=== PATIENT | male | born 1945 | race Caucasian/White ===

== ENCOUNTER 2024-02-26 10:42 | Inpatient (IN) | payer MEDICARE, OTHER, SELFPAY ==
[2024-02-26 10:49] VITALS: BP 144/72; PULSE 68; TEMP 36.6; O2SAT 97; BMI 29.1
--- NOTE | 2024-02-26 11:17 | ED.MALEGU1 ---
HPI - Male Genitourinary General Chief complaint: Urogenital-Male Stated complaint: difficulty urinating Time Seen by Provider: 02/26/24 10:44 Source: patient Mode of arrival: walk-in History of Present Illness HPI Narrative: 78-year-old male presents for urinary tract pain which occurs mostly when he urinates. He has been having issues over the last several months and has been to [facility] emergency department several times. He is also seen his urologist and had a procedure performed including cystoscopy. A week ago he was put on an antibiotic because of a suspected UTI. No fever or vomiting or flank pain Related Data Home Medications ?Medication ?Instructions ?Recorded ?Confirmed acetaminophen 500 mg capsule 1,000 mg PO Q6H PRN fever or pain 02/26/24 02/26/24 allopurinol 300 mg tablet 300 mg PO DAILY 02/26/24 02/26/24 amlodipine 10 mg tablet 10 mg PO DAILY 02/26/24 02/26/24 apixaban 5 mg tablet (Eliquis) 5 mg PO Q12H 02/26/24 02/26/24 aspirin 81 mg tablet,delayed 81 mg PO .weekly 02/26/24 02/26/24 release (Adult Aspirin Regimen) calcium 315 mg (as 1 tab PO DAILY 02/26/24 02/26/24 citrate)-vitamin D3 5 mcg (200 unit) tablet (Calcium Citrate + D) carvedilol 6.25 mg tablet 6.25 mg PO Q12H 02/26/24 02/26/24 cyanocobalamin (vitamin B-12) 1,000 mcg PO DAILY 02/26/24 02/26/24 1,000 mcg tablet (Vitamin B-12) diclofenac sodium 25 mg 25 mg PO BID PRN pain 02/26/24 02/26/24 tablet,delayed release empagliflozin 25 mg tablet 12.5 mg PO DAILY 02/26/24 02/26/24 (Jardiance) ferrous sulfate 325 mg (65 mg 325 mg PO DAILY 02/26/24 02/26/24 iron) tablet (iron) furosemide 20 mg tablet 20 mg PO Q12H 02/26/24 02/26/24 glipizide 10 mg tablet 10 mg PO BID 02/26/24 02/26/24 hydralazine 50 mg tablet 100 mg PO Q8H 02/26/24 02/26/24 insulin glargine 100 unit/mL (3 24 unit subcut BID 02/26/24 02/26/24 mL) subcutaneous pen multivitamin (Daily Multi-Vitamin 1 tab PO DAILY 02/26/24 02/26/24 tablet) omeprazole 20 mg capsule,delayed 20 mg PO DAILY 02/26/24 02/26/24 release semaglutide 1 mg/dose (4 mg/3 mL) 1 mg subcut QWEEK 02/26/24 02/26/24 subcutaneous pen injector (Ozempic) sildenafil 100 mg tablet 100 mg PO Q24H PRN sexual activity 02/26/24 02/26/24 simvastatin 20 mg tablet 20 mg PO DAILY 02/26/24 02/26/24 spironolactone 25 mg tablet 25 mg PO DAILY 02/26/24 02/26/24 tacrolimus 0.1 % topical ointment 1 applic topical Q12H PRN skin 02/26/24 02/26/24 irritation terazosin 10 mg capsule 10 mg PO DAILY 02/26/24 02/26/24 Allergies Allergy/AdvReac Type Severity Reaction Status Date / Time fosinopril (From Monopril) Allergy Severe shortness Verified 02/26/24 10:49 of breath metoprolol Allergy Severe shortness Verified 02/26/24 10:49 of breath strawberry Allergy Severe Rash Verified 02/26/24 13:21 Review of Systems ROS Narrative A ten point review of systems is negative except as noted above. [facility] Medical History (Updated 02/26/24 @ 14:35 by Mica Sawyer) Erectile dysfunction ?N52.9 - Male erectile dysfunction, unspecified (ICD-10) UTI (urinary tract infection) ?N39.0 - Urinary tract infection, site not specified (ICD-10) GERD (gastroesophageal reflux disease) ?K21.9 - Gastro-esophageal reflux disease without esophagitis (ICD-10) Hypertension ?I10 - Essential (primary) hypertension (ICD-10) Diabetes ?E11.9 - Type 2 diabetes mellitus without complications (ICD-10) Social History Little interest or pleasure in doing things: not at all Feeling down, depressed, or hopeless: not at all Exam Narrative Exam Narrative: Nurses note and vital signs reviewed and patient is not hypoxic. General: The patient appears well and in no apparent distress. Patient is resting comfortably on cart. Skin: Warm, dry, no pallor noted. There is no rash noted. Head: Normocephalic, atraumatic Eye: Normal conjunctiva, no drainage Ears, Nose, Mouth, and Throat: oral mucosa is moist. Nares patent. Cardiovascular: Regular Rate and Rhythm Respiratory: Patient is in no distress, no accessory muscle use, lungs are clear to auscultation, no wheezing, rales or rhonchi Back: non-tender, no CVA tenderness bilaterally to percussion. GI: Soft and nontender Musculoskeletal: The patient has no evidence of calf tenderness, no pitting edema, symmetrical pulses noted bilaterally Neurological: A&O, normal speech Psychiatric: Cooperative Constitutional Vital Signs, click to edit/add: Last Vital Signs Temp 98 F 02/26/24 10:49 Pulse 69 02/26/24 14:27 Resp 16 02/26/24 14:27 BP 136/75 02/26/24 14:27 Pulse Ox 97 02/26/24 14:27 O2 Del Method Room Air 02/26/24 10:49 Course Vital Signs Vital signs: Vital Signs Temperature 98 F 02/26/24 10:49 Pulse Rate 68 02/26/24 10:49 Respiratory Rate 18 02/26/24 10:49 Blood Pressure 144/72 H 02/26/24 10:49 Pulse Oximetry 97 02/26/24 10:49 Oxygen Delivery Method Room Air 02/26/24 10:49 Temperature 98 F 02/26/24 10:49 Pulse Rate 69 02/26/24 14:27 Respiratory Rate 16 02/26/24 14:27 Blood Pressure 136/75 02/26/24 14:27 Pulse Oximetry 97 02/26/24 14:27 Oxygen Delivery Method Room Air 02/26/24 10:49 MDM - Male Genitourinary MDM Narrative Medical decision making narrative: UTI is identified with his urinalysis. CAT scan shows cystitis but no evidence of pyelonephritis. He has failed outpatient therapy and is being admitted for IV antibiotics. Treatment diagnosis and disposition were discussed with the patient. Differential Diagnosis Differential diagnosis: Likely urinary tract infection, acute retention of urine and other (Pyelonephritis) Lab Data Attestation: I reviewed the patient's lab results. Labs: Lab Results 02/26/24 02/26/24 Range/Units 11:30 11:40 WBC 10.7 (4.0-11.0) 10^3/uL RBC 3.81 L (4.70-6.10) 10^6/uL Hgb 12.1 L (14.0-18.0) g/dL Hct 36.6 L (42.0-54.0) % MCV 96.1 H (80.0-94.0) fL MCH 31.8 (25.9-34.0) pg MCHC 33.1 (29.9-35.2) g/dL RDW 13.8 (11.0-15.0) % Plt Count 287 (150-450) 10^3/uL MPV 8.8 L (9.5-13.5) fL Neut % (Auto) 70.1 (43.0-75.0) % Lymph % (Auto) 17.0 L (20.5-60.0) % [place] % (Auto) 8.8 (1.7-12.0) % Eos % (Auto) 3.2 (0.9-7.0) % Baso % (Auto) 0.5 (0.2-2.0) % Neut # (Auto) 7.5 H (1.4-6.5) 10^3/uL Lymph # (Auto) 1.8 (1.2-3.8) 10^3/uL [place] # (Auto) 0.9 H (0.3-0.8) 10^3/uL Eos # (Auto) 0.3 (0.0-0.7) 10^3/uL Baso # (Auto) 0.1 (0.0-0.1) 10^3/uL Abs Immat Gran (auto) 0.04 H (0.00-0.03) 10^3/uL Imm/Tot Granulo (auto) 0.4 (0.0-0.5) % Sodium 139 (136-145) mmol/L Potassium 3.8 (3.5-5.1) mmol/L Chloride 105 (98-107) mmol/L Carbon Dioxide 24.1 (21.0-32.0) mmol/L Anion Gap 13.7 BUN 28.0 H (7.0-18.0) mg/dL Creatinine 2.01 H (0.70-1.30) mg/dL Est GFR ( Amer) 39 L (>=60 mL/min/1.73m^2) Est GFR (Non-Af Amer) 32 L (>=60 mL/min/1.73m^2) BUN/Creatinine Ratio 13.9 Glucose 219 H (74-106) mg/dL Lactate 0.8 (0.4-2.0) mmol/L Calcium 9.2 (8.5-10.1) mg/dL Total Bilirubin 0.3 (0.2-1.0) mg/dL Direct Bilirubin 0.1 (0.0-0.2) mg/dL AST 12 L (15-37) U/L ALT 16 (16-63) U/L Alkaline Phosphatase 77 (46-116) U/L Total Protein 6.4 (6.4-8.2) g/dL Albumin 3.0 L (3.4-5.0) g/dL Globulin 3.4 g/dL Albumin/Globulin Ratio 0.9 Urine Color Lt yellow (YELLOW) Urine Clarity Cloudy A (CLEAR) Urine pH 6.0 (5.0-9.0) Ur Specific [place] 1.015 (1.005-1.025) Urine Protein 100 A (NEG/TRACE) mg/dL Urine Glucose (UA) >=1000 A (NEGATIVE) mg/dL Urine Ketones Negative (NEGATIVE) mg/dL Urine Occult Blood Trace-i (NEGATIVE) Urine Nitrite Negative (NEGATIVE) Urine Bilirubin Negative (NEGATIVE) Urine Urobilinogen 0.2 (0.2-1.0) EU/dL Ur Leukocyte Esterase Moderate A (NEGATIVE) Urine RBC 0-2 (0-2) #/HPF Urine WBC >100 A (NONE SEEN) #/HPF Ur Squamous Epith Cells Rare (NONE/RARE) #/LPF Urine Crystals None seen (None Seen) #/HPF Urine Bacteria Trace A (NONE SEEN) #/HPF Urine Casts None seen (NONE SEEN) #/LPF Urine Mucus None seen (NONE SEEN) Urine Yeast Seen A (NONE SEEN) Ur Culture Indicated? Yes Imaging Data CT scan - abdomen: Radiologist's impression: ITS Impressions Abdomen/Pelvis CT 02/26/24 12:15 IMPRESSION: 1. Circumferential wall thickening and trabeculation of the bladder likely sequelae of chronic outlet obstruction in the setting of prostatomegaly. Superimposed cystitis. 2. Colonic diverticulosis without diverticulitis. Electronically authenticated by: KAYLIE FELIZ Date: 02/26/2024 14:22 Discharge Plan Discharge Chief Complaint: Urogenital-Male Clinical Impression: Urinary tract infection, Failure of outpatient treatment Patient Disposition: Admitted as Observation Time of Disposition Decision: 13:14 Condition: Good
[2024-02-26 11:54] LABS: Basophils Absolute Auto 0.1 10^3/uL (0.0-0.1); Basophils Percent Auto 0.5 % (0.2-2.0); Eosinophils Absolute Auto 0.3 10^3/uL (0.0-0.7); Eosinophils Percent Auto 3.2 % (0.9-7.0); Hematocrit 36.6 % (42.0-54.0); Hemoglobin 12.1 g/dL (14.0-18.0); Immature Granulocytes Abs Auto 0.04 10^3/uL (0.00-0.03); Immature Granulocytes Pct Auto 0.4 % (0.0-0.5); Lymphocytes Absolute Auto 1.8 10^3/uL (1.2-3.8); Mean Corpuscular HGB Conc 33.1 g/dL (29.9-35.2); Mean Corpuscular Hemoglobin 31.8 pg (25.9-34.0); Mean Corpuscular Volume 96.1 fL (80.0-94.0); Mean Platelet Volume 8.8 fL (9.5-13.5); Monocytes Absolute Auto 0.9 10^3/uL (0.3-0.8); Monocytes Percent Auto 8.8 % (1.7-12.0); Neutrophils Absolute Auto 7.5 10^3/uL (1.4-6.5); Neutrophils Percent Auto 70.1 % (43.0-75.0); Platelet Count 287 10^3/uL (150-450); Red Blood Count 3.81 10^6/uL (4.70-6.10); Red Cell Distribution Width 13.8 % (11.0-15.0); White Blood Count 10.7 10^3/uL (4.0-11.0)
[2024-02-26 11:54] LABS: Bilirubin Urine NEGATIVE (NEGATIVE); Blood Urine TRACE-I (NEGATIVE); Glucose Urine UA >=1000 mg/dL (NEGATIVE); Ketones Urine NEGATIVE (NEGATIVE); Leukocyte Esterase Urine MODERATE (NEGATIVE); Nitrite Urine NEGATIVE (NEGATIVE); Protein Urine 100 mg/dL (NEG/TRACE); Specific Gravity Urine 1.015 (1.005-1.025); Urobilinogen Urine 0.2 EU/dL (0.2-1.0)
[2024-02-26 12:02] LABS: Clarity Urine CLOUDY (CLEAR); Color Urine LT YELLOW (YELLOW)
[2024-02-26 12:03] LABS: Anion Gap 13.7; BUN Creatinine Ratio 13.9; Calcium 9.2 mg/dL (8.5-10.1); Carbon Dioxide 24.1 mmol/L (21.0-32.0); Chloride 105 mmol/L (98-107); Estimated GFR (African America 39 (>=60 mL/min/1.73m^2); Estimated GFR (Non-African Ame 32 (>=60 mL/min/1.73m^2); Glucose 219 mg/dL (74-106); Potassium 3.8 mmol/L (3.5-5.1); Sodium 139 mmol/L (136-145)
[2024-02-26 12:03] LABS: Bacteria Urine TRACE #/HPF (NONE SEEN); WBC Urine >100 #/HPF (NONE SEEN)
[2024-02-26 12:04] LABS: Mucus Urine NONE SEEN (NONE SEEN); Squamous Epithelial Cell Urine RARE #/LPF (NONE/RARE)
[2024-02-26 12:05] LABS: Cast Seen? NONE SEEN #/LPF (NONE SEEN); Crystals Seen? None Seen #/HPF (None Seen); RBC Urine 0-2 #/HPF (0-2); Urine Culture Indicated YES
--- NOTE | 2024-02-26 12:15 | CT_ITS ---
[address] [address] Patient Name: LEIGHTON ARCINIEGA MRN: [id number] date: 1945 Sex: M Assigned Patient Location: ER Current Patient Location: [facility] Accession/Order Number: [id number] Exam Date: 02/26/2024 12:51 Report Date: 02/26/2024 14:22 At the request of: CHRISTINE SYKES Procedure: CT abdomen pelvis wo con EXAM: CT abdomen pelvis wo con INDICATION: Pain, UTI, elevated creatinine. COMPARISON: None. TECHNIQUE: Multiple contiguous axial CT images of the abdomen and pelvis were obtained without the use of intravenous contrast. Sagittal and coronal reconstructions were performed. Dose reduction techniques were achieved by using: automated exposure control and/or adjustment of mA and /or kV according to patient size and/or use of iterative reconstruction technique. FINDINGS: Evaluation of visceral organs limited by noncontrast technique. LOWER CHEST: Subdermal 2.3 cm sebaceous cyst noted in the right lower chest. ABDOMEN AND PELVIS: LIVER: Punctate calcified granulomas. BILIARY SYSTEM: Normal gallbladder. No biliary ductal dilatation. PANCREAS: Unremarkable. SPLEEN: Punctate calcified granulomas. ADRENAL GLANDS: Normal. URINARY SYSTEM: Right renal 2.0 cm cyst. Unremarkable left kidney. No hydronephrosis or urolithiasis. Circumferential wall thickening and trabeculation of the bladder. Mild pericystic inflammation. REPRODUCTIVE: Enlarged prostate gland. GASTROINTESTINAL TRACT: Normal caliber bowel. No bowel wall thickening or inflammation. Colonic diverticulosis without diverticulitis. Normal appendix. VESSELS: Nonaneurysmal abdominal aorta with moderate atherosclerotic calcifications. LYMPH NODES: No adenopathy. PERITONEUM: No ascites or pneumoperitoneum. MUSCULOSKELETAL: SOFT TISSUES: Unremarkable soft tissues. BONES: No acute osseous abnormality or suspicious osseous lesion. Grade 1 retrolisthesis of L3 on L4. Moderate degenerative changes of the lumbar spine. SEVERINO: (series:image) CT/CT abdomen pelvis wo con IMPRESSION: 1. Circumferential wall thickening and trabeculation of the bladder likely sequelae of chronic outlet obstruction in the setting of prostatomegaly. Superimposed cystitis. 2. Colonic diverticulosis without diverticulitis. Electronically authenticated by: KAYLIE FELIZ Date: 02/26/2024 14:22
[2024-02-26] MEDS: CEFTRIAXONE 1,000 MG in 0.9 % SODIUM CHLORIDE 50 ML 100 MG IV (12:16)
--- NOTE | 2024-02-26 13:45 | P.HP_ITS ---
HPI H&P: HPI History of Present Illness Chief complaint: difficulty urinating Narrative: Patient presented to the room with difficulty urinating. Patient has been in and out of the emergency room's 3 times in the last 3 weeks. Treated with multiple antibiotics. Found to have acute UTI here, some mild uncontrolled hypertension, patient will be admitted for workup and treatment of failed outpatient therapy for acute urinary tract infection When I saw patient in the emergency room, he was resting comfortably in bed, denied any other complaints other than pressure in the lower abdomen Opioid HPI Opioid Management Most Recent Pain and Opioid Data: No Data to Display Review of Systems ROS Status of ROS 10 or more systems reviewed and unremark able except as noted in history and below [facility] Medical History (Updated 02/26/24 @ 13:14 by Hector Vasquez MD) UTI (urinary tract infection) ?N39.0 - Urinary tract infection, site not specified (ICD-10) GERD (gastroesophageal reflux disease) ?K21.9 - Gastro-esophageal reflux disease without esophagitis (ICD-10) Hypertension ?I10 - Essential (primary) hypertension (ICD-10) Diabetes ?E11.9 - Type 2 diabetes mellitus without complications (ICD-10) Social History Little interest or pleasure in doing things: not at all Feeling down, depressed, or hopeless: not at all Meds Home Medications and Allergies Home Medications ?Medication ?Instructions ?Recorded ?Confirmed ?Type acetaminophen 500 mg capsule 1,000 mg PO Q6H PRN fever or pain 02/26/24 02/26/24 History allopurinol 300 mg tablet 300 mg PO DAILY 02/26/24 02/26/24 History amlodipine 10 mg tablet 10 mg PO DAILY 02/26/24 02/26/24 History apixaban 5 mg tablet (Eliquis) 5 mg PO Q12H 02/26/24 02/26/24 History aspirin 81 mg tablet,delayed 81 mg PO .weekly 02/26/24 02/26/24 History release (Adult Aspirin Regimen) calcium 315 mg (as 1 tab PO DAILY 02/26/24 02/26/24 History citrate)-vitamin D3 5 mcg (200 unit) tablet (Calcium Citrate + D) carvedilol 6.25 mg tablet 6.25 mg PO Q12H 02/26/24 02/26/24 History cyanocobalamin (vitamin B-12) 1,000 mcg PO DAILY 02/26/24 02/26/24 History 1,000 mcg tablet (Vitamin B-12) diclofenac sodium 25 mg 25 mg PO BID PRN pain 02/26/24 02/26/24 History tablet,delayed release empagliflozin 25 mg tablet 12.5 mg PO DAILY 02/26/24 02/26/24 History (Jardiance) ferrous sulfate 325 mg (65 mg 325 mg PO DAILY 02/26/24 02/26/24 History iron) tablet (iron) furosemide 20 mg tablet 20 mg PO Q12H 02/26/24 02/26/24 History glipizide 10 mg tablet 10 mg PO BID 02/26/24 02/26/24 History hydralazine 50 mg tablet 100 mg PO Q8H 02/26/24 02/26/24 History insulin glargine 100 unit/mL (3 24 unit subcut BID 02/26/24 02/26/24 History mL) subcutaneous pen multivitamin (Daily Multi-Vitamin 1 tab PO DAILY 02/26/24 02/26/24 History tablet) omeprazole 20 mg capsule,delayed 20 mg PO DAILY 02/26/24 02/26/24 History release semaglutide 1 mg/dose (4 mg/3 mL) 1 mg subcut QWEEK 02/26/24 02/26/24 History subcutaneous pen injector (Ozempic) sildenafil 100 mg tablet 100 mg PO Q24H PRN sexual activity 02/26/24 02/26/24 History simvastatin 20 mg tablet 20 mg PO DAILY 02/26/24 02/26/24 History spironolactone 25 mg tablet 25 mg PO DAILY 02/26/24 02/26/24 History tacrolimus 0.1 % topical ointment 1 applic topical Q12H PRN skin 02/26/24 02/26/24 History irritation terazosin 10 mg capsule 10 mg PO DAILY 02/26/24 02/26/24 History Allergies Allergy/AdvReac Type Severity Reaction Status Date / Time fosinopril (From Monopril) Allergy Severe shortness Verified 02/26/24 10:49 of breath metoprolol Allergy Severe shortness Verified 02/26/24 10:49 of breath strawberry Allergy Severe Rash Verified 02/26/24 13:21 Exam Constitutional Vital Signs, click to edit/add: Last Vital Signs Temp 98 F 02/26/24 10:49 Pulse 68 02/26/24 10:49 Resp 18 02/26/24 10:49 BP 144/72 H 02/26/24 10:49 Pulse Ox 97 02/26/24 10:49 O2 Del Method Room Air 02/26/24 10:49 Documenting provider has reviewed patient's vital signs: yes Common normals: no apparent distress HENMT Common normals: normocephalic Chest Common normals: inspection of chest normal Respiratory Common normals: normal respiratory effort and no retractions Cardio Common normals: regular rate and regular rhythm GI Common normals: Normal to inspection, nondistended, normoactive bowel sounds present and soft to palpation Back & Pelvis Common normals: thoracic and lumbar spine normal to inspection Extremity Common normals: normal to inspection and full ROM Neuro Common normals: oriented x3 Results Labs Labs: Short CBC 02/26/24 Range/Units 11:30 WBC 10.7 (4.0-11.0) 10^3/uL Hgb 12.1 L (14.0-18.0) g/dL Hct 36.6 L (42.0-54.0) % Plt Count 287 (150-450) 10^3/uL BMP 02/26/24 11:30 Sodium 139 Potassium 3.8 Chloride 105 Carbon Dioxide 24.1 BUN 28.0 H Creatinine 2.01 H Glucose 219 H Calcium 9.2 Urine 02/26/24 Range/Units 11:40 Urine Color Lt yellow (YELLOW) Urine Clarity Cloudy A (CLEAR) Urine pH 6.0 (5.0-9.0) Ur Specific [place] 1.015 (1.005-1.025) Urine Protein 100 A (NEG/TRACE) mg/dL Urine Glucose (UA) >=1000 A (NEGATIVE) mg/dL Assessment and Plan Assessment and Plan (1) Failure of outpatient treatment: (2) Urinary tract infection: (3) UTI (urinary tract infection): (4) GERD (gastroesophageal reflux disease): (5) Hypertension: (6) Diabetes: Plan Admission findings: Uncontrolled hypertension, acute urinary tract infection with failed outpatient treatment over the last 3 weeks at 3 different outside facilities. Acute UTI-check blood culture and urine cultures, start IV antibiotics, Rocephin and Cipro to start with. Try to tract on other urine cultures at outside facilities. 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 Continue with current medications Gout-continue with home medications Iron deficiency anemia-monitor daily Atrial fibrillation with pacemaker placement-rate controlled Chronic kidney disease stage IV-fairly stable here COPD-no acute exacerbation Admission status: Patient with failed outpatient treatment of acute UTI, checking on urine culture results, with no elevation in his white blood cell count and no fevers, will start patient off as observation status. If he fails to improve in the observational time period, he will require inpatient status is medically necessary treatment will span 2 midnights
[2024-02-26 14:02] LABS: Alanine Aminotransferase 16 U/L (16-63); Albumin Globulin Ratio 0.9; Alkaline Phosphatase 77 U/L (46-116); Aspartate Amino Transferase 12 U/L (15-37); Bilirubin Direct 0.1 mg/dL (0.0-0.2); Bilirubin Total 0.3 mg/dL (0.2-1.0); Globulin 3.4 g/dL; Total Protein 6.4 g/dL (6.4-8.2)
[2024-02-26 14:06] LABS: Lactate/Lactic Acid 0.8 mmol/L (0.4-2.0)
[2024-02-26 14:27] VITALS: BP 136/75; PULSE 69; O2SAT 97
[2024-02-26 15:16] VITALS: BP 144/70; PULSE 79; TEMP 36.2; O2SAT 94; BMI 29.2
[2024-02-26 16:08] LABS: Glucometer 120 mg/dL (74-106)
[2024-02-26] MEDS: CIPROFLOXACIN IN 5 % DEXTROSE 400 MG/200 ML PREMIX 200 MG IV (17:03)
[2024-02-26] MEDS: 0.9 % SODIUM CHLORIDE 250 ML 10 ML IV (17:03)
[2024-02-26 17:07] VITALS: O2SAT 97
[2024-02-26 20:00] VITALS: BP 168/71; PULSE 68; TEMP 36.4; O2SAT 95
[2024-02-26 21:11] LABS: Glucometer 312 mg/dL (74-106)
[2024-02-26] MEDS: CARVEDILOL 6.25 MG TABLET PO (21:15)
[2024-02-26] MEDS: GLIPIZIDE 10 MG TABLET PO (21:15)
[2024-02-26] MEDS: APIXABAN 5 MG TABLET PO (21:15)
[2024-02-26] MEDS: ATORVASTATIN CALCIUM 10 MG TABLET PO (21:15)
[2024-02-26] MEDS: INSULIN ASPART 300 UNIT/3 ML PEN SUBQ (21:17)
[2024-02-26] MEDS: HYDRALAZINE HCL 50 MG TABLET 100 MG PO (21:17)
[2024-02-26] MEDS: INSULIN GLARGINE 300 UNIT/3 ML INSULN.PEN 24 UNIT SQ (21:18)
[2024-02-26 22:38] VITALS: O2SAT 95
[2024-02-27] VITALS (7 sets, daily range): BP systolic 144–158; BP diastolic 67–74; PULSE 62–79; TEMP 36.4–36.9; O2SAT 94–97
[2024-02-27 00:08] LABS: Glucometer 61 mg/dL (74-106)
[2024-02-27] MEDS: CIPROFLOXACIN IN 5 % DEXTROSE 400 MG/200 ML PREMIX 100 MG IV (02:22)
[2024-02-27] MEDS: HYDRALAZINE HCL 50 MG TABLET 100 MG PO ×2 (06:17→21:32)
[2024-02-27] MEDS: SPIRONOLACTONE 25 MG TABLET PO (06:17)
[2024-02-27] MEDS: OMEPRAZOLE 20 MG CAPSULE.DR PO (06:18)
[2024-02-27 06:52] LABS: Basophils Percent Auto 0.3 % (0.2-2.0); Eosinophils Absolute Auto 0.3 10^3/uL (0.0-0.7); Eosinophils Percent Auto 3.7 % (0.9-7.0); Hematocrit 35.5 % (42.0-54.0); Hemoglobin 11.6 g/dL (14.0-18.0); Immature Granulocytes Abs Auto 0.03 10^3/uL (0.00-0.03); Immature Granulocytes Pct Auto 0.3 % (0.0-0.5); Lymphocytes Absolute Auto 2.2 10^3/uL (1.2-3.8); Mean Corpuscular HGB Conc 32.7 g/dL (29.9-35.2); Mean Corpuscular Hemoglobin 31.4 pg (25.9-34.0); Mean Corpuscular Volume 96.2 fL (80.0-94.0); Mean Platelet Volume 8.6 fL (9.5-13.5); Monocytes Absolute Auto 0.9 10^3/uL (0.3-0.8); Monocytes Percent Auto 10.1 % (1.7-12.0); Neutrophils Absolute Auto 5.7 10^3/uL (1.4-6.5); Neutrophils Percent Auto 61.6 % (43.0-75.0); Platelet Count 282 10^3/uL (150-450); Red Blood Count 3.69 10^6/uL (4.70-6.10); Red Cell Distribution Width 13.7 % (11.0-15.0); White Blood Count 9.3 10^3/uL (4.0-11.0)
[2024-02-27 07:04] LABS: Carbon Dioxide 24.6 mmol/L (21.0-32.0); Chloride 106 mmol/L (98-107); Potassium 3.9 mmol/L (3.5-5.1); Sodium 140 mmol/L (136-145)
[2024-02-27 07:05] LABS: Anion Gap 13.3; BUN Creatinine Ratio 15.3; Calcium 9.1 mg/dL (8.5-10.1); Estimated GFR (African America 42 (>=60 mL/min/1.73m^2); Estimated GFR (Non-African Ame 34 (>=60 mL/min/1.73m^2); Glucose 187 mg/dL (74-106)
[2024-02-27] MEDS: MULTIVITAMIN TABLET 1 TAB PO (08:56)
[2024-02-27] MEDS: APIXABAN 5 MG TABLET PO ×2 (08:56→21:26)
[2024-02-27] MEDS: FERROUS SULFATE 325 MG TABLET PO (08:56)
[2024-02-27] MEDS: CANAGLIFLOZIN 100 MG TABLET 300 MG PO (08:56)
[2024-02-27] MEDS: AMLODIPINE BESYLATE 5 MG TABLET 10 MG PO (08:56)
[2024-02-27] MEDS: CARVEDILOL 6.25 MG TABLET PO ×2 (08:56→21:26)
[2024-02-27] MEDS: GLIPIZIDE 10 MG TABLET PO ×2 (08:56→21:26)
[2024-02-27] MEDS: ALLOPURINOL 300 MG TABLET PO (08:56)
[2024-02-27] MEDS: TERAZOSIN HCL 5 MG CAPSULE 10 MG PO (08:56)
[2024-02-27] MEDS: INSULIN GLARGINE 300 UNIT/3 ML INSULN.PEN 24 UNIT SQ (08:58)
[2024-02-27] MEDS: FUROSEMIDE 20 MG TABLET PO ×2 (09:07→21:26)
--- NOTE | 2024-02-27 09:35 | P.PN_ITS ---
Progress Note: Subjective Subjective Interval history: Patient still with significant lower abdominal pain from bladder spasms. Exam Constitutional Vital Signs, click to edit/add: Last Vital Signs Temp 98.0 F 02/27/24 08:01 Pulse 77 02/27/24 08:01 Resp 18 02/27/24 08:01 BP 146/69 H 02/27/24 08:01 Pulse Ox 96 02/27/24 08:01 O2 Del Method Room Air 02/27/24 08:01 Documenting provider has reviewed patient's vital signs: yes Common normals: no apparent distress HENMT Common normals: normocephalic Chest Common normals: inspection of chest normal Respiratory Common normals: normal respiratory effort and no retractions Cardio Common normals: regular rate and regular rhythm GI Common normals: Normal to inspection, nondistended, normoactive bowel sounds present and soft to palpation; tender Palpation: tender Details: suprapubic Back & Pelvis Common normals: thoracic and lumbar spine normal to inspection Extremity Common normals: normal to inspection and full ROM Neuro Common normals: oriented x3 Progress Note: Objective Labs Labs: Short CBC 02/26/24 02/27/24 Range/Units 11:30 06:31 WBC 10.7 9.3 (4.0-11.0) 10^3/uL Hgb 12.1 L 11.6 L (14.0-18.0) g/dL Hct 36.6 L 35.5 L (42.0-54.0) % Plt Count 287 282 (150-450) 10^3/uL BMP 02/26/24 02/27/24 11:30 06:31 Sodium 139 140 Potassium 3.8 3.9 Chloride 105 106 Carbon Dioxide 24.1 24.6 BUN 28.0 H 29.0 H Creatinine 2.01 H 1.90 H Glucose 219 H 187 H Calcium 9.2 9.1 Liver Function 02/26/24 Range/Units 11:30 Total Bilirubin 0.3 (0.2-1.0) mg/dL Direct Bilirubin 0.1 (0.0-0.2) mg/dL AST 12 L (15-37) U/L ALT 16 (16-63) U/L Alkaline Phosphatase 77 (46-116) U/L Albumin 3.0 L (3.4-5.0) g/dL Urine 02/26/24 Range/Units 11:40 Urine Color Lt yellow (YELLOW) Urine Clarity Cloudy A (CLEAR) Urine pH 6.0 (5.0-9.0) Ur Specific [place] 1.015 (1.005-1.025) Urine Protein 100 A (NEG/TRACE) mg/dL Urine Glucose (UA) >=1000 A (NEGATIVE) mg/dL Progress Note: A&P Assessment and Plan (1) Failure of outpatient treatment: (2) Urinary tract infection: (3) GERD (gastroesophageal reflux disease): (4) Hypertension: (5) Diabetes: Plan Admission findings: Uncontrolled hypertension, acute urinary tract infection with failed outpatient treatment over the last 3 weeks at 3 different outside facilities. 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 Continue with current medications Gout-continue with home medications Iron deficiency anemia-monitor daily Atrial fibrillation with pacemaker placement-rate controlled Chronic kidney disease stage IV--improved today COPD-no acute exacerbation Admission status: Patient with failed outpatient treatment of acute UTI, checking on urine culture results, with no elevation in his white blood cell count and no fevers, will start patient off as observation status. Patient was still with significant symptoms, unable to discharge home, medically necessary treatment will span 2 midnights. Inpatient status. ?
[2024-02-27] MEDS: CEFTRIAXONE 1,000 MG in 0.9 % SODIUM CHLORIDE 50 ML 100 MG IV (11:49)
[2024-02-27] MEDS: HYOSCYAMINE SULFATE 0.125 MG TAB.SUBL SL ×3 (11:49→21:26)
[2024-02-27] MEDS: INSULIN ASPART 300 UNIT/3 ML PEN SUBQ ×2 (13:18→18:25)
[2024-02-27] MEDS: CIPROFLOXACIN IN 5 % DEXTROSE 400 MG/200 ML PREMIX 125 MG IV (15:36)
[2024-02-27 20:27] LABS: Glucometer 141 mg/dL (74-106)
[2024-02-27] MEDS: CALCIUM CARBONATE 600 MG/VITAMIN D3 400 IU TABLET 1 TAB PO (21:26)
[2024-02-27] MEDS: ATORVASTATIN CALCIUM 10 MG TABLET PO (21:26)
[2024-02-28] VITALS: BP 114/62; PULSE 78; TEMP 36.8; O2SAT 94
[2024-02-28] MEDS: CIPROFLOXACIN IN 5 % DEXTROSE 400 MG/200 ML PREMIX 200 MG IV (03:25)
[2024-02-28 04:31] VITALS: BP 135/71; PULSE 70; TEMP 36.7; O2SAT 94
[2024-02-28] MEDS: OMEPRAZOLE 20 MG CAPSULE.DR PO (05:48)
[2024-02-28] MEDS: HYOSCYAMINE SULFATE 0.125 MG TAB.SUBL SL ×2 (05:48→12:19)
[2024-02-28] MEDS: HYDRALAZINE HCL 50 MG TABLET 100 MG PO ×2 (05:48→15:26)
[2024-02-28] MEDS: SPIRONOLACTONE 25 MG TABLET PO (05:48)
[2024-02-28 06:27] LABS: Basophils Percent Auto 0.4 % (0.2-2.0); Eosinophils Absolute Auto 0.5 10^3/uL (0.0-0.7); Eosinophils Percent Auto 4.2 % (0.9-7.0); Hematocrit 35.7 % (42.0-54.0); Hemoglobin 11.7 g/dL (14.0-18.0); Immature Granulocytes Abs Auto 0.04 10^3/uL (0.00-0.03); Immature Granulocytes Pct Auto 0.4 % (0.0-0.5); Lymphocytes Absolute Auto 2.2 10^3/uL (1.2-3.8); Mean Corpuscular HGB Conc 32.8 g/dL (29.9-35.2); Mean Corpuscular Hemoglobin 31.7 pg (25.9-34.0); Mean Corpuscular Volume 96.7 fL (80.0-94.0); Mean Platelet Volume 8.8 fL (9.5-13.5); Monocytes Percent Auto 8.7 % (1.7-12.0); Neutrophils Absolute Auto 7.6 10^3/uL (1.4-6.5); Neutrophils Percent Auto 67.3 % (43.0-75.0); Platelet Count 282 10^3/uL (150-450); Red Blood Count 3.69 10^6/uL (4.70-6.10); Red Cell Distribution Width 13.8 % (11.0-15.0); White Blood Count 11.3 10^3/uL (4.0-11.0)
[2024-02-28 06:42] LABS: Anion Gap 13.4; BUN Creatinine Ratio 15.6; Calcium 9.2 mg/dL (8.5-10.1); Carbon Dioxide 24.5 mmol/L (21.0-32.0); Chloride 106 mmol/L (98-107); Estimated GFR (African America 40 (>=60 mL/min/1.73m^2); Estimated GFR (Non-African Ame 33 (>=60 mL/min/1.73m^2); Glucose 172 mg/dL (74-106); Potassium 3.9 mmol/L (3.5-5.1); Sodium 140 mmol/L (136-145)
--- NOTE | 2024-02-28 07:03 | P.DS_ITS ---
DS: Providers Provider Date of admission: 02/27/24 08:00 Primary care physician: Jayy Dutta MD Consults: 02/26/24 13:36 Occupational Therapy Eval and Treat Routine Reason for consultation: Only if needed for Rehab Has provider been notified: No Physical Therapy Eval and Treat Routine Reason for consultation: Eval and Treat Has provider been notified: No DS: Diagnosis Discharge Diagnosis (1) Failure of outpatient treatment: (2) Urinary tract infection: (3) GERD (gastroesophageal reflux disease): (4) Hypertension: (5) Diabetes: Plan Admission findings: Uncontrolled hypertension, acute urinary tract infection with failed outpatient treatment over the last 3 weeks at 3 different outside facilities. 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 Continue with current medications Gout-continue with home medications Iron deficiency anemia-monitor daily Atrial fibrillation with pacemaker placement-rate controlled Chronic kidney disease stage IV--improved today COPD-no acute exacerbation Admission status: Patient with failed outpatient treatment of acute UTI, checking on urine culture results, with no elevation in his white blood cell count and no fevers, will start patient off as observation status. Patient was still with significant symptoms, unable to discharge home, medically necessary treatment will span 2 midnights. Inpatient status. ? DS: Summary Hospital Course Hospital Course: Patient admitted after failed outpatient treatment of acute UTI, has been in the emergency room 3 times plus seeing a urologist. With the pain and symptoms persisting is a admitted placed on IV antibiotics. Somewhat symptom improved but not resolved, culture negative however, but will send patient home with a change in antibiotics, see urology later this week, follow-up with PCP later this week also. Time Spent with Patient Time attestation: Total time spent providing and/or coordinating discharge services: Exam Constitutional Vital Signs, click to edit/add: Last Vital Signs Temp 98.0 F 02/28/24 04:31 Pulse 70 02/28/24 04:31 Resp 18 02/28/24 04:31 BP 135/71 02/28/24 04:31 Pulse Ox 94 L 02/28/24 04:31 O2 Del Method Room Air 02/28/24 04:31 Documenting provider has reviewed patient's vital signs: yes HENMT Common normals: normocephalic Chest Common normals: inspection of chest normal Respiratory Common normals: normal respiratory effort and no retractions Cardio Common normals: regular rate, regular rhythm and no murmurs GI Common normals: Normal to inspection, nondistended, normoactive bowel sounds present and soft to palpation; tender Palpation: tender Details: suprapubic Back & Pelvis Common normals: thoracic and lumbar spine normal to inspection Extremity Common normals: normal to inspection and full ROM Neuro Common normals: oriented x3 DS: Data Data Completed and Pending Labs on day of discharge: Labs from last 24 hours 02/28/24 02/27/24 02/27/24 05:50 20:26 06:31 WBC 11.3 H RBC 3.69 L Hgb 11.7 L Hct 35.7 L MCV 96.7 H MCH 31.7 MCHC 32.8 RDW 13.8 Plt Count 282 MPV 8.8 L Neut % (Auto) 67.3 Lymph % (Auto) 19.0 L [place] % (Auto) 8.7 Eos % (Auto) 4.2 Baso % (Auto) 0.4 Neut # (Auto) 7.6 H Lymph # (Auto) 2.2 [place] # (Auto) 1.0 H Eos # (Auto) 0.5 Baso # (Auto) 0.0 Abs Immat Gran (auto) 0.04 H Imm/Tot Granulo (auto) 0.4 Sodium 140 140 Potassium 3.9 3.9 Chloride 106 106 Carbon Dioxide 24.5 24.6 Anion Gap 13.4 13.3 BUN 31.0 H 29.0 H Creatinine 1.99 H 1.90 H Est GFR ( Amer) 40 L 42 L Est GFR (Non-Af Amer) 33 L 34 L BUN/Creatinine Ratio 15.6 15.3 Glucose 172 H 187 H Calcium 9.2 9.1 POC Glucose 141 H Discharge Plan Discharge Disposition: Home, Self-Care Condition: Good Discharge Medications: New ciprofloxacin HCl [Cipro] 500 mg tablet 500 mg PO Q12H Qty: 20 0RF hyoscyamine sulfate 0.125 mg Tablet, Sublingual 0.125 mg sublingual QID Qty: 30 0RF Continued carvedilol 6.25 mg tablet 6.25 mg PO Q12H glipizide 10 mg tablet 10 mg PO BID spironolactone 25 mg tablet 25 mg PO DAILY amlodipine 10 mg tablet 10 mg PO DAILY simvastatin 20 mg tablet 20 mg PO DAILY omeprazole 20 mg capsule,delayed release(DR/EC) 20 mg PO DAILY allopurinol 300 mg tablet 300 mg PO DAILY hydralazine 50 mg tablet 100 mg PO Q8H furosemide 20 mg tablet 20 mg PO Q12H Eliquis 5 mg tablet 5 mg PO Q12H Jardiance 25 mg tablet 12.5 mg PO DAILY cyanocobalamin (vitamin B-12) [Vitamin B-12] 1,000 mcg tablet 1,000 mcg PO DAILY aspirin [Adult Aspirin Regimen] 81 mg tablet,delayed release (DR/EC) 81 mg PO .weekly calcium citrate-vitamin D3 [Calcium Citrate + D] 315 mg-5 mcg (200 unit) tablet 1 tab PO DAILY multivitamin [Daily Multi-Vitamin] Tablet 1 tab PO DAILY insulin glargine 100 unit/mL (3 mL) insulin pen 24 unit subcut BID acetaminophen 500 mg capsule 1,000 mg PO Q6H PRN (Reason: fever or pain) terazosin 10 mg capsule 10 mg PO DAILY Ozempic 1 mg/dose (4 mg/3 mL) pen injector 1 mg subcut QWEEK ferrous sulfate [iron] 325 mg (65 mg iron) tablet 325 mg PO DAILY sildenafil 100 mg tablet 100 mg PO Q24H PRN (Reason: sexual activity) diclofenac sodium 25 mg tablet,delayed release (DR/EC) 25 mg PO BID PRN (Reason: pain) tacrolimus 0.1 % ointment 1 applic TOPICAL Q12H PRN (Reason: skin irritation) Print Language: Pashto Forms: Portal Instructions
[2024-02-28 08:14] VITALS: BP 148/78; PULSE 68; TEMP 36.9; O2SAT 94
--- NOTE | 2024-02-28 08:27 | CM.NOTE ---
Rounds made with Dr. Jones, pt will discharge to home today, pt will f/u with PCP. Pt also has an appointment with urologist on .
[2024-02-28] MEDS: INSULIN ASPART 300 UNIT/3 ML PEN SUBQ ×2 (08:28→13:10)
[2024-02-28] MEDS: TERAZOSIN HCL 5 MG CAPSULE 10 MG PO (08:53)
[2024-02-28] MEDS: CANAGLIFLOZIN 100 MG TABLET 300 MG PO (08:53)
[2024-02-28] MEDS: CARVEDILOL 6.25 MG TABLET PO (08:54)
[2024-02-28] MEDS: APIXABAN 5 MG TABLET PO (08:54)
[2024-02-28] MEDS: GLIPIZIDE 10 MG TABLET PO (08:54)
[2024-02-28] MEDS: MULTIVITAMIN TABLET 1 TAB PO (08:54)
[2024-02-28] MEDS: INSULIN GLARGINE 300 UNIT/3 ML INSULN.PEN 24 UNIT SQ (08:54)
[2024-02-28] MEDS: AMLODIPINE BESYLATE 5 MG TABLET 10 MG PO (08:54)
[2024-02-28] MEDS: FERROUS SULFATE 325 MG TABLET PO (08:54)
[2024-02-28] MEDS: FUROSEMIDE 20 MG TABLET PO (08:54)
[2024-02-28] MEDS: ALLOPURINOL 300 MG TABLET PO (08:54)
--- NOTE | 2024-02-28 09:59 | CM.NOTE ---
Important Message From [employer] discussed with pt, pt verbalizes understanding and signs paper. Original given to pt and copy placed on pt's chart.
[2024-02-28 11:15] VITALS: O2SAT 96
--- NOTE | 2024-02-28 11:59 | SWNOTE1 ---
SW reviewed therapy notes and pt is independent and no anticipated discharge needs at this time. SW to follow as needed.
[2024-02-28 12:21] VITALS: BP 155/92; PULSE 66; O2SAT 96
[2024-02-28] MEDS: 0.9 % SODIUM CHLORIDE 250 ML 10 ML IV (13:12)
[2024-02-28] MEDS: CEFTRIAXONE 1,000 MG in 0.9 % SODIUM CHLORIDE 50 ML 100 MG IV (13:12)
--- NOTE | 2024-02-29 14:40 | CM.DCFOLLOWU ---
Person spoke with: Roel How are you feeling? Better How is your pain? No pain Did you understand your discharge instructions? Yes Do you have any questions about your discharge instructions? No Were you given any prescriptions at discharge? Yes Were you able to get your prescriptions filled? Yes Do you understand how to take your medications as ordered? Yes Do you have any questions about your follow up appointment and do you plan to keep your follow up appointment? No appointments are scheduled and I plan on going Is there anything else that you would like to discuss? No Questions/Comments/Concerns/Other:
== END 2024-02-28 15:33 | disposition home or self-care (01) | DRG 690 ==
LOC: ER 15:09 → MS 15:11
PROVIDERS: Admitting Provider Family Medicine; Emergency Provider Emergency Medicine; PCP Family Medicine; Visit Provider Family Medicine
DX: N39.0 Urinary tract infection, site not specified (principal); I50.42 Chronic combined systolic (congestive) and diastolic (congestive) heart failure; N18.4 Chronic kidney disease, stage 4 (severe); I13.0 Hypertensive heart and chronic kidney disease with heart failure and stage 1 through stage 4 chronic kidney disease, or unspecified chronic kidney disease; E11.9 Type 2 diabetes mellitus without complications; M10.9 Gout, unspecified; D50.9 Iron deficiency anemia, unspecified; I48.91 Unspecified atrial fibrillation; J44.9 Chronic obstructive pulmonary disease, unspecified; Z79.899 Other long term (current) drug therapy; N32.89 Other specified disorders of bladder; K57.30 Diverticulosis of large intestine without perforation or abscess without bleeding; K21.9 Gastro-esophageal reflux disease without esophagitis; Z79.82 Long term (current) use of aspirin; Z79.85 Long-term (current) use of injectable non-insulin antidiabetic drugs; Z79.84 Long term (current) use of oral hypoglycemic drugs; Z95.0 Presence of cardiac pacemaker
CPT/HCPCS: 36415; 51798; 74176; 80048; 80076; 81001; 82948; 83605; 85025; 87040; 87086; 94761; 96365; 99285; G0378; J0696; J0744

== ENCOUNTER 2024-03-11 01:00 | Observation (INO) | payer MEDICARE, OTHER, SELFPAY ==
[2024-03-11] VITALS (11 sets, daily range): BP systolic 119–149; BP diastolic 57–95; PULSE 66–87; TEMP 36.4–36.9; O2SAT 94–97; BMI 28.4; BMI 29.1
--- OUTSIDE RECORDS SUMMARY | 2024-03-11 01:06 | XMS_ITS | CCD ---
Author Organization [facility] Care Team Providers Care Volcanologist Name Role Phone Andrea Espinoza Unavailable Unavailable Unavailable SHAKA Lange, DR JAMESON Admitting Unavailable SHAKA Lange, DR JAMESON Attending Unavailable CAROL ., DR SANDOVAL Primary Care Unavailable PRASANTH .TAMARA Consulting UnavailKaveh Lange, DR JAMESON Consulting Unavailable MAILE CANO Consulting Unavailable MARIXA ROY Admitting Unavailable MARIXA ROY Attending Unavailable MARIXA ROY Primary Care Unavailable FLORIAN, DR JOE Garcia Consulting Unavailable MARIXA ROY Consulting Unavailable Unavailable Unavailable Afua MARCIAL, Dr. Varghese Lord Attending Unavailable Afua II, Dr. Varghese Lord Referring Unavailable Leana, Dr. Andrea De La Rosa Primary Care Unava ilable Leana, Dr. Andrea De La Rosa Primary Care Unava ilable DeGyann, Dr. Andrea De La Rosa Primary Care Unava ilable Afua II, Dr. Varghese Lord Attending Unavailable Afua MARCIAL, Dr. Varghese Lord Referring Unavailable Leana, Dr. Andrea De La Rosa Primary Care Unava ilable Pedrorozulay DOAndrea Primary Care Provider Leana DOAndrea Primary Care Provider Werner Scruggs Admitting Unavailable Werner Scruggs Attending Unavailable Vini Quinteros Attending Unavailable Mica Car Attending Unavailable Mica Car Attending Unavailable NAPOLEON TA Attending Unavailab Varghese Kearns Admitting Unavailable Varghese Caal Attending Unavailable Varghese Caal Referring Unavailable Barb Loza Admitting UnavailBarb Lang Attending UnavailMica Morrison Admitting Unavailable Mica Car Attending Unavailable Lori Medina MD Primary Care Provider [phone] BLANCA ALONSO Attending Unavailable PETITTGiovanna, BLANCA Zambrano Attending Unavailable DANK JONES Attending Unavailable PETTIM, BLANCA Zambrano Attending Unavailable PETTIM, BLANCA Zambrano Attending Unavailable BOBO BRENNER Attending Unavailable LORI MEDINA Primary Care Unavailable LORI MEDINA Primary Care Unavailable BEATA DEGROOT Attending Unavailable NATA TA Attending Unavailable LueMica MAnisa Referring Unavailable Lue, Mica MAnisa Admitting Unavailable Lue Mica MAnisa Attending Unavailable LueMica MAnisa Attending Unavailable Lue Mica MAnisa Referring Unavailable Lue, Mica MAnisa Admitting Unavailable McGuinnVarghese Admitting Unavailable Varghese Caal Attending Unavailable Varghese Caal Referring Unavailable LueMica MAnisa Referring Unavailable LueMica MAnisa Attending Unavailable DayaneMica MAnisa Referring Unavailable Lue Mica MAnisa Attending Unavailable Anna Sr Attending Unavailable Andrea Espinoza DO Primary Care Provider [phone] VARGHESE CAAL Attending Unavailable VARGHESE CAAL Referring Unavailable ANDREA ESPINOZA Primary Care Unavailable OSVALDO DICKINSON Attending Unavailable VARGHESE CAAL Referring Unavailable ANDREA ESPINOZA Primary Care Unavailable Allergies Allergy Classification Reported Allergen(s) Allergy Type Date of Onset Reaction(s) Facility (9 sources) Enalapril; 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: [enalapril] Drug Allergy 02-10-20 23 Cough [facility] (17 sources) Metoprolol; 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: [metoprolol] Drug Allergy 10-12-19 23 Cough, Unknown -[facility] y [facility] DO Work Phone: (3 sources) Fosinopril; 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: [Monopril] Drug Allergy 03-16-20 14 [facility] (1 source) Metoprolol Drug Allergy 05-16-19 15 [facility] (1 source) strawberry allergenic extract Drug Allergy 05-16-19 15 [facility] (1 source) tomato allergenic extract Drug Allergy 05-16-19 15 [facility] (2 sources) hydroCHLOROthiazide / Metoprolol; 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: [hydrochlorothiazide-m etoprolol] Drug Allergy [facility] (2 sources) [place]; 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: [Strawberries] Food allergy (disorder) [facility] (2 sources) Tomatoes; 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: [Tomatoes] Food allergy (disorder) [facility] (6 sources) Fosinopril; 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: [FOSINOPRIL] Drug Allergy 10-12-19 23 Unknown [facility] Work Phone: Medications Current Medications Medication Drug Class(es) Dates Sig (Normalized) Sig (Original) acetaminophen 325 mg oral capsule (13 sources) take 1 capsule by mouth every six hours as needed acetaminophen (TylenoL) 325 mg capsule Take 1 capsule (325 mg) by mouth every 6 hours if needed. Active acetaminophen (T ylenol 8 Hour) 650 MG ER tablet Tylenol Active allopurinol 300 mg oral tablet (13 sources) Xanthine Oxidase Inhibitor Start: 01-14-2021 take 1 tablet by mouth once daily allopurinol (Zyloprim) 300 mg tablet Take 1 tablet (300 mg) by mouth once daily. 01/14/2021 Active amLODIPine 10 mg oral tablet (13 sources) Dihydropyridine Calcium Channel Howie Start: 01-14-2021 take 1 tablet by mouth once daily amLODIPine (Norvasc) 10 mg tablet Take 1 tablet (10 mg) by mouth once daily. 01/14/2021 Active apixaban 5 mg oral tablet (11 sources) Factor Xa Inhibitor Start: 12-16-2021 take 1 tablet by mouth twice daily apixaban (Eliquis) 5 mg tablet Take 1 tablet (5 mg) by mouth 2 times a day. 12/16/2021 Active apixaban (Eliqui s) 5 MG tablet every 12 (twelve) hours. Active aspirin 81 mg delayed release oral tablet (13 sources) Platelet Aggregation Inhibitor, Nonsteroidal Anti-inflammatory Drug Start: 12-16-2021 take 1 tablet by mouth every week aspirin 81 mg EC tablet Take 1 tablet (81 mg) by mouth 1 (one) time per week. 12/16/2021 Active take 1 tablet by mouth once jose y Aspirin 325 MG Oral Tablet Delayed Release Take 1 tablet daily Quantity: 0 Refills: 0 Ordered: 22-Jan-2021 DO Active CALCIUM CARBONATE-VITAMIN D3 ORAL (3 sources) take 1 tablet by mouth once daily CALCIUM CARBONATE-VITAMIN D3 ORAL Take 1 tablet by mouth once daily. Active take 1 tablet by mouth once jose y CALCIUM CARBONATE-VITAMIN D3 ORAL Take 1 tablet by mouth once daily. 0 Active carvedilol 6.25 mg oral tablet (13 sources) alpha-Adrenergic Howie, beta-Adrenergic Howie Start: 12-17-2020 take 1 tablet by mouth twice daily carvedilol (Coreg) 6.25 mg tablet Take 1 tablet (6.25 mg) by mouth 2 times a day. 12/17/2020 Active carvedilol (Core g) 6.25 MG tablet every 12 (twelve) hours. 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 08/05/2023 Active empagliflozin 25 mg oral tablet (9 sources) Sodium-Glucose Cotransporter 2 Inhibitor take 0.5 tablet by mouth once daily empagliflozin (Jardiance) 25 mg Take 0.5 tablets (12.5 mg) by mouth once daily. Active empagliflozin (J ardiance) 25 MG 1 (one) time each day at the same time. Active ferrous sulfate 325 mg oral tablet (13 sources) take 1 tablet by jai th twice daily ferrous sulfate, 325 mg ferrous sulfate, tablet Take 1 tablet (325 mg) by mouth 2 times a day. Active ferrous sulfate 325 (65 Fe) MG tablet every 12 (twelve) hours. Active furosemide 20 mg oral tablet (13 sources) Loop Diuretic Start: 01-14-2021 take 1 tablet by mouth twice daily furosemide (Lasix) 20 mg tablet Take 1 tablet (20 mg) by mouth 2 times a day. 01/14/2021 Active furosemide (Lasi x) 20 MG tablet every 12 (twelve) hours. Active glipiZIDE 5 mg oral tablet (3 sources) Sulfonylurea take 1 tablet by mouth at dinner glipiZIDE (Glucotrol) 5 mg tablet Take 1 tablet (5 mg) by mouth. 5 mg at breakfast 10 mg at dinner Active hydrALAZINE hydrochloride 50 mg oral tablet (13 sources) Arteriolar Vasodilator Start: 0 take 1 tablet by mouth three times daily hydrALAZINE (Apresoline) 50 mg tablet Take 1 tablet (50 mg) by mouth 3 times a day. 03/20/2020 Active Start: 03-20-2020 take 2 tablets by mo uth three times daily hydrALAZINE HCl - 50 MG Oral Tablet TAKE 2 TABLET 3 times daily Quantity: 0 Refills: 0 Ordered: 20-Mar-2020 DO Start : 20-Mar-2020 Active hydrALAZINE (Apr esoline) 50 MG tablet every 8 (eight) hours. Active insulin glargine 100 unt/ml injectable solution (6 sources) Insulin Analog Start: 10-22-2021 insulin glargi ne (Lantus U-100 Insulin) 100 unit/mL injection Inject under the skin. 10/22/2021 Active INSULIN GLARGINE, 1 UNIT DIAL, SC (5 sources) INSULIN GLARGINE , 1 UNIT DIAL, SC Insulin Glargine Active Multiple Minerals-Vitamins (CALCIUM CITRATE PLUS PO) (5 sources) Multiple Minerals-Vitamins (CALCIUM CITRATE PLUS PO) Calcium Citrate Plus Active Multiple Vitamins-Minerals (MULTIVITAMIN ADULT, MINERALS, PO) (5 sources) Multiple Vitamins-Minerals (MULTIVITAMIN ADULT, MINERALS, PO) Multivitamin Adult Active multivitamin tablet (3 sources) take 1 tablet by mouth once daily multivitamin tablet Take 1 tablet by mouth once daily. Active take 1 tablet by mouth once jose y multivitamin tablet Take 1 tablet by mouth once daily. 0 Active nystatin 100 unt/mg topical powder (5 sources) Polyene Antifungal Start: 08-10-2023 nystatin (Mycostatin) 847506 UNIT/GM powder Indications: Erythema intertrigo Apply to the affected area, twice daily when flared or for maintenance, 30 day supply 60 g 11 08/10/2023 Active omeprazole 20 mg delayed release oral capsule (13 sources) Proton Pump Inhibitor Start: 01-14-2021 take 1 capsule by mouth once daily before mealtime omeprazole (PriLOSEC) [address] capsule Take 1 capsule (20 mg) by mouth once daily in the morning. Take before meals. 01/14/2021 Active omeprazole OTC ( PriLOSEC OTC) 20 MG EC tablet 1 capsule 1 (one) time each day at the same time. Active ruxolitinib (2 sources) Start: 01-17-2024 Ruxolitinib Ph osphate (Opzelura) 1.5 % cream Indications: Other atopic dermatitis Apply to affected areas, twice a day when flared, 30 day supply 60 g 11 01/17/2024 Active 1 mg dose 1.5 ml semaglutide 1.34 mg/ml pen injector (13 sources) inject 1 mg by subcutaneous injection every week semaglutide (Ozempic) 1 mg/dose (2 mg/1.5 mL) pen injector Inject 1 mg under the skin 1 (one) time per week. Active semaglutide (Oze mpic, 0.25 or 0.5 MG/DOSE,) 2 MG/1.5ML solution pen-injector Ozempic Active inject 2 mg by subcu taneous injection every week Ozempic (1 MG/DOSE) 2 MG/1.5ML Subcutaneous Solution Pen-injector Inject once weekly Quantity: 0 Refills: 0 Ordered: 22-Jan-2021 DO Active sildenafil 100 mg oral tablet (2 sources) Phosphodiesterase 5 Inhibitor Start: 06-16-2023 take 1 tablet by mouth every hour sildenafil (Viagra) 100 mg tablet take 1 tablet by mouth 1 hour prior to intercourse if needed 06/16/2023 Active simvastatin 20 mg oral tablet (13 sources) HMG-CoA Reductase Inhibitor Start: 01-14-2021 take 0.5 tablet by mouth once daily at bedtime simvastatin (Zocor) 20 mg tablet Take 0.5 tablets (10 mg) by mouth once daily at bedtime. 01/14/2021 Active simvastatin (Zoc or) 20 MG tablet 1 (one) time each day at the same time. Active spironolactone 25 mg oral tablet (13 sources) Aldosterone Antagonist Start: 01-14-2021 take 1 tablet by mouth once daily spironolactone (Aldactone) 25 mg tablet Take 1 tablet (25 mg) by mouth once daily. 01/14/2021 Active Start: 01-14-2021 take 2 tablets by mo [facility] once daily Spironolactone 25 MG Oral Tablet TAKE 2 TABLET Daily Quantity: 0 Refills: 0 Ordered: 14-Jan-2021 DO Start : 14-Jan-2021 Active tacrolimus 0.001 mg/mg topical ointment (6 sources) Calcineurin Inhibitor Immunosuppressant Start: 08-10-2023 End: 08-09-2024 tacrolimus (Protopic) 0.1 % ointment 2 times a day. 10/08/2023 Active tamsulosin hydrochloride 0.4 mg oral capsule (7 sources) alpha-Adrenergic Howie Start: 05-07-2023 End: 03-01-2024 tamsulosin (Flomax) 0.4 mg 24 hr capsule 1 capsule (0.4 mg) once daily. 05/07/2023 03/01/2024 Discontinued (Therapy completed) Start: 05-07-2023 tamsulosin (Fl omax) 0.4 MG 24 hr capsule 05/07/2023 Active terazosin 10 mg oral capsule (13 sources) alpha-Adrenergic Howie Start: 04-23-2020 take 1 capsule by mouth once daily terazosin (Hytrin) 10 mg capsule Take 1 capsule (10 mg) by mouth once daily. 04/23/2020 Active triamcinolone acetonide 1 mg/ml topical lotion (3 sources) Corticosteroid triamcinolone (Kenalog) 0.1 % lotion Apply topically 3 times a day. Active vitamin b12 1 mg extended release oral tablet (13 sources) Vitamin B12 take 1 tablet by mouth once daily cyanocobalamin, vitamin B-12, (Vitamin B-12) 1,000 mcg tablet extended release Take 1 tablet (1,000 mcg) by mouth once daily. Active Cyanocobalamin ( Vitamin B 12) 100 MCG lozenge Vitamin B 12 Active Completed/Discontinued Medications Medication Drug Class(es) Dates Sig (Normalized) Sig (Original) Calcium (5 sources) Phosphate Binder, Calcium Calcium 600 + D TABS TAKE 1 TABLET DAILY. Quantity: 0 Refills: 0 Ordered: 22-Jan-2021 DO Active clopidogrel 75 mg oral tablet (7 sources) P2Y12 Platelet Inhibitor Start: 03-20-2020 take 1 tablet by mouth once daily Clopidogrel Bisulfate 75 MG Oral Tablet Take 1 tablet daily Quantity: 90 Refills: 3 Ordered: 20-Mar-2020 DO Start : 20-Mar-2020 Active 3 ml insulin aspart, human 100 unt/ml pen injector (2 sources) Insulin Analog Start: 12-16-2020 NovoLOG FlexPen 100 UNIT/ML Subcutaneous Solution Pen-injector Quantity: 5 Refills: 0 Ordered: 16-Dec-2020 DO Start : 16-Dec-2020 Active Multi Vitamin Oral Tablet (5 sources) take 1 tablet by mouth once daily Multi Vitamin Oral Tablet TAKE 1 TABLET DAILY. Quantity: 0 Refills: 0 Ordered: 22-Jan-2021 DO Active Problems Active Problems Problem Classification Problem Date Documented Date Episodic/Chronic Allergic reactions (4 sources) Atopic dermatitis; 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: [Other atopic dermatitis] 01-17-2024 Chronic Cardiac dysrhythmias (20 sources) Sick sinus syndrome; 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: [Sinoatrial node dysfunction] Onset: 02-09-2023 02-10-2023 Chronic Chronic kidney disease (11 sources) Chronic kidney disease stage 4; 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: [Chronic kidney disease, Stage IV (severe)] Onset: 02-09-2023 02-09-2023 Chronic Chronic obstructive pulmonary disease and bronchiectasis (1 source) Chronic obstructive pulmonary disease, unspecified; 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: [COPD UNSPECIFIED] Onset: 06-01-2022 Chronic Conditions associated with dizziness or vertigo (4 sources) Dizziness and giddiness; 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: [DIZZINESS AND GIDDINESS] Onset: 05-28-2022 Episodic Conduction disorders (20 sources) Mobitz type II atrioventricular block; 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: [Mobitz (type) II atrioventricular block] Onset: 02-09-2023 Resolved: 03-01-2024 02-10-2023 Chronic Coronary atherosclerosis and other heart disease (2 sources) Atherosclerotic heart disease of [place] coronary artery without angina pectoris; 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: [Old myocardial infarction] Onset: 06-01-2022 Chronic Diabetes mellitus without complication (9 sources) Diabetes mellitus; 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: [Diabetes mellitus without mention of complication, type II or unspecified type, not stated as uncontrolled] Onset: 06-01-2022 02-09-2023 Chronic Disorders of lipid metabolism (13 sources) Hyperlipidemia; 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: [Other and unspecified hyperlipidemia] Onset: 06-01-2022 02-09-2023 Chronic Esophageal disorders (1 source) Gastro-esophageal reflux disease without esophagitis; 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: [GERD WITHOUT ESOPHAGITIS] Onset: 06-01-2022 Chronic Essential hypertension (14 sources) Essential hypertension; 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: [Unspecified essential hypertension] Onset: 06-01-2022 02-10-2023 Chronic Genitourinary symptoms and ill-defined conditions (2 sources) Blood in urine; 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: [Other retention of urine] Onset: 01-24-2024 Episodic Immunizations and screening for infectious disease (5 sources) Patient encounter status; 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: [Other specified vaccination] Episodic Osteoarthritis (11 sources) Unspecified osteoarthritis, unspecified site; 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: [Arthritis of left knee] Onset: 06-01-2022 10-11-2022 Chronic Other aftercare (1 source) detention (current) use of aspirin; 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: [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 OF 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] Onset: 06-01-2022 Episodic Other aftercare (1 source) Other 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 operator (current) drug therapy; 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: [OTH THERMO CEMENTING FOLDER OPERATOR CURRENT DRUG THERAPY] Onset: 06-01-2022 Episodic Other inflammatory condition of skin (1 source) Psoriasis, unspecified; 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: [PSORIASIS UNSPECIFIED] Onset: 06-01-2022 Chronic Other inflammatory condition of skin (5 sources) Psoriasis vulgaris; 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: [Psoriasis vulgaris] Onset: 10-11-2022 10-11-2022 Chronic Other lower respiratory disease (1 source) Personal history of pneumonia (recurrent); 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: [PERSONAL HX OF PNEUMONIA RECURRENT] Onset: 06-01-2022 Episodic Other lower respiratory disease (2 sources) Snoring; 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: [Snoring] 12-14-2023 Episodic Other non-epithelial cancer of skin (2 sources) History of squamous cell carcinoma of skin; 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: [Personal history of other malignant neoplasm of skin] 01-17-2024 Episodic Other non-traumatic joint disorders (4 sources) Pain in left knee; 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: [PAIN IN LEFT KNEE] Onset: 05-14-2022 Episodic Other nutritional; endocrine; and metabolic disorders (10 sources) Obesity; 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: [Obesity, unspecified] Onset: 12-13-2023 12-13-2023 Chronic Other nutritional; endocrine; and metabolic disorders (1 source) Morbid (severe) obesity due to excess calories; 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: [MORBID SEVERE OBES D/T EXCESS JANAK] Onset: 06-01-2022 Chronic Other nutritional; endocrine; and metabolic disorders (3 sources) Body mass index (BMI) 30.0-30.9, adult; 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: [BODY MASS INDEX BMI 30.0-30.9 ADULT] Onset: 06-01-2022 Chronic Other nutritional; endocrine; and metabolic disorders (4 sources) Body mass index 30+ - obesity; 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: [Body mass index (BMI) 33.0-33.9, adult] Onset: 08-25-2023 08-25-2023 Chronic Other nutritional; endocrine; and metabolic disorders (2 sources) Body mass index (BMI) 33.0-33.9, adult; 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: [Body mass index (BMI) 33.0-33.9, adult] Onset: 08-25-2023 Chronic Other nutritional; endocrine; and metabolic disorders (2 sources) Obesity caused by energy imbalance; 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: [Other obesity due to excess calories] 12-14-2023 Chronic Other skin disorders (2 sources) Seborrheic keratosis; 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: [Other seborrheic keratosis] 01-17-2024 Episodic Other skin disorders (2 sources) Lentiginosis; 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: [Other melanin hyperpigmentation] 01-17-2024 Episodic Becky-; endo-; and myocarditis; cardiomyopathy (except that caused by tuberculosis or sexually transmitted disease) (16 sources) Cardiomyopathy; 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: [Other primary cardiomyopathies] Onset: 02-09-2023 02-10-2023 Chronic Residual codes; unclassified (7 sources) Obstructive sleep apnea syndrome; 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: [Obstructive sleep apnea (adult) (pediatric)] 12-13-2023 Chronic Residual codes; unclassified (7 sources) Hypersomnia; 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: [Hypersomnia, unspecified] Onset: 12-13-2023 12-13-2023 Chronic Residual codes; unclassified (7 sources) Periodic limb movement disorder; 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: [Periodic limb movement disorder] Onset: 12-13-2023 12-13-2023 Chronic Residual codes; unclassified (4 sources) Non-smoker; 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: [Other specified health status] Onset: 02-10-2023 02-10-2023 Episodic Residual codes; unclassified (2 sources) Other specified health status; 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: [Other specified health status] Onset: 02-10-2023 Episodic Screening and history of mental health and substance abuse codes (6 sources) Ex-smoker; 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: [Personal history of tobacco use] Onset: 06-01-2022 Episodic Comment on above: quit , 1 PPD; Unclassified (2 sources) Painful Urination Onset: 01-24-2024 Urinary tract infections (1 source) Acute cystitis with hematuria; 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: [Acute cystitis with hematuria] Onset: 01-24-2024 Episodic Past or Other Problems Problem Classification Problem Date Documented Da te Episodic/Chronic Syncope (8 sources) Syncope; 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: [Syncope and collapse] Onset: 02-09-2023 02-09-2023 Episodic Unclassified (3 sources) Onset: 02-10-2023 Resolved: 03-01-2024 02-10-2023 Results Test Name Value Interpretation Reference Range Facil ity Urology Office/Clinic Noteon 03-02-2024 Urology Office/Clinic Note Urology Office/Clinic Note Chief Complaint ER f/u HPI Staff 78yr old male pt here for ER f/u on 02/19/24. Pt had Rezume done on 02/14/24 w/ Dr. Car. Gomez was removed 02/18/24. The next morning pt had dysuria and hematuria. Urine was sent for culture at ER. Pt also states that he had 3 day stay at [facility] on 02/26/24 for severe UTI & bladder infection, & needed IV ATB. Pt states he was also not emptying completely, no catheter was placed at this time. Previous Dx: urinary retention, BPH w/ urinary obstruction, screening PSA, ED *terazosin 10 mg qd, sildenafil 100mg PRN IPSS - 20, PVR-124mL Dysuria: occasionally continues to have pain with urination, he is still on ATB for this until Incomplete bladder emptying: yes Hematuria: not seen blood since after Rezume Frequency: varies from every 30min, to every 2hrs Urgency: about half the time, sometimes is able to hold urine okay Nocturia: gets up about every 2hrs, last night he had a good night and did not get up as often Stream: good stream most of the time, sometimes has a weak stream which is when he feels the burning Leaking: yes, small amounts; states he notices it when he is sitting on the couch Post void dripping: occasionally Wearing pads/ Depends: denies Urge incontinence: denies Stress incontinence: denies Incontinence without Sensory Awareness: yes occasionally, states he only has small amount of leakage Abdominal pain: denies Flank pain: denies Sexual complaints:_ History of Present Illness staff HPI reviewed and agree. Tests Reviewed: Reviewed UA. Review of Systems PHQ Score Initial Depression Screen Score: 0 SCORE no fever, chills, malaise, myalgia. no rash/lesions. no chest pain, palpitations, or SOB. no abdominal pain, nausea, vomiting. no unilateral calf swelling, redness, pain Physical Exam Vitals & Measurements T: 37 ???C(Oral) HR: 78(Peripheral) RR: 18 BP: 126/74 HT: 70 in HT: 177.8 cm WT: 95.8 kg WT: 211.203 lb BMI: 30.3 General: nontoxic, NAD Mouth: moist mucosa Lungs: normal respiratory effort Cardio: regular rate, good distal perfusion Abdomen: nondistended, no suprapubic distention or tenderness, no CVA tenderness Neurologic: Grossly normal Skin: No rashes or suspicious lesions Assessment/Plan 1. UTI (urinary tract infection) (N39.0: Urinary tract infection, site not specified) [facility] 02/19/24 (day after gomez removal) d/t gross hematuria and dysuria. Pt is on Eliquis. UA showed hgb/leuks so they started him on Keflex x 10d. Cx came back nl elin. No further bleeding since then. Pt went to [facility] 02/26/24 d/t persistent dysuria. Admitted for 3 days. Received IV abx. Dc'd on Cipro x 10d and Levsin. Urine and blood cx both came back neg. Says dysuria has markedly improved but not totally resolved. Has been getting some constipation from the Levsin. Advised he should take Miralax. UA IO today shows trace hgb small leuks. 2. BPH with urinary obstruction (N40.1: Benign prostatic hyperplasia with lower urinary tract symptoms) S/p Rezum by Dr. Vargas 09/16/16. Lasted over 5 yrs per pt. [1] S/p Cystoscopy, TRUS 01/27/2024 - moderate to severe bilobar hypertrophy and elevated bladder neck, calculated prostate volume of 57.7 mL S/p Rezum by KML 02/14/24 Gomez removed 02/18/24. IPSS 20 (13), QoL 5 PVR 124ml Told him to continue Alfuzosin. Ordered: 13989 Measure Post Void residual urine and/or bladder capacity by US- non-imaging Body Mass Index (BMI) documented 3008F Current tobacco non-user 1036F Depression Screening Negative 3352F Influenza immunization status assessed 1030F Medication list documented in medical record 1159F Most recent diastolic blood pressure <80 mm Hg 3078F Patient screen for fall risk: no falls in last year or 1 fall with no injury in last year 1101F Review of all meds by a prescribing practitioner or clinical pharmacist documented in EHR 1160F Systolic BP <130 mm Hg (Most Recent) 3074F Urnls Dip Stick Auto w/o Microscopy POC 33947 3. Anticoagulated (Z79.01: emt intermediate (current) use of anticoagulants) on Eliquis. Follow-up With When Contact Information Keep previously scheduled follow up on 04/06/24 Patient Education Acute Urinary Retention, Male I, Martir Shea, personally scribed for TAMARA Fernandez on 03/02/2024 13:37:23. . Documentation recorded by the deon Shea_ accurately reflects the services(s) I performed and decisions made by me. Authenticated by Nata Ta PA-C on 03/02/2024 17:13:21. Problem List/Past Medical History Ongoing Anticoagulated Arthritis Aspirin long-term use BPH with urinary obstruction CKD (chronic kidney disease) stage 3, GFR 30-59 ml/min Diabetes ED (erectile dysfunction) Emphysema/COPD Epidermal cyst Extreme obesity Former smoker Heart disease Hx of migraine headaches Hypercholesteremia Inco (more content not included)... Normal [facility] Comment on above: Result Comment: Elec tronically Signed By: NATA TA PA-C\Date and Time Signed: 03/02/24 17:13 EST\.br\Electronically Co-Signed By: Martir Shea\Date and Time Co-Signed: 03/02/24 13:38 EST ECG 12 Leadon 03-01-2024 AV paced rhythm [facility] Work Phone: URINE CULTUREon 02-19-2024 Bacteria identified Cx Nom (U) CULTURE RESULTS 10-50,000 ORGANISMS/mL NORMAL UROGENITAL ELIN Normal [facility] Comment on above: Performed By: #### 6 30-4 #### [facility] ([id number]) [address], [address] [place] [address] URN MACROSCOPIC NURon 2023 BILIRUBIN LETHA Negative Normal NEG [facility] Comment on above: Performed By: #### N UM #### [facility] ([id number]) [address] [place] [address] 11456 BLOOD/HGB LETHA Large Abnormal NEG [facility] Comment on above: Performed By: #### N UM #### [facility] ([id number]) [address] [place] [address] 73102 GLUCOSE LETHA >=1000 Abnormal NEG [facility] Comment on above: Performed By: #### N UM #### [facility] ([id number]) [address] [place] [address] 19984 KETONES LETHA Negative Normal NEG [facility] Comment on above: Performed By: #### N UM #### [facility] ([id number]) [address] [place] [address] 65394 LEUKOCYTE ESTERASE LETHA Small Abnormal NEG [facility] Comment on above: Performed By: #### N UM #### [facility] ([id number]) [address] [place] [address] 86020 NITRITE LETHA Negative Normal [facility] Comment on above: Performed By: #### N UM #### [facility] ([id number]) [address] [place] [address] 42204 PH LETHA 6.0 Normal 5.0-8.5 [facility] Comment on above: Performed By: #### N UM #### [facility] ([id number]) [address] [place] [address] 00194 PROTEIN LETHA 100 mg/dL Abnormal NEG [facility] Comment on above: Performed By: #### N UM #### [facility] ([id number]) [address] [place] [address] 81387 SPECIFIC GRAVITY LETHA 1.015 Normal 1.003-1.035 [facility] Comment on above: Performed By: #### N UM #### [facility] ([id number]) [address] [place] [address] 41875 UROBILINOGEN LETHA 0.2 eu/dL Normal <1.[address] [facility] Comment on above: Performed By: #### N UM #### [facility] ([id number]) [address] [place] [address] 93575 Inpatient Patient Summaryon 02-14-2024 Inpatient Patient Summary Inpatient Patient Summary [place] [address] Clinical Summary Person Information Name: LEIGHTON ARCINIEGA Age: 78 Years : 1945 Sex: Male PCP: Lori Medina MD Marital Status: Race: White Ethnicity: Non- or Language: Bahraini Visit Id: Visit Reason: BPH WITH URINARY OBSTRUCTION Speciality: Acuity: Enc Type: Outpatient Med Service: Surgery Arrival: 02/14/2024 09:35:51 Discharge: Dispo Type: Address: Danie TONEY [address] [place] [id number] Provider Notes: Diagnosis: BPH with obstruction/lower urinary tract symptoms; Other obstructive and reflux uropathy Problems Active Obstructive sleep apnea syndrome Paroxysmal atrial fibrillation (02/09/2023) Right bundle branch block AND left anterior fascicular block (02/09/2023) Urinary retention Screening PSA (prostate specific antigen) Incomplete bladder emptying ED (erectile dysfunction) BPH with urinary obstruction Aspirin long-term use Prostate hyperplasia with urinary obstruction Anticoagulated Former smoker Urinary urgency Nocturia Hypercholesteremia Myocardial infarct Hx of migraine headaches Kidney stones Heart disease Diabetes Emphysema/COPD Arthritis Seborrheic keratoses Epidermal cyst SSS (sick sinus syndrome) CKD (chronic kidney disease) stage 3, GFR 30-59 ml/min Extreme obesity Smoking Status: Functional Status: Sensory Deficits: History of Falls: Mobility Assistance Prior to Admission: ADLs: Current Level of Assistance for Self-Care/Mobility: Cognitive Status: Allergies metoprolol (Hypotension) Monopril (Dry cough) Tomatoes (rash) Strawberries (rash) Laboratory or Other Results This Visit (last charted value for your 02/14/2024 visit) No Laboratory or Other Results This Visit Measurements: Height: Weight: Blood Pressure: Not Valued / Not Valued BMI: Procedures No Procedures Documented Immunizations No Immunizations Documented This Visit Final Med List: acetaminophen (Tylenol Extra Strength 500 mg oral tablet) 2 Tablets By Mouth every day as needed for pain. acetaminophen-hydroc odone ([place] 325 mg-5 mg oral tablet) 1 Tablets By Mouth every 6 hours as needed for pain. Take 1 tablet an hour before procedure, post procedure prn. Refills: 0. allopurinol (allopurinol 300 mg Tab) 1 Tablets By Mouth every day. amlodipine (amLODIPine 10 mg Tab) 1 Tablets By Mouth every day. apixaban (Eliquis 5 mg oral tablet) aspirin (aspirin 325 mg Tab) 1 Tablets By Mouth every day. calcium-vitamin D (calcium-vitamin D 600 mg-400 intl units oral tablet) 1 Tablets By Mouth every day. carvedilol 3.125 Milligram By Mouth 2 times a day. clopidogrel (clopidogrel 75 mg Tab) 1 Tablets By Mouth every day. cyanocobalamin (cyanocobalamin 1000 mcg Tab) 2 Tablets By Mouth every day. diclofenac topical (diclofenac topical 1% gel) empagliflozin (Jardiance 25 mg oral tablet) By Mouth once a day (in the morning). ferrous sulfate 325 Milligram By Mouth 2 times a day. furosemide (furosemide 20 mg Tab) 1 Tablets By Mouth 2 times a day. glipiZIDE (glipiZIDE 10 mg Tab) hydrALAZINE (hydrALAZINE 50 mg Tab) 2 Tablets By Mouth 3 times a day. insulin glargine (Lantus) Subcutaneous every day. liraglutide (Victoza) 1.8 Units Subcutaneous every day. multivitamin (Multi Vitamins oral tablet) 1 Tablets By Mouth every day. omeprazole (omeprazole 20 mg Cap-DR) 1 Capsules By Mouth every day. semaglutide (Ozempic (1 mg dose)) 1 Milligram Subcutaneous every week. sildenafil (sildenafil 100 mg Tab) 1 Tablets By Mouth As Directed as needed for erectile dysfunction. Take one tab 1 hour prior to sexual activity.. Refills: 3. simvastatin (simvastatin 20 mg Tab) 0.5 Tablets By Mouth once a day (at bedtime). spironolactone (spironolactone 25 mg Tab) 2 Tablets By Mouth 2 times a day. terazosin (terazosin 10 mg Cap) 1 Capsules By Mouth once a day (at bedtime). Refills: 3. tramadol (traMADOL 50 mg Tab) 1 Tablets By Mouth every 6 hours. Take as needed for pain.. Refills: 0. triamcinolone (Triamcinolone Acetonide) valsartan (valsartan 160 mg Tab) 1 Tablets By Mouth every day. Care Team Members: Attending Physician: Mica Car MD Consulting Physician: Referring Physician: Mica Car MD Follow up: With: Address: When: Mica Car Comments: Office to schedule follow up: Nursing visit for gomez removal Saturday 02/17. Follow up appointment with Dr. Car in 1 month with PVR Type Location Start Finish State NCV Pacemaker (FT) FT.CARDIO 06/01/2024 11:00 AM 06/01/2024 11:15 AM Confirmed Patient Education Information: EU - Rezum Discharge Instructions (CUSTOM) Normal [facility] Main OR Intraoperative Recor don 02-14-2024 Main OR Intraoperative Record Main OR Intraoperative Record IntraOp Document Type FTURO Summary Primary Physician: Mica Car MD Finalized Date/Time: 02/14/24 12:08:58 Pt. Name: LEIGHTON ARCINIEGA D.O.B./Sex: 1945 Male Med Rec #: [id number] Physician: Mica Car MD Financial #: [id number] Pt. Type: O Room/Bed: / Admit/Disch: 02/14/24 09:35:51 - Institution: Case Times FTURO Entry 1 Patient Times In Room 02/14/24 11:45:00 Out Room 02/14/24 12:07:00 Procedure Times Start 02/14/24 11:51:00 Stop 02/14/24 11:58:00 Anesthesia Times Last Modified By: Jocy Corral 02/14/24 12:08:50 General Comments: 18 FR.COUDE CATH PLACED AT THE END OF THE CASE.GRETCHEN HYMAN. Case Attendance FTURO Entry 1 Entry 2 Entry 3 Case Attendee Josep SANDHU, Jocy Perea ROOFING MACHINE TENDERAura Role Performed Surgeon - Primary Seed Potato Cutter - Primary Scrub - Primary Time In 02/14/24 11:45:00 02/14/24 11:45:00 02/14/24 11:45:00 Time Out 02/14/24 12:07:00 02/14/24 12:07:00 02/14/24 12:07:00 Procedure CYSTOSCOPY LOCAL CYSTOSCOPY LOCAL CYSTOSCOPY LOCAL REZUM(.) REZUM(.) REZUM(.) Comments Last Modified By: Jocy Corral Kelsie E Burgderfer, Kelsie E 02/14/24 12:08:51 02/14/24 12:08:51 02/14/24 12:08:51 Surgical Procedures FTURO Entry 1 Procedure Description Procedure CYSTOSCOPY LOCAL REZUM Modifiers . Surgeon Description CYSTO REZUM LOCAL Primary Procedure Yes Primary Surgeon Mica Car MD Start 02/14/24 11:51:00 Stop 02/14/24 11:58:00 Anesthesia Type Local Surgical Service Urology Wound Class 2 - Clean-Contaminated Last Modified By: Jocy Corral 02/14/24 11:58:50 General Case Data FTURO Pre-Care Text: Classifies surgical wound, implements aseptic technique, initiates traffic control Entry 1 Case Information OR URO 1 FT Case Level None Wound Class 2 - Clean-Contaminated Specialty Urology Preop Diagnosis BPH WITH URINARY Postop Same As Preop Yes OBSTRUCTION Postop Diagnosis BPH WITH URINARY Outcomes Met? Yes OBSTRUCTION Last Modified By: Jocy Corral 02/14/24 11:47:54 Post-Care Text: The patient is free from signs and symptoms of infection EU IntraOp - FTURO Pre-Care Text: Implements protective measures prior to operative or invasive procedure, confirms identity before the operative or invasive procedure, verifies operative procedure, surgical site, and laterality Entry 1 EU Perioperative Protocols Procedure(s) CYSTOSCOPY LOCAL Patient Identity Birthday, ID Band JOHANA(.) Verified (select at Check, Patient least 2): Participation Consents / H and P H&P, Surgery/Procedure Operative Site N/A Verified Consent Marking Verified Surgical Site Yes Laterality Verified n/a Verified Procedure Verified Yes Correct Patient Yes Position Verified Availability Equipment, Medication Time Out Mica Car MD, Verified (If Participants Jocy Corral, Applicable) Aura Baumann CST Time Out Complete 02/14/24 11:50:00 Allergies Reviewed? Yes Allergies Reviewed Self/Patient With Body Position High Lithotomy Prep Area PENIS Prep Agents Betasept Skin. Condition Unable to Visualize Description N/A Additional None Specimens Comment N/A Specimens Collected Vitals - EU Blood Pressure 152/74 Pulse 61 bpm Respirations 18 br/min SPO2 97 % EBL 0 I&O - EU Total Intake 0 mL Total Output 0 mL Outcomes Met? Yes Last Modified By: Jocy Corral 02/14/24 11:51:05 Post-Care Text: The patient is free from signs and symptoms of injury caused by extraneous objects Sign Out FTURO Entry 1 Before Patient Leaves OR Nurse verbally Yes Nurse verbally n/a confirms with the confirms with the team the name of team that the procedure(s) instrument, sponge, recorded and needle counts are correct (or N/A) Nurse verbally n/a Nurse verbally Yes confirms with the confirms with the team how the team whether there specimen is labeled are any equipment (including patient problems to be name), if applicable addressed Sign Out Complete 02/14/24 11:58:00 Last Modified By: Jocy Corral 02/14/24 11:58:41 Case Comments Finalized By: Jocy Corral Document Signatures Signed By: Jocy Corral 02/14/24 12:08 Jocy Corral 02/14/24 12:08 Jocy Corral 02/14/24 12:[address] [facility] Main OR Preoperative Recordo n 02-14-2024 Main OR Preoperative Record Main OR Preoperative Record Holding Area Document Type FTURO Summary Primary Physician: Mica Car MD Finalized Date/Time: 02/14/24 11:48:27 Pt. Name: LEIGHTON ARCINIEGA Tyrese Greenfield/Sex: 1945 Male Med Rec #: [id number] Physician: Mica Car MD Financial #: [id number] Pt. Type: O Room/Bed: / Admit/Disch: 02/14/24 09:35:51 - Institution: Case Times Holding FTURO Pre-Care Text: Verifies consent for planned procedure, identifies individual values and wishes concerning care, includes family members in perioperative teaching Secures patient's records' belongings, and valuables, maintains patient's dignity and privacy, and maintains patient confidentiality Entry 1 In Holding 02/14/24 11:00:00 Outcomes Met? Yes Last Modified By: Latha David LPN 02/14/24 11:04:22 Post-Care Text: The patient participates in decisions affecting his or her perioperative plan of care The patient's right to privacy is maintained Surgery Checklist FTURO Entry 1 Patient Birthday, ID Band Procedure History and Physical, Identification: Check, Patient Verification: Surgical Consent, With Participation Patient NPO after Midnight: n/a Personal Items: Glasses Personal Items hearing aides Limitations: up ad buzz Comment: Complaints of Pain: No Skin Integrity Intact, [place], Warm, & Dry Vitals - EU Blood Pressure 152/74 Pulse 61 bpm Respirations 18 br/min SPO2 97 % Additional None RN Reviewed Yes Specimens Collected Last Modified By: Jocy Corral 02/14/24 11:48:23 Finalized By: Jocy Corral Document Signatures Signed By: Latha David LPN 02/14/24 11:05 Jocy Corral 02/14/24 11:48 Jocy Corral 02/14/24 11:48 Normal [facility] Operative Reporton Operative Report Operative Report Patient: LEIGHTON ARCINIEGA Age: 78 years Sex: Male : 1945 Associated Diagnoses: None Author: Mica Car MD Procedure Operative Information Details: Date/ Time: 02/14/2024 12:02:00. Pre-Op Dx: BPH w/ LUTS - N40.1. Post-Op Dx: Same. Anesthesia Type: Local. Procedure: REZUM ablation of the prostate. Complications: None. Risks/Benefits/Infor med Consent: Surgical risks, benefits, details of the procedure have been explained to the patient, Full informed consent has been obtained. Indications: The patient has BPH with LUTS and presents for the REZUM trans-urethral water vapor ablation of the prostate, He understands the risks, benefits, details of this procedure including but not limited to bleeding, infection, continued difficulties urinating, blood in the semen, pain during urination, increased urinary frequency. Intraoperative Information Prepped: The patient is brought back to the operative suite, The patient is placed in the supine position, 10 cc of 2% viscous Xylocaine jelly prior to the catheterization, The bladder is catheterized with a 16 Fr straight catheter, 60 cc of 1% xylocaine solution is instilled followed by 10 cc of 2% viscous Xylocaine jelly, After waiting approximately 20 minutes, he is positioned in the modified dorso-lithotomy position and prepped in the usual fashion, The 30-degree cystoscope lens is placed, The anterior urethra, membranous urethra, and prostatic urethra is visualized. Procedure: The bladder demonstrates no tumor or stones, 5 targeted treatments were delivered to the prostate, staying at least 1 cm from the bladder neck, Each location is treated for 9 seconds, per protocol, 5 treatments were given into the lateral lobes by 1 cm (Right side was treated 3 times due to incomplete cycle from machinery issue), The bladder is again inspected and is free of injury and is clear of blood clots, A Gomez catheter is placed, the balloon inflated, and leg bag attached (18Fr coude). Specimens Removed: None. Devices Implanted: 18Fr coude catheter. Postoperative Information Discharge: The patient tolerates the procedure well and is discharged home in satisfactory condition, Discharge instructions are provided, Follow up in 3-4 days for Gomez removal and voiding trial if urine is clear. Ok to restart Plavix after 24 hrs if urine is clearer. Follow-up in 1 month PVR.. Normal [facility] Comment on above: Result Comment: Elec tronically Signed By: Mica Car MD\.br\Date and Time Signed: 02/14/24 12:03 EST Outpatient Surgery Discharge Instructionon 02-14-2024 Outpatient Surgery Discharge Instruction Outpatient Surgery Discharge Instruction [place] [id number] Patient Discharge Instructions PERSON INFORMATION Name: LEIGHTON ARCINIEGA Date of : 1945 Current Date: 02/14/2024 12:01:37 PHYSICIANS Admitting Physician: Mica Car MD Comment: Discharge Diagnosis: BPH with obstruction/lower urinary tract symptoms; Other obstructive and reflux uropathy LEIGHTON ARCINIEGA has been given the following list of follow-up instructions, prescriptions, and patient education materials: IF UNABLE TO CONTACT YOUR PHYSICIAN AND YOU FEEL IT IS AN EMERGENCY, GO TO THE NEAREST EMERGENCY ROOM OR CALL 911 Follow up: With: Address: When: Mica Car Comments: Office to schedule follow up: Nursing visit for gomez removal Saturday 02/17. Follow up appointment with Dr. Car in 1 month with PVR Type Location Start Finish State NCV Pacemaker (FT) FT.CARDIO 06/01/2024 11:00 AM 06/01/2024 11:15 AM Confirmed Comment: PATIENT EDUCATION INFORMATION Instructions: Rezum Post-Procedure Instructions General Recommendations 1. Drink some extra fluids (water preferred) for the first few days following the procedure. Avoid alcohol and caffeine until your irritative symptoms have resolved. 2. Take the medication as prescribed by your doctor. Usually this will include an antibiotic, pain medication or antispasmodic if needed. 3. Avoid lifting heavy objects (>10 lbs) or excessive straining as this may cause bleeding in the first week after surgery. 4. Catheter instructions: ??? You will go home with a Gomez catheter attached to a catheter bag. ??? Follow your doctor???s instructions. 5. You may resume your normal diet. Common Treatment Related Symptoms The following are common treatment related signs and symptoms that you may experience after the procedure. They may also occur following removal of the catheter. After the procedure, your general urinary symptoms may temporarily worsen and then gradually improve. 1. Blood in the Urine. It is common to see some blood in the urine for 1 to 2 weeks. Limit any physical activities and drink some extra water to flush the bladder but you do not need to drink excessively or be alarmed. If you think the bleeding is excessive or you are having trouble urinating, call the number below. 2. Painful Urination. It is common to have some pain or burning with urination for 1 to 2 weeks. It should gradually improve. If it persists or starts to worsen, call the number below. 3. Slow Urinary Stream. After the procedure, swelling of the prostate occurs which may or may not make the urinary stream weaker. This should gradually improve. If you are having a lot of difficulty trying to urinate or cannot urinate, call your doctor. 4. Urinary Urgency, Frequency or Leakage. You may experience frequency and/or a strong urge to urinate while the prostate heals. Sometimes, you may find the urge is so strong that it is difficult to hold your urine and leakage can occur. 6. Blood in the Semen. This may occur up to several weeks following the procedure. The semen may have red or a ???reynold??? color. This condition will almost always resolve without any treatment. You should not be alarmed. Frequently Asked Questions Your Treating Doctor may override these recommendations. You should follow his/her instructions. 1. When can I resume normal physical activities? You may resume your daily activities immediately. You should limit vigorous workouts such as bike riding, running, treadmills, and heavy weight lifting for the first week. If you experience any bleeding, limit your activities and increase your water intake. 2. When can I resume sexual activity? In general, once you do not see any blood in the urine you may resume sexual activity. You may experience blood in the semen as described in the ???Common Treatment Related Symptoms??? section. 3. When can I resume my medications including blood thinners? In general, you should continue with any of your regular medications but check with your doctor. Typically, you can resume any blood thinners immediately post procedure but check with your doctor. 4. When can I go back to work? In general, you can return to work the following day. If you are taking pain medication (narcotics) or have a physical job (lifting, construction work, etc.), check with your doctor. 5. When can I have an alcoholic beverage? You should avoid any alcohol until your irritative symptoms have resolved, typically 1-2 weeks. Alcohol is a bladder irritant and can worsen your symptoms. You should also follow the instructions regarding alcohol intake on the labels of your prescription medication. Contact your Doctor Immediately If you experience: 1. Fever (oral temperature ? 101?F), chills ??? may be signs of an infection. 2. Inability to urinate. 3. Foul smelling or cloudy urine. 4. While there (more content not included)... Normal [facility] Ambulatory Visit Summaryon 1 04-01-2023 Ambulatory Visit Summary Ambulatory Visit Summary LEIGHTON ARCINIEGA :1945 Visit Date:01/31/2024 Ambulatory Visit Instructions Your Diagnosis Urinary retention BPH with urinary obstruction Screening PSA (prostate specific antigen) ED (erectile dysfunction) Your Care Team Attending Physician - MICHAEL Sr APRN, Anna Herrera Primary Care Physician - Lori Medina MD This Is Your Medications List Contact prescribing physician if questions or concerns acetaminophen (Tylenol Extra Strength 500 mg oral tablet) acetaminophen-hydroc odone ([place] 325 mg-5 mg oral tablet) allopurinol (allopurinol 300 mg Tab) amlodipine (amLODIPine 10 mg Tab) apixaban (Eliquis 5 mg oral tablet) aspirin (aspirin 325 mg Tab) calcium-vitamin D (calcium-vitamin D 600 mg-400 intl units oral tablet) carvedilol clopidogrel (clopidogrel 75 mg Tab) cyanocobalamin (cyanocobalamin 1000 mcg Tab) diclofenac topical (diclofenac topical 1% gel) empagliflozin (Jardiance 25 mg oral tablet) ferrous sulfate furosemide (furosemide 20 mg Tab) glipiZIDE (glipiZIDE 10 mg Tab) hydrALAZINE (hydrALAZINE 50 mg Tab) insulin glargine (Lantus) liraglutide (Victoza) multivitamin (Multi Vitamins oral tablet) omeprazole (omeprazole 20 mg Cap-DR) semaglutide (Ozempic (1 mg dose)) sildenafil (sildenafil 100 mg Tab) simvastatin (simvastatin 20 mg Tab) spironolactone (spironolactone 25 mg Tab) terazosin (terazosin 10 mg Cap) tramadol (traMADOL 50 mg Tab) triamcinolone (Triamcinolone Acetonide) valsartan (valsartan 160 mg Tab) Procedures Performed Pacemaker (08/15/2016), Arthroscopy of knee, Colonoscopy, Ring finger Amputation, Tonsillectomy. Discharge Vitals Heart Rate (Peripheral) 64 Respiratory Rate 16 Blood Pressure 135/60 Height 177 cm Height 70 in Weight 101 kg Weight 222.667 lb BMI 32.24 What to do next Scheduled Follow-Up Appointments Wednesday 11:30 AM EST Where: [facility] Wednesday 10:30 AM EST Where: [facility] 2024 11:00 AM EDT Where: [facility] You Need to Schedule the Following Appointments Follow Up with Josep SANDHU, MIGUELITO Richard, URO When: Comments: Johana 02/14/24 Where: Medications What How Much When Instructions Unchanged acetaminophen (Tylenol Extra Strength 500 mg oral tablet) 2 Tablets By Mouth Every day as needed for for pain Contact prescribing physician if questions or concerns Unchanged acetaminophen-hydroc odone ([place] 325 mg-5 mg oral tablet) 1 Tablets By Mouth Every 6 hours as needed for for pain Take 1 tablet an hour before procedure, post procedure prn Contact prescribing physician if questions or concerns Unchanged allopurinol (allopurinol 300 mg Tab) 1 Tablets By Mouth Every day Contact prescribing physician if questions or concerns Unchanged amlodipine (amLODIPine 10 mg Tab) 1 Tablets By Mouth Every day Contact prescribing physician if questions or concerns Unchanged apixaban (Eliquis 5 mg oral tablet) Contact prescribing physician if questions or concerns Unchanged aspirin (aspirin 325 mg Tab) 1 Tablets By Mouth Every day Contact prescribing physician if questions or concerns Unchanged calcium-vitamin D (calcium-vitamin D 600 mg-400 intl units oral tablet) 1 Tablets By Mouth Every day Contact prescribing physician if questions or concerns Unchanged carvedilol 3.125 Milligram By Mouth 2 times a day Contact prescribing physician if questions or concerns Unchanged clopidogrel (clopidogrel 75 mg Tab) 1 Tablets By Mouth Every day Contact prescribing physician if questions or concerns Unchanged cyanocobalamin (cyanocobalamin 1000 mcg Tab) 2 Tablets By Mouth Every day Contact prescribing physician if questions or concerns Unchanged diclofenac topical (diclofenac topical 1% gel) Contact prescribing physician if questions or concerns Unchanged empagliflozin (Jardiance 25 mg oral tablet) By Mouth Once a day (in the morning) Contact prescribing physician if questions or concerns Unchanged ferrous sulfate 325 Milligram By Mouth 2 times a day Contact prescribing physician if questions or concerns Unchanged furosemide (furosemide 20 mg Tab) 1 Tablets By Mouth 2 times a day Contact prescribing physician if questions or concerns Unchanged glipiZIDE (glipiZIDE 10 mg Tab) Contact prescribing physician if questions or concerns Unchanged hydrALAZINE (hydrALAZINE 50 mg Tab) 2 Tablets By Mouth 3 times a day Contact prescribing physician if questions or concerns Unchanged insulin glargine (Lantus) Subcutaneous Every day Contact prescribing physician if questions or concerns Unchanged liraglutide (Victoza) 1.8 Units Subcutaneous Every day Contact prescribing physician if questions or concerns Unchanged multivitamin (Multi Vitamins oral tablet) 1 Tablets By Mouth Every day Contact prescribing physician if questions or concerns Unchanged omeprazole (omep (more content not included)... Normal [facility] Urology Office/Clinic Noteon 01-31-2024 Urology Office/Clinic Note Urology Office/Clinic Note Chief Complaint [facility] ER follow up HPI Staff 78 year old male patient presents today for a [facility] ER follow up 01/23/24. Pt has gomez. Urine cx 01/24/24- negative. Previous Dx: BPH with urinary obstruction, incomplete bladder emptying, ED, screening PSA. S/p Rezum by Dr. Vargas 09/16/16. *Tamsulosin 0.4 mg qd. Denies hematuria, denies dysuria, denies abdominal/flank pain. When he went to ER had some retention going on , a weak stream and some dysuria. History of Present Illness I have reviewed and verified the staff HPI to be accurate for this encounter. Portions of this record may have been created with voice recognition artificial intelligence software, specifically [employer]), [employer] and or [employer]. Substitutions may have occurred due to the inherent limitations of voice recognition and artificial intelligence software. Review of Systems PHQ Score Initial Depression Screen Score: 0 SCORE Physical Exam Vitals & Measurements HR: 64(Peripheral) RR: 16 BP: 135/60 HT: 70 in HT: 177 cm WT: 101 kg WT: 222.667 lb BMI: 32.24 General: Well developed, well nourished, in no acute distress. Assessment/Plan KML pt 1. Urinary retention (R33.9: Retention of urine, unspecified) [facility] 01/24/2024 with dysuria and difficulty urinating. Patient unable to urinate for 30 to 45 minutes while in ER, bladder scan >280 mL, Gomez placed. Discharged with Gomez and Keflex for UTI. Urine culture 01/24/2024 negative Discussed ER visit and urine culture patient. He denies any symptoms of UTI at this time. Feels he is overall doing better at this time. Given his low degree of retention, we discussed Gomez removal today. Fill and pull performed in office today. 110 mL instilled, patient able to urinate 100 mL continue terazosin 10 mg daily Increase fluid intake, avoid bladder irritants ER for fever, NV, severe flank pain, inability to urinate made KML aware of situation, OK to proceed w/ Rezum as scheduled Ordered: Body Mass Index (BMI) documented 3008F Current tobacco non-user 1036F Depression Screening Negative 3352F Influenza immunization status assessed 1030F Medication list documented in medical record 1159F Most recent diastolic blood pressure <80 mm Hg 3078F Patient screen for fall risk: no falls in last year or 1 fall with no injury in last year 1101F Review of all meds by a prescribing practitioner or clinical pharmacist documented in EHR 1160F Systolic BP 130-139 mm Hg (Most Recent) 3075F 2. BPH with urinary obstruction (N40.1: Benign prostatic hyperplasia with lower urinary tract symptoms) S/p Rezum by Dr. Vargas 09/16/16. Lasted over 5 yrs per pt. [1] IPSS 13 (15), QoL 5 Patient currently taking terazosin 10 mg daily. s/p cystoscopy, TRUS 01/27/2024 - unobstructed prostate, moderate to severe bilobar hypertrophy and elevated bladder neck, calculated prostate volume of 57.7 mL -Scheduled for repeat Rezum w/ KML 02/14/24 Ordered: Body Mass Index (BMI) documented 3008F Current tobacco non-user 1036F Depression Screening Negative 3352F Influenza immunization status assessed 1030F Medication list documented in medical record 1159F Most recent diastolic blood pressure <80 mm Hg 3078F Patient screen for fall risk: no falls in last year or 1 fall with no injury in last year 1101F Review of all meds by a prescribing practitioner or clinical pharmacist documented in EHR 1160F Systolic BP 130-139 mm Hg (Most Recent) 3075F 3. Screening PSA (prostate specific antigen) (Z12.5: Encounter for screening for malignant neoplasm of prostate) PSA 02/10/21 - 1.58 01/22/22 - 1.17 04/22/23 - 1.60 Previously discussed stopping PSA checks due to advancing age and PSA stability but pt preferred continued monitoring as he said he would be willing to under a biopsy if necessary [2] -Due Apr 2024 Ordered: Body Mass Index (BMI) documented 3008F Current tobacco non-user 1036F Depression Screening Negative 3352F Influenza immunization status assessed 1030F Medication list documented in medical record 1159F Most recent diastolic blood pressure <80 mm Hg 3078F Patient screen for fall risk: no falls in last year or 1 fall with no injury in last year 1101F Review of all meds by a prescribing practitioner or clinical pharmacist documented in EHR 1160F Systolic BP 130-139 mm Hg (Most Recent) 3075F 4. ED (erectile dysfunction) (N52.9: Male erectile dysfunction, unspecified) Hx of [place] in 2002. Has pacemaker in place. Denies taking nitro products. [3] AMANDA (5) Sildenafil 100 mg as needed, without improvement of his erections. Previously expressed that he is not interested in CIC or penile implant. -Not addressed at this visit Ordered: Body Mass Index (BMI) documented 3008F Current tobacco non-user 1036F Depression Screening Negative 3352F Influenza immunization status assessed 1030F Medication list documented in medic (more content not included)... Normal [facility] Comment on above: Result Comment: Elec tronically Signed By: MICHAEL Sr APRN, [place] X\.br\Date and Time Signed: 01/31/24 16:26 EST URINE CULTUREon 01-24-2024 Bacteria identified Cx Nom (U) CULTURE RESULTS NO GROWTH AT <1000 CFU/mL Normal [facility] Comment on above: Performed By: #### 6 30-4 #### [facility] ([id number]) [address] [place] [address], [address] [place] [address] URN MACROSCOPIC NURon 2023 BILIRUBIN LETHA Negative Normal NEG [facility] Comment on above: Performed By: #### N UM #### [facility] ([id number]) [address] [place] [address]85 BLOOD/HGB LETHA Trace Abnormal NEG [facility] Comment on above: Performed By: #### N UM #### [facility] ([id number]) [address] [place] [address] 26650 GLUCOSE LETHA >=1000 Abnormal NEG [facility] Comment on above: Performed By: #### N UM #### [facility] ([id number]) [address] [place] [address] 32295 KETONES LETHA Negative Normal NEG [facility] Comment on above: Performed By: #### N UM #### [facility] ([id number]) [address] [place] [address] 42624 LEUKOCYTE ESTERASE LETHA Large Abnormal NEG [facility] Comment on above: Performed By: #### N UM #### [facility] ([id number]) [address] [place] [address]25 NITRITE LETHA Negative Normal NEG [facility] Comment on above: Performed By: #### N UM #### [facility] ([id number]) [address] [place] [address]4615 PH LETHA 6.0 Normal 5.0-8.5 [facility] Comment on above: Performed By: #### N UM #### [facility] ([id number]) [address] [place] [address] 09956 PROTEIN LETHA 100 mg/dL Abnormal NEG [facility] Comment on above: Performed By: #### N UM #### [facility] ([id number]) [address] [facility], [place] [address] SPECIFIC GRAVITY LETHA 1.015 Normal 1.003-1.035 [facility] Comment on above: Performed By: #### N UM #### [facility] ([id number]) [address] [place] [address] UROBILINOGEN LETHA 0.2 eu/dL Normal <1.[address] [facility] Comment on above: Performed By: #### N UM #### [facility] ([id number]) [address] [place] [address] Inpatient Patient Summaryon 12-27-2023 Inpatient Patient Summary Inpatient Patient Summary [address] [address] Clinical Summary Person Information Name: LEIGHTON ARCINIEGA Age: 78 Years : 1945 Sex: Male PCP: Lori Medina MD Marital Status: Race: White Ethnicity: Non- or Language: Bahraini Visit Id: Visit Reason: BPH WITH URINARY OBSTRUCTION Speciality: Acuity: Enc Type: Outpatient Med Service: Surgery Arrival: 12/27/2023 09:33:05 Discharge: Dispo Type: Address: [address] [place] [address] [address] TONEY [address] [place] [id number] Provider Notes: Diagnosis: Anticoagulated; Other obstructive and reflux uropathy; Prostate hyperplasia with urinary obstruction Problems Active Screening PSA (prostate specific antigen) Incomplete bladder emptying ED (erectile dysfunction) BPH with urinary obstruction Aspirin long-term use Prostate hyperplasia with urinary obstruction Anticoagulated Former smoker Urinary urgency Nocturia Hypercholesteremia Myocardial infarct Hx of migraine headaches Kidney stones Heart disease Diabetes Emphysema/COPD Arthritis Seborrheic keratoses Epidermal cyst SSS (sick sinus syndrome) CKD (chronic kidney disease) stage 3, GFR 30-59 ml/min Extreme obesity Smoking Status: Functional Status: Sensory Deficits: History of Falls: Mobility Assistance Prior to Admission: ADLs: Current Level of Assistance for Self-Care/Mobility: Cognitive Status: Allergies metoprolol (Hypotension) Monopril (Dry cough) Tomatoes (rash) Strawberries (rash) Laboratory or Other Results This Visit (last charted value for your 12/27/2023 visit) No Laboratory or Other Results This Visit Measurements: Height: 177 cm Weight: 104 kg Blood Pressure: Not Valued / Not Valued BMI: 33.2 kg/m2 Procedures No Procedures Documented Immunizations No Immunizations Documented This Visit Final Med List: acetaminophen (Tylenol Extra Strength 500 mg oral tablet) 2 Tablets By Mouth every day as needed for pain. acetaminophen-hydroc odone ([place] 325 mg-5 mg oral tablet) 1 Tablets By Mouth every 6 hours as needed for pain. Take 1 tablet an hour before procedure, post procedure prn. Refills: 0. allopurinol (allopurinol 300 mg Tab) 1 Tablets By Mouth every day. amlodipine (amLODIPine 10 mg Tab) 1 Tablets By Mouth every day. apixaban (Eliquis 5 mg oral tablet) aspirin (aspirin 325 mg Tab) 1 Tablets By Mouth every day. calcium-vitamin D (calcium-vitamin D 600 mg-400 intl units oral tablet) 1 Tablets By Mouth every day. carvedilol 3.125 Milligram By Mouth 2 times a day. ciprofloxacin (Cipro 500 mg Tab) 1 Tablets By Mouth every 12 hours for 3 Days. Start day prior to procedure. Refills: 0. clopidogrel (clopidogrel 75 mg Tab) 1 Tablets By Mouth every day. cyanocobalamin (cyanocobalamin 1000 mcg Tab) 2 Tablets By Mouth every day. diclofenac topical (diclofenac topical 1% gel) empagliflozin (Jardiance 25 mg oral tablet) By Mouth once a day (in the morning). ferrous sulfate 325 Milligram By Mouth 2 times a day. furosemide (furosemide 20 mg Tab) 1 Tablets By Mouth 2 times a day. glipiZIDE (glipiZIDE 10 mg Tab) hydrALAZINE (hydrALAZINE 50 mg Tab) 2 Tablets By Mouth 3 times a day. insulin glargine (Lantus) Subcutaneous every day. liraglutide (Victoza) 1.8 Units Subcutaneous every day. multivitamin (Multi Vitamins oral tablet) 1 Tablets By Mouth every day. omeprazole (omeprazole 20 mg Cap-DR) 1 Capsules By Mouth every day. semaglutide (Ozempic (1 mg dose)) 1 Milligram Subcutaneous every week. sildenafil (sildenafil 100 mg Tab) 1 Tablets By Mouth As Directed as needed for erectile dysfunction. Take one tab 1 hour prior to sexual activity.. Refills: 3. simvastatin (simvastatin 20 mg Tab) 0.5 Tablets By Mouth once a day (at bedtime). spironolactone (spironolactone 25 mg Tab) 2 Tablets By Mouth 2 times a day. terazosin (terazosin 10 mg Cap) 1 Capsules By Mouth once a day (at bedtime). Refills: 3. tramadol (traMADOL 50 mg Tab) 1 Tablets By Mouth every 6 hours. Take as needed for pain.. Refills: 0. triamcinolone (Triamcinolone Acetonide) valsartan (valsartan 160 mg Tab) 1 Tablets By Mouth every day. Care Team Members: Attending Physician: Mica Car MD Consulting Physician: Referring Physician: Mica Car MD Follow up: With: Address: When: Mica Car Comments: Office to schedule [facility] Type Location Start Finish State NCV Pacemaker (FT) FT.CARDIO 06/01/2024 11:00 AM 06/01/2024 11:15 AM Confirmed Patient Education Information: EU - Cystoscopy Discharge Instructions (CUSTOM) [facility] Main OR Intraoperative Recor don 12-27-2023 Main OR Intraoperative Record Main OR Intraoperative Record IntraOp Document Type FTURO Summary Primary Physician: Mica Car MD Finalized Date/Time: 12/27/23 11:42:38 Pt. Name: LEIGHTON ARCINIEGA/Sex: 1945 Male Med Rec #: [id number] Physician: Mica Car MD Financial #: [id number] Pt. Type: O Room/Bed: / Admit/Disch: 12/27/23 09:33:05 - Institution: Case Times FTURO Entry 1 Patient Times In Room 12/27/23 11:23:00 Out Room 12/27/23 11:42:00 Procedure Times Start 12/27/23 11:29:00 Stop 12/27/23 11:34:00 Anesthesia Times Last Modified By: Tunde GODINEZ, Ankita Willett 12/27/23 11:36:34 General Comments: CYSTOSCOPY ENDED AT 1131. TRUS STARTED AT 1132 -V. GRETCHEN GRAY Case Attendance FTURO Entry 1 Entry 2 Entry 3 Case Attendee Josep SANDHU, Mica Gray RN, Micky Vargas Role Performed Surgeon - Primary Seed Potato Cutter - Primary Scrub - Primary Time In 12/27/23 11:23:00 12/27/23 11:23:00 12/27/23 11:23:00 Time Out 12/27/23 11:42:00 12/27/23 11:42:00 12/27/23 11:42:00 Procedure PROSTATE TRANSRECTAL PROSTATE TRANSRECTAL PROSTATE TRANSRECTAL ULTRASOUND WITH BIO(.) ULTRASOUND WITH BIO(.) ULTRASOUND WITH BIO(.) Comments Last Modified By: Tunde GODINEZ, Ankita Gray RN, Ankita Gray RN, Ankita Willett 12/27/23 Shelly Willett 12/27/23 Shelly P 12/27/23 11:36:37 11:36:37 11:36:37 Surgical Procedures FTURO Entry 1 Procedure Description Procedure PROSTATE TRANSRECTAL Modifiers . ULTRASOUND WITH BIOPSY Surgeon Description CYSTOSCOPY, TRUS FOR PROSTATE SIZING Primary Procedure Yes Primary Surgeon Josep SANDHU, Mica Johns Start 12/27/23 11:29:00 Stop 12/27/23 11:34:00 Anesthesia Type Local Surgical Service Urology Wound Class 2 - Clean-Contaminated Last Modified By: Tunde GODINEZ, Ankita Willett 12/27/23 11:36:35 General Case Data FTURO Pre-Care Text: Classifies surgical wound, implements aseptic technique, initiates traffic control Entry 1 Case Information OR URO 1 FT Case Level None Wound Class 2 - Clean-Contaminated Specialty Urology Preop Diagnosis BPH WITH URINARY Postop Same As Preop Yes OBSTRUCTION Postop Diagnosis BPH WITH URINARY Outcomes Met? Yes OBSTRUCTION Last Modified By: Tunde GODINEZ, Ankita Willett 12/27/23 11:23:51 Post-Care Text: The patient is free from signs and symptoms of infection EU IntraOp - FTURO Pre-Care Text: Implements protective measures prior to operative or invasive procedure, confirms identity before the operative or invasive procedure, verifies operative procedure, surgical site, and laterality Entry 1 EU Perioperative Protocols Procedure(s) PROSTATE TRANSRECTAL Patient Identity Birthday, ID Band Check ULTRASOUND WITH BIO(.) Verified (select at least 2): Consents / H and P H&P, Surgery/Procedure Operative Site N/A Verified Consent Marking Verified Surgical Site Yes Laterality Verified n/a Verified Procedure Verified Yes Correct Patient Yes Position Verified Availability Equipment, Medication Time Out Mica Car MD, Verified (If Participants Tunde GODINEZ, Ankita Applicable) Hernan Márquez Kendall R Time Out Complete 12/27/23 11:28:00 Allergies Reviewed? Yes Allergies Reviewed Self/Patient With Body Position Supine Prep Area PENIS AND RECTAL AREA Prep Agents Betasept Skin. Condition Unable to Visualize Description PARTIALLY CLOTHED AND DRAPED Additional None Specimens Collected Vitals - EU Blood Pressure 122/75 Pulse 81 bpm Respirations 18 br/min SPO2 96 % I&O - EU Outcomes Met? Yes Last Modified By: Ankita Gray RN 12/27/23 11:29:43 Post-Care Text: The patient is free from signs and symptoms of injury caused by extraneous objects Sign Out FTURO Entry 1 Before Patient Leaves OR Nurse verbally Yes Nurse verbally Yes confirms with the confirms with the team the name of team that the procedure(s) instrument, sponge, recorded and needle counts are correct (or N/A) Nurse verbally n/a Nurse verbally n/a confirms with the confirms with the team how the team whether there specimen is labeled are any equipment (including patient problems to be name), if applicable addressed Sign Out Complete 12/27/23 11:35:00 Last Modified By: Ankita Gray RN 12/27/23 11:35:44 Case Comments Finalized By: Ankita Gray RN Document Signatures Signed By: Ankita Gray RN 12/27/23 11:42 Normal [facility] Main OR Preoperative Recordo n 12-27-2023 Main OR Preoperative Record Main OR Preoperative Record Holding Area Document Type FTURO Summary Primary Physician: Mica Car MD Finalized Date/Time: 12/27/23 11:02:34 Pt. Name: LEIGHTON ARCINIEGA D.O.B./Sex: 1945 Male Med Rec #: [id number] Physician: Mica Car MD Financial #: [id number] Pt. Type: O Room/Bed: / Admit/Disch: 12/27/23 09:33:05 - Institution: Case Times Holding FTURO Pre-Care Text: Verifies consent for planned procedure, identifies individual values and wishes concerning care, includes family members in perioperative teaching Secures patient's records' belongings, and valuables, maintains patient's dignity and privacy, and maintains patient confidentiality Entry 1 In Holding 12/27/23 10:50:00 Outcomes Met? Yes Last Modified By: Latha David LPN 12/27/23 10:59:56 Post-Care Text: The patient participates in decisions affecting his or her perioperative plan of care The patient's right to privacy is maintained Surgery Checklist FTURO Entry 1 Patient Birthday, ID Band Procedure History and Physical, Identification: Check, Patient Verification: Surgical Consent, With Participation Patient NPO after Midnight: No Personal Items: Glasses Limitations: up ad buzz Complaints of Pain: No Skin Integrity Intact, [place], Warm, & Dry Vitals - EU Blood Pressure 122/75 Pulse 81 bpm Respirations 18 br/min SPO2 96 % Additional None Specimens Collected Last Modified By: Latha David LPN 12/27/23 11:01:13 Finalized By: Latha David LPN Document Signatures Signed By: Latha David LPN 12/27/23 11:01 Latha David LPN 12/27/23 11:02 Normal [facility] Operative Reporton Operative Report Operative Report Patient: LEIGHTON ARCINIEGA Age: 78 years Sex: Male : 1945 Associated Diagnoses: None Author: Mica Car MD Procedure Operative Information Details: Date/ Time: 12/27/2023 12:10:00. Pre-Op Dx: BPH w/ LUTS - N40.1. Post-Op Dx: Feeling of incomplete bladder emptying ([id number] R39.14, Working, Medical), Anticoagulated ([id number] Z79.01, Discharge, Medical), Same. Anesthesia Type: Local. Procedure: Local Cystoscopy. Complications: None. Risks/Benefits/Infor med Consent: Surgical risks, benefits, details of the procedure have been explained to the patient, Full informed consent has been obtained. Intraoperative Information Prepped: Patient is brought back to the endoscopy suite, Patient is placed in supine position, Patient prepped in the usual fashion with Betadine solution, 2% Xylocaine Jelly is placed per Urethra, After waiting several minutes the Cystoscope is introduced. The Urethra is: Normal. The Prostatic Urethra is: Unobstructed, Moderate to severe bilobar hypertrophy elevated bladder neck, no intravesical median lobe but mild global mass effect to bladder. The Bladder is: Normal, Trabeculated Mild (1), No bladder tumors, lesions, stones or foreign bodies.. The ureteral orifices: Show efflux of clear urine. Devices Implanted: None. Removal: Cystoscope is removed, The patient tolerated it well. The patient was placed in a lateral decubitus position with the left side down. Lidocaine gel was inserted per rectum. A transrectal ultrasound probe was inserted without difficulty. The prostate was measured in three dimensions with a calculated volume of 57.7mL. This included width a 5.5cm, height of 3.8 cm, and length of 5.3 cm. There were no significant hypo or hyperechoic lesions within the prostate. The seminal vesicles were visualized bilaterally. These were normal in size, shape and echotexture. The probe was removed and the patient tolerated the procedure well.. Postoperative Information Discharge: Follow up arranged, Discussed risk and benefits of management options including medical optimization (including adding finasteride finasteride) versus procedure (candidate for UroLift, Rezum and TURP). Patient underwent Rezum [place] [address] Vargas. Tolerated well and would like to undergo this again understanding this may recur in the future. Patient was not on blood thinners at that time, but now is. Discussed elevated risk of bleeding especially a few weeks after procedure when tissue is removed sloughs off. -Will schedule Rezum under local. Will send antibiotics and Valium prior to procedure. Will need driver service technician. -Will need blood thinners held prior to procedure. Elevated risk of bleeding discussed. -Patient did better on terazosin. Will DC tamsulosin and restart terazosin 10 mg daily. Medication sent to [place] in [place].. Normal [facility] Comment on above: Result Comment: Elec tronically Signed By: Mica Car MD\.br\Date and Time Signed: 12/27/23 12:14 EDT Outpatient Surgery Discharge Instructionon 12-27-2023 Outpatient Surgery Discharge Instruction Outpatient Surgery Discharge Instruction [place] [id number] Patient Discharge Instructions PERSON INFORMATION Name: LEIGHTON ARCINIEGA Date of : 1945 Current Date: 12/27/2023 12:34:04 PHYSICIANS Admitting Physician: Mica Car MD Comment: Discharge Diagnosis: Anticoagulated; Other obstructive and reflux uropathy; Prostate hyperplasia with urinary obstruction SUZE LEIGHTON Tyrese has been given the following list of follow-up instructions, prescriptions, and patient education materials: IF UNABLE TO CONTACT YOUR PHYSICIAN AND YOU FEEL IT IS AN EMERGENCY, GO TO THE NEAREST EMERGENCY ROOM OR CALL 911 Follow up: With: Address: When: Mica Car Comments: Office to schedule [facility] Location Start [facility] Pacemaker (FT) FT.CARDIO 06/01/2024 11:00 AM 06/01/2024 11:15 AM Confirmed Comment: PATIENT EDUCATION INFORMATION Instructions: Cystoscopy ? Voiding after the procedure: there may be some pain, burning, urgency, frequency and blood tinged urine following the procedure. These symptoms usually resolve within 2-5 days. Drink the amount of fluid it takes to keep the urine pink to yellow or clear in color. Drinking enough water and fluids will help to ease any discomfort after your procedure. ? If you are having problems that seem out of the ordinary, please call. ? If unable to contact your physician and you feel it is an emergency, go to the nearest emergency room or call 911 ? Diet ? you may resume your normal diet. ? Activity ? you may resume your normal activities ? Call if you have a fever over 100 degrees. I, LEIGHTON ARCINIEGA, have received the attached patient education materials/instructio ns and have verbalized understanding: May we do a follow up call? Yes No I was present when discharge instructions were given Patient Signature Date Clinican/Nurse Signature Date You may receive a survey from [employer] asking you to rate your care experience. Your feedback is important and will help us understand what we do well and how we can improve the quality of care we provide to you, your loved ones and our community. It?s an honor to serve you. Thank you for choosing [facility] Ambulatory Visit Summaryon 0 11-12-2023 Ambulatory Visit Summary Ambulatory Visit Summary LEIGHTON ARCINIEGA :1945 Visit Date:11/12/2023 Ambulatory Visit Instructions Your Diagnosis BPH with urinary obstruction Incomplete bladder emptying ED (erectile dysfunction) Screening PSA (prostate specific antigen) Your Care Team Attending Physician - Josep SANDHU, Mica Johns Primary Care Physician - Lori Medina MD This Is Your Medications List sildenafil (sildenafil 100 mg Tab) tamsulosin (tamsulosin 0.4 mg Cap) Contact prescribing physician if questions or concerns acetaminophen (Tylenol Extra Strength 500 mg oral tablet) acetaminophen-hydroc odone ([place] 325 mg-5 mg oral tablet) allopurinol (allopurinol 300 mg Tab) amlodipine (amLODIPine 10 mg Tab) apixaban (Eliquis 5 mg oral tablet) aspirin (aspirin 325 mg Tab) calcium-vitamin D (calcium-vitamin D 600 mg-400 intl units oral tablet) carvedilol clopidogrel (clopidogrel 75 mg Tab) cyanocobalamin (cyanocobalamin 1000 mcg Tab) diclofenac topical (diclofenac topical 1% gel) empagliflozin (Jardiance 25 mg oral tablet) ferrous sulfate furosemide (furosemide 20 mg Tab) glipiZIDE (glipiZIDE 10 mg Tab) hydrALAZINE (hydrALAZINE 50 mg Tab) insulin glargine (Lantus) liraglutide (Victoza) multivitamin (Multi Vitamins oral tablet) omeprazole (omeprazole 20 mg Cap-DR) semaglutide (Ozempic (1 mg dose)) simvastatin (simvastatin 20 mg Tab) spironolactone (spironolactone 25 mg Tab) terazosin (Hytrin 10 mg Cap) terazosin (terazosin 10 mg Cap) triamcinolone (Triamcinolone Acetonide) valsartan (valsartan 160 mg Tab) Procedures Performed Pacemaker (08/15/2016), Arthroscopy of knee, Colonoscopy, Ring finger Amputation, Tonsillectomy. Discharge Vitals Height 177.8 cm Height 70 in Weight 104.8 kg Weight 230.56 lb BMI 33.15 What to do next Scheduled Follow-Up Appointments 2023 11:00 AM EDT Where: [facility] You Need to Schedule the Following Appointments Follow Up with Josep SANDHU, MIGUELITO Richard, URO When: Where: Medications What How Much When Instructions Unchanged sildenafil (sildenafil 100 mg Tab) 1 Tablets By Mouth As Directed as needed for for erectile dysfunction Take one tab 1 hour prior to sexual activity. Unchanged tamsulosin (tamsulosin 0.4 mg Cap) 1 Capsules By Mouth Once a day (in the evening) Unchanged acetaminophen (Tylenol Extra Strength 500 mg oral tablet) 2 Tablets By Mouth Every day as needed for for pain Contact prescribing physician if questions or concerns Unchanged acetaminophen-hydroc odone ([place] 325 mg-5 mg oral tablet) 1 Tablets By Mouth Every 4 hours as needed for for pain Contact prescribing physician if questions or concerns Unchanged allopurinol (allopurinol 300 mg Tab) 1 Tablets By Mouth Every day Contact prescribing physician if questions or concerns Unchanged amlodipine (amLODIPine 10 mg Tab) 1 Tablets By Mouth Every day Contact prescribing physician if questions or concerns Unchanged apixaban (Eliquis 5 mg oral tablet) Contact prescribing physician if questions or concerns Unchanged aspirin (aspirin 325 mg Tab) 1 Tablets By Mouth Every day Contact prescribing physician if questions or concerns Unchanged calcium-vitamin D (calcium-vitamin D 600 mg-400 intl units oral tablet) 1 Tablets By Mouth Every day Contact prescribing physician if questions or concerns Unchanged carvedilol 3.125 Milligram By Mouth 2 times a day Contact prescribing physician if questions or concerns Unchanged clopidogrel (clopidogrel 75 mg Tab) 1 Tablets By Mouth Every day Contact prescribing physician if questions or concerns Unchanged cyanocobalamin (cyanocobalamin 1000 mcg Tab) 2 Tablets By Mouth Every day Contact prescribing physician if questions or concerns Unchanged diclofenac topical (diclofenac topical 1% gel) Contact prescribing physician if questions or concerns Unchanged empagliflozin (Jardiance 25 mg oral tablet) By Mouth Once a day (in the morning) Contact prescribing physician if questions or concerns Unchanged ferrous sulfate 325 Milligram By Mouth 2 times a day Contact prescribing physician if questions or concerns Unchanged furosemide (furosemide 20 mg Tab) 1 Tablets By Mouth 2 times a day Contact prescribing physician if questions or concerns Unchanged glipiZIDE (glipiZIDE 10 mg Tab) Contact prescribing physician if questions or concerns Unchanged hydrALAZINE (hydrALAZINE 50 mg Tab) 2 Tablets By Mouth 3 times a day Contact prescribing physician if questions or concerns Unchanged insulin glargine (Lantus) Subcutaneous Every day Contact prescribing physician if questions or concerns Unchanged liraglutide (Victoza) 1.8 Units Subcutaneous Every day Contact prescribing physician if questions or concerns Unchanged multivitamin (Multi Vitamins oral tablet) 1 Tablets By Mouth Every day Contact prescribing physician if questions or concerns Unchanged omeprazole (omeprazole 20 mg Cap-DR) 1 Capsules By Mouth E (more content not included)... [facility] Urology Office/Clinic Noteon 11-12-2023 Urology Office/Clinic Note Urology Office/Clinic Note HPI Staff 6 mos. Prior OV: started Viagra 100 mg prn. Previous Dx: BPH with urinary obstruction, incomplete bladder emptying, ED, screening PSA. S/p Rezum by Dr. Vargas 09/16/16. *Tamsulosin 0.4 mg qd. Terazosin 10 mg qd through PCP. Pt. was told he does not need to be on both medications Dysuria: no Incomplete bladder emptying: no, 90mL Hematuria: no Frequency: 2-3 hours or longer Urgency: occasionally Nocturia: 1x Stream: occasionally weak Post void dripping: no Wearing pads/ Depends: no Urge incontinence: has happened a couple time Stress incontinence: no Incontinence without Sensory Awareness: no Abdominal pain: no Flank pain: no History of Present Illness Tests reviewed: reviewed UA I have reviewed the previous health record information and history for this patient from Dr. Car. I have reviewed and verified the staff HPI to be accurate for this encounter. Review of Systems PHQ Score Initial Depression Screen Score: 0 SCORE ROS - Provider Constitutional: denies weight loss, denies hot flashes. Eyes: denies eye problems. Gastrointestinal: denies nausea, denies vomiting. Cardiovascular: denies chest pain or angina. Integumentary: no dryness Musculoskeletal: denies musculoskeletal symptoms. ENMT: denies otolaryngeal symptoms. Respiratory: no shortness of breath. Heme/Lymph: denies easy bleeding tendency, denies easy bruising tendency. Psychiatric: no confusion, no anxiety. Genitourinary: See HPI. Physical Exam Vitals & Measurements HT: 70 in HT: 177.8 cm WT: 104.8 kg WT: 230.56 lb BMI: 33.15 General Appearance: alert, no distress, well nourished, well developed male. Assessment/Plan 77 yo male here for 6 mos follow up. Last seen by SAUNDRA. 1. BPH with urinary obstruction (N40.1: Benign prostatic hyperplasia with lower urinary tract symptoms) S/p Rezum by Dr. Vargas 09/16/16. Lasted over 5 yrs per pt. Taking Tamsulosin 0.4 mg qd and Terazosin 10 mg qd through PCP. IPSS 15 (12). Previously started Flomax a couple visits ago since pt was not emptying well while on Terazosin, wanted to see if pt would empty better with different alpha howie. Discussed operative interventions that would allow pt to d/c oral meds such as TURP, versus less invasive options such as Rezum or Urolift, depending on prostate size and shape. R/Bs of options discussed. Educational pamphlets provided. Would need cysto/TRUS for prostate sizing to assess procedure candidacy. -D/c Terazosin. -Cont tamsulosin 0.4 mg -Will schedule cysto/TRUS for prostate sizing. The risks and benefits for cystoscopy have been discussed. The risks include bleeding, infection, and irritation of the bladder and urinary channel, among others. The patient, after being informed of procedural details and after questions have been answered, wishes to proceed. Full informed consent has been obtained. Will order Local anesthesia. 2. Incomplete bladder emptying (R33.9: Retention of urine, unspecified) PVR (cc): 05/07/23 - 392 (felt empty after, declined CIC or cath) 06/16/23 - 114 11/12/23 - 90 Emptying improved. -Cont timed voids 3. ED (erectile dysfunction) (N52.9: Male erectile dysfunction, unspecified) Hx of [place] in 2002. Has pacemaker in place. Denies taking nitro products. [2] AMANDA 5 (5). Stopped Cialis and started Viagra 100 mg prn at prior OV. Not improvement with Sildenafil. Not interested in CIC or penile implant at this time. Pt would like to focus on tx for his prostate. -Pt to notify us if he decides to proceed treatment 4. Screening PSA (prostate specific antigen) (Z12.5: Encounter for screening for malignant neoplasm of prostate) PSA 02/10/21 - 1.58 01/22/22 - 1.17 04/22/23 - 1.60 Previously discussed stopping PSA checks due to advancing age and PSA stability but pt preferred continued monitoring as he said he would be willing to under a biopsy if necessary. [1] Follow-up With When Contact Information Josep SANDHU, Mica Johns, URL, URO Additional Instructions: schedule cysto/TRUS for prostate sizing Patient Education Benign Prostatic Hyperplasia IMaria Luz, personally scribed for Dr. Car on 11/12/2023 16:14:22. . Documentation recorded by the scribeMaria Luz, accurately reflects the services(s) I performed and decisions made by me. Authenticated by Dr. Car on 11/12/2023 16:43:01. Problem List/Past Medical History Ongoing Anticoagulated Arthritis Aspirin long-term use BPH with urinary obstruction CKD (chronic kidney disease) stage 3, GFR 30-59 ml/min Diabetes ED (erectile dysfunction) Emphysema/COPD Epidermal cyst Extreme obesity Former smoker Heart disease Hx of migraine headaches Hypercholesteremia Incomplete bladder emptying Kidney stones Myocardial infarct Nocturia Prostate hyperplasia with urinary obstruction Screening PSA (prostate specific antigen) Seborr (more content not included)... [facility] Comment on above: Result Comment: Elec tronically Signed By: Josep SANDHU, Mica Johns\.br\Date and Time Signed: 11/12/23 16:43 EDT\.br\Electronically Co-Signed By: Maria Luz Mejia\.br\Date and Time Co-Signed: 11/12/23 16:14 EDT PTH [place] 10-15-2023 Parathyrin.intact [Mass/Vol] 49 pg/mL Invalid Interpretation Code 15-65 [facility] Comment on above: Result Comment: Perf ormed at: [facility] [address] [id number] PhD Carlos Singh Performed By: #### 1 [id number] #### [facility] [address] [place] [address] ED Clinical Summaryon 2023 ED Clinical Summary ED Clinical Summary [address] [address] ED Clinical Summary Person Information Name: LEIGHTON ARCINIEGA [facility] Age: 77 Years : 1945 Sex: Male Language: Bahraini PCP: Lori Medina MD Marital Status: Visit Id: Visit Reason: Knee pain-swelling; LT KNEE PAIN Speciality: Acuity: 4 Enc Type: Emergency Med Service: Emergency Arrival: 10/14/2023 11:36:13 Discharge: 10/14/2023 13:18:50 LOS: 000 01:42 Checkin: 10/14/2023 11:36:13 Checkout: 10/14/2023 13:18:50 Dispo Type: Home (Routine DC) EVENTS: Event Name Event Status Request Date/Time Start Date/Time Complete Date/Time Arrive Complete 10/14/2023 11:36:13 10/14/2023 11:36:13 10/14/2023 11:36:13 Document Home Meds Request 10/14/2023 11:36:13 Triage Complete 10/14/2023 11:36:13 10/14/2023 11:44:06 10/14/2023 11:44:06 Registration Complete 10/14/2023 11:41:03 10/14/2023 11:41:03 10/14/2023 11:41:03 Reg Complete Request 10/14/2023 11:41:03 Reg Bed Request Complete 10/14/2023 11:41:03 10/14/2023 11:41:03 10/14/2023 11:41:03 Bed Assign Complete 10/14/2023 11:41:23 10/14/2023 11:41:23 10/14/2023 11:41:23 Dr Exam Complete 10/14/2023 11:41:23 10/14/2023 12:16:02 10/14/2023 12:16:02 RN Exam Complete 10/14/2023 11:41:23 10/14/2023 11:45:16 10/14/2023 11:45:16 Registration Request 10/14/2023 12:16:02 X-Ray Complete 10/14/2023 12:32:10 10/14/2023 12:34:59 10/14/2023 12:50:16 Wet Read Request 10/14/2023 12:50:16 Dr Exam Complete 10/14/2023 12:57:57 10/14/2023 12:57:57 10/14/2023 12:57:57 Dr Exam Complete 10/14/2023 13:01:46 10/14/2023 13:01:46 10/14/2023 13:01:46 Discharge Complete 10/14/2023 13:14:50 10/14/2023 13:18:55 10/14/2023 13:18:55 Transfer Complete 10/14/2023 13:18:55 10/14/2023 13:18:55 10/14/2023 13:18:55 ADDRESS: [facility] [address] [place] [id number] [facility] DOC NOTES: MEDICAL INFORMATION: Prescriptions Given: New Medications [id number], [address] [place], [place] [id number], [phone] acetaminophen-hydroc odone ([place] 325 mg-5 mg oral tablet) 1 Tablets By Mouth every 4 hours as needed for pain. Refills: 0. Medications to Continue with No Changes Other Medications acetaminophen (Tylenol Extra Strength 500 mg oral tablet) 2 Tablets By Mouth every day as needed for pain. allopurinol (allopurinol 300 mg Tab) 1 Tablets By Mouth every day. amlodipine (amLODIPine 10 mg Tab) 1 Tablets By Mouth every day. apixaban (Eliquis 5 mg oral tablet) aspirin (aspirin 325 mg Tab) 1 Tablets By Mouth every day. calcium-vitamin D (calcium-vitamin D 600 mg-400 intl units oral tablet) 1 Tablets By Mouth every day. carvedilol 3.125 Milligram By Mouth 2 times a day. clopidogrel (clopidogrel 75 mg Tab) 1 Tablets By Mouth every day. cyanocobalamin (cyanocobalamin 1000 mcg Tab) 2 Tablets By Mouth every day. diclofenac topical (diclofenac topical 1% gel) empagliflozin (Jardiance 25 mg oral tablet) By Mouth once a day (in the morning). ferrous sulfate 325 Milligram By Mouth 2 times a day. furosemide (furosemide 20 mg Tab) 1 Tablets By Mouth 2 times a day. glipiZIDE (glipiZIDE 10 mg Tab) hydrALAZINE (hydrALAZINE 50 mg Tab) 2 Tablets By Mouth 3 times a day. insulin glargine (Lantus) Subcutaneous every day. liraglutide (Victoza) 1.8 Units Subcutaneous every day. multivitamin (Multi Vitamins oral tablet) 1 Tablets By Mouth every day. omeprazole (omeprazole 20 mg Cap-DR) 1 Capsules By Mouth every day. semaglutide (Ozempic (1 mg dose)) 1 Milligram Subcutaneous every week. sildenafil (sildenafil 100 mg Tab) 1 Tablets By Mouth As Directed as needed for erectile dysfunction. Take one tab 1 hour prior to sexual activity.. Refills: 3. simvastatin (simvastatin 20 mg Tab) 0.5 Tablets By Mouth once a day (at bedtime). spironolactone (spironolactone 25 mg Tab) 2 Tablets By Mouth 2 times a day. tamsulosin (tamsulosin 0.4 mg Cap) 1 Capsules By Mouth once a day (in the evening). Refills: 11. terazosin (Hytrin 10 mg Cap) 1 Capsules By Mouth every day. terazosin (terazosin 10 mg Cap) triamcinolone (Triamcinolone Acetonide) valsartan (valsartan 160 mg Tab) 1 Tablets By Mouth every day. PATIENT EDUCATION INFORMATION: Instructions: Acute Knee Pain, Adult, Fwaw-sa-Depa Follow up: With: Address: When: Andrea Espana [address] [place] [id number] Business (1) In 3 days 10/17/2023 With: Address: When: Call to schedule a follow-up appointment with your orthopedic surgeon. Use the [place] as needed for pain along with icing. . If you are unable to get in with your orthopedic surgeon, I have provided a referral for another one. In 3 days 10/17/2023 With: Address: When: Lori Medina [address] [place] [address], [facility] [place] [phone] Business (1) In 3 days DIAGNOSIS: Posterior left knee pain [facility] ED Note-Physicianon 10-14-19 ED Note-Physician ED Note-Physician Basic Information No qualifying data available. Chief Complaint pt states he was trying to get down onto his knees and began to have L knee pain after.. Deneis any falls. VSS, NAD. History of Present Illness Patient is a 77 year old male with a history of arthritis and s/p left knee laparoscopic surgery who presents to the ED with left knee pain that began yesterday evening. He states that he had a past laparoscopic surgery of this knee to repair bone spurs on the posterior aspect of his left patella approximately 20 years ago. He states he was trying to bend down onto his knees last night when he developed sudden knee pain. Patient states the pain is on the outer aspect of his kneecap with pain behind his knee as well. He states he is still able to bear weight but has been more challenging when standing for a long period of time. He states pain is worsened with flexion of his knee. Patient states that he has tried bracing the knee as well but has gotten minimal relief. He denies radiation of his pain. He denies any numbness or tingling of the area. Pain is a 5/10 at today's visit with no other concerns. Patient notes he has previously received cortisone injections in his knees bilaterally approximately 7 months ago with an orthopedic surgeon due to arthritis. Review of Systems A 10 point review of systems is negative except as noted above. Medical and Surgical History: Reviewed and noted Social history: Lives at home Family History: Reviewed. Tobacco: Denies Physical Exam Vitals & Measurements T: 36.9 ?C(Oral) HR: 56(Peripheral) RR: 18 BP: 131/67 SpO2: 97% HT: 177 cm WT: 104.8 kg BMI: 33.45 General: The patient appears well and in no apparent distress. Patient is resting comfortably on cart. Skin: Warm, dry, no pallor noted. No unilateral leg swelling, erythema, or warmth Head: Normocephalic, atraumatic Eye: PERRLA, EOMI ENT: Moist mucus membranes Cardiovascular: Regular rate normal peripheral perfusion Respiratory: No respiratory distress no accessory muscle use no obvious audible wheezing Musculoskeletal: no deformity, no swelling, tenderness to palpation of the left popliteal region, limited flexion of the right knee secondary to pain, extension of knee intact, neurovascularly intact Neurological: A&Ox4 Psychiatric: Cooperative and appropriate Medical Decision Making Patient is a 77 year old male with a history of arthritis and s/p left knee laparoscopic surgery who presents to the ED with left knee pain that began yesterday while bending down. Patient is hemodynamically stable. Left knee x-ray shows no acute osseous findings. Patient notes he previously saw an orthopedic surgeon in [facility] for arthritis in which he will follow-up for further management of care. Patient is on Eliquis therefore I cannot prescribe him naproxen or any form of NSAID. Due to his age I did not feel a muscle relaxer was appropriate either. Based on this he is being prescribed 4 doses of [place]. He was educated on appropriate use of this. Patient will follow-up with orthopedic surgery for further management of care. He was advised to return to the ED with any worsening symptoms. Patient is agreeable with the plan and all questions were answered. Assessment/Plan Posterior left knee pain (M25.562: Pain in left knee) Orders: acetaminophen-hydroc odone, 1 tab(s), Oral, q4hr for pain, 4 tab(s), Refill(s) 0, [id number], 177, cm, 10/14/23 11:44:00 EDT, Height/Length Dosing, 104.8, kg, 10/14/23 11:44:00 EDT, Weight Dosing Disposition Plan Patient Discharge Condition stable Discharge Disposition home Discharge Prescription List Prescriptions P[place] 325 mg-5 mg oral tablet, 1 tab(s), Oral, q4hr, PRN Follow-up With When Contact Information Andrea Espana In 3 days 10/17/2023 EDT [address] [place] [address]- Business (1) Additional Instructions: Call to schedule a follow-up appointment with your orthopedic surgeon. Use the [place] as needed for pain along with icing. . If you are unable to get in with your orthopedic surgeon, I have provided a referral for another one. In 3 days 10/17/2023 EDT Additional Instructions: Lori Medina In 3 days [address] [facility] [place] [address]- Business (1) Additional Instructions: Patient Education Acute Knee Pain, Adult, [id number] Attestation Patient seen and evaluated by the physician starch treating assistant. Attending physician was present in the emergency department and supervised care. This visit was performed by both the physician and an APC. I performed all aspects of the MDM as documented. This report was transcribed using voice recognition software. Every effort was made to ensure accuracy, however, inadvertently computerized fondant cooker mistakes may be present. Appropriate healthcare PPE was used in evaluating this patient. The patient was placed in a mask. The healthcare provider was wearing mask, gloves, and utiliz (more content not included)... [facility] Comment on above: Result Comment: Elec tronically Signed By: Vini Quinteros DO\.br\Date and Time Signed: 10/14/23 16:09 EDT\.br\Electronically Co-Signed By: Nayla William PA-C\.br\Date and Time Co-Signed: 10/14/23 13:46 EDT ED Patient Summaryon 024 ED Patient Summary ED Patient Summary [facility] [address] [place], [place] [address] Patient Discharge Instructions Person Information Name: LEIGHTON ARCINIEGA Age: 77 Years Arrival Date: 10/14/2023 11:36:13 Discharge Diagnosis: Posterior left knee pain Primary Care Physician: Lori Medina MD Provider Information Primary Provider: Vini Quinteros DO Advanced Fish Bait Picker:Nayla William PA-C The exam and treatment you received in the Emergency Department were for an urgent problem and are not intended as complete care. It is important that you follow up with a doctor, nurse practitioner, or physician?s starch treating assistant for ongoing care. If your symptoms become worse or you do not improve as expected and you are unable to reach your usual health care provider, you should return to the Emergency Department. We are available 24 hours a day. LEIGHTON ARCINIEGA has been given the following list of patient education materials, prescriptions and follow-up instructions: Follow-up Instructions: With: Address: When: Andrea Espana [address] [place], [place] [phone] Business (1) In 3 days 10/17/2023 With: Address: When: Call to schedule a follow-up appointment with your orthopedic surgeon. Use the [place] as needed for pain along with icing. . If you are unable to get in with your orthopedic surgeon, I have provided a referral for another one. In 3 days 10/17/2023 With: Address: When: Lori Medina [address] [facility] [place] [phone] Business (1) In 3 days In the event that this physician does not participate in your insurance network, please consult with your insurance company to find a nearby participating provider. Patient Education Materials: Acute Knee Pain, Adult, [id number] A MESSAGE TO ALL PATIENTS REGARDING OPIOIDS PRESCRIPTION OPIOIDS: WHAT YOU NEED TO KNOW Prescription opioids can be used to help relieve [id number] pain and are often prescribed following a surgery or injury, or for certain health conditions. These medications can be an important part of the treatment but also come with serious risks. It is important to work with your healthcare provider to make sure you are getting the safest, most effective care. WHAT ARE THE RISKS AND SIDE EFFECTS OF OPIOID USE? Prescription opioids carry serious risks of addiction and overdose, especially with prolonged use. An opioid overdose, often marked by slowed breathing, can cause sudden . The use of prescription opioids can have a number of side effects as well, even when taken as directed: ? Tolerance?meaning you might need to take more of the medication for the same pain relief ? Physical dependence?meaning you have symptoms of withdrawal when a medication is stopped ? Increased sensitivity to pain ? Constipation ? Nausea, vomiting, and dry mouth ? Sleepiness and dizziness ? Confusion ? Depression ? Low levels of testosterone that can result in lower sex drive, energy, and strength ? Itching and sweating RISKS ARE GREATER WITH: ? History of drug misuse, substance use disorder, or overdose ? Mental health conditions (such as depression or anxiety) ? Sleep apnea ? Older age (65 years and older) ? Avoid alcohol while taking prescription opioids. Also, unless specifically advised by your health care provider, medications to avoid include: ? Benzodiazepines (such as Xanax or Valium) ? Muscle relaxants (such as Soma or Flexeril) ? Hypnotics (such as Ambien or Lunesta) ? Other prescription opioids KNOW YOUR OPTIONS Talk to your health care provider about ways to manage your pain that don?t involve prescription opioids. Some of these options may actually work better and have fewer risks and side effects. Options may include: ? Pain relievers such as acetaminophen, ibuprofen, and naproxen ? Some medication that are also used for depression or seizures ? Physical therapy and exercise ? Cognitive behavioral therapy, a psychological, goal-directed approach, in which patients learn how to modify physical, behavioral, and emotional triggers of pain and stress. IF YOU ARE PRESCRIBED OPIOIDS FOR PAIN: ? Never take opioids in greater amounts or more often than prescribed. ? Follow up with your primary health care provider. o Work together to create a plan on how to manage your pain. o Talk about ways to help manage your pain that don?t involve prescription opioids. o Talk about any and all concerns and side effects. ? Help prevent misuse and abuse o Never sell or share prescription opioids. o Never use another person?s prescription opioids. ? Store prescription opioids in a secure place and out of reach of others (this may include visitors, children, friends, and family). ? Safely dispose of unused prescription opioids: Find your community drug take-back program or yo (more content not included)... [facility] XR Knee Complete 4+ Views Le fton 10-14-2023 XR Knee Complete 4+ Views Left Exam Date/Time: 10/14/2023 12:50 EDT Reason for Exam: Pain, Traumatic Report IMPRESSION: No acute osseous findings. EXAMINATION/TECHNIQU E: XR Knee Complete 4+ Views Left HISTORY: Left knee pain. COMPARISON: None RESULT: No evidence for acute fracture. No dislocation. Small suprapatellar joint effusion. Tricompartmental osteophytes with at least mild patellofemoral narrowing and borderline mild medial compartment narrowing. Chondrocalcinosis. Vascular calcifications. Underlying decreased bone mineral density. Mild soft tissue edema. No other significant abnormality. Ordering Provider: Vini Quinteros FINAL REPORT Dictated: 10/14/2023 1:49 pm Andrae Archer MD. Signed (Electronic Signature): 10/14/2023 1:49 pm Signed by: Andrae Archer MD Transcribed by: SENA Technologist: ISELA Technical Comments Radiation Dose: Ka,r in mGy = na DAP = na [facility] [place] 06-17-2023 Screens [id number] #1.00TIFF [facility] Screens [id number] #1.00TIFF [facility] Ambulatory Visit Summaryon 0 06-16-2023 Ambulatory Visit Summary LEIGHTON ARCINIEGA :1945 Visit Date:06/16/2023 Ambulatory Visit Instructions Your Diagnosis BPH with urinary obstruction Incomplete bladder emptying ED (erectile dysfunction) Screening PSA (prostate specific antigen) Your Care Team Attending Physician - FELIPE BENDER, NATA Holt Primary Care Physician - Lori Medina MD This Is Your Medications List tadalafil (tadalafil 10 mg Tab) Contact prescribing physician if questions or concerns acetaminophen (Tylenol Extra Strength 500 mg oral tablet) allopurinol (allopurinol 300 mg Tab) amlodipine (amLODIPine 10 mg Tab) apixaban (Eliquis 5 mg oral tablet) aspirin (aspirin 325 mg Tab) calcium-vitamin D (calcium-vitamin D 600 mg-400 intl units oral tablet) carvedilol clopidogrel (clopidogrel 75 mg Tab) cyanocobalamin (cyanocobalamin 1000 mcg Tab) diclofenac topical (diclofenac topical 1% gel) empagliflozin (Jardiance 25 mg oral tablet) ferrous sulfate furosemide (furosemide 20 mg Tab) glipiZIDE (glipiZIDE 10 mg Tab) hydrALAZINE (hydrALAZINE 50 mg Tab) insulin glargine (Lantus) liraglutide (Victoza) multivitamin (Multi Vitamins oral tablet) omeprazole (omeprazole 20 mg Cap-DR) semaglutide (Ozempic (1 mg dose)) simvastatin (simvastatin 20 mg Tab) spironolactone (spironolactone 25 mg Tab) tamsulosin (tamsulosin 0.4 mg Cap) terazosin (Hytrin 10 mg Cap) terazosin (terazosin 10 mg Cap) triamcinolone (Triamcinolone Acetonide) valsartan (valsartan 160 mg Tab) Procedures Performed Pacemaker (08/15/2016), Arthroscopy of knee, Colonoscopy, Ring finger Amputation, Tonsillectomy. Discharge Vitals Temperature (Temporal Artery) 37 ?C Heart Rate (Peripheral) 66 Respiratory Rate 12 Blood Pressure 132/84 Height 70 in Height 177.8 cm Weight 230.56 lb Weight 104.8 kg BMI 33.15 What to do next Scheduled Follow-Up Appointments 2023 1:30 PM EDT With: Where: Cardiovascular Services Wednesday 3:00 PM EDT With: Josep SANDHU, Mica Johns Where: [facility] Patient Education 06-16-19 24 Patient Education Urology Erectile Dysfunction Erectile dysfunction (ED) is the inability to get or keep an erection in order to have sexual intercourse. ED is considered a symptom of an underlying disorder and is not considered a disease. ED may include: ? Inability to get an erection. ? Lack of enough hardness of the erection to allow penetration. ? Loss of erection before sex is finished. What are the causes? This condition may be caused by: ? Physical causes, such as: ? Artery problems. This may include heart disease, high blood pressure, atherosclerosis, and diabetes. ? Hormonal problems, such as low testosterone. ? Obesity. ? Nerve problems. This may include back or pelvic injuries, multiple sclerosis, Parkinson's disease, spinal cord injury, and stroke. ? Certain medicines, such as: ? Pain relievers. ? Antidepressants. ? Blood pressure medicines and water pills (diuretics). ? Cancer medicines. ? Antihistamines. ? Muscle relaxants. ? Lifestyle factors, such as: ? Use of drugs such as marijuana, cocaine, or opioids. ? Excessive use of alcohol. ? Smoking. ? Lack of physical activity or exercise. ? Psychological causes, such as: ? Anxiety or stress. ? Sadness or depression. ? Exhaustion. ? Fear about sexual performance. ? Guilt. What are the signs or symptoms? Symptoms of this condition include: ? Inability to get an erection. ? Lack of enough hardness of the erection to allow penetration. ? Loss of the erection before sex is finished. ? Sometimes having normal erections, but with frequent unsatisfactory episodes. ? Low sexual satisfaction in either partner due to erection problems. ? A curved penis occurring with erection. The curve may cause pain, or the penis may be too curved to allow for intercourse. ? Never having nighttime or morning erections. How is this diagnosed? This condition is often diagnosed by: ? Performing a physical exam to find other diseases or specific problems with the penis. ? Asking you detailed questions about the problem. ? Doing tests, such as: ? Blood tests to check for diabetes mellitus or high cholesterol, or to measure hormone levels. ? Other tests to check for underlying health conditions. ? An ultrasound exam to check for scarring. ? A test to check blood flow to the penis. ? Doing a sleep study at home to measure nighttime erections. How is this treated? This condition may be treated by: ? Medicines, such as: ? Medicine taken by mouth to help you achieve an erection (oral medicine). ? Hormone replacement therapy to replace low testosterone levels. ? Medicine that is injected into the penis. Your health care provider may instruct you how to give yourself these injections at home. ? Medicine that is delivered with a short applicator tube. The tube is inserted into the opening at the tip of the penis, which is the opening of the urethra. A tiny pellet of medicine is put in the urethra. The pellet dissolves and enhances erectile function. This is also called MUSE (medicated urethral system for erections) therapy. ? Vacuum pump. This is a pump with a ring on it. The pump and ring are placed on the penis and used to create pressure that helps the penis become erect. ? Penile implant surgery. In this procedure, you may receive: ? An inflatable implant. This consists of cylinders, a pump, and a reservoir. The cylinders can be inflated with a fluid that helps to create an erection, and they can be deflated after intercourse. ? A semi-rigid implant. This consists of two silicone rubber rods. The rods provide some rigidity. They are also flexible, so the penis can both curve downward in its normal position and become straight for sexual intercourse. ? Blood vessel surgery to improve blood flow to the penis. During this procedure, a blood vessel from a different part of the body is placed into the penis to allow blood to flow around (bypass) damaged or blocked blood vessels. ? Lifestyle changes, such as exercising more, losing weight, and quitting smoking. Follow these instructions at home: Medicines ? Take pehh-vqe-cbltnos and prescription medicines only as told by your health care provider. Do not increase the dosage without first discussing it with your health care provider. ? If you are using self-injections, do injections as directed by your health care provider. Make sure you avoid any veins that are on the surface of the penis. After giving an injection, apply pressure to the injection site for 5 minutes. ? Talk to your health care provider about how to prevent headaches while taking ED medicines. These medicines may cause a sudden headache due to the increase in blood flow in your body. General instructions ? Exercise regularly, as directed by your health care provider. Work with your health care provider to lose weight, if needed. ? Do not use any products that contain nicotine or tobacco. These products include cig (more content not included)... [facility] Urology Office/Clinic Noteon 06-16-2023 Urology Office/Clinic Note Chief Complaint 1 month follow up w/ PVR HPI Staff Pt is here for 1 month F/U with [facility] Previous DX; BPH w/ urinary obstruction, ED PVR at last encounter was 392 Current PSA- 04/22/23- 1.60 Started Tamsulosin qd. Pt stopped Tadalafil medication stating it does not work. Dysuria: denies pain and burning Incomplete bladder emptying: denies Hematuria: denies visible blood Frequency: every 2 hours Urgency: occasional Nocturia: occasionally Stream: sometimes hesitancy Leaking: denies Post void dripping: denies Wearing pads/ Depends: denies Urge incontinence: denies Stress incontinence: denies Incontinence without Sensory Awareness: denies Abdominal pain: denies Flank pain: denies Sexual complaints: _ History of Present Illness staff HPI reviewed and agree. Review of Systems PHQ Score Initial Depression Screen Score: 0 SCORE no fever, chills, malaise, myalgia. no rash/lesions. no chest pain, palpitations, or SOB. no abdominal pain, nausea, vomiting. no unilateral calf swelling, redness, pain Physical Exam Vitals & Measurements T: 37 ?C(Temporal Artery) HR: 66(Peripheral) RR: 12 BP: 132/84 HT: 70 in HT: 177.8 cm WT: 104.8 kg WT: 230.56 lb BMI: 33.15 General: nontoxic, NAD Mouth: moist mucosa Lungs: normal respiratory effort Cardio: regular rate, good distal perfusion Abdomen: nondistended, no suprapubic distention or tenderness, no CVA tenderness Neurologic: Grossly normal Skin: No rashes or suspicious lesions Assessment/Plan Dr. Car, prior Dr. Vargas, pt. 1. BPH with urinary obstruction (N40.1: Benign prostatic hyperplasia with lower urinary tract symptoms) S/p Rezum 09/16/16 by RWR. PVR (cc): 05/07/23 - 392 (felt empty after, declined CIC or cath) 06/16/23 - 114 UA today negative for blood and infection. Started on Tamsulosin 0.4 mg qd at prior OV due to weak stream. Feels sx have improved slightly. IPSS 12 (16). Denies SEs. States he has been voiding q2hrs as recommended. Discussed importance/benefits of timed voids. Advised pt he is emptying better. -Cont timed voids -Cont Tamsulosin (also on Terazosin per PCP for BP). -Has f/u already scheduled w [facility] 11/12/23 2. Incomplete bladder emptying (R33.9: Retention of urine, unspecified) See #1 3. ED (erectile dysfunction) (N52.9: Male erectile dysfunction, unspecified) Hx of [place] in 2002. Has pacemaker in place. Denies taking nitro products. Tried Cialis once - worked. Reports [facility]. AMANDA 5 (1). Started on Cialis 10mg prn (up to 2 pills) at prior OV. Tried taking one pill at first, did not work. Then tried taking 2 pills and still had no sx improvement. Discussed alternative treatment options. Pt prefers to try Viagra. Discussed the medication side effects, and the patient will monitor closely for these, as well as for symptom improvement. If severe side effects occur, the medication should be stopped and the office notified. Briefly discussed ICI if fails second oral option. -D/c Cialis -Start Viagra 100mg prn. Pt knows nitroglycerin is contraindicated. 4. Screening PSA (prostate specific antigen) (Z12.5: Encounter for screening for malignant neoplasm of prostate) PSA 02/10/21 - 1.58 01/22/22 - 1.17 04/22/23 - 1.60 Previously discussed stopping PSA checks due to advancing age and PSA stability but pt preferred continued monitoring as he said he would be willing to under a biopsy if necessary. Follow-up With When Contact Information Josep SANDHU, Mica Johns, URL, [facility] [address] [place] [address] [phone] Additional Instructions: Has f/u already scheduled 11/12/23 Patient Education Erectile Dysfunction Benign Prostatic Hyperplasia Documentation recorded by the deon Frankel accurately reflects the services(s) I performed and decisions made by me. Authenticated by Nata Ta PA-C on 06/16/2023 10:56:10. Kriss Heredia, personally scribed for Nata Ta PA-C on 06/16/2023 10:47:44. . Problem List/Past Medical History Ongoing Anticoagulated Arthritis Aspirin long-term use BPH with urinary obstruction CKD (chronic kidney disease) stage 3, GFR 30-59 ml/min Diabetes ED (erectile dysfunction) Emphysema/COPD Epidermal cyst Extreme obesity Former smoker Heart disease Hx of migraine headaches Hypercholesteremia Incomplete bladder emptying Kidney stones Myocardial infarct Nocturia Prostate hyperplasia with urinary obstruction Screening PSA (prostate specific antigen) Seborrheic keratoses SSS (sick sinus syndrome) Urinary urgency Historical Acute kidney failure Asthma CHF (congestive heart failure) DM (diabetes mellitus), type 2 GERD (gastroesophageal reflux disease) HTN (hypertension) OA (osteoarthritis) Obesity Psoriasis Procedure/Surgical History Pacemaker (08/15/2016), Arthroscopy of knee, Colonoscopy, Ring finger Amputation, Tonsillectomy. (more content not included)... [facility] Comment on above: Result Comment: Elec tronically Signed By: NATA TA PA-C\.br\Date and Time Signed: 06/16/23 10:56 EDT\.br\Electronically Co-Signed By: Kriss Frankel\.br\Date and Time Co-Signed: 06/16/23 10:48 EDT [place] 05-10-2023 Screens [id number] #1.00TIFF [facility] Screens [id number] #1.00TIFF [facility] Ambulatory Visit Summaryon 0 05-07-2023 Ambulatory Visit Summary LEIGHTON ARCINIEGA Tyrese :1945 Visit Date:05/07/2023 Ambulatory Visit Instructions Your Diagnosis BPH with urinary obstruction ED (erectile dysfunction) Incomplete bladder emptying Your Care Team Attending Physician - Josep SANDHU, Mica Johns Primary Care Physician - Lori Medina MD This Is Your Medications List tadalafil (tadalafil 10 mg Tab) tamsulosin (tamsulosin 0.4 mg Cap) Contact prescribing physician if questions or concerns acetaminophen (Tylenol Extra Strength 500 mg oral tablet) allopurinol (allopurinol 300 mg Tab) amlodipine (amLODIPine 10 mg Tab) apixaban (Eliquis 5 mg oral tablet) aspirin (aspirin 325 mg Tab) calcium-vitamin D (calcium-vitamin D 600 mg-400 intl units oral tablet) carvedilol clopidogrel (clopidogrel 75 mg Tab) cyanocobalamin (cyanocobalamin 1000 mcg Tab) diclofenac topical (diclofenac topical 1% gel) empagliflozin (Jardiance 25 mg oral tablet) ferrous sulfate furosemide (furosemide 20 mg Tab) glipiZIDE (glipiZIDE 10 mg Tab) hydrALAZINE (hydrALAZINE 50 mg Tab) insulin glargine (Lantus) liraglutide (Victoza) multivitamin (Multi Vitamins oral tablet) omeprazole (omeprazole 20 mg Cap-DR) semaglutide (Ozempic (1 mg dose)) simvastatin (simvastatin 20 mg Tab) spironolactone (spironolactone 25 mg Tab) terazosin (Hytrin 10 mg Cap) terazosin (terazosin 10 mg Cap) triamcinolone (Triamcinolone Acetonide) valsartan (valsartan 160 mg Tab) Procedures Performed Pacemaker (08/15/2016), Arthroscopy of knee, Colonoscopy, Ring finger Amputation, Tonsillectomy. Discharge Vitals Blood Pressure 132/84 Height 70 in Height 177.8 cm Weight 230.56 lb Weight 104.8 kg BMI 33.15 What to do next Scheduled Follow-Up Appointments Wednesday 9:40 AM EDT With: NATA TA PA-C Where: [facility] Normal [address] [place] [address]- \.br\ You Need to Schedule the Following Appointments\.br\ Follow Up with NATA TA PA-C, URL When: \.br\ Comments:\.br\ 1 mos w/ PVR \.br\ Where:\.br\ [address]br\ [place] [address]\.br\ [phone]\.br\ Medications\.br\ What How Much When Instructions\.br\ New tadalafil (tadalafil 10 mg Tab) 1 Tablets By Mouth As Directed as needed for for erectile dysfunction Refills: 3 Take one tab 1 hour prior to sexual activity. Do not exceed 20mg in 48hrs. Pickup at [facility] #[id number]\.br\ New tamsulosin (tamsulosin 0.4 mg Cap) 1 Capsules By Mouth Once a day (in the evening) Refills: 11 Pickup at [facility] #[id number]\.br\ Unchanged acetaminophen (Tylenol Extra Strength 500 mg oral tablet) 2 Tablets By Mouth Every day as needed for for pain Contact prescribing physician if questions or concerns \.br\ Unchanged allopurinol (allopurinol 300 mg Tab) 1 Tablets By Mouth Every day Contact prescribing physician if questions or concerns \.br\ Unchanged amlodipine (amLODIPine 10 mg Tab) 1 Tablets By Mouth Every day Contact prescribing physician if questions or concerns \.br\ Unchanged apixaban (Eliquis 5 mg oral tablet) Contact prescribing physician if questions or concerns \.br\ Unchanged aspirin (aspirin 325 mg Tab) 1 Tablets By Mouth Every day Contact prescribing physician if questions or concerns \.br\ Unchanged calcium-vitamin D (calcium-vitamin D 600 mg-400 intl units oral tablet) 1 Tablets By Mouth Every day Contact prescribing physician if questions or concerns \.br\ Unchanged carvedilol 3.125 Milligram By Mouth 2 times a day Contact prescribing physician if questions or concerns \.br\ Unchanged clopidogrel (clopidogrel 75 mg Tab) 1 Tablets By Mouth Every day Contact prescribing physician if questions or concerns \.br\ Unchanged cyanocobalamin (cyanocobalamin 1000 mcg Tab) 2 Tablets By Mouth Every day Contact prescribing physician if questions or concerns \.br\ Unchanged diclofenac topical (diclofenac topical 1% gel) Contact prescribing physician if questions or concerns \.br\ Unchanged empagliflozin (Jardiance 25 mg oral tablet) By Mouth Once a day (in the morning) Contact prescribing physician if questions or concerns \.br\ Unchanged ferrous sulfate 325 Milligram By Mouth 2 times a day Contact prescribing physician if questions or concerns \.br\ Unchanged furosemide (furosemide 20 mg Tab) 1 Tablets By Mouth 2 times a day Contact prescribing physician if questions or concerns \.br\ Unchanged glipiZIDE (glipiZIDE 10 mg Tab) Contact prescribing physician if questions or concerns \.br\ Unchanged hydrALAZINE (hydrALAZINE 50 mg Tab) 2 Tablets By Mouth 3 times a day Contact prescribing physician if questions or concerns \.br\ Unchanged insulin glargine (Lantus) Subcutaneous Every day Contact prescribing physician if questions or concerns \.br\ Unchanged liraglutide (Victoza) 1.8 Units Subcutaneous Every day Contact prescribing physician if questions or concerns \.br\ Unchanged multivitamin (Multi Vitamins oral tablet) 1 Tablets By Mouth Every day Contact prescribing physician if questions or concerns \.br\ Unchanged omeprazole (omeprazole 20 mg Cap-DR) 1 Capsules By Mouth Every day Contact prescribing physician if questions or concerns \.br\ Unchanged semaglutide (Ozempic (1 mg dose)) 1 Milligram Subcutaneous Every week Contact prescribing physician if questions or concerns \.br\ Unchanged simvastatin (simvastatin 20 mg Tab) 0.5 Tablets By Mouth Once a day (at bedtime) Contact prescribing physician if questions or concerns \.br\ Unchanged spironolactone (spironolactone 25 mg Tab) 2 Tablets By Mouth 2 times a day Contact prescribing physician if questions or concerns \.br\ Unchanged terazosin (Hytrin 10 mg Cap) 1 Capsules By Mouth Every day Contact prescribing physician if questions or concerns \.br\ Unchanged terazosin (terazosin 10 mg Cap) Contact prescribing physician if questions or concerns \.br\ Unchanged triamcinolone (Triamcinolone Acetonide) Contact prescribing physician if questions or concerns \.br\ Unchanged valsartan (valsartan 160 mg Tab) 1 Tablets By Mouth Every day Contact prescribing physician if questions or concerns \.br\ Pharmacy Information\.br\ [facility] #[id number]: [address] [place], [place] [id number] [phone]\.br\ Allergies\.br\ Monopril (Dry cough)\.br\ Strawberries (rash)\.br\ Tomatoes (rash)\.br\ metoprolol (Hypotension)\.br \ Problems\.br\ Ongoing - Any problem that you are currently receiving treatment for.\.br\ Anticoagulated\.b r\ Arthritis\.br\ Aspirin long-term use\.br\ BPH with urinary obstruction\.br\ CKD (chronic kidney disease) stage 3, GFR 30-59 ml/min\.br\ Diabetes\.br\ ED (erectile dysfunction)\.br\ Emphysema/COPD\.b r\ Epidermal cyst\.br\ Extreme obesity\.br\ Former smoker\.br\ Heart disease\.br\ Hx of migraine headaches\.br\ Hypercholesteremi a\.br\ Incomplete bladder emptying\.br\ Kidney stones\.br\ Myocardial infarct\.br\ Nocturia\.br\ Prostate hyperplasia with urinary obstruction\.br\ Seborrheic keratoses\.br\ SSS (sick sinus syndrome)\.br\ Urinary urgency\.br\ Historical - Any problem that you are no longer receiving treatment for.\.br\ Acute kidney failure\.br\ Asthma\.br\ CHF (congestive heart failure)\.br\ DM (diabetes mellitus), type 2\.br\ GERD (gastroesophageal reflux disease)\.br\ HTN (hypertension)\.b r\ OA (osteoarthritis)\ .br\ Obesity\.br\ Psoriasis\.br\ Patient Survey\.br\ You may receive a survey via text or e-mail asking about your office visit. Please share your experience with us by completing your survey. We appreciate your feedback and thank you for choosing us for your care.\.br\ Education Materials\.br\ Erectile Dysfunction\.br\ Erectile dysfunction (ED) is the inability to get or keep an erection in order to have sexual intercourse. ED is considered a symptom of an underlying disorder and is not considered a disease. ED may include:\.br\ ? \.br\ Inability to get an erection.\.br\ ? \.br\ Lack of enough hardness of the erection to allow penetration.\.br\ ? \.br\ Loss of erection before sex is finished.\.br\ What are the causes?\.br\ This condition may be caused by:\.br\ ? \.br\ Physical causes, such as:\.br\ ? \.br\ Artery problems. This may include heart disease, high blood pressure, atherosclerosis, and diabetes.\.br\ ? \.br\ Hormonal problems, such as low testosterone.\.br \ ? \.br\ Obesity.\.br\ ? \.br\ Nerve problems. This may include back or pelvic injuries, multiple sclerosis, Parkinson's disease, spinal cord injury, and stroke.\.br\ ? \.br\ Certain medicines, such as:\.br\ ? \.br\ Pain relievers.\.br\ ? \.br\ Antidepressants.\ .br\ ? \.br\ Blood pressure medicines and water pills (diuretics).\.br\ ? \.br\ Cancer medicines.\.br\ ? \.br\ Antihistamines.\. br\ ? \.br\ Muscle relaxants.\.br\ ? \.br\ Lifestyle factors, such as:\.br\ ? \.br\ Use of drugs such as marijuana, cocaine, or opioids.\.br\ ? \.br\ Excessive use of alcohol.\.br\ ? \.br\ Smoking.\.br\ ? \.br\ Lack of physical activity or exercise.\.br\ ? \.br\ Psychological causes, such as:\.br\ ? \.br\ Anxiety or stress.\.br\ ? \.br\ Sadness or depression.\.br\ ? \.br\ Exhaustion.\.br\ ? \.br\ Fear about sexual performance.\.br\ ? \.br\ Guilt.\.br\ What are the signs or symptoms?\.br\ Symptoms of this condition include:\.br\ ? \ [facility] Ambulatory Visit Summary LEIGHTON ARCINIEGA :1945 Visit Date:05/07/2023 Ambulatory Visit Instructions Your Diagnosis BPH with urinary obstruction ED (erectile dysfunction) Your Care Team Attending Physician - Mica Car MD Primary Care Physician - Lori Medina MD This Is Your Medications List Contact prescribing physician if questions or concerns acetaminophen (Tylenol Extra Strength 500 mg oral tablet) allopurinol (allopurinol 300 mg Tab) amlodipine (amLODIPine 10 mg Tab) apixaban (Eliquis 5 mg oral tablet) aspirin (aspirin 325 mg Tab) calcium-vitamin D (calcium-vitamin D 600 mg-400 intl units oral tablet) carvedilol clopidogrel (clopidogrel 75 mg Tab) cyanocobalamin (cyanocobalamin 1000 mcg Tab) diclofenac topical (diclofenac topical 1% gel) empagliflozin (Jardiance 25 mg oral tablet) ferrous sulfate furosemide (furosemide 20 mg Tab) glipiZIDE (glipiZIDE 10 mg Tab) hydrALAZINE (hydrALAZINE 50 mg Tab) insulin glargine (Lantus) liraglutide (Victoza) multivitamin (Multi Vitamins oral tablet) omeprazole (omeprazole 20 mg Cap-DR) semaglutide (Ozempic (1 mg dose)) simvastatin (simvastatin 20 mg Tab) spironolactone (spironolactone 25 mg Tab) terazosin (Hytrin 10 mg Cap) terazosin (terazosin 10 mg Cap) triamcinolone (Triamcinolone Acetonide) valsartan (valsartan 160 mg Tab) Procedures Performed Pacemaker (08/15/2016), Arthroscopy of knee, Colonoscopy, Ring finger Amputation, Tonsillectomy. Discharge Vitals Blood Pressure 132/84 Height 70 in Height 177.8 cm Weight 230.56 lb Weight 104.8 kg BMI 33.15 What to do next Scheduled Follow-Up Appointments 2023 1:30 PM EDT Where: [facility] You Need to Schedule the Following Appointments Follow Up with Josep SANDHU, CHASIDY RichardL, URO When: Comments: 6 mos ([facility]) Where: [address] [place] [address] [phone] Medications What How Much When Instructions Unchanged acetaminophen (Tylenol Extra Strength 500 mg oral tablet) 2 Tablets By Mouth Every day as needed for for pain Contact prescribing physician if questions or concerns Unchanged allopurinol (allopurinol 300 mg Tab) 1 Tablets By Mouth Every day Contact prescribing physician if questions or concerns Unchanged amlodipine (amLODIPine 10 mg Tab) 1 Tablets By Mouth Every day Contact prescribing physician if questions or concerns Unchanged apixaban (Eliquis 5 mg oral tablet) Contact prescribing physician if questions or concerns Unchanged aspirin (aspirin 325 mg Tab) 1 Tablets By Mouth Every day Contact prescribing physician if questions or concerns Unchanged calcium-vitamin D (calcium-vitamin D 600 mg-400 intl units oral tablet) 1 Tablets By Mouth Every day Contact prescribing physician if questions or concerns Unchanged carvedilol 3.125 Milligram By Mouth 2 times a day Contact prescribing physician if questions or concerns Unchanged clopidogrel (clopidogrel 75 mg Tab) 1 Tablets By Mouth Every day Contact prescribing physician if questions or concerns Unchanged cyanocobalamin (cyanocobalamin 1000 mcg Tab) 2 Tablets By Mouth Every day Contact prescribing physician if questions or concerns Unchanged diclofenac topical (diclofenac topical 1% gel) Contact prescribing physician if questions or concerns Unchanged empagliflozin (Jardiance 25 mg oral tablet) By Mouth Once a day (in the morning) Contact prescribing physician if questions or concerns Unchanged ferrous sulfate 325 Milligram By Mouth 2 times a day Contact prescribing physician if questions or concerns Unchanged furosemide (furosemide 20 mg Tab) 1 Tablets By Mouth 2 times a day Contact prescribing physician if questions or concerns Unchanged glipiZIDE (glipiZIDE 10 mg Tab) Contact prescribing physician if questions or concerns Unchanged hydrALAZINE (hydrALAZINE 50 mg Tab) 2 Tablets By Mouth 3 times a day Contact prescribing physician if questions or concerns Unchanged insulin glargine (Lantus) Subcutaneous Every day Contact prescribing physician if questions or concerns Unchanged liraglutide (Victoza) 1.8 Units Subcutaneous Every day Contact prescribing physician if questions or concerns Unchanged multivitamin (Multi Vitamins oral tablet) 1 Tablets By Mouth Every day Contact prescribing physician if questions or concerns Unchanged omeprazole (omeprazole 20 mg Cap-DR) 1 Capsules By Mouth Every day Contact prescribing physician if questions or concerns Unchanged semaglutide (Ozempic (1 mg dose)) 1 Milligram Subcutaneous Every week Contact prescribing physician if questions or concerns Unchanged simvastatin (simvastatin 20 mg Tab) 0.5 Tablets By Mouth Once a day (at bedtime) Contact prescribing physician if questions or concerns Unchanged spironolactone (spironolactone 25 mg Tab) 2 Tablets By Mouth 2 times a day Contact prescribing physician if questions or concerns Unchanged terazosin (Hytrin 10 mg Cap) 1 Capsules By Mouth Every da (more content not included)... Normal [facility] Patient Educationon 05-07-19 Patient Education Urology Erectile Dysfunction Erectile dysfunction (ED) is the inability to get or keep an erection in order to have sexual intercourse. ED is considered a symptom of an underlying disorder and is not considered a disease. ED may include: ? Inability to get an erection. ? Lack of enough hardness of the erection to allow penetration. ? Loss of erection before sex is finished. What are the causes? This condition may be caused by: ? Physical causes, such as: ? Artery problems. This may include heart disease, high blood pressure, atherosclerosis, and diabetes. ? Hormonal problems, such as low testosterone. ? Obesity. ? Nerve problems. This may include back or pelvic injuries, multiple sclerosis, Parkinson's disease, spinal cord injury, and stroke. ? Certain medicines, such as: ? Pain relievers. ? Antidepressants. ? Blood pressure medicines and water pills (diuretics). ? Cancer medicines. ? Antihistamines. ? Muscle relaxants. ? Lifestyle factors, such as: ? Use of drugs such as marijuana, cocaine, or opioids. ? Excessive use of alcohol. ? Smoking. ? Lack of physical activity or exercise. ? Psychological causes, such as: ? Anxiety or stress. ? Sadness or depression. ? Exhaustion. ? Fear about sexual performance. ? Guilt. What are the signs or symptoms? Symptoms of this condition include: ? Inability to get an erection. ? Lack of enough hardness of the erection to allow penetration. ? Loss of the erection before sex is finished. ? Sometimes having normal erections, but with frequent unsatisfactory episodes. ? Low sexual satisfaction in either partner due to erection problems. ? A curved penis occurring with erection. The curve may cause pain, or the penis may be too curved to allow for intercourse. ? Never having nighttime or morning erections. How is this diagnosed? This condition is often diagnosed by: ? Performing a physical exam to find other diseases or specific problems with the penis. ? Asking you detailed questions about the problem. ? Doing tests, such as: ? Blood tests to check for diabetes mellitus or high cholesterol, or to measure hormone levels. ? Other tests to check for underlying health conditions. ? An ultrasound exam to check for scarring. ? A test to check blood flow to the penis. ? Doing a sleep study at home to measure nighttime erections. How is this treated? This condition may be treated by: ? Medicines, such as: ? Medicine taken by mouth to help you achieve an erection (oral medicine). ? Hormone replacement therapy to replace low testosterone levels. ? Medicine that is injected into the penis. Your health care provider may instruct you how to give yourself these injections at home. ? Medicine that is delivered with a short applicator tube. The tube is inserted into the opening at the tip of the penis, which is the opening of the urethra. A tiny pellet of medicine is put in the urethra. The pellet dissolves and enhances erectile function. This is also called MUSE (medicated urethral system for erections) therapy. ? Vacuum pump. This is a pump with a ring on it. The pump and ring are placed on the penis and used to create pressure that helps the penis become erect. ? Penile implant surgery. In this procedure, you may receive: ? An inflatable implant. This consists of cylinders, a pump, and a reservoir. The cylinders can be inflated with a fluid that helps to create an erection, and they can be deflated after intercourse. ? A semi-rigid implant. This consists of two silicone rubber rods. The rods provide some rigidity. They are also flexible, so the penis can both curve downward in its normal position and become straight for sexual intercourse. ? Blood vessel surgery to improve blood flow to the penis. During this procedure, a blood vessel from a different part of the body is placed into the penis to allow blood to flow around (bypass) damaged or blocked blood vessels. ? Lifestyle changes, such as exercising more, losing weight, and quitting smoking. Follow these instructions at home: Medicines ? Take cncy-nkh-nbboxzb and prescription medicines only as told by your health care provider. Do not increase the dosage without first discussing it with your health care provider. ? If you are using self-injections, do injections as directed by your health care provider. Make sure you avoid any veins that are on the surface of the penis. After giving an injection, apply pressure to the injection site for 5 minutes. ? Talk to your health care provider about how to prevent headaches while taking ED medicines. These medicines may cause a sudden headache due to the increase in blood flow in your body. General instructions ? Exercise regularly, as directed by your health care provider. Work with your health care provider to lose weight, if needed. ? Do not use any products that contain nicotine or tobacco. These products include cig (more content not included)... Normal [facility] Urology Office/Clinic Noteon 05-07-2023 Urology Office/Clinic Note Chief Complaint 14 month F/U with PSA HPI Staff Leighton is a 77 y.o. male here for 15 month follow up w/ PSA. [facility] patient. Previous Dx: BPH, CKD, epidermal cyst, kidney stones, nocturia, urinary urgency. No urological procedures. Current PSA 1.6 done on 04/22/23. Previous PSA 01/22/22- 1.17 IPSS 16 AMANDA 1 Dysuria: _denies Incomplete bladder emptying: not always Hematuria: denies visible blood Frequency: every couple hours Urgency: denies Nocturia: once nightly (rarely) Stream: _denies hesitation , weaker side Leaking: denies Post void dripping: occasionally Wearing pads/ Depends: denies Urge incontinence: _denies Stress incontinence: denies Incontinence without Sensory Awareness: _denies Abdominal pain: denies Flank pain: denies Sexual complaints: denies History of Present Illness Tests reviewed: reviewed UA, PSA I have reviewed the previous health record information and history for this patient from Dr. Vargas. I have reviewed and verified the staff HPI to be accurate for this encounter. Review of Systems PHQ Score Initial Depression Screen Score: 0 SCORE ROS - Provider Constitutional: denies weight loss, denies hot flashes. Eyes: denies eye problems. Gastrointestinal: denies nausea, denies vomiting. Cardiovascular: denies chest pain or angina. Integumentary: no dryness Musculoskeletal: denies musculoskeletal symptoms. ENMT: denies otolaryngeal symptoms. Respiratory: no shortness of breath. Heme/Lymph: denies easy bleeding tendency, denies easy bruising tendency. Psychiatric: no confusion, no anxiety. Genitourinary: See HPI. Physical Exam Vitals & Measurements BP: 132/84 HT: 70 in HT: 177.8 cm WT: 104.8 kg WT: 230.56 lb BMI: 33.15 General Appearance: alert, no distress, well nourished, well developed male. Genitourinary: Flank Pain: none. Bladder: nonpalpable. Assessment/Plan Former Dr. Vargas pt here for follow up BPH 1. BPH with urinary obstruction (N40.1: Benign prostatic hyperplasia with lower urinary tract symptoms) S/p Rezum 09/16/16 by RWR. IPSS 16 (7). UA today negative for blood and infection. Not currently taking any BPH meds. States stream has weakened. Discussed prostate grows over time despite prior Rezum procedure. Discussed different treatment options for bladder outlet obstruction including oral medications and repeating operative interventions which would require cysto/TRUS to determine candidacy. Pt would like to proceed with medication first. Discussed the medication side effects, and the patient will monitor closely for these, as well as for symptom improvement. If severe side effects occur, the medication should be stopped and the office notified. PVR 392 mL - said he emptied after giving sample. Advised pt he is not emptying well. Recommended pt to void more often to help empty the bladder and prevent infection. Declined CIC or cath today. PSA 02/10/21 - 1.58 01/22/22 - 1.17 04/22/23 - 1.60 Discussed PSA level w/ pt, remains stable. I discussed stopping the PSA checks due to the PSA stability and his advancing age. He is aware that his chances of developing and having problems from prostate cancer at this point are quite low. He would like to continue PSA monitoring as he would be willing to undergo a prostate biopsy. -Start Tamsulosin 0.4mg qPM. Rx sent to [facility]. Risks/benefits discussed -Timed voids -PVR in 1 month with ANILA. If still elevated despite medical management, will need to schedule cystoscopy with another provider or consider CIC -PSA due in 1 yr 2. ED (erectile dysfunction) (N52.9: Male erectile dysfunction, unspecified) Hx of [place] in 2002. Has pacemaker in place. AMANDA 1. Tried Cialis once - worked. Reports [facility]. Denies taking nitro products. Discussed options for ED, including oral medications, erection pumps, MUSE intraurethral pellet, intracorporal injection therapy, and surgical options. Prefers to retry medication. Discussed the medication side effects, and the patient will monitor closely for these, as well as for symptom improvement. If severe side effects occur, the medication should be stopped and the office notified. -Start Cialis 10mg prn. Can take up to 2 pills at time. Advised pt nitroglycerin is contraindicated. 3. Incomplete bladder emptying (R33.9: Retention of urine, unspecified) See #1. Follow-up With When Contact Information Josep SANDHU, Mica Johsn, URL, [facility] [address] [place] [phone] Additional Instructions: 1 mos w/ PVR Patient Education Erectile Dysfunction I, Kriss Frankel, personally scribed for Dr. Car on 05/07/2023 15:06:02. . Documentation recorded by the scribe, Kriss Frankel, accurately reflects the services(s) I performed and decisions made by me. Authenticated by Dr. Car on 05/07/2023 16:05:51. Problem List/Past Medical History Ongoing Anticoagulated Arthritis Aspirin marshall (more content not included)... Normal [facility] Comment on above: Result Comment: Elec tronically Signed By: Mica Car MD\.br\Date and Time Signed: 05/07/23 16:06 EST\.br\Electronically Co-Signed By: Kriss Frankel\.br\Date and Time Co-Signed: 05/07/23 15:08 EST Consent for Treatmenton Consent for Treatment [id number] #1.00TIFF [facility] Consent for Treatment [id number] #1.00TIFF Normal [facility] Consent for Treatment [id number] #1.00TIFF Normal [facility] Hct & Hgbon 04-22-2023 Hematocrit (Bld) [Volume fraction] 39.0 % Normal 37.7-49.0 [facility] Comment on above: Performed By: #### 1 [id number], [id number], [id number], [id number] ####[facility] [address] [place] [address] Hemoglobin (Bld) [Mass/Vol] 12.5 g/dL Low 13.5-17.5 [facility] Comment on above: Performed By: #### 1 [id number], [id number], [id number], [id number] ####[facility] [address] [place] [address] Magnesiumon 04-22-2023 Magnesium [Mass/Vol] 1.7 mg/dL Normal 1.3-2.4 [facility] Comment on above: Performed By: #### 1 [id number], [id number], [id number], [id number] ####[facility] [address] [place] [address] PSA Totalon 04-22-2023 PSA Total 1.6 ng/mL Normal 0.1-3.5 [facility] Comment on above: Result Comment: The concentration of PSA determined by different manufacturers can vary due to differences in assay methods and reagent specificity. Values obtained from different assay methods cannot be used interchangeably. The methodology used for this result was chemiluminescence using [employer] Access Hybritech PSA reagent. Performed By: #### 1 [id number] ####[facility] [address] [place] [address] Physician Orderon 04-22-2023 Physician Order [id number] 85#1.00TIFF Normal [facility] Physician Order [id number] 28#1.00TIFF Normal [facility] Renal Panelon 04-22-2023 Albumin [Mass/Vol] 3.9 g/dL Normal 3.3-5.0 [facility] Comment on above: Performed By: #### 1 [id number], [id number], 11134088, 4056516 ####[facility] [address] [place] [address] Anion gap [Moles/Vol] 11 mmol/L Normal 6-16 [facility] Comment on above: Performed By: #### 1 [id number], [id number], [id number], [id number] ####[facility] [address] [place] [address] BUN/Creat Ratio 15 No Units Normal 10-20 [facility] Comment on above: Performed By: #### 1 [id number], [id number], 62277169, 0969422 ####[facility] [address] [place] [address] Calcium [Mass/Vol] 9.0 mg/dL Normal 8.9-11.1 [facility] Comment on above: Performed By: #### 1 [id number], [id number], 37601856, 0563384 ####[facility] [address] [place] [address] Chloride [Moles/Vol] 104 mmol/L Normal 101-111 [facility] Comment on above: Performed By: #### 1 [id number], 21634461, 76797671, 2049087 ####[facility] [address] [place] [address] CO2 [Moles/Vol] 29 mmol/L Normal 21-31 [facility] Comment on above: Performed By: #### 1 [id number], [id number], 50984987, 2097826 ####[facility] [address] [place] [address] Creatinine [Mass/Vol] 1.7 mg/dL High 0.5-1.3 [facility] Comment on above: Performed By: #### 1 [id number], 05821989, 74253165, [id number] ####[facility] [address] [address] Glucose [Mass/Vol] 144 mg/dL Normal 55-199 [facility] Comment on above: Performed By: #### 1 [id number], 62375449, 96988198, 2577659 ####[facility] [address] [address] Phosphate [Mass/Vol] 3.0 mg/dL Normal 1.9-4.6 [facility] Comment on above: Performed By: #### 1 [id number], [id number], 33024067, 7400951 ####[facility] [address] [place] [address] Potassium [Moles/Vol] 3.9 mmol/L Normal 3.5-5.3 [facility] Comment on above: Performed By: #### 1 0526976, 26792886, 35538658, 1560924 ####[facility] [address] [facility] [place] [address] Sodium [Moles/Vol] 140 mmol/L Normal 135-145 [facility] Comment on above: Performed By: #### 1 [id number], 57718651, 04900051, 9390759 ####[facility] [address] [facility] [place] [address] Urea nitrogen [Mass/Vol] 26 mg/dL High 5-21 [facility] Comment on above: Performed By: #### 1 [id number], 57201207, 45722100, 9134865 ####[facility] [address] [facility] [place] [address] U Protein/Creat Ratioon 02-0 1-2024 U Creatinine 60.9 mg/dL Invalid Interpretation Code [facility] Comment on above: Performed By: #### 1 [id number] ####[facility] [address] [address] U Prot/Creat Ratio 19.90 mg/gm Cr Normal .00-200.00 [facility] Comment on above: Performed By: #### 1 [id number] ####[facility] [address] [place] [address] Ur Total Protein 12.1 mg/dL Invalid Interpretation Code [facility] Comment on above: Performed By: #### 1 [id number] ####[facility] [address] [place] [address] eGFRon 04-22-2023 eGFR 41 mL/min/1.73 m2 Low >=59 [facility] Comment on above: Order Comment: Order added by Discern Expert. Performed By: #### 1 [id number], [id number], 18231774, 9369360 ####[facility] [address] [place] [address] Office Visit (Cardiology)on 07-01-2022 Follow-up visit Diagnoses/Problems Assessed Atrial fibrillation (427.31) (I48.91) Pacemaker (V45.01) (Z95.0) Mobitz type II atrioventricular block (426.12) (I44.1) Hyperlipidemia (272.4) (E78.5) Essential hypertension (401.9) (I10) Diabetes mellitus (250.00) (E11.9) Cardiomyopathy (425.4) (I42.9) Stage 4 chronic kidney disease (585.4) (N18.4) Sick sinus syndrome (427.81) (I49.5) Class 1 obesity with body mass index (BMI) of 32.0 to 32.9 in adult (278.00,V85.32) (E66.9,Z68.32) Former smoker (V15.82) (Z87.891) quit , 1 PPD Orders Atrial fibrillation Renew: Eliquis 5 MG Oral Tablet; Take 1 tablet twice daily Atrial fibrillation, Cardiomyopathy Renew: Aspirin EC 81 MG Oral Tablet Delayed Release; take 1 weekly Class 1 obesity with body mass index (BMI) of 32.0 to 32.9 in adult Healthy Weight Tips; Status:Complete - Retrospective Authorization; Done: 01Jul2022 Some eating tips that can help you lose weight.; Status:Complete - Retrospective Authorization; Done: 01Jul2022 Essential hypertension Renew: Carvedilol 6.25 MG Oral Tablet; Take 1 tablet twice daily Hyperlipidemia Renew: Simvastatin 20 MG Oral Tablet; TAKE 0.5 TABLET Bedtime SocHx: Former smoker Tobacco Use Screening; Status:Complete; Done: 01Jul2022 Patient Instructions Please bring all medicines, vitamins, and herbal supplements with you when you come to the office. Prescriptions will not be filled unless you are compliant with your follow up appointments or have a follow up appointment scheduled as per instruction of your physician. Refills should be requested at the time of your visit. Patient provided Falls Prevention education sheet. Device check as directed per [facility] protocol Chief Complaint LEIGHTON ARCINIEGA is being seen for a 6-9 month follow-up of. History of Present Illness Patient returns in follow-up of problems as noted. In the interim there have been no clinical events. No symptoms of cardiomyopathy such as orthopnea PND or dyspnea with exertion. Device pacemaker interrogation demonstrates paroxysms of atrial fibrillation adequately addressed with Eliquis. In the future we will reduce the dose because of advancing renal insufficiency Blood pressure and lipids appear to be adequately addressed. Patient has no manifestations of stage IV renal failure at the moment on current medical therapy. Bradycardia arrhythmia diagnoses as listed are all adequately addressed by the pacemaker. 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 Surgical History Problems History of Colonoscopy 22Mar2004 History of Hand surgery History of Nose surgery History of Pacemaker insertion History of Tonsillectomy with adenoidectomy Current Meds Medication NameInstruction Allopurinol 300 MG Oral TabletTAKE 1 TABLET DAILY. amLODIPine Besylate 10 MG Oral TabletTake 1 tablet daily Aspirin EC 81 MG Oral Tablet Delayed Releasetake 1 weekly Calcium 600 + D TABSTAKE 1 TABLET DAILY. Carvedilol 6.25 MG Oral TabletTake 1 tablet twice daily Eliquis 5 MG Oral TabletTake 1 tablet twice daily Furosemide 20 MG Oral TabletTake 1 tablet twice daily hydrALAZINE HCl - 50 MG Oral TabletTAKE 2 TABLET 3 times daily Iron 325 (65 Fe) MG Oral TabletTake 1 tablet twice daily Jardiance 25 MG Oral TabletTAKE 0.5 TABLET Daily Lantus 100 UNIT/ML Subcutaneous SolutionUSE DIRECTED. Multi Vitamin Oral TabletTAKE 1 TABLET DAILY. Omeprazole 20 MG Oral Capsule Delayed ReleaseTAKE 1 CAPSULE DAILY EVERY MORNING BEFORE BREAKFAST. Ozempic (1 MG/DOSE) 2 MG/1.5ML SOPNInject once weekly Simvastatin 20 MG Oral TabletTAKE 0.5 TABLET Bedtime Spironolactone 25 MG Oral TabletTake 1 tablet daily Terazosin HCl - 10 MG Oral CapsuleTAKE 1 CAPSULE Daily Tylenol 325 MG Oral CapsuleTAKE CAPSULE prn Vitamin B12 1000 MCG Oral Tablet Extended ReleaseTAKE 1 TABLET DAILY DIRECTED. Vitamin D3 50 MCG (1999) Oral CapsuleTAKE 1 CAPSULE Daily Allergies Medication enalapril Adverse Reaction; Cough; Recorded By: Dacia Galaviz; 01/20/2021 8:28:34 AM metoprolol Adverse Reaction; Cough; Recorded By: Dacia Galaviz; 01/20/2021 8:28:34 AM Social History Problems Former smoker (V15.82) (Z87.891) quit , 1 PPD No alcohol use No caffeine use No illicit drug use Review of Systems Constitutional: not feeling tired. Eyes: no eyesight problems. ENT: no hearing loss and no nosebleeds. Cardiovascular: no intermittent leg claudication and as noted in HPI. Respiratory: no chronic cough and no shortness of breath. Gastrointestinal: no change in bowel habits and no blood in stools. Genitourinary: no urinary frequency and no hematuria. Skin: no skin rashes. Neurological: no seizures and no frequent falls. Psychiatric: no depression and not suicidal. All other systems have been reviewed and are negative for complaint. Vitals Vital Signs Recorded: 01Jul2022 10: (more content not included)... Normal [employer] Tobacco Screening.on 023 Adult depression screening assessment No [facility] [place]berry[place]yerly 600 DO Work Phone: Fall risk assessment b) One or more falls in the last year [facility] 600 DO Work Phone: Tobacco use status CPHS b) No [facility] 600 DO Work Phone: CBC AUTO DIFFon 05-28-2022 BASO # 0.0 103/ul Normal 0.0-0.1 [facility] Comment on above: Performed By: #### C BC #### [facility] [address] [address] [address] Susie Hale Basophils/100 WBC (Bld) 0.5 % Normal 0.2-2.0 [facility] Comment on above: Performed By: #### C BC #### [facility] [address] [address] [address] Susie Hale EO # 0.1 103/ul Normal 0.0-0.7 [facility] Comment on above: Performed By: #### C BC #### [facility] [address] [address] [address] Susie Hale Eosinophils/100 WBC (Bld) 1.8 % Normal 0.9-7.0 [facility] Comment on above: Performed By: #### C BC #### [facility] [address] [address] [address] Susie Hale Erythrocyte distribution width (RBC) [Ratio] 13.0 % Normal 11.0-15.0 [facility] Comment on above: Performed By: #### C BC #### [facility] [address] [place] [address] Dr. Susie Hale Hematocrit (Bld) [Volume fraction] 35.0 % Critically low 42.0-54.0 [facility] Comment on above: Performed By: #### C BC #### [facility] [address] [place] [address] Dr. Susie Hale Hemoglobin (Bld) [Mass/Vol] 12.2 g/dL Critically low 14.0-18.0 [facility] Comment on above: Performed By: #### C BC #### [facility] [address] [address] [address] Susie Hale IG # 0.05 10e3/ul Critically high 0.00-0.03 [facility] Comment on above: Performed By: #### C BC #### [facility] [address] [address] [address] Susie Hale IG % 0.8 % Critically high 0.0-0.5 [facility] Comment on above: Performed By: #### C BC #### [facility] [address] [address] [address] Susie Hale LYMPH # 1.9 103/ul Normal 1.2-3.8 [facility] Comment on above: Performed By: #### C BC #### [facility] [address] [place] [address] Dr. Susie Hale Lymphocytes/100 WBC (Bld) 28.7 % Normal 20.5-60.0 [facility] Comment on above: Performed By: #### C BC #### [facility] [address] [place] [address] Dr. Susie Hale MANUAL DIFF REQ NO Normal [facility] Comment on above: Performed By: #### C BC #### [facility] [address] [place] [address] Dr. Susie Hale MCH (RBC) [Entitic mass] 32.1 pg Normal 25.9-34.0 [facility] Comment on above: Performed By: #### C BC #### [facility] [address] [place] [address] Dr. Susie Hale MCHC (RBC) [Mass/Vol] 34.9 g/dL Normal 29.9-35.2 [facility] Comment on above: Performed By: #### C BC #### [facility] [address] [place] [address] Dr. Susie Hale MCV (RBC) [Entitic vol] 92.1 fL Normal 80.0-94.0 [facility] Comment on above: Performed By: #### C BC #### [facility] [address] [place] [address] Dr. Susie Hale MONO # 0.7 103/ul Normal 0.3-0.8 [facility] Comment on above: Performed By: #### C BC #### [facility] [address] [place] [address] Dr. Susie Hale Monocytes/100 WBC (Bld) 10.9 % Normal 1.7-12.0 [facility] Comment on above: Performed By: #### C BC #### [facility] [address] [place] [address] Dr. Susie Hale NEUT # 3.7 103/ul Normal 1.4-6.5 [facility] Comment on above: Performed By: #### C BC #### [facility] [address] [place] [address] Dr. Susie Hale Neutrophils/100 WBC (Bld) 57.3 % Normal 43.0-75.0 [facility] Comment on above: Performed By: #### C BC #### [facility] [address] [place] [address] Dr. Susie Hale Platelet mean volume (Bld) [Entitic vol] 8.5 fL Critically low 9.5-13.5 [facility] Comment on above: Performed By: #### C BC #### [facility] [address] [place] [address] Dr. Susie Hale PLT 238 103/ul Normal 150-450 [facility] Comment on above: Performed By: #### C BC #### [facility] [address] [place] [address] Dr. Susie Hale RBC 3.80 106/ul Critically low 4.70-6.10 [facility] Comment on above: Performed By: #### C BC #### [facility] [address] [place] [address] Dr. Susie Hale WBC 6.5 103/ul Normal 4.0-11.0 [facility] Comment on above: Performed By: #### C BC #### [facility] [address] [place] [address] STROKE HEAD WOon 05-29-19 CT STROKE HEAD WO NONCONTRAST CT SCAN OF THE HEAD CT STROKE HEAD WO HISTORY: Dizziness TECHNIQUE: Multiple axial images are taken from the level the vertex down to the base of the skull without the use of IV contrast. Images were then reconstructed in the sagittal and coronal planes. This exam was performed according to our departmental dose-optimization program which includes use of Automated Exposure Control, adjustment of the mA and/or kV according to patient size and/or use of iterative reconstruction technique. COMPARISON: None. FINDINGS: Brain Parenchyma: No intracranial mass. No intracranial hemorrhage. [place]-white matter within expected limits of normal for patient's age. Posterior fossa: Normal. Midline shift: None Extra-axial fluid collection: None Ventricles: Normal. Mastoid air cells: Normal. Sinuses: Minimal mucosal thickening in the ethmoid and left frontal sinus.. Cranium: No depressed skull fracture. Nasal septum deviates to the left but this is not acute. Soft tissues: Normal. Orbits: Orbits demonstrate postoperative changes from prior cataract resection with prosthetic lens implant. IMPRESSION: 1. No noncontrast CT evidence for acute intracranial pathology. 2. If symptoms continue and if clinically indicated, MRI may help better delineate. Electronically authenticated by: MAILE CANO Date: 2022-05-28 18:17 Normal [facility] PROF 14(COMP METB)on 023 Albumin [Mass/Vol] 3.5 g/dL Normal 3.4-5.0 [facility] Comment on above: Performed By: #### C MP #### [facility] [address] [place] [address] Dr. Susie Hale Albumin/Globulin [Mass ratio] 1.1 {ratio} Normal [facility] Comment on above: Performed By: #### C MP #### [facility] [address] [address] [address] Susie Hale ALP [Catalytic activity/Vol] 87 U/L Normal 46-116 [facility] Comment on above: Performed By: #### C MP #### [facility] [address] [address] [address] Susie Hale ALT [Catalytic activity/Vol] 16 U/L Normal 16-63 [facility] Comment on above: Performed By: #### C MP #### [facility] [address] [address] [address] Susie Hale Anion gap [Moles/Vol] 10.0 mmol/L Normal [facility] Comment on above: Performed By: #### C MP #### [facility] [address] [address] [address] Susie Hale AST [Catalytic activity/Vol] 14 U/L Critically low 15-37 [facility] Comment on above: Performed By: #### C MP #### [facility] [address] [address] [address] Susie Hale Bilirubin [Mass/Vol] 0.2 mg/dL Normal 0.2-1.0 [facility] Comment on above: Performed By: #### C MP #### [facility] [address] [address] [address] Susie Hale Calcium [Mass/Vol] 8.9 mg/dL Normal 8.5-10.1 [facility] Comment on above: Performed By: #### C MP #### [facility] [address] [address] [address] Susie Hale Chloride [Moles/Vol] 105 mmol/L Normal 98-107 [facility] Comment on above: Performed By: #### C MP #### [facility] [address] [address] [address] Susie Hale CO2 [Moles/Vol] 25.7 mmol/L Normal 21.0-32.0 [facility] Comment on above: Performed By: #### C MP #### [facility] [address] [address] [address] Susie Hale Creatinine [Mass/Vol] 1.87 mg/dL Critically high 0.70-1.30 [facility] Comment on above: Performed By: #### C MP #### [facility] [address] [address] [address] Susie Hale EGFR-AF TAIWANESE 43 mL/min/1.73m2 Critically low >=60 [facility] Comment on above: Performed By: #### C MP #### [facility] [address] [address] [address] Susie Hale EGFR-NON AF TAIWANESE 35 mL/min/1.73m2 Critically low >=60 [facility] Comment on above: Performed By: #### C MP #### [facility] [address] [address] [address] Susie Hale Globulin (S) [Mass/Vol] 3.2 g/dL Normal [facility] Comment on above: Performed By: #### C MP #### [facility] [address] [address] [address] Susie Hale Glucose [Mass/Vol] 256 mg/dL Critically high 74-106 [facility] Comment on above: Performed By: #### C MP #### [facility] [address] [place], [place] [address] Dr. Susie Hale Potassium [Moles/Vol] 3.7 mmol/L Normal 3.5-5.1 [facility] Comment on above: Performed By: #### C MP #### [facility] [address] [place], [place] [address] Dr. Susie Hale Protein [Mass/Vol] 6.7 g/dL Normal 6.4-8.2 [facility] Comment on above: Performed By: #### C MP #### [facility] [address] [place], [place] [address] Dr. Susie Hale Sodium [Moles/Vol] 137 mmol/L Normal 136-145 [facility] Comment on above: Performed By: #### C MP #### [facility] [address] [place], [place] [address] Dr. Susie Hale Urea nitrogen [Mass/Vol] 22.0 mg/dL Critically high 7.0-18.0 [facility] Comment on above: Performed By: #### C MP #### [facility] [address] [place], [place] [address] Dr. Susie Hale Urea nitrogen/Creatinin e [Mass ratio] 11.8 mg/mg Normal [facility] Comment on above: Performed By: #### C MP #### [facility] [address] [place], [place] [address] Dr. Susie Hale Office Visit (Cardiology)on 12-16-2021 Follow-up visit Diagnoses/Problems Assessed Cardiomyopathy (425.4) (I42.9) Essential hypertension (401.9) (I10) Hyperlipidemia (272.4) (E78.5) Mobitz type II atrioventricular block (426.12) (I44.1) Pacemaker (V45.01) (Z95.0) Diabetes mellitus (250.00) (E11.9) Stage 4 chronic kidney disease (585.4) (N18.4) Sick sinus syndrome (427.81) (I49.5) Atrial fibrillation (427.31) (I48.91) Class 1 obesity with body mass index (BMI) of 33.0 to 33.9 in adult (278.00,V85.33) (E66.9,Z68.33) Former smoker (V15.82) (Z87.891) quit , 1 PPD Orders Atrial fibrillation Renew: Eliquis 5 MG Oral Tablet; Take 1 tablet twice daily Atrial fibrillation, Cardiomyopathy Start: Aspirin EC 81 MG Oral Tablet Delayed Release; take 1 weekly Class 1 obesity with body mass index (BMI) of 33.0 to 33.9 in adult Healthy Weight Tips; Status:Complete; Done: [id number] Some eating tips that can help you lose weight.; Status:Complete; Done: [id number] Essential hypertension Renew: Carvedilol 6.25 MG Oral Tablet; Take 1 tablet twice daily Hyperlipidemia Renew: Simvastatin 20 MG Oral Tablet; TAKE 0.5 TABLET Bedtime SocHx: Former smoker Tobacco Use Screening; Status:Complete; Done: [id number] Unlinked Stop: Aspirin 325 MG Oral Tablet Delayed Release Stop: Clopidogrel Bisulfate 75 MG Oral Tablet Patient Instructions Please bring all medicines, vitamins, and herbal supplements with you when you come to the office. Prescriptions will not be filled unless you are compliant with your follow up appointments or have a follow up appointment scheduled as per instruction of your physician. Refills should be requested at the time of your visit. Device check as directed per [facility] protocol Follow up in 6-9 months Chief Complaint LEIGHTON ARCINIEGA is being seen for a 6-9 month follow-up of. History of Present Illness Patient returns in follow-up of problems as noted. In the interim he is done well. He denies any angina heart failure or arrhythmia symptomatology. Recent pacemaker checks demonstrate that he is having frequent episodes of atrial fibrillation and because of this I recommended that he change his aspirin to once per week and that he stop Plavix. We will in its place initiate Eliquis therapy which I believed to be superior at mitigating stroke risk associated with his atrial fibrillation. Treatment of other risk factors including hypertension and hyperlipidemia is reviewed and felt to be adequate and appropriate. He does have renal insufficiency which is followed by nephrology. Because of this the dosage of Eliquis provided will be reduced accordingly. He denies any orthopnea PND or dyspnea exertion that he had in the past associated with his nonischemic cardiomyopathy and we believe his heart failure is also well compensated. Lastly we advocated the merits of diet and weight loss. Surgical History Problems History of Colonoscopy 22Mar2004 History of Hand surgery History of Nose surgery History of Pacemaker insertion History of Tonsillectomy with adenoidectomy Current Meds Medication NameInstruction Allopurinol 300 MG Oral TabletTAKE 1 TABLET DAILY. amLODIPine Besylate 10 MG Oral TabletTake 1 tablet daily Aspirin 325 MG Oral Tablet Delayed ReleaseTake 1 tablet daily Calcium 600 + D TABSTAKE 1 TABLET DAILY. Carvedilol 6.25 MG Oral TabletTake 1 tablet twice daily Clopidogrel Bisulfate 75 MG Oral TabletTake 1 tablet daily Furosemide 20 MG Oral TabletTake 1 tablet twice daily hydrALAZINE HCl - 50 MG Oral TabletTAKE 2 TABLET 3 times daily Iron 325 (65 Fe) MG Oral TabletTake 1 tablet twice daily Lantus 100 UNIT/ML Subcutaneous SolutionUSE DIRECTED. Multi Vitamin Oral TabletTAKE 1 TABLET DAILY. Omeprazole 20 MG Oral Capsule Delayed ReleaseTAKE 1 CAPSULE DAILY EVERY MORNING BEFORE BREAKFAST. Ozempic (1 MG/DOSE) 2 MG/1.5ML SOPNInject once weekly Simvastatin 20 MG Oral TabletTAKE 0.5 TABLET Bedtime Spironolactone 25 MG Oral TabletTAKE 2 TABLET Daily Terazosin HCl - 10 MG Oral CapsuleTAKE 1 CAPSULE Daily Tylenol 325 MG Oral CapsuleTAKE CAPSULE prn Vitamin B12 1000 MCG Oral Tablet Extended ReleaseTAKE 1 TABLET DAILY DIRECTED. Vitamin D3 50 MCG (1999 [place]) Oral CapsuleTAKE 1 CAPSULE Daily Allergies Medication enalapril Adverse Reaction; Cough; Recorded By: Dacia Galaviz; 01/20/2021 8:28:34 AM metoprolol Adverse Reaction; Cough; Recorded By: Dacia Galaviz; 01/20/2021 8:28:34 AM Social History Problems Former smoker (V15.82) (Z87.891) quit , 1 PPD No alcohol use No caffeine use No illicit drug use Review of Systems Constitutional: not feeling tired. Eyes: no eyesight problems. ENT: no hearing loss and no nosebleeds. Cardiovascular: no intermittent leg claudication and as noted in HPI. Respiratory: no chronic cough and no shortness of breath. Gastrointestinal: no change in bowel habits and no blood in stools. Genitourinary: no urinary frequency and no hematuria. Skin: no skin r (more content not included)... Normal [employer] Tobacco Screening.on 022 Adult depression screening assessment No [facility] 600 DO Work Phone: Fall risk assessment a) No falls within the last year -[facility] 600 DO Work Phone: Tobacco use status CP b) No -[facility] 600 DO Work Phone: PSA Total (Not a Screen)on 04-12-2020 PSA Total (Not a Screen) 1.580 ng/mL Normal 0.000-4.000 [facility] Comment on above: Result Comment: PERF ORMED BY: [place] [address] PATHOLOGIST THREADING MACHINE TENDER ROB BAY M.D. Performed By: #### P SATOTAL #### [address] Tobacco Screening.on 021 Fall risk assessment a) No falls within the last year -[facility] [facility] 250 DO Work Phone: Tobacco use status CPHS b) No -[facility] 250 DO Work Phone: Vital Signs Date Time Vital Sign Value Performing Clinician Rody ace 03-01-2024 11:12-0500 Body height 177.8 cm Osvaldo Dickinson MD Work Phone: [facility] 03-01-2024 11:12-0500 Body mass index (BMI) [Ratio] 30.13 kg/m2 Osvaldo Dickinson MD Work Phone: [facility] 03-01-2024 11:12-0500 Body weight 95.25 kg Osvaldo Dickinson MD Work Phone: [facility] 03-01-2024 11:12-0500 Diastolic blood pressure 54 mm[Hg] Osvaldo Dickinson MD Work Phone: [facility] 03-01-2024 11:12-0500 Heart rate 71 /min Osvaldo Dickinson MD Work Phone: [facility] 03-01-2024 11:12-0500 Systolic blood pressure 114 mm[Hg] Osvaldo Dickinson MD Work Phone: [facility] 12-14-2023 13:17-0400 Diastolic blood pressure 70 mm[Hg] Dank Robert DO Work Phone: [facility] 12-14-2023 13:17-0400 Heart rate 68 /min Dank Robert DO Work Phone: [facility] 12-14-2023 13:17-0400 SaO2% (BldA) [Mass fraction] 97 % Dank Robert DO Work Phone: [facility] 12-14-2023 13:17-0400 Systolic blood pressure 152 mm[Hg] Dank Robert DO Work Phone: [facility] 08-25-2023 12:12-0400 Body height 177.8 cm Varghese Caal MD Work Phone: [facility] 08-25-2023 12:12-0400 Body mass index (BMI) [Ratio] 33.43 kg/m2 Varghese Caal MD Work Phone: [facility] 08-25-2023 12:12-0400 Body weight 105.69 kg Varghese Caal MD Work Phone: [facility] 08-25-2023 12:12-0400 Diastolic blood pressure 54 mm[Hg] Varghese Caal MD Work Phone: [facility] 08-25-2023 12:12-0400 Heart rate 60 /min Varghese Caal MD Work Phone: [facility] 08-25-2023 12:12-0400 Systolic blood pressure 126 mm[Hg] Varghese Caal MD Work Phone: [facility] 02-10-2023 11:37-0500 Body height 177.8 cm Varghese Caal MD Work Phone: [facility] 02-10-2023 11:37-0500 Body mass index (BMI) [Ratio] 32.28 kg/m2 Varghese Caal MD Work Phone: [facility] 02-10-2023 11:37-0500 Body weight 102.06 kg Varghese Caal MD Work Phone: [facility] 02-10-2023 11:37-0500 Diastolic blood pressure 58 mm[Hg] Varghese Caal MD Work Phone: [facility] 02-10-2023 11:37-0500 Heart rate 63 /min Varghese Caal MD Work Phone: [facility] 02-10-2023 11:37-0500 Systolic blood pressure 120 mm[Hg] Varghese Caal MD Work Phone: [facility] 07-01-2022 10:54-0400 Body height 177.8 cm Andrea Espinoza Work Phone: [facility] 600 DO Work Phone: 07-01-2022 10:54-0400 Body mass index (BMI) [Ratio] 32.71 kg/m2 Andrea Espinoza Work Phone: [facility] 600 DO Work Phone: 07-01-2022 10:54-0400 Body surface area Derived from formula 2.21 m2 Andrea Espinoza Work Phone: [facility] 600 DO Work Phone: 07-01-2022 10:54-0400 Body weight 103.42 kg Andrea Espinoza Work Phone: [facility] 600 DO Work Phone: 07-01-2022 10:54-0400 Diastolic blood pressure 64 mm[Hg] Andrea Espinoza Work Phone: [facility] 600 DO Work Phone: 07-01-2022 10:54-0400 Heart rate 72 /min Andrea Vasquezroh Work Phone: [facility] 600 DO Work Phone: 07-01-2022 10:54-0400 Systolic blood pressure 118 mm[Hg] Andrea Vasquezroh Work Phone: [facility] 600 DO Work Phone: 12-16-2021 11:08-0400 Body height 177.8 cm Andrea Vasquezroh Work Phone: [facility] 600 DO Work Phone: 12-16-2021 11:08-0400 Body mass index (BMI) [Ratio] 33.86 kg/m2 Andrea Vasquezroh Work Phone: [facility] 600 DO Work Phone: 12-16-2021 11:08-0400 Body surface area Derived from formula 2.24 m2 Andrea Vasquezroh Work Phone: [facility] 600 DO Work Phone: 12-16-2021 11:08-0400 Body weight 107.05 kg Andrea Vasquezroh Work Phone: [facility] 600 DO Work Phone: 12-16-2021 11:08-0400 Diastolic blood pressure 64 mm[Hg] Andrea Vasquezroh Work Phone: [facility] 600 DO Work Phone: 12-16-2021 11:08-0400 Heart rate 72 /min Andrea Vasquezroh Work Phone: [facility] 600 DO Work Phone: 12-16-2021 11:08-0400 Systolic blood pressure 132 mm[Hg] Andrea Espinoza Work Phone: [facility] 600 DO Work Phone: 01-22-2021 14:36-0400 Body height 177.8 cm Andrea Espinoza Work Phone: [facility] 250 DO Work Phone: 01-22-2021 14:36-0400 Body mass index (BMI) [Ratio] 34.01 kg/m2 Andrea Espinoza Work Phone: [facility] 250 DO Work Phone: 01-22-2021 14:36-0400 Body surface area Derived from formula 2.24 m2 Andrea Espinoza Work Phone: [facility] 250 DO Work Phone: 01-22-2021 14:36-0400 Body weight 107.5 kg Andrea Espinoza Work Phone: [facility] 250 DO Work Phone: 01-22-2021 14:36-0400 Diastolic blood pressure 54 mm[Hg] Andrea Espinoza Work Phone: [facility] 250 DO Work Phone: 01-22-2021 14:36-0400 Heart rate 76 /min Andrea Espinoza Work Phone: [facility] 250 DO Work Phone: 01-22-2021 14:36-0400 Systolic blood pressure 104 mm[Hg] Andrea Espinoza Work Phone: [facility] 250 DO Work Phone: Encounters Encounter Date Encounter Type Care Provider Facility Start: 03-02-2024 End: 03-02-2024 ambulatory NATA TA Facility:FERNANDO Ribeiro Start: 03-01-2024 End: 03-01-2024 Office outpatient visit 25 minutes Osvaldo Dickinson MD Work Phone: [facility] Comment on above: Paroxysmal atrial fi brillation (Multi) (Primary Dx); Sick sinus syndrome (Multi); Pacemaker; Essential hypertension; Cardiomyopathy, unspecified type (Multi); Mixed hyperlipidemia; Stage 4 chronic kidney disease (Multi); Non-smoker; BMI 30.0-30.9,adult Start: 03-01-2024 End: 03-01-2024 ambulatory [facility] Ambulatory Start: 02-19-2024 End: 02-19-2024 Emergency department patient visit LORI Vallejo Fan [facility] Start: 02-18-2024 End: 02-18-2024 ambulatory Mica Car Facility:[facility] Start: 02-14-2024 End: 02-14-2024 ambulatory Mica Car Facility:[facility] Start: 01-31-2024 End: 01-31-2024 ambulatory Anna Sr Facility:[facility] Start: 01-24-2024 End: 01-24-2024 Emergency department patient visit BOBO Yip ELIDIA [facility] Start: 01-17-2024 End: 01-17-2024 Office outpatient visit 25 minutes Blanca Alonso MD Work Phone: [facility] Comment on above: Other atopic dermati tis (Primary Dx); Seborrheic keratosis; Lentigines; History of SCC (squamous cell carcinoma) of skin Start: 01-17-2024 End: 01-17-2024 ambulatory BLANCA ALONSO Not Available Start: 12-27-2023 End: 12-27-2023 ambulatory Mica Car Facility:[facility] Start: 12-14-2023 End: 12-14-2023 Bamboo flowsheet Dank Jones DO Work Phone: [facility] [address] Start: 12-14-2023 End: 12-14-2023 Bamboo flowsheet Dank Jones DO [facility] [address] Start: 12-14-2023 End: 12-14-2023 Office outpatient visit 25 minutes Dank Jones DO Work Phone: [facility] Comment on above: VIRGILIO (obstructive sle ep apnea) (Primary Dx); Hypersomnia; PLMD (periodic limb movement disorder); Obesity due to excess calories, unspecified classification, unspecified whether serious comorbidity present; Snoring Start: 12-14-2023 End: 12-14-2023 ambulatory DANK JONES Not Available Start: 12-09-2023 End: 12-09-2023 ambulatory Varghese Caal Facility:[facility] Start: 11-12-2023 End: 11-12-2023 ambulatory Mica Car Facility: [place] Start: 10-14-2023 End: 10-14-2023 Emergency department patient visit Vini Quinteros Facility:[facility] Start: 10-14-2023 ambulatory Barb Loza Fa cility:[facility] Start: 08-31-2023 End: 08-31-2023 ambulatory BLANCA A PETITTI Not Available Start: 08-25-2023 End: 08-25-2023 Office outpatient visit 25 minutes Varghese Caal MD Work Phone: [facility] Comment on above: Essential hypertensi on (Primary Dx); Sick sinus syndrome (Multi); Mixed hyperlipidemia; Paroxysmal atrial fibrillation (Multi); Dilated cardiomyopathy (Multi); Pacemaker; BMI 33.0-33.9,adult Start: 08-25-2023 End: 08-25-2023 [facility] Start: 08-10-2023 End: 08-10-2023 ambulatory BLANCA A PETITTI Not Available Start: 06-16-2023 End: 06-16-2023 ambulatory NAPOLEON TA Facility:[facility] [place] Start: 05-07-2023 End: 05-07-2023 ambulatory Mica Car Facility: [place] Start: 04-22-2023 End: 04-22-2023 ambulatory Varghese Caal Facility:[facility] Start: 03-19-2023 End: 03-19-2023 ambulatory BLANCA PETITTI Not Available Start: 03-05-2023 End: 03-05-2023 ambulatory BLANCA A PETITTI Not Available Start: 02-10-2023 End: 02-10-2023 Office outpatient visit 25 minutes Varghese Caal MD Work Phone: [facility] Comment on above: Sick sinus syndrome (CMS/HCC) (Primary Dx); Mobitz type II atrioventricular block; Pacemaker; Essential hypertension; Dilated cardiomyopathy (CMS/HCC); Paroxysmal atrial fibrillation (CMS/HCC) Start: 10-22-[address] Andrea Espinoza Facility: Start: 07-01-2022 Office outpatient vi sit 25 minutes Andrea Espinoza Work Phone: [facility] 600 DO Work Phone: Start: 07-01-[address] Varghese Caal II Facility: Start: 05-28-2022 End: 05-28-[address] TRINO Lange Facility:[facility] Start: 05-14-2022 End: 05-15-2022 ambulatory MARIXA ROY Facility:[facility] Start: 04-23-[address] Andrea Espinoza Facility: Start: 12-31-2021 Rx Renewal Andrea Espinoza Work Phone: [facility] 250 DO Work Phone: Start: 12-16-2021 Office outpatient vi sit 25 minutes Andrea [facility]za [facility] Work Phone: Start: 12-16-[address] Varghese Caal II Facility: Start: 01-22-2021 Office outpatient vi sit 25 minutes Andrea Espinoza Work Phone: [facility] 250 DO Work Phone: Procedures Date Procedure Procedure Detail Performing Clinician Start: 03-01-2024 Ecg routine ecg w/le ast 12 lds w/i&r Osvaldo Dickinson MD Work Phone: Colonoscopy Andrea Espinoza Work Phone: Comment on above: [id number]; Insertion of pacemak er pulse generator Andrea Espinoza Work Phone: Operation on nose Andrea Patel Suggsh Work Phone: Operative procedure on hand Andrea Espinoza Work Phone: Tonsillectomy and adenoidectomy Andrea Espinoza Work Phone: Plan of Treatment Date Care Activity Detail Author Start: 12-09-2032 DTaP/Tdap/Td Vaccine s (2 - Td or Tdap) DTaP/Tdap/Td Vaccines (2 - Td or Tdap) [facility] Start: 01-25-2025 End: 01-25-2025 Patient encounter procedure 01/25/2025 1:05 PM EST Office Visit [facility] [address] [place] [address] Blanca Alonso MD [address] [place] [address] [facility] Start: 12-12-2024 End: 12-12-2024 Patient encounter procedure 12/12/2024 1:00 PM EDT Office Visit [facility] [place] [address] [place] [address] Rox Cervantes NP [address] [place], [place] [facility] [address] Start: 11-28-2024 Glaucoma screening Diabetes: R etinopathy Screening [facility] Start: 11-07-2024 End: 11-07-2024 Patient encounter procedure 11/07/2024 10:30 AM EDT Office Visit [place] [address] [place] [id number] Osvaldo Dickinson MD [address] [facility] [place] [facility] [address] [place] [address] [facility] Start: 04-06-2024 ambulatory Ambulatory Facility:E Karina Blankenship Start: 03-01-2024 End: 03-01-2024 Patient encounter procedure 03/01/2024 11:00 AM EST Office Visit [address] [place] [address] Osvaldo Dickinson MD [address] [facility] [facility] [address] [place] [address] [facility] Start: 01-17-2024 End: 01-17-2024 Patient encounter procedure 01/17/2024 3:15 PM EDT Office Visit [facility] [address] [place] [id number] Blanca Alonso MD [address] [place] [address] [facility] Start: 12-14-2023 End: 12-14-2023 Patient encounter procedure 12/14/2023 1:30 PM EDT Office Visit [facility] [place] [address] [place] [phone] Dank Jones DO [address] [place] [address] Arrived [facility] [place] [address] Comment on above: Arrived Start: 12-01-2023 Glaucoma screening Diabetes: R etinopathy Screening [facility] Start: 08-25-2023 End: 08-25-2023 Patient encounter procedure 08/25/2023 11:40 AM EDT Office Visit [address] [place] [address] Varghese Caal MD [address] [facility] [place] [facility] [address] [place] [address] [facility] Start: 06-05-2023 COVID-19 Vaccine () COVID-19 Vaccine () [facility] Start: 04-01-2023 COVID-19 Vaccine (6 - Moderna series) COVID-19 Vaccine (6 - Moderna series) [facility] Start: 02-10-2023 FUV, Provider: Varghese Caal, Status: Pen, Time: 11:30 AM FUV, Provider: Varghese Caal, Status: Pen, Time: 11:30 AM -[facility] 600 DO Work Phone: Start: 07-01-2022 FUV, Provider: Varghese Caal, Status: Pen, Time: 10:40 AM FUV, Provider: Varghese Caal, Status: Pen, Time: 10:40 AM -[facility] 600 DO Work Phone: Start: 09-10-2021 FUV, Provider: Varghese Caal, Status: Pen, Time: 2:30 PM FUV, Provider: Varghese Caal, Status: Pen, Time: 2:30 PM -[facility] 250 DO Work Phone: Start: 2020 RSV High Risk: (Elde rly (60+) or Population) (1 - 1-dose 75+ series) RSV High Risk: (Elderly (60+) or Population) (1 - 1-dose 75+ series) [facility] Start: 05-09-2020 Echocardiography E[facility]ocardiogram [facility] Start: 2005 RSV patient s and/or patients aged 60+ years (1 - 1-dose 60+ series) RSV patients and/or patients aged 60+ years (1 - 1-dose 60+ series) [facility] Start: 11-26-1995 Zoster Vaccines (1 of 2) Zoste r Vaccines (1 of 2) [facility] Start: 1964 Urine screening for protein Diabetes: Urine Protein Screening [facility] Start: 11-26-1963 Hepatitis C screening Hepatitis C Sc reening [facility] Start: 11-26-1955 Diabetic foot examination Diabetes: Foot Exam [facility] Start: 11-26-1955 Glaucoma screening Diabetes: R etinopathy Screening [facility] Start: 1945 Creatinine measurement Creatinine Le sarah [facility] Start: 1945 Hemoglobin A1c measurement Jennifer nicolasa: Hemoglobin A1C [facility] Start: 1945 Lipid panel Lipid Panel [facility] Start: 1945 Medicare Annual Well ness Visit Medicare Annual Wellness Visit (AWV) [facility] Start: 1945 Potassium measurement Potassium Leve l [facility] Immunizations Immunization Date Immunization Notes Care Provider Severo snede 01-14-2022 Fluad Quadrivalent 0 .5 ML Intramuscular Prefilled Syringe Andrea Patel Pedroemmazulay Work Phone: [facility] 600 DO Work Phone: 01-14-2022 Pfizer COVID-19 Vac Bivalent 30 MCG/0.3ML Intramuscular Suspension Andrea Amanda [employer]em[employer] Work Phone: [facility] 600 DO Work Phone: 09-03-2021 pneumococcal conjuga te vaccine, 13 valent Dank Robert DO Work Phone: [facility] 02-15-2021 Moderna COVID-19 Vac cine 100 MCG/0.5ML Intramuscular Suspension Andrea Patel [employer] Work Phone: [facility] 600 DO Work Phone: 01-30-2021 influenza virus vacc ine, unspecified formulation Andrea Patel Pedroemma Work Phone: [facility] 600 DO Work Phone: 11-28-2020 influenza, high dose seasonal, preservative-free Andrea Amanda [employer] Work Phone: [facility] 250 DO Work Phone: Comment on above: Series: 06-20-2020 Moderna COVID-19 Vac cine 100 MCG/0.5ML Intramuscular Suspension Andrea Patel Celso Work Phone: [facility] 600 DO Work Phone: 05-20-2020 Moderna COVID-19 Vac cine 100 MCG/0.5ML Intramuscular Suspension Andrea Espinoza Work Phone: [facility] 250 DO Work Phone: Comment on above: Series: 04-25-2020 Moderna COVID-19 Vac cine 100 MCG/0.5ML Intramuscular Suspension Andrea Espinoza Work Phone: [facility] 250 DO Work Phone: Comment on above: Series: 12-21-2019 influenza virus vacc ine, unspecified formulation Andrea Espinoza Work Phone: [facility] 600 DO Work Phone: 12-20-2018 influenza, high dose seasonal, preservative-free Andrea Patel Pedroemmazulay Work Phone: [facility] 02-19-2018 influenza virus vacc ine, unspecified formulation Andrea Espinoza Work Phone: [facility] 600 DO Work Phone: 02-19-2018 pneumococcal polysaccharide vaccine, 23 valent Andrea Amanda Pedroemmazulay Work Phone: [facility] 250 DO Work Phone: Comment on above: Series: 02-19-2018 pneumococcal vaccine , unspecified formulation Andrea Patel Pedroemmazulay Work Phone: [facility] 02-18-2017 Influenza, injectabl e, Madin [place] Canine Kidney, preservative free, quadrivalent Andrea Patel Leana Work Phone: [facility] 600 DO Work Phone: 11-24-2016 influenza, high dose seasonal, preservative-free Andrea Patel Pedroemma Work Phone: [facility] 600 DO Work Phone: 12-21-2015 pneumococcal conjuga te vaccine, 13 valent Andrea Espinoza Work Phone: [facility] 250 DO Work Phone: Comment on above: Series: Payers Date Payer Category Payer Medicare [id number] 2022 [employer] ( and others) [id number] 2022 () [id number] 2022 For Life (TFL) F OR LIFE [id number] 2022 [employer] ( and others) [id number] 2010 Medicare [id number]. [id number] 1959 [employer] ( and others) [id number] 1959 Medicare [id number] 1945 Unknown [id number] 2.16.840.1.145068.3.579. 2.593 1945 Unknown [id number] 2.16.840.1.114242.3.579. 2.593 1945 Unknown [id number] 2.16.840.1.729059.3.579. 2.356 1945 Unknown [id number] 2.16.840.1.581944.3.579. 2.356 1945 Unknown [id number] 2.16.840.1.304168.3.579. 2.356 1945 Unknown [id number] 2.16.840.1.277629.3.579. 2.356 1945 Unknown [id number] 2.16.840.1.214162.3.579. 2.727 1945 Unknown [id number] 2.16.840.1.391121.3.579. 2.727 1945 Unknown [id number] 2.16.840.1.531657.3.579. 2.727 1945 Unknown [id number] 2.16.840.1.868242.3.579. 2.727 1945 Unknown [id number] 2.16.840.1.040059.3.579. 2.727 1945 Unknown [id number] 2.16.840.1.788416.3.579. 2.727 1945 Unknown [id number] 2.16.840.1.845956.3.579. 2.727 1945 Unknown [id number] 2.16.840.1.537241.3.579. 2.727 1945 Unknown [id number] 2.16.840.1.242857.3.579. 2.1259 1945 Unknown [id number] 2.16.840.1.182496.3.579. 2.1259 1945 Unknown [id number] 2.16.840.1.162380.3.579. 2.1259 1945 Unknown [id number] 2.16.840.1.780837.3.579. 2.1259 1945 Unknown [id number] 2.16.840.1.123900.3.579. 2.1259 1945 Unknown [id number] 2.16.840.1.913697.3.579. 2.1259 1945 Unknown [id number] 2.16.840.1.676060.3.579. 2.1286 1945 Unknown [id number] 2.16.840.1.683003.3.579. 2.1286 1945 Unknown [id number] 2.16.840.1.697667.3.579. 2.727 1945 Unknown [id number] 2.16.840.1.461109.3.579. 2.727 1945 Unknown [id number] 2.16.840.1.869747.3.579. 2.727 1945 Unknown [id number] 2.16.840.1.523868.3.579. 2.727 1945 Unknown [id number] 2.16.840.1.296141.3.579. 2.727 1945 Unknown [id number] 2.16.840.1.011739.3.579. 2.727 1945 Unknown [id number] 2.16.840.1.149906.3.579. 2.727 1945 Unknown [id number] 2.16840.1.438301.3.579. 2.1244 1945 Unknown [id number] 2.16.840.1.024516.3.579. 2.1244 Unknown Social History Date Type Detail Facility Start: 02-10-2023 End: 12-14-2023 No illicit drug use No illicit drug use -[facility] [address] DO Work Phone: Comment on above: quit , 1 PPD; Start: 02-10-2023 End: 08-25-2023 Tobacco smoking status NHIS Ex-smoker [facility] Work Phone: End: 03-22-1992 History of tobacco use Current smoker [facility] Work Phone: End: 03-22-1992 History of tobacco use Cigarette Smoker [facility] Work Phone: Start: 10-11-2022 End: 02-10-2023 Tobacco use and exposure Smokeless tobacco non-user [facility] Work Phone: Start: 02-10-2023 End: 12-14-2023 Alcohol intake Lifetime non-drinker (finding) [facility] Work Phone: Start: 02-10-2023 End: 12-14-2023 Tobacco use panel [facility] Work Phone: Start: 1945 Sex Assigned At Not on file U [facility] Work Phone: Start: 01-31-2023 End: 03-01-2024 Exposure to SARS-CoV-2 (event) Not sure [facility] Start: 10-11-2022 Tobacco smoking stat us GAIS Never smoked tobacco [facility] Clinical Notes 05-14-2022 to 03-02-2024 Osvaldo Dickinson MD - 03/01/2024 11:00 AM ESTPatient InstructionsEmguilherme Alonso MD - 01/17/2024 3:15 PM Letty Jones DO - 12/14/2023 1:30 PM EDTPatient InstructionsPatient Instructions Note Date & Type Note Facility 03-02-2024 Note Patient Education Urology Acute Urinary Retention, Male Acute urinary retention is a condition in which a person is unable to pass urine or can only pass a little urine. This condition can happen suddenly and last for a short time. If left untreated, it can become long-term (chronic) and result in kidney damage or other serious complications. What are the causes? This condition may be caused by: ??? Obstruction or narrowing of the tube that drains the bladder (urethra). This may be caused by surgery, problems with nearby organs, or injury to the bladder or urethra. ??? Problems with the nerves in the bladder. ??? Tumors in the area of the pelvis, bladder, or urethra. ??? Certain medicines. ??? Bladder or urinary tract infection. ??? Constipation. What increases the risk? This condition is more likely to develop in older men. As men age, their prostate may become larger and may start to press or squeeze on the bladder or the urethra. Other chronic health conditions can increase the risk of acute urinary retention. These include: ??? Diseases such as multiple sclerosis. ??? Spinal cord injuries. ??? Diabetes. ??? Degenerative cognitive conditions, such as delirium or dementia. ??? Psychological conditions. A man may hold his urine due to trauma or because he does not want to use the bathroom. What are the signs or symptoms? Symptoms of this condition include: ??? Trouble urinating. ??? Pain in the lower abdomen. How is this diagnosed? This condition is diagnosed based on a physical exam and your medical history. You may also have other tests, including: ??? An ultrasound of the bladder or kidneys or both. ??? Blood tests. ??? A urine analysis. ??? Additional tests may be needed, such as a CT scan, MRI, and kidney or bladder function tests. How is this treated? Treatment for this condition may include: ??? Medicines. ??? Placing a thin, sterile tube (catheter) into the bladder to drain urine out of the body. This is called an indwelling urinary catheter. After it is inserted, the catheter is held in place with a small balloon that is filled with sterile water. Urine drains from the catheter into a collection bag outside of the body. ??? Behavioral therapy. ??? Treatment for other conditions. If needed, you may be treated in the hospital for kidney function problems or to manage other complications. Follow these instructions at home: Medicines ??? Take yvqf-aip-dvuuiow and prescription medicines only as told by your health care provider. Avoid certain medicines, such as decongestants, antihistamines, and some prescription medicines. Do not take any medicine unless your health care provider approves. ??? If you were prescribed an antibiotic medicine, take it as told by your health care provider. Do not stop using the antibiotic even if you start to feel better. General instructions ??? Do not use any products that contain nicotine or tobacco. These products include cigarettes, chewing tobacco, and vaping devices, such as e-cigarettes. If you need help quitting, ask your health care provider. ??? Drink enough fluid to keep your urine pale yellow. ??? If you have an indwelling urinary catheter, follow the instructions from your health care provider. ??? Monitor any changes in your symptoms. Tell your health care provider about any changes. ??? If instructed, monitor your blood pressure at home. Report changes as told by your health care provider. ??? Keep all follow-up visits. This is important. Contact a health care provider if: ??? You have uncomfortable bladder contractions that you cannot control (spasms). ??? You leak urine with the spasms. Get help right away if: ??? You have chills or a fever. ??? You have blood in your urine. ??? You have a catheter and the following happens: ? Your catheter stops draining urine. ? Your catheter falls out. Summary ??? Acute urinary retention is a condition in which a person is unable to pass urine or can only pass a little urine. If left untreated, this condition can result in kidney damage or other serious complications. ??? An enlarged prostate may cause this condition. As men age, their prostate gland may become larger and may press or squeeze on the bladder or the urethra. ??? Treatment for this condition may include medicines and placement of an indwelling urinary catheter. ??? Monitor any changes in your symptoms. Tell your health care provider about any changes. This information is not intended to replace advice given to you by your health care provider. Make sure you discuss any questions you have with your health care provider. Document Revised: 11/27/2020 Document Reviewed: 11/27/2020 [employer] Patient Education ? 2023 [employer]. [facility] 03-01-2024 History of Present illness Narrative Subjective Leighton Arciniega is a 78 y.o. male Chief Complaint Follow-up HPI Patient is here for follow-up continue management for history of sick sinus syndrome, status post pacemaker implantation, paroxysmal atrial fibrillation hyperlipidemia and hypertension. Since last time he was seen by Dr. Caal the patient denies any cardiac complaint. He report he was in the hospital for bladder infection. His last device check showed appropriate device function. He continued to have occasional episodes of breakthrough arrhythmia. Assessment 1. Sick sinus syndrome status post permanent pacemaker implantation 7 years ago with appropriate device function 2. Essential hypertension 3. Paroxysmal atrial fibrillation 4. Mixed hyperlipidemia 5. Long-term anticoagulation with Eliquis 6. BMI 30 Plan 1. I advised the patient to continue present medical regimen 2. Risk, benefit and alternative anticoagulation reviewed with patient at length he understood and agreed 3. Patient is scheduled to have a device check in the near future 4. I will try to retrieve his recent lab work from [facility] 5. I will see him back in 9 months Review of Systems All other systems reviewed and are negative. Vitals: 03/01/24 1112 BP: 114/54 BP Location: Left arm Patient Position: Sitting Pulse: 71 Weight: 95.3 kg (210 lb) Height: 1.778 m (5' 10 ) Objective Physical Exam Constitutional: Appearance: Normal appearance. HENT: Nose: Nose normal. Neck: Vascular: No carotid bruit. Cardiovascular: Rate and Rhythm: Normal rate. Pulses: Normal pulses. Heart sounds: Normal heart sounds. Pulmonary: Effort: Pulmonary effort is normal. Abdominal: General: Bowel sounds are normal. Palpations: Abdomen is soft. Musculoskeletal: General: Normal range of motion. Cervical back: Normal range of motion. Right lower leg: No edema. Left lower leg: No edema. Skin: General: Skin is warm and dry. Neurological: General: No focal deficit present. Mental Status: He is alert. Psychiatric: Mood and Affect: Mood normal. Behavior: Behavior normal. Thought Content: Thought content normal. Judgment: Judgment normal. Allergies Enalapril and Metoprolol Current Medications Current Outpatient Medications: acetaminophen (TylenoL) 325 mg capsule, Take 1 capsule (325 mg) by mouth every 6 hours if needed., Disp: , Rfl: allopurinol (Zyloprim) 300 mg tablet, Take 1 tablet (300 mg) by mouth once daily., Disp: , Rfl: amLODIPine (Norvasc) 10 mg tablet, Take 1 tablet (10 mg) by mouth once daily., Disp: , Rfl: apixaban (Eliquis) 5 mg tablet, Take 1 tablet (5 mg) by mouth 2 times a day., Disp: , Rfl: aspirin 81 mg EC tablet, Take 1 tablet (81 mg) by mouth 1 (one) time per week., Disp: , Rfl: CALCIUM CARBONATE-VITAMIN D3 ORAL, Take 1 tablet by mouth once daily., Disp: , Rfl: carvedilol (Coreg) 6.25 mg tablet, Take 1 tablet (6.25 mg) by mouth 2 times a day., Disp: , Rfl: cyanocobalamin, vitamin B-12, (Vitamin B-12) 1,000 mcg tablet extended release, Take 1 tablet (1,000 mcg) by mouth once daily., Disp: , Rfl: diclofenac sodium (Voltaren) 1 % gel, if needed., Disp: , Rfl: empagliflozin (Jardiance) 25 mg, Take 0.5 tablets (12.5 mg) by mouth once daily., Disp: , Rfl: ferrous sulfate, 325 mg ferrous sulfate, tablet, Take 1 tablet (325 mg) by mouth 2 times a day., Disp: , Rfl: furosemide (Lasix) 20 mg tablet, Take 1 tablet (20 mg) by mouth 2 times a day., Disp: , Rfl: glipiZIDE (Glucotrol) 5 mg tablet, Take 1 tablet (5 mg) by mouth. 5 mg at breakfast 10 mg at dinner (Patient taking differently: Take 2 tablets (10 mg) by mouth. 5 mg at breakfast 10 mg at dinner), Disp: , Rfl: hydrALAZINE (Apresoline) 50 mg tablet, Take 1 tablet (50 mg) by mouth 3 times a day., Disp: , Rfl: insulin glargine (Lantus U-100 Insulin) 100 unit/mL injection, Inject under the skin., Disp: , Rfl: multivitamin tablet, Take 1 tablet by mouth once daily., Disp: , Rfl: omeprazole (PriLOSEC) [address] capsule, Take 1 capsule (20 mg) by mouth once daily in the morning. Take before meals., Disp: , Rfl: semaglutide (Ozempic) 1 mg/dose (2 mg/1.5 mL) pen injector, Inject 1 mg under the skin 1 (one) time per week., Disp: , Rfl: sildenafil (Viagra) 100 mg tablet, take 1 tablet by mouth 1 hour prior to intercourse if needed, Disp: , Rfl: simvastatin (Zocor) 20 mg tablet, Take 0.5 tablets (10 mg) by mouth once daily at bedtime., Disp: , Rfl: spironolactone (Aldactone) 25 mg tablet, Take 1 tablet (25 mg) by mouth once daily., Disp: , Rfl: tacrolimus (Protopic) 0.1 % ointment, 2 times a day., Disp: , Rfl: terazosin (Hytrin) 10 mg capsule, Take 1 capsule (10 mg) by mouth once daily., Disp: , Rfl: triamcinolone (Kenalog) 0.1 % lotion, Apply topically 3 times a day., Disp: , Rfl: Assessment/Plan 1. Paroxysmal atrial fibrillation (Multi) ECG 12 Lead 2. Sick sinus syndrome (Multi) Follow Up In Cardiology 3. Pacemaker 4. Essential hypertension 5. Cardiomyopathy, unspecified type (Multi) Follow Up In Cardiology 6. Mixed hyperlipidemia 7. Stage 4 chronic kidney disease (Multi) 8. Non-smoker 9. BMI 30.0-30.9,adult Scribe Attestation By signing my name below, Betzaida Heredia LPN, Scribe attest that this documentation has been prepared under the direction and in the presence of Osvaldo Dickinson MD. Provider Attestation - Scribe documentation All medical record entries made by the Scribe were at my direction and personally dictated by me. I have reviewed the chart and agree that the record accurately reflects my personal performance of the history, physical exam, discussion and plan. documented in this encounter [facility] Work Phone: 03-01-2024 Instructions Betzaida Denney LPN - 03/01/2024 11:00 AM EST Please bring all medicines, vitamins, and herbal supplements with you when you come to the office. Prescriptions will not be filled unless you are compliant with your follow up appointments or have a follow up appointment scheduled as per instruction of your physician. Refills should be requested at the time of your visit. 8-9 months Pacemaker/Defibrillator follow up per routine BMI was above normal measurement. Current weight: 95.3 kg (210 lb) Weight change since last visit (-) denotes wt loss -23 lbs Weight loss needed to achieve BMI 25: 36.1 Lbs Weight loss needed to achieve BMI 30: 1.4 Lbs Provided instructions on dietary changes Provided instructions on exercise. documented in this encounter [facility] Work Phone: 02-14-2024 Note Patient Education Rezum Post-Procedure Instructions General Recommendations 1. Drink some extra fluids (water preferred) for the first few days following the procedure. Avoid alcohol and caffeine until your irritative symptoms have resolved. 2. Take the medication as prescribed by your doctor. Usually this will include an antibiotic, pain medication or antispasmodic if needed. 3. Avoid lifting heavy objects (>10 lbs) or excessive straining as this may cause bleeding in the first week after surgery. 4. Catheter instructions: ??? You will go home with a Gomez catheter attached to a catheter bag. ??? Follow your doctor???s instructions. 5. You may resume your normal diet. Common Treatment Related Symptoms The following are common treatment related signs and symptoms that you may experience after the procedure. They may also occur following removal of the catheter. After the procedure, your general urinary symptoms may temporarily worsen and then gradually improve. 1. Blood in the Urine. It is common to see some blood in the urine for 1 to 2 weeks. Limit any physical activities and drink some extra water to flush the bladder but you do not need to drink excessively or be alarmed. If you think the bleeding is excessive or you are having trouble urinating, call the number below. 2. Painful Urination. It is common to have some pain or burning with urination for 1 to 2 weeks. It should gradually improve. If it persists or starts to worsen, call the number below. 3. Slow Urinary Stream. After the procedure, swelling of the prostate occurs which may or may not make the urinary stream weaker. This should gradually improve. If you are having a lot of difficulty trying to urinate or cannot urinate, call your doctor. 4. Urinary Urgency, Frequency or Leakage. You may experience frequency and/or a strong urge to urinate while the prostate heals. Sometimes, you may find the urge is so strong that it is difficult to hold your urine and leakage can occur. 6. Blood in the Semen. This may occur up to several weeks following the procedure. The semen may have red or a ???reynold??? color. This condition will almost always resolve without any treatment. You should not be alarmed. Frequently Asked Questions Your Treating Doctor may override these recommendations. You should follow his/her instructions. 1. When can I resume normal physical activities? You may resume your daily activities immediately. You should limit vigorous workouts such as bike riding, running, treadmills, and heavy weight lifting for the first week. If you experience any bleeding, limit your activities and increase your water intake. 2. When can I resume sexual activity? In general, once you do not see any blood in the urine you may resume sexual activity. You may experience blood in the semen as described in the ???Common Treatment Related Symptoms??? section. 3. When can I resume my medications including blood thinners? In general, you should continue with any of your regular medications but check with your doctor. Typically, you can resume any blood thinners immediately post procedure but check with your doctor. 4. When can I go back to work? In general, you can return to work the following day. If you are taking pain medication (narcotics) or have a physical job (lifting, construction work, etc.), check with your doctor. 5. When can I have an alcoholic beverage? You should avoid any alcohol until your irritative symptoms have resolved, typically 1-2 weeks. Alcohol is a bladder irritant and can worsen your symptoms. You should also follow the instructions regarding alcohol intake on the labels of your prescription medication. Contact your Doctor Immediately If you experience: 1. Fever (oral temperature ? 101?F), chills ??? may be signs of an infection. 2. Inability to urinate. 3. Foul smelling or cloudy urine. 4. While there may be some pain related to the procedure, it is usually not severe. If you are experiencing severe pain or any condition you think may be serious, call your doctor. 5. If unable to contact your physician and you feel it is an emergency, go to the nearest emergency room or call 911. Gomez Catheter Care, Male A Gomez catheter is a soft, flexible tube that is placed into the bladder to drain urine. The catheter has a balloon to hold it inside the bladder. A Gomez catheter may be inserted if: ??? You leak urine or are not able to control when you urinate (urinary incontinence). ??? You are not able to urinate when you need to (urinary retention). ??? You had prostate surgery or surgery on the genitals. ??? You have certain medical conditions, such as multiple sclerosis, dementia, or a spinal cord injury. To Prevent Infection: 1. Wash your hands with soap and water before and after handling your catheter. 2. Using mild soap and warm water on a clean washcloth; twice a day. ??? Clean the area on your body closest to the c (more content not included)... [facility] 01-31-2024 Note Patient Education Urology Acute Urinary Retention, Male Acute urinary retention is a condition in which a person is unable to pass urine or can only pass a little urine. This condition can happen suddenly and last for a short time. If left untreated, it can become long-term (chronic) and result in kidney damage or other serious complications. What are the causes? This condition may be caused by: ??? Obstruction or narrowing of the tube that drains the bladder (urethra). This may be caused by surgery, problems with nearby organs, or injury to the bladder or urethra. ??? Problems with the nerves in the bladder. ??? Tumors in the area of the pelvis, bladder, or urethra. ??? Certain medicines. ??? Bladder or urinary tract infection. ??? Constipation. What increases the risk? This condition is more likely to develop in older men. As men age, their prostate may become larger and may start to press or squeeze on the bladder or the urethra. Other chronic health conditions can increase the risk of acute urinary retention. These include: ??? Diseases such as multiple sclerosis. ??? Spinal cord injuries. ??? Diabetes. ??? Degenerative cognitive conditions, such as delirium or dementia. ??? Psychological conditions. A man may hold his urine due to trauma or because he does not want to use the bathroom. What are the signs or symptoms? Symptoms of this condition include: ??? Trouble urinating. ??? Pain in the lower abdomen. How is this diagnosed? This condition is diagnosed based on a physical exam and your medical history. You may also have other tests, including: ??? An ultrasound of the bladder or kidneys or both. ??? Blood tests. ??? A urine analysis. ??? Additional tests may be needed, such as a CT scan, MRI, and kidney or bladder function tests. How is this treated? Treatment for this condition may include: ??? Medicines. ??? Placing a thin, sterile tube (catheter) into the bladder to drain urine out of the body. This is called an indwelling urinary catheter. After it is inserted, the catheter is held in place with a small balloon that is filled with sterile water. Urine drains from the catheter into a collection bag outside of the body. ??? Behavioral therapy. ??? Treatment for other conditions. If needed, you may be treated in the hospital for kidney function problems or to manage other complications. Follow these instructions at home: Medicines ??? Take [id number] and prescription medicines only as told by your health care provider. Avoid certain medicines, such as decongestants, antihistamines, and some prescription medicines. Do not take any medicine unless your health care provider approves. ??? If you were prescribed an antibiotic medicine, take it as told by your health care provider. Do not stop using the antibiotic even if you start to feel better. General instructions ??? Do not use any products that contain nicotine or tobacco. These products include cigarettes, chewing tobacco, and vaping devices, such as e-cigarettes. If you need help quitting, ask your health care provider. ??? Drink enough fluid to keep your urine pale yellow. ??? If you have an indwelling urinary catheter, follow the instructions from your health care provider. ??? Monitor any changes in your symptoms. Tell your health care provider about any changes. ??? If instructed, monitor your blood pressure at home. Report changes as told by your health care provider. ??? Keep all follow-up visits. This is important. Contact a health care provider if: ??? You have uncomfortable bladder contractions that you cannot control (spasms). ??? You leak urine with the spasms. Get help right away if: ??? You have chills or a fever. ??? You have blood in your urine. ??? You have a catheter and the following happens: ? Your catheter stops draining urine. ? Your catheter falls out. Summary ??? Acute urinary retention is a condition in which a person is unable to pass urine or can only pass a little urine. If left untreated, this condition can result in kidney damage or other serious complications. ??? An enlarged prostate may cause this condition. As men age, their prostate gland may become larger and may press or squeeze on the bladder or the urethra. ??? Treatment for this condition may include medicines and placement of an indwelling urinary catheter. ??? Monitor any changes in your symptoms. Tell your health care provider about any changes. This information is not intended to replace advice given to you by your health care provider. Make sure you discuss any questions you have with your health care provider. Document Revised: 11/27/2020 Document Reviewed: 11/27/2020 [employer] Patient Education ? 2023 [employer] Benign Prostatic Hyperplasia Benign prostatic hyperplasia (BPH) is an enlarged prostate gland that is caused by the normal aging proc (more content not included)... [facility] 01-17-2024 History of Present illness Narrative Images from the original note were not included. Skin Check Location: Patient requests a skin examination from the waist up Dermatologic history: history of Actinic Keratosis, history of Squamous Cell Carcinoma Last visit: 1 year ago (last skin exam) Follow up Diagnosis: erythema intertrigo Location: left axilla Last visit: 08/2023 Symptoms: red, itchy Status: still comes and goes Treatments tried and failed: TAC cream 0.025%, OTC hydrocortisone, Terbinafine cream 1% from the [place] Current treatment: nystatin powder, tacrolimus 0.1% ointment bid Established patient All pertinent medical history, medications, and allergies were reviewed. General Exam: alert, oriented to person, place, and time, normal affect, well appearing Unaccompanied A complete skin exam was offered, pt declined. Areas not examined despite medical recommendation: From the waist down Scalp, Examined , exam limited by hair Head, Face Examined Neck Examined Chest Examined Back Examined Abdomen Examined Right arm Examined Left arm Examined Hands Examined Digits,nails: Examined Lymphatics: Not examined 1. Other atopic dermatitis Left Axilla Scaly erythematous plaques +/- dyspigmentation, lichenification, excoriations. Flaring today Discussed that atopic dermatitis is a chronic condition that can be controlled but not cured. Discontinue Protopic 0.1% ointment and Nystatin powder. Start Opzelura cream every day prn when flared, hold if smooth/asymptomatic. Encouraged daily moisturizing and gentle cleansers to prevent flares. Notify office if flaring despite treatment. Patient would benefit from nonsteroidal given intertriginous involvement, topical steroids contraindicated for longterm use in this area and he has already tried/failed protopic, triamcinolone, hydrocortisone. Ruxolitinib Phosphate (Opzelura) 1.5 % cream - Left Axilla Apply to affected areas, twice a day when flared, 30 day supply 2. Seborrheic keratosis (2) Head - Anterior (Face), Torso - Posterior (Back) Stuck on verrucous, cole-brown papules and plaques. Patient was counseled regarding these benign growths. Removal is normally not necessary, but they may be removed if they are symptomatic or for cosmetic reasons. 3. Lentigines Head - Anterior (Face) Scattered cole macules in sun-exposed areas. The patient was informed that lentigines are benign pigmented lesions that occur on sun-exposed and sun-damaged skin. No treatment is necessary. Recommended regular use of broad spectrum sunscreen SPF 30 or higher 4. History of SCC (squamous cell carcinoma) of skin Right Forearm No evidence of recurrence at SCC scar. The patient was counseled that scars from excisional sites of nonmelanoma skin cancers should be monitored closely for recurrence. The patient was instructed to contact the office for any new, changing, or symptomatic moles. The patient was also instructed to contact the office for any new lesions that develop within or around the previous surgery scar. Next Visit: 1 year documented in this encounter [facility] 12-27-2023 Note Progress Note-Asaf tapia Patient: LEIGHTON ARCINIEGA Age: 78 years Sex: Male : 1945 Associated Diagnoses: None Author: Josep SANDHU, Mica Johns Health Status Allergies: Allergic Reactions (Selected) Severity Not Documented Monopril- Dry cough. Strawberries- Rash. Tomatoes- Rash. Nonallergic Reactions (Selected) Severity Not Documented Metoprolol- Hypotension., Allergies (4) Active Severity Reaction Monopril Dry cough metoprolol Hypotension Tomatoes rash Strawberries rash Current medications: (Selected) Prescriptions Prescribed Cipro 500 mg Tab: 500 mg = 1 tab(s), Oral, q12hr, Start day prior to procedure, X 3 day(s), # 6 tab(s), Refills(s) 0, Pharmacy: [facility] #[id number], 177, cm, 12/27/23 11:02:00 EDT, Height/Length Dosing, 104, kg, 12/27/23 11:02:00 EDT, Weight Dosing [place] 325 mg-5 mg oral tablet: 1 tab(s), Oral, q6hr for pain, 4 tab(s), Refill(s) 0, Take 1 tablet an hour before procedure, post procedure prn, [facility] #[id number], 177, cm, 12/27/23 11:02:00 EDT, Height/Length Dosing, 104, kg, 12/27/23 11:02:00 EDT, Weight Dosing sildenafil 100 mg Tab: 100 mg = 1 tab(s), Oral, As Directed, PRN for erectile dysfunction, Take one tab 1 hour prior to sexual activity., # 30 tab(s), Refills(s) 3, Pharmacy: [facility] #[id number], 177.8, cm, 06/16/23 10:18:00 EDT, Height/Length Dosing, 104.8, kg, 06/16/23 10:18:... terazosin 10 mg Cap: 10 mg = 1 cap(s), Oral, Once a day (at bedtime), # 90 cap(s), Refills(s) 3, Pharmacy: [facility], 177, cm, 12/27/23 11:02:00 EDT, Height/Length Dosing, 104, kg, 12/27/23 11:02:00 EDT, Weight Dosing traMADOL 50 mg Tab: 50 mg = 1 tab(s), Oral, q6hr, Take as needed for pain., # 6 tab(s), Refills(s) 0, Pharmacy: [facility] #[id number], 177.8, cm, 11/12/23 15:35:00 EDT, Height/Length Dosing, 104.8, kg, 11/12/23 15:35:00 EDT, Weight Dosing Documented Medications Documented Eliquis 5 mg oral tablet: Refills(s) 0 Jardiance 25 mg oral tablet: mg tab(s), Oral, qAM, Refills(s) 0 Lantus: SubCutaneous, Daily, Refills(s) 0 Multi Vitamins oral tablet: 1 tab(s), Oral, Daily, Refill(s) 0 Ozempic (1 mg dose): 1 mg, SubCutaneous, qWeek, Refills(s) 0 Triamcinolone Acetonide: Refills(s) 0 Tylenol Extra Strength 500 mg oral tablet: 1,000 mg = 2 tab(s), Oral, Daily, PRN for pain, # 120 tab(s), Refills(s) 0 Victoza: 1.8 unit(s), SubCutaneous, Daily, Refills(s) 0 allopurinol 300 mg Tab: 300 mg = 1 tab(s), Oral, Daily, # 30 tab(s), Refills(s) 0 amLODIPine 10 mg Tab: 10 mg = 1 tab(s), Oral, Daily, Refills(s) 0 aspirin 325 mg Tab: 325 mg = 1 tab(s), Oral, Daily, Refills(s) 0 calcium-vitamin D 600 mg-400 intl units oral tablet: 1 tab(s), Oral, Daily carvedilol: 3.125 mg, Oral, BID, Refills(s) 0 clopidogrel 75 mg Tab: 75 mg = 1 tab(s), Oral, Daily cyanocobalamin 1000 mcg Tab: 2,000 microgram = 2 tab(s), Oral, Daily, Refills(s) 0 diclofenac topical 1% gel: Refill(s) 0 ferrous sulfate: 325 mg, Oral, BID, Refills(s) 0 furosemide 20 mg Tab: 20 mg = 1 tab(s), Oral, BID, Refills(s) 0 glipiZIDE 10 mg Tab: Refills(s) 0 hydrALAZINE 50 mg Tab: 100 mg = 2 tab(s), Oral, TID omeprazole 20 mg Cap-DR: 20 mg = 1 cap(s), Oral, Daily simvastatin 20 mg Tab: 10 mg = 0.5 tab(s), Oral, Once a day (at bedtime), # 30 tab(s), Refills(s) 0 spironolactone 25 mg Tab: 50 mg = 2 tab(s), Oral, BID, Refills(s) 0 valsartan 160 mg Tab: 160 mg = 1 tab(s), Oral, Daily Impression and Plan Assessment and Plan: Diagnosis: Prostate hyperplasia with urinary obstruction ([id number] N40.1, Discharge, Medical), Feeling of incomplete bladder emptying ([id number] R39.14, Working, Medical), Anticoagulated ([id number] Z79.01, Discharge, Medical). 78 yo male here for cysto/TRUS for sizing for BPH with LUTS 1. Feeling of Incomplete bladder emptying PVR (cc): 05/07/23 - 392 (felt empty after, declined CIC or cath) 06/16/23 - 114 11/12/23 - 90 Bothered by this along with intermittent weak stream. Worse on tamsulosin than terazosin. Would like to switch back. Had relief after Rezum 2016, would like outlet procedure done again for some relief. Discussed risk and benefits of management options including medical optimization (including adding finasteride finasteride) versus procedure (candidate for UroLift, Rezum and TURP). Tolerated Rezum well in the past and would like to undergo this again understanding this may recur in the future. Patient was not on blood thinners at that time, but now is. Discussed elevated risk of bleeding especially a few weeks after procedure when tissue is removed sloughs off. -Will schedule Rezum under local. Will send antibiotics and Valium prior to procedure. Will need driver service technician. The procedural risks, benefits, details, and treatment alternatives have been discussed with the patient. These include bleeding, infection, continued problems urinating, increased frequency with urgency during the healing process, painful urination, need for indwelling cathete (more content not included)... [facility] Comment on above: Result Comment: Elec tronically Signed By: Josep SANDHU, Mica Johns\.br\Date and Time Signed: 12/27/23 12:43 EDT 12-27-2023 Note Patient Education Cystoscopy ? Voiding after the procedure: there may be some pain, burning, urgency, frequency and blood tinged urine following the procedure. These symptoms usually resolve within 2-5 days. Drink the amount of fluid it takes to keep the urine pink to yellow or clear in color. Drinking enough water and fluids will help to ease any discomfort after your procedure. ? If you are having problems that seem out of the ordinary, please call. ? If unable to contact your physician and you feel it is an emergency, go to the nearest emergency room or call 911 ? Diet ? you may resume your normal diet. ? Activity ? you may resume your normal activities ? Call if you have a fever over 100 degrees. [facility] 12-14-2023 History of Present illness Narrative Images from the original note were not included. Chief Complaint Patient presents with Sleep Apnea Subjective Leighton Arciniega, 78 y.o., male HPI Leighton is doing well since last visit. He denies any issues with his new machine. He is sleeping well. She averages 8-9 hours of sleep per night. He does need new supplies. NO other new medical issues. NO issues with the mask. Overall feels rested during the day. He is not exercising. Past Medical History: Diagnosis Date Actinic keratosis COPD (chronic obstructive pulmonary disease) (CMS/HCC) Coronary heart disease (CMS/HCC) Diabetes mellitus, type 2 (CMS/HCC) HTN (hypertension) (CMS/HCC) Hx of psoriasis Kidney disease [place] (myocardial infarction) (CMS/HCC) VIRGILIO (obstructive sleep apnea) Pacemaker Squamous cell skin cancer Past Surgical History: Procedure Laterality Date AMPUTATION CARDIAC PACEMAKER PLACEMENT FINGER AMPUTATION KNEE SURGERY Left KNEE SURGERY Left arthroscopy TONSILLECTOMY Family History Problem Relation Name Age of Onset Hypertension Mother Heart disease Mother Diabetes Mother Melanoma Neg Hx Social History Tobacco Use Smoking status: Never Smokeless tobacco: Never Substance Use Topics Alcohol use: Never Allergies: Fosinopril and Metoprolol General: No fever or chills HEENT: No nasal congestion or runny nose Pulmonary: No shortness of breath or cough Cardiovascular: No chest pain or palpitations GI: No nausea or vomiting : No dysuria or hematuria Musculoskeletal: No new aches or pains or muscle weakness Infectious: no recurrent fevers or infections Dermatologic: No rashes or skin lesions Neurologic: No new headaches or dizziness Vitals: 12/14/23 1317 BP: 152/70 Pulse: 68 SpO2: 97% There is no height or weight on file to calculate BMI. Neurologic exam: General: Normal body habitus, cooperative, pleasant Mental status: Awake, alert to person, place and time. Recent and remote memory are intact. Attention and concentration are normal. Fund of knowledge is appropriate for level of education. HEENT: NC/AT Cranial nerves: CN II: Visual mendoza full to confrontation. No loss of vision CN III, IV, : pupils equal round and reactive to light. Extraocular movements intact. No ptosis present. CN V: Facial sensation is normal. CN VII: Full and symmetric facial movement. CN VIII: Hearing is normal CN IX and X: Palate elevates symmetrically. CN XI: Shoulder shrug is normal bilaterally. CN XII: Tongue is midline without atrophy or fasciculation. Speech: Clear and fluent no aphasia or dysarthria Pronator drift: Negative bilateral upper extremity Coordination: Intact, no signs of dysmetria Good finger to nose and rapid alternating movements Sensory: Sensation is intact to light, temperature and vibratory touch throughout four extremities. Motor: LUE 5/5 RUE 5/5 LLE 5/5 RLE 5/5 Tone: Physiologic, no tremor, bradykinesia or rigidity DTR: Bilateral Biceps 2/4 Bilateral BR 2/4 Bilateral Patellar 2/4 No spasticity Gait: Normal to casual gait Romberg's Negative Review and summary of old records: Assessment/Plan Diagnoses and all orders for this visit: VIRGILIO (obstructive sleep apnea) - CPAP ORDERS Lifetime Hypersomnia PLMD (periodic limb movement disorder) Obesity due to excess calories, unspecified classification, unspecified whether serious comorbidity present Snoring 1. VIRGILIO (obstructive sleep apnea) - G47.33 (Primary) 2. Hypersomnia - G47.10 3. Snoring - R06.83 4. PLMD (periodic limb movement disorder) - G47.61 78-year-old male with a severe obstructive sleep apnea leading to daytime hypersomnolence and snoring. He has well-controlled with the use of the CPAP machine. He is compliant using 100 percent of the time greater than 4 hours average nightly usage is 7 hours and 48 minutes with a residual AHI of 2. He is getting great benefit and does not feel sleepy during the day as he did previously. He does have some periodic limb movement disorder however he states it does not disrupt his sleep so he does not want to start medication for it. 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 He is not being as aggressive with diet exercise and weight loss as he should however he is active. . . . Plan His compliance download was reviewed and is as above he is compliant continue to wear mask whenever sleeping The patient was counselled on the risk of stroke, [place], and sudden with VIRGILIO, along with the need for compliance with CPAP/BiPAP treatment. The patient was counseled on the need for aggressive diet, exercise, and weight loss. This was discussed with the patient, all questions were answered and they agreed with the treatment plan. The patient is to call with any worsening of the condition or new symptoms. The diagnosis was all discussed with the patient. All questions were answered and they agreed with the treatment plan. Patient will call if there are any new issues or questions. Pt has been fully educated on their diagnosis, treatment options, follow up plan, and return instructions Return to clinic: documented in this encounter [facility] 11-12-2023 Note Patient Education Urology Benign Prostatic Hyperplasia Benign prostatic hyperplasia (BPH) is an enlarged prostate gland that is caused by the normal aging process. The prostate may get bigger as a man gets older. The condition is not caused by cancer. The prostate is a walnut-sized gland that is involved in the production of semen. It is located in front of the rectum and below the bladder. The bladder stores urine. The urethra carries stored urine out of the body. An enlarged prostate can press on the urethra. This can make it harder to pass urine. The buildup of urine in the bladder can cause infection. Back pressure and infection may progress to bladder damage and kidney (renal) failure. What are the causes? This condition is part of the normal aging process. However, not all men develop problems from this condition. If the prostate enlarges away from the urethra, urine flow will not be blocked. If it enlarges toward the urethra and compresses it, there will be problems passing urine. What increases the risk? This condition is more likely to develop in men older than 50 years. What are the signs or symptoms? Symptoms of this condition include: ? Getting up often during the night to urinate. ? Needing to urinate frequently during the day. ? Difficulty starting urine flow. ? Decrease in size and strength of your urine stream. ? Leaking (dribbling) after urinating. ? Inability to pass urine. This needs immediate treatment. ? Inability to completely empty your bladder. ? Pain when you pass urine. This is more common if there is also an infection. ? Urinary tract infection (UTI). How is this diagnosed? This condition is diagnosed based on your medical history, a physical exam, and your symptoms. Tests will also be done, such as: ? A post-void bladder scan. This measures any amount of urine that may remain in your bladder after you finish urinating. ? A digital rectal exam. In a rectal exam, your health care provider checks your prostate by putting a lubricated, gloved finger into your rectum to feel the back of your prostate gland. This exam detects the size of your gland and any abnormal lumps or growths. ? An exam of your urine (urinalysis). ? A prostate specific antigen (PSA) screening. This is a blood test used to screen for prostate cancer. ? An ultrasound. This test uses sound waves to electronically produce a picture of your prostate gland. Your health care provider may refer you to a specialist in kidney and prostate diseases (urologist). How is this treated? Once symptoms begin, your health care provider will monitor your condition (active surveillance or watchful waiting). Treatment for this condition will depend on the severity of your condition. Treatment may include: ? Observation and yearly exams. This may be the only treatment needed if your condition and symptoms are mild. ? Medicines to relieve your symptoms, including: ? Medicines to shrink the prostate. ? Medicines to relax the muscle of the prostate. ? Surgery in severe cases. Surgery may include: ? Prostatectomy. In this procedure, the prostate tissue is removed completely through an open incision or with a laparoscope or robotics. ? Transurethral resection of the prostate (TURP). In this procedure, a tool is inserted through the opening at the tip of the penis (urethra). It is used to cut away tissue of the inner core of the prostate. The pieces are removed through the same opening of the penis. This removes the blockage. ? Transurethral incision (TUIP). In this procedure, small cuts are made in the prostate. This lessens the prostate's pressure on the urethra. ? Transurethral microwave thermotherapy (TUMT). This procedure uses microwaves to create heat. The heat destroys and removes a small amount of prostate tissue. ? Transurethral needle ablation (TUNA). This procedure uses radio frequencies to destroy and remove a small amount of prostate tissue. ? Interstitial laser coagulation (ILC). This procedure uses a laser to destroy and remove a small amount of prostate tissue. ? Transurethral electrovaporization (TUVP). This procedure uses electrodes to destroy and remove a small amount of prostate tissue. ? Prostatic urethral lift. This procedure inserts an implant to push the lobes of the prostate away from the urethra. Follow these instructions at home: ? Take [id number] and prescription medicines only as told by your health care provider. ? Monitor your symptoms for any changes. Contact your health care provider with any changes. ? Avoid drinking large amounts of liquid before going to bed or out in public. ? Avoid or reduce how much caffeine or alcohol you drink. ? Give yourself time when you urinate. ? Keep all follow-up visits. This is important. Contact a health care provider if: ? You have unexplained back pain. ? Your symptoms do not get better with treatment. ? You develop side effec (more content not included)... [facility] 10-14-2023 Note ED Patient Education Note Orthopedics Acute Knee Pain, Adult Many things can cause knee pain. Sometimes, knee pain is sudden (acute) and may be caused by damage, swelling, or irritation of the muscles and tissues that support your knee. The pain often goes away on its own with time and rest. If the pain does not go away, tests may be done to find out what is causing the pain. Follow these instructions at home: If you have a knee sleeve or brace: ? Wear the knee sleeve or brace as told by your doctor. Take it off only as told by your doctor. ? Loosen it if your toes: ? Tingle. ? Become numb. ? Turn cold and blue. ? Keep it clean. ? If the knee sleeve or brace is not waterproof: ? Do not let it get wet. ? Cover it with a watertight covering when you take a bath or shower. Activity ? Rest your knee. ? Do not do things that cause pain or make pain worse. ? Avoid activities where both feet leave the ground at the same time (high-impact activities). Examples are running, jumping rope, and doing jumping jacks. ? Work with a physical therapist to make a safe exercise program, as told by your doctor. Managing pain, stiffness, and swelling ? If told, put ice on the knee. To do this: ? If you have a removable knee sleeve or brace, take it off as told by your doctor. ? Put ice in a plastic bag. ? Place a towel between your skin and the bag. ? Leave the ice on for 20 minutes, 2?3 times a day. ? Take off the ice if your skin turns bright red. This is very important. If you cannot feel pain, heat, or cold, you have a greater risk of damage to the area. ? If told, use an elastic bandage to put pressure (compression) on your injured knee. ? Raise your knee above the level of your heart while you are sitting or lying down. ? Sleep with a pillow under your knee. General instructions ? Take [id number] and prescription medicines only as told by your doctor. ? Do not smoke or use any products that contain nicotine or tobacco. If you need help quitting, ask your doctor. ? If you are overweight, work with your doctor and a food expert (dietitian) to set goals to lose weight. Being overweight can make your knee hurt more. ? Watch for any changes in your symptoms. ? Keep all follow-up visits. Contact a doctor if: ? The knee pain does not stop. ? The knee pain changes or gets worse. ? You have a fever along with knee pain. ? Your knee is red or feels warm when you touch it. ? Your knee gives out or locks up. Get help right away if: ? Your knee swells, and the swelling gets worse. ? You cannot move your knee. ? You have very bad knee pain that does not get better with pain medicine. Summary ? Many things can cause knee pain. The pain often goes away on its own with time and rest. ? Your doctor may do tests to find out the cause of the pain. ? Watch for any changes in your symptoms. Relieve your pain with rest, medicines, light activity, and use of ice. ? Get help right away if you cannot move your knee or your knee pain is very bad. This information is not intended to replace advice given to you by your health care provider. Make sure you discuss any questions you have with your health care provider. Document Revised: 08/21/2020 Document Reviewed: 08/21/2020 [employer] Patient Education ? 2022 [employer]. [facility] 08-25-2023 History of Present illness Narrative Subjective Leighton Arciniega is a 77 y.o. male Chief Complaint Follow-up HPI Patient returns in follow-up of problems as noted. He is done well. He denies any angina CHF or arrhythmia symptomatology. Recent pacemaker checks are reviewed and they demonstrate satisfactory device performance and no underlying arrhythmias that would necessitate changes in therapy. His blood pressure and lipid management is reviewed and felt to be adequate and appropriate. Cardiomyopathy symptomatology is absent. Previously ejection fraction 40 to 45%. Doubtful there is been a change. In all regards he appears to be doing well because of this we suggest no change. The merits of diet and weight loss were advocated Vitals: 08/25/23 1212 BP: 126/54 BP Location: Left arm Patient Position: Sitting Pulse: 60 Weight: 106 kg (233 lb) Height: 1.778 m (5' 10 ) Objective Physical Exam Constitutional: Appearance: Normal appearance. HENT: Nose: Nose normal. Neck: Vascular: No carotid bruit. Cardiovascular: Rate and Rhythm: Normal rate. Pulses: Normal pulses. Heart sounds: Normal heart sounds. Pulmonary: Effort: Pulmonary effort is normal. Abdominal: General: Bowel sounds are normal. Palpations: Abdomen is soft. Musculoskeletal: General: Normal range of motion. Cervical back: Normal range of motion. Right lower leg: No edema. Left lower leg: No edema. Skin: General: Skin is warm and dry. Neurological: General: No focal deficit present. Mental Status: He is alert. Psychiatric: Mood and Affect: Mood normal. Behavior: Behavior normal. Thought Content: Thought content normal. Judgment: Judgment normal. Allergies Enalapril and Metoprolol Current Medications Current Outpatient Medications: acetaminophen (TylenoL) 325 mg capsule, Take 1 capsule (325 mg) by mouth every 6 hours if needed., Disp: , Rfl: allopurinol (Zyloprim) 300 mg tablet, Take 1 tablet (300 mg) by mouth once daily., Disp: , Rfl: amLODIPine (Norvasc) 10 mg tablet, Take 1 tablet (10 mg) by mouth once daily., Disp: , Rfl: apixaban (Eliquis) 5 mg tablet, Take 1 tablet (5 mg) by mouth 2 times a day., Disp: , Rfl: aspirin 81 mg EC tablet, Take 1 tablet (81 mg) by mouth 1 (one) time per week., Disp: , Rfl: CALCIUM CARBONATE-VITAMIN D3 ORAL, Take 1 tablet by mouth once daily., Disp: , Rfl: carvedilol (Coreg) 6.25 mg tablet, Take 1 tablet (6.25 mg) by mouth 2 times a day., Disp: , Rfl: cyanocobalamin, vitamin B-12, (Vitamin B-12) 1,000 mcg tablet extended release, Take 1 tablet (1,000 mcg) by mouth once daily., Disp: , Rfl: diclofenac sodium (Voltaren) 1 % gel, if needed., Disp: , Rfl: empagliflozin (Jardiance) 25 mg, Take 0.5 tablets (12.5 mg) by mouth once daily., Disp: , Rfl: ferrous sulfate, 325 mg ferrous sulfate, tablet, Take 1 tablet by mouth 2 times a day., Disp: , Rfl: furosemide (Lasix) 20 mg tablet, Take 1 tablet (20 mg) by mouth 2 times a day., Disp: , Rfl: glipiZIDE (Glucotrol) 5 mg tablet, Take 1 tablet (5 mg) by mouth. 5 mg at breakfast 10 mg at dinner, Disp: , Rfl: hydrALAZINE (Apresoline) 50 mg tablet, Take 1 tablet (50 mg) by mouth 3 times a day., Disp: , Rfl: insulin glargine (Lantus U-100 Insulin) 100 unit/mL injection, Inject under the skin., Disp: , Rfl: multivitamin tablet, Take 1 tablet by mouth once daily., Disp: , Rfl: omeprazole (PriLOSEC) [address] capsule, Take 1 capsule (20 mg) by mouth once daily in the morning. Take before meals., Disp: , Rfl: semaglutide (Ozempic) 1 mg/dose (2 mg/1.5 mL) pen injector, Inject 1 mg under the skin 1 (one) time per week., Disp: , Rfl: sildenafil (Viagra) 100 mg tablet, take 1 tablet by mouth 1 hour prior to intercourse if needed, Disp: , Rfl: simvastatin (Zocor) 20 mg tablet, Take 0.5 tablets (10 mg) by mouth once daily at bedtime., Disp: , Rfl: spironolactone (Aldactone) 25 mg tablet, Take 1 tablet (25 mg) by mouth once daily., Disp: , Rfl: tamsulosin (Flomax) 0.4 mg 24 hr capsule, 1 capsule (0.4 mg) once daily., Disp: , Rfl: terazosin (Hytrin) 10 mg capsule, Take 1 capsule (10 mg) by mouth once daily., Disp: , Rfl: triamcinolone (Kenalog) 0.1 % lotion, Apply topically 3 times a day., Disp: , Rfl: Pacemaker/Defibrillator follow up per routine Assessment/Plan 1. Sick sinus syndrome (Multi) Mitigated with pacemaker implant. - Follow Up In Cardiology 2. Essential hypertension Review of treatment strategy demonstrates good control 3. Mixed hyperlipidemia Review of treatment strategy demonstrates good control 4. Paroxysmal atrial fibrillation (Multi) No recurrence noted on recent pacemaker check. Continue same. 5. Dilated cardiomyopathy (Multi) Asymptomatic and functional class I. No malignant arrhythmias noted on recent pacemaker check 6. Pacemaker Device checks reviewed. No malignant arrhythmias noted. 7. BMI 33.0-33.9,adult The merits of diet and weight loss were advocated Scribe Attestation By signing my name below, IAlberta LPN , Scribe attest that this documentation has been prepared under the direction and in the presence of Varghese Cala MD. Provider Attestation - Scribe documentation All medical record entries made by the Scribe were at my direction and personally dictated by me. I have reviewed the chart and agree that the record accurately reflects my personal performance of the history, physical exam, discussion and plan. documented in this encounter [facility] Work Phone: 08-25-2023 Instructions Jo Ann Ferrer CMA - 08/25/2023 11:40 AM EDT Please bring all medicines, vitamins, and herbal supplements with you when you come to the office. Prescriptions will not be filled unless you are compliant with your follow up appointments or have a follow up appointment scheduled as per instruction of your physician. Refills should be requested at the time of your visit. documented in this encounter [facility] Work Phone: 02-10-2023 History of Present illness Narrative Subjective Leighton Arciniega is a 77 y.o. male Chief Complaint Follow-up HPI Patient returns in follow-up of problems as noted. He is doing well. He denies angina CHF or arrhythmia symptomatology. Recent pacemaker checks are reviewed and they demonstrate satisfactory device performance and no underlying atrial arrhythmias in need of intervention. Management of his hypertension is good. Cardiomyopathy is asymptomatic and he is on guideline directed therapy including carvedilol Jardiance spironolactone. He is on hydralazine instead of NALINI inhibitor's because of renal insufficiency. Long detailed discussion ensued. I cannot elicit any cardiac symptomatology from him whatsoever and because of this we believe him to be stable. Review of Systems All other systems reviewed and are negative. Visit Vitals BP 120/58 (BP Location: Left arm, Patient Position: Sitting) Pulse 63 Ht 1.778 m (5' 10 ) Wt 102 kg (225 lb) BMI 32.28 kg/m Smoking Status Former BSA 2.24 m Objective Physical Exam Constitutional: Appearance: Normal appearance. He is normal weight. HENT: Nose: Nose normal. Neck: Vascular: No carotid bruit. Cardiovascular: Rate and Rhythm: Normal rate. Pulses: Normal pulses. Heart sounds: Normal heart sounds. Pulmonary: Effort: Pulmonary effort is normal. Abdominal: General: Bowel sounds are normal. Palpations: Abdomen is soft. Genitourinary: Rectum: Normal. Musculoskeletal: General: Normal range of motion. Cervical back: Normal range of motion. Right lower leg: No edema. Left lower leg: No edema. Skin: General: Skin is warm and dry. Neurological: General: No focal deficit present. Mental Status: He is alert. Psychiatric: Mood and Affect: Mood normal. Behavior: Behavior normal. Thought Content: Thought content normal. Judgment: Judgment normal. Current Medications Current Outpatient Medications: acetaminophen (TylenoL) 325 mg capsule, Take 1 capsule (325 mg) by mouth every 6 hours if needed., Disp: , Rfl: allopurinol (Zyloprim) 300 mg tablet, Take 1 tablet (300 mg) by mouth once daily., Disp: , Rfl: amLODIPine (Norvasc) 10 mg tablet, Take 1 tablet (10 mg) by mouth once daily., Disp: , Rfl: apixaban (Eliquis) 5 mg tablet, Take 1 tablet (5 mg) by mouth 2 times a day., Disp: , Rfl: aspirin 81 mg EC tablet, Take 1 tablet (81 mg) by mouth 1 (one) time per week., Disp: , Rfl: CALCIUM CARBONATE-VITAMIN D3 ORAL, Take 1 tablet by mouth once daily., Disp: , Rfl: carvedilol (Coreg) 6.25 mg tablet, Take 1 tablet (6.25 mg) by mouth 2 times a day., Disp: , Rfl: cholecalciferol (Vitamin D-3) 50 mcg (2,000 unit) capsule, Take 1 capsule (50 mcg) by mouth once daily., Disp: , Rfl: cyanocobalamin, vitamin B-12, (Vitamin B-12) 1,000 mcg tablet extended release, Take 1 tablet (1,000 mcg) by mouth once daily., Disp: , Rfl: empagliflozin (Jardiance) 25 mg, Take 0.5 tablets (12.5 mg) by mouth once daily., Disp: , Rfl: ferrous sulfate, 325 mg ferrous sulfate, tablet, Take 1 tablet by mouth 2 times a day., Disp: , Rfl: furosemide (Lasix) 20 mg tablet, Take 1 tablet (20 mg) by mouth 2 times a day., Disp: , Rfl: glipiZIDE (Glucotrol) 5 mg tablet, Take 1 tablet (5 mg) by mouth 2 times a day before meals. 10 mg at dinner, Disp: , Rfl: hydrALAZINE (Apresoline) 50 mg tablet, Take 1 tablet (50 mg) by mouth 3 times a day., Disp: , Rfl: insulin glargine (Lantus U-100 Insulin) 100 unit/mL injection, Inject under the skin., Disp: , Rfl: multivitamin tablet, Take 1 tablet by mouth once daily., Disp: , Rfl: omeprazole (PriLOSEC) [address] capsule, Take 1 capsule (20 mg) by mouth once daily in the morning. Take before meals., Disp: , Rfl: semaglutide (Ozempic) 1 mg/dose (2 mg/1.5 mL) pen injector, Inject 1 mg under the skin 1 (one) time per week., Disp: , Rfl: simvastatin (Zocor) 20 mg tablet, Take 0.5 tablets (10 mg) by mouth once daily at bedtime., Disp: , Rfl: spironolactone (Aldactone) 25 mg tablet, Take 1 tablet (25 mg) by mouth once daily., Disp: , Rfl: terazosin (Hytrin) 10 mg capsule, Take 1 capsule (10 mg) by mouth once daily., Disp: , Rfl: triamcinolone (Kenalog) 0.1 % lotion, Apply topically 3 times a day., Disp: , Rfl: Assessment/Plan 1. Sick sinus syndrome (CMS/HCC) Mitigated with pacemaker implant and no symptomatic bradycardia 2. Mobitz type II atrioventricular block Mitigated with pacemaker implant and no symptomatic bradycardia 3. Pacemaker Device checks demonstrate satisfactory device performance and no breakthrough atrial fibrillation that would require treatment 4. Essential hypertension Adequate control on current therapy 5. Dilated cardiomyopathy (CMS/HCC) Resolved with guideline directed therapy and asymptomatic, functional class I 6. Paroxysmal atrial fibrillation (CMS/HCC) No recurrence noted on recent pacemaker checks. documented in this encounter [facility] Work Phone: 02-10-2023 Instructions Alize James LPN - 02/10/2023 11:30 AM EST Please bring all medicines, vitamins, and herbal supplements with you when you come to the office. Prescriptions will not be filled unless you are compliant with your follow up appointments or have a follow up appointment scheduled as per instruction of your physician. Refills should be requested at the time of your visit. Pacemaker/Defibrillator follow up per routine documented in this encounter [facility] Work Phone: 05-14-2022 Note PROCEDURE: XR KNEE L T 4V or > HISTORY: Pain of left knee joint ; chronic posterior lateral knee pain COMPARISON: None. FINDINGS: BONES:Large periarticular degenerative osteophytes involving the medial and lateral compartments; small-moderate involving margins of the patella. No fracture, dislocation, articular surface irregularity. SOFT TISSUES:Mild narrowing of medial compartment. Calcium deposition within the menisci, lateral greater than medial. EFFUSION:None visible. OTHER: Negative. IMPRESSION: 1. Moderate degenerative changes. No specific findings to account for patient's symptoms. Electronically authenticated by: JOE DU Date: 2022-05-14 18:40 [facility] Evaluation note Diagnosis Sick sinus syndrome (CMS/HCC)- Primary Sinoatrial node dysfunction Mobitz type II atrioventricular block Mobitz (type) II atrioventricular block Pacemaker Cardiac pacemaker in situ Essential hypertension Unspecified essential hypertension Dilated cardiomyopathy (CMS/HCC) Other primary cardiomyopathies Paroxysmal atrial fibrillation (CMS/HCC) Atrial fibrillation documented in this encounter [facility] Work Phone: Evaluation note* Diagnosis Essential hypertension- Primary Unspecified essential hypertension Sick sinus syndrome (Multi) Sinoatrial node dysfunction Mixed hyperlipidemia Paroxysmal atrial fibrillation (Multi) Atrial fibrillation Dilated cardiomyopathy (Multi) Other primary cardiomyopathies Pacemaker Cardiac pacemaker in situ BMI 33.0-33.9,adult documented in this encounter [facility] Work Phone: Evaluation note* Diagnosis Other atopic dermatitis- Primary Seborrheic keratosis Lentigines History of SCC (squamous cell carcinoma) of skin Personal history of other malignant neoplasm of skin documented in this encounter [facility] Diagnosis Paroxysmal atrial fibrillation (Multi)- Primary Atrial fibrillation Sick sinus syndrome (Multi) Sinoatrial node dysfunction Pacemaker Cardiac pacemaker in situ Essential hypertension Unspecified essential hypertension Cardiomyopathy, unspecified type (Multi) Mixed hyperlipidemia Stage 4 chronic kidney disease (Multi) Non-smoker BMI 30.0-30.9,adult documented in this encounter [facility] Work Phone: Evaluation note* Diagnosis VIRGILIO (obstructive sleep apnea)- Primary Obstructive sleep apnea (adult) (pediatric) Hypersomnia Hypersomnia, unspecified PLMD (periodic limb movement disorder) Periodic limb movement disorder Obesity due to excess calories, unspecified classification, unspecified whether serious comorbidity present Snoring Other dyspnea and respiratory abnormality documented in this encounter [facility] Present illness NarrativePatient returns in follow-up of problems as noted. He is doing well. I cannot elicit any angina CHFarrhythmia or neurologic symptomatology. He followed my dietary advice and lost 19 pounds. As a consequence is blood glucose is improved and his diabetes control has been improved. Additionally his blood pressures gone down and because of this we suggested stopping isosorbide mononitrate. Recent pacemaker checks are reviewed with him and they demonstrate satisfactory device performance. Because of all the above we suggest continued therapy as before although we will stop isosorbide as noted. Treatment of lipids was also reviewed and felt to be adequate and appropriate. Once again the merits of diet and lifestyle modification and weight loss were advocated and he was congratulated on his effo rts. Briefly he comments, also, that his renal function curiously has improved. I believe this could be on the basis of his improve lifestyle modification.[facility] 250 DO Work Phone: History of Present illness Narrative* Patient returns in follow-up of problems as noted. In the interim he is done well. He denies any angina heart failure or arrhythmia symptomatology. Recent pacemaker checks demonstrate that he is having frequent episodes of atrial fibrillation and because of this I recommended that he change his aspirin to once per week and that he stop Plavix. We will in its place initiate Eliquis therapy which I believed to be superior at mitigating stroke risk associated with his atrial fibrillation. * Treatment of other risk factors including hypertension and hyperlipidemia is reviewed and felt to be adequate and appropriate. He does have renal insufficiency which is followed by nephrology. Because of this the dosage of Eliquis provided will be reduced accordingly. * He denies any orthopnea PND or dyspnea exertion that he had in the past associated with his nonischemic cardiomyopathy and we believe his heart failure is also well compensated. Lastly we advocated the merits of diet and weight loss. [facility] 600 DO Work Phone: History of Present illness Narrative* Patient returns in follow-up of problems as noted. In the interim there have been no clinical events. No symptoms of cardiomyopathy such as orthopnea PND or dyspnea with exertion. Device pacemaker interrogation demonstrates paroxysms of atrial fibrillation adequately addressed with Eliquis. In the future we will reduce the dose because of advancing renal insufficiency * Blood pressure and lipids appear to be adequately addressed. Patient has no manifestations of stageIV renal failure at the moment on current medical therapy. Bradycardia arrhythmia diagnoses as listed are all adequately addressed by the pacemaker. 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 [facility] 600 DO Work Phone: Reason for referral (narrative)* Consultation (Routine) - Authorized Specialty Diagnoses / Procedures Referred By Contac t Referred To Contact Cardiology Diagnoses Sick sinus syndrome (CMS/HCC) Procedures Follow Up In Cardiology Varghese Caal MD [address] [place] [address] [facility], [address] [address] Varghese Caal MD [address] [place] [address] [facility] 2, [address] [address] Referral ID Status Reason Start Date Expiration Date V isits Requested Visits Authorized [id number] Authorized 02/10/2023 02/10/2024 1 1 [facility] Work Phone: Reason for referral (narrative)* Consultation (Routine) - Authorized Specialty Diagnoses / Procedures Referred By Contac t Referred To Contact Cardiology Diagnoses Sick sinus syndrome (Multi) Procedures Follow Up In Cardiology Varghese Caal MD [address], [address] [place] [address] Osvaldo Dickinson MD [address] [facility] 2, [facility] [address] [place] [address] Referral ID Status Reason Start Date Expiration Date V isits Requested Visits Authorized [id number] Authorized 08/25/2023 08/24/2024 1 1 [facility] Work Phone: Chief Complaint LEIGHTON ARCINIEGA is being seen for a 6 month follow-up of.LEIGHTON SUZE is being seen for a 6-9 month follow-up of.LEIGHTON ARCINIEGA is being seen for a 6-9 month follow-up of. Family History Unknown Family Member Name Dates Details Family history of arterioscl erotic cardiovascular disease: Mother, Brother(V17.49, Z82.49) Status:Active Unknown Family Member Name Dates Details Family history of arterioscl erotic cardiovascular disease: Mother, Brother(V17.49, Z82.49) Status:Active Unknown Family Member Name Dates Details Family history of arterioscl erotic cardiovascular disease: Mother, Brother(V17.49, Z82.49) Status:Active Unknown Family Member Name Dates Details Family history of arterioscl erotic cardiovascular disease: Mother, Brother(V17.49, Z82.49) Status:Active Summary Purpose Advance Directives No Advanced Directives Records FoundNo Advanced Directives Records FoundNo Advanced Directives Records FoundNo Advanced Directives Records FoundNo Advanced Directives Records FoundNo Advanced Directives Records FoundNo Advanced Directives Records FoundNo Advanced Directives Records FoundNo Advanced Directives Records Found Additional Source Comments (unrecognized sect ion and content) No Status Records FoundNo Status Records FoundNo Status Records FoundNo Status Records FoundNo Status Records FoundNo Status Records FoundNo Status Records FoundNo Status Records FoundNo Status Records Found INFORMATION SOURCE (unrecogn ized section and content) DATE CREATED AUTHOR 04/16/2021 [facility] DATE CREATED AUTHOR AUTHOR'S ORGANIZ ATION 06/01/2022 [facility] DATE CREATED AUTHOR AUTHOR'S ORGANIZ ATION 07/03/2022 [facility] DATE CREATED AUTHOR AUTHOR'S ORGANIZ ATION 11/05/2022 [facility] DATE CREATED AUTHOR AUTHOR'S ORGANIZ ATION 11/14/2023 [facility] DATE CREATED AUTHOR AUTHOR'S ORGANIZ ATION 01/18/2024 [facility] DATE CREATED AUTHOR AUTHOR'S ORGANIZ ATION 02/21/2024 [facility] DATE CREATED AUTHOR AUTHOR'S ORGANIZ ATION 03/03/2024 [facility] DATE CREATED AUTHOR AUTHOR'S ORGANIZ ATION 03/04/2024 [facility] Amb[facility] Reason for Visit (unrecogniz ed section and content) Reason Comments Follow-up 6-9mo Reason Comments Follow-up 6-9 months Specialty Diagnoses / Procedures Referred By Contac t Referred To Contact Cardiology Diagnoses Sick sinus syndrome (Multi) Procedures Follow Up In Cardiology Varghese Caal MD [address] [place] [address], [address] [address] Varghese Caal MD [address] [place] [address] 2, [address] [address] Referral ID Status Reason Start Date Expiration Date V isits Requested Visits Authorized [id number] Authorized 02/10/2023 02/10/2024 1 1 Reason Comments Skin Check Follow-up Reason Comments Follow-up 6-9 months Specialty Diagnoses / Procedures Referred By Contac t Referred To Contact Cardiology Diagnoses Sick sinus syndrome (Multi) Procedures Follow Up In Cardiology Varghese Caal MD Traboulssi, Mourhaf, MD [address] [place] [address], [address] [address] Phone: tel: fax: Referral ID Status Reason Start Date Expiration Date V isits Requested Visits Authorized [id number] Authorized 08/25/2023 08/24/2024 1 1 Reason Comments Sleep Apnea Care Teams (unrecognized sec tion and content) Volcanologist Relationship Specialty Start Date End Date Andrea Espinoza DO [address] [place] [address] PCP - General 03/22/99 Volcanologist Relationship Specialty Start Date End Date Andrea EspinozaDO [address] [facility] [place] [address] PCP - General 03/22/99 Volcanologist Relationship Specialty Start Date End Date Lori Medina MD [address] [place] [facility] [address] PCP - General Family Medicine 10/09/22 Volcanologist Relationship Specialty Start Date End Date Andrea EspinozaDO [address] [place] [address] PCP - General 03/22/99 Volcanologist Relationship Specialty Start Date End Date Lori Medina MD [address] [place] [facility] [address] PCP - General Family Medicine 10/09/22 Volcanologist Relationship Specialty Start Date End Date Lori Medina MD [address] [place] [facility] [address] PCP - General Family Medicine 10/09/22 FOR RECORDS PERTAINING TO PATIENTS WHO ARE OR HAVE BEEN ENROLLED IN A CHEMICAL DEPENDENCY/SUBSTANCEABUSE PROGRAM, SOME INFORMATION MAY BE OMITTED. This clinical summary was aggregated from multiple sources. Caution should be exercised in using it in the provision of clinical care. This summary normalizes information from multiple sources, and as a consequence, information in this document may materially change the coding, format and clinical context of patient data. In addition, data may be omitted in some cases. CLINICAL DECISIONS SHOULD BE BASED ON THE PRIMARY CLINICAL RECORDS. [facility]. provides no warranty or guarantee of the accuracy or completeness of information in this document.
--- NOTE | 2024-03-11 01:16 | ED.ABDPAIN1 ---
HPI - Abdominal Pain General Chief Complaint: Urogenital-Male Stated Complaint: abd pain Time Seen by Provider: 03/11/24 01:01 Source: patient Mode of arrival: walk-in Limitations: no limitations History of Present Illness HPI narrative: 78-year-old male presents to the emergency department for lower abdominal pain. He has not had a bowel movement for 2 days. He was recently hospitalized for UTI and had prior to that failed outpatient therapy. He has now finished his antibiotic. No hematuria or back pain or fever. No vomiting or diarrhea. Related Data Home Medications ?Medication ?Instructions ?Recorded ?Confirmed acetaminophen 500 mg capsule 1,000 mg PO Q6H PRN fever or pain 02/26/24 03/11/24 allopurinol 300 mg tablet 300 mg PO DAILY 02/26/24 03/11/24 amlodipine 10 mg tablet 10 mg PO DAILY 02/26/24 03/11/24 apixaban 5 mg tablet (Eliquis) 5 mg PO Q12H 02/26/24 03/11/24 aspirin 81 mg tablet,delayed 81 mg PO .weekly 02/26/24 03/11/24 release (Adult Aspirin Regimen) calcium 315 mg (as 1 tab PO DAILY 02/26/24 03/11/24 citrate)-vitamin D3 5 mcg (200 unit) tablet (Calcium Citrate + D) carvedilol 6.25 mg tablet 6.25 mg PO Q12H 02/26/24 03/11/24 cyanocobalamin (vitamin B-12) 1,000 mcg PO DAILY 02/26/24 03/11/24 1,000 mcg tablet (Vitamin B-12) empagliflozin 25 mg tablet 12.5 mg PO DAILY 02/26/24 03/11/24 (Jardiance) ferrous sulfate 325 mg (65 mg 325 mg PO DAILY 02/26/24 03/11/24 iron) tablet (iron) furosemide 20 mg tablet 20 mg PO Q12H 02/26/24 03/11/24 glipizide 10 mg tablet 10 mg PO BID 02/26/24 03/11/24 hydralazine 50 mg tablet 100 mg PO Q8H 02/26/24 03/11/24 insulin glargine 100 unit/mL (3 24 unit subcut BID 02/26/24 03/11/24 mL) subcutaneous pen multivitamin (Daily Multi-Vitamin 1 tab PO DAILY 02/26/24 03/11/24 tablet) omeprazole 20 mg capsule,delayed 20 mg PO DAILY 02/26/24 03/11/24 release semaglutide 1 mg/dose (4 mg/3 mL) 1 mg subcut QWEEK 02/26/24 03/11/24 subcutaneous pen injector (Ozempic) sildenafil 100 mg tablet 100 mg PO Q24H PRN sexual activity 02/26/24 03/11/24 simvastatin 20 mg tablet 20 mg PO DAILY 02/26/24 03/11/24 spironolactone 25 mg tablet 25 mg PO DAILY 02/26/24 03/11/24 tacrolimus 0.1 % topical ointment 1 applic topical Q12H PRN skin 02/26/24 03/11/24 irritation terazosin 10 mg capsule 10 mg PO BEDTIME 02/26/24 03/11/24 Allergies Allergy/AdvReac Type Severity Reaction Status Date / Time fosinopril (From Monopril) Allergy Severe shortness Verified 02/26/24 10:49 of breath metoprolol Allergy Severe shortness Verified 02/26/24 10:49 of breath strawberry Allergy Severe Rash Verified 02/26/24 13:21 Review of Systems ROS Narrative A ten point review of systems is negative except as noted above. [facility] Medical History (Updated 03/11/24 @ 03:19 by Hector Vasquez MD) Failure of outpatient treatment ?Z78.9 - Other specified health status (ICD-10) Urinary tract infection ?N39.0 - Urinary tract infection, site not specified (ICD-10) Skin cancer ?C44.90 - Unspecified malignant neoplasm of skin, unspecified (ICD-10) Myocardial infarction ?I21.9 - Acute myocardial infarction, unspecified (ICD-10) Pacemaker ?Z95.0 - Presence of cardiac pacemaker (ICD-10) CKD (chronic kidney disease) ?N18.9 - Chronic kidney disease, unspecified (ICD-10) CAD (coronary artery disease) ?I25.10 - Atherosclerotic heart disease of ute coronary artery without angina pectoris (ICD-10) A-fib ?I48.91 - Unspecified atrial fibrillation (ICD-10) Erectile dysfunction ?N52.9 - Male erectile dysfunction, unspecified (ICD-10) UTI (urinary tract infection) ?N39.0 - Urinary tract infection, site not specified (ICD-10) GERD (gastroesophageal reflux disease) ?K21.9 - Gastro-esophageal reflux disease without esophagitis (ICD-10) Hypertension ?I10 - Essential (primary) hypertension (ICD-10) Diabetes ?E11.9 - Type 2 diabetes mellitus without complications (ICD-10) Surgical History (Updated 02/26/24 @ 16:07 by Sameera Santoyo RN) History of arthroscopic knee surgery ?Z98.890 - Other specified postprocedural states (ICD-10) Hx of tonsillectomy ?Z90.89 - Acquired absence of other organs (ICD-10) Family History (Updated 02/26/24 @ 15:14 by Sameera Santoyo RN) Mother Family history of CHF (congestive heart failure) Family history of myocardial infarction Family history of hypertension Family history of diabetes mellitus Family history of COPD (chronic obstructive pulmonary disease) Grandmother Family history of CHF (congestive heart failure) Brother Family history of CHF (congestive heart failure) Family history of myocardial infarction Family history of hypertension Family history of COPD (chronic obstructive pulmonary disease) Father Kidney failure Social History (Updated 02/26/24 @ 15:16 by Sameera Santoyo RN) Within the past year, how often did you have a drink containing alcohol: never Score interpretation: A score less than 4 is consistent with normal alcohol consumption. Smoking status: Former smoker Non-prescribed substance use: denies use Highest level of school completed/degree received: Associate degree: occupational, technical, vocational program Little interest or pleasure in doing things: not at all Feeling down, depressed, or hopeless: not at all Exam Narrative Exam Narrative: Nurses note and vital signs reviewed and patient is not hypoxic. General: The patient appears well and in no apparent distress. Patient is resting comfortably on cart. Skin: Warm, dry, no pallor noted. There is no rash noted. Head: Normocephalic, atraumatic Eye: Normal conjunctiva, no drainage Ears, Nose, Mouth, and Throat: oral mucosa is moist. Nares patent. Cardiovascular: Regular Rate and Rhythm Respiratory: Patient is in no distress, no accessory muscle use, lungs are clear to auscultation, no wheezing, rales or rhonchi Back: non-tender GI: Soft and nondistended. Minimal tenderness in the lower abdomen. Musculoskeletal: The patient has no evidence of calf tenderness, no pitting edema, symmetrical pulses noted bilaterally Neurological: A&O, normal speech Psychiatric: Cooperative Constitutional Vital Signs, click to edit/add: Last Vital Signs Temp 97.5 F L 03/11/24 01:05 Pulse 87 03/11/24 01:05 Resp 16 03/11/24 01:05 BP 149/93 H 03/11/24 01:05 Pulse Ox 97 03/11/24 01:05 O2 Del Method Room Air 03/11/24 01:05 Course Vital Signs Vital signs: Vital Signs Temperature 97.5 F L 03/11/24 01:05 Pulse Rate 87 03/11/24 01:05 Respiratory Rate 16 03/11/24 01:05 Blood Pressure 149/93 H 03/11/24 01:05 Pulse Oximetry 97 03/11/24 01:05 Oxygen Delivery Method Room Air 03/11/24 01:05 Temperature 97.5 F L 03/11/24 01:05 Pulse Rate 87 03/11/24 01:05 Respiratory Rate 16 03/11/24 01:05 Blood Pressure 149/93 H 03/11/24 01:05 Pulse Oximetry 97 03/11/24 01:05 Oxygen Delivery Method Room Air 03/11/24 01:05 MDM - Abdominal Pain MDM Narrative Medical decision making narrative: UTI is identified with greater than 100 white cells per high-power field. WBC 12,000. The patient was admitted 2 weeks ago for UTI and spent 2 days in the hospital with IV antibiotics. Urine culture at that time showed mixed cindy. He again is symptomatic and will be admitted for IV antibiotics. Findings are discussed with the patient. I have no clinical suspicion of pyelonephritis. Differential Diagnosis Differential diagnosis: Likely constipation and other (Urinary tract infection) Lab Data Attestation: I reviewed the patient's lab results. Labs: Lab Results 03/11/24 03/11/24 Range/Units 01:20 01:57 WBC 12.2 H (4.0-11.0) 10^3/uL RBC 3.91 L (4.70-6.10) 10^6/uL Hgb 12.6 L (14.0-18.0) g/dL Hct 38.2 L (42.0-54.0) % MCV 97.7 H (80.0-94.0) fL MCH 32.2 (25.9-34.0) pg MCHC 33.0 (29.9-35.2) g/dL RDW 13.9 (11.0-15.0) % Plt Count 248 (150-450) 10^3/uL MPV 8.8 L (9.5-13.5) fL Neut % (Auto) 70.7 (43.0-75.0) % Lymph % (Auto) 16.7 L (20.5-60.0) % [place] % (Auto) 8.5 (1.7-12.0) % Eos % (Auto) 3.5 (0.9-7.0) % Baso % (Auto) 0.4 (0.2-2.0) % Neut # (Auto) 8.6 H (1.4-6.5) 10^3/uL Lymph # (Auto) 2.0 (1.2-3.8) 10^3/uL [place] # (Auto) 1.0 H (0.3-0.8) 10^3/uL Eos # (Auto) 0.4 (0.0-0.7) 10^3/uL Baso # (Auto) 0.1 (0.0-0.1) 10^3/uL Abs Immat Gran (auto) 0.03 (0.00-0.03) 10^3/uL Imm/Tot Granulo (auto) 0.2 (0.0-0.5) % Sodium 138 (136-145) mmol/L Potassium 4.1 (3.5-5.1) mmol/L Chloride 107 (98-107) mmol/L Carbon Dioxide 27.3 (21.0-32.0) mmol/L Anion Gap 7.8 BUN 32.0 H (7.0-18.0) mg/dL Creatinine 2.32 H (0.70-1.30) mg/dL Est GFR ( Amer) 33 L (>=60 mL/min/1.73m^2) Est GFR (Non-Af Amer) 27 L (>=60 mL/min/1.73m^2) BUN/Creatinine Ratio 13.8 Glucose 232 H (74-106) mg/dL Calcium 9.6 (8.5-10.1) mg/dL Urine Color Yellow (YELLOW) Urine Clarity Turbid A (CLEAR) Urine pH 6.0 (5.0-9.0) Ur Specific [place] 1.015 (1.005-1.025) Urine Protein >=300 A (NEG/TRACE) mg/dL Urine Glucose (UA) >=1000 A (NEGATIVE) mg/dL Urine Ketones Negative (NEGATIVE) mg/dL Urine Occult Blood Small A (NEGATIVE) Urine Nitrite Negative (NEGATIVE) Urine Bilirubin Negative (NEGATIVE) Urine Urobilinogen 0.2 (0.2-1.0) EU/dL Ur Leukocyte Esterase Moderate A (NEGATIVE) Urine RBC None seen (0-2) #/HPF Urine WBC >100 A (NONE SEEN) #/HPF Ur Squamous Epith Cells None seen (NONE/RARE) #/LPF Urine Crystals None seen (None Seen) #/HPF Urine Bacteria Large A (NONE SEEN) #/HPF Urine Casts None seen (NONE SEEN) #/LPF Urine Mucus None seen (NONE SEEN) Ur Culture Indicated? Yes Imaging Data Abdominal x-ray: My impression: No acute finding Discharge Plan Discharge Chief Complaint: Urogenital-Male Clinical Impression: Urinary tract infection Patient Disposition: Admitted as Observation Time of Disposition Decision: 03:19 Condition: Good
[2024-03-11 01:28] LABS: Basophils Absolute Auto 0.1 10^3/uL (0.0-0.1); Basophils Percent Auto 0.4 % (0.2-2.0); Eosinophils Absolute Auto 0.4 10^3/uL (0.0-0.7); Eosinophils Percent Auto 3.5 % (0.9-7.0); Hematocrit 38.2 % (42.0-54.0); Hemoglobin 12.6 g/dL (14.0-18.0); Immature Granulocytes Abs Auto 0.03 10^3/uL (0.00-0.03); Immature Granulocytes Pct Auto 0.2 % (0.0-0.5); Lymphocytes Percent Auto 16.7 % (20.5-60.0); Mean Corpuscular Hemoglobin 32.2 pg (25.9-34.0); Mean Corpuscular Volume 97.7 fL (80.0-94.0); Mean Platelet Volume 8.8 fL (9.5-13.5); Monocytes Percent Auto 8.5 % (1.7-12.0); Neutrophils Absolute Auto 8.6 10^3/uL (1.4-6.5); Neutrophils Percent Auto 70.7 % (43.0-75.0); Platelet Count 248 10^3/uL (150-450); Red Blood Count 3.91 10^6/uL (4.70-6.10); Red Cell Distribution Width 13.9 % (11.0-15.0); White Blood Count 12.2 10^3/uL (4.0-11.0)
[2024-03-11 01:40] LABS: Anion Gap 7.8; BUN Creatinine Ratio 13.8; Calcium 9.6 mg/dL (8.5-10.1); Carbon Dioxide 27.3 mmol/L (21.0-32.0); Chloride 107 mmol/L (98-107); Estimated GFR (African America 33 (>=60 mL/min/1.73m^2); Estimated GFR (Non-African Ame 27 (>=60 mL/min/1.73m^2); Glucose 232 mg/dL (74-106); Potassium 4.1 mmol/L (3.5-5.1); Sodium 138 mmol/L (136-145)
[2024-03-11 02:18] LABS: Bilirubin Urine NEGATIVE (NEGATIVE); Blood Urine SMALL (NEGATIVE); Glucose Urine UA >=1000 mg/dL (NEGATIVE); Ketones Urine NEGATIVE (NEGATIVE); Leukocyte Esterase Urine MODERATE (NEGATIVE); Nitrite Urine NEGATIVE (NEGATIVE); Protein Urine >=300 mg/dL (NEG/TRACE); Specific Gravity Urine 1.015 (1.005-1.025); Urobilinogen Urine 0.2 EU/dL (0.2-1.0)
[2024-03-11 02:19] LABS: Clarity Urine TURBID (CLEAR); Color Urine YELLOW (YELLOW)
[2024-03-11 02:29] LABS: Bacteria Urine LARGE #/HPF (NONE SEEN); RBC Urine NONE SEEN #/HPF (0-2); WBC Urine >100 #/HPF (NONE SEEN)
[2024-03-11 02:30] LABS: Cast Seen? NONE SEEN #/LPF (NONE SEEN); Crystals Seen? None Seen #/HPF (None Seen); Mucus Urine NONE SEEN (NONE SEEN); Squamous Epithelial Cell Urine NONE SEEN #/LPF (NONE/RARE); Urine Culture Indicated YES
--- NOTE | 2024-03-11 02:47 | XR_ITS ---
The [address] [address] Patient Name: LEIGHTON ARCINIEGA MRN: [id number] date: 1945 Sex: M Assigned Patient Location: ER Current Patient Location: ED.MAIN Accession/Order Number: [id number] Exam Date: 03/11/2024 03:00 Report Date: 03/11/2024 04:10 At the request of: CHRISTINE SYKES Procedure: XR abdomen 1V EXAM: XR abdomen 1V HISTORY: Possible constipation COMPARISON: None. TECHNIQUE: One view of the abdomen was obtained. FINDINGS: A cardiac pacemaker lead is partially imaged. There is a nonspecific bowel gas pattern without evidence of bowel obstruction. A supine view is suboptimal for evaluation of intraperitoneal free air though none is seen. No acute osseous abnormality is seen. XR/XR abdomen 1V IMPRESSION: 1. Nonspecific bowel gas pattern without evidence of bowel obstruction. Electronically authenticated by: Nicole MATHEW Date: 03/11/2024 04:10
[2024-03-11] MEDS: CEFTRIAXONE 1,000 MG in 0.9 % SODIUM CHLORIDE 50 ML 100 MG IV (03:40)
--- OUTSIDE RECORDS SUMMARY | 2024-03-11 04:26 | XMS_ITS | CCD ---
Author Organization [facility] Care Team Providers Care Orthopedic Assistant Name Role Phone Andrea Espinoza Unavailable Unavailable [...] Afua MARCIAL, Dr. Varghese Lord Attending Unavailable fAua II, Dr. Varghese Lord Referring Unavailable Leana, [...] Unavailable Lori Medina MD Primary Care Provider [phone] BLANCA ALONSO Attending Unavailable PETITTGiovanna, BLANCA Zambrano [...] Unavailable Andrea Espinoza DO Primary Care Provider [phone] VARGHESE CAAL Attending Unavailable VARGHESE CAAL Referring Unavailable ANDREA ESPINOZA Primary Care Unavailable OSVALDO DICKINSON Attending Unavailable VARGHESE CAAL Referring Unavailable ANDREA ESPINOZA Primary Care Unavailable Allergies Allergy Classification Reported Allergen(s) Allergy Type Date of Onset Reaction(s) Facility (9 sources) Enalapril; 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: [enalapril] Drug Allergy 02-10-20 23 Cough [facility] (17 sources) Metoprolol; 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: [metoprolol] Drug Allergy 10-12-19 23 Cough, Unknown [facility] y 250 DO Work Phone: (3 sources) Fosinopril; 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: [Monopril] Drug Allergy 03-16-20 14 [facility] Repository (1 source) Metoprolol Drug Allergy 05-16-19 15 [facility] (1 source) strawberry allergenic extract Drug Allergy 05-16-19 15 [facility] (1 source) tomato allergenic extract Drug Allergy 05-16-19 15 [facility] (2 sources) hydroCHLOROthiazide / Metoprolol; 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: [hydrochlorothiazide-m etoprolol] Drug Allergy [facility] Repository (2 sources) [place]; 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: [Strawberries] Food allergy (disorder) [facility] Rep[facility] (2 sources) Tomatoes; 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: [Tomatoes] Food allergy (disorder) [facility] Repository (6 sources) Fosinopril; 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: [FOSINOPRIL] [...] sources) Polyene Antifungal Start: 08-10-2023 nystatin (Mycostatin) [id number] UNIT/GM powder Indications: Erythema intertrigo Apply to [...] Start: 01-14-2021 [facility] 2 tablets [facility] Spironolactone 25 MG [...] disease (2 sources) Atherosclerotic heart disease of [place] coronary artery without angina pectoris; 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: [Old [...] 06-01-2022 10-11-2022 Chronic Other aftercare (1 source) custodial (current) use of aspirin; 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: [RADIOLOGY AIDE CURRENT USE OF ASPIRIN] Onset: 06-01-2022 Episodic Other aftercare (1 source) 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 on 02/26/24 for severe UTI & [...] further bleeding since then. Pt went to [place] [facility] 02/26/24 d/t persistent dysuria. Admitted for [...] 124ml Told him to continue Alfuzosin. Ordered: [id number] Measure Post Void residual urine and/or bladder [...] Urnls Dip Stick Auto w/o Microscopy POC 90527 3. 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 Follow-up [...] Hypercholesteremia Inco (more content not included)... Normal [facility] Comment on above: Result Comment: Elec tronically Signed By: NATA TA PA-C\Date and Time Signed: 03/02/24 17:13 EST\.br\Electronically Co-Signed By: Martir hSea\Date and Time Co-Signed: 03/02/24 13:38 EST ECG 12 Leadon 03-01-2024 AV paced rhythm [facility] Work Phone: URINE CULTUREon 02-19-2024 Bacteria identified Cx Nom (U) CULTURE RESULTS 10-50,000 ORGANISMS/mL NORMAL UROGENITAL ELIN Normal [facility] Comment on above: Performed By: #### 6 30-4 #### [facility] ([id number]) [address], [address] [place] [address] URN MACROSCOPIC NURon 2023 BILIRUBIN LETHA Negative Normal NEG [facility] Comment on above: Performed By: #### N UM #### [facility] ([id number]) [address] [place] [address]110[address] BLOOD/HGB LETHA Large Abnormal NEG [facility] Comment on above: Performed By: #### N UM #### [facility] ([id number]) [address] [place] [address] 24403 GLUCOSE LETHA >=1000 Abnormal NEG [facility] Comment on above: Performed By: #### N UM #### [facility] ([id number]) [address] [place] [address] 48934 KETONES LETHA Negative Normal NEG [facility] Comment on above: Performed By: #### N UM #### [facility] ([id number]) [address] [place] [address] 49249 LEUKOCYTE ESTERASE LETHA Small Abnormal NEG [facility] Comment on above: Performed By: #### N UM #### [facility] ([id number]) [address] [place] [address] 11472 NITRITE LETHA Negative Normal [facility] Comment on above: Performed By: #### N UM #### [facility] ([id number]) [address] [place] [address] 25354 PH LETHA 6.0 Normal 5.0-8.5 [facility] Comment on above: Performed By: #### N UM #### [facility] ([id number]) [address] [place] [address] 85685 PROTEIN LETHA 100 mg/dL Abnormal NEG [facility] Comment on above: Performed By: #### N UM #### [facility] ([id number]) [address] [place] [address] 38731 SPECIFIC GRAVITY LETHA 1.015 Normal 1.003-1.035 [facility] Comment on above: Performed By: #### N UM #### [facility] ([id number]) [address] [place] [address] 37276 UROBILINOGEN LETHA 0.2 eu/dL Normal <1.1 [facility] Comment on above: Performed By: #### N UM #### [facility] ([id number]) [address] [place] [address] 36446 Inpatient Patient Summaryon 02-14-2024 Inpatient Patient Summary Inpatient Patient Summary [place] [address] Clinical Summary Person Information Name: LEIGHTON ARCINIEGA Age: 78 Years : 1945 Sex: Male PCP: Lori Medina MD Marital Status: Race: White Ethnicity: Non- or Language: Kyrgyz Visit Id: Visit Reason: BPH WITH URINARY OBSTRUCTION Speciality: Acuity: Enc Type: Outpatient Med Service: Surgery Arrival: 02/14/2024 09:35:51 Discharge: Dispo Type: Address: Danie TONEY [address] [place] [phone] Provider Notes: Diagnosis: BPH with obstruction/lower urinary [...] day as needed for pain. acetaminophen-hydroc odone ([place] 325 mg-5 mg oral tablet) 1 Tablets [...] EU - Rezum Discharge Instructions (CUSTOM) Normal [facility] Main OR Intraoperative Recor don 02-14-2024 Main OR Intraoperative Record Main OR Intraoperative Record IntraOp Document Type FTURO Summary Primary Physician: Mica Car MD Finalized Date/Time: 02/14/24 12:08:58 Pt. Name: LEIGHTON ARCINIEGA D.O.B./Sex: 1945 Male Med Rec #: [id number] Physician: Mica Car MD Financial #: [id number] Pt. Type: O Room/Bed: / Admit/Disch: 02/14/24 [...] 3 Case Attendee Josep SANDHU, Jocy Perea SYRUP MIXER ASSISTANTAura Role Performed Surgeon - Primary Chronometer Assembler And Adjuster - Primary Scrub - Primary Time In [...] Corral 02/14/24 12:08 Jocy Corral 02/14/24 12:08 [facility] Main OR Preoperative Recordo n 02-14-2024 Main OR Preoperative Record Main OR Preoperative Record Holding Area Document Type FTURO Summary Primary Physician: Mica Car MD Finalized Date/Time: 02/14/24 11:48:27 Pt. Name: LEIGHTON ARCINIEGA Tyrese [place]/Sex: 1945 Male Med Rec #: [id number] Physician: Mica Car MD Financial #: [id number] Pt. Type: O Room/Bed: / Admit/Disch: 02/14/24 [...] Complaints of Pain: No Skin Integrity Intact, [place], Warm, & Dry Vitals - EU Blood Pressure 152/74 Pulse 61 bpm Respirations 18 br/min SPO2 97 % Additional None RN Reviewed Yes Specimens Collected Last Modified By: Jocy Corral 02/14/24 11:48:23 Finalized By: Jocy Corral Document Signatures Signed By: Latha David LPN 02/14/24 11:05 Jocy Corral 02/14/24 11:48 Jocy Corral 02/14/24 11:48 Normal [facility] Operative Reporton Operative Report Operative Report [...] clearer. Follow-up in 1 month PVR.. Normal [facility] Comment on above: Result Comment: Elec tronically Signed By: Mica Car MD\.br\Date and Time Signed: 02/14/24 12:03 EST Outpatient Surgery Discharge Instructionon 02-14-2024 Outpatient Surgery Discharge Instruction Outpatient Surgery Discharge Instruction [place] [id number] Patient Discharge Instructions PERSON INFORMATION Name: LEIGHTON [...] there (more content not included)... Normal [facility] Ambulatory Visit Summaryon 1 04-01-2023 Ambulatory Visit [...] Strength 500 mg oral tablet) acetaminophen-hydroc odone ([place] 325 mg-5 mg oral tablet) allopurinol (allopurinol [...] Schedule the Following Appointments Follow Up with Jospe SANDHU, MIGUELITO Richard, URO When: Comments: Johana 02/14/24 Where: Medications What How Much When Instructions Unchanged acetaminophen (Tylenol Extra Strength 500 mg oral tablet) 2 Tablets By Mouth Every day as needed for for pain Contact prescribing physician if questions or concerns Unchanged acetaminophen-hydroc odone ([place] 325 mg-5 mg oral tablet) 1 Tablets [...] omeprazole (omep (more content not included)... Normal [facility] Urology Office/Clinic Noteon 01-31-2024 Urology Office/Clinic Note Urology Office/Clinic Note Chief Complaint [facility] ER follow up HPI Staff 78 year old male patient presents today for a [facility] ER follow up 01/23/24. Pt has [...] with voice recognition artificial intelligence software, specifically [employer], [employer] and or [employer]. Substitutions may have occurred due to the [...] (N52.9: Male erectile dysfunction, unspecified) Hx of CT in 2002. Has pacemaker in place. Denies [...] in medic (more content not included)... Normal [facility] Comment on above: Result Comment: Elec tronically Signed By: MICHAEL Sr APRN, [place] X\.br\Date and Time Signed: 01/31/24 16:26 EST URINE CULTUREon 01-24-2024 Bacteria identified Cx Nom (U) CULTURE RESULTS NO GROWTH AT <1000 CFU/mL Normal [facility] Comment on above: Performed By: #### 6 30-4 #### [facility] ([id number]) [address] [place] [address], [address] [place] [address] URN MACROSCOPIC NURon 2023 BILIRUBIN LETHA Negative Normal NEG [facility] Comment on above: Performed By: #### N UM #### [facility] ([id number]) [address] [place] [address] 79572 BLOOD/HGB LETHA Trace Abnormal NEG [facility] Comment on above: Performed By: #### N UM #### [facility] ([id number]) [address] [place] [address] 16044 GLUCOSE LETHA >=1000 Abnormal NEG [facility] Comment on above: Performed By: #### N UM #### [facility] ([id number]) [address] [place] [address] 56637 KETONES LETHA Negative Normal NEG [facility] Comment on above: Performed By: #### N UM #### [facility] ([id number]) [address] [place] [address] 31980 LEUKOCYTE ESTERASE LETHA Large Abnormal NEG [facility] Comment on above: Performed By: #### N UM #### [facility] ([id number]) [address] [place] [address] 13674 NITRITE LETHA Negative Normal NEG [facility] Comment on above: Performed By: #### N UM #### [facility] ([id number]) [address] [place] [address] 93726 PH LETHA 6.0 Normal 5.0-8.5 [facility] Comment on above: Performed By: #### N UM #### [facility] ([id number]) [address] [place] [address] 65060 PROTEIN LETHA 100 mg/dL Abnormal NEG [facility] Comment on above: Performed By: #### N UM #### [facility] ([id number]) [address], [place] [address] SPECIFIC GRAVITY LETHA 1.015 Normal 1.003-1.035 [facility] Comment on above: Performed By: #### N UM #### [facility] ([id number]) [address] [place] [address] UROBILINOGEN LETHA 0.2 eu/dL Normal <1.1 [facility] Comment on above: Performed By: #### N UM #### [facility] ([id number]) [address] [place] [address] 03714 Inpatient Patient Summaryon 12-27-2023 Inpatient Patient Summary Inpatient Patient Summary [address] [address] Clinical Summary Person Information Name: LEIGHTON ARCINIEGA Age: 78 Years : 1945 Sex: Male PCP: Lori Medina MD Marital Status: Race: White Ethnicity: Non- or Language: Kyrgyz Visit Id: Visit Reason: BPH WITH URINARY OBSTRUCTION Speciality: Acuity: Enc Type: Outpatient Med Service: Surgery Arrival: 12/27/2023 09:33:05 Discharge: Dispo Type: Address: [address] [place] [address] [address] [place] [phone] Provider Notes: Diagnosis: Anticoagulated; Other obstructive and [...] day as needed for pain. acetaminophen-hydroc odone (Logan[place] 325 mg-5 mg oral tablet) 1 Tablets [...] When: Mica Car Comments: Office to schedule [facility] Type Location Start Finish State NCV Pacemaker (FT) FT.CARDIO 06/01/2024 11:00 AM 06/01/2024 11:15 AM Confirmed Patient Education Information: EU - Cystoscopy Discharge Instructions (CUSTOM) [facility] Main OR Intraoperative Recor don 12-27-2023 Main OR Intraoperative Record Main OR Intraoperative Record IntraOp Document Type FTURO Summary Primary Physician: Mica Car MD Finalized Date/Time: 12/27/23 11:42:38 Pt. Name: LEIGHTON ARCINIEGA/Sex: 1945 Male Med Rec #: [id number] Physician: Mica Car MD Financial #: [id number] Pt. Type: O Room/Bed: / Admit/Disch: 12/27/23 [...] Micky Vargas Role Performed Surgeon - Primary Chronometer Assembler And Adjuster - Primary Scrub - Primary Time In [...] By: Ankita Gray RN 12/27/23 11:42 Normal [facility] Main OR Preoperative Recordo n 12-27-2023 Main OR Preoperative Record Main OR Preoperative Record Holding Area Document Type FTURO Summary Primary Physician: Mica Car MD Finalized Date/Time: 12/27/23 11:02:34 Pt. Name: LEIGHTON ARCINIEGA D.O.B./Sex: 1945 Male Med Rec #: [id number] Physician: Mica Car MD Financial #: [id number] Pt. Type: O Room/Bed: / Admit/Disch: 12/27/23 [...] Complaints of Pain: No Skin Integrity Intact, [place], Warm, & Dry Vitals - EU Blood Pressure 122/75 Pulse 81 bpm Respirations 18 br/min SPO2 96 % Additional None Specimens Collected Last Modified By: Latha David LPN 12/27/23 11:01:13 Finalized By: Latha David LPN Document Signatures Signed By: Latha David LPN 12/27/23 11:01 Latha David LPN 12/27/23 11:02 Normal [facility] Operative Reporton Operative Report Operative Report Patient: LEIGHTON ARCINIEGA Age: 78 years Sex: Male : 1945 Associated Diagnoses: None Author: Mica Car MD Procedure Operative Information Details: Date/ Time: 12/27/2023 12:10:00. Pre-Op Dx: BPH w/ LUTS - N40.1. Post-Op Dx: Feeling of incomplete bladder emptying (AGP61-DT R39.14, Working, Medical), Anticoagulated (JBJ33-ST Z79.01, Discharge, Medical), Same. Anesthesia Type: Local. [...] and Valium prior to procedure. 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 -Will need blood thinners held prior to procedure. Elevated risk of bleeding discussed. -Patient did better on terazosin. Will DC tamsulosin and restart terazosin 10 mg daily. Medication sent to [facility] in [place].. Normal [facility] Comment on above: Result Comment: Elec tronically Signed By: Mica Car MD\.br\Date and Time Signed: 12/27/23 12:14 EDT Outpatient Surgery Discharge Instructionon 12-27-2023 Outpatient Surgery Discharge Instruction Outpatient Surgery Discharge Instruction [place] [id number] Patient Discharge Instructions PERSON INFORMATION Name: LEIGHTON [...] When: Mica Car Comments: Office to schedule [facility] Location Start [facility] Pacemaker (FT) FT.CARDIO 06/01/2024 11:00 AM 06/01/2024 [...] Date You may receive a survey from [employer] asking you to rate your care experience. Your feedback is important and will help us understand what we do well and how we can improve the quality of care we provide to you, your loved ones and our community. It?s an honor to serve you. Thank you for choosing [facility] Normal [facility] Ambulatory Visit Summaryon 0 11-12-2023 Ambulatory [...] Strength 500 mg oral tablet) acetaminophen-hydroc odone ([place] 325 mg-5 mg oral tablet) allopurinol (allopurinol [...] if questions or concerns Unchanged acetaminophen-hydroc odone ([place] 325 mg-5 mg oral tablet) 1 Tablets [...] Mouth E (more content not included)... Normal [facility] Urology Office/Clinic Noteon 11-12-2023 Urology Office/Clinic [...] (N52.9: Male erectile dysfunction, unspecified) Hx of CT in 2002. Has pacemaker in place. Denies [...] antigen) Seborr (more content not included)... Normal [facility] Comment on above: Result Comment: Elec tronically Signed By: Josep SANDHU, Mica Johns\.br\Date and Time Signed: 11/12/23 16:43 EDT\.br\Electronically Co-Signed By: Maria Luz Mejia\.br\Date and Time Co-Signed: 11/12/23 16:14 EDT PTH Intacton 10-15-2023 Parathyrin.intact [Mass/Vol] 49 pg/mL Invalid Interpretation Code 15-65 [facility] Comment on above: Result Comment: Perf ormed at: [facility] [address] [id number] PhD Carlos Singh Performed By: #### 1 [id number] #### [facility] [address] [place] [address] ED Clinical Summaryon 2023 ED Clinical Summary ED Clinical Summary [address] [address] ED Clinical Summary Person Information Name: LEIGHTON ARCINIEGA [facility] Age: 77 Years : 1945 Sex: Male Language: Kyrgyz PCP: Lori Medina MD Marital Status: Visit [...] 10/14/2023 13:18:55 10/14/2023 13:18:55 10/14/2023 13:18:55 ADDRESS: [facility] [address] [place] [address] [id number] [facility] DOC NOTES: MEDICAL INFORMATION: Prescriptions Given: New Medications [id number], [address] [place], [place] [id number], [phone] acetaminophen-hydroc odone ([place] 325 mg-5 mg oral tablet) 1 Tablets [...] EDUCATION INFORMATION: Instructions: Acute Knee Pain, Adult, Wedj-cn-Seim Follow up: With: Address: When: Andrea Espana [address] [place] [phone] Business (1) In 3 days 10/17/2023 With: Address: When: Call to schedule a follow-up appointment with your orthopedic surgeon. Use the [place] as needed for pain along with icing. . If you are unable to get in with your orthopedic surgeon, I have provided a referral for another one. In 3 days 10/17/2023 With: Address: When: Lori Medina [address] [place] [address], [facility] [place] [phone] Business (1) In 3 days DIAGNOSIS: Posterior left knee pain Normal [facility] ED Note-Physicianon 10-14-19 ED Note-Physician ED [...] he previously saw an orthopedic surgeon in [facility] for arthritis in which he will follow-up for further management of care. Patient is on Eliquis therefore I cannot prescribe him naproxen or any form of NSAID. Due to his age I did not feel a muscle relaxer was appropriate either. Based on this he is being prescribed 4 doses of [place]ville. He was educated on appropriate use of [...] q4hr for pain, 4 tab(s), Refill(s) 0, [facility][id number], 177, cm, 10/14/23 11:44:00 EDT, Height/Length Dosing, 104.8, kg, 10/14/23 11:44:00 EDT, Weight Dosing Disposition Plan Patient Discharge Condition stable Discharge Disposition home Discharge Prescription List Prescriptions Loganville 325 mg-5 mg oral tablet, 1 tab(s), Oral, q4hr, PRN Follow-up With When Contact Information Andrea Espana In 3 days 10/17/2023 EDT [address] [place] [address]- Business (1) Additional Instructions: Call to schedule a follow-up appointment with your orthopedic surgeon. Use the [place] as needed for pain along with icing. . If you are unable to get in with your orthopedic surgeon, I have provided a referral for another one. In 3 days 10/17/2023 EDT Additional Instructions: Lori Medina In 3 days [address] [facility] [place] [address]- Business (1) Additional Instructions: Patient Education Acute Knee Pain, Adult, Xbai-ao-Oyaj Attestation Patient seen and evaluated by the physician orthopedic assistant. Attending physician was present in the emergency department and supervised care. This visit was performed by both the physician and an APC. I performed all aspects of the MDM as documented. This report was transcribed using voice recognition software. Every effort was made to ensure accuracy, however, inadvertently computerized news reporter mistakes may be present. Appropriate healthcare PPE was used in evaluating this patient. The patient was placed in a mask. The healthcare provider was wearing mask, gloves, and utiliz (more content not included)... Normal [facility] Comment on above: Result Comment: Elec tronically Signed By: Vini Quinteros DO\.br\Date and Time Signed: 10/14/23 16:09 EDT\.br\Electronically Co-Signed By: Nayla William PA-C\.br\Date and Time Co-Signed: 10/14/23 13:46 EDT ED Patient Summaryon 024 ED Patient Summary ED Patient Summary [facility] [address] [place], [place] [address] Patient Discharge Instructions Person Information Name: LEIGHTON ARCINIEGA Age: 77 Years Arrival Date: 10/14/2023 11:36:13 Discharge Diagnosis: Posterior left knee pain Primary Care Physician: Lori Medina MD Provider Information Primary Provider: Vini Quinteros DO Advanced Fibrous Plasterer:Nayla William PA-C The exam and treatment you received in the Emergency Department were for an urgent problem and are not intended as complete care. It is important that you follow up with a doctor, nurse practitioner, or physician?s orthopedic assistant for ongoing care. If your symptoms [...] Follow-up Instructions: With: Address: When: Andrea Espana [address] [place], [place] [phone] Business (1) In 3 days 10/17/2023 With: Address: When: Call to schedule a follow-up appointment with your orthopedic surgeon. Use the [place] as needed for pain along with icing. . If you are unable to get in with your orthopedic surgeon, I have provided a referral for another one. In 3 days 10/17/2023 With: Address: When: Lori Medina [address] [facility] [place] [phone] Business (1) In 3 days In the event that this physician does not participate in your insurance network, please consult with your insurance company to find a nearby participating provider. Patient Education Materials: Acute Knee Pain, Adult, Myqp-is-Resj A MESSAGE TO ALL PATIENTS REGARDING OPIOIDS PRESCRIPTION OPIOIDS: WHAT YOU NEED TO KNOW Prescription opioids can be used to help relieve ccnbjelz-qh-mxoyuu pain and are often prescribed following a [...] or yo (more content not included)... Normal [facility] XR Knee Complete 4+ Views Le [...] mGy = na DAP = na Normal [facility] Screenson 06-17-2023 Screens [id number] #1.00TIFF Normal [facility] Screens [id number] #1.00TIFF Normal [facility] Ambulatory Visit Summaryon 0 06-16-2023 Ambulatory [...] SANDHU, Mica Johns Where: [facility] Patient Education 06-16-19 24 Patient Education Urology [...] these instructions at home: Medicines ? Take qxzz-mdp-rbhnpxv and prescription medicines only as told by [...] include cig (more content not included)... Normal [facility] Urology Office/Clinic Noteon 06-16-2023 Urology Office/Clinic [...] (N52.9: Male erectile dysfunction, unspecified) Hx of CT in 2002. Has pacemaker in place. Denies [...] Information Josep SANDHU, Mica Johns, URL, URO [address] [place] [address] [phone] Additional Instructions: Has f/u already scheduled 11/12/23 [...] Amputation, Tonsillectomy. (more content not included)... Normal [facility] Comment on above: Result Comment: Elec tronically Signed By: NATA TA PA-C\.br\Date and Time Signed: 06/16/23 10:56 EDT\.br\Electronically Co-Signed By: Kriss Frankel\.br\Date and Time Co-Signed: 06/16/23 10:48 EDT [place] 05-10-2023 Screens [id number] #1.00TIFF [facility] Screens [id number] #1.00TIFF [facility] Ambulatory Visit Summaryon 0 05-07-2023 Ambulatory Visit [...] NATA TA PA-C Where: [facility] Normal [address] [place] [address]- \.br\ You Need to Schedule the Following Appointments\.br\ Follow Up with NATA TA PA-C, URL When: \.br\ Comments:\.br\ 1 mos w/ PVR \.br\ Where:\.br\ [address]br\ [place] [address]\.br\ [phone]\.br\ Medications\.br\ What How Much When Instructions\.br\ New tadalafil (tadalafil 10 mg Tab) 1 Tablets By Mouth As Directed as needed for for erectile dysfunction Refills: 3 Take one tab 1 hour prior to sexual activity. Do not exceed 20mg in 48hrs. Pickup at [facility] #[id number]\.br\ New tamsulosin (tamsulosin 0.4 mg Cap) 1 Capsules By Mouth Once a day (in the evening) Refills: 11 Pickup at [facility] #[id number]\.br\ Unchanged acetaminophen (Tylenol Extra Strength 500 mg [...] or concerns \.br\ Pharmacy Information\.br\ [id number]: [address] [place], [place] [id number] [phone]\.br\ Allergies\.br\ Monopril (Dry cough)\.br\ Strawberries (rash)\.br\ Tomatoes [...] Symptoms of this condition include:\.br\ ? \ [facility] Ambulatory Visit Summary LEIGHTON ARCINIEGA :1945 [...] CHASIDY RichardL, URO When: Comments: 6 mos ([facility]) Where: [address] [place] [phone] Medications What How Much When Instructions Unchanged [...] Every da (more content not included)... Normal [facility] Patient Educationon 05-07-19 Patient Education Urology [...] these instructions at home: Medicines ? Take szxa-ora-wvebgbj and prescription medicines only as told by [...] include cig (more content not included)... Normal [facility] Urology Office/Clinic Noteon 05-07-2023 Urology Office/Clinic [...] (N52.9: Male erectile dysfunction, unspecified) Hx of CT in 2002. Has pacemaker in place. AMANDA [...] Information Josep SANDHU, Mica Johns, URL, URO [address] [place] [phone] Additional Instructions: 1 mos w/ PVR Patient Education Erectile Dysfunction I, Kriss Frankel, personally scribed for Dr. Car on 05/07/2023 15:06:02. . Documentation recorded by the scribe, Kriss Frankel, accurately reflects the services(s) I performed and decisions made by me. Authenticated by Dr. Car on 05/07/2023 16:05:51. Problem List/Past Medical History Ongoing Anticoagulated Arthritis Aspirin marshall (more content not included)... Normal [facility] Comment on above: Result Comment: Elec tronically Signed By: Mica Car MD\.br\Date and Time Signed: 05/07/23 16:06 EST\.br\Electronically Co-Signed By: Kriss Frankel\.br\Date and Time Co-Signed: 05/07/23 15:08 EST Consent for Treatmenton Consent for Treatment [id number] #1.00TIFF [facility] Consent for Treatment [id number] #1.00TIFF Normal [facility] Consent for Treatment [id number] #1.00TIFF Normal [facility] Hct & Hgbon 04-22-2023 Hematocrit (Bld) [Volume fraction] 39.0 % Normal 37.7-49.0 [facility] Comment on above: Performed By: #### 1 [id number], [id number], [id number], [id number] ####[facility] [address] [place] [address] Hemoglobin (Bld) [Mass/Vol] 12.5 g/dL Low 13.5-17.5 [facility] Comment on above: Performed By: #### 1 [id number], [id number], [id number], [id number] ####[facility] [address] [place] [address] Magnesiumon 04-22-2023 Magnesium [Mass/Vol] 1.7 mg/dL Normal 1.3-2.4 [facility] Comment on above: Performed By: #### 1 [id number], [id number], [id number], [id number] ####[facility] [address] [place] [address] PSA Totalon 04-22-2023 PSA Total 1.6 ng/mL Normal 0.1-3.5 [facility] Comment on above: Result Comment: The concentration of PSA determined by different manufacturers can vary due to differences in assay methods and reagent specificity. Values obtained from different assay methods cannot be used interchangeably. The methodology used for this result was chemiluminescence using [employer]'s Access Hybritech PSA reagent. Performed By: #### 1 [id number] ####[facility] [address] [place] [address] Physician Orderon 04-22-2023 Physician Order [id number] 85#1.00TIFF Normal [facility] Physician Order [id number] 28#1.00TIFF Normal [facility] Renal Panelon 04-22-2023 Albumin [Mass/Vol] 3.9 g/dL Normal 3.3-5.0 [facility] Comment on above: Performed By: #### 1 [id number], [id number], 08466753, [id number] ####[facility] [address] [place] [address] Anion gap [Moles/Vol] 11 mmol/L Normal 6-16 [facility] Comment on above: Performed By: #### 1 [id number], [id number], [id number], 8342073 ####[facility] [address] [place] [address] BUN/Creat Ratio 15 No Units Normal 10-20 [facility] Comment on above: Performed By: #### 1 [id number], [id number], 28011565, 0602833 ####[facility] [address] [place] [address] Calcium [Mass/Vol] 9.0 mg/dL Normal 8.9-11.1 [facility] Comment on above: Performed By: #### 1 [id number], 78023242, 35462210, [id number] ####[facility] [address] [place] [address] Chloride [Moles/Vol] 104 mmol/L Normal 101-111 [facility] Comment on above: Performed By: #### 1 [id number], 03998777, 04191002, 7583761 ####[facility] [address] [place] [address] CO2 [Moles/Vol] 29 mmol/L Normal 21-31 [facility] Comment on above: Performed By: #### 1 6004513, 85794773, 74746464, 1320280 ####[facility] [address] [place] [address] Creatinine [Mass/Vol] 1.7 mg/dL High 0.5-1.3 [facility] Comment on above: Performed By: #### 1 [id number], 29981395, 99119586, 3102698 ####[facility] [address] [place] [address] Glucose [Mass/Vol] 144 mg/dL Normal 55-199 [facility] Comment on above: Performed By: #### 1 7074029, 59391276, 87772757, 4179698 ####[facility] [address] [place] [address] Phosphate [Mass/Vol] 3.0 mg/dL Normal 1.9-4.6 [facility] Comment on above: Performed By: #### 1 [id number], 03397808, 64420069, 3450507 ####[facility] [address] [place] [address] Potassium [Moles/Vol] 3.9 mmol/L Normal 3.5-5.3 [facility] Comment on above: Performed By: #### 1 [id number], 38163853, 04045907, 6910064 ####[facility] [address] [facility] [place] [address] Sodium [Moles/Vol] 140 mmol/L Normal 135-145 [facility] Comment on above: Performed By: #### 1 0354362, 21910883, 22487608, 6756203 ####[facility] [address] [place] [address] Urea nitrogen [Mass/Vol] 26 mg/dL High 5-21 [facility] Comment on above: Performed By: #### 1 5349577, 32829204, 23733457, 6515182 ####[facility] [address] [place] [address] U Protein/Creat Ratioon 02-0 1-2024 U Creatinine 60.9 mg/dL Invalid Interpretation Code [facility] Comment on above: Performed By: #### 1 [id number] ####[facility] [address] [place] [address] U Prot/Creat Ratio 19.90 mg/gm Cr Normal .00-200.00 [facility] Comment on above: Performed By: #### 1 [id number] ####[facility] [address] [place] [address] Ur Total Protein 12.1 mg/dL Invalid Interpretation Code [facility] Comment on above: Performed By: #### 1 [id number] ####[facility] [address] [place] [address] eGFRon 04-22-2023 eGFR 41 mL/min/1.73 m2 Low >=59 [facility] Comment on above: Order Comment: Order added by Discern Expert. Performed By: #### 1 [id number], [id number], 93715904, [id number] ####[facility] [address] [place] [address] Office Visit (Cardiology)on 07-01-2022 Follow-up visit Diagnoses/Problems [...] education sheet. 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 Normal [employer] Tobacco Screening.on 023 Adult depression screening assessment No [facility] MtivityFanshawe 600 DO Work Phone: Fall risk assessment b) One or more falls in the last year [facility] Bi[facility]rixFanshawe 600 DO Work Phone: Tobacco use status CPHS b) No [facility]we 600 DO Work Phone: CBC AUTO DIFFon 05-28-2022 BASO # 0.0 103/ul Normal 0.0-0.1 [facility] Comment on above: Performed By: #### C BC #### [facility] [address] [address] [address] Susie Hale Basophils/100 WBC (Bld) 0.5 % Normal 0.2-2.0 [facility] Comment on above: Performed By: #### C BC #### [facility] [address] [address] [address] Susie Hale EO # 0.1 103/ul Normal 0.0-0.7 [facility] Comment on above: Performed By: #### C BC #### [facility] [address] [address] [address] Susie Hale Eosinophils/100 WBC (Bld) 1.8 % Normal 0.9-7.0 [facility] Comment on above: Performed By: #### C BC #### [facility] [address] [address] [address] Susei Hale Erythrocyte distribution width (RBC) [Ratio] 13.0 % Normal 11.0-15.0 [facility] Comment on above: Performed By: #### C BC #### [facility] [address] [place] [address] Dr. Susie Hale Hematocrit (Bld) [Volume fraction] 35.0 % Critically low 42.0-54.0 [facility] Comment on above: Performed By: #### C BC #### [facility] [address] [place] [address] Dr. Susie Hale Hemoglobin (Bld) [Mass/Vol] 12.2 g/dL Critically low 14.0-18.0 [facility] Comment on above: Performed By: #### C BC #### [facility] [address] [address] [address] Susie Hale IG # 0.05 10e3/ul Critically high 0.00-0.03 [facility] Comment on above: Performed By: #### C BC #### [facility] [address] [address] [address] Susie Hale IG % 0.8 % Critically high 0.0-0.[address] [facility] Comment on above: Performed By: #### C BC #### [facility] [address] [address] [address] Susie Hale LYMPH # 1.9 103/ul Normal 1.2-3.8 [facility] Comment on above: Performed By: #### C BC #### [facility] [address] [place] [address] Dr. Susie Hale Lymphocytes/100 WBC (Bld) 28.7 % Normal 20.5-60.0 [facility] Comment on above: Performed By: #### C BC #### [facility] [address] [place] [address] Dr. Susie Hale MANUAL DIFF REQ NO Normal [facility] Comment on above: Performed By: #### C BC #### [facility] [address] [place] [address] Dr. Susie Hale MCH (RBC) [Entitic mass] 32.1 pg Normal 25.9-34.0 [facility] Comment on above: Performed By: #### C BC #### [facility] [address] [place] [address] Dr. Susie Hale MCHC (RBC) [Mass/Vol] 34.9 g/dL Normal 29.9-35.2 [facility] Comment on above: Performed By: #### C BC #### [facility] [address] [place] [address] Dr. Susie Hale MCV (RBC) [Entitic vol] 92.1 fL Normal 80.0-94.0 [facility] Comment on above: Performed By: #### C BC #### [facility] [address] [place] [address] Dr. Susie Hale MONO # 0.7 103/ul Normal 0.3-0.8 [facility] Comment on above: Performed By: #### C BC #### [facility] [address] [place] [address] Dr. Susie Hale Monocytes/100 WBC (Bld) 10.9 % Normal 1.7-12.0 [facility] Comment on above: Performed By: #### C BC #### [facility] [address] [place] [address] Dr. Susie Hale NEUT # 3.7 103/ul Normal 1.4-6.5 [facility] Comment on above: Performed By: #### C BC #### [facility] [address] [place] [address] Dr. Susie Hale Neutrophils/100 WBC (Bld) 57.3 % Normal 43.0-75.0 [facility] Comment on above: Performed By: #### C BC #### [facility] [address] [place] [address] Dr. Susie Hale Platelet mean volume (Bld) [Entitic vol] 8.5 fL Critically low 9.5-13.5 [facility] Comment on above: Performed By: #### C BC #### [facility] [address] [place] [address] Dr. Susie Hale PLT 238 103/ul Normal 150-450 [facility] Comment on above: Performed By: #### C BC #### [facility] [address] [place] [address] Dr. Susie Hale RBC 3.80 106/ul Critically low 4.70-6.10 [facility] Comment on above: Performed By: #### C BC #### [facility] [address] [place] [address] Dr. Susie Hale WBC 6.5 103/ul Normal 4.0-11.0 [facility] Comment on above: Performed By: #### C BC #### [facility] [address] [place] [address] STROKE HEAD WOon [...] MAILE CANO Date: 2022-05-28 18:17 Normal [facility] PROF 14(COMP METB)on 023 Albumin [Mass/Vol] 3.5 g/dL Normal 3.4-5.0 [facility] Comment on above: Performed By: #### C MP #### [facility] [address] [place] [address] Dr. Susie Hale Albumin/Globulin [Mass ratio] 1.1 {ratio} Normal [facility] Comment on above: Performed By: #### C MP #### [facility] [address] [address] [address] Susie Hale ALP [Catalytic activity/Vol] 87 U/L Normal 46-116 [facility] Comment on above: Performed By: #### C MP #### [facility] [address] [address] [address] Susie Hale ALT [Catalytic activity/Vol] 16 U/L Normal 16-63 [facility] Comment on above: Performed By: #### C MP #### [facility] [address] [address] [address] Susie Hale Anion gap [Moles/Vol] 10.0 mmol/L Normal [facility] Comment on above: Performed By: #### C MP #### [facility] [address] [address] [address] Susie Hale AST [Catalytic activity/Vol] 14 U/L Critically low 15-37 [facility] Comment on above: Performed By: #### C MP #### [facility] [address] [address] [address] Susie Hale Bilirubin [Mass/Vol] 0.2 mg/dL Normal 0.2-1.0 [facility] Comment on above: Performed By: #### C MP #### [facility] [address] [address] [address] Susie Hale Calcium [Mass/Vol] 8.9 mg/dL Normal 8.5-10.1 [facility] Comment on above: Performed By: #### C MP #### [facility] [address] [address] [address] Susie Hale Chloride [Moles/Vol] 105 mmol/L Normal 98-107 [facility] Comment on above: Performed By: #### C MP #### [facility] [address] [address] [address] Susie Hale CO2 [Moles/Vol] 25.7 mmol/L Normal 21.0-32.0 [facility] Comment on above: Performed By: #### C MP #### [facility] [address] [address] [address] Susie Hale Creatinine [Mass/Vol] 1.87 mg/dL Critically high 0.70-1.30 [facility] Comment on above: Performed By: #### C MP #### [facility] [address] [address] [address] Susie Hale EGFR-AF GUYANESE 43 mL/min/1.73m2 Critically low >=60 [facility] Comment on above: Performed By: #### C MP #### [facility] [address] [address] [address] Susie Hale EGFR-NON AF GUYANESE 35 mL/min/1.73m2 Critically low >=60 [facility] Comment on above: Performed By: #### C MP #### [facility] [address] [address] [address] Susie Hale Globulin (S) [Mass/Vol] 3.2 g/dL Normal [facility] Comment on above: Performed By: #### C MP #### [facility] [address] [address] [address] Susie Hale Glucose [Mass/Vol] 256 mg/dL Critically high 74-106 [facility] Comment on above: Performed By: #### C MP #### [facility] [address] [place], [place] [address] Dr. Susie Hale Potassium [Moles/Vol] 3.7 mmol/L Normal 3.5-5.1 [facility] Comment on above: Performed By: #### C MP #### [facility] [address] [place], [place] [address] Dr. Susie Hale Protein [Mass/Vol] 6.7 g/dL Normal 6.4-8.2 [facility] Comment on above: Performed By: #### C MP #### [facility] [address] [place], [place] [address] Dr. Susie Hale Sodium [Moles/Vol] 137 mmol/L Normal 136-145 [facility] Comment on above: Performed By: #### C MP #### [facility] [address] [place], [place] [address] Dr. Susie Hale Urea nitrogen [Mass/Vol] 22.0 mg/dL Critically high 7.0-18.0 [facility] Comment on above: Performed By: #### C MP #### [facility] [address] [place], [place] [address] Dr. Susie Hale Urea nitrogen/Creatinin e [Mass ratio] 11.8 mg/mg Normal [facility] Comment on above: Performed By: #### C MP #### [facility] [address] [place], [place] [address] Dr. Susie Hale Office Visit (Cardiology)on 12-16-2021 [...] in adult Healthy Weight Tips; Status:Complete; Done: [id number] Some eating tips that can help you lose weight.; Status:Complete; Done: [id number] Essential hypertension Renew: Carvedilol 6.25 MG Oral Tablet; Take 1 tablet twice daily Hyperlipidemia Renew: Simvastatin 20 MG Oral Tablet; TAKE 0.5 TABLET Bedtime SocHx: Former smoker Tobacco Use Screening; Status:Complete; Done: [id number] Unlinked Stop: Aspirin 325 MG Oral Tablet [...] your visit. Device check as directed per [facility] protocol Follow up in 6-9 months Chief [...] skin r (more content not included)... Normal [employer] Tobacco Screening.on 022 Adult depression screening assessment No [facility]-Fanshawe 600 DO Work Phone: Fall risk assessment a) No falls within the last year -[facility]-Fanshawe 600 DO Work Phone: Tobacco use status CP b) No -[facility]-Fanshawe 600 DO Work Phone: PSA Total (Not a Screen)on 04-12-2020 PSA Total (Not a Screen) 1.580 ng/mL Normal 0.000-4.000 [facility] Comment on above: Result Comment: PERF ORMED BY: [place] [address] PATHOLOGIST SWITCHMAN SUPERVISOR ROB BAY M.D. Performed By: #### P SATOTAL #### [address] Tobacco Screening.on 021 Fall risk assessment a) No falls within the last year -[facility]-Jocely[address] y 250 DO Work Phone: Tobacco use status CPHS b) No -[facility]-Jocelyne[address] y 250 DO Work Phone: Vital Signs Date Time Vital Sign Value Performing Clinician Rody ace 03-01-2024 11:12-0500 Body height 177.8 cm Osvaldo Dickinson MD Work Phone: [facility] 03-01-2024 11:12-0500 Body mass index (BMI) [Ratio] 30.13 kg/m2 Osvaldo Dickinson MD Work Phone: [facility] 03-01-2024 11:12-0500 Body weight 95.25 kg Osvaldo Dickinson MD Work Phone: [facility] 03-01-2024 11:12-0500 Diastolic blood pressure 54 mm[Hg] Osvaldo Dickinson MD Work Phone: [facility] 03-01-2024 11:12-0500 Heart rate 71 /min Osvaldo Dickinson MD Work Phone: [facility] 03-01-2024 11:12-0500 Systolic blood pressure 114 mm[Hg] Osvaldo Dickinson MD Work Phone: [facility] 12-14-2023 13:17-0400 Diastolic blood pressure 70 mm[Hg] Dank Robert DO Work Phone: [facility] 12-14-2023 13:17-0400 Heart rate 68 /min Dank Robert DO Work Phone: [facility] 12-14-2023 13:17-0400 SaO2% (BldA) [Mass fraction] 97 % Dank Robert DO Work Phone: [facility] 12-14-2023 13:17-0400 Systolic blood pressure 152 mm[Hg] Dank Robert DO Work Phone: [facility] 08-25-2023 12:12-0400 Body height 177.8 cm Varghese Caal MD Work Phone: [facility] 08-25-2023 12:12-0400 Body mass index (BMI) [Ratio] 33.43 kg/m2 Varghese Caal MD Work Phone: [facility] 08-25-2023 12:12-0400 Body weight 105.69 kg Varghese Caal MD Work Phone: [facility] 08-25-2023 12:12-0400 Diastolic blood pressure 54 mm[Hg] Varghese Caal MD Work Phone: [facility] 08-25-2023 12:12-0400 Heart rate 60 /min Varghese Caal MD Work Phone: [facility] 08-25-2023 12:12-0400 Systolic blood pressure 126 mm[Hg] Varghese Caal MD Work Phone: [facility] 02-10-2023 11:37-0500 Body height 177.8 cm Varghese Caal MD Work Phone: [facility] 02-10-2023 11:37-0500 Body mass index (BMI) [Ratio] 32.28 kg/m2 Varghese Caal MD Work Phone: [facility] 02-10-2023 11:37-0500 Body weight 102.06 kg Varghese Caal MD Work Phone: [facility] 02-10-2023 11:37-0500 Diastolic blood pressure 58 mm[Hg] Varghese Caal MD Work Phone: [facility] 02-10-2023 11:37-0500 Heart rate 63 /min Varghese Caal MD Work Phone: [facility] 02-10-2023 11:37-0500 Systolic blood pressure 120 mm[Hg] Varghese Caal MD Work Phone: [facility] 07-01-2022 10:54-0400 Body height 177.8 cm Andrea Espinoza Work Phone: [facility] 600 DO Work Phone: 07-01-2022 10:54-0400 Body mass index (BMI) [Ratio] 32.71 kg/m2 Andrea Espinoza Work Phone: [facility] 600 DO Work Phone: 07-01-2022 10:54-0400 Body surface area Derived from formula 2.21 m2 Andrea Espinoza Work Phone: [facility] [employer]-Fanshawe 600 DO Work Phone: 07-01-2022 10:54-0400 Body weight 103.42 kg Andrea Espinoza Work Phone: [facility]-Fans[facility]we 600 DO Work Phone: 07-01-2022 10:54-0400 Diastolic blood pressure 64 mm[Hg] Andrea Espinoza Work Phone: [facility]-Fanshawe 600 DO Work Phone: 07-01-2022 10:54-0400 Heart rate 72 /min Andrea Vasquezroh Work Phone: [facility] 600 DO Work Phone: 07-01-2022 10:54-0400 Systolic blood pressure 118 mm[Hg] Andrea Vasquezroh Work Phone: [facility] 600 DO Work Phone: 12-16-2021 11:08-0400 Body height 177.8 cm Andrea Vasquezroh Work Phone: [facility] 600 DO Work Phone: 12-16-2021 11:08-0400 Body mass index (BMI) [Ratio] 33.86 kg/m2 Andrea Vasquezroh Work Phone: [facility] DO Work Phone: 12-16-2021 11:08-0400 Body surface area Derived from formula 2.24 m2 Andrea Vasquzeroh Work Phone: [facility] 600 DO Work Phone: 12-16-2021 11:08-0400 Body weight 107.05 kg Andrea Vasquezroh Work Phone: [facility] 600 DO Work Phone: 12-16-2021 11:08-0400 Diastolic blood pressure 64 mm[Hg] Andrea Vasquezroh Work Phone: [facility] 600 DO Work Phone: 12-16-2021 11:08-0400 Heart rate 72 /min Andrea Vasquezroh Work Phone: [facility] 600 DO Work Phone: 12-16-2021 11:08-0400 Systolic blood pressure 132 mm[Hg] Andrea Espinoza Work Phone: [facility] 600 DO Work Phone: 01-22-2021 14:36-0400 Body height 177.8 cm Andrea Espinoza Work Phone: [facility] 250 DO Work Phone: 01-22-2021 14:36-0400 Body mass index (BMI) [Ratio] 34.01 kg/m2 Andrea Espinoza Work Phone: [facility] 250 DO Work Phone: 01-22-2021 14:36-0400 Body surface area Derived from formula 2.24 m2 Andrea Espinoza Work Phone: [facility] 250 DO Work Phone: 01-22-2021 14:36-0400 Body weight 107.5 kg Andrea Espinoza Work Phone: [facility] 250 DO Work Phone: 01-22-2021 14:36-0400 Diastolic blood pressure 54 mm[Hg] Andrea Espinoza Work Phone: [facility] 250 DO Work Phone: 01-22-2021 14:36-0400 Heart rate 76 /min Andrea Espinoza Work Phone: [facility] 250 DO Work Phone: 01-22-2021 14:36-0400 Systolic blood pressure 104 mm[Hg] Andrea Espinoza Work Phone: [facility] 250 DO Work Phone: Encounters Encounter Date Encounter Type Care Provider Facility Start: 03-02-2024 End: 03-02-2024 ambulatory NATA TA Facility:[facility] Ribe[facility] Start: 03-01-2024 End: 03-01-2024 Office outpatient visit 25 minutes Osvaldo Dickinson MD Work Phone: [facility] Comment on above: Paroxysmal atrial fi brillation (Multi) (Primary Dx); Sick sinus syndrome (Multi); Pacemaker; Essential hypertension; Cardiomyopathy, unspecified type (Multi); Mixed hyperlipidemia; Stage 4 chronic kidney disease (Multi); Non-smoker; BMI 30.0-30.9,adult Start: 03-01-2024 End: 03-01-2024 ambulatory [facility] Start: 02-19-2024 End: 02-19-2024 Emergency department patient visit LORI Vallejo Fan [facility] Start: 02-18-2024 End: 02-18-2024 ambulatory Mica Car Facility:[facility] Start: 02-14-2024 End: 02-14-2024 ambulatory Mica Car Facility[facility] Start: 01-31-2024 End: 01-31-2024 ambulatory Anna Sr Facility:[facility] Start: 01-24-2024 End: 01-24-2024 Emergency department patient visit BOBO Yip ELIDIA [facility] Start: 01-17-2024 End: 01-17-2024 Office outpatient visit 25 minutes Blanca Alonso MD [facility] Phone[facility] Comment on above: Other atopic dermati tis (Primary Dx); Seborrheic keratosis; Lentigines; History of SCC (squamous cell carcinoma) of skin Start: 01-17-2024 End: 01-17-2024 ambulatory BLANCA ALONSO Not Available Start: 12-27-2023 End: 12-27-2023 ambulatory Mica Car Facility:[facility] Start: 12-14-2023 End: 12-14-2023 Bamboo flowsheet Dank Jones DO Work Phone: [facility] Start: 12-14-2023 End: 12-14-2023 Bamboo flowsheet Dank Jones DO [facility] Phone: [facility] Start: 12-14-2023 End: 12-14-2023 Office outpatient visit 25 minutes Dank Jones DO Work Phone: [facility] Comment on above: VIRGILIO (obstructive sle ep apnea) (Primary Dx); Hypersomnia; PLMD (periodic limb movement disorder); Obesity due to excess calories, unspecified classification, unspecified whether serious comorbidity present; Snoring Start: 12-14-2023 End: 12-14-2023 ambulatory DANK JONES Not Available Start: 12-09-2023 End: 12-09-2023 ambulatory Varghese Caal Facility:[facility] Start: 11-12-2023 End: 11-12-2023 ambulatory Mica Car Facility: [place] Start: 10-14-2023 End: 10-14-2023 Emergency department patient visit Vini Quinteros Facility:[facility] Start: 10-14-2023 ambulatory Barb Loza Fa cility:[facility] Start: 08-31-2023 End: 08-31-2023 ambulatory BLANCA A PETITTI Not Available Start: 08-25-2023 End: 08-25-2023 Office outpatient visit 25 minutes Varghese Caal MD Work Phone: [facility] Comment on above: Essential hypertensi on (Primary Dx); Sick sinus syndrome (Multi); Mixed hyperlipidemia; Paroxysmal atrial fibrillation (Multi); Dilated cardiomyopathy (Multi); Pacemaker; BMI 33.0-33.9,adult Start: 08-25-2023 End: 08-25-2023 ambulatory [facility] Start: 08-10-2023 End: 08-10-2023 ambulatory BLANCA A PETITTI Not Available Start: 06-16-2023 End: 06-16-2023 ambulatory NAPOLEON TA Facility:[facility] [place] Start: 05-07-2023 End: 05-07-2023 ambulatory Mica Car Facility: [place] Start: 04-22-2023 End: 04-22-2023 ambulatory Varghese Caal Facility:[facility] Start: 03-19-2023 End: 03-19-2023 ambulatory BLANCA PETITTI Not Available Start: 03-05-2023 End: 03-05-2023 ambulatory BLANCA A PETITTI Not Available Start: 02-10-2023 End: 02-10-2023 Office outpatient visit 25 minutes Varghese Caal MD Work Phone: [facility] Comment on above: Sick sinus syndrome (CMS/HCC) (Primary Dx); Mobitz type II atrioventricular block; Pacemaker; Essential hypertension; Dilated cardiomyopathy (CMS/HCC); Paroxysmal atrial fibrillation (CMS/HCC) Start: 10-22-[address] Andrea Espinoza Facility: Start: 07-01-2022 Office outpatient vi sit 25 minutes Andrea Espinoza Work Phone: [facility] 600 DO Work Phone: Start: 07-01-[address] Varghese Caal II Facility: Start: 05-28-2022 End: 05-28-[address] TRINO Lange Facility:[facility] Start: 05-14-2022 End: 05-15-2022 ambulatory MARIXA ROY Facility:[facility] Start: 04-23-[address] Andrea Espinoza Facility: Start: 12-31-2021 Rx Renewal Andrea Espinoza Work Phone: [facility] 250 DO Work Phone: Start: 12-16-2021 Office outpatient vi sit 25 minutes Andrea Espinoza [facility]: [facility] Work Phone: Start: 12-16-[address] Varghese Caal II Facility: Start: 01-22-2021 Office outpatient vi sit 25 minutes Andrea Espinoza Work Phone: [facility] DO Work Phone: Procedures Date Procedure [...] DTaP/Tdap/Td Vaccines (2 - Td or Tdap) [facility] Start: 01-25-2025 End: 01-25-2025 Patient encounter procedure 01/25/2025 1:05 PM EST Office Visit [facility] [address] [place] [address] Blanca Alonso MD [address] [place] [address] [facility] Start: 12-12-2024 End: 12-12-2024 Patient encounter procedure 12/12/2024 1:00 PM EDT Office Visit [facility] [address] [place] [address] Rox Cervantes NP [address] [place], [place] [facility] Start: 11-28-2024 Glaucoma screening Diabetes: R etinopathy Screening [facility] Start: 11-07-2024 End: 11-07-2024 Patient encounter procedure 11/07/2024 10:30 AM EDT Office Visit [place] [address] [place] [address] [place] [phone] Osvaldo Dickinson MD [address] [facility] [address] [place] [address] [facility] Start: 04-06-2024 ambulatory Ambulatory Facility:E [facility]ens[facility] Start: 03-01-2024 End: 03-01-2024 Patient encounter procedure 03/01/2024 11:00 AM EST Office Visit [address] [place] [address] Osvaldo Dickinson MD [address] [facility] [address] [place] [address] [facility] Start: 01-17-2024 End: 01-17-2024 Patient encounter procedure 01/17/2024 3:15 PM EDT Office Visit [facility] [address] [place] [phone] Blanca Alonso MD [address] [place] [address] [facility] Start: 12-14-2023 End: 12-14-2023 Patient encounter procedure 12/14/2023 1:30 PM EDT Office Visit [facility] [place] [facility] [address] [place] [phone] Dank Jones DO [address] [place] [address] Arrived [facility] Comment on above: Arrived Start: 12-01-2023 Glaucoma screening Diabetes: R etinopathy Screening [facility] Start: 08-25-2023 End: 08-25-2023 Patient encounter procedure 08/25/2023 11:40 AM EDT Office Visit [address] [place] [address] Varghese Caal MD [address] [facility] [address] [place] [address] [facility] Start: 06-05-2023 COVID-19 Vaccine () COVID-19 Vaccine () [facility] Start: 04-01-2023 COVID-19 Vaccine (6 - Moderna series) COVID-19 Vaccine (6 - Moderna series) [facility] Start: 02-10-2023 FUV, Provider: Varghese Caal, Status: Pen, Time: 11:30 AM FUV, Provider: Varghese Caal, Status: Pen, Time: 11:30 AM -[facility] 600 DO Work Phone: Start: 07-01-2022 FUV, Provider: Varghese Caal, Status: Pen, Time: 10:40 AM FUV, Provider: Varghese Caal, Status: Pen, Time: 10:40 AM -[facility] 600 DO Work Phone: Start: 09-10-2021 FUV, Provider: Varghese Caal, Status: Pen, Time: 2:30 PM FUV, Provider: Varghese Caal, Status: Pen, Time: 2:30 PM -[facility] 250 DO Work Phone: Start: 2020 RSV High Risk: (Elde rly (60+) or Population) (1 - 1-dose 75+ series) RSV High Risk: (Elderly (60+) or Population) (1 - 1-dose 75+ series) [facility] Start: 05-09-2020 Echocardiography Echocardiogram [facility] Start: 2005 RSV patient s and/or patients aged 60+ years (1 - 1-dose 60+ series) RSV patients and/or patients aged 60+ years (1 - 1-dose 60+ series) [facility] Start: 11-26-1995 Zoster Vaccines (1 of 2) Zoste r Vaccines (1 of 2) [facility] Start: 1964 Urine screening for protein Diabetes: Urine Protein Screening [facility] Start: 11-26-1963 Hepatitis C screening Hepatitis C Sc reening [facility] Start: 11-26-1955 Diabetic foot examination Diabetes: Foot Exam [facility] Start: 11-26-1955 Glaucoma screening Diabetes: R etinopathy Screening [facility] Start: 1945 Creatinine measurement Creatinine Le sarah [facility] Start: 1945 Hemoglobin A1c measurement Jennifer nicolasa: Hemoglobin A1C [facility] Start: 1945 Lipid panel Lipid Panel [facility] Start: 1945 Medicare Annual Well ness Visit Medicare Annual Wellness Visit (AWV) [facility] Start: 1945 Potassium measurement Potassium Leve l [facility] Immunizations Immunization Date Immunization Notes Care Provider Severo sneed 01-14-2022 Fluad Quadrivalent 0 .5 ML Intramuscular Prefilled Syringe Andrea Patel Pedroemmazulay Work Phone: [facility] 600 DO Work Phone: 01-14-2022 Pfizer COVID-19 Vac Bivalent 30 MCG/0.3ML Intramuscular Suspension Andrea Amanda TRIA [employer] Work Phone: [facility] 600 DO Work Phone: 09-03-2021 pneumococcal conjuga te vaccine, 13 valent Dank Robert DO Work Phone: [facility] 02-15-2021 Moderna COVID-19 Vac cine 100 MCG/0.5ML Intramuscular Suspension Andrea Patel TRIA [employer] Work Phone: [facility] 600 DO Work Phone: 01-30-2021 influenza virus vacc ine, unspecified formulation Andrea Patel Pedroemma Work Phone: [facility] 600 DO Work Phone: 11-28-2020 influenza, high dose seasonal, preservative-free Andrea Amanda TRIA [employer] Work Phone: [facility] 250 DO Work Phone: Comment on above: Series: 06-20-2020 Moderna COVID-19 Vac cine 100 MCG/0.5ML Intramuscular Suspension Andrea Patel Celso Work Phone: [facility] 600 DO Work Phone: 05-20-2020 Moderna COVID-19 Vac cine 100 MCG/0.5ML Intramuscular Suspension Andrea Espinoza Work Phone: [facility] 250 DO Work Phone: Comment on above: Series: 04-25-2020 Moderna COVID-19 Vac cine 100 MCG/0.5ML Intramuscular Suspension Andrea Espinoza Work Phone: [facility] 250 DO Work Phone: Comment on above: Series: 12-21-2019 influenza virus vacc ine, unspecified formulation Andrea Espinoza Work Phone: [facility] 600 DO Work Phone: 12-20-2018 influenza, high dose seasonal, preservative-free Andrea Patel Pedroemmazulay Work Phone: [facility] 02-19-2018 influenza virus vacc ine, unspecified formulation Andrea Espinoza Work Phone: [facility] 600 DO Work Phone: 02-19-2018 pneumococcal polysaccharide vaccine, 23 valent Andrea Amanda Pedroemmazulay Work Phone: [facility] 250 DO Work Phone: Comment on above: Series: 02-19-2018 pneumococcal vaccine , unspecified formulation Andrea Patel Pedromemazulay Work Phone: [facility] 02-18-2017 Influenza, injectabl e, Madin [place] Canine Kidney, preservative free, quadrivalent Andrea Patel Leana Work Phone: [facility] 600 DO Work Phone: 11-24-2016 influenza, high dose seasonal, preservative-free Andrea Patel Pedroemma Work Phone: [facility] 600 DO Work Phone: 12-21-2015 pneumococcal conjuga te vaccine, 13 valent Andrea Espinoza Work Phone: [facility] 250 DO Work Phone: Comment on above: Series: Payers Date Payer Category Payer Medicare [id number] 2022 [employer] ( and others) [id number] 2022 () [id number]. [id number] 2022 For Life (TFL) F [employer] LIFE [id number]. [id number] 2022 [employer] ( and others) [id number] 2010 Medicare [id number] 1.13.647. [id number] 1959 [employer] ( and others) [id number] 1959 Medicare [id number] 1945 Unknown [id number] 2.16.840.1.635817.3.579. 2.593 1945 Unknown [id number] 2.16.840.1.434220.3.579. 2.593 1945 Unknown [id number] 2.16.840.1.641258.3.579. 2.356 1945 Unknown [id number] 2.16.840.1.223138.3.579. 2.356 1945 Unknown [id number] 2.16.840.1.458459.3.579. 2.356 1945 Unknown [id number] 2.16.840.1.843408.3.579. 2.356 1945 Unknown [id number] 2.16.840.1.257546.3.579. 2.727 1945 Unknown [id number] 2.16.840.1.011751.3.579. 2.727 1945 Unknown [id number] 2.16.840.1.374622.3.579. 2.727 1945 Unknown [id number] 2.16.840.1.876245.3.579. 2.727 1945 Unknown [id number] 2.16.840.1.149208.3.579. 2.727 1945 Unknown [id number] 2.16.840.1.542638.3.579. 2.727 1945 Unknown [id number] 2.16.840.1.780836.3.579. 2.727 1945 Unknown [id number] 2.16.840.1.511358.3.579. 2.727 1945 Unknown [id number] 2.16.840.1.359624.3.579. 2.1259 1945 Unknown [id number] 2.16.840.1.721561.3.579. 2.1259 1945 Unknown [id number] 2.16.840.1.815845.3.579. 2.1259 1945 Unknown [id number] 2.16.840.1.569949.3.579. 2.1259 1945 Unknown [id number] 2.16.840.1.524483.3.579. 2.1259 1945 Unknown [id number] 2.16.840.1.438929.3.579. 2.1259 1945 Unknown [id number] 2.16.840.1.579929.3.579. 2.1286 1945 Unknown [id number] 2.16.840.1.088620.3.579. 2.1286 1945 Unknown [id number] 2.16.840.1.841673.3.579. 2.727 1945 Unknown [id number] 2.16.840.1.298555.3.579. 2.727 1945 Unknown [id number] 2.16.840.1.808196.3.579. 2.727 1945 Unknown [id number] 2.16.840.1.039889.3.579. 2.727 1945 Unknown [id number] 2.16.840.1.182469.3.579. 2.727 1945 Unknown [id number] 2.16.840.1.136951.3.579. 2.727 1945 Unknown [id number] 2.16.840.1.876388.3.579. 2.727 1945 Unknown [id number] 2.16840.1.169502.3.579. 2.1244 1945 Unknown [id number] 2.16.840.1.447500.3.579. 2.1244 Unknown Social History Date Type Detail Facility Start: 02-10-2023 End: 12-14-2023 No illicit drug use No illicit drug use -[facility] 250 DO Work Phone: Comment on above: quit , 1 PPD; Start: 02-10-2023 End: 08-25-2023 Tobacco smoking status NHIS Ex-smoker [facility] Work Phone: End: 03-22-1992 History of tobacco use Current smoker [facility] Work Phone: End: 03-22-1992 History of tobacco use Cigarette Smoker [facility] Work Phone: Start: 10-11-2022 End: 02-10-2023 Tobacco use and exposure Smokeless tobacco non-user [facility] Work Phone: Start: 02-10-2023 End: 12-14-2023 Alcohol intake Lifetime non-drinker (finding) [facility] Work Phone: Start: 02-10-2023 End: 12-14-2023 Tobacco use panel [facility] Work Phone: Start: 1945 Sex Assigned At Not on file U [facility] Work Phone: Start: 01-31-2023 End: 03-01-2024 Exposure to SARS-CoV-2 (event) Not sure [facility] Start: 10-11-2022 Tobacco smoking stat us MSIS Never smoked tobacco [facility] Clinical Notes [...] these instructions at home: Medicines ??? Take dkth-mfa-rsgllff and prescription medicines only as told by [...] provider. Document Revised: 11/27/2020 Document Reviewed: 11/27/2020 Ramen Patient Education ? 2023 [employer]. [facility] 03-01-2024 History of Present illness Narrative [...] to retrieve his recent lab work from [facility] 5. I will see him back in [...] discussion and plan. documented in this encounter [facility] Work Phone: 03-01-2024 Instructions Betzaida Denney LPN [...] instructions on exercise. documented in this encounter [facility] Work Phone: 02-14-2024 Note Patient Education Rezum [...] to the c (more content not included)... [facility] 01-31-2024 Note Patient Education Urology Acute [...] these instructions at home: Medicines ??? Take jzks-fpo-eqfffri and prescription medicines only as told by [...] provider. Document Revised: 11/27/2020 Document Reviewed: 11/27/2020 Ramen Patient Education ? 2023 [employer] Benign Prostatic Hyperplasia Benign prostatic hyperplasia (BPH) is an enlarged prostate gland that is caused by the normal aging proc (more content not included)... [facility] 01-17-2024 History of Present illness Narrative [...] OTC hydrocortisone, Terbinafine cream 1% from the [place] Current treatment: nystatin powder, tacrolimus 0.1% ointment [...] given intertriginous involvement, topical steroids contraindicated for fpc use in this area and he has [...] Visit: 1 year documented in this encounter [facility] 12-27-2023 Note Progress Note-Asaf tapia Patient: LEIGHTON [...] day(s), # 6 tab(s), Refills(s) 0, Pharmacy: [facility] #[id number], 177, cm, 12/27/23 11:02:00 EDT, Height/Length Dosing, 104, kg, 12/27/23 11:02:00 EDT, Weight Dosing [place] 325 mg-5 mg oral tablet: 1 tab(s), Oral, q6hr for pain, 4 tab(s), Refill(s) 0, Take 1 tablet an hour before procedure, post procedure prn, [facility] #[id number], 177, cm, 12/27/23 11:02:00 EDT, Height/Length Dosing, 104, kg, 12/27/23 11:02:00 EDT, Weight Dosing sildenafil 100 mg Tab: 100 mg = 1 tab(s), Oral, As Directed, PRN for erectile dysfunction, Take one tab 1 hour prior to sexual activity., # 30 tab(s), Refills(s) 3, Pharmacy: [facility] #[id number], 177.8, cm, 06/16/23 10:18:00 EDT, Height/Length Dosing, 104.8, kg, 06/16/23 10:18:... terazosin 10 mg Cap: 10 mg = 1 cap(s), Oral, Once a day (at bedtime), # 90 cap(s), Refills(s) 3, Pharmacy: [facility], 177, cm, 12/27/23 11:02:00 EDT, Height/Length Dosing, 104, kg, 12/27/23 11:02:00 EDT, Weight Dosing traMADOL 50 mg Tab: 50 mg = 1 tab(s), Oral, q6hr, Take as needed for pain., # 6 tab(s), Refills(s) 0, Pharmacy: [facility] #[id number], 177.8, cm, 11/12/23 15:35:00 EDT, Height/Length Dosing, [...] Plan: Diagnosis: Prostate hyperplasia with urinary obstruction ([id number] N40.1, Discharge, Medical), Feeling of incomplete bladder emptying ([id number] R39.14, Working, Medical), Anticoagulated ([id number] Z79.01, Discharge, Medical). 78 yo male here [...] and Valium prior to procedure. 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 The procedural risks, benefits, details, and treatment alternatives have been discussed with the patient. These include bleeding, infection, continued problems urinating, increased frequency with urgency during the healing process, painful urination, need for indwelling cathete (more content not included)... [facility] Comment on above: Result Comment: Elec [...] you have a fever over 100 degrees. [facility] 12-14-2023 History of Present illness Narrative [...] (hypertension) (CMS/HCC) Hx of psoriasis Kidney disease CT (myocardial infarction) (CMS/HCC) VIRGILIO (obstructive sleep apnea) [...] was counselled on the risk of stroke, CT, and sudden with VIRGILIO, along with the [...] Return to clinic: documented in this encounter [facility] 11-12-2023 Note Patient Education Urology Benign Prostatic [...] Follow these instructions at home: ? Take cqmc-cnb-jjynzup and prescription medicines only as told by [...] develop side effec (more content not included)... [facility] 10-14-2023 Note ED Patient Education Note [...] under your knee. General instructions ? Take zigw-axt-dspmqlg and prescription medicines only as told by [...] provider. Document Revised: 08/21/2020 Document Reviewed: 08/21/2020 Ramen Patient Education ? 2022 [employer]. [facility] 08-25-2023 History of Present illness Narrative [...] direction and in the presence of Varghese Caal MD. Provider Attestation - Scribe documentation All medical record entries made by the Scribe were at my direction and personally dictated by me. I have reviewed the chart and agree that the record accurately reflects my personal performance of the history, physical exam, discussion and plan. documented in this encounter [facility] Work Phone: 08-25-2023 Instructions Jo Ann Ferrer [...] of your visit. documented in this encounter [facility] Work Phone: 02-10-2023 History of Present illness Narrative Subjective [place]gton Arciniega is a 77 y.o. male Chief [...] recent pacemaker checks. documented in this encounter [facility] Work Phone: 02-10-2023 Instructions Alize James LPN [...] up per routine documented in this encounter [facility] Work Phone: 05-14-2022 Note PROCEDURE: XR KNEE [...] by: JOE DU Date: 2022-05-14 18:40 [facility] Evaluation note Diagnosis Sick sinus syndrome (CMS/HCC)- Primary Sinoatrial node dysfunction Mobitz type II atrioventricular block Mobitz (type) II atrioventricular block Pacemaker Cardiac pacemaker in situ Essential hypertension Unspecified essential hypertension Dilated cardiomyopathy (CMS/HCC) Other primary cardiomyopathies Paroxysmal atrial fibrillation (CMS/HCC) Atrial fibrillation documented in this encounter [facility] Work Phone: Evaluation note* Diagnosis Essential hypertension- Primary Unspecified essential hypertension Sick sinus syndrome (Multi) Sinoatrial node dysfunction Mixed hyperlipidemia Paroxysmal atrial fibrillation (Multi) Atrial fibrillation Dilated cardiomyopathy (Multi) Other primary cardiomyopathies Pacemaker Cardiac pacemaker in situ BMI 33.0-33.9,adult documented in this encounter [facility] Work Phone: Evaluation note* Diagnosis Other atopic [...] Non-smoker BMI 30.0-30.9,adult documented in this encounter [facility] Work Phone: Evaluation note* Diagnosis VIRGILIO (obstructive [...] on the basis of his improve lifestyle modification.[facility] 250 DO Work Phone: History of Present [...] the merits of diet and weight loss. 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 [facility] 600 DO Work Phone: Reason for referral (narrative)* Consultation (Routine) - Authorized Specialty Diagnoses / Procedures Referred By Contac t Referred To Contact Cardiology Diagnoses Sick sinus syndrome (CMS/HCC) Procedures Follow Up In Cardiology Varghese Caal MD [address] [place] [address] [facility], [address] [address] Varghese Caal MD [address] [place] [address] [facility] 2, [address] [address] Referral ID Status Reason Start Date Expiration Date V isits Requested Visits Authorized [id number] Authorized 02/10/2023 02/10/2024 1 1 [facility] Work Phone: Reason for referral (narrative)* Consultation (Routine) - Authorized Specialty Diagnoses / Procedures Referred By Contac t Referred To Contact Cardiology Diagnoses Sick sinus syndrome (Multi) Procedures Follow Up In Cardiology Varghese Caal MD [address], [address] [place] [address] Osvaldo Dickinson MD [address] [facility] 2, [facility] [address] [place] [address] Referral ID Status Reason Start Date Expiration Date V isits Requested Visits Authorized [id number] Authorized 08/25/2023 08/24/2024 1 1 [facility] Work Phone: Chief Complaint LEIGHTON ARCINIEGA is [...] section and content) DATE CREATED AUTHOR 04/16/2021 [facility] DATE CREATED AUTHOR AUTHOR'S ORGANIZ ATION 06/01/2022 [facility] DATE CREATED AUTHOR AUTHOR'S ORGANIZ ATION 07/03/2022 [facility] DATE CREATED AUTHOR AUTHOR'S ORGANIZ ATION 11/05/2022 [facility] DATE CREATED AUTHOR AUTHOR'S ORGANIZ ATION 11/14/2023 Nolen [facility]bo [facility] DATE CREATED AUTHOR AUTHOR'S ORGANIZ ATION 01/18/2024 [facility] DATE CREATED AUTHOR AUTHOR'S ORGANIZ ATION 02/21/2024 [facility] DATE CREATED AUTHOR AUTHOR'S ORGANIZ ATION 03/03/2024 Nolen Hamlin [facility] DATE CREATED AUTHOR AUTHOR'S ORGANIZ ATION 03/04/2024 [facility] Reason for Visit (unrecogniz ed section and content) Reason Comments Follow-up 6-9mo Reason Comments Follow-up 6-9 months Specialty Diagnoses / Procedures Referred By Contac t Referred To Contact Cardiology Diagnoses Sick sinus syndrome (Multi) Procedures Follow Up In Cardiology Varghese Caal MD [address] [place] [address], [address] [address] Varghese Caal MD [address] [place] [address] 2, [address] [address] Referral ID Status Reason Start Date Expiration Date V isits Requested Visits Authorized [id number] Authorized 02/10/2023 02/10/2024 1 1 Reason Comments Skin Check Follow-up Reason Comments Follow-up 6-9 months Specialty Diagnoses / Procedures Referred By Contac t Referred To Contact Cardiology Diagnoses Sick sinus syndrome (Multi) Procedures Follow Up In Cardiology Varghese Caal MD Traboulssi, Mourhaf, MD [address] [place] [address], [address] [address] Phone: tel: fax: Referral ID Status Reason Start Date Expiration Date V isits Requested Visits Authorized [id number] Authorized 08/25/2023 08/24/2024 1 1 Reason Comments Sleep Apnea Care Teams (unrecognized sec tion and content) Orthopedic Assistant Relationship Specialty Start Date End Date Andrea Espinoza DO [address] [place] [address] PCP - General 03/22/99 Orthopedic Assistant Relationship Specialty Start Date End Date Andrea EspinozaDO [address] [facility] [place] [address] PCP - General 03/22/99 Orthopedic Assistant Relationship Specialty Start Date End Date Lori Medina MD [address] [facility] [place] [address] PCP - General Family Medicine 10/09/22 Orthopedic Assistant Relationship Specialty Start Date End Date Andrea EspinozaDO [address] [place] [address] PCP - General 03/22/99 Orthopedic Assistant Relationship Specialty Start Date End Date Lori Medina MD [address] [place] [facility] [place] [address] PCP - General Family Medicine 10/09/22 Orthopedic Assistant Relationship Specialty Start Date End Date Lori Medina MD [address] [place] [facility] [place] [facility] [place] [address] PCP - General Family Medicine 10/09/22 FOR [...] BE BASED ON THE PRIMARY CLINICAL RECORDS. [facility] [employer] [facility]. provides no warranty or guarantee of the accuracy or completeness of information in this document.
[2024-03-11 06:19] LABS: Basophils Absolute Auto 0.1 10^3/uL (0.0-0.1); Basophils Percent Auto 0.6 % (0.2-2.0); Eosinophils Absolute Auto 0.5 10^3/uL (0.0-0.7); Eosinophils Percent Auto 4.5 % (0.9-7.0); Hematocrit 36.2 % (42.0-54.0); Hemoglobin 11.8 g/dL (14.0-18.0); Immature Granulocytes Abs Auto 0.03 10^3/uL (0.00-0.03); Immature Granulocytes Pct Auto 0.3 % (0.0-0.5); Lymphocytes Absolute Auto 2.2 10^3/uL (1.2-3.8); Lymphocytes Percent Auto 19.1 % (20.5-60.0); Mean Corpuscular HGB Conc 32.6 g/dL (29.9-35.2); Mean Corpuscular Volume 98.1 fL (80.0-94.0); Mean Platelet Volume 8.9 fL (9.5-13.5); Monocytes Percent Auto 9.1 % (1.7-12.0); Neutrophils Absolute Auto 7.5 10^3/uL (1.4-6.5); Neutrophils Percent Auto 66.4 % (43.0-75.0); Platelet Count 211 10^3/uL (150-450); Red Blood Count 3.69 10^6/uL (4.70-6.10); Red Cell Distribution Width 13.7 % (11.0-15.0); White Blood Count 11.3 10^3/uL (4.0-11.0)
[2024-03-11 06:49] LABS: Alanine Aminotransferase 16 U/L (16-63); Alkaline Phosphatase 66 U/L (46-116); Anion Gap 12.8; Aspartate Amino Transferase 10 U/L (15-37); BUN Creatinine Ratio 13.6; Bilirubin Total 0.3 mg/dL (0.2-1.0); Calcium 9.3 mg/dL (8.5-10.1); Chloride 106 mmol/L (98-107); Estimated GFR (African America 38 (>=60 mL/min/1.73m^2); Estimated GFR (Non-African Ame 31 (>=60 mL/min/1.73m^2); Glucose 165 mg/dL (74-106); Potassium 3.8 mmol/L (3.5-5.1); Sodium 142 mmol/L (136-145)
--- NOTE | 2024-03-11 09:09 | P.HP_ITS ---
HPI H&P: HPI History of Present Illness Chief complaint: uti Narrative: Patient just finished antibiotics, Cipro, for complicated UTI which required inpatient hospitalization. He been off antibiotics for 3 days, started having increasing lower abdominal pain. Nausea no emesis, difficulty eating secondary to the pain. Presented to emergency room with dehydration and acute UTI with failed outpatient treatment. Last culture grew mixed cindy, but patient was already started on antibiotics prior to collection. With significant dehydration, abdominal pain patient admitted to observation I saw patient up in the medical surgical floor, resting comfortably in bed, still complaining of lower abdominal pain. Some nausea. No emesis. No diarrhea no other fevers chills. Opioid HPI Opioid Management Most Recent Pain and Opioid Data: Last Pain Scale 0 03/11/24 09:00 03/11/24 Last Pain Assessment 03/11/24 09:00 Last ORT Total Score 0 03/11/24 04:42 03/11/24 Last ORT Risk Category Low Risk 03/11/24 04:42 03/11/24 Review of Systems ROS Status of ROS 10 or more systems reviewed and unremark able except as noted in history and below PFSH PFSH Medical History Failure of outpatient treatment ?Z78.9 - Other specified health status (ICD-10) Urinary tract infection ?N39.0 - Urinary tract infection, site not specified (ICD-10) Skin cancer ?C44.90 - Unspecified malignant neoplasm of skin, unspecified (ICD-10) Myocardial infarction ?I21.9 - Acute myocardial infarction, unspecified (ICD-10) Pacemaker ?Z95.0 - Presence of cardiac pacemaker (ICD-10) CKD (chronic kidney disease) ?N18.9 - Chronic kidney disease, unspecified (ICD-10) CAD (coronary artery disease) ?I25.10 - Atherosclerotic heart disease of [place] coronary artery without angina pectoris (ICD-10) A-fib ?I48.91 - Unspecified atrial fibrillation (ICD-10) Erectile dysfunction ?N52.9 - Male erectile dysfunction, unspecified (ICD-10) UTI (urinary tract infection) ?N39.0 - Urinary tract infection, site not specified (ICD-10) GERD (gastroesophageal reflux disease) ?K21.9 - Gastro-esophageal reflux disease without esophagitis (ICD-10) Hypertension ?I10 - Essential (primary) hypertension (ICD-10) Diabetes ?E11.9 - Type 2 diabetes mellitus without complications (ICD-10) Surgical History History of arthroscopic knee surgery ?Z98.890 - Other specified postprocedural states (ICD-10) Hx of tonsillectomy ?Z90.89 - Acquired absence of other organs (ICD-10) Family History Mother Family history of CHF (congestive heart failure) Family history of myocardial infarction Family history of hypertension Family history of diabetes mellitus Family history of COPD (chronic obstructive pulmonary disease) Grandmother Family history of CHF (congestive heart failure) Brother Family history of CHF (congestive heart failure) Family history of myocardial infarction Family history of hypertension Family history of COPD (chronic obstructive pulmonary disease) Father Kidney failure Social History (Updated 03/11/24 @ 05:00 by Aura Saeed RN) Within the past year, how often did you have a drink containing alcohol: never Score interpretation: A score less than 4 is consistent with normal alcohol consumption. Smoking status: Former smoker Non-prescribed substance use: denies use Known occupational exposures/hazards: No Highest level of school completed/degree received: Associate degree: occupational, technical, vocational program Do you want help with school or training: No Little interest or pleasure in doing things: not at all Feeling down, depressed, or hopeless: not at all Meds Home Medications and Allergies Home Medications ?Medication ?Instructions ?Recorded ?Confirmed ?Type acetaminophen 500 mg capsule 1,000 mg PO Q6H PRN fever or pain 02/26/24 03/11/24 History allopurinol 300 mg tablet 300 mg PO DAILY 02/26/24 03/11/24 History amlodipine 10 mg tablet 10 mg PO DAILY 02/26/24 03/11/24 History apixaban 5 mg tablet (Eliquis) 5 mg PO Q12H 02/26/24 03/11/24 History aspirin 81 mg tablet,delayed 81 mg PO .weekly 02/26/24 03/11/24 History release (Adult Aspirin Regimen) calcium 315 mg (as 1 tab PO DAILY 02/26/24 03/11/24 History citrate)-vitamin D3 5 mcg (200 unit) tablet (Calcium Citrate + D) carvedilol 6.25 mg tablet 6.25 mg PO Q12H 02/26/24 03/11/24 History cyanocobalamin (vitamin B-12) 1,000 mcg PO DAILY 02/26/24 03/11/24 History 1,000 mcg tablet (Vitamin B-12) empagliflozin 25 mg tablet 12.5 mg PO DAILY 02/26/24 03/11/24 History (Jardiance) ferrous sulfate 325 mg (65 mg 325 mg PO DAILY 02/26/24 03/11/24 History iron) tablet (iron) furosemide 20 mg tablet 20 mg PO Q12H 02/26/24 03/11/24 History glipizide 10 mg tablet 10 mg PO BID 02/26/24 03/11/24 History hydralazine 50 mg tablet 100 mg PO Q8H 02/26/24 03/11/24 History insulin glargine 100 unit/mL (3 24 unit subcut BID 02/26/24 03/11/24 History mL) subcutaneous pen multivitamin (Daily Multi-Vitamin 1 tab PO DAILY 02/26/24 03/11/24 History tablet) omeprazole 20 mg capsule,delayed 20 mg PO DAILY 02/26/24 03/11/24 History release semaglutide 1 mg/dose (4 mg/3 mL) 1 mg subcut QWEEK 02/26/24 03/11/24 History subcutaneous pen injector (Ozempic) sildenafil 100 mg tablet 100 mg PO Q24H PRN sexual activity 02/26/24 03/11/24 History simvastatin 20 mg tablet 20 mg PO DAILY 02/26/24 03/11/24 History spironolactone 25 mg tablet 25 mg PO DAILY 02/26/24 03/11/24 History tacrolimus 0.1 % topical ointment 1 applic topical Q12H PRN skin 02/26/24 03/11/24 History irritation terazosin 10 mg capsule 10 mg PO BEDTIME 02/26/24 03/11/24 History Allergies Allergy/AdvReac Type Severity Reaction Status Date / Time fosinopril (From Monopril) Allergy Severe shortness Verified 02/26/24 10:49 of breath metoprolol Allergy Severe shortness Verified 02/26/24 10:49 of breath strawberry Allergy Severe Rash Verified 02/26/24 13:21 Exam Constitutional Vital Signs, click to edit/add: Last Vital Signs Temp 97.9 F 03/11/24 04:42 Pulse 78 03/11/24 04:42 Resp 18 03/11/24 04:42 BP 146/95 H 03/11/24 04:42 Pulse Ox 95 03/11/24 04:42 O2 Del Method Room Air 03/11/24 04:42 Documenting provider has reviewed patient's vital signs: yes Common normals: no apparent distress HENMT Common normals: normocephalic Chest Common normals: inspection of chest normal Respiratory Common normals: normal respiratory effort and no retractions Cardio Common normals: regular rate, regular rhythm and no murmurs GI Common normals: Normal to inspection, nondistended, normoactive bowel sounds present and soft to palpation; tender Palpation: tender Details: suprapubic Back & Pelvis Common normals: thoracic and lumbar spine normal to inspection Extremity Common normals: normal to inspection and full ROM Neuro Common normals: oriented x3 Results Labs Labs: Short CBC 03/11/24 03/11/24 Range/Units 01:20 06:10 WBC 12.2 H 11.3 H (4.0-11.0) 10^3/uL Hgb 12.6 L 11.8 L (14.0-18.0) g/dL Hct 38.2 L 36.2 L (42.0-54.0) % Plt Count 248 211 (150-450) 10^3/uL BMP 03/11/24 03/11/24 01:20 06:10 Sodium 138 142 Potassium 4.1 3.8 Chloride 107 106 Carbon Dioxide 27.3 27.0 BUN 32.0 H 28.0 H Creatinine 2.32 H 2.06 H Glucose 232 H 165 H Calcium 9.6 9.3 Liver Function 03/11/24 Range/Units 06:10 Total Bilirubin 0.3 (0.2-1.0) mg/dL AST 10 L (15-37) U/L ALT 16 (16-63) U/L Alkaline Phosphatase 66 (46-116) U/L Albumin 3.0 L (3.4-5.0) g/dL Urine 03/11/24 Range/Units 01:57 Urine Color Yellow (YELLOW) Urine Clarity Turbid A (CLEAR) Urine pH 6.0 (5.0-9.0) Ur Specific [place] 1.015 (1.005-1.025) Urine Protein >=300 A (NEG/TRACE) mg/dL Urine Glucose (UA) >=1000 A (NEGATIVE) mg/dL Assessment and Plan Assessment and Plan (1) Urinary tract infection: (2) Failure of outpatient treatment: (3) Myocardial infarction: (4) Pacemaker: (5) CAD (coronary artery disease): (6) A-fib: (7) Hypertension: (8) Diabetes: Plan Admission findings: Uncontrolled high blood pressure, leukocytosis, lower abdominal pain with nausea and dehydration secondary to failed outpatient treatment of acute UTI that required previous hospitalization Acute UTI-failed outpatient treatment-start patient on IV antibiotics, Rocephin and levofloxacin. Repeating culture. Mild dehydration-history of KS did not want to give aggressive fluid resuscitation and kidney function is improving almost back to baseline today. Diabetes mellitus-continue with home medications, insulin sliding scale, sugars likely to be elevated with infection Atrial fibrillation with rapid ventricular sponsor in the past-rate controlled currently, continue with anticoagulation.. Hypertension-continue with home medications Gout-continue with home medications GERD-continue with home medications BPH-continue with home medications Admission status: Patient just came in this morning, will start off as observation, about a 50% chance that medically necessary treatment will only span 1 midnight. Starting off as observation, if unable to be discharged to home tomorrow will require inpatient hospitalization is medically necessary treatment will then span 2 midnights
[2024-03-11] MEDS: CANAGLIFLOZIN 100 MG TABLET 300 MG PO (10:09)
[2024-03-11] MEDS: PHENAZOPYRIDINE 100 MG TABLET 200 MG PO ×3 (10:09→21:00)
[2024-03-11] MEDS: ACETAMINOPHEN 500 MG TABLET 1000 MG PO (10:10)
[2024-03-11] MEDS: AMLODIPINE BESYLATE 5 MG TABLET 10 MG PO (10:10)
[2024-03-11] MEDS: HYDRALAZINE HCL 50 MG TABLET 100 MG PO ×2 (10:11→17:29)
[2024-03-11] MEDS: CALCIUM CARBONATE 600 MG/VITAMIN D3 400 IU TABLET 1 TAB PO (10:11)
[2024-03-11] MEDS: APIXABAN 5 MG TABLET PO ×2 (10:11→21:01)
[2024-03-11] MEDS: OMEPRAZOLE 20 MG CAPSULE.DR PO (10:11)
[2024-03-11] MEDS: ATORVASTATIN CALCIUM 10 MG TABLET PO (10:11)
[2024-03-11] MEDS: ALLOPURINOL 300 MG TABLET PO (10:11)
[2024-03-11] MEDS: OXYBUTYNIN CHLORIDE 5 MG TAB XL PO (10:12)
[2024-03-11] MEDS: GLIPIZIDE 10 MG TABLET PO ×2 (10:12→21:01)
[2024-03-11] MEDS: FERROUS SULFATE 325 MG TABLET PO (10:12)
[2024-03-11] MEDS: FOLIC ACID/VIT B6/VIT B12 TABLET 1 TAB PO (10:12)
[2024-03-11] MEDS: CARVEDILOL 6.25 MG TABLET PO ×2 (10:12→21:12)
[2024-03-11] MEDS: INSULIN GLARGINE 300 UNIT/3 ML INSULN.PEN 24 UNIT SQ ×2 (10:12→21:01)
[2024-03-11] MEDS: PIPERACILLIN SODIUM/TAZOBACTAM 3.375 GM in 0.9 % SODIUM CHLORIDE 50 ML IV ×2 (12:13→21:00)
[2024-03-11] MEDS: INSULIN ASPART 300 UNIT/3 ML PEN SUBQ (12:18)
[2024-03-11] MEDS: ENSURE HP 237 ML LIQUID PO ×2 (12:18→21:01)
[2024-03-11] MEDS: HYOSCYAMINE SULFATE 0.125 MG TAB.SUBL SL ×3 (12:18→21:01)
[2024-03-11] MEDS: 0.9 % SODIUM CHLORIDE 250 ML 10 ML IV (12:22)
[2024-03-11] MEDS: ONDANSETRON PF 4 MG/2 ML VIAL IV (21:01)
[2024-03-11] MEDS: TEMAZEPAM 15 MG CAPSULE PO (21:01)
[2024-03-11] MEDS: TERAZOSIN HCL 5 MG CAPSULE 10 MG PO (21:12)
[2024-03-12 00:01] VITALS: BP 129/71; PULSE 73; TEMP 36.7; O2SAT 93
[2024-03-12 00:02] VITALS: BP 129/71
[2024-03-12] MEDS: HYDRALAZINE HCL 50 MG TABLET 100 MG PO ×2 (00:02→08:56)
[2024-03-12] MEDS: HYOSCYAMINE SULFATE 0.125 MG TAB.SUBL SL ×2 (04:30→11:33)
[2024-03-12] MEDS: PIPERACILLIN SODIUM/TAZOBACTAM 3.375 GM in 0.9 % SODIUM CHLORIDE 50 ML IV ×2 (04:30→12:48)
[2024-03-12] MEDS: PHENAZOPYRIDINE 100 MG TABLET 200 MG PO ×2 (04:30→13:03)
[2024-03-12 04:36] VITALS: BP 127/65; PULSE 79; TEMP 36.6; O2SAT 94
[2024-03-12 06:32] LABS: Basophils Absolute Auto 0.1 10^3/uL (0.0-0.1); Basophils Percent Auto 0.5 % (0.2-2.0); Eosinophils Absolute Auto 0.5 10^3/uL (0.0-0.7); Eosinophils Percent Auto 5.5 % (0.9-7.0); Hematocrit 34.1 % (42.0-54.0); Hemoglobin 11.1 g/dL (14.0-18.0); Immature Granulocytes Abs Auto 0.02 10^3/uL (0.00-0.03); Immature Granulocytes Pct Auto 0.2 % (0.0-0.5); Lymphocytes Absolute Auto 1.8 10^3/uL (1.2-3.8); Lymphocytes Percent Auto 18.1 % (20.5-60.0); Mean Corpuscular HGB Conc 32.6 g/dL (29.9-35.2); Mean Corpuscular Hemoglobin 32.1 pg (25.9-34.0); Mean Corpuscular Volume 98.6 fL (80.0-94.0); Mean Platelet Volume 9.1 fL (9.5-13.5); Monocytes Absolute Auto 0.9 10^3/uL (0.3-0.8); Monocytes Percent Auto 9.2 % (1.7-12.0); Neutrophils Absolute Auto 6.5 10^3/uL (1.4-6.5); Neutrophils Percent Auto 66.5 % (43.0-75.0); Platelet Count 221 10^3/uL (150-450); Red Blood Count 3.46 10^6/uL (4.70-6.10); Red Cell Distribution Width 13.8 % (11.0-15.0); White Blood Count 9.8 10^3/uL (4.0-11.0)
[2024-03-12 06:48] LABS: Anion Gap 12.9; BUN Creatinine Ratio 14.9; Carbon Dioxide 27.1 mmol/L (21.0-32.0); Chloride 105 mmol/L (98-107); Estimated GFR (African America 44 (>=60 mL/min/1.73m^2); Estimated GFR (Non-African Ame 36 (>=60 mL/min/1.73m^2); Glucose 131 mg/dL (74-106); Sodium 141 mmol/L (136-145)
[2024-03-12 07:44] VITALS: BP 122/62; PULSE 73; TEMP 36.6; O2SAT 95
[2024-03-12] MEDS: ENSURE HP 237 ML LIQUID PO (08:50)
[2024-03-12] MEDS: INSULIN ASPART 300 UNIT/3 ML PEN SUBQ ×2 (08:51→11:35)
[2024-03-12] MEDS: INSULIN GLARGINE 300 UNIT/3 ML INSULN.PEN 24 UNIT SQ (08:52)
[2024-03-12] MEDS: ACETAMINOPHEN 500 MG TABLET 1000 MG PO (08:52)
[2024-03-12] MEDS: CANAGLIFLOZIN 100 MG TABLET 300 MG PO (08:56)
[2024-03-12] MEDS: AMLODIPINE BESYLATE 5 MG TABLET 10 MG PO (08:56)
[2024-03-12] MEDS: ASPIRIN 81 MG TABLET.DR PO (08:56)
[2024-03-12] MEDS: ALLOPURINOL 300 MG TABLET PO (08:56)
[2024-03-12] MEDS: APIXABAN 5 MG TABLET PO (08:56)
[2024-03-12] MEDS: ATORVASTATIN CALCIUM 10 MG TABLET PO (08:56)
[2024-03-12] MEDS: CARVEDILOL 6.25 MG TABLET PO (08:56)
[2024-03-12] MEDS: CALCIUM CARBONATE 600 MG/VITAMIN D3 400 IU TABLET 1 TAB PO (08:56)
[2024-03-12] MEDS: GLIPIZIDE 10 MG TABLET PO (08:57)
[2024-03-12] MEDS: OXYBUTYNIN CHLORIDE 5 MG TAB XL PO (08:57)
[2024-03-12] MEDS: FOLIC ACID/VIT B6/VIT B12 TABLET 1 TAB PO (08:57)
[2024-03-12] MEDS: OMEPRAZOLE 20 MG CAPSULE.DR PO (08:57)
[2024-03-12] MEDS: FERROUS SULFATE 325 MG TABLET PO (08:57)
[2024-03-12] MEDS: MULTIVITAMIN TABLET 1 TAB PO (09:06)
--- NOTE | 2024-03-12 10:32 | P.DS_ITS ---
DS: Providers Provider Date of admission: 03/11/24 04:20 Primary care physician: Jayy Dutta MD Consults: 03/11/24 09:02 Occupational Therapy Eval and Treat Routine Reason for consultation: Only if needed for Rehab Has provider been notified: No Physical Therapy Eval and Treat Routine Reason for consultation: Eval and Treat Has provider been notified: No DS: Diagnosis Discharge Diagnosis (1) Urinary tract infection: (2) Failure of outpatient treatment: (3) Myocardial infarction: (4) Pacemaker: (5) CAD (coronary artery disease): (6) A-fib: (7) Hypertension: (8) Diabetes: Plan Admission findings: Uncontrolled high blood pressure, leukocytosis, lower abdominal pain with nausea and dehydration secondary to failed outpatient treatment of acute UTI that required previous hospitalization Acute UTI-Improving at the time of Discharge Mild dehydration-Improving at the time of Discharge Diabetes mellitus-Improving at the time of Discharge Atrial fibrillation with rapid ventricular sponsor in the past-rate controlled currently, continue with anticoagulation.. Hypertension-continue with home medications L Gout-continue with home medications GERD-continue with home medications BPH-continue with home medications L Admission status: Patient just came in this morning, will start off as observation, about a 50% chance that medically necessary treatment will only span 1 midnight. Starting off as observation, if unable to be discharged to home tomorrow will require inpatient hospitalization is medically necessary treatment will then span 2 midnights ? DS: Summary Hospital Course Hospital Course: Patient had a complicated outpatient course and inpatient course, he was hospitalized 3 days for acute UTI with failed outpatient treatment, was improving and sent home, he stopped taking his antibiotics, 10-day course, 3 days prior to admission, so having increasing pain again on admission. Culture is pending. He is responding well to Zosyn. His numbers are back to normal in terms of his creatinine is at his baseline his white blood cell count elevated on admission is down to normal today, will maintain patient as observational status, medically necessary treatment only span 1 midnight, discharge patient to home today with follow-up closely with cultures. Continue with Augmentin. Time Spent with Patient Time attestation: Total time spent providing and/or coordinating discharge services: Exam Constitutional Vital Signs, click to edit/add: Last Vital Signs Temp 97.8 F 03/12/24 07:44 Pulse 73 03/12/24 07:44 Resp 16 03/12/24 07:44 BP 122/62 03/12/24 07:44 Pulse Ox 95 03/12/24 07:44 O2 Del Method Room Air 03/12/24 07:44 O2 Flow Rate 2 03/12/24 00:01 Documenting provider has reviewed patient's vital signs: yes Common normals: no apparent distress HENMT Common normals: normocephalic Chest Common normals: inspection of chest normal Respiratory Common normals: normal respiratory effort and no retractions Cardio Common normals: regular rate, regular rhythm and no murmurs GI Common normals: Normal to inspection, nondistended, normoactive bowel sounds present and soft to palpation; tender Palpation: tender Details: suprapubic Back & Pelvis Common normals: thoracic and lumbar spine normal to inspection Extremity Common normals: normal to inspection and full ROM Neuro Common normals: oriented x3 DS: Data Data Completed and Pending Labs on day of discharge: Labs from last 24 hours 03/12/24 05:55 WBC 9.8 RBC 3.46 L Hgb 11.1 L Hct 34.1 L MCV 98.6 H MCH 32.1 MCHC 32.6 RDW 13.8 Plt Count 221 MPV 9.1 L Neut % (Auto) 66.5 Lymph % (Auto) 18.1 L [place] % (Auto) 9.2 Eos % (Auto) 5.5 Baso % (Auto) 0.5 Neut # (Auto) 6.5 Lymph # (Auto) 1.8 [place] # (Auto) 0.9 H Eos # (Auto) 0.5 Baso # (Auto) 0.1 Abs Immat Gran (auto) 0.02 Imm/Tot Granulo (auto) 0.2 Sodium 141 Potassium 4.0 Chloride 105 Carbon Dioxide 27.1 Anion Gap 12.9 BUN 27.0 H Creatinine 1.81 H Est GFR ( Amer) 44 L Est GFR (Non-Af Amer) 36 L BUN/Creatinine Ratio 14.9 Glucose 131 H Calcium 9.0 Discharge Plan Discharge Disposition: Home, Self-Care Condition: Good Discharge Medications: New amoxicillin-pot clavulanate 875-125 mg tablet 1 tab PO Q12H Qty: 20 0RF Continued carvedilol 6.25 mg tablet 6.25 mg PO Q12H glipizide 10 mg tablet 10 mg PO BID spironolactone 25 mg tablet 25 mg PO DAILY amlodipine 10 mg tablet 10 mg PO DAILY simvastatin 20 mg tablet 20 mg PO DAILY omeprazole 20 mg capsule,delayed release(DR/EC) 20 mg PO DAILY allopurinol 300 mg tablet 300 mg PO DAILY hydralazine 50 mg tablet 100 mg PO Q8H furosemide 20 mg tablet 20 mg PO Q12H Eliquis 5 mg tablet 5 mg PO Q12H Jardiance 25 mg tablet 12.5 mg PO DAILY cyanocobalamin (vitamin B-12) [Vitamin B-12] 1,000 mcg tablet 1,000 mcg PO DAILY aspirin [Adult Aspirin Regimen] 81 mg tablet,delayed release (DR/EC) 81 mg PO .weekly calcium citrate-vitamin D3 [Calcium Citrate + D] 315 mg-5 mcg (200 unit) tablet 1 tab PO DAILY multivitamin [Daily Multi-Vitamin] Tablet 1 tab PO DAILY insulin glargine 100 unit/mL (3 mL) insulin pen 24 unit subcut BID acetaminophen 500 mg capsule 1,000 mg PO Q6H PRN (Reason: fever or pain) terazosin 10 mg capsule 10 mg PO BEDTIME Ozempic 1 mg/dose (4 mg/3 mL) pen injector 1 mg subcut QWEEK ferrous sulfate [iron] 325 mg (65 mg iron) tablet 325 mg PO DAILY sildenafil 100 mg tablet 100 mg PO Q24H PRN (Reason: sexual activity) tacrolimus 0.1 % ointment 1 applic TOPICAL Q12H PRN (Reason: skin irritation) Print Language: [place] Islander Forms: Portal Instructions
[2024-03-12 11:32] VITALS: BP 130/66; PULSE 65; TEMP 36.5; O2SAT 94
[2024-03-12 12:18] VITALS: O2SAT 93
--- NOTE | 2024-03-13 14:05 | CM.DCFOLLOWU ---
03/13- 1st attempt. No answer
[2024-03-14 13:39] LABS: BOX Test Reference Lab FRMC
--- NOTE | 2024-03-16 13:11 | CM.DCFOLLOWU ---
Person spoke with:patient How are you feeling?well How is your pain?none Did you understand your discharge instructions?yes Do you have any questions about your discharge instructions?no Were you given any prescriptions at discharge?yes Were you able to get your prescriptions filled?yes Do you understand how to take your medications as ordered?yes Do you have any questions about your follow up appointment and do you plan to keep your follow up appointment? no questions, follow up today with PCP Is there anything else that you would like to discuss?no Questions/Comments/Concerns/Other: none
== END 2024-03-12 15:30 | disposition home or self-care (01) ==
LOC: ER 04:22 → MS 04:24
PROVIDERS: Registered Nurse; Admitting Provider Family Medicine; Emergency Provider Emergency Medicine; PCP Family Medicine; Visit Provider Family Medicine
DX: N39.0 Urinary tract infection, site not specified (principal); E86.0 Dehydration; T36.8X6A Underdosing of other systemic antibiotics, initial encounter; I48.91 Unspecified atrial fibrillation; N40.0 Benign prostatic hyperplasia without lower urinary tract symptoms; K21.9 Gastro-esophageal reflux disease without esophagitis; I12.9 Hypertensive chronic kidney disease with stage 1 through stage 4 chronic kidney disease, or unspecified chronic kidney disease; N18.9 Chronic kidney disease, unspecified; E11.22 Type 2 diabetes mellitus with diabetic chronic kidney disease; I25.2 Old myocardial infarction; M10.9 Gout, unspecified; I25.10 Atherosclerotic heart disease of native coronary artery without angina pectoris; Z95.0 Presence of cardiac pacemaker; Z85.828 Personal history of other malignant neoplasm of skin; Z79.82 Long term (current) use of aspirin; Z79.01 Long term (current) use of anticoagulants; Z79.899 Other long term (current) drug therapy; Z79.4 Long term (current) use of insulin; Z79.84 Long term (current) use of oral hypoglycemic drugs; Z79.85 Long-term (current) use of injectable non-insulin antidiabetic drugs; Z88.8 Allergy status to other drugs, medicaments and biological substances; Z87.440 Personal history of urinary (tract) infections; Z84.1 Family history of disorders of kidney and ureter; Z87.891 Personal history of nicotine dependence
CPT/HCPCS: 36415; 74018; 80048; 80053; 81001; 82948; 83735; 85025; 87040; 87086; 87106; 94761; 96365; 96366; 96367; 96375; 99285; G0378; J0696; J2405; J2543

== ENCOUNTER 2024-03-28 20:28 | Inpatient (IN) | payer MEDICARE, OTHER, SELFPAY ==
[2024-03-28 20:35] VITALS: BP 149/65; PULSE 67; TEMP 36.8; O2SAT 98; BMI 28.0
--- NOTE | 2024-03-28 20:51 | ED_ITS ---
HPI HPI - General Adult General Chief complaint: Urogenital-Male Stated complaint: URINARY ISSUES Time Seen by Provider: 03/28/24 20:37 Source: patient Mode of arrival: walk-in History of Present Illness HPI narrative: Patient is a 78-year-old male who returns to the emergency department for increasing bladder spasms. This is the patient's third visit to this emergency department in the last month, he was admitted on 2 previous visits for complicated urinary tract infection. He states he finished antibiotics 6 to 7 days ago, he states he was feeling better but has now had an increase in the bladder spasms again. He reports low abdominal/pelvic pain. He does not take any antispasmodics at home. He denies fevers, chills, nausea, vomiting. He is unsure if he is emptying his bladder completely when he urinates although he is able to pass urine. There has not been any hematuria. No flank or back pain. He had a CT scan 1 month ago for the symptoms, showing thickening of the bladder wall consistent with interstitial cystitis. He states the symptoms have been ongoing for several months. Related Data Home Medications ?Medication ?Instructions ?Recorded ?Confirmed acetaminophen 500 mg capsule 1,000 mg PO Q6H PRN fever or pain 02/26/24 03/11/24 allopurinol 300 mg tablet 300 mg PO DAILY 02/26/24 03/11/24 amlodipine 10 mg tablet 10 mg PO DAILY 02/26/24 03/11/24 apixaban 5 mg tablet (Eliquis) 5 mg PO Q12H 02/26/24 03/11/24 aspirin 81 mg tablet,delayed 81 mg PO .weekly 02/26/24 03/28/24 release (Adult Aspirin Regimen) calcium 315 mg (as 1 tab PO DAILY 02/26/24 03/28/24 citrate)-vitamin D3 5 mcg (200 unit) tablet (Calcium Citrate + D) carvedilol 6.25 mg tablet 6.25 mg PO Q12H 02/26/24 03/11/24 cyanocobalamin (vitamin B-12) 1,000 mcg PO DAILY 02/26/24 03/28/24 1,000 mcg tablet (Vitamin B-12) empagliflozin 25 mg tablet 12.5 mg PO DAILY 02/26/24 03/28/24 (Jardiance) ferrous sulfate 325 mg (65 mg 325 mg PO DAILY 02/26/24 03/11/24 iron) tablet (iron) furosemide 20 mg tablet 20 mg PO Q12H 02/26/24 03/28/24 glipizide 10 mg tablet 10 mg PO BID 02/26/24 03/28/24 hydralazine 50 mg tablet 100 mg PO Q8H 02/26/24 03/28/24 insulin glargine 100 unit/mL (3 24 unit subcut BID 02/26/24 03/28/24 mL) subcutaneous pen multivitamin (Daily Multi-Vitamin 1 tab PO DAILY 02/26/24 03/28/24 tablet) omeprazole 20 mg capsule,delayed 20 mg PO DAILY 02/26/24 03/28/24 release semaglutide 1 mg/dose (4 mg/3 mL) 1 mg subcut QWEEK 02/26/24 03/28/24 subcutaneous pen injector (Ozempic) sildenafil 100 mg tablet 100 mg PO Q24H PRN sexual activity 02/26/24 03/28/24 simvastatin 20 mg tablet 20 mg PO DAILY 02/26/24 03/28/24 spironolactone 25 mg tablet 25 mg PO DAILY 02/26/24 03/28/24 tacrolimus 0.1 % topical ointment 1 applic topical Q12H PRN skin 02/26/24 03/28/24 irritation terazosin 10 mg capsule 10 mg PO BEDTIME 02/26/24 03/28/24 Allergies Allergy/AdvReac Type Severity Reaction Status Date / Time fosinopril (From Monopril) Allergy Severe shortness Verified 02/26/24 10:49 of breath metoprolol Allergy Severe shortness Verified 02/26/24 10:49 of breath strawberry Allergy Severe Rash Verified 02/26/24 13:21 Opioid HPI Opioid Management Most Recent Opioid Data: Last Pain Scale 0 03/12/24 14:12 03/12/24 Last ORT Total Score 0 03/11/24 04:42 03/11/24 Last ORT Risk Category Low Risk 03/11/24 04:42 03/11/24 Review of Systems ROS Constitutional Denies: fever or chills Ears, nose, mouth, and throat Denies: throat pain or nasal congestion Respiratory Denies: shortness of breath Gastrointestinal Reports: abdominal pain; Denies: nausea, vomiting or diarrhea Genitourinary Reports: difficulty urinating Musculoskeletal Denies: back pain Integumentary/Breast Denies: rash Neurological Denies: numbness in extremities or weakness in extremities Hematologic/Lymphatic Reports: easy bruising and easy bleeding [facility] Medical History (Updated 03/28/24 @ 21:09 by TAMARA Vaughan) Urinary tract infection ?N39.0 - Urinary tract infection, site not specified (ICD-10) Failure of outpatient treatment ?Z78.9 - Other specified health status (ICD-10) Urinary tract infection ?N39.0 - Urinary tract infection, site not specified (ICD-10) Skin cancer ?C44.90 - Unspecified malignant neoplasm of skin, unspecified (ICD-10) Myocardial infarction ?I21.9 - Acute myocardial infarction, unspecified (ICD-10) Pacemaker ?Z95.0 - Presence of cardiac pacemaker (ICD-10) CKD (chronic kidney disease) ?N18.9 - Chronic kidney disease, unspecified (ICD-10) CAD (coronary artery disease) ?I25.10 - Atherosclerotic heart disease of [place] coronary artery without angina pectoris (ICD-10) A-fib ?I48.91 - Unspecified atrial fibrillation (ICD-10) Erectile dysfunction ?N52.9 - Male erectile dysfunction, unspecified (ICD-10) UTI (urinary tract infection) ?N39.0 - Urinary tract infection, site not specified (ICD-10) GERD (gastroesophageal reflux disease) ?K21.9 - Gastro-esophageal reflux disease without esophagitis (ICD-10) Hypertension ?I10 - Essential (primary) hypertension (ICD-10) Diabetes ?E11.9 - Type 2 diabetes mellitus without complications (ICD-10) Surgical History History of arthroscopic knee surgery ?Z98.890 - Other specified postprocedural states (ICD-10) Hx of tonsillectomy ?Z90.89 - Acquired absence of other organs (ICD-10) Family History Mother Family history of CHF (congestive heart failure) Family history of myocardial infarction Family history of hypertension Family history of diabetes mellitus Family history of COPD (chronic obstructive pulmonary disease) Grandmother Family history of CHF (congestive heart failure) Brother Family history of CHF (congestive heart failure) Family history of myocardial infarction Family history of hypertension Family history of COPD (chronic obstructive pulmonary disease) Father Kidney failure Social History Within the past year, how often did you have a drink containing alcohol: never Score interpretation: A score less than 4 is consistent with normal alcohol consumption. Smoking status: Former smoker Non-prescribed substance use: denies use Known occupational exposures/hazards: No Highest level of school completed/degree received: Associate degree: occupational, technical, vocational program Do you want help with school or training: No Little interest or pleasure in doing things: not at all Feeling down, depressed, or hopeless: not at all Exam Narrative Exam Narrative: Gen.: Awake, alert, in no distress Head: Normocephalic, atraumatic ENT: Moist mucous membranes Respiratory: No respiratory distress Gastrointestinal: Abdomen is soft, nondistended and tender to palpation in the suprapubic abdomen with no guarding or rebound Extremities: Moves extremities equally Psych: Normal mood and affect Neuro: No focal neuro deficit Skin: Warm, dry, intact Constitutional Vital Signs, click to edit/add: Last Vital Signs Temp 98.3 F 03/28/24 20:35 Pulse 67 03/28/24 20:35 Resp 16 03/28/24 20:35 BP 149/65 H 03/28/24 20:35 Pulse Ox 98 03/28/24 20:35 O2 Del Method Room Air 03/28/24 20:35 Course Vital Signs Vital signs: Vital Signs Temperature 98.3 F 03/28/24 20:35 Pulse Rate 67 03/28/24 20:35 Respiratory Rate 16 03/28/24 20:35 Blood Pressure 149/65 H 03/28/24 20:35 Pulse Oximetry 98 03/28/24 20:35 Oxygen Delivery Method Room Air 03/28/24 20:35 Temperature 98.3 F 03/28/24 20:35 Pulse Rate 67 03/28/24 20:35 Respiratory Rate 16 03/28/24 20:35 Blood Pressure 149/65 H 03/28/24 20:35 Pulse Oximetry 98 03/28/24 20:35 Oxygen Delivery Method Room Air 03/28/24 20:35 Medical Decision Making MDM Narrative Medical decision making narrative: Patient urinated on arrival to the emergency department, bladder scan was performed and postvoid residual is 50 mL in the bladder. 210: Saline lock ordered with labs. Lab studies, urine specimen are pending and case is turned over to attending physician for disposition at this time. Patient was given oxybutynin for symptoms. He is hemodynamically stable at this time. SHARED APC VISIT, PHYSICIAN ATTESTATION: [id number] I performed a substantive part of the MDM during the patient?s E/M visit. I personally evaluated and examined the patient. I personally made or approved the documented management plan and acknowledge its risk of complications. Medical Records Medical records reviewed: Yes I reviewed the patient's medical records Lab Data Lab results reviewed: Yes I reviewed the patient's lab results Labs: Lab Results 03/28/24 Range/Units 20:45 Urine Color Lt. yellow (YELLOW) Urine Clarity Clear (CLEAR) Urine pH 6.0 (5.0-9.0) Ur Specific [place] 1.015 (1.005-1.025) Urine Protein 100 A (NEG/TRACE) mg/dL Urine Glucose (UA) >=1000 A (NEGATIVE) mg/dL Urine Ketones Negative (NEGATIVE) mg/dL Urine Occult Blood Small A (NEGATIVE) Urine Nitrite Negative (NEGATIVE) Urine Bilirubin Negative (NEGATIVE) Urine Urobilinogen 0.2 (0.2-1.0) EU/dL Ur Leukocyte Esterase Moderate A (NEGATIVE) Discharge Plan Discharge Chief Complaint: Urogenital-Male Clinical Impression: Urinary tract infection, Bladder spasm Patient Disposition: Still a Patient Prescriptions / Home Meds: No Action carvedilol 6.25 mg tablet 6.25 mg PO Q12H glipizide 10 mg tablet 10 mg PO BID spironolactone 25 mg tablet 25 mg PO DAILY amlodipine 10 mg tablet 10 mg PO DAILY simvastatin 20 mg tablet 20 mg PO DAILY omeprazole 20 mg capsule,delayed release(DR/EC) 20 mg PO DAILY allopurinol 300 mg tablet 300 mg PO DAILY hydralazine 50 mg tablet 100 mg PO Q8H furosemide 20 mg tablet 20 mg PO Q12H Eliquis 5 mg tablet 5 mg PO Q12H Jardiance 25 mg tablet 12.5 mg PO DAILY cyanocobalamin (vitamin B-12) [Vitamin B-12] 1,000 mcg tablet 1,000 mcg PO DAILY aspirin [Adult Aspirin Regimen] 81 mg tablet,delayed release (DR/EC) 81 mg PO .weekly calcium citrate-vitamin D3 [Calcium Citrate + D] 315 mg-5 mcg (200 unit) tablet 1 tab PO DAILY multivitamin [Daily Multi-Vitamin] Tablet 1 tab PO DAILY insulin glargine 100 unit/mL (3 mL) insulin pen 24 unit subcut BID acetaminophen 500 mg capsule 1,000 mg PO Q6H PRN (Reason: fever or pain) terazosin 10 mg capsule 10 mg PO BEDTIME Ozempic 1 mg/dose (4 mg/3 mL) pen injector 1 mg subcut QWEEK ferrous sulfate [iron] 325 mg (65 mg iron) tablet 325 mg PO DAILY sildenafil 100 mg tablet 100 mg PO Q24H PRN (Reason: sexual activity) tacrolimus 0.1 % ointment 1 applic TOPICAL Q12H PRN (Reason: skin irritation) Print Language: [place]al[place] Referrals: Jayy Dutta MD [Primary Care Provider] - 1 week
[2024-03-28 20:59] LABS: Bilirubin Urine NEGATIVE (NEGATIVE); Blood Urine SMALL (NEGATIVE); Clarity Urine CLEAR (CLEAR); Color Urine LT. YELLOW (YELLOW); Glucose Urine UA >=1000 mg/dL (NEGATIVE); Ketones Urine NEGATIVE (NEGATIVE); Leukocyte Esterase Urine MODERATE (NEGATIVE); Nitrite Urine NEGATIVE (NEGATIVE); Protein Urine 100 mg/dL (NEG/TRACE); Specific Gravity Urine 1.015 (1.005-1.025); Urobilinogen Urine 0.2 EU/dL (0.2-1.0)
[2024-03-28 21:00] LABS: Urine Microscopic Indicated YES
[2024-03-28] MEDS: OXYBUTYNIN CHLORIDE 5 MG TAB XL 10 MG PO (21:08)
[2024-03-28 21:11] LABS: WBC Urine 75-100 #/HPF (NONE SEEN)
[2024-03-28 21:12] LABS: Bacteria Urine NONE SEEN #/HPF (NONE SEEN); Cast Seen? NONE SEEN #/LPF (NONE SEEN); Crystals Seen? None Seen #/HPF (None Seen); Mucus Urine NONE SEEN (NONE SEEN); Squamous Epithelial Cell Urine NONE SEEN #/LPF (NONE/RARE); Urine Culture Indicated YES
[2024-03-28 21:17] LABS: Basophils Percent Auto 0.3 % (0.2-2.0); Eosinophils Absolute Auto 0.2 10^3/uL (0.0-0.7); Hematocrit 37.1 % (42.0-54.0); Hemoglobin 12.1 g/dL (14.0-18.0); Immature Granulocytes Abs Auto 0.03 10^3/uL (0.00-0.03); Immature Granulocytes Pct Auto 0.5 % (0.0-0.5); Lymphocytes Absolute Auto 1.9 10^3/uL (1.2-3.8); Lymphocytes Percent Auto 28.4 % (20.5-60.0); Mean Corpuscular HGB Conc 32.6 g/dL (29.9-35.2); Mean Corpuscular Hemoglobin 31.8 pg (25.9-34.0); Mean Corpuscular Volume 97.6 fL (80.0-94.0); Mean Platelet Volume 8.6 fL (9.5-13.5); Monocytes Absolute Auto 0.9 10^3/uL (0.3-0.8); Monocytes Percent Auto 13.1 % (1.7-12.0); Neutrophils Absolute Auto 3.6 10^3/uL (1.4-6.5); Neutrophils Percent Auto 54.7 % (43.0-75.0); Platelet Count 255 10^3/uL (150-450); Red Cell Distribution Width 13.9 % (11.0-15.0); White Blood Count 6.6 10^3/uL (4.0-11.0)
[2024-03-28 21:30] LABS: Anion Gap 11.8; BUN Creatinine Ratio 16.2; Calcium 9.2 mg/dL (8.5-10.1); Carbon Dioxide 26.7 mmol/L (21.0-32.0); Chloride 105 mmol/L (98-107); Estimated GFR (African America 32 (>=60 mL/min/1.73m^2); Estimated GFR (Non-African Ame 26 (>=60 mL/min/1.73m^2); Glucose 297 mg/dL (74-106); Potassium 4.5 mmol/L (3.5-5.1); Sodium 139 mmol/L (136-145)
[2024-03-28 21:39] LABS: Lactate/Lactic Acid 0.9 mmol/L (0.4-2.0)
[2024-03-28] MEDS: CEFTRIAXONE 1,000 MG in 0.9 % SODIUM CHLORIDE 50 ML 100 MG IV (22:08)
[2024-03-28] MEDS: 0.9 % SODIUM CHLORIDE 1,000 ML 100 ML IV (22:09)
[2024-03-28 23:31] VITALS: BP 158/82; PULSE 75; TEMP 36.6; O2SAT 95; BMI 28.7
[2024-03-29] VITALS (8 sets, daily range): BP systolic 118–154; BP diastolic 53–71; PULSE 66–74; TEMP 36.3–36.5; O2SAT 94–95
[2024-03-29] MEDS: HYDRALAZINE HCL 50 MG TABLET 100 MG PO ×4 (00:06→21:07)
[2024-03-29] MEDS: APIXABAN 5 MG TABLET PO ×3 (00:07→21:07)
[2024-03-29] MEDS: CARVEDILOL 6.25 MG TABLET PO ×3 (00:07→21:07)
[2024-03-29] MEDS: TERAZOSIN HCL 5 MG CAPSULE 10 MG PO ×2 (00:10→21:07)
[2024-03-29] MEDS: 0.9 % SODIUM CHLORIDE 1,000 ML 100 ML IV (03:59)
--- NOTE | 2024-03-29 03:59 | PC.NURSE ---
Pt up to the bathroom to void. Urinal emptied and urine is very cloudy aria
[2024-03-29] MEDS: ACETAMINOPHEN 325 MG TABLET 650 MG PO (05:27)
[2024-03-29 05:53] LABS: Basophils Percent Auto 0.5 % (0.2-2.0); Eosinophils Absolute Auto 0.3 10^3/uL (0.0-0.7); Eosinophils Percent Auto 3.3 % (0.9-7.0); Hemoglobin 11.6 g/dL (14.0-18.0); Immature Granulocytes Abs Auto 0.02 10^3/uL (0.00-0.03); Immature Granulocytes Pct Auto 0.2 % (0.0-0.5); Lymphocytes Absolute Auto 2.1 10^3/uL (1.2-3.8); Lymphocytes Percent Auto 25.6 % (20.5-60.0); Mean Corpuscular HGB Conc 33.1 g/dL (29.9-35.2); Mean Corpuscular Hemoglobin 32.4 pg (25.9-34.0); Mean Corpuscular Volume 97.8 fL (80.0-94.0); Mean Platelet Volume 8.6 fL (9.5-13.5); Monocytes Absolute Auto 0.8 10^3/uL (0.3-0.8); Monocytes Percent Auto 9.9 % (1.7-12.0); Neutrophils Percent Auto 60.5 % (43.0-75.0); Platelet Count 235 10^3/uL (150-450); Red Blood Count 3.58 10^6/uL (4.70-6.10); Red Cell Distribution Width 13.8 % (11.0-15.0); White Blood Count 8.2 10^3/uL (4.0-11.0)
[2024-03-29 07:06] LABS: Alanine Aminotransferase 26 U/L (16-63); Albumin Globulin Ratio 0.9; Albumin Level 2.9 g/dL (3.4-5.0); Alkaline Phosphatase 60 U/L (46-116); Anion Gap 14.9; Aspartate Amino Transferase 19 U/L (15-37); BUN Creatinine Ratio 17.3; Bilirubin Total 0.2 mg/dL (0.2-1.0); Calcium 8.9 mg/dL (8.5-10.1); Carbon Dioxide 25.2 mmol/L (21.0-32.0); Chloride 107 mmol/L (98-107); Estimated GFR (African America 38 (>=60 mL/min/1.73m^2); Estimated GFR (Non-African Ame 31 (>=60 mL/min/1.73m^2); Globulin 3.1 g/dL; Glucose 165 mg/dL (74-106); Potassium 4.1 mmol/L (3.5-5.1); Sodium 143 mmol/L (136-145)
--- NOTE | 2024-03-29 07:51 | P.HP_ITS ---
HPI H&P: HPI History of Present Illness Chief complaint: ACUTE KIDNEY INJURY Narrative: Patient presented to the emergency room with increasing bladder spasm symptoms. Recently treated for acute UTI, has been off of antibiotics for about 5 to 6 days. Spasms return, laboratory report in the ER is normal except significant Leukos urea. I saw patient up in the medical surgical floor, resting uncomfortably secondary to lower abdominal pain. Denies chest pain or shortness of breath or any other symptoms just the lower abdominal pain, no fevers Opioid HPI Opioid Management Most Recent Pain and Opioid Data: Last Pain Scale 3 03/29/24 07:30 03/29/24 Last Pain Assessment 03/29/24 07:30 Last MAR Pain Assessment 03/29/24 05:27 Last ORT Total Score 3 03/28/24 23:31 03/28/24 Last ORT Risk Category Low Risk 03/28/24 23:31 03/28/24 Review of Systems ROS Status of ROS 10 or more systems reviewed and unremark able except as noted in history and below PFSH [facility] Medical History (Updated 03/28/24 @ 21:44 by Hector Vasquez MD) Urinary tract infection ?N39.0 - Urinary tract infection, site not specified (ICD-10) Failure of outpatient treatment ?Z78.9 - Other specified health status (ICD-10) Urinary tract infection ?N39.0 - Urinary tract infection, site not specified (ICD-10) Skin cancer ?C44.90 - Unspecified malignant neoplasm of skin, unspecified (ICD-10) Myocardial infarction ?I21.9 - Acute myocardial infarction, unspecified (ICD-10) Pacemaker ?Z95.0 - Presence of cardiac pacemaker (ICD-10) CKD (chronic kidney disease) ?N18.9 - Chronic kidney disease, unspecified (ICD-10) CAD (coronary artery disease) ?I25.10 - Atherosclerotic heart disease of [place] coronary artery without angina pectoris (ICD-10) A-fib ?I48.91 - Unspecified atrial fibrillation (ICD-10) Erectile dysfunction ?N52.9 - Male erectile dysfunction, unspecified (ICD-10) UTI (urinary tract infection) ?N39.0 - Urinary tract infection, site not specified (ICD-10) GERD (gastroesophageal reflux disease) ?K21.9 - Gastro-esophageal reflux disease without esophagitis (ICD-10) Hypertension ?I10 - Essential (primary) hypertension (ICD-10) Diabetes ?E11.9 - Type 2 diabetes mellitus without complications (ICD-10) Surgical History History of arthroscopic knee surgery ?Z98.890 - Other specified postprocedural states (ICD-10) Hx of tonsillectomy ?Z90.89 - Acquired absence of other organs (ICD-10) Family History Mother Family history of CHF (congestive heart failure) Family history of myocardial infarction Family history of hypertension Family history of diabetes mellitus Family history of COPD (chronic obstructive pulmonary disease) Grandmother Family history of CHF (congestive heart failure) Brother Family history of CHF (congestive heart failure) Family history of myocardial infarction Family history of hypertension Family history of COPD (chronic obstructive pulmonary disease) Father Kidney failure Social History Within the past year, how often did you have a drink containing alcohol: never Score interpretation: A score less than 4 is consistent with normal alcohol consumption. Smoking status: Former smoker Non-prescribed substance use: denies use Known occupational exposures/hazards: No Highest level of school completed/degree received: Associate degree: occupational, technical, vocational program Do you want help with school or training: No Little interest or pleasure in doing things: not at all Feeling down, depressed, or hopeless: not at all Gender Identity: male Meds Home Medications and Allergies Home Medications ?Medication ?Instructions ?Recorded ?Confirmed ?Type acetaminophen 500 mg capsule 1,000 mg PO Q6H PRN fever or pain 02/26/24 03/28/24 History allopurinol 300 mg tablet 300 mg PO DAILY 02/26/24 03/28/24 History amlodipine 10 mg tablet 10 mg PO DAILY 02/26/24 03/28/24 History apixaban 5 mg tablet (Eliquis) 5 mg PO Q12H 02/26/24 03/28/24 History aspirin 81 mg tablet,delayed 81 mg PO .weekly 02/26/24 03/28/24 History release (Adult Aspirin Regimen) calcium 315 mg (as 1 tab PO DAILY 02/26/24 03/28/24 History citrate)-vitamin D3 5 mcg (200 unit) tablet (Calcium Citrate + D) carvedilol 6.25 mg tablet 6.25 mg PO Q12H 02/26/24 03/28/24 History cyanocobalamin (vitamin B-12) 1,000 mcg PO DAILY 02/26/24 03/28/24 History 1,000 mcg tablet (Vitamin B-12) empagliflozin 25 mg tablet 12.5 mg PO DAILY 02/26/24 03/28/24 History (Jardiance) ferrous sulfate 325 mg (65 mg 325 mg PO DAILY 02/26/24 03/28/24 History iron) tablet (iron) furosemide 20 mg tablet 20 mg PO Q12H 02/26/24 03/28/24 History glipizide 10 mg tablet 10 mg PO BID 02/26/24 03/28/24 History hydralazine 50 mg tablet 100 mg PO Q8H 02/26/24 03/28/24 History insulin glargine 100 unit/mL (3 24 unit subcut BID 02/26/24 03/28/24 History mL) subcutaneous pen multivitamin (Daily Multi-Vitamin 1 tab PO DAILY 02/26/24 03/28/24 History tablet) omeprazole 20 mg capsule,delayed 20 mg PO DAILY 02/26/24 03/28/24 History release semaglutide 1 mg/dose (4 mg/3 mL) 1 mg subcut QWEEK 02/26/24 03/28/24 History subcutaneous pen injector (Ozempic) sildenafil 100 mg tablet 100 mg PO Q24H PRN sexual activity 02/26/24 03/28/24 History simvastatin 20 mg tablet 20 mg PO DAILY 02/26/24 03/28/24 History spironolactone 25 mg tablet 25 mg PO DAILY 02/26/24 03/28/24 History tacrolimus 0.1 % topical ointment 1 applic topical Q12H PRN skin 02/26/24 03/28/24 History irritation terazosin 10 mg capsule 10 mg PO BEDTIME 02/26/24 03/28/24 History Allergies Allergy/AdvReac Type Severity Reaction Status Date / Time fosinopril (From Monopril) Allergy Severe shortness Verified 02/26/24 10:49 of breath metoprolol Allergy Severe shortness Verified 02/26/24 10:49 of breath strawberry Allergy Severe Rash Verified 02/26/24 13:21 Exam Constitutional Vital Signs, click to edit/add: Last Vital Signs Temp 97.7 F 03/29/24 07:44 Pulse 70 03/29/24 07:44 Resp 18 03/29/24 07:44 BP 132/53 03/29/24 07:44 Pulse Ox 95 03/29/24 07:44 O2 Del Method Room Air 03/29/24 07:44 Documenting provider has reviewed patient's vital signs: yes Common normals: apparent distress (Mild painful distress) Respiratory Common normals: normal respiratory effort and no retractions Cardio Common normals: regular rate and regular rhythm GI Common normals: Normal to inspection, nondistended, normoactive bowel sounds present and soft to palpation; tender Palpation: tender (Suprapubic) Extremity Common normals: normal to inspection Results Labs Labs: Short CBC 03/28/24 03/29/24 Range/Units 21:05 05:28 WBC 6.6 8.2 (4.0-11.0) 10^3/uL Hgb 12.1 L 11.6 L (14.0-18.0) g/dL Hct 37.1 L 35.0 L (42.0-54.0) % Plt Count 255 235 (150-450) 10^3/uL BMP 03/28/24 03/29/24 21:05 05:28 Sodium 139 143 Potassium 4.5 4.1 Chloride 105 107 Carbon Dioxide 26.7 25.2 BUN 39.0 H 36.0 H Creatinine 2.41 H 2.08 H Glucose 297 H 165 H Calcium 9.2 8.9 Liver Function 03/29/24 Range/Units 05:28 Total Bilirubin 0.2 (0.2-1.0) mg/dL AST 19 (15-37) U/L ALT 26 (16-63) U/L Alkaline Phosphatase 60 (46-116) U/L Albumin 2.9 L (3.4-5.0) g/dL Urine 03/28/24 Range/Units 20:45 Urine Color Lt. yellow (YELLOW) Urine Clarity Clear (CLEAR) Urine pH 6.0 (5.0-9.0) Ur Specific [place] 1.015 (1.005-1.025) Urine Protein 100 A (NEG/TRACE) mg/dL Urine Glucose (UA) >=1000 A (NEGATIVE) mg/dL Assessment and Plan Assessment and Plan (1) Acute kidney injury: (2) Bladder spasm: (3) Urinary tract infection: Plan Admission findings: Uncontrolled hypertension, normal white blood cell count, hyperglycemia, abnormal UA with significant glucosuria, mild acute kidney injury, baseline creatinine of one 8.81, creatinine admission 2.41 which is 133% above baseline Acute UTI-review of cultures does show he has a history of [place] glabrata, not always pathogenic but in this case may be giving him his symptoms. On Rocephin for antibacterial coverage, will add high-dose Diflucan, discussed with urology Mild acute elevation in creatinine-see above-IV hydration, hold off on diuretics Diabetes mellitus-will hold off on Jardiance as may be a contributing factor to his recurrent UTIs-insulin sliding scale Hypertension-uncontrolled on admission but improved, continue with current medications GERD-continue with home medications Hypercholesterolemia continue with home medications BPH-continue with home medications Admission status: Patient placed initially in observation, adjusting medications today, discussed with urology, if unable to be medically discharged later today, he will need to be changed to inpatient status is medically necessary treatment will span 2 midnights
[2024-03-29] MEDS: OMEPRAZOLE 20 MG CAPSULE.DR PO (08:35)
[2024-03-29] MEDS: PHENAZOPYRIDINE 100 MG TABLET 200 MG PO ×3 (08:35→21:08)
[2024-03-29] MEDS: HYOSCYAMINE SULFATE 0.125 MG TAB.SUBL SL ×4 (08:35→21:08)
[2024-03-29] MEDS: INSULIN GLARGINE 300 UNIT/3 ML INSULN.PEN 24 UNIT SQ ×2 (08:35→21:09)
[2024-03-29] MEDS: GLIPIZIDE 10 MG TABLET PO ×2 (08:35→21:07)
[2024-03-29] MEDS: OXYBUTYNIN CHLORIDE 5 MG TAB XL PO (08:36)
[2024-03-29] MEDS: FLUCONAZOLE 100 MG TABLET 400 MG PO (08:36)
[2024-03-29] MEDS: FERROUS SULFATE 325 MG TABLET PO (08:36)
[2024-03-29] MEDS: AMLODIPINE BESYLATE 5 MG TABLET 10 MG PO (08:36)
[2024-03-29] MEDS: ALLOPURINOL 300 MG TABLET PO (08:36)
[2024-03-29] MEDS: ATORVASTATIN CALCIUM 10 MG TABLET PO (08:37)
[2024-03-29] MEDS: MULTIVITAMIN TABLET 1 TAB PO (08:37)
--- NOTE | 2024-03-29 11:50 | SWNOTE1 ---
Medicare Outpatient Observation Notice reviewed and discussed with patient. Pt. verbalized understanding and signed the form. Original given to patient and copy placed in patient?s chart. SW met with pt to discuss dc needs. Pt lives at home with and he is independent. Pt has no worries or concerns about discharge at this time. SW to follow as needed.
[2024-03-29] MEDS: INSULIN ASPART 300 UNIT/3 ML PEN SUBQ (13:24)
[2024-03-29 14:32] LABS: BOX Test Reference Lab FIRELANDS
--- NOTE | 2024-03-29 19:43 | NUTR.NU ---
Diet consult completed. Nutrition assessment to follow.
[2024-03-29] MEDS: ACETAMINOPHEN 500 MG TABLET 1000 MG PO (21:06)
[2024-03-29] MEDS: CEFTRIAXONE 1,000 MG in 0.9 % SODIUM CHLORIDE 50 ML 100 MG IV (21:13)
[2024-03-30 05:04] VITALS: BP 140/73; PULSE 65; TEMP 36.4; O2SAT 93
[2024-03-30] MEDS: HYDRALAZINE HCL 50 MG TABLET 100 MG PO (05:24)
[2024-03-30] MEDS: HYOSCYAMINE SULFATE 0.125 MG TAB.SUBL SL (05:24)
[2024-03-30] MEDS: PHENAZOPYRIDINE 100 MG TABLET 200 MG PO (05:24)
[2024-03-30 05:28] LABS: Basophils Absolute Auto 0.1 10^3/uL (0.0-0.1); Basophils Percent Auto 0.7 % (0.2-2.0); Eosinophils Absolute Auto 0.4 10^3/uL (0.0-0.7); Eosinophils Percent Auto 4.3 % (0.9-7.0); Hematocrit 35.1 % (42.0-54.0); Hemoglobin 11.6 g/dL (14.0-18.0); Immature Granulocytes Abs Auto 0.02 10^3/uL (0.00-0.03); Immature Granulocytes Pct Auto 0.2 % (0.0-0.5); Lymphocytes Absolute Auto 2.3 10^3/uL (1.2-3.8); Lymphocytes Percent Auto 25.9 % (20.5-60.0); Mean Corpuscular Hemoglobin 32.3 pg (25.9-34.0); Mean Corpuscular Volume 97.8 fL (80.0-94.0); Mean Platelet Volume 8.8 fL (9.5-13.5); Monocytes Absolute Auto 0.9 10^3/uL (0.3-0.8); Monocytes Percent Auto 10.5 % (1.7-12.0); Neutrophils Absolute Auto 5.2 10^3/uL (1.4-6.5); Neutrophils Percent Auto 58.4 % (43.0-75.0); Platelet Count 237 10^3/uL (150-450); Red Blood Count 3.59 10^6/uL (4.70-6.10); Red Cell Distribution Width 13.9 % (11.0-15.0); White Blood Count 8.9 10^3/uL (4.0-11.0)
[2024-03-30 05:37] LABS: BUN Creatinine Ratio 16.9; Calcium 9.1 mg/dL (8.5-10.1); Carbon Dioxide 25.2 mmol/L (21.0-32.0); Chloride 106 mmol/L (98-107); Estimated GFR (African America 51 (>=60 mL/min/1.73m^2); Estimated GFR (Non-African Ame 42 (>=60 mL/min/1.73m^2); Glucose 80 mg/dL (74-106); Potassium 4.2 mmol/L (3.5-5.1); Sodium 140 mmol/L (136-145)
[2024-03-30 07:36] VITALS: BP 140/70; PULSE 64; TEMP 36.8; O2SAT 94
--- NOTE | 2024-03-30 08:08 | P.DS_ITS ---
DS: Providers Provider Date of admission: 03/29/24 13:50 Primary care physician: Jayy Dutta MD Consults: 03/28/24 Consult to Dietitian Routine Reason for consultation: 20 lbs weight loss 03/29/24 06:50 Occupational Therapy Eval and Treat Routine Reason for consultation: Only if needed for Rehab Has provider been notified: No Physical Therapy Eval and Treat Routine Reason for consultation: Eval and Treat Has provider been notified: No DS: Diagnosis Discharge Diagnosis (1) Acute kidney injury: (2) Bladder spasm: (3) Urinary tract infection: Plan Admission findings: Uncontrolled hypertension, normal white blood cell count, hyperglycemia, abnormal UA with significant glucosuria, mild acute kidney injury, baseline creatinine of one 8.81, creatinine admission 2.41 which is 133% above baseline Acute UTI-review of cultures does show he has a history of Prudence glabrata, not always pathogenic but in this case may be giving him his symptoms. On Rocephin for antibacterial coverage, will add high-dose Diflucan, discussed with urology Mild acute elevation in creatinine-improving Diabetes mellitus-maintain off Jardiance Hypertension-stable GERD-continue with home medications Hypercholesterolemia continue with home medications BPH-continue with home medications Admission status: Patient placed initially in observation, adjusting medications today, discussed with urology, if unable to be medically discharged later today, he will need to be changed to inpatient status is medically necessary treatment will span 2 midnights ? DS: Summary Hospital Course Hospital Course: Patient presented emergency room with increasing lower abdominal pain. He felt this was somewhat different than his previous bladder infections. But your workup did not show acute UTI. He is just recently off of oral antibiotics, patient was admitted and given IV antibiotics over the 2-day hospital stay. Pain is improving but not resolved. Patient did have a positive late resulted urine culture for Prudence glabrata, so untreated for that, he was started on high-dose Diflucan, sensitivities will be unavailable for that, patient may need voriconazole if not improved with the Diflucan. Culture pending for this urinalysis, will send patient home with cefdinir, Diflucan, Levsin for spasm and Myrbetriq's for spasm. He has a follow-up visit in about 10 days with urology, keep that visit, all culture should be resulted by that point in time. Medications see list. Follow-up with PCP within the next week. Time Spent with Patient Time attestation: Total time spent providing and/or coordinating discharge services: Exam Constitutional Vital Signs, click to edit/add: Last Vital Signs Temp 98.2 F 03/30/24 07:36 Pulse 64 03/30/24 07:36 Resp 18 03/30/24 07:36 BP 140/70 03/30/24 07:36 Pulse Ox 94 L 03/30/24 07:36 O2 Del Method Room Air 03/30/24 07:36 Documenting provider has reviewed patient's vital signs: yes Common normals: apparent distress (Mild painful distress) Respiratory Common normals: normal respiratory effort and no retractions Cardio Common normals: regular rate and regular rhythm GI Common normals: Normal to inspection, nondistended, normoactive bowel sounds present and soft to palpation; tender Palpation: tender (Suprapubic-improved from previous day) Extremity Common normals: normal to inspection DS: Data Data Completed and Pending Labs on day of discharge: Labs from last 24 hours 03/30/24 03/28/24 04:55 20:47 WBC 8.9 RBC 3.59 L Hgb 11.6 L Hct 35.1 L MCV 97.8 H MCH 32.3 MCHC 33.0 RDW 13.9 Plt Count 237 MPV 8.8 L Neut % (Auto) 58.4 Lymph % (Auto) 25.9 [place] % (Auto) 10.5 Eos % (Auto) 4.3 Baso % (Auto) 0.7 Neut # (Auto) 5.2 Lymph # (Auto) 2.3 [place] # (Auto) 0.9 H Eos # (Auto) 0.4 Baso # (Auto) 0.1 Abs Immat Gran (auto) 0.02 Imm/Tot Granulo (auto) 0.2 Sodium 140 Potassium 4.2 Chloride 106 Carbon Dioxide 25.2 Anion Gap 13.0 BUN 27.0 H Creatinine 1.60 H Est GFR ( Amer) 51 L Est GFR (Non-Af Amer) 42 L BUN/Creatinine Ratio 16.9 Glucose 80 Calcium 9.1 Ref Lab Order Date 03/28/24 Ref Lab Test Name Urine culture Ref Test Addition Info [facility] Discharge Plan Discharge Disposition: Home, Self-Care Condition: Good Discharge Medications: New hyoscyamine sulfate 0.125 mg Tablet, Sublingual 0.125 mg sublingual QID Qty: 40 0RF mirabegron [Myrbetriq] 25 mg tablet extended release 24 hr 25 mg PO DAILY Qty: 30 11RF cefdinir 300 mg capsule 600 mg PO DAILY Qty: 30 0RF fluconazole [Diflucan] 200 mg tablet 400 mg PO DAILY 30 Days Qty: 60 0RF Continued carvedilol 6.25 mg tablet 6.25 mg PO Q12H glipizide 10 mg tablet 10 mg PO BID spironolactone 25 mg tablet 25 mg PO DAILY amlodipine 10 mg tablet 10 mg PO DAILY simvastatin 20 mg tablet 20 mg PO DAILY omeprazole 20 mg capsule,delayed release(DR/EC) 20 mg PO DAILY allopurinol 300 mg tablet 300 mg PO DAILY hydralazine 50 mg tablet 100 mg PO Q8H furosemide 20 mg tablet 20 mg PO Q12H Eliquis 5 mg tablet 5 mg PO Q12H cyanocobalamin (vitamin B-12) [Vitamin B-12] 1,000 mcg tablet 1,000 mcg PO DAILY aspirin [Adult Aspirin Regimen] 81 mg tablet,delayed release (DR/EC) 81 mg PO .weekly calcium citrate-vitamin D3 [Calcium Citrate + D] 315 mg-5 mcg (200 unit) tablet 1 tab PO DAILY multivitamin [Daily Multi-Vitamin] Tablet 1 tab PO DAILY insulin glargine 100 unit/mL (3 mL) insulin pen 24 unit subcut BID acetaminophen 500 mg capsule 1,000 mg PO Q6H PRN (Reason: fever or pain) terazosin 10 mg capsule 10 mg PO BEDTIME Ozempic 1 mg/dose (4 mg/3 mL) pen injector 1 mg subcut QWEEK ferrous sulfate [iron] 325 mg (65 mg iron) tablet 325 mg PO DAILY sildenafil 100 mg tablet 100 mg PO Q24H PRN (Reason: sexual activity) tacrolimus 0.1 % ointment 1 applic TOPICAL Q12H PRN (Reason: skin irritation) Discontinued Jardiance 25 mg tablet 12.5 mg PO DAILY Print Language: Khmer Forms: Portal Instructions
[2024-03-30] MEDS: GLIPIZIDE 10 MG TABLET PO (09:38)
[2024-03-30] MEDS: ALLOPURINOL 300 MG TABLET PO (09:38)
[2024-03-30] MEDS: FERROUS SULFATE 325 MG TABLET PO (09:38)
[2024-03-30] MEDS: AMLODIPINE BESYLATE 5 MG TABLET 10 MG PO (09:38)
[2024-03-30] MEDS: APIXABAN 5 MG TABLET PO (09:38)
[2024-03-30] MEDS: FLUCONAZOLE 100 MG TABLET 400 MG PO (09:38)
[2024-03-30] MEDS: CALCIUM CARBONATE 600 MG/VITAMIN D3 400 IU TABLET 1 TAB PO (09:39)
[2024-03-30] MEDS: MULTIVITAMIN TABLET 1 TAB PO (09:39)
[2024-03-30] MEDS: OXYBUTYNIN CHLORIDE 5 MG TAB XL PO (09:39)
[2024-03-30] MEDS: OMEPRAZOLE 20 MG CAPSULE.DR PO (09:39)
[2024-03-30] MEDS: ATORVASTATIN CALCIUM 10 MG TABLET PO (09:40)
[2024-03-30] MEDS: CARVEDILOL 6.25 MG TABLET PO (09:40)
[2024-03-30] MEDS: INSULIN GLARGINE 300 UNIT/3 ML INSULN.PEN 24 UNIT SQ (09:42)
[2024-03-30] MEDS: ASPIRIN 81 MG TABLET.DR PO (09:42)
[2024-03-30 10:56] VITALS: O2SAT 94
--- NOTE | 2024-03-31 14:34 | CM.DCFOLLOWU ---
03/31- called no answer
--- NOTE | 2024-04-03 14:23 | CM.DCFOLLOWU ---
Person spoke with: Roel How are you feeling? Much better How is your pain? No pain Did you understand your discharge instructions? Yes Do you have any questions about your discharge instructions? No Were you given any prescriptions at discharge? Yes Were you able to get your prescriptions filled? They were back ordered but have medications now Do you understand how to take your medications as ordered?yes Do you have any questions about your follow up appointment and do you plan to keep your follow up appointment? I go to see Dr. Dutta on Is there anything else that you would like to discuss? No Questions/Comments/Concerns/Other:
== END 2024-03-30 10:57 | disposition home or self-care (01) | DRG 728 ==
LOC: ER 21:44 → MS 03-29 13:15
PROVIDERS: Physician Assistant; Registered Nurse; Admitting Provider Family Medicine; Emergency Provider Emergency Medicine; PCP Family Medicine; Visit Provider Family Medicine
DX: B37.49 Other urogenital candidiasis (principal); N17.9 Acute kidney failure, unspecified; Z87.440 Personal history of urinary (tract) infections; I25.2 Old myocardial infarction; Z95.0 Presence of cardiac pacemaker; I25.10 Atherosclerotic heart disease of native coronary artery without angina pectoris; I48.91 Unspecified atrial fibrillation; K21.9 Gastro-esophageal reflux disease without esophagitis; I10 Essential (primary) hypertension; Z87.891 Personal history of nicotine dependence; N32.89 Other specified disorders of bladder; Z79.01 Long term (current) use of anticoagulants; Z79.85 Long-term (current) use of injectable non-insulin antidiabetic drugs; Z79.4 Long term (current) use of insulin; Z85.828 Personal history of other malignant neoplasm of skin; Z79.82 Long term (current) use of aspirin; E11.65 Type 2 diabetes mellitus with hyperglycemia; E78.00 Pure hypercholesterolemia, unspecified; N40.0 Benign prostatic hyperplasia without lower urinary tract symptoms; R10.30 Lower abdominal pain, unspecified
CPT/HCPCS: 36415; 80048; 80053; 81001; 83605; 85025; 87040; 87086; 94761; 96374; 99285; G0378; J0696

== ENCOUNTER 2024-04-05 19:56 | Inpatient (IN) | payer MEDICARE, OTHER, SELFPAY ==
[2024-04-05] VITALS (25 sets, daily range): BP systolic 140–164; BP diastolic 64–101; PULSE 87–117; TEMP 36.9–37.4; O2SAT 92–96; BMI 29.0; BMI 30.2
--- OUTSIDE RECORDS SUMMARY | 2024-04-05 20:02 | XMS_ITS | CCD ---
Author Organization [facility] CliniSyga Care Team Providers Care Drafter Detail Name Role Phone Andrea Espinoza Unavailable Unavailable Unavailable SHAKA Lange, DR JAMESON Admitting Unavailable SHAKA Lange, DR JAMESON Attending Unavailable CAROL ., DR SANDOVAL Primary Care Unavailable PRASANTH ., TAMARA RAI Consulting UnavailKaveh Lange, DR JAMESON Consulting Unavailable MAILE CANO Consulting Unavailable MARIXA ROY Admitting Unavailable MARIXA ROY Attending Unavailable MARIXA ROY Primary Care Unavailable FLORIAN, DR JOE Garcia Consulting Unavailable MARIXA ROY Consulting Unavailable Unavailable Unavailable Afua MARCILA, Dr. Varghese Lord Attending Unavailable Jenelleuinn II, Dr. Varghese Lord Referring Unavailable DeGroh, Dr. Andrea De La Rosa Primary Care Unava ilable DeGrozulay, Dr. Andrea De La Rosa Primary Care Unava ilable DeGrozulay, Dr. Andrea De La Rosa Primary Care Unava ilable Jenelleuinn II, Dr. Varghese Lord Attending Unavailable Afua II, Dr. Varghese Lord Referring Unavailable DeGro, Dr. Andrea De La Rosa Primary Care Unava ilable Bernarda DOAndrea Primary Care Provider Andrea Espinoza DO Primary Care Provider Akkina Werner Admitting Unavailable Akgabriellea Werner Attending Unavailable Vini Quinteros Attending Unavailable Mica Car Attending Unavailable iMca Car Attending Unavailable NAPOLEON TA Attending Unavailab Varghese Kearns Admitting Unavailable Varghese Caal Attending Unavailable Varghese Caal Referring Unavailable Barb Loza Admitting UnavailBarb Lang Attending UnavailMica Morrison Admitting Unavailable Mica Car Attending Unavailable Lori Medina MD Primary Care Provider [phone] BLANCA ALONSO Attending Unavailable CHUCK, BLANCA Zambrano Attending Unavailable DANK JONES Attending Unavailable CHUCK, BLANCA Zambrano Attending Unavailable BLANCA ALONSO Attending Unavailable BOBO BRENNER Attending Unavailable LORI MEDINA Primary Care Unavailable LORI MEDINA Primary Care Unavailable BEATA DEGROOT Attending Unavailable Andrea Espinoza DO Primary Care Provider VARGHESE CAAL Attending Unavailable AFUA VARGHESE P Referring Unavailable ANDREA ESPINOZA Primary Care Unavailable OSVALDO DICKINSON Attending Unavailable AFUA, VARGHESE P Referring Unavailable PEDROROANDREA Ross Primary Care Unavailable Lue, Mica MAnisa Admitting Unavailable Lue, Mica MAnisa Attending Unavailable Lue Mica MAnisa Attending Unavailable Lue Mica MAnisa Referring Unavailable Lue Mica MAnisa Attending Unavailable LueMica MAnisa Referring Unavailable Anna Sr Attending Unavailable NAPOLEON TA Attending Unavailab jameson LueMica Attending Unavailable Lue Mica MAnisa Referring Unavailable Lue, Mica MAnisa Admitting Unavailable Lue Mica MAnisa Attending Unavailable LueMica MAnisa Referring Unavailable Lue, Mica MAnisa Admitting Unavailable Lue, Mica MAnisa Attending Unavailable Jenelleuinmatthew, Varghese P Admitting Unavailable Afua, Varghese P Attending Unavailable Varghese Caal P Referring Unavailable Benton Vasquez DO Attending Provider Unavailab Benton Gann Admitting Unavailable Benton Vasquez Attending Unavailable Benton Vasquez Attending Unavailable Benton Vasquez Admitting Unavailable Allergies Allergy Classification Reported Allergen(s) Allergy Type Date of Onset Reaction(s) Facility (9 sources) Enalapril; 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: [enalapril] Drug Allergy 02-10-20 [facility] (17 sources) Metoprolol; 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: [metoprolol] Drug Allergy 10-12-19 23 Cough, Unknown -[facility] y 250 DO Work Phone: (3 sources) Fosinopril; 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: [Monopril] Drug Allergy 03-16-20 14 [facility] (1 source) Metoprolol Drug Allergy 05-16-19 15 [facility] (1 source) strawberry allergenic extract Drug Allergy 05-16-19 15 [facility] (1 source) tomato allergenic extract Drug Allergy 05-16-19 15 [facility] (2 sources) hydroCHLOROthiazide / Metoprolol; 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: [hydrochlorothiazide-m etoprolol] Drug Allergy [facility] (2 sources) [place]; 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: [Strawberries] Food allergy (disorder) [facility] (2 sources) Tomatoes; 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: [Tomatoes] Food allergy (disorder) [facility] (6 sources) Fosinopril; 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: [FOSINOPRIL] [...] End: 08-25-2023 cholecalciferol (Vitamin D-3) 50 MCG (1999 UT) capsule Vitamin D Active diclofenac sodium 0.01 [...] tablet (13 sources) take 1 tablet by twice daily ferrous sulfate, 325 mg ferrous [...] Start: 03-20-2020 take 2 tablets by mo [facility] three times daily hydrALAZINE HCl - 50 [...] sources) Polyene Antifungal Start: 08-10-2023 nystatin (Mycostatin) [id number] UNIT/GM powder Indications: Erythema intertrigo Apply to [...] Active Start: 01-14-2021 take 2 tablets by [facility] once daily Spironolactone 25 MG Oral [...] disease (2 sources) Atherosclerotic heart disease of [place] coronary artery without angina pectoris; 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: [Old [...] 06-01-2022 10-11-2022 Chronic Other aftercare (1 source) half-way (current) use of aspirin; 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: [LONG-TERM CURRENT USE OF ASPIRIN] Onset: 06-01-2022 Episodic Other aftercare (1 source) Other fdc (current) drug therapy; 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: [OTH LONG-TERM CURRENT DRUG THERAPY] Onset: 06-01-2022 Episodic Other [...] Name Value Interpretation Reference Range Facil ity Urine Cultureon 03-28-2024 Bacteria identified Cx Nom (U) No Growth 2 Days PERFORMED BY: [place] [address] PATHOLOGIST SEWER TAPPER OSCAR ESCOBAR M.D. Normal [facility] Comment on above: Performed By: #### C UU #### [address] C Urineon 03-26-2024 Bacteria identified Cx Nom (U) Microbiology PROCEDURE: Urine Culture [R1] SOURCE: U Random BODY SITE: COLLECTED DATE/TIME: 03/24/2024 10:36 EST RECEIVED DATE/TIME: 03/24/2024 18:30 EST START DATE/TIME: 03/24/2024 18:30 EST FREE TEXT SOURCE: Josep SANDHU, Mica Car MD, Mica Johns FINAL REPORTS Final Report [] Verified Date/Time: 03/26/2024 07:44 EST No growth at 2 days. Performing Locations R1: This test was performed at: [facility], [address] [place] [address], [id number]- , [place], Normal [facility] Comment on above: Performed By: #### 2 [id number] #### [facility] [address] [place] [address] Main OR Preoperative Recordo n 03-20-2024 Main OR Preoperative Record Main OR Preoperative Record Holding Area Document Type FTURO Summary Primary Physician: Mica Car MD Finalized Date/Time: 03/20/24 16:29:34 Pt. Name: LEIGHTON ARCINIEGA Tyrese MuirB./Sex: 1945 Male Med Rec #: [id number] Physician: Mica Car MD Financial #: [id number] Pt. Type: O Room/Bed: / Admit/Disch: 12/27/23 09:33:05 - 12/27/23 23:59:59 Institution: Case Times Holding FTURO Pre-Care Text: [...] Complaints of Pain: No Skin Integrity Intact, Ranshaw, Warm, & Dry Vitals - EU Blood Pressure 122/75 Pulse 81 bpm Respirations 18 br/min SPO2 96 % Additional None RN Reviewed Yes Specimens Collected Last Modified By: Ankita Gray RN 12/27/23 11:25:48 Finalized By: Kendrick GODINEZ, Dalia MARTINEZ Document Signatures Signed By: Latha David LPN 12/27/23 11:01 Latha David LPN 12/27/23 11:02 Kendrick GODINEZ, Dalia MARTINEZ 03/20/24 16:29 Normal [facility] Urine Cultureon 03-11-2024 Bacteria identified Cx Nom (U) ORGANISM: Prudence glabrata (O:CANGLA) Gorin Count 75,000 PERFORMED BY: [facility] [address] [place] [address] PATHOLOGIST SEWER TAPPER OSCAR ESCOBAR M.D. Normal [facility] Comment on above: Performed By: #### C UU #### [address] Urine cultureOrdered By: Derek Vasquez on 03-11-2024 Bacteria identified Cx Nom (U) Abnormal [facility] Urology Office/Clinic Noteon 03-02-2024 Urology Office/Clinic Note [...] that he had 3 day stay at [facility] on 02/26/24 for severe UTI & [...] further bleeding since then. Pt went to [place] [facility] 02/26/24 d/t persistent dysuria. Admitted for [...] 124ml Told him to continue Alfuzosin. Ordered: [id number] Measure Post Void residual urine and/or bladder [...] Urnls Dip Stick Auto w/o Microscopy POC 84143 3. 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 Follow-up [...] Hypercholesteremia Inco (more content not included)... Normal [facility] Comment on above: Result Comment: Elec tronically Signed By: NATA TA PA-C\Date and Time Signed: 03/02/24 17:13 EST\.br\Electronically Co-Signed By: Martir Shea\Date and Time Co-Signed: 03/02/24 13:38 EST ECG 12 Leadon 03-01-2024 AV paced rhythm [facility] Work Phone: URINE CULTUREon 02-19-2024 Bacteria identified Cx Nom (U) CULTURE RESULTS 10-50,000 ORGANISMS/mL NORMAL UROGENITAL ELIN Normal [facility] Comment on above: Performed By: #### 6 30-4 #### [facility] ([id number]) [address] [facility], [address] [place] [address] URN MACROSCOPIC NURon 2023 BILIRUBIN LETHA Negative Normal NEG [facility] Comment on above: Performed By: #### N UM #### [facility] ([id number]) [address] [place] [address] 15444 BLOOD/HGB LETHA Large Abnormal NEG [facility] Comment on above: Performed By: #### N UM #### [facility] ([id number]) [address] [place] [address] 63356 GLUCOSE LETHA >=1000 Abnormal NEG [facility] Comment on above: Performed By: #### N UM #### [facility] ([id number]) [address] [place] [address] 31770 KETONES LETHA Negative Normal NEG [facility] Comment on above: Performed By: #### N UM #### [facility] ([id number]) [address] [place] [address] 06966 LEUKOCYTE ESTERASE LETHA Small Abnormal NEG [facility] Comment on above: Performed By: #### N UM #### [facility] ([id number]) [address] [place] [address] 50806 NITRITE LETHA Negative Normal [facility] Comment on above: Performed By: #### N UM #### [facility] ([id number]) [address] [place] [address] 50049 PH LETHA 6.0 Normal 5.0-8.5 [facility] Comment on above: Performed By: #### N UM #### [facility] ([id number]) [address] [place] [address] 23136 PROTEIN LETHA 100 mg/dL Abnormal NEG [facility] Comment on above: Performed By: #### N UM #### [facility] ([id number]) [address] [place] [address] 21164 SPECIFIC GRAVITY LETHA 1.015 Normal 1.003-1.035 [facility] Comment on above: Performed By: #### N UM #### [facility] ([id number]) [address] [place] [address] 00019 UROBILINOGEN LETHA 0.2 eu/dL Normal <1.1 [facility] Comment on above: Performed By: #### N UM #### [facility] ([id number]) [address] [place] [address]644 Inpatient Patient Summaryon 02-14-2024 Inpatient Patient Summary Inpatient Patient Summary [place] [address] Clinical Summary Person Information Name: LEIGHTON ARCINIEGA Age: 78 Years : 1945 Sex: Male PCP: Lori Medina MD Marital Status: Race: White Ethnicity: Non- or Language: [place] Visit Id: Visit Reason: BPH WITH URINARY OBSTRUCTION Speciality: Acuity: Enc Type: Outpatient Med Service: Surgery Arrival: 02/14/2024 09:35:51 Discharge: Dispo Type: Address: Danie TONEY [address] [place] [phone] Provider Notes: Diagnosis: BPH with obstruction/lower urinary [...] day as needed for pain. acetaminophen-hydroc odone ([place] 325 mg-5 mg oral tablet) 1 Tablets [...] EU - Rezum Discharge Instructions (CUSTOM) Normal [facility] Main OR Intraoperative Recor don 02-14-2024 Main OR Intraoperative Record Main OR Intraoperative Record IntraOp Document Type FTURO Summary Primary Physician: Mica Car MD Finalized Date/Time: 02/14/24 12:08:58 Pt. Name: LEIGHTON ARCINIEGA D.O.B./Sex: 1945 Male Med Rec #: [id number] Physician: Mica Car MD Financial #: [id number] Pt. Type: O Room/Bed: / Admit/Disch: 02/14/24 [...] 3 Case Attendee Josep SANDHU, Jocy Perea [employer]ILDREN LIBRARIANAura Role Performed Surgeon - Primary Stave Saw Operator - Primary Scrub - Primary Time In [...] Corral 02/14/24 12:08 Jocy Corral 02/14/24 12:08 [facility] Main OR Preoperative Recordo n 02-14-2024 Main OR Preoperative Record Main OR Preoperative Record Holding Area Document Type FTURO Summary Primary Physician: Mica Car MD Finalized Date/Time: 02/14/24 11:48:27 Pt. Name: LEIGHTON ARCINIEGA Tyrese [place]field/Sex: 1945 Male Med Rec #: [id number] Physician: Mica Car MD Financial #: [id number] Pt. Type: O Room/Bed: / Admit/Disch: 02/14/24 [...] Complaints of Pain: No Skin Integrity Intact, Ranshaw, Warm, & Dry Vitals - EU Blood Pressure 152/74 Pulse 61 bpm Respirations 18 br/min SPO2 97 % Additional None RN Reviewed Yes Specimens Collected Last Modified By: Jocy Corral 02/14/24 11:48:23 Finalized By: Jocy Corral Document Signatures Signed By: Latha David LPN 02/14/24 11:05 Jocy Corral 02/14/24 11:48 Jocy Corral 02/14/24 11:48 Normal [facility] Operative Reporton Operative Report Operative Report [...] clearer. Follow-up in 1 month PVR.. Normal [facility] Comment on above: Result Comment: Elec tronically Signed By: Mica Car MD\.br\Date and Time Signed: 02/14/24 12:03 EST Outpatient Surgery Discharge Instructionon 02-14-2024 Outpatient Surgery Discharge Instruction Outpatient Surgery Discharge Instruction [place] [id number] Patient Discharge Instructions PERSON INFORMATION Name: LEIGHTON [...] there (more content not included)... Normal [facility] Ambulatory Visit Summaryon 1 04-01-2023 Ambulatory Visit [...] Strength 500 mg oral tablet) acetaminophen-hydroc odone ([place] 325 mg-5 mg oral tablet) allopurinol (allopurinol [...] Services Wednesday 10:30 AM EST Where: [facility] 2024 11:00 AM EDT [...] if questions or concerns Unchanged acetaminophen-hydroc odone ([place] 325 mg-5 mg oral tablet) 1 Tablets [...] omeprazole (omep (more content not included)... Normal [facility] Urology Office/Clinic Noteon 01-31-2024 Urology Office/Clinic Note Urology Office/Clinic Note Chief Complaint [facility] ER follow up HPI Staff 78 year old male patient presents today for a [facility] ER follow up 01/23/24. Pt has [...] with voice recognition artificial intelligence software, specifically [employer] and or [employer]. Substitutions may have occurred due to the [...] (N52.9: Male erectile dysfunction, unspecified) Hx of [place] in 2002. Has pacemaker in place. Denies [...] in medic (more content not included)... Normal [facility] Comment on above: Result Comment: Elec tronically Signed By: MICHAEL Sr APRN, [place] X\.br\Date and Time Signed: 01/31/24 16:26 EST URINE CULTUREon 01-24-2024 Bacteria identified Cx Nom (U) CULTURE RESULTS NO GROWTH AT <1000 CFU/mL Normal [facility] Comment on above: Performed By: #### 6 30-4 #### [facility] ([id number]) [address] [place] [address], [address] [place] [address] URN MACROSCOPIC NURon 2023 BILIRUBIN LETHA Negative Normal NEG [facility] Comment on above: Performed By: #### N UM #### [facility] ([id number]) [address] [place] [address] 19590 BLOOD/HGB LETHA Trace Abnormal NEG [facility] Comment on above: Performed By: #### N UM #### [facility] ([id number]) [address] [place] [address] 75949 GLUCOSE LETHA >=1000 Abnormal NEG [facility] Comment on above: Performed By: #### N UM #### [facility] ([id number]) [address] [place] [address] 91443 KETONES LETHA Negative Normal NEG [facility] Comment on above: Performed By: #### N UM #### [facility] ([id number]) [address] [place] [address] 93138 LEUKOCYTE ESTERASE LETHA Large Abnormal NEG [facility] Comment on above: Performed By: #### N UM #### [facility] ([id number]) [address] [place] [address] 84949 NITRITE LETHA Negative Normal NEG [facility] Comment on above: Performed By: #### N UM #### [facility] ([id number]) [address] [place] [address] 86972 PH LETHA 6.0 Normal 5.0-8.5 [facility] Comment on above: Performed By: #### N UM #### [facility] ([id number]) [address] [place] [address] 18912 PROTEIN LETHA 100 mg/dL Abnormal NEG [facility] Comment on above: Performed By: #### N UM #### [facility] ([id number]) [address] [facility] [place] [address] SPECIFIC GRAVITY LETHA 1.015 Normal 1.003-1.035 [facility] Comment on above: Performed By: #### N UM #### [facility] ([id number]) [address] [place] [address] UROBILINOGEN LETHA 0.2 eu/dL Normal <1.1 [facility] Comment on above: Performed By: #### N UM #### [facility] ([id number]) [address] [place] [address] 815[address] Inpatient Patient Summaryon 12-27-2023 Inpatient Patient Summary Inpatient Patient Summary [address] [address] Clinical Summary Person Information Name: LEIGHTON ARCINIEGA Age: 78 Years : 1945 Sex: Male PCP: Lori Medina MD Marital Status: Race: White Ethnicity: Non- or Language: [place] Visit Id: Visit Reason: BPH WITH URINARY OBSTRUCTION Speciality: Acuity: Enc Type: Outpatient Med Service: Surgery Arrival: 12/27/2023 09:33:05 Discharge: Dispo Type: Address: [address] [place] [address] DR [address] [place] [phone] Provider Notes: Diagnosis: Anticoagulated; Other obstructive and [...] day as needed for pain. acetaminophen-hydroc odone ([place] 325 mg-5 mg oral tablet) 1 Tablets [...] When: Mica Car Comments: Office to schedule [facility] Type Location Start Finish State NCV Pacemaker (FT) FT.CARDIO 06/01/2024 11:00 AM 06/01/2024 11:15 AM Confirmed Patient Education Information: EU - Cystoscopy Discharge Instructions (CUSTOM) [facility] Main OR Intraoperative Recor don 12-27-2023 Main OR Intraoperative Record Main OR Intraoperative Record IntraOp Document Type FTURO Summary Primary Physician: Mica Car MD Finalized Date/Time: 12/27/23 11:42:38 Pt. Name: LEIGHTON ARCINIEGA/Sex: 1945 Male Med Rec #: [id number] Physician: Mica Car MD Financial #: [id number] Pt. Type: O Room/Bed: / Admit/Disch: 12/27/23 [...] Micky Vargas Role Performed Surgeon - Primary Stave Saw Operator - Primary Scrub - Primary Time In [...] Class 2 - Clean-Contaminated Last Modified By: Tudne GODINEZ, Ankita Willett 12/27/23 11:36:35 General Case [...] By: Ankita Gray RN 12/27/23 11:42 Normal [facility] Operative Reporton Operative Report Operative Report Patient: LEIGHTON ARCINIEGA Age: 78 years Sex: Male : 1945 Associated Diagnoses: None Author: Mica Car MD Procedure Operative Information Details: Date/ Time: 12/27/2023 12:10:00. Pre-Op Dx: BPH w/ LUTS - N40.1. Post-Op Dx: Feeling of incomplete bladder emptying ([id number] R39.14, Working, Medical), Anticoagulated (MKZ07-CS Z79.01, Discharge, Medical), Same. Anesthesia Type: Local. [...] and Valium prior to procedure. 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 -Will need blood thinners held prior to procedure. Elevated risk of bleeding discussed. -Patient did better on terazosin. Will DC tamsulosin and restart terazosin 10 mg daily. Medication sent to [facility] in [place].. Normal [facility] Comment on above: Result Comment: Elec tronically Signed By: Mica Car MD\.br\Date and Time Signed: 12/27/23 12:14 EDT Outpatient Surgery Discharge Instructionon 12-27-2023 Outpatient Surgery Discharge Instruction Outpatient Surgery Discharge Instruction [place] [id number] Patient Discharge Instructions PERSON INFORMATION Name: ARCINIEGALEIGHTON Tyrese Date of : 1945 Current Date: 12/27/2023 12:34:04 PHYSICIANS Admitting Physician: Mica Car MD Comment: Discharge Diagnosis: Anticoagulated; Other obstructive and reflux uropathy; Prostate hyperplasia with urinary obstruction LEIGHTON ARCINIEGA has been given the following list of follow-up instructions, prescriptions, and patient education materials: IF UNABLE TO CONTACT YOUR PHYSICIAN AND YOU FEEL IT IS AN EMERGENCY, GO TO THE NEAREST EMERGENCY ROOM OR CALL 911 Follow up: With: Address: When: Mica Car Comments: Office to schedule [facility] Location Start [facility] NCV Pacemaker (FT) FT.CARDIO 06/01/2024 11:00 AM [...] you have a fever over 100 degrees. ISUZE DONALD C, have received the attached patient education materials/instructio ns and have verbalized understanding: May we do a follow up call? Yes No I was present when discharge instructions were given Patient Signature Date Clinican/Nurse Signature Date You may receive a survey from [employer] asking you to rate your care experience. Your feedback is important and will help us understand what we do well and how we can improve the quality of care we provide to you, your loved ones and our community. It?s an honor to serve you. Thank you for choosing [facility] Normal [facility] Ambulatory Visit Summaryon 0 11-12-2023 Ambulatory [...] Strength 500 mg oral tablet) acetaminophen-hydroc odone ([place] 325 mg-5 mg oral tablet) allopurinol (allopurinol [...] Following Appointments Follow Up with Josep SANDHU, Mica Johns, MIGUELITO, URO When: Where: Medications What How Much [...] if questions or concerns Unchanged acetaminophen-hydroc odone ([place] 325 mg-5 mg oral tablet) 1 Tablets [...] Mouth E (more content not included)... Normal [facility] Urology Office/Clinic Noteon 11-12-2023 Urology Office/Clinic [...] (N52.9: Male erectile dysfunction, unspecified) Hx of [place] in 2002. Has pacemaker in place. Denies [...] prostate sizing Patient Education Benign Prostatic Hyperplasia I, Maria Luz Mejia, personally scribed for Dr. Car on 11/12/2023 16:14:22. . Documentation recorded by the scribe, Maria Luz Mejia, accurately reflects the services(s) I performed and [...] antigen) Seborr (more content not included)... Normal [facility] Comment on above: Result Comment: Elec tronically Signed By: Josep SANDHU, Mica Johns\.br\Date and Time Signed: 11/12/23 16:43 EDT\.br\Electronically Co-Signed By: Maria Luz Mejia\.br\Date and Time Co-Signed: 11/12/23 16:14 EDT PTH Intacton 10-15-2023 Parathyrin.intact [Mass/Vol] 49 pg/mL Invalid Interpretation Code 15-65 [facility] Comment on above: Result Comment: Perf ormed at: [facility] [address] [id number] PhD Carlos Singh Performed By: #### 1 [id number] #### [facility] [address] [place] [address] ED Clinical Summaryon 2023 ED Clinical Summary ED Clinical Summary [address] [address] ED Clinical Summary Person Information Name: LEIGHTON ARCINIEGA [facility] Age: 77 Years : 1945 Sex: Male Language: [place] PCP: Lori Medina MD Marital Status: Visit [...] 10/14/2023 13:18:55 10/14/2023 13:18:55 10/14/2023 13:18:55 ADDRESS: [address] [facility] [id number] PHYS DOC NOTES: MEDICAL INFORMATION: Prescriptions Given: New Medications [id number], [address], [place] [phone], [phone] acetaminophen-hydroc odone ([place] 325 mg-5 mg oral tablet) 1 Tablets [...] EDUCATION INFORMATION: Instructions: Acute Knee Pain, Adult, Ntei-pl-Wxoy Follow up: With: Address: When: Andrea Espana [address] [place], [place] [phone] Business (1) In 3 days 10/17/2023 With: Address: When: Call to schedule a follow-up appointment with your orthopedic surgeon. Use the [place] as needed for pain along with icing. . If you are unable to get in with your orthopedic surgeon, I have provided a referral for another one. In 3 days 10/17/2023 With: Address: When: Lori Medina [facility] [place] [address] Business (1) In 3 days DIAGNOSIS: Posterior left knee pain Normal [facility] ED Note-Physicianon 10-14-19 ED Note-Physician ED [...] he previously saw an orthopedic surgeon in [facility] for arthritis in which he will follow-up for further management of care. Patient is on Eliquis therefore I cannot prescribe him naproxen or any form of NSAID. Due to his age I did not feel a muscle relaxer was appropriate either. Based on this he is being prescribed 4 doses of [place]. He was educated on appropriate use of [...] q4hr for pain, 4 tab(s), Refill(s) 0, [id number], 177, cm, 10/14/23 11:44:00 EDT, Height/Length Dosing, 104.8, kg, 10/14/23 11:44:00 EDT, Weight Dosing Disposition Plan Patient Discharge Condition stable Discharge Disposition home Discharge Prescription List Prescriptions [place] 325 mg-5 mg oral tablet, 1 tab(s), Oral, q4hr, PRN Follow-up With When Contact Information Andrea Espana In 3 days 10/17/2023 EDT [address] [place] [address]- Business (1) Additional Instructions: Call to schedule a follow-up appointment with your orthopedic surgeon. Use the [place] as needed for pain along with icing. . If you are unable to get in with your orthopedic surgeon, I have provided a referral for another one. In 3 days 10/17/2023 EDT Additional Instructions: Lori Medina In 3 days [address] [place] [address]- Business (1) Additional Instructions: Patient Education Acute Knee Pain, Adult, Irkf-zq-Ingb Attestation Patient seen and evaluated by the physician seismic survey assistant. Attending physician was present in the emergency department and supervised care. This visit was performed by both the physician and an APC. I performed all aspects of the MDM as documented. This report was transcribed using voice recognition software. Every effort was made to ensure accuracy, however, inadvertently computerized fig washer mistakes may be present. Appropriate healthcare PPE was used in evaluating this patient. The patient was placed in a mask. The healthcare provider was wearing mask, gloves, and utiliz (more content not included)... Normal [facility] Comment on above: Result Comment: Elec tronically Signed By: Vini Quinteros DO\.br\Date and Time Signed: 10/14/23 16:09 EDT\.br\Electronically Co-Signed By: Stewart BENDER, Nayla Quiros\.br\Date and Time Co-Signed: 10/14/23 13:46 EDT ED Patient Summaryon 024 ED Patient Summary ED Patient Summary [facility] [address] [id number] Patient Discharge Instructions Person Information Name: LEIGHTON ARCINIEGA Age: 77 Years Arrival Date: 10/14/2023 11:36:13 Discharge Diagnosis: Posterior left knee pain Primary Care Physician: Lori Medina MD Provider Information Primary Provider: Vini Quinteros DO Advanced Clinical Editor:Nayla William PA-C The exam and treatment you received in the Emergency Department were for an urgent problem and are not intended as complete care. It is important that you follow up with a doctor, nurse practitioner, or physician?s seismic survey assistant for ongoing care. If your symptoms [...] Follow-up Instructions: With: Address: When: Andrea Espana [address] [phone] Business (1) In 3 days 10/17/2023 With: Address: When: Call to schedule a follow-up appointment with your orthopedic surgeon. Use the [place] as needed for pain along with icing. . If you are unable to get in with your orthopedic surgeon, I have provided a referral for another one. In 3 days 10/17/2023 With: Address: When: Lori Medina [address] [facility] [place] [address] Business (1) In 3 days In the event that this physician does not participate in your insurance network, please consult with your insurance company to find a nearby participating provider. Patient Education Materials: Acute Knee Pain, Adult, Oqyt-vx-Wabb A MESSAGE TO ALL PATIENTS REGARDING OPIOIDS PRESCRIPTION OPIOIDS: WHAT YOU NEED TO KNOW Prescription opioids can be used to help relieve cbrptklo-mo-nqvqhl pain and are often prescribed following a [...] or yo (more content not included)... Normal [facility] XR Knee Complete 4+ Views Le [...] REPORT Dictated: 10/14/2023 1:49 pm Andrae Archer MD Signed (Electronic Signature): 10/14/2023 1:49 pm Signed by: Andrae Archer MD Transcribed by: SENA Technologist: ISELA Technical Comments Radiation Dose: Ka,r in mGy = na DAP = na Normal [facility] Screenson 06-17-2023 Screens [id number] #1.00TIFF Normal [facility] Screens [id number] #1.00TIFF Normal [facility] Ambulatory Visit Summaryon 0 06-16-2023 Ambulatory [...] SANDHU, Mica Johns Where: [facility] Patient Educationon 06-16-19 24 Patient Education Urology Erectile Dysfunction [...] these instructions at home: Medicines ? Take xkxa-gex-uswvclr and prescription medicines only as told by [...] include cig (more content not included)... Normal [facility] Urology Office/Clinic Noteon 06-16-2023 Urology Office/Clinic [...] (N52.9: Male erectile dysfunction, unspecified) Hx of [place] in 2002. Has pacemaker in place. Denies [...] Information Josep SANDHU, Mica Johns, URL, [facility] [address] [place] [phone] Additional Instructions: Has f/u already scheduled 11/12/23 [...] Amputation, Tonsillectomy. (more content not included)... Normal [facility] Comment on above: Result Comment: Elec tronically Signed By: NATA TA PA-C\.br\Date and Time Signed: 06/16/23 10:56 EDT\.br\Electronically Co-Signed By: Kriss Frankel\.br\Date and Time Co-Signed: 06/16/23 10:48 EDT Screenson 05-10-2023 Screens [id number] #1.00TIFF [facility] Screens [id number] #1.00TIFF [facility] Ambulatory Visit Summaryon 0 05-07-2023 Ambulatory Visit Summary LEIGHTON ARCINIEGA :1945 Visit Date:05/07/2023 Ambulatory Visit Instructions Your Diagnosis BPH with urinary obstruction ED (erectile dysfunction) Incomplete bladder emptying Your Care Team Attending Physician - Mica [...] NATA TA PA-C Where: [facility] Normal [address] [place] [address]- \.br\ You Need to Schedule the Following Appointments\.br\ Follow Up with NATA TA PA-C, URL When: \.br\ Comments:\.br\ 1 mos w/ PVR \.br\ Where:\.br\ [address]br\ [place] [address]\.br\ [phone]\.br\ Medications\.br\ What How Much When Instructions\.br\ New tadalafil (tadalafil 10 mg Tab) 1 Tablets By Mouth As Directed as needed for for erectile dysfunction Refills: 3 Take one tab 1 hour prior to sexual activity. Do not exceed 20mg in 48hrs. Pickup at [facility] #[id number]\.br\ New tamsulosin (tamsulosin 0.4 mg Cap) 1 Capsules By Mouth Once a day (in the evening) Refills: 11 Pickup at [facility] #[id number]\.br\ Unchanged acetaminophen (Tylenol Extra Strength 500 mg [...] or concerns \.br\ Pharmacy Information\.br\ [id number]: [address] [place], [place] [id number] [phone]\.br\ Allergies\.br\ Monopril (Dry cough)\.br\ Strawberries (rash)\.br\ Tomatoes [...] Symptoms of this condition include:\.br\ ? \ [facility] Ambulatory Visit Summary LEIGHTON ARCINIEGA :1945 [...] Following Appointments Follow Up with Josep SANDHU, Mica Johns, URL, [facility] When: Comments: 6 mos ([facility]) Where: [address] [place] [phone] Medications What How Much When Instructions Unchanged [...] Every da (more content not included)... Normal [facility] Patient Educationon 05-07-19 Patient Education Urology [...] these instructions at home: Medicines ? Take jlcr-idb-zhkkvaw and prescription medicines only as told by [...] include cig (more content not included)... Normal [facility] Urology Office/Clinic Noteon 05-07-2023 Urology Office/Clinic [...] (N52.9: Male erectile dysfunction, unspecified) Hx of [place] in 2002. Has pacemaker in place. AMANDA [...] See #1. Follow-up With When Contact Information Mica Car MD, URL, [facility] [address] [place] [phone] Additional Instructions: 1 mos w/ PVR Patient Education Erectile Dysfunction Kriss Heredia, personally scribed for Dr. Car on 05/07/2023 15:06:02. . Documentation recorded by the scribKriss holt, accurately reflects the services(s) I performed and decisions made by me. Authenticated by Dr. Car on 05/07/2023 16:05:51. Problem List/Past Medical History Ongoing Anticoagulated Arthritis Aspirin marshall (more content not included)... Normal [facility] Comment on above: Result Comment: Elec tronically Signed By: Mica Car MD\.br\Date and Time Signed: 05/07/23 16:06 EST\.br\Electronically Co-Signed By: Kriss Frankel\.br\Date and Time Co-Signed: 05/07/23 15:08 EST Consent for Treatmenton -0 Consent for Treatment [id number] #1.00TIFF Normal [facility] Consent for Treatment [id number] #1.00TIFF Normal [facility] Consent for Treatment [id number] #1.00TIFF Normal [facility] Hct & Hgbon 04-22-2023 Hematocrit (Bld) [Volume fraction] 39.0 % Normal 37.7-49.0 [facility] Comment on above: Performed By: #### 1 [id number], [id number], [id number], 2767866 ####[facility] [address] [place] [address] Hemoglobin (Bld) [Mass/Vol] 12.5 g/dL Low 13.5-17.5 [facility] Comment on above: Performed By: #### 1 [id number], 94903404, 42822475, 1805281 ####[facility] [address] [place] [address] Magnesiumon 04-22-2023 Magnesium [Mass/Vol] 1.7 mg/dL Normal 1.3-2.4 [facility] Comment on above: Performed By: #### 1 [id number], 68292318, 42821129, 8881617 ####[facility] [address] [place] [address] PSA Totalon 04-22-2023 PSA Total 1.6 ng/mL Normal 0.1-3.5 [facility] Comment on above: Result Comment: The concentration of PSA determined by different manufacturers can vary due to differences in assay methods and reagent specificity. Values obtained from different assay methods cannot be used interchangeably. The methodology used for this result was chemiluminescence using [employer]'s Access Hybritech PSA reagent. Performed By: #### 1 [id number] ####[facility] [address] [place] [address] Physician Orderon 04-22-2023 Physician Order [id number]#1.00TIFF Normal [facility] Physician Order [id number] 28#1.00TIFF Normal [facility] Renal Panelon 04-22-2023 Albumin [Mass/Vol] 3.9 g/dL Normal 3.3-5.0 [facility] Comment on above: Performed By: #### 1 1503000, 67564964, 74757596, 1640985 ####[facility] [address] [place] [address] Anion gap [Moles/Vol] 11 mmol/L Normal 6-16 [facility] Comment on above: Performed By: #### 1 8944116, 91603566, 26594171, 6576929 ####[facility] [address] [place] [address] BUN/Creat Ratio 15 No Units Normal 10-20 [facility] Comment on above: Performed By: #### 1 5410319, 46118720, 01944486, 3730223 ####[facility] [address] [place] [address] Calcium [Mass/Vol] 9.0 mg/dL Normal 8.9-11.1 [facility] Comment on above: Performed By: #### 1 6355975, 12180144, 94941007, 2854000 ####[facility] [address] [place] [address] Chloride [Moles/Vol] 104 mmol/L Normal 101-111 [facility] Comment on above: Performed By: #### 1 4524751, 15009978, 09483029, 3790425 ####[facility] [address] [place] [address] CO2 [Moles/Vol] 29 mmol/L Normal 21-31 [facility] Comment on above: Performed By: #### 1 8985215, 57814407, 54494669, 7351630 ####[facility] [address] [place] [address] Creatinine [Mass/Vol] 1.7 mg/dL High 0.5-1.3 [facility] Comment on above: Performed By: #### 1 6157018, 19436553, 84773125, 3318739 ####[facility] [address] [place] [address] Glucose [Mass/Vol] 144 mg/dL Normal 55-199 [facility] Comment on above: Performed By: #### 1 6939007, 07333665, 55481414, 7130890 ####[facility] [address] [place] [address] Phosphate [Mass/Vol] 3.0 mg/dL Normal 1.9-4.6 [facility] Comment on above: Performed By: #### 1 3435758, 46759057, 54959343, 0402793 ####[facility] [address] [place] [address] Potassium [Moles/Vol] 3.9 mmol/L Normal 3.5-5.3 [facility] Comment on above: Performed By: #### 1 4553592, 61975308, 54683869, 8228222 ####[facility] [address] [place] [address] Sodium [Moles/Vol] 140 mmol/L Normal 135-145 [facility] Comment on above: Performed By: #### 1 6757453, 20652819, 22454623, 5082049 ####[facility] [address] [place] [address] Urea nitrogen [Mass/Vol] 26 mg/dL High 5-21 [facility] Comment on above: Performed By: #### 1 6486594, 51363095, 36716870, 0003315 ####[facility] [address] [place] [address] U Protein/Creat Ratioon 02-0 1-4 U Creatinine 60.9 mg/dL Invalid Interpretation Code [facility] Comment on above: Performed By: #### 1 [id number] ####[facility] [address] [place] [address] U Prot/Creat Ratio 19.90 mg/gm Cr Normal .00-200.00 [facility] Comment on above: Performed By: #### 1 [id number] ####[facility] [address] [place] [address] Ur Total Protein 12.1 mg/dL Invalid Interpretation Code [facility] Comment on above: Performed By: #### 1 [id number] ####[facility] [address] [place] [address] eGFRon 04-22-2023 eGFR 41 mL/min/1.73 m2 Low >=59 [facility] Comment on above: Order Comment: Order added by Discern Expert. Performed By: #### 1 3811299, 37426591, 57698117, 7954165 ####[facility] [address] [place] [address] Office Visit (Cardiology)on 07-01-2022 Follow-up visit Diagnoses/Problems [...] Weight Tips; Status:Complete - Retrospective Authorization; Done: [id number] Some eating tips that can help you lose weight.; Status:Complete - Retrospective Authorization; Done: [id number] Essential hypertension Renew: Carvedilol 6.25 MG Oral Tablet; Take 1 tablet twice daily Hyperlipidemia Renew: Simvastatin 20 MG Oral Tablet; TAKE 0.5 TABLET Bedtime SocHx: Former smoker Tobacco Use Screening; Status:Complete; Done: [id number] Patient Instructions Please bring all medicines, vitamins, [...] education sheet. 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 Vitals Vital Signs Recorded: [id number] 10: (more content not included)... Normal [employer] Tobacco Screening.on 023 Adult depression screening assessment No [facility] [employer] DO Work Phone: Fall risk assessment b) One or more falls in the last year [facility] [employer] DO Work Phone: Tobacco use status CPHS b) No [facility] [employer] 600 DO Work Phone: CBC AUTO DIFFon 05-28-2022 BASO # 0.0 103/ul Normal 0.0-0.1 [facility] Comment on above: Performed By: #### C BC #### [facility] [address] [address] [address] Susie Hale Basophils/100 WBC (Bld) 0.5 % Normal 0.2-2.[address] [facility] Comment on above: Performed By: #### C BC #### [facility] [address] [address] [address] Susie Hale EO # 0.1 103/ul Normal 0.0-0.[address] [facility] Comment on above: Performed By: #### C BC #### [facility] [address] [address] [address] Susie Hale Eosinophils/100 WBC (Bld) 1.8 % Normal 0.9-7.[address] [facility] Comment on above: Performed By: #### C BC #### [facility] [address] [address] [address] Susie Hale Erythrocyte distribution width (RBC) [Ratio] 13.0 % Normal 11.0-15.[address] [facility] Comment on above: Performed By: #### C BC #### [facility] [address] [address] [address] Susie Hale Hematocrit (Bld) [Volume fraction] 35.0 % Critically low 42.0-54.[address] [facility] Comment on above: Performed By: #### C BC #### [facility] [address] [address] [address] Susie aHle Hemoglobin (Bld) [Mass/Vol] 12.2 g/dL Critically low 14.0-18.[address] [facility] Comment on above: Performed By: #### C BC #### [facility] [address] [address] [address] Susie Hale IG # 0.05 10e3/ul Critically high 0.00-0.03 [facility] Comment on above: Performed By: #### C BC #### [facility] [address] [address] [address] Susie Hale IG % 0.8 % Critically high 0.0-0.5 [facility] Comment on above: Performed By: #### C BC #### [facility] [address] [place] [address] Dr. Susie Hale LYMPH # 1.9 103/ul Normal 1.2-3.[address] [facility] Comment on above: Performed By: #### C BC #### [facility] [address] [place] [address] Dr. Susie Hale Lymphocytes/100 WBC (Bld) 28.7 % Normal 20.5-60.[address] [facility] Comment on above: Performed By: #### C BC #### [facility] [address] [place] [address] Dr. Susie Hale MANUAL DIFF REQ NO Normal [facility] Comment on above: Performed By: #### C BC #### [facility] [address] [place] [address] Dr. Susie Hale MCH (RBC) [Entitic mass] 32.1 pg Normal 25.9-34.[address] [facility] Comment on above: Performed By: #### C BC #### [facility] [address] [place] [address] Dr. Susie Hale MCHC (RBC) [Mass/Vol] 34.9 g/dL Normal 29.9-35.[address] [facility] Comment on above: Performed By: #### C BC #### [facility] [address] [place] [address] Dr. Susie Hale MCV (RBC) [Entitic vol] 92.1 fL Normal 80.0-94.[address] [facility] Comment on above: Performed By: #### C BC #### [facility] [address] [place] [address] Dr. Susie Hale MONO # 0.7 103/ul Normal 0.3-0.[address] [facility] Comment on above: Performed By: #### C BC #### [facility] [address] [place] [address] Dr. Susie Hale Monocytes/100 WBC (Bld) 10.9 % Normal 1.7-12.[address] [facility] Comment on above: Performed By: #### C BC #### [facility] [address] [place] [address] Dr. Susie Hale NEUT # 3.7 103/ul Normal 1.4-6.[address] [facility] Comment on above: Performed By: #### C BC #### [facility] [address] [place] [address] Dr. Susie Hale Neutrophils/100 WBC (Bld) 57.3 % Normal 43.0-75.[address] [facility] Comment on above: Performed By: #### C BC #### [facility] [address] [place] [address] Dr. Susie Hale Platelet mean volume (Bld) [Entitic vol] 8.5 fL Critically low 9.5-13.[address] [facility] Comment on above: Performed By: #### C BC #### [facility] [address] [place] [address] Dr. Susie Hale PLT 238 103/ul Normal 150-450 [facility] Comment on above: Performed By: #### C BC #### [facility] [address] [place] [address] Dr. Susie Hale RBC 3.80 106/ul Critically low 4.70-6.10 [facility] Comment on above: Performed By: #### C BC #### [facility] [address] [place] [address] Dr. Susie Hale WBC 6.5 103/ul Normal 4.0-11.[address] [facility] Comment on above: Performed By: #### C BC #### [facility] [address] [place] [address] STROKE HEAD WOon [...] MAILE CANO Date: 2022-05-28 18:17 Normal [facility] PROF 14(COMP METB)on 023 Albumin [Mass/Vol] 3.5 g/dL Normal 3.4-5.0 [facility] Comment on above: Performed By: #### C MP #### [facility] [address] [place] [address] Dr. Susie Hale Albumin/Globulin [Mass ratio] 1.1 {ratio} Normal [facility] Comment on above: Performed By: #### C MP #### [facility] [address] [place] [address] Dr. Susie Hale ALP [Catalytic activity/Vol] 87 U/L Normal 46-116 [facility] Comment on above: Performed By: #### C MP #### [facility] [address] [address] [address] Susie Hale ALT [Catalytic activity/Vol] 16 U/L Normal 16-[address] [facility] Comment on above: Performed By: #### C MP #### [facility] [address] [place] [address] Dr. Susie Hale Anion gap [Moles/Vol] 10.0 mmol/L Normal [facility] Comment on above: Performed By: #### C MP #### [facility] [address] [place] [address] Dr. Susie Hale AST [Catalytic activity/Vol] 14 U/L Critically low 15-37 [facility] Comment on above: Performed By: #### C MP #### [facility] [address] [address] [address] Susie Hale Bilirubin [Mass/Vol] 0.2 mg/dL Normal 0.2-1.[address] [facility] Comment on above: Performed By: #### C MP #### [facility] [address] [address] [address] Susie Hale Calcium [Mass/Vol] 8.9 mg/dL Normal 8.5-10.1 [facility] Comment on above: Performed By: #### C MP #### [facility] [address] [address] [address] Susie Hale Chloride [Moles/Vol] 105 mmol/L Normal 98-[address] [facility] Comment on above: Performed By: #### C MP #### [facility] [address] [address] [address] Susie Hale CO2 [Moles/Vol] 25.7 mmol/L Normal 21.0-32.0 [facility] Comment on above: Performed By: #### C MP #### [facility] [address] [address] [address] Susie Hale Creatinine [Mass/Vol] 1.87 mg/dL Critically high 0.70-1.[address] [facility] Comment on above: Performed By: #### C MP #### [facility] [address] [address] [address] Susie Hale EGFR-AF GUYANESE 43 mL/min/1.73m2 Critically low >=60 [facility] Comment on above: Performed By: #### C MP #### [facility] [address] [address] [address] Susie Hale EGFR-NON AF GUYANESE 35 mL/min/1.73m2 Critically low >=[address] [facility] Comment on above: Performed By: #### C MP #### [facility] [address] [address] [address] Susie Hale Globulin (S) [Mass/Vol] 3.2 g/dL Normal [facility] Comment on above: Performed By: #### C MP #### [facility] [address] [address] [address] Susie Hale Glucose [Mass/Vol] 256 mg/dL Critically high 74-106 [facility] Comment on above: Performed By: #### C MP #### [facility] [address] [place], [place] [address] Dr. Susie Hale Potassium [Moles/Vol] 3.7 mmol/L Normal 3.5-5.[address] [facility] Comment on above: Performed By: #### C MP #### [facility] [address] [address] [address] Susie Hale Protein [Mass/Vol] 6.7 g/dL Normal 6.4-8.2 [facility] Comment on above: Performed By: #### C MP #### [facility] [address] [address] [address] Susie Hale Sodium [Moles/Vol] 137 mmol/L Normal 136-145 [facility] Comment on above: Performed By: #### C MP #### [facility] [address] [address] [address] Susie Hale Urea nitrogen [Mass/Vol] 22.0 mg/dL Critically high 7.0-18.[address] [facility] Comment on above: Performed By: #### C MP #### [facility] [address] [address] [address] Susie Hale Urea nitrogen/Creatinin e [Mass ratio] 11.8 mg/mg Normal [facility] Comment on above: Performed By: #### C MP #### [facility] [id number] Susie Hale Office Visit (Cardiology)on 12-16-2021 [...] in adult Healthy Weight Tips; Status:Complete; Done: [id number] Some eating tips that can help you lose weight.; Status:Complete; Done: [id number] Essential hypertension Renew: Carvedilol 6.25 MG Oral Tablet; Take 1 tablet twice daily Hyperlipidemia Renew: Simvastatin 20 MG Oral Tablet; TAKE 0.5 TABLET Bedtime SocHx: Former smoker Tobacco Use Screening; Status:Complete; Done: [id number] Unlinked Stop: Aspirin 325 MG Oral Tablet [...] your visit. Device check as directed per [facility] protocol Follow up in 6-9 months Chief [...] skin r (more content not included)... Normal [facility] Tobacco Screening.on 022 Adult depression screening assessment No [facility] 600 DO Work Phone: Fall risk assessment a) No falls within the last year [facility] 600 DO Work Phone: Tobacco use status [facility] b) No -[facility] 600 DO Work Phone: Tobacco Screening.on 021 Fall risk assessment a) No falls within the last year [facility] 250 DO Work Phone: Tobacco use status CP b) No [facility] 250 DO Work Phone: Vital Signs Date Time Vital Sign Value Performing Clinician Faci lity 03-01-2024 11:12-0500 Body height 177.8 cm Osvaldo Dickinson MD Work Phone: [facility] 03-01-2024 11:12-0500 Body mass index (BMI) [Ratio] 30.13 kg/m2 Osvaldo Dickinson MD Work Phone: [facility] 03-01-2024 11:12-0500 Body weight 95.25 kg Osvaldo Dickinson MD Work Phone: [facility] 03-01-2024 11:12-0500 Diastolic blood pressure 54 mm[Hg] Osvaldo Dickinson MD Work Phone: [facility] 03-01-2024 11:12-0500 Heart rate 71 /min Osvaldo Dickinson MD Work Phone: [facility] 03-01-2024 11:12-0500 Systolic blood pressure 114 mm[Hg] Osvaldo Dickinson MD Work Phone: [facility] 12-14-2023 13:17-0400 Diastolic blood pressure 70 mm[Hg] Dank Robert DO Work Phone: [facility] 12-14-2023 13:17-0400 Heart rate 68 /min Dank Robert DO Work Phone: [facility] 12-14-2023 13:17-0400 SaO2% (BldA) [Mass fraction] 97 % Dank Robert DO Work Phone: [facility] 12-14-2023 13:17-0400 Systolic blood pressure 152 mm[Hg] Dank Robert DO Work Phone: [facility] 08-25-2023 12:12-0400 Body height 177.8 cm Varghese Caal MD Work Phone: [facility] 08-25-2023 12:12-0400 Body mass index (BMI) [Ratio] 33.43 kg/m2 Varghese Caal MD Work Phone: [facility] 08-25-2023 12:12-0400 Body weight 105.69 kg Varghese Caal MD Work Phone: [facility] 08-25-2023 12:12-0400 Diastolic blood pressure 54 mm[Hg] Varghese Caal MD Work Phone: [facility] 08-25-2023 12:12-0400 Heart rate 60 /min Varghese Caal MD Work Phone: [facility] 08-25-2023 12:12-0400 Systolic blood pressure 126 mm[Hg] Varghese Caal MD Work Phone: [facility] 02-10-2023 11:37-0500 Body height 177.8 cm Varghese Caal MD Work Phone: [facility] 02-10-2023 11:37-0500 Body mass index (BMI) [Ratio] 32.28 kg/m2 Varghese Caal MD Work Phone: [facility] 02-10-2023 11:37-0500 Body weight 102.06 kg Varghese Caal MD Work Phone: [facility] 02-10-2023 11:37-0500 Diastolic blood pressure 58 mm[Hg] Varghese Caal MD Work Phone: [facility] 02-10-2023 11:37-0500 Heart rate 63 /min Varghese Caal MD Work Phone: [facility] 02-10-2023 11:37-0500 Systolic blood pressure 120 mm[Hg] Varghese Caal MD Work Phone: [facility] 07-01-2022 10:54-0400 Body height 177.8 cm Andrea Vasquezemmazulay Work Phone: [facility] 600 DO Work Phone: 07-01-2022 10:54-0400 Body mass index (BMI) [Ratio] 32.71 kg/m2 Andrea Espinoza Work Phone: [facility] 600 DO Work Phone: 07-01-2022 10:54-0400 Body surface area Derived from formula 2.21 m2 Andrea Espinoza Work Phone: [facility] 600 DO Work Phone: 07-01-2022 10:54-0400 Body weight 103.42 kg Andrea Espinoza Work Phone: [facility] 600 DO Work Phone: 07-01-2022 10:54-0400 Diastolic blood pressure 64 mm[Hg] Andrea Patel Pedroemmazulay Work Phone: [facility] 600 DO Work Phone: 07-01-2022 10:54-0400 Heart rate 72 /min Andrea Espinoza Work Phone: [facility] 600 DO Work Phone: 07-01-2022 10:54-0400 Systolic blood pressure 118 mm[Hg] Andrea Espinoza Work Phone: [facility] 600 DO Work Phone: 12-16-2021 11:08-0400 Body height 177.8 cm Andrea Espinoza Work Phone: [facility] 600 DO Work Phone: 12-16-2021 11:08-0400 Body mass index (BMI) [Ratio] 33.86 kg/m2 Andrea Espinoza Work Phone: [facility] 600 DO Work Phone: 12-16-2021 11:08-0400 Body surface area Derived from formula 2.24 m2 Andrea Amanda Espinoza Work Phone: [facility] 600 DO Work Phone: 12-16-2021 11:08-0400 Body weight 107.05 kg Andrea Espinoza Work Phone: [facility] 600 DO Work Phone: 12-16-2021 11:08-0400 Diastolic blood pressure 64 mm[Hg] Andrea Amanda Espinoza Work Phone: [facility] 600 DO Work Phone: 12-16-2021 11:08-0400 Heart rate 72 /min Andrea Espinoza Work Phone: [facility] 600 DO Work Phone: 12-16-2021 11:08-0400 Systolic blood pressure 132 mm[Hg] Andrea Amanda Espinoza Work Phone: [facility] 600 DO Work Phone: 01-22-2021 14:36-0400 Body height 177.8 cm Andrea Espinoza Work Phone: [facility] 250 DO Work Phone: 01-22-2021 14:36-0400 Body mass index (BMI) [Ratio] 34.01 kg/m2 Andrea Espinoza Work Phone: [facility] 250 DO Work Phone: 01-22-2021 14:36-0400 Body surface area Derived from formula 2.24 m2 Andrea Espinoza Work Phone: [facility] 250 DO Work Phone: 01-22-2021 14:36-0400 Body weight 107.5 kg Andrea Espinoza Work Phone: [facility] 250 DO Work Phone: 01-22-2021 14:36-0400 Diastolic blood pressure 54 mm[Hg] Andrea Espinoza Work Phone: [facility] 250 DO Work Phone: 01-22-2021 14:36-0400 Heart rate 76 /min Andrea Espinoza Work Phone: [facility] 250 DO Work Phone: 01-22-2021 14:36-0400 Systolic blood pressure 104 mm[Hg] Andrea Espinoza Work Phone: [facility] 250 DO Work Phone: Encounters Encounter Date Encounter Type Care Provider Facility Start: 03-28-2024 End: 03-28-2024 ambulatory Benton Vasquez [facility] Work Phone: Start: 03-28-2024 End: 03-28-2024 Departed Referred Benton Vasquez DO [facility] Start: 03-24-2024 End: 03-24-2024 ambulatory Mica Car Facility:[facility] Start: 03-11-2024 End: 03-11-2024 ambulatory Benton Vasquez Facility:[facility] Start: 03-11-2024 End: 03-11-2024 Departed Referred Benton Vasquez DO [facility] Start: 03-02-2024 End: 03-02-2024 ambulatory NAPOLEON TA Facility:[facility] Start: 03-01-2024 End: 03-01-2024 Office outpatient visit 25 minutes Osvaldo Dickinson MD Work Phone: [facility] Comment on above: Paroxysmal atrial fi brillation (Multi) (Primary Dx); Sick sinus syndrome (Multi); Pacemaker; Essential hypertension; Cardiomyopathy, unspecified type (Multi); Mixed hyperlipidemia; Stage 4 chronic kidney disease (Multi); Non-smoker; BMI 30.0-30.9,adult Start: 03-01-2024 End: 03-01-2024 ambulatory [facility] Start: 02-19-2024 End: 02-19-2024 Emergency department patient visit LORI Vallejo ANGELINAFan [facility] Start: 02-18-2024 End: 02-18-2024 ambulatory Mica Car Facility:[facility] Start: 02-14-2024 End: 02-14-2024 ambulatory Mica Car Facility:[facility] Start: 01-31-2024 End: 01-31-2024 ambulatory Anna Sr Facility:[facility] Start: 01-24-2024 End: 01-24-2024 Emergency department patient visit BOBO BRENNER [facility] Start: 01-17-2024 End: 01-17-2024 Office outpatient visit 25 minutes Blanca Alonso MD Work Phone: [facility] Comment on above: Other atopic dermati tis (Primary Dx); Seborrheic keratosis; Lentigines; History of SCC (squamous cell carcinoma) of skin Start: 01-17-2024 End: 01-17-2024 ambulatory BLANCA ALONSO Not Available Start: 12-27-2023 End: 12-27-2023 ambulatory Mica Car Facility:[facility] Start: 12-14-2023 End: 12-14-2023 Bamboo flowsheet Dank Jones DO [facility] Start: 12-14-2023 End: 12-14-2023 Bamboo flowsheet Dank Jones DO Work Phone: [facility] [place] [facility] Start: 12-14-2023 End: 12-14-2023 Office outpatient visit 25 minutes Dank Jones DO [facility] Phone: [facility] Comment on above: VIRGILIO (obstructive sle ep apnea) (Primary Dx); Hypersomnia; PLMD (periodic limb movement disorder); Obesity due to excess calories, unspecified classification, unspecified whether serious comorbidity present; Snoring Start: 12-14-2023 End: 12-14-2023 ambulatory DANK ROBERT Not Available Start: 12-09-2023 End: 12-09-2023 ambulatory Varghese Caal Facility:[facility] Start: 11-12-2023 End: 11-12-2023 ambulatory Mica Car Facility:[facility] Start: 10-14-2023 End: 10-14-2023 Emergency department patient visit Vini Quinteros Facility:[facility] Start: 10-14-2023 ambulatory Barb Loza Fa cility:[facility] Start: 08-31-2023 End: 08-31-2023 ambulatory BLANCA ALONSO Not Available Start: 08-25-2023 End: 08-25-2023 Office outpatient visit 25 minutes Varghese Caal MD Work Phone: [facility] Comment on above: Essential hypertensi on (Primary Dx); Sick sinus syndrome (Multi); Mixed hyperlipidemia; Paroxysmal atrial fibrillation (Multi); Dilated cardiomyopathy (Multi); Pacemaker; BMI 33.0-33.9,adult Start: 08-25-2023 End: 08-25-2023 ambulatory VARGHESE CAAL [facility] Start: 08-10-2023 End: 08-10-2023 ambulatory BLANCA A PETYURIYI Not Available Start: 06-16-2023 End: 06-16-2023 ambulatory NAPOLEON TA [facility] Start: 05-07-2023 End: 05-07-2023 ambulatory Mica VallejoAnisa Car Facility: [place] Start: 04-22-2023 End: 04-22-2023 ambulatory Varghese Caal Facility:[facility] Start: 03-19-2023 End: 03-19-2023 ambulatory BLANCA ALONSO Not Available Start: 03-05-2023 End: 03-05-2023 ambulatory BLANCA COSBYI Not Available Start: 02-10-2023 End: 02-10-2023 Office outpatient visit 25 minutes Varghese Caal MD Work Phone: [facility] Comment on above: Sick sinus syndrome (CMS/HCC) (Primary Dx); Mobitz type II atrioventricular block; Pacemaker; Essential hypertension; Dilated cardiomyopathy (CMS/HCC); Paroxysmal atrial fibrillation (CMS/HCC) Start: 10-22-[address] Andrea Espinoza Facility: Start: 07-01-2022 Office outpatient vi sit 25 minutes Andrea Espinoza Work Phone: [facility] 600 DO Work Phone: Start: 07-01-[address] Varghese Caal II Facility: Start: 05-28-2022 End: 05-28-[address] TRINO Lange Facility: Start: 05-14-2022 End: 05-15-2022 ambulatory MARIXA ROY Facility: Start: 04-23-[address] Andrea Espinoza Facility: Start: 12-31-2021 Rx Renewal Andrea Espinoza Work Phone: [facility] 250 DO Work Phone: Start: 12-16-2021 Office outpatient vi sit 25 minutes Andrea Espinoza Work Phone: [facility] 600 DO Work Phone: Start: 12-16-[address] Varghese Caal II Facility: Start: 01-22-2021 Office outpatient vi sit 25 minutes Andrea Espinoza Work Phone: [facility] 250 DO Work Phone: Procedures Date Procedure Procedure Detail Performing Clinician Start: 03-11-2024 Urine culture Benton prajapati DO Start: 03-01-2024 Ecg routine ecg w/le ast 12 lds w/i&r Osvaldo Dickinson MD Work Phone: Colonoscopy Andrea Espinoza Work Phone: Comment on above: 22Mar2004; Insertion of pacemak er pulse generator Andrea Espinoza Work Phone: Operation on nose Andrea Edgar Work Phone: Operative procedure on hand Andrea Espinoza Work Phone: Tonsillectomy and adenoidectomy Andrea Espinoza Work Phone: Plan of Treatment Date Care Activity Detail Author Start: 12-09-2032 DTaP/Tdap/Td Vaccine s (2 - Td or Tdap) DTaP/Tdap/Td Vaccines (2 - Td or Tdap) [facility] Start: 01-25-2025 End: 01-25-2025 Patient encounter procedure 01/25/2025 1:05 PM EST Office Visit [facility] [address] [place] [address] Blanca Alonso MD [address] [place] [address] [facility] Start: 12-12-2024 End: 12-12-2024 Patient encounter procedure 12/12/2024 1:00 PM EDT Office Visit [facility] [place] [address] [facility] [place] [phone] Rox Cervantes NP [address] [place], [place] [facility] [place] [facility] Start: 11-28-2024 Glaucoma screening Diabetes: R etinopathy Screening [facility] Start: 11-07-2024 End: 11-07-2024 Patient encounter procedure 11/07/2024 10:30 AM EDT Office [address] [place] [address] Osvaldo Dickinson MD [address] [facility] [address] [place] [address] [facility] Start: 04-06-2024 ambulatory Ambulatory Facility:[facility] [place] Start: 03-28-2024 Urine culture [facility] Start: 03-28-2024 Bacteria identified in Urine by Culture Urine Culture [facility] Start: 03-01-2024 End: 03-01-2024 Patient encounter procedure 03/01/2024 11:00 AM EST Office Visit [address] [facility] [address] [place] [address] Osvaldo Dickinson MD [address] [facility] [address] [place] [address] [facility] Start: 01-17-2024 End: 01-17-2024 Patient encounter procedure 01/17/2024 3:15 PM EDT Office Visit [facility] [address] [place] [phone] Blanca Alonso MD [address] [place] [address] [facility] Start: 12-14-2023 End: 12-14-2023 Patient encounter procedure 12/14/2023 1:30 PM EDT Office Visit [facility] [place] [address] [facility] [place] [id number] Dank Jones DO [address] [place], [place] [id number] Arrived [facility] [place] [facility] Comment on above: Arrived Start: 12-01-2023 Glaucoma screening Diabetes: R etinopathy Screening [facility] Start: 08-25-2023 End: 08-25-2023 Patient encounter procedure 08/25/2023 11:40 AM EDT Office Visit [facility] [address] [place] [phone] Varghese Caal MD [address] [facility] [address] [place] [address] [facility] Start: 06-05-2023 COVID-19 Vaccine ( season) COVID-19 Vaccine () [facility] Start: 04-01-2023 COVID-19 Vaccine (6 - Moderna series) COVID-19 Vaccine (6 - Moderna series) [facility] Start: 02-10-2023 FUV, Provider: Varghese Caal, Status: Pen, Time: 11:30 AM FUV, Provider: Varghese Caal, Status: Pen, Time: 11:30 AM -[facility] 600 DO Work Phone: Start: 07-01-2022 FUV, Provider: Varghese Caal, Status: Pen, Time: 10:40 AM FUV, Provider: Varghese Caal, Status: Pen, Time: 10:40 AM [facility] 600 DO Work Phone: Start: 09-10-2021 FUV, Provider: Varghese Caal, Status: Pen, Time: 2:30 PM FUV, Provider: Varghese Caal, Status: Pen, Time: 2:30 PM [facility] 250 DO Work Phone: Start: 2020 RSV High Risk: (Elde rly (60+) or Population) (1 - 1-dose 75+ series) RSV High Risk: (Elderly (60+) or Population) (1 - 1-dose 75+ series) [facility] Start: 05-09-2020 Echocardiography Echocardiogram [facility] Start: 2005 RSV patient s and/or patients aged 60+ years (1 - 1-dose 60+ series) RSV patients and/or patients aged 60+ years (1 - 1-dose 60+ series) [facility] Start: 11-26-1995 Zoster Vaccines (1 of 2) Zoste r Vaccines (1 of 2) [facility] Start: 1964 Urine screening for protein Diabetes: Urine Protein Screening [facility] Start: 11-26-1963 Hepatitis C screening Hepatitis C Sc reening [facility] Start: 11-26-1955 Diabetic foot examination Diabetes: Foot Exam [facility] Start: 11-26-1955 Glaucoma screening Diabetes: R etinopathy Screening [facility] Start: 1945 Creatinine measurement Creatinine Le sarah [facility] Start: 1945 Hemoglobin A1c measurement Jennifer betes: Hemoglobin A1C [facility] Start: 1945 Lipid panel Lipid Panel [facility] Start: 1945 Medicare Annual Well ness Visit Medicare Annual Wellness Visit (AWV) [facility] Start: 1945 Potassium measurement Potassium Leve l [facility] Immunizations Immunization Date Immunization Notes Care Provider Severo sneed 01-14-2022 Fluad Quadrivalent 0 .5 ML Intramuscular Prefilled Syringe Andrea Amanda [employer] Work Phone: [facility] 600 DO Work Phone: 01-14-2022 Pfizer COVID-19 Vac Bivalent 30 MCG/0.3ML Intramuscular Suspension Andrea Coghead Work Phone: [facility] DO Work Phone: 09-03-2021 pneumococcal conjuga te vaccine, 13 valent Dank Jones DO Work Phone: [facility] 02-15-2021 Moderna COVID-19 Vac cine 100 MCG/0.5ML Intramuscular Suspension [employer] Work Phone: [facility] 600 DO Work Phone: 01-30-2021 influenza virus vacc ine, unspecified formulation Andrea Espinoza Work Phone: [facility] 600 DO Work Phone: 11-28-2020 influenza, high dose seasonal, preservative-free Andrea Vasquezrozulay Work Phone: [facility] 250 DO Work Phone: Comment on above: Series: 06-20-2020 Moderna COVID-19 Vac cine 100 MCG/0.5ML Intramuscular Suspension Andrea Espinoza Work Phone: [facility] 600 DO Work Phone: 05-20-2020 Moderna COVID-19 Vac cine 100 MCG/0.5ML Intramuscular Suspension Andrea Espinoza Work Phone: [facility] 250 DO Work Phone: Comment on above: Series: 04-25-2020 Moderna COVID-19 Vac cine 100 MCG/0.5ML Intramuscular Suspension Andrea Espinoza Work Phone: [facility] 250 DO Work Phone: Comment on above: Series: 12-21-2019 influenza virus vacc ine, unspecified formulation Andrea Espinoza Work Phone: [facility] 600 DO Work Phone: 12-20-2018 influenza, high dose seasonal, preservative-free Andrea Patel Bernarda Work Phone: [facility] 02-19-2018 influenza virus vacc ine, unspecified formulation Andrea Patel Bernarda Work Phone: [facility] 600 DO Work Phone: 02-19-2018 pneumococcal polysaccharide vaccine, 23 valent Andrea Patel Pedroemmazulay Work Phone: [facility] 250 DO Work Phone: Comment on above: Series: 02-19-2018 pneumococcal vaccine , unspecified formulation Andrea Espinoza Work Phone: [facility] 02-18-2017 Influenza, injectabl e, Madin Creighton Canine Kidney, preservative free, quadrivalent Andrea Espinoza Work Phone: [facility] 600 DO Work Phone: 11-24-2016 influenza, high dose seasonal, preservative-free Andrea Espinoza Work Phone: [facility] 600 DO Work Phone: 12-21-2015 pneumococcal conjuga te vaccine, 13 valent Andrea Espinoza Work Phone: [facility] 250 DO Work Phone: Comment on above: Series: Payers Date Payer Category Payer Self-pay 2022 Medicare [id number] 2022 Department of [facility] ( and others) [id number] 2022 () [id number] [id number] 2022 For Life (TFL) F OR LIFE [id number]. [id number] 2022 [employer] ( and others) [id number] 2010 Medicare [id number] 1.13.647. [id number] 1959 [employer] of [employer] ( and others) [id number] 1959 Medicare [id number] 1945 Unknown [id number] 2.16.840.1.726018.3.579. 2.593 1945 Unknown [id number] 2.16.840.1.266708.3.579. 2.593 1945 Unknown [id number] 2.16.840.1.882522.3.579. 2.356 1945 Unknown [id number] 2.16.840.1.997365.3.579. 2.356 1945 Unknown [id number] 2.16.840.1.630390.3.579. 2.356 1945 Unknown [id number] 2.16.840.1.662788.3.579. 2.356 1945 Unknown [id number] 2.16.840.1.068056.3.579. 2.727 1945 Unknown [id number] 2.16.840.1.911076.3.579. 2.727 1945 Unknown [id number] 2.16.840.1.824609.3.579. 2.727 1945 Unknown [id number] 2.16.840.1.989063.3.579. 2.727 1945 Unknown [id number] 2.16.840.1.262560.3.579. 2.727 1945 Unknown [id number] 2.16.840.1.759290.3.579. 2.727 1945 Unknown [id number] 2.16.840.1.066042.3.579. 2.727 1945 Unknown [id number] 2.16.840.1.324995.3.579. 2.727 1945 Unknown [id number] 2.16.840.1.631613.3.579. 2.1259 1945 Unknown [id number] 2.16.840.1.671277.3.579. 2.1259 1945 Unknown [id number] 2.16.840.1.494578.3.579. 2.1259 1945 Unknown [id number] 2.16.840.1.683877.3.579. 2.1259 1945 Unknown [id number] 2.16.840.1.057047.3.579. 2.1259 1945 Unknown [id number] 2.16.840.1.907533.3.579. 2.125 1945 Unknown [id number] 2.16.840.1.685417.3.579. 2.1286 1945 Unknown [id number] 2.16.840.1.688444.3.579. 2.1286 1945 Unknown [id number] 2.16.840.1.225054.3.579. 2.1244 1945 Unknown [id number] 2.16.840.1.787436.3.579. 2.1244 1945 Unknown [id number] 2.16.840.1.448480.3.579. 2.727 1945 Unknown [id number] 2.16.840.1.661217.3.579. 2.727 1945 Unknown [id number] 2.16.840.1.500050.3.579. 2.727 1945 Unknown [id number] 2.16.840.1.178243.3.579. 2.727 1945 Unknown [id number] 2.16.840.1.827814.3.579. 2.72 1945 Unknown [id number] 2.16.840.1.957226.3.579. 2.727 1945 Unknown [id number] 2.16.840.1.398583.3.579. 2.727 1945 Unknown [id number] 2.16.840.1.117628.3.579. 2.727 1945 Unknown [id number] 2.16.840.1.478058.3.579. 2.72 Unknown Unknown [id number] 2.16.840.1.768519.3.579. 2.531 Unknown [id number] 2.16.840.1.235091.3.579. 2.531 Social History Date Type Detail Facility Start: 02-10-2023 End: 12-14-2023 No illicit drug use No illicit drug use [facility] 250 DO Work Phone: Comment on above: quit , 1 PPD; Start: 02-10-2023 End: 08-25-2023 Tobacco smoking status NHIS Ex-smoker [facility] Work Phone: End: 03-22-1992 History of tobacco use Current smoker [facility] Work Phone: End: 03-22-1992 History of tobacco use Cigarette Smoker [facility] Work Phone: Start: 10-11-2022 End: 02-10-2023 Tobacco use and exposure Smokeless tobacco non-user [facility] Work Phone: Start: 02-10-2023 End: 12-14-2023 Alcohol intake Lifetime non-drinker (finding) [facility] Work Phone: Start: 02-10-2023 End: 12-14-2023 Tobacco use panel [facility] Work Phone: Start: 1945 Sex Assigned At Not on file [facility] Work Phone: Start: 01-31-2023 End: 03-01-2024 Exposure to SARS-CoV-2 (event) Not sure [facility] Start: 10-11-2022 [facility] ever smoked [facility] Work Phone: Start: 03-30-2024 Sex Patient sex un known (finding) [facility] Start: 1945 Sex Assigned At Male F [facility] Clinical Notes 05-14-2022 to 03-02-2024 Osvaldo Dickinson MD - 03/01/2024 11:00 AM ESTPatient InstructionsEmguilherme Alonso MD - 01/17/2024 3:15 PM EDTDank Jones DO - 12/14/2023 1:30 PM EDTPatient [...] these instructions at home: Medicines ??? Take [id number] and prescription medicines only as told by [...] provider. Document Revised: 11/27/2020 Document Reviewed: 11/27/2020 [facility] Patient Education ? 2023 [facility] 03-01-2024 History of Present illness Narrative [...] to retrieve his recent lab work from [facility]. I will see him back in [...] Scribe Attestation By signing my name below, IBetzaida LPN, Scribe attest that this documentation has [...] discussion and plan. documented in this encounter [facility] Work Phone: 03-01-2024 Instructions Betzaida Denney [...] instructions on exercise. documented in this encounter [facility] Work Phone: 02-14-2024 Note Patient Education [...] to the c (more content not included)... [facility] 01-31-2024 Note Patient Education Urology Acute [...] these instructions at home: Medicines ??? Take nknp-ayy-xuphfus and prescription medicines only as told by [...] provider. Document Revised: 11/27/2020 Document Reviewed: 11/27/2020 [employer] Patient Education ? 2023 [employer] Benign Prostatic Hyperplasia Benign prostatic hyperplasia (BPH) is an enlarged prostate gland that is caused by the normal aging proc (more content not included)... 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 and he has [...] Visit: 1 year documented in this encounter [facility] 12-27-2023 Note Progress Note-Asaf tapia Patient: LEIGHTON [...] day(s), # 6 tab(s), Refills(s) 0, Pharmacy: [facility] #[id number], 177, cm, 12/27/23 11:02:00 EDT, Height/Length Dosing, 104, kg, 12/27/23 11:02:00 EDT, Weight Dosing [place] 325 mg-5 mg oral tablet: 1 tab(s), Oral, q6hr for pain, 4 tab(s), Refill(s) 0, Take 1 tablet an hour before procedure, post procedure prn, [facility] #[id number], 177, cm, 12/27/23 11:02:00 EDT, Height/Length Dosing, 104, kg, 12/27/23 11:02:00 EDT, Weight Dosing sildenafil 100 mg Tab: 100 mg = 1 tab(s), Oral, As Directed, PRN for erectile dysfunction, Take one tab 1 hour prior to sexual activity., # 30 tab(s), Refills(s) 3, Pharmacy: [facility] #[id number], 177.8, cm, 06/16/23 10:18:00 EDT, Height/Length Dosing, 104.8, kg, 06/16/23 10:18:... terazosin 10 mg Cap: 10 mg = 1 cap(s), Oral, Once a day (at bedtime), # 90 cap(s), Refills(s) 3, Pharmacy: [facility], 177, cm, 12/27/23 11:02:00 EDT, Height/Length Dosing, 104, kg, 12/27/23 11:02:00 EDT, Weight Dosing traMADOL 50 mg Tab: 50 mg = 1 tab(s), Oral, q6hr, Take as needed for pain., # 6 tab(s), Refills(s) 0, Pharmacy: [facility] #[id number], 177.8, cm, 11/12/23 15:35:00 EDT, Height/Length Dosing, [...] Plan: Diagnosis: Prostate hyperplasia with urinary obstruction (EGL97-YI N40.1, Discharge, Medical), Feeling of incomplete bladder emptying (FYV41-NQ R39.14, Working, Medical), Anticoagulated (VFQ25-FN Z79.01, Discharge, Medical). 78 yo male here [...] and Valium prior to procedure. 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 The procedural risks, benefits, details, and treatment alternatives have been discussed with the patient. These include bleeding, infection, continued problems urinating, increased frequency with urgency during the healing process, painful urination, need for indwelling cathete (more content not included)... [facility] Comment on above: Result Comment: Elec [...] you have a fever over 100 degrees. [facility] 12-14-2023 History of Present illness Narrative [...] Actinic keratosis COPD (chronic obstructive pulmonary disease) ([facility]) Coronary heart disease ([facility]) Diabetes mellitus, type 2 ([facility]) HTN (hypertension) ([facility]) Hx of psoriasis Kidney disease [place] (myocardial infarction) ([facility]) VIRGILIO (obstructive sleep apnea) Pacemaker Squamous cell [...] was counselled on the risk of stroke, [place], and sudden with VIRGILIO, along with the [...] Return to clinic: documented in this encounter [facility] 11-12-2023 Note Patient Education Urology Benign Prostatic [...] Follow these instructions at home: ? Take dypg-ejy-wreymmr and prescription medicines only as told by [...] develop side effec (more content not included)... [facility] 10-14-2023 Note ED Patient Education Note [...] under your knee. General instructions ? Take aewk-qte-xdgwxya and prescription medicines only as told by [...] provider. Document Revised: 08/21/2020 Document Reviewed: 08/21/2020 [employer] Patient Education ? 2022 [employer] [facility] 08-25-2023 History of Present illness Narrative [...] discussion and plan. documented in this encounter [facility] Work Phone: 08-25-2023 Instructions Jo Ann [...] of your visit. documented in this encounter [facility] Work Phone: 02-10-2023 History of Present [...] recent pacemaker checks. documented in this encounter [facility] Work Phone: 02-10-2023 Instructions Alize James [...] up per routine documented in this encounter [facility] Work Phone: 05-14-2022 Note PROCEDURE: XR [...] by: JOE DU Date: 2022-05-14 18:40 [facility] Evaluation note Diagnosis Sick sinus syndrome (CMS/HCC)- Primary Sinoatrial node dysfunction Mobitz type II atrioventricular block Mobitz (type) II atrioventricular block Pacemaker Cardiac pacemaker in situ Essential hypertension Unspecified essential hypertension Dilated cardiomyopathy (CMS/HCC) Other primary cardiomyopathies Paroxysmal atrial fibrillation (CMS/HCC) Atrial fibrillation documented in this encounter [facility] Work Phone: Evaluation note* Diagnosis Essential hypertension- Primary Unspecified essential hypertension Sick sinus syndrome (Multi) Sinoatrial node dysfunction Mixed hyperlipidemia Paroxysmal atrial fibrillation (Multi) Atrial fibrillation Dilated cardiomyopathy (Multi) Other primary cardiomyopathies Pacemaker Cardiac pacemaker in situ BMI 33.0-33.9,adult documented in this encounter [facility] Work Phone: Evaluation note* Diagnosis Other [...] Non-smoker BMI 30.0-30.9,adult documented in this encounter [facility] Work Phone: Evaluation note* Diagnosis VIRGILIO (obstructive sleep apnea)- Primary Obstructive sleep apnea (adult) (pediatric) Hypersomnia Hypersomnia, unspecified PLMD (periodic limb movement disorder) Periodic limb movement disorder Obesity due to excess calories, unspecified classification, unspecified whether serious comorbidity present Snoring Other dyspnea and respiratory abnormality [facility] information [facility] Work Phone: History of Present illness NarrativePatient returns in follow-up [...] advocated and he was congratulated on his efforts. Briefly he comments, also, that his renal function curiously has improved. I believe this could be on the basis of his improve lifestyle modification.[facility] 250 DO Work Phone: History of [...] the merits of diet and weight loss. 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 -[facility] 600 DO Work Phone: Reason for referral (narrative)* Consultation (Routine) - Authorized Specialty Diagnoses / Procedures Referred By Contac t Referred To Contact Cardiology Diagnoses Sick sinus syndrome (CMS/HCC) Procedures Follow Up In Cardiology Varghese Caal MD [address] [place] [address], [place] [address] Varghese Caal MD [address] [place] [address], [place] [phone] Referral ID Status Reason Start Date Expiration Date V isits Requested Visits Authorized [id number] Authorized 02/10/2023 02/10/2024 1 1 [facility] Work Phone: Reteqj for referral (narrative)* Consultation (Routine) - Authorized Specialty Diagnoses / Procedures Referred By Contac t Referred To Contact Cardiology Diagnoses Sick sinus syndrome (Multi) Procedures Follow Up In Cardiology Varghese Caal MD [address] [place] [address] 2, [address] [address] Osvaldo Dickinson MD [address] [place] [address] 2, [address] [address] Referral ID Status Reason Start Date Expiration Date V isits Requested Visits Authorized [id number] Authorized 08/25/2023 08/24/2024 1 1 [facility] Work Phone: Chief Complaint LEIGHTON ARCINIEGA is being seen for a 6 month follow-up of.LEIGHTON ARCINIEGA is being seen for a 6-9 month follow-up of.LEIGHTON ARCINIEGA is being seen for a 6-9 month follow-up of. Family History No Family History Records FoundUnknown Family Member Name Dates Details Family history [...] Purpose Advance Directives No Advanced Directives Records Found Advance Directive Response Recorded Date/ Time Advance Directives No January 2:23pm Additional Source Comments (unrecognized sect ion and content) No Status Records FoundNo Status Records FoundNo Status Records FoundNo Status Records FoundNo Status Records FoundNo Status Records FoundNo Status Records FoundNo Status Records FoundNo Status Records FoundNo Status Records FoundNo Status Records Found INFORMATION SOURCE (unrecogn ized section and content) DATE CREATED AUTHOR 06/01/2022 [facility] DATE CREATED AUTHOR AUTHOR'S ORGANIZ ATION 07/03/2022 [employer] DATE CREATED AUTHOR AUTHOR'S ORGANIZ ATION 11/05/2022 [facility] DATE CREATED AUTHOR AUTHOR'S ORGANIZ ATION 11/14/2023 [facility] DATE CREATED AUTHOR AUTHOR'S ORGANIZ ATION 01/18/2024 [facility] DATE CREATED AUTHOR AUTHOR'S ORGANIZ ATION 02/21/2024 [facility] DATE CREATED AUTHOR AUTHOR'S ORGANIZ ATION 03/04/2024 [facility] DATE CREATED AUTHOR AUTHOR'S ORGANIZ ATION 03/31/2024 [facility] DATE CREATED AUTHOR AUTHOR'S ORGANIZ ATION 04/02/2024 [facility] DATE CREATED AUTHOR AUTHOR'S ORGANIZ ATION 04/04/2024 [facility] Reason for Visit (unrecogniz ed section and content) Reason Comments Follow-up 6-9mo Reason Comments Follow-up 6-9 months Specialty Diagnoses / Procedures Referred By Contac t Referred To Contact Cardiology Diagnoses Sick sinus syndrome (Multi) Procedures Follow Up In Cardiology Varghese Caal MD [address] [place] [address], [address] [address] Varghese Caal MD [address] [place] [address], [address] [address] Referral ID Status Reason Start Date Expiration Date V isits Requested Visits Authorized [id number] Authorized 02/10/2023 02/10/2024 1 1 Reason Comments Skin Check Follow-up Reason Comments Follow-up 6-9 months Specialty Diagnoses / Procedures Referred By Contac t Referred To Contact Cardiology Diagnoses Sick sinus syndrome (Multi) Procedures Follow Up In Cardiology [facility] Osvaldo [address] [place] [address], [address] [address] Phone: tel: fax: Referral ID Status Reason Start Date Expiration Date V isits Requested Visits Authorized [id number] Authorized 08/25/2023 08/24/2024 1 1 Reason Comments Sleep Apnea Care Teams (unrecognized sec tion and content) Drafter Detail Relationship Specialty Start Date End Date Andrea Espinoza DO [address] [place] [address] PCP - General 03/22/99 Drafter Detail Relationship Specialty Start Date End Date Andrea Espinoza DO [address] [place] [address] PCP - General 03/22/99 Drafter Detail Relationship Specialty Start Date End Date Lori Medina MD [address] [place] [address] PCP - General Family Medicine 10/09/22 Drafter Detail Relationship Specialty Start Date End Date Andrea Espinoza DO [address] [place] [address] PCP - General 03/22/99 Drafter Detail Relationship Specialty Start Date End Date Lori Medina MD [address] [place] [address] PCP - General Family Medicine 10/09/22 Drafter Detail Relationship Specialty Start Date End Date Lori Medina MD [address] [place] [address] PCP - General Family Medicine 10/09/22 Team Status: Inactive Member Role Status Dates Benton Vasquez DO Attending Provider Active S tart: March 11, 2024 End: March 11, 2024 Team Status: Inactive Member Role Status Dates Benton Vasquez DO Attending Provider Active S tart: March 28, 2024 End: March 28, 2024 Goals (unrecognized section and content) Goals may be documented in a n alternate section FOR RECORDS PERTAINING TO PATIENTS WHO ARE [...] BE BASED ON THE PRIMARY CLINICAL RECORDS. [facility]. provides no warranty or guarantee of the accuracy or completeness of information in this document.
--- NOTE | 2024-04-05 20:27 | ECG_ITS ---
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
--- NOTE | 2024-04-05 20:27 | XR_ITS ---
The [address] [address] Patient Name: LEIGHTON ARCINIEGA MRN: [id number] date: 1945 Sex: M Assigned Patient Location: ER Current Patient Location: ED.MAIN Accession/Order Number: [id number] Exam Date: 04/05/2024 19:38 Report Date: 04/05/2024 21:07 At the request of: RAYMOND CELIS Procedure: XR chest 1V EXAMINATION: XR chest 1V HISTORY: sob COMPARISON: XR chest 05/08/2019 FINDINGS: LUNGS: Patchy and confluent opacities within the mid and lower lung regions bilaterally. VASCULATURE: No increased pulmonary vasculature. PLEURA: No pneumothorax, effusion, or pleural thickening. CARDIAC: No cardiomegaly or cardiac silhouette abnormality. MEDIASTINUM: No visible mass or adenopathy. BONES: No fracture or visible bone lesion. OTHER: Stable cardiac pacer. XR/XR chest 1V IMPRESSION: 1. Moderate-marked bilateral pulmonary infiltrates suggestive of pneumonia.. Electronically authenticated by: JOE DU Date: 04/05/2024 21:07
--- NOTE | 2024-04-05 20:29 | ED.GENADUL1 ---
HPI HPI - General Adult General Chief complaint: Shortness of Breath/Dyspnea Stated complaint: SOB CHILLS Time Seen by Provider: 04/05/24 20:02 Source: patient Mode of arrival: walk-in Limitations: no limitations History of Present Illness HPI narrative: 78-year-old male to the emergency department chief complaint of shortness of breath. Progressive over the last 48 hours. He reports a cough productive of yellow sputum. He reports fever and chills. He denies any chest pain. He has a history of COPD. No baseline oxygen requirement. He reports he was feeling lightheaded and dizzy with exertion at home and had a pulse ox of 85%. Related Data Home Medications ?Medication ?Instructions ?Recorded ?Confirmed acetaminophen 500 mg capsule 1,000 mg PO Q6H PRN fever or pain 02/26/24 03/28/24 allopurinol 300 mg tablet 300 mg PO DAILY 02/26/24 03/28/24 amlodipine 10 mg tablet 10 mg PO DAILY 02/26/24 03/28/24 apixaban 5 mg tablet (Eliquis) 5 mg PO Q12H 02/26/24 03/28/24 aspirin 81 mg tablet,delayed 81 mg PO .weekly 02/26/24 03/28/24 release (Adult Aspirin Regimen) calcium 315 mg (as 1 tab PO DAILY 02/26/24 03/28/24 citrate)-vitamin D3 5 mcg (200 unit) tablet (Calcium Citrate + D) carvedilol 6.25 mg tablet 6.25 mg PO Q12H 02/26/24 03/28/24 cyanocobalamin (vitamin B-12) 1,000 mcg PO DAILY 02/26/24 03/28/24 1,000 mcg tablet (Vitamin B-12) ferrous sulfate 325 mg (65 mg 325 mg PO DAILY 02/26/24 03/28/24 iron) tablet (iron) furosemide 20 mg tablet 20 mg PO Q12H 02/26/24 03/28/24 glipizide 10 mg tablet 10 mg PO BID 02/26/24 03/28/24 hydralazine 50 mg tablet 100 mg PO Q8H 02/26/24 03/28/24 insulin glargine 100 unit/mL (3 24 unit subcut BID 02/26/24 03/28/24 mL) subcutaneous pen multivitamin (Daily Multi-Vitamin 1 tab PO DAILY 02/26/24 03/28/24 tablet) omeprazole 20 mg capsule,delayed 20 mg PO DAILY 02/26/24 03/28/24 release semaglutide 1 mg/dose (4 mg/3 mL) 1 mg subcut QWEEK 02/26/24 03/28/24 subcutaneous pen injector (Ozempic) sildenafil 100 mg tablet 100 mg PO Q24H PRN sexual activity 02/26/24 03/28/24 simvastatin 20 mg tablet 20 mg PO DAILY 02/26/24 03/28/24 spironolactone 25 mg tablet 25 mg PO DAILY 02/26/24 03/28/24 tacrolimus 0.1 % topical ointment 1 applic topical Q12H PRN skin 02/26/24 03/28/24 irritation terazosin 10 mg capsule 10 mg PO BEDTIME 02/26/24 03/28/24 tolterodine 2 mg capsule,extended mg PO 04/05/24 release 24 hr Previous Rx's ?Medication ?Instructions ?Recorded cefdinir 300 mg capsule 600 mg (2 x 300 mg) PO DAILY #30 03/30/24 caps fluconazole 200 mg tablet 400 mg (2 x 200 mg) PO DAILY 30 03/30/24 (Diflucan) days #60 tabs hyoscyamine sulfate 0.125 mg 0.125 mg sublingual QID #40 tabs 03/30/24 sublingual tablet mirabegron 25 mg tablet,extended 25 mg PO DAILY #30 tabs 03/30/24 release 24 hr (Myrbetriq) Allergies Allergy/AdvReac Type Severity Reaction Status Date / Time fosinopril (From Monopril) Allergy Severe shortness Verified 04/05/24 20:09 of breath metoprolol Allergy Severe shortness Verified 04/05/24 20:09 of breath strawberry Allergy Severe Rash Verified 04/05/24 20:09 Opioid HPI Opioid Management Most Recent Opioid Data: Last Pain Scale 0 03/30/24 10:42 03/30/24 Last Pain Assessment 03/30/24 10:42 Last ORT Total Score 3 03/28/24 23:31 03/28/24 Last ORT Risk Category Low Risk 03/28/24 23:31 03/28/24 Review of Systems ROS Status of ROS 10 or more systems reviewed and unremarkable except as noted in history and below [facility] Medical History (Updated 04/05/24 @ 21:55 by Vini Quinteros MD) Acute kidney injury ?N17.9 - Acute kidney failure, unspecified (ICD-10) Bladder spasm ?N32.89 - Other specified disorders of bladder (ICD-10) Urinary tract infection ?N39.0 - Urinary tract infection, site not specified (ICD-10) Urinary tract infection ?N39.0 - Urinary tract infection, site not specified (ICD-10) Failure of outpatient treatment ?Z78.9 - Other specified health status (ICD-10) Urinary tract infection ?N39.0 - Urinary tract infection, site not specified (ICD-10) Skin cancer ?C44.90 - Unspecified malignant neoplasm of skin, unspecified (ICD-10) Myocardial infarction ?I21.9 - Acute myocardial infarction, unspecified (ICD-10) Pacemaker ?Z95.0 - Presence of cardiac pacemaker (ICD-10) CKD (chronic kidney disease) ?N18.9 - Chronic kidney disease, unspecified (ICD-10) CAD (coronary artery disease) ?I25.10 - Atherosclerotic heart disease of redding coronary artery without angina pectoris (ICD-10) A-fib ?I48.91 - Unspecified atrial fibrillation (ICD-10) Erectile dysfunction ?N52.9 - Male erectile dysfunction, unspecified (ICD-10) UTI (urinary tract infection) ?N39.0 - Urinary tract infection, site not specified (ICD-10) GERD (gastroesophageal reflux disease) ?K21.9 - Gastro-esophageal reflux disease without esophagitis (ICD-10) Hypertension ?I10 - Essential (primary) hypertension (ICD-10) Diabetes ?E11.9 - Type 2 diabetes mellitus without complications (ICD-10) Surgical History History of arthroscopic knee surgery ?Z98.890 - Other specified postprocedural states (ICD-10) Hx of tonsillectomy ?Z90.89 - Acquired absence of other organs (ICD-10) Family History Mother Family history of CHF (congestive heart failure) Family history of myocardial infarction Family history of hypertension Family history of diabetes mellitus Family history of COPD (chronic obstructive pulmonary disease) Grandmother Family history of CHF (congestive heart failure) Brother Family history of CHF (congestive heart failure) Family history of myocardial infarction Family history of hypertension Family history of COPD (chronic obstructive pulmonary disease) Father Kidney failure Social History Within the past year, how often did you have a drink containing alcohol: never Score interpretation: A score less than 4 is consistent with normal alcohol consumption. Smoking status: Former smoker Non-prescribed substance use: denies use Known occupational exposures/hazards: No Highest level of school completed/degree received: Associate degree: occupational, technical, vocational program Do you want help with school or training: No Little interest or pleasure in doing things: not at all Feeling down, depressed, or hopeless: not at all Gender Identity: male Exam Narrative Exam Narrative: VITALS: I have reviewed the triage vital signs. GENERAL: Adult male in mild respiratory distress NEURO: Alert and oriented. Moves all extremities. Face is symmetric and expressive. EYES: PERRL. No scleral icterus or conjunctival injection. No discharge. HENT: Normocephalic, atraumatic. Hearing is grossly intact. Nares grossly patent and without discharge. Mucous membranes moist. NECK: No JVD. Patient moves neck without restriction. CARDIO: Rhythm regular. Normal rate. No murmur, rub, or gallop. Pulses equal bilaterally in the upper and lower extremity. No lower extremity edema. PULM: Diminished at the bases bilaterally. Some trace wheezes. Rhonchi that clear with coughing. Mild conversational dyspnea. Mild increased work of breathing. GI/: Abdomen is soft and non-tender. Normoactive bowel sounds. EXTREMITIES: Symmetric muscle bulk. No joint swelling. No clubbing, cyanosis, or deformity. SKIN: Warm and dry. Normal turgor. No rash or lesions appreciated. PSYCH: Mood, affect, and interaction is appropriate to the setting. Constitutional Vital Signs, click to edit/add: Last Vital Signs Temp 98.4 F 04/05/24 19:59 Pulse 101 H 04/05/24 21:40 Resp 20 04/05/24 21:40 BP 151/77 H 04/05/24 21:00 Pulse Ox 93 L 04/05/24 21:40 O2 Del Method Room Air 04/05/24 19:59 O2 Flow Rate 2 04/05/24 19:59 Course Vital Signs Vital signs: Vital Signs Temperature 98.4 F 04/05/24 19:59 Pulse Rate 94 H 04/05/24 19:59 Respiratory Rate 22 H 04/05/24 19:59 Blood Pressure 145/101 H 04/05/24 19:59 Pulse Oximetry 96 04/05/24 19:59 Oxygen Delivery Method Nasal Cannula 04/05/24 19:59 Oxygen Delivery Flow Rate 2 04/05/24 19:59 Temperature 98.4 F 04/05/24 19:59 Pulse Rate 101 H 04/05/24 21:40 Respiratory Rate 20 04/05/24 21:40 Blood Pressure 151/77 H 04/05/24 21:00 Pulse Oximetry 93 L 04/05/24 21:40 Oxygen Delivery Method Room Air 04/05/24 19:59 Oxygen Delivery Flow Rate 2 04/05/24 19:59 Medical Decision Making MDM Narrative Medical decision making narrative: 78-year-old male to the emergency department with chief complaint of cough and shortness of breath. He is hypoxic on room air and placed on 2 L nasal cannula. Otherwise stable vitals. Basic labs, lactate, blood culture, troponin, BNP. Will obtain a chest x-ray. COVID and influenza testing are ordered. Lab work reviewed and noted. Renal function remains slightly elevated from his baseline similar to discharge. He has a white count. Lactate is normal. COVID and influenza testing are negative. His BNP is significantly elevated suggesting a component of CHF exacerbation. Chest x-ray concerning for bilateral infiltrates. Recent hospital admission, IV antibiotics; will cover for healthcare acquired pneumonia with vancomycin and Zosyn. MRSA swab is ordered so de-escalation can occur quickly given his ARA. Given his elevated BNP as well we will treat with a dose of Lasix. He undoubtedly has some COPD exacerbation as well. Solu-Medrol and breathing treatments will be provided as needed. SIRS positive with source pneumonia. He meets sepsis criteria. With his acute hypoxia he meets definition of severe sepsis. He is not in septic shock. Blood cultures and lactate were ordered. No indication for sepsis fluid bolus in this patient with CHF and no shock state. Appropriate antibiotics were initiated. Initial sepsis bundle complete. Case was discussed with Liliana who agrees admit the patient to the service of Dr. Dutta. Medical Records Medical records reviewed: Yes I reviewed the patient's medical records Lab Data Lab results reviewed: Yes I reviewed the patient's lab results Labs: Lab Results 04/05/24 04/05/24 Range/Units 20:25 20:58 WBC 16.2 H (4.0-11.0) 10^3/uL RBC 3.89 L (4.70-6.10) 10^6/uL Hgb 12.5 L (14.0-18.0) g/dL Hct 37.9 L (42.0-54.0) % MCV 97.4 H (80.0-94.0) fL MCH 32.1 (25.9-34.0) pg MCHC 33.0 (29.9-35.2) g/dL RDW 14.1 (11.0-15.0) % Plt Count 282 (150-450) 10^3/uL MPV 8.5 L (9.5-13.5) fL Neut % (Auto) 82.9 H (43.0-75.0) % Lymph % (Auto) 7.0 L (20.5-60.0) % [place] % (Auto) 8.6 (1.7-12.0) % Eos % (Auto) 0.8 L (0.9-7.0) % Baso % (Auto) 0.2 (0.2-2.0) % Neut # (Auto) 13.5 H (1.4-6.5) 10^3/uL Lymph # (Auto) 1.1 L (1.2-3.8) 10^3/uL [place] # (Auto) 1.4 H (0.3-0.8) 10^3/uL Eos # (Auto) 0.1 (0.0-0.7) 10^3/uL Baso # (Auto) 0.0 (0.0-0.1) 10^3/uL Abs Immat Gran (auto) 0.08 H (0.00-0.03) 10^3/uL Imm/Tot Granulo (auto) 0.5 (0.0-0.5) % Sodium 135 L (136-145) mmol/L Potassium 4.6 (3.5-5.1) mmol/L Chloride 102 (98-107) mmol/L Carbon Dioxide 22.5 (21.0-32.0) mmol/L Anion Gap 15.1 BUN 34.0 H (7.0-18.0) mg/dL Creatinine 1.83 H (0.70-1.30) mg/dL Est GFR ( Amer) 44 L (>=60 mL/min/1.73m^2) Est GFR (Non-Af Amer) 36 L (>=60 mL/min/1.73m^2) BUN/Creatinine Ratio 18.6 Glucose 98 (74-106) mg/dL Lactate 1.5 (0.4-2.0) mmol/L Calcium 9.4 (8.5-10.1) mg/dL Troponin I High Sens 48.1 (4.0-76.1) pg/mL NT-Pro-B Natriuret Pep 67335.0 H* (<=1800.0) pg/mL Urine Color Lt. yellow (YELLOW) Urine Clarity Clear (CLEAR) Urine pH 6.0 (5.0-9.0) Ur Specific [place] 1.010 (1.005-1.025) Urine Protein 100 A (NEG/TRACE) mg/dL Urine Glucose (UA) Negative (NEGATIVE) mg/dL Urine Ketones Negative (NEGATIVE) mg/dL Urine Occult Blood Negative (NEGATIVE) Urine Nitrite Negative (NEGATIVE) Urine Bilirubin Negative (NEGATIVE) Urine Urobilinogen 0.2 (0.2-1.0) EU/dL Ur Leukocyte Esterase Moderate A (NEGATIVE) Urine RBC 2-5 A (0-2) #/HPF Urine WBC 20-50 A (NONE SEEN) #/HPF Ur Squamous Epith Cells Few A (NONE/RARE) #/LPF Urine Crystals None seen (None Seen) #/HPF Urine Bacteria Trace A (NONE SEEN) #/HPF Urine Casts None seen (NONE SEEN) #/LPF Urine Mucus None seen (NONE SEEN) Ur Culture Indicated? Yes Influenza Type A Ag Negative Influenza Type B Ag Negative SARS-CoV-2 Ag (CV2AG) Negative (NEGATIVE) Imaging Data Chest x-ray: Attestation: I have reviewed the pertinent imaging results. Radiologist's impression: ITS Impressions Chest X-Ray 04/05/24 20:27 IMPRESSION: 1. Moderate-marked bilateral pulmonary infiltrates suggestive of pneumonia.. Electronically authenticated by: JOE DU Date: 04/05/2024 21:07 ECG Data Attestation: I personally reviewed and interpreted this ECG as follows: (Sinus rhythm at a rate of 98. Intraventricular conduction block. no STEMI. No change from previous exam) Critical Care Time Critical Care Time Critical Care Time: Yes Total Critical Care Time: 35 Attestation: Critical Care Procedure Note Authorized and Performed by: Vini Quinteros DO Total critical care time: 32 min Due to a high probability of clinically significant, life threatening deterioration, the patient required my highest level of preparedness to intervene emergently and I personally spent this critical care time directly and personally managing the patient. This critical care time included obtaining a history; examining the patient; pulse oximetry; ordering and review of studies; arranging urgent treatment with development of a management plan; evaluation of patient's response to treatment; frequent reassessment; and, discussions with other providers. This critical care time was performed to assess and manage the high probability of imminent, life-threatening deterioration that could result in multi-organ failure. It was exclusive of separately billable procedures and treating other patients and teaching time. Please see MDM section and the rest of the note for further information on patient assessment and treatment. Discharge Plan Discharge Chief Complaint: Shortness of Breath/Dyspnea Clinical Impression: Pneumonia, Acute hypoxemic respiratory failure, Acute exacerbation of chronic heart failure, COPD exacerbation, Severe sepsis Patient Disposition: Admitted As Inpatient Time of Disposition Decision: 21:54 Condition: Fair Prescriptions / Home Meds: No Action hyoscyamine sulfate 0.125 mg Tablet, Sublingual 0.125 mg sublingual QID Qty: 40 0RF mirabegron [Myrbetriq] 25 mg tablet extended release 24 hr 25 mg PO DAILY Qty: 30 11RF cefdinir 300 mg capsule 600 mg PO DAILY Qty: 30 0RF fluconazole [Diflucan] 200 mg tablet 400 mg PO DAILY 30 Days Qty: 60 0RF tolterodine 2 mg capsule,extended release 24hr PO carvedilol 6.25 mg tablet 6.25 mg PO Q12H glipizide 10 mg tablet 10 mg PO BID spironolactone 25 mg tablet 25 mg PO DAILY amlodipine 10 mg tablet 10 mg PO DAILY simvastatin 20 mg tablet 20 mg PO DAILY omeprazole 20 mg capsule,delayed release(DR/EC) 20 mg PO DAILY allopurinol 300 mg tablet 300 mg PO DAILY hydralazine 50 mg tablet 100 mg PO Q8H furosemide 20 mg tablet 20 mg PO Q12H Eliquis 5 mg tablet 5 mg PO Q12H cyanocobalamin (vitamin B-12) [Vitamin B-12] 1,000 mcg tablet 1,000 mcg PO DAILY aspirin [Adult Aspirin Regimen] 81 mg tablet,delayed release (DR/EC) 81 mg PO .weekly calcium citrate-vitamin D3 [Calcium Citrate + D] 315 mg-5 mcg (200 unit) tablet 1 tab PO DAILY multivitamin [Daily Multi-Vitamin] Tablet 1 tab PO DAILY insulin glargine 100 unit/mL (3 mL) insulin pen 24 unit subcut BID acetaminophen 500 mg capsule 1,000 mg PO Q6H PRN (Reason: fever or pain) terazosin 10 mg capsule 10 mg PO BEDTIME Ozempic 1 mg/dose (4 mg/3 mL) pen injector 1 mg subcut QWEEK ferrous sulfate [iron] 325 mg (65 mg iron) tablet 325 mg PO DAILY sildenafil 100 mg tablet 100 mg PO Q24H PRN (Reason: sexual activity) tacrolimus 0.1 % ointment 1 applic TOPICAL Q12H PRN (Reason: skin irritation) Print Language: Arabic Referrals: Jayy Dutta MD [Primary Care Provider] - 1 week
[2024-04-05 20:50] LABS: Basophils Percent Auto 0.2 % (0.2-2.0); Eosinophils Absolute Auto 0.1 10^3/uL (0.0-0.7); Eosinophils Percent Auto 0.8 % (0.9-7.0); Hematocrit 37.9 % (42.0-54.0); Hemoglobin 12.5 g/dL (14.0-18.0); Immature Granulocytes Abs Auto 0.08 10^3/uL (0.00-0.03); Immature Granulocytes Pct Auto 0.5 % (0.0-0.5); Lymphocytes Absolute Auto 1.1 10^3/uL (1.2-3.8); Mean Corpuscular Hemoglobin 32.1 pg (25.9-34.0); Mean Corpuscular Volume 97.4 fL (80.0-94.0); Mean Platelet Volume 8.5 fL (9.5-13.5); Monocytes Absolute Auto 1.4 10^3/uL (0.3-0.8); Monocytes Percent Auto 8.6 % (1.7-12.0); Neutrophils Absolute Auto 13.5 10^3/uL (1.4-6.5); Neutrophils Percent Auto 82.9 % (43.0-75.0); Platelet Count 282 10^3/uL (150-450); Red Blood Count 3.89 10^6/uL (4.70-6.10); Red Cell Distribution Width 14.1 % (11.0-15.0); White Blood Count 16.2 10^3/uL (4.0-11.0)
[2024-04-05 21:04] LABS: Bilirubin Urine NEGATIVE (NEGATIVE); Blood Urine NEGATIVE (NEGATIVE); Clarity Urine CLEAR (CLEAR); Color Urine LT. YELLOW (YELLOW); Glucose Urine UA NEGATIVE (NEGATIVE); Ketones Urine NEGATIVE (NEGATIVE); Leukocyte Esterase Urine MODERATE (NEGATIVE); Nitrite Urine NEGATIVE (NEGATIVE); Protein Urine 100 mg/dL (NEG/TRACE); Urobilinogen Urine 0.2 EU/dL (0.2-1.0)
[2024-04-05 21:09] LABS: Urine Microscopic Indicated YES
[2024-04-05 21:14] LABS: Lactate/Lactic Acid 1.5 mmol/L (0.4-2.0)
[2024-04-05] MEDS: IPRATROPIUM/ALBUTEROL SULFATE 3 ML AMPUL.NEB IH (21:18)
[2024-04-05 21:19] LABS: Anion Gap 15.1; BUN Creatinine Ratio 18.6; Calcium 9.4 mg/dL (8.5-10.1); Carbon Dioxide 22.5 mmol/L (21.0-32.0); Chloride 102 mmol/L (98-107); Estimated GFR (African America 44 (>=60 mL/min/1.73m^2); Estimated GFR (Non-African Ame 36 (>=60 mL/min/1.73m^2); Glucose 98 mg/dL (74-106); Potassium 4.6 mmol/L (3.5-5.1); Sodium 135 mmol/L (136-145); Troponin I High Sensitivity 48.1 pg/mL (4.0-76.1)
[2024-04-05 21:24] LABS: Influenza Virus A Antigen Negative; Influenza Virus B Antigen Negative; Internal Control Within Normal Limits; SARS-CoV-2 Ag NEGATIVE (NEGATIVE)
[2024-04-05 21:42] LABS: Bacteria Urine TRACE #/HPF (NONE SEEN); Mucus Urine NONE SEEN (NONE SEEN); Squamous Epithelial Cell Urine FEW #/LPF (NONE/RARE); WBC Urine 20-50 #/HPF (NONE SEEN)
[2024-04-05 21:43] LABS: Cast Seen? NONE SEEN #/LPF (NONE SEEN); Crystals Seen? None Seen #/HPF (None Seen); Urine Culture Indicated YES
[2024-04-05] MEDS: FUROSEMIDE 40 MG/4 ML VIAL IVP (22:16)
[2024-04-05] MEDS: METHYLPREDNISOLONE SOD SUCC PF 125 MG/2 ML VIAL IVP (22:16)
[2024-04-05] MEDS: PIPERACILLIN SODIUM/TAZOBACTAM 4.5 GM in 0.9 % SODIUM CHLORIDE 50 ML IV (22:16)
[2024-04-05] MEDS: LIDOCAINE 2% JELLY 10 ML UR (22:23)
--- OUTSIDE RECORDS SUMMARY | 2024-04-05 22:52 | XMS_ITS | CCD ---
Author Organization [facility] CliniSyhi Care Team Providers Care Monotype Operator Name Role Phone Andrea Espinoza Unavailable Unavailable [...] Afua MARCIAL, Dr. Varghese Lord Attending Unavailable Jenelleuinn II, [...] Unavailable Lori Medina MD Primary Care Provider [phone] BLANCA ALONSO Attending Unavailable CHUCK, BLANCA Zambrano Attending Unavailable DANK JONES Attending Unavailable CHUCK, BLANCA Zambrano Attending Unavailable BLANCA ALONSO Attending Unavailable BOBO BRENNER Attending Unavailable LORI MEDINA Primary Care Unavailable LORI MEDINA Primary Care Unavailable BEATA DEGROOT Attending Unavailable Andrea Espinoza DO Primary Care Provider [phone] VARGHESE CAAL Attending Unavailable AFUA VARGHESE P [...] Enalapril; 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: [enalapril] Drug Allergy 02-10-20 Cough [facility] (17 sources) Metoprolol; 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: [metoprolol] Drug Allergy 10-12-19 23 Cough, Unknown -[facility] y 250 DO Work Phone: (3 sources) Fosinopril; 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: [Monopril] Drug Allergy 03-16-20 14 [facility] (1 source) Metoprolol Drug Allergy 05-16-19 15 [facility] (1 source) strawberry allergenic extract Drug Allergy 05-16-19 15 [facility] (1 source) tomato allergenic extract Drug Allergy 05-16-19 15 [facility] (2 sources) hydroCHLOROthiazide / Metoprolol; 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: [hydrochlorothiazide-m etoprolol] Drug Allergy [facility] (2 sources) [place]; 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: [Strawberries] Food allergy (disorder) [facility] (2 sources) Tomatoes; 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: [Tomatoes] Food allergy (disorder) [facility] (6 sources) Fosinopril; 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: [FOSINOPRIL] Drug [...] Start: 03-20-2020 take 2 tablets by mo [facility] three times daily hydrALAZINE HCl - 50 [...] sources) Polyene Antifungal Start: 08-10-2023 nystatin (Mycostatin) [id number] UNIT/GM powder Indications: Erythema intertrigo Apply to [...] Active Start: 01-14-2021 take 2 tablets by [facility] once daily Spironolactone 25 MG Oral [...] disease (2 sources) Atherosclerotic heart disease of [place] coronary artery without angina pectoris; 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: [Old [...] 06-01-2022 10-11-2022 Chronic Other aftercare (1 source) [facility] (current) use of aspirin; 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: [ALF CURRENT USE OF ASPIRIN] Onset: 06-01-2022 Episodic Other aftercare (1 source) Other nursing home (current) drug therapy; 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: [OTH ALF CURRENT DRUG THERAPY] Onset: 06-01-2022 Episodic Other [...] (U) No Growth 2 Days PERFORMED BY: [place] [address] PATHOLOGIST BANKING PIN ADJUSTER OSCAR ESCOBAR M.D. Normal [facility] Comment on above: Performed By: #### C UU #### [address] C Urineon 03-26-2024 Bacteria identified Cx [...] Locations R1: This test was performed at: [facility], [address] [place] [address], [id number]- , [place], Normal [facility] Comment on above: Performed By: #### 2 [id number] #### [facility] [address] [place] [address] Main OR Preoperative Recordo n 03-20-2024 Main OR Preoperative Record Main OR Preoperative Record Holding Area Document Type FTURO Summary Primary Physician: Mica Car MD Finalized Date/Time: 03/20/24 16:29:34 Pt. Name: LEIGHTON ARCINIEGA Tyrese MuirB./Sex: 1945 Male Med Rec #: [id number] Physician: Mica Car MD Financial #: [id number] Pt. Type: O Room/Bed: / Admit/Disch: 12/27/23 [...] Complaints of Pain: No Skin Integrity Intact, [place], Warm, & Dry Vitals - EU Blood Pressure 122/75 Pulse 81 bpm Respirations 18 br/min SPO2 96 % Additional None RN Reviewed Yes Specimens Collected Last Modified By: Ankita Gray RN 12/27/23 11:25:48 Finalized By: Kendrick GODINEZ, Dalia MARTINEZ Document Signatures Signed By: Latha David LPN 12/27/23 11:01 Latha David LPN 12/27/23 11:02 Kendrick GODINEZ, Dalia MARTINEZ 03/20/24 16:29 Normal [facility] Urine Cultureon 03-11-2024 Bacteria identified Cx Nom (U) ORGANISM: Prudence glabrata (O:CANGLA) Pledger Count 75,000 PERFORMED BY: [facility] [address] [place] [address] PATHOLOGIST BANKING PIN ADJUSTER OSCAR ESCOBAR M.D. Normal [facility] Comment on above: Performed By: #### C UU #### [address] Urine cultureOrdered By: Derek Vasquez on 03-11-2024 Bacteria identified Cx Nom (U) Abnormal [facility] Urology Office/Clinic Noteon 03-02-2024 Urology Office/Clinic Note [...] that he had 3 day stay at [facility] on 02/26/24 for severe UTI & [...] further bleeding since then. Pt went to [place] ER 02/26/24 d/t persistent dysuria. Admitted for [...] 124ml Told him to continue Alfuzosin. Ordered: [id number] Measure Post Void residual urine and/or bladder [...] Urnls Dip Stick Auto w/o Microscopy POC 82871 3. Anticoagulated (Z79.01: joint terminal attack controller (current) use of anticoagulants) on Eliquis. Follow-up [...] Hypercholesteremia Inco (more content not included)... Normal [facility] Comment on above: Result Comment: Elec tronically Signed By: NATA TA PA-C\Date and Time Signed: 03/02/24 17:13 EST\.br\Electronically Co-Signed By: Martir Shea\Date and Time Co-Signed: 03/02/24 13:38 EST ECG 12 Leadon 03-01-2024 AV paced rhythm [facility] Work Phone: URINE CULTUREon 02-19-2024 Bacteria identified Cx Nom (U) CULTURE RESULTS 10-50,000 ORGANISMS/mL NORMAL UROGENITAL ELIN Normal [facility] Comment on above: Performed By: #### 6 30-4 #### [facility] ([id number]) [address] [facility], [address] [place] [address] URN MACROSCOPIC NURon 2023 BILIRUBIN LETHA Negative Normal NEG [facility] Comment on above: Performed By: #### N UM #### [facility] ([id number]) [address] [place] [address] BLOOD/HGB LETHA Large Abnormal NEG [facility] Comment on above: Performed By: #### N UM #### [facility] ([id number]) [address] [place] [address] 70120 GLUCOSE LETHA >=1000 Abnormal NEG [facility] Comment on above: Performed By: #### N UM #### [facility] ([id number]) [address] [place] [address] 08167 KETONES LETHA Negative Normal NEG [facility] Comment on above: Performed By: #### N UM #### [facility] ([id number]) [address] [place] [address] 19026 LEUKOCYTE ESTERASE LETHA Small Abnormal NEG [facility] Comment on above: Performed By: #### N UM #### [facility] ([id number]) [address] [place] [address] 92002 NITRITE LETHA Negative Normal [facility] Comment on above: Performed By: #### N UM #### [facility] ([id number]) [address] [place] [address] 02791 PH LETHA 6.0 Normal 5.0-8.5 [facility] Comment on above: Performed By: #### N UM #### [facility] ([id number]) [address] [place] [address] 34876 PROTEIN LETHA 100 mg/dL Abnormal NEG [facility] Comment on above: Performed By: #### N UM #### [facility] ([id number]) [address] [place] [address] 08976 SPECIFIC GRAVITY LETHA 1.015 Normal 1.003-1.035 [facility] Comment on above: Performed By: #### N UM #### [facility] ([id number]) [address] [place] [address] 00324 UROBILINOGEN LETHA 0.2 eu/dL Normal <1.1 [facility] Comment on above: Performed By: #### N UM #### [facility] ([id number]) [address] [place] [address] Inpatient Patient Summaryon 02-14-2024 Inpatient Patient Summary Inpatient Patient Summary [place] [address] Clinical Summary Person Information Name: LEIGHTON ARCINIEGA Age: 78 Years : 1945 Sex: Male PCP: Lori Medina MD Marital Status: Race: White Ethnicity: Non- or Language: Swedish Visit Id: Visit Reason: BPH WITH URINARY OBSTRUCTION Speciality: Acuity: Enc Type: Outpatient Med Service: Surgery Arrival: 02/14/2024 09:35:51 Discharge: Dispo Type: Address: Danie TONEY [address] [place] [phone] Provider Notes: Diagnosis: BPH with obstruction/lower urinary [...] day as needed for pain. acetaminophen-hydroc odone (Louise 325 mg-5 mg oral tablet) 1 Tablets [...] EU - Rezum Discharge Instructions (CUSTOM) Normal [facility] Main OR Intraoperative Recor don 02-14-2024 Main OR Intraoperative Record Main OR Intraoperative Record IntraOp Document Type FTURO Summary Primary Physician: Mica Car MD Finalized Date/Time: 02/14/24 12:08:58 Pt. Name: LEIGHTON ARCINIEGA D.O.B./Sex: 1945 Male Med Rec #: [id number] Physician: Mica Car MD Financial #: [id number] Pt. Type: O Room/Bed: / Admit/Disch: 02/14/24 [...] 3 Case Attendee Josep SANDHU, Jocy Perea MASK DESIGNERAura Role Performed Surgeon - Primary Steel Crane Operator - Primary Scrub - Primary Time [...] Corral 02/14/24 12:08 Jocy Corral 02/14/24 12:08 [facility] Main OR Preoperative Recordo n 02-14-2024 Main OR Preoperative Record Main OR Preoperative Record Holding Area Document Type FTURO Summary Primary Physician: Mica Car MD Finalized Date/Time: 02/14/24 11:48:27 Pt. Name: LEIGHTON ARCINIEGA Tyrese [place]/Sex: 1945 Male Med Rec #: [id number] Physician: Mica Car MD Financial #: [id number] Pt. Type: O Room/Bed: / Admit/Disch: 02/14/24 [...] Complaints of Pain: No Skin Integrity Intact, [place], Warm, & Dry Vitals - EU Blood Pressure 152/74 Pulse 61 bpm Respirations 18 br/min SPO2 97 % Additional None RN Reviewed Yes Specimens Collected Last Modified By: Jocy Corral 02/14/24 11:48:23 Finalized By: Jocy Corral Document Signatures Signed By: Latha David LPN 02/14/24 11:05 Jocy Corral 02/14/24 11:48 Jocy Corral 02/14/24 11:48 Normal [facility] Operative Reporton Operative Report Operative Report Patient: [...] clearer. Follow-up in 1 month PVR.. Normal [facility] Comment on above: Result Comment: Elec tronically Signed By: Mica Car MD\.br\Date and Time Signed: 02/14/24 12:03 EST Outpatient Surgery Discharge Instructionon 02-14-2024 Outpatient Surgery Discharge Instruction Outpatient Surgery Discharge Instruction [place] [id number] Patient Discharge Instructions PERSON INFORMATION Name: LEIGHTON [...] Strength 500 mg oral tablet) acetaminophen-hydroc odone (Louise 325 mg-5 mg oral tablet) allopurinol (allopurinol [...] if questions or concerns Unchanged acetaminophen-hydroc odone (Louise 325 mg-5 mg oral tablet) 1 Tablets [...] omeprazole (omep (more content not included)... Normal [facility] Urology Office/Clinic Noteon 01-31-2024 Urology Office/Clinic Note Urology Office/Clinic Note Chief Complaint [facility] ER follow up HPI Staff 78 year old male patient presents today for a [facility] ER follow up 01/23/24. Pt has gomez. [...] with voice recognition artificial intelligence software, specifically [employer], [employer] and or Zannel. Substitutions may have occurred due to the [...] (N52.9: Male erectile dysfunction, unspecified) Hx of [place] in 2002. Has pacemaker in place. Denies [...] in medic (more content not included)... Normal [facility] Comment on above: Result Comment: Elec tronically Signed By: MICHAEL Sr APRN, [place] X\.br\Date and Time Signed: 01/31/24 16:26 EST URINE CULTUREon 01-24-2024 Bacteria identified Cx Nom (U) CULTURE RESULTS NO GROWTH AT <1000 CFU/mL Normal [facility] Comment on above: Performed By: #### 6 30-4 #### [facility] ([id number]) [address] [place] [address], [address] [place] [address] URN MACROSCOPIC NURon 2023 BILIRUBIN LETHA Negative Normal NEG [facility] Comment on above: Performed By: #### N UM #### [facility] ([id number]) [address] [place] [address] 80138 BLOOD/HGB LETHA Trace Abnormal NEG [facility] Comment on above: Performed By: #### N UM #### [facility] ([id number]) [address] [place] [address] 90698 GLUCOSE LETHA >=1000 Abnormal NEG [facility] Comment on above: Performed By: #### N UM #### [facility] ([id number]) [address] [place] [address] 41350 KETONES LETHA Negative Normal NEG [facility] Comment on above: Performed By: #### N UM #### [facility] ([id number]) [address] [place] [address] 75956 LEUKOCYTE ESTERASE LETHA Large Abnormal NEG [facility] Comment on above: Performed By: #### N UM #### [facility] ([id number]) [address] [place] [address] 91329 NITRITE LETHA Negative Normal NEG [facility] Comment on above: Performed By: #### N UM #### [facility] ([id number]) [address] [place] [address] 13893 PH LETHA 6.0 Normal 5.0-8.5 [facility] Comment on above: Performed By: #### N UM #### [facility] ([id number]) [address] [place] [address] 94177 PROTEIN LETHA 100 mg/dL Abnormal NEG [facility] Comment on above: Performed By: #### N UM #### [facility] ([id number]) [address] [facility] [place] [address] SPECIFIC GRAVITY LETHA 1.015 Normal 1.003-1.035 [facility] Comment on above: Performed By: #### N UM #### [facility] ([id number]) [address] [place] [address] UROBILINOGEN LETHA 0.2 eu/dL Normal <1.1 [facility] Comment on above: Performed By: #### N UM #### [facility] ([id number]) [address] [place] [address] 45067 Inpatient Patient Summaryon 12-27-2023 Inpatient Patient Summary Inpatient Patient Summary [address] [address] Clinical Summary Person Information Name: LEIGHTON ARCINIEGA Age: 78 Years : 1945 Sex: Male PCP: Lori Medina MD Marital Status: Race: White Ethnicity: Non- or Language: Swedish Visit Id: Visit Reason: BPH WITH URINARY OBSTRUCTION Speciality: Acuity: Enc Type: Outpatient Med Service: Surgery Arrival: 12/27/2023 09:33:05 Discharge: Dispo Type: Address: [address] [place] [address] DR [address]ONE[address] [place] [phone] Provider Notes: Diagnosis: Anticoagulated; Other obstructive and [...] day as needed for pain. acetaminophen-hydroc odone (Louise 325 mg-5 mg oral tablet) 1 Tablets [...] When: Mica Car Comments: Office to schedule [facility] Type Location Start Finish State NCV Pacemaker (FT) FT.CARDIO 06/01/2024 11:00 AM 06/01/2024 11:15 AM Confirmed Patient Education Information: EU - Cystoscopy Discharge Instructions (CUSTOM) [facility] Main OR Intraoperative Recor don 12-27-2023 Main OR Intraoperative Record Main OR Intraoperative Record IntraOp Document Type FTURO Summary Primary Physician: Mica Car MD Finalized Date/Time: 12/27/23 11:42:38 Pt. Name: LEIGHTON ARCINIEGA/Sex: 1945 Male Med Rec #: [id number] Physician: Mica Car MD Financial #: [id number] Pt. Type: O Room/Bed: / Admit/Disch: 12/27/23 [...] Micky Vargas Role Performed Surgeon - Primary Steel Crane Operator - Primary Scrub - Primary Time [...] By: Ankita Gray RN 12/27/23 11:42 Normal [facility] Operative Reporton Operative Report Operative Report Patient: LEIGHTON ARCINIEGA Age: 78 years Sex: Male : 1945 Associated Diagnoses: None Author: Mica Car MD Procedure Operative Information Details: Date/ Time: 12/27/2023 12:10:00. Pre-Op Dx: BPH w/ LUTS - N40.1. Post-Op Dx: Feeling of incomplete bladder emptying (ZOH21-BA R39.14, Working, Medical), Anticoagulated (MNQ17-XX Z79.01, Discharge, Medical), Same. Anesthesia Type: Local. [...] and Valium prior to procedure. 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 -Will need blood thinners held prior to procedure. Elevated risk of bleeding discussed. -Patient did better on terazosin. Will DC tamsulosin and restart terazosin 10 mg daily. Medication sent to [facility] in [place].. Normal [facility] Comment on above: Result Comment: Elec tronically Signed By: Mica Car MD\.br\Date and Time Signed: 12/27/23 12:14 EDT Outpatient Surgery Discharge Instructionon 12-27-2023 Outpatient Surgery Discharge Instruction Outpatient Surgery Discharge Instruction [place] [id number] Patient Discharge Instructions PERSON INFORMATION Name: ARCINIEGALEIGHTON [...] When: Mica Car Comments: Office to schedule [facility] Location Start [facility] NCV Pacemaker (FT) FT.CARDIO 06/01/2024 11:00 AM [...] Date You may receive a survey from [employer] asking you to rate your care experience. Your feedback is important and will help us understand what we do well and how we can improve the quality of care we provide to you, your loved ones and our community. It?s an honor to serve you. Thank you for choosing [facility] Normal [facility] Ambulatory Visit Summaryon 0 11-12-2023 Ambulatory Visit [...] Strength 500 mg oral tablet) acetaminophen-hydroc odone (Louise 325 mg-5 mg oral tablet) allopurinol (allopurinol [...] if questions or concerns Unchanged acetaminophen-hydroc odone (Louise 325 mg-5 mg oral tablet) 1 Tablets [...] Mouth E (more content not included)... Normal [facility] Urology Office/Clinic Noteon 11-12-2023 Urology Office/Clinic Note [...] (N52.9: Male erectile dysfunction, unspecified) Hx of [place] in 2002. Has pacemaker in place. Denies [...] antigen) Seborr (more content not included)... Normal [facility] Comment on above: Result Comment: Elec tronically Signed By: Josep SANDHU, Mica Johns\.br\Date and Time Signed: 11/12/23 16:43 EDT\.br\Electronically Co-Signed By: Maria Luz Mejia\.br\Date and Time Co-Signed: 11/12/23 16:14 EDT PTH Intacton 10-15-2023 Parathyrin.intact [Mass/Vol] 49 pg/mL Invalid Interpretation Code 15-65 [facility] Comment on above: Result Comment: Perf ormed at: [facility] [address] [id number] PhD Carlos Singh Performed By: #### 1 [id number] #### [facility] [address] [place] [address] ED Clinical Summaryon 2023 ED Clinical Summary ED Clinical Summary [address] [address] ED Clinical Summary Person Information Name: LEIGHTON ARCINIEGA Yaa/[facility] Age: 77 Years : 1945 Sex: Male Language: Swedish PCP: Lori Medina MD Marital Status: Visit [...] 13:18:55 10/14/2023 13:18:55 ADDRESS: Danie [address] [facility] [id number] PHYS DOC NOTES: MEDICAL INFORMATION: Prescriptions Given: [id number], [address] [place], [place] [id number], [phone] acetaminophen-hydroc odone (Louise 325 mg-5 mg oral tablet) 1 Tablets [...] EDUCATION INFORMATION: Instructions: Acute Knee Pain, Adult, Dtpn-vk-Brwl Follow up: With: Address: When: Andrea Espana [address] [place], [place] [address] Business (1) In 3 days 10/17/2023 With: Address: When: Call to schedule a follow-up appointment with your orthopedic surgeon. Use the Louise as needed for pain along with icing. . If you are unable to get in with your orthopedic surgeon, I have provided a referral for another one. In 3 days 10/17/2023 With: Address: When: Lori Medina [facility] [place] [address] Business (1) In 3 days DIAGNOSIS: Posterior left knee pain Normal [facility] ED Note-Physicianon 10-14-19 ED Note-Physician ED Note-Physician [...] he previously saw an orthopedic surgeon in [facility] for arthritis in which he will follow-up for further management of care. Patient is on Eliquis therefore I cannot prescribe him naproxen or any form of NSAID. Due to his age I did not feel a muscle relaxer was appropriate either. Based on this he is being prescribed 4 doses of Louise. He was educated on appropriate use of [...] q4hr for pain, 4 tab(s), Refill(s) 0, [id number], 177, cm, 10/14/23 11:44:00 EDT, Height/Length Dosing, 104.8, kg, 10/14/23 11:44:00 EDT, Weight Dosing Disposition Plan Patient Discharge Condition stable Discharge Disposition home Discharge Prescription List Prescriptions Louise 325 mg-5 mg oral tablet, 1 tab(s), Oral, q4hr, PRN Follow-up With When Contact Information Andrea Espana In 3 days 10/17/2023 EDT [address] [place] [address]- Business (1) Additional Instructions: Call to schedule a follow-up appointment with your orthopedic surgeon. Use the Louise as needed for pain along with icing. . If you are unable to get in with your orthopedic surgeon, I have provided a referral for another one. In 3 days 10/17/2023 EDT Additional Instructions: Lori Medina In 3 days [address] [place] [address]- Business (1) Additional Instructions: Patient Education Acute Knee Pain, Adult, Xpty-cz-Oiut Attestation Patient seen and evaluated by the physician medical assistant per diem. Attending physician was present in the emergency department and supervised care. This visit was performed by both the physician and an APC. I performed all aspects of the MDM as documented. This report was transcribed using voice recognition software. Every effort was made to ensure accuracy, however, inadvertently computerized veterinary receptionist mistakes may be present. Appropriate healthcare PPE was used in evaluating this patient. The patient was placed in a mask. The healthcare provider was wearing mask, gloves, and utiliz (more content not included)... Normal [facility] Comment on above: Result Comment: Elec tronically Signed By: Vini Quinteros DO\.br\Date and Time Signed: 10/14/23 16:09 EDT\.br\Electronically Co-Signed By: Stewart BENDER, Nayla Quiros\.br\Date and Time Co-Signed: 10/14/23 13:46 EDT ED Patient Summaryon 024 ED Patient Summary ED Patient Summary [facility] [address] [place] [id number] Patient Discharge Instructions Person Information Name: LEIGHTON ARCINIEGA Age: 77 Years Arrival Date: 10/14/2023 11:36:13 Discharge Diagnosis: Posterior left knee pain Primary Care Physician: Lori Medina MD Provider Information Primary Provider: Vini Quinteros DO [employer] Helper:Nayla William PA-C The exam and treatment you received in the Emergency Department were for an urgent problem and are not intended as complete care. It is important that you follow up with a doctor, nurse practitioner, or physician?s medical assistant per diem for ongoing care. If your symptoms become [...] Instructions: With: Address: When: Andrea Espana [address] [place] [id number] Business (1) In 3 days 10/17/2023 With: Address: When: Call to schedule a follow-up appointment with your orthopedic surgeon. Use the Louise as needed for pain along with icing. . If you are unable to get in with your orthopedic surgeon, I have provided a referral for another one. In 3 days 10/17/2023 With: Address: When: Lori Medina [address] [facility] [place] [address] Business (1) In 3 days In the event that this physician does not participate in your insurance network, please consult with your insurance company to find a nearby participating provider. Patient Education Materials: Acute Knee Pain, Adult, Jltr-zm-Tsxk A MESSAGE TO ALL PATIENTS REGARDING OPIOIDS PRESCRIPTION OPIOIDS: WHAT YOU NEED TO KNOW Prescription opioids can be used to help relieve mxazipsk-lf-bmlumb pain and are often prescribed following a [...] or yo (more content not included)... Normal [facility] XR Knee Complete 4+ Views Le fton [...] mGy = na DAP = na Normal [facility] Screenson 06-17-2023 Screens [id number] #1.00TIFF Normal [facility] Screens [id number] #1.00TIFF Normal [facility] Ambulatory Visit Summaryon 0 06-16-2023 Ambulatory Visit [...] [facility] Patient Educationon 06-16-19 24 Patient Education Urology [...] these instructions at home: Medicines ? Take [id number]-psxvhfl and prescription medicines only as told by [...] include cig (more content not included)... Normal [facility] Urology Office/Clinic Noteon 06-16-2023 Urology Office/Clinic Note [...] (N52.9: Male erectile dysfunction, unspecified) Hx of [place] in 2002. Has pacemaker in place. Denies [...] Information Josep SANDHU, Mica Johns, URL, URO [address] [place] [address]- [phone] Additional Instructions: Has f/u already scheduled 11/12/23 [...] Amputation, Tonsillectomy. (more content not included)... Normal [facility] Comment on above: Result Comment: Elec tronically Signed By: NATA TA PA-C\.br\Date and Time Signed: 06/16/23 10:56 EDT\.br\Electronically Co-Signed By: Kriss Frankel\.br\Date and Time Co-Signed: 06/16/23 10:48 EDT [place] 05-10-2023 Screens [id number] #1.00TIFF [facility] Screens [id number] #1.00TIFF [facility] Ambulatory Visit Summaryon 0 05-07-2023 Ambulatory [...] NATA TA PA-C Where: [facility] Normal [address] [place] [address]- \.br\ You Need to Schedule the Following Appointments\.br\ Follow Up with NATA TA PA-C, URL When: \.br\ Comments:\.br\ 1 mos w/ PVR \.br\ Where:\.br\ [address]\ [place] [address]\.br\ [phone]\.br\ Medications\.br\ What How Much When Instructions\.br\ New tadalafil (tadalafil 10 mg Tab) 1 Tablets By Mouth As Directed as needed for for erectile dysfunction Refills: 3 Take one tab 1 hour prior to sexual activity. Do not exceed 20mg in 48hrs. Pickup at [facility] #[id number]\.br\ New tamsulosin (tamsulosin 0.4 mg Cap) 1 Capsules By Mouth Once a day (in the evening) Refills: 11 Pickup at [facility] #[id number]\.br\ Unchanged acetaminophen (Tylenol Extra Strength 500 mg [...] or concerns \.br\ Pharmacy Information\.br\ [facility] #[id number]: [address] [place], [place] [phone]\.br\ Allergies\.br\ Monopril (Dry cough)\.br\ Strawberries (rash)\.br\ Tomatoes [...] Symptoms of this condition include:\.br\ ? \ [facility] Ambulatory Visit Summary LEIGHTON ARCINIEGA :1945 Visit [...] Johns, URL, URO When: Comments: 6 mos ([facility]) Where: [address] [place] [phone] Medications What How Much When Instructions Unchanged [...] Every da (more content not included)... Normal [facility] Patient Educationon 05-07-19 Patient Education Urology Erectile [...] these instructions at home: Medicines ? Take ijvv-qjj-tgfdgfu and prescription medicines only as told by [...] include cig (more content not included)... Normal [facility] Urology Office/Clinic Noteon 05-07-2023 Urology Office/Clinic Note [...] (N52.9: Male erectile dysfunction, unspecified) Hx of [place] in 2002. Has pacemaker in place. AMANDA [...] Contact Information Mica Car MD, URL, URO [address] [place] [address]- [phone] Additional Instructions: 1 mos w/ PVR Patient Education Erectile Dysfunction Kriss Heredia, personally scribed for Dr. Car on 05/07/2023 15:06:02. . Documentation recorded by the scribKriss holt, accurately reflects the services(s) I performed and decisions made by me. Authenticated by Dr. Car on 05/07/2023 16:05:51. Problem List/Past Medical History Ongoing Anticoagulated Arthritis Aspirin marshall (more content not included)... Normal [facility] Comment on above: Result Comment: Elec tronically Signed By: Mica Car MD\.br\Date and Time Signed: 05/07/23 16:06 EST\.br\Electronically Co-Signed By: Kriss Frankel\.br\Date and Time Co-Signed: 05/07/23 15:08 EST Consent for Treatmenton -0 Consent for Treatment [id number] #1.00TIFF Normal [facility] Consent for Treatment [id number] #1.00TIFF Normal [facility] Consent for Treatment [id number] #1.00TIFF Normal [facility] Hct & Hgbon 04-22-2023 Hematocrit (Bld) [Volume fraction] 39.0 % Normal 37.7-49.0 [facility] Comment on above: Performed By: #### 1 [id number], [id number], [id number], 1194906 ####[facility] [address] [place] [address] Hemoglobin (Bld) [Mass/Vol] 12.5 g/dL Low 13.5-17.5 [facility] Comment on above: Performed By: #### 1 [id number], [id number], 35685127, 2250747 ####[facility] [address] [place] [address] Magnesiumon 04-22-2023 Magnesium [Mass/Vol] 1.7 mg/dL Normal 1.3-2.4 [facility] Comment on above: Performed By: #### 1 [id number], 79354465, [id number], 5640492 ####[facility] [address] [place] [address] PSA Totalon 04-22-2023 PSA Total 1.6 ng/mL Normal 0.1-3.5 [facility] Comment on above: Result Comment: The concentration of PSA determined by different manufacturers can vary due to differences in assay methods and reagent specificity. Values obtained from different assay methods cannot be used interchangeably. The methodology used for this result was chemiluminescence using [employer] Access Hybritech PSA reagent. Performed By: #### 1 [id number] ####[facility] [address] [place] [address] Physician Orderon 04-22-2023 Physician Order [id number] 85#1.00TIFF Normal [facility] Physician Order [id number] 28#1.00TIFF Normal [facility] Renal Panelon 04-22-2023 Albumin [Mass/Vol] 3.9 g/dL Normal 3.3-5.0 [facility] Comment on above: Performed By: #### 1 [id number], 89246012, 22486110, 1614775 ####[facility] [address] [place] [address] Anion gap [Moles/Vol] 11 mmol/L Normal 6-16 [facility] Comment on above: Performed By: #### 1 [id number], 59556723, 40118047, 8459796 ####[facility] [address] [place] [address] BUN/Creat Ratio 15 No Units Normal 10-20 [facility] Comment on above: Performed By: #### 1 [id number], 16822713, 51189554, 8393526 ####[facility] [address] [place] [address] Calcium [Mass/Vol] 9.0 mg/dL Normal 8.9-11.1 [facility] Comment on above: Performed By: #### 1 9194911, 57907359, 94949018, 4215415 ####[facility] [address] [place] [address] Chloride [Moles/Vol] 104 mmol/L Normal 101-111 [facility] Comment on above: Performed By: #### 1 2280093, 53291794, 55670425, 4101500 ####[facility] [address] [place] [address] CO2 [Moles/Vol] 29 mmol/L Normal 21-31 [facility] Comment on above: Performed By: #### 1 2768709, 57820055, 71845979, 5951421 ####[facility] [address] [place] [address] Creatinine [Mass/Vol] 1.7 mg/dL High 0.5-1.3 [facility] Comment on above: Performed By: #### 1 5580228, 09719052, 83604399, 8626774 ####[facility] [address] [place] [address] Glucose [Mass/Vol] 144 mg/dL Normal 55-199 [facility] Comment on above: Performed By: #### 1 4661577, 85351719, 35453124, 6118048 ####[facility] [address] [place] [address] Phosphate [Mass/Vol] 3.0 mg/dL Normal 1.9-4.6 [facility] Comment on above: Performed By: #### 1 8935769, 10082508, 23720705, 8842785 ####[facility] [address] [place] [address] Potassium [Moles/Vol] 3.9 mmol/L Normal 3.5-5.3 [facility] Comment on above: Performed By: #### 1 6847960, 17306963, 94141404, 6028609 ####[facility] [address] [place] [address] Sodium [Moles/Vol] 140 mmol/L Normal 135-145 [facility] Comment on above: Performed By: #### 1 4824876, 42765757, 04547160, 9075336 ####[facility] [address] [place] [address] Urea nitrogen [Mass/Vol] 26 mg/dL High 5-21 [facility] Comment on above: Performed By: #### 1 2229030, 91400688, 50226417, 0386485 ####[facility] [address] [place] [address] U Protein/Creat Ratioon 02-0 1-4 U Creatinine 60.9 mg/dL Invalid Interpretation Code [facility] Comment on above: Performed By: #### 1 [id number] ####[facility] [address] [place] [address] U Prot/Creat Ratio 19.90 mg/gm Cr Normal .00-200.00 [facility] Comment on above: Performed By: #### 1 [id number] ####[facility] [address] [place] [address] Ur Total Protein 12.1 mg/dL Invalid Interpretation Code [facility] Comment on above: Performed By: #### 1 [id number] ####[facility] [address] [place] [address] eGFRon 04-22-2023 eGFR 41 mL/min/1.73 m2 Low >=59 [facility] Comment on above: Order Comment: Order added by Discern Expert. Performed By: #### 1 [id number], 07194241, 89513332, 9914354 ####[facility] [address] [place] [address] Office Visit (Cardiology)on 07-01-2022 Follow-up visit Diagnoses/Problems [...] Weight Tips; Status:Complete - Retrospective Authorization; Done: [id number] Some eating tips that can help you lose weight.; Status:Complete - Retrospective Authorization; Done: [id number] Essential hypertension Renew: Carvedilol 6.25 MG Oral Tablet; Take 1 tablet twice daily Hyperlipidemia Renew: Simvastatin 20 MG Oral Tablet; TAKE 0.5 TABLET Bedtime SocHx: Former smoker Tobacco Use Screening; Status:Complete; Done: [id number] Patient Instructions Please bring all medicines, vitamins, [...] education sheet. 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 Vitals Vital Signs Recorded: [id number] 10: (more content not included)... Normal [facility] Tobacco Screening.on 023 Adult depression screening assessment No [facility] DO Work Phone: Fall risk assessment b) One or more falls in the last year [facility] DO Work Phone: Tobacco use status CPHS b) No [facility] DO Work Phone: CBC AUTO DIFFon 05-28-2022 BASO # 0.0 103/ul Normal 0.0-0.1 [facility] Comment on above: Performed By: #### C BC #### [facility] [address] [address] [address] Susie Hale Basophils/100 WBC (Bld) 0.5 % Normal 0.2-2.0 [facility] Comment on above: Performed By: #### C BC #### [facility] [address] [address] [address] Susie Hale EO # 0.1 103/ul Normal 0.0-0.7 [facility] Comment on above: Performed By: #### C BC #### [facility] [address] [address] [address] Susie Hale Eosinophils/100 WBC (Bld) 1.8 % Normal 0.9-7.0 [facility] Comment on above: Performed By: #### C BC #### [facility] [address] [address] [address] Susie Hale Erythrocyte distribution width (RBC) [Ratio] 13.0 % Normal 11.0-15.0 [facility] Comment on above: Performed By: #### C BC #### [facility] [address] [address] [address] Susie Hale Hematocrit (Bld) [Volume fraction] 35.0 % Critically low 42.0-54.0 [facility] Comment on above: Performed By: #### C BC #### [facility] [address] [address] [address] Susie Hale Hemoglobin (Bld) [Mass/Vol] 12.2 g/dL Critically low 14.0-18.0 [facility] Comment on above: Performed By: #### C BC #### [facility] [address] [address] [address] Susie Hale IG # 0.05 10e3/ul Critically high 0.00-0.03 [facility] Comment on above: Performed By: #### C BC #### [facility] [address] [address] [address] Susie Hale IG % 0.8 % Critically high 0.0-0.5 [facility] Comment on above: Performed By: #### C BC #### [facility] [address] [place] [address] Dr. Susie Hale LYMPH # 1.9 103/ul Normal 1.2-3.8 [facility] Comment on above: Performed By: #### C BC #### [facility] [address] [place] [address] Dr. Susie Hale Lymphocytes/100 WBC (Bld) 28.7 % Normal 20.5-60.0 [facility] Comment on above: Performed By: #### C BC #### [facility] [address] [place] [address] Dr. Susie Hale MANUAL DIFF REQ NO Normal [facility] Comment on above: Performed By: #### C BC #### [facility] [address] [place] [address] Dr. Susie Hale MCH (RBC) [Entitic mass] 32.1 pg Normal 25.9-34.0 [facility] Comment on above: Performed By: #### C BC #### [facility] [address] [place] [address] Dr. Susie Hale MCHC (RBC) [Mass/Vol] 34.9 g/dL Normal 29.9-35.2 [facility] Comment on above: Performed By: #### C BC #### [facility] [address] [place] [address] Dr. Susie Hale MCV (RBC) [Entitic vol] 92.1 fL Normal 80.0-94.0 [facility] Comment on above: Performed By: #### C BC #### [facility] [address] [place] [address] Dr. Susie Hale MONO # 0.7 103/ul Normal 0.3-0.8 [facility] Comment on above: Performed By: #### C BC #### [facility] [address] [place] [address] Dr. Susie Hale Monocytes/100 WBC (Bld) 10.9 % Normal 1.7-12.0 [facility] Comment on above: Performed By: #### C BC #### [facility] [address] [place] [address] Dr. Susie Hale NEUT # 3.7 103/ul Normal 1.4-6.5 [facility] Comment on above: Performed By: #### C BC #### [facility] [address] [place] [address] Dr. Susie Hale Neutrophils/100 WBC (Bld) 57.3 % Normal 43.0-75.0 [facility] Comment on above: Performed By: #### C BC #### [facility] [address] [place] [address] Dr. Susie Hale Platelet mean volume (Bld) [Entitic vol] 8.5 fL Critically low 9.5-13.5 [facility] Comment on above: Performed By: #### C BC #### [facility] [address] [place] [address] Dr. Susie Hale PLT 238 103/ul Normal 150-450 [facility] Comment on above: Performed By: #### C BC #### [facility] [address] [place] [address] Dr. Susie Hale RBC 3.80 106/ul Critically low 4.70-6.10 [facility] Comment on above: Performed By: #### C BC #### [facility] [address] [place] [address] Dr. Susie Hale WBC 6.5 103/ul Normal 4.0-11.0 [facility] Comment on above: Performed By: #### C BC #### [facility] [address] [place] [address] STROKE HEAD WOon [...] MAILE CANO Date: 2022-05-28 18:17 Normal [facility] PROF 14(COMP METB)on 023 Albumin [Mass/Vol] 3.5 g/dL Normal 3.4-5.0 [facility] Comment on above: Performed By: #### C MP #### [facility] [address] [place] [address] Dr. Susie Hale Albumin/Globulin [Mass ratio] 1.1 {ratio} Normal [facility] Comment on above: Performed By: #### C MP #### [facility] [address] [place] [address] Dr. Susie Hale ALP [Catalytic activity/Vol] 87 U/L Normal 46-116 [facility] Comment on above: Performed By: #### C MP #### [facility] [address] [address] [address] Susie Hale ALT [Catalytic activity/Vol] 16 U/L Normal 16-63 [facility] Comment on above: Performed By: #### C MP #### [facility] [address] [place] [address] Dr. Susie Hale Anion gap [Moles/Vol] 10.0 mmol/L Normal [facility] Comment on above: Performed By: #### C MP #### [facility] [address] [place] [address] Dr. Susie Hale AST [Catalytic activity/Vol] 14 U/L Critically low 15-37 [facility] Comment on above: Performed By: #### C MP #### [facility] [address] [address] [address] Susie Hale Bilirubin [Mass/Vol] 0.2 mg/dL Normal 0.2-1.0 [facility] Comment on above: Performed By: #### C MP #### [facility] [address] [address] [address] Susie Hale Calcium [Mass/Vol] 8.9 mg/dL Normal 8.5-10.1 [facility] Comment on above: Performed By: #### C MP #### [facility] [address] [address] [address] Susie Hale Chloride [Moles/Vol] 105 mmol/L Normal 98-107 [facility] Comment on above: Performed By: #### C MP #### [facility] [address] [address] [address] Susie Hale CO2 [Moles/Vol] 25.7 mmol/L Normal 21.0-32.0 [facility] Comment on above: Performed By: #### C MP #### [facility] [address] [address] [address] Susie Hale Creatinine [Mass/Vol] 1.87 mg/dL Critically high 0.70-1.30 [facility] Comment on above: Performed By: #### C MP #### [facility] [address] [address] [address] Susie Hale EGFR-AF UKRAINIAN 43 mL/min/1.73m2 Critically low >=60 [facility] Comment on above: Performed By: #### C MP #### [facility] [address] [address] [address] Susie Hale EGFR-NON AF UKRAINIAN 35 mL/min/1.73m2 Critically low >=60 [facility] Comment on above: Performed By: #### C MP #### [facility] [address] [address] [address] Susie Hale Globulin (S) [Mass/Vol] 3.2 g/dL Normal [facility] Comment on above: Performed By: #### C MP #### [facility] [address] [address] [address] Susie Hale Glucose [Mass/Vol] 256 mg/dL Critically high 74-106 [facility] Comment on above: Performed By: #### C MP #### [facility] [address] [place], [place] [address] Dr. Susie Hale Potassium [Moles/Vol] 3.7 mmol/L Normal 3.5-5.1 [facility] Comment on above: Performed By: #### C MP #### [facility] [address] [address] [address] Susie Hale Protein [Mass/Vol] 6.7 g/dL Normal 6.4-8.2 [facility] Comment on above: Performed By: #### C MP #### [facility] [address] [address] [address] Susie Hale Sodium [Moles/Vol] 137 mmol/L Normal 136-145 [facility] Comment on above: Performed By: #### C MP #### [facility] [address] [address] [address] Susie Hale Urea nitrogen [Mass/Vol] 22.0 mg/dL Critically high 7.0-18.0 [facility] Comment on above: Performed By: #### C MP #### [facility] [address] [address] [address] Susie Hale Urea nitrogen/Creatinin e [Mass ratio] 11.8 mg/mg Normal [facility] Comment on above: Performed By: #### C MP #### [facility] [id number] Susie Hale Office Visit (Cardiology)on 12-16-2021 [...] in adult Healthy Weight Tips; Status:Complete; Done: [id number] Some eating tips that can help you lose weight.; Status:Complete; Done: [id number] Essential hypertension Renew: Carvedilol 6.25 MG Oral Tablet; Take 1 tablet twice daily Hyperlipidemia Renew: Simvastatin 20 MG Oral Tablet; TAKE 0.5 TABLET Bedtime SocHx: Former smoker Tobacco Use Screening; Status:Complete; Done: [id number] Unlinked Stop: Aspirin 325 MG Oral Tablet [...] your visit. Device check as directed per [facility] protocol Follow up in 6-9 months [...] Screening.on 022 Adult depression screening assessment No [facility] DO Work Phone: Fall risk assessment a) No falls within the last year [facility] DO Work Phone: Tobacco use status CPHS b) No [facility] DO Work Phone: Tobacco Screening.on 021 Fall risk assessment a) No falls within the last year [facility] DO Work Phone: Tobacco use status CP b) No [facility] DO Work Phone: Vital Signs Date Time Vital Sign Value Performing Clinician Faci lity 03-01-2024 11:12-0500 Body height 177.8 cm Osvaldo Dickinson MD Work Phone: [facility] 03-01-2024 11:12-0500 Body mass index (BMI) [Ratio] 30.13 kg/m2 Osvaldo Dickinson MD Work Phone: [facility] 03-01-2024 11:12-0500 Body weight 95.25 kg Osvaldo Dickinson MD Work Phone: [facility] 03-01-2024 11:12-0500 Diastolic blood pressure 54 mm[Hg] Osvaldo Dickinson MD Work Phone: [facility] 03-01-2024 11:12-0500 Heart rate 71 /min Osvaldo Dickinson MD Work Phone: [facility] 03-01-2024 11:12-0500 Systolic blood pressure 114 mm[Hg] Osvaldo Dickinson MD Work Phone: [facility] 12-14-2023 13:17-0400 Diastolic blood pressure 70 mm[Hg] Dank Robert DO Work Phone: [facility] 12-14-2023 13:17-0400 Heart rate 68 /min Dank Robert DO Work Phone: [facility] 12-14-2023 13:17-0400 SaO2% (BldA) [Mass fraction] 97 % Dank Robert DO Work Phone: [facility] 12-14-2023 13:17-0400 Systolic blood pressure 152 mm[Hg] Dank Robert DO Work Phone: [facility] 08-25-2023 12:12-0400 Body height 177.8 cm Varghese Caal MD Work Phone: [facility] 08-25-2023 12:12-0400 Body mass index (BMI) [Ratio] 33.43 kg/m2 Varghese Caal MD Work Phone: [facility] 08-25-2023 12:12-0400 Body weight 105.69 kg Varghese Caal MD Work Phone: [facility] 08-25-2023 12:12-0400 Diastolic blood pressure 54 mm[Hg] Varghese Caal MD Work Phone: [facility] 08-25-2023 12:12-0400 Heart rate 60 /min Varghese Caal MD Work Phone: [facility] 08-25-2023 12:12-0400 Systolic blood pressure 126 mm[Hg] Varghese Caal MD Work Phone: [facility] 02-10-2023 11:37-0500 Body height 177.8 cm Varghese Caal MD Work Phone: [facility] 02-10-2023 11:37-0500 Body mass index (BMI) [Ratio] 32.28 kg/m2 Varghese Caal MD Work Phone: [facility] 02-10-2023 11:37-0500 Body weight 102.06 kg Varghese Caal MD Work Phone: [facility] 02-10-2023 11:37-0500 Diastolic blood pressure 58 mm[Hg] Varghese Caal MD Work Phone: [facility] 02-10-2023 11:37-0500 Heart rate 63 /min Varghese Caal MD Work Phone: [facility] 02-10-2023 11:37-0500 Systolic blood pressure 120 mm[Hg] Varghese Caal MD Work Phone: [facility] 07-01-2022 10:54-0400 Body height 177.8 cm Andrea Vasquezemmazulay Work Phone: [facility] DO Work Phone: 07-01-2022 10:54-0400 Body mass index (BMI) [Ratio] 32.71 kg/m2 Andrea Esipnoza Work Phone: [facility] DO Work Phone: 07-01-2022 10:54-0400 Body surface area Derived from formula 2.21 m2 Andrea Espinoza Work Phone: [facility] DO Work Phone: 07-01-2022 10:54-0400 Body weight 103.42 kg Andrea Espinoza Work Phone: [facility] DO Work Phone: 07-01-2022 10:54-0400 Diastolic blood pressure 64 mm[Hg] Andrea Patel Pedroemmazulay Work Phone: [facility] DO Work Phone: 07-01-2022 10:54-0400 Heart rate 72 /min Andrea Espinoza Work Phone: [facility] DO Work Phone: 07-01-2022 10:54-0400 Systolic blood pressure 118 mm[Hg] Andrea Espinoza Work Phone: [facility] DO Work Phone: 12-16-2021 11:08-0400 Body height 177.8 cm Andrea Espinoza Work Phone: [facility] 600 DO Work Phone: 12-16-2021 11:08-0400 Body mass index (BMI) [Ratio] 33.86 kg/m2 Andrea Espinoza Work Phone: [facility] 600 DO Work Phone: 12-16-2021 11:08-0400 Body surface area Derived from formula 2.24 m2 Andrea Amanda Espinoza Work Phone: [facility] 600 DO Work Phone: 12-16-2021 11:08-0400 Body weight 107.05 kg Andrea Espinoza Work Phone: [facility] DO Work Phone: 12-16-2021 11:08-0400 Diastolic blood pressure 64 mm[Hg] Andrea Amanda Espinoza Work Phone: [facility] DO Work Phone: 12-16-2021 11:08-0400 Heart rate 72 /min Andrea Espinoza Work Phone: [facility] 600 DO Work Phone: 12-16-2021 11:08-0400 Systolic blood pressure 132 mm[Hg] Andrea Amanda Espinoza Work Phone: [facility] 600 DO Work Phone: 01-22-2021 14:36-0400 Body height 177.8 cm Andrea Espinoza Work Phone: [facility] 250 DO Work Phone: 01-22-2021 14:36-0400 Body mass index (BMI) [Ratio] 34.01 kg/m2 Andrea Espinoza Work Phone: [facility] DO Work Phone: 01-22-2021 14:36-0400 Body surface area Derived from formula 2.24 m2 Andrea Espinoza Work Phone: [facility] 250 DO Work Phone: 01-22-2021 14:36-0400 Body weight 107.5 kg Andrea Espinoza Work Phone: [facility] 250 DO Work Phone: 01-22-2021 14:36-0400 Diastolic blood pressure 54 mm[Hg] Andrea Espinoza Work Phone: [facility] 250 DO Work Phone: 01-22-2021 14:36-0400 Heart rate 76 /min Andrea Espinoza Work Phone: [facility] 250 DO Work Phone: 01-22-2021 14:36-0400 Systolic blood pressure 104 mm[Hg] Andrea Espinoza Work Phone: [facility] 250 DO Work Phone: Encounters Encounter Date Encounter Type Care Provider Facility Start: 03-28-2024 End: 03-28-2024 ambulatory Benton Vasquez [facility] Work Phone: Start: 03-28-2024 End: 03-28-2024 Departed Referred Benton Vasquez DO [facility] Start: 03-24-2024 End: 03-24-2024 ambulatory Mica Car Facility:[facility] Start: 03-11-2024 End: 03-11-2024 ambulatory Benton Vasquez Facility:[facility] Start: 03-11-2024 End: 03-11-2024 Departed Referred Benton Vasquez DO [facility] Start: 03-02-2024 End: 03-02-2024 ambulatory NAPOLEON TA Facility:[facility] Start: 03-01-2024 End: 03-01-2024 Office outpatient visit 25 minutes Osvaldo Dickinson MD Work Phone: [facility] Comment on above: Paroxysmal atrial fi brillation (Multi) (Primary Dx); Sick sinus syndrome (Multi); Pacemaker; Essential hypertension; Cardiomyopathy, unspecified type (Multi); Mixed hyperlipidemia; Stage 4 chronic kidney disease (Multi); Non-smoker; BMI 30.0-30.9,adult Start: 03-01-2024 End: 03-01-2024 ambulatory [facility] Start: 02-19-2024 End: 02-19-2024 Emergency department patient visit LORI Vallejo ANGELINAFan [facility] Start: 02-18-2024 End: 02-18-2024 ambulatory Mica Car Facility:[facility] Start: 02-14-2024 End: 02-14-2024 ambulatory Mica Car Facility:[facility] Start: 01-31-2024 End: 01-31-2024 ambulatory Anna Sr Facility:[facility] Start: 01-24-2024 End: 01-24-2024 Emergency department patient visit BOBO BRENNER [facility] Start: 01-17-2024 End: 01-17-2024 Office outpatient visit 25 minutes Blanca Alonso MD Work Phone: [facility] Comment on above: Other atopic dermati tis (Primary Dx); Seborrheic keratosis; Lentigines; History of SCC (squamous cell carcinoma) of skin Start: 01-17-2024 End: 01-17-2024 ambulatory BLANCA ALONSO Not Available Start: 12-27-2023 End: 12-27-2023 ambulatory Mica Cra Facility:[facility] Start: 12-14-2023 End: 12-14-2023 Bamboo flowsheet Dank Jones DO Work Phone: [facility] Start: 12-14-2023 End: 12-14-2023 Bamboo flowsheet Dank Jones DO Work Phone: [facility] [place] [facility] Start: 12-14-2023 End: 12-14-2023 Office outpatient visit 25 minutes Dank Jones DO [facility] Phone: [facility] Comment on above: VIRGILIO (obstructive sle ep apnea) (Primary Dx); Hypersomnia; PLMD (periodic limb movement disorder); Obesity due to excess calories, unspecified classification, unspecified whether serious comorbidity present; Snoring Start: 12-14-2023 End: 12-14-2023 ambulatory DANK ROBERT Not Available Start: 12-09-2023 End: 12-09-2023 ambulatory Varghese Caal Facility:[facility] Start: 11-12-2023 End: 11-12-2023 ambulatory Mica Car Facility:[facility] Start: 10-14-2023 End: 10-14-2023 Emergency department patient visit Vini Quinteros Facility:[facility] Start: 10-14-2023 ambulatory Barb Loza Fa cility:[facility] Start: 08-31-2023 End: 08-31-2023 ambulatory BLANCA ALONSO Not Available Start: 08-25-2023 End: 08-25-2023 Office outpatient visit 25 minutes Varghese Caal MD Work Phone: [facility] Comment on above: Essential hypertensi on (Primary Dx); Sick sinus syndrome (Multi); Mixed hyperlipidemia; Paroxysmal atrial fibrillation (Multi); Dilated cardiomyopathy (Multi); Pacemaker; BMI 33.0-33.9,adult Start: 08-25-2023 End: 08-25-2023 ambulatory VARGHESE CAAL [facility] Start: 08-10-2023 End: 08-10-2023 ambulatory BLANCA A PETYURIYI Not Available Start: 06-16-2023 End: 06-16-2023 ambulatory NAPOLEON TA Facility:[facility] Start: 05-07-2023 End: 05-07-2023 ambulatory Mica VallejoAnisa Car Facility: [place] Start: 04-22-2023 End: 04-22-2023 ambulatory Varghese Caal Facility:[facility] Start: 03-19-2023 End: 03-19-2023 ambulatory BLANCA ALONSO Not Available Start: 03-05-2023 End: 03-05-2023 ambulatory BLANCA COSBYI Not Available Start: 02-10-2023 End: 02-10-2023 Office outpatient visit 25 minutes Varghese Caal MD Work Phone: [facility] Comment on above: Sick sinus syndrome (CMS/HCC) (Primary Dx); Mobitz type II atrioventricular block; Pacemaker; Essential hypertension; Dilated cardiomyopathy (CMS/HCC); Paroxysmal atrial fibrillation (CMS/HCC) Start: 10-22-[address] Andrea Espinoza Facility: Start: 07-01-2022 Office outpatient vi sit 25 minutes Andrea Espinoza Work Phone: [facility] 600 DO Work Phone: Start: 07-01-[address] Varghese Caal II Facility: Start: 05-28-2022 End: 05-28-[address] TRINO Lange Facility: Start: 05-14-2022 End: 05-15-2022 ambulatory MARIXA ROY Facility: Start: 04-23-[address] Andrea Espinoza Facility: Start: 12-31-2021 Rx Renewal Andrea Espinoza Work Phone: [facility] [place] 250 DO Work Phone: Start: 12-16-2021 Office outpatient vi sit 25 minutes Andrea Espinoza Work Phone: [facility] 600 DO Work Phone: Start: 12-16-[address] Varghese Caal II Facility: Start: 01-22-2021 Office outpatient vi sit 25 minutes Andrea Espinoza Work Phone: [facility] 250 DO Work Phone: Procedures Date [...] DTaP/Tdap/Td Vaccines (2 - Td or Tdap) [facility] Start: 01-25-2025 End: 01-25-2025 Patient encounter procedure 01/25/2025 1:05 PM EST Office Visit [facility] [address] [place] [address] Blanca Alonso MD [address] [place] [address] [facility] Start: 12-12-2024 End: 12-12-2024 Patient encounter procedure 12/12/2024 1:00 PM EDT Office Visit [facility] [place] [address] [place] [phone] Rox Cervantes NP [address] [place], [place] [facility] [place] [facility] Start: 11-28-2024 Glaucoma screening Diabetes: R etinopathy Screening [facility] Start: 11-07-2024 End: 11-07-2024 Patient encounter procedure 11/07/2024 10:30 AM EDT Office Visit [address] [place] [address] Osvaldo Dickinson MD [address] [facility] [place] [address] [facility] Start: 04-06-2024 ambulatory Ambulatory Facility:[facility] [place] Start: 03-28-2024 Urine culture [facility] Start: 03-28-2024 Bacteria identified in Urine by Culture Urine Culture [facility] Start: 03-01-2024 End: 03-01-2024 Patient encounter procedure 03/01/2024 11:00 AM EST Office Visit [address] [facility] [address] [place] [address] Osvaldo Dickinson MD [address] [facility] [address] [place] [address] [facility] Start: 01-17-2024 End: 01-17-2024 Patient encounter procedure 01/17/2024 3:15 PM EDT Office Visit [facility] [address] [place] [phone] Blanca Alonso MD [address] [place] [address] [facility] Start: 12-14-2023 End: 12-14-2023 Patient encounter procedure 12/14/2023 1:30 PM EDT Office Visit [facility] [place] [address] [place] [phone] Dank Jones DO [address] [place], [place] [id number] Arrived [facility] [place] [facility] Comment on above: Arrived Start: 12-01-2023 Glaucoma screening Diabetes: R etinopathy Screening [facility] Start: 08-25-2023 End: 08-25-2023 Patient encounter procedure 08/25/2023 11:40 AM EDT Office Visit [facility] [address] [place] [phone] Varghese Caal MD [address] [facility] [address] [place] [address] [facility] Start: 06-05-2023 COVID-19 Vaccine ( season) COVID-19 Vaccine () [facility] Start: 04-01-2023 COVID-19 Vaccine (6 - Moderna series) COVID-19 Vaccine (6 - Moderna series) [facility] Start: 02-10-2023 FUV, Provider: Varghese Caal, Status: Pen, Time: 11:30 AM FUV, Provider: Varghese Caal, Status: Pen, Time: 11:30 AM [facility] 600 DO Work Phone: Start: 07-01-2022 FUV, Provider: Varghese Caal, Status: Pen, Time: 10:40 AM FUV, Provider: Varghese Caal, Status: Pen, Time: 10:40 AM [facility] 600 DO Work Phone: Start: 09-10-2021 FUV, Provider: Varghese aCal, Status: Pen, Time: 2:30 PM FUV, Provider: Varghese Caal, Status: Pen, Time: 2:30 PM [facility] 250 DO Work Phone: Start: 2020 RSV High Risk: (Elde rly (60+) or Population) (1 - 1-dose 75+ series) RSV High Risk: (Elderly (60+) or Population) (1 - 1-dose 75+ series) [facility] Start: 05-09-2020 Echocardiography Echocardiogram [facility] Start: 2005 RSV patient s and/or patients aged 60+ years (1 - 1-dose 60+ series) RSV patients and/or patients aged 60+ years (1 - 1-dose 60+ series) [facility] Start: 11-26-1995 Zoster Vaccines (1 of 2) Zoste r Vaccines (1 of 2) [facility] Start: 1964 Urine screening for protein Diabetes: Urine Protein Screening [facility] Start: 11-26-1963 Hepatitis C screening Hepatitis C Sc reening [facility] Start: 11-26-1955 Diabetic foot examination Diabetes: Foot Exam [facility] Start: 11-26-1955 Glaucoma screening Diabetes: R etinopathy Screening [facility] Start: 1945 Creatinine measurement Creatinine Le sarah [facility] Start: 1945 Hemoglobin A1c measurement Jennifer betes: Hemoglobin A1C [facility] Start: 1945 Lipid panel Lipid Panel [facility] Start: 1945 Medicare Annual Well ness Visit Medicare Annual Wellness Visit (AWV) [facility] Start: 1945 Potassium measurement Potassium Leve l [facility] Immunizations Immunization Date Immunization Notes Care Provider Severo sneed 01-14-2022 Fluad Quadrivalent 0 .5 ML Intramuscular Prefilled Syringe Andrea Amanda Locassaemma Work Phone: [facility] 600 DO Work Phone: 01-14-2022 Pfizer COVID-19 Vac Bivalent 30 MCG/0.3ML Intramuscular Suspension Andrea Nutonian [facility] Work Phone: 09-03-2021 pneumococcal conjuga te vaccine, 13 valent Dank Jones DO Work Phone: [facility] 02-15-2021 Moderna COVID-19 Vac cine 100 MCG/0.5ML Intramuscular Suspension [employer] Work Phone: [facility] 600 DO Work Phone: 01-30-2021 influenza virus vacc ine, unspecified formulation Andrea Espinoza Work Phone: [facility] 600 DO Work Phone: 11-28-2020 influenza, high dose seasonal, preservative-free Andrea Vasquezrozulay Work Phone: [facility] 250 DO Work Phone: Comment on above: Series: 06-20-2020 Moderna COVID-19 Vac cine 100 MCG/0.5ML Intramuscular Suspension Andrea Espinoza Work Phone: [facility] 600 DO Work Phone: 05-20-2020 Moderna COVID-19 Vac cine 100 MCG/0.5ML Intramuscular Suspension Andrea Espinoza Work Phone: [facility] 250 DO Work Phone: Comment on above: Series: 04-25-2020 Moderna COVID-19 Vac cine 100 MCG/0.5ML Intramuscular Suspension Andrea Espinoza Work Phone: [facility] 250 DO Work Phone: Comment on above: Series: 12-21-2019 influenza virus vacc ine, unspecified formulation Andrea Espinoza Work Phone: [facility] 600 DO Work Phone: 12-20-2018 influenza, high dose seasonal, preservative-free Andrea Patel Bernarda Work Phone: [facility] 02-19-2018 influenza virus vacc ine, unspecified formulation Andrea Patel Bernarda Work Phone: [facility] 600 DO Work Phone: 02-19-2018 pneumococcal polysaccharide vaccine, 23 valent Andrea Patel Pedroemmazulay Work Phone: [facility] 250 DO Work Phone: Comment on above: Series: 02-19-2018 pneumococcal vaccine , unspecified formulation Andrea Espinoza Work Phone: [facility] 02-18-2017 Influenza, injectabl e, Madin [place] Canine Kidney, preservative free, quadrivalent Andrea Espinoza Work Phone: [facility] 600 DO Work Phone: 11-24-2016 influenza, high dose seasonal, preservative-free Andrea Espinoza Work Phone: [facility] 600 DO Work Phone: 12-21-2015 pneumococcal conjuga te vaccine, 13 valent Andrea Espinoza Work Phone: [facility] 250 DO Work Phone: Comment on above: Series: Payers Date Payer Category Payer Self-pay 2022 Medicare [id number] 2022 Department of [facility] e ( and others) [id number] 2022 () [id number]. [id number] 2022 For Life (TFL) F OR LIFE 1.2.840.503069.1.13.647. [id number] 2022 [employer] ( and others) [id number] 2010 Medicare [id number]. 1.13.647. [id number] 1959 [employer] ( and others) [id number] 1959 Medicare [id number] 1945 Unknown [id number] 2.16.840.1.710931.3.579. 2.593 1945 Unknown [id number] 2.16.840.1.918230.3.579. 2.593 1945 Unknown [id number] 2.16.840.1.917898.3.579. 2.356 1945 Unknown [id number] 2.16.840.1.021279.3.579. 2.356 1945 Unknown [id number] 2.16.840.1.479800.3.579. 2.356 1945 Unknown [id number] 2.16.840.1.731930.3.579. 2.356 1945 Unknown [id number] 2.16.840.1.583886.3.579. 2.727 1945 Unknown [id number] 2.16.840.1.243746.3.579. 2.727 1945 Unknown [id number] 2.16.840.1.899006.3.579. 2.727 1945 Unknown [id number] 2.16.840.1.943442.3.579. 2.727 1945 Unknown [id number] 2.16.840.1.467276.3.579. 2.727 1945 Unknown [id number] 2.16.840.1.294419.3.579. 2.727 1945 Unknown [id number] 2.16.840.1.607328.3.579. 2.727 1945 Unknown [id number] 2.16.840.1.334884.3.579. 2.727 1945 Unknown [id number] 2.16.840.1.820660.3.579. 2.1259 1945 Unknown [id number] 2.16.840.1.628657.3.579. 2.1259 1945 Unknown [id number] 2.16.840.1.533593.3.579. 2.1259 1945 Unknown [id number] 2.16.840.1.069803.3.579. 2.1259 1945 Unknown [id number] 2.16.840.1.996980.3.579. 2.1259 1945 Unknown [id number] 2.16.840.1.152834.3.579. 2.125 1945 Unknown [id number] 2.16.840.1.709320.3.579. 2.1286 1945 Unknown [id number] 2.16.840.1.670312.3.579. 2.1286 1945 Unknown [id number] 2.16.840.1.755432.3.579. 2.1244 1945 Unknown [id number] 2.16.840.1.187548.3.579. 2.1244 1945 Unknown [id number] 2.16.840.1.684077.3.579. 2.727 1945 Unknown [id number] 2.16.840.1.683798.3.579. 2.727 1945 Unknown [id number] 2.16.840.1.067361.3.579. 2.727 1945 Unknown [id number] 2.16.840.1.167393.3.579. 2.727 1945 Unknown [id number] 2.16.840.1.062553.3.579. 2.72 1945 Unknown [id number] 2.16.840.1.389204.3.579. 2.727 1945 Unknown [id number] 2.16.840.1.580877.3.579. 2.727 1945 Unknown [id number] 2.16.840.1.985396.3.579. 2.727 1945 Unknown [id number] 2.16.840.1.077982.3.579. 2.72 Unknown Unknown [id number] 2.16.840.1.906186.3.579. 2.531 Unknown [id number] 2.16.840.1.971795.3.579. 2.531 Social History Date Type Detail Facility Start: 02-10-2023 End: 12-14-2023 No illicit drug use No illicit drug use [facility] 250 DO Work Phone: Comment on above: quit , 1 PPD; Start: 02-10-2023 End: 08-25-2023 Tobacco smoking status NHIS Ex-smoker [facility] Work Phone: End: 03-22-1992 History of tobacco use Current smoker [facility] Work Phone: End: 03-22-1992 History of tobacco use Cigarette Smoker [facility] Work Phone: Start: 10-11-2022 End: 02-10-2023 Tobacco use and exposure Smokeless tobacco non-user [facility] Work Phone: Start: 02-10-2023 End: 12-14-2023 Alcohol intake Lifetime non-drinker (finding) [facility] Work Phone: Start: 02-10-2023 End: 12-14-2023 Tobacco use panel [facility] Work Phone: Start: 1945 Sex Assigned At Not on file U [facility] Work Phone: Start: 01-31-2023 End: 03-01-2024 Exposure to SARS-CoV-2 (event) Not sure [facility] Start: 10-11-2022 [facility] if ever smoked [facility] Work Phone: Start: 03-30-2024 Sex Patient sex un known (finding) [facility] Start: 1945 Sex Assigned At Male [facility] Clinical Notes 05-14-2022 to 03-02-2024 Osvaldo Dickinson [...] these instructions at home: Medicines ??? Take qhcv-zad-sduyzdu and prescription medicines only as told by [...] provider. Document Revised: 11/27/2020 Document Reviewed: 11/27/2020 [employer] Patient Education ? 2023 [employer]. [facility] 03-01-2024 History of Present illness Narrative Subjective [...] to retrieve his recent lab work from [facility] 5. I will see him back in [...] discussion and plan. documented in this encounter [facility] Work Phone: 03-01-2024 Instructions Betzaida Denney LPN [...] instructions on exercise. documented in this encounter [facility] Work Phone: 02-14-2024 Note Patient Education Rezum [...] to the c (more content not included)... [facility] 01-31-2024 Note Patient Education Urology Acute Urinary [...] these instructions at home: Medicines ??? Take tjok-nex-qpuvpok and prescription medicines only as told by [...] provider. Document Revised: 11/27/2020 Document Reviewed: 11/27/2020 [employer] Patient Education ? 2023 [employer] Benign Prostatic Hyperplasia Benign prostatic hyperplasia (BPH) is an enlarged prostate gland that is caused by the normal aging proc (more content not included)... 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 and he has [...] Visit: 1 year documented in this encounter [facility] 12-27-2023 Note Progress Note-Asaf tapia Patient: [...] day(s), # 6 tab(s), Refills(s) 0, Pharmacy: [facility] #[id number], 177, cm, 12/27/23 11:02:00 EDT, Height/Length Dosing, 104, kg, 12/27/23 11:02:00 EDT, Weight Dosing Louise 325 mg-5 mg oral tablet: 1 tab(s), Oral, q6hr for pain, 4 tab(s), Refill(s) 0, Take 1 tablet an hour before procedure, post procedure prn, [facility] #[id number], 177, cm, 12/27/23 11:02:00 EDT, Height/Length Dosing, 104, kg, 12/27/23 11:02:00 EDT, Weight Dosing sildenafil 100 mg Tab: 100 mg = 1 tab(s), Oral, As Directed, PRN for erectile dysfunction, Take one tab 1 hour prior to sexual activity., # 30 tab(s), Refills(s) 3, Pharmacy: [facility] #[id number], 177.8, cm, 06/16/23 10:18:00 EDT, Height/Length Dosing, 104.8, kg, 06/16/23 10:18:... terazosin 10 mg Cap: 10 mg = 1 cap(s), Oral, Once a day (at bedtime), # 90 cap(s), Refills(s) 3, Pharmacy: [facility], 177, cm, 12/27/23 11:02:00 EDT, Height/Length Dosing, 104, kg, 12/27/23 11:02:00 EDT, Weight Dosing traMADOL 50 mg Tab: 50 mg = 1 tab(s), Oral, q6hr, Take as needed for pain., # 6 tab(s), Refills(s) 0, Pharmacy: [facility] #[id number], 177.8, cm, 11/12/23 15:35:00 EDT, Height/Length Dosing, [...] Plan: Diagnosis: Prostate hyperplasia with urinary obstruction ([id number] N40.1, Discharge, Medical), Feeling of incomplete bladder emptying ([id number] R39.14, Working, Medical), Anticoagulated ([id number] Z79.01, Discharge, Medical). 78 yo male here [...] and Valium prior to procedure. 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 The procedural risks, benefits, details, and treatment alternatives have been discussed with the patient. These include bleeding, infection, continued problems urinating, increased frequency with urgency during the healing process, painful urination, need for indwelling cathete (more content not included)... [facility] Comment on above: Result Comment: Elec tronically [...] you have a fever over 100 degrees. [facility] 12-14-2023 History of Present illness Narrative Images [...] Actinic keratosis COPD (chronic obstructive pulmonary disease) ([facility]) Coronary heart disease ([facility]) Diabetes mellitus, type 2 ([facility]) HTN (hypertension) ([facility]) Hx of psoriasis Kidney disease FL (myocardial infarction) ([facility]) VIRGILIO (obstructive sleep apnea) Pacemaker Squamous cell [...] was counselled on the risk of stroke, FL, and sudden with VIRGILIO, along with the [...] Return to clinic: documented in this encounter [facility] 11-12-2023 Note Patient Education Urology Benign [...] Follow these instructions at home: ? Take fbra-lha-ondaidn and prescription medicines only as told by [...] develop side effec (more content not included)... [facility] 10-14-2023 Note ED Patient Education Note Orthopedics [...] under your knee. General instructions ? Take vhfa-per-wbszrcy and prescription medicines only as told by [...] provider. Document Revised: 08/21/2020 Document Reviewed: 08/21/2020 [employer] Patient Education ? 2022 [employer]. [facility] 08-25-2023 History of Present illness Narrative Subjective [...] discussion and plan. documented in this encounter [facility] Work Phone: 08-25-2023 Instructions Jo Ann Ferrer [...] of your visit. documented in this encounter [facility] Work Phone: 02-10-2023 History of Present illness [...] recent pacemaker checks. documented in this encounter [facility] Work Phone: 02-10-2023 Instructions Alize James LPN [...] up per routine documented in this encounter [facility] Work Phone: 05-14-2022 Note PROCEDURE: XR KNEE [...] by: JOE DU Date: 2022-05-14 18:40 [facility] Evaluation note Diagnosis Sick sinus syndrome (CMS/HCC)- Primary Sinoatrial node dysfunction Mobitz type II atrioventricular block Mobitz (type) II atrioventricular block Pacemaker Cardiac pacemaker in situ Essential hypertension Unspecified essential hypertension Dilated cardiomyopathy (CMS/HCC) Other primary cardiomyopathies Paroxysmal atrial fibrillation (CMS/HCC) Atrial fibrillation documented in this encounter [facility] Work Phone: Evaluation note* Diagnosis Essential hypertension- Primary Unspecified essential hypertension Sick sinus syndrome (Multi) Sinoatrial node dysfunction Mixed hyperlipidemia Paroxysmal atrial fibrillation (Multi) Atrial fibrillation Dilated cardiomyopathy (Multi) Other primary cardiomyopathies Pacemaker Cardiac pacemaker in situ BMI 33.0-33.9,adult documented in this encounter [facility] Work Phone: Evaluation note* Diagnosis Other atopic [...] Non-smoker BMI 30.0-30.9,adult documented in this encounter [facility] Work Phone: Evaluation note* Diagnosis VIRGILIO (obstructive sleep apnea)- Primary Obstructive sleep apnea (adult) (pediatric) Hypersomnia Hypersomnia, unspecified PLMD (periodic limb movement disorder) Periodic limb movement disorder Obesity due to excess calories, unspecified classification, unspecified whether serious comorbidity present Snoring Other dyspnea and respiratory abnormality documented in this encounter [facility] noteNo assessment information availableGrand [facility] Work Phone: History of Present illness [...] on the basis of his improve lifestyle modification.[facility] 250 DO Work Phone: History of Present [...] the merits of diet and weight loss. 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 -[facility] 600 DO Work Phone: Reason for referral (narrative)* Consultation (Routine) - Authorized Specialty Diagnoses / Procedures Referred By Contac t Referred To Contact Cardiology Diagnoses Sick sinus syndrome (CMS/HCC) Procedures Follow Up In Cardiology Varghese Caal MD [address] [place] [address], [place] [address] Varghese Caal MD [address] [place] [address], [place] [id number] Referral ID Status Reason Start Date Expiration Date V isits Requested Visits Authorized [id number] Authorized 02/10/2023 02/10/2024 1 1 [facility] Work Phone: Relncf for referral (narrative)* Consultation (Routine) - Authorized Specialty Diagnoses / Procedures Referred By Contac t Referred To Contact Cardiology Diagnoses Sick sinus syndrome (Multi) Procedures Follow Up In Cardiology Varghese Caal MD [address] [place] [address] 2, [address] [address] Osvaldo Dickinson MD [address] [place] [address] 2, [address] [address] Referral ID Status Reason Start Date Expiration Date V isits Requested Visits Authorized [id number] Authorized 08/25/2023 08/24/2024 1 1 [facility] Work Phone: Chief Complaint LEIGHTON ARCINIEGA is [...] DATE CREATED AUTHOR AUTHOR'S ORGANIZ ATION 07/03/2022 [facility] DATE CREATED AUTHOR AUTHOR'S ORGANIZ ATION 11/05/2022 [facility] ical Center DATE CREATED AUTHOR AUTHOR'S ORGANIZ ATION 11/14/2023 [facility] ical Center DATE CREATED AUTHOR AUTHOR'S ORGANIZ ATION 01/18/2024 [facility] dical [facility] DATE CREATED AUTHOR AUTHOR'S ORGANIZ ATION 02/21/2024 [facility] DATE CREATED AUTHOR AUTHOR'S ORGANIZ ATION 03/04/2024 [facility] DATE CREATED AUTHOR AUTHOR'S ORGANIZ ATION 03/31/2024 [facility] DATE CREATED AUTHOR AUTHOR'S ORGANIZ ATION 04/02/2024 [facility] DATE CREATED AUTHOR AUTHOR'S ORGANIZ ATION 04/04/2024 [facility] Reason for Visit (unrecogniz ed section and content) Reason Comments Follow-up 6-9mo Reason Comments Follow-up 6-9 months Specialty Diagnoses / Procedures Referred By Contac t Referred To Contact Cardiology Diagnoses Sick sinus syndrome (Multi) Procedures Follow Up In Cardiology Varghese Caal MD [address] [place] [address], [address] [address] Varghese Caal MD [address] [place] [address], [address] [address] Referral ID Status Reason Start Date Expiration Date V isits Requested Visits Authorized [id number] Authorized 02/10/2023 02/10/2024 1 1 Reason Comments Skin Check Follow-up Reason Comments Follow-up 6-9 months Specialty Diagnoses / Procedures Referred By Contac t Referred To Contact Cardiology Diagnoses Sick sinus syndrome (Multi) Procedures Follow Up In Cardiology [facility] Osvaldo [address] [place] [address], [address] [address] Phone: tel: fax: Referral ID Status Reason Start Date Expiration Date V isits Requested Visits Authorized [id number] Authorized 08/25/2023 08/24/2024 1 1 Reason Comments Sleep Apnea Care Teams (unrecognized sec tion and content) Monotype Operator Relationship Specialty Start Date End Date Andrea Espinoza DO [address] [place] [address] PCP - General 03/22/99 Monotype Operator Relationship Specialty Start Date End Date Andrea Espinoza DO [address] [place] [address] PCP - General 03/22/99 Monotype Operator Relationship Specialty Start Date End Date Lori Medina MD [address] [place] [address] PCP - General Family Medicine 10/09/22 Monotype Operator Relationship Specialty Start Date End Date Andrea Espinoza DO [address] [place] [address] PCP - General 03/22/99 Monotype Operator Relationship Specialty Start Date End Date Lori Medina MD [address] [place] [address] PCP - General Family Medicine 10/09/22 Monotype Operator Relationship Specialty Start Date End Date Lori Medina MD [address] [place] [address] PCP - General Family Medicine 10/09/22 Team [...] BE BASED ON THE PRIMARY CLINICAL RECORDS. [facility]. provides no warranty or guarantee of the accuracy or completeness of information in this document.
[2024-04-06] VITALS (22 sets, daily range): BP systolic 96–153; BP diastolic 55–78; PULSE 62–95; TEMP 36.4–36.9; O2SAT 93–96
[2024-04-06] MEDS: VANCOMYCIN HCL 1,250 MG in 0.9 % SODIUM CHLORIDE 250 ML 166.667 MG IV (00:44)
[2024-04-06] MEDS: APIXABAN 5 MG TABLET PO ×2 (01:31→12:36)
[2024-04-06] MEDS: CARVEDILOL 6.25 MG TABLET PO ×2 (01:31→12:36)
[2024-04-06] MEDS: TERAZOSIN HCL 5 MG CAPSULE 10 MG PO ×2 (01:32→21:50)
[2024-04-06] MEDS: HYDRALAZINE HCL 50 MG TABLET 100 MG PO ×3 (01:32→17:15)
[2024-04-06] MEDS: PIPERACILLIN SODIUM/TAZOBACTAM 3.375 GM in 0.9 % SODIUM CHLORIDE 50 ML IV ×3 (05:11→21:51)
[2024-04-06] MEDS: HYOSCYAMINE SULFATE 0.125 MG TAB.SUBL SL ×3 (05:13→21:51)
[2024-04-06 05:44] LABS: Hematocrit 33.3 % (42.0-54.0); Hemoglobin 11.2 g/dL (14.0-18.0); Mean Corpuscular HGB Conc 33.6 g/dL (29.9-35.2); Mean Corpuscular Hemoglobin 32.6 pg (25.9-34.0); Mean Corpuscular Volume 96.8 fL (80.0-94.0); Mean Platelet Volume 8.4 fL (9.5-13.5); Platelet Count 224 10^3/uL (150-450); Red Blood Count 3.44 10^6/uL (4.70-6.10); Red Cell Distribution Width 13.9 % (11.0-15.0)
[2024-04-06 06:11] LABS: Alanine Aminotransferase 18 U/L (16-63); Albumin Globulin Ratio 0.7; Albumin Level 2.6 g/dL (3.4-5.0); Alkaline Phosphatase 71 U/L (46-116); Anion Gap 14.6; Aspartate Amino Transferase 15 U/L (15-37); BUN Creatinine Ratio 20.3; Bilirubin Total 0.5 mg/dL (0.2-1.0); Calcium 8.9 mg/dL (8.5-10.1); Carbon Dioxide 23.5 mmol/L (21.0-32.0); Chloride 103 mmol/L (98-107); Estimated GFR (African America 43 (>=60 mL/min/1.73m^2); Estimated GFR (Non-African Ame 35 (>=60 mL/min/1.73m^2); Globulin 3.5 g/dL; Glucose 233 mg/dL (74-106); Magnesium 1.5 mg/dL (1.8-2.4); Potassium 4.1 mmol/L (3.5-5.1); Sodium 137 mmol/L (136-145); Total Protein 6.1 g/dL (6.4-8.2)
[2024-04-06 06:40] LABS: Lymphocytes Absolute Manual 0.11 10^3/uL (1.20-3.80); Monocytes Absolute Manual 0.33 10^3/uL (0.30-0.80); Segmented Neut Absolute Manual 10.56 10^3/uL (1.4-6.5)
[2024-04-06 07:25] LABS: Troponin I High Sensitivity 37.2 pg/mL (4.0-76.1)
--- NOTE | 2024-04-06 07:36 | CA_ITS ---
Patient Name: LEIGHTON ARCINIEGA MR#: [id number] : 1945 Exam Date: 04/06/2024 Ordering Doctor: DR Jayy Dutta . ECHOCARDIOGRAM REPORT PROCEDURE: CA ECHO DOPPLER COMPLETE INDICATIONS: chf, pacemaker, elevated BNP, hypertension, diabetes, h/o OR COMPARISON: None. DESCRIPTION: COMPLETE ECHOCARDIOGRAM Real-time transthoracic echocardiography with 2D, M-mode, spectral and color flow Doppler performed. QUALITY: Technical quality was good. LEFT VENTRICLE: Normal chamber size. Thickened septal wall. Abnormal septal motion likely due to pacing. Systolic function is at the lower limits of normal. LV EF: Lower limits of normal left ventricular ejection fraction, (50%). DIASTOLIC: Grade II diastolic dysfunction. ATRIAL SEPTUM: LEFT ATRIUM: Mild dilatation. RIGHT ATRIUM: Mild dilatation. RIGHT VENTRICLE: Normal chamber size. Normal systolic function. Pacer wire present. TRICUSPID VALVE: Normal mobility and thickness. No stenosis with trivial regurgitation. Doppler studies reveal moderately (45-60) elevated right sided pressures. RVSP 48 mmHg MITRAL VALVE: Normal mobility and thickness. No evidence of mitral valve stenosis. There is no mitral annular calcification. Mild mitral regurgitation. AORTIC VALVE: Normal trileaflet appearance. Mildly calcified aortic valve. Normal leaflet mobility. No evidence of aortic valve stenosis. No aortic regurgitation. AORTIC ROOT: Normal diameter and appearance. Ascending aorta is normal in size. PULMONIC VALVE: Normal thickness and mobility. No stenosis. No regurgitation. PERICARDIUM: No evidence of pericardial effusion. IVC: IVC is dilated (2.6 cm), does not fully collapse. PLEURA: CONCLUSION: 1. Left ventricular systolic function is at the lower limits of normal. LVEF is estimated at 50%. 2. Normal right ventricular size and systolic function. 3. Grade II diastolic dysfunction. 4. Mild mitral regurgitation. 5. Moderately elevated right sided pressures. Adult Echocardiography Procedure Report Left Ventricle LVEDD (3.7 - 5.6 cm): 5.66 cm LVESD (2.2 - 4.0 cm): 4.73 cm LVIVS thickness (0.6 - 1.2 cm): 1.38 cm LVPW thickness (0.5 - 1.0 cm): 1.00 cm e': 0.07 m/s E - e': 10.85 LVOT Max Gradient: 3.59 mm[Hg], 1.68 mm[Hg], 3.99 mm[Hg] LVOT Area (cm2): 0.86 m/s Peak Velocity (LVOT): 0.95 m/s, 0.65 m/s, 1.00 m/s LVOT Diameter 2.31 cm Left Atrium LA Volume Index (2D A2C): 38.10 ml/m2 Left Atrium Systolic Dimension: 4.22 cm Mitral Valve MV E to A Ratio: 0.78 Mitral Valve A-Wave Peak Velocity: 0.92 m/s Mitral Valve E-Wave Peak Velocity: 0.72 m/s Right Ventricle Aorta AO Root Diam: 3.39 cm Ascending Ao Diam: 3.23 cm Aortic Valve AoV Area (Peak Ajay): 2.44 cm2, 2.43 cm2, 1.59 cm2, 3.78 cm2 Peak Velocity(Antegrade Flow): 1.63 m/s, 1.71 m/s, 1.11 m/s Peak Gradient(Antegrade Flow): 10.67 mm[Hg], 11.67 mm[Hg], 4.90 mm[Hg] Tricuspid Valve Peak Velocity (Regurgitant Flow): 2.86 m/s, 2.86 m/s Pulmonic Valve Mean Gradient: 2.77 mm[Hg] Mean Velocity: 0.77 m/s Peak Velocity: 1.16 m/s, 1.07 m/s Peak Gradient: 4.61 mm[Hg], 5.37 mm[Hg] Right Atrium Right Atrium Systolic Pressure: 70.19 ml, 70.19 ml Dictated by: John Armstrong M.D. on 04/08/2024 at 13:30 Approved by: John Armstrong M.D. on 04/08/2024 at 13:37
--- NOTE | 2024-04-06 07:37 | P.HP_ITS ---
HPI H&P: HPI History of Present Illness Chief complaint: HAP CHF EXACERBATION HYPOXIA COPD EXACERBATION Narrative: Patient with a recent hospitalization for urinary tract infection, presented to the emergency room with increasing cough and shortness of breath with sputum production on the cough, in ER found to have bilateral pneumonia and acute combined congestive heart failure and significant leukocytosis I saw patient up in the medical surgical floor, resting fairly comfortably in bed occasional cough, Opioid HPI Opioid Management Most Recent Pain and Opioid Data: Last Pain Scale 0 03/30/24 10:42 03/30/24 Last Pain Assessment 04/06/24 06:00 Last ORT Total Score 6 04/05/24 22:51 04/05/24 Last ORT Risk Category Moderate Risk 04/05/24 22:51 04/05/24 Review of Systems ROS Status of ROS 10 or more systems reviewed and unremark able except as noted in history and below [facility] Medical History (Updated 04/05/24 @ 21:55 by Vini Quinteros MD) Acute kidney injury ?N17.9 - Acute kidney failure, unspecified (ICD-10) Bladder spasm ?N32.89 - Other specified disorders of bladder (ICD-10) Urinary tract infection ?N39.0 - Urinary tract infection, site not specified (ICD-10) Urinary tract infection ?N39.0 - Urinary tract infection, site not specified (ICD-10) Failure of outpatient treatment ?Z78.9 - Other specified health status (ICD-10) Urinary tract infection ?N39.0 - Urinary tract infection, site not specified (ICD-10) Skin cancer ?C44.90 - Unspecified malignant neoplasm of skin, unspecified (ICD-10) Myocardial infarction ?I21.9 - Acute myocardial infarction, unspecified (ICD-10) Pacemaker ?Z95.0 - Presence of cardiac pacemaker (ICD-10) CKD (chronic kidney disease) ?N18.9 - Chronic kidney disease, unspecified (ICD-10) CAD (coronary artery disease) ?I25.10 - Atherosclerotic heart disease of [place] coronary artery without angina pectoris (ICD-10) A-fib ?I48.91 - Unspecified atrial fibrillation (ICD-10) Erectile dysfunction ?N52.9 - Male erectile dysfunction, unspecified (ICD-10) UTI (urinary tract infection) ?N39.0 - Urinary tract infection, site not specified (ICD-10) GERD (gastroesophageal reflux disease) ?K21.9 - Gastro-esophageal reflux disease without esophagitis (ICD-10) Hypertension ?I10 - Essential (primary) hypertension (ICD-10) Diabetes ?E11.9 - Type 2 diabetes mellitus without complications (ICD-10) Surgical History History of arthroscopic knee surgery ?Z98.890 - Other specified postprocedural states (ICD-10) Hx of tonsillectomy ?Z90.89 - Acquired absence of other organs (ICD-10) Family History Mother Family history of CHF (congestive heart failure) Family history of myocardial infarction Family history of hypertension Family history of diabetes mellitus Family history of COPD (chronic obstructive pulmonary disease) Grandmother Family history of CHF (congestive heart failure) Brother Family history of CHF (congestive heart failure) Family history of myocardial infarction Family history of hypertension Family history of COPD (chronic obstructive pulmonary disease) Father Kidney failure Social History Within the past year, how often did you have a drink containing alcohol: never Score interpretation: A score less than 4 is consistent with normal alcohol consumption. Smoking status: Former smoker Non-prescribed substance use: denies use Known occupational exposures/hazards: No Highest level of school completed/degree received: some college, no degree Do you want help with school or training: No Little interest or pleasure in doing things: not at all Feeling down, depressed, or hopeless: not at all Gender Identity: male Meds Home Medications and Allergies Home Medications ?Medication ?Instructions ?Recorded ?Confirmed ?Type acetaminophen 500 mg capsule 1,000 mg PO Q6H PRN fever or pain 02/26/24 04/05/24 History allopurinol 300 mg tablet 300 mg PO DAILY 02/26/24 04/05/24 History amlodipine 10 mg tablet 10 mg PO DAILY 02/26/24 04/05/24 History apixaban 5 mg tablet (Eliquis) 5 mg PO Q12H 02/26/24 04/05/24 History aspirin 81 mg tablet,delayed 81 mg PO .weekly 02/26/24 04/05/24 History release (Adult Aspirin Regimen) calcium 315 mg (as 1 tab PO DAILY 02/26/24 04/05/24 History citrate)-vitamin D3 5 mcg (200 unit) tablet (Calcium Citrate + D) carvedilol 6.25 mg tablet 6.25 mg PO Q12H 02/26/24 04/05/24 History cyanocobalamin (vitamin B-12) 1,000 mcg PO DAILY 02/26/24 04/05/24 History 1,000 mcg tablet (Vitamin B-12) ferrous sulfate 325 mg (65 mg 325 mg PO DAILY 02/26/24 04/05/24 History iron) tablet (iron) furosemide 20 mg tablet 20 mg PO Q12H 02/26/24 04/06/24 History glipizide 10 mg tablet 10 mg PO BID 02/26/24 04/05/24 History hydralazine 50 mg tablet 100 mg PO Q8H 02/26/24 04/05/24 History insulin glargine 100 unit/mL (3 26 unit subcut BID 02/26/24 04/06/24 History mL) subcutaneous pen multivitamin (Daily Multi-Vitamin 1 tab PO DAILY 02/26/24 04/05/24 History tablet) omeprazole 20 mg capsule,delayed 20 mg PO DAILY 02/26/24 04/05/24 History release semaglutide 1 mg/dose (4 mg/3 mL) 1 mg subcut QWEEK 02/26/24 04/05/24 History subcutaneous pen injector (Ozempic) sildenafil 100 mg tablet 100 mg PO Q24H PRN sexual activity 02/26/24 03/28/24 History simvastatin 20 mg tablet 20 mg PO DAILY 02/26/24 04/06/24 History spironolactone 25 mg tablet 25 mg PO DAILY 02/26/24 04/05/24 History tacrolimus 0.1 % topical ointment 1 applic topical Q12H PRN skin 02/26/24 03/28/24 History irritation terazosin 10 mg capsule 10 mg PO BEDTIME 02/26/24 04/06/24 History cefdinir 300 mg capsule 600 mg (2 x 300 mg) PO DAILY #30 03/30/24 04/05/24 Rx caps fluconazole 200 mg tablet 400 mg (2 x 200 mg) PO DAILY 30 03/30/24 04/06/24 Rx (Diflucan) days #60 tabs hyoscyamine sulfate 0.125 mg 0.125 mg sublingual QID #40 tabs 03/30/24 04/05/24 Rx sublingual tablet mirabegron 25 mg tablet,extended 25 mg PO DAILY #30 tabs 03/30/24 Rx release 24 hr (Myrbetriq) diclofenac sodium 1 % topical gel 2 g topical BID 04/05/24 04/05/24 History ruxolitinib 1.5 % topical cream 1 applic topical BID PRN dermatitis 04/05/24 04/06/24 History (Opzelura) tolterodine 2 mg capsule,extended mg PO 04/05/24 History release 24 hr fluconazole 100 mg tablet 200 mg PO BID 04/06/24 04/06/24 History Allergies Allergy/AdvReac Type Severity Reaction Status Date / Time fosinopril (From Monopril) Allergy Severe shortness Verified 04/05/24 20:09 of breath metoprolol Allergy Severe shortness Verified 04/05/24 20:09 of breath strawberry Allergy Severe Rash Verified 04/05/24 20:09 Exam Constitutional Vital Signs, click to edit/add: Last Vital Signs Temp 98.3 F 04/06/24 03:47 Pulse 88 04/06/24 05:59 Resp 18 04/06/24 03:47 BP 143/78 H 04/06/24 03:47 Pulse Ox 94 L 04/06/24 05:40 O2 Del Method Nasal Cannula 04/06/24 05:40 O2 Flow Rate 2 04/06/24 05:40 Documenting provider has reviewed patient's vital signs: yes Common normals: apparent distress (Cough during the evaluation) Chest Common normals: inspection of chest normal Respiratory Common normals: no retractions and no use of accessory muscles; abnormal respiratory effort (Significant cough) Auscultation: rales, rhonchi and egophony left lower Cardio Common normals: regular rate and regular rhythm GI Common normals: Normal to inspection, nondistended, normoactive bowel sounds present, soft to palpation and non-tender Extremity Common normals: abnormal to inspection (1+ edema) Results Labs Labs: Short CBC 04/05/24 04/06/24 Range/Units 20:25 05:07 WBC 16.2 H 11.0 (4.0-11.0) 10^3/uL Hgb 12.5 L 11.2 L (14.0-18.0) g/dL Hct 37.9 L 33.3 L (42.0-54.0) % Plt Count 282 224 (150-450) 10^3/uL BMP 04/05/24 04/06/24 20:25 05:07 Sodium 135 L 137 Potassium 4.6 4.1 Chloride 102 103 Carbon Dioxide 22.5 23.5 BUN 34.0 H 38.0 H Creatinine 1.83 H 1.87 H Glucose 98 233 H Calcium 9.4 8.9 Liver Function 04/06/24 Range/Units 05:07 Total Bilirubin 0.5 (0.2-1.0) mg/dL AST 15 (15-37) U/L ALT 18 (16-63) U/L Alkaline Phosphatase 71 (46-116) U/L Albumin 2.6 L (3.4-5.0) g/dL Urine 04/05/24 Range/Units 20:25 Urine Color Lt. yellow (YELLOW) Urine Clarity Clear (CLEAR) Urine pH 6.0 (5.0-9.0) Ur Specific [place] 1.010 (1.005-1.025) Urine Protein 100 A (NEG/TRACE) mg/dL Urine Glucose (UA) Negative (NEGATIVE) mg/dL Assessment and Plan Assessment and Plan (1) COPD exacerbation: (2) Acute exacerbation of chronic heart failure: (3) Acute hypoxemic respiratory failure: (4) Pneumonia: (5) Urinary tract infection: (6) CKD (chronic kidney disease): (7) CAD (coronary artery disease): (8) A-fib: (9) GERD (gastroesophageal reflux disease): (10) Hypertension: (11) Diabetes: Plan Admission findings: Sinus tachycardia, respiratory distress, uncontrolled hypertension, acute hypoxia with O2 sat of 92% on 2 L, leukocytosis with left shift consistent with bacterial infection, elevated BNP consistent with acute bilateral pneumonia causing acute combined congestive heart failure leading to sepsis (tachycardia, respiratory distress, leukocytosis, known infectious source of lungs) Sepsis due to bilateral pneumonia-likely healthcare acquired pneumonia with recent hospitalization, Zosyn, will hold off on vancomycin secondary to chronic kidney disease stage III, linezolid for MRSA, aerosols, inhaled steroids, holding off on IV steroids secondary to diabetes Acute combined congestive heart failure-check echocardiogram, Bumex drip today, Acute UTI-will check on culture, is been struggling to treat a fungal infection in his bladder, maintain current antifungal medications, antibiotics for pneumonia above should cover any bacterial urinary tract infection Iron deficiency anemia-monitor daily Hyponatremia on admission-resolved this morning Chronic kidney disease stage III-stable this morning NIDDM-insulin sliding scale Hypomagnesemia-supplement Bladder outlet obstruction secondary to BPH-Gomez catheter placed last night Coronary artery disease-no chest pain, repeated high-sensitivity troponin this morning Uncontrolled hypertension on admission-adjust medications as necessary, improved this morning Atrial fibrillation-rate controlled-maintain Eliquis Irritable bowel-maintain Levsin GERD-continue with home medications Admission status: Patient admitted with sepsis due to healthcare acquired pneumonia resulting in acute combined congestive heart failure, medically necessary treatment will span 2 midnights. Inpatient status Urinary Catheter Management Urinary Catheter Management 2-way Urethral: Cath placed during this visit: yes Urethral indwelling: Yes Reason for continuing: acute urinary retention Insertion date: 04/05/24 Insertion time: 22:10
[2024-04-06] MEDS: INSULIN ASPART 300 UNIT/3 ML PEN SUBQ ×4 (08:40→21:53)
[2024-04-06] MEDS: INSULIN GLARGINE 300 UNIT/3 ML INSULN.PEN 26 UNIT SQ ×2 (08:40→21:52)
[2024-04-06] MEDS: LINEZOLID IN DEXTROSE 5% 600 MG/300 ML PIGGYBACK 300 MG IV (08:41)
[2024-04-06] MEDS: FLUCONAZOLE 100 MG TABLET 400 MG PO (08:42)
[2024-04-06] MEDS: AMLODIPINE BESYLATE 5 MG TABLET 10 MG PO (08:42)
[2024-04-06] MEDS: ALLOPURINOL 300 MG TABLET PO (08:42)
[2024-04-06] MEDS: FERROUS SULFATE 325 MG TABLET PO (08:42)
[2024-04-06] MEDS: ATORVASTATIN CALCIUM 10 MG TABLET PO (08:42)
[2024-04-06] MEDS: SPIRONOLACTONE 25 MG TABLET PO (08:43)
[2024-04-06] MEDS: GUAIFENESIN 200 MG/DEXTROMETHORPHAN 20 MG 10 ML UNIT DOSE CUP PO (08:43)
[2024-04-06] MEDS: BENZONATATE 100 MG CAPSULE 200 MG PO (08:43)
[2024-04-06] MEDS: MAGNESIUM OXIDE 400 MG TABLET PO ×2 (08:43→21:51)
[2024-04-06] MEDS: BUMETANIDE 10 MG in 0.9 % SODIUM CHLORIDE 160 ML 20 MG IV (08:43)
[2024-04-06] MEDS: GLIPIZIDE 10 MG TABLET PO ×2 (08:43→21:51)
[2024-04-06] MEDS: ENSURE HP 237 ML LIQUID PO ×2 (10:04→21:51)
[2024-04-06] MEDS: BUDESONIDE 0.5 MG/2 ML AMPULE NEB IH ×2 (10:10→20:48)
[2024-04-06] MEDS: IPRATROPIUM/ALBUTEROL SULFATE 3 ML AMPUL.NEB IH ×3 (10:10→20:48)
--- NOTE | 2024-04-06 11:46 | SWNOTE1 ---
Important Message from Medicare reviewed and discussed with patient. Pt. verbalized understanding and signed the form. Original given to patient and copy placed in patient?s chart.
--- NOTE | 2024-04-06 11:46 | SWNOTE1 ---
DARRIUS did ask pt if he would like [place] or [place] for his hospital stay, he voiced Medicare. DARRIUS notified case management.
--- NOTE | 2024-04-06 11:49 | SWNOTE1 ---
SW met with pt to discuss dc needs. Pt lives at home with who has Dementia. Pt does not use any DME at home. Pt does not wear home oxygen. Pt is independent and voiced no discharge needs or concerns at this time. SW to follow as needed.
--- NOTE | 2024-04-06 13:24 | SWNOTE1 ---
SW reviewed therapy notes and no needs identified.
[2024-04-06] MEDS: DOCUSATE SODIUM 100 MG CAPSULE PO (17:15)
[2024-04-06] MEDS: LINEZOLID IN DEXTROSE 5% 600 MG/300 ML PIGGYBACK 200 MG IV (21:51)
[2024-04-07] VITALS (20 sets, daily range): BP systolic 116–145; BP diastolic 51–75; PULSE 70–100; TEMP 36.4–36.8; O2SAT 90–97
[2024-04-07] MEDS: PIPERACILLIN SODIUM/TAZOBACTAM 3.375 GM in 0.9 % SODIUM CHLORIDE 50 ML IV ×3 (04:43→22:03)
[2024-04-07 05:00] LABS: Basophils Percent Auto 0.1 % (0.2-2.0); Hematocrit 30.2 % (42.0-54.0); Hemoglobin 10.1 g/dL (14.0-18.0); Immature Granulocytes Abs Auto 0.08 10^3/uL (0.00-0.03); Immature Granulocytes Pct Auto 0.5 % (0.0-0.5); Lymphocytes Absolute Auto 0.8 10^3/uL (1.2-3.8); Lymphocytes Percent Auto 4.5 % (20.5-60.0); Mean Corpuscular HGB Conc 33.4 g/dL (29.9-35.2); Mean Corpuscular Hemoglobin 31.9 pg (25.9-34.0); Mean Corpuscular Volume 95.3 fL (80.0-94.0); Mean Platelet Volume 8.5 fL (9.5-13.5); Monocytes Absolute Auto 0.7 10^3/uL (0.3-0.8); Monocytes Percent Auto 4.4 % (1.7-12.0); Neutrophils Absolute Auto 15.1 10^3/uL (1.4-6.5); Neutrophils Percent Auto 90.5 % (43.0-75.0); Platelet Count 231 10^3/uL (150-450); Red Blood Count 3.17 10^6/uL (4.70-6.10); Red Cell Distribution Width 13.4 % (11.0-15.0); White Blood Count 16.6 10^3/uL (4.0-11.0)
[2024-04-07 05:24] LABS: Anion Gap 12.8; BUN Creatinine Ratio 25.4; Carbon Dioxide 24.5 mmol/L (21.0-32.0); Chloride 100 mmol/L (98-107); Estimated GFR (African America 33 (>=60 mL/min/1.73m^2); Estimated GFR (Non-African Ame 27 (>=60 mL/min/1.73m^2); Glucose 303 mg/dL (74-106); Potassium 4.3 mmol/L (3.5-5.1); Sodium 133 mmol/L (136-145)
[2024-04-07] MEDS: IPRATROPIUM/ALBUTEROL SULFATE 3 ML AMPUL.NEB IH ×4 (05:29→20:00)
[2024-04-07] MEDS: HYOSCYAMINE SULFATE 0.125 MG TAB.SUBL SL ×3 (06:12→21:37)
[2024-04-07] MEDS: HYDRALAZINE HCL 50 MG TABLET 100 MG PO ×3 (06:12→21:37)
--- NOTE | 2024-04-07 07:48 | P.PN_ITS ---
Progress Note: Subjective Subjective Interval history: Patient with less cough this morning, still some shortness of breath with activity, has been able to be weaned off of his supplemental oxygen, Exam Constitutional Vital Signs, click to edit/add: Last Vital Signs Temp 98.2 F 04/07/24 04:00 Pulse 90 04/07/24 06:13 Resp 18 04/07/24 05:30 BP 131/69 04/07/24 04:00 Pulse Ox 93 L 04/07/24 05:30 O2 Del Method Room Air 04/07/24 05:30 O2 Flow Rate 1 04/06/24 12:34 Documenting provider has reviewed patient's vital signs: yes Common normals: apparent distress (Cough during the evaluation) Chest Common normals: inspection of chest normal Respiratory Common normals: no retractions and no use of accessory muscles; abnormal respiratory effort (In moved cough) Auscultation: rhonchi and egophony left lower; no rales (Resolved) Cardio Common normals: regular rate and regular rhythm GI Common normals: Normal to inspection, nondistended, normoactive bowel sounds present, soft to palpation and non-tender Extremity Common normals: abnormal to inspection (1+ edema) Progress Note: Objective Labs Labs: Short CBC 04/07/24 Range/Units 04:49 WBC 16.6 H (4.0-11.0) 10^3/uL Hgb 10.1 L (14.0-18.0) g/dL Hct 30.2 L (42.0-54.0) % Plt Count 231 (150-450) 10^3/uL BMP 04/07/24 04:49 Sodium 133 L Potassium 4.3 Chloride 100 Carbon Dioxide 24.5 BUN 59.0 H Creatinine 2.32 H Glucose 303 H Calcium 9.0 Progress Note: A&P Assessment and Plan (1) COPD exacerbation: (2) Acute exacerbation of chronic heart failure: (3) Acute hypoxemic respiratory failure: (4) Pneumonia: (5) Urinary tract infection: (6) CKD (chronic kidney disease): (7) CAD (coronary artery disease): (8) A-fib: (9) GERD (gastroesophageal reflux disease): (10) Hypertension: (11) Diabetes: Plan Admission findings: Sinus tachycardia, respiratory distress, uncontrolled hypertension, acute hypoxia with O2 sat of 92% on 2 L, leukocytosis with left shift consistent with bacterial infection, elevated BNP consistent with acute bilateral pneumonia causing acute combined congestive heart failure leading to sepsis (tachycardia, respiratory distress, leukocytosis, known infectious source of lungs) Sepsis due to bilateral pneumonia-likely healthcare acquired pneumonia with recent hospitalization, Zosyn, will hold off on vancomycin secondary to chronic kidney disease stage III, linezolid for MRSA, aerosols, inhaled steroids, holding off on IV steroids secondary to diabetes-if, maintain current treatment plan, able to be weaned off of supplemental oxygen but white blood cell count is still significantly elevated, Acute combined congestive heart failure-echocardiogram still pending-good diuresis yesterday, combined 4.3 L diuresed, BNP improving Acute UTI-will check on culture, is been struggling to treat a fungal infection in his bladder, maintain current antifungal medications, antibiotics for pneumonia above should cover any bacterial urinary tract infection Iron deficiency anemia-monitor daily Hyponatremia on admission-down somewhat again today likely from the diuresis from previous day Chronic kidney disease stage III-stable this morning NIDDM-insulin sliding scale Hypomagnesemia-supplement Bladder outlet obstruction secondary to BPH-Gomez catheter placed Coronary artery disease-no chest pain, repeated high-sensitivity troponin this morning Uncontrolled hypertension on admission-adjust medications as necessary, improved this morning Atrial fibrillation-rate controlled-maintain Eliquis Irritable bowel-maintain Levsin GERD-continue with home medications Admission status: Patient admitted with sepsis due to healthcare acquired pneumonia resulting in acute combined congestive heart failure, medically necessary treatment will span 2 midnights. Inpatient status, although off of supplemental oxygen his white blood cell count is still significant elevated at 16,000, maintain current treatment plan at least 1 additional day likely two Urinary Catheter Management Urinary Catheter Management 2-way Urethral: Cath placed during this visit: yes Urethral indwelling: Yes Reason for continuing: acute urinary retention Insertion date: 04/05/24 Insertion time: 22:10
[2024-04-07] MEDS: LACTULOSE 10 GM/15 ML UD CUP 30 GM PO (08:21)
[2024-04-07] MEDS: POLYETHYLENE GLYCOL 3350 17 GM POWDER PACKET PO (08:21)
[2024-04-07] MEDS: MAGNESIUM OXIDE 400 MG TABLET PO ×2 (08:21→21:37)
[2024-04-07] MEDS: GLIPIZIDE 10 MG TABLET PO ×2 (08:21→21:37)
[2024-04-07] MEDS: ENSURE HP 237 ML LIQUID PO ×2 (08:21→21:37)
[2024-04-07] MEDS: AMLODIPINE BESYLATE 5 MG TABLET 10 MG PO (08:22)
[2024-04-07] MEDS: ATORVASTATIN CALCIUM 10 MG TABLET PO (08:22)
[2024-04-07] MEDS: FLUCONAZOLE 100 MG TABLET 400 MG PO (08:22)
[2024-04-07] MEDS: FERROUS SULFATE 325 MG TABLET PO (08:22)
[2024-04-07] MEDS: INSULIN GLARGINE 300 UNIT/3 ML INSULN.PEN 26 UNIT SQ ×2 (08:22→21:39)
[2024-04-07] MEDS: ALLOPURINOL 300 MG TABLET PO (08:22)
[2024-04-07] MEDS: INSULIN ASPART 300 UNIT/3 ML PEN SUBQ ×4 (08:23→21:39)
[2024-04-07] MEDS: LINEZOLID IN DEXTROSE 5% 600 MG/300 ML PIGGYBACK 300 MG IV (08:26)
[2024-04-07] MEDS: 0.9 % SODIUM CHLORIDE 250 ML 10 ML IV (08:30)
[2024-04-07] MEDS: GUAIFENESIN 200 MG/DEXTROMETHORPHAN 20 MG 10 ML UNIT DOSE CUP PO (09:14)
[2024-04-07] MEDS: CARVEDILOL 6.25 MG TABLET PO ×2 (09:14→21:37)
[2024-04-07] MEDS: BENZONATATE 100 MG CAPSULE 200 MG PO (09:14)
[2024-04-07] MEDS: APIXABAN 5 MG TABLET PO ×2 (09:14→21:37)
[2024-04-07] MEDS: BUDESONIDE 0.5 MG/2 ML AMPULE NEB IH ×2 (10:54→20:00)
[2024-04-07] MEDS: LINEZOLID IN DEXTROSE 5% 600 MG/300 ML PIGGYBACK 250 MG IV (20:41)
[2024-04-07] MEDS: TERAZOSIN HCL 5 MG CAPSULE 10 MG PO (21:37)
[2024-04-08] VITALS (9 sets, daily range): BP systolic 135–136; BP diastolic 67–71; PULSE 66–105; TEMP 36.9; O2SAT 91–96
[2024-04-08] MEDS: IPRATROPIUM/ALBUTEROL SULFATE 3 ML AMPUL.NEB IH ×2 (04:11→10:05)
[2024-04-08] MEDS: HYOSCYAMINE SULFATE 0.125 MG TAB.SUBL SL (05:28)
[2024-04-08] MEDS: HYDRALAZINE HCL 50 MG TABLET 100 MG PO (05:28)
[2024-04-08] MEDS: PIPERACILLIN SODIUM/TAZOBACTAM 3.375 GM in 0.9 % SODIUM CHLORIDE 50 ML IV (05:29)
[2024-04-08 05:58] LABS: Basophils Percent Auto 0.1 % (0.2-2.0); Eosinophils Absolute Auto 0.2 10^3/uL (0.0-0.7); Eosinophils Percent Auto 1.2 % (0.9-7.0); Hematocrit 30.8 % (42.0-54.0); Hemoglobin 10.3 g/dL (14.0-18.0); Immature Granulocytes Abs Auto 0.05 10^3/uL (0.00-0.03); Immature Granulocytes Pct Auto 0.4 % (0.0-0.5); Lymphocytes Absolute Auto 1.4 10^3/uL (1.2-3.8); Lymphocytes Percent Auto 10.7 % (20.5-60.0); Mean Corpuscular HGB Conc 33.4 g/dL (29.9-35.2); Mean Corpuscular Hemoglobin 32.2 pg (25.9-34.0); Mean Corpuscular Volume 96.3 fL (80.0-94.0); Mean Platelet Volume 8.5 fL (9.5-13.5); Monocytes Percent Auto 7.7 % (1.7-12.0); Neutrophils Absolute Auto 10.7 10^3/uL (1.4-6.5); Neutrophils Percent Auto 79.9 % (43.0-75.0); Platelet Count 244 10^3/uL (150-450); Red Cell Distribution Width 14.1 % (11.0-15.0); White Blood Count 13.4 10^3/uL (4.0-11.0)
[2024-04-08 06:24] LABS: Anion Gap 10.5; BUN Creatinine Ratio 28.9; Calcium 9.1 mg/dL (8.5-10.1); Carbon Dioxide 25.8 mmol/L (21.0-32.0); Chloride 103 mmol/L (98-107); Estimated GFR (African America 33 (>=60 mL/min/1.73m^2); Estimated GFR (Non-African Ame 27 (>=60 mL/min/1.73m^2); Glucose 204 mg/dL (74-106); Magnesium 1.7 mg/dL (1.8-2.4); Potassium 4.3 mmol/L (3.5-5.1); Sodium 135 mmol/L (136-145)
[2024-04-08] MEDS: FLUCONAZOLE 100 MG TABLET 400 MG PO (08:32)
[2024-04-08] MEDS: POLYETHYLENE GLYCOL 3350 17 GM POWDER PACKET PO (08:32)
[2024-04-08] MEDS: MAGNESIUM OXIDE 400 MG TABLET PO (08:32)
[2024-04-08] MEDS: GLIPIZIDE 10 MG TABLET PO (08:32)
[2024-04-08] MEDS: FERROUS SULFATE 325 MG TABLET PO (08:34)
[2024-04-08] MEDS: INSULIN GLARGINE 300 UNIT/3 ML INSULN.PEN 26 UNIT SQ (08:34)
[2024-04-08] MEDS: ATORVASTATIN CALCIUM 10 MG TABLET PO (08:34)
[2024-04-08] MEDS: ALLOPURINOL 300 MG TABLET PO (08:34)
[2024-04-08] MEDS: AMLODIPINE BESYLATE 5 MG TABLET 10 MG PO (08:34)
[2024-04-08] MEDS: INSULIN ASPART 300 UNIT/3 ML PEN SUBQ (08:34)
[2024-04-08] MEDS: LINEZOLID IN DEXTROSE 5% 600 MG/300 ML PIGGYBACK 150 MG IV (08:36)
[2024-04-08] MEDS: ENSURE HP 237 ML LIQUID PO (08:37)
[2024-04-08] MEDS: CARVEDILOL 6.25 MG TABLET PO (08:38)
[2024-04-08] MEDS: 0.9 % SODIUM CHLORIDE 250 ML 10 ML IV (08:41)
[2024-04-08] MEDS: APIXABAN 5 MG TABLET PO (09:16)
[2024-04-08] MEDS: BUDESONIDE 0.5 MG/2 ML AMPULE NEB IH (10:05)
--- NOTE | 2024-04-08 10:24 | P.DS_ITS ---
DS: Providers Provider Date of admission: 04/05/24 22:45 Primary care physician: Jayy Dutta MD Consults: 04/05/24 21:58 Consult to Pharmacy Routine Consulting Provider: Aura Damon Reason for consultation: renal dosing for ZOSYN Has provider been notified: Yes 04/06/24 06:40 Consult to Pharmacy Routine Consulting Provider: Reason for consultation: Please [place] me when Med Rec is Updated Has provider been notified: No Occupational Therapy Eval and Treat Routine Reason for consultation: Only if needed for Rehab Has provider been notified: No Physical Therapy Eval and Treat Routine Reason for consultation: Eval and Treat Has provider been notified: No DS: Diagnosis Discharge Diagnosis (1) COPD exacerbation: (2) Acute exacerbation of chronic heart failure: (3) Acute hypoxemic respiratory failure: (4) Pneumonia: (5) Urinary tract infection: (6) CKD (chronic kidney disease): (7) CAD (coronary artery disease): (8) A-fib: (9) GERD (gastroesophageal reflux disease): (10) Hypertension: (11) Diabetes: Plan Admission findings: Sinus tachycardia, respiratory distress, uncontrolled hypertension, acute hypoxia with O2 sat of 92% on 2 L, leukocytosis with left shift consistent with bacterial infection, elevated BNP consistent with acute bilateral pneumonia causing acute combined congestive heart failure leading to sepsis (tachycardia, respiratory distress, leukocytosis, known infectious source of lungs) Sepsis due to bilateral pneumonia-likely healthcare acquired pneumonia with recent hospitalization, improving at the time of discharge Acute combined congestive heart failure-echocardiogram still pending-improving at the time of discharge Acute UTI-no growth on culture Iron deficiency anemia-monitor daily Hyponatremia on admission-down somewhat again today likely from the diuresis from previous day Chronic kidney disease stage III-stable this morning NIDDM-insulin sliding scale Hypomagnesemia-supplement Bladder outlet obstruction secondary to BPH-Gomez catheter placed Coronary artery disease-no chest pain, repeated high-sensitivity troponin this morning Uncontrolled hypertension on admission-adjust medications as necessary, improved this morning Atrial fibrillation-rate controlled-maintain Eliquis Irritable bowel-maintain Levsin GERD-continue with home medications Admission status: Patient admitted with sepsis due to healthcare acquired pneumonia resulting in acute combined congestive heart failure, medically necessary treatment will span 2 midnights. Inpatient status, although off of supplemental oxygen his white blood cell count is still significant elevated at 16,000, maintain current treatment plan at least 1 additional day likely two DS: Summary Hospital Course Hospital Course: Patient was admitted with acute healthcare acquired pneumonia with recent hospitalization for acute UTI, patient having increasing respiratory distress and cough with sputum production, sputum is pending at the time of discharge, he is much improved today, currently been off of supplemental oxygen for the last 24 hours, heart failure also stabilized, white blood cell count is still elevated over 16,000 yesterday, improved today, at this point with his white blood cell count improving, his hypoxia resolved, he can be discharged to home in improving condition. Medications to this. Follow-up with me in the office next week. Improved much faster than expected Status at Discharge Overall status at discharge: patient is not back to baseline Time Spent with Patient Time attestation: Total time spent providing and/or coordinating discharge services: Time spent: greater than 30 minutes Exam Constitutional Vital Signs, click to edit/add: Last Vital Signs Temp 98.5 F 04/08/24 07:25 Pulse 87 04/08/24 10:06 Resp 16 04/08/24 10:06 BP 136/67 04/08/24 07:25 Pulse Ox 96 04/08/24 10:06 O2 Del Method Room Air 04/08/24 10:06 O2 Flow Rate 1 04/06/24 12:34 Documenting provider has reviewed patient's vital signs: yes Common normals: apparent distress (Cough during the evaluation) Chest Common normals: inspection of chest normal Respiratory Common normals: normal respiratory effort, no retractions and no use of accessory muscles Auscultation: rhonchi (Minimal); no rales (Resolved) and no egophony (Resolved) Cardio Common normals: regular rate and regular rhythm GI Common normals: Normal to inspection, nondistended, normoactive bowel sounds present, soft to palpation and non-tender Extremity Common normals: abnormal to inspection (1+ edema) DS: Data Data Completed and Pending Labs on day of discharge: Labs from last 24 hours 04/08/24 05:46 WBC 13.4 H RBC 3.20 L Hgb 10.3 L Hct 30.8 L MCV 96.3 H MCH 32.2 MCHC 33.4 RDW 14.1 Plt Count 244 MPV 8.5 L Neut % (Auto) 79.9 H Lymph % (Auto) 10.7 L [place] % (Auto) 7.7 Eos % (Auto) 1.2 Baso % (Auto) 0.1 L Neut # (Auto) 10.7 H Lymph # (Auto) 1.4 [place] # (Auto) 1.0 H Eos # (Auto) 0.2 Baso # (Auto) 0.0 Abs Immat Gran (auto) 0.05 H Imm/Tot Granulo (auto) 0.4 Sodium 135 L Potassium 4.3 Chloride 103 Carbon Dioxide 25.8 Anion Gap 10.5 BUN 67.0 H Creatinine 2.32 H Est GFR ( Amer) 33 L Est GFR (Non-Af Amer) 27 L BUN/Creatinine Ratio 28.9 Glucose 204 H Calcium 9.1 Magnesium 1.7 L NT-Pro-B Natriuret Pep 9962.0 H* Preliminary micro results at discharge 04/05/24 20:54 Blood Culture Result 2 - Preliminary Blood - Left Forearm NO GROWTH AT 36-48 HOURS. FINAL TO FOLLOW. 04/05/24 20:46 Blood Culture Result 1 - Preliminary Blood - Left Antecubital NO GROWTH AT 36-48 HOURS. FINAL TO FOLLOW. Discharge Plan Discharge Disposition: Home, Self-Care Condition: Fair Discharge Medications: New benzonatate 100 mg Capsule 200 mg PO Q8H PRN (Reason: Cough) Qty: 24 0RF levofloxacin 750 mg tablet 750 mg PO DAILY 7 Days Qty: 7 0RF Continued hyoscyamine sulfate 0.125 mg Tablet, Sublingual 0.125 mg sublingual QID Qty: 40 0RF mirabegron [Myrbetriq] 25 mg tablet extended release 24 hr 25 mg PO DAILY Qty: 30 11RF tolterodine 2 mg capsule,extended release 24hr 2 mg PO Q24H diclofenac sodium 1 % gel 2 g TOPICAL BID Opzelura 1.5 % cream 1 applic TOPICAL BID PRN (Reason: dermatitis) carvedilol 6.25 mg tablet 6.25 mg PO Q12H glipizide 10 mg tablet 10 mg PO BID spironolactone 25 mg tablet 25 mg PO DAILY amlodipine 10 mg tablet 10 mg PO DAILY simvastatin 20 mg tablet 20 mg PO DAILY omeprazole 20 mg capsule,delayed release(DR/EC) 20 mg PO DAILY allopurinol 300 mg tablet 300 mg PO DAILY hydralazine 50 mg tablet 100 mg PO Q8H furosemide 20 mg tablet 20 mg PO Q12H Eliquis 5 mg tablet 5 mg PO Q12H cyanocobalamin (vitamin B-12) [Vitamin B-12] 1,000 mcg tablet 1,000 mcg PO DAILY aspirin [Adult Aspirin Regimen] 81 mg tablet,delayed release (DR/EC) 81 mg PO .weekly calcium citrate-vitamin D3 [Calcium Citrate + D] 315 mg-5 mcg (200 unit) tablet 1 tab PO DAILY multivitamin [Daily Multi-Vitamin] Tablet 1 tab PO DAILY insulin glargine 100 unit/mL (3 mL) insulin pen 26 unit subcut BID acetaminophen 500 mg capsule 1,000 mg PO Q6H PRN (Reason: fever or pain) terazosin 10 mg capsule 10 mg PO BEDTIME Ozempic 1 mg/dose (4 mg/3 mL) pen injector 1 mg subcut QWEEK ferrous sulfate [iron] 325 mg (65 mg iron) tablet 325 mg PO DAILY sildenafil 100 mg tablet 100 mg PO Q24H PRN (Reason: sexual activity) tacrolimus 0.1 % ointment 1 applic TOPICAL Q12H PRN (Reason: skin irritation) Discontinued cefdinir 300 mg capsule 600 mg PO DAILY Qty: 30 0RF Print Language: Hungarian Patient Instructions: Benzonatate (By mouth), Levofloxacin (By mouth), Heart Failure (DC), Pneumonia (DC) Forms: Portal Instructions Follow Up Appointments: Call WednesdayApr 10 for follow up with Dr Dutta for one week [phone] Discharge Date/Time: 04/08/24 11:59
--- NOTE | 2024-04-10 14:58 | CM.DCFOLLOWU ---
Person spoke with: Roel How are you feeling? Much better How is your pain? No pain Did you understand your discharge instructions? Yes Do you have any questions about your discharge instructions? No Were you given any prescriptions at discharge? Yes Were you able to get your prescriptions filled? Yes Do you understand how to take your medications as ordered? Yes Do you have any questions about your follow up appointment and do you plan to keep your follow up appointment? No they are scheduled for this week Is there anything else that you would like to discuss? No Questions/Comments/Concerns/Other:
== END 2024-04-08 11:59 | disposition home or self-care (01) | DRG 871 ==
LOC: ER 22:00 → MS 22:49
PROVIDERS: Registered Nurse; Admitting Provider Family Medicine; Emergency Provider Student in an Organized Health Care Education/Training Program; PCP Family Medicine; Visit Provider Family Medicine
DX: A41.9 Sepsis, unspecified organism (principal); I13.0 Hypertensive heart and chronic kidney disease with heart failure and stage 1 through stage 4 chronic kidney disease, or unspecified chronic kidney disease; I50.41 Acute combined systolic (congestive) and diastolic (congestive) heart failure; J18.9 Pneumonia, unspecified organism; J96.01 Acute respiratory failure with hypoxia; N39.0 Urinary tract infection, site not specified; E87.1 Hypo-osmolality and hyponatremia; J44.0 Chronic obstructive pulmonary disease with (acute) lower respiratory infection; N40.1 Benign prostatic hyperplasia with lower urinary tract symptoms; N13.8 Other obstructive and reflux uropathy; R65.20 Severe sepsis without septic shock; D50.9 Iron deficiency anemia, unspecified; E11.22 Type 2 diabetes mellitus with diabetic chronic kidney disease; E83.42 Hypomagnesemia; I25.10 Atherosclerotic heart disease of native coronary artery without angina pectoris; I48.91 Unspecified atrial fibrillation; K21.9 Gastro-esophageal reflux disease without esophagitis; K58.9 Irritable bowel syndrome, unspecified; N18.30 Chronic kidney disease, stage 3 unspecified; Y95 Nosocomial condition; Y92.239 Unspecified place in hospital as the place of occurrence of the external cause; Z79.01 Long term (current) use of anticoagulants; Z79.82 Long term (current) use of aspirin; Z79.4 Long term (current) use of insulin; Z79.84 Long term (current) use of oral hypoglycemic drugs; Z79.85 Long-term (current) use of injectable non-insulin antidiabetic drugs; Z79.899 Other long term (current) drug therapy; Z88.8 Allergy status to other drugs, medicaments and biological substances; Z95.0 Presence of cardiac pacemaker; Z87.891 Personal history of nicotine dependence; Z11.52 Encounter for screening for COVID-19
CPT/HCPCS: 36415; 51702; 71045; 80048; 80053; 81001; 82948; 83605; 83735; 83880; 84484; 85007; 85025; 85027; 87040; 87070; 87081; 87086; 87804; 87811; 93005; 93306; 94640; 94667; 94668; 94761; 96365; 96375; 97163; 97165; 99285; J1940; J2020; J2543; J2919; J3370

== ENCOUNTER 2024-04-08 17:37 | Emergency (ER) | payer MEDICARE, OTHER, SELFPAY ==
[2024-04-08 17:42] VITALS: BP 137/69; PULSE 86; TEMP 36.9; O2SAT 95
--- OUTSIDE RECORDS SUMMARY | 2024-04-08 17:43 | XMS_ITS | CCD ---
Author Organization [facility] Care Team Providers Care Supervisor [employer] Name Role Phone Andrea Espinoza Unavailable Unavailable Unavailable SHAKA Lange, DR JAMESON Admitting Unavailable SHAKA ., DR JAMESON Attending Unavailable CAROL ., DR SANDOVAL Primary Care Unavailable PRASANTH ., TAMARA RAI Consulting UnavailKaveh Lange, DR JAMESON Consulting Unavailable MAILE CANO Consulting Unavailable MARIXA ROY Admitting Unavailable MARIXA ROY Attending Unavailable MARIXA ROY Primary Care Unavailable FLORIAN, DR JOE Garcia Consulting Unavailable MARIXA ROY Consulting Unavailable Unavailable Unavailable fAua MARCIAL, Dr. Varghese Lord Attending Unavailable Afua MARCIAL, [...] De La Rosa Primary Care Unava ilable Leana DO, Andrea De La Rosa Primary Care Provider Andrea Espinoza DO Primary Care Provider Werner Scruggs Admitting Unavailable Werner Scruggs Attending Unavailable Vini Quinteros Attending Unavailable Mica Car Attending Unavailable Mica Car Attending Unavailable NAPOLEON TA Attending Unavailab Varghese Kearns Admitting Unavailable Varghese Caal Attending Unavailable Varghese Caal Referring Unavailable Barb Loza Admitting UnavailBarb Lang Attending Unavailabl e Dayane, Mica MAnisa Admitting Unavailable Lue, Mica MAnisa Attending Unavailable Lori Medina MD Primary Care Provider [phone] BLANCA ALONSO Attending Unavailable PETITTGiovanna, BLANCA Zambrano Attending Unavailable DANK JONES Attending Unavailable PETTIM, BLANCA Zambrano Attending Unavailable CHUCK, BLANCA Zambrano Attending Unavailable BOBO BRENNER Attending Unavailable LORI MEDINA Primary Care Unavailable LORI MEDINA Primary Care Unavailable BEATA DEGROOT Attending Unavailable Andrea Espinoza DO Primary Care Provider VARGHESE CAAL Attending Unavailable AFUA VARGHESE P Referring Unavailable ANDREA ESPINOZA Primary Care Unavailable OSVALDO DICKINSON Attending Unavailable AFUA VARGHESE P Referring Unavailable ANDREA ESPINOZA Primary Care Unavailable Benotn Vasquez DO Attending Provider UnavailBenton Casey Admitting Unavailable Benton Vasquez Attending Unavailable Benton Vasquez Attending Unavailable Benton Vasquez Admitting Unavailable Lue, Mica MAnisa Attending Unavailable Lue, Mica M. Referring Unavailable Lue, Mica M. Attending Unavailable Lue, Mica MAnisa Referring Unavailable Anna Sr Attending Unavailable Lue, Mica MAnisa Attending Unavailable NATA TA Attending Unavailable Lue, Mica M. Referring Unavailable Lue, Mica M. Admitting Unavailable Lue, Mica M. Attending Unavailable Lue, Mica M. Referring Unavailable Lue, Mica M. Admitting Unavailable Lue, Mica M. Attending Unavailable Afua, Varghese P Admitting Unavailable Afua Varghese P Attending Unavailable Afua Varghese P Referring Unavailable Lue, Mica M. Admitting Unavailable Lue, Mica M. Attending Unavailable Allergies Allergy Classification Reported Allergen(s) Allergy Type Date of Onset Reaction(s) Facility (9 sources) Enalapril; 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: [enalapril] Drug Allergy 02-10-20 Cough [facility] (17 sources) Metoprolol; 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: [metoprolol] Drug Allergy 10-12-19 23 Cough, Unknown -[facility] DO Work Phone: (3 sources) Fosinopril; 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: [Monopril] Drug Allergy 03-16-20 14 [facility] Repository (1 source) Metoprolol Drug Allergy 05-16-19 15 [facility] Repository (1 source) strawberry allergenic extract Drug Allergy 05-16-19 15 [facility] Repository (1 source) tomato allergenic extract Drug Allergy 05-16-19 15 [facility] Repository (2 sources) hydroCHLOROthiazide / Metoprolol; 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: [hydrochlorothiazide-m etoprolol] Drug Allergy [facility] Repository (2 sources) [place]; 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: [Strawberries] Food allergy (disorder) [facility] Repository (2 sources) Tomatoes; 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: [Tomatoes] Food allergy (disorder) [facility] Repository (6 sources) Fosinopril; 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: [FOSINOPRIL] Drug [...] sources) Polyene Antifungal Start: 08-10-2023 nystatin (Mycostatin) [id number] UNIT/GM powder Indications: Erythema intertrigo Apply to [...] Start: 01-14-2021 take 2 tablets by mo ut once daily Spironolactone 25 MG Oral Tablet [...] 10 mg oral capsule (13 sources) alpha-Adrenergic Hoiwe Start: 04-23-2020 take 1 capsule by mouth [...] disease (2 sources) Atherosclerotic heart disease of tetlin coronary artery without angina pectoris; 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: [Old [...] 06-01-2022 10-11-2022 Chronic Other aftercare (1 source) nursing home (current) use of aspirin; 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: [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 Normal [facility] Comment on above: Performed By: #### C UU #### [address] C Urineon 03-26-2024 Bacteria identified Cx Nom (U) Microbiology PROCEDURE: Urine Culture [R1] SOURCE: U Random BODY SITE: COLLECTED DATE/TIME: 03/24/2024 10:36 EST RECEIVED DATE/TIME: 03/24/2024 18:30 EST START DATE/TIME: 03/24/2024 18:30 EST FREE TEXT SOURCE: Josep SANDHU, Mica M. Mica Car MD FINAL REPORTS Final Report [] Verified Date/Time: 03/26/2024 07:44 EST No growth at 2 days. Performing Locations R1: This test was performed at: [facility] [place], [address] [place] [address], [phone] , [place], Normal [facility] Comment on above: Performed By: #### 2 [id number] #### [facility] [address] [place] [address] Main OR Preoperative Recordo n 03-20-2024 Main OR Preoperative Record Main OR Preoperative Record Holding Area Document Type FTURO Summary Primary Physician: Mica Car MD Finalized Date/Time: 03/20/24 16:29:34 Pt. Name: ARCINIEGA LEIGHTONMARTÍNEZ [place]/Sex: 1945 Male Med Rec #: [id number] Physician: Mica Car MD Financial #: [id number] Pt. Type: O Room/Bed: / Admit/Disch: 12/27/23 [...] Complaints of Pain: No Skin Integrity Intact, Moodys, Warm, & Dry Vitals - EU Blood Pressure 122/75 Pulse 81 bpm Respirations 18 br/min SPO2 96 % Additional None RN Reviewed Yes Specimens Collected Last Modified By: Ankita Gray RNnicantonieta Willett 12/27/23 11:25:48 Finalized By: Kendrick GODINEZ, Dalia MARTINEZ Document Signatures Signed By: Latha David LPN 12/27/23 11:01 Latha David LPN 12/27/23 11:02 Kendrick GODINEZ, Dalia MARTINEZ 03/20/24 16:29 Normal [facility] Urine Cultureon 03-11-2024 Bacteria identified Cx Nom (U) ORGANISM: Prudence glabrata (O:CANGLA) Oliver Count 75,000 PERFORMED BY: [place] [address] PATHOLOGIST FIRST LINE PRODUCTION SUPERVISOR OSCAR ESCOBAR M.D. Normal [facility] Comment on above: Performed By: #### C UU #### [address] Urine cultureOrdered By: Derek Vasquez on 03-11-2024 Bacteria identified Cx Nom (U) Abnormal [facility] Urology Office/Clinic Noteon 03-02-2024 Urology Office/Clinic [...] that he had 3 day stay at [facility] on 02/26/24 for severe UTI & [...] further bleeding since then. Pt went to [facility] 02/26/24 d/t persistent dysuria. Admitted for [...] 124ml Told him to continue Alfuzosin. Ordered: [id number] Measure Post Void residual urine and/or bladder [...] Urnls Dip Stick Auto w/o Microscopy POC 57574 3. 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 Follow-up With When Contact Information Keep previously scheduled follow up on 04/06/24 Patient Education Acute Urinary Retention, Male I, Martir Shea, personally scribed for TAMARA Fernandez on 03/02/2024 13:37:23. . Documentation recorded by the deon Shea_ accurately reflects the services(s) I performed and decisions made by me. Authenticated by Nata aT PA-C on 03/02/2024 17:13:21. Problem List/Past Medical History Ongoing Anticoagulated Arthritis Aspirin long-term use BPH with urinary obstruction CKD (chronic kidney disease) stage 3, GFR 30-59 ml/min Diabetes ED (erectile dysfunction) Emphysema/COPD Epidermal cyst Extreme obesity Former smoker Heart disease Hx of migraine headaches Hypercholesteremia Inco (more content not included)... Normal [facility] Comment on above: Result Comment: Elec tronically Signed By: FELIPE BENDER, NATA E\.br\Date and Time Signed: 03/02/24 17:13 EST\.br\Electronically Co-Signed By: Martir Shea\Date and Time Co-Signed: 03/02/24 13:38 EST ECG 12 Leadon 03-01-2024 AV paced rhythm [facility] Work Phone: URINE CULTUREon 02-19-2024 Bacteria identified Cx Nom (U) CULTURE RESULTS 10-50,000 ORGANISMS/mL NORMAL UROGENITAL ELIN Normal [facility] Comment on above: Performed By: #### 6 30-4 #### [facility] ([id number]) [address] [place] [address], [address] [place] [address] URN MACROSCOPIC NURon 2023 BILIRUBIN LETHA Negative Normal NEG [facility] Comment on above: Performed By: #### N UM #### [facility] ([id number]) [address] [place] [address] BLOOD/HGB LETHA Large Abnormal NEG [facility] Comment on above: Performed By: #### N UM #### [facility] ([id number]) [address] [place] [address] GLUCOSE LETHA >=1000 Abnormal NEG [facility] Comment on above: Performed By: #### N UM #### [facility] ([id number]) [address] [place] [address] KETONES LETHA Negative Normal NEG [facility] Comment on above: Performed By: #### N UM #### [facility] ([id number]) [address] [place] [address] LEUKOCYTE ESTERASE LETHA Small Abnormal NEG [facility] Comment on above: Performed By: #### N UM #### [facility] ([id number]) [address] [place] [address] NITRITE LETHA Negative Normal NEG [facility] Comment on above: Performed By: #### N UM #### [facility] ([id number]) [address] [place] [address] PH LETHA 6.0 Normal 5.0-8.5 [facility] Comment on above: Performed By: #### N UM #### [facility] ([id number]) [address] [place] [address] PROTEIN LETHA 100 mg/dL Abnormal NEG [facility] Comment on above: Performed By: #### N UM #### [facility] ([id number]) [address] [place] [address] SPECIFIC GRAVITY LETHA 1.015 Normal 1.003-1.035 [facility] Comment on above: Performed By: #### N UM #### [facility] ([id number]) [address] [place] [address] UROBILINOGEN LETHA 0.2 eu/dL Normal <1.1 [facility] Comment on above: Performed By: #### N UM #### [facility] ([id number]) [address] [place] [address] Inpatient Patient Summaryon 02-14-2024 Inpatient Patient Summary Inpatient Patient Summary [place] [address] Clinical Summary Person Information Name: LEIGHTON ARCINIEGA Age: 78 Years : 1945 Sex: Male PCP: Lori Medina MD Marital Status: Race: White Ethnicity: Non- or Language: Bahamian Visit Id: Visit Reason: BPH WITH URINARY OBSTRUCTION Speciality: Acuity: Enc Type: Outpatient Med Service: Surgery Arrival: 02/14/2024 09:35:51 Discharge: Dispo Type: Address: [facility] LINDEN TONEY [address] [place] [id number] Provider Notes: Diagnosis: BPH with obstruction/lower urinary [...] day as needed for pain. acetaminophen-hydroc odone (Guild 325 mg-5 mg oral tablet) 1 Tablets [...] EU - Rezum Discharge Instructions (CUSTOM) Normal [facility] Main OR Intraoperative Recor don 02-14-2024 Main OR Intraoperative Record Main OR Intraoperative Record IntraOp Document Type FTURO Summary Primary Physician: Mica Car MD Finalized Date/Time: 02/14/24 12:08:58 Pt. Name: LEIGHTON ARCINIEGA /Sex: 1945 Male Med Rec #: [id number] Physician: Mica Car MD Financial #: [id number] Pt. Type: O Room/Bed: / Admit/Disch: 02/14/24 [...] 1 Entry 2 Entry 3 Case Attendee Mica Car MD, Kelsie E McClain [facility], Aura A Role Performed Surgeon - Primary Zipper Repairer - Primary Scrub - Primary Time In [...] CYSTOSCOPY LOCAL Patient Identity Birthday, ID Band REZUM(.) Verified (select at Check, Patient least 2): Participation Consents / H and P H&P, Surgery/Procedure Operative Site N/A Verified Consent Marking Verified Surgical Site Yes Laterality Verified n/a Verified Procedure Verified Yes Correct Patient Yes Position Verified Availability Equipment, Medication Time Out Josep SANDHU, Mica Johns, Verified (If Participants Jocy Corral, Applicable) Aura [...] Corral 02/14/24 12:08 Jocy Corral 02/14/24 12:08 [facility] Main OR Preoperative Recordo n 02-14-2024 Main OR Preoperative Record Main OR Preoperative Record Holding Area Document Type FTURO Summary Primary Physician: Mica Car MD Finalized Date/Time: 02/14/24 11:48:27 Pt. Name: KULDIP ARCINIEGAMARTÍNEZ Funes./Sex: 1945 Male Med Rec #: [id number] Physician: Mica Car MD Financial #: [id number] Pt. Type: O Room/Bed: / Admit/Disch: 02/14/24 [...] Complaints of Pain: No Skin Integrity Intact, Moodys, Warm, & Dry Vitals - EU Blood Pressure 152/74 Pulse 61 bpm Respirations 18 br/min SPO2 97 % Additional None RN Reviewed Yes Specimens Collected Last Modified By: Jocy Corral 02/14/24 11:48:23 Finalized By: Jocy Corral Document Signatures Signed By: Latha David LPN 02/14/24 11:05 Jocy Corral 02/14/24 11:48 Jocy Croral 02/14/24 11:48 Normal [facility] Operative Reporton Operative Report Operative Report Patient: [...] clearer. Follow-up in 1 month PVR.. Normal [facility] Comment on above: Result Comment: Elec tronically Signed By: Mica Car MD\.br\Date and Time Signed: 02/14/24 12:03 EST Outpatient Surgery Discharge Instructionon 02-14-2024 Outpatient Surgery Discharge Instruction Outpatient Surgery Discharge Instruction [place] [id number] Patient Discharge Instructions PERSON INFORMATION Name: LEIGHTON [...] there (more content not included)... Normal [facility] Ambulatory Visit Summaryon 1 04-01-2023 Ambulatory [...] Strength 500 mg oral tablet) acetaminophen-hydroc odone (Guild 325 mg-5 mg oral tablet) allopurinol (allopurinol [...] Josep SANDHU, MIGUELITO Richard, URO When: Comments: Tonie 02/14/24 Where: Medications What How Much When Instructions Unchanged acetaminophen (Tylenol Extra Strength 500 mg oral tablet) 2 Tablets By Mouth Every day as needed for for pain Contact prescribing physician if questions or concerns Unchanged acetaminophen-hydroc odone (Guild 325 mg-5 mg oral tablet) 1 Tablets [...] omeprazole (omep (more content not included)... Normal [facility] Urology Office/Clinic Noteon 01-31-2024 Urology Office/Clinic Note Urology Office/Clinic Note [facility] H[facility] Staff 78 year old male patient presents today for a [facility] ER follow up 01/23/24. Pt [...] with voice recognition artificial intelligence software, specifically [employer] and or [employer]ient [employer]. Substitutions may have occurred due to the [...] (N52.9: Male erectile dysfunction, unspecified) Hx of PR in 2002. Has pacemaker in place. Denies [...] in medic (more content not included)... Normal [facility] Comment on above: Result Comment: Elec tronically Signed By: MICHAEL Sr APRN, Anna Herrera\.br\Date and Time Signed: 01/31/24 16:26 EST URINE CULTUREon 01-24-2024 Bacteria identified Cx Nom (U) CULTURE RESULTS NO GROWTH AT <1000 CFU/mL Normal [facility] Comment on above: Performed By: #### 6 30-4 #### [facility] ([id number]) [address] [place] [address], [address] [place] [address] URN MACROSCOPIC NURon 2023 BILIRUBIN LETHA Negative Normal NEG [facility] Comment on above: Performed By: #### N UM #### [facility] ([id number]) [address] [place] [address], [place] [address] BLOOD/HGB LETHA Trace Abnormal NEG [facility] Comment on above: Performed By: #### N UM #### [facility] ([id number]) [address] [place] [address], [place] [address] GLUCOSE LETHA >=1000 Abnormal NEG [facility] Comment on above: Performed By: #### N UM #### [facility] ([id number]) [address] [place] [address] [place] [address] KETONES LETHA Negative Normal NEG [facility] Comment on above: Performed By: #### N UM #### [facility] ([id number]) [address] [place] [address] [place] [address] LEUKOCYTE ESTERASE LETHA Large Abnormal NEG [facility] Comment on above: Performed By: #### N UM #### [facility] ([id number]) [address] [place] [address] [place] [address] NITRITE LETHA Negative Normal NEG [facility] Comment on above: Performed By: #### N UM #### [facility] ([id number]) [address] [place] [address] [place] [address] PH LETHA 6.0 Normal 5.0-8.5 [facility] Comment on above: Performed By: #### N UM #### [facility] ([id number]) [address] [place] [address] [place] [address] PROTEIN LETHA 100 mg/dL Abnormal NEG [facility] Comment on above: Performed By: #### N UM #### [facility] ([id number]) [address] [place] [address] SPECIFIC GRAVITY LETHA 1.015 Normal 1.003-1.035 [facility] Comment on above: Performed By: #### N UM #### [facility] ([id number]) [address] [place] [address] UROBILINOGEN LETHA 0.2 eu/dL Normal <1.1 [facility] Comment on above: Performed By: #### N UM #### [facility] ([id number]) [address] [place] [address] Inpatient Patient Summaryon 12-27-2023 Inpatient Patient Summary Inpatient Patient Summary [place] [id number] Clinical Summary Person Information Name: LEIGHTON ARCINIEGA Age: 78 Years : 1945 Sex: Male PCP: Lori Medina MD Marital Status: Race: White Ethnicity: Non- or Language: Bahamian Visit Id: Visit Reason: BPH WITH URINARY OBSTRUCTION Speciality: Acuity: Enc Type: Outpatient Med Service: Surgery Arrival: 12/27/2023 09:33:05 Discharge: Dispo Type: Address: [facility] LINDEN TONEY [address] [facility] [id number] Provider Notes: Diagnosis: Anticoagulated; Other obstructive and [...] day as needed for pain. acetaminophen-hydroc odone (Guild 325 mg-5 mg oral tablet) 1 Tablets [...] When: Mica Car Comments: Office to schedule [facility] Type Location Start [place]ish [place] NCV Pacemaker (FT) FT.CARDIO 06/01/2024 11:00 AM 06/01/2024 11:15 AM Confirmed Patient Education Information: EU - Cystoscopy Discharge Instructions (CUSTOM) [place] [facility] Main OR Intraoperative Recor don 12-27-2023 Main OR Intraoperative Record Main OR Intraoperative Record IntraOp Document Type FTURO Summary Primary Physician: Mica Car MD Finalized Date/Time: 12/27/23 11:42:38 Pt. Name: LEIGHTON ARCINIEGA/Sex: 1945 Male Med Rec #: [id number] Physician: Mica Car MD Financial #: [id number] Pt. Type: O Room/Bed: / Admit/Disch: 12/27/23 09:33:05 - Institution: Case Times FTURO Entry 1 Patient Times In Room 12/27/23 11:23:00 Out Room 12/27/23 11:42:00 Procedure Times Start 12/27/23 11:29:00 Stop 12/27/23 11:34:00 Anesthesia Times Last Modified By: Tunde GODINEZ, Ankita Willett 12/27/23 11:36:34 General Comments: CYSTOSCOPY ENDED AT 1131. TRUS STARTED AT 1132 Tracy GRAY RN Case Attendance FTURO Entry 1 Entry 2 Entry 3 Case Attendee Josep SANDHU, Mica Gray RN, Micky Vargas Role Performed Surgeon - Primary Zipper Repairer - Primary Scrub - Primary Time In 12/27/23 11:23:00 12/27/23 11:23:00 12/27/23 11:23:00 Time Out 12/27/23 11:42:00 12/27/23 11:42:00 12/27/23 11:42:00 Procedure PROSTATE TRANSRECTAL PROSTATE TRANSRECTAL PROSTATE TRANSRECTAL ULTRASOUND WITH BIO(.) ULTRASOUND WITH BIO(.) ULTRASOUND WITH BIO(.) Comments Last Modified By: Tunde GODINEZ, Ankita Gray RN, Ankita Price RN 12/27/23 Shelly Willett 12/27/23 Shelly Willett 12/27/23 11:36:37 11:36:37 11:36:37 Surgical Procedures FTURO Entry 1 Procedure Description Procedure PROSTATE TRANSRECTAL Modifiers . ULTRASOUND WITH BIOPSY Surgeon Description CYSTOSCOPY, TRUS FOR PROSTATE SIZING Primary Procedure Yes Primary Surgeon Mica Car MD Start 12/27/23 11:29:00 Stop 12/27/23 11:34:00 Anesthesia Type Local Surgical Service Urology Wound Class 2 - Clean-Contaminated Last Modified By: Ankita Gray RN 12/27/23 11:36:35 General Case Data FTURO Pre-Care Text: Classifies surgical wound, implements aseptic technique, initiates traffic control Entry 1 Case Information OR URO 1 FT Case Level None Wound Class 2 - Clean-Contaminated Specialty Urology Preop Diagnosis BPH WITH URINARY Postop Same As Preop Yes OBSTRUCTION Postop Diagnosis BPH WITH URINARY Outcomes Met? Yes OBSTRUCTION Last Modified By: Ankita Gray RN 12/27/23 11:23:51 Post-Care Text: The patient is [...] Out Mica Car MD, Verified (If Participants Ankita Gray RN Applicable) Hernan Márquez Kendall R Time Out [...] By: Ankita Gray RN 12/27/23 11:42 Normal [facility] Operative Reporton 4 Operative Report Operative Report Patient: LEIGHTON ARCINIEGA Age: 78 years Sex: Male : 1945 Associated Diagnoses: None Author: Mica Car MD Procedure Operative Information Details: Date/ Time: 12/27/2023 12:10:00. Pre-Op Dx: BPH w/ LUTS - N40.1. Post-Op Dx: Feeling of incomplete bladder emptying (DHG18-DC R39.14, Working, Medical), Anticoagulated (CML48-JK Z79.01, Discharge, Medical), Same. Anesthesia Type: Local. [...] and TURP). Patient underwent Rezum [place] [address] Vargas. Tolerated well and would like to undergo this again understanding this may recur in the future. Patient was not on blood thinners at that time, but now is. Discussed elevated risk of bleeding especially a few weeks after procedure when tissue is removed sloughs off. -Will schedule Rezum under local. Will send antibiotics and Valium prior to procedure. Will need company driver. -Will need blood thinners held prior to procedure. Elevated risk of bleeding discussed. -Patient did better on terazosin. Will DC tamsulosin and restart terazosin 10 mg daily. [facility] [place] Normal [facility] Comment on above: Result Comment: Elec tronically Signed By: Josep SANDHU, Mica Johns\.br\Date and Time Signed: 12/27/23 12:14 EDT Outpatient Surgery Discharge Instructionon 12-27-2023 Outpatient Surgery Discharge Instruction Outpatient Surgery Discharge Instruction [place] [id number] Patient Discharge Instructions PERSON INFORMATION Name: LEIGHTON [...] When: Mica Car Comments: Office to schedule Rezum Type Location Start [facility] NCV Pacemaker (FT) FT.CARDIO 06/01/2024 11:00 AM [...] Date You may receive a survey from [employer] asking you to rate your care experience. Your feedback is important and will help us understand what we do well and how we can improve the quality of care we provide to you, your loved ones and our community. It?s an honor to serve you. Thank you for choosing [facility] Normal [facility] Ambulatory Visit Summaryon 0 11-12-2023 Ambulatory Visit [...] Strength 500 mg oral tablet) acetaminophen-hydroc odone (Guild 325 mg-5 mg oral tablet) allopurinol (allopurinol [...] if questions or concerns Unchanged acetaminophen-hydroc odone (Guild 325 mg-5 mg oral tablet) 1 Tablets [...] Mouth E (more content not included)... Normal [facility] Urology Office/Clinic Noteon 11-12-2023 Urology Office/Clinic Note [...] (N52.9: Male erectile dysfunction, unspecified) Hx of PR in 2002. Has pacemaker in place. Denies [...] antigen) Seborr (more content not included)... Normal [facility] Comment on above: Result Comment: Elec tronically Signed By: Mica Car MD\.br\Date and Time Signed: 11/12/23 16:43 EDT\.br\Electronically Co-Signed By: Maria Luz Mejia\.br\Date and Time Co-Signed: 11/12/23 16:14 EDT PTH [place] 10-15-2023 Parathyrin.intact [Mass/Vol] 49 pg/mL Invalid Interpretation Code 15-65 [facility] Comment on above: Result Comment: Perf ormed at: [facility] [address] [id number] PhD Carlos Singh Performed By: #### 1 [id number] #### [facility] Laboratory [address] [place] [address] ED Clinical Summaryon 2023 ED Clinical Summary ED Clinical Summary [address] [address] ED Clinical Summary Person Information Name: LEIGHTON ARCINIEGA [place] Age: 77 Years : 1945 Sex: Male Language: Bahamian PCP: Lori Medina MD Marital Status: Visit [...] 10/14/2023 13:18:55 10/14/2023 13:18:55 ADDRESS: [place]ie TONE[place] [address] [place] [phone] PHYS DOC NOTES: MEDICAL INFORMATION: Prescriptions Given: New Medications [id number], [address], [place] [id number], [phone] acetaminophen-hydroc odone (Guild 325 mg-5 mg oral tablet) 1 Tablets [...] EDUCATION INFORMATION: Instructions: Acute Knee Pain, Adult, Znlf-tg-Zvyv Follow up: With: Address: When: Andrea Espana [address] [place], [place] [phone] Business (1) In 3 days 10/17/2023 With: Address: When: Call to schedule a follow-up appointment with your orthopedic surgeon. Use the Guild as needed for pain along with icing. . If you are unable to get in with your orthopedic surgeon, I have provided a referral for another one. In 3 days 10/17/2023 With: Address: When: Lori Medina [address] [place] [address], [facility] [phone] Business (1) In 3 days DIAGNOSIS: Posterior left knee pain Normal [facility] ED Note-Physicianon 10-14-19 ED Note-Physician ED Note-Physician [...] he previously saw an orthopedic surgeon in [facility] for arthritis in which he will follow-up for further management of care. Patient is on Eliquis therefore I cannot prescribe him naproxen or any form of NSAID. Due to his age I did not feel a muscle relaxer was appropriate either. Based on this he is being prescribed 4 doses of Guild. He was educated on appropriate use of [...] q4hr for pain, 4 tab(s), Refill(s) 0, [facility][id number], 177, cm, 10/14/23 11:44:00 EDT, Height/Length Dosing, 104.8, kg, 10/14/23 11:44:00 EDT, Weight Dosing Disposition Plan Patient Discharge Condition stable Discharge Disposition home Discharge Prescription List Prescriptions Guild 325 mg-5 mg oral tablet, 1 tab(s), Oral, q4hr, PRN Follow-up With When Contact Information Andrea Espana In 3 days 10/17/2023 EDT [address] [place] [address]- Business (1) Additional Instructions: Call to schedule a follow-up appointment with your orthopedic surgeon. Use the Guild as needed for pain along with icing. . If you are unable to get in with your orthopedic surgeon, I have provided a referral for another one. In 3 days 10/17/2023 EDT Additional Instructions: Lori Medina In 3 days [address] [phone]- Business (1) Additional Instructions: Patient Education Acute Knee Pain, Adult, Wzsz-zr-Suft Attestation Patient seen and evaluated by the physician personal assistant. Attending physician was present in the emergency department and supervised care. This visit was performed by both the physician and an APC. I performed all aspects of the MDM as documented. This report was transcribed using voice recognition software. Every effort was made to ensure accuracy, however, inadvertently computerized slitting machine feeder mistakes may be present. Appropriate healthcare PPE was used in evaluating this patient. The patient was placed in a mask. The healthcare provider was wearing mask, gloves, and utiliz (more content not included)... Normal [facility] Comment on above: Result Comment: Elec tronically Signed By: Vini Quinteros DO\.br\Date and Time Signed: 10/14/23 16:09 EDT\.br\Electronically Co-Signed By: Nayla William PA-C\.br\Date and Time Co-Signed: 10/14/23 13:46 EDT ED Patient Summaryon 024 ED Patient Summary ED Patient Summary [facility] [address] [id number] Patient Discharge Instructions Person Information Name: LEIGHTON ARCINIEGA Age: 77 Years Arrival Date: 10/14/2023 11:36:13 Discharge Diagnosis: Posterior left knee pain Primary Care Physician: Lori Medina MD Provider Information Primary Provider: Vini Quinteros DO Advanced Ux Manager:Nayla William PA-C The exam and treatment you received in the Emergency Department were for an urgent problem and are not intended as complete care. It is important that you follow up with a doctor, nurse practitioner, or physician?s personal assistant for ongoing care. If your symptoms [...] Instructions: With: Address: When: Andrea Espana [address] [phone] Business (1) In 3 days 10/17/2023 With: Address: When: Call to schedule a follow-up appointment with your orthopedic surgeon. Use the Guild as needed for pain along with icing. . If you are unable to get in with your orthopedic surgeon, I have provided a referral for another one. In 3 days 10/17/2023 With: Address: When: Lori Medina [address] [facility], [place] [address] Business (1) In 3 days In the event that this physician does not participate in your insurance network, please consult with your insurance company to find a nearby participating provider. Patient Education Materials: Acute Knee Pain, Adult, Duhj-sk-Mbgl A MESSAGE TO ALL PATIENTS REGARDING OPIOIDS PRESCRIPTION OPIOIDS: WHAT YOU NEED TO KNOW Prescription opioids can be used to help relieve diirbjaa-xu-acrnco pain and are often prescribed following a [...] or yo (more content not included)... Normal [facility] XR Knee Complete 4+ Views Le fton [...] mGy = na DAP = na Normal [facility] Screenson 06-17-2023 Screens [id number] #1.00TIFF Normal [facility] Screens [id number] #1.00TIFF Normal [facility] Ambulatory Visit Summaryon 0 06-16-2023 Ambulatory Visit [...] SANDHU, Mica Johns Where: [facility] Patient Educationon 06-16-19 24 Patient Education Urology [...] these instructions at home: Medicines ? Take voet-ntg-ubyqyhy and prescription medicines only as told by [...] include cig (more content not included)... 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 Denies [...] Information Josep SANDHU, Mica Johns, URL, [facility] [address], [place] [phone] Additional Instructions: Has f/u already scheduled 11/12/23 [...] Amputation, Tonsillectomy. (more content not included)... Normal [facility] Comment on above: Result Comment: Elec tronically Signed By: NATA TA PA-C\.br\Date and Time Signed: 06/16/23 10:56 EDT\.br\Electronically Co-Signed By: Kriss Frankel\.br\Date and Time Co-Signed: 06/16/23 10:48 EDT Screenson 05-10-2023 Screens [id number] #1.00TIFF [facility] Screens [id number] #1.00TIFF [facility] Ambulatory Visit Summaryon 0 05-07-2023 Ambulatory Visit [...] NATA TA PA-C Where: [facility] Normal [address] [place] [address]- \.br\ You Need to Schedule the Following Appointments\.br\ Follow Up with NATA TA PA-C, URL When: \.br\ Comments:\.br\ 1 mos w/ PVR \.br\ Where:\.br\ [address]\.br\ [place] [address]\.br\ [phone]\.br\ Medications\.br\ What How Much When Instructions\.br\ New tadalafil (tadalafil 10 mg Tab) 1 Tablets By Mouth As Directed as needed for for erectile dysfunction Refills: 3 Take one tab 1 hour prior to sexual activity. Do not exceed 20mg in 48hrs. Pickup at [id number]\.br\ New tamsulosin (tamsulosin 0.4 mg Cap) 1 Capsules By Mouth Once a day (in the evening) Refills: 11 Pickup at [id number]\.br\ Unchanged acetaminophen (Tylenol Extra Strength 500 mg [...] or concerns \.br\ Pharmacy Information\.br\ [id number]: [address] [place], [place] [id number] [phone]\.br\ Allergies\.br\ Monopril (Dry cough)\.br\ Strawberries (rash)\.br\ Tomatoes [...] Symptoms of this condition include:\.br\ ? \ [facility] Ambulatory Visit Summary LEIGHTON ARCINIEGA :1945 Visit [...] Schedule the Following Appointments Follow Up with Joesp SANDHU, MIGUELITO Richard, [facility] When: Comments: 6 mos ([facility]) Where: [address] [place] [phone] Medications What How Much When Instructions Unchanged [...] Every da (more content not included)... Normal [facility] Patient Educationon 05-07-19 Patient Education Urology Erectile [...] these instructions at home: Medicines ? Take dglx-mqp-saaotlr and prescription medicines only as told by [...] include cig (more content not included)... 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 AMANDA [...] Information Josep SANDHU, Mica Johns, URL, [facility] [address], [place] [phone] Additional Instructions: 1 mos w/ PVR Patient Education Erectile Dysfunction IKriss, personally scribed for Dr. Car on 05/07/2023 15:06:02. . Documentation recorded by the Kriss chavarria, accurately reflects the services(s) I performed and decisions made by me. Authenticated by Dr. Car on 05/07/2023 16:05:51. Problem List/Past Medical History Ongoing Anticoagulated Arthritis Aspirin marshall (more content not included)... Normal [facility] Comment on above: Result Comment: Elec tronically Signed By: Mica Car MD\.br\Date and Time Signed: 05/07/23 16:06 EST\.br\Electronically Co-Signed By: Kriss Frankel\.br\Date and Time Co-Signed: 05/07/23 15:08 EST Consent for Treatmenton Consent for Treatment [id number] #1.00TIFF Normal [facility] Consent for Treatment [id number] #1.00TIFF Normal [facility] Consent for Treatment [id number] #1.00TIFF Normal [facility] Hct & Hgbon 04-22-2023 Hematocrit (Bld) [Volume fraction] 39.0 % Normal 37.7-49.0 [facility] Comment on above: Performed By: #### 1 [id number], [id number], [id number], [id number] ####[facility] [address] [place] [address] Hemoglobin (Bld) [Mass/Vol] 12.5 g/dL Low 13.5-17.5 [facility] Comment on above: Performed By: #### 1 [id number], 24971835, 24831258, 3702376 ####[facility] [address] [place] [address] Magnesiumon 04-22-2023 Magnesium [Mass/Vol] 1.7 mg/dL Normal 1.3-2.4 [facility] Comment on above: Performed By: #### 1 0930311, 82938592, 78017902, 5120287 ####[facility] [address] [place] [address] PSA Totalon 04-22-2023 PSA Total 1.6 ng/mL Normal 0.1-3.5 [facility] Comment on above: Result Comment: The concentration of PSA determined by different manufacturers can vary due to differences in assay methods and reagent specificity. Values obtained from different assay methods cannot be used interchangeably. The methodology used for this result was chemiluminescence using [employer] Hybritech PSA reagent. Performed By: #### 1 [id number] ####[facility] [address] [place] [address] Physician Orderon 04-22-2023 Physician Order [id number]#1.00TIFF Normal [facility] Physician Order [id number] 28#1.00TIFF Normal [facility] Renal Panelon 04-22-2023 Albumin [Mass/Vol] 3.9 g/dL Normal 3.3-5.0 [facility] Comment on above: Performed By: #### 1 0125477, 99500323, 28475912, 0583707 ####[facility] [address] [place] [address] Anion gap [Moles/Vol] 11 mmol/L Normal 6-16 [facility] Comment on above: Performed By: #### 1 2578691, 72911677, 45235402, 6665238 ####[facility] [address] [place] [address] BUN/Creat Ratio 15 No Units Normal 10-20 [facility] Comment on above: Performed By: #### 1 0079105, 08563515, 16844385, 3549750 ####[facility] [address] [place] [address] Calcium [Mass/Vol] 9.0 mg/dL Normal 8.9-11.1 [facility] Comment on above: Performed By: #### 1 1028408, 23319507, 24650368, 5918135 ####[facility] [address] [place] [address] Chloride [Moles/Vol] 104 mmol/L Normal 101-111 [facility] Comment on above: Performed By: #### 1 4126038, 00265226, 86205973, 1820670 ####[facility] [address] [place] [address] CO2 [Moles/Vol] 29 mmol/L Normal 21-31 [facility] Comment on above: Performed By: #### 1 4896379, 27510327, 87004639, 6748077 ####[facility] [address] [place] [address] Creatinine [Mass/Vol] 1.7 mg/dL High 0.5-1.3 [facility] Comment on above: Performed By: #### 1 4187916, 99077704, 95105482, 4720215 ####[facility] [address] [place] [address] Glucose [Mass/Vol] 144 mg/dL Normal 55-199 [facility] Comment on above: Performed By: #### 1 1098182, 74319005, 99719139, 8338586 ####[facility] [address] [place] [address] Phosphate [Mass/Vol] 3.0 mg/dL Normal 1.9-4.6 [facility] Comment on above: Performed By: #### 1 9741390, 49623297, 06078209, 8654911 ####[facility] [address] [facility] [place] [address] Potassium [Moles/Vol] 3.9 mmol/L Normal 3.5-5.3 [facility] Comment on above: Performed By: #### 1 3800403, 67351419, 66291020, 6496179 ####[facility] [address] [address] Sodium [Moles/Vol] 140 mmol/L Normal 135-145 [facility] Comment on above: Performed By: #### 1 8109605, 69948003, 61195116, 0699388 ####[facility] [address] [place] [address] Urea nitrogen [Mass/Vol] 26 mg/dL High 5-21 [facility] Comment on above: Performed By: #### 1 2947111, 63761415, 57014638, 2325942 ####[facility] [address] [place] [address] U Protein/Creat Ratioon 02-0 U Creatinine 60.9 mg/dL Invalid Interpretation Code [facility] Comment on above: Performed By: #### 1 [id number] ####[facility] [address] [place] [address] U Prot/Creat Ratio 19.90 mg/gm Cr Normal .00-200.00 [facility] Comment on above: Performed By: #### 1 [id number] ####[facility] [address] [place] [address] Ur Total Protein 12.1 mg/dL Invalid Interpretation Code [facility] Comment on above: Performed By: #### 1 [id number] ####[facility] [address] [place] [address] eGFRon 04-22-2023 eGFR 41 mL/min/1.73 m2 Low >=59 [facility] Comment on above: Order Comment: Order added by Discern Expert. Performed By: #### 1 [id number], 38207648, 58399743, 8006710 ####[facility] [address] [place] [address] Office Visit (Cardiology)on 07-01-2022 Follow-up visit Diagnoses/Problems [...] lose weight.; Status:Complete - Retrospective Authorization; Done: [id number] Essential hypertension Renew: Carvedilol 6.25 MG Oral Tablet; Take 1 tablet twice daily Hyperlipidemia Renew: Simvastatin 20 MG Oral Tablet; TAKE 0.5 TABLET Bedtime SocHx: Former smoker Tobacco Use Screening; Status:Complete; Done: [id number] Patient Instructions Please bring all medicines, vitamins, [...] education sheet. Device check as directed per [facility] protocol Chief Complaint LEIGHTON ARCINIEGA is being [...] battery life but I believe it was breakdown mill operator error, and not true battery depletion. [...] TABLET DAILY DIRECTED. Vitamin D3 50 MCG (2000 UT) Oral CapsuleTAKE 1 CAPSULE Daily Allergies [...] 01Jul2022 10: (more content not included)... Normal [employer] Tobacco Screening.on 023 Adult depression screening assessment No [facility] [employer] DO Work Phone: Fall risk assessment b) One or more falls in the last year [facility] [employer] DO Work Phone: Tobacco use status CPHS b) No [facility] [employer] DO Work Phone: CBC AUTO DIFFon 05-28-2022 BASO # 0.0 103/ul Normal 0.0-0.1 [facility] Comment on above: Performed By: #### C BC #### [facility] [address] [address] [address] Susie Hale Basophils/100 WBC (Bld) 0.5 % Normal 0.2-2.0 [facility] Comment on above: Performed By: #### C BC #### [facility] [address] [address] [address] Susie Hale EO # 0.1 103/ul Normal 0.0-0.7 [facility] Comment on above: Performed By: #### C BC #### [facility] [address] [place] [address] Dr. Susie Hale Eosinophils/100 WBC (Bld) 1.8 % Normal 0.9-7.0 [facility] Comment on above: Performed By: #### C BC #### [facility] [address] [place] [address] Dr. Susie Hale Erythrocyte distribution width (RBC) [Ratio] 13.0 % Normal 11.0-15.0 [facility] Comment on above: Performed By: #### C BC #### [facility] [address] [place] [address] Dr. Susie Hale Hematocrit (Bld) [Volume fraction] 35.0 % Critically low 42.0-54.0 [facility] Comment on above: Performed By: #### C BC #### [facility] [address] [place] [address] Dr. Susie Hale Hemoglobin (Bld) [Mass/Vol] 12.2 g/dL Critically low 14.0-18.0 [facility] Comment on above: Performed By: #### C BC #### [facility] [address] [place] [address] Dr. Susie Hale IG # 0.05 10e3/ul Critically high 0.00-0.03 [facility] Comment on above: Performed By: #### C BC #### [facility] [address] [place] [address] Dr. Susie Hale IG % 0.8 % Critically high 0.0-0.5 [facility] Comment on above: Performed By: #### C BC #### [facility] [address] [place] [address] Dr. Susie Hale LYMPH # 1.9 103/ul Normal 1.2-3.8 [facility] Comment on above: Performed By: #### C BC #### [facility] [address] [place] [address] Dr. Susie Hale Lymphocytes/100 WBC (Bld) 28.7 % Normal 20.5-60.0 [facility] Comment on above: Performed By: #### C BC #### [facility] [address] [place] [address] Dr. Susie Hale MANUAL DIFF REQ NO Normal [facility] Comment on above: Performed By: #### C BC #### [facility] [address] [place] [address] Dr. Susie Hale MCH (RBC) [Entitic mass] 32.1 pg Normal 25.9-34.0 [facility] Comment on above: Performed By: #### C BC #### [facility] [address] [place] [address] Dr. Susie Hale MCHC (RBC) [Mass/Vol] 34.9 g/dL Normal 29.9-35.2 [facility] Comment on above: Performed By: #### C BC #### [facility] [address] [place] [address] Dr. Susie Hale MCV (RBC) [Entitic vol] 92.1 fL Normal 80.0-94.0 [facility] Comment on above: Performed By: #### C BC #### [facility] [address] [place] [address] Dr. Susie Hale MONO # 0.7 103/ul Normal 0.3-0.8 [facility] Comment on above: Performed By: #### C BC #### [facility] [address] [place] [address] Dr. Susie Hale Monocytes/100 WBC (Bld) 10.9 % Normal 1.7-12.0 [facility] Comment on above: Performed By: #### C BC #### [facility] [address] [place] [address] Dr. Susie Hale NEUT # 3.7 103/ul Normal 1.4-6.5 [facility] Comment on above: Performed By: #### C BC #### [facility] [address] [place] [address] Dr. Susie Hale Neutrophils/100 WBC (Bld) 57.3 % Normal 43.0-75.0 [facility] Comment on above: Performed By: #### C BC #### [facility] [address] [place] [address] Dr. Susie Hale Platelet mean volume (Bld) [Entitic vol] 8.5 fL Critically low 9.5-13.5 [facility] Comment on above: Performed By: #### C BC #### [facility] [address] [place] [address] Dr. Susie Hale PLT 238 103/ul Normal 150-450 [facility] Comment on above: Performed By: #### C BC #### [facility] [address] [place] [address] Dr. Susie Hale RBC 3.80 106/ul Critically low 4.70-6.10 [facility] Comment on above: Performed By: #### C BC #### [facility] [address] [place] [address] Dr. Susie Hale WBC 6.5 103/ul Normal 4.0-11.0 [facility] Comment on above: Performed By: #### C BC #### [facility] [address] [place] [address] STROKE HEAD WOon [...] MAILE CANO Date: 2022-05-28 18:17 Normal [facility] PROF 14(COMP METB)on 023 Albumin [Mass/Vol] 3.5 g/dL Normal 3.4-5.0 [facility] Comment on above: Performed By: #### C MP #### [facility] [address] [place] [address] Dr. Susie Hale Albumin/Globulin [Mass ratio] 1.1 {ratio} Normal [facility] Comment on above: Performed By: #### C MP #### [facility] [address] [place] [address] Dr. Susie Hale ALP [Catalytic activity/Vol] 87 U/L Normal 46-116 [facility] Comment on above: Performed By: #### C MP #### [facility] [address] [address] [address] Susie Hale ALT [Catalytic activity/Vol] 16 U/L Normal 16-63 [facility] Comment on above: Performed By: #### C MP #### [facility] [address] [place] [address] Dr. Susie Hale Anion gap [Moles/Vol] 10.0 mmol/L Normal [facility] Comment on above: Performed By: #### C MP #### [facility] [address] [address] [address] Susie Hale AST [Catalytic activity/Vol] 14 U/L Critically low 15-37 [facility] Comment on above: Performed By: #### C MP #### [facility] [address] [address] [address] Susie Hale Bilirubin [Mass/Vol] 0.2 mg/dL Normal 0.2-1.0 [facility] Comment on above: Performed By: #### C MP #### [facility] [address] [address] [address] Susie Hale Calcium [Mass/Vol] 8.9 mg/dL Normal 8.5-10.1 [facility] Comment on above: Performed By: #### C MP #### [facility] [address] [address] [address] Susie Hale Chloride [Moles/Vol] 105 mmol/L Normal 98-107 [facility] Comment on above: Performed By: #### C MP #### [facility] [address] [address] [address] Susie Hale CO2 [Moles/Vol] 25.7 mmol/L Normal 21.0-32.0 [facility] Comment on above: Performed By: #### C MP #### [facility] [address] [address] [address] Susie Hale Creatinine [Mass/Vol] 1.87 mg/dL Critically high 0.70-1.30 [facility] Comment on above: Performed By: #### C MP #### [facility] [address] [address] [address] Susie Hale EGFR-AF AZERBAIJANI 43 mL/min/1.73m2 Critically low >=60 [facility] Comment on above: Performed By: #### C MP #### [facility] [address] [address] [address] Susie Hale EGFR-NON AF AZERBAIJANI 35 mL/min/1.73m2 Critically low >=60 [facility] Comment on above: Performed By: #### C MP #### [facility] [address] [address] [address] Susie Hale Globulin (S) [Mass/Vol] 3.2 g/dL Normal [facility] Comment on above: Performed By: #### C MP #### [facility] [address] [address] [address] Susie Hale Glucose [Mass/Vol] 256 mg/dL Critically high 74-106 T [facility] Comment on above: Performed By: #### C MP #### [facility] [address] [address] [address] Susie Hale Potassium [Moles/Vol] 3.7 mmol/L Normal 3.5-5.1 [facility] Comment on above: Performed By: #### C MP #### [facility] [address] [address] [address] Susie Hale Protein [Mass/Vol] 6.7 g/dL Normal 6.4-8.2 [facility] Comment on above: Performed By: #### C MP #### [facility] [address] [place] [address] Dr. Susie Hale Sodium [Moles/Vol] 137 mmol/L Normal 136-145 [facility] Comment on above: Performed By: #### C MP #### [facility] [address] [address] [address] Susie Hale Urea nitrogen [Mass/Vol] 22.0 mg/dL Critically high 7.0-18.0 [facility] Comment on above: Performed By: #### C MP #### [facility] [address] [address] [address] Susie Hale Urea nitrogen/Creatinin e [Mass ratio] 11.8 mg/mg Normal [facility] Comment on above: Performed By: #### C MP #### [facility] [address] [place] [address] Dr. Susie Hale Office Visit (Cardiology)on 12-16-2021 [...] in adult Healthy Weight Tips; Status:Complete; Done: [id number] Some eating tips that can help you lose weight.; Status:Complete; Done: [id number] Essential hypertension Renew: Carvedilol 6.25 MG Oral Tablet; Take 1 tablet twice daily Hyperlipidemia Renew: Simvastatin 20 MG Oral Tablet; TAKE 0.5 TABLET Bedtime SocHx: Former smoker Tobacco Use Screening; Status:Complete; Done: [id number] Unlinked Stop: Aspirin 325 MG Oral Tablet [...] your visit. Device check as directed per [facility] protocol Follow up in 6-9 months Chief [...] TABLET DAILY DIRECTED. Vitamin D3 50 MCG (2000 UT) Oral CapsuleTAKE 1 CAPSULE Daily Allergies [...] Screening.on 022 Adult depression screening assessment No -[facility] 600 DO Work Phone: Fall risk assessment a) No falls within the last year [facility] 600 DO Work Phone: Tobacco use status CP b) No -[facility] 600 DO Work Phone: Tobacco Screening.on 021 Fall risk assessment a) No falls within the last year [facility] [facility] 250 DO Work Phone: Tobacco use status [facility] b) No -[facility] [facility] 250 DO Work Phone: Vital Signs Date Time Vital Sign Value Performing Clinician Faci lity 03-01-2024 11:12-0500 Body height 177.8 cm Osvaldo Dickinson MD Work Phone: [facility] 03-01-2024 11:12-0500 Body mass index (BMI) [Ratio] 30.13 kg/m2 Osvaldo Dickinson MD Work Phone: [facility] 03-01-2024 11:12-0500 Body weight 95.25 kg Osvaldo Dickinson MD Work Phone: [facility] 03-01-2024 11:12-0500 Diastolic blood pressure 54 mm[Hg] Osvaldo Dickinson MD Work Phone: [facility] 03-01-2024 11:12-0500 Heart rate 71 /min Osvaldo Dickinson MD Work Phone: [facility] 03-01-2024 11:12-0500 Systolic blood pressure 114 mm[Hg] Osvaldo Dickinson MD Work Phone: [facility] 12-14-2023 13:17-0400 Diastolic blood pressure 70 mm[Hg] Dank Robert DO Work Phone: [facility] 12-14-2023 13:17-0400 Heart rate 68 /min Dank Robert DO Work Phone: [facility] 12-14-2023 13:17-0400 SaO2% (BldA) [Mass fraction] 97 % Dank Robert DO Work Phone: [facility] 12-14-2023 13:17-0400 Systolic blood pressure 152 mm[Hg] Dank Robert DO Work Phone: [facility] 08-25-2023 12:12-0400 Body height 177.8 cm Varghese Caal MD Work Phone: [facility] 08-25-2023 12:12-0400 Body mass index (BMI) [Ratio] 33.43 kg/m2 Varghese Caal MD Work Phone: [facility] 08-25-2023 12:12-0400 Body weight 105.69 kg Varghese Caal MD Work Phone: [facility] 08-25-2023 12:12-0400 Diastolic blood pressure 54 mm[Hg] Varghese Caal MD Work Phone: [facility] 08-25-2023 12:12-0400 Heart rate 60 /min Varghese Caal MD Work Phone: [facility] 08-25-2023 12:12-0400 Systolic blood pressure 126 mm[Hg] Varghese Caal MD Work Phone: [facility] 02-10-2023 11:37-0500 Body height 177.8 cm Varghese Caal MD Work Phone: [facility] 02-10-2023 11:37-0500 Body mass index (BMI) [Ratio] 32.28 kg/m2 Varghese Caal MD Work Phone: [facility] 02-10-2023 11:37-0500 Body weight 102.06 kg Varghese Caal MD Work Phone: [facility] 02-10-2023 11:37-0500 Diastolic blood pressure 58 mm[Hg] Varghese Caal MD Work Phone: [facility] 02-10-2023 11:37-0500 Heart rate 63 /min Varghese Caal MD Work Phone: [facility] 02-10-2023 11:37-0500 Systolic blood pressure 120 mm[Hg] Varghese Caal MD Work Phone: [facility] 07-01-2022 10:54-0400 Body height 177.8 cm Andrea Espinoza Work Phone: [facility] [employer] 600 DO Work Phone: 07-01-2022 10:54-0400 Body mass index (BMI) [Ratio] 32.71 kg/m2 Andrea Houstonzulay Work Phone: [facility] [place] 600 DO Work Phone: 07-01-2022 10:54-0400 Body surface area Derived from formula 2.21 m2 Andrea Espinoza Work Phone: [facility] [place] 600 DO Work Phone: 07-01-2022 10:54-0400 Body weight 103.42 kg Andrea Espinoza Work Phone: [facility] [place] 600 DO Work Phone: 07-01-2022 10:54-0400 Diastolic blood pressure 64 mm[Hg] Andrea Espinoza Work Phone: [facility] [employer] 600 DO Work Phone: 07-01-2022 10:54-0400 Heart rate 72 /min Andrea Espinoza Work Phone: [facility] 600 DO Work Phone: 07-01-2022 10:54-0400 Systolic blood pressure 118 mm[Hg] Andrea Espinoza Work Phone: [facility] 600 DO Work Phone: 12-16-2021 11:08-0400 Body height 177.8 cm Andrea Espinoza Work Phone: [facility] [place] 600 DO Work Phone: 12-16-2021 11:08-0400 Body mass index (BMI) [Ratio] 33.86 kg/m2 Andrea Espinoza Work Phone: [facility] [place] 600 DO Work Phone: 12-16-2021 11:08-0400 Body surface area Derived from formula 2.24 m2 Andrea Espinoza Work Phone: [facility] [place] 600 DO Work Phone: 12-16-2021 11:08-0400 Body weight 107.05 kg Andrea Espinoza Work Phone: [facility] 600 DO Work Phone: 12-16-2021 11:08-0400 Diastolic blood pressure 64 mm[Hg] Andrea Houstonh Work Phone: [facility] 600 DO Work Phone: 12-16-2021 11:08-0400 Heart rate 72 /min Andrea Houstonh Work Phone: [facility] 600 DO Work Phone: 12-16-2021 11:08-0400 Systolic blood pressure 132 mm[Hg] Andrea Houstonh Work Phone: [facility] 600 DO Work Phone: 01-22-2021 14:36-0400 Body height 177.8 cm Andrea Espinoza Work Phone: [facility] 250 DO Work Phone: 01-22-2021 14:36-0400 Body mass index (BMI) [Ratio] 34.01 kg/m2 Andrea Espinoza Work Phone: [facility] 250 DO Work Phone: 01-22-2021 14:36-0400 Body surface area Derived from formula 2.24 m2 Andrea Espinoza Work Phone: [facility] 250 DO Work Phone: 01-22-2021 14:36-0400 Body weight 107.5 kg Andrea Espinoza Work Phone: [facility] 250 DO Work Phone: 01-22-2021 14:36-0400 Diastolic blood pressure 54 mm[Hg] Andrea Espinoza Work Phone: [facility] 250 DO Work Phone: 01-22-2021 14:36-0400 Heart rate 76 /min Andrea Espinoza Work Phone: [facility] 250 DO Work Phone: 01-22-2021 14:36-0400 Systolic blood pressure 104 mm[Hg] Andrea Espinoza Work Phone: [facility] 250 DO Work Phone: Encounters Encounter Date Encounter Type Care Provider Facility Start: 04-06-2024 End: 04-06-2024 ambulatory Mica Car Facility:[facility] Start: 03-28-2024 End: 03-28-2024 ambulatory Benton Vasquez [facility] Work Phone: Start: 03-28-2024 End: 03-28-2024 Departed Referred Benton Vasquez [facility] Start: 03-24-2024 End: 03-24-2024 ambulatory Mica Car [facility] Start: 03-11-2024 End: 03-11-2024 ambulatory Benton Vasquez Facility:[facility] Start: 03-11-2024 End: 03-11-2024 Departed Referred Benton Vasquez [facility] Start: 03-02-2024 End: 03-02-2024 ambulatory NATA TA Facility:[facility] Start: 03-01-2024 End: 03-01-2024 Office outpatient visit 25 minutes Osvaldo Dickinson MD Work Phone: [facility] Comment on above: Paroxysmal atrial fi brillation (Multi) (Primary Dx); Sick sinus syndrome (Multi); Pacemaker; Essential hypertension; Cardiomyopathy, unspecified type (Multi); Mixed hyperlipidemia; Stage 4 chronic kidney disease (Multi); Non-smoker; BMI 30.0-30.9,adult Start: 03-01-2024 End: 03-01-2024 ambulatory [facility] Start: 02-19-2024 End: 02-19-2024 Emergency department patient visit LORI Vallejo Fan [facility] Start: 02-18-2024 End: 02-18-2024 ambulatory Mica Car Facility:[facility] Start: 02-14-2024 End: 02-14-2024 ambulatory Mica Car Facility[facility] Start: 01-31-2024 End: 01-31-2024 ambulatory Anna Sr Facility:[facility] Start: 01-24-2024 End: 01-24-2024 Emergency department patient visit BOBO BRENNER [facility] Start: 01-17-2024 End: 01-17-2024 Office outpatient visit 25 minutes Blanca Alonso MD Work Phone: [facility] Comment on above: Other atopic dermati tis (Primary Dx); Seborrheic keratosis; Lentigines; History of SCC (squamous cell carcinoma) of skin Start: 01-17-2024 End: 01-17-2024 ambulatory BLANCA COSBYI Not Available Start: 12-27-2023 End: 12-27-2023 ambulatory Mica Car Facility[facility] Start: 12-14-2023 End: 12-14-2023 Bamboo flowsheet Dankjameson Jones DO Work Phone: [facility] Start: 12-14-2023 End: 12-14-2023 Bamboo flowsheet Dank Robert DO Work Phone: [facility] Start: 12-14-2023 End: 12-14-2023 Office outpatient visit 25 minutes Dank Jones DO Work Phone: [facility] Comment on above: VIRGILIO (obstructive sle ep apnea) (Primary Dx); Hypersomnia; PLMD (periodic limb movement disorder); Obesity due to excess calories, unspecified classification, unspecified whether serious comorbidity present; Snoring Start: 12-14-2023 End: 12-14-2023 ambulatory DANK JONES Not Available Start: 12-09-2023 End: 12-09-2023 ambulatory Varghese Caal Facility[facility] Start: 11-12-2023 End: 11-12-2023 ambulatory Mica Car Facility:[facility] Start: 10-14-2023 End: 10-14-2023 Emergency department patient visit Vini Quinteros Facility[facility] Start: 10-14-2023 ambulatory Barb Elkins cility:[facility] Start: 08-31-2023 End: 08-31-2023 ambulatory BLANCA ALONSO Not Available Start: 08-25-2023 End: 08-25-2023 Office outpatient visit 25 minutes Varghese Caal MD Work Phone: [facility] Comment on above: Essential hypertensi on (Primary Dx); Sick sinus syndrome (Multi); Mixed hyperlipidemia; Paroxysmal atrial fibrillation (Multi); Dilated cardiomyopathy (Multi); Pacemaker; BMI 33.0-33.9,adult Start: 08-25-2023 End: 08-25-2023 [facility] Start: 08-10-2023 End: 08-10-2023 ambulatory BLANCA A PETITTI Not Available Start: 06-16-2023 End: 06-16-2023 ambulatory NAPOLEON TA Facility: [place] Start: 05-07-2023 End: 05-07-2023 ambulatory Mica Car Facility:[facility] Start: 04-22-2023 End: 04-22-2023 ambulatory Varghese Willett [facility] Facility[facility] Start: 03-19-2023 End: 03-19-2023 ambulatory BLANCA PETITTI Not Available Start: 03-05-2023 End: 03-05-2023 ambulatory BLANCA A PETITTI Not Available Start: 02-10-2023 End: 02-10-2023 Office outpatient visit 25 minutes Varghese Caal MD Work Phone: [facility] Comment on above: Sick sinus syndrome (CMS/HCC) (Primary Dx); Mobitz type II atrioventricular block; Pacemaker; Essential hypertension; Dilated cardiomyopathy (CMS/HCC); Paroxysmal atrial fibrillation (CMS/HCC) Start: 10-22-[address] Andrea Espinoza Facility: Start: 07-01-2022 Office outpatient vi sit 25 minutes Andrea Espinoza Work Phone: [facility] 600 DO Work Phone: Start: 07-01-[address] Varghese Caal II Facility: Start: 05-28-2022 End: 05-28-[address] TRINO Lange Facility:[facility] Start: 05-14-2022 End: 05-15-2022 ambulatory MARIXA ROY Facility: Start: 04-23-[address] Andrea Espinoza Facility: Start: 12-31-2021 Rx Renewal Andrea Espinoza Work Phone: [facility] 250 DO Work Phone: Start: 12-16-2021 Office outpatient vi sit 25 minutes Andrea Espinoza Work Phone: [facility] 600 DO Work Phone: Start: 12-16-[address] [facility] Start: 01-22-2021 Office outpatient vi sit 25 minutes Andrea Espinoza Work Phone: [facility] 250 DO Work Phone: Procedures Date Procedure Procedure Detail Performing Clinician Start: 03-11-2024 Urine culture Benton prajapati DO Start: 03-01-2024 Ecg routine ecg w/le ast 12 lds w/i&r Osvaldo Dickinson MD Work Phone: Colonoscopy Andrea Espinoza Work Phone: Comment on above: [id number]; Insertion of pacemak er pulse generator Andrea Espinoza Work Phone: Operation on nose Andrea Amanda Suggsh Work Phone: Operative procedure on hand Andrea Espinoza Work Phone: Tonsillectomy and adenoidectomy Andrea Espinoza Work Phone: Plan of Treatment Date Care Activity Detail Author Start: 12-09-2032 DTaP/Tdap/Td Vaccine s (2 - Td or Tdap) DTaP/Tdap/Td Vaccines (2 - Td or Tdap) [facility] Start: 01-25-2025 End: 01-25-2025 Patient encounter procedure 01/25/2025 1:05 PM EST Office Visit [facility] [address] [place] [address] Blanca Alonso MD [address] [place] [address] [facility] Start: 12-12-2024 End: 12-12-2024 Patient encounter procedure 12/12/2024 1:00 PM EDT Office Visit [facility] [address] [place] [address] Rox Cervantes NP [address] [place], [place] [facility] Start: 11-28-2024 Glaucoma screening Diabetes: R etinopathy Screening [facility] Start: 11-07-2024 End: 11-07-2024 Patient encounter procedure 11/07/2024 10:30 AM EDT Office Visit [address] [place] [address] Osvaldo Dickinson MD [address] [facility] [address] [place] [address] [facility] Start: 03-28-2024 Urine culture [facility] Start: 03-28-2024 Bacteria identified in Urine by Culture Urine Culture [facility] Start: 03-01-2024 End: 03-01-2024 Patient encounter procedure 03/01/2024 11:00 AM EST Office Visit [address] [place] [address] Osvaldo Dickinson MD [address] [facility] [address] [place] [address] [facility] Start: 01-17-2024 End: 01-17-2024 Patient encounter procedure 01/17/2024 3:15 PM EDT Office Visit [facility] [address] [place] [address] Blanca Alonso MD [address] [place] [address] [facility] Start: 12-14-2023 End: 12-14-2023 Patient encounter procedure 12/14/2023 1:30 PM EDT Office Visit [facility] [address] [place] [address] Dank Jones DO [address] [place] [address] Arrived [facility] Comment on above: Arrived Start: 12-01-2023 Glaucoma screening Diabetes: R etinopathy Screening [facility] Start: 08-25-2023 End: 08-25-2023 Patient encounter procedure 08/25/2023 11:40 AM EDT Office Visit [facility] [address] [place] [id number] Varghese Caal MD [address] [facility] [address] [place] [address] [facility] Start: 06-05-2023 COVID-19 Vaccine ( season) COVID-19 Vaccine ( season) [facility] Start: 04-01-2023 COVID-19 Vaccine (6 - Moderna series) COVID-19 Vaccine (6 - Moderna series) [facility] Start: 02-10-2023 FUV, Provider: Varghese Caal, Status: Pen, Time: 11:30 AM FUV, Provider: Varghese Caal, Status: Pen, Time: 11:30 AM [facility] 600 DO Work Phone: Start: 07-01-2022 FUV, Provider: Varghese Caal, Status: Pen, Time: 10:40 AM FUV, Provider: Varghese Caal, Status: Pen, Time: 10:40 AM [facility] 600 DO Work Phone: Start: 09-10-2021 FUV, Provider: Varghese Caal, Status: Pen, Time: 2:30 PM FUV, Provider: Varghese Caal, Status: Pen, Time: 2:30 PM [facility] 250 DO Work Phone: Start: 2020 RSV High Risk: (Elde rly (60+) or Population) (1 - 1-dose 75+ series) RSV High Risk: (Elderly (60+) or Population) (1 - 1-dose 75+ series) [facility] Start: 05-09-2020 Echocardiography Echocardiogram [facility] Start: 2005 RSV patient s and/or patients aged 60+ years (1 - 1-dose 60+ series) RSV patients and/or patients aged 60+ years (1 - 1-dose 60+ series) [facility] Start: 11-26-1995 Zoster Vaccines (1 of 2) Zoste r Vaccines (1 of 2) [facility] Start: 1964 Urine screening for protein Diabetes: Urine Protein Screening [facility] Start: 11-26-1963 Hepatitis C screening Hepatitis C Sc reening [facility] Start: 11-26-1955 Diabetic foot examination Diabetes: Foot Exam [facility] Start: 11-26-1955 Glaucoma screening Diabetes: R etinopathy Screening [facility] Start: 1945 Creatinine measurement Creatinine Le sarah [facility] Start: 1945 Hemoglobin A1c measurement Jennifer betes: Hemoglobin A1C [facility] Start: 1945 Lipid panel Lipid Panel [facility] Start: 1945 Medicare Annual Well ness Visit Medicare Annual Wellness Visit (AWV) [facility] Start: 1945 Potassium measurement Potassium Leve l [facility] Immunizations Immunization Date Immunization Notes Care Provider Severo sneed 01-14-2022 Fluad Quadrivalent 0 .5 ML Intramuscular Prefilled Syringe Andrea Espinoza Work Phone: [facility] 600 DO Work Phone: 01-14-2022 Pfizer COVID-19 Vac Bivalent 30 MCG/0.3ML Intramuscular Suspension Andrea Patel Hackermeteryann Work Phone: [facility] 600 DO Work Phone: 09-03-2021 pneumococcal conjuga te vaccine, 13 valent Dank Jones DO Work Phone: [facility] 02-15-2021 Moderna COVID-19 Vac cine 100 MCG/0.5ML Intramuscular Suspension Andrea Espinoza Work Phone: [facility] 600 DO Work Phone: 01-30-2021 influenza virus vacc ine, unspecified formulation Andrea Espinoza Work Phone: [facility] 600 DO Work Phone: 11-28-2020 influenza, high dose seasonal, preservative-free Andrea Espinoza Work Phone: [facility] 250 DO Work Phone: Comment on above: Series: 06-20-2020 Moderna COVID-19 Vac cine 100 MCG/0.5ML Intramuscular Suspension Andrea Espinoza Work Phone: [facility] 600 DO Work Phone: 05-20-2020 Moderna COVID-19 Vac cine 100 MCG/0.5ML Intramuscular Suspension Andrea Espinoza Work Phone: [facility] 250 DO Work Phone: Comment on above: Series: 04-25-2020 Moderna COVID-19 Vac cine 100 MCG/0.5ML Intramuscular Suspension Andrea Espinoza Work Phone: [facility] 250 DO Work Phone: Comment on above: Series: 12-21-2019 influenza virus vacc ine, unspecified formulation Andrea Patel Pedroemmazulay Work Phone: [facility] 600 DO Work Phone: 12-20-2018 influenza, high dose seasonal, preservative-free Andrea Patel Pedroemmazulay Work Phone: [facility] 02-19-2018 influenza virus vacc ine, unspecified formulation Andrea Patel Pedroyann Work Phone: [facility] 600 DO Work Phone: 02-19-2018 pneumococcal polysaccharide vaccine, 23 valent Andrea Espinoza Work Phone: [facility] 250 DO Work Phone: Comment on above: Series: 02-19-2018 pneumococcal vaccine , unspecified formulation Andrea Espinoza Work Phone: [facility] 02-18-2017 Influenza, injectabl e, Madin Lakisha Canine Kidney, preservative free, quadrivalent Andrea Espinoza Work Phone: [facility] 600 DO Work Phone: 11-24-2016 influenza, high dose seasonal, preservative-free Andrea Espinoza Work Phone: [facility] 600 DO Work Phone: 12-21-2015 pneumococcal conjuga te vaccine, 13 valent Andrea Espinoza Work Phone: [facility] 250 DO Work Phone: Comment on above: Series: Payers Date Payer Category Payer Self-pay 2022 Medicare [id number] 2022 Department of [facility] e ( and others) [id number] 2022 () [id number] 2022 [employer] Life (TFL) [employer] [id number] 2022 [employer] ( and others) [id number] 2010 Medicare [id number] 1959 [employer] ( and others) [id number] 1959 Medicare [id number] 1945 Unknown [id number] 2.16840.1.153331.3.579. 2.593 1945 Unknown [id number] 2.16840.1.581485.3.579. 2.593 1945 Unknown [id number] 2.16.840.1.061458.3.579. 2.356 1945 Unknown [id number] 2.840.1.296194.3.579. 2.356 1945 Unknown [id number] 2.16840.1.579128.3.579. 2.356 1945 Unknown [id number] 2.16.840.1.135920.3.579. 2.356 1945 Unknown [id number] 2.16.840.1.199534.3.579. 2.727 1945 Unknown [id number] 2.16.840.1.410122.3.579. 2.727 1945 Unknown [id number] 2.16.840.1.068478.3.579. 2.727 1945 Unknown [id number] 2.16.840.1.736495.3.579. 2.727 1945 Unknown [id number] 2.16.840.1.527868.3.579. 2.727 1945 Unknown [id number] 2.16.840.1.914367.3.579. 2.727 1945 Unknown [id number] 2.16.840.1.436884.3.579. 2.72 1945 Unknown [id number] 2.16.840.1.269324.3.579. 2.727 1945 Unknown [id number] 2.16.840.1.982157.3.579. 2.125 1945 Unknown [id number] 2.16.840.1.865372.3.579. 2.1259 1945 Unknown [id number] 2.16840.1.932775.3.579. 2.125 1945 Unknown [id number] 2.16.840.1.355111.3.579. 2.125 1945 Unknown [id number] 2.16.840.1.206647.3.579. 2.125 1945 Unknown [id number] 2.16.840.1.448701.3.579. 2.125 1945 Unknown [id number] 2.16.840.1.480978.3.579. 2.1286 1945 Unknown [id number] 2.16.840.1.121882.3.579. 2.1286 1945 Unknown [id number] 2.16.840.1.848471.3.579. 2.1244 1945 Unknown [id number] 2.16.840.1.589916.3.579. 2.1244 1945 Unknown [id number] 2.16.840.1.124724.3.579. 2.727 1945 Unknown [id number] 2.16.840.1.613362.3.579. 2.727 1945 Unknown [id number] 2.16.840.1.669148.3.579. 2.727 1945 Unknown [id number] 2.16.840.1.569744.3.579. 2.727 1945 Unknown [id number] 2.16.840.1.153386.3.579. 2.727 1945 Unknown [id number] 2.16.840.1.692491.3.579. 2.727 1945 Unknown [id number] 2.16.840.1.440768.3.579. 2.727 1945 Unknown [id number] 2.16.840.1.788414.3.579. 2.727 1945 Unknown [id number] 2.16.840.1.956316.3.579. 2.727 Unknown Unknown [id number] 2.16.840.1.174382.3.579. 2.531 Unknown [id number] 2.16.840.1.506943.3.579. 2.531 Social History Date Type Detail Facility Start: 02-10-2023 End: 12-14-2023 No illicit drug use No illicit drug use [facility] 250 DO Work Phone: Comment on above: quit , 1 PPD; Start: 02-10-2023 End: 08-25-2023 Tobacco smoking status NHIS Ex-smoker [facility] Work Phone: End: 03-22-1992 History of tobacco use Current smoker [facility] Work Phone: End: 03-22-1992 History of tobacco use Cigarette Smoker [facility] Work Phone: Start: 10-11-2022 End: 02-10-2023 Tobacco use and exposure Smokeless tobacco non-user [facility] Work Phone: Start: 02-10-2023 End: 12-14-2023 Alcohol intake Lifetime non-drinker (finding) [facility] Work Phone: Start: 02-10-2023 End: 12-14-2023 Tobacco use panel [facility] Work Phone: Start: 1945 [facility] Start: 01-31-2023 End: 03-01-2024 Exposure to SARS-CoV-2 (event) Not sure [facility] Start: 10-11-2022 [facility] Work Phone: Start: 03-30-2024 Sex Patient sex un known (finding) [facility] Start: 1945 Sex Assigned At Male [facility] Clinical Notes 05-14-2022 to 03-02-2024 Osvaldo [...] these instructions at home: Medicines ??? Take uzcm-lxl-jueljea and prescription medicines only as told by [...] provider. Document Revised: 11/27/2020 Document Reviewed: 11/27/2020 [employer] Patient Education ? 2023 disco volante. 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 I will see him back [...] discussion and plan. documented in this encounter [facility] Work Phone: 03-01-2024 Instructions Betzaida Denney [...] instructions on exercise. documented in this encounter [facility] Work Phone: 02-14-2024 Note Patient Education [...] to the c (more content not included)... [facility] 01-31-2024 Note Patient Education Urology Acute Urinary [...] these instructions at home: Medicines ??? Take ibyt-fyp-rdpkert and prescription medicines only as told by [...] provider. Document Revised: 11/27/2020 Document Reviewed: 11/27/2020 [employer] Patient Education ? 2023 disco volante. Benign Prostatic Hyperplasia Benign prostatic hyperplasia (BPH) is an enlarged prostate gland that is caused by the normal aging proc (more content not included)... 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 and he [...] Visit: 1 year documented in this encounter [facility] 12-27-2023 Note Progress Note-Asaf tapia Patient: [...] day(s), # 6 tab(s), Refills(s) 0, Pharmacy: [facility] #[id number], 177, cm, 12/27/23 11:02:00 EDT, Height/Length Dosing, 104, kg, 12/27/23 11:02:00 EDT, Weight Dosing Guild 325 mg-5 mg oral tablet: 1 tab(s), Oral, q6hr for pain, 4 tab(s), Refill(s) 0, Take 1 tablet an hour before procedure, post procedure prn, [facility] #[id number], 177, cm, 12/27/23 11:02:00 EDT, Height/Length Dosing, 104, kg, 12/27/23 11:02:00 EDT, Weight Dosing sildenafil 100 mg Tab: 100 mg = 1 tab(s), Oral, As Directed, PRN for erectile dysfunction, Take one tab 1 hour prior to sexual activity., # 30 tab(s), Refills(s) 3, [facility]acy: [facility] #[id number], 177.8, cm, 06/16/23 10:18:00 EDT, Height/Length Dosing, 104.8, kg, 06/16/23 10:18:... terazosin 10 mg Cap: 10 mg = 1 cap(s), Oral, Once a day (at bedtime), # 90 cap(s), Refills(s) 3, Pharmacy: [facility], 177, cm, 12/27/23 11:02:00 EDT, Height/Length Dosing, 104, kg, 12/27/23 11:02:00 EDT, Weight Dosing traMADOL 50 mg Tab: 50 mg = 1 tab(s), Oral, q6hr, Take as needed for pain., # 6 tab(s), Refills(s) 0, Pharmacy: [facility] #[id number], 177.8, cm, 11/12/23 15:35:00 EDT, Height/Length Dosing, [...] Plan: Diagnosis: Prostate hyperplasia with urinary obstruction (VTB65-ZS N40.1, Discharge, Medical), Feeling of incomplete bladder emptying (EIZ85-PS R39.14, Working, Medical), Anticoagulated (BTC84-FR Z79.01, Discharge, Medical). 78 yo male here [...] and Valium prior to procedure. Will need company driver. The procedural risks, benefits, details, and treatment alternatives have been discussed with the patient. These include bleeding, infection, continued problems urinating, increased frequency with urgency during the healing process, painful urination, need for indwelling cathete (more content not included)... [facility] Comment on above: Result Comment: Elec tronically Signed By: Josep SANDHU, Mica M.\.br\Date and Time Signed: 12/27/23 12:43 EDT 12-27-2023 [...] you have a fever over 100 degrees. [facility] 12-14-2023 History of Present illness Narrative Images [...] Actinic keratosis COPD (chronic obstructive pulmonary disease) ([facility]) Coronary heart disease ([facility]) Diabetes mellitus, type 2 ([facility]) HTN (hypertension) ([facility]) Hx of psoriasis Kidney disease PR (myocardial infarction) ([facility]) VIRGILIO (obstructive sleep apnea) Pacemaker Squamous [...] was counselled on the risk of stroke, PR, and sudden with VIRGILIO, along with the [...] Return to clinic: documented in this encounter [facility] 11-12-2023 Note Patient Education Urology Benign [...] Follow these instructions at home: ? Take fnij-wpb-sfmihqn and prescription medicines only as told by [...] develop side effec (more content not included)... [facility] 10-14-2023 Note ED Patient Education Note Orthopedics [...] under your knee. General instructions ? Take tiuc-pja-lzkxqcz and prescription medicines only as told by [...] provider. Document Revised: 08/21/2020 Document Reviewed: 08/21/2020 [employer] Patient Education ? 2022 disco volante. [facility] 08-25-2023 History of Present illness Narrative Subjective [...] Scribe Attestation By signing my name below, I, Alberta Soto LPN , Aleksanderibe attest that this documentation has been prepared [...] discussion and plan. documented in this encounter [facility] Work Phone: 08-25-2023 Instructions Jo Ann [...] of your visit. documented in this encounter [facility] Work Phone: 02-10-2023 History of Present [...] recent pacemaker checks. documented in this encounter [facility] Work Phone: 02-10-2023 Instructions Alize James [...] up per routine documented in this encounter [facility] Work Phone: 05-14-2022 Note PROCEDURE: XR [...] by: JOE DU Date: 2022-05-14 18:40 [facility] Evaluation note Diagnosis Sick sinus syndrome (CMS/HCC)- Primary Sinoatrial node dysfunction Mobitz type II atrioventricular block Mobitz (type) II atrioventricular block Pacemaker Cardiac pacemaker in situ Essential hypertension Unspecified essential hypertension Dilated cardiomyopathy (CMS/HCC) Other primary cardiomyopathies Paroxysmal atrial fibrillation (CMS/HCC) Atrial fibrillation documented in this encounter [facility] Work Phone: Evaluation note* Diagnosis Essential hypertension- Primary Unspecified essential hypertension Sick sinus syndrome (Multi) Sinoatrial node dysfunction Mixed hyperlipidemia Paroxysmal atrial fibrillation (Multi) Atrial fibrillation Dilated cardiomyopathy (Multi) Other primary cardiomyopathies Pacemaker Cardiac pacemaker in situ BMI 33.0-33.9,adult documented in this encounter [facility] Work Phone: Evaluation note* Diagnosis Other [...] Non-smoker BMI 30.0-30.9,adult documented in this encounter [facility] Work Phone: Evaluation note* Diagnosis VIRGILIO (obstructive sleep apnea)- Primary Obstructive sleep apnea (adult) (pediatric) Hypersomnia Hypersomnia, unspecified PLMD (periodic limb movement disorder) Periodic limb movement disorder Obesity due to excess calories, unspecified classification, unspecified whether serious comorbidity present Snoring Other dyspnea and respiratory abnormality documented in this [facility] Work Phone: History of Present illness NarrativePatient [...] on the basis of his improve lifestyle modification.[facility] 250 DO Work Phone: History of Present [...] the merits of diet and weight loss. 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 -[facility] 600 DO Work Phone: Reason for referral (narrative)* Consultation (Routine) - Authorized Specialty Diagnoses / Procedures Referred By Contac t Referred To Contact Cardiology Diagnoses Sick sinus syndrome (CMS/HCC) Procedures Follow Up In Cardiology Varghese Caal MD [address] [place] [address], [address] [address] Varghese Caal MD [address] [place] [address], [address] [address] Referral ID Status Reason Start Date Expiration Date V isits Requested Visits Authorized [id number] Authorized 02/10/2023 02/10/2024 1 1 [facility] Work Phone: Reason for referral (narrative)* Consultation (Routine) - Authorized Specialty Diagnoses / Procedures Referred By Contac t Referred To Contact Cardiology Diagnoses Sick sinus syndrome (Multi) Procedures Follow Up In Cardiology Varghese Caal MD [address] [place] [address], [address] [address] Osvaldo Dickinson MD [address] [place] [address], [address] [address] Referral ID Status Reason Start Date Expiration Date V isits Requested Visits Authorized [id number] Authorized 08/25/2023 08/24/2024 1 1 [facility] Work Phone: Chief Complaint LEIGHTON ARCINIEGA [...] and content) DATE CREATED AUTHOR 06/01/2022 [facility] DATE CREATED AUTHOR AUTHOR'S ORGANIZ ATION 07/03/2022 [employer] DATE CREATED AUTHOR AUTHOR'S ORGANIZ ATION 11/05/2022 [facility] DATE CREATED AUTHOR AUTHOR'S ORGANIZ ATION 11/14/2023 [facility] DATE CREATED AUTHOR AUTHOR'S ORGANIZ ATION 01/18/2024 [facility] dical [facility] DATE CREATED AUTHOR AUTHOR'S ORGANIZ ATION 02/21/2024 [facility] DATE CREATED AUTHOR AUTHOR'S ORGANIZ ATION 03/04/[address] [facility] DATE CREATED AUTHOR AUTHOR'S ORGANIZ ATION 04/02/2024 [facility] DATE CREATED AUTHOR AUTHOR'S ORGANIZ ATION 04/04/2024 [facility] DATE CREATED AUTHOR AUTHOR'S ORGANIZ ATION 04/07/2024 [facility] Reason for Visit (unrecogniz ed section and content) Reason Comments Follow-up 6-9mo Reason Comments Follow-up 6-9 months Specialty Diagnoses / Procedures Referred By Contac t Referred To Contact Cardiology Diagnoses Sick sinus syndrome (Multi) Procedures Follow Up In Cardiology Varghese Caal MD [address] [place] [address], [address] [address] Varghese Caal MD [address] [place] [address], [address] [address] Referral ID Status Reason Start Date Expiration Date V isits Requested Visits Authorized [id number] Authorized 02/10/2023 02/10/2024 1 1 Reason Comments Skin Check Follow-up Reason Comments Follow-up 6-9 months Specialty Diagnoses / Procedures Referred By Contac t Referred To Contact Cardiology Diagnoses Sick sinus syndrome (Multi) Procedures Follow Up In Cardiology Varghese Caal MD Traboulssi, MD Osvaldo [address] [place] [address] 2, [address] [address] Phone: tel: fax: Referral ID Status Reason Start Date Expiration Date V isits Requested Visits Authorized [id number] Authorized 08/25/2023 08/24/2024 1 1 Reason Comments Sleep Apnea Care Teams (unrecognized sec tion and content) [employer] Relationship Specialty Start Date End Date Andrea Espinoza DO [address] [place] [address] [place] [address] PCP - General 03/22/99 [employer] Relationship Specialty Start Date End Date Andrea Espinoza DO [address] [place] [address] PCP - General 03/22/99 [employer] Relationship Specialty Start Date End Date Lori Medina MD [address] [facility] [place] [address] PCP - General Family Medicine 10/09/22 [employer] Relationship Specialty Start Date End Date Andrea Espinoza DO [address] [place] [address] PCP - General 03/22/99 [employer] Relationship Specialty Start Date End Date Lori Medina MD [address] [place] [address] PCP - General Family Medicine 10/09/22 [employer] Relationship Specialty Start Date End Date Lori Medina MD [address] [facility] [place] [address] PCP - General Family Medicine 10/09/22 Team [...] BE BASED ON THE PRIMARY CLINICAL RECORDS. [facility] Hospital[facility]. provides no warranty or guarantee of the accuracy or completeness of information in this document.
--- NOTE | 2024-04-08 17:51 | ED.GENADUL1 ---
HPI HPI - General Adult General Chief complaint: Urogenital-Male Stated complaint: unable to empty bladder Time Seen by Provider: 04/08/24 17:40 Source: patient Mode of arrival: walk-in History of Present Illness HPI narrative: Patient presents to ED for urinary retention. Patient has a history of urinary retention and had a catheter in since Wednesday. The catheter was removed today and they told him to come back to the emergency room if he is unable to urinate. Patient left at noon and was unable to urinate so he presented back here to the ER. He is got 500 mL in his bladder showing acute bladder outlet obstruction and urinary retention. Patient has some pressure in his abdomen but no other complaints at this time. Related Data Home Medications ?Medication ?Instructions ?Recorded ?Confirmed acetaminophen 500 mg capsule 1,000 mg PO Q6H PRN fever or pain 02/26/24 04/05/24 allopurinol 300 mg tablet 300 mg PO DAILY 02/26/24 04/05/24 amlodipine 10 mg tablet 10 mg PO DAILY 02/26/24 04/05/24 apixaban 5 mg tablet (Eliquis) 5 mg PO Q12H 02/26/24 04/05/24 aspirin 81 mg tablet,delayed 81 mg PO .weekly 02/26/24 04/05/24 release (Adult Aspirin Regimen) calcium 315 mg (as 1 tab PO DAILY 02/26/24 04/05/24 citrate)-vitamin D3 5 mcg (200 unit) tablet (Calcium Citrate + D) carvedilol 6.25 mg tablet 6.25 mg PO Q12H 02/26/24 04/05/24 cyanocobalamin (vitamin B-12) 1,000 mcg PO DAILY 02/26/24 04/05/24 1,000 mcg tablet (Vitamin B-12) ferrous sulfate 325 mg (65 mg 325 mg PO DAILY 02/26/24 04/05/24 iron) tablet (iron) furosemide 20 mg tablet 20 mg PO Q12H 02/26/24 04/06/24 glipizide 10 mg tablet 10 mg PO BID 02/26/24 04/05/24 hydralazine 50 mg tablet 100 mg PO Q8H 02/26/24 04/05/24 insulin glargine 100 unit/mL (3 26 unit subcut BID 12/07/24 01/16/25 mL) subcutaneous pen multivitamin (Daily Multi-Vitamin 1 tab PO DAILY 02/26/24 04/05/24 tablet) omeprazole 20 mg capsule,delayed 20 mg PO DAILY 02/26/24 04/05/24 release semaglutide 1 mg/dose (4 mg/3 mL) 1 mg subcut QWEEK 02/26/24 04/05/24 subcutaneous pen injector (Ozempic) sildenafil 100 mg tablet 100 mg PO Q24H PRN sexual activity 02/26/24 03/28/24 simvastatin 20 mg tablet 20 mg PO DAILY 02/26/24 04/06/24 spironolactone 25 mg tablet 25 mg PO DAILY 02/26/24 04/05/24 tacrolimus 0.1 % topical ointment 1 applic topical Q12H PRN skin 02/26/24 03/28/24 irritation terazosin 10 mg capsule 10 mg PO BEDTIME 02/26/24 04/06/24 diclofenac sodium 1 % topical gel 2 g topical BID 04/05/24 04/05/24 ruxolitinib 1.5 % topical cream 1 applic topical BID PRN dermatitis 04/05/24 04/06/24 (Opzelura) tolterodine 2 mg capsule,extended 2 mg PO Q24H 04/05/24 04/06/24 release 24 hr Previous Rx's ?Medication ?Instructions ?Recorded hyoscyamine sulfate 0.125 mg 0.125 mg sublingual QID #40 tabs 03/30/24 sublingual tablet mirabegron 25 mg tablet,extended 25 mg PO DAILY #30 tabs 03/30/24 release 24 hr (Myrbetriq) benzonatate 100 mg capsule 200 mg (2 x 100 mg) PO Q8H PRN 04/08/24 Cough #24 caps levofloxacin 750 mg tablet 750 mg PO DAILY 7 days #7 tabs 04/08/24 Allergies Allergy/AdvReac Type Severity Reaction Status Date / Time fosinopril (From Monopril) Allergy Severe shortness Verified 04/05/24 20:09 of breath metoprolol Allergy Severe shortness Verified 04/05/24 20:09 of breath strawberry Allergy Severe Rash Verified 04/05/24 20:09 Opioid HPI Opioid Management Most Recent Opioid Data: Last Pain Scale 8 04/08/24 17:53 04/08/24 Last Pain Assessment 04/08/24 10:57 Last ORT Total Score 6 04/05/24 22:51 04/05/24 Last ORT Risk Category Moderate Risk 04/05/24 22:51 04/05/24 Review of Systems ROS Status of ROS 10 or more systems reviewed and unremarkable except as noted in history and below [facility] Medical History (Updated 04/08/24 @ 17:59 by Syl Vargas DO) Acute kidney injury ?N17.9 - Acute kidney failure, unspecified (ICD-10) Bladder spasm ?N32.89 - Other specified disorders of bladder (ICD-10) Urinary tract infection ?N39.0 - Urinary tract infection, site not specified (ICD-10) Urinary tract infection ?N39.0 - Urinary tract infection, site not specified (ICD-10) Failure of outpatient treatment ?Z78.9 - Other specified health status (ICD-10) Urinary tract infection ?N39.0 - Urinary tract infection, site not specified (ICD-10) Skin cancer ?C44.90 - Unspecified malignant neoplasm of skin, unspecified (ICD-10) Myocardial infarction ?I21.9 - Acute myocardial infarction, unspecified (ICD-10) Pacemaker ?Z95.0 - Presence of cardiac pacemaker (ICD-10) CKD (chronic kidney disease) ?N18.9 - Chronic kidney disease, unspecified (ICD-10) CAD (coronary artery disease) ?I25.10 - Atherosclerotic heart disease of [place] coronary artery without angina pectoris (ICD-10) A-fib ?I48.91 - Unspecified atrial fibrillation (ICD-10) Erectile dysfunction ?N52.9 - Male erectile dysfunction, unspecified (ICD-10) UTI (urinary tract infection) ?N39.0 - Urinary tract infection, site not specified (ICD-10) GERD (gastroesophageal reflux disease) ?K21.9 - Gastro-esophageal reflux disease without esophagitis (ICD-10) Hypertension ?I10 - Essential (primary) hypertension (ICD-10) Diabetes ?E11.9 - Type 2 diabetes mellitus without complications (ICD-10) Surgical History History of arthroscopic knee surgery ?Z98.890 - Other specified postprocedural states (ICD-10) Hx of tonsillectomy ?Z90.89 - Acquired absence of other organs (ICD-10) Family History Mother Family history of CHF (congestive heart failure) Family history of myocardial infarction Family history of hypertension Family history of diabetes mellitus Family history of COPD (chronic obstructive pulmonary disease) Grandmother Family history of CHF (congestive heart failure) Brother Family history of CHF (congestive heart failure) Family history of myocardial infarction Family history of hypertension Family history of COPD (chronic obstructive pulmonary disease) Father Kidney failure Social History Within the past year, how often did you have a drink containing alcohol: never Score interpretation: A score less than 4 is consistent with normal alcohol consumption. Smoking status: Former smoker Non-prescribed substance use: denies use Known occupational exposures/hazards: No Highest level of school completed/degree received: some college, no degree Do you want help with school or training: No Little interest or pleasure in doing things: not at all Feeling down, depressed, or hopeless: not at all Gender Identity: male Exam Narrative Exam Narrative: General: alert, no acute distress Cardiovascular: regular rate and rhythm, normal peripheral perfusion. Extremities: no deformity, no trauma. Neurological: oriented x 4, LOC appropriate for age. Mild suprapubic pressure and bladder fullness no acute abdominal pain Constitutional Vital Signs, click to edit/add: Last Vital Signs Temp 98.4 F 04/08/24 17:42 Pulse 86 04/08/24 17:42 Resp 20 04/08/24 17:42 BP 137/69 04/08/24 17:42 Pulse Ox 95 04/08/24 17:42 O2 Del Method Room Air 04/08/24 17:42 Course Vital Signs Vital signs: Vital Signs Temperature 98.4 F 04/08/24 17:42 Pulse Rate 86 04/08/24 17:42 Respiratory Rate 20 04/08/24 17:42 Blood Pressure 137/69 04/08/24 17:42 Pulse Oximetry 95 04/08/24 17:42 Oxygen Delivery Method Room Air 04/08/24 17:42 Temperature 98.4 F 04/08/24 17:42 Pulse Rate 86 04/08/24 17:42 Respiratory Rate 20 04/08/24 17:42 Blood Pressure 137/69 04/08/24 17:42 Pulse Oximetry 95 04/08/24 17:42 Oxygen Delivery Method Room Air 04/08/24 17:42 Medical Decision Making MDM Narrative Medical decision making narrative: Gomez catheter placed and urine was draining well. Patient will follow-up with his urologist, Dr. Baltazar. Patient comfortable with care plan for discharge and will return if anything worsens. Differential Diagnosis Differential Diagnosis: UTI bladder outlet obstruction urinary retention Discharge Plan Discharge Chief Complaint: Urogenital-Male Clinical Impression: Acute urinary retention Patient Disposition: Home, Self-Care Time of Disposition Decision: 17:59 Condition: Good Mode of Transportation: Private Vehicle Prescriptions / Home Meds: No Action hyoscyamine sulfate 0.125 mg Tablet, Sublingual 0.125 mg sublingual QID Qty: 40 0RF mirabegron [Myrbetriq] 25 mg tablet extended release 24 hr 25 mg PO DAILY Qty: 30 11RF tolterodine 2 mg capsule,extended release 24hr 2 mg PO Q24H diclofenac sodium 1 % gel 2 g TOPICAL BID Opzelura 1.5 % cream 1 applic TOPICAL BID PRN (Reason: dermatitis) benzonatate 100 mg Capsule 200 mg PO Q8H PRN (Reason: Cough) Qty: 24 0RF levofloxacin 750 mg tablet 750 mg PO DAILY 7 Days Qty: 7 0RF carvedilol 6.25 mg tablet 6.25 mg PO Q12H glipizide 10 mg tablet 10 mg PO BID spironolactone 25 mg tablet 25 mg PO DAILY amlodipine 10 mg tablet 10 mg PO DAILY simvastatin 20 mg tablet 20 mg PO DAILY omeprazole 20 mg capsule,delayed release(DR/EC) 20 mg PO DAILY allopurinol 300 mg tablet 300 mg PO DAILY hydralazine 50 mg tablet 100 mg PO Q8H furosemide 20 mg tablet 20 mg PO Q12H Eliquis 5 mg tablet 5 mg PO Q12H cyanocobalamin (vitamin B-12) [Vitamin B-12] 1,000 mcg tablet 1,000 mcg PO DAILY aspirin [Adult Aspirin Regimen] 81 mg tablet,delayed release (DR/EC) 81 mg PO .weekly calcium citrate-vitamin D3 [Calcium Citrate + D] 315 mg-5 mcg (200 unit) tablet 1 tab PO DAILY multivitamin [Daily Multi-Vitamin] Tablet 1 tab PO DAILY insulin glargine 100 unit/mL (3 mL) insulin pen 26 unit subcut BID acetaminophen 500 mg capsule 1,000 mg PO Q6H PRN (Reason: fever or pain) terazosin 10 mg capsule 10 mg PO BEDTIME Ozempic 1 mg/dose (4 mg/3 mL) pen injector 1 mg subcut QWEEK ferrous sulfate [iron] 325 mg (65 mg iron) tablet 325 mg PO DAILY sildenafil 100 mg tablet 100 mg PO Q24H PRN (Reason: sexual activity) tacrolimus 0.1 % ointment 1 applic TOPICAL Q12H PRN (Reason: skin irritation) Print Language: [place] Instructions: Gomez Catheter Placement and Care (ED) Referrals: Jayy Dutta MD [Primary Care Provider] - 1 week Mica Car MD [Physician] - 1 week
== END 2024-04-08 18:17 | disposition home or self-care (01) ==
PROVIDERS: Emergency Provider Emergency Medicine; PCP Family Medicine
DX: R33.9 Retention of urine, unspecified (principal); Z95.0 Presence of cardiac pacemaker; Z87.891 Personal history of nicotine dependence
CPT/HCPCS: 51702; 51798; 99284

== ENCOUNTER 2024-04-15 19:36 | Inpatient (IN) | payer MEDICARE, OTHER, SELFPAY ==
[2024-04-15] VITALS (16 sets, daily range): BP systolic 134–146; BP diastolic 69–84; PULSE 82–104; TEMP 36.6–37.2; O2SAT 90–95; BMI 29.1; BMI 29.9
--- OUTSIDE RECORDS SUMMARY | 2024-04-15 19:43 | XMS_ITS | CCD ---
Author Organization [facility] Care Team Providers Care Cold Header Operator Name Role Phone Andrea Espinoza Unavailable [...] Andrea De La Rosa Primary Care Provider Leana DOAndrea Primary Care Provider Werner Scruggs Admitting Unavailable Werner Scruggs Attending Unavailable Vini Quinteros Attending Unavailable Mica Car Attending Unavailable Mica Car Attending Unavailable NAPOLEON TA Attending Unavailab Varghese Kearns Admitting Unavailable Varghese Caal Attending Unavailable Varghese Caal Referring Unavailable Barb Loza Admitting UnavailBarb Lang Attending Unavailabl e Dayane Mica MAnisa Admitting Unavailable Lue, Mica MAnisa Attending Unavailable Lori Medina MD Primary Care Provider [phone] BLANCA ALONSO Attending Unavailable PETITTGiovanna, BLANCA Juan Manuel Attending Unavailable DANK JONES Attending Unavailable PETTIM, BLANCA Zambrano Attending Unavailable CHUCK, BLANCA Zambrano Attending Unavailable BOBO BRENNER Attending Unavailable LORI MEDINA Primary Care Unavailable LORI MEDINA Primary Care Unavailable BEATA DEGROOT Attending Unavailable Andrea Espinoza DO Primary Care Provider VARGHESE CAAL Attending Unavailable VARGHESE CAAL P Referring Unavailable ANDREA ESPINOZA Primary Care Unavailable OSVALDO DICKINSON Attending Unavailable VARGHESE CAAL P Referring Unavailable ANDREA ESPINOZA Primary Care Unavailable Benton Vasquez DO Attending Provider Unavailab jameson HanleyeMica Attending Unavailable Lue, Mica MAnisa Referring Unavailable Lue, Mica MAnisa Attending Unavailable Lue, Mica M. Referring Unavailable Anna Sr Attending Unavailable Lue Mica MAnisa Attending Unavailable NATA TA Attending Unavailable Lue, Mica M. Referring Unavailable Lue, Mica M. Admitting Unavailable Lue, Mica M. Attending Unavailable Lue, Mica M. Referring Unavailable Lue, Mica M. Admitting Unavailable Lue, Mica M. Attending Unavailable Afua Varghese P Admitting Unavailable Varghese Caal P Attending Unavailable Afua Varghese P Referring Unavailable Lue, Mica M. Admitting Unavailable Lue, Mica M. Attending Unavailable KatBenton ledezma D Attending Unavailable KatkoSimoneBenton D Admitting Unavailable KatkoBenton D Attending Unavailable Katko, Benton D Admitting Unavailable Lue, Mica M. Attending Unavailable Lue, Mica M. Attending Unavailable Lue, Mica M. Attending Unavailable Allergies Allergy Classification Reported Allergen(s) Allergy Type Date of Onset Reaction(s) Facility (9 sources) Enalapril; 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: [enalapril] Drug Allergy 02-10-20 [facility] (18 sources) Metoprolol; 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: [metoprolol] Drug Allergy 10-12-19 23 Cough, Unknown -[facility] y 250 DO Work Phone: (4 sources) Fosinopril; 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: [Monopril] Drug Allergy 03-16-20 14 [facility] Repository (1 source) Metoprolol Drug Allergy 05-16-19 15 [facility] Repository (1 source) strawberry allergenic extract Drug Allergy 05-16-19 15 [facility] Repository (1 source) tomato allergenic extract Drug Allergy 05-16-19 15 [facility] Repository (3 sources) hydroCHLOROthiazide / Metoprolol; 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: [hydrochlorothiazide-m etoprolol] Drug Allergy [facility] Repository (3 sources) [place]; 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: [Strawberries] Food allergy (disorder) [facility] Repository (3 sources) Tomatoes; 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: [Tomatoes] Food allergy (disorder) [facility] Repository (6 sources) Fosinopril; 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: [FOSINOPRIL] Drug [...] Start: 03-20-2020 take 2 tablets by mo [facility] three times daily hydrALAZINE HCl - 50 [...] sources) Polyene Antifungal Start: 08-10-2023 nystatin (Mycostatin) 080325 UNIT/GM powder Indications: Erythema intertrigo Apply to [...] Start: 01-14-2021 take 2 tablets by mo [facility] once daily Spironolactone 25 MG Oral Tablet [...] disease (2 sources) Atherosclerotic heart disease of [place] coronary artery without angina pectoris; 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: [Old [...] source) [facility] (current) use of aspirin; 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: [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] Onset: 06-01-2022 Episodic Other aftercare (1 source) Other jail (current) drug therapy; 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: [OTH PRISON CURRENT DRUG THERAPY] Onset: 06-01-2022 Episodic Other [...] Name Value Interpretation Reference Range Facil ity Ambulatory Visit Summaryon 0 04-12-2024 Ambulatory Visit Summary Ambulatory Visit Summary LEIGHTON ARCINIEGA Tyrese :1945 Visit Date:04/12/2024 Ambulatory Visit Instructions Your Diagnosis Urinary retention BPH with urinary obstruction Prostatitis UTI (urinary tract infection) Anticoagulated Other obstructive and reflux uropathy Your Care Team Attending Physician - Josep SANDHU, Mica Johns Primary Care Physician - Lori Medina MD This Is Your Medications List levofloxacin (Levaquin 500 mg Tab) Contact prescribing physician if questions or concerns acetaminophen (Tylenol Extra Strength 500 mg oral tablet) allopurinol (allopurinol 300 mg Tab) amlodipine (amLODIPine 10 mg Tab) apixaban (Eliquis 5 mg oral tablet) aspirin (aspirin 325 mg Tab) calcium-vitamin D (calcium-vitamin D 600 mg-400 intl units oral tablet) carvedilol ciprofloxacin (ciprofloxacin 500 mg Tab) clopidogrel (clopidogrel 75 mg Tab) cyanocobalamin (cyanocobalamin 1000 mcg Tab) diclofenac topical (diclofenac topical 1% gel) empagliflozin (Jardiance 25 mg oral tablet) ferrous sulfate fluconazole (fluconazole 100 mg Tab) furosemide (furosemide 20 mg Tab) glipiZIDE (glipiZIDE 10 mg Tab) hydrALAZINE (hydrALAZINE 50 mg Tab) insulin glargine (Lantus) levofloxacin (levofloxacin 750 mg Tab) liraglutide (Victoza) multivitamin (Multi Vitamins oral tablet) omeprazole (omeprazole 20 mg Cap-DR) semaglutide (Ozempic (1 mg dose)) sildenafil (sildenafil 100 mg Tab) simvastatin (simvastatin 20 mg Tab) spironolactone (spironolactone 25 mg Tab) terazosin (terazosin 10 mg Cap) tolterodine (tolterodine 2 mg Cap-ER) triamcinolone (Triamcinolone Acetonide) valsartan (valsartan 160 mg Tab) Procedures Performed Pacemaker (08/15/2016), Arthroscopy of knee, Colonoscopy, Ring finger Amputation, Tonsillectomy. Discharge Vitals Temperature (Oral) 36.8 ???C Heart Rate (Peripheral) 78 Blood Pressure 126/74 Height 177 cm Height 70 in Weight 95.6 kg Weight 210.762 lb BMI 30.51 What to do next Scheduled Follow-Up Appointments Wednesday 9:30 AM EST With: Where: [facility] [address] [place] [address] [place] [address]- Wednesday 1:00 PM EST With: Mica Car MD Where: [facility] [address] [address]- 2024 11:00 AM EDT With: Where: [facility] You Need to Schedule the Following Appointments Follow Up with Josep SANDHU, Mica Johns, URL, URO When: In 1 month Comments: w/PVR Where: Medications What How Much When Instructions New levofloxacin (Levaquin 500 mg Tab) 1 Tablets By Mouth Every 24 hours Duration: [id number] Unchanged acetaminophen (Tylenol Extra Strength 500 mg [...] prescribing physician if questions or concerns Unchanged ciprofloxacin (ciprofloxacin 500 mg Tab) 1 Tablets Contact prescribing physician if questions or concerns [...] prescribing physician if questions or concerns Unchanged fluconazole (fluconazole 100 mg Tab) Oral, 0 Refill(s) Contact prescribing physician if questions or concerns Unchanged furosemide (furosemide 20 mg Tab) 1 Tablets By Mouth 2 times a day Contact prescribing physician if questions or concerns Unchanged glipiZIDE (glipiZIDE 10 mg Tab) Contact prescribing physician if questions or concerns Unchanged hydrALAZINE (hydrALAZINE 50 mg Tab) 2 Tablets By Mouth 3 time (more content not included)... Normal [facility] Urology Office/Clinic Noteon 04-12-2024 Urology Office/Clinic Note Urology Office/Clinic Note Chief Complaint 1 mth f/u HPI Staff 78yr old male pt here for 1mo f/u with PVR. S/p Cystoscopy, TRUS 01/27/2024, Rezume done on 02/14/24 w/ Dr. Car. Previous Dx: uti, BPH with urinary obstruction, anticoagulated *terazosin 10 mg qd, sildenafil 100mg PRN pt has Gomez. Pt states he was in [facility] for 4 days for pneumonia, Wednesday he was released and Gomez was taken out. Pt then states he could not urinate so he went back to [facility] and they placed the Gomez. History of Present Illness Tests reviewed: reviewed UA and External Records including CT scan, labs, cultures, notes I have reviewed the previous health record information and history for this patient from and external providers I have reviewed and verified the staff HPI to be accurate for this encounter. There have been no associated fever, chills, flank pain, or blood in the urine. . Review of Systems PHQ Score Initial Depression Screen Score: 1 SCORE ROS - Provider Constitutional: denies weight [...] See HPI. Physical Exam Vitals & Measurements T: 36.8 ???C(Oral) HR: 78(Peripheral) BP: 126/74 HT: 70 in HT: 177 cm WT: 95.6 kg WT: 210.762 lb BMI: 30.51 General Appearance: alert, no distress, well nourished, well developed male. Assessment/Plan 78 year old male with hx BPH with LUTS s/p Rezum, complicated by retention and UTI 1. Urinary retention (R33.9: Retention of urine, unspecified) Pt currently has Gomez. Pt states he was in [facility] for 4 days for pneumonia, Wednesday he was released and Gomez was taken out. Pt then states he could not urinate so he went back to [facility] and they placed the Gomez, PVR at that time showed 510cc. Advised pt that we will keep the gomez in place and to let his bladder decompress and further heal. Advised pt that we will have it removed in the next few weeks and if he continues to have infections then we can have a repeat cysto done to reassess. Pt has had the cath placed on and off since January 2024, never longer than a week -Will f/u in 1.5 wks with a fill and pull voiding trial If unable to void, replace gomez in office to avoid ER visit again 2. BPH with urinary obstruction (N40.1: Benign prostatic hyperplasia with lower urinary tract symptoms) S/p Rezum by Dr. Vargas 09/16/16. Lasted over 5 yrs per pt. S/p Cystoscopy, TRUS 01/27/2024 - moderate to severe bilobar hypertrophy and elevated bladder neck, calculated prostate volume of 57.7 mL (On CT scan, ~ 80 g) S/p Rezum by [facility] 02/14/24 - 9 treatments, Rt side did not have full cycles due to machine malfunction, therefore repeated Gomez removed 02/18/24. IPSS 25 (20), QoL 5 PVR at prior OV was 124ml Pt is to d/c the Tolterodine. -See #1 and #3 -repeat scope near 3 mths post op if issues continue vs TURP 3. Prostatitis (N41.9: Inflammatory disease of prostate, unspecified) Likely due to Rezum. Inadequate abx treatments. Discussed how prostatitis needs prolonged treatment to prevent recurrence and prolonged issues. May still be present despite neg UA. No abscess obvious on CT scan See #4 -Will send Levaquin 500mg QD x3 wks to complete 4 wks total. Discussed the medication side effects, and the patient will monitor closely for these, as well as for symptom improvement. If severe side effects occur, the medication should be stopped and the office notified. 4. UTI (urinary tract infection) (N39.0: Urinary tract infection, site not specified) [facility] 02/19/24 (day after gomez removal) d/t gross hematuria and dysuria. Pt is on Eliquis. UA showed hgb/leuks so they started him on Keflex x 10d. Cx came back nl elin. No further bleeding since then. Pt went to [facility] 02/26/24 d/t persistent dysuria. Admitted for 3 days. Received IV abx. Dc'd on Cipro x 10d and Levsin. Urine and blood cx both came back neg. [facility] ER 04/08/24 U.Cx was negative. Pt had an infection at the time of him being admitted in the hospital, is currently on abx. Advised pt to continue to abx that was given at the time of the ER visit. Advised pt that we will give him a new abx to start and take for 3 wks to ensure that the infection is gone. Pt states that his urine clear and has no sxs. Follow up in 1 mos w/PVR. All questions/concerns were discussed. Pt to call the office if he encounters any issues prior. Pt acknowledges understanding. -Will send Levaquin 500mg QD x3 wks. Discussed the medication side effects, and the patient will monitor closely for these, as well as for symptom improvement. If severe side effects occur, the medication should be stoppe (more content not included)... Normal [facility] Comment on above: Result Comment: Elec tronically Signed By: Mica Car MD\.br\Date and Time Signed: 04/12/24 12:07 EST\.br\Electronically Co-Signed By: Kavita Mukherjee\.br\Date and Time Co-Signed: 04/12/24 11:48 EST Urine Cultureon 03-28-2024 Bacteria identified Cx Nom (U) No Growth 2 Days PERFORMED BY: [place] [id number] PATHOLOGIST SWEATER DESIGNER OSCAR ESCOBAR M.D. Normal [facility] Comment on above: Performed By: #### C UU #### [address] C Urineon 03-26-2024 Bacteria identified Cx [...] Locations R1: This test was performed at: [facility], [address] [place] [address], [address]- , [place], Normal [facility] Comment on above: Performed By: #### 2 [id number] #### [facility] [address] [place] [address] Main OR Preoperative Recordo n 03-20-2024 Main OR Preoperative Record Main OR Preoperative Record Holding Area Document Type FTURO Summary Primary Physician: Mica Car MD Finalized Date/Time: 03/20/24 16:29:34 Pt. Name: LEIGHTON ARCINIEGA Tyrese Greenfield/Sex: 1945 Male Med Rec #: [id number] Physician: Mica Car MD Financial #: [id number] Pt. Type: O Room/Bed: / Admit/Disch: 12/27/23 [...] Complaints of Pain: No Skin Integrity Intact, [place], Warm, & Dry Vitals - EU Blood Pressure 122/75 Pulse 81 bpm Respirations 18 br/min SPO2 96 % Additional None RN Reviewed Yes Specimens Collected Last Modified By: Tunde GODINEZ, Ankita Willett 12/27/23 11:25:48 Finalized By: Kendrick GODINEZ, Dalia MARTINEZ Document Signatures Signed By: Latha David LPN 12/27/23 11:01 Latha David LPN 12/27/23 11:02 MICHELLE Marks RN, Ruthann 03/20/24 16:29 Normal [facility] Urine Cultureon 03-11-2024 Bacteria identified Cx Nom (U) ORGANISM: Prudence glabrata (O:CANGLA) Sullivan Count 75,000 PERFORMED BY: [place] [address] PATHOLOGIST SWEATER DESIGNER OSCAR ESCOBAR M.D. Normal [facility] Comment on above: Performed By: #### C UU #### [address] Urine cultureOrdered By: Derek Vasquez on 03-11-2024 Bacteria identified Cx Nom (U) Abnormal [facility] Urology Office/Clinic Noteon 03-02-2024 Urology [...] that he had 3 day stay at [facility] on 02/26/24 for severe UTI & [...] further bleeding since then. Pt went to [facility] 02/26/24 d/t persistent dysuria. Admitted for [...] 124ml Told him to continue Alfuzosin. Ordered: 79432 Measure Post Void residual urine and/or bladder [...] Urnls Dip Stick Auto w/o Microscopy POC 07506 3. Anticoagulated (Z79.01: [facility] (current) use of anticoagulants) on Eliquis. Follow-up [...] Hypercholesteremia Inco (more content not included)... Normal [facility] Comment on above: Result Comment: Elec tronically Signed By: FELIPE BENDER, NATA Holt\.br\Date and Time Signed: 03/02/24 17:13 EST\.br\Electronically Co-Signed By: Martir Sheabr\Date and Time Co-Signed: 03/02/24 13:38 EST ECG 12 Leadon 03-01-2024 AV paced rhythm [facility] Work Phone: URINE CULTUREon 02-19-2024 Bacteria identified Cx Nom (U) CULTURE RESULTS 10-50,000 ORGANISMS/mL NORMAL UROGENITAL ELIN Normal [facility] Comment on above: Performed By: #### 6 30-4 #### [facility] ([id number]) [address] [place] [address], [address] [place] [address] URN MACROSCOPIC NURon 2023 BILIRUBIN LETHA Negative Normal [facility] Comment on above: Performed By: #### N UM #### [facility] ([id number]) [address] [place] [address] BLOOD/HGB LETHA Large Abnormal NEG [facility] Comment on above: Performed By: #### N UM #### [facility] ([id number]) [address] [place] [address] GLUCOSE LETHA >=1000 Abnormal [facility] Comment on above: Performed By: #### N UM #### [facility] ([id number]) [address] [place] [address] KETONES LETHA Negative Normal NEG [facility] Comment on above: Performed By: #### N UM #### [facility] ([id number]) [address] [place] [address] LEUKOCYTE ESTERASE LETHA Small Abnormal NEG [facility] Comment on above: Performed By: #### N UM #### [facility] ([id number]) [address] [place] [address] NITRITE LETHA Negative Normal NEG [facility] Comment on above: Performed By: #### N UM #### [facility] ([id number]) [address] [place] [address] PH LETHA 6.0 Normal 5.0-8.5 [facility] Comment on above: Performed By: #### N UM #### [facility] ([id number]) [address] [place] [address] PROTEIN LETHA 100 mg/dL Abnormal NEG [facility] Comment on above: Performed By: #### N UM #### [facility] ([id number]) [address] [place] [address] SPECIFIC GRAVITY LETHA 1.015 Normal 1.003-1.035 [facility] Comment on above: Performed By: #### N UM #### [facility] ([id number]) [address] [place] [address] UROBILINOGEN LETHA 0.2 eu/dL Normal <1.1 [facility] Comment on above: Performed By: #### N UM #### [facility] ([id number]) [address] [place] [address] Inpatient Patient Summaryon 02-14-2024 Inpatient Patient Summary Inpatient Patient Summary [place] [address] Clinical Summary Person Information Name: LEIGHTON ARCINIEGA Age: 78 Years : 1945 Sex: Male PCP: Lori Medina MD Marital Status: Race: White Ethnicity: Non- or Language: Kazakh Visit Id: Visit Reason: BPH WITH URINARY OBSTRUCTION Speciality: Acuity: Enc Type: Outpatient Med Service: Surgery Arrival: 02/14/2024 09:35:51 Discharge: Dispo Type: Address: [facility] LINDEN TONEY [address] [place] [phone] Provider Notes: Diagnosis: BPH with obstruction/lower urinary [...] day as needed for pain. acetaminophen-hydroc odone ([place] 325 mg-5 mg oral tablet) 1 Tablets [...] EU - Rezum Discharge Instructions (CUSTOM) Normal [facility] Main OR Intraoperative Recor don 02-14-2024 Main OR Intraoperative Record Main OR Intraoperative Record IntraOp Document Type FTURO Summary Primary Physician: Mica Car MD Finalized Date/Time: 02/14/24 12:08:58 Pt. Name: LEIGHTON ARCINIEGA Gin/Sex: 1945 Male Med Rec #: [id number] Physician: Mica Car MD Financial #: [id number] Pt. Type: O Room/Bed: / Admit/Disch: 02/14/24 [...] Attendee Mica Car MD, Kelsie E McClain [facility], [facility] Role Performed Surgeon - Primary Lease Out Worker - Primary Scrub - Primary Time In [...] 02/14/24 12:08 Jocy Corral 02/14/24 12:08 [facility] Main OR Preoperative Recordo n 02-14-2024 Main OR Preoperative Record Main OR Preoperative Record Holding Area Document Type FTURO Summary Primary Physician: Mica Car MD Finalized Date/Time: 02/14/24 11:48:27 Pt. Name: LEIGHTON ARCINIEGA Tyrese Rolon/Sex: 1945 Male Med Rec #: [id number] Physician: Mica Car MD Financial #: [id number] Pt. Type: O Room/Bed: / Admit/Disch: 02/14/24 [...] Complaints of Pain: No Skin Integrity Intact, [place], Warm, & Dry Vitals - EU Blood Pressure 152/74 Pulse 61 bpm Respirations 18 br/min SPO2 97 % Additional None RN Reviewed Yes Specimens Collected Last Modified By: Jocy Corral 02/14/24 11:48:23 Finalized By: Jocy Corral Document Signatures Signed By: Latha David LPN 02/14/24 11:05 oJcy Corral Yanet 02/14/24 11:48 Jocy Corral 02/14/24 11:48 Normal [facility] Operative Reporton Operative Report Operative Report Patient: [...] clearer. Follow-up in 1 month PVR.. Normal [facility] Comment on above: Result Comment: Elec tronically Signed By: Mica Car MD\.br\Date and Time Signed: 02/14/24 12:03 EST Outpatient Surgery Discharge Instructionon 02-14-2024 Outpatient Surgery Discharge Instruction Outpatient Surgery Discharge Instruction [place] [id number] Patient Discharge Instructions PERSON INFORMATION Name: LEIGHTON [...] with PVR Type Location Start Finish State [place] Pacemaker (FT) FT.CARDIO 06/01/2024 11:00 AM 06/01/2024 [...] While there (more content not included)... Normal [facility] Ambulatory Visit Summaryon 1 04-01-2023 Ambulatory Visit Summary Ambulatory Visit Summary LEIGHTON ARCINIEGA Tyrese :1945 Visit Date:01/31/2024 Ambulatory Visit Instructions Your Diagnosis Urinary retention BPH with urinary obstruction Screening PSA (prostate specific antigen) ED (erectile dysfunction) Your Care Team Attending Physician - MICHAEL Sr APRN, Anna Herrera Primary Care Physician - Lori Medina MD This Is Your Medications List Contact prescribing physician if questions or concerns acetaminophen (Tylenol Extra Strength 500 mg oral tablet) acetaminophen-hydroc odone ([place] 325 mg-5 mg oral tablet) allopurinol (allopurinol [...] the Following Appointments Follow Up with Josep SANHDU, MIGUELITO Richard, URO When: Comments: Tonie 02/14/24 Where: Medications What How Much When Instructions Unchanged acetaminophen (Tylenol Extra Strength 500 mg oral tablet) 2 Tablets By Mouth Every day as needed for for pain Contact prescribing physician if questions or concerns Unchanged acetaminophen-hydroc odone ([place] 325 mg-5 mg oral tablet) 1 Tablets [...] omeprazole (omep (more content not included)... Normal [facility] Urology Office/Clinic Noteon 01-31-2024 Urology Office/Clinic Note Urology Office/Clinic Note Chief Complaint [facility] follow [facility] HPI Staff 78 year old male patient presents today for a [facility] ER follow up 01/23/24. Pt has [...] with voice recognition artificial intelligence software, specifically [employer], [employer] and or [employer] Substitutions may have occurred due to the [...] (N52.9: Male erectile dysfunction, unspecified) Hx of PA in 2002. Has pacemaker in place. Denies [...] in medic (more content not included)... Normal [facility] Comment on above: Result Comment: Elec tronically Signed By: MICHAEL Sr APRN, Anna Herrera\.br\Date and Time Signed: 01/31/24 16:26 EST URINE CULTUREon 01-24-2024 Bacteria identified Cx Nom (U) CULTURE RESULTS NO GROWTH AT <1000 CFU/mL Normal [facility] Comment on above: Performed By: #### 6 30-4 #### [facility] ([id number]) [address] [place] [address], [address] [place] [address] URN MACROSCOPIC NURon 2023 BILIRUBIN LETHA Negative Normal NEG [facility] Comment on above: Performed By: #### N UM #### [facility] ([id number]) [address] [place] [address] BLOOD/HGB LETHA Trace Abnormal NEG [facility] Comment on above: Performed By: #### N UM #### [facility] ([id number]) [address] [place] [address] [place] [address] GLUCOSE LETHA >=1000 Abnormal NEG [facility] Comment on above: Performed By: #### N UM #### [facility] ([id number]) [address] [place] [address] [place] [address] KETONES LETHA Negative Normal NEG [facility] Comment on above: Performed By: #### N UM #### [facility] ([id number]) [address] [place] [address] [place] [address] LEUKOCYTE ESTERASE LETHA Large Abnormal NEG [facility] [facility] Comment on above: Performed By: #### N UM #### [facility] ([id number]) [address] [place] [address] [place] [address] NITRITE LETHA Negative Normal NEG [facility] Comment on above: Performed By: #### N UM #### [facility] ([id number]) [address] [place] [address] PH LETHA 6.0 Normal 5.0-8.5 [facility] Comment on above: Performed By: #### N UM #### [facility] ([id number]) [address] [place] [address] [place] [address] PROTEIN LETHA 100 mg/dL Abnormal NEG [facility] Comment on above: Performed By: #### N UM #### [facility] ([id number]) [address] [place] [address] SPECIFIC GRAVITY LETHA 1.015 Normal 1.003-1.035 [facility] Comment on above: Performed By: #### N UM #### [facility] ([id number]) [address] [place] [address] UROBILINOGEN LETHA 0.2 eu/dL Normal <1.1 [facility] Comment on above: Performed By: #### N UM #### [facility] ([id number]) [address] [place] [address] Inpatient Patient Summaryon 12-27-2023 Inpatient Patient Summary Inpatient Patient Summary [place] [address] Clinical Summary Person Information Name: LEIGHTON ARCINIEGA Age: 78 Years : 1945 Sex: Male PCP: Lori Medina MD Marital Status: Race: White Ethnicity: Non- or Language: Kazakh Visit Id: Visit Reason: BPH WITH URINARY OBSTRUCTION Speciality: Acuity: Enc Type: Outpatient Med Service: Surgery Arrival: 12/27/2023 09:33:05 Discharge: Dispo Type: Address: [facility] LINDEN TONEY [address] [facility] [id number] Provider Notes: Diagnosis: Anticoagulated; Other obstructive and [...] day as needed for pain. acetaminophen-hydroc odone (Whittier 325 mg-5 mg oral tablet) 1 Tablets [...] When: Mica Car Comments: Office to schedule [facility] Type Location Start Finish State NCV Pacemaker (FT) FT.CARDIO 06/01/2024 11:00 AM 06/01/2024 11:15 AM Confirmed Patient Education Information: EU - Cystoscopy Discharge Instructions (CUSTOM) [facility] Main OR Intraoperative Recor yovanny 12-27-2023 Main OR Intraoperative Record Main OR Intraoperative Record IntraOp Document Type FTURO Summary Primary Physician: Mica Car MD Finalized Date/Time: 12/27/23 11:42:38 Pt. Name: LEIGHTON ARCINIEGA/Sex: 1945 Male Med Rec #: [id number] Physician: Mica Car MD Financial #: [id number] Pt. Type: O Room/Bed: / Admit/Disch: 12/27/23 09:33:05 - Institution: Case Times FTURO Entry 1 Patient Times In Room 12/27/23 11:23:00 Out Room 12/27/23 11:42:00 Procedure Times Start 12/27/23 11:29:00 Stop 12/27/23 11:34:00 Anesthesia Times Last Modified By: Tunde GODINEZ, Ankita Willett 12/27/23 11:36:34 General Comments: CYSTOSCOPY ENDED AT 1131. TRUS STARTED AT 1132 -VAnisa GRAY RN Case Attendance FTURO Entry 1 Entry 2 Entry 3 Case Attendee Josep SANDHU, Mica Gray RN, Micky Vargas Role Performed Surgeon - Primary Lease Out Worker - Primary Scrub - Primary Time In 12/27/23 11:23:00 12/27/23 11:23:00 12/27/23 11:23:00 Time Out 12/27/23 11:42:00 12/27/23 11:42:00 12/27/23 11:42:00 Procedure PROSTATE TRANSRECTAL PROSTATE TRANSRECTAL PROSTATE TRANSRECTAL ULTRASOUND WITH BIO(.) ULTRASOUND WITH BIO(.) ULTRASOUND WITH BIO(.) Comments Last Modified By: Tunde GODINEZ, Ankita Gray RN, Ankita Gray RN, Ankita Willett 12/27/23 Shelly Willett 12/27/23 Shelly Willett 12/27/23 [...] By: Ankita Gray RN 12/27/23 11:42 Normal [facility] Operative Reporton Operative Report Operative Report Patient: LEIGHTON ARCINIEGA Age: 78 years Sex: Male : 1945 Associated Diagnoses: None Author: Mica Car MD Procedure Operative Information Details: Date/ Time: 12/27/2023 12:10:00. Pre-Op Dx: BPH w/ LUTS - N40.1. Post-Op Dx: Feeling of incomplete bladder emptying (NEJ78-LE R39.14, Working, Medical), Anticoagulated (OSV54-XM Z79.01, Discharge, Medical), Same. Anesthesia Type: Local. [...] and Valium prior to procedure. 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 -Will need blood thinners held prior to procedure. Elevated risk of bleeding discussed. -Patient did better on terazosin. Will DC tamsulosin and restart terazosin 10 mg daily. [facility] [place] Normal [facility] Comment on above: Result Comment: Elec tronically Signed By: Josep SANDHU, iMca Johns\.br\Date and Time Signed: 12/27/23 12:14 EDT Outpatient Surgery Discharge Instructionon 12-27-2023 Outpatient Surgery Discharge Instruction Outpatient Surgery Discharge Instruction [place] [id number] Patient Discharge Instructions PERSON INFORMATION Name: LEIGHTON [...] Office to schedule [facility]zum Type Location Start [facility] State NCV Pacemaker (FT) FT.CARDIO 06/01/2024 11:00 [...] Date You may receive a survey from [employer] asking you to rate your care experience. Your feedback is important and will help us understand what we do well and how we can improve the quality of care we provide to you, your loved ones and our community. It?s an honor to serve you. Thank you for choosing [facility] Normal [facility] Ambulatory Visit Summaryon 0 11-12-2023 Ambulatory Visit [...] Strength 500 mg oral tablet) acetaminophen-hydroc odone (Whittier 325 mg-5 mg oral tablet) allopurinol (allopurinol [...] if questions or concerns Unchanged acetaminophen-hydroc odone (Whittier 325 mg-5 mg oral tablet) 1 Tablets [...] Mouth E (more content not included)... Normal [facility] Urology Office/Clinic Noteon 11-12-2023 Urology Office/Clinic Note [...] (N52.9: Male erectile dysfunction, unspecified) Hx of PA in 2002. Has pacemaker in place. Denies [...] 11/12/2023 16:14:22. . Documentation recorded by the Maria Luz chavarriaman, accurately reflects the services(s) I performed and [...] antigen) Seborr (more content not included)... Normal [facility] Comment on above: Result Comment: Elec tronically Signed By: Mica Car MD\.br\Date and Time Signed: 11/12/23 16:43 EDT\.br\Electronically Co-Signed By: Maria Luz Mejia\.br\Date and Time Co-Signed: 11/12/23 16:14 EDT PTH Intacton 10-15-2023 Parathyrin.intact [Mass/Vol] 49 pg/mL Invalid Interpretation Code 15-65 [facility] Comment on above: Result Comment: Perf ormed at: [facility] [address] [phone] [id number] PhD Carlos Singh Performed By: #### 1 [id number] #### [facility] [address] [place] [address] ED Clinical Summaryon 2023 ED Clinical Summary ED Clinical Summary [address] [address] ED Clinical Summary Person Information Name: LEIGHTON ARCINIEGA [place] Age: 77 Years : 1945 Sex: Male Language: Kazakh PCP: Lori Medina MD Marital Status: Visit [...] 10/14/2023 13:18:55 10/14/2023 13:18:55 ADDRESS: Danie TONEY [address] [place] [phone] PHYS DOC NOTES: MEDICAL INFORMATION: Prescriptions Given: New Medications [id number], [address] [place], [place] [id number], [phone] acetaminophen-hydroc odone (Whittier 325 mg-5 mg oral tablet) 1 Tablets [...] EDUCATION INFORMATION: Instructions: Acute Knee Pain, Adult, Wabq-gn-Uxpd Follow up: With: Address: When: Andrea Espana [address] [place], [place] [id number] Business (1) In 3 days 10/17/2023 With: Address: When: Call to schedule a follow-up appointment with your orthopedic surgeon. Use the Whittier as needed for pain along with icing. . If you are unable to get in with your orthopedic surgeon, I have provided a referral for another one. In 3 days 10/17/2023 With: Address: When: Lori Medina [address] [place] [address], [facility] [place] [phone] Business (1) In 3 days DIAGNOSIS: Posterior left knee pain Normal [facility] ED Note-Physicianon 10-14-19 ED Note-Physician ED Note-Physician [...] he previously saw an orthopedic surgeon in [facility] for arthritis in which he will follow-up for further management of care. Patient is on Eliquis therefore I cannot prescribe him naproxen or any form of NSAID. Due to his age I did not feel a muscle relaxer was appropriate either. Based on this he is being prescribed 4 doses of Whittier. He was educated on appropriate use of [...] q4hr for pain, 4 tab(s), Refill(s) 0, [id number], 177, cm, 10/14/23 11:44:00 EDT, Height/Length Dosing, 104.8, kg, 10/14/23 11:44:00 EDT, Weight Dosing Disposition Plan Patient Discharge Condition stable Discharge Disposition home Discharge Prescription List Prescriptions Whittier 325 mg-5 mg oral tablet, 1 tab(s), Oral, q4hr, PRN Follow-up With When Contact Information Andrea Espana In 3 days 10/17/2023 EDT [address] [place] [address]- Business (1) Additional Instructions: Call to schedule a follow-up appointment with your orthopedic surgeon. Use the Whittier as needed for pain along with icing. . If you are unable to get in with your orthopedic surgeon, I have provided a referral for another one. In 3 days 10/17/2023 EDT Additional Instructions: Lori Medina In 3 days [address] [place] [address]- Business (1) Additional Instructions: Patient Education Acute Knee Pain, Adult, Rovm-nq-Hucu Attestation Patient seen and evaluated by the physician procurement assistant. Attending physician was present in the emergency department and supervised care. This visit was performed by both the physician and an APC. I performed all aspects of the MDM as documented. This report was transcribed using voice recognition software. Every effort was made to ensure accuracy, however, inadvertently computerized drawer waxer mistakes may be present. Appropriate healthcare PPE was used in evaluating this patient. The patient was placed in a mask. The healthcare provider was wearing mask, gloves, and utiliz (more content not included)... Normal [facility] Comment on above: Result Comment: Elec tronically Signed By: Vini Quinteros DO\.br\Date and Time Signed: 10/14/23 16:09 EDT\.br\Electronically Co-Signed By: Nayla William PA-C\.br\Date and Time Co-Signed: 10/14/23 13:46 EDT ED Patient Summaryon 024 ED Patient Summary ED Patient Summary [facility] [address] [phone] Patient Discharge Instructions Person Information Name: LEIGHTON ARCINIEGA Age: 77 Years Arrival Date: 10/14/2023 11:36:13 Discharge Diagnosis: Posterior left knee pain Primary Care Physician: Lori Medina MD Provider Information Primary Provider: Vini Quinteros DO Advanced Supervisor In [employer] Testing:Nayla William PA-C The exam and treatment you received in the Emergency Department were for an urgent problem and are not intended as complete care. It is important that you follow up with a doctor, nurse practitioner, or physician?s procurement assistant for ongoing care. If your symptoms [...] Instructions: With: Address: When: Andrea Espana [address] [place] [phone] Business (1) In 3 days 10/17/2023 With: Address: When: Call to schedule a follow-up appointment with your orthopedic surgeon. Use the Whittier as needed for pain along with icing. . If you are unable to get in with your orthopedic surgeon, I have provided a referral for another one. In 3 days 10/17/2023 With: Address: When: Lori Medina [address] [facility] [place] [address] Business (1) In 3 days In the event that this physician does not participate in your insurance network, please consult with your insurance company to find a nearby participating provider. Patient Education Materials: Acute Knee Pain, Adult, Joic-tu-Qlnc A MESSAGE TO ALL PATIENTS REGARDING OPIOIDS PRESCRIPTION OPIOIDS: WHAT YOU NEED TO KNOW Prescription opioids can be used to help relieve emstyfaz-ef-khtowt pain and are often prescribed following a [...] or yo (more content not included)... Normal [facility] XR Knee Complete 4+ Views Le fton [...] mGy = na DAP = na Normal [facility] Screenson 06-17-2023 Screens [id number] #1.00TIFF Normal [facility] Screens [id number] #1.00TIFF Normal [facility] Ambulatory Visit Summaryon 0 06-16-2023 Ambulatory Visit [...] Cardiovascular Services Wednesday 3:00 PM EDT With: Mica Car MD Where: [facility] Patient Educationon 06-16-19 24 Patient Education [...] these instructions at home: Medicines ? Take ssyg-kca-ottvoqf and prescription medicines only as told by [...] include cig (more content not included)... Normal [facility] Urology Office/Clinic Noteon 06-16-2023 Urology Office/Clinic Note [...] BP). -Has f/u already scheduled w [facility] 08/23/24 2. Incomplete bladder emptying (R33.9: Retention of urine, unspecified) See #1 3. ED (erectile dysfunction) (N52.9: Male erectile dysfunction, unspecified) Hx of PA in 2002. Has pacemaker in place. Denies [...] Information Josep SANDHU, Mica Johns, URL, [facility] [address] [place] [phone] Additional Instructions: Has f/u already scheduled 11/12/23 Patient Education Erectile Dysfunction Benign Prostatic Hyperplasia Documentation recorded by the deon Frankel accurately reflects the services(s) I performed and decisions made by me. Authenticated by Nata Ta PA-C on 06/16/2023 10:56:10. IKriss, personally scribed for Nata Ta PA-C on [...] Amputation, Tonsillectomy. (more content not included)... Normal [facility] Comment on above: Result Comment: Elec tronically Signed By: NATA TA PA-C\.br\Date and Time Signed: 06/16/23 10:56 EDT\.br\Electronically Co-Signed By: Kriss Frankel\.br\Date and Time Co-Signed: 06/16/23 10:48 EDT Screenson 05-10-2023 Screens [id number] #1.00TIFF [facility] Screens [id number] #1.00TIFF [facility] Ambulatory Visit Summaryon 0 05-07-2023 Ambulatory [...] NATA TA PA-C Where: [facility] Normal [address] [place] [address]- \.br\ You Need to Schedule the Following Appointments\.br\ Follow Up with NATA TA PA-C, URL When: \.br\ Comments:\.br\ 1 mos w/ PVR \.br\ Where:\.br\ [address]\.br\ [place] [address]\.br\ [phone]\.br\ Medications\.br\ What How Much When Instructions\.br\ New tadalafil (tadalafil 10 mg Tab) 1 Tablets By Mouth As Directed as needed for for erectile dysfunction Refills: 3 Take one tab 1 hour prior to sexual activity. Do not exceed 20mg in 48hrs. Pickup at [facility] #50300\.br\ New tamsulosin (tamsulosin 0.4 mg Cap) 1 Capsules By Mouth Once a day (in the evening) Refills: 11 Pickup at [facility] #[id number]\.br\ Unchanged acetaminophen (Tylenol Extra Strength 500 mg [...] or concerns \.br\ Pharmacy Information\.br\ [id number]: [address] [place], [place] [id number] [phone]\.br\ Allergies\.br\ Monopril (Dry cough)\.br\ Strawberries (rash)\.br\ Tomatoes [...] Symptoms of this condition include:\.br\ ? \ [facility] Ambulatory Visit Summary LEIGHTON ARCINIEGA :1945 Visit Date:05/07/2023 Ambulatory Visit Instructions Your Diagnosis BPH with urinary obstruction ED (erectile dysfunction) Your Care Team Attending Physician - Josep [...] Appointments Follow Up with Josep SANDHU, MIGUELITO Richadr, [facility] When: Comments: 6 mos ([facility]) Where: [address] [place] [phone] Medications What How Much When Instructions Unchanged [...] Every da (more content not included)... Normal [facility] Patient Educationon 05-07-19 Patient Education Urology Erectile [...] these instructions at home: Medicines ? Take vzms-onq-vqmlace and prescription medicines only as told by [...] include cig (more content not included)... Normal [facility] Urology Office/Clinic Noteon 05-07-2023 Urology Office/Clinic Note [...] (N52.9: Male erectile dysfunction, unspecified) Hx of PA in 2002. Has pacemaker in place. AMANDA [...] Information Josep SANDHU, Mica Johns, URL, [facility] [address] [place] [phone] Additional Instructions: 1 mos w/ PVR Patient Education Erectile Dysfunction IKriss, personally scribed for Dr. Car on 05/07/2023 15:06:02. . Documentation recorded by the Kriss chavarria, accurately reflects the services(s) I performed and decisions made by me. Authenticated by Dr. Car on 05/07/2023 16:05:51. Problem List/Past Medical History Ongoing Anticoagulated Arthritis Aspirin marshall (more content not included)... Normal [facility] Comment on above: Result Comment: Elec tronically Signed By: Mica Car MD\.br\Date and Time Signed: 05/07/23 16:06 EST\.br\Electronically Co-Signed By: Kriss Frankel\.br\Date and Time Co-Signed: 05/07/23 15:08 EST Consent for Treatmenton 0 Consent for Treatment [id number] #1.00TIFF Normal [facility] Consent for Treatment [id number] #1.00TIFF Normal [facility] Consent for Treatment [id number] #1.00TIFF Normal [facility] Hct & Hgbon 04-22-2023 Hematocrit (Bld) [Volume fraction] 39.0 % Normal 37.7-49.0 [facility] Comment on above: Performed By: #### 1 [id number], 79043299, [id number], [id number] ####[facility] [address] [place] [address] Hemoglobin (Bld) [Mass/Vol] 12.5 g/dL Low 13.5-17.5 [facility] Comment on above: Performed By: #### 1 [id number], 60871783, 73160027, [id number] ####[place] [address] [place] [address] Magnesiumon 04-22-2023 Magnesium [Mass/Vol] 1.7 mg/dL Normal 1.3-2.4 [facility] Comment on above: Performed By: #### 1 9049584, 23018904, 27474895, 4336512 ####[place] [address] [place] [address] PSA Totalon 04-22-2023 PSA Total 1.6 ng/mL Normal 0.1-3.5 [facility] Comment on above: Result Comment: The concentration of PSA determined by different manufacturers can vary due to differences in assay methods and reagent specificity. Values obtained from different assay methods cannot be used interchangeably. The methodology used for this result was chemiluminescence using [employer]'s [employer] Hybritech PSA reagent. Performed By: #### 1 [id number] ####[facility] [address] [place] [address] Physician Orderon 04-22-2023 Physician Order [id number]#1.00TIFF Normal [facility] Physician Order [id number] 28#1.00TIFF Normal [facility] Renal Panelon 04-22-2023 Albumin [Mass/Vol] 3.9 g/dL Normal 3.3-5.0 [facility] Comment on above: Performed By: #### 1 [id number], 64853571, 89851763, 5985328 ####[facility] [address] [place] [address] Anion gap [Moles/Vol] 11 mmol/L Normal 6-16 [facility] Comment on above: Performed By: #### 1 7569493, 50893583, 14832644, 4104371 ####[facility] [address] [place] [address] BUN/Creat Ratio 15 No Units Normal 10-[address] [facility] Comment on above: Performed By: #### 1 4872483, 37992482, 49525726, 5735898 ####[facility] [address] [place] [address] Calcium [Mass/Vol] 9.0 mg/dL Normal 8.9-11.1 [facility] Comment on above: Performed By: #### 1 7204624, 97156497, 71047721, 9565476 ####[facility] [address] [place] [address] Chloride [Moles/Vol] 104 mmol/L Normal 101-111 [facility] Comment on above: Performed By: #### 1 7109269, 37204800, 26644530, 8545074 ####[facility] [address] [place] [address] CO2 [Moles/Vol] 29 mmol/L Normal 21-31 [facility] Comment on above: Performed By: #### 1 7656404, 52302814, 65172468, 2525076 ####[facility] [address] [place] [address] Creatinine [Mass/Vol] 1.7 mg/dL High 0.5-1.3 [facility] Comment on above: Performed By: #### 1 2811290, 08389243, 26173778, 9241125 ####[facility] [address] [place] [address] Glucose [Mass/Vol] 144 mg/dL Normal 55-199 [facility] Comment on above: Performed By: #### 1 4992369, 40328305, 49621615, 9832946 ####[facility] [address] [facility] [place] [address] Phosphate [Mass/Vol] 3.0 mg/dL Normal 1.9-4.6 [facility] Comment on above: Performed By: #### 1 8704919, 25026251, 26047108, 3063832 ####[facility] [address] [facility] [place] [address] Potassium [Moles/Vol] 3.9 mmol/L Normal 3.5-5.3 [facility] Comment on above: Performed By: #### 1 5874497, 40016460, 27289614, 3848247 ####[facility] [address] [place] [place] [address] Sodium [Moles/Vol] 140 mmol/L Normal 135-145 [facility] Comment on above: Performed By: #### 1 0182964, 32313740, 34828936, 9908708 ####[facility] [address] [facility] [address] Urea nitrogen [Mass/Vol] 26 mg/dL High 5-21 [facility] Comment on above: Performed By: #### 1 7389762, 52710907, 42753644, 1200090 ####[facility] [address] [place] [address] U Protein/Creat Ratioon U Creatinine 60.9 mg/dL Invalid Interpretation Code [facility] Comment on above: Performed By: #### 1 [id number] ####[facility] [address] [place] [address] U Prot/Creat Ratio 19.90 mg/gm Cr Normal .00-200.00 [facility] Comment on above: Performed By: #### 1 [id number] ####[facility] [address] [place] [address] Ur Total Protein 12.1 mg/dL Invalid Interpretation Code [facility] Comment on above: Performed By: #### 1 [id number] ####[facility] [address] [place] [address] eGFRon 04-22-2023 eGFR 41 mL/min/1.73 m2 Low >=59 [facility] Comment on above: Order Comment: Order added by Discern Expert. Performed By: #### 1 6071238, 26603533, 79649110, 4221018 ####[facility] [address] [place] [address] Office Visit (Cardiology)on 07-01-2022 Follow-up visit Diagnoses/Problems [...] lose weight.; Status:Complete - Retrospective Authorization; Done: [id number] Essential hypertension Renew: Carvedilol 6.25 MG Oral Tablet; Take 1 tablet twice daily Hyperlipidemia Renew: Simvastatin 20 MG Oral Tablet; TAKE 0.5 TABLET Bedtime SocHx: Former smoker Tobacco Use Screening; Status:Complete; Done: [id number] Patient Instructions Please bring all medicines, vitamins, [...] education sheet. Device check as directed per [facility] protocol Chief Complaint LEIGHTON ARCINIEGA is [...] battery life but I believe it was freezing machine operator error, and not true battery [...] negative for complaint. Vitals Vital Signs Recorded: [id number] 10: (more content not included)... Normal [employer] Tobacco Screening.on 023 Adult depression screening assessment No [facility] Ketchuppp DO Work Phone: Fall risk assessment b) One or more falls in the last year [facility] Ketchuppp DO Work Phone: Tobacco use status CPHS b) No [facility] Ketchuppp DO Work Phone: CBC AUTO DIFFon 05-28-2022 BASO # 0.0 103/ul Normal 0.0-0.1 [facility] Comment on above: Performed By: #### C BC #### [facility] [address] [address] [address] Susie Hale Basophils/100 WBC (Bld) 0.5 % Normal 0.2-2.0 [facility] Comment on above: Performed By: #### C BC #### [facility] [address] [place] [address] [address] Susie Hale EO # 0.1 103/ul Normal 0.0-0.7 [facility] Comment on above: Performed By: #### C BC #### [facility] [address] [place] [address] Dr. Susie Hale Eosinophils/100 WBC (Bld) 1.8 % Normal 0.9-7.0 [facility] Comment on above: Performed By: #### C BC #### [facility] [address] [place] [address] Dr. Susie Hale Erythrocyte distribution width (RBC) [Ratio] 13.0 % Normal 11.0-15.0 [facility] Comment on above: Performed By: #### C BC #### [facility] [address] [place] [address] Dr. Susie Hale Hematocrit (Bld) [Volume fraction] 35.0 % Critically low 42.0-54.0 [facility] Comment on above: Performed By: #### C BC #### [facility] [address] [place] [address] Dr. Susie Hale Hemoglobin (Bld) [Mass/Vol] 12.2 g/dL Critically low 14.0-18.0 [facility] Comment on above: Performed By: #### C BC #### [facility] [address] [place] [address] Dr. Susie Hale IG # 0.05 10e3/ul Critically high 0.00-0.03 [facility] Comment on above: Performed By: #### C BC #### [facility] [address] [place] [address] Dr. Susie Hale IG % 0.8 % Critically high 0.0-0.[address] [facility] Comment on above: Performed By: #### C BC #### [facility] [address] [place] [address] Dr. Susie Hale LYMPH # 1.9 103/ul Normal 1.2-3.8 [facility] Comment on above: Performed By: #### C BC #### [facility] [address] [place] [address] Dr. Susie Hale Lymphocytes/100 WBC (Bld) 28.7 % Normal 20.5-60.0 [facility] Comment on above: Performed By: #### C BC #### [facility] [address] [place] [address] Dr. Susie Hale MANUAL DIFF REQ NO Normal [facility] Comment on above: Performed By: #### C BC #### [facility] [address] [place] [address] Dr. Susie Hale MCH (RBC) [Entitic mass] 32.1 pg Normal 25.9-34.0 [facility] Comment on above: Performed By: #### C BC #### [facility] [address] [place] [address] Dr. Susie Hale MCHC (RBC) [Mass/Vol] 34.9 g/dL Normal 29.9-35.2 [facility] Comment on above: Performed By: #### C BC #### [facility] [address] [place] [address] Dr. Susie Hale MCV (RBC) [Entitic vol] 92.1 fL Normal 80.0-94.0 [facility] Comment on above: Performed By: #### C BC #### [facility] [address] [place] [address] Dr. Susie Hale MONO # 0.7 103/ul Normal 0.3-0.8 [facility] Comment on above: Performed By: #### C BC #### [facility] [address] [place] [address] Dr. Susie Hale Monocytes/100 WBC (Bld) 10.9 % Normal 1.7-12.0 [facility] Comment on above: Performed By: #### C BC #### [facility] [address] [place] [address] Dr. Susie Hale NEUT # 3.7 103/ul Normal 1.4-6.5 [facility] Comment on above: Performed By: #### C BC #### [facility] [address] [place] [address] Dr. Susie Hale Neutrophils/100 WBC (Bld) 57.3 % Normal 43.0-75.0 [facility] Comment on above: Performed By: #### C BC #### [facility] [address] [place] [address] Dr. Susie Hale Platelet mean volume (Bld) [Entitic vol] 8.5 fL Critically low 9.5-13.5 [facility] Comment on above: Performed By: #### C BC #### [facility] [address] [place] [address] Dr. Susie Hale PLT 238 103/ul Normal 150-450 [facility] Comment on above: Performed By: #### C BC #### [facility] [address] [place] [address] Dr. Susie Hale RBC 3.80 106/ul Critically low 4.70-6.10 [facility] Comment on above: Performed By: #### C BC #### [facility] [address] [place] [address] Dr. Susie Hale WBC 6.5 103/ul Normal 4.0-11.0 [facility] Comment on above: Performed By: #### C BC #### [facility] [address] [place] [address] STROKE HEAD WOon [...] MAILE CANO Date: 2022-05-28 18:17 Normal [facility] PROF 14(COMP METB)on 023 Albumin [Mass/Vol] 3.5 g/dL Normal 3.4-5.0 [facility] Comment on above: Performed By: #### C MP #### [facility] [address] [place] [address] Dr. Susie Hale Albumin/Globulin [Mass ratio] 1.1 {ratio} Normal [facility] Comment on above: Performed By: #### C MP #### [facility] [address] [place] [address] Dr. Susie Hale ALP [Catalytic activity/Vol] 87 U/L Normal 46-116 [facility] Comment on above: Performed By: #### C MP #### [facility] [address] [place] [address] Dr. Susie Hale ALT [Catalytic activity/Vol] 16 U/L Normal 16-63 [facility] Comment on above: Performed By: #### C MP #### [facility] [address] [place] [address] Dr. Susie Hale Anion gap [Moles/Vol] 10.0 mmol/L Normal [facility] Comment on above: Performed By: #### C MP #### [facility] [address] [address] [address] Susie Hale AST [Catalytic activity/Vol] 14 U/L Critically low 15-37 [facility] Comment on above: Performed By: #### C MP #### [facility] [address] [address] [address] Susie Hale Bilirubin [Mass/Vol] 0.2 mg/dL Normal 0.2-1.0 [facility] Comment on above: Performed By: #### C MP #### [facility] [address] [address] [address] Susie Hale Calcium [Mass/Vol] 8.9 mg/dL Normal 8.5-10.1 [facility] Comment on above: Performed By: #### C MP #### [facility] [address] [place] [address] Dr. Susie Hale Chloride [Moles/Vol] 105 mmol/L Normal 98-107 [facility] Comment on above: Performed By: #### C MP #### [facility] [address] [place] [address] Dr. Susie Hale CO2 [Moles/Vol] 25.7 mmol/L Normal 21.0-32.0 [facility] Comment on above: Performed By: #### C MP #### [facility] [address] [place] [address] Dr. Susie Hale Creatinine [Mass/Vol] 1.87 mg/dL Critically high 0.70-1.30 [facility] Comment on above: Performed By: #### C MP #### [facility] [address] [place] [address] Dr. Susie Hale EGFR-AF ETHIOPIAN 43 mL/min/1.73m2 Critically low >=60 [facility] Comment on above: Performed By: #### C MP #### [facility] [address] [address] [address] Susie Hale EGFR-NON AF ETHIOPIAN 35 mL/min/1.73m2 Critically low >=60 [facility] Comment on above: Performed By: #### C MP #### [facility] [address] [place] [address] Dr. Susie Hale Globulin (S) [Mass/Vol] 3.2 g/dL Normal [facility] Comment on above: Performed By: #### C MP #### [facility] [address] [address] [address] Susie Hale Glucose [Mass/Vol] 256 mg/dL Critically high 74-106 [facility] Comment on above: Performed By: #### C MP #### [facility] [address] [address] [address] Susie Hale Potassium [Moles/Vol] 3.7 mmol/L Normal 3.5-5.1 [facility] Comment on above: Performed By: #### C MP #### [facility] [address] [address] [address] Susie Hale Protein [Mass/Vol] 6.7 g/dL Normal 6.4-8.2 [facility] Comment on above: Performed By: #### C MP #### [facility] [address] [address] [address] Susie Hale Sodium [Moles/Vol] 137 mmol/L Normal 136-145 [facility] Comment on above: Performed By: #### C MP #### [facility] [address] [address] [address] Susie Hale Urea nitrogen [Mass/Vol] 22.0 mg/dL Critically high 7.0-18.0 [facility] Comment on above: Performed By: #### C MP #### [facility] [address] [address] [address] Susie Hale Urea nitrogen/Creatinin e [Mass ratio] 11.8 mg/mg Normal [facility] Comment on above: Performed By: #### C MP #### [facility] [address] [address] [address] Susie Hale Office Visit (Cardiology)on 12-16-2021 [...] in adult Healthy Weight Tips; Status:Complete; Done: [id number] Some eating tips that can help you lose weight.; Status:Complete; Done: [id number] Essential hypertension Renew: Carvedilol 6.25 MG Oral Tablet; Take 1 tablet twice daily Hyperlipidemia Renew: Simvastatin 20 MG Oral Tablet; TAKE 0.5 TABLET Bedtime SocHx: Former smoker Tobacco Use Screening; Status:Complete; Done: [id number] Unlinked Stop: Aspirin 325 MG Oral Tablet [...] your visit. Device check as directed per [facility] protocol Follow up in 6-9 months [...] Screening.on 022 Adult depression screening assessment No -[facility] 600 DO Work Phone: Fall risk assessment a) No falls within the last year [facility] 600 DO Work Phone: Tobacco use status [facility] b) No -[facility] 600 DO Work Phone: Tobacco Screening.on 021 Fall risk assessment a) No falls within the last year [facility] 250 DO Work Phone: Tobacco use status [facility] b) No -[facility] [facility] 250 DO Work Phone: Vital Signs Date Time Vital Sign Value Performing Clinician Faci lity 03-01-2024 11:12-0500 Body height 177.8 cm Osvaldo Dickinson MD Work Phone: [facility] 03-01-2024 11:12-0500 Body mass index (BMI) [Ratio] 30.13 kg/m2 Osvaldo Dickinson MD Work Phone: [facility] 03-01-2024 11:12-0500 Body weight 95.25 kg Osvaldo Dickinson MD Work Phone: [facility] 03-01-2024 11:12-0500 Diastolic blood pressure 54 mm[Hg] Osvaldo Dickinson MD Work Phone: [facility] 03-01-2024 11:12-0500 Heart rate 71 /min Osvaldo Dickinson MD Work Phone: [facility] 03-01-2024 11:12-0500 Systolic blood pressure 114 mm[Hg] Osvaldo Dickinson MD Work Phone: [facility] 12-14-2023 13:17-0400 Diastolic blood pressure 70 mm[Hg] Dank Robert DO Work Phone: [facility] 12-14-2023 13:17-0400 Heart rate 68 /min Dank Robert DO Work Phone: [facility] 12-14-2023 13:17-0400 SaO2% (BldA) [Mass fraction] 97 % Dank Robert DO Work Phone: [facility] 12-14-2023 13:17-0400 Systolic blood pressure 152 mm[Hg] Dank Robert DO Work Phone: [facility] 08-25-2023 12:12-0400 Body height 177.8 cm Varghese Caal MD Work Phone: [facility] 08-25-2023 12:12-0400 Body mass index (BMI) [Ratio] 33.43 kg/m2 Varghese Caal MD Work Phone: [facility] 08-25-2023 12:12-0400 Body weight 105.69 kg Varghese Caal MD Work Phone: [facility] 08-25-2023 12:12-0400 Diastolic blood pressure 54 mm[Hg] Varghese Caal MD Work Phone: [facility] 08-25-2023 12:12-0400 Heart rate 60 /min Varghese Caal MD Work Phone: [facility] 08-25-2023 12:12-0400 Systolic blood pressure 126 mm[Hg] Varghese Caal MD Work Phone: [facility] 02-10-2023 11:37-0500 Body height 177.8 cm Varghese Caal MD Work Phone: [facility] 02-10-2023 11:37-0500 Body mass index (BMI) [Ratio] 32.28 kg/m2 Varghese Caal MD Work Phone: [facility] 02-10-2023 11:37-0500 Body weight 102.06 kg Varghese Caal MD Work Phone: [facility] 02-10-2023 11:37-0500 Diastolic blood pressure 58 mm[Hg] Varghese Caal MD Work Phone: [facility] 02-10-2023 11:37-0500 Heart rate 63 /min Varghese Caal MD Work Phone: [facility] 02-10-2023 11:37-0500 Systolic blood pressure 120 mm[Hg] Varghese Caal MD Work Phone: [facility] 07-01-2022 10:54-0400 Body height 177.8 cm Andrea Espinoza Work Phone: [facility] [employer] [place] 600 DO Work Phone: 07-01-2022 10:54-0400 Body mass index (BMI) [Ratio] 32.71 kg/m2 Andrea Espinoza Work Phone: [facility] [employer] [place] 600 DO Work Phone: 07-01-2022 10:54-0400 Body surface area Derived from formula 2.21 m2 Andrea [facility]za [facility] Work Phone: 07-01-2022 10:54-0400 Body weight 103.42 kg Andrea Espinoza Work Phone: [facility] 600 DO Work Phone: 07-01-2022 10:54-0400 Diastolic blood pressure 64 mm[Hg] Andrea [facility]za [facility] Work Phone: 07-01-2022 10:54-0400 Heart rate 72 /min Andrea Espinoza Work Phone: [facility] 600 DO Work Phone: 07-01-2022 10:54-0400 Systolic blood pressure 118 mm[Hg] Andrea Espinoza Work Phone: [facility] 600 DO Work Phone: 12-16-2021 11:08-0400 Body height 177.8 cm Andrea Espinoza Work Phone: [facility] 600 DO Work Phone: 12-16-2021 11:08-0400 Body mass index (BMI) [Ratio] 33.86 kg/m2 Andrea Espinoza Work Phone: [facility] 600 DO Work Phone: 12-16-2021 11:08-0400 Body surface area Derived from formula 2.24 m2 Andrea Espinoza Work Phone: [facility] 600 DO Work Phone: 12-16-2021 11:08-0400 Body weight 107.05 kg Andrea Espinoza Work Phone: [facility] 600 DO Work Phone: 12-16-2021 11:08-0400 Diastolic blood pressure 64 mm[Hg] Andrea Espinoza Work Phone: [facility] 600 DO Work Phone: 12-16-2021 11:08-0400 Heart rate 72 /min Andrea Espinoza Work Phone: [facility] 600 DO Work Phone: 12-16-2021 11:08-0400 Systolic blood pressure 132 mm[Hg] Andrea Houstonh Work Phone: [facility] 600 DO Work Phone: 01-22-2021 14:36-0400 Body height 177.8 cm Andrea Espinoza Work Phone: [facility] 250 DO Work Phone: 01-22-2021 14:36-0400 Body mass index (BMI) [Ratio] 34.01 kg/m2 Andrea Espinoza Work Phone: [facility] 250 DO Work Phone: 01-22-2021 14:36-0400 Body surface area Derived from formula 2.24 m2 Andrea Espinoza Work Phone: [facility] 250 DO Work Phone: 01-22-2021 14:36-0400 Body weight 107.5 kg Andrea Espinoza Work Phone: [facility] 250 DO Work Phone: 01-22-2021 14:36-0400 Diastolic blood pressure 54 mm[Hg] Andrea Espinoza Work Phone: [facility] 250 DO Work Phone: 01-22-2021 14:36-0400 Heart rate 76 /min Andrea Espinoza Work Phone: [facility] 250 DO Work Phone: 01-22-2021 14:36-0400 Systolic blood pressure 104 mm[Hg] Andrea Espinoza Work Phone: [facility] 250 DO Work Phone: Encounters Encounter Date Encounter Type Care Provider Facility Start: 05-12-2024 ambulatory Mica Car Facility:[facility] Start: 04-25-2024 ambulatory Mica Car Facility:[facility] [place] Start: 04-12-2024 End: 04-12-2024 ambulatory Mica Car Facility:[facility] [place] Start: 04-06-2024 End: 04-06-2024 ambulatory Mica Car Facility: [place] Start: 03-28-2024 End: 03-28-2024 ambulatory Benton Vasquez [facility] Work Phone: Start: 03-28-2024 End: 03-28-2024 Departed Referred Benton Vasquez [facility] Start: 03-24-2024 End: 03-24-2024 ambulatory Mica Car Facility:[facility] Start: 03-11-2024 End: 03-11-2024 ambulatory Benton Asif Vasquez Facility:[facility] Start: 03-11-2024 End: 03-11-2024 Departed Referred Benton Vasquez [facility] Start: 03-02-2024 End: 03-02-2024 ambulatory NATA TA Facility:[facility] Start: 03-01-2024 End: 03-01-2024 Office outpatient visit 25 minutes Osvaldo Dickinson MD Work Phone: [facility] Comment on above: Paroxysmal atrial fi brillation (Multi) (Primary Dx); Sick sinus syndrome (Multi); Pacemaker; Essential hypertension; Cardiomyopathy, unspecified type (Multi); Mixed hyperlipidemia; Stage 4 chronic kidney disease (Multi); Non-smoker; BMI 30.0-30.9,adult Start: 03-01-2024 End: 03-01-2024 ambulatory [facility] Start: 02-19-2024 End: 02-19-2024 Emergency department patient visit LORI MEDINA [facility] Start: 02-18-2024 End: 02-18-2024 ambulatory Mica Car Facility:[facility] Start: 02-14-2024 End: 02-14-2024 ambulatory Mica Car Facility:[facility] Start: 01-31-2024 End: 01-31-2024 ambulatory Anna Sr Facility:[facility] Start: 01-24-2024 End: 01-24-2024 Emergency department patient visit BOBO BRENNER [facility] Start: 01-17-2024 End: 01-17-2024 Office outpatient visit 25 minutes Blanca Alonso MD Work Phone: [facility] Comment on above: Other atopic dermati tis (Primary Dx); Seborrheic keratosis; Lentigines; History of SCC (squamous cell carcinoma) of skin Start: 01-17-2024 End: 01-17-2024 ambulatory BLANCA ALONSO Not Available Start: 12-27-2023 End: 12-27-2023 ambulatory Mica Car Facility:[facility] Start: 12-14-2023 End: 12-14-2023 Bamboo flowsheet Dank Robert DO Work Phone: [email or web address] [facility] Start: 12-14-2023 End: 12-14-2023 Bamboo flowsheet Dank Robert DO Work Phone: [employer] [facility] Start: 12-14-2023 End: 12-14-2023 Office outpatient visit 25 minutes Dank Robert DO Work Phone: [employer] Comment on above: VIRGILIO (obstructive sle ep apnea) (Primary Dx); Hypersomnia; PLMD (periodic limb movement disorder); Obesity due to excess calories, unspecified classification, unspecified whether serious comorbidity present; Snoring Start: 12-14-2023 End: 12-14-2023 ambulatory DANK JONES Not Available Start: 12-09-2023 End: 12-09-2023 ambulatory Varghese Caal Facility:[facility] Start: 11-12-2023 End: 11-12-2023 ambulatory Mica Car Facility:[facility] Start: 10-14-2023 End: 10-14-2023 Emergency department patient visit Vini Quinteros Facility:[facility] Start: 10-14-2023 ambulatory Barb Elkins cility:[facility] Start: 08-31-2023 End: 08-31-2023 ambulatory BLANCA ALONSO Not Available Start: 08-25-2023 End: 08-25-2023 Office outpatient visit 25 minutes Varghese Caal MD Work Phone: [facility] Comment on above: Essential hypertensi on (Primary Dx); Sick sinus syndrome (Multi); Mixed hyperlipidemia; Paroxysmal atrial fibrillation (Multi); Dilated cardiomyopathy (Multi); Pacemaker; BMI 33.0-33.9,adult Start: 08-25-2023 End: 08-25-2023 [facility] Start: 08-10-2023 End: 08-10-2023 ambulatory BLANCA Zambrano PETITTI Not Available Start: 06-16-2023 End: 06-16-2023 ambulatory NAPOLEON TA Facility:[facility] Start: 05-07-2023 End: 05-07-2023 ambulatory Mica Car Facility:[facility] Start: 04-22-2023 End: 04-22-2023 ambulatory Varghese Caal Facility:[facility] Start: 03-19-2023 End: 03-19-2023 ambulatory BLANCA PETITTI Not Available Start: 03-05-2023 End: 03-05-2023 ambulatory BLANCA Zambrano PETITTI Not Available Start: 02-10-2023 End: 02-10-2023 Office outpatient visit 25 minutes Varghese Caal MD Work Phone: [facility] Comment on above: Sick sinus syndrome (CMS/HCC) (Primary Dx); Mobitz type II atrioventricular block; Pacemaker; Essential hypertension; Dilated cardiomyopathy (CMS/HCC); Paroxysmal atrial fibrillation (CMS/HCC) Start: 10-22-[address] Andrea Espinoza Facility: Start: 07-01-2022 Office outpatient vi sit 25 minutes Andrea Espinoza Work Phone: [facility] 600 DO Work Phone: Start: 07-01-[address] Varghese Caal II Facility: Start: 05-28-2022 End: 05-28-[address] TRINO Lange Facility:[facility] Start: 05-14-2022 End: 05-15-2022 ambulatory MARIXA ROY Facility:[facility] Start: 04-23-[address] Andrea Espinoza Facility: Start: 12-31-2021 Rx Renewal Andrea Espinoza Work Phone: [facility] 250 DO Work Phone: Start: 12-16-2021 Office outpatient vi sit 25 minutes Andrea Espinoza Work Phone: [facility] 600 DO Work Phone: Start: 12-16-[address] [facility] Facility: Start: 01-22-2021 Office outpatient vi sit 25 minutes Andrea Espinoza Work Phone: [facility] 250 DO Work Phone: Procedures Date Procedure Procedure Detail Performing Clinician Start: 03-11-2024 Urine culture Benton prajapati DO Start: 03-01-2024 Ecg routine ecg w/le ast 12 lds w/i&r Osvaldo Dickinson MD Work Phone: Colonoscopy Andrea Espinoza Work Phone: Comment on above: [id number]; Insertion of pacemak er pulse generator Andrea Vasquezemmazulay Work Phone: Operation on nose Andrea Edgar Work Phone: Operative procedure on hand Andrea Vasquezyann Work Phone: Tonsillectomy and adenoidectomy Andrea Vasquezemmazulay Work Phone: Plan of Treatment Date Care Activity Detail Author Start: 12-09-2032 DTaP/Tdap/Td Vaccine s (2 - Td or Tdap) DTaP/Tdap/Td Vaccines (2 - Td or Tdap) [facility] Start: 01-25-2025 End: 01-25-2025 Patient encounter procedure 01/25/2025 1:05 PM EST Office Visit [facility] [address] [place] [address] Blanca Alonso MD [address] [place] [address] [facility] Start: 12-12-2024 End: 12-12-2024 Patient encounter procedure 12/12/2024 1:00 PM EDT Office Visit [facility] [place] [facility] [address] [place] [address] Selinanitin Rox, [employer] [address] [place], [place] [facility] [place] [facility] Start: 11-28-2024 Glaucoma screening Diabetes: R etinopathy Screening [facility] Start: 11-07-2024 End: 11-07-2024 Patient encounter procedure 11/07/2024 10:30 AM EDT Office Visit [address] [place] [address] Osvaldo Dickinson MD [address] [facility] [place] [address] [facility] Start: 03-28-2024 Urine culture [facility] Start: 03-28-2024 Bacteria identified in Urine by Culture Urine Culture [facility] Start: 03-01-2024 End: 03-01-2024 Patient encounter procedure 03/01/2024 11:00 AM EST Office Visit [address] [place] [address] Osvaldo Dickinson MD [facility] [facility] [place] [address] [facility] Start: 01-17-2024 End: 01-17-2024 Patient encounter procedure 01/17/2024 3:15 PM EDT Office Visit [facility] [address] [place] [address] Blanca Alonso MD [address] [place] [address] [facility] Start: 12-14-2023 End: 12-14-2023 Patient encounter procedure 12/14/2023 1:30 PM EDT [facility] [place] [address] Dank Jones DO [address] [place] [id number] [facility] Comment on above: Arrived Start: 12-01-2023 Glaucoma screening Diabetes: R etinopathy Screening [facility] Start: 08-25-2023 End: 08-25-2023 Patient encounter procedure 08/25/2023 11:40 AM EDT Office Visit [place] [address] [place] [address] Varghese Caal MD 7[address] [facility] 2, [address] [place] [address] [facility] Start: 06-05-2023 COVID-19 Vaccine ( season) COVID-19 Vaccine ( season) [facility] Start: 04-01-2023 COVID-19 Vaccine (6 - Moderna series) COVID-19 Vaccine (6 - Moderna series) [facility] Start: 02-10-2023 FUV, Provider: Varghese Caal, Status: Pen, Time: 11:30 AM FUV, Provider: Varghese Caal, Status: Pen, Time: 11:30 AM [facility] 600 DO Work Phone: Start: 07-01-2022 FUV, Provider: Varghese Caal, Status: Pen, Time: 10:40 AM FUV, Provider: Varghese Caal, Status: Pen, Time: 10:40 AM [facility] 600 DO Work Phone: Start: 09-10-2021 FUV, Provider: Varghese Caal, Status: Pen, Time: 2:30 PM FUV, Provider: Varghese Caal, Status: Pen, Time: 2:30 PM [facility] 250 DO Work Phone: Start: 2020 RSV High Risk: (Elde rly (60+) or Population) (1 - 1-dose 75+ series) RSV High Risk: (Elderly (60+) or Population) (1 - 1-dose 75+ series) [facility] Start: 05-09-2020 Echocardiography Echocardiogram [facility] Start: 2005 RSV patient s and/or patients aged 60+ years (1 - 1-dose 60+ series) RSV patients and/or patients aged 60+ years (1 - 1-dose 60+ series) [facility] Start: 11-26-1995 Zoster Vaccines (1 of 2) Zoste r Vaccines (1 of 2) [facility] Start: 1964 Urine screening for protein Diabetes: Urine Protein Screening [facility] Start: 11-26-1963 Hepatitis C screening Hepatitis C Sc [facility] Start: 11-26-1955 Diabetic foot examination Diabetes: Foot Exam [facility] Start: 11-26-1955 Glaucoma screening Diabetes: R etinopathy Screening [facility] Start: 1945 Creatinine measurement Creatinine Le sarah [facility] Start: 1945 Hemoglobin A1c measurement Jennifer betes: Hemoglobin A1C [facility] Start: 1945 Lipid panel Lipid Panel [facility] Start: 1945 Medicare Annual Well ness Visit Medicare Annual Wellness Visit (AWV) [facility] Start: 1945 Potassium measurement Potassium Leve l [facility] Immunizations Immunization Date Immunization Notes Care Provider Fa naren 01-14-2022 Fluad Quadrivalent 0 .5 ML Intramuscular Prefilled Syringe Andrea Espinoza Work Phone: [facility] 600 DO Work Phone: 01-14-2022 Pfizer COVID-19 Vac Bivalent 30 MCG/0.3ML Intramuscular Suspension Andrea [facility] 600 DO Work Phone: 09-03-2021 pneumococcal conjuga te vaccine, 13 valent Dank Annner DO Work Phone: [facility] 02-15-2021 Moderna COVID-19 Vac cine 100 MCG/0.5ML Intramuscular Suspension Andrea Espinoza Work Phone: [facility] 600 DO Work Phone: 01-30-2021 influenza virus vacc ine, unspecified formulation Andrea Espinoza Work Phone: [facility] 600 DO Work Phone: 11-28-2020 influenza, high dose seasonal, preservative-free Andrea Espinoza Work Phone: [facility] 250 DO Work Phone: Comment on above: Series: 06-20-2020 Moderna COVID-19 Vac cine 100 MCG/0.5ML Intramuscular Suspension Andrea Espinoza Work Phone: [facility] 600 DO Work Phone: 05-20-2020 Moderna COVID-19 Vac cine 100 MCG/0.5ML Intramuscular Suspension [facility] DO Work Phone: Comment on above: Series: 04-25-2020 Moderna COVID-19 Vac cine 100 MCG/0.5ML Intramuscular Suspension Andrea [facility] DO Work Phone: Comment on above: Series: 12-21-2019 influenza virus vacc ine, unspecified formulation Andrea Espinoza Work Phone: [facility] 600 DO Work Phone: 12-20-2018 influenza, high dose seasonal, preservative-free Andrea Patel Pedroro Work Phone: [facility] 02-19-2018 influenza virus vacc ine, unspecified formulation Andrea Espinoza Work Phone: [facility] 600 DO Work Phone: 02-19-2018 pneumococcal polysaccharide vaccine, 23 valent Andrea Espinoza Work Phone: [facility] 250 DO Work Phone: Comment on above: Series: 02-19-2018 pneumococcal vaccine , unspecified formulation Andrea Espinoza Work Phone: [facility] 02-18-2017 Influenza, injectabl e, Madin [place] Canine Kidney, preservative free, quadrivalent Andrea Espinoza Work Phone: [facility] 600 DO Work Phone: 11-24-2016 influenza, high dose seasonal, preservative-free Andrea Espinoza Work Phone: [facility] 600 DO Work Phone: 12-21-2015 pneumococcal conjuga te vaccine, 13 valent Andrea Espinoza Work Phone: [facility] 250 DO Work Phone: Comment on above: Series: Payers Date Payer Category Payer Self-pay 2022 Medicare [id number] 2022 [facility] of [facility] ( and others) [id number] 2022 () [id number]. [id number] 2022 For Life (TFL) F OR LIFE [id number]. [id number] 2022 [employer] ( and others) [id number] 2010 Medicare [id number]. 1.13.647. [id number] 1959 [employer] ( and others) [id number] 1959 Medicare [id number] 1945 Unknown [id number] 2.16840.1.604883.3.579. 2.593 1945 Unknown [id number] 2.840.1.206784.3.579. 2.593 1945 Unknown [id number] 2.840.1.543979.3.579. 2.356 1945 Unknown [id number] 2.16840.1.889090.3.579. 2.356 1945 Unknown [id number] 2.16840.1.707446.3.579. 2.356 1945 Unknown [id number] 2.16840.1.458417.3.579. 2.356 1945 Unknown [id number] 2.16840.1.794870.3.579. 2.727 1945 Unknown [id number] 2.16.840.1.854977.3.579. 2.72 1945 Unknown [id number] 2.16.840.1.742468.3.579. 2. 1945 Unknown [id number] 2.16.840.1.896108.3.579. 2. 1945 Unknown [id number] 2.16.840.1.968839.3.579. 2.72 1945 Unknown [id number] 2.16.840.1.273875.3.579. 2. 1945 Unknown [id number] 2.16.840.1.946024.3.579. 2. 1945 Unknown [id number] 2.16840.1.706613.3.579. 2. 1945 Unknown [id number] 2.840.1.469206.3.579. 2.1258 1945 Unknown [id number] 2.840.1.889113.3.579. 2.1258 1945 Unknown [id number] 2.840.1.418044.3.579. 2.1258 1945 Unknown [id number] 2.840.1.645067.3.579. 2.1258 1945 Unknown [id number] 2.840.1.747350.3.579. 2.1258 1945 Unknown [id number] 2.840.1.869776.3.579. 2.125 1945 Unknown [id number] 2.16840.1.722894.3.579. 2.128 1945 Unknown [id number] 2.16.840.1.106836.3.579. 2.128 1945 Unknown [id number] 2.16840.1.144166.3.579. 2.1244 1945 Unknown [id number] 2.16.840.1.006349.3.579. 2.1244 1945 Unknown [id number] 2.16.840.1.315365.3.579. 2.727 1945 Unknown [id number] 2.16.840.1.107061.3.579. 2.727 1945 Unknown [id number] 2.16.840.1.831070.3.579. 2.727 1945 Unknown [id number] 2.16.840.1.182742.3.579. 2.72 1945 Unknown [id number] 2.16.840.1.652103.3.579. 2.727 1945 Unknown [id number] 2.16.840.1.195122.3.579. 2.727 1945 Unknown [id number] 2.16.840.1.048849.3.579. 2.727 1945 Unknown [id number] 2.16.840.1.586344.3.579. 2.727 1945 Unknown [id number] 2.16.840.1.742586.3.579. 2.727 1945 Unknown [id number] 2.16.840.1.881042.3.579. 2.72 1945 Unknown [id number] 2.16.840.1.063399.3.579. 2.727 1945 Unknown [id number] 2.16.840.1.723855.3.579. 2.727 Unknown Unknown [id number] 2.16.840.1.419561.3.579. 2.531 Unknown [id number] 2.16.840.1.790535.3.579. 2.531 Social History Date Type Detail Facility Start: 02-10-2023 End: 12-14-2023 No illicit drug use No illicit drug use -[facility] 250 DO Work Phone: Comment on above: quit , 1 PPD; Start: 02-10-2023 End: 08-25-2023 Tobacco smoking status NHIS Ex-smoker [facility] Work Phone: End: 03-22-1992 History of tobacco use Current smoker [facility] Work Phone: End: 03-22-1992 History of tobacco use Cigarette Smoker [facility] Work Phone: Start: 10-11-2022 End: 02-10-2023 Tobacco use and exposure Smokeless tobacco non-user [facility] Work Phone: Start: 02-10-2023 End: 12-14-2023 Alcohol intake Lifetime non-drinker (finding) [facility] Work Phone: Start: 02-10-2023 End: 12-14-2023 Tobacco use panel [facility] Work Phone: Start: 1945 Sex Assigned At Not on file U [facility] Work Phone: Start: 01-31-2023 End: 03-01-2024 Exposure to SARS-CoV-2 (event) Not sure [facility] Start: 10-11-2022 [facility] Work Phone: Start: 03-30-2024 Sex Patient sex un known (finding) [facility] Start: 1945 Sex Assigned At Male F [facility] Clinical Notes 05-14-2022 to 04-12-2024 Osvaldo Dickinson MD - 03/01/2024 11:00 AM ESTPatient InstructionsBlanca Alonso MD - 01/17/2024 3:15 PM Letty Jones DO - 12/14/2023 1:30 PM EDTPatient InstructionsPatient Instructions Note Date & Type Note Facility 04-12-2024 Note Patient Education Urology Benign Prostatic Hyperplasia [...] symptoms? Symptoms of this condition include: ??? Getting up often during the night to urinate. ??? Needing to urinate frequently during the day. ??? Difficulty starting urine flow. ??? Decrease in size and strength of your urine stream. ??? Leaking (dribbling) after urinating. ??? Inability to pass urine. This needs immediate treatment. ??? Inability to completely empty your bladder. ??? Pain when you pass urine. This is more common if there is also an infection. ??? Urinary tract infection (UTI). How is this diagnosed? This condition is diagnosed based on your medical history, a physical exam, and your symptoms. Tests will also be done, such as: ??? A post-void bladder scan. This measures any amount of urine that may remain in your bladder after you finish urinating. ??? A digital rectal exam. In a rectal exam, your health care provider checks your prostate by putting a lubricated, gloved finger into your rectum to feel the back of your prostate gland. This exam detects the size of your gland and any abnormal lumps or growths. ??? An exam of your urine (urinalysis). ??? A prostate specific antigen (PSA) screening. This is a blood test used to screen for prostate cancer. ??? An ultrasound. This test uses sound waves [...] severity of your condition. Treatment may include: ??? Observation and yearly exams. This may be the only treatment needed if your condition and symptoms are mild. ??? Medicines to relieve your symptoms, including: ? Medicines to shrink the prostate. ? Medicines to relax the muscle of the prostate. ??? Surgery in severe cases. Surgery may include: [...] the urethra. Follow these instructions at home: ??? Take otmf-xbe-pjvqelf and prescription medicines only as told by your health care provider. ??? Monitor your symptoms for any changes. Contact your health care provider with any changes. ??? Avoid drinking large amounts of liquid before going to bed or out in public. ??? Avoid or reduce how much caffeine or alcohol you drink. ??? Give yourself time when you urinate. ??? Keep all follow-up visits. This is important. Contact a health care provider if: ??? You have unexplained back pain. ??? Your symptoms do not get (more content not included)... [facility] 03-02-2024 Note Patient Education Urology Acute Urinary [...] these instructions at home: Medicines ??? Take dsaj-uao-bqxekkr and prescription medicines only as told by [...] provider. Document Revised: 11/27/2020 Document Reviewed: 11/27/2020 [employer] Patient Education ? 2023 [employer] [facility] 03-01-2024 History of Present illness Narrative Subjective [...] to retrieve his recent lab work from [facility] 5. I will see him back [...] discussion and plan. documented in this encounter [facility] Work Phone: 03-01-2024 Instructions Betzaida Denney [...] instructions on exercise. documented in this encounter [facility] Work Phone: 02-14-2024 Note Patient Education [...] to the c (more content not included)... [facility] 01-31-2024 Note Patient Education Urology Acute Urinary [...] these instructions at home: Medicines ??? Take uxpw-dca-pumjvjt and prescription medicines only as told by [...] provider. Document Revised: 11/27/2020 Document Reviewed: 11/27/2020 [employer] Patient Education ? 2023 [employer] Benign Prostatic Hyperplasia Benign prostatic hyperplasia (BPH) is an enlarged prostate gland that is caused by the normal aging proc (more content not included)... [facility] 01-17-2024 History of Present illness Narrative Images [...] given intertriginous involvement, topical steroids contraindicated for jail use in this area and he has [...] 1 year documented in this encounter [facility] 12-27-2023 Note Progress Note-Asaf tapia Patient: [...] day(s), # 6 tab(s), Refills(s) 0, Pharmacy: [email or web address] #[id number], 177, cm, 12/27/23 11:02:00 EDT, Height/Length Dosing, 104, kg, 12/27/23 11:02:00 EDT, Weight Dosing [place] 325 mg-5 mg oral tablet: 1 tab(s), Oral, q6hr for pain, 4 tab(s), Refill(s) 0, Take 1 tablet an hour before procedure, post procedure prn, [facility] #[id number], 177, cm, 12/27/23 11:02:00 EDT, Height/Length Dosing, 104, kg, 12/27/23 11:02:00 EDT, Weight Dosing sildenafil 100 mg Tab: 100 mg = 1 tab(s), Oral, As Directed, PRN for erectile dysfunction, Take one tab 1 hour prior to sexual activity., # 30 tab(s), Refills(s) 3, Pharmacy: [facility] #[id number], 177.8, cm, 06/16/23 10:18:00 EDT, Height/Length Dosing, 104.8, kg, 06/16/23 10:18:... terazosin 10 mg Cap: 10 mg = 1 cap(s), Oral, Once a day (at bedtime), # 90 cap(s), Refills(s) 3, Pharmacy: [facility], 177, cm, 12/27/23 11:02:00 EDT, Height/Length Dosing, 104, kg, 12/27/23 11:02:00 EDT, Weight Dosing traMADOL 50 mg Tab: 50 mg = 1 tab(s), Oral, q6hr, Take as needed for pain., # 6 tab(s), Refills(s) 0, Pharmacy: [facility] #[id number], 177.8, cm, 11/12/23 15:35:00 EDT, Height/Length Dosing, [...] Plan: Diagnosis: Prostate hyperplasia with urinary obstruction (IOD81-LV N40.1, Discharge, Medical), Feeling of incomplete bladder emptying (CLR01-GU R39.14, Working, Medical), Anticoagulated (BNX51-QS Z79.01, Discharge, Medical). 78 yo male here [...] and Valium prior to procedure. 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 The procedural risks, benefits, details, and treatment alternatives have been discussed with the patient. These include bleeding, infection, continued problems urinating, increased frequency with urgency during the healing process, painful urination, need for indwelling cathete (more content not included)... [facility] Comment on above: Result Comment: Elec tronically [...] you have a fever over 100 degrees. [facility] 12-14-2023 History of Present illness Narrative Images [...] Actinic keratosis COPD (chronic obstructive pulmonary disease) ([facility]) Coronary heart disease ([facility]/H[facility]) Diabetes mellitus, type 2 ([facility]/HCC) HTN (hypertension) ([facility]) Hx of psoriasis Kidney disease PA (myocardial infarction) ([facility]) VIRGILIO (obstructive sleep apnea) Pacemaker Squamous [...] was counselled on the risk of stroke, PA, and sudden with VIRGILIO, along with the [...] to clinic: documented in this encounter [facility] 11-12-2023 Note Patient Education Urology Benign [...] Follow these instructions at home: ? Take vveg-nfh-qurpftt and prescription medicines only as told by [...] develop side effec (more content not included)... [facility] 10-14-2023 Note ED Patient Education Note Orthopedics [...] under your knee. General instructions ? Take enkh-tof-evvjfxt and prescription medicines only as told by [...] provider. Document Revised: 08/21/2020 Document Reviewed: 08/21/2020 [employer] Patient Education ? 2022 [employer] [facility] 08-25-2023 History of Present illness Narrative Subjective [...] name below, I, Alberta Soto LPN , Scribe attest that this documentation [...] discussion and plan. documented in this encounter [facility] Work Phone: 08-25-2023 Instructions Jo Ann [...] of your visit. documented in this encounter [facility] Work Phone: 02-10-2023 History of Present [...] recent pacemaker checks. documented in this encounter [facility] Work Phone: 02-10-2023 Instructions Alize James [...] up per routine documented in this encounter [facility] Work Phone: 05-14-2022 Note PROCEDURE: XR [...] by: JOE DU Date: 2022-05-14 18:40 [facility] Evaluation note Diagnosis Sick sinus syndrome (CMS/HCC)- Primary Sinoatrial node dysfunction Mobitz type II atrioventricular block Mobitz (type) II atrioventricular block Pacemaker Cardiac pacemaker in situ Essential hypertension Unspecified essential hypertension Dilated cardiomyopathy (CMS/HCC) Other primary cardiomyopathies Paroxysmal atrial fibrillation (CMS/HCC) Atrial fibrillation documented in this encounter [facility] Work Phone: Evaluation note* Diagnosis Essential hypertension- Primary Unspecified essential hypertension Sick sinus syndrome (Multi) Sinoatrial node dysfunction Mixed hyperlipidemia Paroxysmal atrial fibrillation (Multi) Atrial fibrillation Dilated cardiomyopathy (Multi) Other primary cardiomyopathies Pacemaker Cardiac pacemaker in situ BMI 33.0-33.9,adult documented in this encounter [facility] Work Phone: Evaluation note* Diagnosis Other atopic dermatitis- Primary Seborrheic keratosis Lentigines History of SCC (squamous cell carcinoma) of skin Personal history of other malignant neoplasm of skin documented in this encounter [facility] HealthcareEvaluation note* Diagnosis Paroxysmal atrial fibrillation (Multi)- Primary Atrial fibrillation Sick sinus syndrome (Multi) Sinoatrial node dysfunction Pacemaker Cardiac pacemaker in situ Essential hypertension Unspecified essential hypertension Cardiomyopathy, unspecified type (Multi) Mixed hyperlipidemia Stage 4 chronic kidney disease (Multi) Non-smoker BMI 30.0-30.9,adult documented in this encounter [facility] Work Phone: Evaluation note* Diagnosis VIRGILIO (obstructive sleep apnea)- Primary Obstructive sleep apnea (adult) (pediatric) Hypersomnia Hypersomnia, unspecified PLMD (periodic limb movement disorder) Periodic limb movement disorder Obesity due to excess calories, unspecified classification, unspecified whether serious comorbidity present Snoring Other dyspnea and respiratory abnormality documented in this encounter [facility] HealthcareEvaluation noteNo assessment information available[facility] Work Phone: History of Present illness NarrativePatient [...] on the basis of his improve lifestyle modification.[facility] 250 DO Work Phone: History of [...] the merits of diet and weight loss. 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 [facility] 600 DO Work Phone: Reason for referral (narrative)* Consultation (Routine) - Authorized Specialty Diagnoses / Procedures Referred By Elida t Referred To Contact Cardiology Diagnoses Sick sinus syndrome (CMS/HCC) Procedures Follow Up In Cardiology Varghese Caal MD [address], [address] [address] Varghese Caal MD [address], [address] [address] Referral ID Status Reason Start Date Expiration Date V isits Requested Visits Authorized [id number] Authorized 02/10/2023 02/10/2024 1 1 [facility] Work Phone: Reason for referral (narrative)* Consultation (Routine) - Authorized Specialty Diagnoses / Procedures Referred By Contac t Referred To Contact Cardiology Diagnoses Sick sinus syndrome (Multi) Procedures Follow Up In Cardiology Varghese Caal MD [address] [place] [address] [address], [address] [address] Osvaldo Dickinson MD [address] [place] [address] [address], [address] [address] Referral ID Status Reason Start Date Expiration Date V isits Requested Visits Authorized [id number] Authorized 08/25/2023 08/24/2024 1 1 [facility] Work Phone: Chief Complaint LEIGHTON ARCINIEGA [...] DATE CREATED AUTHOR AUTHOR'S ORGANIZ ATION 11/05/2022 [facility] DATE CREATED AUTHOR AUTHOR'S ORGANIZ ATION [facility]2023 [facility] DATE CREATED AUTHOR AUTHOR'S ORGANIZ ATION 01/18/2024 [facility] dical [facility] EPIC DATE CREATED AUTHOR AUTHOR'S ORGANIZ ATION 02/21/2024 [facility] DATE CREATED AUTHOR AUTHOR'S ORGANIZ ATION 03/04/2024 [facility] DATE CREATED AUTHOR AUTHOR'S ORGANIZ ATION 04/02/2024 [facility] ical Center DATE CREATED AUTHOR AUTHOR'S ORGANIZ ATION 04/07/2024 [facility] ical Center DATE CREATED AUTHOR AUTHOR'S ORGANIZ ATION 04/13/2024 [facility] DATE CREATED AUTHOR AUTHOR'S ORGANIZ ATION 04/13/2024 [facility] Reason for Visit (unrecogniz ed section and content) Reason Comments Follow-up 6-9mo Reason Comments Follow-up 6-9 months Specialty Diagnoses / Procedures Referred By Elida gifford Referred To Contact Cardiology Diagnoses Sick sinus syndrome (Multi) Procedures Follow Up In Cardiology Varghese Caal MD [address] [place] [address], [address] [address] Varghese Caal MD [address] [place] [address], [address] [address] Referral ID Status Reason Start Date Expiration Date V isits Requested Visits Authorized [id number] Authorized 02/10/2023 02/10/2024 1 1 Reason Comments Skin Check Follow-up Reason Comments Follow-up 6-9 months Specialty Diagnoses / Procedures Referred By Elida gifford Referred To Contact Cardiology Diagnoses Sick sinus syndrome (Multi) Procedures Follow Up In Cardiology Varghese Caal MD Traboulssi, MD Osvaldo 7[address] [facility] [address] [address] Phone: tel: fax: Referral ID Status Reason Start Date Expiration Date V isits Requested Visits Authorized [id number] Authorized 08/25/2023 08/24/2024 1 1 Reason Comments Sleep Apnea Care Teams (unrecognized sec tion and content) Cold Header Operator Relationship Specialty Start Date End Date Andrea Espinoza DO [address] [place] [id number] PCP - General 03/22/99 Cold Header Operator Relationship Specialty Start Date End Date Andrea Espinoza DO [address] [place] [address] PCP - General 03/22/99 Cold Header Operator Relationship Specialty Start Date End Date Lori Medina MD [address] [place] [id number] PCP - General Family Medicine 10/09/22 Cold Header Operator Relationship Specialty Start Date End Date Andrea Espinoza DO [address] [place] [id number] PCP - General 03/22/99 Cold Header Operator Relationship Specialty Start Date End Date Lori Medina MD [address] [place] [id number] [phone] PCP - General Family Medicine 10/09/22 Cold Header Operator Relationship Specialty Start Date End Date Lori Medina MD [address] [facility] [place] [address] PCP - General Family Medicine 10/09/22 Team Status: Inactive Member Role Status Dates Benton Vasquez , Attending Provider Active S tart: March 11, 2024 End: March 11, 2024 Team Status: Inactive Member Role Status Dates Benton Vasquez , Attending Provider Active S tart: March 28, [...] BE BASED ON THE PRIMARY CLINICAL RECORDS. [employer] [facility]. provides no warranty or guarantee of the accuracy or completeness of information in this document.
--- NOTE | 2024-04-15 19:55 | ED_ITS ---
HPI - SOB/Dyspnea General Chief Complaint: Shortness of Breath/Dyspnea Stated Complaint: sob Time Seen by Provider: 04/15/24 19:41 Source: patient Mode of arrival: Wheelchair Limitations: no limitations History of Present Illness HPI Narrative: This 78-year-old male who was recently admitted to this facility for pneumonia presents for evaluation of worsening shortness of breath. The patient states he has a history of mild COPD. He also has atrial fibrillation and is on Eliquis. He states he felt like he was recovering well at home until earlier today when he became increasingly short of breath and had chills. He has a cough with productive yellow phlegm. He has had some mild nausea. He has not had any vomiting or diarrhea. He states he has mild pain in his chest with coughing as well as pain in his abdominal muscles with coughing. He has a pacemaker. Related Data Home Medications ?Medication ?Instructions ?Recorded ?Confirmed acetaminophen 500 mg capsule 1,000 mg PO Q6H PRN fever or pain 02/26/24 04/15/24 allopurinol 300 mg tablet 300 mg PO DAILY 02/26/24 04/15/24 amlodipine 10 mg tablet 10 mg PO DAILY 02/26/24 04/15/24 apixaban 5 mg tablet (Eliquis) 5 mg PO Q12H 02/26/24 04/15/24 aspirin 81 mg tablet,delayed 81 mg PO .weekly 02/26/24 04/15/24 release (Adult Aspirin Regimen) calcium 315 mg (as 1 tab PO DAILY 02/26/24 04/15/24 citrate)-vitamin D3 5 mcg (200 unit) tablet (Calcium Citrate + D) carvedilol 6.25 mg tablet 6.25 mg PO Q12H 02/26/24 04/15/24 cyanocobalamin (vitamin B-12) 1,000 mcg PO DAILY 02/26/24 04/15/24 1,000 mcg tablet (Vitamin B-12) ferrous sulfate 325 mg (65 mg 325 mg PO DAILY 02/26/24 04/15/24 iron) tablet (iron) furosemide 20 mg tablet 20 mg PO Q12H 02/26/24 04/15/24 glipizide 10 mg tablet 10 mg PO BID 02/26/24 04/15/24 hydralazine 50 mg tablet 100 mg PO Q8H 02/26/24 04/15/24 insulin glargine 100 unit/mL (3 26 unit subcut BID 02/26/24 04/15/24 mL) subcutaneous pen multivitamin (Daily Multi-Vitamin 1 tab PO DAILY 02/26/24 04/15/24 tablet) omeprazole 20 mg capsule,delayed 20 mg PO DAILY 02/26/24 04/15/24 release semaglutide 1 mg/dose (4 mg/3 mL) 1 mg subcut QWEEK 02/26/24 04/15/24 subcutaneous pen injector (Ozempic) sildenafil 100 mg tablet 100 mg PO Q24H PRN sexual activity 02/26/24 04/15/24 simvastatin 20 mg tablet 20 mg PO DAILY 02/26/24 04/15/24 spironolactone 25 mg tablet 25 mg PO DAILY 02/26/24 04/15/24 tacrolimus 0.1 % topical ointment 1 applic topical Q12H PRN skin 02/26/24 04/15/24 irritation terazosin 10 mg capsule 10 mg PO BEDTIME 02/26/24 04/15/24 diclofenac sodium 1 % topical gel 2 g topical BID 04/05/24 04/15/24 ruxolitinib 1.5 % topical cream 1 applic topical BID PRN dermatitis 04/05/24 04/15/24 (Opzelura) tolterodine 2 mg capsule,extended 2 mg PO Q24H 04/05/24 04/15/24 release 24 hr fluconazole 100 mg tablet 200 mg PO Q24H 04/15/24 04/15/24 Previous Rx's ?Medication ?Instructions ?Recorded hyoscyamine sulfate 0.125 mg 0.125 mg sublingual QID #40 tabs 03/30/24 sublingual tablet mirabegron 25 mg tablet,extended 25 mg PO DAILY #30 tabs 03/30/24 release 24 hr (Myrbetriq) benzonatate 100 mg capsule 200 mg (2 x 100 mg) PO Q8H PRN 04/08/24 Cough #24 caps levofloxacin 750 mg tablet 750 mg PO DAILY 7 days #7 tabs 04/08/24 Allergies Allergy/AdvReac Type Severity Reaction Status Date / Time fosinopril (From Monopril) Allergy Severe shortness Verified 04/05/24 20:09 of breath metoprolol Allergy Severe shortness Verified 04/05/24 20:09 of breath strawberry Allergy Severe Rash Verified 04/05/24 20:09 Review of Systems ROS Status of ROS 10 or more systems reviewed and unremark able except as noted in history and below [facility] Medical History (Updated 04/15/24 @ 21:39 by Daica Rene MD) Severe sepsis ?A41.9 - Sepsis, unspecified organism (ICD-10) ?R65.20 - Severe sepsis without septic shock (ICD-10) COPD exacerbation ?J44.1 - Chronic obstructive pulmonary disease with (acute) exacerbation (ICD-10) Acute exacerbation of chronic heart failure ?I50.9 - Heart failure, unspecified (ICD-10) Acute hypoxemic respiratory failure ?J96.01 - Acute respiratory failure with hypoxia (ICD-10) Pneumonia ?J18.9 - Pneumonia, unspecified organism (ICD-10) Acute kidney injury ?N17.9 - Acute kidney failure, unspecified (ICD-10) Bladder spasm ?N32.89 - Other specified disorders of bladder (ICD-10) Urinary tract infection ?N39.0 - Urinary tract infection, site not specified (ICD-10) Urinary tract infection ?N39.0 - Urinary tract infection, site not specified (ICD-10) Failure of outpatient treatment ?Z78.9 - Other specified health status (ICD-10) Urinary tract infection ?N39.0 - Urinary tract infection, site not specified (ICD-10) Skin cancer ?C44.90 - Unspecified malignant neoplasm of skin, unspecified (ICD-10) Myocardial infarction ?I21.9 - Acute myocardial infarction, unspecified (ICD-10) Pacemaker ?Z95.0 - Presence of cardiac pacemaker (ICD-10) CKD (chronic kidney disease) ?N18.9 - Chronic kidney disease, unspecified (ICD-10) CAD (coronary artery disease) ?I25.10 - Atherosclerotic heart disease of [place] coronary artery without angina pectoris (ICD-10) A-fib ?I48.91 - Unspecified atrial fibrillation (ICD-10) Erectile dysfunction ?N52.9 - Male erectile dysfunction, unspecified (ICD-10) UTI (urinary tract infection) ?N39.0 - Urinary tract infection, site not specified (ICD-10) GERD (gastroesophageal reflux disease) ?K21.9 - Gastro-esophageal reflux disease without esophagitis (ICD-10) Hypertension ?I10 - Essential (primary) hypertension (ICD-10) Diabetes ?E11.9 - Type 2 diabetes mellitus without complications (ICD-10) Surgical History History of arthroscopic knee surgery ?Z98.890 - Other specified postprocedural states (ICD-10) Hx of tonsillectomy ?Z90.89 - Acquired absence of other organs (ICD-10) Family History Mother Family history of CHF (congestive heart failure) Family history of myocardial infarction Family history of hypertension Family history of diabetes mellitus Family history of COPD (chronic obstructive pulmonary disease) Grandmother Family history of CHF (congestive heart failure) Brother Family history of CHF (congestive heart failure) Family history of myocardial infarction Family history of hypertension Family history of COPD (chronic obstructive pulmonary disease) Father Kidney failure Social History Within the past year, how often did you have a drink containing alcohol: never Score interpretation: A score less than 4 is consistent with normal alcohol consumption. Smoking status: Former smoker Non-prescribed substance use: denies use Known occupational exposures/hazards: No Highest level of school completed/degree received: some college, no degree Do you want help with school or training: No Little interest or pleasure in doing things: not at all Feeling down, depressed, or hopeless: not at all Gender Identity: male Exam Narrative Exam Narrative: Vital signs and Nursing Notes reviewed: Patient is afebrile, he is mildly tachycardic with a pulse of 103 with a normal blood pressure, he is tachypneic with a respiratory rate of 28 and moderately hypoxic with pulse ox of 92% on room air General: Awake, alert, oriented, nontoxic but mildly uncomfortable appearing adult male, speaking complete sentences, no sheree respiratory distress HEENT: Normocephalic atraumatic, mucous membranes are moist and pink, eyes are clear, normal conjunctiva, vision is grossly intact, posterior pharynx is normal in appearance. Neck: Supple, no jvd Chest: Bibasilar rales are appreciated with mild conversational dyspnea, pulse ox on room air is 92% CVS: Regular rate and rhythm S1-S2, no murmurs rubs or gallops, pulses are brisk and equal bilaterally ABD: Soft, nondistended, nontender, no rebound guarding or rigidity, bowel sounds are normal, no pulsatile masses appreciated Extremities: Moving all extremities, no lower extremity tenderness or swelling noted, negative Homans' sign, pulses are brisk and equal bilaterally Skin: Normal in appearance without rash,pallor, petechiae or purpura Neuro: No focal deficits Constitutional Vital Signs, click to edit/add: Last Vital Signs Temp 97.8 F 04/15/24 19:41 Pulse 95 H 04/15/24 21:20 Resp 19 04/15/24 21:20 BP 135/78 04/15/24 21:08 Pulse Ox 93 L 04/15/24 21:20 O2 Del Method Nasal Cannula 04/15/24 20:50 O2 Flow Rate 2 04/15/24 20:50 Course Vital Signs Vital signs: Vital Signs Temperature 97.8 F 04/15/24 19:41 Pulse Rate 103 H 04/15/24 19:41 Respiratory Rate 28 H 04/15/24 19:41 Blood Pressure 134/77 04/15/24 19:41 Pulse Oximetry 92 L 04/15/24 19:41 Oxygen Delivery Method Room Air 04/15/24 19:41 Temperature 97.8 F 04/15/24 19:41 Pulse Rate 95 H 04/15/24 21:20 Respiratory Rate 19 04/15/24 21:20 Blood Pressure 135/78 04/15/24 21:08 Pulse Oximetry 93 L 04/15/24 21:20 Oxygen Delivery Method Nasal Cannula 04/15/24 20:50 Oxygen Delivery Flow Rate 2 04/15/24 20:50 MDM - SOB/Dyspnea MDM Narrative Medical decision making narrative: This 78-year-old male with a history of mild COPD who has a history of atrial fibrillation and a pacemaker and is on Eliquis and was recently admitted to this facility for pneumonia presents for evaluation of worsening shortness of breath starting earlier today. He has a productive cough of yellow brown phlegm. The patient states he felt like he was improving after being admitted to the hospital. He was discharged home on Levaquin. His shortness of breath worsened over the past 24 hours. He does not wear oxygen typically but upon arrival was noted to be hypoxic with pulse ox of 90% on room air. He was placed on supplemental oxygen with clinical improvement. His physical exam is benign with bibasilar rales, pulses are brisk and equal. EKG done upon arrival was a paced rhythm of atrial fibrillation. An IV was placed and routine labs are ordered. His white count is elevated at 11.9, his hemoglobin is stable. Electrolytes are normal. He does have a history of chronic renal insufficiency and appears to be at his baseline with a BUN of 36 and a creatinine of 2.02. He had a normal troponin. His BNP was markedly elevated at 22,662. COVID 19 and Influenza testing are negative. Chest x-ray shows right sided infiltrate versus pulmonary vascular congestion. Blood cultures are pending. He was medicated with IV Zosyn and vancomycin for the pneumonia component since he was recently hospitalized and given 40 mg of IV Lasix for the CHF. He was recently seen after his admission for urinary retention and has an indwelling Gomez catheter. Differential Diagnosis Differential diagnosis: Likely acute exacerbation of chronic obstructive airways disease and congestive heart failure Medical Records Attestation: I reviewed the patient's medical records. Medical records narrative: The [address] [address] XRay Report Signed Patient: LEIGHTON ARCINIEGA MR#: [id number] : 1945 Acct:[id number] Age/Sex: 78 / M ADM Date: 04/15/24 Loc: ER Attending Dr: Ordering Physician: Dacia Rene Date of Service: 04/15/24 Procedure(s): XR chest 2V Accession Number(s): [id number] cc: Jayy Dutta M.D.; Dacia Rene~ The [address] [address] Patient Name: LEIGHTON ARCINIEGA MRN: [id number] date: 1945 Sex: M Assigned Patient Location: ER Current Patient Location: ER Accession/Order Number: [id number] Exam Date: 04/15/2024 20:15 Report Date: 04/15/2024 21:03 At the request of: DACIA RENE Procedure: XR chest 2V EXAM: XR chest 2V TECHNIQUE: PA and lateral view of the chest HISTORY: sob, recent hx pneumonia COMPARISON: None. FINDINGS: Heart and mediastinum are unremarkable. There is interstitial infiltrate throughout the right lower lung field. Pulmonary venous congestion. Osseous structures are intact. Left-sided pacemaker. XR/XR chest 2V IMPRESSION: Interstitial infiltrate throughout the right lower lung field suggesting atypical pneumonia. Pulmonary venous congestion. Electronically authenticated by: SAMUEL SU Date: 04/15/2024 21:03 Lab Data Attestation: I reviewed the patient's lab results. Labs: Lab Results 04/15/24 04/15/24 Range/Units 19:50 21:17 WBC 11.9 H (4.0-11.0) 10^3/uL RBC 3.46 L (4.70-6.10) 10^6/uL Hgb 11.1 L (14.0-18.0) g/dL Hct 33.2 L (42.0-54.0) % MCV 96.0 H (80.0-94.0) fL MCH 32.1 (25.9-34.0) pg MCHC 33.4 (29.9-35.2) g/dL RDW 14.0 (11.0-15.0) % Plt Count 263 (150-450) 10^3/uL MPV 8.3 L (9.5-13.5) fL Neut % (Auto) 77.8 H (43.0-75.0) % Lymph % (Auto) 11.4 L (20.5-60.0) % Dixie % (Auto) 8.7 (1.7-12.0) % Eos % (Auto) 1.1 (0.9-7.0) % Baso % (Auto) 0.3 (0.2-2.0) % Neut # (Auto) 9.3 H (1.4-6.5) 10^3/uL Lymph # (Auto) 1.4 (1.2-3.8) 10^3/uL Dixie # (Auto) 1.0 H (0.3-0.8) 10^3/uL Eos # (Auto) 0.1 (0.0-0.7) 10^3/uL Baso # (Auto) 0.0 (0.0-0.1) 10^3/uL Abs Immat Gran (auto) 0.08 H (0.00-0.03) 10^3/uL Imm/Tot Granulo (auto) 0.7 H (0.0-0.5) % Sodium 135 L (136-145) mmol/L Potassium 4.1 (3.5-5.1) mmol/L Chloride 101 (98-107) mmol/L Carbon Dioxide 23.1 (21.0-32.0) mmol/L Anion Gap 15.0 BUN 36.0 H (7.0-18.0) mg/dL Creatinine 2.02 H (0.70-1.30) mg/dL Est GFR ( Amer) 39 L (>=60 mL/min/1.73m^2) Est GFR (Non-Af Amer) 32 L (>=60 mL/min/1.73m^2) BUN/Creatinine Ratio 17.8 Glucose 153 H (74-106) mg/dL Lactate 1.6 (0.4-2.0) mmol/L Calcium 8.9 (8.5-10.1) mg/dL Total Bilirubin 0.4 (0.2-1.0) mg/dL AST 14 L (15-37) U/L ALT 18 (16-63) U/L Alkaline Phosphatase 71 (46-116) U/L Troponin I High Sens 42.0 (4.0-76.1) pg/mL NT-Pro-B Natriuret Pep 95169.0 H* (<=1800.0) pg/mL Total Protein 6.6 (6.4-8.2) g/dL Albumin 2.5 L (3.4-5.0) g/dL Globulin 4.1 g/dL Albumin/Globulin Ratio 0.6 Influenza Type A Ag Negative Influenza Type B Ag Negative SARS-CoV-2 Ag (CV2AG) Negative (NEGATIVE) ABG Data ABG results: The [address] [address] Cardiology Report Signed Patient: LEIGHTON ARCINIEGA MR#: [id number] : 1945 Acct:[id number] Age/Sex: 78 / M ADM Date: 04/05/24 Loc: [place] 213-[address]: Jayy Dutta M.D. Ordering Physician: Jayy Dutta M.D. Date of Service: 04/06/24 Procedure(s): CA echo doppler complete Accession Number(s): [id number] cc: Jayy Dutta M.D.~ Patient Name: LEIGHTON ARCINIEGA MR#: [id number] : 1945 Exam Date: 04/06/2024 Ordering Doctor: DR Jayy Dutta . ECHOCARDIOGRAM REPORT PROCEDURE: CA ECHO DOPPLER COMPLETE INDICATIONS: chf, pacemaker, elevated BNP, hypertension, diabetes, h/o HI COMPARISON: None. DESCRIPTION: COMPLETE ECHOCARDIOGRAM Real-time transthoracic echocardiography with 2D, M-mode, spectral and color flow Doppler performed. QUALITY: Technical quality was good. LEFT VENTRICLE: Normal chamber size. Thickened septal wall. Abnormal septal motion likely due to pacing. Systolic function is at the lower limits of normal. LV EF: Lower limits of normal left ventricular ejection fraction, (50%). DIASTOLIC: Grade II diastolic dysfunction. ATRIAL SEPTUM: LEFT ATRIUM: Mild dilatation. RIGHT ATRIUM: Mild dilatation. RIGHT VENTRICLE: Normal chamber size. Normal systolic function. Pacer wire present. TRICUSPID VALVE: Normal mobility and thickness. No stenosis with trivial regurgitation. Doppler studies reveal moderately (45-60) elevated right sided pressures. RVSP 48 mmHg MITRAL VALVE: Normal mobility and thickness. No evidence of mitral valve stenosis. There is no mitral annular calcification. Mild mitral regurgitation. AORTIC VALVE: Normal trileaflet appearance. Mildly calcified aortic valve. Normal leaflet mobility. No evidence of aortic valve stenosis. No aortic regurgitation. AORTIC ROOT: Normal diameter and appearance. Ascending aorta is normal in size. PULMONIC VALVE: Normal thickness and mobility. No stenosis. No regurgitation. PERICARDIUM: No evidence of pericardial effusion. IVC: IVC is dilated (2.6 cm), does not fully collapse. PLEURA: CONCLUSION: 1. Left ventricular systolic function is at the lower limits of normal. LVEF is estimated at 50%. 2. Normal right ventricular size and systolic function. 3. Grade II diastolic dysfunction. 4. Mild mitral regurgitation. 5. Moderately elevated right sided pressures. Adult Echocardiography Procedure Report Left Ventricle LVEDD (3.7 - 5.6 cm): 5.66 cm LVESD (2.2 - 4.0 cm): 4.73 cm LVIVS thickness (0.6 - 1.2 cm): 1.38 cm LVPW thickness (0.5 - 1.0 cm): 1.00 cm e': 0.07 m/s E - e': 10.85 LVOT Max Gradient: 3.59 mm[Hg], 1.68 mm[Hg], 3.99 mm[Hg] LVOT Area (cm2): 0.86 m/s Peak Velocity (LVOT): 0.95 m/s, 0.65 m/s, 1.00 m/s LVOT Diameter 2.31 cm Left Atrium LA Volume Index (2D A2C): 38.10 ml/m2 Left Atrium Systolic Dimension: 4.22 cm Mitral Valve MV E to A Ratio: 0.78 Mitral Valve A-Wave Peak Velocity: 0.92 m/s Mitral Valve E-Wave Peak Velocity: 0.72 m/s Right Ventricle Aorta AO Root Diam: 3.39 cm Ascending Ao Diam: 3.23 cm Aortic Valve AoV Area (Peak Ajay): 2.44 cm2, 2.43 cm2, 1.59 cm2, 3.78 cm2 Peak Velocity(Antegrade Flow): 1.63 m/s, 1.71 m/s, 1.11 m/s Peak Gradient(Antegrade Flow): 10.67 mm[Hg], 11.67 mm[Hg], 4.90 mm[Hg] Tricuspid Valve Peak Velocity (Regurgitant Flow): 2.86 m/s, 2.86 m/s Pulmonic Valve Mean Gradient: 2.77 mm[Hg] Mean Velocity: 0.77 m/s Peak Velocity: 1.16 m/s, 1.07 m/s Peak Gradient: 4.61 mm[Hg], 5.37 mm[Hg] Right Atrium Right Atrium Systolic Pressure: 70.19 ml, 70.19 ml Dictated by: John Armstrong M.D. on 04/08/2024 at 13:30 Approved by: John Armstrong M.D. on 04/08/2024 at 13:37 ECG Data Attestation: I personally reviewed and interpreted this ECG as follows: (Paced rhythm at [address] changes) Discharge Plan Discharge Chief Complaint: Shortness of Breath/Dyspnea Clinical Impression: Congestive heart failure, Shortness of breath Patient Disposition: Admitted as Observation Time of Disposition Decision: 21:39
[2024-04-15 20:17] LABS: Basophils Percent Auto 0.3 % (0.2-2.0); Eosinophils Absolute Auto 0.1 10^3/uL (0.0-0.7); Eosinophils Percent Auto 1.1 % (0.9-7.0); Hematocrit 33.2 % (42.0-54.0); Hemoglobin 11.1 g/dL (14.0-18.0); Immature Granulocytes Abs Auto 0.08 10^3/uL (0.00-0.03); Immature Granulocytes Pct Auto 0.7 % (0.0-0.5); Lymphocytes Absolute Auto 1.4 10^3/uL (1.2-3.8); Lymphocytes Percent Auto 11.4 % (20.5-60.0); Mean Corpuscular HGB Conc 33.4 g/dL (29.9-35.2); Mean Corpuscular Hemoglobin 32.1 pg (25.9-34.0); Mean Platelet Volume 8.3 fL (9.5-13.5); Monocytes Percent Auto 8.7 % (1.7-12.0); Neutrophils Absolute Auto 9.3 10^3/uL (1.4-6.5); Neutrophils Percent Auto 77.8 % (43.0-75.0); Platelet Count 263 10^3/uL (150-450); Red Blood Count 3.46 10^6/uL (4.70-6.10); White Blood Count 11.9 10^3/uL (4.0-11.0)
--- NOTE | 2024-04-15 20:25 | XR_ITS ---
The [address] [address] Patient Name: LEIGHTON ARCINIEGA MRN: [id number] date: 1945 Sex: M Assigned Patient Location: ER Current Patient Location: ER Accession/Order Number: [id number] Exam Date: 04/15/2024 20:15 Report Date: 04/15/2024 21:03 At the request of: NIKKI MARKER Procedure: XR chest 2V EXAM: XR chest 2V TECHNIQUE: PA and lateral view of the chest HISTORY: sob, recent hx pneumonia COMPARISON: None. FINDINGS: Heart and mediastinum are unremarkable. There is interstitial infiltrate throughout the right lower lung field. Pulmonary venous congestion. Osseous structures are intact. Left-sided pacemaker. XR/XR chest 2V IMPRESSION: Interstitial infiltrate throughout the right lower lung field suggesting atypical pneumonia. Pulmonary venous congestion. Electronically authenticated by: SAMUEL SU Date: 04/15/2024 21:03
--- NOTE | 2024-04-15 20:31 | PC.NURSE ---
SP02 on arrival was 90% on room air, patient was put on 2L oxygen per nasal cannula, oxygen up to 95%.
[2024-04-15 20:35] LABS: Lactate/Lactic Acid 1.6 mmol/L (0.4-2.0)
[2024-04-15 20:38] LABS: Alanine Aminotransferase 18 U/L (16-63); Albumin Globulin Ratio 0.6; Albumin Level 2.5 g/dL (3.4-5.0); Alkaline Phosphatase 71 U/L (46-116); Aspartate Amino Transferase 14 U/L (15-37); BUN Creatinine Ratio 17.8; Bilirubin Total 0.4 mg/dL (0.2-1.0); Calcium 8.9 mg/dL (8.5-10.1); Carbon Dioxide 23.1 mmol/L (21.0-32.0); Chloride 101 mmol/L (98-107); Estimated GFR (African America 39 (>=60 mL/min/1.73m^2); Estimated GFR (Non-African Ame 32 (>=60 mL/min/1.73m^2); Globulin 4.1 g/dL; Glucose 153 mg/dL (74-106); Potassium 4.1 mmol/L (3.5-5.1); Sodium 135 mmol/L (136-145); Total Protein 6.6 g/dL (6.4-8.2)
[2024-04-15] MEDS: IPRATROPIUM/ALBUTEROL SULFATE 3 ML AMPUL.NEB IH (20:56)
[2024-04-15] MEDS: FUROSEMIDE 40 MG/4 ML VIAL IVP (21:08)
[2024-04-15] MEDS: MAGNESIUM SULFATE IN WATER 2 G/50 ML PREMIX IV (21:12)
[2024-04-15] MEDS: PIPERACILLIN SODIUM/TAZOBACTAM 3.375 GM in 0.9 % SODIUM CHLORIDE 50 ML IV (21:35)
[2024-04-15 21:39] LABS: Influenza Virus A Antigen Negative; Influenza Virus B Antigen Negative; Internal Control Within Normal Limits; SARS-CoV-2 Ag NEGATIVE (NEGATIVE)
[2024-04-15] MEDS: VANCOMYCIN HCL 1,500 MG in 0.9 % SODIUM CHLORIDE 500 ML 250 MG IV (22:03)
--- OUTSIDE RECORDS SUMMARY | 2024-04-15 22:30 | XMS_ITS | CCD ---
Author Organization [facility] Care Team Providers Care Email Operations Manager Name Role Phone Andrea Espinoza Unavailable Unavailable [...] Unavailable Lori Medina MD Primary Care Provider [phone] BLANCA ALONSO Attending Unavailable PETITTGiovanna, BLANCA Juan Manuel Attending Unavailable DANK JONES Attending Unavailable PETTIM, BLANCA Zambrano Attending Unavailable CHUCK, BLANCA Zambrano Attending Unavailable BOBO BRENNER Attending Unavailable LORI MEDINA Primary Care Unavailable LORI MEDINA Primary Care Unavailable BEATA DEGROOT Attending Unavailable Andrea Espinoza DO Primary Care Provider [phone] VARGHESE CAAL Attending Unavailable VARGHESE CAAL P [...] sources) Enalapril; 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: [enalapril] Drug Allergy 02-10-20 [facility] (18 sources) Metoprolol; 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: [metoprolol] Drug Allergy 10-12-19 23 Cough, Unknown -[facility] y 250 DO Work Phone: (4 sources) Fosinopril; 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: [Monopril] Drug Allergy 03-16-20 14 [facility] (1 source) Metoprolol Drug Allergy 05-16-19 15 [facility] (1 source) strawberry allergenic extract Drug Allergy 05-16-19 15 [facility] (1 source) tomato allergenic extract Drug Allergy 05-16-19 15 [facility] (3 sources) hydroCHLOROthiazide / Metoprolol; 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: [hydrochlorothiazide-m etoprolol] Drug Allergy [facility] Repository (3 sources) [place]; 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: [Strawberries] Food allergy (disorder) [facility] Rep[facility] (3 sources) Tomatoes; 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: [Tomatoes] Food allergy (disorder) [facility] Rep[facility] (6 sources) Fosinopril; 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: [FOSINOPRIL] Drug [...] Start: 03-20-2020 take 2 tablets by [facility] three times daily hydrALAZINE HCl [...] sources) Polyene Antifungal Start: 08-10-2023 nystatin (Mycostatin) [id number] UNIT/GM powder Indications: Erythema intertrigo Apply to [...] Start: 01-14-2021 take 2 tablets by mo [facility] once daily Spironolactone 25 MG Oral Tablet [...] disease (2 sources) Atherosclerotic heart disease of [place] coronary artery without angina pectoris; 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: [Old [...] 06-01-2022 10-11-2022 Chronic Other aftercare (1 source) alf (current) use of aspirin; 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: [PIE CUTTER CURRENT USE OF ASPIRIN] Onset: 06-01-2022 Episodic Other aftercare (1 source) Other snf (current) drug therapy; 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: [OTH PRISON CURRENT [...] AM EST With: Where: [facility] [address] [place] [address] [place] [address]- Wednesday 1:00 PM EST With: Mica Car MD Where: [facility] [address] [address]- 2024 11:00 AM EDT With: Where: [facility] You Need to Schedule the Following Appointments Follow Up with Josep SANDHU, Mica Johns, URL, URO When: In 1 month Comments: w/PVR Where: Medications What How Much When Instructions New levofloxacin (Levaquin 500 mg Tab) 1 Tablets By Mouth Every 24 hours Duration: 3 [id number] Unchanged acetaminophen (Tylenol Extra Strength 500 mg [...] 3 time (more content not included)... Normal [facility] Urology Office/Clinic Noteon 04-12-2024 Urology Office/Clinic Note [...] not urinate so he went back to [facility] and they placed the Gomez. History [...] not urinate so he went back to [facility] and they placed the Gomez, PVR [...] urinary tract symptoms) S/p Rezum by Dr. Varags 09/16/16. Lasted over 5 yrs per pt. S/p Cystoscopy, TRUS 01/27/2024 - moderate to severe bilobar hypertrophy and elevated bladder neck, calculated prostate volume of 57.7 mL (On CT scan, ~ 80 g) S/p Rezum by [facility] 02/14/24 - 9 treatments, Rt side did [...] further bleeding since then. Pt went to [place] ER 02/26/24 d/t persistent dysuria. Admitted for 3 days. Received IV abx. Dc'd on Cipro x 10d and Levsin. Urine and blood cx both came back neg. [facility] ER 04/08/24 U.Cx was negative. Pt [...] be stoppe (more content not included)... Normal [facility] Comment on above: Result Comment: Elec tronically Signed By: Mica Car MD\.br\Date and Time Signed: 04/12/24 12:07 EST\.br\Electronically Co-Signed By: Kavita Mukherjee\.br\Date and Time Co-Signed: 04/12/24 11:48 EST Urine Cultureon 03-28-2024 Bacteria identified Cx Nom (U) No Growth 2 Days PERFORMED BY: [place] [address] PATHOLOGIST CORN MILLER OSCAR ESCOBAR M.D. Normal [facility] Comment on above: Performed By: #### C UU #### [address] C Urineon 03-26-2024 Bacteria identified Cx [...] Locations R1: This test was performed at: [facility], [address] [place] [address], [address]- , [place], Normal [facility] Comment on above: Performed By: #### 2 [id number] #### [facility] [address] [place] [address] Main OR Preoperative Recordo n 03-20-2024 Main OR Preoperative Record Main OR Preoperative Record Holding Area Document Type FTURO Summary Primary Physician: Mica Car MD Finalized Date/Time: 03/20/24 16:29:34 Pt. Name: LEIGHTON ARCINIEGA Tyrese Greenfield/Sex: 1945 Male Med Rec #: [id number] Physician: Mica Car MD Financial #: [id number] Pt. Type: O Room/Bed: / Admit/Disch: 12/27/23 [...] Complaints of Pain: No Skin Integrity Intact, [place], Warm, & Dry Vitals - EU Blood Pressure 122/75 Pulse 81 bpm Respirations 18 br/min SPO2 96 % Additional None RN Reviewed Yes Specimens Collected Last Modified By: Tunde GODINEZ, Ankita Willett 12/27/23 11:25:48 Finalized By: Kendrick GODINEZ, Dalia MARTINEZ Document Signatures Signed By: Latha David LPN 12/27/23 11:01 Latha David LPN 12/27/23 11:02 MICHELLE Marks RN, Ruthann 03/20/24 16:29 Normal [facility] Urine Cultureon 03-11-2024 Bacteria identified Cx Nom (U) ORGANISM: Prudence glabrata (O:CANGLA) [place] Count 75,000 PERFORMED BY: [place] [address] PATHOLOGIST CORN MILLER OSCAR ESCOBAR M.D. Normal [facility] Comment on above: Performed By: #### C UU #### [address] Urine cultureOrdered By: Derek Vasquez on 03-11-2024 Bacteria identified Cx Nom (U) Abnormal [facility] Urology Office/Clinic Noteon 03-02-2024 Urology Office/Clinic [...] that he had 3 day stay at [facility] on 02/26/24 for severe UTI & bladder [...] further bleeding since then. Pt went to [place] ER 02/26/24 d/t persistent dysuria. Admitted for [...] 124ml Told him to continue Alfuzosin. Ordered: [id number] Measure Post Void residual urine and/or bladder [...] Urnls Dip Stick Auto w/o Microscopy POC 62991 3. Anticoagulated (Z79.01: alf (current) use of anticoagulants) on Eliquis. Follow-up [...] Hypercholesteremia Inco (more content not included)... Normal [facility] Comment on above: Result Comment: Elec tronically Signed By: FELIPE BENDER, NATA Holt\.br\Date and Time Signed: 03/02/24 17:13 EST\.br\Electronically Co-Signed By: Martir Sheabr\Date and Time Co-Signed: 03/02/24 13:38 EST ECG 12 Leadon 03-01-2024 AV paced rhythm [facility] Work Phone: URINE CULTUREon 02-19-2024 Bacteria identified Cx Nom (U) CULTURE RESULTS 10-50,000 ORGANISMS/mL NORMAL UROGENITAL ELIN Normal [facility] Comment on above: Performed By: #### 6 30-4 #### [facility] ([id number]) [address] [place] [address], [address] [place] [address] URN MACROSCOPIC NURon 2023 [address]UB[address] LEHTA Negative Normal [facility] Comment on above: Performed By: #### N UM #### [facility] ([id number]) [address] [place] [address] BLOOD/HGB LETHA Large Abnormal NEG [facility] Comment on above: Performed By: #### N UM #### [facility] ([id number]) [address] [place] [address] GLUCOSE LETHA >=[address] [facility] Comment on above: Performed By: #### N UM #### [facility] ([id number]) [address] [place] [address] KETONES LETHA Negative Normal NEG [facility] Comment on above: Performed By: #### N UM #### [facility] ([id number]) [address] [place] [address] 17353 LEUKOCYTE ESTERASE LETHA Small Abnormal NEG [facility] Comment on above: Performed By: #### N UM #### [facility] ([id number]) [address] [place] [address] NITRITE LETHA Negative Normal NEG [facility] Comment on above: Performed By: #### N UM #### [facility] ([id number]) [address] [place] [address] 9[address] PH LETHA 6.0 Normal 5.0-8.5 [facility] Comment on above: Performed By: #### N UM #### [facility] ([id number]) [address] [place] [address] PROTEIN LETHA 100 mg/dL Abnormal NEG [facility] Comment on above: Performed By: #### N UM #### [facility] ([id number]) [address] [place] [address] 11751 SPECIFIC GRAVITY LETHA 1.015 Normal 1.003-1.035 [facility] Comment on above: Performed By: #### N UM #### [facility] ([id number]) [address] [place] [address] UROBILINOGEN LETHA 0.2 eu/dL Normal <1.1 [facility] Comment on above: Performed By: #### N UM #### [facility] ([id number]) [address] [place] [address] Inpatient Patient Summaryon 02-14-2024 Inpatient Patient Summary Inpatient Patient Summary [place] [address] Clinical Summary Person Information Name: LEIGHTON ARCINIEGA Age: 78 Years : 1945 Sex: Male PCP: Lori Medina MD Marital Status: Race: White Ethnicity: Non- or Language: Upper Sorbian Visit Id: Visit Reason: BPH WITH URINARY OBSTRUCTION Speciality: Acuity: Enc Type: Outpatient Med Service: Surgery Arrival: 02/14/2024 09:35:51 Discharge: Dispo Type: Address: [facility] LINDEN TONEY [address] [place] [phone] Provider Notes: Diagnosis: BPH with obstruction/lower urinary [...] day as needed for pain. acetaminophen-hydroc odone (Nekoosa 325 mg-5 mg oral tablet) 1 Tablets [...] EU - Rezum Discharge Instructions (CUSTOM) Normal [facility] Main OR Intraoperative Recor don 02-14-2024 Main OR Intraoperative Record Main OR Intraoperative Record IntraOp Document Type FTURO Summary Primary Physician: Mica Car MD Finalized Date/Time: 02/14/24 12:08:58 Pt. Name: LEIGHTON ARCINIEGA Gin/Sex: 1945 Male Med Rec #: [id number] Physician: Mica Car MD Financial #: [id number] Pt. Type: O Room/Bed: / Admit/Disch: 02/14/24 [...] Attendee Mica Car MD, Kelsie E McClain [facility], [facility] Role Performed Surgeon - Primary Power Switchboard Operator - Primary Scrub - Primary Time [...] Corral 02/14/24 12:08 Jocy Corral 02/14/24 12:08 [facility] Main OR Preoperative Recordo n 02-14-2024 Main OR Preoperative Record Main OR Preoperative Record Holding Area Document Type FTURO Summary Primary Physician: Mica Car MD Finalized Date/Time: 02/14/24 11:48:27 Pt. Name: LEIGHTON ARCINIEGA Tyrese Rolon/Sex: 1945 Male Med Rec #: [id number] Physician: Mica Car MD Financial #: [id number] Pt. Type: O Room/Bed: / Admit/Disch: 02/14/24 [...] Complaints of Pain: No Skin Integrity Intact, [place], Warm, & Dry Vitals - EU Blood Pressure 152/74 Pulse 61 bpm Respirations 18 br/min SPO2 97 % Additional None RN Reviewed Yes Specimens Collected Last Modified By: Jocy Corral 02/14/24 11:48:23 Finalized By: Jocy Corral Document Signatures Signed By: Latha David LPN 02/14/24 11:05 Jocy Corral Yanet 02/14/24 11:48 Jocy Corral 02/14/24 11:48 Normal [facility] Operative Reporton Operative Report Operative Report Patient: [...] clearer. Follow-up in 1 month PVR.. Normal [facility] Comment on above: Result Comment: Elec tronically Signed By: Mica Car MD\.br\Date and Time Signed: 02/14/24 12:03 EST Outpatient Surgery Discharge Instructionon 02-14-2024 Outpatient Surgery Discharge Instruction Outpatient Surgery Discharge Instruction [place] [id number] Patient Discharge Instructions PERSON INFORMATION Name: LEIGHTON [...] ??? You will go home with a Goemz catheter attached to a catheter bag. ??? [...] While there (more content not included)... Normal [facility] Ambulatory Visit Summaryon 1 04-01-2023 Ambulatory Visit [...] Strength 500 mg oral tablet) acetaminophen-hydroc odone (Nekoosa 325 mg-5 mg oral tablet) allopurinol (allopurinol [...] if questions or concerns Unchanged acetaminophen-hydroc odone (Nekoosa 325 mg-5 mg oral tablet) 1 Tablets [...] omeprazole (omep (more content not included)... Normal [facility] Urology Office/Clinic Noteon 01-31-2024 Urology Office/Clinic Note Urology Office/Clinic Note Chief Complaint [facility] ER follow up HPI Staff 78 year old male patient presents today for a [facility] ER follow up 01/23/24. Pt has [...] with voice recognition artificial intelligence software, specifically [employer], [employer] and or [employer]. Substitutions may have occurred due to the [...] (N52.9: Male erectile dysfunction, unspecified) Hx of [place] in 2002. Has pacemaker in place. Denies [...] in medic (more content not included)... Normal [facility] Comment on above: Result Comment: Elec tronically Signed By: MICHAEL Sr APRN, Anna Herrera\.br\Date and Time Signed: 01/31/24 16:26 EST URINE CULTUREon 01-24-2024 Bacteria identified Cx Nom (U) CULTURE RESULTS NO GROWTH AT <1000 CFU/mL Normal [facility] Comment on above: Performed By: #### 6 30-4 #### [facility] ([id number]) [address] [place] [address], [address] [place] [address] URN MACROSCOPIC NURon 2023 BILIRUBIN LETHA Negative Normal NEG [facility] Comment on above: Performed By: #### N UM #### [facility] ([id number]) [address] [place] [address] BLOOD/HGB LETHA Trace Abnormal NEG [facility] Comment on above: Performed By: #### N UM #### [facility] ([id number]) [address] [place] [address] [place] [address] GLUCOSE LETHA >=1000 Abnormal NEG [facility] Comment on above: Performed By: #### N UM #### [facility] ([id number]) [address] [place] [address] [place] [address] KETONES LETHA Negative Normal NEG [facility] Comment on above: Performed By: #### N UM #### [facility] ([id number]) [address] [place] [address] [place] [address] LEUKOCYTE ESTERASE LETHA Large Abnormal NEG [facility] Comment on above: Performed By: #### N UM #### [facility] ([id number]) [address] [place] [address] [place] [address] NITRITE LETHA Negative Normal NEG [facility] Comment on above: Performed By: #### N UM #### [facility] ([id number]) [address] [place] [address]287 PH LETHA 6.0 Normal 5.0-8.5 [facility] Comment on above: Performed By: #### N UM #### [facility] ([id number]) [address] [place] [address] [place] [address] PROTEIN LETHA 100 mg/dL Abnormal NEG [facility] Comment on above: Performed By: #### N UM #### [facility] ([id number]) [address] [place] [address] 14020 SPECIFIC GRAVITY LETHA 1.015 Normal 1.003-1.035 [facility] Comment on above: Performed By: #### N UM #### [facility] ([id number]) [address] [place] [address]281 UROBILINOGEN LETHA 0.2 eu/dL Normal <1.1 [facility] Comment on above: Performed By: #### N UM #### [facility] ([id number]) [address] [place] [address] Inpatient Patient Summaryon 12-27-2023 Inpatient Patient Summary Inpatient Patient Summary [place] [address] Clinical Summary Person Information Name: LEIGHTON ARCINIEGA Age: 78 Years : 1945 Sex: Male PCP: Lori Medina MD Marital Status: Race: White Ethnicity: Non- or Language: Upper Sorbian Visit Id: Visit Reason: BPH WITH URINARY OBSTRUCTION Speciality: Acuity: Enc Type: Outpatient Med Service: Surgery Arrival: 12/27/2023 09:33:05 Discharge: Dispo Type: Address: [facility] LINDEN TONEY [address] [facility] [phone] Provider Notes: Diagnosis: Anticoagulated; Other obstructive and [...] day as needed for pain. acetaminophen-hydroc odone (Nekoosa 325 mg-5 mg oral tablet) 1 Tablets [...] When: Mica Car Comments: Office [facility] Type Location Start Finish State NCV Pacemaker (FT) FT.CARDIO 06/01/2024 11:00 AM 06/01/2024 11:15 AM Confirmed Patient Education Information: EU - Cystoscopy Discharge Instructions (CUSTOM) [facility] Main OR Intraoperative Recor yovanny 12-27-2023 Main OR Intraoperative Record Main OR Intraoperative Record IntraOp Document Type FTURO Summary Primary Physician: Mica Car MD Finalized Date/Time: 12/27/23 11:42:38 Pt. Name: LEIGHTON ARCINIEGA/Sex: 1945 Male Med Rec #: [id number] Physician: Mica aCr MD Financial #: [id number] Pt. Type: O Room/Bed: / Admit/Disch: 12/27/23 [...] Micky Vargas Role Performed Surgeon - Primary Power Switchboard Operator - Primary Scrub - Primary Time [...] By: Ankita Gray RN 12/27/23 11:42 Normal [facility] Operative Reporton Operative Report Operative Report Patient: LEIGHTON ARCINIEGA Age: 78 years Sex: Male : 1945 Associated Diagnoses: None Author: Mica Car MD Procedure Operative Information Details: Date/ Time: 12/27/2023 12:10:00. Pre-Op Dx: BPH w/ LUTS - N40.1. Post-Op Dx: Feeling of incomplete bladder emptying ([id number] R39.14, Working, Medical), Anticoagulated ([id number] Z79.01, Discharge, Medical), Same. Anesthesia Type: Local. [...] Valium prior to procedure. 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 -Will need blood thinners held prior to procedure. Elevated risk of bleeding discussed. -Patient did better on terazosin. Will DC tamsulosin and restart terazosin 10 mg daily. [facility] [place] Normal [facility] Comment on above: Result Comment: Elec tronically Signed By: Josep SANDHU, Mica Johns\.br\Date and Time Signed: 12/27/23 12:14 EDT Outpatient Surgery Discharge Instructionon 12-27-2023 Outpatient Surgery Discharge Instruction Outpatient Surgery Discharge Instruction [place] [id number] Patient Discharge Instructions PERSON INFORMATION Name: LEIGHTON [...] Office to schedule Rezum Type Location Start [facility] NCV Pacemaker (FT) FT.CARDIO 06/01/2024 11:00 [...] Date You may receive a survey from [employer] asking you to rate your care experience. Your feedback is important and will help us understand what we do well and how we can improve the quality of care we provide to you, your loved ones and our community. It?s an honor to serve you. Thank you for choosing [facility] Normal [facility] Ambulatory Visit Summaryon 0 11-12-2023 Ambulatory Visit [...] Strength 500 mg oral tablet) acetaminophen-hydroc odone (Nekoosa 325 mg-5 mg oral tablet) allopurinol (allopurinol [...] if questions or concerns Unchanged acetaminophen-hydroc odone (Nekoosa 325 mg-5 mg oral tablet) 1 Tablets [...] Mouth E (more content not included)... Normal [facility] Urology Office/Clinic Noteon 11-12-2023 Urology Office/Clinic Note [...] (N52.9: Male erectile dysfunction, unspecified) Hx of [place] in 2002. Has pacemaker in place. Denies [...] antigen) Seborr (more content not included)... Normal [facility] Comment on above: Result Comment: Elec tronically Signed By: Mica Car MD\.br\Date and Time Signed: 11/12/23 16:43 EDT\.br\Electronically Co-Signed By: Maria Luz Mejia\.br\Date and Time Co-Signed: 11/12/23 16:14 EDT PTH Intacton 10-15-2023 Parathyrin.intact [Mass/Vol] 49 pg/mL Invalid Interpretation Code 15-65 [facility] Comment on above: Result Comment: Perf ormed at: [facility] [address] [id number] PhD Carlos Singh Performed By: #### 1 [id number] #### [facility] [address] [place] [address] ED Clinical Summaryon 2023 ED Clinical Summary ED Clinical Summary [address] [address] ED Clinical Summary Person Information Name: LEIGHTON ARCINIEGA [place] Age: 77 Years : 1945 Sex: Male Language: Upper Sorbian PCP: Lori Medina MD Marital Status: Visit [...] 10/14/2023 13:18:55 10/14/2023 13:18:55 ADDRESS: Danie TONEY [address] [place] [phone] PHYS DOC NOTES: MEDICAL INFORMATION: Prescriptions Given: New Medications [id number], [address], [place] [id number], [phone] acetaminophen-hydroc odone (Nekoosa 325 mg-5 mg oral tablet) 1 Tablets [...] EDUCATION INFORMATION: Instructions: Acute Knee Pain, Adult, Uani-zm-Iyma Follow up: With: Address: When: Andrea Espana [address] [place], [place] [id number] Business (1) In 3 days 10/17/2023 With: Address: When: Call to schedule a follow-up appointment with your orthopedic surgeon. Use the Nekoosa as needed for pain along with icing. . If you are unable to get in with your orthopedic surgeon, I have provided a referral for another one. In 3 days 10/17/2023 With: Address: When: Lori Medina [address] [place] [address], [facility] [place] [phone] Business (1) In 3 days DIAGNOSIS: Posterior left knee pain Normal [facility] ED Note-Physicianon 10-14-19 ED Note-Physician ED Note-Physician [...] he previously saw an orthopedic surgeon in [facility] for arthritis in which he will follow-up for further management of care. Patient is on Eliquis therefore I cannot prescribe him naproxen or any form of NSAID. Due to his age I did not feel a muscle relaxer was appropriate either. Based on this he is being prescribed 4 doses of Nekoosa. He was educated on appropriate use of [...] q4hr for pain, 4 tab(s), Refill(s) 0, [id number], 177, cm, 10/14/23 11:44:00 EDT, Height/Length Dosing, 104.8, kg, 10/14/23 11:44:00 EDT, Weight Dosing Disposition Plan Patient Discharge Condition stable Discharge Disposition home Discharge Prescription List Prescriptions Nekoosa 325 mg-5 mg oral tablet, 1 tab(s), Oral, q4hr, PRN Follow-up With When Contact Information Andrea Espana In 3 days 10/17/2023 EDT [address] [place] [address]- Business (1) Additional Instructions: Call to schedule a follow-up appointment with your orthopedic surgeon. Use the Nekoosa as needed for pain along with icing. . If you are unable to get in with your orthopedic surgeon, I have provided a referral for another one. In 3 days 10/17/2023 EDT Additional Instructions: Lori Medina In 3 days [address] [place] [address]- Business (1) Additional Instructions: Patient Education Acute Knee Pain, Adult, Cyww-qm-Fpno Attestation Patient seen and evaluated by the physician speech language assistant. Attending physician was present in the emergency department and supervised care. This visit was performed by both the physician and an APC. I performed all aspects of the MDM as documented. This report was transcribed using voice recognition software. Every effort was made to ensure accuracy, however, inadvertently computerized rendering equipment tender mistakes may be present. Appropriate healthcare PPE was used in evaluating this patient. The patient was placed in a mask. The healthcare provider was wearing mask, gloves, and utiliz (more content not included)... Normal [facility] Comment on above: Result Comment: Elec tronically Signed By: Vini Quinteros DO\.br\Date and Time Signed: 10/14/23 16:09 EDT\.br\Electronically Co-Signed By: Nayla William PA-C\.br\Date and Time Co-Signed: 10/14/23 13:46 EDT ED Patient Summaryon 024 ED Patient Summary ED Patient Summary [facility] [address] [id number] Patient Discharge Instructions Person Information Name: LEIGHTON ARCINIEGA Age: 77 Years Arrival Date: 10/14/2023 11:36:13 Discharge Diagnosis: Posterior left knee pain Primary Care Physician: Lori Medina MD Provider Information Primary Provider: Vini Quinteros DO Advanced Psychological Operations Officer:Nayla William PA-C The exam and treatment you received in the Emergency Department were for an urgent problem and are not intended as complete care. It is important that you follow up with a doctor, nurse practitioner, or physician?s speech language assistant for ongoing care. If your symptoms [...] Instructions: With: Address: When: Andrea [place] [address] [id number] Business (1) In 3 days 10/17/2023 With: Address: When: Call to schedule a follow-up appointment with your orthopedic surgeon. Use the [place] as needed for pain along with icing. . If you are unable to get in with your orthopedic surgeon, I have provided a referral for another one. In 3 days 10/17/2023 With: Address: When: Lori Medina [address] [place] [address] Business (1) In 3 days In the event that this physician does not participate in your insurance network, please consult with your insurance company to find a nearby participating provider. Patient Education Materials: Acute Knee Pain, Adult, Ghtl-tv-Acwb A MESSAGE TO ALL PATIENTS REGARDING OPIOIDS PRESCRIPTION OPIOIDS: WHAT YOU NEED TO KNOW Prescription opioids can be used to help relieve dengwesb-ps-kfuqwf pain and are often prescribed following a [...] or yo (more content not included)... Normal [facility] XR Knee Complete 4+ Views Le fton [...] mGy = na DAP = na Normal [facility] Screenson 06-17-2023 Screens [id number] #1.00TIFF Normal [facility] Screens [id number] #1.00TIFF Normal [facility] Ambulatory Visit Summaryon 0 06-16-2023 Ambulatory Visit [...] Mica Car MD Where: [facility] For [...] these instructions at home: Medicines ? Take yppb-tda-rnwejir and prescription medicines only as told by [...] include cig (more content not included)... Normal [facility] Urology Office/Clinic Noteon 06-16-2023 Urology Office/Clinic Note [...] (N52.9: Male erectile dysfunction, unspecified) Hx of [place] in 2002. Has pacemaker in place. Denies [...] Information Josep SANDHU, Mica Johns, URL, URO [address] [place] [address]- [phone] Additional Instructions: Has f/u already scheduled 11/12/23 [...] Amputation, Tonsillectomy. (more content not included)... Normal [facility] Comment on above: Result Comment: Elec tronically Signed By: NATA TA PA-C\.br\Date and Time Signed: 06/16/23 10:56 EDT\.br\Electronically Co-Signed By: Kriss Frankel\.br\Date and Time Co-Signed: 06/16/23 10:48 EDT [place] 05-10-2023 Screens [id number] #1.00TIFF [facility] Screens [id number] #1.00TIFF [facility] Ambulatory Visit Summaryon 0 05-07-2023 Ambulatory [...] NATA TA PA-C Where: [facility] Normal [address] [place] [address]- \.br\ You Need to Schedule the Following Appointments\.br\ Follow Up with NATA TA PA-C, URL When: \.br\ Comments:\.br\ 1 mos w/ PVR \.br\ Where:\.br\ [address]br\ [place] [address]\.br\ [phone]\.br\ Medications\.br\ What How Much When Instructions\.br\ New tadalafil (tadalafil 10 mg Tab) 1 Tablets By Mouth As Directed as needed for for erectile dysfunction Refills: 3 Take one tab 1 hour prior to sexual activity. Do not exceed 20mg in 48hrs. Pickup at [facility] #[id number]\.br\ New tamsulosin (tamsulosin 0.4 mg Cap) 1 Capsules By Mouth Once a day (in the evening) Refills: 11 Pickup at [facility] #[id number]\.br\ Unchanged acetaminophen (Tylenol Extra Strength 500 mg [...] or concerns \.br\ Pharmacy Information\.br\ [id number]: [address], [place] [id number] [phone]\.br\ Allergies\.br\ Monopril (Dry cough)\.br\ Strawberries (rash)\.br\ Tomatoes [...] Symptoms of this condition include:\.br\ ? \ [facility] Ambulatory Visit Summary LEIGHTON ARCINIEGA :1945 Visit [...] Josep SANDHU, MIGUELITO Richard, URO When: Comments: 6 mos ([facility]) Where: [address] [place] [address]- [phone] Medications What How Much When Instructions Unchanged [...] Every da (more content not included)... Normal [facility] Patient Educationon 05-07-19 Patient Education Urology Erectile [...] these instructions at home: Medicines ? Take xmnc-ojj-ezeuhla and prescription medicines only as told by [...] include cig (more content not included)... Normal [facility] Urology Office/Clinic Noteon 05-07-2023 Urology Office/Clinic Note [...] (N52.9: Male erectile dysfunction, unspecified) Hx of [place] in 2002. Has pacemaker in place. AMANDA [...] Information Josep SANDHU, Mica Johns, URL, URO [address] [place] [phone] Additional Instructions: 1 mos w/ PVR Patient Education Erectile Dysfunction IKriss, personally scribed for Dr. Car on 05/07/2023 15:06:02. . Documentation recorded by the Kriss chavarria, accurately reflects the services(s) I performed and decisions made by me. Authenticated by Dr. Car on 05/07/2023 16:05:51. Problem List/Past Medical History Ongoing Anticoagulated Arthritis Aspirin marshall (more content not included)... Normal [facility] Comment on above: Result Comment: Elec tronically Signed By: Mica Car MD\.br\Date and Time Signed: 05/07/23 16:06 EST\.br\Electronically Co-Signed By: Kriss Frankel\.br\Date and Time Co-Signed: 05/07/23 15:08 EST Consent for Treatmenton 0 Consent for Treatment [id number] #1.00TIFF Normal [facility] Consent for Treatment [id number] #1.00TIFF Normal [facility] Consent for Treatment [id number] #1.00TIFF Normal [facility] Hct & Hgbon 04-22-2023 Hematocrit (Bld) [Volume fraction] 39.0 % Normal 37.7-49.0 [facility] Comment on above: Performed By: #### 1 [id number], [id number], 69139298, [id number] ####[facility] [address] [place] [address] Hemoglobin (Bld) [Mass/Vol] 12.5 g/dL Low 13.5-17.5 [facility] Comment on above: Performed By: #### 1 [id number], [id number], 75399521, 1151849 ####[address] [place] [address] Magnesiumon 04-22-2023 Magnesium [Mass/Vol] 1.7 mg/dL Normal 1.3-2.4 [facility] Comment on above: Performed By: #### 1 [id number], 79082534, 97081721, 0518598 ####[address] [place] [address] PSA Totalon 04-22-2023 PSA Total 1.6 ng/mL Normal 0.1-3.5 [facility] Comment on above: Result Comment: The concentration of PSA determined by different manufacturers can vary due to differences in assay methods and reagent specificity. Values obtained from different assay methods cannot be used interchangeably. The methodology used for this result was chemiluminescence using [employer]'s [employer] PSA reagent. Performed By: #### 1 [id number] ####[facility] [address] [place] [address] Physician Orderon 04-22-2023 Physician Order [id number] 85#1.00TIFF Normal [facility] Physician Order [id number] 28#1.00TIFF Normal [facility] Renal Panelon 04-22-2023 Albumin [Mass/Vol] 3.9 g/dL Normal 3.3-5.0 [facility] Comment on above: Performed By: #### 1 [id number], 45917253, 78340743, 9429170 ####[facility] [address] [place] [address] Anion gap [Moles/Vol] 11 mmol/L Normal 6-16 [facility] Comment on above: Performed By: #### 1 [id number], 10965284, 77919272, 3853576 ####[facility] [address] [place] [address] BUN/Creat Ratio 15 No Units Normal 10-20 [facility] Comment on above: Performed By: #### 1 [id number], 02337867, 73072956, 4997140 ####[facility] [address] [place] [address] Calcium [Mass/Vol] 9.0 mg/dL Normal 8.9-11.1 [facility] Comment on above: Performed By: #### 1 3881769, 68862682, 34914683, 1693770 ####[facility] [address] [place] [address] Chloride [Moles/Vol] 104 mmol/L Normal 101-111 [facility] Comment on above: Performed By: #### 1 3485403, 86328258, 41705886, 7287080 ####[facility] [address] [place] [address] CO2 [Moles/Vol] 29 mmol/L Normal 21-31 [facility] Comment on above: Performed By: #### 1 6325024, 86823377, 70518301, 0701407 ####[facility] [address] [place] [address] Creatinine [Mass/Vol] 1.7 mg/dL High 0.5-1.3 [facility] Comment on above: Performed By: #### 1 7641320, 18893181, 83883017, 2303217 ####[facility] [address] [place] [address] Glucose [Mass/Vol] 144 mg/dL Normal 55-199 [facility] Comment on above: Performed By: #### 1 5630910, 32769588, 51832568, 0282413 ####[facility] [address] [facility] [place] [address] Phosphate [Mass/Vol] 3.0 mg/dL Normal 1.9-4.6 [facility] Comment on above: Performed By: #### 1 9651584, 19220936, 06743250, 9138818 ####[facility] [address] [facility] [place] [address] Potassium [Moles/Vol] 3.9 mmol/L Normal 3.5-5.3 [facility] Comment on above: Performed By: #### 1 2518525, 09906164, 56331094, 4873813 ####[facility] [address] [place] [address] Sodium [Moles/Vol] 140 mmol/L Normal 135-145 [facility] Comment on above: Performed By: #### 1 1079152, 48844775, 13173332, 5320904 ####[facility] [address] [place] [place] [address] Urea nitrogen [Mass/Vol] 26 mg/dL High 5-21 [facility] Comment on above: Performed By: #### 1 1921285, 40432443, 40208948, 3718592 ####[facility] [address] [place] [address] U Protein/Creat Ratioon U Creatinine 60.9 mg/dL Invalid Interpretation Code [facility] Comment on above: Performed By: #### 1 [id number] ####[facility] [address] [place] [address] U Prot/Creat Ratio 19.90 mg/gm Cr Normal .00-200.00 [facility] Comment on above: Performed By: #### 1 [id number] ####[facility] [address] [place] [address] Ur Total Protein 12.1 mg/dL Invalid Interpretation Code [facility] Comment on above: Performed By: #### 1 [id number] ####[facility] [address] [place] [address] eGFRon 04-22-2023 eGFR 41 mL/min/1.73 m2 Low >=59 [facility] Comment on above: Order Comment: Order added by Discern Expert. Performed By: #### 1 [id number], 81189615, 97534869, 6847576 ####[facility] [address] [place] [address] Office Visit (Cardiology)on 07-01-2022 Follow-up visit Diagnoses/Problems [...] lose weight.; Status:Complete - Retrospective Authorization; Done: [id number] Essential hypertension Renew: Carvedilol 6.25 MG Oral Tablet; Take 1 tablet twice daily Hyperlipidemia Renew: Simvastatin 20 MG Oral Tablet; TAKE 0.5 TABLET Bedtime SocHx: Former smoker Tobacco Use Screening; Status:Complete; Done: [id number] Patient Instructions Please bring all medicines, vitamins, [...] sheet. 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 [...] negative for complaint. Vitals Vital Signs Recorded: [id number] 10: (more content not included)... Normal [facility] Tobacco Screening.on 023 Adult depression screening assessment No [facility] [employer] DO Work Phone: Fall risk assessment b) One or more falls in the last year [facility] [employer] DO Work Phone: Tobacco use status CPHS b) No [facility] [employer] DO Work Phone: CBC AUTO DIFFon 05-28-2022 BASO # 0.0 103/ul Normal 0.0-0.1 [facility] Comment on above: Performed By: #### C BC #### [facility] [address] [address] [address] Susie Hale Basophils/100 WBC (Bld) 0.5 % Normal 0.2-2.0 [facility] Comment on above: Performed By: #### C BC #### [facility] [address] [address] [address] Susie Hale EO # 0.1 103/ul Normal 0.0-0.7 [facility] Comment on above: Performed By: #### C BC #### [facility] [address] [place] [address] Dr. Susie Hale Eosinophils/100 WBC (Bld) 1.8 % Normal 0.9-7.0 [facility] Comment on above: Performed By: #### C BC #### [facility] [address] [place] [address] Dr. Susie Hale Erythrocyte distribution width (RBC) [Ratio] 13.0 % Normal 11.0-15.0 [facility] Comment on above: Performed By: #### C BC #### [facility] [address] [place] [address] Dr. Susie Hale Hematocrit (Bld) [Volume fraction] 35.0 % Critically low 42.0-54.0 [facility] Comment on above: Performed By: #### C BC #### [facility] [address] [place] [address] Dr. Susie Hale Hemoglobin (Bld) [Mass/Vol] 12.2 g/dL Critically low 14.0-18.0 [facility] Comment on above: Performed By: #### C BC #### [facility] [address] [place] [address] Dr. Susie Hale IG # 0.05 10e3/ul Critically high 0.00-0.03 [facility] Comment on above: Performed By: #### C BC #### [facility] [address] [place] [address] Dr. Susie Hale IG % 0.8 % Critically high 0.0-0.5 [facility] Comment on above: Performed By: #### C BC #### [facility] [address] [place] [address] Dr. Susie Hale LYMPH # 1.9 103/ul Normal 1.2-3.8 [facility] Comment on above: Performed By: #### C BC #### [facility] [address] [place] [address] Dr. Susie Hale Lymphocytes/100 WBC (Bld) 28.7 % Normal 20.5-60.0 [facility] Comment on above: Performed By: #### C BC #### [facility] [address] [place] [address] Dr. Susie Hale MANUAL DIFF REQ NO Normal [facility] Comment on above: Performed By: #### C BC #### [facility] [address] [place] [address] Dr. Susie Hale MCH (RBC) [Entitic mass] 32.1 pg Normal 25.9-34.0 [facility] Comment on above: Performed By: #### C BC #### [facility] [address] [place] [address] Dr. Susie Hale MCHC (RBC) [Mass/Vol] 34.9 g/dL Normal 29.9-35.2 [facility] Comment on above: Performed By: #### C BC #### [facility] [address] [place] [address] Dr. Susie Hale MCV (RBC) [Entitic vol] 92.1 fL Normal 80.0-94.0 [facility] Comment on above: Performed By: #### C BC #### [facility] [address] [place] [address] Dr. Susie Hale MONO # 0.7 103/ul Normal 0.3-0.8 [facility] Comment on above: Performed By: #### C BC #### [facility] [address] [place] [address] Dr. Susie Hale Monocytes/100 WBC (Bld) 10.9 % Normal 1.7-12.0 [facility] Comment on above: Performed By: #### C BC #### [facility] [address] [place] [address] Dr. Susie Hale NEUT # 3.7 103/ul Normal 1.4-6.5 [facility] Comment on above: Performed By: #### C BC #### [facility] [address] [place] [address] Dr. Susie Hale Neutrophils/100 WBC (Bld) 57.3 % Normal 43.0-75.0 [facility] Comment on above: Performed By: #### C BC #### [facility] [address] [place] [address] Dr. Susie Hale Platelet mean volume (Bld) [Entitic vol] 8.5 fL Critically low 9.5-13.5 [facility] Comment on above: Performed By: #### C BC #### [facility] [address] [place] [address] Dr. Susie Hale PLT 238 103/ul Normal 150-450 [facility] Comment on above: Performed By: #### C BC #### [facility] [address] [place] [address] Dr. Susie Hale RBC 3.80 106/ul Critically low 4.70-6.10 [facility] Comment on above: Performed By: #### C BC #### [facility] [address] [place] [address] Dr. Susie Hale WBC 6.5 103/ul Normal 4.0-11.0 [facility] Comment on above: Performed By: #### C BC #### [facility] [address] [place] [address] STROKE HEAD WOon [...] MAILE CANO Date: 2022-05-28 18:17 Normal [facility] PROF 14(COMP METB)on 023 Albumin [Mass/Vol] 3.5 g/dL Normal 3.4-5.0 [facility] Comment on above: Performed By: #### C MP #### [facility] [address] [place] [address] Dr. Susie Hale Albumin/Globulin [Mass ratio] 1.1 {ratio} Normal [facility] Comment on above: Performed By: #### C MP #### [facility] [address] [place] [address] Dr. Susie Hale ALP [Catalytic activity/Vol] 87 U/L Normal 46-116 [facility] Comment on above: Performed By: #### C MP #### [facility] [address] [place] [address] Dr. Susie Hale ALT [Catalytic activity/Vol] 16 U/L Normal 16-63 [facility] Comment on above: Performed By: #### C MP #### [facility] [address] [place] [address] Dr. Susie Hale Anion gap [Moles/Vol] 10.0 mmol/L Normal [facility] Comment on above: Performed By: #### C MP #### [facility] [address] [address] [address] Susie Hale AST [Catalytic activity/Vol] 14 U/L Critically low 15-37 [facility] Comment on above: Performed By: #### C MP #### [facility] [address] [address] [address] Susie Hale Bilirubin [Mass/Vol] 0.2 mg/dL Normal 0.2-1.0 [facility] Comment on above: Performed By: #### C MP #### [facility] [address] [address] [address] Susie Hale Calcium [Mass/Vol] 8.9 mg/dL Normal 8.5-10.1 [facility] Comment on above: Performed By: #### C MP #### [facility] [address] [place] [address] Dr. Susie Hale Chloride [Moles/Vol] 105 mmol/L Normal 98-107 [facility] Comment on above: Performed By: #### C MP #### [facility] [address] [place] [address] Dr. Susie Hael CO2 [Moles/Vol] 25.7 mmol/L Normal 21.0-32.0 [facility] Comment on above: Performed By: #### C MP #### [facility] [address] [place] [address] Dr. Susie Hale Creatinine [Mass/Vol] 1.87 mg/dL Critically high 0.70-1.30 [facility] Comment on above: Performed By: #### C MP #### [facility] [address] [place] [address] Dr. Susie Hale EGFR-AF GAMBIAN 43 mL/min/1.73m2 Critically low >=60 [facility] Comment on above: Performed By: #### C MP #### [facility] [address] [address] [address] Susie Hale EGFR-NON AF GAMBIAN 35 mL/min/1.73m2 Critically low >=60 [facility] Comment on above: Performed By: #### C MP #### [facility] [address] [place] [address] Dr. Susie Hale Globulin (S) [Mass/Vol] 3.2 g/dL Normal [facility] Comment on above: Performed By: #### C MP #### [facility] [address] [address] [address] Susie Hale Glucose [Mass/Vol] 256 mg/dL Critically high 74-106 [facility] Comment on above: Performed By: #### C MP #### [facility] [address] [address] [address] Susie Hale Potassium [Moles/Vol] 3.7 mmol/L Normal 3.5-5.1 [facility] Comment on above: Performed By: #### C MP #### [facility] [address] [address] [address] Susie Hale Protein [Mass/Vol] 6.7 g/dL Normal 6.4-8.2 [facility] Comment on above: Performed By: #### C MP #### [facility] [address] [address] [address] Susie Hale Sodium [Moles/Vol] 137 mmol/L Normal 136-145 [facility] Comment on above: Performed By: #### C MP #### [facility] [address] [address] [address] Susie Hale Urea nitrogen [Mass/Vol] 22.0 mg/dL Critically high 7.0-18.0 [facility] Comment on above: Performed By: #### C MP #### [facility] [address] [address] [address] Susie Hale Urea nitrogen/Creatinin e [Mass ratio] 11.8 mg/mg Normal [facility] Comment on above: Performed By: #### C MP #### [facility] [address] [address] [address] Susie Hale Office Visit (Cardiology)on 12-16-2021 [...] in adult Healthy Weight Tips; Status:Complete; Done: [id number] Some eating tips that can help you lose weight.; Status:Complete; Done: [id number] Essential hypertension Renew: Carvedilol 6.25 MG Oral Tablet; Take 1 tablet twice daily Hyperlipidemia Renew: Simvastatin 20 MG Oral Tablet; TAKE 0.5 TABLET Bedtime SocHx: Former smoker Tobacco Use Screening; Status:Complete; Done: [id number] Unlinked Stop: Aspirin 325 MG Oral Tablet [...] visit. Device check as directed per [facility] protocol Follow up in 6-9 months Chief [...] Screening.on 022 Adult depression screening assessment No -[facility] [address] DO Work Phone: Fall risk assessment a) No falls within the last year [facility] [address] DO Work Phone: Tobacco use status CPHS b) No -[facility] [address] DO Work Phone: Tobacco Screening.on 021 Fall risk assessment a) No falls within the last year [facility] [facility] 250 DO Work Phone: Tobacco use status CPHS b) No -[facility] [facility] 250 DO Work Phone: Vital Signs Date Time Vital Sign Value Performing Clinician Faci lity 03-01-2024 11:12-0500 Body height 177.8 cm Osvaldo Dickinson MD Work Phone: [facility] 03-01-2024 11:12-0500 Body mass index (BMI) [Ratio] 30.13 kg/m2 Osvaldo Dickinson MD Work Phone: [facility] 03-01-2024 11:12-0500 Body weight 95.25 kg Osvaldo Dickinson MD Work Phone: [facility] 03-01-2024 11:12-0500 Diastolic blood pressure 54 mm[Hg] Osvaldo Dickinson MD Work Phone: [facility] 03-01-2024 11:12-0500 Heart rate 71 /min Osvaldo Dickinson MD Work Phone: [facility] 03-01-2024 11:12-0500 Systolic blood pressure 114 mm[Hg] Osvaldo Dickinson MD Work Phone: [facility] 12-14-2023 13:17-0400 Diastolic blood pressure 70 mm[Hg] Dank Robert DO Work Phone: [facility] 12-14-2023 13:17-0400 Heart rate 68 /min Dank Robert DO Work Phone: [facility] 12-14-2023 13:17-0400 SaO2% (BldA) [Mass fraction] 97 % Dank Robert DO Work Phone: [facility] 12-14-2023 13:17-0400 Systolic blood pressure 152 mm[Hg] Dank Robert DO Work Phone: [facility] 08-25-2023 12:12-0400 Body height 177.8 cm Varghese Caal MD Work Phone: [facility] 08-25-2023 12:12-0400 Body mass index (BMI) [Ratio] 33.43 kg/m2 Varghese Caal MD Work Phone: [facility] 08-25-2023 12:12-0400 Body weight 105.69 kg Varghese Caal MD Work Phone: [facility] 08-25-2023 12:12-0400 Diastolic blood pressure 54 mm[Hg] Varghese Caal MD Work Phone: [facility] 08-25-2023 12:12-0400 Heart rate 60 /min Varghese Caal MD Work Phone: [facility] 08-25-2023 12:12-0400 Systolic blood pressure 126 mm[Hg] Varghese Caal MD Work Phone: [facility] 02-10-2023 11:37-0500 Body height 177.8 cm Varghese Caal MD Work Phone: [facility] 02-10-2023 11:37-0500 Body mass index (BMI) [Ratio] 32.28 kg/m2 Varghese Caal MD Work Phone: [facility] 02-10-2023 11:37-0500 Body weight 102.06 kg Varghese Caal MD Work Phone: [facility] 02-10-2023 11:37-0500 Diastolic blood pressure 58 mm[Hg] Varghese Caal MD Work Phone: [facility] 02-10-2023 11:37-0500 Heart rate 63 /min Varghese Caal MD Work Phone: [facility] 02-10-2023 11:37-0500 Systolic blood pressure 120 mm[Hg] Varghese Caal MD Work Phone: [facility] 07-01-2022 10:54-0400 Body height 177.8 cm Andrea Espinoza Work Phone: [facility] [employer] 600 DO Work Phone: 07-01-2022 10:54-0400 Body mass index (BMI) [Ratio] 32.71 kg/m2 Andrea Espinoza Work Phone: [facility] [employer] 600 DO Work Phone: 07-01-2022 10:54-0400 Body surface area Derived from formula 2.21 m2 Andrea [facility]za [facility] Work Phone: 07-01-2022 10:54-0400 Body weight 103.42 kg Andrea Espinoza Work Phone: [facility] 600 DO Work Phone: 07-01-2022 10:54-0400 Diastolic blood pressure 64 mm[Hg] Andrea [facility]za Work [facility]: [facility] 600 DO Work Phone: 07-01-2022 10:54-0400 Heart rate 72 /min Andrea Espinoza Work Phone: [facility] [employer] 600 DO Work Phone: 07-01-2022 10:54-0400 Systolic blood pressure 118 mm[Hg] Andrea Espinoza Work Phone: [facility] [employer] 600 DO Work Phone: 12-16-2021 11:08-0400 Body height 177.8 cm Andrea Espinoza Work Phone: [facility] [employer] 600 DO Work Phone: 12-16-2021 11:08-0400 Body mass index (BMI) [Ratio] 33.86 kg/m2 Andrea Espinoza Work Phone: [facility] [employer] 600 DO Work Phone: 12-16-2021 11:08-0400 Body surface area Derived from formula 2.24 m2 Andrea Espinoza Work Phone: [facility] [employer] 600 DO Work Phone: 12-16-2021 11:08-0400 Body weight 107.05 kg Andrea Espinoza Work Phone: [facility] [employer] 600 DO Work Phone: 12-16-2021 11:08-0400 Diastolic blood pressure 64 mm[Hg] Andrea Espinoza Work Phone: [facility] [employer] 600 DO Work Phone: 12-16-2021 11:08-0400 Heart rate 72 /min Andrea Espinoza Work Phone: [facility] [employer] 600 DO Work Phone: 12-16-2021 11:08-0400 Systolic blood pressure 132 mm[Hg] Andrea Houstonh Work Phone: [facility] [employer] 600 DO Work Phone: 01-22-2021 14:36-0400 Body height 177.8 cm Andrea Espinoza Work Phone: [facility] 250 DO Work Phone: 01-22-2021 14:36-0400 Body mass index (BMI) [Ratio] 34.01 kg/m2 Andrea Espinoza Work Phone: [facility] 250 DO Work Phone: 01-22-2021 14:36-0400 Body surface area Derived from formula 2.24 m2 Andrea Espinoza Work Phone: [facility] 250 DO Work Phone: 01-22-2021 14:36-0400 Body weight 107.5 kg Andrea Espinoza Work Phone: [facility] 250 DO Work Phone: 01-22-2021 14:36-0400 Diastolic blood pressure 54 mm[Hg] Andrea Espinoza Work Phone: [facility] 250 DO Work Phone: 01-22-2021 14:36-0400 Heart rate 76 /min Andrea Espinoza Work Phone: [facility] 250 DO Work Phone: 01-22-2021 14:36-0400 Systolic blood pressure 104 mm[Hg] Andrea Espinoza Work Phone: [facility] 250 DO Work Phone: Encounters Encounter Date Encounter Type Care Provider Facility Start: 05-12-2024 ambulatory Mica Car Facility:[facility] Start: 04-25-2024 ambulatory Mica Car Facility:[facility] [place] Start: 04-12-2024 End: 04-12-2024 ambulatory Mica Car Facility:[facility] [place] Start: 04-06-2024 End: 04-06-2024 ambulatory Mica Car Facility: [place] Start: 03-28-2024 End: 03-28-2024 ambulatory Benton Vasquez [facility] Work Phone: Start: 03-28-2024 End: 03-28-2024 Departed Referred Benton Vasquez [facility] Start: 03-24-2024 End: 03-24-2024 ambulatory Mica Car [place] Start: 03-11-2024 End: 03-11-2024 ambulatory Benton Asif Vasquez Facility:[facility] Start: 03-11-2024 End: 03-11-2024 Departed Referred Benton Vasquez [facility] Start: 03-02-2024 End: 03-02-2024 ambulatory NATA TA Facility:[facility] Start: 03-01-2024 End: 03-01-2024 Office outpatient visit 25 minutes Osvaldo Dickinson MD Work Phone: [facility] Comment on above: Paroxysmal atrial fi brillation (Multi) (Primary Dx); Sick sinus syndrome (Multi); Pacemaker; Essential hypertension; Cardiomyopathy, unspecified type (Multi); Mixed hyperlipidemia; Stage 4 chronic kidney disease (Multi); Non-smoker; BMI 30.0-30.9,adult Start: 03-01-2024 End: 03-01-2024 ambulatory [facility] Start: 02-19-2024 End: 02-19-2024 Emergency department patient visit LORI MEDINA [facility] Start: 02-18-2024 End: 02-18-2024 ambulatory Mica Car Facility:[facility] Start: 02-14-2024 End: 02-14-2024 ambulatory Mica Car Facility[place] Start: 01-31-2024 End: 01-31-2024 ambulatory Anna Sr Facility:[facility] Start: 01-24-2024 End: 01-24-2024 Emergency department patient visit BOBO BRENNER [facility] Start: 01-17-2024 End: 01-17-2024 Office outpatient visit 25 minutes Blanca Alonso MD Work Phone: [facility] Comment on above: Other atopic dermati tis (Primary Dx); Seborrheic keratosis; Lentigines; History of SCC (squamous cell carcinoma) of skin Start: 01-17-2024 End: 01-17-2024 ambulatory BLANCA ALONSO Not Available Start: 12-27-2023 End: 12-27-2023 ambulatory Mica Car [place] Start: 12-14-2023 End: 12-14-2023 Bamboo flowsheet Dank Robert DO Work Phone: [facility] Start: 12-14-2023 End: 12-14-2023 Bamboo flowsheet Dank Robert DO Work Phone: [facility] Start: 12-14-2023 End: 12-14-2023 Office outpatient visit 25 minutes Dank Robert DO Work Phone: [facility] Comment on above: VIRGILIO (obstructive sle ep apnea) (Primary Dx); Hypersomnia; PLMD (periodic limb movement disorder); Obesity due to excess calories, unspecified classification, unspecified whether serious comorbidity present; Snoring Start: 12-14-2023 End: 12-14-2023 ambulatory DANK JONES Not Available Start: 12-09-2023 End: 12-09-2023 ambulatory Varghese Caal [place] Start: 11-12-2023 End: 11-12-2023 ambulatory Mica Car Facility:[facility] Start: 10-14-2023 End: 10-14-2023 Emergency department patient visit Vini Quinteros Facility[place] Start: 10-14-2023 ambulatory Barb Elkins cility:[facility] Start: 08-31-2023 End: 08-31-2023 ambulatory BLANCA ALONSO Not Available Start: 08-25-2023 End: 08-25-2023 Office outpatient visit 25 minutes Varghese Caal MD Work Phone: [facility] Comment on above: Essential hypertensi on (Primary Dx); Sick sinus syndrome (Multi); Mixed hyperlipidemia; Paroxysmal atrial fibrillation (Multi); Dilated cardiomyopathy (Multi); Pacemaker; BMI 33.0-33.9,adult Start: 08-25-2023 End: 08-25-2023 [facility] Start: 08-10-2023 End: 08-10-2023 ambulatory BLANCA Zambrano PETITTI Not Available Start: 06-16-2023 End: 06-16-2023 ambulatory NAPOLEON TA Facility:[facility] Start: 05-07-2023 End: 05-07-2023 ambulatory Mica Car Facility:[facility] Start: 04-22-2023 End: 04-22-2023 ambulatory Varghese Caal [place] Start: 03-19-2023 End: 03-19-2023 ambulatory BLANCA PETITTI Not Available Start: 03-05-2023 End: 03-05-2023 ambulatory BLANCA Zambrano PETITTI Not Available Start: 02-10-2023 End: 02-10-2023 Office outpatient visit 25 minutes Varghese Caal MD Work Phone: [facility] Comment on above: Sick sinus syndrome (CMS/HCC) (Primary Dx); Mobitz type II atrioventricular block; Pacemaker; Essential hypertension; Dilated cardiomyopathy (CMS/HCC); Paroxysmal atrial fibrillation (CMS/HCC) Start: 10-22-[address] Andrea Espinoza Facility: Start: 07-01-2022 Office outpatient vi sit 25 minutes Andrea Espinoza Work Phone: [facility] 600 DO Work Phone: Start: 07-01-[address] Varghese Caal II Facility: Start: 05-28-2022 End: 05-28-[address] TRINO Lange Facility:[facility] Start: 05-14-2022 End: 05-15-2022 ambulatory MARIXA ROY Facility:[facility] Start: 04-23-[address] Andrea Espinoza Facility: Start: 12-31-2021 Rx Renewal Andrea Espinoza Work Phone: [facility] 250 DO Work Phone: Start: 12-16-2021 Office outpatient vi sit 25 minutes Andrea Espinoza Work Phone: [facility] 600 DO Work Phone: Start: 12-16-[address] [facility] Facility: Start: 01-22-2021 Office outpatient vi sit 25 minutes Andrea Espinoza Work Phone: [facility] 250 DO Work Phone: Procedures Date Procedure Procedure Detail Performing Clinician Start: 03-11-2024 Urine culture Benton prajapati DO Start: 03-01-2024 Ecg routine ecg w/le ast 12 lds w/i&r Osvaldo Dickinson MD Work Phone: Colonoscopy Andrea Espinoza Work Phone: Comment on above: [id number]; Insertion of pacemak er pulse generator Andrae Vasquezemmazulay Work Phone: Operation on nose Andera Edgar Work Phone: Operative procedure on hand Andrea Vasquezyann Work Phone: Tonsillectomy and adenoidectomy Andrea Vasquezemmazulay Work Phone: Plan of Treatment Date Care Activity Detail Author Start: 12-09-2032 DTaP/Tdap/Td Vaccine s (2 - Td or Tdap) DTaP/Tdap/Td Vaccines (2 - Td or Tdap) [facility] Start: 01-25-2025 End: 01-25-2025 Patient encounter procedure 01/25/2025 1:05 PM EST Office Visit [facility] [address] [place] [address] Blanca Alonso MD [address] [place] [address] [facility] Start: 12-12-2024 End: 12-12-2024 Patient encounter procedure 12/12/2024 1:00 PM EDT Office Visit [facility] [place] [address] [place] [address] Selinanitin Rox, [employer]ATOR [address] [place], [place] [facility] [place] [facility] Start: 11-28-2024 Glaucoma screening Diabetes: R etinopathy Screening [facility] Start: 11-07-2024 End: 11-07-2024 Patient encounter procedure 11/07/2024 10:30 AM EDT Office Visit [address] [place] [address] Osvaldo Dickinson MD [address] [facility] [address] [place] [address] [facility] Start: 03-28-2024 Urine culture [facility] Start: 03-28-2024 Bacteria identified in Urine by Culture Urine Culture [facility] Start: 03-01-2024 End: 03-01-2024 Patient encounter procedure 03/01/2024 11:00 AM EST Office Visit [address] [place] [address] Osvaldo Dickinson MD [address] [facility] [address] [place] [address] [facility] Start: 01-17-2024 End: 01-17-2024 Patient encounter procedure 01/17/2024 3:15 PM EDT Office Visit [facility] [address] [place] [address] Blanca Alonso MD [address] [place] [address] [facility] Start: 12-14-2023 End: 12-14-2023 Patient encounter procedure 12/14/2023 1:30 PM EDT Office Visit [facility] [address] [place] [address] Dank Jones DO [address] [place] [id number] [facility] Comment on above: Arrived Start: 12-01-2023 Glaucoma screening Diabetes: R etinopathy Screening [facility] Start: 08-25-2023 End: 08-25-2023 Patient encounter procedure 08/25/2023 11:40 AM EDT Office Visit [place] [address] [place] [address] Varghese Caal MD [address] [facility] [address] [place] [address] [facility] Start: 06-05-2023 COVID-19 Vaccine ( season) COVID-19 Vaccine ( season) [facility] Start: 04-01-2023 COVID-19 Vaccine (6 - Moderna series) COVID-19 Vaccine (6 - Moderna series) [facility] Start: 02-10-2023 FUV, Provider: Varghese Caal, Status: Pen, Time: 11:30 AM FUV, Provider: Varghese Caal, Status: Pen, Time: 11:30 AM [facility] 600 DO Work Phone: Start: 07-01-2022 FUV, Provider: Varghese Caal, Status: Pen, Time: 10:40 AM FUV, Provider: Varghese Caal, Status: Pen, Time: 10:40 AM [facility] 600 DO Work Phone: Start: 09-10-2021 FUV, Provider: Varghese Caal, Status: Pen, Time: 2:30 PM FUV, Provider: Varghese Caal, Status: Pen, Time: 2:30 PM [facility] 250 DO Work Phone: Start: 2020 RSV High Risk: (Elde rly (60+) or Population) (1 - 1-dose 75+ series) RSV High Risk: (Elderly (60+) or Population) (1 - 1-dose 75+ series) [facility] Start: 05-09-2020 Echocardiography Echocardiogram [facility] Start: 2005 RSV patient s and/or patients aged 60+ years (1 - 1-dose 60+ series) RSV patients and/or patients aged 60+ years (1 - 1-dose 60+ series) [facility] Start: 11-26-1995 Zoster Vaccines (1 of 2) Zoste r Vaccines (1 of 2) [facility] Start: 1964 Urine screening for protein Diabetes: Urine Protein Screening [facility] Start: 11-26-1963 Hepatitis C screening Hepatitis C Sc [facility] Start: 11-26-1955 Diabetic foot examination Diabetes: Foot Exam [facility] Start: 11-26-1955 Glaucoma screening Diabetes: R etinopathy Screening [facility] Start: 1945 Creatinine measurement Creatinine Le sarah [facility] Start: 1945 Hemoglobin A1c measurement Jennifer betes: Hemoglobin A1C [facility] Start: 1945 Lipid panel Lipid Panel [facility] Start: 1945 Medicare Annual Well ness Visit Medicare Annual Wellness Visit (AWV) [facility] Start: 1945 Potassium measurement Potassium Leve l [facility] Immunizations Immunization Date Immunization Notes Care Provider Fa naren 01-14-2022 Fluad Quadrivalent 0 .5 ML Intramuscular Prefilled Syringe [facility] Work Phone: 01-14-2022 Pfizer COVID-19 Vac Bivalent 30 MCG/0.3ML Intramuscular Suspension [facility] DO Work Phone: 09-03-2021 pneumococcal conjuga te vaccine, 13 valent Dank Annner DO Work Phone: [facility] 02-15-2021 Moderna COVID-19 Vac cine 100 MCG/0.5ML Intramuscular Suspension Andrea Espinoza Work Phone: [facility] 600 DO Work Phone: 01-30-2021 influenza virus vacc ine, unspecified formulation Andrea Espinoza Work Phone: [facility] 600 DO Work Phone: 11-28-2020 influenza, high dose seasonal, preservative-free Andrea Espinoza Work Phone: [facility] 250 DO Work Phone: Comment on above: Series: 06-20-2020 Moderna COVID-19 Vac cine 100 MCG/0.5ML Intramuscular Suspension Andrea Espinoza Work Phone: [facility] 600 DO Work Phone: 05-20-2020 Moderna COVID-19 Vac cine 100 MCG/0.5ML Intramuscular Suspension [facility] Work [facility]: [facility] DO Work Phone: Comment on above: Series: 04-25-2020 Moderna COVID-19 Vac cine 100 MCG/0.5ML Intramuscular Suspension [facility]za [facility] Work Phone: Comment on above: Series: 12-21-2019 influenza virus vacc ine, unspecified formulation Andrea Espinoza Work Phone: [facility] 600 DO Work Phone: 12-20-2018 influenza, high dose seasonal, preservative-free Andrea Patel Pedroro Work Phone: [facility] 02-19-2018 influenza virus vacc ine, unspecified formulation Andrea Espinoza Work Phone: [facility] 600 DO Work Phone: 02-19-2018 pneumococcal polysaccharide vaccine, 23 valent Andrea Espinoza Work Phone: [facility] 250 DO Work Phone: Comment on above: Series: 02-19-2018 pneumococcal vaccine , unspecified formulation Andrea Espinoza Work Phone: [facility] 02-18-2017 Influenza, injectabl e, Madin Estero Canine Kidney, preservative free, quadrivalent Andrea Espinoza Work Phone: [facility] 600 DO Work Phone: 11-24-2016 influenza, high dose seasonal, preservative-free Andrea Espinoza Work Phone: [facility] 600 DO Work Phone: 12-21-2015 pneumococcal conjuga te vaccine, 13 valent Andrea Espinoza Work Phone: [facility] 250 DO Work Phone: Comment on above: Series: Payers Date Payer Category Payer Self-pay 2022 Medicare [id number] 2022 [employer] of [employer] ( and others) [id number] 2022 () [id number] 2022 For Life (TFL) F OR LIFE [id number]. [id number] 2022 [employer] ( and others) [id number] 2010 Medicare [id number] 1.13.647. [id number] 1959 [employer] ( and others) [id number] 1959 Medicare [id number] 1945 Unknown [id number] 2.16840.1.492550.3.579. 2.593 1945 Unknown [id number] 2.840.1.895294.3.579. 2.593 1945 Unknown [id number] 2.840.1.300281.3.579. 2.356 1945 Unknown [id number] 2.16840.1.274357.3.579. 2.356 1945 Unknown [id number] 2.16840.1.854854.3.579. 2.356 1945 Unknown [id number] 2.16840.1.170187.3.579. 2.356 1945 Unknown [id number] 2.16840.1.960657.3.579. 2.727 1945 Unknown [id number] 2.16.840.1.587015.3.579. 2.72 1945 Unknown [id number] 2.16.840.1.836339.3.579. 2. 1945 Unknown [id number] 2.16.840.1.514292.3.579. 2. 1945 Unknown [id number] 2.16.840.1.772196.3.579. 2.72 1945 Unknown [id number] 2.16.840.1.593018.3.579. 2. 1945 Unknown [id number] 2.16.840.1.737384.3.579. 2. 1945 Unknown [id number] 2.16840.1.582566.3.579. 2. 1945 Unknown [id number] 2.840.1.260498.3.579. 2.1258 1945 Unknown [id number] 2.840.1.619927.3.579. 2.1258 1945 Unknown [id number] 2.840.1.910733.3.579. 2.1258 1945 Unknown [id number] 2.840.1.316645.3.579. 2.1258 1945 Unknown [id number] 2.840.1.777639.3.579. 2.1258 1945 Unknown [id number] 2.840.1.771271.3.579. 2.125 1945 Unknown [id number] 2.16840.1.097549.3.579. 2.128 1945 Unknown [id number] 2.16.840.1.859349.3.579. 2.128 1945 Unknown [id number] 2.16840.1.828725.3.579. 2.1244 1945 Unknown [id number] 2.16.840.1.981946.3.579. 2.1244 1945 Unknown [id number] 2.16.840.1.775366.3.579. 2.727 1945 Unknown [id number] 2.16.840.1.531390.3.579. 2.727 1945 Unknown [id number] 2.16.840.1.010440.3.579. 2.727 1945 Unknown [id number] 2.16.840.1.339981.3.579. 2.72 1945 Unknown [id number] 2.16.840.1.997129.3.579. 2.727 1945 Unknown [id number] 2.16.840.1.415089.3.579. 2.727 1945 Unknown [id number] 2.16.840.1.780978.3.579. 2.727 1945 Unknown [id number] 2.16.840.1.345423.3.579. 2.727 1945 Unknown [id number] 2.16.840.1.493401.3.579. 2.727 1945 Unknown [id number] 2.16.840.1.511137.3.579. 2.72 1945 Unknown [id number] 2.16.840.1.021136.3.579. 2.727 1945 Unknown [id number] 2.16.840.1.192958.3.579. 2.727 Unknown Unknown [id number] 2.16.840.1.394996.3.579. 2.531 Unknown [id number] 2.16.840.1.753697.3.579. 2.531 Social History Date Type Detail Facility Start: 02-10-2023 End: 12-14-2023 No illicit drug use No illicit drug use -[facility] 250 DO Work Phone: Comment on above: quit , 1 PPD; Start: 02-10-2023 End: 08-25-2023 Tobacco smoking status NHIS Ex-smoker [facility] Work Phone: End: 03-22-1992 History of tobacco use Current smoker [facility] Work Phone: End: 03-22-1992 History of tobacco use Cigarette Smoker [facility] Work Phone: Start: 10-11-2022 End: 02-10-2023 Tobacco use and exposure Smokeless tobacco non-user [facility] Work Phone: Start: 02-10-2023 End: 12-14-2023 Alcohol intake Lifetime non-drinker (finding) [facility] Work Phone: Start: 02-10-2023 End: 12-14-2023 Tobacco use panel [facility] Work Phone: Start: 1945 Sex Assigned At Not on file [facility] Work Phone: Start: 01-31-2023 End: 03-01-2024 Exposure to SARS-CoV-2 (event) Not sure [facility] Start: 10-11-2022 Tobacco smoking stat RUSTIS Never smoked tobacco [facility] Tobacco smoking stat RUSTIS Unknown if ever smoked [facility] Work Phone: Start: 03-30-2024 Sex Patient sex un known (finding) [facility] Start: 1945 Sex Assigned At Male F [facility] Clinical Notes 05-14-2022 to 04-12-2024 Osvaldo Dickinson [...] Follow these instructions at home: ??? Take epts-axk-huogwes and prescription medicines only as told by [...] do not get (more content not included)... [facility] 03-02-2024 Note Patient Education Urology Acute Urinary [...] these instructions at home: Medicines ??? Take hxuw-ybj-rfkwnhz and prescription medicines only as told by [...] provider. Document Revised: 11/27/2020 Document Reviewed: 11/27/2020 [employer] Patient Education ? 2023 [employer]. [facility] 03-01-2024 History of Present illness Narrative Subjective [...] to retrieve his recent lab work from [facility] 5. I will see him back in [...] discussion and plan. documented in this encounter [facility] Work Phone: 03-01-2024 Instructions Betzaida Denney LPN [...] instructions on exercise. documented in this encounter [facility] Work Phone: 02-14-2024 Note Patient Education Rezum [...] to the c (more content not included)... [facility] 01-31-2024 Note Patient Education Urology Acute Urinary [...] these instructions at home: Medicines ??? Take hxvh-uif-whreztw and prescription medicines only as told by [...] provider. Document Revised: 11/27/2020 Document Reviewed: 11/27/2020 [employer] Patient Education ? 2023 [employer] Benign Prostatic Hyperplasia Benign prostatic hyperplasia (BPH) is an enlarged prostate gland that is caused by the normal aging proc (more content not included)... [facility] 01-17-2024 History of Present illness Narrative Images [...] given intertriginous involvement, topical steroids contraindicated for snf use in this area and he has [...] Visit: 1 year documented in this encounter [facility] 12-27-2023 Note Progress Note-Asaf tapia [...] day(s), # 6 tab(s), Refills(s) 0, Pharmacy: [facility] #[id number], 177, cm, 12/27/23 11:02:00 EDT, Height/Length Dosing, 104, kg, 12/27/23 11:02:00 EDT, Weight Dosing [place] 325 mg-5 mg oral tablet: 1 tab(s), Oral, q6hr for pain, 4 tab(s), Refill(s) 0, Take 1 tablet an hour before procedure, post procedure prn, [facility] #[id number], 177, cm, 12/27/23 11:02:00 EDT, Height/Length Dosing, 104, kg, 12/27/23 11:02:00 EDT, Weight Dosing sildenafil 100 mg Tab: 100 mg = 1 tab(s), Oral, As Directed, PRN for erectile dysfunction, Take one tab 1 hour prior to sexual activity., # 30 tab(s), Refills(s) 3, Pharmacy: [facility] #[id number], 177.8, cm, 06/16/23 10:18:00 EDT, Height/Length Dosing, 104.8, kg, 06/16/23 10:18:... terazosin 10 mg Cap: 10 mg = 1 cap(s), Oral, Once a day (at bedtime), # 90 cap(s), Refills(s) 3, Pharmacy: [facility], 177, cm, 12/27/23 11:02:00 EDT, Height/Length Dosing, 104, kg, 12/27/23 11:02:00 EDT, Weight Dosing traMADOL 50 mg Tab: 50 mg = 1 tab(s), Oral, q6hr, Take as needed for pain., # 6 tab(s), Refills(s) 0, Pharmacy: [facility] #[id number], 177.8, cm, 11/12/23 15:35:00 EDT, Height/Length Dosing, [...] Plan: Diagnosis: Prostate hyperplasia with urinary obstruction (CDG32-VR N40.1, Discharge, Medical), Feeling of incomplete bladder emptying (VAR89-YI R39.14, Working, Medical), Anticoagulated (OBK64-IX Z79.01, Discharge, Medical). 78 yo male here [...] Valium prior to procedure. 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 The procedural risks, benefits, details, and treatment alternatives have been discussed with the patient. These include bleeding, infection, continued problems urinating, increased frequency with urgency during the healing process, painful urination, need for indwelling cathete (more content not included)... [facility] Comment on above: Result Comment: Elec tronically [...] you have a fever over 100 degrees. [facility] 12-14-2023 History of Present illness Narrative Images [...] Actinic keratosis COPD (chronic obstructive pulmonary disease) ([facility]) Coronary heart disease ([facility]/HCC) Diabetes mellitus, type 2 ([facility]/HCC) HTN (hypertension) ([facility]) Hx of psoriasis Kidney disease TN (myocardial infarction) ([facility]) VIRGILIO (obstructive sleep apnea) Pacemaker Squamous cell [...] was counselled on the risk of stroke, TN, and sudden with VIRGILIO, along with the [...] Return to clinic: documented in this encounter [facility] 11-12-2023 Note Patient Education Urology [...] Follow these instructions at home: ? Take mltj-vlc-jocquip and prescription medicines only as told by [...] develop side effec (more content not included)... [facility] 10-14-2023 Note ED Patient Education Note Orthopedics [...] under your knee. General instructions ? Take jrzo-fvd-tsebanw and prescription medicines only as told by [...] provider. Document Revised: 08/21/2020 Document Reviewed: 08/21/2020 [employer] Patient Education ? 2022 [employer]. [facility] 08-25-2023 History of Present illness Narrative Subjective [...] discussion and plan. documented in this encounter [facility] Work Phone: 08-25-2023 Instructions Jo Ann Ferrer [...] of your visit. documented in this encounter [facility] Work Phone: 02-10-2023 History of Present illness [...] recent pacemaker checks. documented in this encounter [facility] Work Phone: 02-10-2023 Instructions Alize James LPN [...] up per routine documented in this encounter [facility] Work Phone: 05-14-2022 Note PROCEDURE: XR KNEE [...] by: JOE DU Date: 2022-05-14 18:40 [facility] Evaluation note Diagnosis Sick sinus syndrome (CMS/HCC)- Primary Sinoatrial node dysfunction Mobitz type II atrioventricular block Mobitz (type) II atrioventricular block Pacemaker Cardiac pacemaker in situ Essential hypertension Unspecified essential hypertension Dilated cardiomyopathy (CMS/HCC) Other primary cardiomyopathies Paroxysmal atrial fibrillation (CMS/HCC) Atrial fibrillation documented in this encounter [facility] Work Phone: Evaluation note* Diagnosis Essential hypertension- Primary Unspecified essential hypertension Sick sinus syndrome (Multi) Sinoatrial node dysfunction Mixed hyperlipidemia Paroxysmal atrial fibrillation (Multi) Atrial fibrillation Dilated cardiomyopathy (Multi) Other primary cardiomyopathies Pacemaker Cardiac pacemaker in situ BMI 33.0-33.9,adult documented in this encounter [facility] Work Phone: Evaluation note* Diagnosis Other atopic dermatitis- Primary Seborrheic keratosis Lentigines History of SCC (squamous cell carcinoma) of skin Personal history of other malignant neoplasm of skin documented in this encounter [facility] HealthcareEvaluation note* Diagnosis Paroxysmal atrial fibrillation (Multi)- Primary Atrial fibrillation Sick sinus syndrome (Multi) Sinoatrial node dysfunction Pacemaker Cardiac pacemaker in situ Essential hypertension Unspecified essential hypertension Cardiomyopathy, unspecified type (Multi) Mixed hyperlipidemia Stage 4 chronic kidney disease (Multi) Non-smoker BMI 30.0-30.9,adult documented in this encounter [facility] Work Phone: Evaluation note* Diagnosis VIRGILIO (obstructive sleep apnea)- Primary Obstructive sleep apnea (adult) (pediatric) Hypersomnia Hypersomnia, unspecified PLMD (periodic limb movement disorder) Periodic limb movement disorder Obesity due to excess calories, unspecified classification, unspecified whether serious comorbidity present Snoring Other dyspnea and respiratory abnormality documented in this encounter [facility] HealthcareEvaluation noteNo assessment information available[facility] Work Phone: History of Present illness [...] on the basis of his improve lifestyle modification.[facility] 250 DO Work Phone: History of Present [...] the merits of diet and weight loss. 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 [facility] 600 DO Work Phone: Reason for referral (narrative)* Consultation (Routine) - Authorized Specialty Diagnoses / Procedures Referred By Elida t Referred To Contact Cardiology Diagnoses Sick sinus syndrome (CMS/HCC) Procedures Follow Up In Cardiology Varghese Caal MD [address], [address] [phone] Varghese Caal MD [address], [address] [address] Referral ID Status Reason Start Date Expiration Date V isits Requested Visits Authorized [id number] Authorized 02/10/2023 02/10/2024 1 1 [facility] Work Phone: Reason for referral (narrative)* Consultation (Routine) - Authorized Specialty Diagnoses / Procedures Referred By Contac t Referred To Contact Cardiology Diagnoses Sick sinus syndrome (Multi) Procedures Follow Up In Cardiology Varghese Caal MD [address] [place] [address] [address], [address] [address] Osvaldo Dickinson MD [address] [place] [address] [address], [address] [address] Referral ID Status Reason Start Date Expiration Date V isits Requested Visits Authorized [id number] Authorized 08/25/2023 08/24/2024 1 1 [facility] Work Phone: Chief Complaint LEIGHTON ARCINIEGA is [...] DATE CREATED AUTHOR AUTHOR'S ORGANIZ ATION 11/05/2022 [facility] ical Center DATE CREATED AUTHOR AUTHOR'S ORGANIZ ATION 11/14/2023 [facility] DATE CREATED AUTHOR AUTHOR'S ORGANIZ ATION 01/18/2024 [facility] dical [facility] EPIC DATE CREATED AUTHOR AUTHOR'S ORGANIZ ATION 02/21/2024 [facility] DATE CREATED AUTHOR AUTHOR'S ORGANIZ ATION 03/04/2024 [facility] DATE CREATED AUTHOR AUTHOR'S ORGANIZ ATION 04/02/2024 [facility] ical Center DATE CREATED AUTHOR AUTHOR'S ORGANIZ ATION 04/07/2024 [facility] ical Center DATE CREATED AUTHOR AUTHOR'S ORGANIZ ATION 04/13/2024 [facility] DATE CREATED AUTHOR AUTHOR'S ORGANIZ ATION 04/13/2024 [facility] Reason for Visit (unrecogniz ed section and content) Reason Comments Follow-up 6-9mo Reason Comments Follow-up 6-9 months Specialty Diagnoses / Procedures Referred By Elida gifford Referred To Contact Cardiology Diagnoses Sick sinus syndrome (Multi) Procedures Follow Up In Cardiology Varghese Caal MD [address] [place] [address], [address] [address] Varghese Caal MD [address] [place] [address], [address] [address] Referral ID Status Reason Start Date Expiration Date V isits Requested Visits Authorized [id number] Authorized 02/10/2023 02/10/2024 1 1 Reason Comments Skin Check Follow-up Reason Comments Follow-up 6-9 months Specialty Diagnoses / Procedures Referred By Elida gifford Referred To Contact Cardiology Diagnoses Sick sinus syndrome (Multi) Procedures Follow Up In Cardiology Varghese Caal MD [place]i, MD Osavldo [address] [facility] [address] [address] Phone: tel: fax: Referral ID Status Reason Start Date Expiration Date V isits Requested Visits Authorized [id number] Authorized 08/25/2023 08/24/2024 1 1 Reason Comments Sleep Apnea Care Teams (unrecognized sec tion and content) Email Operations Manager Relationship Specialty Start Date End Date Andrea Espinoza DO [address] [place] [phone] PCP - General 03/22/99 Email Operations Manager Relationship Specialty Start Date End Date Andrea Espinoza DO [address] [place] [phone] PCP - General 03/22/99 Email Operations Manager Relationship Specialty Start Date End Date Lori Medina MD [address] [place] [phone] PCP - General Family Medicine 10/09/22 Email Operations Manager Relationship Specialty Start Date End Date Andrea Espinoza DO [address] [place] [phone] PCP - General 03/22/99 Email Operations Manager Relationship Specialty Start Date End Date Lori Medina MD [address] [place] [phone] PCP - General Family Medicine 10/09/22 Email Operations Manager Relationship Specialty Start Date End Date Lori Medina MD [address] [facility] [place] [address] PCP - General Family Medicine 10/09/22 Team [...] BE BASED ON THE PRIMARY CLINICAL RECORDS. [employer] [facility]. provides no warranty or guarantee of the accuracy or completeness of information in this document.
--- NOTE | 2024-04-15 23:45 | ECG_ITS ---
[facility] Test Date: 2024-04-15 Pat Name: LEIGHTON ARCINIEGA Department: Room: 2031 Gender: Male Sales Hunter: : 1945 Requested By: LORI MEDINA Order Number: [id number] Reading MD: LORI MEDINA Measurements Intervals [place] Rate: 102 P: -[id number] MS: -[id number] QRS: -80 QRSD: 182 T: 96 QT: 438 QTc: 497 Interpretive Statements electronic ventricular pacemaker Electronically Signed On 04-17-2024 9:24:08 EST by LORI MEDINA
[2024-04-15 23:53] LABS: Lactate/Lactic Acid 0.9 mmol/L (0.4-2.0)
[2024-04-16] VITALS (20 sets, daily range): BP systolic 133–139; BP diastolic 68–70; PULSE 66–97; TEMP 36.7–36.8; O2SAT 91–95
[2024-04-16] MEDS: TERAZOSIN HCL 5 MG CAPSULE 10 MG PO ×2 (01:19→21:03)
[2024-04-16] MEDS: HYDRALAZINE HCL 50 MG TABLET 100 MG PO ×3 (05:29→21:03)
[2024-04-16] MEDS: HYOSCYAMINE SULFATE 0.125 MG TAB.SUBL SL ×4 (05:29→21:03)
[2024-04-16] MEDS: PIPERACILLIN SODIUM/TAZOBACTAM 3.375 GM in 0.9 % SODIUM CHLORIDE 50 ML IV ×3 (05:35→21:04)
[2024-04-16 06:17] LABS: Basophils Percent Auto 0.2 % (0.2-2.0); Eosinophils Absolute Auto 0.1 10^3/uL (0.0-0.7); Eosinophils Percent Auto 1.4 % (0.9-7.0); Hematocrit 28.2 % (42.0-54.0); Hemoglobin 9.4 g/dL (14.0-18.0); Immature Granulocytes Abs Auto 0.05 10^3/uL (0.00-0.03); Immature Granulocytes Pct Auto 0.5 % (0.0-0.5); Lymphocytes Absolute Auto 1.4 10^3/uL (1.2-3.8); Mean Corpuscular HGB Conc 33.3 g/dL (29.9-35.2); Mean Corpuscular Volume 95.9 fL (80.0-94.0); Mean Platelet Volume 8.2 fL (9.5-13.5); Monocytes Percent Auto 9.7 % (1.7-12.0); Neutrophils Absolute Auto 7.3 10^3/uL (1.4-6.5); Neutrophils Percent Auto 74.2 % (43.0-75.0); Platelet Count 203 10^3/uL (150-450); Red Blood Count 2.94 10^6/uL (4.70-6.10); Red Cell Distribution Width 14.1 % (11.0-15.0); White Blood Count 9.9 10^3/uL (4.0-11.0)
[2024-04-16 06:47] LABS: Alanine Aminotransferase 14 U/L (16-63); Albumin Globulin Ratio 0.6; Albumin Level 2.1 g/dL (3.4-5.0); Alkaline Phosphatase 58 U/L (46-116); Anion Gap 12.1; Aspartate Amino Transferase 10 U/L (15-37); BUN Creatinine Ratio 17.5; Bilirubin Total 0.3 mg/dL (0.2-1.0); Calcium 8.7 mg/dL (8.5-10.1); Carbon Dioxide 24.4 mmol/L (21.0-32.0); Chloride 104 mmol/L (98-107); Estimated GFR (African America 42 (>=60 mL/min/1.73m^2); Estimated GFR (Non-African Ame 35 (>=60 mL/min/1.73m^2); Globulin 3.6 g/dL; Glucose 83 mg/dL (74-106); Magnesium 1.8 mg/dL (1.8-2.4); Potassium 3.5 mmol/L (3.5-5.1); Sodium 137 mmol/L (136-145); Total Protein 5.7 g/dL (6.4-8.2); Troponin I High Sensitivity 45.3 pg/mL (4.0-76.1)
[2024-04-16] MEDS: OXYBUTYNIN CHLORIDE 5 MG TAB XL PO (08:16)
[2024-04-16] MEDS: CARVEDILOL 6.25 MG TABLET PO ×2 (08:16→20:49)
[2024-04-16] MEDS: AMLODIPINE BESYLATE 5 MG TABLET 10 MG PO (08:16)
[2024-04-16] MEDS: INSULIN GLARGINE 300 UNIT/3 ML INSULN.PEN 26 UNIT SQ ×2 (08:16→20:54)
[2024-04-16] MEDS: SOLIFENACIN SUCCINATE 5 MG TABLET PO (08:16)
[2024-04-16] MEDS: ALLOPURINOL 300 MG TABLET PO (08:16)
[2024-04-16] MEDS: OMEPRAZOLE 20 MG CAPSULE.DR PO (08:16)
[2024-04-16] MEDS: APIXABAN 5 MG TABLET PO ×2 (08:16→20:49)
[2024-04-16] MEDS: FERROUS SULFATE 325 MG TABLET PO (08:16)
[2024-04-16] MEDS: ATORVASTATIN CALCIUM 10 MG TABLET PO (08:16)
[2024-04-16] MEDS: MULTIVITAMIN TABLET 1 TAB PO (08:16)
[2024-04-16] MEDS: GLIPIZIDE 10 MG TABLET PO (08:16)
[2024-04-16] MEDS: FLUCONAZOLE 100 MG TABLET 200 MG PO (08:16)
[2024-04-16] MEDS: SPIRONOLACTONE 25 MG TABLET PO (08:16)
[2024-04-16] MEDS: IPRATROPIUM/ALBUTEROL SULFATE 3 ML AMPUL.NEB IH ×3 (10:47→22:47)
--- NOTE | 2024-04-16 10:51 | RESP.RT ---
Titrated down from 2lpm [place]
[2024-04-16] MEDS: FUROSEMIDE 20 MG/2 ML VIAL 40 MG IVP ×2 (11:38→20:29)
--- NOTE | 2024-04-16 12:00 | P.HP_ITS ---
HPI H&P: HPI History of Present Illness Chief complaint: sob CHF Narrative: 78-year-old male had at least 5 admissions in the past 2 months presented to ER with worsening shortness of breath along with feeling cold and chills for 1 to 2 days. Also reports productive cough with yellow sputum. He was just discharged from the hospital on for hospital-acquired pneumonia and was feeling better until 1 to 2 days ago. In ER, he was noted to have borderline hypoxia with pulse ox in the 90s with increased work of breathing/tachypnea and was admitted for treatment of COPD exacerbation/acute on chronic diastolic heart failure and possible atypical pneumonia. Earlier today when I evaluated him, he was still feeling short of breath and had to stop to catch his breath during conversation. He reports copious amount of purulent sputum. Overnight patient was started on IV Zosyn and vancomycin for presumed hospital-acquired pneumonia and was also given 1 dose of IV Lasix overnight. He reports that shortness of breath is worse when he is laying down and on clinical exam appears to have volume overload based on elevated JVD and lung exam. Opioid HPI Opioid Management Most Recent Pain and Opioid Data: Last Pain Scale 8 04/08/24 17:53 04/08/24 Last Pain Assessment 04/16/24 11:43 Last ORT Total Score 6 04/15/24 22:35 04/15/24 Last ORT Risk Category Moderate Risk 04/15/24 22:35 04/15/24 Review of Systems ROS Status of ROS 10 or more systems reviewed and unremark able except as noted in history and below [facility] Medical History (Updated 04/16/24 @ 12:07 by Shaikh Sugey MD) Severe sepsis ?A41.9 - Sepsis, unspecified organism (ICD-10) ?R65.20 - Severe sepsis without septic shock (ICD-10) COPD exacerbation ?J44.1 - Chronic obstructive pulmonary disease with (acute) exacerbation (ICD-10) Acute exacerbation of chronic heart failure ?I50.9 - Heart failure, unspecified (ICD-10) Acute hypoxemic respiratory failure ?J96.01 - Acute respiratory failure with hypoxia (ICD-10) Pneumonia ?J18.9 - Pneumonia, unspecified organism (ICD-10) Acute kidney injury ?N17.9 - Acute kidney failure, unspecified (ICD-10) Bladder spasm ?N32.89 - Other specified disorders of bladder (ICD-10) Urinary tract infection ?N39.0 - Urinary tract infection, site not specified (ICD-10) Urinary tract infection ?N39.0 - Urinary tract infection, site not specified (ICD-10) Failure of outpatient treatment ?Z78.9 - Other specified health status (ICD-10) Urinary tract infection ?N39.0 - Urinary tract infection, site not specified (ICD-10) Skin cancer ?C44.90 - Unspecified malignant neoplasm of skin, unspecified (ICD-10) Myocardial infarction ?I21.9 - Acute myocardial infarction, unspecified (ICD-10) Pacemaker ?Z95.0 - Presence of cardiac pacemaker (ICD-10) CKD (chronic kidney disease) ?N18.9 - Chronic kidney disease, unspecified (ICD-10) CAD (coronary artery disease) ?I25.10 - Atherosclerotic heart disease of [place] coronary artery without angina pectoris (ICD-10) A-fib ?I48.91 - Unspecified atrial fibrillation (ICD-10) Erectile dysfunction ?N52.9 - Male erectile dysfunction, unspecified (ICD-10) UTI (urinary tract infection) ?N39.0 - Urinary tract infection, site not specified (ICD-10) GERD (gastroesophageal reflux disease) ?K21.9 - Gastro-esophageal reflux disease without esophagitis (ICD-10) Hypertension ?I10 - Essential (primary) hypertension (ICD-10) Diabetes ?E11.9 - Type 2 diabetes mellitus without complications (ICD-10) Surgical History History of arthroscopic knee surgery ?Z98.890 - Other specified postprocedural states (ICD-10) Hx of tonsillectomy ?Z90.89 - Acquired absence of other organs (ICD-10) Family History Mother Family history of CHF (congestive heart failure) Family history of myocardial infarction Family history of hypertension Family history of diabetes mellitus Family history of COPD (chronic obstructive pulmonary disease) Grandmother Family history of CHF (congestive heart failure) Brother Family history of CHF (congestive heart failure) Family history of myocardial infarction Family history of hypertension Family history of COPD (chronic obstructive pulmonary disease) Father Kidney failure Social History Within the past year, how often did you have a drink containing alcohol: never Score interpretation: A score less than 4 is consistent with normal alcohol consumption. Smoking status: Former smoker Non-prescribed substance use: denies use Known occupational exposures/hazards: No Highest level of school completed/degree received: some college, no degree Do you want help with school or training: No Little interest or pleasure in doing things: not at all Feeling down, depressed, or hopeless: not at all Gender Identity: male Meds Home Medications and Allergies Home Medications ?Medication ?Instructions ?Recorded ?Confirmed ?Type acetaminophen 500 mg capsule 1,000 mg PO Q6H PRN fever or pain 02/26/24 04/15/24 History allopurinol 300 mg tablet 300 mg PO DAILY 02/26/24 04/15/24 History amlodipine 10 mg tablet 10 mg PO DAILY 02/26/24 04/15/24 History apixaban 5 mg tablet (Eliquis) 5 mg PO Q12H 02/26/24 04/15/24 History aspirin 81 mg tablet,delayed 81 mg PO .weekly 02/26/24 04/15/24 History release (Adult Aspirin Regimen) calcium 315 mg (as 1 tab PO DAILY 02/26/24 04/15/24 History citrate)-vitamin D3 5 mcg (200 unit) tablet (Calcium Citrate + D) carvedilol 6.25 mg tablet 6.25 mg PO Q12H 02/26/24 04/15/24 History cyanocobalamin (vitamin B-12) 1,000 mcg PO DAILY 02/26/24 04/15/24 History 1,000 mcg tablet (Vitamin B-12) ferrous sulfate 325 mg (65 mg 325 mg PO DAILY 02/26/24 04/15/24 History iron) tablet (iron) furosemide 20 mg tablet 20 mg PO Q12H 02/26/24 04/15/24 History glipizide 10 mg tablet 10 mg PO BID 02/26/24 04/15/24 History hydralazine 50 mg tablet 100 mg PO Q8H 02/26/24 04/15/24 History insulin glargine 100 unit/mL (3 26 unit subcut BID 02/26/24 04/15/24 History mL) subcutaneous pen multivitamin (Daily Multi-Vitamin 1 tab PO DAILY 02/26/24 04/15/24 History tablet) omeprazole 20 mg capsule,delayed 20 mg PO DAILY 02/26/24 04/15/24 History release semaglutide 1 mg/dose (4 mg/3 mL) 1 mg subcut QWEEK 02/26/24 04/15/24 History subcutaneous pen injector (Ozempic) sildenafil 100 mg tablet 100 mg PO Q24H PRN sexual activity 02/26/24 04/15/24 History simvastatin 20 mg tablet 20 mg PO DAILY 02/26/24 04/15/24 History spironolactone 25 mg tablet 25 mg PO DAILY 02/26/24 04/15/24 History tacrolimus 0.1 % topical ointment 1 applic topical Q12H PRN skin 02/26/24 04/15/24 History irritation terazosin 10 mg capsule 10 mg PO BEDTIME 02/26/24 04/15/24 History hyoscyamine sulfate 0.125 mg 0.125 mg sublingual QID #40 tabs 03/30/24 04/15/24 Rx sublingual tablet mirabegron 25 mg tablet,extended 25 mg PO DAILY #30 tabs 03/30/24 04/15/24 Rx release 24 hr (Myrbetriq) diclofenac sodium 1 % topical gel 2 g topical BID 04/05/24 04/15/24 History ruxolitinib 1.5 % topical cream 1 applic topical BID PRN dermatitis 04/05/24 04/15/24 History (Opzelura) tolterodine 2 mg capsule,extended 2 mg PO Q24H 04/05/24 04/15/24 History release 24 hr benzonatate 100 mg capsule 200 mg (2 x 100 mg) PO Q8H PRN 04/08/24 04/15/24 Rx Cough #24 caps levofloxacin 750 mg tablet 750 mg PO DAILY 7 days #7 tabs 04/08/24 04/15/24 Rx fluconazole 200 mg tablet 400 mg PO Q24H 04/16/24 04/16/24 History Allergies Allergy/AdvReac Type Severity Reaction Status Date / Time fosinopril (From Monopril) Allergy Severe shortness Verified 04/05/24 20:09 of breath metoprolol Allergy Severe shortness Verified 04/05/24 20:09 of breath strawberry Allergy Severe Rash Verified 04/05/24 20:09 Exam Constitutional Vital Signs, click to edit/add: Last Vital Signs Temp 98.3 F 04/16/24 08:24 Pulse 66 04/16/24 10:48 Resp 16 04/16/24 08:24 BP 133/68 04/16/24 08:24 Pulse Ox 95 04/16/24 10:48 O2 Del Method Nasal Cannula 04/16/24 10:48 O2 Flow Rate 1 04/16/24 10:48 Documenting provider has reviewed patient's vital signs: yes Common normals: oriented x3 General appearance: cooperative Other: appears SOB. Respiratory Common normals: normal respiratory effort Effort & inspection: tachypneic Auscultation: rales Other: Conversational dyspnea noted. Cardio Common normals: regular rate, S1 normal heart sound and S2 normal heart sound Jugular venous distention: JVD Rate: regular rate Rhythm: abnormal rhythm Heart sounds: S1 normal and S2 normal GI Common normals: Normal to inspection, nondistended, normoactive bowel sounds present, soft to palpation, non-tender and no hepatosplenomegaly Palpation: soft and no hepatosplenomegaly Extremity Common normals: no clubbing, cyanosis or edema Neuro Common normals: oriented x3, moves all extremities and no focal motor deficits Psych Common normals: mental status grossly normal, denies hallucinations, denies homicidal ideation and denies suicidal ideation Results Labs Labs: Short CBC 04/15/24 04/16/24 Range/Units 19:50 05:59 WBC 11.9 H 9.9 (4.0-11.0) 10^3/uL Hgb 11.1 L 9.4 L (14.0-18.0) g/dL Hct 33.2 L 28.2 L (42.0-54.0) % Plt Count 263 203 (150-450) 10^3/uL BMP 04/15/24 04/16/24 19:50 05:59 Sodium 135 L 137 Potassium 4.1 3.5 Chloride 101 104 Carbon Dioxide 23.1 24.4 BUN 36.0 H 33.0 H Creatinine 2.02 H 1.89 H Glucose 153 H 83 Calcium 8.9 8.7 Liver Function 04/15/24 04/16/24 Range/Units 19:50 05:59 Total Bilirubin 0.4 0.3 (0.2-1.0) mg/dL AST 14 L 10 L (15-37) U/L ALT 18 14 L (16-63) U/L Alkaline Phosphatase 71 58 (46-116) U/L Albumin 2.5 L 2.1 L (3.4-5.0) g/dL Assessment and Plan Assessment and Plan (1) Acute on chronic diastolic (congestive) heart failure: Assessment and Plan: Volume overload on exam. Started on IV Lasix 40 twice daily. Monitor intake and output. Daily weights. No need for repeat echo as recently done as showed borderline low ejection fraction and grade 2 diastolic dysfunction. (2) COPD exacerbation: Assessment and Plan: Diminished air entry and appears bronchospastic on exam. Started on IV Solu- Medrol and DuoNebs. (3) Hospital acquired PNA: Assessment and Plan: Atypical pneumonia on chest x-ray. Multiple hospital admissions recently and treatment and broad-spectrum antibiotics. At high risk of resistant organisms. Obtain a sputum culture. Started on IV vancomycin and Zosyn. (4) CKD (chronic kidney disease): Assessment and Plan: CKD stage IIIb. Monitor serum creatinine closely while on Lasix Qualifiers: Chronic kidney disease stage: stage 3 (moderate) Chronic kidney disease stage 3 subtype: stage 3b (GFR 30-44) Qualified Code(s): N18.32 - Chronic ki dney disease, stage 3b (5) CAD (coronary artery disease): Assessment and Plan: No evidence of active cardiac ischemia. Continue with home medications Qualifiers: Coronary Disease-Associated Artery/Lesion type: [place] artery [place] vs. transplanted heart: [place] heart Associated angina: without angina Qualified Code(s): I25.10 - Atherosclerotic heart disease of [place] coronary artery without angina pectoris (6) A-fib: Assessment and Plan: Rate controlled A-fib. On Eliquis for anticoagulation Qualifiers: Atrial fibrillation type: paroxysmal Qualified Code(s): I48.0 - Paroxysmal atrial fibrillation (7) Hypertension: Assessment and Plan: Blood pressure is stable. Continue with home medications Qualifiers: Hypertension type: primary hypertension Qualified Code(s): I10 - Essential (primary) hypertension (8) Diabetes: Assessment and Plan: Sliding scale insulin. If poorly controlled will need to add basal insulin Qualifiers: Diabetes mellitus type: type 2 Diabetes mellitus retirement insulin use: without retirement use Diabetes mellitus complication status: with kidney complications Diabetes mellitus complication detail: with chronic kidney disease Chronic kidney disease stage: stage 3 (moderate) Chronic kidney disease stage 3 subtype: stage 3b (GFR 30-44) Qualified Code(s): E11.22 - Type 2 diabetes mellitus with diabetic chronic kidney disease; N18.32 - Chronic kidney disease, stage 3b Urinary Catheter Management Urinary Catheter Management Urethral: Cath placed during this visit: no
[2024-04-16] MEDS: METHYLPREDNISOLONE SOD SUCC PF 40 MG/ML VIAL IVP ×2 (14:32→21:03)
--- NOTE | 2024-04-16 16:02 | ECG_ITS ---
[facility] Test Date: 2024-04-16 Pat Name: LEIGHTON ARCINIEGA Department: Room: Gender: Male Healthcare Manager: : 1945 Requested By: [id number] Order Number: [id number] Reading MD: LORI MEDINA Measurements Intervals [place] Rate: 85 P: HI: QRS: -68 QRSD: 202 T: 103 QT: 477 QTc: 570 Interpretive Statements ELECTRONIC VENTRICULAR PACEMAKER ABNORMAL RHYTHM ECG Compared to ECG 04/15/2024 19:58:01 No significant changes Electronically Signed On 04-17-2024 9:25:00 EST by LORI MEDINA
[2024-04-16] MEDS: FUROSEMIDE 40 MG/4 ML VIAL IVP (16:05)
[2024-04-16] MEDS: NITROGLYCERIN 0.4 MG BOTTLE SL (16:05)
[2024-04-16 20:05] LABS: Troponin I High Sensitivity 32.8 pg/mL (4.0-76.1)
[2024-04-16] MEDS: VANCOMYCIN HCL 1,000 MG in 0.9 % SODIUM CHLORIDE 250 ML 250 MG IV (20:50)
[2024-04-16] MEDS: ACETAMINOPHEN 325 MG TABLET 650 MG PO (21:58)
[2024-04-16 22:32] LABS: Troponin I High Sensitivity 30.5 pg/mL (4.0-76.1)
[2024-04-17] VITALS (22 sets, daily range): BP systolic 117–156; BP diastolic 64–77; PULSE 69–95; TEMP 36.3–36.7; O2SAT 91–94; BMI 30.1
[2024-04-17] MEDS: IPRATROPIUM/ALBUTEROL SULFATE 3 ML AMPUL.NEB IH ×4 (04:06→22:07)
[2024-04-17] MEDS: HYOSCYAMINE SULFATE 0.125 MG TAB.SUBL SL ×4 (05:33→21:05)
[2024-04-17] MEDS: PIPERACILLIN SODIUM/TAZOBACTAM 3.375 GM in 0.9 % SODIUM CHLORIDE 50 ML IV ×3 (05:33→22:02)
[2024-04-17] MEDS: HYDRALAZINE HCL 50 MG TABLET 100 MG PO ×3 (05:35→21:05)
[2024-04-17] MEDS: METHYLPREDNISOLONE SOD SUCC PF 40 MG/ML VIAL IVP ×3 (05:56→22:07)
[2024-04-17 05:59] LABS: Hematocrit 28.9 % (42.0-54.0); Hemoglobin 9.8 g/dL (14.0-18.0); Immature Granulocytes Abs Auto 0.03 10^3/uL (0.00-0.03); Immature Granulocytes Pct Auto 0.4 % (0.0-0.5); Lymphocytes Absolute Auto 0.4 10^3/uL (1.2-3.8); Mean Corpuscular HGB Conc 33.9 g/dL (29.9-35.2); Mean Corpuscular Hemoglobin 32.3 pg (25.9-34.0); Mean Corpuscular Volume 95.4 fL (80.0-94.0); Mean Platelet Volume 8.5 fL (9.5-13.5); Monocytes Absolute Auto 0.1 10^3/uL (0.3-0.8); Neutrophils Absolute Auto 6.5 10^3/uL (1.4-6.5); Neutrophils Percent Auto 93.6 % (43.0-75.0); Platelet Count 221 10^3/uL (150-450); Red Blood Count 3.03 10^6/uL (4.70-6.10); Red Cell Distribution Width 13.8 % (11.0-15.0)
[2024-04-17 06:36] LABS: Alanine Aminotransferase 15 U/L (16-63); Albumin Globulin Ratio 0.6; Albumin Level 2.2 g/dL (3.4-5.0); Alkaline Phosphatase 57 U/L (46-116); Anion Gap 15.3; Aspartate Amino Transferase 11 U/L (15-37); BUN Creatinine Ratio 19.7; Bilirubin Total 0.3 mg/dL (0.2-1.0); Calcium 8.9 mg/dL (8.5-10.1); Carbon Dioxide 22.6 mmol/L (21.0-32.0); Chloride 100 mmol/L (98-107); Estimated GFR (African America 33 (>=60 mL/min/1.73m^2); Estimated GFR (Non-African Ame 27 (>=60 mL/min/1.73m^2); Globulin 3.8 g/dL; Glucose 337 mg/dL (74-106); Potassium 3.9 mmol/L (3.5-5.1); Sodium 134 mmol/L (136-145)
[2024-04-17] MEDS: 0.9 % SODIUM CHLORIDE 250 ML 10 ML IV (08:42)
[2024-04-17] MEDS: LINEZOLID IN DEXTROSE 5% 600 MG/300 ML PIGGYBACK 300 MG IV (08:42)
[2024-04-17] MEDS: SOLIFENACIN SUCCINATE 5 MG TABLET PO (08:47)
[2024-04-17] MEDS: ALLOPURINOL 300 MG TABLET PO (08:47)
[2024-04-17] MEDS: OXYBUTYNIN CHLORIDE 5 MG TAB XL PO (08:47)
[2024-04-17] MEDS: MULTIVITAMIN TABLET 1 TAB PO (08:47)
[2024-04-17] MEDS: CARVEDILOL 6.25 MG TABLET PO ×2 (08:47→21:05)
[2024-04-17] MEDS: FERROUS SULFATE 325 MG TABLET PO (08:47)
[2024-04-17] MEDS: FLUCONAZOLE 100 MG TABLET 200 MG PO (08:47)
[2024-04-17] MEDS: SPIRONOLACTONE 25 MG TABLET PO (08:47)
[2024-04-17] MEDS: AMLODIPINE BESYLATE 5 MG TABLET 10 MG PO (08:47)
[2024-04-17] MEDS: ATORVASTATIN CALCIUM 10 MG TABLET PO (08:47)
[2024-04-17] MEDS: ASPIRIN 81 MG TABLET.DR PO (08:47)
[2024-04-17] MEDS: INSULIN ASPART 300 UNIT/3 ML PEN SUBQ ×3 (08:48→21:06)
[2024-04-17] MEDS: OMEPRAZOLE 20 MG CAPSULE.DR PO (08:48)
[2024-04-17] MEDS: INSULIN GLARGINE 300 UNIT/3 ML INSULN.PEN 26 UNIT SQ ×2 (08:48→21:07)
[2024-04-17] MEDS: APIXABAN 5 MG TABLET PO ×2 (08:48→21:05)
--- NOTE | 2024-04-17 09:12 | CM.NOTE ---
Rounds made with Dr. Dutta, no discharge today Rn will attempt to wean oxygen. Possible discharge to home tomorrow. Pt up ad buzz in room, no discharge needs identified.
--- NOTE | 2024-04-17 09:25 | CM.NOTE ---
Important Message From Medicare discussed with pt, pt verbalizes understanding and signs paper. Original given to pt and copy placed in pt's chart.
--- NOTE | 2024-04-17 09:52 | P.PN_ITS ---
Progress Note: Subjective Subjective Interval history: Patient states breathing is somewhat better, but still requiring supplemental oxygen, does not use supplemental oxygen at home Exam Constitutional Vital Signs, click to edit/add: Last Vital Signs Temp 97.8 F 04/17/24 07:41 Pulse 95 H 04/17/24 08:00 Resp 16 04/17/24 07:41 BP 126/69 04/17/24 07:41 Pulse Ox 92 L 04/17/24 07:41 O2 Del Method Nasal Cannula 04/17/24 07:41 O2 Flow Rate 1 04/17/24 07:41 Documenting provider has reviewed patient's vital signs: yes Common normals: no apparent distress HENMT Common normals: normocephalic Respiratory Common normals: normal respiratory effort (Some cough throughout the evaluation) Auscultation: rhonchi; no rales Cardio Common normals: regular rate and regular rhythm Extremity Common normals: normal to inspection, full ROM and no clubbing, cyanosis or edema Progress Note: Objective Labs Labs: Short CBC 04/17/24 Range/Units 05:23 WBC 7.0 (4.0-11.0) 10^3/uL Hgb 9.8 L (14.0-18.0) g/dL Hct 28.9 L (42.0-54.0) % Plt Count 221 (150-450) 10^3/uL BMP 04/17/24 05:23 Sodium 134 L Potassium 3.9 Chloride 100 Carbon Dioxide 22.6 BUN 46.0 H Creatinine 2.34 H Glucose 337 H Calcium 8.9 Liver Function 04/17/24 Range/Units 05:23 Total Bilirubin 0.3 (0.2-1.0) mg/dL AST 11 L (15-37) U/L ALT 15 L (16-63) U/L Alkaline Phosphatase 57 (46-116) U/L Albumin 2.2 L (3.4-5.0) g/dL Progress Note: A&P Assessment and Plan (1) Acute on chronic diastolic (congestive) heart failure: (2) COPD exacerbation: (3) Hospital acquired PNA: (4) CKD (chronic kidney disease): Qualifiers: Chronic kidney disease stage: stage 3 (moderate) Chronic kidney disease stage 3 subtype: stage 3b (GFR 30-44) Qualified Code(s): N18.32 - Chronic kidney disease, stage 3b (5) CAD (coronary artery disease): Qualifiers: Associated angina: without angina Coronary Disease-Associated Artery/Lesion type: [place] artery [place] vs. transplanted heart: [place] heart Qualified Code(s): I25.10 - Atherosclerotic heart disease of [place] coronary artery without angina pectoris (6) A-fib: Qualifiers: Atrial fibrillation type: paroxysmal Qualified Code(s): I48.0 - Paroxysmal atrial fibrillation (7) Hypertension: Qualifiers: Hypertension type: primary hypertension Qualified Code(s): I10 - Essential (primary) hypertension (8) Diabetes: Qualifiers: Chronic kidney disease stage: stage 3 (moderate) Chronic kidney disease stage 3 subtype: stage 3b (GFR 30-44) Diabetes mellitus complication detail: with chronic kidney disease Diabetes mellitus complication status: with kidney complications Diabetes mellitus terminal system operator insulin use: without terminal system operator use Diabetes mellitus type: type 2 Qualified Code(s): E11.22 - Type 2 diabetes mellitus with diabetic chronic kidney disease; N18.32 - Chronic kidney disease, stage 3b Plan Admission findings: Acute hypoxemia with O2 sat of 90% on 3 L, sinus tachycardia, uncontrolled hypertension due to healthcare acquired pneumonia. Causing acute exacerbation of COPD Elevation in BNP-I feel this is more related to his kidney function, he has no peripheral edema and I do not hear rales on exam, will hold off on further diuretics CKD stage IIIb. Deteriorated today, continue to monitor CAD (coronary artery disease): No chest pain A-fib: Rate controlled, paced rhythm on ECG Hypertension: Continue with current medications Diabetes: Continue with current medications Iron deficiency anemia as well as anemia of chronic kidney disease-continue to monitor daily Severe protein calorie malnutrition-diet management Admission status: Patient admitted with healthcare acquired pneumonia requiring supplemental oxygen, medically necessary treatment will span 2 midnights. Urinary Catheter Management Urinary Catheter Management Urethral: Cath placed during this visit: no
[2024-04-17 12:40] LABS: Glucometer 300 mg/dL (74-106)
[2024-04-17] MEDS: LINEZOLID IN DEXTROSE 5% 600 MG/300 ML PIGGYBACK 200 MG IV (20:12)
[2024-04-17] MEDS: TERAZOSIN HCL 5 MG CAPSULE 10 MG PO (21:05)
[2024-04-17] MEDS: ENSURE HP 237 ML LIQUID PO (21:05)
[2024-04-18] VITALS (26 sets, daily range): BP systolic 133–146; BP diastolic 59–80; PULSE 56–96; TEMP 36.3–36.7; O2SAT 90–94
[2024-04-18] MEDS: HYDRALAZINE HCL 50 MG TABLET 100 MG PO ×3 (05:09→21:06)
[2024-04-18] MEDS: PIPERACILLIN SODIUM/TAZOBACTAM 3.375 GM in 0.9 % SODIUM CHLORIDE 50 ML IV ×3 (05:09→22:41)
[2024-04-18] MEDS: HYOSCYAMINE SULFATE 0.125 MG TAB.SUBL SL ×4 (05:09→21:07)
[2024-04-18] MEDS: IPRATROPIUM/ALBUTEROL SULFATE 3 ML AMPUL.NEB IH ×4 (05:23→22:00)
[2024-04-18] MEDS: METHYLPREDNISOLONE SOD SUCC PF 40 MG/ML VIAL IVP ×2 (05:38→17:52)
[2024-04-18 05:43] LABS: Hemoglobin 9.5 g/dL (14.0-18.0); Mean Corpuscular HGB Conc 33.9 g/dL (29.9-35.2); Mean Corpuscular Volume 94.3 fL (80.0-94.0); Mean Platelet Volume 8.5 fL (9.5-13.5); Platelet Count 267 10^3/uL (150-450); Red Blood Count 2.97 10^6/uL (4.70-6.10); Red Cell Distribution Width 13.7 % (11.0-15.0); White Blood Count 16.8 10^3/uL (4.0-11.0)
[2024-04-18 06:03] LABS: Alanine Aminotransferase 17 U/L (16-63); Albumin Globulin Ratio 0.6; Albumin Level 2.2 g/dL (3.4-5.0); Alkaline Phosphatase 58 U/L (46-116); Anion Gap 12.8; Aspartate Amino Transferase 12 U/L (15-37); BUN Creatinine Ratio 23.3; Bilirubin Total 0.3 mg/dL (0.2-1.0); Calcium 8.9 mg/dL (8.5-10.1); Carbon Dioxide 23.2 mmol/L (21.0-32.0); Chloride 99 mmol/L (98-107); Estimated GFR (African America 30 (>=60 mL/min/1.73m^2); Estimated GFR (Non-African Ame 24 (>=60 mL/min/1.73m^2); Globulin 3.8 g/dL; Glucose 227 mg/dL (74-106); Sodium 131 mmol/L (136-145)
[2024-04-18 06:29] LABS: Lymphocytes Absolute Manual 0.16 10^3/uL (1.20-3.80); Monocytes Absolute Manual 0.16 10^3/uL (0.30-0.80); Segmented Neut Absolute Manual 16.46 10^3/uL (1.4-6.5)
[2024-04-18 06:30] LABS: Hypochromasia 2+
[2024-04-18] MEDS: INSULIN ASPART 300 UNIT/3 ML PEN SUBQ ×4 (08:37→21:16)
--- NOTE | 2024-04-18 08:48 | P.PN_ITS ---
Progress Note: Subjective Subjective Interval history: Patient states breathing is somewhat better, but still requiring supplemental oxygen, does not use supplemental oxygen at home, still dyspnea with activity Exam Constitutional Vital Signs, click to edit/add: Last Vital Signs Temp 97.7 F 04/18/24 08:00 Pulse 78 04/18/24 08:00 Resp 18 04/18/24 08:00 BP 136/64 04/18/24 08:00 Pulse Ox 92 L 04/18/24 08:00 O2 Del Method Nasal Cannula 04/18/24 08:00 O2 Flow Rate 1 04/18/24 08:00 Documenting provider has reviewed patient's vital signs: yes Common normals: no apparent distress HENMT Common normals: normocephalic Respiratory Common normals: normal respiratory effort (Some of the) Auscultation: rhonchi (Better air movement); no rales Cardio Common normals: regular rate and regular rhythm Extremity Common normals: normal to inspection, full ROM and no clubbing, cyanosis or magalis ma Progress Note: Objective Labs Labs: Short CBC 04/18/24 Range/Units 05:14 WBC 16.8 H (4.0-11.0) 10^3/uL Hgb 9.5 L (14.0-18.0) g/dL Hct 28.0 L (42.0-54.0) % Plt Count 267 (150-450) 10^3/uL BMP 04/18/24 05:14 Sodium 131 L Potassium 4.0 Chloride 99 Carbon Dioxide 23.2 BUN 60.0 H Creatinine 2.57 H Glucose 227 H Calcium 8.9 Liver Function 04/18/24 Range/Units 05:14 Total Bilirubin 0.3 (0.2-1.0) mg/dL AST 12 L (15-37) U/L ALT 17 (16-63) U/L Alkaline Phosphatase 58 (46-116) U/L Albumin 2.2 L (3.4-5.0) g/dL Progress Note: A&P Assessment and Plan (1) Acute on chronic diastolic (congestive) heart failure: (2) COPD exacerbation: (3) Hospital acquired PNA: (4) CKD (chronic kidney disease): Qualifiers: Chronic kidney disease stage: stage 3 (moderate) Chronic kidney disease stage 3 subtype: stage 3b (GFR 30-44) Qualified Code(s): N18.32 - Chronic kidney disease, stage 3b (5) CAD (coronary artery disease): Qualifiers: Associated angina: without angina Coronary Disease-Associated Artery/Lesion type: [place] artery [place] vs. transplanted heart: [place] heart Qualified Code(s): I25.10 - Atherosclerotic heart disease of [place] coronary artery without angina pectoris (6) A-fib: Qualifiers: Atrial fibrillation type: paroxysmal Qualified Code(s): I48.0 - Paro xysmal atrial fibrillation (7) Hypertension: Qualifiers: Hypertension type: primary hypertension Qualified Code(s): I10 - Essential (primary) hypertension (8) Diabetes: Qualifiers: Chronic kidney disease stage: stage 3 (moderate) Chronic kidney disease stage 3 subtype: stage 3b (GFR 30-44) Diabetes mellitus complication detail: with chronic kidney disease Diabetes mellitus complication status: with kidney complications Diabetes mellitus alf insulin use: without alf use Diabetes mellitus type: type 2 Qualified Code(s): E11.22 - Type 2 diabetes mellitus with diabetic chronic kidney disease; N18.32 - Chronic kidney disease, stage 3b Plan Admission findings: Acute hypoxemia with O2 sat of 90% on 3 L, sinus tachycardia, uncontrolled hypertension due to healthcare acquired pneumonia. Ca using acute exacerbation of COPD-continue current treatment plan patient is slowly improving, down to 1 L nasal cannula supplemental oxygen Elevation in BNP-I feel this is more related to his kidney function, he has no peripheral edema and I do not hear rales on exam, will hold off on further diuretics-continue to monitor CKD stage IIIb. Deteriorated today, continue to monitor CAD (coronary artery disease): No chest pain A-fib: Rate controlled, paced rhythm on ECG Hypertension: Continue with current medications Diabetes: Continue with current medications Iron deficiency anemia as well as anemia of chronic kidney disease-continue to monitor daily Severe protein calorie malnutrition-diet management Admission status: Patient admitted with healthcare acquired pneumonia requiring supplemental oxygen, medically necessary treatment will span 2 midnights. Urinary Catheter Management Urinary Catheter Management Urethral: Cath placed during this visit: no
--- NOTE | 2024-04-18 09:28 | CM.NOTE ---
Rounds made with Dr. Dutta, no discharge today. Pt continues to require oxygen and c/o increased shortness of breath today.
--- NOTE | 2024-04-18 10:06 | RESP.RT ---
placed on room air
[2024-04-18] MEDS: ENSURE HP 237 ML LIQUID PO ×2 (10:32→20:57)
[2024-04-18] MEDS: SOLIFENACIN SUCCINATE 5 MG TABLET PO (10:32)
[2024-04-18] MEDS: FERROUS SULFATE 325 MG TABLET PO (10:33)
[2024-04-18] MEDS: OXYBUTYNIN CHLORIDE 5 MG TAB XL PO (10:33)
[2024-04-18] MEDS: APIXABAN 5 MG TABLET PO ×2 (10:33→20:57)
[2024-04-18] MEDS: ALLOPURINOL 300 MG TABLET PO (10:33)
[2024-04-18] MEDS: FLUCONAZOLE 100 MG TABLET 200 MG PO (10:33)
[2024-04-18] MEDS: CARVEDILOL 6.25 MG TABLET PO ×2 (10:33→20:57)
[2024-04-18] MEDS: AMLODIPINE BESYLATE 5 MG TABLET 10 MG PO (10:34)
[2024-04-18] MEDS: ATORVASTATIN CALCIUM 10 MG TABLET PO (10:34)
[2024-04-18] MEDS: OMEPRAZOLE 20 MG CAPSULE.DR PO (10:34)
[2024-04-18] MEDS: SPIRONOLACTONE 25 MG TABLET PO (10:34)
[2024-04-18] MEDS: MULTIVITAMIN TABLET 1 TAB PO (10:34)
[2024-04-18] MEDS: INSULIN GLARGINE 300 UNIT/3 ML INSULN.PEN 26 UNIT SQ ×2 (10:35→21:15)
[2024-04-18] MEDS: LINEZOLID IN DEXTROSE 5% 600 MG/300 ML PIGGYBACK 300 MG IV ×2 (10:42→20:58)
[2024-04-18] MEDS: 0.9 % SODIUM CHLORIDE 250 ML 10 ML IV (11:40)
--- NOTE | 2024-04-18 15:49 | NUTR.NU ---
Most lab results have worsened when compared to yesterday's results. Sodium remains low (131 04/18/24 vs. 134 04/17/24) and renal function has declined (BUN 60 today vs 46 yesterday, creatinine 2.57 vs 2.34, eGFR 24 vs 27). Text to Dr. Dutta suggesting pt may benefit from 1800 mL fluid restriction.
[2024-04-18] MEDS: TERAZOSIN HCL 5 MG CAPSULE 10 MG PO (21:08)
[2024-04-18] MEDS: LORAZEPAM 0.5 MG TABLET PO (22:54)
[2024-04-19] VITALS (26 sets, daily range): BP systolic 130–143; BP diastolic 57–73; PULSE 64–107; TEMP 36.1–36.6; O2SAT 88–93
[2024-04-19] MEDS: IPRATROPIUM/ALBUTEROL SULFATE 3 ML AMPUL.NEB IH ×4 (04:17→22:56)
[2024-04-19] MEDS: METHYLPREDNISOLONE SOD SUCC PF 40 MG/ML VIAL IVP (04:58)
[2024-04-19] MEDS: PIPERACILLIN SODIUM/TAZOBACTAM 3.375 GM in 0.9 % SODIUM CHLORIDE 50 ML IV (05:00)
[2024-04-19] MEDS: HYOSCYAMINE SULFATE 0.125 MG TAB.SUBL SL ×4 (05:01→22:27)
[2024-04-19] MEDS: HYDRALAZINE HCL 50 MG TABLET 100 MG PO ×3 (05:01→22:27)
[2024-04-19 05:30] LABS: Basophils Percent Auto 0.1 % (0.2-2.0); Hemoglobin 10.1 g/dL (14.0-18.0); Immature Granulocytes Abs Auto 0.14 10^3/uL (0.00-0.03); Immature Granulocytes Pct Auto 0.8 % (0.0-0.5); Lymphocytes Absolute Auto 0.4 10^3/uL (1.2-3.8); Lymphocytes Percent Auto 2.4 % (20.5-60.0); Mean Corpuscular HGB Conc 33.7 g/dL (29.9-35.2); Mean Corpuscular Hemoglobin 31.4 pg (25.9-34.0); Mean Corpuscular Volume 93.2 fL (80.0-94.0); Mean Platelet Volume 8.3 fL (9.5-13.5); Monocytes Absolute Auto 0.4 10^3/uL (0.3-0.8); Monocytes Percent Auto 2.1 % (1.7-12.0); Neutrophils Absolute Auto 16.2 10^3/uL (1.4-6.5); Neutrophils Percent Auto 94.6 % (43.0-75.0); Platelet Count 285 10^3/uL (150-450); Red Blood Count 3.22 10^6/uL (4.70-6.10); Red Cell Distribution Width 13.5 % (11.0-15.0); White Blood Count 17.2 10^3/uL (4.0-11.0)
[2024-04-19 05:50] LABS: Alanine Aminotransferase 20 U/L (16-63); Albumin Globulin Ratio 0.7; Albumin Level 2.6 g/dL (3.4-5.0); Alkaline Phosphatase 62 U/L (46-116); Anion Gap 11.5; Aspartate Amino Transferase 17 U/L (15-37); BUN Creatinine Ratio 31.9; Bilirubin Total 0.4 mg/dL (0.2-1.0); Calcium 9.4 mg/dL (8.5-10.1); Carbon Dioxide 24.8 mmol/L (21.0-32.0); Chloride 97 mmol/L (98-107); Estimated GFR (African America 30 (>=60 mL/min/1.73m^2); Estimated GFR (Non-African Ame 25 (>=60 mL/min/1.73m^2); Globulin 3.8 g/dL; Glucose 127 mg/dL (74-106); Potassium 4.3 mmol/L (3.5-5.1); Sodium 129 mmol/L (136-145); Total Protein 6.4 g/dL (6.4-8.2)
--- NOTE | 2024-04-19 08:35 | XR_ITS ---
The [address] [address] Patient Name: LEIGHTON ARCINIEGA MRN: [id number] date: 1945 Sex: M Assigned Patient Location: [place] Current Patient Location: [place] Accession/Order Number: [id number] Exam Date: 04/19/2024 08:52 Report Date: 04/19/2024 09:30 At the request of: LORI MEDINA Procedure: XR chest 2V CLINICAL HISTORY: Follow up pneumonia. EXAMINATION: PA and lateral chest: 04/19/2024. COMPARISON: 04/15/2024. FINDINGS: The patient is rotated, lordotic. There are degenerative changes of thoracolumbar spine. The trachea is midline. The heart size remains enlarged. The aorta has normal contour. There is a bipolar pacemaker with electrode leads extending to right atrium, right ventricle. There are diffuse infiltrative changes involving a significant portion of the right lung and there are developing infiltrative changes in the left upper lobe, left lower lobe. There is no significant pulmonary edema or pneumothorax. XR/XR chest 2V IMPRESSION: 1. Worsening pneumonia involving the right lung and developing pneumonia in the left upper, left lower lobe. 2. Stable cardiomegaly. Electronically authenticated by: PATRICIA FRITZ Date: 04/19/2024 09:30
--- NOTE | 2024-04-19 08:39 | CM.NOTE ---
Rounds made with Dr. Dutta. Dr. Dutta reviews findings with Mr. Zamarripa. Potential discharge later today.
--- NOTE | 2024-04-19 08:40 | P.DS_ITS ---
DS: Providers Provider Date of admission: 04/16/24 00:15 Primary care physician: Jayy Dutta MD DS: Diagnosis Discharge Diagnosis (1) Acute on chronic diastolic (congestive) heart failure: (2) COPD exacerbation: (3) Hospital acquired PNA: (4) CKD (chronic kidney disease): Qualifiers: Chronic kidney disease stage: stage 3 (moderate) Chronic kidney disease stage 3 subtype: stage 3b (GFR 30-44) Qualified Code(s): N18.32 - Chronic kidney disease, stage 3b (5) CAD (coronary artery disease): Qualifiers: Coronary Disease-Associated Artery/Lesion type: [place] artery [place] vs. 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 Causing acute exacerbation of COPD-continue current treatment plan patient is slowly improving, down to 1 L nasal cannula supplemental oxygen Elevation in BNP-I feel this is more related to his kidney function, he has no peripheral edema and I do not hear rales on exam, will hold off on further diure tics-continue to monitor CKD stage IIIb. Deteriorated today, continue to monitor CAD (coronary artery disease): No chest pain A-fib: Rate controlled, paced rhythm on ECG Hypertension: Continue with current medications Diabetes: Continue with current medications Iron deficiency anemia as well as anemia of chronic kidney disease-continue to monitor daily Severe protein calorie malnutrition-diet management Admission status: Patient admitted with healthcare acquire DS: Summary Status at Discharge Overall status at discharge: patient is not back to baseline Time Spent with Patient Time attestation: Total time spent providing and/or coordinating discharge services: Time spent: greater than 30 minutes Exam Constitutional Vital Signs, click to edit/add: Last Vital Signs Temp 97 F L 04/19/24 07:45 Pulse 97 H 04/19/24 07:51 Resp 18 04/19/24 07:45 BP 140/69 04/19/24 07:45 Pulse Ox 91 L 04/19/24 07:45 O2 Del Method Nasal Cannula 04/19/24 07:45 O2 Flow Rate 1 04/19/24 04:44 DS: Data Data Completed and Pending Labs on day of discharge: Labs from last 24 hours 04/19/24 04:52 WBC 17.2 H RBC 3.22 L Hgb 10.1 L Hct 30.0 L MCV 93.2 MCH 31.4 MCHC 33.7 RDW 13.5 Plt Count 285 MPV 8.3 L Neut % (Auto) 94.6 H Lymph % (Auto) 2.4 L [place] % (Auto) 2.1 Eos % (Auto) 0.0 L Baso % (Auto) 0.1 L Neut # (Auto) 16.2 H Lymph # (Auto) 0.4 L [place] # (Auto) 0.4 Eos # (Auto) 0.0 Baso # (Auto) 0.0 Abs Immat Gran (auto) 0.14 H Imm/Tot Granulo (auto) 0.8 H Sodium 129 L Potassium 4.3 Chloride 97 L Carbon Dioxide 24.8 Anion Gap 11.5 BUN 81.0 H* Creatinine 2.54 H Est GFR ( Amer) 30 L Est GFR (Non-Af Amer) 25 L BUN/Creatinine Ratio 31.9 Glucose 127 H Calcium 9.4 Total Bilirubin 0.4 AST 17 ALT 20 Alkaline Phosphatase 62 Total Protein 6.4 Albumin 2.6 L Globulin 3.8 Albumin/Globulin Ratio 0.7 Preliminary micro results at discharge 04/15/24 21:20 Lower Respiratory Culture - Preliminary Sputum - Expectorated Sputum 04/15/24 20:04 Blood Culture Result 2 - Preliminary Blood - Right Hand NO GROWTH AT 36-48 HOURS. FINAL TO FOLLOW. 04/15/24 19:50 Blood Culture Result 1 - Preliminary Blood - Right Antecubital NO GROWTH AT 36-48 HOURS. FINAL TO FOLLOW. Discharge Plan Discharge Discharge Medications: No Action hyoscyamine sulfate 0.125 mg Tablet, Sublingual 0.125 mg sublingual QID Qty: 40 0RF mirabegron [Myrbetriq] 25 mg tablet extended release 24 hr 25 mg PO DAILY Qty: 30 11RF tolterodine 2 mg capsule,extended release 24hr 2 mg PO Q24H diclofenac sodium 1 % gel 2 g TOPICAL BID Opzelura 1.5 % cream 1 applic TOPICAL BID PRN (Reason: dermatitis) benzonatate 100 mg Capsule 200 mg PO Q8H PRN (Reason: Cough) Qty: 24 0RF levofloxacin 750 mg tablet 750 mg PO DAILY 7 Days Qty: 7 0RF fluconazole 200 mg tablet 400 mg PO Q24H carvedilol 6.25 mg tablet 6.25 mg PO Q12H glipizide 10 mg tablet 10 mg PO BID spironolactone 25 mg tablet 25 mg PO DAILY amlodipine 10 mg tablet 10 mg PO DAILY simvastatin 20 mg tablet 20 mg PO DAILY omeprazole 20 mg capsule,delayed release(DR/EC) 20 mg PO DAILY allopurinol 300 mg tablet 300 mg PO DAILY hydralazine 50 mg tablet 100 mg PO Q8H furosemide 20 mg tablet 20 mg PO Q12H Eliquis 5 mg tablet 5 mg PO Q12H cyanocobalamin (vitamin B-12) [Vitamin B-12] 1,000 mcg tablet 1,000 mcg PO DAILY aspirin [Adult Aspirin Regimen] 81 mg tablet,delayed release (DR/EC) 81 mg PO .weekly calcium citrate-vitamin D3 [Calcium Citrate + D] 315 mg-5 mcg (200 unit) tablet 1 tab PO DAILY multivitamin [Daily Multi-Vitamin] Tablet 1 tab PO DAILY insulin glargine 100 unit/mL (3 mL) insulin pen 26 unit subcut BID acetaminophen 500 mg capsule 1,000 mg PO Q6H PRN (Reason: fever or pain) terazosin 10 mg capsule 10 mg PO BEDTIME Ozempic 1 mg/dose (4 mg/3 mL) pen injector 1 mg subcut QWEEK ferrous sulfate [iron] 325 mg (65 mg iron) tablet 325 mg PO DAILY sildenafil 100 mg tablet 100 mg PO Q24H PRN (Reason: sexual activity) tacrolimus 0.1 % ointment 1 applic TOPICAL Q12H PRN (Reason: skin irritation) Print Language: Mohawk
[2024-04-19] MEDS: ALLOPURINOL 300 MG TABLET PO (08:41)
[2024-04-19] MEDS: CARVEDILOL 6.25 MG TABLET PO ×2 (08:41→22:28)
[2024-04-19] MEDS: SPIRONOLACTONE 25 MG TABLET PO (08:41)
[2024-04-19] MEDS: MULTIVITAMIN TABLET 1 TAB PO (08:41)
[2024-04-19] MEDS: ENSURE HP 237 ML LIQUID PO ×2 (08:41→22:27)
[2024-04-19] MEDS: APIXABAN 5 MG TABLET PO ×2 (08:41→22:28)
[2024-04-19] MEDS: SOLIFENACIN SUCCINATE 5 MG TABLET PO (08:42)
[2024-04-19] MEDS: FLUCONAZOLE 100 MG TABLET 200 MG PO (08:42)
[2024-04-19] MEDS: ATORVASTATIN CALCIUM 10 MG TABLET PO (08:42)
[2024-04-19] MEDS: OXYBUTYNIN CHLORIDE 5 MG TAB XL PO (08:42)
[2024-04-19] MEDS: OMEPRAZOLE 20 MG CAPSULE.DR PO (08:42)
[2024-04-19] MEDS: AMLODIPINE BESYLATE 5 MG TABLET 10 MG PO (08:42)
[2024-04-19] MEDS: FERROUS SULFATE 325 MG TABLET PO (08:42)
[2024-04-19] MEDS: INSULIN GLARGINE 300 UNIT/3 ML INSULN.PEN 26 UNIT SQ ×2 (08:46→22:31)
[2024-04-19] MEDS: INSULIN ASPART 300 UNIT/3 ML PEN SUBQ ×4 (08:46→22:30)
[2024-04-19] MEDS: LINEZOLID IN DEXTROSE 5% 600 MG/300 ML PIGGYBACK 300 MG IV (08:50)
--- NOTE | 2024-04-19 09:56 | SWNOTE1 ---
Pt lives at home with who has Dementia. Pt is independent in room. He does not wear home oxygen, but on oxygen here at hospital. SW to follow as needed.
--- NOTE | 2024-04-19 10:14 | P.PN_ITS ---
Progress Note: Subjective Subjective Interval history: Patient states his breathing is overall better, he was able to spend a short period of time yesterday on room air, his lab work abdalla shows otherwise no Exam Constitutional Vital Signs, click to edit/add: Last Vital Signs Temp 97.3 F L 04/19/24 08:41 Pulse 84 04/19/24 10:00 Resp 16 04/19/24 09:51 BP 133/73 04/19/24 08:41 Pulse Ox 93 L 04/19/24 08:41 O2 Del Method Nasal Cannula 04/19/24 08:41 O2 Flow Rate 1 04/19/24 08:41 Documenting provider has reviewed patient's vital signs: yes Common normals: no apparent distress HENMT Common normals: normocephalic Chest Common normals: inspection of chest normal Respiratory Common normals: normal respiratory effort (Some of the) Auscultation: rhonchi (Persisting rhonchi); no rales Cardio Common normals: regular rate and regular rhythm Extremity Common normals: normal to inspection, full ROM and no clubbing, cyanosis or edema Progress Note: Objective Labs Labs: Short CBC 04/19/24 Range/Units 04:52 WBC 17.2 H (4.0-11.0) 10^3/uL Hgb 10.1 L (14.0-18.0) g/dL Hct 30.0 L (42.0-54.0) % Plt Count 285 (150-450) 10^3/uL BMP 04/19/24 04:52 Sodium 129 L Potassium 4.3 Chloride 97 L Carbon Dioxide 24.8 BUN 81.0 H* Creatinine 2.54 H Glucose 127 H Calcium 9.4 Liver Function 04/19/24 Range/Units 04:52 Total Bilirubin 0.4 (0.2-1.0) mg/dL AST 17 (15-37) U/L ALT 20 (16-63) U/L Alkaline Phosphatase 62 (46-116) U/L Albumin 2.6 L (3.4-5.0) g/dL Progress Note: A&P Assessment and Plan (1) Acute on chronic diastolic (congestive) heart failure: (2) COPD exacerbation: (3) Hospital acquired PNA: (4) CKD (chronic kidney disease): Qualifiers: Chronic kidney disease stage: stage 3 (moderate) Chronic kidney disease stage 3 subtype: stage 3b (GFR 30-44) Qualified Code(s): N18.32 - Chronic kidney disease, stage 3b (5) CAD (coronary artery disease): Qualifiers: Coronary Disease-Associated Artery/Lesion type: [place] artery [place] vs. 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 Causing acute exacerbation of COPD-continue current treatment plan patient is slowly improving, down to 1 L nasal cannula supplemental oxygen Acute hypoxemia with O2 sat of 90% on 3 L, sinus tachycardia, uncontrolled hypertension due to healthcare acquired pneumonia. White blood cell count further elevated today, chest x-ray shows progression of pneumonia, will adjust antibiotics to double cover gram-negative's and in single cover anaerobes, sputum cultures pending, consulted pulmonology Elevation in BNP-persistently elevated, with some edema, will try patient on [place]on, consult to cardiology CKD stage IIIb. Stable CAD (coronary artery disease): No chest pain A-fib: Rate controlled, paced rhythm on ECG Hypertension: Continue with current medications Diabetes: Continue with current medications Iron deficiency anemia as well as anemia of chronic kidney disease-continue to monitor daily Severe protein calorie malnutrition-diet management Admission status: Patient admitted with healthcare acquired pneumonia requiring supplemental oxygen, medically necessary treatment will span 2 midnights. Urinary Catheter Management Urinary Catheter Management Urethral: Cath placed during this visit: no
--- NOTE | 2024-04-19 10:37 | CT_ITS ---
[address] [address] Patient Name: LEIGHTON ARCINIEGA MRN: [id number] date: 1945 Sex: M Assigned Patient Location: [place] Current Patient Location: [place] Accession/Order Number: [id number] Exam Date: 04/19/2024 11:15 Report Date: 04/19/2024 11:48 At the request of: COY GUIDRY Procedure: CT chest wo con EXAMINATION: CT chest wo con HISTORY: Hypoxia, worsening CXR COMPARISON: CT chest 05/25/2019 TECHNIQUE: Axial, Coronal, and Sagittal images were created without the administration of IV contrast material. Dose reduction techniques were achieved by using automated exposure control and/or adjustment of mA and/or kV according to patient size and/or use of iterative reconstruction technique. FINDINGS: LUNGS: Moderate amount of patchy and confluent opacities within mid and lower lung regions bilaterally. PLEURA: Bilateral pleural effusions, 2.0 cm in thickness on right, 1.1 cm on left. VASCULATURE: No abnormality. DAVID: Mild adenopathy. MEDIASTINUM: Mild adenopathy; likely reactive. CARDIAC:Cardiac pacer/AICD. No enlargement, pericardial thickening, or pericardial effusion. Coronary Artery calcifications: Coronary calcifications are mild. AORTA: No aneurysm or dissection. CHEST WALL: Persistent 2.6 cm nonspecific nodule within subcutaneous fat at lower lateral margin of right breast. BONES: No bone lesion or fracture. LIMITED ABDOMEN: No suspicious findings. Limited images of the upper abdomen. OTHER: Negative. CT/CT chest wo con IMPRESSION: 1. Moderate amount of bilateral infiltrates suggestive of pneumonia. 2. Small to moderate bilateral pleural effusions. Electronically authenticated by: JOE DU Date: 04/19/2024 11:48
[2024-04-19] MEDS: LEVOFLOXACIN IN DEXTROSE 5 % 750 MG/150 ML PREMIX 100 MG IV (11:29)
[2024-04-19] MEDS: BUMETANIDE 10 MG in 0.9 % SODIUM CHLORIDE 160 ML IV (11:29)
[2024-04-19] MEDS: PREDNISONE 20 MG TABLET 40 MG PO (11:45)
[2024-04-19] MEDS: CEFTAZIDIME 2,000 MG in 0.9 % SODIUM CHLORIDE 100 ML 200 MG IV (13:16)
--- NOTE | 2024-04-19 13:26 | P.CACN_ITS ---
<Statement entered by JOHANNA DEGROOT - 04/20/24 17:48> This documentation has been reviewed and approved. History of Present Illness History of Present Illness Consult date: 04/19/24 Requesting physician: Jayy Dutta Consult reason: congestive heart failure Chief complaint: sob CHF Narrative: Patient is a 78 y/o M with known medical hx of HFpEF, permanent pacemaker placement, COPD, a.fib on Eliquis, CKD, HTN, DM who presented to [facility] with c/o worsening SOB. He had recently be admitted to [facility] and treated for PNA. He had been feeling better until the day of this admission where he noted his SOB worsened and he had c/o chills. This admission he was diagnosed with PNA, ARA on CKD, and COPD exacerbation. Cardiology has been consulted to assist with heart failure management. His NTproBNP has persistently elevated and further elevated from 19,000 -> 9,000 -> 26,000. His WBC had intially improved and has since worsened (11.9 -> 9.9 ->7 -> 16.8 -> 17.2). CXR this AM showed evidence of worsening PNA. CT Chest today confirmed these findings along with small to moderate bilateral pleural effusions. Hospitalist adjusted his antibiotics and consulted pulmonary team to help with PNA management. Bumex gtt has been started by hospitalist for fluid management. Patient seen and examined at bedside. He states he overall doesn't feel worse. He has some SANTANA but this feels improved from when he was admitted. He notes orthopnea but this has been present for some time. He has a cough that is intermittently dry and productive. He denies CP, palpitations, dizziness, LE edema. He remains on supplemental O2 at 1lpm via NC. Review of Systems ROS Status of ROS 10 or more systems reviewed and unremark able except as noted in history and below Cardiovascular Reports: shortness of breath with exertion and shortness of breath when lying down Respiratory Reports: cough [facility] Medical History (Updated 04/16/24 @ 12:07 by Shaikh Sugey MD) Severe sepsis ?A41.9 - Sepsis, unspecified organism (ICD-10) ?R65.20 - Severe sepsis without septic shock (ICD-10) COPD exacerbation ?J44.1 - Chronic obstructive pulmonary disease with (acute) exacerbation (IC D-10) Acute exacerbation of chronic heart failure ?I50.9 - Heart failure, unspecified (ICD-10) Acute hypoxemic respiratory failure ?J96.01 - Acute respiratory failure with hypoxia (ICD-10) Pneumonia ?J18.9 - Pneumonia, unspecified organism (ICD-10) Acute kidney injury ?N17.9 - Acute kidney failure, unspecified (ICD-10) Bladder spasm ?N32.89 - Other specified disorders of bladder (ICD-10) Urinary tract infection ?N39.0 - Urinary tract infection, site not specified (ICD-10) Urinary tract infection ?N39.0 - Urinary tract infection, site not specified (ICD-10) Failure of outpatient treatment ?Z78.9 - Other specified health status (ICD-10) Urinary tract infection ?N39.0 - Urinary tract infection, site not specified (ICD-10) Skin cancer ?C44.90 - Unspecified malignant neoplasm of skin, unspecified (ICD-10) Myocardial infarction ?I21.9 - Acute myocardial infarction, unspecified (ICD-10) Pacemaker ?Z95.0 - Presence of cardiac pacemaker (ICD-10) CKD (chronic kidney disease) ?N18.9 - Chronic kidney disease, unspecified (ICD-10) CAD (coronary artery disease) ?I25.10 - Atherosclerotic heart disease of [place] coronary artery without angina pectoris (ICD-10) A-fib ?I48.91 - Unspecified atrial fibrillation (ICD-10) Erectile dysfunction ?N52.9 - Male erectile dysfunction, unspecified (ICD-10) UTI (urinary tract infection) ?N39.0 - Urinary tract infection, site not specified (ICD-10) GERD (gastroesophageal reflux disease) ?K21.9 - Gastro-esophageal reflux disease without esophagitis (ICD-10) Hypertension ?I10 - Essential (primary) hypertension (ICD-10) Diabetes ?E11.9 - Type 2 diabetes mellitus without complications (ICD-10) Surgical History History of arthroscopic knee surgery ?Z98.890 - Other specified postprocedural states (ICD-10) Hx of tonsillectomy ?Z90.89 - Acquired absence of other organs (ICD-10) Family History Mother Family history of CHF (congestive heart failure) Family history of myocardial infarction Family history of hypertension Family history of diabetes mellitus Family history of COPD (chronic obstructive pulmonary disease) Grandmother Family history of CHF (congestive heart failure) Brother Family history of CHF (congestive heart failure) Family history of myocardial infarction Family history of hypertension Family history of COPD (chronic obstructive pulmonary disease) Father Kidney failure Social History Within the past year, how often did you have a drink containing alcohol: never Score interpretation: A score less than 4 is consistent with normal alcohol consumption. Smoking status: Former smoker Non-prescribed substance use: denies use Known occupational exposures/hazards: No Highest level of school completed/degree received: some college, no degree Do you want help with school or training: No Little interest or pleasure in doing things: not at all Feeling down, depressed, or hopeless: not at all Gender Identity: male Meds Home Medications and Allergies Home Medications ?Medication ?Instructions ?Recorded ?Confirmed ?Type acetaminophen 500 mg capsule 1,000 mg PO Q6H PRN fever or pain 02/26/24 04/15/24 History allopurinol 300 mg tablet 300 mg PO DAILY 02/26/24 04/15/24 History amlodipine 10 mg tablet 10 mg PO DAILY 02/26/24 04/15/24 History apixaban 5 mg tablet (Eliquis) 5 mg PO Q12H 02/26/24 04/15/24 History aspirin 81 mg tablet,delayed 81 mg PO .weekly 02/26/24 04/15/24 History release (Adult Aspirin Regimen) calcium 315 mg (as 1 tab PO DAILY 02/26/24 04/15/24 History citrate)-vitamin D3 5 mcg (200 unit) tablet (Calcium Citrate + D) carvedilol 6.25 mg tablet 6.25 mg PO Q12H 02/26/24 04/15/24 History cyanocobalamin (vitamin B-12) 1,000 mcg PO DAILY 02/26/24 04/15/24 History 1,000 mcg tablet (Vitamin B-12) ferrous sulfate 325 mg (65 mg 325 mg PO DAILY 02/26/24 04/15/24 History iron) tablet (iron) furosemide 20 mg tablet 20 mg PO Q12H 02/26/24 04/15/24 History glipizide 10 mg tablet 10 mg PO BID 02/26/24 04/15/24 History hydralazine 50 mg tablet 100 mg PO Q8H 02/26/24 04/15/24 History insulin glargine 100 unit/mL (3 26 unit subcut BID 02/26/24 04/15/24 History mL) subcutaneous pen multivitamin (Daily Multi-Vitamin 1 tab PO DAILY 02/26/24 04/15/24 History tablet) omeprazole 20 mg capsule,delayed 20 mg PO DAILY 02/26/24 04/15/24 History release semaglutide 1 mg/dose (4 mg/3 mL) 1 mg subcut QWEEK 02/26/24 04/15/24 History subcutaneous pen injector (Ozempic) sildenafil 100 mg tablet 100 mg PO Q24H PRN sexual activity 02/26/24 04/15/24 History simvastatin 20 mg tablet 20 mg PO DAILY 02/26/24 04/15/24 History spironolactone 25 mg tablet 25 mg PO DAILY 02/26/24 04/15/24 History tacrolimus 0.1 % topical ointment 1 applic topical Q12H PRN skin 02/26/24 04/15/24 History irritation terazosin 10 mg capsule 10 mg PO BEDTIME 02/26/24 04/15/24 History hyoscyamine sulfate 0.125 mg 0.125 mg sublingual QID #40 tabs 03/30/24 04/15/24 Rx sublingual tablet mirabegron 25 mg tablet,extended 25 mg PO DAILY #30 tabs 03/30/24 04/15/24 Rx release 24 hr (Myrbetriq) diclofenac sodium 1 % topical gel 2 g topical BID 04/05/24 04/15/24 History ruxolitinib 1.5 % topical cream 1 applic topical BID PRN dermatitis 04/05/24 04/15/24 History (Opzelura) tolterodine 2 mg capsule,extended 2 mg PO Q24H 04/05/24 04/15/24 History release 24 hr benzonatate 100 mg capsule 200 mg (2 x 100 mg) PO Q8H PRN 04/08/24 04/15/24 Rx Cough #24 caps levofloxacin 750 mg tablet 750 mg PO DAILY 7 days #7 tabs 04/08/24 04/15/24 Rx fluconazole 200 mg tablet 400 mg PO Q24H 04/16/24 04/16/24 History Allergies Allergy/AdvReac Type Severity Reaction Status Date / Time fosinopril (From Monopril) Allergy Severe shortness Verified 04/05/24 20:09 of breath metoprolol Allergy Severe shortness Verified 04/05/24 20:09 of breath strawberry Allergy Severe Rash Verified 04/05/24 20:09 Exam Constitutional Vital Signs, click to edit/add: Last Vital Signs Temp 97.6 F 04/19/24 11:15 Pulse 79 04/19/24 11:54 Resp 18 04/19/24 11:48 BP 133/69 04/19/24 11:15 Pulse Ox 93 L 04/19/24 11:50 O2 Del Method Nasal Cannula 04/19/24 11:50 O2 Flow Rate 1 04/19/24 11:50 Common normals: no apparent distress and oriented x3 General appearance: cooperative and comfortable HENTX Common normals: normocephalic and head/scalp atraumatic Eye Common normals: EOMs intact bilaterally and conjunctivae normal Chest Common normals: inspection of chest normal Respiratory Common normals: normal respiratory effort Auscultation: rales bilateral Cardio Common normals: regular rate, S1 normal heart sound and S2 normal heart sound Rhythm: abnormal rhythm irregularly irregular GI Common normals: Normal to inspection, nondistended, normoactive bowel sounds present Extremity Common normals: full ROM General: edema (+2 BLE edema - compression stockings in place) Neuro Common normals: oriented x3 and moves all extremities Results Labs and Meds Lab results: Cardiac Enzymes 04/19/24 Range/Units 04:52 AST 17 (15-37) U/L CBC 04/19/24 Range/Units 04:52 WBC 17.2 H (4.0-11.0) 10^3/uL RBC 3.22 L (4.70-6.10) 10^6/uL Hgb 10.1 L (14.0-18.0) g/dL Hct 30.0 L (42.0-54.0) % Plt Count 285 (150-450) 10^3/uL Neut # (Auto) 16.2 H (1.4-6.5) 10^3/uL Lymph # (Auto) 0.4 L (1.2-3.8) 10^3/uL [place] # (Auto) 0.4 (0.3-0.8) 10^3/uL Eos # (Auto) 0.0 (0.0-0.7) 10^3/uL Baso # (Auto) 0.0 (0.0-0.1) 10^3/uL Comprehensive Metabolic Panel 04/19/24 Range/Units 04:52 Sodium 129 L (136-145) mmol/L Potassium 4.3 (3.5-5.1) mmol/L Chloride 97 L (98-107) mmol/L Carbon Dioxide 24.8 (21.0-32.0) mmol/L BUN 81.0 H* (7.0-18.0) mg/dL Creatinine 2.54 H (0.70-1.30) mg/dL Glucose 127 H (74-106) mg/dL Calcium 9.4 (8.5-10.1) mg/dL AST 17 (15-37) U/L ALT 20 (16-63) U/L Alkaline Phosphatase 62 (46-116) U/L Total Protein 6.4 (6.4-8.2) g/dL Albumin 2.6 L (3.4-5.0) g/dL Intake and Output 04/18/24 04/19/24 04/19/24 23:59 07:59 15:59 Intake Total 900 / 2855 550 / 2855 750 / 750 Output Total 600 / 1525 400 / 1525 700 / 700 Balance 300 / 1330 150 / 1330 50 / 50 Intake: Oral 550 / 1905 500 / 1905 IV 350 / 950 50 / 950 750 / 750 0.9 % Sodium Chloride 250 ml @ 250 / 250 10 mls/hr IV .Q24H PRN Rx#: [id number] Levofloxacin in Dextrose 5 % 150 / 150 750 mg In 150 ml @ 100 mls/hr IV Q48H [facility] Rx#:[id number] Linezolid in Dextrose 5% 600 mg 300 / 600 300 / 300 In 300 ml @ 300 mls/hr IV Q12H [facility] Rx#:[id number] Piperacillin Sodium/Tazobactam 50 / 100 50 / 100 50 / 50 3.375 gm In 0.9 % Sodium Chloride 50 ml @ 12.5 mls/hr IV Q8H [facility] Rx#:[id number] Output: Urine 400 / 400 Urine Amount (Catheter) 600 / 1125 700 / 700 Urethral 600 / 1125 700 / 700 Imaging and Cardiology Echo: report reviewed ECG results: image reviewed Assessment and Plan Assessment and Plan (1) Acute on chronic diastolic (congestive) heart failure: (2) COPD exacerbation: (3) Hospital acquired PNA: (4) CKD (chronic kidney disease): Qualifiers: Chronic kidney disease stage: stage 3 (moderate) Chronic kidney disease stage 3 subtype: stage 3b (GFR 30-44) Qualified Code(s): N18.32 - Chronic kidney disease, stage 3b (5) CAD (coronary artery disease): Qualifiers: Coronary Disease-Associated Artery/Lesion type: [place] artery [place] vs. 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 Decompensation likely contributed to PNA. -Last ECHO 04/06/2024 noted RVSP at 48, low normal EF of 50%, grade II DD, and IVD dilated at 2.6 cm. -Primary team started bumex gtt at 0.5mg/hr. Recommend monitoring BMP q12 hrs while on gtt. De-escalate IV bumex pending BMP results as pt was on lasix 20mg BID at home. Can always obtain follow-up limited ECHO if need to follow up on right sided pressures. -GDMT: pt was taking aldactone 25mg daily at home - resume when renal function back to baseline. #PNA -treatment per primary and pulmonary teams #ARA on CKD -Continue to closely monitor renal function. Pt notes baseline Cr is around 1.8. 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 #HTN -Controlled, continue current medications. Follow-up with primary endocrinology physician in 1 week after discharge. Discussed plan with patient and hospitalist. Please call with any further questions or concerns. Joann Neville APRN-[employer] [facility] Cardiovascular Medicine
[2024-04-19 17:19] LABS: Anion Gap 12.7; BUN Creatinine Ratio 33.5; Carbon Dioxide 24.9 mmol/L (21.0-32.0); Chloride 97 mmol/L (98-107); Estimated GFR (African America 29 (>=60 mL/min/1.73m^2); Estimated GFR (Non-African Ame 24 (>=60 mL/min/1.73m^2); Glucose 213 mg/dL (74-106); Potassium 4.6 mmol/L (3.5-5.1); Sodium 130 mmol/L (136-145)
--- NOTE | 2024-04-19 18:24 | PM.PLCN ---
History of Present Illness History of Present Illness Consult date: 04/19/24 Chief complaint: sob CHF Narrative: 78yo male presents with worsening chest imaging. Patient was discharged from [facility] on 04/08/2024 with pneumonia - no identified agent. He stated he was at home but couldn't breathe well and returned to [facility] on 04/15/2024. He was initially on Zosyn + Vanco, but then changed to Zyvox. Repeat CXR suggested worsening infiltrates and antibiotics were then changed to Levaquin, Fortaz, and Clindamycin. Chest CT ordered which showed multifocal infiltrates and small bilateral pleural effusions. Patient states he is not feeling any worse today, but is not having as productive sputum as before - he was using up a whole tissue box on Wednesday, but that has tapered off. It is yellow intermixed with mild amount of blood. He is using PEP as instructed. History of tobacco abuse. Review of Systems ROS Status of ROS 10 or more systems reviewed and unremarkable except as noted in history and below Constitutional Denies: fever, chills or night sweats [facility] Medical History (Updated 04/19/24 @ 18:34 by Rick Roy DO) Severe sepsis ?A41.9 - Sepsis, unspecified organism (ICD-10) ?R65.20 - Severe sepsis without septic shock (ICD-10) COPD exacerbation ?J44.1 - Chronic obstructive pulmonary disease with (acute) exacerbation (ICD-10) Acute exacerbation of chronic heart failure ?I50.9 - Heart failure, unspecified (ICD-10) Acute hypoxemic respiratory failure ?J96.01 - Acute respiratory failure with hypoxia (ICD-10) Acute kidney injury ?N17.9 - Acute kidney failure, unspecified (ICD-10) Bladder spasm ?N32.89 - Other specified disorders of bladder (ICD-10) Urinary tract infection ?N39.0 - Urinary tract infection, site not specified (ICD-10) Urinary tract infection ?N39.0 - Urinary tract infection, site not specified (ICD-10) Failure of outpatient treatment ?Z78.9 - Other specified health status (ICD-10) Urinary tract infection ?N39.0 - Urinary tract infection, site not specified (ICD-10) Skin cancer ?C44.90 - Unspecified malignant neoplasm of skin, unspecified (ICD-10) Myocardial infarction ?I21.9 - Acute myocardial infarction, unspecified (ICD-10) Pacemaker ?Z95.0 - Presence of cardiac pacemaker (ICD-10) CKD (chronic kidney disease) ?N18.9 - Chronic kidney disease, unspecified (ICD-10) CAD (coronary artery disease) ?I25.10 - Atherosclerotic heart disease of [place] coronary artery without angina pectoris (ICD-10) A-fib ?I48.91 - Unspecified atrial fibrillation (ICD-10) Erectile dysfunction ?N52.9 - Male erectile dysfunction, unspecified (ICD-10) UTI (urinary tract infection) ?N39.0 - Urinary tract infection, site not specified (ICD-10) GERD (gastroesophageal reflux disease) ?K21.9 - Gastro-esophageal reflux disease without esophagitis (ICD-10) Hypertension ?I10 - Essential (primary) hypertension (ICD-10) Diabetes ?E11.9 - Type 2 diabetes mellitus without complications (ICD-10) Surgical History History of arthroscopic knee surgery ?Z98.890 - Other specified postprocedural states (ICD-10) Hx of tonsillectomy ?Z90.89 - Acquired absence of other organs (ICD-10) Family History Mother Family history of CHF (congestive heart failure) Family history of myocardial infarction Family history of hypertension Family history of diabetes mellitus Family history of COPD (chronic obstructive pulmonary disease) Grandmother Family history of CHF (congestive heart failure) Brother Family history of CHF (congestive heart failure) Family history of myocardial infarction Family history of hypertension Family history of COPD (chronic obstructive pulmonary disease) Father Kidney failure Social History Within the past year, how often did you have a drink containing alcohol: never Score interpretation: A score less than 4 is consistent with normal alcohol consumption. Smoking status: Former smoker Non-prescribed substance use: denies use Known occupational exposures/hazards: No Highest level of school completed/degree received: some college, no degree Do you want help with school or training: No Little interest or pleasure in doing things: not at all Feeling down, depressed, or hopeless: not at all Gender Identity: male Meds Home Medications and Allergies Home Medications ?Medication ?Instructions ?Recorded ?Confirmed ?Type acetaminophen 500 mg capsule 1,000 mg PO Q6H PRN fever or pain 02/26/24 04/15/24 History allopurinol 300 mg tablet 300 mg PO DAILY 02/26/24 04/15/24 History amlodipine 10 mg tablet 10 mg PO DAILY 02/26/24 04/15/24 History apixaban 5 mg tablet (Eliquis) 5 mg PO Q12H 02/26/24 04/15/24 History aspirin 81 mg tablet,delayed 81 mg PO .weekly 02/26/24 04/15/24 History release (Adult Aspirin Regimen) calcium 315 mg (as 1 tab PO DAILY 02/26/24 04/15/24 History citrate)-vitamin D3 5 mcg (200 unit) tablet (Calcium Citrate + D) carvedilol 6.25 mg tablet 6.25 mg PO Q12H 02/26/24 04/15/24 History cyanocobalamin (vitamin B-12) 1,000 mcg PO DAILY 02/26/24 04/15/24 History 1,000 mcg tablet (Vitamin B-12) ferrous sulfate 325 mg (65 mg 325 mg PO DAILY 02/26/24 04/15/24 History iron) tablet (iron) furosemide 20 mg tablet 20 mg PO Q12H 02/26/24 04/15/24 History glipizide 10 mg tablet 10 mg PO BID 02/26/24 04/15/24 History hydralazine 50 mg tablet 100 mg PO Q8H 02/26/24 04/15/24 History insulin glargine 100 unit/mL (3 26 unit subcut BID 02/26/24 04/15/24 History mL) subcutaneous pen multivitamin (Daily Multi-Vitamin 1 tab PO DAILY 02/26/24 04/15/24 History tablet) omeprazole 20 mg capsule,delayed 20 mg PO DAILY 02/26/24 04/15/24 History release semaglutide 1 mg/dose (4 mg/3 mL) 1 mg subcut QWEEK 02/26/24 04/15/24 History subcutaneous pen injector (Ozempic) sildenafil 100 mg tablet 100 mg PO Q24H PRN sexual activity 02/26/24 04/15/24 History simvastatin 20 mg tablet 20 mg PO DAILY 02/26/24 04/15/24 History spironolactone 25 mg tablet 25 mg PO DAILY 02/26/24 04/15/24 History tacrolimus 0.1 % topical ointment 1 applic topical Q12H PRN skin 02/26/24 04/15/24 History irritation terazosin 10 mg capsule 10 mg PO BEDTIME 02/26/24 04/15/24 History hyoscyamine sulfate 0.125 mg 0.125 mg sublingual QID #40 tabs 03/30/24 04/15/24 Rx sublingual tablet mirabegron 25 mg tablet,extended 25 mg PO DAILY #30 tabs 03/30/24 04/15/24 Rx release 24 hr (Myrbetriq) diclofenac sodium 1 % topical gel 2 g topical BID 04/05/24 04/15/24 History ruxolitinib 1.5 % topical cream 1 applic topical BID PRN dermatitis 04/05/24 04/15/24 History (Opzelura) tolterodine 2 mg capsule,extended 2 mg PO Q24H 04/05/24 04/15/24 History release 24 hr benzonatate 100 mg capsule 200 mg (2 x 100 mg) PO Q8H PRN 04/08/24 04/15/24 Rx Cough #24 caps levofloxacin 750 mg tablet 750 mg PO DAILY 7 days #7 tabs 04/08/24 04/15/24 Rx fluconazole 200 mg tablet 400 mg PO Q24H 04/16/24 04/16/24 History Allergies Allergy/AdvReac Type Severity Reaction Status Date / Time fosinopril (From Monopril) Allergy Severe shortness Verified 04/05/24 20:09 of breath metoprolol Allergy Severe shortness Verified 04/05/24 20:09 of breath strawberry Allergy Severe Rash Verified 04/05/24 20:09 Exam Constitutional Vital Signs, click to edit/add: Last Vital Signs Temp 97.4 F L 04/19/24 15:42 Pulse 97 H 04/19/24 17:52 Resp 18 04/19/24 16:46 BP 141/69 04/19/24 15:42 Pulse Ox 93 L 04/19/24 16:46 O2 Del Method Nasal Cannula 04/19/24 16:46 O2 Flow Rate 1 04/19/24 16:46 Common normals: no apparent distress HENMT Other: Wearing nasal cannula Respiratory Other: Diffuse fine crackles, no wheezes Cardio Other: Irregularly irregular, rate controlled Other: [place] Extremity Other: Compression stockings, 1+ BLE edema just proximal to stockings Neuro Other: No fasciculations Psych Other: Calm, appropriate demeanor Results Laboratory Findings Abnormal lab findings: Abnormal Labs 04/15/24 04/16/24 04/17/24 19:50 05:59 05:23 WBC 11.9 H RBC 3.46 L 2.94 L 3.03 L Hgb 11.1 L 9.4 L 9.8 L Hct 33.2 L 28.2 L 28.9 L MCV 96.0 H 95.9 H 95.4 H MPV 8.3 L 8.2 L 8.5 L Neut % (Auto) 77.8 H 93.6 H Lymph % (Auto) 11.4 L 14.0 L 5.0 L [place] % (Auto) 1.0 L Eos % (Auto) 0.0 L Baso % (Auto) 0.0 L Neut # (Auto) 9.3 H 7.3 H Lymph # (Auto) 0.4 L [place] # (Auto) 1.0 H 1.0 H 0.1 L Abs Immat Gran (auto) 0.08 H 0.05 H Seg Neuts % (Manual) Lymphocytes % (Manual) Monocytes % (Manual) Eosinophils % (Manual) Basophils % (Manual) Imm/Tot Granulo (auto) 0.7 H Neutrophils # (Manual) Lymphocytes # (Manual) Monocytes # (Manual) Sodium 135 L 134 L Chloride BUN 36.0 H 33.0 H 46.0 H Creatinine 2.02 H 1.89 H 2.34 H Est GFR ( Amer) 39 L 42 L 33 L Est GFR (Non-Af Amer) 32 L 35 L 27 L Glucose 153 H 337 H AST 14 L 10 L 11 L ALT 14 L 15 L NT-Pro-B Natriuret Pep 20088.0 H* 12917.0 H* Total Protein 5.7 L 6.0 L Albumin 2.5 L 2.1 L 2.2 L POC Glucose 04/17/24 04/18/24 04/19/24 12:39 05:14 04:52 WBC 16.8 H 17.2 H RBC 2.97 L 3.22 L Hgb 9.5 L 10.1 L Hct 28.0 L 30.0 L MCV 94.3 H MPV 8.5 L 8.3 L Neut % (Auto) 94.6 H Lymph % (Auto) 2.4 L [place] % (Auto) Eos % (Auto) 0.0 L Baso % (Auto) 0.1 L Neut # (Auto) 16.2 H Lymph # (Auto) 0.4 L [place] # (Auto) Abs Immat Gran (auto) 0.14 H Seg Neuts % (Manual) 98.0 H Lymphocytes % (Manual) 1.0 L Monocytes % (Manual) 1.0 L Eosinophils % (Manual) 0.0 L Basophils % (Manual) 0.0 L Imm/Tot Granulo (auto) 0.8 H Neutrophils # (Manual) 16.46 H Lymphocytes # (Manual) 0.16 L Monocytes # (Manual) 0.16 L Sodium 131 L 129 L Chloride 97 L BUN 60.0 H 81.0 H* Creatinine 2.57 H 2.54 H Est GFR ( Amer) 30 L 30 L Est GFR (Non-Af Amer) 24 L 25 L Glucose 227 H 127 H AST 12 L ALT NT-Pro-B Natriuret Pep 59440.0 H* Total Protein 6.0 L Albumin 2.2 L 2.6 L POC Glucose 300 H 04/19/24 17:00 WBC RBC Hgb Hct MCV MPV Neut % (Auto) Lymph % (Auto) [place] % (Auto) Eos % (Auto) Baso % (Auto) Neut # (Auto) Lymph # (Auto) [place] # (Auto) Abs Immat Gran (auto) Seg Neuts % (Manual) Lymphocytes % (Manual) Monocytes % (Manual) Eosinophils % (Manual) Basophils % (Manual) Imm/Tot Granulo (auto) Neutrophils # (Manual) Lymphocytes # (Manual) Monocytes # (Manual) Sodium 130 L Chloride 97 L BUN 88.0 H* Creatinine 2.63 H Est GFR ( Amer) 29 L Est GFR (Non-Af Amer) 24 L Glucose 213 H AST ALT NT-Pro-B Natriuret Pep Total Protein Albumin POC Glucose Assessment and Plan Assessment and Plan (1) Pneumonia: Assessment and Plan: 1. Pneumonia - no identified agent. Etiology unclear. Chest CT today shows multifocal infiltrates. He denies any aspiration. Sputum just obtained today, so results are pending. Increasing leukocytosis, but suspect due to steroids. No documented fevers or elevated temperatures this admission. May have a degree of dependent pulmonary edema. ? interstitial lung disease - will need further w/up outpatient. Improve pulmonary toilet - continue PEP, add hypertonic saline nebs. 2. Pulmonary fibrosis. Present on chest CT 08/29/2019, mild bibasilar fibrosis. Appears mildly progressed on chest CT findings today in my opinion. Recommend outpatient w/up - labs can potentially be affected by steroids. 3. Acute on chronic diastolic congestive heart failure. On Bumex gtt. Cardiology managing. 4. Bilateral pleural effusions. Secondary to #3 most likely. Too small for thoracentesis. 5. Acute hypoxic respiratory failure. On supplemental O2. 6. History of tobacco abuse. Qualifiers: Pneumonia type: due to unspecified organism Laterality: bilateral Lung location: lower lobe of lung Qualified Code(s): J18.9 - Pneumonia, unspecified organism
[2024-04-19] MEDS: CLINDAMYCIN PHOSPHATE/D5W 600 MG/50 ML PREMIX 100 MG IV ×2 (19:46→23:53)
[2024-04-19] MEDS: TERAZOSIN HCL 5 MG CAPSULE 10 MG PO (22:28)
[2024-04-19] MEDS: SODIUM CHLORIDE 3% INHALATION 15 ML NEB 3 ML IH (22:56)
[2024-04-20] VITALS (27 sets, daily range): BP systolic 118–146; BP diastolic 57–71; PULSE 68–97; TEMP 36.4–36.7; O2SAT 87–94
--- NOTE | 2024-04-20 00:22 | PC.NURSE ---
Patient states I fell on my butt. I did not hit my head.
[2024-04-20] MEDS: IPRATROPIUM/ALBUTEROL SULFATE 3 ML AMPUL.NEB IH ×4 (04:36→23:01)
[2024-04-20] MEDS: SODIUM CHLORIDE 3% INHALATION 15 ML NEB 3 ML IH ×3 (04:36→23:01)
[2024-04-20] MEDS: HYOSCYAMINE SULFATE 0.125 MG TAB.SUBL SL ×4 (05:38→21:45)
[2024-04-20] MEDS: CLINDAMYCIN PHOSPHATE/D5W 600 MG/50 ML PREMIX 100 MG IV ×4 (05:38→23:23)
[2024-04-20] MEDS: HYDRALAZINE HCL 50 MG TABLET 100 MG PO ×3 (05:39→21:45)
--- NOTE | 2024-04-20 06:05 | PM.PLPN ---
Progress Note: A&P Assessment and Plan (1) Pneumonia: Assessment and Plan: 1. Pneumonia - no identified agent. Leukocytosis improved. Denies aspiration, frequent/recurrent respiratory infections. Sputum pending. Continue antibiotics. Pulmonary toilet - PEP, hypertonic saline. 2. Pulmonary fibrosis. Needs outpatient F/U. 3. Acute on chronic diastolic congestive heart failure. Cardiology following. 4. Bilateral pleural effusions. Secondary to #3. No thoracentesis planned. 5. Acute hypoxic respiratory failure. On supplemental O2. 6. History of tobacco abuse. Qualifiers: Laterality: bilateral Lung location: lower lobe of lung Pneumonia type: due to unspecified organism Qualified Code(s): J18.9 - Pneumonia, unspecified organism Subjective Subjective Interval history: Patient was started on hypertonic saline nebs last evening. He feels it, along with PEP, helped to mobilize his secretions a little better. He does not feel any worse. No new pulmonary complaints. Exam Constitutional Vital Signs, click to edit/add: Last Vital Signs Temp 97.6 F 04/20/24 03:57 Pulse 82 04/20/24 04:36 Resp 18 04/20/24 04:36 BP 138/61 04/20/24 03:57 Pulse Ox 94 L 04/20/24 04:36 O2 Del Method Home BIPAP / CPAP 04/20/24 04:36 O2 Flow Rate 1 04/19/24 23:57 Common normals: no apparent distress HENMT Other: Wearing his PAP mask Respiratory Other: Breath sounds similar to yesterday, diffuse crackles posteriorly, no wheezes. Cardio Other: Irregularly irregular, rate controlled Other: [place] Extremity Other: Compression stockings, 1+ BLE edema just proximal to stockings Neuro Other: No fasciculations Psych Other: Calm, appropriate demeanor
[2024-04-20 06:30] LABS: Basophils Percent Auto 0.1 % (0.2-2.0); Hematocrit 26.7 % (42.0-54.0); Hemoglobin 9.1 g/dL (14.0-18.0); Immature Granulocytes Abs Auto 0.08 10^3/uL (0.00-0.03); Immature Granulocytes Pct Auto 0.6 % (0.0-0.5); Lymphocytes Absolute Auto 0.4 10^3/uL (1.2-3.8); Lymphocytes Percent Auto 2.7 % (20.5-60.0); Mean Corpuscular HGB Conc 34.1 g/dL (29.9-35.2); Mean Corpuscular Hemoglobin 31.7 pg (25.9-34.0); Mean Platelet Volume 8.3 fL (9.5-13.5); Monocytes Absolute Auto 0.6 10^3/uL (0.3-0.8); Monocytes Percent Auto 4.6 % (1.7-12.0); Neutrophils Absolute Auto 11.9 10^3/uL (1.4-6.5); Platelet Count 274 10^3/uL (150-450); Red Blood Count 2.87 10^6/uL (4.70-6.10); Red Cell Distribution Width 13.5 % (11.0-15.0); White Blood Count 12.9 10^3/uL (4.0-11.0)
[2024-04-20 07:08] LABS: Alanine Aminotransferase 19 U/L (16-63); Albumin Globulin Ratio 0.7; Albumin Level 2.3 g/dL (3.4-5.0); Alkaline Phosphatase 48 U/L (46-116); Anion Gap 11.9; Aspartate Amino Transferase 17 U/L (15-37); BUN Creatinine Ratio 34.3; Bilirubin Total 0.4 mg/dL (0.2-1.0); Calcium 8.8 mg/dL (8.5-10.1); Carbon Dioxide 24.4 mmol/L (21.0-32.0); Chloride 98 mmol/L (98-107); Estimated GFR (African America 27 (>=60 mL/min/1.73m^2); Estimated GFR (Non-African Ame 22 (>=60 mL/min/1.73m^2); Globulin 3.3 g/dL; Glucose 164 mg/dL (74-106); Potassium 4.3 mmol/L (3.5-5.1); Sodium 130 mmol/L (136-145); Total Protein 5.6 g/dL (6.4-8.2)
[2024-04-20] MEDS: INSULIN ASPART 300 UNIT/3 ML PEN SUBQ ×3 (07:45→21:45)
--- NOTE | 2024-04-20 08:00 | P.PN_ITS ---
Progress Note: Subjective Subjective Interval history: Patient does not have any more shortness of breath with activity over the last 24 hours but he does also state that his coughing is less today Exam Constitutional Vital Signs, click to edit/add: Last Vital Signs Temp 97.7 F 04/20/24 19:39 Pulse 84 04/20/24 19:52 Resp 18 04/20/24 19:39 BP 146/57 H 04/20/24 19:39 Pulse Ox 92 L 04/20/24 19:39 O2 Del Method Nasal Cannula 04/20/24 19:39 O2 Flow Rate 2 04/20/24 19:39 Documenting provider has reviewed patient's vital signs: yes Common normals: no apparent distress HENMT Common normals: normocephalic Chest Common normals: inspection of chest normal Respiratory Common normals: normal respiratory effort (Some of the) Auscultation: rhonchi (May be somewhat better air exchange but just had breathing treatment); no rales Cardio Common normals: regular rate and regular rhythm Extremity Common normals: normal to inspection, full ROM and no clubbing, cyanosis or edema Progress Note: Objective Labs Labs: Short CBC 04/20/24 Range/Units 05:34 WBC 12.9 H (4.0-11.0) 10^3/uL Hgb 9.1 L (14.0-18.0) g/dL Hct 26.7 L (42.0-54.0) % Plt Count 274 (150-450) 10^3/uL BMP 04/20/24 05:34 Sodium 130 L Potassium 4.3 Chloride 98 Carbon Dioxide 24.4 BUN 96.0 H* Creatinine 2.80 H Glucose 164 H Calcium 8.8 Liver Function 04/20/24 Range/Units 05:34 Total Bilirubin 0.4 (0.2-1.0) mg/dL AST 17 (15-37) U/L ALT 19 (16-63) U/L Alkaline Phosphatase 48 (46-116) U/L Albumin 2.3 L (3.4-5.0) g/dL Progress Note: A&P Assessment and Plan (1) Pneumonia: Qualifiers: Laterality: bilateral Lung location: lower lobe of lung Pneumonia type: due to unspecified organism Qualified Code(s): J18.9 - Pneumonia, unspecified organism (2) Acute on chronic diastolic (congestive) heart failure: (3) COPD exacerbation: (4) Hospital acquired PNA: (5) CKD (chronic kidney disease): Qualifiers: Chronic kidney disease stage: stage 3 (moderate) Chronic kidney disease stage 3 subtype: stage 3b (GFR 30-44) Qualified Code(s): N18.32 - Chronic kidne y disease, stage 3b (6) CAD (coronary artery disease): Qualifiers: Coronary Disease-Associated Artery/Lesion type: [place] artery [place] vs. transplanted heart: [place] heart Associated angina: without angina Qualified Code(s): I25.10 - Atherosclerotic heart disease of [place] coronary artery without angina pectoris (7) A-fib: Qualifiers: Atrial fibrillation type: paroxysmal Qualified Code(s): I48.0 - Paroxysmal atrial fibrillation (8) Hypertension: Qualifiers: Hypertension type: primary hypertension Qualified Code(s): I10 - Essential (primary) hypertension (9) Diabetes: Qualifiers: Diabetes mellitus type: type 2 Diabetes mellitus care home insulin use: without care home use Diabetes mellitus complication status: with kidney complications Diabetes mellitus complication detail: with chronic kidney disease Chronic kidney disease stage: stage 3 (moderate) Chronic kidney disease stage 3 subtype: stage 3b (GFR 30-44) Qualified Code(s): E11.22 - Type 2 diabetes mellitus with diabetic chronic kidney disease; N18.32 - Chronic kidney disease, stage 3b Plan Admission findings: Acute hypoxemia with O2 sat of 90% on 3 L, sinus tachycardia, uncontrolled hypertension due to healthcare acquired pneumonia. Causing acute exacerbation of COPD-continue current treatment plan patient is slowly improving, down to 1 L nasal cannula supplemental oxygen Acute hypoxemia with O2 sat of 90% on 3 L, sinus tachycardia, uncontrolled hypertension due to healthcare acquired pneumonia. Antibiotics were adjusted yesterday, white blood cell count is improved today, appreciate input from pulmonology and agree with plan of care and diagnoses added Elevation in BNP-further elevation today but creatinine also elevated holding off on further diuretics for today CKD stage IIIb. Deteriorated today secondary to diuresis, holding on diuresis today CAD (coronary artery disease): No chest pain A-fib: Rate controlled, paced rhythm on ECG Hypertension: Continue with current medications Diabetes: Continue with current medications Iron deficiency anemia as well as anemia of chronic kidney disease-continue to monitor daily Severe protein calorie malnutrition-diet management Admission status: Patient admitted with healthcare acquired pneumonia requiring supplemental oxygen, medically necessary treatment will span 2 midnights. Urinary Catheter Management Urinary Catheter Management Urethral: Cath placed during this visit: no
[2024-04-20] MEDS: CARVEDILOL 6.25 MG TABLET PO ×2 (08:46→21:45)
[2024-04-20] MEDS: APIXABAN 5 MG TABLET PO ×2 (08:46→21:45)
[2024-04-20] MEDS: AMLODIPINE BESYLATE 5 MG TABLET 10 MG PO (08:46)
[2024-04-20] MEDS: ALLOPURINOL 300 MG TABLET PO (08:46)
[2024-04-20] MEDS: ATORVASTATIN CALCIUM 10 MG TABLET PO (08:46)
[2024-04-20] MEDS: INSULIN GLARGINE 300 UNIT/3 ML INSULN.PEN 26 UNIT SQ ×2 (08:47→21:46)
[2024-04-20] MEDS: FERROUS SULFATE 325 MG TABLET PO (08:47)
[2024-04-20] MEDS: ENSURE HP 237 ML LIQUID PO ×2 (08:48→21:45)
[2024-04-20] MEDS: MULTIVITAMIN TABLET 1 TAB PO (08:48)
[2024-04-20] MEDS: SOLIFENACIN SUCCINATE 5 MG TABLET PO (08:49)
[2024-04-20] MEDS: SPIRONOLACTONE 25 MG TABLET PO (08:49)
[2024-04-20] MEDS: OXYBUTYNIN CHLORIDE 5 MG TAB XL PO (08:49)
[2024-04-20] MEDS: OMEPRAZOLE 20 MG CAPSULE.DR PO (08:49)
[2024-04-20] MEDS: PREDNISONE 20 MG TABLET 40 MG PO (08:49)
--- NOTE | 2024-04-20 09:33 | CM.NOTE ---
Rounds made with Dr. Dutta, pt continues need for oxygen. PT will evaluate pt this AM d/t increased weakness. No discharge today.
[2024-04-20] MEDS: 0.9 % SODIUM CHLORIDE 250 ML 30 ML IV (11:17)
[2024-04-20 11:28] LABS: NT Pro B Type Natriuretic Pept >35000.0 pg/mL (<=1800.0)
--- NOTE | 2024-04-20 11:56 | CM.NOTE ---
2nd Important Message From Medicare discussed with pt, pt denies questions or concerns.
[2024-04-20] MEDS: CEFTAZIDIME 2,000 MG in 0.9 % SODIUM CHLORIDE 100 ML 200 MG IV (12:50)
--- NOTE | 2024-04-20 14:07 | SWNOTE1 ---
SW spoke to pt about the recommendations of home health. Pt is agreeable to home health and he would like to use [facility] as they already come in and see his . Referral sent to [facility]. Referral included face sheet, ED note, H&P, provider notes, case management report, and PT/OT notes.
--- NOTE | 2024-04-20 16:10 | SWNOTE1 ---
[facility] is able to accept.
[2024-04-20] MEDS: TERAZOSIN HCL 5 MG CAPSULE 10 MG PO (21:45)
[2024-04-21] VITALS (22 sets, daily range): BP systolic 109–142; BP diastolic 60–88; PULSE 74–92; TEMP 36.4–36.6; O2SAT 85–97
[2024-04-21] MEDS: IPRATROPIUM/ALBUTEROL SULFATE 3 ML AMPUL.NEB IH ×4 (04:51→22:51)
[2024-04-21] MEDS: CLINDAMYCIN PHOSPHATE/D5W 600 MG/50 ML PREMIX 100 MG IV ×3 (05:17→17:15)
[2024-04-21] MEDS: HYOSCYAMINE SULFATE 0.125 MG TAB.SUBL SL ×4 (05:17→21:43)
[2024-04-21] MEDS: HYDRALAZINE HCL 50 MG TABLET 100 MG PO ×3 (05:17→21:43)
[2024-04-21 05:30] LABS: Basophils Percent Auto 0.1 % (0.2-2.0); Hematocrit 26.7 % (42.0-54.0); Hemoglobin 9.1 g/dL (14.0-18.0); Immature Granulocytes Abs Auto 0.17 10^3/uL (0.00-0.03); Immature Granulocytes Pct Auto 1.4 % (0.0-0.5); Lymphocytes Absolute Auto 0.7 10^3/uL (1.2-3.8); Lymphocytes Percent Auto 5.5 % (20.5-60.0); Mean Corpuscular HGB Conc 34.1 g/dL (29.9-35.2); Mean Corpuscular Hemoglobin 31.6 pg (25.9-34.0); Mean Corpuscular Volume 92.7 fL (80.0-94.0); Mean Platelet Volume 8.2 fL (9.5-13.5); Monocytes Absolute Auto 0.9 10^3/uL (0.3-0.8); Monocytes Percent Auto 7.3 % (1.7-12.0); Neutrophils Absolute Auto 10.8 10^3/uL (1.4-6.5); Neutrophils Percent Auto 85.7 % (43.0-75.0); Platelet Count 278 10^3/uL (150-450); Red Blood Count 2.88 10^6/uL (4.70-6.10); Red Cell Distribution Width 13.7 % (11.0-15.0); White Blood Count 12.5 10^3/uL (4.0-11.0)
[2024-04-21 05:54] LABS: Alanine Aminotransferase 20 U/L (16-63); Albumin Globulin Ratio 0.7; Albumin Level 2.3 g/dL (3.4-5.0); Alkaline Phosphatase 47 U/L (46-116); Anion Gap 13.8; Aspartate Amino Transferase 13 U/L (15-37); BUN Creatinine Ratio 35.2; Bilirubin Total 0.3 mg/dL (0.2-1.0); Calcium 9.1 mg/dL (8.5-10.1); Carbon Dioxide 24.6 mmol/L (21.0-32.0); Chloride 99 mmol/L (98-107); Estimated GFR (African America 25 (>=60 mL/min/1.73m^2); Estimated GFR (Non-African Ame 20 (>=60 mL/min/1.73m^2); Globulin 3.2 g/dL; Glucose 81 mg/dL (74-106); Potassium 4.4 mmol/L (3.5-5.1); Sodium 133 mmol/L (136-145); Total Protein 5.5 g/dL (6.4-8.2)
--- NOTE | 2024-04-21 06:12 | P.PN_ITS ---
Progress Note: Subjective Subjective Interval history: Patient finally looks like he is feeling better, he states been feeling better for the last couple of days but numbers would say otherwise Exam Constitutional Vital Signs, click to edit/add: Last Vital Signs Temp 97.9 F 04/21/24 04:00 Pulse 77 04/21/24 05:05 Resp 16 04/21/24 05:05 BP 124/65 04/21/24 04:00 Pulse Ox 88 L 04/21/24 05:05 O2 Del Method Home BIPAP / CPAP 04/21/24 05:05 O2 Flow Rate 2 04/20/24 23:29 Documenting provider has reviewed patient's vital signs: yes Common normals: no apparent distress HENMT Common normals: normocephalic Chest Common normals: inspection of chest normal Respiratory Common normals: normal respiratory effort (Some of the) Auscultation: rhonchi (Much better air exchange today); no rales (Much better air exchange today) Cardio Common normals: regular rate and regular rhythm Extremity Common normals: normal to inspection, full ROM and no clubbing, cyanosis or edema Progress Note: Objective Labs Labs: Short CBC 04/20/24 04/21/24 Range/Units 05:34 04:44 WBC 12.9 H 12.5 H (4.0-11.0) 10^3/uL Hgb 9.1 L 9.1 L (14.0-18.0) g/dL Hct 26.7 L 26.7 L (42.0-54.0) % Plt Count 274 278 (150-450) 10^3/uL BMP 04/20/24 04/21/24 05:34 04:44 Sodium 130 L 133 L Potassium 4.3 4.4 Chloride 98 99 Carbon Dioxide 24.4 24.6 BUN 96.0 H* 105.0 H* Creatinine 2.80 H 2.98 H Glucose 164 H 81 Calcium 8.8 9.1 Liver Function 04/20/24 04/21/24 Range/Units 05:34 04:44 Total Bilirubin 0.4 0.3 (0.2-1.0) mg/dL AST 17 13 L (15-37) U/L ALT 19 20 (16-63) U/L Alkaline Phosphatase 48 47 (46-116) U/L Albumin 2.3 L 2.3 L (3.4-5.0) g/dL Progress Note: A&P Assessment and Plan (1) Pneumonia: Qualifiers: Laterality: bilateral Lung location: lower lobe of lung Pneumonia type: due to unspecified organism Qualified Code(s): J18.9 - Pneumonia, unspecified organism (2) Acute on chronic diastolic (congestive) heart failure: (3) COPD exacerbation: (4) Hospital acquired PNA: (5) CKD (chronic kidney disease): Qualifiers: Chronic kidney disease stage: stage 3 (moderate) Chronic kidney disease stage 3 subtype: stage 3b (GFR 30-44) Qualified Code(s): N18.32 - Chronic kidney disease, stage 3b (6) CAD (coronary artery disease): Qualifiers: Associated angina: without angina Coronary Disease-Associated Artery/Lesion type: [place] artery [place] vs. transplanted heart: [place] heart Qualified Code(s): I25.10 - Atherosclerotic heart disease of [place] coronary artery without angina pectoris (7) A-fib: Qualifiers: Atrial fibrillation type: paroxysmal Qualified Code(s): I48.0 - Paroxysmal atrial fibrillation (8) Hypertension: Qualifiers: Hypertension type: primary hypertension Qualified Code(s): I10 - Essential (primary) hypertension (9) Diabetes: Qualifiers: Chronic kidney disease stage: stage 3 (moderate) Chronic kidney disease stage 3 subtype: stage 3b (GFR 30-44) Diabetes mellitus complication detail: with chronic kidney disease Diabetes mellitus complication status: with kidney complications Diabetes mellitus [place] insulin use: without fci use Diabetes mellitus type: type 2 Qualified Code(s): E11.22 - Type 2 diabetes mellitus with diabetic chronic kidney disease; N18.32 - Chronic kidney disease, stage 3b Plan Admission findings: Acute hypoxemia with O2 sat of 90% on 3 L, sinus tachycardia, uncontrolled hypertension due to healthcare acquired pneumonia. Causing acute exacerbation of COPD-continue current treatment plan patient is slowly improving, down to 1 L nasal cannula supplemental oxygen Acute hypoxemia with O2 sat of 90% on 3 L, sinus tachycardia, uncontrolled hypertension due to healthcare acquired pneumonia. Antibiotics were adjusted 04/19, white blood cell count is improved today, appreciate input from pulmo nology and agree with plan of care and diagnoses added-will continue current treatment plan, likely unable to get him weaned off of supplemental oxygen, will do the walk test and likely discharge home tomorrow if white blood cell count continues to improve and hypoxia continues to improve Elevation in BNP-further elevation today but creatinine also elevated holding off on further diuretics for today CKD stage IIIb. Deteriorated today secondary to diuresis, holding on diuresis today CAD (coronary artery disease): No chest pain A-fib: Rate controlled, paced rhythm on ECG Hypertension: Continue with current medications Diabetes: Continue with current medications Iron deficiency anemia as well as anemia of chronic kidney disease-continue to monitor daily Severe protein calorie malnutrition-diet management Admission status: Patient admitted with healthcare acquired pneumonia requiring supplemental oxygen, medically necessary treatment will span 2 midnights. Urinary Catheter Management Urinary Catheter Management Urethral: Cath placed during this visit: no
--- NOTE | 2024-04-21 06:18 | XR_ITS ---
The [address] [address] Patient Name: LEIGHTON ARCINIEGA MRN: [id number] date: 1945 Sex: M Assigned Patient Location: MS Current Patient Location: MS Accession/Order Number: [id number] Exam Date: 04/21/2024 07:55 Report Date: 04/21/2024 08:14 At the request of: LORI MEDINA Procedure: XR chest 2V EXAMINATION: XR chest 2V HISTORY: folow up pna COMPARISON: No relevant comparison available. TECHNIQUE: pa/lat FINDINGS: LUNGS: Moderate bilateral infiltrates, right greater than left, slightly improved VASCULATURE: No increased pulmonary vasculature. PLEURA: No pneumothorax, effusion, or pleural thickening. CARDIAC: No cardiomegaly or cardiac silhouette abnormality. MEDIASTINUM: No visible mass or adenopathy. left pacemaker BONES: No fracture or visible bone lesion. OTHER: Negative. XR/XR chest 2V IMPRESSION: Improved parenchymal infiltrates Electronically authenticated by: ANDREA FAULKNER Date: 04/21/2024 08:14
[2024-04-21 06:30] LABS: NT Pro B Type Natriuretic Pept >35000.0 pg/mL (<=1800.0)
[2024-04-21 06:50] LABS: Troponin I High Sensitivity 42.1 pg/mL (4.0-76.1)
[2024-04-21] MEDS: OXYBUTYNIN CHLORIDE 5 MG TAB XL PO (08:43)
[2024-04-21] MEDS: ENSURE HP 237 ML LIQUID PO ×2 (08:43→21:46)
[2024-04-21] MEDS: MULTIVITAMIN TABLET 1 TAB PO (08:44)
[2024-04-21] MEDS: ATORVASTATIN CALCIUM 10 MG TABLET PO (08:44)
[2024-04-21] MEDS: ALLOPURINOL 300 MG TABLET PO (08:44)
[2024-04-21] MEDS: CARVEDILOL 6.25 MG TABLET PO ×2 (08:44→21:43)
[2024-04-21] MEDS: AMLODIPINE BESYLATE 5 MG TABLET 10 MG PO (08:44)
[2024-04-21] MEDS: SOLIFENACIN SUCCINATE 5 MG TABLET PO (08:44)
[2024-04-21] MEDS: OMEPRAZOLE 20 MG CAPSULE.DR PO (08:44)
[2024-04-21] MEDS: PREDNISONE 20 MG TABLET 40 MG PO (08:44)
[2024-04-21] MEDS: FERROUS SULFATE 325 MG TABLET PO (08:44)
[2024-04-21] MEDS: APIXABAN 5 MG TABLET PO ×2 (08:44→21:44)
--- NOTE | 2024-04-21 09:48 | CM.NOTE ---
Rounds made with Dr. Dutta, no discharge today. Discussed with pt about possible need for home oxygen. Pt will have another chest x-ray today. Pt when medically stable will discharge to home with Sara POE.
[2024-04-21] MEDS: 0.9 % SODIUM CHLORIDE 250 ML 10 ML IV (10:27)
[2024-04-21] MEDS: LEVOFLOXACIN IN DEXTROSE 5 % 750 MG/150 ML PREMIX 100 MG IV (10:28)
[2024-04-21] MEDS: SODIUM CHLORIDE 3% INHALATION 15 ML NEB 3 ML IH ×3 (11:10→22:51)
[2024-04-21] MEDS: POLYETHYLENE GLYCOL 3350 17 GM POWDER PACKET PO (11:27)
[2024-04-21] MEDS: INSULIN ASPART 300 UNIT/3 ML PEN SUBQ ×2 (11:28→21:53)
--- NOTE | 2024-04-21 12:17 | PT.DAILY ---
Physical Therapy Daily Note PT Daily Note/Assess Start: 04/21/24 12:13 Freq: Status: Active Protocol: Document 04/21/24 12:14 COLTON (Rec: 04/21/24 12:17 [id number]) Physical Therapy Daily Note/Assessment Time In/Time Out Time In 09:52 Time Out 10:04 Pain In Pain N/A Pain Out Pain N/A Subjective Subjective Pt sitting in BS chair upon arrival. Agrees to PT. 2L O2. Therapeutic Exercise Time Therapeutic Exercise 3 Minutes (minutes) Therapeutic Exercise 0 Units Therapeutic Exercise Treatment Therapeutic Exercise Seated ex complete to improve functional mobility prior Treatment to gait/transfers. Therapeutic Activity Time Therapeutic Activity 6 Minutes (minutes) Therapeutic Activity 1 Units Therapeutic Activity Treatment Chair Transfer Standby Assistance Ability Therapeutic Activity Sit>stand SBA. Amb in room 120' without AD with assist Comments for O2 lines and catheter. Pt becomes SOB upon completion. SPO2 92%. Total Physical Therapy Time Total Therapy 9 Minutes Total Physical 1 Therapy Units Summary Daily Note Summary Improved gait endurance.
--- NOTE | 2024-04-21 12:59 | SWNOTE1 ---
DARRIUS spoke to daughter and pt in room. Pt is still requiring oxygen and will likely need home oxygen at 2 liters. Pt is aware as doctor told him. Pt would like to use [facility] as that is where he gets bipap from. DARRIUS to send referral. DARRIUS sent face sheet, walk test, DME order, and progress note to [facility].
[2024-04-21] MEDS: CEFTAZIDIME 2,000 MG in 0.9 % SODIUM CHLORIDE 100 ML 200 MG IV (13:13)
--- NOTE | 2024-04-21 15:38 | SWNOTE1 ---
SW received a call from Renee at [facility] and pt's home oxygen is all set for when pt is ready for discharge. SW to let nurse and pt know.
[2024-04-21] MEDS: INSULIN GLARGINE 300 UNIT/3 ML INSULN.PEN 20 UNIT SQ (21:46)
[2024-04-21] MEDS: TERAZOSIN HCL 5 MG CAPSULE 10 MG PO (21:49)
[2024-04-22] VITALS (12 sets, daily range): BP systolic 120–128; BP diastolic 62–72; PULSE 71–104; TEMP 36.4–36.6; O2SAT 90–94
[2024-04-22] MEDS: CLINDAMYCIN PHOSPHATE/D5W 600 MG/50 ML PREMIX 100 MG IV ×2 (03:46→06:20)
[2024-04-22] MEDS: IPRATROPIUM/ALBUTEROL SULFATE 3 ML AMPUL.NEB IH ×2 (04:37→10:40)
[2024-04-22 06:08] LABS: Basophils Percent Auto 0.1 % (0.2-2.0); Immature Granulocytes Abs Auto 0.17 10^3/uL (0.00-0.03); Immature Granulocytes Pct Auto 1.5 % (0.0-0.5); Lymphocytes Absolute Auto 0.7 10^3/uL (1.2-3.8); Lymphocytes Percent Auto 6.5 % (20.5-60.0); Mean Corpuscular HGB Conc 33.3 g/dL (29.9-35.2); Mean Corpuscular Volume 93.1 fL (80.0-94.0); Mean Platelet Volume 8.6 fL (9.5-13.5); Monocytes Absolute Auto 0.8 10^3/uL (0.3-0.8); Monocytes Percent Auto 6.8 % (1.7-12.0); Neutrophils Absolute Auto 9.6 10^3/uL (1.4-6.5); Neutrophils Percent Auto 85.1 % (43.0-75.0); Platelet Count 259 10^3/uL (150-450); Red Cell Distribution Width 13.8 % (11.0-15.0); White Blood Count 11.3 10^3/uL (4.0-11.0)
[2024-04-22] MEDS: HYOSCYAMINE SULFATE 0.125 MG TAB.SUBL SL (06:20)
[2024-04-22] MEDS: HYDRALAZINE HCL 50 MG TABLET 100 MG PO (06:20)
[2024-04-22 06:29] LABS: BUN Creatinine Ratio 38.3; Calcium 8.8 mg/dL (8.5-10.1); Carbon Dioxide 21.8 mmol/L (21.0-32.0); Chloride 97 mmol/L (98-107); Estimated GFR (African America 26 (>=60 mL/min/1.73m^2); Estimated GFR (Non-African Ame 21 (>=60 mL/min/1.73m^2); Glucose 275 mg/dL (74-106); Potassium 4.8 mmol/L (3.5-5.1); Sodium 128 mmol/L (136-145)
[2024-04-22 06:32] LABS: NT Pro B Type Natriuretic Pept >35000.0 pg/mL (<=1800.0)
--- NOTE | 2024-04-22 08:39 | P.DS_ITS ---
DS: Providers Provider Date of admission: 04/16/24 00:15 Primary care physician: Jayy Dutta MD Consults: 04/19/24 09:36 Consult to Pulmonology Routine Consulting Provider: Rick Roy Reason for consultation: progressive pna Has provider been notified: No 04/19/24 09:42 Consult to Cardiology Routine Reason for consultation: chf Has provider been notified: No 04/20/24 10:12 Occupational Therapy Eval and Treat Routine Reason for consultation: eval Has provider been notified: No Physical Therapy Eval and Treat Routine Reason for consultation: eval Has provider been notified: No DS: Diagnosis Discharge Diagnosis (1) Pneumonia: Qualifiers: Laterality: bilateral Lung location: lower lobe of lung Pneumonia type: due to unspecified organism Qualified Code(s): J18.9 - Pneumonia, unspecified organism (2) Acute on chronic diastolic (congestive) heart failure: (3) COPD exacerbation: (4) Hospital acquired PNA: (5) CKD (chronic kidney disease): Qualifiers: Chronic kidney disease stage: stage 3 (moderate) Chronic kidney disease stage 3 subtype: stage 3b (GFR 30-44) Qualified Code(s): N18.32 - Chronic kidney disease, stage 3b (6) CAD (coronary artery disease): Qualifiers: Associated angina: without angina Coronary Disease-Associated Artery/Lesion type: [place] artery [place] vs. transplanted heart: [place] heart Qualified Code(s): I25.10 - Atherosclerotic heart disease of [place] coronary artery without angina pectoris (7) A-fib: Qualifiers: Atrial fibrillation type: paroxysmal Qualified Code(s): I48.0 - Paroxysmal atrial fibrillation (8) Hypertension: Qualifiers: Hypertension type: primary hypertension Qualified Code(s): I10 - Essential (primary) hypertension (9) Diabetes: Qualifiers: Chronic kidney disease stage: stage 3 (moderate) Chronic kidney disease stage 3 subtype: stage 3b (GFR 30-44) Diabetes mellitus complication detail: with chronic kidney disease Diabetes mellitus complication status: with kidney complications Diabetes mellitus director long term care insulin use: without director long term care use Diabetes mellitus type: type 2 Qualified Code(s): E11.22 - Type 2 diabetes mellitus with diabetic chronic kidney disease; N18.32 - Chronic kidney disease, stage 3b Plan Admission findings: Acute hypoxemia with O2 sat of 90% on 3 L, sinus tachycardia, uncontrolled hypertension due to healthcare acquired pneumonia. Causing acute exacerbation of COPD-continue current treatment plan patient is slowly improving, down to 1 L nasal cannula supplemental oxygen Acute hypoxemia with O2 sat of 90% on 3 L, sinus tachycardia, uncontrolled hypertension due to healthcare acquired pneumonia. Antibiotics were adjusted 04/19, white blood cell count is improved today, appreciate input from pulmonology and agree with plan of care and diagnoses added-will continue current treatment plan, likely unable to get him weaned off of supplemental oxygen, will do the walk test and likely discharge home tomorrow if white blood cell count continues to improve and hypoxia continues to improve Elevation in BNP-further elevation today but creatinine also elevated holding off on further diuretics for today CKD stage IIIb. Deteriorated today secondary to diuresis, holding on diuresis today CAD (coronary artery disease): No chest pain A-fib: Rate controlled, paced rhythm on ECG Hypertension: Continue with current medications Diabetes: Continue with current medications Iron deficiency anemia as well as anemia of chronic kidney disease-continue to monitor daily Severe protein calorie malnutrition-diet management Admission status: Patient admitted with healthcare acquired pneumonia requiring supplemental oxygen, medically necessary treatment will span 2 midnights. DS: Summary Hospital Course Hospital Course: Patient with a recent hospitalization, recurrent for UTIs and then pneumonia, was improving discharged to home but a week later started having increasing cough and shortness of breath, this was despite being on his current medications levofloxacin. He had hypoxia in the emergency room, he does not require supplemental oxygen at home prior to admission, placed on broad-spectrum antibiotics, his condition did not improve however over the first 3 days, antibiotics were adjusted on day 3 and over the last several days she has had continuous improvement in his white blood cell count is returning to normal, still on required supplemental oxygen, and at this point I think his emphysema with the recurrent pneumonias is required him to be on his home supplemental oxygen with the hope that over the course of the next month or so he can be weaned off, patient comfortable being discharged to home he is ambulating safely enough in the room and in the hallway, I will follow-up with him in the office next week. Medications see list. Time Spent with Patient Time attestation: Total time spent providing and/or coordinating discharge services: Exam Constitutional Vital Signs, click to edit/add: Last Vital Signs Temp 97.9 F 04/22/24 07:23 Pulse 85 04/22/24 07:51 Resp 18 04/22/24 07:23 BP 125/62 04/22/24 07:23 Pulse Ox 92 L 04/22/24 07:23 O2 Del Method Nasal Cannula 04/22/24 07:23 O2 Flow Rate 2 04/22/24 07:23 Documenting provider has reviewed patient's vital signs: yes Common normals: no apparent distress [facility] Common normals: normocephalic Chest Common normals: inspection of chest normal Respiratory Common normals: normal respiratory effort (Some of the) Auscultation: rhonchi (Not quite resolved but close); no rales (Not quite resolved but close) Cardio Common normals: regular rate and regular rhythm Extremity Common normals: normal to inspection, full ROM and no clubbing, cyanosis or edema DS: Data Data Completed and Pending Labs on day of discharge: Labs from last 24 hours 04/22/24 05:49 WBC 11.3 H RBC 2.90 L Hgb 9.0 L Hct 27.0 L MCV 93.1 MCH 31.0 MCHC 33.3 RDW 13.8 Plt Count 259 MPV 8.6 L Neut % (Auto) 85.1 H Lymph % (Auto) 6.5 L Banks % (Auto) 6.8 Eos % (Auto) 0.0 L Baso % (Auto) 0.1 L Neut # (Auto) 9.6 H Lymph # (Auto) 0.7 L Banks # (Auto) 0.8 Eos # (Auto) 0.0 Baso # (Auto) 0.0 Abs Immat Gran (auto) 0.17 H Imm/Tot Granulo (auto) 1.5 H Sodium 128 L Potassium 4.8 Chloride 97 L Carbon Dioxide 21.8 Anion Gap 14.0 BUN 110.0 H* Creatinine 2.87 H Est GFR ( Amer) 26 L Est GFR (Non-Af Amer) 21 L BUN/Creatinine Ratio 38.3 Glucose 275 H Calcium 8.8 NT-Pro-B Natriuret Pep >65829.0 H* Discharge Plan Discharge Disposition: Home, Self-Care Discharge Medications: New prednisone 10 mg tablet 40 mg PO DAILY Qty: 32 0RF Rx Instructions: 4/day for 3 days, 3/day for 3 days, 2/day for 3 days, 1/day for 3 days, 1/2 /day for 4 days cefdinir 300 mg capsule 600 mg PO DAILY Qty: 20 0RF clindamycin HCl 300 mg capsule 300 mg PO QID 10 Days Qty: 40 0RF Continued hyoscyamine sulfate 0.125 mg Tablet, Sublingual 0.125 mg sublingual QID Qty: 40 0RF mirabegron [Myrbetriq] 25 mg tablet extended release 24 hr 25 mg PO DAILY Qty: 30 11RF tolterodine 2 mg capsule,extended release 24hr 2 mg PO Q24H diclofenac sodium 1 % gel 2 g TOPICAL BID Opzelura 1.5 % cream 1 applic TOPICAL BID PRN (Reason: dermatitis) benzonatate 100 mg Capsule 200 mg PO Q8H PRN (Reason: Cough) Qty: 24 0RF fluconazole 200 mg tablet 400 mg PO Q24H carvedilol 6.25 mg tablet 6.25 mg PO Q12H glipizide 10 mg tablet 10 mg PO BID spironolactone 25 mg tablet 25 mg PO DAILY amlodipine 10 mg tablet 10 mg PO DAILY simvastatin 20 mg tablet 20 mg PO DAILY omeprazole 20 mg capsule,delayed release(DR/EC) 20 mg PO DAILY allopurinol 300 mg tablet 300 mg PO DAILY hydralazine 50 mg tablet 100 mg PO Q8H furosemide 20 mg tablet 20 mg PO Q12H Eliquis 5 mg tablet 5 mg PO Q12H cyanocobalamin (vitamin B-12) [Vitamin B-12] 1,000 mcg tablet 1,000 mcg PO DAILY aspirin [Adult Aspirin Regimen] 81 mg tablet,delayed release (DR/EC) 81 mg PO .weekly calcium citrate-vitamin D3 [Calcium Citrate + D] 315 mg-5 mcg (200 unit) tablet 1 tab PO DAILY multivitamin [Daily Multi-Vitamin] Tablet 1 tab PO DAILY insulin glargine 100 unit/mL (3 mL) insulin pen 26 unit subcut BID acetaminophen 500 mg capsule 1,000 mg PO Q6H PRN (Reason: fever or pain) terazosin 10 mg capsule 10 mg PO BEDTIME Ozempic 1 mg/dose (4 mg/3 mL) pen injector 1 mg subcut QWEEK ferrous sulfate [iron] 325 mg (65 mg iron) tablet 325 mg PO DAILY sildenafil 100 mg tablet 100 mg PO Q24H PRN (Reason: sexual activity) tacrolimus 0.1 % ointment 1 applic TOPICAL Q12H PRN (Reason: skin irritation) Discontinued levofloxacin 750 mg tablet 750 mg PO DAILY 7 Days Qty: 7 0RF Print Language: Lao Patient Instructions: Heart Failure (DC), Urinary Retention in Men (ED), Pneumonia (DC) Offal Roller/Ore Puncher Instructions: Discharge home with home oxygen at 2 liters from [facility]. Please call [facility] at [phone] once you are home or on your way home. Alternate phone number is [phone]. They will deliver the rest of the home oxygen supplies. Discharge with [facility], phone number is [phone]. They should call within 48 hours of discharge Forms: Portal Instructions
[2024-04-22] MEDS: ENSURE HP 237 ML LIQUID PO (08:41)
[2024-04-22] MEDS: OMEPRAZOLE 20 MG CAPSULE.DR PO (08:42)
[2024-04-22] MEDS: SOLIFENACIN SUCCINATE 5 MG TABLET PO (08:42)
[2024-04-22] MEDS: PREDNISONE 20 MG TABLET 40 MG PO (08:42)
[2024-04-22] MEDS: OXYBUTYNIN CHLORIDE 5 MG TAB XL PO (08:42)
[2024-04-22] MEDS: APIXABAN 5 MG TABLET PO (08:42)
[2024-04-22] MEDS: ATORVASTATIN CALCIUM 10 MG TABLET PO (08:42)
[2024-04-22] MEDS: POLYETHYLENE GLYCOL 3350 17 GM POWDER PACKET PO (08:42)
[2024-04-22] MEDS: FERROUS SULFATE 325 MG TABLET PO (08:42)
[2024-04-22] MEDS: MULTIVITAMIN TABLET 1 TAB PO (08:42)
[2024-04-22] MEDS: AMLODIPINE BESYLATE 5 MG TABLET 10 MG PO (08:42)
[2024-04-22] MEDS: ALLOPURINOL 300 MG TABLET PO (08:42)
[2024-04-22] MEDS: CARVEDILOL 6.25 MG TABLET PO (08:42)
[2024-04-22] MEDS: INSULIN ASPART 300 UNIT/3 ML PEN SUBQ (08:43)
[2024-04-22] MEDS: INSULIN GLARGINE 300 UNIT/3 ML INSULN.PEN 20 UNIT SQ (08:44)
[2024-04-22] MEDS: SODIUM CHLORIDE 3% INHALATION 15 ML NEB 3 ML IH (10:42)
--- NOTE | 2024-04-22 11:04 | PT.DAILY ---
Physical Therapy Daily Note PT Daily Note/Assess Start: 04/21/24 12:13 Freq: Status: Active Protocol: Document 04/22/24 10:56 [id number] (Rec: 04/22/24 11:04 [id number]) Physical Therapy Daily Note/Assessment Time In/Time Out Time In 08:20 Time Out 08:34 Pain In Pain Level 4 Pain Out Pain Level 2 Subjective Subjective Patient received in bed and agreeable to participate with PT. States his buttocks is painful. Hoping to go home today. Therapeutic Exercise Time Therapeutic Exercise 5 Minutes (minutes) Therapeutic Exercise 0 Units Therapeutic Exercise Treatment Therapeutic Exercise Patient performed seated ther ex in chair at bedside Treatment after walking. Ther ex to AZAR LE for toe/heel raises, LAQ's, marching, hip ABD/ADD resisted x10 reps to increase LE strength. Therapeutic Activity Time Therapeutic Activity 9 Minutes (minutes) Therapeutic Activity 1 Units Therapeutic Activity Treatment Bed Mobility Ability Minimum Assist Chair Transfer Contact Guard Assist Ability Therapeutic Activity O2 2L @ 94% prior to functional movement. Bed mobility Comments : supine to R sitting EOB with use of R hand rail is MIN A +1 for upper body A. Sitting balance good. Transfer: sit>stand CGA +1 with use of hands to push up . Patient ambulated in room with CGA +1 ~130 feet, 1 moment of instability when turning to the R, patient able to self correct balance without A. O2 @95% after walking. Patient seated in chair at bedside and performed ther ex. Call lindsay withing reach and tray placed before patient for breakfast. Total Physical Therapy Time Total Therapy 14 Minutes Total Physical 1 Therapy Units Summary Daily Note Summary Improved gait distance this date. Patient would benefit from PT to address functional deficits and balance.
--- NOTE | 2024-04-25 13:59 | CM.DCFOLLOWU ---
2/- 1st attempt. No answer
--- NOTE | 2024-04-27 15:26 | CM.DCFOLLOWU ---
Person spoke with:patient How are you feeling?well How is your pain?none Did you understand your discharge instructions?yes Do you have any questions about your discharge instructions?no Were you given any prescriptions at discharge?yes Were you able to get your prescriptions filled?yes Do you understand how to take your medications as ordered?yes Do you have any questions about your follow up appointment and do you plan to keep your follow up appointment? no questions, follow up reviewed Is there anything else that you would like to discuss?no Questions/Comments/Concerns/Other:none
== END 2024-04-22 12:40 | disposition home health service (06) | DRG 193 ==
LOC: ER 21:39 → MS 22:27
PROVIDERS: Nurse Practitioner Family; Registered Nurse; Admitting Provider Internal Medicine; Emergency Provider Emergency Medicine; PCP Family Medicine; Visit Provider Family Medicine
DX: J18.9 Pneumonia, unspecified organism (principal); E43 Unspecified severe protein-calorie malnutrition; I50.33 Acute on chronic diastolic (congestive) heart failure; J96.01 Acute respiratory failure with hypoxia; I13.0 Hypertensive heart and chronic kidney disease with heart failure and stage 1 through stage 4 chronic kidney disease, or unspecified chronic kidney disease; J84.10 Pulmonary fibrosis, unspecified; Z87.891 Personal history of nicotine dependence; Z79.01 Long term (current) use of anticoagulants; Z95.0 Presence of cardiac pacemaker; I25.2 Old myocardial infarction; Z87.440 Personal history of urinary (tract) infections; I25.10 Atherosclerotic heart disease of native coronary artery without angina pectoris; K21.9 Gastro-esophageal reflux disease without esophagitis; Z79.84 Long term (current) use of oral hypoglycemic drugs; Z79.4 Long term (current) use of insulin; Z79.85 Long-term (current) use of injectable non-insulin antidiabetic drugs; Z79.899 Other long term (current) drug therapy; J43.9 Emphysema, unspecified; Y95 Nosocomial condition; E11.22 Type 2 diabetes mellitus with diabetic chronic kidney disease; N18.32 Chronic kidney disease, stage 3b; I48.0 Paroxysmal atrial fibrillation; D50.9 Iron deficiency anemia, unspecified; Z87.01 Personal history of pneumonia (recurrent); Z68.31 Body mass index [BMI] 31.0-31.9, adult; Z99.81 Dependence on supplemental oxygen
CPT/HCPCS: 36415; 71046; 71250; 80048; 80053; 82948; 83605; 83735; 83880; 84484; 85007; 85025; 85027; 87040; 87070; 87205; 87804; 87811; 93005; 94640; 94667; 94668; 94761; 96365; 96368; 96375; 97162; 97165; 97530; 99285; J0713; J1940; J2020; J2543; J2919; J3370; J3475; J7512

== ENCOUNTER 2024-04-27 15:01 | Outpatient (OUT) | payer MEDICARE, OTHER, SELFPAY ==
--- NOTE | 2024-04-27 15:19 | XR_ITS ---
The [address] [address] Patient Name: LEIGHTON ARCINIEGA MRN: [id number] date: 1945 Sex: M Assigned Patient Location: LAB Current Patient Location: LAB Accession/Order Number: [id number] Exam Date: 04/27/2024 15:12 Report Date: 04/27/2024 21:54 At the request of: LORI MEDINA Procedure: XR chest 2V EXAM: XR chest 2V HISTORY: Acute Bronchitis, J20.9 COMPARISON: 04/21/2024 TECHNIQUE: Upright PA and lateral chest x-ray FINDINGS: Increasing interstitial infiltrates are seen in the right mid and lower lung. Underlying chronic interstitial changes are also present. There is slight blunting of both costophrenic angles, without evidence of a pneumothorax. The heart is not enlarged and the vasculature is not distended. A left-sided pacemaker remains in place. XR/XR chest 2V IMPRESSION: Increasing interstitial infiltrates are seen in the right mid and lower lung. This is superimposed upon chronic changes diffusely throughout the lungs. The heart is not enlarged and there is no overt cardiac decompensation. Electronically authenticated by: YARELIS PIMENTEL Date: 04/27/2024 21:54
--- OUTSIDE RECORDS SUMMARY | 2024-04-27 15:22 | XMS_ITS | CCD ---
Author Organization [facility] Care Team Providers Care Associate Professor Of Biostatistics Name Role Phone Andrea Espinoza Unavailable Unavailable [...] Loza Admitting UnavailBarb Lang Attending Unavailabl e Lue Mica MAnisa Admitting Unavailable Lue, Mica MAnisa Attending Unavailable Lori Medina MD Primary Care Provider [phone] BLANCA ALONSO Attending Unavailable PETITTI, BLANCA A Attending Unavailable DANK JONES Attending Unavailable PETTIM, BLANCA Zambrano Attending Unavailable CHUCK, BLANCA Zambrano Attending Unavailable BOBO BRENNER Attending Unavailable LORI MEDINA Primary Care Unavailable LORI MEDINA Primary Care Unavailable BEATA DEGROOT Attending Unavailable Andrea Espinoza DO Primary Care Provider VARGHESE CAAL Attending Unavailable VARGHESE CAAL P Referring Unavailable ANDREA ESPINOZA Primary Care Unavailable OSVALDO DICKINSON Attending Unavailable AFUA VARGHESE P Referring Unavailable PEDROROANDREA Ross Primary Care Unavailable Benton Vasquez DO Attending Provider Unavailab le DayaneMica MAnisa Attending Unavailable Lue, Mica M. Referring Unavailable Lue, Mica M. Attending Unavailable Lue, Mica M. Referring Unavailable Anna Sr Attending Unavailable Lue, Mica M. Attending Unavailable NATA TA Attending Unavailable Lue, Mica M. Referring Unavailable Lue, Mica M. Admitting Unavailable Lue, Mica M. Attending Unavailable Lue, Mica M. Referring Unavailable Lue, Mica M. Admitting Unavailable Lue, Mica M. Attending Unavailable Afua Varghese P Admitting Unavailable Varghese Caal P Attending Unavailable McGlatashan, Varghese P Referring Unavailable Lue, Mica M. Admitting Unavailable Lue, Mica M. Attending Unavailable KatkoSimoneBenton D Attending Unavailable Katko Benton D Admitting Unavailable KatkoBenton D Attending Unavailable Katko, Benton D Admitting Unavailable Deepti Powell Attending Unavailable Lue, Mica M. Attending Unavailable Lue, Mica M. Attending Unavailable Lue, Miac M. Attending Unavailable Lue, Mica M. Attending Unavailable Lue, Miac M. Attending Unavailable Allergies Allergy Classification Reported Allergen(s) Allergy Type Date of Onset Reaction(s) Facility (9 sources) Enalapril; 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: [enalapril] Drug Allergy 11-21-20 23 [facility] (18 sources) Metoprolol; 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: [metoprolol] Drug Allergy 10-12-19 23 Cough, Unknown [facility] y 250 DO Work Phone: (4 sources) Fosinopril; 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: [Monopril] Drug Allergy 03-16-20 14 [facility] (1 source) Metoprolol Drug Allergy 05-16-19 15 [facility] (1 source) strawberry allergenic extract Drug Allergy 05-16-19 15 [facility] (1 source) tomato allergenic extract Drug Allergy 05-16-19 15 [facility] (3 sources) hydroCHLOROthiazide / Metoprolol; 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: [hydrochlorothiazide-m etoprolol] Drug Allergy [facility] (3 sources) Simms; 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: [Strawberries] Food allergy (disorder) [facility] (3 sources) Tomatoes; 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: [Tomatoes] Food allergy (disorder) [facility] (6 sources) Fosinopril; 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: [FOSINOPRIL] Drug [...] Start: 03-20-2020 take 2 tablets by mo [facility] three times daily hydrALAZINE HCl - [...] sources) Polyene Antifungal Start: 08-10-2023 nystatin (Mycostatin) [id number] UNIT/GM powder Indications: Erythema intertrigo Apply to [...] disease (2 sources) Atherosclerotic heart disease of [place] coronary artery without angina pectoris; 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: [Old [...] source) half-way (current) use of aspirin; 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: [SCIENTIFIC PROGRAMMER CURRENT USE OF ASPIRIN] Onset: 06-01-2022 Episodic Other aftercare (1 source) Other salvage determiner (current) drug therapy; 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: [OTH LONG-TERM CURRENT [...] Range Facil ity Ambulatory Visit Summaryon 0 04-26-2024 Ambulatory Visit Summary Ambulatory Visit Summary LEIGHTON ARCINIEGA Tyrese :1945 Visit Date:04/26/2024 Ambulatory Visit Instructions Your Diagnosis Urinary retention BPH with urinary obstruction Prostatitis UTI (urinary tract infection) Anticoagulated Your Care Team Attending Physician - Josep SANDHU, Mica Johns Primary Care Physician - Lori Medina MD This Is Your Medications List finasteride (finasteride 5 mg Tab) terazosin (terazosin 10 mg Cap) Contact prescribing [...] 50 mg Tab) insulin glargine (Lantus) levofloxacin (Levaquin 500 mg Tab) levofloxacin (levofloxacin 750 mg Tab) liraglutide (Victoza) multivitamin (Multi Vitamins oral tablet) omeprazole (omeprazole 20 mg Cap-DR) semaglutide (Ozempic (1 mg dose)) sildenafil (sildenafil 100 mg Tab) simvastatin (simvastatin 20 mg Tab) spironolactone (spironolactone 25 mg Tab) triamcinolone (Triamcinolone Acetonide) valsartan (valsartan 160 mg Tab) [Image Removed: STOP]Stop taking these medications tolterodine (tolterodine 2 mg Cap-ER) Procedures Performed Pacemaker (08/15/2016), Arthroscopy of knee, Colonoscopy, Ring finger Amputation, Tonsillectomy. What to do next Scheduled Follow-Up Appointments 2024 11:15 AM EST With: Mica Car MD Where: [facility] [address] [place] [address] 2024 11:00 AM EDT With: Where: [facility] You Need to Schedule the Following Appointments Follow Up with Mica Car MD, URL, URO When: Where: Medications What How Much When Instructions New finasteride (finasteride 5 mg Tab) 1 Tablets By Mouth Every day Refills: 11 Pickup at [facility] #[id number] Unchanged terazosin (terazosin 10 mg Cap) 1 Capsules By Mouth Once a day (at bedtime) Unchanged acetaminophen (Tylenol Extra Strength 500 mg [...] prescribing physician if questions or concerns Unchanged levofloxacin (Levaquin 500 mg Tab) 1 Tablets By Mouth Every 24 hours Duration: 3 (more content not included)... Normal [facility] Urology Office/Clinic Noteon 04-26-2024 Urology Office/Clinic Note Urology Office/Clinic Note HPI Staff 78 yo male here for PVR and gomez placement. History of Present Illness Tests reviewed: none. I have reviewed the previous health record information and history for this patient from Dr. Car I have reviewed and verified the staff HPI to be accurate for this encounter. There have been no associated fever, chills, flank pain, or blood in the urine. Denies any urinary infections since last encounter. Review of Systems ROS - Provider Constitutional: denies weight loss, denies hot flashes. Eyes: denies eye problems. Gastrointestinal: denies nausea, denies vomiting. Cardiovascular: denies chest pain or angina. Integumentary: no dryness Musculoskeletal: denies musculoskeletal symptoms. ENMT: denies otolaryngeal symptoms. Respiratory: no shortness of breath. Heme/Lymph: denies easy bleeding tendency, denies easy bruising tendency. Psychiatric: no confusion, no anxiety. Genitourinary: See HPI. Physical Exam General Appearance: alert, no distress, well nourished, well developed male. Assessment/Plan 78 yo male presents for PVR and gomez placement due to UR. 1. Urinary retention (R33.9: Retention of urine, unspecified) Pt states he was admitted at [facility] x 4 days due to PNA, Gomez removed and discharged 04/08/24. Pt states he presented back to [facility] ER due to UR. Gomez placed, PVR 510 mL. PVR at prior OV was 124ml. Fill and pull 04/25/24. PVR 04/25/24 78 mL. Fill and pull 04/25/24. Pt called our office today due to UR, only dribbling. PVR today 531 mL. 16Fr coude gomez placed with 10 cc in balloon. Discussed adding medications to assist with voiding. Pt agrees -Cysto 05/18/24 -Start finasteride 5 mg daily, risks/benefit discussed -Cont terazosin 2. BPH with urinary obstruction (N40.1: Benign prostatic hyperplasia with lower urinary tract symptoms) S/p Rezum by Dr. Vargas 09/16/16. Lasted over 5 yrs per pt. S/p Cystoscopy, TRUS 01/27/2024 - moderate to severe bilobar hypertrophy and elevated bladder neck, calculated prostate volume of 57.7 mL (On CT scan, ~ 80 g) S/p Rezum by JAYLEEN 02/14/24 - 9 treatments, Rt side did not have full cycles due to machine malfunction, therefore repeated. Prior IPSS 25 (20) Taking Terazosin 10mg qhs- feels this worked better than tamsulosin. Pt directed to d/c Tolterodine at last visit. -See #1 -Cysto scheduled 05/18/24 3. Prostatitis (N41.9: Inflammatory disease of prostate, unspecified) Likely due to Rezum. Inadequate abx treatments. Discussed how prostatitis needs prolonged treatment to prevent recurrence and prolonged issues. May still be present despite neg UA. No abscess obvious on CT scan. See #4. Complete abx, tolerating well, denies perineal pain 4. UTI (urinary tract infection) (N39.0: Urinary tract infection, site not specified) [facility] ER 02/19/24 (day after gomez removal) d/t gross hematuria and dysuria. Pt is on Eliquis. UA showed hgb/leuks so they started him on Keflex x 10d. Cx came back nl elin. No further bleeding since then. Pt went to [place] ER 02/26/24 d/t persistent dysuria. Admitted for 3 days. Received IV abx. Dc'd on Cipro x 10d and Levsin. Urine and blood cx both came back neg. [facility] ER 04/08/24 U.Cx was negative. Pt had an infection at the time of him being admitted in the hospital, is currently on abx. Advised pt to continue to abx that was given at the time of the ER visit. Started on Levaquin 500mg qd x3 wks 04/12/24. -Complete ATB course -See #3 5. Anticoagulated (Z79.01: terminal clerk (current) use of anticoagulants) Eliquis. Elevated risk of periop complications. Follow-up With When Contact Information Josep SANDHU, Mica Johns, URL, URO Additional Instructions: Cysto 05/18/24 Patient Education Indwelling Urinary Catheter Insertion I, Carleen Fierro, personally scribed for Dr. Car on 04/26/2024 11:45:15. . Documentation recorded by the scribe, Carleen Fierro, accurately reflects the services(s) I performed and decisions made by me. Authenticated by Dr. Car on 04/26/2024 11:59:32. Problem List/Past Medical History Ongoing Anticoagulated Arthritis Aspirin long-term use BPH with urinary obstruction CKD (chronic kidney disease) stage 3, GFR 30-59 ml/min Diabetes ED (erectile dysfunction) Emphysema/COPD Epidermal cyst Extreme obesity Former smoker Heart disease Hx of migraine headaches Hypercholesteremia Incomplete bladder emptying Kidney stones Myocardial infarct Nocturia Obstructive sleep apnea syndrome Paroxysmal atrial fibrillation Prostate hyperplasia with urinary obstruction Prostatitis Right bundle branch block AND left anterior fascicular block Screening PSA (prostate specific antigen) Seborrheic keratoses SSS (sick sinus syndrome) Urinary retention Urinary urgency UTI (urinary tract infection) Historical Acute kidney failure Asthma CHF (congestive heart failure) DM (diabetes (more content not included)... Normal [facility] Comment on above: Result Comment: Elec tronically Signed By: Mica Car MD\.br\Date and Time Signed: 04/26/24 11:59 EST\.br\Electronically Co-Signed By: Carleen Fierro\.br\Date and Time Co-Signed: 04/26/24 11:45 EST Ambulatory Visit Summaryon 0 04-12-2024 Ambulatory Visit Summary Ambulatory Visit Summary LEIGHTON ARCINIEGA :1945 Visit Date:04/12/2024 Ambulatory Visit Instructions Your Diagnosis Urinary retention BPH with urinary obstruction Prostatitis UTI (urinary tract infection) Anticoagulated Other obstructive and reflux uropathy Your Care Team Attending Physician - Mica [...] AM EST With: Where: [facility] [address] [address]- Wednesday 1:00 PM EST With: Mica Car MD Where: [facility] [address] [place] [address] 2024 11:00 AM EDT With: Where: [facility] You Need to Schedule the Following Appointments Follow Up with Josep SANDHU, Mica Johns, URL, URO When: In 1 month Comments: w/PVR Where: Medications What How Much When Instructions New levofloxacin (Levaquin 500 mg Tab) 1 Tablets By Mouth Every 24 hours Duration: 3 Weeks Pickup at [facility] #[id number] Unchanged acetaminophen (Tylenol Extra Strength 500 mg [...] 3 time (more content not included)... Normal [facility] Urology Office/Clinic Noteon 04-12-2024 Urology Office/Clinic Note Urology Office/Clinic Note Chief Complaint 1 mth f/u HPI Staff 78yr old male pt here for 1mo f/u with PVR. S/p Cystoscopy, TRUS 01/27/2024, Rezume done on 02/14/24 w/ Dr. Car. Previous Dx: uti, BPH with urinary obstruction, anticoagulated *terazosin 10 mg qd, sildenafil 100mg PRN pt has Gomez. Pt states he was in [facility] for 4 days for pneumonia, Wednesday he was released and Gomez was taken out. Pt then states he could not urinate so he went back to [facility] and they placed the Gomez. History of [...] has Gomez. Pt states he was in [facility] for 4 days for pneumonia, Wednesday he was released and Gomez was taken out. Pt then states he could not urinate so he went back to [facility] and they placed the Gomez, PVR at [...] scan, ~ 80 g) S/p Rezum by KM 02/14/24 - 9 treatments, Rt side did [...] further bleeding since then. Pt went to [place] ER 02/26/24 d/t persistent dysuria. Admitted for 3 days. Received IV abx. Dc'd on Cipro x 10d and Levsin. Urine and blood cx both came back neg. [facility] ER 04/08/24 U.Cx was negative. Pt had [...] be stoppe (more content not included)... Normal [facility] Comment on above: Result Comment: Elec tronically Signed By: Mica Car MD\.br\Date and Time Signed: 04/12/24 12:07 EST\.br\Electronically Co-Signed By: Kavita Mukherjee\.br\Date and Time Co-Signed: 04/12/24 11:48 EST Urine Cultureon 03-28-2024 Bacteria identified Cx Nom (U) No Growth 2 Days PERFORMED BY: [place] [address] PATHOLOGIST CATTLE MANAGER OSCAR ESCOBAR M.D. Normal [facility] Comment on above: Performed By: #### C UU #### [address] C Urineon 03-26-2024 Bacteria identified Cx [...] Locations R1: This test was performed at: [facility], [address] [place] [address], [address]- , , Normal [facility] Comment on above: Performed By: #### 2 [id number] #### [facility] [address] [place] [address] Main OR Preoperative Recordo n 03-20-2024 Main OR Preoperative Record Main OR Preoperative Record Holding Area Document Type FTURO Summary Primary Physician: Mica Car MD Finalized Date/Time: 03/20/24 16:29:34 Pt. Name: LEIGHTON ARCINIEGA Tyrese [place]/Sex: 1945 Male Med Rec #: [id number] Physician: Mica Car MD Financial #: [id number] Pt. Type: O Room/Bed: / Admit/Disch: 12/27/23 [...] Complaints of Pain: No Skin Integrity Intact, [place], Warm, & Dry Vitals - EU Blood Pressure 122/75 Pulse 81 bpm Respirations 18 br/min SPO2 96 % Additional None RN Reviewed Yes Specimens Collected Last Modified By: Ankita Gray RN 12/27/23 11:25:48 Finalized By: Kendrick GODINEZ, Dalia MARTINEZ Document Signatures Signed By: Latha David LPN 12/27/23 11:01 Latha David LPN 12/27/23 11:02 Kendrick GODINEZ, Lyn MARTINEZhann 03/20/24 16:29 Normal [facility] Urine Cultureon 03-11-2024 Bacteria identified Cx Nom (U) ORGANISM: Prudence glabrata (O:CANGLA) [place] Count 75,000 PERFORMED BY: [facility] [address] [place] [address] PATHOLOGIST CATTLE MANAGER OSCAR ESCOBAR M.D. Normal [facility] Comment on above: Performed By: #### C UU #### [address] Urine cultureOrdered By: Derek Vasquez on 03-11-2024 Bacteria identified Cx Nom (U) Abnormal [facility] Urology Office/Clinic Noteon 03-02-2024 Urology [...] that he had 3 day stay at [facility] on 02/26/24 for severe UTI & [...] further bleeding since then. Pt went to [place] ER 02/26/24 d/t persistent dysuria. Admitted for [...] volume of 57.7 mL S/p Rezum by KMAmanda 02/14/24 Gomez removed 02/18/24. IPSS 20 (13), QoL 5 PVR 124ml Told him to continue Alfuzosin. Ordered: [id number] Measure Post Void residual urine and/or bladder [...] Urnls Dip Stick Auto w/o Microscopy POC 15088 3. Anticoagulated (Z79.01: half-way (current) use of anticoagulants) on Eliquis. Follow-up [...] Hypercholesteremia Inco (more content not included)... Normal [facility] Comment on above: Result Comment: Elec tronically Signed By: NATA TA PA-C\.br\Date and Time Signed: 03/02/24 17:13 EST\.br\Electronically Co-Signed By: Martir Sheabr\Date and Time Co-Signed: 03/02/24 13:38 EST ECG 12 Leadon 03-01-2024 AV paced rhythm [facility] Work Phone: URINE CULTUREon 02-19-2024 Bacteria identified Cx Nom (U) CULTURE RESULTS 10-50,000 ORGANISMS/mL NORMAL UROGENITAL ELIN Normal [facility] Comment on above: Performed By: #### 6 30-4 #### [facility] ([id number]) [address], [address] [place] [address] URN MACROSCOPIC NURon 2023 BILIRUBIN LETHA Negative Normal NEG [facility] Comment on above: Performed By: #### N UM #### [facility] ([id number]) [address] [place] [address] BLOOD/HGB LETHA Large Abnormal NEG [facility] Comment on above: Performed By: #### N UM #### [facility] ([id number]) [address] [place] [address] 07363 GLUCOSE LETHA >=1000 Abnormal NEG [facility] Comment on above: Performed By: #### N UM #### [facility] ([id number]) [address] [place] [address]4085 KETONES LETHA Negative Normal NEG [facility] Comment on above: Performed By: #### N UM #### [facility] ([id number]) [address] [place] [address] 99958 LEUKOCYTE ESTERASE LETHA Small Abnormal NEG [facility] Comment on above: Performed By: #### N UM #### [facility] ([id number]) [address] [place] [address] 27538 NITRITE LETHA Negative Normal NEG [facility] Comment on above: Performed By: #### N UM #### [facility] ([id number]) [address] [place] [address] 88290 PH LETHA 6.0 Normal 5.0-8.5 [facility] Comment on above: Performed By: #### N UM #### [facility] ([id number]) [address] [place] [address] PROTEIN LETHA 100 mg/dL Abnormal NEG [facility] Comment on above: Performed By: #### N UM #### [facility] ([id number]) [address] [place] [address] 92434 SPECIFIC GRAVITY LETHA 1.015 Normal 1.003-1.035 [facility] Comment on above: Performed By: #### N UM #### [facility] ([id number]) [address] [place] [address] 80385 UROBILINOGEN LETHA 0.2 eu/dL Normal <1.1 [facility] Comment on above: Performed By: #### N UM #### [facility] ([id number]) [address] [place] [address] Inpatient Patient Summaryon 02-14-2024 Inpatient Patient Summary Inpatient Patient Summary [place] [address] Clinical Summary Person Information Name: LEIGHTON ARCINIEGA Age: 78 Years : 1945 Sex: Male PCP: Lori Medina MD Marital Status: Race: White Ethnicity: Non- or Language: Uzbek Visit Id: Visit Reason: BPH WITH URINARY OBSTRUCTION Speciality: Acuity: Enc Type: Outpatient Med Service: Surgery Arrival: 02/14/2024 09:35:51 Discharge: Dispo Type: Address: [address] [place] [address] DR TONEY [address] [place] [id number] Provider Notes: Diagnosis: BPH with obstruction/lower urinary [...] day as needed for pain. acetaminophen-hydroc odone (Clearwater 325 mg-5 mg oral tablet) 1 Tablets [...] Information: EU - Rezum Discharge Instructions (CUSTOM) [facility] Main OR Intraoperative Recor don 02-14-2024 Main OR Intraoperative Record Main OR Intraoperative Record IntraOp Document Type FTURO Summary Primary Physician: Mica Car MD Finalized Date/Time: 02/14/24 12:08:58 Pt. Name: LEIGHTON ARCINIEGA/Sex: 1945 Male Med Rec #: [id number] Physician: Mica Car MD Financial #: [id number] Pt. Type: O Room/Bed: / Admit/Disch: 02/14/24 [...] 3 Case Attendee Josep SANDHU, Jocy Perea WET POUR MIXER, Aura Zambrano Role Performed Surgeon - Primary Ms Sql Server Developer - Primary Scrub - Primary Time In [...] Corral 02/14/24 12:08 Jocy Corral 02/14/24 12:08 Normal [facility] Main OR Preoperative Recordo n 02-14-2024 Main OR Preoperative Record Main OR Preoperative Record Holding Area Document Type FTURO Summary Primary Physician: Mica Car MD Finalized Date/Time: 02/14/24 11:48:27 Pt. Name: LEIGHTON ARCINIEGA /Sex: 1945 Male Med Rec #: [id number] Physician: Mica Car MD Financial #: [id number] Pt. Type: O Room/Bed: / Admit/Disch: 02/14/24 [...] Complaints of Pain: No Skin Integrity Intact, [place], Warm, & Dry Vitals - EU Blood Pressure 152/74 Pulse 61 bpm Respirations 18 br/min SPO2 97 % Additional None RN Reviewed Yes Specimens Collected Last Modified By: Jocy Corral 02/14/24 11:48:23 Finalized By: Jocy Corral Document Signatures Signed By: Latha David LPN 02/14/24 11:05 Jocy Corral 02/14/24 11:48 Jocy Corral 02/14/24 11:48 Normal [facility] Operative Reporton Operative Report Operative Report Patient: [...] clearer. Follow-up in 1 month PVR.. Normal [facility] Comment on above: Result Comment: Elec tronically Signed By: Mica Car MD\.br\Date and Time Signed: 02/14/24 12:03 EST Outpatient Surgery Discharge Instructionon 02-14-2024 Outpatient Surgery Discharge Instruction Outpatient Surgery Discharge Instruction [place] [id number] Patient Discharge Instructions PERSON INFORMATION Name: LEIGHTON [...] CALL 911 Follow up: With: Address: When: Mcia Car Comments: Office to schedule follow up: [...] While there (more content not included)... Normal [facility] Ambulatory Visit Summaryon 1 04-01-2023 Ambulatory Visit [...] Strength 500 mg oral tablet) acetaminophen-hydroc odone ([place] 325 mg-5 mg oral tablet) allopurinol (allopurinol [...] if questions or concerns Unchanged acetaminophen-hydroc odone ([place] 325 mg-5 mg oral tablet) 1 Tablets [...] omeprazole (omep (more content not included)... Normal [facility] Urology Office/Clinic Noteon 01-31-2024 Urology Office/Clinic Note Urology Office/Clinic Note [facility] Staff 78 year old male patient presents today for a [facility] ER follow up 01/23/24. [...] with voice recognition artificial intelligence software, specifically [employer], [employer] and or [employer]. Substitutions may have occurred due to the [...] (N52.9: Male erectile dysfunction, unspecified) Hx of CA in 2002. Has pacemaker in place. Denies [...] in medic (more content not included)... Normal [facility] Comment on above: Result Comment: Elec tronically Signed By: MICHAEL Sr APRN, Anna Herrera\.br\Date and Time Signed: 01/31/24 16:26 EST URINE CULTUREon 01-24-2024 Bacteria identified Cx Nom (U) CULTURE RESULTS NO GROWTH AT <1000 CFU/mL Normal [facility] Comment on above: Performed By: #### 6 30-4 #### [facility] ([id number]) [address] [place] [address], [address] [place] [address] URN MACROSCOPIC NURon 2023 BILIRUBIN LETHA Negative Normal NEG [facility] Comment on above: Performed By: #### N UM #### [facility] ([id number]) [address] [place] [address]66 BLOOD/HGB LETHA Trace Abnormal NEG [facility] Comment on above: Performed By: #### N UM #### [facility] ([id number]) [address] [place] [address] 30116 GLUCOSE LETHA >=1000 Abnormal NEG [facility] Comment on above: Performed By: #### N UM #### [facility] ([id number]) [address] [place] [address] 51172 KETONES LETAH Negative Normal NEG [facility] Comment on above: Performed By: #### N UM #### [facility] ([id number]) [address] [place] [address] 54266 LEUKOCYTE ESTERASE LETHA Large Abnormal NEG [facility] Comment on above: Performed By: #### N UM #### [facility] ([id number]) [address] [place] [address] 64465 NITRITE LETHA Negative Normal NEG [facility] Comment on above: Performed By: #### N UM #### [facility] ([id number]) [address] [place] [address] 49015 PH LETHA 6.0 Normal 5.0-8.5 [facility] Comment on above: Performed By: #### N UM #### [facility] ([id number]) [address] [place] [address] 24854 PROTEIN LETHA 100 mg/dL Abnormal NEG [facility] Comment on above: Performed By: #### N UM #### [facility] ([id number]) [address] [place] [address] 95792 SPECIFIC GRAVITY LETHA 1.015 Normal 1.003-1.035 [facility] Comment on above: Performed By: #### N UM #### [facility] ([id number]) [address] [place] [address] 73449 UROBILINOGEN LETHA 0.2 eu/dL Normal <1.1 [facility] Comment on above: Performed By: #### N UM #### [facility] ([id number]) [address] [place] [address] 25453 Inpatient Patient Summaryon 12-27-2023 Inpatient Patient Summary Inpatient Patient Summary [address] [address] Clinical Summary Person Information Name: LEIGHTON ARCINIEGA Age: 78 Years : 1945 Sex: Male PCP: Lori Medina MD Marital Status: Race: White Ethnicity: Non- or Language: Uzbek Visit Id: Visit Reason: BPH WITH URINARY OBSTRUCTION Speciality: Acuity: Enc Type: Outpatient Med Service: Surgery Arrival: 12/27/2023 09:33:05 Discharge: Dispo Type: Address: [facility] [address] [facility] [id number] Provider Notes: Diagnosis: Anticoagulated; Other obstructive and [...] day as needed for pain. acetaminophen-hydroc odone (Clearwater 325 mg-5 mg oral tablet) 1 Tablets [...] When: Mica Car Comments: Office to schedule [facility] Type Location Start Finish State NCV Pacemaker (FT) FT.CARDIO 06/01/2024 11:00 AM 06/01/2024 11:15 AM Confirmed Patient Education Information: EU - Cystoscopy Discharge Instructions (CUSTOM) [facility] Main OR Intraoperative Recor don 12-27-2023 Main OR Intraoperative Record Main OR Intraoperative Record IntraOp Document Type FTURO Summary Primary Physician: Mica Car MD Finalized Date/Time: 12/27/23 11:42:38 Pt. Name: LEIGHTON ARCINIEGA Tyrese Greenfield/Sex: 1945 Male Med Rec #: [id number] Physician: Mica Car MD Financial #: [id number] Pt. Type: O Room/Bed: / Admit/Disch: 12/27/23 [...] Micky Vargas Role Performed Surgeon - Primary Ms Sql Server Developer - Primary Scrub - Primary Time In [...] By: Ankita Gray RN 12/27/23 11:42 [facility] Operative Reporton Operative Report Operative Report Patient: LEIGHTON ARCINIEGA Age: 78 years Sex: Male : 1945 Associated Diagnoses: None Author: Mica Car MD Procedure Operative Information Details: Date/ Time: 12/27/2023 12:10:00. Pre-Op Dx: BPH w/ LUTS - N40.1. Post-Op Dx: Feeling of incomplete bladder emptying ([id number] R39.14, Working, Medical), Anticoagulated (GCR54-VC Z79.01, Discharge, Medical), Same. Anesthesia Type: Local. [...] and Valium prior to procedure. 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 -Will need blood thinners held prior to procedure. Elevated risk of bleeding discussed. -Patient did better on terazosin. Will DC tamsulosin and restart terazosin 10 mg daily. Medication sent to [facility] in [place].. [facility] Comment on above: Result Comment: Elec tronically Signed By: Josep SANDHU, Mica Johns\.br\Date and Time Signed: 12/27/23 12:14 EDT Outpatient Surgery Discharge Instructionon 12-27-2023 Outpatient Surgery Discharge Instruction Outpatient Surgery Discharge Instruction [place] [id number] Patient Discharge Instructions PERSON INFORMATION Name: LEIGHTON [...] When: Mica Car Comments: Office to schedule [facility] Location Start [facility] State NCV Pacemaker (FT) FT.CARDIO 06/01/2024 11:00 [...] Date You may receive a survey from [employer] asking you to rate your care experience. Your feedback is important and will help us understand what we do well and how we can improve the quality of care we provide to you, your loved ones and our community. It?s an honor to serve you. Thank you for choosing [facility] Ambulatory Visit Summaryon 0 11-12-2023 Ambulatory Visit Summary Ambulatory Visit Summary SUZELEIGHTON Tyrese :1945 Visit Date:11/12/2023 Ambulatory Visit Instructions Your [...] Strength 500 mg oral tablet) acetaminophen-hydroc odone (Clearwater 325 mg-5 mg oral tablet) allopurinol (allopurinol [...] if questions or concerns Unchanged acetaminophen-hydroc odone (Clearwater 325 mg-5 mg oral tablet) 1 Tablets [...] Mouth E (more content not included)... [facility] Urology Office/Clinic Noteon 11-12-2023 Urology Office/Clinic Note [...] (N52.9: Male erectile dysfunction, unspecified) Hx of CA in 2002. Has pacemaker in place. Denies [...] antigen) Seborr (more content not included)... [facility] Comment on above: Result Comment: Elec tronically Signed By: Mica Car MD\.br\Date and Time Signed: 11/12/23 16:43 EDT\.br\Electronically Co-Signed By: Maria Luz Mejia\.br\Date and Time Co-Signed: 11/12/23 16:14 EDT PTH [place] 10-15-2023 Parathyrin.intact [Mass/Vol] 49 pg/mL Invalid Interpretation Code 15-65 [facility] Comment on above: Result Comment: Perf ormed at: [facility] [address] [id number] PhD Carlos Singh Performed By: #### 1 [id number] #### [facility] [address] [place] [address] ED Clinical Summaryon 2023 ED Clinical Summary ED Clinical Summary [facility] [address] [place], [place] [address] ED Clinical Summary Person Information Name: LEIGHTON ARCINIEGA Yaa/[facility] Age: 77 Years : 1945 Sex: Male Language: Uzbek PCP: Lori Medina MD Marital Status: Visit [...] 10/14/2023 13:18:55 10/14/2023 13:18:55 10/14/2023 13:18:55 ADDRESS: [address] [place] [phone] PHYS DOC NOTES: MEDICAL INFORMATION: Prescriptions Given: New Medications [id number], [address] [place], [place] [id number], [phone] acetaminophen-hydroc odone (Clearwater 325 mg-5 mg oral tablet) 1 Tablets [...] EDUCATION INFORMATION: Instructions: Acute Knee Pain, Adult, Lmuf-lt-Kdyt Follow up: With: Address: When: Andrea Espana [address] [place], [place] [id number] Business (1) In 3 days 10/17/2023 With: Address: When: Call to schedule a follow-up appointment with your orthopedic surgeon. Use the Clearwater as needed for pain along with icing. . If you are unable to get in with your orthopedic surgeon, I have provided a referral for another one. In 3 days 10/17/2023 With: Address: When: Lori Medina [address] [place] [address], [facility] [place] [address] Business (1) In 3 days DIAGNOSIS: Posterior left knee pain [facility] ED Note-Physicianon 10-14-19 ED Note-Physician ED Note-Physician [...] an orthopedic surgeon in [facility] for arthritis in which he will follow-up for further management of care. Patient is on Eliquis therefore I cannot prescribe him naproxen or any form of NSAID. Due to his age I did not feel a muscle relaxer was appropriate either. Based on this he is being prescribed 4 doses of Clearwater. He was educated on appropriate use of [...] q4hr for pain, 4 tab(s), Refill(s) 0, [id number], 177, cm, 10/14/23 11:44:00 EDT, Height/Length Dosing, 104.8, kg, 10/14/23 11:44:00 EDT, Weight Dosing Disposition Plan Patient Discharge Condition stable Discharge Disposition home Discharge Prescription List Prescriptions Clearwater 325 mg-5 mg oral tablet, 1 tab(s), Oral, q4hr, PRN Follow-up With When Contact Information Andrea Espana In 3 days 10/17/2023 EDT [address] [place] [address]- Business (1) Additional Instructions: Call to schedule a follow-up appointment with your orthopedic surgeon. Use the Clearwater as needed for pain along with icing. . If you are unable to get in with your orthopedic surgeon, I have provided a referral for another one. In 3 days 10/17/2023 EDT Additional Instructions: Lori Medina In 3 days [address] [place] [address]- Business (1) Additional Instructions: Patient Education Acute Knee Pain, Adult, Utgd-fi-Uwsc Attestation Patient seen and evaluated by the physician district administrative assistant. Attending physician was present in the emergency department and supervised care. This visit was performed by both the physician and an APC. I performed all aspects of the MDM as documented. This report was transcribed using voice recognition software. Every effort was made to ensure accuracy, however, inadvertently computerized hospitality services manager mistakes may be present. Appropriate healthcare PPE was used in evaluating this patient. The patient was placed in a mask. The healthcare provider was wearing mask, gloves, and utiliz (more content not included)... [facility] Comment on above: Result Comment: Elec tronically Signed By: Vini Quinteros DO\.br\Date and Time Signed: 10/14/23 16:09 EDT\.br\Electronically Co-Signed By: Nayla William PA-C\.br\Date and Time Co-Signed: 10/14/23 13:46 EDT ED Patient Summaryon 024 ED Patient Summary ED Patient Summary [place] [id number] Patient Discharge Instructions Person Information Name: LEIGHTON ARCINIEGA Age: 77 Years Arrival Date: 10/14/2023 11:36:13 Discharge Diagnosis: Posterior left knee pain Primary Care Physician: Lori Medina MD Provider Information Primary Provider: Vini Quinteros DO Advanced Pressure Tester Operator:Nayla William PA-C The exam and treatment you received in the Emergency Department were for an urgent problem and are not intended as complete care. It is important that you follow up with a doctor, nurse practitioner, or physician?s district administrative assistant for ongoing care. If your symptoms [...] Instructions: With: Address: When: Andrea Espana [address] [place] [address] Business (1) In 3 days 10/17/2023 With: Address: When: Call to schedule a follow-up appointment with your orthopedic surgeon. Use the Clearwater as needed for pain along with icing. . If you are unable to get in with your orthopedic surgeon, I have provided a referral for another one. In 3 days 10/17/2023 With: Address: When: Lori Medina [address] [facility], [place] [address] Business (1) In 3 days In the event that this physician does not participate in your insurance network, please consult with your insurance company to find a nearby participating provider. Patient Education Materials: Acute Knee Pain, Adult, Ddkh-qx-Tycj A MESSAGE TO ALL PATIENTS REGARDING OPIOIDS PRESCRIPTION OPIOIDS: WHAT YOU NEED TO KNOW Prescription opioids can be used to help relieve ywptpisj-hm-mdxhey pain and are often prescribed following a [...] or yo (more content not included)... [facility] XR Knee Complete 4+ Views Le fton [...] mGy = na DAP = na [facility] Screenson 06-17-2023 Screens [id number] #1.00TIFF [facility] Screens [id number] #1.00TIFF [facility] Ambulatory Visit Summaryon 0 06-16-2023 Ambulatory Visit Summary LEIGHTON ARCINIEGA Tyrese :1945 Visit Date:06/16/2023 Ambulatory Visit Instructions Your [...] SANDHU, Mica Johns Where: [facility] Patient Educationon 06-16-19 24 Patient Education Urology [...] these instructions at home: Medicines ? Take iqvm-wnj-knxdktu and prescription medicines only as told by [...] include cig (more content not included)... [facility] Urology Office/Clinic Noteon 06-16-2023 Urology Office/Clinic Note [...] (N52.9: Male erectile dysfunction, unspecified) Hx of CA in 2002. Has pacemaker in place. Denies [...] Information Josep SANDHU, Mica Johns, URL, [facility] [address] [place] [phone] Additional Instructions: Has f/u already scheduled 11/12/23 [...] Amputation, Tonsillectomy. (more content not included)... [facility] Comment on above: Result Comment: Elec tronically Signed By: NATA TA PA-C\.br\Date and Time Signed: 06/16/23 10:56 EDT\.br\Electronically Co-Signed By: Kriss Frankel\.br\Date and Time Co-Signed: 06/16/23 10:48 EDT [place] 05-10-2023 Screens [id number] #1.00TIFF [facility] Screens [id number] #1.00TIFF [facility] Ambulatory Visit Summaryon 0 05-07-2023 [...] NATA TA PA-C Where: [facility] Normal [address] [place] [address]- \.br\ You Need to Schedule the Following Appointments\.br\ Follow Up with NATA TA PA-C, URL When: \.br\ Comments:\.br\ 1 mos w/ PVR \.br\ Where:\.br\ [address]br\ [place] [address]\.br\ [phone]\.br\ Medications\.br\ What How Much When Instructions\.br\ New tadalafil (tadalafil 10 mg Tab) 1 Tablets By Mouth As Directed as needed for for erectile dysfunction Refills: 3 Take one tab 1 hour prior to sexual activity. Do not exceed 20mg in 48hrs. Pickup at [facility] #[id number]\.br\ New tamsulosin (tamsulosin 0.4 mg Cap) 1 Capsules By Mouth Once a day (in the evening) Refills: 11 Pickup at [facility] #61429\.br\ Unchanged acetaminophen (Tylenol Extra Strength 500 mg [...] or concerns \.br\ Pharmacy Information\.br\ [id number]: [address] [place], [place] [id number] [phone]\.br\ Allergies\.br\ Monopril (Dry cough)\.br\ Strawberries (rash)\.br\ Tomatoes [...] Symptoms of this condition include:\.br\ ? \ [facility] Ambulatory Visit Summary LEIGHTON ARCINIEGA :1945 Visit [...] MIGUELITO Richard, URO When: Comments: 6 mos ([facility]) Where: [address] [place] [phone] Medications What How Much When Instructions Unchanged [...] Every da (more content not included)... [facility] Patient Educationon 05-07-19 Patient Education Urology Erectile [...] these instructions at home: Medicines ? Take bhzm-gwk-dxprdzm and prescription medicines only as told by [...] include cig (more content not included)... [facility] Urology Office/Clinic Noteon 05-07-2023 Urology Office/Clinic Note [...] (N52.9: Male erectile dysfunction, unspecified) Hx of CA in 2002. Has pacemaker in place. AMANDA [...] Information Josep SANDHU, Mica Johns, URL, [facility] [address] [place] [phone] Additional Instructions: 1 mos w/ PVR Patient Education Erectile Dysfunction Kriss Heredia, personally scribed for Dr. Car on 05/07/2023 15:06:02. . Documentation recorded by the scribe, Kriss Frankel, accurately reflects the services(s) I performed and decisions made by me. Authenticated by Dr. Car on 05/07/2023 16:05:51. Problem List/Past Medical History Ongoing Anticoagulated Arthritis Aspirin marshall (more content not included)... [facility] Comment on above: Result Comment: Elec tronically Signed By: Mica Car MD\.br\Date and Time Signed: 05/07/23 16:06 EST\.br\Electronically Co-Signed By: Kriss Frankel\.br\Date and Time Co-Signed: 05/07/23 15:08 EST Consent for Treatmenton Consent for Treatment [id number] #1.00TIFF [facility] Consent for Treatment [id number] #1.00TIFF [facility] Consent for Treatment [id number] #1.00TIFF [facility] Hct & Hgbon 04-22-2023 Hematocrit (Bld) [Volume fraction] 39.0 % Normal 37.7-49.0 [facility] Comment on above: Performed By: #### 1 [id number], [id number], [id number], [id number] ####[facility] [address] [place] [address] Hemoglobin (Bld) [Mass/Vol] 12.5 g/dL Low 13.5-17.5 [facility] Comment on above: Performed By: #### 1 [id number], 08779111, 58762823, 2336003 ####[facility] [address] [place] [address] Magnesiumon 04-22-2023 Magnesium [Mass/Vol] 1.7 mg/dL Normal 1.3-2.4 [facility] Comment on above: Performed By: #### 1 [id number], 58556885, 84652971, 1094270 ####[facility] [address] [place] [address] PSA Totalon 04-22-2023 PSA Total 1.6 ng/mL Normal 0.1-3.5 [facility] Comment on above: Result Comment: The concentration of PSA determined by different manufacturers can vary due to differences in assay methods and reagent specificity. Values obtained from different assay methods cannot be used interchangeably. The methodology used for this result was chemiluminescence using [employer]'s [employer] Hybritech PSA reagent. Performed By: #### 1 [id number] ####[facility] [address] [place] [address] Physician Orderon 04-22-2023 Physician Order [id number]#1.00TIFF [facility] Physician Order [id number] 28#1.00TIFF [facility] Renal Panelon 04-22-2023 Albumin [Mass/Vol] 3.9 g/dL Normal 3.3-5.0 [facility] Comment on above: Performed By: #### 1 [id number], 37911950, 93926937, 5653633 ####[facility] [address] [place] [address] Anion gap [Moles/Vol] 11 mmol/L Normal 6-16 [facility] Comment on above: Performed By: #### 1 4715657, 39877117, 70704392, 0505834 ####[facility] [address] [place] [address] BUN/Creat Ratio 15 No Units Normal 10-20 [facility] Comment on above: Performed By: #### 1 3561428, 55545524, 03920819, 6190886 ####[facility] [address] [place] [address] Calcium [Mass/Vol] 9.0 mg/dL Normal 8.9-11.1 [facility] Comment on above: Performed By: #### 1 6363641, 81983927, 89983703, 7777662 ####[facility] [address] [place] [address] Chloride [Moles/Vol] 104 mmol/L Normal 101-111 [facility] Comment on above: Performed By: #### 1 1854378, 08192151, 20159037, 7328395 ####[facility] [address] [place] [address] CO2 [Moles/Vol] 29 mmol/L Normal 21-31 [facility] Comment on above: Performed By: #### 1 5280786, 13545663, 68443579, 9635150 ####[facility] [address] [place] [address] Creatinine [Mass/Vol] 1.7 mg/dL High 0.5-1.3 [facility] Comment on above: Performed By: #### 1 5936391, 29652783, 56362732, 0222213 ####[facility] [address] [place] [address] Glucose [Mass/Vol] 144 mg/dL Normal 55-199 [facility] Comment on above: Performed By: #### 1 7084856, 52749063, 73338124, 0685888 ####[facility] [address] [facility] [place] [place] [address] Phosphate [Mass/Vol] 3.0 mg/dL Normal 1.9-4.6 [facility] Comment on above: Performed By: #### 1 1372910, 42260495, 51871927, 8000875 ####[facility] [address] [place] [address] Potassium [Moles/Vol] 3.9 mmol/L Normal 3.5-5.3 [facility] Comment on above: Performed By: #### 1 3250341, 24382281, 26667723, 9653878 ####[facility] [address] [place] [address] Sodium [Moles/Vol] 140 mmol/L Normal 135-145 [facility] Comment on above: Performed By: #### 1 9144048, 63455013, 82460388, 6122415 ####[facility] [address]Nor[facility] [place] [address] Urea nitrogen [Mass/Vol] 26 mg/dL High 5-21 [facility] Comment on above: Performed By: #### 1 1001290, 81247007, 14415778, 2476823 ####[facility] [address] [place] [address] U Protein/Creat Ratioon 02-0 -2023 U Creatinine 60.9 mg/dL Invalid Interpretation Code [facility] Comment on above: Performed By: #### 1 [id number] ####[facility] [address]Nor[facility] [place] [address] U Prot/Creat Ratio 19.90 mg/gm Cr Normal .00-200.00 [facility] Comment on above: Performed By: #### 1 [id number] ####[facility] [address] [place] [address] Ur Total Protein 12.1 mg/dL Invalid Interpretation Code [facility] Comment on above: Performed By: #### 1 [id number] ####[facility] [address] [place] [address] eGFRon 04-22-2023 eGFR 41 mL/min/1.73 m2 Low >=59 [facility] Comment on above: Order Comment: Order added by Discern Expert. Performed By: #### 1 [id number], 71090055, 29937947, 5166291 ####[facility] [address] [place] [address] Office Visit (Cardiology)on 07-01-2022 Follow-up visit Diagnoses/Problems [...] education sheet. Device check as directed per [facility] protocol Chief Complaint LEIGHTON ARCINIEGA is being [...] battery life but I believe it was production assembly operator error, and not true battery depletion. [...] negative for complaint. Vitals Vital Signs Recorded: [id number] 10: (more content not included)... Normal [employer] Tobacco Screening.on 023 Adult depression screening assessment No [facility] [place] [address] DO Work Phone: Fall risk assessment b) One or more falls in the last year [facility] [place] [address] DO Work Phone: Tobacco use status CPHS b) No [facility] Exelis DO Work Phone: CBC AUTO DIFFon 05-28-2022 BASO # 0.0 103/ul Normal 0.0-0.1 [facility] Comment on above: Performed By: #### C BC #### [facility] [address] [place] [address] [address] Susie Hale Basophils/100 WBC (Bld) 0.5 % Normal 0.2-2.0 [facility] Comment on above: Performed By: #### C BC #### [facility] [address] [place] [address] Dr. Susie Hale EO # 0.1 103/ul Normal 0.0-0.7 [facility] Comment on above: Performed By: #### C BC #### [facility] [address] [place] [address] Dr. Susie Hale Eosinophils/100 WBC (Bld) 1.8 % Normal 0.9-7.0 [facility] Comment on above: Performed By: #### C BC #### [facility] [address] [place] [address] Dr. Susie Hale Erythrocyte distribution width (RBC) [Ratio] 13.0 % Normal 11.0-15.0 [facility] Comment on above: Performed By: #### C BC #### [facility] [address] [place] [address] Dr. Susie Hale Hematocrit (Bld) [Volume fraction] 35.0 % Critically low 42.0-54.0 [facility] Comment on above: Performed By: #### C BC #### [facility] [address] [place] [address] Dr. Susie Hale Hemoglobin (Bld) [Mass/Vol] 12.2 g/dL Critically low 14.0-18.0 [facility] Comment on above: Performed By: #### C BC #### [facility] [address] [place] [address] Dr. Susie Hale IG # 0.05 10e3/ul Critically high 0.00-0.03 [facility] Comment on above: Performed By: #### C BC #### [facility] [address] [place] [address] Dr. Susie Hale IG % 0.8 % Critically high 0.0-0.5 [facility] Comment on above: Performed By: #### C BC #### [facility] [address] [place] [address] Dr. Susie Hale LYMPH # 1.9 103/ul Normal 1.2-3.8 [facility] [place] Comment on above: Performed By: #### C BC #### [facility] [address] [place] [address] Dr. Susie Hale Lymphocytes/100 WBC (Bld) 28.7 % Normal 20.5-60.0 [facility] Comment on above: Performed By: #### C BC #### [facility] [address] [place] [address] Dr. Susie Hale MANUAL DIFF REQ NO Normal [facility] Comment on above: Performed By: #### C BC #### [facility] [address] [place] [address] Dr. Susie Hale MCH (RBC) [Entitic mass] 32.1 pg Normal 25.9-34.0 [facility] Comment on above: Performed By: #### C BC #### [facility] [address] [place] [address] Dr. Susie Hale MCHC (RBC) [Mass/Vol] 34.9 g/dL Normal 29.9-35.2 [facility] Comment on above: Performed By: #### C BC #### [facility] [address] [place] [address] Dr. Susie Hale MCV (RBC) [Entitic vol] 92.1 fL Normal 80.0-94.0 [facility] Comment on above: Performed By: #### C BC #### [facility] [address] [place] [address] Dr. Susie Hale MONO # 0.7 103/ul Normal 0.3-0.8 [facility] Comment on above: Performed By: #### C BC #### [facility] [address] [place] [address] Dr. Susie Hale Monocytes/100 WBC (Bld) 10.9 % Normal 1.7-12.0 [facility] Comment on above: Performed By: #### C BC #### [facility] [address] [place] [address] Dr. Susie Hale NEUT # 3.7 103/ul Normal 1.4-6.5 [facility] Comment on above: Performed By: #### C BC #### [facility] [address] [address] [address] Susie Hale Neutrophils/100 WBC (Bld) 57.3 % Normal 43.0-75.0 [facility] Comment on above: Performed By: #### C BC #### [facility] [address] [place] [address] Dr. Susie Hale Platelet mean volume (Bld) [Entitic vol] 8.5 fL Critically low 9.5-13.5 [facility] Comment on above: Performed By: #### C BC #### [facility] [address] [place] [address] Dr. Susie Hale PLT 238 103/ul Normal 150-450 [facility] Comment on above: Performed By: #### C BC #### [facility] [address] [place] [address] Dr. Susie Hale RBC 3.80 106/ul Critically low 4.70-6.10 [facility] Comment on above: Performed By: #### C BC #### [facility] [address] [place] [address] Dr. Susie Hael WBC 6.5 103/ul Normal 4.0-11.0 [facility] Comment on above: Performed By: #### C BC #### [facility] [address] [place] [address] STROKE HEAD WOon [...] MAILE CANO Date: 2022-05-28 18:17 Normal [facility] PROF 14(COMP METB)on 023 Albumin [Mass/Vol] 3.5 g/dL Normal 3.4-5.0 [facility] Comment on above: Performed By: #### C MP #### [facility] [address] [place] [address] Dr. Susie Hale Albumin/Globulin [Mass ratio] 1.1 {ratio} Normal [facility] Comment on above: Performed By: #### C MP #### [facility] [address] [place] [address] Dr. Susie Hale ALP [Catalytic activity/Vol] 87 U/L Normal 46-116 [facility] Comment on above: Performed By: #### C MP #### [facility] [address] [place] [address] Dr. Susie Hale ALT [Catalytic activity/Vol] 16 U/L Normal 16-63 [facility] Comment on above: Performed By: #### C MP #### [facility] [address] [place] [address] Dr. Susie Hale Anion gap [Moles/Vol] 10.0 mmol/L Normal [facility] Comment on above: Performed By: #### C MP #### [facility] [address] [place] [address] Dr. Susie Hale AST [Catalytic activity/Vol] 14 U/L Critically low 15-37 [facility] Comment on above: Performed By: #### C MP #### [facility] [address] [place] [address] Dr. Susie Hale Bilirubin [Mass/Vol] 0.2 mg/dL Normal 0.2-1.0 [facility] Comment on above: Performed By: #### C MP #### [facility] [address] [address] [address] Susie Hale Calcium [Mass/Vol] 8.9 mg/dL Normal 8.5-10.1 [facility] Comment on above: Performed By: #### C MP #### [facility] [address] [address] [address] Susie Hale Chloride [Moles/Vol] 105 mmol/L Normal 98-107 [facility] Comment on above: Performed By: #### C MP #### [facility] [address] [place] [address] Dr. Susie Hale CO2 [Moles/Vol] 25.7 mmol/L Normal 21.0-32.[address] [facility] Comment on above: Performed By: #### C MP #### [facility] [address] [place] [address] Dr. Susie Hale Creatinine [Mass/Vol] 1.87 mg/dL Critically high 0.70-1.30 [facility] Comment on above: Performed By: #### C MP #### [facility] [address] [place] [address] Dr. Susie Hale EGFR-AF CHINESE 43 mL/min/1.73m2 Critically low >=60 [facility] Comment on above: Performed By: #### C MP #### [facility] [address] [place] [address] Dr. Susie Hale EGFR-NON AF CHINESE 35 mL/min/1.73m2 Critically low >=60 [facility] Comment on above: Performed By: #### C MP #### [facility] [address] [place] [address] Dr. Susie Hale Globulin (S) [Mass/Vol] 3.2 g/dL Normal [facility] Comment on above: Performed By: #### C MP #### [facility] [address] [place] [address] Dr. Susie Hale Glucose [Mass/Vol] 256 mg/dL Critically high 74-106 [facility] Comment on above: Performed By: #### C MP #### [facility] [address] [address] [address] Susie Hale Potassium [Moles/Vol] 3.7 mmol/L Normal 3.5-5.1 [facility] Comment on above: Performed By: #### C MP #### [facility] [id number] Susie Hale Protein [Mass/Vol] 6.7 g/dL Normal 6.4-8.2 [facility] Comment on above: Performed By: #### C MP #### [facility] [address] [address] [address] Susie Hale Sodium [Moles/Vol] 137 mmol/L Normal 136-145 [facility] Comment on above: Performed By: #### C MP #### [facility] [address] [address] [address] Susie Hale Urea nitrogen [Mass/Vol] 22.0 mg/dL Critically high 7.0-18.0 [facility] Comment on above: Performed By: #### C MP #### [facility] [phone] Susie Hale Urea nitrogen/Creatinin e [Mass ratio] 11.8 mg/mg Normal [facility] Comment on above: Performed By: #### C MP #### [facility] [id number] Susie Hale Office Visit (Cardiology)on 12-16-2021 [...] in adult Healthy Weight Tips; Status:Complete; Done: [id number] Some eating tips that can help you lose weight.; Status:Complete; Done: [id number] Essential hypertension Renew: Carvedilol 6.25 MG Oral Tablet; Take 1 tablet twice daily Hyperlipidemia Renew: Simvastatin 20 MG Oral Tablet; TAKE 0.5 TABLET Bedtime SocHx: Former smoker Tobacco Use Screening; Status:Complete; Done: [id number] Unlinked Stop: Aspirin 325 MG Oral Tablet [...] your visit. Device check as directed per [facility] protocol Follow up in 6-9 months Chief [...] Screening.on 022 Adult depression screening assessment No [facility] 600 DO Work Phone: Fall risk assessment a) No falls within the last year [facility] 600 DO Work Phone: Tobacco use status CP b) No -[facility] 600 DO Work Phone: Tobacco Screening.on 021 Fall risk assessment a) No falls within the last year [facility] 250 DO Work Phone: Tobacco use status CP b) No [facility] 250 DO Work Phone: Vital Signs Date Time Vital Sign Value Performing Clinician Faci lity 03-01-2024 11:12-0500 Body height 177.8 cm Osvaldo Dickinson MD Work Phone: [facility] 03-01-2024 11:12-0500 Body mass index (BMI) [Ratio] 30.13 kg/m2 Osvaldo Dickinson MD Work Phone: [facility] 03-01-2024 11:12-0500 Body weight 95.25 kg Osvaldo Dickinson MD Work Phone: [facility] 03-01-2024 11:12-0500 Diastolic blood pressure 54 mm[Hg] Osvaldo Dickinson MD Work Phone: [facility] 03-01-2024 11:12-0500 Heart rate 71 /min Osvaldo Dickinson MD Work Phone: [facility] 03-01-2024 11:12-0500 Systolic blood pressure 114 mm[Hg] Osvaldo Dickinson MD Work Phone: [facility] 12-14-2023 13:17-0400 Diastolic blood pressure 70 mm[Hg] Dank Jones DO Work Phone: [facility] 12-14-2023 13:17-0400 Heart rate 68 /min Dank Robert DO Work Phone: [facility] 12-14-2023 13:17-0400 SaO2% (BldA) [Mass fraction] 97 % Dank Robert DO Work Phone: [facility] 12-14-2023 13:17-0400 Systolic blood pressure 152 mm[Hg] Dank Robert DO Work Phone: [facility] 08-25-2023 12:12-0400 Body height 177.8 cm Varghese Caal MD Work Phone: [facility] 08-25-2023 12:12-0400 Body mass index (BMI) [Ratio] 33.43 kg/m2 Varghese Caal MD Work Phone: [facility] 08-25-2023 12:12-0400 Body weight 105.69 kg Varghese Caal MD Work Phone: [facility] 08-25-2023 12:12-0400 Diastolic blood pressure 54 mm[Hg] Varghese Caal MD Work Phone: [facility] 08-25-2023 12:12-0400 Heart rate 60 /min Varghese Caal MD Work Phone: [facility] 08-25-2023 12:12-0400 Systolic blood pressure 126 mm[Hg] Varghese Caal MD Work Phone: [facility] 02-10-2023 11:37-0500 Body height 177.8 cm Varghese Caal MD Work Phone: [facility] 02-10-2023 11:37-0500 Body mass index (BMI) [Ratio] 32.28 kg/m2 Varghese Caal MD Work Phone: [facility] 02-10-2023 11:37-0500 Body weight 102.06 kg Varghese Caal MD Work Phone: [facility] 02-10-2023 11:37-0500 Diastolic blood pressure 58 mm[Hg] Varghese Caal MD Work Phone: [facility] 02-10-2023 11:37-0500 Heart rate 63 /min Varghese Caal MD Work Phone: [facility] 02-10-2023 11:37-0500 Systolic blood pressure 120 mm[Hg] Varghese Caal MD Work Phone: [facility] 07-01-2022 10:54-0400 Body height 177.8 cm Andrea Espinoza Work Phone: [facility] 600 DO Work Phone: 07-01-2022 10:54-0400 Body mass index (BMI) [Ratio] 32.71 kg/m2 Andrea Amanda Espinoza Work Phone: [facility] 600 DO Work Phone: 07-01-2022 10:54-0400 Body surface area Derived from formula 2.21 m2 Andrea Espinoza Work Phone: [facility] 600 DO Work Phone: 07-01-2022 10:54-0400 Body weight 103.42 kg Andrea Espinoza Work Phone: [facility] 600 DO Work Phone: 07-01-2022 10:54-0400 Diastolic blood pressure 64 mm[Hg] Andrea Amanda Espinoza Work Phone: [facility] 600 DO Work Phone: 07-01-2022 10:54-0400 Heart rate 72 /min Andrea Patel Pedroemmazulay Work Phone: [facility] 600 DO Work Phone: 07-01-2022 10:54-0400 Systolic blood pressure 118 mm[Hg] Andrea Espinoza Work Phone: [facility] 600 DO Work Phone: 12-16-2021 11:08-0400 Body height 177.8 cm Andrea Espinoza Work Phone: [facility] 600 DO Work Phone: 12-16-2021 11:08-0400 Body mass index (BMI) [Ratio] 33.86 kg/m2 Andrea Espinoza Work Phone: [facility] 600 DO Work Phone: 12-16-2021 11:08-0400 Body surface area Derived from formula 2.24 m2 Andrea Espinoza Work Phone: [facility] 600 DO Work Phone: 12-16-2021 11:08-0400 Body weight 107.05 kg Andrea Espinoza Work Phone: [facility] 600 DO Work Phone: 12-16-2021 11:08-0400 Diastolic blood pressure 64 mm[Hg] Andrea Epsinoza Work Phone: [facility] 600 DO Work Phone: 12-16-2021 11:08-0400 Heart rate 72 /min Andrea Espinoza Work Phone: [facility] 600 DO Work Phone: 12-16-2021 11:08-0400 Systolic blood pressure 132 mm[Hg] Andrea Espinoza Work Phone: [facility] 600 DO Work Phone: 01-22-2021 14:36-0400 Body height 177.8 cm Andrea Espinoza Work Phone: [facility] 250 DO Work Phone: 01-22-2021 14:36-0400 Body mass index (BMI) [Ratio] 34.01 kg/m2 Andrea Espinoza Work Phone: [facility] 250 DO Work Phone: 01-22-2021 14:36-0400 Body surface area Derived from formula 2.24 m2 Andrea Espinoza Work Phone: [facility] 250 DO Work Phone: 01-22-2021 14:36-0400 Body weight 107.5 kg Andrea Espinoza Work Phone: [facility] 250 DO Work Phone: 01-22-2021 14:36-0400 Diastolic blood pressure 54 mm[Hg] Andrea Espinoza Work Phone: [facility] 250 DO Work Phone: 01-22-2021 14:36-0400 Heart rate 76 /min Andrea Espinoza Work Phone: [facility] 250 DO Work Phone: 01-22-2021 14:36-0400 Systolic blood pressure 104 mm[Hg] Andrea Espinoza Work Phone: [facility] 250 DO Work Phone: Encounters Encounter Date Encounter Type Care Provider Facility Start: 05-18-2024 ambulatory Mica M. Dayane Facility:[facility] Start: 05-12-2024 ambulatory Mica M. Lue Facility:[facility] Start: 04-26-2024 End: 04-26-2024 ambulatory Mica M. Dayane Facility:[facility] Start: 04-25-2024 End: 04-25-2024 ambulatory Deepti Powell Facility:[facility] Start: 04-25-2024 End: 04-25-2024 ambulatory Mica Hanleye Facility:[facility] Start: 04-12-2024 End: 04-12-2024 ambulatory Mica Car Facility:[facility] Start: 04-06-2024 End: 04-06-2024 ambulatory Mica Car Facility: [place] Start: 03-28-2024 End: 03-28-2024 ambulatory Benton Vasquez [facility] Work Phone: Start: 03-28-2024 End: 03-28-2024 Departed Referred Benton Vasquez [facility] Start: 03-24-2024 End: 03-24-2024 ambulatory Mica Car Facility:[facility] Start: 03-11-2024 End: 03-11-2024 ambulatory Benton Valdezdarien Facility:[facility] Start: 03-11-2024 End: 03-11-2024 Departed Referred Benton Vasquez [facility] Start: 03-02-2024 End: 03-02-2024 ambulatory NATA TA Facility:[facility] Start: 03-01-2024 End: 03-01-2024 Office outpatient visit 25 minutes Osvaldo Dickinson MD Work Phone: [facility] Comment on above: Paroxysmal atrial fi brillation (Multi) (Primary Dx); Sick sinus syndrome (Multi); Pacemaker; Essential hypertension; Cardiomyopathy, unspecified type (Multi); Mixed hyperlipidemia; Stage 4 chronic kidney disease (Multi); Non-smoker; BMI 30.0-30.9,adult Start: 03-01-2024 End: 03-01-2024 ambulatory [facility] Start: 02-19-2024 End: 02-19-2024 Emergency department patient visit [facility] Start: 02-18-2024 End: 02-18-2024 ambulatory Mica Car Facility:[facility] [place] Start: 02-14-2024 End: 02-14-2024 ambulatory Mica Car Facility:[facility] Start: 01-31-2024 End: 01-31-2024 ambulatory Anna Sr Facility:[facility] [place] Start: 01-24-2024 End: 01-24-2024 Emergency department patient visit BOBO BRENNER [facility] Start: 01-17-2024 End: 01-17-2024 Office outpatient visit 25 minutes Blanca Alonso MD Work Phone: [facility] Comment on above: Other atopic dermati tis (Primary Dx); Seborrheic keratosis; Lentigines; History of SCC (squamous cell carcinoma) of skin Start: 01-17-2024 End: 01-17-2024 ambulatory BLANCA ALONSO Not Available Start: 12-27-2023 End: 12-27-2023 ambulatory Mica Car Facility:[facility] Start: 12-14-2023 End: 12-14-2023 Bamboo flowsheet Dank Robert DO Work Phone: [facility] [place] [address] Start: 12-14-2023 End: 12-14-2023 Bamboo flowsheet Dank Robert DO Work Phone: [facility] [place] [address] Start: 12-14-2023 End: 12-14-2023 Office outpatient visit 25 minutes Dank Robert DO Work Phone: [facility] [address] Comment on above: VIRGILIO (obstructive sle ep apnea) (Primary Dx); Hypersomnia; PLMD (periodic limb movement disorder); Obesity due to excess calories, unspecified classification, unspecified whether serious comorbidity present; Snoring Start: 12-14-2023 End: 12-14-2023 ambulatory DANK ROBERT Not Available Start: 12-09-2023 End: 12-09-2023 ambulatory Varghese Caal Facility:[facility] Start: 11-12-2023 End: 11-12-2023 ambulatory Mica Car [facility] Start: 10-14-2023 End: 10-14-2023 Emergency department patient visit Vini Quinteros Facility:[facility] Start: 10-14-2023 ambulatory Barb Loza Fa cility:[facility] Start: 08-31-2023 End: 08-31-2023 ambulatory BLANCA ALONSO Not Available Start: 08-25-2023 End: 08-25-2023 Office outpatient visit 25 minutes Varghese Caal MD Work Phone: [facility] Comment on above: Essential hypertensi on (Primary Dx); Sick sinus syndrome (Multi); Mixed hyperlipidemia; Paroxysmal atrial fibrillation (Multi); Dilated cardiomyopathy (Multi); Pacemaker; BMI 33.0-33.9,adult Start: 08-25-2023 End: 08-25-2023 ambulatory VARGHESE CAAL [facility] Start: 08-10-2023 End: 08-10-2023 ambulatory BLANCA A PETITTI Not Available Start: 06-16-2023 End: 06-16-2023 ambulatory NAPOLEON TA Facility:[facility] Start: 05-07-2023 End: 05-07-2023 ambulatory Mica Car Facility:[facility] Start: 04-22-2023 End: 04-22-2023 ambulatory Varghese Caal Facility:[facility] Start: 03-19-2023 End: 03-19-2023 ambulatory BLANCA PETITTI Not Available Start: 03-05-2023 End: 03-05-2023 ambulatory BLANCA A PETITTI Not Available Start: 02-10-2023 End: 02-10-2023 Office outpatient visit 25 minutes Varghese Caal MD Work Phone: [facility] Comment on above: Sick sinus syndrome (CMS/HCC) (Primary Dx); Mobitz type II atrioventricular block; Pacemaker; Essential hypertension; Dilated cardiomyopathy (CMS/HCC); Paroxysmal atrial fibrillation (CMS/HCC) Start: 10-22-[address] Andrea Espinoza Facility: Start: 07-01-2022 Office outpatient vi sit 25 minutes Andrea Espinoza Work Phone: [facility] 600 DO Work Phone: Start: 07-01-[address] Varghese Caal II Facility: Start: 05-28-2022 End: 05-28-[address] TRINO Lange Facility: Start: 05-14-2022 End: 05-15-2022 ambulatory MARIXA ROY Facility:[facility] Start: 04-23-[address] Andrea Espinoza Facility: Start: 12-31-2021 Rx Renewal Andrea Espinoza Work Phone: [facility] 250 DO Work Phone: Start: 12-16-2021 Office outpatient vi sit 25 minutes Andrea Espinoza Work Phone: [facility] 600 DO Work Phone: Start: 12-16-[address] [facility] [facility] Facility: Start: 01-22-2021 Office outpatient vi sit 25 minutes Andrea Espinoza Work Phone: [facility] 250 DO Work Phone: Procedures Date Procedure [...] DTaP/Tdap/Td Vaccines (2 - Td or Tdap) [facility] Start: 01-25-2025 End: 01-25-2025 Patient encounter procedure 01/25/2025 1:05 PM EST Office Visit [facility] [address] [place] [address] Blanca Alonso MD [address] [place] [address] [facility] Start: 12-12-2024 End: 12-12-2024 Patient encounter procedure 12/12/2024 1:00 PM EDT Office Visit [facility] [address] [place] [phone] Rox Cervantes NP [address] [place] [address] [facility] [place] [facility] Start: 11-28-2024 Glaucoma screening Diabetes: R etinopathy Screening [facility] Start: 11-07-2024 End: 11-07-2024 Patient encounter procedure 11/07/2024 10:30 AM EDT Office Visit [place] [address] [place] [address] Osvaldo Dickinson MD [address] [place] [facility] [place] [address] [facility] Start: 03-28-2024 Urine culture [facility] Start: 03-28-2024 Bacteria identified in Urine by Culture Urine Culture [facility] Start: 03-01-2024 End: 03-01-2024 Patient encounter procedure 03/01/2024 11:00 AM EST Office [address] [place] [address] Osvaldo Dickinson MD [address] [place] [facility] [place] [address] [facility] Start: 01-17-2024 End: 01-17-2024 Patient encounter procedure 01/17/2024 3:15 PM EDT Office Visit [facility] [address] [place] [id number] Blanca Alonso MD [address] [place], [place] [id number] [facility] Start: 12-14-2023 End: 12-14-2023 Patient encounter procedure 12/14/2023 1:30 PM EDT Office Visit [facility] [address] [place] [phone] Dank Jones DO [address] [place], [place] [id number] Arrived [facility] Comment on above: Arrived Start: 12-01-2023 Glaucoma screening Diabetes: R etinopathy Screening [facility] Start: 08-25-2023 End: 08-25-2023 Patient encounter procedure 08/25/2023 11:40 AM EDT Office Visit [address] [place] [address] Varghese Caal MD [address] [place] [facility] [address] [place] [address] [facility] Start: 06-05-2023 COVID-19 Vaccine ( season) COVID-19 Vaccine ( season) [facility] Start: 04-01-2023 COVID-19 Vaccine (6 - Moderna series) COVID-19 Vaccine (6 - Moderna series) [facility] Start: 02-10-2023 FUV, Provider: Varghese Caal, Status: Pen, Time: 11:30 AM FUV, Provider: Varghese Caal, Status: Pen, Time: 11:[address] [facility] 600 DO Work Phone: Start: 07-01-2022 FUV, Provider: Varghese Caal, Status: Pen, Time: 10:40 AM FUV, Provider: Varghese Caal, Status: Pen, Time: 10:[address] [facility] DO Work Phone: Start: 09-10-2021 FUV, Provider: Varghese Caal, Status: Pen, Time: 2:30 PM FUV, Provider: Varghese Caal, Status: Gianni, Time: 2:30 PM [facility] 250 DO Work Phone: Start: 2020 RSV High Risk: (Elde rly (60+) or Population) (1 - 1-dose 75+ series) RSV High Risk: (Elderly (60+) or Population) (1 - 1-dose 75+ series) [facility] Start: 05-09-2020 Echocardiography Echocardiogram [facility] Start: 2005 RSV patient s and/or patients aged 60+ years (1 - 1-dose 60+ series) RSV patients and/or patients aged 60+ years (1 - 1-dose 60+ series) [facility] Start: 11-26-1995 Zoster Vaccines (1 of 2) Zoste r Vaccines (1 of 2) [facility] Start: 1964 Urine screening for protein Diabetes: Urine Protein Screening [facility] Start: 11-26-1963 Hepatitis C screening Hepatitis C Sc reening [facility] Start: 11-26-1955 Diabetic foot examination Diabetes: Foot Exam [facility] Start: 11-26-1955 Glaucoma screening Diabetes: R etinopathy Screening [facility] Start: 1945 Creatinine measurement Creatinine Le sarah [facility] Start: 1945 Hemoglobin A1c measurement Jennifer betes: Hemoglobin A1C [facility] Start: 1945 Lipid panel Lipid Panel [facility] Start: 1945 Medicare Annual Well ness Visit Medicare Annual Wellness Visit (AWV) [facility] Start: 1945 Potassium measurement Potassium Leve l [facility] Immunizations Immunization Date Immunization Notes Care Provider Severo sneed 01-14-2022 Fluad Quadrivalent 0 .5 ML Intramuscular Prefilled Syringe Andrea Espinoza Work Phone: [facility] 600 DO Work Phone: 01-14-2022 Pfizer COVID-19 Vac Bivalent 30 MCG/0.3ML Intramuscular Suspension Andrea Espinoza Work Phone: [facility] 600 DO Work Phone: 09-03-2021 pneumococcal conjuga te vaccine, 13 valent Dank Robert DO Work Phone: [facility] 02-15-2021 Moderna COVID-19 Vac cine 100 MCG/0.5ML Intramuscular Suspension Andrea Vasquezro Work Phone: [facility] 600 DO Work Phone: 01-30-2021 influenza virus vacc ine, unspecified formulation Andrea Vasquezro Work Phone: [facility] 600 DO Work Phone: 11-28-2020 influenza, high dose seasonal, preservative-free Andrea L DeGroh Work Phone: [facility] 250 DO Work Phone: Comment on above: Series: 06-20-2020 Moderna COVID-19 Vac cine 100 MCG/0.5ML Intramuscular Suspension Andrea Vasquezroh Work Phone: [facility] 600 DO Work Phone: 05-20-2020 Moderna COVID-19 Vac cine 100 MCG/0.5ML Intramuscular Suspension Andrea Vasquezrozulay Work Phone: [facility] 250 DO Work Phone: Comment on above: Series: 04-25-2020 Moderna COVID-19 Vac cine 100 MCG/0.5ML Intramuscular Suspension Andrea Patel DeGro Work Phone: [facility] 250 DO Work Phone: Comment on above: Series: 12-21-2019 influenza virus vacc ine, unspecified formulation Andrea L DeGroh Work Phone: [facility] 600 DO Work Phone: 12-20-2018 influenza, high dose seasonal, preservative-free Andrea L DeGroh Work Phone: [facility] 02-19-2018 influenza virus vacc ine, unspecified formulation Andrea Espinoza Work Phone: [facility] 600 DO Work Phone: 02-19-2018 pneumococcal polysaccharide vaccine, 23 valent Andrea Espinoza Work Phone: [facility] 250 DO Work Phone: Comment on above: Series: 02-19-2018 pneumococcal vaccine , unspecified formulation Andrea Espinoza Work Phone: [facility] 02-18-2017 Influenza, injectabl e, Madin Lakisha Canine Kidney, preservative free, quadrivalent Andrea Espinoza Work Phone: [facility] 600 DO Work Phone: 11-24-2016 influenza, high dose seasonal, preservative-free Andrea Espinoza Work Phone: [facility] 600 DO Work Phone: 12-21-2015 pneumococcal conjuga te vaccine, 13 valent Andrea Espinoza Work Phone: [facility] 250 DO Work Phone: Comment on above: Series: Payers Date Payer Category Payer Self-pay 2022 Medicare [id number] 2022 [employer] ( and others) [id number] 2022 (KENNETH) [id number] 2022 For Life (TFL) F OR LIFE [id number]. [id number] 2022 [employer] ( and others) [id number] 2010 Medicare [id number]. 1.13.647. [id number] 1959 [employer] ( and others) [id number] 1959 Medicare [id number] 1945 Unknown [id number] 2.840.1.416228.3.579. 2.593 1945 Unknown [id number] 2.840.1.074387.3.579. 2.593 1945 Unknown [id number] 2.16840.1.909207.3.579. 2.356 1945 Unknown [id number] 2.16840.1.051321.3.579. 2.356 1945 Unknown [id number] 2.16840.1.002661.3.579. 2.356 1945 Unknown [id number] 2.16840.1.178054.3.579. 2.356 1945 Unknown [id number] 2.16840.1.790580.3.579. 2.727 1945 Unknown [id number] 2.16.840.1.978186.3.579. 2.72 1945 Unknown [id number] 2.16.840.1.671621.3.579. 2.72 1945 Unknown [id number] 2.16.840.1.003405.3.579. 2. 1945 Unknown [id number] 2.16.840.1.250025.3.579. 2.72 1945 Unknown [id number] 2.16.840.1.534835.3.579. 2. 1945 Unknown [id number] 2.16.840.1.788203.3.579. 2. 1945 Unknown [id number] 2.16840.1.078600.3.579. 2. 1945 Unknown [id number] 2.16840.1.154517.3.579. 2.1258 1945 Unknown [id number] 2.16840.1.402421.3.579. 2.1258 1945 Unknown [id number] 2.16.840.1.873179.3.579. 2.1258 1945 Unknown [id number] 2.16840.1.948735.3.579. 2.1258 1945 Unknown [id number] 2.16.840.1.071844.3.579. 2.1258 1945 Unknown [id number] 2.16.840.1.713597.3.579. 2.1258 1945 Unknown [id number] 2.16.840.1.586372.3.579. 2.1286 1945 Unknown [id number] 2.16.840.1.576426.3.579. 2.128 1945 Unknown [id number] 2.16.840.1.700799.3.579. 2.1244 1945 Unknown [id number] 2.16.840.1.951351.3.579. 2.1244 1945 Unknown [id number] 2.16.840.1.536504.3.579. 2.727 1945 Unknown [id number] 2.16.840.1.971958.3.579. 2.72 1945 Unknown [id number] 2.16.840.1.656993.3.579. 2.72 1945 Unknown [id number] 2.16.840.1.117711.3.579. 2.72 1945 Unknown [id number] 2.16.840.1.586384.3.579. 2.72 1945 Unknown [id number] 2.16.840.1.358096.3.579. 2.72 1945 Unknown [id number] 2.16.840.1.616120.3.579. 2.72 1945 Unknown [id number] 2.16.840.1.251812.3.579. 2.72 1945 Unknown [id number] 2.16.840.1.804593.3.579. 2.72 1945 Unknown [id number] 2.16.840.1.208908.3.579. 2.72 1945 Unknown [id number] 2.16.840.1.833412.3.579. 2.72 1945 Unknown [id number] 2.16.840.1.045131.3.579. 2.72 1945 Unknown [id number] 2.16.840.1.797234.3.579. 2.72 1945 Unknown [id number] 2.16.840.1.213698.3.579. 2.727 1945 Unknown [id number] 2.16.840.1.926086.3.579. 2.727 Unknown Unknown [id number] 2.16.840.1.288010.3.579. 2.531 Unknown [id number] 2.16.840.1.545526.3.579. 2.531 Social History Date Type Detail Facility Start: 02-10-2023 End: 12-14-2023 No illicit drug use No illicit drug use -[facility] 250 DO Work Phone: Comment on above: quit , 1 PPD; Start: 02-10-2023 End: 08-25-2023 Tobacco smoking status NHIS Ex-smoker [facility] Work Phone: End: 03-22-1992 History of tobacco use Current smoker [facility] Work Phone: End: 03-22-1992 History of tobacco use Cigarette Smoker [facility] Work Phone: Start: 10-11-2022 End: 02-10-2023 Tobacco use and exposure Smokeless tobacco non-user [facility] Work Phone: Start: 02-10-2023 End: 12-14-2023 Alcohol intake Lifetime non-drinker (finding) [facility] Work Phone: Start: 02-10-2023 End: 12-14-2023 Tobacco use panel [facility] Work Phone: Start: 1945 Sex Assigned At Not on file U [facility] Work Phone: Start: 01-31-2023 End: 03-01-2024 Exposure to SARS-CoV-2 (event) Not sure [facility] Start: 10-11-2022 [facility] smoked [facility] Work Phone: Start: 03-30-2024 Sex Patient sex un known (finding) [facility] Start: 1945 Sex Assigned At Male F [facility] Clinical Notes 05-14-2022 to 04-26-2024 Osvaldo Dickinson MD - 03/01/2024 11:00 AM ESTPatient InstructionsBlanca Alonso MD - 01/17/2024 3:15 PM Letty Jones DO - 12/14/2023 1:30 PM EDTPatient InstructionsPatient Instructions Note Date & Type Note Facility 04-26-2024 Note Patient Education Urology Indwelling Urinary Catheter Insertion For people with certain conditions, urine is not able to move normally through the urethra. The urethra is the part of the body that drains urine from the bladder. An indwelling urinary catheter may be needed if you have urinary retention problems or bladder obstruction. It may also be needed during and after surgical procedures and for other medical conditions. An indwelling urinary catheter is a thin, germ-free (sterile) tube that is placed into the bladder through the urethra to help drain urine out of the body. After the catheter is inserted, it is held in place by a small balloon on the catheter. The small balloon is filled with sterile water. Urine drains from the catheter into a drainage bag outside of the body. Tell a health care provider about: ??? Any allergies you have. ??? Any surgeries you have had. ??? Any medical conditions you have. ??? Any bleeding problems you have. What are the risks? Generally, this is a safe procedure. However, problems may occur, including: ??? Infection. ??? Bleeding. ??? Damage to nearby structures or organs. What happens before the procedure? Your health care provider will inspect your urethra before inserting the catheter. ??? Ask your health care provider what steps will be taken to help prevent infection. These steps may include washing your skin with a germ-killing soap. What happens during the procedure? A lubricant will be placed on the catheter to make it easy to insert it into the urethra. ??? The catheter will be inserted into the urethra until you can see urine flowing into the drainage bag. After the urine starts to flow, the catheter may be inserted another couple of inches (about 5 cm). ??? Sterile water will be used to inflate the balloon to hold the catheter in place. ??? After the catheter balloon is inflated, it will be pulled back so it is against the narrow opening at the end of the bladder. ??? Your health care provider will check for urine flow into the drainage bag. The procedure may vary among health care providers and hospitals. What happens after the procedure? Urine in the drainage bag will be emptied and measured by your health care provider while you are in the hospital. ??? Your health care provider will remove the catheter for you. This will be done when the catheter is no longer necessary, which is likely to be before you leave the hospital. Summary ??? An indwelling catheter is a sterile tube that is placed into the bladder through the urethra to help drain urine out of the body. ??? The catheter will be removed when it is no longer needed. This information is not intended to replace advice given to you by your health care provider. Make sure you discuss any questions you have with your health care provider. Document Revised: 11/05/2021 Document Reviewed: 11/05/2021 [employer] Patient Education ? 2023 [employer]. [facility] 04-12-2024 Note Patient Education Urology Benign Prostatic [...] Follow these instructions at home: ??? Take yfgc-mel-qzssobe and prescription medicines only as told by [...] do not get (more content not included)... [facility] 03-02-2024 Note Patient Education Urology Acute Urinary [...] these instructions at home: Medicines ??? Take zgaq-swr-ztgpizm and prescription medicines only as told by [...] provider. Document Revised: 11/27/2020 Document Reviewed: 11/27/2020 [employer] Patient Education ? 2023 [employer]. [facility] 03-01-2024 History of Present illness Narrative Kaitlyn [...] to retrieve his recent lab work from [facility] 5. I will see him back [...] Scribe Attestation By signing my name below, eBtzaida Heredia LPN, Scribe attest that this documentation [...] discussion and plan. documented in this encounter [facility] Work Phone: 03-01-2024 Instructions Betzaida Denney [...] instructions on exercise. documented in this encounter [facility] Work Phone: 02-14-2024 Note Patient Education [...] to the c (more content not included)... [facility] 01-31-2024 Note Patient Education Urology Acute Urinary [...] these instructions at home: Medicines ??? Take rtyn-hte-aepwwlo and prescription medicines only as told by [...] provider. Document Revised: 11/27/2020 Document Reviewed: 11/27/2020 [employer] Patient Education ? 2023 [employer]. Benign Prostatic Hyperplasia Benign prostatic hyperplasia (BPH) is an enlarged prostate gland that is caused by the normal aging proc (more content not included)... [facility] 01-17-2024 History of Present illness Narrative Images [...] given intertriginous involvement, topical steroids contraindicated for salvage determiner use in this area and he has [...] Visit: 1 year documented in this encounter [facility] 12-27-2023 Note Progress Note-Asaf tapia Patient: LEIGHTON [...] day(s), # 6 tab(s), Refills(s) 0, Pharmacy: [facility] #[id number], 177, cm, 12/27/23 11:02:00 EDT, Height/Length Dosing, 104, kg, 12/27/23 11:02:00 EDT, Weight Dosing [place] 325 mg-5 mg oral tablet: 1 tab(s), Oral, q6hr for pain, 4 tab(s), Refill(s) 0, Take 1 tablet an hour before procedure, post procedure prn, [facility] #[id number], 177, cm, 12/27/23 11:02:00 EDT, Height/Length Dosing, 104, kg, 12/27/23 11:02:00 EDT, Weight Dosing sildenafil 100 mg Tab: 100 mg = 1 tab(s), Oral, As Directed, PRN for erectile dysfunction, Take one tab 1 hour prior to sexual activity., # 30 tab(s), Refills(s) 3, Pharmacy: [facility] #[id number], 177.8, cm, 06/16/23 10:18:00 EDT, Height/Length Dosing, 104.8, kg, 06/16/23 10:18:... terazosin 10 mg Cap: 10 mg = 1 cap(s), Oral, Once a day (at bedtime), # 90 cap(s), Refills(s) 3, Pharmacy: [facility], 177, cm, 12/27/23 11:02:00 EDT, Height/Length Dosing, 104, kg, 12/27/23 11:02:00 EDT, Weight Dosing traMADOL 50 mg Tab: 50 mg = 1 tab(s), Oral, q6hr, Take as needed for pain., # 6 tab(s), Refills(s) 0, Pharmacy: [facility] #[id number], 177.8, cm, 11/12/23 15:35:00 EDT, Height/Length Dosing, [...] Plan: Diagnosis: Prostate hyperplasia with urinary obstruction (ULW10-QQ N40.1, Discharge, Medical), Feeling of incomplete bladder emptying (PAA97-VU R39.14, Working, Medical), Anticoagulated (UBQ10-FZ Z79.01, Discharge, Medical). 78 yo male here [...] and Valium prior to procedure. 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 The procedural risks, benefits, details, and treatment alternatives have been discussed with the patient. These include bleeding, infection, continued problems urinating, increased frequency with urgency during the healing process, painful urination, need for indwelling cathete (more content not included)... [facility] Comment on above: Result Comment: Elec tronically [...] you have a fever over 100 degrees. [facility] 12-14-2023 History of Present illness Narrative Images [...] Actinic keratosis COPD (chronic obstructive pulmonary disease) ([facility]/HCC) Coronary heart disease ([facility]) Diabetes mellitus, type 2 ([facility]) HTN (hypertension) ([facility]) Hx of psoriasis Kidney disease CA (myocardial infarction) ([facility]) VIRGILIO (obstructive sleep apnea) Pacemaker Squamous [...] was counselled on the risk of stroke, CA, and sudden with VIRGILIO, along with the [...] Return to clinic: documented in this encounter [facility] 11-12-2023 Note Patient Education Urology Benign Prostatic [...] Follow these instructions at home: ? Take lpny-ncv-bfrkxvt and prescription medicines only as told by [...] develop side effec (more content not included)... [facility] 10-14-2023 Note ED Patient Education Note Orthopedics [...] under your knee. General instructions ? Take kvve-vcu-fbxggyi and prescription medicines only as told by [...] provider. Document Revised: 08/21/2020 Document Reviewed: 08/21/2020 [employer] Patient Education ? 2022 [employer]. [facility] 08-25-2023 History of Present illness Narrative Subjective [...] discussion and plan. documented in this encounter [facility] Work Phone: 08-25-2023 Instructions Jo Ann [...] of your visit. documented in this encounter [facility] Work Phone: 02-10-2023 History of Present [...] recent pacemaker checks. documented in this encounter [facility] Work Phone: 02-10-2023 Instructions Alize James [...] up per routine documented in this encounter [facility] Work Phone: 05-14-2022 Note PROCEDURE: XR [...] by: JOE DU Date: 2022-05-14 18:40 [facility] Evaluation note Diagnosis Sick sinus syndrome (CMS/HCC)- Primary Sinoatrial node dysfunction Mobitz type II atrioventricular block Mobitz (type) II atrioventricular block Pacemaker Cardiac pacemaker in situ Essential hypertension Unspecified essential hypertension Dilated cardiomyopathy (CMS/HCC) Other primary cardiomyopathies Paroxysmal atrial fibrillation (CMS/HCC) Atrial fibrillation documented in this encounter [facility] Work Phone: Evaluation note* Diagnosis Essential hypertension- Primary Unspecified essential hypertension Sick sinus syndrome (Multi) Sinoatrial node dysfunction Mixed hyperlipidemia Paroxysmal atrial fibrillation (Multi) Atrial fibrillation Dilated cardiomyopathy (Multi) Other primary cardiomyopathies Pacemaker Cardiac pacemaker in situ BMI 33.0-33.9,adult documented in this encounter [facility] Work Phone: Evaluation note* Diagnosis Other [...] Non-smoker BMI 30.0-30.9,adult documented in this encounter [facility] Work Phone: Evaluation note* Diagnosis VIRGILIO (obstructive sleep apnea)- Primary Obstructive sleep apnea (adult) (pediatric) Hypersomnia Hypersomnia, unspecified PLMD (periodic limb movement disorder) Periodic limb movement disorder Obesity due to excess calories, unspecified classification, unspecified whether serious comorbidity present Snoring Other dyspnea and respiratory abnormality [facility] Work Phone: History of Present illness NarrativePatient [...] on the basis of his improve lifestyle modification.[facility] 250 DO Work Phone: History of Present [...] the merits of diet and weight loss. 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 -[facility] 600 DO Work Phone: Reason for referral (narrative)* Consultation (Routine) - Authorized Specialty Diagnoses / Procedures Referred By Contac t Referred To Contact Cardiology Diagnoses Sick sinus syndrome (CMS/HCC) Procedures Follow Up In Cardiology Varghese Caal MD [address] [place] [address], [address] [address] Varghese Caal MD [address] [place] [address] 2, [address] [address] Referral ID Status Reason Start Date Expiration Date V isits Requested Visits Authorized [id number] Authorized 02/10/2023 02/10/2024 1 1 [facility] Work Phone: Reason for referral (narrative)* Consultation (Routine) - Authorized Specialty Diagnoses / Procedures Referred By Contac t Referred To Contact Cardiology Diagnoses Sick sinus syndrome (Multi) Procedures Follow Up In Cardiology Varghese Caal MD [address] [place] [address] 2, [address] [address] Osvaldo Dickinson MD [address] [place] [address] 2, [address] [address] Referral ID Status Reason Start Date Expiration Date V isits Requested Visits Authorized [id number] Authorized 08/25/2023 08/24/2024 1 1 [facility] Work Phone: Chief Complaint LEIGHTON ARCINIEGA [...] and content) DATE CREATED AUTHOR 06/01/2022 [facility] DATE CREATED AUTHOR AUTHOR'S ORGANIZ ATION 07/03/2022 [employer] DATE CREATED AUTHOR AUTHOR'S ORGANIZ ATION 11/05/2022 [facility] DATE CREATED AUTHOR AUTHOR'S ORGANIZ ATION 11/14/2023 [facility] ical [facility] DATE CREATED AUTHOR AUTHOR'S ORGANIZ ATION 01/18/2024 [facility] dical [facility] DATE CREATED AUTHOR AUTHOR'S ORGANIZ ATION 02/21/2024 [facility] DATE CREATED AUTHOR AUTHOR'S ORGANIZ ATION 03/04/2024 [facility] DATE CREATED AUTHOR AUTHOR'S ORGANIZ ATION 04/02/2024 [facility] DATE CREATED AUTHOR AUTHOR'S ORGANIZ ATION 04/07/2024 [facility] DATE CREATED AUTHOR AUTHOR'S ORGANIZ ATION 04/13/2024 [facility] DATE CREATED AUTHOR AUTHOR'S ORGANIZ ATION 04/27/2024 [facility] Reason for Visit (unrecogniz ed section and content) Reason Comments Follow-up 6-9mo Reason Comments Follow-up 6-9 months Specialty Diagnoses / Procedures Referred By Contac t Referred To Contact Cardiology Diagnoses Sick sinus syndrome (Multi) Procedures Follow Up In Cardiology Varghese Caal MD [address] [place] [address], [address] [address] Varghese Caal MD [address] [place] [id number] Referral ID Status Reason Start Date Expiration Date V isits Requested Visits Authorized [id number] Authorized 02/10/2023 02/10/2024 1 1 Reason Comments Skin Check Follow-up Reason Comments Follow-up 6-9 months Specialty Diagnoses / Procedures Referred By Contac t Referred To Contact Cardiology Diagnoses Sick sinus syndrome (Multi) Procedures Follow Up In Cardiology Varghese Caal MD Traboulssi, Mourhaf, MD [address] [place] [address], [address] [address] Phone: tel: fax: Referral ID Status Reason Start Date Expiration Date V isits Requested Visits Authorized [id number] Authorized 08/25/2023 08/24/2024 1 1 Reason Comments Sleep Apnea Care Teams (unrecognized sec tion and content) Associate Professor Of Biostatistics Relationship Specialty Start Date End Date Andrea Espinoza DO [address] [id number] PCP - General 03/22/99 Associate Professor Of Biostatistics Relationship Specialty Start Date End Date DemarcuszulayAndrea DO [address] [place] [address] PCP - General 03/22/99 Associate Professor Of Biostatistics Relationship Specialty Start Date End Date Lori Medina MD [address] [place] [address] PCP - General Family Medicine 10/09/22 Associate Professor Of Biostatistics Relationship Specialty Start Date End Date DemarcuszulayAndrea DO [address] [place] [address] PCP - General 03/22/99 Associate Professor Of Biostatistics Relationship Specialty Start Date End Date Lori Medina MD [address] [place] [address] PCP - General Family Medicine 10/09/22 Associate Professor Of Biostatistics Relationship Specialty Start Date End Date Lori Medina MD [address] [place] [address] PCP - General Family Medicine 10/09/22 Team [...] BE BASED ON THE PRIMARY CLINICAL RECORDS. [facility]. provides no warranty or guarantee of the accuracy or completeness of information in this document.
== END 2024-04-27 15:02 | disposition home or self-care (01) ==
LOC: LAB 15:02
PROVIDERS: PCP Family Medicine; Visit Provider Family Medicine
DX: J20.9 Acute bronchitis, unspecified (principal)
CPT/HCPCS: 71046; 87070; 87205

== ENCOUNTER 2024-05-02 21:57 | Inpatient (IN) | payer MEDICARE, OTHER, SELFPAY ==
[2024-05-02] VITALS (12 sets, daily range): BP systolic 112–135; BP diastolic 61–81; PULSE 70–104; TEMP 36.9; O2SAT 92–96; BMI 30.1
--- OUTSIDE RECORDS SUMMARY | 2024-05-02 22:05 | XMS_ITS | CCD ---
Author Organization [facility] Care Team Providers Care Beam Racker Name Role Phone Andrea Espinoza Unavailable Unavailable [...] Afua MARCIAL, Dr. Varghese Lord Referring Unavailable Bernarda, Dr. Andrea De La Rosa Primary Care Unava ilable Bernarda, Dr. Andrea De La Rosa Primary Care Unava ilable Bernarda, Dr. Andrea De La Rosa Primary Care Unava ilable Afua MARCIAL, Dr. Varghese Lord Attending Unavailable Afua MARCIAL, Dr. Varghese Lord Referring Unavailable Bernarda, Dr. Andrea De La Rosa Primary Care Unava ilable Andrea Espinoza DO Primary Care Provider Andrea Espinoza DO Primary Care Provider Lori Medina MD Primary Care Provider [phone] BLANCA ALONSO Attending Unavailable BLANCA ALONSO Attending Unavailable DANK JONES Attending Unavailable BLANCA ALONSO Attending Unavailable BLANCA ALONSO Attending Unavailable BOBO BRENNER Attending Unavailable LORI MEDINA Primary Care Unavailable LORI MEDINA Primary Care Unavailable BEATA DEGROOT Attending Unavailable Andrea Espinoza DO Primary Care Provider VARGHESE CAAL P Attending Unavailable AFUA VARGHESE P Referring Unavailable ANDREA ESPINOZA Primary Care Unavailable OSVALDO DICKINSON Attending Unavailable AFUA, VARGHESE P Referring Unavailable ANDREA ESPINOZA Primary Care Unavailable Benton Vasquez DO Attending Provider Unavailab jameson HanleyeMica Attending Unavailable Lue, Mica MAnisa Referring Unavailable Lue, Mica M. Attending Unavailable Lue, Mica M. Referring Unavailable Anna Sr Attending Unavailable Lue, Mica MAnisa Attending Unavailable NATA TA Attending Unavailable Lue, Mica MAnisa Referring Unavailable Lue, Mica M. Admitting Unavailable Lue, Mica M. Attending Unavailable Lue, Mica M. Referring Unavailable Lue, Mica M. Admitting Unavailable Lue, Mica M. Attending Unavailable Afua Varghese P Admitting Unavailable McGuinVarghese castro P Attending Unavailable Jenelleuinmatthew, Varghese P Referring Unavailable Lue, Mica M. Admitting Unavailable Lue, Mica M. Attending Unavailable KatBenton ledezma Attending Unavailable KatBenton ledezma Admitting Unavailable KatkoBenton Attending Unavailable KatkoBenton D Admitting Unavailable Deepti Powell Attending Unavailable Lue, Mica M. Attending Unavailable Lue, Mica M. Attending Unavailable Lue, Mica MAnisa Attending Unavailable Lue, Mica MAnisa Attending Unavailable Lue, Mica MAnisa Attending Unavailable Lue Mica MAnisa Attending Unavailable Barb Loza Admitting UnavailBarb Lang Attending UnavailVini Carvalho Attending Unavailable NAPOLEON TA Attending Unavailab jameson LueMica Attending Unavailable Allergies Allergy Classification Reported Allergen(s) Allergy Type Date of Onset Reaction(s) Facility (9 sources) Enalapril; 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: [enalapril] Drug Allergy 02-10-20 Cough [facility] (18 sources) Metoprolol; 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: [metoprolol] Drug Allergy 10-12-19 23 Cough, Unknown -[facility] y [address] DO Work Phone: (4 sources) Fosinopril; 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: [Monopril] Drug Allergy 03-16-20 14 [facility] Repository (1 source) Metoprolol Drug Allergy 05-16-19 15 [facility] (1 source) strawberry allergenic extract Drug Allergy 05-16-19 15 [facility] (1 source) tomato allergenic extract Drug Allergy 05-16-19 15 [facility] (6 sources) Fosinopril; 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: [FOSINOPRIL] Drug Allergy 10-12-19 23 Unknown [facility] Work Phone: (3 sources) hydroCHLOROthiazide / Metoprolol; 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: [hydrochlorothiazide-m etoprolol] Drug Allergy [facility] Repository (3 sources) [place]; 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: [Strawberries] Food allergy (disorder) [facility] Repository (3 sources) Tomatoes; 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: [Tomatoes] Food allergy (disorder) [facility] Repository Medications Current Medications Medication Drug Class(es) Dates [...] (13 sources) take 1 tablet by jai twice daily ferrous sulfate, 325 mg ferrous [...] Start: 03-20-2020 take 2 tablets by mo [facility] three times daily hydrALAZINE HCl - [...] sources) Polyene Antifungal Start: 08-10-2023 nystatin (Mycostatin) [id number] UNIT/GM powder Indications: Erythema intertrigo Apply to [...] Start: 01-14-2021 take 2 tablets by mo uth once daily Spironolactone 25 MG Oral Tablet [...] disease (2 sources) Atherosclerotic heart disease of [place] coronary artery without angina pectoris; 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: [Old [...] 06-01-2022 10-11-2022 Chronic Other aftercare (1 source) 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 [address] 2024 11:00 AM EDT With: Where: [facility] You Need to Schedule the Following Appointments Follow Up with Mica Car MD, URL, URO When: Where: Medications What How Much When Instructions New finasteride (finasteride 5 mg Tab) 1 Tablets By Mouth Every day Refills: 11 Pickup at [facility] #[id number] Unchanged terazosin (terazosin 10 mg Cap) 1 [...] Duration: 3 (more content not included)... Normal [facility] Urology Office/Clinic Noteon 04-26-2024 Urology Office/Clinic Note [...] unspecified) Pt states he was admitted at [facility] x 4 days due to PNA, Gomez removed and discharged 04/08/24. Pt states he presented back to [facility] ER due to UR. Gomez [...] scan, ~ 80 g) S/p Rezum by [facility] 02/14/24 - 9 treatments, Rt side did [...] further bleeding since then. Pt went to [place] ER 02/26/24 d/t persistent dysuria. Admitted for 3 days. Received IV abx. Dc'd on Cipro x 10d and Levsin. Urine and blood cx both came back neg. [facility] ER 04/08/24 U.Cx was negative. Pt had an infection at the time of him being admitted in the hospital, is currently on abx. Advised pt to continue to abx that was given at the time of the ER visit. Started on Levaquin 500mg qd x3 wks 04/12/24. -Complete ATB course -See #3 5. 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 Elevated risk of periop complications. Follow-up With When Contact Information Josep SANDHU, Mica Johns, URL, URO Additional Instructions: Cysto 05/18/24 Patient Education Indwelling Urinary Catheter Insertion Carleen Heredia, personally scribed for Dr. Car on 04/26/2024 11:45:15. . Documentation recorded by the scribCarleen dorman, accurately reflects the services(s) I performed and [...] DM (diabetes (more content not included)... Normal [facility] Comment on above: Result Comment: Elec [...] AM EST With: Where: [facility] [address] [facility] [place] [address] [place] [address]- Wednesday 1:00 PM EST With: Mica Car MD Where: [facility] [address] [address]- 2024 11:00 AM EDT With: Where: [facility] You Need to Schedule the Following Appointments Follow Up with Mica Car MD, URL, URO When: In 1 month Comments: w/PVR Where: Medications What How Much When Instructions New levofloxacin (Levaquin 500 mg Tab) 1 Tablets By Mouth Every 24 hours Duration: 3 Weeks Pickup at [facility] #[id number] Unchanged acetaminophen (Tylenol Extra Strength 500 mg [...] 3 time (more content not included)... Normal [facility] Urology Office/Clinic Noteon 04-12-2024 Urology Office/Clinic Note Urology Office/Clinic Note Chief Complaint 1 mth f/u HPI Staff 78yr old male pt here for 1mo f/u with [facility]. S/p Cystoscopy, TRUS 01/27/2024, Rezume done on 02/14/24 w/ Dr. Car. Previous Dx: uti, BPH with urinary obstruction, anticoagulated *terazosin 10 mg qd, sildenafil 100mg PRN pt has Gomez. Pt states he was in [facility] for 4 days for pneumonia, Wednesday he was released and Gomez was taken out. Pt then states he could not urinate so he went back to [facility] and they placed the Gomez. [...] has Gomez. Pt states he was in [facility] for 4 days for pneumonia, Wednesday he was released and Gomez was taken out. Pt then states he could not urinate so he went back to [facility] and they placed the Gomez, [...] scan, ~ 80 g) S/p Rezum by [facility] 02/14/24 - 9 treatments, Rt side did [...] further bleeding since then. Pt went to [place] ER 02/26/24 d/t persistent dysuria. Admitted for 3 days. Received IV abx. Dc'd on Cipro x 10d and Levsin. Urine and blood cx both came back neg. [facility] ER 04/08/24 U.Cx was negative. [...] be stoppe (more content not included)... Normal [facility] Comment on above: Result Comment: Elec tronically Signed By: Mica Car MD\.br\Date and Time Signed: 04/12/24 12:07 EST\.br\Electronically Co-Signed By: Kavita Mukherjee\.br\Date and Time Co-Signed: 04/12/24 11:48 EST Urine Cultureon 03-28-2024 Bacteria identified Cx Nom (U) No Growth 2 Days PERFORMED BY: [place] [address] PATHOLOGIST LAMP TESTER AND INSPECTOR OSCAR ESCOBAR M.D. Normal [facility] Comment on above: Performed By: #### C UU #### [address] C Urineon 03-26-2024 Bacteria identified Cx Nom (U) Microbiology PROCEDURE: Urine Culture [R1] SOURCE: U Random BODY SITE: COLLECTED DATE/TIME: 03/24/2024 10:36 EST RECEIVED DATE/TIME: 03/24/2024 18:30 EST START DATE/TIME: 03/24/2024 18:30 EST FREE TEXT SOURCE: Josep SANDHU, Mica Pham MD FINAL REPORTS Final Report [] Verified Date/Time: 03/26/2024 07:44 EST No growth at 2 days. Performing Locations R1: This test was performed at: [facility], [address] [place] [address], [id number]- , [place], [facility] Comment on above: Performed By: #### 2 [id number] #### [facility] [address] [place] [address] Main OR Preoperative Recordo n 03-20-2024 Main OR Preoperative Record Main OR Preoperative Record Holding Area Document Type FTURO Summary Primary Physician: Mica Car MD Finalized Date/Time: 03/20/24 16:29:34 Pt. Name: LEIGHTON ARCINIEGA /Sex: 1945 Male Med Rec #: [id number] Physician: Mica Car MD Financial #: [id number] Pt. Type: O Room/Bed: / Admit/Disch: 12/27/23 [...] Complaints of Pain: No Skin Integrity Intact, [place], Warm, & Dry Vitals - EU Blood Pressure 122/75 Pulse 81 bpm Respirations 18 br/min SPO2 96 % Additional None RN Reviewed Yes Specimens Collected Last Modified By: Ankita Gray RN 12/27/23 11:25:48 Finalized By: MICHELLE Marks RN, Ruthann Document Signatures Signed By: Latha David LPN 12/27/23 11:01 Latha David LPN 12/27/23 11:02 Kendrick GODINEZ, Dalia MARTINEZ 03/20/24 16:29 Normal [facility] Urine Cultureon 03-11-2024 Bacteria identified Cx Nom (U) ORGANISM: Prudence glabrata (O:CANGLA) Wayside Count 75,000 PERFORMED BY: [facility] [address] [id number] PATHOLOGIST LAMP TESTER AND INSPECTOR OSCAR ESCOBAR M.D. Normal [facility] Comment on above: Performed By: #### C UU #### [facility] [address] [place], [place] [id number] [facility] Urine cultureOrdered By: Derek Vasquez on 03-11-2024 Bacteria identified Cx Nom (U) Abnormal [facility] Urology Office/Clinic Noteon 03-02-2024 Urology Office/Clinic Note [...] that he had 3 day stay at [facility] on 02/26/24 for severe UTI & [...] further bleeding since then. Pt went to [place] ER 02/26/24 d/t persistent dysuria. Admitted for [...] 124ml Told him to continue Alfuzosin. Ordered: 21501 Measure Post Void residual urine and/or bladder [...] Urnls Dip Stick Auto w/o Microscopy POC [id number] 3. Anticoagulated (Z79.01: [facility] (current) use of anticoagulants) on Eliquis. Follow-up [...] Hypercholesteremia Inco (more content not included)... Normal [facility] Comment on above: Result Comment: Elec tronically Signed By: NATA TA PA-C.br\Date and Time Signed: 03/02/24 17:13 EST\.br\Electronically Co-Signed By: Martir Sheabr\Date and Time Co-Signed: 03/02/24 13:38 EST ECG 12 Leadon 03-01-2024 AV paced rhythm [facility] Work Phone: URINE CULTUREon 02-19-2024 Bacteria identified Cx Nom (U) CULTURE RESULTS 10-50,000 ORGANISMS/mL NORMAL UROGENITAL ELIN Normal [facility] Comment on above: Performed By: #### 6 30-4 #### [facility] ([id number]) [address] [place] [address], [address] [place] [address] URN MACROSCOPIC NURon 2023 BILIRUBIN LETHA Negative Normal NEG [facility] Comment on above: Performed By: #### N UM #### [facility] ([id number]) [address] [place] [address] BLOOD/HGB LETHA Large Abnormal NEG [facility] Comment on above: Performed By: #### N UM #### [facility] ([id number]) [address] [place] [address] GLUCOSE LETHA >=1000 Abnormal NEG [facility] Comment on above: Performed By: #### N UM #### [facility] ([id number]) [address] [place] [address] KETONES LETHA Negative Normal NEG [facility] Comment on above: Performed By: #### N UM #### [facility] ([id number]) [address] [place] [address] LEUKOCYTE ESTERASE LETHA Small Abnormal NEG [facility] Comment on above: Performed By: #### N UM #### [facility] ([id number]) [address] [place] [address] NITRITE LETHA Negative Normal NEG [facility] Comment on above: Performed By: #### N UM #### [facility] ([id number]) [address] [place] [address] PH LETHA 6.0 Normal 5.0-8.5 [facility] Comment on above: Performed By: #### N UM #### [facility] ([id number]) [address] [place] [address] PROTEIN LETHA 100 mg/dL Abnormal NEG [facility] Comment on above: Performed By: #### N UM #### [facility] ([id number]) [address] [place] [address] SPECIFIC GRAVITY LETHA 1.015 Normal 1.003-1.035 [facility] Comment on above: Performed By: #### N UM #### [facility] ([id number]) [address] [place] [address] UROBILINOGEN LETHA 0.2 eu/dL Normal <1.1 [facility] Comment on above: Performed By: #### N UM #### [facility] ([id number]) [address] [place] [address] Inpatient Patient Summaryon 02-14-2024 Inpatient Patient Summary Inpatient Patient Summary [address] [address] Clinical Summary Person Information Name: LEIGHTON ARCINIEGA Age: 78 Years : 1945 Sex: Male PCP: Lori Medina MD Marital Status: Race: White Ethnicity: Non- or Language: Dutch Visit Id: Visit Reason: BPH WITH URINARY OBSTRUCTION Speciality: Acuity: Enc Type: Outpatient Med Service: Surgery Arrival: 02/14/2024 09:35:51 Discharge: Dispo Type: Address: [address] [place] [address] DR TONEY [address] [place] [id number] Provider Notes: Diagnosis: BPH with obstruction/lower urinary [...] day as needed for pain. acetaminophen-hydroc odone ([place] 325 mg-5 mg oral tablet) 1 Tablets [...] Information: EU - Rezum Discharge Instructions (CUSTOM) [facility] Main OR Intraoperative Recor don 02-14-2024 Main OR Intraoperative Record Main OR Intraoperative Record IntraOp Document Type FTURO Summary Primary Physician: Mica Car MD Finalized Date/Time: 02/14/24 12:08:58 Pt. Name: LEIGHTON ARCINIEGA/Sex: 1945 Male Med Rec #: [id number] Physician: Mica Car MD Financial #: [id number] Pt. Type: O Room/Bed: / Admit/Disch: 02/14/24 [...] Attendee Mica Car MD, Kelsie E McClain CST, Kimberly A Role Performed Surgeon - Primary Steward Dishwasher - Primary Scrub - Primary Time In [...] Corral 02/14/24 12:08 Jocy Corral 02/14/24 12:08 [facility] Main OR Preoperative Recordo n 02-14-2024 Main OR Preoperative Record Main OR Preoperative Record Holding Area Document Type FTURO Summary Primary Physician: Mica Car MD Finalized Date/Time: 02/14/24 11:48:27 Pt. Name: LEIGHTON ARCINIEGA /Sex: 1945 Male Med Rec #: [id number] Physician: Mica Car MD Financial #: [id number] Pt. Type: O Room/Bed: / Admit/Disch: 02/14/24 [...] Complaints of Pain: No Skin Integrity Intact, [place], Warm, & Dry Vitals - EU Blood Pressure 152/74 Pulse 61 bpm Respirations 18 br/min SPO2 97 % Additional None RN Reviewed Yes Specimens Collected Last Modified By: Jocy Corral 02/14/24 11:48:23 Finalized By: Jocy Corral Document Signatures Signed By: Latha David LPN 02/14/24 11:05 Jocy Corral 02/14/24 11:48 Jocy Corral 02/14/24 11:48 Normal [facility] Operative Reporton Operative Report Operative Report [...] clearer. Follow-up in 1 month PVR.. Normal [facility] Comment on above: Result Comment: Elec tronically Signed By: Josep SANDHU, Mica Johns\.br\Date and Time Signed: 02/14/24 12:03 EST Outpatient Surgery Discharge Instructionon 02-14-2024 Outpatient Surgery Discharge Instruction Outpatient Surgery Discharge Instruction [place] [id number] Patient Discharge Instructions PERSON INFORMATION Name: LEIGHTON [...] there (more content not included)... Normal [facility] Ambulatory Visit Summaryon 1 04-01-2023 Ambulatory Visit [...] Strength 500 mg oral tablet) acetaminophen-hydroc odone ([place] 325 mg-5 mg oral tablet) allopurinol (allopurinol [...] if questions or concerns Unchanged acetaminophen-hydroc odone ([place] 325 mg-5 mg oral tablet) 1 Tablets [...] omeprazole (omep (more content not included)... Normal [facility] Urology Office/Clinic Noteon 01-31-2024 Urology Office/Clinic Note [facility]rology [facility]Cl[facility] Note [facility] Staff 78 year old male patient presents today for a [facility] ER follow up 01/23/24. Pt has [...] with voice recognition artificial intelligence software, specifically [employer] Smart[employer]Building, ImpulseFlyer and or Mixbook. 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 Denies [...] in medic (more content not included)... Normal [facility] Comment on above: Result Comment: Elec tronically Signed By: MICHAEL Sr APRN, Anna Herrera\.br\Date and Time Signed: 01/31/24 16:26 EST URINE CULTUREon 01-24-2024 Bacteria identified Cx Nom (U) CULTURE RESULTS NO GROWTH AT <1000 CFU/mL Normal [facility] Comment on above: Performed By: #### 6 30-4 #### [facility] ([id number]) [address] [place] [address], [address] [place] [address] URN MACROSCOPIC NURon 2023 BILIRUBIN LETHA Negative Normal NEG [facility] Comment on above: Performed By: #### N UM #### [facility] ([id number]) [address] [place] [address] BLOOD/HGB LETHA Trace Abnormal NEG [facility] Comment on above: Performed By: #### N UM #### [facility] ([id number]) [address] [place] [address] GLUCOSE LETHA >=1000 Abnormal NEG [facility] Comment on above: Performed By: #### N UM #### [facility] ([id number]) [address] [place] [address] KETONES LETHA Negative Normal NEG [facility] Comment on above: Performed By: #### N UM #### [facility] ([id number]) [address] [place] [address] LEUKOCYTE ESTERASE LETHA Large Abnormal NEG [facility] Comment on above: Performed By: #### N UM #### [facility] ([id number]) [address] [place] [address] NITRITE LETHA Negative Normal NEG [facility] Comment on above: Performed By: #### N UM #### [facility] ([id number]) [address] [place] [address] PH LETHA 6.0 Normal 5.0-8.5 [facility] Comment on above: Performed By: #### N UM #### [facility] ([id number]) [address] [place] [address] PROTEIN LETHA 100 mg/dL Abnormal NEG [facility] Comment on above: Performed By: #### N UM #### [facility] ([id number]) [address] [place] [address] SPECIFIC GRAVITY LETHA 1.015 Normal 1.003-1.035 [facility] Comment on above: Performed By: #### N UM #### [facility] ([id number]) [address] [place] [address] [place] [address] UROBILINOGEN LETHA 0.2 eu/dL Normal <1.1 [facility] Comment on above: Performed By: #### N UM #### [facility] ([id number]) [address] [place] [address] Inpatient Patient Summaryon 12-27-2023 Inpatient Patient Summary Inpatient Patient Summary [address] [address] Clinical Summary Person Information Name: LEIGHTON ARCINIEGA Age: 78 Years : 1945 Sex: Male PCP: Lori Medina MD Marital Status: Race: White Ethnicity: Non- or Language: Dutch Visit Id: Visit Reason: BPH WITH URINARY OBSTRUCTION Speciality: Acuity: Enc Type: Outpatient Med Service: Surgery Arrival: 12/27/2023 09:33:05 Discharge: Dispo Type: Address: [facility] LINDEN TONEY [address] [facility] [id number] Provider Notes: Diagnosis: Anticoagulated; Other obstructive and [...] day as needed for pain. acetaminophen-hydroc odone ([place] 325 mg-5 mg oral tablet) 1 Tablets [...] When: Mica Car Comments: Office to schedule Rezu Type Location Start Finish State NCV Pacemaker (FT) FT.CARDIO 06/01/2024 11:00 AM 06/01/2024 11:15 AM Confirmed Patient Education Information: EU - Cystoscopy Discharge Instructions (CUSTOM) [facility] Main OR Intraoperative Recor don 12-27-2023 Main OR Intraoperative Record Main OR Intraoperative Record IntraOp Document Type FTURO Summary Primary Physician: Mica Car MD Finalized Date/Time: 12/27/23 11:42:38 Pt. Name: SUZE LEIGHTONMARTÍNEZ [place]/Sex: 1945 Male Med Rec #: [id number] Physician: Mica Car MD Financial #: [id number] Pt. Type: O Room/Bed: / Admit/Disch: 12/27/23 09:33:05 - Institution: Case Times FTURO Entry 1 Patient Times In Room 12/27/23 11:23:00 Out Room 12/27/23 11:42:00 Procedure Times Start 12/27/23 11:29:00 Stop 12/27/23 11:34:00 Anesthesia Times Last Modified By: Tunde GODINEZ, Ankita Willett 12/27/23 11:36:34 General Comments: CYSTOSCOPY ENDED AT 1131. TRUS STARTED AT 1132 -Lavelle GRAY RN Case Attendance FTURO Entry 1 Entry 2 Entry 3 Case Attendee Mica Car MD, RN, Micky Vargas Role Performed Surgeon - Primary Steward Dishwasher - Primary Scrub - Primary Time In 12/27/23 11:23:00 12/27/23 11:23:00 12/27/23 11:23:00 Time Out 12/27/23 11:42:00 12/27/23 11:42:00 12/27/23 11:42:00 Procedure PROSTATE TRANSRECTAL PROSTATE TRANSRECTAL PROSTATE TRANSRECTAL ULTRASOUND WITH BIO(.) ULTRASOUND WITH BIO(.) ULTRASOUND WITH BIO(.) Comments Last Modified By: Tunde GODINEZ, Ankita Gray RN, Ankita Gray RN, Ankita Willett 12/27/23 Shelly P 12/27/23 Shelly P 12/27/23 11:36:37 11:36:37 11:36:37 [...] By: Ankita Gray RN 12/27/23 11:42 Normal [facility] Operative Reporton Operative Report Operative Report Patient: LEIGHTON ARCINIEGA Age: 78 years Sex: Male : 1945 Associated Diagnoses: None Author: Mica Car MD Procedure Operative Information Details: Date/ Time: 12/27/2023 12:10:00. Pre-Op Dx: BPH w/ LUTS - N40.1. Post-Op Dx: Feeling of incomplete bladder emptying (KOF10-WK R39.14, Working, Medical), Anticoagulated (BQV93-BW Z79.01, Discharge, Medical), Same. Anesthesia Type: Local. [...] and Valium prior to procedure. 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 -Will need blood thinners held prior to procedure. Elevated risk of bleeding discussed. -Patient did better on terazosin. Will DC tamsulosin and restart terazosin 10 mg daily. [facility] [place] Normal [facility] Comment on above: Result Comment: Elec tronically Signed By: Josep SANDHU, Mica Johns\.br\Date and Time Signed: 12/27/23 12:14 EDT Outpatient Surgery Discharge Instructionon 12-27-2023 Outpatient Surgery Discharge Instruction Outpatient Surgery Discharge Instruction [place] [id number] Patient Discharge Instructions PERSON INFORMATION Name: LEIGHTON [...] When: Mica Car Comments: Office to schedule [facility] Type Location Start Finish State NCV [...] Date You may receive a survey from Jacquie Mckeon asking you to rate your care experience. Your feedback is important and will help us understand what we do well and how we can improve the quality of care we provide to you, your loved ones and our community. It?s an honor to serve you. Thank you for choosing [facility] Normal [facility] Ambulatory Visit Summaryon 0 11-12-2023 Ambulatory [...] Strength 500 mg oral tablet) acetaminophen-hydroc odone (Pink Hill 325 mg-5 mg oral tablet) allopurinol (allopurinol [...] if questions or concerns Unchanged acetaminophen-hydroc odone (Pink Hill 325 mg-5 mg oral tablet) 1 Tablets [...] Mouth E (more content not included)... Normal [facility] Urology Office/Clinic Noteon 11-12-2023 Urology Office/Clinic [...] (N52.9: Male erectile dysfunction, unspecified) Hx of AR in 2002. Has pacemaker in place. Denies [...] When Contact Information Josep SANDHU, Mica Johns, URAmanda, URO Additional Instructions: schedule cysto/TRUS for prostate [...] antigen) Seborr (more content not included)... Normal [facility] Comment on above: Result Comment: Elec tronically Signed By: Mica Car MD\.br\Date and Time Signed: 11/12/23 16:43 EDT\.br\Electronically Co-Signed By: Maria Luz Mejia\.br\Date and Time Co-Signed: 11/12/23 16:14 EDT PTH [place] 10-15-2023 Parathyrin.intact [Mass/Vol] 49 pg/mL Invalid Interpretation Code 15-65 [facility] Comment on above: Result Comment: Perf ormed at: [facility] [address] [phone] [id number] PhD Carlos Singh Performed By: #### 1 [id number] #### [facility] [address] [place] [address] ED Clinical Summaryon 2023 ED Clinical Summary ED Clinical Summary [address] [address] ED Clinical Summary Person Information Name: LEIGHTON ARCINIEGA [facility] Age: 77 Years : 1945 Sex: Male Language: Dutch PCP: Lori Medina MD Marital Status: Visit [...] 10/14/2023 13:18:55 10/14/2023 13:18:55 ADDRESS: [place]ie [place] [address] [place] [phone] PHYS DOC NOTES: MEDICAL INFORMATION: Prescriptions Given: New Medications [id number], [address] [place], [place] [phone], [phone] acetaminophen-hydroc odone (Pink Hill 325 mg-5 mg oral tablet) 1 Tablets [...] EDUCATION INFORMATION: Instructions: Acute Knee Pain, Adult, Ghvf-oc-Nenh Follow up: With: Address: When: Andrea [address]span[address] [place] [address] Business (1) In 3 days 10/17/2023 With: Address: When: Call to schedule a follow-up appointment with your orthopedic surgeon. Use the Pink Hill as needed for pain along with icing. . If you are unable to get in with your orthopedic surgeon, I have provided a referral for another one. In 3 days 10/17/2023 With: Address: When: Lori Medina [facility] [address] Business (1) In 3 days DIAGNOSIS: Posterior left knee pain Normal [facility] ED Note-Physicianon 10-14-19 ED Note-Physician ED [...] previously saw an orthopedic surgeon in [facility] for arthritis in which he will follow-up for further management of care. Patient is on Eliquis therefore I cannot prescribe him naproxen or any form of NSAID. Due to his age I did not feel a muscle relaxer was appropriate either. Based on this he is being prescribed 4 doses of Pink Hill. He was educated on appropriate use of [...] q4hr for pain, 4 tab(s), Refill(s) 0, [id number], 177, cm, 10/14/23 11:44:00 EDT, Height/Length Dosing, 104.8, kg, 10/14/23 11:44:00 EDT, Weight Dosing Disposition Plan Patient Discharge Condition stable Discharge Disposition home Discharge Prescription List Prescriptions Pink Hill 325 mg-5 mg oral tablet, 1 tab(s), Oral, q4hr, PRN Follow-up With When Contact Information Andrea Espana In 3 days 10/17/2023 EDT [address] [place] [address]- Business (1) Additional Instructions: Call to schedule a follow-up appointment with your orthopedic surgeon. Use the Pink Hill as needed for pain along with icing. . If you are unable to get in with your orthopedic surgeon, I have provided a referral for another one. In 3 days 10/17/2023 EDT Additional Instructions: Lori Medina In 3 days [address] [facility] [address]- Business (1) Additional Instructions: Patient Education Acute Knee Pain, Adult, Zpji-wa-Lohe Attestation Patient seen and evaluated by the physician golf course assistant. Attending physician was present in the emergency department and supervised care. This visit was performed by both the physician and an APC. I performed all aspects of the MDM as documented. This report was transcribed using voice recognition software. Every effort was made to ensure accuracy, however, inadvertently computerized lye machine operator mistakes may be present. Appropriate healthcare PPE was used in evaluating this patient. The patient was placed in a mask. The healthcare provider was wearing mask, gloves, and utiliz (more content not included)... Normal [facility] Comment on above: Result Comment: Elec tronically Signed By: Vini Quinteros DO\.br\Date and Time Signed: 10/14/23 16:09 EDT\.br\Electronically Co-Signed By: Nayla William PA-C\.br\Date and Time Co-Signed: 10/14/23 13:46 EDT ED Patient Summaryon 024 ED Patient Summary ED Patient Summary [facility] [address] [place], [place] [address] Patient Discharge Instructions Person Information Name: LEIGHTON ARCINIEGA Age: 77 Years Arrival Date: 10/14/2023 11:36:13 Discharge Diagnosis: Posterior left knee pain Primary Care Physician: Lori Medina MD Provider Information Primary Provider: Vini Quinteros DO Advanced Ordinary Seaman:Nayla William PA-C The exam and treatment you received in the Emergency Department were for an urgent problem and are not intended as complete care. It is important that you follow up with a doctor, nurse practitioner, or physician?s golf course assistant for ongoing care. If your symptoms become worse or you do not improve as expected and you are unable to reach your usual health care provider, you should return to the Emergency Department. We are available 24 hours a day. SUZE LEIGHTON Tyrese has been given the following list of patient education materials, prescriptions and follow-up instructions: Follow-up Instructions: With: Address: When: Andrea Espana [address] [place] [address] Business (1) In 3 days 10/17/2023 With: Address: When: Call to schedule a follow-up appointment with your orthopedic surgeon. Use the Pink Hill as needed for pain along with icing. . If you are unable to get in with your orthopedic surgeon, I have provided a referral for another one. In 3 days 10/17/2023 With: Address: When: Lori Medina [address] [facility] [address] Business (1) In 3 days In the event that this physician does not participate in your insurance network, please consult with your insurance company to find a nearby participating provider. Patient Education Materials: Acute Knee Pain, Adult, Gdma-wp-Ksqm A MESSAGE TO ALL PATIENTS REGARDING OPIOIDS PRESCRIPTION OPIOIDS: WHAT YOU NEED TO KNOW Prescription opioids can be used to help relieve kfdxjrkr-om-uosnhr pain and are often prescribed following a [...] or yo (more content not included)... Normal [facility] XR Knee Complete 4+ Views Le [...] mGy = na DAP = na Normal [facility] Screenson 06-17-2023 Screens [id number] #1.00TIFF Normal [facility] Screens [id number] #1.00TIFF Normal [facility] Ambulatory Visit Summaryon 0 06-16-2023 Ambulatory Visit Summary LEIGHTON ARCINIEGA :1945 Visit Date:06/16/2023 Ambulatory Visit Instructions Your Diagnosis BPH with urinary obstruction Incomplete bladder emptying ED (erectile dysfunction) Screening PSA (prostate specific antigen) Your Care Team Attending Physician - NATA TA PA-C Primary Care Physician - Lori Medina MD [...] Mica Johns Where: [facility] [...] these instructions at home: Medicines ? Take afkq-fwh-wfoykgk and prescription medicines only as told by [...] include cig (more content not included)... 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 Denies [...] Information Josep SANDHU, Mica Johns, URL, URO [address] [place] [phone] Additional Instructions: Has f/u already scheduled 11/12/23 Patient Education Erectile Dysfunction Benign Prostatic Hyperplasia Documentation recorded by the deon Frankel accurately reflects the services(s) I performed and decisions made by me. Authenticated by Nata Ta PA-C on 06/16/2023 10:56:10. I, Kriss Frankel, personally scribed for Nata Ta PA-C on [...] Amputation, Tonsillectomy. (more content not included)... Normal [facility] Comment on above: Result Comment: Elec tronically Signed By: NATA TA PA-C\.br\Date and Time Signed: 06/16/23 10:56 EDT\.br\Electronically Co-Signed By: Kriss Frankel\.br\Date and Time Co-Signed: 06/16/23 10:48 EDT [place] 05-10-2023 Screens [id number] #1.00TIFF [facility] Screens [id number] #1.00TIFF [facility] Ambulatory Visit Summaryon 0 05-07-2023 Ambulatory Visit [...] NATA TA PA-C Where: [facility] Normal [address] [place] [address]- \.br\ You Need to Schedule the Following Appointments\.br\ Follow Up with NATA TA PA-C, URL When: \.br\ Comments:\.br\ 1 mos w/ PVR \.br\ Where:\.br\ [address]br\ [place] [address]\.br\ [id number]\.br\ Medications\.br\ What How Much When Instructions\.br\ New tadalafil (tadalafil 10 mg Tab) 1 Tablets By Mouth As Directed as needed for for erectile dysfunction Refills: 3 Take one tab 1 hour prior to sexual activity. Do not exceed 20mg in 48hrs. Pickup at [facility] #[id number]\.br\ New tamsulosin (tamsulosin 0.4 mg Cap) 1 Capsules By Mouth Once a day (in the evening) Refills: 11 Pickup at [facility] #[id number]\.br\ Unchanged acetaminophen (Tylenol Extra Strength 500 mg [...] or concerns \.br\ Pharmacy Information\.br\ [id number]: [address] [place], [place] [phone]\.br\ Allergies\.br\ Monopril (Dry cough)\.br\ Strawberries (rash)\.br\ Tomatoes [...] Symptoms of this condition include:\.br\ ? \ [facility] Ambulatory Visit Summary LEIGHTON ARCINIEGA :1945 [...] MIGUELITO Richard, URO When: Comments: 6 mos (new med) Where: [address] [place] [phone] Medications What How Much When Instructions Unchanged [...] Every da (more content not included)... Normal [facility] Patient Educationon 05-07-19 Patient Education Urology [...] these instructions at home: Medicines ? Take slis-qhq-rwyxhvc and prescription medicines only as told by [...] include cig (more content not included)... 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 AMANDA [...] Information Josep SANDHU, Mica Johns, URL, URO [address], [place] [phone] Additional Instructions: 1 mos w/ PVR Patient Education Erectile Dysfunction Kriss Heredia, personally scribed for Dr. Car on 05/07/2023 15:06:02. . Documentation recorded by the scribe, Kriss Frankel, accurately reflects the services(s) I performed and decisions made by me. Authenticated by Dr. Car on 05/07/2023 16:05:51. Problem List/Past Medical History Ongoing Anticoagulated Arthritis Aspirin amrshall (more content not included)... Normal [facility] Comment on above: Result Comment: Elec tronically Signed By: Mica Car MD\.br\Date and Time Signed: 05/07/23 16:06 EST\.br\Electronically Co-Signed By: Kriss Frankel\.br\Date and Time Co-Signed: 05/07/23 15:08 EST Office Visit (Cardiology)on 07-01-2022 Follow-up visit Diagnoses/Problems [...] Weight Tips; Status:Complete - Retrospective Authorization; Done: [id number] Some eating tips that can help you lose weight.; Status:Complete - Retrospective Authorization; Done: [id number] Essential hypertension Renew: Carvedilol 6.25 MG Oral Tablet; Take 1 tablet twice daily Hyperlipidemia Renew: Simvastatin 20 MG Oral Tablet; TAKE 0.5 TABLET Bedtime SocHx: Former smoker Tobacco Use Screening; Status:Complete; Done: [id number] Patient Instructions Please bring all medicines, vitamins, [...] education sheet. Device check as directed per [facility] protocol Chief Complaint LEIGHTON ARCINIEGA is being [...] battery life but I believe it was assistant boiler operator error, and not true battery depletion. [...] negative for complaint. Vitals Vital Signs Recorded: [id number] 10: (more content not included)... Normal [facility] Tobacco Screening.on 023 Adult depression screening assessment No [facility] 600 DO Work Phone: Fall risk assessment b) One or more falls in the last year [facility] 600 DO Work Phone: Tobacco use status CPHS b) No [facility] 600 DO Work Phone: CBC AUTO DIFFon 05-28-2022 BASO # 0.0 103/ul Normal 0.0-0.[address] [facility] Comment on above: Performed By: #### C BC #### [facility] [address] [place] [address] Dr. Susie Hale Basophils/100 WBC (Bld) 0.5 % Normal 0.2-2.[address] [facility] Comment on above: Performed By: #### C BC #### [facility] [address] [place] [address] Dr. Susie Hale EO # 0.1 103/ul Normal 0.0-0.[address] [facility] Comment on above: Performed By: #### C BC #### [facility] [address] [place] [address] Dr. Susie Hale Eosinophils/100 WBC (Bld) 1.8 % Normal 0.9-7.0 [facility] Comment on above: Performed By: #### C BC #### [facility] [address] [place] [address] Dr. Susie Hale Erythrocyte distribution width (RBC) [Ratio] 13.0 % Normal 11.0-15.[address] [facility] Comment on above: Performed By: #### C BC #### [facility] [address] [place] [address] Dr. Susie Hale Hematocrit (Bld) [Volume fraction] 35.0 % Critically low 42.0-54.[address] [facility] Comment on above: Performed By: #### C BC #### [facility] [address] [place] [address] [address] Susie Hale Hemoglobin (Bld) [Mass/Vol] 12.2 g/dL Critically low 14.0-18.[address] [facility] Comment on above: Performed By: #### C BC #### [facility] [address] [place] [address] [address] Susie Hale IG # 0.05 10e3/ul Critically high 0.00-0.03 [facility] Comment on above: Performed By: #### C BC #### [facility] [address] [place] [address] [address] Susie Hale IG % 0.8 % Critically high 0.0-0.5 [facility] Comment on above: Performed By: #### C BC #### [facility] [address] [place] [address] [address] Susie Hale LYMPH # 1.9 103/ul Normal 1.2-3.[address] [facility] Comment on above: Performed By: #### C BC #### [facility] [address] [place] [address] [address] Susie Hale Lymphocytes/100 WBC (Bld) 28.7 % Normal 20.5-60.[address] [facility] Comment on above: Performed By: #### C BC #### [facility] [address] [place] [address] Dr. Susie Hale MANUAL DIFF REQ NO Normal [facility] Comment on above: Performed By: #### C BC #### [facility] [address] [place] [address] [address] Susie Hale MCH (RBC) [Entitic mass] 32.1 pg Normal 25.9-34.0 [facility] Comment on above: Performed By: #### C BC #### [facility] [address] [place] [address] [address] Susie Hale MCHC (RBC) [Mass/Vol] 34.9 g/dL Normal 29.9-35.2 [facility] Comment on above: Performed By: #### C BC #### [facility] [address] [place] [address] [address] Susie Hale MCV (RBC) [Entitic vol] 92.1 fL Normal 80.0-94.[address] [facility] Comment on above: Performed By: #### C BC #### [facility] [address] [place] [address] Dr. Susie Hale MONO # 0.7 103/ul Normal 0.3-0.8 [facility] Comment on above: Performed By: #### C BC #### [facility] [address] [place] [address] Dr. Susie Hale Monocytes/100 WBC (Bld) 10.9 % Normal 1.7-12.0 [facility] Comment on above: Performed By: #### C BC #### [facility] [address] [place] [address] Dr. Susie Hale NEUT # 3.7 103/ul Normal 1.4-6.[address] [facility] Comment on above: Performed By: #### C BC #### [facility] [address] [place] [address] Dr. Susie Hale Neutrophils/100 WBC (Bld) 57.3 % Normal 43.0-75.0 [facility] Comment on above: Performed By: #### C BC #### [facility] [address] [place] [address] Dr. Susie Hale Platelet mean volume (Bld) [Entitic vol] 8.5 fL Critically low 9.5-13.5 [facility] Comment on above: Performed By: #### C BC #### [facility] [address] [place] [address] Dr. Susie Hale PLT 238 103/ul Normal 150-450 [facility] Comment on above: Performed By: #### C BC #### [facility] [address] [place], [place] [address] Dr. Susie Hale RBC 3.80 106/ul Critically low 4.70-6.10 [facility] Comment on above: Performed By: #### C BC #### [facility] [address] [place], [place] [address] Dr. Susie Hale WBC 6.5 103/ul Normal 4.0-11.[address] [facility] Comment on above: Performed By: #### C BC #### [facility] [address] [place] [address] [address] STROKE HEAD WOon 05-29-[address] STROKE HEAD WO NONCONTRAST CT SCAN [...] MAILE CANO Date: 2022-05-28 18:17 Normal [facility] PROF 14(COMP METB)on 023 Albumin [Mass/Vol] 3.5 g/dL Normal 3.4-5.0 [facility] Comment on above: Performed By: #### C MP #### [facility] [address] [place], [place] [address] Dr. Susie Hale Albumin/Globulin [Mass ratio] 1.1 {ratio} Normal [facility] Comment on above: Performed By: #### C MP #### [facility] [address] [place], [place] [address] Dr. Susie Hale ALP [Catalytic activity/Vol] 87 U/L Normal 46-[address] [facility] Comment on above: Performed By: #### C MP #### [facility] [address] [place] [address] [address] Susie Hale ALT [Catalytic activity/Vol] 16 U/L Normal 16-[address] [facility] Comment on above: Performed By: #### C MP #### [facility] [address] [place] [address] [address] Susie Hale Anion gap [Moles/Vol] 10.0 mmol/L Normal [facility] Comment on above: Performed By: #### C MP #### [facility] [address] [place] [address] [address] Susie Hale AST [Catalytic activity/Vol] 14 U/L Critically low 15-[address] [facility] Comment on above: Performed By: #### C MP #### [facility] [address] [place] [address] Dr. Susie Hale Bilirubin [Mass/Vol] 0.2 mg/dL Normal 0.2-1.[address] [facility] Comment on above: Performed By: #### C MP #### [facility] [address] [place] [address] [address] Susie Hale Calcium [Mass/Vol] 8.9 mg/dL Normal 8.5-10.1 [facility] Comment on above: Performed By: #### C MP #### [facility] [address] [place] [address] [address] Susie Hale Chloride [Moles/Vol] 105 mmol/L Normal 98-107 [facility] Comment on above: Performed By: #### C MP #### [facility] [address] [place] [address] [address] Susie Hale CO2 [Moles/Vol] 25.7 mmol/L Normal 21.0-32.0 [facility] Comment on above: Performed By: #### C MP #### [facility] [address] [place] [address] [address] Susie Hale Creatinine [Mass/Vol] 1.87 mg/dL Critically high 0.70-1.[address] [facility] Comment on above: Performed By: #### C MP #### [facility] [address] [place] [address] [address] Susie Hale EGFR-AF [place] 43 mL/min/1.73m2 Critically low >=[address] [facility] Comment on above: Performed By: #### C MP #### [facility] [address] [place] [address] [address] Susie Hale EGFR-NON AF [place] 35 mL/min/1.73m2 Critically low >=[address] [facility] Comment on above: Performed By: #### C MP #### [facility] [address] [place] [address] [address] Susie Hale Globulin (S) [Mass/Vol] 3.2 g/dL Normal [facility] Comment on above: Performed By: #### C MP #### [facility] [address] [place] [address] [address] Susie Hale Glucose [Mass/Vol] 256 mg/dL Critically high 74-106 [facility] Comment on above: Performed By: #### C MP #### [facility] [address] [place] [address] [address] Susie Hale Potassium [Moles/Vol] 3.7 mmol/L Normal 3.5-5.[address] [facility] Comment on above: Performed By: #### C MP #### [facility] [address] [place] [address] [address] Susie Hale Protein [Mass/Vol] 6.7 g/dL Normal 6.4-8.2 [facility] Comment on above: Performed By: #### C MP #### [facility] [address] [place] [address] [address] Susie Hale Sodium [Moles/Vol] 137 mmol/L Normal 136-145 [facility] Comment on above: Performed By: #### C MP #### [facility] [address] [place] [address] [address] Susie Hale Urea nitrogen [Mass/Vol] 22.0 mg/dL Critically high 7.0-18.[address] [facility] Comment on above: Performed By: #### C MP #### [facility] [address] [place], [place] [address] Dr. Susie Hale Urea nitrogen/Creatinin e [Mass ratio] 11.8 mg/mg Normal [facility] Comment on above: Performed By: #### C SARA #### [facility] [address] [place], [place] [address] Dr. Susie Hale Office Visit (Cardiology)on 12-16-2021 [...] in adult Healthy Weight Tips; Status:Complete; Done: [id number] Some eating tips that can help you lose weight.; Status:Complete; Done: [id number] Essential hypertension Renew: Carvedilol 6.25 MG Oral Tablet; Take 1 tablet twice daily Hyperlipidemia Renew: Simvastatin 20 MG Oral Tablet; TAKE 0.5 TABLET Bedtime SocHx: Former smoker Tobacco Use Screening; Status:Complete; Done: [id number] Unlinked Stop: Aspirin 325 MG Oral Tablet [...] your visit. Device check as directed per [facility] protocol Follow up in 6-9 months Chief [...] skin r (more content not included)... Normal [employer] Tobacco Screening.on 022 Adult depression screening assessment No [facility] 600 DO Work Phone: Fall risk assessment a) No falls within the last year [facility] 600 DO Work Phone: Tobacco use status CP b) No [facility] Work Phone: Tobacco Screening.on 021 Fall risk assessment a) No falls within the last year [facility] 250 DO Work Phone: Tobacco use status CPHS b) No [facility] 250 DO Work Phone: Vital Signs Date Time Vital Sign Value Performing Clinician Rody ace 03-01-2024 11:12-0500 Body height 177.8 cm Osvaldo Dickinson MD Work Phone: [facility] 03-01-2024 11:12-0500 Body mass index (BMI) [Ratio] 30.13 kg/m2 Osvaldo Dickinson MD Work Phone: [facility] 03-01-2024 11:12-0500 Body weight 95.25 kg Osvaldo Dickinson MD Work Phone: [facility] 03-01-2024 11:12-0500 Diastolic blood pressure 54 mm[Hg] Osvaldo Dickinson MD Work Phone: [facility] 03-01-2024 11:12-0500 Heart rate 71 /min Osvaldo Dickinson MD Work Phone: [facility] 03-01-2024 11:12-0500 Systolic blood pressure 114 mm[Hg] Osvaldo Dickinson MD Work Phone: [facility] 12-14-2023 13:17-0400 Diastolic blood pressure 70 mm[Hg] Dank Robert DO Work Phone: [facility] 12-14-2023 13:17-0400 Heart rate 68 /min Dank Robert DO Work Phone: [facility] 12-14-2023 13:17-0400 SaO2% (BldA) [Mass fraction] 97 % Dank Robert DO Work Phone: [facility] 12-14-2023 13:17-0400 Systolic blood pressure 152 mm[Hg] Dank Robert DO Work Phone: [facility] 08-25-2023 12:12-0400 Body height 177.8 cm Varghese Caal MD Work Phone: [facility] 08-25-2023 12:12-0400 Body mass index (BMI) [Ratio] 33.43 kg/m2 Varghese Caal MD Work Phone: [facility] 08-25-2023 12:12-0400 Body weight 105.69 kg Varghese Caal MD Work Phone: [facility] 08-25-2023 12:12-0400 Diastolic blood pressure 54 mm[Hg] Varghese Caal MD Work Phone: [facility] 08-25-2023 12:12-0400 Heart rate 60 /min Varghese Caal MD Work Phone: [facility] 08-25-2023 12:12-0400 Systolic blood pressure 126 mm[Hg] Varghese Caal MD Work Phone: [facility] 02-10-2023 11:37-0500 Body height 177.8 cm Varghese Caal MD Work Phone: [facility] 02-10-2023 11:37-0500 Body mass index (BMI) [Ratio] 32.28 kg/m2 Varghese Caal MD Work Phone: [facility] 02-10-2023 11:37-0500 Body weight 102.06 kg Varghese Caal MD Work Phone: [facility] 02-10-2023 11:37-0500 Diastolic blood pressure 58 mm[Hg] Varghese Caal MD Work Phone: [facility] 02-10-2023 11:37-0500 Heart rate 63 /min Varghese Caal MD Work Phone: [facility] 02-10-2023 11:37-0500 Systolic blood pressure 120 mm[Hg] Varghese Caal MD Work Phone: [facility] 07-01-2022 10:54-0400 Body height 177.8 cm [facility]za [facility] 600 DO Work Phone: 07-01-2022 10:54-0400 Body mass index (BMI) [Ratio] 32.71 kg/m2 Andrea Espinoza Work Phone: [facility] 600 DO Work Phone: 07-01-2022 10:54-0400 Body surface area Derived from formula 2.21 m2 Andrea Espinoza Work Phone: [facility] 600 DO Work Phone: 07-01-2022 10:54-0400 Body weight 103.42 kg Andrea Espinoza Work Phone: [facility] 600 DO Work Phone: 07-01-2022 10:54-0400 Diastolic blood pressure 64 mm[Hg] Andrea Vasquezroh Work Phone: [facility] 600 DO Work Phone: 07-01-2022 10:54-0400 Heart rate 72 /min Andrea Vasquezroh Work Phone: [facility] 600 DO Work Phone: 07-01-2022 10:54-0400 Systolic blood pressure 118 mm[Hg] [facility]h [facility]: [facility] 600 DO Work Phone: 12-16-2021 11:08-0400 Body height 177.8 cm Andrea Houstonh Work Phone: [facility] 600 DO Work Phone: 12-16-2021 11:08-0400 Body mass index (BMI) [Ratio] 33.86 kg/m2 Andrea [facility]roh [facility]: [facility] 600 DO Work Phone: 12-16-2021 11:08-0400 Body surface area Derived from formula 2.24 m2 Andrea Vasquezroh Work Phone: [facility] 600 DO Work Phone: 12-16-2021 11:08-0400 Body weight 107.05 kg Andrea Vasquezroh Work Phone: [facility] 600 DO Work Phone: 12-16-2021 11:08-0400 Diastolic blood pressure 64 mm[Hg] Andrea Espinoza Work Phone: [facility] 600 DO Work Phone: 12-16-2021 11:08-0400 Heart rate 72 /min Andrea Espinoza Work Phone: [facility] 600 DO Work Phone: 12-16-2021 11:08-0400 Systolic blood pressure 132 mm[Hg] Andrea Espinoza Work Phone: [facility] 600 DO Work Phone: 01-22-2021 14:36-0400 Body height 177.8 cm Andrea Espinoza Work Phone: [facility] 250 DO Work Phone: 01-22-2021 14:36-0400 Body mass index (BMI) [Ratio] 34.01 kg/m2 Andrea Espinoza Work Phone: [facility] 250 DO Work Phone: 01-22-2021 14:36-0400 Body surface area Derived from formula 2.24 m2 Andrea Espinoza Work Phone: [facility] 250 DO Work Phone: 01-22-2021 14:36-0400 Body weight 107.5 kg Andrea Espinoza Work Phone: [facility] 250 DO Work Phone: 01-22-2021 14:36-0400 Diastolic blood pressure 54 mm[Hg] Andrea Espinoza Work Phone: [facility] 250 DO Work Phone: 01-22-2021 14:36-0400 Heart rate 76 /min Andrea Espinoza Work Phone: [facility] 250 DO Work Phone: 01-22-2021 14:36-0400 Systolic blood pressure 104 mm[Hg] Andrea Houstonzulay Work Phone: [facility] 250 DO Work Phone: Encounters Encounter Date Encounter Type Care Provider Facility Start: 05-18-2024 ambulatory Mica M. Lue [facility] Start: 05-12-2024 ambulatory Mica M. Lue Facility:[facility] [place] Start: 04-26-2024 End: 04-26-2024 ambulatory Mica M. Lue Facility:[facility] Start: 04-25-2024 End: 04-25-2024 ambulatory Deepti Sernaa [facility] Start: 04-25-2024 End: 04-25-2024 ambulatory Mica M. Lue Facility:[facility] Start: 04-12-2024 End: 04-12-2024 ambulatory Mica M. Lue Facility:[facility] Start: 04-06-2024 End: 04-06-2024 ambulatory Mica M. Lue [facility] Start: 03-28-2024 End: 03-28-2024 ambulatory Benton Vasquez [facility] Work Phone: Start: 03-28-2024 End: 03-28-2024 Departed Referred Benton Vasquez DO [facility] Start: 03-24-2024 End: 03-24-2024 ambulatory Mica M. Lue [facility] Start: 03-11-2024 End: 03-11-2024 ambulatory Benton Vasquez Facility:[facility] Start: 03-11-2024 End: 03-11-2024 Departed Referred Benton Vasquez DO [facility] Start: 03-02-2024 End: 03-02-2024 ambulatory NATA TA Facility:[facility] Start: 03-01-2024 End: 03-01-2024 Office outpatient visit 25 minutes Osvaldo Dickinson MD Work Phone: [facility] Comment on above: Paroxysmal atrial fi brillation (Multi) (Primary Dx); Sick sinus syndrome (Multi); Pacemaker; Essential hypertension; Cardiomyopathy, unspecified type (Multi); Mixed hyperlipidemia; Stage 4 chronic kidney disease (Multi); Non-smoker; BMI 30.0-30.9,adult Start: 03-01-2024 End: 03-01-2024 ambulatory [facility] Ambulatory Start: 02-19-2024 End: 02-19-2024 Emergency department patient visit LORI Vallejo Fan [facility] Start: 02-18-2024 End: 02-18-2024 ambulatory Mica Car Facility:[facility] Start: 02-14-2024 End: 02-14-2024 ambulatory Mica Car Facility:[facility] Start: 01-31-2024 End: 01-31-2024 ambulatory Anna Milespatriciavalery Facility:[facility] Start: 01-24-2024 End: 01-24-2024 Emergency department patient visit BOBO Theodora BRENNER [facility] Start: 01-17-2024 End: 01-17-2024 Office outpatient visit 25 minutes Blanca Alonso MD Work Phone: [facility] Comment on above: Other atopic dermati tis (Primary Dx); Seborrheic keratosis; Lentigines; History of SCC (squamous cell carcinoma) of skin Start: 01-17-2024 End: 01-17-2024 ambulatory BLANCA ALONSO Not Available Start: 12-27-2023 End: 12-27-2023 ambulatory Mica Car Facility:[facility] Start: 12-14-2023 End: 12-14-2023 Bamboo flowsheet Dank Robert DO Work Phone: [facility] Start: 12-14-2023 End: 12-14-2023 Bamboo flowsheet Dank Robert DO Work Phone: [facility] Start: 12-14-2023 End: 12-14-2023 Office outpatient visit 25 minutes Dank Robert DO Work Phone: [facility] Comment on above: VIRGILIO (obstructive sle ep apnea) (Primary Dx); Hypersomnia; PLMD (periodic limb movement disorder); Obesity due to excess calories, unspecified classification, unspecified whether serious comorbidity present; Snoring Start: 12-14-2023 End: 12-14-2023 ambulatory DANK JONES Not Available Start: 12-09-2023 End: 12-09-2023 ambulatory Varghese Caal Facility:[facility] Start: 11-12-2023 End: 11-12-2023 ambulatory Mica Car Facility:[facility] Start: 10-14-2023 End: 10-14-2023 Emergency department patient visit Vinipete Quinteros Facility:[facility] Start: 10-14-2023 ambulatory Barb Elkins cility:[facility] Start: 08-31-2023 End: 08-31-2023 ambulatory BLANCA A PETITTI Not Available Start: 08-25-2023 End: 08-25-2023 Office outpatient visit 25 minutes Varghese Caal MD Work Phone: [facility] Comment on above: Essential hypertensi on (Primary Dx); Sick sinus syndrome (Multi); Mixed hyperlipidemia; Paroxysmal atrial fibrillation (Multi); Dilated cardiomyopathy (Multi); Pacemaker; BMI 33.0-33.9,adult Start: 08-25-2023 End: 08-25-2023 ambulatory [facility] Amb[facility] Start: 08-10-2023 End: 08-10-2023 ambulatory BLANCA A PETITTI Not Available Start: 06-16-2023 End: 06-16-2023 ambulatory NAPOLEON TA Facility:[facility] Start: 05-07-2023 End: 05-07-2023 ambulatory Mica Car Facility:[facility] Start: 03-19-2023 End: 03-19-2023 ambulatory BLANCA PETITTI Not Available Start: 03-05-2023 End: 03-05-2023 ambulatory BLANCA A PETITTI Not Available Start: 02-10-2023 End: 02-10-2023 Office outpatient visit 25 minutes Varghese Caal MD Work Phone: [facility] Comment on above: Sick sinus syndrome (CMS/HCC) (Primary Dx); Mobitz type II atrioventricular block; Pacemaker; Essential hypertension; Dilated cardiomyopathy (CMS/HCC); Paroxysmal atrial fibrillation (CMS/HCC) Start: 10-22-[address] Andrea Espinoza Facility: Start: 07-01-2022 Office outpatient vi sit 25 minutes Andrea Espinoza Work Phone: [facility] 600 DO Work Phone: Start: 07-01-[address] Varghese Caal II Facility: Start: 05-28-2022 End: 05-28-[address] TRINO Lange Facility:[facility] Start: 05-14-2022 End: 05-15-2022 ambulatory MARIXA ROY Facility:[facility] Start: 04-23-[address] Andrea Espinoza Facility: Start: 12-31-2021 Rx Renewal Andrea Espinoza Work Phone: [facility] 250 DO Work Phone: Start: 12-16-2021 Office outpatient vi sit 25 minutes Andrea Espinoza Work Phone: [facility] 600 DO Work Phone: Start: 12-16-[address] Varghese Caal II Facility: Start: 01-22-2021 Office outpatient vi sit 25 minutes Andrea Espinoza Work Phone: [facility] 250 DO Work Phone: Procedures Date Procedure Procedure Detail Performing Clinician Start: 03-11-2024 Urine culture Benton prajapati DO Start: 03-01-2024 Ecg routine ecg w/le ast 12 lds w/i&r Osvaldo Dickinson MD Work Phone: Colonoscopy Andrea Espinoza Work Phone: Comment on above: [id number]; Insertion of pacemak er pulse generator Andrea Espinzoa Work Phone: Operation on nose Andrea Edgar Work Phone: Operative procedure on hand Andrea Patel Bernarda Work Phone: Tonsillectomy and adenoidectomy Andrea Espinoza Work Phone: Plan of Treatment Date Care Activity Detail Author Start: 12-09-2032 DTaP/Tdap/Td Vaccine s (2 - Td or Tdap) DTaP/Tdap/Td Vaccines (2 - Td or Tdap) [facility] Start: 01-25-2025 End: 01-25-2025 Patient encounter procedure 01/25/2025 1:05 PM EST Office Visit [facility] [address] [place] [address] Blanca Alonso MD [address] [place] [address] [facility] Start: 12-12-2024 End: 12-12-2024 Patient encounter procedure 12/12/2024 1:00 PM EDT Office Visit [facility] [address] [facility] [address] [place] [address] Rox Cervantes, CARDIOPULMONARY SUPERVISOR [address] [place], [place] [facility] Start: 11-28-2024 Glaucoma screening Diabetes: R etinopathy Screening [facility] Start: 11-07-2024 End: 11-07-2024 Patient encounter procedure 11/07/2024 10:30 AM EDT Office Visit [place] [address] [place] [id number] Osvaldo Dickinson MD [address] [facility] [address] [place] [address] [facility] Start: 03-28-2024 Urine culture [facility] Start: 03-28-2024 Bacteria identified in Urine by Culture Urine Culture [facility] Start: 03-01-2024 End: 03-01-2024 Patient encounter procedure 03/01/2024 11:00 AM EST Office Visit [address] [place] [address] Osvaldo Dickinson MD [address] [facility] [address] [place] [address] [facility] Start: 01-17-2024 End: 01-17-2024 Patient encounter procedure 01/17/2024 3:15 PM EDT Office Visit [facility] [address] [place] [address] Blanca Alonso MD [address] [place] [address] [facility] Start: 12-14-2023 End: 12-14-2023 Patient encounter procedure 12/14/2023 1:30 PM EDT Office Visit [facility] [address] [facility] [place] [address] Dank Jones DO [address] [place] [address] Arrived [facility] Comment on above: Arrived Start: 12-01-2023 Glaucoma screening Diabetes: R etinopathy Screening [facility] Start: 08-25-2023 End: 08-25-2023 Patient encounter procedure 08/25/2023 11:40 AM EDT Office Visit [address] [place] [address] Varghese Caal MD [address] [facility] [address] [place] [address] [facility] Start: 06-05-2023 COVID-19 Vaccine ( season) COVID-19 Vaccine () [facility] Start: 04-01-2023 COVID-19 Vaccine (6 - Moderna series) COVID-19 Vaccine (6 - Moderna series) [facility] Start: 02-10-2023 FUV, Provider: Varghese Caal, Status: Pen, Time: 11:30 AM FUV, Provider: Varghese Caal, Status: Pen, Time: 11:30 AM -[facility] 600 DO Work Phone: Start: 07-01-2022 FUV, Provider: Varghese Caal, Status: Pen, Time: 10:40 AM FUV, Provider: Varghese Caal, Status: Pen, Time: 10:40 AM -[facility] 600 DO Work Phone: Start: 09-10-2021 FUV, Provider: Varghese Caal, Status: Pen, Time: 2:30 PM FUV, Provider: Varghese Caal, Status: Pen, Time: 2:30 PM -[facility] 250 DO Work Phone: Start: 2020 RSV High Risk: (Elde rly (60+) or Population) (1 - 1-dose 75+ series) RSV High Risk: (Elderly (60+) or Population) (1 - 1-dose 75+ series) [facility] Start: 05-09-2020 Echocardiography [facility] Start: 2005 RSV patient s and/or patients aged 60+ years (1 - 1-dose 60+ series) RSV patients and/or patients aged 60+ years (1 - 1-dose 60+ series) [facility] Start: 11-26-1995 Zoster Vaccines (1 of 2) Zoste r Vaccines (1 of 2) [facility] Start: 1964 Urine screening for protein Diabetes: Urine Protein Screening [facility] Start: 11-26-1963 [facility] Start: 11-26-1955 Diabetic foot examination Diabetes: Foot Exam [facility] Start: 11-26-1955 Glaucoma screening Diabetes: R etinopathy Screening [facility] Start: 1945 Creatinine measurement Creatinine Le sarah [facility] Start: 1945 Hemoglobin A1c measurement Jennifer nicolasa: Hemoglobin A1C [facility] Start: 1945 Lipid panel Lipid Panel [facility] Start: 1945 Medicare Annual Well ness Visit Medicare Annual Wellness Visit (AWV) [facility] Start: 1945 Potassium measurement Potassium Cb l [facility] Immunizations Immunization Date Immunization Notes Care Provider Fa naren 01-14-2022 Fluad Quadrivalent 0 .5 ML Intramuscular Prefilled Syringe Andrea Patel Pedroemma [facility] 600 DO Work Phone: 01-14-2022 Pfizer COVID-19 Vac Bivalent 30 MCG/0.3ML Intramuscular Suspension Andrea Patel Pedroemma Work Phone: [facility] 600 DO Work Phone: 09-03-2021 pneumococcal conjuga te vaccine, 13 valent Dank Robert DO Work Phone: [facility] 02-15-2021 Moderna COVID-19 Vac cine 100 MCG/0.5ML Intramuscular Suspension Andrea Amanda Vasquezemma Work Phone: [facility] 600 DO Work Phone: 01-30-2021 influenza virus vacc ine, unspecified formulation Andrea Patel Pedroemma Work Phone: [facility] 600 DO Work Phone: 11-28-2020 influenza, high dose seasonal, preservative-free Andrea Patel Pedroemma Work Phone: [facility] 250 DO Work Phone: Comment on above: Series: 06-20-2020 Moderna COVID-19 Vac cine 100 MCG/0.5ML Intramuscular Suspension Andrea Patel Pedroyann Work Phone: [facility] 600 DO Work Phone: 05-20-2020 Moderna COVID-19 Vac cine 100 MCG/0.5ML Intramuscular Suspension [facility]inoza [facility] Work Phone: Comment on above: Series: 04-25-2020 Moderna COVID-19 Vac cine 100 MCG/0.5ML Intramuscular Suspension Andrea Espinoza Work Phone: [facility] 250 DO Work Phone: Comment on above: Series: 12-21-2019 influenza virus vacc ine, unspecified formulation Andrea Espinoza Work Phone: [facility] 600 DO Work Phone: 12-20-2018 influenza, high dose seasonal, preservative-free Andrea Espinoza Work Phone: [facility] 02-19-2018 influenza virus vacc ine, unspecified formulation Andrea Houston Work Phone: [facility] 600 DO Work Phone: 02-19-2018 pneumococcal polysaccharide vaccine, 23 valent Andrea Houston Work Phone: [facility] 250 DO Work Phone: Comment on above: Series: 02-19-2018 pneumococcal vaccine , unspecified formulation Andrea Espinoza Work Phone: [facility] 02-18-2017 Influenza, injectabl e, Madin [place] Canine Kidney, preservative free, quadrivalent Andrea Houston Work Phone: [facility] 600 DO Work Phone: 11-24-2016 influenza, high dose seasonal, preservative-free Andrea Vasquezro Work Phone: [facility] DO Work Phone: 12-21-2015 pneumococcal conjuga te vaccine, 13 valent Andrea Houston Work Phone: [facility] 250 DO Work Phone: Comment on above: Series: Payers Date Payer Category Payer Self-pay 2022 Medicare [id number] 2022 [employer] ( and others) [id number] 2022 () [id number] 2022 For Life (TFL) F OR LIFE [id number]. [id number] 2022 [employer] ( and others) [id number] 2010 Medicare [id number] 1.13.647. [id number] 1959 [employer] ( and others) [id number] 1959 Medicare [id number] 1945 Unknown [id number] 2.16.840.1.332823.3.579. 2.593 1945 Unknown [id number] 2.16.840.1.018940.3.579. 2.593 1945 Unknown [id number] 2.16.840.1.801732.3.579. 2.356 1945 Unknown [id number] 2.16840.1.552548.3.579. 2.356 1945 Unknown [id number] 2.840.1.544038.3.579. 2.356 1945 Unknown [id number] 2.840.1.496948.3.579. 2.356 1945 Unknown [id number] 2.840.1.743412.3.579. 2.1259 1945 Unknown [id number] 2.840.1.845268.3.579. 2.1259 1945 Unknown [id number] 2.840.1.866350.3.579. 2.1259 1945 Unknown [id number] 2.840.1.748465.3.579. 2.1259 1945 Unknown [id number] 2.840.1.293511.3.579. 2.1259 1945 Unknown [id number] 2.840.1.677820.3.579. 2.1259 1945 Unknown [id number] 2.840.1.836902.3.579. 2.1286 1945 Unknown [id number] 2.840.1.864156.3.579. 2.1286 1945 Unknown [id number] 2.840.1.076215.3.579. 2.1244 1945 Unknown [id number] 2.840.1.059416.3.579. 2.1244 1945 Unknown [id number] 2.16.840.1.655087.3.579. 2.72 1945 Unknown [id number] 2.16.840.1.305872.3.579. 2. 1945 Unknown [id number] 2.16.840.1.265524.3.579. 2. 1945 Unknown [id number] 2.16.840.1.256755.3.579. 2. 1945 Unknown [id number] 2.16.840.1.843665.3.579. 2. 1945 Unknown [id number] 2.16.840.1.486160.3.579. 2 1945 Unknown [id number] 2.16.840.1.317967.3.579. 2 1945 Unknown [id number] 2.16.840.1.382443.3.579. 2 1945 Unknown [id number] 2.16.840.1.534779.3.579. 2 1945 Unknown [id number] 2.16.840.1.959551.3.579. 2 1945 Unknown [id number] 2.16.840.1.027085.3.579. 2. 1945 Unknown [id number] 2.16.840.1.800949.3.579. 2 1945 Unknown [id number] 2.16.840.1.698325.3.579. 2. 1945 Unknown [id number] 2.16.840.1.241870.3.579. 2 1945 Unknown [id number] 2.16.840.1.758216.3.579. 2. 1945 Unknown [id number] 2.16.840.1.703553.3.579. 2.727 1945 Unknown [id number] 2.16.840.1.680254.3.579. 2.727 1945 Unknown [id number] 2.16.840.1.739373.3.579. 2.727 1945 Unknown [id number] 2.16.840.1.834496.3.579. 2.727 1945 Unknown [id number] 2.16.840.1.521832.3.579. 2.727 Unknown Unknown [id number] 2.16.840.1.094827.3.579. 2.531 Unknown [id number] 2.16.840.1.076345.3.579. 2.531 Social History Date Type Detail Facility Start: 02-10-2023 End: 12-14-2023 No illicit drug use No illicit drug use [facility] 250 DO Work Phone: Comment on above: quit , 1 PPD; Start: 02-10-2023 End: 08-25-2023 Tobacco smoking status NHIS Ex-smoker [facility] Work Phone: End: 03-22-1992 History of tobacco use Current smoker [facility] Work Phone: End: 03-22-1992 History of tobacco use Cigarette Smoker [facility] Work Phone: Start: 10-11-2022 End: 02-10-2023 Tobacco use and exposure Smokeless tobacco non-user [facility] Work Phone: Start: 02-10-2023 End: 12-14-2023 Alcohol intake Lifetime non-drinker (finding) [facility] Work Phone: Start: 02-10-2023 End: 12-14-2023 Tobacco use panel [facility] Work Phone: Start: 1945 Sex Assigned At Not on file [facility] Work Phone: Start: 01-31-2023 End: 03-01-2024 Exposure to SARS-CoV-2 (event) Not sure [facility] Start: 10-11-2022 Tobacco smoking stat NHIS Never smoked tobacco [facility] Tobacco smoking stat us NHIS Unknown if ever smoked [facility] Work Phone: Start: 03-30-2024 Sex Patient sex un known (finding) [facility] Start: 1945 Sex Assigned At Male F [facility] Clinical Notes 05-14-2022 to 04-26-2024 Osvaldo [...] provider. Document Revised: 11/05/2021 Document Reviewed: 11/05/2021 [employer] Patient Education ? 2023 [employer]. [facility] 04-12-2024 Note Patient Education Urology Benign Prostatic [...] Follow these instructions at home: ??? Take qbqq-elq-emaoypa and prescription medicines only as told by [...] do not get (more content not included)... [facility] 03-02-2024 Note Patient Education Urology Acute Urinary [...] these instructions at home: Medicines ??? Take vfar-sej-gsxiilg and prescription medicines only as told by [...] provider. Document Revised: 11/27/2020 Document Reviewed: 11/27/2020 [employer] Patient Education ? 2023 [employer]. [facility] 03-01-2024 History of Present illness Narrative [...] to retrieve his recent lab work from [facility] 5. I will see him back [...] discussion and plan. documented in this encounter [facility] Work Phone: 03-01-2024 Instructions Betzaida Denney LPN [...] instructions on exercise. documented in this encounter [facility] Work Phone: 02-14-2024 Note Patient Education Rezum [...] to the c (more content not included)... [facility] 01-31-2024 Note Patient Education Urology Acute [...] these instructions at home: Medicines ??? Take rblv-xrn-zlfcufm and prescription medicines only as told by [...] provider. Document Revised: 11/27/2020 Document Reviewed: 11/27/2020 [employer] Patient Education ? 2023 [employer] Benign Prostatic Hyperplasia Benign prostatic hyperplasia (BPH) is an enlarged prostate gland that is caused by the normal aging proc (more content not included)... 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 and he [...] Visit: 1 year documented in this encounter [facility] 12-27-2023 Note Progress Note-Asaf tapia Patient: LEIGHTON [...] day(s), # 6 tab(s), Refills(s) 0, Pharmacy: [facility] #[id number], 177, cm, 12/27/23 11:02:00 EDT, Height/Length Dosing, 104, kg, 12/27/23 11:02:00 EDT, Weight Dosing [place] 325 mg-5 mg oral tablet: 1 tab(s), Oral, q6hr for pain, 4 tab(s), Refill(s) 0, Take 1 tablet an hour before procedure, post procedure prn, [facility] #[id number], 177, cm, 12/27/23 11:02:00 EDT, Height/Length Dosing, 104, kg, 12/27/23 11:02:00 EDT, Weight Dosing sildenafil 100 mg Tab: 100 mg = 1 tab(s), Oral, As Directed, PRN for erectile dysfunction, Take one tab 1 hour prior to sexual activity., # 30 tab(s), Refills(s) 3, Pharmacy: [facility] #[id number], 177.8, cm, 06/16/23 10:18:00 EDT, Height/Length Dosing, 104.8, kg, 06/16/23 10:18:... terazosin 10 mg Cap: 10 mg = 1 cap(s), Oral, Once a day (at bedtime), # 90 cap(s), Refills(s) 3, Pharmacy: [facility], 177, cm, 12/27/23 11:02:00 EDT, Height/Length Dosing, 104, kg, 12/27/23 11:02:00 EDT, Weight Dosing traMADOL 50 mg Tab: 50 mg = 1 tab(s), Oral, q6hr, Take as needed for pain., # 6 tab(s), Refills(s) 0, Pharmacy: [facility] #[id number], 177.8, cm, 11/12/23 15:35:00 EDT, Height/Length Dosing, [...] Plan: Diagnosis: Prostate hyperplasia with urinary obstruction (FGJ72-PL N40.1, Discharge, Medical), Feeling of incomplete bladder emptying (KVE46-BI R39.14, Working, Medical), Anticoagulated (LRQ65-BF Z79.01, Discharge, Medical). 78 yo male here [...] and Valium prior to procedure. 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 The procedural risks, benefits, details, and treatment alternatives have been discussed with the patient. These include bleeding, infection, continued problems urinating, increased frequency with urgency during the healing process, painful urination, need for indwelling cathete (more content not included)... [facility] Comment on above: Result Comment: Elec [...] you have a fever over 100 degrees. [facility] 12-14-2023 History of Present illness Narrative Images from the original note were not included. Chief Complaint Patient presents with Sleep Apnea Subjective Leighton Arciniega, 78 y.o., male HPI eLighton is doing well since last visit. He denies any issues with his new machine. He is sleeping well. She averages 8-9 hours of sleep per night. He does need new supplies. NO other new medical issues. NO issues with the mask. Overall feels rested during the day. He is not exercising. Past Medical History: Diagnosis Date Actinic keratosis COPD (chronic obstructive pulmonary disease) ([facility]/HCC) Coronary heart disease (CMS/HCC) Diabetes mellitus, type 2 (CMS/HCC) HTN (hypertension) ([facility]/HCC) Hx of psoriasis Kidney disease AR (myocardial infarction) ([facility]/HCC) VIRGILIO (obstructive sleep apnea) Pacemaker Squamous cell [...] was counselled on the risk of stroke, AR, and sudden with VIRGILIO, along with the [...] Return to clinic: documented in this encounter [facility] 11-12-2023 Note Patient Education Urology Benign Prostatic [...] Follow these instructions at home: ? Take tnvb-hsh-qhcbtai and prescription medicines only as told by [...] develop side effec (more content not included)... [facility] 10-14-2023 Note ED Patient Education Note [...] under your knee. General instructions ? Take mixy-ilt-rakiurj and prescription medicines only as told by [...] provider. Document Revised: 08/21/2020 Document Reviewed: 08/21/2020 [employer] Patient Education ? 2022 [employer]. [facility] 08-25-2023 History of Present illness Narrative [...] Attestation By signing my name below, IAlberta LPN, Scribe attest that this documentation has [...] discussion and plan. documented in this encounter [facility] Work Phone: 08-25-2023 Instructions Jo Ann Ferrer [...] of your visit. documented in this encounter [facility] Work Phone: 02-10-2023 History of Present illness [...] recent pacemaker checks. documented in this encounter [facility] Work Phone: 02-10-2023 Instructions Alize James LPN [...] up per routine documented in this encounter [facility] Work Phone: 05-14-2022 Note PROCEDURE: XR KNEE [...] by: JOE DU Date: 2022-05-14 18:40 [facility] Evaluation note Diagnosis Sick sinus syndrome (CMS/HCC)- Primary Sinoatrial node dysfunction Mobitz type II atrioventricular block Mobitz (type) II atrioventricular block Pacemaker Cardiac pacemaker in situ Essential hypertension Unspecified essential hypertension Dilated cardiomyopathy (CMS/HCC) Other primary cardiomyopathies Paroxysmal atrial fibrillation (CMS/HCC) Atrial fibrillation documented in this encounter [facility] Work Phone: Evaluation note* Diagnosis Essential hypertension- Primary Unspecified essential hypertension Sick sinus syndrome (Multi) Sinoatrial node dysfunction Mixed hyperlipidemia Paroxysmal atrial fibrillation (Multi) Atrial fibrillation Dilated cardiomyopathy (Multi) Other primary cardiomyopathies Pacemaker Cardiac pacemaker in situ BMI 33.0-33.9,adult documented in this encounter [facility] Work Phone: Evaluation note* Diagnosis Other atopic dermatitis- Primary Seborrheic keratosis Lentigines History of SCC (squamous cell carcinoma) of skin Personal history of other malignant neoplasm of skin documented in this encounter [facility] HealthcareEvaluation note* Diagnosis Paroxysmal atrial fibrillation (Multi)- Primary Atrial fibrillation Sick sinus syndrome (Multi) Sinoatrial node dysfunction Pacemaker Cardiac pacemaker in situ Essential hypertension Unspecified essential hypertension Cardiomyopathy, unspecified type (Multi) Mixed hyperlipidemia Stage 4 chronic kidney disease (Multi) Non-smoker BMI 30.0-30.9,adult documented in this encounter [facility] Work Phone: Evaluation note* Diagnosis VIRGILIO (obstructive sleep apnea)- Primary Obstructive sleep apnea (adult) (pediatric) Hypersomnia Hypersomnia, unspecified PLMD (periodic limb movement disorder) Periodic limb movement disorder Obesity due to excess calories, unspecified classification, unspecified whether serious comorbidity present Snoring Other dyspnea and respiratory abnormality documented in this encounter [facility] HealthcareEvaluation noteNo assessment information availableOhiohealth [facility] Work Phone: History of Present illness [...] on the basis of his improve lifestyle modification.-[facility] [employer] [address] DO Work Phone: History of Present [...] the merits of diet and weight loss. 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 [facility] [employer] [address] DO Work Phone: Reason for referral (narrative)* Consultation (Routine) - Authorized Specialty Diagnoses / Procedures Referred By Elida gifford Referred To Contact Cardiology Diagnoses Sick sinus syndrome (CMS/HCC) Procedures Follow Up In Cardiology Varghese Caal MD [address] [place] [address], [address] [address] Varghese Caal MD [address] [place] [address], [address] [address] Referral ID Status Reason Start Date Expiration Date V isits Requested Visits Authorized [id number] Authorized 02/10/2023 02/10/2024 1 1 [facility] Work Phone: Reason for referral (narrative)* Consultation (Routine) - Authorized Specialty Diagnoses / Procedures Referred By Elida gifford Referred To Contact Cardiology Diagnoses Sick sinus syndrome (Multi) Procedures Follow Up In Cardiology Varghese Caal MD [facility] [facility] [address], [address] [address] Osvaldo Dickinson MD [facility] [facility], [facility] [address] [place] [address] Referral ID Status Reason Start Date Expiration Date V isits Requested Visits Authorized [id number] Authorized 08/25/2023 08/24/2024 1 1 [facility] Work Phone: Chief Complaint LIEGHTON ARCINIEGA is being seen for a 6 [...] DATE CREATED AUTHOR AUTHOR'S ORGANIZ ATION 11/05/2022 [facility] DATE CREATED AUTHOR AUTHOR'S ORGANIZ ATION 01/18/2024 [facility] EPIC DATE CREATED AUTHOR AUTHOR'S ORGANIZ ATION 02/21/2024 [facility] DATE CREATED AUTHOR AUTHOR'S ORGANIZ ATION 03/04/2024 [facility] DATE CREATED AUTHOR AUTHOR'S ORGANIZ ATION 04/02/2024 [facility] DATE CREATED AUTHOR AUTHOR'S ORGANIZ ATION 04/07/2024 [facility] DATE CREATED AUTHOR AUTHOR'S ORGANIZ ATION 04/13/2024 [facility] DATE CREATED AUTHOR AUTHOR'S ORGANIZ ATION 04/27/2024 [facility] DATE CREATED AUTHOR AUTHOR'S ORGANIZ ATION 04/28/2024 [facility] Reason for Visit (unrecogniz ed section and content) Reason Comments Follow-up 6-9mo Reason Comments Follow-up 6-9 months Specialty Diagnoses / Procedures Referred By Contac t Referred To Contact Cardiology Diagnoses Sick sinus syndrome (Multi) Procedures Follow Up In Cardiology Varghese Caal MD [address] [place] [address] Varghese Caal MD [address] [place] [address], [address] [address] Referral ID Status Reason Start Date Expiration Date V isits Requested Visits Authorized [id number] Authorized 02/10/2023 02/10/2024 1 1 Reason Comments Skin Check Follow-up Reason Comments Follow-up 6-9 months Specialty Diagnoses / Procedures Referred By Contac t Referred To Contact Cardiology Diagnoses Sick sinus syndrome (Multi) Procedures Follow Up In Cardiology Varghese Caal MD Traboulssi, Mourhaf, MD [address] [place] [address] Phone: tel: fax: Referral ID Status Reason Start Date Expiration Date V isits Requested Visits Authorized [id number] Authorized 08/25/2023 08/24/2024 1 1 Reason Comments Sleep Apnea Care Teams (unrecognized sec tion and content) Beam Racker Relationship Specialty Start Date End Date Andrea Espinoza DO [address] [place] [id number] PCP - General 03/22/99 Beam Racker Relationship Specialty Start Date End Date Andrea Espinoza DO [address] [place] [address] PCP - General 03/22/99 Beam Racker Relationship Specialty Start Date End Date Lori Medina MD [address] [place] [address] PCP - General Family Medicine 10/09/22 Beam Racker Relationship Specialty Start Date End Date Andrea Espinoza DO [address] [place] [address] PCP - General 03/22/99 Beam Racker Relationship Specialty Start Date End Date Lori Medina MD [address] [place] [address] PCP - General Family Medicine 10/09/22 Beam Racker Relationship Specialty Start Date End Date Lori Medina MD [address] [place] [address] PCP - General Family Medicine 10/09/22 Team [...] THE PRIMARY CLINICAL RECORDS. [facility] [employer] [facility]. provides no warranty or guarantee of the accuracy or completeness of information in this document.
--- NOTE | 2024-05-02 22:45 | ECG_ITS ---
The [facility] Test Date: 2024-05-02 Pat Name: LEIGHTON ARCINIEGA Department: Room: - Gender: Male Provider Relations Rep: : 1945 Requested By: LORI MEDINA Order Number: [id number] Reading MD: LORI MEDINA Measurements Intervals [place] Rate: 70 P: -[id number] MI: -[id number] QRS: -66 QRSD: 178 T: 102 QT: 490 QTc: 511 Interpretive Statements Electronic Ventricular pacemaker Electronically Signed On 05-05-2024 5:24:51 EST by LORI MEDINA
--- NOTE | 2024-05-02 22:45 | XR_ITS ---
The [address] [address] Patient Name: LEIGHTON ARCINIEGA MRN: [id number] date: 1945 Sex: M Assigned Patient Location: ER Current Patient Location: ER Accession/Order Number: [id number] Exam Date: 05/02/2024 22:50 Report Date: 05/03/2024 00:00 At the request of: CHRISTINE SYKES Procedure: XR chest 1V EXAM: XR chest 1V HISTORY: SOB COMPARISON: Chest radiographs dated 04/27/2024. TECHNIQUE: One view of the chest. FINDINGS: A left chest cardiac pacemaker device is in place. The cardiac silhouette is normal in size. There are patchy opacities in both lungs. There is no significant pneumothorax. There are suspected small pleural effusions. No acute osseous abnormality is seen. XR/XR chest 1V IMPRESSION: 1. Findings concerning for multifocal pneumonia. 2. Small pleural effusions. Electronically authenticated by: Nicole MATHEW Date: 05/03/2024 00:00
--- NOTE | 2024-05-02 22:45 | ED.GENADUL1 ---
HPI HPI - General Adult General Chief complaint: Shortness of Breath/Dyspnea Stated complaint: Shortness of Breath Time Seen by Provider: 05/02/24 22:35 Source: patient Mode of arrival: Wheelchair Limitations: no limitations History of Present Illness HPI narrative: 78-year-old male presents to the emergency department for shortness of breath and swelling in his ankles. He was discharged from this hospital about 10 days ago and is still on antibiotics, he had been admitted for pneumonia. He has been coughing up a small amount of phlegm. He has been taking all of his medications and has not had a known fever. Related Data Home Medications ?Medication ?Instructions ?Recorded ?Confirmed acetaminophen 500 mg capsule 1,000 mg PO Q6H PRN fever or pain 02/26/24 04/15/24 allopurinol 300 mg tablet 300 mg PO DAILY 02/26/24 04/15/24 amlodipine 10 mg tablet 10 mg PO DAILY 02/26/24 04/15/24 apixaban 5 mg tablet (Eliquis) 5 mg PO Q12H 02/26/24 04/15/24 aspirin 81 mg tablet,delayed 81 mg PO .weekly 02/26/24 04/15/24 release (Adult Aspirin Regimen) calcium 315 mg (as 1 tab PO DAILY 02/26/24 04/15/24 citrate)-vitamin D3 5 mcg (200 unit) tablet (Calcium Citrate + D) carvedilol 6.25 mg tablet 6.25 mg PO Q12H 02/26/24 04/15/24 cyanocobalamin (vitamin B-12) 1,000 mcg PO DAILY 02/26/24 04/15/24 1,000 mcg tablet (Vitamin B-12) ferrous sulfate 325 mg (65 mg 325 mg PO DAILY 02/26/24 04/15/24 iron) tablet (iron) furosemide 20 mg tablet 20 mg PO Q12H 02/26/24 04/15/24 glipizide 10 mg tablet 10 mg PO BID 02/26/24 04/15/24 hydralazine 50 mg tablet 100 mg PO Q8H 02/26/24 04/15/24 insulin glargine 100 unit/mL (3 26 unit subcut BID 02/26/24 04/15/24 mL) subcutaneous pen multivitamin (Daily Multi-Vitamin 1 tab PO DAILY 02/26/24 04/15/24 tablet) omeprazole 20 mg capsule,delayed 20 mg PO DAILY 02/26/24 04/15/24 release semaglutide 1 mg/dose (4 mg/3 mL) 1 mg subcut QWEEK 02/26/24 04/15/24 subcutaneous pen injector (Ozempic) sildenafil 100 mg tablet 100 mg PO Q24H PRN sexual activity 02/26/24 04/15/24 simvastatin 20 mg tablet 20 mg PO DAILY 02/26/24 04/15/24 spironolactone 25 mg tablet 25 mg PO DAILY 02/26/24 04/15/24 tacrolimus 0.1 % topical ointment 1 applic topical Q12H PRN skin 02/26/24 04/15/24 irritation terazosin 10 mg capsule 10 mg PO BEDTIME 02/26/24 04/15/24 diclofenac sodium 1 % topical gel 2 g topical BID 04/05/24 04/15/24 ruxolitinib 1.5 % topical cream 1 applic topical BID PRN dermatitis 04/05/24 04/15/24 (Opzelura) tolterodine 2 mg capsule,extended 2 mg PO Q24H 04/05/24 04/15/24 release 24 hr fluconazole 200 mg tablet 400 mg PO Q24H 04/16/24 04/16/24 Previous Rx's ?Medication ?Instructions ?Recorded hyoscyamine sulfate 0.125 mg 0.125 mg sublingual QID #40 tabs 03/30/24 sublingual tablet mirabegron 25 mg tablet,extended 25 mg PO DAILY #30 tabs 03/30/24 release 24 hr (Myrbetriq) benzonatate 100 mg capsule 200 mg (2 x 100 mg) PO Q8H PRN 04/08/24 Cough #24 caps cefdinir 300 mg capsule 600 mg (2 x 300 mg) PO DAILY #20 04/22/24 caps clindamycin HCl 300 mg capsule 300 mg PO QID 10 days #40 caps 04/22/24 prednisone 10 mg tablet 40 mg (4 x 10 mg) PO DAILY #32 tabs 04/22/24 Allergies Allergy/AdvReac Type Severity Reaction Status Date / Time fosinopril (From Monopril) Allergy Severe shortness Verified 05/02/24 22:19 of breath metoprolol Allergy Severe shortness Verified 05/02/24 22:19 of breath strawberry Allergy Severe Rash Verified 05/02/24 22:19 Opioid HPI Opioid Management Most Recent Opioid Data: Last Pain Scale 2 04/22/24 10:56 04/22/24 Last Pain Intensity 4 04/22/24 10:56 04/22/24 Last ORT Total Score 6 04/15/24 22:35 04/15/24 Last ORT Risk Category Moderate Risk 04/15/24 22:35 04/15/24 Review of Systems ROS Narrative A ten point review of systems is negative except as noted above. [facility] Medical History (Updated 05/03/24 @ 00:54 by Hector Vasquez MD) Hospital acquired PNA ?J18.9 - Pneumonia, unspecified organism (ICD-10) ?Y95 - Nosocomial condition (ICD-10) Acute on chronic diastolic (congestive) heart failure ?I50.33 - Acute on chronic diastolic (congestive) heart failure (ICD-10) Shortness of breath ?R06.02 - Shortness of breath (ICD-10) Congestive heart failure ?I50.9 - Heart failure, unspecified (ICD-10) Pneumonia ?J18.9 - Pneumonia, unspecified organism (ICD-10) Severe sepsis ?A41.9 - Sepsis, unspecified organism (ICD-10) ?R65.20 - Severe sepsis without septic shock (ICD-10) COPD exacerbation ?J44.1 - Chronic obstructive pulmonary disease with (acute) exacerbation (ICD-10) Acute exacerbation of chronic heart failure ?I50.9 - Heart failure, unspecified (ICD-10) Acute hypoxemic respiratory failure ?J96.01 - Acute respiratory failure with hypoxia (ICD-10) Acute kidney injury ?N17.9 - Acute kidney failure, unspecified (ICD-10) Bladder spasm ?N32.89 - Other specified disorders of bladder (ICD-10) Urinary tract infection ?N39.0 - Urinary tract infection, site not specified (ICD-10) Urinary tract infection ?N39.0 - Urinary tract infection, site not specified (ICD-10) Failure of outpatient treatment ?Z78.9 - Other specified health status (ICD-10) Urinary tract infection ?N39.0 - Urinary tract infection, site not specified (ICD-10) Skin cancer ?C44.90 - Unspecified malignant neoplasm of skin, unspecified (ICD-10) Myocardial infarction ?I21.9 - Acute myocardial infarction, unspecified (ICD-10) Pacemaker ?Z95.0 - Presence of cardiac pacemaker (ICD-10) CKD (chronic kidney disease) ?N18.9 - Chronic kidney disease, unspecified (ICD-10) CAD (coronary artery disease) ?I25.10 - Atherosclerotic heart disease of [place] coronary artery without angina pectoris (ICD-10) A-fib ?I48.91 - Unspecified atrial fibrillation (ICD-10) Erectile dysfunction ?N52.9 - Male erectile dysfunction, unspecified (ICD-10) UTI (urinary tract infection) ?N39.0 - Urinary tract infection, site not specified (ICD-10) GERD (gastroesophageal reflux disease) ?K21.9 - Gastro-esophageal reflux disease without esophagitis (ICD-10) Hypertension ?I10 - Essential (primary) hypertension (ICD-10) Diabetes ?E11.9 - Type 2 diabetes mellitus without complications (ICD-10) Surgical History History of arthroscopic knee surgery ?Z98.890 - Other specified postprocedural states (ICD-10) Hx of tonsillectomy ?Z90.89 - Acquired absence of other organs (ICD-10) Family History Mother Family history of CHF (congestive heart failure) Family history of myocardial infarction Family history of hypertension Family history of diabetes mellitus Family history of COPD (chronic obstructive pulmonary disease) Grandmother Family history of CHF (congestive heart failure) Brother Family history of CHF (congestive heart failure) Family history of myocardial infarction Family history of hypertension Family history of COPD (chronic obstructive pulmonary disease) Father Kidney failure Social History Within the past year, how often did you have a drink containing alcohol: never Score interpretation: A score less than 4 is consistent with normal alcohol consumption. Smoking status: Former smoker Non-prescribed substance use: denies use Known occupational exposures/hazards: No Highest level of school completed/degree received: some college, no degree Do you want help with school or training: No Little interest or pleasure in doing things: not at all Feeling down, depressed, or hopeless: not at all Gender Identity: male Exam Narrative Exam Narrative: Nurses note and vital signs reviewed and patient is not hypoxic. General: The patient appears well and in no apparent distress. Patient is resting comfortably on cart. Skin: Warm, dry, no pallor noted. There is no rash noted. Head: Normocephalic, atraumatic Eye: Normal conjunctiva, no drainage Ears, Nose, Mouth, and Throat: oral mucosa is moist. Nares patent. Cardiovascular: Regular Rate and Rhythm Respiratory: Patient is in no distress, no accessory muscle use, Lungs: Some rales at the bases, breath sounds are equal bilaterally, good air movement Back: non-tender, no CVA tenderness bilaterally to percussion. GI: Normal bowel sounds, no tenderness to palpation, no masses appreciated. No rebound, guarding, or rigidity noted. Musculoskeletal: The patient has no evidence of calf tenderness, he has symmetric bilateral lower extremity edema Neurological: A&O, normal speech Psychiatric: Cooperative Constitutional Vital Signs, click to edit/add: Last Vital Signs Temp 98.4 F 05/02/24 22:19 Pulse 74 05/03/24 00:40 Resp 14 05/03/24 00:40 BP 129/82 05/03/24 00:30 Pulse Ox 93 L 05/03/24 00:40 O2 Del Method Nasal Cannula 05/02/24 22:19 O2 Flow Rate 2 05/02/24 22:19 Course Vital Signs Vital signs: Vital Signs Temperature 98.4 F 05/02/24 22:19 Pulse Rate 74 05/02/24 22:19 Respiratory Rate 19 05/02/24 22:19 Blood Pressure 112/81 05/02/24 22:19 Pulse Oximetry 96 05/02/24 22:19 Oxygen Delivery Method Nasal Cannula 05/02/24 22:19 Oxygen Delivery Flow Rate 2 05/02/24 22:19 Temperature 98.4 F 05/02/24 22:19 Pulse Rate 74 05/03/24 00:40 Respiratory Rate 14 05/03/24 00:40 Blood Pressure 129/82 05/03/24 00:30 Pulse Oximetry 93 L 05/03/24 00:40 Oxygen Delivery Method Nasal Cannula 05/02/24 22:19 Oxygen Delivery Flow Rate 2 05/02/24 22:19 Medical Decision Making MDM Narrative Medical decision making narrative: Chest x-ray per radiologist shows multifocal pneumonia. BNP is elevated but it has been elevated for an extended period of time. Blood cultures were obtained and he was given IV Rocephin and Zithromax and nebulized albuterol treatment as well. He is being admitted. Treatment diagnosis and disposition were discussed with the family. Differential Diagnosis Differential Diagnosis: Pneumonia, COVID, influenza, CHF Lab Data Lab results reviewed: Yes I reviewed the patient's lab results Labs: Lab Results 05/02/24 05/02/24 05/03/24 Range/Units 22:50 23:22 00:34 WBC 11.8 H (4.0-11.0) 10^3/uL RBC 3.12 L (4.70-6.10) 10^6/uL Hgb 10.2 L (14.0-18.0) g/dL Hct 30.1 L (42.0-54.0) % MCV 96.5 H (80.0-94.0) fL MCH 32.7 (25.9-34.0) pg MCHC 33.9 (29.9-35.2) g/dL RDW 16.2 H (11.0-15.0) % Plt Count 226 (150-450) 10^3/uL MPV 9.0 L (9.5-13.5) fL Seg Neuts % (Manual) 87.0 H (43.0-75.0) Lymphocytes % (Manual) 6.0 L (20.5-60.0) % Atypical Lymphs % (Man) 1.0 % Monocytes % (Manual) 6.0 (1.7-12.0) % Eosinophils % (Manual) 0.0 L (0.9-7.0) % Basophils % (Manual) 0.0 L (0.2-2.0) % Neutrophils # (Manual) 10.26 H (1.4-6.5) 10^3/uL Lymphocytes # (Manual) 0.70 L (1.20-3.80) 10^3/uL Abs Atypical Lymphs Man 0.11 Monocytes # (Manual) 0.70 (0.30-0.80) 10^3/uL Eosinophils # (Manual) 0.00 (0.00-0.70) 10^3/uL Basophils # (Manual) 0.00 (0.00-0.10) 10^3/uL Sodium 133 L (136-145) mmol/L Potassium 4.9 (3.5-5.1) mmol/L Chloride 100 (98-107) mmol/L Carbon Dioxide 25.2 (21.0-32.0) mmol/L Anion Gap 12.7 BUN 38.0 H (7.0-18.0) mg/dL Creatinine 1.76 H (0.70-1.30) mg/dL Est GFR ( Amer) 46 L (>=60 mL/min/1.73m^2) Est GFR (Non-Af Amer) 38 L (>=60 mL/min/1.73m^2) BUN/Creatinine Ratio 21.6 Glucose 137 H (74-106) mg/dL Lactate 1.1 (0.4-2.0) mmol/L Calcium 8.4 L (8.5-10.1) mg/dL Troponin I High Sens 39.7 (4.0-76.1) pg/mL NT-Pro-B Natriuret Pep >74406.0 H* (<=1800.0) pg/mL Influenza Type A Ag Negative Influenza Type B Ag Negative SARS-CoV-2 Ag (CV2AG) Negative (NEGATIVE) Imaging Data Chest x-ray: Radiologist's impression: ITS Impressions Chest X-Ray 05/02/24 22:45 IMPRESSION: 1. Findings concerning for multifocal pneumonia. 2. Small pleural effusions. Electronically authenticated by: Nicole MATHEW Date: 05/03/2024 00:00 ECG Data Attestation: I personally reviewed and interpreted this ECG as follows: (EKG on my interpretation shows a rate of 70 and paced rhythm) Discharge Plan Discharge Chief Complaint: Shortness of Breath/Dyspnea Clinical Impression: Pneumonia Patient Disposition: Admitted As Inpatient Time of Disposition Decision: 00:54 Condition: Fair
[2024-05-02 23:25] LABS: Hematocrit 30.1 % (42.0-54.0); Hemoglobin 10.2 g/dL (14.0-18.0); Mean Corpuscular HGB Conc 33.9 g/dL (29.9-35.2); Mean Corpuscular Hemoglobin 32.7 pg (25.9-34.0); Mean Corpuscular Volume 96.5 fL (80.0-94.0); Platelet Count 226 10^3/uL (150-450); Red Blood Count 3.12 10^6/uL (4.70-6.10); Red Cell Distribution Width 16.2 % (11.0-15.0); White Blood Count 11.8 10^3/uL (4.0-11.0)
[2024-05-02 23:43] LABS: Internal Control Within Normal Limits; SARS-CoV-2 Ag NEGATIVE (NEGATIVE)
[2024-05-02 23:43] LABS: Atypical Lymphocytes Abs Man 0.11; Segmented Neut Absolute Manual 10.26 10^3/uL (1.4-6.5)
[2024-05-02 23:46] LABS: Anion Gap 12.7; BUN Creatinine Ratio 21.6; Calcium 8.4 mg/dL (8.5-10.1); Carbon Dioxide 25.2 mmol/L (21.0-32.0); Chloride 100 mmol/L (98-107); Estimated GFR (African America 46 (>=60 mL/min/1.73m^2); Estimated GFR (Non-African Ame 38 (>=60 mL/min/1.73m^2); Glucose 137 mg/dL (74-106); Potassium 4.9 mmol/L (3.5-5.1); Sodium 133 mmol/L (136-145); Troponin I High Sensitivity 39.7 pg/mL (4.0-76.1)
[2024-05-02 23:50] LABS: NT Pro B Type Natriuretic Pept >35000.0 pg/mL (<=1800.0)
[2024-05-03] VITALS (29 sets, daily range): BP systolic 114–144; BP diastolic 57–83; PULSE 68–112; TEMP 36.4–36.8; O2SAT 90–94; BMI 31.2
[2024-05-03] MEDS: CEFTRIAXONE 1,000 MG in 0.9 % SODIUM CHLORIDE 50 ML 100 MG IV (00:47)
[2024-05-03 00:52] LABS: Influenza Virus A Antigen Negative; Influenza Virus B Antigen Negative; Internal Control Within Normal Limits
[2024-05-03 00:53] LABS: Lactate/Lactic Acid 1.1 mmol/L (0.4-2.0)
[2024-05-03] MEDS: ALBUTEROL SULFATE 2.5 MG/3 ML VIAL NEB IH (00:59)
[2024-05-03] MEDS: AZITHROMYCIN 500 MG in 0.9 % SODIUM CHLORIDE 250 ML 250 MG IV (01:11)
--- OUTSIDE RECORDS SUMMARY | 2024-05-03 01:31 | XMS_ITS | CCD ---
Author Organization [facility] Care Team Providers Care Press Writer Name Role Phone Andrea Espinoza Unavailable Unavailable [...] Provider Lori Medina MD Primary Care Provider [phone] BLANCA ALONSO Attending Unavailable BLANCA ALONSO Attending Unavailable DANK JONES Attending Unavailable BLANCA ALONSO Attending Unavailable BLANCA ALONSO Attending Unavailable BOBO BRENNER Attending Unavailable LORI MEDINA Primary Care Unavailable LORI MEDINA Primary Care Unavailable BEATA DEGROOT Attending Unavailable Andrea Espinoza DO Primary Care Provider [phone] VARGHESE CAAL P Attending Unavailable AFUA VARGHESE [...] Enalapril; 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: [enalapril] Drug Allergy 02-10-20 Cough [facility] (18 sources) Metoprolol; 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: [metoprolol] Drug Allergy 10-12-19 23 Cough, Unknown -[facility] y 250 DO Work Phone: (4 sources) Fosinopril; 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: [Monopril] Drug Allergy 03-16-20 14 [facility] Repository (1 source) Metoprolol Drug Allergy 05-16-19 15 [facility] Repository (1 source) strawberry allergenic extract Drug Allergy 05-16-19 15 [facility] Repository (1 source) tomato allergenic extract Drug Allergy 05-16-19 15 [facility] Repository (6 sources) Fosinopril; 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: [FOSINOPRIL] Drug Allergy 10-12-19 23 Unknown [facility] Work Phone: (3 sources) hydroCHLOROthiazide / Metoprolol; 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: [hydrochlorothiazide-m etoprolol] Drug Allergy [facility] Repository (3 sources) Usk; 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: [Strawberries] Food allergy (disorder) [facility] Rep[facility] (3 sources) Tomatoes; 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: [Tomatoes] Food allergy (disorder) [facility] Rep[facility] Medications Current Medications Medication Drug [...] Start: 03-20-2020 take 2 tablets by mo [facility] three times daily hydrALAZINE HCl - 50 [...] sources) Polyene Antifungal Start: 08-10-2023 nystatin (Mycostatin) 086722 UNIT/GM powder Indications: Erythema intertrigo Apply to [...] 0.4 mg oral capsule (7 sources) alpha-Adrenergic [place] Start: 05-07-2023 End: 03-01-2024 tamsulosin (Flomax) 0.4 [...] disease (2 sources) Atherosclerotic heart disease of [place] coronary artery without angina pectoris; 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: [Old [...] 06-01-2022 10-11-2022 Chronic Other aftercare (1 source) 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 [address] 2024 11:00 AM EDT With: Where: [facility] You Need to Schedule the Following Appointments Follow Up with Mica Car MD, URL, URO When: Where: Medications What How Much When Instructions New finasteride (finasteride 5 mg Tab) 1 Tablets By Mouth Every day Refills: 11 Pickup at [facility] #24078 Unchanged terazosin (terazosin 10 mg Cap) 1 [...] Duration: 3 (more content not included)... Normal [facility] Urology Office/Clinic Noteon 04-26-2024 Urology Office/Clinic [...] unspecified) Pt states he was admitted at [facility] x 4 days due to PNA, Gomez removed and discharged 04/08/24. Pt states he presented back to [facility] ER due to UR. Gomez placed, PVR [...] scan, ~ 80 g) S/p Rezum by [facility] 02/14/24 - 9 treatments, Rt side [...] further bleeding since then. Pt went to [place] ER 02/26/24 d/t persistent dysuria. Admitted for 3 days. Received IV abx. Dc'd on Cipro x 10d and Levsin. Urine and blood cx both came back neg. [facility] ER 04/08/24 U.Cx was negative. Pt had an infection at the time of him being admitted in the hospital, is currently on abx. Advised pt to continue to abx that was given at the time of the ER visit. Started on Levaquin 500mg qd x3 wks 04/12/24. -Complete ATB course -See #3 5. 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 Elevated risk [...] DM (diabetes (more content not included)... Normal [facility] Comment on above: Result Comment: Elec [...] AM EST With: Where: [facility] [address] [place] [address] [place] [address]- Wednesday 1:00 PM EST With: Mica Car MD Where: [facility] [address] [address] 2024 11:00 AM EDT With: Where: [facility] You Need to Schedule the Following Appointments Follow Up with Mica Car MD, URL, URO When: In 1 month Comments: w/PVR Where: Medications What How Much When Instructions New levofloxacin (Levaquin 500 mg Tab) 1 Tablets By Mouth Every 24 hours Duration: 3 Weeks Pickup at [facility] #31398 Unchanged acetaminophen (Tylenol Extra Strength 500 mg [...] 3 time (more content not included)... Normal [facility] Urology Office/Clinic Noteon 04-12-2024 Urology Office/Clinic Note Urology Office/Clinic Note Chief Complaint 1 mth f/u HPI Staff 78yr old male pt here for 1mo f/u with PVR. S/p Cystoscopy, TRUS 01/27/2024, Rezume done on 02/14/24 w/ Dr. Car. Previous Dx: uti, BPH with urinary obstruction, anticoagulated *terazosin 10 mg qd, sildenafil 100mg PRN pt has Gomez. Pt states he was in [facility] for 4 days for pneumonia, Wednesday he was released and Gomez was taken out. Pt then states he could not urinate so he went back to [facility] and they placed the Gomez. History [...] has Gomez. Pt states he was in [facility] for 4 days for pneumonia, Wednesday he was released and Gomez was taken out. Pt then states he could not urinate so he went back to [facility] and they placed the Gomez, PVR [...] further bleeding since then. Pt went to [place] ER 02/26/24 d/t persistent dysuria. Admitted for 3 days. Received IV abx. Dc'd on Cipro x 10d and Levsin. Urine and blood cx both came back neg. [facility] ER 04/08/24 U.Cx was negative. Pt [...] be stoppe (more content not included)... Normal [facility] Comment on above: Result Comment: Elec tronically Signed By: Mica Car MD\.br\Date and Time Signed: 04/12/24 12:07 EST\.br\Electronically Co-Signed By: Kavita Mukherjee\.br\Date and Time Co-Signed: 04/12/24 11:48 EST Urine Cultureon 03-28-2024 Bacteria identified Cx Nom (U) No Growth 2 Days PERFORMED BY: [place] [address] PATHOLOGIST SHOWROOM SALES ASSISTANT OSCAR ESCOBAR M.D. Normal [facility] Comment on above: Performed By: #### C UU #### [address] C Urineon 03-26-2024 Bacteria identified Cx [...] Locations R1: This test was performed at: [facility], [address] [place] [address], [id number]- , [place], [facility] Comment on above: Performed By: #### 2 [id number] #### [facility] [address] [place] [address] Main OR Preoperative Recordo n 03-20-2024 Main OR Preoperative Record Main OR Preoperative Record Holding Area Document Type FTURO Summary Primary Physician: Mica Car MD Finalized Date/Time: 03/20/24 16:29:34 Pt. Name: LEIGHTON ARCINIEGA /Sex: 1945 Male Med Rec #: [id number] Physician: Mica Car MD Financial #: [id number] Pt. Type: O Room/Bed: / Admit/Disch: 12/27/23 [...] Complaints of Pain: No Skin Integrity Intact, Tri-Lakes, Warm, & Dry Vitals - EU Blood Pressure 122/75 Pulse 81 bpm Respirations 18 br/min SPO2 96 % Additional None RN Reviewed Yes Specimens Collected Last Modified By: Ankita Gray RN 12/27/23 11:25:48 Finalized By: MICHELLE Marks RN, Ruthann Document Signatures Signed By: Latha David LPN 12/27/23 11:01 Latha David LPN 12/27/23 11:02 Kendrick GODINEZ, Dalia MARTINEZ 03/20/24 16:29 Normal [facility] Urine Cultureon 03-11-2024 Bacteria identified Cx Nom (U) ORGANISM: Prudence glabrata (O:CANGLA) [place] Count 75,000 PERFORMED BY: [facility] [address] [place] [id number] PATHOLOGIST SHOWROOM SALES ASSISTANT OSCAR ESCOBAR M.D. Normal [facility] Comment on above: Performed By: #### C UU #### [facility] [address] [place], [place] [id number] [facility] Urine cultureOrdered By: Derek Vasquez on 03-11-2024 Bacteria identified Cx Nom (U) Abnormal [facility] Urology Office/Clinic Noteon 03-02-2024 Urology Office/Clinic [...] that he had 3 day stay at [facility] on 02/26/24 for severe UTI & [...] further bleeding since then. Pt went to [place] ER 02/26/24 d/t persistent dysuria. Admitted for [...] 124ml Told him to continue Alfuzosin. Ordered: 15452 Measure Post Void residual urine and/or bladder [...] Urnls Dip Stick Auto w/o Microscopy POC 67940 3. Anticoagulated (Z79.01: penitentiary (current) use of anticoagulants) on Eliquis. Follow-up [...] Hypercholesteremia Inco (more content not included)... Normal [facility] Comment on above: Result Comment: Elec tronically Signed By: NATA TA PA-C.br\Date and Time Signed: 03/02/24 17:13 EST\.br\Electronically Co-Signed By: Martir Sheabr\Date and Time Co-Signed: 03/02/24 13:38 EST ECG 12 Leadon 03-01-2024 AV paced rhythm [facility] Work Phone: URINE CULTUREon 02-19-2024 Bacteria identified Cx Nom (U) CULTURE RESULTS 10-50,000 ORGANISMS/mL NORMAL UROGENITAL ELIN Normal [facility] Comment on above: Performed By: #### 6 30-4 #### [facility] ([id number]) [address] [place] [address], [address] [place] [address] URN MACROSCOPIC NURon 2023 BILIRUBIN LETHA Negative Normal NEG [facility] Comment on above: Performed By: #### N UM #### [facility] ([id number]) [address] [place] [address] BLOOD/HGB LETHA Large Abnormal NEG [facility] Comment on above: Performed By: #### N UM #### [facility] ([id number]) [address] [place] [address] GLUCOSE LETHA >=1000 Abnormal NEG [facility] Comment on above: Performed By: #### N UM #### [facility] ([id number]) [address] [place] [address] KETONES LETHA Negative Normal NEG [facility] Comment on above: Performed By: #### N UM #### [facility] ([id number]) [address] [place] [address] LEUKOCYTE ESTERASE LETHA Small Abnormal NEG [facility] Comment on above: Performed By: #### N UM #### [facility] ([id number]) [address] [place] [address] NITRITE LETHA Negative Normal NEG [facility] Comment on above: Performed By: #### N UM #### [facility] ([id number]) [address] [place] [address] PH LETHA 6.0 Normal 5.0-8.5 [facility] Comment on above: Performed By: #### N UM #### [facility] ([id number]) [address] [place] [address] PROTEIN LETHA 100 mg/dL Abnormal NEG [facility] Comment on above: Performed By: #### N UM #### [facility] ([id number]) [address] [place] [address] SPECIFIC GRAVITY LETHA 1.015 Normal 1.003-1.035 [facility] Comment on above: Performed By: #### N UM #### [facility] ([id number]) [address] [place] [address] UROBILINOGEN LETHA 0.2 eu/dL Normal <1.1 [facility] Comment on above: Performed By: #### N UM #### [facility] ([id number]) [address] [place] [address] Inpatient Patient Summaryon 02-14-2024 Inpatient Patient Summary Inpatient Patient Summary [address] [address] Clinical Summary Person Information Name: LEIGHTON ARCINIEGA Age: 78 Years : 1945 Sex: Male PCP: Lori Medina MD Marital Status: Race: White Ethnicity: Non- or Language: Montserratian Visit Id: Visit Reason: BPH WITH URINARY OBSTRUCTION Speciality: Acuity: Enc Type: Outpatient Med Service: Surgery Arrival: 02/14/2024 09:35:51 Discharge: Dispo Type: Address: [address] [place] [address] DR TONEY [address] [place] [id number] Provider Notes: Diagnosis: BPH with obstruction/lower urinary [...] day as needed for pain. acetaminophen-hydroc odone (Midland 325 mg-5 mg oral tablet) 1 Tablets [...] Information: EU - Rezum Discharge Instructions (CUSTOM) [facility] Main OR Intraoperative Recor don 02-14-2024 Main OR Intraoperative Record Main OR Intraoperative Record IntraOp Document Type FTURO Summary Primary Physician: Mica Car MD Finalized Date/Time: 02/14/24 12:08:58 Pt. Name: LEIGHTON ARCINIEGA/Sex: 1945 Male Med Rec #: [id number] Physician: Mica Car MD Financial #: [id number] Pt. Type: O Room/Bed: / Admit/Disch: 02/14/24 [...] Kimberly A Role Performed Surgeon - Primary Associate Professor Of Physics - Primary Scrub - Primary Time In 02/14/24 11:45:00 02/14/24 11:45:00 02/14/24 11:45:00 Time Out 02/14/24 12:07:00 02/14/24 12:07:00 02/14/24 12:07:00 Procedure CYSTOSCOPY LOCAL CYSTOSCOPY LOCAL CYSTOSCOPY LOCAL REZUM(.) REZUM(.) REZUM(.) Comments Last Modified By: Jcoy Corral Kelsie E Burgderfer, Kelsie E 02/14/24 [...] Corral 02/14/24 12:08 Jocy Corral 02/14/24 12:08 [facility] Main OR Preoperative Recordo n 02-14-2024 Main OR Preoperative Record Main OR Preoperative Record Holding Area Document Type FTURO Summary Primary Physician: Mica Car MD Finalized Date/Time: 02/14/24 11:48:27 Pt. Name: LEIGHTON ARCINIEGA /Sex: 1945 Male Med Rec #: [id number] Physician: Mica Car MD Financial #: [id number] Pt. Type: O Room/Bed: / Admit/Disch: 02/14/24 [...] Complaints of Pain: No Skin Integrity Intact, Tri-Lakes, Warm, & Dry Vitals - EU Blood Pressure 152/74 Pulse 61 bpm Respirations 18 br/min SPO2 97 % Additional None RN Reviewed Yes Specimens Collected Last Modified By: Jocy Corral 02/14/24 11:48:23 Finalized By: Jocy Corral Document Signatures Signed By: Latha David LPN 02/14/24 11:05 Jocy Corral 02/14/24 11:48 Jocy Corral 02/14/24 11:48 Normal [facility] Operative Reporton Operative Report Operative Report [...] clearer. Follow-up in 1 month PVR.. Normal [facility] Comment on above: Result Comment: Elec tronically Signed By: Josep SANDHU, Mica Johns\.br\Date and Time Signed: 02/14/24 12:03 EST Outpatient Surgery Discharge Instructionon 02-14-2024 Outpatient Surgery Discharge Instruction Outpatient Surgery Discharge Instruction [place] [id number] Patient Discharge Instructions PERSON INFORMATION Name: LEIGHTON [...] there (more content not included)... Normal [facility] Ambulatory Visit Summaryon 1 04-01-2023 Ambulatory [...] Strength 500 mg oral tablet) acetaminophen-hydroc odone (Midland 325 mg-5 mg oral tablet) allopurinol (allopurinol [...] if questions or concerns Unchanged acetaminophen-hydroc odone (Midland 325 mg-5 mg oral tablet) 1 Tablets [...] omeprazole (omep (more content not included)... Normal [facility] Urology Office/Clinic Noteon 01-31-2024 Urology Office/Clinic Note Urology Office/Clinic Note Chief Complaint [facility] follow [facility] HPI Staff 78 year old male patient presents today for a [facility] ER follow up 01/23/24. Pt has gomez. [...] with voice recognition artificial intelligence software, specifically [employer] and or [employer]. Substitutions may have occurred due to the [...] (N52.9: Male erectile dysfunction, unspecified) Hx of [place] in 2002. Has pacemaker in place. Denies [...] in medic (more content not included)... Normal [facility] Comment on above: Result Comment: Elec tronically Signed By: MICHAEL Sr APRN, Anna Herrera\.br\Date and Time Signed: 01/31/24 16:26 EST URINE CULTUREon 01-24-2024 Bacteria identified Cx Nom (U) CULTURE RESULTS NO GROWTH AT <1000 CFU/mL Normal [facility] Comment on above: Performed By: #### 6 30-4 #### [facility] ([id number]) [address] [place] [address], [address] [place] [address] URN MACROSCOPIC NURon 2023 BILIRUBIN LETHA Negative Normal NEG [facility] Comment on above: Performed By: #### N UM #### [facility] ([id number]) [address] [place] [address] BLOOD/HGB LETHA Trace Abnormal NEG [facility] Comment on above: Performed By: #### N UM #### [facility] ([id number]) [address] [place] [address] GLUCOSE LETHA >=1000 Abnormal NEG [facility] Comment on above: Performed By: #### N UM #### [facility] ([id number]) [address] [place] [address] KETONES LETHA Negative Normal NEG [facility] Comment on above: Performed By: #### N UM #### [facility] ([id number]) [address] [place] [address]757 LEUKOCYTE ESTERASE LETHA Large Abnormal NEG [facility] Comment on above: Performed By: #### N UM #### [facility] ([id number]) [address] [place] [address] NITRITE LETHA Negative Normal NEG [facility] Comment on above: Performed By: #### N UM #### [facility] ([id number]) [address] [place] [address] PH LETHA 6.0 Normal 5.0-8.5 [facility] Comment on above: Performed By: #### N UM #### [facility] ([id number]) [address] [place] [address] PROTEIN LETHA 100 mg/dL Abnormal NEG [facility] Comment on above: Performed By: #### N UM #### [facility] ([id number]) [address] [place] [address] SPECIFIC GRAVITY LETHA 1.015 Normal 1.003-1.035 [facility] Comment on above: Performed By: #### N UM #### [facility] ([id number]) [address] [place] [address] [place] [address] UROBILINOGEN LETHA 0.2 eu/dL Normal <1.[address] [facility] Comment on above: Performed By: #### N UM #### [facility] ([id number]) [address] [place] [address] Inpatient Patient Summaryon 12-27-2023 Inpatient Patient Summary Inpatient Patient Summary [address] [address] Clinical Summary Person Information Name: LEIGHTON ARCINIEGA Age: 78 Years : 1945 Sex: Male PCP: Lori Medina MD Marital Status: Race: White Ethnicity: Non- or Language: Montserratian Visit Id: Visit Reason: BPH WITH URINARY OBSTRUCTION Speciality: Acuity: Enc Type: Outpatient Med Service: Surgery Arrival: 12/27/2023 09:33:05 Discharge: Dispo Type: Address: [facility] [address]INDEN TONEY [address] [facility] [id number] Provider Notes: Diagnosis: Anticoagulated; Other obstructive and [...] day as needed for pain. acetaminophen-hydroc odone (Midland 325 mg-5 mg oral tablet) 1 Tablets [...] Information: EU - Cystoscopy Discharge Instructions (CUSTOM) [facility] Main OR Intraoperative Recor don 12-27-2023 Main OR Intraoperative Record Main OR Intraoperative Record IntraOp Document Type FTURO Summary Primary Physician: Mica Car MD Finalized Date/Time: 12/27/23 11:42:38 Pt. Name: SUZE LEIGHTONMARTÍNEZ [place]/Sex: 1945 Male Med Rec #: [id number] Physician: Mica Car MD Financial #: [id number] Pt. Type: O Room/Bed: / Admit/Disch: 12/27/23 [...] Micky Vargas Role Performed Surgeon - Primary Associate Professor Of Physics - Primary Scrub - Primary Time In [...] Out Mica Car MD, Verified (If Participants Tnude GODINEZ, Ankita Applicable) Hernan Márquez Kendall R [...] By: Ankita Gray RN 12/27/23 11:42 Normal [facility] Operative Reporton Operative Report Operative Report Patient: LEIGHTON ARCINIEGA Age: 78 years Sex: Male : 1945 Associated Diagnoses: None Author: Mica Car MD Procedure Operative Information Details: Date/ Time: 12/27/2023 12:10:00. Pre-Op Dx: BPH w/ LUTS - N40.1. Post-Op Dx: Feeling of incomplete bladder emptying (AIA57-GJ R39.14, Working, Medical), Anticoagulated ([id number]-BG Z79.01, Discharge, Medical), Same. Anesthesia Type: Local. [...] and Valium prior to procedure. 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 -Will need blood thinners held prior to procedure. Elevated risk of bleeding discussed. -Patient did better on terazosin. Will DC tamsulosin and restart terazosin 10 mg daily. [facility] [place] Normal [facility] Comment on above: Result Comment: Elec tronically Signed By: Josep SANDHU, Mica Johns\.br\Date and Time Signed: 12/27/23 12:14 EDT Outpatient Surgery Discharge Instructionon 12-27-2023 Outpatient Surgery Discharge Instruction Outpatient Surgery Discharge Instruction [place] [id number] Patient Discharge Instructions PERSON INFORMATION Name: LEIGHTON [...] When: Mica Car Comments: Office to schedule [facility] Type Location Start Finish State NCV [...] to serve you. Thank you for choosing [facility] Normal [facility] Ambulatory Visit Summaryon 0 11-12-2023 Ambulatory [...] Strength 500 mg oral tablet) acetaminophen-hydroc odone (Midland 325 mg-5 mg oral tablet) allopurinol (allopurinol [...] if questions or concerns Unchanged acetaminophen-hydroc odone (Midland 325 mg-5 mg oral tablet) 1 Tablets [...] Mouth E (more content not included)... Normal [facility] Urology Office/Clinic Noteon 11-12-2023 Urology Office/Clinic [...] (N52.9: Male erectile dysfunction, unspecified) Hx of [place] in 2002. Has pacemaker in place. Denies [...] antigen) Seborr (more content not included)... Normal [facility] Comment on above: Result Comment: Elec tronically Signed By: Mica Car MD\.br\Date and Time Signed: 11/12/23 16:43 EDT\.br\Electronically Co-Signed By: Maria Luz Mejia\.br\Date and Time Co-Signed: 11/12/23 16:14 EDT PTH Intacton 10-15-2023 Parathyrin.intact [Mass/Vol] 49 pg/mL Invalid Interpretation Code 15-65 [facility] Comment on above: Result Comment: Perf ormed at: [facility] [address] [id number] PhD Carlos Singh Performed By: #### 1 [id number] #### [facility] [address] [place] [address] ED Clinical Summaryon 2023 ED Clinical Summary ED Clinical Summary [address] [address] ED Clinical Summary Person Information Name: LEIGHTON ARCINIEGA [facility] Age: 77 Years : 1945 Sex: Male Language: Montserratian PCP: Lori Medina MD Marital Status: Visit [...] 10/14/2023 13:18:55 10/14/2023 13:18:55 ADDRESS: Danie TONEY [address] [place] [phone] PHYS DOC NOTES: MEDICAL INFORMATION: Prescriptions Given: New Medications [id number], [address] [place], [place] [id number], [phone] acetaminophen-hydroc odone (Midland 325 mg-5 mg oral tablet) 1 Tablets [...] EDUCATION INFORMATION: Instructions: Acute Knee Pain, Adult, [id number] Follow up: With: Address: When: Andrea [address] [place] [address] Business (1) In 3 days 10/17/2023 With: Address: When: Call to schedule a follow-up appointment with your orthopedic surgeon. Use the Midland as needed for pain along with icing. . If you are unable to get in with your orthopedic surgeon, I have provided a referral for another one. In 3 days 10/17/2023 With: Address: When: Lori Medina [facility] [place] [address] Business (1) In 3 days DIAGNOSIS: Posterior left knee pain Normal [facility] ED Note-Physicianon 10-14-19 ED Note-Physician ED [...] he previously saw an orthopedic surgeon in [facility] for arthritis in which he will follow-up for further management of care. Patient is on Eliquis therefore I cannot prescribe him naproxen or any form of NSAID. Due to his age I did not feel a muscle relaxer was appropriate either. Based on this he is being prescribed 4 doses of Midland. He was educated on appropriate use of [...] q4hr for pain, 4 tab(s), Refill(s) 0, [facility][id number], 177, cm, 10/14/23 11:44:00 EDT, Height/Length Dosing, 104.8, kg, 10/14/23 11:44:00 EDT, Weight Dosing Disposition Plan Patient Discharge Condition stable Discharge Disposition home Discharge Prescription List Prescriptions Midland 325 mg-5 mg oral tablet, 1 tab(s), Oral, q4hr, PRN Follow-up With When Contact Information Andrea Espana In 3 days 10/17/2023 EDT [address] [place] [address]- Business (1) Additional Instructions: Call to schedule a follow-up appointment with your orthopedic surgeon. Use the [facility] as needed for pain along with icing. . If you are unable to get in with your orthopedic surgeon, I have provided a referral for another one. In 3 days 10/17/2023 EDT Additional Instructions: Lori Medina In 3 days [address] [facility] [place] [address]- Business (1) Additional Instructions: Patient Education Acute Knee Pain, Adult, Hnxk-bf-Fltj Attestation Patient seen and evaluated by the physician engineering assistant. Attending physician was present in the emergency department and supervised care. This visit was performed by both the physician and an APC. I performed all aspects of the MDM as documented. This report was transcribed using voice recognition software. Every effort was made to ensure accuracy, however, inadvertently computerized relays draftsperson mistakes may be present. Appropriate healthcare PPE was used in evaluating this patient. The patient was placed in a mask. The healthcare provider was wearing mask, gloves, and utiliz (more content not included)... [facility] Comment on above: Result Comment: Elec tronically Signed By: Vini Quinteros DO\.br\Date and Time Signed: 10/14/23 16:09 EDT\.br\Electronically Co-Signed By: Nayla William PA-C\.br\Date and Time Co-Signed: 10/14/23 13:46 EDT ED Patient Summaryon 024 ED Patient Summary ED Patient Summary [facility] [address], [place] [address] Patient Discharge Instructions Person Information Name: LEIGHTON ARCINIEGA Age: 77 Years Arrival Date: 10/14/2023 11:36:13 Discharge Diagnosis: Posterior left knee pain Primary Care Physician: Lori Medina MD Provider Information Primary Provider: Vini Quinteros DO Advanced Supervisor Boarding:Nayla William PA-C The exam and treatment you received in the Emergency Department were for an urgent problem and are not intended as complete care. It is important that you follow up with a doctor, nurse practitioner, or physician?s engineering assistant for ongoing care. If your symptoms [...] Follow-up Instructions: With: Address: When: Andrea Espana [address] [place] [id number] Business (1) In 3 days 10/17/2023 With: Address: When: Call to schedule a follow-up appointment with your orthopedic surgeon. Use the [facility] as needed for pain along with icing. . If you are unable to get in with your orthopedic surgeon, I have provided a referral for another one. In 3 days 10/17/2023 With: Address: When: Lori Medina [address] [facility] [place] [address] Business (1) In 3 days In the event that this physician does not participate in your insurance network, please consult with your insurance company to find a nearby participating provider. Patient Education Materials: Acute Knee Pain, Adult, Kwuj-cu-Bnre A MESSAGE TO ALL PATIENTS REGARDING OPIOIDS PRESCRIPTION OPIOIDS: WHAT YOU NEED TO KNOW Prescription opioids can be used to help relieve havfhzak-ew-xmmyrq pain and are often prescribed following a [...] or yo (more content not included)... Normal [facility] XR Knee Complete 4+ Views Le [...] mGy = na DAP = na Normal [facility] Screenson 06-17-2023 Screens [id number] #1.00TIFF Normal [facility] Screens [id number] #1.00TIFF Normal [facility] Ambulatory Visit Summaryon 0 06-16-2023 Ambulatory [...] SANDHU, Mica Johns Where: [facility] Patient Educationon 06-16-19 24 Patient Education [...] these instructions at home: Medicines ? Take nxwd-wyn-nphoozn and prescription medicines only as told by [...] include cig (more content not included)... Normal [facility] Urology Office/Clinic Noteon 06-16-2023 Urology Office/Clinic [...] (N52.9: Male erectile dysfunction, unspecified) Hx of [place] in 2002. Has pacemaker in place. Denies [...] Information Josep SANDHU, Mica Johns, URL, [facility] [address] [place] [address]- [phone] Additional Instructions: Has f/u already scheduled 11/12/23 [...] Co-Signed: 06/16/23 10:48 EDT Screenson 05-10-2023 Screens [id number] #1.00TIFF [facility] Screens [id number] #1.00TIFF [facility] Ambulatory Visit Summaryon 0 05-07-2023 [...] NATA TA PA-C Where: [facility] Normal [address] [place] [address]- \.br\ You Need to Schedule the Following Appointments\.br\ Follow Up with NATA TA PA-C, URL When: \.br\ Comments:\.br\ 1 mos w/ PVR \.br\ Where:\.br\ [address]br\ [place] [address]\.br\ [phone]\.br\ Medications\.br\ What How Much When Instructions\.br\ New tadalafil (tadalafil 10 mg Tab) 1 Tablets By Mouth As Directed as needed for for erectile dysfunction Refills: 3 Take one tab 1 hour prior to sexual activity. Do not exceed 20mg in 48hrs. Pickup at [facility] #[id number]\.br\ New tamsulosin (tamsulosin 0.4 mg Cap) 1 Capsules By Mouth Once a day (in the evening) Refills: 11 Pickup at [facility] #[id number]\.br\ Unchanged acetaminophen (Tylenol Extra Strength 500 mg [...] or concerns \.br\ Pharmacy Information\.br\ [id number]: [address], [place] [phone]\.br\ Allergies\.br\ Monopril (Dry cough)\.br\ Strawberries (rash)\.br\ Tomatoes [...] Symptoms of this condition include:\.br\ ? \ [facility] Ambulatory Visit Summary LEIGHTON ARCINIEGA :1945 [...] med) Where: [address] [place] [phone] Medications What How Much When Instructions Unchanged [...] Every da (more content not included)... Normal [facility] Patient Educationon 05-07-19 Patient Education Urology [...] these instructions at home: Medicines ? Take rhec-wzt-famzgas and prescription medicines only as told by [...] include cig (more content not included)... Normal [facility] Urology Office/Clinic Noteon 05-07-2023 Urology Office/Clinic [...] (N52.9: Male erectile dysfunction, unspecified) Hx of [place] in 2002. Has pacemaker in place. AMANDA [...] Information Josep SANDHU, Mica Johns, URL, [facility] [address], [place] [phone] Additional Instructions: 1 mos w/ PVR Patient Education Erectile Dysfunction Kriss Heredia, personally scribed for Dr. Car on 05/07/2023 15:06:02. . Documentation recorded by the scribe, Kriss Frankel, accurately reflects the services(s) I performed and decisions made by me. Authenticated by Dr. Car on 05/07/2023 16:05:51. Problem List/Past Medical History Ongoing Anticoagulated Arthritis Aspirin marshall (more content not included)... Normal [facility] Comment on above: Result Comment: Elec [...] Weight Tips; Status:Complete - Retrospective Authorization; Done: [id number] Some eating tips that can help you lose weight.; Status:Complete - Retrospective Authorization; Done: [id number] Essential hypertension Renew: Carvedilol 6.25 MG Oral Tablet; Take 1 tablet twice daily Hyperlipidemia Renew: Simvastatin 20 MG Oral Tablet; TAKE 0.5 TABLET Bedtime SocHx: Former smoker Tobacco Use Screening; Status:Complete; Done: [id number] Patient Instructions Please bring all medicines, vitamins, [...] education sheet. Device check as directed per [facility] protocol Chief Complaint LEIGHTON ARCINIEGA is being [...] battery life but I believe it was crook operator error, and not true battery depletion. [...] negative for complaint. Vitals Vital Signs Recorded: [id number] 10: (more content not included)... Normal [facility] Tobacco Screening.on 023 Adult depression screening assessment No [facility] 600 DO Work Phone: Fall risk assessment b) One or more falls in the last year [facility] 600 DO Work Phone: Tobacco use status CPHS b) No [facility] 600 DO Work Phone: CBC AUTO DIFFon 05-28-2022 BASO # 0.0 103/ul Normal 0.0-0.1 [facility] Comment on above: Performed By: #### C BC #### [facility] [address] [place] [address] Dr. Susie Hale Basophils/100 WBC (Bld) 0.5 % Normal 0.2-2.0 [facility] Comment on above: Performed By: #### C BC #### [facility] [address] [place] [address] Dr. Susie Hale EO # 0.1 103/ul Normal 0.0-0.7 [facility] Comment on above: Performed By: #### C BC #### [facility] [address] [place] [address] Dr. Susie Hale Eosinophils/100 WBC (Bld) 1.8 % Normal 0.9-7.0 [facility] Comment on above: Performed By: #### C BC #### [facility] [address] [place] [address] Dr. Susie Hale Erythrocyte distribution width (RBC) [Ratio] 13.0 % Normal 11.0-15.0 [facility] Comment on above: Performed By: #### C BC #### [facility] [address] [place] [address] Dr. Susie Hale Hematocrit (Bld) [Volume fraction] 35.0 % Critically low 42.0-54.0 [facility] Comment on above: Performed By: #### C BC #### [facility] [address] [address] [address] Susie Hale Hemoglobin (Bld) [Mass/Vol] 12.2 g/dL Critically low 14.0-18.0 [facility] Comment on above: Performed By: #### C BC #### [facility] [address] [address] [address] Susie Hale IG # 0.05 10e3/ul Critically high 0.00-0.03 [facility] Comment on above: Performed By: #### C BC #### [facility] [address] [address] [address] Susie Hale IG % 0.8 % Critically high 0.0-0.5 [facility] Comment on above: Performed By: #### C BC #### [facility] [address] [address] [address] Susie Hale LYMPH # 1.9 103/ul Normal 1.2-3.8 [facility] Comment on above: Performed By: #### C BC #### [facility] [address] [address] [address] Susie Hale Lymphocytes/100 WBC (Bld) 28.7 % Normal 20.5-60.0 [facility] Comment on above: Performed By: #### C BC #### [facility] [address] [place] [address] Dr. Susie Hale MANUAL DIFF REQ NO Normal [facility] Comment on above: Performed By: #### C BC #### [facility] [address] [address] [address] Susie Hale MCH (RBC) [Entitic mass] 32.1 pg Normal 25.9-34.0 [facility] Comment on above: Performed By: #### C BC #### [facility] [address] [address] [address] Susie Hale MCHC (RBC) [Mass/Vol] 34.9 g/dL Normal 29.9-35.2 [facility] Comment on above: Performed By: #### C BC #### [facility] [address] [address] [address] Susie Hale MCV (RBC) [Entitic vol] 92.1 fL Normal 80.0-94.0 [facility] Comment on above: Performed By: #### C BC #### [facility] [address] [place] [address] Dr. Susie Hale MONO # 0.7 103/ul Normal 0.3-0.8 [facility] Comment on above: Performed By: #### C BC #### [facility] [address] [place] [address] Dr. Susie Hale Monocytes/100 WBC (Bld) 10.9 % Normal 1.7-12.0 [facility] Comment on above: Performed By: #### C BC #### [facility] [address] [place] [address] Dr. Susie Hale NEUT # 3.7 103/ul Normal 1.4-6.5 [facility] Comment on above: Performed By: #### C BC #### [facility] [address] [place] [address] Dr. Susie Hale Neutrophils/100 WBC (Bld) 57.3 % Normal 43.0-75.0 [facility] Comment on above: Performed By: #### C BC #### [facility] [address] [place] [address] Dr. Susie Hale Platelet mean volume (Bld) [Entitic vol] 8.5 fL Critically low 9.5-13.5 [facility] Comment on above: Performed By: #### C BC #### [facility] [address] [place] [address] Dr. Susie Hale PLT 238 103/ul Normal 150-450 [facility] Comment on above: Performed By: #### C BC #### [facility] [address] [place], [place] [address] Dr. Susie Hale RBC 3.80 106/ul Critically low 4.70-6.10 [facility] Comment on above: Performed By: #### C BC #### [facility] [address] [place], [place] [address] Dr. Susie Hale WBC 6.5 103/ul Normal 4.0-11.0 [facility] Comment on above: Performed By: #### C BC #### [facility] [address] [address] [address] STROKE HEAD WOon [...] Date: 2022-05-28 18:17 Normal [facility] PROF 14(COMP METB)on 023 Albumin [Mass/Vol] 3.5 g/dL Normal 3.4-5.0 [facility] Comment on above: Performed By: #### C MP #### [facility] [address] [place], [place] [address] Dr. Susie Hale Albumin/Globulin [Mass ratio] 1.1 {ratio} Normal [facility] Comment on above: Performed By: #### C MP #### [facility] [address] [place], [place] [address] Dr. Susie Hale ALP [Catalytic activity/Vol] 87 U/L Normal 46-116 [facility] Comment on above: Performed By: #### C MP #### [facility] [address] [address] [address] Susie Hale ALT [Catalytic activity/Vol] 16 U/L Normal 16-63 [facility] Comment on above: Performed By: #### C MP #### [facility] [address] [address] [address] Susie Hale Anion gap [Moles/Vol] 10.0 mmol/L Normal [facility] Comment on above: Performed By: #### C MP #### [facility] [address] [address] [address] Susie Hale AST [Catalytic activity/Vol] 14 U/L Critically low 15-37 [facility] Comment on above: Performed By: #### C MP #### [facility] [address] [place] [address] Dr. Susie Hale Bilirubin [Mass/Vol] 0.2 mg/dL Normal 0.2-1.0 [facility] Comment on above: Performed By: #### C MP #### [facility] [address] [address] [address] Susie Hale Calcium [Mass/Vol] 8.9 mg/dL Normal 8.5-10.1 [facility] Comment on above: Performed By: #### C MP #### [facility] [address] [address] [address] Susie Hale Chloride [Moles/Vol] 105 mmol/L Normal 98-107 [facility] Comment on above: Performed By: #### C MP #### [facility] [address] [address] [address] Susie Hale CO2 [Moles/Vol] 25.7 mmol/L Normal 21.0-32.0 [facility] Comment on above: Performed By: #### C MP #### [facility] [address] [address] [address] Susie Hale Creatinine [Mass/Vol] 1.87 mg/dL Critically high 0.70-1.30 [facility] Comment on above: Performed By: #### C MP #### [facility] [address] [address] [address] Susie Hale EGFR-AF GRENADIAN 43 mL/min/1.73m2 Critically low >=60 [facility] Comment on above: Performed By: #### C MP #### [facility] [address] [address] [address] Susie Hale EGFR-NON AF GRENADIAN 35 mL/min/1.73m2 Critically low >=60 [facility] Comment on above: Performed By: #### C MP #### [facility] [address] [address] [address] Susie Hale Globulin (S) [Mass/Vol] 3.2 g/dL Normal [facility] Comment on above: Performed By: #### C MP #### [facility] [address] [address] [address] Susie Hale Glucose [Mass/Vol] 256 mg/dL Critically high 74-106 [facility] Comment on above: Performed By: #### C MP #### [facility] [address] [address] [address] Susie Hale Potassium [Moles/Vol] 3.7 mmol/L Normal 3.5-5.1 [facility] Comment on above: Performed By: #### C MP #### [facility] [address] [address] [address] Susie Hale Protein [Mass/Vol] 6.7 g/dL Normal 6.4-8.2 [facility] Comment on above: Performed By: #### C MP #### [facility] [address] [address] [address] Susie Hale Sodium [Moles/Vol] 137 mmol/L Normal 136-145 [facility] Comment on above: Performed By: #### C MP #### [facility] [address] [address] [address] Susie Hale Urea nitrogen [Mass/Vol] 22.0 mg/dL Critically high 7.0-18.0 [facility] Comment on above: Performed By: #### C MP #### [facility] [address] [place], [place] [address] Dr. Susie Hale Urea nitrogen/Creatinin e [Mass ratio] 11.8 mg/mg Normal [facility] Comment on above: Performed By: #### C SARA #### [facility] [address] [place], [place] [address] Dr. Susie Hale Office Visit (Cardiology)on 12-16-2021 [...] in adult Healthy Weight Tips; Status:Complete; Done: [id number] Some eating tips that can help you lose weight.; Status:Complete; Done: [id number] Essential hypertension Renew: Carvedilol 6.25 MG Oral Tablet; Take 1 tablet twice daily Hyperlipidemia Renew: Simvastatin 20 MG Oral Tablet; TAKE 0.5 TABLET Bedtime SocHx: Former smoker Tobacco Use Screening; Status:Complete; Done: [id number] Unlinked Stop: Aspirin 325 MG Oral Tablet [...] your visit. Device check as directed per [facility] protocol Follow up in 6-9 months Chief [...] skin r (more content not included)... Normal [facility] Tobacco Screening.on 022 Adult depression screening assessment No [facility] DO Work Phone: Fall risk assessment a) No falls within the last year [facility] 600 DO Work Phone: Tobacco use status [facility] b) [facility] Work Phone: Tobacco Screening.on 021 Fall risk assessment a) No falls within the last year [facility] 250 DO Work Phone: Tobacco use status CPHS b) No [facility] 250 DO Work Phone: Vital Signs Date Time Vital Sign Value Performing Clinician Rody ace 03-01-2024 11:12-0500 Body height 177.8 cm Osvaldo Dickinson MD Work Phone: [facility] 03-01-2024 11:12-0500 Body mass index (BMI) [Ratio] 30.13 kg/m2 Osvaldo Dickinson MD Work Phone: [facility] 03-01-2024 11:12-0500 Body weight 95.25 kg Osvaldo Dickinson MD Work Phone: [facility] 03-01-2024 11:12-0500 Diastolic blood pressure 54 mm[Hg] Osvaldo Dickinson MD Work Phone: [facility] 03-01-2024 11:12-0500 Heart rate 71 /min Osvaldo Dickinson MD Work Phone: [facility] 03-01-2024 11:12-0500 Systolic blood pressure 114 mm[Hg] Osvaldo Dickinson MD Work Phone: [facility] 12-14-2023 13:17-0400 Diastolic blood pressure 70 mm[Hg] Dank Robert DO Work Phone: [facility] 12-14-2023 13:17-0400 Heart rate 68 /min Dank Robert DO Work Phone: [facility] 12-14-2023 13:17-0400 SaO2% (BldA) [Mass fraction] 97 % Dank Robert DO Work Phone: [facility] 12-14-2023 13:17-0400 Systolic blood pressure 152 mm[Hg] Dank Robert DO Work Phone: [facility] 08-25-2023 12:12-0400 Body height 177.8 cm Varghese Caal MD Work Phone: [facility] 08-25-2023 12:12-0400 Body mass index (BMI) [Ratio] 33.43 kg/m2 Varghese Caal MD Work Phone: [facility] 08-25-2023 12:12-0400 Body weight 105.69 kg Varghese Caal MD Work Phone: [facility] 08-25-2023 12:12-0400 Diastolic blood pressure 54 mm[Hg] Varghese Caal MD Work Phone: [facility] 08-25-2023 12:12-0400 Heart rate 60 /min Varghese Caal MD Work Phone: [facility] 08-25-2023 12:12-0400 Systolic blood pressure 126 mm[Hg] Varghese Caal MD Work Phone: [facility] 02-10-2023 11:37-0500 Body height 177.8 cm Varghese Caal MD Work Phone: [facility] 02-10-2023 11:37-0500 Body mass index (BMI) [Ratio] 32.28 kg/m2 Varghese Caal MD Work Phone: [facility] 02-10-2023 11:37-0500 Body weight 102.06 kg Varghese Caal MD Work Phone: [facility] 02-10-2023 11:37-0500 Diastolic blood pressure 58 mm[Hg] Varghese Caal MD Work Phone: [facility] 02-10-2023 11:37-0500 Heart rate 63 /min Varghese Caal MD Work Phone: [facility] 02-10-2023 11:37-0500 Systolic blood pressure 120 mm[Hg] Varghese Caal MD Work Phone: [facility] 07-01-2022 10:54-0400 Body height 177.8 cm Andrea Espinoza [facility] DO Work Phone: 07-01-2022 10:54-0400 Body mass index (BMI) [Ratio] 32.71 kg/m2 Andrea Espinoza Work [facility] DO Work Phone: 07-01-2022 10:54-0400 Body surface area Derived from formula 2.21 m2 Andrea Espinoza Work Phone: [facility] 600 DO Work Phone: 07-01-2022 10:54-0400 Body weight 103.42 kg Andrea Espinoza Work Phone: [facility] 600 DO Work Phone: 07-01-2022 10:54-0400 Diastolic blood pressure 64 mm[Hg] Andrea Vasquezroh Work Phone: [facility] 600 DO Work Phone: 07-01-2022 10:54-0400 Heart rate 72 /min Andrea Vasquezroh Work Phone: [facility] 600 DO Work Phone: 07-01-2022 10:54-0400 Systolic blood pressure 118 mm[Hg] [facility]roh [facility] DO Work Phone: 12-16-2021 11:08-0400 Body height 177.8 cm Andrea Houstonh Work Phone: [facility] 600 DO Work Phone: 12-16-2021 11:08-0400 Body mass index (BMI) [Ratio] 33.86 kg/m2 Andrea Vasquezroh Work Phone: [facility] DO Work Phone: 12-16-2021 11:08-0400 Body surface area Derived from formula 2.24 m2 Andrea Vasquezroh Work Phone: [facility] 600 DO Work Phone: 12-16-2021 11:08-0400 Body weight 107.05 kg Andrea Vasquezroh Work Phone: [facility] 600 DO Work Phone: 12-16-2021 11:08-0400 Diastolic blood pressure 64 mm[Hg] Andrea Espinoza Work Phone: [facility] 600 DO Work Phone: 12-16-2021 11:08-0400 Heart rate 72 /min Andrea Espinoza Work Phone: [facility] 600 DO Work Phone: 12-16-2021 11:08-0400 Systolic blood pressure 132 mm[Hg] Andrea Espinoza Work Phone: [facility] 600 DO Work Phone: 01-22-2021 14:36-0400 Body height 177.8 cm Andrea Espinoza Work Phone: [facility] 250 DO Work Phone: 01-22-2021 14:36-0400 Body mass index (BMI) [Ratio] 34.01 kg/m2 Andrea Espinoza Work Phone: [facility] 250 DO Work Phone: 01-22-2021 14:36-0400 Body surface area Derived from formula 2.24 m2 Andrea Espinoza Work Phone: [facility] 250 DO Work Phone: 01-22-2021 14:36-0400 Body weight 107.5 kg Andrea Espinoza Work Phone: [facility] 250 DO Work Phone: 01-22-2021 14:36-0400 Diastolic blood pressure 54 mm[Hg] Andrae Espinoza Work Phone: [facility] 250 DO Work Phone: 01-22-2021 14:36-0400 Heart rate 76 /min Andrea Espinoza Work Phone: [facility] 250 DO Work Phone: 01-22-2021 14:36-0400 Systolic blood pressure 104 mm[Hg] Andrea Houstonzulay Work Phone: [facility] 250 DO Work Phone: Encounters Encounter Date Encounter Type Care Provider Facility Start: 05-18-2024 ambulatory Mica M. Lue [facility] Start: 05-12-2024 ambulatory Mica M. Lue Facility:[facility] [place] Start: 04-26-2024 End: 04-26-2024 ambulatory Mica M. Lue Facility:[facility] Start: 04-25-2024 End: 04-25-2024 ambulatory Deepti Sernaa Facility:[facility] Start: 04-25-2024 End: 04-25-2024 ambulatory Mica M. Lue Facility:[facility] Start: 04-12-2024 End: 04-12-2024 ambulatory Mica M. Lue Facility:[facility] Start: 04-06-2024 End: 04-06-2024 ambulatory Mica M. Lue [facility] Start: 03-28-2024 End: 03-28-2024 ambulatory Benton Vasquez [facility] Work Phone: Start: 03-28-2024 End: 03-28-2024 Departed Referred Benton Vasquez DO [facility] Start: 03-24-2024 End: 03-24-2024 ambulatory Mica M. Lue Facility:[facility] Start: 03-11-2024 End: 03-11-2024 ambulatory Benton Vasquez Facility:[facility] Start: 03-11-2024 End: 03-11-2024 Departed Referred Benton Vasquez DO [facility] Start: 03-02-2024 End: 03-02-2024 ambulatory NATA AT Facility:[facility] Start: 03-01-2024 End: 03-01-2024 Office outpatient visit 25 minutes Osvaldo Dickinson MD Work Phone: [facility] Comment on above: Paroxysmal atrial fi brillation (Multi) (Primary Dx); Sick sinus syndrome (Multi); Pacemaker; Essential hypertension; Cardiomyopathy, unspecified type (Multi); Mixed hyperlipidemia; Stage 4 chronic kidney disease (Multi); Non-smoker; BMI 30.0-30.9,adult Start: 03-01-2024 End: 03-01-2024 ambulatory [facility] Start: 02-19-2024 End: 02-19-2024 Emergency department patient visit LORI Vallejo Fan [facility] Start: 02-18-2024 End: 02-18-2024 ambulatory Mica Car Facility:[facility] Start: 02-14-2024 End: 02-14-2024 ambulatory Mica Car Facility:[facility] Start: 01-31-2024 End: 01-31-2024 ambulatory Anna Milespatriciavalery Facility:[facility] Start: 01-24-2024 End: 01-24-2024 Emergency department patient visit BOBO Theodora BRENNER [facility] Start: 01-17-2024 End: 01-17-2024 Office outpatient visit 25 minutes Blanca Alonso MD Work Phone: [facility] Comment on above: Other atopic dermati tis (Primary Dx); Seborrheic keratosis; Lentigines; History of SCC (squamous cell carcinoma) of skin Start: 01-17-2024 End: 01-17-2024 ambulatory BLANCA ALONSO Not Available Start: 12-27-2023 End: 12-27-2023 ambulatory Mica Car Facility:[facility] Start: 12-14-2023 End: 12-14-2023 Bamboo flowsheet Dank Robert DO Work Phone: [facility] [address] [facility] Start: 12-14-2023 End: 12-14-2023 Bamboo [...] Start: 12-09-2023 End: 12-09-2023 ambulatory Varghese Caal Facility:[facility] Start: 11-12-2023 End: 11-12-2023 ambulatory Mica Car Facility:[facility] Start: 10-14-2023 End: 10-14-2023 Emergency department patient visit Vinipete Quinteros Facility:[facility] Start: 10-14-2023 ambulatory Barb Elkins cility:[facility] Start: 08-31-2023 End: 08-31-2023 ambulatory BLANCA A PETITTI Not Available Start: 08-25-2023 End: 08-25-2023 Office outpatient visit 25 minutes Varghese Caal MD Work Phone: [facility] Comment on above: Essential hypertensi on (Primary Dx); Sick sinus syndrome (Multi); Mixed hyperlipidemia; Paroxysmal atrial fibrillation (Multi); Dilated cardiomyopathy (Multi); Pacemaker; BMI 33.0-33.9,adult Start: 08-25-2023 End: 08-25-2023 ambulatory [facility] Start: 08-10-2023 End: 08-10-2023 ambulatory BLANCA A PETITTI Not Available Start: 06-16-2023 End: 06-16-2023 ambulatory NAPOLEON TA Facility:[facility] Start: 05-07-2023 End: 05-07-2023 ambulatory Mica Car Facility:[facility] Start: 03-19-2023 End: 03-19-2023 ambulatory BLANCA PETITTI [...] sit 25 minutes Andrea Espinoza Work Phone: [facility] 600 DO Work Phone: Start: 07-01-[address] Varghese Caal II Facility: Start: 05-28-2022 End: 05-28-[address] TRINO Lange Facility:[facility] Start: 05-14-2022 End: 05-15-2022 ambulatory MARIXA ROY Facility:[facility] Start: 04-23-[address] Andrea Espinoza Facility: Start: 12-31-2021 Rx Renewal Andrea Espinoza Work Phone: [facility] 250 DO Work Phone: Start: 12-16-2021 Office outpatient vi sit 25 minutes Andrea Espinoza Work Phone: [facility] 600 DO Work Phone: Start: 12-16-[address] Varghese Caal II Facility: Start: 01-22-2021 Office outpatient vi sit 25 minutes Andrea Espinoza Work Phone: [facility] 250 DO Work Phone: Procedures Date Procedure Procedure Detail Performing Clinician Start: 03-11-2024 Urine culture Benotn prajapati DO Start: 03-01-2024 Ecg routine ecg [...] DTaP/Tdap/Td Vaccines (2 - Td or Tdap) [facility] Start: 01-25-2025 End: 01-25-2025 Patient encounter procedure 01/25/2025 1:05 PM EST Office Visit [facility] [address] [place] [address] Blanca Alonso MD [address] [place] [address] [facility] Start: 12-12-2024 End: 12-12-2024 Patient encounter procedure 12/12/2024 1:00 PM EDT Office Visit [facility] [address] [place] [address] Rox Cervantes, PAVING [employer] [address] [place], [place] [facility] Start: 11-28-2024 Glaucoma screening Diabetes: R etinopathy Screening [facility] Start: 11-07-2024 End: 11-07-2024 Patient encounter procedure 11/07/2024 10:30 AM EDT Office Visit [place] [address] [place] [id number] Osvaldo Dickinson MD [address] [facility] [address] [place] [address] [facility] Start: 03-28-[address] [facility] Start: 03-28-2024 Bacteria identified in Urine by Culture Urine Culture [facility] Start: 03-01-2024 End: 03-01-2024 Patient encounter procedure 03/01/2024 11:00 AM EST Office Visit [address] [place] [address] Osvaldo Dickinson MD [address] [facility] [address] [place] [address] [facility] Start: 01-17-2024 End: 01-17-2024 Patient encounter procedure 01/17/2024 3:15 PM EDT Office Visit [facility] [address] [place] [address] Blanca Alonso MD [address] [place] [address] [facility] Start: 12-14-2023 End: 12-14-2023 Patient encounter procedure 12/14/2023 1:30 PM EDT Office Visit [facility] [address] [place] [address] Dank Jones DO [address] [place] [address] Arrived [facility] Comment on above: Arrived Start: 12-01-2023 Glaucoma screening Diabetes: R etinopathy Screening [facility] Start: 08-25-2023 End: 08-25-2023 Patient encounter procedure 08/25/2023 11:40 AM EDT Office Visit [address] [place] [address] Varghese Caal MD [address] [facility] [address] [place] [address] [facility] Start: 06-05-2023 COVID-19 Vaccine ( season) COVID-19 Vaccine () [facility] Start: 04-01-2023 COVID-19 Vaccine (6 - Moderna series) COVID-19 Vaccine (6 - Moderna series) [facility] Start: 02-10-2023 FUV, Provider: Varghese Caal, Status: Pen, Time: 11:30 AM FUV, Provider: Varghese Caal, Status: Pen, Time: 11:30 AM -[facility] 600 DO Work Phone: Start: 07-01-2022 FUV, Provider: Varghese Caal, Status: Pen, Time: 10:40 AM FUV, Provider: Varghese Caal, Status: Pen, Time: 10:40 AM -[facility] 600 DO Work Phone: Start: 09-10-2021 FUV, Provider: Varghese Caal, Status: Pen, Time: 2:30 PM FUV, Provider: Varghese Caal, Status: Pen, Time: 2:30 PM -[facility] 250 DO Work Phone: Start: 2020 RSV High Risk: (Elde rly (60+) or Population) (1 - 1-dose 75+ series) RSV High Risk: (Elderly (60+) or Population) (1 - 1-dose 75+ series) [facility] Start: 05-09-[address] [facility] Start: 2005 RSV patient s and/or patients aged 60+ years (1 - 1-dose 60+ series) RSV patients and/or patients aged 60+ years (1 - 1-dose 60+ series) [facility] Start: 11-26-1995 Zoster Vaccines (1 of 2) Zoste r Vaccines (1 of 2) [facility] Start: 1964 Urine screening for protein Diabetes: Urine Protein Screening [facility] Start: 11-26-1963 [facility] Start: 11-26-1955 Diabetic foot examination Diabetes: Foot Exam [facility] Start: 11-26-1955 Glaucoma screening Diabetes: R etinopathy Screening [facility] Start: 1945 Creatinine measurement Creatinine Le sarah [facility] Start: 1945 Hemoglobin A1c measurement Jennifer nicolasa: Hemoglobin A1C [facility] Start: 1945 Lipid panel Lipid Panel [facility] Start: 1945 Medicare Annual Well ness Visit Medicare Annual Wellness Visit (AWV) [facility] Start: 1945 Potassium measurement Potassium Cb l [facility] Immunizations Immunization Date Immunization Notes Care Provider Fa naren 01-14-2022 Fluad Quadrivalent 0 .5 ML Intramuscular Prefilled Syringe Andrea Patel Pedroemma [facility] 600 [facility] Work Phone: 01-14-2022 Pfizer COVID-19 Vac Bivalent 30 MCG/0.3ML Intramuscular Suspension Andrea Patel Pedroemma Work Phone: [facility] 600 DO Work Phone: 09-03-2021 pneumococcal conjuga te vaccine, 13 valent Dank Robert DO Work Phone: [facility] 02-15-2021 Moderna COVID-19 Vac cine 100 MCG/0.5ML Intramuscular Suspension Andrea Amanda Vasquezemma Work Phone: [facility] 600 DO Work Phone: 01-30-2021 influenza virus vacc ine, unspecified formulation Andrea Patel Pedroemma Work Phone: [facility] 600 DO Work Phone: 11-28-2020 influenza, high dose seasonal, preservative-free Andrea Patel Pedroemma Work Phone: [facility] 250 DO Work Phone: Comment on above: Series: 06-20-2020 Moderna COVID-19 Vac cine 100 MCG/0.5ML Intramuscular Suspension Andrea Patel Pedroyann Work Phone: [facility] 600 DO Work Phone: 05-20-2020 Moderna COVID-19 Vac cine 100 MCG/0.5ML Intramuscular Suspension [facility] Work Phone: Comment on above: Series: 04-25-2020 Moderna COVID-19 Vac cine 100 MCG/0.5ML Intramuscular Suspension Andrea Espinoza Work Phone: [facility] 250 DO Work Phone: Comment on above: Series: 12-21-2019 influenza virus vacc ine, unspecified formulation Andrea Espinoza Work Phone: [facility] DO Work Phone: 12-20-2018 influenza, high dose seasonal, preservative-free Andrea Espinoza Work Phone: [facility] 02-19-2018 influenza virus vacc ine, unspecified formulation Andrea Houston Work Phone: [facility] 600 DO Work Phone: 02-19-2018 pneumococcal polysaccharide vaccine, 23 valent Andrea Houston Work Phone: [facility] 250 DO Work Phone: Comment on above: Series: 02-19-2018 pneumococcal vaccine , unspecified formulation Andrea Espinoza Work Phone: [facility] 02-18-2017 Influenza, injectabl e, Madin Echo Canine Kidney, preservative free, quadrivalent Andrea Houston Work Phone: [facility] 600 DO Work Phone: 11-24-2016 influenza, high dose seasonal, preservative-free Andrea Vasquezro Work Phone: [facility] DO Work Phone: 12-21-2015 pneumococcal conjuga te vaccine, 13 valent Andrea Houston Work Phone: [facility] 250 DO Work Phone: Comment on above: Series: Payers Date Payer Category Payer Self-pay 2022 Medicare [id number] 2022 [employer] ( and others) [id number] 2022 () [id number]. [id number] 2022 For Life (TFL) F OR LIFE [id number]. [id number] 2022 [employer] ( and others) [id number] 2010 Medicare [id number] 1.13.647. [id number] 1959 [employer] ( and others) [id number] 1959 Medicare [id number] 1945 Unknown [id number] 2.16.840.1.297211.3.579. 2.593 1945 Unknown [id number] 2.16.840.1.889256.3.579. 2.593 1945 Unknown [id number] 2.16.840.1.456897.3.579. 2.356 1945 Unknown [id number] 2.16840.1.583573.3.579. 2.356 1945 Unknown [id number] 2.840.1.360228.3.579. 2.356 1945 Unknown [id number] 2.840.1.097600.3.579. 2.356 1945 Unknown [id number] 2.840.1.149490.3.579. 2.1259 1945 Unknown [id number] 2.840.1.985701.3.579. 2.1259 1945 Unknown [id number] 2.840.1.810276.3.579. 2.1259 1945 Unknown [id number] 2.840.1.950437.3.579. 2.1259 1945 Unknown [id number] 2.840.1.589196.3.579. 2.1259 1945 Unknown [id number] 2.840.1.508685.3.579. 2.1259 1945 Unknown [id number] 2.840.1.185313.3.579. 2.1286 1945 Unknown [id number] 2.840.1.853296.3.579. 2.1286 1945 Unknown [id number] 2.840.1.865410.3.579. 2.1244 1945 Unknown [id number] 2.840.1.571191.3.579. 2.1244 1945 Unknown [id number] 2.16.840.1.717089.3.579. 2.72 1945 Unknown [id number] 2.16.840.1.197472.3.579. 2. 1945 Unknown [id number] 2.16.840.1.931590.3.579. 2. 1945 Unknown [id number] 2.16.840.1.674133.3.579. 2. 1945 Unknown [id number] 2.16.840.1.807709.3.579. 2. 1945 Unknown [id number] 2.16.840.1.837104.3.579. 2 1945 Unknown [id number] 2.16.840.1.987029.3.579. 2 1945 Unknown [id number] 2.16.840.1.348417.3.579. 2 1945 Unknown [id number] 2.16.840.1.775864.3.579. 2 1945 Unknown [id number] 2.16.840.1.961641.3.579. 2 1945 Unknown [id number] 2.16.840.1.086553.3.579. 2. 1945 Unknown [id number] 2.16.840.1.742859.3.579. 2 1945 Unknown [id number] 2.16.840.1.947837.3.579. 2. 1945 Unknown [id number] 2.16.840.1.535587.3.579. 2 1945 Unknown [id number] 2.16.840.1.121599.3.579. 2. 1945 Unknown [id number] 2.16.840.1.673633.3.579. 2.727 1945 Unknown [id number] 2.16.840.1.472456.3.579. 2.727 1945 Unknown [id number] 2.16.840.1.728267.3.579. 2.727 1945 Unknown [id number] 2.16.840.1.633374.3.579. 2.727 1945 Unknown [id number] 2.16.840.1.324043.3.579. 2.727 Unknown Unknown [id number] 2.16.840.1.151246.3.579. 2.531 Unknown [id number] 2.16.840.1.327113.3.579. 2.531 Social History Date Type Detail Facility Start: 02-10-2023 End: 12-14-2023 No illicit drug use No illicit drug use [facility] 250 DO Work Phone: Comment on above: quit , 1 PPD; Start: 02-10-2023 End: 08-25-2023 Tobacco smoking status NHIS Ex-smoker [facility] Work Phone: End: 03-22-1992 History of tobacco use Current smoker [facility] Work Phone: End: 03-22-1992 History of tobacco use Cigarette Smoker [facility] Work Phone: Start: 10-11-2022 End: 02-10-2023 Tobacco use and exposure Smokeless tobacco non-user [facility] Work Phone: Start: 02-10-2023 End: 12-14-2023 Alcohol intake Lifetime non-drinker (finding) [facility] Work Phone: Start: 02-10-2023 End: 12-14-2023 Tobacco use panel [facility] Work Phone: Start: 1945 Sex Assigned At Not on file [facility] Work Phone: Start: 01-31-2023 End: 03-01-2024 Exposure to SARS-CoV-2 (event) Not sure [facility] Start: 10-11-2022 Tobacco smoking stat NHIS Never smoked tobacco [facility] Tobacco smoking stat us NHIS Unknown if ever smoked [facility] Work Phone: Start: 03-30-2024 Sex Patient sex un known (finding) [facility] Start: 1945 Sex Assigned At Male F [facility] Clinical Notes 05-14-2022 to 04-26-2024 Osvaldo Dickinson [...] provider. Document Revised: 11/05/2021 Document Reviewed: 11/05/2021 [employer] Patient Education ? 2023 [employer] [facility] 04-12-2024 Note Patient Education Urology Benign [...] Follow these instructions at home: ??? Take cemb-uhp-cllhwmi and prescription medicines only as told by [...] do not get (more content not included)... [facility] 03-02-2024 Note Patient Education Urology Acute [...] these instructions at home: Medicines ??? Take fahg-xya-uzkzzqz and prescription medicines only as told by [...] provider. Document Revised: 11/27/2020 Document Reviewed: 11/27/2020 [employer] Patient Education ? 2023 [employer] [facility] 03-01-2024 History of Present illness Narrative [...] his recent lab work from [facility] 5. I will see him back [...] discussion and plan. documented in this encounter [facility] Work Phone: 03-01-2024 Instructions Betzaida Denney [...] instructions on exercise. documented in this encounter [facility] Work Phone: 02-14-2024 Note Patient Education [...] to the c (more content not included)... [facility] 01-31-2024 Note Patient Education Urology Acute [...] these instructions at home: Medicines ??? Take nisp-eqk-lahelqs and prescription medicines only as told by [...] provider. Document Revised: 11/27/2020 Document Reviewed: 11/27/2020 [employer] Patient Education ? 2023 [employer] Benign Prostatic Hyperplasia Benign prostatic hyperplasia (BPH) is an enlarged prostate gland that is caused by the normal aging proc (more content not included)... 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 and he has [...] Visit: 1 year documented in this encounter [facility] 12-27-2023 Note Progress Note-Asaf tapia Patient: [...] day(s), # 6 tab(s), Refills(s) 0, Pharmacy: [facility] #[id number], 177, cm, 12/27/23 11:02:00 EDT, Height/Length Dosing, 104, kg, 12/27/23 11:02:00 EDT, Weight Dosing [place] 325 mg-5 mg oral tablet: 1 tab(s), Oral, q6hr for pain, 4 tab(s), Refill(s) 0, Take 1 tablet an hour before procedure, post procedure prn, [facility] #[id number], 177, cm, 12/27/23 11:02:00 EDT, Height/Length Dosing, 104, kg, 12/27/23 11:02:00 EDT, Weight Dosing sildenafil 100 mg Tab: 100 mg = 1 tab(s), Oral, As Directed, PRN for erectile dysfunction, Take one tab 1 hour prior to sexual activity., # 30 tab(s), Refills(s) 3, Pharmacy: [facility] #[id number], 177.8, cm, 06/16/23 10:18:00 EDT, Height/Length Dosing, 104.8, kg, 06/16/23 10:18:... terazosin 10 mg Cap: 10 mg = 1 cap(s), Oral, Once a day (at bedtime), # 90 cap(s), Refills(s) 3, Pharmacy: [facility], 177, cm, 12/27/23 11:02:00 EDT, Height/Length Dosing, 104, kg, 12/27/23 11:02:00 EDT, Weight Dosing traMADOL 50 mg Tab: 50 mg = 1 tab(s), Oral, q6hr, Take as needed for pain., # 6 tab(s), Refills(s) 0, Pharmacy: [facility] #[id number], 177.8, cm, 11/12/23 15:35:00 EDT, Height/Length Dosing, [...] Plan: Diagnosis: Prostate hyperplasia with urinary obstruction (XBH20-WD N40.1, Discharge, Medical), Feeling of incomplete bladder emptying (XRP19-PK R39.14, Working, Medical), Anticoagulated (CDJ67-DJ Z79.01, Discharge, Medical). 78 yo male here [...] and Valium prior to procedure. 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 The procedural risks, benefits, details, and treatment alternatives have been discussed with the patient. These include bleeding, infection, continued problems urinating, increased frequency with urgency during the healing process, painful urination, need for indwelling cathete (more content not included)... [facility] Comment on above: Result Comment: Elec [...] you have a fever over 100 degrees. [facility] 12-14-2023 History of Present illness Narrative [...] Actinic keratosis COPD (chronic obstructive pulmonary disease) ([facility]/HCC) Coronary heart disease (CMS/HCC) Diabetes mellitus, type 2 (CMS/HCC) HTN (hypertension) ([facility]/HCC) Hx of psoriasis Kidney disease LA (myocardial infarction) ([facility]/HCC) VIRGILIO (obstructive sleep apnea) Pacemaker Squamous [...] was counselled on the risk of stroke, LA, and sudden with VIRGILIO, along with the [...] Return to clinic: documented in this encounter [facility] 11-12-2023 Note Patient Education Urology Benign [...] Follow these instructions at home: ? Take hgtk-ujj-lqjcskb and prescription medicines only as told by [...] develop side effec (more content not included)... [facility] 10-14-2023 Note ED Patient Education Note [...] under your knee. General instructions ? Take zffq-dip-qzejegh and prescription medicines only as told by [...] provider. Document Revised: 08/21/2020 Document Reviewed: 08/21/2020 [employer] Patient Education ? 2022 [employer] [facility] 08-25-2023 History of Present illness Narrative [...] Scribe Attestation By signing my name below, IAlberat LPN, Scribe attest that this documentation has [...] discussion and plan. documented in this encounter [facility] Work Phone: 08-25-2023 Instructions Jo Ann [...] of your visit. documented in this encounter [facility] Work Phone: 02-10-2023 History of Present [...] recent pacemaker checks. documented in this encounter [facility] Work Phone: 02-10-2023 Instructions Alize James [...] up per routine documented in this encounter [facility] Work Phone: 05-14-2022 Note PROCEDURE: XR [...] DU Date: 2022-05-14 18:40 [facility] Evaluation note Diagnosis Sick sinus syndrome (CMS/HCC)- Primary Sinoatrial node dysfunction Mobitz type II atrioventricular block Mobitz (type) II atrioventricular block Pacemaker Cardiac pacemaker in situ Essential hypertension Unspecified essential hypertension Dilated cardiomyopathy (CMS/HCC) Other primary cardiomyopathies Paroxysmal atrial fibrillation (CMS/HCC) Atrial fibrillation documented in this encounter [facility] Work Phone: Evaluation note* Diagnosis Essential hypertension- Primary Unspecified essential hypertension Sick sinus syndrome (Multi) Sinoatrial node dysfunction Mixed hyperlipidemia Paroxysmal atrial fibrillation (Multi) Atrial fibrillation Dilated cardiomyopathy (Multi) Other primary cardiomyopathies Pacemaker Cardiac pacemaker in situ BMI 33.0-33.9,adult documented in this encounter [facility] Work Phone: Evaluation note* Diagnosis Other atopic dermatitis- Primary Seborrheic keratosis Lentigines History of SCC (squamous cell carcinoma) of skin Personal history of other malignant neoplasm of skin documented in this encounter [facility] HealthcareEvaluation note* Diagnosis Paroxysmal atrial fibrillation (Multi)- Primary Atrial fibrillation Sick sinus syndrome (Multi) Sinoatrial node dysfunction Pacemaker Cardiac pacemaker in situ Essential hypertension Unspecified essential hypertension Cardiomyopathy, unspecified type (Multi) Mixed hyperlipidemia Stage 4 chronic kidney disease (Multi) Non-smoker BMI 30.0-30.9,adult documented in this encounter [facility] Work Phone: Evaluation note* Diagnosis VIRGILIO (obstructive sleep apnea)- Primary Obstructive sleep apnea (adult) (pediatric) Hypersomnia Hypersomnia, unspecified PLMD (periodic limb movement disorder) Periodic limb movement disorder Obesity due to excess calories, unspecified classification, unspecified whether serious comorbidity present Snoring Other dyspnea and respiratory abnormality documented in this encounter [facility] HealthcareEvaluation noteNo assessment information [facility] Work Phone: History of Present illness [...] on the basis of his improve lifestyle modification.-[facility] 250 DO Work Phone: History of Present [...] the merits of diet and weight loss. 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 [facility] [facility] Work Phone: Reason for referral (narrative)* Consultation (Routine) - Authorized Specialty Diagnoses / Procedures Referred By Elida gifford Referred To Contact Cardiology Diagnoses Sick sinus syndrome (CMS/HCC) Procedures Follow Up In Cardiology Varghese Caal MD [address] [place] [address], [address] [address] Varghese Caal MD [address] [place] [address], [address] [address] Referral ID Status Reason Start Date Expiration Date V isits Requested Visits Authorized [id number] Authorized 02/10/2023 02/10/2024 1 1 [facility] Work Phone: Reason for referral (narrative)* Consultation (Routine) - Authorized Specialty Diagnoses / Procedures Referred By Elida gifford Referred To Contact Cardiology Diagnoses Sick sinus syndrome (Multi) Procedures Follow Up In Cardiology Varghese Caal MD [address] [facility] 2, [address] [address] Osvaldo Dickinson MD [address] [facility] 2, [facility] [address] [place] [address] Referral ID Status Reason Start Date Expiration Date V isits Requested Visits Authorized [id number] Authorized 08/25/2023 08/24/2024 1 1 [facility] Work Phone: Chief Complaint LEIGHTON ARCINIEGA [...] DATE CREATED AUTHOR AUTHOR'S ORGANIZ ATION 01/18/2024 [facility] EPIC DATE CREATED AUTHOR AUTHOR'S ORGANIZ ATION 02/21/2024 [facility] DATE CREATED AUTHOR AUTHOR'S ORGANIZ ATION 03/04/2024 [facility] DATE CREATED AUTHOR AUTHOR'S ORGANIZ ATION 04/02/2024 [facility] DATE CREATED AUTHOR AUTHOR'S ORGANIZ ATION 04/07/2024 [facility] DATE CREATED AUTHOR AUTHOR'S ORGANIZ ATION 04/13/2024 [facility] DATE CREATED AUTHOR AUTHOR'S ORGANIZ ATION 04/27/2024 [facility] DATE CREATED AUTHOR AUTHOR'S ORGANIZ ATION 04/28/2024 [facility] Reason for Visit (unrecogniz ed section and content) Reason Comments Follow-up 6-9mo Reason Comments Follow-up 6-9 months Specialty Diagnoses / Procedures Referred By Contac t Referred To Contact Cardiology Diagnoses Sick sinus syndrome (Multi) Procedures Follow Up In Cardiology Varghese Caal MD [address] [place] [id number] Varghese Caal MD [address] [place] [address], [address] [address] Referral ID Status Reason Start Date Expiration Date V isits Requested Visits Authorized [id number] Authorized 02/10/2023 02/10/2024 1 1 Reason Comments Skin Check Follow-up Reason Comments Follow-up 6-9 months Specialty Diagnoses / Procedures Referred By Contac t Referred To Contact Cardiology Diagnoses Sick sinus syndrome (Multi) Procedures Follow Up In Cardiology Varghese Caal MD Traboulssi, Mourhaf, MD [address] [place] [address] Phone: tel: fax: Referral ID Status Reason Start Date Expiration Date V isits Requested Visits Authorized [id number] Authorized 08/25/2023 08/24/2024 1 1 Reason Comments Sleep Apnea Care Teams (unrecognized sec tion and content) Press Writer Relationship Specialty Start Date End Date Andrea Espinoza DO [address] [place] [id number] PCP - General 03/22/99 Press Writer Relationship Specialty Start Date End Date Andrea Espinoza DO [address] [place] [id number] PCP - General 03/22/99 Press Writer Relationship Specialty Start Date End Date Lori Medina MD [address] [place] [address] PCP - General Family Medicine 10/09/22 Press Writer Relationship Specialty Start Date End Date Andrea Espinoza DO [address] [place] [id number] PCP - General 03/22/99 Press Writer Relationship Specialty Start Date End Date Lori Medina MD [address] [place] [address] PCP - General Family Medicine 10/09/22 Press Writer Relationship Specialty Start Date End Date Lori Medina MD [address] [place] [address] PCP - General Family Medicine 10/09/22 Team [...] BE BASED ON THE PRIMARY CLINICAL RECORDS. [facility]. provides no warranty or guarantee of the accuracy or completeness of information in this document.
[2024-05-03] MEDS: IPRATROPIUM/ALBUTEROL SULFATE 3 ML AMPUL.NEB IH ×4 (04:10→20:16)
[2024-05-03] MEDS: HYDRALAZINE HCL 50 MG TABLET 100 MG PO ×3 (05:46→22:12)
--- NOTE | 2024-05-03 06:24 | P.HP_ITS ---
HPI H&P: HPI History of Present Illness Chief complaint: Shortness of Breath Narrative: Patient presented to the emergency room with increasing cough and shortness of breath, he had recent hospitalization, in the emergency room found to have multifocal pneumonia, this could be healthcare acquired pneumonia secondary to the recent discharge.- When I saw patient up on the medical surgical floor, he was resting fairly comfortably in the bed maybe some mild conversational dyspnea but did have cough throughout the evaluation Opioid HPI Opioid Management Most Recent Pain and Opioid Data: Last Pain Scale 2 04/22/24 10:56 04/22/24 Last Pain Intensity 4 04/22/24 10:56 04/22/24 Last Pain Assessment 05/03/24 18:52 Last ORT Total Score 0 05/03/24 01:57 05/03/24 Last ORT Risk Category Low Risk 05/03/24 01:57 05/03/24 Review of Systems ROS Status of ROS 10 or more systems reviewed and unremark able except as noted in history and below [facility] Medical History (Updated 05/03/24 @ 00:54 by Hector Vasquez MD) Hospital acquired PNA ?J18.9 - Pneumonia, unspecified organism (ICD-10) ?Y95 - Nosocomial condition (ICD-10) Acute on chronic diastolic (congestive) heart failure ?I50.33 - Acute on chronic diastolic (congestive) heart failure (ICD-10) Shortness of breath ?R06.02 - Shortness of breath (ICD-10) Congestive heart failure ?I50.9 - Heart failure, unspecified (ICD-10) Pneumonia ?J18.9 - Pneumonia, unspecified organism (ICD-10) Severe sepsis ?A41.9 - Sepsis, unspecified organism (ICD-10) ?R65.20 - Severe sepsis without septic shock (ICD-10) COPD exacerbation ?J44.1 - Chronic obstructive pulmonary disease with (acute) exacerbation (ICD-10) Acute exacerbation of chronic heart failure ?I50.9 - Heart failure, unspecified (ICD-10) Acute hypoxemic respiratory failure ?J96.01 - Acute respiratory failure with hypoxia (ICD-10) Acute kidney injury ?N17.9 - Acute kidney failure, unspecified (ICD-10) Bladder spasm ?N32.89 - Other specified disorders of bladder (ICD-10) Urinary tract infection ?N39.0 - Urinary tract infection, site not specified (ICD-10) Urinary tract infection ?N39.0 - Urinary tract infection, site not specified (ICD-10) Failure of outpatient treatment ?Z78.9 - Other specified health status (ICD-10) Urinary tract infection ?N39.0 - Urinary tract infection, site not specified (ICD-10) Skin cancer ?C44.90 - Unspecified malignant neoplasm of skin, unspecified (ICD-10) Myocardial infarction ?I21.9 - Acute myocardial infarction, unspecified (ICD-10) Pacemaker ?Z95.0 - Presence of cardiac pacemaker (ICD-10) CKD (chronic kidney disease) ?N18.9 - Chronic kidney disease, unspecified (ICD-10) CAD (coronary artery disease) ?I25.10 - Atherosclerotic heart disease of [place] coronary artery without angina pectoris (ICD-10) A-fib ?I48.91 - Unspecified atrial fibrillation (ICD-10) Erectile dysfunction ?N52.9 - Male erectile dysfunction, unspecified (ICD-10) UTI (urinary tract infection) ?N39.0 - Urinary tract infection, site not specified (ICD-10) GERD (gastroesophageal reflux disease) ?K21.9 - Gastro-esophageal reflux disease without esophagitis (ICD-10) Hypertension ?I10 - Essential (primary) hypertension (ICD-10) Diabetes ?E11.9 - Type 2 diabetes mellitus without complications (ICD-10) Surgical History History of arthroscopic knee surgery ?Z98.890 - Other specified postprocedural states (ICD-10) Hx of tonsillectomy ?Z90.89 - Acquired absence of other organs (ICD-10) Family History Mother Family history of CHF (congestive heart failure) Family history of myocardial infarction Family history of hypertension Family history of diabetes mellitus Family history of COPD (chronic obstructive pulmonary disease) Grandmother Family history of CHF (congestive heart failure) Brother Family history of CHF (congestive heart failure) Family history of myocardial infarction Family history of hypertension Family history of COPD (chronic obstructive pulmonary disease) Father Kidney failure Social History Within the past year, how often did you have a drink containing alcohol: never Score interpretation: A score less than 4 is consistent with normal alcohol consumption. Smoking status: Former smoker Non-prescribed substance use: denies use Known occupational exposures/hazards: No Highest level of school completed/degree received: some college, no degree Do you want help with school or training: No Little interest or pleasure in doing things: not at all Feeling down, depressed, or hopeless: not at all Gender Identity: male Meds Home Medications and Allergies Home Medications ?Medication ?Instructions ?Recorded ?Confirmed ?Type acetaminophen 500 mg capsule 1,000 mg PO Q6H PRN fever or pain 02/26/24 05/03/24 History allopurinol 300 mg tablet 300 mg PO DAILY 02/26/24 05/03/24 History amlodipine 10 mg tablet 10 mg PO DAILY 02/26/24 05/03/24 History apixaban 5 mg tablet (Eliquis) 5 mg PO Q12H 02/26/24 05/03/24 History aspirin 81 mg tablet,delayed 81 mg PO .weekly 02/26/24 05/03/24 History release (Adult Aspirin Regimen) calcium 315 mg (as 1 tab PO DAILY 02/26/24 05/03/24 History citrate)-vitamin D3 5 mcg (200 unit) tablet (Calcium Citrate + D) carvedilol 6.25 mg tablet 6.25 mg PO Q12H 02/26/24 05/03/24 History cyanocobalamin (vitamin B-12) 1,000 mcg PO DAILY 02/26/24 05/03/24 History 1,000 mcg tablet (Vitamin B-12) ferrous sulfate 325 mg (65 mg 325 mg PO DAILY 02/26/24 05/03/24 History iron) tablet (iron) furosemide 20 mg tablet 20 mg PO Q12H 02/26/24 05/03/24 History glipizide 10 mg tablet 10 mg PO BID 02/26/24 05/03/24 History hydralazine 50 mg tablet 100 mg PO Q8H 02/26/24 05/03/24 History insulin glargine 100 unit/mL (3 26 unit subcut BID 02/26/24 05/03/24 History mL) subcutaneous pen multivitamin (Daily Multi-Vitamin 1 tab PO DAILY 02/26/24 05/03/24 History tablet) omeprazole 20 mg capsule,delayed 20 mg PO DAILY 02/26/24 05/03/24 History release semaglutide 1 mg/dose (4 mg/3 mL) 1 mg subcut QWEEK 02/26/24 05/03/24 History subcutaneous pen injector (Ozempic) sildenafil 100 mg tablet 100 mg PO Q24H PRN sexual activity 02/26/24 05/03/24 History simvastatin 20 mg tablet 20 mg PO DAILY 02/26/24 05/03/24 History spironolactone 25 mg tablet 25 mg PO DAILY 02/26/24 05/03/24 History tacrolimus 0.1 % topical ointment 1 applic topical Q12H PRN skin 02/26/24 05/03/24 History irritation terazosin 10 mg capsule 10 mg PO BEDTIME 02/26/24 05/03/24 History mirabegron 25 mg tablet,extended 25 mg PO DAILY #30 tabs 03/30/24 05/03/24 Rx release 24 hr (Myrbetriq) diclofenac sodium 1 % topical gel 2 g topical BID 04/05/24 05/03/24 History ruxolitinib 1.5 % topical cream 1 applic topical BID PRN dermatitis 04/05/24 05/03/24 History (Opzelura) tolterodine 2 mg capsule,extended 2 mg PO Q24H 04/05/24 05/03/24 History release 24 hr fluconazole 200 mg tablet 400 mg PO Q24H 04/16/24 05/03/24 History finasteride 5 mg tablet 5 mg PO DAILY 05/03/24 05/03/24 History Allergies Allergy/AdvReac Type Severity Reaction Status Date / Time fosinopril (From Monopril) Allergy Severe shortness Verified 05/02/24 22:19 of breath metoprolol Allergy Severe shortness Verified 05/02/24 22:19 of breath strawberry Allergy Severe Rash Verified 05/02/24 22:19 Exam Constitutional Vital Signs, click to edit/add: Last Vital Signs Temp 97.8 F 05/03/24 04:00 Pulse 90 05/03/24 06:14 Resp 20 05/03/24 04:10 BP 115/65 05/03/24 04:00 Pulse Ox 93 L 05/03/24 04:10 O2 Del Method Nasal Cannula 05/03/24 04:10 O2 Flow Rate 2 05/03/24 04:10 Documenting provider has reviewed patient's vital signs: yes Common normals: apparent distress (Mild conversational dyspnea and cough throughout the evaluation) Lymph Lymphatic: no lymphadenopathy noted Chest Common normals: inspection of chest normal Respiratory Common normals: abnormal respiratory effort (Mild conversational dyspnea and cough throughout the evaluation) and not clear to ascultation bilaterally Effort & inspection: tachypneic Auscultation: rhonchi Cardio Common normals: regular rate and regular rhythm GI Common normals: negative for Normal to inspection, nondistended, normoactive bowel sounds present (Obese) Extremity Common normals: normal to inspection, full ROM and no clubbing, cyanosis or edema Results Labs Labs: Short CBC 05/02/24 Range/Units 22:50 WBC 11.8 H (4.0-11.0) 10^3/uL Hgb 10.2 L (14.0-18.0) g/dL Hct 30.1 L (42.0-54.0) % Plt Count 226 (150-450) 10^3/uL BMP 05/02/24 22:50 Sodium 133 L Potassium 4.9 Chloride 100 Carbon Dioxide 25.2 BUN 38.0 H Creatinine 1.76 H Glucose 137 H Calcium 8.4 L Assessment and Plan Assessment and Plan (1) Pneumonia: (2) Hospital acquired PNA: Plan Admission findings: Acute hypoxia with O2 sat of 90 on 2 L, chest x-ray consistent with multifocal pneumonia which would be healthcare acquired pneumonia, left pleural effusion, leukocytosis, hyponatremia, chronically elevated BNP Healthcare acquired pneumonia with hypoxia-can titrate his supplemental oxygen as needed, IV antibiotics, broad-spectrum secondary to the healthcare acquired pneumonia, they were able obtain a sputum culture last night, will see if we get results on that in the next 36 to 48 hours Chronic UTIs-will repeat culture although his last 2 have been clear, history of fungal cystitis Hypertension-continue with home medications Generalized arthritis-continued home medications Long-term anticoagulant use-maintain current medications BPH-continue with home medications NIDDM-insulin sliding scale GERD continue with home medications Hypercholesterolemia continue with home medications Chronic combined congestive heart failure-IV Lasix today Admission status: Patient with recent hospitalization for pneumonia, now progressed to multifocal pneumonia, this to be healthcare acquired pneumonia, medically necessary treatment will span 2 midnights. Inpatient status. Urinary Catheter Management Urinary Catheter Management Urethral: Cath placed during this visit: no
[2024-05-03 06:40] LABS: Basophils Percent Auto 0.1 % (0.2-2.0); Eosinophils Absolute Auto 0.2 10^3/uL (0.0-0.7); Hematocrit 28.8 % (42.0-54.0); Hemoglobin 9.5 g/dL (14.0-18.0); Immature Granulocytes Abs Auto 0.07 10^3/uL (0.00-0.03); Immature Granulocytes Pct Auto 0.6 % (0.0-0.5); Lymphocytes Absolute Auto 1.1 10^3/uL (1.2-3.8); Lymphocytes Percent Auto 9.6 % (20.5-60.0); Mean Corpuscular Hemoglobin 31.7 pg (25.9-34.0); Mean Platelet Volume 8.7 fL (9.5-13.5); Monocytes Percent Auto 8.9 % (1.7-12.0); Neutrophils Percent Auto 78.8 % (43.0-75.0); Platelet Count 209 10^3/uL (150-450); Red Cell Distribution Width 16.1 % (11.0-15.0); White Blood Count 11.4 10^3/uL (4.0-11.0)
[2024-05-03 07:03] LABS: Alanine Aminotransferase 18 U/L (16-63); Albumin Globulin Ratio 0.9; Albumin Level 2.4 g/dL (3.4-5.0); Alkaline Phosphatase 52 U/L (46-116); Anion Gap 12.5; Aspartate Amino Transferase 15 U/L (15-37); BUN Creatinine Ratio 21.7; Bilirubin Total 0.4 mg/dL (0.2-1.0); Carbon Dioxide 23.9 mmol/L (21.0-32.0); Chloride 103 mmol/L (98-107); Estimated GFR (African America 49 (>=60 mL/min/1.73m^2); Estimated GFR (Non-African Ame 40 (>=60 mL/min/1.73m^2); Globulin 2.8 g/dL; Glucose 77 mg/dL (74-106); Magnesium 1.9 mg/dL (1.8-2.4); Potassium 4.4 mmol/L (3.5-5.1); Sodium 135 mmol/L (136-145); Total Protein 5.2 g/dL (6.4-8.2)
[2024-05-03 07:26] LABS: NT Pro B Type Natriuretic Pept >35000.0 pg/mL (<=1800.0)
--- NOTE | 2024-05-03 08:53 | CM.NOTE ---
Rounds made with Dr. Dutta, plasticator consulted for further recommendations. Pt is active with [facility] and has home oxygen with [facility].
[2024-05-03] MEDS: PIPERACILLIN SODIUM/TAZOBACTAM 3.375 GM in 0.9 % SODIUM CHLORIDE 50 ML IV ×2 (09:20→16:28)
[2024-05-03] MEDS: LINEZOLID IN DEXTROSE 5% 600 MG/300 ML PIGGYBACK 300 MG IV ×2 (09:21→22:11)
[2024-05-03] MEDS: OMEPRAZOLE 20 MG CAPSULE.DR PO (09:21)
[2024-05-03] MEDS: FINASTERIDE 5 MG TABLET PO (09:21)
[2024-05-03] MEDS: AMLODIPINE BESYLATE 5 MG TABLET 10 MG PO (09:22)
[2024-05-03] MEDS: FOLIC ACID/VIT B6/VIT B12 TABLET 1 TAB PO (09:22)
[2024-05-03] MEDS: APIXABAN 5 MG TABLET PO ×2 (09:22→22:12)
[2024-05-03] MEDS: ATORVASTATIN CALCIUM 10 MG TABLET PO (09:22)
[2024-05-03] MEDS: SPIRONOLACTONE 25 MG TABLET PO (09:22)
[2024-05-03] MEDS: OXYBUTYNIN CHLORIDE 5 MG TAB XL PO (09:22)
[2024-05-03] MEDS: FERROUS SULFATE 325 MG TABLET PO (09:22)
[2024-05-03] MEDS: CARVEDILOL 6.25 MG TABLET PO ×2 (09:22→22:12)
[2024-05-03] MEDS: GLIPIZIDE 10 MG TABLET PO ×2 (09:22→16:27)
[2024-05-03] MEDS: ALLOPURINOL 300 MG TABLET PO (09:22)
[2024-05-03] MEDS: INSULIN GLARGINE 300 UNIT/3 ML INSULN.PEN 26 UNIT SQ ×2 (09:23→22:14)
[2024-05-03] MEDS: 0.9 % SODIUM CHLORIDE 250 ML 10 ML IV (09:25)
--- NOTE | 2024-05-03 09:30 | CM.NOTE ---
Important Message From [employer] discussed with pt, pt verbalizes understanding and signs paper. Original given to pt and copy placed on pt's chart.
--- NOTE | 2024-05-03 12:35 | SWNOTE1 ---
SW spoke to case management pt has Sara and wears home oxygen at 2 liters from [facility].
[2024-05-03] MEDS: BENZONATATE 100 MG CAPSULE 200 MG PO ×2 (13:37→22:13)
--- NOTE | 2024-05-03 14:01 | SWNOTE1 ---
DARRIUS faxed ED note and PT/OT notes from today to [facility].
[2024-05-03] MEDS: METHYLPREDNISOLONE SOD SUCC PF 40 MG/ML VIAL IVP ×3 (14:13→22:12)
[2024-05-03] MEDS: PANTOPRAZOLE SODIUM 40 MG VIAL IV (14:13)
[2024-05-03] MEDS: FUROSEMIDE 40 MG/4 ML VIAL IVP ×2 (14:14→22:12)
--- NOTE | 2024-05-03 15:07 | P.PLHP_ITS ---
History of Present Illness History of Present Illness Chief complaint: Shortness of Breath Narrative: 78yo male, already seen by me on a prior admission 04/19/2024 & 04/20/2024 - please see those notes for past history. He was seen at that time for pneumonia, acute on chronic diastolic congestive heart failure, acute exacerbation of COPD, and acute hypoxic respiratory failure. He was discharged on supplemental O2, which was new for him. He returns back to [facility] with worsening dyspnea and increased edema. He has dyspnea, especially with exertion, productive cough, states he has had mild hemoptysis off-and-on of streaks of blood, no overt clots. Denies any fevers, chills, sweats, rigors. Not following any fluid restriction. States he is trying to follow a low sodium diet. Denies any fast food. Avoids deli meats and canned food. The patient has multiple admissions overt the past ~2 months, initially for UTI, and then CHF & pneumonia. ER/Admission dates, with antibiotics at discharge: -05/02/2024: Pneumonia, AECOPD, AECHF ? Current admission (Zosyn + Zyvox) -04/15/2024: Pneumonia, AECOPD, AECHF ? Cefdinir, clindamycin -04/08/2024: Pneumonia, AECOPD, AECHF ? Levofloxacin -04/05/2024: Pneumonia, AECOPD, AECHF ? Levofloxacin -03/28/2024: UTI ? Cefdinir -03/11/2025: UTI ? Augmentin -02/25/2025: UTI ? Ciprofloxacin Review of Systems ROS Status of ROS 10 or more systems reviewed and unremark able except as noted in history and below [facility] Medical History (Updated 05/03/24 @ 00:54 by Hector Vasquez MD) Hospital acquired PNA ?J18.9 - Pneumonia, unspecified organism (ICD-10) ?Y95 - Nosocomial condition (ICD-10) Acute on chronic diastolic (congestive) heart failure ?I50.33 - Acute on chronic diastolic (congestive) heart failure (ICD-10) Shortness of breath ?R06.02 - Shortness of breath (ICD-10) Congestive heart failure ?I50.9 - Heart failure, unspecified (ICD-10) Pneumonia ?J18.9 - Pneumonia, unspecified organism (ICD-10) Severe sepsis ?A41.9 - Sepsis, unspecified organism (ICD-10) ?R65.20 - Severe sepsis without septic shock (ICD-10) COPD exacerbation ?J44.1 - Chronic obstructive pulmonary disease with (acute) exacerbation (ICD-10) Acute exacerbation of chronic heart failure ?I50.9 - Heart failure, unspecified (ICD-10) Acute hypoxemic respiratory failure ?J96.01 - Acute respiratory failure with hypoxia (ICD-10) Acute kidney injury ?N17.9 - Acute kidney failure, unspecified (ICD-10) Bladder spasm ?N32.89 - Other specified disorders of bladder (ICD-10) Urinary tract infection ?N39.0 - Urinary tract infection, site not specified (ICD-10) Urinary tract infection ?N39.0 - Urinary tract infection, site not specified (ICD-10) Failure of outpatient treatment ?Z78.9 - Other specified health status (ICD-10) Urinary tract infection ?N39.0 - Urinary tract infection, site not specified (ICD-10) Skin cancer ?C44.90 - Unspecified malignant neoplasm of skin, unspecified (ICD-10) Myocardial infarction ?I21.9 - Acute myocardial infarction, unspecified (ICD-10) Pacemaker ?Z95.0 - Presence of cardiac pacemaker (ICD-10) CKD (chronic kidney disease) ?N18.9 - Chronic kidney disease, unspecified (ICD-10) CAD (coronary artery disease) ?I25.10 - Atherosclerotic heart disease of [place] coronary artery without angina pectoris (ICD-10) A-fib ?I48.91 - Unspecified atrial fibrillation (ICD-10) Erectile dysfunction ?N52.9 - Male erectile dysfunction, unspecified (ICD-10) UTI (urinary tract infection) ?N39.0 - Urinary tract infection, site not specified (ICD-10) GERD (gastroesophageal reflux disease) ?K21.9 - Gastro-esophageal reflux disease without esophagitis (ICD-10) Hypertension ?I10 - Essential (primary) hypertension (ICD-10) Diabetes ?E11.9 - Type 2 diabetes mellitus without complications (ICD-10) Surgical History History of arthroscopic knee surgery ?Z98.890 - Other specified postprocedural states (ICD-10) Hx of tonsillectomy ?Z90.89 - Acquired absence of other organs (ICD-10) Family History Mother Family history of CHF (congestive heart failure) Family history of myocardial infarction Family history of hypertension Family history of diabetes mellitus Family history of COPD (chronic obstructive pulmonary disease) Grandmother Family history of CHF (congestive heart failure) Brother Family history of CHF (congestive heart failure) Family history of myocardial infarction Family history of hypertension Family history of COPD (chronic obstructive pulmonary disease) Father Kidney failure Social History Within the past year, how often did you have a drink containing alcohol: never Score interpretation: A score less than 4 is consistent with normal alcohol consumption. Smoking status: Former smoker Non-prescribed substance use: denies use Known occupational exposures/hazards: No Highest level of school completed/degree received: some college, no degree Do you want help with school or training: No Little interest or pleasure in doing things: not at all Feeling down, depressed, or hopeless: not at all Gender Identity: male Meds Home Medications and Allergies Home Medications ?Medication ?Instructions ?Recorded ?Confirmed ?Type acetaminophen 500 mg capsule 1,000 mg PO Q6H PRN fever or pain 02/26/24 05/03/24 History allopurinol 300 mg tablet 300 mg PO DAILY 02/26/24 05/03/24 History amlodipine 10 mg tablet 10 mg PO DAILY 02/26/24 05/03/24 History apixaban 5 mg tablet (Eliquis) 5 mg PO Q12H 02/26/24 05/03/24 History aspirin 81 mg tablet,delayed 81 mg PO .weekly 02/26/24 05/03/24 History release (Adult Aspirin Regimen) calcium 315 mg (as 1 tab PO DAILY 02/26/24 05/03/24 History citrate)-vitamin D3 5 mcg (200 unit) tablet (Calcium Citrate + D) carvedilol 6.25 mg tablet 6.25 mg PO Q12H 02/26/24 05/03/24 History cyanocobalamin (vitamin B-12) 1,000 mcg PO DAILY 02/26/24 05/03/24 History 1,000 mcg tablet (Vitamin B-12) ferrous sulfate 325 mg (65 mg 325 mg PO DAILY 02/26/24 05/03/24 History iron) tablet (iron) furosemide 20 mg tablet 20 mg PO Q12H 02/26/24 05/03/24 History glipizide 10 mg tablet 10 mg PO BID 02/26/24 05/03/24 History hydralazine 50 mg tablet 100 mg PO Q8H 02/26/24 05/03/24 History insulin glargine 100 unit/mL (3 26 unit subcut BID 02/26/24 05/03/24 History mL) subcutaneous pen multivitamin (Daily Multi-Vitamin 1 tab PO DAILY 02/26/24 05/03/24 History tablet) omeprazole 20 mg capsule,delayed 20 mg PO DAILY 02/26/24 05/03/24 History release semaglutide 1 mg/dose (4 mg/3 mL) 1 mg subcut QWEEK 02/26/24 05/03/24 History subcutaneous pen injector (Ozempic) sildenafil 100 mg tablet 100 mg PO Q24H PRN sexual activity 02/26/24 05/03/24 History simvastatin 20 mg tablet 20 mg PO DAILY 02/26/24 05/03/24 History spironolactone 25 mg tablet 25 mg PO DAILY 02/26/24 05/03/24 History tacrolimus 0.1 % topical ointment 1 applic topical Q12H PRN skin 02/26/24 05/03/24 History irritation terazosin 10 mg capsule 10 mg PO BEDTIME 02/26/24 05/03/24 History mirabegron 25 mg tablet,extended 25 mg PO DAILY #30 tabs 03/30/24 05/03/24 Rx release 24 hr (Myrbetriq) diclofenac sodium 1 % topical gel 2 g topical BID 04/05/24 05/03/24 History ruxolitinib 1.5 % topical cream 1 applic topical BID PRN dermatitis 04/05/24 05/03/24 History (Opzelura) tolterodine 2 mg capsule,extended 2 mg PO Q24H 04/05/24 05/03/24 History release 24 hr fluconazole 200 mg tablet 400 mg PO Q24H 04/16/24 05/03/24 History finasteride 5 mg tablet 5 mg PO DAILY 05/03/24 05/03/24 History Allergies Allergy/AdvReac Type Severity Reaction Status Date / Time fosinopril (From Monopril) Allergy Severe shortness Verified 05/02/24 22:19 of breath metoprolol Allergy Severe shortness Verified 05/02/24 22:19 of breath strawberry Allergy Severe Rash Verified 05/02/24 22:19 Exam Constitutional Vital Signs, click to edit/add: Last Vital Signs Temp 97.8 F 05/03/24 13:28 Pulse 97 H 05/03/24 13:46 Resp 16 05/03/24 13:28 BP 137/73 05/03/24 13:28 Pulse Ox 92 L 05/03/24 13:28 O2 Del Method Room Air 05/03/24 13:28 O2 Flow Rate 2 05/03/24 11:45 Common normals: no apparent distress Other: Laying reclined in bed HENMT Other: Oral candidiasis not present Chest Common normals: inspection of chest normal Respiratory Other: Breath sounds similar to yesterday, diffuse crackles posteriorly, no wheezes. Cardio Other: Continues to have diffuse crackles bilaterally. No wheezes. No egophony or dullness to percussion. Other: Gomez Extremity Other: 2+ BLE Neuro Other: No fasciculations Psych Other: Calm, appropriate demeanor Results Laboratory Findings Abnormal lab findings: Abnormal Labs 05/02/24 05/03/24 22:50 06:13 WBC 11.8 H 11.4 H RBC 3.12 L 3.00 L Hgb 10.2 L 9.5 L Hct 30.1 L 28.8 L MCV 96.5 H 96.0 H RDW 16.2 H 16.1 H MPV 9.0 L 8.7 L Neut % (Auto) 78.8 H Lymph % (Auto) 9.6 L Baso % (Auto) 0.1 L Neut # (Auto) 9.0 H Lymph # (Auto) 1.1 L Lucas # (Auto) 1.0 H Abs Immat Gran (auto) 0.07 H Seg Neuts % (Manual) 87.0 H Lymphocytes % (Manual) 6.0 L Eosinophils % (Manual) 0.0 L Basophils % (Manual) 0.0 L Imm/Tot Granulo (auto) 0.6 H Neutrophils # (Manual) 10.26 H Lymphocytes # (Manual) 0.70 L Sodium 133 L 135 L BUN 38.0 H 36.0 H Creatinine 1.76 H 1.66 H Est GFR ( Amer) 46 L 49 L Est GFR (Non-Af Amer) 38 L 40 L Glucose 137 H Calcium 8.4 L 8.0 L NT-Pro-B Natriuret Pep >54813.0 H* >09327.0 H* Total Protein 5.2 L Albumin 2.4 L Diagnostic Findings Chest x-ray: report reviewed and image reviewed Assessment and Plan Assessment and Plan (1) Acute on chronic diastolic (congestive) heart failure: Assessment and Plan: 1. Acute on chronic diastolic CHF. This appears to be the main cause for his symptoms. He has increased bilateral lower leg edema continues to have diffuse crackles. Chest x-ray could be interpreted as either multifocal pneumonia or pulmonary edema. Continues to have bilateral crackles. BNP continues to be greater than 35,000 with slight a somewhat unchanged creatinine. I recommend diuresis +/- cardiology consultation (which [facility] has seen him in the past) 2. Pneumonia, unspecified. Patient has been treated for pneumonia now for his fourth visit within the last month. He has received multiple antibiotics. Difficult to tell if findings are secondary to pneumonia versus CHF. He does not appear toxic. He does have a productive cough and is stating occasional hemoptysis. If patient is able to provide a sputum sample, that is highly recommended. Continue pulmonary toilet. May need to consider chest CT if no improvement. 3. COPD. Patient does not have any wheezes. Unclear if he needs steroids at this point. He has been on steroids off and on from his hospitalizations over the last month; this could be contributing to some of his edema as well. 4. Chronic hypoxic respiratory failure.He has required supplemental O2 since his last visit. During my examination, he initially had his nasal cannula on his side of his face, so he was not really getting any supplemental O2 (unless he miraculously is able to absorb O2 through osmosis). I checked his SpO2 and it was 89% on room air. I placed him back on his nasal cannula correctly, with the prongs in his nares, and SpO2 improved to 92%. 5. History of tobacco abuse.
[2024-05-03] MEDS: TERAZOSIN HCL 5 MG CAPSULE 10 MG PO (22:12)
[2024-05-04] VITALS (24 sets, daily range): BP systolic 132–157; BP diastolic 61–82; PULSE 70–96; TEMP 36.4–36.7; O2SAT 90–96
[2024-05-04] MEDS: PIPERACILLIN SODIUM/TAZOBACTAM 3.375 GM in 0.9 % SODIUM CHLORIDE 50 ML IV ×3 (00:33→16:36)
[2024-05-04] MEDS: METHYLPREDNISOLONE SOD SUCC PF 40 MG/ML VIAL IVP ×4 (04:43→21:31)
[2024-05-04] MEDS: IPRATROPIUM/ALBUTEROL SULFATE 3 ML AMPUL.NEB IH ×4 (04:47→20:02)
[2024-05-04] MEDS: BENZONATATE 100 MG CAPSULE 200 MG PO ×3 (05:03→21:31)
[2024-05-04] MEDS: HYDRALAZINE HCL 50 MG TABLET 100 MG PO ×3 (05:03→21:31)
--- NOTE | 2024-05-04 06:10 | P.PN_ITS ---
Progress Note: Subjective Subjective Interval history: Patient states still with significant cough and some shortness of breath, reviewed notes with patient from pulmonology Exam Constitutional Vital Signs, click to edit/add: Last Vital Signs Temp 98.1 F 05/04/24 04:00 Pulse 87 05/04/24 06:06 Resp 18 05/04/24 04:47 BP 142/67 H 05/04/24 05:03 Pulse Ox 91 L 05/04/24 04:47 O2 Del Method Home BIPAP / CPAP 05/04/24 04:47 O2 Flow Rate 3 05/04/24 04:47 Documenting provider has reviewed patient's vital signs: yes Common normals: no apparent distress Other: Laying reclined in bed HENMT Other: Wearing nasal cannula Lymph Lymphatic: no lymphadenopathy noted Chest Common normals: inspection of chest normal Respiratory Common normals: abnormal respiratory effort (Mild conversational dyspnea and cough throughout the evaluation) and not clear to ascultation bilaterally Effort & inspection: tachypneic Auscultation: rhonchi (Sounds improved) Other: Diminished breath sounds. Slightly improved with less crackles in the upper lung mendoza. Cardio Common normals: regular rate, regular rhythm and no murmurs Other: Continues to have diffuse crackles bilaterally. No wheezes. No egophony or dullness to percussion. GI Common normals: negative for Normal to inspection, nondistended, normoactive bowel sounds present (Obese) Other: Gomez Extremity Common normals: normal to inspection (1+ edema, that is probably his baseline) and full ROM; clubbing, cyanosis or edema Other: Continues to have 2+ BLE Neuro Other: No fasciculations Psych Other: Calm, appropriate demeanor Progress Note: Objective Labs Labs: Short CBC 05/03/24 Range/Units 06:13 WBC 11.4 H (4.0-11.0) 10^3/uL Hgb 9.5 L (14.0-18.0) g/dL Hct 28.8 L (42.0-54.0) % Plt Count 209 (150-450) 10^3/uL BMP 05/03/24 06:13 Sodium 135 L Potassium 4.4 Chloride 103 Carbon Dioxide 23.9 BUN 36.0 H Creatinine 1.66 H Glucose 77 Calcium 8.0 L Liver Function 05/03/24 Range/Units 06:13 Total Bilirubin 0.4 (0.2-1.0) mg/dL AST 15 (15-37) U/L ALT 18 (16-63) U/L Alkaline Phosphatase 52 (46-116) U/L Albumin 2.4 L (3.4-5.0) g/dL Progress Note: A&P Assessment and Plan (1) Pneumonia: (2) Hospital acquired PNA: Plan Admission findings: Acute hypoxia with O2 sat of 90 on 2 L, chest x-ray consistent with multifocal pneumonia which would be healthcare acquired pneum onia, left pleural effusion, leukocytosis, hyponatremia, chronically elevated BNP Healthcare acquired pneumonia with hypoxia-can titrate his supplemental oxygen as needed,, he did need to be placed on 3 L last night, maintain current antibiotic regiment, sputum culture is pending, white blood cell count is improved to normal Acute combined congestive heart failure-pulmonology suggesting more related to heart failure, will reconsult cardiology will try patient on Aldactone increased dose, Bumex drip and albumin. Chronic UTIs-will repeat culture although his last 2 have been clear, history of fungal cystitis Hypertension-continue with home medications Generalized arthritis-continued home medications Long-term anticoagulant use-maintain current medications BPH-continue with home medications NIDDM-insulin sliding scale GERD continue with home medications Hypercholesterolemia continue with home medications Chronic combined congestive heart failure-IV Lasix today Admission status: Patient with recent hospitalization for pneumonia, now progressed to multifocal pneumonia, this to be healthcare acquired pneumonia, medically necessary treatment will span 2 midnights. Inpatient status. Urinary Catheter Management Urinary Catheter Management Urethral: Cath placed during this visit: no
[2024-05-04 06:22] LABS: Bilirubin Urine NEGATIVE (NEGATIVE); Blood Urine NEGATIVE (NEGATIVE); Clarity Urine CLEAR (CLEAR); Color Urine LT. YELLOW (YELLOW); Glucose Urine UA NEGATIVE (NEGATIVE); Ketones Urine NEGATIVE (NEGATIVE); Leukocyte Esterase Urine NEGATIVE (NEGATIVE); Nitrite Urine NEGATIVE (NEGATIVE); Protein Urine 100 mg/dL (NEG/TRACE); Urobilinogen Urine 0.2 EU/dL (0.2-1.0); pH Urine 5.5 (5.0-9.0)
[2024-05-04 06:28] LABS: Hematocrit 26.8 % (42.0-54.0); Hemoglobin 8.8 g/dL (14.0-18.0); Immature Granulocytes Abs Auto 0.03 10^3/uL (0.00-0.03); Immature Granulocytes Pct Auto 0.5 % (0.0-0.5); Lymphocytes Absolute Auto 0.2 10^3/uL (1.2-3.8); Lymphocytes Percent Auto 4.1 % (20.5-60.0); Mean Corpuscular HGB Conc 32.8 g/dL (29.9-35.2); Mean Corpuscular Hemoglobin 31.4 pg (25.9-34.0); Mean Corpuscular Volume 95.7 fL (80.0-94.0); Mean Platelet Volume 8.9 fL (9.5-13.5); Monocytes Absolute Auto 0.1 10^3/uL (0.3-0.8); Monocytes Percent Auto 1.2 % (1.7-12.0); Neutrophils Absolute Auto 5.3 10^3/uL (1.4-6.5); Neutrophils Percent Auto 94.2 % (43.0-75.0); Platelet Count 179 10^3/uL (150-450); Red Cell Distribution Width 15.6 % (11.0-15.0); White Blood Count 5.6 10^3/uL (4.0-11.0)
[2024-05-04 06:34] LABS: Bacteria Urine SMALL #/HPF (NONE SEEN); Cast Seen? NONE SEEN #/LPF (NONE SEEN); Crystals Seen? None Seen #/HPF (None Seen); Mucus Urine NONE SEEN (NONE SEEN); RBC Urine 0-2 #/HPF (0-2); Squamous Epithelial Cell Urine NONE SEEN #/LPF (NONE/RARE); Urine Culture Indicated LABCORP; WBC Urine 0-2 #/HPF (NONE SEEN)
[2024-05-04 06:54] LABS: Alanine Aminotransferase 19 U/L (16-63); Albumin Globulin Ratio 0.8; Albumin Level 2.3 g/dL (3.4-5.0); Alkaline Phosphatase 51 U/L (46-116); Anion Gap 12.7; Aspartate Amino Transferase 17 U/L (15-37); BUN Creatinine Ratio 19.4; Bilirubin Total 0.5 mg/dL (0.2-1.0); Calcium 8.2 mg/dL (8.5-10.1); Carbon Dioxide 24.5 mmol/L (21.0-32.0); Chloride 100 mmol/L (98-107); Estimated GFR (African America 38 (>=60 mL/min/1.73m^2); Estimated GFR (Non-African Ame 31 (>=60 mL/min/1.73m^2); Globulin 2.8 g/dL; Glucose 266 mg/dL (74-106); Magnesium 1.9 mg/dL (1.8-2.4); Potassium 4.2 mmol/L (3.5-5.1); Sodium 133 mmol/L (136-145); Total Protein 5.1 g/dL (6.4-8.2)
[2024-05-04 07:08] LABS: NT Pro B Type Natriuretic Pept >35000.0 pg/mL (<=1800.0)
--- NOTE | 2024-05-04 07:54 | P.PLPN_ITS ---
Progress Note: A&P Assessment and Plan (1) Acute on chronic diastolic (congestive) heart failure: Assessment and Plan: 1. Acute on chronic diastolic CHF. I/O's show a net -950 mL out yesterday. He continues to have 2+ lower extremity pitting edema, but breathing is less labored and there are decreased crackles in the chest. Plan will be to continue with diuresis today. 2. Pneumonia, unspecified. No identified agent. Continue with antibiotics for now. 3. COPD. No wheezes auscultated today. 4. Chronic hypoxic respiratory failure supplemental O2. Continues to require supplemental oxygen. Anticipate he will continue to need it at discharge. 5. VIRGILIO. Continue using home PAP unit. 6. History of tobacco abuse. 7. Obesity. BMI 31.2. Subjective Subjective Interval history: Patient states he is breathing a little bit better today. It is less labored. He still requires supplemental O2 which upsets him. He is coughing less, it is less productive. He denies any hemoptysis over the last 24 hours. He has no new pulmonary concerns today. Exam Constitutional Vital Signs, click to edit/add: Last Vital Signs Temp 97.6 F 05/04/24 07:41 Pulse 86 05/04/24 07:44 Resp 19 05/04/24 07:44 BP 132/64 05/04/24 07:41 Pulse Ox 92 L 05/04/24 07:41 O2 Del Method Nasal Cannula 05/04/24 07:41 O2 Flow Rate 3 05/04/24 04:47 Common normals: no apparent distress Other: Laying reclined in bed HENAZ Other: Wearing nasal cannula Chest Common normals: inspection of chest normal Respiratory Other: Diminished breath sounds. Slightly improved with less crackles in the upper owen g mendoza. Cardio Other: Continues to have diffuse crackles bilaterally. No wheezes. No egophony or dullness to percussion. Other: Gomez Extremity Other: Continues to have 2+ BLE Neuro Other: No fasciculations Psych Other: Calm, appropriate demeanor
[2024-05-04] MEDS: FERROUS SULFATE 325 MG TABLET PO (08:19)
[2024-05-04] MEDS: CARVEDILOL 6.25 MG TABLET PO ×2 (08:19→21:31)
[2024-05-04] MEDS: FOLIC ACID/VIT B6/VIT B12 TABLET 1 TAB PO (08:19)
[2024-05-04] MEDS: APIXABAN 5 MG TABLET PO ×2 (08:19→21:32)
[2024-05-04] MEDS: GLIPIZIDE 10 MG TABLET PO ×2 (08:19→16:36)
[2024-05-04] MEDS: ATORVASTATIN CALCIUM 10 MG TABLET PO (08:19)
[2024-05-04] MEDS: INSULIN GLARGINE 300 UNIT/3 ML INSULN.PEN 26 UNIT SQ ×2 (08:19→21:35)
[2024-05-04] MEDS: LINEZOLID IN DEXTROSE 5% 600 MG/300 ML PIGGYBACK 300 MG IV (08:19)
[2024-05-04] MEDS: OMEPRAZOLE 20 MG CAPSULE.DR PO (08:19)
[2024-05-04] MEDS: FINASTERIDE 5 MG TABLET PO (08:19)
[2024-05-04] MEDS: OXYBUTYNIN CHLORIDE 5 MG TAB XL PO (08:20)
[2024-05-04] MEDS: ALLOPURINOL 300 MG TABLET PO (08:20)
[2024-05-04] MEDS: AMLODIPINE BESYLATE 5 MG TABLET 10 MG PO (08:20)
[2024-05-04] MEDS: SPIRONOLACTONE 25 MG TABLET 50 MG PO (08:55)
[2024-05-04] MEDS: PANTOPRAZOLE SODIUM 40 MG VIAL IV (08:55)
[2024-05-04] MEDS: INSULIN ASPART 300 UNIT/3 ML PEN SUBQ ×4 (08:55→21:36)
[2024-05-04] MEDS: ALBUMIN HUMAN 25 GM/100 ML PREMIX IV (08:56)
--- NOTE | 2024-05-04 09:37 | CM.NOTE ---
Rounds made with Dr. Dutta, discussed plan of care and continue to diuresis pt today. [employer]bearer consulted on pt today for further recommendations and will also consult cardiology.
[2024-05-04] MEDS: BUMETANIDE 10 MG in 0.9 % SODIUM CHLORIDE 160 ML IV (09:43)
--- NOTE | 2024-05-04 10:22 | PT.DAILY ---
Physical Therapy Daily Note PT Daily Note/Assess Start: 05/04/24 10:02 Freq: Status: Active Protocol: Document 05/04/24 09:40 REX (Rec: 05/04/24 10:21 [email or web address] [id number]) Physical Therapy Daily Note/Assessment Time In/Time Out Time In 09:37 Time Out 10:01 Pain In Pain Unresponsive Pain Level 0 Pain Out Pain Level 0 Subjective Subjective Patient agreeable to therapy. Wants to get up into chair. Therapeutic Exercise Time Therapeutic Exercise 14 Minutes (minutes) Therapeutic Exercise 1 Units Therapeutic Exercise Treatment Therapeutic Exercise Seated exercises completed 20x to improve strength. Treatment Standing exercises completed 10x to improve strength. Therapeutic Activity Time Therapeutic Activity 10 Minutes (minutes) Therapeutic Activity 1 Units Therapeutic Activity Treatment Bed Mobility Ability Modified Independent Chair Transfer Modified Independent Ability Therapeutic Activity Sit to stand 3x from various surfaces modified Ind. at Comments RW. Gait 15' with RW SBA, assistance required for O2 and IV line management. Gait 10' without RW SBA, assistance required for O2 and IV line management. Patient denies being light headed with ambulation today . Mild SOB. Patient on 3 LO2 with SPO2 above 90 percent . Total Physical Therapy Time Total Therapy 24 Minutes Total Physical 2 Therapy Units Summary Daily Note Summary Improved ability with activity and therapy today. Progressed with standing exercises and was able to complete short distance gait without AD, no LOB. Patient will benefit from home health PT at [facility] to work on strength and endurance to improve ability to ambulate community distances.
--- NOTE | 2024-05-04 10:37 | RESP.RT ---
titrated down to 2 LPM NC
--- NOTE | 2024-05-04 13:03 | OT.DAILY ---
Occupational Therapy Daily Note OT Inpatient Daily Visit Note Start: 05/03/24 11:18 Freq: Status: Active Protocol: Document 05/04/24 12:55 [id number] (Rec: 05/04/24 13:03 [id number]) OT Visit Details Time In/Time Out Time In 12:38 Time Out 12:51 OT Treatment Plan Subjective Subjective Pt seated in chair at this time. Reports SOB with conversation. Pt ordered lunch and began wheezing, per report. ON 2L O2 NC. Objective Objective AAOx4. Pt agreeable to self-care tasks at this time. With set up of supplies Pt washed his face, head, axillary area, neck, and chest independently. With consistent activity Pt was SOB and required 1x break. Limited conversation due to increased SOB. Demonstrates intermittent coughing. Following tasks Pt was audibly wheezing. Pt educated that he requires increased stamina and endurance. Assessment Assessment Pt agreeable and cooperative with all tasks. Remains motived to return to [facility]. Eager to return home. Continue OT POC. OT Service Agent Timed Codes Self-Fpc 13 Management minutes ( minutes) Self-Fpc 1 Management units
[2024-05-04] MEDS: LINEZOLID IN DEXTROSE 5% 600 MG/300 ML PIGGYBACK 200 MG IV (21:31)
[2024-05-04] MEDS: TERAZOSIN HCL 5 MG CAPSULE 10 MG PO (21:31)
[2024-05-05] VITALS (22 sets, daily range): BP systolic 125–139; BP diastolic 67–77; PULSE 63–98; TEMP 36.4–36.7; O2SAT 91–95
[2024-05-05] MEDS: PIPERACILLIN SODIUM/TAZOBACTAM 3.375 GM in 0.9 % SODIUM CHLORIDE 50 ML IV ×3 (01:21→17:08)
[2024-05-05] MEDS: IPRATROPIUM/ALBUTEROL SULFATE 3 ML AMPUL.NEB IH ×4 (04:35→20:20)
[2024-05-05] MEDS: HYDRALAZINE HCL 50 MG TABLET 100 MG PO ×3 (05:04→21:00)
[2024-05-05] MEDS: BENZONATATE 100 MG CAPSULE 200 MG PO ×3 (05:04→21:00)
[2024-05-05] MEDS: METHYLPREDNISOLONE SOD SUCC PF 40 MG/ML VIAL IVP ×3 (05:05→20:57)
[2024-05-05 05:51] LABS: Hematocrit 26.4 % (42.0-54.0); Hemoglobin 8.8 g/dL (14.0-18.0); Immature Granulocytes Abs Auto 0.06 10^3/uL (0.00-0.03); Immature Granulocytes Pct Auto 0.5 % (0.0-0.5); Lymphocytes Absolute Auto 0.3 10^3/uL (1.2-3.8); Lymphocytes Percent Auto 2.5 % (20.5-60.0); Mean Corpuscular HGB Conc 33.3 g/dL (29.9-35.2); Mean Corpuscular Hemoglobin 31.8 pg (25.9-34.0); Mean Corpuscular Volume 95.3 fL (80.0-94.0); Mean Platelet Volume 9.4 fL (9.5-13.5); Monocytes Absolute Auto 0.2 10^3/uL (0.3-0.8); Monocytes Percent Auto 2.1 % (1.7-12.0); Neutrophils Absolute Auto 10.5 10^3/uL (1.4-6.5); Neutrophils Percent Auto 94.9 % (43.0-75.0); Platelet Count 169 10^3/uL (150-450); Red Blood Count 2.77 10^6/uL (4.70-6.10); Red Cell Distribution Width 15.8 % (11.0-15.0); White Blood Count 11.1 10^3/uL (4.0-11.0)
--- NOTE | 2024-05-05 05:57 | P.PN_ITS ---
Progress Note: Subjective Subjective Interval history: Patient still has significant conversational dyspnea and cough Exam Constitutional Vital Signs, click to edit/add: Last Vital Signs Temp 97.6 F 05/05/24 04:00 Pulse 70 05/05/24 04:35 Resp 20 05/05/24 04:35 BP 126/73 05/05/24 04:00 Pulse Ox 91 L 05/05/24 04:35 O2 Del Method Home BIPAP / CPAP 05/05/24 04:35 O2 Flow Rate 2 05/05/24 04:35 Documenting provider has reviewed patient's vital signs: yes Common normals: apparent distress (Some conversational dyspnea persisting) Other: Laying reclined in bed HENMT Other: Wearing nasal cannula Lymph Lymphatic: no lymphadenopathy noted Chest Common normals: inspection of chest normal Respiratory Common normals: abnormal respiratory effort (Mild conversational dyspnea and cough throughout the evaluation) and not clear to ascultation bilaterally Effort & inspection: tachypneic Auscultation: rhonchi (Not significantly improved from previous day) Other: Diminished breath sounds. Slightly improved with less crackles in the upper lung mendoza. Cardio Common normals: regular rate, regular rhythm and no murmurs Other: Continues to have diffuse crackles bilaterally. No wheezes. No egophony or dullness to percussion. GI Common normals: negative for Normal to inspection, nondistended, normoactive bowel sounds present (Obese) Other: Gomez Extremity Common normals: normal to inspection (1+ edema, that is probably his baseline) and full ROM; clubbing, cyanosis or edema Other: Continues to have 2+ BLE Neuro Other: No fasciculations Psych Other: Calm, appropriate demeanor Progress Note: Objective Labs Labs: Short CBC 05/04/24 05/05/24 Range/Units 05:49 04:57 WBC 5.6 11.1 H (4.0-11.0) 10^3/uL Hgb 8.8 L 8.8 L (14.0-18.0) g/dL Hct 26.8 L 26.4 L (42.0-54.0) % Plt Count 179 169 (150-450) 10^3/uL BMP 05/04/24 05:49 Sodium 133 L Potassium 4.2 Chloride 100 Carbon Dioxide 24.5 BUN 40.0 H Creatinine 2.06 H Glucose 266 H Calcium 8.2 L Liver Function 05/04/24 Range/Units 05:49 Total Bilirubin 0.5 (0.2-1.0) mg/dL AST 17 (15-37) U/L ALT 19 (16-63) U/L Alkaline Phosphatase 51 (46-116) U/L Albumin 2.3 L (3.4-5.0) g/dL Urine 05/04/24 Range/Units 06:13 Urine Color Lt. yellow (YELLOW) Urine Clarity Clear (CLEAR) Urine pH 5.5 (5.0-9.0) Ur Specific [place] 1.020 (1.005-1.025) Urine Protein 100 A (NEG/TRACE) mg/dL Urine Glucose (UA) Negative (NEGATIVE) mg/dL Progress Note: A&P Assessment and Plan (1) Pneumonia: (2) Hospital acquired PNA: Plan Admission findings: Acute hypoxia with O2 sat of 90 on 2 L, chest x-ray consistent with multifocal pneumonia which would be healthcare acquired pneumonia, left pleural effusion, leukocytosis, hyponatremia, chronically elevated BNP Healthcare acquired pneumonia with hypoxia-can titrate his supplemental oxygen as needed,, late yesterday able to wean back down to the 2 L of supplemental oxygen, maintain that today Acute combined congestive heart failure-Treatment: Was diuresed yesterday, that was not as is much as expected, I think he is currently euvolemic, he does have some peripheral edema but that is baseline and likely related to hypoalbuminemia Chronic UTIs-will repeat culture although his last 2 have been clear, history of fungal cystitis-dysuria is clear Hypertension-continue with home medications Generalized arthritis-continued home medications Long-term anticoagulant use-maintain current medications BPH-continue with home medications NIDDM-insulin sliding scale-increase sliding scale GERD continue with home medications Hypercholesterolemia continue with home medications Chronic combined congestive heart failure-hold off on further diuretics today Admission status: Patient with recent hospitalization for pneumonia, now progressed to multifocal pneumonia, this to be healthcare acquired pneumonia, medically necessary treatment will span 2 midnights. Inpatient status. Urinary Catheter Management Urinary Catheter Management Urethral: Cath placed during this visit: no
[2024-05-05 06:17] LABS: Alanine Aminotransferase 27 U/L (16-63); Albumin Globulin Ratio 0.9; Albumin Level 2.5 g/dL (3.4-5.0); Alkaline Phosphatase 48 U/L (46-116); Anion Gap 13.7; Aspartate Amino Transferase 15 U/L (15-37); BUN Creatinine Ratio 21.8; Bilirubin Total 0.4 mg/dL (0.2-1.0); Calcium 8.4 mg/dL (8.5-10.1); Carbon Dioxide 25.1 mmol/L (21.0-32.0); Chloride 100 mmol/L (98-107); Estimated GFR (African America 33 (>=60 mL/min/1.73m^2); Estimated GFR (Non-African Ame 27 (>=60 mL/min/1.73m^2); Globulin 2.8 g/dL; Glucose 110 mg/dL (74-106); Magnesium 1.8 mg/dL (1.8-2.4); Potassium 3.8 mmol/L (3.5-5.1); Sodium 135 mmol/L (136-145); Total Protein 5.3 g/dL (6.4-8.2)
[2024-05-05 06:26] LABS: NT Pro B Type Natriuretic Pept >35000.0 pg/mL (<=1800.0)
[2024-05-05] MEDS: LINEZOLID IN DEXTROSE 5% 600 MG/300 ML PIGGYBACK 300 MG IV ×2 (08:02→19:42)
[2024-05-05] MEDS: AMLODIPINE BESYLATE 5 MG TABLET 10 MG PO (08:03)
[2024-05-05] MEDS: OMEPRAZOLE 20 MG CAPSULE.DR PO (08:03)
[2024-05-05] MEDS: FINASTERIDE 5 MG TABLET PO (08:03)
[2024-05-05] MEDS: OXYBUTYNIN CHLORIDE 5 MG TAB XL PO (08:03)
[2024-05-05] MEDS: ATORVASTATIN CALCIUM 10 MG TABLET PO (08:03)
[2024-05-05] MEDS: SPIRONOLACTONE 25 MG TABLET PO (08:03)
[2024-05-05] MEDS: GLIPIZIDE 10 MG TABLET PO ×2 (08:03→17:08)
[2024-05-05] MEDS: 0.9 % SODIUM CHLORIDE 250 ML 10 ML IV ×2 (08:03→19:45)
[2024-05-05] MEDS: ACETAMINOPHEN 500 MG TABLET 1000 MG PO (08:03)
[2024-05-05] MEDS: FOLIC ACID/VIT B6/VIT B12 TABLET 1 TAB PO (08:03)
[2024-05-05] MEDS: ALLOPURINOL 300 MG TABLET PO (08:03)
[2024-05-05] MEDS: FERROUS SULFATE 325 MG TABLET PO (08:03)
[2024-05-05] MEDS: PANTOPRAZOLE SODIUM 40 MG VIAL IV (08:03)
[2024-05-05] MEDS: APIXABAN 5 MG TABLET PO ×2 (08:03→20:56)
[2024-05-05] MEDS: CARVEDILOL 6.25 MG TABLET PO ×2 (08:04→20:56)
[2024-05-05] MEDS: INSULIN GLARGINE 300 UNIT/3 ML INSULN.PEN 26 UNIT SQ ×2 (08:04→20:57)
[2024-05-05] MEDS: GUAIFENESIN 200 MG/DEXTROMETHORPHAN 20 MG 10 ML UNIT DOSE CUP PO (08:05)
--- NOTE | 2024-05-05 08:13 | XR_ITS ---
The [address] [address] Patient Name: LEIGHTON ARCINIEGA MRN: [id number] date: 1945 Sex: M Assigned Patient Location: [place] Current Patient Location: [place] Accession/Order Number: [id number] Exam Date: 05/05/2024 09:11 Report Date: 05/05/2024 09:33 At the request of: LORI MEDINA Procedure: XR chest 2V EXAMINATION: XR chest 2V HISTORY: follow up previous pna ; follow-up pneumonia COMPARISON: XR chest 05/02/2024, 04/27/2024 FINDINGS: LUNGS: Scattered dense infiltrates bilaterally, right greater than left, but slightly improved. VASCULATURE: No increased pulmonary vasculature. PLEURA: No convincing pleural effusions. No pneumothorax. CARDIAC: Stable cardiac pacer. No cardiomegaly. MEDIASTINUM: No visible mass or adenopathy. BONES: No fracture or visible bone lesion. OTHER: Negative. XR/XR chest 2V IMPRESSION: 1. Moderate bilateral pulmonary infiltrates which is slightly improved and are suspected represent slowly resolving pneumonia. Continued follow-up to document complete clearing is recommended. Electronically authenticated by: JOE DU Date: 05/05/2024 09:33
--- NOTE | 2024-05-05 09:00 | CM.NOTE ---
Rounds made with Dr. Dutta. Plan of care reviewed with Mr. Zamarripa. No discharge today.
--- NOTE | 2024-05-05 09:59 | SWNOTE1 ---
2nd notice of Important Message from Medicare reviewed with pt. No questions at this time.
--- NOTE | 2024-05-05 10:36 | PT.DAILY ---
Physical Therapy Daily Note PT Daily Note/Assess Start: 05/04/24 10:02 Freq: Status: Active Protocol: Document 05/05/24 10:31 COLTON (Rec: 05/05/24 10:36 COLTON [id number]) Physical Therapy Daily Note/Assessment Time In/Time Out Time In 09:21 Time Out 09:46 Pain In Pain N/A Pain Out Pain N/A Subjective Subjective Pt sitting in BS chair upon arrival. agreeable to PT at this time. Therapeutic Exercise Time Therapeutic Exercise 8 Minutes (minutes) Therapeutic Exercise 1 Units Therapeutic Exercise Treatment Therapeutic Exercise Pt instructed to complete standing ther ex at RW with Treatment bilat UE support. Pt performs HR, marches, HS curls, hip flexion and mini squats 10x ea. Therapeutic Activity Time Therapeutic Activity 15 Minutes (minutes) Therapeutic Activity 1 Units Therapeutic Activity Treatment Chair Transfer Standby Assistance Ability Therapeutic Activity Sit>stand SBA. Pt performs standing ex at RW with bilat Comments UE support - no LOB noted. Pt amb with RW 3 laps in room for 120' total, SBA with assist for IV pole and O2 lines. Pt needs to use restroom. Toilet transfer SBA using grab bars. Pt is able to doff his own brief. A new one is brought to him but needs assistance feeding catheter through new brief. Pt able to perform pericare IND. SIt>stand SBA. Amb 5' to sink to wash his hands SBA with assist for IV pole. Pt amb 30' back to BS chair with RW, SBA with assist for IV pole and O2 lines . Pt remains in BS chair upon completion with call light within reach and needs met. Total Physical Therapy Time Total Therapy 23 Minutes Total Physical 2 Therapy Units Summary Daily Note Summary Improved gait endurance. Progressed to standing ex with good tolerance - minimal fatigue.
[2024-05-05] MEDS: INSULIN ASPART 300 UNIT/3 ML PEN SUBQ ×3 (11:21→21:01)
[2024-05-05] MEDS: TERAZOSIN HCL 5 MG CAPSULE 10 MG PO (21:00)
[2024-05-06] VITALS (8 sets, daily range): BP systolic 135–137; BP diastolic 74–76; PULSE 75–84; TEMP 36.4–37.1; O2SAT 90–92
[2024-05-06] MEDS: PIPERACILLIN SODIUM/TAZOBACTAM 3.375 GM in 0.9 % SODIUM CHLORIDE 50 ML IV ×2 (00:57→09:40)
[2024-05-06] MEDS: IPRATROPIUM/ALBUTEROL SULFATE 3 ML AMPUL.NEB IH (04:55)
[2024-05-06] MEDS: METHYLPREDNISOLONE SOD SUCC PF 40 MG/ML VIAL IVP (05:09)
[2024-05-06] MEDS: HYDRALAZINE HCL 50 MG TABLET 100 MG PO (05:09)
[2024-05-06] MEDS: BENZONATATE 100 MG CAPSULE 200 MG PO (05:09)
--- NOTE | 2024-05-06 08:00 | P.DS_ITS ---
DS: Providers Provider Date of admission: 05/03/24 01:21 Primary care physician: Jayy Dutta MD Consults: 05/03/24 06:31 Occupational Therapy Eval and Treat Routine Reason for consultation: Only if needed for Rehab Has provider been notified: No Physical Therapy Eval and Treat Routine Reason for consultation: Eval and Treat Has provider been notified: No 05/03/24 06:37 Consult to Pulmonology Routine Consulting Provider: Rick Roy Reason for consultation: recurrent pna Has provider been notified: No DS: Diagnosis Discharge Diagnosis (1) Pneumonia: (2) Hospital acquired PNA: Plan Admission findings: Acute hypoxia with O2 sat of 90 on 2 L, chest x-ray consistent with multifocal pneumonia which would be healthcare acquired pneumonia, left pleural effusion, leukocytosis, hyponatremia, chronically elevated BNP Healthcare acquired pneumonia with hypoxia-can titrate his supplemental oxygen as needed,, late yesterday able to wean back down to the 2 L of supplemental oxygen, maintain that today Acute combined congestive heart failure-Treatment: Was diuresed yesterday, that was not as is much as expected, I think he is currently euvolemic, he does have some peripheral edema but that is baseline and likely related to hypoalbuminemia Chronic UTIs-will repeat culture although his last 2 have been clear, history of fungal cystitis-dysuria is clear Hypertension-continue with home medications Generalized arthritis-continued home medications Long-term anticoagulant use-maintain current medications BPH-continue with home medications NIDDM-insulin sliding scale-increase sliding scale GERD continue with home medications Hypercholesterolemia continue with home medications Chronic combined congestive heart failure-hold off on further diuretics today Admission status: Patient with recent hospitalization for pneumonia, now progressed to multifocal pneumonia, this to be healthcare acquired pneumonia, medically necessary treatment will span 2 midnights. Inpatient status. DS: Summary Hospital Course Hospital Course: Patient admitted with Acute hypoxia with O2 sat of 90 on 2 L, chest x-ray consistent with multifocal pneumonia which would be healthcare acquired pneumonia, left pleural effusion, leukocytosis, hyponatremia, chronically elevated BNP. Treated with diuresis with Bumex drip, had some increasing output, and I do believe his edema is at his baseline, but his acute hypoxia did improve his rhonchi are improved with IV antibiotics broad-spectrum, at this point he can be discharged to home in improving condition. Medications see list. Follow-up with me in the office next week. He is back to his baseline of 2 L of supplemental oxygen, still hoping over the next month or so that will continue to improve and can become off of supplemental oxygen Status at Discharge Overall status at discharge: patient is not back to baseline Time Spent with Patient Time attestation: Total time spent providing and/or coordinating discharge services: Time spent: greater than 30 minutes Exam Constitutional Vital Signs, click to edit/add: Last Vital Signs Temp 98.7 F 05/06/24 07:37 Pulse 84 05/06/24 07:37 Resp 20 05/06/24 07:37 BP 137/76 05/06/24 07:37 Pulse Ox 90 L 05/06/24 07:37 O2 Del Method Home BIPAP / CPAP 05/06/24 07:37 O2 Flow Rate 2 05/06/24 07:37 Documenting provider has reviewed patient's vital signs: yes Common normals: no apparent distress (Much improved breathing pattern today) Other: Laying reclined in bed HENMT Other: Wearing nasal cannula Lymph Lymphatic: no lymphadenopathy noted Chest Common normals: inspection of chest normal Respiratory Common normals: clear to auscultation bilaterally; abnormal respiratory effort (Conversational dyspnea much improved) Effort & inspection: tachypneic Auscultation: no rhonchi (Essentially completely resolved) Other: Diminished breath sounds. Slightly improved with less crackles in the upper lung mendoza. Cardio Common normals: regular rate, regular rhythm and no murmurs Other: Continues to have diffuse crackles bilaterally. No wheezes. No egophony or dullness to percussion. GI Common normals: negative for Normal to inspection, nondistended, normoactive bowel sounds present (Obese) Other: Gomez Extremity Common normals: normal to inspection (1+ edema, that is probably his baseline) and full ROM; clubbing, cyanosis or edema Other: Continues to have 2+ BLE Neuro Other: No fasciculations Psych Other: Calm, appropriate demeanor DS: Data Data Completed and Pending Labs on day of discharge: Preliminary micro results at discharge 05/03/24 02:19 Lower Respiratory Culture - Preliminary Sputum - Expectorated Sputum 05/03/24 00:30 Blood Culture Result 2 - Preliminary Blood - Right Hand NO GROWTH AT 36-48 HOURS. FINAL TO FOLLOW. 05/03/24 00:25 Blood Culture Result 1 - Preliminary Blood - Left Hand NO GROWTH AT 36-48 HOURS. FINAL TO FOLLOW. Discharge Plan Discharge Disposition: Home, Self-Care Condition: Fair Discharge Medications: New prednisone 10 mg tablet 30 mg PO DAILY Qty: 20 0RF Rx Instructions: 3/day for 3 days, 2/day for 3 days, 1/day for 3 days, 1/2 /day for 4 days levofloxacin 750 mg tablet 750 mg PO DAILY 10 Days Qty: 10 0RF albuterol sulfate 2.5 mg /3 mL (0.083 %) solution for nebulization 2.5 mg inhalation Q4H PRN (Reason: bronchospasm) Qty: 90 11RF Continued mirabegron [Myrbetriq] 25 mg tablet extended release 24 hr 25 mg PO DAILY Qty: 30 11RF tolterodine 2 mg capsule,extended release 24hr 2 mg PO Q24H diclofenac sodium 1 % gel 2 g TOPICAL BID Opzelura 1.5 % cream 1 applic TOPICAL BID PRN (Reason: dermatitis) fluconazole 200 mg tablet 400 mg PO Q24H finasteride 5 mg tablet 5 mg PO DAILY carvedilol 6.25 mg tablet 6.25 mg PO Q12H glipizide 10 mg tablet 10 mg PO BID spironolactone 25 mg tablet 25 mg PO DAILY amlodipine 10 mg tablet 10 mg PO DAILY simvastatin 20 mg tablet 20 mg PO DAILY omeprazole 20 mg capsule,delayed release(DR/EC) 20 mg PO DAILY allopurinol 300 mg tablet 300 mg PO DAILY hydralazine 50 mg tablet 100 mg PO Q8H furosemide 20 mg tablet 20 mg PO Q12H Eliquis 5 mg tablet 5 mg PO Q12H cyanocobalamin (vitamin B-12) [Vitamin B-12] 1,000 mcg tablet 1,000 mcg PO DAILY aspirin [Adult Aspirin Regimen] 81 mg tablet,delayed release (DR/EC) 81 mg PO .weekly calcium citrate-vitamin D3 [Calcium Citrate + D] 315 mg-5 mcg (200 unit) tablet 1 tab PO DAILY multivitamin [Daily Multi-Vitamin] Tablet 1 tab PO DAILY insulin glargine 100 unit/mL (3 mL) insulin pen 26 unit subcut BID acetaminophen 500 mg capsule 1,000 mg PO Q6H PRN (Reason: fever or pain) terazosin 10 mg capsule 10 mg PO BEDTIME Ozempic 1 mg/dose (4 mg/3 mL) pen injector 1 mg subcut QWEEK ferrous sulfate [iron] 325 mg (65 mg iron) tablet 325 mg PO DAILY sildenafil 100 mg tablet 100 mg PO Q24H PRN (Reason: sexual activity) tacrolimus 0.1 % ointment 1 applic TOPICAL Q12H PRN (Reason: skin irritation) Print Language: Luxembourger Patient Instructions: Heart Failure (DC) Forms: Portal Instructions
[2024-05-06] MEDS: LINEZOLID IN DEXTROSE 5% 600 MG/300 ML PIGGYBACK 300 MG IV (08:23)
[2024-05-06] MEDS: PANTOPRAZOLE SODIUM 40 MG VIAL IV (08:31)
[2024-05-06] MEDS: FERROUS SULFATE 325 MG TABLET PO (08:31)
[2024-05-06] MEDS: AMLODIPINE BESYLATE 5 MG TABLET 10 MG PO (08:31)
[2024-05-06] MEDS: ATORVASTATIN CALCIUM 10 MG TABLET PO (08:31)
[2024-05-06] MEDS: OMEPRAZOLE 20 MG CAPSULE.DR PO (08:31)
[2024-05-06] MEDS: CARVEDILOL 6.25 MG TABLET PO (08:31)
[2024-05-06] MEDS: ALLOPURINOL 300 MG TABLET PO (08:32)
[2024-05-06] MEDS: SPIRONOLACTONE 25 MG TABLET PO (08:32)
[2024-05-06] MEDS: APIXABAN 5 MG TABLET PO (08:32)
[2024-05-06] MEDS: OXYBUTYNIN CHLORIDE 5 MG TAB XL PO (08:32)
[2024-05-06] MEDS: FOLIC ACID/VIT B6/VIT B12 TABLET 1 TAB PO (08:32)
[2024-05-06] MEDS: FINASTERIDE 5 MG TABLET PO (08:32)
[2024-05-06] MEDS: INSULIN GLARGINE 300 UNIT/3 ML INSULN.PEN 26 UNIT SQ (08:35)
[2024-05-06] MEDS: GLIPIZIDE 10 MG TABLET PO (08:40)
--- NOTE | 2024-05-09 15:06 | CM.DCFOLLOWU ---
Pt was readmission to hospital and then transferred to higher level of care.
== END 2024-05-06 11:21 | disposition home health service (06) | DRG 193 ==
LOC: ER 05-03 00:54 → MS 05-03 01:28
PROVIDERS: Registered Nurse; Admitting Provider Family Medicine; Emergency Provider Emergency Medicine; PCP Family Medicine; Visit Provider Family Medicine
DX: J18.9 Pneumonia, unspecified organism (principal); I50.43 Acute on chronic combined systolic (congestive) and diastolic (congestive) heart failure; E87.1 Hypo-osmolality and hyponatremia; J44.0 Chronic obstructive pulmonary disease with (acute) lower respiratory infection; J96.11 Chronic respiratory failure with hypoxia; Y95 Nosocomial condition; Z87.440 Personal history of urinary (tract) infections; M19.90 Unspecified osteoarthritis, unspecified site; Z79.01 Long term (current) use of anticoagulants; N40.0 Benign prostatic hyperplasia without lower urinary tract symptoms; E11.9 Type 2 diabetes mellitus without complications; E78.00 Pure hypercholesterolemia, unspecified; I11.0 Hypertensive heart disease with heart failure; K21.9 Gastro-esophageal reflux disease without esophagitis; E66.9 Obesity, unspecified; E88.09 Other disorders of plasma-protein metabolism, not elsewhere classified; Z99.81 Dependence on supplemental oxygen; Z87.01 Personal history of pneumonia (recurrent); I25.2 Old myocardial infarction; I25.10 Atherosclerotic heart disease of native coronary artery without angina pectoris; I48.91 Unspecified atrial fibrillation; Z87.891 Personal history of nicotine dependence; Z79.84 Long term (current) use of oral hypoglycemic drugs; Z79.4 Long term (current) use of insulin; Z79.85 Long-term (current) use of injectable non-insulin antidiabetic drugs; Z95.0 Presence of cardiac pacemaker; Z85.828 Personal history of other malignant neoplasm of skin; Z79.899 Other long term (current) drug therapy; G47.33 Obstructive sleep apnea (adult) (pediatric); Z68.31 Body mass index [BMI] 31.0-31.9, adult
CPT/HCPCS: 36415; 71045; 71046; 80048; 80053; 81001; 82948; 83605; 83735; 83880; 84484; 85007; 85025; 85027; 87040; 87070; 87086; 87205; 87804; 87811; 93005; 94640; 94667; 94668; 94761; 96365; 96375; 97110; 97161; 97165; 97530; 97535; 99285; G0328; J0456; J0696; J1940; J2020; J2543; J2919; P9046

== ENCOUNTER 2024-05-07 16:51 | Inpatient (IN) | payer MEDICARE, OTHER, SELFPAY ==
[2024-05-07] VITALS (23 sets, daily range): BP systolic 130–155; BP diastolic 57–102; PULSE 71–114; RESP 16; TEMP 36.6–36.9; O2SAT 85–97; BMI 30.1
--- NOTE | 2024-05-07 16:55 | ECG_ITS ---
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
--- OUTSIDE RECORDS SUMMARY | 2024-05-07 16:55 | XMS_ITS | CCD ---
Author Organization [facility] Care Team Providers Care Mannequin Sander And Finisher Name Role Phone Andrea Espinoza Unavailable Unavailable [...] Provider Lori Medina MD Primary Care Provider [phone] BLANCA ALONSO Attending Unavailable BLANCA ALONSO [...] Enalapril; 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: [enalapril] Drug Allergy 02-10-20 Cough [facility] (18 sources) Metoprolol; 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: [metoprolol] Drug Allergy 10-12-19 23 Cough, Unknown -[facility] y [address] DO Work Phone: (4 sources) Fosinopril; 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: [Monopril] Drug Allergy 03-16-20 14 [facility] (1 source) Metoprolol Drug Allergy 05-16-19 15 [facility] (1 source) strawberry allergenic extract Drug Allergy 05-16-19 15 [facility] (1 source) tomato allergenic extract Drug Allergy 05-16-19 15 [facility] (6 sources) Fosinopril; 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: [FOSINOPRIL] Drug Allergy 10-12-19 23 Unknown [facility] Work Phone: (3 sources) hydroCHLOROthiazide / Metoprolol; 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: [hydrochlorothiazide-m etoprolol] Drug Allergy [facility] (3 sources) [place]; 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: [Strawberries] Food allergy (disorder) [facility] (3 sources) Tomatoes; 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: [Tomatoes] Food allergy (disorder) [facility] Medications Current Medications Medication Drug [...] Start: 03-20-2020 take [address] 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 [address] 2024 11:00 AM EDT With: Where: [facility] You Need to Schedule the Following Appointments Follow Up with Mica Car MD, URL, URO When: Where: Medications What How Much When Instructions New finasteride (finasteride 5 mg Tab) 1 Tablets By Mouth Every day Refills: 11 Pickup at [facility] #[id number] Unchanged terazosin (terazosin 10 mg Cap) 1 [...] Duration: 3 (more content not included)... Normal [facility] Urology Office/Clinic Noteon 04-26-2024 Urology Office/Clinic [...] unspecified) Pt states he was admitted at [facility] x 4 days due to PNA, Gomez removed and discharged 04/08/24. Pt states he presented back to [facility] ER due to UR. Gomez placed, [...] scan, ~ 80 g) S/p Rezum by [facility] 02/14/24 - 9 treatments, Rt side [...] further bleeding since then. Pt went to [facility] ER 02/26/24 d/t persistent dysuria. Admitted for [...] ATB course -See #3 5. 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 Elevated risk [...] DM (diabetes (more content not included)... Normal [facility] Comment on above: Result Comment: Elec [...] AM EST With: Where: [facility] [address] [facility] [address] [place] [address] [place] [address]- Wednesday 1:00 PM EST With: Mica Car MD Where: [facility] [address] [address]- 2024 11:00 AM EDT With: Where: [facility] You Need to Schedule the Following Appointments Follow Up with Mica Car MD, URL, URO When: In 1 month Comments: w/PVR Where: Medications What How Much When Instructions New levofloxacin (Levaquin 500 mg Tab) 1 Tablets By Mouth Every 24 hours Duration: 3 Weeks Pickup at [facility] #[id number] Unchanged acetaminophen (Tylenol Extra Strength 500 mg [...] 3 time (more content not included)... Normal [facility] Urology Office/Clinic Noteon 04-12-2024 Urology Office/Clinic Note Urology Office/Clinic Note Chief Complaint 1 mth f/u HPI Staff 78yr old male pt here for 1mo f/u with PVR. S/p Cystoscopy, TRUS 01/27/2024, Rezume done on 02/14/24 w/ Dr. Car. Previous Dx: uti, BPH with urinary obstruction, anticoagulated *terazosin 10 mg qd, sildenafil 100mg PRN pt has Gomez. Pt states he was in [facility] for 4 days for pneumonia, Wednesday [...] has Gomez. Pt states he was in [facility] for 4 days for pneumonia, Wednesday [...] further bleeding since then. Pt went to [facility] 02/26/24 d/t persistent dysuria. Admitted for [...] be stoppe (more content not included)... Normal [facility] Comment on above: Result Comment: Elec tronically Signed By: Mica Car MD\.br\Date and Time Signed: 04/12/24 12:07 EST\.br\Electronically Co-Signed By: Kavita Mukherjee\.br\Date and Time Co-Signed: 04/12/24 11:48 EST Urine Cultureon 03-28-2024 Bacteria identified Cx Nom (U) No Growth 2 Days PERFORMED BY: [place] [address] PATHOLOGIST HOUSING COORDINATOR OSCAR ESCOBAR M.D. Normal [facility] Comment on above: Performed By: #### C UU #### [address] C Urineon 03-26-2024 Bacteria identified Cx [...] Locations R1: This test was performed at: [facility], [address] [place] [address], [id number]- , [place], [facility] Comment on above: Performed By: #### 2 [id number] #### [facility] [address] [place] [address] Main OR Preoperative Recordo n 03-20-2024 Main OR Preoperative Record Main OR Preoperative Record Holding Area Document Type FTURO Summary Primary Physician: Mica Car MD Finalized Date/Time: 03/20/24 16:29:34 Pt. Name: LEIGHTON ARCINIEGA /Sex: 1945 Male Med Rec #: [id number] Physician: Mica Car MD Financial #: [id number] Pt. Type: O Room/Bed: / Admit/Disch: 12/27/23 [...] Complaints of Pain: No Skin Integrity Intact, [place], Warm, & Dry Vitals - EU Blood Pressure 122/75 Pulse 81 bpm Respirations 18 br/min SPO2 96 % Additional None RN Reviewed Yes Specimens Collected Last Modified By: Ankita Gray RN 12/27/23 11:25:48 Finalized By: MICHELLE Marks RN, Ruthann Document Signatures Signed By: Latha David LPN 12/27/23 11:01 Latha David LPN 12/27/23 11:02 Kendrick GODINEZ, Dalia AMRTINEZ 03/20/24 16:29 Normal [facility] Urine Cultureon 03-11-2024 Bacteria identified Cx Nom (U) ORGANISM: Prudence glabrata (O:CANGLA) [place] Count 75,000 PERFORMED BY: [facility] [place] [address] [id number] PATHOLOGIST HOUSING COORDINATOR OSCAR ESCOBAR M.D. Normal [facility] Comment on above: Performed By: #### C UU #### [facility] [address] [place], [place] [id number] [facility] Urine cultureOrdered By: Derek Vasquez on 03-11-2024 Bacteria identified Cx Nom (U) Abnormal [facility] Urology Office/Clinic Noteon 03-02-2024 Urology Office/Clinic [...] that he had 3 day stay at [facility] on 02/26/24 for severe UTI & [...] further bleeding since then. Pt went to [facility] ER 02/26/24 d/t persistent dysuria. Admitted for [...] 124ml Told him to continue Alfuzosin. Ordered: [id number] Measure Post Void residual urine and/or bladder [...] Urnls Dip Stick Auto w/o Microscopy POC 72567 3. Anticoagulated (Z79.01: correction (current) use of anticoagulants) on Eliquis. Follow-up [...] Hypercholesteremia Inco (more content not included)... Normal [facility] Comment on above: Result Comment: Elec tronically Signed By: NATA TA PA-C.br\Date and Time Signed: 03/02/24 17:13 EST\.br\Electronically Co-Signed By: Martir Sheabr\Date and Time Co-Signed: 03/02/24 13:38 EST ECG 12 Leadon 03-01-2024 AV paced rhythm [facility] Work Phone: URINE CULTUREon 02-19-2024 Bacteria identified Cx Nom (U) CULTURE RESULTS 10-50,000 ORGANISMS/mL NORMAL UROGENITAL ELIN Normal [facility] Comment on above: Performed By: #### 6 30-4 #### [facility] ([id number]) [address] [place] [address], [address] [place] [address] URN MACROSCOPIC NURon 2023 BILIRUBIN LETHA Negative Normal NEG [facility] Comment on above: Performed By: #### N UM #### [facility] ([id number]) [address] [place] [address] BLOOD/HGB LETHA Large Abnormal NEG [facility] Comment on above: Performed By: #### N UM #### [facility] ([id number]) [address] [place] [address] GLUCOSE LETHA >=1000 Abnormal NEG [facility] Comment on above: Performed By: #### N UM #### [facility] ([id number]) [address] [place] [address] KETONES LETHA Negative Normal NEG [facility] Comment on above: Performed By: #### N UM #### [facility] ([id number]) [address] [place] [address] 00854 LEUKOCYTE ESTERASE LETHA Small Abnormal NEG [facility] Comment on above: Performed By: #### N UM #### [facility] ([id number]) [address] [place] [address] NITRITE LETHA Negative Normal NEG [facility] Comment on above: Performed By: #### N UM #### [facility] ([id number]) [address] [place] [address] PH LETHA 6.0 Normal 5.0-8.5 [facility] Comment on above: Performed By: #### N UM #### [facility] ([id number]) [address] [place] [address] PROTEIN LETHA 100 mg/dL Abnormal NEG [facility] Comment on above: Performed By: #### N UM #### [facility] ([id number]) [address] [place] [address] SPECIFIC GRAVITY LEHTA 1.015 Normal 1.003-1.035 [facility] Comment on above: Performed By: #### N UM #### [facility] ([id number]) [address] [place] [address] UROBILINOGEN LETHA 0.2 eu/dL Normal <1.1 [facility] Comment on above: Performed By: #### N UM #### [facility] ([id number]) [address] [place] [address] Inpatient Patient Summaryon 02-14-2024 Inpatient Patient Summary Inpatient Patient Summary [address] [address] Clinical Summary Person Information Name: LEIGHTON ARCINIEGA Age: 78 Years : 1945 Sex: Male PCP: Lori Medina MD Marital Status: Race: White Ethnicity: Non- or Language: Swazi Visit Id: Visit Reason: BPH WITH URINARY OBSTRUCTION Speciality: Acuity: Enc Type: Outpatient Med Service: Surgery Arrival: 02/14/2024 09:35:51 Discharge: Dispo Type: Address: [address] [place] [address] [address] [place] [phone] Provider Notes: Diagnosis: BPH with obstruction/lower urinary [...] day as needed for pain. acetaminophen-hydroc odone ([place] 325 mg-5 mg oral tablet) 1 [...] Information: EU - Rezum Discharge Instructions (CUSTOM) [facility] Main OR Intraoperative Recor don 02-14-2024 Main OR Intraoperative Record Main OR Intraoperative Record IntraOp Document Type FTURO Summary Primary Physician: Mica Car MD Finalized Date/Time: 02/14/24 12:08:58 Pt. Name: LEIGHTON ARCINIEGA/Sex: 1945 Male Med Rec #: [id number] Physician: Mica Car MD Financial #: [id number] Pt. Type: O Room/Bed: / Admit/Disch: 02/14/24 [...] Kimberly A Role Performed Surgeon - Primary Wastewater Treatment Plant Operator - Primary Scrub - Primary Time [...] Corral 02/14/24 12:08 Jocy Corral 02/14/24 12:08 [facility] Main OR Preoperative Recordo n 02-14-2024 Main OR Preoperative Record Main OR Preoperative Record Holding Area Document Type FTURO Summary Primary Physician: Mica Car MD Finalized Date/Time: 02/14/24 11:48:27 Pt. Name: LEIGHTON ARCINIEGA /Sex: 1945 Male Med Rec #: [id number] Physician: Mica Car MD Financial #: [id number] Pt. Type: O Room/Bed: / Admit/Disch: 02/14/24 [...] Complaints of Pain: No Skin Integrity Intact, [place], Warm, & Dry Vitals - EU Blood Pressure 152/74 Pulse 61 bpm Respirations 18 br/min SPO2 97 % Additional None RN Reviewed Yes Specimens Collected Last Modified By: Jocy Corral 02/14/24 11:48:23 Finalized By: Jocy Corral Document Signatures Signed By: Latha David LPN 02/14/24 11:05 Jocy Corral 02/14/24 11:48 Jocy Corral 02/14/24 11:48 [facility] Operative Reporton Operative Report Operative Report [...] clearer. Follow-up in 1 month PVR.. Normal [facility] Comment on above: Result Comment: Elec tronically Signed By: Josep SANDHU, Mica Johns\.br\Date and Time Signed: 02/14/24 12:03 EST Outpatient Surgery Discharge Instructionon 02-14-2024 Outpatient Surgery Discharge Instruction Outpatient Surgery Discharge Instruction [place] [id number] Patient Discharge Instructions PERSON INFORMATION Name: LEIGHTON [...] there (more content not included)... Normal [facility] Ambulatory Visit Summaryon 1 04-01-2023 Ambulatory [...] Strength 500 mg oral tablet) acetaminophen-hydroc odone ([place] 325 mg-5 mg oral tablet) allopurinol [...] if questions or concerns Unchanged acetaminophen-hydroc odone ([place] 325 mg-5 mg oral tablet) 1 [...] omeprazole (omep (more content not included)... Normal [facility] Urology Office/Clinic Noteon 01-31-2024 Urology Office/Clinic Note Urology Office/Clinic Note Chief Complaint [facility] ER follow up HPI Staff 78 year old male patient presents today for a [facility] ER follow up 01/23/24. Pt has [...] with voice recognition artificial intelligence software, specifically [employer], [employer] and or [employer]. Substitutions may have occurred due to the [...] in medic (more content not included)... Normal [facility] Comment on above: Result Comment: Elec tronically Signed By: MICHAEL Sr APRN, Anna Herrera\.br\Date and Time Signed: 01/31/24 16:26 EST URINE CULTUREon 01-24-2024 Bacteria identified Cx Nom (U) CULTURE RESULTS NO GROWTH AT <1000 CFU/mL Normal [facility] Comment on above: Performed By: #### 6 30-4 #### [facility] ([id number]) [address] [place] [address], [address] [place] [address] URN MACROSCOPIC NURon 2023 BILIRUBIN LETHA Negative Normal NEG [facility] Comment on above: Performed By: #### N UM #### [facility] ([id number]) [address] [place] [address] BLOOD/HGB LETHA Trace Abnormal NEG [facility] Comment on above: Performed By: #### N UM #### [facility] ([id number]) [address] [place] [address] GLUCOSE LETHA >=1000 Abnormal NEG [facility] Comment on above: Performed By: #### N UM #### [facility] ([id number]) [address] [place] [address] KETONES LETHA Negative Normal NEG [facility] Comment on above: Performed By: #### N UM #### [facility] ([id number]) [address] [place] [address]397 LEUKOCYTE ESTERASE LETHA Large Abnormal NEG [facility] Comment on above: Performed By: #### N UM #### [facility] ([id number]) [address] [place] [address] NITRITE LETHA Negative Normal NEG [facility] Comment on above: Performed By: #### N UM #### [facility] ([id number]) [address] [place] [address] PH LETHA 6.0 Normal 5.0-8.5 [facility] Comment on above: Performed By: #### N UM #### [facility] ([id number]) [address] [place] [address] PROTEIN LETHA 100 mg/dL Abnormal NEG [facility] Comment on above: Performed By: #### N UM #### [facility] ([id number]) [address] [place] [address] SPECIFIC GRAVITY LETHA 1.015 Normal 1.003-1.035 [facility] Comment on above: Performed By: #### N UM #### [facility] ([id number]) [address] [place] [address] [place] [address] UROBILINOGEN LETHA 0.2 eu/dL Normal <1.1 [facility] Comment on above: Performed By: #### N UM #### [facility] ([id number]) [address] [place] [address] Inpatient Patient Summaryon 12-27-2023 Inpatient Patient Summary Inpatient Patient Summary [address] [address] Clinical Summary Person Information Name: LEIGHTON ARCINIEGA Age: 78 Years : 1945 Sex: Male PCP: Lori Medina MD Marital Status: Race: White Ethnicity: Non- or Language: Swazi Visit Id: Visit Reason: BPH WITH URINARY OBSTRUCTION Speciality: Acuity: Enc Type: Outpatient Med Service: Surgery Arrival: 12/27/2023 09:33:05 Discharge: Dispo Type: Address: [facility] LINDEN TONEY [address] [facility] [id number] Provider Notes: Diagnosis: Anticoagulated; Other obstructive and [...] day as needed for pain. acetaminophen-hydroc odone ([place] 325 mg-5 mg oral tablet) 1 [...] Car MD Consulting Physician: Referring Physician: Mica aCr MD Follow up: With: Address: When: Mica Car Comments: Office to schedule Rezu Type Location Start Finish State NCV Pacemaker (FT) FT.CARDIO 06/01/2024 11:00 AM 06/01/2024 11:15 AM Confirmed Patient Education Information: EU - Cystoscopy Discharge Instructions (CUSTOM) [facility] Main OR Intraoperative Recor don 12-27-2023 Main OR Intraoperative Record Main OR Intraoperative Record IntraOp Document Type FTURO Summary Primary Physician: Mica Car MD Finalized Date/Time: 12/27/23 11:42:38 Pt. Name: SUZE LEIGHTONMARTÍNEZ [place]/Sex: 1945 Male Med Rec #: [id number] Physician: Mica Car MD Financial #: [id number] Pt. Type: O Room/Bed: / Admit/Disch: 12/27/23 [...] Micky Vargas Role Performed Surgeon - Primary Wastewater Treatment Plant Operator - Primary Scrub - Primary Time [...] By: Ankita Gray RN 12/27/23 11:42 Normal [facility] Operative Reporton Operative Report Operative Report Patient: LEIGHTON ARCINIEGA Age: 78 years Sex: Male : 1945 Associated Diagnoses: None Author: Mica Car MD Procedure Operative Information Details: Date/ Time: 12/27/2023 12:10:00. Pre-Op Dx: BPH w/ LUTS - N40.1. Post-Op Dx: Feeling of incomplete bladder emptying (JGK62-HQ R39.14, Working, Medical), Anticoagulated (MXK38-MN Z79.01, Discharge, Medical), Same. Anesthesia Type: Local. [...] Valium prior to procedure. 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 -Will need blood thinners held prior to procedure. Elevated risk of bleeding discussed. -Patient did better on terazosin. Will DC tamsulosin and restart terazosin 10 mg daily. [facility] [place] Normal [facility] Comment on above: Result Comment: Elec tronically Signed By: Josep SANDHU, Mica Johns\.br\Date and Time Signed: 12/27/23 12:14 EDT Outpatient Surgery Discharge Instructionon 12-27-2023 Outpatient Surgery Discharge Instruction Outpatient Surgery Discharge Instruction [place] [id number] Patient Discharge Instructions PERSON INFORMATION Name: LEIGHTON [...] to serve you. Thank you for choosing [facility] Normal [facility] Ambulatory Visit Summaryon 0 11-12-2023 Ambulatory [...] Strength 500 mg oral tablet) acetaminophen-hydroc odone ([place] 325 mg-5 mg oral tablet) allopurinol [...] if questions or concerns Unchanged acetaminophen-hydroc odone ([place] 325 mg-5 mg oral tablet) 1 [...] Mouth E (more content not included)... Normal [facility] Urology Office/Clinic Noteon 11-12-2023 Urology Office/Clinic [...] antigen) Seborr (more content not included)... Normal [facility] Comment on above: Result Comment: Elec tronically Signed By: Mica Car MD\.br\Date and Time Signed: 11/12/23 16:43 EDT\.br\Electronically Co-Signed By: Maria Luz Mejia\.br\Date and Time Co-Signed: 11/12/23 16:14 EDT PTH Intacton 10-15-2023 Parathyrin.intact [Mass/Vol] 49 pg/mL Invalid Interpretation Code 15-65 [facility] Comment on above: Result Comment: Perf ormed at: [facility] [address] [id number] PhD Carlos Singh Performed By: #### 1 [id number] #### [facility] [address] [place] [address] ED Clinical Summaryon 2023 ED Clinical Summary ED Clinical Summary [address] [address] ED Clinical Summary Person Information Name: LEIGHTON ARCINIEGA [facility] Age: 77 Years : 1945 Sex: Male Language: Swazi PCP: Lori Medina MD Marital Status: Visit [...] 10/14/2023 13:18:55 10/14/2023 13:18:55 ADDRESS: Danie TONEY [address] [place] [phone] PHYS DOC NOTES: MEDICAL INFORMATION: Prescriptions Given: New Medications [id number], [address] [place], [place] [id number], [phone] acetaminophen-hydroc odone ([place] 325 mg-5 mg oral tablet) 1 [...] EDUCATION INFORMATION: Instructions: Acute Knee Pain, Adult, Chpb-sg-Asrt Follow up: With: Address: When: Andrea [address] [place] [address] Business (1) In 3 days 10/17/2023 With: Address: When: Call to schedule a follow-up appointment with your orthopedic surgeon. Use the [place] as needed for pain along with icing. . If you are unable to get in with your orthopedic surgeon, I have provided a referral for another one. In 3 days 10/17/2023 With: Address: When: Lori Medina [facility] [place] [address] Business (1) In 3 days DIAGNOSIS: Posterior left knee pain Normal [facility] ED Note-Physicianon 10-14-19 ED Note-Physician ED [...] surgeon in [facility] for arthritis in which he will follow-up for further management of care. Patient is on Eliquis therefore I cannot prescribe him naproxen or any form of NSAID. Due to his age I did not feel a muscle relaxer was appropriate either. Based on this he is being prescribed 4 doses of [place]. He was educated on appropriate use [...] q4hr for pain, 4 tab(s), Refill(s) 0, [facility] #[id number], 177, cm, 10/14/23 11:44:00 EDT, Height/Length Dosing, 104.8, kg, 10/14/23 11:44:00 EDT, Weight Dosing Disposition Plan Patient Discharge Condition stable Discharge Disposition home Discharge Prescription List Prescriptions [place] 325 mg-5 mg oral tablet, 1 tab(s), Oral, q4hr, PRN Follow-up With When Contact Information Andrea Espana In 3 days 10/17/2023 EDT [address] [place] [address]- Business (1) Additional Instructions: Call to schedule a follow-up appointment with your orthopedic surgeon. Use the [place] as needed for pain along with icing. . If you are unable to get in with your orthopedic surgeon, I have provided a referral for another one. In 3 days 10/17/2023 EDT Additional Instructions: Lori Medina In 3 days [address] [facility] [place] [address]- Business (1) Additional Instructions: Patient Education Acute Knee Pain, Adult, Bwet-pt-Xsxj Attestation Patient seen and evaluated by the physician clinic office assistant. Attending physician was present in the emergency department and supervised care. This visit was performed by both the physician and an APC. I performed all aspects of the MDM as documented. This report was transcribed using voice recognition software. Every effort was made to ensure accuracy, however, inadvertently computerized concrete paving supervisor mistakes may be present. Appropriate healthcare PPE was used in evaluating this patient. The patient was placed in a mask. The healthcare provider was wearing mask, gloves, and utiliz (more content not included)... Normal [facility] Comment on above: Result Comment: Elec tronically Signed By: Vini Quinteros DO\.br\Date and Time Signed: 10/14/23 16:09 EDT\.br\Electronically Co-Signed By: Nayla William PA-C\.br\Date and Time Co-Signed: 10/14/23 13:46 EDT ED Patient Summaryon 024 ED Patient Summary ED Patient Summary [facility] [address] [place], [place] [address] Patient Discharge Instructions Person Information Name: LEIGHTON ARCINIEGA Age: 77 Years Arrival Date: 10/14/2023 11:36:13 Discharge Diagnosis: Posterior left knee pain Primary Care Physician: Lori Medina MD Provider Information Primary Provider: Vini Quinteros DO Advanced Director Call:Nayla William PA-C The exam and treatment you received in the Emergency Department were for an urgent problem and are not intended as complete care. It is important that you follow up with a doctor, nurse practitioner, or physician?s clinic office assistant for ongoing care. If your symptoms [...] Follow-up Instructions: With: Address: When: Andrea Espana [address] [place] [id number] Business (1) In 3 days 10/17/2023 With: Address: When: Call to schedule a follow-up appointment with your orthopedic surgeon. Use the [place] as needed for pain along with icing. . If you are unable to get in with your orthopedic surgeon, I have provided a referral for another one. In 3 days 10/17/2023 With: Address: When: Lori Medina [address] [facility] [place] [address] Business (1) In 3 days In the event that this physician does not participate in your insurance network, please consult with your insurance company to find a nearby participating provider. Patient Education Materials: Acute Knee Pain, Adult, Fljw-mo-Scba A MESSAGE TO ALL PATIENTS REGARDING OPIOIDS PRESCRIPTION OPIOIDS: WHAT YOU NEED TO KNOW Prescription opioids can be used to help relieve pxfofocr-sr-onecyh pain and are often prescribed following a [...] or yo (more content not included)... Normal [facility] XR Knee Complete 4+ Views Le [...] mGy = na DAP = na Normal [facility] Screenson 06-17-2023 Screens [id number] #1.00TIFF Normal [facility] Screens [id number] #1.00TIFF Normal [facility] Ambulatory Visit Summaryon 0 06-16-2023 Ambulatory [...] SANDHU, Mica Johns Where: [facility] Patient Educationon 06-16-19 24 Patient Education Urology [...] these instructions at home: Medicines ? Take gdlp-ghl-qatekmm and prescription medicines only as told by [...] include cig (more content not included)... Normal [facility] Urology Office/Clinic Noteon 06-16-2023 Urology Office/Clinic [...] Information Josep SANDHU, Mica Johns, URL, U[facility] [address] [place] [phone] Additional Instructions: Has f/u already scheduled 11/12/23 [...] Co-Signed: 06/16/23 10:48 EDT Screenson 05-10-2023 Screens [id number] #1.00TIFF [facility] Screens [id number] #1.00TIFF [facility] Ambulatory Visit Summaryon 0 05-07-2023 Ambulatory Visit [...] NATA TA PA-C Where: [facility] Normal [address] [place] [address]- \.br\ You Need to Schedule the Following Appointments\.br\ Follow Up with NATA TA PA-C, URL When: \.br\ Comments:\.br\ 1 mos w/ PVR \.br\ Where:\.br\ [address]br\ [place] [address]\.br\ [phone]\.br\ Medications\.br\ What How Much When Instructions\.br\ New tadalafil (tadalafil 10 mg Tab) 1 Tablets By Mouth As Directed as needed for for erectile dysfunction Refills: 3 Take one tab 1 hour prior to sexual activity. Do not exceed 20mg in 48hrs. [id number]\.br\ New tamsulosin (tamsulosin 0.4 mg Cap) 1 Capsules By Mouth Once a day (in the evening) Refills: 11 [facility]up at [id number]\.br\ Unchanged acetaminophen (Tylenol Extra Strength 500 mg [...] or concerns \.br\ Pharmacy Information\.br\ [id number]: [address] [place], [place] [id number] [phone]\.br\ Allergies\.br\ Monopril (Dry cough)\.br\ Strawberries (rash)\.br\ Tomatoes [...] Symptoms of this condition include:\.br\ ? \ [facility] Ambulatory Visit Summary LEIGHTON ARCINIEGA :1945 [...] med) Where: [address], [place] [phone] Medications What How Much When Instructions Unchanged [...] Every da (more content not included)... Normal [facility] Patient Educationon 05-07-19 Patient Education Urology [...] these instructions at home: Medicines ? Take gzee-eui-cjyaaim and prescription medicines only as told by [...] include cig (more content not included)... Normal [facility] Urology Office/Clinic Noteon 05-07-2023 Urology Office/Clinic [...] Information Josep SANDHU, Mica Johns, URL, [facility] [address], [place] [phone] Additional Instructions: 1 mos w/ PVR Patient Education Erectile Dysfunction Kriss Heredia, personally scribed for Dr. Car on 05/07/2023 15:06:02. . Documentation recorded by the scribe, Kriss Frankel, accurately reflects the services(s) I performed and decisions made by me. Authenticated by Dr. Car on 05/07/2023 16:05:51. Problem List/Past Medical History Ongoing Anticoagulated Arthritis Aspirin marshall (more content not included)... Normal [facility] Comment on above: Result Comment: Elec [...] Weight Tips; Status:Complete - Retrospective Authorization; Done: [id number] Some eating tips that can help you lose weight.; Status:Complete - Retrospective Authorization; Done: [id number] Essential hypertension Renew: Carvedilol 6.25 MG Oral Tablet; Take 1 tablet twice daily Hyperlipidemia Renew: Simvastatin 20 MG Oral Tablet; TAKE 0.5 TABLET Bedtime SocHx: Former smoker Tobacco Use Screening; Status:Complete; Done: [id number] Patient Instructions Please bring all medicines, vitamins, [...] education sheet. 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 Vitals Vital Signs Recorded: [id number] 10: (more content not included)... Normal [facility] Tobacco Screening.on 023 Adult depression screening assessment No [facility] 600 DO Work Phone: Fall risk assessment b) One or more falls in the last year [facility] 600 DO Work Phone: Tobacco use status CPHS b) No [facility] 600 DO Work Phone: CBC AUTO DIFFon 05-28-2022 BASO # 0.0 103/ul Normal 0.0-0.1 [facility] Comment on above: Performed By: #### C BC #### [facility] [address] [place] [address] Dr. Susie Hale Basophils/100 WBC (Bld) 0.5 % Normal 0.2-2.0 [facility] Comment on above: Performed By: #### C BC #### [facility] [address] [place] [address] Dr. Susie Hale EO # 0.1 103/ul Normal 0.0-0.7 [facility] Comment on above: Performed By: #### C BC #### [facility] [address] [place] [address] Dr. Susie Hale Eosinophils/100 WBC (Bld) 1.8 % Normal 0.9-7.0 [facility] Comment on above: Performed By: #### C BC #### [facility] [address] [place] [address] Dr. Susie Hale Erythrocyte distribution width (RBC) [Ratio] 13.0 % Normal 11.0-15.0 [facility] Comment on above: Performed By: #### C BC #### [facility] [address] [place] [address] Dr. Susie Hale Hematocrit (Bld) [Volume fraction] 35.0 % Critically low 42.0-54.0 [facility] Comment on above: Performed By: #### C BC #### [facility] [address] [address] [address] Susie Hale Hemoglobin (Bld) [Mass/Vol] 12.2 g/dL Critically low 14.0-18.0 [facility] Comment on above: Performed By: #### C BC #### [facility] [address] [address] [address] Susie Hale IG # 0.05 10e3/ul Critically high 0.00-0.03 [facility] Comment on above: Performed By: #### C BC #### [facility] [address] [address] [address] Susie Hale IG % 0.8 % Critically high 0.0-0.5 [facility] Comment on above: Performed By: #### C BC #### [facility] [address] [address] [address] Susie Hale LYMPH # 1.9 103/ul Normal 1.2-3.8 [facility] Comment on above: Performed By: #### C BC #### [facility] [address] [address] [address] Susie Hale Lymphocytes/100 WBC (Bld) 28.7 % Normal 20.5-60.0 [facility] Comment on above: Performed By: #### C BC #### [facility] [address] [place] [address] Dr. Susie Hale MANUAL DIFF REQ NO Normal [facility] Comment on above: Performed By: #### C BC #### [facility] [address] [address] [address] Susie Hale MCH (RBC) [Entitic mass] 32.1 pg Normal 25.9-34.0 [facility] Comment on above: Performed By: #### C BC #### [facility] [address] [address] [address] Susie Hale MCHC (RBC) [Mass/Vol] 34.9 g/dL Normal 29.9-35.2 [facility] Comment on above: Performed By: #### C BC #### [facility] [address] [address] [address] Susie Hale MCV (RBC) [Entitic vol] 92.1 fL Normal 80.0-94.0 [facility] Comment on above: Performed By: #### C BC #### [facility] [address] [place] [address] Dr. Susie Hale MONO # 0.7 103/ul Normal 0.3-0.8 [facility] Comment on above: Performed By: #### C BC #### [facility] [address] [place] [address] Dr. Susie Hale Monocytes/100 WBC (Bld) 10.9 % Normal 1.7-12.0 [facility] Comment on above: Performed By: #### C BC #### [facility] [address] [place] [address] Dr. Susie Hale NEUT # 3.7 103/ul Normal 1.4-6.5 [facility] Comment on above: Performed By: #### C BC #### [facility] [address] [place] [address] Dr. Susie Hale Neutrophils/100 WBC (Bld) 57.3 % Normal 43.0-75.0 [facility] Comment on above: Performed By: #### C BC #### [facility] [address] [place] [address] Dr. Susie Hale Platelet mean volume (Bld) [Entitic vol] 8.5 fL Critically low 9.5-13.5 [facility] Comment on above: Performed By: #### C BC #### [facility] [address] [place] [address] Dr. Susie Hale PLT 238 103/ul Normal 150-450 [facility] Comment on above: Performed By: #### C BC #### [facility] [address] [place], [place] [id number] Dr. Susie Hale RBC 3.80 106/ul Critically low 4.70-6.[address] [facility] Comment on above: Performed By: #### C BC #### [facility] [address] [place], [place] [id number] Dr. Susie Hale WBC 6.5 103/ul Normal 4.0-11.0 [facility] Comment on above: Performed By: #### C BC #### [facility] [address] STROKE HEAD WOon [...] MAILE CANO Date: 2022-05-28 18:17 Normal [facility] PROF 14(COMP METB)on 023 Albumin [Mass/Vol] 3.5 g/dL Normal 3.4-5.0 [facility] Comment on above: Performed By: #### C MP #### [facility] [address] [place], [place] [address] Dr. Susie Hale Albumin/Globulin [Mass ratio] 1.1 {ratio} Normal [facility] Comment on above: Performed By: #### C MP #### [facility] [address] [place], [place] [address] Dr. Susie Hale ALP [Catalytic activity/Vol] 87 U/L Normal 46-116 [facility] Comment on above: Performed By: #### C MP #### [facility] [address] [address] [address] Susie Hale ALT [Catalytic activity/Vol] 16 U/L Normal 16-63 [facility] Comment on above: Performed By: #### C MP #### [facility] [address] [address] [address] Susie Hale Anion gap [Moles/Vol] 10.0 mmol/L Normal [facility] Comment on above: Performed By: #### C MP #### [facility] [address] [address] [address] Susie Hale AST [Catalytic activity/Vol] 14 U/L Critically low 15-37 [facility] Comment on above: Performed By: #### C MP #### [facility] [address] [place] [address] Dr. Susie Hale Bilirubin [Mass/Vol] 0.2 mg/dL Normal 0.2-1.0 [facility] Comment on above: Performed By: #### C MP #### [facility] [address] [address] [address] Susie Hale Calcium [Mass/Vol] 8.9 mg/dL Normal 8.5-10.1 [facility] Comment on above: Performed By: #### C MP #### [facility] [address] [address] [address] Susie Hale Chloride [Moles/Vol] 105 mmol/L Normal 98-107 [facility] Comment on above: Performed By: #### C MP #### [facility] [address] [address] [address] Susie Hale CO2 [Moles/Vol] 25.7 mmol/L Normal 21.0-32.0 [facility] Comment on above: Performed By: #### C MP #### [facility] [address] [address] [address] Susie Hale Creatinine [Mass/Vol] 1.87 mg/dL Critically high 0.70-1.30 [facility] Comment on above: Performed By: #### C MP #### [facility] [address] [address] [address] Susie Hale EGFR-AF MICRONESIAN 43 mL/min/1.73m2 Critically low >=60 [facility] Comment on above: Performed By: #### C MP #### [facility] [address] [address] [address] Susie Hale EGFR-NON AF MICRONESIAN 35 mL/min/1.73m2 Critically low >=60 [facility] Comment on above: Performed By: #### C MP #### [facility] [address] [address] [address] Susie Hale Globulin (S) [Mass/Vol] 3.2 g/dL Normal [facility] Comment on above: Performed By: #### C MP #### [facility] [address] [address] [address] Susie Hale Glucose [Mass/Vol] 256 mg/dL Critically high 74-106 [facility] Comment on above: Performed By: #### C MP #### [facility] [address] [address] [address] Susie Hale Potassium [Moles/Vol] 3.7 mmol/L Normal 3.5-5.1 [facility] Comment on above: Performed By: #### C MP #### [facility] [address] [address] [address] Susie Hale Protein [Mass/Vol] 6.7 g/dL Normal 6.4-8.2 [facility] Comment on above: Performed By: #### C MP #### [facility] [address] [address] [address] Susie Hale Sodium [Moles/Vol] 137 mmol/L Normal 136-145 [facility] Comment on above: Performed By: #### C MP #### [facility] [address] [address] [address] Susie Hale Urea nitrogen [Mass/Vol] 22.0 mg/dL Critically high 7.0-18.0 [facility] Comment on above: Performed By: #### C MP #### [facility] [address] [place], [place] [address] Dr. Susie Hale Urea nitrogen/Creatinin e [Mass ratio] 11.8 mg/mg Normal [facility] Comment on above: Performed By: #### C SARA #### [facility] [address] [place], [place] [address] Dr. Susie Hale Office Visit (Cardiology)on 12-16-2021 [...] in adult Healthy Weight Tips; Status:Complete; Done: [id number] Some eating tips that can help you lose weight.; Status:Complete; Done: [id number] Essential hypertension Renew: Carvedilol 6.25 MG Oral Tablet; Take 1 tablet twice daily Hyperlipidemia Renew: Simvastatin 20 MG Oral Tablet; TAKE 0.5 TABLET Bedtime SocHx: Former smoker Tobacco Use Screening; Status:Complete; Done: [id number] Unlinked Stop: Aspirin 325 MG Oral Tablet [...] your visit. Device check as directed per [facility] protocol Follow up in 6-9 months Chief [...] skin r (more content not included)... Normal [employer] Tobacco Screening.on 022 Adult depression screening assessment No [facility] Work Phone: Fall risk assessment a) No falls within the last year [facility] 600 DO Work Phone: Tobacco use status CP b) [facility] Work Phone: Tobacco Screening.on 021 Fall risk assessment a) No falls within the last year [facility] 250 DO Work Phone: Tobacco use status CPHS b) No [facility] 250 DO Work Phone: Vital Signs Date Time Vital Sign Value Performing Clinician Rody ace 03-01-2024 11:12-0500 Body height 177.8 cm Osvaldo Dickinson MD Work Phone: [facility] 03-01-2024 11:12-0500 Body mass index (BMI) [Ratio] 30.13 kg/m2 Osvaldo Dickinson MD Work Phone: [facility] 03-01-2024 11:12-0500 Body weight 95.25 kg Osvaldo Dickinson MD Work Phone: [facility] 03-01-2024 11:12-0500 Diastolic blood pressure 54 mm[Hg] Osvaldo Dickinson MD Work Phone: [facility] 03-01-2024 11:12-0500 Heart rate 71 /min Osvaldo Dickinson MD Work Phone: [facility] 03-01-2024 11:12-0500 Systolic blood pressure 114 mm[Hg] Osvaldo Dickinson MD Work Phone: [facility] 12-14-2023 13:17-0400 Diastolic blood pressure 70 mm[Hg] Dank Robert DO Work Phone: [facility] 12-14-2023 13:17-0400 Heart rate 68 /min Dank Robert DO Work Phone: [facility] 12-14-2023 13:17-0400 SaO2% (BldA) [Mass fraction] 97 % Dank Robert DO Work Phone: [facility] 12-14-2023 13:17-0400 Systolic blood pressure 152 mm[Hg] Dank Robert DO Work Phone: [facility] 08-25-2023 12:12-0400 Body height 177.8 cm Varghese Caal MD Work Phone: [facility] 08-25-2023 12:12-0400 Body mass index (BMI) [Ratio] 33.43 kg/m2 Varghese Caal MD Work Phone: [facility] 08-25-2023 12:12-0400 Body weight 105.69 kg Varghese Caal MD Work Phone: [facility] 08-25-2023 12:12-0400 Diastolic blood pressure 54 mm[Hg] Varghese Caal MD Work Phone: [facility] 08-25-2023 12:12-0400 Heart rate 60 /min Varghese Caal MD Work Phone: [facility] 08-25-2023 12:12-0400 Systolic blood pressure 126 mm[Hg] Varghese Caal MD Work Phone: [facility] 02-10-2023 11:37-0500 Body height 177.8 cm Varghese Caal MD Work Phone: [facility] 02-10-2023 11:37-0500 Body mass index (BMI) [Ratio] 32.28 kg/m2 Varghese Caal MD Work Phone: [facility] 02-10-2023 11:37-0500 Body weight 102.06 kg Varghese Caal MD Work Phone: [facility] 02-10-2023 11:37-0500 Diastolic blood pressure 58 mm[Hg] Varghese Caal MD Work Phone: [facility] 02-10-2023 11:37-0500 Heart rate 63 /min Varghese Caal MD Work Phone: [facility] 02-10-2023 11:37-0500 Systolic blood pressure 120 mm[Hg] Varghese Caal MD Work Phone: [facility] 07-01-2022 10:54-0400 Body height 177.8 cm Andrea Espinoza [facility] 600 DO Work Phone: 07-01-2022 10:54-0400 Body mass index (BMI) [Ratio] 32.71 kg/m2 Andrea Espinoza Work Phone[facility] 600 DO Work Phone: 07-01-2022 10:54-0400 Body surface area Derived from formula 2.21 m2 Andrea Espinoza Work Phone: [facility] 600 DO Work Phone: 07-01-2022 10:54-0400 Body weight 103.42 kg Andrea Espinoza Work Phone: [facility] 600 DO Work Phone: 07-01-2022 10:54-0400 Diastolic blood pressure 64 mm[Hg] Andrea Vasquezroh Work Phone: [facility] 600 DO Work Phone: 07-01-2022 10:54-0400 Heart rate 72 /min Andrea Vasquezroh Work Phone: [facility] 600 DO Work Phone: 07-01-2022 10:54-0400 Systolic blood pressure 118 mm[Hg] Andrea [facility]roh [facility] Phone: [facility] 600 DO Work Phone: 12-16-2021 11:08-0400 Body height 177.8 cm Andrea Houstonh Work Phone: [facility] 600 DO Work Phone: 12-16-2021 11:08-0400 Body mass index (BMI) [Ratio] 33.86 kg/m2 Andrea Vasquezroh Work Phone: [facility] 600 DO Work Phone: 12-16-2021 11:08-0400 Body surface area Derived from formula 2.24 m2 Andrea Vasquezroh Work Phone: [facility] 600 DO Work Phone: 12-16-2021 11:08-0400 Body weight 107.05 kg Andrea Vasquezroh Work Phone: [facility] 600 DO Work Phone: 12-16-2021 11:08-0400 Diastolic blood pressure 64 mm[Hg] Andrea Espinoza Work Phone: [facility] 600 DO Work Phone: 12-16-2021 11:08-0400 Heart rate 72 /min Andrea Espinoza Work Phone: [facility] 600 DO Work Phone: 12-16-2021 11:08-0400 Systolic blood pressure 132 mm[Hg] Andrea Espinoza Work Phone: [facility] 600 DO Work Phone: 01-22-2021 14:36-0400 Body height 177.8 cm Andrea Espinoza Work Phone: [facility] 250 DO Work Phone: 01-22-2021 14:36-0400 Body mass index (BMI) [Ratio] 34.01 kg/m2 Andrea Espinoza Work Phone: [facility] 250 DO Work Phone: 01-22-2021 14:36-0400 Body surface area Derived from formula 2.24 m2 Andrea Espinoza Work Phone: [facility] 250 DO Work Phone: 01-22-2021 14:36-0400 Body weight 107.5 kg Andrea Espinoza Work Phone: [facility] 250 DO Work Phone: 01-22-2021 14:36-0400 Diastolic blood pressure 54 mm[Hg] Andrea Espinoza Work Phone: [facility] 250 DO Work Phone: 01-22-2021 14:36-0400 Heart rate 76 /min Andrea Espinoza Work Phone: [facility] 250 DO Work Phone: 01-22-2021 14:36-0400 Systolic blood pressure 104 mm[Hg] Andrea Houstonzulay Work Phone: [facility] 250 DO Work Phone: Encounters Encounter Date Encounter Type Care Provider Facility Start: 05-18-2024 ambulatory Mica M. Lue [facility] Start: 05-12-2024 ambulatory Mica M. Lue Facility:[facility] [place] Start: 04-26-2024 End: 04-26-2024 ambulatory Mica M. Lue Facility:[facility] Start: 04-25-2024 End: 04-25-2024 ambulatory Deepti Sernaa Facility:[facility] Start: 04-25-2024 End: 04-25-2024 ambulatory Mica M. Lue Facility:[facility] Start: 04-12-2024 End: 04-12-2024 ambulatory Mica M. Lue Facility:[facility] Start: 04-06-2024 End: 04-06-2024 ambulatory Mica M. Lue [facility] Start: 03-28-2024 End: 03-28-2024 ambulatory Benton Vasquez [facility] Work Phone: Start: 03-28-2024 End: 03-28-2024 Departed Referred Benton Vasquez DO [facility] Start: 03-24-2024 End: 03-24-2024 ambulatory Mica M. Lue Facility:[facility] Start: 03-11-2024 End: 03-11-2024 ambulatory Benton Vasquez Facility:[facility] Start: 03-11-2024 End: 03-11-2024 Departed Referred Benton Vasquez DO [facility] Start: 03-02-2024 [...] BMI 30.0-30.9,adult Start: 03-01-2024 End: 03-01-2024 ambulatory [facility] Start: 02-19-2024 End: 02-19-2024 Emergency department patient visit LORI Vallejo [facility] Start: 02-18-2024 End: 02-18-2024 ambulatory Mica Car Facility:[facility] Start: 02-14-2024 End: 02-14-2024 ambulatory Mica Car Facility:[facility] Start: 01-31-2024 End: 01-31-2024 ambulatory Anna Milespatriciavalery Facility:[facility] Start: 01-24-2024 End: 01-24-2024 Emergency department patient visit BOBO Theodora [facility] Start: 01-17-2024 End: 01-17-2024 Office outpatient [...] flowsheet Dank Robert DO Work Phone: [facility] Start: 12-14-2023 End: 12-14-2023 Bamboo [...] Start: 11-12-2023 End: 11-12-2023 ambulatory Mica Car Facility:[facility] Start: 10-14-2023 End: 10-14-2023 Emergency department patient visit Vinipete Quinteros Facility:[facility] Start: 10-14-2023 ambulatory Barb Elkins cility:[facility] Start: 08-31-2023 End: 08-31-2023 ambulatory BLANCA A PETITTI Not Available Start: 08-25-2023 End: 08-25-2023 Office outpatient visit 25 minutes Varghese Caal MD Work Phone: [facility] Comment on above: Essential hypertensi on (Primary Dx); Sick sinus syndrome (Multi); Mixed hyperlipidemia; Paroxysmal atrial fibrillation (Multi); Dilated cardiomyopathy (Multi); Pacemaker; BMI 33.0-33.9,adult Start: 08-25-2023 End: 08-25-2023 ambulatory [facility] Ambulatory Start: 08-10-2023 End: 08-10-2023 ambulatory BLANCA A PETITTI Not Available Start: 06-16-2023 End: 06-16-2023 ambulatory NAPOLEON TA Facility:[facility] Start: 05-07-2023 End: 05-07-2023 ambulatory Mica Car Facility:[facility] Start: 03-19-2023 End: 03-19-2023 ambulatory BLANCA PETITTI Not Available Start: 03-05-2023 End: 03-05-2023 ambulatory BLANCA A PETITTI Not Available Start: 02-10-2023 End: 02-10-2023 Office outpatient visit 25 minutes Varghese Caal MD Work Phone: [facility] Comment on above: Sick sinus syndrome (CMS/HCC) (Primary Dx); Mobitz type II atrioventricular block; Pacemaker; Essential hypertension; Dilated cardiomyopathy (CMS/HCC); Paroxysmal atrial fibrillation (CMS/HCC) Start: 10-22-[address] Andrea Espinoza Facility: Start: 07-01-2022 Office outpatient vi sit 25 minutes Andrea Espinoza Work Phone: [facility] 600 DO Work Phone: Start: 07-01-[address] Varghese Caal II Facility: Start: 05-28-2022 End: 05-28-[address] TRINO Lange Facility:[facility]1 Start: 05-14-2022 End: 05-15-2022 ambulatory MARIXA ROY Facility:[facility]1 Start: 04-23-[address] Andrea Espinoza Facility: Start: 12-31-2021 Rx Renewal Andrea Espinoza Work Phone: [facility] 250 DO Work Phone: Start: 12-16-2021 Office outpatient vi sit 25 minutes Andrea Espinoza Work Phone: [facility] 600 DO Work Phone: Start: 12-16-[address] Varghese Caal II Facility: Start: 01-22-2021 Office outpatient vi sit 25 minutes Andrea Espinoza Work Phone: [facility] 250 DO Work Phone: Procedures Date Procedure [...] DTaP/Tdap/Td Vaccines (2 - Td or Tdap) [facility] Start: 01-25-2025 End: 01-25-2025 Patient encounter procedure 01/25/2025 1:05 PM EST Office Visit [facility] [address] [place] [address] Blanca Alonso MD [address] [place] [address] [facility] Start: 12-12-2024 End: 12-12-2024 Patient encounter procedure 12/12/2024 1:00 PM EDT Office Visit [facility] [address] [facility] [place] [address] Rox Cervantes, DIFFERENTIAL SPECIALIST [address] [place], [place] [facility] Start: 11-28-2024 Glaucoma screening Diabetes: R etinopathy Screening [facility] Start: 11-07-2024 End: 11-07-2024 Patient encounter procedure 11/07/2024 10:30 AM EDT Office Visit [place] [address] [place] [id number] Osvaldo Dickinson MD [address] [facility], [address] [place] [address] [facility] Start: 03-28-2024 Urine culture [facility] Start: 03-28-2024 Bacteria identified in Urine by Culture Urine Culture [facility] Start: 03-01-2024 End: 03-01-2024 Patient encounter procedure 03/01/2024 11:00 AM EST Office Visit [address] [place] [address] Osvaldo Dickinson MD [address] [facility], [address] [place] [address] [facility] Start: 01-17-2024 End: 01-17-2024 Patient encounter procedure 01/17/2024 3:15 PM EDT Office Visit [facility] [address] [place] [address] Blanca Alonso MD [address] [place] [address] [facility] Start: 12-14-2023 End: 12-14-2023 Patient encounter procedure 12/14/2023 1:30 PM EDT Office Visit [facility] [address] [place] [address] Dank Jones DO [address] [place] [address] Arrived [facility] Comment on above: Arrived Start: 12-01-2023 Glaucoma screening Diabetes: R etinopathy Screening [facility] Start: 08-25-2023 End: 08-25-2023 Patient encounter procedure 08/25/2023 11:40 AM EDT Office Visit [address] [place] [address] Varghese Caal MD [address] [facility] [address], [address] [place] [address] [facility] Start: 06-05-2023 COVID-19 Vaccine ( season) COVID-19 Vaccine () [facility] Start: 04-01-2023 COVID-19 Vaccine (6 - Moderna series) COVID-19 Vaccine (6 - Moderna series) [facility] Start: 02-10-2023 FUV, Provider: Varghese Caal, Status: Pen, Time: 11:30 AM FUV, Provider: Varghese Caal, Status: Pen, Time: 11:30 AM -[facility] 600 DO Work Phone: Start: 07-01-2022 FUV, Provider: Varghese Caal, Status: Pen, Time: 10:40 AM FUV, Provider: Varghese Caal, Status: Pen, Time: 10:40 AM -[facility] 600 DO Work Phone: Start: 09-10-2021 FUV, Provider: Varghese Caal, Status: Pen, Time: 2:30 PM FUV, Provider: Varghese Caal, Status: Pen, Time: 2:30 PM -[facility] 250 DO Work Phone: Start: 2020 RSV High Risk: (Elde rly (60+) or Population) (1 - 1-dose 75+ series) RSV High Risk: (Elderly (60+) or Population) (1 - 1-dose 75+ series) [facility] Start: 05-09-2020 Echocardiography Echocardiogram [facility] Start: 2005 RSV patient s and/or patients aged 60+ years (1 - 1-dose 60+ series) RSV patients and/or patients aged 60+ years (1 - 1-dose 60+ series) [facility] Start: 11-26-1995 Zoster Vaccines (1 of 2) Zoste r Vaccines (1 of 2) [facility] Start: 1964 Urine screening for protein Diabetes: Urine Protein Screening [facility] Start: 11-26-1963 [facility]: [facility]1955 Diabetic foot examination Diabetes: Foot Exam [facility] Start: 11-26-1955 Glaucoma screening Diabetes: R etinopathy Screening [facility] Start: 1945 Creatinine measurement Creatinine Le sarah [facility] Start: 1945 Hemoglobin A1c measurement Jennifer nicolasa: Hemoglobin A1C [facility] Start: 1945 Lipid panel Lipid Panel [facility] Start: 1945 Medicare Annual Well ness Visit Medicare Annual Wellness Visit (AWV) [facility] Start: 1945 Potassium measurement Potassium Cb l [facility] Immunizations Immunization Date Immunization Notes Care Provider Fa naren 01-14-2022 Fluad Quadrivalent 0 .5 ML Intramuscular Prefilled Syringe Andrea Patel Pedroemma [facility] 600 DO Work Phone: 01-14-2022 Pfizer COVID-19 Vac Bivalent 30 MCG/0.3ML Intramuscular Suspension Andrea Patel Pedroemma Work Phone: [facility] 600 DO Work Phone: 09-03-2021 pneumococcal conjuga te vaccine, 13 valent Dank Robert DO Work Phone: [facility] 02-15-2021 Moderna COVID-19 Vac cine 100 MCG/0.5ML Intramuscular Suspension Andrea Amanda Vasquezemma Work Phone: [facility] 600 DO Work Phone: 01-30-2021 influenza virus vacc ine, unspecified formulation Andrea Patel Pedroemma Work Phone: [facility] 600 DO Work Phone: 11-28-2020 influenza, high dose seasonal, preservative-free Andrea Patel Pedroemma Work Phone: [facility] 250 DO Work Phone: Comment on above: Series: 06-20-2020 Moderna COVID-19 Vac cine 100 MCG/0.5ML Intramuscular Suspension Andrea Patel Pedroyann Work Phone: [facility] 600 DO Work Phone: 05-20-2020 Moderna COVID-19 Vac cine 100 MCG/0.5ML Intramuscular Suspension [facility] Work Phone: Comment on above: Series: 04-25-2020 Moderna COVID-19 Vac cine 100 MCG/0.5ML Intramuscular Suspension Andrea Espinoza Work Phone: [facility] 250 DO Work Phone: Comment on above: Series: 12-21-2019 influenza virus vacc ine, unspecified formulation Andrea Espinoza Work Phone: [facility] DO Work Phone: 12-20-2018 influenza, high dose seasonal, preservative-free Andrea Espinoza Work Phone: [facility] 02-19-2018 influenza virus vacc ine, unspecified formulation Andrea Houston Work Phone: [facility] 600 DO Work Phone: 02-19-2018 pneumococcal polysaccharide vaccine, 23 valent Andrea Houston Work Phone: [facility] 250 DO Work Phone: Comment on above: Series: 02-19-2018 pneumococcal vaccine , unspecified formulation Andrea Espinoza Work Phone: [facility] 02-18-2017 Influenza, injectabl e, Madin [place] Canine Kidney, preservative free, quadrivalent Andrea Houston Work Phone: [facility] 600 DO Work Phone: 11-24-2016 influenza, high dose seasonal, preservative-free Andrea Vasquezro Work Phone: [facility] DO Work Phone: 12-21-2015 pneumococcal conjuga te vaccine, 13 valent Andrea Houston Work Phone: [facility] 250 DO Work Phone: Comment on above: Series: Payers Date Payer Category Payer Self-pay 2022 Medicare [id number] 2022 [employer] ( and others) [id number]. [id number] 2022 () [id number]. [id number] 2022 For Life (TFL) F OR LIFE 1.2.840.982885.1.13.647. [id number] 2022 [employer] ( and others) [id number] 2010 Medicare [id number]. 1.13.647. [id number] 1959 [employer] ( and others) [id number] 1959 Medicare [id number] 1945 Unknown [id number] 2.16.840.1.147935.3.579. 2.593 1945 Unknown [id number] 2.16.840.1.201705.3.579. 2.593 1945 Unknown [id number] 2.16.840.1.434775.3.579. 2.356 1945 Unknown [id number] 2.16840.1.625903.3.579. 2.356 1945 Unknown [id number] 2.840.1.663626.3.579. 2.356 1945 Unknown [id number] 2.840.1.613603.3.579. 2.356 1945 Unknown [id number] 2.840.1.091897.3.579. 2.1259 1945 Unknown [id number] 2.840.1.171671.3.579. 2.1259 1945 Unknown [id number] 2.840.1.402452.3.579. 2.1259 1945 Unknown [id number] 2.840.1.109875.3.579. 2.1259 1945 Unknown [id number] 2.840.1.750260.3.579. 2.1259 1945 Unknown [id number] 2.840.1.924128.3.579. 2.1259 1945 Unknown [id number] 2.840.1.154325.3.579. 2.1286 1945 Unknown [id number] 2.840.1.653723.3.579. 2.1286 1945 Unknown [id number] 2.840.1.027627.3.579. 2.1244 1945 Unknown [id number] 2.840.1.809634.3.579. 2.1244 1945 Unknown [id number] 2.16.840.1.209981.3.579. 2.72 1945 Unknown [id number] 2.16.840.1.190708.3.579. 2. 1945 Unknown [id number] 2.16.840.1.190594.3.579. 2. 1945 Unknown [id number] 2.16.840.1.791593.3.579. 2. 1945 Unknown [id number] 2.16.840.1.375397.3.579. 2. 1945 Unknown [id number] 2.16.840.1.789089.3.579. 2 1945 Unknown [id number] 2.16.840.1.561540.3.579. 2 1945 Unknown [id number] 2.16.840.1.178390.3.579. 2 1945 Unknown [id number] 2.16.840.1.639737.3.579. 2 1945 Unknown [id number] 2.16.840.1.908727.3.579. 2 1945 Unknown [id number] 2.16.840.1.705368.3.579. 2. 1945 Unknown [id number] 2.16.840.1.201464.3.579. 2 1945 Unknown [id number] 2.16.840.1.343507.3.579. 2. 1945 Unknown [id number] 2.16.840.1.978535.3.579. 2 1945 Unknown [id number] 2.16.840.1.619131.3.579. 2. 1945 Unknown [id number] 2.16.840.1.763372.3.579. 2.727 1945 Unknown [id number] 2.16.840.1.467439.3.579. 2.727 1945 Unknown [id number] 2.16.840.1.842903.3.579. 2.727 1945 Unknown [id number] 2.16.840.1.942696.3.579. 2.727 1945 Unknown [id number] 2.16.840.1.960159.3.579. 2.727 Unknown Unknown [id number] 2.16.840.1.155107.3.579. 2.531 Unknown [id number] 2.16.840.1.935410.3.579. 2.531 Social History Date Type Detail Facility Start: 02-10-2023 End: 12-14-2023 No illicit drug use No illicit drug use [facility] 250 DO Work Phone: Comment on above: quit , 1 PPD; Start: 02-10-2023 End: 08-25-2023 Tobacco smoking status NHIS Ex-smoker [facility] Work Phone: End: 03-22-1992 History of tobacco use Current smoker [facility] Work Phone: End: 03-22-1992 History of tobacco use Cigarette Smoker [facility] Work Phone: Start: 10-11-2022 End: 02-10-2023 Tobacco use and exposure Smokeless tobacco non-user [facility] Work Phone: Start: 02-10-2023 End: 12-14-2023 Alcohol intake Lifetime non-drinker (finding) [facility] Work Phone: Start: 02-10-2023 End: 12-14-2023 Tobacco use panel [facility] Work Phone: Start: 1945 Sex Assigned At Not on file [facility] Work Phone: Start: 01-31-2023 End: 03-01-2024 Exposure to SARS-CoV-2 (event) Not sure [facility] Start: 10-11-2022 Tobacco smoking stat NHIS Never smoked tobacco [facility] Tobacco smoking stat us NHIS Unknown if ever smoked [facility] Work Phone: Start: 03-30-2024 Sex Patient sex un known (finding) [facility] Start: 1945 Sex Assigned At Male [facility] Clinical Notes 05-14-2022 to 04-26-2024 Osvaldo Dickinson [...] provider. Document Revised: 11/05/2021 Document Reviewed: 11/05/2021 [employer] [place] Patient Education ? 2023 [employer]. [facility] 04-12-2024 Note Patient Education Urology Benign [...] Follow these instructions at home: ??? Take luns-sif-oxstngu and prescription medicines only as told by [...] do not get (more content not included)... [facility] 03-02-2024 Note Patient Education Urology Acute [...] these instructions at home: Medicines ??? Take ggvw-ljr-fjmfpnw and prescription medicines only as told by [...] provider. Document Revised: 11/27/2020 Document Reviewed: 11/27/2020 [employer] Patient Education ? 2023 [employer]. [facility] 03-01-2024 History of Present illness Narrative [...] to retrieve his recent lab work from [facility] 5. I will see him back in [...] discussion and plan. documented in this encounter [facility] Work Phone: 03-01-2024 Instructions Betzaida Denney [...] instructions on exercise. documented in this encounter [facility] Work Phone: 02-14-2024 Note Patient Education [...] to the c (more content not included)... [facility] 01-31-2024 Note Patient Education Urology Acute [...] these instructions at home: Medicines ??? Take nlru-qzk-rfvtoue and prescription medicines only as told by [...] provider. Document Revised: 11/27/2020 Document Reviewed: 11/27/2020 [employer] Patient Education ? 2023 [employer] Benign Prostatic Hyperplasia Benign prostatic hyperplasia (BPH) is an enlarged prostate gland that is caused by the normal aging proc (more content not included)... 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 and he has [...] Visit: 1 year documented in this encounter [facility] 12-27-2023 Note Progress Note-Asaf tapia [...] day(s), # 6 tab(s), Refills(s) 0, Pharmacy: [facility] #[id number], 177, cm, 12/27/23 11:02:00 EDT, Height/Length Dosing, 104, kg, 12/27/23 11:02:00 EDT, Weight Dosing [place] 325 mg-5 mg oral tablet: 1 tab(s), Oral, q6hr for pain, 4 tab(s), Refill(s) 0, Take 1 tablet an hour before procedure, post procedure prn, [facility] #[id number], 177, cm, 12/27/23 11:02:00 EDT, Height/Length Dosing, 104, kg, 12/27/23 11:02:00 EDT, Weight Dosing sildenafil 100 mg Tab: 100 mg = 1 tab(s), Oral, As Directed, PRN for erectile dysfunction, Take one tab 1 hour prior to sexual activity., # 30 tab(s), Refills(s) 3, [facility]: [id number], 177.8, cm, 06/16/23 10:18:00 EDT, Height/Length Dosing, 104.8, kg, 06/16/23 10:18:... terazosin 10 mg Cap: 10 mg = 1 cap(s), Oral, Once a day (at bedtime), # 90 cap(s), Refills(s) 3, Pharmacy: [facility], 177, cm, 12/27/23 11:02:00 EDT, Height/Length Dosing, 104, kg, 12/27/23 11:02:00 EDT, Weight Dosing traMADOL 50 mg Tab: 50 mg = 1 tab(s), Oral, q6hr, Take as needed for pain., # 6 tab(s), Refills(s) 0, Pharmacy: [facility] #[id number], 177.8, cm, 11/12/23 15:35:00 EDT, Height/Length Dosing, [...] Plan: Diagnosis: Prostate hyperplasia with urinary obstruction (GIO60-UP N40.1, Discharge, Medical), Feeling of incomplete bladder emptying (WRK09-QT R39.14, Working, Medical), Anticoagulated (FWE31-PF Z79.01, Discharge, Medical). 78 yo male here [...] Valium prior to procedure. 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 The procedural risks, benefits, details, and treatment alternatives have been discussed with the patient. These include bleeding, infection, continued problems urinating, increased frequency with urgency during the healing process, painful urination, need for indwelling cathete (more content not included)... [facility] Comment on above: Result Comment: Elec [...] you have a fever over 100 degrees. [facility] 12-14-2023 History of Present illness Narrative [...] Actinic keratosis COPD (chronic obstructive pulmonary disease) ([facility]/HCC) Coronary heart disease (CMS/HCC) Diabetes mellitus, type 2 (CMS/HCC) HTN (hypertension) ([facility]/HCC) Hx of psoriasis Kidney disease W[place] (myocardial infarction) ([facility]/HCC) VIRGILIO (obstructive sleep apnea) Pacemaker Squamous cell [...] Return to clinic: documented in this encounter [facility] 11-12-2023 Note Patient Education Urology [...] Follow these instructions at home: ? Take fyty-nmb-zshjnke and prescription medicines only as told by [...] develop side effec (more content not included)... [facility] 10-14-2023 Note ED Patient Education Note [...] under your knee. General instructions ? Take fsju-xce-oezltmg and prescription medicines only as told by [...] provider. Document Revised: 08/21/2020 Document Reviewed: 08/21/2020 [employer] Patient Education ? 2022 [employer]. [facility] 08-25-2023 History of Present illness Narrative [...] discussion and plan. documented in this encounter [facility] Work Phone: 08-25-2023 Instructions Jo Ann [...] of your visit. documented in this encounter [facility] Work Phone: 02-10-2023 History of Present [...] recent pacemaker checks. documented in this encounter [facility] Work Phone: 02-10-2023 Instructions Alize James [...] up per routine documented in this encounter [facility] Work Phone: 05-14-2022 Note PROCEDURE: XR [...] by: JOE DU Date: 2022-05-14 18:40 [facility] Evaluation note Diagnosis Sick sinus syndrome (CMS/HCC)- Primary Sinoatrial node dysfunction Mobitz type II atrioventricular block Mobitz (type) II atrioventricular block Pacemaker Cardiac pacemaker in situ Essential hypertension Unspecified essential hypertension Dilated cardiomyopathy (CMS/HCC) Other primary cardiomyopathies Paroxysmal atrial fibrillation (CMS/HCC) Atrial fibrillation documented in this encounter [facility] Work Phone: Evaluation note* Diagnosis Essential hypertension- Primary Unspecified essential hypertension Sick sinus syndrome (Multi) Sinoatrial node dysfunction Mixed hyperlipidemia Paroxysmal atrial fibrillation (Multi) Atrial fibrillation Dilated cardiomyopathy (Multi) Other primary cardiomyopathies Pacemaker Cardiac pacemaker in situ BMI 33.0-33.9,adult documented in this encounter [facility] Work Phone: Evaluation note* Diagnosis Other atopic dermatitis- Primary Seborrheic keratosis Lentigines History of SCC (squamous cell carcinoma) of skin Personal history of other malignant neoplasm of skin documented in this encounter [facility] HealthcareEvaluation note* Diagnosis Paroxysmal atrial fibrillation (Multi)- Primary Atrial fibrillation Sick sinus syndrome (Multi) Sinoatrial node dysfunction Pacemaker Cardiac pacemaker in situ Essential hypertension Unspecified essential hypertension Cardiomyopathy, unspecified type (Multi) Mixed hyperlipidemia Stage 4 chronic kidney disease (Multi) Non-smoker BMI 30.0-30.9,adult documented in this encounter [facility] Work Phone: Evaluation note* Diagnosis VIRGILIO (obstructive sleep apnea)- Primary Obstructive sleep apnea (adult) (pediatric) Hypersomnia Hypersomnia, unspecified PLMD (periodic limb movement disorder) Periodic limb movement disorder Obesity due to excess calories, unspecified classification, unspecified whether serious comorbidity present Snoring Other dyspnea and respiratory abnormality documented in this encounter [facility] HealthcareEvaluation noteNo assessment information available[facility] Work Phone: History of Present illness NarrativePatient [...] on the basis of his improve lifestyle modification.-[facility] 250 DO Work Phone: History of Present [...] the merits of diet and weight loss. 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 [facility] 600 DO Work Phone: Reason for referral (narrative)* Consultation (Routine) - Authorized Specialty Diagnoses / Procedures Referred By Elida gifford Referred To Contact Cardiology Diagnoses Sick sinus syndrome (CMS/HCC) Procedures Follow Up In Cardiology Varghese Caal MD [address] [place] [address], [address] [address] Varghese Caal MD [address] [place] [address], [address] [address] Referral ID Status Reason Start Date Expiration Date V isits Requested Visits Authorized [id number] Authorized 02/10/2023 02/10/2024 1 1 [facility] Work Phone: Reason for referral (narrative)* Consultation (Routine) - Authorized Specialty Diagnoses / Procedures Referred By Elida gifford Referred To Contact Cardiology Diagnoses Sick sinus syndrome (Multi) Procedures Follow Up In Cardiology Varghese Caal MD [address] [facility] [address], [address] [address] Osvaldo Dickinson MD [address] [facility], [facility] [address] [place] [address] Referral ID Status Reason Start Date Expiration Date V isits Requested Visits Authorized [id number] Authorized 08/25/2023 08/24/2024 1 1 [facility] Work Phone: Chief Complaint LEIGHTON ARCINIEGA [...] DATE CREATED AUTHOR AUTHOR'S ORGANIZ ATION 01/18/2024 [facility] EPIC DATE CREATED AUTHOR AUTHOR'S ORGANIZ ATION 02/21/2024 [facility] DATE CREATED AUTHOR AUTHOR'S ORGANIZ ATION 03/04/2024 [facility] DATE CREATED AUTHOR AUTHOR'S ORGANIZ ATION 04/02/2024 [facility] DATE CREATED AUTHOR AUTHOR'S ORGANIZ ATION 04/07/2024 [facility] DATE CREATED AUTHOR AUTHOR'S ORGANIZ ATION 04/13/2024 [facility] DATE CREATED AUTHOR AUTHOR'S ORGANIZ ATION 04/27/2024 [facility] DATE CREATED AUTHOR AUTHOR'S ORGANIZ ATION 04/28/2024 [facility] Reason for Visit (unrecogniz ed section and content) Reason Comments Follow-up 6-9mo Reason Comments Follow-up 6-9 months Specialty Diagnoses / Procedures Referred By Contac t Referred To Contact Cardiology Diagnoses Sick sinus syndrome (Multi) Procedures Follow Up In Cardiology Varghese Caal MD [address] [place] [address] Varghese Caal MD [address] [place] [address], [address] [address] Referral ID Status Reason Start Date Expiration Date V isits Requested Visits Authorized [id number] Authorized 02/10/2023 02/10/2024 1 1 Reason Comments Skin Check Follow-up Reason Comments Follow-up 6-9 months Specialty Diagnoses / Procedures Referred By Contac t Referred To Contact Cardiology Diagnoses Sick sinus syndrome (Multi) Procedures Follow Up In Cardiology Varghese Caal MD Traboulssi, Mourhaf, MD [address] [place] [address] Phone: tel: fax: Referral ID Status Reason Start Date Expiration Date V isits Requested Visits Authorized [id number] Authorized 08/25/2023 08/24/2024 1 1 Reason Comments Sleep Apnea Care Teams (unrecognized sec tion and content) [employer] Relationship Specialty Start Date End Date Andrea Espinoza DO [address] [place] [id number] PCP - General 03/22/99 [employer] Relationship Specialty Start Date End Date Andrea Espinoza DO [address] [place] [id number] PCP - General 03/22/99 [employer] Relationship Specialty Start Date End Date Lori Medina MD [address] [place] [id number] PCP - General Family Medicine 10/09/22 [employer] Relationship Specialty Start Date End Date Andrea Espinoza DO [address] [place] [id number] PCP - General 03/22/99 [employer] Relationship Specialty Start Date End Date Lori Medina MD [address] [place] [address] PCP - General Family Medicine 10/09/22 [employer] Relationship Specialty Start Date End Date Lori Medina MD [address] [place] [address] PCP - General Family Medicine 10/09/22 Team [...] BE BASED ON THE PRIMARY CLINICAL RECORDS. [facility]. provides no warranty or guarantee of the accuracy or completeness of information in this document.
--- NOTE | 2024-05-07 16:57 | ED.GENADUL1 ---
HPI HPI - General Adult General Chief complaint: Shortness of Breath/Dyspnea Stated complaint: Shortness of Breath Time Seen by Provider: 05/07/24 16:53 Source: patient Mode of arrival: ambulance History of Present Illness HPI narrative: Patient is a 78-year-old male with a history of COPD on oxygen by nasal cannula at home chronically who presents to the ER by ambulance for evaluation of worsening shortness of breath over the last several days. Patient was admitted to this hospital for pneumonia last week and was discharged yesterday. His breathing has worsened steadily. He denies chest pain. He arrives to the emergency department on CPAP from EMS. He typically wears oxygen at 2 L by nasal cannula but has been wearing it at 3 L without improvement, multiple breathing treatments given at home prior to arrival without improvement. Patient states he was discharged home on steroids and antibiotics. Related Data Home Medications ?Medication ?Instructions ?Recorded ?Confirmed acetaminophen 500 mg capsule 1,000 mg PO Q6H PRN fever or pain 02/26/24 05/03/24 allopurinol 300 mg tablet 300 mg PO DAILY 02/26/24 05/03/24 amlodipine 10 mg tablet 10 mg PO DAILY 02/26/24 05/03/24 apixaban 5 mg tablet (Eliquis) 5 mg PO Q12H 02/26/24 05/03/24 aspirin 81 mg tablet,delayed 81 mg PO .weekly 02/26/24 05/03/24 release (Adult Aspirin Regimen) calcium 315 mg (as 1 tab PO DAILY 02/26/24 05/03/24 citrate)-vitamin D3 5 mcg (200 unit) tablet (Calcium Citrate + D) carvedilol 6.25 mg tablet 6.25 mg PO Q12H 02/26/24 05/03/24 cyanocobalamin (vitamin B-12) 1,000 mcg PO DAILY 02/26/24 05/03/24 1,000 mcg tablet (Vitamin B-12) ferrous sulfate 325 mg (65 mg 325 mg PO DAILY 02/26/24 05/03/24 iron) tablet (iron) furosemide 20 mg tablet 20 mg PO Q12H 02/26/24 05/03/24 glipizide 10 mg tablet 10 mg PO BID 02/26/24 05/03/24 hydralazine 50 mg tablet 100 mg PO Q8H 02/26/24 05/03/24 insulin glargine 100 unit/mL (3 26 unit subcut BID 02/26/24 05/03/24 mL) subcutaneous pen multivitamin (Daily Multi-Vitamin 1 tab PO DAILY 02/26/24 05/03/24 tablet) omeprazole 20 mg capsule,delayed 20 mg PO DAILY 02/26/24 05/03/24 release semaglutide 1 mg/dose (4 mg/3 mL) 1 mg subcut QWEEK 02/26/24 05/03/24 subcutaneous pen injector (Ozempic) sildenafil 100 mg tablet 100 mg PO Q24H PRN sexual activity 02/26/24 05/03/24 simvastatin 20 mg tablet 20 mg PO DAILY 02/26/24 05/03/24 spironolactone 25 mg tablet 25 mg PO DAILY 02/26/24 05/03/24 tacrolimus 0.1 % topical ointment 1 applic topical Q12H PRN skin 02/26/24 05/03/24 irritation terazosin 10 mg capsule 10 mg PO BEDTIME 02/26/24 05/03/24 diclofenac sodium 1 % topical gel 2 g topical BID 04/05/24 05/03/24 ruxolitinib 1.5 % topical cream 1 applic topical BID PRN dermatitis 04/05/24 05/03/24 (Opzelura) tolterodine 2 mg capsule,extended 2 mg PO Q24H 04/05/24 05/03/24 release 24 hr fluconazole 200 mg tablet 400 mg PO Q24H 04/16/24 05/03/24 finasteride 5 mg tablet 5 mg PO DAILY 05/03/24 05/03/24 Previous Rx's ?Medication ?Instructions ?Recorded mirabegron 25 mg tablet,extended 25 mg PO DAILY #30 tabs 03/30/24 release 24 hr (Myrbetriq) albuterol sulfate 2.5 mg/3 mL 2.5 mg (3 mL) inhalation Q4H PRN 05/06/24 (0.083 %) solution for nebulization bronchospasm #90 mL levofloxacin 750 mg tablet 750 mg PO DAILY 10 days #10 tabs 05/06/24 prednisone 10 mg tablet 30 mg (3 x 10 mg) PO DAILY #20 tabs 05/06/24 Allergies Allergy/AdvReac Type Severity Reaction Status Date / Time fosinopril (From Monopril) Allergy Severe shortness Verified 05/07/24 17:03 of breath metoprolol Allergy Severe shortness Verified 05/07/24 17:03 of breath strawberry Allergy Severe Rash Verified 05/07/24 17:03 Opioid HPI Opioid Management Most Recent Opioid Data: Last Pain Scale 0 05/05/24 09:03 05/05/24 Last Pain Intensity 0 05/05/24 10:47 05/05/24 Last Pain Assessment 05/06/24 11:00 Last ORT Total Score 0 05/03/24 01:57 05/03/24 Last ORT Risk Category Low Risk 05/03/24 01:57 05/03/24 Review of Systems ROS Constitutional Denies: fever or chills Ears, nose, mouth, and throat Reports: nasal congestion; Denies: throat pain Cardiovascular Denies: chest pain Respiratory Reports: shortness of breath, cough and chest congestion; Denies: coughing up blood Gastrointestinal Denies: nausea or vomiting Integumentary/Breast Denies: rash Neurological Denies: numbness in extremities or weakness in extremities Hematologic/Lymphatic Denies: easy bruising or easy bleeding PFSH PFS Medical History (Updated 05/04/24 @ 07:58 by Rick Roy DO) Hospital acquired PNA ?J18.9 - Pneumonia, unspecified organism (ICD-10) ?Y95 - Nosocomial condition (ICD-10) Shortness of breath ?R06.02 - Shortness of breath (ICD-10) Congestive heart failure ?I50.9 - Heart failure, unspecified (ICD-10) Pneumonia ?J18.9 - Pneumonia, unspecified organism (ICD-10) Severe sepsis ?A41.9 - Sepsis, unspecified organism (ICD-10) ?R65.20 - Severe sepsis without septic shock (ICD-10) COPD exacerbation ?J44.1 - Chronic obstructive pulmonary disease with (acute) exacerbation (ICD-10) Acute exacerbation of chronic heart failure ?I50.9 - Heart failure, unspecified (ICD-10) Acute hypoxemic respiratory failure ?J96.01 - Acute respiratory failure with hypoxia (ICD-10) Acute kidney injury ?N17.9 - Acute kidney failure, unspecified (ICD-10) Bladder spasm ?N32.89 - Other specified disorders of bladder (ICD-10) Urinary tract infection ?N39.0 - Urinary tract infection, site not specified (ICD-10) Urinary tract infection ?N39.0 - Urinary tract infection, site not specified (ICD-10) Failure of outpatient treatment ?Z78.9 - Other specified health status (ICD-10) Urinary tract infection ?N39.0 - Urinary tract infection, site not specified (ICD-10) Skin cancer ?C44.90 - Unspecified malignant neoplasm of skin, unspecified (ICD-10) Myocardial infarction ?I21.9 - Acute myocardial infarction, unspecified (ICD-10) Pacemaker ?Z95.0 - Presence of cardiac pacemaker (ICD-10) CKD (chronic kidney disease) ?N18.9 - Chronic kidney disease, unspecified (ICD-10) CAD (coronary artery disease) ?I25.10 - Atherosclerotic heart disease of [place] coronary artery without angina pectoris (ICD-10) A-fib ?I48.91 - Unspecified atrial fibrillation (ICD-10) Erectile dysfunction ?N52.9 - Male erectile dysfunction, unspecified (ICD-10) UTI (urinary tract infection) ?N39.0 - Urinary tract infection, site not specified (ICD-10) GERD (gastroesophageal reflux disease) ?K21.9 - Gastro-esophageal reflux disease without esophagitis (ICD-10) Hypertension ?I10 - Essential (primary) hypertension (ICD-10) Diabetes ?E11.9 - Type 2 diabetes mellitus without complications (ICD-10) Surgical History History of arthroscopic knee surgery ?Z98.890 - Other specified postprocedural states (ICD-10) Hx of tonsillectomy ?Z90.89 - Acquired absence of other organs (ICD-10) Family History Mother Family history of CHF (congestive heart failure) Family history of myocardial infarction Family history of hypertension Family history of diabetes mellitus Family history of COPD (chronic obstructive pulmonary disease) Grandmother Family history of CHF (congestive heart failure) Brother Family history of CHF (congestive heart failure) Family history of myocardial infarction Family history of hypertension Family history of COPD (chronic obstructive pulmonary disease) Father Kidney failure Social History Within the past year, how often did you have a drink containing alcohol: never Score interpretation: A score less than 4 is consistent with normal alcohol consumption. Smoking status: Former smoker Non-prescribed substance use: denies use Known occupational exposures/hazards: No Highest level of school completed/degree received: some college, no degree Do you want help with school or training: No Little interest or pleasure in doing things: not at all Feeling down, depressed, or hopeless: not at all Gender Identity: male Exam Narrative Exam Narrative: Gen.: Awake, alert, mild respiratory distress Head: Normocephalic, atraumatic ENT: Moist mucous membranes Respiratory: Mild respiratory distress, diminished lung sounds globally, dry cough noted. Unable to speak in full sentences Cardio: Regular rate and rhythm Extremities: Moves extremities equally Psych: Normal mood and affect Neuro: No focal neuro deficit Skin: Warm, dry, intact Constitutional Vital Signs, click to edit/add: Last Vital Signs Pulse 81 05/07/24 17:11 Resp 22 H 05/07/24 17:03 BP 132/57 05/07/24 17:03 Pulse Ox 95 05/07/24 17:11 O2 Del Method Nasal Cannula 05/07/24 17:03 O2 Flow Rate 3 05/07/24 17:03 FiO2 40 05/07/24 17:11 Course Vital Signs Vital signs: Vital Signs Pulse Rate 83 05/07/24 17:03 Respiratory Rate 22 H 05/07/24 17:03 Blood Pressure 132/57 05/07/24 17:03 Pulse Oximetry 88 L 05/07/24 17:03 Oxygen Delivery Method Nasal Cannula 05/07/24 17:03 Oxygen Delivery Flow Rate 3 05/07/24 17:03 Pulse Rate 81 05/07/24 17:11 Respiratory Rate 22 H 05/07/24 17:03 Blood Pressure 132/57 05/07/24 17:03 Pulse Oximetry 95 05/07/24 17:11 Oxygen Delivery Method Nasal Cannula 05/07/24 17:03 Oxygen Delivery Flow Rate 3 05/07/24 17:03 Fraction of Inspired Oxygen 40 05/07/24 17:11 Medical Decision Making MDM Narrative Medical decision making narrative: On arrival to the ER, patient is in mild respiratory distress. CPAP was transferred to BiPAP by respiratory therapy with improvement. He has no complaints of chest pain. His sepsis workup was ordered including blood cultures and respiratory swabs. A stat portable chest x-ray was done showing worsening of infiltrate versus fluid in the lower lungs bilaterally. Laboratory studies reviewed and noted showing stable anemia, elevated BUN, significantly elevated BNP, normal troponin. Patient is resting more comfortably on BiPAP. Zosyn and vancomycin given for broad-spectrum antibiotic coverage given recent hospital admission. Discussed with the hospitalist who will order a Bumex drip for diuresis. Patient is anticoagulated on Eliquis. Significantly more stable at time of admission. SHARED APC VISIT, PHYSICIAN ATTESTATION: [id number] I performed a substantive part of the MDM during the patient?s E/M visit. I personally evaluated and examined the patient. I personally made or approved the documented management plan and acknowledge its risk of complications. Medical Records Medical records reviewed: Yes I reviewed the patient's medical records Lab Data Lab results reviewed: Yes I reviewed the patient's lab results Labs: Lab Results 05/07/24 05/07/24 Range/Units 17:01 17:05 WBC 12.9 H (4.0-11.0) 10^3/uL RBC 2.95 L (4.70-6.10) 10^6/uL Hgb 9.6 L (14.0-18.0) g/dL Hct 28.0 L (42.0-54.0) % MCV 94.9 H (80.0-94.0) fL MCH 32.5 (25.9-34.0) pg MCHC 34.3 (29.9-35.2) g/dL RDW 15.9 H (11.0-15.0) % Plt Count 139 L (150-450) 10^3/uL MPV 8.4 L (9.5-13.5) fL Seg Neuts % (Manual) 93.0 H (43.0-75.0) Lymphocytes % (Manual) 0.0 L (20.5-60.0) % Monocytes % (Manual) 7.0 (1.7-12.0) % Eosinophils % (Manual) 0.0 L (0.9-7.0) % Basophils % (Manual) 0.0 L (0.2-2.0) % Neutrophils # (Manual) 11.99 H (1.4-6.5) 10^3/uL Lymphocytes # (Manual) 0.00 L (1.20-3.80) 10^3/uL Monocytes # (Manual) 0.90 H (0.30-0.80) 10^3/uL Eosinophils # (Manual) 0.00 (0.00-0.70) 10^3/uL Basophils # (Manual) 0.00 (0.00-0.10) 10^3/uL Anisocytosis 1+ Ovalocytes 1+ PT 11.8 H (9.0-11.6) sec INR 1.13 VBG pH 7.448 H (7.330-7.430) VBG pCO2 30.1 L (40.0-52.0) mmHg Sodium 134 L (136-145) mmol/L Potassium 4.5 (3.5-5.1) mmol/L Chloride 101 (98-107) mmol/L Carbon Dioxide 24.1 (21.0-32.0) mmol/L Anion Gap 13.4 BUN 83.0 H* (7.0-18.0) mg/dL Creatinine 2.53 H (0.70-1.30) mg/dL Est GFR ( Amer) 30 L (>=60 mL/min/1.73m^2) Est GFR (Non-Af Amer) 25 L (>=60 mL/min/1.73m^2) BUN/Creatinine Ratio 32.8 Glucose 110 H (74-106) mg/dL Lactate 1.7 (0.4-2.0) mmol/L Calcium 8.7 (8.5-10.1) mg/dL Total Bilirubin 0.4 (0.2-1.0) mg/dL AST 15 (15-37) U/L ALT 29 (16-63) U/L Alkaline Phosphatase 54 (46-116) U/L Troponin I High Sens 54.4 (4.0-76.1) pg/mL C-Reactive Protein <0.50 (<=0.50) mg/dL NT-Pro-B Natriuret Pep >15807.0 H* (<=1800.0) pg/mL Total Protein 5.6 L (6.4-8.2) g/dL Albumin 2.6 L (3.4-5.0) g/dL Globulin 3.0 g/dL Albumin/Globulin Ratio 0.9 Influenza Type A Ag Negative Influenza Type B Ag Negative SARS-CoV-2 Ag (CV2AG) Negative (NEGATIVE) Imaging Data Chest x-ray: Attestation: I have reviewed the pertinent imaging results. Radiologist's impression: ITS Impressions Chest X-Ray 05/07/24 17:04 IMPRESSION: Progressive bilateral airspace density most consistent with bilateral pneumonia most extensive on the right. Cannot exclude component of superimposed edema from heart failure. Electronically authenticated by: AWILDA HELLER Date: 05/07/2024 17:58 ECG Data Attestation: I personally reviewed and interpreted this ECG as follows: (Normal sinus rhythm at a rate of 78, occasional PVC with no acute ST elevation or ectopy compared to previous. EKG reviewed by attending physician) Discharge Plan Discharge Chief Complaint: Shortness of Breath/Dyspnea Time of Disposition Decision: 18:07 Prescriptions / Home Meds: No Action mirabegron [Myrbetriq] 25 mg tablet extended release 24 hr 25 mg PO DAILY Qty: 30 11RF tolterodine 2 mg capsule,extended release 24hr 2 mg PO Q24H diclofenac sodium 1 % gel 2 g TOPICAL BID Opzelura 1.5 % cream 1 applic TOPICAL BID PRN (Reason: dermatitis) fluconazole 200 mg tablet 400 mg PO Q24H finasteride 5 mg tablet 5 mg PO DAILY prednisone 10 mg tablet 30 mg PO DAILY Qty: 20 0RF Rx Instructions: 3/day for 3 days, 2/day for 3 days, 1/day for 3 days, 1/2 /day for 4 days levofloxacin 750 mg tablet 750 mg PO DAILY 10 Days Qty: 10 0RF albuterol sulfate 2.5 mg /3 mL (0.083 %) solution for nebulization 2.5 mg inhalation Q4H PRN (Reason: bronchospasm) Qty: 90 11RF carvedilol 6.25 mg tablet 6.25 mg PO Q12H glipizide 10 mg tablet 10 mg PO BID spironolactone 25 mg tablet 25 mg PO DAILY amlodipine 10 mg tablet 10 mg PO DAILY simvastatin 20 mg tablet 20 mg PO DAILY omeprazole 20 mg capsule,delayed release(DR/EC) 20 mg PO DAILY allopurinol 300 mg tablet 300 mg PO DAILY hydralazine 50 mg tablet 100 mg PO Q8H furosemide 20 mg tablet 20 mg PO Q12H Eliquis 5 mg tablet 5 mg PO Q12H cyanocobalamin (vitamin B-12) [Vitamin B-12] 1,000 mcg tablet 1,000 mcg PO DAILY aspirin [Adult Aspirin Regimen] 81 mg tablet,delayed release (DR/EC) 81 mg PO .weekly calcium citrate-vitamin D3 [Calcium Citrate + D] 315 mg-5 mcg (200 unit) tablet 1 tab PO DAILY multivitamin [Daily Multi-Vitamin] Tablet 1 tab PO DAILY insulin glargine 100 unit/mL (3 mL) insulin pen 26 unit subcut BID acetaminophen 500 mg capsule 1,000 mg PO Q6H PRN (Reason: fever or pain) terazosin 10 mg capsule 10 mg PO BEDTIME Ozempic 1 mg/dose (4 mg/3 mL) pen injector 1 mg subcut QWEEK ferrous sulfate [iron] 325 mg (65 mg iron) tablet 325 mg PO DAILY sildenafil 100 mg tablet 100 mg PO Q24H PRN (Reason: sexual activity) tacrolimus 0.1 % ointment 1 applic TOPICAL Q12H PRN (Reason: skin irritation) Print Language: Citizen Of [place]
--- NOTE | 2024-05-07 17:04 | XR_ITS ---
The [address] [address] Patient Name: LEIGHTON ARCINIEGA MRN: [id number] date: 1945 Sex: M Assigned Patient Location: ER Current Patient Location: ED.MAIN Accession/Order Number: [id number] Exam Date: 05/07/2024 16:58 Report Date: 05/07/2024 17:58 At the request of: FREDI RADER Procedure: XR chest 1V EXAM: XR chest 1V HISTORY: Shortness of breath COMPARISON: Chest imaging 05/02/2024 and earlier including chest x-ray and CT TECHNIQUE: AP upright chest x-ray. FINDINGS: Diffuse bilateral airspace density progressive since 05/02/2024 with increasing areas of dense consolidation. Asymmetric with findings most prominent on the right most consistent with bilateral pneumonia. Cannot exclude a component of superimposed edema from failure. Cardiac enlargement unchanged. Pacemaker leads again noted. Questionable small pleural effusions. No pneumothorax. XR/XR chest 1V IMPRESSION: Progressive bilateral airspace density most consistent with bilateral pneumonia most extensive on the right. Cannot exclude component of superimposed edema from heart failure. Electronically authenticated by: AWILDA HELLER Date: 05/07/2024 17:58
[2024-05-07] MEDS: ALBUTEROL SULFATE 2.5 MG/3 ML VIAL NEB IH (17:10)
[2024-05-07 17:16] LABS: Hemoglobin 9.6 g/dL (14.0-18.0); Mean Corpuscular HGB Conc 34.3 g/dL (29.9-35.2); Mean Corpuscular Hemoglobin 32.5 pg (25.9-34.0); Mean Corpuscular Volume 94.9 fL (80.0-94.0); Mean Platelet Volume 8.4 fL (9.5-13.5); Platelet Count 139 10^3/uL (150-450); Red Blood Count 2.95 10^6/uL (4.70-6.10); Red Cell Distribution Width 15.9 % (11.0-15.0); White Blood Count 12.9 10^3/uL (4.0-11.0)
--- NOTE | 2024-05-07 17:17 | RESP.RT ---
87% on 3 lpm NC
[2024-05-07 17:19] LABS: PCO2 VBG 30.1 mmHg (40.0-52.0); pH VBG 7.448 (7.330-7.430)
[2024-05-07] MEDS: METHYLPREDNISOLONE SOD SUCC PF 125 MG/2 ML VIAL IVP (17:24)
[2024-05-07 17:30] LABS: Influenza Virus A Antigen Negative; Influenza Virus B Antigen Negative; Internal Control Within Normal Limits; SARS-CoV-2 Ag NEGATIVE (NEGATIVE)
[2024-05-07 17:33] LABS: INR 1.13; Prothrombin Time 11.8 sec (9.0-11.6); Segmented Neut Absolute Manual 11.99 10^3/uL (1.4-6.5)
[2024-05-07 17:34] LABS: Anisocytosis 1+; Ovalocytes 1+
[2024-05-07 17:35] LABS: Alanine Aminotransferase 29 U/L (16-63); Albumin Globulin Ratio 0.9; Albumin Level 2.6 g/dL (3.4-5.0); Alkaline Phosphatase 54 U/L (46-116); Anion Gap 13.4; Aspartate Amino Transferase 15 U/L (15-37); BUN Creatinine Ratio 32.8; Bilirubin Total 0.4 mg/dL (0.2-1.0); Calcium 8.7 mg/dL (8.5-10.1); Carbon Dioxide 24.1 mmol/L (21.0-32.0); Chloride 101 mmol/L (98-107); Estimated GFR (African America 30 (>=60 mL/min/1.73m^2); Estimated GFR (Non-African Ame 25 (>=60 mL/min/1.73m^2); Glucose 110 mg/dL (74-106); Potassium 4.5 mmol/L (3.5-5.1); Sodium 134 mmol/L (136-145); Total Protein 5.6 g/dL (6.4-8.2)
[2024-05-07 17:42] LABS: Troponin I High Sensitivity 54.4 pg/mL (4.0-76.1)
[2024-05-07 17:44] LABS: C Reactive Protein <0.50 mg/dL (<=0.50)
[2024-05-07 17:48] LABS: NT Pro B Type Natriuretic Pept >35000.0 pg/mL (<=1800.0)
[2024-05-07 17:49] LABS: Lactate/Lactic Acid 1.7 mmol/L (0.4-2.0)
[2024-05-07] MEDS: PIPERACILLIN SODIUM/TAZOBACTAM 4.5 GM in 0.9 % SODIUM CHLORIDE 50 ML IV (18:06)
[2024-05-07] MEDS: VANCOMYCIN HCL 1,500 MG in 0.9 % SODIUM CHLORIDE 500 ML 250 MG IV (18:46)
--- OUTSIDE RECORDS SUMMARY | 2024-05-07 19:03 | XMS_ITS | CCD ---
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 Name Role Phone Andrea Espinoza Unavailable [...] Provider Lori Medina MD Primary Care Provider [phone] BLANCA ALONSO Attending Unavailable BLANCA ALONSO Attending Unavailable DANK JONES Attending Unavailable BLANCA ALONSO Attending Unavailable BLANCA ALONSO Attending Unavailable BOBO BRENNER Attending Unavailable LORI MEDINA Primary Care Unavailable LORI MEDINA Primary Care Unavailable BEATA DEGROOT Attending Unavailable Andrea Espinoza DO Primary Care Provider [phone] VARGHESE CALA P Attending Unavailable AFUA VARGHESE P Referring [...] Enalapril; 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: [enalapril] Drug Allergy 02-10-20 Cough [facility] (18 sources) Metoprolol; 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: [metoprolol] Drug Allergy 10-12-19 23 Cough, Unknown -[facility]-[place] y 250 DO Work Phone: (4 sources) Fosinopril; 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: [Monopril] Drug Allergy 03-16-20 14 [facility] Repository (1 source) Metoprolol Drug Allergy 05-16-19 15 [facility] Repository (1 source) strawberry allergenic extract Drug Allergy 05-16-19 15 [facility] Repository (1 source) tomato allergenic extract Drug Allergy 05-16-19 15 [facility] Repository (6 sources) Fosinopril; 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: [FOSINOPRIL] Drug Allergy 10-12-19 23 Unknown [facility] Work Phone: (3 sources) hydroCHLOROthiazide / Metoprolol; 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: [hydrochlorothiazide-m etoprolol] Drug Allergy [facility] Repository (3 sources) [place]; 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: [Strawberries] Food allergy (disorder) [facility] Rep[facility] (3 sources) Tomatoes; 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: [Tomatoes] Food allergy (disorder) [facility] Repository Medications Current Medications Medication Drug [...] Start: 03-20-2020 take 2 tablets [facility] daily hydrALAZINE HCl - [...] sources) Polyene Antifungal Start: 08-10-2023 nystatin (Mycostatin) 228681 UNIT/GM powder Indications: Erythema intertrigo Apply to [...] disease (2 sources) 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 [address]- 2024 11:00 AM EDT With: Where: [facility] You Need to Schedule the Following Appointments Follow Up with Mica Car MD, URL, URO When: Where: Medications What How Much When Instructions New finasteride (finasteride 5 mg Tab) 1 Tablets By Mouth Every day Refills: 11 Pickup at [facility] #[id number] Unchanged terazosin (terazosin 10 mg Cap) 1 [...] 3 (more content not included)... Normal [facility] Urology Office/Clinic Noteon 04-26-2024 Urology Office/Clinic [...] unspecified) Pt states he was admitted at [facility] x 4 days due to PNA, Gomez removed and discharged 04/08/24. Pt states he presented back to [facility] ER due to UR. Gomez placed, PVR [...] 80 g) S/p Rezum by [facility] 02/14/24 - 9 treatments, Rt side did [...] further bleeding since then. Pt went to [place] ER 02/26/24 d/t persistent dysuria. Admitted for 3 days. Received IV abx. Dc'd on Cipro x 10d and Levsin. Urine and blood cx both came back neg. [facility] ER 04/08/24 U.Cx was negative. Pt had an infection at the time of him being admitted in the hospital, is currently on abx. Advised pt to continue to abx that was given at the time of the ER visit. Started on Levaquin 500mg qd x3 wks 04/12/24. -Complete ATB course -See #3 5. 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 Elevated risk [...] (diabetes (more content not included)... Normal [facility] Comment on above: Result Comment: Elec [...] AM EST With: Where: [facility] [address] [place] [address] [place] [address]- Wednesday 1:00 PM EST With: Mica Car MD Where: [facility] [address] [address]- 2024 11:00 AM EDT With: Where: [facility] You Need to Schedule the Following Appointments Follow Up with Mica Car MD, URL, URO When: In 1 month Comments: w/PVR Where: Medications What How Much When Instructions New levofloxacin (Levaquin 500 mg Tab) 1 Tablets By Mouth Every 24 hours Duration: 3 Weeks Pickup at [facility] #[id number] Unchanged acetaminophen (Tylenol Extra Strength 500 mg [...] time (more content not included)... Normal [facility] Urology Office/Clinic Noteon 04-12-2024 Urology Office/Clinic Note Urology Office/Clinic Note Chief Complaint 1 mth f/u HPI Staff 78yr old male pt here for 1mo f/u with PVR. S/p Cystoscopy, TRUS 01/27/2024, Rezume done on 02/14/24 w/ Dr. Car. Previous Dx: uti, BPH with urinary obstruction, anticoagulated *terazosin 10 mg qd, sildenafil 100mg PRN pt has Gomez. Pt states he was in [facility] for 4 days for pneumonia, Wednesday he was released and Gomez was taken out. Pt then states he could not urinate so he went back to [facility] and they placed the Gomez. History of [...] has Gomez. Pt states he was in [facility] for 4 days for pneumonia, Wednesday he was released and Gomez was taken out. Pt then states he could not urinate so he went back to [facility] and they placed the Gomez, PVR at [...] further bleeding since then. Pt went to [place] ER 02/26/24 d/t persistent dysuria. Admitted for 3 days. Received IV abx. Dc'd on Cipro x 10d and Levsin. Urine and blood cx both came back neg. [facility] ER 04/08/24 U.Cx was negative. Pt had [...] stoppe (more content not included)... Normal [facility] Comment on above: Result Comment: Elec tronically Signed By: Mica Car MD\.br\Date and Time Signed: 04/12/24 12:07 EST\.br\Electronically Co-Signed By: Kavita Mukherjee\.br\Date and Time Co-Signed: 04/12/24 11:48 EST Urine Cultureon 03-28-2024 Bacteria identified Cx Nom (U) No Growth 2 Days PERFORMED BY: [place] [address] PATHOLOGIST SUPERVISOR FITTING OSCAR ESCOBAR M.D. Normal [facility] Comment on above: Performed By: #### C UU #### [address] C Urineon 03-26-2024 Bacteria identified Cx [...] Locations R1: This test was performed at: [facility], [address] [place] [address], [address]- , [place], [facility] Comment on above: Performed By: #### 2 [id number] #### [facility] [address] [place] [address] Main OR Preoperative Recordo n 03-20-2024 Main OR Preoperative Record Main OR Preoperative Record Holding Area Document Type FTURO Summary Primary Physician: Mica Car MD Finalized Date/Time: 03/20/24 16:29:34 Pt. Name: LEIGHTON ARCINIEGA /Sex: 1945 Male Med Rec #: [id number] Physician: Mica Car MD Financial #: [id number] Pt. Type: O Room/Bed: / Admit/Disch: 12/27/23 [...] Complaints of Pain: No Skin Integrity Intact, [place], Warm, & Dry Vitals - EU Blood Pressure 122/75 Pulse 81 bpm Respirations 18 br/min SPO2 96 % Additional None RN Reviewed Yes Specimens Collected Last Modified By: Ankita Gray RN 12/27/23 11:25:48 Finalized By: MICHELLE Mraks RN, Ruthann Document Signatures Signed By: Latha David LPN 12/27/23 11:01 Latha David LPN 12/27/23 11:02 Kendrick GODINEZ, Dalia MARTINEZ 03/20/24 16:29 Normal [facility] Urine Cultureon 03-11-2024 Bacteria identified Cx Nom (U) ORGANISM: Prudence glabrata (O:CANGLA) [place] Count 75,000 PERFORMED BY: [facility] [address] [id number] PATHOLOGIST SUPERVISOR FITTING OSCAR ESCOBAR M.D. Normal [facility] Comment on above: Performed By: #### C UU #### [facility] [address] [place], [place] [id number] [facility] Urine cultureOrdered By: Derek Vasquez on 03-11-2024 Bacteria identified Cx Nom (U) Abnormal [facility] Urology Office/Clinic Noteon 03-02-2024 Urology Office/Clinic [...] that he had 3 day stay at [facility] on 02/26/24 for severe UTI & bladder [...] further bleeding since then. Pt went to [place] ER 02/26/24 d/t persistent dysuria. Admitted for [...] 124ml Told him to continue Alfuzosin. Ordered: [id number] Measure Post Void residual urine and/or bladder [...] Urnls Dip Stick Auto w/o Microscopy POC 78502 3. Anticoagulated (Z79.01: [facility] (current) use of anticoagulants) on Eliquis. Follow-up [...] Inco (more content not included)... Normal [facility] Comment on above: Result Comment: Elec tronically Signed By: NATA AT PA-C.br\Date and Time Signed: 03/02/24 17:13 EST\.br\Electronically Co-Signed By: Martir Sheabr\Date and Time Co-Signed: 03/02/24 13:38 EST ECG 12 Leadon 03-01-2024 AV paced rhythm [facility] Work Phone: URINE CULTUREon 02-19-2024 Bacteria identified Cx Nom (U) CULTURE RESULTS 10-50,000 ORGANISMS/mL NORMAL UROGENITAL ELIN Normal [facility] Comment on above: Performed By: #### 6 30-4 #### [facility] ([id number]) [address] [place] [address], [address] [place] [address] URN MACROSCOPIC NURon 2023 BILIRUBIN LETHA Negative Normal NEG [facility] Comment on above: Performed By: #### N UM #### [facility] ([id number]) [address] [place] [address] BLOOD/HGB LETHA Large Abnormal NEG [facility] Comment on above: Performed By: #### N UM #### [facility] ([id number]) [address] [place] [address] GLUCOSE LETHA >=1000 Abnormal NEG [facility] Comment on above: Performed By: #### N UM #### [facility] ([id number]) [address] [place] [address] KETONES LETHA Negative Normal NEG [facility] Comment on above: Performed By: #### N UM #### [facility] ([id number]) [address] [place] [address] 86725 LEUKOCYTE ESTERASE LETHA Small Abnormal NEG [facility] Comment on above: Performed By: #### N UM #### [facility] ([id number]) [address] [place] [address] NITRITE LETHA Negative Normal NEG [facility] Comment on above: Performed By: #### N UM #### [facility] ([id number]) [address] [place] [address] PH LETHA 6.0 Normal 5.0-8.5 [facility] Comment on above: Performed By: #### N UM #### [facility] ([id number]) [address] [place] [address] PROTEIN LETHA 100 mg/dL Abnormal NEG [facility] Comment on above: Performed By: #### N UM #### [facility] ([id number]) [address] [place] [address] SPECIFIC GRAVITY LETHA 1.015 Normal 1.003-1.035 [facility] Comment on above: Performed By: #### N UM #### [facility] ([id number]) [address] [place] [address] UROBILINOGEN LETHA 0.2 eu/dL Normal <1.1 [facility] Comment on above: Performed By: #### N UM #### [facility] ([id number]) [address] [place] [address] Inpatient Patient Summaryon 02-14-2024 Inpatient Patient Summary Inpatient Patient Summary [address] [address] Clinical Summary Person Information Name: LEIGHTON ARCINIEGA Age: 78 Years : 1945 Sex: Male PCP: Lori Medina MD Marital Status: Race: White Ethnicity: Non- or Language: Brazilian Visit Id: Visit Reason: BPH WITH URINARY OBSTRUCTION Speciality: Acuity: Enc Type: Outpatient Med Service: Surgery Arrival: 02/14/2024 09:35:51 Discharge: Dispo Type: Address: [address] [place] [address] [address]ONE[address] [place] [phone] Provider Notes: Diagnosis: BPH with obstruction/lower urinary [...] day as needed for pain. acetaminophen-hydroc odone (Shiloh 325 mg-5 mg oral tablet) 1 Tablets [...] Information: EU - Rezum Discharge Instructions (CUSTOM) [facility] Main OR Intraoperative Recor don 02-14-2024 Main OR Intraoperative Record Main OR Intraoperative Record IntraOp Document Type FTURO Summary Primary Physician: Mica Car MD Finalized Date/Time: 02/14/24 12:08:58 Pt. Name: LEIGHTON ARCINIEGA/Sex: 1945 Male Med Rec #: [id number] Physician: Mica Car MD Financial #: [id number] Pt. Type: O Room/Bed: / Admit/Disch: 02/14/24 [...] Kimberly A Role Performed Surgeon - Primary Music Director - Primary Scrub - Primary Time In [...] Corral 02/14/24 12:08 Jocy Corral 02/14/24 12:08 [facility] Main OR Preoperative Recordo n 02-14-2024 Main OR Preoperative Record Main OR Preoperative Record Holding Area Document Type FTURO Summary Primary Physician: Mica Car MD Finalized Date/Time: 02/14/24 11:48:27 Pt. Name: LEIGHTON ARCINIEGA /Sex: 1945 Male Med Rec #: [id number] Physician: Mica Car MD Financial #: [id number] Pt. Type: O Room/Bed: / Admit/Disch: 02/14/24 [...] Complaints of Pain: No Skin Integrity Intact, [place], Warm, & Dry Vitals - EU Blood Pressure 152/74 Pulse 61 bpm Respirations 18 br/min SPO2 97 % Additional None RN Reviewed Yes Specimens Collected Last Modified By: Jocy Corral 02/14/24 11:48:23 Finalized By: Jocy Corral Document Signatures Signed By: Latha David LPN 02/14/24 11:05 Jocy Corral 02/14/24 11:48 Jocy Corral 02/14/24 11:48 Normal [facility] Operative Reporton Operative Report Operative Report [...] Follow-up in 1 month PVR.. Normal [facility] Comment on above: Result Comment: Elec tronically Signed By: Josep SANDHU, Mica Johns\.br\Date and Time Signed: 02/14/24 12:03 EST Outpatient Surgery Discharge Instructionon 02-14-2024 Outpatient Surgery Discharge Instruction Outpatient Surgery Discharge Instruction [place] [id number] Patient Discharge Instructions PERSON INFORMATION Name: LEIGHTON [...] there (more content not included)... Normal [facility] Ambulatory Visit Summaryon 1 04-01-2023 [...] Strength 500 mg oral tablet) acetaminophen-hydroc odone (Shiloh 325 mg-5 mg oral tablet) allopurinol (allopurinol [...] if questions or concerns Unchanged acetaminophen-hydroc odone (Shiloh 325 mg-5 mg oral tablet) 1 Tablets [...] (omep (more content not included)... Normal [facility] Urology Office/Clinic Noteon 01-31-2024 Urology Office/Clinic Note Urology Office/Clinic Note Chief [facility] Staff 78 year old male patient presents today for a [facility] ER follow up 01/23/24. Pt has gomez. [...] with voice recognition artificial intelligence software, specifically [employer], [employer] and or Re[employer]yes 3D. 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 Denies [...] medic (more content not included)... Normal [facility] Comment on above: Result Comment: Elec tronically Signed By: MICHAEL Sr APRN, Anna Herrera\.br\Date and Time Signed: 01/31/24 16:26 EST URINE CULTUREon 01-24-2024 Bacteria identified Cx Nom (U) CULTURE RESULTS NO GROWTH AT <1000 CFU/mL Normal [facility] Comment on above: Performed By: #### 6 30-4 #### [facility] ([id number]) [address] [place] [address], [address] [place] [address] URN MACROSCOPIC NURon 2023 BILIRUBIN LETHA Negative Normal NEG [facility] Comment on above: Performed By: #### N UM #### [facility] ([id number]) [address] [place] [address] BLOOD/HGB LETHA Trace Abnormal NEG [facility] Comment on above: Performed By: #### N UM #### [facility] ([id number]) [address] [place] [address] GLUCOSE LETHA >=1000 Abnormal NEG [facility] Comment on above: Performed By: #### N UM #### [facility] ([id number]) [address] [place] [address] KETONES LETHA Negative Normal NEG [facility] Comment on above: Performed By: #### N UM #### [facility] ([id number]) [address] [place] [address] LEUKOCYTE ESTERASE LETHA Large Abnormal NEG [facility] Comment on above: Performed By: #### N UM #### [facility] ([id number]) [address] [place] [address] NITRITE LETHA Negative Normal NEG [facility] Comment on above: Performed By: #### N UM #### [facility] ([id number]) [address] [place] [address] 17024 PH LETHA 6.0 Normal 5.0-8.5 [facility] Comment on above: Performed By: #### N UM #### [facility] ([id number]) [address] [place] [address]607 PROTEIN LETHA 100 mg/dL Abnormal NEG [facility] Comment on above: Performed By: #### N UM #### [facility] ([id number]) [address] [place] [address] SPECIFIC GRAVITY LETHA 1.015 Normal 1.003-1.035 [facility] Comment on above: Performed By: #### N UM #### [facility] ([id number]) [address] [place] [address] [place] [address] UROBILINOGEN LETHA 0.2 eu/dL Normal <1.1 [facility] Comment on above: Performed By: #### N UM #### [facility] ([id number]) [address] [place] [address] Inpatient Patient Summaryon 12-27-2023 Inpatient Patient Summary Inpatient Patient Summary [address] [address] Clinical Summary Person Information Name: LEIGHTON ARCINIEGA Age: 78 Years : 1945 Sex: Male PCP: Lori Medina MD Marital Status: Race: White Ethnicity: Non- or Language: Brazilian Visit Id: Visit Reason: BPH WITH URINARY OBSTRUCTION Speciality: Acuity: Enc Type: Outpatient Med Service: Surgery Arrival: 12/27/2023 09:33:05 Discharge: Dispo Type: Address: [facility] [address]ONEY [address] [facility] [id number] Provider Notes: Diagnosis: Anticoagulated; Other obstructive and [...] day as needed for pain. acetaminophen-hydroc odone (Shiloh 325 mg-5 mg oral tablet) 1 Tablets [...] Information: EU - Cystoscopy Discharge Instructions (CUSTOM) [facility] Main OR Intraoperative Recor don 12-27-2023 Main OR Intraoperative Record Main OR Intraoperative Record IntraOp Document Type FTURO Summary Primary Physician: Mica Car MD Finalized Date/Time: 12/27/23 11:42:38 Pt. Name: SUZE LEIGHTONMARTÍNEZ [place]/Sex: 1945 Male Med Rec #: [id number] Physician: Mica Car MD Financial #: [id number] Pt. Type: O Room/Bed: / Admit/Disch: 12/27/23 [...] Micky Vargas Role Performed Surgeon - Primary Music Director - Primary Scrub - Primary Time In [...] Ankita Gray RN 12/27/23 11:42 Normal [facility] Operative Reporton Operative Report Operative Report Patient: LEIGHTON ARCINIEGA Age: 78 years Sex: Male : 1945 Associated Diagnoses: None Author: Mica Car MD Procedure Operative Information Details: Date/ Time: 12/27/2023 12:10:00. Pre-Op Dx: BPH w/ LUTS - N40.1. Post-Op Dx: Feeling of incomplete bladder emptying ([id number] R39.14, Working, Medical), Anticoagulated (NTE97-AA Z79.01, Discharge, Medical), Same. Anesthesia Type: Local. [...] and Valium prior to procedure. Will need compactor driver. -Will need blood thinners held prior to procedure. Elevated risk of bleeding discussed. -Patient did better on terazosin. Will DC tamsulosin and restart terazosin 10 mg daily. [facility] [place] Normal [facility] Comment on above: Result Comment: Elec tronically Signed By: Josep SANDHU, Mica Johns\.br\Date and Time Signed: 12/27/23 12:14 EDT Outpatient Surgery Discharge Instructionon 12-27-2023 Outpatient Surgery Discharge Instruction Outpatient Surgery Discharge Instruction [place] [id number] Patient Discharge Instructions PERSON INFORMATION Name: LEIGHTON [...] Mica Car Comments: Office to schedule [facility] Type Location Start Finish State NCV [...] to serve you. Thank you for choosing [facility] Normal [facility] Ambulatory Visit Summaryon 0 11-12-2023 Ambulatory [...] Strength 500 mg oral tablet) acetaminophen-hydroc odone (Shiloh 325 mg-5 mg oral tablet) allopurinol (allopurinol [...] if questions or concerns Unchanged acetaminophen-hydroc odone (Shiloh 325 mg-5 mg oral tablet) 1 Tablets [...] E (more content not included)... Normal [facility] Urology Office/Clinic Noteon 11-12-2023 Urology Office/Clinic [...] (N52.9: Male erectile dysfunction, unspecified) Hx of [place] in 2002. Has pacemaker in place. Denies [...] [1] Follow-up With When Contact Information Josep SADNHU, Mica Johns, URAmanda, URO Additional Instructions: schedule [...] Seborr (more content not included)... Normal [facility] Comment on above: Result Comment: Elec tronically Signed By: Mica Car MD\.br\Date and Time Signed: 11/12/23 16:43 EDT\.br\Electronically Co-Signed By: Maria Luz Mejia\.br\Date and Time Co-Signed: 11/12/23 16:14 EDT PTH Intacton 10-15-2023 Parathyrin.intact [Mass/Vol] 49 pg/mL Invalid Interpretation Code 15-65 [facility] Comment on above: Result Comment: Perf ormed at: [facility] [address] [id number] PhD Carlos Singh Performed By: #### 1 [id number] #### [facility] [address] [place] [address] ED Clinical Summaryon 2023 ED Clinical Summary ED Clinical Summary [address] [address] ED Clinical Summary Person Information Name: LEIGHTON ARCINIEGA Yaa/[facility] Age: 77 Years : 1945 Sex: Male Language: Brazilian PCP: Lori Medina MD Marital Status: Visit [...] 10/14/2023 13:18:55 10/14/2023 13:18:55 ADDRESS: Danie TONEY [address] [place] [phone] PHYS DOC NOTES: MEDICAL INFORMATION: Prescriptions Given: New Medications [id number], [address] [place], [place] [id number], [phone] acetaminophen-hydroc odone (Shiloh 325 mg-5 mg oral tablet) 1 Tablets [...] EDUCATION INFORMATION: Instructions: Acute Knee Pain, Adult, [id number] Follow up: With: Address: When: Andrea [address] [address] [place] [address] Business (1) In 3 days 10/17/2023 With: Address: When: Call to schedule a follow-up appointment with your orthopedic surgeon. Use the Shiloh as needed for pain along with icing. . If you are unable to get in with your orthopedic surgeon, I have provided a referral for another one. In 3 days 10/17/2023 With: Address: When: Lori Medina [facility] [address] Business (1) In 3 days DIAGNOSIS: Posterior left knee pain Normal [facility] ED Note-Physicianon 10-14-19 ED Note-Physician ED [...] previously saw an orthopedic surgeon in [facility] for arthritis in which he will follow-up for further management of care. Patient is on Eliquis therefore I cannot prescribe him naproxen or any form of NSAID. Due to his age I did not feel a muscle relaxer was appropriate either. Based on this he is being prescribed 4 doses of Shiloh. He was educated on appropriate use of [...] q4hr for pain, 4 tab(s), Refill(s) 0, [id number], 177, cm, 10/14/23 11:44:00 EDT, Height/Length Dosing, 104.8, kg, 10/14/23 11:44:00 EDT, Weight Dosing Disposition Plan Patient Discharge Condition stable Discharge Disposition home Discharge Prescription List Prescriptions Shiloh 325 mg-5 mg oral tablet, 1 tab(s), Oral, q4hr, PRN Follow-up With When Contact Information Andrea Espana In 3 days 10/17/2023 EDT [address] [place] [address]- Business (1) Additional Instructions: Call to schedule a follow-up appointment with your orthopedic surgeon. Use the Shiloh as needed for pain along with icing. . If you are unable to get in with your orthopedic surgeon, I have provided a referral for another one. In 3 days 10/17/2023 EDT Additional Instructions: Lori Medina In [address] [facility] [place] [address]- Business (1) Additional Instructions: Patient Education Acute Knee Pain, Adult, [id number] Attestation Patient seen and evaluated by the physician assistant professor of forestry. Attending physician was present in the emergency department and supervised care. This visit was performed by both the physician and an APC. I performed all aspects of the MDM as documented. This report was transcribed using voice recognition software. Every effort was made to ensure accuracy, however, inadvertently computerized doggy daycare activities director mistakes may be present. Appropriate healthcare PPE was used in evaluating this patient. The patient was placed in a mask. The healthcare provider was wearing mask, gloves, and utiliz (more content not included)... Normal [facility] Comment on above: Result Comment: Elec tronically Signed By: Vini Quinteros DO\.br\Date and Time Signed: 10/14/23 16:09 EDT\.br\Electronically Co-Signed By: Nayla William PA-C\.br\Date and Time Co-Signed: 10/14/23 13:46 EDT ED Patient Summaryon 024 ED Patient Summary ED Patient Summary [facility] [address], [place] [address] Patient Discharge Instructions Person Information Name: LEIGHTON ARCINIEGA Age: 77 Years Arrival Date: 10/14/2023 11:36:13 Discharge Diagnosis: Posterior left knee pain Primary Care Physician: Lori Medina MD Provider Information Primary Provider: Vini Quinteros DO Advanced Packing Line Worker:Nayla William PA-C The exam and treatment you received in the Emergency Department were for an urgent problem and are not intended as complete care. It is important that you follow up with a doctor, nurse practitioner, or physician?s assistant professor of forestry for ongoing care. If your symptoms become [...] Follow-up Instructions: With: Address: When: Andrea Espana [address] [place] [address] Business (1) In 3 days 10/17/2023 With: Address: When: Call to schedule a follow-up appointment with your orthopedic surgeon. Use the [place] as needed for pain along with icing. . If you are unable to get in with your orthopedic surgeon, I have provided a referral for another one. In 3 days 10/17/2023 With: Address: When: Lori Medina [address] [facility] [address] Business (1) In 3 days In the event that this physician does not participate in your insurance network, please consult with your insurance company to find a nearby participating provider. Patient Education Materials: Acute Knee Pain, Adult, Flcb-cv-Qryr A MESSAGE TO ALL PATIENTS REGARDING OPIOIDS PRESCRIPTION OPIOIDS: WHAT YOU NEED TO KNOW Prescription opioids can be used to help relieve mpjklejh-pr-yqqphe pain and are often prescribed following a [...] yo (more content not included)... Normal [facility] XR Knee Complete 4+ Views Le [...] = na DAP = na Normal [facility] 06-17-2023 Screens [id number] #1.00TIFF Normal [facility] Screens [id number] #1.00TIFF Normal [facility] Ambulatory Visit Summaryon 0 06-16-2023 Ambulatory [...] Mica Johns Where: [facility] Patient Educationon 06-16-19 24 Patient Education [...] these instructions at home: Medicines ? Take gcpo-jov-lsmvbfg and prescription medicines only as told by [...] cig (more content not included)... 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 Denies [...] Information Josep SANDHU, Mica Johns, URL, [facility] [address] [place] [phone] Additional Instructions: Has f/u already scheduled 11/12/23 [...] Co-Signed: 06/16/23 10:48 EDT [place] 05-10-2023 Screens [id number] #1.00TIFF [facility] Screens [id number] #1.00TIFF [facility] Ambulatory Visit Summaryon 0 05-07-2023 [...] NATA TA PA-C Where: [facility] Normal [address] [address]- \.br\ You Need to Schedule the Following Appointments\.br\ Follow Up with NATA TA PA-C, URL When: \.br\ Comments:\.br\ 1 mos w/ PVR \.br\ Where:\.br\ [address]br\ [place] [address]\.br\ [id number]\.br\ Medications\.br\ What How Much When Instructions\.br\ New tadalafil (tadalafil 10 mg Tab) 1 Tablets By Mouth As Directed as needed for for erectile dysfunction Refills: 3 Take one tab 1 hour prior to sexual activity. Do not exceed 20mg in 48hrs. Pickup at [id number]\.br\ New tamsulosin (tamsulosin 0.4 mg Cap) 1 Capsules By Mouth Once a day (in the evening) Refills: 11 Pickup at [id number]\.br\ Unchanged acetaminophen (Tylenol Extra Strength 500 mg [...] or concerns \.br\ Pharmacy Information\.br\ [id number]: [address] [place], [place] [id number] [phone]\.br\ Allergies\.br\ Monopril (Dry cough)\.br\ Strawberries (rash)\.br\ Tomatoes [...] of this condition include:\.br\ ? \ [facility] Ambulatory Visit Summary LEIGHTON ARCINIEGA :1945 [...] med) Where: [address], [place] [phone] Medications What How Much When Instructions Unchanged [...] da (more content not included)... Normal [facility] Patient Educationon 05-07-19 Patient Education Urology [...] these instructions at home: Medicines ? Take mbpx-eur-tefqwfr and prescription medicines only as told by [...] cig (more content not included)... 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 AMANDA [...] Information Josep SANDHU, Mica Johns, URL, [facility] [address], [place] [phone] Additional Instructions: 1 mos w/ PVR Patient Education Erectile Dysfunction Kriss Heredia, personally scribed for Dr. Car on 05/07/2023 15:06:02. . Documentation recorded by the scribe, Kriss Frankel, accurately reflects the services(s) I performed and decisions made by me. Authenticated by Dr. Car on 05/07/2023 16:05:51. Problem List/Past Medical History Ongoing Anticoagulated Arthritis Aspirin marshall (more content not included)... Normal [facility] Comment on above: Result Comment: Elec [...] Weight Tips; Status:Complete - Retrospective Authorization; Done: [id number] Some eating tips that can help you lose weight.; Status:Complete - Retrospective Authorization; Done: [id number] Essential hypertension Renew: Carvedilol 6.25 MG Oral Tablet; Take 1 tablet twice daily Hyperlipidemia Renew: Simvastatin 20 MG Oral Tablet; TAKE 0.5 TABLET Bedtime SocHx: Former smoker Tobacco Use Screening; Status:Complete; Done: [id number] Patient Instructions Please bring all medicines, vitamins, [...] education sheet. 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 Surgical [...] negative for complaint. Vitals Vital Signs Recorded: [id number] 10: (more content not included)... Normal [facility] Tobacco Screening.on 023 Adult depression screening assessment No [facility] 600 DO Work Phone: Fall risk assessment b) One or more falls in the last year [facility] 600 DO Work Phone: Tobacco use status CPHS b) No [facility] 600 DO Work Phone: CBC AUTO DIFFon 05-28-2022 BASO # 0.0 103/ul Normal 0.0-0.1 [facility] Comment on above: Performed By: #### C BC #### [facility] [address] [place] [address] Dr. Susie Hale Basophils/100 WBC (Bld) 0.5 % Normal 0.2-2.0 [facility] Comment on above: Performed By: #### C BC #### [facility] [address] [place] [address] Dr. Susie Hale EO # 0.1 103/ul Normal 0.0-0.7 [facility] Comment on above: Performed By: #### C BC #### [facility] [address] [place] [address] Dr. Susie Hale Eosinophils/100 WBC (Bld) 1.8 % Normal 0.9-7.0 [facility] Comment on above: Performed By: #### C BC #### [facility] [address] [place] [address] Dr. Susie Hale Erythrocyte distribution width (RBC) [Ratio] 13.0 % Normal 11.0-15.0 [facility] Comment on above: Performed By: #### C BC #### [facility] [address] [place] [address] Dr. Susie Hale Hematocrit (Bld) [Volume fraction] 35.0 % Critically low 42.0-54.0 [facility] Comment on above: Performed By: #### C BC #### [facility] [address] [address] [address] Susie Hale Hemoglobin (Bld) [Mass/Vol] 12.2 g/dL Critically low 14.0-18.0 [facility] Comment on above: Performed By: #### C BC #### [facility] [address] [address] [address] Susie Hale IG # 0.05 10e3/ul Critically high 0.00-0.03 [facility] Comment on above: Performed By: #### C BC #### [facility] [address] [address] [address] Susie Hale IG % 0.8 % Critically high 0.0-0.5 [facility] Comment on above: Performed By: #### C BC #### [facility] [address] [address] [address] Susie Hale LYMPH # 1.9 103/ul Normal 1.2-3.8 [facility] Comment on above: Performed By: #### C BC #### [facility] [address] [address] [address] Susie Hale Lymphocytes/100 WBC (Bld) 28.7 % Normal 20.5-60.0 [facility] Comment on above: Performed By: #### C BC #### [facility] [address] [place] [address] Dr. Susie Hale MANUAL DIFF REQ NO Normal [facility] Comment on above: Performed By: #### C BC #### [facility] [address] [address] [address] Susie Hale MCH (RBC) [Entitic mass] 32.1 pg Normal 25.9-34.0 [facility] Comment on above: Performed By: #### C BC #### [facility] [address] [address] [address] Susie Hale MCHC (RBC) [Mass/Vol] 34.9 g/dL Normal 29.9-35.2 [facility] Comment on above: Performed By: #### C BC #### [facility] [address] [address] [address] Susie Hale MCV (RBC) [Entitic vol] 92.1 fL Normal 80.0-94.0 [facility] Comment on above: Performed By: #### C BC #### [facility] [address] [place] [address] Dr. Susie Hale MONO # 0.7 103/ul Normal 0.3-0.8 [facility] Comment on above: Performed By: #### C BC #### [facility] [address] [place] [address] Dr. Susie Hale Monocytes/100 WBC (Bld) 10.9 % Normal 1.7-12.0 [facility] Comment on above: Performed By: #### C BC #### [facility] [address] [place] [address] Dr. Susie Hale NEUT # 3.7 103/ul Normal 1.4-6.5 [facility] Comment on above: Performed By: #### C BC #### [facility] [address] [place] [address] Dr. Susie Hale Neutrophils/100 WBC (Bld) 57.3 % Normal 43.0-75.0 [facility] Comment on above: Performed By: #### C BC #### [facility] [address] [place] [address] Dr. Susie Hale Platelet mean volume (Bld) [Entitic vol] 8.5 fL Critically low 9.5-13.5 [facility] Comment on above: Performed By: #### C BC #### [facility] [address] [place] [address] Dr. Susie Hale PLT 238 103/ul Normal 150-450 [facility] Comment on above: Performed By: #### C BC #### [facility] [address] [place], [place] [address] Dr. Susie Hale RBC 3.80 106/ul Critically low 4.70-6.10 [facility] Comment on above: Performed By: #### C BC #### [facility] [address] [place], [place] [address] Dr. Susie Hale WBC 6.5 103/ul Normal 4.0-11.0 [facility] Comment on above: Performed By: #### C BC #### [facility] [address] STROKE HEAD WOon [...] MAILE CANO Date: 2022-05-28 18:17 Normal [facility] PROF 14(COMP METB)on 023 Albumin [Mass/Vol] 3.5 g/dL Normal 3.4-5.0 [facility] Comment on above: Performed By: #### C MP #### [facility] [address], [place] [address] Dr. Susie Hale Albumin/Globulin [Mass ratio] 1.1 {ratio} Normal [facility] Comment on above: Performed By: #### C MP #### [facility] [address], [place] [address] Dr. Susie Hale ALP [Catalytic activity/Vol] 87 U/L Normal 46-116 [facility] Comment on above: Performed By: #### C MP #### [facility] [address] [address] [address] Susie Hale ALT [Catalytic activity/Vol] 16 U/L Normal 16-63 [facility] Comment on above: Performed By: #### C MP #### [facility] [address] [address] [address] Susie Hale Anion gap [Moles/Vol] 10.0 mmol/L Normal [facility] Comment on above: Performed By: #### C MP #### [facility] [address] [address] [address] Susie Hale AST [Catalytic activity/Vol] 14 U/L Critically low 15-37 [facility] Comment on above: Performed By: #### C MP #### [facility] [address] [place] [address] Dr. Susie Hale Bilirubin [Mass/Vol] 0.2 mg/dL Normal 0.2-1.0 [facility] Comment on above: Performed By: #### C MP #### [facility] [address] [address] [address] Susie Hale Calcium [Mass/Vol] 8.9 mg/dL Normal 8.5-10.1 [facility] Comment on above: Performed By: #### C MP #### [facility] [address] [address] [address] Susie Hale Chloride [Moles/Vol] 105 mmol/L Normal 98-107 [facility] Comment on above: Performed By: #### C MP #### [facility] [address] [address] [address] Susie Hale CO2 [Moles/Vol] 25.7 mmol/L Normal 21.0-32.0 [facility] Comment on above: Performed By: #### C MP #### [facility] [address] [address] [address] Susie Hale Creatinine [Mass/Vol] 1.87 mg/dL Critically high 0.70-1.30 [facility] Comment on above: Performed By: #### C MP #### [facility] [address] [address] [address] Susie Hale EGFR-AF PAPUA NEW GUINEAN 43 mL/min/1.73m2 Critically low >=60 [facility] Comment on above: Performed By: #### C MP #### [facility] [address] [address] [address] Susie Hale EGFR-NON AF PAPUA NEW GUINEAN 35 mL/min/1.73m2 Critically low >=60 [facility] Comment on above: Performed By: #### C MP #### [facility] [address] [address] [address] Susie Hale Globulin (S) [Mass/Vol] 3.2 g/dL Normal [facility] Comment on above: Performed By: #### C MP #### [facility] [address] [address] [address] Susie Hale Glucose [Mass/Vol] 256 mg/dL Critically high 74-106 [facility] Comment on above: Performed By: #### C MP #### [facility] [address] [address] [address] Susie Hale Potassium [Moles/Vol] 3.7 mmol/L Normal 3.5-5.1 [facility] Comment on above: Performed By: #### C MP #### [facility] [address] [address] [address] Susie Hale Protein [Mass/Vol] 6.7 g/dL Normal 6.4-8.2 [facility] Comment on above: Performed By: #### C MP #### [facility] [address] [address] [address] Susie Hale Sodium [Moles/Vol] 137 mmol/L Normal 136-145 [facility] Comment on above: Performed By: #### C MP #### [facility] [address] [address] [address] Susie Hale Urea nitrogen [Mass/Vol] 22.0 mg/dL Critically high 7.0-18.0 [facility] Comment on above: Performed By: #### C MP #### [facility] [address], [place] [address] Dr. Susie Hale Urea nitrogen/Creatinin e [Mass ratio] 11.8 mg/mg Normal [facility] Comment on above: Performed By: #### C SARA #### [facility] [address], [place] [address] Dr. Susie Hale Office Visit (Cardiology)on 12-16-2021 [...] in adult Healthy Weight Tips; Status:Complete; Done: [id number] Some eating tips that can help you lose weight.; Status:Complete; Done: [id number] Essential hypertension Renew: Carvedilol 6.25 MG Oral Tablet; Take 1 tablet twice daily Hyperlipidemia Renew: Simvastatin 20 MG Oral Tablet; TAKE 0.5 TABLET Bedtime SocHx: Former smoker Tobacco Use Screening; Status:Complete; Done: [id number] Unlinked Stop: Aspirin 325 MG Oral Tablet [...] your visit. Device check as directed per [facility] protocol Follow up in 6-9 months [...] skin r (more content not included)... Normal [facility] Tobacco Screening.on 022 Adult depression screening assessment No [facility] 600 DO Work Phone: Fall risk assessment a) No falls within the last year [facility] 600 DO Work Phone: Tobacco use status CP b) [facility] Work Phone: Tobacco Screening.on 021 Fall risk assessment a) No falls within the last year [facility] 250 DO Work Phone: Tobacco use status CPHS b) No [facility] 250 DO Work Phone: Vital Signs Date Time Vital Sign Value Performing Clinician Rody ace 03-01-2024 11:12-0500 Body height 177.8 cm Osvaldo Dickinson MD Work Phone: [facility] 03-01-2024 11:12-0500 Body mass index (BMI) [Ratio] 30.13 kg/m2 Osvaldo Dickinson MD Work Phone: [facility] 03-01-2024 11:12-0500 Body weight 95.25 kg Osvaldo Dickinson MD Work Phone: [facility] 03-01-2024 11:12-0500 Diastolic blood pressure 54 mm[Hg] Osvaldo Dickinson MD Work Phone: [facility] 03-01-2024 11:12-0500 Heart rate 71 /min Osvaldo Dickinson MD Work Phone: [facility] 03-01-2024 11:12-0500 Systolic blood pressure 114 mm[Hg] Osvaldo Dickinson MD Work Phone: [facility] 12-14-2023 13:17-0400 Diastolic blood pressure 70 mm[Hg] Dank Robert DO Work Phone: [facility] 12-14-2023 13:17-0400 Heart rate 68 /min Dank Robert DO Work Phone: [facility] 12-14-2023 13:17-0400 SaO2% (BldA) [Mass fraction] 97 % Dank Robert DO Work Phone: [facility] 12-14-2023 13:17-0400 Systolic blood pressure 152 mm[Hg] Dank Robert DO Work Phone: [facility] 08-25-2023 12:12-0400 Body height 177.8 cm Varghese Caal MD Work Phone: [facility] 08-25-2023 12:12-0400 Body mass index (BMI) [Ratio] 33.43 kg/m2 Varghese Caal MD Work Phone: [facility] 08-25-2023 12:12-0400 Body weight 105.69 kg Varghese Caal MD Work Phone: [facility] 08-25-2023 12:12-0400 Diastolic blood pressure 54 mm[Hg] Varghese Caal MD Work Phone: [facility] 08-25-2023 12:12-0400 Heart rate 60 /min Varghese Caal MD Work Phone: [facility] 08-25-2023 12:12-0400 Systolic blood pressure 126 mm[Hg] Varghese Caal MD Work Phone: [facility] 02-10-2023 11:37-0500 Body height 177.8 cm Varghese Caal MD Work Phone: [facility] 02-10-2023 11:37-0500 Body mass index (BMI) [Ratio] 32.28 kg/m2 Varghese Caal MD Work Phone: [facility] 02-10-2023 11:37-0500 Body weight 102.06 kg Varghese Caal MD Work Phone: [facility] 02-10-2023 11:37-0500 Diastolic blood pressure 58 mm[Hg] Varghese Caal MD Work Phone: [facility] 02-10-2023 11:37-0500 Heart rate 63 /min Varghese Caal MD Work Phone: [facility] 02-10-2023 11:37-0500 Systolic blood pressure 120 mm[Hg] Varghese Caal MD Work Phone: [facility] 07-01-2022 10:54-0400 Body height 177.8 cm [facility] Work Phone: 07-01-2022 10:54-0400 Body mass index (BMI) [Ratio] 32.71 kg/m2 Andrea [facility]inoza [facility] DO Work Phone: 07-01-2022 10:54-0400 Body surface area Derived from formula 2.21 m2 Andrea Espinoza Work Phone: [facility] [place] 600 DO Work Phone: 07-01-2022 10:54-0400 Body weight 103.42 kg Andrea Espinoza Work Phone: [facility] 600 DO Work Phone: 07-01-2022 10:54-0400 Diastolic blood pressure 64 mm[Hg] Andrea Vasquezroh Work Phone: [facility] 600 DO Work Phone: 07-01-2022 10:54-0400 Heart rate 72 /min Andrea Vasquezroh Work Phone: [facility] 600 DO Work Phone: 07-01-2022 10:54-0400 Systolic blood pressure 118 mm[Hg] [facility]h [facility] 600 DO Work Phone: 12-16-2021 11:08-0400 Body height 177.8 cm Andrea Houstonh Work Phone: [facility] 600 DO Work Phone: 12-16-2021 11:08-0400 Body mass index (BMI) [Ratio] 33.86 kg/m2 Andrea [facility]quezroh [facility] 600 DO Work Phone: 12-16-2021 11:08-0400 Body surface area Derived from formula 2.24 m2 Andrea Vasquezroh Work Phone: [facility] 600 DO Work Phone: 12-16-2021 11:08-0400 Body weight 107.05 kg Andrea Vasquezroh Work Phone: [facility] 600 DO Work Phone: 12-16-2021 11:08-0400 Diastolic blood pressure 64 mm[Hg] Andrea Espinoza Work Phone: [facility] 600 DO Work Phone: 12-16-2021 11:08-0400 Heart rate 72 /min Andrea Espinoza Work Phone: [facility] 600 DO Work Phone: 12-16-2021 11:08-0400 Systolic blood pressure 132 mm[Hg] Andrea Espinoza Work Phone: [facility] 600 DO Work Phone: 01-22-2021 14:36-0400 Body height 177.8 cm Andrea Espinoza Work Phone: [facility] 250 DO Work Phone: 01-22-2021 14:36-0400 Body mass index (BMI) [Ratio] 34.01 kg/m2 Andrea Espinoza Work Phone: [facility] 250 DO Work Phone: 01-22-2021 14:36-0400 Body surface area Derived from formula 2.24 m2 Andrea Espinoza Work Phone: [facility] 250 DO Work Phone: 01-22-2021 14:36-0400 Body weight 107.5 kg Andrea Espinoza Work Phone: [facility] 250 DO Work Phone: 01-22-2021 14:36-0400 Diastolic blood pressure 54 mm[Hg] Andrea Espinoza Work Phone: [facility] 250 DO Work Phone: 01-22-2021 14:36-0400 Heart rate 76 /min Andrea Espinoza Work Phone: [facility] 250 DO Work Phone: 01-22-2021 14:36-0400 Systolic blood pressure 104 mm[Hg] Andrea Houstonzulay Work Phone: [facility] 250 DO Work Phone: Encounters Encounter Date Encounter Type Care Provider Facility Start: 05-18-2024 ambulatory Mica M. Lue Facility:[facility] Start: 05-12-2024 ambulatory Mica M. Lue Facility:[facility] Start: 04-26-2024 End: 04-26-2024 ambulatory Mica M. Lue Facility:[facility] [place] Start: 04-25-2024 End: 04-25-2024 ambulatory Deepti Sernaa Facility:[facility] [place] Start: 04-25-2024 End: 04-25-2024 ambulatory Mica M. Lue Facility:[facility] [place] Start: 04-12-2024 End: 04-12-2024 ambulatory Mica M. Lue Facility:[facility] [place] Start: 04-06-2024 End: 04-06-2024 ambulatory Mica M. Lue Facility:[facility] Start: 03-28-2024 End: 03-28-2024 ambulatory Benton Vasquez [facility] Work Phone: Start: 03-28-2024 End: 03-28-2024 Departed Referred Benton Vasquez DO [facility] Start: 03-24-2024 End: 03-24-2024 ambulatory Mica M. Lue Facility:[facility] Start: 03-11-2024 End: 03-11-2024 ambulatory Benton Vasquez Facility:[facility] Start: 03-11-2024 End: 03-11-2024 Departed Referred Benton Vasquez DO [facility] Start: 03-02-2024 [...] BMI 30.0-30.9,adult Start: 03-01-2024 End: 03-01-2024 ambulatory [facility] [facility] Start: 02-19-2024 End: 02-19-2024 Emergency department patient visit LORI Vallejo Fan [facility] Start: 02-18-2024 End: 02-18-2024 ambulatory Mica Car Facility:[facility] Start: 02-14-2024 End: 02-14-2024 ambulatory Mica Car Facility:[facility] Start: 01-31-2024 End: 01-31-2024 ambulatory Anna Milespatriciavalery Facility:[facility] Start: 01-24-2024 End: 01-24-2024 Emergency department patient visit BOBO Theodora BRENNER [facility] Start: 01-17-2024 End: 01-17-2024 Office outpatient visit 25 minutes Blanca Alonso MD Work Phone: [facility] Comment on above: Other atopic dermati tis (Primary Dx); Seborrheic keratosis; Lentigines; History of SCC (squamous cell carcinoma) of skin Start: 01-17-2024 End: 01-17-2024 ambulatory BLANCA ALONSO Not Available Start: 12-27-2023 End: 12-27-2023 ambulatory Mica Car Facility:[facility] Start: 12-14-2023 End: 12-14-2023 Bamboo flowsheet Dank Robert DO Work Phone: [facility] [address] [facility] Start: 12-14-2023 End: 12-14-2023 Bamboo [...] Start: 12-09-2023 End: 12-09-2023 ambulatory Varghese Caal Facility:[facility] Start: 11-12-2023 End: 11-12-2023 ambulatory Mica Car Facility:[facility] Start: 10-14-2023 End: 10-14-2023 Emergency department patient visit Vinipete Quinteros Facility:[facility] Start: 10-14-2023 ambulatory Barb Elkins cility:[facility] Start: 08-31-2023 End: 08-31-2023 ambulatory BLANCA A PETITTI Not Available Start: 08-25-2023 End: 08-25-2023 Office outpatient visit 25 minutes Varghese Caal MD Work Phone: [facility] Comment on above: Essential hypertensi on (Primary Dx); Sick sinus syndrome (Multi); Mixed hyperlipidemia; Paroxysmal atrial fibrillation (Multi); Dilated cardiomyopathy (Multi); Pacemaker; BMI 33.0-33.9,adult Start: 08-25-2023 End: 08-25-2023 ambulatory [facility] Start: 08-10-2023 End: 08-10-2023 ambulatory [...] 25 minutes Varghese Caal MD Work Phone: [facility] Comment on above: Sick sinus syndrome (CMS/HCC) (Primary Dx); Mobitz type II atrioventricular block; Pacemaker; Essential hypertension; Dilated cardiomyopathy (CMS/HCC); Paroxysmal atrial fibrillation (CMS/HCC) Start: 10-22-[address] Andrea Espinoza Facility: Start: 07-01-2022 Office outpatient vi sit 25 minutes Andrea Espinoza Work Phone: [facility] 600 DO Work Phone: Start: 07-01-[address] Varghese Caal II Facility: Start: 05-28-2022 End: 05-28-[address] TRINO Lange Facility:[facility] Start: 05-14-2022 End: 05-15-2022 ambulatory MARIXA ROY Facility:[facility] Start: 04-23-[address] Andrea Espinoza Facility: Start: 12-31-2021 Rx Renewal Andrea Espinoza Work Phone: [facility] 250 DO Work Phone: Start: 12-16-2021 Office outpatient vi sit 25 minutes Andrea Espinoza Work Phone: [facility] 600 DO Work Phone: Start: 12-16-[address] Varghese Caal II Facility: Start: 01-22-2021 Office outpatient vi sit 25 minutes Andrea Espinoza Work Phone: [facility] 250 DO Work Phone: Procedures Date Procedure Procedure Detail Performing Clinician Start: 03-11-2024 Urine culture Benton prajapati DO Start: 03-01-2024 Ecg routine ecg w/le ast 12 lds w/i&r Osvaldo Dickinson MD Work Phone: Colonoscopy Andrea Espinoza Work Phone: Comment on above: [id number]; Insertion of pacemak er pulse generator Andera Espinoza Work Phone: Operation on nose Andrea Edgar Work Phone: Operative procedure on hand Andrea Patel Bernarda Work Phone: Tonsillectomy and adenoidectomy Andrea Espinoza Work Phone: Plan of Treatment Date Care Activity Detail Author Start: 12-09-2032 DTaP/Tdap/Td Vaccine s (2 - Td or Tdap) DTaP/Tdap/Td Vaccines (2 - Td or Tdap) [facility] Start: 01-25-2025 End: 01-25-2025 Patient encounter procedure 01/25/2025 1:05 PM EST Office Visit [facility] [address] [place] [address] Blanca Alonso MD [address] [place] [address] [facility] Start: 12-12-2024 End: 12-12-2024 Patient encounter procedure 12/12/2024 1:00 PM EDT Office Visit [facility] [address] [place] [address] Rox Cervantes, OUTSIDE FOOD SERVER [address] [place], [place] [facility] [address] [facility] Start: 11-28-2024 Glaucoma screening Diabetes: R etinopathy Screening [facility] Start: 11-07-2024 End: 11-07-2024 Patient encounter procedure 11/07/2024 10:30 AM EDT Office Visit [place] [address] [place] [id number] Osvaldo Dickinson MD [address] [place] [address] [facility] Start: 03-28-2024 Urine culture [facility] Start: 03-28-2024 Bacteria identified in Urine by Culture Urine Culture [facility] Start: 03-01-2024 End: 03-01-2024 Patient encounter procedure 03/01/2024 11:00 AM EST Office Visit [address] [place] [address] Osvaldo Dickinson MD [address] [place] [address] [facility] Start: 01-17-2024 End: 01-17-2024 Patient encounter procedure 01/17/2024 3:15 PM EDT Office Visit [facility] [address] [place] [address] Blanca Alonso MD [address] [place] [address] [facility] Start: 12-14-2023 End: 12-14-2023 Patient encounter procedure 12/14/2023 1:30 PM EDT Office Visit [facility] [address] [place] [address] Dank Jones DO [address] [place] [address] Arrived [facility] [address] Comment on above: Arrived Start: 12-01-2023 Glaucoma screening Diabetes: R etinopathy Screening [facility] Start: 08-25-2023 End: 08-25-2023 Patient encounter procedure 08/25/2023 11:40 AM EDT Office Visit [address] [place] [address] Varghese Caal MD [address] [place] [address] [facility] Start: 06-05-2023 COVID-19 Vaccine ( season) COVID-19 Vaccine () [facility] Start: 04-01-2023 COVID-19 Vaccine (6 - Moderna series) COVID-19 Vaccine (6 - Moderna series) [facility] Start: 02-10-2023 FUV, Provider: Varghese Caal, Status: Pen, Time: 11:30 AM FUV, Provider: Varghese Caal, Status: Pen, Time: 11:30 AM -[facility] 600 DO Work Phone: Start: 07-01-2022 FUV, Provider: Varghese Caal, Status: Pen, Time: 10:40 AM FUV, Provider: Varghese Caal, Status: Pen, Time: 10:40 AM -[facility] 600 DO Work Phone: Start: 09-10-2021 FUV, Provider: Varghese Caal, Status: Pen, Time: 2:30 PM FUV, Provider: Varghese Caal, Status: Pen, Time: 2:30 PM -[facility] 250 DO Work Phone: Start: 2020 RSV High Risk: (Elde rly (60+) or Population) (1 - 1-dose 75+ series) RSV High Risk: (Elderly (60+) or Population) (1 - 1-dose 75+ series) [facility] Start: 05-09-2020 Echocardiography Echocardiogram [facility] Start: 2005 RSV patient s and/or patients aged 60+ years (1 - 1-dose 60+ series) RSV patients and/or patients aged 60+ years (1 - 1-dose 60+ series) [facility] Start: 11-26-1995 Zoster Vaccines (1 of 2) Zoste r Vaccines (1 of 2) [facility] Start: 1964 Urine screening for protein Diabetes: Urine Protein Screening [facility] Start: 11-26-1963 [facility]atitis [facility] Start: 11-26-1955 Diabetic foot examination Diabetes: Foot Exam [facility] Start: 11-26-1955 Glaucoma screening Diabetes: R etinopathy Screening [facility] Start: 1945 Creatinine measurement Creatinine Le sarah [facility] Start: 1945 Hemoglobin A1c measurement Jennifer nicolasa: Hemoglobin A1C [facility] Start: 1945 Lipid panel Lipid Panel [facility] Start: 1945 Medicare Annual Well ness Visit Medicare Annual Wellness Visit (AWV) [facility] Start: 1945 Potassium measurement Potassium Cb l [facility] Immunizations Immunization Date Immunization Notes Care Provider Fa naren 01-14-2022 Fluad Quadrivalent 0 .5 ML Intramuscular Prefilled Syringe Andrea Patel Pedroemma Work [facility]: [facility] 600 DO Work Phone: 01-14-2022 Pfizer COVID-19 Vac Bivalent 30 MCG/0.3ML Intramuscular Suspension Andrea Patel Pedroemma Work Phone: [facility] 600 DO Work Phone: 09-03-2021 pneumococcal conjuga te vaccine, 13 valent Dank Robert DO Work Phone: [facility] 02-15-2021 Moderna COVID-19 Vac cine 100 MCG/0.5ML Intramuscular Suspension Andrea Amanda Vasquezemma Work Phone: [facility] 600 DO Work Phone: 01-30-2021 influenza virus vacc ine, unspecified formulation Andrea Patel Pedroemma Work Phone: [facility] 600 DO Work Phone: 11-28-2020 influenza, high dose seasonal, preservative-free Andrea Patel Pedroemma Work Phone: [facility] 250 DO Work Phone: Comment on above: Series: 06-20-2020 Moderna COVID-19 Vac cine 100 MCG/0.5ML Intramuscular Suspension Andrea Patel Pedroyann Work Phone: [facility] 600 DO Work Phone: 05-20-2020 Moderna COVID-19 Vac cine 100 MCG/0.5ML Intramuscular Suspension [facility] Work Phone: Comment on above: Series: 04-25-2020 Moderna COVID-19 Vac cine 100 MCG/0.5ML Intramuscular Suspension Andrea Espinoza Work Phone: [facility] 250 DO Work Phone: Comment on above: Series: 12-21-2019 influenza virus vacc ine, unspecified formulation Andrea Espinoza Work Phone: [facility] 600 DO Work Phone: 12-20-2018 influenza, high dose seasonal, preservative-free Andrea Espinoza Work Phone: [facility] 02-19-2018 influenza virus vacc ine, unspecified formulation Andrea Houston Work Phone: [facility] 600 DO Work Phone: 02-19-2018 pneumococcal polysaccharide vaccine, 23 valent Andrea Houston Work Phone: [facility] 250 DO Work Phone: Comment on above: Series: 02-19-2018 pneumococcal vaccine , unspecified formulation Andrea Espinoza Work Phone: [facility] 02-18-2017 Influenza, injectabl e, Madin [place] Canine Kidney, preservative free, quadrivalent Andrea Houston Work Phone: [facility] 600 DO Work Phone: 11-24-2016 influenza, high dose seasonal, preservative-free Andrea Vasquezro Work Phone: [facility] 600 DO Work Phone: 12-21-2015 pneumococcal conjuga te vaccine, 13 valent Andrea Houston Work Phone: [facility] 250 DO Work Phone: Comment on above: Series: Payers Date Payer Category Payer Self-pay 2022 Medicare [id number] 2022 [employer] ( and others) [id number] 2022 () [id number]. [id number] 2022 For Life (TFL) F OR LIFE [id number]. [id number] 2022 [employer] ( and others) [id number] 2010 Medicare [id number]. 1.13.647. [id number] 1959 [employer] ( and others) [id number] 1959 Medicare [id number] 1945 Unknown [id number] 2.16.840.1.145892.3.579. 2.593 1945 Unknown [id number] 2.16.840.1.210340.3.579. 2.593 1945 Unknown [id number] 2.16.840.1.009559.3.579. 2.356 1945 Unknown [id number] 2.16840.1.780029.3.579. 2.356 1945 Unknown [id number] 2.840.1.742680.3.579. 2.356 1945 Unknown [id number] 2.840.1.853279.3.579. 2.356 1945 Unknown [id number] 2.840.1.863089.3.579. 2.1259 1945 Unknown [id number] 2.840.1.791639.3.579. 2.1259 1945 Unknown [id number] 2.840.1.276016.3.579. 2.1259 1945 Unknown [id number] 2.840.1.237046.3.579. 2.1259 1945 Unknown [id number] 2.840.1.874966.3.579. 2.1259 1945 Unknown [id number] 2.840.1.404758.3.579. 2.1259 1945 Unknown [id number] 2.840.1.836389.3.579. 2.1286 1945 Unknown [id number] 2.840.1.249608.3.579. 2.1286 1945 Unknown [id number] 2.840.1.679089.3.579. 2.1244 1945 Unknown [id number] 2.840.1.763451.3.579. 2.1244 1945 Unknown [id number] 2.16.840.1.381031.3.579. 2.72 1945 Unknown [id number] 2.16.840.1.452364.3.579. 2. 1945 Unknown [id number] 2.16.840.1.839657.3.579. 2. 1945 Unknown [id number] 2.16.840.1.291758.3.579. 2. 1945 Unknown [id number] 2.16.840.1.320379.3.579. 2. 1945 Unknown [id number] 2.16.840.1.944873.3.579. 2 1945 Unknown [id number] 2.16.840.1.058467.3.579. 2 1945 Unknown [id number] 2.16.840.1.524435.3.579. 2 1945 Unknown [id number] 2.16.840.1.675971.3.579. 2 1945 Unknown [id number] 2.16.840.1.389481.3.579. 2 1945 Unknown [id number] 2.16.840.1.737692.3.579. 2. 1945 Unknown [id number] 2.16.840.1.008829.3.579. 2 1945 Unknown [id number] 2.16.840.1.190831.3.579. 2. 1945 Unknown [id number] 2.16.840.1.073985.3.579. 2 1945 Unknown [id number] 2.16.840.1.271183.3.579. 2. 1945 Unknown [id number] 2.16.840.1.837430.3.579. 2.727 1945 Unknown [id number] 2.16.840.1.878383.3.579. 2.727 1945 Unknown [id number] 2.16.840.1.180477.3.579. 2.727 1945 Unknown [id number] 2.16.840.1.725808.3.579. 2.727 1945 Unknown [id number] 2.16.840.1.441324.3.579. 2.727 Unknown Unknown [id number] 2.16.840.1.219887.3.579. 2.531 Unknown [id number] 2.16.840.1.218933.3.579. 2.531 Social History Date Type Detail Facility Start: 02-10-2023 End: 12-14-2023 No illicit drug use No illicit drug use [facility] 250 DO Work Phone: Comment on above: quit , 1 PPD; Start: 02-10-2023 End: 08-25-2023 Tobacco smoking status NHIS Ex-smoker [facility] Work Phone: End: 03-22-1992 History of tobacco use Current smoker [facility] Work Phone: End: 03-22-1992 History of tobacco use Cigarette Smoker [facility] Work Phone: Start: 10-11-2022 End: 02-10-2023 Tobacco use and exposure Smokeless tobacco non-user [facility] Work Phone: Start: 02-10-2023 End: 12-14-2023 Alcohol intake Lifetime non-drinker (finding) [facility] Work Phone: Start: 02-10-2023 End: 12-14-2023 Tobacco use panel [facility] Work Phone: Start: 1945 Sex Assigned At Not on file U [facility] Work Phone: Start: 01-31-2023 End: 03-01-2024 Exposure to SARS-CoV-2 (event) Not sure [facility] Start: 10-11-2022 Tobacco smoking stat NHIS Never smoked tobacco [facility] Tobacco smoking stat us NHIS Unknown if ever smoked [facility] Work Phone: Start: 03-30-2024 Sex Patient sex un known (finding) [facility] Start: 1945 Sex Assigned At Male [facility] Clinical Notes 05-14-2022 to 04-26-2024 [...] provider. Document Revised: 11/05/2021 Document Reviewed: 11/05/2021 [employer] Patient Education ? 2023 [employer]. [facility] 04-12-2024 Note Patient Education Urology Benign [...] Follow these instructions at home: ??? Take pbuw-zta-siwxyty and prescription medicines only as told by [...] not get (more content not included)... [facility] 03-02-2024 Note Patient Education Urology Acute [...] these instructions at home: Medicines ??? Take vmgu-iaj-pxxcikw and prescription medicines only as told by [...] provider. Document Revised: 11/27/2020 Document Reviewed: 11/27/2020 [employer] Patient Education ? 2023 [employer]. [facility] 03-01-2024 History of Present illness Narrative [...] to retrieve his recent lab work from [facility] 5. I will see him back in [...] discussion and plan. documented in this encounter [facility] Work Phone: 03-01-2024 Instructions Betzaida Denney [...] instructions on exercise. documented in this encounter [facility] Work Phone: 02-14-2024 Note Patient Education [...] the c (more content not included)... [facility] 01-31-2024 Note Patient Education Urology Acute [...] these instructions at home: Medicines ??? Take gctm-yzp-zhkdvou and prescription medicines only as told by [...] provider. Document Revised: 11/27/2020 Document Reviewed: 11/27/2020 [employer] Patient Education ? 2023 [employer] Benign Prostatic Hyperplasia Benign prostatic hyperplasia (BPH) is an enlarged prostate gland that is caused by the normal aging proc (more content not included)... 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 and he has [...] Visit: 1 year documented in this encounter [facility] 12-27-2023 Note Progress Note-Asaf tapia Patient: LEIGHTON [...] day(s), # 6 tab(s), Refills(s) 0, Pharmacy: [facility] #[id number], 177, cm, 12/27/23 11:02:00 EDT, Height/Length Dosing, 104, kg, 12/27/23 11:02:00 EDT, Weight Dosing Shiloh 325 mg-5 mg oral tablet: 1 tab(s), Oral, q6hr for pain, 4 tab(s), Refill(s) 0, Take 1 tablet an hour before procedure, post procedure prn, [facility] #[id number], 177, cm, 12/27/23 11:02:00 EDT, Height/Length Dosing, 104, kg, 12/27/23 11:02:00 EDT, Weight Dosing sildenafil 100 mg Tab: 100 mg = 1 tab(s), Oral, As Directed, PRN for erectile dysfunction, Take one tab 1 hour prior to sexual activity., # 30 tab(s), Refills(s) 3, Pharmacy: [facility] #[id number], 177.8, cm, 06/16/23 10:18:00 EDT, Height/Length Dosing, 104.8, kg, 06/16/23 10:18:... terazosin 10 mg Cap: 10 mg = 1 cap(s), Oral, Once a day (at bedtime), # 90 cap(s), Refills(s) 3, Pharmacy: [facility], 177, cm, 12/27/23 11:02:00 EDT, Height/Length Dosing, 104, kg, 12/27/23 11:02:00 EDT, Weight Dosing traMADOL 50 mg Tab: 50 mg = 1 tab(s), Oral, q6hr, Take as needed for pain., # 6 tab(s), Refills(s) 0, Pharmacy: [facility] #[id number], 177.8, cm, 11/12/23 15:35:00 EDT, Height/Length Dosing, [...] Plan: Diagnosis: Prostate hyperplasia with urinary obstruction (OVY81-KG N40.1, Discharge, Medical), Feeling of incomplete bladder emptying (CDY32-GW R39.14, Working, Medical), Anticoagulated (ZAF75-OF Z79.01, Discharge, Medical). 78 yo male here [...] and Valium prior to procedure. Will need compactor driver. The procedural risks, benefits, details, and treatment alternatives have been discussed with the patient. These include bleeding, infection, continued problems urinating, increased frequency with urgency during the healing process, painful urination, need for indwelling cathete (more content not included)... [facility] Comment on above: Result Comment: Elec [...] have a fever over 100 degrees. [facility] 12-14-2023 History of Present illness Narrative [...] Actinic keratosis COPD (chronic obstructive pulmonary disease) ([facility]/HCC) Coronary heart disease (CMS/HCC) Diabetes mellitus, type 2 (CMS/HCC) HTN (hypertension) ([facility]/HCC) Hx of psoriasis Kidney disease ME (myocardial infarction) ([facility]/HCC) VIRGILIO (obstructive sleep apnea) Pacemaker Squamous cell [...] was counselled on the risk of stroke, ME, and sudden with VIRGILIO, along with the [...] Return to clinic: documented in this encounter [facility] 11-12-2023 Note Patient Education Urology Benign Prostatic [...] Follow these instructions at home: ? Take agzx-dgd-yxwvpzy and prescription medicines only as told by [...] side effec (more content not included)... [facility] 10-14-2023 Note ED Patient Education Note [...] under your knee. General instructions ? Take ybtp-pxu-sdcbsyi and prescription medicines only as told by [...] provider. Document Revised: 08/21/2020 Document Reviewed: 08/21/2020 [employer] Patient Education ? 2022 [employer]. [facility] 08-25-2023 History of Present illness Narrative [...] discussion and plan. documented in this encounter [facility] Work Phone: 08-25-2023 Instructions Jo Ann [...] of your visit. documented in this encounter [facility] Work Phone: 02-10-2023 History of Present [...] recent pacemaker checks. documented in this encounter [facility] Work Phone: 02-10-2023 Instructions Alize James [...] up per routine documented in this encounter [facility] Work Phone: 05-14-2022 Note PROCEDURE: XR [...] by: JOE DU Date: 2022-05-14 18:40 [facility] Evaluation note Diagnosis Sick sinus syndrome (CMS/HCC)- Primary Sinoatrial node dysfunction Mobitz type II atrioventricular block Mobitz (type) II atrioventricular block Pacemaker Cardiac pacemaker in situ Essential hypertension Unspecified essential hypertension Dilated cardiomyopathy (CMS/HCC) Other primary cardiomyopathies Paroxysmal atrial fibrillation (CMS/HCC) Atrial fibrillation documented in this encounter [facility] Work Phone: Evaluation note* Diagnosis Essential hypertension- Primary Unspecified essential hypertension Sick sinus syndrome (Multi) Sinoatrial node dysfunction Mixed hyperlipidemia Paroxysmal atrial fibrillation (Multi) Atrial fibrillation Dilated cardiomyopathy (Multi) Other primary cardiomyopathies Pacemaker Cardiac pacemaker in situ BMI 33.0-33.9,adult documented in this encounter [facility] Work Phone: Evaluation note* Diagnosis Other atopic dermatitis- Primary Seborrheic keratosis Lentigines History of SCC (squamous cell carcinoma) of skin Personal history of other malignant neoplasm of skin documented in this encounter [facility] Healthcare[facility] note* Diagnosis Paroxysmal atrial fibrillation (Multi)- Primary Atrial fibrillation Sick sinus syndrome (Multi) Sinoatrial node dysfunction Pacemaker Cardiac pacemaker in situ Essential hypertension Unspecified essential hypertension Cardiomyopathy, unspecified type (Multi) Mixed hyperlipidemia Stage 4 chronic kidney disease (Multi) Non-smoker BMI 30.0-30.9,adult documented in this encounter [facility] Work Phone: Evaluation note* Diagnosis VIRGILIO (obstructive sleep apnea)- Primary Obstructive sleep apnea (adult) (pediatric) Hypersomnia Hypersomnia, unspecified PLMD (periodic limb movement disorder) Periodic limb movement disorder Obesity due to excess calories, unspecified classification, unspecified whether serious comorbidity present Snoring Other dyspnea and respiratory abnormality documented in this encounter [facility] HealthcareEvaluation noteNo assessment information [facility] Work Phone: History of Present illness [...] on the basis of his improve lifestyle modification.-[facility] 250 DO Work Phone: History of Present [...] the merits of diet and weight loss. 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 [facility] [place] 600 DO Work Phone: Reason for referral (narrative)* Consultation (Routine) - Authorized Specialty Diagnoses / Procedures Referred By Elida gifford Referred To Contact Cardiology Diagnoses Sick sinus syndrome (CMS/HCC) Procedures Follow Up In Cardiology Varghese Caal MD [address] [place] [address], [address] [address] Varghese Caal MD [address] [place] [address], [address] [address] Referral ID Status Reason Start Date Expiration Date V isits Requested Visits Authorized [id number] Authorized 02/10/2023 02/10/2024 1 1 [facility] Work Phone: Reason for referral (narrative)* Consultation (Routine) - Authorized Specialty Diagnoses / Procedures Referred By Elida gifford Referred To Contact Cardiology Diagnoses Sick sinus syndrome (Multi) Procedures Follow Up In Cardiology Varghese Caal MD [address], [address] [address] Osvaldo Dickinson MD [address], [facility] [address] [place] [address] Referral ID Status Reason Start Date Expiration Date V isits Requested Visits Authorized [id number] Authorized 08/25/2023 08/24/2024 1 1 [facility] Work Phone: Chief Complaint LEIGHTON ARCINIEGA [...] DATE CREATED AUTHOR AUTHOR'S ORGANIZ ATION 01/18/2024 [facility] EPIC DATE CREATED AUTHOR AUTHOR'S ORGANIZ ATION 02/21/2024 [facility] DATE CREATED AUTHOR AUTHOR'S ORGANIZ ATION 03/04/2024 [facility] [employer] [facility] DATE CREATED AUTHOR AUTHOR'S ORGANIZ ATION 04/02/2024 [facility] DATE CREATED AUTHOR AUTHOR'S ORGANIZ ATION 04/07/2024 [facility] DATE CREATED AUTHOR AUTHOR'S ORGANIZ ATION 04/13/2024 [facility] DATE CREATED AUTHOR AUTHOR'S ORGANIZ ATION 04/27/2024 [facility] DATE CREATED AUTHOR AUTHOR'S ORGANIZ ATION 04/28/2024 [facility] Reason for Visit (unrecogniz ed section and content) Reason Comments Follow-up 6-9mo Reason Comments Follow-up 6-9 months Specialty Diagnoses / Procedures Referred By Contac t Referred To Contact Cardiology Diagnoses Sick sinus syndrome (Multi) Procedures Follow Up In Cardiology Varghese Caal MD [address] [place] [id number] Varghese Caal MD [address] [place] [address], [address] [id number] Referral ID Status Reason Start Date Expiration Date V isits Requested Visits Authorized [id number] Authorized 02/10/2023 02/10/2024 1 1 Reason Comments Skin Check Follow-up Reason Comments Follow-up 6-9 months Specialty Diagnoses / Procedures Referred By Contac t Referred To Contact Cardiology Diagnoses Sick sinus syndrome (Multi) Procedures Follow Up In Cardiology Varghese Caal MD Traboulssi, Mourhaf, MD [address] [place] [id number] Phone: tel: fax: Referral ID Status Reason Start Date Expiration Date V isits Requested Visits Authorized [id number] Authorized 08/25/2023 08/24/2024 1 1 Reason Comments Sleep Apnea Care Teams (unrecognized sec tion and content) 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 Relationship Specialty Start Date End Date Andrea Espinoza DO [address] [place] [id number] PCP - General 03/22/99 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 Relationship Specialty Start Date End Date Andrea Espinoza DO [address] [place] [id number] PCP - General 03/22/99 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 Relationship Specialty Start Date End Date Lori Medina MD [address] [place] [address] PCP - General Family Medicine 10/09/22 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 [facility] EXTENDED STAYS [facility]. provides no warranty or guarantee of the accuracy or completeness of information in this document.
[2024-05-07 19:41] LABS: Glucometer 61 mg/dL (74-106)
[2024-05-07 21:03] LABS: C Reactive Protein <0.50 mg/dL (<=0.50); Thyroid Stimulating Hormone 1.265 uIU/mL (0.358-3.740)
[2024-05-07] MEDS: APIXABAN 5 MG TABLET PO (21:37)
[2024-05-07] MEDS: CARVEDILOL 6.25 MG TABLET PO (21:37)
[2024-05-07] MEDS: BUMETANIDE 10 MG in 0.9 % SODIUM CHLORIDE 160 ML 20 MG IV (21:42)
[2024-05-07] MEDS: HYDRALAZINE HCL 50 MG TABLET 100 MG PO (21:42)
[2024-05-07] MEDS: TERAZOSIN HCL 5 MG CAPSULE 10 MG PO (22:06)
[2024-05-07 22:15] LABS: Internal Control Within Normal Limits; Respiratory Syncytial Virus Not Detected (NOT DETECTE)
[2024-05-07 22:36] LABS: Lactate/Lactic Acid 1.2 mmol/L (0.4-2.0)
[2024-05-08] VITALS (55 sets, daily range): BP systolic 120–143; BP diastolic 63–73; PULSE 72–88; RESP 16; TEMP 36.4–36.7; O2SAT 87–96
[2024-05-08] MEDS: PIPERACILLIN SODIUM/TAZOBACTAM 3.375 GM in 0.9 % SODIUM CHLORIDE 50 ML IV ×3 (03:33→17:28)
[2024-05-08] MEDS: IPRATROPIUM/ALBUTEROL SULFATE 3 ML AMPUL.NEB IH ×4 (04:33→23:33)
[2024-05-08 05:08] LABS: Hematocrit 27.2 % (42.0-54.0); Immature Granulocytes Abs Auto 0.03 10^3/uL (0.00-0.03); Immature Granulocytes Pct Auto 0.5 % (0.0-0.5); Lymphocytes Absolute Auto 0.2 10^3/uL (1.2-3.8); Lymphocytes Percent Auto 2.5 % (20.5-60.0); Mean Corpuscular HGB Conc 33.1 g/dL (29.9-35.2); Mean Corpuscular Hemoglobin 31.5 pg (25.9-34.0); Mean Corpuscular Volume 95.1 fL (80.0-94.0); Mean Platelet Volume 9.3 fL (9.5-13.5); Monocytes Absolute Auto 0.1 10^3/uL (0.3-0.8); Monocytes Percent Auto 1.7 % (1.7-12.0); Neutrophils Percent Auto 95.3 % (43.0-75.0); Platelet Count 123 10^3/uL (150-450); Red Blood Count 2.86 10^6/uL (4.70-6.10); Red Cell Distribution Width 15.9 % (11.0-15.0); White Blood Count 6.3 10^3/uL (4.0-11.0)
[2024-05-08 05:33] LABS: Alanine Aminotransferase 26 U/L (16-63); Albumin Globulin Ratio 0.9; Albumin Level 2.5 g/dL (3.4-5.0); Alkaline Phosphatase 50 U/L (46-116); Anion Gap 13.6; Aspartate Amino Transferase 12 U/L (15-37); BUN Creatinine Ratio 31.8; Bilirubin Total 0.5 mg/dL (0.2-1.0); Calcium 8.7 mg/dL (8.5-10.1); Carbon Dioxide 23.5 mmol/L (21.0-32.0); Chloride 103 mmol/L (98-107); Estimated GFR (African America 32 (>=60 mL/min/1.73m^2); Estimated GFR (Non-African Ame 26 (>=60 mL/min/1.73m^2); Globulin 2.9 g/dL; Glucose 77 mg/dL (74-106); Magnesium 2.1 mg/dL (1.8-2.4); Potassium 4.1 mmol/L (3.5-5.1); Sodium 136 mmol/L (136-145); Total Protein 5.4 g/dL (6.4-8.2)
[2024-05-08 05:36] LABS: NT Pro B Type Natriuretic Pept >35000.0 pg/mL (<=1800.0)
[2024-05-08] MEDS: HYDRALAZINE HCL 50 MG TABLET 100 MG PO ×3 (06:23→22:07)
--- NOTE | 2024-05-08 06:43 | CA_ITS ---
Patient Name: LEIGHTON ARCINIEGA MR#: [id number] : 1945 Exam Date: 05/08/2024 Ordering Doctor: DR Jayy Dutta . ECHOCARDIOGRAM REPORT PROCEDURE: CA ECHO LIMITED INDICATIONS: chf COMPARISON: None. DESCRIPTION: Limited ECHOCARDIOGRAM Real-time transthoracic echocardiography with 2D and M-mode performed. QUALITY: Technical quality was good. LEFT VENTRICLE: The left ventricle is mildly dilated. Moderate left ventricular hypertrophy. LV EF: Global left ventricular systolic function is severely reduced; visually estimated ejection fraction is 15-20%. Diffuse global hypokinesis. Abnormal septal motion; may be related to underlying paced rhythm. LEFT ATRIUM: Severe dilatation. RIGHT ATRIUM: Moderate dilatation. Pacer wire present. RIGHT VENTRICLE: Mild dilatation. Systolic function appears reduced. Pacer wire present. TRICUSPID VALVE: Normal mobility and thickness. MITRAL VALVE: Normal mobility and thickness. There is no mitral annular calcification. AORTIC VALVE: Normal trileaflet appearance. No visible sclerosis. Normal leaflet mobility. AORTIC ROOT: Normal diameter and appearance. PULMONIC VALVE: Normal thickness and mobility. PERICARDIUM: No evidence of pericardial effusion. IVC: Severe dilatation. Measuring 3.3cm with no collapse. CONCLUSION: 1. Global left ventricular systolic function is severely reduced; visually estimated ejection fraction is 15 to 20% 2. The left ventricle is mildly dilated 3. Moderate left ventricular hypertrophy 4. Biatrial dilatation 5. The right ventricle is mildly dilated with reduced systolic function A limited echocardiogram was performed Adult Echocardiography Procedure Report Left Ventricle LVEDD (3.7 - 5.6 cm): 5.77 cm LVESD (2.2 - 4.0 cm): 4.74 cm LVIVS thickness (0.6 - 1.2 cm): 1.29 cm LVPW thickness (0.5 - 1.0 cm): 1.40 cm LVOT Diameter 2.05 cm Left Atrium LA Volume Index (2D A2C): 56.96 ml/m2 Left Atrium Systolic Dimension: 4.53 cm Mitral Valve Right Ventricle RV Internal Diastolic Dimension: 4.73 cm Aorta AO Root Diam: 3.37 cm Aortic Valve Tricuspid Valve Pulmonic Valve Right Atrium Right Atrium Systolic Pressure: 100.67 ml, 100.67 ml Dictated by: Veronica Kim M.D. on 05/08/2024 at 12:01 Approved by: Veronica Kim M.D. on 05/08/2024 at 12:04
--- NOTE | 2024-05-08 07:47 | P.HP_ITS ---
HPI H&P: HPI History of Present Illness Chief complaint: BL PNEUMONIA RESPIRATORY DISTRESS CHF Narrative: Patient with recent hospitalization, Re-presented to the emergency room with increasing cough and shortness of breath and found to have bilateral lower lobe pneumonia, significant peripheral edema at that time as well, his BNP is chronically elevated, with the need for BiPAP he was placed in the intensive care unit Opioid HPI Opioid Management Most Recent Pain and Opioid Data: Last Pain Scale 0 05/05/24 09:03 05/05/24 Last Pain Intensity 0 05/05/24 10:47 05/05/24 Last Pain Assessment 05/08/24 06:20 Last ORT Total Score 0 05/07/24 19:23 05/07/24 Last ORT Risk Category Low Risk 05/07/24 19:23 05/07/24 Review of Systems ROS Status of ROS 10 or more systems reviewed and unremark able except as noted in history and below [facility] Medical History (Updated 05/07/24 @ 18:09 by ) Hospital acquired PNA ?J18.9 - Pneumonia, unspecified organism (ICD-10) ?Y95 - Nosocomial condition (ICD-10) Shortness of breath ?R06.02 - Shortness of breath (ICD-10) Congestive heart failure ?I50.9 - Heart failure, unspecified (ICD-10) Pneumonia ?J18.9 - Pneumonia, unspecified organism (ICD-10) Severe sepsis ?A41.9 - Sepsis, unspecified organism (ICD-10) ?R65.20 - Severe sepsis without septic shock (ICD-10) COPD exacerbation ?J44.1 - Chronic obstructive pulmonary disease with (acute) exacerbation (ICD-10) Acute exacerbation of chronic heart failure ?I50.9 - Heart failure, unspecified (ICD-10) Acute hypoxemic respiratory failure ?J96.01 - Acute respiratory failure with hypoxia (ICD-10) Acute kidney injury ?N17.9 - Acute kidney failure, unspecified (ICD-10) Bladder spasm ?N32.89 - Other specified disorders of bladder (ICD-10) Urinary tract infection ?N39.0 - Urinary tract infection, site not specified (ICD-10) Urinary tract infection ?N39.0 - Urinary tract infection, site not specified (ICD-10) Failure of outpatient treatment ?Z78.9 - Other specified health status (ICD-10) Urinary tract infection ?N39.0 - Urinary tract infection, site not specified (ICD-10) Skin cancer ?C44.90 - Unspecified malignant neoplasm of skin, unspecified (ICD-10) Myocardial infarction ?I21.9 - Acute myocardial infarction, unspecified (ICD-10) Pacemaker ?Z95.0 - Presence of cardiac pacemaker (ICD-10) CKD (chronic kidney disease) ?N18.9 - Chronic kidney disease, unspecified (ICD-10) CAD (coronary artery disease) ?I25.10 - Atherosclerotic heart disease of [place] coronary artery without angina pectoris (ICD-10) A-fib ?I48.91 - Unspecified atrial fibrillation (ICD-10) Erectile dysfunction ?N52.9 - Male erectile dysfunction, unspecified (ICD-10) UTI (urinary tract infection) ?N39.0 - Urinary tract infection, site not specified (ICD-10) GERD (gastroesophageal reflux disease) ?K21.9 - Gastro-esophageal reflux disease without esophagitis (ICD-10) Hypertension ?I10 - Essential (primary) hypertension (ICD-10) Diabetes ?E11.9 - Type 2 diabetes mellitus without complications (ICD-10) Surgical History History of arthroscopic knee surgery ?Z98.890 - Other specified postprocedural states (ICD-10) Hx of tonsillectomy ?Z90.89 - Acquired absence of other organs (ICD-10) Family History Mother Family history of CHF (congestive heart failure) Family history of myocardial infarction Family history of hypertension Family history of diabetes mellitus Family history of COPD (chronic obstructive pulmonary disease) Grandmother Family history of CHF (congestive heart failure) Brother Family history of CHF (congestive heart failure) Family history of myocardial infarction Family history of hypertension Family history of COPD (chronic obstructive pulmonary disease) Father Kidney failure Social History Within the past year, how often did you have a drink containing alcohol: never Score interpretation: A score less than 4 is consistent with normal alcohol consumption. Smoking status: Former smoker Non-prescribed substance use: denies use Known occupational exposures/hazards: No Highest level of school completed/degree received: some college, no degree Do you want help with school or training: No Little interest or pleasure in doing things: not at all Feeling down, depressed, or hopeless: not at all Gender Identity: male Meds Home Medications and Allergies Home Medications ?Medication ?Instructions ?Recorded ?Confirmed ?Type acetaminophen 500 mg capsule 1,000 mg PO Q6H PRN fever or pain 02/26/24 05/07/24 History allopurinol 300 mg tablet 300 mg PO DAILY 02/26/24 05/07/24 History amlodipine 10 mg tablet 10 mg PO DAILY 02/26/24 05/07/24 History apixaban 5 mg tablet (Eliquis) 5 mg PO Q12H 02/26/24 05/07/24 History aspirin 81 mg tablet,delayed 81 mg PO .weekly 02/26/24 05/07/24 History release (Adult Aspirin Regimen) calcium 315 mg (as 1 tab PO DAILY 02/26/24 05/07/24 History citrate)-vitamin D3 5 mcg (200 unit) tablet (Calcium Citrate + D) carvedilol 6.25 mg tablet 6.25 mg PO Q12H 02/26/24 05/07/24 History cyanocobalamin (vitamin B-12) 1,000 mcg PO DAILY 02/26/24 05/07/24 History 1,000 mcg tablet (Vitamin B-12) furosemide 20 mg tablet 20 mg PO Q12H 02/26/24 05/07/24 History glipizide 10 mg tablet 10 mg PO BID 02/26/24 05/07/24 History hydralazine 50 mg tablet 100 mg PO Q8H 02/26/24 05/07/24 History insulin glargine 100 unit/mL (3 24 unit subcut BID 02/26/24 05/07/24 History mL) subcutaneous pen multivitamin (Daily Multi-Vitamin 1 tab PO DAILY 02/26/24 05/07/24 History tablet) omeprazole 20 mg capsule,delayed 20 mg PO DAILY 02/26/24 05/07/24 History release semaglutide 1 mg/dose (4 mg/3 mL) 1 mg subcut QWEEK 02/26/24 05/07/24 History subcutaneous pen injector (Ozempic) simvastatin 20 mg tablet 20 mg PO DAILY 02/26/24 05/07/24 History spironolactone 25 mg tablet 25 mg PO DAILY 02/26/24 05/07/24 History terazosin 10 mg capsule 10 mg PO BEDTIME 02/26/24 05/07/24 History fluconazole 200 mg tablet 400 mg PO Q24H 04/16/24 05/07/24 History finasteride 5 mg tablet 5 mg PO DAILY 05/03/24 05/07/24 History albuterol sulfate 2.5 mg/3 mL 2.5 mg (3 mL) inhalation Q4H PRN 05/06/24 05/07/24 Rx (0.083 %) solution for nebulization bronchospasm #90 mL levofloxacin 750 mg tablet 750 mg PO DAILY 10 days #10 tabs 05/06/24 05/07/24 Rx prednisone 10 mg tablet 30 mg (3 x 10 mg) PO DAILY #20 tabs 05/06/24 05/07/24 Rx Allergies Allergy/AdvReac Type Severity Reaction Status Date / Time fosinopril (From Monopril) Allergy Severe shortness Verified 05/07/24 17:03 of breath metoprolol Allergy Severe shortness Verified 05/07/24 17:03 of breath strawberry Allergy Severe Rash Verified 05/07/24 17:03 Exam Constitutional Vital Signs, click to edit/add: Last Vital Signs Temp 97.8 F 05/08/24 01:17 Pulse 76 05/08/24 06:47 Resp 20 05/08/24 06:47 BP 127/72 05/08/24 06:47 Pulse Ox 92 L 05/08/24 06:47 O2 Del Method Nasal Cannula 05/08/24 06:47 O2 Flow Rate 4 05/08/24 06:47 FiO2 40 05/08/24 04:34 Documenting provider has reviewed patient's vital signs: yes Common normals: apparent distress (Mild respiratory distress with mild conversational dyspnea) Exam limitations: no altered mental status Chest Common normals: inspection of chest normal Respiratory Common normals: abnormal respiratory effort (Mild respiratory distress with mild conversational dyspnea) Auscultation: rales and rhonchi; no wheezes Cardio Common normals: regular rate and regular rhythm GI Common normals: Normal to inspection, nondistended, normoactive bowel sounds present and soft to palpation Extremity Common normals: abnormal to inspection (1-2+ edema elevated from his baseline) Results Labs Labs: Short CBC 05/07/24 05/08/24 Range/Units 17:05 04:52 WBC 12.9 H 6.3 (4.0-11.0) 10^3/uL Hgb 9.6 L 9.0 L (14.0-18.0) g/dL Hct 28.0 L 27.2 L (42.0-54.0) % Plt Count 139 L 123 L (150-450) 10^3/uL BMP 05/07/24 05/08/24 17:05 04:52 Sodium 134 L 136 Potassium 4.5 4.1 Chloride 101 103 Carbon Dioxide 24.1 23.5 BUN 83.0 H* 77.0 H* Creatinine 2.53 H 2.42 H Glucose 110 H 77 Calcium 8.7 8.7 Liver Function 05/07/24 05/08/24 Range/Units 17:05 04:52 Total Bilirubin 0.4 0.5 (0.2-1.0) mg/dL AST 15 12 L (15-37) U/L ALT 29 26 (16-63) U/L Alkaline Phosphatase 54 50 (46-116) U/L Albumin 2.6 L 2.5 L (3.4-5.0) g/dL ABG ABG results: 05/07/24 17:05 VBG pH 7.448 H VBG pCO2 30.1 L Assessment and Plan Assessment and Plan (1) Hypoxia: (2) Congestive heart failure: (3) Pneumonia: (4) Acute respiratory distress: Plan Admission findings: Respiratory distress, uncontrolled hypertension, acute hypoxia with O2 sat of 85% on 2 L, leukocytosis with left shift consistent with bacterial process, thrombocytopenia with acute kidney injury stage I due to bilateral lower lobe pneumonia Bilateral lower lobe pneumonia possibly hospital-acquired, continue with Zosyn but change patient to linezolid to protect kidneys. Consult to pulmonology. Acute combined congestive heart failure, patient started on Bumex drip, so far good diuresis but not excellent, consult to cardiology, repeat echocardiogram, try patient on Invokana, unable to use Entresto secondary to history of allergy to ANLINI inhibitors, cut back on Norvasc as a potential cause for the peripheral edema, increased beta-howie Thrombocytopenia likely secondary to the infection as outlined above, continue to monitor Acute kidney injury as outlined above-baseline creatinine of 1.66, admission creatinine of 2.53 which equals 152.4% above baseline, decreased urinary output in the previous 6 hours replacement stage I-monitor daily Moderate protein calorie malnutrition-diet supplement Hypertension-continue medications as outlined above Atrial fibrillation-maintain anticoagulation BPH-maintain current medications NIDDM-insulin sliding scale GERD-maintain current medications Hypercholesterolemia maintain current medications Admission status: Patient with failed outpatient treatment and now potentially d ue to healthcare acquired pneumonia, with acute combined congestive heart failure complicating the overall picture, medically necessary treatment will span 2 midnights. Inpatient status. Urinary Catheter Management Urinary Catheter Management Urethral: Cath placed during this visit: no
[2024-05-08] MEDS: FOLIC ACID/VIT B6/VIT B12 TABLET 1 TAB PO (08:24)
[2024-05-08] MEDS: PREDNISONE 20 MG TABLET PO ×2 (08:24→22:05)
[2024-05-08] MEDS: APIXABAN 5 MG TABLET PO ×2 (08:24→22:05)
[2024-05-08] MEDS: CANAGLIFLOZIN 100 MG TABLET PO (08:24)
[2024-05-08] MEDS: OMEPRAZOLE 20 MG CAPSULE.DR PO (08:24)
[2024-05-08] MEDS: GLIPIZIDE 10 MG TABLET PO (08:25)
[2024-05-08] MEDS: CARVEDILOL 6.25 MG TABLET 12.5 MG PO ×2 (08:25→22:06)
[2024-05-08] MEDS: ATORVASTATIN CALCIUM 10 MG TABLET PO (08:25)
[2024-05-08] MEDS: FINASTERIDE 5 MG TABLET PO (08:25)
[2024-05-08] MEDS: ALLOPURINOL 300 MG TABLET PO (08:25)
[2024-05-08] MEDS: ASPIRIN 81 MG TABLET.DR PO (08:26)
[2024-05-08] MEDS: ENSURE HP 237 ML LIQUID PO ×2 (08:26→22:04)
[2024-05-08] MEDS: LINEZOLID IN DEXTROSE 5% 600 MG/300 ML PIGGYBACK 300 MG IV ×2 (08:26→22:08)
--- NOTE | 2024-05-08 09:52 | SWNOTE1 ---
Pt has [facility] and wears 2 liters of home oxygen. SW had consult to speak to pt about long-term facility for rehab.
--- NOTE | 2024-05-08 10:07 | P.CACN_ITS ---
History of Present Illness History of Present Illness Consult date: 05/08/24 Requesting physician: Jayy Dutta Consult reason: congestive heart failure Chief complaint: BL PNEUMONIA RESPIRATORY DISTRESS CHF Narrative: PER CHART: 04/19/2024 Patient is a 78 y/o M with known medical hx of HFpEF, permanent pacemaker placement, COPD, a.fib on Eliquis, CKD, HTN, DM who presented to [facility] with c/o worsening SOB. He had recently be admitted to [facility] and treated for PNA. He had been feeling better until the day of this admission where he noted his SOB worsened and he had c/o chills. This admission he was diagnosed with PNA, ARA on CKD, and COPD exacerbation. Cardiology has been consulted to assist with heart failure management. His NTproBNP has persistently elevated and further elevated from 19,000 -> 9,000 -> 26,000. His WBC had intially improved and has since worsened (11.9 -> 9.9 ->7 -> 16.8 -> 17.2). CXR this AM showed evidence of worsening PNA. CT Chest today confirmed these findings along with small to moderate bilateral pleural effusions. Hospitalist adjusted his antibiotics and consulted pulmonary team to help with PNA management. Bumex gtt has been started by hospitalist for fluid management. Patient seen and examined at bedside. He states he overall doesn't feel worse. He has some SANTANA but this feels improved from when he was admitted. He notes orthopnea but this has been present for some time. He has a cough that is inter mittently dry and productive. He denies CP, palpitations, dizziness, LE edema. He remains on supplemental O2 at 1lpm via [place]. 05/08/2024 Patient with recent hospitalization, Re-presented to the emergency room with increasing cough and shortness of breath and found to have bilateral lower lobe pneumonia, significant peripheral edema at that time as well, his BNP is chronically elevated, with the need for BiPAP he was placed in the intensive care unit Per my evaluation: He denies fevers or chills. His main complaint is severe SOB whenever he walks and indeed at rest. Denies chest pain. He has orthopnea and significant lower extremity swelling. He has a cough productive of clear phlegm with occasional blood tinged sputum. Review of Systems ROS Status of ROS 10 or more systems reviewed and unremark able except as noted in history and below Constitutional Reports: change in weight Cardiovascular Reports: edema, swelling of feet/ankles, lightheadedness, shortness of breath with exertion and shortness of breath when lying down Respiratory Reports: shortness of breath, cough, change in phlegm color and chest congestion [facility] Medical History (Updated 05/08/24 @ 12:17 by Veronica Kim MD) Hospital acquired PNA ?J18.9 - Pneumonia, unspecified organism (ICD-10) ?Y95 - Nosocomial condition (ICD-10) Shortness of breath ?R06.02 - Shortness of breath (ICD-10) Congestive heart failure ?I50.9 - Heart failure, unspecified (ICD-10) Pneumonia ?J18.9 - Pneumonia, unspecified organism (ICD-10) Severe sepsis ?A41.9 - Sepsis, unspecified organism (ICD-10) ?R65.20 - Severe sepsis without septic shock (ICD-10) COPD exacerbation ?J44.1 - Chronic obstructive pulmonary disease with (acute) exacerbation (ICD-10) Acute exacerbation of chronic heart failure ?I50.9 - Heart failure, unspecified (ICD-10) Acute hypoxemic respiratory failure ?J96.01 - Acute respiratory failure with hypoxia (ICD-10) Acute kidney injury ?N17.9 - Acute kidney failure, unspecified (ICD-10) Bladder spasm ?N32.89 - Other specified disorders of bladder (ICD-10) Urinary tract infection ?N39.0 - Urinary tract infection, site not specified (ICD-10) Urinary tract infection ?N39.0 - Urinary tract infection, site not specified (ICD-10) Failure of outpatient treatment ?Z78.9 - Other specified health status (ICD-10) Urinary tract infection ?N39.0 - Urinary tract infection, site not specified (ICD-10) Skin cancer ?C44.90 - Unspecified malignant neoplasm of skin, unspecified (ICD-10) Myocardial infarction ?I21.9 - Acute myocardial infarction, unspecified (ICD-10) Pacemaker ?Z95.0 - Presence of cardiac pacemaker (ICD-10) CKD (chronic kidney disease) ?N18.9 - Chronic kidney disease, unspecified (ICD-10) CAD (coronary artery disease) ?I25.10 - Atherosclerotic heart disease of [place] coronary artery without angina pectoris (ICD-10) A-fib ?I48.91 - Unspecified atrial fibrillation (ICD-10) Erectile dysfunction ?N52.9 - Male erectile dysfunction, unspecified (ICD-10) UTI (urinary tract infection) ?N39.0 - Urinary tract infection, site not specified (ICD-10) GERD (gastroesophageal reflux disease) ?K21.9 - Gastro-esophageal reflux disease without esophagitis (ICD-10) Hypertension ?I10 - Essential (primary) hypertension (ICD-10) Diabetes ?E11.9 - Type 2 diabetes mellitus without complications (ICD-10) Surgical History History of arthroscopic knee surgery ?Z98.890 - Other specified postprocedural states (ICD-10) Hx of tonsillectomy ?Z90.89 - Acquired absence of other organs (ICD-10) Family History Mother Family history of CHF (congestive heart failure) Family history of myocardial infarction Family history of hypertension Family history of diabetes mellitus Family history of COPD (chronic obstructive pulmonary disease) Grandmother Family history of CHF (congestive heart failure) Brother Family history of CHF (congestive heart failure) Family history of myocardial infarction Family history of hypertension Family history of COPD (chronic obstructive pulmonary disease) Father Kidney failure Social History Within the past year, how often did you have a drink containing alcohol: never Score interpretation: A score less than 4 is consistent with normal alcohol consumption. Smoking status: Former smoker Non-prescribed substance use: denies use Known occupational exposures/hazards: No Highest level of school completed/degree received: some college, no degree Do you want help with school or training: No Little interest or pleasure in doing things: not at all Feeling down, depressed, or hopeless: not at all Gender Identity: male Meds Home Medications and Allergies Home Medications ?Medication ?Instructions ?Recorded ?Confirmed ?Type acetaminophen 500 mg capsule 1,000 mg PO Q6H PRN fever or pain 02/26/24 05/07/24 History allopurinol 300 mg tablet 300 mg PO DAILY 02/26/24 05/07/24 History amlodipine 10 mg tablet 10 mg PO DAILY 02/26/24 05/07/24 History apixaban 5 mg tablet (Eliquis) 5 mg PO Q12H 02/26/24 05/07/24 History aspirin 81 mg tablet,delayed 81 mg PO .weekly 02/26/24 05/07/24 History release (Adult Aspirin Regimen) calcium 315 mg (as 1 tab PO DAILY 02/26/24 05/07/24 History citrate)-vitamin D3 5 mcg (200 unit) tablet (Calcium Citrate + D) carvedilol 6.25 mg tablet 6.25 mg PO Q12H 02/26/24 05/07/24 History cyanocobalamin (vitamin B-12) 1,000 mcg PO DAILY 02/26/24 05/07/24 History 1,000 mcg tablet (Vitamin B-12) furosemide 20 mg tablet 20 mg PO Q12H 02/26/24 05/07/24 History glipizide 10 mg tablet 10 mg PO BID 02/26/24 05/07/24 History hydralazine 50 mg tablet 100 mg PO Q8H 02/26/24 05/07/24 History insulin glargine 100 unit/mL (3 24 unit subcut BID 02/26/24 05/07/24 History mL) subcutaneous pen multivitamin (Daily Multi-Vitamin 1 tab PO DAILY 02/26/24 05/07/24 History tablet) omeprazole 20 mg capsule,delayed 20 mg PO DAILY 02/26/24 05/07/24 History release semaglutide 1 mg/dose (4 mg/3 mL) 1 mg subcut QWEEK 02/26/24 05/07/24 History subcutaneous pen injector (Ozempic) simvastatin 20 mg tablet 20 mg PO DAILY 02/26/24 05/07/24 History spironolactone 25 mg tablet 25 mg PO DAILY 02/26/24 05/07/24 History terazosin 10 mg capsule 10 mg PO BEDTIME 02/26/24 05/07/24 History fluconazole 200 mg tablet 400 mg PO Q24H 04/16/24 05/07/24 History finasteride 5 mg tablet 5 mg PO DAILY 05/03/24 05/07/24 History albuterol sulfate 2.5 mg/3 mL 2.5 mg (3 mL) inhalation Q4H PRN 05/06/24 05/07/24 Rx (0.083 %) solution for nebulization bronchospasm #90 mL levofloxacin 750 mg tablet 750 mg PO DAILY 10 days #10 tabs 05/06/24 05/07/24 Rx prednisone 10 mg tablet 30 mg (3 x 10 mg) PO DAILY #20 tabs 05/06/24 05/07/24 Rx Allergies Allergy/AdvReac Type Severity Reaction Status Date / Time fosinopril (From Monopril) Allergy Severe shortness Verified 05/07/24 17:03 of breath metoprolol Allergy Severe shortness Verified 05/07/24 17:03 of breath strawberry Allergy Severe Rash Verified 05/07/24 17:03 Exam Narrative Exam Narrative: Appears uncomfortable at rest Constitutional Vital Signs, click to edit/add: Last Vital Signs Temp 97.7 F 05/08/24 08:00 Pulse 76 05/08/24 08:00 Resp 20 05/08/24 06:47 BP 127/72 05/08/24 06:47 Pulse Ox 92 L 05/08/24 06:47 O2 Del Method Nasal Cannula 05/08/24 06:47 O2 Flow Rate 4 05/08/24 06:47 FiO2 40 05/08/24 04:34 Documenting provider has reviewed patient's vital signs: yes Common normals: no apparent distress (tachypneic) and well nourished (appears thin ) General appearance: cooperative and frail appearing Nutritional appearance: thin Orientation/consciousness: Yes awake, Yes oriented to person, Yes oriented to place and Yes oriented to time HENMT Head and scalp: normal to inspection Chest Common normals: inspection of chest normal Respiratory Effort & inspection: prolonged expiratory phase Auscultation: diminished lung sounds and bronchial breath sounds Other: decreased air entry bilaterally at the bases Cardio Common normals: regular rate Jugular venous distention: other (no JVD sitting upright) Rhythm: regular rhythm Heart sounds: S1 normal and S2 normal Extremity Other: 2 + pitting edema bilaterally to the knees Results Labs and Meds Lab results: Cardiac Enzymes 05/07/24 05/08/24 Range/Units 17:05 04:52 AST 15 12 L (15-37) U/L Coagulation 05/07/24 Range/Units 17:05 PT 11.8 H (9.0-11.6) sec CBC 05/07/24 05/08/24 Range/Units 17:05 04:52 WBC 12.9 H 6.3 (4.0-11.0) 10^3/uL RBC 2.95 L 2.86 L (4.70-6.10) 10^6/uL Hgb 9.6 L 9.0 L (14.0-18.0) g/dL Hct 28.0 L 27.2 L (42.0-54.0) % Plt Count 139 L 123 L (150-450) 10^3/uL Neut # (Auto) 6.0 (1.4-6.5) 10^3/uL Lymph # (Auto) 0.2 L (1.2-3.8) 10^3/uL [place] # (Auto) 0.1 L (0.3-0.8) 10^3/uL Eos # (Auto) 0.0 (0.0-0.7) 10^3/uL Baso # (Auto) 0.0 (0.0-0.1) 10^3/uL Comprehensive Metabolic Panel 05/07/24 05/08/24 Range/Units 17:05 04:52 Sodium 134 L 136 (136-145) mmol/L Potassium 4.5 4.1 (3.5-5.1) mmol/L Chloride 101 103 (98-107) mmol/L Carbon Dioxide 24.1 23.5 (21.0-32.0) mmol/L BUN 83.0 H* 77.0 H* (7.0-18.0) mg/dL Creatinine 2.53 H 2.42 H (0.70-1.30) mg/dL Glucose 110 H 77 (74-106) mg/dL Calcium 8.7 8.7 (8.5-10.1) mg/dL AST 15 12 L (15-37) U/L ALT 29 26 (16-63) U/L Alkaline Phosphatase 54 50 (46-116) U/L Total Protein 5.6 L 5.4 L (6.4-8.2) g/dL Albumin 2.6 L 2.5 L (3.4-5.0) g/dL Intake and Output 05/07/24 05/08/24 05/08/24 23:59 07:59 15:59 Intake Total 550 / 1200 650 / 1200 300 / 300 Output Total 1800 / 1800 Balance 550 / -600 -1150 / -600 300 / 300 Intake: Oral 400 / 400 IV 550 / 800 250 / 800 300 / 300 Bumetanide 10 mg In 0.9 % 200 / 200 Sodium Chloride 160 ml @ 20 mls /hr IV ONCE ONE Rx#:[id number] Linezolid in Dextrose 5% 600 mg 300 / 300 In 300 ml @ 300 mls/hr IV Q12H BRYAN Rx#:[id number] Piperacillin Sodium/Tazobactam 50 / 50 3.375 gm In 0.9 % Sodium Chloride 50 ml @ 12.5 mls/hr IV Q8H BRYAN Rx#:[id number] Piperacillin Sodium/Tazobactam 50 / 50 4.5 gm In 0.9 % Sodium Chloride 50 ml @ 100 mls/hr IV ONCE ONE Rx#:[id number] Vancomycin HCl 1,500 mg In 0.9 500 / 500 % Sodium Chloride 500 ml @ 250 mls/hr IV ONCE ONE Rx#:[id number] Output: Urine Amount (Catheter) 1800 / 1800 Urethral 1800 / 1800 Other: Weight 95.[address] [place] [address] XRay Report Signed Patient: LEIGHTON ARCINIEGA MR#: [id number] : 1945 Acct:[id number] Age/Sex: 78 / M ADM Date: 05/07/24 Loc: ER Attending Dr: Ordering Physician: Fredi Rader Date of Service: 05/07/24 Procedure(s): XR chest 1V Accession Number(s): [id number] cc: Jayy Dutta M.D.; Fredi Rader~ [facility] [place] [id number] Patient Name: LEIGHTON ARCINIEGA MRN: [id number] date: 1945 Sex: M Assigned Patient Location: ER Current Patient Location: ED.MAIN Accession/Order Number: [id number] Exam Date: 05/07/2024 16:58 Report Date: 05/07/2024 17:58 At the request of: FREDI RADER Procedure: XR chest 1V EXAM: XR chest 1V HISTORY: Shortness of breath COMPARISON: Chest imaging 05/02/2024 and earlier including chest x-ray and CT TECHNIQUE: AP upright chest x-ray. FINDINGS: Diffuse bilateral airspace density progressive since 05/02/2024 with increasing areas of dense consolidation. Asymmetric with findings most prominent on the right most consistent with bilateral pneumonia. Cannot exclude a component of superimposed edema from failure. Cardiac enlargement unchanged. Pacemaker leads again noted. Questionable small pleural effusions. No pneumothorax. XR/XR chest 1V IMPRESSION: Progressive bilateral airspace density most consistent with bilateral pneumonia most extensive on the right. Cannot exclude component of superimposed edema from heart failure. Electronically authenticated by: AWILDA HELLER Date: 05/07/2024 17:58 Imaging and Cardiology Echo: other (Echo today shows and EF of 15-20%, diffuse hypokinesis) ECG results: report reviewed Assessment and Plan Assessment and Plan (1) Hypoxia: (2) Congestive heart failure: Assessment and Plan: Newly diagnosed HFrEF with an EF of 15-20% Qualifiers: Heart failure chronicity: acute on chronic Heart failure type: combined systolic and diastolic Qualified Code(s): I50.43 - Acute on chronic combined systolic (congestive) and diastolic (congestive) heart failure (3) Pneumonia: Assessment and Plan: Questionable: no fever, no chills, normal WBCs (4) Acute respiratory distress: Assessment and Plan: acute hypoxic respiratory failure (5) A-fib: Qualifiers: Atrial fibrillation type: paroxysmal Qualified Code(s): I48.0 - Paroxysmal atrial fibrillation (6) Diabetes: Qualifiers: Chronic kidney disease stage: stage 3 (moderate) Chronic kidney disease stage 3 subtype: stage 3b (GFR 30-44) Diabetes mellitus complication detail: with chronic kidney disease Diabetes mellitus complication status: with kidney complications Diabetes mellitus senior living insulin use: without intermediate accountant use Diabetes mellitus type: type 2 Qualified Code(s): E11.22 - Type 2 diabetes mellitus with diabetic chronic kidney disease; N18.32 - Chronic kidney disease, stage 3b (7) Hypertension: Qualifiers: Hypertension type: primary hypertension Qualified Code(s): I10 - Essential (primary) hypertension (8) Pacemaker: (9) CKD (chronic kidney disease): Qualifiers: Chronic kidney disease stage: stage 3 (moderate) Chronic kidney disease stage 3 subtype: stage 3b (GFR 30-44) Qualified Code(s): N18.32 - Chronic kidney disease, stage 3b (10) Acute exacerbation of chronic heart failure: (11) CAD (coronary artery disease): Qualifiers: Coronary Disease-Associated Artery/Lesion type: [place] artery [place] vs. transplanted heart: [place] heart Associated angina: without angina Qualified Code(s): I25.10 - Atherosclerotic heart disease of [place] coronary artery without angina pectoris Plan The patient has symptoms and signs of severely decompensated heart failure with reduced ejection fraction, with a known h/o CAD, AF, and CKD 1. Routine labs: trend Troponins, BNP, check Procalcitonin, CRP and ESR, blood cultures x2 2. Continue IV diuresis, strict Is/Os and daily weights 3. Treat comorbid conditions as clinically appropriate; empiric antibiotics as appropriate 4. Will need GDMT for CAD and HFrEF when and if feasible given acute on chronic kidney disease 5. Would transfer to a tertiary care facility with pharmacy laboratory technician capabilities; he will likely need RHC and ultimately coronary angiography given the newly reduced EF% Thank you for the consultation Veronica Kim MD [facility] Cardiovascular Medicine
--- NOTE | 2024-05-08 10:39 | SWNOTE1 ---
Important Message from Medicare reviewed and discussed with patient. Pt. verbalized understanding and signed the form. Original given to patient and copy placed in patient?s chart.
--- NOTE | 2024-05-08 10:40 | SWNOTE1 ---
DARRIUS met with pt to discuss dc needs. Pt lives at home with his . Pt wears 2 liters of home oxygen from [facility]. Pt has [facility] coming in. SW consulted to discuss SNF with patient. Pt has voiced agreement and does not feel he can do it at home right now as he is weaker and not feeling as well. Pt lives in [place]. DARRIUS provided list from Medicare.gov with star ratings. Pt wants either [facility] or [facility]. SW to check both and come back to let pt know. Pt would like for his daughter to be here as well, his is not able to make it today. DARRIUS updated pt's nurse. Nurse voiced possibility of transfer. SW to still reach out to SNF. DARRIUS sent message to Yamini at [facility] and Christine at [facility], waiting to hear back.
--- NOTE | 2024-05-08 10:43 | SWNOTE1 ---
[facility] will have bed Wednesday.
--- NOTE | 2024-05-08 11:31 | SWNOTE1 ---
SW stopped back in to speak with pt's daughter in room. SW did explain that pt would benefit from rehab and pt is agreeable. Daughter agrees as well. They are in agreement with [facility] or [place]. DARRIUS explained that DARRIUS has sent message to both, and waiting to hear back. DARRIUS did explain to pt and daughter the guidelines for Medicare and SNF. They voiced understanding.
--- NOTE | 2024-05-08 11:33 | SWNOTE1 ---
Both [facility] and [facility] do have openings.
[2024-05-08] MEDS: INSULIN ASPART 300 UNIT/3 ML PEN SUBQ ×2 (11:45→16:58)
[2024-05-08 11:52] LABS: Glucometer 251 mg/dL (74-106)
--- NOTE | 2024-05-08 15:53 | SWNOTE1 ---
Pt is being transferred to higher level of care. SW spoke to pt and daughter to let them know if he does still need rehab after getting treated that [facility] and [facility] did have beds.
[2024-05-08] MEDS: TERAZOSIN HCL 5 MG CAPSULE 10 MG PO (22:08)
[2024-05-09] VITALS (23 sets, daily range): BP systolic 124–137; BP diastolic 55–72; PULSE 70–87; RESP 16; TEMP 36.4–36.7; O2SAT 75–97
[2024-05-09] MEDS: PIPERACILLIN SODIUM/TAZOBACTAM 3.375 GM in 0.9 % SODIUM CHLORIDE 50 ML IV ×2 (02:17→09:14)
[2024-05-09] MEDS: IPRATROPIUM/ALBUTEROL SULFATE 3 ML AMPUL.NEB IH ×3 (04:00→16:28)
[2024-05-09] MEDS: HYDRALAZINE HCL 50 MG TABLET 100 MG PO ×2 (05:03→13:51)
[2024-05-09 05:28] LABS: Basophils Percent Auto 0.1 % (0.2-2.0); Eosinophils Percent Auto 0.1 % (0.9-7.0); Hematocrit 26.6 % (42.0-54.0); Hemoglobin 8.7 g/dL (14.0-18.0); Immature Granulocytes Abs Auto 0.04 10^3/uL (0.00-0.03); Immature Granulocytes Pct Auto 0.4 % (0.0-0.5); Lymphocytes Absolute Auto 0.4 10^3/uL (1.2-3.8); Lymphocytes Percent Auto 4.4 % (20.5-60.0); Mean Corpuscular HGB Conc 32.7 g/dL (29.9-35.2); Mean Corpuscular Hemoglobin 31.2 pg (25.9-34.0); Mean Corpuscular Volume 95.3 fL (80.0-94.0); Mean Platelet Volume 9.2 fL (9.5-13.5); Monocytes Absolute Auto 0.5 10^3/uL (0.3-0.8); Neutrophils Absolute Auto 8.1 10^3/uL (1.4-6.5); Platelet Count 118 10^3/uL (150-450); Red Blood Count 2.79 10^6/uL (4.70-6.10); Red Cell Distribution Width 15.8 % (11.0-15.0); White Blood Count 9.1 10^3/uL (4.0-11.0)
[2024-05-09 05:39] LABS: Anion Gap 12.5; BUN Creatinine Ratio 34.7; Calcium 8.8 mg/dL (8.5-10.1); Carbon Dioxide 24.8 mmol/L (21.0-32.0); Chloride 103 mmol/L (98-107); Estimated GFR (African America 31 (>=60 mL/min/1.73m^2); Estimated GFR (Non-African Ame 26 (>=60 mL/min/1.73m^2); Glucose 275 mg/dL (74-106); Potassium 4.3 mmol/L (3.5-5.1); Sodium 136 mmol/L (136-145)
--- NOTE | 2024-05-09 06:37 | P.DS_ITS ---
DS: Providers Provider Date of admission: 05/07/24 18:56 Primary care physician: Jayy Dutta MD Consults: 05/07/24 20:23 Consult to Pharmacy Routine Consulting Provider: Aura Damon Reason for consultation: renal dosing for medications Has provider been notified: No 05/08/24 06:43 Consult to Cardiology Routine Reason for consultation: chf Has provider been notified: No Consult to Pulmonology Routine Consulting Provider: Rick Roy Reason for consultation: pna 05/08/24 06:47 Occupational Therapy Eval and Treat Routine Reason for consultation: Only if needed for Rehab Has provider been notified: No Physical Therapy Eval and Treat Routine Reason for consultation: Eval and Treat Has provider been notified: No 05/08/24 07:45 Consult to Senior Windows Engineer Routine Reason for consult:: Prison Other reason:: Placement DS: Diagnosis Discharge Diagnosis (1) Hypoxia: (2) Congestive heart failure: Qualifiers: Heart failure chronicity: acute on chronic Heart failure type: combined systolic and diastolic Qualified Code(s): I50.43 - Acute on chronic combined systolic (congestive) and diastolic (congestive) heart failure (3) Pneumonia: (4) Acute respiratory distress: (5) A-fib: Qualifiers: Atrial fibrillation type: paroxysmal Qualified Code(s): I48.0 - Paroxysmal atrial fibrillation (6) Diabetes: Qualifiers: Chronic kidney disease stage: stage 3 (moderate) Chronic kidney disease stage 3 subtype: stage 3b (GFR 30-44) Diabetes mellitus complication detail: with chronic kidney disease Diabetes mellitus complication status: with kidney complications Diabetes mellitus fci insulin use: without extermination supervisor use Diabetes mellitus type: type 2 Qualified Code(s): E11.22 - Type 2 diabetes mellitus with diabetic chronic kidney disease; N18.32 - Chronic kidney disease, stage 3b (7) Hypertension: Qualifiers: Hypertension type: primary hypertension Qualified Code(s): I10 - Ess ential (primary) hypertension (8) Pacemaker: (9) CKD (chronic kidney disease): Qualifiers: Chronic kidney disease stage: stage 3 (moderate) Chronic kidney disease stage 3 subtype: stage 3b (GFR 30-44) Qualified Code(s): N18.32 - Chronic kidney disease, stage 3b (10) Acute exacerbation of chronic heart failure: (11) CAD (coronary artery disease): Qualifiers: Associated angina: without angina Coronary Disease-Associated Artery/Lesion type: [place] artery [place] vs. transplanted heart: [place] heart Qualified Code(s): I25.10 - Atherosclerotic heart disease of [place] coronary artery without angina pectoris Plan Admission findings: Respiratory distress, uncontrolled hypertension, acute hypoxia with O2 sat of 85% on 2 L, leukocytosis with left shift consistent with bacterial process, thrombocytopenia with acute kidney injury stage I due to bilateral lower lobe pneumonia Bilateral lower lobe pneumonia possibly hospital-acquired, continue with Zosyn but change patient to linezolid to protect kidneys. Consult to pulmonology. Acute combined congestive heart failure with severely reduced EF (New since 04/15), bumex drip X2 - added invokana(availability at [facility], Jardiance as OP) and imdur Thrombocytopenia likely secondary to the infection as outlined above, continue to monitor Acute kidney injury as outlined above-baseline creatinine of 1.66, admission creatinine of 2.53 which equals 152.4% above baseline, likely to deteriorate with Moderate protein calorie malnutrition-diet supplement Hypertension-continue medications as outlined above Atrial fibrillation-maintain anticoagulation BPH-maintain current medications NIDDM-insulin sliding scale GERD-maintain current medications Hypercholesterolemia maintain current medications Admission status: Patient with failed outpatient treatment and now potentially due to healthcare acquired pneumonia, with acute combined congestive heart failure complicating the overall picture, medically necessary treatment will span 2 midnights. Inpatient status. DS: Summary Hospital Course Hospital Course: Patient with recurrent admission for shortness of breath, possible nosocomial pneumonia noted on initial chest x-ray, BNP has been chronically elevated since March, high-sensitivity troponins were negative since March with several admissions in that timeframe, echocardiogram was repeated from the 1 in March due to the deterioration in his overall status, repeat echocardiogram shows a reduced ejection fraction of 15 to 20%, his echocardiogram back in March showed an ejection fraction of 50%, case was discussed with cardiology at [facility], who agreed to accept patient in transfer for further cardiac workup, patient pending transfer at this time. Good diuresis overnight, Bumex drip completed yesterday with output of 5 L with a net of 3.1 L, will restart Bumex drip today, creatinine is elevated from his baseline, but only minimally so from admission with the Bumex drip tolerated well. Medications see list. See me in the office after discharge from [facility]'s Status at Discharge Overall status at discharge: patient is not back to baseline Time Spent with Patient Time attestation: Total time spent providing and/or coordinating discharge services: Time spent: greater than 30 minutes Exam Constitutional Vital Signs, click to edit/add: Last Vital Signs Temp 97.6 F 05/09/24 05:03 Pulse 73 05/09/24 06:00 Resp 20 05/09/24 05:03 BP 137/66 05/09/24 05:03 Pulse Ox 96 05/09/24 06:00 O2 Del Method BIPAP 05/09/24 04:00 O2 Flow Rate 4 05/08/24 16:23 FiO2 40 05/09/24 04:00 Documenting provider has reviewed patient's vital signs: yes Common normals: no apparent distress (Respiratory distress is resolved) Exam limitations: no altered mental status Chest Common normals: inspection of chest normal Respiratory Common normals: normal respiratory effort (Respiratory distress is resolved) Auscultation: rales and rhonchi; no wheezes Cardio Common normals: regular rate and regular rhythm GI Common normals: Normal to inspection, nondistended, normoactive bowel sounds present and soft to palpation Extremity Common normals: abnormal to inspection (1-2+ edema elevated from his baseline) DS: Data Data Completed and Pending Labs on day of discharge: Labs from last 24 hours 05/09/24 05/08/24 05:04 11:40 WBC 9.1 RBC 2.79 L Hgb 8.7 L Hct 26.6 L MCV 95.3 H MCH 31.2 MCHC 32.7 RDW 15.8 H Plt Count 118 L MPV 9.2 L Neut % (Auto) 90.0 H Lymph % (Auto) 4.4 L [place] % (Auto) 5.0 Eos % (Auto) 0.1 L Baso % (Auto) 0.1 L Neut # (Auto) 8.1 H Lymph # (Auto) 0.4 L [place] # (Auto) 0.5 Eos # (Auto) 0.0 Baso # (Auto) 0.0 Abs Immat Gran (auto) 0.04 H Imm/Tot Granulo (auto) 0.4 Sodium 136 Potassium 4.3 Chloride 103 Carbon Dioxide 24.8 Anion Gap 12.5 BUN 85.0 H* Creatinine 2.45 H Est GFR ( Amer) 31 L Est GFR (Non-Af Amer) 26 L BUN/Creatinine Ratio 34.7 Glucose 275 H Calcium 8.8 POC Glucose 251 H Discharge Plan Discharge Disposition: Xfer Acute Care Hospital Discharge Date/Time: 05/09/24 18:42
[2024-05-09] MEDS: ENSURE HP 237 ML LIQUID PO (08:20)
[2024-05-09] MEDS: ALLOPURINOL 300 MG TABLET PO (08:21)
[2024-05-09] MEDS: PREDNISONE 20 MG TABLET PO (08:21)
[2024-05-09] MEDS: FINASTERIDE 5 MG TABLET PO (08:21)
[2024-05-09] MEDS: OMEPRAZOLE 20 MG CAPSULE.DR PO (08:21)
[2024-05-09] MEDS: GLIPIZIDE 10 MG TABLET PO (08:21)
[2024-05-09] MEDS: ATORVASTATIN CALCIUM 10 MG TABLET PO (08:21)
[2024-05-09] MEDS: CANAGLIFLOZIN 100 MG TABLET PO (08:21)
[2024-05-09] MEDS: CARVEDILOL 6.25 MG TABLET 12.5 MG PO (08:21)
[2024-05-09] MEDS: APIXABAN 5 MG TABLET PO (08:21)
[2024-05-09] MEDS: ISOSORBIDE MONONITRATE 30 MG TAB.ER.24H PO ×2 (08:21→09:13)
[2024-05-09] MEDS: FOLIC ACID/VIT B6/VIT B12 TABLET 1 TAB PO (08:21)
[2024-05-09] MEDS: LINEZOLID IN DEXTROSE 5% 600 MG/300 ML PIGGYBACK 300 MG IV (08:24)
[2024-05-09] MEDS: INSULIN ASPART 300 UNIT/3 ML PEN SUBQ ×3 (08:24→16:41)
[2024-05-09] MEDS: INSULIN GLARGINE 300 UNIT/3 ML INSULN.PEN 24 UNIT SQ (08:26)
[2024-05-09] MEDS: BUMETANIDE 10 MG in 0.9 % SODIUM CHLORIDE 160 ML IV (09:12)
--- NOTE | 2024-05-09 10:31 | PT.DAILY ---
Physical Therapy Daily Note PT Daily Note/Assess Start: 05/09/24 10:29 Freq: Status: Active Protocol: Document 05/09/24 10:10 REX (Rec: 05/09/24 10:31 REX [id number]) Visit Not Completed Visit Not Completed Visit Not Completed Other Due to: Other Reason Visit Patient reports just so exhausted from working with OT, Not Completed SPO2 did decreased to 78 percent with getting up into chair. Wishes to have longer rest break between OT and PT. Will attempt to come back later this AM. Nursing notified. Physical Therapy Daily Note/Assessment Time In/Time Out Time In 10:10 Time Out 10:10 GG. Functional Abilities and Goals-Complete for Swing Bed Patients Only [id number]. Self-Care [id number]. Mobility
--- NOTE | 2024-05-09 10:55 | PT.DAILY ---
Physical Therapy Daily Note PT Daily Note/Assess Start: 05/09/24 10:29 Freq: Status: Active Protocol: Document 05/09/24 10:35 REX (Rec: 05/09/24 10:54 REX [id number]) Physical Therapy Daily Note/Assessment Time In/Time Out Time In 10:35 Time Out 10:48 Subjective Subjective Patient reports will try to do some exercises. Just exhausted. Denies pain. Already up in chair. Therapeutic Exercise Time Therapeutic Exercise 10 Minutes (minutes) Therapeutic Exercise 1 Units Therapeutic Exercise Treatment Therapeutic Exercise Basic seated exercises 2x10 in all planes with rest Treatment breaks to allow for recovery. SPO2 87-89 percent throughout RX. Total Physical Therapy Time Total Therapy 10 Minutes Total Physical 1 Therapy Units Summary Daily Note Summary Patient fatigues very quickly with basic exercises in chair with SPO2 87-89 percent. Did not attempt any distance for ambulation this date due to lower SPO2 levels, SOB and fatigue with just basic level exercises. Plan is for patient to transfer to another acute care facility, at this time would recommend SNF prior to home to restore strength and endurance for basic ADL's and functional movement.
--- NOTE | 2024-05-09 13:35 | PM.PLCN ---
History of Present Illness History of Present Illness Consult date: 05/09/24 Requesting physician: Jayy Dutta Reason for consult: pneumonia Chief complaint: BL PNEUMONIA RESPIRATORY DISTRESS CHF Narrative: I just saw patient last week 05/03 & 05/04/2024 for pneumonia. He was discharged on 05/06/2024 and returned back to [facility] on 05/07/2024 with dyspnea and BLE edema. CXR suggested worsening pneumonia, yet his WBC were in the normal range and he was afebrile. He denies feeling ill such as having a respiratory infection. He was seen by cardiology yesterday. Repeat echo shows EF down to 15-20%. He is awaiting transfer [place] [facility] [place] cardiac w/up (i.e. catheterization). For the abnormal chest CXR, he is now on Zyvox and Zosyn. Review of Systems ROS Status of ROS 10 or more systems reviewed and unremarkable except as noted in history and below [facility] Medical History (Updated 05/09/24 @ 13:39 by Rick Roy DO) Hospital acquired PNA ?J18.9 - Pneumonia, unspecified organism (ICD-10) ?Y95 - Nosocomial condition (ICD-10) Shortness of breath ?R06.02 - Shortness of breath (ICD-10) Congestive heart failure ?I50.9 - Heart failure, unspecified (ICD-10) Pneumonia ?J18.9 - Pneumonia, unspecified organism (ICD-10) Severe sepsis ?A41.9 - Sepsis, unspecified organism (ICD-10) ?R65.20 - Severe sepsis without septic shock (ICD-10) COPD exacerbation ?J44.1 - Chronic obstructive pulmonary disease with (acute) exacerbation (ICD-10) Acute exacerbation of chronic heart failure ?I50.9 - Heart failure, unspecified (ICD-10) Acute hypoxemic respiratory failure ?J96.01 - Acute respiratory failure with hypoxia (ICD-10) Acute kidney injury ?N17.9 - Acute kidney failure, unspecified (ICD-10) Bladder spasm ?N32.89 - Other specified disorders of bladder (ICD-10) Urinary tract infection ?N39.0 - Urinary tract infection, site not specified (ICD-10) Urinary tract infection ?N39.0 - Urinary tract infection, site not specified (ICD-10) Failure of outpatient treatment ?Z78.9 - Other specified health status (ICD-10) Urinary tract infection ?N39.0 - Urinary tract infection, site not specified (ICD-10) Skin cancer ?C44.90 - Unspecified malignant neoplasm of skin, unspecified (ICD-10) Myocardial infarction ?I21.9 - Acute myocardial infarction, unspecified (ICD-10) Pacemaker ?Z95.0 - Presence of cardiac pacemaker (ICD-10) CKD (chronic kidney disease) ?N18.9 - Chronic kidney disease, unspecified (ICD-10) CAD (coronary artery disease) ?I25.10 - Atherosclerotic heart disease of [place] coronary artery without angina pectoris (ICD-10) A-fib ?I48.91 - Unspecified atrial fibrillation (ICD-10) Erectile dysfunction ?N52.9 - Male erectile dysfunction, unspecified (ICD-10) UTI (urinary tract infection) ?N39.0 - Urinary tract infection, site not specified (ICD-10) GERD (gastroesophageal reflux disease) ?K21.9 - Gastro-esophageal reflux disease without esophagitis (ICD-10) Hypertension ?I10 - Essential (primary) hypertension (ICD-10) Diabetes ?E11.9 - Type 2 diabetes mellitus without complications (ICD-10) Surgical History History of arthroscopic knee surgery ?Z98.890 - Other specified postprocedural states (ICD-10) Hx of tonsillectomy ?Z90.89 - Acquired absence of other organs (ICD-10) Family History Mother Family history of CHF (congestive heart failure) Family history of myocardial infarction Family history of hypertension Family history of diabetes mellitus Family history of COPD (chronic obstructive pulmonary disease) Grandmother Family history of CHF (congestive heart failure) Brother Family history of CHF (congestive heart failure) Family history of myocardial infarction Family history of hypertension Family history of COPD (chronic obstructive pulmonary disease) Father Kidney failure Social History Within the past year, how often did you have a drink containing alcohol: never Score interpretation: A score less than 4 is consistent with normal alcohol consumption. Smoking status: Former smoker Non-prescribed substance use: denies use Known occupational exposures/hazards: No Highest level of school completed/degree received: some college, no degree Do you want help with school or training: No Little interest or pleasure in doing things: not at all Feeling down, depressed, or hopeless: not at all Gender Identity: male Meds Home Medications and Allergies Home Medications ?Medication ?Instructions ?Recorded ?Confirmed ?Type acetaminophen 500 mg capsule 1,000 mg PO Q6H PRN fever or pain 02/26/24 05/07/24 History allopurinol 300 mg tablet 300 mg PO DAILY 02/26/24 05/07/24 History amlodipine 10 mg tablet 10 mg PO DAILY 02/26/24 05/07/24 History apixaban 5 mg tablet (Eliquis) 5 mg PO Q12H 02/26/24 05/07/24 History aspirin 81 mg tablet,delayed 81 mg PO .weekly 02/26/24 05/07/24 History release (Adult Aspirin Regimen) calcium 315 mg (as 1 tab PO DAILY 02/26/24 05/07/24 History citrate)-vitamin D3 5 mcg (200 unit) tablet (Calcium Citrate + D) carvedilol 6.25 mg tablet 6.25 mg PO Q12H 02/26/24 05/07/24 History cyanocobalamin (vitamin B-12) 1,000 mcg PO DAILY 02/26/24 05/07/24 History 1,000 mcg tablet (Vitamin B-12) furosemide 20 mg tablet 20 mg PO Q12H 02/26/24 05/07/24 History glipizide 10 mg tablet 10 mg PO BID 02/26/24 05/07/24 History hydralazine 50 mg tablet 100 mg PO Q8H 02/26/24 05/07/24 History insulin glargine 100 unit/mL (3 24 unit subcut BID 02/26/24 05/07/24 History mL) subcutaneous pen multivitamin (Daily Multi-Vitamin 1 tab PO DAILY 02/26/24 05/07/24 History tablet) omeprazole 20 mg capsule,delayed 20 mg PO DAILY 02/26/24 05/07/24 History release semaglutide 1 mg/dose (4 mg/3 mL) 1 mg subcut QWEEK 02/26/24 05/07/24 History subcutaneous pen injector (Ozempic) simvastatin 20 mg tablet 20 mg PO DAILY 02/26/24 05/07/24 History spironolactone 25 mg tablet 25 mg PO DAILY 02/26/24 05/07/24 History terazosin 10 mg capsule 10 mg PO BEDTIME 02/26/24 05/07/24 History fluconazole 200 mg tablet 400 mg PO Q24H 04/16/24 05/07/24 History finasteride 5 mg tablet 5 mg PO DAILY 05/03/24 05/07/24 History albuterol sulfate 2.5 mg/3 mL 2.5 mg (3 mL) inhalation Q4H PRN 05/06/24 05/07/24 Rx (0.083 %) solution for nebulization bronchospasm #90 mL levofloxacin 750 mg tablet 750 mg PO DAILY 10 days #10 tabs 05/06/24 05/07/24 Rx prednisone 10 mg tablet 30 mg (3 x 10 mg) PO DAILY #20 tabs 05/06/24 05/07/24 Rx Allergies Allergy/AdvReac Type Severity Reaction Status Date / Time fosinopril (From Monopril) Allergy Severe shortness Verified 05/07/24 17:03 of breath metoprolol Allergy Severe shortness Verified 05/07/24 17:03 of breath strawberry Allergy Severe Rash Verified 05/07/24 17:03 Exam Constitutional Vital Signs, click to edit/add: Last Vital Signs Temp 97.7 F 05/09/24 12:00 Pulse 82 05/09/24 13:00 Resp 20 05/09/24 12:00 BP 127/72 05/09/24 12:00 Pulse Ox 92 L 05/09/24 13:00 O2 Del Method Nasal Cannula 05/09/24 13:00 O2 Flow Rate 4 05/09/24 13:00 FiO2 40 05/09/24 12:00 Common normals: no apparent distress Other: Sitting up in chair, does not appear to be in any distress HENMT Other: Wearing nasal cannula Chest Common normals: inspection of chest normal Respiratory Other: Diminished breath sounds. Exam fairly unchanged from 05/04/2024 - diffuse mild crackles, less in MAIN field posteriorly. No wheezes. Cardio Other: RRR Other: Gomez Extremity Other: Wearing compression stockings. BLE edema better than last exam. Neuro Other: No fasciculations Psych Other: Calm, appropriate demeanor Results Laboratory Findings ABG, PT/INR, D-dimer: PT/INR, D-dimer PT 11.8 sec (9.0-11.6) H 05/07/24 17:05 INR 1.13 05/07/24 17:05 Abnormal lab findings: Abnormal Labs 05/07/24 05/07/24 05/08/24 17:05 19:39 04:52 WBC 12.9 H RBC 2.95 L 2.86 L Hgb 9.6 L 9.0 L Hct 28.0 L 27.2 L MCV 94.9 H 95.1 H RDW 15.9 H 15.9 H Plt Count 139 L 123 L MPV 8.4 L 9.3 L Neut % (Auto) 95.3 H Lymph % (Auto) 2.5 L Eos % (Auto) 0.0 L Baso % (Auto) 0.0 L Neut # (Auto) Lymph # (Auto) 0.2 L [place] # (Auto) 0.1 L Abs Immat Gran (auto) Seg Neuts % (Manual) 93.0 H Lymphocytes % (Manual) 0.0 L Eosinophils % (Manual) 0.0 L Basophils % (Manual) 0.0 L Neutrophils # (Manual) 11.99 H Lymphocytes # (Manual) 0.00 L Monocytes # (Manual) 0.90 H PT 11.8 H VBG pH 7.448 H VBG pCO2 30.1 L Sodium 134 L BUN 83.0 H* 77.0 H* Creatinine 2.53 H 2.42 H Est GFR ( Amer) 30 L 32 L Est GFR (Non-Af Amer) 25 L 26 L Glucose 110 H AST 12 L NT-Pro-B Natriuret Pep >84199.0 H* >38626.0 H* Total Protein 5.6 L 5.4 L Albumin 2.6 L 2.5 L POC Glucose 61 L 05/08/24 05/09/24 11:40 05:04 WBC RBC 2.79 L Hgb 8.7 L Hct 26.6 L MCV 95.3 H RDW 15.8 H Plt Count 118 L MPV 9.2 L Neut % (Auto) 90.0 H Lymph % (Auto) 4.4 L Eos % (Auto) 0.1 L Baso % (Auto) 0.1 L Neut # (Auto) 8.1 H Lymph # (Auto) 0.4 L [place] # (Auto) Abs Immat Gran (auto) 0.04 H Seg Neuts % (Manual) Lymphocytes % (Manual) Eosinophils % (Manual) Basophils % (Manual) Neutrophils # (Manual) Lymphocytes # (Manual) Monocytes # (Manual) PT VBG pH VBG pCO2 Sodium BUN 85.0 H* Creatinine 2.45 H Est GFR ( Amer) 31 L Est GFR (Non-Af Amer) 26 L Glucose 275 H AST NT-Pro-B Natriuret Pep Total Protein Albumin POC Glucose 251 H Assessment and Plan Assessment and Plan (1) Congestive heart failure: Assessment and Plan: 1. Acute on chronic combined systolic and diastolic CHF. Now has reduced EF 15-20%. 2. Pneumonia, unspecified. I have a difficult time accepting that this patient continues to have repeated HCAP. With his worsening cardiac function, the abnormalities on the CXR may represent pulmonary edema. Additionally, he is afebrile without leukocytosis. He has been on a plethora of antibiotics over the past 10 weeks, initially for UTI, then pneumonia -05/07/2024: Pneumonia, AECOPD, AECHF ? Zosyn + Zyvox -05/02/2024: Pneumonia, AECOPD, AECHF ? Zosyn + Zyvox -04/15/2024: Pneumonia, AECOPD, AECHF ? Cefdinir, clindamycin -04/08/2024: Pneumonia, AECOPD, AECHF ? Levofloxacin -04/05/2024: Pneumonia, AECOPD, AECHF ? Levofloxacin -03/28/2024: UTI ? Cefdinir -03/11/2025: UTI ? Augmentin -02/25/2025: UTI ? Ciprofloxacin The CXR was worse on 05/07/2024, but he is on the same antibiotics as prior to discharge. If this were pneumonia, I would expect him to be getting worse, not better. May consider stopping antibiotics for now and following him. He is at risk of developing C. diff. 3. COPD. Does not appear to be in any respiratory distress at this time. 4. Chronic hypoxic respiratory failure supplemental O2. 5. VIRGILIO. Continue using home PAP unit. 6. History of tobacco abuse. 7. Obesity. Qualifiers: Heart failure type: combined systolic and diastolic Heart failure chronicity: acute on chronic Qualified Code(s): I50.43 - Acute on chronic combined systolic (congestive) and diastolic (congestive) heart failure Plan Patient is [place] [facility] Nothing further to add at this point from a pulmonary perspective.
== END 2024-05-09 18:42 | disposition short-term general hospital (02) | DRG 291 ==
LOC: ER 18:09 → ICU 19:00
PROVIDERS: Physician Assistant; Registered Nurse; Admitting Provider Family Medicine; Emergency Provider Emergency Medicine; PCP Family Medicine; Visit Provider Family Medicine
DX: I13.0 Hypertensive heart and chronic kidney disease with heart failure and stage 1 through stage 4 chronic kidney disease, or unspecified chronic kidney disease (principal); I50.43 Acute on chronic combined systolic (congestive) and diastolic (congestive) heart failure; J18.9 Pneumonia, unspecified organism; N17.9 Acute kidney failure, unspecified; E44.0 Moderate protein-calorie malnutrition; R09.02 Hypoxemia; Z87.440 Personal history of urinary (tract) infections; M19.90 Unspecified osteoarthritis, unspecified site; Z79.01 Long term (current) use of anticoagulants; R06.03 Acute respiratory distress; I48.0 Paroxysmal atrial fibrillation; E11.22 Type 2 diabetes mellitus with diabetic chronic kidney disease; N18.32 Chronic kidney disease, stage 3b; Z95.0 Presence of cardiac pacemaker; I25.10 Atherosclerotic heart disease of native coronary artery without angina pectoris; D69.6 Thrombocytopenia, unspecified; Y95 Nosocomial condition; N40.0 Benign prostatic hyperplasia without lower urinary tract symptoms; K21.9 Gastro-esophageal reflux disease without esophagitis; E78.00 Pure hypercholesterolemia, unspecified; I25.2 Old myocardial infarction; Z85.828 Personal history of other malignant neoplasm of skin; Z87.891 Personal history of nicotine dependence; Z79.82 Long term (current) use of aspirin; Z79.84 Long term (current) use of oral hypoglycemic drugs; Z79.4 Long term (current) use of insulin; Z79.85 Long-term (current) use of injectable non-insulin antidiabetic drugs; Z99.81 Dependence on supplemental oxygen; Z68.30 Body mass index [BMI] 30.0-30.9, adult; Z87.01 Personal history of pneumonia (recurrent); G47.33 Obstructive sleep apnea (adult) (pediatric); E66.9 Obesity, unspecified
CPT/HCPCS: 36415; 71045; 80048; 80053; 82800; 82948; 83605; 83735; 83880; 84443; 84484; 85007; 85025; 85027; 85610; 86140; 87040; 87420; 87804; 87811; 93005; 93308; 94640; 94660; 94667; 94668; 94761; 96365; 96367; 96375; 97110; 97161; 97165; 97530; 97535; 99285; J2020; J2543; J2919; J3370; J7512

== ENCOUNTER 2024-05-18 22:08 | Inpatient (IN) | payer MEDICARE, OTHER, SELFPAY ==
[2024-05-18] VITALS (17 sets, daily range): BP systolic 131; BP diastolic 65; PULSE 90–105; TEMP 38.4; O2SAT 92–94
--- NOTE | 2024-05-18 22:07 | ECG_ITS ---
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
--- OUTSIDE RECORDS SUMMARY | 2024-05-18 22:12 | XMS_ITS | CCD ---
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 Varghese Lord Attending Unavailable Afua II, Dr. Varghese Lord Referring Unavailable DeGrozulay, Dr. Andrea De La Rosa Primary Care Unava ilable Bernarda, Dr. Andrea De La Rosa Primary Care Unava ilable Bernarda, Dr. Andrea De La Rosa Primary Care Unava ilable Afua II, Dr. Varghese Lord Attending Unavailable Afua MARCIAL, Dr. Varghese Lord Referring Unavailable DeGrozulay, Dr. Andrea De La Rosa Primary Care Unava ilable Andrea Espinoza DO Primary Care Provider Andrea Espinoza DO Primary Care Provider Lori Medina MD Primary Care Provider [phone] BLANCA ALONSO Attending Unavailable BLANCA ALONSO Attending Unavailable DANK JONES Attending Unavailable BLANCA ALONSO Attending Unavailable BLANCA ALONSO Attending Unavailable BOBO BRENNER Attending Unavailable LORI MEDINA Primary Care Unavailable LORI MEDINA Primary Care Unavailable BEATA DEGROOT Attending Unavailable Andrea Espinoza DO Primary Care Provider [phone] MCGUINN, VARGHESE P Attending Unavailable MCGUINN, VARGHESE P Referring Unavailable ANDREA ESPINOZA Primary Care Unavailable OSVALDO DICKINSON Attending Unavailable MCGUINN, VARGHESE P Referring Unavailable ANDREA ESPINOZA Primary Care Unavailable Benton Vasquez DO Attending Provider Unavailab le LueMica Attending Unavailable Lue, Mica M. Referring Unavailable Lue, Mica M. Attending Unavailable Lue, Mica M. Referring Unavailable Anna Sr Attending Unavailable Lue, Mica M. Attending Unavailable NATA TA Attending Unavailable Lue, Mica MAnisa Referring Unavailable Lue, Mica M. Admitting Unavailable Lue, Mica M. Attending Unavailable Lue, Mica M. Referring Unavailable Lue, Mica M. Admitting Unavailable Lue, Mica M. Attending Unavailable McGuinn, Varghese P Admitting Unavailable McGuinn, Varghese P Attending Unavailable McGuinn, Varghese P Referring Unavailable Lue, Mica M. Admitting Unavailable Lue, Mica M. Attending Unavailable Lue, Mica M. Attending Unavailable Barb Loza Admitting UnavailBarb Lang Attending Unavailabl Vini Morrison Attending Unavailable NAPOLEON TA Attending Unavailab le Lue, Mica Johns Attending Unavailable Lori Medina MD Primary Care Provider Alexa Corona MD Admit Provider [phone] Alexa Corona MD Attending Provider [phone] Deep GODINEZ, Gabriela Other Provider Unavailable Shirley Harvey DO Other Provider Rupert Rey MD Other Provider [phone] Varghese Caal MD Other Provider Osvaldo Dickinson MD Other Provider Ben Calderon MD Other Provider Allie Ramírez APRN Other Provider Evelyn Zhang MD Other Provider Mauri SANDHU, Lorenzo Foreman Other Provider Rajat Foster MD Other Provider [facility] Other Provider [phone] Benton Vasquez Admitting Unavailable Benton Vasquez Attending Unavailable Benton Vasquez Admitting Unavailable Benton Vasquez Attending Unavailable Gabriela Adame Consulting Unavailable Lori Medina Primary Care Unavailable Chloe Alexa Admitting Unavailable Alexa Corona Attending Unavailable Shirley Harvey Consulting Unavailable Rupert Rey Consulting Unavailable Varghese Caal Consulting Unavail able Osvaldo Dickinson Consulting Unavailable Ben Calderon Consulting Unavailab Allie Rico Consulting Unavailable Evelyn Zhang Consulting Unavailable Lorenzo Dotson Consulting Unavailab Rajat Hook Consulting Unavailable Sanaz Stewart Consulting Unavailable Deepti Powell Attending Unavailable Mica Car Attending Unavailable Mica Car Attending Unavailable Mica Car Attending Unavailable Mica Car Attending Unavailable Mica Car Attending Unavailable Allergies Allergy Classification Reported Allergen(s) Allergy Type Date of Onset Reaction(s) Facility (9 sources) Enalapril; 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: [enalapril] Drug Allergy 02-10-20 23 [facility] (19 sources) Metoprolol; 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: [metoprolol] Drug Allergy 10-12-19 23 Cough, Unknown -[facility] [facility] DO Work Phone: (4 sources) Fosinopril; 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: [Monopril] Drug Allergy 03-16-20 14 [facility] (1 source) Metoprolol Drug Allergy 05-16-19 15 [facility] (2 sources) strawberry allergenic extract Drug Allergy 05-16-19 15 Rash [facility] (1 source) tomato allergenic extract Drug Allergy 05-16-19 15 [facility] (7 sources) Fosinopril; 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: [FOSINOPRIL] Drug Allergy 10-12-19 23 Unknown [facility] Work Phone: (3 sources) hydroCHLOROthiazide / Metoprolol; 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: [hydrochlorothiazide-m etoprolol] Drug Allergy [facility] Repository (3 sources) [place]; 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: [Strawberries] Food allergy (disorder) [facility] Repository (3 sources) Tomatoes; 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: [Tomatoes] Food allergy (disorder) [facility] Repository (1 source) Fosinopril Drug Allergy 05-09-19 [facility] Repository (1 source) Metoprolol Drug Allergy 05-09-19 [facility] Repository (1 source) strawberry allergenic extract Drug Allergy 05-09-19 [facility] Repository Medications Current Medications Medication Drug Class(es) Dates Sig (Normalized) Sig (Original) acetaminophen 500 mg oral capsule (14 sources) Start: 05-09-2024 take 2 capsules by mouth every six hours as needed for pain Acetaminophen 500 mg capsule Active 1000 MG PO Every 6 hours as needed for fever or pain May 09, 2024 12:00am take [address] [facility] every six hours as needed acetaminophen (TylenoL) 325 mg capsule T evelyn 1 capsule (325 mg) by mouth every 6 hours if needed. Active acetaminophen (T ylenol 8 Hour) 650 MG ER tablet Tylenol Active albuterol 0.83 mg/ml inhalation solution (1 source) beta2-Adrenergic Agonist Start: 05-09-2024 take 2.5 mg by inhalation every four hours as needed for wheezing Albuterol Sulfate 2.5 mg /3 mL (0.083 %) solution for nebulization Active 2.5 MG INHALATION Every 4 hours as needed for shortness of breath or wheezing May 09, 2024 12:00am allopurinol 300 mg oral tablet (14 sources) Xanthine Oxidase Inhibitor Start: 05-09-2024 take 1 tablet by mouth once daily Allopurinol 300 mg tablet Active 300 MG PO Daily May 09, 2024 12:00am Start: 01-14-2021 take 1 tablet by jai once daily allopurinol (Zyloprim) 300 mg tablet Take 1 tablet (300 mg) by mouth once daily. 01/14/2021 Active apixaban 5 mg oral tablet (12 sources) Factor Xa Inhibitor Start: 05-09-2024 take 1 tablet by mouth every twelve hours Apixaban (Eliquis) 5 mg tablet Active 5 MG PO Every 12 hours May 09, 2024 12:00am Start: 12-16-2021 take 1 tablet by jai th twice daily apixaban (Eliquis) 5 mg tablet Take 1 tablet (5 mg) by mouth 2 times a day. 12/16/2021 Active apixaban (Eliqui s) 5 MG tablet every 12 (twelve) hours. Active aspirin 81 mg oral tablet (14 sources) Platelet Aggregation Inhibitor, Nonsteroidal Anti-inflammatory Drug Start: 05-09-2024 take 1 capsule by mouth every week Aspirin 81 mg capsule Active 81 MG PO .weekly May 09, 2024 12:00am Wednesday Start: 12-16-2021 take 1 tablet by jai th every week aspirin 81 mg EC tablet Take 1 tablet (81 mg) by mouth 1 (one) time per week. 12/16/2021 Active take 1 tablet by jai th once daily Aspirin 325 MG Oral Tablet Delayed Release Take 1 tablet daily Quantity: 0 Refills: 0 Ordered: 22-Jan-2021 DO Active bumetanide 0.5 mg oral tablet (1 source) Loop Diuretic Start: 05-13-2024 take 1 tablet by mouth once daily Bumetanide 0.5 mg Tablet Active 1.5 MG PO DAILY@0800 0 May 13, 2024 12:00am CALCIUM CARBONATE-VITAMIN D3 ORAL (3 sources) take 1 tablet by mouth once daily CALCIUM CARBONATE-VITAMIN D3 ORAL Take 1 tablet by mouth once daily. Active take 1 tablet by mouth once jose y CALCIUM CARBONATE-VITAMIN D3 ORAL Take 1 tablet by mouth once daily. 0 Active calcium citrate 1500 mg / cholecalciferol 200 unt oral tablet (1 source) Vitamin D Start: 05-09-2024 take 1 tablet by mouth once daily Calcium Citrate-Vitamin D3 315 mg-5 mcg (200 unit) tablet Active 1 TAB PO Daily May 09, 2024 12:00am carvedilol 6.25 mg oral tablet (14 sources) alpha-Adrener gic Howie, beta-Adrenerg ic Howie Start: 05-09-2024 take 1 tablet by mouth twice daily at mealtime Carvedilol (Coreg) 6.25 mg tablet Active 6.25 MG PO Twice daily May 09, 2024 12:00am must administer with a meal/food Start: 12-17-2020 take 1 tablet by jai th twice daily carvedilol (Coreg) 6.25 mg tablet [...] MG tablet every 12 (twelve) hours. Active finasteride 5 mg oral tablet (1 source) 5-alpha Reductase Inhibitor Start: 05-09-2024 take 1 tablet by mouth once daily Finasteride 5 mg tablet Active 5 MG PO Daily May 09, 2024 12:00am hydrALAZINE hydrochloride 50 mg oral tablet (15 sources) Arteriolar Vasodilator Start: 05-12-2024 take 1 tablet by mouth twice daily Hydralazine 50 mg Tablet Active 50 MG PO Twice daily 60 30 May 12, 2024 12:00am Start: 05-09-2024 End: 05-13-2024 take 1 tablet by mouth three times daily Hydralazine 50 mg tablet Discontinued 50 MG PO Three times daily May 09, 2024 12:00am May 13, 2024 2:06pm Start: 03-20-2020 take 1 tablet by jai th three times daily hydrALAZINE (Apresoline) 50 mg [...] MG tablet every 8 (eight) hours. Active Insulin Aspart U-100 100 unit/mL (3 mL) Insulin Pen (1 source) Start: 05-13-2024 Insulin Aspart U-100 100 unit/mL (3 mL) Insulin Pen Active 0 UNIT SUBCUT 3X/Day with meals and bedtime 0 May 13, 2024 12:00am Please contact the information source for Protocol details. 3 ml insulin glargine 100 unt/ml pen injector (9 sources) Insulin Analog Start: 05-13-2024 Insulin Glargi ne (Lantus Solostar U-100 Insulin) 100 unit/mL (3 mL) Insulin Pen Active 18 UNIT SUBCUT Daily 0 May 13, 2024 12:00am Start: 05-13-2024 inject 8 [IU] by sub cutaneous injection once daily at bedtime Insulin Glargine (Lantus Solostar U-100 Insulin) 100 unit/mL (3 mL) Insulin Pen Active 8 UNIT SUBCUT Daily at bedtime 0 May 13, 2024 12:00am Start: 05-09-2024 End: 05-13-2024 inject 24 [IU] by subcutaneous injection twice daily Insulin Glargine 100 unit/mL (3 mL) insulin pen Discontinued 24 UNIT SUBCUT Twice daily May 09, 2024 12:00am May 13, 2024 2:06pm Start: 10-22-2021 insulin glargi ne (Lantus U-100 Insulin) 100 unit/mL injection Inject under the skin. 10/22/2021 Active INSULIN GLARGINE, 1 UNIT DIAL, SC (5 sources) INSULIN GLARGINE , 1 UNIT DIAL, SC Insulin Glargine Active 24 hr isosorbide mononitrate 30 mg extended release oral tablet (1 source) Nitrate Vasodilator Start: 5 take 1 tablet by mouth once daily in the morning, then take 1 tablet by mouth every twenty-four hours Isosorbide Mononitrate 30 mg Tablet Extended Release 24 Hr Active 30 MG PO Every morning 30 May 12, 2024 12:00am mecobalamin 1 mg chewable tablet (1 source) Start: 5 take 1 tablet by mouth once daily Mecobalamin (Vitamin B12) 1,000 mcg tablet,chewable Active 1000 MCG PO Daily May 09, 2024 12:00am Multiple Minerals-Vitamins (CALCIUM CITRATE PLUS PO) (5 sources) Multiple Minerals-Vitamins (CALCIUM CITRATE PLUS PO) Calcium Citrate Plus Active Multiple Vitamins-Minerals (MULTIVITAMIN ADULT, MINERALS, PO) (5 sources) Multiple Vitamins-Minerals (MULTIVITAMIN ADULT, MINERALS, PO) Multivitamin Adult Active Multivitamin (Daily Multi-Vitamin) tablet (1 source) Start: 5 take 1 tablet by mouth once daily Multivitamin (Daily Multi-Vitamin) tablet Active 1 TAB PO Daily May 09, 2024 12:00am multivitamin tablet (3 sources) take 1 tablet by mouth once daily multivitamin tablet Take 1 tablet by mouth once daily. Active take 1 tablet by mouth once jose y multivitamin tablet Take 1 tablet by mouth once daily. 0 Active nystatin 100 unt/mg topical powder (5 sources) Polyene Antifungal Start: 08-10-2023 nystatin (Mycostatin) 554423 UNIT/GM powder Indications: Erythema intertrigo Apply to the affected area, twice daily when flared or for maintenance, 30 day supply 60 g 11 08/10/2023 Active omeprazole 20 mg delayed release oral capsule (14 sources) Proton Pump Inhibitor Start: 05-09-2024 take 1 capsule by mouth once daily Omeprazole 20 mg capsule,delayed release(DR/EC) Active 20 MG PO Daily May 09, 2024 12:00am Start: 01-14-2021 take [address] [facility] once daily before mealtime omeprazole (PriLOSEC) [address] capsule Take 1 capsule (20 mg) by mouth once daily in the morning. Take before meals. 01/14/2021 Active omeprazole OTC ( PriLOSEC OTC) 20 MG EC tablet 1 capsule 1 (one) time each day at the same time. Active potassium chloride 10 meq extended release oral tablet (1 source) Start: 05-13-2024 take 1 tablet by jai th once daily Potassium Chloride 10 mEq tablet extended release Active 10 MEQ PO Daily May 13, 2024 12:00am ruxolitinib (2 sources) Start: 01-17-2024 Ruxolitinib Ph [...] 0 Refills: 0 Ordered: 22-Jan-2021 DO Active Semaglutide (1 source) Start: 05-09-2024 inject 1 mg by subcutaneous injection every week Semaglutide (Ozempic) 1 mg/dose (4 mg/3 mL) pen injector Active 1 MG SUBCUT every week May 09, 2024 12:00am sildenafil 100 mg oral tablet (2 sources) Phosphodiesterase 5 Inhibitor Start: 06-16-2023 take 1 tablet by mouth every hour sildenafil (Viagra) 100 mg tablet take 1 tablet by mouth 1 hour prior to intercourse if needed 06/16/2023 Active simvastatin 20 mg oral tablet (14 sources) HMG-CoA Reductase Inhibitor Start: 05-09-2024 take 1 tablet by mouth once daily Simvastatin 20 mg tablet Active 20 MG PO Daily May 09, 2024 12:00am Start: 01-14-2021 take 0.5 tablet by m outh once daily at bedtime simvastatin (Zocor) 20 mg tablet Take 0.5 tablets (10 mg) by mouth once daily at bedtime. 01/14/2021 Active simvastatin (Zoc or) 20 MG tablet 1 (one) time each day at the same time. Active spironolactone 25 mg oral tablet (15 sources) Aldosterone Antagonist Start: 05-13-2024 Spironolactone 25 mg tablet Active 12.5 MG PO Daily May 13, 2024 2:05pm Start: 05-09-2024 End: 05-13-2024 take 1 tablet by mouth once daily Spironolactone 25 mg tablet Discontinued 25 MG PO Daily May 09, 2024 12:00am May 13, 2024 2:06pm Start: 01-14-2021 take 1 tablet by jai once daily spironolactone (Aldactone) 25 mg tablet Take 1 tablet (25 mg) by mouth once daily. 01/14/2021 Active Start: 01-14-2021 take [address] [facility] once daily Spironolactone 25 MG [...] 05/07/2023 Active terazosin 10 mg oral capsule (14 sources) alpha-Adrenergic Howie Start: 05-09-2024 take 1 capsule by mouth at bedtime Terazosin 10 mg capsule Active 10 MG PO Bedtime May 09, 2024 12:00am Start: 04-23-2020 take 1 capsule by mo uth once daily terazosin (Hytrin) 10 mg capsule Take 1 capsule (10 mg) by mouth once daily. 04/23/2020 Active triamcinolone acetonide 1 mg/ml topical lotion (3 sources) Corticosteroid triamcinolone (K enalog) 0.1 % lotion Apply topically 3 times [...] Drug Class(es) Dates Sig (Normalized) Sig (Original) amLODIPine 10 mg oral tablet (14 sources) Dihydropyridine Calcium Channel Howie Start: 05-09-2024 End: 05-13-2024 take 1 tablet by mouth once daily Amlodipine 10 mg tablet Discontinued 10 MG PO Daily May 09, 2024 12:00am May 13, 2024 2:06pm Start: 01-14-2021 take 1 tablet by jai th once daily amLODIPine (Norvasc) 10 mg tablet Take 1 tablet (10 mg) by mouth once daily. 01/14/2021 Active Calcium (5 sources) Phosphate Binder, Calcium Calcium 600 + D TABS TAKE 1 TABLET DAILY. Quantity: 0 Refills: 0 Ordered: 22-Jan-2021 DO Active clopidogrel 75 mg oral tablet (7 sources) P2Y12 Platelet Inhibitor Start: 0 take 1 tablet by mouth once daily Clopidogrel Bisulfate 75 MG Oral Tablet Take 1 tablet daily Quantity: 90 Refills: 3 Ordered: 20-Mar-2020 DO Start : 20-Mar-2020 Active fluconazole 200 mg oral tablet (1 source) Azole Antifungal Start: 5 End: 5 take 2 tablets by mouth once daily Fluconazole 200 mg tablet Discontinued 400 MG PO Daily May 09, 2024 12:00am May 13, 2024 2:06pm furosemide 20 mg oral tablet (14 sources) Loop Diuretic Start: 5 End: 5 take 1 tablet by mouth twice daily Furosemide 20 mg tablet Discontinued 20 MG PO Twice daily May 09, 2024 12:00am May 13, 2024 2:06pm Start: 01-14-2021 take 1 tablet by jai th twice daily furosemide (Lasix) 20 mg tablet Take 1 tablet (20 mg) by mouth 2 times a day. 01/14/2021 Active furosemide (Lasi x) 20 MG tablet every 12 (twelve) hours. Active glipiZIDE 10 mg oral tablet (4 sources) Sulfonylurea Start: 05-09-2024 End: 05-13-2024 take 1 tablet by mouth twice daily Glipizide 10 mg tablet Discontinued 10 MG PO Twice daily May 09, 2024 12:00am May 13, 2024 2:06pm take 1 tablet by mouth at dinner glipiZIDE (Glucotrol) 5 mg tablet Take 1 tablet (5 mg) by mouth. 5 mg at breakfast 10 mg at dinner Active 3 ml insulin aspart, human 100 unt/ml pen injector (2 sources) Insulin Analog Start: 12-16-2020 NovoLOG FlexPen 100 UNIT/ML Subcutaneous Solution Pen-injector Quantity: 5 Refills: 0 Ordered: 16-Dec-2020 DO Start : 16-Dec-2020 Active levoFLOXacin 750 mg oral tablet (1 source) Quinolone Antimicrobial Start: 05-09-2024 End: 05-13-2024 take 1 tablet by mouth once daily Levofloxacin 750 mg tablet Discontinued 750 MG PO Daily May 09, 2024 12:00am May 13, 2024 2:06pm Multi Vitamin Oral Tablet (5 sources) take 1 tablet by mouth once daily Multi Vitamin Oral Tablet TAKE 1 TABLET DAILY. Quantity: 0 Refills: 0 Ordered: 22-Jan-2021 DO Active predniSONE 10 mg oral tablet (1 source) Start: 05-09-2024 End: 05-13-2024 take 3 tablets by mouth once daily Prednisone 10 mg tablet Discontinued 30 MG PO Daily May 09, 2024 12:00am May 13, 2024 2:06pm 20 tab fill Problems Active Problems Problem Classification Problem Date Documented Date Episodic/Chronic Acute and unspecified renal failure (1 source) Acute kidney failure, unspecified; 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: [Acute kidney failure, unspecified] Onset: 05-09-2024 Episodic Allergic reactions (4 sources) Atopic dermatitis; 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: [Other atopic dermatitis] 01-17-2024 Chronic Cardiac dysrhythmias (20 sources) Sick sinus syndrome; 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: [Sinoatrial node dysfunction] Onset: 02-09-2023 02-10-2023 Chronic Chronic kidney disease (14 sources) Chronic kidney disease stage 4; 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: [...] block] Onset: 02-09-2023 Resolved: 03-01-2024 02-10-2023 Chronic Congestive heart failure; nonhypertensive (3 sources) Congestive heart failure; 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: [Heart failure, unspecified] Onset: 05-09-2024 05-09-2024 Chronic Coronary atherosclerosis and other heart disease (2 sources) Atherosclerotic heart disease of [place] coronary artery without angina pectoris; 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: [Old [...] 06-01-2022 10-11-2022 Chronic Other aftercare (1 source) 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 This puts you at a higher risk for infection, illness, falls, and other injuries. Here are four ways to help you reduce your risk of frailty: 1. IDENTIFY EARLY SIGNS OF FRAILTY Discuss contributing factors and concerns with your doctor 2. BE ACTIVE Walking and light strengthening exercises will help reduce weakness 3. EAT WELL Aim for three healthy meals a day that are high in protein 4. THINK POSITIVE Keep your mind active by being sociable and continuing to learn References: Stay Strong: Four Ways to Beat the Frailty Risk [email or web address] muc-skg-alisdalhjz/sta t-xtzaor-skfk-ways-to- wlbl-yvp-vzr ilty-risk 05-13-2024 Urinary tract infections (1 source) Acute cystitis with hematuria; 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: [Acute cystitis with hematuria] Onset: 01-24-2024 Episodic Past or Other Problems Problem Classification Problem Date Documented Da te Episodic/Chronic Syncope (8 sources) Syncope; 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: [Syncope and collapse] Onset: 02-09-2023 02-09-2023 Episodic Unclassified (3 sources) Onset: 02-10-2023 Resolved: 03-01-2024 02-10-2023 Results Test Name Value Interpretation Reference Range Facil ity Basic Metabolic Panelon 04-23 Anion gap [Moles/Vol] 9.6 mmol/L Normal 6.0-15.0 [facility] Comment on above: Performed By: #### B MP, CBC #### [place] [address] [place] Calcium [Mass/Vol] 8.5 mg/dL Low 8.6-10.3 [facility] Comment on above: Performed By: #### B MP, CBC #### [place] [address] [place] Chloride [Moles/Vol] 103 mmol/L Normal 98-107 [facility] Comment on above: Performed By: #### B MP, CBC #### [facility] [address] [id number] [place] CO2 [Moles/Vol] 33.9 mmol/L High 21.0-31.0 [facility] Comment on above: Performed By: #### B MP, CBC #### [facility] [address] [place] [address] [place] Creatinine [Mass/Vol] 1.51 mg/dL High 0.70-1.30 [facility] Comment on above: Performed By: #### B MP, CBC #### [address] Creatinine Clr Calc Pharmacy 41.63 Normal [facility] Comment on above: Result Comment: PERF ORMED BY: [place] [address] PATHOLOGIST BANKING SERVICES OFFICER OSCAR ESCOBAR M.D. Performed By: #### B MP, CBC #### [address] Estimated GFR 46.982 mL/Min Normal [facility] Comment on above: Performed By: #### B MP, CBC #### [address] Glucose [Mass/Vol] 139 mg/dL High 70-100 [facility] Comment on above: Result Comment: [place] Glucose Reference Range is dependent on time and content of last meal. Glucose of more than 200 mg/dL in a nonstressed, ambulatory subject supports the diagnosis of Diabetes Mellitus. ADA recommended reference range Performed By: #### B MP, CBC #### [address] Potassium [Moles/Vol] 3.5 mmol/L Normal 3.5-5.1 [facility] Comment on above: Performed By: #### B MP, CBC #### [address] Sodium [Moles/Vol] 143 mmol/L Normal 136-145 [facility] Comment on above: Performed By: #### B MP, CBC #### [address] Urea nitrogen [Mass/Vol] 62 mg/dL High 7-25 [facility] Comment on above: Performed By: #### B MP, CBC #### [place] [address] [place] Basophils Auto (Bld) [#/Vol] Ordered By: Alexa Corona on 05-13-2024 Basophils (Bld) [#/Vol] Automated basophil count 0.0-0.2 [facility] Basophils/100 WBC Auto (Bld) Ordered By: Alexa Corona on 05-13-2024 Basophils/100 WBC (Bld) Automated basophil % . [facility] Calcium [Mass/volume] in Ser um or PlasmaOrdered By: Alexa Corona on 05-13-2024 Calcium [Mass/Vol] Calcium [Mass/volume] in Serum or Plasma Low 8.6-10.3 [facility] Carbon dioxide, total [Moles /volume] in Serum or PlasmaOrdered By: Alexa Corona on 05-13-2024 CO2 [Moles/Vol] Carbon dioxide, total [Moles/volume] in Serum or Plasma High 21.0-31.0 [facility] Chloride [Moles/volume] in S chelo or PlasmaOrdered By: Alexa Corona on 05-13-2024 Chloride [Moles/Vol] Chloride [Moles/volume] in Serum or Plasma 98-107 [facility] Complete Blood Count Auto Di ffon 05-13-2024 Basophils (Bld) [#/Vol] 0.0 10*3/uL Normal 0.0-0.2 [facility] Comment on above: Result Comment: PERF ORMED BY: [place] [address] PATHOLOGIST BANKING SERVICES OFFICER OSCAR ESCOBAR M.D. Performed By: #### B MP, CBC #### [facility] [address] [place] [address] [place] Basophils/100 WBC (Bld) 0.3 % Normal . [facility] [facility] Comment on above: Performed By: #### B MP, CBC #### [facility] [address] [place] [address] [place] Eosinophils (Bld) [#/Vol] 0.3 10*3/uL Normal 0.0-0.45 [facility] Comment on above: Performed By: #### B MP, CBC #### [place] [address] [place] Eosinophils/100 WBC (Bld) 5.3 % Normal . [facility] Comment on above: Performed By: #### B MP, CBC #### [address] Erythrocyte distribution width (RBC) [Ratio] 16.3 % High 12.0-14.8 [facility] Comment on above: Performed By: #### B MP, CBC #### [address] Hematocrit (Bld) [Volume fraction] 26.2 % Low 38.8-50.0 [facility] Comment on above: Performed By: #### B MP, CBC #### [address] Hemoglobin (Bld) [Mass/Vol] 9.1 g/dL Low 13.0-17.0 [facility] Comment on above: Performed By: #### B MP, CBC #### [address] Lymphocytes (Bld) [#/Vol] 1.1 10*3/uL Normal 1.00-4.8 [facility] Comment on above: Performed By: #### B MP, CBC #### [address] Lymphocytes/100 WBC (Bld) 17.8 % Normal . [facility] Comment on above: Performed By: #### B MP, CBC #### [address] MCH (RBC) [Entitic mass] 32.8 pg Normal 27.5-35.2 [facility] Comment on above: Performed By: #### B MP, CBC #### [address] MCV (RBC) [Entitic vol] 95.0 fL Normal 83.5-101 [facility] Comment on above: Performed By: #### B MP, CBC #### [address] Mean Corpuscular HGB Conc 34.6 g/dL Normal 32.5-35.6 [facility] Comment on above: Performed By: #### B MP, CBC #### [address] [address] [place] Monocytes (Bld) [#/Vol] 0.5 10*3/uL Normal 0.0-0.8 [facility] Comment on above: Performed By: #### B MP, CBC #### [address] Monocytes/100 WBC (Bld) 7.9 % Normal . [facility] Comment on above: Performed By: #### B MP, CBC #### [address] Neutrophils (Bld) [#/Vol] 4.3 10*3/uL Normal 1.8-7.7 [facility] Comment on above: Performed By: #### B MP, CBC #### [address] Neutrophils/100 WBC (Bld) 68.7 % Normal . [facility] Comment on above: Performed By: #### B MP, CBC #### [address] NRBC% 0.0 /100{WBC} Normal 0-0.5 [facility] Comment on above: Performed By: #### B MP, CBC #### [address] Platelet mean volume (Bld) [Entitic vol] 6.9 fL Normal 6.6-10.1 [facility] Comment on above: Performed By: #### B MP, CBC #### [address] Platelets (Bld) [#/Vol] 115 10*3/uL Low 150-450 [facility] Comment on above: Performed By: #### B MP, CBC #### [address] RBC (Bld) [#/Vol] 2.76 10*6/uL Low 3.90-5.60 [facility] Comment on above: Performed By: #### B MP, CBC #### [address] WBC (Bld) [#/Vol] 6.3 10*3/uL Normal 4.1-10.5 [facility] Comment on above: Performed By: #### B MP, CBC #### [facility] [address] Creatinine [Mass/volume] in Serum or PlasmaOrdered By: Alexa Corona on 05-13-2024 Creatinine [Mass/Vol] Creatinine [Mass/volume] in Serum or Plasma High 0.70-1.30 [facility] Eosinophils Auto (Bld) [#/Vo l]Ordered By: Alexa Corona on 05-13-2024 Eosinophils (Bld) [#/Vol] Automated eosinophil count 0.0-0.45 [facility] Eosinophils/100 WBC Auto (Bl d)Ordered By: Alexa Corona on 05-13-2024 Eosinophils/100 WBC (Bld) Automated eosinophil % . [facility] Erythrocyte distribution wid th Auto (RBC) [Ratio]Ordered By: Alexa Corona on 05-13-2024 Erythrocyte distribution width (RBC) [Ratio] Erythrocyte distribution width [Ratio] by Automated count High 12.0-14.8 [facility] Glucose Glucometer (BldC) [M ass/Vol]Ordered By: Alexa Corona on 05-13-2024 Glucose [Mass/Vol] Capillary blood glucose measurement by glucometer (mass/volume) [facility] Comment on above: Random Glucose Refer ence Range is dependent on time and content of last meal. Glucose of more than 200 mg/dL in a nonstressed, ambulatory subject supports the diagnosis of Diabetes Mellitus. Glucose Poct Glucometerson 0 05-13-2024 Glucose [Mass/Vol] 379 mg/dL Normal [facility] Comment on above: Result Comment: [place] Glucose Reference Range is dependent on time and content of last meal. Glucose of more than 200 mg/dL in a nonstressed, ambulatory subject supports the diagnosis of Diabetes Mellitus. PERFORMED BY: [facility] [address] [place] [address] PATHOLOGIST [employer]ING SERVICES OFFICER OSCAR ESCOBAR M.D. Performed By: #### C UU #### [facility] [address] Glucose [Mass/volume] in Ser um or PlasmaOrdered By: Alexa Corona on 05-13-2024 Glucose [Mass/Vol] Glucose [Mass/volume] in Serum or Plasma High 70-100 [facility] Comment on above: ADA recommended refe rence rangeRandom Glucose Reference Range is dependent on time and content of last meal. Glucose of more than 200 mg/dL in a nonstressed, ambulatory subject supports the diagnosis of Diabetes Mellitus. Hematocrit Auto (Bld) [Volum e fraction]Ordered By: Alexa Corona on 05-13-2024 Hematocrit (Bld) [Volume fraction] Hematocrit [Volume Fraction] of Blood by Automated count Low 38.8-50.0 [facility] Hemoglobin [Mass/volume] in BloodOrdered By: Alexa Corona on 05-13-2024 Hemoglobin (Bld) [Mass/Vol] Hemoglobin [Mass/volume] in Blood Low 13.0-17.0 [facility] Leukocytes [#/volume] correc gabrielle for nucleated erythrocytes in Blood by Automated counOrdered By: Alexa Corona on 05-13-2024 WBC corrected for nucl RBC Auto (Bld) [#/Vol] Leukocytes [#/volume] corrected for nucleated erythrocytes in Blood by Automated coun 4.1-10.5 [facility] Lymphocytes Auto (Bld) [#/Vo l]Ordered By: lAexa Corona on 05-13-2024 Lymphocytes (Bld) [#/Vol] Lymphocytes [#/volume] in Blood by Automated count 1.00-4.8 [facility] Lymphocytes/100 WBC Auto (Bl d)Ordered By: Alexa Corona on 05-13-2024 Lymphocytes/100 WBC (Bld) Lymphocytes/100 leukocytes in Blood by Automated count . [facility] MCH Auto (RBC) [Entitic mass ]Ordered By: Alexa Corona on 05-13-2024 MCH (RBC) [Entitic mass] MCH [Entitic mass] by Automated count 27.5-35.2 [facility] MCHC Auto (RBC) [Mass/Vol]Or dered By: Alexa Corona on 05-13-2024 MCHC (RBC) [Mass/Vol] MCHC [Mass/volume] by Automated count 32.5-35.6 [facility] MCV Auto (RBC) [Entitic vol] Ordered By: Alexa Corona on 05-13-2024 MCV (RBC) [Entitic vol] MCV [Entitic volume] by Automated count 83.5-101 [facility] Monocytes Auto (Bld) [#/Vol] Ordered By: Alexa Corona on 05-13-2024 Monocytes (Bld) [#/Vol] Automated blood monocyte count 0.0-0.8 [facility] Monocytes/100 WBC Auto (Bld) Ordered By: Alexa Corona on 05-13-2024 Monocytes/100 WBC (Bld) Automated monocyte % . [facility] Neutrophils Auto (Bld) [#/Vo l]Ordered By: Alexa Corona on 05-13-2024 Neutrophils (Bld) [#/Vol] Neutrophils [#/volume] in Blood by Automated count 1.8-7.7 [facility] Neutrophils/100 WBC Auto (Bl d)Ordered By: Alexa Corona on 05-13-2024 Neutrophils/100 WBC (Bld) Automated neutrophil % . [facility] No Panel InformationOrdered By: Alexa Corona on 05-13-2024 Estimated GFR (CKD-EPI) 46.982 mL/Min [facility] Creatinine Clearance (Chem 41.63 [facility] Nucleated erythrocytes [Pres ence] in Blood by Automated countOrdered By: Alexa Corona on 05-13-2024 Nucleated RBC Auto Ql (Bld) Nucleated erythrocytes [Presence] in Blood by Automated count 0-0.5 [facility] Platelet mean volume Auto (B ld) [Entitic vol]Ordered By: Alexa Corona on 05-13-2024 Platelet mean volume (Bld) [Entitic vol] Platelet mean volume [Entitic volume] in Blood by Automated count 6.6-10.1 [facility] Platelets Auto (Bld) [#/Vol] Ordered By: Alexa Corona on 05-13-2024 Platelets (Bld) [#/Vol] Platelets [#/volume] in Blood by Automated count Low 150-450 [facility] Potassium [Moles/volume] in Serum or PlasmaOrdered By: Alexa Corona on 05-13-2024 Potassium [Moles/Vol] Potassium [Moles/volume] in Serum or Plasma 3.5-5.1 [facility] RBC Auto (Bld) [#/Vol]Ordere d By: Alexa Corona on 05-13-2024 RBC (Bld) [#/Vol] Erythrocytes [#/volume] in Blood by Automated count Low 3.90-5.60 [facility] Serum or plasma anion gap de terminationOrdered By: Alexa Corona on 05-13-2024 Anion gap [Moles/Vol] Serum or plasma anion gap determination 6.0-15.0 [facility] Sodium [Moles/volume] in Ser um or PlasmaOrdered By: Alexa Corona on 05-13-2024 Sodium [Moles/Vol] Sodium [Moles/volume] in Serum or Plasma 136-145 [facility] Urea nitrogen [Mass/volume] in Serum or PlasmaOrdered By: Alexa Corona on 05-13-2024 Urea nitrogen [Mass/Vol] Urea nitrogen [Mass/volume] in Serum or Plasma High 7-25 [facility] WBC Auto (Bld) [#/Vol]Ordere d By: Alexa Corona on 05-13-2024 WBC (Bld) [#/Vol] Leukocytes [#/volume] in Blood by Automated count 4.1-10.5 [facility] Basic Metabolic Panelon 04-23 Anion gap [Moles/Vol] 9.2 mmol/L Normal 6.0-15.0 [facility] Comment on above: Performed By: #### B MP, CBC #### [facility] [address] Calcium [Mass/Vol] 8.6 mg/dL Normal 8.6-10.3 [facility] Comment on above: Performed By: #### B MP, CBC #### [facility] [address] [place] [address] Chloride [Moles/Vol] 103 mmol/L Normal 98-107 [facility] Comment on above: Performed By: #### B MP, CBC #### [address] CO2 [Moles/Vol] 34.1 mmol/L High 21.0-31.0 [facility] Comment on above: Performed By: #### B MP, CBC #### [address] Creatinine [Mass/Vol] 1.85 mg/dL High 0.70-1.30 [facility] Comment on above: Performed By: #### B MP, CBC #### [address] Creatinine Clr Calc Pharmacy 33.98 Normal [facility] Comment on above: Result Comment: PERF ORMED BY: [place] [address] PATHOLOGIST [employer] OFFICER OSCAR ESCOBAR M.D. Performed By: #### B MP, CBC #### [address] Estimated GFR 36.821 mL/Min Normal [facility] Comment on above: Performed By: #### B MP, CBC #### [address] Glucose [Mass/Vol] 48 mg/dL Off scale low 70-100 [facility] Comment on above: Result Comment: Crit ical Result Called to and read back by: SAM TIPTON at: 05/12/2024 06:23:44 by: Random Glucose Reference Range is dependent on time and content of last meal. Glucose of more than 200 mg/dL in a nonstressed, ambulatory subject supports the diagnosis of Diabetes Mellitus. ADA recommended reference range Performed By: #### B MP, CBC #### [address] Potassium [Moles/Vol] 3.3 mmol/L Low 3.5-5.1 [facility] Comment on above: Performed By: #### B MP, CBC #### [address] Sodium [Moles/Vol] 143 mmol/L Normal 136-145 [facility] Comment on above: Performed By: #### B MP, CBC #### [address] Urea nitrogen [Mass/Vol] 75 mg/dL High 7-25 [facility] Comment on above: Performed By: #### B MP, CBC #### [address] Complete Blood Count Auto Di ffon 05-12-2024 Basophils (Bld) [#/Vol] 0.0 10*3/uL Normal 0.0-0.2 [facility] Comment on above: Result Comment: PERF ORMED BY: [place] [address] PATHOLOGIST [employer] OFFICER OSCAR ESCOBAR M.D. Performed By: #### B MP, CBC #### [address] Basophils/100 WBC (Bld) 0.6 % Normal . [facility] Comment on above: Performed By: #### B MP, CBC #### [address] Eosinophils (Bld) [#/Vol] 0.3 10*3/uL Normal 0.0-0.45 [facility] Comment on above: Performed By: #### B MP, CBC #### [address] Eosinophils/100 WBC (Bld) 4.5 % Normal . [facility] Comment on above: Performed By: #### B MP, CBC #### [address] Erythrocyte distribution width (RBC) [Ratio] 16.7 % High 12.0-14.8 [facility] Comment on above: Performed By: #### B MP, CBC #### [address] [place] [address] [place] Hematocrit (Bld) [Volume fraction] 26.9 % Low 38.8-50.0 [facility] Comment on above: Performed By: #### B MP, CBC #### [address] Hemoglobin (Bld) [Mass/Vol] 9.1 g/dL Low 13.0-17.0 [facility] Comment on above: Performed By: #### B MP, CBC #### [address] Lymphocytes (Bld) [#/Vol] 1.0 10*3/uL Normal 1.00-4.8 [facility] Comment on above: Performed By: #### B MP, CBC #### [address] Lymphocytes/100 WBC (Bld) 16.4 % Normal . [facility] Comment on above: Performed By: #### B MP, CBC #### [address] MCH (RBC) [Entitic mass] 31.8 pg Normal 27.5-35.2 [facility] Comment on above: Performed By: #### B MP, CBC #### [address] MCV (RBC) [Entitic vol] 93.9 fL Normal 83.5-101 [facility] Comment on above: Performed By: #### B MP, CBC #### [address] Mean Corpuscular HGB Conc 33.8 g/dL Normal 32.5-35.6 [facility] Comment on above: Performed By: #### B MP, CBC #### [address] Monocytes (Bld) [#/Vol] 0.4 10*3/uL Normal 0.0-0.8 [facility] Comment on above: Performed By: #### B MP, CBC #### [place] [address] Monocytes/100 WBC (Bld) 6.8 % Normal . [facility] Comment on above: Performed By: #### B MP, CBC #### [address] Neutrophils (Bld) [#/Vol] 4.3 10*3/uL Normal 1.8-7.7 [facility] Comment on above: Performed By: #### B MP, CBC #### [address] Neutrophils/100 WBC (Bld) 71.7 % Normal . [facility] Comment on above: Performed By: #### B MP, CBC #### [address] NRBC% 0.1 /100{WBC} Normal 0-0.5 [facility] Comment on above: Performed By: #### B MP, CBC #### [address] Platelet mean volume (Bld) [Entitic vol] 6.8 fL Normal 6.6-10.1 [facility] Comment on above: Performed By: #### B MP, CBC #### [address] Platelets (Bld) [#/Vol] 115 10*3/uL Low 150-450 [facility] Comment on above: Performed By: #### B MP, CBC #### [address] RBC (Bld) [#/Vol] 2.87 10*6/uL Low 3.90-5.60 [facility] Comment on above: Performed By: #### B MP, CBC #### [address] WBC (Bld) [#/Vol] 6.1 10*3/uL Normal 4.1-10.5 [facility] Comment on above: Performed By: #### B MP, CBC #### [address] Glucose Poct Glucometerson 0 05-12-2024 Glucose [Mass/Vol] 383 mg/dL Normal [facility] Comment on above: Result Comment: [place] om Glucose Reference Range is dependent on time and content of last meal. Glucose of more than 200 mg/dL in a nonstressed, ambulatory subject supports the diagnosis of Diabetes Mellitus. PERFORMED BY: [address] [place] [address] PATHOLOGIST B[employer]ING SERVICES OFFICER OSCAR ESCOBAR M.D. Performed By: #### B MP, CBC #### [facility] [address] [place] [address] [place] Glucose [Mass/Vol] 287 mg/dL Normal [facility] Comment on above: Result Comment: [place] om Glucose Reference Range is dependent on time and content of last meal. Glucose of more than 200 mg/dL in a nonstressed, ambulatory subject supports the diagnosis of Diabetes Mellitus. PERFORMED BY: [address] [place] [address] PATHOLOGIST B[employer]ING SERVICES OFFICER OSCAR ESCOBAR M.D. Performed By: #### B MP, CBC #### [address] Glucose [Mass/Vol] 214 mg/dL Normal [facility] Comment on above: Result Comment: [place] om Glucose Reference Range is dependent on time and content of last meal. Glucose of more than 200 mg/dL in a nonstressed, ambulatory subject supports the diagnosis of Diabetes Mellitus. PERFORMED BY: [address] [place] [address] PATHOLOGIST B[employer]ING SERVICES OFFICER OSCAR ESCOBAR M.D. Performed By: #### B MP, CBC #### [facility] [address] [place] [address] [place] Glucose [Mass/Vol] 91 mg/dL Normal [facility] Comment on above: Result Comment: [place] om Glucose Reference Range is dependent on time and content of last meal. Glucose of more than 200 mg/dL in a nonstressed, ambulatory subject supports the diagnosis of Diabetes Mellitus. PERFORMED BY: [place] [address] PATHOLOGIST B[employer] SERVICES OFFICER OSCAR ESCOBAR M.D. Performed By: #### B MP, CBC #### [address] Glucose [Mass/Vol] 63 mg/dL Normal [facility] Comment on above: Result Comment: [place] om Glucose Reference Range is dependent on time and content of last meal. Glucose of more than 200 mg/dL in a nonstressed, ambulatory subject supports the diagnosis of Diabetes Mellitus. PERFORMED BY: [place] [address] PATHOLOGIST B[employer] SERVICES OFFICER OSCAR ESCOBAR M.D. Performed By: #### B SARA, CBC #### [address] Commemt1 Glu2: Cleaned Meter Normal [facility] Comment on above: Result Comment: PERF ORMED BY: [place] [address] PATHOLOGIST B[employer] SERVICES OFFICER OSCAR ESCOBAR M.D. Performed By: #### B SARA, CBC #### [address] Glucose [Mass/Vol] 93 mg/dL Normal [facility] Comment on above: Result Comment: [place] Glucose Reference Range is dependent on time and content of last meal. Glucose of more than 200 mg/dL in a nonstressed, ambulatory subject supports the diagnosis of Diabetes Mellitus. Performed By: #### B MP, CBC #### [address] No Panel InformationOrdered By: Alexa Corona on 05-12-2024 Bedside Glucose Comment Glu2: cleaned meter [facility] X-ray reportOrdered By: Simone Chakraborty on 05-12-2024 Study report [facility] [place] [address] [place] [address] XRay Report Signed Patient: Leighton Arciniega MR#: [id number] : 1945 Acct:[id number] Age/Sex: 78 / M ADM Date: 5 Loc: Room: [address] [place] [address] Type: ADM IN Attending Dr: Alexa Corona MD Copies to: Alexa Corona MD~ Ordering Provider: Alexa Corona MD Date of Service: 05/12/24 XR/XR chest 1V portable: fu chf Plain film chest Single view HISTORY: Follow-up assessment of the lung densities history CHF. Shortness of breath COMPARISON: 05/09/2024 FINDINGS: SUPPORT DEVICES: None POSTSURGICAL CHANGES: Cardiac device remains intact. HEART: Within normal limits PULMONARY DAVID: Within normal limits MEDIASTINUM: Unremarkable LUNGS AND PLEURA: Improving groundglass parenchymal densities. Moderate right and mild left residual densities. No large pleural effusion. No pneumothorax. BONY STRUCTURES: Intact ADDITIONAL FINDINGS None XR/XR chest 1V portable IMPRESSION: Improving parenchymal densities. Impression dictated by: Benton Chakraborty M.D.05/12/2024 9:06 AM Dictation Location: [place] [address] Transcribed By: [facility] 05/12/24905 Dictated By: Benton Chakraborty DO 05/12/24903 Signed By: 05/12/24 09 [facility] XR chest 1V portableon 05-12 XR chest 1V portable [facility] [place] [address] XRay Report Signed Patient: Leighton Arciniega MR#: [id number] : 1945 Acct:[id number] Age/Sex: 78 / M ADM Date: 05/09/24 Loc: Room: [address] [place] [address] Type: ADM IN Attending Dr: Alexa Corona MD Copies to: Alexa Corona MD Ordering Provider: Alexa Corona MD Date of Service: 05/12/24 XR/XR chest 1V portable: fu chf Plain film chest Single view HISTORY: Follow-up assessment of the lung densities history CHF. Shortness of breath COMPARISON: 05/09/2024 FINDINGS: SUPPORT DEVICES: None POSTSURGICAL CHANGES: Cardiac device remains intact. HEART: Within normal limits PULMONARY DAVID: Within normal limits MEDIASTINUM: Unremarkable LUNGS AND PLEURA: Improving groundglass parenchymal densities. Moderate right and mild left residual densities. No large pleural effusion. No pneumothorax. BONY STRUCTURES: Intact ADDITIONAL FINDINGS None XR/XR chest 1V portable IMPRESSION: Improving parenchymal densities. Impression dictated by: Benton Chakraborty M.D.05/12/2024 9:06 AM Dictation Location: [facility]--16 Transcribed By: [facility] 05/12/24905 Dictated By: Benton Chakraborty DO 05/12/24903 Signed By: 05/12/249[address] Normal [facility] Basic Metabolic Panelon 04-23 Anion gap [Moles/Vol] 11.5 mmol/L Normal 6.0-15.0 [facility] Comment on above: Performed By: #### B MP, CBC #### [address] Calcium [Mass/Vol] 9.2 mg/dL Normal 8.6-10.3 [facility] Comment on above: Performed By: #### B MP, CBC #### [address] Chloride [Moles/Vol] 101 mmol/L Normal 98-107 [facility] Comment on above: Performed By: #### B MP, CBC #### [address] CO2 [Moles/Vol] 32.9 mmol/L High 21.0-31.0 [facility] Comment on above: Performed By: #### B MP, CBC #### [place] [address] [place] Creatinine [Mass/Vol] 2.31 mg/dL High 0.70-1.30 [facility] Comment on above: Performed By: #### B MP, CBC #### [place] [address] [place] Creatinine Clr Calc Pharmacy 29.40 Normal [facility] Comment on above: Result Comment: PERF ORMED BY: [place] [address] PATHOLOGIST B[employer] OFFICER OSCAR ESCOBAR M.D. Performed By: #### B MP, CBC #### [address] Estimated GFR 28.208 mL/Min Normal [facility] Comment on above: Performed By: #### B MP, CBC #### [address] Glucose [Mass/Vol] 57 mg/dL Low 70-100 [facility] Comment on above: Result Comment: [facility] Glucose Reference Range is dependent on time and content of last meal. Glucose of more than 200 mg/dL in a nonstressed, ambulatory subject supports the diagnosis of Diabetes Mellitus. ADA recommended reference range Performed By: #### B MP, CBC #### [address] Potassium [Moles/Vol] 3.4 mmol/L Low 3.5-5.1 [facility] Comment on above: Performed By: #### B MP, CBC #### [address] Sodium [Moles/Vol] 142 mmol/L Significant change down 136-145 [facility] Comment on above: Performed By: #### B MP, CBC #### [address] Urea nitrogen [Mass/Vol] 87 mg/dL High 7-25 [facility] Comment on above: Performed By: #### B MP, CBC #### [address] Complete Blood Count Auto Di ffon 05-11-2024 Basophils (Bld) [#/Vol] 0.0 10*3/uL Normal 0.0-0.2 [facility] Comment on above: Result Comment: PERF ORMED BY: [place] [address] PATHOLOGIST B[employer] OFFICER OSCAR ESCOBAR M.D. Performed By: #### B MP, CBC #### [address] [address] [place] Basophils/100 WBC (Bld) 0.1 % Normal . [facility] Comment on above: Performed By: #### B MP, CBC #### [address] Eosinophils (Bld) [#/Vol] 0.2 10*3/uL Normal 0.0-0.45 [facility] Comment on above: Performed By: #### B MP, CBC #### [address] Eosinophils/100 WBC (Bld) 3.3 % Normal . [facility] Comment on above: Performed By: #### B MP, CBC #### [address] Erythrocyte distribution width (RBC) [Ratio] 16.7 % High 12.0-14.8 [facility] Comment on above: Performed By: #### B MP, CBC #### [address] Hematocrit (Bld) [Volume fraction] 29.6 % Low 38.8-50.0 [facility] Comment on above: Performed By: #### B MP, CBC #### [address] Hemoglobin (Bld) [Mass/Vol] 10.1 g/dL Low 13.0-17.0 [facility] Comment on above: Performed By: #### B MP, CBC #### [address] Lymphocytes (Bld) [#/Vol] 0.8 10*3/uL Low 1.00-4.8 [facility] Comment on above: Performed By: #### B MP, CBC #### [address] Lymphocytes/100 WBC (Bld) 11.7 % Normal . [facility] Comment on above: Performed By: #### B MP, CBC #### [address] MCH (RBC) [Entitic mass] 32.2 pg Normal 27.5-35.2 [facility] Comment on above: Performed By: #### B MP, CBC #### [address] MCV (RBC) [Entitic vol] 94.5 fL Normal 83.5-101 [facility] Comment on above: Performed By: #### B MP, CBC #### [address] Mean Corpuscular HGB Conc 34.1 g/dL Normal 32.5-35.6 [facility] Comment on above: Performed By: #### B MP, CBC #### [address] Monocytes (Bld) [#/Vol] 0.5 10*3/uL Normal 0.0-0.8 [facility] Comment on above: Performed By: #### B MP, CBC #### [address] Monocytes/100 WBC (Bld) 6.8 % Normal . [facility] Comment on above: Performed By: #### B MP, CBC #### [address] Neutrophils (Bld) [#/Vol] 5.2 10*3/uL Normal 1.8-7.7 [facility] Comment on above: Performed By: #### B MP, CBC #### [address] Neutrophils/100 WBC (Bld) 78.1 % Normal . [facility] Comment on above: Performed By: #### B MP, CBC #### [address] NRBC% 0.1 /100{WBC} Normal 0-0.5 [facility] Comment on above: Performed By: #### B MP, CBC #### [address] Platelet mean volume (Bld) [Entitic vol] 6.5 fL Low 6.6-10.1 [facility] Comment on above: Performed By: #### B MP, CBC #### [facility] [address] Platelets (Bld) [#/Vol] 129 10*3/uL Low 150-450 [facility] Comment on above: Performed By: #### B MP, CBC #### [address] RBC (Bld) [#/Vol] 3.13 10*6/uL Low 3.90-5.60 [facility] Comment on above: Performed By: #### B MP, CBC #### [facility] [address] WBC (Bld) [#/Vol] 6.6 10*3/uL Normal 4.1-10.5 [facility] Comment on above: Performed By: #### B MP, CBC #### [address] ECH echo transthoracicon ECH echo transthoracic [facility] Main [place] [address] [place] [address] Echocardiogram Signed Patient: Leighton Arciniega MR#: [id number] : 1945 Acct:[id number] Age/Sex: 78 / M ADM Date: 05/09/24 Loc: Room: [address] [place] [address] Type: ADM IN Attending Dr: Alexa Corona MD Ordering Provider: Osvaldo Dickinson MD Date of Service: 05/11/24 ECH/ECH echo transthoracic: reassess EF - [facility] wants full echo morning Copies to: MD Osvaldo Celeste MD Ordering Physician: Osvaldo Dickinson Height: 70 in Weight: 193 lb Performed By: GRACE Peña BSA: 2.1 m2 BP: 136/65 mmHg HR: 85 Reason For Study: reassess EF - [facility] wants full echo morning History: CHF, 2024 EF was 50%, 2024 EF [id number]% (both echos done at [place]), HTN, DM, DVT, SSS, Pacemaker, A-Fib., CKD, COPD, VIRGILIO, [place] Interpretation Summary Ejection Fraction = 20-25%. The left ventricle is severly dilated. Moderate to severe concentric left ventricular hypertrophy. There is severe global hypokinesis of the left ventricle. The right ventricle is mildly dilated. The left atrium appears mildly dilated. There is trace mitral regurgitation. There is trace tricuspid regurgitation. Right ventricular systolic pressure is elevated at 30-40mmHg. There is a pacemaker lead in the right ventricle. There is no comparison study available. Procedure/Quality: A two-dimensional transthoracic echocardiogram with color flow, Doppler and injection of contrast agent Definity was performed. The study was technically good in quality. Left Ventricle: Moderate to severe concentric left ventricular hypertrophy. The left ventricle is severly dilated. Ejection Fraction = 20-25%. Indeterminate diastolic function. There is severe global hypokinesis of the left ventricle. Left Atrium: The left atrium appears mildly dilated. Right Atrium: The right atrium is not well visualized. Right Ventricle: The right ventricle is not well visualized. The right ventricle is mildly dilated. There is a pacemaker lead in the right ventricle. Aortic Valve: The aortic valve is normal in structure. The aortic valve is trileaflet. No hemodynamically significant valvular aortic stenosis. No aortic regurgitation is present. Mitral Valve: The mitral valve is mildly sclerotic. No significant mitral valve stenosis. Both leaflets are pliable and mobile. There is trace mitral regurgitation. Tricuspid Valve: The tricuspid valve is normal in structure. There is trace tricuspid regurgitation. Right ventricular systolic pressure is elevated at 30-40mmHg. Pulmonic Valve: The pulmonic valve is not well visualized. No significant pulmonic regurgitation. Arteries: The aortic root is normal size. Pericardium/Pleura: No pericardial effusion seen. IVC/Hepatic Veins: The inferior vena cava is normal in size, with a normal collapsibility index. Measurements with Normals IVSd: 1.7 cm (0.7-1.1 cm)LVIDd: 6.2 cm (3.7-5.4 cm) LVPWd: 1.7 cm (0.7-1.1 cm)LVIDs: 5.2 cm (2.3-3.6 cm) LA dimension: 4.2 cm (2.3-4.0 cm)Ao root diam: 3.1 cm(2.0-3.6 cm) asc Aorta Diam: 3.8 cm(2.1-3.4cm) Doppler with Normals RVSP(TR): 32.7 mmHg (18-35mmHg) LV V1 max: 113.5 cm/sec (0.7-1.7m/s)MV E max sarah: 75.0 cm/sec(0.8-1.3m/s) MV A max sarah: 90.0 cm/sec(0.0-0.0m/s) MV E/A: 0.83 (<1.5) MMode/2D Measurements Calculations RVDd: 3.3 cm FS: 17.2 % Ao root area: LVOT diam: 2.2 cm TAPSE: 2.1 cm EDV(Teich): 197.4 ml 7.7 cm2 LVOT area: 3.8 cm2 RV S Sarah: ESV(Teich): 127.9 ml 15.2 cm/sec EF(Teich): 35.2 % __ LVLd ap4: 9.7 cm SV(MOD-sp4): 109.0 ml LAV(MOD-sp4): LA A2 area: 18.5 cm2 EDV(MOD-sp4): 79.4 ml 308.5 ml LAV(MOD-sp2): LA A4 area: 23.7 cm2 LVLs ap4: 8.7 cm 52.0 ml LA length (vol): ESV(MOD-sp4): 5.5 cm 199.5 ml LA vol: 67.9 ml EF(MOD-sp4): LA vol index: 35.3 % 33.0 ml/m2 __ RA Volume: 39.0 ml RA Volume Index: 18.9 ml/m2 Doppler Measurements Calculations MV dec time: MV V2 max: E/E' lat: 8.7 MV P1/2t max sarah: 0.30 sec 92.7 cm/sec E/E' med: 14.4 90.9 cm/sec MV max PG: MV P1/2t: 65.1 msec 69.0 mmHg MV V2 mean: MVA(P1/2t): 3.4 cm2 68.4 cm/sec MV dec slope: MV mean P.4 cm/sec2 2.1 mmHg MV V2 VTI: 22.0 cm MVA(VTI): 4.4 cm2 __ Ao V2 max: LV V1 max PG: MR max sarah: TV max P.0 mmHg 178.1 cm/sec 5.2 mmHg 416.4 cm/sec Ao max PG: LV V1 mean PG: MR max P.7 mmHg 2.9 mmHg 73.0 mmHg Ao mean PG: LV V1 mean: 7.1 mmHg 79.9 cm/sec Ao V2 mean: LV V1 VTI: 126.8 cm/sec 25.7 cm Ao V2 VTI: 37.2 cm NATY(I,D): 2.6 cm2 NATY(V,D): 2.4 cm2 __ TR max sarah: 263.3 cm/sec TR max P.7 mmHg RAP systole: 5.0 mmHg Transcribed By: DONTAE Performed (more content not included)... Normal [facility] Glucose Poct Glucometerson 0 05-11-2024 Commemt1 Glu2: Cleaned Meter Normal [facility] Comment on above: Result Comment: PERF ORMED BY: [facility] [address] [place] [address] PATHOLOGIST BANKING SERVICES OFFICER OSCAR ESCOBAR M.D. Performed By: #### G LULS #### Point of Care testing , Glucose [Mass/Vol] 218 mg/dL Normal [facility] Comment on above: Result Comment: [place] Glucose Reference Range is dependent on time and content of last meal. Glucose of more than 200 mg/dL in a nonstressed, ambulatory subject supports the diagnosis of Diabetes Mellitus. Performed By: #### G LULS #### Point of Care testing , Glucose [Mass/Vol] 187 mg/dL Normal [facility] Comment on above: Result Comment: [place] om Glucose Reference Range is dependent on time and content of last meal. Glucose of more than 200 mg/dL in a nonstressed, ambulatory subject supports the diagnosis of Diabetes Mellitus. PERFORMED BY: [place] [address] PATHOLOGIST BANKING SERVICES OFFICER OSCAR ESCOBAR M.D. Performed By: #### B MP, CBC #### [address] Glucose [Mass/Vol] 333 mg/dL Normal [facility] Comment on above: Result Comment: [place] om Glucose Reference Range is dependent on time and content of last meal. Glucose of more than 200 mg/dL in a nonstressed, ambulatory subject supports the diagnosis of Diabetes Mellitus. PERFORMED BY: [place] [address] PATHOLOGIST BANKING SERVICES OFFICER OSCAR ESCOBAR M.D. Performed By: #### B MP, CBC #### [place] [address] [place] Commemt1 Glu2: Cleaned Meter Normal [facility] Comment on above: Result Comment: PERF ORMED BY: [place] [address] PATHOLOGIST BANKING SERVICES OFFICER OSCAR ESCOBAR M.D. Performed By: #### B MP, CBC #### [place] [address] [place] Glucose [Mass/Vol] 168 mg/dL Normal [facility] Comment on above: Result Comment: [place] om Glucose Reference Range is dependent on time and content of last meal. Glucose of more than 200 mg/dL in a nonstressed, ambulatory subject supports the diagnosis of Diabetes Mellitus. Performed By: #### B MP, CBC #### [place] [address] [place] Glucose [Mass/Vol] 69 mg/dL Normal [facility] Comment on above: Result Comment: [place] om Glucose Reference Range is dependent on time and content of last meal. Glucose of more than 200 mg/dL in a nonstressed, ambulatory subject supports the diagnosis of Diabetes Mellitus. PERFORMED BY: [place] [address] PATHOLOGIST BANKING SERVICES OFFICER OSCAR ESCOBAR M.D. Performed By: #### B MP, CBC #### [address] Commemt1 Glu2: Cleaned Meter Normal [facility] Comment on above: Result Comment: PERF ORMED BY: [place] [address] PATHOLOGIST BANKING SERVICES OFFICER OSCAR ESCOBAR M.D. Performed By: #### B MP, CBC #### [address] Glucose [Mass/Vol] 80 mg/dL Normal [facility] Comment on above: Result Comment: [facility] Glucose Reference Range is dependent on time and content of last meal. Glucose of more than 200 mg/dL in a nonstressed, ambulatory subject supports the diagnosis of Diabetes Mellitus. Performed By: #### B MP, CBC #### [address] Basic Metabolic Panelon 04-22 Anion gap [Moles/Vol] 12.6 mmol/L Normal 6.0-15.0 [facility] Comment on above: Performed By: #### B MP, LIPID, CBC #### [place] [address] [place] Calcium [Mass/Vol] 8.9 mg/dL Normal 8.6-10.3 [facility] Comment on above: Performed By: #### B MP, LIPID, CBC #### [place] [address] [place] Chloride [Moles/Vol] 101 mmol/L Normal 98-107 [facility] Comment on above: Performed By: #### B MP, LIPID, CBC #### [place] [address] [place] CO2 [Moles/Vol] 26.6 mmol/L Normal 21.0-31.0 [facility] Comment on above: Performed By: #### B MP, LIPID, CBC #### [address] Creatinine [Mass/Vol] 2.26 mg/dL High 0.70-1.30 [facility] Comment on above: Performed By: #### B MP, LIPID, CBC #### [place] [address] [place] Creatinine Clr Calc Pharmacy 31.85 Normal [facility] Comment on above: Performed By: #### B MP, LIPID, CBC #### [address] Estimated GFR 28.958 mL/Min Normal [facility] Comment on above: Performed By: #### B MP, LIPID, CBC #### [address] Glucose [Mass/Vol] 131 mg/dL High 70-100 [facility] Comment on above: Result Comment: [place] Glucose Reference Range is dependent on time and content of last meal. Glucose of more than 200 mg/dL in a nonstressed, ambulatory subject supports the diagnosis of Diabetes Mellitus. ADA recommended reference range Performed By: #### B MP, LIPID, CBC #### [address] Potassium [Moles/Vol] 4.2 mmol/L Normal 3.5-5.1 [facility] Comment on above: Performed By: #### B MP, LIPID, CBC #### [place] [address] [place] Sodium [Moles/Vol] 136 mmol/L Normal 136-145 [facility] Comment on above: Performed By: #### B MP, LIPID, CBC #### [address] Urea nitrogen [Mass/Vol] 85 mg/dL High 7-25 [facility] Comment on above: Performed By: #### B MP, LIPID, CBC #### [place] [address] [place] Cholesterol [Mass/volume] in Serum or PlasmaOrdered By: Alexa Corona on 05-10-2024 Cholesterol [Mass/Vol] Cholesterol [Mass/volume] in Serum or Plasma Low 140-200 [facility] Comment on above: Chol less than 200 m g/dl low riskChol 201-239 mg/dl borderline riskChol 240 mg/dl and greater high risk Cholesterol in HDL [Mass/vol ume] in Serum or PlasmaOrdered By: Alexa Corona on 05-10-2024 Cholesterol in HDL [Mass/Vol] Serum or plasma high density lipoprotein (HDL) cholesterol measurement [facility] Comment on above: HDL CHOL ATP-III CLA SSIFICATION Cardiovascular RiskHDL > or equal to 60 mg/dL LOWHDL < 40 mg/dL HIGH Cholesterol in LDL Calc [Mas s/Vol]Ordered By: Alexa Corona on 05-10-2024 Cholesterol in LDL [Mass/Vol] Cholesterol in LDL [Mass/volume] in Serum or Plasma by calculation 0-100 [facility] Comment on above: LDL ATP III CLASSIFI CATIONLDL less than 100 mg/dL OptimalLDL 100-129 mg/dL Near or above optimalLDL 130-159 mg/dL Borderline highLDL 160-189 mg/dL HighLDL greater than 189 mg/dL Very high Cholesterol in VLDL Calc [Ma ss/Vol]Ordered By: Alexa Corona on 05-10-2024 Cholesterol in VLDL [Mass/Vol] Cholesterol in VLDL [Mass/volume] in Serum or Plasma by calculation [facility] Clostridioides difficile tox in B tcdB gene [Presence] in Stool by TORI with probe deteOrdered By: Alexa Corona on 05-10-2024 C. difficile toxin B tcdB gene TORI+probe Ql (Stl) Clostridioides difficile toxin B tcdB gene [Presence] in Stool by TORI with probe dete Negative [facility] Comment on above: Testing performed by RT-PCR Clostridium Difficileon 04-22 Clostridium Difficile Negative Normal Negative [facility] Comment on above: Order Comment: > or = to 3 loose/watery stools in the last 24 HRS? Y Is patient on promotility agents or tube feeding? N Result Comment: Test ing performed by RT-PCR PERFORMED BY: [place] [address] PATHOLOGIST BANKING SERVICES OFFICER OSCAR ESCOBAR M.D. Performed By: #### C UU #### [address] Complete Blood Count Auto Di ffon 05-10-2024 Basophils (Bld) [#/Vol] 0.1 10*3/uL Normal 0.0-0.2 [facility] Comment on above: Result Comment: PERF ORMED BY: [place] [address] PATHOLOGIST BANKING SERVICES OFFICER OSCAR ESCOBAR M.D. Performed By: #### B MP, LIPID, CBC #### [address] Basophils/100 WBC (Bld) 0.7 % Normal . [facility] Comment on above: Performed By: #### B MP, LIPID, CBC #### [address] Eosinophils (Bld) [#/Vol] 0.0 10*3/uL Normal 0.0-0.45 [facility] Comment on above: Performed By: #### B MP, LIPID, CBC #### [address] Eosinophils/100 WBC (Bld) 0.5 % Normal . [facility] Comment on above: Performed By: #### B MP, LIPID, CBC #### [address] Erythrocyte distribution width (RBC) [Ratio] 16.3 % High 12.0-14.8 [facility] Comment on above: Performed By: #### B MP, LIPID, CBC #### [address] Hematocrit (Bld) [Volume fraction] 27.5 % Low 38.8-50.0 [facility] Comment on above: Performed By: #### B MP, LIPID, CBC #### [address] Hemoglobin (Bld) [Mass/Vol] 9.4 g/dL Low 13.0-17.0 [facility] Comment on above: Performed By: #### B MP, LIPID, CBC #### [address] Lymphocytes (Bld) [#/Vol] 0.6 10*3/uL Low 1.00-4.8 [facility] Comment on above: Performed By: #### B MP, LIPID, CBC #### [address] Lymphocytes/100 WBC (Bld) 6.2 % Normal . [facility] Comment on above: Performed By: #### B MP, LIPID, CBC #### [address] MCH (RBC) [Entitic mass] 32.5 pg Normal 27.5-35.2 [facility] Comment on above: Performed By: #### B MP, LIPID, CBC #### [address] MCV (RBC) [Entitic vol] 94.9 fL Normal 83.5-101 [facility] Comment on above: Performed By: #### B MP, LIPID, CBC #### [address] Mean Corpuscular HGB Conc 34.2 g/dL Normal 32.5-35.6 [facility] Comment on above: Performed By: #### B MP, LIPID, CBC #### [address] Monocytes (Bld) [#/Vol] 0.3 10*3/uL Normal 0.0-0.8 [facility] Comment on above: Performed By: #### B MP, LIPID, CBC #### [address] Monocytes/100 WBC (Bld) 3.3 % Normal . [facility] Comment on above: Performed By: #### B MP, LIPID, CBC #### [place] [address] [place] Neutrophils (Bld) [#/Vol] 8.5 10*3/uL High 1.8-7.7 [facility] Comment on above: Performed By: #### B MP, LIPID, CBC #### [address] Neutrophils/100 WBC (Bld) 89.3 % Normal . [facility] Comment on above: Performed By: #### B MP, LIPID, CBC #### [address] NRBC% 0.0 /100{WBC} Normal 0-0.5 [facility] Comment on above: Performed By: #### B MP, LIPID, CBC #### [address] Platelet mean volume (Bld) [Entitic vol] 6.8 fL Normal 6.6-10.1 [facility] Comment on above: Performed By: #### B MP, LIPID, CBC #### [place] [address] [place] Platelets (Bld) [#/Vol] 124 10*3/uL Low 150-450 [facility] Comment on above: Performed By: #### B MP, LIPID, CBC #### [address] RBC (Bld) [#/Vol] 2.90 10*6/uL Low 3.90-5.60 [facility] Comment on above: Performed By: #### B MP, LIPID, CBC #### [place] [address] [place] WBC (Bld) [#/Vol] 9.5 10*3/uL Normal 4.1-10.5 [facility] Comment on above: Performed By: #### B MP, LIPID, CBC #### [address] ECG 12 lead ECGon 05-10-2024 ECG 12 lead ECG [facility] Main [place] [address] [place] [id number] Electrocardiograph Report Signed Patient: Leighton Arciniega MR#: [id number] : 1945 Acct:[id number] Age/Sex: 78 / M ADM Date: 05/09/24 Loc: Room: [address] [place] [address] Type: ADM IN Attending Dr: Alexa Corona MD Ordering Provider: Alexa Corona MD Date of Service: 05/10/24 ECG/ECG 12 lead ECG: abn Copies to: Test Reason : Blood Pressure : */* mmHG Vent. Rate : 73 BPM Atrial Rate : 101 BPM P-R Int : * ms QRS Dur : 210 ms QT Int : 496 ms P-R-T Axes : * -74 105 degrees QTcB Int : 546 ms Ventricular-paced rhythm Confirmed by John Nettles ([id number]) on 05/10/2024 3:54:15 PM Referred By: Electronically Signed By: John Nettles Transcribed By: MUS Signed By John Nettles MD 05/10/24 1554 Normal [facility] Glucose Poct Glucometerson 0 05-10-2024 Glucose [Mass/Vol] 150 mg/dL Normal [facility] Comment on above: Result Comment: [facility] Glucose Reference Range is dependent on time and content of last meal. Glucose of more than 200 mg/dL in a nonstressed, ambulatory subject supports the diagnosis of Diabetes Mellitus. PERFORMED BY: [address] [address] PATHOLOGIST BANKING SERVICES OFFICER OSCAR ESCOBAR M.D. Performed By: #### G LULS #### Point of Care testing , Glucose [Mass/Vol] 106 mg/dL Normal [facility] Comment on above: Result Comment: [facility] Glucose Reference Range is dependent on time and content of last meal. Glucose of more than 200 mg/dL in a nonstressed, ambulatory subject supports the diagnosis of Diabetes Mellitus. PERFORMED BY: [address] [address] PATHOLOGIST BANKING SERVICES OFFICER OSCAR ESCOBAR M.D. Performed By: #### C UU #### [address] Glucose [Mass/Vol] 187 mg/dL Normal [facility] Comment on above: Result Comment: [place] om Glucose Reference Range is dependent on time and content of last meal. Glucose of more than 200 mg/dL in a nonstressed, ambulatory subject supports the diagnosis of Diabetes Mellitus. PERFORMED BY: [place] [address] PATHOLOGIST BANKING SERVICES OFFICER OSCAR ESCOBAR M.D. Performed By: #### B MP, CBC #### [address] Glucose [Mass/Vol] 153 mg/dL Normal [facility] Comment on above: Result Comment: [place] om Glucose Reference Range is dependent on time and content of last meal. Glucose of more than 200 mg/dL in a nonstressed, ambulatory subject supports the diagnosis of Diabetes Mellitus. PERFORMED BY: [place] [address] PATHOLOGIST BANKING SERVICES OFFICER OSCAR ESCOBAR M.D. Performed By: #### B MP, CBC #### [address] Lipid Panelon 05-10-2024 Cholesterol [Mass/Vol] 139 mg/dL Low 140-[address] [facility] Comment on above: Result Comment: Chol less than 200 mg/dl low risk Chol 201-239 mg/dl borderline risk Chol 240 mg/dl and greater high risk Performed By: #### B MP, LIPID, CBC #### [address] Cholesterol in HDL [Mass/Vol] 65 mg/dL Normal 23-92 [facility] Comment on above: Result Comment: HDL CHOL ATP-III CLASSIFICATION Cardiovascular Risk HDL > or equal to 60 mg/dL LOW HDL < 40 mg/dL HIGH Performed By: #### B MP, LIPID, CBC #### [address] Cholesterol.total/Chol esterol in HDL [Mass ratio] 2.1 {ratio} Normal <5.0 [facility] Comment on above: Result Comment: PERF ORMED BY: [place] [address] PATHOLOGIST BANKING SERVICES OFFICER OSCAR ESCOBAR M.D. Performed By: #### B MP, LIPID, CBC #### [address] LDL Cholesterol,Calculated 63 mg/dL Normal 0-100 [facility] Comment on above: Result Comment: LDL ATP III CLASSIFICATION LDL less than 100 mg/dL Optimal LDL 100-129 mg/dL Near or above optimal LDL 130-159 mg/dL Borderline high LDL 160-189 mg/dL High LDL greater than 189 mg/dL Very high Performed By: #### B MP, LIPID, CBC #### [address] Triglyceride w/Reflex 57 mg/dL Normal 0-149 [facility] Comment on above: Result Comment: TRIG ATP III CLASSIFICATION TRIG less than 150 mg/dL Normal TRIG 150-199 mg/dL Borderline high TRIG 200-500 mg/dL High TRIG greater than 500 mg/dL Very high Standard traceable to the Center for Disease Conrtrol and Prevention (CDC) test method. Performed By: #### B MP, LIPID, CBC #### [address] VLDL CHOLESTEROL 11 mg/dL Normal [facility] Comment on above: Performed By: #### B MP, LIPID, CBC #### [address] Serum or plasma total choles terol/high density lipoprotein (HDL) cholesterol mass ratOrdered By: Alexa Corona on 05-10-2024 Cholesterol.total/Chol esterol in HDL [Mass ratio] Serum or plasma total cholesterol/high density lipoprotein (HDL) cholesterol mass rat <5.0 [facility] Triglyceride [Mass/volume] i n Serum or PlasmaOrdered By: Alexa Corona on 05-10-2024 Triglyceride [Mass/Vol] Triglyceride [Mass/volume] in Serum or Plasma 0-149 [facility] Comment on above: TRIG ATP III CLASSIF ICATIONTRIG less than 150 mg/dL NormalTRIG 150-199 mg/dL Borderline highTRIG 200-500 mg/dL High TRIG greater than 500 mg/dL Very highStandard traceable to the Center for Disease Conrtrol and Prevention (CDC) test method. Troponin I High Sensitivityo n 05-10-2024 Troponin I High Sensitivity 47 High 0-20 [facility] Comment on above: Result Comment: The Troponin units of report have been changed to meet the Chest Pain Accreditation requirement, element EC5.M1l2. Troponin units are changed from pg/ml to ng/L. Also, the decimal is removed and results are in whole numbers. PERFORMED BY: [place] [address] PATHOLOGIST BANKING SERVICES OFFICER OSCAR ESCOBAR M.D. Performed By: #### B SARA, CBC #### [facility] [address] [place] [address] Troponin I High Sensitivity 46 High 0-20 [facility] Comment on above: Result Comment: The Troponin units of report have been changed to meet the Chest Pain Accreditation requirement, element EC5.M1l2. Troponin units are changed from pg/ml to ng/L. Also, the decimal is removed and results are in whole numbers. PERFORMED BY: [place] [phone] PATHOLOGIST BANKING SERVICES OFFICER OSCAR ESCOBAR M.D. Performed By: #### B SARA, CBC #### [address] Troponin I.cardiac [Mass/vol ume] in Serum or Plasma by Detection limit <= 0.01 ng/Ordered By: Alexa Corona on 05-10-2024 Troponin I.cardiac DL <= 0.01 ng/mL [Mass/Vol] Troponin I.cardiac [Mass/volume] in Serum or Plasma by Detection limit <= 0.01 ng/ High 0-20 [facility] Comment on above: The Troponin units o f report have been changed to meet the Chest Pain Accreditation requirement, element EC5.M1l2. Troponin units are changed from pg/ml to ng/L. Also, the decimal is removed and results are in whole numbers. B-Type Natriuretic Peptideon 05-09-2024 Natriuretic peptide B (Bld) [Mass/Vol] 1940.0 pg/mL High 5-100 [facility] Comment on above: Order Comment: Comme nt add Result Comment: PERF ORMED BY: [place] [address] PATHOLOGIST BANKING SERVICES OFFICER OSCAR ESCOBAR M.D. Performed By: #### B MP, CBC #### [address] ECG 12 lead ECGon 05-09-2024 ECG 12 lead ECG [facility] Main [place] [address] [place] [address] Electrocardiograph Report Signed Patient: Leighton Arciniega MR#: [id number] : 1945 Acct:[id number] Age/Sex: 78 / M ADM Date: 05/09/24 Loc: Room: [address] [place] [address] Type: ADM IN Attending Dr: Alexa Corona MD Ordering Provider: Alexa Corona MD Date of Service: 05/09/24 ECG/ECG 12 lead ECG: abn trop Copies to: Test Reason : Blood Pressure : */* mmHG Vent. Rate : 82 BPM Atrial Rate : 82 BPM P-R Int : * ms QRS Dur : 224 ms QT Int : 502 ms P-R-T Axes : 92 -73 109 degrees QTcB Int : 586 ms Ventricular-paced rhythm Confirmed by John Nettles ([id number]) on 05/10/2024 3:51:11 PM Referred By: Electronically Signed By: John Nettles Transcribed By: MUS Signed By John Nettles MD 05/10/24 1551 Normal [facility] Glucose Poct Glucometerson 0 05-09-2024 Glucose [Mass/Vol] 108 mg/dL Normal [facility] Comment on above: Result Comment: [place] om Glucose Reference Range is dependent on time and content of last meal. Glucose of more than 200 mg/dL in a nonstressed, ambulatory subject supports the diagnosis of Diabetes Mellitus. PERFORMED BY: [place] [address] PATHOLOGIST BANKING SERVICES OFFICER OSCAR ESCOBAR M.D. Performed By: #### G LULS #### Point of Care testing , Magnesiumon 05-09-2024 Magnesium [Mass/Vol] 2.1 mg/dL Normal 1.9-2.7 [facility] Comment on above: Order Comment: Comme nt add Result Comment: PERF ORMED BY: [place] [address] PATHOLOGIST BANKING SERVICES OFFICER OSCAR ESCOBAR M.D. Performed By: #### C UU #### [address] Magnesium [Mass/volume] in S chelo or PlasmaOrdered By: Alexa Corona on 05-09-2024 Magnesium [Mass/Vol] Magnesium [Mass/volume] in Serum or Plasma 1.9-2.7 [facility] Natriuretic peptide B [Mass/ Vol]Ordered By: Alexa Corona on 05-09-2024 Natriuretic peptide B (Bld) [Mass/Vol] BNP ser/plas High 5-100 [facility] Troponin I High Sensitivityo n 05-09-2024 Troponin I High Sensitivity 42 High 0-20 [facility] Comment on above: Result Comment: The Troponin units of report have been changed to meet the Chest Pain Accreditation requirement, element EC5.M1l2. Troponin units are changed from pg/ml to ng/L. Also, the decimal is removed and results are in whole numbers. PERFORMED BY: [place] [address] PATHOLOGIST BANKING SERVICES OFFICER OSCAR ESCOBAR M.D. Performed By: #### C UU #### [address] X-ray reportOrdered By: Noe Pitts on 05-09-2024 Study report [facility] Main [place] [address] [place] [address] XRay Report Signed Patient: Leighton Arciniega MR#: [id number] : 1945 Acct:[id number] Age/Sex: 78 / M ADM Date: 5 Loc: 4P Room: [address] [place] [address] Type: ADM IN Attending Dr: Devan Drake MD Copies to: MD Alexa Ferreira MD~ Ordering Provider: Alexa Corona MD Date of Service: 05/09/24 XR/XR chest 2V*: chf XR chest 2V* 05/09/2024 9:07 PM SIGNS AND SYMPTOMS: Congestive heart failure, shortness of breath PROTOCOL: Frontal and lateral graphs of the chest COMPARISON: 10/15/2005 FINDINGS: The trachea is midline. There is a dual lead pacer device on the left. The heart and mediastinal structures are within normal limits. Patchy airspace opacities are present bilaterally with perihilar vascular prominence possibly relating to pulmonary edema/congestive heart failure. The bony thorax is intact. XR/XR chest 2V* IMPRESSION: Patchy airspace opacities are present bilaterally with perihilar vascular prominence possibly relating to pulmonary edema/congestive heart failure. Superimposed infectious infiltrates are not excluded. Impression dictated by: Noe Pitts M.D.05/09/2024 10:26 PM Dictation Location: [place] [address] Transcribed By: [facility] 05/09/242225 Dictated By: Noe Pitts II, MD 05/09/242223 Signed By: 05/09/242225 [facility] Work Phone: XR chest 2V*on 05-09-2024 XR chest 2V* [facility] Main [place] [address] [place] [address] XRay Report Signed Patient: Leighton Arciniega MR#: [id number] : 1945 Acct:[id number] Age/Sex: 78 / M ADM Date: 05/09/24 Loc: 4 Room: [address] [place] [address] Type: ADM IN Attending Dr: Devan Drake MD Copies to: MD Alexa Ferreira MD Ordering Provider: Alexa Corona MD Date of Service: 05/09/24 XR/XR chest 2V*: chf XR chest 2V* 05/09/2024 9:07 PM SIGNS AND SYMPTOMS: Congestive heart failure, shortness of breath PROTOCOL: Frontal and lateral graphs of the chest COMPARISON: 10/15/2005 FINDINGS: The trachea is midline. There is a dual lead pacer device on the left. The heart and mediastinal structures are within normal limits. Patchy airspace opacities are present bilaterally with perihilar vascular prominence possibly relating to pulmonary edema/congestive heart failure. The bony thorax is intact. XR/XR chest 2V* IMPRESSION: Patchy airspace opacities are present bilaterally with perihilar vascular prominence possibly relating to pulmonary edema/congestive heart failure. Superimposed infectious infiltrates are not excluded. Impression dictated by: Noe Pitts M.D.05/09/2024 10:26 PM Dictation Location: [facility]- Transcribed By: [facility] 05/09/242225 Dictated By: Noe Pitts II, MD 05/09/242223 Signed By: 05/09/242225 Normal [facility] Ambulatory Visit Summaryon 0 04-26-2024 Ambulatory Visit [...] Mica Car MD Where: [facility] [address] [place] [address] 2024 11:00 AM EDT With: Where: [facility] You Need to Schedule the Following Appointments Follow Up with Josep SANDHU, Mica Johns, URL, URO When: Where: Medications What How Much When Instructions New finasteride (finasteride 5 mg Tab) 1 Tablets By Mouth Every day Refills: 11 Pickup at [facility] #[id number] Unchanged terazosin (terazosin 10 mg Cap) 1 [...] Duration: 3 (more content not included)... Normal [facility] Urology Office/Clinic Noteon 04-26-2024 Urology Office/Clinic [...] unspecified) Pt states he was admitted at [facility] x 4 days due to PNA, Gomez removed and discharged 04/08/24. Pt states he presented back to [facility] ER due to UR. Gomez placed, [...] scan, ~ 80 g) S/p Rezum by [facility] 02/14/24 - 9 treatments, Rt side [...] further bleeding since then. Pt went to [place] ER 02/26/24 d/t persistent dysuria. Admitted for 3 days. Received IV abx. Dc'd on Cipro x 10d and Levsin. Urine and blood cx both came back neg. [facility] ER 04/08/24 U.Cx was negative. Pt had an infection at the time of him being admitted in the hospital, is currently on abx. Advised pt to continue to abx that was given at the time of the ER visit. Started on Levaquin 500mg qd x3 wks 04/12/24. -Complete ATB course -See #3 5. 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 Elevated risk of periop complications. Follow-up With When Contact Information Josep SANDHU, Mica Johns, URL, URO Additional Instructions: Cysto 05/18/24 Patient Education Indwelling Urinary Catheter Insertion ICarleen, personally scribed for Dr. Car on 04/26/2024 [...] DM (diabetes (more content not included)... Normal [facility] Comment on above: Result Comment: Elec [...] AM EST With: Where: [facility] [address] [place] [address] [place] [address]- Wednesday 1:00 PM EST With: Mica Car MD Where: [facility] [address] [address]- 2024 11:00 AM EDT With: Where: [facility] You Need to Schedule the Following Appointments Follow Up with Josep SANDHU, Mica Johns, URL, URO When: In 1 month Comments: w/PVR Where: Medications What How Much When Instructions New levofloxacin (Levaquin 500 mg Tab) 1 Tablets By Mouth Every 24 hours Duration: 3 Weeks Pickup at [facility] #[id number] Unchanged acetaminophen (Tylenol Extra Strength 500 mg [...] 3 time (more content not included)... Normal [facility] Urology Office/Clinic Noteon 04-12-2024 Urology Office/Clinic Note Urology Office/Clinic Note Chief Complaint 1 mth f/u HPI Staff 78yr old male pt here for 1mo f/u with PVR. S/p Cystoscopy, TRUS 01/27/2024, Rezume done on 02/14/24 w/ Dr. Car. Previous Dx: uti, BPH with urinary obstruction, anticoagulated *terazosin 10 mg qd, sildenafil 100mg PRN pt has Gomez. Pt states he was in [facility] for 4 days for pneumonia, Wednesday he was released and Gomez was taken out. Pt then states he could not urinate so he went back to [facility] and they placed the Gomez. History [...] not urinate so he went back to [facility] and they placed the Gomez, PVR [...] further bleeding since then. Pt went to [place] ER 02/26/24 d/t persistent dysuria. Admitted for 3 days. Received IV abx. Dc'd on Cipro x 10d and Levsin. Urine and blood cx both came back neg. [facility] ER 04/08/24 U.Cx was negative. Pt [...] be stoppe (more content not included)... Normal [facility] Comment on above: Result Comment: Elec tronically Signed By: Mica Car MD\.br\Date and Time Signed: 04/12/24 12:07 EST\.br\Electronically Co-Signed By: Kavita Mukherjee\.br\Date and Time Co-Signed: 04/12/24 11:48 EST Urine Cultureon 03-28-2024 Bacteria identified Cx Nom (U) No Growth 2 Days PERFORMED BY: [place] [address] PATHOLOGIST BANKING SERVICES OFFICER OSCAR ESCOBAR M.D. Normal [facility] Comment on above: Performed By: #### C UU #### [address] Urine cultureOrdered By: Derek Vasquez on 03-28-2024 Bacteria identified Cx Nom (U) Urine culture [facility] C Urineon 03-26-2024 Bacteria identified Cx Nom [...] Locations R1: This test was performed at: [employer] [facility], [address] [place] [address], [id number]- , , [facility] Comment on above: Performed By: #### 2 [id number] #### [facility] [address] [place] [address] Main OR Preoperative Recordo n 03-20-2024 Main OR Preoperative Record Main OR Preoperative Record Holding Area Document Type FTURO Summary Primary Physician: Mica Car MD Finalized Date/Time: 03/20/24 16:29:34 Pt. Name: LEIGHTON ARCINIEGA /Sex: 1945 Male Med Rec #: [id number] Physician: Mica Car MD Financial #: [id number] Pt. Type: O Room/Bed: / Admit/Disch: 12/27/23 [...] Complaints of Pain: No Skin Integrity Intact, [place], Warm, & Dry Vitals - EU Blood Pressure 122/75 Pulse 81 bpm Respirations 18 br/min SPO2 96 % Additional None RN Reviewed Yes Specimens Collected Last Modified By: Ankita Gray RN 12/27/23 11:25:48 Finalized By: MICHELLE Marks RN, Ruthann Document Signatures Signed By: Latha David LPN 12/27/23 11:01 Latha David LPN 12/27/23 11:02 MICHELLE Marks RN, Ruthann 03/20/24 16:29 Normal [facility] Urine Cultureon 03-11-2024 Bacteria identified Cx Nom (U) ORGANISM: Prudence glabrata (O:CANGLA) [place] Count 75,000 PERFORMED BY: [place] [address] PATHOLOGIST BANKING SERVICES OFFICER OSCAR ESCOBAR M.D. Normal [facility] Comment on above: Performed By: #### C UU #### [address] Urine cultureOrdered By: Derek Vasquez on 03-11-2024 Bacteria identified Cx Nom (U) Abnormal [facility] Urology Office/Clinic Noteon 03-02-2024 Urology [...] that he had 3 day stay at [facility] on 02/26/24 for severe UTI & bladder [...] further bleeding since then. Pt went to [place] ER 02/26/24 d/t persistent dysuria. Admitted for [...] 124ml Told him to continue Alfuzosin. Ordered: [id number] Measure Post Void residual urine and/or bladder [...] Urnls Dip Stick Auto w/o Microscopy POC 90119 3. 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 Follow-up [...] Hypercholesteremia Inco (more content not included)... Normal [facility] Comment on above: Result Comment: Elec tronically Signed By: NATA AT PA-C.br\Date and Time Signed: 03/02/24 17:13 EST\.br\Electronically Co-Signed By: Martir Shea\Date and Time Co-Signed: 03/02/24 13:38 EST ECG 12 Leadon 03-01-2024 AV paced rhythm [facility] Work Phone: URINE CULTUREon 02-19-2024 Bacteria identified Cx Nom (U) CULTURE RESULTS 10-50,000 ORGANISMS/mL NORMAL UROGENITAL ELIN Normal [facility] Comment on above: Performed By: #### 6 30-4 #### [facility] ([id number]) [address] [place] [address], [address] [place] [address] URN MACROSCOPIC NURon 2023 BILIRUBIN LETHA Negative Normal NEG [facility] Comment on above: Performed By: #### N UM #### [facility] ([id number]) [address] [place] [address] BLOOD/HGB LETHA Large Abnormal NEG [facility] Comment on above: Performed By: #### N UM #### [facility] ([id number]) [address] [place] [address] GLUCOSE LETHA >=1000 Abnormal NEG [facility] Comment on above: Performed By: #### N UM #### [facility] ([id number]) [address] [place] [address] KETONES LETHA Negative Normal NEG [facility] Comment on above: Performed By: #### N UM #### [facility] ([id number]) [address] [place] [address] LEUKOCYTE ESTERASE LETHA Small Abnormal NEG Pr [facility] Comment on above: Performed By: #### N UM #### [facility] ([id number]) [address] [place] [address] NITRITE LETHA Negative Normal NEG [facility] Comment on above: Performed By: #### N UM #### [facility] ([id number]) [address] [place] [address] PH LETHA 6.0 Normal 5.0-8.5 [facility] Comment on above: Performed By: #### N UM #### [facility] ([id number]) [address] [place] [address] PROTEIN LETHA 100 mg/dL Abnormal NEG [facility] Comment on above: Performed By: #### N UM #### [facility] ([id number]) [address] [place] [address] SPECIFIC GRAVITY LETHA 1.015 Normal 1.003-1.035 [facility] Comment on above: Performed By: #### N UM #### [facility] ([id number]) [address] [place] [address] UROBILINOGEN LETHA 0.2 eu/dL Normal <1.1 [facility] Comment on above: Performed By: #### N UM #### [facility] ([id number]) [address] [place] [address] Inpatient Patient Summaryon 02-14-2024 Inpatient Patient Summary Inpatient Patient Summary [place] [id number] Clinical Summary Person Information Name: LEIGHTON ARCINIEGA Age: 78 Years : 1945 Sex: Male PCP: Lori Medina MD Marital Status: Race: White Ethnicity: Non- or Language: British Visit Id: Visit Reason: BPH WITH URINARY OBSTRUCTION Speciality: Acuity: Enc Type: Outpatient Med Service: Surgery Arrival: 02/14/2024 09:35:51 Discharge: Dispo Type: Address: [facility] LINDEN TONEY [address] [place] [address] [id number] Provider Notes: Diagnosis: BPH with obstruction/lower urinary [...] day as needed for pain. acetaminophen-hydroc odone (Bayard 325 mg-5 mg oral tablet) 1 Tablets [...] EU - Rezum Discharge Instructions (CUSTOM) Normal [facility] Main [place] Intraoperative Recor don 02-14-2024 Main OR Intraoperative Record Main OR Intraoperative Record IntraOp Document Type FTURO Summary Primary Physician: Mica Car MD Finalized Date/Time: 02/14/24 12:08:58 Pt. Name: LEIGHTON ARCINIEGA/Sex: 1945 Male Med Rec #: [id number] Physician: Mica Car MD Financial #: [id number] Pt. Type: O Room/Bed: / Admit/Disch: 02/14/24 [...] 3 Case Attendee Josep SANDHU, Jocy Perea DUCT LAYER, Aura Zambrano Role Performed Surgeon - Primary Heavy Duty Diesel Mechanic - Primary Scrub - Primary Time In [...] REZUM LOCAL Primary Procedure Yes Primary Surgeon Josep SANDHU, Mica Johns Start 02/14/24 11:51:00 Stop 02/14/24 11:58:00 Anesthesia [...] Corral 02/14/24 12:08 Jocy Corral 02/14/24 12:08 [facility] Main OR Preoperative Recordo n 02-14-2024 Main OR Preoperative Record Main OR Preoperative Record Holding Area Document Type FTURO Summary Primary Physician: Mica Car MD Finalized Date/Time: 02/14/24 11:48:27 Pt. Name: LEIGHTON ARCINIEGA /Sex: 1945 Male Med Rec #: [id number] Physician: Mica Car MD Financial #: [id number] Pt. Type: O Room/Bed: / Admit/Disch: 02/14/24 [...] Complaints of Pain: No Skin Integrity Intact, [place], Warm, & Dry Vitals - EU Blood Pressure 152/74 Pulse 61 bpm Respirations 18 br/min SPO2 97 % Additional None RN Reviewed Yes Specimens Collected Last Modified By: Jocy Corral 02/14/24 11:48:23 Finalized By: Jocy Corral Document Signatures Signed By: Latha David LPN 02/14/24 11:05 Jocy Corral 02/14/24 11:48 Jocy Corral 02/14/24 11:48 Normal [facility] Operative Reporton 4 Operative Report Operative Report [...] clearer. Follow-up in 1 month PVR.. Normal [facility] Comment on above: Result Comment: Elec tronically Signed By: Josep SANDHU, Mica Johns\.br\Date and Time Signed: 02/14/24 12:03 EST Outpatient Surgery Discharge Instructionon 02-14-2024 Outpatient Surgery Discharge Instruction Outpatient Surgery Discharge Instruction [address] [address] Patient Discharge Instructions PERSON INFORMATION Name: LEIGHTON [...] While there (more content not included)... Normal [facility] Ambulatory Visit Summaryon 1 04-01-2023 Ambulatory [...] Strength 500 mg oral tablet) acetaminophen-hydroc odone (Bayard 325 mg-5 mg oral tablet) allopurinol (allopurinol [...] if questions or concerns Unchanged acetaminophen-hydroc odone (Bayard 325 mg-5 mg oral tablet) 1 Tablets [...] omeprazole (omep (more content not included)... Normal [facility] Urology Office/Clinic Noteon 01-31-2024 Urology Office/Clinic Note Urology Office/Clinic Note Chief Complaint [facility] follow up HPI Staff 78 year old male patient presents today for a [facility] ER follow up 01/23/24. Pt [...] with voice recognition artificial intelligence software, specifically Nginx, [employer] and or Retrace. Substitutions may have occurred due to the [...] (N52.9: Male erectile dysfunction, unspecified) Hx of [place] in 2002. Has pacemaker in place. Denies [...] in medic (more content not included)... Normal [facility] Comment on above: Result Comment: Elec tronically Signed By: MICHAEL Sr APRN, Anna Herrera\.br\Date and Time Signed: 01/31/24 16:26 EST URINE CULTUREon 01-24-2024 Bacteria identified Cx Nom (U) CULTURE RESULTS NO GROWTH AT <1000 CFU/mL Normal [facility] Comment on above: Performed By: #### 6 30-4 #### [facility] ([id number]) [address] [facility], [address] [place] [address] URN MACROSCOPIC NURon 2023 BILIRUBIN LETHA Negative Normal NEG [facility] Comment on above: Performed By: #### N UM #### [facility] ([id number]) [address] [place] [address], [place] [address] BLOOD/HGB LETHA Trace Abnormal NEG [facility] Comment on above: Performed By: #### N UM #### [facility] ([id number]) [address] [place] [address], [place] [address] GLUCOSE LETHA >=1000 Abnormal NEG [facility] Comment on above: Performed By: #### N UM #### [facility] ([id number]) [address] [place] [address] [place] [address] KETONES LETHA Negative Normal NEG [facility] Comment on above: Performed By: #### N UM #### [facility] ([id number]) [address] [place] [address] [place] [address] LEUKOCYTE ESTERASE LETHA Large Abnormal NEG Pr [facility] Comment on above: Performed By: #### N UM #### [facility] ([id number]) [address] [place] [address] [place] [address] NITRITE LETHA Negative Normal NEG [facility] Comment on above: Performed By: #### N UM #### [facility] ([id number]) [address] [place] [address] [place] [address] PH LETHA 6.0 Normal 5.0-8.5 [facility] Comment on above: Performed By: #### N UM #### [facility] ([id number]) [address] [place] [address] [place] [address] PROTEIN LETHA 100 mg/dL Abnormal NEG [facility] Comment on above: Performed By: #### N UM #### [facility] ([id number]) [address] [place] [address] [place] [address] SPECIFIC GRAVITY LETHA 1.015 Normal 1.003-1.035 [facility] Comment on above: Performed By: #### N UM #### [facility] ([id number]) [address] [place] [address], [place] [address] UROBILINOGEN LETHA 0.2 eu/dL Normal <1.1 [facility] Comment on above: Performed By: #### N UM #### [facility] ([id number]) [address] [place] [address], [place] [address] Inpatient Patient Summaryon 12-27-2023 Inpatient Patient Summary Inpatient Patient Summary [address] [address] Clinical Summary Person Information Name: LEIGHTON ARCINIEGA Age: 78 Years : 1945 Sex: Male PCP: Lori Medina MD Marital Status: Race: White Ethnicity: Non- or Language: British Visit Id: Visit Reason: BPH WITH URINARY OBSTRUCTION Speciality: Acuity: Enc Type: Outpatient Med Service: Surgery Arrival: 12/27/2023 09:33:05 Discharge: Dispo Type: Address: [address] [place] [address] [address] [place] [id number] Provider Notes: Diagnosis: Anticoagulated; Other obstructive and [...] day as needed for pain. acetaminophen-hydroc odone (Bayard 325 mg-5 mg oral tablet) 1 Tablets [...] Office to schedule Rezum Type Location Start Finish State NCV Pacemaker (FT) FT.CARDIO 06/01/2024 11:00 AM 06/01/2024 11:15 AM Confirmed Patient Education Information: EU - Cystoscopy Discharge Instructions (CUSTOM) [facility] Main OR Intraoperative Recor don 12-27-2023 Main OR Intraoperative Record Main OR Intraoperative Record IntraOp Document Type FTURO Summary Primary Physician: Mica Car MD Finalized Date/Time: 12/27/23 11:42:38 Pt. Name: LEIGHTON ARCINIEGA/Sex: 1945 Male Med Rec #: [id number] Physician: Mica Car MD Financial #: [id number] Pt. Type: O Room/Bed: / Admit/Disch: 12/27/23 [...] Micky Vargas Role Performed Surgeon - Primary Heavy Duty Diesel Mechanic - Primary Scrub - Primary Time In [...] Out Mica Car MD, Verified (If Participants Gray Ankita GODINEZ Applicable) Hernan Márquez Kendall R Time Out [...] By: Ankita Gray RN 12/27/23 11:42 Normal [facility] Operative Reporton Operative Report Operative Report Patient: LEIGHTON ARCINIEGA Age: 78 years Sex: Male : 1945 Associated Diagnoses: None Author: Mica Car MD Procedure Operative Information Details: Date/ Time: 12/27/2023 12:10:00. Pre-Op Dx: BPH w/ LUTS - N40.1. Post-Op Dx: Feeling of incomplete bladder emptying (SDQ41-EM R39.14, Working, Medical), Anticoagulated ([id number] Z79.01, Discharge, Medical), Same. Anesthesia Type: Local. [...] and Valium prior to procedure. Will need double bottom driver. -Will need blood thinners held prior to procedure. Elevated risk of bleeding discussed. -Patient did better on terazosin. Will DC tamsulosin and restart terazosin 10 mg daily. [facility] [place] Comment on above: Result Comment: Elec tronically Signed By: Josep SANDHU, Mica Benson.br\Date and Time Signed: 12/27/23 12:14 EDT Outpatient Surgery Discharge Instructionon 12-27-2023 Outpatient Surgery Discharge Instruction Outpatient Surgery Discharge Instruction [place] [id number] Patient Discharge Instructions PERSON INFORMATION Name: LEIGHTON [...] When: Mica Car Comments: Office to schedule [facility] Type Location Start Finish State NCV [...] to serve you. Thank you for choosing [facility] Ambulatory Visit Summaryon 0 11-12-2023 Ambulatory [...] Strength 500 mg oral tablet) acetaminophen-hydroc odone (Bayard 325 mg-5 mg oral tablet) allopurinol (allopurinol [...] if questions or concerns Unchanged acetaminophen-hydroc odone (Bayard 325 mg-5 mg oral tablet) 1 Tablets [...] Mouth E (more content not included)... [facility] Urology Office/Clinic Noteon 11-12-2023 Urology Office/Clinic Note Urology Office/Clinic Note HPI Staff 6 mos. Prior OV: started Viagra 100 mg prn. Previous Dx: BPH with urinary obstruction, incomplete bladder emptying, ED, screening PSA. S/p Reestefanim by Dr. Vargas 09/16/16. *Tamsulosin 0.4 mg [...] (N52.9: Male erectile dysfunction, unspecified) Hx of MT in 2002. Has pacemaker in place. Denies [...] antigen) Seborr (more content not included)... [facility] Comment on above: Result Comment: Elec tronically Signed By: Mica Car MD\.br\Date and Time Signed: 11/12/23 16:43 EDT\.br\Electronically Co-Signed By: Maria Luz Mejia\.br\Date and Time Co-Signed: 11/12/23 16:14 EDT PTH [place] 10-15-2023 Parathyrin.intact [Mass/Vol] 49 pg/mL Invalid Interpretation Code 15-65 [facility] Comment on above: Result Comment: Perf ormed at: [facility] [address] [id number] PhD Carlos Singh Performed By: #### 1 [id number] #### [facility] [address] [place] [address] ED Clinical Summaryon 2023 ED Clinical Summary ED Clinical Summary [address] [address] ED Clinical Summary Person Information Name: LEIGHTON ARCINIEGA [place] Age: 77 Years : 1945 Sex: Male Language: British PCP: Lori Medina MD Marital Status: Visit [...] 10/14/2023 13:18:55 10/14/2023 13:18:55 ADDRESS: [place]ie TONE[place] [address] [place] [phone] PHYS DOC NOTES: MEDICAL INFORMATION: Prescriptions Given: New Medications [id number], [address] [place], [place] [id number], [phone] acetaminophen-hydroc odone (Bayard 325 mg-5 mg oral tablet) 1 Tablets [...] EDUCATION INFORMATION: Instructions: Acute Knee Pain, Adult, Spsk-wd-Idzs Follow up: With: Address: When: Andera Espan[place] [address] [place] [address] Business (1) In 3 days 10/17/2023 With: Address: When: Call to schedule a follow-up appointment with your orthopedic surgeon. Use the Bayard as needed for pain along with icing. . If you are unable to get in with your orthopedic surgeon, I have provided a referral for another one. In 3 days 10/17/2023 With: Address: When: Lori Medina [facility] [place] [address] Business (1) In 3 days DIAGNOSIS: Posterior left knee pain [facility] ED Note-Physicianon 10-14-19 ED Note-Physician ED [...] he previously saw an orthopedic surgeon in [facility] for arthritis in which he will follow-up for further management of care. Patient is on Eliquis therefore I cannot prescribe him naproxen or any form of NSAID. Due to his age I did not feel a muscle relaxer was appropriate either. Based on this he is being prescribed 4 doses of Bayard. He was educated on appropriate use of [...] q4hr for pain, 4 tab(s), Refill(s) 0, [facility], 177, cm, 10/14/23 11:44:00 EDT, Height/Length Dosing, 104.8, kg, 10/14/23 11:44:00 EDT, Weight Dosing Disposition Plan Patient Discharge Condition stable Discharge Disposition home Discharge Prescription List Prescriptions Bayard 325 mg-5 mg oral tablet, 1 tab(s), Oral, q4hr, PRN Follow-up With When Contact Information Andrea Maddoxfermín In 3 days 10/17/2023 EDT [address] [place] [address]- Business (1) Additional Instructions: Call to schedule a follow-up appointment with your orthopedic surgeon. Use the Bayard as needed for pain along with icing. . If you are unable to get in with your orthopedic surgeon, I have provided a referral for another one. In 3 days 10/17/2023 EDT Additional Instructions: Lori Carol In 3 days [address] [facility] [place] [address]- Business (1) Additional Instructions: Patient Education Acute Knee Pain, Adult, Nvhj-zn-Vusr Attestation Patient seen and evaluated by the physician cafe assistant. Attending physician was present in the emergency department and supervised care. This visit was performed by both the physician and an APC. I performed all aspects of the MDM as documented. This report was transcribed using voice recognition software. Every effort was made to ensure accuracy, however, inadvertently computerized mold car pusher mistakes may be present. Appropriate healthcare PPE was used in evaluating this patient. The patient was placed in a mask. The healthcare provider was wearing mask, gloves, and utiliz (more content not included)... [facility] Comment on above: Result Comment: Elec tronically Signed By: Vini Quinteros DO\.br\Date and Time Signed: 10/14/23 16:09 EDT\.br\Electronically Co-Signed By: Nayla William PA-C\.br\Date and Time Co-Signed: 10/14/23 13:46 EDT ED Patient Summaryon 024 ED Patient Summary ED Patient Summary [facility] [address] [place], [place] [address] Patient Discharge Instructions Person Information Name: LEIGHTON ARCINIEGA Age: 77 Years Arrival Date: 10/14/2023 11:36:13 Discharge Diagnosis: Posterior left knee pain Primary Care Physician: Lori Medina MD Provider Information Primary Provider: Vini Quinteros DO Advanced Laminating Machine Offbearer:Nayla William PA-C The exam and treatment you received in the Emergency Department were for an urgent problem and are not intended as complete care. It is important that you follow up with a doctor, nurse practitioner, or physician?s cafe assistant for ongoing care. If your symptoms [...] Follow-up Instructions: With: Address: When: Andrea Espana [address] [place], [place] [id number] Business (1) In 3 days 10/17/2023 With: Address: When: Call to schedule a follow-up appointment with your orthopedic surgeon. Use the Bayard as needed for pain along with icing. . If you are unable to get in with your orthopedic surgeon, I have provided a referral for another one. In 3 days 10/17/2023 With: Address: When: Lori Medina [address] [facility] [place] [address] Business (1) In 3 days In the event that this physician does not participate in your insurance network, please consult with your insurance company to find a nearby participating provider. Patient Education Materials: Acute Knee Pain, Adult, Csng-by-Otxy A MESSAGE TO ALL PATIENTS REGARDING OPIOIDS PRESCRIPTION OPIOIDS: WHAT YOU NEED TO KNOW Prescription opioids can be used to help relieve qiqplyuy-jo-dncqod pain and are often prescribed following a [...] or yo (more content not included)... [facility] XR Knee Complete 4+ Views Le [...] mGy = na DAP = na [facility] Screenson 06-17-2023 Screens [id number] #1.00TIFF [facility] Screens [id number] #1.00TIFF [facility] Ambulatory Visit Summaryon 0 06-16-2023 Ambulatory [...] Mica Car MD Where: [facility] Patient Educationon 06-16-19 24 Patient Education [...] these instructions at home: Medicines ? Take iyqs-dzk-kajdvur and prescription medicines only as told by [...] include cig (more content not included)... [facility] Urology Office/Clinic Noteon 06-16-2023 Urology Office/Clinic [...] (N52.9: Male erectile dysfunction, unspecified) Hx of MT in 2002. Has pacemaker in place. Denies [...] With When Contact Information Josep SANDHU, Mica oJhns, URL, [facility] [address], [place] [phone] Additional Instructions: Has f/u already scheduled 11/12/23 [...] Amputation, Tonsillectomy. (more content not included)... [facility] Comment on above: Result Comment: Elec tronically Signed By: NATA TA PA-C\.br\Date and Time Signed: 06/16/23 10:56 EDT\.br\Electronically Co-Signed By: Kriss Frankel\.br\Date and Time Co-Signed: 06/16/23 10:48 EDT [place] 05-10-2023 Screens [id number] #1.00TIFF [facility] Screens [id number] #1.00TIFF [facility] Ambulatory Visit Summaryon 0 05-07-2023 [...] NATA TA PA-C Where: [facility] Normal [address] [place] [address]- \.br\ You Need to Schedule the Following Appointments\.br \ Follow Up with NATA TA PA-C, URL When: \.br\ Comments:\.br\ 1 mos w/ PVR \.br\ Where:\.br\ [address]\.br\ [place] [address]\.br\ [phone]\.br\ Medications\.br\ What How Much When Instructions\.br \ New tadalafil (tadalafil 10 mg Tab) 1 Tablets By Mouth As Directed as needed for for erectile dysfunction Refills: 3 Take one tab 1 hour prior to sexual activity. Do not exceed 20mg in 48hrs. Pickup at [facility] #[facility]\.br\ New tamsulosin (tamsulosin 0.4 mg Cap) 1 Capsules By Mouth Once a day (in the evening) Refills: 11 Pickup at [facility] #[id number]\.br\ Unchanged acetaminophen (Tylenol Extra Strength 500 mg [...] or concerns \.br\ Pharmacy Information\.br\ [id number]: [address] [place], [place] [phone]\.br\ Allergies\.br\ Monopril (Dry cough)\.br\ Strawberries (rash)\.br\ Tomatoes (rash)\.br\ metoprolol (Hypotension)\.b r\ Problems\.br\ Ongoing - Any problem that you are currently receiving treatment for.\.br\ Anticoagulated\. br\ Arthritis\.br\ Aspirin long-term use\.br\ BPH with urinary obstruction\.br\ CKD (chronic kidney disease) stage 3, GFR 30-59 ml/min\.br\ Diabetes\.br\ ED (erectile dysfunction)\.br \ Emphysema/COPD\. br\ Epidermal cyst\.br\ Extreme obesity\.br\ Former smoker\.br\ Heart disease\.br\ Hx of migraine headaches\.br\ Hypercholesterem ia\.br\ Incomplete bladder emptying\.br\ Kidney stones\.br\ Myocardial infarct\.br\ Nocturia\.br\ Prostate hyperplasia with urinary obstruction\.br\ Seborrheic keratoses\.br\ SSS (sick sinus syndrome)\.br\ Urinary urgency\.br\ Historical - Any problem that you are no longer receiving treatment for.\.br\ Acute kidney failure\.br\ Asthma\.br\ CHF (congestive heart failure)\.br\ DM (diabetes mellitus), type 2\.br\ GERD (gastroesophagea l reflux disease)\.br\ HTN (hypertension)\. br\ OA (osteoarthritis) \.br\ Obesity\.br\ Psoriasis\.br\ Patient Survey\.br\ You may receive [...] enough hardness of the erection to allow penetration.\.br \ ? \.br\ Loss of erection before sex is finished.\.br\ What are the causes?\.br\ This condition may be caused by:\.br\ ? \.br\ Physical causes, such as:\.br\ ? \.br\ Artery problems. This may include heart disease, high blood pressure, atherosclerosis, and diabetes.\.br\ ? \.br\ Hormonal problems, such as low testosterone.\.b r\ ? \.br\ Obesity.\.br\ ? \.br\ Nerve problems. This may include back or pelvic injuries, multiple sclerosis, Parkinson's disease, spinal cord injury, and stroke.\.br\ ? \.br\ Certain medicines, such as:\.br\ ? \.br\ Pain relievers.\.br\ ? \.br\ Antidepressants. \.br\ ? \.br\ Blood pressure medicines and water pills (diuretics).\.br \ ? \.br\ Cancer medicines.\.br\ ? \.br\ Antihistamines.\ .br\ ? \.br\ Muscle relaxants.\.br\ ? \.br\ Lifestyle factors, such as:\.br\ ? \.br\ Use of drugs such as marijuana, cocaine, or opioids.\.br\ ? \.br\ Excessive use of alcohol.\.br\ ? \.br\ Smoking.\.br\ ? \.br\ Lack of physical activity or exercise.\.br\ ? \.br\ Psychological causes, such as:\.br\ ? \.br\ Anxiety or stress.\.br\ ? \.br\ Sadness or depression.\.br\ ? \.br\ Exhaustion.\.br\ ? \.br\ Fear about sexual performance.\.br \ ? \.br\ Guilt.\.br\ What are the signs or symptoms?\.br\ Symptoms of this condition include:\.br\ ? \ [facility] Ambulatory Visit Summary LEIGHTON ARCINIEGA :1945 [...] Comments: 6 mos (new med) Where: [address], [place] [phone] Medications What How Much When Instructions Unchanged [...] Every da (more content not included)... [facility] Patient Educationon 05-07-19 Patient Education Urology [...] these instructions at home: Medicines ? Take yner-ohi-rjwctko and prescription medicines only as told by [...] include cig (more content not included)... 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 AMANDA [...] Information Josep SANDHU, Mica Johns, URL, [facility] [address], [place] [phone] Additional Instructions: 1 mos w/ PVR Patient Education Erectile Dysfunction I, Kriss Frankel, personally scribed for Dr. Car on 05/07/2023 15:06:02. . Documentation recorded by the scribe, Kriss Frankel, accurately reflects the services(s) I performed and decisions made by me. Authenticated by Dr. Car on 05/07/2023 16:05:51. Problem List/Past Medical History Ongoing Anticoagulated Arthritis Aspirin marshall (more content not included)... [facility] Comment on above: Result Comment: Elec [...] Weight Tips; Status:Complete - Retrospective Authorization; Done: [id number] Some eating tips that can help you lose weight.; Status:Complete - Retrospective Authorization; Done: [id number] Essential hypertension Renew: Carvedilol 6.25 MG Oral Tablet; Take 1 tablet twice daily Hyperlipidemia Renew: Simvastatin 20 MG Oral Tablet; TAKE 0.5 TABLET Bedtime SocHx: Former smoker Tobacco Use Screening; Status:Complete; Done: [id number] Patient Instructions Please bring all medicines, vitamins, [...] sheet. 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 [facility] Tobacco Screening.on 023 Adult depression screening assessment No [facility] [employer] YardCorinne lk 600 DO Work Phone: Fall risk assessment b) One or more fall s in the last year [facility] 600 DO Work Phone: Tobacco use status [facility] b) No [facility] lk 600 DO Work Phone: CBC AUTO DIFFon 05-28-2022 BASO # 0.0 103/ul Normal 0.0-0.1 [facility] Comment on above: Performed By: #### C BC #### [facility] [address] [place] [address] Dr. Susie Hale Basophils/100 WBC (Bld) 0.5 % Normal 0.2-2.0 [facility] Comment on above: Performed By: #### C BC #### [facility] [address] [place] [address] Dr. Susie Hale EO # 0.1 103/ul Normal 0.0-0.7 [facility] Comment on above: Performed By: #### C BC #### [facility] [address] [place] [address] Dr. Susie Hale Eosinophils/100 WBC (Bld) 1.8 % Normal 0.9-7.0 [facility] Comment on above: Performed By: #### C BC #### [facility] [address] [place] [address] Dr. Susie Hale Erythrocyte distribution width (RBC) [Ratio] 13.0 % Normal 11.0-15.0 [facility] Comment on above: Performed By: #### C BC #### [facility] [address] [place] [address] Dr. Susie Hale Hematocrit (Bld) [Volume fraction] 35.0 % Critically low 42.0-54.0 [facility] Comment on above: Performed By: #### C BC #### [facility] [address] [place] [address] [address] Susie Hale Hemoglobin (Bld) [Mass/Vol] 12.2 g/dL Critically low 14.0-18.0 [facility] Comment on above: Performed By: #### C BC #### [facility] [address] [place] [address] [address] Susie Hale IG # 0.05 10e3/ul Critically high 0.00-0.03 [facility] Comment on above: Performed By: #### C BC #### [facility] [address] [place] [address] Dr. Susie Hale IG % 0.8 % Critically high 0.0-0.5 [facility] Comment on above: Performed By: #### C BC #### [facility] [address] [place] [address] Dr. Susie Hale LYMPH # 1.9 103/ul Normal 1.2-3.8 [facility] Comment on above: Performed By: #### C BC #### [facility] [address] [place] [address] Dr. Susie Hale Lymphocytes/100 WBC (Bld) 28.7 % Normal 20.5-60.0 [facility] Comment on above: Performed By: #### C BC #### [facility] [address] [place] [address] Dr. Susie Hale MANUAL DIFF REQ NO Normal [facility] Comment on above: Performed By: #### C BC #### [facility] [address] [place] [address] Dr. Susie Hale MCH (RBC) [Entitic mass] 32.1 pg Normal 25.9-34.0 [facility] Comment on above: Performed By: #### C BC #### [facility] [address] [place] [address] Dr. Susie Hale MCHC (RBC) [Mass/Vol] 34.9 g/dL Normal 29.9-35.2 [facility] Comment on above: Performed By: #### C BC #### [facility] [address] [address] [address] Susie Hale MCV (RBC) [Entitic vol] 92.1 fL Normal 80.0-94.0 [facility] Comment on above: Performed By: #### C BC #### [facility] [address] [address] [address] Susie Hale MONO # 0.7 103/ul Normal 0.3-0.8 [facility] Comment on above: Performed By: #### C BC #### [facility] [address] [place] [address] [address] Susie Hale Monocytes/100 WBC (Bld) 10.9 % Normal 1.7-12.0 [facility] Comment on above: Performed By: #### C BC #### [facility] [address] [place] [address] Dr. Susie Hale NEUT # 3.7 103/ul Normal 1.4-6.5 [facility] Comment on above: Performed By: #### C BC #### [facility] [address] [place] [address] Dr. Susie Hale Neutrophils/100 WBC (Bld) 57.3 % Normal 43.0-75.0 [facility] Comment on above: Performed By: #### C BC #### [facility] [address] [place] [address] Dr. Susie Hale Platelet mean volume (Bld) [Entitic vol] 8.5 fL Critically low 9.5-13.5 [facility] Comment on above: Performed By: #### C BC #### [facility] [address] [place] [address] Dr. Susie Hale PLT 238 103/ul Normal 150-450 [facility] Comment on above: Performed By: #### C BC #### [facility] [address] [place] [address] Dr. Susie Hale RBC 3.80 106/ul Critically low 4.70-6.10 [facility] Comment on above: Performed By: #### C BC #### [facility] [address] [address] [address] Susie Hale WBC 6.5 103/ul Normal 4.0-11.0 [facility] Comment on above: Performed By: #### C BC #### [facility] [address] [place] [address] STROKE HEAD WOon [...] may help better delineate. Electronically authenticated by: SANAZ CANO Date: 2022-05-28 18:17 Normal [facility] PROF 14(COMP METB)on 023 Albumin [Mass/Vol] 3.5 g/dL Normal 3.4-5.0 [facility] Comment on above: Performed By: #### C MP #### [facility] [address] [place] [address] Dr. Susie Hale Albumin/Globulin [Mass ratio] 1.1 {ratio} Normal [facility] Comment on above: Performed By: #### C MP #### [facility] [address] [place] [address] Dr. Susie Hale ALP [Catalytic activity/Vol] 87 U/L Normal 46-116 [facility] Comment on above: Performed By: #### C MP #### [facility] [address] [address] [address] Susie Hale ALT [Catalytic activity/Vol] 16 U/L Normal 16-63 [facility] Comment on above: Performed By: #### C MP #### [facility] [address] [address] [address] Susie Hale Anion gap [Moles/Vol] 10.0 mmol/L Normal [facility] Comment on above: Performed By: #### C MP #### [facility] [address] [address] [address] Susie Hale AST [Catalytic activity/Vol] 14 U/L Critically low 15-37 [facility] Comment on above: Performed By: #### C MP #### [facility] [address] [address] [address] Susie Hale Bilirubin [Mass/Vol] 0.2 mg/dL Normal 0.2-1.0 [facility] Comment on above: Performed By: #### C MP #### [facility] [address] [address] [address] Susie Hale Calcium [Mass/Vol] 8.9 mg/dL Normal 8.5-10.1 [facility] Comment on above: Performed By: #### C MP #### [facility] [address] [address] [address] Susie Hale Chloride [Moles/Vol] 105 mmol/L Normal 98-107 [facility] Comment on above: Performed By: #### C MP #### [facility] [address] [address] [address] Susie Hale CO2 [Moles/Vol] 25.7 mmol/L Normal 21.0-32.0 [facility] Comment on above: Performed By: #### C MP #### [facility] [address] [address] [address] Susie Hale Creatinine [Mass/Vol] 1.87 mg/dL Critically high 0.70-1.30 [facility] Comment on above: Performed By: #### C MP #### [facility] [address] [address] [address] Susie Hale EGFR-AF [place] 43 mL/min/1.73m2 Critically low >=60 [facility] Comment on above: Performed By: #### C MP #### [facility] [address] [address] [address] Susie Hale EGFR-NON AF [place] 35 mL/min/1.73m2 Critically low >=60 [facility] Comment on above: Performed By: #### C MP #### [facility] [address] [address] [address] Susie Hale Globulin (S) [Mass/Vol] 3.2 g/dL Normal [facility] Comment on above: Performed By: #### C MP #### [facility] [address] [address] [address] Susie Hale Glucose [Mass/Vol] 256 mg/dL Critically high 74-106 [facility] Comment on above: Performed By: #### C MP #### [facility] [address] [address] [address] Susie Hale Potassium [Moles/Vol] 3.7 mmol/L Normal 3.5-5.1 [facility] Comment on above: Performed By: #### C MP #### [facility] [address] [address] [address] Susie Hale Protein [Mass/Vol] 6.7 g/dL Normal 6.4-8.2 [facility] Comment on above: Performed By: #### C MP #### [facility] [address] [address] [address] Susie Hale Sodium [Moles/Vol] 137 mmol/L Normal 136-145 [facility] Comment on above: Performed By: #### C MP #### [facility] [address] [address] [address] Susie Hale Urea nitrogen [Mass/Vol] 22.0 mg/dL Critically high 7.0-18.0 [facility] Comment on above: Performed By: #### C MP #### [facility] [address] [place], [place] [address] Dr. Susie Hale Urea nitrogen/Creatinine [Mass ratio] 11.8 mg/mg Normal [facility] Comment on above: Performed By: #### C MP #### [facility] [address] [place], [place] [address] Dr. Susie Hale Office Visit (Cardiology)on 12-16-2021 [...] in adult Healthy Weight Tips; Status:Complete; Done: [id number] Some eating tips that can help you lose weight.; Status:Complete; Done: [id number] Essential hypertension Renew: Carvedilol 6.25 MG Oral Tablet; Take 1 tablet twice daily Hyperlipidemia Renew: Simvastatin 20 MG Oral Tablet; TAKE 0.5 TABLET Bedtime SocHx: Former smoker Tobacco Use Screening; Status:Complete; Done: [id number] Unlinked Stop: Aspirin 325 MG Oral Tablet [...] visit. Device check as directed per [facility] protocol Follow up in 6-9 months [...] skin r (more content not included)... Normal [employer] Tobacco Screening.on 022 Adult depression screening assessment No [facility] [employer] 600 DO Work Phone: Fall risk assessment a) No falls within the last year [facility] 600 DO Work Phone: Tobacco use status CP b) No [facility] 600 DO Work Phone: Tobacco Screening.on 021 Fall risk assessment a) No falls within the last year [facility] [employer] haresh 250 DO Work Phone: Tobacco use status CPHS b) No [facility] [employer] 250 DO Work Phone: Vital Signs Date Time Vital Sign Value Performing Clinician Facility 05-13-2024 14:53-0500 SaO2% (BldA) [Mass fraction] 95 % Lori Medina MD Work Phone: [facility] 05-13-2024 11:55-0500 Diastolic blood pressure 62 mm[Hg] Lori Medina MD Work Phone: [facility] 05-13-2024 11:55-0500 Heart rate 89 /min Lori Medina MD Work Phone: [facility] 05-13-2024 11:55-0500 Inhaled oxygen flow rate 2 L/min Lori Medina MD Work Phone: [facility] 05-13-2024 11:55-0500 Respiratory rate 17 /min Lori Medina MD Work Phone: [facility] 05-13-2024 11:55-0500 Systolic blood pressure 123 mm[Hg] Lori Medina MD Work Phone: [facility] 05-13-2024 08:00-0500 Body temperature 97.6 [degF] Lori Medina MD Work Phone: [facility] 05-13-2024 06:00-0500 Body weight 88 kg Lori Medina MD Work Phone: [facility] 05-11-2024 04:00-0500 Inhaled oxygen concentration 40 % Lori Medina MD Work Phone: [facility] 05-10-2024 15:22-0500 Body height 177.8 cm Lori Medina MD Work Phone: [facility] 03-01-2024 11:12-0500 Body height 177.8 cm Osvaldo Dickinson MD Work Phone: [facility] 03-01-2024 11:12-0500 Body mass index (BMI) [Ratio] 30.13 kg/m2 Osvaldo Dickinson MD Work Phone: [facility] 03-01-2024 11:12-0500 Body weight 95.25 kg Osvaldo Dickinson MD Work Phone: [facility] 03-01-2024 11:12-0500 Diastolic blood pressure 54 mm[Hg] Osvaldo Dickinson MD Work Phone: [facility] 03-01-2024 11:12-0500 Heart rate 71 /min Osvaldo Dickinson MD Work Phone: [facility] 03-01-2024 11:12-0500 Systolic blood pressure 114 mm[Hg] Osvaldo Dickinson MD Work Phone: [facility] 12-14-2023 13:17-0400 Diastolic blood pressure 70 mm[Hg] Dank Robert DO Work Phone: [facility] 12-14-2023 13:17-0400 Heart rate 68 /min Dank Robert DO Work Phone: [facility] 12-14-2023 13:17-0400 SaO2% (BldA) [Mass fraction] 97 % Dank Robert DO Work Phone: [facility] 12-14-2023 13:17-0400 Systolic blood pressure 152 mm[Hg] Dank Robert DO Work Phone: [facility] 08-25-2023 12:12-0400 Body height 177.8 cm Varghese Caal MD Work Phone: [facility] 08-25-2023 12:12-0400 Body mass index (BMI) [Ratio] 33.43 kg/m2 Varghese Caal MD Work Phone: [facility] 08-25-2023 12:12-0400 Body weight 105.69 kg Varghese Caal MD Work Phone: [facility] 08-25-2023 12:12-0400 Diastolic blood pressure 54 mm[Hg] Varghese Caal MD Work Phone: [facility] 08-25-2023 12:12-0400 Heart rate 60 /min Varghese Caal MD Work Phone: [facility] 08-25-2023 12:12-0400 Systolic blood pressure 126 mm[Hg] Varghese Caal MD Work Phone: [facility] 02-10-2023 11:37-0500 Body height 177.8 cm Varghese Caal MD Work Phone: [facility] 02-10-2023 11:37-0500 Body mass index (BMI) [Ratio] 32.28 kg/m2 Varghese Caal MD Work Phone: [facility] 02-10-2023 11:37-0500 Body weight 102.06 kg Varghese Caal MD Work Phone: [facility] 02-10-2023 11:37-0500 Diastolic blood pressure 58 mm[Hg] Varghese Caal MD Work Phone: [facility] 02-10-2023 11:37-0500 Heart rate 63 /min Varghese Caal MD Work Phone: [facility] 02-10-2023 11:37-0500 Systolic blood pressure 120 mm[Hg] Varghese Caal MD Work Phone: [facility] 07-01-2022 10:54-0400 Body height 177.8 cm Andrea Espinoza Work Phone: [facility] 600 DO Work Phone: 07-01-2022 10:54-0400 Body mass index (BMI) [Ratio] 32.71 kg/m2 Andrea Espinoza Work Phone: [facility] [employer] 600 DO Work Phone: 07-01-2022 10:54-0400 Body surface area Derived from formula 2.21 m2 Andrea Espinoza Work Phone: [facility] 600 DO Work Phone: 07-01-2022 10:54-0400 Body weight 103.42 kg Andrea Espinoza Work Phone: [facility] 600 DO Work Phone: 07-01-2022 10:54-0400 Diastolic blood pressure 64 mm[Hg] Andrea Espinoza Work Phone: [facility] 600 DO Work Phone: 07-01-2022 10:54-0400 Heart rate 72 /min Andrea Espinoza Work Phone: [facility] 600 DO Work Phone: 07-01-2022 10:54-0400 Systolic blood pressure 118 mm[Hg] Andrea Vasquezroh Work Phone: [facility] 600 DO Work Phone: 12-16-2021 11:08-0400 Body height 177.8 cm Andrea Espinoza Work Phone: [facility] 600 DO Work Phone: 12-16-2021 11:08-0400 Body mass index (BMI) [Ratio] 33.86 kg/m2 Andrea Houstonh Work Phone: [facility] 600 DO Work Phone: 12-16-2021 11:08-0400 Body surface area Derived from formula 2.24 m2 Andrea Espinoza Work Phone: [facility] 600 DO Work Phone: 12-16-2021 11:08-0400 Body weight 107.05 kg Andrea Espinoza Work Phone: [facility] 600 DO Work Phone: 12-16-2021 11:08-0400 Diastolic blood pressure 64 mm[Hg] Andrea Vasquezroh Work Phone: [facility] 600 DO Work Phone: 12-16-2021 11:08-0400 Heart rate 72 /min Andrea Vasquezroh Work Phone: [facility] 600 DO Work Phone: 12-16-2021 11:08-0400 Systolic blood pressure 132 mm[Hg] Andrea Espinoza Work Phone: [facility] 600 DO Work Phone: 01-22-2021 14:36-0400 Body height 177.8 cm Andrea Espinoza Work Phone: [facility] 250 DO Work Phone: 01-22-2021 14:36-0400 Body mass index (BMI) [Ratio] 34.01 kg/m2 Andrea Espinoza Work Phone: [facility] 250 DO Work Phone: 01-22-2021 14:36-0400 Body surface area Derived from formula 2.24 m2 Andrea Espinoza Work Phone: [facility] 250 DO Work Phone: 01-22-2021 14:36-0400 Body weight 107.5 kg Andrea Espinoza Work Phone: [facility] 250 DO Work Phone: 01-22-2021 14:36-0400 Diastolic blood pressure 54 mm[Hg] Andrea Espinoza Work Phone: [facility] 250 DO Work Phone: 01-22-2021 14:36-0400 Heart rate 76 /min Andrea Espinoza Work Phone: [facility] 250 DO Work Phone: 01-22-2021 14:36-0400 Systolic blood pressure 104 mm[Hg] Andrea Espinoza Work Phone: [facility] 250 DO Work Phone: Encounters Encounter Date Encounter Type Care Provider Facility Start: 05-18-2024 ambulatory Mica Car Facility:[facility] [place] Start: 05-13-2024 Non-patient / Non-visit Nova Medina MD Work Phone: [facility] Work Phone: Start: 05-12-2024 ambulatory Mica Car Facility:[facility] Start: 05-09-2024 End: 05-13-2024 Evaluation and management of inpatient Lori Medina MD Work Phone: [facility] Work Phone: Start: 04-26-2024 End: 04-26-2024 ambulatory [place] [place] Start: 04-25-2024 End: 04-25-2024 ambulatory Deepti Powell Facility:[facility] [place] Start: 04-25-2024 End: 04-25-2024 ambulatory Mica Car [place] [place] Start: 04-12-2024 End: 04-12-2024 ambulatory Mica Car [place] [place] Start: 04-08-2024 Non-patient / Non-visit Nova Medina MD Work Phone: [facility] Work Phone: Start: 04-06-2024 End: 04-06-2024 ambulatory Mica Cra Facility:[facility] Start: 03-28-2024 End: 03-28-2024 ambulatory Benton Vasquez [facility] Work Phone: Start: 03-28-2024 End: 03-28-2024 Departed Referred Benton Vasquez DO [facility] [place] [facility] Start: 03-24-2024 End: 03-24-2024 ambulatory Mica Car Facility:[facility] Start: 03-11-2024 End: 03-11-2024 ambulatory Benton Vasquez Facility:[facility] Start: 03-11-2024 End: 03-11-2024 Departed Referred Benton Vasquez DO [facility] [place] [facility] Start: 03-02-2024 End: 03-02-2024 [facility]ulatory [facility] Start: 03-01-2024 End: 03-01-2024 Office outpatient visit 25 minutes Osvaldo Dickinson MD Work Phone: [facility] Comment on above: Paroxysmal atrial fi brillation (Multi) (Primary Dx); Sick sinus syndrome (Multi); Pacemaker; Essential hypertension; Cardiomyopathy, unspecified type (Multi); Mixed hyperlipidemia; Stage 4 chronic kidney disease (Multi); Non-smoker; BMI 30.0-30.9,adult Start: 03-01-2024 End: 03-01-2024 ambulatory [facility] Start: 02-19-2024 End: 02-19-2024 Emergency department patient visit LORI Vallejo Fan [facility] Start: 02-18-2024 End: 02-18-2024 ambulatory Mica Car Facility:[facility] Start: 02-14-2024 End: 02-14-2024 ambulatory Mica Car Facility:[facility] Start: 01-31-2024 End: 01-31-2024 ambulatory Anna Milespatricia Facility:[facility] Start: 01-24-2024 End: 01-24-2024 Emergency department patient visit BOBO Gifford ELIDIA [facility] Start: 01-17-2024 End: 01-17-2024 Office outpatient visit 25 minutes Blanca Alonso MD Work Phone: [facility] Comment on above: Other atopic dermati tis (Primary Dx); Seborrheic keratosis; Lentigines; History of SCC (squamous cell carcinoma) of skin Start: 01-17-2024 End: 01-17-2024 ambulatory BLANCA ALONSO Not Available Start: 12-27-2023 End: 12-27-2023 ambulatory Mica Car Facility:[facility] Start: 12-14-2023 End: 12-14-2023 Bamboo flowsheet Dank Jones DO Work Phone: [facility] [address] [facility] Start: 12-14-2023 End: 12-14-2023 Bamboo flowsheet Dank Jones DO Work Phone: [facility] Start: 12-14-2023 End: 12-14-2023 Office outpatient visit 25 minutes Dank Robret DO Work Phone: [facility] Comment on above: VIRGILIO (obstructive sle ep apnea) (Primary Dx); Hypersomnia; PLMD (periodic limb movement disorder); Obesity due to excess calories, unspecified classification, unspecified whether serious comorbidity present; Snoring Start: 12-14-2023 End: 12-14-2023 ambulatory DANK JONES Not Available Start: 12-09-2023 End: 12-09-2023 ambulatory Varghese Caal Facility:[facility] Start: 11-12-2023 End: 11-12-2023 ambulatory Mica Car Facility: [place] Start: 10-14-2023 End: 10-14-2023 Emergency department patient visit Vini Quinteros Facility:[facility] Start: 10-14-2023 ambulatory Barb Elkins cility:[facility] Start: 08-31-2023 End: 08-31-2023 ambulatory BLANCA A PETITTI Not Available Start: 08-25-2023 End: 08-25-2023 Office outpatient visit 25 minutes Varghese Caal MD Work Phone: [facility] Comment on above: Essential hypertensi on (Primary Dx); Sick sinus syndrome (Multi); Mixed hyperlipidemia; Paroxysmal atrial fibrillation (Multi); Dilated cardiomyopathy (Multi); Pacemaker; BMI 33.0-33.9,adult Start: 08-25-2023 End: 08-25-2023 ambulatory [facility] Start: 08-10-2023 End: 08-10-2023 ambulatory BLANCA A PETITTI Not Available Start: 06-16-2023 End: 06-16-2023 ambulatory NAPOLEON TA Facility: [place] Start: 05-07-2023 End: 05-07-2023 ambulatory Mica Car Facility:[facility] [place] Start: 03-19-2023 End: 03-19-2023 ambulatory BLANCA PETITTI Not Available Start: 03-05-2023 End: 03-05-2023 ambulatory BLANCA A PETITTI Not Available Start: 02-10-2023 End: 02-10-2023 Office outpatient visit 25 minutes Varghese Caal MD Work Phone: [facility] Comment on above: Sick sinus syndrome (CMS/HCC) (Primary Dx); Mobitz type II atrioventricular block; Pacemaker; Essential hypertension; Dilated cardiomyopathy (CMS/HCC); Paroxysmal atrial fibrillation (CMS/HCC) Start: 10-22-[address] Andrea Espinoza Facility: Start: 07-01-2022 Office outpatient vi sit 25 minutes Andrea Espinoza Work Phone: [facility] 600 DO Work Phone: Start: 07-01-[address] Varghese Caal II Facility: Start: 05-28-2022 End: 05-28-[address] TRINO Lange Facility:[facility] Start: 05-14-2022 End: 05-15-2022 ambulatory MARIXA ROY Facility:[facility] Start: 04-23-[address] Andrea Espinoza Facility: Start: 12-31-2021 Rx Renewal Andrea Espinoza Work Phone: [facility] 250 DO Work Phone: Start: 12-16-2021 Office outpatient vi sit 25 minutes Andrea Espinoza Work Phone: [facility] 600 DO Work Phone: Start: 12-16-[address] Varghese Caal II Facility: Start: 01-22-2021 Office outpatient vi sit 25 minutes Andrea Espinoza Work Phone: [facility] 250 DO Work Phone: Procedures Date Procedure Procedure Detail Performing Clinician Start: 05-12-2024 Plain chest X-ray Edi Medina MD Work Phone: Start: 05-09-2024 Plain chest X-ray Edi Medina MD Work Phone: Start: 03-28-2024 Urine culture Lori H oy MD Work Phone: Start: 03-11-2024 Urine culture Benton prajapati DO Start: 03-01-2024 Ecg routine ecg w/le ast 12 lds w/i&r Osvaldo Dickinson MD Work Phone: Colonoscopy Andrea Espinoza Work Phone: Comment on above: [id number]; Insertion of pacemak er pulse generator Andrea Espinoza Work Phone: Operation on nose Andrea Gordon Radha Work Phone: Operative procedure on hand Andrea Espinoza Work Phone: Tonsillectomy and adenoidectomy Andrea Espinoza Work Phone: Plan of Treatment Date Care Activity Detail Author Start: 12-09-2032 DTaP/Tdap/Td Vaccine s (2 - Td or Tdap) DTaP/Tdap/Td Vaccines (2 - Td or Tdap) [facility] Start: 01-25-2025 End: 01-25-2025 Patient encounter procedure 01/25/2025 1:05 PM EST Office Visit [facility] [address] [place] [address] Blanca Alonso MD [address] [place], [place] [id number] [facility] Start: 12-12-2024 End: 12-12-2024 Patient encounter procedure 12/12/2024 1:00 PM EDT Office Visit [facility] [place] [address] [place] [address] Rox Cervantes NP [address] [place], [place] [facility] [address] [facility] Start: 11-28-2024 Glaucoma screening Diabetes: R etinopathy Screening [facility] Start: 11-07-2024 End: 11-07-2024 Patient encounter procedure 11/07/2024 10:30 AM EDT Office Visit [place] [address] [place] [address] Osvaldo Dickinson MD [address] [facility] [address] [place] [address] [facility] Start: 05-13-2024 [facility] Start: 05-12-2024 Administration of prophylactic treatment [facility] Start: 05-09-2024 Hospital admission [facility] Start: 05-09-2024 Referral to television station manager [facility] Start: 03-28-2024 Urine culture [facility] Start: 03-28-2024 Bacteria identified in Urine by Culture Urine Culture [facility] Start: 03-01-2024 End: 03-01-2024 Patient encounter procedure 03/01/2024 11:00 AM EST [facility] [address] [facility] [address] [place] [address] Osvaldo Dickinson MD [address] [facility] [address] [place] [address] [facility] Start: 01-17-2024 End: 01-17-2024 Patient encounter procedure 01/17/2024 3:15 PM EDT Office Visit [facility] [address] [place] [phone] Blanca Alonso MD [address] [place] [address] [facility] Start: 12-14-2023 End: 12-14-2023 Patient encounter procedure 12/14/2023 1:30 PM EDT Office Visit [facility] [place] [address] [place] [id number] Dank Jones, [address] [place], [place] [id number] Arrived [facility] [place] [facility] Comment on above: Arrived Start: 12-01-2023 Glaucoma screening Diabetes: R etinopathy Screening [facility] Start: 08-25-2023 End: 08-25-2023 Patient encounter procedure 08/25/2023 11:40 AM EDT Office Visit [facility] [address] [place] [phone] Varghese Caal MD [address] [facility] [address] [place] [address] [facility] Start: 06-05-2023 COVID-19 Vaccine () COVID-19 Vaccine () [facility] Start: 04-01-2023 COVID-19 Vaccine (6 - Moderna series) COVID-19 Vaccine (6 - Moderna series) [facility] Start: 02-10-2023 FUV, Provider: Varghese Caal, Status: Pen, Time: 11:30 AM FUV, Provider: Varghese Caal, Status: Pen, Time: 11:30 AM [facility] 600 DO Work Phone: Start: 07-01-2022 FUV, Provider: Varghese Caal, Status: Pen, Time: 10:40 AM FUV, Provider: Varghese Caal, Status: Pen, Time: 10:40 AM [facility] DO Work Phone: Start: 09-10-2021 FUV, Provider: Varghese Caal, Status: Pen, Time: 2:30 PM FUV, Provider: Varghese Caal, Status: Pen, Time: 2:30 PM [facility] Work Phone: Start: 2020 RSV High Risk: (Elde rly (60+) or Population) (1 - 1-dose 75+ series) RSV High Risk: (Elderly (60+) or Population) (1 - 1-dose 75+ series) [facility] Start: 05-09-2020 Echocardiography Echocardiogram [facility] Start: 2005 RSV patient s and/or patients aged 60+ years (1 - 1-dose 60+ series) RSV patients and/or patients aged 60+ years (1 - 1-dose 60+ series) [facility] Start: 11-26-1995 Zoster Vaccines (1 of 2) Zoste r Vaccines (1 of 2) [facility] Start: 1964 Urine screening for protein Diabetes: Urine Protein Screening [facility] Start: 11-26-1963 Hepatitis C screening Hepatitis C Sc reening [facility] Start: 11-26-1955 Diabetic foot examination Diabetes: Foot Exam [facility] Start: 11-26-1955 Glaucoma screening Diabetes: R etinopathy Screening [facility] Start: 1945 Creatinine measurement Creatinine Le sarah [facility] Start: 1945 Hemoglobin A1c measurement Jennifer betes: Hemoglobin A1C [facility] Start: 1945 Lipid panel Lipid Panel [facility] Start: 1945 Medicare Annual Well ness Visit Medicare Annual Wellness Visit (AWV) [facility] Start: 1945 Potassium measurement Potassium Leve l [facility] Patient referral [facility] Work Phone: Immunizations Immunization Date Immunization Notes Care Provider Severo sneed 01-14-2022 Fluad Quadrivalent 0 .5 ML Intramuscular Prefilled Syringe Andrea Espinoza Work Phone: [facility] 600 DO Work Phone: 01-14-2022 Pfizer COVID-19 Vac Bivalent 30 MCG/0.3ML Intramuscular Suspension Andrea Patel Savedaily Work Phone: [facility] 600 DO Work Phone: 09-03-2021 pneumococcal conjuga te vaccine, 13 valent Dank Jones DO Work Phone: [facility] 02-15-2021 Moderna COVID-19 Vac cine 100 MCG/0.5ML Intramuscular Suspension Andrea Patel [employer] Work Phone: [facility] 600 DO Work Phone: 01-30-2021 influenza virus vacc ine, unspecified formulation Andrea Amanda Espinoza Work Phone: [facility] 600 DO Work Phone: 11-28-2020 influenza, high dose seasonal, preservative-free Andrea Amanda Vasquezemmazulay Work Phone: [facility] 250 DO Work Phone: Comment on above: Series: 06-20-2020 Moderna COVID-19 Vac cine 100 MCG/0.5ML Intramuscular Suspension Andrea Espinoza Work Phone: [facility] 600 DO Work Phone: 05-20-2020 Moderna COVID-19 Vac cine 100 MCG/0.5ML Intramuscular Suspension Andrea Amanda Espinoza Work Phone: [facility] 250 DO Work Phone: Comment on above: Series: 04-25-2020 Moderna COVID-19 Vac cine 100 MCG/0.5ML Intramuscular Suspension Andrea Amanda Espinoza Work Phone: [facility] 250 DO Work Phone: Comment on above: Series: 12-21-2019 influenza virus vacc ine, unspecified formulation Andrea Patel Pedroemmazulay Work Phone: [facility] 600 DO Work Phone: 12-20-2018 influenza, high dose seasonal, preservative-free Andrea Espinoza Work Phone: [facility] 02-19-2018 influenza virus vacc ine, unspecified formulation Andrea Patel Pedroyann Work Phone: [facility] 600 DO Work Phone: 02-19-2018 pneumococcal polysaccharide vaccine, 23 valent Andrea Espinoza Work Phone: [facility] 250 DO Work Phone: Comment on above: Series: 02-19-2018 pneumococcal vaccine , unspecified formulation Andrea Vasquezemmazulay Work Phone: [facility] 02-18-2017 Influenza, injectabl e, Madin Lakisha Canine Kidney, preservative free, quadrivalent Andrea Espinoza Work Phone: [facility] 600 DO Work Phone: 11-24-2016 influenza, high dose seasonal, preservative-free Andrea Espinoza Work Phone: [facility] 600 DO Work Phone: 12-21-2015 pneumococcal conjuga te vaccine, 13 valent Andrea Espinoza Work Phone: [facility] 250 DO Work Phone: Comment on above: Series: Payers Date Payer Category Payer Self-pay 2022 Medicare [id number] 2022 Department [facility] e ( and others) [id number] 2022 () [id number] 2022 For Life (TFL) F [employer] LIFE [id number] 2022 [employer] ( and others) [id number] 2010 Medicare [id number] 1959 [employer] ( and others) [id number] 1959 Medicare [id number] 1945 Unknown [id number] 2.16840.1.093934.3.579. 2.593 1945 Unknown [id number] 2.16840.1.676735.3.579. 2.593 1945 Unknown [id number] 2.16.840.1.328480.3.579. 2.356 1945 Unknown [id number] 2.16840.1.282332.3.579. 2.356 1945 Unknown [id number] 2.16840.1.220834.3.579. 2.356 1945 Unknown [id number] 2.16.840.1.386514.3.579. 2.356 1945 Unknown [id number] 2.16.840.1.087210.3.579. 2.1259 1945 Unknown [id number] 2.16.840.1.663565.3.579. 2.1259 1945 Unknown [id number] 2.16.840.1.503396.3.579. 2.1259 1945 Unknown [id number] 2.16.840.1.093058.3.579. 2.1259 1945 Unknown [id number] 2.16.840.1.265548.3.579. 2.1259 1945 Unknown [id number] 2.16.840.1.135593.3.579. 2.1259 1945 Unknown [id number] 2.16.840.1.755311.3.579. 2.1286 1945 Unknown [id number] 2.16.840.1.318392.3.579. 2.1286 1945 Unknown [id number] 2.16.840.1.365720.3.579. 2.124 1945 Unknown [id number] 2.16.840.1.438445.3.579. 2.1244 1945 Unknown [id number] 2.16840.1.341912.3.579. 2.72 1945 Unknown [id number] 2.16840.1.031998.3.579. 2.72 1945 Unknown [id number] 2.16840.1.978131.3.579. 2.72 1945 Unknown [id number] 2.16.840.1.966240.3.579. 2.72 1945 Unknown [id number] 2.16840.1.088578.3.579. 2.72 1945 Unknown [id number] 2.16.840.1.506978.3.579. 2.72 1945 Unknown [id number] 2.16.840.1.872465.3.579. 2.72 1945 Unknown [id number] 2.16.840.1.975628.3.579. 2.727 1945 Unknown [id number] 2.16.840.1.214629.3.579. 2.727 1945 Unknown [id number] 2.16.840.1.087636.3.579. 2.727 1945 Unknown [id number] 2.16.840.1.874666.3.579. 2.727 1945 Unknown [id number] 2.16.840.1.985922.3.579. 2.72 1945 Unknown [id number] 2.16.840.1.775225.3.579. 2.72 1945 Unknown [id number] 2.16.840.1.641293.3.579. 2.72 1945 Unknown [id number] 2.16.840.1.401933.3.579. 2.727 1945 Unknown [id number] 2.16.840.1.958517.3.579. 2. 1945 Unknown [id number] 2.16.840.1.834784.3.579. 2.727 1945 Unknown [id number] 2.16.840.1.064305.3.579. 2.72 1945 Unknown [id number] 2.16.840.1.189255.3.579. 2.727 1945 Unknown [id number] 2.16.840.1.299155.3.579. 2.727 Unknown Unknown [id number] 2.16.840.1.342544.3.579. 2.531 Unknown [id number] 2.16.840.1.128917.3.579. 2.531 Unknown [id number] 2.16.840.1.957848.3.579. 2.531 Social History Date Type Detail Facility Start: 02-10-2023 End: 12-14-2023 No illicit drug use No illicit drug use [place] [id number] DO Work Phone: Comment on above: quit 04-1995, 1 PPD; Start: 02-10-2023 End: 05-10-2024 Tobacco smoking status NHIS Ex-smoker [facility] Work Phone: End: 03-22-1992 History of tobacco use Current smoker [facility] Work Phone: End: 03-22-1992 History of tobacco use Cigarette Smoker [facility] Work Phone: Start: 10-11-2022 End: 02-10-2023 Tobacco use and exposure Smokeless tobacco non-user [facility] Work Phone: Start: 02-10-2023 End: 12-14-2023 Alcohol intake Lifetime non-drinker (finding) [facility] Work Phone: Start: 02-10-2023 End: 12-14-2023 Tobacco use panel [facility] Work Phone: Start: 1945 Sex Assigned At Not on file [facility] Work Phone: Start: 01-31-2023 End: 03-01-2024 Exposure to SARS-CoV-2 (event) Not sure [facility] Start: 10-11-2022 [facility] Tobacco smoking stat us NHIS Unknown if ever smoked [facility] Work Phone: Start: 03-30-2024 Sex Patient sex un known (finding) [facility] Start: 1945 Sex Assigned At Male [facility] Start: 05-13-2024 Sex Male (finding) [facility] Start: 05-11-2024 SDOH Follow up SDOH Follow up [facility] Work Phone: Goals Date Patient Goal Desired Activity /State Functional Status Date Assessment Result Facility 05-13-2024 Functional status Patient is Pro gressing Toward Baseline [facility] Work Phone: Mental Status Date Assessment Result Facility 05-13-2024 Cognitive function Cognitive Sta tus Patient at Baseline [facility] Work Phone: Clinical Notes 05-14-2022 to 05-13-2024 Note Date & Type Note Facility 05-13-2024 Progress note Note Date/Time May 13, 2024 12:49pm [facility] [address] [place], [place] [id number] Cardiology Progress Note Signed Patient: Leighton Arciniega MR#: [id number] : 1945 Acct:[id number] Age/Sex: 78 / M Adm Date: 5 Loc: 4 Room: [address] [place] [address] Type: ADM IN Attending Dr: lAexa Corona MD Copies to: ~ Date of Service: 05/13/2024 Subjective Principal diagnosis: History of heart failure Interval history: Mr. Arciniega is a 78 year old male known to me. He is a former patient of Dr. Caal with a prior history of sick sinus syndrome status post permanent pacemaker implantation, paroxysmal atrial fibrillation presented to the hospitalwith worsening shortness of breath. Patient report over the last few weeks has been admitted twice to [place] and was treated for pneumonia. The patient denies cough or fever but describes significant shortness of breath. During hishospitalization apparently 2 echocardiogram was done the initial 1 showed normalejection fraction while the second 1 showed ejection fraction around 25%. The patient had no previous history of coronary artery disease. His previous ejection fraction based on echocardiogram remotely in our office was around 45%. He is known to have history of stage III chronic kidney disease with creatininearound 1.9. The patient transferred over here for further care and consideration for cardiac catheterization. The patient report his symptoms of heart failure is improving with diuresis. He denies chest pain. Cardiology follow-up 05/11/2024: Patient is more comfortable, no dyspnea at rest,no edema, rhythm is mostly AV paced. Limited echo is scheduled for today for updated ejection fraction for proper management. Tolerating heart failure therapy fairly well. Renal function is abnormal but stable Cardiology follow-up 05/12/2024: Patient is improving and ambulating in the room without difficulties. Blood pressure is on the upper normal range, arrangementshave been made to discharge patient over the weekend to the [facility] for recovery. His kidney function is unchanged and the creatinine around 1.85 mg/dL. His exam is unchanged from yesterday. We discussed long-term plans, will increase hydralazine up to 50 mg 3 times daily and add spironolactone 12.5 mg daily, his potassium is on the low side at 3.3 mmol/L. He will be evaluated as an outpatient for myocardial ischemia noninvasively. He already has an appointment scheduled in our office. Cardiology follow-up 05/13/2024: Overall stable. No new complaints. Planning for discharge to SNF today. Exam Physical Exam Vital Signs: Temp Pulse Resp BP Pulse Ox O2 Del Method O2 Flow Rate 97.6 F 89 17 123/62 98 Nasal Cannula 2 05/13/24 08:00 05/13/24 11:55 05/13/24 11:55 05/13/24 11:55 05/13/24 11:55 05/13/24 11:55 05/13/24 11:55 FiO2 40 05/11/24 04:00 Const General: cooperative, comfortable, no acute distress and well developed Nutritional Appearance: overweight Orientation: alert, awake and oriented x3 HEENT Head: normal to inspection, normocephalic and atraumatic Ears: hearing grossly normal bilaterally Nose: external nose normal Face and sinus: normal facial exam Mouth: oral mucosae normal Eyes General: appearance normal, both eyes and all related structures Conjunctivae: conjunctivae normal Pupils: PERRL Neck Neck: normal visual inspection, trachea midline, supple and no lymphadenopathy noted Neck mass: No Thyroid: thyroid normal Carotids: normal carotid upstroke Chest Chest palpation & inspection: normal inspection of the chest Resp Effort & Inspection: normal respiratory effort Auscultation: crackles, rales and rhonchi Cardio Jugular venous pressure: no JVD Palpation: normal PMI Rate: regular rate Rhythm: regular rhythm Heart Sounds: S1 normal, S2 normal and murmur systolic II/ GI Inspection: normal to inspection Palpation: soft and no hepatosplenomegaly Percussion: normal to percussion Auscultation: normal bowel sounds Skin General: no rashes or lesions noted and dry skin Neuro General: patient alert, patient awake, patient oriented x3, tone normal and moves all extremities Extrem General: full ROM, capillary refill normal and no clubbing, cyanosis or edema Psych Mental Status: mental status grossly normal Objective Labs 05/13/24 05:05 05/13/24 05:05 Labs: Laboratory Results - last 24 hr 05/12/24 05/12/24 05/13/24 16:26 20:44 05:05 Corrected WBC 6.3 Uncorrected WBC Count 6.3 RBC 2.76 L Hgb 9.1 L Hct 26.2 L MCV 95.0 MCH 32.8 MCHC 34.6 RDW 16.3 H Plt Count 115 L MPV 6.9 Neut % (Auto) 68.7 Lymph % (Auto) 17.8 [place] % (Auto) 7.9 Eos % (Auto) 5.3 Baso % (Auto) 0.3 Nucleat RBC Rel Count 0.0 Neut # (Auto) 4.3 Lymph # (Auto) 1.1 [place] # (Auto) 0.5 Eos # (Auto) 0.3 Baso # (Auto) 0.0 PHA Creatinine Clear 41.63 Sodium 143 Potassium 3.5 Chloride 103 Carbon Dioxide 33.9 H Anion Gap 9.6 BUN 62 H Creatinine 1.51 H Est GFR (CKD-EPI) 46.982 Glucose 139 H POC Glucose 287 383 Calcium 8.5 L 05/13/24 11:35 Corrected WBC Uncorrected WBC Count RBC Hgb Hct MCV MCH MCHC RDW Plt Count MPV Neut % (Auto) Lymph % (Auto) [place] % (Auto) Eos % (Auto) Baso % (Auto) Nucleat RBC Rel Count Neut # (Auto) Lymph # (Auto) [place] # (Auto) Eos # (Auto) Baso # (Auto) PHA Creatinine Clear Sodium Potassium Chloride Carbon Dioxide Anion Gap BUN Creatinine Est GFR (CKD-EPI) Glucose POC Glucose 379 Calcium A&P - Cardiology (1) CHF (congestive heart failure): Assessment/Problem Details: He is known to have normal coronary angiogram in 2013, 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 Presently compensated on medical therapy. Ejection fraction yesterday quite low at 25% Code(s): I50.9 - Heart failure, unspecified (2) Sick sinus syndrome: Assessment/Problem Details: Status post pacemaker followed in the pacemaker clinic Code(s): I49.5 - Sick sinus syndrome (3) Pacemaker: Code(s): Z95.0 - Presence of cardiac pacemaker (4) Chronic kidney disease: Assessment/Problem Details: Kidney function has been stable for last 48 hours Code(s): N18.9 - Chronic kidney disease, unspecified Plan 1. Continue to advance heart failure therapy with second tier regimen due to renal disease. He is responding well to diuretic therapy. Switch bumex from IV to PO 1.5mg daily. Please continue this at discharge. 2. Ischemic evaluation will be necessary but I believe invasive evaluation at the moment will carry significant risk of contrast-induced nephropathy, once stable Lexiscan MPI. Last [facility] was normal but was at [facility] in 2012. 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 3. Continue anticoagulation for now 4. Will see as needed. Please call with any questions. He will f/u with [facility] cardiology. Documented By: John Nettles MD 04/23 05/16 1233 Signed By: <Electronically signed by John Nettles MD> 05/13/24 1245 [facility] Work Phone: 1(902) 561-135902-22-2025 [place] [address] Cardiology Progress Note Signed Patient: Leighton Arciniega MR#: [id number] : 1945 Acct:[id number] Age/Sex: 78 / M Adm Date: 5 Loc: Room: [address] [place] [address] Type: ADM IN Attending Dr: Alexa Corona MD Copies to: ~ Date of Service: 05/13/2024 Subjective Principal diagnosis: History of heart failure Interval history: Mr. Arciniega is a 78 year old male known to me. He is a former patient of Dr. Caal with a prior history of sick sinus syndrome status post permanent pacemaker implantation, paroxysmal atrial fibrillation presented to the hospitalwith worsening shortness of breath. Patient report over the last few weeks has been admitted twice to [place] and was treated for pneumonia. The patient denies cough or fever but describes significant shortness of breath. During hishospitalization apparently 2 echocardiogram was done the initial 1 showed normalejection fraction while the second 1 showed ejection fraction around 25%. The patient had no previous history of coronary artery disease. His previous ejection fraction based on echocardiogram remotely in our office was around 45%. He is known to have history of stage III chronic kidney disease with creatininearound 1.9. The patient transferred over here for further care and consideration for cardiac catheterization. The patient report his symptoms of heart failure is improving with diuresis. He denies chest pain. Cardiology follow-up 05/11/2024: Patient is more comfortable, no dyspnea at rest,no edema, rhythm ismostly AV paced. Limited echo is scheduled for today for updated ejection fraction for proper management. Tolerating heart failure therapy fairly well. Renal function is abnormal but stable Cardiology follow-up 05/12/2024: Patient is improving and ambulating in the room without difficulties. Blood pressure is on the upper normal range, arrangementshave been made to discharge patient overthe weekend to the [facility] for recovery. His kidney function is unchanged and the creatinine around1.85 mg/dL. His exam is unchanged from yesterday. We discussed long-term plans, will increase hydralazine up to 50 mg 3 times daily and add spironolactone 12.5 mg daily, his potassium is on the low side at 3.3 mmol/L. He will be evaluated as an outpatient for myocardial ischemia noninvasively. He already has an appointment scheduled in our office. Cardiology follow-up 05/13/2024: Overall stable. No new complaints. Planning for discharge to SNF today. Exam Physical Exam Vital Signs: Temp Pulse Resp BP Pulse Ox O2 Del Method O2 Flow Rate 97.6 F 89 17 123/62 98 Nasal Cannula 2 05/13/24 08:00 05/13/24 11:55 05/13/24 11:55 05/13/24 11:55 05/13/24 11:55 05/13/24 11:55 05/13/24 11:55 FiO2 40 05/11/24 04:00 Const General: cooperative, comfortable, no acute distress and well developed Nutritional Appearance: overweight Orientation: alert, awake and oriented x3 HEENT Head: normal to inspection, normocephalic and atraumatic Ears: hearing grossly normal bilaterally Nose: external nose normal Face and sinus: normal facial exam Mouth: oral mucosae normal Eyes General: appearance normal, both eyes and all related structures Conjunctivae: conjunctivae normal Pupils: PERRL Neck Neck: normal visual inspection, trachea midline, supple and no lymphadenopathy noted Neck mass: No Thyroid: thyroid normal Carotids: normal carotid upstroke Chest Chest palpation & inspection: normal inspection of the chest Resp Effort & Inspection: normal respiratory effort Auscultation: crackles, rales and rhonchi Cardio Jugular venous pressure: no JVD Palpation: normal PMI Rate: regular rate Rhythm: regular rhythm Heart Sounds: S1 normal, S2 normal and murmur systolic II/ GI Inspection: normal to inspection Palpation: soft and no hepatosplenomegaly Percussion: normal to percussion Auscultation: normal bowel sounds Skin General: no rashes or lesions noted and dry skin Neuro General: patient alert, patient awake, patient oriented x3, tone normal and moves all extremities Extrem General: full ROM, capillary refill normal and no clubbing, cyanosis or edema Psych Mental Status: mental status grossly normal Objective Labs 05/13/24 05:05 05/13/24 05:05 Labs: Laboratory Results - last 24 hr 05/12/24 05/12/24 05/13/24 16:26 20:44 05:05 Corrected WBC 6.3 Uncorrected WBC Count 6.3 RBC 2.76 L Hgb 9.1 L Hct 26.2 L MCV 95.0 MCH 32.8 MCHC 34.6 RDW 16.3 H Plt Count 115 L MPV 6.9 Neut % (Auto) 68.7 Lymph % (Auto) 17.8 [place] % (Auto) 7.9 Eos % (Auto) 5.3 Baso % (Auto) 0.3 Nucleat RBC Rel Count 0.0 Neut # (Auto) 4.3 Lymph # (Auto) 1.1 [place] # (Auto) 0.5 Eos # (Auto) 0.3 Baso # (Auto) 0.0 PHA Creatinine Clear 41.63 Sodium 143 Potassium 3.5 Chloride 103 Carbon Dioxide 33.9 H Anion Gap 9.6 BUN 62 H Creatinine 1.51 H Est GFR (CKD-EPI) 46.982 Glucose 139 H POC Glucose 287 383 Calcium 8.5 L 05/13/24 11:35 Corrected WBC Uncorrected WBC Count RBC Hgb Hct MCV MCH MCHC RDW Plt Count MPV Neut % (Auto) Lymph % (Auto) [place] % (Auto) Eos % (Auto) Baso % (Auto) Nucleat RBC Rel Count Neut # (Auto) Lymph # (Auto) [place] # (Auto) Eos # (Auto) Baso # (Auto) PHA Creatinine Clear Sodium Potassium Chloride Carbon Dioxide Anion Gap BUN Creatinine Est GFR (CKD-EPI) Glucose POC Glucose 379 Calcium A&P - Cardiology (1) CHF (congestive heart failure): Assessment/Problem Details: He is known to have normal coronary angiogram in 2013, 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 Presently compensated on medical therapy. Ejection fraction yesterday quite low at 25% Code(s): I50.9 - Heart failure, unspecified (2) Sick sinus syndrome: Assessment/Problem Details: Status post pacemaker followed in the pacemaker clinic Code(s): I49.5 - Sick sinus syndrome (3) Pacemaker: Code(s): Z95.0 - Presence of cardiac pacemaker (4) Chronic kidney disease: Assessment/Problem Details: Kidney function has been stable for last 48 hours Code(s): N18.9 - Chronic kidney disease, unspecified Plan 1. Continue to advance heart failure therapy with second tier regimen due to renal disease. He is responding well to diuretic therapy. Switch bumex from IV to PO 1.5mg daily. Please continue this at discharge. 2. Ischemic evaluation will be necessary but I believe invasive evaluation at the moment will carrysignificant risk of contrast-induced nephropathy, once stable Lexiscan MPI. Last [facility] was normal butwas at [facility] in 2012. 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 3. Continue anticoagulation for now 4. Will see as needed. Please call with any questions. He will f/u with [facility] cardiology. Documented By: John Nettles MD 04/23 05/16 1234 Signed By: 05/13/24 1249 [facility]02-21-2025 Progress note Author Rupert Rey [facility] Note Date/Time May 12, 2024 5:40pm [facility] [address] [place] [address] Cardiology Progress Note Signed Patient: Leighton Arciniega MR#: [id number] : 1945 Acct:[id number] Age/Sex: 78 / M Adm Date: 5 Loc: Room: [address] [place] [address] Type: ADM IN Attending Dr: Alexa Corona MD Copies to: ~ Date of Service: 05/12/2024 Subjective Principal diagnosis: History of heart failure Interval history: Mr. Arciniega is a 78 year old male known to me. He is a former patient of Dr. Caal with a prior history of sick sinus syndrome status post permanent pacemaker implantation, paroxysmal atrial fibrillation presented to the hospitalwith worsening shortness of breath. Patient report over the last few weeks has been admitted twice to [place] and was treated for pneumonia. The patient denies cough or fever but describes significant shortness of breath. During hishospitalization apparently 2 echocardiogram was done the initial 1 showed normalejection fraction while the second 1 showed ejection fraction around 25%. The patient had no previous history of coronary artery disease. His previous ejection fraction based on echocardiogram remotely in our office was around 45%. He is known to have history of stage III chronic kidney disease with creatininearound 1.9. The patient transferred over here for further care and consideration for cardiac catheterization. The patient report his symptoms of heart failure is improving with diuresis. He denies chest pain. Cardiology follow-up 05/11/2024: Patient is more comfortable, no dyspnea at rest,no edema, rhythm is mostly AV paced. Limited echo is scheduled for today for updated ejection fraction for proper management. Tolerating heart failure therapy fairly well. Renal function is abnormal but stable Cardiology follow-up 05/12/2024: Patient is improving and ambulating in the room without difficulties. Blood pressure is on the upper normal range, arrangementshave been made to discharge patient over the weekend to the [facility] for recovery. His kidney function is unchanged and the creatinine around 1.85 mg/dL. His exam is unchanged from yesterday. We discussed long-term plans, will increase hydralazine up to 50 mg 3 times daily and add spironolactone 12.5 mg daily, his potassium is on the low side at 3.3 mmol/L. He will be evaluated as an outpatient for myocardial ischemia noninvasively. He already has an appointment scheduled in our office. Exam Physical Exam Vital Signs: Temp Pulse Resp BP Pulse Ox O2 Del Method O2 Flow Rate 97.9 F 89 18 143/66 H 94 L Nasal Cannula 2 05/12/24 08:00 05/12/24 16:00 05/12/24 16:00 05/12/24 16:00 05/12/24 16:00 05/12/24 16:00 05/12/24 16:00 FiO2 40 05/11/24 04:00 Const General: cooperative, comfortable and no acute distress Nutritional Appearance: overweight Orientation: alert, awake and oriented x3 HEENT Head: normal to inspection, normocephalic and atraumatic Ears: hearing grossly normal bilaterally Nose: external nose normal Face and sinus: normal facial exam Eyes Conjunctivae: conjunctivae normal Pupils: PERRL Neck Neck: normal visual inspection, trachea midline and supple Neck mass: No Thyroid: thyroid normal Carotids: normal carotid upstroke Resp Effort & Inspection: normal respiratory effort Auscultation: crackles and rales Cardio Jugular venous pressure: no JVD Palpation: normal PMI Rate: regular rate Rhythm: regular rhythm Heart Sounds: S1 normal and S2 normal GI Inspection: normal to inspection Palpation: soft and no hepatosplenomegaly Auscultation: normal bowel sounds Extrem General: no clubbing, cyanosis or edema Objective Labs 05/12/24 04:42 05/12/24 04:42 Labs: Laboratory Results - last 24 hr 05/11/24 05/12/24 05/12/24 20:18 02:43 04:42 Corrected WBC 6.1 Uncorrected WBC Count 6.1 RBC 2.87 L Hgb 9.1 L Hct 26.9 L MCV 93.9 MCH 31.8 MCHC 33.8 RDW 16.7 H Plt Count 115 L MPV 6.8 Neut % (Auto) 71.7 Lymph % (Auto) 16.4 [place] % (Auto) 6.8 Eos % (Auto) 4.5 Baso % (Auto) 0.6 Nucleat RBC Rel Count 0.1 Neut # (Auto) 4.3 Lymph # (Auto) 1.0 [place] # (Auto) 0.4 Eos # (Auto) 0.3 Baso # (Auto) 0.0 PHA Creatinine Clear 33.98 Sodium 143 Potassium 3.3 L Chloride 103 Carbon Dioxide 34.1 H Anion Gap 9.2 BUN 75 H Creatinine 1.85 H Est GFR (CKD-EPI) 36.821 Glucose 48 L* POC Glucose 218 93 POC Glucose Comment Glu2: cleaned meter Glu2: cleaned meter Calcium 8.6 05/12/24 05/12/24 05/12/24 05:18 07:23 11:27 Corrected WBC Uncorrected WBC Count RBC Hgb Hct MCV MCH MCHC RDW Plt Count MPV Neut % (Auto) Lymph % (Auto) [place] % (Auto) Eos % (Auto) Baso % (Auto) Nucleat RBC Rel Count Neut # (Auto) Lymph # (Auto) [place] # (Auto) Eos # (Auto) Baso # (Auto) PHA Creatinine Clear Sodium Potassium Chloride Carbon Dioxide Anion Gap BUN Creatinine Est GFR (CKD-EPI) Glucose POC Glucose 63 91 214 POC Glucose Comment Calcium 05/12/24 16:26 Corrected WBC Uncorrected WBC Count RBC Hgb Hct MCV MCH MCHC RDW Plt Count MPV Neut % (Auto) Lymph % (Auto) [place] % (Auto) Eos % (Auto) Baso % (Auto) Nucleat RBC Rel Count Neut # (Auto) Lymph # (Auto) [place] # (Auto) Eos # (Auto) Baso # (Auto) PHA Creatinine Clear Sodium Potassium Chloride Carbon Dioxide Anion Gap BUN Creatinine Est GFR (CKD-EPI) Glucose POC Glucose 287 POC Glucose Comment Calcium A&P - Cardiology (1) CHF (congestive heart failure): Assessment/Problem Details: He is known to have normal coronary angiogram in 2012, 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 Presently compensated on medical therapy. Ejection fraction yesterday quite low at 25% Plan: Continue to advance heart failure therapy with second tier regimen due to renal disease. He is responding well to diuretic therapy. Will evaluate as an outpatient with Lexiscan MPI for a potential ischemic component that has developed since 2012 which I doubt Code(s): I50.9 - Heart failure, unspecified (2) Sick sinus syndrome: Assessment/Problem Details: Status post pacemaker followed in the pacemaker clinic Plan: No device malfunction Code(s): I49.5 - Sick sinus syndrome (3) Pacemaker: Plan: Continue to follow in the pacemaker clinic Code(s): Z95.0 - Presence of cardiac pacemaker (4) Chronic kidney disease: Assessment/Problem Details: Kidney function has been stable for last 48 hours Plan: Avoid nephrotoxic medications Code(s): N18.9 - Chronic kidney disease, unspecified Plan 1. Continue with loop diuretics with close observation of renal function 2. Ischemic evaluation will be necessary but I believe invasive evaluation at the moment will carry significant risk of contrast-induced nephropathy, once stable Lexiscan MPI, the patient informed me that he had cardiac catheterizationat [facility] 13 years ago and was normal 3. Continue anticoagulation for now 4?titrate heart failure therapy as tolerated Documented By: Rupert Rey MD, [facility] 1733 Signed By: <Electronically signed by MD HARSHIL Rey> 05/12/24 1740 [facility] Work Phone: [phone]) 200-944302-21-2025 [place] [id number] Cardiology Progress Note Signed Patient: Leighton Arciniega MR#: [id number] : 1945 Acct:[id number] Age/Sex: 78 / M Adm Date: 5 Loc: Room: [address] [place] [address] Type: ADM IN Attending Dr: Alexa Corona MD Copies to: ~ Date of Service: 05/12/2024 Subjective Principal diagnosis: History of heart failure Interval history: Mr. Arciniega is a 78 year old male known to me. He is a former patient of Dr. Caal with a prior history of sick sinus syndrome status post permanent pacemaker implantation, paroxysmal atrial fibrillation presented to the hospitalwith worsening shortness of breath. Patient report over the last few weeks has been admitted twice to [facility] and was treated for pneumonia. The patient denies cough or fever but describes significant shortness of breath. During hishospitalization apparently 2 echocardiogram was done the initial 1 showed normalejection fraction while the second 1 showed ejection fraction around 25%. The patient had no previous history of coronary artery disease. His previous ejection fraction based on echocardiogram remotely in our office was around 45%. He is known to have history of stage III chronic kidney disease with creatininearound 1.9. The patient transferred over here for further care and consideration for cardiac catheterization. The patient report his symptoms of heart failure is improving with diuresis. He denies chest pain. Cardiology follow-up 05/11/2024: Patient is more comfortable, no dyspnea at rest,no edema, rhythm ismostly AV paced. Limited echo is scheduled for today for updated ejection fraction for proper management. Tolerating heart failure therapy fairly well. Renal function is abnormal but stable Cardiology follow-up 05/12/2024: Patient is improving and ambulating in the room without difficulties. Blood pressure is on the upper normal range, arrangementshave been made to discharge patient overthe weekend to the [facility] for recovery. His kidney function is unchanged and the creatinine around1.85 mg/dL. His exam is unchanged from yesterday. We discussed long-term plans, will increase hydralazine up to 50 mg 3 times daily and add spironolactone 12.5 mg daily, his potassium is on the low side at 3.3 mmol/L. He will be evaluated as an outpatient for myocardial ischemia noninvasively. He already has an appointment scheduled in our office. Exam Physical Exam Vital Signs: Temp Pulse Resp BP Pulse Ox O2 Del Method O2 Flow Rate 97.9 F 89 18 143/66 H 94 L Nasal Cannula 2 05/12/24 08:00 05/12/24 16:00 05/12/24 16:00 05/12/24 16:00 05/12/24 16:00 05/12/24 16:00 05/12/24 16:00 FiO2 40 05/11/24 04:00 Const General: cooperative, comfortable and no acute distress Nutritional Appearance: overweight Orientation: alert, awake and oriented x3 HEENT Head: normal to inspection, normocephalic and atraumatic Ears: hearing grossly normal bilaterally Nose: external nose normal Face and sinus: normal facial exam Eyes Conjunctivae: conjunctivae normal Pupils: PERRL Neck Neck: normal visual inspection, trachea midline and supple Neck mass: No Thyroid: thyroid normal Carotids: normal carotid upstroke Resp Effort & Inspection: normal respiratory effort Auscultation: crackles and rales Cardio Jugular venous pressure: no JVD Palpation: normal PMI Rate: regular rate Rhythm: regular rhythm Heart Sounds: S1 normal and S2 normal GI Inspection: normal to inspection Palpation: soft and no hepatosplenomegaly Auscultation: normal bowel sounds Extrem General: no clubbing, cyanosis or edema Objective Labs 05/12/24 04:42 05/12/24 04:42 Labs: Laboratory Results - last 24 hr 05/11/24 05/12/24 05/12/24 20:18 02:43 04:42 Corrected WBC 6.1 Uncorrected WBC Count 6.1 RBC 2.87 L Hgb 9.1 L Hct 26.9 L MCV 93.9 MCH 31.8 MCHC 33.8 RDW 16.7 H Plt Count 115 L MPV 6.8 Neut % (Auto) 71.7 Lymph % (Auto) 16.4 [place] % (Auto) 6.8 Eos % (Auto) 4.5 Baso % (Auto) 0.6 Nucleat RBC Rel Count 0.1 Neut # (Auto) 4.3 Lymph # (Auto) 1.0 [place] # (Auto) 0.4 Eos # (Auto) 0.3 Baso # (Auto) 0.0 PHA Creatinine Clear 33.98 Sodium 143 Potassium 3.3 L Chloride 103 Carbon Dioxide 34.1 H Anion Gap 9.2 BUN 75 H Creatinine 1.85 H Est GFR (CKD-EPI) 36.821 Glucose 48 L* POC Glucose 218 93 POC Glucose Comment Glu2: cleaned meter Glu2: cleaned meter Calcium 8.6 05/12/24 05/12/24 05/12/24 05:18 07:23 11:27 Corrected WBC Uncorrected WBC Count RBC Hgb Hct MCV MCH MCHC RDW Plt Count MPV Neut % (Auto) Lymph % (Auto) [place] % (Auto) Eos % (Auto) Baso % (Auto) Nucleat RBC Rel Count Neut # (Auto) Lymph # (Auto) [place] # (Auto) Eos # (Auto) Baso # (Auto) PHA Creatinine Clear Sodium Potassium Chloride Carbon Dioxide Anion Gap BUN Creatinine Est GFR (CKD-EPI) Glucose POC Glucose 63 91 214 POC Glucose Comment Calcium 05/12/24 16:26 Corrected WBC Uncorrected WBC Count RBC Hgb Hct MCV MCH MCHC RDW Plt Count MPV Neut % (Auto) Lymph % (Auto) [place] % (Auto) Eos % (Auto) Baso % (Auto) Nucleat RBC Rel Count Neut # (Auto) Lymph # (Auto) [place] # (Auto) Eos # (Auto) Baso # (Auto) PHA Creatinine Clear Sodium Potassium Chloride Carbon Dioxide Anion Gap BUN Creatinine Est GFR (CKD-EPI) Glucose POC Glucose 287 POC Glucose Comment Calcium A&P - Cardiology (1) CHF (congestive heart failure): Assessment/Problem Details: He is known to have normal coronary angiogram in 2013, 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 Presently compensated on medical therapy. Ejection fraction yesterday quite low at 25% Plan: Continue to advance heart failure therapy with second tier regimen due to renal disease. He is responding well to diuretic therapy. Will evaluate as an outpatient with Lexiscan MPI for a potential ischemic component that has developed since 2013 which I doubt Code(s): I50.9 - Heart failure, unspecified (2) Sick sinus syndrome: Assessment/Problem Details: Status post pacemaker followed in the pacemaker clinic Plan: No device malfunction Code(s): I49.5 - Sick sinus syndrome (3) Pacemaker: Plan: Continue to follow in the pacemaker clinic Code(s): Z95.0 - Presence of cardiac pacemaker (4) Chronic kidney disease: Assessment/Problem Details: Kidney function has been stable for last 48 hours Plan: Avoid nephrotoxic medications Code(s): N18.9 - Chronic kidney disease, unspecified Plan 1. Continue with loop diuretics with close observation of renal function 2. Ischemic evaluation will be necessary but I believe invasive evaluation at the moment will carrysignificant risk of contrast-induced nephropathy, once stable Lexiscan MPI, the patient informed methat he had cardiac catheterizationat [facility] 13 years ago and was normal 3. Continue anticoagulation for now 4?titrate heart failure therapy as tolerated Documented By: Rupert Rey MD, [facility] 5 1733 Signed By: 05/12/24 1740 [facility]02-21-2025 Progress note Author Alexa Corona [facility] Note Date/Time May 12, 2024 2:50pm [facility] EN[facility] [address] [place] [address] Hospitalist Progress Note Signed Patient: Leighton Arciniega MR#: [id number] : 1945 Acct:[id number] Age/Sex: 78 / M Adm Date: 5 Loc: Room: [address] [place] [address] Type: ADM IN Attending Dr: Alexa Corona MD Copies to: ~ Date of Service: 05/12/2024 Subjective Subjective Narrative: Patient has been seen and examined today. F patient is sitting in the chair, oxygen titrated down to 2 L, clinically improving, shortness of breath improvingcough improving, denies any chest pain Mg drip off, currently on Bumex IV with good urine output Physical exam: General -awake, alert, oriented ?3, not in acute distress, sitting in the chair,mildly tachypneic but improved since admission Cardiovascular -S1 with S2, no murmurs, no rubs, no gallops Pulmonary -diminished breath sounds with crackles at the bases Gastrointestinal - abdomen is soft, nondistended, nontender, bowel sounds positive, there is no rigidity, no rebound Extremities edema resolved Neurological -no focal neurological dysfunction noted Laboratory work up and Imaging studies reviewed ekg monitor - reviewed Exam Physical Exam Vital Signs: Temp Pulse Resp BP Pulse Ox O2 Del Method O2 Flow Rate 36.6 C 80 18 136/65 99 Nasal Cannula 2 05/12/24 08:00 05/12/24 11:48 05/12/24 11:48 05/12/24 11:48 05/12/24 11:48 05/12/24 11:48 05/12/24 11:48 FiO2 40 05/11/24 04:00 Objective Lab Results 05/12/24 04:42 05/12/24 04:42 Meds Allergies and Active Meds Allergies fosinopril Allergy (Verified 05/09/24 19:59) SOB metoprolol Allergy (Verified 05/09/24 19:59) Hypotension strawberry Allergy (Verified 05/09/24 19:59) Rash Active Meds: Active Medications Generic Name Dose Route Start Last Admin Trade Name Freq PRN Reason Stop Dose Admin Acetaminophen 650 mg 05/09/24 20:01 05/10/24 16:07 Acetaminophen 325 Mg Tablet PO 05/09/25 20:00 650 mg Q4H PRN Administration Pain Scale 1 - 5 Acetaminophen 650 mg 05/10/24 17:08 Acetaminophen 325 Mg Tablet PO 05/10/25 17:07 Q6H PRN Pain Albuterol 2.5 mg 05/09/24 20:01 Albuterol Neb 2.5 Mg/3 Ml Vial.Neb INHALATION 05/09/25 20:00 Q2H PRN Shortness Of Breath Allopurinol 300 mg 05/10/24 09:00 05/12/24 08:48 Allopurinol 300 Mg Tablet PO 05/10/25 08:59 300 mg DAILY BRYAN Administration Apixaban 5 mg 05/10/24 09:00 05/12/24 08:48 Apixaban 5 Mg Tablet PO 05/10/25 08:59 5 mg BID BRYAN Administration Aspirin 81 mg 05/14/24 09:00 Aspirin 81 Mg Tablet. PO 05/14/25 08:59 Q7D BRYAN Atorvastatin Calcium 10 mg 05/10/24 09:00 05/12/24 08:48 Atorvastatin 10 Mg Tablet PO 05/10/25 08:59 10 mg DAILY BRYAN Administration Bumetanide 1 mg 05/11/24 16:00 05/12/24 08:48 Bumetanide 1 Mg/4 Ml Vial IV-PUSH 05/11/25 15:59 1 mg BID@0800,1600 BRYAN Administration Carvedilol 6.25 mg 05/10/24 09:00 05/12/24 08:48 Carvedilol 6.25 Mg Tablet PO 05/10/25 08:59 6.25 mg BID BRYAN Administration Dextrose 0 gm 05/09/24 21:07 Dextrose 50% In Water 25 Gm/50 Ml Syringe IV-PUSH 05/09/25 21:06 PRN PRN Hypoglycemia Docusate Sodium 200 mg 05/09/24 20:01 Docusate 100 Mg Capsule PO 05/09/25 20:00 BID PRN Constipation Finasteride 5 mg 05/10/24 09:00 05/12/24 08:52 Finasteride 5 Mg Tablet PO 05/10/25 08:59 5 mg DAILY BRYAN Administration Glucose 0 gm 05/09/24 21:07 Dextrose 40% Gel 15 Gm Tube PO 05/09/25 21:06 PRN PRN Hypoglycemia Hydralazine HCl 10 mg 05/09/24 20:01 Hydralazine 20 Mg/Ml Vial IV-PUSH 05/09/25 20:00 Q4H PRN if SBP > 185 Hydralazine HCl 50 mg 05/10/24 09:00 05/12/24 08:48 Hydralazine 50 Mg Tablet PO 05/10/25 08:59 50 mg BID BRYAN Administration Insulin Aspart 0 units 05/09/24 22:00 05/12/24 11:49 Insulin Aspart 300 Units/3 Ml SUBCUT 05/09/25 21:59 2 units TID.WM.HS BRYAN Administration Protocol Isosorbide Mononitrate 30 mg 05/11/24 09:00 05/12/24 08:48 Isosorbide Mononitrate 24hr Er 30 Mg Tab.Er.24h PO 05/11/25 08:59 30 mg QAM BRYAN Administration Pantoprazole Sodium 40 mg 05/10/24 09:00 05/12/24 08:48 Pantoprazole 40 Mg Tablet.Dr PO 05/10/25 08:59 40 mg DAILY BRYAN Administration Potassium Chloride 40 meq 05/12/24 14:16 Potassium Chloride Er 20 Meq Tab.Er.Prt PO 05/12/24 14:17 ONCE ONE Terazosin HCl 10 mg 05/09/24 22:00 05/11/24 20:59 Terazosin 5 Mg Capsule PO 05/09/25 21:59 10 mg HS BRYAN Administration A&P - Hospitalist Assessment/Plan (1) CHF (congestive heart failure): Plan 1. Acute hypoxic respiratory failure requiring BiPAP administration at [facility], improving with diuretic therapy, currently downgraded to 6 L nasal cannula, now to 4, I do suspect due to acute systolic congestive heart failure with ejection fraction 20% as per reports from [facility], echocardiogram pending For now I will continue with Bumex switch drip to intermittent, strict input andoutput, recheck kidney function in a.m., good negative urine output Consulted cardiology due to systolic heart failure No signs of acute coronary syndrome, troponins minimally elevated but flat 2. Kidney dysfunction, unclear baseline -per patient he does have underlying chronic kidney disease stage III, with baseline creatinine 1.8. Currently creatinine improving with diuresis Switch to Bumex 2 intermittent, strict input and output, avoid any nephrotoxic medication at this point Patient does have Gomez catheter, with very clear diluted urine noted in it 3. Hypertension continue with blood pressure medications, hold Norvasc Continue with hydralazine and Imdur 4. Atrial fibrillation, continue with Eliquis therapy, rate controlled, continue with beta-blockers H&H stable, blood-tinged sputum resolved, could be from the CHF, for now we willcontinue to observe if any hemoptysis noted will hold Eliquis Chest x-ray improved 5. Diabetes mellitus type 2, continue with home medications, hold p.o. meds, add sliding scale Hypoglycemia noted, insulin adjusted 6. DVT prophylaxis already on Eliquis Gomez catheter was placed for urinary retention during last admission at the [facility], he does have appointment with urologist, will keep it in Documented By: Alexa Corona MD 05/12/24 1608 Signed By: <Electronically signed by Alexa Corona MD> 05/12/24 7041 [facility] Work Phone: [phone]) [phone] [place] [address] Hospitalist Progress Note Signed Patient: Leighton Arciniega MR#: [id number] : 1945 Acct:[id number] Age/Sex: 78 / M Adm Date: 5 Loc: Room: [address] [place] [address] Type: ADM IN Attending Dr: Alexa Corona MD Copies to: ~ Date of Service: 05/12/2024 Subjective Subjective Narrative: Patient has been seen and examined today. F patient is sitting in the chair, oxygen titrated down to 2 L, clinically improving, shortness of breath improvingcough improving, denies any chest pain Mg drip off, currently on Bumex IV with good urine output Physical exam: General -awake, alert, oriented ?3, not in acute distress, sitting in the chair,mildly tachypneic but improved since admission Cardiovascular -S1 with S2, no murmurs, no rubs, no gallops Pulmonary -diminished breath sounds with crackles at the bases Gastrointestinal - abdomen is soft, nondistended, nontender, bowel sounds positive, there is no rigidity, no rebound Extremities edema resolved Neurological -no focal neurological dysfunction noted Laboratory work up and Imaging studies reviewed ekg monitor - reviewed Exam Physical Exam Vital Signs: Temp Pulse Resp BP Pulse Ox O2 Del Method O2 Flow Rate 36.6 C 80 18 136/65 99 Nasal Cannula 2 05/12/24 08:00 05/12/24 11:48 05/12/24 11:48 05/12/24 11:48 05/12/24 11:48 05/12/24 11:48 05/12/24 11:48 FiO2 40 05/11/24 04:00 Objective Lab Results 05/12/24 04:42 05/12/24 04:42 Meds Allergies and Active Meds Allergies fosinopril Allergy (Verified 05/09/24 19:59) SOB metoprolol Allergy (Verified 05/09/24 19:59) Hypotension strawberry Allergy (Verified 05/09/24 19:59) Rash Active Meds: Active Medications Generic Name Dose Route Start Last Admin Trade Name Freq PRN Reason Stop Dose Admin Acetaminophen 650 mg 05/09/24 20:01 05/10/24 16:07 Acetaminophen 325 Mg Tablet PO 05/09/25 20:00 650 mg Q4H PRN Administration Pain Scale 1 - 5 Acetaminophen 650 mg 05/10/24 17:08 Acetaminophen 325 Mg Tablet PO 05/10/25 17:07 Q6H PRN Pain Albuterol 2.5 mg 05/09/24 20:01 Albuterol Neb 2.5 Mg/3 Ml Vial.Neb INHALATION 05/09/25 20:00 Q2H PRN Shortness Of Breath Allopurinol 300 mg 05/10/24 09:00 05/12/24 08:48 Allopurinol 300 Mg Tablet PO 05/10/25 08:59 300 mg DAILY BRYAN Administration Apixaban 5 mg 05/10/24 09:00 05/12/24 08:48 Apixaban 5 Mg Tablet PO 05/10/25 08:59 5 mg BID BRYAN Administration Aspirin 81 mg 05/14/24 09:00 Aspirin 81 Mg Tablet. PO 05/14/25 08:59 Q7D BRYAN Atorvastatin Calcium 10 mg 05/10/24 09:00 05/12/24 08:48 Atorvastatin 10 Mg Tablet PO 05/10/25 08:59 10 mg DAILY BRYAN Administration Bumetanide 1 mg 05/11/24 16:00 05/12/24 08:48 Bumetanide 1 Mg/4 Ml Vial IV-PUSH 05/11/25 15:59 1 mg BID@0800,1600 BRYAN Administration Carvedilol 6.25 mg 05/10/24 09:00 05/12/24 08:48 Carvedilol 6.25 Mg Tablet PO 05/10/25 08:59 6.25 mg BID BRYAN Administration Dextrose 0 gm 05/09/24 21:07 Dextrose 50% In Water 25 Gm/50 Ml Syringe IV-PUSH 05/09/25 21:06 PRN PRN Hypoglycemia Docusate Sodium 200 mg 05/09/24 20:01 Docusate 100 Mg Capsule PO 05/09/25 20:00 BID PRN Constipation Finasteride 5 mg 05/10/24 09:00 05/12/24 08:52 Finasteride 5 Mg Tablet PO 05/10/25 08:59 5 mg DAILY BRYAN Administration Glucose 0 gm 05/09/24 21:07 Dextrose 40% Gel 15 Gm Tube PO 05/09/25 21:06 PRN PRN Hypoglycemia Hydralazine HCl 10 mg 05/09/24 20:01 Hydralazine 20 Mg/Ml Vial IV-PUSH 05/09/25 20:00 Q4H PRN if SBP > 185 Hydralazine HCl 50 mg 05/10/24 09:00 05/12/24 08:48 Hydralazine 50 Mg Tablet PO 05/10/25 08:59 50 mg BID BRYAN Administration Insulin Aspart 0 units 05/09/24 22:00 05/12/24 11:49 Insulin Aspart 300 Units/3 Ml SUBCUT 05/09/25 21:59 2 units TID.WM.HS BRYAN Administration Protocol Isosorbide Mononitrate 30 mg 05/11/24 09:00 05/12/24 08:48 Isosorbide Mononitrate 24hr Er 30 Mg Tab.Er.24h PO 05/11/25 08:59 30 mg QAM BRYAN Administration Pantoprazole Sodium 40 mg 05/10/24 09:00 05/12/24 08:48 Pantoprazole 40 Mg Tablet.Dr PO 05/10/25 08:59 40 mg DAILY BRYAN Administration Potassium Chloride 40 meq 05/12/24 14:16 Potassium Chloride Er 20 Meq Tab.Er.Prt PO 05/12/24 14:17 ONCE ONE Terazosin HCl 10 mg 05/09/24 22:00 05/11/24 20:59 Terazosin 5 Mg Capsule PO 05/09/25 21:59 10 mg HS BRYAN Administration A&P - Hospitalist Assessment/Plan (1) CHF (congestive heart failure): Plan 1. Acute hypoxic respiratory failure requiring BiPAP administration at [facility], improving with diuretic therapy, currently downgraded to 6 L nasal cannula, now to 4, I do suspect due to acute systolic congestive heart failure with ejection fraction 20% as per reports from [facility], e chocardiogram pending For now I will continue with Bumex switch drip to intermittent, strict input andoutput, recheck kidney function in a.m., good negative urine output Consulted cardiology due to systolic heart failure No signs of acute coronary syndrome, troponins minimally elevated but flat 2. Kidney dysfunction, unclear baseline -per patient he does have underlying chronic kidney diseasestage III, with baseline creatinine 1.8. Currently creatinine improving with diuresis Switch to Bumex 2 intermittent, strict input and output, avoid any nephrotoxic medication at this point Patient does have Gomez catheter, with very clear diluted urine noted in it 3. Hypertension continue with blood pressure medications, hold Norvasc Continue with hydralazine and Imdur 4. Atrial fibrillation, continue with Eliquis therapy, rate controlled, continue with beta-blockers H&H stable, blood-tinged sputum resolved, could be from the CHF, for now we willcontinue to observe if any hemoptysis noted will hold Eliquis Chest x-ray improved 5. Diabetes mellitus type 2, continue with home medications, hold p.o. meds, add sliding scale Hypoglycemia noted, insulin adjusted 6. DVT prophylaxis already on Eliquis Gomez catheter was placed for urinary retention during last admission at the [facility], he does haveappointment with urologist, will keep it in Documented By: Alexa Corona MD 05/12/24 1449 Signed By: 05/12/24 1450 [facility]02-20-2025 Progress note Author Alexa Corona [facility] Note Date/Time May 11, 2024 12:27pm [facility] EN[facility] [address] [place] [address] Hospitalist Progress Note Signed Patient: Leighton Arciniega MR#: [id number] : 1945 Acct:[id number] Age/Sex: 78 / M Adm Date: 5 Loc: Room: [address] [place] [address] Type: ADM IN Attending Dr: Alexa Corona MD Copies to: ~ Date of Service: 05/11/2024 Subjective Subjective Narrative: Patient has been seen and examined today. Feeling better, he still has some shortness of breath, cough improved, remains on 4 L, saturating high 90s, deniesany chest pain and palpitations any dizziness, feels that swelling in upper and lower extremity significantly improved Remains on Bumex drip 1 mg/h, with good urine output total -6.8 L negative balance over the last 24 hours Physical exam: General -awake, alert, oriented ?3, not in acute distress, sitting in the chair,mildly tachypneic but improved since admission Cardiovascular -S1 with S2, no murmurs, no rubs, no gallops Pulmonary -diminished breath sounds with crackles at the bases Gastrointestinal - abdomen is soft, nondistended, nontender, bowel sounds positive, there is no rigidity, no rebound Extremities edema resolved Neurological -no focal neurological dysfunction noted Laboratory work up and Imaging studies reviewed ekg monitor - reviewed Exam Physical Exam Vital Signs: Temp Pulse Resp BP Pulse Ox O2 Del Method O2 Flow Rate 36.6 C 89 18 147/70 H 97 Nasal Cannula 4 05/11/24 11:50 05/11/24 11:50 05/11/24 11:50 05/11/24 11:50 05/11/24 11:50 05/11/24 11:50 05/11/24 11:50 FiO2 40 05/11/24 04:00 Objective Lab Results 05/11/24 05:14 05/11/24 05:14 Meds Allergies and Active Meds Allergies fosinopril Allergy (Verified 05/09/24 19:59) SOB metoprolol Allergy (Verified 05/09/24 19:59) Hypotension strawberry Allergy (Verified 05/09/24 19:59) Rash Active Meds: Active Medications Generic Name Dose Route Start Last Admin Trade Name Freq PRN Reason Stop Dose Admin Acetaminophen 650 mg 05/09/24 20:01 05/10/24 16:07 Acetaminophen 325 Mg Tablet PO 05/09/25 20:00 650 mg Q4H PRN Administration Pain Scale 1 - 5 Acetaminophen 650 mg 05/10/24 17:08 Acetaminophen 325 Mg Tablet PO 05/10/25 17:07 Q6H PRN Pain Albuterol 2.5 mg 05/09/24 20:01 Albuterol Neb 2.5 Mg/3 Ml Vial.Neb INHALATION 05/09/25 20:00 Q2H PRN Shortness Of Breath Allopurinol 300 mg 05/10/24 09:00 05/11/24 08:32 Allopurinol 300 Mg Tablet PO 05/10/25 08:59 300 mg DAILY BRYAN Administration Apixaban 5 mg 05/10/24 09:00 05/11/24 08:32 Apixaban 5 Mg Tablet PO 05/10/25 08:59 5 mg BID BRYAN Administration Aspirin 81 mg 05/14/24 09:00 Aspirin 81 Mg Tablet. PO 05/14/25 08:59 Q7D BRYAN Atorvastatin Calcium 10 mg 05/10/24 09:00 05/11/24 08:32 Atorvastatin 10 Mg Tablet PO 05/10/25 08:59 10 mg DAILY BRYAN Administration Bumetanide 1 mg 05/11/24 16:00 Bumetanide 1 Mg/4 Ml Vial IV-PUSH 05/11/25 15:59 BID@0800,1600 BRYAN Carvedilol 6.25 mg 05/10/24 09:00 05/11/24 08:32 Carvedilol 6.25 Mg Tablet PO 05/10/25 08:59 6.25 mg BID BRYAN Administration Dextrose 0 gm 05/09/24 21:07 Dextrose 50% In Water 25 Gm/50 Ml Syringe IV-PUSH 05/09/25 21:06 PRN PRN Hypoglycemia Docusate Sodium 200 mg 05/09/24 20:01 Docusate 100 Mg Capsule PO 05/09/25 20:00 BID PRN Constipation Finasteride 5 mg 05/10/24 09:00 05/11/24 08:32 Finasteride 5 Mg Tablet PO 05/10/25 08:59 5 mg DAILY BRYAN Administration Glucose 0 gm 05/09/24 21:07 Dextrose 40% Gel 15 Gm Tube PO 05/09/25 21:06 PRN PRN Hypoglycemia Hydralazine HCl 10 mg 05/09/24 20:01 Hydralazine 20 Mg/Ml Vial IV-PUSH 05/09/25 20:00 Q4H PRN if SBP > 185 Hydralazine HCl 50 mg 05/10/24 09:00 05/11/24 08:32 Hydralazine 50 Mg Tablet PO 05/10/25 08:59 50 mg BID BRYAN Administration Insulin Aspart 0 units 05/09/24 22:00 05/11/24 11:40 Insulin Aspart 300 Units/3 Ml SUBCUT 05/09/25 21:59 4 units TID.WM.HS BRYAN Administration Protocol Isosorbide Mononitrate 30 mg 05/11/24 09:00 05/11/24 08:32 Isosorbide Mononitrate 24hr Er 30 Mg Tab.Er.24h PO 05/11/25 08:59 30 mg QAM BRYAN Administration Pantoprazole Sodium 40 mg 05/10/24 09:00 05/11/24 08:32 Pantoprazole 40 Mg Tablet.Dr PO 05/10/25 08:59 40 mg DAILY BRYAN Administration Terazosin HCl 10 mg 05/09/24 22:00 05/10/24 21:00 Terazosin 5 Mg Capsule PO 05/09/25 21:59 10 mg HS BRYAN Administration A&P - Hospitalist Assessment/Plan (1) CHF (congestive heart failure): Plan 1. Acute hypoxic respiratory failure requiring BiPAP administration at [facility], improving with diuretic therapy, currently downgraded to 6 L nasal cannula, now to 4, I do suspect due to acute systolic congestive heart failure with ejection fraction 20% as per reports from [facility], echocardiogram pending For now I will continue with Bumex switch drip to intermittent, strict input andoutput, recheck kidney function in a.m., good negative urine output Consulted cardiology due to systolic heart failure No signs of acute coronary syndrome, troponins minimally elevated but flat 2. Kidney dysfunction, unclear baseline -per patient he does have underlying chronic kidney disease stage III, with baseline creatinine 1.8. Currently creatinine improving with diuresis Switch to Bumex 2 intermittent, strict input and output, avoid any nephrotoxic medication at this point Patient does have Gomez catheter, with very clear diluted urine noted in it 3. Hypertension continue with blood pressure medications, hold Norvasc Continue with hydralazine and Imdur 4. Atrial fibrillation, continue with Eliquis therapy, rate controlled, continue with beta-blockers H&H stable, blood-tinged sputum resolved, could be from the CHF, for now we willcontinue to observe if any hemoptysis noted will hold Eliquis Repeat chest x-ray in a.m. 5. Diabetes mellitus type 2, continue with home medications, hold p.o. meds, add sliding scale Hypoglycemia noted, insulin adjusted 6. DVT prophylaxis already on Eliquis Documented By: Alexa Corona MD 05/11/24 1224 Signed By: <Electronically signed by Alexa Corona MD> 05/11/24 1227 [facility] Work Phone: 1(653) 653-457702-20-2025 Progress note Author Rupert Rey [facility] Note Date/Time May 11, 2024 12:22pm [facility] [address] [place] [address] Cardiology Progress Note Signed Patient: Leighton Arciniega MR#: [id number] : 1945 Acct:[id number] Age/Sex: 78 / M Adm Date: 5 Loc: 4 Room: 2T6448-5 Type: ADM IN Attending Dr: Alexa Corona MD Copies to: ~ Date of Service: 05/11/2024 Subjective Principal diagnosis: History of heart failure Interval history: Mr. Arciniega is a 78 year old male known to me. He is a former patient of Dr. Caal with a prior history of sick sinus syndrome status post permanent pacemaker implantation, paroxysmal atrial fibrillation presented to the hospitalwith worsening shortness of breath. Patient report over the last few weeks has been admitted twice to [place] and was treated for pneumonia. The patient denies cough or fever but describes significant shortness of breath. During hishospitalization apparently 2 echocardiogram was done the initial 1 showed normalejection fraction while the second 1 showed ejection fraction around 25%. The patient had no previous history of coronary artery disease. His previous ejection fraction based on echocardiogram remotely in our office was around 45%. He is known to have history of stage III chronic kidney disease with creatininearound 1.9. The patient transferred over here for further care and consideration for cardiac catheterization. The patient report his symptoms of heart failure is improving with diuresis. He denies chest pain. Cardiology follow-up 05/11/2024: Patient is more comfortable, no dyspnea at rest,no edema, rhythm is mostly AV paced. Limited echo is scheduled for today for updated ejection fraction for proper management. Tolerating heart failure therapy fairly well. Renal function is abnormal but stable Exam Physical Exam Vital Signs: Temp Pulse Resp BP Pulse Ox O2 Del Method O2 Flow Rate 97.9 F 89 18 147/70 H 97 Nasal Cannula 4 05/11/24 11:50 05/11/24 11:50 05/11/24 11:50 05/11/24 11:50 05/11/24 11:50 05/11/24 11:50 05/11/24 11:50 FiO2 40 05/11/24 04:00 Const General: cooperative, comfortable and no acute distress Nutritional Appearance: overweight Orientation: alert, awake and oriented x3 HEENT Head: normal to inspection, normocephalic and atraumatic Ears: hearing grossly normal bilaterally Nose: external nose normal Face and sinus: normal facial exam Eyes Conjunctivae: conjunctivae normal Pupils: PERRL Neck Neck: normal visual inspection, trachea midline and supple Neck mass: No Thyroid: thyroid normal Carotids: normal carotid upstroke Resp Effort & Inspection: normal respiratory effort Auscultation: crackles and rales Cardio Jugular venous pressure: no JVD Palpation: normal PMI Rate: regular rate Rhythm: regular rhythm Heart Sounds: S1 normal and S2 normal GI Inspection: normal to inspection Palpation: soft and no hepatosplenomegaly Auscultation: normal bowel sounds Extrem General: no clubbing, cyanosis or edema Objective Labs 05/11/24 05:14 05/11/24 05:14 Labs: Laboratory Results - last 24 hr 05/10/24 05/10/24 05/10/24 16:09 17:30 20:43 Corrected WBC Uncorrected WBC Count RBC Hgb Hct MCV MCH MCHC RDW Plt Count MPV Neut % (Auto) Lymph % (Auto) [place] % (Auto) Eos % (Auto) Baso % (Auto) Nucleat RBC Rel Count Neut # (Auto) Lymph # (Auto) [place] # (Auto) Eos # (Auto) Baso # (Auto) PHA Creatinine Clear Sodium Potassium Chloride Carbon Dioxide Anion Gap BUN Creatinine Est GFR (CKD-EPI) Glucose POC Glucose 106 150 POC Glucose Comment Calcium C. difficile Tox B Gene Negative 05/11/24 05/11/24 05/11/24 04:21 05:14 07:07 Corrected WBC 6.6 Uncorrected WBC Count 6.6 RBC 3.13 L Hgb 10.1 L Hct 29.6 L MCV 94.5 MCH 32.2 MCHC 34.1 RDW 16.7 H Plt Count 129 L MPV 6.5 L Neut % (Auto) 78.1 Lymph % (Auto) 11.7 [place] % (Auto) 6.8 Eos % (Auto) 3.3 Baso % (Auto) 0.1 Nucleat RBC Rel Count 0.1 Neut # (Auto) 5.2 Lymph # (Auto) 0.8 L [place] # (Auto) 0.5 Eos # (Auto) 0.2 Baso # (Auto) 0.0 PHA Creatinine Clear 29.40 Sodium 142 D Potassium 3.4 L Chloride 101 Carbon Dioxide 32.9 H Anion Gap 11.5 BUN 87 H Creatinine 2.31 H Est GFR (CKD-EPI) 28.208 Glucose 57 L POC Glucose 80 69 POC Glucose Comment Glu2: cleaned meter Calcium 9.2 C. difficile Tox B Gene 05/11/24 05/11/24 08:31 11:12 Corrected WBC Uncorrected WBC Count RBC Hgb Hct MCV MCH MCHC RDW Plt Count MPV Neut % (Auto) Lymph % (Auto) [place] % (Auto) Eos % (Auto) Baso % (Auto) Nucleat RBC Rel Count Neut # (Auto) Lymph # (Auto) [place] # (Auto) Eos # (Auto) Baso # (Auto) PHA Creatinine Clear Sodium Potassium Chloride Carbon Dioxide Anion Gap BUN Creatinine Est GFR (CKD-EPI) Glucose POC Glucose 168 333 POC Glucose Comment Glu2: cleaned meter Calcium C. difficile Tox B Gene A&P - Cardiology (1) CHF (congestive heart failure): Code(s): I50.9 - Heart failure, unspecified (2) Sick sinus syndrome: Code(s): I49.5 - Sick sinus syndrome (3) Pacemaker: Code(s): Z95.0 - Presence of cardiac pacemaker (4) Chronic kidney disease: Code(s): N18.9 - Chronic kidney disease, unspecified Plan 1. Continue with loop diuretics with close observation of renal function 2. Limited echo to reassess ejection fraction scheduled today 3. Ischemic evaluation will be necessary but I believe invasive evaluation at the moment will carry significant risk of contrast-induced nephropathy, once stable Lexiscan MPI, the patient informed me that he had cardiac catheterizationat [facility] 13 years ago and was normal 4. Continue anticoagulation for now 5. Continue current heart failure therapy Documented By: Rupert Rey MD, [facility] 5 1217 Signed By: <Electronically signed by [facility] Rupert Rey> 05/11/24 1222 [facility] Work Phone: 1(626) 176-491702-20-2025 [place] [address] Hospitalist Progress Note Signed Patient: Leighton Arciniega MR#: [id number] : 1945 Acct:[id number] Age/Sex: 78 / M Adm Date: 5 Loc: Room: [address] [place] [address] Type: ADM IN Attending Dr: Alexa Corona MD Copies to: ~ Date of Service: 05/11/2024 Subjective Subjective Narrative: Patient has been seen and examined today. Feeling better, he still has some shortness of breath, cough improved, remains on 4 L, saturating high 90s, deniesany chest pain and palpitations any dizziness, feels that swelling in upper and lower extremity significantly improved Remains on Bumex drip 1 mg/h, with good urine output total -6.8 L negative balance over the last 24hours Physical exam: General -awake, alert, oriented ?3, not in acute distress, sitting in the chair,mildly tachypneic but improved since admission Cardiovascular -S1 with S2, no murmurs, no rubs, no gallops Pulmonary -diminished breath sounds with crackles at the bases Gastrointestinal - abdomen is soft, nondistended, nontender, bowel sounds positive, there is no rigidity, no rebound Extremities edema resolved Neurological -no focal neurological dysfunction noted Laboratory work up and Imaging studies reviewed ekg monitor - reviewed Exam Physical Exam Vital Signs: Temp Pulse Resp BP Pulse Ox O2 Del Method O2 Flow Rate 36.6 C 89 18 147/70 H 97 Nasal Cannula 4 05/11/24 11:50 05/11/24 11:50 05/11/24 11:50 05/11/24 11:50 05/11/24 11:50 05/11/24 11:50 05/11/24 11:50 FiO2 40 05/11/24 04:00 Objective Lab Results 05/11/24 05:14 05/11/24 05:14 Meds Allergies and Active Meds Allergies fosinopril Allergy (Verified 05/09/24 19:59) SOB metoprolol Allergy (Verified 05/09/24 19:59) Hypotension strawberry Allergy (Verified 05/09/24 19:59) Rash Active Meds: Active Medications Generic Name Dose Route Start Last Admin Trade Name Freq PRN Reason Stop Dose Admin Acetaminophen 650 mg 05/09/24 20:01 05/10/24 16:07 Acetaminophen 325 Mg Tablet PO 05/09/25 20:00 650 mg Q4H PRN Administration Pain Scale 1 - 5 Acetaminophen 650 mg 05/10/24 17:08 Acetaminophen 325 Mg Tablet PO 05/10/25 17:07 Q6H PRN Pain Albuterol 2.5 mg 05/09/24 20:01 Albuterol Neb 2.5 Mg/3 Ml Vial.Neb INHALATION 05/09/25 20:00 Q2H PRN Shortness Of Breath Allopurinol 300 mg 05/10/24 09:00 05/11/24 08:32 Allopurinol 300 Mg Tablet PO 05/10/25 08:59 300 mg DAILY BRYAN Administration Apixaban 5 mg 05/10/24 09:00 05/11/24 08:32 Apixaban 5 Mg Tablet PO 05/10/25 08:59 5 mg BID BRYAN Administration Aspirin 81 mg 05/14/24 09:00 Aspirin 81 Mg Tablet.Dr PO 05/14/25 08:59 Q7D BRYAN Atorvastatin Calcium 10 mg 05/10/24 09:00 05/11/24 08:32 Atorvastatin 10 Mg Tablet PO 05/10/25 08:59 10 mg DAILY BRYAN Administration Bumetanide 1 mg 05/11/24 16:00 Bumetanide 1 Mg/4 Ml Vial IV-PUSH 05/11/25 15:59 BID@0800,1600 BRYAN Carvedilol 6.25 mg 05/10/24 09:00 05/11/24 08:32 Carvedilol 6.25 Mg Tablet PO 05/10/25 08:59 6.25 mg BID BRYAN Administration Dextrose 0 gm 05/09/24 21:07 Dextrose 50% In Water 25 Gm/50 Ml Syringe IV-PUSH 05/09/25 21:06 PRN PRN Hypoglycemia Docusate Sodium 200 mg 05/09/24 20:01 Docusate 100 Mg Capsule PO 05/09/25 20:00 BID PRN Constipation Finasteride 5 mg 05/10/24 09:00 05/11/24 08:32 Finasteride 5 Mg Tablet PO 05/10/25 08:59 5 mg DAILY BRYAN Administration Glucose 0 gm 05/09/24 21:07 Dextrose 40% Gel 15 Gm Tube PO 05/09/25 21:06 PRN PRN Hypoglycemia Hydralazine HCl 10 mg 05/09/24 20:01 Hydralazine 20 Mg/Ml Vial IV-PUSH 05/09/25 20:00 Q4H PRN if SBP > 185 Hydralazine HCl 50 mg 05/10/24 09:00 05/11/24 08:32 Hydralazine 50 Mg Tablet PO 05/10/25 08:59 50 mg BID BRYAN Administration Insulin Aspart 0 units 05/09/24 22:00 05/11/24 11:40 Insulin Aspart 300 Units/3 Ml SUBCUT 05/09/25 21:59 4 units TID.WM.HS BRYAN Administration Protocol Isosorbide Mononitrate 30 mg 05/11/24 09:00 05/11/24 08:32 Isosorbide Mononitrate 24hr Er 30 Mg Tab.Er.24h PO 05/11/25 08:59 30 mg QAM BRYAN Administration Pantoprazole Sodium 40 mg 05/10/24 09:00 05/11/24 08:32 Pantoprazole 40 Mg Tablet.Dr PO 05/10/25 08:59 40 mg DAILY BRYAN Administration Terazosin HCl 10 mg 05/09/24 22:00 05/10/24 21:00 Terazosin 5 Mg Capsule PO 05/09/25 21:59 10 mg HS BRYAN Administration A&P - Hospitalist Assessment/Plan (1) CHF (congestive heart failure): Plan 1. Acute hypoxic respiratory failure requiring BiPAP administration at [facility], improving with diuretic therapy, currently downgraded to 6 L nasal cannula, now to 4, I do suspect due to acute systolic congestive heart failure with ejection fraction 20% as per reports from [facility], e chocardiogram pending For now I will continue with Bumex switch drip to intermittent, strict input andoutput, recheck kidney function in a.m., good negative urine output Consulted cardiology due to systolic heart failure No signs of acute coronary syndrome, troponins minimally elevated but flat 2. Kidney dysfunction, unclear baseline -per patient he does have underlying chronic kidney diseasestage III, with baseline creatinine 1.8. Currently creatinine improving with diuresis Switch to Bumex 2 intermittent, strict input and output, avoid any nephrotoxic medication at this point Patient does have Gomez catheter, with very clear diluted urine noted in it 3. Hypertension continue with blood pressure medications, hold Norvasc Continue with hydralazine and Imdur 4. Atrial fibrillation, continue with Eliquis therapy, rate controlled, continue with beta-blockers H&H stable, blood-tinged sputum resolved, could be from the CHF, for now we willcontinue to observe if any hemoptysis noted will hold Eliquis Repeat chest x-ray in a.m. 5. Diabetes mellitus type 2, continue with home medications, hold p.o. meds, add sliding scale Hypoglycemia noted, insulin adjusted 6. DVT prophylaxis already on Eliquis Documented By: Alexa Corona MD 05/11/24 1224 Signed By: 05/11/24 1227 [facility]02-20-[address] [address] Cardiology Progress Note Signed Patient: Leighton Arciniega MR#: [id number] : 1945 Acct:[id number] Age/Sex: 78 / M Adm Date: 5 Loc: Room: [address] [place] [address] Type: ADM IN Attending Dr: Alexa Corona MD Copies to: ~ Date of Service: 05/11/2024 Subjective Principal diagnosis: History of heart failure Interval history: Mr. Arciniega is a 78 year old male known to me. He is a former patient of Dr. Caal with a prior history of sick sinus syndrome status post permanent pacemaker implantation, paroxysmal atrial fibrillation presented to the hospitalwith worsening shortness of breath. Patient report over the last few weeks has been admitted twice to [place] and was treated for pneumonia. The patient denies cough or fever but describes significant shortness of breath. During hishospitalization apparently 2 echocardiogram was done the initial 1 showed normalejection fraction while the second 1 showed ejection fraction around 25%. The patient had no previous history of coronary artery disease. His previous ejection fraction based on echocardiogram remotely in our office was around 45%. He is known to have history of stage III chronic kidney disease with creatininearound 1.9. The patient transferred over here for further care and consideration for cardiac catheterization. The patient report his symptoms of heart failure is improving with diuresis. He denies chest pain. Cardiology follow-up 05/11/2024: Patient is more comfortable, no dyspnea at rest,no edema, rhythm ismostly AV paced. Limited echo is scheduled for today for updated ejection fraction for proper management. Tolerating heart failure therapy fairly well. Renal function is abnormal but stable Exam Physical Exam Vital Signs: Temp Pulse Resp BP Pulse Ox O2 Del Method O2 Flow Rate 97.9 F 89 18 147/70 H 97 Nasal Cannula 4 05/11/24 11:50 05/11/24 11:50 05/11/24 11:50 05/11/24 11:50 05/11/24 11:50 05/11/24 11:50 05/11/24 11:50 FiO2 40 05/11/24 04:00 Const General: cooperative, comfortable and no acute distress Nutritional Appearance: overweight Orientation: alert, awake and oriented x3 HEENT Head: normal to inspection, normocephalic and atraumatic Ears: hearing grossly normal bilaterally Nose: external nose normal Face and sinus: normal facial exam Eyes Conjunctivae: conjunctivae normal Pupils: PERRL Neck Neck: normal visual inspection, trachea midline and supple Neck mass: No Thyroid: thyroid normal Carotids: normal carotid upstroke Resp Effort & Inspection: normal respiratory effort Auscultation: crackles and rales Cardio Jugular venous pressure: no JVD Palpation: normal PMI Rate: regular rate Rhythm: regular rhythm Heart Sounds: S1 normal and S2 normal GI Inspection: normal to inspection Palpation: soft and no hepatosplenomegaly Auscultation: normal bowel sounds Extrem General: no clubbing, cyanosis or edema Objective Labs 05/11/24 05:14 05/11/24 05:14 Labs: Laboratory Results - last 24 hr 05/10/24 05/10/24 05/10/24 16:09 17:30 20:43 Corrected WBC Uncorrected WBC Count RBC Hgb Hct MCV MCH MCHC RDW Plt Count MPV Neut % (Auto) Lymph % (Auto) [place] % (Auto) Eos % (Auto) Baso % (Auto) Nucleat RBC Rel Count Neut # (Auto) Lymph # (Auto) [place] # (Auto) Eos # (Auto) Baso # (Auto) PHA Creatinine Clear Sodium Potassium Chloride Carbon Dioxide Anion Gap BUN Creatinine Est GFR (CKD-EPI) Glucose POC Glucose 106 150 POC Glucose Comment Calcium C. difficile Tox B Gene Negative 05/11/24 05/11/24 05/11/24 04:21 05:14 07:07 Corrected WBC 6.6 Uncorrected WBC Count 6.6 RBC 3.13 L Hgb 10.1 L Hct 29.6 L MCV 94.5 MCH 32.2 MCHC 34.1 RDW 16.7 H Plt Count 129 L MPV 6.5 L Neut % (Auto) 78.1 Lymph % (Auto) 11.7 [place] % (Auto) 6.8 Eos % (Auto) 3.3 Baso % (Auto) 0.1 Nucleat RBC Rel Count 0.1 Neut # (Auto) 5.2 Lymph # (Auto) 0.8 L [place] # (Auto) 0.5 Eos # (Auto) 0.2 Baso # (Auto) 0.0 PHA Creatinine Clear 29.40 Sodium 142 D Potassium 3.4 L Chloride 101 Carbon Dioxide 32.9 H Anion Gap 11.5 BUN 87 H Creatinine 2.31 H Est GFR (CKD-EPI) 28.208 Glucose 57 L POC Glucose 80 69 POC Glucose Comment Glu2: cleaned meter Calcium 9.2 C. difficile Tox B Gene 05/11/24 05/11/24 08:31 11:12 Corrected WBC Uncorrected WBC Count RBC Hgb Hct MCV MCH MCHC RDW Plt Count MPV Neut % (Auto) Lymph % (Auto) [place] % (Auto) Eos % (Auto) Baso % (Auto) Nucleat RBC Rel Count Neut # (Auto) Lymph # (Auto) [place] # (Auto) Eos # (Auto) Baso # (Auto) PHA Creatinine Clear Sodium Potassium Chloride Carbon Dioxide Anion Gap BUN Creatinine Est GFR (CKD-EPI) Glucose POC Glucose 168 333 POC Glucose Comment Glu2: cleaned meter Calcium C. difficile Tox B Gene A&P - Cardiology (1) CHF (congestive heart failure): Code(s): I50.9 - Heart failure, unspecified (2) Sick sinus syndrome: Code(s): I49.5 - Sick sinus syndrome (3) Pacemaker: Code(s): Z95.0 - Presence of cardiac pacemaker (4) Chronic kidney disease: Code(s): N18.9 - Chronic kidney disease, unspecified Plan 1. Continue with loop diuretics with close observation of renal function 2. Limited echo to reassess ejection fraction scheduled today 3. Ischemic evaluation will be necessary but I believe invasive evaluation at the moment will carrysignificant risk of contrast-induced nephropathy, once stable Lexiscan MPI, the patient informed methat he had cardiac catheterizationat [facility] 13 years ago and was normal 4. Continue anticoagulation for now 5. Continue current heart failure therapy Documented By: Rupert Rey MD, [facility] 5 1217 Signed By: 05/11/24 1222 [facility]02-19-2025 Consult note Author Osvaldo Dickinson [facility] Note Date/Time May 10, 2024 6:30pm [facility] [address] [place] [address] Cardiology Consult Note Signed Patient: Leighton Arciniega MR#: [id number] : 1945 Acct:[id number] Age/Sex: 78 / M Adm Date: 5 Loc: 4 Room: [address] [place] [address] Type: ADM IN Attending Dr: Alexa Corona MD Copies to: MD Osvaldo Love MD Ruta Semaskiene, MD~ Cardiology HPI History of Present Illness Consult Date: 05/10/24 Reason for Consult: Cardiac consultation requested for evaluation for increasing shortness of breathand heart failure HPI: Mr. Arciniega is a 78 year old male known to me. He is a former patient of Dr. Caal with a prior history of sick sinus syndrome status post permanent pacemaker implantation, paroxysmal atrial fibrillation presented to the hospitalwith worsening shortness of breath. Patient report over the last few weeks has been admitted twice to [place] and was treated for pneumonia. The patient denies cough or fever but describes significant shortness of breath. During hishospitalization apparently 2 echocardiogram was done the initial 1 showed normalejection fraction while the second 1 showed ejection fraction around 25%. The patient had no previous history of coronary artery disease. His previous ejection fraction based on echocardiogram remotely in our office was around 45%. He is known to have history of stage III chronic kidney disease with creatininearound 1.9. The patient transferred over here for further care and consideration for cardiac catheterization. The patient report his symptoms of heart failure is improving with diuresis. He denies chest pain. Review of Systems Review of Systems All other systems reviewed & are negative unless noted below or in HPI Review of systems: Patient reports shortness of breath, orthopnea. He denies chest pain. 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 HTN (hypertension) Chronic indwelling Gomez catheter BPH (benign prostatic hyperplasia) CKD (chronic kidney disease), stage III Diabetes Afib Pacemaker CHF (congestive heart failure) Surgical History Hx of tonsillectomy History of nasal surgery H/O left knee surgery Family History Mother CHF (congestive heart failure) Diabetes Myocardial infarction Heart disease Father CKD (chronic kidney disease) Sister Liver failure Brother CHF (congestive heart failure) Brother Heart disease Social History Smoking Status: Former smoker Tobacco Type: cigarettes Substance Use Type: None Meds Medications and Allergies Allergies fosinopril Allergy (Verified 05/09/24 19:59) SOB metoprolol Allergy (Verified 05/09/24 19:59) Hypotension strawberry Allergy (Verified 05/09/24 19:59) Rash Home Medications acetaminophen 500 mg capsule 1,000 mg PO Q6HR PRN fever or pain 05/09/24 [History Confirmed 05/09/24] albuterol sulfate 2.5 mg/3 mL (0.083 %) solution for nebulization 2.5 mg inhalation Q4HR PRN shortness of breath or wheezing 05/09/24 [History Confirmed 05/09/24] allopurinol 300 mg tablet 300 mg PO DAILY 05/09/24 [History Confirmed 05/09/24] amlodipine 10 mg tablet 10 mg PO DAILY 05/09/24 [History Confirmed 05/09/24] apixaban 5 mg tablet (Eliquis) 5 mg PO Q12HR 05/09/24 [History Confirmed 05/09/24] aspirin 81 mg capsule 81 mg PO .weekly 05/09/24 [History Confirmed 05/09/24] calcium 315 mg (as citrate)-vitamin D3 5 mcg (200 unit) tablet 1 tab PO DAILY 05/09/24 [History Confirmed 05/09/24] carvedilol 6.25 mg tablet (Coreg) 6.25 mg PO BID 05/09/24 [History Confirmed 05/09/24] finasteride 5 mg tablet 5 mg PO DAILY 05/09/24 [History Confirmed 05/09/24] fluconazole 200 mg tablet 400 mg PO DAILY 05/09/24 [History Confirmed 05/09/24] furosemide 20 mg tablet 20 mg PO BID 05/09/24 [History Confirmed 05/09/24] glipizide 10 mg tablet 10 mg PO BID 05/09/24 [History Confirmed 05/09/24] hydralazine 50 mg tablet 50 mg PO TID 05/09/24 [History Confirmed 05/09/24] insulin glargine 100 unit/mL (3 mL) subcutaneous pen 24 unit subcut BID 05/09/24[History Confirmed 05/09/24] levofloxacin 750 mg tablet 750 mg PO DAILY 05/09/24 [History Confirmed 05/09/24] mecobalamin (vitamin B12) 1,000 mcg chewable tablet 1,000 mcg PO DAILY 05/09/24 [History Confirmed 05/09/24] multivitamin (Daily Multi-Vitamin tablet) 1 tab PO DAILY 05/09/24 [History Confirmed 05/09/24] omeprazole 20 mg capsule,delayed release 20 mg PO DAILY 05/09/24 [History Confirmed 05/09/24] prednisone 10 mg tablet 30 mg PO DAILY 05/09/24 [History Confirmed 05/09/24] semaglutide 1 mg/dose (4 mg/3 mL) subcutaneous pen injector (Ozempic) 1 mg subcut QWEEK 05/09/24 [History Confirmed 05/09/24] simvastatin 20 mg tablet 20 mg PO DAILY 05/09/24 [History Confirmed 05/09/24] spironolactone 25 mg tablet 25 mg PO DAILY 05/09/24 [History Confirmed 05/09/24] terazosin 10 mg capsule 10 mg PO HS 05/09/24 [History Confirmed 05/09/24] Exam Physical Exam Vital Signs: Temp Pulse Resp BP Pulse Ox O2 Del Method O2 Flow Rate 97.4 F L 68 20 130/62 94 L Nasal Cannula 4 05/10/24 16:00 05/10/24 16:00 05/10/24 16:00 05/10/24 16:00 05/10/24 16:00 05/10/24 16:00 05/10/24 16:00 FiO2 40 05/10/24 04:34 Const General: cooperative, comfortable, no acute distress and well developed HEENT Head: atraumatic Mouth: oral mucosae normal Eyes General: appearance normal, both eyes and all related structures Pupils: PERRL Neck Neck: normal visual inspection, supple and no lymphadenopathy noted Neck mass: No Thyroid: thyroid normal Carotids: normal carotid upstroke Chest Chest palpation & inspection: normal inspection of the chest Resp Auscultation: rales and rhonchi Cardio Palpation: normal PMI Rate: regular rate Rhythm: regular rhythm Heart Sounds: S1 normal, S2 normal and murmur systolic II/ GI Palpation: soft and no hepatosplenomegaly Percussion: normal to percussion Auscultation: normal bowel sounds Skin General: no rashes or lesions noted and dry skin Neuro General: patient alert, patient awake, patient oriented x3, tone normal and moves all extremities Extrem General: full ROM, capillary refill normal and no clubbing, cyanosis or edema Psych Mental Status: mental status grossly normal Results - Cardiology Labs Narrative: Chest x-ray suggestive of congestive heart failure 05/10/24 04:46 05/10/24 04:46 Lab results: Cardiac Enzymes 05/09/24 Range/Units 20:14 B-Natriuretic Peptide 1940.0 H (5-100) pg/mL Lipids 05/10/24 Range/Units 04:46 Triglycerides 57 (0-149) mg/dL Cholesterol 139 L (140-200) mg/dL HDL Cholesterol 65 (23-92) mg/dL Cholesterol/HDL Ratio 2.1 (<5.0) CBC 05/10/24 Range/Units 04:46 RBC 2.90 L (3.90-5.60) x10E6/uL Hgb 9.4 L (13.0-17.0) g/dL Hct 27.5 L (38.8-50.0) % Plt Count 124 L (150-450) x10E3/uL Neut # (Auto) 8.5 H (1.8-7.7) x10E3/uL Lymph # (Auto) 0.6 L (1.00-4.8) x10E3/uL [place] # (Auto) 0.3 (0.0-0.8) x10E3/uL Eos # (Auto) 0.0 (0.0-0.45) x10E3/uL Baso # (Auto) 0.1 (0.0-0.2) x10E3/uL Comprehensive Metabolic Panel 05/10/24 Range/Units 04:46 Sodium 136 (136-145) mmol/L Potassium 4.2 (3.5-5.1) mmol/L Chloride 101 (98-107) mmol/L Carbon Dioxide 26.6 (21.0-31.0) mmol/L BUN 85 H (7-25) mg/dL Creatinine 2.26 H (0.70-1.30) mg/dL Glucose 131 H (70-100) mg/dL Calcium 8.9 (8.6-10.3) mg/dL Intake and Output 05/10/24 05/10/24 05/10/24 07:59 15:59 23:59 Intake Total 50 / 1420 650 / 1420 720 / 1420 Output Total 2350 / 5400 1550 / 5400 1500 / 5400 Balance -2300 / -3980 -900 / -3980 -780 / -3980 Intake: Oral 50 / 1420 650 / 1420 720 / 1420 Output: Urine Amount (Catheter) 2350 / 5400 1550 / 5400 1500 / 5400 Urethral (Gomez) 2350 / 5400 1550 / 5400 1500 / 5400 Other: # Bowel Movements 0 0 2 Weight 95.9 kg Date of Last Bowel Movement 05/09/24 05/09/24 Patient Weight 05/10/24 23:59 Weight 95.9 kg EKG Interpretations EKG Attestation EKG: I reviewed this ECG and interpreted as documented below: (LV sequential paced rhythm) A&P - Cardiology (1) CHF (congestive heart failure): Code(s): I50.9 - Heart failure, unspecified Plan Assessment 1. Progressive shortness of breath appears due to heart failure. Chart suggestto recent echocardiogram at [facility] initially showed ejection fraction around 55% while repeat few days later showed ejection fraction 25% I do not have the images to review historically the patient ejection fraction was in the past around 45% 2. Sick sinus syndrome with permanent pacemaker implantation 3. Paroxysmal atrial fibrillation 4. Essential hypertension 5. Chronic kidney disease of stage IV 6. Moderate risk for ischemic heart disease Plan 1. Continue with loop diuretics with close observation of renal function 2. I will repeat his echocardiogram to assess the accuracy of previous interpretation 3. Ischemic evaluation will be necessary but I believe invasive evaluation at the moment will carry significant risk of contrast-induced nephropathy 4. Continue anticoagulation for now 5. Will continue Coreg and hydralazine/nitrate combination for management of heart failure Documented By: Osvaldo Dickinson MD 05/10/24 9056 Signed By: <Electronically signed by MD Osvaldo Dickinson> 05/10/24 1830 [facility] Work Phone: [phone] [place] [address] Cardiology Consult Note Signed Patient: Leighton Arciniega MR#: [id number] : 1945 Acct:[id number] Age/Sex: 78 / M Adm Date: 5 Loc: Room: [address] [place] [address] Type: ADM IN Attending Dr: Alexa Corona MD Copies to: MD Osvaldo Love MD Ruta Semaskiene, MD~ Cardiology HPI History of Present Illness Consult Date: 05/10/24 Reason for Consult: Cardiac consultation requested for evaluation for increasing shortness of breathand heart failure HPI: Mr. Arciniega is a 78 year old male known to me. He is a former patient of Dr. Caal with a prior history of sick sinus syndrome status post permanent pacemaker implantation, paroxysmal atrial fibrillation presented to the hospitalwith worsening shortness of breath. Patient report over the last few weeks has been admitted twice to [facility] and was treated for pneumonia. The patient denies cough or fever but describes significant shortness of breath. During hishospitalization apparently 2 echocardiogram was done the initial 1 showed normalejection fraction while the second 1 showed ejection fraction around 25%. The patient had no previous history of coronary artery disease. His previous ejection fraction based on echocardiogram remotely in our office was around 45%. He is known to have history of stage III chronic kidney disease with creatininearound 1.9. The patient transferred over here for further care and consideration for cardiac catheterization. The patient report his symptoms of heart failure is improving with diuresis. He denies chest pain. Review of Systems Review of Systems All other systems reviewed & are negative unless noted below or in HPI Review of systems: Patient reports shortness of breath, orthopnea. He denies chest pain. 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 HTN (hypertension) Chronic indwelling Gomez catheter BPH (benign prostatic hyperplasia) CKD (chronic kidney disease), stage III Diabetes Afib Pacemaker CHF (congestive heart failure) Surgical History Hx of tonsillectomy History of nasal surgery H/O left knee surgery Family History Mother CHF (congestive heart failure) Diabetes Myocardial infarction Heart disease Father CKD (chronic kidney disease) Sister Liver failure Brother CHF (congestive heart failure) Brother Heart disease Social History Smoking Status: Former smoker Tobacco Type: cigarettes Substance Use Type: None Meds Medications and Allergies Allergies fosinopril Allergy (Verified 05/09/24 19:59) SOB metoprolol Allergy (Verified 05/09/24 19:59) Hypotension strawberry Allergy (Verified 05/09/24 19:59) Rash Home Medications acetaminophen 500 mg capsule 1,000 mg PO Q6HR PRN fever or pain 05/09/24 [History Confirmed 05/09/24] albuterol sulfate 2.5 mg/3 mL (0.083 %) solution for nebulization 2.5 mg inhalation Q4HR PRN shortness of breath or wheezing 05/09/24 [History Confirmed 05/09/24] allopurinol 300 mg tablet 300 mg PO DAILY 05/09/24 [History Confirmed 05/09/24] amlodipine 10 mg tablet 10 mg PO DAILY 05/09/24 [History Confirmed 05/09/24] apixaban 5 mg tablet (Eliquis) 5 mg PO Q12HR 05/09/24 [History Confirmed 05/09/24] aspirin 81 mg capsule 81 mg PO .weekly 05/09/24 [History Confirmed 05/09/24] calcium 315 mg (as citrate)-vitamin D3 5 mcg (200 unit) tablet 1 tab PO DAILY 05/09/24 [History Confirmed 05/09/24] carvedilol 6.25 mg tablet (Coreg) 6.25 mg PO BID 05/09/24 [History Confirmed 05/09/24] finasteride 5 mg tablet 5 mg PO DAILY 05/09/24 [History Confirmed 05/09/24] fluconazole 200 mg tablet 400 mg PO DAILY 05/09/24 [History Confirmed 05/09/24] furosemide 20 mg tablet 20 mg PO BID 05/09/24 [History Confirmed 05/09/24] glipizide 10 mg tablet 10 mg PO BID 05/09/24 [History Confirmed 05/09/24] hydralazine 50 mg tablet 50 mg PO TID 05/09/24 [History Confirmed 05/09/24] insulin glargine 100 unit/mL (3 mL) subcutaneous pen 24 unit subcut BID 05/09/24[History Confirmed 05/09/24] levofloxacin 750 mg tablet 750 mg PO DAILY 05/09/24 [History Confirmed 05/09/24] mecobalamin (vitamin B12) 1,000 mcg chewable tablet 1,000 mcg PO DAILY 05/09/24 [History Confirmed 05/09/24] multivitamin (Daily Multi-Vitamin tablet) 1 tab PO DAILY 05/09/24 [History Confirmed 05/09/24] omeprazole 20 mg capsule,delayed release 20 mg PO DAILY 05/09/24 [History Confirmed 05/09/24] prednisone 10 mg tablet 30 mg PO DAILY 05/09/24 [History Confirmed 05/09/24] semaglutide 1 mg/dose (4 mg/3 mL) subcutaneous pen injector (Ozempic) 1 mg subcut QWEEK 05/09/24 [History Confirmed 05/09/24] simvastatin 20 mg tablet 20 mg PO DAILY 05/09/24 [History Confirmed 05/09/24] spironolactone 25 mg tablet 25 mg PO DAILY 05/09/24 [History Confirmed 05/09/24] terazosin 10 mg capsule 10 mg PO HS 05/09/24 [History Confirmed 05/09/24] Exam Physical Exam Vital Signs: Temp Pulse Resp BP Pulse Ox O2 Del Method O2 Flow Rate 97.4 F L 68 20 130/62 94 L Nasal Cannula 4 05/10/24 16:00 05/10/24 16:00 05/10/24 16:00 05/10/24 16:00 05/10/24 16:00 05/10/24 16:00 05/10/24 16:00 FiO2 40 05/10/24 04:34 Const General: cooperative, comfortable, no acute distress and well developed HEENT Head: atraumatic Mouth: oral mucosae normal Eyes General: appearance normal, both eyes and all related structures Pupils: PERRL Neck Neck: normal visual inspection, supple and no lymphadenopathy noted Neck mass: No Thyroid: thyroid normal Carotids: normal carotid upstroke Chest Chest palpation & inspection: normal inspection of the chest Resp Auscultation: rales and rhonchi Cardio Palpation: normal PMI Rate: regular rate Rhythm: regular rhythm Heart Sounds: S1 normal, S2 normal and murmur systolic II/ GI Palpation: soft and no hepatosplenomegaly Percussion: normal to percussion Auscultation: normal bowel sounds Skin General: no rashes or lesions noted and dry skin Neuro General: patient alert, patient awake, patient oriented x3, tone normal and moves all extremities Extrem General: full ROM, capillary refill normal and no clubbing, cyanosis or edema Psych Mental Status: mental status grossly normal Results - Cardiology Labs Narrative: Chest x-ray suggestive of congestive heart failure 05/10/24 04:46 05/10/24 04:46 Lab results: Cardiac Enzymes 05/09/24 Range/Units 20:14 B-Natriuretic Peptide 1940.0 H (5-100) pg/mL Lipids 05/10/24 Range/Units 04:46 Triglycerides 57 (0-149) mg/dL Cholesterol 139 L (140-200) mg/dL HDL Cholesterol 65 (23-92) mg/dL Cholesterol/HDL Ratio 2.1 (<5.0) CBC 05/10/24 Range/Units 04:46 RBC 2.90 L (3.90-5.60) x10E6/uL Hgb 9.4 L (13.0-17.0) g/dL Hct 27.5 L (38.8-50.0) % Plt Count 124 L (150-450) x10E3/uL Neut # (Auto) 8.5 H (1.8-7.7) x10E3/uL Lymph # (Auto) 0.6 L (1.00-4.8) x10E3/uL [place] # (Auto) 0.3 (0.0-0.8) x10E3/uL Eos # (Auto) 0.0 (0.0-0.45) x10E3/uL Baso # (Auto) 0.1 (0.0-0.2) x10E3/uL Comprehensive Metabolic Panel 05/10/24 Range/Units 04:46 Sodium 136 (136-145) mmol/L Potassium 4.2 (3.5-5.1) mmol/L Chloride 101 (98-107) mmol/L Carbon Dioxide 26.6 (21.0-31.0) mmol/L BUN 85 H (7-25) mg/dL Creatinine 2.26 H (0.70-1.30) mg/dL Glucose 131 H (70-100) mg/dL Calcium 8.9 (8.6-10.3) mg/dL Intake and Output 05/10/24 05/10/24 05/10/24 07:59 15:59 23:59 Intake Total 50 / 1420 650 / 1420 720 / 1420 Output Total 2350 / 5400 1550 / 5400 1500 / 5400 Balance -2300 / -3980 -900 / -3980 -780 / -3980 Intake: Oral 50 / 1420 650 / 1420 720 / 1420 Output: Urine Amount (Catheter) 2350 / 5400 1550 / 5400 1500 / 5400 Urethral (Gomez) 2350 / 5400 1550 / 5400 1500 / 5400 Other: # Bowel Movements 0 0 2 Weight 95.9 kg Date of Last Bowel Movement 05/09/24 05/09/24 Patient Weight 05/10/24 23:59 Weight 95.9 kg EKG Interpretations EKG Attestation EKG: I reviewed this ECG and interpreted as documented below: (LV sequential paced rhythm) A&P - Cardiology (1) CHF (congestive heart failure): Code(s): I50.9 - Heart failure, unspecified Plan Assessment 1. Progressive shortness of breath appears due to heart failure. Chart suggestto recent echocardiogram at [facility] initially showed ejection fraction around 55% while repeat few days later showed ejection fraction 25% I do not have the images to review historically the patient ejection fraction wasin the past around 45% 2. Sick sinus syndrome with permanent pacemaker implantation 3. Paroxysmal atrial fibrillation 4. Essential hypertension 5. Chronic kidney disease of stage IV 6. Moderate risk for ischemic heart disease Plan 1. Continue with loop diuretics with close observation of renal function 2. I will repeat his echocardiogram to assess the accuracy of previous interpretation 3. Ischemic evaluation will be necessary but I believe invasive evaluation at the moment will carrysignificant risk of contrast-induced nephropathy 4. Continue anticoagulation for now 5. Will continue Coreg and hydralazine/nitrate combination for management of heart failure Documented By: Osvaldo Dickinson MD 05/10/241816 Signed By: 05/10/24 1830 [facility]02-19-2025 Progress note Author Alexa Corona [facility] Note Date/Time May 10, 2024 12:51pm [facility] [address] [place] [address] Hospitalist Progress Note Signed Patient: Leighton Arciniega MR#: [id number] : 1945 Acct:[id number] Age/Sex: 78 / M Adm Date: 5 Loc: Room: [address] [place] [address] Type: ADM IN Attending Dr: Alexa Corona MD Copies to: ~ Date of Service: 05/10/2024 Subjective Subjective Narrative: Patient has been seen and examined today. Feeling better, the family at the bedside, oxygen requirements went down from 6 L to 4 L, shortness of breath improving, minimal cough Reported some sputum with blood tinged Denies any chest pain, lower extremity edema improving, denies any dizziness anylightheadedness any palpitations Physical exam: General -awake, alert, oriented ?3, not in acute distress, sitting in the chair,mildly tachypneic Cardiovascular -S1 with S2, no murmurs, no rubs, no gallops Pulmonary -diminished breath sounds with crackles at the bases Gastrointestinal - abdomen is soft, nondistended, nontender, bowel sounds positive, there is no rigidity, no rebound Extremities -1+/2+ bilateral lower extremity edema Neurological -no focal neurological dysfunction noted Laboratory work up and Imaging studies reviewed ekg monitor - reviewed Exam Physical Exam Vital Signs: Temp Pulse Resp BP Pulse Ox O2 Del Method O2 Flow Rate 36.6 C 70 20 156/68 H 92 L Nasal Cannula 4 05/10/24 12:00 05/10/24 12:00 05/10/24 12:00 05/10/24 12:00 05/10/24 12:00 05/10/24 12:00 05/10/24 12:00 FiO2 40 05/10/24 04:34 Objective Lab Results 05/10/24 04:46 05/10/24 04:46 Meds Allergies and Active Meds Allergies fosinopril Allergy (Verified 05/09/24 19:59) SOB metoprolol Allergy (Verified 05/09/24 19:59) Hypotension strawberry Allergy (Verified 05/09/24 19:59) Rash Active Meds: Active Medications Generic Name Dose Route Start Last Admin Trade Name Jason PRN Reason Stop Dose Admin Acetaminophen 650 mg 05/09/24 20:01 05/10/24 09:47 Acetaminophen 325 Mg Tablet PO 05/09/25 20:00 650 mg Q4H PRN Administration Pain Scale 1 - 5 Albuterol 2.5 mg 05/09/24 20:01 Albuterol Neb 2.5 Mg/3 Ml Vial.Neb INHALATION 05/09/25 20:00 Q2H PRN Shortness Of Breath Allopurinol 300 mg 05/10/24 09:00 05/10/24 09:47 Allopurinol 300 Mg Tablet PO 05/10/25 08:59 300 mg DAILY BRYAN Administration Apixaban 5 mg 05/10/24 09:00 05/10/24 09:47 Apixaban 5 Mg Tablet PO 05/10/25 08:59 5 mg BID BRYAN Administration Aspirin 81 mg 05/14/24 09:00 Aspirin 81 Mg Tablet.Dr PO 05/14/25 08:59 Q7D BRYAN Atorvastatin Calcium 10 mg 05/10/24 09:00 05/10/24 09:48 Atorvastatin 10 Mg Tablet PO 05/10/25 08:59 10 mg DAILY BRYAN Administration Carvedilol 6.25 mg 05/10/24 09:00 05/10/24 09:47 Carvedilol 6.25 Mg Tablet PO 05/10/25 08:59 6.25 mg BID BRYAN Administration Dextrose 0 gm 05/09/24 21:07 Dextrose 50% In Water 25 Gm/50 Ml Syringe IV-PUSH 05/09/25 21:06 PRN PRN Hypoglycemia Docusate Sodium 200 mg 05/09/24 20:01 Docusate 100 Mg Capsule PO 05/09/25 20:00 BID PRN Constipation Finasteride 5 mg 05/10/24 09:00 05/10/24 09:48 Finasteride 5 Mg Tablet PO 05/10/25 08:59 5 mg DAILY BRYAN Administration Glucose 0 gm 05/09/24 21:07 Dextrose 40% Gel 15 Gm Tube PO 05/09/25 21:06 PRN PRN Hypoglycemia Hydralazine HCl 10 mg 05/09/24 20:01 Hydralazine 20 Mg/Ml Vial IV-PUSH 05/09/25 20:00 Q4H PRN if SBP > 185 Hydralazine HCl 50 mg 05/10/24 09:00 05/10/24 09:47 Hydralazine 50 Mg Tablet PO 05/10/25 08:59 50 mg BID BRYAN Administration Bumetanide 24 mg/ IV 96 mls @ 4 mls/hr 05/09/24 21:15 05/09/24 22:29 Miscellaneous Supplies IV 05/09/25 21:14 1 mg/hr .Q24H BRYAN 4 mls/hr Administration 1 MG/HR Insulin Aspart 0 units 05/09/24 22:00 05/10/24 11:44 Insulin Aspart 300 Units/3 Ml SUBCUT 05/09/25 21:59 1 units TID.WM.HS BRYAN Administration Protocol Insulin Glargine 24 units 05/10/24 09:00 05/10/24 09:48 Insulin Glargine 300 Units/3 Ml Insuln.Pen SUBCUT 05/10/25 08:59 24 units BID BRYAN Administration Isosorbide Mononitrate 30 mg 05/11/24 09:00 Isosorbide Mononitrate 24hr Er 30 Mg Tab.Er.24h PO 05/11/25 08:59 QAM BRYAN Pantoprazole Sodium 40 mg 05/10/24 09:00 05/10/24 09:47 Pantoprazole 40 Mg Tablet.Dr PO 05/10/25 08:59 40 mg DAILY BRYAN Administration Terazosin HCl 10 mg 05/09/24 22:00 05/09/24 22:30 Terazosin 5 Mg Capsule PO 05/09/25 21:59 10 mg HS BRYAN Administration A&P - Hospitalist Assessment/Plan (1) CHF (congestive heart failure): Plan 1. Acute hypoxic respiratory failure requiring BiPAP administration at [facility], improving with diuretic therapy, currently downgraded to 6 L nasal cannula, now to 4, I do suspect due to acute systolic congestive heart failure with ejection fraction 20% as per reports from [facility] For now I will continue with Bumex drip, strict input and output, recheck kidneyfunction in a.m., negative output 4.4 L Consulted cardiology due to systolic heart failure No signs of acute coronary syndrome, troponins negative 2. Kidney dysfunction, unclear baseline -per patient he does have underlying chronic kidney disease stage III, with baseline creatinine 1.8. Currently creatinine improving with diuresis Continue with Bumex drip, strict input and output, avoid any nephrotoxic medication at this point Patient does have Gomez catheter, with very clear diluted urine noted in it 3. Hypertension continue with blood pressure medications, hold Norvasc Continue with hydralazine and Imdur 4. Atrial fibrillation, continue with Eliquis therapy, rate controlled, continue with beta-blockers H&H stable, blood-tinged sputum, could be from the CHF, for now we will continueto observe if any hemoptysis noted will hold Eliquis 5. Diabetes mellitus type 2, continue with home medications, hold p.o. meds, add sliding scale 6. DVT prophylaxis already on Eliquis Documented By: Alexa Corona MD 05/10/24 1245 Signed By: <Electronically signed by Alexa Corona MD> 05/10/24 1253 [facility] Work Phone: 1(309) 195-387302-19-2025 [place] [address] Hospitalist Progress Note Signed Patient: Leighton Arciniega MR#: [id number] : 1945 Acct:[id number] Age/Sex: 78 / M Adm Date: 5 Loc: Room: [address] [place] [address] Type: ADM IN Attending Dr: Alexa Corona MD Copies to: ~ Date of Service: 05/10/2024 Subjective Subjective Narrative: Patient has been seen and examined today. Feeling better, the family at the bedside, oxygen requirements went down from 6 L to 4 L, shortness of breath improving, minimal cough Reported some sputum with blood tinged Denies any chest pain, lower extremity edema improving, denies any dizziness anylightheadedness anypalpitations Physical exam: General -awake, alert, oriented ?3, not in acute distress, sitting in the chair,mildly tachypneic Cardiovascular -S1 with S2, no murmurs, no rubs, no gallops Pulmonary -diminished breath sounds with crackles at the bases Gastrointestinal - abdomen is soft, nondistended, nontender, bowel sounds positive, there is no rigidity, no rebound Extremities -1+/2+ bilateral lower extremity edema Neurological -no focal neurological dysfunction noted Laboratory work up and Imaging studies reviewed ekg monitor - reviewed Exam Physical Exam Vital Signs: Temp Pulse Resp BP Pulse Ox O2 Del Method O2 Flow Rate 36.6 C 70 20 156/68 H 92 L Nasal Cannula 4 05/10/24 12:00 05/10/24 12:00 05/10/24 12:00 05/10/24 12:00 05/10/24 12:00 05/10/24 12:00 05/10/24 12:00 FiO2 40 05/10/24 04:34 Objective Lab Results 05/10/24 04:46 05/10/24 04:46 Meds Allergies and Active Meds Allergies fosinopril Allergy (Verified 05/09/24 19:59) SOB metoprolol Allergy (Verified 05/09/24 19:59) Hypotension strawberry Allergy (Verified 05/09/24 19:59) Rash Active Meds: Active Medications Generic Name Dose Route Start Last Admin Trade Name Freq PRN Reason Stop Dose Admin Acetaminophen 650 mg 05/09/24 20:01 05/10/24 09:47 Acetaminophen 325 Mg Tablet PO 05/09/25 20:00 650 mg Q4H PRN Administration Pain Scale 1 - 5 Albuterol 2.5 mg 05/09/24 20:01 Albuterol Neb 2.5 Mg/3 Ml Vial.Neb INHALATION 05/09/25 20:00 Q2H PRN Shortness Of Breath Allopurinol 300 mg 05/10/24 09:00 05/10/24 09:47 Allopurinol 300 Mg Tablet PO 05/10/25 08:59 300 mg DAILY BRYAN Administration Apixaban 5 mg 05/10/24 09:00 05/10/24 09:47 Apixaban 5 Mg Tablet PO 05/10/25 08:59 5 mg BID BRYAN Administration Aspirin 81 mg 05/14/24 09:00 Aspirin 81 Mg Tablet. PO 05/14/25 08:59 Q7D BRYAN Atorvastatin Calcium 10 mg 05/10/24 09:00 05/10/24 09:48 Atorvastatin 10 Mg Tablet PO 05/10/25 08:59 10 mg DAILY BRYAN Administration Carvedilol 6.25 mg 05/10/24 09:00 05/10/24 09:47 Carvedilol 6.25 Mg Tablet PO 05/10/25 08:59 6.25 mg BID BRYAN Administration Dextrose 0 gm 05/09/24 21:07 Dextrose 50% In Water 25 Gm/50 Ml Syringe IV-PUSH 05/09/25 21:06 PRN PRN Hypoglycemia Docusate Sodium 200 mg 05/09/24 20:01 Docusate 100 Mg Capsule PO 05/09/25 20:00 BID PRN Constipation Finasteride 5 mg 05/10/24 09:00 05/10/24 09:48 Finasteride 5 Mg Tablet PO 05/10/25 08:59 5 mg DAILY BRYAN Administration Glucose 0 gm 05/09/24 21:07 Dextrose 40% Gel 15 Gm Tube PO 05/09/25 21:06 PRN PRN Hypoglycemia Hydralazine HCl 10 mg 05/09/24 20:01 Hydralazine 20 Mg/Ml Vial IV-PUSH 05/09/25 20:00 Q4H PRN if SBP > 185 Hydralazine HCl 50 mg 05/10/24 09:00 05/10/24 09:47 Hydralazine 50 Mg Tablet PO 05/10/25 08:59 50 mg BID BRYAN Administration Bumetanide 24 mg/ IV 96 mls @ 4 mls/hr 05/09/24 21:15 05/09/24 22:29 Miscellaneous Supplies IV 05/09/25 21:14 1 mg/hr .Q24H BRYAN 4 mls/hr Administration 1 MG/HR Insulin Aspart 0 units 05/09/24 22:00 05/10/24 11:44 Insulin Aspart 300 Units/3 Ml SUBCUT 05/09/25 21:59 1 units TID.WM.HS BRYAN Administration Protocol Insulin Glargine 24 units 05/10/24 09:00 05/10/24 09:48 Insulin Glargine 300 Units/3 Ml Insuln.Pen SUBCUT 05/10/25 08:59 24 units BID BRYAN Administration Isosorbide Mononitrate 30 mg 05/11/24 09:00 Isosorbide Mononitrate 24hr Er 30 Mg Tab.Er.24h PO 05/11/25 08:59 QAM BRYAN Pantoprazole Sodium 40 mg 05/10/24 09:00 05/10/24 09:47 Pantoprazole 40 Mg Tablet. PO 05/10/25 08:59 40 mg DAILY BRYAN Administration Terazosin HCl 10 mg 05/09/24 22:00 05/09/24 22:30 Terazosin 5 Mg Capsule PO 05/09/25 21:59 10 mg HS BRYAN Administration A&P - Hospitalist Assessment/Plan (1) CHF (congestive heart failure): Plan 1. Acute hypoxic respiratory failure requiring BiPAP administration at [facility], improving with diuretic therapy, currently downgraded to 6 L nasal cannula, now to 4, I do suspect due to acute systolic congestive heart failure with ejection fraction 20% as per reports from [facility] For now I will continue with Bumex drip, strict input and output, recheck kidneyfunction in a.m., negative output 4.4 L Consulted cardiology due to systolic heart failure No signs of acute coronary syndrome, troponins negative 2. Kidney dysfunction, unclear baseline -per patient he does have underlying chronic kidney diseasestage III, with baseline creatinine 1.8. Currently creatinine improving with diuresis Continue with Bumex drip, strict input and output, avoid any nephrotoxic medication at this point Patient does have Gomez catheter, with very clear diluted urine noted in it 3. Hypertension continue with blood pressure medications, hold Norvasc Continue with hydralazine and Imdur 4. Atrial fibrillation, continue with Eliquis therapy, rate controlled, continue with beta-blockers H&H stable, blood-tinged sputum, could be from the CHF, for now we will continueto observe if any hemoptysis noted will hold Eliquis 5. Diabetes mellitus type 2, continue with home medications, hold p.o. meds, add sliding scale 6. DVT prophylaxis already on Eliquis Documented By: Alexa Corona MD 05/10/24 1248 Signed By: 05/10/24 1251 [facility]02-18-2025 History and physical note Author Alexa Corona [facility] Note Date/Time May 09, 2024 9:08pm [facility] [address] [place] [address] Hospitalist H&P Signed Patient: Leighton Arciniega MR#: [id number] : 1945 Acct:[id number] Age/Sex: 78 / M Adm Date: 5 Loc: 4 Room: 3Z5255-0 Type: ADM IN Attending Dr: Devan Drake MD Copies to: MD Devan Love MD Ruta Semaskiene, MD~ HPI DATE OF EXAMINATION: 05/09/24 HISTORY OF PRESENT ILLNESS: 78 Years old male transferred from [place] with shortness of breath. Patient was hospitalized in April 2024 for pneumonia and was discharged on 4 L nasal cannula on May 06, before he has not been using oxygen, however May 07he was readmitted due to worsening of shortness of breath. In March echocardiogram showed preserved ejection fraction, but repeated echocardiogram in April showed ejection fraction 25%. According to the patient he has been having some worsening of shortness of breath associated with cough but no feversno sore throat, he denies any chest pain any palpitations and dizziness, he alsowas complaining of swelling in his lower extremities. He was placed on Bumex drip with significant urine output, initially he did require BiPAP, but it was downgraded to 6 L nasal cannula, he admits that his shortness of breath significantly improved since admission. He was also getting linezolid and Zosyn Evaluation showed 05/08 White blood cell count 6.3, hemoglobin 9.0, platelets 123, sodium 136, potassium4.1, bicarbonate 23, BUN 77, creatinine 2.4, glucose 77, calcium 8.7, liver enzymes normal 05/09/2024 Laboratory 9.1, hemoglobin 8.7, platelets 118, sodium 136 potassium 4.3, chloride 103, bicarbonate 24, creatinine 2.45, BUN 85 TSH 126 which is normal Influenza A/B-, RSV negative, COVID-negative, CRP less than 0.5 troponins 54 which is normal Chest x-ray 05/07/2024 showed progressive bilateral airspace density most consistent with bilateral pneumonia more extensive on the right, cannot exclude edema from heart failure Echocardiogram showed ejection fraction 15 to 20% with diffuse hypokinesia 10 systems are reviewed and are negative from what is mentioned to HEALTH PROMOTION COORDINATOR General -patient is awake alert oriented ?3, in respiratory distress, on 6 L nasal cannula, but able to speak in full sentences HEENT -normal oropharyngeal mucosa without any ulcers or exudates Cardiovascular -S1 plus S2, with regular rate, without any murmurs, gallops, rubs Pulmonary crackles at the bases Gastrointestinal -abdomen is soft, nondistended, nontender, bowel sounds positive, no rigidity, no rebound Musculoskeletal -no significant joint swelling n Neurological -no focal Skin -no significant ulcers, no rash noted Extremities -1 edema Psychiatry - appropriate affect Laboratory work up, imaging studies reviewed EKG personally reviewed by jacqueline jordan Previous records in the computer system reviewed [facility] Medical History (Updated 05/09/24 @ 21:08 by Alexa Corona MD) CHF (congestive heart failure) Meds Medications and Allergies Allergies fosinopril Allergy (Verified 05/09/24 19:59) SOB metoprolol Allergy (Verified 05/09/24 19:59) Hypotension strawberry Allergy (Verified 05/09/24 19:59) Rash Home Medications acetaminophen 500 mg capsule 1,000 mg PO Q6HR PRN fever or pain 05/09/24 [History Confirmed 05/09/24] albuterol sulfate 2.5 mg/3 mL (0.083 %) solution for nebulization 2.5 mg inhalation Q4HR PRN shortness of breath or wheezing 05/09/24 [History Confirmed 05/09/24] allopurinol 300 mg tablet 300 mg PO DAILY 05/09/24 [History Confirmed 05/09/24] amlodipine 10 mg tablet 10 mg PO DAILY 05/09/24 [History Confirmed 05/09/24] apixaban 5 mg tablet (Eliquis) 5 mg PO Q12HR 05/09/24 [History Confirmed 05/09/24] aspirin 81 mg capsule 81 mg PO .weekly 05/09/24 [History Confirmed 05/09/24] calcium 315 mg (as citrate)-vitamin D3 5 mcg (200 unit) tablet 1 tab PO DAILY 05/09/24 [History Confirmed 05/09/24] carvedilol 6.25 mg tablet (Coreg) 6.25 mg PO BID 05/09/24 [History Confirmed 05/09/24] finasteride 5 mg tablet 5 mg PO DAILY 05/09/24 [History Confirmed 05/09/24] fluconazole 200 mg tablet 400 mg PO DAILY 05/09/24 [History Confirmed 05/09/24] furosemide 20 mg tablet 20 mg PO BID 05/09/24 [History Confirmed 05/09/24] glipizide 10 mg tablet 10 mg PO BID 05/09/24 [History Confirmed 05/09/24] hydralazine 50 mg tablet 50 mg PO TID 05/09/24 [History Confirmed 05/09/24] insulin glargine 100 unit/mL (3 mL) subcutaneous pen 24 unit subcut BID 05/09/24[History Confirmed 05/09/24] levofloxacin 750 mg tablet 750 mg PO DAILY 05/09/24 [History Confirmed 05/09/24] mecobalamin (vitamin B12) 1,000 mcg chewable tablet 1,000 mcg PO DAILY 05/09/24 [History Confirmed 05/09/24] multivitamin (Daily Multi-Vitamin tablet) 1 tab PO DAILY 05/09/24 [History Confirmed 05/09/24] omeprazole 20 mg capsule,delayed release 20 mg PO DAILY 05/09/24 [History Confirmed 05/09/24] prednisone 10 mg tablet 30 mg PO DAILY 05/09/24 [History Confirmed 05/09/24] semaglutide 1 mg/dose (4 mg/3 mL) subcutaneous pen injector (Ozempic) 1 mg subcut QWEEK 05/09/24 [History Confirmed 05/09/24] simvastatin 20 mg tablet 20 mg PO DAILY 05/09/24 [History Confirmed 05/09/24] spironolactone 25 mg tablet 25 mg PO DAILY 05/09/24 [History Confirmed 05/09/24] terazosin 10 mg capsule 10 mg PO HS 05/09/24 [History Confirmed 05/09/24] Exam Physical Exam Vital Signs: Temp Pulse Resp BP Pulse Ox O2 Del Method O2 Flow Rate 36.6 C 81 18 144/68 H 92 L Nasal Cannula 6 05/09/24 19:55 05/09/24 19:55 05/09/24 19:55 05/09/24 19:55 05/09/24 19:55 05/09/24 19:55 05/09/24 19:55 Assessment & Plan Assessment/Plan (1) CHF (congestive heart failure): Plan 1. Acute hypoxic respiratory failure requiring BiPAP administration, improving with diuretic therapy, currently downgraded to 6 L nasal cannula, I do suspect due to acute systolic congestive heart failure with ejection fraction 20% as per[facility] For now I will continue with Bumex drip, strict input and output, recheck kidneyfunction in a.m., today labs reviewed from [facility] Consult cardiology due to systolic heart failure No signs of acute coronary syndrome, troponins negative I doubt it is pneumonia Check chest x-ray 2. Kidney dysfunction, unclear baseline Continue with Bumex drip, strict input and output, avoid any nephrotoxic medication at this point Patient does have Gomez catheter, with very clear diluted urine noted in it 3. Hypertension continue with blood pressure medications, hold Norvasc 4. Atrial fibrillation, continue with Eliquis therapy, rate controlled, continue with beta-blockers 5. Diabetes mellitus type 2, continue with home medications, hold p.o. meds, add sliding scale 6. DVT prophylaxis already on Eliquis IP vs OBS Justification Based on differential dx, clinical care plan, and risk of adverse events, if untreated, in my clinical judgement this patient requires an acute care setting as: INPATIENT because of an expectation of an over 2 midnight stay. Estimated length of stay (# of days): 3 Documented By: Alexa Corona MD 05/09/242051 Signed By: <Electronically signed by Alexa Corona MD> 05/09/242107 [facility] Work Phone: 1(739) 250-630002-18-2025 Evaluation note* Diagnosis Onset Date Resolution Status Admit Date CHF (congestive heart failure) acute May 09, 7:47pm Chronic kidney disease acute Fe bruary 2024 7:47pm Pacemaker acute May 09, 2024 7:47pm Sick sinus syndrome acute Febru rhea 2024 7:47pm [facility] Work Phone: 1(760) 377-804802-18-2025 [place] [address] Hospitalist H&P Signed Patient: Leighton Arciniega MR#: [id number] : 1945 Acct:[id number] Age/Sex: 78 / M Adm Date: 5 Loc: Room: [address] [place] [address] Type: ADM IN Attending Dr: Devan Drake MD Copies to: MD Devan Love MD Ruta Semaskiene, MD~ HPI DATE OF EXAMINATION: 05/09/24 HISTORY OF PRESENT ILLNESS: 78 Years old male transferred from [place] with shortness of breath. Patient was hospitalized in April 2024 for pneumonia and was discharged on 4 L nasal cannula on May 06, before he has notbeen using oxygen, however May 07he was readmitted due to worsening of shortness of breath. InJanuary echocardiogram showed preserved ejection fraction, but repeated echocardiogram in April showed ejection fraction 25%. According to the patient he has been having some worsening of shortness of breath associated with cough but no feversno sore throat, he denies any chest pain any palpitations and dizziness, he alsowas complaining of swelling in his lower extremities. He was placed on Bumex drip with significant urine output, initially he did require BiPAP, but it was downgraded to 6 Lnasal cannula, he admits that his shortness of breath significantly improved since admission. He was also getting linezolid and Zosyn Evaluation showed 05/08 White blood cell count 6.3, hemoglobin 9.0, platelets 123, sodium 136, potassium4.1, bicarbonate 23, BUN 77, creatinine 2.4, glucose 77, calcium 8.7, liver enzymes normal 05/09/2024 Laboratory 9.1, hemoglobin 8.7, platelets 118, sodium 136 potassium 4.3, chloride 103, bicarbonate 24, creatinine 2.45, BUN 85 TSH 126 which is normal Influenza A/B-, RSV negative, COVID-negative, CRP less than 0.5 troponins 54 which is normal Chest x-ray 05/07/2024 showed progressive bilateral airspace density most consistent with bilateral pneumonia more extensive on the right, cannot exclude edema from heart failure Echocardiogram showed ejection fraction 15 to 20% with diffuse hypokinesia 10 systems are reviewed and are negative from what is mentioned to HEALTH PROMOTION COORDINATOR General -patient is awake alert oriented ?3, in respiratory distress, on 6 L nasal cannula, but able to speak in full sentences HEENT -normal oropharyngeal mucosa without any ulcers or exudates Cardiovascular -S1 plus S2, with regular rate, without any murmurs, gallops, rubs Pulmonary crackles at the bases Gastrointestinal -abdomen is soft, nondistended, nontender, bowel sounds positive, no rigidity, no rebound Musculoskeletal -no significant joint swelling n Neurological -no focal Skin -no significant ulcers, no rash noted Extremities -1 edema Psychiatry - appropriate affect Laboratory work up, imaging studies reviewed EKG personally reviewed by paced ventricle Previous records in the computer system reviewed [facility] Medical History (Updated 05/09/24 @ 21:08 by Alexa Corona MD) CHF (congestive heart failure) Meds Medications and Allergies Allergies fosinopril Allergy (Verified 05/09/24 19:59) SOB metoprolol Allergy (Verified 05/09/24 19:59) Hypotension strawberry Allergy (Verified 05/09/24 19:59) Rash Home Medications acetaminophen 500 mg capsule 1,000 mg PO Q6HR PRN fever or pain 05/09/24 [History Confirmed 05/09/24] albuterol sulfate 2.5 mg/3 mL (0.083 %) solution for nebulization 2.5 mg inhalation Q4HR PRN shortness of breath or wheezing 05/09/24 [History Confirmed 05/09/24] allopurinol 300 mg tablet 300 mg PO DAILY 05/09/24 [History Confirmed 05/09/24] amlodipine 10 mg tablet 10 mg PO DAILY 05/09/24 [History Confirmed 05/09/24] apixaban 5 mg tablet (Eliquis) 5 mg PO Q12HR 05/09/24 [History Confirmed 05/09/24] aspirin 81 mg capsule 81 mg PO .weekly 05/09/24 [History Confirmed 05/09/24] calcium 315 mg (as citrate)-vitamin D3 5 mcg (200 unit) tablet 1 tab PO DAILY 05/09/24 [History Confirmed 05/09/24] carvedilol 6.25 mg tablet (Coreg) 6.25 mg PO BID 05/09/24 [History Confirmed 05/09/24] finasteride 5 mg tablet 5 mg PO DAILY 05/09/24 [History Confirmed 05/09/24] fluconazole 200 mg tablet 400 mg PO DAILY 05/09/24 [History Confirmed 05/09/24] furosemide 20 mg tablet 20 mg PO BID 05/09/24 [History Confirmed 05/09/24] glipizide 10 mg tablet 10 mg PO BID 05/09/24 [History Confirmed 05/09/24] hydralazine 50 mg tablet 50 mg PO TID 05/09/24 [History Confirmed 05/09/24] insulin glargine 100 unit/mL (3 mL) subcutaneous pen 24 unit subcut BID 05/09/24[History Confirmed 05/09/24] levofloxacin 750 mg tablet 750 mg PO DAILY 05/09/24 [History Confirmed 05/09/24] mecobalamin (vitamin B12) 1,000 mcg chewable tablet 1,000 mcg PO DAILY 05/09/24 [History Confirmed 05/09/24] multivitamin (Daily Multi-Vitamin tablet) 1 tab PO DAILY 05/09/24 [History Confirmed 05/09/24] omeprazole 20 mg capsule,delayed release 20 mg PO DAILY 05/09/24 [History Confirmed 05/09/24] prednisone 10 mg tablet 30 mg PO DAILY 05/09/24 [History Confirmed 05/09/24] semaglutide 1 mg/dose (4 mg/3 mL) subcutaneous pen injector (Ozempic) 1 mg subcut QWEEK 05/09/24 [History Confirmed 05/09/24] simvastatin 20 mg tablet 20 mg PO DAILY 05/09/24 [History Confirmed 05/09/24] spironolactone 25 mg tablet 25 mg PO DAILY 05/09/24 [History Confirmed 05/09/24] terazosin 10 mg capsule 10 mg PO HS 05/09/24 [History Confirmed 05/09/24] Exam Physical Exam Vital Signs: Temp Pulse Resp BP Pulse Ox O2 Del Method O2 Flow Rate 36.6 C 81 18 144/68 H 92 L Nasal Cannula 6 05/09/24 19:55 05/09/24 19:55 05/09/24 19:55 05/09/24 19:55 05/09/24 19:55 05/09/24 19:55 05/09/24 19:55 Assessment & Plan Assessment/Plan (1) CHF (congestive heart failure): Plan 1. Acute hypoxic respiratory failure requiring BiPAP administration, improving with diuretic therapy, currently downgraded to 6 L nasal cannula, I do suspect due to acute systolic congestive heart failure with ejection fraction 20% as perreports from [facility] For now I will continue with Bumex drip, strict input and output, recheck kidneyfunction in a.m., today labs reviewed from [facility] Consult cardiology due to systolic heart failure No signs of acute coronary syndrome, troponins negative I doubt it is pneumonia Check chest x-ray 2. Kidney dysfunction, unclear baseline Continue with Bumex drip, strict input and output, avoid any nephrotoxic medication at this point Patient does have Gomez catheter, with very clear diluted urine noted in it 3. Hypertension continue with blood pressure medications, hold Norvasc 4. Atrial fibrillation, continue with Eliquis therapy, rate controlled, continue with beta-blockers 5. Diabetes mellitus type 2, continue with home medications, hold p.o. meds, add sliding scale 6. DVT prophylaxis already on Eliquis IP vs OBS Justification Based on differential dx, clinical care plan, and risk of adverse events, if untreated, in my clinical judgement this patient requires an acute care setting as: INPATIENT because of an expectation ofan over 2 midnight stay. Estimated length of stay (# of days): 3 Documented By: Alexa Corona MD 05/09/242051 Signed By: 05/09/242107 [facility]02-05-2025 NotePatient Education Urology Indwelling Urinary Catheter Insertion For [...] you. This will be done when the catheteris no longer necessary, which is likely to be before you leave the hospital. Summary ??? An indwelling catheter is a sterile tube that is placed into the bladder through the urethra tohelp drain urine out of the body. ??? The catheter will be removed when it is no longer needed. This information is not intended to replace advice given to you by your health care provider. Make sure you discuss any questions you have with your health care provider. Document Revised: 11/05/2021 Document Reviewed: 11/05/2021 [employer] Patient Education ? 2023 [employer] 04-12-2024 NotePatient Education Urology Benign Prostatic Hyperplasia Benign prostatic hyperplasia (BPH) is an enlarged prostate gland that is caused by the normal agingprocess. The prostate may get bigger as a man gets older. The condition is not caused by cancer. The prostate is a walnut-sized gland that is involved in the production of semen. It is located in front of the rectum and below the bladder. The bladder stores urine. The urethra carries stored urine ou t of the body. An enlarged prostate can press on the urethra. This can make it harder to pass urine. The buildup of urine in the bladder can cause infection. Back pressure and infection may progress to bladder damage and kidney (renal) failure. What are the causes? This condition is part of the normal aging process. However, not all men develop problems from thiscondition. If the prostate enlarges away from the [...] this procedure, a tool is inserted through theopening at the tip of the penis (urethra). [...] procedure uses radio frequencies to destroy and removea small amount of prostate tissue. ? Interstitial laser coagulation (ILC). This procedure uses a laser to destroy and remove a small amount of prostate tissue. ? Transurethral electrovaporization (TUVP). This procedure uses electrodes to destroy and remove a small amount of prostate tissue. ? Prostatic urethral lift. This procedure inserts an implant to push the lobes of the prostate awayfrom the urethra. Follow these instructions at home: ??? Take rrhg-ecx-icjjmuz and prescription medicines only as told by [...] symptoms do not get (more content not included)...[facility]12-12-2024 NotePatient Education Urology Acute Urinary Retention, Male Acute urinary retention is a condition in which a person is unable to pass urine or can only pass alittle urine. This condition can happen suddenly and [...] As men age, their prostate may become largerand may start to press or squeeze on [...] trauma or because he does not want touse the bathroom. What are the signs or [...] these instructions at home: Medicines ??? Take sgwh-vbe-fhbnyxe and prescription medicines only as told by your health care provider. Avoid certain medicines, such as decongestants, antihistamines, and some prescription medicines. Do nottake any medicine unless your health care provider approves. ??? If you were prescribed an antibiotic medicine, take it as told by your health care provider. Donot stop using the antibiotic even if you [...] provider. Document Revised: 11/27/2020 Document Reviewed: 11/27/2020 [employer] Patient Education ? 2023 [employer] 03-01-2024 History of Present illness Narrative* Osvaldo Dickinson MD - 03/01/2024 11:00 AM EST Kaitlyn Arciniega is a 78 y.o. male [...] to retrieve his recent lab work from [facility] 5. I will see him back [...] 5 mg at breakfast 10 mg at dinner(Patient taking differently: Take 2 tablets (10 mg) [...] 1 mg under the skin 1 (one) timeper week., Disp: , Rfl: sildenafil (Viagra) 100 mg tablet, take 1 tablet by mouth 1 hour prior to intercourse if needed, Disp: , Rfl: simvastatin (Zocor) 20 mg tablet, Take 0.5 tablets (10 mg) by mouth once daily at bedtime., Disp: ,Rfl: spironolactone (Aldactone) 25 mg tablet, Take 1 [...] the direction and in the presence of MD Marvin. Provider Attestation - Scribe documentation All medical record entries made by the Scribe were at my direction and personally dictated by me. Ihave reviewed the chart and agree that the record accurately reflects my personal performance of the history, physical exam, discussion and plan. documented in this [facility] Work Phone: 1(777) 531-876812-11-2024 Instructions* Patient Instructions* Betzaida Denney LPN - 03/01/2024 11:00 AM [...] Provided instructions on exercise. documented in this [facility] Work Phone: 1(810) 394-682711-25-2024 NotePatient Education Rezum Post-Procedure Instructions General Recommendations 1. [...] excessive or you are having trouble urinating, callthe number below. 2. Painful Urination. It is common to have some pain or burning with urination for 1 to 2 weeks. Itshould gradually improve. If it persists or starts [...] day. If you are taking pain medication (narcotics)or have a physical job (lifting, construction work, [...] is an emergency, go to the nearest emergencyroom or call 911. Gomez Catheter Care, Male [...] to the c (more content not included)... [facility]11-11-2024 NotePatient Education Urology Acute Urinary Retention, Male Acute urinary retention is a condition in which a person is unable to pass urine or can only pass alittle urine. This condition can happen suddenly and [...] As men age, their prostate may become largerand may start to press or squeeze on [...] trauma or because he does not want touse the bathroom. What are the signs or [...] these instructions at home: Medicines ??? Take uull-dlm-jwkqfkn and prescription medicines only as told by your health care provider. Avoid certain medicines, such as decongestants, antihistamines, and some prescription medicines. Do nottake any medicine unless your health care provider approves. ??? If you were prescribed an antibiotic medicine, take it as told by your health care provider. Donot stop using the antibiotic even if you [...] provider. Document Revised: 11/27/2020 Document Reviewed: 11/27/2020 [employer] Patient Education ? 2023 [employer] Benign Prostatic Hyperplasia Benign prostatic hyperplasia (BPH) is an enlarged prostate gland that is caused by the normal agingproc (more content not included)...[facility]10-28-2024 History of Present illness Narrative* Blanca Alonso MD - 01/17/2024 3:15 PM EDT Images from the original note were not [...] benign pigmented lesions that occur on sun-exposed andsun-damaged skin. No treatment is necessary. Recommended regular [...] Next Visit: 1 year documented in this encounterAl[facility] J. Siteman [facility] [id number] NoteProgress Note-Physician Patient: LEIGHTON ARCINIEGA Age: 78 years Sex: [...] day(s), # 6 tab(s), Refills(s) 0, Pharmacy: [facility] #[id number], 177, cm, 12/27/23 11:02:00 EDT, Height/Length Dosing, 104, kg, 12/27/23 11:02:00 EDT, Weight Dosing Bayard 325 mg-5 mg oral tablet: 1 tab(s), Oral, q6hr for pain, 4 tab(s), Refill(s) 0, Take 1 tablet an hour before procedure, post procedure prn, [facility] #[id number], 177, cm, 12/27/23 11:02:00 EDT, Height/Length Dosing, 104, kg, 12/27/23 11:02:00 EDT, Weight Dosing sildenafil 100 mg Tab: 100 mg = 1 tab(s), Oral, As Directed, PRN for erectile dysfunction, Take onetab 1 hour prior to sexual activity., # 30 tab(s), Refills(s) 3, [facility][id number], 177.8, cm, 06/16/23 10:18:00 EDT, Height/Length Dosing, 104.8, kg, 06/16/23 10:18:... terazosin 10 mg Cap: 10 mg = 1 cap(s), Oral, Once a day (at bedtime), # 90 cap(s), Refills(s) 3, Pharmacy: [facility], 177, cm, 12/27/23 11:02:00 EDT, Height/Length Dosing, 104, kg, 12/27/23 11:02:00 EDT, Weight Dosing traMADOL 50 mg Tab: 50 mg = 1 tab(s), Oral, q6hr, Take as needed for pain., # 6 tab(s), Refills(s) 0, Pharmacy: [facility] #[id number], 177.8, cm, 11/12/23 15:35:00 EDT, Height/Length Dosing, [...] Plan: Diagnosis: Prostate hyperplasia with urinary obstruction (BOG61-VH N40.1, Discharge, Medical), Feeling of incomplete bladder emptying (ZTG57-FE R39.14, Working, Medical), Anticoagulated (FJE34-WS Z79.01, Discharge, Medical). 78 yo male here [...] and Valium prior to procedure. Will need double bottom driver. The procedural risks, benefits, details, and treatment alternatives have been discussed with the patient. These include bleeding, infection, continued problems urinating, increased frequency with urgency during the healing process, painful urination, need for indwelling cathete (more content not included)... [facility] HospitalComment on above:Result Comment: Electronically Signed By: Josep SANDHU, Mica Johns\.br\Date and Time Signed: 12/27/23 12:43EDT 12-27-2023 NotePatient Education Cystoscopy ? Voiding after the procedure: there may be some pain, burning, urgency, frequency and blood tingedurine following the procedure. These symptoms usually resolve [...] if you have a fever over 100 degrees.[facility] 12-14-2023 History of Present illness Narrative* Dank Jones, DO - 12/14/2023 1:30 PM EDT Images from the original note were not [...] (hypertension) (CMS/HCC) Hx of psoriasis Kidney disease MT (myocardial infarction) (CMS/HCC) VIRGILIO (obstructive sleep apnea) [...] excess calories, unspecified classification, unspecified whether serious comorbiditypresent Snoring 1. VIRGILIO (obstructive sleep apnea) - [...] was counselled on the risk of stroke, MT, and sudden with VIRGILIO, along with the need for compliance with CPAP/BiPAP treatment. The patient was counseled on the need for aggressive diet, exercise, and weight loss. This was discussed with the patient, all questions were answered and they agreed with the treatmentplan. The patient is to call with any [...] instructions Return to clinic: documented in this encounterAlvin J. Siteman Cancer [id number] NotePatient Education Urology Benign Prostatic Hyperplasia Benign prostatic hyperplasia (BPH) is an enlarged prostate gland that is caused by the normal agingprocess. The prostate may get bigger as a man gets older. The condition is not caused by cancer. The prostate is a walnut-sized gland that is involved in the production of semen. It is located in front of the rectum and below the bladder. The bladder stores urine. The urethra carries stored urine ou t of the body. An enlarged prostate can press on the urethra. This can make it harder to pass urine. The buildup of urine in the bladder can cause infection. Back pressure and infection may progress to bladder damage and kidney (renal) failure. What are the causes? This condition is part of the normal aging process. However, not all men develop problems from thiscondition. If the prostate enlarges away from the [...] urine that may remain in your bladder afteryou finish urinating. ? A digital rectal exam. [...] this procedure, a tool is inserted through theopening at the tip of the penis (urethra). [...] procedure uses radio frequencies to destroy and removea small amount of prostate tissue. ? Interstitial laser coagulation (ILC). This procedure uses a laser to destroy and remove a small amount of prostate tissue. ? Transurethral electrovaporization (TUVP). This procedure uses electrodes to destroy and remove a small amount of prostate tissue. ? Prostatic urethral lift. This procedure inserts an implant to push the lobes of the prostate awayfrom the urethra. Follow these instructions at home: ? Take gtgu-fxd-eliratk and prescription medicines only as told by [...] You develop side effec (more content not included)...[facility] NoteED Patient Education Note Orthopedics Acute Knee Pain, [...] leave the ground at the same time (high- impact activities). Examples are running, jumping rope, and [...] under your knee. General instructions ? Take apqn-lkh-dwdqzoj and prescription medicines only as told by your doctor. ? Do not smoke or use any products that contain nicotine or tobacco. If you need help quitting, askyour doctor. ? If you are overweight, work [...] provider. Document Revised: 08/21/2020 Document Reviewed: 08/21/2020 [employer] Patient Education ? 2022 [employer].[facility] 08-25-2023 History of Present illness Narrative* Varghese Caal MD - 08/25/2023 11:40 AM EDT Subjective Leighton Arciniega is a 77 y.o. [...] Doubtful there is been a change. In allregards he appears to be doing well because [...] 1 mg under the skin 1 (one) timeper week., Disp: , Rfl: sildenafil (Viagra) 100 mg tablet, take 1 tablet by mouth 1 hour prior to intercourse if needed, Disp: , Rfl: simvastatin (Zocor) 20 mg tablet, Take 0.5 tablets (10 mg) by mouth once daily at bedtime., Disp: ,Rfl: spironolactone (Aldactone) 25 mg tablet, Take 1 [...] the direction and in the presence of Jarad Caal MD. Provider Attestation - Scribe documentation All medical record entries made by the Scribe were at my direction and personally dictated by me. Ihave reviewed the chart and agree that the record accurately reflects my personal performance of the history, physical exam, discussion and plan. documented in [facility]Select [facility] Work Phone: [phone]) 423-795806-05-2024 Instructions* Patient Instructions* Jo Ann Ferrer CMA - 08/25/2023 11:40 [...] time of your visit. documented in this encounterSelect [facility] Work Phone: 1(369) 696-659511-22-2023 History of Present illness Narrative* Varghese Caal MD - 02/10/2023 11:30 AM EST Subjective Leighton Arciniega is a 77 y.o. [...] elicit any cardiac symptomatology from him whatsoever andbecause of this we believe him to be [...] 1 mg under the skin 1 (one) timeper week., Disp: , Rfl: simvastatin (Zocor) 20 mg tablet, Take 0.5 tablets (10 mg) by mouth once daily at bedtime., Disp: ,Rfl: spironolactone (Aldactone) 25 mg tablet, Take 1 [...] on recent pacemaker checks. documented in this encounterSelect [facility] Work Phone: [phone]) 189-743011-22-2023 Instructions* Patient Instructions* Alize James LPN - 02/10/2023 11:30 AM [...] follow up per routine documented in this encounterSelect [facility] Work Phone: [phone] 325-933402-23-2023 NotePROCEDURE: XR KNEE LT 4V or > HISTORY: Pain of left [...] Electronically authenticated by: JOE DU Date: 2022-05-14 18:40[facility]* Diagnosis Sick sinus syndrome (CMS/HCC)- Primary Sinoatrial node dysfunction Mobitz type II atrioventricular block Mobitz (type) II atrioventricular block Pacemaker Cardiac pacemaker in situ Essential hypertension Unspecified essential hypertension Dilated cardiomyopathy (CMS/HCC) Other primary cardiomyopathies Paroxysmal atrial fibrillation (CMS/HCC) Atrial fibrillation documented in this encounter [facility] Work Phone: Evaluation note* Diagnosis Essential hypertension- Primary Unspecified essential hypertension Sick sinus syndrome (Multi) Sinoatrial node dysfunction Mixed hyperlipidemia Paroxysmal atrial fibrillation (Multi) Atrial fibrillation Dilated cardiomyopathy (Multi) Other primary cardiomyopathies Pacemaker Cardiac pacemaker in situ BMI 33.0-33.9,adult documented in this encounter [facility] Work Phone: Evaluation note* Diagnosis Other atopic dermatitis- Primary Seborrheic keratosis Lentigines History of SCC (squamous cell carcinoma) of skin Personal history of other malignant neoplasm of skin documented in this encounter [facility] luciernaEvaluation note* Diagnosis Paroxysmal atrial fibrillation (Multi)- Primary Atrial fibrillation Sick sinus syndrome (Multi) Sinoatrial node dysfunction Pacemaker Cardiac pacemaker in situ Essential hypertension Unspecified essential hypertension Cardiomyopathy, unspecified type (Multi) Mixed hyperlipidemia Stage 4 chronic kidney disease (Multi) Non-smoker BMI 30.0-30.9,adult documented in this encounter [facility] Work Phone: Evaluation note* Diagnosis VIRGILIO (obstructive sleep apnea)- Primary Obstructive sleep apnea (adult) (pediatric) Hypersomnia Hypersomnia, unspecified PLMD (periodic limb movement disorder) Periodic limb movement disorder Obesity due to excess calories, unspecified classification, unspecified whether serious comorbidity present Snoring Other dyspnea and respiratory abnormality documented in this encounter [facility] HealthcareEvaluation noteNo assessment information availableLutheran Hospital Work Phone: History of Present illness NarrativePatient returns in follow-up of problems as noted. He is doing well. I cannot elicit any angina CHF arrhythmia or neurologic symptomatology. He followed my dietary [...] on the basis of his improve lifestyle modification.-[facility]-Sergio [address] DO Work Phone: History of Present [...] the merits of diet and weight loss. [facility]chemiaPe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 IIIMOBIPeace[facility] Flatora DO Work Phone: Reason for referral (narrative)* Consultation (Routine) - Authorized Specialty Diagnoses / Procedures Referred By Elida t Referred To Contact Cardiology Diagnoses Sick sinus syndrome ([facility]) Procedures Follow Up In Cardiology Varghese Caal MD [address] [facility] [address], [address] [address] Varghese Caal MD [address] [facility] [address], [address] [place] [address] Referral ID Status Reason Start Date Expiration Date V isits Requested Visits Authorized [id number] Authorized 02/10/2023 02/10/2024 1 1 [facility] Work Phone: Reason for referral (narrative)* Consultation (Routine) - Authorized Specialty Diagnoses / Procedures Referred By Contac t Referred To Contact Cardiology Diagnoses Sick sinus syndrome (Multi) Procedures Follow Up In Cardiology Varghese Caal MD [address] [facility] [address], [address] [place] [id number] Osvaldo Dickinson MD [address] [place] [address] 2, [address] [place] [address] Referral ID Status Reason Start Date Expiration Date V isits Requested Visits Authorized [id number] Authorized 08/25/2023 08/24/2024 1 1 [facility] Work Phone: Chief Complaint LEIGHTON ARCINIEGA is [...] erotic cardiovascular disease: Mother, Brother(V17.49, Z82.49) Status:Active Relationship Condition Age at Onset Recorded Date/T maicol mother Congestive heart failure Unknown Diabetes mellitus Unknown Myocardial infarction Unknown Heart disease Unknown father Chronic kidney disease Unknown sister Liver failure Unknown brother Congestive heart failure Unknown brother Heart disease Unknown Summary Purpose Advance Directives No Advanced Directives Records Found Advance Directive Response Recorded Date/ Time Advance Directives No January 2:23pm Chief Complaint and Reason for Visit Chief Complaint Admit Date Unknown March 11, 2024 1:57am Unknown March 28, 2024 8: 47pm Congestive Heart Failure May 09, 2024 7:47pm Congestive Heart Failure May 13, 2024 12:34pm Reason for Visit Admit Date CHF (congestive heart failure) May 09, 2024 7:47pm Chronic kidney disease May 09 7:47pm Pacemaker May 09, 2024 7:47pm Sick sinus syndrome May 09, 2024 7:47pm Additional Source Comments (unrecognized sect ion and content) No Status Records FoundNo Status Records FoundNo Status Records FoundNo Status Records FoundNo Status Records FoundNo Status Records FoundNo Status Records FoundNo Status Records FoundNo Status Records FoundNo Status Records FoundNo Status Records Found INFORMATION SOURCE (unrecogn ized section and content) DATE CREATED AUTHOR 06/01/2022 [facility] p[facility] DATE CREATED AUTHOR AUTHOR'S ORGANIZ ATION 07/03/2022 [employer] DATE CREATED AUTHOR AUTHOR'S ORGANIZ ATION 11/05/2022 [facility] DATE CREATED AUTHOR AUTHOR'S ORGANIZ ATION 01/18/2024 [facility] EPIC DATE CREATED AUTHOR AUTHOR'S ORGANIZ ATION 02/21/2024 [facility] DATE CREATED AUTHOR AUTHOR'S ORGANIZ ATION 03/04/2024 [facility] DATE CREATED AUTHOR AUTHOR'S ORGANIZ ATION 04/02/2024 [place] [facility] DATE CREATED AUTHOR AUTHOR'S ORGANIZ ATION 04/07/2024 [facility] DATE CREATED AUTHOR AUTHOR'S ORGANIZ ATION 04/28/2024 [place] [facility] DATE CREATED AUTHOR AUTHOR'S ORGANIZ ATION 05/13/2024 [facility] DATE CREATED AUTHOR AUTHOR'S ORGANIZ ATION 05/17/2024 [facility] ical [facility] Reason for Visit (unrecogniz ed section and content) Reason Comments Follow-up 6-9mo Reason Comments Follow-up 6-9 months Specialty Diagnoses / Procedures Referred By Elida gifford Referred To Contact Cardiology Diagnoses Sick sinus syndrome (Multi) Procedures Follow Up In Cardiology Varghese Caal MD [address] [place] [address] [address], [address] [address] Varghese Caal MD [address] [place] [address] [address], [address] [address] Referral ID Status Reason Start Date Expiration Date V isits Requested Visits Authorized [id number] Authorized 02/10/2023 02/10/2024 1 1 Reason Comments Skin Check Follow-up Reason Comments Follow-up 6-9 months Specialty Diagnoses / Procedures Referred By Contac t Referred To Contact Cardiology Diagnoses Sick sinus syndrome (Multi) Procedures Follow Up In Cardiology Varghese Caal MD Traboulssi, Mourhaf, MD [address] [place] [address] [address], [address] [address] Phone: tel: fax: Referral ID Status Reason Start Date Expiration Date V isits Requested Visits Authorized [id number] Authorized 08/25/2023 08/24/2024 1 1 Reason Comments Sleep Apnea Care Teams (unrecognized sec tion and content) Team Status: Active Member Role Status Dates Lori Medina MD Primary Care Provider Active Team Status: Inactive Member Role Status Dates Benton Vasquez DO Attending Provider Active S tart: March 11, 2024 End: March 11, 2024 Team Status: Inactive Member Role Status Dates Benton Vasquez DO Attending Provider Active S tart: March 28, 2024 End: March 28, 2024 Team Status: Active Member Role Status Dates Sumanth Johnson DO Attending Provider Active Sta rt: April 08, 2024 Team Status: Inactive Member Role Status Dates Lori Medina MD Primary Care Provider Active Start: May 09, 2024 End: May 13, 2024 Alexa Corona MD Admit Provider, Att ending Provider Active Start: May 09, 2024 End: May 13, 2024 Gabriela Adame RN Other Provider Active Star t: May 09, 2024 End: May 13, 2024 Shirley Harvey DO Other Provider Active Start : May 09, 2024 End: May 13, 2024 Rupert Rey MD Other Provider Active Start: May 09, 2024 End: May 13, 2024 Varghese Caal MD Other Provider Active Start: April End: May 13, 2024 Osvaldo Dickinson MD Other Provider Active St art: May 09, 2024 End: May 13, 2024 Ben Calderon MD Other Provider Active Start: May 09, 2024 End: May 13, 2024 Allie Ramírez APRN Other Provider Active Start : May 09, 2024 End: May 13, 2024 Evelyn Zhang MD Other Provider Active Start: ebruary 2024 End: May 13, 2024 Lorenzo Dotson MD Other Provider Active Start: May 09, 2024 End: May 13, 2024 Rajat Foster MD Other Provider Active Start: ebruary 2024 End: May 13, 2024 Sanaz Stewart [facility]- Other Provider Active Sta rt: May 09, 2024 End: May 13, 2024 Team Status: Active Member Role Status Dates Lori Medina MD Primary Care Provider Active Start: May 13, 2024 Alexa Corona MD Admit Provider, [facility] er Provider Active Start: May 13, 2024 Gabriela Adaem RN Other Provider Active Star t: May 13, 2024 W Manpreet Harvey DO Other Provider Active Start : May 13, 2024 Rupert Rey MD Other Provider Active Start: May 13, 2024 Varghese Caal MD Other Provider Active Start: April Osvaldo Dickinson MD Other Provider Active St art: May 13, 2024 Ben Calderon MD Other Provider Active Start: May 13, 2024 Allie Ramírez APRN Other Provider Active Start : May 13, 2024 Evelyn Zhang MD Other Provider Active Start: ebruary 2024 Lorenzo Dotson MD Other Provider Active Start: May 13, 2024 Rajat Foster MD Other Provider Active Start: ebruary 2024 Sanaz Stewart , CLASSER- Other Provider Active Sta rt: May 13, 2024 John Nettles MD Attending Provider Active Start: April Well [employer]ging [employer] Relationship Specialty Start Date End Date DemarcusAndrea biswas DO [address] [place] [address] PCP - General 03/22/99 Well Logging [employer] Relationship Specialty Start Date End Date DemarcuszulayAndrea DO [facility] [place] [address] PCP - General 03/22/99 Well [employer] Relationship Specialty Start Date End Date Lori Medina MD [address] [place] [address] PCP - General Family Medicine 10/09/22 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 [employer] provides no warranty or guarantee of the accuracy or completeness of information in this document.
--- NOTE | 2024-05-18 22:18 | ED.SOB1 ---
HPI - SOB/Dyspnea General Chief Complaint: Shortness of Breath/Dyspnea Stated Complaint: SOB Time Seen by Provider: 05/18/24 22:09 Source: patient and other Source comment: ems Mode of arrival: ambulance History of Present Illness HPI Narrative: This 78-year-old male who was recently discharged from [facility] on Wednesday to [facility] presents for evaluation of increasing shortness of breath. The patient wears supplemental oxygen but despite that has been increasingly short of breath. He has a cough with sometimes bloody and sometimes yellow-green phlegm. He was admitted to this facility earlier this month for bilateral pneumonia that was thought to be nosocomial in origin. He was also found to have a low ejection fraction that had gone from 50% to 15 to 20% recently and was transferred to [facility] for further management. He denies any chest pain. He denies any abdominal pain or back pain. He does have chronic lower extremity swelling. He is on Eliquis. I reviewed his MAR and do not see any current antibiotics. He also has an indwelling Gomez catheter. Related Data Home Medications ?Medication ?Instructions ?Recorded ?Confirmed acetaminophen 500 mg capsule 1,000 mg PO Q6H PRN fever or pain 02/26/24 05/18/24 allopurinol 300 mg tablet 300 mg PO DAILY 02/26/24 05/18/24 apixaban 5 mg tablet (Eliquis) 5 mg PO Q12H 02/26/24 05/18/24 aspirin 81 mg tablet,delayed 81 mg PO .weekly 02/26/24 05/18/24 release (Adult Aspirin Regimen) calcium 315 mg (as 1 tab PO DAILY 02/26/24 05/18/24 citrate)-vitamin D3 5 mcg (200 unit) tablet (Calcium Citrate + D) carvedilol 6.25 mg tablet 6.25 mg PO Q12H 02/26/24 05/18/24 cyanocobalamin (vitamin B-12) 1,000 mcg PO DAILY 02/26/24 05/18/24 1,000 mcg tablet (Vitamin B-12) multivitamin (Daily Multi-Vitamin 1 tab PO DAILY 02/26/24 05/19/24 tablet) omeprazole 20 mg capsule,delayed 20 mg PO DAILY 02/26/24 05/19/24 release semaglutide 1 mg/dose (4 mg/3 mL) 1 mg subcut QWEEK 02/26/24 05/19/24 subcutaneous pen injector (Ozempic) simvastatin 20 mg tablet 20 mg PO DAILY 02/26/24 05/19/24 spironolactone 25 mg tablet 25 mg PO DAILY 02/26/24 05/19/24 terazosin 10 mg capsule 10 mg PO BEDTIME 02/26/24 05/19/24 finasteride 5 mg tablet 5 mg PO DAILY 05/03/24 05/18/24 bumetanide 0.5 mg tablet 1.5 mg PO DAILY 05/19/24 05/19/24 hydralazine 50 mg tablet 50 mg PO BID 05/19/24 05/19/24 insulin aspart U-100 100 unit/mL 1 sliding scale dose subcut ACHS 05/19/24 05/19/24 (3 mL) subcutaneous pen (Novolog FlexPen U-100 Insulin aspart) insulin glargine 100 unit/mL (3 8 unit subcut .q hs 05/19/24 05/19/24 mL) subcutaneous pen (Lantus Solostar U-100 Insulin) insulin glargine 100 unit/mL (3 18 unit subcut QAM 05/19/24 05/19/24 mL) subcutaneous pen (Lantus Solostar U-100 Insulin) isosorbide mononitrate 30 mg 30 mg PO QAM 05/19/24 05/19/24 tablet,extended release 24 hr potassium chloride 10 mEq 10 meq PO QAM 05/19/24 05/19/24 tablet,extended release Previous Rx's ?Medication ?Instructions ?Recorded albuterol sulfate 2.5 mg/3 mL 2.5 mg (3 mL) inhalation Q4H PRN 05/06/24 (0.083 %) solution for nebulization bronchospasm #90 mL Allergies Allergy/AdvReac Type Severity Reaction Status Date / Time fosinopril (From Monopril) Allergy Severe shortness Verified 05/18/24 22:15 of breath metoprolol Allergy Severe shortness Verified 05/18/24 22:15 of breath strawberry Allergy Severe Rash Verified 05/18/24 22:15 Review of Systems ROS Status of ROS 10 or more systems reviewed and unremarkable except as noted in history and below [facility] Medical History (Updated 05/19/24 @ 00:41 by Dacia Rene MD) Hypoxia ?R09.02 - Hypoxemia (ICD-10) Congestive heart failure ?I50.9 - Heart failure, unspecified (ICD-10) Pneumonia ?J18.9 - Pneumonia, unspecified organism (ICD-10) Acute respiratory distress ?R06.03 - Acute respiratory distress (ICD-10) Pneumonia ?J18.9 - Pneumonia, unspecified organism (ICD-10) Acute on chronic diastolic (congestive) heart failure ?I50.33 - Acute on chronic diastolic (congestive) heart failure (ICD-10) Hospital acquired PNA ?J18.9 - Pneumonia, unspecified organism (ICD-10) ?Y95 - Nosocomial condition (ICD-10) Shortness of breath ?R06.02 - Shortness of breath (ICD-10) Congestive heart failure ?I50.9 - Heart failure, unspecified (ICD-10) Pneumonia ?J18.9 - Pneumonia, unspecified organism (ICD-10) Severe sepsis ?A41.9 - Sepsis, unspecified organism (ICD-10) ?R65.20 - Severe sepsis without septic shock (ICD-10) COPD exacerbation ?J44.1 - Chronic obstructive pulmonary disease with (acute) exacerbation (ICD-10) Acute exacerbation of chronic heart failure ?I50.9 - Heart failure, unspecified (ICD-10) Acute hypoxemic respiratory failure ?J96.01 - Acute respiratory failure with hypoxia (ICD-10) Acute kidney injury ?N17.9 - Acute kidney failure, unspecified (ICD-10) Bladder spasm ?N32.89 - Other specified disorders of bladder (ICD-10) Urinary tract infection ?N39.0 - Urinary tract infection, site not specified (ICD-10) Urinary tract infection ?N39.0 - Urinary tract infection, site not specified (ICD-10) Failure of outpatient treatment ?Z78.9 - Other specified health status (ICD-10) Urinary tract infection ?N39.0 - Urinary tract infection, site not specified (ICD-10) Skin cancer ?C44.90 - Unspecified malignant neoplasm of skin, unspecified (ICD-10) Myocardial infarction ?I21.9 - Acute myocardial infarction, unspecified (ICD-10) Pacemaker ?Z95.0 - Presence of cardiac pacemaker (ICD-10) CKD (chronic kidney disease) ?N18.9 - Chronic kidney disease, unspecified (ICD-10) CAD (coronary artery disease) ?I25.10 - Atherosclerotic heart disease of [place] coronary artery without angina pectoris (ICD-10) A-fib ?I48.91 - Unspecified atrial fibrillation (ICD-10) Erectile dysfunction ?N52.9 - Male erectile dysfunction, unspecified (ICD-10) UTI (urinary tract infection) ?N39.0 - Urinary tract infection, site not specified (ICD-10) GERD (gastroesophageal reflux disease) ?K21.9 - Gastro-esophageal reflux disease without esophagitis (ICD-10) Hypertension ?I10 - Essential (primary) hypertension (ICD-10) Diabetes ?E11.9 - Type 2 diabetes mellitus without complications (ICD-10) Surgical History History of arthroscopic knee surgery ?Z98.890 - Other specified postprocedural states (ICD-10) Hx of tonsillectomy ?Z90.89 - Acquired absence of other organs (ICD-10) Family History Mother Family history of CHF (congestive heart failure) Family history of myocardial infarction Family history of hypertension Family history of diabetes mellitus Family history of COPD (chronic obstructive pulmonary disease) Grandmother Family history of CHF (congestive heart failure) Brother Family history of CHF (congestive heart failure) Family history of myocardial infarction Family history of hypertension Family history of COPD (chronic obstructive pulmonary disease) Father Kidney failure Social History Within the past year, how often did you have a drink containing alcohol: never Score interpretation: A score less than 4 is consistent with normal alcohol consumption. Smoking status: Former smoker Non-prescribed substance use: denies use Known occupational exposures/hazards: No Highest level of school completed/degree received: some college, no degree Do you want help with school or training: No Little interest or pleasure in doing things: not at all Feeling down, depressed, or hopeless: not at all Gender Identity: male Exam Narrative Exam Narrative: Vital signs and Nursing Notes reviewed: Patient is febrile with a normal pulse, he is tachypneic with a respiratory to 24, blood pressure stable at 131/65, he is hypoxic with pulse ox of 92% on 4 L nasal cannula General: Awake, alert, oriented, nontoxic but mildly ill-appearing adult male, he is speaking in 3-4 word sentences with conversational dyspnea HEENT: Normocephalic atraumatic, mucous membranes are moist and pink, eyes are clear, normal conjunctiva, vision is grossly intact, posterior pharynx is normal in appearance. Neck: Supple, no appreciable JVD Chest: Coarse breath sounds with mild accessory muscle use, there is bibasilar rales, right greater than left, patient noted to be hypoxic with pulse ox of 92% on 4 L nasal cannula with conversational dyspnea CVS: Regular rate and rhythm S1-S2, no murmurs rubs or gallops, pulses are brisk and equal bilaterally ABD: Soft, nondistended, nontender, no rebound guarding or rigidity, bowel sounds are normal, no pulsatile masses appreciated Extremities: Moving all extremities, no lower extremity tenderness or swelling noted, 1+ lower extremity swelling Skin: Normal in appearance with scattered areas of ecchymosis on upper extremities bilaterally Neuro: No focal deficits Constitutional Vital Signs, click to edit/add: Last Vital Signs Temp 98.1 F 05/19/24 22:23 Pulse 90 05/19/24 23:22 Resp 31 H 05/19/24 22:00 BP 126/68 05/19/24 22:00 Pulse Ox 96 05/19/24 23:22 O2 Del Method BIPAP 05/19/24 20:00 O2 Flow Rate 40 05/19/24 13:15 FiO2 65 05/19/24 23:22 Course Course Hospital Course: Patient with history of recurrent UTIs, had a procedure yesterday with a cystoscopy and Gomez catheter changed at the urologist office, they did obtain a urine sample and it is currently residing at [facility], seen in ER due to fever and increasing shortness of breath found to have acute combined congestive heart failure secondary to the acute UTI and likely healthcare acquired pneumonia. Patient placed on Zosyn and levofloxacin this morning for broader spectrum coverage, diuresed with Bumex drip at a slower rate to preserve kidney function, however this afternoon had acute onset of chest pain and shortness of breath, chest x-ray shows flash pulmonary edema, patient initially placed on Vapotherm and that was ineffective so placed on BiPAP and transferred back to the intensive care unit, currently is on BiPAP at 65%, not great urine output about 800 cc for the day, chest x-ray showing possible progression of the pneumonia as well so antibiotics were changed to Fortaz, clindamycin for anaerobic coverage and linezolid for MRSA coverage while trying to preserve kidney function, this case patient's deterioration and pharmacy technician infusion up at [facility], discussed with hospitalist there and agreed to accept patient in transfer to their intensive care unit. Medications see list. He can follow-up with me in the office once he is discharged from the hospital and/or rehab Vital Signs Vital signs: Vital Signs Temperature 101.1 F H 05/18/24 22:05 Pulse Rate 98 H 05/18/24 22:05 Respiratory Rate 24 H 05/18/24 22:05 Blood Pressure 131/65 05/18/24 22:05 Pulse Oximetry 92 L 05/18/24 22:05 Oxygen Delivery Method Nasal Cannula 05/18/24 22:05 Oxygen Delivery Flow Rate 4 05/18/24 22:05 Temperature 98.1 F 05/19/24 22:23 Pulse Rate 90 05/19/24 23:22 Respiratory Rate 31 H 05/19/24 22:00 Blood Pressure 126/68 05/19/24 22:00 Pulse Oximetry 96 05/19/24 23:22 Oxygen Delivery Method BIPAP 05/19/24 20:00 Oxygen Delivery Flow Rate 40 05/19/24 13:15 Fraction of Inspired Oxygen 65 05/19/24 23:22 MDM - SOB/Dyspnea MDM Narrative Medical decision making narrative: This 78 male with a history of CHF and recent hospitalizations for CHF and pneumonia who was admitted here and transferred to [facility] for diuresis and treatment of his acute and chronic medical conditions and was discharged home on Wednesday to [facility] facility is brought to the emergency department from that facility for evaluation of shortness of breath and fever. According to the prison records he had a fever of 102.8 at the prison. He complained of increasing shortness of breath. He does wear supplemental oxygen. The patient states that he cannot get his oxygen over 85% at the prison. He also has an indwelling Gomez catheter. Upon arrival he was febrile, tachycardic with pulse ox of 93% on 4 L nasal cannula. The patient states that since he has been at [facility] has not been receiving his diuretics. A septic workup was ordered due to his fever and tachycardia. EKG was a paced rhythm. Chest x-ray shows bilateral pulmonary infiltrates but does appear to be improved since the last chest x-ray he had here on May 07. An IV was placed and he was medicated with Tylenol and a 250 cc bolus due to his fever and concerns for dehydration. He does have a Gomez catheter in place. CBC with differential, comprehensive metabolic profile, BNP, lactic acid, influenza, COVID-19, troponin and urinalysis were ordered. His white count is normal. He is mildly anemic with a hemoglobin of 8.4. pH on his blood gas was 7.508. pCO2 was low at 31.8. He has normal lactic acid of 1. Troponin is 51.8. BNP is consistently elevated and today is again greater than 35,000. His BUN and creatinine today are improved from his prior visit, his BUN is 39 and creatinine is 1.74. Influenza and COVID testing are negative. 2 sets of blood cultures are pending at this time. His urine is positive for greater than 100 white blood cells per high-power field. He was given 40 mg of IV Lasix for the fluid overload condition and treated with IV Zosyn for the UTI. On reevaluation he states he is feeling much better. He feels that he is breathing better at this time. His pulse ox is in the mid 90s which he states is markedly improved for him. The case was discussed with the hospitalist and he is excepted for admission to [facility] with telemetry monitoring. Medical Records Attestation: I reviewed the patient's medical records. Lab Data Labs: Lab Results 05/18/24 05/18/24 05/18/24 Range/Units 22:19 22:23 22:35 WBC 9.5 (4.0-11.0) 10^3/uL RBC 2.61 L (4.70-6.10) 10^6/uL Hgb 8.4 L (14.0-18.0) g/dL Hct 25.1 L (42.0-54.0) % MCV 96.2 H (80.0-94.0) fL MCH 32.2 (25.9-34.0) pg MCHC 33.5 (29.9-35.2) g/dL RDW 15.5 H (11.0-15.0) % Plt Count 138 L (150-450) 10^3/uL MPV 9.7 (9.5-13.5) fL Neut % (Auto) 83.3 H (43.0-75.0) % Lymph % (Auto) 8.5 L (20.5-60.0) % [place] % (Auto) 7.1 (1.7-12.0) % Eos % (Auto) 0.5 L (0.9-7.0) % Baso % (Auto) 0.1 L (0.2-2.0) % Neut # (Auto) 7.9 H (1.4-6.5) 10^3/uL Lymph # (Auto) 0.8 L (1.2-3.8) 10^3/uL [place] # (Auto) 0.7 (0.3-0.8) 10^3/uL Eos # (Auto) 0.1 (0.0-0.7) 10^3/uL Baso # (Auto) 0.0 (0.0-0.1) 10^3/uL Abs Immat Gran (auto) 0.05 H (0.00-0.03) 10^3/uL Imm/Tot Granulo (auto) 0.5 (0.0-0.5) % Puncture Site R.radial ABG pH 7.508 H* (7.350-7.450) ABG pCO2 31.8 L (35.0-45.0) mmHg ABG pO2 55.8 L* (80.0-100.0) mmHg ABG HCO3 25.2 (22.0-26.0) mmol/L ABG O2 Saturation 92.3 % ABG Base Excess 2.2 H (-2.0-2.0) mmol/L Rustam Test Positive (POSITIVE) O2 Liters/Min 4 Sodium 133 L (136-145) mmol/L Potassium 3.9 (3.5-5.1) mmol/L Chloride 98 (98-107) mmol/L Carbon Dioxide 25.4 (21.0-32.0) mmol/L Anion Gap 13.5 BUN 39.0 H (7.0-18.0) mg/dL Creatinine 1.74 H (0.70-1.30) mg/dL Est GFR ( Amer) 46 L (>=60 mL/min/1.73m^2) Est GFR (Non-Af Amer) 38 L (>=60 mL/min/1.73m^2) BUN/Creatinine Ratio 22.4 Glucose 237 H (74-106) mg/dL Lactate 1.0 (0.4-2.0) mmol/L Calcium 8.1 L (8.5-10.1) mg/dL Magnesium (1.8-2.4) mg/dL Total Bilirubin 0.5 (0.2-1.0) mg/dL AST 14 L (15-37) U/L ALT 21 (16-63) U/L Alkaline Phosphatase 71 (46-116) U/L Troponin I High Sens 51.9 (4.0-76.1) pg/mL NT-Pro-B Natriuret Pep >39360.0 H* (<=1800.0) pg/mL Total Protein 5.2 L (6.4-8.2) g/dL Albumin 2.0 L (3.4-5.0) g/dL Globulin 3.2 g/dL Albumin/Globulin Ratio 0.6 Urine Color (YELLOW) Urine Clarity (CLEAR) Urine pH (5.0-9.0) Ur Specific [place] (1.005-1.025) Urine Protein (NEG/TRACE) mg/dL Urine Glucose (UA) (NEGATIVE) mg/dL Urine Ketones (NEGATIVE) mg/dL Urine Occult Blood (NEGATIVE) Urine Nitrite (NEGATIVE) Urine Bilirubin (NEGATIVE) Urine Urobilinogen (0.2-1.0) EU/dL Ur Leukocyte Esterase (NEGATIVE) Urine RBC (0-2) #/HPF Urine WBC (NONE SEEN) #/HPF Ur Squamous Epith Cells (NONE/RARE) #/LPF Urine Crystals (None Seen) #/HPF Urine Bacteria (NONE SEEN) #/HPF Urine Casts (NONE SEEN) #/LPF Hyaline Casts Urine Mucus (NONE SEEN) Ur Culture Indicated? Influenza Type A Ag Negative Influenza Type B Ag Negative SARS-CoV-2 Ag (CV2AG) Negative (NEGATIVE) 05/18/24 05/19/24 Range/Units 22:55 05:32 WBC 8.2 (4.0-11.0) 10^3/uL RBC 2.46 L (4.70-6.10) 10^6/uL Hgb 7.8 L (14.0-18.0) g/dL Hct 23.6 L* (42.0-54.0) % MCV 95.9 H (80.0-94.0) fL MCH 31.7 (25.9-34.0) pg MCHC 33.1 (29.9-35.2) g/dL RDW 15.4 H (11.0-15.0) % Plt Count 117 L (150-450) 10^3/uL MPV 8.8 L (9.5-13.5) fL Neut % (Auto) 77.8 H (43.0-75.0) % Lymph % (Auto) 13.2 L (20.5-60.0) % [place] % (Auto) 7.5 (1.7-12.0) % Eos % (Auto) 0.9 (0.9-7.0) % Baso % (Auto) 0.1 L (0.2-2.0) % Neut # (Auto) 6.4 (1.4-6.5) 10^3/uL Lymph # (Auto) 1.1 L (1.2-3.8) 10^3/uL [place] # (Auto) 0.6 (0.3-0.8) 10^3/uL Eos # (Auto) 0.1 (0.0-0.7) 10^3/uL Baso # (Auto) 0.0 (0.0-0.1) 10^3/uL Abs Immat Gran (auto) 0.04 H (0.00-0.03) 10^3/uL Imm/Tot Granulo (auto) 0.5 (0.0-0.5) % Puncture Site ABG pH (7.350-7.450) ABG pCO2 (35.0-45.0) mmHg ABG pO2 (80.0-100.0) mmHg ABG HCO3 (22.0-26.0) mmol/L ABG O2 Saturation % ABG Base Excess (-2.0-2.0) mmol/L Rustam Test (POSITIVE) O2 Liters/Min Sodium 135 L (136-145) mmol/L Potassium 3.6 (3.5-5.1) mmol/L Chloride 102 (98-107) mmol/L Carbon Dioxide 24.5 (21.0-32.0) mmol/L Anion Gap 12.1 BUN 41.0 H (7.0-18.0) mg/dL Creatinine 1.71 H (0.70-1.30) mg/dL Est GFR ( Amer) 47 L (>=60 mL/min/1.73m^2) Est GFR (Non-Af Amer) 39 L (>=60 mL/min/1.73m^2) BUN/Creatinine Ratio 24.0 Glucose 270 H (74-106) mg/dL Lactate (0.4-2.0) mmol/L Calcium 8.0 L (8.5-10.1) mg/dL Magnesium 1.3 L (1.8-2.4) mg/dL Total Bilirubin (0.2-1.0) mg/dL AST (15-37) U/L ALT (16-63) U/L Alkaline Phosphatase (46-116) U/L Troponin I High Sens (4.0-76.1) pg/mL NT-Pro-B Natriuret Pep (<=1800.0) pg/mL Total Protein (6.4-8.2) g/dL Albumin (3.4-5.0) g/dL Globulin g/dL Albumin/Globulin Ratio Urine Color Lt. yellow (YELLOW) Urine Clarity Cloudy A (CLEAR) Urine pH 5.5 (5.0-9.0) Ur Specific [place] 1.010 (1.005-1.025) Urine Protein 100 A (NEG/TRACE) mg/dL Urine Glucose (UA) 100 A (NEGATIVE) mg/dL Urine Ketones Negative (NEGATIVE) mg/dL Urine Occult Blood Small A (NEGATIVE) Urine Nitrite Negative (NEGATIVE) Urine Bilirubin Negative (NEGATIVE) Urine Urobilinogen 0.2 (0.2-1.0) EU/dL Ur Leukocyte Esterase Small A (NEGATIVE) Urine RBC 2-5 A (0-2) #/HPF Urine WBC >100 A (NONE SEEN) #/HPF Ur Squamous Epith Cells Rare (NONE/RARE) #/LPF Urine Crystals None seen (None Seen) #/HPF Urine Bacteria Moderate A (NONE SEEN) #/HPF Urine Casts Seen A (NONE SEEN) #/LPF Hyaline Casts Few Urine Mucus Trace A (NONE SEEN) Ur Culture Indicated? Yes-[facility] [place] Influenza Type A Ag Influenza Type B Ag SARS-CoV-2 Ag (CV2AG) (NEGATIVE) ECG Data Attestation: I personally reviewed and interpreted this ECG as follows: (Paced rhythm at 105 bpm) Discharge Plan Discharge Chief Complaint: Shortness of Breath/Dyspnea Clinical Impression: CHF (congestive heart failure), Acute UTI, Fever Patient Disposition: Admitted As Inpatient Time of Disposition Decision: 00:41 Condition: Fair Discharge Date/Time: 05/19/24 00:45
[2024-05-18] MEDS: IPRATROPIUM/ALBUTEROL SULFATE 3 ML AMPUL.NEB IH (22:26)
[2024-05-18 22:32] LABS: Basophils Percent Auto 0.1 % (0.2-2.0); Eosinophils Absolute Auto 0.1 10^3/uL (0.0-0.7); Eosinophils Percent Auto 0.5 % (0.9-7.0); Hematocrit 25.1 % (42.0-54.0); Hemoglobin 8.4 g/dL (14.0-18.0); Immature Granulocytes Abs Auto 0.05 10^3/uL (0.00-0.03); Immature Granulocytes Pct Auto 0.5 % (0.0-0.5); Lymphocytes Absolute Auto 0.8 10^3/uL (1.2-3.8); Lymphocytes Percent Auto 8.5 % (20.5-60.0); Mean Corpuscular HGB Conc 33.5 g/dL (29.9-35.2); Mean Corpuscular Hemoglobin 32.2 pg (25.9-34.0); Mean Corpuscular Volume 96.2 fL (80.0-94.0); Mean Platelet Volume 9.7 fL (9.5-13.5); Monocytes Absolute Auto 0.7 10^3/uL (0.3-0.8); Monocytes Percent Auto 7.1 % (1.7-12.0); Neutrophils Absolute Auto 7.9 10^3/uL (1.4-6.5); Neutrophils Percent Auto 83.3 % (43.0-75.0); Platelet Count 138 10^3/uL (150-450); Red Blood Count 2.61 10^6/uL (4.70-6.10); Red Cell Distribution Width 15.5 % (11.0-15.0); White Blood Count 9.5 10^3/uL (4.0-11.0)
[2024-05-18 22:48] LABS: ABG PCO2 31.8 mmHg (35.0-45.0); Allen Test POSITIVE (POSITIVE); Base Excess ABG 2.2 mmol/L (-2.0-2.0); HCO3 ABG 25.2 mmol/L (22.0-26.0); Liters per Minute 4; O2 Mode NASAL CANNULA; Oxygen Saturation ABG 92.3 %; Puncture Site R.RADIAL
[2024-05-18] MEDS: 0.9 % SODIUM CHLORIDE 1,000 ML 250 ML IV (22:49)
[2024-05-18] MEDS: ACETAMINOPHEN 325 MG TABLET 650 MG PO (22:49)
[2024-05-18 22:50] LABS: pH ABG 7.508 (7.350-7.450)
[2024-05-18 22:51] LABS: PO2 ABG 55.8 mmHg (80.0-100.0)
[2024-05-18 22:51] LABS: Influenza Virus A Antigen Negative; Influenza Virus B Antigen Negative; Internal Control Within Normal Limits; SARS-CoV-2 Ag NEGATIVE (NEGATIVE)
[2024-05-18 22:56] LABS: Alanine Aminotransferase 21 U/L (16-63); Albumin Globulin Ratio 0.6; Alkaline Phosphatase 71 U/L (46-116); Anion Gap 13.5; Aspartate Amino Transferase 14 U/L (15-37); BUN Creatinine Ratio 22.4; Bilirubin Total 0.5 mg/dL (0.2-1.0); Calcium 8.1 mg/dL (8.5-10.1); Carbon Dioxide 25.4 mmol/L (21.0-32.0); Chloride 98 mmol/L (98-107); Estimated GFR (African America 46 (>=60 mL/min/1.73m^2); Estimated GFR (Non-African Ame 38 (>=60 mL/min/1.73m^2); Globulin 3.2 g/dL; Glucose 237 mg/dL (74-106); Potassium 3.9 mmol/L (3.5-5.1); Sodium 133 mmol/L (136-145); Total Protein 5.2 g/dL (6.4-8.2); Troponin I High Sensitivity 51.9 pg/mL (4.0-76.1)
[2024-05-18 22:59] LABS: NT Pro B Type Natriuretic Pept >35000.0 pg/mL (<=1800.0)
[2024-05-18 23:05] LABS: Bilirubin Urine NEGATIVE (NEGATIVE); Blood Urine SMALL (NEGATIVE); Clarity Urine CLOUDY (CLEAR); Color Urine LT. YELLOW (YELLOW); Glucose Urine UA 100 mg/dL (NEGATIVE); Ketones Urine NEGATIVE (NEGATIVE); Leukocyte Esterase Urine SMALL (NEGATIVE); Nitrite Urine NEGATIVE (NEGATIVE); Protein Urine 100 mg/dL (NEG/TRACE); Urobilinogen Urine 0.2 EU/dL (0.2-1.0); pH Urine 5.5 (5.0-9.0)
[2024-05-18 23:13] LABS: Bacteria Urine MODERATE #/HPF (NONE SEEN); Cast Seen? SEEN #/LPF (NONE SEEN); Crystals Seen? None Seen #/HPF (None Seen); Hyaline Casts Urine FEW; Mucus Urine TRACE (NONE SEEN); Squamous Epithelial Cell Urine RARE #/LPF (NONE/RARE); Urine Culture Indicated YES-FRMC; WBC Urine >100 #/HPF (NONE SEEN)
[2024-05-18] MEDS: FUROSEMIDE 40 MG/4 ML VIAL IVP (23:23)
[2024-05-19] VITALS (67 sets, daily range): BP systolic 106–144; BP diastolic 62–94; PULSE 75–111; RESP 14; TEMP 36.6–37.4; O2SAT 84–97; BMI 29.4
[2024-05-19] MEDS: PIPERACILLIN SODIUM/TAZOBACTAM 3.375 GM in 0.9 % SODIUM CHLORIDE 50 ML IV ×3 (00:04→14:36)
--- OUTSIDE RECORDS SUMMARY | 2024-05-19 00:58 | XMS_ITS | CCD ---
Author Organization [facility] CliniSysd Care Team Providers Care Pathology Specialist Name Role Phone Andrea Espinoza Unavailable Unavailable [...] Provider Lori Medina MD Primary Care Provider [phone] BLANCA ALONSO Attending Unavailable BLANCA ALONSO Attending Unavailable DANK JONES Attending Unavailable BLANCA ALONSO Attending Unavailable BLANCA ALONSO Attending Unavailable BOBO BRENNER Attending Unavailable LORI MEDINA Primary Care Unavailable LORI MEDINA Primary Care Unavailable BEATA DEGROOT Attending Unavailable Andrea Espinoza DO Primary Care Provider MCGUINN, VARGHESE P Attending Unavailable MCGUINN, VARGHESE [...] Care Provider Alexa Corona MD Admit Provider Alexa Corona MD Attending Provider Deep GODINEZ, Gabriela Other Provider Unavailable Shirley Harvey DO Other Provider Rupert Rey MD Other Provider [phone] Varghese Caal MD Other Provider Osvaldo Dickinson MD Other Provider Ben Calderon MD Other Provider Allie Ramírez APRN Other Provider Evelyn Zhang MD Other Provider Mauri SANDHU, Lorenzo Foreman Other Provider Rajat Foster MD Other Provider [facility] Other Provider [phone] Benton Vasquez Admitting Unavailable Benton Vasquez Attending [...] Enalapril; 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: [enalapril] Drug Allergy 02-10-20 23 [facility] (19 sources) Metoprolol; 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: [metoprolol] Drug Allergy 10-12-19 23 Cough, Unknown -[facility] DO Work Phone: (4 sources) Fosinopril; 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: [Monopril] Drug Allergy 03-16-20 14 [facility] (1 source) Metoprolol Drug Allergy 05-16-19 15 [facility] (2 sources) strawberry allergenic extract Drug Allergy 05-16-19 15 Rash [facility] (1 source) tomato allergenic extract Drug Allergy 05-16-19 15 [facility] (7 sources) Fosinopril; 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: [FOSINOPRIL] Drug Allergy 10-12-19 23 Unknown [facility] Work Phone: (3 sources) hydroCHLOROthiazide / Metoprolol; 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: [hydrochlorothiazide-m etoprolol] Drug Allergy [facility]ository (3 sources) Sweet; 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: [Strawberries] Food allergy (disorder) [facility] (3 sources) Tomatoes; 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: [Tomatoes] Food allergy (disorder) [facility] (1 source) Fosinopril Drug Allergy 05-09-19 [facility] Repository (1 source) Metoprolol Drug Allergy 05-09-19 [facility] Repository (1 source) strawberry allergenic extract Drug Allergy 05-09-19 [facility] Repository Medications Current Medications Medication Drug Class(es) Dates Sig (Normalized) Sig (Original) acetaminophen 500 mg oral capsule (14 sources) Start: 05-09-2024 take 2 capsules by mouth every six hours as needed for pain Acetaminophen 500 mg capsule Active 1000 MG PO Every 6 hours as needed for fever or pain May 09, 2024 12:00am take 1 capsule by mo [facility] every six hours as needed acetaminophen (TylenoL) [...] sources) Polyene Antifungal Start: 08-10-2023 nystatin (Mycostatin) [id number] UNIT/GM powder Indications: Erythema intertrigo Apply to [...] Start: 01-14-2021 take 1 capsule by mo [facility] once daily before mealtime omeprazole (PriLOSEC) 20 [...] 01-14-2021 take 2 tablets by mo [facility] once daily Spironolactone 25 MG Oral Tablet [...] disease (2 sources) Atherosclerotic heart disease of [place] coronary artery without angina pectoris; 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: [Old [...] 06-01-2022 10-11-2022 Chronic Other aftercare (1 source) [employer] (current) use of aspirin; 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: [JAIL CURRENT USE OF ASPIRIN] Onset: 06-01-2022 Episodic Other aftercare (1 source) Other care home (current) drug therapy; 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: [OTH CAN WASHER CURRENT DRUG THERAPY] Onset: 06-01-2022 Episodic Other [...] Urination Onset: 01-24-2024 Unclassified (1 source) A [facility] screening has identified you as FRAIL or [...] Four Ways to Beat the Frailty Risk [email or web address] the [facility] spj-efe-apvgrnqmya/sta q-vehbsa-iqxh-ways-to- zidv-kkz-nfu ilty-risk 05-13-2024 Urinary tract infections (1 source) [...] gap [Moles/Vol] 9.6 mmol/L Normal 6.0-15.0 The Counts Include [address] [facility] Comment on above: Performed By: #### B MP, CBC #### [place] [address] [place] Calcium [Mass/Vol] 8.5 mg/dL Low 8.6-10.3 The Counts Include [facility] Comment on above: Performed By: #### B MP, CBC #### [place] [address] [place] Chloride [Moles/Vol] 103 mmol/L Normal 98-107 The Counts Include [facility] Comment on above: Performed By: #### B MP, CBC #### [facility] [address] [place] [id number] [place] CO2 [Moles/Vol] 33.9 mmol/L High 21.0-31.0 The Counts Include [facility] Comment on above: Performed By: #### B MP, CBC #### [facility] [address] [place] [address] [place] Creatinine [Mass/Vol] 1.51 mg/dL High 0.70-1.30 The Counts Include [facility] Comment on above: Performed By: #### B MP, CBC #### [address] Creatinine Clr Calc Pharmacy 41.63 Normal The Counts Include [facility] Comment on above: Result Comment: PERF ORMED BY: [place] [address] PATHOLOGIST INTERACTIVE MEDIA MARKETING STRATEGIST OSCAR ESCOBAR M.D. Performed By: #### B MP, CBC #### [address] Estimated GFR 46.982 mL/Min Normal The Counts Include [facility] Comment on above: Performed By: #### B MP, CBC #### [address] Glucose [Mass/Vol] 139 mg/dL High 70-100 The Counts Include [facility] Comment on above: Result Comment: [place] Glucose Reference Range is dependent on time and content of last meal. Glucose of more than 200 mg/dL in a nonstressed, ambulatory subject supports the diagnosis of Diabetes Mellitus. ADA recommended reference range Performed By: #### B MP, CBC #### [address] Potassium [Moles/Vol] 3.5 mmol/L Normal 3.5-5.1 The Counts Include [address] [facility] Comment on above: Performed By: #### B MP, CBC #### [address] Sodium [Moles/Vol] 143 mmol/L Normal 136-145 The Counts Include [facility] Comment on above: Performed By: #### B MP, CBC #### [address] Urea nitrogen [Mass/Vol] 62 mg/dL High 7-25 The Counts Include [facility] Comment on above: Performed By: #### B MP, CBC #### [place] [address] [place] Basophils Auto (Bld) [#/Vol] Ordered By: Alexa Corona on 05-13-2024 Basophils (Bld) [#/Vol] Automated basophil count 0.0-0.2 [facility] Basophils/100 WBC Auto (Bld) Ordered By: Alexa Corona on 05-13-2024 Basophils/100 WBC (Bld) Automated basophil % . [facility] Calcium [Mass/volume] in Ser um or PlasmaOrdered By: Alexa Corona on 05-13-2024 Calcium [Mass/Vol] Calcium [Mass/volume] in Serum or Plasma Low 8.6-10.3 [facility] Carbon dioxide, total [Moles /volume] in Serum or PlasmaOrdered By: Alexa Corona on 05-13-2024 CO2 [Moles/Vol] Carbon dioxide, total [Moles/volume] in Serum or Plasma High 21.0-31.0 [facility] Chloride [Moles/volume] in S chelo or PlasmaOrdered By: Alexa Corona on 05-13-2024 Chloride [Moles/Vol] Chloride [Moles/volume] in Serum or Plasma 98-107 [facility] Complete Blood Count Auto Di ffon 05-13-2024 Basophils (Bld) [#/Vol] 0.0 10*3/uL Normal 0.0-0.2 The Counts Include [facility] Comment on above: Result Comment: PERF ORMED BY: [place] [address] PATHOLOGIST INTERACTIVE MEDIA MARKETING STRATEGIST OSCAR ESCOBAR M.D. Performed By: #### B MP, CBC #### [facility] [address] [place] [address] [place] Basophils/100 WBC (Bld) 0.3 % Normal . The Counts Include [facility] Comment on above: Performed By: #### B MP, CBC #### [facility] [address] [place] [address] [place] Eosinophils (Bld) [#/Vol] 0.3 10*3/uL Normal 0.0-0.45 The Counts Include [facility] Comment on above: Performed By: #### B MP, CBC #### [place] [address] [place] Eosinophils/100 WBC (Bld) 5.3 % Normal . The Counts Include [facility] Comment on above: Performed By: #### B MP, CBC #### [address] Erythrocyte distribution width (RBC) [Ratio] 16.3 % High 12.0-14.8 The Counts Include [address] [facility] Comment on above: Performed By: #### B MP, CBC #### [address] Hematocrit (Bld) [Volume fraction] 26.2 % Low 38.8-50.0 The Counts Include [address] [facility] Comment on above: Performed By: #### B MP, CBC #### [address] Hemoglobin (Bld) [Mass/Vol] 9.1 g/dL Low 13.0-17.0 The Counts Include [address] [facility] Comment on above: Performed By: #### B MP, CBC #### [address] Lymphocytes (Bld) [#/Vol] 1.1 10*3/uL Normal 1.00-4.8 The Counts Include [address] [facility] Comment on above: Performed By: #### B MP, CBC #### [address] Lymphocytes/100 WBC (Bld) 17.8 % Normal . The Counts Include [address] [facility] Comment on above: Performed By: #### B MP, CBC #### [address] MCH (RBC) [Entitic mass] 32.8 pg Normal 27.5-35.2 The Counts Include [address] [facility] Comment on above: Performed By: #### B MP, CBC #### [address] MCV (RBC) [Entitic vol] 95.0 fL Normal 83.5-101 The Counts Include [address] [facility] Comment on above: Performed By: #### B MP, CBC #### [address] Mean Corpuscular HGB Conc 34.6 g/dL Normal 32.5-35.6 The Counts Include [address] [facility] Comment on above: Performed By: #### B MP, CBC #### [address] [address] [place] Monocytes (Bld) [#/Vol] 0.5 10*3/uL Normal 0.0-0.8 The Counts Include [facility] Comment on above: Performed By: #### B MP, CBC #### [address] Monocytes/100 WBC (Bld) 7.9 % Normal . The Counts Include [address] [facility] Comment on above: Performed By: #### B MP, CBC #### [address] Neutrophils (Bld) [#/Vol] 4.3 10*3/uL Normal 1.8-7.7 The Counts Include [address] [facility] Comment on above: Performed By: #### B MP, CBC #### [address] Neutrophils/100 WBC (Bld) 68.7 % Normal . The Counts Include [facility] Comment on above: Performed By: #### B MP, CBC #### [address] NRBC% 0.0 /100{WBC} Normal 0-0.5 The Counts Include [address] [facility] Comment on above: Performed By: #### B MP, CBC #### [address] Platelet mean volume (Bld) [Entitic vol] 6.9 fL Normal 6.6-10.1 The Counts Include [address] [facility] Comment on above: Performed By: #### B MP, CBC #### [address] Platelets (Bld) [#/Vol] 115 10*3/uL Low 150-450 The Counts Include [facility] Comment on above: Performed By: #### B MP, CBC #### [address] RBC (Bld) [#/Vol] 2.76 10*6/uL Low 3.90-5.60 The Counts Include [address] [facility] Comment on above: Performed By: #### B MP, CBC #### [address] WBC (Bld) [#/Vol] 6.3 10*3/uL Normal 4.1-10.5 The Counts Include [address] [facility] Comment on above: Performed By: #### B MP, CBC #### [facility] [address] Creatinine [Mass/volume] in Serum or PlasmaOrdered By: Alexa Corona on 05-13-2024 Creatinine [Mass/Vol] Creatinine [Mass/volume] in Serum or Plasma High 0.70-1.30 [facility] Eosinophils Auto (Bld) [#/Vo l]Ordered By: Alexa Corona on 05-13-2024 Eosinophils (Bld) [#/Vol] Automated eosinophil count 0.0-0.45 [facility] Eosinophils/100 WBC Auto (Bl d)Ordered By: Alexa Corona on 05-13-2024 Eosinophils/100 WBC (Bld) Automated eosinophil % . [facility] Erythrocyte distribution wid th Auto (RBC) [Ratio]Ordered By: Alexa Corona on 05-13-2024 Erythrocyte distribution width (RBC) [Ratio] Erythrocyte distribution width [Ratio] by Automated count High 12.0-14.8 [facility] Glucose Glucometer (BldC) [M ass/Vol]Ordered By: Alexa Corona on 05-13-2024 Glucose [Mass/Vol] Capillary blood glucose measurement by glucometer (mass/volume) [facility] Comment on above: Random Glucose Refer ence Range is dependent on time and content of last meal. Glucose of more than 200 mg/dL in a nonstressed, ambulatory subject supports the diagnosis of Diabetes Mellitus. Glucose Poct Glucometerson 0 05-13-2024 Glucose [Mass/Vol] 379 mg/dL Normal The Counts Include [address] [facility] Comment on above: Result Comment: [place] Glucose Reference Range is dependent on time and content of last meal. Glucose of more than 200 mg/dL in a nonstressed, ambulatory subject supports the diagnosis of Diabetes Mellitus. PERFORMED BY: [facility] [address] [place] [address] PATHOLOGIST INTERACTIVE MEDIA MARKETING STRATEGIST OSCAR ESCOBAR M.D. Performed By: #### C UU #### [facility] [address] Glucose [Mass/volume] in Ser um or PlasmaOrdered By: Alexa Corona on 05-13-2024 Glucose [Mass/Vol] Glucose [Mass/volume] in Serum or Plasma High 70-100 [facility] Comment on above: ADA recommended refe rence rangeRandom Glucose Reference Range is dependent on time and content of last meal. Glucose of more than 200 mg/dL in a nonstressed, ambulatory subject supports the diagnosis of Diabetes Mellitus. Hematocrit Auto (Bld) [Volum e fraction]Ordered By: Alexa Corona on 05-13-2024 Hematocrit (Bld) [Volume fraction] Hematocrit [Volume Fraction] of Blood by Automated count Low 38.8-50.0 [facility] Hemoglobin [Mass/volume] in BloodOrdered By: Alexa Corona on 05-13-2024 Hemoglobin (Bld) [Mass/Vol] Hemoglobin [Mass/volume] in Blood Low 13.0-17.0 [facility] Leukocytes [#/volume] correc gabrielle for nucleated erythrocytes in Blood by Automated counOrdered By: Alexa Corona on 05-13-2024 WBC corrected for nucl RBC Auto (Bld) [#/Vol] Leukocytes [#/volume] corrected for nucleated erythrocytes in Blood by Automated coun 4.1-10.5 [facility] Lymphocytes Auto (Bld) [#/Vo l]Ordered By: Alexa Corona on 05-13-2024 Lymphocytes (Bld) [#/Vol] Lymphocytes [#/volume] in Blood by Automated count 1.00-4.8 [facility] Lymphocytes/100 WBC Auto (Bl d)Ordered By: Alexa Corona on 05-13-2024 Lymphocytes/100 WBC (Bld) Lymphocytes/100 leukocytes in Blood by Automated count . [facility] MCH Auto (RBC) [Entitic mass ]Ordered By: Alexa Corona on 05-13-2024 MCH (RBC) [Entitic mass] MCH [Entitic mass] by Automated count 27.5-35.2 [facility] MCHC Auto (RBC) [Mass/Vol]Or dered By: Alexa Corona on 05-13-2024 MCHC (RBC) [Mass/Vol] MCHC [Mass/volume] by Automated count 32.5-35.6 [facility] MCV Auto (RBC) [Entitic vol] Ordered By: Alexa Corona on 05-13-2024 MCV (RBC) [Entitic vol] MCV [Entitic volume] by Automated count 83.5-101 [facility] Monocytes Auto (Bld) [#/Vol] Ordered By: Alexa Corona on 05-13-2024 Monocytes (Bld) [#/Vol] Automated blood monocyte count 0.0-0.8 [facility] Monocytes/100 WBC Auto (Bld) Ordered By: Alexa Corona on 05-13-2024 Monocytes/100 WBC (Bld) Automated monocyte % . [facility] Neutrophils Auto (Bld) [#/Vo l]Ordered By: Alexa Corona on 05-13-2024 Neutrophils (Bld) [#/Vol] Neutrophils [#/volume] in Blood by Automated count 1.8-7.7 [facility] Neutrophils/100 WBC Auto (Bl d)Ordered By: Alexa Corona on 05-13-2024 Neutrophils/100 WBC (Bld) Automated neutrophil % . [facility] No Panel InformationOrdered By: Alexa Corona on 05-13-2024 Estimated GFR (CKD-EPI) 46.982 mL/Min [facility] Pharm[facility] Creatinine Clearance (Chem 41.63 [facility] Nucleated erythrocytes [Pres ence] in Blood by Automated countOrdered By: Alexa Corona on 05-13-2024 Nucleated RBC Auto Ql (Bld) Nucleated erythrocytes [Presence] in Blood by Automated count 0-0.5 [facility] Platelet mean volume Auto (B ld) [Entitic vol]Ordered By: Alexa Corona on 05-13-2024 Platelet mean volume (Bld) [Entitic vol] Platelet mean volume [Entitic volume] in Blood by Automated count 6.6-10.1 [facility] Platelets Auto (Bld) [#/Vol] Ordered By: Alexa Corona on 05-13-2024 Platelets (Bld) [#/Vol] Platelets [#/volume] in Blood by Automated count Low 150-450 [facility] Potassium [Moles/volume] in Serum or PlasmaOrdered By: Alexa Corona on 05-13-2024 Potassium [Moles/Vol] Potassium [Moles/volume] in Serum or Plasma 3.5-5.1 [facility] RBC Auto (Bld) [#/Vol]Ordere d By: Alexa Corona on 05-13-2024 RBC (Bld) [#/Vol] Erythrocytes [#/volume] in Blood by Automated count Low 3.90-5.60 [facility] Serum or plasma anion gap de terminationOrdered By: Alexa Corona on 05-13-2024 Anion gap [Moles/Vol] Serum or plasma anion gap determination 6.0-15.0 [facility] Sodium [Moles/volume] in Ser um or PlasmaOrdered By: Alexa Corona on 05-13-2024 Sodium [Moles/Vol] Sodium [Moles/volume] in Serum or Plasma 136-145 [facility] Urea nitrogen [Mass/volume] in Serum or PlasmaOrdered By: Alexa Corona on 05-13-2024 Urea nitrogen [Mass/Vol] Urea nitrogen [Mass/volume] in Serum or Plasma High 7-25 [facility] WBC Auto (Bld) [#/Vol]Ordere d By: Alexa Corona on 05-13-2024 WBC (Bld) [#/Vol] Leukocytes [#/volume] in Blood by Automated count 4.1-10.5 [facility] Basic Metabolic Panelon 04-23 Anion gap [Moles/Vol] 9.2 mmol/L Normal 6.0-15.0 The Counts Include [address] [facility] Comment on above: Performed By: #### B MP, CBC #### [facility] [address] Calcium [Mass/Vol] 8.6 mg/dL Normal 8.6-10.3 The Counts Include [address] [facility] Comment on above: Performed By: #### B MP, CBC #### [facility] [address] [place] [address] Chloride [Moles/Vol] 103 mmol/L Normal 98-107 The Counts Include [address] [facility] Comment on above: Performed By: #### B MP, CBC #### [address] CO2 [Moles/Vol] 34.1 mmol/L High 21.0-31.0 The Counts Include [address] [facility] Comment on above: Performed By: #### B MP, CBC #### [address] Creatinine [Mass/Vol] 1.85 mg/dL High 0.70-1.30 The Counts Include [address] [facility] Comment on above: Performed By: #### B MP, CBC #### [address] Creatinine Clr Calc Pharmacy 33.98 Normal The Counts Include [address] [facility] Comment on above: Result Comment: PERF ORMED BY: [place] [address] PATHOLOGIST INTERACTIVE MEDIA MARKETING STRATEGIST OSCAR ESCOBAR M.D. Performed By: #### B MP, CBC #### [address] Estimated GFR 36.821 mL/Min Normal The Counts Include [address] [facility] Comment on above: Performed By: #### B MP, CBC #### [address] Glucose [Mass/Vol] 48 mg/dL Off scale low 70-100 The Counts Include [address] [facility] Comment on above: Result Comment: Crit ical Result Called to and read back by: SAM TIPTON at: 05/12/2024 06:23:44 by: Random Glucose Reference Range is dependent on time and content of last meal. Glucose of more than 200 mg/dL in a nonstressed, ambulatory subject supports the diagnosis of Diabetes Mellitus. ADA recommended reference range Performed By: #### B MP, CBC #### [address] Potassium [Moles/Vol] 3.3 mmol/L Low 3.5-5.1 The Counts Include [address] [facility] Comment on above: Performed By: #### B MP, CBC #### [address] Sodium [Moles/Vol] 143 mmol/L Normal 136-145 The Counts Include [address] [facility] Comment on above: Performed By: #### B MP, CBC #### [address] Urea nitrogen [Mass/Vol] 75 mg/dL High 7-25 The Counts Include [address] [facility] Comment on above: Performed By: #### B MP, CBC #### [address] Complete Blood Count Auto Di ffon 05-12-2024 Basophils (Bld) [#/Vol] 0.0 10*3/uL Normal 0.0-0.2 The Counts Include [address] [facility] Comment on above: Result Comment: PERF ORMED BY: [place] [address] PATHOLOGIST INTERACTIVE MEDIA MARKETING STRATEGIST OSCAR ESCOBAR M.D. Performed By: #### B MP, CBC #### [address] Basophils/100 WBC (Bld) 0.6 % Normal . The Counts Include [address] [facility] Comment on above: Performed By: #### B MP, CBC #### [address] Eosinophils (Bld) [#/Vol] 0.3 10*3/uL Normal 0.0-0.45 The Counts Include [address] [facility] Comment on above: Performed By: #### B MP, CBC #### [address] Eosinophils/100 WBC (Bld) 4.5 % Normal . The Counts Include [address] [facility] Comment on above: Performed By: #### B MP, CBC #### [address] Erythrocyte distribution width (RBC) [Ratio] 16.7 % High 12.0-14.8 The Counts Include [address] [facility] Comment on above: Performed By: #### B MP, CBC #### [address] [place] [address] [place] Hematocrit (Bld) [Volume fraction] 26.9 % Low 38.8-50.0 The Counts Include [address] [facility] Comment on above: Performed By: #### B MP, CBC #### [address] Hemoglobin (Bld) [Mass/Vol] 9.1 g/dL Low 13.0-17.0 The Counts Include [address] [facility] Comment on above: Performed By: #### B MP, CBC #### [address] Lymphocytes (Bld) [#/Vol] 1.0 10*3/uL Normal 1.00-4.8 The Counts Include [address] [facility] Comment on above: Performed By: #### B MP, CBC #### [address] Lymphocytes/100 WBC (Bld) 16.4 % Normal . The Counts Include [address] [facility] Comment on above: Performed By: #### B MP, CBC #### [address] [address] MCH (RBC) [Entitic mass] 31.8 pg Normal 27.5-35.2 The Counts Include [facility] Comment on above: Performed By: #### B MP, CBC #### [address] MCV (RBC) [Entitic vol] 93.9 fL Normal 83.5-101 The Counts Include [facility] Comment on above: Performed By: #### B MP, CBC #### [address] Mean Corpuscular HGB Conc 33.8 g/dL Normal 32.5-35.6 The Counts Include [facility] Comment on above: Performed By: #### B MP, CBC #### [address] Monocytes (Bld) [#/Vol] 0.4 10*3/uL Normal 0.0-0.8 The Counts Include [facility] Comment on above: Performed By: #### B MP, CBC #### [place] [address] Monocytes/100 WBC (Bld) 6.8 % Normal . The Counts Include [facility] Comment on above: Performed By: #### B MP, CBC #### [address] Neutrophils (Bld) [#/Vol] 4.3 10*3/uL Normal 1.8-7.7 The Counts Include [facility] Comment on above: Performed By: #### B MP, CBC #### [address] Neutrophils/100 WBC (Bld) 71.7 % Normal . The Counts Include [facility] Comment on above: Performed By: #### B MP, CBC #### [address] NRBC% 0.1 /100{WBC} Normal 0-0.5 The Counts Include [facility] Comment on above: Performed By: #### B MP, CBC #### [address] Platelet mean volume (Bld) [Entitic vol] 6.8 fL Normal 6.6-10.1 The Counts Include [facility] Comment on above: Performed By: #### B MP, CBC #### [address] Platelets (Bld) [#/Vol] 115 10*3/uL Low 150-450 The Counts Include [facility] Comment on above: Performed By: #### B MP, CBC #### [address] RBC (Bld) [#/Vol] 2.87 10*6/uL Low 3.90-5.60 The Counts Include [facility] Comment on above: Performed By: #### B MP, CBC #### [address] WBC (Bld) [#/Vol] 6.1 10*3/uL Normal 4.1-10.5 The Counts Include [facility] Comment on above: Performed By: #### B MP, CBC #### [address] Glucose Poct Glucometerson 0 05-12-2024 Glucose [Mass/Vol] 383 mg/dL Normal The Counts Include [facility] Comment on above: Result Comment: [place] om Glucose Reference Range is dependent on time and content of last meal. Glucose of more than 200 mg/dL in a nonstressed, ambulatory subject supports the diagnosis of Diabetes Mellitus. PERFORMED BY: [address] [place] [address] PATHOLOGIST INTERACTIVE MEDIA MARKETING STRATEGIST OSCAR ESCOBAR M.D. Performed By: #### B MP, CBC #### [facility] [address] [place] [address] [place] Glucose [Mass/Vol] 287 mg/dL Normal The Counts Include [facility] Comment on above: Result Comment: [place] om Glucose Reference Range is dependent on time and content of last meal. Glucose of more than 200 mg/dL in a nonstressed, ambulatory subject supports the diagnosis of Diabetes Mellitus. PERFORMED BY: [address] [place] [address] PATHOLOGIST INTERACTIVE MEDIA MARKETING STRATEGIST OSCAR ESCOBAR M.D. Performed By: #### B MP, CBC #### [address] Glucose [Mass/Vol] 214 mg/dL Normal The Counts Include [facility] Comment on above: Result Comment: [place] om Glucose Reference Range is dependent on time and content of last meal. Glucose of more than 200 mg/dL in a nonstressed, ambulatory subject supports the diagnosis of Diabetes Mellitus. PERFORMED BY: [address] [place] [address] PATHOLOGIST INTERACTIVE MEDIA MARKETING STRATEGIST OSCAR ESCOBAR M.D. Performed By: #### B MP, CBC #### [facility] [address] [place] [address] [place] Glucose [Mass/Vol] 91 mg/dL Normal The Counts Include [facility] Comment on above: Result Comment: [place] om Glucose Reference Range is dependent on time and content of last meal. Glucose of more than 200 mg/dL in a nonstressed, ambulatory subject supports the diagnosis of Diabetes Mellitus. PERFORMED BY: [place] [id number] PATHOLOGIST INTERACTIVE MEDIA MARKETING STRATEGIST OSCAR ESCOBAR M.D. Performed By: #### B MP, CBC #### [address] Glucose [Mass/Vol] 63 mg/dL Normal The Counts Include [facility] Comment on above: Result Comment: [place] om Glucose Reference Range is dependent on time and content of last meal. Glucose of more than 200 mg/dL in a nonstressed, ambulatory subject supports the diagnosis of Diabetes Mellitus. PERFORMED BY: [place] [address] PATHOLOGIST INTERACTIVE MEDIA MARKETING STRATEGIST OSCAR ESCOBAR M.D. Performed By: #### B SARA, CBC #### [address] Commemt1 Glu2: Cleaned Meter Normal The Counts Include [facility] Comment on above: Result Comment: PERF ORMED BY: [place] [address] PATHOLOGIST INTERACTIVE MEDIA MARKETING STRATEGIST OSCAR ESCOBAR M.D. Performed By: #### B SARA, CBC #### [address] Glucose [Mass/Vol] 93 mg/dL Normal The Counts Include [facility] Comment on above: Result Comment: [place] Glucose Reference Range is dependent on time and content of last meal. Glucose of more than 200 mg/dL in a nonstressed, ambulatory subject supports the diagnosis of Diabetes Mellitus. Performed By: #### B MP, CBC #### [address] No Panel InformationOrdered By: Alexa Corona on 05-12-2024 Bedside Glucose Comment Glu2: cleaned meter [facility] X-ray reportOrdered By: Simone Chakraborty on 05-12-2024 Study report [facility] Main [place] [address] [place] [address] XRay Report Signed Patient: Leighton Arciniega MR#: [id number] : 1945 Acct:[id number] Age/Sex: 78 / M ADM Date: 5 Loc: Room: [address] [place] [address] Type: ADM IN Attending Dr: Alexa Corona [...] Benton Chakraborty M.D.05/12/2024 9:06 AM Dictation Location: [place] [address] Transcribed By: [facility] 05/12/24905 Dictated By: Benton Chakraborty DO 05/12/24903 Signed By: 05/12/24 09 [facility] XR chest 1V portableon 05-12 XR chest 1V portable [facility] [place] [address] XRay Report Signed Patient: Leighton Arciniega MR#: [id number] : 1945 Acct:[id number] Age/Sex: 78 / M ADM Date: 05/09/24 Loc: Room: [address] [place] [address] Type: ADM IN Attending Dr: Alexa Corona [...] Benton Chakraborty M.D.05/12/2024 9:06 AM Dictation Location: [facility]--16 Transcribed By: [facility] 05/12/24905 Dictated By: Benton Chakraborty DO 05/12/24903 Signed By: 05/12/24905 Normal The Counts Include [facility] Basic Metabolic Panelon 04-23 Anion gap [Moles/Vol] 11.5 mmol/L Normal 6.0-15.0 Th e Counts Include [facility] Comment on above: Performed By: #### B MP, CBC #### [address] Calcium [Mass/Vol] 9.2 mg/dL Normal 8.6-10.3 The Counts Include [facility] Comment on above: Performed By: #### B MP, CBC #### [address] Chloride [Moles/Vol] 101 mmol/L Normal 98-107 The Counts Include [facility] Comment on above: Performed By: #### B MP, CBC #### [address] CO2 [Moles/Vol] 32.9 mmol/L High 21.0-31.0 The Counts Include [facility] Comment on above: Performed By: #### B MP, CBC #### [place] [address] [place] Creatinine [Mass/Vol] 2.31 mg/dL High 0.70-1.30 The Counts Include [facility] Comment on above: Performed By: #### B MP, CBC #### [place] [address] [place] Creatinine Clr Calc Pharmacy 29.40 Normal The Counts Include [facility] Comment on above: Result Comment: PERF ORMED BY: [place] [address] PATHOLOGIST INTERACTIVE MEDIA MARKETING STRATEGIST OSCAR ESCOBAR M.D. Performed By: #### B MP, CBC #### [address] Estimated GFR 28.208 mL/Min Normal The Counts Include [facility] Comment on above: Performed By: #### B MP, CBC #### [address] Glucose [Mass/Vol] 57 mg/dL Low 70-100 The Counts Include [facility] Comment on above: Result Comment: [facility] Glucose Reference Range is dependent on time and content of last meal. Glucose of more than 200 mg/dL in a nonstressed, ambulatory subject supports the diagnosis of Diabetes Mellitus. ADA recommended reference range Performed By: #### B MP, CBC #### [address] Potassium [Moles/Vol] 3.4 mmol/L Low 3.5-5.1 The Counts Include [facility] Comment on above: Performed By: #### B MP, CBC #### [address] Sodium [Moles/Vol] 142 mmol/L Significant change down 136-145 The Counts Include [facility] Comment on above: Performed By: #### B MP, CBC #### [address] Urea nitrogen [Mass/Vol] 87 mg/dL High 7-25 The Counts Include [facility] Comment on above: Performed By: #### B MP, CBC #### [address] Complete Blood Count Auto Di ffon 05-11-2024 Basophils (Bld) [#/Vol] 0.0 10*3/uL Normal 0.0-0.2 The Counts Include [facility] Comment on above: Result Comment: PERF ORMED BY: [place] [address] PATHOLOGIST INTERACTIVE MEDIA MARKETING STRATEGIST OSCAR ESCOBAR M.D. Performed By: #### B MP, CBC #### [address] [address] [place] Basophils/100 WBC (Bld) 0.1 % Normal . The Counts Include [facility] Comment on above: Performed By: #### B MP, CBC #### [address] Eosinophils (Bld) [#/Vol] 0.2 10*3/uL Normal 0.0-0.45 The Counts Include [facility] Comment on above: Performed By: #### B MP, CBC #### [address] Eosinophils/100 WBC (Bld) 3.3 % Normal . The Counts Include [facility] Comment on above: Performed By: #### B MP, CBC #### [address] Erythrocyte distribution width (RBC) [Ratio] 16.7 % High 12.0-14.8 The Counts Include [facility] Comment on above: Performed By: #### B MP, CBC #### [address] Hematocrit (Bld) [Volume fraction] 29.6 % Low 38.8-50.0 The Counts Include [facility] Comment on above: Performed By: #### B MP, CBC #### [address] Hemoglobin (Bld) [Mass/Vol] 10.1 g/dL Low 13.0-17.0 The Counts Include [facility] Comment on above: Performed By: #### B MP, CBC #### [address] Lymphocytes (Bld) [#/Vol] 0.8 10*3/uL Low 1.00-4.8 The Counts Include [facility] Comment on above: Performed By: #### B MP, CBC #### [address] Lymphocytes/100 WBC (Bld) 11.7 % Normal . The Counts Include [facility] Comment on above: Performed By: #### B MP, CBC #### [address] MCH (RBC) [Entitic mass] 32.2 pg Normal 27.5-35.2 The Counts Include [facility] Comment on above: Performed By: #### B MP, CBC #### [address] MCV (RBC) [Entitic vol] 94.5 fL Normal 83.5-101 The Counts Include [facility] Comment on above: Performed By: #### B MP, CBC #### [address] Mean Corpuscular HGB Conc 34.1 g/dL Normal 32.5-35.6 The Counts Include [facility] Comment on above: Performed By: #### B MP, CBC #### [address] Monocytes (Bld) [#/Vol] 0.5 10*3/uL Normal 0.0-0.8 The Counts Include [facility] Comment on above: Performed By: #### B MP, CBC #### [address] Monocytes/100 WBC (Bld) 6.8 % Normal . The Counts Include [facility] Comment on above: Performed By: #### B MP, CBC #### [address] Neutrophils (Bld) [#/Vol] 5.2 10*3/uL Normal 1.8-7.7 The Counts Include [facility] Comment on above: Performed By: #### B MP, CBC #### [address] Neutrophils/100 WBC (Bld) 78.1 % Normal . The Counts Include [facility] Comment on above: Performed By: #### B MP, CBC #### [address] NRBC% 0.1 /100{WBC} Normal 0-0.5 The Counts Include [facility] Comment on above: Performed By: #### B MP, CBC #### [address] Platelet mean volume (Bld) [Entitic vol] 6.5 fL Low 6.6-10.1 The Counts Include [facility] Comment on above: Performed By: #### B MP, CBC #### [facility] [address] Platelets (Bld) [#/Vol] 129 10*3/uL Low 150-450 The Counts Include [facility] Comment on above: Performed By: #### B MP, CBC #### [address] RBC (Bld) [#/Vol] 3.13 10*6/uL Low 3.90-5.60 The Counts Include [facility] Comment on above: Performed By: #### B MP, CBC #### [facility] [address] WBC (Bld) [#/Vol] 6.6 10*3/uL Normal 4.1-10.5 The Counts Include [facility] Comment on above: Performed By: #### B MP, CBC #### [address] ECH echo transthoracicon ECH echo transthoracic [facility] Main [place] [address] [place] [address] Echocardiogram Signed Patient: Leighton Arciniega MR#: [id number] : 1945 Acct:[id number] Age/Sex: 78 / M ADM Date: 05/09/24 Loc: Room: [address] [place] [address] Type: ADM IN Attending Dr: Alexa Corona [...] CHF, 2024 EF was 50%, 2024 EF hij96-97% (both echos done at [place]), HTN, DM, DVT, SSS, Pacemaker, A-Fib., CKD, COPD, VIRGILIO, [place] Interpretation Summary Ejection Fraction = 20-25%. The [...] Performed (more content not included)... Normal The [facility] Include [facility] Glucose Poct Glucometerson 0 05-11-2024 Commemt1 Glu2: Cleaned Meter Normal The Counts Include [facility] Comment on above: Result Comment: PERF ORMED BY: [facility] [address] [place] [address] PATHOLOGIST INTERACTIVE MEDIA MARKETING STRATEGIST OSCAR ESCOBAR M.D. Performed By: #### G LULS #### Point of Care testing , Glucose [Mass/Vol] 218 mg/dL Normal The Counts Include [facility] Comment on above: Result Comment: [place] Glucose Reference Range is dependent on time and content of last meal. Glucose of more than 200 mg/dL in a nonstressed, ambulatory subject supports the diagnosis of Diabetes Mellitus. Performed By: #### G LULS #### Point of Care testing , Glucose [Mass/Vol] 187 mg/dL Normal The Counts Include [facility] Comment on above: Result Comment: [place] [facility] Glucose Reference Range is dependent on time and content of last meal. Glucose of more than 200 mg/dL in a nonstressed, ambulatory subject supports the diagnosis of Diabetes Mellitus. PERFORMED BY: [place] [address] PATHOLOGIST INTERACTIVE MEDIA MARKETING STRATEGIST OSCAR ESCOBAR M.D. Performed By: #### B MP, CBC #### [address] Glucose [Mass/Vol] 333 mg/dL Normal The Counts Include [facility] Comment on above: Result Comment: [place] [facility] Glucose Reference Range is dependent on time and content of last meal. Glucose of more than 200 mg/dL in a nonstressed, ambulatory subject supports the diagnosis of Diabetes Mellitus. PERFORMED BY: [place] [address] PATHOLOGIST INTERACTIVE MEDIA MARKETING STRATEGIST OSCAR ESCOBAR M.D. Performed By: #### B MP, CBC #### [place] [address] [place] Commemt1 Glu2: Cleaned Meter Normal The Counts Include [facility] Comment on above: Result Comment: PERF ORMED BY: [place] [address] PATHOLOGIST INTERACTIVE MEDIA MARKETING STRATEGIST OSCAR ESCOBAR M.D. Performed By: #### B MP, CBC #### [place] [address] [place] Glucose [Mass/Vol] 168 mg/dL Normal The Counts Include [facility] Comment on above: Result Comment: [place] [facility] Glucose Reference Range is dependent on time and content of last meal. Glucose of more than 200 mg/dL in a nonstressed, ambulatory subject supports the diagnosis of Diabetes Mellitus. Performed By: #### B MP, CBC #### [place] [address] [place] Glucose [Mass/Vol] 69 mg/dL Normal The Counts Include [facility] Comment on above: Result Comment: [place] [facility] Glucose Reference Range is dependent on time and content of last meal. Glucose of more than 200 mg/dL in a nonstressed, ambulatory subject supports the diagnosis of Diabetes Mellitus. PERFORMED BY: [place] [address] PATHOLOGIST INTERACTIVE MEDIA MARKETING STRATEGIST OSCAR ESCOBAR M.D. Performed By: #### B MP, CBC #### [address] Commemt1 Glu2: Cleaned Meter Normal The Counts Include [facility] Comment on above: Result Comment: PERF ORMED BY: [place] [address] PATHOLOGIST INTERACTIVE MEDIA MARKETING STRATEGIST OSCAR ESCOBAR M.D. Performed By: #### B MP, CBC #### [address] Glucose [Mass/Vol] 80 mg/dL Normal The Counts Include [facility] Comment on above: Result Comment: [facility] Glucose Reference Range is dependent on time and content of last meal. Glucose of more than 200 mg/dL in a nonstressed, ambulatory subject supports the diagnosis of Diabetes Mellitus. Performed By: #### B MP, CBC #### [address] Basic Metabolic Panelon 04-22 Anion gap [Moles/Vol] 12.6 mmol/L Normal 6.0-15.0 Th e Counts Include [facility] Comment on above: Performed By: #### B MP, LIPID, CBC #### [place] [address] [place] Calcium [Mass/Vol] 8.9 mg/dL Normal 8.6-10.3 The Counts Include [facility] Comment on above: Performed By: #### B MP, LIPID, CBC #### [place] [address] [place] Chloride [Moles/Vol] 101 mmol/L Normal 98-107 The Counts Include [facility] Comment on above: Performed By: #### B MP, LIPID, CBC #### [place] [address] [place] CO2 [Moles/Vol] 26.6 mmol/L Normal 21.0-31.0 The Counts Include [facility] Comment on above: Performed By: #### B MP, LIPID, CBC #### [address] Creatinine [Mass/Vol] 2.26 mg/dL High 0.70-1.30 The Counts Include [facility] Comment on above: Performed By: #### B MP, LIPID, CBC #### [place] [address] [place] Creatinine Clr Calc Pharmacy 31.85 Normal The Counts Include [facility] Comment on above: Performed By: #### B MP, LIPID, CBC #### [address] Estimated GFR 28.958 mL/Min Normal The Counts Include [facility] Comment on above: Performed By: #### B MP, LIPID, CBC #### [address] Glucose [Mass/Vol] 131 mg/dL High 70-100 The Counts Include [facility] Comment on above: Result Comment: [place] Glucose Reference Range is dependent on time and content of last meal. Glucose of more than 200 mg/dL in a nonstressed, ambulatory subject supports the diagnosis of Diabetes Mellitus. ADA recommended reference range Performed By: #### B MP, LIPID, CBC #### [address] Potassium [Moles/Vol] 4.2 mmol/L Normal 3.5-5.1 The Counts Include [facility] Comment on above: Performed By: #### B MP, LIPID, CBC #### [place] [address] [place] Sodium [Moles/Vol] 136 mmol/L Normal 136-145 The Counts Include [facility] Comment on above: Performed By: #### B MP, LIPID, CBC #### [address] Urea nitrogen [Mass/Vol] 85 mg/dL High 7-25 The Counts Include [facility] Comment on above: Performed By: #### B MP, LIPID, CBC #### [place] [address] [place] Cholesterol [Mass/volume] in Serum or PlasmaOrdered By: Alexa Corona on 05-10-2024 Cholesterol [Mass/Vol] Cholesterol [Mass/volume] in Serum or Plasma Low 140-200 [facility] Comment on above: Chol less than 200 m g/dl low riskChol 201-239 mg/dl borderline riskChol 240 mg/dl and greater high risk Cholesterol in HDL [Mass/vol ume] in Serum or PlasmaOrdered By: Alexa Corona on 05-10-2024 Cholesterol in HDL [Mass/Vol] Serum or plasma high density lipoprotein (HDL) cholesterol measurement [facility] Comment on above: HDL CHOL ATP-III CLA SSIFICATION Cardiovascular RiskHDL > or equal to 60 mg/dL LOWHDL < 40 mg/dL HIGH Cholesterol in LDL Calc [Mas s/Vol]Ordered By: Alexa Corona on 05-10-2024 Cholesterol in LDL [Mass/Vol] Cholesterol in LDL [Mass/volume] in Serum or Plasma by calculation 0-100 [facility] Comment on above: LDL ATP III CLASSIFI CATIONLDL less than 100 mg/dL OptimalLDL 100-129 mg/dL Near or above optimalLDL 130-159 mg/dL Borderline highLDL 160-189 mg/dL HighLDL greater than 189 mg/dL Very high Cholesterol in VLDL Calc [Ma ss/Vol]Ordered By: Alexa Corona on 05-10-2024 Cholesterol in VLDL [Mass/Vol] Cholesterol in VLDL [Mass/volume] in Serum or Plasma by calculation [facility] Clostridioides difficile tox in B tcdB gene [Presence] in Stool by TORI with probe deteOrdered By: Alexa Corona on 05-10-2024 C. difficile toxin B tcdB gene TORI+probe Ql (Stl) Clostridioides difficile toxin B tcdB gene [Presence] in Stool by TORI with probe dete Negative [facility] Comment on above: Testing performed by RT-PCR Clostridium Difficileon 04-22 Clostridium Difficile Negative Normal Negative The Counts Include [facility] Comment on above: Order Comment: > or = to 3 loose/watery stools in the last 24 HRS? Y Is patient on promotility agents or tube feeding? N Result Comment: Test ing performed by RT-PCR PERFORMED BY: [place] [address] PATHOLOGIST INTERACTIVE MEDIA MARKETING STRATEGIST OSCAR ESCOBAR M.D. Performed By: #### C UU #### [address] Complete Blood Count Auto Di ffon 05-10-2024 Basophils (Bld) [#/Vol] 0.1 10*3/uL Normal 0.0-0.2 The Counts Include [facility] Comment on above: Result Comment: PERF ORMED BY: [place] [address] PATHOLOGIST INTERACTIVE MEDIA MARKETING STRATEGIST OSCAR ESCOBAR M.D. Performed By: #### B MP, LIPID, CBC #### [address] Basophils/100 WBC (Bld) 0.7 % Normal . The Counts Include [facility] Comment on above: Performed By: #### B MP, LIPID, CBC #### [address] Eosinophils (Bld) [#/Vol] 0.0 10*3/uL Normal 0.0-0.45 The Counts Include [facility] Comment on above: Performed By: #### B MP, LIPID, CBC #### [address] Eosinophils/100 WBC (Bld) 0.5 % Normal . The Counts Include [facility] Comment on above: Performed By: #### B MP, LIPID, CBC #### [address] Erythrocyte distribution width (RBC) [Ratio] 16.3 % High 12.0-14.8 The Counts Include [facility] Comment on above: Performed By: #### B MP, LIPID, CBC #### [address] Hematocrit (Bld) [Volume fraction] 27.5 % Low 38.8-50.0 The Counts Include [facility] Comment on above: Performed By: #### B MP, LIPID, CBC #### [address] Hemoglobin (Bld) [Mass/Vol] 9.4 g/dL Low 13.0-17.0 The Counts Include [facility] Comment on above: Performed By: #### B MP, LIPID, CBC #### [address] Lymphocytes (Bld) [#/Vol] 0.6 10*3/uL Low 1.00-4.8 The Counts Include [facility] Comment on above: Performed By: #### B MP, LIPID, CBC #### [address] Lymphocytes/100 WBC (Bld) 6.2 % Normal . The Counts Include [facility] Comment on above: Performed By: #### B MP, LIPID, CBC #### [address] MCH (RBC) [Entitic mass] 32.5 pg Normal 27.5-35.2 The Counts Include [facility] Comment on above: Performed By: #### B MP, LIPID, CBC #### [address] MCV (RBC) [Entitic vol] 94.9 fL Normal 83.5-101 The Counts Include [facility] Comment on above: Performed By: #### B MP, LIPID, CBC #### [address] Mean Corpuscular HGB Conc 34.2 g/dL Normal 32.5-35.6 The Counts Include [facility] Comment on above: Performed By: #### B MP, LIPID, CBC #### [address] Monocytes (Bld) [#/Vol] 0.3 10*3/uL Normal 0.0-0.8 The Counts Include [facility] Comment on above: Performed By: #### B MP, LIPID, CBC #### [address] Monocytes/100 WBC (Bld) 3.3 % Normal . The Counts Include [facility] Comment on above: Performed By: #### B MP, LIPID, CBC #### [place] [address] [place] Neutrophils (Bld) [#/Vol] 8.5 10*3/uL High 1.8-7.7 The Counts Include [facility] Comment on above: Performed By: #### B MP, LIPID, CBC #### [address] Neutrophils/100 WBC (Bld) 89.3 % Normal . The Counts Include [facility] Comment on above: Performed By: #### B MP, LIPID, CBC #### [address] NRBC% 0.0 /100{WBC} Normal 0-0.5 The Counts Include [facility] Comment on above: Performed By: #### B MP, LIPID, CBC #### [address] Platelet mean volume (Bld) [Entitic vol] 6.8 fL Normal 6.6-10.1 The Counts Include [facility] Comment on above: Performed By: #### B MP, LIPID, CBC #### [place] [address] [place] Platelets (Bld) [#/Vol] 124 10*3/uL Low 150-450 The Counts Include [facility] Comment on above: Performed By: #### B MP, LIPID, CBC #### [address] RBC (Bld) [#/Vol] 2.90 10*6/uL Low 3.90-5.60 The Counts Include [facility] Comment on above: Performed By: #### B MP, LIPID, CBC #### [place] [address] [place] WBC (Bld) [#/Vol] 9.5 10*3/uL Normal 4.1-10.5 The Counts Include [facility] Comment on above: Performed By: #### B MP, LIPID, CBC #### [address] ECG 12 lead ECGon 05-10-2024 ECG 12 lead ECG [facility] Main [facility] [address] [place] [address] Electrocardiograph Report Signed Patient: Leighton Arciniega MR#: [id number] : 1945 Acct:[id number] Age/Sex: 78 / M ADM Date: 05/09/24 Loc: Room: [address] [place] [address] Type: ADM IN Attending Dr: Alexa Corona [...] ms Ventricular-paced rhythm Confirmed by John Nettles ([id number]) on 05/10/2024 3:54:15 PM Referred By: Electronically Signed By: John Nettles Transcribed By: MUS Signed By John Nettles MD 05/10/24 1554 Normal The Counts Include [facility] Glucose Poct Glucometerson 0 05-10-2024 Glucose [Mass/Vol] 150 mg/dL Normal The Counts Include [facility] Comment on above: Result Comment: [facility] Glucose Reference Range is dependent on time and content of last meal. Glucose of more than 200 mg/dL in a nonstressed, ambulatory subject supports the diagnosis of Diabetes Mellitus. PERFORMED BY: [address] [address] PATHOLOGIST INTERACTIVE MEDIA MARKETING STRATEGIST OSCAR ESCOBAR M.D. Performed By: #### G LULS #### Point of Care testing , Glucose [Mass/Vol] 106 mg/dL Normal The Counts Include [facility] Comment on above: Result Comment: [facility] Glucose Reference Range is dependent on time and content of last meal. Glucose of more than 200 mg/dL in a nonstressed, ambulatory subject supports the diagnosis of Diabetes Mellitus. PERFORMED BY: [address] [address] PATHOLOGIST INTERACTIVE MEDIA MARKETING STRATEGIST OSCAR ESCOBAR M.D. Performed By: #### C UU #### [address] Glucose [Mass/Vol] 187 mg/dL Normal The Counts Include [facility] Comment on above: Result Comment: [facility] Glucose Reference Range is dependent on time and content of last meal. Glucose of more than 200 mg/dL in a nonstressed, ambulatory subject supports the diagnosis of Diabetes Mellitus. PERFORMED BY: [place] [address] PATHOLOGIST INTERACTIVE MEDIA MARKETING STRATEGIST OSCAR ESCOBAR M.D. Performed By: #### B MP, CBC #### [address] Glucose [Mass/Vol] 153 mg/dL Normal The Counts Include [facility] Comment on above: Result Comment: [facility] Glucose Reference Range is dependent on time and content of last meal. Glucose of more than 200 mg/dL in a nonstressed, ambulatory subject supports the diagnosis of Diabetes Mellitus. PERFORMED BY: [place] [address] PATHOLOGIST INTERACTIVE MEDIA MARKETING STRATEGIST OSCAR ESCOBAR M.D. Performed By: #### B MP, CBC #### [address] Lipid Panelon 05-10-2024 Cholesterol [Mass/Vol] 139 mg/dL Low 140-200 [facility] Comment on above: Result Comment: Chol less than 200 mg/dl low risk Chol 201-239 mg/dl borderline risk Chol 240 mg/dl and greater high risk Performed By: #### B MP, LIPID, CBC #### [address] Cholesterol in HDL [Mass/Vol] 65 mg/dL Normal 23-92 The Counts Include [facility] Comment on above: Result Comment: HDL CHOL ATP-III CLASSIFICATION Cardiovascular Risk HDL > or equal to 60 mg/dL LOW HDL < 40 mg/dL HIGH Performed By: #### B MP, LIPID, CBC #### [address] Cholesterol.total/Chol esterol in HDL [Mass ratio] 2.1 {ratio} Normal <5.0 The Counts Include [facility] Comment on above: Result Comment: PERF ORMED BY: [place] [address] PATHOLOGIST INTERACTIVE MEDIA MARKETING STRATEGIST OSCAR ESCOBAR M.D. Performed By: #### B MP, LIPID, CBC #### [address] LDL Cholesterol,Calculated 63 mg/dL Normal 0-100 The Counts Include [facility] Comment on above: Result Comment: LDL ATP III CLASSIFICATION LDL less than 100 mg/dL Optimal LDL 100-129 mg/dL Near or above optimal LDL 130-159 mg/dL Borderline high LDL 160-189 mg/dL High LDL greater than 189 mg/dL Very high Performed By: #### B MP, LIPID, CBC #### [address] Triglyceride w/Reflex 57 mg/dL Normal 0-149 The Counts Include [facility] Comment on above: Result Comment: TRIG ATP III CLASSIFICATION TRIG less than 150 mg/dL Normal TRIG 150-199 mg/dL Borderline high TRIG 200-500 mg/dL High TRIG greater than 500 mg/dL Very high Standard traceable to the Center for Disease Conrtrol and Prevention (CDC) test method. Performed By: #### B MP, LIPID, CBC #### [address] VLDL CHOLESTEROL 11 mg/dL Normal The Counts Include [facility] Comment on above: Performed By: #### B MP, LIPID, CBC #### [address] Serum or plasma total choles terol/high density lipoprotein (HDL) cholesterol mass ratOrdered By: Alexa Corona on 05-10-2024 Cholesterol.total/Chol esterol in HDL [Mass ratio] Serum or plasma total cholesterol/high density lipoprotein (HDL) cholesterol mass rat <5.0 [facility] Triglyceride [Mass/volume] i n Serum or PlasmaOrdered By: Alexa Corona on 05-10-2024 Triglyceride [Mass/Vol] Triglyceride [Mass/volume] in Serum or Plasma 0-149 [facility] Comment on above: TRIG ATP III CLASSIF ICATIONTRIG less than 150 mg/dL NormalTRIG 150-199 mg/dL Borderline highTRIG 200-500 mg/dL High TRIG greater than 500 mg/dL Very highStandard traceable to the Center for Disease Conrtrol and Prevention (CDC) test method. Troponin I High Sensitivityo n 05-10-2024 Troponin I High Sensitivity 47 High 0-20 The Counts Include [facility] Comment on above: Result Comment: The Troponin units of report have been changed to meet the Chest Pain Accreditation requirement, element EC5.M1l2. Troponin units are changed from pg/ml to ng/L. Also, the decimal is removed and results are in whole numbers. PERFORMED BY: [place] [address] PATHOLOGIST INTERACTIVE MEDIA MARKETING STRATEGIST OSCAR ESCOBAR M.D. Performed By: #### B SARA, CBC #### [facility] [address] [place] [address] Troponin I High Sensitivity 46 High 0-20 The Counts Include [facility] Comment on above: Result Comment: The Troponin units of report have been changed to meet the Chest Pain Accreditation requirement, element EC5.M1l2. Troponin units are changed from pg/ml to ng/L. Also, the decimal is removed and results are in whole numbers. PERFORMED BY: [place] [phone] PATHOLOGIST INTERACTIVE MEDIA MARKETING STRATEGIST OSCAR ESCOBAR M.D. Performed By: #### B SARA, CBC #### [address] Troponin I.cardiac [Mass/vol ume] in Serum or Plasma by Detection limit <= 0.01 ng/Ordered By: Alexa Corona on 05-10-2024 Troponin I.cardiac DL <= 0.01 ng/mL [Mass/Vol] Troponin I.cardiac [Mass/volume] in Serum or Plasma by Detection limit <= 0.01 ng/ High 0-20 [facility] Comment on above: The Troponin units o f report have been changed to meet the Chest Pain Accreditation requirement, element EC5.M1l2. Troponin units are changed from pg/ml to ng/L. Also, the decimal is removed and results are in whole numbers. B-Type Natriuretic Peptideon 05-09-2024 Natriuretic peptide B (Bld) [Mass/Vol] 1940.0 pg/mL High 5-100 The Counts Include [facility] Comment on above: Order Comment: Comme nt add Result Comment: PERF ORMED BY: [place] [address] PATHOLOGIST INTERACTIVE MEDIA MARKETING STRATEGIST OSCAR ESCOBAR M.D. Performed By: #### B MP, CBC #### [address] ECG 12 lead ECGon 05-09-2024 ECG 12 lead ECG [facility] Main [facility] [address] [place] [address] Electrocardiograph Report Signed Patient: Leighton Arciniega MR#: [id number] : 1945 Acct:[id number] Age/Sex: 78 / M ADM Date: 05/09/24 Loc: Room: [address] [place] [address] Type: ADM IN Attending Dr: Alexa Corona [...] ms Ventricular-paced rhythm Confirmed by John Nettles ([id number]) on 05/10/2024 3:51:11 PM Referred By: Electronically Signed By: John Nettles Transcribed By: MUS Signed By John Nettles MD 05/10/24 1551 Normal The Counts Include [facility] Glucose Poct Glucometerson 0 05-09-2024 Glucose [Mass/Vol] 108 mg/dL Normal The Counts Include [facility] Comment on above: Result Comment: [facility] Glucose Reference Range is dependent on time and content of last meal. Glucose of more than 200 mg/dL in a nonstressed, ambulatory subject supports the diagnosis of Diabetes Mellitus. PERFORMED BY: [place] [address] PATHOLOGIST INTERACTIVE MEDIA MARKETING STRATEGIST OSCAR ESCOBAR M.D. Performed By: #### G LULS #### Point of Care testing , Magnesiumon 05-09-2024 Magnesium [Mass/Vol] 2.1 mg/dL Normal 1.9-2.7 The Counts Include [address] [facility] Comment on above: Order Comment: Comme nt add Result Comment: PERF ORMED BY: [place] [address] PATHOLOGIST INTERACTIVE MEDIA MARKETING STRATEGIST OSCAR ESCOBAR M.D. Performed By: #### C UU #### [address] Magnesium [Mass/volume] in S chelo or PlasmaOrdered By: Alexa Corona on 05-09-2024 Magnesium [Mass/Vol] Magnesium [Mass/volume] in Serum or Plasma 1.9-2.7 [facility] Natriuretic peptide B [Mass/ Vol]Ordered By: Alexa Corona on 05-09-2024 Natriuretic peptide B (Bld) [Mass/Vol] BNP ser/plas High 5-100 [facility] Troponin I High Sensitivityo n 05-09-2024 Troponin I High Sensitivity 42 High 0-20 The Counts Include [facility] Comment on above: Result Comment: The Troponin units of report have been changed to meet the Chest Pain Accreditation requirement, element EC5.M1l2. Troponin units are changed from pg/ml to ng/L. Also, the decimal is removed and results are in whole numbers. PERFORMED BY: [place] [address] PATHOLOGIST INTERACTIVE MEDIA MARKETING STRATEGIST OSCAR ESCOBAR M.D. Performed By: #### C UU #### [address] X-ray reportOrdered By: Noe Pitts on 05-09-2024 Study report [facility] Main [facility] [address] [place] [address] XRay Report Signed Patient: Leighton Arciniega MR#: [id number] : 1945 Acct:[id number] Age/Sex: 78 / M ADM Date: 5 Loc: 4P Room: [address] [place] [address] Type: ADM IN Attending Dr: Devan Drake [...] Noe Pitts M.D.05/09/2024 10:26 PM Dictation Location: [place] [address] Transcribed By: [facility] 05/09/242225 Dictated By: Noe Pitts II, MD 05/09/242223 Signed By: 05/09/242225 [facility] Work Phone: XR chest 2V*on 05-09-2024 XR chest 2V* [facility] Main [facility] [address] [place] [address] XRay Report Signed Patient: Leighton Arciniega MR#: [id number] : 1945 Acct:[id number] Age/Sex: 78 / M ADM Date: 05/09/24 Loc: 4 Room: [address] [place] [address] Type: ADM IN Attending Dr: Devan Drake [...] Noe Pitts M.D.05/09/2024 10:26 PM Dictation Location: [facility]- Transcribed By: [facility] 05/09/242225 Dictated By: Noe Pitts II, MD 05/09/242223 Signed By: 05/09/242225 Normal [facility] Ambulatory Visit Summaryon 0 04-26-2024 [...] Mica Car MD Where: [facility] [address] [place] [address] 2024 11:00 AM EDT With: Where: [facility] You Need to Schedule the Following Appointments Follow Up with Josep SANDHU, Mica Johns, URL, URO When: Where: Medications What How Much When Instructions New finasteride (finasteride 5 mg Tab) 1 Tablets By Mouth Every day Refills: 11 Pickup at [facility] #[id number] Unchanged terazosin (terazosin 10 mg Cap) 1 [...] Duration: 3 (more content not included)... Normal [facility] Urology Office/Clinic Noteon 04-26-2024 Urology Office/Clinic Note [...] unspecified) Pt states he was admitted at [facility] x 4 days due to PNA, Gomez removed and discharged 04/08/24. Pt states he presented back to [facility] ER due to UR. Gomez placed, [...] scan, ~ 80 g) S/p Rezum by [facility] 02/14/24 - 9 treatments, Rt [...] further bleeding since then. Pt went to [place] ER 02/26/24 d/t persistent dysuria. Admitted for 3 days. Received IV abx. Dc'd on Cipro x 10d and Levsin. Urine and blood cx both came back neg. [facility] ER 04/08/24 U.Cx was negative. Pt had an infection at the time of him being admitted in the hospital, is currently on abx. Advised pt to continue to abx that was given at the time of the ER visit. Started on Levaquin 500mg qd x3 wks 04/12/24. -Complete ATB course -See #3 5. 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 Elevated risk [...] DM (diabetes (more content not included)... Normal [facility] Comment on above: Result Comment: [...] AM EST With: Where: [facility] [address] [place] [address] [place] [address]- Wednesday 1:00 PM EST With: Mica Car MD Where: [facility] [address] [address] 2024 11:00 AM EDT With: Where: [facility] You Need to Schedule the Following Appointments Follow Up with Josep SANDHU, Mica Johns, URL, URO When: In 1 month Comments: w/PVR Where: Medications What How Much When Instructions New levofloxacin (Levaquin 500 mg Tab) 1 Tablets By Mouth Every 24 hours Duration: 3 Weeks Pickup at [facility] #[id number] Unchanged acetaminophen (Tylenol Extra Strength 500 mg [...] 3 time (more content not included)... Normal [facility] Urology Office/Clinic Noteon 04-12-2024 Urology Office/Clinic Note Urology Office/Clinic Note Chief Complaint 1 mth f/u HPI Staff 78yr old male pt here for 1mo f/u with P[facility]. S/p Cystoscopy, TRUS 01/27/2024, Rezume done on 02/14/24 w/ Dr. Car. Previous Dx: uti, BPH with urinary obstruction, anticoagulated *terazosin 10 mg qd, sildenafil 100mg PRN pt has Gomez. Pt states he was in [facility] for 4 days for pneumonia, Wednesday he was released and Gomez was taken out. Pt then states he could not urinate so he went back to [facility] and they placed the Gomez. History [...] not urinate so he went back to [facility] and they placed the Gomez, PVR [...] further bleeding since then. Pt went to [place] ER 02/26/24 d/t persistent dysuria. Admitted for 3 days. Received IV abx. Dc'd on Cipro x 10d and Levsin. Urine and blood cx both came back neg. [facility] ER 04/08/24 U.Cx was negative. Pt [...] be stoppe (more content not included)... Normal [facility] Comment on above: Result Comment: Elec tronically Signed By: Mica Car MD\.br\Date and Time Signed: 04/12/24 12:07 EST\.br\Electronically Co-Signed By: Kavita Mukherjee\.br\Date and Time Co-Signed: 04/12/24 11:48 EST Urine Cultureon 03-28-2024 Bacteria identified Cx Nom (U) No Growth 2 Days PERFORMED BY: [place] [address] PATHOLOGIST INTERACTIVE MEDIA MARKETING STRATEGIST OSCAR ESCOBAR M.D. Normal [facility] Comment on above: Performed By: #### C UU #### [address] Urine cultureOrdered By: Derek Vasquez on 03-28-2024 Bacteria identified Cx Nom (U) Urine culture [facility] C Urineon 03-26-2024 Bacteria identified Cx Nom [...] Locations R1: This test was performed at: [facility], [address] [place] [address], [id number]- , , [facility] Comment on above: Performed By: #### 2 [id number] #### [facility] [address] [place] [address] Main OR Preoperative Recordo n 03-20-2024 Main OR Preoperative Record Main OR Preoperative Record Holding Area Document Type FTURO Summary Primary Physician: Mica Car MD Finalized Date/Time: 03/20/24 16:29:34 Pt. Name: LEIGHTON ARCINIEGA /Sex: 1945 Male Med Rec #: [id number] Physician: Mica Car MD Financial #: [id number] Pt. Type: O Room/Bed: / Admit/Disch: 12/27/23 [...] Complaints of Pain: No Skin Integrity Intact, New Site, Warm, & Dry Vitals - EU Blood Pressure 122/75 Pulse 81 bpm Respirations 18 br/min SPO2 96 % Additional None RN Reviewed Yes Specimens Collected Last Modified By: Ankita Gray RN 12/27/23 11:25:48 Finalized By: MICHELLE Marks RN, Ruthann Document Signatures Signed By: Latha David LPN 12/27/23 11:01 Latha David LPN 12/27/23 11:02 MICHELLE Marks RN, Ruthann 03/20/24 16:29 Normal [facility] Urine Cultureon 03-11-2024 Bacteria identified Cx Nom (U) ORGANISM: Prudence glabrata (O:CANGLA) [place] Count 75,000 PERFORMED BY: [place] [address] PATHOLOGIST INTERACTIVE MEDIA MARKETING STRATEGIST OSCAR ESCOBAR M.D. Normal The Counts Include [address] [facility] Comment on above: Performed By: #### C UU #### [address] Urine cultureOrdered By: Derek Vasquez on 03-11-2024 Bacteria identified Cx Nom (U) Abnormal [facility] Urology Office/Clinic Noteon 03-02-2024 Urology Office/Clinic [...] further bleeding since then. Pt went to [place] ER 02/26/24 d/t persistent dysuria. Admitted for [...] 124ml Told him to continue Alfuzosin. Ordered: [id number] Measure Post Void residual urine and/or bladder [...] Urnls Dip Stick Auto w/o Microscopy POC 04959 3. 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 Follow-up [...] Hypercholesteremia Inco (more content not included)... Normal [facility] Comment on above: Result Comment: Elec tronically Signed By: NATA TA PA-C.br\Date and Time Signed: 03/02/24 17:13 EST\.br\Electronically Co-Signed By: Martir Shea\Date and Time Co-Signed: 03/02/24 13:38 EST ECG 12 Leadon 03-01-2024 AV paced rhythm [facility] Work Phone: URINE CULTUREon 02-19-2024 Bacteria identified Cx Nom (U) CULTURE RESULTS 10-50,000 ORGANISMS/mL NORMAL UROGENITAL ELIN Normal [facility] Comment on above: Performed By: #### 6 30-4 #### [facility] ([id number]) [address] [place] [address], [address] [place] [address] URN MACROSCOPIC NURon 2023 BILIRUBIN LETHA Negative Normal NEG [facility] Comment on above: Performed By: #### N UM #### [facility] ([id number]) [address] [place] [address] BLOOD/HGB LETHA Large Abnormal NEG [facility] Comment on above: Performed By: #### N UM #### [facility] ([id number]) [address] [place] [address] GLUCOSE LETHA >=1000 Abnormal NEG [facility] Comment on above: Performed By: #### N UM #### [facility] ([id number]) [address] [place] [address] KETONES LETHA Negative Normal NEG [facility] Comment on above: Performed By: #### N UM #### [facility] ([id number]) [address] [place] [address] LEUKOCYTE ESTERASE LETHA Small Abnormal NEG Pr [facility] Comment on above: Performed By: #### N UM #### [facility] ([id number]) [address] [place] [address] NITRITE LETHA Negative Normal NEG [facility] Comment on above: Performed By: #### N UM #### [facility] ([id number]) [address] [place] [address] PH LETHA 6.0 Normal 5.0-8.5 [facility] Comment on above: Performed By: #### N UM #### [facility] ([id number]) [address] [place] [address] PROTEIN LETHA 100 mg/dL Abnormal NEG [facility] Comment on above: Performed By: #### N UM #### [facility] ([id number]) [address] [place] [address] SPECIFIC GRAVITY LETHA 1.015 Normal 1.003-1.035 [facility] [facility] Comment on above: Performed By: #### N UM #### [facility] ([id number]) [address] [place] [address] UROBILINOGEN LETHA 0.2 eu/dL Normal <1.1 [facility] Comment on above: Performed By: #### N UM #### [facility] ([id number]) [address] [place] [address] Inpatient Patient Summaryon 02-14-2024 Inpatient Patient Summary Inpatient Patient Summary [place] [id number] Clinical Summary Person Information Name: LEIGHTON ARCINIEGA Age: 78 Years : 1945 Sex: Male PCP: Lori Medina MD Marital Status: Race: White Ethnicity: Non- or Language: American Visit Id: Visit Reason: BPH WITH URINARY OBSTRUCTION Speciality: Acuity: Enc Type: Outpatient Med Service: Surgery Arrival: 02/14/2024 09:35:51 Discharge: Dispo Type: Address: [facility] LINDEN TONEY [address] [place] [phone] Provider Notes: Diagnosis: BPH with obstruction/lower urinary [...] day as needed for pain. acetaminophen-hydroc odone (Cylinder 325 mg-5 mg oral tablet) 1 Tablets [...] EU - Rezum Discharge Instructions (CUSTOM) Normal [facility] Main OR Intraoperative Recor don 02-14-2024 Main OR Intraoperative Record Main OR Intraoperative Record IntraOp Document Type FTURO Summary Primary Physician: Mica Car MD Finalized Date/Time: 02/14/24 12:08:58 Pt. Name: LEIGHTON ARCINIEGA/Sex: 1945 Male Med Rec #: [id number] Physician: Mica Car MD Financial #: [id number] Pt. Type: O Room/Bed: / Admit/Disch: 02/14/24 [...] 3 Case Attendee Josep SANDHU, Jocy Perea DOUGHNUT BATTER MIXER, Aura Zambrano Role Performed Surgeon - Primary Teacher Resource - Primary Scrub - Primary Time In [...] Corral 02/14/24 12:08 Jocy Corral 02/14/24 12:08 [facility] Main OR Preoperative Recordo n 02-14-2024 Main OR Preoperative Record Main OR Preoperative Record Holding Area Document Type FTURO Summary Primary Physician: Mica Car MD Finalized Date/Time: 02/14/24 11:48:27 Pt. Name: LEIGHTON ARCINIEGA /Sex: 1945 Male Med Rec #: [id number] Physician: Mica Car MD Financial #: [id number] Pt. Type: O Room/Bed: / Admit/Disch: 02/14/24 [...] Complaints of Pain: No Skin Integrity Intact, New Site, Warm, & Dry Vitals - EU Blood Pressure 152/74 Pulse 61 bpm Respirations 18 br/min SPO2 97 % Additional None RN Reviewed Yes Specimens Collected Last Modified By: Jocy Corral 02/14/24 11:48:23 Finalized By: Jocy Corral Document Signatures Signed By: Latha David LPN 02/14/24 11:05 Jocy Corral 02/14/24 11:48 Jocy Corral 02/14/24 11:48 [facility] Operative Reporton 4 Operative Report [...] clearer. Follow-up in 1 month PVR.. Normal [facility] Comment on above: Result Comment: Elec tronically Signed By: Josep SANDHU, Mica Johns\.br\Date and Time Signed: 02/14/24 12:03 EST Outpatient Surgery Discharge Instructionon 02-14-2024 Outpatient Surgery Discharge Instruction Outpatient Surgery Discharge Instruction [address] [address] Patient Discharge Instructions PERSON INFORMATION [...] While there (more content not included)... Normal [facility] Ambulatory Visit Summaryon 1 04-01-2023 [...] Strength 500 mg oral tablet) acetaminophen-hydroc odone (Cylinder 325 mg-5 mg oral tablet) allopurinol (allopurinol [...] if questions or concerns Unchanged acetaminophen-hydroc odone (Cylinder 325 mg-5 mg oral tablet) 1 Tablets [...] omeprazole (omep (more content not included)... Normal [facility] Urology Office/Clinic Noteon 01-31-2024 Urology Office/Clinic Note Urology Office/Clinic Note [facility] H[facility] Staff 78 year old male patient presents today for a [facility] ER follow up 01/23/24. Pt [...] with voice recognition artificial intelligence software, specifically [employer], [employer] and or [email or web address]. Substitutions may have occurred due to the [...] (N52.9: Male erectile dysfunction, unspecified) Hx of RI in 2002. Has pacemaker in place. Denies [...] in medic (more content not included)... Normal [facility] Comment on above: Result Comment: Elec tronically Signed By: MICHAEL Sr APRN, Anna Herrera\.br\Date and Time Signed: 01/31/24 16:26 EST URINE CULTUREon 01-24-2024 Bacteria identified Cx Nom (U) CULTURE RESULTS NO GROWTH AT <1000 CFU/mL Normal [facility] Comment on above: Performed By: #### 6 30-4 #### [facility] ([id number]) [address], [address] [place] [address] URN MACROSCOPIC NURon 2023 BILIRUBIN LETHA Negative Normal NEG [facility] Comment on above: Performed By: #### N UM #### [facility] ([id number]) [address] [place] [address], [place] [address] BLOOD/HGB LETHA Trace Abnormal NEG [facility] Comment on above: Performed By: #### N UM #### [facility] ([id number]) [address] [place] [address], [place] [address] GLUCOSE LETHA >=1000 Abnormal NEG [facility] Comment on above: Performed By: #### N UM #### [facility] ([id number]) [address] [place] [address] [place] [address] KETONES LETHA Negative Normal NEG [facility] Comment on above: Performed By: #### N UM #### [facility] ([id number]) [address] [place] [address] [place] [address] LEUKOCYTE ESTERASE LETHA Large Abnormal NEG Pr [facility] Comment on above: Performed By: #### N UM #### [facility] ([id number]) [address] [place] [address] [place] [address] NITRITE LETHA Negative Normal NEG [facility] Comment on above: Performed By: #### N UM #### [facility] ([id number]) [address] [place] [address] [place] [address] PH LETHA 6.0 Normal 5.0-8.5 [facility] Comment on above: Performed By: #### N UM #### [facility] ([id number]) [address] [place] [address] [place] [address] PROTEIN LETHA 100 mg/dL Abnormal NEG [facility] Comment on above: Performed By: #### N UM #### [facility] ([id number]) [address] [place] [address] [place] [address] SPECIFIC GRAVITY LETHA 1.015 Normal 1.003-1.035 [facility] Comment on above: Performed By: #### N UM #### [facility] ([id number]) [address] [place] [address], [place] [address] UROBILINOGEN LETHA 0.2 eu/dL Normal <1.1 [facility] Comment on above: Performed By: #### N UM #### [facility] ([id number]) [address] [place] [address], [place] [address] Inpatient Patient Summaryon 12-27-2023 Inpatient Patient Summary Inpatient Patient Summary [address] [address] Clinical Summary Person Information Name: LEIGHTON ARCINIEGA Age: 78 Years : 1945 Sex: Male PCP: Loir Medina MD Marital Status: Race: White Ethnicity: Non- or Language: American Visit Id: Visit Reason: BPH WITH URINARY OBSTRUCTION Speciality: Acuity: Enc Type: Outpatient Med Service: Surgery Arrival: 12/27/2023 09:33:05 Discharge: Dispo Type: Address: [address] [place] [address] [address] [facility] [phone] Provider Notes: Diagnosis: Anticoagulated; Other obstructive and [...] day as needed for pain. acetaminophen-hydroc odone (Cylinder 325 mg-5 mg oral tablet) 1 Tablets [...] Information: EU - Cystoscopy Discharge Instructions (CUSTOM) [facility] Main OR Intraoperative Recor don 12-27-2023 Main OR Intraoperative Record Main OR Intraoperative Record IntraOp Document Type FTURO Summary Primary Physician: Mica Car MD Finalized Date/Time: 12/27/23 11:42:38 Pt. Name: LEIGHTON ARCINIEGA/Sex: 1945 Male Med Rec #: [id number] Physician: Mica Car MD Financial #: [id number] Pt. Type: O Room/Bed: / Admit/Disch: 12/27/23 [...] Micky Vargas Role Performed Surgeon - Primary Teacher Resource - Primary Scrub - Primary Time In [...] By: Ankita Gray RN 12/27/23 11:42 Normal [facility] Operative Reporton Operative Report Operative Report Patient: LEIGHTON ARCINIEGA Age: 78 years Sex: Male : 1945 Associated Diagnoses: None Author: Mica Car MD Procedure Operative Information Details: Date/ Time: 12/27/2023 12:10:00. Pre-Op Dx: BPH w/ LUTS - N40.1. Post-Op Dx: Feeling of incomplete bladder emptying ([id number]-VO R39.14, Working, Medical), Anticoagulated (WET16-SK Z79.01, Discharge, Medical), Same. Anesthesia Type: Local. [...] and Valium prior to procedure. Will need train driver. -Will need blood thinners held prior to procedure. Elevated risk of bleeding discussed. -Patient did better on terazosin. Will DC tamsulosin and restart terazosin 10 mg daily. [facility] [place] Normal [facility] Comment on above: Result Comment: Elec tronically Signed By: Josep SANDHU, Mica Benson.br\Date and Time Signed: 12/27/23 12:14 EDT Outpatient Surgery Discharge Instructionon 12-27-2023 Outpatient Surgery Discharge Instruction Outpatient Surgery Discharge Instruction [place] [id number] Patient Discharge Instructions PERSON INFORMATION Name: LEIGHTON [...] When: Mica Car Comments: Office to schedule [facility] Type Location Start Finish State NCV Pacemaker [...] serve you. Thank you for choosing [facility] Normal [facility] Ambulatory Visit Summaryon 0 11-12-2023 [...] Strength 500 mg oral tablet) acetaminophen-hydroc odone (Cylinder 325 mg-5 mg oral tablet) allopurinol (allopurinol [...] the Following Appointments Follow Up with Josep SANDUH, MIGUELITO Richard, URO When: Where: Medications What [...] if questions or concerns Unchanged acetaminophen-hydroc odone (Cylinder 325 mg-5 mg oral tablet) 1 Tablets [...] Mouth E (more content not included)... Normal [facility] Urology Office/Clinic Noteon 11-12-2023 Urology [...] (N52.9: Male erectile dysfunction, unspecified) Hx of RI in 2002. Has pacemaker in place. Denies [...] antigen) Seborr (more content not included)... Normal [facility] Comment on above: Result Comment: Elec tronically Signed By: Mica Car MD\.br\Date and Time Signed: 11/12/23 16:43 EDT\.br\Electronically Co-Signed By: Maria Luz Mejia\.br\Date and Time Co-Signed: 11/12/23 16:14 EDT PTH Intacton 10-15-2023 Parathyrin.intact [Mass/Vol] 49 pg/mL Invalid Interpretation Code 15-65 [facility] Comment on above: Result Comment: Perf ormed at: [facility] [address] [id number] PhD Carlos Singh Performed By: #### 1 [id number] #### [facility] [address] [place] [address] ED Clinical Summaryon 2023 ED Clinical Summary ED Clinical Summary [address] [address] ED Clinical Summary Person Information Name: LEIGHTON ARCINIEGA [place] Age: 77 Years : 1945 Sex: Male Language: American PCP: Lori Medina MD Marital Status: Visit [...] 13:18:55 10/14/2023 13:18:55 ADDRESS: Danie TONEY [address] [place] [phone] PHYS DOC NOTES: MEDICAL INFORMATION: Prescriptions Given: [id number], [address] [place], [place] [id number], [phone] acetaminophen-hydroc odone (Cylinder 325 mg-5 mg oral tablet) 1 Tablets [...] EDUCATION INFORMATION: Instructions: Acute Knee Pain, Adult, Alrd-ic-Uiav Follow up: With: Address: When: Andrea [address]span[address] [place] [address] Business (1) In 3 days 10/17/2023 With: Address: When: Call to schedule a follow-up appointment with your orthopedic surgeon. Use the Cylinder as needed for pain along with icing. . If you are unable to get in with your orthopedic surgeon, I have provided a referral for another one. In 3 days 10/17/2023 With: Address: When: Lori Medina [facility] [place] [address] Business (1) In 3 days DIAGNOSIS: Posterior left knee pain Normal [facility] ED Note-Physicianon 10-14-19 ED Note-Physician [...] he previously saw an orthopedic surgeon in [facility] for arthritis in which he will follow-up for further management of care. Patient is on Eliquis therefore I cannot prescribe him naproxen or any form of NSAID. Due to his age I did not feel a muscle relaxer was appropriate either. Based on this he is being prescribed 4 doses of Cylinder. He was educated on appropriate use of [...] q4hr for pain, 4 tab(s), Refill(s) 0, [id number], 177, cm, 10/14/23 11:44:00 EDT, Height/Length Dosing, 104.8, kg, 10/14/23 11:44:00 EDT, Weight Dosing Disposition Plan Patient Discharge Condition stable Discharge Disposition home Discharge Prescription List Prescriptions Cylinder 325 mg-5 mg oral tablet, 1 tab(s), Oral, q4hr, PRN Follow-up With When Contact Information Andrea Maddoxfermín In 3 days 10/17/2023 EDT [address] [place] [address]- Business (1) Additional Instructions: Call to schedule a follow-up appointment with your orthopedic surgeon. Use the Cylinder as needed for pain along with icing. . If you are unable to get in with your orthopedic surgeon, I have provided a referral for another one. In 3 days 10/17/2023 EDT Additional Instructions: Lori Carol In 3 days [address] [place] [address]- Business (1) Additional Instructions: Patient Education Acute Knee Pain, Adult, Mxto-kr-Ogpv Attestation Patient seen and evaluated by the physician assistant pastry chef. Attending physician was present in the emergency department and supervised care. This visit was performed by both the physician and an APC. I performed all aspects of the MDM as documented. This report was transcribed using voice recognition software. Every effort was made to ensure accuracy, however, inadvertently computerized pipe fitter welding mistakes may be present. Appropriate healthcare PPE was used in evaluating this patient. The patient was placed in a mask. The healthcare provider was wearing mask, gloves, and utiliz (more content not included)... Normal [facility] Comment on above: Result Comment: Elec tronically Signed By: Vini Quinteros DO\.br\Date and Time Signed: 10/14/23 16:09 EDT\.br\Electronically Co-Signed By: Nayla William PA-C\.br\Date and Time Co-Signed: 10/14/23 13:46 EDT ED Patient Summaryon 024 ED Patient Summary ED Patient Summary [facility] [address] [place], [place] [address] Patient Discharge Instructions Person Information Name: LEIGHTON ARCINIEGA Age: 77 Years Arrival Date: 10/14/2023 11:36:13 Discharge Diagnosis: Posterior left knee pain Primary Care Physician: Lori Medina MD Provider Information Primary Provider: Vini Quinteros DO [employer] Team Member:Nayla William PA-C The exam and treatment you received in the Emergency Department were for an urgent problem and are not intended as complete care. It is important that you follow up with a doctor, nurse practitioner, or physician?s assistant pastry chef for ongoing care. If your symptoms become worse or you do not improve as expected and you are unable to reach your usual health care provider, you should return to the Emergency Department. We are available 24 hours a day. LEIGHTON ARCINIEGA has been given the following list of patient education materials, prescriptions and follow-up instructions: Follow-up Instructions: With: Address: When: Andrea Espana [address] [place], [place] [id number] Business (1) In 3 days 10/17/2023 With: Address: When: Call to schedule a follow-up appointment with your orthopedic surgeon. Use the Cylinder as needed for pain along with icing. . If you are unable to get in with your orthopedic surgeon, I have provided a referral for another one. In 3 days 10/17/2023 With: Address: When: Lori Medina [address] [facility] [place] [address] Business (1) In 3 days In the event that this physician does not participate in your insurance network, please consult with your insurance company to find a nearby participating provider. Patient Education Materials: Acute Knee Pain, Adult, Mlpk-qb-Mayg A MESSAGE TO ALL PATIENTS REGARDING OPIOIDS PRESCRIPTION OPIOIDS: WHAT YOU NEED TO KNOW Prescription opioids can be used to help relieve umeewexd-ka-itjzwn pain and are often prescribed following a [...] or yo (more content not included)... Normal [facility] XR Knee Complete 4+ Views [...] mGy = na DAP = na Normal [facility] Screenson 06-17-2023 Screens [id number] #1.00TIFF Normal [facility] Screens [id number] #1.00TIFF Normal [facility] Ambulatory Visit Summaryon 0 06-16-2023 [...] Mica Car MD Where: [facility] Patient Educationon 06-16-19 24 Patient [...] these instructions at home: Medicines ? Take mglj-tvy-deherdo and prescription medicines only as told by [...] include cig (more content not included)... Normal [facility] Urology Office/Clinic Noteon 06-16-2023 Urology [...] (N52.9: Male erectile dysfunction, unspecified) Hx of RI in 2002. Has pacemaker in place. Denies [...] Information Josep SANDHU, Mica Johns, URL, [facility] [address], [place] [phone] Additional Instructions: Has f/u already scheduled 11/12/23 [...] Amputation, Tonsillectomy. (more content not included)... Normal [facility] Comment on above: Result Comment: Elec tronically Signed By: NATA TA PA-C\.br\Date and Time Signed: 06/16/23 10:56 EDT\.br\Electronically Co-Signed By: Kriss Frankel\.br\Date and Time Co-Signed: 06/16/23 10:48 EDT Screenson 05-10-2023 Screens [id number] #1.00TIFF [facility] Screens [id number] #1.00TIFF [facility] Ambulatory Visit Summaryon 0 05-07-2023 Ambulatory [...] NATA TA PA-C Where: [facility] Normal [address] [place] [address]- \.br\ You Need to Schedule the Following Appointments\.br \ Follow Up with NATA TA PA-C, URL When: \.br\ Comments:\.br\ 1 mos w/ PVR \.br\ Where:\.br\ [address]br\ [place] [address]\.br\ [id number]\.br\ Medications\.br\ What How Much When Instructions\.br \ New tadalafil (tadalafil 10 mg Tab) 1 Tablets By Mouth As Directed as needed for for erectile dysfunction Refills: 3 Take one tab 1 hour prior to sexual activity. Do not exceed 20mg in 48hrs. Pickup at [facility] #[id number]\.br\ New tamsulosin (tamsulosin 0.4 mg Cap) 1 Capsules By Mouth Once a day (in the evening) Refills: 11 Pickup at [facility] #[id number]\.br\ Unchanged acetaminophen (Tylenol Extra Strength 500 mg [...] or concerns \.br\ Pharmacy Information\.br\ [facility][id number]: [address] [place], [place] [id number] [phone]\.br\ Allergies\.br\ Monopril (Dry cough)\.br\ Strawberries (rash)\.br\ Tomatoes [...] Symptoms of this condition include:\.br\ ? \ [facility] Ambulatory Visit Summary LEIGHTON ARCINIEGA [...] med) Where: [address], [place] [phone] Medications What How Much When Instructions Unchanged [...] Every da (more content not included)... Normal [facility] Patient Educationon 05-07-19 Patient Education [...] these instructions at home: Medicines ? Take fhtf-xok-crfqmyf and prescription medicines only as told by [...] include cig (more content not included)... Normal [facility] Urology Office/Clinic Noteon 05-07-2023 Urology [...] (N52.9: Male erectile dysfunction, unspecified) Hx of RI in 2002. Has pacemaker in place. AMANDA [...] Information Josep SANDHU, Mica Johns, URL, [facility] [address], [place] [phone] Additional Instructions: 1 mos w/ PVR Patient Education Erectile Dysfunction I, Kriss Frankel, personally scribed for Dr. Car on 05/07/2023 15:06:02. . Documentation recorded by the scribe, Kriss Frankel, accurately reflects the services(s) I performed and decisions made by me. Authenticated by Dr. Car on 05/07/2023 16:05:51. Problem List/Past Medical History Ongoing Anticoagulated Arthritis Aspirin marshall (more content not included)... Normal [facility] Comment on above: Result Comment: Elec tronically Signed By: Mica Cra MD\.br\Date and Time Signed: 05/07/23 16:06 EST\.br\Electronically [...] Weight Tips; Status:Complete - Retrospective Authorization; Done: [id number] Some eating tips that can help you lose weight.; Status:Complete - Retrospective Authorization; Done: [id number] Essential hypertension Renew: Carvedilol 6.25 MG Oral Tablet; Take 1 tablet twice daily Hyperlipidemia Renew: Simvastatin 20 MG Oral Tablet; TAKE 0.5 TABLET Bedtime SocHx: Former smoker Tobacco Use Screening; Status:Complete; Done: [id number] Patient Instructions Please bring all medicines, vitamins, [...] education sheet. Device check as directed per [facility] protocol Chief Complaint LEIGHTON ARCINIEGA is [...] battery life but I believe it was trim operator error, and not true battery depletion. [...] Screening.on 023 Adult depression screening assessment No [facility] [employer] lk 600 DO Work Phone: Fall risk assessment b) One or more fall s in the last year [facility] DO Work Phone: Tobacco use status [facility] b) [facility] l[facility] DO Work Phone: CBC AUTO DIFFon 05-28-2022 BASO # 0.0 103/ul Normal 0.0-0.1 [facility] [place] [facility] Comment on above: Performed By: #### C BC #### [facility] [address] [place] [address] Dr. Susie Hale Basophils/100 WBC (Bld) 0.5 % Normal 0.2-2.0 [facility] [place] [facility] Comment on above: Performed By: #### C BC #### [facility] [address] [place] [address] Dr. Susie Hale EO # 0.1 103/ul Normal 0.0-0.7 [facility] [place] [facility] Comment on above: Performed By: #### C BC #### [facility] [address] [place] [address] Dr. Susie Hale Eosinophils/100 WBC (Bld) 1.8 % Normal 0.9-7.0 [facility] Comment on above: Performed By: #### C BC #### [facility] [address] [place] [address] Dr. Susie Hale Erythrocyte distribution width (RBC) [Ratio] 13.0 % Normal 11.0-15.0 [facility] Comment on above: Performed By: #### C BC #### [facility] [address] [place] [address] Dr. Susie Hale Hematocrit (Bld) [Volume fraction] 35.0 % Critically low 42.0-54.0 [facility] [place] [facility] Comment on above: Performed By: #### C BC #### [facility] [address] [place] [address] [address] Susie Hale Hemoglobin (Bld) [Mass/Vol] 12.2 g/dL Critically low 14.0-18.0 [facility] [place] [facility] Comment on above: Performed By: #### C BC #### [facility] [address] [place] [address] [address] Susie Hale IG # 0.05 10e3/ul Critically high 0.00-0.03 [facility] [place] [facility] Comment on above: Performed By: #### C BC #### [facility] [address] [place] [address] Dr. Susie Hale IG % 0.8 % Critically high 0.0-0.5 [facility] [place] [facility] Comment on above: Performed By: #### C BC #### [facility] [address] [place] [address] Dr. Susie Hale LYMPH # 1.9 103/ul Normal 1.2-3.8 [facility] [place] [facility] Comment on above: Performed By: #### C BC #### [facility] [address] [place] [address] Dr. Susie Hale Lymphocytes/100 WBC (Bld) 28.7 % Normal 20.5-60.0 [facility] [place] [facility] Comment on above: Performed By: #### C BC #### [facility] [address] [place] [address] Dr. Susie Hale MANUAL DIFF REQ NO Normal [facility] Comment on above: Performed By: #### C BC #### [facility] [address] [place] [address] Dr. Susie Hale MCH (RBC) [Entitic mass] 32.1 pg Normal 25.9-34.0 [facility] Comment on above: Performed By: #### C BC #### [facility] [address] [place] [address] Dr. Susie Hale MCHC (RBC) [Mass/Vol] 34.9 g/dL Normal 29.9-35.2 [facility] Comment on above: Performed By: #### C BC #### [facility] [address] [address] [address] Susie Hale MCV (RBC) [Entitic vol] 92.1 fL Normal 80.0-94.0 [facility] [place] [facility] Comment on above: Performed By: #### C BC #### [facility] [address] [address] [address] Susie Hale MONO # 0.7 103/ul Normal 0.3-0.8 [facility] Comment on above: Performed By: #### C BC #### [facility] [address] [address] [address] Susie Hale Monocytes/100 WBC (Bld) 10.9 % Normal 1.7-12.0 [facility] [place] [facility] Comment on above: Performed By: #### C BC #### [facility] [address] [place] [address] Dr. Susie Hale NEUT # 3.7 103/ul Normal 1.4-6.5 [facility] Comment on above: Performed By: #### C BC #### [facility] [address] [place] [address] Dr. Susie Hale Neutrophils/100 WBC (Bld) 57.3 % Normal 43.0-75.0 [facility] [place] [facility] Comment on above: Performed By: #### C BC #### [facility] [address] [place] [address] Dr. Susie Hale Platelet mean volume (Bld) [Entitic vol] 8.5 fL Critically low 9.5-13.5 [facility] Comment on above: Performed By: #### C BC #### [facility] [address] [place] [address] Dr. Susie Hale PLT 238 103/ul Normal 150-450 [facility] Comment on above: Performed By: #### C BC #### [facility] [address] [place] [address] Dr. Susie Hale RBC 3.80 106/ul Critically low 4.70-6.10 [facility] Comment on above: Performed By: #### C BC #### [facility] [address] [address] [address] Susie Hale WBC 6.5 103/ul Normal 4.0-11.0 [facility] [place] [facility] Comment on above: Performed By: #### C BC #### [facility] [address] [place] [address] STROKE HEAD WOon [...] SANAZ CANO Date: 2022-05-28 18:17 Normal [facility] PROF 14(COMP METB)on 023 Albumin [Mass/Vol] 3.5 g/dL Normal 3.4-5.0 [facility] Comment on above: Performed By: #### C MP #### [facility] [address] [place] [address] Dr. Susie Hale Albumin/Globulin [Mass ratio] 1.1 {ratio} Normal [facility] Comment on above: Performed By: #### C MP #### [facility] [address] [place] [address] Dr. Susie Hale ALP [Catalytic activity/Vol] 87 U/L Normal 46-116 [facility] [place] [facility] Comment on above: Performed By: #### C MP #### [facility] [address] [address] [address] Susie Hale ALT [Catalytic activity/Vol] 16 U/L Normal 16-63 [facility] [place] [facility] Comment on above: Performed By: #### C MP #### [facility] [address] [address] [address] Susie Hale Anion gap [Moles/Vol] 10.0 mmol/L Normal [facility] Comment on above: Performed By: #### C MP #### [facility] [address] [address] [address] Susie Hale AST [Catalytic activity/Vol] 14 U/L Critically low 15-37 [facility] [place] [facility] Comment on above: Performed By: #### C MP #### [facility] [address] [address] [address] Susie Hale Bilirubin [Mass/Vol] 0.2 mg/dL Normal 0.2-1.0 [facility] [place] [facility] Comment on above: Performed By: #### C MP #### [facility] [address] [address] [address] Susie Hale Calcium [Mass/Vol] 8.9 mg/dL Normal 8.5-10.1 [facility] [place] [facility] Comment on above: Performed By: #### C MP #### [facility] [address] [address] [address] Susie Hale Chloride [Moles/Vol] 105 mmol/L Normal 98-107 [facility] Comment on above: Performed By: #### C MP #### [facility] [address] [address] [address] Susie Hale CO2 [Moles/Vol] 25.7 mmol/L Normal 21.0-32.0 [facility] Comment on above: Performed By: #### C MP #### [facility] [address] [address] [address] Susie Hale Creatinine [Mass/Vol] 1.87 mg/dL Critically high 0.70-1.30 [facility] [place] [facility] Comment on above: Performed By: #### C MP #### [facility] [address] [address] [address] Susie Hale EGFR-AF [place] 43 mL/min/1.73m2 Critically low >=60 [facility] [place] [facility] Comment on above: Performed By: #### C MP #### [facility] [address] [address] [address] Susie Hale EGFR-NON AF [place] 35 mL/min/1.73m2 Critically low >=60 [facility] [place] [facility] Comment on above: Performed By: #### C MP #### [facility] [address] [address] [address] Susie Hale Globulin (S) [Mass/Vol] 3.2 g/dL Normal [facility] [place] [facility] Comment on above: Performed By: #### C MP #### [facility] [address] [address] [address] Susie Hale Glucose [Mass/Vol] 256 mg/dL Critically high 74-106 [facility] Comment on above: Performed By: #### C MP #### [facility] [address] [address] [address] Susie Hale Potassium [Moles/Vol] 3.7 mmol/L Normal 3.5-5.1 [facility] [place] [facility] Comment on above: Performed By: #### C MP #### [facility] [address] [address] [address] Susie Hale Protein [Mass/Vol] 6.7 g/dL Normal 6.4-8.2 [facility] Comment on above: Performed By: #### C MP #### [facility] [address] [address] [address] Susie Hale Sodium [Moles/Vol] 137 mmol/L Normal 136-145 [facility] [place] [facility] Comment on above: Performed By: #### C MP #### [facility] [address] [address] [address] Susie Hale Urea nitrogen [Mass/Vol] 22.0 mg/dL Critically high 7.0-18.0 [facility] [place] [facility] Comment on above: Performed By: #### C MP #### [facility] [address] [place], [place] [address] Dr. Susie Hale Urea nitrogen/Creatinine [Mass ratio] 11.8 mg/mg Normal [facility] Comment on above: Performed By: #### C MP #### [facility] [address] [place], [place] [address] Dr. Susie Hale Office Visit (Cardiology)on 12-16-2021 [...] in adult Healthy Weight Tips; Status:Complete; Done: [id number] Some eating tips that can help you lose weight.; Status:Complete; Done: [id number] Essential hypertension Renew: Carvedilol 6.25 MG Oral Tablet; Take 1 tablet twice daily Hyperlipidemia Renew: Simvastatin 20 MG Oral Tablet; TAKE 0.5 TABLET Bedtime SocHx: Former smoker Tobacco Use Screening; Status:Complete; Done: [id number] Unlinked Stop: Aspirin 325 MG Oral Tablet [...] your visit. Device check as directed per [facility] protocol Follow up in 6-9 months [...] skin r (more content not included)... Normal [place] Tobacco Screening.on 022 Adult depression screening assessment No [facility] Yidio 600 DO Work Phone: Fall risk assessment a) No falls within the last year [facility] Magazin 600 DO Work Phone: Tobacco use status CP b) No [facility] 600 DO Work Phone: Tobacco Screening.on 021 Fall risk assessment a) No falls within the last year [facility] [employer] haresh 250 DO Work Phone: Tobacco use status CPHS b) No [facility] Meltyy 250 DO Work Phone: Vital Signs Date Time Vital Sign Value Performing Clinician Facility 05-13-2024 14:53-0500 SaO2% (BldA) [Mass fraction] 95 % Lori Medina MD Work Phone: [facility] 05-13-2024 11:55-0500 Diastolic blood pressure 62 mm[Hg] Lori Medina MD Work Phone: [facility] 05-13-2024 11:55-0500 Heart rate 89 /min Lori Medina MD Work Phone: [facility] 05-13-2024 11:55-0500 Inhaled oxygen flow rate 2 L/min Lori Medina MD Work Phone: [facility] 05-13-2024 11:55-0500 Respiratory rate 17 /min Lori Medina MD Work Phone: [facility] 05-13-2024 11:55-0500 Systolic blood pressure 123 mm[Hg] Lori Medina MD Work Phone: [facility] 05-13-2024 08:00-0500 Body temperature 97.6 [degF] Lori Medina MD Work Phone: [facility] 05-13-2024 06:00-0500 Body weight 88 kg Lori Medina MD Work Phone: [facility] 05-11-2024 04:00-0500 Inhaled oxygen concentration 40 % Lori Medina MD Work Phone: [facility] 05-10-2024 15:22-0500 Body height 177.8 cm Lori Medina MD Work Phone: [facility] 03-01-2024 11:12-0500 Body height 177.8 cm Osvaldo Dickinson MD Work Phone: [facility] 03-01-2024 11:12-0500 Body mass index (BMI) [Ratio] 30.13 kg/m2 Osvaldo Dickinson MD Work Phone: [facility] 03-01-2024 11:12-0500 Body weight 95.25 kg Osvaldo Dickinson MD Work Phone: [facility] 03-01-2024 11:12-0500 Diastolic blood pressure 54 mm[Hg] Osvaldo Dickinson MD Work Phone: [facility] 03-01-2024 11:12-0500 Heart rate 71 /min Osvaldo Dickinson MD Work Phone: [facility] 03-01-2024 11:12-0500 Systolic blood pressure 114 mm[Hg] Osvaldo Dickinson MD Work Phone: [facility] 12-14-2023 13:17-0400 Diastolic blood pressure 70 mm[Hg] Dank Robert DO Work Phone: [facility] 12-14-2023 13:17-0400 Heart rate 68 /min Dank Robert DO Work Phone: [facility] 12-14-2023 13:17-0400 SaO2% (BldA) [Mass fraction] 97 % Dank Robert DO Work Phone: [facility] 12-14-2023 13:17-0400 Systolic blood pressure 152 mm[Hg] Dank Robert DO Work Phone: [facility] 08-25-2023 12:12-0400 Body height 177.8 cm Varghese Caal MD Work Phone: [facility] 08-25-2023 12:12-0400 Body mass index (BMI) [Ratio] 33.43 kg/m2 Varghese Caal MD Work Phone: [facility] 08-25-2023 12:12-0400 Body weight 105.69 kg Varghese Caal MD Work Phone: [facility] 08-25-2023 12:12-0400 Diastolic blood pressure 54 mm[Hg] Varghese Caal MD Work Phone: [facility] 08-25-2023 12:12-0400 Heart rate 60 /min Varghese Caal MD Work Phone: [facility] 08-25-2023 12:12-0400 Systolic blood pressure 126 mm[Hg] Varghese Caal MD Work Phone: [facility] 02-10-2023 11:37-0500 Body height 177.8 cm Varghese Caal MD Work Phone: [facility] 02-10-2023 11:37-0500 Body mass index (BMI) [Ratio] 32.28 kg/m2 Varghese Caal MD Work Phone: [facility] 02-10-2023 11:37-0500 Body weight 102.06 kg Varghese Caal MD Work Phone: [facility] 02-10-2023 11:37-0500 Diastolic blood pressure 58 mm[Hg] Varghese Caal MD Work Phone: [facility] 02-10-2023 11:37-0500 Heart rate 63 /min Varghese Caal MD Work Phone: [facility] 02-10-2023 11:37-0500 Systolic blood pressure 120 mm[Hg] Varghese Caal MD Work Phone: [facility] 07-01-2022 10:54-0400 Body height 177.8 cm Andrea Espinoza Work Phone: [facility] 600 DO Work Phone: 07-01-2022 10:54-0400 Body mass index (BMI) [Ratio] 32.71 kg/m2 Andrea Espinoza Work Phone: [facility] 600 DO Work Phone: 07-01-2022 10:54-0400 Body surface area Derived from formula 2.21 m2 Andrea Espinoza Work Phone: [facility] [place] 600 DO Work Phone: 07-01-2022 10:54-0400 Body weight 103.42 kg Andrea Espinoza Work Phone: [facility] [place] 600 DO Work Phone: 07-01-2022 10:54-0400 Diastolic blood pressure 64 mm[Hg] Andrea Espinoza Work Phone: [facility] [place] 600 DO Work Phone: 07-01-2022 10:54-0400 Heart rate 72 /min Andrea Espinoza Work Phone: [facility] 600 DO Work Phone: 07-01-2022 10:54-0400 Systolic blood pressure 118 mm[Hg] Andrea Vasquezroh Work Phone: [facility] 600 DO Work Phone: 12-16-2021 11:08-0400 Body height 177.8 cm Andrea Espinoza Work Phone: [facility] 600 DO Work Phone: 12-16-2021 11:08-0400 Body mass index (BMI) [Ratio] 33.86 kg/m2 Andrea Houstonh Work Phone: [facility] 600 DO Work Phone: 12-16-2021 11:08-0400 Body surface area Derived from formula 2.24 m2 Andrea Espinoza Work Phone: [facility] 600 DO Work Phone: 12-16-2021 11:08-0400 Body weight 107.05 kg Andrea Espinoza Work Phone: [facility] [place] 600 DO Work Phone: 12-16-2021 11:08-0400 Diastolic blood pressure 64 mm[Hg] Andrea Vasquezroh Work Phone: [facility] 600 DO Work Phone: 12-16-2021 11:08-0400 Heart rate 72 /min Andrea Vasquezroh Work Phone: [facility] [place] 600 DO Work Phone: 12-16-2021 11:08-0400 Systolic blood pressure 132 mm[Hg] Andrea Espinoza Work Phone: [facility] 600 DO Work Phone: 01-22-2021 14:36-0400 Body height 177.8 cm Andrea Espinoza Work Phone: [facility] 250 DO Work Phone: 01-22-2021 14:36-0400 Body mass index (BMI) [Ratio] 34.01 kg/m2 Andrea Espinoza Work Phone: [facility] 250 DO Work Phone: 01-22-2021 14:36-0400 Body surface area Derived from formula 2.24 m2 Andrea Espinoza Work Phone: [facility] 250 DO Work Phone: 01-22-2021 14:36-0400 Body weight 107.5 kg Andrea Espinoza Work Phone: [facility] 250 DO Work Phone: 01-22-2021 14:36-0400 Diastolic blood pressure 54 mm[Hg] Andrea Espinoza Work Phone: [facility] 250 DO Work Phone: 01-22-2021 14:36-0400 Heart rate 76 /min Andrea Espinoza Work Phone: [facility] 250 DO Work Phone: 01-22-2021 14:36-0400 Systolic blood pressure 104 mm[Hg] Andrea Espinoza Work Phone: [facility] 250 DO Work Phone: Encounters Encounter Date Encounter Type Care Provider Facility Start: 05-18-2024 ambulatory Mica Car Facility:[facility] [place] Start: 05-13-2024 Non-patient / Non-visit Nova Medina MD Work Phone: [facility] Physician [facility] Work Phone: Start: 05-12-2024 ambulatory Mica Car Facility:[facility] Start: 05-09-2024 End: 05-13-2024 Evaluation and management of inpatient Lori Medina MD Work Phone: [facility] Work Phone: Start: 04-26-2024 End: 04-26-2024 ambulatory Mica Car [facility] Start: 04-25-2024 End: 04-25-2024 ambulatory Deepti Powell Facility:[facility] [place] Start: 04-25-2024 End: 04-25-2024 ambulatory Mica Car [facility] [place] Start: 04-12-2024 End: 04-12-2024 ambulatory Mica Car [facility] [place] Start: 04-08-2024 Non-patient / Non-visit Nova Medina MD Work Phone: [facility] Physician [facility] Work Phone: Start: 04-06-2024 End: 04-06-2024 ambulatory Mica Car Facility:[facility] Start: 03-28-2024 End: 03-28-2024 ambulatory Benton Vasquez [facility] Work Phone: Start: 03-28-2024 End: 03-28-2024 Departed Referred Benton Vasquez DO [facility] [place] [facility] Start: 03-24-2024 End: 03-24-2024 ambulatory Mica Car Facility:[facility] Start: 03-11-2024 End: 03-11-2024 ambulatory Benton Vasquez Facility:[facility] Start: 03-11-2024 End: 03-11-2024 Departed Referred Benton Vasquez DO [facility] [place] [facility] Start: 03-02-2024 End: 03-02-2024 ambulatory NATA TA [facility] Start: 03-01-2024 End: 03-01-2024 Office outpatient visit 25 minutes Osvaldo Dickinson MD Work Phone: [facility] Comment on above: Paroxysmal atrial fi brillation (Multi) (Primary Dx); Sick sinus syndrome (Multi); Pacemaker; Essential hypertension; Cardiomyopathy, unspecified type (Multi); Mixed hyperlipidemia; Stage 4 chronic kidney disease (Multi); Non-smoker; BMI 30.0-30.9,adult Start: 03-01-2024 End: 03-01-2024 ambulatory [facility] Ambulatory Start: 02-19-2024 End: 02-19-2024 Emergency department patient visit LORI Vallejo Fan [facility] Start: 02-18-2024 End: 02-18-2024 ambulatory Mica Car Facility:[facility] Start: 02-14-2024 End: 02-14-2024 ambulatory Mica Car Facility:[facility] Start: 01-31-2024 End: 01-31-2024 ambulatory Anna Milespatricia Facility:[facility] Start: 01-24-2024 End: 01-24-2024 Emergency department patient visit BOBO Gifford ELIDIA [facility] Start: 01-17-2024 End: 01-17-2024 Office outpatient visit 25 minutes Blanca Alonso MD Work Phone: [facility] Comment on above: Other atopic dermati tis (Primary Dx); Seborrheic keratosis; Lentigines; History of SCC (squamous cell carcinoma) of skin Start: 01-17-2024 End: 01-17-2024 ambulatory BLANCA ALONSO Not Available Start: 12-27-2023 End: 12-27-2023 ambulatory Mica Car Facility:[facility] Start: 12-14-2023 End: 12-14-2023 Bamboo flowsheet Dank Jones DO Work Phone: [facility] Start: 12-14-2023 End: 12-14-2023 Bamboo flowsheet Dank Jones DO Work Phone: [facility] Start: 12-14-2023 End: 12-14-2023 Office outpatient visit 25 minutes Dank Robert DO Work Phone: [facility] Comment on above: VIRGILIO (obstructive sle ep apnea) (Primary Dx); Hypersomnia; PLMD (periodic limb movement disorder); Obesity due to excess calories, unspecified classification, unspecified whether serious comorbidity present; Snoring Start: 12-14-2023 End: 12-14-2023 ambulatory DANK JONES Not Available Start: 12-09-2023 End: 12-09-2023 ambulatory Varghese Caal Facility:[facility] Start: 11-12-2023 End: 11-12-2023 ambulatory Mica Car Facility: [place] Start: 10-14-2023 End: 10-14-2023 Emergency department patient visit Vini Quinteros Facility:[facility] Start: 10-14-2023 ambulatory Barb Elkins cility:[facility] Start: 08-31-2023 End: 08-31-2023 ambulatory BLANCA A PETITTI Not Available Start: 08-25-2023 End: 08-25-2023 Office outpatient visit 25 minutes Varghese Caal MD Work Phone: [facility] Comment on above: Essential hypertensi on (Primary Dx); Sick sinus syndrome (Multi); Mixed hyperlipidemia; Paroxysmal atrial fibrillation (Multi); Dilated cardiomyopathy (Multi); Pacemaker; BMI 33.0-33.9,adult Start: 08-25-2023 End: 08-25-2023 [facility] Start: 08-10-2023 End: 08-10-2023 ambulatory BLANCA A PETITTI Not Available Start: 06-16-2023 End: 06-16-2023 ambulatory NAPOLEON TA Facility: [place] Start: 05-07-2023 End: 05-07-2023 ambulatory Mica Car Facility:[facility] [place] Start: 03-19-2023 End: 03-19-2023 ambulatory BLANCA PETITTI Not Available Start: 03-05-2023 End: 03-05-2023 ambulatory BLANCA A PETITTI Not Available Start: 02-10-2023 End: 02-10-2023 Office outpatient visit 25 minutes Varghese Caal MD Work Phone: [facility] Comment on above: Sick sinus syndrome (CMS/HCC) (Primary Dx); Mobitz type II atrioventricular block; Pacemaker; Essential hypertension; Dilated cardiomyopathy (CMS/HCC); Paroxysmal atrial fibrillation (CMS/HCC) Start: 10-22-[address] Andrea Espinoza Facility: Start: 07-01-2022 Office outpatient vi sit 25 minutes Andrea Espinoza Work Phone: [facility] 600 DO Work Phone: Start: 07-01-[address] Varghese Caal II Facility: Start: 05-28-2022 End: 05-28-[address] TRINO Lange Facility:[facility] Start: 05-14-2022 End: 05-15-2022 ambulatory MARIXA ROY Facility:[facility] Start: 04-23-[address] Andrea Espinoza Facility: Start: 12-31-2021 Rx Renewal Andrea Espinoza Work Phone: [facility] 250 DO Work Phone: Start: 12-16-2021 Office outpatient vi sit 25 minutes Andrea Espinoza Work Phone: [facility] 600 DO Work Phone: Start: 12-16-[address] Varghese Caal II Facility: Start: 01-22-2021 Office outpatient vi sit 25 minutes Andrea Espinoza Work Phone: [facility] 250 DO Work Phone: Procedures Date Procedure [...] DTaP/Tdap/Td Vaccines (2 - Td or Tdap) [facility] Start: 01-25-2025 End: 01-25-2025 Patient encounter procedure 01/25/2025 1:05 PM EST Office Visit [facility] [address] [place] [address] Blanca Alonso MD [address] [place], [place] [id number] [facility] Start: 12-12-2024 End: 12-12-2024 Patient encounter procedure 12/12/2024 1:00 PM EDT Office Visit [facility] [place] [address] [place] [address] Rox Cervantes NP [address] [place], [place] [facility] Start: 11-28-2024 Glaucoma screening Diabetes: R etinopathy Screening [facility] Start: 11-07-2024 End: 11-07-2024 Patient encounter procedure 11/07/2024 10:30 AM EDT Office Visit [place] [address] [address] [place] [address] Osvaldo Dickinson MD [address] [facility] [address] [place] [address] [facility] Start: 05-13-2024 [facility] Start: 05-12-2024 Administration of prophylactic treatment [facility] Start: 05-09-[address] [facility] Start: 05-09-2024 Referral to customer experience associate [facility] Start: 03-28-2024 Urine culture [facility] Start: 03-28-2024 Bacteria identified in Urine by Culture Urine Culture [facility] Start: 03-01-2024 End: 03-01-2024 Patient encounter procedure 03/01/2024 11:00 AM EST [facility] [address] [facility] [address] [place] [address] Osvaldo Dickinson MD [address] [facility] [address] [place] [address] [facility] Start: 01-17-2024 End: 01-17-2024 Patient encounter procedure 01/17/2024 3:15 PM EDT Office Visit [facility] [address] [place] [id number] Blanca Alonso MD [address] [place] [address] [facility] Start: 12-14-2023 End: 12-14-2023 Patient encounter procedure 12/14/2023 1:30 PM EDT Office Visit [facility] [place] [address] [place] [id number] Dank Jones, [address] [place], [place] [id number] Arrived [facility] [place] [facility] Comment on above: Arrived Start: 12-01-2023 Glaucoma screening Diabetes: R etinopathy Screening [facility] Start: 08-25-2023 End: 08-25-2023 Patient encounter procedure 08/25/2023 11:40 AM EDT Office Visit [facility] [address] [place] [id number] Varghese Caal MD [address] [facility] [address] [place] [address] [facility] Start: 06-05-2023 COVID-19 Vaccine () COVID-19 Vaccine () [facility] Start: 04-01-2023 COVID-19 Vaccine (6 - Moderna series) COVID-19 Vaccine (6 - Moderna series) [facility] Start: 02-10-2023 FUV, Provider: Varghese Caal, Status: Pen, Time: 11:30 AM FUV, Provider: Varghese Caal, Status: Pen, Time: 11:30 AM -[facility] 600 DO Work Phone: Start: 07-01-2022 FUV, Provider: Varghese Caal, Status: Pen, Time: 10:40 AM FUV, Provider: Varghese Caal, Status: Pen, Time: 10:40 AM [facility] 600 DO Work Phone: Start: 09-10-2021 FUV, Provider: Varghese Caal, Status: Pen, Time: 2:30 PM FUV, Provider: Varghese Caal, Status: Pen, Time: 2:30 PM [facility] Work Phone: Start: 2020 RSV High Risk: (Elde rly (60+) or Population) (1 - 1-dose 75+ series) RSV High Risk: (Elderly (60+) or Population) (1 - 1-dose 75+ series) [facility] Start: 05-09-2020 Echocardiography Echocardiogram [facility] Start: 2005 RSV patient s and/or patients aged 60+ years (1 - 1-dose 60+ series) RSV patients and/or patients aged 60+ years (1 - 1-dose 60+ series) [facility] Start: 11-26-1995 Zoster Vaccines (1 of 2) Zoste r Vaccines (1 of 2) [facility] Start: 1964 Urine screening for protein Diabetes: Urine Protein Screening [facility] Start: 11-26-1963 Hepatitis C screening Hepatitis C Sc reening [facility] Start: 11-26-1955 Diabetic foot examination Diabetes: Foot Exam [facility] Start: 11-26-1955 Glaucoma screening Diabetes: R etinopathy Screening [facility] Start: 1945 Creatinine measurement Creatinine Le sarah [facility] Start: 1945 Hemoglobin A1c measurement Jennifer betes: Hemoglobin A1C [facility] Start: 1945 Lipid panel Lipid Panel [facility] Start: 1945 Medicare Annual Well ness Visit Medicare Annual Wellness Visit (AWV) [facility] Start: 1945 Potassium measurement Potassium Leve l [facility] Patient referral [facility] Work Phone: Immunizations Immunization Date Immunization Notes Care Provider Severo sneed 01-14-2022 Fluad Quadrivalent 0 .5 ML Intramuscular Prefilled Syringe Andrea Espinoza Work Phone: [facility] 600 DO Work Phone: 01-14-2022 Pfizer COVID-19 Vac Bivalent 30 MCG/0.3ML Intramuscular Suspension Andrea Patel Adictiz Work Phone: [facility] 600 DO Work Phone: 09-03-2021 pneumococcal conjuga te vaccine, 13 valent Dank Jones DO Work Phone: [facility] 02-15-2021 Moderna COVID-19 Vac cine 100 MCG/0.5ML Intramuscular Suspension Andrea Patel Kydaemosyann Work Phone: [facility] 600 DO Work Phone: 01-30-2021 influenza virus vacc ine, unspecified formulation Andrea Amanda Espinoza Work Phone: [facility] 600 DO Work Phone: 11-28-2020 influenza, high dose seasonal, preservative-free Andrea Amanda Vasquezemmazulay Work Phone: [facility] 250 DO Work Phone: Comment on above: Series: 06-20-2020 Moderna COVID-19 Vac cine 100 MCG/0.5ML Intramuscular Suspension Andrea Espinoza Work Phone: [facility] 600 DO Work Phone: 05-20-2020 Moderna COVID-19 Vac cine 100 MCG/0.5ML Intramuscular Suspension Andrea Amanda Espinoza Work Phone: [facility] 250 DO Work Phone: Comment on above: Series: 04-25-2020 Moderna COVID-19 Vac cine 100 MCG/0.5ML Intramuscular Suspension Andrea Amanda Espinoza Work Phone: [facility] 250 DO Work Phone: Comment on above: Series: 12-21-2019 influenza virus vacc ine, unspecified formulation Andrea Patel Pedroemmazulay Work Phone: [facility] 600 DO Work Phone: 12-20-2018 influenza, high dose seasonal, preservative-free Andrea Espinoza Work Phone: [facility] 02-19-2018 influenza virus vacc ine, unspecified formulation Andrea Patel Pedroyann Work Phone: [facility] 600 DO Work Phone: 02-19-2018 pneumococcal polysaccharide vaccine, 23 valent Andrea Espinoza Work Phone: [facility] 250 DO Work Phone: Comment on above: Series: 02-19-2018 pneumococcal vaccine , unspecified formulation Andrea Vasquezemmazulay Work Phone: [facility] 02-18-2017 Influenza, injectabl e, Madin Lakisha Canine Kidney, preservative free, quadrivalent Andrea Espinoza Work Phone: [facility] 600 DO Work Phone: 11-24-2016 influenza, high dose seasonal, preservative-free Andrea Espinoza Work Phone: [facility] 600 DO Work Phone: 12-21-2015 pneumococcal conjuga te vaccine, 13 valent Andrea Espinoza Work Phone: [facility] 250 DO Work Phone: Comment on above: Series: Payers Date Payer Category Payer Self-pay 2022 Medicare [id number] 2022 Department [facility] e ( and others) [id number] 2022 () [id number] 2022 For Life (TFL) F OR LIFE [id number]. [id number] 2022 [employer] ( and others) [id number] 2010 Medicare [id number]. 1.13.647. [id number] 1959 [employer] ( and others) [id number] 1959 Medicare [id number] 1945 Unknown [id number] 2.16840.1.231845.3.579. 2.593 1945 Unknown [id number] 2.16840.1.828135.3.579. 2.593 1945 Unknown [id number] 2.16.840.1.080636.3.579. 2.356 1945 Unknown [id number] 2.16840.1.782181.3.579. 2.356 1945 Unknown [id number] 2.16840.1.965492.3.579. 2.356 1945 Unknown [id number] 2.16.840.1.800231.3.579. 2.356 1945 Unknown [id number] 2.16.840.1.132527.3.579. 2.1259 1945 Unknown [id number] 2.16.840.1.759256.3.579. 2.1259 1945 Unknown [id number] 2.16.840.1.750872.3.579. 2.1259 1945 Unknown [id number] 2.16.840.1.609555.3.579. 2.1259 1945 Unknown [id number] 2.16.840.1.820781.3.579. 2.1259 1945 Unknown [id number] 2.16.840.1.556736.3.579. 2.1259 1945 Unknown [id number] 2.16.840.1.075722.3.579. 2.1286 1945 Unknown [id number] 2.16.840.1.342566.3.579. 2.1286 1945 Unknown [id number] 2.16.840.1.674133.3.579. 2.124 1945 Unknown [id number] 2.16.840.1.597717.3.579. 2.1244 1945 Unknown [id number] 2.16840.1.957233.3.579. 2.72 1945 Unknown [id number] 2.16840.1.410019.3.579. 2.72 1945 Unknown [id number] 2.16840.1.773817.3.579. 2.72 1945 Unknown [id number] 2.16.840.1.904684.3.579. 2.72 1945 Unknown [id number] 2.16840.1.125860.3.579. 2.72 1945 Unknown [id number] 2.16.840.1.151689.3.579. 2.72 1945 Unknown [id number] 2.16.840.1.013371.3.579. 2.72 1945 Unknown [id number] 2.16.840.1.510582.3.579. 2.727 1945 Unknown [id number] 2.16.840.1.293990.3.579. 2.727 1945 Unknown [id number] 2.16.840.1.161683.3.579. 2.727 1945 Unknown [id number] 2.16.840.1.075279.3.579. 2.727 1945 Unknown [id number] 2.16.840.1.489370.3.579. 2.72 1945 Unknown [id number] 2.16.840.1.140220.3.579. 2.72 1945 Unknown [id number] 2.16.840.1.498703.3.579. 2.72 1945 Unknown [id number] 2.16.840.1.646075.3.579. 2.727 1945 Unknown [id number] 2.16.840.1.471111.3.579. 2. 1945 Unknown [id number] 2.16.840.1.695954.3.579. 2.727 1945 Unknown [id number] 2.16.840.1.406765.3.579. 2.72 1945 Unknown [id number] 2.16.840.1.949602.3.579. 2.727 1945 Unknown [id number] 2.16.840.1.649523.3.579. 2.727 Unknown Unknown [id number] 2.16.840.1.287226.3.579. 2.531 Unknown [id number] 2.16.840.1.205256.3.579. 2.531 Unknown [id number] 2.16.840.1.484833.3.579. 2.531 Social History Date Type Detail Facility Start: 02-10-2023 End: 12-14-2023 No illicit drug use No illicit drug use [place] [address] DO Work Phone: Comment on above: quit 04-1995, 1 PPD; Start: 02-10-2023 End: 05-10-2024 Tobacco smoking status NHIS Ex-smoker [facility] Work Phone: End: 03-22-1992 History of tobacco use Current smoker [facility] Work Phone: End: 03-22-1992 History of tobacco use Cigarette Smoker [facility] Work Phone: Start: 10-11-2022 End: 02-10-2023 Tobacco use and exposure Smokeless tobacco non-user [facility] Work Phone: Start: 02-10-2023 End: 12-14-2023 Alcohol intake Lifetime non-drinker (finding) [facility] Work Phone: Start: 02-10-2023 End: 12-14-2023 Tobacco use panel [facility] Work Phone: Start: 1945 Sex Assigned At Not on file [facility] Work Phone: Start: 01-31-2023 End: 03-01-2024 Exposure to SARS-CoV-2 (event) Not sure [facility] Start: 10-11-2022 [facility] Tobacco smoking stat us NHIS Unknown if ever smoked [facility] Work Phone: Start: 03-30-2024 Sex Patient sex un known (finding) [place] [facility] Start: 1945 Sex Assigned At Male F [facility] Start: 05-13-2024 Sex Male (finding) [facility] Start: 05-11-2024 SDOH Follow up SDOH Follow up [facility] Work Phone: Goals Date Patient Goal Desired Activity /State Functional Status Date Assessment Result Facility 05-13-2024 Functional status Patient is Pro gressing Toward Baseline [facility] Work Phone: Mental Status Date Assessment Result Facility 05-13-2024 Cognitive function Cognitive Sta tus Patient at Baseline [facility] Work Phone: Clinical Notes 05-14-2022 to 05-13-2024 Note Date & Type Note Facility 05-13-2024 Progress note Note Date/Time May 13, 2024 12:49pm [facility] [address] [place], [place] [id number] Cardiology Progress Note Signed Patient: Leighton Arciniega MR#: [id number] : 1945 Acct:[id number] Age/Sex: 78 / M Adm Date: 5 Loc: 4 Room: [address] [place] [address] Type: ADM IN Attending Dr: Alexa Corona [...] few weeks has been admitted twice to [place] and was treated for pneumonia. The patient [...] discharge patient over the weekend to the [place] for recovery. His kidney function is unchanged [...] % (Auto) 68.7 Lymph % (Auto) 17.8 [place] % (Auto) 7.9 Eos % (Auto) 5.3 Baso % (Auto) 0.3 Nucleat RBC Rel Count 0.0 Neut # (Auto) 4.3 Lymph # (Auto) 1.1 [place] # (Auto) 0.5 Eos # (Auto) 0.3 [...] MPV Neut % (Auto) Lymph % (Auto) [place] % (Auto) Eos % (Auto) Baso % (Auto) Nucleat RBC Rel Count Neut # (Auto) Lymph # (Auto) [place] # (Auto) Eos # (Auto) Baso # [...] contrast-induced nephropathy, once stable Lexiscan MPI. Last [facility] was normal but was at [facility] in 2012. Plan for outpatient Lexiscan MPI by primary customer experience associate. 3. Continue anticoagulation for now 4. Will see as needed. Please call with any questions. He will f/u with [facility] cardiology. Documented By: John Nettles MD 04/23 05/16 1235 Signed By: <Electronically signed by John Nettles MD> 05/13/24 124 [facility] Work Phone: 1(462) 626-893102-22-2025 [place] [address] Cardiology Progress Note Signed Patient: Leighton Arciniega MR#: [id number] : 1945 Acct:[id number] Age/Sex: 78 / M Adm Date: 5 Loc: Room: [address] [place] [address] Type: ADM IN Attending Dr: Alexa Corona [...] few weeks has been admitted twice to [place] and was treated for pneumonia. The patient [...] to discharge patient overthe weekend to the [place] for recovery. His kidney function is unchanged [...] % (Auto) 68.7 Lymph % (Auto) 17.8 [place] % (Auto) 7.9 Eos % (Auto) 5.3 Baso % (Auto) 0.3 Nucleat RBC Rel Count 0.0 Neut # (Auto) 4.3 Lymph # (Auto) 1.1 [place] # (Auto) 0.5 Eos # (Auto) 0.3 [...] MPV Neut % (Auto) Lymph % (Auto) [place] % (Auto) Eos % (Auto) Baso % (Auto) Nucleat RBC Rel Count Neut # (Auto) Lymph # (Auto) [place] # (Auto) Eos # (Auto) Baso # [...] contrast-induced nephropathy, once stable Lexiscan MPI. Last [facility] was normal butwas at [facility] in 2012. Plan for outpatient Lexiscan MPI by primary customer experience associate. 3. Continue anticoagulation for now 4. Will see as needed. Please call with any questions. He will f/u with [facility] cardiology. Documented By: John Nettles MD 04/23 05/16 1234 Signed By: 05/13/24 1249 [place] [facility]02-21-2025 Progress note Author Rupert Rey [facility] Note Date/Time May 12, 2024 5:40pm [facility] [address] [place] [address] Cardiology Progress Note Signed Patient: Leighton Arciniega MR#: [id number] : 1945 Acct:[id number] Age/Sex: 78 / M Adm Date: 5 Loc: Room: [address] [place] [address] Type: ADM IN Attending Dr: Alexa Corona [...] few weeks has been admitted twice to [place] and was treated for pneumonia. The patient [...] discharge patient over the weekend to the [place] for recovery. His kidney function is unchanged [...] % (Auto) 71.7 Lymph % (Auto) 16.4 [place] % (Auto) 6.8 Eos % (Auto) 4.5 Baso % (Auto) 0.6 Nucleat RBC Rel Count 0.1 Neut # (Auto) 4.3 Lymph # (Auto) 1.0 [place] # (Auto) 0.4 Eos # (Auto) 0.3 [...] MPV Neut % (Auto) Lymph % (Auto) [place] % (Auto) Eos % (Auto) Baso % (Auto) Nucleat RBC Rel Count Neut # (Auto) Lymph # (Auto) [place] # (Auto) Eos # (Auto) Baso # (Auto) PHA Creatinine Clear Sodium Potassium Chloride Carbon Dioxide Anion Gap BUN Creatinine Est GFR (CKD-EPI) Glucose POC Glucose 63 91 214 POC Glucose Comment Calcium 05/12/24 16:26 Corrected WBC Uncorrected WBC Count RBC Hgb Hct MCV MCH MCHC RDW Plt Count MPV Neut % (Auto) Lymph % (Auto) [place] % (Auto) Eos % (Auto) Baso % (Auto) Nucleat RBC Rel Count Neut # (Auto) Lymph # (Auto) [place] # (Auto) Eos # (Auto) Baso # [...] as tolerated Documented By: Rupert Rey MD, [facility] 5 1733 Signed By: <Electronically signed by MD HARSHIL Rey> 05/12/24 1740 [facility] Work Phone: 1(375) 452-568102-21-2025 [place] [id number] Cardiology Progress Note Signed Patient: Leighton Arciniega MR#: [id number] : 1945 Acct:[id number] Age/Sex: 78 / M Adm Date: 5 Loc: Room: [address] [place] [address] Type: ADM IN Attending Dr: Alexa Corona [...] few weeks has been admitted twice to [place] and was treated for pneumonia. The patient [...] to discharge patient overthe weekend to the [place] for recovery. His kidney function is unchanged [...] % (Auto) 71.7 Lymph % (Auto) 16.4 [place] % (Auto) 6.8 Eos % (Auto) 4.5 Baso % (Auto) 0.6 Nucleat RBC Rel Count 0.1 Neut # (Auto) 4.3 Lymph # (Auto) 1.0 [place] # (Auto) 0.4 Eos # (Auto) 0.3 [...] MPV Neut % (Auto) Lymph % (Auto) [place] % (Auto) Eos % (Auto) Baso % (Auto) Nucleat RBC Rel Count Neut # (Auto) Lymph # (Auto) [place] # (Auto) Eos # (Auto) Baso # (Auto) PHA Creatinine Clear Sodium Potassium Chloride Carbon Dioxide Anion Gap BUN Creatinine Est GFR (CKD-EPI) Glucose POC Glucose 63 91 214 POC Glucose Comment Calcium 05/12/24 16:26 Corrected WBC Uncorrected WBC Count RBC Hgb Hct MCV MCH MCHC RDW Plt Count MPV Neut % (Auto) Lymph % (Auto) [place] % (Auto) Eos % (Auto) Baso % (Auto) Nucleat RBC Rel Count Neut # (Auto) Lymph # (Auto) [place] # (Auto) Eos # (Auto) Baso # [...] as tolerated Documented By: Rupert Rey MD, [facility] 5 1733 Signed By: 05/12/24 1740 [facility]02-21-2025 Progress note Author Alexa Corona [facility] Note Date/Time May 12, 2024 2:50pm [facility] [address] [place] [address] Hospitalist Progress Note Signed Patient: Leighton Arciniega MR#: [id number] : 1945 Acct:[id number] Age/Sex: 78 / M Adm Date: 5 Loc: Room: [address] [place] [address] Type: ADM IN Attending Dr: Alexa Corona [...] Laboratory work up and Imaging studies reviewed honey grader and blender - reviewed Exam Physical Exam Vital Signs: [...] hypoxic respiratory failure requiring BiPAP administration at [facility], improving with diuretic therapy, currently downgraded to 6 L nasal cannula, now to 4, I do suspect due to acute systolic congestive heart failure with ejection fraction 20% as per reports from [facility], echocardiogram pending For now I will continue [...] urinary retention during last admission at the [place], he does have appointment with urologist, will keep it in Documented By: Alexa Corona MD 05/12/24 4253 Signed By: <Electronically signed by Alexa Corona MD> 05/12/24 6576 [facility] Work Phone: 1(413) 828-106302-21-2025 [place] [address] Hospitalist Progress Note Signed Patient: Leighton Arciniega MR#: [id number] : 1945 Acct:[id number] Age/Sex: 78 / M Adm Date: 5 Loc: Room: [address] [place] [address] Type: ADM IN Attending Dr: Alexa Corona [...] Laboratory work up and Imaging studies reviewed honey grader and blender - reviewed Exam Physical Exam Vital Signs: [...] hypoxic respiratory failure requiring BiPAP administration at [facility], improving with diuretic therapy, currently downgraded to 6 L nasal cannula, now to 4, I do suspect due to acute systolic congestive heart failure with ejection fraction 20% as per reports from [facility], e chocardiogram pending For now I will [...] urinary retention during last admission at the [place], he does haveappointment with urologist, will keep it in Documented By: Alexa Corona MD 05/12/24 1449 Signed By: 05/12/24 1450 [facility]02-20-2025 Progress note Author Alexa Corona [facility] Note Date/Time May 11, 2024 12:27pm [facility] [address] [place] [address] Hospitalist Progress Note Signed Patient: Leighton Arciniega MR#: [id number] : 1945 Acct:[id number] Age/Sex: 78 / M Adm Date: 5 Loc: Room: [address] [place] [address] Type: ADM IN Attending Dr: Alexa Corona [...] Laboratory work up and Imaging studies reviewed honey grader and blender - reviewed Exam Physical Exam Vital Signs: [...] hypoxic respiratory failure requiring BiPAP administration at [facility], improving with diuretic therapy, currently downgraded to 6 L nasal cannula, now to 4, I do suspect due to acute systolic congestive heart failure with ejection fraction 20% as per reports from [facility], echocardiogram pending For now I will continue [...] signed by Alexa Corona MD> 05/11/24 1227 [facility] Work Phone: 1(912) 299-912202-20-2025 Progress note Author Rupert Rey [facility] Note Date/Time May 11, 2024 12:22pm [facility] [address] [place] [address] Cardiology Progress Note Signed Patient: Leighton Arciniega MR#: [id number] : 1945 Acct:[id number] Age/Sex: 78 / M Adm Date: 5 Loc: 4 Room: [id number] Type: ADM IN Attending Dr: Alexa Corona [...] few weeks has been admitted twice to [place] and was treated for pneumonia. The patient [...] MPV Neut % (Auto) Lymph % (Auto) [place] % (Auto) Eos % (Auto) Baso % (Auto) Nucleat RBC Rel Count Neut # (Auto) Lymph # (Auto) [place] # (Auto) Eos # (Auto) Baso # [...] % (Auto) 78.1 Lymph % (Auto) 11.7 [place] % (Auto) 6.8 Eos % (Auto) 3.3 Baso % (Auto) 0.1 Nucleat RBC Rel Count 0.1 Neut # (Auto) 5.2 Lymph # (Auto) 0.8 L [place] # (Auto) 0.5 Eos # (Auto) 0.2 [...] MPV Neut % (Auto) Lymph % (Auto) [place] % (Auto) Eos % (Auto) Baso % (Auto) Nucleat RBC Rel Count Neut # (Auto) Lymph # (Auto) [place] # (Auto) Eos # (Auto) Baso # [...] failure therapy Documented By: Rupert Rey MD, [facility] 5 1217 Signed By: <Electronically signed by [facility] Rupert Rey> 05/11/24 1222 [facility] Work Phone: 1(719) 647-400002-20-2025 [place] [address] Hospitalist Progress Note Signed Patient: Leighton Arciniega MR#: [id number] : 1945 Acct:[id number] Age/Sex: 78 / M Adm Date: 5 Loc: Room: [address] [place] [address] Type: ADM IN Attending Dr: Alexa Corona [...] Laboratory work up and Imaging studies reviewed honey grader and blender - reviewed Exam Physical Exam Vital Signs: [...] hypoxic respiratory failure requiring BiPAP administration at [facility], improving with diuretic therapy, currently downgraded to 6 L nasal cannula, now to 4, I do suspect due to acute systolic congestive heart failure with ejection fraction 20% as per reports from [facility], e chocardiogram pending For now I will [...] MD 05/11/24 1224 Signed By: 05/11/24 1227 [facility]02-20-[address] [address] Cardiology Progress Note Signed Patient: Leighton Arciniega MR#: [id number] : 1945 Acct:[id number] Age/Sex: 78 / M Adm Date: 5 Loc: Room: [address] [place] [address] Type: ADM IN Attending Dr: Alexa Corona [...] few weeks has been admitted twice to [place] and was treated for pneumonia. The patient [...] MPV Neut % (Auto) Lymph % (Auto) [place] % (Auto) Eos % (Auto) Baso % (Auto) Nucleat RBC Rel Count Neut # (Auto) Lymph # (Auto) [place] # (Auto) Eos # (Auto) Baso # [...] % (Auto) 78.1 Lymph % (Auto) 11.7 [place] % (Auto) 6.8 Eos % (Auto) 3.3 Baso % (Auto) 0.1 Nucleat RBC Rel Count 0.1 Neut # (Auto) 5.2 Lymph # (Auto) 0.8 L [place] # (Auto) 0.5 Eos # (Auto) 0.2 [...] MPV Neut % (Auto) Lymph % (Auto) [place] % (Auto) Eos % (Auto) Baso % (Auto) Nucleat RBC Rel Count Neut # (Auto) Lymph # (Auto) [place] # (Auto) Eos # (Auto) Baso # [...] failure therapy Documented By: Rupert Rey MD, [facility] 5 1217 Signed By: 05/11/24 1222 [facility]02-19-2025 Consult note Author Osvaldo Dickinson [facility] Note Date/Time May 10, 2024 6:30pm [facility] [address] [place] [address] Cardiology Consult Note Signed Patient: Leighton Arciniega MR#: [id number] : 1945 Acct:[id number] Age/Sex: 78 / M Adm Date: 5 Loc: 4 Room: [address] [place] [address] Type: ADM IN Attending Dr: Alexa Corona [...] few weeks has been admitted twice to [place] and was treated for pneumonia. The patient [...] denies chest pain. He described mild arthritis [facility] Medical History COPD (chronic obstructive pulmonary disease) [...] Lymph # (Auto) 0.6 L (1.00-4.8) x10E3/uL [place] # (Auto) 0.3 (0.0-0.8) x10E3/uL Eos # [...] heart failure. Chart suggestto recent echocardiogram at [place] initially showed ejection fraction around 55% while [...] failure Documented By: Osvaldo Dickinson MD 05/10/24 4763 Signed By: <Electronically signed by MD Osvaldo Dickinson> 05/10/24 1830 [facility] Work Phone: 1(813) 367-612602-19-2025 [place] [address] Cardiology Consult Note Signed Patient: Leighton Arciniega MR#: [id number] : 1945 Acct:[id number] Age/Sex: 78 / M Adm Date: 5 Loc: Room: [address] [place] [address] Type: ADM IN Attending Dr: Alexa Corona [...] few weeks has been admitted twice to [place] and was treated for pneumonia. The patient [...] denies chest pain. He described mild arthritis [facility] Medical History COPD (chronic obstructive pulmonary disease) [...] Lymph # (Auto) 0.6 L (1.00-4.8) x10E3/uL [place] # (Auto) 0.3 (0.0-0.8) x10E3/uL Eos # [...] heart failure. Chart suggestto recent echocardiogram at [place] initially showed ejection fraction around 55% while [...] Dickinson MD 05/10/241816 Signed By: 05/10/24 1830 [facility]02-19-2025 Progress note Author Alexa Corona [facility] Note Date/Time May 10, 2024 12:51pm [facility] [address] [place] [address] Hospitalist Progress Note Signed Patient: Leighton Arciniega MR#: [id number] : 1945 Acct:[id number] Age/Sex: 78 / M Adm Date: 5 Loc: Room: [address] [place] [address] Type: ADM IN Attending Dr: Alexa Corona [...] Laboratory work up and Imaging studies reviewed honey grader and blender - reviewed Exam Physical Exam Vital Signs: [...] hypoxic respiratory failure requiring BiPAP administration at [facility], improving with diuretic therapy, currently downgraded to 6 L nasal cannula, now to 4, I do suspect due to acute systolic congestive heart failure with ejection fraction 20% as per reports from [facility] For now I will continue with [employer]um[employer] [...] Eliquis Documented By: Alexa Corona MD 05/10/24 124 Signed By: <Electronically signed by Alexa Corona MD> 05/10/24 1253 [facility] Work Phone: 1(213) 957-388502-19-2025 [place] [address] Hospitalist Progress Note Signed Patient: Leighton Arciniega MR#: [id number] : 1945 Acct:[id number] Age/Sex: 78 / M Adm Date: 5 Loc: Room: [address] [place] [address] Type: ADM IN Attending Dr: Alexa Corona [...] Laboratory work up and Imaging studies reviewed honey grader and blender - reviewed Exam Physical Exam Vital Signs: [...] hypoxic respiratory failure requiring BiPAP administration at [facility], improving with diuretic therapy, currently downgraded to 6 L nasal cannula, now to 4, I do suspect due to acute systolic congestive heart failure with ejection fraction 20% as per reports from [facility] For now I will continue with Bumex [...] MD 05/10/24 1248 Signed By: 05/10/24 1251 [facility]02-18-2025 History and physical note Author Alexa Corona [facility] Note Date/Time May 09, 2024 9:08pm [facility] [address] [place] [address] Hospitalist H&P Signed Patient: Leighton Arciniega MR#: [id number] : 1945 Acct:[id number] Age/Sex: 78 / M Adm Date: 5 Loc: 4 Room: 4M1566-8 Type: ADM IN Attending Dr: Devan Drake MD Copies to: MD Devan Love MD Ruta Semaskiene, MD~ HPI DATE OF EXAMINATION: 05/09/24 HISTORY OF PRESENT ILLNESS: 78 Years old male transferred from [place] with shortness of breath. Patient was hospitalized [...] are negative from what is mentioned to DAILY RELEASE AND DUPE PRINTER General -patient is awake alert oriented ?3, [...] Previous records in the computer system reviewed [facility] Medical History (Updated 05/09/24 @ 21:08 by [...] with ejection fraction 20% as perreports from [facility] For now I will continue with Bumex drip, strict input and output, recheck kidneyfunction in a.m., today labs reviewed from [facility] Consult cardiology due to systolic heart [...] <Electronically signed by Alexa Corona MD> 05/09/242107 [facility] Work Phone: 1(831) 938-294602-18-2025 Evaluation note* Diagnosis Onset Date Resolution Status Admit Date CHF (congestive heart failure) acute May 09, 7:47pm Chronic kidney disease acute Fe bruary 2024 7:47pm Pacemaker acute May 09, 2024 7:47pm Sick sinus syndrome acute Febru rhea 2024 7:47pm [facility] Work Phone: 1(122) 602-491002-18-2025 [place] [address] Hospitalist H&P Signed Patient: Leighton Arciniega MR#: [id number] : 1945 Acct:[id number] Age/Sex: 78 / M Adm Date: 5 Loc: Room: [address] [place] [address] Type: ADM IN Attending Dr: Devan Drake MD Copies to: MD Devan Love MD Ruta Semaskiene, MD~ HPI DATE OF EXAMINATION: 05/09/24 HISTORY OF PRESENT ILLNESS: 78 Years old male transferred from [place] with shortness of breath. Patient was hospitalized [...] are negative from what is mentioned to DAILY RELEASE AND DUPE PRINTER General -patient is awake alert oriented ?3, [...] Previous records in the computer system reviewed [facility] Medical History (Updated 05/09/24 @ 21:08 by [...] with ejection fraction 20% as perreports from [facility] For now I will continue with Bumex drip, strict input and output, recheck kidneyfunction in a.m., today labs reviewed from [facility] Consult cardiology due to systolic heart [...] Alexa Corona MD 05/09/242051 Signed By: 05/09/242107 [facility]02-05-2025 NotePatient Education Urology Indwelling Urinary Catheter Insertion [...] provider. Document Revised: 11/05/2021 Document Reviewed: 11/05/2021 [employer] Patient Education ? 2023 [employer] 04-12-2024 NotePatient Education Urology Benign Prostatic Hyperplasia [...] Follow these instructions at home: ??? Take uyyj-dgr-zksvdsr and prescription medicines only as told by [...] symptoms do not get (more content not included)...[facility]12-12-2024 NotePatient Education Urology Acute Urinary Retention, Male [...] these instructions at home: Medicines ??? Take oynt-jbi-tmnvjkr and prescription medicines only as told by [...] provider. Document Revised: 11/27/2020 Document Reviewed: 11/27/2020 [employer] Patient Education ? 2023 [employer] 03-01-2024 History of Present illness Narrative* Osvaldo [...] to retrieve his recent lab work from [facility] 5. I will see him back [...] and plan. documented in this [facility] Work Phone: 1(832) 113-891812-11-2024 Instructions* Patient Instructions* Betzaida Denney LPN - [...] on exercise. documented in this [facility] Work Phone: [phone]) 619-715411-25-2024 NotePatient Education Rezum Post-Procedure Instructions General Recommendations [...] to the c (more content not included)... [facility]11-11-2024 NotePatient Education Urology Acute Urinary Retention, Male [...] these instructions at home: Medicines ??? Take qvhe-bxo-fagtjgf and prescription medicines only as told by [...] provider. Document Revised: 11/27/2020 Document Reviewed: 11/27/2020 [employer] Patient Education ? 2023 [employer] Benign Prostatic Hyperplasia Benign prostatic hyperplasia (BPH) is an enlarged prostate gland that is caused by the normal agingproc (more content not included)...[facility]10-28-2024 History of Present illness Narrative* Blanca Alonso [...] given intertriginous involvement, topical steroids contraindicated for care home use in this area and he has [...] Next Visit: 1 year documented in this encounterPemiscot [facility] SystemsWwnxhrwuzp26-21-2685 NoteProgress Note-Physician Patient: LEIGHTON ARCINIEGA Age: 78 [...] day(s), # 6 tab(s), Refills(s) 0, Pharmacy: [facility] #[id number], 177, cm, 12/27/23 11:02:00 EDT, Height/Length Dosing, 104, kg, 12/27/23 11:02:00 EDT, Weight Dosing Cylinder 325 mg-5 mg oral tablet: 1 tab(s), Oral, q6hr for pain, 4 tab(s), Refill(s) 0, Take 1 tablet an hour before procedure, post procedure prn, [facility] #[id number], 177, cm, 12/27/23 11:02:00 EDT, Height/Length Dosing, 104, kg, 12/27/23 11:02:00 EDT, Weight Dosing sildenafil 100 mg Tab: 100 mg = 1 tab(s), Oral, As Directed, PRN for erectile dysfunction, Take onetab 1 hour prior to sexual activity., # 30 tab(s), Refills(s) 3, [id number], 177.8, cm, 06/16/23 10:18:00 EDT, Height/Length Dosing, 104.8, kg, 06/16/23 10:18:... terazosin 10 mg Cap: 10 mg = 1 cap(s), Oral, Once a day (at bedtime), # 90 cap(s), Refills(s) 3, Pharmacy: [facility], 177, cm, 12/27/23 11:02:00 EDT, Height/Length Dosing, 104, kg, 12/27/23 11:02:00 EDT, Weight Dosing traMADOL 50 mg Tab: 50 mg = 1 tab(s), Oral, q6hr, Take as needed for pain., # 6 tab(s), Refills(s) 0, Pharmacy: [facility] #[id number], 177.8, cm, 11/12/23 15:35:00 EDT, Height/Length Dosing, [...] Plan: Diagnosis: Prostate hyperplasia with urinary obstruction (FWI72-VT N40.1, Discharge, Medical), Feeling of incomplete bladder emptying (YDS01-CG R39.14, Working, Medical), Anticoagulated (POQ51-VN Z79.01, Discharge, Medical). 78 yo male here [...] and Valium prior to procedure. Will need train driver. The procedural risks, benefits, details, and treatment alternatives have been discussed with the patient. These include bleeding, infection, continued problems urinating, increased frequency with urgency during the healing process, painful urination, need for indwelling cathete (more content not included)... [facility] CenterComment on above:Result Comment: Electronically Signed By: Josep [...] if you have a fever over 100 degrees.[facility] 12-14-2023 History of Present illness Narrative* Dank [...] (hypertension) (CMS/HCC) Hx of psoriasis Kidney disease RI (myocardial infarction) (CMS/HCC) VIRGILIO (obstructive sleep apnea) [...] was counselled on the risk of stroke, RI, and sudden with VIRGILIO, along with the [...] instructions Return to clinic: documented in this encounterPemiscot Memorial Health [id number] NotePatient Education Urology Benign Prostatic Hyperplasia Benign [...] Follow these instructions at home: ? Take sxtq-wqr-tccvwqe and prescription medicines only as told by [...] You develop side effec (more content not included)...[facility]07-25-2024 NoteED Patient Education Note Orthopedics Acute Knee [...] under your knee. General instructions ? Take atrh-rgw-lknivnk and prescription medicines only as told by [...] provider. Document Revised: 08/21/2020 Document Reviewed: 08/21/2020 [employer] Patient Education ? 2022 [employer] 08-25-2023 History of Present illness Narrative* Varghese [...] exam, discussion and plan. [facility] Work Phone: 1(458) 750-364706-05-2024 Instructions* Patient Instructions* Jo Ann Ferrer CMA [...] time of your visit. documented [facility] Work Phone: [phone]) 136-939111-22-2023 History of Present illness Narrative* Varghese Caal [...] on recent pacemaker checks. [facility] Work Phone: [phone]) 145-257911-22-2023 Instructions* Patient Instructions* Alize James LPN - [...] follow up per routine documented in [facility]Joint [facility] Work Phone: [phone]) [phone] NotePROCEDURE: XR KNEE LT 4V or > [...] Electronically authenticated by: JOE DU Date: 2022-05-14 18:40[facility]* Diagnosis Sick sinus syndrome (CMS/HCC)- Primary Sinoatrial node dysfunction Mobitz type II atrioventricular block Mobitz (type) II atrioventricular block Pacemaker Cardiac pacemaker in situ Essential hypertension Unspecified essential hypertension Dilated cardiomyopathy (CMS/HCC) Other primary cardiomyopathies Paroxysmal atrial fibrillation (CMS/HCC) Atrial fibrillation documented in this encounter [facility] Work Phone: Evaluation note* Diagnosis Essential hypertension- Primary Unspecified essential hypertension Sick sinus syndrome (Multi) Sinoatrial node dysfunction Mixed hyperlipidemia Paroxysmal atrial fibrillation (Multi) Atrial fibrillation Dilated cardiomyopathy (Multi) Other primary cardiomyopathies Pacemaker Cardiac pacemaker in situ BMI 33.0-33.9,adult documented in this encounter [facility] Work Phone: Evaluation note* Diagnosis Other atopic dermatitis- Primary Seborrheic keratosis Lentigines History of SCC (squamous cell carcinoma) of skin Personal history of other malignant neoplasm of skin documented in this encounter [facility] VisConProEvaluation note* Diagnosis Paroxysmal atrial fibrillation (Multi)- Primary Atrial fibrillation Sick sinus syndrome (Multi) Sinoatrial node dysfunction Pacemaker Cardiac pacemaker in situ Essential hypertension Unspecified essential hypertension Cardiomyopathy, unspecified type (Multi) Mixed hyperlipidemia Stage 4 chronic kidney disease (Multi) Non-smoker BMI 30.0-30.9,adult documented in this encounter [facility] Work Phone: Evaluation note* Diagnosis VIRGILIO (obstructive sleep apnea)- Primary Obstructive sleep apnea (adult) (pediatric) Hypersomnia Hypersomnia, unspecified PLMD (periodic limb movement disorder) Periodic limb movement disorder Obesity due to excess calories, unspecified classification, unspecified whether serious comorbidity present Snoring Other dyspnea and respiratory abnormality documented in this encounter [facility] HealthcareEvaluation noteNo assessment information availablePromedica [facility] Hospital Work Phone: History of Present illness [...] on the basis of his improve lifestyle modification.-[facility]-Sergio 250 DO Work Phone: History of [...] the merits of diet and weight loss. [employer] [facility] OPTIM[employer]ERx DO Work Phone: History of Present illness [...] battery life but I believe it was trim operator error, and not true battery depletion. [facility] [employer] DO Work Phone: Reason for referral (narrative)* Consultation (Routine) - Authorized Specialty Diagnoses / Procedures Referred By Elida t Referred To Contact Cardiology Diagnoses Sick sinus syndrome ([facility]) Procedures Follow Up In Cardiology Varghese Caal MD 3 [facility] 2, [address] [address] Varghese Caal MD [address] [facility] 2, [address] [place] [address] Referral ID Status Reason Start Date Expiration Date V isits Requested Visits Authorized [id number] Authorized 02/10/2023 02/10/2024 1 1 [facility] Work Phone: Reason for referral (narrative)* Consultation (Routine) - Authorized Specialty Diagnoses / Procedures Referred By Contac t Referred To Contact Cardiology Diagnoses Sick sinus syndrome (Multi) Procedures Follow Up In Cardiology Varghese Caal MD [address] [facility] 2, [address] [place] [address] Osvaldo Dickinson MD [address] [place] [address] 2, [address] [place] [address] Referral ID Status Reason Start Date Expiration Date V isits Requested Visits Authorized [id number] Authorized 08/25/2023 08/24/2024 1 1 [facility] Work Phone: Chief Complaint LEIGHTON [...] content) DATE CREATED AUTHOR 06/01/2022 [facility] pital DATE CREATED AUTHOR AUTHOR'S ORGANIZ ATION 07/03/2022 [employer] DATE CREATED AUTHOR AUTHOR'S ORGANIZ ATION 11/05/2022 [facility] DATE CREATED AUTHOR AUTHOR'S ORGANIZ ATION 01/18/2024 [facility] EPIC DATE CREATED AUTHOR AUTHOR'S ORGANIZ ATION 02/21/2024 [facility] DATE CREATED AUTHOR AUTHOR'S ORGANIZ ATION 03/04/2024 [facility] DATE CREATED AUTHOR AUTHOR'S ORGANIZ ATION 04/02/2024 Ewen Scioto [facility] ical Center DATE CREATED AUTHOR AUTHOR'S ORGANIZ ATION 04/07/2024 Nolen Jimbo [facility] ical Center DATE CREATED AUTHOR AUTHOR'S ORGANIZ ATION 04/28/2024 Ewen Scioto [facility] ical Center DATE CREATED AUTHOR AUTHOR'S ORGANIZ ATION 05/13/2024 [facility] DATE CREATED AUTHOR AUTHOR'S ORGANIZ ATION 05/17/2024 [facility] ical Center Reason for Visit (unrecogniz ed section and content) Reason Comments Follow-up 6-9mo Reason Comments Follow-up 6-9 months Specialty Diagnoses / Procedures Referred By Elida gifford Referred To Contact Cardiology Diagnoses Sick sinus syndrome (Multi) Procedures Follow Up In Cardiology Varghese Caal MD [address] [place] [address] [address], [address] [address] Varghese Caal MD [address] [place] [address] [address], [address] [address] Referral ID Status Reason Start Date Expiration Date V isits Requested Visits Authorized [id number] Authorized 02/10/2023 02/10/2024 1 1 Reason Comments Skin Check Follow-up Reason Comments Follow-up 6-9 months Specialty Diagnoses / Procedures Referred By Contac t Referred To Contact Cardiology Diagnoses Sick sinus syndrome (Multi) Procedures Follow Up In Cardiology Varghese Caal MD Traboulssi, Mourhaf, MD [address] [place] [address] [address], [address] [address] Phone: tel: fax: Referral ID Status Reason Start Date Expiration Date V isits Requested Visits Authorized [id number] Authorized 08/25/2023 08/24/2024 1 1 Reason Comments [...] 09, 2024 End: May 13, 2024 Gabriela Aadme RN Other Provider Active Star t: May [...] 2024 End: May 13, 2024 Sanaz Stewart [facility]- Other Provider Active Sta rt: May 09, 2024 End: May 13, 2024 Team Status: Active Member Role Status Dates Lori Medina MD Primary Care Provider Active Start: May 13, 2024 Alexa Corona MD Admit Provider, [facility] er Provider Active Start: May 13, 2024 Gabriela Adame RN Other Provider Active Star t: May 13, 2024 W Manpreet Harvey DO Other Provider Active Start : May 13, 2024 Rupert Rey MD Other Provider Active Start: May 13, 2024 Varghese Caal MD Other Provider Active Start: April Osvaldo Dikcinson MD Other Provider Active St art: May 13, 2024 Ben Calderon MD Other Provider Active Start: May 13, 2024 Allie Ramírez APRN Other Provider Active Start : May 13, 2024 Evelyn Zhang MD Other Provider Active Start: ebruary 2024 Lorenzo Dotson MD Other Provider Active Start: May 13, 2024 Rajat Foster MD Other Provider Active Start: ebruary 2024 Sanaz Stewart , [employer]- Other Provider Active Sta rt: May 13, 2024 John Nettles MD Attending Provider Active Start: April Pathology Specialist Relationship Specialty Start Date End Date DemarcusAndrea biswas DO [address] [place] [address] PCP - General 03/22/99 Pathology Specialist Relationship Specialty Start Date End Date DemarcuszulayAndrea DO [facility] [place] [address] PCP - General 03/22/99 Pathology Specialist Relationship Specialty Start Date End Date Lori Medina MD [address] [place] [address] PCP - General Family Medicine 10/09/22 Pathology Specialist Relationship Specialty Start Date End Date DemarcuszulayAndrea DO [facility] [place] [address] PCP - General 03/22/99 Pathology Specialist Relationship Specialty Start Date End Date Lori Medina MD [address] [place] [address] PCP - General Family Medicine 10/09/22 Pathology Specialist Relationship Specialty Start Date End Date Lori Medina MD [address] [place] [address] PCP - General Family Medicine 10/09/22 Goals [...] BE BASED ON THE PRIMARY CLINICAL RECORDS. [employer] provides no warranty or guarantee of the accuracy or completeness of information in this document.
[2024-05-19] MEDS: IPRATROPIUM/ALBUTEROL SULFATE 3 ML AMPUL.NEB IH ×5 (01:22→23:21)
[2024-05-19] MEDS: ALBUTEROL SULFATE 2.5 MG/3 ML VIAL NEB IH (04:47)
--- NOTE | 2024-05-19 04:47 | RESP.RT ---
Pt complaining of SOB. HHN given at this time. SP02 95% on 6L nasal cannula, HR 85, RR 20.
[2024-05-19 05:42] LABS: Basophils Percent Auto 0.1 % (0.2-2.0); Eosinophils Absolute Auto 0.1 10^3/uL (0.0-0.7); Eosinophils Percent Auto 0.9 % (0.9-7.0); Hemoglobin 7.8 g/dL (14.0-18.0); Immature Granulocytes Abs Auto 0.04 10^3/uL (0.00-0.03); Immature Granulocytes Pct Auto 0.5 % (0.0-0.5); Lymphocytes Absolute Auto 1.1 10^3/uL (1.2-3.8); Lymphocytes Percent Auto 13.2 % (20.5-60.0); Mean Corpuscular HGB Conc 33.1 g/dL (29.9-35.2); Mean Corpuscular Hemoglobin 31.7 pg (25.9-34.0); Mean Corpuscular Volume 95.9 fL (80.0-94.0); Mean Platelet Volume 8.8 fL (9.5-13.5); Monocytes Absolute Auto 0.6 10^3/uL (0.3-0.8); Monocytes Percent Auto 7.5 % (1.7-12.0); Neutrophils Absolute Auto 6.4 10^3/uL (1.4-6.5); Neutrophils Percent Auto 77.8 % (43.0-75.0); Platelet Count 117 10^3/uL (150-450); Red Blood Count 2.46 10^6/uL (4.70-6.10); Red Cell Distribution Width 15.4 % (11.0-15.0); White Blood Count 8.2 10^3/uL (4.0-11.0)
[2024-05-19 05:55] LABS: Hematocrit 23.6 % (42.0-54.0)
[2024-05-19 05:57] LABS: Anion Gap 12.1; Carbon Dioxide 24.5 mmol/L (21.0-32.0); Chloride 102 mmol/L (98-107); Estimated GFR (African America 47 (>=60 mL/min/1.73m^2); Estimated GFR (Non-African Ame 39 (>=60 mL/min/1.73m^2); Glucose 270 mg/dL (74-106); Magnesium 1.3 mg/dL (1.8-2.4); Potassium 3.6 mmol/L (3.5-5.1); Sodium 135 mmol/L (136-145)
--- OUTSIDE RECORDS SUMMARY | 2024-05-19 06:15 | XMS_ITS | CCD ---
Author Organization [facility]iniSyne Care Team Providers Care Welfare Director Name Role Phone Andrea Espinoza Unavailable Unavailable [...] Provider Lori Medina MD Primary Care Provider [phone] BLANCA ALONSO Attending Unavailable BLANCA ALONSO [...] Care Provider Alexa Corona MD Admit Provider [phone] Alexa Corona MD Attending Provider Deep GODINEZ, Gabriela Other Provider Unavailable Shirley Harvey DO Other Provider Rupert Rey MD Other Provider [phone] Varghese Caal MD Other Provider Osvaldo Dickinson MD Other Provider Ben Calderon MD Other Provider Allie Ramírez APRN Other Provider Evelyn Zhang MD Other Provider Mauri SANDHU, Lorenzo Foreman Other Provider Rajat Foster MD Other Provider [facility] Other Provider Benton Vasquez Admitting Unavailable Benton Vasquez Attending [...] Enalapril; 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: [enalapril] Drug Allergy 02-10-20 23 [facility] (19 sources) Metoprolol; 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: [metoprolol] Drug Allergy 10-12-19 23 Cough, Unknown -[facility] DO Work Phone: (4 sources) Fosinopril; 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: [Monopril] Drug Allergy 03-16-20 14 [facility] (1 source) Metoprolol Drug Allergy 05-16-19 15 [facility] (2 sources) strawberry allergenic extract Drug Allergy 05-16-19 15 Rash [facility] (1 source) tomato allergenic extract Drug Allergy 05-16-19 15 [facility] (7 sources) Fosinopril; 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: [FOSINOPRIL] Drug Allergy 10-12-19 23 Unknown [facility] Work Phone: (3 sources) hydroCHLOROthiazide / Metoprolol; 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: [hydrochlorothiazide-m etoprolol] Drug Allergy [facility] Repository (3 sources) Morganza; 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: [Strawberries] Food allergy (disorder) [facility] Rep[facility] (3 sources) Tomatoes; 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: [Tomatoes] Food allergy (disorder) [facility] Repository (1 source) Fosinopril Drug Allergy 05-09-19 [facility] Repository (1 source) Metoprolol Drug Allergy 05-09-19 [facility] Repository (1 source) strawberry allergenic extract Drug Allergy 05-09-19 [facility] Repository Medications Current Medications Medication Drug Class(es) Dates Sig (Normalized) Sig (Original) acetaminophen 500 mg oral capsule (14 sources) Start: 05-09-2024 take 2 capsules by mouth every six hours as needed for pain Acetaminophen 500 mg capsule Active 1000 MG PO Every 6 hours as needed for fever or pain May 09, 2024 12:00am take 1 capsule by mo [facility] every six hours as needed [...] sources) Polyene Antifungal Start: 08-10-2023 nystatin (Mycostatin) [id number] UNIT/GM powder Indications: Erythema intertrigo Apply to [...] Start: 01-14-2021 take 1 capsule by mo [facility] once daily before mealtime omeprazole [...] Start: 01-14-2021 take 2 tablets by mo [facility] once daily Spironolactone 25 MG [...] disease (2 sources) Atherosclerotic heart disease of [place] coronary artery without angina pectoris; 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: [Old [...] 06-01-2022 10-11-2022 Chronic Other aftercare (1 source) global regulatory lead (current) use of aspirin; 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: [RESIDENTIAL CURRENT USE OF ASPIRIN] Onset: 06-01-2022 Episodic Other aftercare (1 source) Other senior care (current) drug therapy; 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: [OTH SHIP CARPENTER CURRENT DRUG THERAPY] Onset: 06-01-2022 Episodic Other [...] Urination Onset: 01-24-2024 Unclassified (1 source) A [facility] screening has identified you as FRAIL or [...] Four Ways to Beat the Frailty Risk [email or web address]-jcl-jgzwddlxuu/sta d-cwziab-ddkz-ways-to- zkmr-klc-mey ilty-risk 05-13-2024 Urinary tract infections (1 source) [...] gap [Moles/Vol] 9.6 mmol/L Normal 6.0-15.0 [facility] Comment on above: Performed By: #### B MP, CBC #### [place] [address] [place] Calcium [Mass/Vol] 8.5 mg/dL Low 8.6-10.3 [facility] Comment on above: Performed By: #### B MP, CBC #### [place] [address] [place] Chloride [Moles/Vol] 103 mmol/L Normal 98-107 [facility] Comment on above: Performed By: #### B MP, CBC #### [facility] [address] [id number] [place] CO2 [Moles/Vol] 33.9 mmol/L High 21.0-31.0 [facility] Comment on above: Performed By: #### B MP, CBC #### [facility] [address] [place] [id number] [place] Creatinine [Mass/Vol] 1.51 mg/dL High 0.70-1.30 [facility] Comment on above: Performed By: #### B MP, CBC #### [address] Creatinine Clr Calc Pharmacy 41.63 Normal [facility] Comment on above: Result Comment: PERF ORMED BY: [place] [address] PATHOLOGIST CONSOLIDATION ACCOUNTANT OSCAR ESCOBAR M.D. Performed By: #### B MP, CBC #### [address] Estimated GFR 46.982 mL/Min Normal [facility] Comment on above: Performed By: #### B MP, CBC #### [address] Glucose [Mass/Vol] 139 mg/dL High 70-100 [facility] Comment on above: Result Comment: [place] Glucose Reference Range is dependent on time and content of last meal. Glucose of more than 200 mg/dL in a nonstressed, ambulatory subject supports the diagnosis of Diabetes Mellitus. ADA recommended reference range Performed By: #### B MP, CBC #### [address] Potassium [Moles/Vol] 3.5 mmol/L Normal 3.5-5.1 [facility] Comment on above: Performed By: #### B MP, CBC #### [address] Sodium [Moles/Vol] 143 mmol/L Normal 136-145 [facility] Comment on above: Performed By: #### B MP, CBC #### [address] Urea nitrogen [Mass/Vol] 62 mg/dL High 7-25 [facility] Comment on above: Performed By: #### B MP, CBC #### [place] [address] [place] Basophils Auto (Bld) [#/Vol] Ordered By: Alexa Corona on 05-13-2024 Basophils (Bld) [#/Vol] Automated basophil count 0.0-0.2 [facility] Basophils/100 WBC Auto (Bld) Ordered By: Alexa Corona on 05-13-2024 Basophils/100 WBC (Bld) Automated basophil % . [facility] Calcium [Mass/volume] in Ser um or PlasmaOrdered By: Alexa Corona on 05-13-2024 Calcium [Mass/Vol] Calcium [Mass/volume] in Serum or Plasma Low 8.6-10.3 [facility] Carbon dioxide, total [Moles /volume] in Serum or PlasmaOrdered By: Alexa Corona on 05-13-2024 CO2 [Moles/Vol] Carbon dioxide, total [Moles/volume] in Serum or Plasma High 21.0-31.0 [facility] Chloride [Moles/volume] in S chelo or PlasmaOrdered By: Alexa Corona on 05-13-2024 Chloride [Moles/Vol] Chloride [Moles/volume] in Serum or Plasma 98-107 [facility] Complete Blood Count Auto Di ffon 05-13-2024 Basophils (Bld) [#/Vol] 0.0 10*3/uL Normal 0.0-0.2 [facility] Comment on above: Result Comment: PERF ORMED BY: [place] [address] PATHOLOGIST CONSOLIDATION ACCOUNTANT OSCAR ESCOBAR M.D. Performed By: #### B MP, CBC #### [facility] [address] [place] [address] [place] Basophils/100 WBC (Bld) 0.3 % Normal . [facility] Comment on above: Performed By: #### B MP, CBC #### [facility] [address] [place] [id number] [place] Eosinophils (Bld) [#/Vol] 0.3 10*3/uL Normal 0.0-0.45 [facility] Comment on above: Performed By: #### B MP, CBC #### [place] [address] [place] Eosinophils/100 WBC (Bld) 5.3 % Normal . [facility] Comment on above: Performed By: #### B MP, CBC #### [address] Erythrocyte distribution width (RBC) [Ratio] 16.3 % High 12.0-14.8 [facility] Comment on above: Performed By: #### B MP, CBC #### [address] Hematocrit (Bld) [Volume fraction] 26.2 % Low 38.8-50.0 [facility] Comment on above: Performed By: #### B MP, CBC #### [address] Hemoglobin (Bld) [Mass/Vol] 9.1 g/dL Low 13.0-17.0 [facility] Comment on above: Performed By: #### B MP, CBC #### [address] Lymphocytes (Bld) [#/Vol] 1.1 10*3/uL Normal 1.00-4.8 [facility] Comment on above: Performed By: #### B MP, CBC #### [address] Lymphocytes/100 WBC (Bld) 17.8 % Normal . [facility] Comment on above: Performed By: #### B MP, CBC #### [address] MCH (RBC) [Entitic mass] 32.8 pg Normal 27.5-35.2 [facility] Comment on above: Performed By: #### B MP, CBC #### [address] MCV (RBC) [Entitic vol] 95.0 fL Normal 83.5-101 [facility] Comment on above: Performed By: #### B MP, CBC #### [address] Mean Corpuscular HGB Conc 34.6 g/dL Normal 32.5-35.6 [facility] Comment on above: Performed By: #### B MP, CBC #### [address] [address] [place] Monocytes (Bld) [#/Vol] 0.5 10*3/uL Normal 0.0-0.8 [facility] Comment on above: Performed By: #### B MP, CBC #### [address] Monocytes/100 WBC (Bld) 7.9 % Normal . [facility] Comment on above: Performed By: #### B MP, CBC #### [address] Neutrophils (Bld) [#/Vol] 4.3 10*3/uL Normal 1.8-7.7 [facility] Comment on above: Performed By: #### B MP, CBC #### [address] Neutrophils/100 WBC (Bld) 68.7 % Normal . [facility] Comment on above: Performed By: #### B MP, CBC #### [address] NRBC% 0.0 /100{WBC} Normal 0-0.5 [facility] Comment on above: Performed By: #### B MP, CBC #### [address] Platelet mean volume (Bld) [Entitic vol] 6.9 fL Normal 6.6-10.1 [facility] Comment on above: Performed By: #### B MP, CBC #### [address] Platelets (Bld) [#/Vol] 115 10*3/uL Low 150-450 [facility] Comment on above: Performed By: #### B MP, CBC #### [address] RBC (Bld) [#/Vol] 2.76 10*6/uL Low 3.90-5.60 [facility] Comment on above: Performed By: #### B MP, CBC #### [address] WBC (Bld) [#/Vol] 6.3 10*3/uL Normal 4.1-10.5 [facility] Comment on above: Performed By: #### B MP, CBC #### [facility] [address] Creatinine [Mass/volume] in Serum or PlasmaOrdered By: Alexa Corona on 05-13-2024 Creatinine [Mass/Vol] Creatinine [Mass/volume] in Serum or Plasma High 0.70-1.30 [facility] Eosinophils Auto (Bld) [#/Vo l]Ordered By: Alexa Corona on 05-13-2024 Eosinophils (Bld) [#/Vol] Automated eosinophil count 0.0-0.45 [facility] Eosinophils/100 WBC Auto (Bl d)Ordered By: Alexa Corona on 05-13-2024 Eosinophils/100 WBC (Bld) Automated eosinophil % . [facility] Erythrocyte distribution wid th Auto (RBC) [Ratio]Ordered By: Alexa Corona on 05-13-2024 Erythrocyte distribution width (RBC) [Ratio] Erythrocyte distribution width [Ratio] by Automated count High 12.0-14.8 [facility] Glucose Glucometer (BldC) [M ass/Vol]Ordered By: Alexa Corona on 05-13-2024 Glucose [Mass/Vol] Capillary blood glucose measurement by glucometer (mass/volume) [facility] Comment on above: Random Glucose Refer ence Range is dependent on time and content of last meal. Glucose of more than 200 mg/dL in a nonstressed, ambulatory subject supports the diagnosis of Diabetes Mellitus. Glucose Poct Glucometerson 0 05-13-2024 Glucose [Mass/Vol] 379 mg/dL Normal [facility] Comment on above: Result Comment: [place] Glucose Reference Range is dependent on time and content of last meal. Glucose of more than 200 mg/dL in a nonstressed, ambulatory subject supports the diagnosis of Diabetes Mellitus. PERFORMED BY: [facility] [address] [place] [address] PATHOLOGIST CONSOLIDATION ACCOUNTANT OSCAR ESCOBAR M.D. Performed By: #### C UU #### [facility] [address] Glucose [Mass/volume] in Ser um or PlasmaOrdered By: Alexa Corona on 05-13-2024 Glucose [Mass/Vol] Glucose [Mass/volume] in Serum or Plasma High 70-100 [facility] Comment on above: ADA recommended refe rence rangeRandom Glucose Reference Range is dependent on time and content of last meal. Glucose of more than 200 mg/dL in a nonstressed, ambulatory subject supports the diagnosis of Diabetes Mellitus. Hematocrit Auto (Bld) [Volum e fraction]Ordered By: Alexa Corona on 05-13-2024 Hematocrit (Bld) [Volume fraction] Hematocrit [Volume Fraction] of Blood by Automated count Low 38.8-50.0 [facility] Hemoglobin [Mass/volume] in BloodOrdered By: Alexa Corona on 05-13-2024 Hemoglobin (Bld) [Mass/Vol] Hemoglobin [Mass/volume] in Blood Low 13.0-17.0 [facility] Leukocytes [#/volume] correc gabrielle for nucleated erythrocytes in Blood by Automated counOrdered By: Alexa Corona on 05-13-2024 WBC corrected for nucl RBC Auto (Bld) [#/Vol] Leukocytes [#/volume] corrected for nucleated erythrocytes in Blood by Automated coun 4.1-10.5 [facility] Lymphocytes Auto (Bld) [#/Vo l]Ordered By: Alexa Corona on 05-13-2024 Lymphocytes (Bld) [#/Vol] Lymphocytes [#/volume] in Blood by Automated count 1.00-4.8 [facility] Lymphocytes/100 WBC Auto (Bl d)Ordered By: Alexa Corona on 05-13-2024 Lymphocytes/100 WBC (Bld) Lymphocytes/100 leukocytes in Blood by Automated count . [facility] MCH Auto (RBC) [Entitic mass ]Ordered By: Alexa Corona on 05-13-2024 MCH (RBC) [Entitic mass] MCH [Entitic mass] by Automated count 27.5-35.2 [facility] MCHC Auto (RBC) [Mass/Vol]Or dered By: Alexa Corona on 05-13-2024 MCHC (RBC) [Mass/Vol] MCHC [Mass/volume] by Automated count 32.5-35.6 [facility] MCV Auto (RBC) [Entitic vol] Ordered By: Alexa Corona on 05-13-2024 MCV (RBC) [Entitic vol] MCV [Entitic volume] by Automated count 83.5-101 [facility] Monocytes Auto (Bld) [#/Vol] Ordered By: Alexa Corona on 05-13-2024 Monocytes (Bld) [#/Vol] Automated blood monocyte count 0.0-0.8 [facility] Monocytes/100 WBC Auto (Bld) Ordered By: Alexa Corona on 05-13-2024 Monocytes/100 WBC (Bld) Automated monocyte % . [facility] Neutrophils Auto (Bld) [#/Vo l]Ordered By: Alexa Corona on 05-13-2024 Neutrophils (Bld) [#/Vol] Neutrophils [#/volume] in Blood by Automated count 1.8-7.7 [facility] Neutrophils/100 WBC Auto (Bl d)Ordered By: Alexa Corona on 05-13-2024 Neutrophils/100 WBC (Bld) Automated neutrophil % . [facility] No Panel InformationOrdered By: Alexa Corona on 05-13-2024 Estimated GFR (CKD-EPI) 46.982 mL/Min [facility] Creatinine Clearance (Chem 41.63 [facility] Nucleated erythrocytes [Pres ence] in Blood by Automated countOrdered By: Alexa Corona on 05-13-2024 Nucleated RBC Auto Ql (Bld) Nucleated erythrocytes [Presence] in Blood by Automated count 0-0.5 [facility] Platelet mean volume Auto (B ld) [Entitic vol]Ordered By: Alexa Corona on 05-13-2024 Platelet mean volume (Bld) [Entitic vol] Platelet mean volume [Entitic volume] in Blood by Automated count 6.6-10.1 [facility] Platelets Auto (Bld) [#/Vol] Ordered By: Alexa Corona on 05-13-2024 Platelets (Bld) [#/Vol] Platelets [#/volume] in Blood by Automated count Low 150-450 [facility] Potassium [Moles/volume] in Serum or PlasmaOrdered By: Alexa Corona on 05-13-2024 Potassium [Moles/Vol] Potassium [Moles/volume] in Serum or Plasma 3.5-5.1 [facility] RBC Auto (Bld) [#/Vol]Ordere d By: Alexa Corona on 05-13-2024 RBC (Bld) [#/Vol] Erythrocytes [#/volume] in Blood by Automated count Low 3.90-5.60 [facility] Serum or plasma anion gap de terminationOrdered By: Alexa Corona on 05-13-2024 Anion gap [Moles/Vol] Serum or plasma anion gap determination 6.0-15.0 [facility] Sodium [Moles/volume] in Ser um or PlasmaOrdered By: Alexa Corona on 05-13-2024 Sodium [Moles/Vol] Sodium [Moles/volume] in Serum or Plasma 136-145 [facility] Urea nitrogen [Mass/volume] in Serum or PlasmaOrdered By: Alexa Corona on 05-13-2024 Urea nitrogen [Mass/Vol] Urea nitrogen [Mass/volume] in Serum or Plasma High 7-25 [facility] WBC Auto (Bld) [#/Vol]Ordere d By: Alexa Corona on 05-13-2024 WBC (Bld) [#/Vol] Leukocytes [#/volume] in Blood by Automated count 4.1-10.5 [facility] Basic Metabolic Panelon 04-23 Anion gap [Moles/Vol] 9.2 mmol/L Normal 6.0-15.0 [facility] Comment on above: Performed By: #### B MP, CBC #### [facility] [address] Calcium [Mass/Vol] 8.6 mg/dL Normal 8.6-10.3 [facility] Comment on above: Performed By: #### B MP, CBC #### [facility] [address] [place] [address] Chloride [Moles/Vol] 103 mmol/L Normal 98-107 [facility] Comment on above: Performed By: #### B MP, CBC #### [address] CO2 [Moles/Vol] 34.1 mmol/L High 21.0-31.0 [facility] Comment on above: Performed By: #### B MP, CBC #### [address] Creatinine [Mass/Vol] 1.85 mg/dL High 0.70-1.30 [facility] Comment on above: Performed By: #### B MP, CBC #### [address] Creatinine Clr Calc Pharmacy 33.98 Normal [facility] Comment on above: Result Comment: PERF ORMED BY: [place] [address] PATHOLOGIST CONSOLIDATION ACCOUNTANT OSCAR ESCOBAR M.D. Performed By: #### B MP, CBC #### [address] Estimated GFR 36.821 mL/Min Normal [facility] Comment on above: Performed By: #### B MP, CBC #### [address] Glucose [Mass/Vol] 48 mg/dL Off scale low 70-100 [facility] Comment on above: Result [...] Performed By: #### B MP, CBC #### [address] Potassium [Moles/Vol] 3.3 mmol/L Low 3.5-5.1 [facility] Comment on above: Performed By: #### B MP, CBC #### [address] Sodium [Moles/Vol] 143 mmol/L Normal 136-145 [facility] Comment on above: Performed By: #### B MP, CBC #### [address] Urea nitrogen [Mass/Vol] 75 mg/dL High 7-25 [facility] Comment on above: Performed By: #### B MP, CBC #### [address] Complete Blood Count Auto Di ffon 05-12-2024 Basophils (Bld) [#/Vol] 0.0 10*3/uL Normal 0.0-0.2 [facility] Comment on above: Result Comment: PERF ORMED BY: [place] [address] PATHOLOGIST CONSOLIDATION ACCOUNTANT OSCAR ESCOBAR M.D. Performed By: #### B MP, CBC #### [address] Basophils/100 WBC (Bld) 0.6 % Normal . [facility] Comment on above: Performed By: #### B MP, CBC #### [address] Eosinophils (Bld) [#/Vol] 0.3 10*3/uL Normal 0.0-0.45 [facility] Comment on above: Performed By: #### B MP, CBC #### [address] Eosinophils/100 WBC (Bld) 4.5 % Normal . [facility] Comment on above: Performed By: #### B MP, CBC #### [address] Erythrocyte distribution width (RBC) [Ratio] 16.7 % High 12.0-14.8 [facility] Comment on above: Performed By: #### B MP, CBC #### [address] [place] [address] [place] Hematocrit (Bld) [Volume fraction] 26.9 % Low 38.8-50.0 [facility] Comment on above: Performed By: #### B MP, CBC #### [address] Hemoglobin (Bld) [Mass/Vol] 9.1 g/dL Low 13.0-17.0 [facility] Comment on above: Performed By: #### B MP, CBC #### [address] Lymphocytes (Bld) [#/Vol] 1.0 10*3/uL Normal 1.00-4.8 [facility] Comment on above: Performed By: #### B MP, CBC #### [address] Lymphocytes/100 WBC (Bld) 16.4 % Normal . [facility] Comment on above: Performed By: #### B MP, CBC #### [address] MCH (RBC) [Entitic mass] 31.8 pg Normal 27.5-35.2 [facility] Comment on above: Performed By: #### B MP, CBC #### [address] MCV (RBC) [Entitic vol] 93.9 fL Normal 83.5-101 [facility] Comment on above: Performed By: #### B MP, CBC #### [address] Mean Corpuscular HGB Conc 33.8 g/dL Normal 32.5-35.6 [facility] Comment on above: Performed By: #### B MP, CBC #### [address] Monocytes (Bld) [#/Vol] 0.4 10*3/uL Normal 0.0-0.8 [facility] Comment on above: Performed By: #### B MP, CBC #### [place] [address] Monocytes/100 WBC (Bld) 6.8 % Normal . [facility] Comment on above: Performed By: #### B MP, CBC #### [address] Neutrophils (Bld) [#/Vol] 4.3 10*3/uL Normal 1.8-7.7 [facility] Comment on above: Performed By: #### B MP, CBC #### [address] Neutrophils/100 WBC (Bld) 71.7 % Normal . [facility] Comment on above: Performed By: #### B MP, CBC #### [address] NRBC% 0.1 /100{WBC} Normal 0-0.5 [facility] Comment on above: Performed By: #### B MP, CBC #### [address] Platelet mean volume (Bld) [Entitic vol] 6.8 fL Normal 6.6-10.1 [facility] Comment on above: Performed By: #### B MP, CBC #### [address] Platelets (Bld) [#/Vol] 115 10*3/uL Low 150-450 [facility] Comment on above: Performed By: #### B MP, CBC #### [address] RBC (Bld) [#/Vol] 2.87 10*6/uL Low 3.90-5.60 [facility] Comment on above: Performed By: #### B MP, CBC #### [address] WBC (Bld) [#/Vol] 6.1 10*3/uL Normal 4.1-10.5 [facility] Comment on above: Performed By: #### B MP, CBC #### [address] Glucose Poct Glucometerson 0 05-12-2024 Glucose [Mass/Vol] 383 mg/dL Normal [facility] Comment on above: Result Comment: [place] om Glucose Reference Range is dependent on time and content of last meal. Glucose of more than 200 mg/dL in a nonstressed, ambulatory subject supports the diagnosis of Diabetes Mellitus. PERFORMED BY: [address] [place] [address] PATHOLOGIST CONSOLIDATION ACCOUNTANT OSCAR ESCOBAR M.D. Performed By: #### B MP, CBC #### [facility] [address] [place] [address] [place] Glucose [Mass/Vol] 287 mg/dL Normal [facility] Comment on above: Result Comment: [place] om Glucose Reference Range is dependent on time and content of last meal. Glucose of more than 200 mg/dL in a nonstressed, ambulatory subject supports the diagnosis of Diabetes Mellitus. PERFORMED BY: [address] [place] [address] PATHOLOGIST CONSOLIDATION ACCOUNTANT OSCAR ESCOBAR M.D. Performed By: #### B MP, CBC #### [address] Glucose [Mass/Vol] 214 mg/dL Normal [facility] Comment on above: Result Comment: [place] om Glucose Reference Range is dependent on time and content of last meal. Glucose of more than 200 mg/dL in a nonstressed, ambulatory subject supports the diagnosis of Diabetes Mellitus. PERFORMED BY: [address] [place] [address] PATHOLOGIST CONSOLIDATION ACCOUNTANT OSCAR ESCOBAR M.D. Performed By: #### B MP, CBC #### [facility] [address] [place] [address] [place] Glucose [Mass/Vol] 91 mg/dL Normal [facility] Comment on above: Result Comment: [place] om Glucose Reference Range is dependent on time and content of last meal. Glucose of more than 200 mg/dL in a nonstressed, ambulatory subject supports the diagnosis of Diabetes Mellitus. PERFORMED BY: [place] [address] PATHOLOGIST CONSOLIDATION ACCOUNTANT OSCAR ESCOBAR M.D. Performed By: #### B MP, CBC #### [address] Glucose [Mass/Vol] 63 mg/dL Normal [facility] Comment on above: Result Comment: [place] Glucose Reference Range is dependent on time and content of last meal. Glucose of more than 200 mg/dL in a nonstressed, ambulatory subject supports the diagnosis of Diabetes Mellitus. PERFORMED BY: [place] [address] PATHOLOGIST CONSOLIDATION ACCOUNTANT OSCAR ESCOBAR M.D. Performed By: #### B SARA, CBC #### [address] Commemt1 Glu2: Cleaned Meter Normal [facility] Comment on above: Result Comment: PERF ORMED BY: [place] [address] PATHOLOGIST CONSOLIDATION ACCOUNTANT OSCAR ESCOBAR M.D. Performed By: #### B SARA, CBC #### [address] Glucose [Mass/Vol] 93 mg/dL Normal [facility] Comment on above: Result Comment: [place] Glucose Reference Range is dependent on time and content of last meal. Glucose of more than 200 mg/dL in a nonstressed, ambulatory subject supports the diagnosis of Diabetes Mellitus. Performed By: #### B MP, CBC #### [address] No Panel InformationOrdered By: Alexa Corona on 05-12-2024 Bedside Glucose Comment Glu2: cleaned meter [facility] X-ray reportOrdered By: Simone Chakraborty on 05-12-2024 Study report [facility] [place] [address] [place] [address] XRay Report Signed Patient: Leighton Arciniega MR#: [id number] : 1945 Acct:[id number] Age/Sex: 78 / M ADM Date: 5 Loc: Room: [address] [place] [address] Type: ADM IN Attending Dr: Alexa Corona [...] Benton Chakraborty M.D.05/12/2024 9:06 AM Dictation Location: [place] [address] Transcribed By: [facility] 05/12/24905 Dictated By: Benton Chakraborty DO 05/12/24903 Signed By: 05/12/24 09 [facility] XR chest 1V portableon 05-12 XR chest 1V portable [facility] [place] [address] XRay Report Signed Patient: Leighton Arciniega MR#: [id number] : 1945 Acct:[id number] Age/Sex: 78 / M ADM Date: 05/09/24 Loc: Room: [address] [place] [address] Type: ADM IN Attending Dr: Alexa oCrona MD Copies to: Alexa Corona MD Ordering [...] Benton Chakraborty M.D.05/12/2024 9:06 AM Dictation Location: [facility]--16 Transcribed By: [facility] 05/12/24905 Dictated By: Benton Chakraborty DO 05/12/24903 Signed By: 05/12/24905 Normal [facility] Basic Metabolic Panelon 04-23 Anion gap [Moles/Vol] 11.5 mmol/L Normal 6.0-15.0 Th e [facility] Comment on above: Performed By: #### B MP, CBC #### [address] Calcium [Mass/Vol] 9.2 mg/dL Normal 8.6-10.3 [facility] Comment on above: Performed By: #### B MP, CBC #### [address] Chloride [Moles/Vol] 101 mmol/L Normal 98-107 [facility] Comment on above: Performed By: #### B MP, CBC #### [address] CO2 [Moles/Vol] 32.9 mmol/L High 21.0-31.0 [facility] Comment on above: Performed By: #### B MP, CBC #### [place] [address] [place] Creatinine [Mass/Vol] 2.31 mg/dL High 0.70-1.30 [facility] Comment on above: Performed By: #### B MP, CBC #### [place] [address] [place] Creatinine Clr Calc Pharmacy 29.40 Normal [facility] Comment on above: Result Comment: PERF ORMED BY: [place] [address] PATHOLOGIST CONSOLIDATION ACCOUNTANT OSCAR ESCOBAR M.D. Performed By: #### B MP, CBC #### [address] Estimated GFR 28.208 mL/Min Normal [facility] Comment on above: Performed By: #### B MP, CBC #### [address] Glucose [Mass/Vol] 57 mg/dL Low 70-100 [facility] Comment on above: Result Comment: [facility] Glucose Reference Range is dependent on time and content of last meal. Glucose of more than 200 mg/dL in a nonstressed, ambulatory subject supports the diagnosis of Diabetes Mellitus. ADA recommended reference range Performed By: #### B MP, CBC #### [address] Potassium [Moles/Vol] 3.4 mmol/L Low 3.5-5.1 [facility] Comment on above: Performed By: #### B MP, CBC #### [address] Sodium [Moles/Vol] 142 mmol/L Significant change down 136-145 [facility] Comment on above: Performed By: #### B MP, CBC #### [address] Urea nitrogen [Mass/Vol] 87 mg/dL High 7-25 [facility] Comment on above: Performed By: #### B MP, CBC #### [address] Complete Blood Count Auto Di ffon 05-11-2024 Basophils (Bld) [#/Vol] 0.0 10*3/uL Normal 0.0-0.2 [facility] Comment on above: Result Comment: PERF ORMED BY: [place] [address] PATHOLOGIST CONSOLIDATION ACCOUNTANT OSCAR ESCOBAR M.D. Performed By: #### B MP, CBC #### [address] [address] [place] Basophils/100 WBC (Bld) 0.1 % Normal . [facility] Comment on above: Performed By: #### B MP, CBC #### [address] Eosinophils (Bld) [#/Vol] 0.2 10*3/uL Normal 0.0-0.45 [facility] Comment on above: Performed By: #### B MP, CBC #### [address] Eosinophils/100 WBC (Bld) 3.3 % Normal . [facility] Comment on above: Performed By: #### B MP, CBC #### [address] Erythrocyte distribution width (RBC) [Ratio] 16.7 % High 12.0-14.8 [facility] Comment on above: Performed By: #### B MP, CBC #### [address] Hematocrit (Bld) [Volume fraction] 29.6 % Low 38.8-50.0 [facility] Comment on above: Performed By: #### B MP, CBC #### [address] Hemoglobin (Bld) [Mass/Vol] 10.1 g/dL Low 13.0-17.0 [facility] Comment on above: Performed By: #### B MP, CBC #### [address] Lymphocytes (Bld) [#/Vol] 0.8 10*3/uL Low 1.00-4.8 [facility] Comment on above: Performed By: #### B MP, CBC #### [address] Lymphocytes/100 WBC (Bld) 11.7 % Normal . [facility] Comment on above: Performed By: #### B MP, CBC #### [address] MCH (RBC) [Entitic mass] 32.2 pg Normal 27.5-35.2 [facility] Comment on above: Performed By: #### B MP, CBC #### [address] MCV (RBC) [Entitic vol] 94.5 fL Normal 83.5-101 [facility] Comment on above: Performed By: #### B MP, CBC #### [address] Mean Corpuscular HGB Conc 34.1 g/dL Normal 32.5-35.6 [facility] Comment on above: Performed By: #### B MP, CBC #### [address] Monocytes (Bld) [#/Vol] 0.5 10*3/uL Normal 0.0-0.8 [facility] Comment on above: Performed By: #### B MP, CBC #### [address] Monocytes/100 WBC (Bld) 6.8 % Normal . [facility] Comment on above: Performed By: #### B MP, CBC #### [address] Neutrophils (Bld) [#/Vol] 5.2 10*3/uL Normal 1.8-7.7 [facility] Comment on above: Performed By: #### B MP, CBC #### [address] Neutrophils/100 WBC (Bld) 78.1 % Normal . [facility] Comment on above: Performed By: #### B MP, CBC #### [address] NRBC% 0.1 /100{WBC} Normal 0-0.5 [facility] Comment on above: Performed By: #### B MP, CBC #### [address] Platelet mean volume (Bld) [Entitic vol] 6.5 fL Low 6.6-10.1 [facility] Comment on above: Performed By: #### B MP, CBC #### [facility] [address] Platelets (Bld) [#/Vol] 129 10*3/uL Low 150-450 [facility] Comment on above: Performed By: #### B MP, CBC #### [address] RBC (Bld) [#/Vol] 3.13 10*6/uL Low 3.90-5.60 [facility] Comment on above: Performed By: #### B MP, CBC #### [facility] [address] WBC (Bld) [#/Vol] 6.6 10*3/uL Normal 4.1-10.5 [facility] Comment on above: Performed By: #### B MP, CBC #### [address] [facility] echo transthoracicon E[facility] echo transthoracic [facility] [place] [address] [place] [address] Echocardiogram Signed Patient: Leighton Arciniega MR#: [id number] : 1945 Acct:[id number] Age/Sex: 78 / M ADM Date: 05/09/24 Loc: Room: [address] [place] [address] Type: ADM IN Attending Dr: Alexa Corona [...] CHF, 2024 EF was 50%, 2024 EF [id number]% (both echos done at [place]), HTN, DM, DVT, SSS, Pacemaker, A-Fib., CKD, COPD, VIRGILIO, [place] Interpretation Summary Ejection Fraction = 20-25%. The [...] Performed (more content not included)... Normal [facility] Glucose Poct Glucometerson 0 05-11-2024 Commemt1 Glu2: Cleaned Meter Normal [facility] Comment on above: Result Comment: PERF ORMED BY: [facility] [address] [place] [address] PATHOLOGIST CONSOLIDATION ACCOUNTANT OSCAR ESCOBAR M.D. Performed By: #### G LULS #### Point of Care testing , Glucose [Mass/Vol] 218 mg/dL Normal [facility] Comment on above: Result Comment: [place] Glucose Reference Range is dependent on time and content of last meal. Glucose of more than 200 mg/dL in a nonstressed, ambulatory subject supports the diagnosis of Diabetes Mellitus. Performed By: #### G LULS #### Point of Care testing , Glucose [Mass/Vol] 187 mg/dL Normal [facility] Comment on above: Result Comment: [place] om Glucose Reference Range is dependent on time and content of last meal. Glucose of more than 200 mg/dL in a nonstressed, ambulatory subject supports the diagnosis of Diabetes Mellitus. PERFORMED BY: [place] [address] PATHOLOGIST CONSOLIDATION ACCOUNTANT OSCAR ESCOBAR M.D. Performed By: #### B MP, CBC #### [address] Glucose [Mass/Vol] 333 mg/dL Normal [facility] Comment on above: Result Comment: [place] om Glucose Reference Range is dependent on time and content of last meal. Glucose of more than 200 mg/dL in a nonstressed, ambulatory subject supports the diagnosis of Diabetes Mellitus. PERFORMED BY: [place] [address] PATHOLOGIST CONSOLIDATION ACCOUNTANT OSCAR ESCOBAR M.D. Performed By: #### B MP, CBC #### [place] [address] [place] Commemt1 Glu2: Cleaned Meter Normal [facility] Comment on above: Result Comment: PERF ORMED BY: [place] [address] PATHOLOGIST CONSOLIDATION ACCOUNTANT OSCAR ESCOBAR M.D. Performed By: #### B MP, CBC #### [place] [address] [place] Glucose [Mass/Vol] 168 mg/dL Normal [facility] Comment on above: Result Comment: [place] Glucose Reference Range is dependent on time and content of last meal. Glucose of more than 200 mg/dL in a nonstressed, ambulatory subject supports the diagnosis of Diabetes Mellitus. Performed By: #### B MP, CBC #### [place] [address] [place] Glucose [Mass/Vol] 69 mg/dL Normal [facility] Comment on above: Result Comment: [place] Glucose Reference Range is dependent on time and content of last meal. Glucose of more than 200 mg/dL in a nonstressed, ambulatory subject supports the diagnosis of Diabetes Mellitus. PERFORMED BY: [place] [address] PATHOLOGIST CONSOLIDATION ACCOUNTANT OSCAR ESCOBAR M.D. Performed By: #### B MP, CBC #### [address] Commemt1 Glu2: Cleaned Meter Normal [facility] Comment on above: Result Comment: PERF ORMED BY: [place] [address] PATHOLOGIST CONSOLIDATION ACCOUNTANT OSCAR ESCOBAR M.D. Performed By: #### B MP, CBC #### [address] Glucose [Mass/Vol] 80 mg/dL Normal [facility] Comment on above: Result Comment: [facility] Glucose Reference Range is dependent on time and content of last meal. Glucose of more than 200 mg/dL in a nonstressed, ambulatory subject supports the diagnosis of Diabetes Mellitus. Performed By: #### B MP, CBC #### [address] Basic Metabolic Panelon 04-22 Anion gap [Moles/Vol] 12.6 mmol/L Normal 6.0-15.0 Th e [facility] Comment on above: Performed By: #### B MP, LIPID, CBC #### [place] [address] [place] Calcium [Mass/Vol] 8.9 mg/dL Normal 8.6-10.3 [facility] Comment on above: Performed By: #### B MP, LIPID, CBC #### [place] [address] [place] Chloride [Moles/Vol] 101 mmol/L Normal 98-107 [facility] Comment on above: Performed By: #### B MP, LIPID, CBC #### [place] [address] [place] CO2 [Moles/Vol] 26.6 mmol/L Normal 21.0-31.0 [facility] Comment on above: Performed By: #### B MP, LIPID, CBC #### [address] Creatinine [Mass/Vol] 2.26 mg/dL High 0.70-1.30 [facility] Comment on above: Performed By: #### B MP, LIPID, CBC #### [place] [address] [place] Creatinine Clr Calc Pharmacy 31.85 Normal [facility] Comment on above: Performed By: #### B MP, LIPID, CBC #### [address] Estimated GFR 28.958 mL/Min Normal [facility] Comment on above: Performed By: #### B MP, LIPID, CBC #### [address] Glucose [Mass/Vol] 131 mg/dL High 70-100 [facility] Comment on above: Result Comment: [place] Glucose Reference Range is dependent on time and content of last meal. Glucose of more than 200 mg/dL in a nonstressed, ambulatory subject supports the diagnosis of Diabetes Mellitus. ADA recommended reference range Performed By: #### B MP, LIPID, CBC #### [address] Potassium [Moles/Vol] 4.2 mmol/L Normal 3.5-5.1 [facility] Comment on above: Performed By: #### B MP, LIPID, CBC #### [place] [address] [place] Sodium [Moles/Vol] 136 mmol/L Normal 136-145 [facility] Comment on above: Performed By: #### B MP, LIPID, CBC #### [address] Urea nitrogen [Mass/Vol] 85 mg/dL High 7-25 [facility] Comment on above: Performed By: #### B MP, LIPID, CBC #### [place] [address] [place] Cholesterol [Mass/volume] in Serum or PlasmaOrdered By: Alexa Corona on 05-10-2024 Cholesterol [Mass/Vol] Cholesterol [Mass/volume] in Serum or Plasma Low 140-200 [facility] Comment on above: Chol less than 200 m g/dl low riskChol 201-239 mg/dl borderline riskChol 240 mg/dl and greater high risk Cholesterol in HDL [Mass/vol ume] in Serum or PlasmaOrdered By: Alexa Corona on 05-10-2024 Cholesterol in HDL [Mass/Vol] Serum or plasma high density lipoprotein (HDL) cholesterol measurement [facility] Comment on above: HDL CHOL ATP-III CLA SSIFICATION Cardiovascular RiskHDL > or equal to 60 mg/dL LOWHDL < 40 mg/dL HIGH Cholesterol in LDL Calc [Mas s/Vol]Ordered By: Alexa Corona on 05-10-2024 Cholesterol in LDL [Mass/Vol] Cholesterol in LDL [Mass/volume] in Serum or Plasma by calculation 0-100 [facility] Comment on above: LDL ATP III CLASSIFI CATIONLDL less than 100 mg/dL OptimalLDL 100-129 mg/dL Near or above optimalLDL 130-159 mg/dL Borderline highLDL 160-189 mg/dL HighLDL greater than 189 mg/dL Very high Cholesterol in VLDL Calc [Ma ss/Vol]Ordered By: Alexa Corona on 05-10-2024 Cholesterol in VLDL [Mass/Vol] Cholesterol in VLDL [Mass/volume] in Serum or Plasma by calculation [facility] Clostridioides difficile tox in B tcdB gene [Presence] in Stool by TORI with probe deteOrdered By: Alexa Corona on 05-10-2024 C. difficile toxin B tcdB gene TORI+probe Ql (Stl) Clostridioides difficile toxin B tcdB gene [Presence] in Stool by TORI with probe dete Negative [facility] Comment on above: Testing performed by RT-PCR Clostridium Difficileon 04-22 Clostridium Difficile Negative Normal Negative [facility] Comment on above: Order Comment: > or = to 3 loose/watery stools in the last 24 HRS? Y Is patient on promotility agents or tube feeding? N Result Comment: Test ing performed by RT-PCR PERFORMED BY: [place] [address] PATHOLOGIST CONSOLIDATION ACCOUNTANT OSCAR ESCOBAR M.D. Performed By: #### C UU #### [address] Complete Blood Count Auto Di ffon 05-10-2024 Basophils (Bld) [#/Vol] 0.1 10*3/uL Normal 0.0-0.2 [facility] Comment on above: Result Comment: PERF ORMED BY: [place] [address] PATHOLOGIST CONSOLIDATION ACCOUNTANT OSCAR ESCOBAR M.D. Performed By: #### B MP, LIPID, CBC #### [address] Basophils/100 WBC (Bld) 0.7 % Normal . [facility] Comment on above: Performed By: #### B MP, LIPID, CBC #### [address] Eosinophils (Bld) [#/Vol] 0.0 10*3/uL Normal 0.0-0.45 [facility] Comment on above: Performed By: #### B MP, LIPID, CBC #### [address] Eosinophils/100 WBC (Bld) 0.5 % Normal . [facility] Comment on above: Performed By: #### B MP, LIPID, CBC #### [address] Erythrocyte distribution width (RBC) [Ratio] 16.3 % High 12.0-14.8 [facility] Comment on above: Performed By: #### B MP, LIPID, CBC #### [address] Hematocrit (Bld) [Volume fraction] 27.5 % Low 38.8-50.0 [facility] Comment on above: Performed By: #### B MP, LIPID, CBC #### [address] Hemoglobin (Bld) [Mass/Vol] 9.4 g/dL Low 13.0-17.0 [facility] Comment on above: Performed By: #### B MP, LIPID, CBC #### [address] Lymphocytes (Bld) [#/Vol] 0.6 10*3/uL Low 1.00-4.8 [facility] Comment on above: Performed By: #### B MP, LIPID, CBC #### [address] Lymphocytes/100 WBC (Bld) 6.2 % Normal . [facility] Comment on above: Performed By: #### B MP, LIPID, CBC #### [address] MCH (RBC) [Entitic mass] 32.5 pg Normal 27.5-35.2 [facility] Comment on above: Performed By: #### B MP, LIPID, CBC #### [address] MCV (RBC) [Entitic vol] 94.9 fL Normal 83.5-101 [facility] Comment on above: Performed By: #### B MP, LIPID, CBC #### [address] Mean Corpuscular HGB Conc 34.2 g/dL Normal 32.5-35.6 [facility] Comment on above: Performed By: #### B MP, LIPID, CBC #### [address] Monocytes (Bld) [#/Vol] 0.3 10*3/uL Normal 0.0-0.8 [facility] Comment on above: Performed By: #### B MP, LIPID, CBC #### [address] Monocytes/100 WBC (Bld) 3.3 % Normal . [facility] Comment on above: Performed By: #### B MP, LIPID, CBC #### [place] [address] [place] Neutrophils (Bld) [#/Vol] 8.5 10*3/uL High 1.8-7.7 [facility] Comment on above: Performed By: #### B MP, LIPID, CBC #### [address] Neutrophils/100 WBC (Bld) 89.3 % Normal . [facility] Comment on above: Performed By: #### B MP, LIPID, CBC #### [address] NRBC% 0.0 /100{WBC} Normal 0-0.5 [facility] Comment on above: Performed By: #### B MP, LIPID, CBC #### [address] Platelet mean volume (Bld) [Entitic vol] 6.8 fL Normal 6.6-10.1 [facility] Comment on above: Performed By: #### B MP, LIPID, CBC #### [place] [address] [place] Platelets (Bld) [#/Vol] 124 10*3/uL Low 150-450 [facility] Comment on above: Performed By: #### B MP, LIPID, CBC #### [address] RBC (Bld) [#/Vol] 2.90 10*6/uL Low 3.90-5.60 [facility] Comment on above: Performed By: #### B MP, LIPID, CBC #### [place] [address] [place] WBC (Bld) [#/Vol] 9.5 10*3/uL Normal 4.1-10.5 [facility] Comment on above: Performed By: #### B MP, LIPID, CBC #### [address] ECG 12 lead ECGon 05-10-2024 ECG 12 lead ECG [facility] [place] [address] [place] [address] Electrocardiograph Report Signed Patient: Leighton Arciniega MR#: [id number] : 1945 Acct:[id number] Age/Sex: 78 / M ADM Date: 05/09/24 Loc: Room: [address] [place] [address] Type: ADM IN Attending Dr: Alexa Corona [...] ms Ventricular-paced rhythm Confirmed by John Nettles ([id number]) on 05/10/2024 3:54:15 PM Referred By: Electronically Signed By: John Nettles Transcribed By: MUS Signed By John Nettles MD 05/10/24 1554 Normal [facility] Glucose Poct Glucometerson 0 05-10-2024 Glucose [Mass/Vol] 150 mg/dL Normal [facility] Comment on above: Result Comment: [facility] Glucose Reference Range is dependent on time and content of last meal. Glucose of more than 200 mg/dL in a nonstressed, ambulatory subject supports the diagnosis of Diabetes Mellitus. PERFORMED BY: [address] [address] PATHOLOGIST CONSOLIDATION ACCOUNTANT OSCAR ESCOBAR M.D. Performed By: #### G LULS #### Point of Care testing , Glucose [Mass/Vol] 106 mg/dL Normal [facility] Comment on above: Result Comment: [facility] Glucose Reference Range is dependent on time and content of last meal. Glucose of more than 200 mg/dL in a nonstressed, ambulatory subject supports the diagnosis of Diabetes Mellitus. PERFORMED BY: [address] [address] PATHOLOGIST CONSOLIDATION ACCOUNTANT OSCAR ESCOBAR M.D. Performed By: #### C UU #### [address] Glucose [Mass/Vol] 187 mg/dL Normal [facility] Comment on above: Result Comment: [place] [facility] Glucose Reference Range is dependent on time and content of last meal. Glucose of more than 200 mg/dL in a nonstressed, ambulatory subject supports the diagnosis of Diabetes Mellitus. PERFORMED BY: [place] [address] PATHOLOGIST CONSOLIDATION ACCOUNTANT OSCAR ESCOBAR M.D. Performed By: #### B MP, CBC #### [address] Glucose [Mass/Vol] 153 mg/dL Normal [facility] Comment on above: Result Comment: [place] om Glucose Reference Range is dependent on time and content of last meal. Glucose of more than 200 mg/dL in a nonstressed, ambulatory subject supports the diagnosis of Diabetes Mellitus. PERFORMED BY: [place] [address] PATHOLOGIST CONSOLIDATION ACCOUNTANT OSCAR ESCOBAR M.D. Performed By: #### B MP, CBC #### [address] Lipid Panelon 05-10-2024 Cholesterol [Mass/Vol] 139 mg/dL Low 140-200 [facility] Comment on above: Result Comment: Chol less than 200 mg/dl low risk Chol 201-239 mg/dl borderline risk Chol 240 mg/dl and greater high risk Performed By: #### B MP, LIPID, CBC #### [address] Cholesterol in HDL [Mass/Vol] 65 mg/dL Normal 23-92 [facility] Comment on above: Result Comment: HDL CHOL ATP-III CLASSIFICATION Cardiovascular Risk HDL > or equal to 60 mg/dL LOW HDL < 40 mg/dL HIGH Performed By: #### B MP, LIPID, CBC #### [address] Cholesterol.total/Chol esterol in HDL [Mass ratio] 2.1 {ratio} Normal <5.0 [facility] Comment on above: Result Comment: PERF ORMED BY: [place] [address] PATHOLOGIST CONSOLIDATION ACCOUNTANT OSCAR ESCOBAR M.D. Performed By: #### B MP, LIPID, CBC #### [address] LDL Cholesterol,Calculated 63 mg/dL Normal 0-100 [facility] Comment on above: Result Comment: LDL ATP III CLASSIFICATION LDL less than 100 mg/dL Optimal LDL 100-129 mg/dL Near or above optimal LDL 130-159 mg/dL Borderline high LDL 160-189 mg/dL High LDL greater than 189 mg/dL Very high Performed By: #### B MP, LIPID, CBC #### [address] Triglyceride w/Reflex 57 mg/dL Normal 0-149 [facility] Comment on above: Result Comment: TRIG ATP III CLASSIFICATION TRIG less than 150 mg/dL Normal TRIG 150-199 mg/dL Borderline high TRIG 200-500 mg/dL High TRIG greater than 500 mg/dL Very high Standard traceable to the Center for Disease Conrtrol and Prevention (CDC) test method. Performed By: #### B MP, LIPID, CBC #### [address] VLDL CHOLESTEROL 11 mg/dL Normal [facility] Comment on above: Performed By: #### B MP, LIPID, CBC #### [address] Serum or plasma total choles terol/high density lipoprotein (HDL) cholesterol mass ratOrdered By: Alexa Corona on 05-10-2024 Cholesterol.total/Chol esterol in HDL [Mass ratio] Serum or plasma total cholesterol/high density lipoprotein (HDL) cholesterol mass rat <5.0 [facility] Triglyceride [Mass/volume] i n Serum or PlasmaOrdered By: Alexa Corona on 05-10-2024 Triglyceride [Mass/Vol] Triglyceride [Mass/volume] in Serum or Plasma 0-149 [facility] Comment on above: TRIG ATP III CLASSIF ICATIONTRIG less than 150 mg/dL NormalTRIG 150-199 mg/dL Borderline highTRIG 200-500 mg/dL High TRIG greater than 500 mg/dL Very highStandard traceable to the Center for Disease Conrtrol and Prevention (CDC) test method. Troponin I High Sensitivityo n 05-10-2024 Troponin I High Sensitivity 47 High 0-20 [facility] Comment on above: Result Comment: The Troponin units of report have been changed to meet the Chest Pain Accreditation requirement, element EC5.M1l2. Troponin units are changed from pg/ml to ng/L. Also, the decimal is removed and results are in whole numbers. PERFORMED BY: [place] [address] PATHOLOGIST CONSOLIDATION ACCOUNTANT OSCAR ESCOBAR M.D. Performed By: #### B SARA, CBC #### [facility] [address] [place] [address] Troponin I High Sensitivity 46 High 0-20 [facility] Comment on above: Result Comment: The Troponin units of report have been changed to meet the Chest Pain Accreditation requirement, element EC5.M1l2. Troponin units are changed from pg/ml to ng/L. Also, the decimal is removed and results are in whole numbers. PERFORMED BY: [place] [phone] PATHOLOGIST CONSOLIDATION ACCOUNTANT OSCAR ESCOBAR M.D. Performed By: #### B SARA, CBC #### [address] Troponin I.cardiac [Mass/vol ume] in Serum or Plasma by Detection limit <= 0.01 ng/Ordered By: Alexa Corona on 05-10-2024 Troponin I.cardiac DL <= 0.01 ng/mL [Mass/Vol] Troponin I.cardiac [Mass/volume] in Serum or Plasma by Detection limit <= 0.01 ng/ High 0-20 [facility] Comment on above: The Troponin units o f report have been changed to meet the Chest Pain Accreditation requirement, element EC5.M1l2. Troponin units are changed from pg/ml to ng/L. Also, the decimal is removed and results are in whole numbers. B-Type Natriuretic Peptideon 05-09-2024 Natriuretic peptide B (Bld) [Mass/Vol] 1940.0 pg/mL High 5-100 [facility] Comment on above: Order Comment: Comme nt add Result Comment: PERF ORMED BY: [place] [address] PATHOLOGIST CONSOLIDATION ACCOUNTANT OSCAR ESCOBAR M.D. Performed By: #### B MP, CBC #### [address] ECG 12 lead ECGon 05-09-2024 ECG 12 lead ECG [facility] Main [place] [address] [place] [address] Electrocardiograph Report Signed Patient: Leighton Arciniega MR#: [id number] : 1945 Acct:[id number] Age/Sex: 78 / M ADM Date: 05/09/24 Loc: Room: [address] [place] [address] Type: ADM IN Attending Dr: Alexa Corona [...] ms Ventricular-paced rhythm Confirmed by John Nettles ([id number]) on 05/10/2024 3:51:11 PM Referred By: Electronically Signed By: John Nettles Transcribed By: MUS Signed By John Nettles MD 05/10/24 1551 Normal [facility] Glucose Poct Glucometerson 0 05-09-2024 Glucose [Mass/Vol] 108 mg/dL Normal [facility] Comment on above: Result Comment: [place] om Glucose Reference Range is dependent on time and content of last meal. Glucose of more than 200 mg/dL in a nonstressed, ambulatory subject supports the diagnosis of Diabetes Mellitus. PERFORMED BY: [place] [address] PATHOLOGIST CONSOLIDATION ACCOUNTANT OSCAR ESCOBAR M.D. Performed By: #### G LULS #### Point of Care testing , Magnesiumon 05-09-2024 Magnesium [Mass/Vol] 2.1 mg/dL Normal 1.9-2.7 [facility] Comment on above: Order Comment: Comme nt add Result Comment: PERF ORMED BY: [place] [address] PATHOLOGIST CONSOLIDATION ACCOUNTANT OSCAR ESCOBAR M.D. Performed By: #### C UU #### [address] Magnesium [Mass/volume] in S chelo or PlasmaOrdered By: Alexa Corona on 05-09-2024 Magnesium [Mass/Vol] Magnesium [Mass/volume] in Serum or Plasma 1.9-2.7 [facility] Natriuretic peptide B [Mass/ Vol]Ordered By: Alexa Corona on 05-09-2024 Natriuretic peptide B (Bld) [Mass/Vol] BNP ser/plas High 5-100 [facility] Troponin I High Sensitivityo n 05-09-2024 Troponin I High Sensitivity 42 High 0-20 [facility] Comment on above: Result Comment: The Troponin units of report have been changed to meet the Chest Pain Accreditation requirement, element EC5.M1l2. Troponin units are changed from pg/ml to ng/L. Also, the decimal is removed and results are in whole numbers. PERFORMED BY: [place] [address] PATHOLOGIST CONSOLIDATION ACCOUNTANT OSCRA ESCOBAR M.D. Performed By: #### C UU #### [address] X-ray reportOrdered By: Noe Pitts on 05-09-2024 Study report [facility] Main [place] [address] [place] [address] XRay Report Signed Patient: Leighton Arciniega MR#: [id number] : 1945 Acct:[id number] Age/Sex: 78 / M ADM Date: 5 Loc: 4P Room: [address] [place] [address] Type: ADM IN Attending Dr: Devan Drake [...] Noe Pitts M.D.05/09/2024 10:26 PM Dictation Location: [place] [address] Transcribed By: [facility] 05/09/242225 Dictated By: Noe Pitts II, MD 05/09/242223 Signed By: 05/09/242225 [facility] Work Phone: XR chest 2V*on 05-09-2024 XR chest 2V* [facility] Main [place] [address] [place] [address] XRay Report Signed Patient: Leighton Arciniega MR#: [id number] : 1945 Acct:[id number] Age/Sex: 78 / M ADM Date: 05/09/24 Loc: 4 Room: [address] [place] [address] Type: ADM IN Attending Dr: Devan Drake [...] Noe Pitts M.D.05/09/2024 10:26 PM Dictation Location: [facility]- Transcribed By: [facility] 05/09/242225 Dictated By: Noe Pitts II, MD 05/09/242223 Signed By: 05/09/242225 Normal [facility] Ambulatory Visit Summaryon 0 04-26-2024 [...] Mica Car MD Where: [facility] [address] [place] [address] 2024 11:00 AM EDT With: Where: [facility] You Need to Schedule the Following Appointments Follow Up with Josep SANDHU, Mica Johns, URL, URO When: Where: Medications What How Much When Instructions New finasteride (finasteride 5 mg Tab) 1 Tablets By Mouth Every day Refills: 11 Pickup at [facility] #[id number] Unchanged terazosin (terazosin 10 mg Cap) 1 [...] Duration: 3 (more content not included)... Normal [facility] Urology Office/Clinic Noteon 04-26-2024 Urology Office/Clinic [...] unspecified) Pt states he was admitted at [facility] x 4 days due to PNA, Gomez removed and discharged 04/08/24. Pt states he presented back to [facility] ER due to UR. Gomez placed, [...] scan, ~ 80 g) S/p Rezum by [facility] 02/14/24 - 9 treatments, Rt side [...] further bleeding since then. Pt went to [place] ER 02/26/24 d/t persistent dysuria. Admitted for 3 days. Received IV abx. Dc'd on Cipro x 10d and Levsin. Urine and blood cx both came back neg. [facility] ER 04/08/24 U.Cx was negative. Pt had an infection at the time of him being admitted in the hospital, is currently on abx. Advised pt to continue to abx that was given at the time of the ER visit. Started on Levaquin 500mg qd x3 wks 04/12/24. -Complete ATB course -See #3 5. Anticoagulated (Z79.01: global regulatory lead (current) use of anticoagulants) Eliquis. Elevated risk [...] DM (diabetes (more content not included)... Normal [facility] Comment on above: Result Comment: Elec [...] AM EST With: Where: [facility] [place] [address] [place] [address] [place] [address]- Wednesday 1:00 PM EST With: Mica Car MD Where: [facility] [address] [address] 2024 11:00 AM EDT With: Where: [facility] You Need to Schedule the Following Appointments Follow Up with Josep SANDHU, Mica Johns, URL, URO When: In 1 month Comments: w/PVR Where: Medications What How Much When Instructions New levofloxacin (Levaquin 500 mg Tab) 1 Tablets By Mouth Every 24 hours Duration: 3 Weeks Pickup at [facility] #[id number] Unchanged acetaminophen (Tylenol Extra Strength 500 mg [...] 3 time (more content not included)... Normal [facility] Urology Office/Clinic Noteon 04-12-2024 Urology Office/Clinic Note Urology Office/Clinic Note Chief Complaint 1 mth f/u HPI Staff 78yr old male pt here for 1mo f/u with PVR. S/p Cystoscopy, TRUS 01/27/2024, Rezume done on 02/14/24 w/ Dr. Car. Previous Dx: uti, BPH with urinary obstruction, anticoagulated *terazosin 10 mg qd, sildenafil 100mg PRN pt has Gomez. Pt states he was in [facility] for 4 days for pneumonia, Wednesday he was released and Gomez was taken out. Pt then states he could not urinate so he went back to [facility] and they placed the Gomez. History [...] not urinate so he went back to [facility] and they placed the Gomez, PVR [...] further bleeding since then. Pt went to [place] [facility] 02/26/24 d/t persistent dysuria. Admitted for 3 days. Received IV abx. Dc'd on Cipro x 10d and Levsin. Urine and blood cx both came back neg. [facility] ER 04/08/24 U.Cx was negative. Pt [...] be stoppe (more content not included)... Normal [facility] Comment on above: Result Comment: Elec tronically Signed By: Mica aCr MD\.br\Date and Time Signed: 04/12/24 12:07 EST\.br\Electronically Co-Signed By: Kavita Mukherjee\.br\Date and Time Co-Signed: 04/12/24 11:48 EST Urine Cultureon 03-28-2024 Bacteria identified Cx Nom (U) No Growth 2 Days PERFORMED BY: [place] [address] PATHOLOGIST CONSOLIDATION ACCOUNTANT OSCAR ESCOBAR M.D. Normal [facility] Comment on above: Performed By: #### C UU #### [address] Urine cultureOrdered By: Derek Vasquez on 03-28-2024 Bacteria identified Cx Nom (U) Urine culture [facility] C Urineon 03-26-2024 Bacteria identified Cx Nom [...] Locations R1: This test was performed at: [email or web address], [address] [place] [address], [address]- , , [facility] Comment on above: Performed By: #### 2 [id number] #### [facility] [address] [place] [address] Main OR Preoperative Recordo n 03-20-2024 Main OR Preoperative Record Main OR Preoperative Record Holding Area Document Type FTURO Summary Primary Physician: Mica Car MD Finalized Date/Time: 03/20/24 16:29:34 Pt. Name: LEIGHTON ARCINIEGA /Sex: 1945 Male Med Rec #: [id number] Physician: Mica Car MD Financial #: [id number] Pt. Type: O Room/Bed: / Admit/Disch: 12/27/23 [...] Complaints of Pain: No Skin Integrity Intact, [place], Warm, & Dry Vitals - EU Blood Pressure 122/75 Pulse 81 bpm Respirations 18 br/min SPO2 96 % Additional None RN Reviewed Yes Specimens Collected Last Modified By: Ankita Gray RN 12/27/23 11:25:48 Finalized By: MICHELLE Marks RN, Ruthann Document Signatures Signed By: Latha David LPN 12/27/23 11:01 Latha David LPN 12/27/23 11:02 MICHELLE Marks RN, Ruthann 03/20/24 16:29 Normal [facility] Urine Cultureon 03-11-2024 Bacteria identified Cx Nom (U) ORGANISM: Prudence glabrata (O:CANGLA) [place] Count 75,000 PERFORMED BY: [place] [address] PATHOLOGIST CONSOLIDATION ACCOUNTANT OSCAR ESCOBAR M.D. Normal [facility] Comment on above: Performed By: #### C UU #### [address] Urine cultureOrdered By: Derek Vasquez on 03-11-2024 Bacteria identified Cx Nom (U) Abnormal [facility] Urology Office/Clinic Noteon 03-02-2024 Urology Office/Clinic Note [...] that he had 3 day stay at [facility] on 02/26/24 for severe UTI & [...] further bleeding since then. Pt went to [place] [facility] 02/26/24 d/t persistent dysuria. Admitted for [...] 124ml Told him to continue Alfuzosin. Ordered: [id number] Measure Post Void residual urine and/or bladder [...] Urnls Dip Stick Auto w/o Microscopy POC 75639 3. Anticoagulated (Z79.01: global regulatory lead (current) use of anticoagulants) on Eliquis. Follow-up [...] Hypercholesteremia Inco (more content not included)... Normal [facility] Comment on above: Result Comment: Elec tronically Signed By: NATA TA PA-C.br\Date and Time Signed: 03/02/24 17:13 EST\.br\Electronically Co-Signed By: Martir Shea\Date and Time Co-Signed: 03/02/24 13:38 EST ECG 12 Leadon 03-01-2024 AV paced rhythm [facility] Work Phone: URINE CULTUREon 02-19-2024 Bacteria identified Cx Nom (U) CULTURE RESULTS 10-50,000 ORGANISMS/mL NORMAL UROGENITAL ELIN Normal [facility] Comment on above: Performed By: #### 6 30-4 #### [facility] ([id number]) [address] [place] [address], [address] [place] [address] URN MACROSCOPIC NURon 2023 BILIRUBIN LETHA Negative Normal NEG [facility] Comment on above: Performed By: #### N UM #### [facility] ([id number]) [address] [place] [address] BLOOD/HGB LETHA Large Abnormal NEG [facility] Comment on above: Performed By: #### N UM #### [facility] ([id number]) [address] [place] [address] GLUCOSE LETHA >=1000 Abnormal NEG [facility] Comment on above: Performed By: #### N UM #### [facility] ([id number]) [address] [place] [address] KETONES LETHA Negative Normal NEG [facility] Comment on above: Performed By: #### N UM #### [facility] ([id number]) [address] [place] [address] LEUKOCYTE ESTERASE LETHA Small Abnormal NEG Pr [facility] Comment on above: Performed By: #### N UM #### [facility] ([id number]) [address] [place] [address] NITRITE LETHA Negative Normal NEG [facility] Comment on above: Performed By: #### N UM #### [facility] ([id number]) [address] [place] [address] PH LETHA 6.0 Normal 5.0-8.5 [facility] Comment on above: Performed By: #### N UM #### [facility] ([id number]) [address] [place] [address] PROTEIN LETHA 100 mg/dL Abnormal NEG [facility] Comment on above: Performed By: #### N UM #### [facility] ([id number]) [address] [place] [address] SPECIFIC GRAVITY LETHA 1.015 Normal 1.003-1.035 [facility] Comment on above: Performed By: #### N UM #### [facility] ([id number]) [address] [place] [address] UROBILINOGEN LETHA 0.2 eu/dL Normal <1.1 [facility] Comment on above: Performed By: #### N UM #### [facility] ([id number]) [address] [place] [address] Inpatient Patient Summaryon 02-14-2024 Inpatient Patient Summary Inpatient Patient Summary [place] [id number] Clinical Summary Person Information Name: LEIGHTON ARCINIEGA Age: 78 Years : 1945 Sex: Male PCP: Lori Medina MD Marital Status: Race: White Ethnicity: Non- or Language: Austrian Visit Id: Visit Reason: BPH WITH URINARY OBSTRUCTION Speciality: Acuity: Enc Type: Outpatient Med Service: Surgery Arrival: 02/14/2024 09:35:51 Discharge: Dispo Type: Address: [facility] LINDEN TONEY [address] [place] [address] [id number] Provider Notes: Diagnosis: BPH with obstruction/lower urinary [...] day as needed for pain. acetaminophen-hydroc odone (Kunia 325 mg-5 mg oral tablet) 1 Tablets [...] EU - Rezum Discharge Instructions (CUSTOM) Normal [facility] Main [place] Intraoperative Recor don 02-14-2024 Main OR Intraoperative Record Main OR Intraoperative Record IntraOp Document Type FTURO Summary Primary Physician: Mica Car MD Finalized Date/Time: 02/14/24 12:08:58 Pt. Name: LEIGHTON ARCINIEGA/Sex: 1945 Male Med Rec #: [id number] Physician: Mica Car MD Financial #: [id number] Pt. Type: O Room/Bed: / Admit/Disch: 02/14/24 [...] 3 Case Attendee Josep SANDHU, Jocy Perea REPAIR COIL WINDER, Aura Zambrano Role Performed Surgeon - Primary Sew On Operator - Primary Scrub - Primary Time [...] Cor[place] 02/14/24 12:08 Jocy Corral 02/14/24 12:08 [facility] Main OR Preoperative Recordo n 02-14-2024 Main OR Preoperative Record Main OR Preoperative Record Holding Area Document Type FTURO Summary Primary Physician: Mica Car MD Finalized Date/Time: 02/14/24 11:48:27 Pt. Name: LEIGHTON ARCINIEGA /Sex: 1945 Male Med Rec #: [id number] Physician: Mica Car MD Financial #: [id number] Pt. Type: O Room/Bed: / Admit/Disch: 02/14/24 [...] Complaints of Pain: No Skin Integrity Intact, [place], Warm, & Dry Vitals - EU Blood Pressure 152/74 Pulse 61 bpm Respirations 18 br/min SPO2 97 % Additional None RN Reviewed Yes Specimens Collected Last Modified By: Jocy Corral 02/14/24 11:48:23 Finalized By: Jocy Corral Document Signatures Signed By: [place] David LPN 02/14/24 11:05 Jocy Corral 02/14/24 11:48 Jocy Corral 02/14/24 11:48 Normal [facility] Operative Reporton 4 Operative Report Operative [...] clearer. Follow-up in 1 month PVR.. Normal [facility] Comment on above: Result Comment: Elec tronically Signed By: Josep SANDHU, Mica Johns\.br\Date and Time Signed: 02/14/24 12:03 EST Outpatient Surgery Discharge Instructionon 02-14-2024 Outpatient Surgery Discharge Instruction Outpatient Surgery Discharge Instruction [address] [address] Patient Discharge Instructions PERSON INFORMATION [...] While there (more content not included)... Normal [facility] Ambulatory Visit Summaryon 1 04-01-2023 Ambulatory [...] Strength 500 mg oral tablet) acetaminophen-hydroc odone (Kunia 325 mg-5 mg oral tablet) allopurinol (allopurinol [...] if questions or concerns Unchanged acetaminophen-hydroc odone (Kunia 325 mg-5 mg oral tablet) 1 Tablets [...] omeprazole (omep (more content not included)... Normal [facility] Urology Office/Clinic Noteon 01-31-2024 Urology Office/Clinic Note Urology Office/Clinic Note [facility] Staff 78 year old male patient presents today for a [facility] ER follow up 01/23/24. Pt has [...] with voice recognition artificial intelligence software, specifically [employer], [employer] and or [employer]. Substitutions may have occurred due to the [...] (N52.9: Male erectile dysfunction, unspecified) Hx of [place] in 2002. Has pacemaker in place. Denies [...] in medic (more content not included)... Normal [facility] Comment on above: Result Comment: Elec tronically Signed By: [place]EL Sr APRN, Anna Herrera\.br\Date and Time Signed: 01/31/24 16:26 EST URINE CULTUREon 01-24-2024 Bacteria identified Cx Nom (U) CULTURE RESULTS NO GROWTH AT <1000 CFU/mL Normal [facility] Comment on above: Performed By: #### 6 30-4 #### [facility] ([id number]) [address] [facility], [address] [place] [address] URN MACROSCOPIC NURon 2023 BILIRUBIN LETHA Negative Normal NEG [facility] Comment on above: Performed By: #### N UM #### [facility] ([id number]) [address] [place] [address], [place] [address] BLOOD/HGB LETHA Trace Abnormal NEG [facility] Comment on above: Performed By: #### N UM #### [facility] ([id number]) [address] [place] [address], [place] [address] GLUCOSE LETHA >=1000 Abnormal NEG [facility] Comment on above: Performed By: #### N UM #### [facility] ([id number]) [address] [place] [address] [place] [address] KETONES LETHA Negative Normal NEG [facility] Comment on above: Performed By: #### N UM #### [facility] ([id number]) [address] [place] [address] [place] [address] LEUKOCYTE ESTERASE LETHA Large Abnormal NEG Pr [facility] Comment on above: Performed By: #### N UM #### [facility] ([id number]) [address] [place] [address] [place] [address] NITRITE LETHA Negative Normal NEG [facility] Comment on above: Performed By: #### N UM #### [facility] ([id number]) [address] [place] [address] [place] [address] PH LETHA 6.0 Normal 5.0-8.5 [facility] Comment on above: Performed By: #### N UM #### [facility] ([id number]) [address] [place] [address] [place] [address] PROTEIN LETHA 100 mg/dL Abnormal NEG [facility] Comment on above: Performed By: #### N UM #### [facility] ([id number]) [address] [place] [address] [place] [address] SPECIFIC GRAVITY LETHA 1.015 Normal 1.003-1.035 [facility] Comment on above: Performed By: #### N UM #### [facility] ([id number]) [address] [place] [address], [place] [address] UROBILINOGEN LETHA 0.2 eu/dL Normal <1.1 [facility] Comment on above: Performed By: #### N UM #### [facility] ([id number]) [address] [place] [address], [place] [address] Inpatient Patient Summaryon 12-27-2023 Inpatient Patient Summary Inpatient Patient Summary [address] [address] Clinical Summary Person Information Name: LEIGHTON ARCINIEGA Age: 78 Years : 1945 Sex: Male PCP: Lori Medina MD Marital Status: Race: White Ethnicity: Non- or Language: Austrian Visit Id: Visit Reason: BPH WITH URINARY OBSTRUCTION Speciality: Acuity: Enc Type: Outpatient Med Service: Surgery Arrival: 12/27/2023 09:33:05 Discharge: Dispo Type: Address: [address] [place] [address] [address] [facility] [phone] Provider Notes: Diagnosis: Anticoagulated; Other obstructive and [...] day as needed for pain. acetaminophen-hydroc odone (Kunia 325 mg-5 mg oral tablet) 1 Tablets [...] Information: EU - Cystoscopy Discharge Instructions (CUSTOM) [facility] Main OR Intraoperative Recor don 12-27-2023 Main OR Intraoperative Record Main OR Intraoperative Record IntraOp Document Type FTURO Summary Primary Physician: Mica Car MD Finalized Date/Time: 12/27/23 11:42:38 Pt. Name: LEIGHTON ARCINIEGA/Sex: 1945 Male Med Rec #: [id number] Physician: Mica Car MD Financial #: [id number] Pt. Type: O Room/Bed: / Admit/Disch: 12/27/23 [...] Micky Vargas Role Performed Surgeon - Primary Sew On Operator - Primary Scrub - Primary Time In 12/27/23 11:23:00 12/27/23 11:23:00 12/27/23 11:23:00 Time Out 12/27/23 11:42:00 12/27/23 11:42:00 12/27/23 11:42:00 Procedure PROSTATE TRANSRECTAL PROSTATE TRANSRECTAL PROSTATE TRANSRECTAL ULTRASOUND WITH BIO(.) ULTRASOUND WITH BIO(.) ULTRASOUND WITH BIO(.) Comments Last Modified By: Tunde GODINEZ, Ankita Gray RN, Ankita Gray RN, Ankita iWllett 12/27/23 Shelly Willett 12/27/23 Shelly P 12/27/23 [...] By: Ankita Gray RN 12/27/23 11:42 Normal [facility] Operative Reporton Operative Report Operative Report Patient: LEIGHTON ARCINIEGA Age: 78 years Sex: Male : 1945 Associated Diagnoses: None Author: Mica Car MD Procedure Operative Information Details: Date/ Time: 12/27/2023 12:10:00. Pre-Op Dx: BPH w/ LUTS - N40.1. Post-Op Dx: Feeling of incomplete bladder emptying (NYX33-MT R39.14, Working, Medical), Anticoagulated (NOE99-YG Z79.01, Discharge, Medical), Same. Anesthesia Type: Local. [...] and Valium prior to procedure. 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 -Will need blood thinners held prior to procedure. Elevated risk of bleeding discussed. -Patient did better on terazosin. Will DC tamsulosin and restart terazosin 10 mg daily. [facility] [place] Normal [facility] Comment on above: Result Comment: Elec tronically Signed By: Josep SANDHU, Mica Benson.br\Date and Time Signed: 12/27/23 12:14 EDT Outpatient Surgery Discharge Instructionon 12-27-2023 Outpatient Surgery Discharge Instruction Outpatient Surgery Discharge Instruction [place] [id number] Patient Discharge Instructions PERSON INFORMATION Name: LEIGHTON [...] When: Mica Car Comments: Office to schedule [facility] Type Location Start Finish State NCV Pacemaker [...] for choosing [facility] Normal [facility] Ambulatory Visit Summaryon 0 11-12-2023 Ambulatory [...] Strength 500 mg oral tablet) acetaminophen-hydroc odone (Kunia 325 mg-5 mg oral tablet) allopurinol (allopurinol [...] if questions or concerns Unchanged acetaminophen-hydroc odone (Kunia 325 mg-5 mg oral tablet) 1 Tablets [...] Mouth E (more content not included)... Normal [facility] Urology Office/Clinic Noteon 11-12-2023 Urology Office/Clinic [...] (N52.9: Male erectile dysfunction, unspecified) Hx of [place] in 2002. Has pacemaker in place. Denies [...] antigen) Seborr (more content not included)... Normal [facility] Comment on above: Result Comment: Elec tronically Signed By: Mica Car MD\.br\Date and Time Signed: 11/12/23 16:43 EDT\.br\Electronically Co-Signed By: Maria Luz Mejia\.br\Date and Time Co-Signed: 11/12/23 16:14 EDT PTH [place] 10-15-2023 Parathyrin.intact [Mass/Vol] 49 pg/mL Invalid Interpretation Code 15-65 [facility] Comment on above: Result Comment: Perf ormed at: [facility] [address] [id number] PhD Carlos Singh Performed By: #### 1 [id number] #### [facility] [address] [place] [address] ED Clinical Summaryon 2023 ED Clinical Summary ED Clinical Summary [address] [address] ED Clinical Summary Person Information Name: LEIGHTON ARCINIEGA [place] Age: 77 Years : 1945 Sex: Male Language: Austrian PCP: Lori Medina MD Marital Status: Visit [...] 13:18:55 10/14/2023 13:18:55 ADDRESS: Danie TONEY [address] [place] [phone] PHYS DOC NOTES: MEDICAL INFORMATION: Prescriptions Given: New Medications [id number], [address] [place], [place] [phone], [phone] acetaminophen-hydroc odone (Kunia 325 mg-5 mg oral tablet) 1 Tablets [...] EDUCATION INFORMATION: Instructions: Acute Knee Pain, Adult, Vcsh-bb-Awpp Follow up: With: Address: When: Andrea Espan[address] [place] [address] Business (1) In 3 days 10/17/2023 With: Address: When: Call to schedule a follow-up appointment with your orthopedic surgeon. Use the Kunia as needed for pain along with icing. . If you are unable to get in with your orthopedic surgeon, I have provided a referral for another one. In 3 days 10/17/2023 With: Address: When: Lori Medina [facility], [facility] [place] [address] Business (1) In 3 days DIAGNOSIS: Posterior left knee pain Normal [facility] ED Note-Physicianon 10-14-19 ED Note-Physician ED [...] he is being prescribed 4 doses of Kunia. He was educated on appropriate use of [...] q4hr for pain, 4 tab(s), Refill(s) 0, [facility] [employer] #[id number], 177, cm, 10/14/23 11:44:00 EDT, Height/Length Dosing, 104.8, kg, 10/14/23 11:44:00 EDT, Weight Dosing Disposition Plan Patient Discharge Condition stable Discharge Disposition home Discharge Prescription List Prescriptions Kunia 325 mg-5 mg oral tablet, 1 tab(s), Oral, q4hr, PRN Follow-up With When Contact Information Andrea Maddoxfermín In 3 days 10/17/2023 EDT [address] [place] [address]- Business (1) Additional Instructions: Call to schedule a follow-up appointment with your orthopedic surgeon. Use the Kunia as needed for pain along with icing. . If you are unable to get in with your orthopedic surgeon, I have provided a referral for another one. In 3 days 10/17/2023 EDT Additional Instructions: Lori Carol In 3 days [address] [facility] [place] [address]- Business (1) Additional Instructions: Patient Education Acute Knee Pain, Adult, Bqaa-tw-Decx Attestation Patient seen and evaluated by the physician podiatric assistant. Attending physician was present in the emergency department and supervised care. This visit was performed by both the physician and an APC. I performed all aspects of the MDM as documented. This report was transcribed using voice recognition software. Every effort was made to ensure accuracy, however, inadvertently computerized yard pilot mistakes may be present. Appropriate healthcare PPE was used in evaluating this patient. The patient was placed in a mask. The healthcare provider was wearing mask, gloves, and utiliz (more content not included)... Normal [facility] Comment on above: Result Comment: Elec tronically Signed By: Vini Quinteros DO\.br\Date and Time Signed: 10/14/23 16:09 EDT\.br\Electronically Co-Signed By: Nayla William PA-C\.br\Date and Time Co-Signed: 10/14/23 13:46 EDT ED Patient Summaryon 024 ED Patient Summary ED Patient Summary [facility] [address] [place], [place] [address] Patient Discharge Instructions Person Information Name: LEIGHTON ARCINIEGA Age: 77 Years Arrival Date: 10/14/2023 11:36:13 Discharge Diagnosis: Posterior left knee pain Primary Care Physician: Lori Medina MD Provider Information Primary Provider: Vnii Quinteros DO Advanced Typewriter Tester:Nayla William PA-C The exam and treatment you received in the Emergency Department were for an urgent problem and are not intended as complete care. It is important that you follow up with a doctor, nurse practitioner, or physician?s podiatric assistant for ongoing care. If your symptoms [...] Instructions: With: Address: When: Andrea Espana [address] [place], [place] [id number] Business (1) In 3 days 10/17/2023 With: Address: When: Call to schedule a follow-up appointment with your orthopedic surgeon. Use the Kunia as needed for pain along with icing. . If you are unable to get in with your orthopedic surgeon, I have provided a referral for another one. In 3 days 10/17/2023 With: Address: When: Lori Medina [address] [facility] [place] [address] Business (1) In 3 days In the event that this physician does not participate in your insurance network, please consult with your insurance company to find a nearby participating provider. Patient Education Materials: Acute Knee Pain, Adult, Lkek-rl-Wrfl A MESSAGE TO ALL PATIENTS REGARDING OPIOIDS PRESCRIPTION OPIOIDS: WHAT YOU NEED TO KNOW Prescription opioids can be used to help relieve yxgywnnj-ov-fiwrtg pain and are often prescribed following a [...] or yo (more content not included)... Normal [facility] XR Knee Complete 4+ Views Le [...] mGy = na DAP = na Normal [facility] Screenson 06-17-2023 Screens [id number] #1.00TIFF Normal [facility] Screens [id number] #1.00TIFF Normal [facility] Ambulatory Visit Summaryon 0 06-16-2023 Ambulatory [...] these instructions at home: Medicines ? Take dxvh-zyy-noafcog and prescription medicines only as told by [...] include cig (more content not included)... Normal [facility] Urology Office/Clinic Noteon 06-16-2023 Urology Office/Clinic [...] (N52.9: Male erectile dysfunction, unspecified) Hx of [place] in 2002. Has pacemaker in place. Denies [...] Information Josep SANDHU, Mica Johns, URL, [facility] [address], [place] [phone] Additional Instructions: Has f/u already scheduled 11/12/23 [...] Amputation, Tonsillectomy. (more content not included)... Normal [facility] Comment on above: Result Comment: Elec tronically Signed By: NATA TA PA-C\.br\Date and Time Signed: 06/16/23 10:56 EDT\.br\Electronically Co-Signed By: Kriss Frankel\.br\Date and Time Co-Signed: 06/16/23 10:48 EDT Screenson 05-10-2023 Screens [id number] #1.00TIFF [facility] Screens [id number] #1.00TIFF [facility] Ambulatory Visit Summaryon 0 05-07-2023 Ambulatory [...] NATA TA PA-C Where: [facility] Normal [address] [address]- \.br\ You Need to Schedule the Following Appointments\.br \ Follow Up with NATA TA PA-C, URL When: \.br\ Comments:\.br\ 1 mos w/ PVR \.br\ Where:\.br\ [address]\.br\ [place] [address]\.br\ [id number]\.br\ Medications\.br\ What How Much When Instructions\.br \ New tadalafil (tadalafil 10 mg Tab) 1 Tablets By Mouth As Directed as needed for for erectile dysfunction Refills: 3 Take one tab 1 hour prior to sexual activity. Do not exceed 20mg in 48hrs. Pickup at [facility] #[id number]\.br\ New tamsulosin (tamsulosin 0.4 mg Cap) 1 Capsules By Mouth Once a day (in the evening) Refills: 11 Pickup at [facility] #[id number]\.br\ Unchanged acetaminophen (Tylenol Extra Strength 500 mg [...] or concerns \.br\ Pharmacy Information\.br\ [id number]: [address] [place], [place] [id number] [phone]\.br\ Allergies\.br\ Monopril (Dry cough)\.br\ Strawberries (rash)\.br\ Tomatoes [...] Symptoms of this condition include:\.br\ ? \ [facility] Ambulatory Visit Summary LEIGHTON ARCINIEGA :1945 [...] med) Where: [address], [place] [phone] Medications What How Much When Instructions Unchanged [...] Every da (more content not included)... Normal [facility] Patient Educationon 05-07-19 Patient Education Urology [...] these instructions at home: Medicines ? Take dzsd-xnr-iiqpwcy and prescription medicines only as told by [...] include cig (more content not included)... Normal [facility] Urology Office/Clinic Noteon 05-07-2023 Urology Office/Clinic [...] (N52.9: Male erectile dysfunction, unspecified) Hx of [place] in 2002. Has pacemaker in place. AMANDA [...] Information Josep SANDHU, Mica Johns, URL, [facility] [address], [place] [address]- [phone] Additional Instructions: 1 mos w/ PVR Patient Education Erectile Dysfunction I, Kriss Frankel, personally scribed for Dr. Car on 05/07/2023 15:06:02. . Documentation recorded by the scribe, Kriss Frankel, accurately reflects the services(s) I performed and decisions made by me. Authenticated by Dr. Car on 05/07/2023 16:05:51. Problem List/Past Medical History Ongoing Anticoagulated Arthritis Aspirin marshall (more content not included)... Normal [facility] Comment on above: Result Comment: Elec [...] Weight Tips; Status:Complete - Retrospective Authorization; Done: [id number] Some eating tips that can help you lose weight.; Status:Complete - Retrospective Authorization; Done: [id number] Essential hypertension Renew: Carvedilol 6.25 MG Oral Tablet; Take 1 tablet twice daily Hyperlipidemia Renew: Simvastatin 20 MG Oral Tablet; TAKE 0.5 TABLET Bedtime SocHx: Former smoker Tobacco Use Screening; Status:Complete; Done: [id number] Patient Instructions Please bring all medicines, vitamins, [...] education sheet. 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 [...] Screening.on 023 Adult depression screening assessment No [facility] [employer] lk 600 DO Work Phone: Fall risk assessment b) One or more fall s in the last year [facility] 600 DO Work Phone: Tobacco use status [facility] b) No [facility] l[facility] 600 DO Work Phone: CBC AUTO DIFFon 05-28-2022 BASO # 0.0 103/ul Normal 0.0-0.1 [facility] Comment on above: Performed By: #### C BC #### [facility] [address] [place] [address] Dr. Susie Hale Basophils/100 WBC (Bld) 0.5 % Normal 0.2-2.0 [facility] Comment on above: Performed By: #### C BC #### [facility] [address] [place] [address] Dr. Susie Hale EO # 0.1 103/ul Normal 0.0-0.7 [facility] Comment on above: Performed By: #### C BC #### [facility] [address] [place] [address] Dr. Susie Hale Eosinophils/100 WBC (Bld) 1.8 % Normal 0.9-7.0 [facility] Comment on above: Performed By: #### C BC #### [facility] [address] [place] [address] Dr. Susie Hale Erythrocyte distribution width (RBC) [Ratio] 13.0 % Normal 11.0-15.0 [facility] Comment on above: Performed By: #### C BC #### [facility] [address] [place] [address] Dr. Susie Hale Hematocrit (Bld) [Volume fraction] 35.0 % Critically low 42.0-54.0 [facility] Comment on above: Performed By: #### C BC #### [facility] [address] [place] [address] [address] Susie Hale Hemoglobin (Bld) [Mass/Vol] 12.2 g/dL Critically low 14.0-18.0 [facility] Comment on above: Performed By: #### C BC #### [facility] [address] [place] [address] [address] Susie Hale IG # 0.05 10e3/ul Critically high 0.00-0.03 [facility] Comment on above: Performed By: #### C BC #### [facility] [address] [place] [address] Dr. Susie Hale IG % 0.8 % Critically high 0.0-0.5 [facility] Comment on above: Performed By: #### C BC #### [facility] [address] [place] [address] Dr. Susie Hale LYMPH # 1.9 103/ul Normal 1.2-3.8 [facility] Comment on above: Performed By: #### C BC #### [facility] [address] [place] [address] Dr. Susie Hale Lymphocytes/100 WBC (Bld) 28.7 % Normal 20.5-60.0 [facility] Comment on above: Performed By: #### C BC #### [facility] [address] [place] [address] Dr. Susie Hale MANUAL DIFF REQ NO Normal [facility] Comment on above: Performed By: #### C BC #### [facility] [address] [place] [address] Dr. Susie Hale MCH (RBC) [Entitic mass] 32.1 pg Normal 25.9-34.0 [facility] Comment on above: Performed By: #### C BC #### [facility] [address] [place] [address] Dr. Susie Hale MCHC (RBC) [Mass/Vol] 34.9 g/dL Normal 29.9-35.2 [facility] Comment on above: Performed By: #### C BC #### [facility] [address] [place] [address] [address] Susie Hale MCV (RBC) [Entitic vol] 92.1 fL Normal 80.0-94.0 [facility] Comment on above: Performed By: #### C BC #### [facility] [address] [place] [address] [address] Susie Hale MONO # 0.7 103/ul Normal 0.3-0.8 [facility] Comment on above: Performed By: #### C BC #### [facility] [address] [place] [address] [address] Susie Hale Monocytes/100 WBC (Bld) 10.9 % Normal 1.7-12.0 [facility] Comment on above: Performed By: #### C BC #### [facility] [address] [place] [address] Dr. Susie Hale NEUT # 3.7 103/ul Normal 1.4-6.5 [facility] Comment on above: Performed By: #### C BC #### [facility] [address] [place] [address] Dr. Susie Hale Neutrophils/100 WBC (Bld) 57.3 % Normal 43.0-75.0 [facility] Comment on above: Performed By: #### C BC #### [facility] [address] [place] [address] Dr. Susie Hale Platelet mean volume (Bld) [Entitic vol] 8.5 fL Critically low 9.5-13.5 [facility] Comment on above: Performed By: #### C BC #### [facility] [address] [place] [address] Dr. Susie Hale PLT 238 103/ul Normal 150-450 [facility] Comment on above: Performed By: #### C BC #### [facility] [address] [place] [address] Dr. Susie Hale RBC 3.80 106/ul Critically low 4.70-6.10 [facility] Comment on above: Performed By: #### C BC #### [facility] [address] [place] [address] [address] Susie Hale WBC 6.5 103/ul Normal 4.0-11.0 [facility] Comment on above: Performed By: #### C BC #### [facility] [address] [place] [address] STROKE HEAD WOon [...] Parenchyma: No intracranial mass. No intracranial hemorrhage. Psain-white matter within expected limits of normal for [...] SANAZ CANO Date: 2022-05-28 18:17 Normal [facility] PROF 14(COMP METB)on 023 Albumin [Mass/Vol] 3.5 g/dL Normal 3.4-5.0 [facility] Comment on above: Performed By: #### C MP #### [facility] [address] [place] [address] Dr. Susie Hale Albumin/Globulin [Mass ratio] 1.1 {ratio} Normal [facility] Comment on above: Performed By: #### C MP #### [facility] [address] [place] [address] Dr. Susie Hale ALP [Catalytic activity/Vol] 87 U/L Normal 46-116 [facility] Comment on above: Performed By: #### C MP #### [facility] [address] [place] [address] [address] Susie Hale ALT [Catalytic activity/Vol] 16 U/L Normal 16-63 [facility] Comment on above: Performed By: #### C MP #### [facility] [address] [place] [address] [address] Ssuie Hale Anion gap [Moles/Vol] 10.0 mmol/L Normal [facility] Comment on above: Performed By: #### C MP #### [facility] [address] [place] [address] [address] Susie Hale AST [Catalytic activity/Vol] 14 U/L Critically low 15-37 [facility] Comment on above: Performed By: #### C MP #### [facility] [address] [place] [address] [address] Susie Hale Bilirubin [Mass/Vol] 0.2 mg/dL Normal 0.2-1.0 [facility] Comment on above: Performed By: #### C MP #### [facility] [address] [place] [address] [address] Susie Hale Calcium [Mass/Vol] 8.9 mg/dL Normal 8.5-10.1 [facility] Comment on above: Performed By: #### C MP #### [facility] [address] [place] [address] [address] Susie Hale Chloride [Moles/Vol] 105 mmol/L Normal 98-107 [facility] Comment on above: Performed By: #### C MP #### [facility] [address] [place] [address] [address] Susie Hale CO2 [Moles/Vol] 25.7 mmol/L Normal 21.0-32.0 [facility] Comment on above: Performed By: #### C MP #### [facility] [address] [place] [address] [address] Susie Hale Creatinine [Mass/Vol] 1.87 mg/dL Critically high 0.70-1.30 [facility] Comment on above: Performed By: #### C MP #### [facility] [address] [place] [address] [address] Susie Hale EGFR-AF [place] 43 mL/min/1.73m2 Critically low >=60 [facility] Comment on above: Performed By: #### C MP #### [facility] [address] [place] [address] [address] Susie Hale EGFR-NON AF [place] 35 mL/min/1.73m2 Critically low >=60 [facility] Comment on above: Performed By: #### C MP #### [facility] [address] [place] [address] [address] Susie Hale Globulin (S) [Mass/Vol] 3.2 g/dL Normal [facility] Comment on above: Performed By: #### C MP #### [facility] [address] [place] [address] [address] Susie Hale Glucose [Mass/Vol] 256 mg/dL Critically high 74-106 [facility] Comment on above: Performed By: #### C MP #### [facility] [address] [place] [address] [address] Susie Hale Potassium [Moles/Vol] 3.7 mmol/L Normal 3.5-5.1 [facility] Comment on above: Performed By: #### C MP #### [facility] [address] [address] [address] Susie Hale Protein [Mass/Vol] 6.7 g/dL Normal 6.4-8.2 [facility] Comment on above: Performed By: #### C MP #### [facility] [address] [address] [address] Susie Hale Sodium [Moles/Vol] 137 mmol/L Normal 136-145 [facility] Comment on above: Performed By: #### C MP #### [facility] [address] [address] [address] Susie Hale Urea nitrogen [Mass/Vol] 22.0 mg/dL Critically high 7.0-18.0 [facility] Comment on above: Performed By: #### C MP #### [facility] [address] [place], [place] [address] Dr. Susie Hale Urea nitrogen/Creatinine [Mass ratio] 11.8 mg/mg Normal [facility] Comment on above: Performed By: #### C MP #### [facility] [address] [place], [place] [address] Dr. Susie Hale Office Visit (Cardiology)on 12-16-2021 [...] in adult Healthy Weight Tips; Status:Complete; Done: [id number] Some eating tips that can help you lose weight.; Status:Complete; Done: [id number] Essential hypertension Renew: Carvedilol 6.25 MG Oral Tablet; Take 1 tablet twice daily Hyperlipidemia Renew: Simvastatin 20 MG Oral Tablet; TAKE 0.5 TABLET Bedtime SocHx: Former smoker Tobacco Use Screening; Status:Complete; Done: [id number] Unlinked Stop: Aspirin 325 MG Oral Tablet [...] your visit. Device check as directed per [facility] protocol Follow up in 6-9 months Chief [...] skin r (more content not included)... Normal iPawn Tobacco Screening.on 022 Adult depression screening assessment No [facility] [employer] 600 DO Work Phone: Fall risk assessment a) No falls within the last year [facility] 600 DO Work Phone: Tobacco use status CP b) No [facility] 600 DO Work Phone: Tobacco Screening.on 021 Fall risk assessment a) No falls within the last year [facility] [employer] haresh 250 DO Work Phone: Tobacco use status CPHS b) No [facility] Q[employer] 250 DO Work Phone: Vital Signs Date Time Vital Sign Value Performing Clinician Facility 05-13-2024 14:53-0500 SaO2% (BldA) [Mass fraction] 95 % Lori Medina MD Work Phone: [facility] 05-13-2024 11:55-0500 Diastolic blood pressure 62 mm[Hg] Lori Medina MD Work Phone: [facility] 05-13-2024 11:55-0500 Heart rate 89 /min Lori Medina MD Work Phone: [facility] 05-13-2024 11:55-0500 Inhaled oxygen flow rate 2 L/min Lori Medina MD Work Phone: [facility] 05-13-2024 11:55-0500 Respiratory rate 17 /min Lori Medina MD Work Phone: [facility] 05-13-2024 11:55-0500 Systolic blood pressure 123 mm[Hg] Lori Medina MD Work Phone: [facility] 05-13-2024 08:00-0500 Body temperature 97.6 [degF] Lori Medina MD Work Phone: [facility] 05-13-2024 06:00-0500 Body weight 88 kg Lori Medina MD Work Phone: [facility] 05-11-2024 04:00-0500 Inhaled oxygen concentration 40 % Lori Medina MD Work Phone: [facility] 05-10-2024 15:22-0500 Body height 177.8 cm Lori Medina MD Work Phone: [facility] 03-01-2024 11:12-0500 Body height 177.8 cm Osvaldo [...] 70 mm[Hg] Dank Robert DO Work Phone: [facility] 12-14-2023 13:17-0400 Heart rate 68 /min Dank Robert DO Work Phone: [facility] 12-14-2023 13:17-0400 SaO2% (BldA) [Mass fraction] 97 % Dank Robert DO Work Phone: [facility] 12-14-2023 13:17-0400 Systolic blood pressure 152 mm[Hg] Dank Robert DO Work Phone: [facility] 08-25-2023 12:12-0400 Body height [...] height 177.8 cm Andrea Espinoza Work Phone: [facility] 600 DO Work Phone: 07-01-2022 10:54-0400 Body mass index (BMI) [Ratio] 32.71 kg/m2 Andrea Espinoza Work Phone: [facility] [employer] 600 DO Work Phone: 07-01-2022 10:54-0400 Body surface area Derived from formula 2.21 m2 Andrea Espinoza Work Phone: [facility] 600 DO Work Phone: 07-01-2022 10:54-0400 Body weight 103.42 kg Andrea Espinoza Work Phone: [facility] 600 DO Work Phone: 07-01-2022 10:54-0400 Diastolic blood pressure 64 mm[Hg] Andrea Espinoza Work Phone: [facility] 600 DO Work Phone: 07-01-2022 10:54-0400 Heart rate 72 /min Andrea Espinoza Work Phone: [facility] [employer] 600 DO Work Phone: 07-01-2022 10:54-0400 Systolic blood pressure 118 mm[Hg] Andrea Vasquezroh Work Phone: [facility] [employer] 600 DO Work Phone: 12-16-2021 11:08-0400 Body height 177.8 cm Andrea Espinoza Work Phone: [facility] [employer] 600 DO Work Phone: 12-16-2021 11:08-0400 Body mass index (BMI) [Ratio] 33.86 kg/m2 Andrea Houstonh Work Phone: [facility] [employer] 600 DO Work Phone: 12-16-2021 11:08-0400 Body surface area Derived from formula 2.24 m2 Andrea Espinoza Work Phone: [facility] [employer] 600 DO Work Phone: 12-16-2021 11:08-0400 Body weight 107.05 kg Andrea Espinoza Work Phone: [facility] 600 DO Work Phone: 12-16-2021 11:08-0400 Diastolic blood pressure 64 mm[Hg] Andrea Vasquezroh Work Phone: [facility] 600 DO Work Phone: 12-16-2021 11:08-0400 Heart rate 72 /min Andrea Vasquezroh Work Phone: [facility] 600 DO Work Phone: 12-16-2021 11:08-0400 Systolic blood pressure 132 mm[Hg] Andrea Espinoza Work Phone: [facility] 600 DO Work Phone: 01-22-2021 14:36-0400 Body height 177.8 cm Andrea Espinoza Work Phone: [facility] 250 DO Work Phone: 01-22-2021 14:36-0400 Body mass index (BMI) [Ratio] 34.01 kg/m2 Andrea Espinoza Work Phone: [facility] 250 DO Work Phone: 01-22-2021 14:36-0400 Body surface area Derived from formula 2.24 m2 Andrea Espinoza Work Phone: [facility] 250 DO Work Phone: 01-22-2021 14:36-0400 Body weight 107.5 kg Andrea Espinoza Work Phone: [facility] 250 DO Work Phone: 01-22-2021 14:36-0400 Diastolic blood pressure 54 mm[Hg] Andrea Espinoza Work Phone: [facility] 250 DO Work Phone: 01-22-2021 14:36-0400 Heart rate 76 /min Andrea Espinoza Work Phone: [facility] 250 DO Work Phone: 01-22-2021 14:36-0400 Systolic blood pressure 104 mm[Hg] Andrea Espinoza Work Phone: [facility] 250 DO Work Phone: Encounters Encounter Date Encounter Type Care Provider Facility Start: 05-18-2024 ambulatory Mica Car Facility:[facility] [place] Start: 05-13-2024 Non-patient / Non-visit Nova Medina MD Work Phone: [facility] Physician [facility] Work Phone: Start: 05-12-2024 ambulatory Mica Car Facility:[facility] Start: 05-09-2024 End: 05-13-2024 Evaluation and management of inpatient Lori Medina MD Work Phone: [facility] Work Phone: Start: 04-26-2024 End: 04-26-2024 ambulatory Mica Car [facility] [place] Start: 04-25-2024 End: 04-25-2024 ambulatory Deepti Powell Facility:[facility] [place] Start: 04-25-2024 End: 04-25-2024 ambulatory Mica Car Facility:[facility] [place] Start: 04-12-2024 End: 04-12-2024 ambulatory Mica Car [facility] Start: 04-08-2024 Non-patient / Non-visit Nova Medina MD Work Phone: [facility] Work Phone: Start: 04-06-2024 End: 04-06-2024 ambulatory Mica Car Facility:[facility] Start: 03-28-2024 End: 03-28-2024 ambulatory Benton Vasquez [facility] Work Phone: Start: 03-28-2024 End: 03-28-2024 Departed Referred Benton Vasquez DO [facility] [place] [facility] Start: 03-24-2024 End: 03-24-2024 ambulatory Mica Car Facility:[facility] Start: 03-11-2024 End: 03-11-2024 ambulatory Benton Vasquez Facility:[facility] Start: 03-11-2024 End: 03-11-2024 Departed Referred Benton Vasquez DO [facility] [place] [facility] Start: 03-02-2024 End: 03-02-2024 ambulatory NATA TA [facility] Start: 03-01-2024 End: 03-01-2024 Office outpatient visit 25 minutes Osvaldo Dickinson MD Work Phone: [facility] Comment on above: Paroxysmal atrial fi brillation (Multi) (Primary Dx); Sick sinus syndrome (Multi); Pacemaker; Essential hypertension; Cardiomyopathy, unspecified type (Multi); Mixed hyperlipidemia; Stage 4 chronic kidney disease (Multi); Non-smoker; BMI 30.0-30.9,adult Start: 03-01-2024 End: 03-01-2024 ambulatory [facility] Start: 02-19-2024 End: 02-19-2024 Emergency department patient visit LORI Val[facility] Start: 02-18-2024 End: 02-18-2024 ambulatory Mica Car Facility:[facility] Start: 02-14-2024 End: 02-14-2024 ambulatory Mica Car Facility:[facility] Start: 01-31-2024 End: 01-31-2024 ambulatory Anna Milespatricia Facility:[facility] Start: 01-24-2024 End: 01-24-2024 Emergency department patient visit BOBO Gifford [facility] Start: 01-17-2024 End: 01-17-2024 Office outpatient visit 25 minutes Blanca Alonso MD Work Phone: [facility] Comment on above: Other atopic dermati tis (Primary Dx); Seborrheic keratosis; Lentigines; History of SCC (squamous cell carcinoma) of skin Start: 01-17-2024 End: 01-17-2024 ambulatory BLANCA ALONSO Not Available Start: 12-27-2023 End: 12-27-2023 ambulatory Mica Car Facility:[facility] Start: 12-14-2023 End: 12-14-2023 Bamboo flowsheet Dank Jones DO Work Phone: [facility] [address] [facility] Start: 12-14-2023 End: 12-14-2023 Bamboo flowsheet Dank Jones DO Work Phone: [facility] Start: 12-14-2023 End: 12-14-2023 Office outpatient visit 25 minutes Dank Robert DO Work Phone: [facility] Comment on above: VIRGILIO (obstructive sle ep apnea) (Primary Dx); Hypersomnia; PLMD (periodic limb movement disorder); Obesity due to excess calories, unspecified classification, unspecified whether serious comorbidity present; Snoring Start: 12-14-2023 End: 12-14-2023 ambulatory DANK JONES Not Available Start: 12-09-2023 End: 12-09-2023 ambulatory Varghese Caal Facility:[facility] Start: 11-12-2023 End: 11-12-2023 ambulatory Mica Car Facility: [place] Start: 10-14-2023 End: 10-14-2023 Emergency department patient visit Vini Quinteros Facility:[facility] Start: 10-14-2023 ambulatory Barb Elkins cility:[facility] Start: 08-31-2023 End: 08-31-2023 ambulatory BLANCA A PETITTI Not Available Start: 08-25-2023 End: 08-25-2023 Office outpatient visit 25 minutes Varghese Caal MD Work Phone: [facility] Comment on above: Essential hypertensi on (Primary Dx); Sick sinus syndrome (Multi); Mixed hyperlipidemia; Paroxysmal atrial fibrillation (Multi); Dilated cardiomyopathy (Multi); Pacemaker; BMI 33.0-33.9,adult Start: 08-25-2023 End: 08-25-2023 [facility] Start: 08-10-2023 End: 08-10-2023 ambulatory BLANCA A PETITTI Not Available Start: 06-16-2023 End: 06-16-2023 ambulatory NAPOLEON TA Facility: [place] Start: 05-07-2023 End: 05-07-2023 ambulatory Mica Car Facility:[facility] [place] Start: 03-19-2023 End: 03-19-2023 ambulatory BLANCA PETITTI Not Available Start: 03-05-2023 End: 03-05-2023 ambulatory BLANCA A PETITTI Not Available Start: 02-10-2023 End: 02-10-2023 Office outpatient visit 25 minutes Varghese Caal MD Work Phone: [facility] Comment on above: Sick sinus syndrome (CMS/HCC) (Primary Dx); Mobitz type II atrioventricular block; Pacemaker; Essential hypertension; Dilated cardiomyopathy (CMS/HCC); Paroxysmal atrial fibrillation (CMS/HCC) Start: 10-22-[address] Andrea Espinoza Facility: Start: 07-01-2022 Office outpatient vi sit 25 minutes Andrea Espinoza Work Phone: [facility] 600 DO Work Phone: Start: 07-01-[address] Varghese Caal II Facility: Start: 05-28-2022 End: 05-28-[address] TRINO Lange Facility:[facility] Start: 05-14-2022 End: 05-15-2022 ambulatory MARIXA ROY Facility:[facility] Start: 04-23-[address] Andrea Espinoza Facility: Start: 12-31-2021 Rx Renewal Andrea Espinoza Work Phone: [facility] 250 DO Work Phone: Start: 12-16-2021 Office outpatient vi sit 25 minutes Andrea Espinoza Work Phone: [facility] 600 DO Work Phone: Start: 12-16-[address] Varghese Caal II Facility: Start: 01-22-2021 Office outpatient vi sit 25 minutes Andrea Espinoza Work Phone: [facility] 250 DO Work Phone: Procedures Date Procedure [...] [address] [place] [address] Blanca Alonso MD [address] [place], [place] [id number] [facility] Start: 12-12-2024 End: 12-12-2024 Patient encounter procedure 12/12/2024 1:00 PM EDT Office Visit [facility] [place] [address] [place] [address] Rox Cervantes NP [address] [place], [place] [facility] [place] [facility] Start: 11-28-2024 Glaucoma screening Diabetes: R etinopathy Screening [facility] Start: 11-07-2024 End: 11-07-2024 Patient encounter procedure 11/07/2024 10:30 AM EDT Office Visit [place] [address] [place] [address] Osvaldo Dickinson MD [address] [facility] [address] [place] [address] [facility] Start: 05-13-2024 [facility] Start: 05-12-2024 Administration of prophylactic treatment [facility] Start: 05-09-2024 Hospital admission [facility] Start: 05-09-2024 Referral to music department chair [facility] Start: 03-28-2024 Urine culture [facility] Start: 03-28-2024 Bacteria identified in Urine by Culture Urine Culture [facility] Start: 03-01-2024 End: 03-01-2024 Patient encounter procedure 03/01/2024 11:00 AM EST [facility] [address] [facility] [address] [place] [address] Osvaldo Dickinson MD [address] [facility] [address] [place] [address] [facility] Start: 01-17-2024 End: 01-17-2024 Patient encounter procedure 01/17/2024 3:15 PM EDT Office Visit [facility] [address] [place] [phone] Blanca Alonso MD [address] [place] [address] [facility] Start: 12-14-2023 End: 12-14-2023 Patient encounter procedure 12/14/2023 1:30 PM EDT Office Visit [facility] [place] [address] [place] [phone] Dank Jones, [address] [place], [place] [id number] Arrived [facility] [place] [facility] Comment on above: Arrived Start: 12-01-2023 Glaucoma screening Diabetes: R etinopathy Screening [facility] Start: 08-25-2023 End: 08-25-2023 Patient encounter procedure 08/25/2023 11:40 AM EDT Office Visit [facility] [address] [place] [phone] Varghese Caal MD [address] [facility] [address] [place] [address] [facility] Start: 06-05-2023 COVID-19 Vaccine () COVID-19 Vaccine () [facility] Start: 04-01-2023 COVID-19 Vaccine (6 - Moderna series) COVID-19 Vaccine (6 - Moderna series) [facility] Start: 02-10-2023 FUV, Provider: Varghese Caal, Status: Pen, Time: 11:30 AM FUV, Provider: Varghese Caal, Status: Pen, Time: 11:30 AM -[facility] 600 DO Work Phone: Start: 07-01-2022 FUV, Provider: Varghese Caal, Status: Pen, Time: 10:40 AM FUV, Provider: Varghese Caal, Status: Pen, Time: 10:40 AM [facility] Work Phone: Start: 09-10-2021 FUV, Provider: Varghese Caal, Status: Pen, Time: 2:30 PM FUV, Provider: Varghese Caal, Status: Pen, Time: 2:30 PM [facility] Work Phone: Start: 2020 RSV High Risk: (Elde rly (60+) or Population) (1 - 1-dose 75+ series) RSV High Risk: (Elderly (60+) or Population) (1 - 1-dose 75+ series) [facility] Start: 05-09-2020 Echocardiography Echocardiogram [facility] Start: 2005 RSV patient s and/or [...] Hemoglobin A1c measurement Jennifer betes: Hemoglobin A1C [facility] Start: 1945 Lipid panel Lipid Panel [facility] Start: 1945 Medicare Annual Well ness Visit Medicare Annual Wellness Visit (AWV) [facility] Start: 1945 Potassium measurement Potassium Leve l [facility] Patient referral [facility] Work Phone: Immunizations Immunization Date Immunization Notes Care Provider Severo sneed 01-14-2022 Fluad Quadrivalent 0 .5 ML Intramuscular Prefilled Syringe Andrea Espinoza Work Phone: [facility] 600 DO Work Phone: 01-14-2022 Pfizer COVID-19 Vac Bivalent 30 MCG/0.3ML Intramuscular Suspension Andrea Patel Cura TV Work Phone: [facility] 600 DO Work Phone: 09-03-2021 pneumococcal conjuga te vaccine, 13 valent Dank Jones DO Work Phone: [facility] 02-15-2021 Moderna COVID-19 Vac cine 100 MCG/0.5ML Intramuscular Suspension Andrea Paetl TRANSCOR[employer]ann Work Phone: [facility] 600 DO Work Phone: 01-30-2021 influenza virus vacc ine, unspecified formulation Andrea Amanda Espinoza Work Phone: [facility] 600 DO Work Phone: 11-28-2020 influenza, high dose seasonal, preservative-free Andrea Amanda Vasquezemmazulay Work Phone: [employer] 250 DO Work Phone: Comment on above: Series: 06-20-2020 Moderna COVID-19 Vac cine 100 MCG/0.5ML Intramuscular Suspension Andrea Espinoza Work Phone: [facility] 600 DO Work Phone: 05-20-2020 Moderna COVID-19 Vac cine 100 MCG/0.5ML Intramuscular Suspension Andrea Amanda Espinoza Work Phone: [employer] 250 DO Work Phone: Comment on above: Series: 04-25-2020 Moderna COVID-19 Vac cine 100 MCG/0.5ML Intramuscular Suspension Andrea Amanda Espinoza Work Phone: [employer] 250 DO Work Phone: Comment on above: Series: 12-21-2019 influenza virus vacc ine, unspecified formulation Andrea Patel Pedroemmazulay Work Phone: [facility] 600 DO Work Phone: 12-20-2018 influenza, high dose seasonal, preservative-free Andrea Espinoza Work Phone: [facility] 02-19-2018 influenza virus vacc ine, unspecified formulation Andrea Patel Pedroyann Work Phone: [facility] 600 DO Work Phone: 02-19-2018 pneumococcal polysaccharide vaccine, 23 valent Andrea Espinoza Work Phone: [employer] 250 DO Work Phone: Comment on above: Series: 02-19-2018 pneumococcal vaccine , unspecified formulation Andrea Vasquezemmazulay Work Phone: [facility] 02-18-2017 Influenza, injectabl e, Madin Lakisha Canine Kidney, preservative free, quadrivalent Andrea Espinoza Work Phone: [facility] 600 DO Work Phone: 11-24-2016 influenza, high dose seasonal, preservative-free Andrea Espinoza Work Phone: [facility] 600 DO Work Phone: 12-21-2015 pneumococcal conjuga te vaccine, 13 valent Andrea Espinoza Work Phone: [employer] 250 DO Work Phone: Comment on above: Series: Payers Date Payer Category Payer Self-pay 2022 Medicare [id number] 2022 Department [facility] ( and others) [id number] 2022 () [id number]. [id number] 2022 For Life (TFL) F OR LIFE [id number]. 2.7.9.312747.366138.315 2022 [employer] ( and others) [id number] 2010 Medicare [id number]. 1.13.647. [id number] 1959 [employer] ( and others) [id number] 1959 Medicare [id number] 1945 Unknown [id number] 2.16840.1.631777.3.579. 2.593 1945 Unknown [id number] 2.16840.1.520826.3.579. 2.593 1945 Unknown [id number] 2.16.840.1.195396.3.579. 2.356 1945 Unknown [id number] 2.16840.1.740607.3.579. 2.356 1945 Unknown [id number] 2.16840.1.674503.3.579. 2.356 1945 Unknown [id number] 2.16.840.1.011288.3.579. 2.356 1945 Unknown [id number] 2.16.840.1.973796.3.579. 2.1259 1945 Unknown [id number] 2.16.840.1.492129.3.579. 2.1259 1945 Unknown [id number] 2.16.840.1.075244.3.579. 2.1259 1945 Unknown [id number] 2.16.840.1.854461.3.579. 2.1259 1945 Unknown [id number] 2.16.840.1.250635.3.579. 2.1259 1945 Unknown [id number] 2.16.840.1.881264.3.579. 2.1259 1945 Unknown [id number] 2.16.840.1.458326.3.579. 2.1286 1945 Unknown [id number] 2.16.840.1.669553.3.579. 2.1286 1945 Unknown [id number] 2.16.840.1.843900.3.579. 2.124 1945 Unknown [id number] 2.16.840.1.052161.3.579. 2.1244 1945 Unknown [id number] 2.16840.1.911781.3.579. 2.72 1945 Unknown [id number] 2.16840.1.481096.3.579. 2.72 1945 Unknown [id number] 2.16840.1.152050.3.579. 2.72 1945 Unknown [id number] 2.16.840.1.438128.3.579. 2.72 1945 Unknown [id number] 2.16840.1.138004.3.579. 2.72 1945 Unknown [id number] 2.16.840.1.655292.3.579. 2.72 1945 Unknown [id number] 2.16.840.1.881303.3.579. 2.72 1945 Unknown [id number] 2.16.840.1.150607.3.579. 2.727 1945 Unknown [id number] 2.16.840.1.513674.3.579. 2.727 1945 Unknown [id number] 2.16.840.1.497421.3.579. 2.727 1945 Unknown [id number] 2.16.840.1.697040.3.579. 2.727 1945 Unknown [id number] 2.16.840.1.547951.3.579. 2.72 1945 Unknown [id number] 2.16.840.1.116879.3.579. 2.72 1945 Unknown [id number] 2.16.840.1.464136.3.579. 2.72 1945 Unknown [id number] 2.16.840.1.171357.3.579. 2.727 1945 Unknown [id number] 2.16.840.1.095197.3.579. 2. 1945 Unknown [id number] 2.16.840.1.225823.3.579. 2.727 1945 Unknown [id number] 2.16.840.1.827273.3.579. 2.72 1945 Unknown [id number] 2.16.840.1.321718.3.579. 2.727 1945 Unknown [id number] 2.16.840.1.555920.3.579. 2.727 Unknown Unknown [id number] 2.16.840.1.171012.3.579. 2.531 Unknown [id number] 2.16.840.1.264274.3.579. 2.531 Unknown [id number] 2.16.840.1.679213.3.579. 2.531 Social History Date Type Detail Facility Start: 02-10-2023 End: 12-14-2023 No illicit drug use No illicit drug use [place] [address] DO Work Phone: Comment on above: quit 04-1995, 1 PPD; Start: 02-10-2023 End: 05-10-2024 Tobacco smoking status NHIS Ex-smoker [facility] Work Phone: End: 03-22-1992 History of tobacco use Current smoker [facility] Work Phone: End: 03-22-1992 History of tobacco use Cigarette Smoker [facility] Work Phone: Start: 10-11-2022 End: 02-10-2023 Tobacco use and exposure Smokeless tobacco non-user [facility] Work Phone: Start: 02-10-2023 End: 12-14-2023 Alcohol intake Lifetime non-drinker (finding) [facility] Work Phone: Start: 02-10-2023 End: 12-14-2023 Tobacco use panel [facility] Work Phone: Start: 1945 Sex Assigned At Not on file [facility] Work Phone: Start: 01-31-2023 End: 03-01-2024 Exposure to SARS-CoV-2 (event) Not sure [facility] Start: 10-11-2022 [facility] Tobacco smoking stat us NHIS Unknown if ever smoked [facility] Work Phone: Start: 03-30-2024 Sex Patient sex un known (finding) [facility] Start: 1945 Sex Assigned At Male [facility] Start: 05-13-2024 Sex Male (finding) [facility] Start: 05-11-2024 SDOH Follow up SDOH Follow up [facility] Work Phone: Goals Date Patient Goal Desired Activity /State Functional Status Date Assessment Result Facility 05-13-2024 Functional status Patient is Pro gressing Toward Baseline [facility] Work Phone: Mental Status Date Assessment Result Facility 05-13-2024 Cognitive function Cognitive Sta tus Patient at Baseline [facility] Work Phone: Clinical Notes 05-14-2022 to 05-13-2024 Note Date & Type Note Facility 05-13-2024 Progress note Note Date/Time May 13, 2024 12:49pm [facility] [address] [place], [place] [id number] Cardiology Progress Note Signed Patient: Leighton Arciniega MR#: [id number] : 1945 Acct:[id number] Age/Sex: 78 / M Adm Date: 5 Loc: 4 Room: [address] [place] [address] Type: ADM IN Attending Dr: Alexa Corona [...] few weeks has been admitted twice to [place] and was treated for pneumonia. The patient [...] discharge patient over the weekend to the [place] for recovery. His kidney function is unchanged [...] % (Auto) 68.7 Lymph % (Auto) 17.8 Coffee % (Auto) 7.9 Eos % (Auto) 5.3 Baso % (Auto) 0.3 Nucleat RBC Rel Count 0.0 Neut # (Auto) 4.3 Lymph # (Auto) 1.1 Coffee # (Auto) 0.5 Eos # (Auto) 0.3 [...] MPV Neut % (Auto) Lymph % (Auto) Coffee % (Auto) Eos % (Auto) Baso % (Auto) Nucleat RBC Rel Count Neut # (Auto) Lymph # (Auto) Coffee # (Auto) Eos # (Auto) Baso # [...] contrast-induced nephropathy, once stable Lexiscan MPI. Last [facility] was normal but was at [facility] in 2012. 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 3. Continue anticoagulation for now 4. Will see as needed. Please call with any questions. He will f/u with [facility] cardiology. Documented By: John Nettles MD 04/23 05/16 1236 Signed By: <Electronically signed by John Nettles MD> 05/13/24 1246 [facility] Work Phone: 1(355) 460-945302-22-2025 [place] [address] Cardiology Progress Note Signed Patient: Leighton Arciniega MR#: [id number] : 1945 Acct:[id number] Age/Sex: 78 / M Adm Date: 5 Loc: Room: [address] [place] [address] Type: ADM IN Attending Dr: Alexa Corona [...] few weeks has been admitted twice to [place] and was treated for pneumonia. The patient [...] to discharge patient overthe weekend to the [place] for recovery. His kidney function is unchanged [...] % (Auto) 68.7 Lymph % (Auto) 17.8 Coffee % (Auto) 7.9 Eos % (Auto) 5.3 Baso % (Auto) 0.3 Nucleat RBC Rel Count 0.0 Neut # (Auto) 4.3 Lymph # (Auto) 1.1 Coffee # (Auto) 0.5 Eos # (Auto) 0.3 [...] MPV Neut % (Auto) Lymph % (Auto) Coffee % (Auto) Eos % (Auto) Baso % (Auto) Nucleat RBC Rel Count Neut # (Auto) Lymph # (Auto) Coffee # (Auto) Eos # (Auto) Baso # [...] contrast-induced nephropathy, once stable Lexiscan MPI. Last [facility] was normal butwas at [facility] in 2012. 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 3. Continue anticoagulation for now 4. Will see as needed. Please call with any questions. He will f/u with [facility] cardiology. Documented By: John Nettles MD 04/23 05/16 1234 Signed By: 05/13/24 1249 [facility]02-21-2025 Progress note Author Rupert Rey [facility] Note Date/Time May 12, 2024 5:40pm [facility] [address] [place] [address] Cardiology Progress Note Signed Patient: Leighton Arciniega MR#: [id number] : 1945 Acct:[id number] Age/Sex: 78 / M Adm Date: 5 Loc: Room: [address] [place] [address] Type: ADM IN Attending Dr: Alexa Corona [...] few weeks has been admitted twice to [place] and was treated for pneumonia. The patient [...] discharge patient over the weekend to the [place] for recovery. His kidney function is unchanged [...] % (Auto) 71.7 Lymph % (Auto) 16.4 Coffee % (Auto) 6.8 Eos % (Auto) 4.5 Baso % (Auto) 0.6 Nucleat RBC Rel Count 0.1 Neut # (Auto) 4.3 Lymph # (Auto) 1.0 Coffee # (Auto) 0.4 Eos # (Auto) 0.3 [...] MPV Neut % (Auto) Lymph % (Auto) Coffee % (Auto) Eos % (Auto) Baso % (Auto) Nucleat RBC Rel Count Neut # (Auto) Lymph # (Auto) Coffee # (Auto) Eos # (Auto) Baso # (Auto) PHA Creatinine Clear Sodium Potassium Chloride Carbon Dioxide Anion Gap BUN Creatinine Est GFR (CKD-EPI) Glucose POC Glucose 63 91 214 POC Glucose Comment Calcium 05/12/24 16:26 Corrected WBC Uncorrected WBC Count RBC Hgb Hct MCV MCH MCHC RDW Plt Count MPV Neut % (Auto) Lymph % (Auto) Coffee % (Auto) Eos % (Auto) Baso % (Auto) Nucleat RBC Rel Count Neut # (Auto) Lymph # (Auto) Coffee # (Auto) Eos # (Auto) Baso # [...] as tolerated Documented By: Rupert Rey MD, [facility] 5 1733 Signed By: <Electronically signed by MD HARSHIL Rey> 05/12/24 1740 [facility] Work Phone: 1(272) 851-927802-21-2025 [place] [id number] Cardiology Progress Note Signed Patient: Leighton Arciniega MR#: [id number] : 1945 Acct:[id number] Age/Sex: 78 / M Adm Date: 5 Loc: Room: [address] [place] [address] Type: ADM IN Attending Dr: Alexa Corona [...] few weeks has been admitted twice to [place] and was treated for pneumonia. The patient [...] to discharge patient overthe weekend to the [place] for recovery. His kidney function is unchanged [...] % (Auto) 71.7 Lymph % (Auto) 16.4 Coffee % (Auto) 6.8 Eos % (Auto) 4.5 Baso % (Auto) 0.6 Nucleat RBC Rel Count 0.1 Neut # (Auto) 4.3 Lymph # (Auto) 1.0 Coffee # (Auto) 0.4 Eos # (Auto) 0.3 [...] MPV Neut % (Auto) Lymph % (Auto) Coffee % (Auto) Eos % (Auto) Baso % (Auto) Nucleat RBC Rel Count Neut # (Auto) Lymph # (Auto) Coffee # (Auto) Eos # (Auto) Baso # (Auto) PHA Creatinine Clear Sodium Potassium Chloride Carbon Dioxide Anion Gap BUN Creatinine Est GFR (CKD-EPI) Glucose POC Glucose 63 91 214 POC Glucose Comment Calcium 05/12/24 16:26 Corrected WBC Uncorrected WBC Count RBC Hgb Hct MCV MCH MCHC RDW Plt Count MPV Neut % (Auto) Lymph % (Auto) Coffee % (Auto) Eos % (Auto) Baso % (Auto) Nucleat RBC Rel Count Neut # (Auto) Lymph # (Auto) Coffee # (Auto) Eos # (Auto) Baso # [...] as tolerated Documented By: Rupert Rey MD, [facility] 5 1733 Signed By: 05/12/24 1740 [facility]02-21-2025 Progress note Author Alexa Corona [facility] Note Date/Time May 12, 2024 2:50pm [facility] [address] [place] [address] Hospitalist Progress Note Signed Patient: Leighton Arciniega MR#: [id number] : 1945 Acct:[id number] Age/Sex: 78 / M Adm Date: 5 Loc: Room: [address] [place] [address] Type: ADM IN Attending Dr: Alexa Corona [...] Laboratory work up and Imaging studies reviewed surveillance system monitor - reviewed Exam Physical Exam Vital [...] hypoxic respiratory failure requiring BiPAP administration at [facility], improving with diuretic therapy, currently downgraded to 6 L nasal cannula, now to 4, I do suspect due to acute systolic congestive heart failure with ejection fraction 20% as per reports from [facility], echocardiogram pending For now I [...] urinary retention during last admission at the [place], he does have appointment with urologist, will keep it in Documented By: Alexa Corona MD 05/12/24 5441 Signed By: <Electronically signed by Alexa Corona MD> 05/12/24 9276 [facility] Work Phone: 1(994) 249-467102-21-2025 [place] [address] Hospitalist Progress Note Signed Patient: Leighton Arciniega MR#: [id number] : 1945 Acct:[id number] Age/Sex: 78 / M Adm Date: 5 Loc: Room: [address] [place] [address] Type: ADM IN Attending Dr: Alexa Corona [...] Laboratory work up and Imaging studies reviewed surveillance system monitor - reviewed Exam Physical Exam Vital [...] hypoxic respiratory failure requiring BiPAP administration at [facility], improving with diuretic therapy, currently downgraded to 6 L nasal cannula, now to 4, I do suspect due to acute systolic congestive heart failure with ejection fraction 20% as per reports from [facility], e chocardiogram pending For now [...] urinary retention during last admission at the [place], he does haveappointment with urologist, will keep it in Documented By: Alexa Corona MD 05/12/24 1449 Signed By: 05/12/24 1450 [facility]02-20-2025 Progress note Author Alexa Corona [facility] Note Date/Time May 11, 2024 12:27pm [facility] [address] [place] [address] Hospitalist Progress Note Signed Patient: Leighton Arciniega MR#: [id number] : 1945 Acct:[id number] Age/Sex: 78 / M Adm Date: 5 Loc: Room: [address] [place] [address] Type: ADM IN Attending Dr: Alexa Corona [...] Laboratory work up and Imaging studies reviewed surveillance system monitor - reviewed Exam Physical Exam Vital [...] hypoxic respiratory failure requiring BiPAP administration at [facility], improving with diuretic therapy, currently downgraded to 6 L nasal cannula, now to 4, I do suspect due to acute systolic congestive heart failure with ejection fraction 20% as per reports from [facility], echocardiogram pending For now I [...] signed by Alexa Corona MD> 05/11/24 1227 [facility] Work Phone: 1(394) 768-789002-20-2025 Progress note Author Rupert Rey [facility] Note Date/Time May 11, 2024 12:22pm [facility] [address] [place] [address] Cardiology Progress Note Signed Patient: Leighton Arciniega MR#: [id number] : 1945 Acct:[id number] Age/Sex: 78 / M Adm Date: 5 Loc: 4 Room: 4W4290-6 Type: ADM IN Attending Dr: Alexa Corona [...] few weeks has been admitted twice to [place] and was treated for pneumonia. The patient [...] MPV Neut % (Auto) Lymph % (Auto) Coffee % (Auto) Eos % (Auto) Baso % (Auto) Nucleat RBC Rel Count Neut # (Auto) Lymph # (Auto) Coffee # (Auto) Eos # (Auto) Baso # [...] % (Auto) 78.1 Lymph % (Auto) 11.7 Coffee % (Auto) 6.8 Eos % (Auto) 3.3 Baso % (Auto) 0.1 Nucleat RBC Rel Count 0.1 Neut # (Auto) 5.2 Lymph # (Auto) 0.8 L Coffee # (Auto) 0.5 Eos # (Auto) 0.2 [...] MPV Neut % (Auto) Lymph % (Auto) Coffee % (Auto) Eos % (Auto) Baso % (Auto) Nucleat RBC Rel Count Neut # (Auto) Lymph # (Auto) Coffee # (Auto) Eos # (Auto) Baso # [...] failure therapy Documented By: Rupert Rey MD, [facility] 5 1217 Signed By: <Electronically signed by [facility] Rupert Rey> 05/11/24 1222 [facility] Work Phone: 1(776) 180-737102-20-2025 [place] [address] Hospitalist Progress Note Signed Patient: Leighton Arciniega MR#: [id number] : 1945 Acct:[id number] Age/Sex: 78 / M Adm Date: 5 Loc: Room: [address] [place] [address] Type: ADM IN Attending Dr: Alexa Corona [...] Laboratory work up and Imaging studies reviewed surveillance system monitor - reviewed Exam Physical Exam Vital [...] hypoxic respiratory failure requiring BiPAP administration at [facility], improving with diuretic therapy, currently downgraded to 6 L nasal cannula, now to 4, I do suspect due to acute systolic congestive heart failure with ejection fraction 20% as per reports from [facility], e chocardiogram pending For now [...] MD 05/11/24 1224 Signed By: 05/11/24 1227 [facility]02-20-[address] [address] Cardiology Progress Note Signed Patient: Leighton Arciniega MR#: [id number] : 1945 Acct:[id number] Age/Sex: 78 / M Adm Date: 5 Loc: Room: [address] [place] [address] Type: ADM IN Attending Dr: Alexa Corona [...] few weeks has been admitted twice to [place] and was treated for pneumonia. The patient [...] MPV Neut % (Auto) Lymph % (Auto) Coffee % (Auto) Eos % (Auto) Baso % (Auto) Nucleat RBC Rel Count Neut # (Auto) Lymph # (Auto) Coffee # (Auto) Eos # (Auto) Baso # [...] % (Auto) 78.1 Lymph % (Auto) 11.7 Coffee % (Auto) 6.8 Eos % (Auto) 3.3 Baso % (Auto) 0.1 Nucleat RBC Rel Count 0.1 Neut # (Auto) 5.2 Lymph # (Auto) 0.8 L Coffee # (Auto) 0.5 Eos # (Auto) 0.2 [...] MPV Neut % (Auto) Lymph % (Auto) Coffee % (Auto) Eos % (Auto) Baso % (Auto) Nucleat RBC Rel Count Neut # (Auto) Lymph # (Auto) Coffee # (Auto) Eos # (Auto) Baso # [...] failure therapy Documented By: Rupert Rey MD, [facility] 5 1217 Signed By: 05/11/24 1222 [facility]02-19-2025 Consult note Author Osvaldo Dickinson [facility] Note Date/Time May 10, 2024 6:30pm [facility] [address] [place] [address] Cardiology Consult Note Signed Patient: Leighton Arciniega MR#: [id number] : 1945 Acct:[id number] Age/Sex: 78 / M Adm Date: 5 Loc: 4 Room: [address] [place] [address] Type: ADM IN Attending Dr: Alexa Corona [...] few weeks has been admitted twice to [place] and was treated for pneumonia. The patient [...] denies chest pain. He described mild arthritis [facility] Medical History COPD (chronic obstructive pulmonary disease) [...] Lymph # (Auto) 0.6 L (1.00-4.8) x10E3/uL Coffee # (Auto) 0.3 (0.0-0.8) x10E3/uL Eos # [...] heart failure. Chart suggestto recent echocardiogram at [place] initially showed ejection fraction around 55% while [...] failure Documented By: Osvaldo Dickinson MD 05/10/24 5740 Signed By: <Electronically signed by MD Osvaldo Dickinson> 05/10/24 1830 [facility] Work Phone: 1(456) 364-484602-19-2025 [place] [address] Cardiology Consult Note Signed Patient: Leighton Arciniega MR#: [id number] : 1945 Acct:[id number] Age/Sex: 78 / M Adm Date: 5 Loc: Room: [address] [place] [address] Type: ADM IN Attending Dr: Alexa Corona [...] few weeks has been admitted twice to [place] and was treated for pneumonia. The patient [...] denies chest pain. He described mild arthritis [facility] Medical History COPD (chronic obstructive pulmonary disease) [...] Lymph # (Auto) 0.6 L (1.00-4.8) x10E3/uL Coffee # (Auto) 0.3 (0.0-0.8) x10E3/uL Eos # [...] heart failure. Chart suggestto recent echocardiogram at [place] initially showed ejection fraction around 55% while [...] Dickinson MD 05/10/241816 Signed By: 05/10/24 1830 [facility]02-19-2025 Progress note Author Alexa Corona [facility] Note Date/Time May 10, 2024 12:51pm [facility] [address] [place] [address] Hospitalist Progress Note Signed Patient: Leighton Arciniega MR#: [id number] : 1945 Acct:[id number] Age/Sex: 78 / M Adm Date: 5 Loc: Room: [address] [place] [address] Type: ADM IN Attending Dr: Alexa Corona [...] Laboratory work up and Imaging studies reviewed surveillance system monitor - reviewed Exam Physical Exam Vital [...] hypoxic respiratory failure requiring BiPAP administration at [facility], improving with diuretic therapy, currently downgraded to 6 L nasal cannula, now to 4, I do suspect due to acute systolic congestive heart failure with ejection fraction 20% as per reports from [facility] For now I will continue [...] Eliquis Documented By: Alexa Corona MD 05/10/24 1249 Signed By: <Electronically signed by Alexa Corona MD> 05/10/24 1259 [facility] Work Phone: 1(860) 343-368402-19-2025 [place] [address] Hospitalist Progress Note Signed Patient: Leighton Arciniega MR#: [id number] : 1945 Acct:[id number] Age/Sex: 78 / M Adm Date: 5 Loc: Room: [address] [place] [address] Type: ADM IN Attending Dr: Alexa Corona [...] Laboratory work up and Imaging studies reviewed surveillance system monitor - reviewed Exam Physical Exam Vital [...] hypoxic respiratory failure requiring BiPAP administration at [facility], improving with diuretic therapy, currently downgraded to 6 L nasal cannula, now to 4, I do suspect due to acute systolic congestive heart failure with ejection fraction 20% as per reports from [facility] For now I will continue [...] DVT prophylaxis already on Eliquis Documented By: Aelxa Corona MD 05/10/24 1248 Signed By: 05/10/24 1251 [facility]02-18-2025 History and physical note Author Alexa Corona [facility] Note Date/Time May 09, 2024 9:08pm [facility] [address] [place] [address] Hospitalist H&P Signed Patient: Leighton Arciniega MR#: [id number] : 1945 Acct:[id number] Age/Sex: 78 / M Adm Date: 5 Loc: 4 Room: [id number] Type: ADM IN Attending Dr: Devan Drake MD Copies to: MD Devan Love MD Ruta Semaskiene, MD~ HPI DATE OF EXAMINATION: 05/09/24 HISTORY OF PRESENT ILLNESS: 78 Years old male transferred from [place] with shortness of breath. 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 General -patient is awake alert oriented ?3, [...] Previous records in the computer system reviewed [facility] Medical History (Updated 05/09/24 @ 21:08 by [...] ejection fraction 20% as perreports from [facility] For now I will continue with Bumex drip, strict input and output, recheck kidneyfunction in a.m., today labs reviewed from [facility] Consult cardiology due to systolic heart [...] <Electronically signed by Alexa Corona MD> 05/09/242107 [facility] Work Phone: 1(275) 684-350502-18-2025 Evaluation note* Diagnosis Onset Date Resolution Status Admit Date CHF (congestive heart failure) acute May 09, 7:47pm Chronic kidney disease acute Fe bruary 2024 7:47pm Pacemaker acute May 09, 2024 7:47pm Sick sinus syndrome acute Febru rhea 2024 7:47pm [facility] Work Phone: 1(604) 608-724602-18-2025 [place] [address] Hospitalist H&P Signed Patient: Leighton Arciniega MR#: [id number] : 1945 Acct:[id number] Age/Sex: 78 / M Adm Date: 5 Loc: Room: [address] [place] [address] Type: ADM IN Attending Dr: Devan Drake MD Copies to: MD Devan Love MD Ruta Semaskiene, MD~ HPI DATE OF EXAMINATION: 05/09/24 HISTORY OF PRESENT ILLNESS: 78 Years old male transferred from [place] with shortness of breath. 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 General -patient is awake alert oriented ?3, [...] Previous records in the computer system reviewed [facility] Medical History (Updated 05/09/24 @ 21:08 by [...] ejection fraction 20% as perreports from [facility] For now I will continue with Bumex drip, strict input and output, recheck kidneyfunction in a.m., today labs reviewed from [facility] Consult cardiology due to systolic heart [...] Alexa Corona MD 05/09/242051 Signed By: 05/09/242107 [facility]02-05-2025 NotePatient Education Urology Indwelling Urinary Catheter Insertion [...] provider. Document Revised: 11/05/2021 Document Reviewed: 11/05/2021 [employer] Patient Education ? 2023 [employer] 04-12-2024 NotePatient Education Urology Benign Prostatic [...] Follow these instructions at home: ??? Take phgp-pwh-bvskion and prescription medicines only as told by [...] symptoms do not get (more content not included)...[facility]12-12-2024 NotePatient Education Urology Acute Urinary Retention, [...] these instructions at home: Medicines ??? Take fmsc-yag-gkhqwdy and prescription medicines only as told by [...] provider. Document Revised: 11/27/2020 Document Reviewed: 11/27/2020 [employer] Patient Education ? 2023 [employer] 03-01-2024 History of Present illness Narrative* [...] to retrieve his recent lab work from [facility] 5. I will see him back [...] exam, discussion and plan. documented in this [facility] Work Phone: 1(820) 449-829212-11-2024 Instructions* Patient Instructions* Betzaida Denney LPN - [...] Provided instructions on exercise. documented in this [facility] Work Phone: 1([phone]) 820-373311-25-2024 NotePatient Education Rezum Post-Procedure Instructions General Recommendations [...] to the c (more content not included)... [facility]11-11-2024 NotePatient Education Urology Acute Urinary Retention, [...] these instructions at home: Medicines ??? Take wmjc-ckd-qdgsydf and prescription medicines only as told by [...] provider. Document Revised: 11/27/2020 Document Reviewed: 11/27/2020 [employer] Patient Education ? 2023 [employer] Benign Prostatic Hyperplasia Benign prostatic hyperplasia (BPH) is an enlarged prostate gland that is caused by the normal agingproc (more content not included)...[facility]10-28-2024 History of Present illness Narrative* Blanca [...] given intertriginous involvement, topical steroids contraindicated for senior care use in this area and he has [...] Next Visit: 1 year documented in this encounterTexas [facility] [id number] NoteProgress Note-Physician Patient: LEIGHTON ARCINIEGA Age: 78 [...] day(s), # 6 tab(s), Refills(s) 0, Pharmacy: [facility] #[id number], 177, cm, 12/27/23 11:02:00 EDT, Height/Length Dosing, 104, kg, 12/27/23 11:02:00 EDT, Weight Dosing Kunia 325 mg-5 mg oral tablet: 1 tab(s), Oral, q6hr for pain, 4 tab(s), Refill(s) 0, Take 1 tablet an hour before procedure, post procedure prn, [facility] #[id number], 177, cm, 12/27/23 11:02:00 EDT, Height/Length Dosing, 104, kg, 12/27/23 11:02:00 EDT, Weight Dosing sildenafil 100 mg Tab: 100 mg = 1 tab(s), Oral, As Directed, PRN for erectile dysfunction, Take onetab 1 hour prior to sexual activity., # 30 tab(s), Refills(s) 3, Pharmacy: [facility] #[id number], 177.8, cm, 06/16/23 10:18:00 EDT, Height/Length Dosing, 104.8, kg, 06/16/23 10:18:... terazosin 10 mg Cap: 10 mg = 1 cap(s), Oral, Once a day (at bedtime), # 90 cap(s), Refills(s) 3, Pharmacy: [facility], 177, cm, 12/27/23 11:02:00 EDT, Height/Length Dosing, 104, kg, 12/27/23 11:02:00 EDT, Weight Dosing traMADOL 50 mg Tab: 50 mg = 1 tab(s), Oral, q6hr, Take as needed for pain., # 6 tab(s), Refills(s) 0, Pharmacy: [facility] #[id number], 177.8, cm, 11/12/23 15:35:00 EDT, Height/Length Dosing, [...] Plan: Diagnosis: Prostate hyperplasia with urinary obstruction (HPU57-WK N40.1, Discharge, Medical), Feeling of incomplete bladder emptying (LLX40-BX R39.14, Working, Medical), Anticoagulated (EMH63-CP Z79.01, Discharge, Medical). 78 yo male here [...] and Valium prior to procedure. 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 The procedural risks, benefits, details, and treatment alternatives have been discussed with the patient. These include bleeding, infection, continued problems urinating, increased frequency with urgency during the healing process, painful urination, need for indwelling cathete (more content not included)... [facility] HospitalComment on above:Result Comment: Electronically Signed By: [...] if you have a fever over 100 degrees.[facility] 12-14-2023 History of Present illness Narrative* [...] (hypertension) (CMS/HCC) Hx of psoriasis Kidney disease OK (myocardial infarction) (CMS/HCC) VIRGILIO (obstructive sleep apnea) [...] was counselled on the risk of stroke, OK, and sudden with VIRGILIO, along with the [...] instructions Return to clinic: documented in this encounterTexas County Memorial [id number] NotePatient Education Urology Benign Prostatic Hyperplasia Benign [...] Follow these instructions at home: ? Take xfbl-jiw-rmyshnb and prescription medicines only as told by [...] You develop side effec (more content not included)...[facility]07-25-2024 NoteED Patient Education Note Orthopedics Acute [...] under your knee. General instructions ? Take hqul-hge-mayykwt and prescription medicines only as told by [...] provider. Document Revised: 08/21/2020 Document Reviewed: 08/21/2020 [employer] Patient Education ? 2022 [employer] 08-25-2023 History of Present illness Narrative* [...] exam, discussion and plan. [facility] Work Phone: 1([phone]) [phone] Instructions* Patient Instructions* Jo Ann Ferrer CMA [...] time of your visit. [facility] Work Phone: 1(113) 171-722311-22-2023 History of Present illness Narrative* Varghese Caal [...] on recent pacemaker checks. [facility] Work Phone: 1([phone]) 478-855911-22-2023 Instructions* Patient Instructions* Alize James LPN - [...] follow up per routine [facility]Ohio [facility] Work Phone: [phone] NotePROCEDURE: XR KNEE LT 4V or > [...] Electronically authenticated by: JOE DU Date: 2022-05-14 18:40[facility]* Diagnosis Sick sinus syndrome (CMS/HCC)- Primary [...] neoplasm of skin documented in this encounter [facility] HomeEvaluation note* Diagnosis Paroxysmal atrial fibrillation (Multi)- Primary [...] and respiratory abnormality documented in this encounter [facility] HealthcareEvaluation noteNo assessment information availableProtestant Hospital Work Phone: History of Present illness [...] on the basis of his improve lifestyle modification.-[facility]Sergio 250 DO Work Phone: History [...] the merits of diet and weight loss. 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 [facility] Work Phone: Reason for referral (narrative)* Consultation (Routine) - Authorized Specialty Diagnoses / Procedures Referred By Elida t Referred To Contact Cardiology Diagnoses Sick sinus syndrome ([facility]) Procedures Follow Up In Cardiology Varghese Cala MD 3 [facility] 2, [address] [address] Varghese Caal MD [address] [facility] 2, [address] [place] [address] Referral ID Status Reason Start Date Expiration Date V isits Requested Visits Authorized [id number] Authorized 02/10/2023 02/10/2024 1 1 [facility] Work Phone: Reason for referral (narrative)* Consultation (Routine) - Authorized Specialty Diagnoses / Procedures Referred By Contac t Referred To Contact Cardiology Diagnoses Sick sinus syndrome (Multi) Procedures Follow Up In Cardiology Varghese Caal MD [address] [facility] 2, [address] [place] [id number] Osvaldo Dickinson MD [address] [place] [address] 2, [address] [place] [address] Referral ID Status Reason Start Date Expiration Date V isits Requested Visits Authorized [id number] Authorized 08/25/2023 08/24/2024 1 1 [facility] [...] content) DATE CREATED AUTHOR 06/01/2022 [facility] DATE CREATED AUTHOR AUTHOR'S ORGANIZ ATION 07/03/2022 [employer] DATE CREATED AUTHOR AUTHOR'S ORGANIZ ATION 11/05/2022 [facility] DATE CREATED AUTHOR AUTHOR'S ORGANIZ ATION 01/18/2024 [facility] EPIC DATE CREATED AUTHOR AUTHOR'S ORGANIZ ATION 02/21/2024 [facility] DATE CREATED AUTHOR AUTHOR'S ORGANIZ ATION 03/04/2024 [facility] DATE CREATED AUTHOR AUTHOR'S ORGANIZ ATION 04/02/2024 [facility] DATE CREATED AUTHOR AUTHOR'S ORGANIZ ATION 04/07/2024 [facility] DATE CREATED AUTHOR AUTHOR'S ORGANIZ ATION 04/28/2024 [facility] DATE CREATED AUTHOR AUTHOR'S ORGANIZ ATION 05/13/2024 [facility] DATE CREATED AUTHOR AUTHOR'S ORGANIZ ATION 05/17/[address] [facility] ical Center Reason for Visit (unrecogniz ed section and content) Reason Comments Follow-up 6-9mo Reason Comments Follow-up 6-9 months Specialty Diagnoses / Procedures Referred By Elida gifford Referred To Contact Cardiology Diagnoses Sick sinus syndrome (Multi) Procedures Follow Up In Cardiology Varghese Caal MD [address] [place] [address] [address], [address] [address] Varghese Caal MD [address] [place] [address] [address], [address] [address] Referral ID Status Reason Start Date Expiration Date V isits Requested Visits Authorized [id number] Authorized 02/10/2023 02/10/2024 1 1 Reason Comments Skin Check Follow-up Reason Comments Follow-up 6-9 months Specialty Diagnoses / Procedures Referred By Contac t Referred To Contact Cardiology Diagnoses Sick sinus syndrome (Multi) Procedures Follow Up In Cardiology Varghese Caal MD Traboulssi, Mourhaf, MD [address] [place] [address] [address], [address] [address] Phone: tel: fax: Referral ID Status Reason Start Date Expiration Date V isits Requested Visits Authorized [id number] Authorized 08/25/2023 08/24/2024 1 1 Reason Comments [...] 2024 End: May 13, 2024 Sanaz Stewart [facility]- Other Provider Active Sta rt: May 09, 2024 End: May 13, 2024 Team Status: Active Member Role Status Dates Lori Medina MD Primary Care Provider Active Start: May 13, 2024 Alexa Corona MD Admit Provider, [facility] er Provider Active Start: May 13, [...] Active Start: ebruary 2024 Sanaz Stewart , [facility]- Other Provider Active Sta rt: May 13, 2024 John Nettles MD Attending Provider Active Start: April Welfare Director Relationship Specialty Start Date End Date DemarcusAndrea biswas DO [address] [place] [address] PCP - General 03/22/99 Welfare Director Relationship Specialty Start Date End Date DemarcuszulayAndrea DO [facility] [place] [address] PCP - General 03/22/99 Welfare Director Relationship Specialty Start Date End Date Lori Medina MD [address] [place] [address] PCP - General Family Medicine 10/09/22 Welfare Director Relationship Specialty Start Date End Date DemarcuszulayAndrea DO [facility] [place] [address] PCP - General 03/22/99 Welfare Director Relationship Specialty Start Date End Date Lori Medina MD [address] [place] [address] PCP - General Family Medicine 10/09/22 Welfare Director Relationship Specialty Start Date End Date Lori Medina MD [address] [place] [address] PCP - General Family Medicine 10/09/22 Goals [...] BE BASED ON THE PRIMARY CLINICAL RECORDS. [place] provides no warranty or guarantee of the accuracy or completeness of information in this document.
[2024-05-19] MEDS: OMEPRAZOLE 20 MG CAPSULE.DR PO (06:22)
--- NOTE | 2024-05-19 08:12 | P.HP_ITS ---
HPI H&P: HPI History of Present Illness Chief complaint: CHF AND UTI Narrative: Patient seen and evaluated in the emergency room with increasing fever, cough, shortness of breath, found to have acute combined congestive heart failure, possible pneumonia although difficult to assess secondary to the volume of fluid on lungs, and acute UTI. When I saw patient up in the medical surgical floor, resting fairly comfortably bed does have conversational dyspnea pressure for him, is up to 6 L of supplemental oxygen currently Opioid HPI Opioid Management Most Recent Pain and Opioid Data: Last Pain Scale 0 05/05/24 09:03 05/05/24 Last Pain Intensity 0 05/05/24 10:47 05/05/24 Last Pain Assessment 05/19/24 08:05 Last ORT Total Score 0 05/19/24 00:55 05/19/24 Last ORT Risk Category Low Risk 05/19/24 00:55 05/19/24 Review of Systems ROS Status of ROS 10 or more systems reviewed and unremark able except as noted in history and below [facility] Medical History (Updated 05/19/24 @ 00:41 by Dacia Rene MD) Hypoxia ?R09.02 - Hypoxemia (ICD-10) Congestive heart failure ?I50.9 - Heart failure, unspecified (ICD-10) Pneumonia ?J18.9 - Pneumonia, unspecified organism (ICD-10) Acute respiratory distress ?R06.03 - Acute respiratory distress (ICD-10) Pneumonia ?J18.9 - Pneumonia, unspecified organism (ICD-10) Acute on chronic diastolic (congestive) heart failure ?I50.33 - Acute on chronic diastolic (congestive) heart failure (ICD-10) Hospital acquired PNA ?J18.9 - Pneumonia, unspecified organism (ICD-10) ?Y95 - Nosocomial condition (ICD-10) Shortness of breath ?R06.02 - Shortness of breath (ICD-10) Congestive heart failure ?I50.9 - Heart failure, unspecified (ICD-10) Pneumonia ?J18.9 - Pneumonia, unspecified organism (ICD-10) Severe sepsis ?A41.9 - Sepsis, unspecified organism (ICD-10) ?R65.20 - Severe sepsis without septic shock (ICD-10) COPD exacerbation ?J44.1 - Chronic obstructive pulmonary disease with (acute) exacerbation (ICD-10) Acute exacerbation of chronic heart failure ?I50.9 - Heart failure, unspecified (ICD-10) Acute hypoxemic respiratory failure ?J96.01 - Acute respiratory failure with hypoxia (ICD-10) Acute kidney injury ?N17.9 - Acute kidney failure, unspecified (ICD-10) Bladder spasm ?N32.89 - Other specified disorders of bladder (ICD-10) Urinary tract infection ?N39.0 - Urinary tract infection, site not specified (ICD-10) Urinary tract infection ?N39.0 - Urinary tract infection, site not specified (ICD-10) Failure of outpatient treatment ?Z78.9 - Other specified health status (ICD-10) Urinary tract infection ?N39.0 - Urinary tract infection, site not specified (ICD-10) Skin cancer ?C44.90 - Unspecified malignant neoplasm of skin, unspecified (ICD-10) Myocardial infarction ?I21.9 - Acute myocardial infarction, unspecified (ICD-10) Pacemaker ?Z95.0 - Presence of cardiac pacemaker (ICD-10) CKD (chronic kidney disease) ?N18.9 - Chronic kidney disease, unspecified (ICD-10) CAD (coronary artery disease) ?I25.10 - Atherosclerotic heart disease of [place] coronary artery without angina pectoris (ICD-10) A-fib ?I48.91 - Unspecified atrial fibrillation (ICD-10) Erectile dysfunction ?N52.9 - Male erectile dysfunction, unspecified (ICD-10) UTI (urinary tract infection) ?N39.0 - Urinary tract infection, site not specified (ICD-10) GERD (gastroesophageal reflux disease) ?K21.9 - Gastro-esophageal reflux disease without esophagitis (ICD-10) Hypertension ?I10 - Essential (primary) hypertension (ICD-10) Diabetes ?E11.9 - Type 2 diabetes mellitus without complications (ICD-10) Surgical History History of arthroscopic knee surgery ?Z98.890 - Other specified postprocedural states (ICD-10) Hx of tonsillectomy ?Z90.89 - Acquired absence of other organs (ICD-10) Family History Mother Family history of CHF (congestive heart failure) Family history of myocardial infarction Family history of hypertension Family history of diabetes mellitus Family history of COPD (chronic obstructive pulmonary disease) Grandmother Family history of CHF (congestive heart failure) Brother Family history of CHF (congestive heart failure) Family history of myocardial infarction Family history of hypertension Family history of COPD (chronic obstructive pulmonary disease) Father Kidney failure Social History Within the past year, how often did you have a drink containing alcohol: never Score interpretation: A score less than 4 is consistent with normal alcohol consumption. Smoking status: Former smoker Non-prescribed substance use: denies use Known occupational exposures/hazards: No Highest level of school completed/degree received: some college, no degree Do you want help with school or training: No Little interest or pleasure in doing things: not at all Feeling down, depressed, or hopeless: not at all Gender Identity: male Meds Home Medications and Allergies Home Medications ?Medication ?Instructions ?Recorded ?Confirmed ?Type acetaminophen 500 mg capsule 1,000 mg PO Q6H PRN fever or pain 02/26/24 05/18/24 History allopurinol 300 mg tablet 300 mg PO DAILY 02/26/24 05/18/24 History apixaban 5 mg tablet (Eliquis) 5 mg PO Q12H 02/26/24 05/18/24 History aspirin 81 mg tablet,delayed 81 mg PO .weekly 02/26/24 05/18/24 History release (Adult Aspirin Regimen) calcium 315 mg (as 1 tab PO DAILY 02/26/24 05/18/24 History citrate)-vitamin D3 5 mcg (200 unit) tablet (Calcium Citrate + D) carvedilol 6.25 mg tablet 6.25 mg PO Q12H 02/26/24 05/18/24 History cyanocobalamin (vitamin B-12) 1,000 mcg PO DAILY 02/26/24 05/18/24 History 1,000 mcg tablet (Vitamin B-12) hydralazine 50 mg tablet 100 mg PO Q8H 02/26/24 05/19/24 History multivitamin (Daily Multi-Vitamin 1 tab PO DAILY 02/26/24 05/19/24 History tablet) omeprazole 20 mg capsule,delayed 20 mg PO DAILY 02/26/24 05/19/24 History release semaglutide 1 mg/dose (4 mg/3 mL) 1 mg subcut QWEEK 02/26/24 05/19/24 History subcutaneous pen injector (Ozempic) simvastatin 20 mg tablet 20 mg PO DAILY 02/26/24 05/19/24 History spironolactone 25 mg tablet 25 mg PO DAILY 02/26/24 05/19/24 History terazosin 10 mg capsule 10 mg PO BEDTIME 02/26/24 05/19/24 History finasteride 5 mg tablet 5 mg PO DAILY 05/03/24 05/18/24 History albuterol sulfate 2.5 mg/3 mL 2.5 mg (3 mL) inhalation Q4H PRN 05/06/24 05/18/24 Rx (0.083 %) solution for nebulization bronchospasm #90 mL bumetanide 0.5 mg tablet 1.5 mg PO DAILY 05/19/24 05/19/24 History insulin aspart U-100 100 unit/mL 1 sliding scale dose subcut ACHS 05/19/24 05/19/24 History (3 mL) subcutaneous pen (Novolog FlexPen U-100 Insulin aspart) insulin glargine 100 unit/mL (3 8 unit subcut .q hs 05/19/24 05/19/24 History mL) subcutaneous pen (Lantus Solostar U-100 Insulin) insulin glargine 100 unit/mL (3 18 unit subcut QAM 05/19/24 05/19/24 History mL) subcutaneous pen (Lantus Solostar U-100 Insulin) isosorbide mononitrate 30 mg 30 mg PO QAM 05/19/24 05/19/24 History tablet,extended release 24 hr potassium chloride 10 mEq 10 meq PO QAM 05/19/24 05/19/24 History tablet,extended release Allergies Allergy/AdvReac Type Severity Reaction Status Date / Time fosinopril (From Monopril) Allergy Severe shortness Verified 05/18/24 22:15 of breath metoprolol Allergy Severe shortness Verified 05/18/24 22:15 of breath strawberry Allergy Severe Rash Verified 05/18/24 22:15 Exam Constitutional Vital Signs, click to edit/add: Last Vital Signs Temp 97.9 F 05/19/24 08:02 Pulse 80 05/19/24 08:02 Resp 20 05/19/24 07:28 BP 124/78 05/19/24 08:02 Pulse Ox 90 L 05/19/24 08:02 O2 Del Method Nasal Cannula 05/19/24 08:02 O2 Flow Rate 6 05/19/24 07:25 Documenting provider has reviewed patient's vital signs: yes Common normals: apparent distress (Moderate conversational dyspnea) Chest Common normals: inspection of chest normal Respiratory Common normals: abnormal respiratory effort (Moderate conversational dyspnea) Auscultation: rales, rhonchi and egophony left lower and right lower Cardio Common normals: regular rate and regular rhythm Extremity Common normals: abnormal to inspection (3+ edema) Results Labs Labs: Short CBC 05/18/24 05/19/24 Range/Units 22:19 05:32 WBC 9.5 8.2 (4.0-11.0) 10^3/uL Hgb 8.4 L 7.8 L (14.0-18.0) g/dL Hct 25.1 L 23.6 L* (42.0-54.0) % Plt Count 138 L 117 L (150-450) 10^3/uL BMP 05/18/24 05/19/24 22:19 05:32 Sodium 133 L 135 L Potassium 3.9 3.6 Chloride 98 102 Carbon Dioxide 25.4 24.5 BUN 39.0 H 41.0 H Creatinine 1.74 H 1.71 H Glucose 237 H 270 H Calcium 8.1 L 8.0 L Liver Function 05/18/24 Range/Units 22:19 Total Bilirubin 0.5 (0.2-1.0) mg/dL AST 14 L (15-37) U/L ALT 21 (16-63) U/L Alkaline Phosphatase 71 (46-116) U/L Albumin 2.0 L (3.4-5.0) g/dL Urine 05/18/24 Range/Units 22:55 Urine Color Lt. yellow (YELLOW) Urine Clarity Cloudy A (CLEAR) Urine pH 5.5 (5.0-9.0) Ur Specific [place] 1.010 (1.005-1.025) Urine Protein 100 A (NEG/TRACE) mg/dL Urine Glucose (UA) 100 A (NEGATIVE) mg/dL ABG ABG results: 05/18/24 22:35 ABG pH 7.508 H* ABG pCO2 31.8 L ABG pO2 55.8 L* ABG HCO3 25.2 ABG O2 Saturation 92.3 ABG Base Excess 2.2 H Assessment and Plan Assessment and Plan (1) Fever: (2) Acute UTI: (3) CHF (congestive heart failure): (4) Acute respiratory distress: (5) Hospital acquired PNA: (6) COPD exacerbation: (7) Bladder spasm: (8) Urinary tract infection: Plan Admission findings: Fever, sinus tachycardia, respiratory distress, acute hypoxia with O2 sat of 85% on 4 L, respiratory alkalosis, metabolic alkalosis, acute combined congestive heart failure on top of chronic combined congestive heart failure complicated gated by acute UTI and acute pneumonia complicated by acute exacerbation of COPD, leading this is sepsis, not severe, unable to give aggressive fluid resuscitation secondary to the acute combined congestive heart failure Acute hypoxic respiratory failure with severe hypoxia with O2 sat of 85% on 4 L, acute pneumonia, white blood cell count normal but significant left shift consistent with bacterial process and hospital-acquired, complicated by acute exacerbation of COPD leading to sepsis leading to respiratory and metabolic alkalosis-IV antibiotics, aerosol treatments, hold off on steroids secondary to diabetes Acute combined congestive heart failure complicated by a history of 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, last echo was about 20%.-Bumex drip this morning, added albumin as patient has severe protein calorie malnutrition from, troponin negative holding off on checking BNP secondary to it always being over 35,000 Acute UTI-history of this in the past, history of fungal infection in the past, culture pending, this is a complication of procedure as he had a cystoscopy done the day prior to admission-culture pending, continue with current antibiotics for above should cover both Severe hypomagnesemia-bolus this morning and oral supplementation Severe protein calorie malnutrition-diet management as well as IV albumin this morning which should help assist with diuresis for the acute combined congestive heart failure Hypertension-continue with medications Diabetes mellitus-continue with long-acting insulin and insulin sliding scale GERD with possible acute anemia-change patient to IV Protonix and check stool for occult blood BPH with chronic indwelling Gomez complicating the acute UTI as outlined above Hypercholesterolemia continue with home medications Atrial fibrillation by history-maintain anticoagulation Gout-maintain current dosing for allopurinol Admission status: Patient admitted with healthcare acquired pneumonia complicated by acute combined congestive heart failure leading to exacerbation of 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 Inpatient status. Urinary Catheter Management Urinary Catheter Management 2-way Urethral: Cath placed during this visit: no
--- NOTE | 2024-05-19 09:23 | SWNOTE1 ---
DARRIUS reached out to [facility] at [facility] and pt is there skilled. SW stopped in and spoke with pt and daughter in room. Daughter had a form from [facility] in regards to bed hold. Pt and daughter voiced they are not paying to hold the bed. Daughter would like SW to find out if they have a bed for him and if not then [facility]. SW reached back out to [facility] and she stated he is traditional Medicare and they do not have a referral for his bed at this time so they will take him back. DARRIUS let pt and daughter know. DARRIUS sent updates to [facility]. Updates included ED note, H&P, face sheet, vitals, labs, and nursing notes.
[2024-05-19] MEDS: BUMETANIDE 10 MG in 0.9 % SODIUM CHLORIDE 160 ML IV (10:50)
[2024-05-19] MEDS: MAGNESIUM SULFATE IN WATER 4 GM/100 ML PIGGYBACK IV (10:54)
[2024-05-19] MEDS: ALBUMIN HUMAN 25 GM/100 ML PREMIX IV (11:20)
[2024-05-19 11:42] LABS: Glucometer 409 mg/dL (74-106)
[2024-05-19] MEDS: CARVEDILOL 6.25 MG TABLET PO ×2 (11:46→22:08)
[2024-05-19] MEDS: FINASTERIDE 5 MG TABLET PO (11:47)
[2024-05-19] MEDS: ISOSORBIDE MONONITRATE 30 MG TAB.ER.24H PO (11:47)
[2024-05-19] MEDS: ALLOPURINOL 300 MG TABLET PO (11:47)
[2024-05-19] MEDS: SPIRONOLACTONE 25 MG TABLET PO (11:47)
[2024-05-19] MEDS: HYDRALAZINE HCL 50 MG TABLET 100 MG PO (11:48)
[2024-05-19] MEDS: POTASSIUM CHLORIDE 10 MEQ ER TABLET PO (11:48)
[2024-05-19] MEDS: ATORVASTATIN CALCIUM 10 MG TABLET PO (11:48)
[2024-05-19] MEDS: MAGNESIUM OXIDE 400 MG TABLET PO ×2 (11:48→22:08)
[2024-05-19] MEDS: ENSURE HP 237 ML LIQUID PO (11:49)
[2024-05-19] MEDS: PROSTAT 15 GM PROTEIN/100 CAL 30 ML LIQUID PACKET PO (11:49)
[2024-05-19] MEDS: APIXABAN 5 MG TABLET PO ×2 (11:49→22:08)
[2024-05-19] MEDS: INSULIN ASPART 300 UNIT/3 ML PEN SUBQ ×2 (11:50→17:03)
[2024-05-19] MEDS: INSULIN GLARGINE 300 UNIT/3 ML INSULN.PEN 18 UNIT SQ (11:59)
--- NOTE | 2024-05-19 12:15 | PC.NURSE ---
Called respiratory to get vapotherm for patient at 1209 for the PRN order. Patient spo2 has been less than 89% on 6L nasal cannula. Respiratory states she will be up.
[2024-05-19] MEDS: LEVOFLOXACIN IN DEXTROSE 5 % 750 MG/150 ML PREMIX 100 MG IV (12:33)
--- NOTE | 2024-05-19 13:26 | ECG_ITS ---
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
[2024-05-19] MEDS: NITROGLYCERIN 0.4 MG BOTTLE SL ×2 (13:33→13:45)
[2024-05-19 13:37] LABS: Glucometer 388 mg/dL (74-106)
[2024-05-19 13:44] LABS: ABG PCO2 27.8 mmHg (35.0-45.0); Base Excess ABG -0.7 mmol/L (-2.0-2.0); HCO3 ABG 22.3 mmol/L (22.0-26.0)
[2024-05-19 13:45] LABS: Allen Test POSITIVE (POSITIVE); Fractionated Inspired Oxygen 50 %; Liters per Minute 40; O2 Mode VAPOTHERM; Oxygen Saturation ABG 86.7 %; Puncture Site RR
[2024-05-19 13:47] LABS: pH ABG 7.512 (7.350-7.450)
[2024-05-19] MEDS: ALPRAZOLAM 0.25 MG TABLET PO (13:47)
[2024-05-19] MEDS: SPIRONOLACTONE 25 MG TABLET 50 MG PO (15:02)
[2024-05-19] MEDS: CEFTAZIDIME 2,000 MG in 0.9 % SODIUM CHLORIDE 100 ML 200 MG IV (15:09)
[2024-05-19] MEDS: CLINDAMYCIN PHOSPHATE/D5W 600 MG/50 ML PREMIX 100 MG IV (15:16)
--- NOTE | 2024-05-19 15:16 | DIETREC ---
Recommend 2000 kcal CCD, Heart Healthy diet.
[2024-05-19] MEDS: LINEZOLID IN DEXTROSE 5% 600 MG/300 ML PIGGYBACK 300 MG IV (17:06)
--- NOTE | 2024-05-19 17:20 | P.DS_ITS ---
DS: Providers Provider Date of admission: 05/19/24 07:43 Primary care physician: Jayy Dutta MD Consults: 05/19/24 07:43 Occupational Therapy Eval and Treat Routine Reason for consultation: Only if needed for Rehab Has provider been notified: No Physical Therapy Eval and Treat Routine Reason for consultation: Eval and Treat Has provider been notified: No DS: Diagnosis Discharge Diagnosis (1) Fever: (2) Acute UTI: (3) CHF (congestive heart failure): (4) Acute respiratory distress: (5) Hospital acquired PNA: (6) COPD exacerbation: (7) Bladder spasm: (8) Urinary tract infection: Plan Admission findings: Fever, sinus tachycardia, respiratory distress, acute hypoxia with O2 sat of 85% on 4 L, respiratory alkalosis, metabolic alkalosis, acute combined congestive heart failure on top of chronic combined congestive heart failure complicated gated by acute UTI and acute pneumonia complicated by acute exacerbation of COPD, leading this is sepsis, not severe, unable to give aggressive fluid resuscitation secondary to the acute combined congestive heart failure Acute hypoxic respiratory failure with severe hypoxia with O2 sat of 85% on 4 L, acute pneumonia, white blood cell count normal but significant left shift consistent with bacterial process and hospital-acquired, complicated by acute exacerbation of COPD leading to sepsis leading to respiratory and metabolic alkalosis-IV antibiotics, aerosol treatments, hold off on steroids secondary to diabetes Acute combined congestive heart failure complicated by a history of 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, last echo was about 20%.-Bumex drip this morning, added albumin as patient has severe protein calorie malnutrition from, troponin negative holding off on checking BNP secondary to it always being over 35,000 Acute UTI-history of this in the past, history of fungal infection in the past, culture pending, this is a complication of procedure as he had a cystoscopy done the day prior to admission-culture pending, continue with current antibiotics for above should cover both Severe hypomagnesemia-bolus this morning and oral supplementation Severe protein calorie malnutrition-diet management as well as IV albumin this morning which should help assist with diuresis for the acute combined congestive heart failure Hypertension-continue with medications Diabetes mellitus-continue with long-acting insulin and insulin sliding scale GERD with possible acute anemia-change patient to IV Protonix and check stool for occult blood BPH with chronic indwelling Gomez complicating the acute UTI as outlined above Hypercholesterolemia continue with home medications Atrial fibrillation by history-maintain anticoagulation Gout-maintain current dosing for allopurinol Admission status: Patient admitted with healthcare acquired pneumonia complicated by acute combined congestive heart failure leading to exacerbation of 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 Inpatient status. Urinary Catheter Management Urinary Catheter Management 2-way Urethral: Cath placed during this visit: no ? DS: Summary Hospital Course Hospital Course: Patient with history of recurrent UTIs, had a procedure yesterday with a cystoscopy and Gomez catheter changed at the urologist office, they did obtain a urine sample and it is currently residing at [facility], seen in ER due to fever and increasing shortness of breath found to have acute combined congestive heart failure secondary to the acute UTI and likely healthcare acquired pneumonia. Patient placed on Zosyn and levofloxacin this morning for broader spectrum coverage, diuresed with Bumex drip at a slower rate to preserve kidney function, however this afternoon had acute onset of chest pain and shortness of breath, chest x-ray shows flash pulmonary edema, patient initially placed on Vapotherm and that was ineffective so placed on BiPAP and transferred back to the intensive care unit, currently is on BiPAP at 65%, not great urine output about 800 cc for the day, chest x-ray showing possible progression of the pneumonia as well so antibiotics were changed to Fortaz, clindamycin for anaerobic coverage and linezolid for MRSA coverage while trying to preserve kidney function, this case patient's deterioration and sander hand up at [facility], discussed with hospitalist there and agreed to accept patient in transfer to their intensive care unit. Medications see list. He can follow-up with me in the office once he is discharged from the hospital and/or rehab Time Spent with Patient Time attestation: Total time spent providing and/or coordinating discharge services: Exam Constitutional Vital Signs, click to edit/add: Last Vital Signs Temp 98.0 F 05/19/24 14:00 Pulse 85 05/19/24 16:10 Resp 34 H 05/19/24 16:10 BP 129/74 05/19/24 16:00 Pulse Ox 91 L 05/19/24 16:10 O2 Del Method BIPAP 05/19/24 14:30 O2 Flow Rate 40 05/19/24 13:15 FiO2 65 05/19/24 14:50 Documenting provider has reviewed patient's vital signs: yes Common normals: apparent distress (Moderate conversational dyspnea) Chest Common normals: inspection of chest normal Respiratory Common normals: abnormal respiratory effort (Moderate conversational dyspnea) Auscultation: rales (At least long term up the lung mendoza), rhonchi and egophony left lower and right lower Cardio Common normals: regular rate and regular rhythm Extremity Common normals: abnormal to inspection (3+ edema) DS: Data Data Completed and Pending Labs on day of discharge: Labs from last 24 hours 05/19/24 05/19/24 05/19/24 13:48 13:38 13:36 WBC RBC Hgb Hct MCV MCH MCHC RDW Plt Count MPV Neut % (Auto) Lymph % (Auto) [place] % (Auto) Eos % (Auto) Baso % (Auto) Neut # (Auto) Lymph # (Auto) [place] # (Auto) Eos # (Auto) Baso # (Auto) Abs Immat Gran (auto) Imm/Tot Granulo (auto) Puncture Site Rr ABG pH 7.512 H* ABG pCO2 27.8 L ABG pO2 45.0 L* ABG HCO3 22.3 ABG O2 Saturation 86.7 ABG Base Excess -0.7 Rustam Test Positive O2 Liters/Min 40 FiO2 50 Sodium Potassium Chloride Carbon Dioxide Anion Gap BUN Creatinine Est GFR ( Amer) Est GFR (Non-Af Amer) BUN/Creatinine Ratio Glucose Lactate Calcium Magnesium Total Bilirubin AST ALT Alkaline Phosphatase Troponin I High Sens 44.0 NT-Pro-B Natriuret Pep Total Protein Albumin Globulin Albumin/Globulin Ratio Urine Color Urine Clarity Urine pH Ur Specific [place] Urine Protein Urine Glucose (UA) Urine Ketones Urine Occult Blood Urine Nitrite Urine Bilirubin Urine Urobilinogen Ur Leukocyte Esterase Urine RBC Urine WBC Ur Squamous Epith Cells Urine Crystals Urine Bacteria Urine Casts Hyaline Casts Urine Mucus Ur Culture Indicated? Influenza Type A Ag Influenza Type B Ag SARS-CoV-2 Ag (CV2AG) POC Glucose 388 H 05/19/24 05/19/24 05/18/24 11:41 05:32 22:55 WBC 8.2 RBC 2.46 L Hgb 7.8 L Hct 23.6 L* MCV 95.9 H MCH 31.7 MCHC 33.1 RDW 15.4 H Plt Count 117 L MPV 8.8 L Neut % (Auto) 77.8 H Lymph % (Auto) 13.2 L [place] % (Auto) 7.5 Eos % (Auto) 0.9 Baso % (Auto) 0.1 L Neut # (Auto) 6.4 Lymph # (Auto) 1.1 L [place] # (Auto) 0.6 Eos # (Auto) 0.1 Baso # (Auto) 0.0 Abs Immat Gran (auto) 0.04 H Imm/Tot Granulo (auto) 0.5 Puncture Site ABG pH ABG pCO2 ABG pO2 ABG HCO3 ABG O2 Saturation ABG Base Excess Rustam Test O2 Liters/Min FiO2 Sodium 135 L Potassium 3.6 Chloride 102 Carbon Dioxide 24.5 Anion Gap 12.1 BUN 41.0 H Creatinine 1.71 H Est GFR ( Amer) 47 L Est GFR (Non-Af Amer) 39 L BUN/Creatinine Ratio 24.0 Glucose 270 H Lactate Calcium 8.0 L Magnesium 1.3 L Total Bilirubin AST ALT Alkaline Phosphatase Troponin I High Sens NT-Pro-B Natriuret Pep Total Protein Albumin Globulin Albumin/Globulin Ratio Urine Color Lt. yellow Urine Clarity Cloudy A Urine pH 5.5 Ur Specific [place] 1.010 Urine Protein 100 A Urine Glucose (UA) 100 A Urine Ketones Negative Urine Occult Blood Small A Urine Nitrite Negative Urine Bilirubin Negative Urine Urobilinogen 0.2 Ur Leukocyte Esterase Small A Urine RBC 2-5 A Urine WBC >100 A Ur Squamous Epith Cells Rare Urine Crystals None seen Urine Bacteria Moderate A Urine Casts Seen A Hyaline Casts Few Urine Mucus Trace A Ur [place] Indicated? [place] [place] Type A Ag Influenza Type B Ag SARS-CoV-2 Ag (CV2AG) POC Glucose 409 H 05/18/24 05/18/24 05/18/24 22:35 22:23 22:19 WBC 9.5 RBC 2.61 L Hgb 8.4 L Hct 25.1 L MCV 96.2 H MCH 32.2 MCHC 33.5 RDW 15.5 H Plt Count 138 L MPV 9.7 Neut % (Auto) 83.3 H Lymph % (Auto) 8.5 L [place] % (Auto) 7.1 Eos % (Auto) 0.5 L Baso % (Auto) 0.1 L Neut # (Auto) 7.9 H Lymph # (Auto) 0.8 L [place] # (Auto) 0.7 Eos # (Auto) 0.1 Baso # (Auto) 0.0 Abs Immat Gran (auto) 0.05 H Imm/Tot Granulo (auto) 0.5 Puncture Site R.radial ABG pH 7.508 H* ABG pCO2 31.8 L ABG pO2 55.8 L* ABG HCO3 25.2 ABG O2 Saturation 92.3 ABG Base Excess 2.2 H Rustam Test Positive O2 Liters/Min 4 FiO2 Sodium 133 L Potassium 3.9 Chloride 98 Carbon Dioxide 25.4 Anion Gap 13.5 BUN 39.0 H Creatinine 1.74 H Est GFR ( Amer) 46 L Est GFR (Non-Af Amer) 38 L BUN/Creatinine Ratio 22.4 Glucose 237 H Lactate 1.0 Calcium 8.1 L Magnesium Total Bilirubin 0.5 AST 14 L ALT 21 Alkaline Phosphatase 71 Troponin I High Sens 51.9 NT-Pro-B Natriuret Pep >84369.0 H* Total Protein 5.2 L Albumin 2.0 L Globulin 3.2 Albumin/Globulin Ratio 0.6 Urine Color Urine Clarity Urine pH Ur Specific [place] Urine Protein Urine Glucose (UA) Urine Ketones Urine Occult Blood Urine Nitrite Urine Bilirubin Urine Urobilinogen Ur Leukocyte Esterase Urine RBC Urine WBC Ur Squamous Epith Cells Urine Crystals Urine Bacteria Urine Casts Hyaline Casts Urine Mucus Ur Culture Indicated? Influenza Type A Ag Negative Influenza Type B Ag Negative SARS-CoV-2 Ag (CV2AG) Negative POC Glucose Discharge Plan Discharge Disposition: Xfer [facility] Condition: Fair
[2024-05-19 20:11] LABS: Troponin I High Sensitivity 71.4 pg/mL (4.0-76.1)
[2024-05-19] MEDS: HYDRALAZINE HCL 50 MG TABLET PO (22:08)
[2024-05-19] MEDS: TERAZOSIN HCL 5 MG CAPSULE 10 MG PO (22:08)
--- NOTE | 2024-05-22 09:03 | SWNOTE1 ---
DARRIUS had email from Sonia at checking on pt. Pt was not on census, DARRIUS looked him up and he was transferred to [facility]. DARRIUS updated Sonia of this information.
== END 2024-05-20 00:37 | disposition short-term general hospital (02) | DRG 871 ==
LOC: ER 05-19 00:41 → MS 05-19 06:10 → ICU 05-19 14:24
PROVIDERS: Registered Nurse; Admitting Provider Family Medicine; Emergency Provider Emergency Medicine; PCP Family Medicine; Visit Provider Family Medicine
DX: A41.9 Sepsis, unspecified organism (principal); E43 Unspecified severe protein-calorie malnutrition; I50.43 Acute on chronic combined systolic (congestive) and diastolic (congestive) heart failure; J96.01 Acute respiratory failure with hypoxia; J15.9 Unspecified bacterial pneumonia; J44.1 Chronic obstructive pulmonary disease with (acute) exacerbation; J44.0 Chronic obstructive pulmonary disease with (acute) lower respiratory infection; E87.3 Alkalosis; T83.592A Infection and inflammatory reaction due to indwelling ureteral stent, initial encounter; I11.0 Hypertensive heart disease with heart failure; E11.9 Type 2 diabetes mellitus without complications; Z68.29 Body mass index [BMI] 29.0-29.9, adult; N99.89 Other postprocedural complications and disorders of genitourinary system; E83.42 Hypomagnesemia; Z79.4 Long term (current) use of insulin; K21.9 Gastro-esophageal reflux disease without esophagitis; D64.9 Anemia, unspecified; Y84.6 Urinary catheterization as the cause of abnormal reaction of the patient, or of later complication, without mention of misadventure at the time of the procedure; E78.00 Pure hypercholesterolemia, unspecified; I48.91 Unspecified atrial fibrillation; M10.9 Gout, unspecified; Y95 Nosocomial condition; Z87.891 Personal history of nicotine dependence; Z79.01 Long term (current) use of anticoagulants; Z79.899 Other long term (current) drug therapy; Z79.82 Long term (current) use of aspirin; Z79.85 Long-term (current) use of injectable non-insulin antidiabetic drugs; Z88.8 Allergy status to other drugs, medicaments and biological substances
CPT/HCPCS: 36415; 36600; 71045; 80048; 80053; 81001; 82805; 82948; 83605; 83735; 83880; 84484; 85025; 87040; 87070; 87086; 87205; 87804; 87811; 93005; 94640; 94660; 94667; 94761; 94799; 96365; 96375; 97165; 99285; G0328; J0713; J1940; J2020; J2543; J3475; P9046

== ENCOUNTER 2024-07-07 14:05 | Outpatient (OUT) | payer MEDICARE, OTHER, SELFPAY ==
--- NOTE | 2024-07-07 14:21 | CT_ITS ---
The [address] [address] Patient Name: LEIGHTON ARCINIEGA MRN: [id number] date: 1945 Sex: M Assigned Patient Location: CT Current Patient Location: CT Accession/Order Number: [id number] Exam Date: 07/07/2024 15:35 Report Date: 07/07/2024 15:39 At the request of: LORI MEDINA MD Procedure: CT chest wo con CT Chest without contrast TECHNIQUE: Axial imaging with 2-D reconstruction. The CT exam was performed using one or more the following dose reduction techniques: Automated exposure control, adjustment of the MA and/or Kv according to patient size, or use of the iterative reconstruction technique. History: Recent pneumonia. Shortness of breath COMPARISON: 05/20/2024 THYROID: Unremarkable TRACHEA AND BRONCHI: Patent ESOPHAGUS: Unremarkable. HEART: Stable cardiac device intact PERICARDIAL EFFUSION: None CORONARY ARTERY CALCIFICATION: Present MEDIASTINUM: No adenopathy. No pneumoperitoneum. No mediastinal hematoma. PULMONARY DAVID: No hilar mass or adenopathy is seen. THORACIC AORTA Unremarkable LUNG NODULE None LUNGS: Near-complete resolution of groundglass parenchymal densities. Chronic basilar fibrotic changes. PLEURAL EFFUSION: Near-complete resolution of pleural effusion PNEUMOTHORAX: No pneumothorax seen. CHEST WALL: No abnormality AXILLA:Unremarkable BONY STRUCTURES at thoracic hyperostosis UPPER ABDOMEN: Images of the upper abdomen are noncontributory. CT/CT chest wo con IMPRESSION: Near-complete resolution of groundglass parenchymal densities and pleural effusions. Basilar fibrotic changes. Impression dictated by: Benton Chakraborty M.D.07/07/2024 3:39 PM Dictation Location: [place] Electronically authenticated by: [id number] Y Date: 07/07/2024 15:39
== END 2024-07-07 14:06 | disposition home or self-care (01) ==
LOC: CT 14:06
PROVIDERS: PCP Family Medicine; Visit Provider Family Medicine
DX: J18.9 Pneumonia, unspecified organism (principal)
CPT/HCPCS: 71250

== ENCOUNTER 2024-07-24 16:40 | Emergency (ER) | payer MEDICARE, OTHER, SELFPAY ==
[2024-07-24 16:46] VITALS: BP 147/80; PULSE 70; TEMP 36.9; O2SAT 91; BMI 27.0
[2024-07-24 16:58] VITALS: O2SAT 91
--- NOTE | 2024-07-24 17:41 | ED.GENADUL1 ---
HPI HPI - General Adult General Chief complaint: Urogenital-Male Stated complaint: Medical Devise Time Seen by Provider: 07/24/24 16:42 Source: patient Mode of arrival: walk-in Limitations: no limitations History of Present Illness HPI narrative: 78-year-old male to the emergency department with chief complaint of bladder spasms. Patient reports he had a UroLift procedure today at [facility]. He reports that since he was discharged home with a Gomez catheter in place he is having intense spasms in the suprapubic area that are associated with urine flowing around the catheter when they occur. He has not been able to contact anyone from urology after several calls so he came to the emergency department for evaluation. Related Data Home Medications ?Medication ?Instructions ?Recorded ?Confirmed acetaminophen 500 mg capsule 1,000 mg PO Q6H PRN fever or pain 02/26/24 05/18/24 allopurinol 300 mg tablet 300 mg PO DAILY 02/26/24 05/18/24 apixaban 5 mg tablet (Eliquis) 5 mg PO Q12H 02/26/24 05/18/24 aspirin 81 mg tablet,delayed 81 mg PO .weekly 02/26/24 05/18/24 release (Adult Aspirin Regimen) calcium 315 mg (as 1 tab PO DAILY 02/26/24 05/18/24 citrate)-vitamin D3 5 mcg (200 unit) tablet (Calcium Citrate + D) carvedilol 6.25 mg tablet 6.25 mg PO Q12H 02/26/24 05/18/24 cyanocobalamin (vitamin B-12) 1,000 mcg PO DAILY 02/26/24 05/18/24 1,000 mcg tablet (Vitamin B-12) multivitamin (Daily Multi-Vitamin 1 tab PO DAILY 02/26/24 05/19/24 tablet) omeprazole 20 mg capsule,delayed 20 mg PO DAILY 02/26/24 05/19/24 release semaglutide 1 mg/dose (4 mg/3 mL) 1 mg subcut QWEEK 02/26/24 05/19/24 subcutaneous pen injector (Ozempic) simvastatin 20 mg tablet 20 mg PO DAILY 02/26/24 05/19/24 spironolactone 25 mg tablet 25 mg PO DAILY 02/26/24 05/19/24 terazosin 10 mg capsule 10 mg PO BEDTIME 02/26/24 05/19/24 finasteride 5 mg tablet 5 mg PO DAILY 05/03/24 05/18/24 bumetanide 0.5 mg tablet 1.5 mg PO DAILY 05/19/24 05/19/24 hydralazine 50 mg tablet 50 mg PO BID 05/19/24 05/19/24 insulin aspart U-100 100 unit/mL 1 sliding scale dose subcut ACHS 05/19/24 05/19/24 (3 mL) subcutaneous pen (Novolog FlexPen U-100 Insulin aspart) insulin glargine 100 unit/mL (3 8 unit subcut .q hs 05/19/24 05/19/24 mL) subcutaneous pen (Lantus Solostar U-100 Insulin) insulin glargine 100 unit/mL (3 18 unit subcut QAM 05/19/24 05/19/24 mL) subcutaneous pen (Lantus Solostar U-100 Insulin) isosorbide mononitrate 30 mg 30 mg PO QAM 05/19/24 05/19/24 tablet,extended release 24 hr potassium chloride 10 mEq 10 meq PO QAM 05/19/24 05/19/24 tablet,extended release Previous Rx's ?Medication ?Instructions ?Recorded albuterol sulfate 2.5 mg/3 mL 2.5 mg (3 mL) inhalation Q4H PRN 05/06/24 (0.083 %) solution for nebulization bronchospasm #90 mL hyoscyamine sulfate 0.125 mg 0.125 mg PO Q4H PRN bladder spasms 07/24/24 tablet (Levsin) #18 tabs Allergies Allergy/AdvReac Type Severity Reaction Status Date / Time fosinopril (From Monopril) Allergy Severe shortness Verified 05/18/24 22:15 of breath metoprolol Allergy Severe shortness Verified 05/18/24 22:15 of breath strawberry Allergy Severe Rash Verified 05/18/24 22:15 Opioid HPI Opioid Management Most Recent Opioid Data: Last Pain Scale 8 Today, 16:57 Last Pain Intensity 0 05/05/24, 10:47 Last ORT Total Score 0 05/19/24, 00:55 Last ORT Risk Category Low Risk 05/19/24, 00:55 Review of Systems ROS Status of ROS 10 or more systems reviewed and unremarkable except as noted in history and below [facility] Medical History (Updated 07/24/24 @ 17:38 by Vini Quinteros MD) Fever ?R50.9 - Fever, unspecified (ICD-10) Acute UTI ?N39.0 - Urinary tract infection, site not specified (ICD-10) CHF (congestive heart failure) ?I50.9 - Heart failure, unspecified (ICD-10) Hypoxia ?R09.02 - Hypoxemia (ICD-10) Congestive heart failure ?I50.9 - Heart failure, unspecified (ICD-10) Pneumonia ?J18.9 - Pneumonia, unspecified organism (ICD-10) Acute respiratory distress ?R06.03 - Acute respiratory distress (ICD-10) Pneumonia ?J18.9 - Pneumonia, unspecified organism (ICD-10) Acute on chronic diastolic (congestive) heart failure ?I50.33 - Acute on chronic diastolic (congestive) heart failure (ICD-10) Hospital acquired PNA ?J18.9 - Pneumonia, unspecified organism (ICD-10) ?Y95 - Nosocomial condition (ICD-10) Shortness of breath ?R06.02 - Shortness of breath (ICD-10) Congestive heart failure ?I50.9 - Heart failure, unspecified (ICD-10) Pneumonia ?J18.9 - Pneumonia, unspecified organism (ICD-10) Severe sepsis ?A41.9 - Sepsis, unspecified organism (ICD-10) ?R65.20 - Severe sepsis without septic shock (ICD-10) COPD exacerbation ?J44.1 - Chronic obstructive pulmonary disease with (acute) exacerbation (ICD-10) Acute exacerbation of chronic heart failure ?I50.9 - Heart failure, unspecified (ICD-10) Acute hypoxemic respiratory failure ?J96.01 - Acute respiratory failure with hypoxia (ICD-10) Acute kidney injury ?N17.9 - Acute kidney failure, unspecified (ICD-10) Bladder spasm ?N32.89 - Other specified disorders of bladder (ICD-10) Urinary tract infection ?N39.0 - Urinary tract infection, site not specified (ICD-10) Urinary tract infection ?N39.0 - Urinary tract infection, site not specified (ICD-10) Failure of outpatient treatment ?Z78.9 - Other specified health status (ICD-10) Urinary tract infection ?N39.0 - Urinary tract infection, site not specified (ICD-10) Skin cancer ?C44.90 - Unspecified malignant neoplasm of skin, unspecified (ICD-10) Myocardial infarction ?I21.9 - Acute myocardial infarction, unspecified (ICD-10) Pacemaker ?Z95.0 - Presence of cardiac pacemaker (ICD-10) CKD (chronic kidney disease) ?N18.9 - Chronic kidney disease, unspecified (ICD-10) CAD (coronary artery disease) ?I25.10 - Atherosclerotic heart disease of [place] coronary artery without angina pectoris (ICD-10) A-fib ?I48.91 - Unspecified atrial fibrillation (ICD-10) Erectile dysfunction ?N52.9 - Male erectile dysfunction, unspecified (ICD-10) UTI (urinary tract infection) ?N39.0 - Urinary tract infection, site not specified (ICD-10) GERD (gastroesophageal reflux disease) ?K21.9 - Gastro-esophageal reflux disease without esophagitis (ICD-10) Hypertension ?I10 - Essential (primary) hypertension (ICD-10) Diabetes ?E11.9 - Type 2 diabetes mellitus without complications (ICD-10) Surgical History History of arthroscopic knee surgery ?Z98.890 - Other specified postprocedural states (ICD-10) Hx of tonsillectomy ?Z90.89 - Acquired absence of other organs (ICD-10) Family History Mother Family history of CHF (congestive heart failure) Family history of myocardial infarction Family history of hypertension Family history of diabetes mellitus Family history of COPD (chronic obstructive pulmonary disease) Grandmother Family history of CHF (congestive heart failure) Brother Family history of CHF (congestive heart failure) Family history of myocardial infarction Family history of hypertension Family history of COPD (chronic obstructive pulmonary disease) Father Kidney failure Social History Within the past year, how often did you have a drink containing alcohol: never Score interpretation: A score less than 4 is consistent with normal alcohol consumption. Smoking status: Former smoker Non-prescribed substance use: denies use Known occupational exposures/hazards: No Highest level of school completed/degree received: some college, no degree Do you want help with school or training: No Little interest or pleasure in doing things: not at all Feeling down, depressed, or hopeless: not at all Gender Identity: male Exam Narrative Exam Narrative: VITALS: I have reviewed the triage vital signs. GENERAL: Well developed, well appearing adult in no acute distress. NEURO: Alert and oriented. Moves all extremities. Face is symmetric and expressive. EYES: PERRL. No scleral icterus or conjunctival injection. No discharge. HENT: Normocephalic, atraumatic. Hearing is grossly intact. Nares grossly patent and without discharge. Mucous membranes moist. GI/: Abdomen is soft and non-tender. Normoactive bowel sounds. Gomez catheter in place. Yellow urine in bag. EXTREMITIES: Symmetric muscle bulk. No joint swelling. No clubbing, cyanosis, or deformity. SKIN: Warm and dry. Normal turgor. No rash or lesions appreciated. PSYCH: Mood, affect, and interaction is appropriate to the setting. Constitutional Vital Signs, click to edit/add: Last Vital Signs Temp 98.4 F 07/24/24 16:46 Pulse 70 07/24/24 16:46 Resp 18 07/24/24 16:46 BP 147/80 H 07/24/24 16:46 Pulse Ox 91 L 07/24/24 16:58 O2 Del Method Room Air 07/24/24 16:58 Course Vital Signs Vital signs: Vital Signs Temperature 98.4 F 07/24/24 16:46 Pulse Rate 70 07/24/24 16:46 Respiratory Rate 18 07/24/24 16:46 Blood Pressure 147/80 H 07/24/24 16:46 Pulse Oximetry 91 L 07/24/24 16:46 Oxygen Delivery Method Room Air 07/24/24 16:46 Temperature 98.4 F 07/24/24 16:46 Pulse Rate 70 07/24/24 16:46 Respiratory Rate 18 07/24/24 16:46 Blood Pressure 147/80 H 07/24/24 16:46 Pulse Oximetry 91 L 07/24/24 16:58 Oxygen Delivery Method Room Air 07/24/24 16:58 Medical Decision Making [facility] Narrative Medical decision making narrative: Well-appearing 78-year-old male with intermittent bladder spasms associated with leakage around his catheter. Vital stable, the patient is afebrile. Gomez catheter is in place. Balloon is confirmed to be within the lumen of the bladder via [id number] ultrasound. Case was discussed with Dr. Bettencourt who is on-call for the urology group. He recommends initiating Levsin therapy and having the patient continue his Azo. First dose of Levsin was given the emergency department. We discussed risks and benefits of this medication. He was given a prescription for home. Return precautions were discussed. All questions were answered. The patient was discharged home. Medical Records Medical records reviewed: Yes I reviewed the patient's medical records Discharge Plan Discharge Chief Complaint: Urogenital-Male Clinical Impression: Painful bladder spasm Patient Disposition: Home, Self-Care Time of Disposition Decision: 17:38 Condition: Good Mode of Transportation: Private Vehicle Prescriptions / Home Meds: New hyoscyamine sulfate [Levsin] 0.125 mg tablet 0.125 mg PO Q4H PRN (Reason: bladder spasms) Qty: 18 0RF No Action finasteride 5 mg tablet 5 mg PO DAILY albuterol sulfate 2.5 mg /3 mL (0.083 %) solution for nebulization 2.5 mg inhalation Q4H PRN (Reason: bronchospasm) Qty: 90 11RF bumetanide 0.5 mg tablet 1.5 mg PO DAILY insulin aspart U-100 [Novolog FlexPen U-100 Insulin] 100 unit/mL (3 mL) insulin pen 1 sliding scale dose subcut ACHS Rx Instructions: per sliding scale: blood sugar- 150-199 give 1 unit; 200-249 give 2 units; 250-299 give 3 units;300-349 give 4 units; 350-399 give 5 units; if greater than 400 call insulin glargine [Lantus Solostar U-100 Insulin] 100 unit/mL (3 mL) insulin pen 18 unit subcut QAM insulin glargine [Lantus Solostar U-100 Insulin] 100 unit/mL (3 mL) insulin pen 8 unit subcut .q hs isosorbide mononitrate 30 mg tablet extended release 24 hr 30 mg PO QAM potassium chloride 10 mEq tablet extended release 10 meq PO QAM hydralazine 50 mg tablet 50 mg PO BID carvedilol 6.25 mg tablet 6.25 mg PO Q12H spironolactone 25 mg tablet 25 mg PO DAILY simvastatin 20 mg tablet 20 mg PO DAILY omeprazole 20 mg capsule,delayed release(DR/EC) 20 mg PO DAILY allopurinol 300 mg tablet 300 mg PO DAILY Eliquis 5 mg tablet 5 mg PO Q12H cyanocobalamin (vitamin B-12) [Vitamin B-12] 1,000 mcg tablet 1,000 mcg PO DAILY aspirin [Adult Aspirin Regimen] 81 mg tablet,delayed release (DR/EC) 81 mg PO .weekly calcium citrate-vitamin D3 [Calcium Citrate + D] 315 mg-5 mcg (200 unit) tablet 1 tab PO DAILY multivitamin [Daily Multi-Vitamin] Tablet 1 tab PO DAILY acetaminophen 500 mg capsule 1,000 mg PO Q6H PRN (Reason: fever or pain) terazosin 10 mg capsule 10 mg PO BEDTIME Ozempic 1 mg/dose (4 mg/3 mL) pen injector 1 mg subcut QWEEK Print Language: Dominican Instructions: Gomez Catheter Placement and Care (ED) Additional Instructions: Take medication as prescribed. Continue to take Pyridium. Follow-up with urology. Call their office with any issues. Referrals: Jayy Dutta MD [Primary Care Provider, Family Practice] - 1 week Mica Car MD [Physician, Urology] - 1 week
[2024-07-24] MEDS: HYOSCYAMINE SULFATE 0.125 MG TAB.SUBL SL (17:44)
== END 2024-07-24 18:22 | disposition home or self-care (01) ==
PROVIDERS: Emergency Provider Student in an Organized Health Care Education/Training Program; PCP Family Medicine
DX: N32.89 Other specified disorders of bladder (principal); Z98.890 Other specified postprocedural states; Z87.891 Personal history of nicotine dependence
CPT/HCPCS: 99283

== ENCOUNTER 2024-08-17 10:20 | Emergency (ER) | payer MEDICARE, OTHER, SELFPAY ==
--- OUTSIDE RECORDS SUMMARY | 2024-07-08 07:41 | XMS_ITS ---
Author Organization [facility] [place] Address [address] [place] [address] Care Team Providers Care Cabinet Worker Name Role Phone Vinicio Dutta Primary Care Provider REASON FOR VISIT CT Results Encounters Encounter Location Date Provider Diagnosis [facility] [address] [place] [address] 07/08/2024 Vinicio Alfredolesvia Plan Of Treatment Next Appt Details Provider Name:Vinicio Dutta, 01:00:00 PM, [address] [place], [address], Progress Notes * Roel ZAMARRIPA CDOB: [birth year] (78 yo M)Acc No.[id number]:07/08/2024 Patient: Yanet Roel LLANES :1945 A ge:78 Y S ex:Male Address:[address] , [place], [address] * true * Date: Generated for Printi ng/Faxing/eTransmitting on: 0 08/17/2024 10:31 AM EDT
--- OUTSIDE RECORDS SUMMARY | 2024-07-20 11:51 | XMS_ITS ---
Author Organization The [facility] [place] Address [address] [place] [address] Care Team Providers Care Hospital Intern Name Role Phone Vinicio Dutta Primary Care Provider REASON FOR VISIT Urine + Encounters Encounter Location Date Provider Diagnosis [facility] [address] [place] [id number] 07/20/2024 Vinicio Luzmaria Plan Of Treatment Next Appt Details Provider Name:Vinicio Dutta, 01:00:00 PM, [address] [place], [address], Progress Notes * Roel ZAMARRIPA CDOB: [birth year] (78 yo M)Acc No.[id number]:07/20/2024 Patient: Yanet Roel LLANES :1945 A ge:78 Y S ex:Male Address:[address] , [place], [address] * true * Date: Generated for Printi ng/Faxing/eTransmitting on: 0 08/17/2024 10:30 AM EDT
--- OUTSIDE RECORDS SUMMARY | 2024-07-26 09:00 | XMS_ITS ---
Author Organization [facility] in [place] Address [address] [place] [address] Care Team Providers Care Conveyor System Dispatcher Name Role Phone Luzmaria Vinicio Primary Care Provider REASON FOR VISIT 3 mo f/u Encounters Encounter Location Date Provider Diagnosis [facility] [address] [place] [address] 07/26/2024 Vinicio Dutta Plan Of Treatment Next Appt Details Provider Name:Vinicio Yoni Dutta, 01:00:00 PM, [address] [place], [address], Progress Notes * Roel ZAMARRIPA CDOB: [birth year] (78 yo M)Acc No.[id number]:07/26/2024 UNLOCKED PROGRESS NOTE Progress Note Patient: Yanet LLANESRoel [facility] Kar[facility] :1945 A ge:78 Y S ex:Male Date:07/26/2024 Address:[address] , [place], [id number] Subjective: * Chief Complaints: * 1 . 3 mo f/u. * Medical History: Objective: * Vitals: Assessment: Plan: * Treatment: * * Electronic signature of Vinicio Dutta MD, [id number] on 08/17/2024 at 10:31 AM EDT Sign off status: Pending Visit Status: C ANC (Cancelled) * Provider: Asif Dutta (TTC)MD Date: 0 07/26/2024 Generated for Dimitri martin/Saul/Lola on: 0 08/17/2024 10:31 AM EDT
[2024-08-17 10:26] VITALS: BP 120/62; PULSE 70; TEMP 36.4; O2SAT 94; BMI 27.3
--- OUTSIDE RECORDS SUMMARY | 2024-08-17 10:30 | XMS_ITS | Encounter Summary ---
Author Organization [facility] Address [address] [place] [address] Phone Care Team Providers Care Pipe Threader Name Role Phone Manfred Dueñas DO Primary Care Provider [phone] Encounter Details Date Type Department Care Team (Late st Contact Info) Description 05/13/2024 Scanned Document [facility] [address] [place] [id number] Scanning, Generic Provider Social History Tobacco Use Types Packs/Day Years Used Date Smoking Tobacco: Former Cigarettes Q uit: 1993 Smokeless Tobacco: Never Alcohol Use Standard Drinks/Week Comments Never 0 (1 standard drink = 0.6 oz pur e alcohol) Sex and Gender Information Value Date Recorded Sex Assigned at Not on file Legal Sex Male 2:13 PM EST Gender Identity Not on file Sexual Orientation Not on file documented as of this encounter Plan of Treatment Upcoming Encounters Date Type Department Care Team (Late st Contact Info) Description 11/07/2024 10:30 AM EDT Office Visit [place] [address] [place] [address] Johanna Martines MD [address] [facility] [address] [place] [address] documented as of this encounter Visit Diagnoses Not on filedocumented in this encounter Additional Health Concerns Assessment Noted Time A fall risk assessment has been complete d for the patient 03/01/2024 11:13 AM EST documented as of this encounter Care Teams Pipe Threader Relationship Specialty Start Date End Date Manfred Dueñas DO [address] [place] [id number] PCP - General 03/22/99 documented as of this encounter
--- OUTSIDE RECORDS SUMMARY | 2024-08-17 10:30 | XMS_ITS | Encounter Summary ---
Author Organization [facility] Address [address] [place] [address] Phone Care Team Providers Care Food Scientist Name Role Phone Manfred Dueñas DO Primary Care Provider [phone] Encounter Details Date Type Department Care Team (Late st Contact Info) Description 05/10/2024 Scanned Document [facility] [address] [place] [id number] Scanning, Generic Provider Social History Tobacco Use [...] Description 11/07/2024 10:30 AM EDT Office Visit [place] [address] [place] [address] Johanna Martines MD [address] [facility] [address] [place] [address] documented as of this encounter Visit Diagnoses Not on filedocumented in this encounter Additional Health Concerns Assessment Noted Time A fall risk assessment has been complete d for the patient 03/01/2024 11:13 AM EST documented as of this encounter Care Teams Food Scientist Relationship Specialty Start Date End Date Manfred Dueñas DO [address] [place] [id number] PCP - General 03/22/99 documented as of this encounter
--- OUTSIDE RECORDS SUMMARY | 2024-08-17 10:30 | XMS_ITS | Encounter Summary ---
Author Organization [facility] Address [address] [place] [address] Phone Care Team Providers Care Director Patient Accounting Name Role Phone Manfred Dueñas Primary Care Provider [phone] Encounter Details Date Type Department Care Team (Late st Contact Info) Description 02/28/2024 Scanned Document [address] [place] [address] Scanning, Generic Provider Social History Tobacco Use Types Packs/Day Years Used Date Smoking Tobacco: Former Cigarettes Q uit: 1992 Smokeless Tobacco: Never Alcohol Use Standard Drinks/Week Comments Never 0 (1 standard drink = 0.6 oz pur e alcohol) Sex and Gender Information Value Date Recorded Sex Assigned at Not on file Legal Sex Male 2:13 PM EST Gender Identity Not on file Sexual Orientation Not on file COVID-19 Exposure Response Date Recorded In the last 10 days, have yo u been in contact with someone who was confirmed or suspected to have Coronavirus/COVID-19? No / Unsure 03/01/2024 10:44 AM EST documented as of this encounter Plan of Treatment Upcoming Encounters Date Type Department Care Team (Late st Contact Info) Description 11/07/2024 10:30 AM EDT Office Visit [place] [address] [place] [address] Johanna Martines MD [address] [place] [address] documented as of this encounter Procedures Procedure Name Priority Date/Time Associated Diagnosis Comments OUTSIDE LAB SCAN 02/28/2024 documented in this encounter Results * OUTSIDE LAB SCAN (02/28/2024) Narrative 02/28/2024 Ordered by an unspecified provider. us Generic Provider Scanning OUTSIDE SCAN Final Result documented in this encounter Visit Diagnoses Not on filedocumented in this encounter Additional Health Concerns Assessment Noted Time A fall risk assessment has been complete d for the patient 08/25/2023 12:12 PM EDT documented as of this encounter Care Teams Director Patient Accounting Relationship Specialty Start Date End Date Manfred Dueñas DO [address] [place] [id number] PCP - General 03/22/99 documented as of this encounter
--- OUTSIDE RECORDS SUMMARY | 2024-08-17 10:30 | XMS_ITS | Clinical Summary ---
Author Organization [facility] Address [address] [place] [address] Care Team Providers Care Line Patroller Name Role Phone Jayy Dutta MD Primary Care Provider [phone] Allergies Active Allergy Reactions Criticality Noted Date Comments Fosinopril Unknown 10/11/2022 Metoprolol Unknown 10/11/2022 Medications Multiple Minerals-Vitam ins (CALCIUM CITRATE PLUS PO) Calcium Citrate Plus Active carvedilol (Coreg) 6.25 MG tablet every 12 (twelve) hours. Active empagliflozin (Jardiance) 25 MG 1 (one) time each day at the same time. Active ferrous sulfate 325 (65 Fe) MG tablet every 12 (twelve) hours. Active hydrALAZINE (Apresoline) 50 MG tablet every 8 (eight) hours. Active furosemide (Lasix) 20 MG tablet every 12 (twelve) hours. Active clopidogrel (Plavix) 75 MG tablet Clopidogrel Bisulfate Active INSULIN GLARGINE, 1 UNIT DIAL, SC Insulin Glargine Active Multiple Vitamins-Motorcycle Subassembler als (MULTIVITAMIN ADULT, MINERALS, PO) Multivitamin Adult Active semaglutide (Ozempic, 0.25 or 0.5 MG/DOSE,) 2 MG/1.5ML solution pen-injector Ozempic Active acetaminophen (Tylenol 8 Hour) 650 MG ER tablet Tylenol Active Cyanocobalamin (Vitamin B 12) 100 MCG lozenge Vitamin B 12 Active cholecalcifero l (Vitamin D-3) 50 MCG (1999) capsule Vitamin D Active allopurinol (Zyloprim) 300 MG tablet 1 (one) time each day at the same time. Active amLODIPine (Norvasc) 10 MG tablet 1 (one) time each day at the same time. Active apixaban (Eliquis) 5 MG tablet every 12 (twelve) hours. Active aspirin 81 MG EC tablet 1 tablet Orally week Active omeprazole OTC (PriLOSEC OTC) 20 MG EC tablet 1 capsule 1 (one) time each day at the same time. Active simvastatin (Zocor) 20 MG tablet 1 (one) time each day at the same time. Active spironolactone (Aldactone) 25 MG tablet 1 (one) time each day at the same time. Active terazosin (Hytrin) 10 MG capsule 1 (one) time each day at the same time. 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, right Take 1 capsule, by mouth, bid x 7 days 14 capsule 3 Active tamsulosin (Flomax) 0.4 MG 24 hr capsule 4 Active nystatin (Mycostatin) 558541 UNIT/GM powderIndicati ons:Erythema intertrigo Apply to the affected area, twice daily when flared or for maintenance, 30 day supply 60 g 11 4 Active Ruxolitinib Phosphate (Opzelura) 1.5 % creamIndicatio ns:Other atopic dermatitis Apply to affected areas, twice a day when flared, 30 day supply 60 g 11 4 Active tacrolimus (Protopic) 0.1 % ointmentIndica tions:Erythema intertrigo Apply topically 2 (two) times a day Apply to affected areas bid prn when flared 60 g 11 4 08/10/19 25 Active Problems Problem Noted Date Diagnosed Date Hypersomnia 12/13/2023 PLMD (periodic limb movement disorder) 4 Obesity 12/13/2023 Arthritis of left knee 10/11/2022 Psoriasis vulgaris 10/11/2022 Osteoarthritis of knee 10/11/2022 VIRGILIO (obstructive sleep apnea) Immunizations Immunization Administration Dates Next Due Pneumococcal Conjugate PCV 13 09/03/2021 Family History Medical History Relation Name Comments Diabetes Mother Heart disease Mother Hypertension Mother Melanoma Neg Hx Relation Name Status Comments Father Mother Social History Tobacco Use Types Packs/Day Years Used Date Smoking Tobacco: Never Smokeless Tobacco: Never Tobacco Cessation:Counseling Given: Not Answered Alcohol Use Standard Drinks/Week Comments Never 0 (1 standard drink = 0.6 oz pur e alcohol) Sex and Gender Information Value Date Recorded Sex Assigned at Not on file Legal Sex Male 6:36 PM EDT Gender Identity Not on file Sexual Orientation Not on file Last Filed Vital Signs Vital Sign Reading Time Taken Comments Blood Pressure 152/70 12/14/2023 1:17 PM EDT Pulse 68 12/14/2023 1:17 PM EDT Temperature - - Respiratory Rate - - Oxygen Saturation 97% 12/14/2023 1:17 PM EDT Inhaled Oxygen Concentration - - Weight 99.8 kg (220 lb) 05/25/2022 12:00 PM EST Height 179.1 cm (5' 10.5 ) 05/25/2022 12:[address] Body Mass Index 31.12 05/25/2022 12:00 PM EST Plan of Treatment Upcoming Encounters Date Type Department Care Team (Late st Contact Info) Description 12/12/2024 1:00 PM EDT Office Visit [facility] [address] [place] [phone] Rox Cervantes NP [address] [place] [address] 01/25/2025 1:05 PM EST Office Visit [facility] [address] [place] [address] Zulema Alonso MD [address] [place] [address] Health Maintenance Due Date Last Done Comments Pneumococcal Vaccine: 65+ Years Completed 09/03/2021, 02/19/2018, 02/19/2018, Additional history exists Influenza Vaccine Completed 11/13/2023, , 01/14/2022, Additional history exists Insurance MEDICARE [facility] Care Teams Line Patroller Relationship Specialty Start Date End Date Jayy Dutta MD PCP - General Family Medicine 10/09/22
--- OUTSIDE RECORDS SUMMARY | 2024-08-17 10:30 | XMS_ITS | Encounter Summary ---
Author Organization [facility] Address [address] [place] [address] Phone Care Team Providers Care Bag Filler Name Role Phone Manfred Dueñas DO Primary Care Provider [phone] Encounter Details Date Type Department Care Team (Late st Contact Info) Description 10/24/2020 Orders Only [facility] [address] [place] [address] Conversion, Onbase Social History Tobacco Use Types Packs/Day Years Used Date Smoking Tobacco: Never Assessed Sex and Gender Information Value Date Recorded Sex Assigned at Not on file Legal Sex Male 2:13 PM EST Gender Identity Not on file Sexual Orientation Not on file documented as of this encounter Plan of Treatment Upcoming Encounters Date Type Department Care Team (Late st Contact Info) Description 11/07/2024 10:30 AM EDT Office Visit [address] [place] [address] Johanna Martines MD [address] [facility] [address] [place] [address] Scheduled Orders Name Type Priority Associated Diagnoses Orde r Schedule OUTSIDE LAB SCAN Lab Ordered: 10/24/2020 documented as of this encounter Visit Diagnoses Not on filedocumented in this encounter Care Teams Bag Filler Relationship Specialty Start Date End Date Manfred Dueñas DO [address] [place] [address] PCP - General 03/22/99 documented as of this encounter
--- OUTSIDE RECORDS SUMMARY | 2024-08-17 10:30 | XMS_ITS | Encounter Summary ---
Author Organization [facility] Address [address] [place] [address] Phone Care Team Providers Care Lime Plant Operator Name Role Phone Manfred Dueñas DO Primary Care Provider [phone] Encounter Details Date Type Department Care Team (Late st Contact Info) Description 05/09/2024 Scanned Document [facility] [address] [place] [id number] Scanning, Generic Provider Social History Tobacco Use [...] Description 11/07/2024 10:30 AM EDT Office Visit [place] [address] [place] [address] Johanna Martines MD [address] [facility] [address] [place] [address] documented as of this encounter Visit Diagnoses Not on filedocumented in this encounter Additional Health Concerns Assessment Noted Time A fall risk assessment has been complete d for the patient 03/01/2024 11:13 AM EST documented as of this encounter Care Teams Lime Plant Operator Relationship Specialty Start Date End Date Manfred Dueñas DO [address] [place] [id number] PCP - General 03/22/99 documented as of this encounter
--- OUTSIDE RECORDS SUMMARY | 2024-08-17 10:30 | XMS_ITS | Encounter Summary ---
Author Organization [facility] Address [address] [place] [address] Phone Care Team Providers Care Systems Planner Name Role Phone Manfred Dueñas Primary Care Provider [phone] Encounter Details Date Type Department Care Team (Late st Contact Info) Description 05/12/2024 Scanned Document [facility] [address] [place] [phone] Scanning, Generic Provider Social History Tobacco Use [...] Description 11/07/2024 10:30 AM EDT Office Visit [place] [address] [place] [address] Johanna Martines MD [address] [facility] [address] [place] [address] documented as of this encounter Procedures Procedure Name Priority Date/Time Associated Diagnosis Comments OUTSIDE IMAGING SCAN 05/12/2024 documented in this encounter Results * OUTSIDE IMAGING SCAN (05/12/2024) Anatomical Region Laterality Modality Other Narrative 05/12/2024 Ordered by an unspecified provider. us Generic Provider Scanning OUTSIDE SCAN Final Result documented in this encounter Visit Diagnoses Not on filedocumented in this encounter Additional Health Concerns Assessment Noted Time A fall risk assessment has been complete d for the patient 03/01/2024 11:13 AM EST documented as of this encounter Care Teams Systems Planner Relationship Specialty Start Date End Date Manfred Dueñas DO [address] [place] [address] PCP - General 03/22/99 documented as of this encounter
--- OUTSIDE RECORDS SUMMARY | 2024-08-17 10:30 | XMS_ITS | Encounter Summary ---
Author Organization [facility] Address [address] [place] [address] Phone Care Team Providers Care Textile Science Technician Name Role Phone TanikaManfred lerner Primary Care Provider Encounter Details Date Type Department Care Team (Late st Contact Info) Description 05/11/2024 Scanned Document [facility] [address] [place] [address] Scanning, Generic Provider Social History [...] Description 11/07/2024 10:30 AM EDT Office Visit [place] [address] [place] [address] Johanna Martines MD [address] [facility] [address] [place] [address] documented as of this encounter Procedures Procedure Name Priority Date/Time Associated Diagnosis Comments ECHOCARDIOGRAM 05/11/2024 documented in this encounter Results * Echocardiogram (05/11/2024) Narrative 05/11/2024 Ordered by an unspecified provider. us Generic Provider Scanning CV ECHO PROCEDURES Fin al Result documented in this encounter Visit Diagnoses Not on filedocumented in this encounter Additional Health Concerns Assessment Noted Time A fall risk assessment has been complete d for the patient 03/01/2024 11:13 AM EST documented as of this encounter Care Teams Textile Science Technician Relationship Specialty Start Date End Date Manfred Dueñas DO [address] [place] [address] PCP - General 03/22/99 documented as of this encounter
--- OUTSIDE RECORDS SUMMARY | 2024-08-17 10:30 | XMS_ITS | Encounter Summary ---
Author Organization [facility] Address [address] [place] [address] Phone Care Team Providers Care Memorial Designer Name Role Phone Manfred Dueñas Primary Care Provider [phone] Encounter Details Date Type Department Care Team (Late st Contact Info) Description 05/20/2024 Scanned Document [facility] [address] [place] [phone] Scanning, Generic Provider Social History Tobacco Use [...] 10:30 AM EDT Office Visit [place] [address] [place] [address] Johanna Martines MD [address] [facility] [address] [place] [address] documented as of this encounter Procedures Procedure Name Priority Date/Time Associated Diagnosis Comments OUTSIDE IMAGING SCAN 05/20/2024 documented in this encounter Results * OUTSIDE IMAGING SCAN (05/20/2024) Anatomical Region Laterality Modality Other Narrative 05/20/2024 Ordered by an unspecified provider. us Generic Provider Scanning OUTSIDE SCAN Final Result documented in this encounter Visit Diagnoses Not on filedocumented in this encounter Additional Health Concerns Assessment Noted Time A fall risk assessment has been complete d for the patient 03/01/2024 11:13 AM EST documented as of this encounter Care Teams Memorial Designer Relationship Specialty Start Date End Date Manfred Dueñas DO [address] [place] [address] PCP - General 03/22/99 documented as of this encounter
--- OUTSIDE RECORDS SUMMARY | 2024-08-17 10:31 | XMS_ITS | Continuity of Care Document ---
Author Organization [facility] 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 Name Role Phone Jayy Dutta MD Care Team Information Fitness And Wellness Coordinator [phone] Problems Active Problems Provider Date Essential hypertension Onset: Hypertensive heart and chron ic kidney disease without heart failure, with stage 1 through stage 4 chronic kidney disease, or unspecified chronic kidney disease Werner Scruggs MD Onset: 07/23/2016 Type 2 diabetes mellitus Werner Scruggs MD Onset: 07/23/2016 Chronic kidney disease stage 3 Werner Scruggs MD Onset: 07/23/2016 Long-term current use of non -steroidal anti-inflammatory drug Werner Scruggs MD Onset: 07/23/2016 Acute kidney injury Werner Scruggs MD Onset: 06/2016 Chronic diastolic heart failure Werner Scruggs MD Onset: 07/23/2016 Pyelonephritis Werner Scruggs MD Onset: 01/28/20 17 Chronic kidney disease stage 4 Werner Scruggs MD Onset: 04/25/2018 Anemia of chronic renal failure Werner Scruggs MD Onset: 04/25/2018 Family History Date Family Member(s) Observation Comments Father Unknown KIDNEY FAILURE Mother Chronic Obstructive Pulmonar y Disease (COPD) Mother Unknown HEART First Brother Chronic Obstructive Pulmona ry Disease (COPD) First Sister Unknown LIVER FAILURE Social History Type Date Description Comments 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 ETOH Use Denies alcohol use Tobacco Use Start: Unknown End: Unknown Patient is a former smoker Recreational Drug Use Never Used Drugs Smoking Status Reviewed: 07/11/24 Patient is a former smoker Results Test Acquired Date Facility Test Result H/L Range Note .Hemoglobin And Hematocrit 06/26/2024 [facility] (000)-000-0 000 .Hemoglobin Blood 10.6 .Hematocrit 31.4 .BMP W/Egfr-LC 06/26/2024 [facility] (000)-000-0 000 .Sodium 141 .Potassium 4.9 .Chloride 101 .Carbon Dioxide 29 .Calcium 8.8 .GFR 42 .Creatinine-LC 1.6 .BUN 35 .Magnesium 06/23/[address] [address] [phone] .Magnesium 1.9 .Renal Panel-lab teressa/quest 06/23/[address] [address] [phone] .Albumin 3.1 .Calcium 9.1 .Carbon Dioxide 31 .Chloride 100 .Phosphorus 3.7 .Potassium 4.5 .Sodium 139 .BUN 36 .GFR 49 High 20 .Creatinine-LC 1.4 .Hemoglobin And Hematocrit 06/23/[address] [address] .Hemoglobin Blood 10.6 .Hematocrit 31.6 .Renal Panel 10/14/[address] [address] .Albumin 3.9 .Calcium 9.2 .Carbon Dioxide 25 .Chloride 104 .Phosphorus 3.4 .Potassium 3.9 .Sodium 138 .BUN 29 .GFR 36 High 20 .Creatinine-LC 1.9 .Hemoglobin And Hematocrit 10/14/[address] [address] .Hemoglobin Blood 12.3 .Hematocrit 35.8 PTH Intact W/Calcium 10/14/[address] [address] Z#Misc Test 49 .Urine Protein/Creat . Random 10/14/[address] [address] .Urine Protein Random 13.0 .Urine Creatinine Random 98.3 .Urine Prot/Creat Ratio 13.20 .Vitamin D, 25 Hydroxy 07/29/2023 [facility] (000)-000-0 000 .Vitamin D, 25 Hydroxy 32.00 .Renal Panel 04/22/[address] [address] [phone] .Albumin 3.9 .Calcium 9.0 .Carbon Dioxide 29 .Chloride 104 .Phosphorus 3.0 .Potassium 3.9 .Sodium 140 .BUN 26 .GFR 41 High 20 .Creatinine-LC 1.7 .Urine Protein/Creat . Random 04/22/[address] [address] .Urine Protein Random 12.1 .Urine Creatinine Random 60.9 .Urine Prot/Creat Ratio 19.90 .Magnesium 04/22/[address] [address] .Magnesium 1.7 .Hemoglobin And Hematocrit 04/22/[address] [address] .Hemoglobin Blood 12.5 .Hematocrit 39.0 .Renal Panel 11/04/[address] [address] [phone] .Albumin 3.9 .Calcium 9.5 .Carbon Dioxide 24 .Chloride 106 .Phosphorus 3.7 .Potassium 3.8 .Sodium 137 .BUN 35 .GFR 36 High 20 .Creatinine-LC 1.9 .Ua 11/04/[address] [address] Ua Appearance clear Ua Bilirubin - Ua Blood - Ua Color yellow Ua Epithelial Cells QL 0-2 Ua Glucose 3+ Ua Ketones - Ua Leuko - Ua Nitrite - Ua PH Test Strip 6.0 Ua Protein - Ua RBC 0-3 Ua Source random Ua Specific Leslie <=1.005 Ua Urobilinogen 0.2 Ua WBC 0-5 .Urine Protein/Creat . Random 11/04/[address] [address] [phone] .Urine Protein Random <6.0 .Urine Creatinine Random 42.0 .Renal Panel 08/05/[address] [address] [phone] .Albumin 3.7 .Calcium 9.1 .Carbon Dioxide 25 .Chloride 103 .Phosphorus 3.9 .Potassium 4.0 .Sodium 137 .BUN 28 .GFR 32 High 20 .Creatinine-LC 2.1 .Ua 08/05/[address] [address] Ua Appearance clear Ua Bacteria trace Ua Bilirubin negative Ua Blood negative Ua Color yellow Ua Epithelial Cells QL 0-2 Ua Glucose 3+ Ua Ketones negative Ua Leuko negative Ua Nitrite negative Ua PH Test Strip 6.0 Ua Protein negative Ua RBC 0-3 Ua Source clean catch Ua Specific Leslie 1.010 Ua Urobilinogen 0.2 Ua WBC 0-5 .Urine Protein/Creat . Random 08/05/[address] [address] .Urine Protein Random 6.9 .Urine Creatinine Random 106.5 .Urine Prot/Creat Ratio 64.80 .Renal Panel 03/02/[address] [address] .Albumin 3.8 .Calcium 9.5 .Carbon Dioxide 23 .Chloride 98 .Phosphorus 3.7 .Potassium 4.1 .Sodium 137 .BUN 28 .GFR 39 High 20 .Creatinine-LC 1.7 .Ua 03/02/[address] [address] [phone] Ua Appearance clear Ua Bilirubin - Ua Blood - Ua Color yellow Ua Epithelial Cells QL 0-2 Ua Glucose 3+ Ua Ketones - Ua Leuko - Ua Nitrite - Ua PH Test Strip 5.5 Ua Protein - Ua RBC l Ua Specific Leslie 1.010 .Urine Protein/Creat . Random 03/02/[address] [address] .Urine Protein Random 7.8 .Urine Creatinine Random 61.8 .Urine Prot/Creat Ratio 126.20 .Renal Panel 10/30/[address] [address] [phone] .Albumin 3.9 .Calcium 9.7 .Carbon Dioxide 26 .Chloride 102 .Potassium 4.4 .Sodium 136 .BUN 27 .GFR 39 High 20 .Creatinine-LC 1.7 .Ua 10/30/[address] [address] Ua Appearance Clear Ua Bilirubin Negative Ua Blood Negative Ua Color Yellow Ua Glucose Negative Ua Ketones Negative Ua Leuko Negative Ua Nitrite Negative Ua PH Test Strip 5.0 Ua Protein Trace Ua RBC 0-3 Ua Source CC Ua Specific Leslie 1.010 Ua Urobilinogen 0.2 Ua WBC 0-5 .Urine Protein/Creat . Random 10/30/[address] [address] .Urine Protein Random 19.5 .Urine Creatinine Random 117.1 .Urine Prot/Creat Ratio 166.50 .Ua 07/03/[address] [address] Ua Appearance CLEAR Ua Bilirubin - Ua Blood - Ua Color YELLOW Ua Epithelial Cells QL 0-2 Ua Glucose 1+ Ua Ketones - Ua Leuko - Ua Nitrite - Ua PH Test Strip 5.5 Ua Protein - Ua RBC 0-3 Ua Source CLEAN CATCH .Urine Protein/Creat . Random 07/03/[address] [address] .Urine Protein Random 10.2 .Urine Creatinine Random 105.2 .Urine Prot/Creat Ratio 97.00 .Renal Panel 07/03/[address] [address] .Albumin 3.6 .Calcium 9.1 .Carbon Dioxide 26 .Chloride 102 .Phosphorus 3.0 .Potassium 4.4 .Sodium 135 .BUN 32 .GFR 39 High 20 .Creatinine-LC 1.7 .Renal Panel 02/26/[address] [address] .Albumin 3.8 .Calcium 9.5 .Carbon Dioxide 26 .Chloride 98 .Phosphorus 3.3 .Potassium 4.7 .Sodium 133 .BUN 26 .GFR - Low 20 .GFR 42 High 20 .Creatinine-LC 1.6 .Ua 02/26/[address] [address] [phone] Ua Appearance clear Ua Bilirubin neg Ua Blood neg Ua Color yellow Ua Epithelial Cells QL 0-2 Ua Glucose neg Ua Ketones neg Ua Leuko neg Ua Nitrite neg Ua PH Test Strip 5.5 Ua Protein neg Ua RBC 0-3 Ua Source clean catch Ua Specific Leslie 1.020 Ua Urobilinogen 0.2 Ua WBC 0-5 .Urine Protein/Creat . Random 02/26/[address] [address] .Urine Protein Random 16.7 .Urine Creatinine Random 89.2 .Urine Prot/Creat Ratio 187.20 .Renal Panel 10/24/[address] [address] [phone] .Albumin 4.0 .Calcium 9.2 .Carbon Dioxide 24 .Chloride 102 .Phosphorus 3.9 .Potassium 4.5 .Sodium 135 .BUN 37 .Creatinine-LC 1.7 Creatinine Ser - .GFR - Low 20 .GFR 40 High 20 .Ua 10/24/[address] [address] Ua Appearance clear Ua Bacteria - Ua Bilirubin negative Ua Blood negative Ua Casts - Ua Casts Other - Ua Color yellow Ua Crystals Unidentified - Ua Epithelial Cells QL 0-2 Ua Glucose negative Ua Ketones negative Ua Leuko negative Ua Nitrite negative Ua PH Test Strip 6.0 Ua Protein negative Ua RBC 0-3 Ua Source clean catch Ua Specific Leslie 1.010 Ua Urobilinogen 0.2 Ua WBC 0-5 Ua Yeast - .Urine Protein/Creat . Random 10/24/[address] [address] [phone] .Urine Protein Random <6.0 .Urine Creatinine Random 41.4 .Urine Prot/Creat Ratio UTC .Ipth 10/24/2020 [facility] [address] [place] [address] .Ipth 33 Urinalysis 07/08/2020 [facility] [address] [place] [address] Ua Spec Desc Clean Catch Color YELLOW Yellow Clarity CLEAR Clear Specific Leslie 1.015 1.005-1.03 0 PH 6.0 5.0-9.0 Protein NEGATIVE Negative Glucose NEGATIVE Negative Ketones NEGATIVE Negative Urobilinogen 0.2 EU/dL 0.0-1.0 Hemoglobin NEGATIVE Negative Nitrite NEGATIVE Negative Leukocytes 0-5 /HPF 0-5 Bilirubin NEGATIVE Negative Lupus.Plasma/ Lupus.RBC 0-3 /HPF 0-3 Epithelial Cells.Squamous 0-2 /HPF 0-2 Bacteria TRACE /HPF Trace BMP 07/08/2020 [facility] [address] [place] [address] Glucose 190 mg/dL 55-199 1 Urea Nitrogen 31 mg/dL High 5-21 Creatinine 1.8 mg/dL High 0.5-1.3 Urea Nitrogen/Creati nine 17 NoUnits 10-20 Calcium 9.2 mg/dL 8.9-11.1 Sodium 136 mmol/L 135-145 Potassium 4.6 mmol/L 3.5-5.3 Chloride 102 mmol/L 101-111 Carbon Dioxide 26 mmol/L 21-31 Anion Gap 13 mEq/L 6-16 Egfr 07/08/2020 [facility] [address] [place] [address] Glomerular Filtration Rate/1.73 SQ M.Predicted.Non Black 37 mL/min/1.73m2 Low >=59 2 Glomerular Filtration Rate/1.73 SQ M.Predicted.Davy ck 45 mL/min/1.73m2 Low >=59 3 Albumin 07/08/2020 [facility] [address] [place] [address] Albumin 3.8 gm/dL 3.3-5.0 4 Phosphorus 07/08/[address] [address] [phone] Phosphorus 3.1 mg/dL 1.9-4.6 5 .Urine Protein/Creat . Random 02/29/[address] [address]641 [phone] .Urine Protein Random 17.1 .Urine Creatinine Random 129.4 .Urine Prot/Creat Ratio 132 .Ua 02/29/[address] [address] [phone] Ua Appearance clear Ua Bilirubin negative Ua Blood negative Ua Color yellow Ua Epithelial Cells QL 0-2 Ua Glucose negative Ua Ketones negative Ua Leuko negative Ua Nitrite negative Ua PH Test Strip 5.5 Ua Protein negative Ua Specific Leslie 1.015 Ua Urobilinogen 0.2 Ua WBC 0-5 .Renal Panel 02/29/[address] [address] [phone] .Albumin 3.8 .Calcium 9.2 .Carbon Dioxide 26 .Chloride 100 .Creatinine-LC 1.9 .Phosphorus 3.1 .Sodium 132 .BUN 24 .GFR-LC 35 High 20 .Potassium 4.0 .Renal Panel 11/08/[address] [address] .Albumin 3.4 .Calcium 9.6 .Carbon Dioxide 25 .Chloride 107 .Creatinine-LC 1.8 .Phosphorus 3.3 .Sodium 140 .BUN 25 .GFR-LC 37 High 20 .Potassium 4.4 .Renal Panel 06/06/2019 [facility] (000)-000-0 000 .Albumin 3.4 .Calcium 8.9 .Carbon Dioxide 25 .Chloride 108 .Creatinine-LC 1.4 .Phosphorus 3.9 .Sodium 139 .BUN 21 .GFR-LC 50 High 20 .Potassium 4.0 .Renal Panel 03/23/[address] [address] [phone] .Albumin 3.9 .Calcium 9.2 .Carbon Dioxide 23 .Chloride 106 .Creatinine-LC 2.6 .Phosphorus 3.4 .Sodium 137 .BUN 47 .Potassium 5.4 .Ua 03/23/[address] [address] [phone] Ua Appearance CLEAR Ua Color YELLOW Ua Glucose NEGATIVE Ua Ketones NEGATIVE Ua Leuko NEGATIVE Ua Nitrite NEGATIVE Ua PH Test Strip 5.0 Ua Protein NEGATIVE Ua RBC 0-3 Ua Specific Leslie 1.015 Ua Urobilinogen 0.2 Ua WBC 0-5 .Renal Panel [address] [address] .Albumin 3.7 .Calcium 9.3 .Carbon Dioxide 19 .Chloride 108 .Creatinine-LC 2.0 .Phosphorus 2.6 .Sodium 139 .BUN 40 .GFR-LC 33 High 20 .Potassium 4.7 .Renal Panel 08/05/[address] [address] [phone] .Albumin 3.8 .Calcium 9.3 .Carbon Dioxide 23 .Chloride 105 .Creatinine-LC 2.0 .Phosphorus 2.8 .Sodium 136 .BUN 42 .GFR-LC 33 High 20 .Potassium 4.7 .Renal Panel - 04/18/[address] [address] [phone] .Albumin 3.6 .Calcium 9.3 .Carbon Dioxide 26 .Phosphorus 3.0 .Potassium 4.8 .Sodium 140 .BUN 40 .Chloride 110 .Creatinine-M C 04/18/[address] [address] .Creatinine-LC 1.8 .GFR 45 High 20 .GFR 37 High 20 .Renal Panel - 12/03/[address] [address] [phone] .Albumin 3.9 .Calcium 9.5 .Carbon Dioxide 25 .Phosphorus 3.2 .Potassium 4.3 .Sodium 139 .BUN 39 .Chloride 100 .Creatinine-M C 12/03/[address] [address] .Creatinine-LC 2.0 .GFR 40 High 20 .GFR 33 High 20 .Creatinine-M C 09/09/[address] [address] [phone] .Creatinine-LC 2.4 .GFR 33 High 20 .GFR 27 High 20 .Renal Panel - MC 09/09/[address] [address] .Albumin 3.9 .Calcium 9.4 .Carbon Dioxide 26 .Phosphorus 3.0 .Potassium 5.0 .Sodium 137 .BUN 46 .Chloride 104 .Ua 09/09/[address] [address] Ua Appearance CLEAR Ua Bilirubin NEG Ua Blood NEG Ua Color YELLOW Ua Epithelial Cells QL 0-2 Ua Glucose 2+ Ua Ketones NEG Ua Leuko NEG Ua Nitrite NEG Ua PH Test Strip 5.5 Ua Protein NEG Ua RBC 0-3 Ua Source CLEAN CATCH Ua Specific Leslie 1.015 Ua Urobilinogen 0.2 Ua WBC 0-5 .Hematocrit 09/09/[address] [address] [phone] .Hematocrit 32.0 .Hemoglobin Blood 09/09/[address] [address] .Hemoglobin Blood 10.8 .Ipth 09/09/[address] [address] [phone] .Ipth 38 .Urine Protein/Creat . Random 09/09/[address] [address] [phone] .Urine Protein Random <6.0 .Urine Creatinine Random 132.9 .BMP W/Egfr-LC 05/27/[address] [address] .Sodium 136 .Potassium 4.7 .Chloride 106 .Carbon Dioxide 24 .Calcium 9.2 .Glucose Serum 249 .GFR-LC 30 High 20 .Creatinine-LC 2.2 .BUN 47 .BMP W/Egfr-LC 01/22/2017 [facility] [address] [place] [address] [phone] .Sodium 136 .Potassium 4.5 .Chloride 106 .Carbon Dioxide 23 .Calcium 9.0 .Glucose Serum 201 .GFR-LC 33 High 20 .Creatinine-LC 2.0 .BUN 37 .Ipth 11/17/2016 [facility] (000)-000-0 000 .Ipth 33 .Vitamin D, 25 Hydroxy 11/17/2016 [facility] (000)-000-0 000 .Vitamin D, 25 Hydroxy 42 .CMP 11/17/2016 [facility] (000)-000-0 000 .Albumin 3.5 .Alt 21 .Calcium 9.8 .Carbon Dioxide 23 .Chloride 109 .Creatinine-LC 2.5 .Glucose Serum 136 .Alkaline Phos 69 .Potassium 4.9 .Protein-Total 7.1 .Sodium 4.9 .Ast 13 .BUN 47 .GFR 26 High 20 .Renin-Serum 09/08/2016 [facility] [address] [place] [address] [phone] .Renin-Serum 1.265 .Renal Panel -LC 09/08/[address] [address] [phone] .Albumin 3.7 .Calcium 9.7 .Carbon Dioxide 23 .Chloride 108 .Creatinine-LC 1.8 .Phosphorus 3.4 .Sodium 138 .BUN 41 .GFR-LC 37 High 20 .Potassium 4.6 .Urinalysis-R outine 09/08/[address] [address] [phone] Ua Specific Leslie 1.015 Ua PH Test Strip 5.5 Ua Color YELLOW Ua Appearance CLEAR Ua WBC 0-5 Ua Protein 2+ Ua Glucose NEG Ua Ketones NEG Ua Bilirubin NEG Ua Urobilinogen 0.2 Ua Nitrite NEG Ua Occult Blood NEG .Hematocrit 09/08/[address] [address] .Hematocrit 30.0 .Hemoglobin Blood 09/08/[address] [address] [phone] .Hemoglobin Blood 10.2 .Ipth 09/08/2016 [facility] [address] [place] [address] [phone] .Ipth 33 .Urine Protein/Creat . Random 09/08/2016 [facility] [address] [place] [address] .Urine Protein Random 115.2 .Urine Creatinine Random 97.2 .Potassium 08/21/2016 [facility] (000)-000-0 000 .Potassium 4.5 .Magnesium 08/21/2016 [facility] (000)-000-0 000 .Magnesium 1.5 .Glucose Serum 08/21/2016 [facility] (000)-000-0 000 .Glucose Serum 87 .Carbon Dioxide 08/21/2016 [facility] (000)-000-0 000 .Carbon Dioxide 23 .Chloride 08/21/2016 [facility] (000)-000-0 000 .Chloride 109 .Sodium 08/21/2016 [facility] (000)-000-0 000 .Sodium 138 .GFR-LC 08/21/2016 [facility] (000)-000-0 000 .GFR-LC 37 High 20 .Creatinine-L C 08/21/2016 [facility] (000)-000-0 000 .Creatinine-LC 1.8 .BUN 08/21/2016 [facility] (000)-000-0 000 .BUN 29 .Hemoglobin And Hematocrit 08/21/2016 [facility] (000)-000-0 000 .Hemoglobin Blood 9.0 .Hematocrit 26.6 .Glucose Serum 08/20/2016 [facility] (000)-000-0 000 .Glucose Serum 212 .Calcium 08/20/2016 [facility] (000)-000-0 000 .Calcium 9.6 .Carbon Dioxide 08/20/2016 [facility] (000)-000-0 000 .Carbon Dioxide 21 .Chloride 08/20/2016 [facility] (000)-000-0 000 .Chloride 108 .Potassium 08/20/2016 [facility] (000)-000-0 000 .Potassium 4.3 .GFR-LC 08/20/2016 [facility] (000)-000-0 000 .GFR-LC 35 High 20 .Creatinine-L C 08/20/2016 [facility] (000)-000-0 000 .Creatinine-LC 1.9 .BUN 08/20/2016 [facility] (000)-000-0 000 .BUN 35 .Hemoglobin And Hematocrit 08/20/2016 [facility] (000)-000-0 000 .Hemoglobin Blood 8.8 .Hematocrit 26.0 .Ua 08/20/2016 [facility] (000)-000-0 000 Ua Appearance CLEAR Ua Bilirubin NEG Ua Blood 3+ Ua Color YELLOW Ua Epithelial Cells QL 0-2 Ua Glucose NEG Ua Ketones NEG Ua Leuko NEG Ua PH Test Strip 5.5 Ua Protein 1+ Ua RBC 0-3 Ua Specific Leslie 1.010 Ua Urobilinogen 0.2 Ua WBC 0-5 .Sodium 08/20/2016 [facility] (000)-000-0 000 .Sodium 136 .Urinalysis-R outine 07/10/[address] [address] Ua Specific Leslie 1.010 Ua PH Test Strip 5.0 Ua Color STRAW Ua Appearance CLEAR Ua WBC 0-5 Ua Protein 1+ Ua Glucose NEG Ua Ketones NEG Ua Bilirubin NEG Ua Urobilinogen 0.2 Ua Nitrite NEG Ua Occult Blood NEG .Aldosterone- Serum 07/10/[address] [address] [phone] .Aldosterone-Se rum 1.2 Renal Panel 07/10/[address] [address] [phone] .Albumin 3.9 .Calcium 9.9 .Carbon Dioxide 23 .Chloride 109 .Creatinine-LC 2.2 .Phosphorus 4.0 .Potassium 4.5 .Sodium 139 .BUN 49 .GFR-LC 30 High 20 .Free Light Chains 07/10/[address] [address] [place] Light Chains QN Ser 53.28 Lambda Light Chain QN Ser 29.16 .Urine Protein/Creat . Random 07/10/[address] [address] .Urine Protein Random 59.2 .Urine Creatinine Random 47.4 .Complement Total (CH50) 07/10/[address] [place] [address] .Complement Total (CH50) 59 .Complement C4 07/10/[address] [address] .Complement C4 33 .Anti-Protein ase-3 AB 07/10/[address] [address] .Anti-Proteinas e-3 AB <3.5 .Anti-Myelope roxidase Abs 07/10/[address] [address] .Anti-Myelopero xidase Abs <9.0 .Jane AB Screen-Screen Only-lc 07/10/[address] [address] [phone] .Jane AB Screen-Screen Only-lc NEG .Immunofixati on-Urine 07/10/[address] [address] [phone] .Immunofixation -Urine NO MONOCLONALITC .Immunofixati on-Serum 07/10/[address] [address] .Immunofixation -Serum NO MONOCLONALITC .Ipth 07/10/[address] [address] [phone] .Ipth 28 .Magnesium 07/10/[address] [address]96 .Magnesium 1.8 .Complement C3 07/10/[address] [address] .Complement C3 127 .Hemoglobin And Hematocrit 04/08/2016 [facility] (000)-000-0 000 .Hemoglobin Blood 10.9 .Hematocrit 33.4 .CMP 04/08/2016 [facility] (000)-000-0 000 .Albumin 3.3 .Alt 19 .Calcium 9.5 .Carbon Dioxide 22 .Chloride 112 .Creatinine-LC 1.8 .Glucose Serum 70 .Alkaline Phos 49 .Potassium 3.5 .Protein-Total 6.5 .Sodium 146 .Ast 13 .BUN 31 .Lipid Panel 04/08/2016 [facility] (000)-000-0 000 .Cholesterol 112 High Density Lipoprotein 57 .LDL Cholesterol 49 .Triglycerides 53 .Urinalysis-R outine 07/11/2015 [facility] (000)-000-0 000 Ua Specific Leslie 1.013 Ua PH Test Strip 5.00 Ua Color YELLOW Ua Appearance CLEAR Ua WBC <1 Ua Protein TRACE Ua Glucose NEG Ua Ketones NEG Ua Bilirubin NEG Ua Nitrite NEG Ua Occult Blood NEG .Lipid Panel 07/11/2015 [facility] (000)-000-0 000 .Cholesterol 86 High Density Lipoprotein 40 .LDL Cholesterol 40 .Triglycerides 79 .CMP 07/11/2015 [facility] (000)-000-0 000 .Albumin 3.6 .Alt 20 .Calcium 9.4 .Carbon Dioxide 26 .Chloride 112 .Creatinine-LC 1.4 .Glucose Serum 100 .Alkaline Phos 50 .Potassium 4.4 .Protein-Total 6.6 .Sodium 145 .Ast 11 .BUN 31 .Hemoglobin And Hematocrit 07/11/2015 [facility] (000)-000-0 000 .Hemoglobin Blood 10.7 .Hematocrit 32.7 .Urinalysis-R outine 04/16/2015 [facility] (000)-000-0 000 Ua Specific Leslie 1.010 Ua PH Test Strip 6.50 Ua Color YELLOW Ua Appearance CLEAR Ua WBC <1 Ua Protein 30 Ua Glucose NEG Ua Ketones NEG Ua Bilirubin NEG Ua Nitrite NEG Ua Occult Blood NEG .Hemoglobin And Hematocrit 04/16/2015 [facility] (000)-000-0 000 .Hemoglobin Blood 11.5 .Hematocrit 35.4 .CMP 04/16/2015 [facility] (000)-000-0 000 .Albumin 3.7 .Alt 18 .Calcium 10.1 .Carbon Dioxide 27 .Chloride 109 .Creatinine-LC 1.2 .Glucose Serum 133 .Alkaline Phos 52 .Potassium 4.4 .Protein-Total 6.7 .Sodium 142 .Ast 11 .BUN 25 .Lipid Panel 04/16/2015 [facility] (000)-000-0 000 .Cholesterol 105 High Density Lipoprotein 42 .LDL Cholesterol 48 .Triglycerides 62 .BMP W/Egfr-LC 03/27/2015 [facility] (000)-000-0 000 .Sodium 139 .Potassium 4.7 .Chloride 108 .Carbon Dioxide 27.0 .Calcium 10.2 .Glucose Serum 170 .GFR-LC 51 High 20 .Creatinine-LC 1.38 .BUN 26.0 .BMP W/Egfr-LC 03/20/2015 [facility] (000)-000-0 000 .Sodium 141 .Potassium 5.1 .Chloride 105 .Carbon Dioxide 28.0 .Calcium 10.2 .BUN 24.0 .BMP W/Egfr-LC 03/13/2015 [facility] (000)-000-0 000 .Sodium 139 .Potassium 4.8 .Chloride 104 .Carbon Dioxide 28.0 .Calcium 9.7 .GFR-LC 41 High 20 .BMP W/Egfr-LC 05/03/2014 [facility] (000)-000-0 000 .Sodium 142 .Potassium 4.5 .Chloride 107 .Carbon Dioxide 28.0 .Calcium 9.7 .Creatinine-LC 1.01 .BUN 29.0 1 If this glucose resu lt represents a fasting glucose, interpretation should refer to the following reference range: 55-99 mg/dL 2 Chronic kidney disea se could be indicated at eGFR's of less than 60 mL/min/1.73m2. Kidney failure is indicated at less than 15 mL/min/1.73m2. 3 eGFR is race adjuste d. AA=. 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, unspecified Office Visit 11/23/2023 11:00a [facility] EUSEBIO Godfrey I12.9 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 N18.32 Chronic kidney disea se, stage 3b I50.22 Chronic systolic (co ngestive) heart failure D63.1 Anemia in chronic ki dney disease 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, unspecified Office Visit 04/30/2023 3:30p [facility] ARTURO MilanC I12.9 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 N18.31 Chronic kidney disea se, stage 3a I50.22 Chronic systolic (co ngestive) heart failure D63.1 Anemia in chronic ki dney disease Office Visit 11/17/2022 1:30p [facility] EUSEBIO Cullen 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, unspecified I12.9 Hypertensive chronic kidney disease w stg 1-4/unsp chr kdny N18.32 Chronic kidney disea se, stage 3b 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 I50.22 Chronic systolic (co ngestive) heart failure D63.1 Anemia in chronic ki dney disease Office Visit 08/10/2022 3:30p [facility] Rox Sigala 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, 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 I50.22 Chronic systolic (co ngestive) heart failure N18.32 Chronic kidney disea se, stage 3b N17.9 Acute kidney failure , unspecified Office Visit 03/12/2022 3:00p [facility] Rox Sigala 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, 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 I50.22 Chronic systolic (co ngestive) heart failure N18.32 Chronic kidney disea se, stage 3b Office Visit 11/05/2021 3:00p [facility] Rox Sigala 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, 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 I50.22 Chronic systolic (co ngestive) heart failure N18.32 Chronic kidney disea se, stage 3b Office Visit 07/09/2021 3:40p [facility] Werner Scruggs MD 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, 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 I50.22 Chronic systolic (co ngestive) heart failure N18.32 Chronic kidney disea se, stage 3b Office Visit 03/05/2021 3:30p [facility] Rox Sigala 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, 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 I50.22 Chronic systolic (co ngestive) heart failure N18.32 Chronic kidney disea se, stage 3b Office Visit 11/13/2020 10:40a [facility] Werner Scruggs MD 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, 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 I50.22 Chronic systolic (co ngestive) heart failure N18.32 Chronic kidney disea se, stage 3b Office Visit 07/19/2020 2:00p [facility] Rox Sigala 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, 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 I50.22 Chronic systolic (co ngestive) heart failure N18.32 Chronic kidney disea se, stage 3b Office Visit 03/14/2020 1:40p [facility] Werner Scruggs MD 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, 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 I50.22 Chronic systolic (co ngestive) heart failure N18.32 Chronic kidney disea se, stage 3b Office Visit 11/15/2019 3:00p [facility] Werner Scruggs MD 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, unspecified N18.3 Chronic kidney disea se, stage 3 (moderate) I12.9 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 I50.22 Chronic systolic (co ngestive) heart failure Office Visit 03/30/2019 11:40a [facility] Werner Scruggs MD 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, unspecified N18.3 Chronic kidney disea se, stage 3 (moderate) I12.9 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 N17.9 Acute kidney failure , unspecified I50.22 Chronic systolic (co ngestive) heart failure Office Visit 11/30/2018 10:40a [facility] Werner Scruggs MD 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, unspecified N18.3 Chronic kidney disea se, stage 3 (moderate) I12.9 Hypertensive chronic kidney disease w [facility] 1-4/unsp [facility] 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 I50.22 Chronic systolic (co ngestive) heart failure Office Visit 08/12/2018 1:20p [facility] Werner Scruggs MD 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, unspecified N18.3 Chronic kidney disea se, stage 3 (moderate) I12.9 Hypertensive chronic kidney disease w [facility] 1-4/unsp [facility] kdny I50.22 Chronic systolic (co ngestive) heart failure Office Visit 04/25/2018 2:20p [facility] Werner Scruggs MD 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, unspecified N18.3 Chronic kidney disea se, stage 3 (moderate) 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 I12.9 Hypertensive chronic kidney disease w [facility] 1-4/unsp [facility] kdny I50.22 Chronic systolic (co ngestive) heart failure Office Visit 12/10/2017 3:00p [facility] Werner Scruggs MD 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, unspecified N18.3 Chronic kidney disea se, stage 3 (moderate) 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 I12.9 Hypertensive chronic kidney disease w stg 1-4/unsp chr kdny I50.22 Chronic systolic (co ngestive) heart failure Office Visit 09/16/2017 1:20p [facility] Werner Scruggs MD 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, unspecified N18.3 Chronic kidney disea se, stage 3 (moderate) I13.10 Hyp hrt & chr kdny d is w/o hrt fail, 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 N18.4 Chronic kidney disea se, stage 4 (severe) D63.1 Anemia in chronic ki dney disease Office Visit 06/02/2017 1:00p [facility] Werner Scruggs MD 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, unspecified N18.3 Chronic kidney disea se, stage 3 (moderate) I13.10 Hyp hrt & chr kdny d is w/o hrt fail, 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 D63.1 Anemia in chronic ki dney disease Office Visit 01/27/2017 1:20p [facility] Werner Scruggs MD 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, unspecified I10 Essential (primary) hypertension N18.3 Chronic kidney disea se, stage 3 (moderate) E11.22 Type 2 diabetes wesly itus w diabetic chronic kidney disease Office Visit 09/23/2016 3:00p [facility] Werner Scruggs MD 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, unspecified N18.3 Chronic kidney disea se, stage 3 (moderate) I10 Essential (primary) hypertension E11.22 Type 2 diabetes wesly itus w diabetic chronic kidney disease Office Visit 07/23/2016 9:40a [facility] Yoni Jarrell I13.10 Hyp hrt & chr kdny dis w/o hrt fail, w stg 1-4/unsp chr kdny E11.22 Type 2 diabetes wesly itus w diabetic chronic kidney disease N18.3 Chronic kidney disea se, stage 3 (moderate) Z79.1 assisted (current) use of non-steroidal non-inflam (Nsaid) N17.9 Acute kidney failure , unspecified Office Visit 05/01/2016 1:00p [facility] Yoni Jarrell I13.10 Hyp hrt & chr kdny dis w/o hrt fail, w stg 1-4/unsp chr kdny E11.22 Type 2 diabetes wesly itus w diabetic chronic kidney disease N18.3 Chronic kidney disea se, stage 3 (moderate) I50.32 Chronic diastolic (c ongestive) heart failure Z79.1 assisted (current) use of non-steroidal non-inflam (Nsaid) Assessments Date Code Description Provider 07/11/2024 I12.9 Hypertensive chr onic kidney disease with stage 1 through stage 4 chronic kidney disease, or unspecified chronic kidney disease EUSEBIO Cullen 07/11/2024 E11.21 Type 2 diabetes mellitus with diabetic nephropathy ARTURO CullenC 07/11/2024 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, stag e 3b ARTURO CullenC 07/11/2024 I50.22 Chronic systolic (congestive ) heart failure Barb Loza NP-C 07/11/2024 D63.1 Anemia in chronic kidney dis ease ARTURO CullenC 07/11/2024 N11.9 Chronic tubulo-i nterstitial nephritis, unspecified Barb Loza NP-C 11/23/2023 I12.9 Hypertensive chr onic kidney disease with stage 1 through stage 4 chronic kidney disease, or unspecified chronic kidney disease ARTURO CullenC 11/23/2023 E11.21 Type 2 diabetes mellitus with diabetic nephropathy ARTURO CullenC 11/23/2023 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, stag e 3b Barb Loza NP-C 11/23/2023 I50.22 Chronic systolic (congestive ) heart failure Barb Loza NP-C 11/23/2023 D63.1 Anemia in chronic kidney dis ease Barb Loza NP-C 11/23/2023 N11.9 Chronic tubulo-i nterstitial nephritis, unspecified Barb Loza NP-C 04/30/2023 I12.9 Hypertensive chr onic kidney disease with stage 1 through stage 4 chronic kidney disease, or unspecified chronic kidney disease Barb Loza NP-C 04/30/2023 E11.21 Type 2 diabetes mellitus with diabetic nephropathy Barb Loza NP-C 04/30/2023 N18.31 Chronic kidney disease, stag e 3a Barb Loza NP-C 04/30/2023 I50.22 Chronic systolic (congestive ) heart failure Barb 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 OPERATOR-C 04/30/2023 D63.1 Anemia in chronic kidney dis ease Barb Loza NP-C 11/17/2022 N11.9 Chronic tubulo-i nterstitial nephritis, unspecified Barb Loza 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 MACHINE OPERATOR-C 11/17/2022 I12.9 Hypertensive chr onic kidney disease with stage 1 through stage 4 chronic kidney disease, or unspecified chronic kidney disease Barb Loza NP-C 11/17/2022 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, stag e 3b Barb Loza NP-C 11/17/2022 E11.21 Type 2 diabetes mellitus with diabetic nephropathy Barb Loza NP-C 11/17/2022 I50.22 Chronic systolic (congestive ) heart failure Barb Loza NP-C 11/17/2022 D63.1 Anemia in chronic kidney dis ease Barb Loza NP-C 08/10/2022 N11.9 Chronic tubulo-i nterstitial nephritis, unspecified [place], Rox 08/10/2022 I12.9 Hypertensive chr onic kidney disease with stage 1 through stage 4 chronic kidney disease, or unspecified chronic kidney disease Jovon Rox 08/10/2022 E11.21 Type 2 diabetes mellitus with diabetic nephropathy [place], Rox 08/10/2022 I50.22 Chronic systolic (congestive ) heart failure [place] Rox 08/10/2022 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, stag e 3b [place], Rox 08/10/2022 N17.9 Acute kidney failure, unspec ified Jov[place], Rox 03/12/2022 N11.9 Chronic tubulo-i nterstitial nephritis, unspecified [place], Rox 03/12/2022 I12.9 Hypertensive chr onic kidney disease with stage 1 through stage 4 chronic kidney disease, or unspecified chronic kidney disease JovonRox 03/12/2022 E11.21 Type 2 diabetes mellitus with diabetic nephropathy [place]ox 03/12/2022 I50.22 Chronic systolic (congestive ) heart failure JovonRox 03/12/2022 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, stag e 3b [place] 11/05/2021 N11.9 Chronic tubulo-i nterstitial nephritis, unspecified JovonRox 11/05/2021 I12.9 Hypertensive chr onic kidney disease with stage 1 through stage 4 chronic kidney disease, or unspecified chronic kidney disease [place]Rox 11/05/2021 E11.21 Type 2 diabetes mellitus with diabetic nephropathy Rox Sigala 11/05/2021 I50.22 Chronic systolic (congestive ) heart failure Rox Sigala 11/05/2021 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, stag e 3b Rox Sigala 07/09/2021 N11.9 Chronic tubulo-i nterstitial nephritis, unspecified Werner Scruggs MD 07/09/2021 I12.9 Hypertensive chr onic kidney disease with stage 1 through stage 4 chronic kidney disease, or unspecified chronic kidney disease Werner Scruggs MD 07/09/2021 E11.21 Type 2 diabetes mellitus with diabetic nephropathy Werner Scruggs MD 07/09/2021 I50.22 Chronic systolic (congestive ) heart failure Werner Scruggs MD 07/09/2021 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, stag e 3b Werner Scruggs MD 03/05/2021 N11.9 Chronic tubulo-i nterstitial nephritis, unspecified Rox Sigala 03/05/2021 I12.9 Hypertensive chr onic kidney disease with stage 1 through stage 4 chronic kidney disease, or unspecified chronic kidney disease Rox Sigala 03/05/2021 E11.21 Type 2 diabetes mellitus with diabetic nephropathy Rox Sigala 03/05/2021 I50.22 Chronic systolic (congestive ) heart failure Rox Sigala 03/05/2021 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, stag e 3b Rox Sigala 11/13/2020 N11.9 Chronic tubulo-i nterstitial nephritis, unspecified Werner Scruggs MD 11/13/2020 I12.9 Hypertensive chr onic kidney disease with stage 1 through stage 4 chronic kidney disease, or unspecified chronic kidney disease Werner Scruggs MD 11/13/2020 E11.21 Type 2 diabetes mellitus with diabetic nephropathy Werner Scruggs MD 11/13/2020 I50.22 Chronic systolic (congestive ) heart failure Werner Scruggs MD 11/13/2020 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, stag e 3b Werner Scruggs MD 07/19/2020 N11.9 Chronic tubulo-i nterstitial nephritis, unspecified Rox Sigala 07/19/2020 I12.9 Hypertensive chr onic kidney disease with stage 1 through stage 4 chronic kidney disease, or unspecified chronic kidney disease Rox Sigala 07/19/2020 E11.21 Type 2 diabetes mellitus with diabetic nephropathy Rox Sigala 07/19/2020 I50.22 Chronic systolic (congestive ) heart failure Rox Sigala 07/19/2020 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, stag e 3b Rox Sigala 03/14/2020 N11.9 Chronic tubulo-i nterstitial nephritis, unspecified Werner Scruggs MD 03/14/2020 I12.9 Hypertensive chr onic kidney disease with stage 1 through stage 4 chronic kidney disease, or unspecified chronic kidney disease Werner Scruggs MD 03/14/2020 E11.21 Type 2 diabetes mellitus with diabetic nephropathy Werner Scruggs MD 03/14/2020 I50.22 Chronic systolic (congestive ) heart failure Werner Scruggs MD 03/14/2020 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, stag e 3b Werner Scruggs MD 11/15/2019 N11.9 Chronic tubulo-i nterstitial nephritis, unspecified Werner Scruggs MD 11/15/2019 N18.3 Chronic kidney disease, stag e 3 (moderate) Werner Scruggs MD 11/15/2019 I12.9 Hypertensive chr onic kidney disease with stage 1 through stage 4 chronic kidney disease, or unspecified chronic kidney disease Werner Scruggs MD 11/15/2019 E11.21 Type 2 diabetes mellitus with diabetic nephropathy Werner Scruggs MD 11/15/2019 I50.22 Chronic systolic (congestive ) heart failure Werner Scruggs MD 03/30/2019 N11.9 Chronic tubulo-i nterstitial nephritis, unspecified Werner Scruggs MD 03/30/2019 N18.3 Chronic kidney disease, stag e 3 (moderate) Werner Scruggs MD 03/30/2019 I12.9 Hypertensive chr onic kidney disease with stage 1 through sta Werner Scruggs MD 03/30/2019 E11.21 Type 2 diabetes mellitus with diabetic nephropathy Werner Scruggs MD 03/30/2019 N17.9 Acute kidney failure, unspec ified Werner Scruggs MD 03/30/2019 I50.22 Chronic systolic (congestive ) heart failure Werner Scruggs MD 11/30/2018 N11.9 Chronic tubulo-i nterstitial nephritis, unspecified Werner Scruggs MD 11/30/2018 N18.3 Chronic kidney disease, stag e 3 (moderate) Werner Scruggs MD 11/30/2018 I12.9 Hypertensive chr onic kidney disease with stage 1 through sta Werner Scruggs MD 11/30/2018 E11.21 Type 2 diabetes mellitus with diabetic nephropathy Werner Scruggs MD 11/30/2018 I50.22 Chronic systolic (congestive ) heart failure Werner Scruggs MD 08/12/2018 N11.9 Chronic tubulo-i nterstitial nephritis, unspecified Werner Scruggs MD 08/12/2018 N18.3 Chronic kidney disease, stag e 3 (moderate) Werner Scruggs MD 08/12/2018 I12.9 Hypertensive chr onic kidney disease with stage 1 through sta Werner Scruggs MD 08/12/2018 I50.22 Chronic systolic (congestive ) heart failure Werner Scruggs MD 04/25/2018 N11.9 Chronic tubulo-i nterstitial nephritis, unspecified Werner Scruggs MD 04/25/2018 N18.3 Chronic kidney disease, stag e 3 (moderate) Werner Scruggs MD 04/25/2018 E11.21 Type 2 diabetes mellitus with diabetic nephropathy Werner Scruggs MD 04/25/2018 I12.9 Hypertensive chr onic kidney disease with stage 1 through sta Werner Scruggs MD 04/25/2018 I50.22 Chronic systolic (congestive ) heart failure Werner Scruggs MD 12/10/2017 N11.9 Chronic tubulo-i nterstitial nephritis, unspecified Werner Scruggs MD 12/10/2017 N18.3 Chronic kidney disease, stag e 3 (moderate) Werner Scruggs MD 12/10/2017 E11.21 Type 2 diabetes mellitus with diabetic nephropathy Werner Scruggs MD 12/10/2017 I12.9 Hypertensive chr onic kidney disease with stage 1 through stage 4 chronic kidney disease, or unspecified chronic kidney disease Werner Scruggs MD 12/10/2017 I50.22 Chronic systolic (congestive ) heart failure Werner Scruggs MD 09/16/2017 N11.9 Chronic tubulo-i nterstitial nephritis, unspecified Werner Scruggs MD 09/16/2017 N18.3 Chronic kidney disease, stag e 3 (moderate) Werner Scruggs MD 09/16/2017 I13.10 Hypertensive hea rt and chronic kidney disease without heart failure, with stage 1 through stage 4 chronic kidney disease, or unspecified chronic kidney disease Werner Scruggs MD 09/16/2017 E11.21 Type 2 diabetes mellitus with diabetic nephropathy Werner Scruggs MD 09/16/2017 N18.4 Chronic kidney disease, stag e 4 (severe) Werner Scruggs MD 09/16/2017 D63.1 Anemia in chronic kidney dis ease Werner Scruggs MD 06/02/2017 N11.9 Chronic tubulo-i nterstitial nephritis, unspecified Werner Scruggs MD 06/02/2017 N18.3 Chronic kidney disease, stag e 3 (moderate) Werner Scruggs MD 06/02/2017 I13.10 Hypertensive hea rt and chronic kidney disease without heart failure, with stage 1 through stage 4 chronic kidney disease, or unspecified chronic kidney disease Werner Scruggs MD 06/02/2017 E11.21 Type 2 diabetes mellitus with diabetic nephropathy Werner Scruggs MD 06/02/2017 D63.1 Anemia in chronic kidney dis ease Werner Scruggs MD 01/27/2017 N11.9 Chronic tubulo-i nterstitial nephritis, unspecified Werner Scruggs MD 01/27/2017 I10 Essential (primary) david Scruggs MD 01/27/2017 N18.3 Chronic kidney disease, stag e 3 (moderate) Werner Scruggs MD 01/27/2017 E11.22 Type 2 diabetes mellitus with diabetic chronic kidney disease Werner Scruggs MD 09/23/2016 N11.9 Chronic tubulo-i nterstitial nephritis, unspecified Werner Scruggs MD 09/23/2016 N18.3 Chronic kidney disease, stag e 3 (moderate) Werner Scruggs MD 09/23/2016 I10 Essential (primary) david Scruggs MD 09/23/2016 E11.22 Type 2 diabetes mellitus with diabetic chronic kidney disease Werner Scruggs MD 08/15/2016 N11.9 Chronic tubulo-i nterstitial nephritis, unspecified Carlton Mcguire M.D. 08/15/2016 N17.9 Acute kidney failure, unspec ified Carlton Mcguire M.D. 08/15/2016 N18.3 Chronic kidney disease, stag e 3 (moderate) Carlton Mcguire M.D. 08/15/2016 I10 Essential (primary) david Mcguire M.D. 08/14/2016 N11.9 Chronic tubulo-i nterstitial nephritis, unspecified Werner Scruggs MD 08/14/2016 N17.9 Acute kidney failure, unspec ified Werner Scruggs MD 08/14/2016 N18.3 Chronic kidney disease, stag e 3 (moderate) Werner Scruggs MD 08/14/2016 I10 Essential (primary) david Scruggs MD 08/13/2016 N11.9 Chronic tubulo-i nterstitial nephritis, unspecified Werner Scruggs MD 08/13/2016 N17.9 Acute kidney failure, unspec ified Werner Scruggs MD 08/13/2016 N18.3 Chronic kidney disease, stag e 3 (moderate) Werner Scruggs MD 08/13/2016 I10 Essential (primary) hyperten citlalli Werner Scruggs MD 08/12/2016 N11.9 Chronic tubulo-i nterstitial nephritis, unspecified Young Ren M.D. 08/12/2016 N17.9 Acute kidney failure, unspec ified Young Ren M.D. 08/12/2016 N18.3 Chronic kidney disease, stag e 3 (moderate) Young Ren M.D. 08/12/2016 I10 Essential (primary) hyperten citlalli Young Ren M.D. 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 nt) use of non-steroidal anti-inflammatories (Nsaid) Werner Scruggs MD 07/23/2016 N17.9 Acute kidney failure, unspec ified Werner Scruggs MD 05/01/2016 I13.10 Hypertensive hea rt and chronic kidney disease without heart failure, with stage 1 through stage 4 chronic kidney disease, or unspecified chronic kidney disease Werner Scruggs MD 05/01/2016 E11.22 Type 2 diabetes mellitus with diabetic chronic kidney disease Werner Scruggs MD 05/01/2016 N18.3 Chronic kidney disease, stag e 3 (moderate) Werner Scruggs MD 05/01/2016 I50.32 Chronic diastoli c (congestive) heart failure Werner Scruggs MD 05/01/2016 Z79.1 assisted (curre nt) use of non-steroidal anti-inflammatories (Nsaid) Werner Scruggs MD
--- OUTSIDE RECORDS SUMMARY | 2024-08-17 10:31 | XMS_ITS | Encounter Summary ---
Author Organization [facility] Address [address] [place] [address] Care Team Providers Care Rehabilitation Program Coordinator Name Role Phone Jayy Dutta MD Primary Care Provider [phone] Encounter Details Date Type Department Care Team (Late st Contact Info) Description 05/18/2024 Abstract [facility] [address] [place] [id number] Unallocated, [facility], [address] [place], [place] [id number] Social History Tobacco Use Types Packs/Day Years Used Date Smoking Tobacco: Never Smokeless Tobacco: Never Alcohol Use Standard Drinks/Week [...] 1:00 PM EDT Office Visit [facility]EIR[facility] [address] [place] [phone] Rox Cervantes NP [address] [place] [address] 01/25/2025 1:05 PM EST Office Visit [facility] [address] [place] [phone] Zulema Alonso MD [address] [place] [address] documented as of this encounter Visit Diagnoses Not on filedocumented in this encounter Care Teams Rehabilitation Program Coordinator Relationship Specialty Start Date End Date Jayy Dutta MD PCP - General Family Medicine 10/09/22 documented as of this encounter
--- OUTSIDE RECORDS SUMMARY | 2024-08-17 10:31 | XMS_ITS | Clinical Summary ---
Author Organization [facility] Address [address] [place] [address] Care Team Providers Care Auto Self Service Station Attendant Name Role Phone Unavailable Primary Care Provider Unavailabl e Social History Tobacco Use Types Packs/Day Years Used Date Smoking Tobacco: Never Assessed Sex and Gender Information Value Date Recorded Sex Assigned at Not on file Gender Identity Not on file Sexual Orientation Not on file Plan of Treatment Health Maintenance Due Date Last Done Comments Diabetes: Hemoglobin A1C 1945 Medicare Annual Wellness (AWV) 1945 Diabetes: Retinopathy Screening 11/26/1955 Depression Screening 1957 Diabetes: Urine Protein Screening 1964 Zoster Vaccines (1 of 2) 11/26/1995 Fall Risk Screening 2010 COVID-19 Vaccine ( season) 2023 Influenza Vaccine (Season Ended) 2024 12/20/2018, 11/24/2016 Adult Tetanus 12/09/2032 12/09/2022 Pneumococcal Vaccine: 65+ Years Completed 09/03/2021, 02/19/2018, 02/19/2018, Additional history exists HIB Vaccines Aged Out No longer eligi ble based on patient's age to complete this topic HPV Vaccines Aged Out No longer eligi ble based on patient's age to complete this topic IPV Vaccines Aged Out No longer eligi ble based on patient's age to complete this topic Meningococcal B Vaccine Aged Out No l onger eligible based on patient's age to complete this topic Meningococcal Vaccine Aged Out No marshall brissa eligible based on patient's age to complete this topic Rotavirus Vaccines Aged Out No longer eligible based on patient's age to complete this topic
--- OUTSIDE RECORDS SUMMARY | 2024-08-17 10:31 | XMS_ITS | Encounter Summary ---
Author Organization [facility] Address [address] [place] [address] Phone Care Team Providers Care Integration Assistant Name Role Phone TanikaManfred lerner Amanda REYES Primary Care Provider Encounter Details Date Type Department Care Team (Late st Contact Info) Description 10/29/2022 Scanned Document [facility] [address] [place] [address] Conversion, Onbase Social History Tobacco Use Types [...] Description 11/07/2024 10:30 AM EDT Office Visit [address] [place] [address] Johanna Martines MD [address] [facility] [address] [place] [address] documented as of this encounter Procedures Procedure Name Priority Date/Time Associated Diagnosis Comments OUTSIDE GENERIC TESTING 10/29/2022 documented in this encounter Results * OUTSIDE GENERIC TESTING (10/29/2022) Anatomical Region Laterality Modality Other Narrative 10/29/2022 Ordered by an unspecified provider. us Onbase Conversion OUTSIDE SCAN Final Result documented in this encounter Visit Diagnoses Not on filedocumented in this encounter Care Teams Integration Assistant Relationship Specialty Start Date End Date Manfred Dueñas DO [address] [phone] PCP - General 03/22/99 documented as of this encounter
--- OUTSIDE RECORDS SUMMARY | 2024-08-17 10:31 | XMS_ITS | Encounter Summary ---
Author Organization [facility] Address [address] [place] [address] Phone Care Team Providers Care Infusion Therapy Nurse Name Role Phone Manfred Dueñas DO Primary Care Provider [phone] Encounter Details Date Type Department Care Team (Late st Contact Info) Description 05/11/2019 Orders Only [facility] [address] [place] [address] Conversion, Onbase Social History Tobacco Use Types [...] Description 11/07/2024 10:30 AM EDT Office Visit [address] [place] [address] Johanna Martines MD [address] [facility] [address] [place] [address] Scheduled Orders Name Type Priority Associated Diagnoses Orde r Schedule OUTSIDE LAB SCAN Lab Ordered: 05/11/2019 documented as of this encounter Visit Diagnoses Not on filedocumented in this encounter Care Teams Infusion Therapy Nurse Relationship Specialty Start Date End Date Manfred Dueñas DO [address] [place] [address] PCP - General 03/22/99 documented as of this encounter
--- OUTSIDE RECORDS SUMMARY | 2024-08-17 10:31 | XMS_ITS | Encounter Summary ---
Author Organization [facility] Address [address] [place] [address] Phone Care Team Providers Care C Architect Name Role Phone Manfred Dueñas DO Primary Care Provider [phone] Encounter Details Date Type Department Care Team (Late st Contact Info) Description 05/28/2022 Orders Only [facility] [address] [place] [address] Conversion, Onbase Social History Tobacco Use Types [...] Description 11/07/2024 10:30 AM EDT Office Visit [address] [place] [address] Johanna Martines MD 703 [facility] [address] [place] [address] Scheduled Orders Name Type Priority Associated Diagnoses Orde r Schedule OUTSIDE LAB SCAN Lab Ordered: 05/28/2022 documented as of this encounter Visit Diagnoses Not on filedocumented in this encounter Care Teams C Architect Relationship Specialty Start Date End Date Manfred Dueñas DO [address] [place] [address] PCP - General 03/22/99 documented as of this encounter
--- OUTSIDE RECORDS SUMMARY | 2024-08-17 10:31 | XMS_ITS | Clinical Summary ---
Author Organization [facility] Address [facility] [place] [address] Care Team Providers Care Cosmetic Chemist Name Role Phone NavdeepKoko almazan Primary Care Provider Linus Jones Unavailable [phone] Allergies Active Allergy Reactions Criticality Noted Date Comments Metoprolol Other: See Comments 04/09/2014 Bradycardia Fosinopril Sodium Cough 01/07/2005 Strawberries Rash 04/22/2005 Tomato Intolerance 01/07/2005 Medications ASPIRIN 325 MG TAB Take one(1) tablet daily. 0 01/08/20 05 Active LANTUS 100 UNIT/ML SUB-Q 40 units am and pm 0 08/26/19 06 Active HYDRALAZINE HCL (HYDRALAZINE ORAL) Take 100 mg by mouth three times daily. Active Terazosin HCl (HYTRIN) 10 mg capsule Take 10 mg by mouth daily at bedtime. Active simvastatin (ZOCOR) 10 mg tablet Take 10 mg by mouth daily at bedtime. Active omeprazole (PRILOSEC) 20 mg capsule Take 20 mg by mouth once daily. Active INSULN ASP PRT/INSULIN ASPART (NOVOLOG MIX 70-30 SUBCUTANEOUS) Inject 4 Units subcutaneously three times daily. Plus sliding scale Active cholecalciferol (VITAMIN D3) 1,000 unit tab Take 1,000 Units by mouth three times daily. Active CA CITRATE/MGOX/ T D3/B6/MIN (CALCIUM CITRATE + D WITH MAG ORAL) Take 1 Packet by mouth once daily. Active Multivitamin capsule Take 1 capsule by mouth once daily. Active diphenhydrAMINE (BENADRYL) 25 mg capsule Take 25 mg by mouth as needed. Active CYANOCOBALAMIN, VITAMIN B-12, (VITAMIN B-12 ORAL) Take by mouth once daily. Active spironolactone (ALDACTONE) 50 mg tablet Take 0.5 tablets by mouth once daily. 90 tablet 3 10/01/19 16 Active amLODIPine (NORVASC) 10 mg tablet Take by mouth once daily. Active metFORMIN (GLUCOPHAGE) 500 mg tabletIndicatio ns:Essential hypertension,CK D (chronic kidney disease), unspecified stage,SOB (shortness of breath) Take by mouth twice daily with meals. Active Valsartan-Munden chlorothiazide (DIOVAN HCT) 160-25 mg per tabletIndicatio ns:Essential hypertension,CK D (chronic kidney disease), unspecified stage,SOB (shortness of breath) Take 1 tablet by mouth once daily. 90 tablet 3 04/22/19 17 Active isosorbide mononitrate ER (IMDUR) 60 mg 24 hr tabletIndicatio ns:Essential hypertension,CK D (chronic kidney disease), unspecified stage,SOB (shortness of breath) Take 1 tablet by mouth once daily. 30 tablet 04/22/19 17 Active cloNIDine HCl (CATAPRES) 0.1 mg tabletIndicatio ns:Essential hypertension,CK D (chronic kidney disease), unspecified stage,SOB (shortness of breath) Take 1 tablet by mouth twice daily. 180 tablet 3 04/22/19 17 Active furosemide (LASIX) 20 mg tablet Take 1 tablet by mouth twice daily. 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 Hypertrophy of prostate with urinary obstruction and other lower urinary tract symptoms (LUTS) 01/07/2005 Psoriasis Hypertension Hypercholesterolemia CAD (coronary artery disease) GERD (gastroesophageal reflux disease) IDDM (insulin dependent diabetes mellitus) Family History Medical History Relation Comments COPD Brother Heart Brother mi/ rheumatic fe annika as child kidney failure [Other] Father COPD Mother Diabetes Mother Heart Mother mi liver failure [Other] Sister Relation Status Comments Brother Father Mother Sister Social History Tobacco Use Types Packs/Day Years Used Date Smoking Tobacco: Former Cigarettes 1 34 0 07/06/1960 - 07/06/1994 Alcohol Use Standard Drinks/Week Comments No 0 (1 standard drink = 0.6 oz pur e alcohol) Area Deprivation Index Answer Date Jeet rded National Score (1-100), lower number is lower ri sk Not on file 02/25/2020 State Score (1-10), lower number is lower risk N ot on file 02/25/2020 Data from: https://www.neighborhoodatlas.medicine.[facility]/. Last address used for calculation Not on file 02/25/2020 Sex and Gender Information Value Date Recorded Sex Assigned at Not on file Legal Sex Male 7:33 AM EST Gender Identity Not on file Sexual Orientation Not on file Occupation Industry Job Start Date Job End Date Retired Not on file Not on file Not on file Last Filed Vital Signs Vital Sign Reading Time Taken Comments Blood Pressure 120/80 05/25/2016 9:53 AM EST Pulse 45 05/25/2016 9:53 AM EST Temperature 36.1 C (97 F) 04/02/2015 9:03 AM EST Respiratory Rate 18 05/25/2016 9:53 AM EST Oxygen Saturation 98% 05/25/2016 9:53 AM EST Inhaled Oxygen Concentration - - Weight 108.9 kg (240 lb) 05/25/2016 9:53 AM EST Height 180.3 cm (5' 11 ) 05/25/2016 9:53 AM EST Body Mass Index 33.47 05/25/2016 9:53 AM EST Plan of Treatment Health Maintenance Due Date Last Done Comments Anxiety Screening 11/26/1963 Depression Screening 11/26/1963 Hepatitis C Screening 11/26/1963 DTaP,Tdap,Td Vaccine (1 - Tdap) 1964 Pneumococcal Vaccine: 50+ (1 of 1 - PCV) 11/26/1995 Shingrix Vaccine (1 of 2) 11/26/1995 Diabetes Screening 06/18/2008 06/18/2005 RSV Vaccine (1 - 1-dose 75+ series) 2020 Covid-19 Vaccine ( - season) 2023 Advance Directive Discussion 03/22/2024 Influenza Vaccine (Season Ended) 2024 Procedures Procedure Name Priority Date/Time Associated Diagnosis Comments BASIC METABOLIC PANEL 06/18/2005 10:15 AM EST from Last 3 Months or Most Recently Relevant to Health Maintenance Results * (ABNORMAL) BASIC METABOLIC PNL (06/18/2005 10:15 AM EST) Glucose 261(A) 65 - 100 mg/dL [facility] BUN 21 10 - 25 mg/dL [facility] Creatinine 1.1 0.7 - 1.4 mg/dL [facility] Sodium 139 135 - 146 mmol/L [facility] Potassium 4.5 3.5 - 5.0 mmol/L [facility] Chloride 98 98 - 110 mmol/L [facility] CO2 27 23 - 32 mmol/L [facility] Anion Gap 14 0 - 15 mmol/L [facility] Calcium 10.8(A) 8.5 - 10.5 mg/dL [facility] 06/18/2005 10:1 5 AM EST Kaleigh Jang LABORATORY Final Result [facility] [address] [place] [address] from Last 3 Months or Most Recently Relevant to Health Maintenance Insurance [employer] MEDICARE Care Teams Cosmetic Chemist Relationship Specialty Start Date End Date Koko Sethi DO PCP - General Family Medicine 05/10/14 Linus Jones [address] [place] [id number] Primary Staff Physician Cardiology 06/07/18
--- OUTSIDE RECORDS SUMMARY | 2024-08-17 10:31 | XMS_ITS | Patient Health Record ---
Author Organization [facility] Address [address] [facility] [address] [place] [address] Care Team Providers Care Supervisor Hot Dip Tinning Name Role Phone TYSON LEOS Unavailable [phone] MANUEL WU Unavailable [phone] Reason For Referral No Information Problems Problem Type SNOMED Code ICD Code Onset Dates Problem Status W/U Status Risk Notes Problem Obstructive sleep apnea syndrome (disorder) (97451272) Obstructive sleep apnea (adult) (pediatric) (G47.33) Active confirmed Problem Heart failure (94263028) Heart failure, unspecified (I50.9) Active confirmed Problem Chronic obstructive pulmonary disease (36161773) Chronic obstructive pulmonary disease, unspecified (J44.9) Active confirmed Problem Chronic respiratory failure (16251698) Chronic respiratory failure with hypoxia (J96.11) Active confirmed Problem Chronic respiratory failure (79760825) Chronic respiratory failure with hypercapnia (J96.12) Active confirmed Encounters Encounter Location Date Provider Diagnosis [address] [place] [address] 05/27/2024 TYSON LEOS Respiratory failure, unspecified, unspecified whether with hypoxia or hypercapnia J96.90 ; Chronic obstructive pulmonary disease, unspecified J44.9 ; Obstructive sleep apnea (adult) (pediatric) G47.33 and Heart failure, unspecified I50.9 [place] [address] [place] [address] 05/30/2024 MANUEL WU Chronic respiratory failure with hypoxia J96.11 ; Chronic respiratory failure with hypercapnia J96.12 ; Chronic obstructive pulmonary disease, unspecified J44.9 ; Obstructive sleep apnea (adult) (pediatric) G47.33 and Heart failure, unspecified I50.[address] [place] [address] 06/03/2024 TYSON LEOS Chronic respiratory failure with hypoxia J96.11 ; Chronic respiratory failure with hypercapnia J96.12 ; Chronic obstructive pulmonary disease, unspecified J44.9 ; Obstructive sleep apnea (adult) (pediatric) G47.33 and Heart failure, unspecified I50.[address] [place] [address] 06/06/2024 TYSON LEOS Chronic respiratory failure with hypoxia J96.11 ; Chronic respiratory failure with hypercapnia J96.12 ; Chronic obstructive pulmonary disease, unspecified J44.9 ; Obstructive sleep apnea (adult) (pediatric) G47.33 and Heart failure, unspecified I50.[address] [place] [address] 06/10/2024 TYSON LEOS Chronic respiratory failure with hypoxia J96.11 ; Chronic respiratory failure with hypercapnia J96.12 ; Chronic obstructive pulmonary disease, unspecified J44.9 ; Obstructive sleep apnea (adult) (pediatric) G47.33 and Heart failure, unspecified I50.[address] [place] [address] 06/13/2024 MANUEL WU Chronic respiratory failure with hypoxia J96.11 ; Chronic respiratory failure with hypercapnia J96.12 ; Chronic obstructive pulmonary disease, unspecified J44.9 ; Obstructive sleep apnea (adult) (pediatric) G47.33 and Heart failure, unspecified I50.[address] [place] [address] 06/17/2024 TYSON LEOS Chronic respiratory failure with hypoxia J96.11 ; Chronic respiratory failure with hypercapnia J96.12 ; Chronic obstructive pulmonary disease, unspecified J44.9 ; Obstructive sleep apnea (adult) (pediatric) G47.33 and Heart failure, unspecified I50.[address] [place] [address] 06/20/2024 TYSON LEOS Chronic respiratory failure with hypoxia J96.11 ; Chronic respiratory failure with hypercapnia J96.12 ; Chronic obstructive pulmonary disease, unspecified J44.9 ; Obstructive sleep apnea (adult) (pediatric) G47.33 and Heart failure, unspecified I50.[address] [place] [address] 06/24/2024 TYSON LEOS Chronic respiratory failure with hypoxia J96.11 ; Chronic respiratory failure with hypercapnia J96.12 ; Chronic obstructive pulmonary disease, unspecified J44.9 ; Obstructive sleep apnea (adult) (pediatric) G47.33 and Heart failure, unspecified I50.9 [facility] [address] [address] [place] [address] 06/27/2024 MANUEL WU Chronic respiratory failure with hypoxia J96.11 ; Chronic respiratory failure with hypercapnia J96.12 ; Chronic obstructive pulmonary disease, unspecified J44.9 ; Obstructive sleep apnea (adult) (pediatric) G47.33 and Heart failure, unspecified I50.9 Assessments Encounter Date Diagnosis (ICD Code) Assessment Notes Treatment Notes Treatment Clinical Notes Section Notes 05/27/2024 Chronic obstructive pulmonary disease, unspecified (ICD-10 - J44.9) 05/27/2024 Respiratory failure, unspecified, unspecified whether with hypoxia or hypercapnia (ICD-10 - J96.90) 05/30/2024 Chronic respiratory failure with hypoxia (ICD-10 - J96.11) 05/30/2024 Chronic respiratory failure with hypercapnia (ICD-10 - J96.12) 06/03/2024 Chronic respiratory failure with hypoxia (ICD-10 - J96.11) 06/06/2024 Chronic respiratory failure with hypoxia (ICD-10 - J96.11) 06/10/2024 Chronic respiratory failure with hypoxia (ICD-10 - J96.11) 06/13/2024 Chronic respiratory failure with hypoxia (ICD-10 - J96.11) 06/17/2024 Chronic respiratory failure with hypoxia (ICD-10 - J96.11) 06/20/2024 Chronic respiratory failure with hypoxia (ICD-10 - J96.11) 06/24/2024 Chronic respiratory failure with hypoxia (ICD-10 - J96.11) 06/27/2024 Chronic respiratory failure with hypoxia (ICD-10 - J96.11) 06/27/2024 Chronic respiratory failure with hypercapnia (ICD-10 - J96.12) 06/24/2024 Chronic respiratory failure with hypercapnia (ICD-10 - J96.12) 06/20/2024 Chronic respiratory failure with hypercapnia (ICD-10 - J96.12) 06/17/2024 Chronic respiratory failure with hypercapnia (ICD-10 - J96.12) 06/13/2024 Chronic respiratory failure with hypercapnia (ICD-10 - J96.12) 06/10/2024 Chronic respiratory failure with hypercapnia (ICD-10 - J96.12) 06/06/2024 Chronic respiratory failure with hypercapnia (ICD-10 - J96.12) 06/03/2024 Chronic respiratory failure with hypercapnia (ICD-10 - J96.12) 05/27/2024 Obstructive sleep apnea (adult) (pediatric) (ICD-10 - G47.33) 05/30/2024 Chronic obstructive pulmonary disease, unspecified (ICD-10 - J44.9) 06/03/2024 Chronic obstructive pulmonary disease, unspecified (ICD-10 - J44.9) 05/27/2024 Heart failure, unspecified (ICD-10 - I50.9) 05/30/2024 Obstructive sleep apnea (adult) (pediatric) (ICD-10 - G47.33) 06/06/2024 Chronic obstructive pulmonary disease, unspecified (ICD-10 - J44.9) 06/10/2024 Chronic obstructive pulmonary disease, unspecified (ICD-10 - J44.9) 06/13/2024 Chronic obstructive pulmonary disease, unspecified (ICD-10 - J44.9) 06/17/2024 Chronic obstructive pulmonary disease, unspecified (ICD-10 - J44.9) 06/20/2024 Chronic obstructive pulmonary disease, unspecified (ICD-10 - J44.9) 06/24/2024 Chronic obstructive pulmonary disease, unspecified (ICD-10 - J44.9) 06/27/2024 Chronic obstructive pulmonary disease, unspecified (ICD-10 - J44.9) 06/27/2024 Obstructive sleep apnea (adult) (pediatric) (ICD-10 - G47.33) 06/20/2024 Obstructive sleep apnea (adult) (pediatric) (ICD-10 - G47.33) 06/24/2024 Obstructive sleep apnea (adult) (pediatric) (ICD-10 - G47.33) 06/17/2024 Obstructive sleep apnea (adult) (pediatric) (ICD-10 - G47.33) 06/10/2024 Obstructive sleep apnea (adult) (pediatric) (ICD-10 - G47.33) 06/13/2024 Obstructive sleep apnea (adult) (pediatric) (ICD-10 - G47.33) 05/30/2024 Heart failure, unspecified (ICD-10 - I50.9) 06/03/2024 Obstructive sleep apnea (adult) (pediatric) (ICD-10 - G47.33) 06/06/2024 Obstructive sleep apnea (adult) (pediatric) (ICD-10 - G47.33) 06/06/2024 Heart failure, unspecified (ICD-10 - I50.9) 06/03/2024 Heart failure, unspecified (ICD-10 - I50.9) 06/13/2024 Heart failure, unspecified (ICD-10 - I50.9) 06/10/2024 Heart failure, unspecified (ICD-10 - I50.9) 06/17/2024 Heart failure, unspecified (ICD-10 - I50.9) 06/24/2024 Heart failure, unspecified (ICD-10 - I50.9) 06/20/2024 Heart failure, unspecified (ICD-10 - I50.9) 06/27/2024 Heart failure, unspecified (ICD-10 - I50.9) 05/30/2024 Other Seen in collaboration and discussed plan of care with Dr. Tyson Leos 06/06/2024 Other I have seen and examined the patient with Manuel HART who also participated in data collection and structuring the note. At the end, I reviewed the note and I agree with the findings and plan of care. MANUEL HART 06/13/2024 Other Seen in collaboration and discussed plan of care with Dr. Tyson Leos 06/27/2024 Other Seen in collaboration and discussed plan of care with Dr. Tyson Leos Plan Of Treatment No Information Insurance Providers Payer Name Payer Address Payer Phone Subscriber Number Group Number Insured Name Patient Relationship to Insured Coverage Start Date Coverage End Date [employer] [place] [address] [place] [place] [address] [place] [address] [id number] Roel Zamarripa Self - patient is the insured [employer] [address] [place] [address] [id number] Roel Zamarripa Self - patient is the insured
--- OUTSIDE RECORDS SUMMARY | 2024-08-17 10:31 | XMS_ITS | Encounter Summary ---
Author Organization [facility] Address [address] [place] [address] Phone Care Team Providers Care Detailer Furniture Name Role Phone Manfred Deuñas DO Primary Care Provider [phone] Encounter Details Date Type Department Care Team (Late st Contact Info) Description 05/26/2024 Scanned Document [facility] [address] [place] [id number] Scanning, Generic Provider Social History Tobacco Use [...] Description 11/07/2024 10:30 AM EDT Office Visit [place] [address] [place] [address] Johanna Martines MD [address] [facility] [address] [place] [address] documented as of this encounter Visit Diagnoses Not on filedocumented in this encounter Additional Health Concerns Assessment Noted Time A fall risk assessment has been complete d for the patient 03/01/2024 11:13 AM EST documented as of this encounter Care Teams Detailer Furniture Relationship Specialty Start Date End Date Manfred Dueñas DO [address] [place] [id number] PCP - General 03/22/99 documented as of this encounter
--- OUTSIDE RECORDS SUMMARY | 2024-08-17 10:31 | XMS_ITS | Clinical Summary ---
Author Organization [facility] [facility] Address [id number] [address] [place] [address] Care Team Providers Care Public Works Laborer Name Role Phone Jayy Dutta MD Primary Care Provider [phone] Allergies Active Allergy Reactions Criticality Noted Date Comments Metoprolol Other (See Comments) 12/09/2022 Drops BP too much Fosinopril Cough Low 12/09/2022 Medications terazosin (HYTRIN) 10 mg capsule Take 1 capsule (10 mg total) by mouth nightly. Active hydrALAZINE (APRESOLINE) 50 mg tablet Take 2 tablets (100 mg total) by mouth 3 (three) times a day. Active simvastatin (ZOCOR) 20 mg tablet Take 1 tablet (20 mg total) by mouth nightly. Active amLODIPine (NORVASC) 10 mg tablet Take 1 tablet (10 mg total) by mouth in the morning. Active spironolactone (ALDACTONE) 25 mg tablet Take 1 tablet (25 mg total) by mouth in the morning. Active furosemide (LASIX) 20 mg tablet Take 1 tablet (20 mg total) by mouth 2 (two) times a day before meals. Active allopurinoL (ZYLOPRIM) 300 mg tablet Take 1 tablet (300 mg total) by mouth in the morning. Active aspirin 81 mg Take 1 tablet (81 mg total) by mouth once a week. Active carvediloL (COREG) 6.25 mg tablet Take 1 tablet (6.25 mg total) by mouth in the morning and 1 tablet (6.25 mg total) in the evening. Take with meals. Active semaglutide (OZEMPIC) 1 mg/dose (2 mg/1.5 mL) pen injector Inject 1 mg under the skin once a week. Active glipiZIDE (GLUCOTROL) 5 mg tablet Take 1 tablet (5 mg total) by mouth every morning. 10 mg with dinner Active sildenafiL (VIAGRA) 100 mg tablet Take 1 tablet (100 mg total) by mouth as needed for erectile dysfunction. 06/16/2023 Active omeprazole (PriLOSEC) 20 mg capsule Take 1 capsule (20 mg total) by mouth in the morning. Active insulin glargine (LANTUS) 100 unit/mL injectionIndica tions:type 2 diabetes mellitus Inject 0.26 mL (26 Units total) under the skin in the morning and 0.26 mL (26 Units total) before bedtime. Indications: type 2 diabetes mellitus. Active apixaban (ELIQUIS) 5 mg tablet Take 1 tablet (5 mg total) by mouth in the morning and 1 tablet (5 mg total) before bedtime. Active empagliflozin (JARDIANCE) 25 mg tablet tablet Take 0.5 tablets (12.5 mg total) by mouth in the morning. Active Immunizations Immunization Administration Dates Next Due Tdap 12/09/2022 Social History Tobacco Use Types Packs/Day Years Used Date Smoking Tobacco: Former Cigarettes Smokeless Tobacco: Former Tobacco Cessation:Counseling Given: Not Answered Alcohol Use Standard Drinks/Week Comments Not Currently 0 (1 standard drink = 0.6 oz pur e alcohol) Childcare Answer Date Recorded Childcare Unknown 08/31/2018 Employment Answer Date Recorded Employment Unknown 08/31/2018 Hunger Screening Answer Date Recorded Within the past 12 months we worried whether our food would run out before we got money to buy more. Never True 02/19/2024 Within the past 12 months th e food we bought just didn't last and we didn't have money to get more. Never True 02/19/2024 Purpose - Life Answer Date Recorded Purpose and direction in life Unknown Sex and Gender Information Value Date Recorded Sex Assigned at Not on file Legal Sex Male 12:07 PM EDT Gender Identity Not on file Sexual Orientation Not on file Last Filed Vital Signs Vital Sign Reading Time Taken Comments Blood Pressure 149/65 02/19/2024 1:54 PM EST Pulse 66 02/19/2024 1:54 PM EST Temperature 36.4 C (97.6 F) 02/19/2024 1:54 PM EST Respiratory Rate 18 02/19/2024 1:54 PM EST Oxygen Saturation 97% 02/19/2024 1:54 PM EST Inhaled Oxygen Concentration - - Weight 92.1 kg (203 lb) 02/19/2024 1:54 PM EST Height 177.8 cm (5' 10 ) 02/19/2024 1:54 PM EST Body Mass Index 29.13 02/19/2024 1:54 PM EST Plan of Treatment Health Maintenance Due Date Last Done Comments Depression Screening 1957 Zoster (Shingles) Vaccine (1 of 2) 11/26/1995 Fall Risk Screening 2010 COVID-19 Vaccine (2023-2 5 season) 2024 02/03/2024, 02/04/2023, 01/14/2022, Additional history exists Influenza Vaccine 11/20/2024 11/13/2023, , 01/14/2022, Additional history exists Tobacco Screening 01/23/2025 01/24/2024 DTaP,Tdap and Td Vaccines (2 - Td or Tdap) 12/09/2032 12/09/2022 Medical Devices Not on file Insurance MEDICARE [employer] Care Teams Public Works Laborer Relationship Specialty Start Date End Date Jayy Dutta MD PCP - General Family Medicine 12/09/22
--- OUTSIDE RECORDS SUMMARY | 2024-08-17 10:31 | XMS_ITS | Encounter Summary ---
Author Organization [facility] Address [address] [place] [address] Care Team Providers Care Advertising Agency Manager Name Role Phone Jayy Dutta MD Primary Care Provider [phone] Encounter Details Date Type Department Care Team (Late st Contact Info) Description 11/12/2022 Abstract [facility] [address] [place] [phone] Ankita Sheets NP Social History Tobacco Use Types Packs/Day Years [...] 1:00 PM EDT Office Visit [facility] [address] [place] [address] Rox Cervantes NP [address] [place], [place] 01/25/2025 1:05 PM EST Office Visit [facility] [address] [place] [address] Zulema Alonso MD [address] [place] [address] documented as of this encounter Visit Diagnoses Not on filedocumented in this encounter Care Teams Advertising Agency Manager Relationship Specialty Start Date End Date Jayy Dutta MD PCP - General Family Medicine 10/09/22 documented as of this encounter
--- OUTSIDE RECORDS SUMMARY | 2024-08-17 10:31 | XMS_ITS | Clinical Summary ---
Author Organization [facility] Address [address] [place] [address] Phone Care Team Providers Care Doula Name Role Phone DemarcuszulayManfred DO Primary Care Provider [phone] Allergies Active Allergy Reactions Criticality Noted Date Comments Enalapril Cough 02/09/2023 Metoprolol Cough 02/09/2023 [place] Other 05/16/2014 Medications acetaminophen (TylenoL) 325 mg capsule Take 1 capsule (325 mg) by mouth every 6 hours if needed. Active allopurinol (Zyloprim) 300 mg tablet Take 1 tablet (300 mg) by mouth once daily. 1 Active apixaban (Eliquis) 5 mg tablet Take 1 tablet (5 mg) by mouth 2 times a day. 2 Active aspirin 81 mg EC tablet Take 1 tablet (81 mg) by mouth 1 (one) time per week. 2 Active CALCIUM CARBONATE-VITAMI N D3 ORAL Take 1 tablet by mouth once daily. Active carvedilol (Coreg) 6.25 mg tablet Take 1 tablet (6.25 mg) by mouth 2 times a day. 1 Active cyanocobalamin, vitamin B-12, (Vitamin B-12) 1,000 mcg tablet extended release Take 1 tablet (1,000 mcg) by mouth once daily. Active insulin glargine (Lantus U-100 Insulin) 100 unit/mL injection Inject under the skin. 2 Active semaglutide (Ozempic) 1 mg/dose (2 mg/1.5 mL) pen injector Inject 1 mg under the skin 1 (one) time per week. Active simvastatin (Zocor) 20 mg tablet Take 0.5 tablets (10 mg) by mouth once daily at bedtime. 1 Active spironolactone (Aldactone) 25 mg tablet Take 1 tablet (25 mg) by mouth once daily. 1 Active terazosin (Hytrin) 10 mg capsule Take 1 capsule (10 mg) by mouth once daily. 1 Active multivitamin tablet Take 1 tablet by mouth once daily. Active dapagliflozin propanediol (Farxiga) 10 mg Take 0.5 tablets (5 mg) by mouth once every 24 hours. Active furosemide (Lasix) 20 mg tablet Take 1 tablet (20 mg) by mouth 3 times daily (morning, midday, late afternoon). Active finasteride (Proscar) 5 mg tablet Take 1 tablet (5 mg) by mouth once daily. Do not crush, chew, or split. Active magnesium oxide (Mag-Ox) 400 mg tablet Take 1 tablet (400 mg) by mouth once daily. Active psyllium (Metamucil) 3.4 gram packet Take 1 packet by mouth once daily. Active pantoprazole (ProtoNix) 40 mg EC tablet Take 1 tablet (40 mg) by mouth once daily in the morning. Take before meals. Do not crush, chew, or split. Active potassium chloride CR 10 mEq ER tablet Take 1 tablet (10 mEq) by mouth once daily. Do not crush, chew, or split. Active predniSONE (Deltasone) 10 mg tablet Take 1 tablet (10 mg) by mouth once daily. 7DAYS Active predniSONE (Deltasone) 10 mg tablet Take 1 tablet (10 mg) by mouth 3 times a day. 4DAYS Active linaGLIPtin (Tradjenta) 5 mg tablet Take 1 tablet (5 mg) by mouth once daily. Active valsartan (Diovan) 40 mg tablet Take 1 tablet (40 mg) by mouth 2 times a day. Active insulin asp prt-insulin aspart (NovoLOG Mix 70-30 U-100 Insuln) 100 unit/mL (70-30) injection Inject under the skin 2 times daily (morning and late afternoon). Take as directed per insulin instructions. Active melatonin 5 mg tablet,chewable Chew. 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) 02/09/2023 03/01/2024 Encounters Date Type Department Care Team Description 06/19/[address] [phone] Mercedes Dixon LPN 06/15/2024 2:30 PM EDT Office Visit [facility] [address] [facility] [address] [place] [phone] Johanna Martines MD Nonischemic cardiomyopathy (Multi) (Primary Dx); Sick sinus syndrome (Multi); Paroxysmal atrial fibrillation (Multi); Pacemaker; Mixed hyperlipidemia; Essential hypertension; Stage 4 chronic kidney disease (Multi); Non-smoker; BMI 27.0-27.9,adult; shelter resident 06/15/2024 Travel 06/08/2024 Travel 05/27/2024 Scanned Document [facility] [address] [place] [address] Scanning, Generic Provider 05/26/2024 Scanned Document [facility] [address] [place] [address] Scanning, Generic Provider 05/20/2024 Scanned Document [facility] [address] [place] [address] Scanning, Generic Provider from Last 3 Months Immunizations Immunization Administration Dates Next Due Flu vaccine, trivalent, pres ervative free, HIGH-DOSE, age 65y+ (Fluzone) 12/20/2018,11/24/2016 Influenza, seasonal, injectable 02/14/2024 Pneumococcal conjugate vaccine, 13-valent (PREVN AR 13) 12/21/2015 Pneumococcal polysaccharide vaccine, 23-valent, age 2 years and older (PNEUMOVAX 23) 02/19/2018 Pneumococcal, Unspecified 02/19/2018 Family History Medical History Relation Name Comments Heart failure Brother Rheumatic fever Brother Kidney failure Father Asthma Mother Diabetes type II Mother Heart failure Mother liver failure Sister Relation Name Status Comments Brother Father Mother Sister Social History Tobacco Use Types Packs/Day Years Used Date Smoking Tobacco: Former Cigarettes Q uit: 1992 Smokeless Tobacco: Never Tobacco Cessation:Counseling Given: Not [...] Sign Reading Time Taken Comments Blood Pressure 100/60 06/15/2024 2:44 PM EDT Pulse 72 06/15/2024 2:44 PM EDT Temperature - - Respiratory Rate - - Oxygen Saturation - - Inhaled Oxygen Concentration - - Weight 85.8 kg (189 lb 3.2 oz) 06/15/2024 2:44 P M EDT Height 177.8 cm (5' 10 ) 06/15/2024 2:44 PM EDT Body Mass Index 27.15 06/15/2024 2:44 PM EDT Plan of Treatment Upcoming Encounters Date Type Department Care Team (Late st Contact Info) Description 11/07/2024 10:30 AM EDT Office Visit [address] [place] [address] Johanna Martines MD [address] [facility] [address] [place] [address] Health Maintenance Due Date Last Done Comments Creatinine Level 1945 Diabetes: Hemoglobin A1C 1945 Diabetes: Urine Protein Screening 1945 Lipid Panel 1945 Medicare Annual Wellness Visit (AWV) 1945 Potassium Level 1945 Diabetes: Retinopathy Screening 11/26/1955 Hepatitis C Screening 11/26/1963 Zoster Vaccines (1 of 2) 11/26/1995 RSV High Risk: (Elderly (60+) or Population) (1 - 1-dose 75+ series) 2020 COVID-19 Vaccine ( season) 2024 02/03/2024, 02/04/2023, 01/14/2022, Additional history exists Echocardiogram 05/11/2025 05/11/2024, 05/09/2019 DTaP/Tdap/Td Vaccines (2 - Td or Tdap) 12/09/2032 12/09/2022 Pneumococcal Vaccine Completed 09/03/2021, 02/19/2018, 02/19/2018, Additional history exists Influenza Vaccine Completed 02/14/2024, , 02/04/2023, Additional history exists HIB Vaccines Aged Out No longer eligi ble based on patient's age to complete this topic HPV Vaccines Aged Out No longer eligi ble based on patient's age to complete this topic Hepatitis A Vaccines Aged Out No long er eligible based on patient's age to complete this topic Hepatitis B Vaccines Aged Out No long er eligible based on patient's age to complete this topic IPV Vaccines Aged Out No longer eligi ble based on patient's age to complete this topic Meningococcal Vaccine Aged Out No marshall brissa eligible based on patient's age to complete this topic Rotavirus Vaccines Aged Out No longer eligible based on patient's age to complete this topic Procedures Procedure Name Priority Date/Time Associated Diagnosis Comments OUTSIDE IMAGING SCAN 05/20/2024 ECHOCARDIOGRAM 05/11/2024 from Last 3 Months or Most Recently Relevant to Health Maintenance Results * OUTSIDE IMAGING SCAN (05/20/2024) Anatomical Region Laterality Modality Other Narrative 05/20/2024 Ordered by an unspecified provider. Generic Provider Scanning OUTSIDE SCAN Final Result * Echocardiogram (05/11/2024) Narrative 05/11/2024 Ordered by an unspecified provider. us Generic Provider Scanning CV ECHO PROCEDURES Fin al Result from Last 3 Months or Most Recently Relevant to Health Maintenance Insurance MEDICARE PART A AND B Radiant [employer] MEDICARE PART A AND B FOR [employer] Care Teams Doula Relationship Specialty Start Date End Date Manfred Dueñas DO [address] [place] [address] PCP - General 03/22/99
--- OUTSIDE RECORDS SUMMARY | 2024-08-17 10:31 | XMS_ITS | Encounter Summary ---
Author Organization [facility] Address [address] [place] [address] Phone Care Team Providers Care Sales Correspondence Clerk Name Role Phone Manfred Dueñas DO Primary Care Provider [phone] Encounter Details Date Type Department Care Team (Late st Contact Info) Description 05/27/2024 Scanned Document [facility] [address] [place] [phone] Scanning, Generic Provider Social History Tobacco Use [...] Description 11/07/2024 10:30 AM EDT Office Visit [place] [address] [place] [address] Johanna Martines MD [address] [facility] [address] [place] [address] documented as of this encounter Visit Diagnoses Not on filedocumented in this encounter Additional Health Concerns Assessment Noted Time A fall risk assessment has been complete d for the patient 03/01/2024 11:13 AM EST documented as of this encounter Care Teams Sales Correspondence Clerk Relationship Specialty Start Date End Date Manfred Dueñas DO [address] [phone] PCP - General 03/22/99 documented as of this encounter
--- OUTSIDE RECORDS SUMMARY | 2024-08-17 10:32 | XMS_ITS | Patient Health Record ---
Author Organization The [facility] in [place] Address [address] [place] [address] Care Team Providers Care Clinical Tech Name Role Phone Vinicio Dutta Primary Care Provider [phone] Rosina Mcelroy [phone] Allergies Allergen (clinical drug ingredient) Drug/Non Drug Allergy documented on EMR Reaction Allergy Type Onset Date Status metoprolol Lopressor Unknown Drug Allergy Active Monopril Unknown Drug Allergy Active Results Component Value Reference Range Notes Blood Culture 1 Reviewed date:03/05/2024 05:32:03 PM Interpretation: Performing Lab: Notes/Report: [facility] , Blood Culture 1 See Below For Report Blood Culture 1 NG5D NO GROWTH AT 5 DAYS. Performing Lab: see note ML - [facility] LB Blood Culture 2 Reviewed date:03/05/2024 05:32:03 PM Interpretation: Performing Lab: Notes/Report: [facility] , Blood Culture 2 See Below For Report Blood Culture 2 NG5D NO GROWTH AT 5 DAYS. Performing Lab: see note ML - [facility] LB CBC AUTO DIFF Reviewed date:02/28/2024 10:14:11 AM Interpretation: Performing Lab: Notes/Report: [facility] , White Blood Count 11.3 4.0-11.0 10 3/uL Red Blood Count 3.69 4.70-6.10 10 6/uL Hemoglobin 11.7 14.0-18.0 g/dL Hematocrit 35.7 42.0-54.0 % Mean Corpuscular Volume 96.7 80.0-94.0 fL Mean Corpuscular Hemoglobin 31.7 25.9-34.0 pg Mean Corpuscular HGB Conc 32.8 29.9-35.2 g/dL Red Cell Distribution Width 13.8 11.0-15.0 % Platelet Count 282 150-450 10 3/uL Mean Platelet Volume 8.8 9.5-13.5 fL Neutrophils Percent Auto 67.3 43.0-75.0 % Lymphocytes Percent Auto 19.0 20.5-60.0 % Monocytes Percent Auto 8.7 1.7-12.0 % Eosinophils Percent Auto 4.2 0.9-7.0 % Basophils Percent Auto 0.4 0.2-2.0 % Immature Granulocytes Pct Auto 0.4 0.0-0.5 % Neutrophils Absolute Auto 7.6 1.4-6.5 10 3/uL Lymphocytes Absolute Auto 2.2 1.2-3.8 10 3/uL Monocytes Absolute Auto 1.0 0.3-0.8 10 3/uL Eosinophils Absolute Auto 0.5 0.0-0.7 10 3/uL Basophils Absolute Auto 0.0 0.0-0.1 10 3/uL Immature Granulocytes Abs Auto 0.04 0.00-0.03 10 3/uL Performing Lab: see note ML - [facility] LB PROF CHEM 8 (BAS METB) Reviewed date:02/28/2024 10:14:11 AM Interpretation: Performing Lab: Notes/Report: [facility] , Sodium 140 136-145 mmol/L Potassium 3.9 3.5-5.1 mmol/L Chloride 106 98-107 mmol/L Carbon Dioxide 24.5 21.0-32.0 mmol/L Anion Gap 13.4 Glucose 172 74-106 mg/dL Blood Urea Nitrogen 31.0 7.0-18.0 mg/dL Creatinine 1.99 0.70-1.30 mg/dL Estimated GFR ( Yaa 40 >=60 mL/min/1.73m 2 Estimated GFR (Non- Maryuri 33 >=60 mL/min/1.73m 2 BUN Creatinine Ratio 15.6 Calcium 9.2 8.5-10.1 mg/dL Performing Lab: see note ML - [facility] LB MAGNESIUM Reviewed date:03/12/2024 02:11:31 PM Interpretation: Performing Lab: Notes/Report: [facility] , Magnesium 2.0 1.8-2.4 mg/dL Performing Lab: see note ML - [facility] LB PROF 14(COMP METB) Reviewed date:03/12/2024 02:11:31 PM Interpretation: Performing Lab: Notes/Report: [facility] , Sodium 142 136-145 mmol/L Potassium 3.8 3.5-5.1 mmol/L Chloride 106 98-107 mmol/L Carbon Dioxide 27.0 21.0-32.0 mmol/L Anion Gap 12.8 Glucose 165 74-106 mg/dL Blood Urea Nitrogen 28.0 7.0-18.0 mg/dL Creatinine 2.06 0.70-1.30 mg/dL Estimated GFR ( Yaa 38 >=60 mL/min/1.73m 2 Estimated GFR (Non- Maryuri 31 >=60 mL/min/1.73m 2 BUN Creatinine Ratio 13.6 Calcium 9.3 8.5-10.1 mg/dL Bilirubin Total 0.3 0.2-1.0 mg/dL Aspartate Amino Transferase 10 15-37 U/L Alanine Aminotransferase 16 16-63 U/L Alkaline Phosphatase 66 46-116 U/L Total Protein 6.0 6.4-8.2 g/dL Albumin Level 3.0 3.4-5.0 g/dL Globulin 3.0 Albumin Globulin Ratio 1.0 Performing Lab: see note ML - [facility] LB Blood Culture 1 Reviewed date:03/16/2024 05:50:27 PM Interpretation: Performing Lab: Notes/Report: [facility] , Blood Culture 1 See Below For Report Blood Culture 1 NG5D NO GROWTH AT 5 DAYS. Performing Lab: see note ML - [facility] LB Blood Culture 2 Reviewed date:03/16/2024 05:50:27 PM Interpretation: Performing Lab: Notes/Report: [facility] , Blood Culture 2 See Below For Report Blood Culture 2 NG5D NO GROWTH AT 5 DAYS. Performing Lab: see note ML - [facility] LB Box Test Reviewed date:03/16/2024 05:50:27 PM Interpretation: Performing Lab: Notes/Report: [facility] , BOX Test Sent Out 03/11/24 BOX Test Reference Lab [facility] BOX Test Date Sent 03/11/24 BOX Test Result SEE SCANNED REPORT Performing Lab: see note ML - [facility] LB XR abdomen 1V Reviewed date:03/12/2024 02:11:31 PM Interpretation: Performing Lab: Notes/Report: Source Facility: [place] [address] XRay Report Signed Patient: LEIGHTON ARCINIEGA MR#: [id number] : 1945 Acct:[id number] Age/Sex: 78 / M ADM Date: 03/11/24 Loc: ER Attending Dr: Ordering Physician: Christine Sykes M.D. Date of Service: 03/11/24 Procedure(s): XR abdomen 1V Accession Number(s): [id number] cc: Jayy Dutta M.D.; Christine Sykes M.D. [place] [address] Patient Name: LEIGHTON ARCINIEGA MRN: [id number] date: 1945 Sex: M Assigned Patient Location: ER Current Patient Location: ED.MAIN Accession/Order Number: [id number] Exam Date: 03/11/2024 03:00 Report Date: 03/11/2024 04:10 At the request of: CHRISTINE SYKES Procedure: XR abdomen 1V EXAM: XR abdomen 1V HISTORY: Possible constipation COMPARISON: None. TECHNIQUE: One view of the abdomen was obtained. FINDINGS: A cardiac pacemaker lead is partially imaged. There is a nonspecific bowel gas pattern without evidence of bowel obstruction. A supine view is suboptimal for evaluation of intraperitoneal free air though none is seen. No acute osseous abnormality is seen. XR/XR abdomen 1V IMPRESSION: 1. Nonspecific bowel gas pattern without evidence of bowel obstruction. Electronically authenticated by: Nicole MCKINLEY Date: 03/11/2024 04:10 Dictated By: Harris Mckinley M.D. Signed By: 03/11/24412 DD/ 9 TD/TT: Contact Centre Supervisor: [place] [address] XRay Report Signed Patient: KULDIP ARCINIEGA MR#: [id number] : 1945 Acct:[id number] Age/Sex: 78 / M ADM Date: 03/11/24 Loc: ER Attending Dr: Ordering Physician: Christine Sykes M.D. Date of Service: 03/11/24 Procedure(s): XR abd omen 1V Accession Number(s): [id number] cc: Jayy Dutta M.D. ; Christine Sykes M.D. The [place] [id number] Patient Name: LEIGHTON ARCINIEGA MRN: [facility]:[id number] date: 1945 Sex: M Assigned Patient Location: ER Current Patient Loca tion: ED.MAIN Accession/Order Numb er: [id number] Exam Date: 03:00 Report Date: 03/11/2024 04:10 At the request of: CHRISTINE SYKES Procedure: XR abdomen 1V EXAM: XR abdomen 1V HISTORY: Possible constipation COMPARISON: None. TECHNIQUE: One view of the abdomen was obtained. FINDINGS: A cardiac pacemaker lead is partially imaged. There is a nonspecific bowel gas pattern wi thout evidence of bowel obstruction. A supine view is suboptimal for evalu ation of intraperitoneal free air though none is seen. No acute osseous abnorm ality is seen. X R/XR abdomen 1V IMPRESSION: 1. Nonspecific bowel gas pattern without evidence of bowel obstruction. Electronically authenticated by: Nicole MCKINLEY Date: 03/11/2024 04:10 Dictated By: Harris Mckinley M.D. Signed By: 03/11/24 0413 DD/ 0410 TD/TT: Contact Centre Supervisor: CBC AUTO DIFF Reviewed date:03/12/2024 02:11:31 PM Interpretation: Performing Lab: Notes/Report: [facility] , White Blood Count 11.3 4.0-11.0 10 3/uL Red Blood Count 3.69 4.70-6.10 10 6/uL Hemoglobin 11.8 14.0-18.0 g/dL Hematocrit 36.2 42.0-54.0 % Mean Corpuscular Volume 98.1 80.0-94.0 fL Mean Corpuscular Hemoglobin 32.0 25.9-34.0 pg Mean Corpuscular HGB Conc 32.6 29.9-35.2 g/dL Red Cell Distribution Width 13.7 11.0-15.0 % Platelet Count 211 150-450 10 3/uL Mean Platelet Volume 8.9 9.5-13.5 fL Neutrophils Percent Auto 66.4 43.0-75.0 % Lymphocytes Percent Auto 19.1 20.5-60.0 % Monocytes Percent Auto 9.1 1.7-12.0 % Eosinophils Percent Auto 4.5 0.9-7.0 % Basophils Percent Auto 0.6 0.2-2.0 % Immature Granulocytes Pct Auto 0.3 0.0-0.5 % Neutrophils Absolute Auto 7.5 1.4-6.5 10 3/uL Lymphocytes Absolute Auto 2.2 1.2-3.8 10 3/uL Monocytes Absolute Auto 1.0 0.3-0.8 10 3/uL Eosinophils Absolute Auto 0.5 0.0-0.7 10 3/uL Basophils Absolute Auto 0.1 0.0-0.1 10 3/uL Immature Granulocytes Abs Auto 0.03 0.00-0.03 10 3/uL Performing Lab: see note ML - [facility] LB CBC AUTO DIFF Reviewed date:03/12/2024 02:11:31 PM Interpretation: Performing Lab: Notes/Report: [facility] , White Blood Count 9.8 4.0-11.0 10 3/uL Red Blood Count 3.46 4.70-6.10 10 6/uL Hemoglobin 11.1 14.0-18.0 g/dL Hematocrit 34.1 42.0-54.0 % Mean Corpuscular Volume 98.6 80.0-94.0 fL Mean Corpuscular Hemoglobin 32.1 25.9-34.0 pg Mean Corpuscular HGB Conc 32.6 29.9-35.2 g/dL Red Cell Distribution Width 13.8 11.0-15.0 % Platelet Count 221 150-450 10 3/uL Mean Platelet Volume 9.1 9.5-13.5 fL Neutrophils Percent Auto 66.5 43.0-75.0 % Lymphocytes Percent Auto 18.1 20.5-60.0 % Monocytes Percent Auto 9.2 1.7-12.0 % Eosinophils Percent Auto 5.5 0.9-7.0 % Basophils Percent Auto 0.5 0.2-2.0 % Immature Granulocytes Pct Auto 0.2 0.0-0.5 % Neutrophils Absolute Auto 6.5 1.4-6.5 10 3/uL Lymphocytes Absolute Auto 1.8 1.2-3.8 10 3/uL Monocytes Absolute Auto 0.9 0.3-0.8 10 3/uL Eosinophils Absolute Auto 0.5 0.0-0.7 10 3/uL Basophils Absolute Auto 0.1 0.0-0.1 10 3/uL Immature Granulocytes Abs Auto 0.02 0.00-0.03 10 3/uL Performing Lab: see note - [facility] PROF CHEM 8 ([email or web address] METB) Reviewed date:03/12/2024 02:11:31 PM Interpretation: Performing Lab: Notes/Report: [facility] , Sodium 141 136-145 mmol/L Potassium 4.0 3.5-5.1 mmol/L Chloride 105 98-107 mmol/L Carbon Dioxide 27.1 21.0-32.0 mmol/L Anion Gap 12.9 Glucose 131 74-106 mg/dL Blood Urea Nitrogen 27.0 7.0-18.0 mg/dL Creatinine 1.81 0.70-1.30 mg/dL Estimated GFR ( Yaa 44 >=60 mL/min/1.73m 2 Estimated GFR (Non- Maryuri 36 >=60 mL/min/1.73m 2 BUN Creatinine Ratio 14.9 Calcium 9.0 8.5-10.1 mg/dL Performing Lab: see note - [facility] PROF CHEM 8 ([email or web address] METB) Reviewed date:03/29/2024 07:01:58 PM Interpretation: Performing Lab: Notes/Report: [facility] , Sodium 139 136-145 mmol/L Potassium 4.5 3.5-5.1 mmol/L Chloride 105 98-107 mmol/L Carbon Dioxide 26.7 21.0-32.0 mmol/L Anion Gap 11.8 Glucose 297 74-106 mg/dL Blood Urea Nitrogen 39.0 7.0-18.0 mg/dL Creatinine 2.41 0.70-1.30 mg/dL Estimated GFR ( Yaa 32 >=60 mL/min/1.73m 2 Estimated GFR (Non- Maryuri 26 >=60 mL/min/1.73m 2 BUN Creatinine Ratio 16.2 Calcium 9.2 8.5-10.1 mg/dL Performing Lab: see note ML - [facility] LB URINE MICROSCOPIC ONLY Reviewed date:04/06/2024 12:42:54 PM Interpretation: Performing Lab: Notes/Report: [facility] , WBC Urine 20-50 NONE SEEN #/HPF RBC Urine 2-5 0-2 #/HPF Bacteria Urine TRACE NONE SEEN #/HPF Mucus Urine NONE SEEN NONE SEEN Squamous Epithelial Cell Urine FEW NONE/RARE #/LPF Crystals Seen? None Seen None Seen #/HPF Cast Seen? NONE SEEN NONE SEEN #/LPF Urine Culture Indicated YES Performing Lab: see note ML - [facility] LB Blood Culture 1 Reviewed date:04/11/2024 03:29:52 PM Interpretation: Performing Lab: Notes/Report: [facility] , Blood Culture 1 See Below For Report Blood Culture 1 NG5D NO GROWTH AT 5 DAYS. Performing Lab: see note ML - [facility] LB Blood Culture 2 Reviewed date:04/11/2024 03:29:52 PM Interpretation: Performing Lab: Notes/Report: [facility] , Blood Culture 2 See Below For Report Blood Culture 2 NG5D NO GROWTH AT 5 DAYS. Performing Lab: see note ML - [facility] LB SARS-CoV-2 Ag* Reviewed date:04/06/2024 12:42:54 PM Interpretation: Performing Lab: Notes/Report: [facility] , SARS-CoV-2 Ag NEGATIVE NEGATIVE This test has not been FDA cleared or approved, but has been authorized by the FDA under an Emergency Use Authorization (EUA) for use by authorized laboratories certified under CLIA that meet the requirements to perform moderate or high complexity testing. This test has been authorized only for the detection of proteins from SARS-CoV-2, not for any other viruses or pathogens. The emergency use of this test is authorized for the duration of the declaration that circumstances exist justifying the authorization of emergency use of in vitro diagnostic tests for detection and/or diagnosis of Covid-19 under section 564(b)(1) of the Act, 21 U.S.C. 360bbb-3(b)(1), unless the declaration is terminated or authorization is revoked sooner. Performing Lab: see note ML - [facility] LB Urine Culture, Routine Reviewed date:04/09/2024 01:45:53 PM Interpretation: Performing Lab: Notes/Report: [facility] , Urine Culture, Routine See Below For Report Urine Culture, Routine Urine Culture, Routine No growth Urine Culture, Routine Urine Culture, Routine [facility]formed at[facility], Routine Urine Culture, Routine [address], [place] [id number] Urine Culture, Routine Urine Culture, Routine Senior Director Of [employer]: Ld Gonzalez PhD, Phone: [phone] Urine Culture, Routine Performing Lab: see note LC - [facility] LB SEE REPORT - Title Insurance Examiner Id information not found for OBX-specific writer producer legend Troponin I High Sensitivity Reviewed date:04/06/2024 12:42:54 PM Interpretation: Performing Lab: Notes/Report: [facility] , Troponin I High Sensitivity 37.2 4.0-76.1 pg/mL CUT-OFF POINTS HAVE BEEN ESTABLISHED BASED ON THE FOURTH UNIVERSAL DEFINITION OF MYOCARDIAL INFARCTION. THE UPPER REFERENCE LIMIT (URL) OF TROPONIN, DEFINED THE 99TH PERCENTILE OF cTnI DISTRIBUTION IN A REFERENCE POPULATION, HAS BEEN CONFIRMED THE DECISION THRESHOLD FOR AR DIAGNOSIS. 99TH PERCENTILE = 76.2 PG/ML NOTE: HIGH-SENSITIVITY TROPONIN ASSAY IS NOT INTENDED TO BE USED IN ISOLATION BUT SHOULD BE INTERPRETED IN CONJUNCTION WITH OTHER DIAGNOSTIC AND CLINICAL INFORMATION. Performing Lab: see note - [facility] LB BNP Reviewed date:04/07/2024 10:41:31 AM Interpretation: Performing Lab: Notes/Report: [facility] , NT Pro B Type Natriuretic Pept 60113.0 <=1800.0 pg/mL RESULTS CALLED TO Morteza Bazan RN @BY Azael Levin [place] at 0525 Performing Lab: see note ML - [facility] CBC AUTO DIFF Reviewed date:04/07/2024 10:41:31 AM Interpretation: Performing Lab: Notes/Report: [facility] , White Blood Count 16.6 4.0-11.0 10 3/uL Red Blood Count 3.17 4.70-6.10 10 6/uL Hemoglobin 10.1 14.0-18.0 g/dL Hematocrit 30.2 42.0-54.0 % Mean Corpuscular Volume 95.3 80.0-94.0 fL Mean Corpuscular Hemoglobin 31.9 25.9-34.0 pg Mean Corpuscular HGB Conc 33.4 29.9-35.2 g/dL Red Cell Distribution Width 13.4 11.0-15.0 % Platelet Count 231 150-450 10 3/uL Mean Platelet Volume 8.5 9.5-13.5 fL Neutrophils Percent Auto 90.5 43.0-75.0 % Lymphocytes Percent Auto 4.5 20.5-60.0 % Monocytes Percent Auto 4.4 1.7-12.0 % Eosinophils Percent Auto 0.0 0.9-7.0 % Basophils Percent Auto 0.1 0.2-2.0 % Immature Granulocytes Pct Auto 0.5 0.0-0.5 % Neutrophils Absolute Auto 15.1 1.4-6.5 10 3/uL Lymphocytes Absolute Auto 0.8 1.2-3.8 10 3/uL Monocytes Absolute Auto 0.7 0.3-0.8 10 3/uL Eosinophils Absolute Auto 0.0 0.0-0.7 10 3/uL Basophils Absolute Auto 0.0 0.0-0.1 10 3/uL Immature Granulocytes Abs Auto 0.08 0.00-0.03 10 3/uL Performing Lab: see note ML - [facility] LB PROF CHEM 8 (BAS METB) Reviewed date:04/07/2024 10:41:31 AM Interpretation: Performing Lab: Notes/Report: [facility] , Sodium 133 136-145 mmol/L Potassium 4.3 3.5-5.1 mmol/L Chloride 100 98-107 mmol/L Carbon Dioxide 24.5 21.0-32.0 mmol/L Anion Gap 12.8 Glucose 303 74-106 mg/dL Blood Urea Nitrogen 59.0 7.0-18.0 mg/dL Creatinine 2.32 0.70-1.30 mg/dL Estimated GFR ( Yaa 33 >=60 mL/min/1.73m 2 Estimated GFR (Non- Maryuri 27 >=60 mL/min/1.73m 2 BUN Creatinine Ratio 25.4 Calcium 9.0 8.5-10.1 mg/dL Performing Lab: see note ML - [facility] LB BNP Reviewed date:04/09/2024 01:45:53 PM Interpretation: Performing Lab: Notes/Report: [facility] , NT Pro B Type Natriuretic Pept 9962.0 <=1800.0 pg/mL RESULTS CALLED TO Morteza Guthrie RN @BY Azael Levin MT at 0629 Performing Lab: see note ML - [facility] LB CBC AUTO DIFF Reviewed date:04/09/2024 01:45:53 PM Interpretation: Performing Lab: Notes/Report: [facility] , White Blood Count 13.4 4.0-11.0 10 3/uL Red Blood Count 3.20 4.70-6.10 10 6/uL Hemoglobin 10.3 14.0-18.0 g/dL Hematocrit 30.8 42.0-54.0 % Mean Corpuscular Volume 96.3 80.0-94.0 fL Mean Corpuscular Hemoglobin 32.2 25.9-34.0 pg Mean Corpuscular HGB Conc 33.4 29.9-35.2 g/dL Red Cell Distribution Width 14.1 11.0-15.0 % Platelet Count 244 150-450 10 3/uL Mean Platelet Volume 8.5 9.5-13.5 fL Neutrophils Percent Auto 79.9 43.0-75.0 % Lymphocytes Percent Auto 10.7 20.5-60.0 % Monocytes Percent Auto 7.7 1.7-12.0 % Eosinophils Percent Auto 1.2 0.9-7.0 % Basophils Percent Auto 0.1 0.2-2.0 % Immature Granulocytes Pct Auto 0.4 0.0-0.5 % Neutrophils Absolute Auto 10.7 1.4-6.5 10 3/uL Lymphocytes Absolute Auto 1.4 1.2-3.8 10 3/uL Monocytes Absolute Auto 1.0 0.3-0.8 10 3/uL Eosinophils Absolute Auto 0.2 0.0-0.7 10 3/uL Basophils Absolute Auto 0.0 0.0-0.1 10 3/uL Immature Granulocytes Abs Auto 0.05 0.00-0.03 10 3/uL Performing Lab: see note ML - [facility] LB MAGNESIUM Reviewed date:04/09/2024 01:45:53 PM Interpretation: Performing Lab: Notes/Report: [facility] , Magnesium 1.7 1.8-2.4 mg/dL Performing Lab: see note ML - [facility] PROF CHEM 8 (BAS METB) Reviewed date:04/09/2024 01:45:53 PM Interpretation: Performing Lab: Notes/Report: [facility] , Sodium 135 136-145 mmol/L Potassium 4.3 3.5-5.1 mmol/L Chloride 103 98-107 mmol/L Carbon Dioxide 25.8 21.0-32.0 mmol/L Anion Gap 10.5 Glucose 204 74-106 mg/dL Blood Urea Nitrogen 67.0 7.0-18.0 mg/dL Creatinine 2.32 0.70-1.30 mg/dL Estimated GFR ( Yaa 33 >=60 mL/min/1.73m 2 Estimated GFR (Non- Maryuri 27 >=60 mL/min/1.73m 2 BUN Creatinine Ratio 28.9 Calcium 9.1 8.5-10.1 mg/dL Performing Lab: see note - [facility] CA echo doppler complete Reviewed date:04/09/2024 01:45:53 PM Interpretation: Performing Lab: Notes/Report: Source Facility: [place] [address] Cardiology Report Signed Patient: LEIGHTON ARCINIEGA MR#: [id number] : 1945 Acct:[id number] Age/Sex: 78 / M ADM Date: 04/05/24 Loc: MS 213-[address]: Jayy Dutta M.D. Ordering Physician: Jayy Dutta M.D. Date of Service: 04/06/24 Procedure(s): CA echo doppler complete Accession Number(s): [id number] cc: Jayy Dutta M.D. Patient Name: LEIGHTON ARCINIEGA MR#: [id number] : 1945 Exam Date: 04/06/2024 Ordering Doctor: DR Jayy Dutta . ECHOCARDIOGRAM REPORT PROCEDURE: CA ECHO DOPPLER COMPLETE INDICATIONS: chf, pacemaker, elevated BNP, hypertension, diabetes, h/o AR COMPARISON: None. DESCRIPTION: COMPLETE ECHOCARDIOGRAM Real-time transthoracic echocardiography with 2D, M-mode, spectral and color flow Doppler performed. QUALITY: Technical quality was good. LEFT VENTRICLE: Normal chamber size. Thickened septal wall. Abnormal septal motion likely due to pacing. Systolic function is at the lower limits of normal. LV EF: Lower limits of normal left ventricular ejection fraction, (50%). DIASTOLIC: Grade II diastolic dysfunction. ATRIAL SEPTUM: LEFT ATRIUM: Mild dilatation. RIGHT ATRIUM: Mild dilatation. RIGHT VENTRICLE: Normal chamber size. Normal systolic function. Pacer wire present. TRICUSPID VALVE: Normal mobility and thickness. No stenosis with trivial regurgitation. Doppler studies reveal moderately (45-60) elevated right sided pressures. RVSP 48 mmHg MITRAL VALVE: Normal mobility and thickness. No evidence of mitral valve stenosis. There is no mitral annular calcification. Mild mitral regurgitation. AORTIC VALVE: Normal trileaflet appearance. Mildly calcified aortic valve. Normal leaflet mobility. No evidence of aortic valve stenosis. No aortic regurgitation. AORTIC ROOT: Normal diameter and appearance. Ascending aorta is normal in size. PULMONIC VALVE: Normal thickness and mobility. No stenosis. No regurgitation. PERICARDIUM: No evidence of pericardial effusion. IVC: IVC is dilated (2.6 cm), does not fully collapse. PLEURA: CONCLUSION: 1. Left ventricular systolic function is at the lower limits of normal. LVEF is estimated at 50%. 2. Normal right ventricular size and systolic function. 3. Grade II diastolic dysfunction. 4. Mild mitral regurgitation. 5. Moderately elevated right sided pressures. Adult Echocardiography Procedure Report Left Ventricle LVEDD (3.7 - 5.6 cm): 5.66 cm LVESD (2.2 - 4.0 cm): 4.73 cm LVIVS thickness (0.6 - 1.2 cm): 1.38 cm LVPW thickness (0.5 - 1.0 cm): 1.00 cm e': 0.07 m/s E - e': 10.85 LVOT Max Gradient: 3.59 mm[Hg], 1.68 mm[Hg], 3.99 mm[Hg] LVOT Area (cm2): 0.86 m/s Peak Velocity (LVOT): 0.95 m/s, 0.65 m/s, 1.00 m/s LVOT Diameter 2.31 cm Left Atrium LA Volume Index (2D A2C): 38.10 ml/m2 Left Atrium Systolic Dimension: 4.22 cm Mitral Valve MV E to A Ratio: 0.78 Mitral Valve A-Wave Peak Velocity: 0.92 m/s Mitral Valve E-Wave Peak Velocity: 0.72 m/s Right Ventricle Aorta AO Root Diam: 3.39 cm Ascending Ao Diam: 3.23 cm Aortic Valve AoV Area (Peak Ajay): 2.44 cm2, 2.43 cm2, 1.59 cm2, 3.78 cm2 Peak Velocity(Antegrade Flow): 1.63 m/s, 1.71 m/s, 1.11 m/s Peak Gradient(Antegrade Flow): 10.67 mm[Hg], 11.67 mm[Hg], 4.90 mm[Hg] Tricuspid Valve Peak Velocity (Regurgitant Flow): 2.86 m/s, 2.86 m/s Pulmonic Valve Mean Gradient: 2.77 mm[Hg] Mean Velocity: 0.77 m/s Peak Velocity: 1.16 m/s, 1.07 m/s Peak Gradient: 4.61 mm[Hg], 5.37 mm[Hg] Right Atrium Right Atrium Systolic Pressure: 70.19 ml, 70.19 ml Dictated by: Johanna Degroot M.D. on 04/08/2024 at 13:30 Approved by: Johanna Degroot M.D. on 04/08/2024 at 13:37 Dictated By: JOHANNA DEGROOT Signed By: 04/08/248 DD/ 36 TD/TT: Contact Centre Supervisor: [place] [address] Cardiology Report Signed Patient: KULDIP ARCINIEGA MR#: [id number] : 1945 Acct:[id number] Age/Sex: 78 / M ADM Date: 04/05/24 Loc: MS 213-[address]: Nova Dutta M.D. Ordering Physician: Jayy Dutta M.D. Date of Service: 04/06/24 Procedure(s): CA ech o doppler complete Accession Number(s): [id number] cc: Jayy Dutta M.D. Patient Name: LEIGHTON ARCINIEGA MR#: [id number] : 1945 Exam Date: 04/06/2024 Ordering Doctor: DR Jayy Dutta . ECHOCARDIOGRAM REPORT PROCEDURE: CA ECHO DOPPLER COMPLETE INDICATIONS: chf, pacemaker, elevated BNP, hypertension, diabetes, h/o AR COMPARISON: None. DESCRIPTION: COMPLET E ECHOCARDIOGRAM Real-time transthoracic echocardiography wit h 2D, M-mode, spectral and color flow Doppler performed. QUALITY: Technical quality was good. LEFT VENTRICLE: Norm al chamber size. Thickened septal wall. Abnormal septal motion likely due to pacing. Systolic function is at the lower limits of normal. LV EF: Lower limits of normal left ventricular ejection fraction, (50%). DIASTOLIC: Grade II diastolic dysfunction. ATRIAL SEPTUM: LEFT ATRIUM: Mild dilatation. RIGHT ATRIUM: Mild dilatation. RIGHT VENTRICLE: Nor mal chamber size. Normal systolic function. Pacer wire present. TRICUSPID VALVE: Nor mal mobility and thickness. No stenosis with trivial regurgitation. Doppl er studies reveal moderately (45-60) elevated right sided pressures. RVSP 48 mmHg MITRAL VALVE: Normal mobility and thickness. No evidence of mitral valve stenosis. There is n o mitral annular calcification. Mild mitral regurgitation. AORTIC VALVE: Normal trileaflet appearance. Mildly calcified aortic valve. Normal leaflet mobil ity. No evidence of aortic valve stenosis. No aortic regurgitation. AORTIC ROOT: Normal diameter and appearance. Ascending aorta is normal in size. PULMONIC VALVE: Norm al thickness and mobility. No stenosis. No regurgitation. PERICARDIUM: No evid ence of pericardial effusion. IVC: IVC is dilated (2.6 cm), does not fully collapse. PLEURA: CONCLUSION: 1. Left ventricular systolic function is at the lower limits of normal. LVEF is estimated at 50%. 2. Normal right ventricular size and systolic function. 3. Grade II diastoli c dysfunction. 4. Mild mitral regurgitation. 5. Moderately elevat ed right sided pressures. Adult Echocardiograp hy Procedure Report Left Ventricle LVEDD (3.7 - 5.6 cm) : 5.66 cm LVESD (2.2 - 4.0 cm) : 4.73 cm LVIVS thickness (0.6 - 1.2 cm): 1.38 cm LVPW thickness (0.5 - 1.0 cm): 1.00 cm e': 0.07 m/s E - e': 10.85 LVOT Max Gradient: 3 .59 mm[Hg], 1.68 mm[Hg], 3.99 mm[Hg] LVOT Area (cm2): 0.86 m/s Peak Velocity (LVOT) : 0.95 m/s, 0.65 m/s, 1.00 m/s LVOT Diameter 2.31 cm Left Atrium LA Volume Index (2D A2C): 38.10 ml/m2 Left Atrium Systolic Dimension: 4.22 cm Mitral Valve MV E to A Ratio: 0.78 Mitral Valve A-Wave Peak Velocity: 0.92 m/s Mitral Valve E-Wave Peak Velocity: 0.72 m/s Right Ventricle Aorta AO Root Diam: 3.39 cm Ascending Ao Diam: 3 .23 cm Aortic Valve AoV Area (Peak Ajay): 2.44 cm2, 2.43 cm2, 1.59 cm2, 3.78 cm2 Peak Velocity(Antegr mery Flow): 1.63 m/s, 1.71 m/s, 1.11 m/s Peak Gradient(Antegr mery Flow): 10.67 mm[Hg], 11.67 mm[Hg], 4.90 mm[Hg] Tricuspid Valve Peak Velocity (Regurgitant Flow): 2.86 m/s, 2.86 m/s Pulmonic Valve Mean Gradient: 2.77 mm[Hg] Mean Velocity: 0.77 m/s Peak Velocity: 1.16 m/s, 1.07 m/s Peak Gradient: 4.61 mm[Hg], 5.37 mm[Hg] Right Atrium Right Atrium Systoli c Pressure: 70.19 ml, 70.19 ml Dictated by: Johanna Degroot M.D. on 04/08/2024 at 13:30 Approved by: Johanna Degroot M.D. on 04/08/2024 at 13:37 Dictated By: JOHANNA DEGROOT Signed By: 04/08/24 1338 DD/ 1337 TD/TT: Contact Centre Supervisor: BNP Reviewed date:04/16/2024 12:05:16 PM Interpretation: Performing Lab: Notes/Report: [facility] , NT Pro B Type Natriuretic Pept 07443.0 <=1800.0 pg/mL RESULTS CALLED TO JUANITA Rene D.O. @BY Azael Levin MT at 2042 Performing Lab: see note ML - [facility] LB CBC AUTO DIFF Reviewed date:04/16/2024 12:05:16 PM Interpretation: Performing Lab: Notes/Report: [facility] , White Blood Count 11.9 4.0-11.0 10 3/uL Red Blood Count 3.46 4.70-6.10 10 6/uL Hemoglobin 11.1 14.0-18.0 g/dL Hematocrit 33.2 42.0-54.0 % Mean Corpuscular Volume 96.0 80.0-94.0 fL Mean Corpuscular Hemoglobin 32.1 25.9-34.0 pg Mean Corpuscular HGB Conc 33.4 29.9-35.2 g/dL Red Cell Distribution Width 14.0 11.0-15.0 % Platelet Count 263 150-450 10 3/uL Mean Platelet Volume 8.3 9.5-13.5 fL Neutrophils Percent Auto 77.8 43.0-75.0 % Lymphocytes Percent Auto 11.4 20.5-60.0 % Monocytes Percent Auto 8.7 1.7-12.0 % Eosinophils Percent Auto 1.1 0.9-7.0 % Basophils Percent Auto 0.3 0.2-2.0 % Immature Granulocytes Pct Auto 0.7 0.0-0.5 % Neutrophils Absolute Auto 9.3 1.4-6.5 10 3/uL Lymphocytes Absolute Auto 1.4 1.2-3.8 10 3/uL Monocytes Absolute Auto 1.0 0.3-0.8 10 3/uL Eosinophils Absolute Auto 0.1 0.0-0.7 10 3/uL Basophils Absolute Auto 0.0 0.0-0.1 10 3/uL Immature Granulocytes Abs Auto 0.08 0.00-0.03 10 3/uL Performing Lab: see note ML - [facility] LB INFLUENZA A AND B AG Reviewed date:04/16/2024 12:05:16 PM Interpretation: Performing Lab: Notes/Report: [facility] , Influenza Virus A Antigen Negative Negative for Flu A protein antigen. Infection due to Flu A cannot be ruled out. Flu A antigen in the sample may be below the detection limit of the test. Influenza Virus B Antigen Negative Negative for Flu B protein antigen. Infection due to Flu B cannot be ruled out. Flu B antigen in the sample may be below the detection limit of the test. Performing Lab: see note ML - [facility] LB LACTATE or LACTIC ACID Reviewed date:04/16/2024 12:05:16 PM Interpretation: Performing Lab: Notes/Report: [facility] , Lactate/Lactic Acid 1.6 0.4-2.0 mmol/L Performing Lab: see note - [facility] LB PROF 14(COMP METB) Reviewed date:04/16/2024 12:05:16 PM Interpretation: Performing Lab: Notes/Report: [facility] , Sodium 135 136-145 mmol/L Potassium 4.1 3.5-5.1 mmol/L Chloride 101 98-107 mmol/L Carbon Dioxide 23.1 21.0-32.0 mmol/L Anion Gap 15.0 Glucose 153 74-106 mg/dL Blood Urea Nitrogen 36.0 7.0-18.0 mg/dL Creatinine 2.02 0.70-1.30 mg/dL Estimated GFR ( Yaa 39 >=60 mL/min/1.73m 2 Estimated GFR (Non- Maryuri 32 >=60 mL/min/1.73m 2 BUN Creatinine Ratio 17.8 Calcium 8.9 8.5-10.1 mg/dL Bilirubin Total 0.4 0.2-1.0 mg/dL Aspartate Amino Transferase 14 15-37 U/L Alanine Aminotransferase 18 16-63 U/L Alkaline Phosphatase 71 46-116 U/L Total Protein 6.6 6.4-8.2 g/dL Albumin Level 2.5 3.4-5.0 g/dL Globulin 4.1 Albumin Globulin Ratio 0.6 Performing Lab: see note ML - [facility] LB Blood Culture 1 Reviewed date:04/22/2024 04:13:05 PM Interpretation: Performing Lab: Notes/Report: [facility] , Blood Culture 1 See Below For Report Blood Culture 1 NG5D NO GROWTH AT 5 DAYS. Performing Lab: see note ML - [facility] LB Blood Culture 2 Reviewed date:04/22/2024 04:13:05 PM Interpretation: Performing Lab: Notes/Report: [facility] , Blood Culture 2 See Below For Report Blood Culture 2 NG5D NO GROWTH AT 5 DAYS. Performing Lab: see note ML - [facility] LB Troponin I High Sensitivity Reviewed date:04/16/2024 12:05:16 PM Interpretation: Performing Lab: Notes/Report: [facility] , Troponin I High Sensitivity 42.0 4.0-76.1 pg/mL CUT-OFF POINTS HAVE BEEN ESTABLISHED BASED ON THE FOURTH UNIVERSAL DEFINITION OF MYOCARDIAL INFARCTION. THE UPPER REFERENCE LIMIT (URL) OF TROPONIN, DEFINED THE 99TH PERCENTILE OF cTnI DISTRIBUTION IN A REFERENCE POPULATION, HAS BEEN CONFIRMED THE DECISION THRESHOLD FOR AR DIAGNOSIS. 99TH PERCENTILE = 76.2 PG/ML NOTE: HIGH-SENSITIVITY TROPONIN ASSAY IS NOT INTENDED TO BE USED IN ISOLATION BUT SHOULD BE INTERPRETED IN CONJUNCTION WITH OTHER DIAGNOSTIC AND CLINICAL INFORMATION. Performing Lab: see note - [facility] LB SARS-CoV-2 Ag* Reviewed date:04/16/2024 12:05:16 PM Interpretation: Performing Lab: Notes/Report: [facility] , SARS-CoV-2 Ag NEGATIVE NEGATIVE This test has not been FDA cleared or approved, but has been authorized by the FDA under an Emergency Use Authorization (EUA) for use by authorized laboratories certified under CLIA that meet the requirements to perform moderate or high complexity testing. This test has been authorized only for the detection of proteins from SARS-CoV-2, not for any other viruses or pathogens. The emergency use of this test is authorized for the duration of the declaration that circumstances exist justifying the authorization of emergency use of in vitro diagnostic tests for detection and/or diagnosis of Covid-19 under section 564(b)(1) of the Act, 21 U.S.C. 360bbb-3(b)(1), unless the declaration is terminated or authorization is revoked sooner. Performing Lab: see note ML - [facility] LB Result 1 Reviewed date:04/19/2024 08:45:34 PM Interpretation: Performing Lab: Notes/Report: [facility] , Result 1 See Below For Report Result 1 Many gram positive cocci. Performing Lab: see note LC - [facility] LB Result 2 Reviewed date:04/19/2024 08:45:34 PM Interpretation: Performing Lab: Notes/Report: [facility] , Result 2 See Below For Report Result 2 Few gram negative rods. Performing Lab: see note LC - [facility] LB Result 3 Reviewed date:04/19/2024 08:45:34 PM Interpretation: Performing Lab: Notes/Report: [facility] , Result 3 See Below For Report Result 3 INFORMATION SECURITY DIRECTOR Performing Lab: see note LC - [facility] LB Result 4 Reviewed date:04/19/2024 08:45:34 PM Interpretation: Performing Lab: Notes/Report: [facility] , Result 4 See Below For Report Result 4 INFORMATION SECURITY DIRECTOR Performing Lab: see note LC - [facility] LB Gram Stain Evaluation Reviewed date:04/19/2024 08:45:34 PM Interpretation: Performing Lab: Notes/Report: [facility] , Gram Stain Evaluation See Below For Report Gram Stain Evaluation This specimen is of good quality and is acceptable for routine Gram Stain Evaluation bacterial culture. Gram Stain Evaluation This specimen is of good quality and is acceptable for routine Performing Lab: see note LC - [facility] LB Lower Respiratory Culture Reviewed date:04/19/2024 08:45:34 PM Interpretation: Performing Lab: Notes/Report: [facility] , Lower Respiratory Culture See Below For Report Lower Respiratory Culture WILL FOLLOW Lower Respiratory Culture Routine respiratory cindy Lower Respiratory Culture WILL FOLLOW Lower Respiratory Culture Performed at: [facility] Lower Respiratory Culture WILL FOLLOW Lower Respiratory Culture [address] [place] [id number] Lower Respiratory Culture WILL FOLLOW Lower Respiratory Culture Senior Director Of [employer]: Francisco Gonzalez PhD, Phone: [phone] Lower Respiratory Culture WILL FOLLOW Performing Lab: see note LC - [facility] LB SEE REPORT - Title Insurance Examiner Id information not found for OBX-specific writer producer legend XR chest 2V Reviewed date:04/16/2024 12:05:16 PM Interpretation: Performing Lab: Notes/Report: Source Facility: [place] [address] XRay Report Signed Patient: LEIGHTON ARCINIEGA MR#: [id number] : 1945 Acct:[id number] Age/Sex: 78 / M ADM Date: 04/15/24 Loc: ER Attending Dr: Ordering Physician: Dacia Rene Date of Service: 04/15/24 Procedure(s): XR chest 2V Accession Number(s): [id number] cc: Jayy Dutta M.D.; Dacia Rene [place] [address] Patient Name: LEIGHTON ARCINIEGA MRN: [id number] date: 1945 Sex: M Assigned Patient Location: ER Current Patient Location: ER Accession/Order Number: [id number] Exam Date: 04/15/2024 20:15 Report Date: 04/15/2024 21:03 At the request of: DACIA MARKER Procedure: XR chest 2V EXAM: XR chest 2V TECHNIQUE: PA and lateral view of the chest HISTORY: sob, recent hx pneumonia COMPARISON: None. FINDINGS: Heart and mediastinum are unremarkable. There is interstitial infiltrate throughout the right lower lung field. Pulmonary venous congestion. Osseous structures are intact. Left-sided pacemaker. XR/XR chest 2V IMPRESSION: Interstitial infiltrate throughout the right lower lung field suggesting atypical pneumonia. Pulmonary venous congestion. Electronically authenticated by: BUDDY RAMOS Date: 04/15/2024 21:03 Dictated By: Buddy Ramos M.D. Signed By: 04/15/242105 DD/ 02 TD/TT: Contact Centre Supervisor: [address] [address] XRay Report Signed Patient: KULDIP ARCINIEGA MR#: [id number] : 1945 Acct:[id number] Age/Sex: 78 / M ADM Date: 04/15/24 Loc: ER Attending Dr: Ordering Physician: Dacia Rene Date of Service: 04/15/24 Procedure(s): XR chest 2V Accession Number(s): [id number] cc: Jayy Dutta M.D. ; Dacia Marker [address] [address] Patient Name: LEIGHTON ARCINIEGA MRN: [id number] date: 1945 Sex: M Assigned Patient Location: ER Current Patient Loca tion: ER Accession/Order Numb er: [id number] Exam Date: 04/15/2024 20:15 Report Date: 04/15/2024 21:03 At the request of: DACIA MARKER Procedure: XR chest 2V EXAM: XR chest 2V TECHNIQUE: PA and la teral view of the chest HISTORY: sob, recent hx pneumonia COMPARISON: None. FINDINGS: Heart and mediastinu m are unremarkable. There is interstitial infiltrate throughout the right lower lung field. Pulmonary venous congestion. Osseous structures are intac t. Left-sided pacemaker. _ X R/XR chest 2V IMPRESSION: Interstitial infiltr ate throughout the right lower lung field suggesting atypical pneumonia. Pulmonary venous congestion. Electronically authenticated by: BUDDY RAMOS Date: 04/15/2024 21:03 Dictated By: Asif Ramos M.D. Signed By: 04/15/242105 DD/ 02 TD/TT: Contact Centre Supervisor: Troponin I High Sensitivity Reviewed date:04/17/2024 08:10:35 PM Interpretation: Performing Lab: Notes/Report: [facility] , Troponin I High Sensitivity 36.0 4.0-76.1 pg/mL CUT-OFF POINTS HAVE BEEN ESTABLISHED BASED ON THE FOURTH UNIVERSAL DEFINITION OF MYOCARDIAL INFARCTION. THE UPPER REFERENCE LIMIT (URL) OF TROPONIN, DEFINED THE 99TH PERCENTILE OF cTnI DISTRIBUTION IN A REFERENCE POPULATION, HAS BEEN CONFIRMED THE DECISION THRESHOLD FOR AR DIAGNOSIS. 99TH PERCENTILE = 76.2 PG/ML NOTE: HIGH-SENSITIVITY TROPONIN ASSAY IS NOT INTENDED TO BE USED IN ISOLATION BUT SHOULD BE INTERPRETED IN CONJUNCTION WITH OTHER DIAGNOSTIC AND CLINICAL INFORMATION. Performing Lab: see note ML - [facility] Troponin I High Sensitivity Reviewed date:04/17/2024 08:10:35 PM Interpretation: Performing Lab: Notes/Report: [facility] , Troponin I High Sensitivity 30.5 4.0-76.1 pg/mL CUT-OFF POINTS HAVE BEEN ESTABLISHED BASED ON THE FOURTH UNIVERSAL DEFINITION OF MYOCARDIAL INFARCTION. THE UPPER REFERENCE LIMIT (URL) OF TROPONIN, DEFINED THE 99TH PERCENTILE OF cTnI DISTRIBUTION IN A REFERENCE POPULATION, HAS BEEN CONFIRMED THE DECISION THRESHOLD FOR AR DIAGNOSIS. 99TH PERCENTILE = 76.2 PG/ML NOTE: HIGH-SENSITIVITY TROPONIN ASSAY IS NOT INTENDED TO BE USED IN ISOLATION BUT SHOULD BE INTERPRETED IN CONJUNCTION WITH OTHER DIAGNOSTIC AND CLINICAL INFORMATION. Performing Lab: see note ML - [facility] LB BNP Reviewed date:04/17/2024 08:10:35 PM Interpretation: Performing Lab: Notes/Report: [facility] , NT Pro B Type Natriuretic Pept 56794.0 <=1800.0 pg/mL RESULTS CALLED TO JESSE CUNNINGHAM RN @BY Oriana Vergara at 0643 Performing Lab: see note - [facility] LB CBC AUTO DIFF Reviewed date:04/19/2024 08:45:34 PM Interpretation: Performing Lab: Notes/Report: [facility] , White Blood Count 17.2 4.0-11.0 10 3/uL Red Blood Count 3.22 4.70-6.10 10 6/uL Hemoglobin 10.1 14.0-18.0 g/dL Hematocrit 30.0 42.0-54.0 % Mean Corpuscular Volume 93.2 80.0-94.0 fL Mean Corpuscular Hemoglobin 31.4 25.9-34.0 pg Mean Corpuscular HGB Conc 33.7 29.9-35.2 g/dL Red Cell Distribution Width 13.5 11.0-15.0 % Platelet Count 285 150-450 10 3/uL Mean Platelet Volume 8.3 9.5-13.5 fL Neutrophils Percent Auto 94.6 43.0-75.0 % Lymphocytes Percent Auto 2.4 20.5-60.0 % Monocytes Percent Auto 2.1 1.7-12.0 % Eosinophils Percent Auto 0.0 0.9-7.0 % Basophils Percent Auto 0.1 0.2-2.0 % Immature Granulocytes Pct Auto 0.8 0.0-0.5 % Neutrophils Absolute Auto 16.2 1.4-6.5 10 3/uL Lymphocytes Absolute Auto 0.4 1.2-3.8 10 3/uL Monocytes Absolute Auto 0.4 0.3-0.8 10 3/uL Eosinophils Absolute Auto 0.0 0.0-0.7 10 3/uL Basophils Absolute Auto 0.0 0.0-0.1 10 3/uL Immature Granulocytes Abs Auto 0.14 0.00-0.03 10 3/uL Performing Lab: see note - [facility] LB PROF 14(COMP METB) Reviewed date:04/20/2024 08:00:07 PM Interpretation: Performing Lab: Notes/Report: [facility] , Sodium 130 136-145 mmol/L Potassium 4.3 3.5-5.1 mmol/L Chloride 98 98-107 mmol/L Carbon Dioxide 24.4 21.0-32.0 mmol/L Anion Gap 11.9 Glucose 164 74-106 mg/dL Blood Urea Nitrogen 96.0 7.0-18.0 mg/dL RESULT S CALLED TO RIGO GUAJARDO RN Creatinine 2.80 0.70-1.30 mg/dL Estimated GFR ( Yaa 27 >=60 mL/min/1.73m 2 Estimated GFR (Non- Maryuri 22 >=60 mL/min/1.73m 2 BUN Creatinine Ratio 34.3 Calcium 8.8 8.5-10.1 mg/dL Bilirubin Total 0.4 0.2-1.0 mg/dL Aspartate Amino Transferase 17 15-37 U/L Alanine Aminotransferase 19 16-63 U/L Alkaline Phosphatase 48 46-116 U/L Total Protein 5.6 6.4-8.2 g/dL Albumin Level 2.3 3.4-5.0 g/dL Globulin 3.3 Albumin Globulin Ratio 0.7 Performing Lab: see note ML - [facility] LB CBC AUTO DIFF Reviewed date:04/22/2024 04:13:05 PM Interpretation: Performing Lab: Notes/Report: [facility] , White Blood Count 12.5 4.0-11.0 10 3/uL Red Blood Count 2.88 4.70-6.10 10 6/uL Hemoglobin 9.1 14.0-18.0 g/dL Hematocrit 26.7 42.0-54.0 % Mean Corpuscular Volume 92.7 80.0-94.0 fL Mean Corpuscular Hemoglobin 31.6 25.9-34.0 pg Mean Corpuscular HGB Conc 34.1 29.9-35.2 g/dL Red Cell Distribution Width 13.7 11.0-15.0 % Platelet Count 278 150-450 10 3/uL Mean Platelet Volume 8.2 9.5-13.5 fL Neutrophils Percent Auto 85.7 43.0-75.0 % Lymphocytes Percent Auto 5.5 20.5-60.0 % Monocytes Percent Auto 7.3 1.7-12.0 % Eosinophils Percent Auto 0.0 0.9-7.0 % Basophils Percent Auto 0.1 0.2-2.0 % Immature Granulocytes Pct Auto 1.4 0.0-0.5 % Neutrophils Absolute Auto 10.8 1.4-6.5 10 3/uL Lymphocytes Absolute Auto 0.7 1.2-3.8 10 3/uL Monocytes Absolute Auto 0.9 0.3-0.8 10 3/uL Eosinophils Absolute Auto 0.0 0.0-0.7 10 3/uL Basophils Absolute Auto 0.0 0.0-0.1 10 3/uL Immature Granulocytes Abs Auto 0.17 0.00-0.03 10 3/uL Performing Lab: see note - [facility] LB PROF 14(COMP METB) Reviewed date:04/22/2024 04:13:05 PM Interpretation: Performing Lab: Notes/Report: [facility] , Sodium 133 136-145 mmol/L Potassium 4.4 3.5-5.1 mmol/L Chloride 99 98-107 mmol/L Carbon Dioxide 24.6 21.0-32.0 mmol/L Anion Gap 13.8 Glucose 81 74-106 mg/dL Blood Urea Nitrogen 105.0 7.0-18.0 mg/dL RESULTS CALLED TO Morteza Guthrie RN @BY Azael Levin MT at 0555 Creatinine 2.98 0.70-1.30 mg/dL Estimated GFR ( Yaa 25 >=60 mL/min/1.73m 2 Estimated GFR (Non- Maryuri 20 >=60 mL/min/1.73m 2 BUN Creatinine Ratio 35.2 Calcium 9.1 8.5-10.1 mg/dL Bilirubin Total 0.3 0.2-1.0 mg/dL Aspartate Amino Transferase 13 15-37 U/L Alanine Aminotransferase 20 16-63 U/L Alkaline Phosphatase 47 46-116 U/L Total Protein 5.5 6.4-8.2 g/dL Albumin Level 2.3 3.4-5.0 g/dL Globulin 3.2 Albumin Globulin Ratio 0.7 Performing Lab: see note - [facility] LB XR chest 2V Reviewed date:04/22/2024 04:13:05 PM Interpretation: Performing Lab: Notes/Report: Source Facility: [place] [address] [place] [address] XRay Report Signed Patient: LEIGHTON ARCINIEGA MR#: [id number] : 1945 Acct:[id number] Age/Sex: 78 / M ADM Date: 04/15/24 Loc: [place] 203-[address]: Jayy Dutta M.D. Ordering Physician: Jayy Dutta M.D. Date of Service: 04/21/24 Procedure(s): XR chest 2V Accession Number(s): [id number] cc: Jayy Dutta M.D. [place] [address] Patient Name: LEIGHTON ARCINIEGA MRN: [id number] date: 1945 Sex: M Assigned Patient Location: [place] Current Patient Location: [place] Accession/Order Number: [id number] Exam Date: 04/21/2024 07:55 Report Date: 04/21/2024 08:14 At the request of: JAYY DUTTA Procedure: XR chest 2V EXAMINATION: XR chest 2V HISTORY: folow up pna COMPARISON: No relevant comparison available. TECHNIQUE: pa/lat FINDINGS: LUNGS: Moderate bilateral infiltrates, right greater than left, slightly improved VASCULATURE: No increased pulmonary vasculature. PLEURA: No pneumothorax, effusion, or pleural thickening. CARDIAC: No cardiomegaly or cardiac silhouette abnormality. MEDIASTINUM: No visible mass or adenopathy. left pacemaker BONES: No fracture or visible bone lesion. OTHER: Negative. XR/XR chest 2V IMPRESSION: Improved parenchymal infiltrates Electronically authenticated by: ANDREA FAULKNER Date: 04/21/2024 08:14 Dictated By: Andrea Faulkner M.D. Signed By: 04/21/24815 DD/ 3 TD/TT: Contact Centre Supervisor: [place] [address] XRay Report Signed Patient: KULDIP ARCINIEGA MR#: [id number] : 1945 Acct:[id number] Age/Sex: 78 / M ADM Date: 04/15/24 Loc: [place] 203-[address]: Nova Dutta M.D. Ordering Physician: Jayy Dutta M.D. Date of Service: 04/21/24 Procedure(s): XR chest 2V Accession Number(s): [id number] cc: Jayy Dutta M.D. [place] [id number] Patient Name: LEIGHTON ARCINIEGA MRN: [id number] date: 1945 Sex: M Assigned Patient Location: [place] Current Patient Loca tion: [place] Accession/Order Numb er: [id number] Exam Date: 04/21/2024 07:55 Report Date: 04/21/2024 08:14 At the request of: JAYY DUTTA Procedure: XR chest 2V EXAMINATION: XR chest 2V HISTORY: folow up pna COMPARISON: No relev ant comparison available. TECHNIQUE: pa/lat FINDINGS: LUNGS: Moderate bila teral infiltrates, right greater than left, slightly improved VASCULATURE: No incr eased pulmonary vasculature. PLEURA: No pneumotho rax, effusion, or pleural thickening. CARDIAC: No cardiome robi or cardiac silhouette abnormality. MEDIASTINUM: No visi ble mass or adenopathy. left pacemaker BONES: No fracture o r visible bone lesion. OTHER: Negative. X R/XR chest 2V IMPRESSION: Improved parenchymal infiltrates Electronically authenticated by: ANDREA FAULKNER Date: 04/21/2024 08:14 Dictated By: James Faulkner M.D. Signed By: 04/21/24815 DD/ 3 TD/TT: Contact Centre Supervisor: BNP Reviewed date:05/03/2024 09:38:51 PM Interpretation: Performing Lab: Notes/Report: [facility] , NT Pro B Type Natriuretic Pept >11672.0 <=1800.0 pg/mL RESULTS CALLED TO CHRISTINE SYKES DR @BY Oriana Vergara at 7291 Performing Lab: see note ML - [facility] LB CBC AUTO DIFF Reviewed date:05/03/2024 09:38:51 PM Interpretation: Performing Lab: Notes/Report: [facility] , White Blood Count 11.8 4.0-11.0 10 3/uL Red Blood Count 3.12 4.70-6.10 10 6/uL Hemoglobin 10.2 14.0-18.0 g/dL Hematocrit 30.1 42.0-54.0 % Mean Corpuscular Volume 96.5 80.0-94.0 fL Mean Corpuscular Hemoglobin 32.7 25.9-34.0 pg Mean Corpuscular HGB Conc 33.9 29.9-35.2 g/dL Red Cell Distribution Width 16.2 11.0-15.0 % Platelet Count 226 150-450 10 3/uL Mean Platelet Volume 9.0 9.5-13.5 fL Performing Lab: see note ML - [facility] LB LACTATE or LACTIC ACID Reviewed date:05/03/2024 09:38:51 PM Interpretation: Performing Lab: Notes/Report: [facility] , Lactate/Lactic Acid 1.1 0.4-2.0 mmol/L Performing Lab: see note ML - [facility] LB PROF CHEM 8 (BAS METB) Reviewed date:05/03/2024 09:38:51 PM Interpretation: Performing Lab: Notes/Report: [facility] , Sodium 133 136-145 mmol/L Potassium 4.9 3.5-5.1 mmol/L Chloride 100 98-107 mmol/L Carbon Dioxide 25.2 21.0-32.0 mmol/L Anion Gap 12.7 Glucose 137 74-106 mg/dL Blood Urea Nitrogen 38.0 7.0-18.0 mg/dL Creatinine 1.76 0.70-1.30 mg/dL Estimated GFR ( Yaa 46 >=60 mL/min/1.73m 2 Estimated GFR (Non- Maryuri 38 >=60 mL/min/1.73m 2 BUN Creatinine Ratio 21.6 Calcium 8.4 8.5-10.1 mg/dL Performing Lab: see note ML - [facility] LB Manual Differential Reviewed date:05/03/2024 09:38:51 PM Interpretation: Performing Lab: Notes/Report: [facility] , Segmented Neutrophils % Manual 87.0 43.0-75.0 Lymphocytes Percent Manual 6.0 20.5-60.0 % Monocytes Percent Manual 6.0 1.7-12.0 % Eosinophils Percent Manual 0.0 0.9-7.0 % Basophils Percent Manual 0.0 0.2-2.0 % Atypical Lymphocytes % Manual 1.0 Segmented Neut Absolute Manual 10.26 1.4-6.5 10 3/uL Lymphocytes Absolute Manual 0.70 1.20-3.80 10 3/uL Monocytes Absolute Manual 0.70 0.30-0.80 10 3/uL Eosinophils Absolute Manual 0.00 0.00-0.70 10 3/uL Basophils Abs Manual 0.00 0.00-0.10 1 0 3/uL Atypical Lymphocytes Abs Man 0.11 Performing Lab: see note ML - [facility] LB Troponin I High Sensitivity Reviewed date:05/03/2024 09:38:51 PM Interpretation: Performing Lab: Notes/Report: [facility] , Troponin I High Sensitivity 39.7 4.0-76.1 pg/mL CUT-OFF POINTS HAVE BEEN ESTABLISHED BASED ON THE FOURTH UNIVERSAL DEFINITION OF MYOCARDIAL INFARCTION. THE UPPER REFERENCE LIMIT (URL) OF TROPONIN, DEFINED THE 99TH PERCENTILE OF cTnI DISTRIBUTION IN A REFERENCE POPULATION, HAS BEEN CONFIRMED THE DECISION THRESHOLD FOR AR DIAGNOSIS. 99TH PERCENTILE = 76.2 PG/ML NOTE: HIGH-SENSITIVITY TROPONIN ASSAY IS NOT INTENDED TO BE USED IN ISOLATION BUT SHOULD BE INTERPRETED IN CONJUNCTION WITH OTHER DIAGNOSTIC AND CLINICAL INFORMATION. Performing Lab: see note ML - [facility] LB SARS-CoV-2 Ag* Reviewed date:05/03/2024 09:38:51 PM Interpretation: Performing Lab: Notes/Report: [facility] , SARS-CoV-2 Ag NEGATIVE NEGATIVE This test has not been FDA cleared or approved, but has been authorized by the FDA under an Emergency Use Authorization (EUA) for use by authorized laboratories certified under CLIA that meet the requirements to perform moderate or high complexity testing. This test has been authorized only for the detection of proteins from SARS-CoV-2, not for any other viruses or pathogens. The emergency use of this test is authorized for the duration of the declaration that circumstances exist justifying the authorization of emergency use of in vitro diagnostic tests for detection and/or diagnosis of Covid-19 under section 564(b)(1) of the Act, 21 U.S.C. 360bbb-3(b)(1), unless the declaration is terminated or authorization is revoked sooner. Performing Lab: see note ML - [facility] LB ECG 12 lead Reviewed date:05/05/2024 06:51:06 AM Interpretation: Performing Lab: Notes/Report: Source Facility: [facility] [place] [address] [place] [address] Electrocardiograph Report Signed Patient: LEIGHTON ARCINIEGA MR#: [id number] : 1945 Acct:[id number] Age/Sex: 78 / M ADM Date: 05/02/24 Loc: [place] 219-[address]: Jayy Dutta M.D. Ordering Physician: Christine Sykes M.D. 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 Signed By: 05/05/24 0524 DD/ 2248 TD/TT: Contact Centre Supervisor: [place] [address] Electrocardiograph Report Signed Patient: KULDIP ARCINIEGA MR#: [id number] : 1945 Acct:[id number] Age/Sex: 78 / M ADM Date: 05/02/24 Loc: MS 219-[address]: Nova Dutta M.D. Ordering Physician: Christine Sykes M.D. Date of Service: 05/02/24 Procedure(s): ECG 12 lead Accession Number(s): [id number] cc: [facility] Test Date: 2024-05-02 Pat Name: LEIGHTON EDW ARDS Department: 59 Room: - Gender: Male Plastic Design Applier: : 1945 Requ ested By: JAYY DUTTA Order Number: [id number] Reading MD: JAYY DUTTA Measurements Intervals [place] Rate: 70 P: -13696 SC: -32909 QRS: -66 QRSD: 178 T: 102 QT: 490 QTc: 511 Interpretive Statements Electronic Ventricul ar pacemaker Electronically Katalina d On 05-05-2024 5:24:51 EST by JAYY DUTTA Dictated By: Grover Dutta M.D. Signed By: 05/05/24 0524 DD/ 2248 TD/TT: Contact Centre Supervisor: CBC AUTO DIFF Reviewed date:05/03/2024 09:38:51 PM Interpretation: Performing Lab: Notes/Report: [facility] , White Blood Count 11.4 4.0-11.0 10 3/uL Red Blood Count 3.00 4.70-6.10 10 6/uL Hemoglobin 9.5 14.0-18.0 g/dL Hematocrit 28.8 42.0-54.0 % Mean Corpuscular Volume 96.0 80.0-94.0 fL Mean Corpuscular Hemoglobin 31.7 25.9-34.0 pg Mean Corpuscular HGB Conc 33.0 29.9-35.2 g/dL Red Cell Distribution Width 16.1 11.0-15.0 % Platelet Count 209 150-450 10 3/uL Mean Platelet Volume 8.7 9.5-13.5 fL Neutrophils Percent Auto 78.8 43.0-75.0 % Lymphocytes Percent Auto 9.6 20.5-60.0 % Monocytes Percent Auto 8.9 1.7-12.0 % Eosinophils Percent Auto 2.0 0.9-7.0 % Basophils Percent Auto 0.1 0.2-2.0 % Immature Granulocytes Pct Auto 0.6 0.0-0.5 % Neutrophils Absolute Auto 9.0 1.4-6.5 10 3/uL Lymphocytes Absolute Auto 1.1 1.2-3.8 10 3/uL Monocytes Absolute Auto 1.0 0.3-0.8 10 3/uL Eosinophils Absolute Auto 0.2 0.0-0.7 10 3/uL Basophils Absolute Auto 0.0 0.0-0.1 10 3/uL Immature Granulocytes Abs Auto 0.07 0.00-0.03 10 3/uL Performing Lab: see note ML - [facility] LB INFLUENZA A AND B AG Reviewed date:05/03/2024 09:38:51 PM Interpretation: Performing Lab: Notes/Report: [facility] , Influenza Virus A Antigen Negative Negative for Flu A protein antigen. Infection due to Flu A cannot be ruled out. Flu A antigen in the sample may be below the detection limit of the test. Influenza Virus B Antigen Negative Negative for Flu B protein antigen. Infection due to Flu B cannot be ruled out. Flu B antigen in the sample may be below the detection limit of the test. Performing Lab: see note ML - [facility] LB White Blood Cells Reviewed date:05/07/2024 11:04:39 AM Interpretation: Performing Lab: Notes/Report: [facility] , White Blood Cells See Below For Report White Blood Cells White Blood Cells None seen White Blood Cells Performing Lab: see note LC - [facility] LB XR chest 1V Reviewed date:05/03/2024 09:38:51 PM Interpretation: Performing Lab: Notes/Report: Source Facility: [address] [place] [address] [place] [address] XRay Report Signed Patient: LEIGHTON ARCINIEGA MR#: [id number] : 1945 Acct:[id number] Age/Sex: 78 / M ADM Date: 05/02/24 Loc: ER Attending Dr: Ordering Physician: Christine Sykes M.D. Date of Service: 05/02/24 Procedure(s): XR chest 1V Accession Number(s): [id number] cc: Jayy Dutta M.D.; Christine Sykes M.D. [place] [address] Patient Name: LEIGHTON ARCINIEGA MRN: [id number] date: 1945 Sex: M Assigned Patient Location: ER Current Patient Location: ER Accession/Order Number: [id number] Exam Date: 05/02/2024 22:50 Report Date: 05/03/2024 00:00 At the request of: CHRISTINE SYKES Procedure: XR chest 1V EXAM: XR chest 1V HISTORY: SOB COMPARISON: Chest radiographs dated 04/27/2024. TECHNIQUE: One view of the chest. FINDINGS: A left chest cardiac pacemaker device is in place. The cardiac silhouette is normal in size. There are patchy opacities in both lungs. There is no significant pneumothorax. There are suspected small pleural effusions. No acute osseous abnormality is seen. XR/XR chest 1V IMPRESSION: 1. Findings concerning for multifocal pneumonia. 2. Small pleural effusions. Electronically authenticated by: Nicole MCKINLEY Date: 05/03/2024 00:00 Dictated By: Harris Mckinley M.D. Signed By: 05/03/24 0003 DD/ 0000 TD/TT: Contact Centre Supervisor: [place] [address] XRay Report Signed Patient: KULDIP ARCINIEGA MR#: [id number] : 1945 Acct:[id number] Age/Sex: 78 / M ADM Date: 05/02/24 Loc: ER Attending Dr: Ordering Physician: Christine Sykes M.D. Date of Service: 05/02/24 Procedure(s): XR chest 1V Accession Number(s): [id number] cc: Jayy Dutta M.D. ; Christine Sykes M.D. [place] [id number] Patient Name: LEIGHTON ARCINIEGA MRN: [id number] date: 1945 Sex: M Assigned Patient Location: ER Current Patient Loca tion: ER Accession/Order Numb er: [id number] Exam Date: 05/02/2024 22:50 Report Date: 05/03/2024 00:00 At the request of: CHRISTINE SYKES Procedure: XR chest 1V EXAM: XR chest 1V HISTORY: SOB COMPARISON: Chest radiographs dated 04/27/2024. TECHNIQUE: One view of the chest. FINDINGS: A left evelin st cardiac pacemaker device is in place. The cardiac silhouette is normal in size. There are patchy opacities in both lungs. There is no significant pneumothorax. There are suspected small pleural effusions. No acute osseous abnorm ality is seen. X R/XR chest 1V IMPRESSION: 1. Findings concerni ng for multifocal pneumonia. 2. Small pleural effusions. Electronically authenticated by: Nicole MCKINLEY Date: 05/03/2024 00:00 Dictated By: Harris Mckinley M.D. Signed By: 05/03/24 0003 DD/ 0000 TD/TT: Contact Centre Supervisor: BNP Reviewed date:05/04/2024 07:53:32 PM Interpretation: Performing Lab: Notes/Report: [facility] , NT Pro B Type Natriuretic Pept >84174.0 <=1800.0 pg/mL RESULTS CALLED TO DANIEL LESLIE RN ON [employer] BY Alberta Lester at 0706 Performing Lab: see note ML - [facility] LB CBC AUTO DIFF Reviewed date:05/04/2024 07:53:32 PM Interpretation: Performing Lab: Notes/Report: [facility] , White Blood Count 5.6 4.0-11.0 10 3/uL Red Blood Count 2.80 4.70-6.10 10 6/uL Hemoglobin 8.8 14.0-18.0 g/dL Hematocrit 26.8 42.0-54.0 % Mean Corpuscular Volume 95.7 80.0-94.0 fL Mean Corpuscular Hemoglobin 31.4 25.9-34.0 pg Mean Corpuscular HGB Conc 32.8 29.9-35.2 g/dL Red Cell Distribution Width 15.6 11.0-15.0 % Platelet Count 179 150-450 10 3/uL Mean Platelet Volume 8.9 9.5-13.5 fL Neutrophils Percent Auto 94.2 43.0-75.0 % Lymphocytes Percent Auto 4.1 20.5-60.0 % Monocytes Percent Auto 1.2 1.7-12.0 % Eosinophils Percent Auto 0.0 0.9-7.0 % Basophils Percent Auto 0.0 0.2-2.0 % Immature Granulocytes Pct Auto 0.5 0.0-0.5 % Neutrophils Absolute Auto 5.3 1.4-6.5 10 3/uL Lymphocytes Absolute Auto 0.2 1.2-3.8 10 3/uL Monocytes Absolute Auto 0.1 0.3-0.8 10 3/uL Eosinophils Absolute Auto 0.0 0.0-0.7 10 3/uL Basophils Absolute Auto 0.0 0.0-0.1 10 3/uL Immature Granulocytes Abs Auto 0.03 0.00-0.03 10 3/uL Performing Lab: see note ML - [facility] MAGNESIUM Reviewed date:05/04/2024 07:53:32 PM Interpretation: Performing Lab: Notes/Report: [facility] , Magnesium 1.9 1.8-2.4 mg/dL Performing Lab: see note - [facility] PROF 14(COMP METB) Reviewed date:05/04/2024 07:53:32 PM Interpretation: Performing Lab: Notes/Report: [facility] , Sodium 133 136-145 mmol/L Potassium 4.2 3.5-5.1 mmol/L Chloride 100 98-107 mmol/L Carbon Dioxide 24.5 21.0-32.0 mmol/L Anion Gap 12.7 Glucose 266 74-106 mg/dL Blood Urea Nitrogen 40.0 7.0-18.0 mg/dL Creatinine 2.06 0.70-1.30 mg/dL Estimated GFR ( Yaa 38 >=60 mL/min/1.73m 2 Estimated GFR (Non- Maryuri 31 >=60 mL/min/1.73m 2 BUN Creatinine Ratio 19.4 Calcium 8.2 8.5-10.1 mg/dL Bilirubin Total 0.5 0.2-1.0 mg/dL Aspartate Amino Transferase 17 15-37 U/L Alanine Aminotransferase 19 16-63 U/L Alkaline Phosphatase 51 46-116 U/L Total Protein 5.1 6.4-8.2 g/dL Albumin Level 2.3 3.4-5.0 g/dL Globulin 2.8 Albumin Globulin Ratio 0.8 Performing Lab: see note ML - [facility] LB UA RANDOM W or MICROSCOPIC Reviewed date:05/04/2024 07:53:32 PM Interpretation: Performing Lab: Notes/Report: [facility] , Color Urine LT. YELLOW YELLOW Clarity Urine CLEAR CLEAR Specific [place] Urine 1.020 1.005-1.025 pH Urine 5.5 5.0-9.0 Protein Urine 100 NEG/TRACE mg/dL Glucose Urine UA NEGATIVE NEGATIVE mg/dL Bilirubin Urine NEGATIVE NEGATIVE Ketones Urine NEGATIVE NEGATIVE mg/dL Blood Urine NEGATIVE NEGATIVE Nitrite Urine NEGATIVE NEGATIVE Urobilinogen Urine 0.2 0.2-1.0 EU/dL Leukocyte Esterase Urine NEGATIVE NEGATIVE WBC Urine 0-2 NONE SEEN #/HPF RBC Urine 0-2 0-2 #/HPF Bacteria Urine SMALL NONE SEEN #/HPF Mucus Urine NONE SEEN NONE SEEN Squamous Epithelial Cell Urine NONE SEEN NONE/RARE #/LPF Crystals Seen? None Seen None Seen #/HPF Cast Seen? NONE SEEN NONE SEEN #/LPF Urine Culture Indicated [facility] Performing Lab: see note ML - [facility] CBC AUTO DIFF Reviewed date:05/08/2024 09:24:24 AM Interpretation: Performing Lab: Notes/Report: [facility] , White Blood Count 12.9 4.0-11.0 10 3/uL Red Blood Count 2.95 4.70-6.10 10 6/uL Hemoglobin 9.6 14.0-18.0 g/dL Hematocrit 28.0 42.0-54.0 % Mean Corpuscular Volume 94.9 80.0-94.0 fL Mean Corpuscular Hemoglobin 32.5 25.9-34.0 pg Mean Corpuscular HGB Conc 34.3 29.9-35.2 g/dL Red Cell Distribution Width 15.9 11.0-15.0 % Platelet Count 139 150-450 10 3/uL Mean Platelet Volume 8.4 9.5-13.5 fL Performing Lab: see note ML - [facility] LB CRP Reviewed date:05/08/2024 09:24:24 AM Interpretation: Performing Lab: Notes/Report: [facility] , C Reactive Protein <0.50 <=0.50 mg/dL Performing Lab: see note - [facility] LB INFLUENZA A AND B AG Reviewed date:05/08/2024 09:24:24 AM Interpretation: Performing Lab: Notes/Report: [facility] , Influenza Virus A Antigen Negative Negative for Flu A protein antigen. Infection due to Flu A cannot be ruled out. Flu A antigen in the sample may be below the detection limit of the test. Influenza Virus B Antigen Negative Negative for Flu B protein antigen. Infection due to Flu B cannot be ruled out. Flu B antigen in the sample may be below the detection limit of the test. Performing Lab: see note ML - [facility] LB PROF 14(COMP METB) Reviewed date:05/08/2024 09:24:24 AM Interpretation: Performing Lab: Notes/Report: [facility] , Sodium 134 136-145 mmol/L Potassium 4.5 3.5-5.1 mmol/L Chloride 101 98-107 mmol/L Carbon Dioxide 24.1 21.0-32.0 mmol/L Anion Gap 13.4 Glucose 110 74-106 mg/dL Blood Urea Nitrogen 83.0 7.0-18.0 mg/dL RESULT S CALLED TO FREDI MCDONALD AT 1737 Creatinine 2.53 0.70-1.30 mg/dL Estimated GFR ( Yaa 30 >=60 mL/min/1.73m 2 Estimated GFR (Non- Maryuri 25 >=60 mL/min/1.73m 2 BUN Creatinine Ratio 32.8 Calcium 8.7 8.5-10.1 mg/dL Bilirubin Total 0.4 0.2-1.0 mg/dL Aspartate Amino Transferase 15 15-37 U/L Alanine Aminotransferase 29 16-63 U/L Alkaline Phosphatase 54 46-116 U/L Total Protein 5.6 6.4-8.2 g/dL Albumin Level 2.6 3.4-5.0 g/dL Globulin 3.0 Albumin Globulin Ratio 0.9 Performing Lab: see note ML - [facility] Prothrombin Time INR Reviewed date:05/08/2024 09:24:24 AM Interpretation: Performing Lab: Notes/Report: [facility] , Prothrombin Time 11.8 9.0-11.6 sec INR 1.13 DESIRED INR: 2.0-3.0 CONDITIONS NOT LISTED BELOW 2.5-3.5 FOR PROSTHETIC HEART VALVE REPLACEMENT 2.5-3.5 RECURRENT THROMBOSIS Performing Lab: see note ML - [facility] LB Manual Differential Reviewed date:05/08/2024 09:24:24 AM Interpretation: Performing Lab: Notes/Report: [facility] , Segmented Neutrophils % Manual 93.0 43.0-75.0 Lymphocytes Percent Manual 0.0 20.5-60.0 % Monocytes Percent Manual 7.0 1.7-12.0 % Eosinophils Percent Manual 0.0 0.9-7.0 % Basophils Percent Manual 0.0 0.2-2.0 % Segmented Neut Absolute Manual 11.99 1.4-6.5 10 3/uL Lymphocytes Absolute Manual 0.00 1.20-3.80 10 3/uL Monocytes Absolute Manual 0.90 0.30-0.80 10 3/uL Eosinophils Absolute Manual 0.00 0.00-0.70 10 3/uL Basophils Abs Manual 0.00 0.00-0.10 1 0 3/uL Anisocytosis 1+ Ovalocytes 1+ Performing Lab: see note ML - [facility] LB Troponin I High Sensitivity Reviewed date:05/08/2024 09:24:24 AM Interpretation: Performing Lab: Notes/Report: [facility] , Troponin I High Sensitivity 54.4 4.0-76.1 pg/mL CUT-OFF POINTS HAVE BEEN ESTABLISHED BASED ON THE FOURTH UNIVERSAL DEFINITION OF MYOCARDIAL INFARCTION. THE UPPER REFERENCE LIMIT (URL) OF TROPONIN, DEFINED THE 99TH PERCENTILE OF cTnI DISTRIBUTION IN A REFERENCE POPULATION, HAS BEEN CONFIRMED THE DECISION THRESHOLD FOR AR DIAGNOSIS. 99TH PERCENTILE = 76.2 PG/ML NOTE: HIGH-SENSITIVITY TROPONIN ASSAY IS NOT INTENDED TO BE USED IN ISOLATION BUT SHOULD BE INTERPRETED IN CONJUNCTION WITH OTHER DIAGNOSTIC AND CLINICAL INFORMATION. Performing Lab: see note - [facility] LB SARS-CoV-2 Ag* Reviewed date:05/08/2024 09:24:24 AM Interpretation: Performing Lab: Notes/Report: [facility] , SARS-CoV-2 Ag NEGATIVE NEGATIVE This test has not been FDA cleared or approved, but has been authorized by the FDA under an Emergency Use Authorization (EUA) for use by authorized laboratories certified under CLIA that meet the requirements to perform moderate or high complexity testing. This test has been authorized only for the detection of proteins from SARS-CoV-2, not for any other viruses or pathogens. The emergency use of this test is authorized for the duration of the declaration that circumstances exist justifying the authorization of emergency use of in vitro diagnostic tests for detection and/or diagnosis of Covid-19 under section 564(b)(1) of the Act, 21 U.S.C. 360bbb-3(b)(1), unless the declaration is terminated or authorization is revoked sooner. Performing Lab: see note ML - [facility] LB ECG 12 lead Reviewed date:05/10/2024 06:56:30 PM Interpretation: Performing Lab: Notes/Report: Source Facility: [address] [address] [place] [address] Electrocardiograph Report Signed Patient: LEIGHTON ARCINIEGA MR#: [id number] : 1945 Acct:[id number] Age/Sex: 78 / M ADM Date: 05/07/24 Loc: ICU 274-[address]: Jayy Dutta M.D. 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 Signed By: 05/10/24 0718 DD/ 1706 TD/TT: Contact Centre Supervisor: [place] [address] Electrocardiograph Report Signed Patient: KULDIP ARCINIEGA MR#: [id number] : 1945 Acct:[id number] Age/Sex: 78 / M ADM Date: 05/07/24 Loc: ICU 274-[address]: Nova Dutta M.D. 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 Signed By: 05/10/24717 DD/ 05 TD/TT: Contact Centre Supervisor: XR chest 1V Reviewed date:05/08/2024 09:24:25 AM Interpretation: Performing Lab: Notes/Report: Source Facility: [place] [address] XRay Report Signed Patient: LEIGHTON ARCINIEGA MR#: [id number] : 1945 Acct:[id number] Age/Sex: 78 / M ADM Date: 05/07/24 Loc: ER Attending Dr: Ordering Physician: Fredi Rader Date of Service: 05/07/24 Procedure(s): XR chest 1V Accession Number(s): [id number] cc: Jayy Dutta M.D.; Fredi Rader [place] [id number] Patient Name: LEIGHTON ARCINIEGA MRN: [id number] date: 1945 Sex: M Assigned Patient Location: ER Current Patient Location: ED.MAIN Accession/Order Number: [id number] Exam Date: 05/07/2024 16:58 Report Date: 05/07/2024 17:58 At the request of: FREDI RADER Procedure: XR chest 1V EXAM: XR chest 1V HISTORY: Shortness of breath COMPARISON: Chest imaging 05/02/2024 and earlier including chest x-ray and CT TECHNIQUE: AP upright chest x-ray. FINDINGS: Diffuse bilateral airspace density progressive since 05/02/2024 with increasing areas of dense consolidation. Asymmetric with findings most prominent on the right most consistent with bilateral pneumonia. Cannot exclude a component of superimposed edema from failure. Cardiac enlargement unchanged. Pacemaker leads again noted. Questionable small pleural effusions. No pneumothorax. XR/XR chest 1V IMPRESSION: Progressive bilateral airspace density most consistent with bilateral pneumonia most extensive on the right. Cannot exclude component of superimposed edema from heart failure. Electronically authenticated by: VARGHESE HELLER Date: 05/07/2024 17:58 Dictated By: Varghese Heller M.D. Signed By: 05/07/241799 DD/ 57 TD/TT: Contact Centre Supervisor: [place] [address] XRay Report Signed Patient: KULDIP ARCINIEGA MR#: [id number] : 1945 Acct:[id number] Age/Sex: 78 / M ADM Date: 05/07/24 Loc: ER Attending Dr: Ordering Physician: Fredi Rader Date of Service: 05/07/24 Procedure(s): XR chest 1V Accession Number(s): [id number] cc: Jayy Dutta M.D. ; Fredi Rader [place] [id number] Patient Name: LEIGHTON ARCINIEGA MRN: [id number] date: 1945 Sex: M Assigned Patient Location: ER Current Patient Loca tion: ED.MAIN Accession/Order Numb er: [id number] Exam Date: 05/07/2024 16:58 Report Date: 05/07/2024 17:58 At the request of: FREDI RADER Procedure: XR chest 1V EXAM: XR chest 1V HISTORY: Shortness o f breath COMPARISON: Chest im aging 05/02/2024 and earlier including chest x-ray and CT TECHNIQUE: AP uprigh t chest x-ray. FINDINGS: Diffuse bilateral airspace density progressive since 05/02/2024 with increasing areas of dense consolidation. Asymmetric with findings most prominent on the rig ht most consistent with bilateral pneumonia. Cannot exclude a component of superimposed edema from failure. Cardiac enlargement unchanged. Pacemaker leads again noted. Questionable small pleural effusions. N o pneumothorax. X R/XR chest 1V IMPRESSION: Progressive bilatera l airspace density most consistent with bilateral pneumonia most extensive on th e right. Cannot exclude component of superimposed edema from heart failure. Electronically authenticated by: VARGHESE HELLER Date: 05/07/2024 17:58 Dictated By: Varghese Heller M.D. Signed By: 05/07/241799 DD/ 57 TD/TT: Contact Centre Supervisor: LACTATE or LACTIC ACID Reviewed date:05/08/2024 09:24:24 AM Interpretation: Performing Lab: Notes/Report: [facility] , Lactate/Lactic Acid 1.2 0.4-2.0 mmol/L Performing Lab: see note ML - [facility] LB BNP Reviewed date:05/08/2024 09:24:24 AM Interpretation: Performing Lab: Notes/Report: [facility] , NT Pro B Type Natriuretic Pept >42568.0 <=1800.0 pg/mL RESULTS CALLED TO GAURAV SALAZAR RN @BY Oriana Vergara at 0535 Performing Lab: see note ML - [facility] LB CBC AUTO DIFF Reviewed date:05/08/2024 09:24:24 AM Interpretation: Performing Lab: Notes/Report: [facility] , White Blood Count 6.3 4.0-11.0 10 3/uL Red Blood Count 2.86 4.70-6.10 10 6/uL Hemoglobin 9.0 14.0-18.0 g/dL Hematocrit 27.2 42.0-54.0 % Mean Corpuscular Volume 95.1 80.0-94.0 fL Mean Corpuscular Hemoglobin 31.5 25.9-34.0 pg Mean Corpuscular HGB Conc 33.1 29.9-35.2 g/dL Red Cell Distribution Width 15.9 11.0-15.0 % Platelet Count 123 150-450 10 3/uL Mean Platelet Volume 9.3 9.5-13.5 fL Neutrophils Percent Auto 95.3 43.0-75.0 % Lymphocytes Percent Auto 2.5 20.5-60.0 % Monocytes Percent Auto 1.7 1.7-12.0 % Eosinophils Percent Auto 0.0 0.9-7.0 % Basophils Percent Auto 0.0 0.2-2.0 % Immature Granulocytes Pct Auto 0.5 0.0-0.5 % Neutrophils Absolute Auto 6.0 1.4-6.5 10 3/uL Lymphocytes Absolute Auto 0.2 1.2-3.8 10 3/uL Monocytes Absolute Auto 0.1 0.3-0.8 10 3/uL Eosinophils Absolute Auto 0.0 0.0-0.7 10 3/uL Basophils Absolute Auto 0.0 0.0-0.1 10 3/uL Immature Granulocytes Abs Auto 0.03 0.00-0.03 10 3/uL Performing Lab: see note ML - [facility] LB MAGNESIUM Reviewed date:05/08/2024 09:24:24 AM Interpretation: Performing Lab: Notes/Report: [facility] , Magnesium 2.1 1.8-2.4 mg/dL Performing Lab: see note ML - [facility] LB PROF 14(COMP METB) Reviewed date:05/08/2024 09:24:24 AM Interpretation: Performing Lab: Notes/Report: [facility] , Sodium 136 136-145 mmol/L Potassium 4.1 3.5-5.1 mmol/L Chloride 103 98-107 mmol/L Carbon Dioxide 23.5 21.0-32.0 mmol/L Anion Gap 13.6 Glucose 77 74-106 mg/dL Blood Urea Nitrogen 77.0 7.0-18.0 mg/dL RESULTS CALLED TO GAURAV SALAZAR RN @BY Oriana Vergara at 0535 Creatinine 2.42 0.70-1.30 mg/dL Estimated GFR ( Yaa 32 >=60 mL/min/1.73m 2 Estimated GFR (Non- Maryuri 26 >=60 mL/min/1.73m 2 BUN Creatinine Ratio 31.8 Calcium 8.7 8.5-10.1 mg/dL Bilirubin Total 0.5 0.2-1.0 mg/dL Aspartate Amino Transferase 12 15-37 U/L Alanine Aminotransferase 26 16-63 U/L Alkaline Phosphatase 50 46-116 U/L Total Protein 5.4 6.4-8.2 g/dL Albumin Level 2.5 3.4-5.0 g/dL Globulin 2.9 Albumin Globulin Ratio 0.9 Performing Lab: see note ML - [facility] LB CRP Reviewed date:05/08/2024 09:24:25 AM Interpretation: Performing Lab: Notes/Report: [facility] , C Reactive Protein <0.50 <=0.50 mg/dL Performing Lab: see note - [facility] LB CBC AUTO DIFF Reviewed date:05/09/2024 08:36:49 PM Interpretation: Performing Lab: Notes/Report: [facility] , White Blood Count 9.1 4.0-11.0 10 3/uL Red Blood Count 2.79 4.70-6.10 10 6/uL Hemoglobin 8.7 14.0-18.0 g/dL Hematocrit 26.6 42.0-54.0 % Mean Corpuscular Volume 95.3 80.0-94.0 fL Mean Corpuscular Hemoglobin 31.2 25.9-34.0 pg Mean Corpuscular HGB Conc 32.7 29.9-35.2 g/dL Red Cell Distribution Width 15.8 11.0-15.0 % Platelet Count 118 150-450 10 3/uL Mean Platelet Volume 9.2 9.5-13.5 fL Neutrophils Percent Auto 90.0 43.0-75.0 % Lymphocytes Percent Auto 4.4 20.5-60.0 % Monocytes Percent Auto 5.0 1.7-12.0 % Eosinophils Percent Auto 0.1 0.9-7.0 % Basophils Percent Auto 0.1 0.2-2.0 % Immature Granulocytes Pct Auto 0.4 0.0-0.5 % Neutrophils Absolute Auto 8.1 1.4-6.5 10 3/uL Lymphocytes Absolute Auto 0.4 1.2-3.8 10 3/uL Monocytes Absolute Auto 0.5 0.3-0.8 10 3/uL Eosinophils Absolute Auto 0.0 0.0-0.7 10 3/uL Basophils Absolute Auto 0.0 0.0-0.1 10 3/uL Immature Granulocytes Abs Auto 0.04 0.00-0.03 10 3/uL Performing Lab: see note ML - [facility] LB PROF CHEM 8 (BAS METB) Reviewed date:05/09/2024 08:36:49 PM Interpretation: Performing Lab: Notes/Report: [facility] , Sodium 136 136-145 mmol/L Potassium 4.3 3.5-5.1 mmol/L Chloride 103 98-107 mmol/L Carbon Dioxide 24.8 21.0-32.0 mmol/L Anion Gap 12.5 Glucose 275 74-106 mg/dL Blood Urea Nitrogen 85.0 7.0-18.0 mg/dL RESULTS CALLED TO DANK GUAJARDO RN @BY Oriana Vergara at 0549 Creatinine 2.45 0.70-1.30 mg/dL Estimated GFR ( Yaa 31 >=60 mL/min/1.73m 2 Estimated GFR (Non- Maryuri 26 >=60 mL/min/1.73m 2 BUN Creatinine Ratio 34.7 Calcium 8.8 8.5-10.1 mg/dL Performing Lab: see note - [facility] LB BLOOD GASES BTY Reviewed date:05/19/2024 01:06:39 PM Interpretation: Performing Lab: Notes/Report: [facility] , pH ABG 7.508 7.350-7.450 RESULTS CALLED TO ED Dacia Rene D.O. @BY Azael Levin [place] at 2248 ABG PCO2 31.8 35.0-45.0 mmHg PO2 ABG 55.8 80.0-100.0 mmHg RESULTS CALLED TO ER Dacia Rene D.O. @BY Azael Levin MT at 2248 HCO3 ABG 25.2 22.0-26.0 mmol/L Base Excess ABG 2.2 -2.0-2.0 mmol/L Oxygen Saturation ABG 92.3 Rustam Test POSITIVE POSITIVE O2 Mode NASAL CANNULA Liters per Minute 4 Puncture Site R.RADIAL Performing Lab: see note - [facility] LB Blood Culture 2 Reviewed date:05/14/2024 08:49:23 AM Interpretation: Performing Lab: Notes/Report: RIGHT AC [facility] , Blood Culture 2 See Below For Report Blood Culture 2 NG5D NO GROWTH AT 5 DAYS.^NO GROWTH AT 5 DAYS. Performing Lab: see note - [facility] LB CBC AUTO DIFF Reviewed date:05/19/2024 01:06:39 PM Interpretation: Performing Lab: Notes/Report: [facility] , White Blood Count 9.5 4.0-11.0 10 3/uL Red Blood Count 2.61 4.70-6.10 10 6/uL Hemoglobin 8.4 14.0-18.0 g/dL Hematocrit 25.1 42.0-54.0 % Mean Corpuscular Volume 96.2 80.0-94.0 fL Mean Corpuscular Hemoglobin 32.2 25.9-34.0 pg Mean Corpuscular HGB Conc 33.5 29.9-35.2 g/dL Red Cell Distribution Width 15.5 11.0-15.0 % Platelet Count 138 150-450 10 3/uL Mean Platelet Volume 9.7 9.5-13.5 fL Neutrophils Percent Auto 83.3 43.0-75.0 % Lymphocytes Percent Auto 8.5 20.5-60.0 % Monocytes Percent Auto 7.1 1.7-12.0 % Eosinophils Percent Auto 0.5 0.9-7.0 % Basophils Percent Auto 0.1 0.2-2.0 % Immature Granulocytes Pct Auto 0.5 0.0-0.5 % Neutrophils Absolute Auto 7.9 1.4-6.5 10 3/uL Lymphocytes Absolute Auto 0.8 1.2-3.8 10 3/uL Monocytes Absolute Auto 0.7 0.3-0.8 10 3/uL Eosinophils Absolute Auto 0.1 0.0-0.7 10 3/uL Basophils Absolute Auto 0.0 0.0-0.1 10 3/uL Immature Granulocytes Abs Auto 0.05 0.00-0.03 10 3/uL Performing Lab: see note ML - [facility] LB INFLUENZA A AND B AG Reviewed date:05/19/2024 01:06:39 PM Interpretation: Performing Lab: Notes/Report: [facility] , Influenza Virus A Antigen Negative Negative for Flu A protein antigen. Infection due to Flu A cannot be ruled out. Flu A antigen in the sample may be below the detection limit of the test. Influenza Virus B Antigen Negative Negative for Flu B protein antigen. Infection due to Flu B cannot be ruled out. Flu B antigen in the sample may be below the detection limit of the test. Performing Lab: see note ML - [facility] LB LACTATE or LACTIC ACID Reviewed date:05/19/2024 01:06:39 PM Interpretation: Performing Lab: Notes/Report: [facility] , Lactate/Lactic Acid 1.0 0.4-2.0 mmol/L Performing Lab: see note ML - [facility] LB PROF 14(COMP METB) Reviewed date:05/19/2024 01:06:39 PM Interpretation: Performing Lab: Notes/Report: [facility] , Sodium 133 136-145 mmol/L Potassium 3.9 3.5-5.1 mmol/L Chloride 98 98-107 mmol/L Carbon Dioxide 25.4 21.0-32.0 mmol/L Anion Gap 13.5 Glucose 237 74-106 mg/dL Blood Urea Nitrogen 39.0 7.0-18.0 mg/dL Creatinine 1.74 0.70-1.30 mg/dL Estimated GFR ( Yaa 46 >=60 mL/min/1.73m 2 Estimated GFR (Non- Maryuri 38 >=60 mL/min/1.73m 2 BUN Creatinine Ratio 22.4 Calcium 8.1 8.5-10.1 mg/dL Bilirubin Total 0.5 0.2-1.0 mg/dL Aspartate Amino Transferase 14 15-37 U/L Alanine Aminotransferase 21 16-63 U/L Alkaline Phosphatase 71 46-116 U/L Total Protein 5.2 6.4-8.2 g/dL Albumin Level 2.0 3.4-5.0 g/dL Globulin 3.2 Albumin Globulin Ratio 0.6 Performing Lab: see note ML - [facility] LB UA RANDOM W or MICROSCOPIC Reviewed date:05/19/2024 01:06:39 PM Interpretation: Performing Lab: Notes/Report: [facility] , Color Urine LT. YELLOW YELLOW Clarity Urine CLOUDY CLEAR Specific [place] Urine 1.010 1.005-1.025 pH Urine 5.5 5.0-9.0 Protein Urine 100 NEG/TRACE mg/dL Glucose Urine UA 100 NEGATIVE mg/dL Bilirubin Urine NEGATIVE NEGATIVE Ketones Urine NEGATIVE NEGATIVE mg/dL Blood Urine SMALL NEGATIVE Nitrite Urine NEGATIVE NEGATIVE Urobilinogen Urine 0.2 0.2-1.0 EU/dL Leukocyte Esterase Urine SMALL NEGATIVE WBC Urine >100 NONE SEEN #/HPF RBC Urine 2-5 0-2 #/HPF Bacteria Urine MODERATE NONE SEEN #/HPF Mucus Urine TRACE NONE SEEN Squamous Epithelial Cell Urine RARE NONE/RARE #/LPF Crystals Seen? None Seen None Seen #/HPF Cast Seen? SEEN NONE SEEN #/LPF Hyaline Casts Urine FEW Urine Culture Indicated [facility] [place] Performing Lab: see note ML - [facility] LB Blood Culture 1 Reviewed date:05/24/2024 09:11:59 PM Interpretation: Performing Lab: Notes/Report: [facility] , Blood Culture 1 See Below For Report Blood Culture 1 NG5D NO GROWTH AT 5 DAYS.^NO GROWTH AT 5 DAYS. Performing Lab: see note ML - [facility] LB Blood Culture 2 Reviewed date:05/24/2024 09:11:59 PM Interpretation: Performing Lab: Notes/Report: [facility] , Blood Culture 2 See Below For Report Blood Culture 2 NG5D NO GROWTH AT 5 DAYS.^NO GROWTH AT 5 DAYS. Performing Lab: see note ML - [facility] LB Troponin I High Sensitivity Reviewed date:05/19/2024 01:06:39 PM Interpretation: Performing Lab: Notes/Report: [facility] , Troponin I High Sensitivity 51.9 4.0-76.1 pg/mL CUT-OFF POINTS HAVE BEEN ESTABLISHED BASED ON THE FOURTH UNIVERSAL DEFINITION OF MYOCARDIAL INFARCTION. THE UPPER REFERENCE LIMIT (URL) OF TROPONIN, DEFINED THE 99TH PERCENTILE OF cTnI DISTRIBUTION IN A REFERENCE POPULATION, HAS BEEN CONFIRMED THE DECISION THRESHOLD FOR AR DIAGNOSIS. 99TH PERCENTILE = 76.2 PG/ML NOTE: HIGH-SENSITIVITY TROPONIN ASSAY IS NOT INTENDED TO BE USED IN ISOLATION BUT SHOULD BE INTERPRETED IN CONJUNCTION WITH OTHER DIAGNOSTIC AND CLINICAL INFORMATION. Performing Lab: see note ML - [facility] LB SARS-CoV-2 Ag* Reviewed date:05/19/2024 01:06:39 PM Interpretation: Performing Lab: Notes/Report: [facility] , SARS-CoV-2 Ag NEGATIVE NEGATIVE This test has not been FDA cleared or approved, but has been authorized by the FDA under an Emergency Use Authorization (EUA) for use by authorized laboratories certified under CLIA that meet the requirements to perform moderate or high complexity testing. This test has been authorized only for the detection of proteins from SARS-CoV-2, not for any other viruses or pathogens. The emergency use of this test is authorized for the duration of the declaration that circumstances exist justifying the authorization of emergency use of in vitro diagnostic tests for detection and/or diagnosis of Covid-19 under section 564(b)(1) of the Act, 21 U.S.C. 360bbb-3(b)(1), unless the declaration is terminated or authorization is revoked sooner. Performing Lab: see note ML - [facility] LB Blood Culture 1 Reviewed date:05/14/2024 08:49:23 AM Interpretation: Performing Lab: Notes/Report: LEFT AC [facility] , Blood Culture 1 See Below For Report Blood Culture 1 NG5D NO GROWTH AT 5 DAYS.^NO GROWTH AT 5 DAYS. Performing Lab: see note ML - [facility] LB TSH Reviewed date:05/08/2024 09:24:24 AM Interpretation: Performing Lab: Notes/Report: [facility] , Thyroid Stimulating Hormone 1.265 0.358-3.740 uIU/mL Performing Lab: see note ML - [facility] LB RSV Reviewed date:05/08/2024 09:24:24 AM Interpretation: Performing Lab: Notes/Report: [facility] , Respiratory Syncytial Virus Not Detected NOT DETECTE Performing Lab: see note ML - [facility] LB CBC AUTO DIFF Reviewed date:05/19/2024 01:06:39 PM Interpretation: Performing Lab: Notes/Report: [facility] , White Blood Count 8.2 4.0-11.0 10 3/uL Red Blood Count 2.46 4.70-6.10 10 6/uL Hemoglobin 7.8 14.0-18.0 g/dL Hematocrit 23.6 42.0-54.0 % RESULTS CALLED TO Morteza Muhammad RN @BY Azael Levin [place] at 0501 Mean Corpuscular Volume 95.9 80.0-94.0 fL Mean Corpuscular Hemoglobin 31.7 25.9-34.0 pg Mean Corpuscular HGB Conc 33.1 29.9-35.2 g/dL Red Cell Distribution Width 15.4 11.0-15.0 % Platelet Count 117 150-450 10 3/uL Mean Platelet Volume 8.8 9.5-13.5 fL Neutrophils Percent Auto 77.8 43.0-75.0 % Lymphocytes Percent Auto 13.2 20.5-60.0 % Monocytes Percent Auto 7.5 1.7-12.0 % Eosinophils Percent Auto 0.9 0.9-7.0 % Basophils Percent Auto 0.1 0.2-2.0 % Immature Granulocytes Pct Auto 0.5 0.0-0.5 % Neutrophils Absolute Auto 6.4 1.4-6.5 10 3/uL Lymphocytes Absolute Auto 1.1 1.2-3.8 10 3/uL Monocytes Absolute Auto 0.6 0.3-0.8 10 3/uL Eosinophils Absolute Auto 0.1 0.0-0.7 10 3/uL Basophils Absolute Auto 0.0 0.0-0.1 10 3/uL Immature Granulocytes Abs Auto 0.04 0.00-0.03 10 3/uL Performing Lab: see note - [facility] LB LACTATE or LACTIC ACID Reviewed date:05/08/2024 09:24:24 AM Interpretation: Performing Lab: Notes/Report: [facility] , Lactate/Lactic Acid 1.7 0.4-2.0 mmol/L Performing Lab: see note - [facility] LB BNP Reviewed date:05/08/2024 09:24:24 AM Interpretation: Performing Lab: Notes/Report: [facility] , NT Pro B Type Natriuretic Pept >94584.0 <=1800.0 pg/mL RESULTS CALLED TO FREDI MCDONALD AT 1748 Performing Lab: see note - [facility] LB XR chest 2V Reviewed date:05/06/2024 01:53:54 PM Interpretation: Performing Lab: Notes/Report: Source Facility: [place] [address] [place] [address] XRay Report Signed Patient: LEIGHTON ARCINIEGA MR#: [id number] : 1945 Acct:[id number] Age/Sex: 78 / M ADM Date: 05/02/24 Loc: [place] 219-[address]: Jayy Dutta M.D. Ordering Physician: Jayy Dutta M.D. Date of Service: 05/05/24 Procedure(s): XR chest 2V Accession Number(s): [id number] cc: Jayy Dutta M.D. [place] [id number] Patient Name: LEIGHTON ARCINIEGA MRN: [id number] date: 1945 Sex: M Assigned Patient Location: [place] Current Patient Location: [place] Accession/Order Number: [id number] Exam Date: 05/05/2024 09:11 Report Date: 05/05/2024 09:33 At the request of: JAYY DUTTA Procedure: XR chest 2V EXAMINATION: XR chest 2V HISTORY: follow up previous pna ; follow-up pneumonia COMPARISON: XR chest 05/02/2024, 04/27/2024 FINDINGS: LUNGS: Scattered dense infiltrates bilaterally, right greater than left, but slightly improved. VASCULATURE: No increased pulmonary vasculature. PLEURA: No convincing pleural effusions. No pneumothorax. CARDIAC: Stable cardiac pacer. No cardiomegaly. MEDIASTINUM: No visible mass or adenopathy. BONES: No fracture or visible bone lesion. OTHER: Negative. XR/XR chest 2V IMPRESSION: 1. Moderate bilateral pulmonary infiltrates which is slightly improved and are suspected represent slowly resolving pneumonia. Continued follow-up to document complete clearing is recommended. Electronically authenticated by: JOE CID Date: 05/05/2024 09:33 Dictated By: Joe Cid M.D. Signed By: 05/05/24935 DD/ 2 TD/TT: Contact Centre Supervisor: [place] [address] XRay Report Signed Patient: KULDIP ARCINIEGA MR#: [id number] : 1945 Acct:[id number] Age/Sex: 78 / M ADM Date: 05/02/24 Loc: [place] 219-[address]: Nova Dutta M.D. Ordering Physician: Jayy Dutta M.D. Date of Service: 05/05/24 Procedure(s): XR chest 2V Accession Number(s): [id number] cc: Jayy Dutta M.D. [place] [id number] Patient Name: LEIGHTON ARCINIEGA MRN: [id number] date: 1945 Sex: M Assigned Patient Location: [place] Current Patient Loca tion: MS Accession/Order Numb er: [id number] Exam Date: 05/05/2024 09:11 Report Date: 05/05/2024 09:33 At the request of: JAYY DUTTA Procedure: XR chest 2V EXAMINATION: XR chest 2V HISTORY: follow up previous pna ; follow-up pneumonia COMPARISON: XR chest 05/02/2024, 04/27/2024 FINDINGS: LUNGS: Scattered den se infiltrates bilaterally, right greater than left, but slightly improved. VASCULATURE: No incr eased pulmonary vasculature. PLEURA: No convincin g pleural effusions. No pneumothorax. CARDIAC: Stable card iac pacer. No cardiomegaly. MEDIASTINUM: No visi ble mass or adenopathy. BONES: No fracture o r visible bone lesion. OTHER: Negative. X R/XR chest 2V IMPRESSION: 1. Moderate bilatera l pulmonary infiltrates which is slightly improved and are suspected represent slowly resolving pneumonia. Continued follow-up to document complete clearing is recommended. Electronically authenticated by: JOE CID Date: 05/05/2024 09:33 Dictated By: Joe Cid M.D. Signed By: 05/05/2436 DD/ TD/TT: Contact Centre Supervisor: PROF Rodrigues(COMP METB) Reviewed date:05/05/2024 06:51:06 AM Interpretation: Performing Lab: Notes/Report: [facility] , Sodium 135 136-145 mmol/L Potassium 3.8 3.5-5.1 mmol/L Chloride 100 98-107 mmol/L Carbon Dioxide 25.1 21.0-32.0 mmol/L Anion Gap 13.7 Glucose 110 74-106 mg/dL Blood Urea Nitrogen 51.0 7.0-18.0 mg/dL Creatinine 2.34 0.70-1.30 mg/dL Estimated GFR ( Yaa 33 >=60 mL/min/1.73m 2 Estimated GFR (Non- Maryuri 27 >=60 mL/min/1.73m 2 BUN Creatinine Ratio 21.8 Calcium 8.4 8.5-10.1 mg/dL Bilirubin Total 0.4 0.2-1.0 mg/dL Aspartate Amino Transferase 15 15-37 U/L Alanine Aminotransferase 27 16-63 U/L Alkaline Phosphatase 48 46-116 U/L Total Protein 5.3 6.4-8.2 g/dL Albumin Level 2.5 3.4-5.0 g/dL Globulin 2.8 Albumin Globulin Ratio 0.9 Performing Lab: see note [facility] LB Epithelial Cells Reviewed date:05/22/2024 09:01:00 PM Interpretation: Performing Lab: Notes/Report: [facility] , Epithelial Cells See Below For Report Epithelial Cells Few Performing Lab: see note LC - [facility] LB Result 1 Reviewed date:05/22/2024 09:01:00 PM Interpretation: Performing Lab: Notes/Report: [facility] , Result 1 See Below For Report Result 1 Moderate number of gram positive cocci. Performing Lab: see note LC - [facility] LB Result 2 Reviewed date:05/22/2024 09:01:00 PM Interpretation: Performing Lab: Notes/Report: [facility] , Result 2 See Below For Report Result 2 Few gram negative rods. Performing Lab: see note LC - [facility] LB Result 3 Reviewed date:05/22/2024 09:01:00 PM Interpretation: Performing Lab: Notes/Report: [facility] , Result 3 See Below For Report Result 3 Few gram negative diplococci. Performing Lab: see note LC - [facility] LB Result 4 Reviewed date:05/22/2024 09:01:00 PM Interpretation: Performing Lab: Notes/Report: [facility] , Result 4 See Below For Report Result 4 INFORMATION SECURITY DIRECTOR Performing Lab: see note LC - [facility] LB Gram Stain Evaluation Reviewed date:05/22/2024 09:01:00 PM Interpretation: Performing Lab: Notes/Report: [facility] , Gram Stain Evaluation See Below For Report Gram Stain Evaluation This specimen is of good quality and is acceptable for routine Gram Stain Evaluation bacterial culture. Gram Stain Evaluation This specimen is of good quality and is acceptable for routine Performing Lab: see note LC - [facility] LB Lower Respiratory Culture Reviewed date:05/22/2024 09:01:00 PM Interpretation: Performing Lab: Notes/Report: [facility] , Lower Respiratory Culture See Below For Report Lower Respiratory Culture WILL FOLLOW Lower Respiratory Culture Routine respiratory cindy Lower Respiratory Culture WILL FOLLOW Lower Respiratory Culture Performed at: [facility] Lower Respiratory Culture WILL FOLLOW Lower Respiratory Culture [address], [place] [id number] Lower Respiratory Culture WILL FOLLOW Lower Respiratory Culture Senior Director Of [employer]: Francisco Gonzalez PhD, Phone: [phone] Lower Respiratory Culture WILL FOLLOW Performing Lab: see note LC - [facility] LB SEE REPORT - Title Insurance Examiner Id information not found for OBX-specific writer producer legend MAGNESIUM Reviewed date:05/05/2024 06:51:06 AM Interpretation: Performing Lab: Notes/Report: [facility] , Magnesium 1.8 1.8-2.4 mg/dL Performing Lab: see note ML - [facility] LB Troponin I High Sensitivity Reviewed date:05/21/2024 12:36:43 PM Interpretation: Performing Lab: Notes/Report: [facility] , Troponin I High Sensitivity 50.0 4.0-76.1 pg/mL CUT-OFF POINTS HAVE BEEN ESTABLISHED BASED ON THE FOURTH UNIVERSAL DEFINITION OF MYOCARDIAL INFARCTION. THE UPPER REFERENCE LIMIT (URL) OF TROPONIN, DEFINED THE 99TH PERCENTILE OF cTnI DISTRIBUTION IN A REFERENCE POPULATION, HAS BEEN CONFIRMED THE DECISION THRESHOLD FOR AR DIAGNOSIS. 99TH PERCENTILE = 76.2 PG/ML NOTE: HIGH-SENSITIVITY TROPONIN ASSAY IS NOT INTENDED TO BE USED IN ISOLATION BUT SHOULD BE INTERPRETED IN CONJUNCTION WITH OTHER DIAGNOSTIC AND CLINICAL INFORMATION. Performing Lab: see note ML - [facility] LB CBC AUTO DIFF Reviewed date:05/05/2024 06:51:06 AM Interpretation: Performing Lab: Notes/Report: [facility] , White Blood Count 11.1 4.0-11.0 10 3/uL Red Blood Count 2.77 4.70-6.10 10 6/uL Hemoglobin 8.8 14.0-18.0 g/dL Hematocrit 26.4 42.0-54.0 % Mean Corpuscular Volume 95.3 80.0-94.0 fL Mean Corpuscular Hemoglobin 31.8 25.9-34.0 pg Mean Corpuscular HGB Conc 33.3 29.9-35.2 g/dL Red Cell Distribution Width 15.8 11.0-15.0 % Platelet Count 169 150-450 10 3/uL Mean Platelet Volume 9.4 9.5-13.5 fL Neutrophils Percent Auto 94.9 43.0-75.0 % Lymphocytes Percent Auto 2.5 20.5-60.0 % Monocytes Percent Auto 2.1 1.7-12.0 % Eosinophils Percent Auto 0.0 0.9-7.0 % Basophils Percent Auto 0.0 0.2-2.0 % Immature Granulocytes Pct Auto 0.5 0.0-0.5 % Neutrophils Absolute Auto 10.5 1.4-6.5 10 3/uL Lymphocytes Absolute Auto 0.3 1.2-3.8 10 3/uL Monocytes Absolute Auto 0.2 0.3-0.8 10 3/uL Eosinophils Absolute Auto 0.0 0.0-0.7 10 3/uL Basophils Absolute Auto 0.0 0.0-0.1 10 3/uL Immature Granulocytes Abs Auto 0.06 0.00-0.03 10 3/uL Performing Lab: see note [facility] LB BNP Reviewed date:05/05/2024 06:51:06 AM Interpretation: Performing Lab: Notes/Report: [facility] , NT Pro B Type Natriuretic Pept >25308.0 <=1800.0 pg/mL RESULTS CALLED TO Morteza Salazar RN @BY Azael Levin [place] at 0625 Performing Lab: see note [facility] LB Urine Culture, Routine Reviewed date:05/06/2024 01:53:54 PM Interpretation: Performing Lab: Notes/Report: [facility] , Urine Culture, Routine See Below For Report Urine Culture, Routine Urine Culture, Routine No growth Urine Culture, Routine Urine Culture, Routine [facility]formed at[facility], Routine Urine Culture, Routine [address], [place] [id number] Urine Culture, Routine Urine Culture, Routine Senior Director Of [employer]: Ld Gonzalez PhD, Phone: [phone] Urine Culture, Routine Performing Lab: see note LC - [facility] LB SEE REPORT - Title Insurance Examiner Id information not found for OBX-specific writer producer legend Blood Culture 2 Reviewed date:05/08/2024 04:47:39 PM Interpretation: Performing Lab: Notes/Report: [facility] , Blood Culture 2 See Below For Report Blood Culture 2 NG5D NO GROWTH AT 5 DAYS.^NO GROWTH AT 5 DAYS. Performing Lab: see note [facility] LB Blood Culture 1 Reviewed date:05/08/2024 04:47:39 PM Interpretation: Performing Lab: Notes/Report: [facility] , Blood Culture 1 See Below For Report Blood Culture 1 NG5D NO GROWTH AT 5 DAYS.^NO GROWTH AT 5 DAYS. Performing Lab: see note ML - [facility] LB PROF 14(COMP METB) Reviewed date:05/03/2024 09:38:51 PM Interpretation: Performing Lab: Notes/Report: [facility] , Sodium 135 136-145 mmol/L Potassium 4.4 3.5-5.1 mmol/L Chloride 103 98-107 mmol/L Carbon Dioxide 23.9 21.0-32.0 mmol/L Anion Gap 12.5 Glucose 77 74-106 mg/dL Blood Urea Nitrogen 36.0 7.0-18.0 mg/dL Creatinine 1.66 0.70-1.30 mg/dL Estimated GFR ( Yaa 49 >=60 mL/min/1.73m 2 Estimated GFR (Non- Maryuri 40 >=60 mL/min/1.73m 2 BUN Creatinine Ratio 21.7 Calcium 8.0 8.5-10.1 mg/dL Bilirubin Total 0.4 0.2-1.0 mg/dL Aspartate Amino Transferase 15 15-37 U/L Alanine Aminotransferase 18 16-63 U/L Alkaline Phosphatase 52 46-116 U/L Total Protein 5.2 6.4-8.2 g/dL Albumin Level 2.4 3.4-5.0 g/dL Globulin 2.8 Albumin Globulin Ratio 0.9 Performing Lab: see note ML - [facility] LB MAGNESIUM Reviewed date:05/03/2024 09:38:51 PM Interpretation: Performing Lab: Notes/Report: [facility] , Magnesium 1.9 1.8-2.4 mg/dL Performing Lab: see note ML - [facility] LB BNP Reviewed date:05/03/2024 09:38:51 PM Interpretation: Performing Lab: Notes/Report: [facility] , NT Pro B Type Natriuretic Pept >48511.0 <=1800.0 pg/mL RESULTS CALLED TO sam wright rn Performing Lab: see note - [facility] LB Gram Stain Evaluation Reviewed date:05/07/2024 11:04:39 AM Interpretation: Performing Lab: Notes/Report: [facility] , Gram Stain Evaluation See Below For Report Gram Stain Evaluation This specimen is of good quality and is acceptable for routine Gram Stain Evaluation bacterial culture. Gram Stain Evaluation This specimen is of good quality and is acceptable for routine Performing Lab: see note LC - [facility] LB XR chest 2V Reviewed date:04/30/2024 11:12:25 AM Interpretation: Performing Lab: Notes/Report: Source Facility: [place] [address] [place] [address] XRay Report Signed Patient: LEIGHTON ARCINIEGA MR#: [id number] : 1945 Acct:[id number] Age/Sex: 78 / M ADM Date: 04/27/24 Loc: LAB Attending Dr: Jayy Dutta M.D. Ordering Physician: Jayy Dutta M.D. Date of Service: 04/27/24 Procedure(s): XR chest 2V Accession Number(s): [id number] cc: Jayy Dutta M.D. [place] [id number] Patient Name: LEIGHTON ARCINIEGA MRN: [id number] date: 1945 Sex: M Assigned Patient Location: LAB Current Patient Location: LAB Accession/Order Number: [id number] Exam Date: 04/27/2024 15:12 Report Date: 04/27/2024 21:54 At the request of: JAYY DUTTA Procedure: XR chest 2V EXAM: XR chest 2V HISTORY: Acute Bronchitis, J20.9 COMPARISON: 04/21/2024 TECHNIQUE: Upright PA and lateral chest x-ray FINDINGS: Increasing interstitial infiltrates are seen in the right mid and lower lung. Underlying chronic interstitial changes are also present. There is slight blunting of both costophrenic angles, without evidence of a pneumothorax. The heart is not enlarged and the vasculature is not distended. A left-sided pacemaker remains in place. XR/XR chest 2V IMPRESSION: Increasing interstitial infiltrates are seen in the right mid and lower lung. This is superimposed upon chronic changes diffusely throughout the lungs. The heart is not enlarged and there is no overt cardiac decompensation. Electronically authenticated by: YARELIS PIMENTEL Date: 04/27/2024 21:54 Dictated By: Yarelis Pimentel M.D. Signed By: 04/27/242156 DD/ 53 TD/TT: Contact Centre Supervisor: [place] [address] XRay Report Signed Patient: KULDIP ARCINIEGA MR#: [id number] : 1945 Acct:[id number] Age/Sex: 78 / M ADM Date: 04/27/24 Loc: LAB Attending Dr: Nova Dutta M.D. Ordering Physician: Jayy Dutta M.D. Date of Service: 04/27/24 Procedure(s): XR chest 2V Accession Number(s): [id number] cc: Jayy Dutta M.D. [place] [id number] Patient Name: LEIGHTON ARCINIEGA MRN: [id number] date: 1945 Sex: M Assigned Patient Location: LAB Current Patient Loca tion: LAB Accession/Order Numb er: [id number] Exam Date: 04/27/2024 15:12 Report Date: 04/27/2024 21:54 At the request of: JAYY DUTTA Procedure: XR chest 2V EXAM: XR chest 2V HISTORY: Acute Bronchitis, J20.9 COMPARISON: 04/21/2024 TECHNIQUE: Upright P A and lateral chest x-ray FINDINGS: Increasing interstitial infiltrates are seen in the right mid and lower lung. Underlyi ng chronic interstitial changes are also present. There is slight blunting of b oth costophrenic angles, without evidence of a pneumothorax. The he art is not enlarged and the vasculature is not distended. A left-sided pacemaker remains in place. X R/XR chest 2V IMPRESSION: Increasing interstit ial infiltrates are seen in the right mid and lower lung. This is superimposed upon chronic changes diffusely throughout the lungs. The heart is not enlarge d and there is no overt cardiac decompensation. Electronically authenticated by: YARELIS PIMENTEL Date: 04/27/2024 21:54 Dictated By: Tamie Pimentel M.D. Signed By: 04/27/242156 DD/ 53 TD/TT: Contact Centre Supervisor: Lower Respiratory Culture Reviewed date:05/07/2024 11:04:39 AM Interpretation: Performing Lab: Notes/Report: [facility] , Lower Respiratory Culture See Below For Report Lower Respiratory Culture WILL FOLLOW Lower Respiratory Culture Routine respiratory cindy Lower Respiratory Culture WILL FOLLOW Lower Respiratory Culture Performed at: [facility] Lower Respiratory Culture WILL FOLLOW Lower Respiratory Culture [address], [place] [id number] Lower Respiratory Culture WILL FOLLOW Lower Respiratory Culture Senior Director Of [employer]: Francisco Gonzalez PhD, Phone: [phone] Lower Respiratory Culture WILL FOLLOW Performing Lab: see note LC - [facility] LB SEE REPORT - Title Insurance Examiner Id information not found for OBX-specific writer producer legend Gram Stain Evaluation Reviewed date:04/30/2024 11:12:25 AM Interpretation: Performing Lab: Notes/Report: [facility] , Gram Stain Evaluation See Below For Report Gram Stain Evaluation This specimen is of good quality and is acceptable for routine Gram Stain Evaluation bacterial culture. Gram Stain Evaluation This specimen is of good quality and is acceptable for routine Performing Lab: see note LC - [facility] LB Result 4 Reviewed date:05/07/2024 11:04:39 AM Interpretation: Performing Lab: Notes/Report: [facility] , Result 4 See Below For Report Result 4 INFORMATION SECURITY DIRECTOR Performing Lab: see note LC - [facility] LB Result 3 Reviewed date:05/07/2024 11:04:39 AM Interpretation: Performing Lab: Notes/Report: [facility] , Result 3 See Below For Report Result 3 INFORMATION SECURITY DIRECTOR Performing Lab: see note LC - [facility] LB Result 2 Reviewed date:05/07/2024 11:04:39 AM Interpretation: Performing Lab: Notes/Report: [facility] , Result 2 See Below For Report Result 2 INFORMATION SECURITY DIRECTOR Performing Lab: see note LC - [facility] LB Result 1 Reviewed date:05/07/2024 11:04:39 AM Interpretation: Performing Lab: Notes/Report: [facility] , Result 1 See Below For Report Result 1 Few gram positive rods. Performing Lab: see note LC - [facility] LB Epithelial Cells Reviewed date:05/07/2024 11:04:39 AM Interpretation: Performing Lab: Notes/Report: [facility] , Epithelial Cells See Below For Report Epithelial Cells Few Performing Lab: see note LC - [facility] LB White Blood Cells Reviewed date:05/01/2024 01:09:09 PM Interpretation: Performing Lab: Notes/Report: [facility] , White Blood Cells See Below For Report White Blood Cells White Blood Cells None seen White Blood Cells Performing Lab: see note LC - [facility] LB PROF CHEM 8 (BAS METB) Reviewed date:04/22/2024 04:13:05 PM Interpretation: Performing Lab: Notes/Report: [facility] , Sodium 128 136-145 mmol/L Potassium 4.8 3.5-5.1 mmol/L Chloride 97 98-107 mmol/L Carbon Dioxide 21.8 21.0-32.0 mmol/L Anion Gap 14.0 Glucose 275 74-106 mg/dL Blood Urea Nitrogen 110.0 7.0-18.0 mg/dL RESULTS CALLED TO Morteza Connors RN @BY Azael Levin [place] at 0630 Creatinine 2.87 0.70-1.30 mg/dL Estimated GFR ( Yaa 26 >=60 mL/min/1.73m 2 Estimated GFR (Non- Maryuri 21 >=60 mL/min/1.73m 2 BUN Creatinine Ratio 38.3 Calcium 8.8 8.5-10.1 mg/dL Performing Lab: see note ML - [facility] LB CBC AUTO DIFF Reviewed date:04/22/2024 04:13:05 PM Interpretation: Performing Lab: Notes/Report: [facility] , White Blood Count 11.3 4.0-11.0 10 3/uL Red Blood Count 2.90 4.70-6.10 10 6/uL Hemoglobin 9.0 14.0-18.0 g/dL Hematocrit 27.0 42.0-54.0 % Mean Corpuscular Volume 93.1 80.0-94.0 fL Mean Corpuscular Hemoglobin 31.0 25.9-34.0 pg Mean Corpuscular HGB Conc 33.3 29.9-35.2 g/dL Red Cell Distribution Width 13.8 11.0-15.0 % Platelet Count 259 150-450 10 3/uL Mean Platelet Volume 8.6 9.5-13.5 fL Neutrophils Percent Auto 85.1 43.0-75.0 % Lymphocytes Percent Auto 6.5 20.5-60.0 % Monocytes Percent Auto 6.8 1.7-12.0 % Eosinophils Percent Auto 0.0 0.9-7.0 % Basophils Percent Auto 0.1 0.2-2.0 % Immature Granulocytes Pct Auto 1.5 0.0-0.5 % Neutrophils Absolute Auto 9.6 1.4-6.5 10 3/uL Lymphocytes Absolute Auto 0.7 1.2-3.8 10 3/uL Monocytes Absolute Auto 0.8 0.3-0.8 10 3/uL Eosinophils Absolute Auto 0.0 0.0-0.7 10 3/uL Basophils Absolute Auto 0.0 0.0-0.1 10 3/uL Immature Granulocytes Abs Auto 0.17 0.00-0.03 10 3/uL Performing Lab: see note ML - [facility] LB BNP Reviewed date:04/22/2024 04:13:05 PM Interpretation: Performing Lab: Notes/Report: [facility] , NT Pro B Type Natriuretic Pept >03783.0 <=1800.0 pg/mL RESULTS CALLED TO Morteza Connors RN @BY Azael Levin [place] at 0630 Performing Lab: see note ML - [facility] LB Troponin I High Sensitivity Reviewed date:04/22/2024 04:13:05 PM Interpretation: Performing Lab: Notes/Report: [facility] , Troponin I High Sensitivity 42.1 4.0-76.1 pg/mL CUT-OFF POINTS HAVE BEEN ESTABLISHED BASED ON THE FOURTH UNIVERSAL DEFINITION OF MYOCARDIAL INFARCTION. THE UPPER REFERENCE LIMIT (URL) OF TROPONIN, DEFINED THE 99TH PERCENTILE OF cTnI DISTRIBUTION IN A REFERENCE POPULATION, HAS BEEN CONFIRMED THE DECISION THRESHOLD FOR AR DIAGNOSIS. 99TH PERCENTILE = 76.2 PG/ML NOTE: HIGH-SENSITIVITY TROPONIN ASSAY IS NOT INTENDED TO BE USED IN ISOLATION BUT SHOULD BE INTERPRETED IN CONJUNCTION WITH OTHER DIAGNOSTIC AND CLINICAL INFORMATION. Performing Lab: see note ML - [facility] LB BNP Reviewed date:04/22/2024 04:13:05 PM Interpretation: Performing Lab: Notes/Report: [facility] , NT Pro B Type Natriuretic Pept >18144.0 <=1800.0 pg/mL RESULTS CALLED TO Gayle Borges RN @BY Azael Levin [place] at 0630 Performing Lab: see note ML - [facility] LB CBC AUTO DIFF Reviewed date:04/20/2024 08:00:07 PM Interpretation: Performing Lab: Notes/Report: [facility] , White Blood Count 12.9 4.0-11.0 10 3/uL Red Blood Count 2.87 4.70-6.10 10 6/uL Hemoglobin 9.1 14.0-18.0 g/dL Hematocrit 26.7 42.0-54.0 % Mean Corpuscular Volume 93.0 80.0-94.0 fL Mean Corpuscular Hemoglobin 31.7 25.9-34.0 pg Mean Corpuscular HGB Conc 34.1 29.9-35.2 g/dL Red Cell Distribution Width 13.5 11.0-15.0 % Platelet Count 274 150-450 10 3/uL Mean Platelet Volume 8.3 9.5-13.5 fL Neutrophils Percent Auto 92.0 43.0-75.0 % Lymphocytes Percent Auto 2.7 20.5-60.0 % Monocytes Percent Auto 4.6 1.7-12.0 % Eosinophils Percent Auto 0.0 0.9-7.0 % Basophils Percent Auto 0.1 0.2-2.0 % Immature Granulocytes Pct Auto 0.6 0.0-0.5 % Neutrophils Absolute Auto 11.9 1.4-6.5 10 3/uL Lymphocytes Absolute Auto 0.4 1.2-3.8 10 3/uL Monocytes Absolute Auto 0.6 0.3-0.8 10 3/uL Eosinophils Absolute Auto 0.0 0.0-0.7 10 3/uL Basophils Absolute Auto 0.0 0.0-0.1 10 3/uL Immature Granulocytes Abs Auto 0.08 0.00-0.03 10 3/uL Performing Lab: see note ML - [facility] LB BNP Reviewed date:04/20/2024 08:00:07 PM Interpretation: Performing Lab: Notes/Report: [facility] , NT Pro B Type Natriuretic Pept >61642.0 <=1800.0 pg/mL RESULTS CALLED TO RIGO GUAJARDO RN AT 1128 Performing Lab: see note ML - [facility] LB CT chest wo con Reviewed date:04/19/2024 12:09:38 PM Interpretation: Performing Lab: Notes/Report: Source Facility: [place] [address] [address] Scan Report Signed Patient: LEIGHTON ARCINIEGA MR#: [id number] : 1945 Acct:[id number] Age/Sex: 78 / M ADM Date: 04/15/24 Loc: [place] 203-[address]: Jayy Dutta M.D. Ordering Physician: Coy Guidry D.O. Date of Service: 04/19/24 Procedure(s): CT chest wo con Accession Number(s): [id number] cc: Jayy Dutta M.D. [place] [address] Patient Name: LEIGHTON ARCINIEGA MRN: [id number] date: 1945 Sex: M Assigned Patient Location: [place] Current Patient Location: [place] Accession/Order Number: [id number] Exam Date: 04/19/2024 11:15 Report Date: 04/19/2024 11:48 At the request of: COY GUIDRY Procedure: CT chest wo con EXAMINATION: CT chest wo con HISTORY: Hypoxia, worsening CXR COMPARISON: CT chest 05/25/2019 TECHNIQUE: Axial, Coronal, and Sagittal images were created without the administration of IV contrast material. Dose reduction techniques were achieved by using automated exposure control and/or adjustment of mA and/or kV according to patient size and/or use of iterative reconstruction technique. FINDINGS: LUNGS: Moderate amount of patchy and confluent opacities within mid and lower lung regions bilaterally. PLEURA: Bilateral pleural effusions, 2.0 cm in thickness on right, 1.1 cm on left. VASCULATURE: No abnormality. DAVID: Mild adenopathy. MEDIASTINUM: Mild adenopathy; likely reactive. CARDIAC:Cardiac pacer/AICD. No enlargement, pericardial thickening, or pericardial effusion. Coronary Artery calcifications: Coronary calcifications are mild. AORTA: No aneurysm or dissection. CHEST WALL: Persistent 2.6 cm nonspecific nodule within subcutaneous fat at lower lateral margin of right breast. BONES: No bone lesion or fracture. LIMITED ABDOMEN: No suspicious findings. Limited images of the upper abdomen. OTHER: Negative. CT/CT chest wo con IMPRESSION: 1. Moderate amount of bilateral infiltrates suggestive of pneumonia. 2. Small to moderate bilateral pleural effusions. Electronically authenticated by: JOE CID Date: 04/19/2024 11:48 Dictated By: Joe Cid M.D. Signed By: 04/19/24 1151 DD/ 1148 TD/TT: Contact Centre Supervisor: [place] [address] CT Scan Report Signed Patient: KULDIP ARCINIEGA MR#: [id number] : 1945 Acct:[id number] Age/Sex: 78 / M ADM Date: 04/15/24 Loc: [place] 203-[address]: Nova Dutta M.D. Ordering Physician: Coy Guidry D.O. Date of Service: 04/19/24 Procedure(s): CT evelin st wo con Accession Number(s): [id number] cc: Jayy Dutta M.D. [place] [address] Patient Name: LEIGHTON ARCINIEGA MRN: [id number] date: 1945 Sex: M Assigned Patient Location: [place] Current Patient Loca tion: [place] Accession/Order Numb er: [id number] Exam Date: 04/19/2024 11:15 Report Date: 04/19/2024 11:48 At the request of: COY GUIDRY Procedure: CT chest wo con EXAMINATION: CT ches t wo con HISTORY: Hypoxia, worsening CXR COMPARISON: CT chest 05/25/2019 TECHNIQUE: Axial, Coronal, and Sagittal images were created without the administration of IV contrast material. Dose reduction techniques were achieved by using automated exposure control and/or adjustment of mA and/or kV according to patient size and/ or use of iterative reconstruction technique. FINDINGS: LUNGS: Moderate amou nt of patchy and confluent opacities within mid and lower lung regions bilaterally. PLEURA: Bilateral pl eural effusions, 2.0 cm in thickness on right, 1.1 cm on left. VASCULATURE: No abnormality. DAVID: Mild adenopathy. MEDIASTINUM: Mild adenopathy; likely reactive. CARDIAC:Cardiac pacer/AICD. No enlargement, pericardial thickening, or pericardial effusion . Coronary Artery calcifications: Coronary calcifications are mild. AORTA: No aneurysm o r dissection. CHEST WALL: Persiste nt 2.6 cm nonspecific nodule within subcutaneous fat at lower lateral margin of right breast. BONES: No bone lesio n or fracture. LIMITED ABDOMEN: No suspicious findings. Limited images of the upper abdomen. OTHER: Negative. C T/CT chest wo con IMPRESSION: 1. Moderate amount o f bilateral infiltrates suggestive of pneumonia. 2. Small to moderate bilateral pleural effusions. Electronically authenticated by: JOE CID Date: 04/19/2024 11:48 Dictated By: Joe Cid M.D. Signed By: 04/19/24 1151 DD/ 1148 TD/TT: Contact Centre Supervisor: XR chest 2V Reviewed date:04/19/2024 08:45:34 PM Interpretation: Performing Lab: Notes/Report: Source Facility: [place] [address] XRay Report Signed Patient: LEIGHTON ARCINIEGA MR#: [id number] : 1945 Acct:[id number] Age/Sex: 78 / M ADM Date: 04/15/24 Loc: [place] 203-[address]: Jayy Dutta M.D. Ordering Physician: Jayy Dutta M.D. Date of Service: 04/19/24 Procedure(s): XR chest 2V Accession Number(s): [id number] cc: Jayy Dutta M.D. [place] [address] Patient Name: LEIGHTON ARCINIEGA MRN: [id number] date: 1945 Sex: M Assigned Patient Location: [place] Current Patient Location: [place] Accession/Order Number: [id number] Exam Date: 04/19/2024 08:52 Report Date: 04/19/2024 09:30 At the request of: JAYY DUTTA Procedure: XR chest 2V CLINICAL HISTORY: Follow up pneumonia. EXAMINATION: PA and lateral chest: 04/19/2024. COMPARISON: 04/15/2024. FINDINGS: The patient is rotated, lordotic. There are degenerative changes of thoracolumbar spine. The trachea is midline. The heart size remains enlarged. The aorta has normal contour. There is a bipolar pacemaker with electrode leads extending to right atrium, right ventricle. There are diffuse infiltrative changes involving a significant portion of the right lung and there are developing infiltrative changes in the left upper lobe, left lower lobe. There is no significant pulmonary edema or pneumothorax. XR/XR chest 2V IMPRESSION: 1. Worsening pneumonia involving the right lung and developing pneumonia in the left upper, left lower lobe. 2. Stable cardiomegaly. Electronically authenticated by: PATRICIA JOSE Date: 04/19/2024 09:30 Dictated By: Patricia Jose M.D. Signed By: 04/19/24932 DD/ 9 TD/TT: Contact Centre Supervisor: [place] [address] XRay Report Signed Patient: KULDIP ARCINIEGA MR#: [id number] : 1945 Acct:[id number] Age/Sex: 78 / M ADM Date: 04/15/24 Loc: [place] 203-[address]: Nova Dutta M.D. Ordering Physician: Jayy Dutta M.D. Date of Service: 04/19/24 Procedure(s): XR chest 2V Accession Number(s): [id number] cc: Jayy Dutta M.D. [place] [address] Patient Name: LEIGHTON ARCINIEGA MRN: [id number] date: 1945 Sex: M Assigned Patient Location: [place] Current Patient Loca tion: [place] Accession/Order Numb er: [id number] Exam Date: 04/19/2024 08:52 Report Date: 04/19/2024 09:30 At the request of: JAYY DUTTA Procedure: XR chest 2V CLINICAL HISTORY: Fo llow up pneumonia. EXAMINATION: PA and lateral chest: 04/19/2024. COMPARISON: 04/15/2024. FINDINGS: The patien t is rotated, lordotic. There are degenerative changes of thoracolumbar spine. The trachea is midline. The heart size remai ns enlarged. The aorta has normal contour. There is a bipolar pacemaker with electrode leads extending to right atrium, right ventricle. There are diffuse infiltrative changes involving a significant portion of the right lung and there are developing infiltrat leonela changes in the left upper lobe, left lower lobe. There is no significant pulmonary edema or pneumothorax. X R/XR chest 2V IMPRESSION: 1. Worsening pneumon ia involving the right lung and developing pneumonia in the left upper, left low er lobe. 2. Stable cardiomegaly. Electronically authenticated by: PATRICIA JOSE Date: 04/19/2024 09:30 Dictated By: Patricia Jose M.D. Signed By: 04/19/24932 DD/ 9 TD/TT: Contact Centre Supervisor: PROF Rodrigues(COMP METB) Reviewed date:04/19/2024 08:45:34 PM Interpretation: Performing Lab: Notes/Report: [facility] , Sodium 129 136-145 mmol/L Potassium 4.3 3.5-5.1 mmol/L Chloride 97 98-107 mmol/L Carbon Dioxide 24.8 21.0-32.0 mmol/L Anion Gap 11.5 Glucose 127 74-106 mg/dL Blood Urea Nitrogen 81.0 7.0-18.0 mg/dL RESULTS CALLED TO LATA LOPEZ RN @BY Oriana Vergara at 0631 Creatinine 2.54 0.70-1.30 mg/dL Estimated GFR ( Yaa 30 >=60 mL/min/1.73m 2 Estimated GFR (Non- Maryuri 25 >=60 mL/min/1.73m 2 BUN Creatinine Ratio 31.9 Calcium 9.4 8.5-10.1 mg/dL Bilirubin Total 0.4 0.2-1.0 mg/dL Aspartate Amino Transferase 17 15-37 U/L Alanine Aminotransferase 20 16-63 U/L Alkaline Phosphatase 62 46-116 U/L Total Protein 6.4 6.4-8.2 g/dL Albumin Level 2.6 3.4-5.0 g/dL Globulin 3.8 Albumin Globulin Ratio 0.7 Performing Lab: see note ML - [facility] LB BNP Reviewed date:04/19/2024 08:45:34 PM Interpretation: Performing Lab: Notes/Report: [facility] , NT Pro B Type Natriuretic Pept 18040.0 <=1800.0 pg/mL RESULTS CALLED TO KACEY MENDOZA, RN @BY Lata Marie at 0918 Performing Lab: see note ML - [facility] LB Manual Differential Reviewed date:04/18/2024 04:36:52 PM Interpretation: Performing Lab: Notes/Report: [facility] , Segmented Neutrophils % Manual 98.0 43.0-75.0 Lymphocytes Percent Manual 1.0 20.5-60.0 % Monocytes Percent Manual 1.0 1.7-12.0 % Eosinophils Percent Manual 0.0 0.9-7.0 % Basophils Percent Manual 0.0 0.2-2.0 % Segmented Neut Absolute Manual 16.46 1.4-6.5 10 3/uL Lymphocytes Absolute Manual 0.16 1.20-3.80 10 3/uL Monocytes Absolute Manual 0.16 0.30-0.80 10 3/uL Eosinophils Absolute Manual 0.00 0.00-0.70 10 3/uL Basophils Abs Manual 0.00 0.00-0.10 1 0 3/uL Hypochromasia 2+ Performing Lab: see note ML - [facility] LB PROF 14(COMP METB) Reviewed date:04/17/2024 08:10:35 PM Interpretation: Performing Lab: Notes/Report: [facility] , Sodium 134 136-145 mmol/L Potassium 3.9 3.5-5.1 mmol/L Chloride 100 98-107 mmol/L Carbon Dioxide 22.6 21.0-32.0 mmol/L Anion Gap 15.3 Glucose 337 74-106 mg/dL Blood Urea Nitrogen 46.0 7.0-18.0 mg/dL Creatinine 2.34 0.70-1.30 mg/dL Estimated GFR ( Yaa 33 >=60 mL/min/1.73m 2 Estimated GFR (Non- Maryuri 27 >=60 mL/min/1.73m 2 BUN Creatinine Ratio 19.7 Calcium 8.9 8.5-10.1 mg/dL Bilirubin Total 0.3 0.2-1.0 mg/dL Aspartate Amino Transferase 11 15-37 U/L Alanine Aminotransferase 15 16-63 U/L Alkaline Phosphatase 57 46-116 U/L Total Protein 6.0 6.4-8.2 g/dL Albumin Level 2.2 3.4-5.0 g/dL Globulin 3.8 Albumin Globulin Ratio 0.6 Performing Lab: see note ML - [facility] LB CBC AUTO DIFF Reviewed date:04/17/2024 08:10:35 PM Interpretation: Performing Lab: Notes/Report: [facility] , White Blood Count 7.0 4.0-11.0 10 3/uL Red Blood Count 3.03 4.70-6.10 10 6/uL Hemoglobin 9.8 14.0-18.0 g/dL Hematocrit 28.9 42.0-54.0 % Mean Corpuscular Volume 95.4 80.0-94.0 fL Mean Corpuscular Hemoglobin 32.3 25.9-34.0 pg Mean Corpuscular HGB Conc 33.9 29.9-35.2 g/dL Red Cell Distribution Width 13.8 11.0-15.0 % Platelet Count 221 150-450 10 3/uL Mean Platelet Volume 8.5 9.5-13.5 fL Neutrophils Percent Auto 93.6 43.0-75.0 % Lymphocytes Percent Auto 5.0 20.5-60.0 % Monocytes Percent Auto 1.0 1.7-12.0 % Eosinophils Percent Auto 0.0 0.9-7.0 % Basophils Percent Auto 0.0 0.2-2.0 % Immature Granulocytes Pct Auto 0.4 0.0-0.5 % Neutrophils Absolute Auto 6.5 1.4-6.5 10 3/uL Lymphocytes Absolute Auto 0.4 1.2-3.8 10 3/uL Monocytes Absolute Auto 0.1 0.3-0.8 10 3/uL Eosinophils Absolute Auto 0.0 0.0-0.7 10 3/uL Basophils Absolute Auto 0.0 0.0-0.1 10 3/uL Immature Granulocytes Abs Auto 0.03 0.00-0.03 10 3/uL Performing Lab: see note ML - [facility] LB Troponin I High Sensitivity Reviewed date:04/17/2024 08:10:35 PM Interpretation: Performing Lab: Notes/Report: [facility] , Troponin I High Sensitivity 32.8 4.0-76.1 pg/mL CUT-OFF POINTS HAVE BEEN ESTABLISHED BASED ON THE FOURTH UNIVERSAL DEFINITION OF MYOCARDIAL INFARCTION. THE UPPER REFERENCE LIMIT (URL) OF TROPONIN, DEFINED THE 99TH PERCENTILE OF cTnI DISTRIBUTION IN A REFERENCE POPULATION, HAS BEEN CONFIRMED THE DECISION THRESHOLD FOR AR DIAGNOSIS. 99TH PERCENTILE = 76.2 PG/ML NOTE: HIGH-SENSITIVITY TROPONIN ASSAY IS NOT INTENDED TO BE USED IN ISOLATION BUT SHOULD BE INTERPRETED IN CONJUNCTION WITH OTHER DIAGNOSTIC AND CLINICAL INFORMATION. Performing Lab: see note ML - [facility] LB ECG 12 lead Reviewed date:04/17/2024 08:10:35 PM Interpretation: Performing Lab: Notes/Report: Source Facility: [place] [address] [place] [address] Electrocardiograph Report Signed Patient: LEIGHTON ARCINIEGA MR#: [id number] : 1945 Acct:[id number] Age/Sex: 78 / M ADM Date: 04/15/24 Loc: [place] 203- Attending Dr: Jayy Dutta M.D. Ordering Physician: Shaikh Radha Mayes Date of Service: 04/16/24 Procedure(s): ECG 12 lead Accession Number(s): [id number] cc: [facility] Test Date: 2024-04-16 Pat Name: LEIGHTON ARCINIEGA Department: Room: [facility] [place] Gender: Male [employer] Design Applier: : 1945 Requested By: [id number] Order Number: [id number] Reading MD: JAYY DUTTA Measurements Intervals [place] Rate: 85 P: SC: QRS: -68 QRSD: 202 T: 103 QT: 477 QTc: 570 Interpretive Statements ELECTRONIC VENTRICULAR PACEMAKER ABNORMAL RHYTHM ECG Compared to ECG 04/15/2024 19:58:01 No significant changes Electronically Signed On 04-17-2024 9:25:00 EST by JAYY DUTTA Dictated By: Jayy Dutta M.D. Signed By: 04/17/24924 DD/ 1612 TD/TT: Contact Centre Supervisor: [place] [address] Electrocardiograph Report Signed Patient: KULDIP ARCINIEGA MR#: [id number] : 1945 Acct:[id number] Age/Sex: 78 / M ADM Date: 04/15/24 Loc: [place] -[address]: Nova Dutta M.D. Ordering Physician: Shaikh Radha Mayes Date of Service: 04/16/24 Procedure(s): ECG 12 lead Accession Number(s): [id number] cc: [facility] Test Date: 2024-04-16 Pat Name: LEIGHTON CHAVIRA ARDS Department: 59 Room: [facility] [place] Gender: Male Plastic Design Applier: : 1945 Requ ested By: [id number] Order Number: [id number] Reading MD: JAYY DUTTA Measurements Intervals [place] Rate: 85 P: SC: QRS: -68 QRSD: 202 T: 103 QT: 477 QTc: 570 Interpretive Statements ELECTRONIC VENTRICUL AR PACEMAKER ABNORMAL RHYTHM ECG Compared to ECG 04/15/2024 19:58:01 No significant changes Electronically Katalina d On 04-17-2024 9:25:00 EST by JAYY DUTTA Dictated By: Grover Dutta M.D. Signed By: 04/17/24924 DD/ 1612 TD/TT: Contact Centre Supervisor: Troponin I High Sensitivity Reviewed date:04/16/2024 12:05:16 PM Interpretation: Performing Lab: Notes/Report: [facility] , Troponin I High Sensitivity 45.3 4.0-76.1 pg/mL CUT-OFF POINTS HAVE BEEN ESTABLISHED BASED ON THE FOURTH UNIVERSAL DEFINITION OF MYOCARDIAL INFARCTION. THE UPPER REFERENCE LIMIT (URL) OF TROPONIN, DEFINED THE 99TH PERCENTILE OF cTnI DISTRIBUTION IN A REFERENCE POPULATION, HAS BEEN CONFIRMED THE DECISION THRESHOLD FOR AR DIAGNOSIS. 99TH PERCENTILE = 76.2 PG/ML NOTE: HIGH-SENSITIVITY TROPONIN ASSAY IS NOT INTENDED TO BE USED IN ISOLATION BUT SHOULD BE INTERPRETED IN CONJUNCTION WITH OTHER DIAGNOSTIC AND CLINICAL INFORMATION. Performing Lab: see note ML - [facility] LB PROF 14(COMP METB) Reviewed date:04/16/2024 12:05:16 PM Interpretation: Performing Lab: Notes/Report: [facility] , Sodium 137 136-145 mmol/L Potassium 3.5 3.5-5.1 mmol/L Chloride 104 98-107 mmol/L Carbon Dioxide 24.4 21.0-32.0 mmol/L Anion Gap 12.1 Glucose 83 74-106 mg/dL Blood Urea Nitrogen 33.0 7.0-18.0 mg/dL Creatinine 1.89 0.70-1.30 mg/dL Estimated GFR ( Yaa 42 >=60 mL/min/1.73m 2 Estimated GFR (Non- Maryuri 35 >=60 mL/min/1.73m 2 BUN Creatinine Ratio 17.5 Calcium 8.7 8.5-10.1 mg/dL Bilirubin Total 0.3 0.2-1.0 mg/dL Aspartate Amino Transferase 10 15-37 U/L Alanine Aminotransferase 14 16-63 U/L Alkaline Phosphatase 58 46-116 U/L Total Protein 5.7 6.4-8.2 g/dL Albumin Level 2.1 3.4-5.0 g/dL Globulin 3.6 Albumin Globulin Ratio 0.6 Performing Lab: see note ML - [facility] LB MAGNESIUM Reviewed date:04/16/2024 12:05:16 PM Interpretation: Performing Lab: Notes/Report: [facility] , Magnesium 1.8 1.8-2.4 mg/dL Performing Lab: see note ML - [facility] LB CBC AUTO DIFF Reviewed date:04/16/2024 12:05:16 PM Interpretation: Performing Lab: Notes/Report: [facility] , White Blood Count 9.9 4.0-11.0 10 3/uL Red Blood Count 2.94 4.70-6.10 10 6/uL Hemoglobin 9.4 14.0-18.0 g/dL Hematocrit 28.2 42.0-54.0 % Mean Corpuscular Volume 95.9 80.0-94.0 fL Mean Corpuscular Hemoglobin 32.0 25.9-34.0 pg Mean Corpuscular HGB Conc 33.3 29.9-35.2 g/dL Red Cell Distribution Width 14.1 11.0-15.0 % Platelet Count 203 150-450 10 3/uL Mean Platelet Volume 8.2 9.5-13.5 fL Neutrophils Percent Auto 74.2 43.0-75.0 % Lymphocytes Percent Auto 14.0 20.5-60.0 % Monocytes Percent Auto 9.7 1.7-12.0 % Eosinophils Percent Auto 1.4 0.9-7.0 % Basophils Percent Auto 0.2 0.2-2.0 % Immature Granulocytes Pct Auto 0.5 0.0-0.5 % Neutrophils Absolute Auto 7.3 1.4-6.5 10 3/uL Lymphocytes Absolute Auto 1.4 1.2-3.8 10 3/uL Monocytes Absolute Auto 1.0 0.3-0.8 10 3/uL Eosinophils Absolute Auto 0.1 0.0-0.7 10 3/uL Basophils Absolute Auto 0.0 0.0-0.1 10 3/uL Immature Granulocytes Abs Auto 0.05 0.00-0.03 10 3/uL Performing Lab: see note - [facility] LB LACTATE or LACTIC ACID Reviewed date:04/16/2024 12:05:16 PM Interpretation: Performing Lab: Notes/Report: [facility] , Lactate/Lactic Acid 0.9 0.4-2.0 mmol/L Performing Lab: see note - [facility] LB ECG 12 lead Reviewed date:04/17/2024 08:10:35 PM Interpretation: Performing Lab: Notes/Report: Source Facility: [place] [address] Electrocardiograph Report Signed Patient: LEIGHTON ARCINIEGA MR#: [id number] : 1945 Acct:[id number] Age/Sex: 78 / M ADM Date: 04/15/24 Loc: MS - Attending Dr: Jayy Dutta M.D. Ordering Physician: Dacia Rene Date of Service: 04/15/24 Procedure(s): ECG 12 lead Accession Number(s): [id number] cc: [facility] Test Date: 2024-04-15 Pat Name: LEIGHTON ARCINIEGA Department: Room: 203 Gender: Male Plastic Design Applier: : 1945 Requested By: JAYY DUTTA Order Number: [id number] Reading MD: JAYY DUTTA Measurements Intervals [place] Rate: 102 P: -29763 SC: -14120 QRS: -80 QRSD: 182 T: 96 QT: 438 QTc: 497 Interpretive Statements electronic ventricular pacemaker Electronically Signed On 04-17-2024 9:24:08 EST by JAYY DUTTA Dictated By: Jayy Dutta M.D. Signed By: 04/17/24923 DD/ 57 TD/TT: Contact Centre Supervisor: [place] [address] Electrocardiograph Report Signed Patient: KULDIP ARCINIEGA MR#: [id number] : 1945 Acct:[id number] Age/Sex: 78 / M ADM Date: 04/15/24 Loc: MS 203- Attending Dr: Nova Dutta M.D. Ordering Physician: Dacia Rene Date of Service: 04/15/24 Procedure(s): ECG 12 lead Accession Number(s): [id number] cc: [facility] Test Date: 2024-04-15 Pat Name: LEIGHTON CHAVIRA ARDS Department: 59 Room: [facility] [place] Gender: Male Plastic Design Applier: : 1945 Requ ested By: JAYY DUTTA Order Number: [id number] Reading MD: JAYY DUTTA Measurements Intervals [place] Rate: 102 P: -86741 SC: -61689 QRS: -80 QRSD: 182 T: 96 QT: 438 QTc: 497 Interpretive Statements electronic ventricul ar pacemaker Electronically Katalina d On 04-17-2024 9:24:08 EST by JAYY DUTTA Dictated By: Grover Dutta M.D. Signed By: 04/17/24923 DD/ 57 TD/TT: Contact Centre Supervisor: Epithelial Cells Reviewed date:04/19/2024 08:45:34 PM Interpretation: Performing Lab: Notes/Report: [facility] , Epithelial Cells See Below For Report Epithelial Cells Few Performing Lab: see note LC - [facility] LB White Blood Cells Reviewed date:04/19/2024 08:45:34 PM Interpretation: Performing Lab: Notes/Report: [facility] , White Blood Cells See Below For Report White Blood Cells White Blood Cells Moderate White Blood Cells Performing Lab: see note LC - [facility] LB Manual Differential Reviewed date:04/06/2024 12:42:54 PM Interpretation: Performing Lab: Notes/Report: [facility] , Segmented Neutrophils % Manual 96.0 43.0-75.0 Lymphocytes Percent Manual 1.0 20.5-60.0 % Monocytes Percent Manual 3.0 1.7-12.0 % Eosinophils Percent Manual 0.0 0.9-7.0 % Basophils Percent Manual 0.0 0.2-2.0 % Segmented Neut Absolute Manual 10.56 1.4-6.5 10 3/uL Lymphocytes Absolute Manual 0.11 1.20-3.80 10 3/uL Monocytes Absolute Manual 0.33 0.30-0.80 10 3/uL Eosinophils Absolute Manual 0.00 0.00-0.70 10 3/uL Basophils Abs Manual 0.00 0.00-0.10 1 0 3/uL Performing Lab: see note ML - [facility] LB PROF 14(COMP METB) Reviewed date:04/06/2024 12:42:54 PM Interpretation: Performing Lab: Notes/Report: [facility] , Sodium 137 136-145 mmol/L Potassium 4.1 3.5-5.1 mmol/L Chloride 103 98-107 mmol/L Carbon Dioxide 23.5 21.0-32.0 mmol/L Anion Gap 14.6 Glucose 233 74-106 mg/dL Blood Urea Nitrogen 38.0 7.0-18.0 mg/dL Creatinine 1.87 0.70-1.30 mg/dL Estimated GFR ( Yaa 43 >=60 mL/min/1.73m 2 Estimated GFR (Non- Maryuri 35 >=60 mL/min/1.73m 2 BUN Creatinine Ratio 20.3 Calcium 8.9 8.5-10.1 mg/dL Bilirubin Total 0.5 0.2-1.0 mg/dL Aspartate Amino Transferase 15 15-37 U/L Alanine Aminotransferase 18 16-63 U/L Alkaline Phosphatase 71 46-116 U/L Total Protein 6.1 6.4-8.2 g/dL Albumin Level 2.6 3.4-5.0 g/dL Globulin 3.5 Albumin Globulin Ratio 0.7 Performing Lab: see note ML - [facility] LB MAGNESIUM Reviewed date:04/06/2024 12:42:54 PM Interpretation: Performing Lab: Notes/Report: [facility] , Magnesium 1.5 1.8-2.4 mg/dL Performing Lab: see note - [facility] CBC AUTO DIFF Reviewed date:04/06/2024 12:42:54 PM Interpretation: Performing Lab: Notes/Report: [facility] , White Blood Count 11.0 4.0-11.0 10 3/uL Red Blood Count 3.44 4.70-6.10 10 6/uL Hemoglobin 11.2 14.0-18.0 g/dL Hematocrit 33.3 42.0-54.0 % Mean Corpuscular Volume 96.8 80.0-94.0 fL Mean Corpuscular Hemoglobin 32.6 25.9-34.0 pg Mean Corpuscular HGB Conc 33.6 29.9-35.2 g/dL Red Cell Distribution Width 13.9 11.0-15.0 % Platelet Count 224 150-450 10 3/uL Mean Platelet Volume 8.4 9.5-13.5 fL Performing Lab: see note - [facility] LB BNP Reviewed date:04/06/2024 12:42:54 PM Interpretation: Performing Lab: Notes/Report: [facility] , NT Pro B Type Natriuretic Pept 57463.0 <=1800.0 pg/mL RESULTS CALLED TO ALBERTA STEINBERG RN at 0622 Performing Lab: see note - [facility] LB XR chest 1V Reviewed date:04/06/2024 12:42:54 PM Interpretation: Performing Lab: Notes/Report: Source Facility: [place] [address] [place] [address] XRay Report Signed Patient: LEIGHTON ARCINIEGA MR#: [id number] : 1945 Acct:[id number] Age/Sex: 78 / M ADM Date: 04/05/24 Loc: ER Attending Dr: Ordering Physician: Vini Celis Date of Service: 04/05/24 Procedure(s): XR chest 1V Accession Number(s): [id number] cc: Jayy Dutta M.D.; Vini Celis [place] [address] Patient Name: LEIGHTON ARCINIEGA MRN: [id number] date: 1945 Sex: M Assigned Patient Location: ER Current Patient Location: ED.MAIN Accession/Order Number: [id number] Exam Date: 04/05/2024 19:38 Report Date: 04/05/2024 21:07 At the request of: VINI CELIS Procedure: XR chest 1V EXAMINATION: XR chest 1V HISTORY: sob COMPARISON: XR chest 05/08/2019 FINDINGS: LUNGS: Patchy and confluent opacities within the mid and lower lung regions bilaterally. VASCULATURE: No increased pulmonary vasculature. PLEURA: No pneumothorax, effusion, or pleural thickening. CARDIAC: No cardiomegaly or cardiac silhouette abnormality. MEDIASTINUM: No visible mass or adenopathy. BONES: No fracture or visible bone lesion. OTHER: Stable cardiac pacer. XR/XR chest 1V IMPRESSION: 1. Moderate-marked bilateral pulmonary infiltrates suggestive of pneumonia.. Electronically authenticated by: JOE CID Date: 04/05/2024 21:07 Dictated By: Joe Cid M.D. Signed By: 04/05/242109 DD/ 06 TD/TT: Contact Centre Supervisor: [place] [address] XRay Report Signed Patient: KULDIP ARCINIEGA MR#: [id number] : 1945 Acct:[id number] Age/Sex: 78 / M ADM Date: 04/05/24 Loc: ER Attending Dr: Ordering Physician: Vini Celis Date of Service: 04/05/24 Procedure(s): XR chest 1V Accession Number(s): [id number] cc: Jayy Dutta M.D. ; Vini Celis [address] [address] Patient Name: LEIGHTON ARCINIEGA MRN: [id number] date: 1945 Sex: M Assigned Patient Location: ER Current Patient Loca tion: ED.MAIN Accession/Order Numb er: [id number] Exam Date: 04/05/2024 19:38 Report Date: 04/05/2024 21:07 At the request of: VINI CELIS Procedure: XR chest 1V EXAMINATION: XR chest 1V HISTORY: sob COMPARISON: XR chest 05/08/2019 FINDINGS: LUNGS: Patchy and confluent opacities within the mid and lower lung regions bilaterally. VASCULATURE: No incr eased pulmonary vasculature. PLEURA: No pneumotho rax, effusion, or pleural thickening. CARDIAC: No cardiome robi or cardiac silhouette abnormality. MEDIASTINUM: No visi ble mass or adenopathy. BONES: No fracture o r visible bone lesion. OTHER: Stable cardia c pacer. X R/XR chest 1V IMPRESSION: 1. Moderate-marked bilateral pulmonary infiltrates suggestive of pneumonia.. Electronically authenticated by: JOE CID Date: 04/05/2024 21:07 Dictated By: Joe Cid M.D. Signed By: 04/05/242109 DD/ 06 TD/TT: Contact Centre Supervisor: ECG 12 lead Reviewed date:04/09/2024 01:45:53 PM Interpretation: Performing Lab: Notes/Report: Source Facility: [place] [address] Electrocardiograph Report Signed Patient: LEIGHTON ARCINIEGA MR#: [id number] : 1945 Acct:[id number] Age/Sex: 78 / M ADM Date: 04/05/24 Loc: MS 213-[address]: Jayy Dutta M.D. 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 Signed By: 04/08/24802 DD/ 20 TD/TT: Contact Centre Supervisor: The [address] [address] Electrocardiograph Report Signed Patient: KULDIP ARCINIEGA MR#: [id number] : 1945 Acct:[id number] Age/Sex: 78 / M ADM Date: 04/05/24 Loc: [place] 213-[address]: Nova Dutta M.D. 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 Signed By: 04/08/24802 DD/ 20 TD/TT: Contact Centre Supervisor: MRSA Screening Culture Reviewed date:04/09/2024 01:45:53 PM Interpretation: Performing Lab: Notes/Report: [facility] , MRSA Screening Culture See Below For Report MRSA Screening Culture MRSA Screening Culture Negative MRSA Screening Culture MRSA Screening [facility] Scre[facility] MRSA Screening Culture [address], [place] [id number] MRSA Screening Culture MRSA Screening Culture Senior Director Of [employer]: Ld Gonzalez PhD, Phone: [phone] MRSA Screening Culture Performing Lab: see note LC - [facility] LB SEE REPORT - Title Insurance Examiner Id information not found for OBX-specific writer producer legend Troponin I High Sensitivity Reviewed date:04/06/2024 12:42:54 PM Interpretation: Performing Lab: Notes/Report: [facility] , Troponin I High Sensitivity 48.1 4.0-76.1 pg/mL CUT-OFF POINTS HAVE BEEN ESTABLISHED BASED ON THE FOURTH UNIVERSAL DEFINITION OF MYOCARDIAL INFARCTION. THE UPPER REFERENCE LIMIT (URL) OF TROPONIN, DEFINED THE 99TH PERCENTILE OF cTnI DISTRIBUTION IN A REFERENCE POPULATION, HAS BEEN CONFIRMED THE DECISION THRESHOLD FOR AR DIAGNOSIS. 99TH PERCENTILE = 76.2 PG/ML NOTE: HIGH-SENSITIVITY TROPONIN ASSAY IS NOT INTENDED TO BE USED IN ISOLATION BUT SHOULD BE INTERPRETED IN CONJUNCTION WITH OTHER DIAGNOSTIC AND CLINICAL INFORMATION. Performing Lab: see note ML - [facility] LB UA (CLEAN or CATCH) PROGRAM SUPPORT SPECIALIST or M ICRO IF IND. Reviewed date:04/06/2024 12:42:54 PM Interpretation: Performing Lab: Notes/Report: [facility] , Color Urine LT. YELLOW YELLOW Clarity Urine CLEAR CLEAR Specific [place] Urine 1.010 1.005-1.025 pH Urine 6.0 5.0-9.0 Protein Urine 100 NEG/TRACE mg/dL Glucose Urine UA NEGATIVE NEGATIVE mg/dL Bilirubin Urine NEGATIVE NEGATIVE Ketones Urine NEGATIVE NEGATIVE mg/dL Blood Urine NEGATIVE NEGATIVE Nitrite Urine NEGATIVE NEGATIVE Urobilinogen Urine 0.2 0.2-1.0 EU/dL Leukocyte Esterase Urine MODERATE NEGATIVE Urine Microscopic Indicated YES Performing Lab: see note ML - [facility] LB PROF CHEM 8 (BAS METB) Reviewed date:04/06/2024 12:42:54 PM Interpretation: Performing Lab: Notes/Report: [facility] , Sodium 135 136-145 mmol/L Potassium 4.6 3.5-5.1 mmol/L Chloride 102 98-107 mmol/L Carbon Dioxide 22.5 21.0-32.0 mmol/L Anion Gap 15.1 Glucose 98 74-106 mg/dL Blood Urea Nitrogen 34.0 7.0-18.0 mg/dL Creatinine 1.83 0.70-1.30 mg/dL Estimated GFR ( Yaa 44 >=60 mL/min/1.73m 2 Estimated GFR (Non- Maryuri 36 >=60 mL/min/1.73m 2 BUN Creatinine Ratio 18.6 Calcium 9.4 8.5-10.1 mg/dL Performing Lab: see note ML - [facility] LB LACTATE or LACTIC ACID Reviewed date:04/06/2024 12:42:54 PM Interpretation: Performing Lab: Notes/Report: [facility] , Lactate/Lactic Acid 1.5 0.4-2.0 mmol/L Performing Lab: see note ML - [facility] LB INFLUENZA A AND B AG Reviewed date:04/06/2024 12:42:54 PM Interpretation: Performing Lab: Notes/Report: [facility] , Influenza Virus A Antigen Negative Negative for Flu A protein antigen. Infection due to Flu A cannot be ruled out. Flu A antigen in the sample may be below the detection limit of the test. Influenza Virus B Antigen Negative Negative for Flu B protein antigen. Infection due to Flu B cannot be ruled out. Flu B antigen in the sample may be below the detection limit of the test. Performing Lab: see note ML - [facility] LB CBC AUTO DIFF Reviewed date:04/06/2024 12:42:54 PM Interpretation: Performing Lab: Notes/Report: [facility] , White Blood Count 16.2 4.0-11.0 10 3/uL Red Blood Count 3.89 4.70-6.10 10 6/uL Hemoglobin 12.5 14.0-18.0 g/dL Hematocrit 37.9 42.0-54.0 % Mean Corpuscular Volume 97.4 80.0-94.0 fL Mean Corpuscular Hemoglobin 32.1 25.9-34.0 pg Mean Corpuscular HGB Conc 33.0 29.9-35.2 g/dL Red Cell Distribution Width 14.1 11.0-15.0 % Platelet Count 282 150-450 10 3/uL Mean Platelet Volume 8.5 9.5-13.5 fL Neutrophils Percent Auto 82.9 43.0-75.0 % Lymphocytes Percent Auto 7.0 20.5-60.0 % Monocytes Percent Auto 8.6 1.7-12.0 % Eosinophils Percent Auto 0.8 0.9-7.0 % Basophils Percent Auto 0.2 0.2-2.0 % Immature Granulocytes Pct Auto 0.5 0.0-0.5 % Neutrophils Absolute Auto 13.5 1.4-6.5 10 3/uL Lymphocytes Absolute Auto 1.1 1.2-3.8 10 3/uL Monocytes Absolute Auto 1.4 0.3-0.8 10 3/uL Eosinophils Absolute Auto 0.1 0.0-0.7 10 3/uL Basophils Absolute Auto 0.0 0.0-0.1 10 3/uL Immature Granulocytes Abs Auto 0.08 0.00-0.03 10 3/uL Performing Lab: see note - [facility] BNP Reviewed date:04/06/2024 12:42:54 PM Interpretation: Performing Lab: Notes/Report: [facility] , NT Pro B Type Natriuretic Pept 88480.0 <=1800.0 pg/mL RESULTS CALLED TO DR. VINI CELIS at 212 Performing Lab: see note - [facility] LB PROF CHEM 8 (BAS METB) Reviewed date:03/30/2024 12:50:25 PM Interpretation: Performing Lab: Notes/Report: [facility] , Sodium 140 136-145 mmol/L Potassium 4.2 3.5-5.1 mmol/L Chloride 106 98-107 mmol/L Carbon Dioxide 25.2 21.0-32.0 mmol/L Anion Gap 13.0 Glucose 80 74-106 mg/dL Blood Urea Nitrogen 27.0 7.0-18.0 mg/dL Creatinine 1.60 0.70-1.30 mg/dL Estimated GFR ( Yaa 51 >=60 mL/min/1.73m 2 Estimated GFR (Non- Maryuri 42 >=60 mL/min/1.73m 2 BUN Creatinine Ratio 16.9 Calcium 9.1 8.5-10.1 mg/dL Performing Lab: see note - [facility] CBC AUTO DIFF Reviewed date:03/30/2024 12:50:25 PM Interpretation: Performing Lab: Notes/Report: [facility] , White Blood Count 8.9 4.0-11.0 10 3/uL Red Blood Count 3.59 4.70-6.10 10 6/uL Hemoglobin 11.6 14.0-18.0 g/dL Hematocrit 35.1 42.0-54.0 % Mean Corpuscular Volume 97.8 80.0-94.0 fL Mean Corpuscular Hemoglobin 32.3 25.9-34.0 pg Mean Corpuscular HGB Conc 33.0 29.9-35.2 g/dL Red Cell Distribution Width 13.9 11.0-15.0 % Platelet Count 237 150-450 10 3/uL Mean Platelet Volume 8.8 9.5-13.5 fL Neutrophils Percent Auto 58.4 43.0-75.0 % Lymphocytes Percent Auto 25.9 20.5-60.0 % Monocytes Percent Auto 10.5 1.7-12.0 % Eosinophils Percent Auto 4.3 0.9-7.0 % Basophils Percent Auto 0.7 0.2-2.0 % Immature Granulocytes Pct Auto 0.2 0.0-0.5 % Neutrophils Absolute Auto 5.2 1.4-6.5 10 3/uL Lymphocytes Absolute Auto 2.3 1.2-3.8 10 3/uL Monocytes Absolute Auto 0.9 0.3-0.8 10 3/uL Eosinophils Absolute Auto 0.4 0.0-0.7 10 3/uL Basophils Absolute Auto 0.1 0.0-0.1 10 3/uL Immature Granulocytes Abs Auto 0.02 0.00-0.03 10 3/uL Performing Lab: see note - [facility] LB PROF 14(COMP METB) Reviewed date:03/29/2024 07:01:58 PM Interpretation: Performing Lab: Notes/Report: [facility] , Sodium 143 136-145 mmol/L Potassium 4.1 3.5-5.1 mmol/L Chloride 107 98-107 mmol/L Carbon Dioxide 25.2 21.0-32.0 mmol/L Anion Gap 14.9 Glucose 165 74-106 mg/dL Blood Urea Nitrogen 36.0 7.0-18.0 mg/dL Creatinine 2.08 0.70-1.30 mg/dL Estimated GFR ( Yaa 38 >=60 mL/min/1.73m 2 Estimated GFR (Non- Maryuri 31 >=60 mL/min/1.73m 2 BUN Creatinine Ratio 17.3 Calcium 8.9 8.5-10.1 mg/dL Bilirubin Total 0.2 0.2-1.0 mg/dL Aspartate Amino Transferase 19 15-37 U/L Alanine Aminotransferase 26 16-63 U/L Alkaline Phosphatase 60 46-116 U/L Total Protein 6.0 6.4-8.2 g/dL Albumin Level 2.9 3.4-5.0 g/dL Globulin 3.1 Albumin Globulin Ratio 0.9 Performing Lab: see note ML - [facility] LB CBC AUTO DIFF Reviewed date:03/29/2024 07:01:58 PM Interpretation: Performing Lab: Notes/Report: [facility] , White Blood Count 8.2 4.0-11.0 10 3/uL Red Blood Count 3.58 4.70-6.10 10 6/uL Hemoglobin 11.6 14.0-18.0 g/dL Hematocrit 35.0 42.0-54.0 % Mean Corpuscular Volume 97.8 80.0-94.0 fL Mean Corpuscular Hemoglobin 32.4 25.9-34.0 pg Mean Corpuscular HGB Conc 33.1 29.9-35.2 g/dL Red Cell Distribution Width 13.8 11.0-15.0 % Platelet Count 235 150-450 10 3/uL Mean Platelet Volume 8.6 9.5-13.5 fL Neutrophils Percent Auto 60.5 43.0-75.0 % Lymphocytes Percent Auto 25.6 20.5-60.0 % Monocytes Percent Auto 9.9 1.7-12.0 % Eosinophils Percent Auto 3.3 0.9-7.0 % Basophils Percent Auto 0.5 0.2-2.0 % Immature Granulocytes Pct Auto 0.2 0.0-0.5 % Neutrophils Absolute Auto 5.0 1.4-6.5 10 3/uL Lymphocytes Absolute Auto 2.1 1.2-3.8 10 3/uL Monocytes Absolute Auto 0.8 0.3-0.8 10 3/uL Eosinophils Absolute Auto 0.3 0.0-0.7 10 3/uL Basophils Absolute Auto 0.0 0.0-0.1 10 3/uL Immature Granulocytes Abs Auto 0.02 0.00-0.03 10 3/uL Performing Lab: see note ML - [facility] LB Box Test Reviewed date:04/02/2024 10:01:32 AM Interpretation: Performing Lab: Notes/Report: URINE CULTURE [facility] , BOX Test Sent Out URINE CULTURE BOX Test Reference Lab [facility] BOX Test Date Sent 03/28/24 BOX Test Result SEE SCANNED REPORT Performing Lab: see note - [facility] LB Blood Culture 2 Reviewed date:04/03/2024 07:59:21 PM Interpretation: Performing Lab: Notes/Report: [facility] , Blood Culture 2 See Below For Report Blood Culture 2 NG5D NO GROWTH AT 5 DAYS. Performing Lab: see note ML - [facility] LB Blood Culture 1 Reviewed date:04/03/2024 07:59:21 PM Interpretation: Performing Lab: Notes/Report: [facility] , Blood Culture 1 See Below For Report Blood Culture 1 NG5D NO GROWTH AT 5 DAYS. Performing Lab: see note ML - [facility] LB URINE MICROSCOPIC ONLY Reviewed date:03/29/2024 07:01:58 PM Interpretation: Performing Lab: Notes/Report: [facility] , WBC Urine 75-100 NONE SEEN #/HPF RBC Urine 2-5 0-2 #/HPF Bacteria Urine NONE SEEN NONE SEEN #/HPF Mucus Urine NONE SEEN NONE SEEN Squamous Epithelial Cell Urine NONE SEEN NONE/RARE #/LPF Crystals Seen? None Seen None Seen #/HPF Cast Seen? NONE SEEN NONE SEEN #/LPF Yeast Urine SEEN NONE SEEN Urine Culture Indicated YES Performing Lab: see note ML - [facility] LB UA (CLEAN or CATCH) PROGRAM SUPPORT SPECIALIST or M ICRO IF IND. Reviewed date:03/29/2024 07:01:58 PM Interpretation: Performing Lab: Notes/Report: [facility] , Color Urine LT. YELLOW YELLOW Clarity Urine CLEAR CLEAR Specific [place] Urine 1.015 1.005-1.025 pH Urine 6.0 5.0-9.0 Protein Urine 100 NEG/TRACE mg/dL Glucose Urine UA >=1000 NEGATIVE mg/dL Bilirubin Urine NEGATIVE NEGATIVE Ketones Urine NEGATIVE NEGATIVE mg/dL Blood Urine SMALL NEGATIVE Nitrite Urine NEGATIVE NEGATIVE Urobilinogen Urine 0.2 0.2-1.0 EU/dL Leukocyte Esterase Urine MODERATE NEGATIVE Urine Microscopic Indicated YES Performing Lab: see note ML - [facility] LB LACTATE or LACTIC ACID Reviewed date:03/29/2024 07:01:58 PM Interpretation: Performing Lab: Notes/Report: [facility] , Lactate/Lactic Acid 0.9 0.4-2.0 mmol/L Performing Lab: see note - [facility] LB CBC AUTO DIFF Reviewed date:03/29/2024 07:01:58 PM Interpretation: Performing Lab: Notes/Report: [facility] , White Blood Count 6.6 4.0-11.0 10 3/uL Red Blood Count 3.80 4.70-6.10 10 6/uL Hemoglobin 12.1 14.0-18.0 g/dL Hematocrit 37.1 42.0-54.0 % Mean Corpuscular Volume 97.6 80.0-94.0 fL Mean Corpuscular Hemoglobin 31.8 25.9-34.0 pg Mean Corpuscular HGB Conc 32.6 29.9-35.2 g/dL Red Cell Distribution Width 13.9 11.0-15.0 % Platelet Count 255 150-450 10 3/uL Mean Platelet Volume 8.6 9.5-13.5 fL Neutrophils Percent Auto 54.7 43.0-75.0 % Lymphocytes Percent Auto 28.4 20.5-60.0 % Monocytes Percent Auto 13.1 1.7-12.0 % Eosinophils Percent Auto 3.0 0.9-7.0 % Basophils Percent Auto 0.3 0.2-2.0 % Immature Granulocytes Pct Auto 0.5 0.0-0.5 % Neutrophils Absolute Auto 3.6 1.4-6.5 10 3/uL Lymphocytes Absolute Auto 1.9 1.2-3.8 10 3/uL Monocytes Absolute Auto 0.9 0.3-0.8 10 3/uL Eosinophils Absolute Auto 0.2 0.0-0.7 10 3/uL Basophils Absolute Auto 0.0 0.0-0.1 10 3/uL Immature Granulocytes Abs Auto 0.03 0.00-0.03 10 3/uL Performing Lab: see note ML - [facility] LB Urine Culture, Routine Reviewed date:03/13/2024 07:46:15 PM Interpretation: Performing Lab: Notes/Report: [facility] , Urine Culture, Routine See Below For Report Urine Culture, Routine Urine Culture, Routine Mixed urogenital icndy Urine Culture, Routine Urine Culture, Routine 25,000-50,000 col bryon forming units per mL Urine Culture, Routine Urine Culture, Routine Performed at: - [facility] [place] Urine Culture, Routine Urine Culture, Routine [address], [place] [id number] Urine Culture, Routine Urine Culture, Routine Senior Director Of [employer]: Ld Gonzalez PhD, Phone: [phone] Urine Culture, Routine Performing Lab: see note LC - [facility] LB SEE REPORT - Title Insurance Examiner Id information not found for OBX-specific writer producer legend UA RANDOM W or MICROSCOPIC Reviewed date:03/12/2024 02:11:31 PM Interpretation: Performing Lab: Notes/Report: [facility] , Color Urine YELLOW YELLOW Clarity Urine TURBID CLEAR Specific [place] Urine 1.015 1.005-1.025 pH Urine 6.0 5.0-9.0 Protein Urine >=300 NEG/TRACE mg/dL Glucose Urine UA >=1000 NEGATIVE mg/dL Bilirubin Urine NEGATIVE NEGATIVE Ketones Urine NEGATIVE NEGATIVE mg/dL Blood Urine SMALL NEGATIVE Nitrite Urine NEGATIVE NEGATIVE Urobilinogen Urine 0.2 0.2-1.0 EU/dL Leukocyte Esterase Urine MODERATE NEGATIVE WBC Urine >100 NONE SEEN #/HPF RBC Urine NONE SEEN 0-2 #/HPF Bacteria Urine LARGE NONE SEEN #/HPF Mucus Urine NONE SEEN NONE SEEN Squamous Epithelial Cell Urine NONE SEEN NONE/RARE #/LPF Crystals Seen? None Seen None Seen #/HPF Cast Seen? NONE SEEN NONE SEEN #/LPF Urine Culture Indicated YES Performing Lab: see note ML - [facility] LB PROF CHEM 8 (BAS METB) Reviewed date:03/12/2024 02:11:31 PM Interpretation: Performing Lab: Notes/Report: [facility] , Sodium 138 136-145 mmol/L Potassium 4.1 3.5-5.1 mmol/L Chloride 107 98-107 mmol/L Carbon Dioxide 27.3 21.0-32.0 mmol/L Anion Gap 7.8 Glucose 232 74-106 mg/dL Blood Urea Nitrogen 32.0 7.0-18.0 mg/dL Creatinine 2.32 0.70-1.30 mg/dL Estimated GFR ( Yaa 33 >=60 mL/min/1.73m 2 Estimated GFR (Non- Maryuri 27 >=60 mL/min/1.73m 2 BUN Creatinine Ratio 13.8 Calcium 9.6 8.5-10.1 mg/dL Performing Lab: see note ML - [facility] LB CBC AUTO DIFF Reviewed date:03/12/2024 02:11:31 PM Interpretation: Performing Lab: Notes/Report: [facility] , White Blood Count 12.2 4.0-11.0 10 3/uL Red Blood Count 3.91 4.70-6.10 10 6/uL Hemoglobin 12.6 14.0-18.0 g/dL Hematocrit 38.2 42.0-54.0 % Mean Corpuscular Volume 97.7 80.0-94.0 fL Mean Corpuscular Hemoglobin 32.2 25.9-34.0 pg Mean Corpuscular HGB Conc 33.0 29.9-35.2 g/dL Red Cell Distribution Width 13.9 11.0-15.0 % Platelet Count 248 150-450 10 3/uL Mean Platelet Volume 8.8 9.5-13.5 fL Neutrophils Percent Auto 70.7 43.0-75.0 % Lymphocytes Percent Auto 16.7 20.5-60.0 % Monocytes Percent Auto 8.5 1.7-12.0 % Eosinophils Percent Auto 3.5 0.9-7.0 % Basophils Percent Auto 0.4 0.2-2.0 % Immature Granulocytes Pct Auto 0.2 0.0-0.5 % Neutrophils Absolute Auto 8.6 1.4-6.5 10 3/uL Lymphocytes Absolute Auto 2.0 1.2-3.8 10 3/uL Monocytes Absolute Auto 1.0 0.3-0.8 10 3/uL Eosinophils Absolute Auto 0.4 0.0-0.7 10 3/uL Basophils Absolute Auto 0.1 0.0-0.1 10 3/uL Immature Granulocytes Abs Auto 0.03 0.00-0.03 10 3/uL Performing Lab: see note ML - [facility] LB Urine Culture, Routine Reviewed date:02/28/2024 10:14:11 AM Interpretation: Performing Lab: Notes/Report: [facility] , Urine Culture, Routine See Below For Report Urine Culture, Routine Urine Culture, Routine Mixed urogenital cindy Urine Culture, Routine Urine Culture, Routine Less than 10,000 colonies/mL Urine Culture, Routine Urine Culture, Routine Performed at: - [facility] [place] Urine Culture, Routine Urine Culture, Routine [address], [place] [id number] Urine Culture, Routine Urine Culture, Routine Senior Director Of [employer]: Ld Gonzalez PhD, Phone: [phone] Urine Culture, Routine Performing Lab: see note LC - [facility] LB SEE REPORT - Title Insurance Examiner Id information not found for OBX-specific writer producer legend CA echo limited Reviewed date:05/08/2024 01:01:52 PM Interpretation: Performing Lab: Notes/Report: Source Facility: [facility], [place] [address] [address] Cardiology Report Signed Patient: LEIGHTON ARCINIEGA MR#: [id number] : 1945 Acct:[id number] Age/Sex: 78 / M ADM Date: 05/07/24 Loc: ICU 274-[address]: Jayy Dutta M.D. Ordering Physician: Jayy Dutta M.D. Date of Service: 05/08/24 Procedure(s): CA echo limited Accession Number(s): [id number] cc: Jayy Dutta M.D. Patient Name: LEIGHTON ARCINIEGA MR#: [id number] : 1945 Exam Date: 05/08/2024 Ordering Doctor: DR Jayy Dutta . ECHOCARDIOGRAM REPORT PROCEDURE: CA ECHO LIMITED INDICATIONS: chf COMPARISON: None. DESCRIPTION: Limited ECHOCARDIOGRAM Real-time transthoracic echocardiography with 2D and M-mode performed. QUALITY: Technical quality was good. LEFT VENTRICLE: The left ventricle is mildly dilated. Moderate left ventricular hypertrophy. LV EF: Global left ventricular systolic function is severely reduced; visually estimated ejection fraction is 15-20%. Diffuse global hypokinesis. Abnormal septal motion; may be related to underlying paced rhythm. LEFT ATRIUM: Severe dilatation. RIGHT ATRIUM: Moderate dilatation. Pacer wire present. RIGHT VENTRICLE: Mild dilatation. Systolic function appears reduced. Pacer wire present. TRICUSPID VALVE: Normal mobility and thickness. MITRAL VALVE: Normal mobility and thickness. There is no mitral annular calcification. AORTIC VALVE: Normal trileaflet appearance. No visible sclerosis. Normal leaflet mobility. AORTIC ROOT: Normal diameter and appearance. PULMONIC VALVE: Normal thickness and mobility. PERICARDIUM: No evidence of pericardial effusion. IVC: Severe dilatation. Measuring 3.3cm with no collapse. CONCLUSION: 1. Global left ventricular systolic function is severely reduced; visually estimated ejection fraction is 15 to 20% 2. The left ventricle is mildly dilated 3. Moderate left ventricular hypertrophy 4. Biatrial dilatation 5. The right ventricle is mildly dilated with reduced systolic function A limited echocardiogram was performed Adult Echocardiography Procedure Report Left Ventricle LVEDD (3.7 - 5.6 cm): 5.77 cm LVESD (2.2 - 4.0 cm): 4.74 cm LVIVS thickness (0.6 - 1.2 cm): 1.29 cm LVPW thickness (0.5 - 1.0 cm): 1.40 cm LVOT Diameter 2.05 cm Left Atrium LA Volume Index (2D A2C): 56.96 ml/m2 Left Atrium Systolic Dimension: 4.53 cm Mitral Valve Right Ventricle RV Internal Diastolic Dimension: 4.73 cm Aorta AO Root Diam: 3.37 cm Aortic Valve Tricuspid Valve Pulmonic Valve Right Atrium Right Atrium Systolic Pressure: 100.67 ml, 100.67 ml Dictated by: Veronica Kim M.D. on 05/08/2024 at 12:01 Approved by: Veronica Kim M.D. on 05/08/2024 at 12:04 Dictated By: Veronica Kim M.D. Signed By: 05/08/24 120 DD/ 04 TD/TT: Contact Centre Supervisor: [place] [address] Cardiology Report Signed Patient: KULDIP ARCINIEGA MR#: [id number] : 1945 Acct:[id number] Age/Sex: 78 / M ADM Date: 05/07/24 Loc: ICU 274-[address]: Nova Dutta M.D. Ordering Physician: Jayy Dutta M.D. Date of Service: 05/08/24 Procedure(s): CA ech o limited Accession Number(s): [id number] cc: Jayy Dutta M.D. Patient Name: LEIGHTON ARCINIEGA MR#: [id number] : 1945 Exam Date: 05/08/2024 Ordering Doctor: DR Jayy Dutta . ECHOCARDIOGRAM REPORT PROCEDURE: CA ECHO LIMITED INDICATIONS: chf COMPARISON: None. DESCRIPTION: Limited ECHOCARDIOGRAM Real-time transthoracic echocardiography wit h 2D and M-mode performed. QUALITY: Technical quality was good. LEFT VENTRICLE: The left ventricle is mildly dilated. Moderate left ventricular hypertrophy. LV EF: Global left ventricular systolic function is severely reduced; visually estimated ejection fraction is 15-20%. Diffuse global hypokinesis. Abnormal septal keesha on; may be related to underlying paced rhythm. LEFT ATRIUM: Severe dilatation. RIGHT ATRIUM: Modera te dilatation. Pacer wire present. RIGHT VENTRICLE: Mil d dilatation. Systolic function appears reduced. Pacer wire present. TRICUSPID VALVE: Nor mal mobility and thickness. MITRAL VALVE: Normal mobility and thickness. There is no mitral annular calcification. AORTIC VALVE: Jeanine l trileaflet appearance. No visible sclerosis. Normal leaflet mobility. AORTIC ROOT: Normal diameter and appearance. PULMONIC VALVE: Norm al thickness and mobility. PERICARDIUM: No evid ence of pericardial effusion. IVC: Severe dilatati on. Measuring 3.3cm with no collapse. CONCLUSION: 1. Global left ventricular systolic function is severely reduced; visually estimated ejection fraction is 15 to 20% 2. The left ventricl e is mildly dilated 3. Moderate left ventricular hypertrophy 4. Biatrial dilatation 5. The right ventric le is mildly dilated with reduced systolic function A limited echocardio gram was performed Adult Echocardiograp hy Procedure Report Left Ventricle LVEDD (3.7 - 5.6 cm) : 5.77 cm LVESD (2.2 - 4.0 cm) : 4.74 cm LVIVS thickness (0.6 - 1.2 cm): 1.29 cm LVPW thickness (0.5 - 1.0 cm): 1.40 cm LVOT Diameter 2.05 cm Left Atrium LA Volume Index (2D A2C): 56.96 ml/m2 Left Atrium Systolic Dimension: 4.53 cm Mitral Valve Right Ventricle RV Internal Diastoli c Dimension: 4.73 cm Aorta AO Root Diam: 3.37 cm Aortic Valve Tricuspid Valve Pulmonic Valve Right Atrium Right Atrium Systoli c Pressure: 100.67 ml, 100.67 ml Dictated by: Veronica Kim M.D. on 05/08/2024 at 12:01 Approved by: Veronica Kim M.D. on 05/08/2024 at 12:04 Dictated By: Veronica Kim M.D. Signed By: 05/08/24 120 DD/ 120 TD/TT: Contact Centre Supervisor: BNP Reviewed date:05/19/2024 01:06:39 PM Interpretation: Performing Lab: Notes/Report: [facility] , NT Pro B Type Natriuretic Pept >51000.0 <=1800.0 pg/mL RESULTS CALLED TO JUANITA Stephen RN @BY Azael L Milavec, [facility] at 2256 Performing Lab: see note ML - [facility] LB Venous Blood Gas Reviewed date:05/08/2024 09:24:24 AM Interpretation: Performing Lab: Notes/Report: [facility] , pH VBG 7.448 7.330-7.430 PCO2 VBG 30.1 40.0-52.0 mmHg Performing Lab: see note ML - [facility] LB Urine Culture - [facility] Reviewed date:05/21/2024 12:36:43 PM Interpretation: Performing Lab: Notes/Report: [facility] , Urine Culture - [facility] See Below For Report Urine Culture - [facility] No Growth 2 Days Urine Culture - [facility] Urine Culture - [facility] No Growth 2 Days Urine [facility] Testing performed [facility] [place] Urine Culture - [facility] No Growth 2 Days Urine Culture - [facility] [address] [place] [address] Urine Culture - [facility] No Growth 2 Days Performing Lab: see note ML - [facility] LB ECG 12 lead Reviewed date:05/19/2024 01:06:39 PM Interpretation: Performing Lab: Notes/Report: Source Facility: [facility]-[address] [place] [address] Electrocardiograph Report Signed Patient: LEIGHTON ARCINIEGA MR#: [id number] : 1945 Acct:[id number] Age/Sex: 78 / M ADM Date: 05/18/24 Loc: MS 231-[address]: Jayy Dutta M.D. Ordering Physician: Dacia Rene Date of Service: 05/18/24 Procedure(s): ECG 12 lead Accession Number(s): [id number] cc: [facility] Test Date: 2024-05-18 Pat Name: LEIGHTON ARCINIEGA Department: Room: - Gender: Male Plastic Design Applier: : 1945 Requested By: JAYY DUTTA Order Number: [id number] Reading MD: JAYY DUTTA Measurements Intervals [place] Rate: 105 P: -26126 SC: -54398 QRS: -75 QRSD: 186 T: 103 QT: 440 QTc: 501 Interpretive Statements Electronic ventricular pacemaker 9120 atypical ECG Compared to ECG 05/07/2024 17:06:32 No significant changes Electronically Signed On 05-19-2024 7:18:52 EST by JAYY DUTTA Dictated By: Jayy Dutta M.D. Signed By: 05/19/24718 DD/ 15 TD/TT: Contact Centre Supervisor: [place] [address] Electrocardiograph Report Signed Patient: KULDIP ARCINIEGA MR#: [id number] : 1945 Acct:[id number] Age/Sex: 78 / M ADM Date: 05/18/24 Loc: MS 231-[address]: Nova Dutta M.D. Ordering Physician: Dacia Rene Date of Service: 05/18/24 Procedure(s): ECG 12 lead Accession Number(s): [id number] cc: [facility] Test Date: 2024-05-18 Pat Name: LEIGHTON CHAVIRA ARDS Department: 59 Room: - Gender: Male Plastic Design Applier: : 1945 Requ ested By: JAYY DUTTA Order Number: [id number] Reading MD: JAYY DUTTA Measurements Intervals [place] Rate: 105 P: -72073 SC: -22644 QRS: -75 QRSD: 186 T: 103 QT: 440 QTc: 501 Interpretive Statements [id number] Electronic ventricular pacemaker 9120 atypical ECG Compared to ECG 05/07/2024 17:06:32 No significant changes Electronically Katalina d On 05-19-2024 7:18:52 EST by JAYY DUTTA Dictated By: Grover Dutta M.D. Signed By: 05/19/24718 DD/ 15 TD/TT: Contact Centre Supervisor: BLOOD GASES BTY Reviewed date:05/21/2024 12:36:43 PM Interpretation: Performing Lab: Notes/Report: [facility] , pH ABG 7.512 7.350-7.450 RESULTS CALLED TO MARTINA WRIGHT RN at 1344 ABG PCO2 27.8 35.0-45.0 mmHg PO2 ABG 45.0 80.0-100.0 mmHg RESULTS CALL ED TO MARTINA WRIGHT RN at 1344 HCO3 ABG 22.3 22.0-26.0 mmol/L Base Excess ABG -0.7 -2.0-2.0 mmol/L Oxygen Saturation ABG 86.7 Rustam Test POSITIVE POSITIVE O2 Mode VAPOTHERM Liters per Minute 40 Fractionated Inspired Oxygen 50 Puncture Site RR Performing Lab: see note ML - [facility] MAGNESIUM Reviewed date:05/19/2024 01:06:39 PM Interpretation: Performing Lab: Notes/Report: [facility] , Magnesium 1.3 1.8-2.4 mg/dL Performing Lab: see note - [facility] PROF CHEM 8 (BAS METB) Reviewed date:05/19/2024 01:06:39 PM Interpretation: Performing Lab: Notes/Report: [facility] , Sodium 135 136-145 mmol/L Potassium 3.6 3.5-5.1 mmol/L Chloride 102 98-107 mmol/L Carbon Dioxide 24.5 21.0-32.0 mmol/L Anion Gap 12.1 Glucose 270 74-106 mg/dL Blood Urea Nitrogen 41.0 7.0-18.0 mg/dL Creatinine 1.71 0.70-1.30 mg/dL Estimated GFR ( Yaa 47 >=60 mL/min/1.73m 2 Estimated GFR (Non- Maryuri 39 >=60 mL/min/1.73m 2 BUN Creatinine Ratio 24.0 Calcium 8.0 8.5-10.1 mg/dL Performing Lab: see note - [facility] Troponin I High Sensitivity Reviewed date:05/21/2024 12:36:43 PM Interpretation: Performing Lab: Notes/Report: [facility] , Troponin I High Sensitivity 44.0 4.0-76.1 pg/mL CUT-OFF POINTS HAVE BEEN ESTABLISHED BASED ON THE FOURTH UNIVERSAL DEFINITION OF MYOCARDIAL INFARCTION. THE UPPER REFERENCE LIMIT (URL) OF TROPONIN, DEFINED THE 99TH PERCENTILE OF cTnI DISTRIBUTION IN A REFERENCE POPULATION, HAS BEEN CONFIRMED THE DECISION THRESHOLD FOR AR DIAGNOSIS. 99TH PERCENTILE = 76.2 PG/ML NOTE: HIGH-SENSITIVITY TROPONIN ASSAY IS NOT INTENDED TO BE USED IN ISOLATION BUT SHOULD BE INTERPRETED IN CONJUNCTION WITH OTHER DIAGNOSTIC AND CLINICAL INFORMATION. Performing Lab: see note ML - [facility] LB White Blood Cells Reviewed date:05/22/2024 09:01:00 PM Interpretation: Performing Lab: Notes/Report: [facility] , White Blood Cells See Below For Report White Blood Cells White Blood Cells Few White Blood Cells Performing Lab: see note LC - [facility] LB ECG 12 lead Reviewed date:05/21/2024 12:36:43 PM Interpretation: Performing Lab: Notes/Report: Source Facility: [place] [address] [place] [address] Electrocardiograph Report Signed Patient: LEIGHTON ARCINIEGA MR#: [id number] : 1945 Acct:[id number] Age/Sex: 78 / M ADM Date: 05/18/24 Loc: ICU 273-[address]: Jayy Dutta M.D. Ordering Physician: Jayy Dutta M.D. Date of Service: 05/19/24 Procedure(s): ECG 12 lead Accession Number(s): [id number] cc: [facility] Test Date: 2024-05-19 Pat Name: LEIGHTON ARCINIEGA Department: Room: [facility] Gender: Male Plastic Design Applier: : 1945 Requested By: JAYY DUTTA Order Number: [id number] Reading MD: JAYY DUTTA Measurements Intervals [place] Rate: 96 P: SC: QRS: -72 QRSD: 186 T: 105 QT: 434 QTc: 549 Interpretive Statements ELECTRONIC VENTRICULAR PACEMAKER ABNORMAL RHYTHM ECG Compared to ECG 05/18/2024 22:16:52 No significant changes Electronically Signed On 05-21-2024 6:09:53 EST by JAYY DUTTA Dictated By: Jayy Dutta M.D. Signed By: 05/21/24 0609 DD/ 1331 TD/TT: Contact Centre Supervisor: [place] [address] Electrocardiograph Report Signed Patient: KULDIP ARCINIEGA MR#: [id number] : 1945 Acct:[id number] Age/Sex: 78 / M ADM Date: 05/18/24 Loc: ICU 273-[address]: Nova Dutta M.D. Ordering Physician: Jayy Dutta M.D. Date of Service: 05/19/24 Procedure(s): ECG 12 lead Accession Number(s): [id number] cc: [facility] Test Date: 2024-05-19 Pat Name: LEIGHTON CHAVIRA ARDS Department: 59 Room: [facility] Gender: Male Plastic Design Applier: : 1945 Requ ested By: JAYY DUTTA Order Number: [id number] Reading MD: JAYY DUTTA Measurements Intervals [place] Rate: 96 P: SC: QRS: -72 QRSD: 186 T: 105 QT: 434 QTc: 549 Interpretive Statements ELECTRONIC VENTRICUL AR PACEMAKER ABNORMAL RHYTHM ECG Compared to ECG 05/18/2024 22:16:52 No significant changes Electronically Katalina d On 05-21-2024 6:09:53 EST by JAYY DUTTA Dictated By: Grover Dutta M.D. Signed By: 05/21/24 0609 DD/ 1331 TD/TT: Contact Centre Supervisor: Troponin I High Sensitivity Reviewed date:05/21/2024 12:36:43 PM Interpretation: Performing Lab: Notes/Report: [facility] , Troponin I High Sensitivity 71.4 4.0-76.1 pg/mL CUT-OFF POINTS HAVE BEEN ESTABLISHED BASED ON THE FOURTH UNIVERSAL DEFINITION OF MYOCARDIAL INFARCTION. THE UPPER REFERENCE LIMIT (URL) OF TROPONIN, DEFINED THE 99TH PERCENTILE OF cTnI DISTRIBUTION IN A REFERENCE POPULATION, HAS BEEN CONFIRMED THE DECISION THRESHOLD FOR AR DIAGNOSIS. 99TH PERCENTILE = 76.2 PG/ML NOTE: HIGH-SENSITIVITY TROPONIN ASSAY IS NOT INTENDED TO BE USED IN ISOLATION BUT SHOULD BE INTERPRETED IN CONJUNCTION WITH OTHER DIAGNOSTIC AND CLINICAL INFORMATION. Performing Lab: see note ML - [facility] LB CT chest wo con Reviewed date:07/08/2024 11:41:59 AM Interpretation: Performing Lab: Notes/Report: Source Facility: [facility] [place] [address] [place] [address] CT Scan Report Signed Patient: LEIGHTON ARCINIEGA MR#: [id number] : 1945 Acct:[id number] Age/Sex: 78 / M ADM Date: 07/07/24 Loc: CT Attending Dr: Jayy Dutta M.D. Ordering Physician: Jayy Dutta M.D. Date of Service: 07/07/24 Procedure(s): CT chest wo con Accession Number(s): [id number] cc: Jayy Dutta M.D. [address] [address] Patient Name: LEIGHTON ARCINIEGA MRN: [id number] date: 1945 Sex: M Assigned Patient Location: CT Current Patient Location: CT Accession/Order Number: [id number] Exam Date: 07/07/2024 15:35 Report Date: 07/07/2024 15:39 At the request of: JAYY DUTTA MD Procedure: CT chest wo con CT Chest without contrast TECHNIQUE: Axial imaging with 2-D reconstruction. The CT exam was performed using one or more the following dose reduction techniques: Automated exposure control, adjustment of the MA and/or Kv according to patient size, or use of the iterative reconstruction technique. History: Recent pneumonia. Shortness of breath COMPARISON: 05/20/2024 THYROID: Unremarkable TRACHEA AND BRONCHI: Patent ESOPHAGUS: Unremarkable. HEART: Stable cardiac device intact PERICARDIAL EFFUSION: None CORONARY ARTERY CALCIFICATION: Present MEDIASTINUM: No adenopathy. No pneumoperitoneum. No mediastinal hematoma. PULMONARY DAVID: No hilar mass or adenopathy is seen. THORACIC AORTA Unremarkable LUNG NODULE None LUNGS: Near-complete resolution of groundglass parenchymal densities. Chronic basilar fibrotic changes. PLEURAL EFFUSION: Near-complete resolution of pleural effusion PNEUMOTHORAX: No pneumothorax seen. CHEST WALL: No abnormality AXILLA:Unremarkable BONY STRUCTURES at thoracic hyperostosis UPPER ABDOMEN: Images of the upper abdomen are noncontributory. CT/CT chest wo con IMPRESSION: Near-complete resolution of groundglass parenchymal densities and pleural effusions. Basilar fibrotic changes. Impression dictated by: Benton Chakraborty M.D.07/07/2024 3:39 PM Dictation Location: [place] [address] Electronically authenticated by: [id number] Y Date: 07/07/2024 15:39 Dictated By: Benton Chakraborty D.O. Signed By: 07/07/24 1541 DD/ 1539 TD/TT: Contact Centre Supervisor: The [address] [address] [address] Scan Report Signed Patient: KULDIP ARCINIEGA MR#: [id number] : 1945 Acct:[id number] Age/Sex: 78 / M ADM Date: 07/07/24 Loc: CT Attending Dr: Nova Dutta M.D. Ordering Physician: Jayy Dutta M.D. Date of Service: 07/07/24 Procedure(s): CT evelin st wo con Accession Number(s): [id number] cc: Jayy Dutta M.D. The [place] [id number] Patient Name: LEIGHTON ARCINIEGA MRN: [id number] date: 1945 Sex: M Assigned Patient Location: CT Current Patient Loca tion: CT Accession/Order Numb er: [id number] Exam Date: 07/07/2024 15:35 Report Date: 07/07/2024 15:39 At the request of: JAYY DUTTA MD Procedure: CT chest wo con CT Chest without contrast TECHNIQUE: Axial yung ging with 2-D reconstruction. The CT exam was performed using one or more th e following dose reduction techniques: Automated exposure control, adjustment of the MA and/or Kv according to patient size, or use of the iterative reconstruction technique. History: Recent pneumonia. Shortness of breath COMPARISON: 05/20/2024 THYROID: Unremarkable TRACHEA AND BRONCHI: Patent ESOPHAGUS: Unremarkable. HEART: Stable cardia c device intact PERICARDIAL EFFUSION : None CORONARY ARTERY CALCIFICATION: Present MEDIASTINUM: No adenopathy. No pneumoperitoneum. No mediastinal hematoma. PULMONARY DAVID: No h ilar mass or adenopathy is seen. THORACIC AORTA Unremarkable LUNG NODULE None LUNGS: Near-complete resolution of groundglass parenchymal densities. Chronic basilar fibrotic changes. PLEURAL EFFUSION: Near-complete resolution of pleural effusion PNEUMOTHORAX: No pneumothorax seen. CHEST WALL: No abnormality AXILLA:Unremarkable BONY STRUCTURES at thoracic hyperostosis UPPER ABDOMEN: Image s of the upper abdomen are noncontributory. C T/CT chest wo con IMPRESSION: Near-com plete resolution of groundglass parenchymal densities and pleural effusions. Basilar fibrotic changes. Impression dictated by: Benton Chakraborty M.D.07/07/2024 3:39 PM Dictation Location: [place] [address] Electronically authenticated by: [id number] Y Date: 07/07/2024 15:39 Dictated By: Edwin Chakraborty D.O. Signed By: 07/07/24 1541 DD/ 1539 TD/TT: Contact Centre Supervisor: PROF KNIGHT 8 (BAS METB) Reviewed date:04/19/2024 08:45:34 PM Interpretation: Performing Lab: Notes/Report: [facility] , Sodium 130 136-145 mmol/L Potassium 4.6 3.5-5.1 mmol/L Chloride 97 98-107 mmol/L Carbon Dioxide 24.9 21.0-32.0 mmol/L Anion Gap 12.7 Glucose 213 74-106 mg/dL Blood Urea Nitrogen 88.0 7.0-18.0 mg/dL RESULT S CALLED TO TRINI FERNÁNDEZ RN Creatinine 2.63 0.70-1.30 mg/dL Estimated GFR ( Yaa 29 >=60 mL/min/1.73m 2 Estimated GFR (Non- Maryuri 24 >=60 mL/min/1.73m 2 BUN Creatinine Ratio 33.5 Calcium 9.0 8.5-10.1 mg/dL Performing Lab: see note ML - [facility] LB PROF 14(COMP METB) Reviewed date:04/18/2024 04:36:52 PM Interpretation: Performing Lab: Notes/Report: [facility] , Sodium 131 136-145 mmol/L Potassium 4.0 3.5-5.1 mmol/L Chloride 99 98-107 mmol/L Carbon Dioxide 23.2 21.0-32.0 mmol/L Anion Gap 12.8 Glucose 227 74-106 mg/dL Blood Urea Nitrogen 60.0 7.0-18.0 mg/dL Creatinine 2.57 0.70-1.30 mg/dL Estimated GFR ( Yaa 30 >=60 mL/min/1.73m 2 Estimated GFR (Non- Maryuri 24 >=60 mL/min/1.73m 2 BUN Creatinine Ratio 23.3 Calcium 8.9 8.5-10.1 mg/dL Bilirubin Total 0.3 0.2-1.0 mg/dL Aspartate Amino Transferase 12 15-37 U/L Alanine Aminotransferase 17 16-63 U/L Alkaline Phosphatase 58 46-116 U/L Total Protein 6.0 6.4-8.2 g/dL Albumin Level 2.2 3.4-5.0 g/dL Globulin 3.8 Albumin Globulin Ratio 0.6 Performing Lab: see note - [facility] CBC AUTO DIFF Reviewed date:04/18/2024 04:36:52 PM Interpretation: Performing Lab: Notes/Report: [facility] , White Blood Count 16.8 4.0-11.0 10 3/uL Red Blood Count 2.97 4.70-6.10 10 6/uL Hemoglobin 9.5 14.0-18.0 g/dL Hematocrit 28.0 42.0-54.0 % Mean Corpuscular Volume 94.3 80.0-94.0 fL Mean Corpuscular Hemoglobin 32.0 25.9-34.0 pg Mean Corpuscular HGB Conc 33.9 29.9-35.2 g/dL Red Cell Distribution Width 13.7 11.0-15.0 % Platelet Count 267 150-450 10 3/uL Mean Platelet Volume 8.5 9.5-13.5 fL Performing Lab: see note [facility] PROF CHEM 8 (BAS METB) Reviewed date:02/27/2024 06:07:44 PM Interpretation: Performing Lab: Notes/Report: [facility] , Sodium 140 136-145 mmol/L Potassium 3.9 3.5-5.1 mmol/L Chloride 106 98-107 mmol/L Carbon Dioxide 24.6 21.0-32.0 mmol/L Anion Gap 13.3 Glucose 187 74-106 mg/dL Blood Urea Nitrogen 29.0 7.0-18.0 mg/dL Creatinine 1.90 0.70-1.30 mg/dL Estimated GFR ( Yaa 42 >=60 mL/min/1.73m 2 Estimated GFR (Non- Maryuri 34 >=60 mL/min/1.73m 2 BUN Creatinine Ratio 15.3 Calcium 9.1 8.5-10.1 mg/dL Performing Lab: see note - [facility] LB CBC AUTO DIFF Reviewed date:02/27/2024 06:07:44 PM Interpretation: Performing Lab: Notes/Report: [facility] , White Blood Count 9.3 4.0-11.0 10 3/uL Red Blood Count 3.69 4.70-6.10 10 6/uL Hemoglobin 11.6 14.0-18.0 g/dL Hematocrit 35.5 42.0-54.0 % Mean Corpuscular Volume 96.2 80.0-94.0 fL Mean Corpuscular Hemoglobin 31.4 25.9-34.0 pg Mean Corpuscular HGB Conc 32.7 29.9-35.2 g/dL Red Cell Distribution Width 13.7 11.0-15.0 % Platelet Count 282 150-450 10 3/uL Mean Platelet Volume 8.6 9.5-13.5 fL Neutrophils Percent Auto 61.6 43.0-75.0 % Lymphocytes Percent Auto 24.0 20.5-60.0 % Monocytes Percent Auto 10.1 1.7-12.0 % Eosinophils Percent Auto 3.7 0.9-7.0 % Basophils Percent Auto 0.3 0.2-2.0 % Immature Granulocytes Pct Auto 0.3 0.0-0.5 % Neutrophils Absolute Auto 5.7 1.4-6.5 10 3/uL Lymphocytes Absolute Auto 2.2 1.2-3.8 10 3/uL Monocytes Absolute Auto 0.9 0.3-0.8 10 3/uL Eosinophils Absolute Auto 0.3 0.0-0.7 10 3/uL Basophils Absolute Auto 0.0 0.0-0.1 10 3/uL Immature Granulocytes Abs Auto 0.03 0.00-0.03 10 3/uL Performing Lab: see note ML - [facility] LB CT abdomen pelvis wo con Reviewed date:02/27/2024 06:07:44 PM Interpretation: Performing Lab: Notes/Report: Source Facility: [facility] [place] [address] [place] [address] CT Scan Report Signed Patient: Leighton Arciniega MR#: [id number] : 1945 Acct:[id number] Age/Sex: 78 / M ADM Date: 02/26/24 Loc: ER Attending Dr: Ordering Physician: Christine Sykes M.D. Date of Service: 02/26/24 Procedure(s): CT abdomen pelvis wo con Accession Number(s): [id number] cc: Jayy Dutta M.D. [address] [address] Patient Name: LEIGHTON ARCINIEGA MRN: [id number] date: 1945 Sex: M Assigned Patient Location: ER Current Patient Location: ED.MAIN Accession/Order Number: [id number] Exam Date: 02/26/2024 12:51 Report Date: 02/26/2024 14:22 At the request of: CHRISTINE SYKES Procedure: CT abdomen pelvis wo con EXAM: CT abdomen pelvis wo con INDICATION: Pain, UTI, elevated creatinine. COMPARISON: None. TECHNIQUE: Multiple contiguous axial CT images of the abdomen and pelvis were obtained without the use of intravenous contrast. Sagittal and coronal reconstructions were performed. Dose reduction techniques were achieved by using: automated exposure control and/or adjustment of mA and /or kV according to patient size and/or use of iterative reconstruction technique. FINDINGS: Evaluation of visceral organs limited by noncontrast technique. LOWER CHEST: Subdermal 2.3 cm sebaceous cyst noted in the right lower chest. ABDOMEN AND PELVIS: LIVER: Punctate calcified granulomas. BILIARY SYSTEM: Normal gallbladder. No biliary ductal dilatation. PANCREAS: Unremarkable. SPLEEN: Punctate calcified granulomas. ADRENAL GLANDS: Normal. URINARY SYSTEM: Right renal 2.0 cm cyst. Unremarkable left kidney. No hydronephrosis or urolithiasis. Circumferential wall thickening and trabeculation of the bladder. Mild pericystic inflammation. REPRODUCTIVE: Enlarged prostate gland. GASTROINTESTINAL TRACT: Normal caliber bowel. No bowel wall thickening or inflammation. Colonic diverticulosis without diverticulitis. Normal appendix. VESSELS: Nonaneurysmal abdominal aorta with moderate atherosclerotic calcifications. LYMPH NODES: No adenopathy. PERITONEUM: No ascites or pneumoperitoneum. MUSCULOSKELETAL: SOFT TISSUES: Unremarkable soft tissues. BONES: No acute osseous abnormality or suspicious osseous lesion. Grade 1 retrolisthesis of L3 on L4. Moderate degenerative changes of the lumbar spine. SEVERINO: (series:image) CT/CT abdomen pelvis wo con IMPRESSION: 1. Circumferential wall thickening and trabeculation of the bladder likely sequelae of chronic outlet obstruction in the setting of prostatomegaly. Superimposed cystitis. 2. Colonic diverticulosis without diverticulitis. Electronically authenticated by: ORLY GIANG Date: 02/26/2024 14:22 Dictated By: Orly Giang M.D. Signed By: 02/26/241423 DD/ 21 TD/TT: Contact Centre Supervisor: [place] [address] CT Scan Report Signed Patient: Kuldip Arciniega MR#: [id number] : 1945 Acct:[id number] Age/Sex: 78 / M ADM Date: 02/26/24 Loc: ER Attending Dr: Ordering Physician: Christine Sykes M.D. Date of Service: 02/26/24 Procedure(s): CT abd omen pelvis wo con Accession Number(s): [id number] cc: Jayy Dutta M.D. [place] [id number] Patient Name: LEIGHTON ARCINIEGA MRN: [id number] date: 1945 Sex: M Assigned Patient Location: ER Current Patient Loca tion: ED.MAIN Accession/Order Numb er: [id number] Exam Date: 12:51 Report Date: 02/26/2024 14:22 At the request of: CHRISTINE SYKES Procedure: CT abdome n pelvis wo con EXAM: CT abdomen pel vis wo con INDICATION: Pain, UT I, elevated creatinine. COMPARISON: None. TECHNIQUE: Multiple contiguous axial CT images of the abdomen and pelvis were obtained without the use of intravenous contrast. Sagittal and coronal reconstructions were performed. Dose reduction techn iques were achieved by using: automated exposure control and/or adjustment of mA and /or kV according to patient size and/or use of iterative reconstruc tion technique. FINDINGS: Evaluation of viscer al organs limited by noncontrast technique. LOWER CHEST: Subdermal 2.3 cm sebaceous cyst noted in the right lower chest. ABDOMEN AND PELVIS: LIVER: Punctate calc ified granulomas. BILIARY SYSTEM: Norm al gallbladder. No biliary ductal dilatation. PANCREAS: Unremarkable. SPLEEN: Punctate calcified granulomas. ADRENAL GLANDS: Normal. URINARY SYSTEM: Righ t renal 2.0 cm cyst. Unremarkable left kidney. No hydronephrosis or urolithiasis. Circumferential wall thickening and trabeculation of the bladder. Mild pericystic inflammation. REPRODUCTIVE: Enlarg ed prostate gland. GASTROINTESTINAL TRA CT: Normal caliber bowel. No bowel wall thickening or inflammation. Coloni c diverticulosis without diverticulitis. Normal appendix. VESSELS: Nonaneurysm al abdominal aorta with moderate atherosclerotic calcifications. LYMPH NODES: No adenopathy. PERITONEUM: No ascit es or pneumoperitoneum. MUSCULOSKELETAL: SOFT TISSUES: Unremarkable soft tissues. BONES: No acute osse ous abnormality or suspicious osseous lesion. Grade 1 retrolisthesis of L3 on L4. Moderate degenerative changes of the lumbar spine. SEVERINO: (series:image) C T/CT abdomen pelvis wo con IMPRESSION: 1. Circumferential w all thickening and trabeculation of the bladder likely sequelae of chronic outlet obstruction in the setting of prostatomegaly. Superimposed cystitis. 2. Colonic diverticu losis without diverticulitis. Electronically authenticated by: ORLY GIANG Date: 02/26/2024 14:22 Dictated By: Nicole Giang M.D. Signed By: 02/26/241423 DD/ 21 TD/TT: Contact Centre Supervisor: SERGEY RANDOM W or MICROSCOPIC Reviewed date:02/27/2024 06:07:44 PM Interpretation: Performing Lab: Notes/Report: [facility] , Color Urine LT YELLOW YELLOW Clarity Urine CLOUDY CLEAR Specific [place] Urine 1.015 1.005-1.025 pH Urine 6.0 5.0-9.0 Protein Urine 100 NEG/TRACE mg/dL Glucose Urine UA >=1000 NEGATIVE mg/dL Bilirubin Urine NEGATIVE NEGATIVE Ketones Urine NEGATIVE NEGATIVE mg/dL Blood Urine TRACE-I NEGATIVE Nitrite Urine NEGATIVE NEGATIVE Urobilinogen Urine 0.2 0.2-1.0 EU/dL Leukocyte Esterase Urine MODERATE NEGATIVE WBC Urine >100 NONE SEEN #/HPF RBC Urine 0-2 0-2 #/HPF Bacteria Urine TRACE NONE SEEN #/HPF Mucus Urine NONE SEEN NONE SEEN Squamous Epithelial Cell Urine RARE NONE/RARE #/LPF Crystals Seen? None Seen None Seen #/HPF Cast Seen? NONE SEEN NONE SEEN #/LPF Yeast Urine SEEN NONE SEEN Urine Culture Indicated YES Performing Lab: see note ML - [facility] LB PROF CHEM 8 (BAS METB) Reviewed date:02/27/2024 06:07:44 PM Interpretation: Performing Lab: Notes/Report: [facility] , Sodium 139 136-145 mmol/L Potassium 3.8 3.5-5.1 mmol/L Chloride 105 98-107 mmol/L Carbon Dioxide 24.1 21.0-32.0 mmol/L Anion Gap 13.7 Glucose 219 74-106 mg/dL Blood Urea Nitrogen 28.0 7.0-18.0 mg/dL Creatinine 2.01 0.70-1.30 mg/dL Estimated GFR ( Yaa 39 >=60 mL/min/1.73m 2 Estimated GFR (Non- Maryuri 32 >=60 mL/min/1.73m 2 BUN Creatinine Ratio 13.9 Calcium 9.2 8.5-10.1 mg/dL Performing Lab: see note ML - [facility] LB LIVER PROFILE Reviewed date:02/27/2024 06:07:44 PM Interpretation: Performing Lab: Notes/Report: [facility] , Bilirubin Total 0.3 0.2-1.0 mg/dL Bilirubin Direct 0.1 0.0-0.2 mg/dL Aspartate Amino Transferase 12 15-37 U/L Alanine Aminotransferase 16 16-63 U/L Alkaline Phosphatase 77 46-116 U/L Total Protein 6.4 6.4-8.2 g/dL Albumin Level 3.0 3.4-5.0 g/dL Globulin 3.4 Albumin Globulin Ratio 0.9 Performing Lab: see note ML - [facility] LB LACTATE or LACTIC ACID Reviewed date:02/27/2024 06:07:44 PM Interpretation: Performing Lab: Notes/Report: [facility] , Lactate/Lactic Acid 0.8 0.4-2.0 mmol/L Performing Lab: see note ML - [facility] LB CBC AUTO DIFF Reviewed date:02/27/2024 06:07:44 PM Interpretation: Performing Lab: Notes/Report: [facility] , White Blood Count 10.7 4.0-11.0 10 3/uL Red Blood Count 3.81 4.70-6.10 10 6/uL Hemoglobin 12.1 14.0-18.0 g/dL Hematocrit 36.6 42.0-54.0 % Mean Corpuscular Volume 96.1 80.0-94.0 fL Mean Corpuscular Hemoglobin 31.8 25.9-34.0 pg Mean Corpuscular HGB Conc 33.1 29.9-35.2 g/dL Red Cell Distribution Width 13.8 11.0-15.0 % Platelet Count 287 150-450 10 3/uL Mean Platelet Volume 8.8 9.5-13.5 fL Neutrophils Percent Auto 70.1 43.0-75.0 % Lymphocytes Percent Auto 17.0 20.5-60.0 % Monocytes Percent Auto 8.8 1.7-12.0 % Eosinophils Percent Auto 3.2 0.9-7.0 % Basophils Percent Auto 0.5 0.2-2.0 % Immature Granulocytes Pct Auto 0.4 0.0-0.5 % Neutrophils Absolute Auto 7.5 1.4-6.5 10 3/uL Lymphocytes Absolute Auto 1.8 1.2-3.8 10 3/uL Monocytes Absolute Auto 0.9 0.3-0.8 10 3/uL Eosinophils Absolute Auto 0.3 0.0-0.7 10 3/uL Basophils Absolute Auto 0.1 0.0-0.1 10 3/uL Immature Granulocytes Abs Auto 0.04 0.00-0.03 10 3/uL Performing Lab: see note ML - [facility] LB Reason For Referral No Information Medications Medication SIG (Take, Route, Frequency, Duration) Notes Start Date End Date Status glipiZIDE 5 MG 1 tablet Oral at breakfast then 2 tabs at bedtime for 90 days Active Magnesium Oxide 400 MG 1 tablet with silvino d Orally Once a day Active Multivitamin - 1 tablet Orally Once a day for 30 days 12/21/2022 Active Insulin Glargine 100 UNIT/ML 24 units Subcutaneous BID 12/21/2022 Ac tive Iron 325 (65 Fe) MG 1 tablet Orally Twic e Daily Active Ozempic (1 MG/DOSE) 4 MG/3ML 1mg Subcutaneous weekly 12/21/2022 Acti ve Potassium Chloride ER 10 MEQ 1 tablet with food Orally Twice a day Active Omeprazole 20 MG 1 tablet Orally Once a day for 90 days Active Opzelura 1.5 % 1 application Gardener ally Twice a day PRN Active Acetaminophen 500 MG 1 capsule as needed Orally every 6 hrs PRN Active Simvastatin 20 MG 1 tablet Orally Once a day for 90 days Active Valsartan 40 MG 1 tablet Orally Twic e a day Active Spironolactone 25 MG 1 tablet Orally Onc e a day for 30 days Active Terazosin HCl 10 MG 1 tablet Orally Once a day for 90 days Active Aspirin 81 81 MG 1 tablet Orally week ly for 30 days 12/21/2022 Active Calcium Citrate + D 12/21/2022 Active Advair Diskus 250-50 MCG/ACT 1 puff Inhalation Twice a day Active Vitamin B12 100 MCG as directed Orally O nce a day 12/21/2022 Active Allopurinol 300 MG 1 tablet Orally Once a day for 90 days Active Diclofenac Sodium 2.5 % as directed Externally PRN Active Eliquis 5 MG 1 tablet Orally Twic e a day for 30 days Active Carvedilol 6.25 MG 1 tablet Orally Twic e a day for 90 days Active Clobetasol Propionate 0.05 % 1 application Externally Twice a day PRN Active Tradjenta 5 MG 1 tablet Orally Once a day for 30 days 07/05/2024 Active Finasteride 5 MG Oral for 30 Days Active Furosemide 20 MG 1 tablet Orally BID for 90 days Active Social History Tobacco Use: Social History Observation Description Date Details (start date - stop date) Former Smoker 03/22/1960 - 03/22/1995 Tobacco Use/Smoking Question Answer Notes Patient is a former smoker When did you start smoking? 03/22/1960 When did you stop smoking? 03/22/1995 How long has it been since you last smoked? > 10 years Alcohol Screen (Audit-C) Question Answer Notes Did you have a drink containing alcohol in the p ast year? No Points 0 Interpretation Negative AUDIT-C (Standard) Question Answer Notes Did you have a drink containing alcohol in the p ast year? 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) Active confirmed Problem 80039802 Atrioventricular block, second degree (I44.1) Active confirmed Problem 96247473 Unspecified atri al fibrillation (I48.91) Active confirmed Problem 03155286 Sick sinus syndr ome (I49.5) Active confirmed Problem 189913560 Acute on chronic diastolic (congestive) heart failure (I50.33) Active confirmed Problem 24456882 Pulmonary fibros is, unspecified (J84.10) Active confirmed Problem 493063103 Chronic kidney disease, stage 4 (severe) (N18.4) Active confirmed Problem 176967310 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.4) Active confirmed Problem 185592053 Presence of card iac pacemaker (Z95.0) Active confirmed Problem COPD - Chronic obstructive pulmonary disease (38704753) COPD (chronic obstructive pulmonary disease) (J44.9) Active confirmed Problem Gastroesophageal reflux disease (186777111) GERD (gastroesophageal reflux disease) (K21.9) Active confirmed Problem Atrial fibrillation (disorder) (79766493) Afib (I48.91) Active confirmed Problem Chronic kidney disea se (569746384) Chronic kidney disease (N18.9) Active confirmed Problem Coronary artery disease (51122693) CAD (coronary artery disease) (I25.10) Active confirmed Problem Arthritis (0150634) Arthritis (M19.90) Active c onfirmed Problem Chronic kidney disea se (476707085) CKD (chronic kidney disease) (N18.9) Active confirmed Problem Gout (10538554) Gout (M10.9) Active confirmed Problem Essential hypertensi on (56597675) Benign essential HTN (I10) Active confirmed Problem Cardiac pacemaker in situ (705479095) Pacemaker (Z95.0) Active confirmed Problem Respiratory failure (469196069) Respiratory failure (J96.90) Active confirmed Problem Migraine (50182021) Migraine (G43.909) Active c onfirmed Problem Benign prostatic hyperplasia (870075617) BPH (benign prostatic hyperplasia) (N40.0) Active confirmed Problem Congestive heart failure (44400300) CHF (congestive heart failure) (I50.9) Active confirmed Problem Diabetic renal disea se (732100987) 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) Active confirmed Problem Kidney stone (51543127) Kidney stones (N20.0) Active confirmed Problem Acute exacerbation o f chronic obstructive airways disease (176222957) COPD exacerbation (J44.1) Active confirmed Problem Atrial fibrillation (25119643) Atrial fibrillation with RVR (I48.91) Active confirmed Problem Interstitial lung disease (736650798) Interstitial lung disease (J84.9) Active confirmed Problem Heart disease (88119124) Heart disease (I51.9) Active confirmed Problem Thrombocytopenia (033199209) Thrombocytopenia (D69.6) Active confirmed Problem Leukocytosis (304098535) Leukocytosis (D72.829) Active confirmed Problem Hypertension (23030259) Uncontrolled hypertension (I10) Active confirmed Problem Spasm of bladder (501681097) Bladder spasms (N32.89) Active confirmed Problem Diverticular disease of colon (326901846) DD (diverticular disease) (K57.90) Active confirmed Problem Essential hypertensi on (79066475) BP (high blood pressure) (I10) Active confirmed Problem hypercholesterolemia (disorder) (28943282) Hypercholesteremia (E78.00) Active confirmed Problem Type II diabetes mellitus without complication (091566226) Diabetes (E11.9) Active confirmed Problem Diabetes mellitus (71046435) Diabetes mellitus (E11.9) Active confirmed Problem Systolic heart failu re (763311881) HFrEF (heart failure with reduced ejection fraction) (I50.20) Active confirmed Problem Chronic kidney disea se stage 3B (disorder) (109867215) Chronic kidney disease, stage 3b (N18.32) Active confirmed Vital Signs Oximetry 89 % 04/27/2024 Blood pressure diastolic 62 mm Hg 07/05/2024 Height 70 in 07/05/2024 Blood pressure systolic 116 mm Hg 07/05/2024 Weight 182 lbs 07/05/2024 BMI 26.11 kg/m2 07/05/2024 Encounters Encounter Location Date Provider Diagnosis [facility] ([place], [place]) [address] [place] [address] 02/28/[address] [facility] ([place], [place] [address] [place] [address] [facility] [address] [facility] [place] [address] 03/13/2024 Vinicio Dutta [facility] [address] [facility] [place] [address] 03/31/[address] [facility] ([place], [place] [address] [facility] [place] [address] 06/20/[address] [facility] ([place], [place] [address] [facility] [place] [address] 07/08/[address] [facility] ([place], [place] [address] [facility] [place] [address] 07/20/[address] [facility] [address] [facility] [place] [address] 03/03/2024 Rosina Lilibeth UTI (urinary tract infection) N39.0 [facility] ([place], [place]) [address] [facility] [place] [address] 03/16/2024 Vinicio Alfredolesvia Essential (primary) hypertension I10 ; Unspecified atrial fibrillation I48.91 ; Kidney stones N20.0 and GERD (gastroesophageal reflux disease) K21.9 [facility] ([place], [place]) [address] [facility] [place] [address] 04/27/2024 Vinicio Dutta Acute bronchitis, unspecified organism J20.9 [facility] ([place], [place] [address] [facility] [place] [address] 07/05/2024 Vinicio Dutta Unspecified atrial fibrillation I48.91 ; Hyperlipidemia, unspecified E78.5 ; Diabetes mellitus E11.9 ; Benign essential HTN I10 and Pneumonia J18.9 Assessments Encounter Date Diagnosis (ICD Code) Assessment Notes Treatment Notes Treatment Clinical Notes Section Notes 03/03/2024 UTI (urinary tract infection) (ICD-10 - N39.0) some better, some sx has fu urology , keep that finish Cipro fu as needed 03/16/2024 Essential (primary) hypertension (ICD-10 - I10) 03/16/2024 Unspecified atrial fibrillation (ICD-10 - I48.91) 04/27/2024 Acute bronchitis, unspecified organism (ICD-10 - J20.9) Rest and drink more liquids, especially water. You may use a humidifier or vaporizer to help keep the drainage moist. Yasr-dxe-hnffiyp Nasal Saline may help the stuffy and runny nose. Use Ibuprofen and or Tylenol as needed for fever, chills, body aches or pain. Children 5 years old should not be given cnpx-nvl-ajclknm cough and cold medications such as guaifenesin and dextromethorphan. If you're over age 5, you may try asvz-mwn-hmzybml cold medications such as guaifenesin and dextromethorphan, or multi-symptom cold reliever such as Dayquil to help reduce the symptoms. Antibiotics have been prescribed. You should take these until completed and follow the directions. Antibiotics can sometimes cause upset stomach, and in rare cases, serious allergic reactions or serious gastrointestinal problems. If you start having severe abdominal pain, severe vomiting, or bloody diarrhea, you should be reevaluated by your physician or urgent care immediately. Follow up with your Primary Care Provider or return to clinic if symptoms do not improve within 3-5 days. If you develop severe symptoms such as shortness of breath, repeated vomiting, coughing up blood, or chest pain you should go to the emergency room or call 911 07/05/2024 Unspecified atrial fibrillation (ICD-10 - I48.91) 07/05/2024 Hyperlipidemia, unspecified (ICD-10 - E78.5) 07/05/2024 Diabetes mellitus (ICD-10 - E11.9) Ernesto tradjenta foe high sugars and has hystory oif hypoglycemia - this med will not cause that 03/16/2024 Kidney stones (ICD-10 - N20.0) 03/16/2024 GERD (gastroesophagea l reflux disease) (ICD-10 - K21.9) 07/05/2024 Benign essential HTN (ICD-10 - I10) 07/05/2024 Pneumonia (ICD-10 - J18.9) Plan Of Treatment Pending Test Test Name Order Date CULTURE SPUTUM 04/27/2024 SPUTUM GRAM STAIN 04/27/2024 CT CHEST WO CON 07/05/2024 XR CHEST 2 V 04/27/2024 Next Appt Details Provider Name:Vinicio Dutta, 01:00:00 PM, [address] [facility] [place], [address], Insurance Providers Payer Name Payer Address Payer Phone Subscriber Number Group Number Insured Name Patient Relationship to Insured Coverage Start Date Coverage End Date [place]IC[place] [address] [place] [address] [phone] [id number] Leighton Arciniega Self - patient is the insured 1 [employer] [address] [place] [address] [id number] Leighton Arciniega Self - patient is the insured 7 Medical (General) History Medical History History ICD Code Hypertensive renal disease I12.9 Acute CHF I50.9 COPD (chronic obstructive pulmonary dise ase) J44.9 Bilateral lumbar radiculopathy M54.16 Neck pain M54.2 AV block, 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
[2024-08-17 10:44] LABS: Bilirubin Urine NEGATIVE (NEGATIVE); Blood Urine TRACE-I (NEGATIVE); Clarity Urine SL CLOUDY (CLEAR); Color Urine LT. YELLOW (YELLOW); Glucose Urine UA 250 mg/dL (NEGATIVE); Ketones Urine NEGATIVE (NEGATIVE); Leukocyte Esterase Urine LARGE (NEGATIVE); Nitrite Urine POSITIVE (NEGATIVE); Protein Urine NEGATIVE (NEG/TRACE); Specific Gravity Urine <=1.005 (1.005-1.025); Urobilinogen Urine 0.2 EU/dL (0.2-1.0)
--- OUTSIDE RECORDS SUMMARY | 2024-08-17 10:45 | XMS_ITS | CCD ---
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 Attending Unavailable Lue, Mica M. Referring Unavailable Lue, Mica M. Attending Unavailable Lue, Mica M. Referring Unavailable JdzeAnna rasmussen Attending Unavailable Lue, Mica M. Attending Unavailable NATA TA Attending Unavailable Lue, Mica M. Referring Unavailable Lue, Mica M. Admitting Unavailable Lue, Mica M. Attending Unavailable Lue, Mica M. Referring Unavailable Lue, Mica M. Admitting Unavailable Lue, Mica M. Attending Unavailable Varghese Caal P Admitting Unavailable McGuinnVarghese P Attending Unavailable McGuinVarghese castro P Referring Unavailable Lue, Mica M. Admitting Unavailable Lue, Mica M. Attending Unavailable Lue, Mica M. Attending Unavailable Barb Loza Admitting UnavailBarb Lang Attending Unavailabl Vini Morrison Attending Unavailable NAPOLEON TA Attending Unavailab le Lue, Mica MAnisa Attending Unavailable Lori Medina MD Primary Care Provider Alexa Corona MD Admit Provider Alexa Corona MD Attending Provider Gabriela Adame RN Other Provider Unavailable Shirley Harvey DO Other Provider [phone] Rupert Rey MD Other Provider [phone] Varghese Caal MD Other Provider Osvaldo Dickinson MD Other Provider Ben Calderon MD Other Provider Allie Ramírez APRN Other Provider Evelyn Zhang MD Other Provider Mauri SANDHU, Lorenzo Foreman Other Provider Rajat Foster MD Other Provider [facility], Sanaz L Other Provider Dacia Rene DO Attending Provider [phone] Benton Vasquez DO Attending Provider Unavailab jameson Medina MD, Lori Vallejo Primary Care Provider Chloe SANDHU, Alexa Admit Provider Chloe SANDHU, Alexa Attending Provider Deep GODINEZ, Gabriela Other Provider Unavailable Shirley Harvey DO Other Provider Krissy SANDHU, Rupert Other Provider Afua SANDHU, Varghese Lord Other Provider Bobbi SANDHU, Osvaldo Other Provider Kvng SANDHU, Ben Other Provider Allie Ramírez APRN Other Provider Vicente SANDHU, Evelyn Other Provider Mauri SANDHU, Lorenzo Foreman Other Provider Cristian SANDHU, Rajat Other Provider [facility], Sanaz Patel Other Provider Edgard REYES, Dacia Carrasquillo Attending Provider Jorge REYES, Don Rolon Admit Provider Richard Zamora DO Attending Provider [phone] Autumn Woody APRN Other Provider Darshan Willams MD Other Provider Kajal SANDHU, Demond Mccray Other Provider Kamar SANDHU, Chun Rockwell Other Provider Cody James DO Other Provider Rick Roy DO Other Provider Juanito SANDHU, Titi Other Provider Fatemeh SANDHU, Denny Holt Other Provider Yue Lindsey MD Other Provider Sarah Reyes MD Other Provider Andrea Espinoza DO Primary Care Provider [phone] Mica Car Attending Unavailable Mica Car Attending Unavailable Mica Car Attending Unavailable Deepti Powell Attending Unavailable Mica Car Attending Unavailable Mica Car Attending Unavailable Mica Car Admitting Unavailable Mica Cra Attending Unavailable Deepti Powell Attending Unavailable VARGHESE CAAL Attending Unavailable VARGHESE CAAL Referring Unavailable ANDREA ESPINOZA Primary Care Unavailable OSVALDO DICKINSON Attending Unavailable VARGHESE CAAL Referring Unavailable ANDREA ESPINOZA Primary Care Unavailable OSVALDO DICKINSON Attending Unavailable ANDREA ESPINOZA Primary Care Unavailable Gabriela Adame Consulting Unavailable Lyn Coronaa Admitting Unavailable Lori Medina Primary Care Unavailable Alexa Corona Attending Unavailable Shirley Harvey Consulting Unavailable Rupert Rey Consulting Unavailable Varghese Caal Consulting Unavail able Osvaldo Dickinson Consulting Unavailable Ben Calderon Consulting Unavailab Allie Rico Consulting Unavailable Evelyn Zhang Consulting Unavailable Lorenzo Dotson Consulting Unavailab Rajat Hook Consulting Unavailable Sanaz Stewart Consulting Unavailable Benton Vasquez Attending Unavailable Benton Vasquez Admitting Unavailable Benton Vasquez Admitting Unavailable Benton Vasquez Attending Unavailable Dacia Rene Admitting Unavailable MarkerDacia Attending Unavailable Lori Medina Primary Care Unavailable Richard Zamora Admitting UnavailRichard Noriega Attending Unavailabl Lori Jean Primary Care Unavailable Richard Zamora Attending UnavailRichard Noriega Admitting Unavailabl Don Navarro Admitting Unavailable Autumn Woody Consulting Unavailable Lori Medina Primary Care Unavailable Richard Zamora Attending UnavailShirley Pringle Referring Unavailable Darshan Willams Consulting Unavaila ble Demond Rdz Consulting Unavailable Chun Galvin Consulting Unavailable Cody James Consulting Unavailable SamRick adamson Consulting Unavailable Solomon, Basem Consulting Unavailable Zeeshan-Denny Hughes Consulting Un available [place], Bashar Consulting Unavailable Sarah Reyes Consulting Unavaila ble Orzech, Anna X Attending Unavailable Traboulssi, Mourhaf Admitting Unavailable Traboulssi, Mourhaf Attending Unavailable Traboulssi, Mourhaf Referring Unavailable Orzech, Anna X Admitting Unavailable Orzech, Anna X Attending Unavailable Orzech, Anna X Attending Unavailable Mica Car. Attending Unavailable Lue Mica M. Referring Unavailable Lue, Mica M. Admitting Unavailable LueMica M. Attending Unavailable Mica Car M. Referring Unavailable Lue Mica M. Attending Unavailable LueMica MAnisa Referring Unavailable Allergies Allergy Classification Reported Allergen(s) Allergy Type Date of Onset Reaction(s) Facility (10 sources) Enalapril; 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: [enalapril] Drug Allergy 02-10-20 23 [facility] (20 sources) Metoprolol; 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: [metoprolol] Drug Allergy 10-12-19 23 Cough, Unknown -[facility] [facility] DO Work Phone: (6 sources) Fosinopril; 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: [Monopril] Drug Allergy 03-16-20 14 [facility] (1 source) Metoprolol Drug Allergy 05-16-19 15 [facility] (7 sources) strawberry allergenic extract; 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: [STRAWBERRY] Drug Allergy 05-16-19 15 Rash [facility] (1 source) tomato allergenic extract Drug Allergy 05-16-19 15 [facility] (14 sources) Fosinopril; 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: [FOSINOPRIL] Drug Allergy 10-12-19 23 Unknown [facility] Work Phone: (5 sources) hydroCHLOROthiazide / Metoprolol; 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: [hydrochlorothiazide-m etoprolol] Drug Allergy [facility] Repository (5 sources) [place]; Translations: [Strawberries] Food allergy (disorder) [facility] (5 sources) Tomatoes; Translations: [Tomatoes] Food allergy (disorder) [facility] (1 source) strawberry allergenic extract Drug Allergy 05-16-19 15 [facility] (1 source) Fosinopril Drug Allergy 05-09-19 [facility] Rep[facility] (1 source) Metoprolol Drug Allergy 05-09-19 [facility] (1 source) strawberry allergenic extract Drug Allergy 05-09-19 [facility] Repository Medications Current Medications Medication Drug Class(es) Dates Sig (Normalized) Sig (Original) acetaminophen 500 mg oral capsule (19 sources) Start: 05-09-2024 take 2 capsules by mouth every six hours as needed for pain Acetaminophen 500 mg capsule Active 1000 MG PO Every 6 hours as needed for fever or pain May 09, 2024 1:00am take 1 capsule by mo [facility] every six hours as needed acetaminophen (TylenoL) 325 mg capsule T evelyn 1 capsule (325 mg) by mouth every 6 hours if needed. Active acetaminophen (T ylenol 8 Hour) 650 MG ER tablet Tylenol Active albuterol 0.83 mg/ml inhalation solution (5 sources) beta2-Adrenergic Agonist Start: 05-09-2024 take 2.5 mg by inhalation every four hours as needed for wheezing Albuterol Sulfate 2.5 mg /3 mL (0.083 %) solution for nebulization Active 2.5 MG INHALATION Every 4 hours as needed for shortness of breath or wheezing May 09, 2024 1:00am allopurinol 300 mg oral tablet (19 sources) Xanthine Oxidase Inhibitor Start: 01-14-2021 take 1 tablet by mouth once daily Allopurinol 300 mg tablet Active 300 MG PO Daily May 09, 2024 1:00am apixaban 5 mg oral tablet (17 sources) Factor Xa Inhibitor Start: 05-09-2024 take 1 tablet by mouth every twelve hours Apixaban (Eliquis) 5 mg tablet Active 5 MG PO Every 12 hours May 09, 2024 1:00am Start: 12-16-2021 [facility] apixaban (Eliquis) 5 mg tablet Take 1 tablet (5 mg) by mouth 2 times a day. 12/16/2021 Active apixaban (Eliqui s) 5 MG tablet every 12 (twelve) hours. Active aspirin 81 mg oral tablet (19 sources) Platelet Aggregation Inhibitor, Nonsteroidal Anti-inflammatory Drug Start: 05-09-2024 take 1 capsule by mouth every week Aspirin 81 mg capsule Active 81 MG PO .weekly May 09, 2024 1:00am Wednesday Start: 12-16-2021 take 1 tablet by jai th every week aspirin 81 mg EC tablet Take 1 tablet (81 mg) by mouth 1 (one) time per week. 12/16/2021 Active take 1 tablet by jai th once daily Aspirin 325 MG Oral Tablet Delayed Release Take 1 tablet daily Quantity: 0 Refills: 0 Ordered: 22-Jan-2021 DO Active CALCIUM CARBONATE-VITAMIN D3 ORAL (4 sources) take 1 tablet by mouth once daily CALCIUM CARBONATE-VITAMIN D3 ORAL Take 1 tablet by mouth once daily. Active take 1 tablet by mouth once jose y CALCIUM CARBONATE-VITAMIN D3 ORAL Take 1 tablet by mouth once daily. 0 Active calcium citrate 1500 mg / cholecalciferol 200 unt oral tablet (5 sources) Vitamin D Start: 05-09-2024 take 1 tablet by mouth once daily Calcium Citrate-Vitamin D3 315 mg-5 mcg (200 unit) tablet Active 1 TAB PO Daily May 09, 2024 1:00am carvedilol 6.25 mg oral tablet (19 sources) alpha-Adrener gic Howie, beta-Adrenerg ic Howie Start: 12-17-2020 take 1 tablet by mouth twice daily at mealtime Carvedilol (Coreg) 6.25 mg tablet Active 6.25 MG PO Twice daily May 09, 2024 1:00am must administer with a meal/food carvedilol (Core g) 6.25 MG tablet every [...] oral capsule (12 sources) Vitamin D End: 06-05-2024 cholecalciferol (Vitamin D-3) 50 MCG (1999 UT) capsule Vitamin D Active dapagliflozin 10 mg oral tablet (4 sources) Sodium-Glucose Cotransporter 2 Inhibitor Start: 05-26-2024 take 1 tablet by mouth once daily Dapagliflozin Propanediol 10 mg Tablet Active 10 MG PO Daily 0 May 26, 2024 1:00am take 0.5 tablet by m outh every twenty-four hours dapagliflozin propanediol (Farxiga) 10 m g Take 0.5 tablets (5 mg) by mouth once every 24 hours. Active finasteride 5 mg oral tablet (6 sources) 5-alpha Reductase Inhibitor Start: 05-09-2024 take 1 tablet by mouth once daily Finasteride 5 mg tablet Active 5 MG PO Daily May 09, 2024 1:00am furosemide 20 mg oral tablet (20 sources) Loop Diuretic Start: 05-25-2024 take 3 tablets by mouth once daily Furosemide 20 mg Tablet Active 60 MG PO Daily at 0800 90 30 May 25, 2024 1:00am Start: 01-14-2021 End: 06-15-2024 take 1 tablet by mouth twice daily Furosemide 20 mg tablet Discontinued 20 MG PO Twice daily May 09, 2024 1:00am May 13, 2024 3:06pm take 1 tablet by jai th three times daily furosemide (Lasix) 20 mg tablet Take 1 tablet (20 mg) by mouth 3 times daily (morning, midday, late afternoon). Active furosemide (Lasi x) 20 MG tablet every 12 (twelve) hours. Active insulin aspart protamine, human 70 unt/ml / insulin aspart, human 30 unt/ml injectable suspension (1 source) Insulin Analog insulin asp prt- insulin aspart (NovoLOG Mix 70-30 U-100 Insuln) 100 unit/mL (70-30) injection Inject under the skin 2 times daily (morning and late afternoon). Take as directed per insulin instructions. Active Insulin Aspart U-100 100 unit/mL (3 mL) Insulin Pen (8 sources) Start: 05-26-2024 Insulin Aspart U-100 100 unit/mL (3 mL) Insulin Pen Active 0 UNIT SUBCUT 3X/Day with meals and bedtime May 26, 2024 1:00am Please contact the information source for Protocol details. Start: 05-13-2024 End: 05-27-2024 Insulin Aspart U-100 100 uni t/mL (3 mL) Insulin Pen Discontinued 0 UNIT SUBCUT 3X/Day with meals and bedtime 0 May 13, 2024 1:00am May 27, 2024 1:39pm Please contact the information source for Protocol details. Start: 05-13-2024 Insulin Aspart U-100 100 unit/mL (3 mL) Insulin Pen Active 0 UNIT SUBCUT 3X/Day with meals and bedtime 0 May 13, 2024 12:00am Please contact the information source for Protocol details. 3 ml insulin glargine 100 unt/ml pen injector (20 sources) Insulin Analog Start: 05-27-2024 Insulin Glargi ne (Lantus Solostar U-100 Insulin) 100 unit/mL (3 mL) Insulin Pen Active 25 UNIT SUBCUT Twice daily 0 May 27, 2024 1:00am Start: 05-13-2024 End: 05-27-2024 Insulin Glargine (Lantus Nasrin ostar U-100 Insulin) 100 unit/mL (3 mL) Insulin Pen Discontinued 18 UNIT SUBCUT Daily 0 May 13, 2024 1:00am May 27, 2024 1:39pm Start: 05-13-2024 End: 05-27-2024 inject 8 [IU] by subcutaneous injection once daily at bedtime Insulin Glargine (Lantus Solostar U-100 Insulin) 100 unit/mL (3 mL) Insulin Pen Discontinued 8 UNIT SUBCUT Daily at bedtime 0 May 13, 2024 1:00am May 27, 2024 1:39pm Start: 05-09-2024 End: 05-13-2024 inject 24 [IU] by subcutaneous injection twice daily Insulin Glargine 100 unit/mL (3 mL) insulin pen Discontinued 24 UNIT SUBCUT Twice daily May 09, 2024 1:00am May 13, 2024 3:06pm Start: 10-22-2021 insulin glargi ne (Lantus U-100 Insulin) 100 unit/mL injection Inject under the skin. 10/22/2021 Active INSULIN GLARGINE, 1 UNIT DIAL, SC (5 sources) INSULIN GLARGINE , 1 UNIT DIAL, SC Insulin Glargine Active linagliptin 5 mg oral tablet (4 sources) Dipeptidyl Peptidase 4 Inhibitor Start: 03-07-202 5 take 1 tablet by mouth once daily at breakfast Linagliptin (Tradjenta) 5 mg Tablet Active 5 MG PO Daily with breakfast 0 May 26, 2024 1:00am magnesium oxide 400 mg oral tablet (4 sources) Start: 5 take 1 tablet by mouth once daily Magnesium Oxide 400 mg (241.3 mg magnesium) Tablet Active 400 MG PO Daily May 25, 2024 1:00am mecobalamin 1 mg chewable tablet (5 sources) Start: 5 take 1 tablet by mouth once daily Mecobalamin (Vitamin B12) 1,000 mcg tablet,chewable Active 1000 MCG PO Daily May 09, 2024 1:00am melatonin 5 mg oral tablet (4 sources) Start: 5 take 1 tablet by mouth once daily at bedtime as needed Melatonin 5 mg Tablet Active 5 MG PO Daily at bedtime as needed for Insomnia May 26, 2024 1:00am melatonin 5 mg t ablet,chewable Chew. Active Multiple Minerals-Vitamins (CALCIUM CITRATE PLUS PO) (5 sources) Multiple Mineral s-Vitamins (CALCIUM CITRATE PLUS PO) Calcium Citrate Plus Active Multiple Vitamins-Minerals (MULTIVITAMIN ADULT, MINERALS, PO) (5 sources) Multiple Vitamin s-Minerals (MULTIVITAMIN ADULT, MINERALS, PO) Multivitamin Adult Active Multivitamin (Daily Multi-Vitamin) tablet (5 sources) Start: 05-09-2024 take 1 tablet by mouth once daily Multivitamin (Daily Multi-Vitamin) tablet Active 1 TAB PO Daily May 09, 2024 1:00am Start: 05-09-2024 take 1 tablet by jai th once daily Multivitamin (Daily Multi-Vitamin) tablet Active 1 TAB PO Daily May 09, 2024 12:00am multivitamin tablet (4 sources) take 1 tablet by jai th once daily multivitamin tablet Take 1 tablet by mouth once daily. Active take 1 tablet by mouth once jose y multivitamin tablet Take 1 tablet by mouth once daily. 0 Active nystatin 100 unt/mg topical powder (5 sources) Polyene Antifungal Start: 08-10-2023 nystatin (Mycostatin) 453165 UNIT/GM powder Indications: Erythema intertrigo Apply to the affected area, twice daily when flared or for maintenance, 30 day supply 60 g 11 08/10/2023 Active pantoprazole 40 mg delayed release oral tablet (4 sources) Proton Pump Inhibitor Start: 05-26-2024 take 1 tablet by mouth once daily Pantoprazole 40 mg Tablet,Delayed Release (Dr/Ec) Active 40 MG PO Daily May 26, 2024 1:00am potassium chloride 10 meq extended release oral tablet (6 sources) Start: 05-13-2024 take 1 tablet by mouth once daily Potassium Chloride 10 mEq tablet extended release Active 10 MEQ PO Daily May 13, 2024 1:00am predniSONE 10 mg oral tablet (10 sources) Start: 05-26-2024 Prednisone 10 mg tablet Active 0 MG PO Daily May 26, 2024 1:00am Take in the morning with food. Please contact the information source for Taper Schedule details. Start: 05-09-2024 End: 05-13-2024 take 3 tablets by mouth once daily Prednisone 10 mg tablet Discontinued 30 MG PO Daily May 09, 2024 1:00am May 13, 2024 3:06pm 20 tab fill take 1 tablet by jai th three times daily predniSONE (Deltasone) 10 mg tablet Take 1 tablet (10 mg) by mouth 3 times a day. 4DAYS Active psyllium 3400 mg powder for oral suspension (4 sources) Start: 05-27-2024 Psyllium Husk (Aspartame) (Metamucil Fiber Singles) 3.4 gram Powder In Packet Active 1 PACKET PO Daily May 27, 2024 1:00am ruxolitinib (2 sources) Start: 01-17-2024 Ruxolitinib Ph osphate (Opzelura) 1.5 % cream Indications: Other atopic dermatitis Apply to affected areas, twice a day when flared, 30 day supply 60 g 11 01/17/2024 Active 1 mg dose 1.5 ml semaglutide 1.34 mg/ml pen injector (14 sources) inject 1 mg by subcutaneous injection [...] Refills: 0 Ordered: 22-Jan-2021 DO Active Semaglutide (5 sources) Start: 05-09-2024 inject 1 mg by subcutaneous injection every week Semaglutide (Ozempic) 1 mg/dose (4 mg/3 mL) pen injector Active 1 MG SUBCUT every week May 09, 2024 1:00am Start: 05-09-2024 inject 1 mg by subcu taneous injection every week Semaglutide (Ozempic) 1 mg/dose (4 mg/3 mL) pen injector Active 1 MG SUBCUT every week May 09, 2024 12:00am simvastatin 20 mg oral tablet (19 sources) HMG-CoA Reductase Inhibitor Start: 05-09-2024 take 1 tablet by mouth once daily Simvastatin 20 mg tablet Active 20 MG PO Daily May 09, 2024 1:00am Start: 01-14-2021 take 0.5 tablet by m outh once daily at bedtime simvastatin (Zocor) 20 mg tablet Take 0.5 tablets (10 mg) by mouth once daily at bedtime. 01/14/2021 Active simvastatin (Zoc or) 20 MG tablet 1 (one) time each day at the same time. Active spironolactone 50 mg oral tablet (20 sources) Aldosterone Antagonist Start: 05-25-2024 take 1 tablet by mouth once daily Spironolactone 50 mg Tablet Active 50 MG PO Daily May 25, 2024 1:00am Start: 05-13-2024 End: 05-27-2024 Spironolactone 25 mg tablet Discontinued 12.5 MG PO Daily May 13, 2024 3:05pm May 27, 2024 1:39pm Start: 01-14-2021 End: 05-13-2024 take 1 tablet by mouth once daily Spironolactone 25 mg tablet Discontinued 25 MG PO Daily May 09, 2024 1:00am May 13, 2024 3:06pm Start: 01-14-2021 take 2 tablets by mo uth once daily Spironolactone 25 MG Oral Tablet TAKE 2 TABLET Daily Quantity: 0 Refills: 0 Ordered: 14-Jan-2021 DO Start : 14-Jan-2021 Active tamsulosin hydrochloride 0.4 mg oral capsule (7 sources) alpha-Adrenergic Howie Start: 05-07-2023 End: 03-01-2024 tamsulosin (Flomax) 0.4 mg 24 hr capsule 1 capsule (0.4 mg) once daily. 05/07/2023 03/01/2024 Discontinued (Therapy completed) Start: 05-07-2023 tamsulosin (Fl omax) 0.4 MG 24 hr capsule 05/07/2023 Active terazosin 10 mg oral capsule (19 sources) alpha-Adrenergic Howie Start: 04-23-2020 take 1 capsule by mouth at bedtime Terazosin 10 mg capsule Active 10 MG PO Bedtime May 09, 2024 1:00am valsartan 40 mg oral tablet (4 sources) Angiotensin 2 Receptor Howie Start: 05-25-2024 take 1 tablet by mouth twice daily Valsartan 40 mg Tablet Active 40 MG PO Twice daily 60 May 25, 2024 1:00am vitamin b12 1 mg extended release oral tablet (14 sources) Vitamin B12 take 1 tablet by mouth once daily cyanocobalamin, vitamin B-12, (Vitamin B-12) 1,000 mcg tablet extended release Take 1 tablet (1,000 mcg) by mouth once daily. Active Cyanocobalamin ( Vitamin B 12) 100 MCG lozenge Vitamin B 12 Active Completed/Discontinued Medications Medication Drug Class(es) Dates Sig (Normalized) Sig (Original) amLODIPine 10 mg oral tablet (19 sources) Dihydropyridine Calcium Channel Howie Start: 01-14-2021 End: 06-15-2024 take 1 tablet by mouth once daily Amlodipine 10 mg tablet Discontinued 10 MG PO Daily May 09, 2024 1:00am May 13, 2024 3:06pm bumetanide 0.5 mg oral tablet (5 sources) Loop Diuretic Start: 05-13-2024 End: 05-27-2024 take 1 tablet by mouth once daily Bumetanide 0.5 mg Tablet Discontinued 1.5 MG PO DAILY@0800 0 May 13, 2024 1:00am May 27, 2024 1:39pm Calcium (5 sources) Phosphate Binder, Calcium Calcium 600 + D TABS TAKE 1 TABLET DAILY. Quantity: 0 Refills: 0 Ordered: 22-Jan-2021 DO Active clopidogrel 75 mg oral tablet (7 sources) P2Y12 Platelet Inhibitor Start: 03-20-2020 take 1 tablet by mouth once daily Clopidogrel Bisulfate 75 MG Oral Tablet Take 1 tablet daily Quantity: 90 Refills: 3 Ordered: 20-Mar-2020 DO Start : 20-Mar-2020 Active diclofenac sodium 0.01 mg/mg topical gel (3 sources) Nonsteroidal Anti-inflammatory Drug Start: 08-05-2023 End: 06-15-2024 diclofenac sodium (Voltaren) 1 % gel if needed. 08/05/2023 06/15/2024 Discontinued (Discontinued by another clinician) empagliflozin 25 mg oral tablet (10 sources) Sodium-Glucose Cotransporter 2 Inhibitor End: 06-15-2024 take 0.5 tablet by mouth once daily empagliflozin (Jardiance) 25 mg Take 0.5 tablets (12.5 mg) by mouth once daily. 06/15/2024 Discontinued (Discontinued by another clinician) empagliflozin (J ardiance) 25 MG 1 (one) time each day at the same time. Active ferrous sulfate 325 mg oral tablet (14 sources) End: 06-15-2024 take 1 tablet by mouth twice daily ferrous sulfate, 325 mg ferrous sulfate, tablet Take 1 tablet (325 mg) by mouth 2 times a day. 06/15/2024 Discontinued (Discontinued by another clinician) ferrous sulfate 325 (65 Fe) MG tablet every 12 (twelve) hours. Active fluconazole 200 mg oral tablet (5 sources) Azole Antifungal Start: 05-09-2024 End: 05-13-2024 take 2 tablets by mouth once daily Fluconazole 200 mg tablet Discontinued 400 MG PO Daily May 09, 2024 1:00am May 13, 2024 3:06pm glipiZIDE 10 mg oral tablet (9 sources) Sulfonylurea Start: 05-09-2024 End: 05-13-2024 take 1 tablet by mouth twice daily Glipizide 10 mg tablet Discontinued 10 MG PO Twice daily May 09, 2024 1:00am May 13, 2024 3:06pm End: 06-15-2024 take 1 tablet by mouth at dinner glipiZIDE (Glucotrol) 5 mg tablet Take 1 tablet (5 mg) by mouth. 5 mg at breakfast 10 mg at dinner 06/15/2024 Discontinued (Discontinued by another clinician) hydrALAZINE hydrochloride 50 mg oral tablet (20 sources) Arteriolar Vasodilator Start: 05-12-2024 End: 05-27-2024 take 1 tablet by mouth twice daily Hydralazine 50 mg Tablet Discontinued 50 MG PO Twice daily May 12, 2024 1:00am May 27, 2024 1:39pm Start: 03-20-2020 End: 06-15-2024 take 1 tablet by mouth three times daily Hydralazine 50 mg tablet Discontinued 50 MG PO Three times daily May 09, 2024 1:00am May 13, 2024 3:06pm Start: 03-20-2020 take 2 tablets by mo [facility] three times daily hydrALAZINE HCl - 50 MG Oral Tablet TAKE 2 TABLET 3 times daily Quantity: 0 Refills: 0 Ordered: 20-Mar-2020 DO Start : 20-Mar-2020 Active hydrALAZINE (Apr esoline) 50 MG tablet every 8 (eight) hours. Active 3 ml insulin aspart, human 100 unt/ml pen injector (2 sources) Insulin Analog Start: 12-16-2020 NovoLOG FlexPen 100 UNIT/ML Subcutaneous Solution Pen-injector Quantity: 5 Refills: 0 Ordered: 16-Dec-2020 DO Start : 16-Dec-2020 Active 24 hr isosorbide mononitrate 30 mg extended release oral tablet (5 sources) Nitrate Vasodilator Start: 05-12-2024 End: 05-27-2024 take 1 tablet by mouth once daily in the morning, then take 1 tablet by mouth every twenty-four hours Isosorbide Mononitrate 30 mg Tablet Extended Release 24 Hr Discontinued 30 MG PO Every morning May 12, 2024 1:00am May 27, 2024 1:39pm levoFLOXacin 750 mg oral tablet (5 sources) Quinolone Antimicrobial Start: 05-09-2024 End: 05-13-2024 take 1 tablet by mouth once daily Levofloxacin 750 mg tablet Discontinued 750 MG PO Daily May 09, 2024 1:00am May 13, 2024 3:06pm Multi Vitamin Oral Tablet (5 sources) take 1 tablet by mouth once daily Multi Vitamin Oral Tablet TAKE 1 TABLET DAILY. Quantity: 0 Refills: 0 Ordered: 22-Jan-2021 DO Active omeprazole 20 mg delayed release oral capsule (19 sources) Proton Pump Inhibitor Start: 01-14-2021 End: 06-15-2024 take 1 capsule by mouth once daily Omeprazole 20 mg capsule,delayed release(DR/EC) Discontinued 20 MG PO Daily May 09, 2024 1:00am May 27, 2024 1:39pm omeprazole OTC ( PriLOSEC OTC) 20 MG EC tablet 1 capsule 1 (one) time each day at the same time. Active sildenafil 100 mg oral tablet (3 sources) Phosphodiesterase 5 Inhibitor Start: 06-16-2023 End: 06-15-2024 take 1 tablet by mouth every hour sildenafil (Viagra) 100 mg tablet take 1 tablet by mouth 1 hour prior to intercourse if needed 06/16/2023 06/15/2024 Discontinued (Discontinued by another clinician) tacrolimus 0.001 mg/mg topical ointment (7 sources) Calcineurin Inhibitor Immunosuppressant Start: 08-10-2023 End: 08-09-2024 tacrolimus (Protopic) 0.1 % ointment 2 times a day. 10/08/2023 06/15/2024 Discontinued (Discontinued by another clinician) triamcinolone acetonide 1 mg/ml topical lotion (4 sources) Corticosteroid End: 06-15-2024 triamcinolone (Kenalog) 0.1 % lotion Apply topically 3 times a day. 06/15/2024 Discontinued (Discontinued by another clinician) Problems Active Problems Problem Classification Problem Date Documented Date Episodic/Chronic Allergic reactions (4 sources) Atopic dermatitis; Translations: [Other atopic dermatitis] 01-17-2024 Chronic Cardiac dysrhythmias (20 sources) Sick sinus syndrome; Translations: [Sinoatrial node dysfunction] Onset: 02-09-2023 02-10-2023 Chronic Chronic kidney disease (20 sources) Chronic kidney disease stage 4; Translations: [Chronic kidney disease, Stage IV (severe)] Onset: 02-09-2023 02-09-2023 Chronic Chronic obstructive pulmonary disease and bronchiectasis (8 sources) Chronic obstructive pulmonary disease, unspecified; Translations: [Chronic obstructive lung disease] Onset: 06-01-2022 05-20-2024 Chronic Conditions associated with dizziness or vertigo (4 sources) Dizziness and giddiness; Translations: [DIZZINESS AND GIDDINESS] Onset: 05-28-2022 Episodic Conduction disorders (20 sources) Mobitz type II atrioventricular block; Translations: [Mobitz (type) II atrioventricular block] Onset: 02-09-2023 Resolved: 03-01-2024 02-10-2023 Chronic Congestive heart failure; nonhypertensive (17 sources) Congestive heart failure; Translations: [Heart failure, unspecified] Onset: 05-09-2024 05-09-2024 Chronic Coronary atherosclerosis and other heart disease (2 sources) Atherosclerotic heart disease of [place] coronary artery without angina pectoris; Translations: [Old myocardial infarction] Onset: 06-01-2022 Chronic Deficiency and other anemia (1 source) Anemia; Translations: [Anemia, unspecified] 05-20-2024 Episodic Deficiency and other anemia (3 sources) Iron deficiency anemia; Translations: [Iron deficiency anemia, unspecified] 05-25-2024 Episodic Deficiency and other anemia (4 sources) Anemia, unspecified; Translations: [Anemia, unspecified] Onset: 05-20-2024 05-27-2024 Episodic Deficiency and other anemia (4 sources) Iron deficiency anemia, unspecified; Translations: [Iron deficiency anemia, unspecified] Onset: 06-29-2024 05-27-2024 Episodic Diabetes mellitus without complication (17 sources) Diabetes mellitus; Translations: [Diabetes mellitus without mention of complication, type II or unspecified type, not stated as uncontrolled] Onset: 06-01-2022 02-09-2023 Chronic Disorders of lipid metabolism (15 sources) Hyperlipidemia; Translations: [Other and unspecified hyperlipidemia] Onset: 06-01-2022 02-09-2023 Chronic Esophageal disorders (1 source) Gastro-esophageal reflux disease without esophagitis; Translations: [GERD WITHOUT ESOPHAGITIS] Onset: 06-01-2022 Chronic Essential hypertension (16 sources) Essential hypertension; Translations: [Unspecified essential hypertension] [...] 06-01-2022 10-11-2022 Chronic Other aftercare (1 source) 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 service (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) use of aspirin; Translations: [PENITENTIARY CURRENT USE OF ASPIRIN] Onset: 06-01-2022 Episodic Other aftercare (1 source) 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; Translations: [OTH MACHINE WORKER CURRENT DRUG THERAPY] Onset: 06-01-2022 Episodic Other inflammatory condition of skin (1 source) Psoriasis, unspecified; Translations: [PSORIASIS UNSPECIFIED] Onset: 06-01-2022 Chronic Other inflammatory condition of skin (5 sources) Psoriasis vulgaris; Translations: [Psoriasis vulgaris] Onset: 10-11-2022 10-11-2022 Chronic Other lower respiratory disease (3 sources) Interstitial lung disease; Translations: [Interstitial pulmonary disease, unspecified] 05-21-2024 Chronic Other lower respiratory disease (4 sources) Interstitial pulmonary disease, unspecified; Translations: [Postinflammatory pulmonary fibrosis] Onset: 06-29-2024 05-27-2024 Chronic Other lower respiratory disease (1 source) Personal history of pneumonia (recurrent); Translations: [PERSONAL HX OF PNEUMONIA RECURRENT] Onset: 06-01-2022 Episodic Other lower respiratory disease (2 sources) Snoring; Translations: [Snoring] 12-14-2023 Episodic Other lower respiratory disease (1 source) Radiologic infiltrate of lung ; Translations: [Other nonspecific abnormal finding of lung field] 05-20-2024 Episodic Other lower respiratory disease (1 source) Hemoptysis; Translations: [Hemoptysis] 05-20-2024 Episodic Other lower respiratory disease (4 sources) Hemoptysis; Translations: [Hemoptysis, unspecified] Onset: 05-20-2024 05-27-2024 Episodic Other lower respiratory disease (4 sources) Other nonspecific abnormal finding of lung field; Translations: [Other nonspecific abnormal finding of lung field] Onset: 06-29-2024 05-27-2024 Episodic Other non-epithelial cancer of skin (2 [...] Chronic Other nutritional; endocrine; and metabolic disorders (5 sources) Body mass index 30+ - obesity; Translations: [Body mass index (BMI) 33.0-33.9, adult] Onset: 08-25-2023 08-25-2023 Chronic Other nutritional; endocrine; and metabolic disorders (2 sources) Obesity caused by energy imbalance; Translations: [Other obesity due to excess calories] 12-14-2023 Chronic Other nutritional; endocrine; and metabolic disorders (3 sources) Hypomagnesemia; Translations: [Hypomagnesemia] 05-20-2024 Chronic Other nutritional; endocrine; and metabolic disorders (4 sources) Hypomagnesemia; Translations: [Disorders of magnesium metabolism] Onset: 05-20-2024 05-27-2024 Chronic Other nutritional; endocrine; and metabolic disorders (2 sources) Body mass index (BMI) 33.0-33.9, adult; Translations: [Body mass index (BMI) 33.0-33.9, adult] Onset: 08-25-2023 Chronic Other nutritional; endocrine; and metabolic disorders (2 sources) Overweight in adulthood with body mass index of 25 or more but less than 30; Translations: [Body mass index (BMI) 27.0-27.9, adult] Onset: 06-15-2024 06-15-2024 Episodic Other nutritional; endocrine; and metabolic disorders (2 sources) Body mass index (BMI) 27.0-27.9, adult; Translations: [Body mass index (BMI) 27.0-27.9, adult] Onset: 06-15-2024 Episodic Other skin disorders (2 sources) Seborrheic keratosis; Translations: [Other seborrheic keratosis] 01-17-2024 Episodic Other skin disorders (2 sources) Lentiginosis; Translations: [Other melanin hyperpigmentation] 01-17-2024 Episodic Becky-; endo-; and myocarditis; cardiomyopathy (except that caused by tuberculosis or sexually transmitted disease) (20 sources) Cardiomyopathy; Translations: [Other primary cardiomyopathies] Onset: 02-09-2023 02-10-2023 Chronic Residual codes; unclassified (10 sources) Obstructive sleep apnea syndrome; Translations: [Obstructive sleep apnea (adult) (pediatric)] 12-13-2023 Chronic Residual codes; unclassified (7 sources) Hypersomnia; Translations: [Hypersomnia, unspecified] Onset: 12-13-2023 12-13-2023 Chronic Residual codes; unclassified (7 sources) Periodic limb movement disorder; Translations: [Periodic limb movement disorder] Onset: 12-13-2023 12-13-2023 Chronic Residual codes; unclassified (4 sources) Obstructive sleep apnea (adult) (pediatric); Translations: [Obstructive sleep apnea (adult)(pediatric)] Onset: 05-20-2024 05-27-2024 Chronic Residual codes; unclassified (6 sources) Non-smoker; Translations: [Other specified health status] Onset: 02-10-2023 02-10-2023 Episodic Residual codes; unclassified (3 sources) Urinary catheter in situ; Translations: [Presence of other specified devices] 05-25-2024 Episodic Residual codes; unclassified (4 sources) Presence of other specified devices; Translations: [Other postprocedural status] Onset: 05-20-2024 05-27-2024 Episodic Residual codes; unclassified (2 sources) Lives in a penitentiary; Translations: [Other specified health status] Onset: 06-15-2024 06-15-2024 Episodic Residual codes; unclassified (2 sources) Other specified health status; Translations: [Other specified health status] Onset: 06-15-2024 Episodic Respiratory failure; insufficiency; arrest (adult) (5 sources) [id number] respiratory failure; Translations: [Acute and chronic respiratory failure with hypoxia] Onset: 05-20-2024 05-20-2024 Chronic Screening and history of mental health and substance abuse codes (6 sources) Ex-smoker; Translations: [Personal history of tobacco use] Onset: 06-01-2022 Episodic Comment on above: quit , 1 PPD; Unclassified (2 sources) Painful Urination Onset: 01-24-2024 Unclassified (8 sources) A [facility] screening has identified you as FRAIL [...] Four Ways to Beat the Frailty Risk [email or web address]- [email or web address]-pax ilty-[email or web address] 05-13-2024 Urinary tract infections (1 source) Acute cystitis with hematuria; Translations: [Acute cystitis with hematuria] Onset: 01-24-2024 Episodic Past or Other Problems Problem Classification Problem Date Documented Da te Episodic/Chronic Syncope (9 sources) Syncope; Translations: [Syncope and collapse] Onset: 02-09-2023 02-09-2023 Episodic Unclassified (4 sources) Onset: 02-10-2023 Resolved: 03-01-2024 02-10-2023 Results Test Name Value Interpretation Reference Range Facil ity Inpatient Patient Summaryon 07-24-2024 Inpatient Patient Summary Inpatient Patient Summary [place] [id number] Clinical Summary Person Information Name: LEIGHTON ARCINIEGA Age: 78 Years : 1945 Sex: Male PCP: Lori Medina MD Marital Status: Race: White Ethnicity: Non- or Language: Uzbek Visit Id: Visit Reason: BPH WITH URINARY OBSTRUCTION Speciality: Acuity: Enc Type: Outpatient Med Service: Surgery Arrival: 07/24/2024 09:40:55 Discharge: Dispo Type: Address: [address] [place] [address] [address] [place] [address] [phone] Provider Notes: Diagnosis: Anticoagulated; BPH with urinary obstruction; Other obstructive and reflux uropathy Problems Active Cloudy urine Obstructive sleep apnea syndrome Paroxysmal atrial fibrillation (02/09/2023) Right bundle branch block AND left anterior fascicular block (02/09/2023) Urinary retention Screening PSA (prostate specific antigen) Incomplete bladder emptying ED (erectile dysfunction) BPH with urinary obstruction Aspirin long-term use Anticoagulated Former smoker Urinary urgency Nocturia Hypercholesteremia [...] Status: Allergies metoprolol (Hypotension) Monopril (Dry cough) (Dyspnea) Tomatoes (rash) Strawberries (rash) fosinopril (Dry cough) (Shortness of breath) (Dyspnea) Laboratory or Other Results This Visit (last charted value for your 07/24/2024 visit) No Laboratory or Other Results This Visit Measurements: Height: Weight: Blood Pressure: Not Valued / Not Valued BMI: Procedures No Procedures Documented Immunizations No Immunizations Documented This Visit Final Med List: acetaminophen (Tylenol Extra Strength 500 mg oral tablet) 2 Tablets By Mouth every day as needed for pain. acetaminophen-hydrocod one ([place] 325 mg-5 mg oral tablet) 1 Tablets By Mouth every 6 hours. Take one tab by mouth 1 hour prior to procedure, then take 1 tab every 6 hours as needed for pain after procedure. Refills: 0. albuterol (albuterol 0.083% Inh Nasrin 3 mL) allopurinol (allopurinol 300 mg Tab) 1 Tablets By Mouth every day. apixaban (Eliquis 5 mg oral tablet) 1 Tablets By Mouth 2 times a day. aspirin (aspirin 325 mg Tab) 1 Tablets By Mouth every day. bumetanide (bumetanide 0.5 mg Tab) 1 Tablets By Mouth every day. calcium-vitamin D (calcium-vitamin D 600 mg-400 intl units oral tablet) 1 Tablets By Mouth every day. carvedilol 3.125 Milligram By Mouth 2 times a day. cephalexin (cephalexin 500 mg Cap) 1 Capsules By Mouth 2 times a day for 7 Days. Refills: 0. cyanocobalamin (cyanocobalamin 1000 mcg Tab) 2 Tablets By Mouth every day. cyanocobalamin (Vitamin B12 1000 mcg Tab) By Mouth every day. diazepam (Valium 10 mg Tab) 1 Tablets By Mouth Once. Take 30 minutes prior to procedure. You must have a driver medic.. Refills: 0. finasteride (finasteride 5 mg Tab) 1 Tablets By Mouth every day. Refills: 11. hydrALAZINE (hydrALAZINE 50 mg Tab) 2 Tablets By Mouth 3 times a day. insulin glargine (Lantus) Subcutaneous every day. isosorbide mononitrate By Mouth. multivitamin (Multi Vitamins oral tablet) 1 Tablets By Mouth every day. omeprazole (omeprazole 20 mg Cap-DR) 1 Capsules By Mouth every day. potassium chloride 10 Milliequivalent By Mouth. semaglutide (Ozempic (1 mg dose)) 1 Milligram [...] Tablets By Mouth 2 times a day. sulfamethoxazole-trime thoprim (Bactrim 400 mg-80 mg Tab) 1 tab By Mouth every 12 hours for 7 Days. Refills: 0. terazosin (terazosin 10 mg Cap) 1 Capsules By Mouth once a day (at bedtime). Refills: 3. tuberculin purified protein derivative (Aplisol 5 TU/0.1 mL Injection) Intradermal Once. Care Team Members: Attending Physician: Mica Car MD Consulting Physician: Referring Physician: Mica Car MD Follow up: With: Address: When: Mica Car Comments: Office to schedule follow up: 1) Nursing visit in 1 week for gomez removal, fill/pull voiding trial. 2) Dr. Car in 1 month for PVR Type Location Start Finish State NCV Pacemaker (FT) FT.CARDIO 12/28/2024 1:00 PM 12/28/2024 1:15 PM Confirmed Patient Education Information: Josep - (more content not included)... Normal [facility] Main OR Intraoperative Recor yovanny 07-24-2024 Main OR Intraoperative Record Main OR Intraoperative Record IntraOp Document Type FTURO Summary Primary Physician: Mica Car MD Finalized Date/Time: 07/24/24 11:00:25 Pt. Name: LEIGHTON ARCINIEGA /Sex: 1945 Male Med Rec #: [id number] Physician: Miac Car MD Financial #: [id number] Pt. Type: O Room/Bed: / Admit/Disch: 07/24/24 09:40:55 - Institution: Case Times FTURO Entry 1 Patient Times In Room 07/24/24 10:38:00 Out Room 07/24/24 10:58:00 Procedure Times Start 07/24/24 10:43:00 Stop 07/24/24 10:53:00 Anesthesia Times Last Modified By: Jocy Corral 07/24/24 11:00:19 Case Attendance FTURO Entry 1 Entry 2 Entry 3 Case Attendee Mica Car MD, Kelsie E Troike, Kendall R Role Performed Surgeon - Primary Tool Crib Clerk - Primary Scrub - Primary Time In 07/24/24 10:38:00 07/24/24 10:38:00 07/24/24 10:38:00 Time Out 07/24/24 10:58:00 07/24/24 10:58:00 07/24/24 10:58:00 Procedure CYSTOSCOPY LOCAL CYSTOSCOPY LOCAL CYSTOSCOPY LOCAL UROLIFT(.) UROLIFT(.) UROLIFT(.) Comments Last Modified By: Jocy Corral Kelsie E Burgderfer, Kelsie E 07/24/24 11:00:20 07/24/24 11:00:20 07/24/24 11:00:20 Surgical Procedures FTURO Entry 1 Procedure Description Procedure CYSTOSCOPY LOCAL UROLIFT Modifiers . Surgeon Description CYSTO UROLIFT Primary Procedure Yes Primary Surgeon Mica Car MD Start 07/24/24 10:43:00 Stop 07/24/24 10:53:00 Anesthesia Type Local Surgical Service Urology Wound Class 2 - Clean-Contaminated Last Modified By: Jocy Corral 07/24/24 11:00:21 General Case Data FTURO Pre-Care Text: Classifies surgical wound, implements aseptic technique, initiates traffic control Entry 1 Case Information OR URO 1 FT Case Level None Wound Class 2 - Clean-Contaminated Specialty Urology Preop Diagnosis BPH WITH URINARY Postop Same As Preop Yes OBSTRUCTION Postop Diagnosis BPH WITH URINARY Outcomes Met? Yes OBSTRUCTION Last Modified By: Jocy Corral 07/24/24 10:41:52 Post-Care Text: The patient is free from signs and symptoms of infection EU IntraOp - FTURO Pre-Care Text: Implements protective measures prior to operative or invasive procedure, confirms identity before the operative or invasive procedure, verifies operative procedure, surgical site, and laterality Entry 1 EU Perioperative Protocols Procedure(s) CYSTOSCOPY LOCAL Patient Identity Birthday, ID Band UROLIFT(.) Verified (select at Check, Patient least 2): Participation Consents / H and P H&P, Surgery/Procedure Surgical Site Yes Verified Consent Verified Laterality Verified n/a Procedure Verified Yes Correct Patient Yes Availability Equipment, Implant, Position Verified Verified (If Medication Applicable) Time Out Josep SANDHU, Mica Johns, Time Out Complete 07/24/24 10:41:00 Participants Jocy Corral, Micky Becerra Allergies Reviewed? Yes Allergies Reviewed Self/Patient With Body Position High Lithotomy Prep Area PENIS Prep Agents Betasept Skin. Condition Unable to Visualize Description N/A Additional None Specimens Comment N/A Specimens Collected Vitals - EU Blood Pressure 137/73 Pulse 58 bpm Respirations 18 br/min SPO2 98 % EBL 0 I&O - EU Total Intake 0 mL Total Output 0 mL Outcomes Met? Yes Last Modified By: Jocy Corral 07/24/24 10:46:36 Post-Care Text: The patient is free from signs and symptoms of injury caused by extraneous objects Implant Log FTURO Pre-Care Text: Records devices implanted during the operative or invasive procedure Entry 1 Implant/Explant Implant Implant Identification Description UROLIFT Lot Number [id number] Pilot Plant Technician UROLIFT Catalog ???# UL2-C Expiration Date 08/10/25 Usage Data Implant Site PROSTATE Quantity 6 Outcomes Met? Yes Last Modified By: Jocy Corral 07/24/24 10:51:57 Post-Care Text: The patient is free from [...] name), if applicable addressed Sign Out Complete 07/24/24 10:53:00 Last Modified By: Jocy Corral 07/24/24 10:53:33 Case Comments Finalized By: Jocy Corral Document Signatures Signed By: Jocy Corral 07/24/24 11:00 [facility] Main OR Preoperative Recordo n 07-24-2024 Main OR Preoperative Record Main OR Preoperative Record Holding Area Document Type FTURO Summary Primary Physician: Mica Car MD Finalized Date/Time: 07/24/24 10:42:53 Pt. Name: LEIGHTON ARCINIEGA Tyrese Funes./Sex: 1945 Male Med Rec #: [id number] Physician: Mica Car MD Financial #: [id number] Pt. Type: O Room/Bed: / Admit/Disch: 07/24/24 09:40:55 - Institution: Case Times Holding FTURO Pre-Care Text: Verifies consent for planned procedure, identifies individual values and wishes concerning care, includes family members in perioperative teaching Secures patient's records' belongings, and valuables, maintains patient's dignity and privacy, and maintains patient confidentiality Entry 1 In Holding 07/24/24 10:14:00 Outcomes Met? Yes Last Modified By: Latha David LPN 07/24/24 10:14:02 Post-Care Text: The patient participates in decisions affecting his or her perioperative plan of care The patient's right to privacy is maintained Surgery Checklist FTURO Entry 1 Patient Birthday, ID Band Procedure Surgical Consent, With Identification: Check, Patient Verification: Patient Participation NPO after Midnight: n/a Personal Items: Glasses Personal Items hearing aides b/l , Limitations: up ad buzz Comment: oxygen Complaints of Pain: No Skin Integrity Intact, [place], Warm, & Dry Vitals - EU Blood Pressure 137/73 Pulse 58 bpm Respirations 18 br/min SPO2 98 % Additional None RN Reviewed Yes Specimens Collected Last Modified By: Jocy Corral 07/24/24 10:42:52 Finalized By: Jocy Corral Document Signatures Signed By: Latha David LPN 07/24/24 10:15 Jocy Corral 07/24/24 10:42 Unfinalized History Date/Time Username Reason for Unfinalizing Freetext Reason for Unfinalizing 07/24/24 10:42 [id number] Adding Additional Data Normal [facility] Operative Reporton Operative Report Operative Report Patient: LEIGHTON ARCINIEGA Age: 78 years Sex: Male : 1945 Associated Diagnoses: None Author: Mica Car MD Procedure Operative Information Details: Date/ Time: 07/24/2024 10:57:00. Pre-Op Dx: BPH w/ LUTS - N40.1. Post-Op Dx: Same. Anesthesia Type: Local. Procedure: Cystoscopy with UroLift Prostatic Urethral Lift. Complications: None. Risks/Benefits/Informe d Consent: Surgical risks, benefits, details of the procedure have been explained to the patient, Full informed consent has been obtained. Intraoperative Information INDICATIONS: 78-year-old male with benign prostatic hyperplasia and bothersome voiding symptoms including obstruction. Specifically, the patient has an IPSS of 35 due to being catheter dependent, post-void residual volume (PVR) of 530 ml, and serum PSA level of 1.6 ng/ml. TRUS showed a 58 gram prostate, CT scan close to 80 g. Office cystoscopy demonstrates severe bilateral lateral lobe obstruction without median lobe component. His symptoms have failed to improve on medical therapy (alpha blockers and finasteride). After discussion of surgical treatment options, the patient elected a prostatic urethral lift procedure in which permanent transprostatic implants are installed to create a wider channel by which to void. Other surgical alternatives were rejected due to known adverse side effects. PROCEDURE: Patient received local anesthesia: 10 mg diazepam 45 min prior, 33 cc 2% lidocaine gel to urethra; penile clamp installed for 30 min dwell prior to procedure. Additional 11ml lidocaine gel inserted per urethra after clamp removed and patient prepped/draped in the usual sterile fashion. A 20F cystoscope was inserted into the bladder. The cystoscopy bridge was replaced with a UroLift UL-2 delivery device. The first treatment site was the patient's left side approximately 1.5 cm distal to the bladder neck. The distal tip of the delivery device was then angled anterior laterally approximately 10 degrees at this position to compress the lateral lobe. The trigger was pulled, thereby deploying a needle containing the implant through the prostate. The implant was additionally compressed for total 20 degrees, trigger pulled and needle was then retracted, allowing one end of the implant to be delivered to the capsular surface of the prostate. The implant was then tensioned to assure capsular seating and removal of slack monofilament. The device was then angled back toward midline and slowly advanced proximally (typically 3 to 4 mm) until cystoscopic verification of the monofilament being centered in the delivery bay. The urethral end piece was then affixed to the monofilament thereby tailoring the size of the implant. Excess filament was then severed. The delivery device was then re-advanced into the bladder. The same procedure was then repeated on the right side, and two additional implants were delivered just proximal to the verumontanum, again one on right and one on left side of the prostate, following a similar technique. Cystoscopy then revealed a persistent area of obstruction, and two more implants were delivered in the mid prostate. A final cystoscopy was conducted first to inspect the location and state of each implant and second, to confirm the presence of a continuous anterior channel was present through the prostatic urethra with irrigation flow turned off. All instruments were removed. An 18Fr coude gomez catheter was inserted due to history of retention, 10 cc in balloon. The bladder was irrigated until clear. The patient tolerated the procedure well without complication. 6 implants attempted, 6 seated. . Postoperative Information Discharge: The patient tolerated the procedure well and was subsequently discharged home, Follow up in 1 week for fill/pull voiding trial, catheter removal. Follow up with Dr. Car in 1 month for PVR. . Normal [facility] Comment on above: Result Comment: Elec tronically Signed By: Mica Car MD\.br\Date and Time Signed: 07/24/24 11:02 EDT Outpatient Surgery Discharge Instructionon 07-24-2024 Outpatient Surgery Discharge Instruction Outpatient Surgery Discharge Instruction [address] [address] Patient Discharge Instructions PERSON INFORMATION Name: LEIGHTON ARCINIEGA Date of : 1945 Current Date: 07/24/2024 10:56:50 PHYSICIANS Admitting Physician: Mica Car MD Comment: Discharge Diagnosis: Anticoagulated; BPH with urinary obstruction; Other obstructive and reflux uropathy LEIGHTON ARCINIEGA has been given the following list of follow-up instructions, prescriptions, and patient education materials: IF UNABLE TO CONTACT YOUR PHYSICIAN AND YOU FEEL IT IS AN EMERGENCY, GO TO THE NEAREST EMERGENCY ROOM OR CALL 911 Follow up: With: Address: When: Mica Car Comments: Office to schedule follow up: 1) Nursing visit in 1 week for gomez removal, fill/pull voiding trial. 2) Dr. Car in 1 month for PVR Type Location Start Finish State NCV Pacemaker (FT) FT.CARDIO 12/28/2024 1:00 PM 12/28/2024 1:15 PM Confirmed Comment: PATIENT EDUCATION INFORMATION Instructions: [facility] [place], [place] Post-Operative Instructions for UroLift After your procedure it is normal to have: Gross Hematuria (blood in the urine) You may even notice blood clots in your urine. A small amount of blood may apppear to be a lot of blood in your urine as it is diluted. Restarting your blood thinner, increased activity and heavy lifting could increase the amount of bleeding. The bleeding may be sporadic (off and on) over the next 2-3 weeks. Ensure you are hydrating to assist in flushing the blood to prevent voiding complications. In the event you are unable to void, please reach out to our office. If the office is closed, you will need to report to the local emergency room. Blood in your semen and stool may be present. The blood in your semen is not harmful to you or your partner. This will resolve with time. Frequency/urgency/burn ing with urination is very common. This is due to irritation from your procedure. These symptoms do not indicate that your procedure was unsuccessful or that there is an infection. Ensure you are hydrating! You may try AZO over the counter as needed for urinary discomfort. Pain/discomfort are normal as well. There has been a non-narcotic prescription sent to your pharmacy. You may alternate this prescription with over the counter Ibuprofen. Your pain and discomfort should improve within a few days. When do I need to call the office? We ask that you reach out to the office if you experience a temperature of 100.4 ??? F or higher, excessive urinary bleeding, symptoms of infection, inability to urinate or uncontrolled pain. If the office is closed, you may need to present to the local emergency department. Gomez catheter If you have a catheter and will remove it at home, you may do so the next day if urine is clear and no longer red/pink in color. If urine is red, wait until clear to remove the catheter. See attached instructions for removal. Postop UroLift Instructions ??? Complete your antibiotic as instructed. ??? Remain on all your urinary medication until follow up. ??? Take your pain madications and AZO as needed. ??? Resume any blood thinners 48 hour post procedure. ??? Continue to hydrate! ??? Minimize your activity for 72-96 hours post procedure. ??? If you are prescribed Oxybutynin for bladder spasms, you may take this medication every 8 hours as needed. This medication may cause dry mouth/eyes and constipation. Taking an over the counter stool softener and drinking plenty of water will help with side effects. Gomez Catheter Removal Your healthcare provider has instructed you to remove your Gomez catheter. This is a thin, flexible tube that allows urine to drain out of your bladder and into a bag. It is important to properly remove your catheter to prevent infection and other complications. If you have any questions about removing the Gomez catheter, ask your healthcare provider before trying to remove it. Otherwise, follow the instructions on this sheet. Gomez Catheter The Gomez catheter is held in place by a small balloon that is filled with water. To remove the catheter, you must first drain the water from the balloon. This is done using a syringe and the balloon port. This is the opening in the catheter that is not attached to the bag. It allows you to get to the balloon. Instructions for Removing the Catheter Follow the directions closely. Note: If the catheter does not come out with gentle pulling, stop and call your healthcare provider right away. ??? Empty the bag of urine if needed. ??? Wash your hands with soap and warm water. Dry them well. ??? Gather your supplies. This includes a syringe that was given to you by your healthcare provider, a wastebasket, and a towel. ??? Put the syringe into the balloon por (more content not included)... Normal [facility] C Urineon 07-20-2024 Bacteria identified Cx Nom (U) Microbiology PROCEDURE: Urine Culture [R1] SOURCE: U Cath BODY SITE: COLLECTED DATE/TIME: 07/17/2024 14:24 EDT RECEIVED DATE/TIME: 07/18/2024 17:37 EDT START DATE/TIME: 07/18/2024 17:37 EDT FREE TEXT SOURCE: cath GREGORY Sr APRN-C, Orzech KARLA, ADJUNCT PROFESSOR OF ENGLISH-C, Anna X Anna X FINAL REPORTS Final Report [] Verified Date/Time: 07/20/2024 10:40 EDT >100,000 cfu/ml Klebsiella pneumoniae ESBL SUSCEPTIBILITY RESULTS __ LEGEND: S=Susceptible, N/R=Not Reported, Blank=Data not available, or drug not advisable or tested, I=Intermediate, ESBL=Extended spectrum beta-lactamase, R=Resistant, TFG=Thymidine-dependen t strain, STALIN=Beta-lactamase positive, HIRAM=mcg/m;(mg/L), S*=Predicted susceptible interp, R*=Predicted resistant interp KlepneESBL Antibiotic HIRAM Dilutn HIRAM Interp Ampicillin >16 R* Ampicillin/ >16/8 R Sulbactam Aztreonam >16 ESBL Cefazolin >16 R* Cefepime >16 R* Ceftazidime >16 ESBL Ceftazidime/ <=8 S Avibactam Ceftriaxone >2 ESBL Cefuroxime >16 R* Ciprofloxacin >2 R Ertapenem <=0.5 S Gentamicin >8 R Levofloxacin >4 R Meropenem <=1 S Nitrofurantoin 64 I Piperacillin/ 16 S Tazobactam Tetracycline 8 I Tobramycin >8 R Trimethoprim/ <=2/38 S Sulfa Performing Locations R1: This test was performed at: [facility], [address] [place] [address], [address] , , [facility] Comment on above: Performed By: #### 2 [id number] #### [facility] [address] [place] [address] Ambulatory Visit Summaryon 0 07-11-2024 Ambulatory Visit Summary Ambulatory Visit Summary LEIGHTON ARCINIEGA :1945 Visit Date:07/11/2024 Ambulatory Visit Instructions Your Diagnosis Urinary retention Your Care Team Attending Physician - MICHAEL Sr APRN, Anna Herrera Primary Care Physician - Lori Medina MD This Is Your Medications List acetaminophen (Tylenol Extra Strength 500 mg oral tablet) acetaminophen-hydrocod one ([place] 325 mg-5 mg oral tablet) albuterol (albuterol 0.083% Inh Nasrin 3 mL) allopurinol (allopurinol 300 mg Tab) apixaban (Eliquis 5 mg oral tablet) aspirin (aspirin 325 mg Tab) bumetanide (bumetanide 0.5 mg Tab) calcium-vitamin D (calcium-vitamin D 600 mg-400 intl units oral tablet) carvedilol cyanocobalamin (Vitamin B12 1000 mcg Tab) cyanocobalamin (cyanocobalamin 1000 mcg Tab) diazepam (Valium 10 mg Tab) finasteride (finasteride 5 mg Tab) hydrALAZINE (hydrALAZINE 50 mg Tab) insulin glargine (Lantus) isosorbide mononitrate multivitamin (Multi Vitamins oral tablet) omeprazole (omeprazole 20 mg Cap-DR) potassium chloride semaglutide (Ozempic (1 mg dose)) sildenafil (sildenafil 100 mg Tab) simvastatin (simvastatin 20 mg Tab) spironolactone (spironolactone 25 mg Tab) terazosin (terazosin 10 mg Cap) tuberculin purified protein derivative (Aplisol 5 TU/0.1 mL Injection) Procedures Performed Cystoscopy (05/18/2024), Pacemaker (08/15/2016), Arthroscopy of knee, Colonoscopy, Ring finger Amputation, Tonsillectomy. What to do next Scheduled Follow-Up Appointments Wednesday 10:30 AM EDT Where: [facility] Wednesday 10:30 AM EDT Where: [facility] 2024 1:00 PM EDT Where: [facility] Medications What How Much When Instructions Unchanged acetaminophen (Tylenol Extra Strength 500 mg oral tablet) 2 Tablets By Mouth Every day as needed for for pain Unchanged acetaminophen-hydrocod one ([place] 325 mg-5 mg oral tablet) 1 Tablets By Mouth Every 6 hours Take one tab by mouth 1 hour prior to procedure, then take 1 tab every 6 hours as needed for pain after procedure Unchanged albuterol (albuterol 0.083% Inh Nasrin 3 mL) Unchanged allopurinol (allopurinol 300 mg Tab) 1 Tablets By Mouth Every day Unchanged apixaban (Eliquis 5 mg oral tablet) 1 Tablets By Mouth 2 times a day Unchanged aspirin (aspirin 325 mg Tab) 1 Tablets By Mouth Every day Unchanged bumetanide (bumetanide 0.5 mg Tab) 1 Tablets By Mouth Every day Unchanged calcium-vitamin D (calcium-vitamin D 600 mg-400 intl units oral tablet) 1 Tablets By Mouth Every day Unchanged carvedilol 3.125 Milligram By Mouth 2 times a day Unchanged cyanocobalamin (cyanocobalamin 1000 mcg Tab) 2 Tablets By Mouth Every day Unchanged cyanocobalamin (Vitamin B12 1000 mcg Tab) By Mouth Every day Unchanged diazepam (Valium 10 mg Tab) 1 Tablets By Mouth Once Take 30 minutes prior to procedure. You must have a driver medic. Unchanged finasteride (finasteride 5 mg Tab) 1 Tablets By Mouth Every day Unchanged hydrALAZINE (hydrALAZINE 50 mg Tab) 2 Tablets By Mouth 3 times a day Unchanged insulin glargine (Lantus) Subcutaneous Every day Unchanged isosorbide mononitrate By Mouth Unchanged multivitamin (Multi Vitamins oral tablet) 1 Tablets By Mouth Every day Unchanged omeprazole (omeprazole 20 mg Cap-DR) 1 Capsules By Mouth Every day Unchanged potassium chloride 10 Milliequivalent By Mouth Unchanged semaglutide (Ozempic (1 mg dose)) 1 Milligram Subcutaneous Every week Unchanged sildenafil (sildenafil 100 mg Tab) 1 Tablets By Mouth As Directed as needed for for erectile dysfunction Take one tab 1 hour prior to sexual activity. Unchanged simvastatin (simvastatin 20 mg Tab) 0.5 Tablets By Mouth Once a day (at bedtime) Unchanged spironolactone (spironolactone 25 mg Tab) 2 Tablets By Mouth 2 times a day Unchanged terazosin (terazosin 10 mg Cap) 1 Capsules By Mouth Once a day (at bedtime) Unchanged tuberculin purified protein derivative (Aplisol 5 TU/ 0.1 mL Injection) Intradermal Once Allergies Monopril (Dyspnea, Dry cough) Strawberries (rash) Tomatoes (rash) fosinopril (Dyspnea, Dry cough, Shortness of breath) metoprolol (Hypotension) Problems Ongoing - Any problem that you are currently receiving treatment for. Anticoagulated Arthritis Aspirin long-term use BPH with urinary obstruction CKD (chronic kidney disease) stage 3, GFR 30-59 ml/min Cloudy urine Diabetes ED (erectile dysfunction) Emphysema/COPD Epidermal cyst Extreme obesity Former smoker Heart disease Hx of migraine headaches Hypercholesteremia Incomplete bladder emptying Kidney stones Myocardial infarct Nocturia Obstructive sleep apnea syndrome Paroxysmal atrial fibrillation Right bundle branch block AND left anterior fascicular block Screening PSA (prostate specific antigen) Seborrheic keratoses SSS (sick sinus syndrome) Urinary retention Urinary urgency Historical (more content not included)... Normal [facility] Anisocytosis LM Ql (Bld)Orde red By: Richard Zamora on 06-29-2024 Anisocytosis Ql (Bld) Anisocytosis [Presence] in Blood by Light microscopy [facility] Basic Metabolic Panelon 06-20 Anion gap [Moles/Vol] 12.9 mmol/L Normal 6.0-15.0 [facility] Comment on above: Performed By: #### B MP ####[address] [address] [facility] Calcium [Mass/Vol] 9.6 mg/dL Normal 8.6-10.3 [facility] Comment on above: Result Comment: PERF ORMED BY: [facility] [address] [facility]ERYanetAnisa [place] [id number] PATHOLOGIST MANAGER POOL DEMOND ESCOBAR M.D. Performed By: #### B MP ####[address] [address] [facility] Chloride [Moles/Vol] 98 mmol/L Normal 98-107 [facility] Comment on above: Performed By: #### B MP ####[address] [address] [facility] CO2 [Moles/Vol] 29.7 mmol/L Normal 21.0-31.0 [facility] Comment on above: Performed By: #### B MP ####[place] [id number] [facility] Creatinine [Mass/Vol] 2.06 mg/dL High 0.70-1.30 [facility] Comment on above: Performed By: #### B MP ####[address] [address] [facility] Estimated GFR 32.364 mL/Min Normal [facility] Comment on above: Performed By: #### B MP ####[place] [id number] [facility] Glucose [Mass/Vol] 130 mg/dL High 70-100 [facility] Comment on above: Result Comment: Victor om Glucose Reference Range is dependent on time and content of last meal. Glucose of more than 200 mg/dL in a nonstressed, ambulatory subject supports the diagnosis of Diabetes Mellitus. ADA recommended reference range Performed By: #### B MP ####[facility] [place] [id number] [facility] Potassium [Moles/Vol] 4.6 mmol/L Normal 3.5-5.1 [facility] Comment on above: Performed By: #### B MP ####[place] [id number] [address] Sodium [Moles/Vol] 136 mmol/L Normal 136-145 [facility] Comment on above: Performed By: #### B MP ####[facility] [place] [id number] [facility] Urea nitrogen [Mass/Vol] 36 mg/dL High 7-25 [facility] Comment on above: Performed By: #### B MP ####[place] [id number] [address] Basophils Auto (Bld) [#/Vol] Ordered By: Richard Zamora on 06-29-2024 Basophils (Bld) [#/Vol] Automated basophil count 0.0-0.2 [facility] Basophils/100 WBC Auto (Bld) Ordered By: Richard Zamora on 06-29-2024 Basophils/100 WBC (Bld) Automated basophil % . [facility] Calcium [Mass/volume] in Ser um or PlasmaOrdered By: Richard Zamora on 06-29-2024 Calcium [Mass/Vol] Calcium [Mass/volume ] in Serum or Plasma 8.6-10.3 [facility] Carbon dioxide, total [Moles /volume] in Serum or PlasmaOrdered By: Richard Zamora on 06-29-2024 CO2 [Moles/Vol] Carbon dioxide, tota l [Moles/volume] in Serum or Plasma 21.0-31.0 [facility] Chloride [Moles/volume] in S chelo or PlasmaOrdered By: Richard Zamora on 06-29-2024 Chloride [Moles/Vol] Chloride [Moles/volume] in Serum or Plasma 98-107 [facility] Creatinine [Mass/volume] in Serum or PlasmaOrdered By: Richard Zamora on 06-29-2024 Creatinine [Mass/Vol] Creatinine [Mass/volume] in Serum or Plasma High 0.70-1.30 [facility] Eosinophils Auto (Bld) [#/Vo l]Ordered By: Richard Zamora on 06-29-2024 Eosinophils (Bld) [#/Vol] Automated eosinophil count 0.0-0.45 [facility] Eosinophils/100 WBC Auto (Bl d)Ordered By: Ricahrd Zamora on 06-29-2024 Eosinophils/100 WBC (Bld) Automated eosinophil % . [facility] Erythrocyte distribution wid th Auto (RBC) [Ratio]Ordered By: Richard Zamora on 06-29-2024 Erythrocyte distribution width (RBC) [Ratio] Erythrocyte distribution width [Ratio] by Automated count High 12.0-14.8 [facility] Erythrocyte morphology findi ng [Identifier] in BloodOrdered By: Richard Zamora on 06-29-2024 RBC morphology finding Nom (Bld) RBC morphology [facility] Glucose [Mass/volume] in Ser um or PlasmaOrdered By: Richard Zamora on 06-29-2024 Glucose [Mass/Vol] Glucose [Mass/volume ] in Serum or Plasma High 70-100 [facility] Comment on above: ADA recommended refe rence rangeRandom Glucose Reference Range is dependent on time and content of last meal. Glucose of more than 200 mg/dL in a nonstressed, ambulatory subject supports the diagnosis of Diabetes Mellitus. Hematocrit Auto (Bld) [Volum e fraction]Ordered By: Richard Zamora on 06-29-2024 Hematocrit (Bld) [Volume fraction] Hematocrit [Volume Fraction] of Blood by Automated count Low 38.8-50.0 [facility] Hemoglobin [Mass/volume] in BloodOrdered By: Richard Zamora on 06-29-2024 Hemoglobin (Bld) [Mass/Vol] Hemoglobin [Mass/volume] in Blood Low 13.0-17.0 [facility] Hypochromia LM Ql (Bld)Order ed By: Richard Zamora on 06-29-2024 Hypochromia Ql (Bld) Hypochromia [Presen ce] in Blood by Light microscopy [facility] Leukocytes [#/volume] correc gabrielle for nucleated erythrocytes in Blood by Automated counOrdered By: Richard Zamora on 06-29-2024 WBC corrected for nucl RBC Auto (Bld) [#/Vol] Leukocytes [#/volume] corrected for nucleated erythrocytes in Blood by Automated coun 4.1-10.5 [facility] Lymphocytes Auto (Bld) [#/Vo l]Ordered By: Richard Zamora on 06-29-2024 Lymphocytes (Bld) [#/Vol] Lymphocytes [#/volume] in Blood by Automated count 1.00-4.8 [facility] Lymphocytes/100 WBC Auto (Bl d)Ordered By: Richard Zamora on 06-29-2024 Lymphocytes/100 WBC (Bld) Lymphocytes/100 leukocytes in Blood by Automated count . [facility] MCH Auto (RBC) [Entitic mass ]Ordered By: Richard Zamora on 06-29-2024 MCH (RBC) [Entitic mass] MCH [Entitic mass] by Automated count 27.5-35.2 [facility] MCHC Auto (RBC) [Mass/Vol]Or dered By: Richard Zamora on 06-29-2024 MCHC (RBC) [Mass/Vol] MCHC [Mass/volume] by Automated count 32.5-35.6 [facility] MCV Auto (RBC) [Entitic vol] Ordered By: Richard Zamora on 06-29-2024 MCV (RBC) [Entitic vol] MCV [Entitic volume] by Automated count 83.5-101 [facility] Microcytes LM Ql (Bld)Ordere d By: Richard Zamora on 06-29-2024 Microcytes Ql (Bld) Microcytes [Presence ] in Blood by Light microscopy [facility] Monocytes Auto (Bld) [#/Vol] Ordered By: Richard Zamora on 06-29-2024 Monocytes (Bld) [#/Vol] Automated blood monocyte count High 0.0-0.8 [facility] Monocytes/100 WBC Auto (Bld) Ordered By: Richard Zamora on 06-29-2024 Monocytes/100 WBC (Bld) Automated monocyte % . [facility] Neutrophils Auto (Bld) [#/Vo l]Ordered By: Richard Zamora on 06-29-2024 Neutrophils (Bld) [#/Vol] Neutrophils [#/volume] in Blood by Automated count 1.8-7.7 [facility] Neutrophils/100 WBC Auto (Bl d)Ordered By: Richard Zamora on 06-29-2024 Neutrophils/100 WBC (Bld) Automated neutrophil % . [facility] No Panel InformationOrdered By: Richard aZmora on 06-29-2024 Estimated GFR (CKD-EPI) 32.364 mL/Min [facility] Creatinine Clearance (Chem N/A [facility] Nucleated erythrocytes [Pres ence] in Blood by Automated countOrdered By: Richard Zamora on 06-29-2024 Nucleated RBC Auto Ql (Bld) Nucleated erythrocytes [Presence] in Blood by Automated count 0-0.5 [facility] Platelet adequacy [Presence] in Blood by Light microscopyOrdered By: Richard Zamora on 06-29-2024 Platelets LM Ql (Bld) Platelet adequacy [Presence] in Blood by Light microscopy Normal [facility] Platelet mean volume Auto (B ld) [Entitic vol]Ordered By: Richard Zamora on 06-29-2024 Platelet mean volume (Bld) [Entitic vol] Platelet mean volume [Entitic volume] in Blood by Automated count Low 6.6-10.1 [facility] Platelet morphology finding [Identifier] in BloodOrdered By: Richard Zamora on 06-29-2024 Platelet morphology finding Nom (Bld) Platelet morphology finding [Identifier] in Blood Normal [facility] Platelets Auto (Bld) [#/Vol] Ordered By: Richard Zamora on 06-29-2024 Platelets (Bld) [#/Vol] Platelets [#/volume] in Blood by Automated count 150-450 [facility] Polychromasia [Presence] in Blood by Light microscopyOrdered By: Richard Zamora on 06-29-2024 Polychromasia LM Ql (Bld) Polychromasia [Presence] in Blood by Light microscopy [facility] Potassium [Moles/volume] in Serum or PlasmaOrdered By: Richard Zamora on 06-29-2024 Potassium [Moles/Vol] Potassium [Moles/volume] in Serum or Plasma 3.5-5.1 [facility] RBC Auto (Bld) [#/Vol]Ordere d By: Richard Zamora on 06-29-2024 RBC (Bld) [#/Vol] Erythrocytes [#/volume] in Blood by Automated count Low 3.90-5.60 [facility] Scan and CBCon 06-29-2024 Anisocytosis Ql (Bld) Moderate Normal [facility] Comment on above: Performed By: #### G LULS #### Point of Care testing , Basophils (Bld) [#/Vol] 0.1 10*3/uL Normal 0.0-0.2 [facility] Comment on above: Performed By: #### G LULS #### Point of Care testing , Basophils/100 WBC (Bld) 0.6 % Normal . [facility] Comment on above: Performed By: #### G LULS #### Point of Care testing , Eosinophils (Bld) [#/Vol] 0.1 10*3/uL Normal 0.0-0.45 [facility] Comment on above: Performed By: #### G LULS #### Point of Care testing , Eosinophils/100 WBC (Bld) 0.6 % Normal . [facility] Comment on above: Performed By: #### G LULS #### Point of Care testing , Erythrocyte distribution width (RBC) [Ratio] 17.4 % High 12.0-14.8 [facility] Comment on above: Performed By: #### G LULS #### Point of Care testing , Hematocrit (Bld) [Volume fraction] 31.0 % Low 38.8-50.0 [facility] Comment on above: Performed By: #### G LULS #### Point of Care testing , Hemoglobin (Bld) [Mass/Vol] 10.6 g/dL Low 13.0-17.0 [facility] Comment on above: Performed By: #### G LULS #### Point of Care testing , Hypochromasia Slight Normal [facility] Comment on above: Performed By: #### G LULS #### Point of Care testing , Lymphocytes (Bld) [#/Vol] 1.4 10*3/uL Normal 1.00-4.8 [facility] Comment on above: Performed By: #### G LULS #### Point of Care testing , Lymphocytes/100 WBC (Bld) 15.0 % Normal . [facility] Comment on above: Performed By: #### G LULS #### Point of Care testing , MCH (RBC) [Entitic mass] 32.1 pg Normal 27.5-35.2 [facility] Comment on above: Performed By: #### G LULS #### Point of Care testing , MCV (RBC) [Entitic vol] 93.8 fL Normal 83.5-101 [facility] Comment on above: Performed By: #### G LULS #### Point of Care testing , Mean Corpuscular HGB Conc 34.2 g/dL Normal 32.5-35.6 [facility] Comment on above: Performed By: #### G LULS #### Point of Care testing , Microcytosis Slight Normal [facility] Comment on above: Performed By: #### G LULS #### Point of Care testing , Monocytes (Bld) [#/Vol] 1.1 10*3/uL High 0.0-0.8 [facility] Comment on above: Performed By: #### G LULS #### Point of Care testing , Monocytes/100 WBC (Bld) 11.8 % Normal . [facility] Comment on above: Performed By: #### G LULS #### Point of Care testing , Neutrophils (Bld) [#/Vol] 7.0 10*3/uL Normal 1.8-7.7 [facility] Comment on above: Performed By: #### G LULS #### Point of Care testing , Neutrophils/100 WBC (Bld) 72.0 % Normal . [facility] Comment on above: Performed By: #### G LULS #### Point of Care testing , NRBC% 0.1 /100{WBC} Normal 0-0.5 [facility] Comment on above: Performed By: #### G LULS #### Point of Care testing , Platelet Estimate Normal Normal Normal [facility] Comment on above: Performed By: #### G LULS #### Point of Care testing , Platelet mean volume (Bld) [Entitic vol] 6.5 fL Low 6.6-10.1 [facility] Comment on above: Performed By: #### G LULS #### Point of Care testing , Platelet Morphology Normal Normal Normal [facility] Comment on above: Result Comment: PERF ORMED BY: 11 [place] [address] PATHOLOGIST MANAGER POOL DEMOND ESCOBAR M.D. Performed By: #### G LULS #### Point of Care testing , Platelets (Bld) [#/Vol] 225 10*3/uL Normal 150-450 [facility] Comment on above: Performed By: #### G LULS #### Point of Care testing , Polychromasia Slight Normal [facility] Comment on above: Performed By: #### G LULS #### Point of Care testing , RBC (Bld) [#/Vol] 3.30 10*6/uL Low 3.90-5.60 [facility] Comment on above: Performed By: #### G LULS #### Point of Care testing , WBC (Bld) [#/Vol] 9.7 10*3/uL Normal 4.1-10.5 [facility] Comment on above: Performed By: #### G LULS #### Point of Care testing , Serum or plasma anion gap de terminationOrdered By: Richard Zamora on 06-29-2024 Anion gap [Moles/Vol] Serum or plasma an ion gap determination 6.0-15.0 [facility] Sodium [Moles/volume] in Ser um or PlasmaOrdered By: Richard Zamora on 06-29-2024 Sodium [Moles/Vol] Sodium [Moles/volume ] in Serum or Plasma 136-145 [facility] Urea nitrogen [Mass/volume] in Serum or PlasmaOrdered By: Richard Zamora on 06-29-2024 Urea nitrogen [Mass/Vol] Urea nitrogen [Mass/volume] in Serum or Plasma High 7-25 [facility] WBC Auto (Bld) [#/Vol]Ordere d By: Richard Zamora on 06-29-2024 WBC (Bld) [#/Vol] Leukocytes [#/volume ] in Blood by Automated count 4.1-10.5 [facility] X-ray reportOrdered By: Simone Chakraborty on 06-29-2024 Study report [facility] [place] [address] XRay Report Signed Patient: Leighton Arciniega MR#: [id number] : 1945 Acct:[id number] Age/Sex: 78 / M ADM Date: Loc: XD Room: Type: [facility] Attending Dr: Richard Zamora DO Copies to: Richard Zamora DO~ Ordering Provider: Richard Zamora DO Date of Service: 06/29/24 XR/XR chest 2V*: COPD, f/u pulmonary infiltrates Plain film chest 2 view HISTORY: Shortness of breath. Follow-up infiltrates COMPARISON: 05/25/2024 FINDINGS: SUPPORT DEVICES: None POSTSURGICAL CHANGES: Cardiac device remains intact HEART: Within normal limits PULMONARY DAVID: Within normal limits MEDIASTINUM: Unremarkable LUNGS AND PLEURA: Near-complete resolution of infiltrates. Residual parenchymal densities which may be chronic. BONY STRUCTURES: Intact ADDITIONAL FINDINGS None XR/XR chest 2V* IMPRESSION: Marked improvement of infiltrates. Small residual parenchymal densities which may represent chronic finding. Impression dictated by: Benton Chakraborty M.D.06/29/2024 4:32 PM Dictation Location: RADIO-PC-23 Transcribed By: [place] 06/29/24 1632 Dictated By: Benton Chakraborty DO 06/29/24 163 Signed By: 06/29/24 1632 [facility] XR chest 2V*on 06-29-2024 XR chest 2V* [facility] Main [place] [address] [place] [address] XRay Report Signed Patient: Leighton Arciniega MR#: [id number] : 1945 Acct:[id number] Age/Sex: 78 / M ADM Date: 06/29/24 Loc: XD Room: Type: [facility] Attending Dr: Richard Zamora DO Copies to: Richard Zamora DO Ordering Provider: Richard Zamora DO Date of Service: 06/29/24 XR/XR chest 2V*: COPD, f/u pulmonary infiltrates Plain film chest 2 view HISTORY: Shortness of breath. Follow-up infiltrates COMPARISON: 05/25/2024 FINDINGS: SUPPORT DEVICES: None POSTSURGICAL CHANGES: Cardiac device remains intact HEART: Within normal limits PULMONARY DAVID: Within normal limits MEDIASTINUM: Unremarkable LUNGS AND PLEURA: Near-complete resolution of infiltrates. Residual parenchymal densities which may be chronic. BONY STRUCTURES: Intact ADDITIONAL FINDINGS None XR/XR chest 2V* IMPRESSION: Marked improvement of infiltrates. Small residual parenchymal densities which may represent chronic finding. Impression dictated by: Benton Chakraborty M.D.06/29/2024 4:32 PM Dictation Location: RADIO-PC-23 Transcribed By: [place] 06/29/24 1632 Dictated By: Benton Chakraborty DO 06/29/24 1630 Signed By: 06/29/24 1632 Normal [facility] Ascorbic acid measurementOrd ered By: Richard Zamora on 05-27-2024 Vitamin C level 0.6 mg/dL 0.4-2.0 [facility] Comment on above: This test was develo ped and its performance characteristicsdetermined by [facility]. It has not been cleared orapproved by the Food and Drug Administration.Vitamin C deficiency is generally defined as plasmaconcentrations less than 0.2 mg/dL and levels between0.2 and 0.4 mg/dL are considered low.Performed at: - [facility] [id number] Director: Lyndsay Lawson MD, Phone: [phone] Glucose Glucometer (dC) [M ass/Vol]Ordered By: Richard Zamora on 05-27-2024 Glucose [Mass/Vol] Capillary blood glucose measurement by glucometer (mass/volume) [facility] Comment on above: Random Glucose Refer ence Range is dependent on time and content of last meal. Glucose of more than 200 mg/dL in a nonstressed, ambulatory subject supports the diagnosis of Diabetes Mellitus. Glucose [Mass/Vol] Capillary blood glucose measurement by glucometer (mass/volume) [facility] Comment on above: Random Glucose Refer ence Range is dependent on time and content of last meal. Glucose of more than 200 mg/dL in a nonstressed, ambulatory subject supports the diagnosis of Diabetes Mellitus. Glucose Poct Glucometerson 0 05-27-2024 Commemt1 Glu2: Cleaned Meter Normal [facility] Comment on above: Result Comment: PERF ORMED BY: [facility] [address] [place] [address] PATHOLOGIST MANAGER POOL DEMOND ESCOBAR M.D. Performed By: #### G LULS ####Point of Care testing, Glucose [Mass/Vol] 202 mg/dL Normal [facility] Comment on above: Result Comment: Victor [facility] Glucose Reference Range is dependent on time and content of last meal. Glucose of more than 200 mg/dL in a nonstressed, ambulatory subject supports the diagnosis of Diabetes Mellitus. Performed By: #### G LULS ####Point of Care testing, Glucose [Mass/Vol] 82 mg/dL Normal [facility] Comment on above: Result Comment: [facility] Glucose Reference Range is dependent on time and content of last meal. Glucose of more than 200 mg/dL in a nonstressed, ambulatory subject supports the diagnosis of Diabetes Mellitus. PERFORMED BY: [facility] [address] [place] [address] PATHOLOGIST MANAGER POOL DEMOND ESCOBAR M.D. Performed By: #### G LULS #### Point of Care testing , Magnesiumon 05-27-2024 Magnesium [Mass/Vol] 1.6 mg/dL Low 1.9-2.7 [facility] Comment on above: Result Comment: PERF ORMED BY: [address] [place] [address] PATHOLOGIST MANAGER POOL DEMOND ESCOBAR M.D. Performed By: #### G LULS #### Point of Care testing , Magnesium [Mass/volume] in S chelo or PlasmaOrdered By: Richard Zamora on 05-27-2024 Magnesium [Mass/Vol] Magnesium [Mass/volume] in Serum or Plasma Low 1.9-2.7 [facility] No Panel InformationOrdered By: Richard Zamora on 05-27-2024 Bedside Glucose Comment Glu2: cleaned meter [facility] Vitamin Con 05-27-2024 Vitamin C 0.6 mg/dL Normal 0.4-2.0 [facility] Comment on above: Result Comment: This test was developed and its performance characteristics determined by [facility]. It has not been cleared or approved by the Food and Drug Administration. Vitamin C deficiency is generally defined as plasma concentrations less than 0.2 mg/dL and levels between 0.2 and 0.4 mg/dL are considered low. Performed at: [address] [id number] [employer]: Lyndsay Lawson MD, Phone: [phone] PERFORMED BY: [address] [place] [address] PATHOLOGIST MANAGER POOL DEMOND ESCOBAR M.D. Performed By: #### G LULS #### Point of Care testing , Anisocytosis LM Ql (Bld)Orde red By: Richard Zamora on 05-26-2024 Anisocytosis Ql (Bld) Anisocytosis [Presence] in Blood by Light microscopy [facility] Band form neutrophils/100 WB C Manual cnt (Bld)Ordered By: Richard Zamora on 05-26-2024 Band form neutrophils/100 WBC (Bld) Peripheral white blood cell differential % bands, microscopic exam 0-5 [facility] Basic Metabolic Panelon Anion gap [Moles/Vol] 9.9 mmol/L Normal 6.0-15.0 [facility] Comment on above: Performed By: #### G LULS #### Point of Care testing , Calcium [Mass/Vol] 8.3 mg/dL Low 8.6-10.3 [facility] Comment on above: Performed By: #### G LULS #### Point of Care testing , Chloride [Moles/Vol] 103 mmol/L Normal 98-107 [facility] Comment on above: Performed By: #### G LULS #### Point of Care testing , CO2 [Moles/Vol] 30.0 mmol/L Normal 21.0-31.0 [facility] Comment on above: Performed By: #### G LULS #### Point of Care testing , Creatinine [Mass/Vol] 1.44 mg/dL High 0.70-1.30 [facility] Comment on above: Performed By: #### G LULS #### Point of Care testing , Creatinine Clr Calc Pharmacy 43.65 Normal [facility] Comment on above: Result Comment: PERF ORMED BY: [facility] [address] [place] [address] PATHOLOGIST MANAGER POOL DEMOND ESCOBAR M.D. Performed By: #### G LULS #### Point of Care testing , Estimated GFR 49.736 mL/Min Normal [facility] Comment on above: Performed By: #### G LULS #### Point of Care testing , Glucose [Mass/Vol] 108 mg/dL High 70-100 [facility] Comment on above: Result Comment: Victor om Glucose Reference Range is dependent on time and content of last meal. Glucose of more than 200 mg/dL in a nonstressed, ambulatory subject supports the diagnosis of Diabetes Mellitus. ADA recommended reference range Performed By: #### G LULS #### Point of Care testing , Potassium [Moles/Vol] 3.9 mmol/L Normal 3.5-5.1 [facility] Comment on above: Performed By: #### G LULS #### Point of Care testing , Sodium [Moles/Vol] 139 mmol/L Normal 136-145 [facility] Comment on above: Performed By: #### G LULS #### Point of Care testing , Urea nitrogen [Mass/Vol] 68 mg/dL High 7-25 [facility] Comment on above: Performed By: #### G LULS #### Point of Care testing , Basophils Auto (Bld) [#/Vol] Ordered By: Richard Zamora on 05-26-2024 Basophils (Bld) [#/Vol] Automated basophil count [facility] Basophils/100 WBC Auto (Bld) Ordered By: Richard Zamora on 05-26-2024 Basophils/100 WBC (Bld) Automated basophil % [facility] Calcium [Mass/volume] in Ser um or PlasmaOrdered By: Richard Zamora on 05-26-2024 Calcium [Mass/Vol] Calcium [Mass/volume ] in Serum or Plasma Low 8.6-10.3 [facility] Carbon dioxide, total [Moles /volume] in Serum or PlasmaOrdered By: Richard Zamora on 05-26-2024 CO2 [Moles/Vol] Carbon dioxide, tota l [Moles/volume] in Serum or Plasma 21.0-31.0 [facility] Chloride [Moles/volume] in S chelo or PlasmaOrdered By: Richard Zamora on 05-26-2024 Chloride [Moles/Vol] Chloride [Moles/volume] in Serum or Plasma 98-107 [facility] Creatinine [Mass/volume] in Serum or PlasmaOrdered By: Richard Zamora on 05-26-2024 Creatinine [Mass/Vol] Creatinine [Mass/volume] in Serum or Plasma High 0.70-1.30 [facility] Diff and CBCon 05-26-2024 Anisocytosis Ql (Bld) Slight Normal [facility] Comment on above: Performed By: #### G LULS #### Point of Care testing , Band form neutrophils/100 WBC (Bld) 1 % Normal 0-5 [facility] Comment on above: Performed By: #### G LULS #### Point of Care testing , Erythrocyte distribution width (RBC) [Ratio] 16.4 % High 12.0-14.8 [facility] Comment on above: Performed By: #### G LULS #### Point of Care testing , Hematocrit (Bld) [Volume fraction] 25.8 % Low 38.8-50.0 [facility] Comment on above: Performed By: #### G LULS #### Point of Care testing , Hemoglobin (Bld) [Mass/Vol] 8.8 g/dL Low 13.0-17.0 [facility] Comment on above: Performed By: #### G LULS #### Point of Care testing , Lymphocytes/100 WBC (Bld) 7 % Low 18-42 [facility] Comment on above: Performed By: #### G LULS #### Point of Care testing , MCH (RBC) [Entitic mass] 31.8 pg Normal 27.5-35.2 [facility] Comment on above: Performed By: #### G LULS #### Point of Care testing , MCV (RBC) [Entitic vol] 93.2 fL Normal 83.5-101 [facility] Comment on above: Performed By: #### G LULS #### Point of Care testing , Mean Corpuscular HGB Conc 34.1 g/dL Normal 32.5-35.6 [facility] Comment on above: Performed By: #### G LULS #### Point of Care testing , Metamyelocytes 6 % High 0-0 [facility] Comment on above: Performed By: #### G LULS #### Point of Care testing , Monocytes/100 WBC (Bld) 6 % Normal 2-11 [facility] Comment on above: Performed By: #### G LULS #### Point of Care testing , Myelocytes 5 % High 0-0 [facility] Comment on above: Performed By: #### G LULS #### Point of Care testing , Platelet Estimate Normal Normal Normal [facility] Comment on above: Performed By: #### G LULS #### Point of Care testing , Platelet mean volume (Bld) [Entitic vol] 6.5 fL Low 6.6-10.1 [facility] Comment on above: Performed By: #### G LULS #### Point of Care testing , Platelet Morphology Normal Normal Normal [facility] Comment on above: Result Comment: PERF ORMED BY: [facility] [place] [address] PATHOLOGIST MANAGER POOL DEMOND ESCOBAR M.D. Performed By: #### G LULS #### Point of Care testing , Platelets (Bld) [#/Vol] 374 10*3/uL Normal 150-450 [facility] Comment on above: Performed By: #### G LULS #### Point of Care testing , RBC (Bld) [#/Vol] 2.76 10*6/uL Low 3.90-5.60 [facility] Comment on above: Performed By: #### G LULS #### Point of Care testing , Segmented neutrophils/100 WBC (Bld) 77 % High 50-70 [facility] Comment on above: Performed By: #### G LULS #### Point of Care testing , WBC (Bld) [#/Vol] 9.4 10*3/uL Normal 4.1-10.5 [facility] Comment on above: Performed By: #### G LULS #### Point of Care testing , Eosinophils Auto (Bld) [#/Vo l]Ordered By: Richard Zamora on 05-26-2024 Eosinophils (Bld) [#/Vol] Automated eosinophil count [facility] Eosinophils/100 WBC Auto (Bl d)Ordered By: Richard Zamora on 05-26-2024 Eosinophils/100 WBC (Bld) Automated eosinophil % [facility] Erythrocyte distribution wid th Auto (RBC) [Ratio]Ordered By: Richard Zamora on 05-26-2024 Erythrocyte distribution width (RBC) [Ratio] Erythrocyte distribution width [Ratio] by Automated count High 12.0-14.8 [facility] Erythrocyte morphology findi ng [Identifier] in BloodOrdered By: Richard Zamora on 05-26-2024 RBC morphology finding Nom (Bld) RBC morphology [facility] Glucose Poct Glucometerson 0 05-26-2024 Glucose [Mass/Vol] 164 mg/dL Normal [facility] Comment on above: Result Comment: [facility] Glucose Reference Range is dependent on time and content of last meal. Glucose of more than 200 mg/dL in a nonstressed, ambulatory subject supports the diagnosis of Diabetes Mellitus. PERFORMED BY: [address] [address] PATHOLOGIST MANAGER POOL DEMOND ESCOBAR M.D. Performed By: #### G LULS ####Point of Care testing, Glucose [Mass/Vol] 289 mg/dL Normal [facility] Comment on above: Result Comment: [facility] Glucose Reference Range is dependent on time and content of last meal. Glucose of more than 200 mg/dL in a nonstressed, ambulatory subject supports the diagnosis of Diabetes Mellitus. PERFORMED BY: [address] [address] PATHOLOGIST MANAGER POOL DEMOND ESCOBAR M.D. Performed By: #### G LULS #### Point of Care testing , Glucose [Mass/Vol] 210 mg/dL Normal [facility] Comment on above: Result Comment: [facility] Glucose Reference Range is dependent on time and content of last meal. Glucose of more than 200 mg/dL in a nonstressed, ambulatory subject supports the diagnosis of Diabetes Mellitus. PERFORMED BY: [address] [address] PATHOLOGIST MANAGER POOL DEMOND ESCOBAR M.D. Performed By: #### G LULS #### Point of Care testing , Commemt1 Glu2: Cleaned Meter Normal [facility] Comment on above: Result Comment: PERF ORMED BY: [facility] [address] [place] [address] PATHOLOGIST MANAGER POOL DEMOND ESCOBAR M.D. Performed By: #### G LULS ####Point of Care testing, Glucose [Mass/Vol] 120 mg/dL Normal [facility] Comment on above: Result Comment: [facility] Glucose Reference Range is dependent on time and content of last meal. Glucose of more than 200 mg/dL in a nonstressed, ambulatory subject supports the diagnosis of Diabetes Mellitus. Performed By: #### G LULS ####Point of Care testing, Glucose [Mass/volume] in Ser um or PlasmaOrdered By: Richard Zamora on 05-26-2024 Glucose [Mass/Vol] Glucose [Mass/volume ] in Serum or Plasma High 70-100 [facility] Comment on above: ADA recommended refe rence rangeRandom Glucose Reference Range is dependent on time and content of last meal. Glucose of more than 200 mg/dL in a nonstressed, ambulatory subject supports the diagnosis of Diabetes Mellitus. Hematocrit Auto (Bld) [Volum e fraction]Ordered By: Richard Zamora on 05-26-2024 Hematocrit (Bld) [Volume fraction] Hematocrit [Volume Fraction] of Blood by Automated count Low 38.8-50.0 [facility] Hemoglobin [Mass/volume] in BloodOrdered By: Richard Zamora on 05-26-2024 Hemoglobin (Bld) [Mass/Vol] Hemoglobin [Mass/volume] in Blood Low 13.0-17.0 [facility] Leukocytes [#/volume] correc gabrielle for nucleated erythrocytes in Blood by Automated counOrdered By: Richard Zamora on 05-26-2024 WBC corrected for nucl RBC Auto (Bld) [#/Vol] Leukocytes [#/volume] corrected for nucleated erythrocytes in Blood by Automated coun 4.1-10.5 [facility] Lymphocytes Auto (Bld) [#/Vo l]Ordered By: Richard Zamora on 05-26-2024 Lymphocytes (Bld) [#/Vol] Lymphocytes [#/volume] in Blood by Automated count [facility] Lymphocytes/100 WBC Auto (Bl d)Ordered By: Richard Zamora on 05-26-2024 Lymphocytes/100 WBC (Bld) Lymphocytes/100 leukocytes in Blood by Automated count [facility] Lymphocytes/100 WBC Manual c nt (Bld)Ordered By: Richard Zamora on 05-26-2024 Lymphocytes/100 WBC (Bld) Lymphocytes/100 leukocytes in Blood by Manual count Low 18-42 [facility] MCH Auto (RBC) [Entitic mass ]Ordered By: Richard Zamora on 05-26-2024 MCH (RBC) [Entitic mass] MCH [Entitic mass] by Automated count 27.5-35.2 [facility] MCHC Auto (RBC) [Mass/Vol]Or dered By: Richard Zamora on 05-26-2024 MCHC (RBC) [Mass/Vol] MCHC [Mass/volume] by Automated count 32.5-35.6 [facility] MCV Auto (RBC) [Entitic vol] Ordered By: Richard Zamora on 05-26-2024 MCV (RBC) [Entitic vol] MCV [Entitic volume] by Automated count 83.5-101 [facility] Metamyelocytes/100 WBC Manua l cnt (Bld)Ordered By: Richard Zamora on 05-26-2024 Metamyelocytes/100 WBC (Bld) Metamyelocytes/100 leukocytes in Blood by Manual count High 0-0 [facility] Monocytes Auto (Bld) [#/Vol] Ordered By: Richard Zamora on 05-26-2024 Monocytes (Bld) [#/Vol] Automated blood monocyte count [facility] Monocytes/100 WBC Auto (Bld) Ordered By: Richard Zamora on 05-26-2024 Monocytes/100 WBC (Bld) Automated monocyte % [facility] Monocytes/100 WBC Manual cnt (Bld)Ordered By: Richard Zamora on 05-26-2024 Monocytes/100 WBC (Bld) Monocytes/100 leukocytes in Blood by Manual count 2-11 [facility] Myelocytes/100 WBC Manual cn t (Bld)Ordered By: Richard Zamora on 05-26-2024 Myelocytes/100 WBC (Bld) Myelocytes/100 leukocytes in Blood by Manual count High 0-0 [facility] Neutrophils Auto (Bld) [#/Vo l]Ordered By: Richard Zamora on 05-26-2024 Neutrophils (Bld) [#/Vol] Neutrophils [#/volume] in Blood by Automated count [facility] Neutrophils/100 WBC Auto (Bl d)Ordered By: Richard Zamora on 05-26-2024 Neutrophils/100 WBC (Bld) Automated neutrophil % [facility] No Panel InformationOrdered By: Richard Zamora on 05-26-2024 Bedside Glucose Comment Glu2: cleaned meter [facility] Estimated GFR (CKD-EPI) 49.736 mL/Min [facility] Creatinine Clearance (Chem 43.65 [facility] Nucleated erythrocytes [Pres ence] in Blood by Automated countOrdered By: Richard Zamora on 05-26-2024 Nucleated RBC Auto Ql (Bld) Nucleated erythrocytes [Presence] in Blood by Automated count [facility] Platelet adequacy [Presence] in Blood by Light microscopyOrdered By: Richard Zamora on 05-26-2024 Platelets LM Ql (Bld) Platelet adequacy [Presence] in Blood by Light microscopy Normal [facility] Platelet mean volume Auto (B ld) [Entitic vol]Ordered By: Richard Zamora on 05-26-2024 Platelet mean volume (Bld) [Entitic vol] Platelet mean volume [Entitic volume] in Blood by Automated count Low 6.6-10.1 [facility] Platelet morphology finding [Identifier] in BloodOrdered By: Richard Zamora on 05-26-2024 Platelet morphology finding Nom (Bld) Platelet morphology finding [Identifier] in Blood Normal [facility] Platelets Auto (Bld) [#/Vol] Ordered By: Richard Zamora on 05-26-2024 Platelets (Bld) [#/Vol] Platelets [#/volume] in Blood by Automated count 150-450 [facility] Potassium [Moles/volume] in Serum or PlasmaOrdered By: Richard Zamora on 05-26-2024 Potassium [Moles/Vol] Potassium [Moles/volume] in Serum or Plasma 3.5-5.1 [facility] RBC Auto (Bld) [#/Vol]Ordere d By: Richard Zamora on 05-26-2024 RBC (Bld) [#/Vol] Erythrocytes [#/volume] in Blood by Automated count Low 3.90-5.60 [facility] Segmented neutrophils/100 WB C Manual cnt (Bld)Ordered By: Richard Zamora on 05-26-2024 Segmented neutrophils/100 WBC (Bld) Manual blood segmented neutrophils/100 leukocytes High 50-70 [facility] Serum or plasma anion gap de terminationOrdered By: Richard Zamora on 05-26-2024 Anion gap [Moles/Vol] Serum or plasma an ion gap determination 6.0-15.0 [facility] Sodium [Moles/volume] in Ser um or PlasmaOrdered By: Richard Zamora on 05-26-2024 Sodium [Moles/Vol] Sodium [Moles/volume ] in Serum or Plasma 136-145 [facility] Urea nitrogen [Mass/volume] in Serum or PlasmaOrdered By: Richard Zamora on 05-26-2024 Urea nitrogen [Mass/Vol] Urea nitrogen [Mass/volume] in Serum or Plasma High 7-25 [facility] WBC Auto (Bld) [#/Vol]Ordere d By: Richard Zamora on 05-26-2024 WBC (Bld) [#/Vol] Leukocytes [#/volume ] in Blood by Automated count 4.1-10.5 [facility] Basic Metabolic Panelon Anion gap [Moles/Vol] 9.9 mmol/L Normal 6.0-15.0 [facility] Comment on above: Performed By: #### G LULS #### Point of Care testing , Calcium [Mass/Vol] 8.4 mg/dL Low 8.6-10.3 [facility] Comment on above: Performed By: #### G LULS #### Point of Care testing , Chloride [Moles/Vol] 104 mmol/L Normal 98-107 [facility] [facility] Comment on above: Performed By: #### G LULS #### Point of Care testing , CO2 [Moles/Vol] 29.8 mmol/L Normal 21.0-31.0 [facility] Comment on above: Performed By: #### G LULS #### Point of Care testing , Creatinine [Mass/Vol] 1.51 mg/dL High 0.70-1.30 [facility] Comment on above: Performed By: #### G LULS #### Point of Care testing , Creatinine Clr Calc Pharmacy 41.63 Normal [facility] Comment on above: Result Comment: PERF ORMED BY: [facility] [address] [place] [address] PATHOLOGIST MANAGER POOL DEMOND ESCOBAR M.D. Performed By: #### G LULS #### Point of Care testing , Estimated GFR 46.982 mL/Min Normal [facility] Comment on above: Performed By: #### G LULS #### Point of Care testing , Glucose [Mass/Vol] 109 mg/dL High 70-100 [facility] Comment on above: Result Comment: [facility] Glucose Reference Range is dependent on time and content of last meal. Glucose of more than 200 mg/dL in a nonstressed, ambulatory subject supports the diagnosis of Diabetes Mellitus. ADA recommended reference range Performed By: #### G LULS #### Point of Care testing , Potassium [Moles/Vol] 3.7 mmol/L Normal 3.5-5.1 [facility] Comment on above: Performed By: #### G LULS #### Point of Care testing , Sodium [Moles/Vol] 140 mmol/L Normal 136-145 [facility] Comment on above: Performed By: #### G LULS #### Point of Care testing , Urea nitrogen [Mass/Vol] 78 mg/dL High 7-25 [facility] Comment on above: Performed By: #### G LULS #### Point of Care testing , Glucose Poct Glucometerson 0 3-06-2025 Glucose [Mass/Vol] 206 mg/dL Normal [facility] Comment on above: Result Comment: [facility] [place] Glucose Reference Range is dependent on time and content of last meal. Glucose of more than 200 mg/dL in a nonstressed, ambulatory subject supports the diagnosis of Diabetes Mellitus. PERFORMED BY: [address] [address] PATHOLOGIST MANAGER POOL DEMOND ESCOBAR M.D. Performed By: #### G LULS #### Point of Care testing , Glucose [Mass/Vol] 191 mg/dL Normal [facility] Comment on above: Result Comment: [facility] [place] Glucose Reference Range is dependent on time and content of last meal. Glucose of more than 200 mg/dL in a nonstressed, ambulatory subject supports the diagnosis of Diabetes Mellitus. PERFORMED BY: [address] [address] PATHOLOGIST MANAGER POOL DEMOND ESCOBAR M.D. Performed By: #### G LULS #### Point of Care testing , Glucose [Mass/Vol] 200 mg/dL Normal [facility] Comment on above: Result Comment: [facility] [place] Glucose Reference Range is dependent on time and content of last meal. Glucose of more than 200 mg/dL in a nonstressed, ambulatory subject supports the diagnosis of Diabetes Mellitus. PERFORMED BY: [address] [place] [address] PATHOLOGIST MANAGER POOL DEMOND ESCOBAR M.D. Performed By: #### G LULS #### Point of Care testing , Glucose [Mass/Vol] 113 mg/dL Normal [facility] Comment on above: Result Comment: [facility] [place] Glucose Reference Range is dependent on time and content of last meal. Glucose of more than 200 mg/dL in a nonstressed, ambulatory subject supports the diagnosis of Diabetes Mellitus. PERFORMED BY: [address] [address] PATHOLOGIST MANAGER POOL DEMOND ESCOBAR M.D. Performed By: #### G LULS #### Point of Care testing , Hypochromia LM Ql (Bld)Order ed By: Richard Zamora on 05-25-2024 Hypochromia Ql (Bld) Hypochromia [Presen ce] in Blood by Light microscopy [facility] Polychromasia [Presence] in Blood by Light microscopyOrdered By: Richard Zamora on 05-25-2024 Polychromasia LM Ql (Bld) Polychromasia [Presence] in Blood by Light microscopy [facility] Scan and CBCon 05-25-2024 Anisocytosis Ql (Bld) Slight Normal [facility] Comment on above: Performed By: #### G LULS #### Point of Care testing , Basophils (Bld) [#/Vol] 0.0 10*3/uL Normal 0.0-0.2 [facility] Comment on above: Performed By: #### G LULS #### Point of Care testing , Basophils/100 WBC (Bld) 0.3 % Normal . [facility] Comment on above: Performed By: #### G LULS #### Point of Care testing , Eosinophils (Bld) [#/Vol] 0.0 10*3/uL Normal 0.0-0.45 [facility] Comment on above: Performed By: #### G LULS #### Point of Care testing , Eosinophils/100 WBC (Bld) 0.0 % Normal . [facility] Comment on above: Performed By: #### G LULS #### Point of Care testing , Erythrocyte distribution width (RBC) [Ratio] 16.2 % High 12.0-14.8 [facility] Comment on above: Performed By: #### G LULS #### Point of Care testing , Hematocrit (Bld) [Volume fraction] 23.9 % Low 38.8-50.0 [facility] Comment on above: Performed By: #### G LULS #### Point of Care testing , Hemoglobin (Bld) [Mass/Vol] 8.2 g/dL Low 13.0-17.0 [facility] Comment on above: Performed By: #### G LULS #### Point of Care testing , Hypochromasia Slight Normal [facility] Comment on above: Performed By: #### G LULS #### Point of Care testing , Lymphocytes (Bld) [#/Vol] 0.5 10*3/uL Low 1.00-4.8 [facility] Comment on above: Performed By: #### G LULS #### Point of Care testing , Lymphocytes/100 WBC (Bld) 5.6 % Normal . [facility] Comment on above: Performed By: #### G LULS #### Point of Care testing , MCH (RBC) [Entitic mass] 31.5 pg Normal 27.5-35.2 [facility] Comment on above: Performed By: #### G LULS #### Point of Care testing , MCV (RBC) [Entitic vol] 92.3 fL Normal 83.5-101 [facility] Comment on above: Performed By: #### G LULS #### Point of Care testing , Mean Corpuscular HGB Conc 34.1 g/dL Normal 32.5-35.6 [facility] Comment on above: Performed By: #### G LULS #### Point of Care testing , Monocytes (Bld) [#/Vol] 0.3 10*3/uL Normal 0.0-0.8 [facility] Comment on above: Performed By: #### G LULS #### Point of Care testing , Monocytes/100 WBC (Bld) 4.1 % Normal . [facility] Comment on above: Performed By: #### G LULS #### Point of Care testing , Neutrophils (Bld) [#/Vol] 7.6 10*3/uL Normal 1.8-7.7 [facility] Comment on above: Performed By: #### G LULS #### Point of Care testing , Neutrophils/100 WBC (Bld) 90.0 % Normal . [facility] Comment on above: Performed By: #### G LULS #### Point of Care testing , NRBC% 0.2 /100{WBC} Normal 0-0.5 [facility] Comment on above: Performed By: #### G LULS #### Point of Care testing , Platelet Estimate Normal Normal Normal [facility] Comment on above: Performed By: #### G LULS #### Point of Care testing , Platelet mean volume (Bld) [Entitic vol] 6.6 fL Normal 6.6-10.1 [facility] Comment on above: Performed By: #### G LULS #### Point of Care testing , Platelet Morphology Normal Normal Normal [facility] Comment on above: Result Comment: PERF ORMED BY: [place] [address] PATHOLOGIST MANAGER POOL DEMOND ESCOBAR M.D. Performed By: #### G LULS #### Point of Care testing , Platelets (Bld) [#/Vol] 341 10*3/uL Normal 150-450 [facility] Comment on above: Performed By: #### G LULS #### Point of Care testing , Polychromasia Slight Normal [facility] Comment on above: Performed By: #### G LULS #### Point of Care testing , RBC (Bld) [#/Vol] 2.59 10*6/uL Low 3.90-5.60 [facility] Comment on above: Performed By: #### G LULS #### Point of Care testing , WBC (Bld) [#/Vol] 8.4 10*3/uL Normal 4.1-10.5 [facility] Comment on above: Performed By: #### G LULS #### Point of Care testing , X-ray reportOrdered By: Aaron Edwards on 05-25-2024 Study report [facility] [place] [address] XRay Report Signed Patient: Leighton Arciniega MR#: [id number] : 1945 Acct:[id number] Age/Sex: 78 / M ADM Date: 5 Loc: Room: [address] [place] [address] Type: ADM IN Attending Dr: Richard Zamora DO Copies to: MD Richard Olvera DO~ Ordering Provider: Darshan Willams MD Date of Service: 05/25/24 XR/XR chest 2V*: reevaluate bilateral infiltrates Chest 2 views CLINICAL HISTORY: Follow-up infiltrates COMPARISON: Chest 05/20/2024 FINDINGS: Cardiomegaly with vascular congestion and interstitial changes have improved since the prior study. 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 No pneumothorax or free air. XR/XR chest 2V* IMPRESSION: IMPROVEMENT IN AERATION OF THE LUNGS WHEN COMPARED TO THE PRIOR STUDY. CONTINUED FOLLOW-UP IS RECOMMENDED. Impression dictated by: Swapnil Edwards Jr., D.O.05/25/2024 9:58 AM Dictation Location: [place] [address] Transcribed By: [facility] 05/25/24957 Dictated By: Swapnil Edwards Jr, DO 05/25/24 0958 Signed By: 05/25/24 0958 [facility] XR chest 2V*on 05-25-2024 XR chest 2V* [facility] [place] [address] XRay Report Signed Patient: Leighton Arciniega MR#: [id number] : 1945 Acct:[id number] Age/Sex: 78 / M ADM Date: 05/20/24 Loc: Room: [address] [place] [address] Type: ADM IN Attending Dr: Richard Zamora DO Copies to: MD Richard Olvera DO Ordering Provider: Darshan Willams MD Date of Service: 05/25/24 XR/XR chest 2V*: reevaluate bilateral infiltrates Chest 2 views CLINICAL HISTORY: Follow-up infiltrates COMPARISON: Chest 05/20/2024 FINDINGS: Cardiomegaly with vascular congestion and interstitial changes have improved since the prior study. 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 No pneumothorax or free air. XR/XR chest 2V* IMPRESSION: IMPROVEMENT IN AERATION OF THE LUNGS WHEN COMPARED TO THE PRIOR STUDY. CONTINUED FOLLOW-UP IS RECOMMENDED. Impression dictated by: Swapnil Edwards Jr., D.O.05/25/2024 9:58 AM Dictation Location: [place] [address] Transcribed By: [facility] 05/25/24957 Dictated By: Swapnil Edwards Jr, DO 05/25/24957 Signed By: 05/25/24957 Normal [facility] Basic Metabolic Panelon Anion gap [Moles/Vol] 11.5 mmol/L Normal 6.0-15.0 [facility] Comment on above: Performed By: #### B SARA, CBC ####[address] [address] [facility] Calcium [Mass/Vol] 8.6 mg/dL Normal 8.6-10.3 [facility] Comment on above: Performed By: #### B MP, CBC ####[address] [address] [facility] Chloride [Moles/Vol] 103 mmol/L Normal 98-107 [facility] Comment on above: Performed By: #### B MP, CBC ####[address] [address] [facility] CO2 [Moles/Vol] 29.1 mmol/L Normal 21.0-31.0 [facility] Comment on above: Performed By: #### B MP, CBC ####[address] [address] [facility] Creatinine [Mass/Vol] 1.91 mg/dL High 0.70-1.30 [facility] Comment on above: Performed By: #### B MP, CBC ####[place] [id number] [facility] Creatinine Clr Calc Pharmacy 32.91 Normal [facility] Comment on above: Result Comment: PERF ORMED BY: [facility] [address] [place] [id number] PATHOLOGIST MANAGER POOL DEMOND ESCOBAR M.D. Performed By: #### B MP, CBC ####[address] [address] [facility] Estimated GFR 35.437 mL/Min Normal [facility] Comment on above: Performed By: #### B MP, CBC ####[place] [id number] [facility] Glucose [Mass/Vol] 170 mg/dL High 70-100 [facility] Comment on above: Result Comment: [facility] Glucose Reference Range is dependent on time and content of last meal. Glucose of more than 200 mg/dL in a nonstressed, ambulatory subject supports the diagnosis of Diabetes Mellitus. ADA recommended reference range Performed By: #### B MP, CBC ####[address] Potassium [Moles/Vol] 3.6 mmol/L Normal 3.5-5.1 [facility] Comment on above: Performed By: #### B MP, CBC ####[address] Sodium [Moles/Vol] 140 mmol/L Normal 136-145 [facility] Comment on above: Performed By: #### B MP, CBC ####[place] [id number] [facility] Urea nitrogen [Mass/Vol] 83 mg/dL High 7-25 [facility] Comment on above: Performed By: #### B MP, CBC ####[place] [id number] [facility] Complete Blood Count Auto Di ffon 05-24-2024 Basophils (Bld) [#/Vol] 0.0 10*3/uL Normal 0.0-0.2 [facility] Comment on above: Result Comment: PERF ORMED BY: [facility] [address] [place] [id number] PATHOLOGIST MANAGER POOL DEMOND ESCOBAR M.D. Performed By: #### B MP, CBC ####[place] [id number] [facility] Basophils/100 WBC (Bld) 0.6 % Normal . [facility] Comment on above: Performed By: #### B MP, CBC ####[place] [id number] [facility] Eosinophils (Bld) [#/Vol] 0.0 10*3/uL Normal 0.0-0.45 [facility] Comment on above: Performed By: #### B MP, CBC ####[address] Eosinophils/100 WBC (Bld) 0.1 % Normal . [facility] Comment on above: Performed By: #### B MP, CBC ####[address] Erythrocyte distribution width (RBC) [Ratio] 16.1 % High 12.0-14.8 [facility] Comment on above: Performed By: #### B MP, CBC ####[address] Hematocrit (Bld) [Volume fraction] 23.8 % Low 38.8-50.0 [facility] Comment on above: Performed By: #### B MP, CBC ####[address] Hemoglobin (Bld) [Mass/Vol] 8.2 g/dL Low 13.0-17.0 [facility] Comment on above: Performed By: #### B MP, CBC ####[address] Lymphocytes (Bld) [#/Vol] 0.4 10*3/uL Low 1.00-4.8 [facility] Comment on above: Performed By: #### B MP, CBC ####[address] Lymphocytes/100 WBC (Bld) 5.0 % Normal . [facility] Comment on above: Performed By: #### B MP, CBC ####[address] MCH (RBC) [Entitic mass] 32.1 pg Normal 27.5-35.2 [facility] Comment on above: Performed By: #### B MP, CBC ####[place] [id number] [place] MCV (RBC) [Entitic vol] 93.6 fL Normal 83.5-101 [facility] Comment on above: Performed By: #### B MP, CBC ####[address] Mean Corpuscular HGB Conc 34.3 g/dL Normal 32.5-35.6 [facility] Comment on above: Performed By: #### B MP, CBC ####[address] Monocytes (Bld) [#/Vol] 0.3 10*3/uL Normal 0.0-0.8 [facility] Comment on above: Performed By: #### B MP, CBC ####[address] Monocytes/100 WBC (Bld) 3.3 % Normal . [facility] Comment on above: Performed By: #### B MP, CBC ####[address] Neutrophils (Bld) [#/Vol] 8.0 10*3/uL High 1.8-7.7 [facility] Comment on above: Performed By: #### B MP, CBC ####[address] Neutrophils/100 WBC (Bld) 91.0 % Normal . [facility] Comment on above: Performed By: #### B MP, CBC ####[address] NRBC% 0.1 /100{WBC} Normal 0-0.5 [facility] Comment on above: Performed By: #### B MP, CBC ####[address] Platelet mean volume (Bld) [Entitic vol] 6.5 fL Low 6.6-10.1 [facility] Comment on above: Performed By: #### B MP, CBC ####[address] Platelets (Bld) [#/Vol] 292 10*3/uL Normal 150-450 [facility] Comment on above: Performed By: #### B MP, CBC ####[address] RBC (Bld) [#/Vol] 2.55 10*6/uL Low 3.90-5.60 [facility] Comment on above: Performed By: #### B MP, CBC ####[address] WBC (Bld) [#/Vol] 8.7 10*3/uL Normal 4.1-10.5 [facility] Comment on above: Performed By: #### B MP, CBC ####[address] Glucose Poct Glucometerson 0 05-24-2024 Glucose [Mass/Vol] 138 mg/dL Normal [facility] Comment on above: Result Comment: [facility] [place] Glucose Reference Range is dependent on time and content of last meal. Glucose of more than 200 mg/dL in a nonstressed, ambulatory subject supports the diagnosis of Diabetes Mellitus. PERFORMED BY: [place] [address] PATHOLOGIST MANAGER POOL DEMOND ESCOBAR M.D. Performed By: #### G LULS #### Point of Care testing , Glucose [Mass/Vol] 183 mg/dL Normal [facility] Comment on above: Result Comment: [facility] [place] Glucose Reference Range is dependent on time and content of last meal. Glucose of more than 200 mg/dL in a nonstressed, ambulatory subject supports the diagnosis of Diabetes Mellitus. PERFORMED BY: [place] [id number] PATHOLOGIST MANAGER POOL DEMOND ESCOBAR M.D. Performed By: #### G LULS #### Point of Care testing , Glucose [Mass/Vol] 269 mg/dL Normal [facility] Comment on above: Result Comment: [facility] [place] Glucose Reference Range is dependent on time and content of last meal. Glucose of more than 200 mg/dL in a nonstressed, ambulatory subject supports the diagnosis of Diabetes Mellitus. PERFORMED BY: [facility] [address] [facility] [place] [address] PATHOLOGIST MANAGER POOL DEMOND ESCOBAR M.D. Performed By: #### G LULS #### Point of Care testing , Glucose [Mass/Vol] 185 mg/dL Normal [facility] Comment on above: Result Comment: [facility] [place] Glucose Reference Range is dependent on time and content of last meal. Glucose of more than 200 mg/dL in a nonstressed, ambulatory subject supports the diagnosis of Diabetes Mellitus. PERFORMED BY: [facility] [address] [facility] [place] [address] PATHOLOGIST MANAGER POOL DEMOND ESCOBAR M.D. Performed By: #### G LULS ####Point of Care testing, Basic Metabolic Panelon 030 Anion gap [Moles/Vol] 13.5 mmol/L Normal 6.0-15.0 [facility] Comment on above: Performed By: #### G LULS #### Point of Care testing , Calcium [Mass/Vol] 8.5 mg/dL Low 8.6-10.3 [facility] Comment on above: Performed By: #### G LULS #### Point of Care testing , Chloride [Moles/Vol] 103 mmol/L Normal 98-107 [facility] Comment on above: Performed By: #### G LULS #### Point of Care testing , CO2 [Moles/Vol] 29.2 mmol/L Normal 21.0-31.0 [facility] Comment on above: Performed By: #### G LULS #### Point of Care testing , Creatinine [Mass/Vol] 1.78 mg/dL High 0.70-1.30 [facility] Comment on above: Performed By: #### G LULS #### Point of Care testing , Creatinine Clr Calc Pharmacy 35.32 Normal [facility] Comment on above: Result Comment: PERF ORMED BY: [facility] [address] [facility] [place] [address] PATHOLOGIST MANAGER POOL DEMOND ESCOBAR M.D. Performed By: #### G LULS #### Point of Care testing , Estimated GFR 38.565 mL/Min Normal [facility] Comment on above: Performed By: #### G LULS #### Point of Care testing , Glucose [Mass/Vol] 245 mg/dL High 70-100 [facility] Comment on above: Result Comment: [facility] [place] Glucose Reference Range is dependent on time and content of last meal. Glucose of more than 200 mg/dL in a nonstressed, ambulatory subject supports the diagnosis of Diabetes Mellitus. ADA recommended reference range Performed By: #### G LULS #### Point of Care testing , Potassium [Moles/Vol] 3.7 mmol/L Normal 3.5-5.1 [facility] Comment on above: Performed By: #### G LULS #### Point of Care testing , Sodium [Moles/Vol] 142 mmol/L Normal 136-145 [facility] Comment on above: Performed By: #### G LULS #### Point of Care testing , Urea nitrogen [Mass/Vol] 77 mg/dL High 7-25 [facility] Comment on above: Performed By: #### G LULS #### Point of Care testing , Complete Blood Count Auto Di ffon 05-23-2024 Basophils (Bld) [#/Vol] 0.0 10*3/uL Normal 0.0-0.2 [facility] Comment on above: Result Comment: PERF ORMED BY: [facility] [address] [place] [address] PATHOLOGIST MANAGER POOL DEMOND ESCOBAR M.D. Performed By: #### G LULS #### Point of Care testing , Basophils/100 WBC (Bld) 0.2 % Normal . [facility] Comment on above: Performed By: #### G LULS #### Point of Care testing , Eosinophils (Bld) [#/Vol] 0.0 10*3/uL Normal 0.0-0.45 [facility] Comment on above: Performed By: #### G LULS #### Point of Care testing , Eosinophils/100 WBC (Bld) 0.0 % Normal . [facility] Comment on above: Performed By: #### G LULS #### Point of Care testing , Erythrocyte distribution width (RBC) [Ratio] 15.6 % High 12.0-14.8 [facility] Comment on above: Performed By: #### G LULS #### Point of Care testing , Hematocrit (Bld) [Volume fraction] 23.3 % Low 38.8-50.0 [facility] Comment on above: Performed By: #### G LULS #### Point of Care testing , Hemoglobin (Bld) [Mass/Vol] 8.0 g/dL Low 13.0-17.0 [facility] Comment on above: Performed By: #### G LULS #### Point of Care testing , Lymphocytes (Bld) [#/Vol] 0.3 10*3/uL Low 1.00-4.8 [facility] Comment on above: Performed By: #### G LULS #### Point of Care testing , Lymphocytes/100 WBC (Bld) 4.2 % Normal . [facility] Comment on above: Performed By: #### G LULS #### Point of Care testing , MCH (RBC) [Entitic mass] 31.9 pg Normal 27.5-35.2 [facility] Comment on above: Performed By: #### G LULS #### Point of Care testing , MCV (RBC) [Entitic vol] 92.6 fL Normal 83.5-101 [facility] Comment on above: Performed By: #### G LULS #### Point of Care testing , Mean Corpuscular HGB Conc 34.5 g/dL Normal 32.5-35.6 [facility] Comment on above: Performed By: #### G LULS #### Point of Care testing , Monocytes (Bld) [#/Vol] 0.3 10*3/uL Normal 0.0-0.8 [facility] Comment on above: Performed By: #### G LULS #### Point of Care testing , Monocytes/100 WBC (Bld) 3.9 % Normal . [facility] Comment on above: Performed By: #### G LULS #### Point of Care testing , Neutrophils (Bld) [#/Vol] 7.1 10*3/uL Normal 1.8-7.7 [facility] Comment on above: Performed By: #### G LULS #### Point of Care testing , Neutrophils/100 WBC (Bld) 91.7 % Normal . [facility] Comment on above: Performed By: #### G LULS #### Point of Care testing , NRBC% 0.1 /100{WBC} Normal 0-0.5 [facility] Comment on above: Performed By: #### G LULS #### Point of Care testing , Platelet mean volume (Bld) [Entitic vol] 7.2 fL Normal 6.6-10.1 [facility] Comment on above: Performed By: #### G LULS #### Point of Care testing , Platelets (Bld) [#/Vol] 239 10*3/uL Normal 150-450 [facility] Comment on above: Performed By: #### G LULS #### Point of Care testing , RBC (Bld) [#/Vol] 2.51 10*6/uL Low 3.90-5.60 [facility] Comment on above: Performed By: #### G LULS #### Point of Care testing , WBC (Bld) [#/Vol] 7.7 10*3/uL Normal 4.1-10.5 [facility] Comment on above: Performed By: #### G LULS #### Point of Care testing , Glucose Poct Glucometerson 0 05-23-2024 Glucose [Mass/Vol] 204 mg/dL Normal [facility] Comment on above: Result Comment: [facility] [place] Glucose Reference Range is dependent on time and content of last meal. Glucose of more than 200 mg/dL in a nonstressed, ambulatory subject supports the diagnosis of Diabetes Mellitus. PERFORMED BY: [facility] [place] [address] PATHOLOGIST MANAGER POOL DEMOND ESCOBAR M.D. Performed By: #### G LULS #### Point of Care testing , Glucose [Mass/Vol] 132 mg/dL Normal [facility] Comment on above: Result Comment: [place] om Glucose Reference Range is dependent on time and content of last meal. Glucose of more than 200 mg/dL in a nonstressed, ambulatory subject supports the diagnosis of Diabetes Mellitus. PERFORMED BY: [address] [place] [id number] PATHOLOGIST MANAGER POOL DEMOND ESCOBAR M.D. Performed By: #### G LULS ####Point of Care testing, Glucose [Mass/Vol] 95 mg/dL Normal [facility] Comment on above: Result Comment: Victor Glucose Reference Range is dependent on time and content of last meal. Glucose of more than 200 mg/dL in a nonstressed, ambulatory subject supports the diagnosis of Diabetes Mellitus. PERFORMED BY: [address] [place] [id number] PATHOLOGIST MANAGER POOL DEMOND ESCOBAR M.D. Performed By: #### G LULS ####Point of Care testing, Commemt1 Normal [facility] Comment on above: Result Comment: Glu2 : WILL NOTIFY DR/RN PERFORMED BY: [address] [place] [id number] PATHOLOGIST MANAGER POOL DEMOND ESCOBAR M.D. Performed By: #### G LULS #### Point of Care testing , Glucose [Mass/Vol] 406 mg/dL Off scale high [facility] Comment on above: Result Comment: [place] om Glucose Reference Range is dependent on time and content of last meal. Glucose of more than 200 mg/dL in a nonstressed, ambulatory subject supports the diagnosis of Diabetes Mellitus. Performed By: #### G LULS #### Point of Care testing , Commemt1 Normal [facility] Comment on above: Result Comment: Glu2 : Will Repeat Test PERFORMED BY: [address] [place] [id number] PATHOLOGIST MANAGER POOL DEMOND ESCOBAR M.D. Performed By: #### G LULS #### Point of Care testing , Glucose [Mass/Vol] 475 mg/dL Off scale high [facility] Comment on above: Result Comment: [place] om Glucose Reference Range is dependent on time and content of last meal. Glucose of more than 200 mg/dL in a nonstressed, ambulatory subject supports the diagnosis of Diabetes Mellitus. Performed By: #### G LULS #### Point of Care testing , Glucose [Mass/Vol] 298 mg/dL Normal [facility] Comment on above: Result Comment: [place] om Glucose Reference Range is dependent on time and content of last meal. Glucose of more than 200 mg/dL in a nonstressed, ambulatory subject supports the diagnosis of Diabetes Mellitus. PERFORMED BY: [place] [address] PATHOLOGIST MANAGER POOL DEMOND ESCOBAR M.D. Performed By: #### G LULS #### Point of Care testing , NM nelson perf SPECT rest stron 05-23-2024 NM nelson perf SPECT rest str [facility] [place] [address] Nuclear Medicine Report Signed Patient: Leighton Arciniega MR#: [id number] : 1945 Acct:[id number] Age/Sex: 78 / M ADM Date: 05/20/24 Loc: Room: [address] [place] [address] Type: ADM IN Attending Dr: Richard Zamora DO Copies to: MD Richard Celeste DO Ordering Provider: John Nettles MD Date of Service: 05/23/24 NM/NM nelson perf SPECT rest str: *Dose ordered chf NUCLEAR MYOCARDIAL PERFUSION DATE OF PROCEDURE: 05/23/2024 ATTENDING ZUMBA INSTRUCTOR: Dr. John Nettles REQUESTING PHYSICIAN: Dr. Harvey PROCEDURE: The patient received a stress dose of Lexiscan and was then injected with 1 millicuries of Technetium 99M Sestamibi. The patient achieved a workload of 1 METs during the last one minute of exercise. The patient was then injected with 1 millicuries of Technetium 99M Sestamibi one minute before the end of the exercise. For rest images the patient was injected with 1 millicuries of Technetium 99M Sestamibi. FINDINGS: The raw cine images were reviewed. The post stress and rest perfusion images were reviewed as well as the computer quantification.? There was uniform uptake of the radiotracer. No perfusion defects to indicate ischemia or infarction. Poor quality study due to gut uptake. On the gated portion of the study, the overall ejection fraction calculated at 35%.?Severely dilated LV with apical hypokinesis. TID score 1.06 is within normal limits. NM/NM nelson perf SPECT rest str IMPRESSION: 1. SPECT Sestamibi myocardial perfusion study is within normal limits. No ischemia or infarction. 2. Severely dilated LV with apical hypokinesis. 3. Reduced left ventricular systolic function. LVEF is 35%.? Impression dictated by: John Nettles M.D.05/23/2024 2:23 PM Dictation Location: [place] [address] Transcribed By: [place] 05/23/24 1423 Dictated By: John Nettles MD 05/23/24 1417 Signed By: 05/23/24 1423 Normal [facility] No Panel InformationOrdered By: John Nettles on 05-23-2024 [facility] [place] [address] Cardiac Stress Test Signed Patient: Leighton Arciniega MR#: [id number] : 1945 Date of Service:0 05/23/24 Age/Sex: 78 / M ADM Date: 5 Loc: Room: [address] [place] [address] Type: ADM IN Attending Dr: Richard Zamora DO Copies to: MD John Love MD Kristopher L Lindbloom, DO~ ORDERING PHYSICIAN: Dr. Zamora INDICATION FOR STUDY/DIAGNOSIS: CHF PROCEDURE: After informed consent was obtained, the patient received a stress dose of Lexiscan while undergoing continuous 12 lead ECG monitoring. The patient's physical exam prior to administration of Lexiscan was normal. No changes occurred following the administration of Lexiscan. The baseline heart rate was 71 bpm and kathy to a maximum of 71 bpm. The baseline blood pressure was 149/68 and kathy to a maximum of 149/68. The patient had no chest pain following the administration of Lexiscan.? The baseline ECG revealed baseline atrial flutter, paced rhythm. Following administration of Lexiscan, there were no ST-T changes suggestive of ischemia. CONCLUSION: 1. Non-diagnostic Lexiscan ECG study. 2. Nuclear myocardial perfusion report to follow under a separate cover. Transcribed By: abby 05/23/242028 Dictated By: John Nettles MD 05/23/24 112 Signed By: 05/23/242034 [facility] Work Phone: Basic Metabolic Panelon Anion gap [Moles/Vol] 12.7 mmol/L Normal 6.0-15.0 [facility] Comment on above: Performed By: #### G LULS #### Point of Care testing , Calcium [Mass/Vol] 9.0 mg/dL Normal 8.6-10.3 [facility] Comment on above: Performed By: #### G LULS #### Point of Care testing , Chloride [Moles/Vol] 103 mmol/L Normal 98-107 [facility] Comment on above: Performed By: #### G LULS #### Point of Care testing , CO2 [Moles/Vol] 27.0 mmol/L Normal 21.0-31.0 [facility] Comment on above: Performed By: #### G LULS #### Point of Care testing , Creatinine [Mass/Vol] 1.90 mg/dL High 0.70-1.30 [facility] Comment on above: Performed By: #### G LULS #### Point of Care testing , Creatinine Clr Calc Pharmacy 36.62 Normal [facility] Comment on above: Performed By: #### G LULS #### Point of Care testing , Estimated GFR 35.661 mL/Min Normal [facility] Comment on above: Performed By: #### G LULS #### Point of Care testing , Glucose [Mass/Vol] 152 mg/dL High 70-100 [facility] Comment on above: Result Comment: Victor Glucose Reference Range is dependent on time and content of last meal. Glucose of more than 200 mg/dL in a nonstressed, ambulatory subject supports the diagnosis of Diabetes Mellitus. ADA recommended reference range Performed By: #### G LULS #### Point of Care testing , Potassium [Moles/Vol] 3.7 mmol/L Normal 3.5-5.1 [facility] Comment on above: Performed By: #### G LULS #### Point of Care testing , Sodium [Moles/Vol] 139 mmol/L Normal 136-145 [facility] Comment on above: Performed By: #### G LULS #### Point of Care testing , Urea nitrogen [Mass/Vol] 59 mg/dL High 7-25 [facility] Comment on above: Performed By: #### G LULS #### Point of Care testing , Complete Blood Count Auto Di ffon 05-22-2024 Basophils (Bld) [#/Vol] 0.0 10*3/uL Normal 0.0-0.2 [facility] Comment on above: Result Comment: PERF ORMED BY: [address] [place] [address] PATHOLOGIST MANAGER POOL DEMOND ESCOBAR M.D. Performed By: #### G LULS #### Point of Care testing , Basophils/100 WBC (Bld) 0.5 % Normal . [facility] Comment on above: Performed By: #### G LULS #### Point of Care testing , Eosinophils (Bld) [#/Vol] 0.0 10*3/uL Normal 0.0-0.45 [facility] Comment on above: Performed By: #### G LULS #### Point of Care testing , Eosinophils/100 WBC (Bld) 0.0 % Normal . [facility] Comment on above: Performed By: #### G LULS #### Point of Care testing , Erythrocyte distribution width (RBC) [Ratio] 16.4 % High 12.0-14.8 [facility] Comment on above: Performed By: #### G LULS #### Point of Care testing , Hematocrit (Bld) [Volume fraction] 23.5 % Low 38.8-50.0 [facility] Comment on above: Performed By: #### G LULS #### Point of Care testing , Hemoglobin (Bld) [Mass/Vol] 7.9 g/dL Low 13.0-17.0 [facility] Comment on above: Performed By: #### G LULS #### Point of Care testing , Lymphocytes (Bld) [#/Vol] 0.3 10*3/uL Low 1.00-4.8 [facility] Comment on above: Performed By: #### G LULS #### Point of Care testing , Lymphocytes/100 WBC (Bld) 4.8 % Normal . [facility] Comment on above: Performed By: #### G LULS #### Point of Care testing , MCH (RBC) [Entitic mass] 31.8 pg Normal 27.5-35.2 [facility] Comment on above: Performed By: #### G LULS #### Point of Care testing , MCV (RBC) [Entitic vol] 94.7 fL Normal 83.5-101 [facility] Comment on above: Performed By: #### G LULS #### Point of Care testing , Mean Corpuscular HGB Conc 33.5 g/dL Normal 32.5-35.6 [facility] Comment on above: Performed By: #### G LULS #### Point of Care testing , Monocytes (Bld) [#/Vol] 0.1 10*3/uL Normal 0.0-0.8 [facility] Comment on above: Performed By: #### G LULS #### Point of Care testing , Monocytes/100 WBC (Bld) 1.6 % Normal . [facility] Comment on above: Performed By: #### G LULS #### Point of Care testing , Neutrophils (Bld) [#/Vol] 5.0 10*3/uL Normal 1.8-7.7 [facility] Comment on above: Performed By: #### G LULS #### Point of Care testing , Neutrophils/100 WBC (Bld) 93.1 % Normal . [facility] Comment on above: Performed By: #### G LULS #### Point of Care testing , NRBC% 0.0 /100{WBC} Normal 0-0.5 [facility] Comment on above: Performed By: #### G SLOANLS #### Point of Care testing , Platelet mean volume (Bld) [Entitic vol] 7.0 fL Normal 6.6-10.1 [facility] Comment on above: Performed By: #### G SLOANLS #### Point of Care testing , Platelets (Bld) [#/Vol] 195 10*3/uL Normal 150-450 [facility] Comment on above: Performed By: #### G LULS #### Point of Care testing , RBC (Bld) [#/Vol] 2.48 10*6/uL Low 3.90-5.60 [facility] Comment on above: Performed By: #### G SLOANLS #### Point of Care testing , WBC (Bld) [#/Vol] 5.4 10*3/uL Normal 4.1-10.5 [facility] Comment on above: Performed By: #### G SLOANLS #### Point of Care testing , Ferritinon 05-22-2024 Ferritin [Mass/Vol] 717.0 ng/mL High 23.9-336.2 [facility] Comment on above: Performed By: #### G SLOANLS #### Point of Care testing , Ferritin [Mass/volume] in Se rum or PlasmaOrdered By: Richard Zamora on 05-22-2024 Ferritin [Mass/Vol] Ferritin [Mass/volum e] in Serum or Plasma High 23.9-336.2 [facility] Folate [Mass/volume] in Seru m or PlasmaOrdered By: Richard Zamora on 05-22-2024 Folate [Mass/Vol] Folate [Mass/volume] in Serum or Plasma >5.9 [facility] Comment on above: Folate reference ran ge: >5.9 ng/mlThe WHO technical consultation on folate and vitamin [id number] has determined that folate concentrations lessthan 4 ng/ml are considered deficient. Glucose Poct Glucometerson 0 05-22-2024 Glucose [Mass/Vol] 367 mg/dL Normal [facility] Comment on above: Result Comment: [place] om Glucose Reference Range is dependent on time and content of last meal. Glucose of more than 200 mg/dL in a nonstressed, ambulatory subject supports the diagnosis of Diabetes Mellitus. PERFORMED BY: [address] [place] [address] PATHOLOGIST MANAGER POOL DEMOND ESCOBAR M.D. Performed By: #### G LULS #### Point of Care testing , Glucose [Mass/Vol] 358 mg/dL Normal [facility] Comment on above: Result Comment: [place] om Glucose Reference Range is dependent on time and content of last meal. Glucose of more than 200 mg/dL in a nonstressed, ambulatory subject supports the diagnosis of Diabetes Mellitus. PERFORMED BY: [address] [place] [address] PATHOLOGIST MANAGER POOL DEMOND ESCOBAR M.D. Performed By: #### G LULS #### Point of Care testing , Commemt1 Glu2: Cleaned Meter Normal [facility] Comment on above: Result Comment: PERF ORMED BY: [address] [place] [address] PATHOLOGIST MANAGER POOL DEMOND ESCOBAR M.D. Performed By: #### G LULS ####Point of Care testing, Glucose [Mass/Vol] 253 mg/dL Normal [facility] Comment on above: Result Comment: [place] om Glucose Reference Range is dependent on time and content of last meal. Glucose of more than 200 mg/dL in a nonstressed, ambulatory subject supports the diagnosis of Diabetes Mellitus. Performed By: #### G LULS ####Point of Care testing, Glucose [Mass/Vol] 305 mg/dL Normal [facility] Comment on above: Result Comment: Victor om Glucose Reference Range is dependent on time and content of last meal. Glucose of more than 200 mg/dL in a nonstressed, ambulatory subject supports the diagnosis of Diabetes Mellitus. PERFORMED BY: [address] [address] PATHOLOGIST MANAGER POOL DEMOND ESCOBAR M.D. Performed By: #### G LULS #### Point of Care testing , Glucose [Mass/Vol] 226 mg/dL Normal [facility] Comment on above: Result Comment: [facility] [place] Glucose Reference Range is dependent on time and content of last meal. Glucose of more than 200 mg/dL in a nonstressed, ambulatory subject supports the diagnosis of Diabetes Mellitus. PERFORMED BY: [address] [place] [address] PATHOLOGIST MANAGER POOL DEMOND ESCOBAR M.D. Performed By: #### G LULS #### Point of Care testing , MRSA Cultureon 05-22-2024 MRSA Culture No MRSA Isolated 2 Days No growth Day 2. PERFORMED BY: [address] [place] [address] PATHOLOGIST MANAGER POOL DEMOND ESCOBAR M.D. Normal [facility] Comment on above: Performed By: #### G LULS #### Point of Care testing , Magnesiumon 05-22-2024 Magnesium [Mass/Vol] 1.6 mg/dL Low 1.9-2.7 [facility] Comment on above: Performed By: #### G LULS #### Point of Care testing , Vit. B12/Folate Profileon Cobalamin (Vitamin B12) [Mass/Vol] 690 pg/mL Normal 180-914 [facility] Comment on above: Performed By: #### G LULS #### Point of Care testing , Folate 18.5 ng/mL Normal >5.9 [facility] Comment on above: Result Comment: Dana te reference range: >5.9 ng/ml The WHO technical consultation on folate and vitamin b12 deficiencies has determined that folate concentrations less than 4 ng/ml are considered deficient. PERFORMED BY: [address] [address] PATHOLOGIST MANAGER POOL DEMOND ESCOBAR M.D. Performed By: #### G LULS #### Point of Care testing , Vitamin B12 ser/plasOrdered By: Richard Zamora on 05-22-2024 Cobalamin (Vitamin B12) [Mass/Vol] Vitamin B12 ser/plas 180-914 [facility] Wound methicillin resistant Staphylococcus aureus (MRSA) cultureOrdered By: Darshan Willams on 05-22-2024 MRSA isol Org specific cx Ql (Unsp spec) Wound methicillin resistant Staphylococcus aureus (MRSA) culture [facility] A1C with Estimated Average Luli warren 05-21-2024 Glucose [Mass/Vol] 169 mg/dL Normal [facility] Comment on above: Result Comment: PERF ORMED BY: [facility] [address] [place] [address] PATHOLOGIST MANAGER POOL DEMOND ESCOBAR M.D. Performed By: #### G LULS #### Point of Care testing , HbA1c (Bld) [Mass fraction] 7.5 % High 4.3-5.6 [facility] Comment on above: Result Comment: Incr eased risk for diabetes: 5.7 - 6.4 diabetes: >6.4 glycemic control for adults with diabetes: <7.0 Performed By: #### G LULS #### Point of Care testing , Basic Metabolic Panelon Anion gap [Moles/Vol] 10.7 mmol/L Normal 6.0-15.0 [facility] Comment on above: Performed By: #### G LULS #### Point of Care testing , Calcium [Mass/Vol] 8.6 mg/dL Normal 8.6-10.3 [facility] Comment on above: Performed By: #### G LULS #### Point of Care testing , Chloride [Moles/Vol] 102 mmol/L Normal 98-107 [facility] Comment on above: Performed By: #### G LULS #### Point of Care testing , CO2 [Moles/Vol] 26.6 mmol/L Normal 21.0-31.0 [facility] Comment on above: Performed By: #### G LULS #### Point of Care testing , Creatinine [Mass/Vol] 1.82 mg/dL High 0.70-1.30 [facility] Comment on above: Performed By: #### G LULS #### Point of Care testing , Creatinine Clr Calc Pharmacy 38.32 Normal [facility] Comment on above: Performed By: #### G LULS #### Point of Care testing , Estimated GFR 37.550 mL/Min Normal [facility] Comment on above: Performed By: #### G LULS #### Point of Care testing , Glucose [Mass/Vol] 186 mg/dL High 70-100 [facility] Comment on above: Result Comment: Victor Glucose Reference Range is dependent on time and content of last meal. Glucose of more than 200 mg/dL in a nonstressed, ambulatory subject supports the diagnosis of Diabetes Mellitus. ADA recommended reference range Performed By: #### G LULS #### Point of Care testing , Potassium [Moles/Vol] 3.3 mmol/L Low 3.5-5.1 [facility] Comment on above: Performed By: #### G LULS #### Point of Care testing , Sodium [Moles/Vol] 136 mmol/L Normal 136-145 [facility] Comment on above: Performed By: #### G LULS #### Point of Care testing , Urea nitrogen [Mass/Vol] 50 mg/dL High 7-25 [facility] Comment on above: Performed By: #### G LULS #### Point of Care testing , Blood estimated average gluc ose determination by estimation from glycated hemoglobinOrdered By: Don Patel on 05-21-2024 Average glucose Estimated from glycated hemoglobin (Bld) [Mass/Vol] Glucose mean value [Mass/volume] in Blood Estimated from glycated hemoglobin [facility] Complete Blood Count Auto Di ffon 05-21-2024 Basophils (Bld) [#/Vol] 0.1 10*3/uL Normal 0.0-0.2 [facility] Comment on above: Result Comment: PERF ORMED BY: [facility] [address] [place] [address] PATHOLOGIST MANAGER POOL DEMOND ESCOBAR M.D. Performed By: #### G LULS #### Point of Care testing , Basophils/100 WBC (Bld) 0.7 % Normal . [facility] Comment on above: Performed By: #### G LULS #### Point of Care testing , Eosinophils (Bld) [#/Vol] 0.1 10*3/uL Normal 0.0-0.45 [facility] Comment on above: Performed By: #### G LULS #### Point of Care testing , Eosinophils/100 WBC (Bld) 1.7 % Normal . [facility] Comment on above: Performed By: #### G LULS #### Point of Care testing , Erythrocyte distribution width (RBC) [Ratio] 16.2 % High 12.0-14.8 [facility] Comment on above: Performed By: #### G LULS #### Point of Care testing , Hematocrit (Bld) [Volume fraction] 22.5 % Low 38.8-50.0 [facility] Comment on above: Performed By: #### G LULS #### Point of Care testing , Hemoglobin (Bld) [Mass/Vol] 7.6 g/dL Low 13.0-17.0 [facility] Comment on above: Performed By: #### G LULS #### Point of Care testing , Lymphocytes (Bld) [#/Vol] 0.9 10*3/uL Low 1.00-4.8 [facility] Comment on above: Performed By: #### G LULS #### Point of Care testing , Lymphocytes/100 WBC (Bld) 11.5 % Normal . [facility] Comment on above: Performed By: #### G LULS #### Point of Care testing , MCH (RBC) [Entitic mass] 32.1 pg Normal 27.5-35.2 [facility] Comment on above: Performed By: #### G LULS #### Point of Care testing , MCV (RBC) [Entitic vol] 94.3 fL Normal 83.5-101 [facility] Comment on above: Performed By: #### G LULS #### Point of Care testing , Mean Corpuscular HGB Conc 34.0 g/dL Normal 32.5-35.6 [facility] Comment on above: Performed By: #### G LULS #### Point of Care testing , Monocytes (Bld) [#/Vol] 0.5 10*3/uL Normal 0.0-0.8 [facility] Comment on above: Performed By: #### G LULS #### Point of Care testing , Monocytes/100 WBC (Bld) 6.9 % Normal . [facility] Comment on above: Performed By: #### G LULS #### Point of Care testing , Neutrophils (Bld) [#/Vol] 6.1 10*3/uL Normal 1.8-7.7 [facility] Comment on above: Performed By: #### G LULS #### Point of Care testing , Neutrophils/100 WBC (Bld) 79.2 % Normal . [facility] Comment on above: Performed By: #### G LULS #### Point of Care testing , NRBC% 0.0 /100{WBC} Normal 0-0.5 [facility] Comment on above: Performed By: #### G LULS #### Point of Care testing , Platelet mean volume (Bld) [Entitic vol] 7.0 fL Normal 6.6-10.1 [facility] Comment on above: Performed By: #### G LULS #### Point of Care testing , Platelets (Bld) [#/Vol] 170 10*3/uL Normal 150-450 [facility] Comment on above: Performed By: #### G LULS #### Point of Care testing , RBC (Bld) [#/Vol] 2.38 10*6/uL Low 3.90-5.60 [facility] Comment on above: Performed By: #### G LULS #### Point of Care testing , WBC (Bld) [#/Vol] 7.7 10*3/uL Normal 4.1-10.5 [facility] Comment on above: Performed By: #### G LULS #### Point of Care testing , Glucose Poct Glucometerson 0 05-21-2024 Commemt1 Glu2: Cleaned Meter Normal [facility] Comment on above: Result Comment: PERF ORMED BY: [address] [place] [address] PATHOLOGIST MANAGER POOL DEMOND ESCOBAR M.D. Performed By: #### G LULS #### Point of Care testing , Glucose [Mass/Vol] 172 mg/dL Normal [facility] Comment on above: Result Comment: Victor om Glucose Reference Range is dependent on time and content of last meal. Glucose of more than 200 mg/dL in a nonstressed, ambulatory subject supports the diagnosis of Diabetes Mellitus. Performed By: #### G LULS #### Point of Care testing , Glucose [Mass/Vol] 315 mg/dL Normal [facility] Comment on above: Result Comment: Victor om Glucose Reference Range is dependent on time and content of last meal. Glucose of more than 200 mg/dL in a nonstressed, ambulatory subject supports the diagnosis of Diabetes Mellitus. PERFORMED BY: [place] [address] PATHOLOGIST MANAGER POOL DEMOND ESCOBAR M.D. Performed By: #### G LULS #### Point of Care testing , Glucose [Mass/Vol] 315 mg/dL Normal [facility] Comment on above: Result Comment: Victor om Glucose Reference Range is dependent on time and content of last meal. Glucose of more than 200 mg/dL in a nonstressed, ambulatory subject supports the diagnosis of Diabetes Mellitus. PERFORMED BY: [address] [address] PATHOLOGIST MANAGER POOL DEMOND ESCBOAR M.D. Performed By: #### G LULS #### Point of Care testing , Glucose [Mass/Vol] 209 mg/dL Normal [facility] Comment on above: Result Comment: Victor om Glucose Reference Range is dependent on time and content of last meal. Glucose of more than 200 mg/dL in a nonstressed, ambulatory subject supports the diagnosis of Diabetes Mellitus. PERFORMED BY: [facility] [address] [place] [place] [address] PATHOLOGIST MANAGER POOL DEMOND ESCOBAR M.D. Performed By: #### G LULS ####Point of Care testing, Hemoglobin A1c/Hemoglobin.to thierry in BloodOrdered By: Don Patel on 05-21-2024 HbA1c (Bld) [Mass fraction] Hemoglobin A1c percentage High 4.3-5.6 [facility] Comment on above: Increased risk for d iabetes: 5.7 - 6.4diabetes: >6.4glycemic control for adults with diabetes: <7.0 Magnesiumon 05-21-2024 Magnesium [Mass/Vol] 1.8 mg/dL Low 1.9-2.7 [facility] Comment on above: Result Comment: PERF ORMED BY: [facility] [address] [place] [address] PATHOLOGIST MANAGER POOL DEMOND ESCOBAR M.D. Performed By: #### G LULS #### Point of Care testing , Procalcitoninon 05-21-2024 Procalcitonin 0.44 ng/mL High 0.00-0.08 [facility] Comment on above: Order Comment: saurabh valadez is going CT per GRETCHEN GOODEN PLACED IN CHEM--GAVE TO TECH () Result Comment: A pr ocalcitonin (PCT) level above 2.0 ng/mL on the first day of ICU admission is associated with a high risk for progression to severe sepsis and/or septic shock. A PCT level below 0.5 ng/mL on the first day of ICU admission is associated with a low risk for progression to severe sepsis and/or septic shock. Note: Concentrations <0.5 ng/mL do not exclude an infection, on account of localized infections (without systemic signs) which can be associated with such low concentrations, or a systemic infection in its initial stages (<6 hours). Furthermore, increased procalcitonin can occur without infection. PCT concentrations between 0.5 and 2.0 ng/mL should be interpreted taking into account the patient's history. It is recommended to retest PCT within 6-24 hours if any concentrations <2 ng/mL are obtained. Performed at: [facility] [place] [id number] [place], [place] [id number] Filler Shredder Machine: Lyndsay Lawson MD, Phone: [phone] PERFORMED BY: [facility] [address] [place] [address] PATHOLOGIST MANAGER POOL DEMOND ESCOBAR M.D. Performed By: #### E SR, CRP ####[facility] [id number]#### PROCALCITONIN ####[facility] , Procalcitonin [Mass/volume] in Serum or PlasmaOrdered By: Yue Lindsey on 05-21-2024 Procalcitonin [Mass/Vol] Serum procalcitonin measurement High 0.00-0.08 [facility] Comment on above: A procalcitonin (PCT ) level above 2.0 ng/mL on the firstday of ICU admission is associated with a high risk forprogression to severe sepsis and/or septic shock.A PCT level below 0.5 ng/mL on the first day of ICUadmission is associated with a low risk for progressionto severe sepsis and/or septic shock.Note: Concentrations <0.5 ng/mL do not exclude aninfection, on account of localized infections (withoutsystemic signs) which can be associated with such lowconcentrations, or a systemic infection in its initialstages (<6 hours).Furthermore, increased procalcitonin can occur withoutinfection. PCT concentrations between 0.5 and 2.0 ng/mLshould be interpreted taking into account the patient'shistory. It is recommended to retest PCT within 6-24 hoursif any concentrations <2 ng/mL are obtained.Performed at: [id number] [place], [place] [id number] Director: Lyndsay Lawson MD, Phone: [phone] MARKELL with Reflexon 05-20-2024 MARKELL with Reflex Negative Normal Negative [facility] Comment on above: Order Comment: saurabh nt is going CT per RN GIACOMO PLACED IN CHEM--GAVE TO TECH () Result Comment: Perf ormed at: - [address] [id number] Filler Shredder Machine: Francisco Gonzalez PhD, Phone: [phone] Performed By: #### G LULS #### Point of Care testing , ANCA Profile (ANCA+MPO+PR3)o n 05-20-2024 Antimyeloperoxidase (MPO) Abs <0.2 Normal 0.0-0.9 [facility] Comment on above: Order Comment: saurabh nt is going CT per RN GIACOMO PLACED IN CHEM--GAVE TO TECH () Performed By: #### G LULS #### Point of Care testing , Atypical pANCA <1:20 Normal Neg:<1:20 [facility] Comment on above: Order Comment: jme nt is going CT per RN GIACOMO PLACED IN CHEM--GAVE TO TECH () Result Comment: The atypical pANCA pattern has been observed in a significant percentage of patients with ulcerative colitis, primary sclerosing cholangitis and autoimmune hepatitis. Performed at: [facility] [address] [id number] Filler Shredder Machine: Lyndsay Lawson MD, Phone: [phone] Performed at: [facility] [address] [id number] Filler Shredder Machine: Francisco Gonzalez PhD, Phone: [phone] Performed By: #### G LULS #### Point of Care testing , Cytoplasmic (C-ANCA) <1:20 Normal Neg:<1:20 [facility] Comment on above: Order Comment: jme nt is going CT per RN GIACOMO PLACED IN CHEM--GAVE TO TECH () Performed By: #### G LULS #### Point of Care testing , Perinuclear (P-ANCA) <1:20 Normal Neg:<1:20 [facility] Comment on above: Order Comment: jme nt is going CT per RN GIACOMO PLACED IN CHEM--GAVE TO TECH () Result Comment: The presence of positive fluorescence exhibiting P-ANCA or C-ANCA patterns alone is not specific for the diagnosis of Minda's Granulomatosis (WG) or microscopic polyangiitis. Decisions about treatment should not be based solely on ANCA IFA results. The International ANCA Group Consensus recommends follow up testing of positive sera with both MD- 3 and MPO-ANCA enzyme immunoassays. As many as 5% serum samples are positive only by EIA. Ref. AM J Clin Pathol 1999;111:507-513. Performed By: #### G LULS #### Point of Care testing , Proteinase 3 (PR3) Antibodies <0.2 Normal 0.0-0.9 [facility] Comment on above: Order Comment: saurabh nt is going CT per GRETCHEN GOODEN PLACED IN CHEM--GAVE TO TECH () Result Comment: PERF ORMED BY: [address] [address] PATHOLOGIST MANAGER POOL DEMOND ESCOBAR M.D. Performed By: #### G LULS #### Point of Care testing , Aerobic Cultureon 05-20-2024 Aerobic Culture Light Normal Respiratory Elin 2 Days Gram Stain Result 2+ White Blood Cells 1+ Epithelial Cells Rare Gram Positive Cocci PERFORMED BY: [address] [place] [address] PATHOLOGIST MANAGER POOL DEMOND ESCOBAR M.D. Normal [facility] Comment on above: Performed By: #### G LULS #### Point of Care testing , Aerobic cultureOrdered By: Jose Eduardo Lindsey on 05-20-2024 Bacteria identified Aer cx Nom (Unsp spec) Aerobic culture [facility] Alanine aminotransferase [En zymatic activity/volume] in Serum or PlasmaOrdered By: Don Patel on 05-20-2024 ALT [Catalytic activity/Vol] Alanine aminotransferase [Enzymatic activity/volume] in Serum or Plasma [facility] Albumin [Mass/volume] in Ser um or Plasma by Bromocresol green (BCG) dye binding methoOrdered By: Don Patel on 05-20-2024 Albumin BCG dye [Mass/Vol] Albumin [Mass/volume] in Serum or Plasma by Bromocresol green (BCG) dye binding metho Low 3.5-5.7 [facility] Alkaline phosphatase [Enzyma tic activity/volume] in Serum or PlasmaOrdered By: Don Patel on 05-20-2024 ALP [Catalytic activity/Vol] Alkaline phosphatase [Enzymatic activity/volume] in Serum or Plasma 34-104 [facility] Arterial Blood Gason 025 ABG Base Excess 0.0 mmol/L Normal -3.0-3.0 [facility] Comment on above: Performed By: #### G LULS #### Point of Care testing , ABG Frac Inspired O2 65 % Normal [facility] Comment on above: Performed By: #### G LULS #### Point of Care testing , ABG Oxygen Content 5.2 mmol/L Low 6.6-9.7 [facility] Comment on above: Performed By: #### G LULS #### Point of Care testing , ABG Oxygen Saturation 97.8 % Normal 95.0-100.0 [facility] Comment on above: Performed By: #### G LULS #### Point of Care testing , ABG PCO2 31.0 mm[Hg] Low 35.0-45.0 [facility] Comment on above: Performed By: #### G LULS #### Point of Care testing , ABG PH 7.49 High 7.35-7.45 [facility] Comment on above: Performed By: #### G LULS #### Point of Care testing , ABG PO2 100.8 mm[Hg] High 80.0-100.0 [facility] Comment on above: Performed By: #### G LULS #### Point of Care testing , ABG Pressure Support 6.0 cmH20 Normal [facility] Comment on above: Performed By: #### G LULS #### Point of Care testing , CPAP 16.0 cmH20 Normal [facility] Comment on above: Performed By: #### G LULS #### Point of Care testing , Respiratory Critical Normal [facility] Comment on above: Result Comment: Crit ical Value called on: 05/20/2024 at 04:00 PERFORMED BY: [facility] [place] [address] PATHOLOGIST MANAGER POOL DEMOND ESCOBAR M.D. Performed By: #### G LULS #### Point of Care testing , Set Respiratory Rate 12 Normal [facility] Comment on above: Performed By: #### G LULS #### Point of Care testing , VBG Draw Site Right Radial Normal [facility] Comment on above: Performed By: #### G LULS #### Point of Care testing , Arterial Blood GasOrdered By : Don Patel on 05-20-2024 CO2 [Moles/Vol] 24.0 mmol/L Normal 23.0-27.0 [facility] Comment on above: Performed By: #### G LULS #### Point of Care testing , HCO3 (Bld) [Moles/Vol] 23.1 mmol/L Normal 23.0-29.0 [facility] Comment on above: Performed By: #### G LULS #### Point of Care testing , Aspartate aminotransferase [ Enzymatic activity/volume] in Serum or PlasmaOrdered By: Don Patel on 05-20-2024 AST [Catalytic activity/Vol] Aspartate aminotransferase [Enzymatic activity/volume] in Serum or Plasma Low 13-39 [facility] Atypical perinuclear antineu trophil cytoplasmic antibodies measurementOrdered By: Yue Lindsey on 05-20-2024 Atypical p-ANCA <1:20 titer Neg:<1:20 [facility] Comment on above: The atypical pANCA p attern has been observed in asignificant percentage of patients with ulcerative colitis,primary sclerosing cholangitis and autoimmune hepatitis.Performed at: - [facility] [id number] Director: Lyndsay Lawson MD, Phone: [phone] at: - [facility] [address] [id number] Director: Francisco Gonzalez PhD, Phone: [phone] B-Type Natriuretic Peptideon 05-20-2024 Natriuretic peptide B (Bld) [Mass/Vol] 2348.0 pg/mL High 5-100 [facility] Comment on above: Order Comment: patie nt is going CT per GRETCHEN GOODEN Result Comment: PERF ORMED BY: [facility] [address] [place] [address] PATHOLOGIST MANAGER POOL DEMOND ESCOBAR M.D. Performed By: #### G LULS #### Point of Care testing , Bilirubin.total [Mass/volume ] in Serum or PlasmaOrdered By: Don Patel on 05-20-2024 Bilirubin [Mass/Vol] Bilirubin.total [Mass/volume] in Serum or Plasma 0.3-1.0 [facility] C Urineon 05-20-2024 Bacteria identified Cx Nom (U) Microbiology PROCEDURE: Urine Culture [R1] SOURCE: U Random BODY SITE: COLLECTED DATE/TIME: 05/18/2024 11:46 EST RECEIVED DATE/TIME: 05/18/2024 17:29 EST START DATE/TIME: 05/18/2024 17:29 EST FREE TEXT SOURCE: Josep SANDHU, Mica Car MD, Mica Johns FINAL REPORTS Final Report [] Verified Date/Time: 05/20/2024 07:47 EST 500 cfu/ml Mixed skin contaminants Performing Locations R1: This test was performed at: [facility], [address] [place] [address], [id number] , , [facility] Comment on above: Performed By: #### [id number] #### [facility] [address] [place] [id number] C reactive protein [Mass/vol ume] in Serum or PlasmaOrdered By: Yue Lindsey on 05-20-2024 CRP [Mass/Vol] C reactive protein [Mass/volume] in Serum or Plasma High 0.0-0.5 [facility] C-Reactive Proteinon 025 C-Reactive Protein 25.3 mg/dL High 0.0-0.5 [facility] Comment on above: Order Comment: saurabh nt is going CT per GRETCHEN GOODEN Result Comment: PERF ORMED BY: [facility] [address] [place] [address] PATHOLOGIST MANAGER POOL DEMOND ESCOBAR M.D. Performed By: #### G LULS #### Point of Care testing , CT chest wo conon 05-20-2024 CT chest wo con [facility] [place] [address] [place] [address] CT Scan Report Signed Patient: Leighton Arciniega MR#: [id number] : 1945 Acct:[id number] Age/Sex: 78 / M ADM Date: 05/20/24 Loc: Room: [address] [place] [address] Type: ADM IN Attending Dr: Clau Edwards MD Copies to: MD Clau Nevarez MD Ordering Provider: Yue Lindsey MD Date of Service: 05/20/24 CT/CT chest wo con: Pulmonary infiltrates CT CHEST WITHOUT IV CONTRAST: CLINICAL HISTORY: Respiratory distress. COMPARISON: CT chest 05/20/2024 TECHNIQUE: Spiral images were obtained through the chest without IV contrast. This CT exam was performed using one or more following dose reduction techniques: Automated exposure control, adjustment of the mA and/or kV according to patient size, or use of iterative reconstruction technique. FINDINGS: Mediastinum:Thoracic aorta demonstrates moderate calcification without aneurysm. Pacemaker device. Cardiomegaly. No pleural effusion. Pulmonary trunk appears nondilated. Multiple prominent mediastinal lymph nodes largest involving the pretracheal region measuring 1 cm in short axis. The esophagus is grossly unremarkable. Lungs:Small bilateral pleural effusions. Scattered areas of groundglass/septal thickening. No pneumothorax. Trachea and distal airways appear patent. Abd:No acute process. Soft tissues/Bones: No acute process. Osseous structures demonstrate degenerative change. CT/CT chest wo con IMPRESSION: Scattered areas of groundglass and septal thickening with small bilateral pleural effusions. Findings may relate to CHF/pulmonary edema given the cardiomegaly. An atypical infectious process cannot BE excluded. CT follow-up is recommended to ensure resolution. Impression dictated by: Swapnil Edwards Jr., D.O.05/20/2024 1:14 PM Dictation Location: [place] [address] Transcribed By: [facility] 05/20/24 1314 Dictated By: Swapnil Edwards Jr, DO 05/20/24 1312 Signed By: 05/20/24 1314 Normal [facility] Complete Blood Count Auto Di ffon 05-20-2024 Basophils (Bld) [#/Vol] 0.1 10*3/uL Normal 0.0-0.2 [facility] Comment on above: Result Comment: PERF ORMED BY: [place] [address] PATHOLOGIST MANAGER POOL DEMOND ESCOBAR M.D. Performed By: #### G LULS #### Point of Care testing , Basophils/100 WBC (Bld) 0.6 % Normal . [facility] Comment on above: Performed By: #### G LULS #### Point of Care testing , Eosinophils (Bld) [#/Vol] 0.0 10*3/uL Normal 0.0-0.45 [facility] Comment on above: Performed By: #### G LULS #### Point of Care testing , Eosinophils/100 WBC (Bld) 0.2 % Normal . [facility] Comment on above: Performed By: #### G LULS #### Point of Care testing , Erythrocyte distribution width (RBC) [Ratio] 16.4 % High 12.0-14.8 [facility] Comment on above: Performed By: #### G LULS #### Point of Care testing , Hematocrit (Bld) [Volume fraction] 22.1 % Low 38.8-50.0 [facility] Comment on above: Performed By: #### G LULS #### Point of Care testing , Hemoglobin (Bld) [Mass/Vol] 7.6 g/dL Low 13.0-17.0 [facility] Comment on above: Performed By: #### G LULS #### Point of Care testing , Lymphocytes (Bld) [#/Vol] 0.8 10*3/uL Low 1.00-4.8 [facility] Comment on above: Performed By: #### G LULS #### Point of Care testing , Lymphocytes/100 WBC (Bld) 8.3 % Normal . [facility] Comment on above: Performed By: #### G LULS #### Point of Care testing , MCH (RBC) [Entitic mass] 32.4 pg Normal 27.5-35.2 [facility] Comment on above: Performed By: #### G LULS #### Point of Care testing , MCV (RBC) [Entitic vol] 94.3 fL Normal 83.5-101 [facility] Comment on above: Performed By: #### G LULS #### Point of Care testing , Mean Corpuscular HGB Conc 34.4 g/dL Normal 32.5-35.6 [facility] Comment on above: Performed By: #### G LULS #### Point of Care testing , Monocytes (Bld) [#/Vol] 0.6 10*3/uL Normal 0.0-0.8 [facility] Comment on above: Performed By: #### G LULS #### Point of Care testing , Monocytes/100 WBC (Bld) 6.5 % Normal . [facility] Comment on above: Performed By: #### G LULS #### Point of Care testing , Neutrophils (Bld) [#/Vol] 7.9 10*3/uL High 1.8-7.7 [facility] Comment on above: Performed By: #### G LULS #### Point of Care testing , Neutrophils/100 WBC (Bld) 84.4 % Normal . [facility] Comment on above: Performed By: #### G LULS #### Point of Care testing , NRBC% 0.0 /100{WBC} Normal 0-0.5 [facility] Comment on above: Performed By: #### G LULS #### Point of Care testing , Platelet mean volume (Bld) [Entitic vol] 7.0 fL Normal 6.6-10.1 [facility] Comment on above: Performed By: #### G LULS #### Point of Care testing , Platelets (Bld) [#/Vol] 148 10*3/uL Low 150-450 [facility] Comment on above: Performed By: #### G LULS #### Point of Care testing , RBC (Bld) [#/Vol] 2.34 10*6/uL Low 3.90-5.60 [facility] Comment on above: Performed By: #### G LULS #### Point of Care testing , WBC (Bld) [#/Vol] 9.4 10*3/uL Normal 4.1-10.5 [facility] Comment on above: Performed By: #### G LULS #### Point of Care testing , Comprehensive Metabolic Pane marshall 05-20-2024 Albumin [Mass/Vol] 2.7 g/dL Low 3.5-5.7 [facility] Comment on above: Performed By: #### G LULS #### Point of Care testing , Albumin/Globulin [Mass ratio] 1.2 {ratio} Normal [facility] Comment on above: Performed By: #### G LULS #### Point of Care testing , ALP [Catalytic activity/Vol] 52 U/L Normal 34-104 [facility] Comment on above: Performed By: #### G SLOANLS #### Point of Care testing , ALT [Catalytic activity/Vol] 9 U/L Normal 7-52 [facility] Comment on above: Performed By: #### G SLOANLS #### Point of Care testing , Anion gap [Moles/Vol] 13.6 mmol/L Normal 6.0-15.0 [facility] Comment on above: Performed By: #### G LULS #### Point of Care testing , AST [Catalytic activity/Vol] 10 U/L Low 13-39 [facility] Comment on above: Performed By: #### G SLOANLS #### Point of Care testing , Bilirubin [Mass/Vol] 0.6 mg/dL Normal 0.3-1.0 [facility] Comment on above: Performed By: #### G SLOANLS #### Point of Care testing , Calcium [Mass/Vol] 8.1 mg/dL Low 8.6-10.3 [facility] Comment on above: Performed By: #### G LULS #### Point of Care testing , Chloride [Moles/Vol] 102 mmol/L Normal 98-107 [facility] Comment on above: Performed By: #### G SLOANLS #### Point of Care testing , CO2 [Moles/Vol] 23.0 mmol/L Normal 21.0-31.0 [facility] Comment on above: Performed By: #### G LULS #### Point of Care testing , Creatinine [Mass/Vol] 1.63 mg/dL High 0.70-1.30 [facility] Comment on above: Performed By: #### G LULS #### Point of Care testing , Creatinine Clr Calc Pharmacy 42.96 Normal [facility] Comment on above: Performed By: #### G LULS #### Point of Care testing , Estimated GFR 42.862 mL/Min Normal [facility] Comment on above: Performed By: #### G LULS #### Point of Care testing , Globulin (S) [Mass/Vol] 2.3 g/dL Normal [facility] Comment on above: Performed By: #### G LULS #### Point of Care testing , Glucose [Mass/Vol] 165 mg/dL High 70-100 [facility] Comment on above: Result Comment: [facility] Glucose Reference Range is dependent on time and content of last meal. Glucose of more than 200 mg/dL in a nonstressed, ambulatory subject supports the diagnosis of Diabetes Mellitus. ADA recommended reference range Performed By: #### G LULS #### Point of Care testing , Potassium [Moles/Vol] 3.6 mmol/L Normal 3.5-5.1 [facility] Comment on above: Performed By: #### G LULS #### Point of Care testing , Protein [Mass/Vol] 5.0 g/dL Low 6.4-8.9 [facility] Comment on above: Performed By: #### G LULS #### Point of Care testing , Sodium [Moles/Vol] 135 mmol/L Low 136-145 [facility] Comment on above: Performed By: #### G LULS #### Point of Care testing , Urea nitrogen [Mass/Vol] 45 mg/dL High 7-25 [facility] Comment on above: Performed By: #### G LULS #### Point of Care testing , Continuous positive airway p ressure Respiratory systemOrdered By: Don Patel on 05-20-2024 Continuous positive airway pressure Respiratory system Positive [facility] Erythrocyte Sedimentation Ra eufemia 05-20-2024 ESR (Bld) [Velocity] 49 mm/h High 0-19 [facility] Comment on above: Order Comment: saurabh valadez is going CT per GRETCHEN GOODEN Result Comment: PERF ORMED BY: [place] [address] PATHOLOGIST MANAGER POOL DEMOND ESCOBAR M.D. Performed By: #### E SR, CRP ####[facility] [id number]#### PROCALCITONIN ####[facility] , Erythrocyte sedimentation ra te by Photometric methodOrdered By: Yue Lindsey on 05-20-2024 ESR Photometric method (Bld) [Velocity] Erythrocyte sedimentation rate by Photometric method High 0-19 [facility] Globulin Calc (S) [Mass/Vol] Ordered By: Don Patel on 05-20-2024 Globulin (S) [Mass/Vol] Serum globulin measurement by calculation (mass/volume) [facility] Glucose Poct Glucometerson 0 05-20-2024 Commemt1 Glu2: Cleaned Meter Normal [facility] Comment on above: Result Comment: PERF ORMED BY: [place] [address] PATHOLOGIST MANAGER POOL DEMOND ESCOBAR M.D. Performed By: #### G LULS #### Point of Care testing , Glucose [Mass/Vol] 300 mg/dL Normal [facility] Comment on above: Result Comment: [facility] Glucose Reference Range is dependent on time and content of last meal. Glucose of more than 200 mg/dL in a nonstressed, ambulatory subject supports the diagnosis of Diabetes Mellitus. Performed By: #### G LULS #### Point of Care testing , Commemt1 Glu2: Cleaned Meter Normal [facility] Comment on above: Result Comment: PERF ORMED BY: [facility] [address] [place] [phone] PATHOLOGIST MANAGER POOL DEMOND ESCOBAR M.D. Performed By: #### G LULS #### Point of Care testing , Glucose [Mass/Vol] 258 mg/dL Normal [facility] Comment on above: Result Comment: [facility] Glucose Reference Range is dependent on time and content of last meal. Glucose of more than 200 mg/dL in a nonstressed, ambulatory subject supports the diagnosis of Diabetes Mellitus. Performed By: #### G LULS #### Point of Care testing , Gram Stainon 05-20-2024 Microscopic observation Gram stain Nom (Unsp spec) Gram Stain Result 2+ White Blood Cells 1+ Epithelial Cells Rare Gram Positive Cocci PERFORMED BY: [facility] [address] [place] [address] PATHOLOGIST MANAGER POOL DEMOND ESCOBAR M.D. Normal [facility] Comment on above: Performed By: #### G LULS #### Point of Care testing , Gram stain microscopyOrdered By: Yue Lindsey on 05-20-2024 Microscopic observation Gram stain Nom (Unsp spec) Gram stain microscopy [facility] Hemogram CBC Without Diffon 05-20-2024 Erythrocyte distribution width (RBC) [Ratio] 16.6 % High 12.0-14.8 [facility] Comment on above: Order Comment: patie nt is going CT per RN GIACOMO Performed By: #### C BCNO ####[place] [id number] [facility] Hematocrit (Bld) [Volume fraction] 23.7 % Low 38.8-50.0 [facility] Comment on above: Order Comment: patie nt is going CT per RN GIACOMO Performed By: #### C BCNO ####[place] [id number] [facility] Hemoglobin (Bld) [Mass/Vol] 8.0 g/dL Low 13.0-17.0 [facility] Comment on above: Order Comment: patie nt is going CT per RN GIACOMO Performed By: #### C BCNO ####[address] [place] [address] [place] MCH (RBC) [Entitic mass] 32.3 pg Normal 27.5-35.2 [facility] Comment on above: Order Comment: patie nt is going CT per RN GIACOMO Performed By: #### C BCNO ####[address] MCV (RBC) [Entitic vol] 95.4 fL Normal 83.5-101 [facility] Comment on above: Order Comment: patie nt is going CT per RN GIACOMO Performed By: #### C BCNO ####[address] Mean Corpuscular HGB Conc 33.9 g/dL Normal 32.5-35.6 [facility] Comment on above: Order Comment: patie nt is going CT per RN GIACOMO Performed By: #### C BCNO ####[address] Platelet mean volume (Bld) [Entitic vol] 7.1 fL Normal 6.6-10.1 [facility] Comment on above: Order Comment: patie nt is going CT per RN GIACOMO Result Comment: PERF ORMED BY: [facility] [address] [place] [address] PATHOLOGIST MANAGER POOL DEMOND ESCOBAR M.D. Performed By: #### C BCNO ####[address] Platelets (Bld) [#/Vol] 155 10*3/uL Normal 150-450 [facility] Comment on above: Order Comment: patie nt is going CT per RN GIACOMO Performed By: #### C BCNO ####[address] RBC (Bld) [#/Vol] 2.48 10*6/uL Low 3.90-5.60 [facility] Comment on above: Order Comment: patie nt is going CT per RN GIACOMO Performed By: #### C BCNO ####[address] [place] [address] [facility] WBC (Bld) [#/Vol] 8.4 10*3/uL Normal 4.1-10.5 [facility] Comment on above: Order Comment: saurabh nt is going CT per GRETCHEN GOODEN Performed By: #### C BCNO ####[facility] [place] [id number] [facility] Iron [Mass/volume] in Serum or PlasmaOrdered By: Clau Edwards on 05-20-2024 Iron [Mass/Vol] Iron [Mass/volume] i n Serum or Plasma Low 50-212 [facility] Iron and TIBC Profileon % Iron Saturation 8.3 % Low 20-50 [facility] Comment on above: Performed By: #### G LULS #### Point of Care testing , Iron [Mass/Vol] 10 ug/dL Low 50-212 [facility] Comment on above: Performed By: #### G LULS #### Point of Care testing , Total Iron Binding Capacity 120 ug/dL Low 255-450 [facility] Comment on above: Performed By: #### G LULS #### Point of Care testing , Transferrin [Mass/Vol] 86 mg/dL Low 203-362 [facility] Comment on above: Result Comment: PERF ORMED BY: [address] [place] [id number] PATHOLOGIST MANAGER POOL DEMOND ESCOBAR M.D. Performed By: #### G LULS #### Point of Care testing , Magnesiumon 05-20-2024 Magnesium [Mass/Vol] 1.7 mg/dL Low 1.9-2.7 [facility] Comment on above: Result Comment: PERF ORMED BY: [facility] [address] [facility] [id number] PATHOLOGIST MANAGER POOL DEMOND ESCOBAR M.D. Performed By: #### G LULS #### Point of Care testing , Myeloperoxidase Ab [Units/vo lume] in Serum by ImmunoassayOrdered By: Yue Lindsey on 05-20-2024 Myeloperoxidase Ab IA Qn (S) Myeloperoxidase Ab [Units/volume] in Serum by Immunoassay 0.0-0.9 [facility] Natriuretic peptide B [Mass/ Vol]Ordered By: Yue Lindsey on 05-20-2024 Natriuretic peptide B (Bld) [Mass/Vol] BNP ser/plas High 5-100 [facility] No Panel InformationOrdered By: Don Patel on 05-20-2024 Arterial Blood Base Excess 0.0 mmol/L -3.0-3.0 [facility] Arterial Blood Oxygen Content 5.2 mmol/L Low 6.6-9.7 [facility] Arterial Blood Oxygen Saturation 97.8 % 95.0-100.0 [facility] Arterial Blood Partial Pressure CO2 31.0 mm[Hg] Low 35.0-45.0 [facility] Arterial Blood Partial Pressure O2 100.8 mm[Hg] High 80.0-100.0 [facility] Arterial Blood pH 7.49 High 7.35-7.45 [facility] Blood Gas Critical Value See comment [facility] Comment on above: Critical Value barber d on: 05/20/2024 at 04:00 Blood Gas Pressure Support 6.0 cmH2O [facility] Blood Gas Sample Site Right radial F [facility] Blood Gas Set Respiration Rate 12 [facility] FiO2 65 % [facility] Perinuclear antineutrophil c ytoplasmic antibody (p-ANCA) assayOrdered By: Yue Lindsey on 05-20-2024 Perinuclear ANCA (p-ANCA) Antibody <1:20 titer Neg:<1:20 [facility] Comment on above: The presence of posi tive fluorescence exhibiting P-ANCA orC-ANCA patterns alone is not specific for the diagnosis ofWegener's Granulomatosis (WG) or microscopic polyangiitis.Decisions about treatment should not be based solely onANCA IFA results. The International ANCA Group Consensusrecommends follow up testing of positive sera with both MD-3 and MPO-ANCA enzyme immunoassays. As many as 5% serumsamples are positive only by EIA. Ref. AM J Clin [id number];111:507-513. Protein [Mass/volume] in Ser um or PlasmaOrdered By: Don Patel on 05-20-2024 Protein [Mass/Vol] Protein [Mass/volume ] in Serum or Plasma Low 6.4-8.9 [facility] Proteinase 3 Ab [Units/volum e] in Serum by ImmunoassayOrdered By: Yue Lindsey on 05-20-2024 Proteinase 3 Ab IA Qn (S) Proteinase 3 Ab [Units/volume] in Serum by Immunoassay 0.0-0.9 [facility] Serum classic neutrophil cyt oplasmic antibody titer by immunofluorescenceOrdered By: Yue Lindsey on 05-20-2024 Neutrophil cytoplasmic Ab.classic IF (S) [Titer] Serum classic neutrophil cytoplasmic antibody titer by immunofluorescence Neg:<1:20 [facility] Serum or plasma albumin/glob ulin mass ratioOrdered By: Don Patel on 05-20-2024 Albumin/Globulin [Mass ratio] Serum or plasma albumin/globulin mass ratio [facility] Serum or plasma free cefurox maicol measurement (mass/volume)Ordered By: Yue Lindsey on 05-20-2024 Cefuroxime free [Mass/Vol] Serum or plasma free cefuroxime measurement (mass/volume) Negative [facility] Comment on above: Performed at: [place] [id number] Director: Francisco Gonzalez PhD, Phone: [phone] Serum or plasma iron binding capacity measurement (mass/volume)Ordered By: Clau Edwards on 05-20-2024 Iron binding capacity [Mass/Vol] Iron binding capacity [Mass/volume] in Serum or Plasma Low 255-450 [facility] Serum or plasma iron saturat ion measurement (mass fraction)Ordered By: Clau Edwards on 05-20-2024 Iron saturation [Mass fraction] Iron saturation [Mass Fraction] in Serum or Plasma Low 20-50 [facility] Stool Occult Blood (Guaiac)o n 05-20-2024 Stool Occult Blood (Guaiac) Occult Blood Negative for Occult Blood by Guaiac Methodology Reference range = Negative PERFORMED BY: [place] [address] PATHOLOGIST MANAGER POOL DEMOND ESCOBAR M.D. Normal [facility] Comment on above: Performed By: #### G LULS #### Point of Care testing , Stool gastrointestinal hemog lobin detectionOrdered By: Clau Edwards on 05-20-2024 Hemoglobin.gastrointes tinal Ql (Stl) Stool gastrointestinal hemoglobin detection [facility] Transferrin [Mass/volume] in Serum or PlasmaOrdered By: Clau Edwards on 05-20-2024 Transferrin [Mass/Vol] Transferrin [Mass/volume] in Serum or Plasma Low 203-362 [facility] X-ray reportOrdered By: Aaron Edwards on 05-20-2024 Study report [facility] Main [address] [address] XRay Report Signed Patient: Leighton Arciniega MR#: [id number] : 1945 Acct:[id number] Age/Sex: 78 / M ADM Date: 5 Loc: Room: [address] [place] [address] Type: ADM IN Attending Dr: Clau Edwards MD Copies to: MD Don Rojas DO~ Ordering Provider: Don Patel DO Date of Service: 05/20/24 XR/XR chest 1V portable: bipap dependent, sob SINGLE VIEW CHEST CLINICAL HISTORY: Shortness of breath. COMPARISON: Chest 05/12/2024 FINDINGS: Pacemaker device is in place. Heart appears unchanged in size. Worsening bilateral airspace disease. No pneumothorax or free air. XR/XR chest 1V portable IMPRESSION: WORSENING BILATERAL AIRSPACE DISEASE. Impression dictated by: Swapnil Edwards Jr., D.OAnisa05/20/2024 8:49 AM Dictation Location: [facility]-18 Transcribed By: [facility] 05/20/24 0849 Dictated By: Swapnil Edwards Jr, DO 05/20/24 0848 Signed By: 05/20/24 0849 [facility] XR chest 1V portableon 05-20 XR chest 1V portable [facility] Main [place] [address] [place] [address] XRay Report Signed Patient: Leighton Arciniega MR#: [id number] : 1945 Acct:[id number] Age/Sex: 78 / M ADM Date: 05/20/24 Loc: Room: [address] [place] [address] Type: ADM IN Attending Dr: Clau Edwards MD Copies to: MD Don Rojas DO Ordering Provider: Don Patel DO Date of Service: 05/20/24 XR/XR chest 1V portable: bipap dependent, sob SINGLE VIEW CHEST CLINICAL HISTORY: Shortness of breath. COMPARISON: Chest 05/12/2024 FINDINGS: Pacemaker device is in place. Heart appears unchanged in size. Worsening bilateral airspace disease. No pneumothorax or free air. XR/XR chest 1V portable IMPRESSION: WORSENING BILATERAL AIRSPACE DISEASE. Impression dictated by: Swapnil Edwards Jr., D.OAnisa05/20/2024 8:49 AM Dictation Location: [facility]18 Transcribed By: [facility] 05/20/24 0849 Dictated By: Swapnil Edwards Jr, DO 05/20/24 0848 Signed By: 05/20/24 0849 Normal [facility] Ambulatory Visit Summaryon 0 05-18-2024 Ambulatory Visit Summary Ambulatory Visit Summary LEIGHTON ARCINIEGA :1945 Visit Date:05/18/2024 Ambulatory Visit Instructions Your Diagnosis Urinary retention BPH with urinary obstruction Cloudy urine Anticoagulated Your Care Team Attending Physician - Jospe SANDHU, Mica Johns Primary Care Physician - Lori Medina MD This Is Your Medications List allopurinol (allopurinol 300 mg Tab) finasteride (finasteride 5 mg Tab) sildenafil (sildenafil 100 mg Tab) terazosin (terazosin 10 mg Cap) Contact prescribing physician if questions or concerns acetaminophen (Tylenol Extra Strength 500 mg oral tablet) albuterol (albuterol 0.083% Inh Nasrin 3 mL) apixaban (Eliquis 5 mg oral tablet) aspirin (aspirin 325 mg Tab) bumetanide (bumetanide 0.5 mg Tab) calcium-vitamin D (calcium-vitamin D 600 mg-400 intl units oral tablet) carvedilol cyanocobalamin (Vitamin B12 1000 mcg Tab) cyanocobalamin (cyanocobalamin 1000 mcg Tab) hydrALAZINE (hydrALAZINE 50 mg Tab) insulin glargine (Lantus) isosorbide mononitrate levofloxacin (levofloxacin 750 mg Tab) multivitamin (Multi Vitamins oral tablet) omeprazole (omeprazole 20 mg Cap-DR) potassium chloride semaglutide (Ozempic (1 mg dose)) simvastatin (simvastatin 20 mg Tab) spironolactone (spironolactone 25 mg Tab) tuberculin purified protein derivative (Aplisol 5 TU/0.1 mL Injection) Procedures Performed Cystoscopy (05/18/2024), Pacemaker (08/15/2016), Arthroscopy of knee, Colonoscopy, Ring finger Amputation, Tonsillectomy. Discharge Vitals Heart Rate (Peripheral) 98 Respiratory Rate 18 Blood Pressure 148/78 Height 177 cm Height 70 in Weight 95.6 kg Weight 210.762 lb BMI 30.51 What to do next Scheduled Follow-Up Appointments 2024 11:00 AM EDT With: Where: Cardiovascular Services Wednesday 10:00 AM EDT With: Deepti Powell PA-C Where: [facility] [address] [place] [address]- You Need to Schedule the Following Appointments Follow Up with Josep SANDHU, MIGUELITO Richard, URO When: Where: Medications What How Much When Instructions Unchanged allopurinol (allopurinol 300 mg Tab) 1 Tablets By Mouth Every day Unchanged finasteride (finasteride 5 mg Tab) 1 Tablets By Mouth Every day Unchanged sildenafil (sildenafil 100 mg Tab) 1 Tablets By Mouth As Directed as needed for for erectile dysfunction Take one tab 1 hour prior to sexual activity. Unchanged terazosin (terazosin 10 mg Cap) 1 Capsules By Mouth Once a day (at bedtime) Unchanged acetaminophen (Tylenol Extra Strength 500 mg oral tablet) 2 Tablets By Mouth Every day as needed for for pain Contact prescribing physician if questions or concerns Unchanged albuterol (albuterol 0.083% Inh Nasrin 3 mL) Contact prescribing physician if questions or concerns Unchanged apixaban (Eliquis 5 mg oral tablet) 1 Tablets By Mouth 2 times a day Contact prescribing physician if questions or concerns Unchanged aspirin (aspirin 325 mg Tab) 1 Tablets By Mouth Every day Contact prescribing physician if questions or concerns Unchanged bumetanide (bumetanide 0.5 mg Tab) 1 Tablets By Mouth Every [...] physician if questions or concerns Unchanged cyanocobalamin (Vitamin B12 1000 mcg Tab) By Mouth Every day Contact prescribing physician if questions or concerns Unchanged hydrALAZINE (hydrALAZINE 50 mg Tab) 2 Tablets By Mouth 3 times a day Contact prescribing physician if questions or concerns Unchanged insulin glargine (Lantus) Subcutaneous Every day Contact prescribing physician if questions or concerns Unchanged isosorbide mononitrate By Mouth Contact prescribing physician if questions or concerns Unchanged levofloxacin (levofloxacin 750 mg Tab) 7 EA, 0 Refill(s), TAKE 1 TABLET BY MOUTH DAILY FOR 7 DAYS Contact prescribing physician if questions or concerns Unchanged multivitamin (Multi Vitamins oral tablet) 1 Tablets By Mouth Every day Contact prescribing physician if questions or concerns Unchanged omeprazole (omeprazole 20 mg Cap-DR) 1 Capsules By Mouth Every day Contact prescribing physician if questions or concerns Unchanged potassium chloride 10 Milliequivalent By Mouth Contact prescribing physician if questions or concerns Unchanged semaglutide (Ozempic (1 mg dose)) 1 Milligram Subcutaneous Every week Contact prescribing physician if questions or concerns Unchanged simvastatin (simvastatin 20 mg Tab) 0.5 Tablets By Mouth Once a day (at bedtime) Contact (more content not included)... Normal [facility] Urine Cultureon 05-18-2024 Bacteria identified Cx Nom (U) No Growth 2 Days PERFORMED BY: [facility] [address] [place] [address] PATHOLOGIST MANAGER POOL DEMOND ESCOBAR M.D. Normal [facility] Comment on above: Performed By: #### C UU ####[facility] [id number] [place] [address] [facility] Urine cultureOrdered By: Carissa bettye Marker on 05-18-2024 Bacteria identified Cx Nom (U) Urine culture [facility] Urology Office/Clinic Noteon 05-18-2024 Urology Office/Clinic Note Urology Office/Clinic Note Chief Complaint Cysto HPI Staff Cysto, pt has cath History of Present Illness I have reviewed the previous health record [...] See HPI. Physical Exam Vitals & Measurements HR: 98(Peripheral) RR: 18 BP: 148/78 HT: 70 in HT: 177 cm WT: 95.6 kg WT: 210.762 lb BMI: 30.51 General Appearance: alert, no distress, well nourished, well developed male. Procedure Operative Information Anesthesia Type: Local Procedure: Local Cystoscopy Complications: None Surgical risks, benefits, details of the procedure have been explained to the patient. Full informed consent has been obtained. Intraoperative Information Prepped: Patient is brought back to the endoscopy suite. Patient is placed in supine position. Patient prepped in the usual fashion with Betadine solution. 2% Xylocaine Jelly is placed per Urethra. After waiting several minutes, the Cystoscope is introduced. The Urethra is: Normal The Prostatic Urethra is: _Moderate to severe obstruction. No significant Rezum defects noted The Bladder: _Cloudy urine, thicker, difficult to visualize bladder. Unable to visualize. Prior 1 + Trabeculations The Ureteral orifices: Show efflux of cloudy urine Specimens Removed: Bladder wash sent for urine culture Removal: Cystoscope is removed. The patient tolerated it well. Postoperative Information Patient is discharged home. Follow up arranged. Assessment/Plan 78 yo male presents for cysto d/t UR and BPH. Pt resides at [place], send meds to them. 1. Urinary retention (R33.9: Retention of urine, unspecified) - Admitted at [facility] x 4 days due to PNA, Gomez removed and discharged 04/08/24. Pt states he presented back to [facility] ER due to UR. Gomez placed, PVR 510 mL. PVR at prior OV was 124ml. - Fill and pull 04/25/24. PVR 04/25/24 78 mL. Fill and pull 04/25/24. Pt called our office today due to UR, only dribbling. PVR today 531 mL. 16Fr coude gomez placed with 10 cc in balloon. Pt had IO cysto today wo complications. Pt still recovering from double PNA and residing at [place]. Will maintain gomez until pt is discharged and ready to proceed with urolift. -Cont cath changes q4wk until pt ready to proceed with urolift 2. BPH with urinary obstruction (N40.1: Benign prostatic hyperplasia with lower urinary tract symptoms) S/p Rezum by Dr. Vargas 09/16/16. Lasted over 5 yrs per pt. Cystoscopy, TRUS 01/27/2024 - Moderate to severe bilobar hypertrophy and elevated bladder neck, calculated prostate volume of 57.7 mL (on CT scan, ~ 80 g). S/p Rezum by [facility] 02/14/24 - 9 treatments, R side did not have full cycles due to machine malfunction, therefore repeated. Cysto today-Rezum did not appear to work, still obstructed Started Finasteride 5 mg qd at prior OV. Taking Terazosin 10 mg qhs (felt this worked better than tamsulosin [1]). Discussed urolift, R/Bs. Declined voiding trial today given persistent obstruction on scope -Pt to call to schedule Urolift once ready. The procedural risks, benefits, details, and treatment alternatives have been discussed with the patient. These include bleeding, infection, continued problems urinating, increased frequency with urgency during the healing process, painful urination, need for indwelling catheter after the procedure, and the need for additional procedures in the future, among others. The risk of penile erection problems and urinary leakage is less after this procedure than some others, but could still occur. Full informed consent has been obtained. Will order Local anesthesia. 3. Cloudy urine (R82.90: Unspecified abnormal findings in urine) See procedure section. Started yesterday -Urine sent for ucx, call if positive to treat x 1 week 4. Anticoagulated (Z79.01: [facility] (current) use of anticoagulants) Eliquis. Elevated risk of periop complications. Will need held periop, has done in the past for Rezum Follow-up With When Contact Information Josep SANDHU, Mica Johns, URL, URO Additional Instructions: Pt to call to schedule Urolift once ready Cont cath changes q4wk with nurse or ANILA Patient Education Prostatic Urethral Lift I, Maria Luz Mejia, personally scribed for Dr. Car on 05/18/2024 11:41:16. . Documentation recorded by the scribyanet S (more content not included)... Normal [facility] Comment on above: Result Comment: Elec tronically Signed By: Mica Car MD\.br\Date and Time Signed: 05/18/24 11:49 EST\.br\Electronically Co-Signed By: Maria Luz Mejia\.br\Date and Time Co-Signed: 05/18/24 11:41 EST Basic Metabolic Panelon 04-23 Anion gap [Moles/Vol] 9.6 mmol/L Normal 6.0-15.0 [facility] Comment on above: Performed By: #### C BC, BMP ####[facility] [id number] [place] [id number] [facility] Calcium [Mass/Vol] 8.5 mg/dL Low 8.6-10.3 [facility] Comment on above: Performed By: #### C BC, BMP ####[facility] [id number] [place] [address] [facility] Chloride [Moles/Vol] 103 mmol/L Normal 98-107 [facility] Comment on above: Performed By: #### C BC, BMP ####[place] [id number] [place] [id number] [facility] CO2 [Moles/Vol] 33.9 mmol/L High 21.0-31.0 [facility] Comment on above: Performed By: #### C BC, BMP ####[place] [id number] [place] [id number] [facility] Creatinine [Mass/Vol] 1.51 mg/dL High 0.70-1.30 [facility] Comment on above: Performed By: #### C BC, BMP ####[place] [address] [place] [id number] [place] Creatinine Clr Calc Pharmacy 41.63 Normal [facility] Comment on above: Result Comment: PERF ORMED BY: [facility] [address] [place] [address] PATHOLOGIST MANAGER POOL DEMOND ESCOBAR M.D. Performed By: #### C BC, BMP ####[place] [id number] [facility] Estimated GFR 46.982 mL/Min Normal [facility] Comment on above: Performed By: #### C BC, BMP ####[place] [id number] [place] [id number] [facility] Glucose [Mass/Vol] 139 mg/dL High 70-100 [facility] Comment on above: Result Comment: [place] Glucose Reference Range is dependent on time and content of last meal. Glucose of more than 200 mg/dL in a nonstressed, ambulatory subject supports the diagnosis of Diabetes Mellitus. ADA recommended reference range Performed By: #### C BC, BMP ####[place] [id number] [facility] Potassium [Moles/Vol] 3.5 mmol/L Normal 3.5-5.1 [facility] Comment on above: Performed By: #### C BC, BMP ####[place] [address] [place] [id number] [facility] Sodium [Moles/Vol] 143 mmol/L Normal 136-145 [facility] Comment on above: Performed By: #### C ELIJAH, BMP ####[place] [id number] [address] Urea nitrogen [Mass/Vol] 62 mg/dL High 7-25 [facility] Comment on above: Performed By: #### C ELIJAH, BMP ####[place] [id number] [address] Basophils Auto (Bld) [#/Vol] Ordered By: Alexa Corona on 05-13-2024 Basophils (Bld) [#/Vol] Automated basophil count 0.0-0.2 [facility] Basophils/100 WBC Auto (Bld) Ordered By: Alexa Corona on 05-13-2024 Basophils/100 WBC (Bld) Automated basophil % . [facility] Calcium [Mass/volume] in Ser um or PlasmaOrdered By: Alexa Corona on 05-13-2024 Calcium [Mass/Vol] Calcium [Mass/volume ] in Serum or Plasma Low 8.6-10.3 [facility] Carbon dioxide, total [Moles /volume] in Serum or PlasmaOrdered By: Alexa Corona on 05-13-2024 CO2 [Moles/Vol] Carbon dioxide, tota l [Moles/volume] in Serum or Plasma High 21.0-31.0 [facility] Chloride [Moles/volume] in S chelo or PlasmaOrdered By: Alexa Corona on 05-13-2024 Chloride [Moles/Vol] Chloride [Moles/volume] in Serum or Plasma 98-107 [facility] Complete Blood Count Auto Di ffon 05-13-2024 Basophils (Bld) [#/Vol] 0.0 10*3/uL Normal 0.0-0.2 [facility] Comment on above: Result Comment: PERF ORMED BY: [facility] [address] [place] [id number] PATHOLOGIST MANAGER POOL DEMOND ESCOBAR M.D. Performed By: #### C ELIJAH, BMP ####[place] [id number] [address] Basophils/100 WBC (Bld) 0.3 % Normal . [facility] Comment on above: Performed By: #### C BC, BMP ####[address] Eosinophils (Bld) [#/Vol] 0.3 10*3/uL Normal 0.0-0.45 [facility] Comment on above: Performed By: #### C BC, BMP ####[address] Eosinophils/100 WBC (Bld) 5.3 % Normal . [facility] Comment on above: Performed By: #### C BC, BMP ####[address] Erythrocyte distribution width (RBC) [Ratio] 16.3 % High 12.0-14.8 [facility] Comment on above: Performed By: #### C BC, BMP ####[address] Hematocrit (Bld) [Volume fraction] 26.2 % Low 38.8-50.0 [facility] Comment on above: Performed By: #### C BC, BMP ####[address] Hemoglobin (Bld) [Mass/Vol] 9.1 g/dL Low 13.0-17.0 [facility] Comment on above: Performed By: #### C BC, BMP ####[address] Lymphocytes (Bld) [#/Vol] 1.1 10*3/uL Normal 1.00-4.8 [facility] Comment on above: Performed By: #### C BC, BMP ####[address] Lymphocytes/100 WBC (Bld) 17.8 % Normal . [facility] Comment on above: Performed By: #### C BC, BMP ####[address] MCH (RBC) [Entitic mass] 32.8 pg Normal 27.5-35.2 [facility] Comment on above: Performed By: #### C BC, BMP ####[address] MCV (RBC) [Entitic vol] 95.0 fL Normal 83.5-101 [facility] Comment on above: Performed By: #### C BC, BMP ####[address] Mean Corpuscular HGB Conc 34.6 g/dL Normal 32.5-35.6 [facility] Comment on above: Performed By: #### C BC, BMP ####[address] Monocytes (Bld) [#/Vol] 0.5 10*3/uL Normal 0.0-0.8 [facility] Comment on above: Performed By: #### C BC, BMP ####[address] Monocytes/100 WBC (Bld) 7.9 % Normal . [facility] Comment on above: Performed By: #### C ELIJAH, BMP ####[address] Neutrophils (Bld) [#/Vol] 4.3 10*3/uL Normal 1.8-7.7 [facility] Comment on above: Performed By: #### C BC, BMP ####[address] Neutrophils/100 WBC (Bld) 68.7 % Normal . [facility] Comment on above: Performed By: #### C BC, BMP ####[address] NRBC% 0.0 /100{WBC} Normal 0-0.5 [facility] Comment on above: Performed By: #### C BC, BMP ####[address] Platelet mean volume (Bld) [Entitic vol] 6.9 fL Normal 6.6-10.1 [facility] Comment on above: Performed By: #### C BC, BMP ####[address] Platelets (Bld) [#/Vol] 115 10*3/uL Low 150-450 [facility] Comment on above: Performed By: #### C BC, BMP ####[address] RBC (Bld) [#/Vol] 2.76 10*6/uL Low 3.90-5.60 [facility] Comment on above: Performed By: #### C BC, BMP ####[address] WBC (Bld) [#/Vol] 6.3 10*3/uL Normal 4.1-10.5 [facility] Comment on above: Performed By: #### C ELIJAH, BMP ####[address] Creatinine [Mass/volume] in Serum or PlasmaOrdered By: Alexa Corona on 05-13-2024 Creatinine [Mass/Vol] Creatinine [Mass/volume] in Serum or Plasma High 0.70-1.30 [facility] Eosinophils Auto (Bld) [#/Vo l]Ordered By: Alexa Corona on 05-13-2024 Eosinophils (Bld) [#/Vol] Automated eosinophil count 0.0-0.45 [facility] Eosinophils/100 WBC Auto (Bl d)Ordered By: Alexa Corona on 05-13-2024 Eosinophils/100 WBC (Bld) Automated eosinophil % . [facility] Erythrocyte distribution wid th Auto (RBC) [Ratio]Ordered By: Alexa Corona on 05-13-2024 Erythrocyte distribution width (RBC) [Ratio] Erythrocyte distribution width [Ratio] by Automated count High 12.0-14.8 [facility] Glucose Glucometer (BldC) [M ass/Vol]Ordered By: Alexa Corona on 05-13-2024 Glucose [Mass/Vol] Capillary blood glucose measurement by glucometer (mass/volume) [facility] Comment on above: Random Glucose Refer ence Range is dependent on time and content of last meal. Glucose of more than 200 mg/dL in a nonstressed, ambulatory subject supports the diagnosis of Diabetes Mellitus. Glucose Poct Glucometerson 0 05-13-2024 Glucose [Mass/Vol] 379 mg/dL Normal [facility] Comment on above: Result Comment: Victor om Glucose Reference Range is dependent on time and content of last meal. Glucose of more than 200 mg/dL in a nonstressed, ambulatory subject supports the diagnosis of Diabetes Mellitus. PERFORMED BY: [facility] [address] [place] [address] PATHOLOGIST MANAGER POOL DEMOND ESCOBAR M.D. Performed By: #### G LULS ####Point of Care testing, Glucose [Mass/volume] in Ser um or PlasmaOrdered By: Alexa Corona on 05-13-2024 Glucose [Mass/Vol] Glucose [Mass/volume ] in Serum or Plasma High 70-100 [facility] Comment on above: ADA recommended refe rence rangeRandom Glucose Reference Range is dependent on time and content of last meal. Glucose of more than 200 mg/dL in a nonstressed, ambulatory subject supports the diagnosis of Diabetes Mellitus. Hematocrit Auto (Bld) [Volum e fraction]Ordered By: Alexa Corona on 05-13-2024 Hematocrit (Bld) [Volume fraction] Hematocrit [Volume Fraction] of Blood by Automated count Low 38.8-50.0 [facility] Hemoglobin [Mass/volume] in BloodOrdered By: Alexa Corona on 05-13-2024 Hemoglobin (Bld) [Mass/Vol] Hemoglobin [Mass/volume] in Blood Low 13.0-17.0 [facility] Leukocytes [#/volume] correc gabrielle for nucleated erythrocytes in Blood by Automated counOrdered By: Alexa Corona on 05-13-2024 WBC corrected for nucl RBC Auto (Bld) [#/Vol] Leukocytes [#/volume] corrected for nucleated erythrocytes in Blood by Automated coun 4.1-10.5 [facility] Lymphocytes Auto (Bld) [#/Vo l]Ordered By: Alexa Corona on 05-13-2024 Lymphocytes (Bld) [#/Vol] Lymphocytes [#/volume] in Blood by Automated count 1.00-4.8 [facility] Lymphocytes/100 WBC Auto (Bl d)Ordered By: Alexa Corona on 05-13-2024 Lymphocytes/100 WBC (Bld) Lymphocytes/100 leukocytes in Blood by Automated count . [facility] MCH Auto (RBC) [Entitic mass ]Ordered By: Alexa Corona on 05-13-2024 MCH (RBC) [Entitic mass] MCH [Entitic mass] by Automated count 27.5-35.2 [facility] MCHC Auto (RBC) [Mass/Vol]Or dered By: Alexa Corona on 05-13-2024 MCHC (RBC) [Mass/Vol] MCHC [Mass/volume] by Automated count 32.5-35.6 [facility] MCV Auto (RBC) [Entitic vol] Ordered By: Alexa Corona on 05-13-2024 MCV (RBC) [Entitic vol] MCV [Entitic volume] by Automated count 83.5-101 [facility] Monocytes Auto (Bld) [#/Vol] Ordered By: Alexa Corona on 05-13-2024 Monocytes (Bld) [#/Vol] Automated blood monocyte count 0.0-0.8 [facility] Monocytes/100 WBC Auto (Bld) Ordered By: Alexa Corona on 05-13-2024 Monocytes/100 WBC (Bld) Automated monocyte % . [facility] Neutrophils Auto (Bld) [#/Vo l]Ordered By: Alexa Corona on 05-13-2024 Neutrophils (Bld) [#/Vol] Neutrophils [#/volume] in Blood by Automated count 1.8-7.7 [facility] Neutrophils/100 WBC Auto (Bl d)Ordered By: Alexa Corona on 05-13-2024 Neutrophils/100 WBC (Bld) Automated neutrophil % . [facility] No Panel InformationOrdered By: Alexa Corona on 05-13-2024 Estimated GFR (CKD-EPI) 46.982 mL/Min [facility] Creatinine Clearance (Chem 41.63 [facility] Nucleated erythrocytes [Pres ence] in Blood by Automated countOrdered By: Alexa Corona on 05-13-2024 Nucleated RBC Auto Ql (Bld) Nucleated erythrocytes [Presence] in Blood by Automated count 0-0.5 [facility] Platelet mean volume Auto (B ld) [Entitic vol]Ordered By: Alexa Corona on 05-13-2024 Platelet mean volume (Bld) [Entitic vol] Platelet mean volume [Entitic volume] in Blood by Automated count 6.6-10.1 [facility] Platelets Auto (Bld) [#/Vol] Ordered By: Alexa Corona on 05-13-2024 Platelets (Bld) [#/Vol] Platelets [#/volume] in Blood by Automated count Low 150-450 [facility] Potassium [Moles/volume] in Serum or PlasmaOrdered By: Alexa Corona on 05-13-2024 Potassium [Moles/Vol] Potassium [Moles/volume] in Serum or Plasma 3.5-5.1 [facility] RBC Auto (Bld) [#/Vol]Ordere d By: Alexa Corona on 05-13-2024 RBC (Bld) [#/Vol] Erythrocytes [#/volume] in Blood by Automated count Low 3.90-5.60 [facility] Serum or plasma anion gap de terminationOrdered By: Alexa Corona on 05-13-2024 Anion gap [Moles/Vol] Serum or plasma an ion gap determination 6.0-15.0 [facility] Sodium [Moles/volume] in Ser um or PlasmaOrdered By: Alexa Corona on 05-13-2024 Sodium [Moles/Vol] Sodium [Moles/volume ] in Serum or Plasma 136-145 [facility] Urea nitrogen [Mass/volume] in Serum or PlasmaOrdered By: Alexa Corona on 05-13-2024 Urea nitrogen [Mass/Vol] Urea nitrogen [Mass/volume] in Serum or Plasma High 7-25 [facility] WBC Auto (Bld) [#/Vol]Ordere d By: Alexa Corona on 05-13-2024 WBC (Bld) [#/Vol] Leukocytes [#/volume ] in Blood by Automated count 4.1-10.5 [facility] Basic Metabolic Panelon 04-23 Anion gap [Moles/Vol] 9.2 mmol/L Normal 6.0-15.0 [facility] Comment on above: Performed By: #### B MP, CBC ####[place] [id number] [facility] Calcium [Mass/Vol] 8.6 mg/dL Normal 8.6-10.3 [facility] Comment on above: Performed By: #### B MP, CBC ####[place] [id number] [facility] Chloride [Moles/Vol] 103 mmol/L Normal 98-107 [facility] Comment on above: Performed By: #### B MP, CBC ####[place] [id number] [facility] CO2 [Moles/Vol] 34.1 mmol/L High 21.0-31.0 [facility] Comment on above: Performed By: #### B MP, CBC ####[place] [id number] [facility] Creatinine [Mass/Vol] 1.85 mg/dL High 0.70-1.30 [facility] Comment on above: Performed By: #### B MP, CBC ####[place] [id number] [facility] Creatinine Clr Calc Pharmacy 33.98 Normal [facility] Comment on above: Result Comment: PERF ORMED BY: [facility] [address] [facility] [place] [id number] PATHOLOGIST MANAGER POOL DEMOND ESCOBAR M.D. Performed By: #### B MP, CBC ####[address] [address] [facility] Estimated GFR 36.821 mL/Min Normal [facility] Comment on above: Performed By: #### B MP, CBC ####[address] Glucose [Mass/Vol] 48 mg/dL Off scale low 70-100 [facility] Comment on above: Result Comment: Crit ical Result Called to and read back by: SAM TIPTON at: 05/12/2024 06:23:44 by: Random Glucose Reference Range is dependent on time and content of last meal. Glucose of more than 200 mg/dL in a nonstressed, ambulatory subject supports the diagnosis of Diabetes Mellitus. ADA recommended reference range Performed By: #### B MP, CBC ####[address] Potassium [Moles/Vol] 3.3 mmol/L Low 3.5-5.1 [facility] Comment on above: Performed By: #### B MP, CBC ####[address] Sodium [Moles/Vol] 143 mmol/L Normal 136-145 [facility] Comment on above: Performed By: #### B MP, CBC ####[place] [id number] [facility] Urea nitrogen [Mass/Vol] 75 mg/dL High 7-25 [facility] Comment on above: Performed By: #### B MP, CBC ####[place] [id number] [facility] Complete Blood Count Auto Di ffon 05-12-2024 Basophils (Bld) [#/Vol] 0.0 10*3/uL Normal 0.0-0.2 [facility] Comment on above: Result Comment: PERF ORMED BY: [facility] [address] [place] [address] PATHOLOGIST MANAGER POOL DEMOND ESCOBAR M.D. Performed By: #### B MP, CBC ####[place] [id number] [facility] Basophils/100 WBC (Bld) 0.6 % Normal . [facility] Comment on above: Performed By: #### B MP, CBC ####[address] [place] [address] [place] Eosinophils (Bld) [#/Vol] 0.3 10*3/uL Normal 0.0-0.45 [facility] Comment on above: Performed By: #### B MP, CBC ####[address] Eosinophils/100 WBC (Bld) 4.5 % Normal . [facility] Comment on above: Performed By: #### B MP, CBC ####[address] Erythrocyte distribution width (RBC) [Ratio] 16.7 % High 12.0-14.8 [facility] Comment on above: Performed By: #### B MP, CBC ####[address] Hematocrit (Bld) [Volume fraction] 26.9 % Low 38.8-50.0 [facility] Comment on above: Performed By: #### B MP, CBC ####[address] Hemoglobin (Bld) [Mass/Vol] 9.1 g/dL Low 13.0-17.0 [facility] Comment on above: Performed By: #### B MP, CBC ####[address] Lymphocytes (Bld) [#/Vol] 1.0 10*3/uL Normal 1.00-4.8 [facility] Comment on above: Performed By: #### B MP, CBC ####[address] Lymphocytes/100 WBC (Bld) 16.4 % Normal . [facility] Comment on above: Performed By: #### B MP, CBC ####[address] MCH (RBC) [Entitic mass] 31.8 pg Normal 27.5-35.2 [facility] Comment on above: Performed By: #### B MP, CBC ####[address] MCV (RBC) [Entitic vol] 93.9 fL Normal 83.5-101 [facility] Comment on above: Performed By: #### B MP, CBC ####[address] Mean Corpuscular HGB Conc 33.8 g/dL Normal 32.5-35.6 [facility] Comment on above: Performed By: #### B MP, CBC ####[address] Monocytes (Bld) [#/Vol] 0.4 10*3/uL Normal 0.0-0.8 [facility] Comment on above: Performed By: #### B MP, CBC ####[address] Monocytes/100 WBC (Bld) 6.8 % Normal . [facility] Comment on above: Performed By: #### B MP, CBC ####[address] Neutrophils (Bld) [#/Vol] 4.3 10*3/uL Normal 1.8-7.7 [facility] Comment on above: Performed By: #### B MP, CBC ####[address] Neutrophils/100 WBC (Bld) 71.7 % Normal . [facility] Comment on above: Performed By: #### B MP, CBC ####[address] NRBC% 0.1 /100{WBC} Normal 0-0.5 [facility] Comment on above: Performed By: #### B MP, CBC ####[address] Platelet mean volume (Bld) [Entitic vol] 6.8 fL Normal 6.6-10.1 [facility] Comment on above: Performed By: #### B MP, CBC ####[address] [place] [address] [facility] Platelets (Bld) [#/Vol] 115 10*3/uL Low 150-450 [facility] Comment on above: Performed By: #### B MP, CBC ####[address] RBC (Bld) [#/Vol] 2.87 10*6/uL Low 3.90-5.60 [facility] Comment on above: Performed By: #### B MP, CBC ####[place] [id number] [facility] WBC (Bld) [#/Vol] 6.1 10*3/uL Normal 4.1-10.5 [facility] Comment on above: Performed By: #### B MP, CBC ####[address] Glucose Poct Glucometerson 0 05-12-2024 Glucose [Mass/Vol] 383 mg/dL Normal [facility] Comment on above: Result Comment: [facility] Glucose Reference Range is dependent on time and content of last meal. Glucose of more than 200 mg/dL in a nonstressed, ambulatory subject supports the diagnosis of Diabetes Mellitus. PERFORMED BY: [place] [address] PATHOLOGIST MANAGER POOL DEMOND ESCOBAR M.D. Performed By: #### G LULS ####Point of Care testing, Glucose [Mass/Vol] 287 mg/dL Normal [facility] Comment on above: Result Comment: [facility] Glucose Reference Range is dependent on time and content of last meal. Glucose of more than 200 mg/dL in a nonstressed, ambulatory subject supports the diagnosis of Diabetes Mellitus. PERFORMED BY: [place] [id number] PATHOLOGIST MANAGER POOL DEMOND ESCOBAR M.D. Performed By: #### G LULS ####Point of Care testing, Glucose [Mass/Vol] 214 mg/dL Normal [facility] Comment on above: Result Comment: [facility] Glucose Reference Range is dependent on time and content of last meal. Glucose of more than 200 mg/dL in a nonstressed, ambulatory subject supports the diagnosis of Diabetes Mellitus. PERFORMED BY: [address] [address] PATHOLOGIST MANAGER POOL DEMOND ESCOBAR M.D. Performed By: #### G LULS ####Point of Care testing, Glucose [Mass/Vol] 91 mg/dL Normal [facility] Comment on above: Result Comment: [place] Glucose Reference Range is dependent on time and content of last meal. Glucose of more than 200 mg/dL in a nonstressed, ambulatory subject supports the diagnosis of Diabetes Mellitus. PERFORMED BY: [place] [id number] PATHOLOGIST MANAGER POOL DEMOND ESCOBAR M.D. Performed By: #### G LULS ####Point of Care testing, Glucose [Mass/Vol] 63 mg/dL Normal [facility] Comment on above: Result Comment: [place] Glucose Reference Range is dependent on time and content of last meal. Glucose of more than 200 mg/dL in a nonstressed, ambulatory subject supports the diagnosis of Diabetes Mellitus. PERFORMED BY: [address] [address] PATHOLOGIST MANAGER POOL DEMOND ESCOBAR M.D. Performed By: #### G LULS ####Point of Care testing, Commemt1 Glu2: Cleaned Meter Normal [facility] Comment on above: Result Comment: PERF ORMED BY: [address] [address] PATHOLOGIST MANAGER POOL DEMOND ESCOBAR M.D. Performed By: #### G LULS ####Point of Care testing, Glucose [Mass/Vol] 93 mg/dL Normal [facility] Comment on above: Result Comment: [place] Glucose Reference Range is dependent on time and content of last meal. Glucose of more than 200 mg/dL in a nonstressed, ambulatory subject supports the diagnosis of Diabetes Mellitus. Performed By: #### G LULS ####Point of Care testing, No Panel InformationOrdered By: Alexa Corona on 05-12-2024 Bedside Glucose Comment Glu2: cleaned meter [facility] X-ray reportOrdered By: Simone Chakraborty on 05-12-2024 Study report [facility] Main [place] [id number] XRay Report Signed Patient: Leighton Arciniega MR#: [id number] : 1945 Acct:[id number] Age/Sex: 78 / M ADM Date: 5 Loc: 4P Room: [address] [place] [address] Type: ADM IN Attending Dr: Alexa Corona [...] Benton Chakraborty M.D.05/12/2024 9:06 AM Dictation Location: [place] [address] Transcribed By: [facility] 05/12/[address] Dictated By: Benton Chakraborty DO 05/12/24 09 Signed By: 05/12/24 0906 [facility] XR chest 1V portableon 05-12 XR chest 1V portable [facility] Main [place] [id number] XRay Report Signed Patient: Leighton Arciniega MR#: [id number] : 1945 Acct:[id number] Age/Sex: 78 / M ADM Date: 05/09/24 Loc: 4P Room: [address] [place] [address] Type: ADM IN Attending Dr: Alexa Corona [...] Benton Chakraborty M.D.05/12/2024 9:06 AM Dictation Location: [place] [address] Transcribed By: [facility] 05/12/24 09 Dictated By: Benton Chakraborty DO 05/12/24 0904 Signed By: 05/12/24 09 Normal [facility] Basic Metabolic Panelon 04-23 Anion gap [Moles/Vol] 11.5 mmol/L Normal 6.0-15.0 [facility] Comment on above: Performed By: #### B MP, CBC ####[facility] [place] [id number] [facility] Calcium [Mass/Vol] 9.2 mg/dL Normal 8.6-10.3 [facility] Comment on above: Performed By: #### B MP, CBC ####[facility] [place] [address] [place] Chloride [Moles/Vol] 101 mmol/L Normal 98-107 [facility] Comment on above: Performed By: #### B MP, CBC ####[facility] [place] [address] [facility] CO2 [Moles/Vol] 32.9 mmol/L High 21.0-31.0 [facility] Comment on above: Performed By: #### B MP, CBC ####[place] [address] Creatinine [Mass/Vol] 2.31 mg/dL High 0.70-1.30 [facility] Comment on above: Performed By: #### B MP, CBC ####[address] Creatinine Clr Calc Pharmacy 29.40 Normal [facility] Comment on above: Result Comment: PERF ORMED BY: [facility] [address] [place] [address] PATHOLOGIST MANAGER POOL DEMOND ESCOBAR M.D. Performed By: #### B MP, CBC ####[address] Estimated GFR 28.208 mL/Min Normal [facility] Comment on above: Performed By: #### B MP, CBC ####[address] Glucose [Mass/Vol] 57 mg/dL Low 70-100 [facility] Comment on above: Result Comment: [facility] Glucose Reference Range is dependent on time and content of last meal. Glucose of more than 200 mg/dL in a nonstressed, ambulatory subject supports the diagnosis of Diabetes Mellitus. ADA recommended reference range Performed By: #### B MP, CBC ####[address] Potassium [Moles/Vol] 3.4 mmol/L Low 3.5-5.1 [facility] Comment on above: Performed By: #### B MP, CBC ####[address] Sodium [Moles/Vol] 142 mmol/L Significant change down 136-145 [facility] Comment on above: Performed By: #### B MP, CBC ####[address] Urea nitrogen [Mass/Vol] 87 mg/dL High 7-25 [facility] Comment on above: Performed By: #### B MP, CBC ####[address] Complete Blood Count Auto Di ffon 05-11-2024 Basophils (Bld) [#/Vol] 0.0 10*3/uL Normal 0.0-0.2 [facility] Comment on above: Result Comment: PERF ORMED BY: [facility] [address] [place] [address] PATHOLOGIST MANAGER POOL DEMOND ESCOBAR M.D. Performed By: #### B MP, CBC ####[address] Basophils/100 WBC (Bld) 0.1 % Normal . [facility] Comment on above: Performed By: #### B MP, CBC ####[address] Eosinophils (Bld) [#/Vol] 0.2 10*3/uL Normal 0.0-0.45 [facility] Comment on above: Performed By: #### B MP, CBC ####[address] Eosinophils/100 WBC (Bld) 3.3 % Normal . [facility] Comment on above: Performed By: #### B MP, CBC ####[address] Erythrocyte distribution width (RBC) [Ratio] 16.7 % High 12.0-14.8 [facility] Comment on above: Performed By: #### B MP, CBC ####[address] Hematocrit (Bld) [Volume fraction] 29.6 % Low 38.8-50.0 [facility] Comment on above: Performed By: #### B MP, CBC ####[address] Hemoglobin (Bld) [Mass/Vol] 10.1 g/dL Low 13.0-17.0 [facility] Comment on above: Performed By: #### B MP, CBC ####[address] Lymphocytes (Bld) [#/Vol] 0.8 10*3/uL Low 1.00-4.8 [facility] Comment on above: Performed By: #### B MP, CBC ####[address] Lymphocytes/100 WBC (Bld) 11.7 % Normal . [facility] Comment on above: Performed By: #### B MP, CBC ####[address] MCH (RBC) [Entitic mass] 32.2 pg Normal 27.5-35.2 [facility] Comment on above: Performed By: #### B MP, CBC ####[address] MCV (RBC) [Entitic vol] 94.5 fL Normal 83.5-101 [facility] Comment on above: Performed By: #### B MP, CBC ####[address] Mean Corpuscular HGB Conc 34.1 g/dL Normal 32.5-35.6 [facility] Comment on above: Performed By: #### B MP, CBC ####[address] Monocytes (Bld) [#/Vol] 0.5 10*3/uL Normal 0.0-0.8 [facility] Comment on above: Performed By: #### B MP, CBC ####[address] Monocytes/100 WBC (Bld) 6.8 % Normal . [facility] Comment on above: Performed By: #### B MP, CBC ####[address] Neutrophils (Bld) [#/Vol] 5.2 10*3/uL Normal 1.8-7.7 [facility] Comment on above: Performed By: #### B MP, CBC ####[address] [address] [place] Neutrophils/100 WBC (Bld) 78.1 % Normal . [facility] Comment on above: Performed By: #### B MP, CBC ####[address] NRBC% 0.1 /100{WBC} Normal 0-0.5 [facility] Comment on above: Performed By: #### B MP, CBC ####[address] Platelet mean volume (Bld) [Entitic vol] 6.5 fL Low 6.6-10.1 [facility] Comment on above: Performed By: #### B MP, CBC ####[address] Platelets (Bld) [#/Vol] 129 10*3/uL Low 150-450 [facility] Comment on above: Performed By: #### B MP, CBC ####[address] RBC (Bld) [#/Vol] 3.13 10*6/uL Low 3.90-5.60 [facility] Comment on above: Performed By: #### B MP, CBC ####[address] WBC (Bld) [#/Vol] 6.6 10*3/uL Normal 4.1-10.5 [facility] Comment on above: Performed By: #### B MP, CBC ####[address] ECH echo transthoracicon ECH echo transthoracic [facility] Main [place] [address] [place] [address] Echocardiogram Signed Patient: Leighton Arciniega MR#: [id number] : 1945 Acct:[id number] Age/Sex: 78 / M ADM Date: 05/09/24 Loc: Room: [address] [place] [address] Type: ADM IN Attending Dr: Alexa Corona MD Ordering Provider: Osvaldo Dickinson MD Date of Service: 05/11/24 [facility] echo transthoracic: reassess EF - [facility] wants full echo Copies to: MD Osvaldo Celeste MD Ordering Physician: Osvaldo Dickinson Height: 70 in Weight: 193 lb Performed By: GRACE Peña BSA: 2.1 m2 BP: 136/65 mmHg HR: 85 Reason For Study: reassess EF - [facility] wants full echo morning History: CHF, 2024 EF was 50%, 2024 EF ydt32-43% (both echos done at [facility]), HTN, DM, DVT, SSS, Pacemaker, A-Fib., CKD, COPD, VIRGILIO, DC Interpretation Summary Ejection Fraction = 20-25%. The [...] Performed (more content not included)... Normal [facility] Glucose Poct Glucometerson 0 05-11-2024 Commemt1 Glu2: Cleaned Meter Normal [facility] Comment on above: Result Comment: PERF ORMED BY: [address] [place] [id number] PATHOLOGIST MANAGER POOL DEMOND ESCOBAR M.D. Performed By: #### G LULS ####Point of Care testing, Glucose [Mass/Vol] 218 mg/dL Normal [facility] Comment on above: Result Comment: Victor om Glucose Reference Range is dependent on time and content of last meal. Glucose of more than 200 mg/dL in a nonstressed, ambulatory subject supports the diagnosis of Diabetes Mellitus. Performed By: #### G LULS ####Point of Care testing, Glucose [Mass/Vol] 187 mg/dL Normal [facility] Comment on above: Result Comment: Victor om Glucose Reference Range is dependent on time and content of last meal. Glucose of more than 200 mg/dL in a nonstressed, ambulatory subject supports the diagnosis of Diabetes Mellitus. PERFORMED BY: [place] [address] PATHOLOGIST MANAGER POOL DEMOND ESCOBAR M.D. Performed By: #### G LULS ####Point of Care testing, Glucose [Mass/Vol] 333 mg/dL Normal [facility] Comment on above: Result Comment: Victor om Glucose Reference Range is dependent on time and content of last meal. Glucose of more than 200 mg/dL in a nonstressed, ambulatory subject supports the diagnosis of Diabetes Mellitus. PERFORMED BY: [address] [place] [address] PATHOLOGIST MANAGER POOL DEMOND ESCOBAR M.D. Performed By: #### G LULS ####Point of Care testing, Commemt1 Glu2: Cleaned Meter Normal [facility] Comment on above: Result Comment: PERF ORMED BY: [address] [place] [address] PATHOLOGIST MANAGER POOL DEMOND ESCOBAR M.D. Performed By: #### G LULS ####Point of Care testing, Glucose [Mass/Vol] 168 mg/dL Normal [facility] Comment on above: Result Comment: Victor om Glucose Reference Range is dependent on time and content of last meal. Glucose of more than 200 mg/dL in a nonstressed, ambulatory subject supports the diagnosis of Diabetes Mellitus. Performed By: #### G LULS ####Point of Care testing, Glucose [Mass/Vol] 69 mg/dL Normal [facility] Comment on above: Result Comment: Victor om Glucose Reference Range is dependent on time and content of last meal. Glucose of more than 200 mg/dL in a nonstressed, ambulatory subject supports the diagnosis of Diabetes Mellitus. PERFORMED BY: [address] [place] [address] PATHOLOGIST MANAGER POOL DEMOND ESCOBAR M.D. Performed By: #### G LULS ####Point of Care testing, Commemt1 Glu2: Cleaned Meter Normal [facility] Comment on above: Result Comment: PERF ORMED BY: [facility] [address] [facility] [place] [address] PATHOLOGIST MANAGER POOL DEMOND ESCOBAR M.D. Performed By: #### G LULS #### Point of Care testing , Glucose [Mass/Vol] 80 mg/dL Normal [facility] Comment on above: Result Comment: Victor om Glucose Reference Range is dependent on time and content of last meal. Glucose of more than 200 mg/dL in a nonstressed, ambulatory subject supports the diagnosis of Diabetes Mellitus. Performed By: #### G LULS #### Point of Care testing , Basic Metabolic Panelon 04-22 Anion gap [Moles/Vol] 12.6 mmol/L Normal 6.0-15.0 [facility] Comment on above: Performed By: #### G LULS #### Point of Care testing , Calcium [Mass/Vol] 8.9 mg/dL Normal 8.6-10.3 [facility] Comment on above: Performed By: #### G LULS #### Point of Care testing , Chloride [Moles/Vol] 101 mmol/L Normal 98-107 [facility] Comment on above: Performed By: #### G LULS #### Point of Care testing , CO2 [Moles/Vol] 26.6 mmol/L Normal 21.0-31.0 [facility] Comment on above: Performed By: #### G LULS #### Point of Care testing , Creatinine [Mass/Vol] 2.26 mg/dL High 0.70-1.30 [facility] Comment on above: Performed By: #### G LULS #### Point of Care testing , Creatinine Clr Calc Pharmacy 31.85 Normal [facility] Comment on above: Performed By: #### G LULS #### Point of Care testing , Estimated GFR 28.958 mL/Min Normal [facility] Comment on above: Performed By: #### G LULS #### Point of Care testing , Glucose [Mass/Vol] 131 mg/dL High 70-100 [facility] Comment on above: Result Comment: Victor Glucose Reference Range is dependent on time and content of last meal. Glucose of more than 200 mg/dL in a nonstressed, ambulatory subject supports the diagnosis of Diabetes Mellitus. ADA recommended reference range Performed By: #### G LULS #### Point of Care testing , Potassium [Moles/Vol] 4.2 mmol/L Normal 3.5-5.1 [facility] Comment on above: Performed By: #### G LULS #### Point of Care testing , Sodium [Moles/Vol] 136 mmol/L Normal 136-145 [facility] Comment on above: Performed By: #### G LULS #### Point of Care testing , Urea nitrogen [Mass/Vol] 85 mg/dL High 7-25 [facility] Comment on above: Performed By: #### G LULS #### Point of Care testing , Cholesterol [Mass/volume] in Serum or PlasmaOrdered By: Alexa Corona on 05-10-2024 Cholesterol [Mass/Vol] Cholesterol [Mass/volume] in Serum or Plasma Low 140-200 [facility] Comment on above: Chol less than 200 m g/dl low riskChol 201-239 mg/dl borderline riskChol 240 mg/dl and greater high risk Cholesterol in HDL [Mass/vol ume] in Serum or PlasmaOrdered By: Alexa Corona on 05-10-2024 Cholesterol in HDL [Mass/Vol] Serum or plasma high density lipoprotein (HDL) cholesterol measurement 23-92 [facility] Comment on above: HDL CHOL ATP-III CLA SSIFICATION Cardiovascular RiskHDL > or equal to 60 mg/dL LOWHDL < 40 mg/dL HIGH Cholesterol in LDL Calc [Mas s/Vol]Ordered By: Alexa Corona on 05-10-2024 Cholesterol in LDL [Mass/Vol] Cholesterol in LDL [Mass/volume] in Serum or Plasma by calculation 0-100 [facility] Comment on above: LDL ATP III CLASSIFI CATIONLDL less than 100 mg/dL OptimalLDL 100-129 mg/dL Near or above optimalLDL 130-159 mg/dL Borderline highLDL 160-189 mg/dL HighLDL greater than 189 mg/dL Very high Cholesterol in VLDL Calc [Ma ss/Vol]Ordered By: Alexa Corona on 05-10-2024 Cholesterol in VLDL [Mass/Vol] Cholesterol in VLDL [Mass/volume] in Serum or Plasma by calculation [facility] Clostridioides difficile tox in B tcdB gene [Presence] in Stool by TORI with probe deteOrdered By: Alexa Corona on 05-10-2024 C. difficile toxin B tcdB gene TORI+probe Ql (Stl) Clostridioides difficile toxin B tcdB gene [Presence] in Stool by TORI with probe dete Negative [facility] Comment on above: Testing performed by RT-PCR Clostridium Difficileon 04-22 Clostridium Difficile Negative Normal Negative [facility] Comment on above: Order Comment: > or = to 3 loose/watery stools in the last 24 HRS? Y Is patient on promotility agents or tube feeding? N Result Comment: Test ing performed by RT-PCR PERFORMED BY: [address] [address] PATHOLOGIST MANAGER POOL DEMOND ESCOBAR M.D. Performed By: #### G LULS #### Point of Care testing , Complete Blood Count Auto Di ffon 05-10-2024 Basophils (Bld) [#/Vol] 0.1 10*3/uL Normal 0.0-0.2 [facility] Comment on above: Result Comment: PERF ORMED BY: [facility] [address] PATHOLOGIST MANAGER POOL DEMOND ESCOBAR M.D. Performed By: #### G LULS #### Point of Care testing , Basophils/100 WBC (Bld) 0.7 % Normal . [facility] Comment on above: Performed By: #### G LULS #### Point of Care testing , Eosinophils (Bld) [#/Vol] 0.0 10*3/uL Normal 0.0-0.45 [facility] Comment on above: Performed By: #### G LULS #### Point of Care testing , Eosinophils/100 WBC (Bld) 0.5 % Normal . [facility] Comment on above: Performed By: #### G LULS #### Point of Care testing , Erythrocyte distribution width (RBC) [Ratio] 16.3 % High 12.0-14.8 [facility] Comment on above: Performed By: #### G LULS #### Point of Care testing , Hematocrit (Bld) [Volume fraction] 27.5 % Low 38.8-50.0 [facility] Comment on above: Performed By: #### G LULS #### Point of Care testing , Hemoglobin (Bld) [Mass/Vol] 9.4 g/dL Low 13.0-17.0 [facility] Comment on above: Performed By: #### G LULS #### Point of Care testing , Lymphocytes (Bld) [#/Vol] 0.6 10*3/uL Low 1.00-4.8 [facility] Comment on above: Performed By: #### G LULS #### Point of Care testing , Lymphocytes/100 WBC (Bld) 6.2 % Normal . [facility] Comment on above: Performed By: #### G LULS #### Point of Care testing , MCH (RBC) [Entitic mass] 32.5 pg Normal 27.5-35.2 [facility] Comment on above: Performed By: #### G LULS #### Point of Care testing , MCV (RBC) [Entitic vol] 94.9 fL Normal 83.5-101 [facility] Comment on above: Performed By: #### G LULS #### Point of Care testing , Mean Corpuscular HGB Conc 34.2 g/dL Normal 32.5-35.6 [facility] Comment on above: Performed By: #### G LULS #### Point of Care testing , Monocytes (Bld) [#/Vol] 0.3 10*3/uL Normal 0.0-0.8 [facility] Comment on above: Performed By: #### G LULS #### Point of Care testing , Monocytes/100 WBC (Bld) 3.3 % Normal . [facility] Comment on above: Performed By: #### G LULS #### Point of Care testing , Neutrophils (Bld) [#/Vol] 8.5 10*3/uL High 1.8-7.7 [facility] Comment on above: Performed By: #### G LULS #### Point of Care testing , Neutrophils/100 WBC (Bld) 89.3 % Normal . [facility] Comment on above: Performed By: #### G LULS #### Point of Care testing , NRBC% 0.0 /100{WBC} Normal 0-0.5 [facility] Comment on above: Performed By: #### G LULS #### Point of Care testing , Platelet mean volume (Bld) [Entitic vol] 6.8 fL Normal 6.6-10.1 [facility] Comment on above: Performed By: #### G LULS #### Point of Care testing , Platelets (Bld) [#/Vol] 124 10*3/uL Low 150-450 [facility] Comment on above: Performed By: #### G LULS #### Point of Care testing , RBC (Bld) [#/Vol] 2.90 10*6/uL Low 3.90-5.60 [facility] Comment on above: Performed By: #### G LULS #### Point of Care testing , WBC (Bld) [#/Vol] 9.5 10*3/uL Normal 4.1-10.5 [facility] Comment on above: Performed By: #### G LULS #### Point of Care testing , ECG 12 lead ECGon 05-10-2024 ECG 12 lead ECG [facility] Main [address] [address] Electrocardiograph Report Signed Patient: Leighton Arciniega MR#: [id number] : 1945 Acct:[id number] Age/Sex: 78 / M ADM Date: 05/09/24 Loc: Room: [address] [place] [address] Type: ADM IN Attending Dr: Alexa Corona [...] ms Ventricular-paced rhythm Confirmed by John Nettles ([id number]) on 05/10/2024 3:54:15 PM Referred By: Electronically Signed By: John Nettles Transcribed By: MUS Signed By John Nettles MD 05/10/24 1554 Normal [facility] Glucose Poct Glucometerson 0 05-10-2024 Glucose [Mass/Vol] 150 mg/dL Normal [facility] Comment on above: Result Comment: [facility] Glucose Reference Range is dependent on time and content of last meal. Glucose of more than 200 mg/dL in a nonstressed, ambulatory subject supports the diagnosis of Diabetes Mellitus. PERFORMED BY: [place] [address] PATHOLOGIST MANAGER POOL DEMOND ESCOBAR M.D. Performed By: #### G LULS ####Point of Care testing, Glucose [Mass/Vol] 106 mg/dL Normal [facility] Comment on above: Result Comment: [facility] Glucose Reference Range is dependent on time and content of last meal. Glucose of more than 200 mg/dL in a nonstressed, ambulatory subject supports the diagnosis of Diabetes Mellitus. PERFORMED BY: [facility] [address] [facility] [place] [address] PATHOLOGIST MANAGER POOL DEMOND ESCOBAR M.D. Performed By: #### G LULS #### Point of Care testing , Glucose [Mass/Vol] 187 mg/dL Normal [facility] Comment on above: Result Comment: [facility] Glucose Reference Range is dependent on time and content of last meal. Glucose of more than 200 mg/dL in a nonstressed, ambulatory subject supports the diagnosis of Diabetes Mellitus. PERFORMED BY: [address] [place] [address] PATHOLOGIST MANAGER POOL DEMOND ESCOBAR M.D. Performed By: #### G LULS ####Point of Care testing, Glucose [Mass/Vol] 153 mg/dL Normal [facility] Comment on above: Result Comment: [facility] Glucose Reference Range is dependent on time and content of last meal. Glucose of more than 200 mg/dL in a nonstressed, ambulatory subject supports the diagnosis of Diabetes Mellitus. PERFORMED BY: [facility] [address] [facility] [place] [address] PATHOLOGIST MANAGER POOL DEMOND ESCOBAR M.D. Performed By: #### G LULS ####Point of Care testing, Lipid Panelon 05-10-2024 Cholesterol [Mass/Vol] 139 mg/dL Low 140-[address] [facility] Comment on above: Result Comment: Chol less than 200 mg/dl low risk Chol 201-239 mg/dl borderline risk Chol 240 mg/dl and greater high risk Performed By: #### G LULS #### Point of Care testing , Cholesterol in HDL [Mass/Vol] 65 mg/dL Normal 23-92 [facility] Comment on above: Result Comment: HDL CHOL ATP-III CLASSIFICATION Cardiovascular Risk HDL > or equal to 60 mg/dL LOW HDL < 40 mg/dL HIGH Performed By: #### G LULS #### Point of Care testing , Cholesterol.total/Chol esterol in HDL [Mass ratio] 2.1 {ratio} Normal <5.0 [facility] Comment on above: Result Comment: PERF ORMED BY: [facility] [place] [address] PATHOLOGIST MANAGER POOL DEMOND ESCOBAR M.D. Performed By: #### G LULS #### Point of Care testing , LDL Cholesterol,Calculated 63 mg/dL Normal 0-100 [facility] Comment on above: Result Comment: LDL ATP III CLASSIFICATION LDL less than 100 mg/dL Optimal LDL 100-129 mg/dL Near or above optimal LDL 130-159 mg/dL Borderline high LDL 160-189 mg/dL High LDL greater than 189 mg/dL Very high Performed By: #### G LULS #### Point of Care testing , Triglyceride w/Reflex 57 mg/dL Normal 0-149 [facility] Comment on above: Result Comment: TRIG ATP III CLASSIFICATION TRIG less than 150 mg/dL Normal TRIG 150-199 mg/dL Borderline high TRIG 200-500 mg/dL High TRIG greater than 500 mg/dL Very high Standard traceable to the Center for Disease Conrtrol and Prevention (CDC) test method. Performed By: #### G LULS #### Point of Care testing , VLDL CHOLESTEROL 11 mg/dL Normal [facility] Comment on above: Performed By: #### G LULS #### Point of Care testing , Serum or plasma total choles terol/high density lipoprotein (HDL) cholesterol mass ratOrdered By: Alexa Corona on 05-10-2024 Cholesterol.total/Chol esterol in HDL [Mass ratio] Serum or plasma total cholesterol/high density lipoprotein (HDL) cholesterol mass rat <5.0 [facility] Triglyceride [Mass/volume] i n Serum or PlasmaOrdered By: Alexa Corona on 05-10-2024 Triglyceride [Mass/Vol] Triglyceride [Mass/volume] in Serum or Plasma 0-149 [facility] Comment on above: TRIG ATP III CLASSIF ICATIONTRIG less than 150 mg/dL NormalTRIG 150-199 mg/dL Borderline highTRIG 200-500 mg/dL High TRIG greater than 500 mg/dL Very highStandard traceable to the Center for Disease Conrtrol and Prevention (CDC) test method. Troponin I High Sensitivityo n 05-10-2024 Troponin I High Sensitivity 47 High 0-20 [facility] Comment on above: Result Comment: The Troponin units of report have been changed to meet the Chest Pain Accreditation requirement, element EC5.M1l2. Troponin units are changed from pg/ml to ng/L. Also, the decimal is removed and results are in whole numbers. PERFORMED BY: [place] [id number] PATHOLOGIST MANAGER POOL DEMOND ESCOBAR M.D. Performed By: #### G LULS #### Point of Care testing , Troponin I High Sensitivity 46 High 0-20 [facility] Comment on above: Result Comment: The Troponin units of report have been changed to meet the Chest Pain Accreditation requirement, element EC5.M1l2. Troponin units are changed from pg/ml to ng/L. Also, the decimal is removed and results are in whole numbers. PERFORMED BY: [address] [address] PATHOLOGIST MANAGER POOL DEMOND ESCOBAR M.D. Performed By: #### H S TROP ####[facility] [id number] [place] [address] [facility] Troponin I.cardiac [Mass/vol ume] in Serum or Plasma by Detection limit <= 0.01 ng/Ordered By: Alexa Corona on 05-10-2024 Troponin I.cardiac DL <= 0.01 ng/mL [Mass/Vol] Troponin I.cardiac [Mass/volume] in Serum or Plasma by Detection limit <= 0.01 ng/ High 0-20 [facility] Comment on above: The Troponin units o f report have been changed to meet the Chest Pain Accreditation requirement, element EC5.M1l2. Troponin units are changed from pg/ml to ng/L. Also, the decimal is removed and results are in whole numbers. B-Type Natriuretic Peptideon 05-09-2024 Natriuretic peptide B (Bld) [Mass/Vol] 1940.0 pg/mL High 5-100 [facility] Comment on above: Order Comment: Comme nt add Result Comment: PERF ORMED BY: [address] [place] [address] PATHOLOGIST MANAGER POOL DEMOND ESCOBAR M.D. Performed By: #### B METER TESTER PRIMARY ####[facility] [address] [place] [address] [facility] ECG 12 lead ECGon 05-09-2024 ECG 12 lead ECG [facility] Main [address] [address] Electrocardiograph Report Signed Patient: Leighton Arciniega MR#: [id number] : 1945 Acct:[id number] Age/Sex: 78 / M ADM Date: 05/09/24 Loc: Room: [address] [place] [address] Type: ADM IN Attending Dr: Alexa Corona [...] ms Ventricular-paced rhythm Confirmed by John Nettles ([id number]) on 05/10/2024 3:51:11 PM Referred By: Electronically Signed By: John Nettles Transcribed By: MUS Signed By John Nettles MD 05/10/24 1551 Normal [facility] Glucose Poct Glucometerson 0 05-09-2024 Glucose [Mass/Vol] 108 mg/dL Normal [facility] Comment on above: Result Comment: [facility] Glucose Reference Range is dependent on time and content of last meal. Glucose of more than 200 mg/dL in a nonstressed, ambulatory subject supports the diagnosis of Diabetes Mellitus. PERFORMED BY: [place] [id number] PATHOLOGIST MANAGER POOL DEMOND ESCOBAR M.D. Performed By: #### G LULS ####Point of Care testing, Magnesiumon 05-09-2024 Magnesium [Mass/Vol] 2.1 mg/dL Normal 1.9-2.7 [facility] Comment on above: Order Comment: Comme nt add Result Comment: PERF ORMED BY: [place] [address] PATHOLOGIST MANAGER POOL DEMOND ESCOBAR M.D. Performed By: #### G LUARACELIS #### Point of Care testing , Magnesium [Mass/volume] in S chelo or PlasmaOrdered By: Alexa Corona on 05-09-2024 Magnesium [Mass/Vol] Magnesium [Mass/volume] in Serum or Plasma 1.9-2.7 [facility] Natriuretic peptide B [Mass/ Vol]Ordered By: Alexa Corona on 05-09-2024 Natriuretic peptide B (Bld) [Mass/Vol] BNP ser/plas High 5-100 [facility] Troponin I High Sensitivityo n 05-09-2024 Troponin I High Sensitivity 42 High 0-20 [facility] Comment on above: Result Comment: The Troponin units of report have been changed to meet the Chest Pain Accreditation requirement, element EC5.M1l2. Troponin units are changed from pg/ml to ng/L. Also, the decimal is removed and results are in whole numbers. PERFORMED BY: [address] [address] PATHOLOGIST MANAGER POOL DEMOND ESCOBAR M.D. Performed By: #### G LULS #### Point of Care testing , X-ray reportOrdered By: Noe Pitts on 05-09-2024 Study report [facility] Main [place] [id number] XRay Report Signed Patient: Leighton Arciniega MR#: [id number] : 1945 Acct:[id number] Age/Sex: 78 / M ADM Date: 5 Loc: Room: [address] [place] [address] Type: ADM IN Attending Dr: Devan Drake [...] Noe Pitts M.D.05/09/2024 10:26 PM Dictation Location: [place] [address] Transcribed By: [facility] 05/09/242225 Dictated By: Noe Pitts II, MD 05/09/242223 Signed By: 05/09/242225 [facility] Work Phone: XR chest 2V*on 05-09-2024 XR chest 2V* [facility] Main [place] [address] [place] [address] XRay Report Signed Patient: Leighton Arciniega MR#: [id number] : 1945 Acct:[id number] Age/Sex: 78 / M ADM Date: 05/09/24 Loc: Room: [address] [place] [address] Type: ADM IN Attending Dr: Devan Drake [...] Noe Pitts M.D.05/09/2024 10:26 PM Dictation Location: [id number] Transcribed By: [place] 05/09/242225 Dictated By: Noe Pitts II, MD 05/09/242223 Signed By: 05/09/242225 Normal [facility] Ambulatory Visit Summaryon 0 04-26-2024 [...] Mica Car MD Where: [facility] [address] [place] [address] [place] [address] 2024 11:00 AM EDT With: Where: [facility] You Need to Schedule the Following Appointments Follow Up with Josep SANDHU, Mica Johns, URL, URO When: Where: Medications What How Much When Instructions New finasteride (finasteride 5 mg Tab) 1 Tablets By Mouth Every day Refills: 11 Pickup at [id number] Unchanged terazosin (terazosin 10 mg Cap) 1 [...] Duration: 3 (more content not included)... Normal [facility] Urology Office/Clinic Noteon 04-26-2024 Urology Office/Clinic [...] unspecified) Pt states he was admitted at [facility] x 4 days due to PNA, Gomez removed and discharged 04/08/24. Pt states he presented back to [facility] ER due to UR. Gomez placed, [...] scan, ~ 80 g) S/p Rezum by [facility] 02/14/24 - 9 treatments, Rt [...] further bleeding since then. Pt went to [facility] 02/26/24 d/t persistent dysuria. Admitted for 3 days. Received IV abx. Dc'd on Cipro x 10d and Levsin. Urine and blood cx both came back neg. [facility] ER 04/08/24 U.Cx was negative. Pt had an infection at the time of him being admitted in the hospital, is currently on abx. Advised pt to continue to abx that was given at the time of the ER visit. Started on Levaquin 500mg qd x3 wks 04/12/24. -Complete ATB course -See #3 5. 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 Elevated risk [...] DM (diabetes (more content not included)... Normal [facility] Comment on above: Result Comment: Elec tronically Signed By: Josep SANDHU, Mica Johns\.br\Date and Time Signed: 04/26/24 11:59 EST\.br\Electronically Co-Signed [...] AM EST With: Where: [facility] [address] [place] [address] [place] [address]- Wednesday 1:00 PM EST With: Mica Car MD Where: [facility] [address] [place] [address] [place] [address] 2024 11:00 AM EDT With: Where: [facility] You Need to Schedule the Following Appointments Follow Up with Josep SANDHU, Mica Johns, URL, URO When: In 1 month Comments: w/PVR Where: Medications What How Much When Instructions New levofloxacin (Levaquin 500 mg Tab) 1 Tablets By Mouth Every 24 hours Duration: 3 Weeks Pickup at [id number] Unchanged acetaminophen (Tylenol Extra Strength 500 mg [...] 3 time (more content not included)... Normal [facility] Urology Office/Clinic Noteon 04-12-2024 Urology Office/Clinic Note Urology Office/Clinic Note Chief Complaint 1 mth f/u HPI Staff 78yr old male pt here for 1mo f/u with PVR. S/p Cystoscopy, TRUS 01/27/2024, Rezume done on 02/14/24 w/ Dr. Car. Previous Dx: uti, BPH with urinary obstruction, anticoagulated *terazosin 10 mg qd, sildenafil 100mg PRN pt has Gomez. Pt states he was in [facility] for 4 days for pneumonia, Wednesday he was released and Gomez was taken out. Pt then states he could not urinate so he went back to [facility] and they placed the Gomez. History [...] has Gomez. Pt states he was in [facility] for 4 days for pneumonia, Wednesday he was released and Gomez was taken out. Pt then states he could not urinate so he went back to [facility] and they placed the Gomez, PVR [...] further bleeding since then. Pt went to [facility] ER 02/26/24 d/t persistent dysuria. Admitted for 3 days. Received IV abx. Dc'd on Cipro x 10d and Levsin. Urine and blood cx both came back neg. [facility] ER 04/08/24 U.Cx was negative. Pt [...] be stoppe (more content not included)... Normal [facility] Comment on above: Result Comment: Elec tronically Signed By: Josep SANDHU, Mica Jhons\.br\Date and Time Signed: 04/12/24 12:07 EST\.br\Electronically Co-Signed By: Kavita Mukherjee\.br\Date and Time Co-Signed: 04/12/24 11:48 EST Urine Cultureon 03-28-2024 Bacteria identified Cx Nom (U) No Growth 2 Days PERFORMED BY: [facility] [address] [place] [address] PATHOLOGIST MANAGER POOL DEMOND ESCOBAR M.D. Normal [facility] Comment on above: Performed By: #### C UU ####[facility] [place] [place] [address] [facility] Urine cultureOrdered By: Derek Vasquez on 03-28-2024 Bacteria identified Cx Nom (U) Urine culture [facility] Bacteria identified Cx Nom (U) Urine culture [facility] C Urineon 03-26-2024 Bacteria identified Cx [...] Locations R1: This test was performed at: [facility], [address] [place] [address], [address] , , [facility] Comment on above: Performed By: #### 2 [id number] #### [facility] [address] [place] [address] Main OR Preoperative Recordo n 03-20-2024 Main OR Preoperative Record Main OR Preoperative Record Holding Area Document Type FTURO Summary Primary Physician: Mica Car MD Finalized Date/Time: 03/20/24 16:29:34 Pt. Name: LEIGHTON ARCINIEGA D.O.B./Sex: 1945 Male Med Rec #: [id number] Physician: Mica Car MD Financial #: [id number] Pt. Type: O Room/Bed: / Admit/Disch: 12/27/23 [...] Complaints of Pain: No Skin Integrity Intact, Anson, Warm, & Dry Vitals - EU Blood Pressure 122/75 Pulse 81 bpm Respirations 18 br/min SPO2 96 % Additional None RN Reviewed Yes Specimens Collected Last Modified By: Ankita Gray RN 12/27/23 11:25:48 Finalized By: MICHELLE Marks RN, Ruthann Document Signatures Signed By: Latha David LPN 12/27/23 11:01 Latha David LPN 12/27/23 11:02 MICHELLE Marks RN, Ruthann 03/20/24 16:29 Normal [facility] Urine Cultureon 03-11-2024 Bacteria identified Cx Nom (U) ORGANISM: Prudnece glabrata (O:CANGLA) Brady Count 75,000 PERFORMED BY: [facility] [address] [place] [address] PATHOLOGIST MANAGER POOL DEMOND ESCOBAR M.D. Normal [facility] Comment on above: Performed By: #### C UU ####[facility] [address] [place] [address] [facility] Urine cultureOrdered By: Derek Vasquez on 03-11-2024 Bacteria identified Cx Nom (U) Abnormal [facility] Bacteria identified Cx Nom (U) Abnormal [facility] Urology Office/Clinic Noteon 03-02-2024 Urology Office/Clinic [...] that he had 3 day stay at [facility] on 02/26/24 for severe UTI [...] further bleeding since then. Pt went to [facility] 02/26/24 d/t persistent dysuria. Admitted for [...] 124ml Told him to continue Alfuzosin. Ordered: [id number] Measure Post Void residual urine and/or bladder [...] Urnls Dip Stick Auto w/o Microscopy POC [id number] 3. Anticoagulated (Z79.01: intermodal customer service (current) use of anticoagulants) on Eliquis. Follow-up [...] Hypercholesteremia Inco (more content not included)... Normal [facility] Comment on above: Result Comment: Elec tronically Signed By: NATA TA PA-C\.br\Date and Time Signed: 03/02/24 17:13 EST\.br\Electronically Co-Signed By: Martir Shea\Anisabr\Date and Time Co-Signed: 03/02/24 13:38 EST ECG 12 Leadon 03-01-2024 AV paced rhythm [facility] Work Phone: URINE CULTUREon 02-19-2024 Bacteria identified Cx Nom (U) CULTURE RESULTS 10-50,000 ORGANISMS/mL NORMAL UROGENITAL ELIN Normal [facility] Comment on above: Performed By: #### 6 30-4 #### [facility] ([id number]) [address], [address] [place] [address] URN MACROSCOPIC NURon 2023 BILIRUBIN LETHA Negative Normal NEG [facility] Comment on above: Performed By: #### N UM #### [facility] ([id number]) [address] [place] [address] BLOOD/HGB LETHA Large Abnormal NEG [facility] Comment on above: Performed By: #### N UM #### [facility] ([id number]) [address] [place] [address] GLUCOSE LETHA >=1000 Abnormal NEG [facility] Comment on above: Performed By: #### N UM #### [facility] ([id number]) [address] [place] [address] KETONES LETHA Negative Normal NEG [facility] Comment on above: Performed By: #### N UM #### [facility] ([id number]) [address] [place] [address] LEUKOCYTE ESTERASE LETHA Small Abnormal NEG Pr [facility] Comment on above: Performed By: #### N UM #### [facility] ([id number]) [address] [place] [address] NITRITE LETHA Negative Normal NEG [facility] Comment on above: Performed By: #### N UM #### [facility] ([id number]) [address] [place] [address] PH LETHA 6.0 Normal 5.0-8.[address] [facility] Comment on above: Performed By: #### N UM #### [facility] ([id number]) [address] [place] [address] PROTEIN LETHA 100 mg/dL Abnormal NEG [facility] Comment on above: Performed By: #### N UM #### [facility] ([id number]) [address] [place] [address] SPECIFIC GRAVITY LETHA 1.015 Normal 1.003-1.035 [facility] Comment on above: Performed By: #### N UM #### [facility] ([id number]) [address] [facility], [place] [address] UROBILINOGEN LETHA 0.2 eu/dL Normal <1.1 [facility] Comment on above: Performed By: #### N UM #### [facility] ([id number]) [address] [facility] [address] [facility] [address], [place] [address] Inpatient Patient Summaryon 02-14-2024 Inpatient Patient Summary Inpatient Patient Summary [address] [address] Clinical Summary Person Information Name: LEIGHTON ARCINIEGA Age: 78 Years : 1945 Sex: Male PCP: Lori Medina MD Marital Status: Race: White Ethnicity: Non- or Language: Uzbek Visit Id: Visit Reason: BPH WITH URINARY OBSTRUCTION Speciality: Acuity: Enc Type: Outpatient Med Service: Surgery Arrival: 02/14/2024 09:35:51 Discharge: Dispo Type: Address: [facility] LINDEN [address]ONE[address] [facility] [id number] Provider Notes: Diagnosis: BPH with obstruction/lower urinary [...] Mouth every day as needed for pain. acetaminophen-hydrocod one ([place]idge[place] 325 mg-5 mg oral tablet) 1 Tablets [...] Information: EU - Rezum Discharge Instructions (CUSTOM) [facility] Main [place] Intraoperative Recor don 02-14-2024 Main OR Intraoperative Record Main OR Intraoperative Record IntraOp Document Type FTURO Summary Primary Physician: Mica Car MD Finalized Date/Time: 02/14/24 12:08:58 Pt. Name: ARCINIEGA LEIGHTONMARTÍNEZ [place]/Sex: 1945 Male Med Rec #: [id number] Physician: Mica Car MD Financial #: [id number] Pt. Type: O Room/Bed: / Admit/Disch: 02/14/24 [...] 3 Case Attendee Josep SANDHU, Jocy Perea CST, Aura Zambrano Role Performed Surgeon - Primary Tool Crib Clerk - Primary Scrub - Primary Time In [...] 12:08 Jocy Corral 02/14/24 12:08 [facility] Main OR Preoperative Recordo n 02-14-2024 Main OR Preoperative Record Main OR Preoperative Record Holding Area Document Type FTURO Summary Primary Physician: Mica Car MD Finalized Date/Time: 02/14/24 11:48:27 Pt. Name: LEIGHTON ARCINIEGA Tyrese MuirB./Sex: 1945 Male Med Rec #: [id number] Physician: Mica Car MD Financial #: [id number] Pt. Type: O Room/Bed: / Admit/Disch: 02/14/24 [...] Complaints of Pain: No Skin Integrity Intact, Anson, Warm, & Dry Vitals - EU Blood Pressure 152/74 Pulse 61 bpm Respirations 18 br/min SPO2 97 % Additional None RN Reviewed Yes Specimens Collected Last Modified By: Jocy Corral 02/14/24 11:48:23 Finalized By: Jocy Corral Document Signatures Signed By: Latha David LPN 02/14/24 11:05 Jocy Corral 02/14/24 11:48 Jocy Corral 02/14/24 11:48 Normal [facility] Operative Reporton Operative Report Operative Report Patient: LEIGHTON ARCINIEGA Age: 78 years Sex: Male : 1945 Associated Diagnoses: None Author: Mica Car MD Procedure Operative Information Details: Date/ Time: 02/14/2024 12:02:00. Pre-Op Dx: BPH w/ LUTS - N40.1. Post-Op Dx: Same. Anesthesia Type: Local. Procedure: REZUM ablation of the prostate. Complications: None. Risks/Benefits/Informe d Consent: Surgical risks, benefits, details of the procedure have been explained to the patient, Full informed consent has been obtained. Indications: The patient has BPH with LUTS and presents for the [facility] trans-urethral water vapor ablation of the prostate, [...] clearer. Follow-up in 1 month PVR.. Normal [facility] Comment on above: Result Comment: Elec tronically Signed By: Josep SANDHU, Mica Johns\.deann\Date and Time Signed: 02/14/24 12:03 EST Outpatient Surgery Discharge Instructionon 02-14-2024 Outpatient Surgery Discharge Instruction Outpatient Surgery Discharge Instruction [place] [id number] Patient Discharge Instructions PERSON INFORMATION Name: LEIGHTON [...] Saturday 02/17. Follow up appointment with Dr. aCr in 1 month with PVR Type Location [...] While there (more content not included)... Normal [facility] Ambulatory Visit Summaryon 1 04-01-2023 Ambulatory [...] (Tylenol Extra Strength 500 mg oral tablet) acetaminophen-hydrocod one ([place] 325 mg-5 mg oral tablet) allopurinol (allopurinol [...] Josep SANDHU, CHASIDY RichardL, URO When: Comments: Tonie 02/14/24 Where: Medications What How Much When Instructions Unchanged acetaminophen (Tylenol Extra Strength 500 mg oral tablet) 2 Tablets By Mouth Every day as needed for for pain Contact prescribing physician if questions or concerns Unchanged acetaminophen-hydrocod one ([place] 325 mg-5 mg oral tablet) 1 Tablets [...] omeprazole (omep (more content not included)... Normal [facility] Urology Office/Clinic Noteon 01-31-2024 Urology Office/Clinic Note Urology Office/Clinic Note Chief [facility] HPI Staff 78 year old male patient presents today for a [facility] ER follow up 01/23/24. Pt [...] with voice recognition artificial intelligence software, specifically [employer], Periscope and or [employer]. Substitutions may have occurred due to the [...] Urinary retention (R33.9: Retention of urine, unspecified) [facility] with dysuria and difficulty urinating. [...] (N52.9: Male erectile dysfunction, unspecified) Hx of DC in 2002. Has pacemaker in place. Denies [...] in medic (more content not included)... Normal [facility] Comment on above: Result Comment: Elec tronically Signed By: MICHAEL Sr APRN, Anna Herrera\.br\Date and Time Signed: 01/31/24 16:26 EST URINE CULTUREon 01-24-2024 Bacteria identified Cx Nom (U) CULTURE RESULTS NO GROWTH AT <1000 CFU/mL Normal [facility] Comment on above: Performed By: #### 6 30-4 #### [facility] ([id number]) [address] [facility], [address] [place] [address] URN MACROSCOPIC NURon 2023 BILIRUBIN LETHA Negative Normal NEG [facility] Comment on above: Performed By: #### N UM #### [facility] ([id number]) [address] [place] [address], [place] [address] BLOOD/HGB LETHA Trace Abnormal NEG [facility] Comment on above: Performed By: #### N UM #### [facility] ([id number]) [address] [place] [address] GLUCOSE LETHA >=1000 Abnormal NEG [facility] Comment on above: Performed By: #### N UM #### [facility] ([id number]) [address] [place] [address] KETONES LETHA Negative Normal NEG [facility] Comment on above: Performed By: #### N UM #### [facility] ([id number]) [address] [place] [address] LEUKOCYTE ESTERASE LETHA Large Abnormal NEG Pr [facility] Comment on above: Performed By: #### N UM #### [facility] ([id number]) [address] [place] [address] NITRITE LETHA Negative Normal NEG [facility] Comment on above: Performed By: #### N UM #### [facility] ([id number]) [address] [place] [address] PH LETHA 6.0 Normal 5.0-8.[address] [facility] Comment on above: Performed By: #### N UM #### [facility] ([id number]) [address] [place] [address] PROTEIN LETHA 100 mg/dL Abnormal NEG [facility] Comment on above: Performed By: #### N UM #### [facility] ([id number]) [address] [place] [address] SPECIFIC GRAVITY LETHA 1.015 Normal 1.003-1.035 [facility] Comment on above: Performed By: #### N UM #### [facility] ([id number]) [address] [place] [address] UROBILINOGEN LETHA 0.2 eu/dL Normal <1.1 [facility] Comment on above: Performed By: #### N UM #### [facility] ([id number]) [address] [place] [address] [place] [address] Inpatient Patient Summaryon 12-27-2023 Inpatient Patient Summary Inpatient Patient Summary [address] [address] Clinical Summary Person Information Name: LEIGHTON ARCINIEGA Age: 78 Years : 1945 Sex: Male PCP: Lori Medina MD Marital Status: Race: White Ethnicity: Non- or Language: Uzbek Visit Id: Visit Reason: BPH WITH URINARY OBSTRUCTION Speciality: Acuity: Enc Type: Outpatient Med Service: Surgery Arrival: 12/27/2023 09:33:05 Discharge: Dispo Type: Address: [address] [place] [address] [address] [facility] [id number] Provider Notes: Diagnosis: Anticoagulated; Other obstructive and [...] Mouth every day as needed for pain. acetaminophen-hydrocod one (Ridgeville 325 mg-5 mg oral tablet) 1 Tablets [...] - Cystoscopy Discharge Instructions (CUSTOM) [facility] Main [place] Intraoperative Recor don 12-27-2023 Main OR Intraoperative Record Main OR Intraoperative Record IntraOp Document Type FTURO Summary Primary Physician: Mica Car MD Finalized Date/Time: 12/27/23 11:42:38 Pt. Name: LEIGHTON ARCINIEGA Tyrese MuirB./Sex: 1945 Male Med Rec #: [id number] Physician: Mica Car MD Financial #: [id number] Pt. Type: O Room/Bed: / Admit/Disch: 12/27/23 [...] Micky Vargas Role Performed Surgeon - Primary Tool Crib Clerk - Primary Scrub - Primary Time In [...] By: Ankita Gray RN 12/27/23 11:42 Normal [facility] Operative Reporton Operative Report Operative Report Patient: LEIGHTON ARCINIEGA Age: 78 years Sex: Male : 1945 Associated Diagnoses: None Author: Mica Car MD Procedure Operative Information Details: Date/ Time: 12/27/2023 12:10:00. Pre-Op Dx: BPH w/ LUTS - N40.1. Post-Op Dx: Feeling of incomplete bladder emptying (CBG89-ZO R39.14, Working, Medical), Anticoagulated (ZDY91-EL Z79.01, Discharge, Medical), Same. Anesthesia Type: Local. Procedure: Local Cystoscopy. Complications: None. Risks/Benefits/Informe d Consent: Surgical risks, benefits, details of the [...] Valium prior to procedure. Will need driver medic. -Will need blood thinners held prior to procedure. Elevated risk of bleeding discussed. -Patient did better on terazosin. Will DC tamsulosin and restart terazosin 10 mg daily. [facility] [place] Normal [facility] Comment on above: Result Comment: Elec tronically Signed By: Josep SANDHU, Mica Johns\.deann\Date and Time Signed: 12/27/23 12:14 EDT Outpatient Surgery Discharge Instructionon 12-27-2023 Outpatient Surgery Discharge Instruction Outpatient Surgery Discharge Instruction [place] [id number] Patient Discharge Instructions PERSON INFORMATION Name: LEIGHTON [...] When: Mica Car Comments: Office to schedule [facility] Location Start [facility] Pacemaker (FT) FT.CARDIO 06/01/2024 11:00 AM 06/01/2024 [...] ARCINIEGA, have received the attached patient education materials/instructions and have verbalized understanding: May we do a follow up call? Yes No I was present when discharge instructions were given Patient Signature Date Clinican/Nurse Signature ___ Date You may receive a survey from Jacquie Mckeon asking you to rate your care experience. Your feedback is important and will help us understand what we do well and how we can improve the quality of care we provide to you, your loved ones and our community. It?s an honor to serve you. Thank you for choosing [facility] Normal [facility] Ambulatory Visit Summaryon 0 11-12-2023 Ambulatory Visit Summary Ambulatory Visit Summary LEIGHTON ARCINIEGA :1945 Visit Date:11/12/2023 Ambulatory Visit Instructions Your Diagnosis BPH with urinary obstruction Incomplete bladder emptying ED (erectile dysfunction) Screening PSA (prostate specific antigen) Your Care Team Attending Physician - Mica Car MD Primary Care Physician - Lori Medina MD This Is Your Medications List sildenafil (sildenafil 100 mg Tab) tamsulosin (tamsulosin 0.4 mg Cap) Contact prescribing physician if questions or concerns acetaminophen (Tylenol Extra Strength 500 mg oral tablet) acetaminophen-hydrocod one ([place] 325 mg-5 mg oral tablet) allopurinol (allopurinol [...] prescribing physician if questions or concerns Unchanged acetaminophen-hydrocod one ([place] 325 mg-5 mg oral tablet) 1 Tablets [...] Mouth E (more content not included)... Normal [facility] Urology Office/Clinic Noteon 11-12-2023 Urology Office/Clinic [...] (N52.9: Male erectile dysfunction, unspecified) Hx of DC in 2002. Has pacemaker in place. Denies [...] With When Contact Information Josep SANDHU, Mica Jonhs, URL, URO Additional Instructions: schedule cysto/TRUS for [...] antigen) Seborr (more content not included)... Normal [facility] Comment on above: Result Comment: Elec tronically Signed By: Mica Car MD\.br\Date and Time Signed: 11/12/23 16:43 EDT\.br\Electronically Co-Signed By: Maria Luz Mejia.br\Date and Time Co-Signed: 11/12/23 16:14 EDT PTH [place] 10-15-2023 Parathyrin.intact [Mass/Vol] 49 pg/mL Invalid Interpretation Code 15-65 [facility] Comment on above: Result Comment: Perf ormed at: [facility] [address] [id number] PhD Carlos Singh Performed By: #### 1 [id number] #### [facility] [address] [place] [address] ED Clinical Summaryon 2023 ED Clinical Summary ED Clinical Summary [address] [address] ED Clinical Summary Person Information Name: LEIGHTON ARCINIEGA Yaa/[facility] Age: 77 Years : 1945 Sex: Male [...] 13:18:55 10/14/2023 13:18:55 ADDRESS: Danie TONEY [address] [place] [phone] PHYS DOC NOTES: MEDICAL INFORMATION: Prescriptions Given: New Medications [id number], [address], [place] [id number], [phone] acetaminophen-hydrocod one (Ridgeville 325 mg-5 mg oral tablet) 1 Tablets [...] EDUCATION INFORMATION: Instructions: Acute Knee Pain, Adult, Izil-xu-Pxal Follow up: With: Address: When: Andrea Espana [address] [place] [address] Business (1) In 3 days 10/17/2023 With: Address: When: Call to schedule a follow-up appointment with your orthopedic surgeon. Use the Ridgeville as needed for pain along with icing. . If you are unable to get in with your orthopedic surgeon, I have provided a referral for another one. In 3 days 10/17/2023 With: Address: When: Lori Medina [address] [facility] [place] [address] Business (1) In 3 days DIAGNOSIS: Posterior left knee pain Normal [facility] ED Note-Physicianon 10-14-19 ED Note-Physician ED [...] he is being prescribed 4 doses of Ridgeville. He was educated on appropriate use of this. Patient will follow-up with orthopedic surgery for further management of care. He was advised to return to the ED with any worsening symptoms. Patient is agreeable with the plan and all questions were answered. Assessment/Plan Posterior left knee pain (M25.562: Pain in left knee) Orders: acetaminophen-hydrocod one, 1 tab(s), Oral, q4hr for pain, 4 tab(s), Refill(s) 0, [id number], 177, cm, 10/14/23 11:44:00 EDT, Height/Length Dosing, 104.8, kg, 10/14/23 11:44:00 EDT, Weight Dosing Disposition Plan Patient Discharge Condition stable Discharge Disposition home Discharge Prescription List Prescriptions Ridgeville 325 mg-5 mg oral tablet, 1 tab(s), Oral, q4hr, PRN Follow-up With When Contact Information Andrea Espana In 3 days 10/17/2023 EDT [address] [place] [address]- Business (1) Additional Instructions: Call to schedule a follow-up appointment with your orthopedic surgeon. Use the Ridgeville as needed for pain along with icing. . If you are unable to get in with your orthopedic surgeon, I have provided a referral for another one. In 3 days 10/17/2023 EDT Additional Instructions: Lori Medina In [address] [facility] [address]- Business (1) Additional Instructions: Patient Education Acute Knee Pain, Adult, Msjr-jz-Vzvj Attestation Patient seen and evaluated by the physician medical assistant. Attending physician was present in the emergency department and supervised care. This visit was performed by both the physician and an APC. I performed all aspects of the MDM as documented. This report was transcribed using voice recognition software. Every effort was made to ensure accuracy, however, inadvertently computerized parish visitor mistakes may be present. Appropriate healthcare PPE was used in evaluating this patient. The patient was placed in a mask. The healthcare provider was wearing mask, gloves, and utiliz (more content not included)... Normal [facility] Comment on above: Result Comment: Elec tronically Signed By: Vini Quinteros DO\.br\Date and Time Signed: 10/14/23 16:09 EDT\.br\Electronically Co-Signed By: Nayla William PA-C\.br\Date and Time Co-Signed: 10/14/23 13:46 EDT ED Patient Summaryon 024 ED Patient Summary ED Patient Summary [facility] [address] [place], [place] [address] Patient Discharge Instructions Person Information Name: LEIGHTON ARCINIEGA Age: 77 Years Arrival Date: 10/14/2023 11:36:13 Discharge Diagnosis: Posterior left knee pain Primary Care Physician: Lori Medina MD Provider Information Primary Provider: Vini Quinteros DO [employer] Technician:Nayla William PA-C The exam and treatment you received in the Emergency Department were for an urgent problem and are not intended as complete care. It is important that you follow up with a doctor, nurse practitioner, or physician?s medical assistant for ongoing care. If your symptoms become worse or you do not improve as expected and you are unable to reach your usual health care provider, you should return to the Emergency Department. We are available 24 hours a day. LEIHGTON ARCINIEGA has been given the following list of patient education materials, prescriptions and follow-up instructions: Follow-up Instructions: With: Address: When: Andrea Espana [address] [place] [address] Business (1) In 3 days 10/17/2023 With: Address: When: Call to schedule a follow-up appointment with your orthopedic surgeon. Use the Ridgeville as needed for pain along with icing. . If you are unable to get in with your orthopedic surgeon, I have provided a referral for another one. In 3 days 10/17/2023 With: Address: When: Lori Medina [address] [place] [address], [facility] [place] [address] Business (1) In 3 days In the event that this physician does not participate in your insurance network, please consult with your insurance company to find a nearby participating provider. Patient Education Materials: Acute Knee Pain, Adult, Mxdx-hr-Iscu A MESSAGE TO ALL PATIENTS REGARDING OPIOIDS PRESCRIPTION OPIOIDS: WHAT YOU NEED TO KNOW Prescription opioids can be used to help relieve ozwaosxr-nc-flblto pain and are often prescribed following a [...] or yo (more content not included)... Normal [facility] XR Knee Complete 4+ Views Le fton 10-14-2023 XR Knee Complete 4+ Views Left Exam Date/Time: 10/14/2023 12:50 EDT Reason for Exam: Pain, Traumatic Report IMPRESSION: No acute osseous findings. EXAMINATION/TECHNIQUE: XR Knee Complete 4+ Views Left HISTORY: [...] mGy = na DAP = na Normal [facility] Screenson 06-17-2023 Screens [id number] 0TIFF Normal [facility] Screens [id number]#1.0 0TIFF Normal [facility] Ambulatory Visit Summaryon 0 06-16-2023 Ambulatory [...] these instructions at home: Medicines ? Take vymw-heq-asmkrqr and prescription medicines only as told by [...] include cig (more content not included)... 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 Denies [...] Information Josep SANDHU, Mica Johns, URL, URO [address], [place] [phone] Additional Instructions: Has f/u already scheduled 11/12/23 [...] Amputation, Tonsillectomy. (more content not included)... Normal [facility] Comment on above: Result Comment: Elec tronically Signed By: NATA AT PA-C\.br\Date and Time Signed: 06/16/23 10:56 EDT\.br\Electronically Co-Signed By: Kriss Frankel\.deann\Date and Time Co-Signed: 06/16/23 10:48 EDT [place] 05-10-2023 Screens [id number]#1.0 0TIFF Normal [facility] Screens [id number] 0TIFF Normal [facility] Ambulatory Visit Summaryon 0 05-07-2023 Ambulatory [...] NATA TA PA-C Where: [facility] Normal [address] [place] [address]- \.br\ You Need to Schedule the Following Appointments\.b r\ Follow Up with NATA TA PA-C, URL When: \.br\ Comments:\.br\ 1 mos w/ PVR \.br\ Where:\.br\ [address]br\ [place] [address]\.br\ [phone]\.br\ Medications\.br \ What How Much When Instructions\.b r\ New tadalafil (tadalafil 10 mg Tab) 1 Tablets By Mouth As Directed as needed for for erectile dysfunction Refills: 3 Take one tab 1 hour prior to sexual activity. Do not exceed 20mg in 48hrs. Pickup at [facility] #62033\.br\ New tamsulosin (tamsulosin 0.4 mg Cap) 1 Capsules By Mouth Once a day (in the evening) Refills: 11 Pickup at [facility] #[id number]\.br\ Unchanged acetaminophen (Tylenol Extra Strength 500 mg [...] questions or concerns \.br\ Unchanged calcium-vitamin D (calcium-vitami n D 600 mg-400 intl units oral tablet) [...] physician if questions or concerns \.br\ Pharmacy Information\.br \ [id number]: [address], [place] [phone]\.br\ Allergies\.br\ Monopril (Dry cough)\.br\ Strawberries (rash)\.br\ Tomatoes (rash)\.br\ metoprolol (Hypotension)\. br\ Problems\.br\ Ongoing - Any problem that you are currently receiving treatment for.\.br\ Anticoagulated\ .br\ Arthritis\.br\ Aspirin long-term use\.br\ BPH with urinary obstruction\.br \ CKD (chronic kidney disease) stage 3, GFR 30-59 ml/min\.br\ Diabetes\.br\ ED (erectile dysfunction)\.b r\ Emphysema/COPD\ .br\ Epidermal cyst\.br\ Extreme obesity\.br\ Former smoker\.br\ Heart disease\.br\ Hx of migraine headaches\.br\ Hypercholestere charles\.br\ Incomplete bladder emptying\.br\ Kidney stones\.br\ Myocardial infarct\.br\ Nocturia\.br\ Prostate hyperplasia with urinary obstruction\.br \ Seborrheic keratoses\.br\ SSS (sick sinus syndrome)\.br\ Urinary urgency\.br\ Historical - Any problem that you are no longer receiving treatment for.\.br\ Acute kidney failure\.br\ Asthma\.br\ CHF (congestive heart failure)\.br\ DM (diabetes mellitus), type 2\.br\ GERD (gastroesophage al reflux disease)\.br\ HTN (hypertension)\ .br\ OA (osteoarthritis )\.br\ Obesity\.br\ Psoriasis\.br\ Patient Survey\.br\ You may receive a survey via text or e-mail asking about your office visit. Please share your experience with us by completing your survey. We appreciate your feedback and thank you for choosing us for your care.\.br\ Education Materials\.br\ Erectile Dysfunction\.br \ Erectile dysfunction (ED) is the inability to get or keep an erection in order to have sexual intercourse. ED is considered a symptom of an underlying disorder and is not considered a disease. ED may include:\.br\ ? \.br\ Inability to get an erection.\.br\ ? \.br\ Lack of enough hardness of the erection to allow penetration.\.b r\ ? \.br\ Loss of erection before sex is finished.\.br\ What are the causes?\.br\ This condition may be caused by:\.br\ ? \.br\ Physical causes, such as:\.br\ ? \.br\ Artery problems. This may include heart disease, high blood pressure, atherosclerosis , and diabetes.\.br\ ? \.br\ Hormonal problems, such as low testosterone.\. br\ ? \.br\ Obesity.\.br\ ? \.br\ Nerve problems. This may include back or pelvic injuries, multiple sclerosis, Parkinson's disease, spinal cord injury, and stroke.\.br\ ? \.br\ Certain medicines, such as:\.br\ ? \.br\ Pain relievers.\.br\ ? \.br\ Antidepressants .\.br\ ? \.br\ Blood pressure medicines and water pills (diuretics).\.b r\ ? \.br\ Cancer medicines.\.br\ ? \.br\ Antihistamines. \.br\ ? \.br\ Muscle relaxants.\.br\ ? \.br\ Lifestyle factors, such as:\.br\ ? \.br\ Use of drugs such as marijuana, cocaine, or opioids.\.br\ ? \.br\ Excessive use of alcohol.\.br\ ? \.br\ Smoking.\.br\ ? \.br\ Lack of physical activity or exercise.\.br\ ? \.br\ Psychological causes, such as:\.br\ ? \.br\ Anxiety or stress.\.br\ ? \.br\ Sadness or depression.\.br \ ? \.br\ Exhaustion.\.br \ ? \.br\ Fear about sexual performance.\.b r\ ? \.br\ Guilt.\.br\ What are the signs or symptoms?\.br\ Symptoms of this condition include:\.br\ ? \ [facility] Ambulatory Visit Summary LEIGHTON ARCINIEGA :1945 [...] Johns, URL, URO When: Comments: 6 mos ([facility]) Where: [address] [place] [phone] Medications What How Much When Instructions Unchanged [...] Every da (more content not included)... Normal [facility] Patient Educationon 05-07-19 Patient Education Urology [...] these instructions at home: Medicines ? Take sodl-jch-vhtkefn and prescription medicines only as told by [...] include cig (more content not included)... Normal [facility] Urology Office/Clinic Noteon 05-07-2023 Urology Office/Clinic [...] (N52.9: Male erectile dysfunction, unspecified) Hx of DC in 2002. Has pacemaker in place. AMANDA [...] Contact Information Mica Car MD, URL, URO [address], [place] [phone] Additional Instructions: 1 mos w/ PVR Patient Education Erectile Dysfunction IKriss, personally scribed for Dr. Car on 05/07/2023 15:06:02. . Documentation recorded by the scribe, Kriss Frankel, accurately reflects the services(s) I performed and decisions made by me. Authenticated by Dr. Car on 05/07/2023 16:05:51. Problem List/Past Medical History Ongoing Anticoagulated Arthritis Aspirin marshall (more content not included)... Normal [facility] Comment on above: Result Comment: Elec [...] Weight Tips; Status:Complete - Retrospective Authorization; Done: [id number] Some eating tips that can help you lose weight.; Status:Complete - Retrospective Authorization; Done: [id number] Essential hypertension Renew: Carvedilol 6.25 MG Oral Tablet; Take 1 tablet twice daily Hyperlipidemia Renew: Simvastatin 20 MG Oral Tablet; TAKE 0.5 TABLET Bedtime SocHx: Former smoker Tobacco Use Screening; Status:Complete; Done: [id number] Patient Instructions Please bring all medicines, vitamins, [...] education sheet. 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 [...] negative for complaint. Vitals Vital Signs Recorded: [id number] 10: (more content not included)... Normal [facility]formerly known [facility] [employer]) Tobacco Screening.on 023 Adult depression screening assessment No [facility] lk 600 DO Work Phone: Fall risk assessment b) One or more fall s in the last year [facility] Alice truong 600 DO Work Phone: Tobacco use status CPHS b) No [facility] 600 DO Work Phone: CBC AUTO DIFFon 05-28-2022 BASO # 0.0 103/ul Normal 0.0-0.1 [facility] Comment on above: Performed By: #### C BC #### [facility] [address] [place] [address] Dr. Susie Hale Basophils/100 WBC (Bld) 0.5 % Normal 0.2-2.0 [facility] Comment on above: Performed By: #### C BC #### [facility] [address] [place] [address] Dr. Susie Hale EO # 0.1 103/ul Normal 0.0-0.7 [facility] Comment on above: Performed By: #### C BC #### [facility] [address] [address] [address] Susie Hale Eosinophils/100 WBC (Bld) 1.8 % Normal 0.9-7.0 [facility] Comment on above: Performed By: #### C BC #### [facility] [address] [place] [address] Dr. Susie Hale Erythrocyte distribution width (RBC) [Ratio] 13.0 % Normal 11.0-15.0 [facility] Comment on above: Performed By: #### C BC #### [facility] [address] [place] [address] Dr. Susie Hale Hematocrit (Bld) [Volume fraction] 35.0 % Critically low 42.0-54.0 [facility] Comment on above: Performed By: #### C BC #### [facility] [address] [place] [address] Dr. Susie Hale Hemoglobin (Bld) [Mass/Vol] 12.2 g/dL Critically low 14.0-18.0 [facility] Comment on above: Performed By: #### C BC #### [facility] [address] [place] [address] Dr. Susie Hale IG # 0.05 10e3/ul Critically high 0.00-0.03 [facility] Comment on above: Performed By: #### C BC #### [facility] [address] [place] [address] Dr. Susie Hale IG % 0.8 % Critically high 0.0-0.5 [facility] Comment on above: Performed By: #### C BC #### [facility] [address] [place] [address] Dr. Susie Hale LYMPH # 1.9 103/ul Normal 1.2-3.8 [facility] Comment on above: Performed By: #### C BC #### [facility] [address] [place] [address] Dr. Susie Hale Lymphocytes/100 WBC (Bld) 28.7 % Normal 20.5-60.0 [facility] Comment on above: Performed By: #### C BC #### [facility] [address] [place] [address] Dr. Susie Hale MANUAL DIFF REQ NO Normal [facility] Comment on above: Performed By: #### C BC #### [facility] [address] [place] [address] Dr. Susie Hale MCH (RBC) [Entitic mass] 32.1 pg Normal 25.9-34.0 [facility] Comment on above: Performed By: #### C BC #### [facility] [address] [place] [address] Dr. Susie Hale MCHC (RBC) [Mass/Vol] 34.9 g/dL Normal 29.9-35.2 [facility] Comment on above: Performed By: #### C BC #### [facility] [address] [place] [address] Dr. Susie Hale MCV (RBC) [Entitic vol] 92.1 fL Normal 80.0-94.0 [facility] Comment on above: Performed By: #### C BC #### [facility] [address] [place] [address] Dr. Susie Hale MONO # 0.7 103/ul Normal 0.3-0.8 [facility] Comment on above: Performed By: #### C BC #### [facility] [address] [place] [address] Dr. Susie Hale Monocytes/100 WBC (Bld) 10.9 % Normal 1.7-12.0 [facility] Comment on above: Performed By: #### C BC #### [facility] [address] [place] [address] Dr. Susie Hale NEUT # 3.7 103/ul Normal 1.4-6.5 [facility] Comment on above: Performed By: #### C BC #### [facility] [address] [place] [address] Dr. Susie Hale Neutrophils/100 WBC (Bld) 57.3 % Normal 43.0-75.0 [facility] Comment on above: Performed By: #### C BC #### [facility] [address] [place] [address] Dr. Susie Hale Platelet mean volume (Bld) [Entitic vol] 8.5 fL Critically low 9.5-13.5 [facility] Comment on above: Performed By: #### C BC #### [facility] [address] [place] [address] Dr. Susie Hale PLT 238 103/ul Normal 150-450 [facility] Comment on above: Performed By: #### C BC #### [facility] [address] [place] [address] Dr. Susie Hale RBC 3.80 106/ul Critically low 4.70-6.10 [facility] Comment on above: Performed By: #### C BC #### [facility] [address] [place] [address] Dr. Susie Hale WBC 6.5 103/ul Normal 4.0-11.0 [facility] Comment on above: Performed By: #### C BC #### [facility] [address] [place] [address] STROKE HEAD WOon [...] SANAZ CANO Date: 2022-05-28 18:17 Normal [facility] PROF 14(COMP METB)on 023 Albumin [Mass/Vol] 3.5 g/dL Normal 3.4-5.0 [facility] Comment on above: Performed By: #### C MP #### [facility] [address] [address] [address] Susie Hale Albumin/Globulin [Mass ratio] 1.1 {ratio} Normal [facility] Comment on above: Performed By: #### C MP #### [facility] [address] [address] [address] Susie Hale ALP [Catalytic activity/Vol] 87 U/L Normal 46-116 [facility] Comment on above: Performed By: #### C MP #### [facility] [address] [address] [address] Susie Hale ALT [Catalytic activity/Vol] 16 U/L Normal 16-63 [facility] Comment on above: Performed By: #### C MP #### [facility] [address] [address] [address] Susie Hale Anion gap [Moles/Vol] 10.0 mmol/L Normal [facility] Comment on above: Performed By: #### C MP #### [facility] [address] [address] [address] Susie Hale AST [Catalytic activity/Vol] 14 U/L Critically low 15-37 [facility] Comment on above: Performed By: #### C MP #### [facility] [address] [address] [address] Susie Hale Bilirubin [Mass/Vol] 0.2 mg/dL Normal 0.2-1.0 [facility] Comment on above: Performed By: #### C MP #### [facility] [address] [address] [address] Susie Hale Calcium [Mass/Vol] 8.9 mg/dL Normal 8.5-10.1 [facility] Comment on above: Performed By: #### C MP #### [facility] [address] [address] [address] Susie Hale Chloride [Moles/Vol] 105 mmol/L Normal 98-107 [facility] Comment on above: Performed By: #### C MP #### [facility] [address] [address] [address] Susie Hale CO2 [Moles/Vol] 25.7 mmol/L Normal 21.0-32.0 [facility] Comment on above: Performed By: #### C MP #### [facility] [address] [address] [address] Susie Hale Creatinine [Mass/Vol] 1.87 mg/dL Critically high 0.70-1.30 [facility] Comment on above: Performed By: #### C MP #### [facility] [address] [address] [address] Susie Hale EGFR-AF EQUATORIAL GUINEAN 43 mL/min/1.73m2 Critically low >=60 [facility] Comment on above: Performed By: #### C MP #### [facility] [address] [address] [address] Susie Hale EGFR-NON AF EQUATORIAL GUINEAN 35 mL/min/1.73m2 Critically low >=60 [facility] Comment on above: Performed By: #### C MP #### [facility] [address] [address] [address] Susie Hale Globulin (S) [Mass/Vol] 3.2 g/dL Normal [facility] Comment on above: Performed By: #### C MP #### [facility] [address] [address] [address] Susie Hale Glucose [Mass/Vol] 256 mg/dL Critically high 74-106 [facility] Comment on above: Performed By: #### C MP #### [facility] [address] [address] [address] Susie Hale Potassium [Moles/Vol] 3.7 mmol/L Normal 3.5-5.1 [facility] Comment on above: Performed By: #### C MP #### [facility] [address] [address] [address] Susie Hale Protein [Mass/Vol] 6.7 g/dL Normal 6.4-8.2 [facility] Comment on above: Performed By: #### C MP #### [facility] [address] [address] [address] Susie Hale Sodium [Moles/Vol] 137 mmol/L Normal 136-145 [facility] Comment on above: Performed By: #### C MP #### [facility] [address] [address] [address] Susie Hale Urea nitrogen [Mass/Vol] 22.0 mg/dL Critically high 7.0-18.0 [facility] Comment on above: Performed By: #### C MP #### [facility] [address] [address] [address] Susie Hale Urea nitrogen/Creatinine [Mass ratio] 11.8 mg/mg Normal [facility] Comment on above: Performed By: #### C MP #### [facility] Laboratory [address] [address] [address] Susie Hale Office Visit (Cardiology)on 12-16-2021 [...] in adult Healthy Weight Tips; Status:Complete; Done: [id number] Some eating tips that can help you lose weight.; Status:Complete; Done: [id number] Essential hypertension Renew: Carvedilol 6.25 MG Oral Tablet; Take 1 tablet twice daily Hyperlipidemia Renew: Simvastatin 20 MG Oral Tablet; TAKE 0.5 TABLET Bedtime SocHx: Former smoker Tobacco Use Screening; Status:Complete; Done: [id number] Unlinked Stop: Aspirin 325 MG Oral Tablet [...] your visit. Device check as directed per [facility] protocol Follow up in 6-9 months Chief [...] skin r (more content not included)... Normal Touchworks Tobacco Screening.on 022 Adult depression screening assessment No [facility] [email or web address] 600 DO Work Phone: Fall risk assessment a) No falls within the last year [facility] [email or web address] 600 DO Work Phone: Tobacco use status CPHS b) No [facility] [email or web address] 600 DO Work Phone: Tobacco Screening.on 021 Fall risk assessment a) No falls within the last year [facility] [employer] haresh 250 DO Work Phone: Tobacco use status CP b) No [facility] [employer] 250 DO Work Phone: Vital Signs Date Time Vital Sign Value Performing Clinician Facility 06-15-2024 14:44-0400 Body height 177.8 cm Osvaldo Dickinson MD Work Phone: [facility] 06-15-2024 14:44-0400 Body mass index (BMI) [Ratio] 27.15 kg/m2 Osvaldo Dickinson MD Work Phone: [facility] 06-15-2024 14:44-0400 Body weight 85.82 kg Osvaldo Dickinson MD Work Phone: [facility] 06-15-2024 14:44-0400 Diastolic blood pressure 60 mm[Hg] Osvaldo Dickinson MD Work Phone: [facility] 06-15-2024 14:44-0400 Heart rate 72 /min Osvaldo Dickinson MD Work Phone: [facility] 06-15-2024 14:44-0400 Systolic blood pressure 100 mm[Hg] Osvaldo Dickinson MD Work Phone: [facility] 05-27-2024 12:00-0500 Diastolic blood pressure 64 mm[Hg] Lori Medina MD Work Phone: [facility] 05-27-2024 12:00-0500 Heart rate 70 /min Lori Medina MD Work Phone: [facility] 05-27-2024 12:00-0500 Inhaled oxygen flow rate 2 L/min Lori Medina MD Work Phone: [facility] 05-27-2024 12:00-0500 Respiratory rate 18 /min Lori Medina MD Work Phone: [facility] 05-27-2024 12:00-0500 SaO2% (BldA) [Mass fraction] 94 % Lori Medina MD Work Phone: [facility] 05-27-2024 12:00-0500 Systolic blood pressure 123 mm[Hg] Lori Medina MD Work Phone: [facility] 05-27-2024 08:00-0500 Body temperature 97.7 [degF] Lori Medina MD Work Phone: [facility] 05-27-2024 05:17-0500 Body weight 85.6 kg Lori Medina MD Work Phone: [facility] 05-25-2024 14:42-0500 Body height 177.8 cm Lori Medina MD Work Phone: [facility] 05-22-2024 23:41-0500 Inhaled oxygen concentration 30 % Lori Medina MD Work Phone: [facility] 05-13-2024 14:53-0500 SaO2% (BldA) [Mass fraction] 95 % Lori Mdeina MD Work Phone: [facility] 05-13-2024 11:55-0500 Diastolic blood pressure 62 mm[Hg] Lori Medina MD Work Phone: [facility] 05-13-2024 11:55-0500 Heart rate 89 /min Lori Medina MD Work Phone: [facility] 05-13-2024 11:55-0500 Inhaled oxygen flow rate 2 L/min Lori Medina MD Work Phone: [facility] 05-13-2024 11:55-0500 Respiratory rate 17 /min Lori Medina MD Work Phone: [facility] 05-13-2024 11:55-0500 Systolic blood pressure 123 mm[Hg] Lori Medina MD Work Phone: [facility] 05-13-2024 08:00-0500 Body temperature 97.6 [degF] Lori Medina MD Work Phone: [facility] 05-13-2024 06:00-0500 Body weight 88 kg Lori Medina MD Work Phone: [facility] 05-11-2024 04:00-0500 Inhaled oxygen concentration 40 % Lori Medina MD Work Phone: [facility] 05-10-2024 15:22-0500 Body height 177.8 cm Lori Medina MD Work Phone: [facility] 03-01-2024 11:12-0500 Body height 177.8 cm Osvaldo Dickinson MD Work Phone: [facility] 03-01-2024 11:12-0500 Body mass index (BMI) [Ratio] 30.13 kg/m2 Osvaldo Dickinson MD Work Phone: [facility] 03-01-2024 11:12-0500 Body weight 95.25 kg Osvaldo Dickinson MD Work Phone: [facility] 03-01-2024 11:12-0500 Diastolic blood pressure 54 mm[Hg] Osvaldo Dickinson MD Work Phone: [facility] 03-01-2024 11:12-0500 Heart rate 71 /min Osvaldo Dickinson MD Work Phone: [facility] 03-01-2024 11:12-0500 Systolic blood pressure 114 mm[Hg] Osvaldo Dickinson MD Work Phone: [facility] 12-14-2023 13:17-0400 Diastolic blood pressure 70 mm[Hg] Dank Robert DO Work Phone: [facility] 12-14-2023 13:17-0400 Heart rate 68 /min Dank Robert DO Work Phone: [facility] 12-14-2023 13:17-0400 SaO2% (BldA) [Mass fraction] 97 % Dank Robert DO Work Phone: [facility] 12-14-2023 13:17-0400 Systolic blood pressure 152 mm[Hg] Dank Robert DO Work Phone: [facility] 08-25-2023 12:12-0400 Body height 177.8 cm Varghese Caal MD Work Phone: [facility] 08-25-2023 12:12-0400 Body mass index (BMI) [Ratio] 33.43 kg/m2 Varghese Caal MD Work Phone: [facility] 08-25-2023 12:12-0400 Body weight 105.69 kg Varghese Caal MD Work Phone: [facility] 08-25-2023 12:12-0400 Diastolic blood pressure 54 mm[Hg] Varghese Caal MD Work Phone: [facility] 08-25-2023 12:12-0400 Heart rate 60 /min Varghese Caal MD Work Phone: [facility] 08-25-2023 12:12-0400 Systolic blood pressure 126 mm[Hg] Varghese Caal MD Work Phone: [facility] 02-10-2023 11:37-0500 Body height 177.8 cm Varghese Caal MD Work Phone: [facility] 02-10-2023 11:37-0500 Body mass index (BMI) [Ratio] 32.28 kg/m2 Varghese Caal MD Work Phone: [facility] 02-10-2023 11:37-0500 Body weight 102.06 kg Varghese Caal MD Work Phone: [facility] 02-10-2023 11:37-0500 Diastolic blood pressure 58 mm[Hg] Varghese Caal MD Work Phone: [facility] 02-10-2023 11:37-0500 Heart rate 63 /min Varghese Caal MD Work Phone: [facility] 02-10-2023 11:37-0500 Systolic blood pressure 120 mm[Hg] Varghese Caal MD Work Phone: [facility] 07-01-2022 10:54-0400 Body height 177.8 cm Andrea Espinoza Work Phone: [facility] [employer] 600 DO Work Phone: 07-01-2022 10:54-0400 Body mass index (BMI) [Ratio] 32.71 kg/m2 Andrea [facility] 600 DO Work Phone: 07-01-2022 10:54-0400 Body surface area Derived from formula 2.21 m2 Andrea Espinoza Work Phone: [facility] [employer] 600 DO Work Phone: 07-01-2022 10:54-0400 Body weight 103.42 kg Andrea Espinoza Work Phone: [facility] [employer] 600 DO Work Phone: 07-01-2022 10:54-0400 Diastolic blood pressure 64 mm[Hg] Andrea Vasquezroh Work Phone: [facility] 600 DO Work Phone: 07-01-2022 10:54-0400 Heart rate 72 /min Andrea Espinoza Work Phone: [facility] 600 DO Work Phone: 07-01-2022 10:54-0400 Systolic blood pressure 118 mm[Hg] Andrea Espinoza Work Phone: [facility] 600 DO Work Phone: 12-16-2021 11:08-0400 Body height 177.8 cm Andrea Espinoza Work Phone: [facility] [place] 600 DO Work Phone: 12-16-2021 11:08-0400 Body mass index (BMI) [Ratio] 33.86 kg/m2 Andrea Espinoza Work Phone: [facility] 600 DO Work Phone: 12-16-2021 11:08-0400 Body surface area Derived from formula 2.24 m2 Andrea Espinoza Work Phone: [facility] 600 DO Work Phone: 12-16-2021 11:08-0400 Body weight 107.05 kg Andrea Espinoza Work Phone: [facility] 600 DO Work Phone: 12-16-2021 11:08-0400 Diastolic blood pressure 64 mm[Hg] Andrea Vasquezroh Work Phone: [facility] 600 DO Work Phone: 12-16-2021 11:08-0400 Heart rate 72 /min Andrea Espinoza Work Phone: [facility] 600 DO Work Phone: 12-16-2021 11:08-0400 Systolic blood pressure 132 mm[Hg] Andrea Espinoza Work Phone: [facility] 600 DO Work Phone: 01-22-2021 14:36-0400 Body height 177.8 cm Andrea Espinoza Work Phone: [facility] 250 DO Work Phone: 01-22-2021 14:36-0400 Body mass index (BMI) [Ratio] 34.01 kg/m2 Andrea Espinoza Work Phone: [facility] 250 DO Work Phone: 01-22-2021 14:36-0400 Body surface area Derived from formula 2.24 m2 Andrea Espinoza Work Phone: [facility] 250 DO Work Phone: 01-22-2021 14:36-0400 Body weight 107.5 kg Andrea Espinoza Work Phone: [facility] 250 DO Work Phone: 01-22-2021 14:36-0400 Diastolic blood pressure 54 mm[Hg] Andrea Espinoza Work Phone: [facility] 250 DO Work Phone: 01-22-2021 14:36-0400 Heart rate 76 /min Andrea Espinoza Work Phone: [facility] 250 DO Work Phone: 01-22-2021 14:36-0400 Systolic blood pressure 104 mm[Hg] Andrea Espinoza Work Phone: [facility]-[place] 250 DO Work Phone: Encounters Encounter Date Encounter Type Care Provider Facility Start: 08-24-2024 ambulatory Mica M. Lue Facility:[facility] Start: 07-31-2024 End: 07-31-2024 ambulatory Mica M. Lue Facility:[facility] [place] Start: 07-24-2024 End: 07-24-2024 ambulatory Mica M. Lue Facility:[facility] Start: 07-17-2024 End: 07-17-2024 ambulatory Anna X Orzech Facility:[facility] Start: 07-11-2024 End: 07-11-2024 ambulatory Anna X Orzech Facility:[facility] Start: 06-29-2024 End: 06-29-2024 Patient encounter procedure Lori Medina MD Work Phone: [facility] Work Phone: Start: 06-29-2024 End: 06-29-2024 ambulatory Lori Medina MD Work Phone: [facility] Work Phone: Start: 06-29-2024 End: 06-29-2024 ambulatory Osvaldo Romani Facility:[facility] Start: 06-26-2024 Non-patient / Non-visit Nova Medina MD Work Phone: [facility] Work Phone: Start: 06-26-2024 End: 06-26-2024 Patient encounter procedure Lori Medina MD Work Phone: [facility]Res[facility] Work Phone: Start: 06-26-2024 End: 06-26-2024 ambulatory Lori Medina MD Work Phone: [facility] Work Phone: Start: 06-16-2024 End: 06-16-2024 ambulatory Deepti Sherry Facility:[facility] Start: 06-15-2024 End: 06-15-2024 Office outpatient visit 25 minutes Osvaldo Dickinson MD Work Phone: [facility] Comment on above: Nonischemic cardiomy opathy (Multi) (Primary Dx); Sick sinus syndrome (Multi); Paroxysmal atrial fibrillation (Multi); Pacemaker; Mixed hyperlipidemia; Essential hypertension; Stage 4 chronic kidney disease (Multi); Non-smoker; BMI 27.0-27.9,adult; group home resident Start: 06-15-2024 End: 06-15-2024 ambulatory [facility] Start: 05-20-2024 Non-patient / Non-visit Nova Medina MD Work Phone: [facility] Work Phone: Start: 05-20-2024 End: 05-27-2024 Evaluation and management of inpatient Lori Medina MD Work Phone: [facility] [place] [facility] Work Phone: Start: 05-18-2024 End: 05-18-2024 ambulatory Lori Medina MD Work Phone: [facility] Work Phone: Start: 05-18-2024 End: 05-18-2024 Departed Referred Lori Medina MD Work Phone: [facility] Path [facility] Start: 05-18-2024 End: 05-18-2024 ambulatory Mica Car Facility:[facility] Start: 05-18-2024 End: 05-18-2024 ambulatory Mica Car Facility:[facility] Start: 05-13-2024 Non-patient / Non-visit Nova Medina MD Work Phone: [facility] Work Phone: Start: 05-12-2024 ambulatory Mica Car Facility:[facility] Start: 05-09-2024 End: 05-13-2024 Evaluation and management of inpatient Lori Medina MD Work Phone: [facility] [place] [facility] Work Phone: Start: 04-26-2024 End: 04-26-2024 ambulatory [facility] Start: 04-25-2024 End: 04-25-2024 ambulatory Deepti Powell Facility:[facility] Start: 04-25-2024 End: 04-25-2024 ambulatory Mica Car Facility:[facility] Start: 04-12-2024 End: 04-12-2024 ambulatory Mica Car Facility:[facility] Start: 04-08-2024 Non-patient / Non-visit Nova Medina MD Work Phone: [facility] Work Phone: Start: 04-06-2024 End: 04-06-2024 ambulatory Mica Car Facility: [facility] Start: 03-28-2024 End: 03-28-2024 ambulatory Benton Vasquez [facility] Work Phone: Start: 03-28-2024 End: 03-28-2024 Departed Referred Benton Vasquez DO [facility] Start: 03-24-2024 End: 03-24-2024 ambulatory Mica Car Facility:[facility] Start: 03-11-2024 End: 03-11-2024 ambulatory Benton Vasquez Facility:[facility] Start: 03-11-2024 End: 03-11-2024 Departed Referred Benton Christina [facility] Start: 03-02-2024 End: 03-02-2024 ambulatory NATA TA Facility:[facility] Start: 03-01-2024 End: 03-01-2024 Office outpatient visit 25 minutes Osvaldo Dickinson MD Work Phone: [facility] Comment on above: Paroxysmal atrial fi brillation (Multi) (Primary Dx); Sick sinus syndrome (Multi); Pacemaker; Essential hypertension; Cardiomyopathy, unspecified type (Multi); Mixed hyperlipidemia; Stage 4 chronic kidney disease (Multi); Non-smoker; BMI 30.0-30.9,adult Start: 03-01-2024 End: 03-01-2024 ambulatory [facility] Start: 02-19-2024 End: 02-19-2024 Emergency department patient visit LORI Vallejo Fan [facility] Start: 02-18-2024 End: 02-18-2024 ambulatory Mica Car Facility:[facility] Start: 02-14-2024 End: 02-14-2024 ambulatory Mica Car Facility:[facility] Start: 01-31-2024 End: 01-31-2024 ambulatory Anna Sr Facility:[facility] Start: 01-24-2024 End: 01-24-2024 Emergency department patient visit BOBO Yip [facility] Start: 01-17-2024 End: 01-17-2024 Office outpatient visit 25 minutes Blanca Alonso MD Work Phone: [facility] Comment on above: Other atopic dermati tis (Primary Dx); Seborrheic keratosis; Lentigines; History of SCC (squamous cell carcinoma) of skin Start: 01-17-2024 End: 01-17-2024 ambulatory BLANCA ALONSO Not Available Start: 12-27-2023 End: 12-27-2023 ambulatory Mica Car Facility:[facility] Start: 12-14-2023 End: 12-14-2023 Bamboo flowsheet Dank Robert DO Work Phone: [facility] [employer] [address] Start: 12-14-2023 End: 12-14-2023 Bamboo flowsheet Dank Robert DO Work Phone: [facility] [employer] [address] Start: 12-14-2023 End: 12-14-2023 Office outpatient visit 25 minutes Dank Robert DO Work Phone: [facility] [employer] [address] Comment on above: VIRGILIO (obstructive sle ep apnea) (Primary Dx); Hypersomnia; PLMD (periodic limb movement disorder); Obesity due to excess calories, unspecified classification, unspecified whether serious comorbidity present; Snoring Start: 12-14-2023 End: 12-14-2023 ambulatory DANK JONES Not Available Start: 12-09-2023 End: 12-09-2023 ambulatory Varghese Caal Facility:[facility] Start: 11-12-2023 End: 11-12-2023 ambulatory Mica Car Facility:[facility] Start: 10-14-2023 End: 10-14-2023 Emergency department patient visit Vini VallejoAnisa Quinteros Facility:[facility] Start: 10-14-2023 ambulatory Barb Loza Fa cility:[facility] Start: 08-31-2023 End: 08-31-2023 ambulatory BLANCA A PETITTI Not Available Start: 08-25-2023 End: 08-25-2023 Office outpatient visit 25 minutes Varghese Caal MD Work Phone: [facility] Comment on above: Essential hypertensi on (Primary Dx); Sick sinus syndrome (Multi); Mixed hyperlipidemia; Paroxysmal atrial fibrillation (Multi); Dilated cardiomyopathy (Multi); Pacemaker; BMI 33.0-33.9,adult Start: 08-25-2023 End: 08-25-2023 ambulatory [facility]ulatory Start: 08-10-2023 End: 08-10-2023 ambulatory BLANCA A PETITTI Not Available Start: 06-16-2023 End: 06-16-2023 ambulatory NAPOLEON TA Facility:[facility] Start: 05-07-2023 End: 05-07-2023 ambulatory Mica Car Facility: [facility] Start: 03-19-2023 End: 03-19-2023 ambulatory BLANCA PETITTI Not Available Start: 03-05-2023 End: 03-05-2023 ambulatory BLANCA A PETITTI Not Available Start: 02-10-2023 End: 02-10-2023 Office outpatient visit 25 minutes Varghese Caal MD Work Phone: [facility] Comment on above: Sick sinus syndrome (CMS/HCC) (Primary Dx); Mobitz type II atrioventricular block; Pacemaker; Essential hypertension; Dilated cardiomyopathy (CMS/HCC); Paroxysmal atrial fibrillation (CMS/HCC) Start: 10-22-[address] Andrea Espinoza Facility: Start: 07-01-2022 Office outpatient vi sit 25 minutes [facility] 600 [facility] Work Phone: Start: 07-01-[address] Varghese Caal II Facility: Start: 05-28-2022 End: 05-28-[address] TRINO Lange Facility:[facility] Start: 05-14-2022 End: 05-15-2022 ambulatory MARIXA ROY Facility:[facility] Start: 04-23-[address] Andrea sEpinoza Facility: Start: 12-31-2021 Rx Renewal Andrea Espinoza Work Phone: [facility] 250 DO Work Phone: Start: 12-16-2021 Office outpatient vi sit 25 minutes Andrea Espinoza Work Phone: [facility] 600 DO Work Phone: Start: 12-16-[address] Varghese Caal II Facility: Start: 01-22-2021 Office outpatient vi sit 25 minutes Andrea Espinoza Work Phone: [facility] 250 DO Work Phone: Procedures Date Procedure Procedure Detail Performing Clinician Start: 06-29-2024 Plain chest X-ray Edi Medina MD Work Phone: Start: 05-25-2024 Plain chest X-ray Edi Medina MD Work Phone: Start: 05-23-2024 Radionuclide myocard ial perfusion stress study Lori Medina MD Work Phone: Start: 05-22-2024 Methicillin resistan t Staphylococcus aureus culture Lori Medina MD Work Phone: Start: 05-20-2024 Aerobic microbial culture Lori Medina MD Work Phone: Start: 05-20-2024 Gram stain microscopy D romulo Medina MD Work Phone: Start: 05-20-2024 Screening for occult blood in feces Lori Medina MD Work Phone: Start: 05-20-2024 CT of chest without contrast Lori Medina MD Work Phone: Start: 05-20-2024 Plain chest X-ray Dougl as Carol SANDHU Work Phone: Start: 05-18-2024 Urine culture Lori urbano MD Work Phone: Start: 05-12-2024 Plain chest X-ray Dougl as Carol SANDHU Work Phone: Start: 05-09-2024 Plain chest X-ray Dougl as Carol SANDHU Work Phone: Start: 03-28-2024 Urine culture Lori urbano MD Work Phone: Start: 03-11-2024 Urine culture [...] DTaP/Tdap/Td Vaccines (2 - Td or Tdap) [facility] Start: 05-11-2025 Echocardiography [facility]ogram [facility] Start: 01-25-2025 End: 01-25-2025 Patient encounter procedure 01/25/2025 1:05 PM EST Office Visit [facility] [address] [place] [address] Blanca Alonso MD [address] [place] [address] [facility] Start: 12-12-2024 End: 12-12-2024 Patient encounter procedure 12/12/2024 1:00 PM EDT Office Visit [facility] [address] [place] [id number] Rox Cervantes NP [address] [place], [place] [facility] [address] Start: 11-28-2024 Glaucoma screening Diabetes: R etinopathy Screening [facility] Start: 11-07-2024 End: 11-07-2024 Patient encounter procedure 11/07/2024 10:30 AM EDT Office Visit [place] [address] [place] [address] Osvaldo Dickinson MD [address] [facility] [address] [place] [address] [facility] Start: 06-15-2024 End: 06-15-2025 Basic metabolic 2000 panel - Serum or Plasma Basic Metabolic Panel Lab Routine Paroxysmal atrial fibrillation (Multi) Essential hypertension Stage 4 chronic kidney disease (Multi) Nonischemic cardiomyopathy (Multi) Expected: 06/15/2024 (Approximate), Expires: 06/15/2025 [facility] Service Area Work Phone: Comment on above: Expected: 06/15/2024 (Approximate), Expires: 06/15/2025 Start: 05-27-2024 [facility] Start: 05-27-2024 Ascorbic acid measurement [facility] Start: 05-20-2024 Administration of prophylactic treatment [facility] Start: 05-20-2024 Consultation [facility] Start: 05-20-2024 Hospital admission [facility] Start: 05-18-2024 Urine culture [facility] Start: 05-18-2024 Bacteria identified in Urine by Culture Urine Culture [facility] Start: 05-13-2024 [facility] Start: 05-12-2024 Administration of prophylactic treatment [facility] Start: 05-09-2024 Hospital admission [facility] Start: 05-09-2024 Referral to tandem mill sticker [facility] Start: 03-28-2024 Urine culture [facility] Start: 03-28-2024 Bacteria identified in Urine by Culture Urine Culture [facility] Start: 03-01-2024 End: 03-01-2024 Patient encounter procedure 03/01/2024 11:00 AM EST Office Visit [address] [place] [address] Osvaldo Dickinson MD [address] [facility] [address] [place] [address] [facility] Start: 01-17-2024 End: 01-17-2024 Patient encounter procedure 01/17/2024 3:15 PM EDT Office Visit [facility] [address] [place] [address] Blanca Alonso MD [address] [place] [address] [facility] Start: 12-14-2023 End: 12-14-2023 Patient encounter procedure 12/14/2023 1:30 PM EDT Office Visit [facility] [place] [address] [place] [address] Dank Jones DO [facility] [address] [place] [address] Arrived [facility] [address] Comment on above: Arrived Start: 12-01-2023 Glaucoma screening Diabetes: R etinopathy Screening [facility] Start: 08-25-2023 End: 08-25-2023 Patient encounter procedure 08/25/2023 11:40 AM EDT Office Visit [facility] [address] [place] [address] Varghese Caal MD [address] [facility] [address] [place] [address] [facility] Start: 06-05-2023 COVID-19 Vaccine () COVID-19 Vaccine ( season) [facility] Start: 04-01-2023 COVID-19 Vaccine (6 - Moderna series) COVID-19 Vaccine (6 - Moderna series) [facility] Start: 02-10-2023 FUV, Provider: Varghese Caal, Status: Pen, Time: 11:30 AM FUV, Provider: Varghese Caal, Status: Pen, Time: 11:30 AM [facility] 600 DO Work Phone: Start: 07-01-2022 FUV, Provider: Varghese Caal, Status: Pen, Time: 10:40 AM FUV, Provider: Varghese Caal, Status: Pen, Time: 10:40 AM [facility] 600 DO Work Phone: Start: 09-10-2021 FUV, Provider: Varghese Caal, Status: Pen, Time: 2:30 PM FUV, Provider: Varghese Caal, Status: Pen, Time: 2:30 PM [facility] 250 DO Work Phone: Start: 2020 RSV High Risk: (Elde rly (60+) or Population) (1 - 1-dose 75+ series) RSV High Risk: (Elderly (60+) or Population) (1 - 1-dose 75+ series) [facility] Start: 05-09-2020 Echocardiography Echocardiogram [facility] Start: 2005 RSV patient s and/or patients aged 60+ years (1 - 1-dose 60+ series) RSV patients and/or patients aged 60+ years (1 - 1-dose 60+ series) [facility] Start: 11-26-1995 Zoster Vaccines (1 of 2) Zoste r Vaccines (1 of 2) [facility] Start: 1964 Urine screening for protein Diabetes: Urine Protein Screening [facility] Start: 11-26-1963 Hepatitis C screening Hepatitis C Sc reening [facility] Start: 11-26-1955 Diabetic foot examination Diabetes: Foot Exam [facility] Start: 11-26-1955 Glaucoma screening Diabetes: R etinopathy Screening [facility] Start: 1945 Creatinine measurement Creatinine Le sarah [facility] Start: 1945 Hemoglobin A1c measurement Jennifer betes: Hemoglobin A1C [facility] Start: 1945 Lipid panel Lipid Panel [facility] Start: 1945 Medicare Annual Well ness Visit Medicare Annual Wellness Visit (AWV) [facility] Start: 1945 Potassium measurement Potassium Leve l [facility] Start: 1945 Urine screening for protein Diabetes: Urine Protein Screening [facility] Patient referral [facility] Work Phone: XR Chest 2 Views [facility] Immunizations Immunization Date Immunization Notes Care Provider Severo sneed 02-14-2024 influenza, seasonal, injectable Osvaldo Dickinson MD Work Phone: [facility] Work Phone: 01-14-2022 Fluad Quadrivalent 0 .5 ML Intramuscular Prefilled Syringe Andrea Espinoza Work Phone: [facility] 358 DO Work Phone: 01-14-2022 Pfizer COVID-19 Vac Bivalent 30 MCG/0.3ML Intramuscular Suspension Andrea Espinoza Work Phone: [facility] 600 DO Work Phone: 09-03-2021 pneumococcal conjuga te vaccine, 13 valent Dank Jones DO Work Phone: [facility] 02-15-2021 Moderna COVID-19 Vaccine 100 MCG/0.5ML Intramuscular Suspension Andrea Vasquezrozulay Work Phone: [facility] 600 DO Work Phone: 01-30-2021 influenza virus vaccine, unspecified formulation Andrea Patel DeGroh Work Phone: [facility] 600 DO Work Phone: 11-28-2020 influenza, high dose seasonal, preservative-free Andrea Patel DeGroh Work Phone: [facility] 250 DO Work Phone: Comment on above: Series: 06-20-2020 Moderna COVID-19 Vaccine 100 MCG/0.5ML Intramuscular Suspension Andrea Vasquezroh Work Phone: [facility] 600 DO Work Phone: 05-20-2020 Moderna COVID-19 Vaccine 100 MCG/0.5ML Intramuscular Suspension Andrea Vasquezrozulay Work Phone: [facility] 250 DO Work Phone: Comment on above: Series: 04-25-2020 Moderna COVID-19 Vaccine 100 MCG/0.5ML Intramuscular Suspension Andrea Vasquezrozulay Work Phone: [facility] 250 DO Work Phone: Comment on above: Series: 12-21-2019 influenza virus vaccine, unspecified formulation Andrea Vasquezrozulay Work Phone: [facility] 600 DO Work Phone: 12-20-2018 influenza, high dose seasonal, preservative-free Andrea L DeGroh Work Phone: [facility] 02-19-2018 influenza virus vaccine, unspecified formulation Andrea L DeGroh Work Phone: [facility] 600 DO Work Phone: 02-19-2018 pneumococcal polysaccharide vaccine, 23 valent [facility] Work Phone: Comment on above: Series: 02-19-2018 pneumococcal vaccine , unspecified formulation Andrea Espinoza Work Phone: [facility] 02-18-2017 Influenza, injectabl e, Madin [place] [facility], preservative free, quadrivalent Andrea Espinoza Work Phone: [facility] 600 DO Work Phone: 11-24-2016 influenza, high dose seasonal, preservative-free Andrea Espinoza Work Phone: [facility] 600 DO Work Phone: 12-21-2015 pneumococcal conjuga te vaccine, 13 valent Andrea Espinoza Work Phone: [facility] 250 DO Work Phone: Comment on above: Series: Payers Date Payer Category Payer Self-pay 2022 Medicare [id number] 2022 Department of [facility] e ( and others) [id number] 2022 () [id number] 2022 For Life (TFL) F OR LIFE [id number]. [id number] 2022 [employer] [place] [employer] ( and others) [id number] 2010 Medicare [id number]. 1.13.647. [id number] 1959 [employer] of [employer] [employer] ( and others) [id number] 1959 Medicare [id number] 1945 Unknown [id number] 2.16.840.1.961633.3.579. 2.593 1945 Unknown [id number] 2.16840.1.523521.3.579. 2.593 1945 Unknown [id number] 2.16840.1.956315.3.579. 2.356 1945 Unknown [id number] 2.16840.1.115430.3.579. 2.356 1945 Unknown [id number] 2.16.840.1.854228.3.579. 2.356 1945 Unknown [id number] 2.16.840.1.352855.3.579. 2.356 1945 Unknown [id number] 2.16.840.1.695193.3.579. 2.1259 1945 Unknown [id number] 2.16.840.1.879317.3.579. 2.1259 1945 Unknown [id number] 2.16.840.1.750311.3.579. 2.1259 1945 Unknown [id number] 2.16.840.1.170778.3.579. 2.125 1945 Unknown [id number] 2.16.840.1.233705.3.579. 2.1259 1945 Unknown [id number] 2.16.840.1.754915.3.579. 2.125 1945 Unknown [id number] 2.16.840.1.110882.3.579. 2.1286 1945 Unknown [id number] 2.16.840.1.321791.3.579. 2.128 1945 Unknown [id number] 2.16.840.1.944346.3.579. 2.72 1945 Unknown [id number] 2.16.840.1.109251.3.579. 2.72 1945 Unknown [id number] 2.16.840.1.902211.3.579. 2.72 1945 Unknown [id number] 2.16.840.1.684356.3.579. 2. 1945 Unknown [id number] 2.16.840.1.426480.3.579. 2.72 1945 Unknown [id number] 2.16.840.1.444405.3.579. 2.72 1945 Unknown [id number] 2.16.840.1.445707.3.579. 2.72 1945 Unknown [id number] 2.16.840.1.098576.3.579. 2.72 1945 Unknown [id number] 2.16.840.1.188970.3.579. 2.72 1945 Unknown [id number] 2.16.840.1.955096.3.579. 2.727 1946 Unknown [id number] 2.16.840.1.587653.3.579. 2. 1945 Unknown [id number] 2.16.840.1.495940.3.579. 2 1945 Unknown [id number] 2.16.840.1.044016.3.579. 2. 1945 Unknown [id number] 2.16.840.1.071847.3.579. 2. 1945 Unknown [id number] 2.16.840.1.485537.3.579. 2 1945 Unknown [id number] 2.16.840.1.301023.3.579. 2 1945 Unknown [id number] 2.840.1.715013.3.579. 2 1945 Unknown [id number] 2.16.840.1.375549.3.579. 2 1945 Unknown [id number] 2.16.840.1.411154.3.579. 2 1945 Unknown [id number] 2.840.1.209606.3.579. 2 1945 Unknown [id number] 2.840.1.497636.3.579. 2. 1945 Unknown [id number] 2.16.840.1.176096.3.579. 2 1945 Unknown [id number] 2.16.840.1.913784.3.579. 2.1243 1945 Unknown [id number] 2.16.840.1.824948.3.579. 2.1243 1945 Unknown [id number] 2.16840.1.708616.3.579. 2.1243 1945 Unknown [id number] 2.16.840.1.298058.3.579. 2.727 1945 Unknown [id number] 2.16.840.1.468171.3.579. 2.727 1945 Unknown [id number] 2.16.840.1.615610.3.579. 2.727 1945 Unknown [id number] 2.16.840.1.634556.3.579. 2.727 1945 Unknown [id number] 2.16.840.1.880247.3.579. 2.727 1945 Unknown [id number] 2.16.840.1.738930.3.579. 2.727 1945 Unknown [id number] 2.16.840.1.085646.3.579. 2.727 1945 Unknown [id number] 2.16.840.1.133796.3.579. 2.727 Unknown Unknown [id number] 2.16.840.1.188443.3.579. 2.531 Unknown [id number] 2.16.840.1.693958.3.579. 2.531 Unknown [id number] 2.16.840.1.169113.3.579. 2.531 Unknown [id number] 2.16.840.1.603046.3.579. 2.531 Unknown [id number] 2.16.840.1.761125.3.579. 2.531 Unknown [id number] 2.16.840.1.375816.3.579. 2.531 Unknown [id number] 2.16.840.1.371448.3.579. 2.531 Social History Date Type Detail Facility Start: 02-10-2023 End: 06-15-2024 No illicit drug use No illicit drug use [place] [address] DO Work Phone: Comment on above: quit , 1 PPD; Start: 02-10-2023 End: 05-20-2024 Tobacco smoking status NHIS Ex-smoker [facility] Work Phone: End: 03-22-1992 History of tobacco use Current smoker [facility] Work Phone: End: 03-22-1992 History of tobacco use Cigarette Smoker [facility] Work Phone: Start: 02-10-2023 End: 08-25-2023 Tobacco use and exposure Smokeless tobacco non-user [facility] Work Phone: Start: 02-10-2023 End: 06-15-2024 Alcohol intake Lifetime non-drinker (finding) [facility] Work Phone: Start: 02-10-2023 End: 06-15-2024 Tobacco use panel [facility] Work Phone: Start: 1945 Sex Assigned At Not on file U [facility] Work Phone: Start: 01-31-2023 End: 06-15-2024 Exposure to SARS-CoV-2 (event) Not sure [facility] Start: 10-11-2022 [facility] Tobacco smoking stat us [facility] Unknown if ever smoked [facility] Work Phone: Start: 03-30-2024 Sex Patient sex un known (finding) [facility] Start: 1945 Sex Assigned At Male F [facility] Start: 05-13-2024 End: 06-30-2024 Sex Male (finding) [facility] Start: 05-11-2024 End: 05-24-2024 SDOH Follow up SDOH Follow up [facility] Work Phone: Goals Date Patient Goal Desired Activity /State Functional Status Date Assessment Result Facility 05-27-2024 Functional status Patient is Pro gressing Toward Baseline [facility] Work Phone: 05-13-2024 Functional status Patient is Pro gressing Toward Baseline [facility] Work Phone: Mental Status Date Assessment Result Facility 05-27-2024 Cognitive function Cognitive Sta tus Patient at Baseline [facility] Work Phone: 05-13-2024 Cognitive function Cognitive Sta tus Patient at Baseline [facility] Work Phone: Clinical Notes 05-14-2022 to 07-24-2024 Osvaldo Dickinson MD - 06/15/2024 2:30 PM EDTPatient Instructions Note Date & Type Note Facility 07-24-2024 Note Patient Education [facility] [place], [place] Post-Operative Instructions for UroLift After your procedure it is normal to have: Gross Hematuria (blood in the urine) You may even notice blood clots in your urine. A small amount of blood may apppear to be a lot of blood in your urine as it is diluted. Restarting your blood thinner, increased activity and heavy lifting could increase the amount of bleeding. The bleeding may be sporadic (off and on) over the next 2-3 weeks. Ensure you are hydrating to assist in flushing the blood to prevent voiding complications. In the event you are unable to void, please reach out to our office. If the office is closed, you will need to report to the local emergency room. Blood in your semen and stool may be present. The blood in your semen is not harmful to you or your partner. This will resolve with time. Frequency/urgency/burning with urination is very common. This is due to irritation from your procedure. These symptoms do not indicate that your procedure was unsuccessful or that there is an infection. Ensure you are hydrating! You may try AZO over the counter as needed for urinary discomfort. Pain/discomfort are normal as well. There has been a non-narcotic prescription sent to your pharmacy. You may alternate this prescription with over the counter Ibuprofen. Your pain and discomfort should improve within a few days. When do I need to call the office? We ask that you reach out to the office if you experience a temperature of 100.4 ??? F or higher, excessive urinary bleeding, symptoms of infection, inability to urinate or uncontrolled pain. If the office is closed, you may need to present to the local emergency department. Gomez catheter If you have a catheter and will remove it at home, you may do so the next day if urine is clear and no longer red/pink in color. If urine is red, wait until clear to remove the catheter. See attached instructions for removal. Postop UroLift Instructions ??? Complete your antibiotic as instructed. ??? Remain on all your urinary medication until follow up. ??? Take your pain madications and AZO as needed. ??? Resume any blood thinners 48 hour post procedure. ??? Continue to hydrate! ??? Minimize your activity for 72-96 hours post procedure. ??? If you are prescribed Oxybutynin for bladder spasms, you may take this medication every 8 hours as needed. This medication may cause dry mouth/eyes and constipation. Taking an over the counter stool softener and drinking plenty of water will help with side effects. Gomez Catheter Removal Your healthcare provider has instructed you to remove your Gomez catheter. This is a thin, flexible tube that allows urine to drain out of your bladder and into a bag. It is important to properly remove your catheter to prevent infection and other complications. If you have any questions about removing the Gomez catheter, ask your healthcare provider before trying to remove it. Otherwise, follow the instructions on this sheet. Gomez Catheter The Gomez catheter is held in place by a small balloon that is filled with water. To remove the catheter, you must first drain the water from the balloon. This is done using a syringe and the balloon port. This is the opening in the catheter that is not attached to the bag. It allows you to get to the balloon. Instructions for Removing the Catheter Follow the directions closely. Note: If the catheter does not come out with gentle pulling, stop and call your healthcare provider right away. ??? Empty the bag of urine if needed. ??? Wash your hands with soap and warm water. Dry them well. ??? Gather your supplies. This includes a syringe that was given to you by your healthcare provider, a wastebasket, and a towel. ??? Put the syringe into the balloon port on the catheter. The syringe fits tightly into the port with a firm push and twist motion. ??? Wait as the water from the balloon empties into the syringe. Depending on how large the balloon is, you may need to repeat this process several times until all of the water is out of the balloon. ??? Once the balloon is emptied, gently pull out the catheter. ??? Put the used catheter in the wastebasket. Throw away the syringe. ??? Use the towel to wipe up any spilled water or urine if needed. ??? Wash your hands again. When to Call Your Healthcare Provider Call the healthcare provider right away if: ??? You have a fever of 100.4 ???F (38???C) or higher, or as directed by your healthcare provider. ??? You have questions about removing the catheter. ??? The catheter does not come out with gentle pulling. ??? You cannot urinate within 8 hours of removing the catheter. ??? Your belly (abdomen) is painful or bloated ??? You have burning pain with urination that lasts for 24 hours. ??? You see a lot of blood in your urine. Light bleeding for 24 hours (more content not included)... [facility] 06-26-2024 Procedure note [facility] enter 06-15-2024 History of Present illness Narrative Chief Complaint Patient presents with Follow-up [facility] discharge for heart failure Subjective Leighton Arciniega is a 78 y.o. male HPI Patient is here for follow-up where he presented with congestive heart failure. And drop in his LVEF. He underwent cardiac workup. Unfortunately due to advanced kidney disease cath was not done and the patient up undergoing stress test which showed no evidence of myocardial ischemia and LV systolic dysfunction. Patient report improvement. The patient had a history of permanent pacemaker for many years. Timeframe does not fit the classic RV paced induced cardiomyopathy. Patient currently penitentiary. He report improvement of his symptoms. He denies any edema. He still on oxygen therapy. Assessment 1. Recent presentation with acute systolic heart failure attributed to nonischemic cardiomyopathy. Less likely to be RV pacing cardiomyopathy considering he had pacemaker for many years. Currently compensated. His stress test showed no evidence of myocardial ischemia 2. Sick sinus syndrome status post permanent pacemaker implantation 7 years ago with appropriate device function 3. Essential hypertension 4. Paroxysmal atrial fibrillation on anticoagulation to mitigate thromboembolic risk 5. Mixed hyperlipidemia 6. Long-term anticoagulation with Eliquis 7 down to 27. Plan 1. Patient on good medical therapy for heart failure 2. Risk, benefit and alternative anticoagulation reviewed with patient at length he understood and agreed 3. Patient is scheduled to have a device check in the near future. I think he is approaching replacement time. If his EF does not improve the patient will be candidate for BiV AICD 4. I reviewed his recent hospitalization record 5. I will see him back in 4 months with an EKG Review of Systems Respiratory: Positive for shortness of breath. All other systems reviewed and are negative. Vitals: 06/15/24 1444 BP: 100/60 BP Location: Right arm Patient Position: Sitting Pulse: 72 Weight: 85.8 kg (189 lb 3.2 oz) Height: 1.778 m (5' 10 ) Objective [...] Thought content normal. Judgment: Judgment normal. Allergies Enalapril, Metoprolol, and [place] Current Medications Current Outpatient Medications: acetaminophen (TylenoL) [...] by mouth once daily., Disp: , Rfl: dapagliflozin propanediol (Farxiga) 10 mg, Take 0.5 tablets (5 mg) by mouth once every 24 hours., Disp: , Rfl: finasteride (Proscar) 5 mg tablet, Take 1 tablet (5 mg) by mouth once daily. Do not crush, chew, or split., Disp: , Rfl: furosemide (Lasix) 20 mg tablet, Take 1 tablet (20 mg) by mouth 3 times daily (morning, midday, late afternoon)., Disp: , Rfl: insulin asp prt-insulin aspart (NovoLOG Mix 70-30 U-100 Insuln) 100 unit/mL (70-30) injection, Inject under the skin 2 times daily (morning and late afternoon). Take as directed per insulin instructions., Disp: , Rfl: insulin glargine (Lantus U-100 Insulin) 100 unit/mL injection, Inject under the skin., Disp: , Rfl: linaGLIPtin (Tradjenta) 5 mg tablet, Take 1 tablet (5 mg) by mouth once daily., Disp: , Rfl: magnesium oxide (Mag-Ox) 400 mg tablet, Take 1 tablet (400 mg) by mouth once daily., Disp: , Rfl: melatonin 5 mg tablet,chewable, Chew., Disp: , Rfl: multivitamin tablet, Take 1 tablet by mouth once daily., Disp: , Rfl: pantoprazole (ProtoNix) 40 mg EC tablet, Take 1 tablet (40 mg) by mouth once daily in the morning. Take before meals. Do not crush, chew, or split., Disp: , Rfl: potassium chloride CR 10 mEq ER tablet, Take 1 tablet (10 mEq) by mouth once daily. Do not crush, chew, or split., Disp: , Rfl: predniSONE (Deltasone) 10 mg tablet, Take 1 tablet (10 mg) by mouth once daily. 7DAYS, Disp: , Rfl: predniSONE (Deltasone) 10 mg tablet, Take 1 tablet (10 mg) by mouth 3 times a day. 4DAYS, Disp: , Rfl: psyllium (Metamucil) 3.4 gram packet, Take 1 packet by mouth once daily., Disp: , Rfl: semaglutide (Ozempic) 1 mg/dose (2 mg/1.5 mL) pen injector, Inject 1 mg under the skin 1 (one) time per week., Disp: , Rfl: simvastatin (Zocor) 20 mg tablet, Take 0.5 tablets (10 mg) by mouth once daily at bedtime., Disp: , Rfl: spironolactone (Aldactone) 25 mg tablet, Take 1 tablet (25 mg) by mouth once daily. (Patient taking differently: Take 2 tablets (50 mg) by mouth once daily.), Disp: , Rfl: terazosin (Hytrin) 10 mg capsule, Take 1 capsule (10 mg) by mouth once daily., Disp: , Rfl: valsartan (Diovan) 40 mg tablet, Take 1 tablet (40 mg) by mouth 2 times a day., Disp: , Rfl: Assessment/Plan 1. Nonischemic cardiomyopathy (Multi) Basic Metabolic Panel Basic Metabolic Panel 2. Sick sinus syndrome (Multi) Follow Up In Cardiology 3. Paroxysmal atrial fibrillation (Multi) Basic Metabolic Panel Basic Metabolic Panel 4. Pacemaker 5. Mixed hyperlipidemia 6. Essential hypertension Basic Metabolic Panel Basic Metabolic Panel 7. Stage 4 chronic kidney disease (Multi) Basic Metabolic Panel Basic Metabolic Panel 8. Non-smoker 9. BMI 27.0-27.9,adult 10. group home resident Scribe Attestation By signing my name below, [...] discussion and plan. documented in this encounter [facility] Work Phone: 06-15-2024 Instructions Betzaida Denney LPN - 06/15/2024 2:30 PM EDT Please bring all medicines, vitamins, and herbal supplements with you when you come to the office. Prescriptions will not be filled unless you are compliant with your follow up appointments or have a follow up appointment scheduled as per instruction of your physician. Refills should be requested at the time of your visit. BMI was above normal measurement. Current weight: 85.8 kg (189 lb 3.2 oz) Weight change since last visit (-) denotes wt loss -20.8 lbs Weight loss needed to achieve BMI 25: 15.3 Lbs Weight loss needed to achieve BMI 30: -19.4 Lbs Provided instructions on dietary changes. Lab work Follow up 4-5 months with ekg documented in this encounter [facility] Work Phone: 05-26-2024 Progress note Note Date/Time May 26, 2024 1:15pm [facility] [address] [place] [address] Hospitalist Progress Note Signed Patient: Leighton Arciniega MR#: [id number] : 1945 Acct:[id number] Age/Sex: 78 / M Adm Date: 5 Loc: Room: [address] [place] [address] Type: ADM IN Attending Dr: Richard Zamora DO Copies to: ~ Date of Service: 05/26/2024 Subjective Subjective Narrative: Pt observed sitting up in chair eating breakfast. He is feeling well today. He admits he is still coughing and that the sputum has a pinkish color. Otherwise, he has no complaints, says he is breathing well. We discussed with patient the importance of standing on a scale to get weighed, and if he gains 1 kg he needs to increase his lasix dose. Pt will be going to a SNF and these instructions will be given to them as well. Exam: GENERAL: alert, oriented, appears stated age, comfortable HEENT: NC/AT CARDIOVASCULAR: Regular rate and irregular rhythm, , symmetric palpable radial pulses RESPIRATORY: comfortable on 2L via NC, basilar rhonchi b/l ABDOMEN: Soft, non-tender, non-distended, normal bowel sounds EXTREMITIES: moving all extremities well. Well-perfused. +1 non-pitting edema SKIN: Intact, no rash, no trauma PSYCHIATRIC: appropriate mood and affect, cooperative Exam Physical Exam Vital Signs: Temp Pulse Resp BP Pulse Ox O2 Del Method O2 Flow Rate 97.7 F 70 16 120/66 94 L Nasal Cannula 2 05/26/24 07:25 05/26/24 07:25 05/26/24 07:25 05/26/24 07:25 05/26/24 07:25 05/26/24 08:00 05/26/24 08:00 FiO2 30 05/22/24 23:41 Objective Lab Results 05/26/24 05:49 05/26/24 05:49 Meds Allergies and Active Meds Allergies fosinopril Allergy (Verified 05/09/24 19:59) SOB metoprolol Allergy (Verified 05/09/24 19:59) Hypotension strawberry Allergy (Verified 05/09/24 19:59) Rash Active Meds: Active Medications Generic Name Dose Route Start Last Admin Trade Name Freq PRN Reason Stop Dose Admin Acetaminophen 650 mg 05/20/24 03:03 05/25/24 23:02 Acetaminophen 325 Mg Tablet PO 05/20/25 03:02 650 mg Q6HR PRN Administration Pain Scale 1 - 3 or fever Albuterol 2.5 mg 05/20/24 05:49 Albuterol Neb 2.5 Mg/3 Ml Vial.Neb INHALATION 05/20/25 05:48 Q4H PRN shortness of breath or wheezing Allopurinol 300 mg 05/20/24 09:00 05/26/24 09:04 Allopurinol 300 Mg Tablet PO 05/20/25 08:59 300 mg DAILY BRAYN Administration Apixaban 5 mg 05/20/24 09:00 05/26/24 09:05 Apixaban 5 Mg Tablet PO 05/20/25 08:59 5 mg BID BRYAN Administration Aspirin 81 mg 05/21/24 09:00 05/21/24 08:01 Aspirin 81 Mg Tablet. PO 05/21/25 08:59 81 mg Delacruz@0900 BRYAN Administration Atorvastatin Calcium 10 mg 05/21/24 21:00 05/25/24 21:21 Atorvastatin 10 Mg Tablet PO 05/21/25 20:59 10 mg QPM BRYAN Administration Calcium Carbonate 1 tab 05/22/24 14:00 05/26/24 09:04 Calcium Carbonate/Vitamin D3 500 Mg/200 Unit Tablet PO 05/22/25 13:59 1 tab DAILY BRYAN Administration Carvedilol 6.25 mg 05/20/24 08:00 05/26/24 09:05 Carvedilol 6.25 Mg Tablet PO 05/20/25 07:59 6.25 mg BID.WITH.MEALS BRYAN Administration Cyanocobalamin 1,000 mcg 05/23/24 09:00 05/26/24 09:05 Cyanocobalamin 1,000 Mcg Tablet PO 05/23/25 08:59 1,000 mcg DAILY BRYAN Administration Dapagliflozin 10 mg 05/25/24 09:00 05/26/24 09:04 Dapagliflozin 10 Mg Tablet PO 05/25/25 08:59 10 mg DAILY BRYAN Administration Dextrose 0 gm 05/20/24 03:54 Dextrose 50% In Water 25 Gm/50 Ml Syringe IV-PUSH 05/20/25 03:53 PRN PRN Hypoglycemia Doxycycline Hyclate 100 mg 05/20/24 21:00 05/26/24 09:04 Doxycycline Hyclate 100 Mg Tablet PO 100 mg BID BRYAN Administration Finasteride 5 mg 05/20/24 09:00 05/26/24 09:09 Finasteride 5 Mg Tablet PO 05/20/25 08:59 5 mg DAILY BRYAN Administration Furosemide 60 mg 05/25/24 08:00 05/26/24 09:05 Furosemide 20 Mg Tablet PO 05/25/25 07:59 60 mg DAILY.8A BRYAN Administration Glucose 0 gm 05/20/24 03:54 Dextrose 40% Gel 15 Gm Tube PO 05/20/25 03:53 PRN PRN Hypoglycemia Ceftriaxone Sodium 1 gm in 50 mls @ 100 mls/hr 05/20/24 13:00 05/25/24 12:49 Rocephin IV 100 mls/hr Q24H BRYAN Administration Insulin Aspart 0 units 05/20/24 08:00 05/26/24 09:07 Insulin Aspart 300 Units/3 Ml SUBCUT 05/20/25 07:59 Not Given TID.WM.HS BRYAN Protocol Insulin Aspart 0 units 05/22/24 17:00 05/26/24 09:05 Insulin Aspart 300 Units/3 Ml SUBCUT 05/22/25 16:59 11 units TID.WITH.MEALS BRYAN Administration Protocol Insulin Glargine 35 units 05/23/24 21:00 05/26/24 09:09 Insulin Glargine 300 Units/3 Ml Insuln.Pen SUBCUT 05/23/25 20:59 35 units BID BRYAN Administration Linagliptin 5 mg 05/24/24 08:00 05/26/24 09:05 Linagliptin 5 Mg Tablet PO 05/24/25 07:59 5 mg DAILY.WITH.BKFAST BRYAN Administration Magnesium Oxide 400 mg 05/23/24 09:00 05/26/24 09:04 Magnesium Oxide 400 Mg Tablet PO 05/23/25 08:59 400 mg DAILY BRYAN Administration Melatonin 5 mg 05/20/24 03:03 05/25/24 23:02 Melatonin 5 Mg Tablet PO 05/20/25 03:02 5 mg QHS PRN Administration Insomnia Multivitamins 1 tab 05/23/24 09:00 05/26/24 09:04 Multivitamin 1 Tab Tablet PO 05/23/25 08:59 1 tab DAILY BRYAN Administration Ondansetron HCl 4 mg 05/20/24 03:03 Ondansetron 4 Mg/2 Ml Vial IV-PUSH 05/20/25 03:02 Q8H PRN Nausea And Vomiting Pantoprazole Sodium 40 mg 05/20/24 09:00 05/26/24 09:05 Pantoprazole 40 Mg Tablet. PO 05/20/25 08:59 40 mg DAILY BRYAN Administration Potassium Chloride 10 meq 05/21/24 13:00 05/26/24 09:04 Potassium Chloride Er 10 Meq Tablet.Er PO 05/21/25 12:59 10 meq DAILY BRYAN Administration Prednisone 60 mg 05/26/24 09:00 05/26/24 09:04 Prednisone 10 Mg Tablet PO 06/11/24 08:59 60 mg DAILY BRYAN Administration Taper Sodium Chloride 10 ml 05/20/24 04:57 05/23/24 10:34 Sodium Chloride 0.9 % 10 Ml Syringe IV-PUSH 05/20/25 04:56 10 ml PRN PRN Administration Flush Sodium Chloride 0 ml 05/22/24 09:23 Sodium Chloride 0.9 % 10 Ml Syringe IV-PUSH 05/22/25 09:22 PRN PRN Flush Spironolactone 50 mg 05/25/24 09:00 05/26/24 09:05 Spironolactone 50 Mg Tablet PO 05/25/25 08:59 50 mg DAILY BRYAN Administration Terazosin HCl 10 mg 05/20/24 22:00 05/25/24 21:20 Terazosin 5 Mg Capsule PO 05/20/25 21:59 10 mg HS BRYAN Administration Valsartan 40 mg 05/20/24 09:45 05/26/24 09:04 Valsartan 40 Mg Tablet PO 05/20/25 09:44 40 mg BID BRYAN Administration A&P - Hospitalist Assessment/Plan (1) Acute HFrEF (heart failure with reduced ejection fraction): (2) Chronic indwelling Gomez catheter: (3) Acute on chronic hypoxic respiratory failure: (4) Diabetes: (5) Hypomagnesemia: (6) Chronic kidney disease: (7) Interstitial lung disease: (8) Obstructive sleep apnea: (9) Iron deficiency anemia: Plan 1. Acute on chronic HFrEF EF from echo in March 20-25%, repeat echo EF 35%. Pt not previously optimized on GDMTA due to CKD, SGLTi added will continue switched to oral lasix, seems to be tolerating well Continue valsartan cardiology consult appreciated 2. Acute respiratory failure with hypoxia-currently on 2L via NC continue high flow, wean as tolerated Pulmonology following, ANCA panel negative, cxray shows marked improvement can begin to taper steroids and discontinue. discontinue ceftriaxone and doxycycline, 5 days completed 3. Chronic afib Continue Coreg and Eliquis 4. Anemia Anemia of chronic disease, elevated ESR and ferritin with low iron, and Anemia of Iron deficiency. Iron infusion done 05/22, 05/23, 05/24, and completed on 05/25. b12 and folate nl stool sample negative for occult blood 5. CKD stage III Cr baseline is 1.6 with good response to diuresis, cr optimal (05/26) at 1.44 BMP daily 6. DM2 with hyperglycemia due to corticosteroids hemoglobin A1c 7.5 long acting and short acting adjusted, will adjust daily. Carb coverage 1:5 7. Hypomagnesemia (05/22) 1.6 goal Mg>2.0 8. Obstructive sleep apnea. Patient has demonstrated optimal compliance is extremely oriental orthodox about using his sleep apnea machine. Code: DNRCCA with intubation DVT px: as above Diet: heart healthy 2 grams sodium. +++ +++ I saw and personally examined this patient on the date of the encounter. I agree with the documentation as written. I personally discussed the case and formulated the plan of care in conjunction with medical student who began this note, and made adjustments to this document at the time of my signature. - - - Richard Zamora DO. Internal Medicine + Hospitalist attending physician. Documented By: Richard Zamora DO [id number] Signed By: <Electronically signed by Richard Zamora DO> 05/26/24 [id number] [facility] Work Phone: [phone]) [phone] [place] [address] Hospitalist Progress Note Signed Patient: Leighton Arciniega MR#: [id number] : 1945 Acct:[id number] Age/Sex: 78 / M Adm Date: 5 Loc: Room: [address] [place] [address] Type: ADM IN Attending Dr: Richard Zamora DO Copies to: ~ Date of Service: 05/26/2024 Subjective Subjective Narrative: Pt observed sitting up in chair eating breakfast. He is feeling well today. He admits he is still coughing and that the sputum has a pinkish color. Otherwise, he has no complaints, says he is breathing well. We discussed with patient the importance of standing on a scale to get weighed, and if he gains 1 kg he needs to increase his lasix dose. Pt will be going to a SNF and these instructions willbe given to them as well. Exam: GENERAL: alert, oriented, appears stated age, comfortable HEENT: NC/AT CARDIOVASCULAR: Regular rate and irregular rhythm, , symmetric palpable radial pulses RESPIRATORY: comfortable on 2L via NC, basilar rhonchi b/l ABDOMEN: Soft, non-tender, non-distended, normal bowel sounds EXTREMITIES: moving all extremities well. Well-perfused. +1 non-pitting edema SKIN: Intact, no rash, no trauma PSYCHIATRIC: appropriate mood and affect, cooperative Exam Physical Exam Vital Signs: Temp Pulse Resp BP Pulse Ox O2 Del Method O2 Flow Rate 97.7 F 70 16 120/66 94 L Nasal Cannula 2 05/26/24 07:25 05/26/24 07:25 05/26/24 07:25 05/26/24 07:25 05/26/24 07:25 05/26/24 08:00 05/26/24 08:00 FiO2 30 05/22/24 23:41 Objective Lab Results 05/26/24 05:49 05/26/24 05:49 Meds Allergies and Active Meds Allergies fosinopril Allergy (Verified 05/09/24 19:59) SOB metoprolol Allergy (Verified 05/09/24 19:59) Hypotension strawberry Allergy (Verified 05/09/24 19:59) Rash Active Meds: Active Medications Generic Name Dose Route Start Last Admin Trade Name Freq PRN Reason Stop Dose Admin Acetaminophen 650 mg 05/20/24 03:03 05/25/24 23:02 Acetaminophen 325 Mg Tablet PO 05/20/25 03:02 650 mg Q6HR PRN Administration Pain Scale 1 - 3 or fever Albuterol 2.5 mg 05/20/24 05:49 Albuterol Neb 2.5 Mg/3 Ml Vial.Neb INHALATION 05/20/25 05:48 Q4H PRN shortness of breath or wheezing Allopurinol 300 mg 05/20/24 09:00 05/26/24 09:04 Allopurinol 300 Mg Tablet PO 05/20/25 08:59 300 mg DAILY BRYAN Administration Apixaban 5 mg 05/20/24 09:00 05/26/24 09:05 Apixaban 5 Mg Tablet PO 05/20/25 08:59 5 mg BID BRYAN Administration Aspirin 81 mg 05/21/24 09:00 05/21/24 08:01 Aspirin 81 Mg Tablet. PO 05/21/25 08:59 81 mg Delacruz@0900 BRYAN Administration Atorvastatin Calcium 10 mg 05/21/24 21:00 05/25/24 21:21 Atorvastatin 10 Mg Tablet PO 05/21/25 20:59 10 mg QPM BRYAN Administration Calcium Carbonate 1 tab 05/22/24 14:00 05/26/24 09:04 Calcium Carbonate/Vitamin D3 500 Mg/200 Unit Tablet PO 05/22/25 13:59 1 tab DAILY BRYAN Administration Carvedilol 6.25 mg 05/20/24 08:00 05/26/24 09:05 Carvedilol 6.25 Mg Tablet PO 05/20/25 07:59 6.25 mg BID.WITH.MEALS BRYAN Administration Cyanocobalamin 1,000 mcg 05/23/24 09:00 05/26/24 09:05 Cyanocobalamin 1,000 Mcg Tablet PO 05/23/25 08:59 1,000 mcg DAILY BRYAN Administration Dapagliflozin 10 mg 05/25/24 09:00 05/26/24 09:04 Dapagliflozin 10 Mg Tablet PO 05/25/25 08:59 10 mg DAILY BRYAN Administration Dextrose 0 gm 05/20/24 03:54 Dextrose 50% In Water 25 Gm/50 Ml Syringe IV-PUSH 05/20/25 03:53 PRN PRN Hypoglycemia Doxycycline Hyclate 100 mg 05/20/24 21:00 05/26/24 09:04 Doxycycline Hyclate 100 Mg Tablet PO 100 mg BID BRYAN Administration Finasteride 5 mg 05/20/24 09:00 05/26/24 09:09 Finasteride 5 Mg Tablet PO 05/20/25 08:59 5 mg DAILY BRYAN Administration Furosemide 60 mg 05/25/24 08:00 05/26/24 09:05 Furosemide 20 Mg Tablet PO 05/25/25 07:59 60 mg DAILY.8A BRYAN Administration Glucose 0 gm 05/20/24 03:54 Dextrose 40% Gel 15 Gm Tube PO 05/20/25 03:53 PRN PRN Hypoglycemia Ceftriaxone Sodium 1 gm in 50 mls @ 100 mls/hr 05/20/24 13:00 05/25/24 12:49 Rocephin IV 100 mls/hr Q24H BRYAN Administration Insulin Aspart 0 units 05/20/24 08:00 05/26/24 09:07 Insulin Aspart 300 Units/3 Ml SUBCUT 05/20/25 07:59 Not Given TID.WM.HS BRYAN Protocol Insulin Aspart 0 units 05/22/24 17:00 05/26/24 09:05 Insulin Aspart 300 Units/3 Ml SUBCUT 05/22/25 16:59 11 units TID.WITH.MEALS BRYAN Administration Protocol Insulin Glargine 35 units 05/23/24 21:00 05/26/24 09:09 Insulin Glargine 300 Units/3 Ml Insuln.Pen SUBCUT 05/23/25 20:59 35 units BID BRYAN Administration Linagliptin 5 mg 05/24/24 08:00 05/26/24 09:05 Linagliptin 5 Mg Tablet PO 05/24/25 07:59 5 mg DAILY.WITH.BKFAST BRYAN Administration Magnesium Oxide 400 mg 05/23/24 09:00 05/26/24 09:04 Magnesium Oxide 400 Mg Tablet PO 05/23/25 08:59 400 mg DAILY BRYAN Administration Melatonin 5 mg 05/20/24 03:03 05/25/24 23:02 Melatonin 5 Mg Tablet PO 05/20/25 03:02 5 mg QHS PRN Administration Insomnia Multivitamins 1 tab 05/23/24 09:00 05/26/24 09:04 Multivitamin 1 Tab Tablet PO 05/23/25 08:59 1 tab DAILY BRYAN Administration Ondansetron HCl 4 mg 05/20/24 03:03 Ondansetron 4 Mg/2 Ml Vial IV-PUSH 05/20/25 03:02 Q8H PRN Nausea And Vomiting Pantoprazole Sodium 40 mg 05/20/24 09:00 05/26/24 09:05 Pantoprazole 40 Mg Tablet. PO 05/20/25 08:59 40 mg DAILY BRYAN Administration Potassium Chloride 10 meq 05/21/24 13:00 05/26/24 09:04 Potassium Chloride Er 10 Meq Tablet.Er PO 05/21/25 12:59 10 meq DAILY BRYAN Administration Prednisone 60 mg 05/26/24 09:00 05/26/24 09:04 Prednisone 10 Mg Tablet PO 06/11/24 08:59 60 mg DAILY BRYAN Administration Taper Sodium Chloride 10 ml 05/20/24 04:57 05/23/24 10:34 Sodium Chloride 0.9 % 10 Ml Syringe IV-PUSH 05/20/25 04:56 10 ml PRN PRN Administration Flush Sodium Chloride 0 ml 05/22/24 09:23 Sodium Chloride 0.9 % 10 Ml Syringe IV-PUSH 05/22/25 09:22 PRN PRN Flush Spironolactone 50 mg 05/25/24 09:00 05/26/24 09:05 Spironolactone 50 Mg Tablet PO 05/25/25 08:59 50 mg DAILY BRYAN Administration Terazosin HCl 10 mg 05/20/24 22:00 05/25/24 21:20 Terazosin 5 Mg Capsule PO 05/20/25 21:59 10 mg HS BRYAN Administration Valsartan 40 mg 05/20/24 09:45 05/26/24 09:04 Valsartan 40 Mg Tablet PO 05/20/25 09:44 40 mg BID BRYAN Administration A&P - Hospitalist Assessment/Plan (1) Acute HFrEF (heart failure with reduced ejection fraction): (2) Chronic indwelling Gomez catheter: (3) Acute on chronic hypoxic respiratory failure: (4) Diabetes: (5) Hypomagnesemia: (6) Chronic kidney disease: (7) Interstitial lung disease: (8) Obstructive sleep apnea: (9) Iron deficiency anemia: Plan 1. Acute on chronic HFrEF EF from echo in April 10-%, repeat echo EF 35%. Pt not previously optimized on GDMTA due to CKD, SGLTi added will continue switched to oral lasix, seems to be tolerating well Continue valsartan cardiology consult appreciated 2. Acute respiratory failure with hypoxia-currently on 2L via NC continue high flow, wean as tolerated Pulmonology following, ANCA panel negative, cxray shows marked improvement can begin to taper steroids and discontinue. discontinue ceftriaxone and doxycycline, 5 days completed 3. Chronic afib Continue Coreg and Eliquis 4. Anemia Anemia of chronic disease, elevated ESR and ferritin with low iron, and Anemia of Iron deficiency. Iron infusion done 05/22, 05/23, 05/24, and completed on 05/25. b12 and folate nl stool sample negative for occult blood 5. CKD stage III Cr baseline is 1.6 with good response to diuresis, cr optimal (05/26) at 1.44 BMP daily 6. DM2 with hyperglycemia due to corticosteroids hemoglobin A1c 7.5 long acting and short acting adjusted, will adjust daily. Carb coverage 1:5 7. Hypomagnesemia (05/22) 1.6 goal Mg>2.0 8. Obstructive sleep apnea. Patient has demonstrated optimal compliance is extremely oriental orthodox about using his sleep apnea machine. Code: DNRCCA with intubation DVT px: as above Diet: heart healthy 2 grams sodium. +++ +++ I saw and personally examined this patient on the date of the encounter. I agree with the documentation as written. I personally discussed the case and formulated the plan of care in conjunction withmedical student who began this note, and made adjustments to this document at the time of my signature. - - - Richard Zamora DO. Internal Medicine + Hospitalist attending physician. Documented By: Richard Zamora DO 1049 Signed By: 05/26/24 1415 [facility]03-06-2025 Progress note Author Darshan Willams [facility] Note Date/Time May 25, 2024 7:18 pm [facility] [address] [place] [address] Pulmonology Progress Note Signed Patient: Leighton Arciniega MR#: [id number] : 1945 Acct:[id number] Age/Sex: 78 / M Adm Date: 5 Loc: Room: [address] [place] [address] Type: ADM IN Attending Dr: Richard Zamora DO Copies to: ~ Date of Service: 05/25/2024 Subjective Subjective Narrative: Patient does feel that his breathing is improved though continues to complain ofbeing weak. He is not expectorating significant mucus. Exam Physical Exam Vital Signs: Temp Pulse Resp BP Pulse Ox O2 Del Method O2 Flow Rate 97.7 F 69 16 125/63 90 L Nasal Cannula 2 05/25/24 08:45 05/25/24 19:58 05/25/24 19:58 05/25/24 19:58 05/25/24 19:58 05/25/24 19:58 05/25/24 19:58 FiO2 30 05/22/24 23:41 Const General: cooperative and not in acute distress Nutritional Appearance: average body habitus Orientation: alert and awake HEENT Head: normocephalic Ears: hearing grossly normal bilaterally and external ears normal Nose: external nose normal Face and sinus: normal facial exam Eyes Eyelids: eyelids normal Neck Neck: normal visual inspection Chest Chest palpation & inspection: normal inspection of the chest Resp Effort & Inspection: normal respiratory effort, able to speak in complete sentences and no use of accessory muscles Auscultation: crackles bilaterally at the base, no rhonchi and no wheezes Cardio Rate: regular rate Rhythm: abnormal rhythm irregularly irregular Heart Sounds: S1 normal and S2 normal GI Inspection: normal to inspection Palpation: soft Auscultation: hypoactive bowel sounds Rectal Exam: deferred General: deferred Skin Lesions: no lesions Rashes: no rashes Extrem General: no pedal edema Objective Intake and Output I&O - Last 24 Hours: Intake & Output 05/25/24 05/25/24 05/25/24 07:59 15:59 23:59 Intake Total 0 / 550 400 / 550 150 / 550 Output Total 1250 / 2900 650 / 2900 1000 / 2900 Balance -1250 / -2350 -250 / -2350 -850 / -2350 Weight 85 kg Labs 05/25/24 05:44 05/25/24 05:44 Imaging and Cardiology Chest x-ray: Status: image reviewed by me Additional comments: Date of Service: 05/25/24 XR/XR chest 2V*: reevaluate bilateral infiltrates Chest 2 views CLINICAL HISTORY: Follow-up infiltrates COMPARISON: Chest 05/20/2024 FINDINGS: Cardiomegaly with vascular congestion and interstitial changes have improved since the prior study. 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 No pneumothorax or free air. XR/XR chest 2V* IMPRESSION: IMPROVEMENT IN AERATION OF THE LUNGS WHEN COMPARED TO THE PRIOR STUDY. CONTINUED FOLLOW-UP IS RECOMMENDED. Assessment/Plan Assessment/Plan (1) Acute on chronic hypoxic respiratory failure: (2) Acute HFrEF (heart failure with reduced ejection fraction): (3) Hemoptysis: (4) Pulmonary infiltrates: (5) COPD (chronic obstructive pulmonary disease): (6) Obstructive sleep apnea: (7) Afib: (8) Chronic kidney disease: (9) Pacemaker: (10) Sick sinus syndrome: (11) Anemia: (12) Diabetes: Plan Hospital day #5 for patient with recurrent acute on chronic hypoxemic respiratory failure in the context of known ischemic cardiomyopathy and concernsfor volume overload but also with scattered groundglass opacity with areas of septal thickening with concerns for acute interstitial pneumonia versus ongoing interstitial lung disease * Note improvement in chest x-ray likely on the basis of diuresis though with continued infiltrates. * Methylprednisolone was decreased to 40 mg IV every 12 hours and at discharge can be discharged on steroid taper for 4 weeks (consider 40 mg daily x 7 days, 30 mg daily x 7 days, 20 mg daily x 7 days, 10 mg daily x 7 days) and will plan for follow-up office visit in 6 weeks with repeat two-view chest x-ray and pulmonary function tests * This was discussed at length with the patient who is agreeable. Continue weaning oxygen as tolerated. Documented By: Darshan Willams MD 2013 Signed By: <Electronically signed by MD Darshan Willams> 05/25/242017 [facility] Work Phone: 1(640) 346-288903-06-2025 [place] [address] Pulmonology Progress Note Signed Patient: Leighton Arciniega MR#: [id number] : 1945 Acct:[id number] Age/Sex: 78 / M Adm Date: Loc: Room: [address] [place] [address] Type: ADM IN Attending Dr: Richard Zamora DO Copies to: ~ Date of Service: 05/25/2024 Subjective Subjective Narrative: Patient does feel that his breathing is improved though continues to complain ofbeing weak. He is not expectorating significant mucus. Exam Physical Exam Vital Signs: Temp Pulse Resp BP Pulse Ox O2 Del Method O2 Flow Rate 97.7 F 69 16 125/63 90 L Nasal Cannula 2 05/25/24 08:45 05/25/24 19:58 05/25/24 19:58 05/25/24 19:58 05/25/24 19:58 05/25/24 19:58 05/25/24 19:58 FiO2 30 05/22/24 23:41 Const General: cooperative and not in acute distress Nutritional Appearance: average body habitus Orientation: alert and awake HEENT Head: normocephalic Ears: hearing grossly normal bilaterally and external ears normal Nose: external nose normal Face and sinus: normal facial exam Eyes Eyelids: eyelids normal Neck Neck: normal visual inspection Chest Chest palpation & inspection: normal inspection of the chest Resp Effort & Inspection: normal respiratory effort, able to speak in complete sentences and no use of accessory muscles Auscultation: crackles bilaterally at the base, no rhonchi and no wheezes Cardio Rate: regular rate Rhythm: abnormal rhythm irregularly irregular Heart Sounds: S1 normal and S2 normal GI Inspection: normal to inspection Palpation: soft Auscultation: hypoactive bowel sounds Rectal Exam: deferred General: deferred Skin Lesions: no lesions Rashes: no rashes Extrem General: no pedal edema Objective Intake and Output I&O - Last 24 Hours: Intake & Output 05/25/24 05/25/24 05/25/24 07:59 15:59 23:59 Intake Total 0 / 550 400 / 550 150 / 550 Output Total 1250 / 2900 650 / 2900 1000 / 2900 Balance -1250 / -2350 -250 / -2350 -850 / -2350 Weight 85 kg Labs 05/25/24 05:44 05/25/24 05:44 Imaging and Cardiology Chest x-ray: Status: image reviewed by me Additional comments: Date of Service: 05/25/24 XR/XR chest 2V*: reevaluate bilateral infiltrates Chest 2 views CLINICAL HISTORY: Follow-up infiltrates COMPARISON: Chest 05/20/2024 FINDINGS: Cardiomegaly with vascular congestion and interstitial changes have improved since the prior study.Pacemaker device in place. No pneumothorax or free air. XR/XR chest 2V* IMPRESSION: IMPROVEMENT IN AERATION OF THE LUNGS WHEN COMPARED TO THE PRIOR STUDY. CONTINUED FOLLOW-UP IS RECOMMENDED. Assessment/Plan Assessment/Plan (1) Acute on chronic hypoxic respiratory failure: (2) Acute HFrEF (heart failure with reduced ejection fraction): (3) Hemoptysis: (4) Pulmonary infiltrates: (5) COPD (chronic obstructive pulmonary disease): (6) Obstructive sleep apnea: (7) Afib: (8) Chronic kidney disease: (9) Pacemaker: (10) Sick sinus syndrome: (11) Anemia: (12) Diabetes: Plan Hospital day #5 for patient with recurrent acute on chronic hypoxemic respiratory failure in the context of known ischemic cardiomyopathy and concernsfor volume overload but also with scattered groundglass opacity with areas of septal thickening with concerns for acute interstitial pneumonia versus ongoing interstitial lung disease * Note improvement in chest x-ray likely on the basis of diuresis though with continued infiltrates. * Methylprednisolone was decreased to 40 mg IV every 12 hours and at discharge can be discharged onsteroid taper for 4 weeks (consider 40 mg daily x 7 days, 30 mg daily x 7 days, 20 mg daily x 7 days, 10 mg daily x 7 days) and will plan for follow-up office visit in 6 weeks with repeat two-view chest x-ray and pulmonary function tests * This was discussed at length with the patient who is agreeable. Continue weaning oxygen as tolerated. Documented By: Darshan Willams MD 2013 Signed By: 05/25/242017 [facility]03-06-2025 Progress note Author Richard Zamora [facility] Note Date/Time May 25, 2024 2:21 pm [facility] [address] [place] [address] Hospitalist Progress Note Signed Patient: Leighton Arciniega MR#: [id number] : 1945 Acct:[id number] Age/Sex: 78 / M Adm Date: Loc: Room: [address] [place] [address] Type: ADM IN Attending Dr: Richard Zamora DO Copies to: ~ Date of Service: 05/25/2024 Subjective Subjective Narrative: Pt observed sitting up in chair. He says he did not sleep well last night due tonot being able to get comfortable because of pain in his back. He was given Tylenol and that seemed to help and he slept after that. He says he normally takes Tylenol when it is hurting, but tries not to take it that often. He is feeling well today, think he is getting better, feels better than the day before. He is down today to 2L via NC. He is still having some shortness of breath when he goes from his bed to his chair, he says it takes him a few minutes to recover. Exam: GENERAL: alert, oriented, appears stated age, comfortable HEENT: NC/AT CARDIOVASCULAR: Regular rate and irregular rhythm, , symmetric palpable radial pulses RESPIRATORY: comfortable on 2L via NC, basilar rhonchi b/l ABDOMEN: Soft, non-tender, non-distended, normal bowel sounds EXTREMITIES: moving all extremities well. Well-perfused. +1 non-pitting edema SKIN: Intact, no rash, no trauma PSYCHIATRIC: appropriate mood and affect, cooperative Exam Physical Exam Vital Signs: Temp Pulse Resp BP Pulse Ox O2 Del Method O2 Flow Rate 97.7 F 70 14 130/70 97 Nasal Cannula 2 05/25/24 08:45 05/25/24 08:45 05/25/24 04:00 05/25/24 08:45 05/25/24 08:45 05/25/24 08:48 05/25/24 08:48 FiO2 30 05/22/24 23:41 Objective Lab Results 05/25/24 05:44 05/25/24 05:44 Microbiology Results Microbiology 05/22/24 11:32 Nares, Left MRSA Culture - Final No MRSA Isolated 2 Days Meds Allergies and Active Meds Allergies fosinopril Allergy (Verified 05/09/24 19:59) SOB metoprolol Allergy (Verified 05/09/24 19:59) Hypotension strawberry Allergy (Verified 05/09/24 19:59) Rash Active Meds: Active Medications Generic Name Dose Route Start Last Admin Trade Name Freq PRN Reason Stop Dose Admin Acetaminophen 650 mg 05/20/24 03:03 05/25/24 01:51 Acetaminophen 325 Mg Tablet PO 05/20/25 03:02 650 mg Q6HR PRN Administration Pain Scale 1 - 3 or fever Albuterol 2.5 mg 05/20/24 05:49 Albuterol Neb 2.5 Mg/3 Ml Vial.Neb INHALATION 05/20/25 05:48 Q4H PRN shortness of breath or wheezing Allopurinol 300 mg 05/20/24 09:00 05/25/24 08:55 Allopurinol 300 Mg Tablet PO 05/20/25 08:59 300 mg DAILY BRYAN Administration Apixaban 5 mg 05/20/24 09:00 05/25/24 08:55 Apixaban 5 Mg Tablet PO 05/20/25 08:59 5 mg BID BRYAN Administration Aspirin 81 mg 05/21/24 09:00 05/21/24 08:01 Aspirin 81 Mg Tablet.Dr PO 05/21/25 08:59 81 mg Delacruz@0900 BRYAN Administration Atorvastatin Calcium 10 mg 05/21/24 21:00 05/24/24 21:35 Atorvastatin 10 Mg Tablet PO 05/21/25 20:59 10 mg QPM BRYAN Administration Calcium Carbonate 1 tab 05/22/24 14:00 05/25/24 08:55 Calcium Carbonate/Vitamin D3 500 Mg/200 Unit Tablet PO 05/22/25 13:59 1 tab DAILY BRYAN Administration Carvedilol 6.25 mg 05/20/24 08:00 05/25/24 08:55 Carvedilol 6.25 Mg Tablet PO 05/20/25 07:59 6.25 mg BID.WITH.MEALS BRYAN Administration Cyanocobalamin 1,000 mcg 05/23/24 09:00 05/25/24 08:55 Cyanocobalamin 1,000 Mcg Tablet PO 05/23/25 08:59 1,000 mcg DAILY BRYAN Administration Dapagliflozin 10 mg 05/25/24 09:00 05/25/24 08:54 Dapagliflozin 10 Mg Tablet PO 05/25/25 08:59 10 mg DAILY BRYAN Administration Dextrose 0 gm 05/20/24 03:54 Dextrose 50% In Water 25 Gm/50 Ml Syringe IV-PUSH 05/20/25 03:53 PRN PRN Hypoglycemia Doxycycline Hyclate 100 mg 05/20/24 21:00 05/25/24 08:55 Doxycycline Hyclate 100 Mg Tablet PO 100 mg BID BRYAN Administration Finasteride 5 mg 05/20/24 09:00 05/25/24 08:56 Finasteride 5 Mg Tablet PO 05/20/25 08:59 5 mg DAILY BRYAN Administration Furosemide 60 mg 05/25/24 08:00 05/25/24 08:54 Furosemide 20 Mg Tablet PO 05/25/25 07:59 60 mg DAILY.8A BRYAN Administration Glucose 0 gm 05/20/24 03:54 Dextrose 40% Gel 15 Gm Tube PO 05/20/25 03:53 PRN PRN Hypoglycemia Ceftriaxone Sodium 1 gm in 50 mls @ 100 mls/hr 05/20/24 13:00 05/24/24 12:14 Rocephin IV 100 mls/hr Q24H BRYAN Administration Ferric Sodium Gluconate 270 mls @ 135 mls/hr 05/22/24 14:00 05/25/24 08:54 Complex 250 mg/ Sodium IV 05/25/24 10:59 135 mls/hr Chloride QAM BRYAN Administration Insulin Aspart 0 units 05/20/24 08:00 05/25/24 08:56 Insulin Aspart 300 Units/3 Ml SUBCUT 05/20/25 07:59 Not Given TID.WM.HS BRYAN Protocol Insulin Aspart 0 units 05/22/24 17:00 05/25/24 08:57 Insulin Aspart 300 Units/3 Ml SUBCUT 05/22/25 16:59 11 units TID.WITH.MEALS BRYAN Administration Protocol Insulin Glargine 35 units 05/23/24 21:00 05/25/24 09:04 Insulin Glargine 300 Units/3 Ml Insuln.Pen SUBCUT 05/23/25 20:59 35 units BID BRYAN Administration Linagliptin 5 mg 05/24/24 08:00 05/25/24 08:54 Linagliptin 5 Mg Tablet PO 05/24/25 07:59 5 mg DAILY.WITH.BKFAST BRYAN Administration Magnesium Oxide 400 mg 05/23/24 09:00 05/25/24 08:54 Magnesium Oxide 400 Mg Tablet PO 05/23/25 08:59 400 mg DAILY BRYAN Administration Melatonin 5 mg 05/20/24 03:03 05/24/24 21:35 Melatonin 5 Mg Tablet PO 05/20/25 03:02 5 mg QHS PRN Administration Insomnia Methylprednisolone Sodium Succinate 40 mg 05/21/24 21:00 05/25/24 08:55 Methylprednisolone Sod Succ/Pf 40 Mg/Ml (1ml) Vial IV-PUSH 05/21/25 20:59 40 mg Q12HR BRYAN Administration Multivitamins 1 tab 05/23/24 09:00 05/25/24 08:55 Multivitamin 1 Tab Tablet PO 05/23/25 08:59 1 tab DAILY BRYAN Administration Ondansetron HCl 4 mg 05/20/24 03:03 Ondansetron 4 Mg/2 Ml Vial IV-PUSH 05/20/25 03:02 Q8H PRN Nausea And Vomiting Pantoprazole Sodium 40 mg 05/20/24 09:00 05/25/24 08:55 Pantoprazole 40 Mg Tablet. PO 05/20/25 08:59 40 mg DAILY BRYAN Administration Potassium Chloride 10 meq 05/21/24 13:00 05/25/24 08:55 Potassium Chloride Er 10 Meq Tablet.Er PO 05/21/25 12:59 10 meq DAILY BRYAN Administration Sodium Chloride 10 ml 05/20/24 04:57 05/23/24 10:34 Sodium Chloride 0.9 % 10 Ml Syringe IV-PUSH 05/20/25 04:56 10 ml PRN PRN Administration Flush Sodium Chloride 0 ml 05/22/24 09:23 Sodium Chloride 0.9 % 10 Ml Syringe IV-PUSH 05/22/25 09:22 PRN PRN Flush Spironolactone 50 mg 05/25/24 09:00 05/25/24 09:38 Spironolactone 50 Mg Tablet PO 05/25/25 08:59 50 mg DAILY BRYAN Administration Terazosin HCl 10 mg 05/20/24 22:00 05/24/24 21:35 Terazosin 5 Mg Capsule PO 05/20/25 21:59 10 mg HS BRYAN Administration Valsartan 40 mg 05/20/24 09:45 05/25/24 08:55 Valsartan 40 Mg Tablet PO 05/20/25 09:44 40 mg BID BRYAN Administration A&P - Hospitalist Assessment/Plan (1) Acute HFrEF (heart failure with reduced ejection fraction): (2) Chronic indwelling Gomez catheter: Plan: placed by urologist, will manage. (3) Acute on chronic hypoxic respiratory failure: (4) Diabetes: (5) Hypomagnesemia: (6) Afib: (7) Chronic kidney disease: (8) Interstitial lung disease: (9) Obstructive sleep apnea: (10) Iron deficiency anemia: Plan Assessment and Plan: 1. Acute on chronic HFrEF EF from echo in April 10-25%, repeat echo EF 35%. Pt not previously optimized on GDMTA due to CKD, SGLTi added will continue Will switch IV Lasix to oral continue to monitor BMP adjust as needed based on Cr. Continue valsartan cardiology consult appreciated 2. Acute respiratory failure with hypoxia-currently on 2L via NC continue high flow, wean as tolerated Pulmonology following, ANCA panel negative, cxray shows marked improvement can begin to taper steroids and discontinue. continue ceftriaxone and doxycycline, 7 day course recommended. 05/25 is day 5 3. Chronic afib Continue Coreg and Eliquis 4. Anemia Anemia of chronic disease, elevated ESR and ferritin with low iron Iron infusion done 05/22, 05/23, 05/24 b12 and folate nl stool sample negative for occult blood 5. CKD stage III Cr baseline is 1.6 with good response to diuresis, cr optimal (05/25) at 1.51 BMP daily 6. DM2 with hyperglycemia due to corticosteroids hemoglobin A1c 7.5 long acting and short acting adjusted, will adjust daily. Carb coverage 1:5 7. Hypomagnesemia (05/22) 1.6 goal Mg>2.0 Code: DNRCCA with intubation DVT px: as above Diet: heart healthy 2 grams sodium. +++ +++ I saw and personally examined this patient on the date of the encounter. I agree with the documentation as written. I personally discussed the case and formulated the plan of care in conjunction with medical student who began this note, and made adjustments to this document at the time of my signature. - - - Richard Zamora DO. Internal Medicine + Hospitalist attending physician. My recommendation is to start Entresto. The patient is already on an ARB. The patient's creatinine is been very stable in the face of intensive diuresis. Thepatient's weight has improved from a high of 99.5 kg on 05/09/2024 down to 93.8 kg - when he presented for this particular hospital stay on 05/20/2024 and now down to 83.2 kg on 05/24/2024. Cardiology prefers not to start the ARNI at this time but to have the patient see Dr. Dickinson in the office in follow-up whichwill be done in 1 month. Documented By: Richard Zamora DO [id number] Signed By: <Electronically signed by Richard Zamora DO> 05/25/24 1521 [facility] Work Phone: 1(756) 265-667603-06-2025 [place] [address] Hospitalist Progress Note Signed Patient: Leighton Arciniega MR#: [id number] : 1945 Acct:[id number] Age/Sex: 78 / M Adm Date: 5 Loc: Room: [address] [place] [address] Type: ADM IN Attending Dr: Richard Zamora DO Copies to: ~ Date of Service: 05/25/2024 Subjective Subjective Narrative: Pt observed sitting up in chair. He says he did not sleep well last night due tonot being able to get comfortable because of pain in his back. He was given Tylenol and that seemed to help and he slept after that. He says he normally takes Tylenol when it is hurting, but tries not to take it that often. He is feeling well today, think he is getting better, feels better than the day before. He is down today to 2L via NC. He is still having some shortness of breath when he goes from his bed to hischair, he says it takes him a few minutes to recover. Exam: GENERAL: alert, oriented, appears stated age, comfortable HEENT: NC/AT CARDIOVASCULAR: Regular rate and irregular rhythm, , symmetric palpable radial pulses RESPIRATORY: comfortable on 2L via NC, basilar rhonchi b/l ABDOMEN: Soft, non-tender, non-distended, normal bowel sounds EXTREMITIES: moving all extremities well. Well-perfused. +1 non-pitting edema SKIN: Intact, no rash, no trauma PSYCHIATRIC: appropriate mood and affect, cooperative Exam Physical Exam Vital Signs: Temp Pulse Resp BP Pulse Ox O2 Del Method O2 Flow Rate 97.7 F 70 14 130/70 97 Nasal Cannula 2 05/25/24 08:45 05/25/24 08:45 05/25/24 04:00 05/25/24 08:45 05/25/24 08:45 05/25/24 08:48 05/25/24 08:48 FiO2 30 05/22/24 23:41 Objective Lab Results 05/25/24 05:44 05/25/24 05:44 Microbiology Results Microbiology 05/22/24 11:32 Nares, Left MRSA Culture - Final No MRSA Isolated 2 Days Meds Allergies and Active Meds Allergies fosinopril Allergy (Verified 05/09/24 19:59) SOB metoprolol Allergy (Verified 05/09/24 19:59) Hypotension strawberry Allergy (Verified 05/09/24 19:59) Rash Active Meds: Active Medications Generic Name Dose Route Start Last Admin Trade Name Freq PRN Reason Stop Dose Admin Acetaminophen 650 mg 05/20/24 03:03 05/25/24 01:51 Acetaminophen 325 Mg Tablet PO 05/20/25 03:02 650 mg Q6HR PRN Administration Pain Scale 1 - 3 or fever Albuterol 2.5 mg 05/20/24 05:49 Albuterol Neb 2.5 Mg/3 Ml Vial.Neb INHALATION 05/20/25 05:48 Q4H PRN shortness of breath or wheezing Allopurinol 300 mg 05/20/24 09:00 05/25/24 08:55 Allopurinol 300 Mg Tablet PO 05/20/25 08:59 300 mg DAILY BRYAN Administration Apixaban 5 mg 05/20/24 09:00 05/25/24 08:55 Apixaban 5 Mg Tablet PO 05/20/25 08:59 5 mg BID BRYAN Administration Aspirin 81 mg 05/21/24 09:00 05/21/24 08:01 Aspirin 81 Mg Tablet. PO 05/21/25 08:59 81 mg Delacruz@[email or web address] BRYAN Administration Atorvastatin Calcium 10 mg 05/21/24 21:00 05/24/24 21:35 Atorvastatin 10 Mg Tablet PO 05/21/25 20:59 10 mg QPM BRYAN Administration Calcium Carbonate 1 tab 05/22/24 14:00 05/25/24 08:55 Calcium Carbonate/Vitamin D3 500 Mg/200 Unit Tablet PO 05/22/25 13:59 1 tab DAILY BRYAN Administration Carvedilol 6.25 mg 05/20/24 08:00 05/25/24 08:55 Carvedilol 6.25 Mg Tablet PO 05/20/25 07:59 6.25 mg BID.WITH.MEALS BRYAN Administration Cyanocobalamin 1,000 mcg 05/23/24 09:00 05/25/24 08:55 Cyanocobalamin 1,000 Mcg Tablet PO 05/23/25 08:59 1,000 mcg DAILY BRYAN Administration Dapagliflozin 10 mg 05/25/24 09:00 05/25/24 08:54 Dapagliflozin 10 Mg Tablet PO 05/25/25 08:59 10 mg DAILY BRYAN Administration Dextrose 0 gm 05/20/24 03:54 Dextrose 50% In Water 25 Gm/50 Ml Syringe IV-PUSH 05/20/25 03:53 PRN PRN Hypoglycemia Doxycycline Hyclate 100 mg 05/20/24 21:00 05/25/24 08:55 Doxycycline Hyclate 100 Mg Tablet PO 100 mg BID BRYAN Administration Finasteride 5 mg 05/20/24 09:00 05/25/24 08:56 Finasteride 5 Mg Tablet PO 05/20/25 08:59 5 mg DAILY BRYAN Administration Furosemide 60 mg 05/25/24 08:00 05/25/24 08:54 Furosemide 20 Mg Tablet PO 05/25/25 07:59 60 mg DAILY.8A BRYAN Administration Glucose 0 gm 05/20/24 03:54 Dextrose 40% Gel 15 Gm Tube PO 05/20/25 03:53 PRN PRN Hypoglycemia Ceftriaxone Sodium 1 gm in 50 mls @ 100 mls/hr 05/20/24 13:00 05/24/24 12:14 Rocephin IV 100 mls/hr Q24H BRYAN Administration Ferric Sodium Gluconate 270 mls @ 135 mls/hr 05/22/24 14:00 05/25/24 08:54 Complex 250 mg/ Sodium IV 05/25/24 10:59 135 mls/hr Chloride QAM BRYAN Administration Insulin Aspart 0 units 05/20/24 08:00 05/25/24 08:56 Insulin Aspart 300 Units/3 Ml SUBCUT 05/20/25 07:59 Not Given TID.WM.HS BRYAN Protocol Insulin Aspart 0 units 05/22/24 17:00 05/25/24 08:57 Insulin Aspart 300 Units/3 Ml SUBCUT 05/22/25 16:59 11 units TID.WITH.MEALS BRYAN Administration Protocol Insulin Glargine 35 units 05/23/24 21:00 05/25/24 09:04 Insulin Glargine 300 Units/3 Ml Insuln.Pen SUBCUT 05/23/25 20:59 35 units BID BRYAN Administration Linagliptin 5 mg 05/24/24 08:00 05/25/24 08:54 Linagliptin 5 Mg Tablet PO 05/24/25 07:59 5 mg DAILY.WITH.BKFAST BRYAN Administration Magnesium Oxide 400 mg 05/23/24 09:00 05/25/24 08:54 Magnesium Oxide 400 Mg Tablet PO 05/23/25 08:59 400 mg DAILY BRYAN Administration Melatonin 5 mg 05/20/24 03:03 05/24/24 21:35 Melatonin 5 Mg Tablet PO 05/20/25 03:02 5 mg QHS PRN Administration Insomnia Methylprednisolone Sodium Succinate 40 mg 05/21/24 21:00 05/25/24 08:55 Methylprednisolone Sod Succ/Pf 40 Mg/Ml (1ml) Vial IV-PUSH 05/21/25 20:59 40 mg Q12HR BRYAN Administration Multivitamins 1 tab 05/23/24 09:00 05/25/24 08:55 Multivitamin 1 Tab Tablet PO 05/23/25 08:59 1 tab DAILY BRYAN Administration Ondansetron HCl 4 mg 05/20/24 03:03 Ondansetron 4 Mg/2 Ml Vial IV-PUSH 05/20/25 03:02 Q8H PRN Nausea And Vomiting Pantoprazole Sodium 40 mg 05/20/24 09:00 05/25/24 08:55 Pantoprazole 40 Mg Tablet. PO 05/20/25 08:59 40 mg DAILY BRYAN Administration Potassium Chloride 10 meq 05/21/24 13:00 05/25/24 08:55 Potassium Chloride Er 10 Meq Tablet.Er PO 05/21/25 12:59 10 meq DAILY BRYAN Administration Sodium Chloride 10 ml 05/20/24 04:57 05/23/24 10:34 Sodium Chloride 0.9 % 10 Ml Syringe IV-PUSH 05/20/25 04:56 10 ml PRN PRN Administration Flush Sodium Chloride 0 ml 05/22/24 09:23 Sodium Chloride 0.9 % 10 Ml Syringe IV-PUSH 05/22/25 09:22 PRN PRN Flush Spironolactone 50 mg 05/25/24 09:00 05/25/24 09:38 Spironolactone 50 Mg Tablet PO 05/25/25 08:59 50 mg DAILY BRYAN Administration Terazosin HCl 10 mg 05/20/24 22:00 05/24/24 21:35 Terazosin 5 Mg Capsule PO 05/20/25 21:59 10 mg HS BRYAN Administration Valsartan 40 mg 05/20/24 09:45 05/25/24 08:55 Valsartan 40 Mg Tablet PO 05/20/25 09:44 40 mg BID BRYAN Administration A&P - Hospitalist Assessment/Plan (1) Acute HFrEF (heart failure with reduced ejection fraction): (2) Chronic indwelling Gomez catheter: Plan: placed by urologist, will manage. (3) Acute on chronic hypoxic respiratory failure: (4) Diabetes: (5) Hypomagnesemia: (6) Afib: (7) Chronic kidney disease: (8) Interstitial lung disease: (9) Obstructive sleep apnea: (10) Iron deficiency anemia: Plan Assessment and Plan: 1. Acute on chronic HFrEF EF from echo in March 20-25%, repeat echo EF 35%. Pt not previously optimized on GDMTA due to CKD, SGLTi added will continue Will switch IV Lasix to oral continue to monitor BMP adjust as needed based on Cr. Continue valsartan cardiology consult appreciated 2. Acute respiratory failure with hypoxia-currently on 2L via NC continue high flow, wean as tolerated Pulmonology following, ANCA panel negative, cxray shows marked improvement can begin to taper steroids and discontinue. continue ceftriaxone and doxycycline, 7 day course recommended. 05/25 is day 5 3. Chronic afib Continue Coreg and Eliquis 4. Anemia Anemia of chronic disease, elevated ESR and ferritin with low iron Iron infusion done 05/22, 05/23, 05/24 b12 and folate nl stool sample negative for occult blood 5. CKD stage III Cr baseline is 1.6 with good response to diuresis, cr optimal (05/25) at 1.51 BMP daily 6. DM2 with hyperglycemia due to corticosteroids hemoglobin A1c 7.5 long acting and short acting adjusted, will adjust daily. Carb coverage 1:5 7. Hypomagnesemia (05/22) 1.6 goal Mg>2.0 Code: DNRCCA with intubation DVT px: as above Diet: heart healthy 2 grams sodium. +++ +++ I saw and personally examined this patient on the date of the encounter. I agree with the documentation as written. I personally discussed the case and formulated the plan of care in conjunction withmedical student who began this note, and made adjustments to this document at the time of my signature. - - - Richard Zamora DO. Internal Medicine + Hospitalist attending physician. My recommendation is to start Entresto. The patient is already on an ARB. The patient's creatinine is been very stable in the face of intensive diuresis. Thepatient's weight has improved from a high of 99.5 kg on 05/09/2024 down to 93.8 kg - when he presented for this particular hospital stay on 05/20/2024 and now down to 83.2 kg on 05/24/2024. Cardiology prefers not to start the ARNI at this time butto have the patient see Dr. Dickinson in the office in follow-up whichwill be done in 1 month. Documented By: Richard Zamora DO [id number] Signed By: 05/25/24 1521 [facility]03-06-2025 Progress note Author Shirley Harvey [facility] Note Date/Time May 25, 2024 9:47 am [facility] [address] [place] [address] Cardiology Progress Note Signed Patient: Leighton Arciniega MR#: [id number] : 1945 Acct:[id number] Age/Sex: 78 / M Adm Date: 5 Loc: Room: [address] [place] [address] Type: ADM IN Attending Dr: Richard Zamora DO Copies to: ~ Date of Service: 05/25/2024 Subjective Principal diagnosis: CHF management Interval history: Mr. Arciniega is a 78-year-old male who was admitted to [facility] on 05/19/2023 with hypoxic respiratory failure due to pneumonia and CHF. Chest x-rayyesterday shows bilateral opacities due to pneumonia versus CHF. [facility] and underwent diuresis and eventual discharge to [facility]. He was discharged on Bumex p.o. which he would have been getting at the SNF. He has known CHF with an EF of 20-25%. Plans were made for outpatient stress MPI and his follow-up appointment at [facility] Cardiology was scheduled for 06/15/2024. However due to worsening respiratory function he is nowreadmitted to the hospital. He was stabilized on BiPAP. Continues to have some coughing but is feeling better. Last C was normal but was at [facility] in 2012. Interim evaluation 05/21/2024: No acute events. Resp status has greatly improved. He is on 4L O2 today and says he is on 2-3L O2 at home. Is on bumex gtt. Net neg -1844ml yesterday. Interim evaluation 05/22/2024: Patient is sitting in chair when I enter the room. He reports he is feeling better today. He denies chest pain, shortness of breath. He denies other complaints. Labs, imaging, monitor record reviewed today. Hemoglobin 7.9 today, stable fromyesterday, however baseline is 9. Kidney function stable from yesterday, BUN 59, creatinine 1.90, potassium 3.7. Magnesium 1.6. Ferritin elevated to 717. Chest CT from May 20 shows scattered areas of groundglass and septal thickeningwith small bilateral pleural effusion. Findings may relate to CHF/pulmonary edema or atypical infectious process. Monitor record shows A-fib with normal ventricular rate, IVCD. Stress test is scheduled for tomorrow. Depending on results, patient may requireevaluation/intervention with cath. No further recommendations per cardiology at this time. Attending note: Patient up to chair, doing well, seen and evaluated in conjunction with Dr. Capone and with critical care/Dr. Willams. There is concern of pneumonitis and therefore IV steroids initiated, acute on chronic anemia noted, severe LV dysfunction by recent echo from last admission also noted. Stress perfusion imaging to perform this hospitalization. All the abovediscussed with patient and family members Interim evaluation 05/23/2024: Patient is sitting up in chair manage the room. Hereports feeling well today. He denies chest pain, shortness of breath. He denies other complaints. Labs, monitor record reviewed today. Hemoglobin 8, stable. Kidney function stable from yesterday, BUN 77, creatinine 1.78, potassium 3.7. Glucose 245. Monitor record shows A-fib with normal ventricularrate, pacemaker present. Stress test revealed ejection fraction 35%. Final report to follow. Will reassess after results. Interim evaluation 05/24/2024: Patient is lying comfortably in bed when I enter the room. He is feeling well today and denies chest pain, shortness of breath, or other complaints. Labs, imaging, monitor record reviewed today. Kidney function declining, BUN 83, Cr 1.91, potassium 3.6. Monitor record shows A-fib with normal ventricular rate, pacemaker present. Lexiscan reviewed: myocardial perfusion WNL no ischemia or infarction. Severely dilatd LV with apical hypokinesis. Reduced LV systolic function. LVEF=35%. Attending note patient seen and evaluated with Dr. Capone, serum creatinine climbing with IV loop diuresis I believe we could switch over to oral diuresis at this juncture, chronic atrial fibrillation noted and stress perfusion exam with no ischemia, severely dilated LV with reduced ejection fraction of 35%. Clinically he still has dyspnea at rest with fine bibasilar crackles and no wheezes. Will schedule follow-up with Dr. Dickinson, continue current therapies but again recommend switching over to oral diuresis Interim evaluation 05/25/2024: Patient up to chair this morning, comfortable, mildconversational dyspnea noted with persistent dry crackles on exam. Creatinine is down to 1.51, greatly improved; chest x-ray dramatically better over the past5 days with steroids and furosemide. Still has interstitial bibasilar infiltrates. As mentioned above, will arrange cardiology follow-up following discharge from rehab, continue with oral furosemide; pulmonary follow-up Exam Physical Exam Vital Signs: Temp Pulse Resp BP Pulse Ox O2 Del Method O2 Flow Rate 97.7 F 70 14 130/70 97 Nasal Cannula 2 05/25/24 08:45 05/25/24 08:45 05/25/24 04:00 05/25/24 08:45 05/25/24 08:45 05/25/24 08:48 05/25/24 08:48 FiO2 30 05/22/24 23:41 Objective Labs 05/25/24 05:44 05/25/24 05:44 Labs: Laboratory Results - last 24 hr 05/24/24 05/25/24 05/25/24 20:42 05:44 06:33 Corrected WBC 8.4 Uncorrected WBC Count 8.4 RBC 2.59 L Hgb 8.2 L Hct 23.9 L MCV 92.3 MCH 31.5 MCHC 34.1 RDW 16.2 H Plt Count 341 MPV 6.6 Neut % (Auto) 90.0 Lymph % (Auto) 5.6 [place] % (Auto) 4.1 Eos % (Auto) 0.0 Baso % (Auto) 0.3 Nucleat RBC Rel Count 0.2 Neut # (Auto) 7.6 Lymph # (Auto) 0.5 L [place] # (Auto) 0.3 Eos # (Auto) 0.0 Baso # (Auto) 0.0 Platelet Estimate Normal Plt Morphology Comment Normal RBC Morphology N/A Polychromasia Slight Hypochromasia Slight Anisocytosis Slight PHA Creatinine Clear 41.63 Sodium 140 Potassium 3.7 Chloride 104 Carbon Dioxide 29.8 Anion Gap 9.9 BUN 78 H Creatinine 1.51 H Est GFR (CKD-EPI) 46.982 Glucose 109 H POC Glucose 138 113 Calcium 8.4 L A&P - Cardiology (1) Acute HFrEF (heart failure with reduced ejection fraction): Code(s): I50.21 - Acute systolic (congestive) heart failure (2) Interstitial lung disease: Code(s): J84.9 - Interstitial pulmonary disease, unspecified (3) COPD (chronic obstructive pulmonary disease): Code(s): J44.9 - Chronic obstructive pulmonary disease, unspecified (4) Pulmonary infiltrates: Code(s): R91.8 - Other nonspecific abnormal finding of lung field (5) Afib: Code(s): I48.91 - Unspecified atrial fibrillation (6) Sick sinus syndrome: Code(s): I49.5 - Sick sinus syndrome Plan # Acute respiratory failure 2/2 AE-CHF # Interstitial lung dx vs Organizing PNA on CT Chest # COPD on 2-3L O2 at home # Acute on chronic normocytic anemia - Is 7 on admission, baseline 9. May be renal dx related. # SSS s/p PPM # CKD 3 ? unclear what his baseline sCr is. # HTN ? well-controlled # Other: AFib, DM, VIRGILIO on CPAP, chronic indwelling Gomez catheter due to BPH. 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 Echo 05/11/24 - EF 20-25%, severely dilated LV with moderate LVH, midly dilated RV, mildly dilated LA, trace MR and TR, pacemaker. CXR 05/20/24 - Bilateral pulmonary edema with effusions. Chest CT 05/20/24 - scattered groundglass and septal thickening with small bilateral pleural effusions. Lexiscan 05/23/24- myocardial perfusion WNL no ischemia or infarction. Severely dilatd LV with apical hypokinesis. Reduced LV systolic function. LVEF=35%. -Continue supplemental O2 support. Wean as tolerated. -Reduce IV diuresis and switch to PO. -Treatment of underlying pulmonary process, antibiotics per primary team -GDMT: Coreg, valsartan, spironolactone. Consider SGLT2i later. -On Eliquis for AFib. -Follow up outpatient with Bobbi. -No further recommendations per cardiology today Documented By: Shirley Harvey DO 05/25/24 1044 Signed By: <Electronically signed by Shirley Harvey DO> 05/25/24 1047 [facility] Work Phone: 1(519) 146-145603-06-2025 [place] [address] Cardiology Progress Note Signed Patient: Leighton Arciniega MR#: [id number] : 1945 Acct:[id number] Age/Sex: 78 / M Adm Date: 5 Loc: 3T Room: [address] [place] [address] Type: ADM IN Attending Dr: Richard Zamora DO Copies to: ~ Date of Service: 05/25/2024 Subjective Principal diagnosis: CHF management Interval history: Mr. Arciniega is a 78-year-old male who was admitted to [facility] on 05/19/2023 with hypoxic respiratory failure due to pneumonia and CHF. Chest x- rayyesterday shows bilateral opacities due to pneumonia versus CHF. [facility] was [facility] and underwent diuresis and eventual discharge to SNF. He was discharged on Bumex p.o. which he would have been getting atthe SNF. He has known CHF with an EF of 20-25%. Plans were made for outpatient stress MPI and his follow-up appointment at [facility] Cardiology was scheduled for 06/15/2024. However due to worsening respiratory function he is nowreadmitted to the hospital. He was stabilized on BiPAP. Continues to have some coughing but is feeling better. Last LHC was normal but was at [facility] in 2012. Interim evaluation 05/21/2024: No acute events. Resp status has greatly improved. He is on 4L O2 today and says he is on 2-3L O2 at home. Is on bumex gtt. Net neg -1844ml yesterday. Interim evaluation 05/22/2024: Patient is sitting in chair when I enter the room. He reports he is feeling better today. He denies chest pain, shortness of breath. He denies other complaints. Labs, imaging, monitor record reviewed today. Hemoglobin 7.9 today, stable fromyesterday, however baseline is 9. Kidney function stable from yesterday, BUN 59, creatinine 1.90, potassium 3.7. Magnesium 1.6. Ferritin elevated to 717. Chest CT from May 20 shows scattered areas of groundglass and septal thickeningwith small bilateral pleural effusion. Findings may relate to CHF/pulmonary edema or atypical infectious process. Monitor record shows A-fib with normal ventricular rate, IVCD. Stress test is scheduled for tomorrow. Depending on results, patient may requireevaluation/intervention with cath. No further recommendations per cardiology at this time. Attending note: Patient up to chair, doing well, seen and evaluated in conjunction with Dr. Helms with critical care/Dr. Willams. There is concern of pneumonitis and therefore IV steroids initiated, acute on chronic anemia noted, severe LV dysfunction by recent echo from last admission also n oted. Stress perfusion imaging to perform this hospitalization. All the abovediscussed with patientand family members Interim evaluation 05/23/2024: Patient is sitting up in chair manage the room. Hereports feeling welltoday. He denies chest pain, shortness of breath. He denies other complaints. Labs, monitor record reviewed today. Hemoglobin 8, stable. Kidney function stable from yesterday, BUN 77, creatinine 1.78, potassium 3.7. Glucose 245. Monitor record shows A-fib with normal ventricularrate, pacemaker present. Stress test revealed ejection fraction 35%. Final report to follow. Will reassess after results. Interim evaluation 05/24/2024: Patient is lying comfortably in bed when I enter the room. He is feeling well today and denies chest pain, shortness of breath, or other complaints. Labs, imaging, monitor record reviewed today. Kidney function declining, BUN 83, Cr 1.91, potassium 3.6. Monitor record shows A-fib with normal ventricular rate, pacemaker present. Lexiscan reviewed: myocardial perfusion WNL no ischemia or infarction. Severely dilatd LV with apical hypokinesis. Reduced LV systolic function. LVEF=35%. Attending note patient seen and evaluated with Dr. Capone, serum creatinine climbing with IV loop diuresis I believe we could switch over to oral diuresis at this juncture, chronic atrial fibrillation noted and stress perfusion exam with no ischemia, severely dilated LV with reduced ejection fraction of 35%. Clinically he still has dyspnea at rest with fine bibasilar crackles and no wheezes. Will schedule follow-up with Dr. Dickinson, continue current therapies but again recommend switching over to oral diuresis Interim evaluation 05/25/2024: Patient up to chair this morning, comfortable, mildconversational dyspnea noted with persistent dry crackles on exam. Creatinine is down to 1.51, greatly improved; chest x-ray dramatically better over the past5 days with steroids and furosemide. Still has interstitial bi basilar infiltrates. As mentioned above, will arrange cardiology follow-up following discharge from rehab, continue withoral furosemide; pulmonary follow-up Exam Physical Exam Vital Signs: Temp Pulse Resp BP Pulse Ox O2 Del Method O2 Flow Rate 97.7 F 70 14 130/70 97 Nasal Cannula 2 05/25/24 08:45 05/25/24 08:45 05/25/24 04:00 05/25/24 08:45 05/25/24 08:45 05/25/24 08:48 05/25/24 08:48 FiO2 30 05/22/24 23:41 Objective Labs 05/25/24 05:44 05/25/24 05:44 Labs: Laboratory Results - last 24 hr 05/24/24 05/25/24 05/25/24 20:42 05:44 06:33 Corrected WBC 8.4 Uncorrected WBC Count 8.4 RBC 2.59 L Hgb 8.2 L Hct 23.9 L MCV 92.3 MCH 31.5 MCHC 34.1 RDW 16.2 H Plt Count 341 MPV 6.6 Neut % (Auto) 90.0 Lymph % (Auto) 5.6 [place] % (Auto) 4.1 Eos % (Auto) 0.0 Baso % (Auto) 0.3 Nucleat RBC Rel Count 0.2 Neut # (Auto) 7.6 Lymph # (Auto) 0.5 L [place] # (Auto) 0.3 Eos # (Auto) 0.0 Baso # (Auto) 0.0 Platelet Estimate Normal Plt Morphology Comment Normal RBC Morphology N/A Polychromasia Slight Hypochromasia Slight Anisocytosis Slight PHA Creatinine Clear 41.63 Sodium 140 Potassium 3.7 Chloride 104 Carbon Dioxide 29.8 Anion Gap 9.9 BUN 78 H Creatinine 1.51 H Est GFR (CKD-EPI) 46.982 Glucose 109 H POC Glucose 138 113 Calcium 8.4 L A&P - Cardiology (1) Acute HFrEF (heart failure with reduced ejection fraction): Code(s): I50.21 - Acute systolic (congestive) heart failure (2) Interstitial lung disease: Code(s): J84.9 - Interstitial pulmonary disease, unspecified (3) COPD (chronic obstructive pulmonary disease): Code(s): J44.9 - Chronic obstructive pulmonary disease, unspecified (4) Pulmonary infiltrates: Code(s): R91.8 - Other nonspecific abnormal finding of lung field (5) Afib: Code(s): I48.91 - Unspecified atrial fibrillation (6) Sick sinus syndrome: Code(s): I49.5 - Sick sinus syndrome Plan # Acute respiratory failure 2/2 AE-CHF # Interstitial lung dx vs Organizing PNA on CT Chest # COPD on 2-3L O2 at home # Acute on chronic normocytic anemia - Is 7 on admission, baseline 9. May be renal dx related. # SSS s/p PPM # CKD 3 ? unclear what his baseline sCr is. # HTN ? well-controlled # Other: AFib, DM, VIRGILIO on CPAP, chronic indwelling Gomez catheter due to BPH. 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 Echo 05/11/24 - EF 20-25%, severely dilated LV with moderate LVH, midly dilated RV, mildly dilated LA, trace MR and TR, pacemaker. CXR 05/20/24 - Bilateral pulmonary edema with effusions. Chest CT 05/20/24 - scattered groundglass and septal thickening with small bilateral pleural effusions. Lexiscan 05/23/24- myocardial perfusion WNL no ischemia or infarction. Severely dilatd LV with apicalhypokinesis. Reduced LV systolic function. LVEF=35%. -Continue supplemental O2 support. Wean as tolerated. -Reduce IV diuresis and switch to PO. -Treatment of underlying pulmonary process, antibiotics per primary team -GDMT: Coreg, valsartan, spironolactone. Consider SGLT2i later. -On Eliquis for AFib. -Follow up outpatient with Bobbi. -No further recommendations per cardiology today Documented By: Shirley Harvey DO 05/25/24 1044 Signed By: 05/25/24 1047 [facility]03-05-2025 Progress note Author Darshan Willams [facility] Note Date/Time May 24, 2024 5:49 pm [facility] [address] [place] [address] Pulmonology Progress Note Signed Patient: Leighton Arciniega MR#: [id number] : 1945 Acct:[id number] Age/Sex: 78 / M Adm Date: 5 Loc: 3T Room: 7B3825-0 Type: ADM IN Attending Dr: Richard Zamora DO Copies to: ~ Date of Service: 05/24/2024 Subjective Subjective Narrative: Patient reports feeling better. He denies cough nor sputum production. Exam Physical Exam Vital Signs: Temp Pulse Resp BP Pulse Ox O2 Del Method O2 Flow Rate 98.1 F 70 16 131/72 96 CPAP 4 05/22/24 16:53 05/24/24 06:32 05/24/24 06:32 05/24/24 06:32 05/24/24 06:32 05/24/24 06:32 05/24/24 00:00 FiO2 30 05/22/24 23:41 Const General: cooperative and not in acute distress Nutritional Appearance: average body habitus Orientation: alert and awake HEENT Head: normocephalic Ears: hearing grossly normal bilaterally and external ears normal Nose: external nose normal Face and sinus: normal facial exam Eyes Eyelids: eyelids normal Neck Neck: normal visual inspection Chest Chest palpation & inspection: normal inspection of the chest Resp Effort & Inspection: normal respiratory effort, able to speak in complete sentences and no use of accessory muscles Auscultation: crackles bilaterally at the base, no rhonchi and no wheezes Cardio Rate: regular rate Rhythm: abnormal rhythm irregularly irregular Heart Sounds: S1 normal and S2 normal GI Inspection: normal to inspection Palpation: soft Auscultation: hypoactive bowel sounds Rectal Exam: deferred General: deferred Skin Lesions: no lesions Rashes: no rashes Extrem General: no pedal edema Objective Intake and Output I&O - Last 24 Hours: Intake & Output 05/23/24 05/23/24 05/24/24 15:59 23:59 07:59 Intake Total 100 / 950 850 / 950 200 / 200 Output Total 1800 / 4100 1300 / 4100 850 / 850 Balance -1700 / -3150 -450 / -3150 -650 / -650 Weight 83.3 kg Labs 05/24/24 05:38 05/24/24 05:38 Microbiology Micro: Microbiology 3 05/22/24 11:32 MRSA Culture - Preliminary Nares, Left No MRSA Isolated 1 Day Assessment/Plan Assessment/Plan (1) Acute on chronic hypoxic respiratory failure: (2) Acute HFrEF (heart failure with reduced ejection fraction): (3) Hemoptysis: (4) Pulmonary infiltrates: (5) COPD (chronic obstructive pulmonary disease): (6) Obstructive sleep apnea: (7) Afib: (8) Chronic kidney disease: (9) Pacemaker: (10) Sick sinus syndrome: (11) Anemia: (12) Diabetes: Plan Hospital day #4 for patient with recurrent acute on chronic hypoxemic respiratory failure in the context of known ischemic cardiomyopathy and concernsfor volume overload but also with scattered groundglass opacity with areas of septal thickening with concerns for acute interstitial pneumonia versus ongoing interstitial lung disease * Patient's oxygen requirements are decreasing after aggressive diuresis with patient on solumedrol 40 mg IV every 12 hours * Repeat 2 view CXR tomorrow, if significant decrease in bilateral infiltrates, will taper steroids quickly as more likely this is response to diuresis. * Continue supportive care Documented By: Darshan Willams MD 5 [id number] Signed By: <Electronically signed by MD Darshan Willams> 05/24/24 3033 [facility] Work Phone: 1(555) 755-729003-05-2025 [place] [address] Pulmonology Progress Note Signed Patient: Leighton Arciniega MR#: [id number] : 1945 Acct:[id number] Age/Sex: 78 / M Adm Date: 5 Loc: Room: [address] [place] [address] Type: ADM IN Attending Dr: Richard Zamora DO Copies to: ~ Date of Service: 05/24/2024 Subjective Subjective Narrative: Patient reports feeling better. He denies cough nor sputum production. Exam Physical Exam Vital Signs: Temp Pulse Resp BP Pulse Ox O2 Del Method O2 Flow Rate 98.1 F 70 16 131/72 96 CPAP 4 05/22/24 16:53 05/24/24 06:32 05/24/24 06:32 05/24/24 06:32 05/24/24 06:32 05/24/24 06:32 05/24/24 00:00 FiO2 30 05/22/24 23:41 Const General: cooperative and not in acute distress Nutritional Appearance: average body habitus Orientation: alert and awake HEENT Head: normocephalic Ears: hearing grossly normal bilaterally and external ears normal Nose: external nose normal Face and sinus: normal facial exam Eyes Eyelids: eyelids normal Neck Neck: normal visual inspection Chest Chest palpation & inspection: normal inspection of the chest Resp Effort & Inspection: normal respiratory effort, able to speak in complete sentences and no use of accessory muscles Auscultation: crackles bilaterally at the base, no rhonchi and no wheezes Cardio Rate: regular rate Rhythm: abnormal rhythm irregularly irregular Heart Sounds: S1 normal and S2 normal GI Inspection: normal to inspection Palpation: soft Auscultation: hypoactive bowel sounds Rectal Exam: deferred General: deferred Skin Lesions: no lesions Rashes: no rashes Extrem General: no pedal edema Objective Intake and Output I&O - Last 24 Hours: Intake & Output 05/23/24 05/23/24 05/24/24 15:59 23:59 07:59 Intake Total 100 / 950 850 / 950 200 / 200 Output Total 1800 / 4100 1300 / 4100 850 / 850 Balance -1700 / -3150 -450 / -3150 -650 / -650 Weight 83.3 kg Labs 05/24/24 05:38 05/24/24 05:38 Microbiology Micro: Microbiology 3 05/22/24 11:32 MRSA Culture - Preliminary Nares, Left No MRSA Isolated 1 Day Assessment/Plan Assessment/Plan (1) Acute on chronic hypoxic respiratory failure: (2) Acute HFrEF (heart failure with reduced ejection fraction): (3) Hemoptysis: (4) Pulmonary infiltrates: (5) COPD (chronic obstructive pulmonary disease): (6) Obstructive sleep apnea: (7) Afib: (8) Chronic kidney disease: (9) Pacemaker: (10) Sick sinus syndrome: (11) Anemia: (12) Diabetes: Plan Hospital day #4 for patient with recurrent acute on chronic hypoxemic respiratory failure in the context of known ischemic cardiomyopathy and concernsfor volume overload but also with scattered groundglass opacity with areas of septal thickening with concerns for acute interstitial pneumonia versus ongoing interstitial lung disease * Patient's oxygen requirements are decreasing after aggressive diuresis with patient on [id number] mg IV every 12 hours * Repeat 2 view CXR tomorrow, if significant decrease in bilateral infiltrates, will taper steroidsquickly as more likely this is response to diuresis. * Continue supportive care Documented By: Darshan Willams MD 5 [id number] Signed By: 05/24/24 1849 [facility]03-05-2025 Progress note Author W Wes [facility] Note Date/Time May 24, 2024 3:34 pm [facility] [address] [place] [address] Cardiology Progress Note Signed Patient: Leighton Arciniega MR#: [id number] : 1945 Acct:[id number] Age/Sex: 78 / M Adm Date: 5 Loc: Room: [address] [place] [address] Type: ADM IN Attending Dr: Richard Zamora DO Copies to: ~ Date of Service: 05/24/2024 Subjective Principal diagnosis: CHF management Interval history: Mr. Arciniega is a 78-year-old male who was admitted to [facility] on 05/19/2023 with hypoxic respiratory failure due to pneumonia and CHF. Chest x-rayyesterday shows bilateral opacities due to pneumonia versus CHF. [facility] and underwent diuresis and eventual discharge to SNF. He was discharged on Bumex p.o. which he would have been getting at the SNF. He has known CHF with an EF of 20-25%. Plans were made for outpatient stress MPI and his follow-up appointment at [facility] Cardiology was scheduled for 06/15/2024. However due to worsening respiratory function he is nowreadmitted to the hospital. He was stabilized on BiPAP. Continues to have some coughing but is feeling better. Last [facility] was normal but was at [facility] in 2012. Interim evaluation 05/21/2024: No acute events. Resp status has greatly improved. He is on 4L O2 today and says he is on 2-3L O2 at home. Is on bumex gtt. Net neg -1844ml yesterday. Interim evaluation 05/22/2024: Patient is sitting in chair when I enter the room. He reports he is feeling better today. He denies chest pain, shortness of breath. He denies other complaints. Labs, imaging, monitor record reviewed today. Hemoglobin 7.9 today, stable fromyesterday, however baseline is 9. Kidney function stable from yesterday, BUN 59, creatinine 1.90, potassium 3.7. Magnesium 1.6. Ferritin elevated to 717. Chest CT from May 20 shows scattered areas of groundglass and septal thickeningwith small bilateral pleural effusion. Findings may relate to CHF/pulmonary edema or atypical infectious process. Monitor record shows A-fib with normal ventricular rate, IVCD. Stress test is scheduled for tomorrow. Depending on results, patient may requireevaluation/intervention with cath. No further recommendations per cardiology at this time. Attending note: Patient up to chair, doing well, seen and evaluated in conjunction with Dr. Capone and with critical care/Dr. Willams. There is concern of pneumonitis and therefore IV steroids initiated, acute on chronic anemia noted, severe LV dysfunction by recent echo from last admission also noted. Stress perfusion imaging to perform this hospitalization. All the abovediscussed with patient and family members Interim evaluation 05/23/2024: Patient is sitting up in chair manage the room. Hereports feeling well today. He denies chest pain, shortness of breath. He denies other complaints. Labs, monitor record reviewed today. Hemoglobin 8, stable. Kidney function stable from yesterday, BUN 77, creatinine 1.78, potassium 3.7. Glucose 245. Monitor record shows A-fib with normal ventricularrate, pacemaker present. Stress test revealed ejection fraction 35%. Final report to follow. Will reassess after results. Interim evaluation 05/24/2024: Patient is lying comfortably in bed when I enter the room. He is feeling well today and denies chest pain, shortness of breath, or other complaints. Labs, imaging, monitor record reviewed today. Kidney function declining, BUN 83, Cr 1.91, potassium 3.6. Monitor record shows A-fib with normal ventricular rate, pacemaker present. Lexiscan reviewed: myocardial perfusion WNL no ischemia or infarction. Severely dilatd LV with apical hypokinesis. Reduced LV systolic function. LVEF=35%. Attending note patient seen and evaluated with Dr. Murillo, serum creatinine climbing with IV loop diuresis I believe we could switch over to oral diuresis at this juncture, chronic atrial fibrillation noted and stress perfusion exam with no ischemia, severely dilated LV with reduced ejection fraction of 35%. Clinically he still has dyspnea at rest with fine bibasilar crackles and no wheezes. Will schedule follow-up with Dr. Dickinson, continue current therapies but again recommend switching over to oral diuresis Exam Physical Exam Vital Signs: Temp Pulse Resp BP Pulse Ox O2 Del Method O2 Flow Rate 97.5 F L 70 16 134/62 97 Nasal Cannula 4 05/24/24 08:32 05/24/24 11:18 05/24/24 11:18 05/24/24 11:18 05/24/24 11:18 05/24/24 11:18 05/24/24 11:18 FiO2 30 05/22/24 23:41 Narrative: General: Not in any acute distress Extremities: Normal to inspection. HEENT: Head normocephalic, atraumatic, face symmetrical. Pulm: Breathing normally without excessive effort on 4L NC. Bilateral crackles in lung bases Cardio: Rate controlled. Irregular rhythm. Musculoskeletal: Moves all extremities. Neuro: Patient alert, oriented x3. Speech movement normal Objective Labs 05/24/24 05:38 05/24/24 05:38 Labs: Laboratory Results - last 24 hr 05/20/24 05/21/24 05/23/24 13:45 05:33 18:26 Corrected WBC Uncorrected WBC Count RBC Hgb Hct MCV MCH MCHC RDW Plt Count MPV Neut % (Auto) Lymph % (Auto) [place] % (Auto) Eos % (Auto) Baso % (Auto) Nucleat RBC Rel Count Neut # (Auto) Lymph # (Auto) [place] # (Auto) Eos # (Auto) Baso # (Auto) PHA Creatinine Clear Sodium Potassium Chloride Carbon Dioxide Anion Gap BUN Creatinine Est GFR (CKD-EPI) Glucose POC Glucose 132 Calcium Procalcitonin 0.44 H MARKELL Profile Negative c-ANCA Antibody <1:20 Proteinase 3 (PR3) Ab <0.2 Atypical p-ANCA <1:20 p-ANCA Antibody <1:20 Anti-Myeloperoxidase <0.2 05/23/24 05/24/24 05/24/24 20:25 05:38 06:26 Corrected WBC 8.7 Uncorrected WBC Count 8.7 RBC 2.55 L Hgb 8.2 L Hct 23.8 L MCV 93.6 MCH 32.1 MCHC 34.3 RDW 16.1 H Plt Count 292 MPV 6.5 L Neut % (Auto) 91.0 Lymph % (Auto) 5.0 [place] % (Auto) 3.3 Eos % (Auto) 0.1 Baso % (Auto) 0.6 Nucleat RBC Rel Count 0.1 Neut # (Auto) 8.0 H Lymph # (Auto) 0.4 L [place] # (Auto) 0.3 Eos # (Auto) 0.0 Baso # (Auto) 0.0 PHA Creatinine Clear 32.91 Sodium 140 Potassium 3.6 Chloride 103 Carbon Dioxide 29.1 Anion Gap 11.5 BUN 83 H Creatinine 1.91 H Est GFR (CKD-EPI) 35.437 Glucose 170 H POC Glucose 204 185 Calcium 8.6 Procalcitonin MARKELL Profile c-ANCA Antibody Proteinase 3 (PR3) Ab Atypical p-ANCA p-ANCA Antibody Anti-Myeloperoxidase A&P - Cardiology (1) Acute HFrEF (heart failure with reduced ejection fraction): Code(s): I50.21 - Acute systolic (congestive) heart failure (2) Interstitial lung disease: Code(s): J84.9 - Interstitial pulmonary disease, unspecified (3) COPD (chronic obstructive pulmonary disease): Code(s): J44.9 - Chronic obstructive pulmonary disease, unspecified (4) Pulmonary infiltrates: Code(s): R91.8 - Other nonspecific abnormal finding of lung field (5) Afib: Code(s): I48.91 - Unspecified atrial fibrillation (6) Sick sinus syndrome: Code(s): I49.5 - Sick sinus syndrome Plan # Acute respiratory failure 2/2 AE-CHF # Interstitial lung dx vs Organizing PNA on CT Chest # COPD on 2-3L O2 at home # Acute on chronic normocytic anemia - Is 7 on admission, baseline 9. May be renal dx related. # SSS s/p PPM # CKD 3 ? unclear what his baseline sCr is. # HTN ? well-controlled # Other: AFib, DM, VIRGILIO on CPAP, chronic indwelling Gomez catheter due to BPH. 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 Echo 05/11/24 - EF 20-25%, severely dilated LV with moderate LVH, midly dilated RV, mildly dilated LA, trace MR and TR, pacemaker. CXR 05/20/24 - Bilateral pulmonary edema with effusions. Chest CT 05/20/24 - scattered groundglass and septal thickening with small bilateral pleural effusions. Lexiscan 05/23/24- myocardial perfusion WNL no ischemia or infarction. Severely dilatd LV with apical hypokinesis. Reduced LV systolic function. LVEF=35%. -Continue supplemental O2 support. Wean as tolerated. -Reduce IV diuresis and switch to PO. -Treatment of underlying pulmonary process, antibiotics per primary team -GDMT: Coreg, valsartan, spironolactone. Consider SGLT2i later. -On Eliquis for AFib. -Follow up outpatient with Bobbi. -No further recommendations per cardiology today Documented By: Shirley Harvey DO 05/24/24 1330 Signed By: <Electronically signed by Shirley Harvey DO> 05/24/24 1634 [facility] Work Phone: [phone]) 214-303503-05-2025 Progress note Author Shirley Harvey [facility] Note Date/Time May 24, 2024 3:33 pm [facility] [address] [place] [address] Cardiology Progress Note Signed Patient: Leighton Arciniega MR#: [id number] : 1945 Acct:[id number] Age/Sex: 78 / M Adm Date: 5 Loc: Room: [address] [place] [address] Type: ADM IN Attending Dr: Richard Zamora DO Copies to: ~ Date of Service: 05/23/2024 Subjective Principal diagnosis: CHF management Interval history: Mr. Arciniega is a 78-year-old male who was admitted to [facility] on 05/19/2023 with hypoxic respiratory failure due to pneumonia and CHF. Chest x-rayyesterday shows bilateral opacities due to pneumonia versus CHF. [facility] was [facility] and underwent diuresis and eventual discharge to SNF. He was discharged on Bumex p.o. which he would have been getting at the SNF. He has known CHF with an EF of 20-25%. Plans were made for outpatient stress MPI and his follow-up appointment at [facility] Cardiology was scheduled for 06/15/2024. However due to worsening respiratory function he is nowreadmitted to the hospital. He was stabilized on BiPAP. Continues to have some coughing but is feeling better. Last [facility] was normal but was at [facility] in 2012. Interim evaluation 05/21/2024: No acute events. Resp status has greatly improved. He is on 4L O2 today and says he is on 2-3L O2 at home. Is on bumex gtt. Net neg -1844ml yesterday. Interim evaluation 05/22/2024: Patient is sitting in chair when I enter the room. He reports he is feeling better today. He denies chest pain, shortness of breath. He denies other complaints. Labs, imaging, monitor record reviewed today. Hemoglobin 7.9 today, stable fromyesterday, however baseline is 9. Kidney function stable from yesterday, BUN 59, creatinine 1.90, potassium 3.7. Magnesium 1.6. Ferritin elevated to 717. Chest CT from May 20 shows scattered areas of groundglass and septal thickeningwith small bilateral pleural effusion. Findings may relate to CHF/pulmonary edema or atypical infectious process. Monitor record shows A-fib with normal ventricular rate, IVCD. Stress test is scheduled for tomorrow. Depending on results, patient may requireevaluation/intervention with cath. No further recommendations per cardiology at this time. Attending note: Patient up to chair, doing well, seen and evaluated in conjunction with Dr. Capone and with critical care/Dr. Willams. There is concern of pneumonitis and therefore IV steroids initiated, acute on chronic anemia noted, severe LV dysfunction by recent echo from last admission also noted. Stress perfusion imaging to perform this hospitalization. All the abovediscussed with patient and family members Interim evaluation 05/23/2024: Patient is sitting up in chair manage the room. Hereports feeling well today. He denies chest pain, shortness of breath. He denies other complaints. Labs, monitor record reviewed today. Hemoglobin 8, stable. Kidney function stable from yesterday, BUN 77, creatinine 1.78, potassium 3.7. Glucose 245. Monitor record shows A-fib with normal ventricular rate, pacemaker present. Stress test revealed ejection fraction 35%. Final report to follow. Will reassess after results. Attending note patient seen and evaluated with Dr. Capone, he is doing better from a breathing standpoint, stress imaging and ejection fraction noted. Continue with ongoing supportive care Exam Physical Exam Vital Signs: Temp Pulse Resp BP Pulse Ox O2 Del Method O2 Flow Rate 98.1 F 70 18 149/68 H 98 CPAP 4 05/22/24 16:53 05/23/24 09:08 05/23/24 04:19 05/23/24 09:08 05/23/24 04:19 05/23/24 04:19 05/22/24 22:00 FiO2 30 05/22/24 23:41 Narrative: General: Not in any acute distress Extremities: Normal to inspection. HEENT: Head normocephalic, atraumatic, face symmetrical. Pulm: Breathing normally without excessive effort Cardio: Rate controlled. Irregular rhythm. Musculoskeletal: Moves all extremities. Neuro: Patient alert, oriented x3. Speech movement normal Objective Labs 05/24/24 05:38 05/24/24 05:38 Labs: Laboratory Results - last 24 hr 05/22/24 05/22/24 05/22/24 16:53 18:21 20:49 Corrected WBC Uncorrected WBC Count RBC Hgb Hct MCV MCH MCHC RDW Plt Count MPV Neut % (Auto) Lymph % (Auto) [place] % (Auto) Eos % (Auto) Baso % (Auto) Nucleat RBC Rel Count Neut # (Auto) Lymph # (Auto) [place] # (Auto) Eos # (Auto) Baso # (Auto) PHA Creatinine Clear Sodium Potassium Chloride Carbon Dioxide Anion Gap BUN Creatinine Est GFR (CKD-EPI) Glucose POC Glucose 253 358 367 POC Glucose Comment Glu2: cleaned meter Calcium 05/23/24 05/23/24 05:13 06:23 Corrected WBC 7.7 Uncorrected WBC Count 7.7 RBC 2.51 L Hgb 8.0 L Hct 23.3 L MCV 92.6 MCH 31.9 MCHC 34.5 RDW 15.6 H Plt Count 239 MPV 7.2 Neut % (Auto) 91.7 Lymph % (Auto) 4.2 [place] % (Auto) 3.9 Eos % (Auto) 0.0 Baso % (Auto) 0.2 Nucleat RBC Rel Count 0.1 Neut # (Auto) 7.1 Lymph # (Auto) 0.3 L [place] # (Auto) 0.3 Eos # (Auto) 0.0 Baso # (Auto) 0.0 PHA Creatinine Clear 35.32 Sodium 142 Potassium 3.7 Chloride 103 Carbon Dioxide 29.2 Anion Gap 13.5 BUN 77 H Creatinine 1.78 H Est GFR (CKD-EPI) 38.565 Glucose 245 H POC Glucose 298 POC Glucose Comment Calcium 8.5 L A&P - Cardiology (1) Acute HFrEF (heart failure with reduced ejection fraction): Code(s): I50.21 - Acute systolic (congestive) heart failure (2) Interstitial lung disease: Code(s): J84.9 - Interstitial pulmonary disease, unspecified (3) COPD (chronic obstructive pulmonary disease): Code(s): J44.9 - Chronic obstructive pulmonary disease, unspecified (4) Pulmonary infiltrates: Code(s): R91.8 - Other nonspecific abnormal finding of lung field (5) Afib: Code(s): I48.91 - Unspecified atrial fibrillation (6) Sick sinus syndrome: Code(s): I49.5 - Sick sinus syndrome Plan # Acute respiratory failure 2/2 AE-CHF # Interstitial lung dx vs Organizing PNA on CT Chest # COPD on 2-3L O2 at home # Acute on chronic normocytic anemia - Is 7 on admission, baseline 9. May be renal dx related. # SSS s/p PPM # CKD 3 ? unclear what his baseline sCr is. # HTN ? well-controlled # Other: AFib, DM, VIRGILIO on CPAP, chronic indwelling Gomez catheter due to BPH. Primary tandem mill sticker: [facility] in 2012 at [facility] - was normal per notes. Echo 05/11/24 - EF 20-25%, severely dilated LV with moderate LVH, midly dilated RV, mildly dilated LA, trace MR and TR, pacemaker. CXR 05/20/24 - Bilateral pulmonary edema with effusions. Chest CT 05/20/24 - scattered groundglass and septal thickening with small bilateral pleural effusions. -Continue supplemental O2 support. Wean as tolerated. -Continue diuresis with Bumex -GDMT: Coreg, valsartan, spironolactone. Consider SGLT2i later. -On Eliquis for AFib. -Continue antibiotics per primary team. -Lexiscan showed ejection fraction 35%. Final report to follow. Will reevaluate after results. -No further recommendations per cardiology today Documented By: Shirley Harvey DO 05/23/24 1216 Signed By: <Electronically signed by Shirley Harvey DO> 05/24/24 6071 [facility] Work Phone: [phone]) 693-353203-05-2025 Progress note Author Richard Zamora [facility] Note Date/Time May 24, 2024 1:58 pm [facility] [address] [place] [address] Hospitalist Progress Note Signed Patient: Leighton Arciniega MR#: [id number] : 1945 Acct:[id number] Age/Sex: 78 / M Adm Date: 5 Loc: 3T Room: [address] [place] [address] Type: ADM IN Attending Dr: Richard Zamora DO Copies to: ~ Date of Service: 05/24/2024 Subjective Subjective Narrative: Pt observed sitting up in a chair today. He is feeling well and has no complaints. He had trouble sleeping last night due to be anxious about the things he is not doing while in the hospital, he requested some melatonin to help him sleep. Continues to be on 4L via nasal cannula. Exam: GENERAL: alert, oriented, comfortable HEENT: NC/AT CARDIOVASCULAR: Regular rate and irregular rhythm, symmetric palpable radial pulses RESPIRATORY: comfortable on 4L via NC, clear to auscultation bilaterally, crackles b/l ABDOMEN: Soft, non-tender, non-distended, normal bowel sounds EXTREMITIES: moving all extremities well. Well-perfused. +1 non pitting edema LEb/l SKIN: Intact, no rash, no trauma PSYCHIATRIC: Good eye contact, appropriate mood and affect, cooperative Exam Physical Exam Vital Signs: Temp Pulse Resp BP Pulse Ox O2 Del Method O2 Flow Rate 97.5 F L 70 16 142/62 H 94 L Nasal Cannula 4 05/24/24 08:32 05/24/24 08:32 05/24/24 08:32 05/24/24 08:32 05/24/24 08:32 05/24/24 08:32 05/24/24 08:32 FiO2 30 05/22/24 23:41 Objective Lab Results 05/24/24 05:38 05/24/24 05:38 Microbiology Results Microbiology 05/22/24 11:32 Nares, Left MRSA Culture - Final No MRSA Isolated 2 Days Meds Allergies and Active Meds Allergies fosinopril Allergy (Verified 05/09/24 19:59) SOB metoprolol Allergy (Verified 05/09/24 19:59) Hypotension strawberry Allergy (Verified 05/09/24 19:59) Rash Active Meds: Active Medications Generic Name Dose Route Start Last Admin Trade Name Freq PRN Reason Stop Dose Admin Acetaminophen 650 mg 05/20/24 03:03 05/21/24 21:25 Acetaminophen 325 Mg Tablet PO 05/20/25 03:02 650 mg Q6HR PRN Administration Pain Scale 1 - 3 or fever Albuterol 2.5 mg 05/20/24 05:49 Albuterol Neb 2.5 Mg/3 Ml Vial.Neb INHALATION 05/20/25 05:48 Q4H PRN shortness of breath or wheezing Allopurinol 300 mg 05/20/24 09:00 05/24/24 08:36 Allopurinol 300 Mg Tablet PO 05/20/25 08:59 300 mg DAILY BRYAN Administration Apixaban 5 mg 05/20/24 09:00 05/24/24 08:36 Apixaban 5 Mg Tablet PO 05/20/25 08:59 5 mg BID BRYAN Administration Aspirin 81 mg 05/21/24 09:00 05/21/24 08:01 Aspirin 81 Mg Tablet.Dr PO 05/21/25 08:59 81 mg Delacruz@0900 BRYAN Administration Atorvastatin Calcium 10 mg 05/21/24 21:00 05/23/24 20:20 Atorvastatin 10 Mg Tablet PO 05/21/25 20:59 10 mg QPM BRYAN Administration Calcium Carbonate 1 tab 05/22/24 14:00 05/24/24 08:36 Calcium Carbonate/Vitamin D3 500 Mg/200 Unit Tablet PO 05/22/25 13:59 1 tab DAILY BRYAN Administration Carvedilol 6.25 mg 05/20/24 08:00 05/24/24 08:36 Carvedilol 6.25 Mg Tablet PO 05/20/25 07:59 6.25 mg BID.WITH.MEALS BRYAN Administration Cyanocobalamin 1,000 mcg 05/23/24 09:00 05/24/24 08:36 Cyanocobalamin 1,000 Mcg Tablet PO 05/23/25 08:59 1,000 mcg DAILY BRYAN Administration Dapagliflozin 5 mg 05/24/24 09:00 05/24/24 08:36 Dapagliflozin 5 Mg Tablet PO 05/24/25 08:59 5 mg DAILY BRYAN Administration Dextrose 0 gm 05/20/24 03:54 Dextrose 50% In Water 25 Gm/50 Ml Syringe IV-PUSH 05/20/25 03:53 PRN PRN Hypoglycemia Doxycycline Hyclate 100 mg 05/20/24 21:00 05/24/24 08:35 Doxycycline Hyclate 100 Mg Tablet PO 100 mg BID BRYAN Administration Finasteride 5 mg 05/20/24 09:00 05/24/24 08:38 Finasteride 5 Mg Tablet PO 05/20/25 08:59 5 mg DAILY BRYAN Administration Furosemide 60 mg 05/24/24 09:00 05/24/24 08:37 Furosemide 100 Mg/10 Ml Vial IV-PUSH 05/24/25 08:59 60 mg TID BRYAN Administration Glucose 0 gm 05/20/24 03:54 Dextrose 40% Gel 15 Gm Tube PO 05/20/25 03:53 PRN PRN Hypoglycemia Ceftriaxone Sodium 1 gm in 50 mls @ 100 mls/hr 05/20/24 13:00 05/23/24 15:13 Rocephin IV 100 mls/hr Q24H BRYAN Administration Ferric Sodium Gluconate 270 mls @ 135 mls/hr 05/22/24 14:00 05/23/24 11:14 Complex 250 mg/ Sodium IV 05/25/24 10:59 135 mls/hr Chloride QAM BRYAN Administration Insulin Aspart 0 units 05/20/24 08:00 05/24/24 08:42 Insulin Aspart 300 Units/3 Ml SUBCUT 05/20/25 07:59 5 units TID.WM.HS BRYAN Administration Protocol Insulin Aspart 0 units 05/22/24 17:00 05/24/24 08:42 Insulin Aspart 300 Units/3 Ml SUBCUT 05/22/25 16:59 11 units TID.WITH.MEALS BRYAN Administration Protocol Insulin Glargine 35 units 05/23/24 21:00 05/24/24 08:38 Insulin Glargine 300 Units/3 Ml Insuln.Pen SUBCUT 05/23/25 20:59 35 units BID BRYAN Administration Linagliptin 5 mg 05/24/24 08:00 05/24/24 08:36 Linagliptin 5 Mg Tablet PO 05/24/25 07:59 5 mg DAILY.WITH.BKFAST BRYAN Administration Magnesium Oxide 400 mg 05/23/24 09:00 05/24/24 08:36 Magnesium Oxide 400 Mg Tablet PO 05/23/25 08:59 400 mg DAILY BRYAN Administration Melatonin 5 mg 05/20/24 03:03 05/23/24 20:20 Melatonin 5 Mg Tablet PO 05/20/25 03:02 5 mg QHS PRN Administration Insomnia Methylprednisolone Sodium Succinate 40 mg 05/21/24 21:00 05/24/24 08:37 Methylprednisolone Sod Succ/Pf 40 Mg/Ml (1ml) Vial IV-PUSH 05/21/25 20:59 40 mg Q12HR BRYAN Administration Multivitamins 1 tab 05/23/24 09:00 05/24/24 08:36 Multivitamin 1 Tab Tablet PO 05/23/25 08:59 1 tab DAILY BRYAN Administration Ondansetron HCl 4 mg 05/20/24 03:03 Ondansetron 4 Mg/2 Ml Vial IV-PUSH 05/20/25 03:02 Q8H PRN Nausea And Vomiting Pantoprazole Sodium 40 mg 05/20/24 09:00 05/24/24 08:37 Pantoprazole 40 Mg Tablet.Dr PO 05/20/25 08:59 40 mg DAILY BRYAN Administration Potassium Chloride 10 meq 05/21/24 13:00 05/24/24 08:37 Potassium Chloride Er 10 Meq Tablet.Er PO 05/21/25 12:59 10 meq DAILY BRYAN Administration Sodium Chloride 10 ml 05/20/24 04:57 05/23/24 10:34 Sodium Chloride 0.9 % 10 Ml Syringe IV-PUSH 05/20/25 04:56 10 ml PRN PRN Administration Flush Sodium Chloride 0 ml 05/22/24 09:23 Sodium Chloride 0.9 % 10 Ml Syringe IV-PUSH 05/22/25 09:22 PRN PRN Flush Spironolactone 12.5 mg 05/20/24 09:00 05/24/24 08:37 Spironolactone 12.5 Mg Tablet PO 05/20/25 08:59 12.5 mg DAILY BRYAN Administration Terazosin HCl 10 mg 05/20/24 22:00 05/23/24 20:20 Terazosin 5 Mg Capsule PO 05/20/25 21:59 10 mg HS BRYAN Administration Valsartan 40 mg 05/20/24 09:45 05/24/24 08:35 Valsartan 40 Mg Tablet PO 05/20/25 09:44 40 mg BID BRYAN Administration A&P - Hospitalist Assessment/Plan (1) Acute HFrEF (heart failure with reduced ejection fraction): (2) Chronic indwelling Gomez catheter: Plan: placed by urologist for urinary retention. Will maintain. (3) Chronic kidney disease: (4) Diabetes: (5) Hypomagnesemia: (6) Acute on chronic hypoxic respiratory failure: (7) Afib: Plan Assessment and Plan: 1. Acute on chronic HFrEF EF from echo in April 10-25%, repeat echo EF 35%. Pt not previously optimized on GDMTA due to CKD, SGLTi added will continue Continue Lasix, continue to monitor BMP adjust as needed based on Cr. Continue valsartan cardiology consult appreciated 2. Acute respiratory failure with hypoxia-currently on 4L via NC continue high flow, wean as tolerated Pulmonology following, ANCA panel pending, concerns for interstitial pneumonia vs ongoing interstitial lung disease continue IV corticosteroids with Solu-Medrol IV q12h continue ceftriaxone and doxycycline, 7 day course recommended. 05/24 is day 4 3. Chronic afib Continue Coreg and Eliquis 4. Anemia Anemia of chronic disease, elevated ESR and ferritin with low iron Iron infusion done 05/22, 05/23, 05/24 b12 and folate nl stool sample negative for occult blood 5. CKD stage III Cr baseline is 1.6 with good response to diuresis, cr elevated (05/24) at 1.91 BMP daily 6. DM2 with hyperglycemia due to corticosteroids hemoglobin A1c 7.5 long acting and short acting adjusted, will adjust daily. Carb coverage 1:5 7. Hypomagnesemia (05/22) 1.6 goal Mg>2.0 Code: DNRCCA with intubation DVT px: as above Diet: heart healthy 2 grams sodium. +++ +++ Today I have lowered his diuresis down to Lasix 60 mg IV 3 times a day. Will consider switching him to oral diuretic tomorrow. Today labs came back that the MARKELL is negative and his ANCA panel is negative. I saw and personally examined this patient on the date of the encounter. I agree with the documentation as written. I personally discussed the case and formulated the plan of care in conjunction with medical student who began this note, and made adjustments to this document at the time of my signature. - - - Richard Zamora DO. Internal Medicine + Hospitalist attending physician. Documented By: Richard Zamora DO [id number] Signed By: <Electronically signed by Richard Zamora DO> 05/24/24 1455 [facility] Work Phone: [phone]) 463-719903-05-2025 [place] [address] Cardiology Progress Note Signed Patient: Leighton Arciniega MR#: [id number] : 1945 Acct:[id number] Age/Sex: 78 / M Adm Date: 5 Loc: 3T Room: [address] [place] [address] Type: ADM IN Attending Dr: Richard Zamora DO Copies to: ~ Date of Service: 05/24/2024 Subjective Principal diagnosis: CHF management Interval history: Mr. Arciniega is a 78-year-old male who was admitted to [facility] on 05/19/2023 with hypoxic respiratory failure due to pneumonia and CHF. Chest x- rayyesterday shows bilateral opacities due to pneumonia versus CHF. [facility] and underwent diuresis and eventual discharge to SNF. He was discharged on Bumex p.o. which he would have been getting atthe SNF. He has known CHF with an EF of 20-25%. Plans were made for outpatient stress MPI and his follow-up appointment at [facility] Cardiology was scheduled for 06/15/2024. However due to worsening respiratory function he is nowreadmitted to the hospital. He was stabilized on BiPAP. Continues to have some coughing but is feeling better. Last [facility] was normal but was at [facility] in 2012. Interim evaluation 05/21/2024: No acute events. Resp status has greatly improved. He is on 4L O2 today and says he is on 2-3L O2 at home. Is on bumex gtt. Net neg -1844ml yesterday. Interim evaluation 05/22/2024: Patient is sitting in chair when I enter the room. He reports he is feeling better today. He denies chest pain, shortness of breath. He denies other complaints. Labs, imaging, monitor record reviewed today. Hemoglobin 7.9 today, stable fromyesterday, however baseline is 9. Kidney function stable from yesterday, BUN 59, creatinine 1.90, potassium 3.7. Magnesium 1.6. Ferritin elevated to 717. Chest CT from May 20 shows scattered areas of groundglass and septal thickeningwith small bilateral pleural effusion. Findings may relate to CHF/pulmonary edema or atypical infectious process. Monitor record shows A-fib with normal ventricular rate, IVCD. Stress test is scheduled for tomorrow. Depending on results, patient may requireevaluation/intervention with cath. No further recommendations per cardiology at this time. Attending note: Patient up to chair, doing well, seen and evaluated in conjunction with Dr. Helms with critical care/Dr. Willams. There is concern of pneumonitis and therefore IV steroids initiated, acute on chronic anemia noted, severe LV dysfunction by recent echo from last admission also n oted. Stress perfusion imaging to perform this hospitalization. All the abovediscussed with patientand family members Interim evaluation 05/23/2024: Patient is sitting up in chair manage the room. Hereports feeling welltoday. He denies chest pain, shortness of breath. He denies other complaints. Labs, monitor record reviewed today. Hemoglobin 8, stable. Kidney function stable from yesterday, BUN 77, creatinine 1.78, potassium 3.7. Glucose 245. Monitor record shows A-fib with normal ventricularrate, pacemaker present. Stress test revealed ejection fraction 35%. Final report to follow. Will reassess after results. Interim evaluation 05/24/2024: Patient is lying comfortably in bed when I enter the room. He is feeling well today and denies chest pain, shortness of breath, or other complaints. Labs, imaging, monitor record reviewed today. Kidney function declining, BUN 83, Cr 1.91, potassium 3.6. Monitor record shows A-fib with normal ventricular rate, pacemaker present. Lexiscan reviewed: myocardial perfusion WNL no ischemia or infarction. Severely dilatd LV with apical hypokinesis. Reduced LV systolic function. LVEF=35%. Attending note patient seen and evaluated with Dr. Murillo, serum creatinine climbing with IV loop diuresis I believe we could switch over to oral diuresis at this juncture, chronic atrial fibrillation noted and stress perfusion exam with no ischemia, severely dilated LV with reduced ejection fraction of 35%. Clinically he still has dyspnea at rest with fine bibasilar crackles and no wheezes. Will schedule follow-up with Dr. Dickinson, continue current therapies but again recommend switching over to oral diuresis Exam Physical Exam Vital Signs: Temp Pulse Resp BP Pulse Ox O2 Del Method O2 Flow Rate 97.5 F L 70 16 134/62 97 Nasal Cannula 4 05/24/24 08:32 05/24/24 11:18 05/24/24 11:18 05/24/24 11:18 05/24/24 11:18 05/24/24 11:18 05/24/24 11:18 FiO2 30 05/22/24 23:41 Narrative: General: Not in any acute distress Extremities: Normal to inspection. HEENT: Head normocephalic, atraumatic, face symmetrical. Pulm: Breathing normally without excessive effort on 4L NC. Bilateral crackles in lung bases Cardio: Rate controlled. Irregular rhythm. Musculoskeletal: Moves all extremities. Neuro: Patient alert, oriented x3. Speech movement normal Objective Labs 05/24/24 05:38 05/24/24 05:38 Labs: Laboratory Results - last 24 hr 05/20/24 05/21/24 05/23/24 13:45 05:33 18:26 Corrected WBC Uncorrected WBC Count RBC Hgb Hct MCV MCH MCHC RDW Plt Count MPV Neut % (Auto) Lymph % (Auto) [place] % (Auto) Eos % (Auto) Baso % (Auto) Nucleat RBC Rel Count Neut # (Auto) Lymph # (Auto) [place] # (Auto) Eos # (Auto) Baso # (Auto) PHA Creatinine Clear Sodium Potassium Chloride Carbon Dioxide Anion Gap BUN Creatinine Est GFR (CKD-EPI) Glucose POC Glucose 132 Calcium Procalcitonin 0.44 H MARKELL Profile Negative c-ANCA Antibody <1:20 Proteinase 3 (PR3) Ab <0.2 Atypical p-ANCA <1:20 p-ANCA Antibody <1:20 Anti-Myeloperoxidase <0.2 05/23/24 05/24/24 05/24/24 20:25 05:38 06:26 Corrected WBC 8.7 Uncorrected WBC Count 8.7 RBC 2.55 L Hgb 8.2 L Hct 23.8 L MCV 93.6 MCH 32.1 MCHC 34.3 RDW 16.1 H Plt Count 292 MPV 6.5 L Neut % (Auto) 91.0 Lymph % (Auto) 5.0 [place] % (Auto) 3.3 Eos % (Auto) 0.1 Baso % (Auto) 0.6 Nucleat RBC Rel Count 0.1 Neut # (Auto) 8.0 H Lymph # (Auto) 0.4 L [place] # (Auto) 0.3 Eos # (Auto) 0.0 Baso # (Auto) 0.0 PHA Creatinine Clear 32.91 Sodium 140 Potassium 3.6 Chloride 103 Carbon Dioxide 29.1 Anion Gap 11.5 BUN 83 H Creatinine 1.91 H Est GFR (CKD-EPI) 35.437 Glucose 170 H POC Glucose 204 185 Calcium 8.6 Procalcitonin MARKELL Profile c-ANCA Antibody Proteinase 3 (PR3) Ab Atypical p-ANCA p-ANCA Antibody Anti-Myeloperoxidase A&P - Cardiology (1) Acute HFrEF (heart failure with reduced ejection fraction): Code(s): I50.21 - Acute systolic (congestive) heart failure (2) Interstitial lung disease: Code(s): J84.9 - Interstitial pulmonary disease, unspecified (3) COPD (chronic obstructive pulmonary disease): Code(s): J44.9 - Chronic obstructive pulmonary disease, unspecified (4) Pulmonary infiltrates: Code(s): R91.8 - Other nonspecific abnormal finding of lung field (5) Afib: Code(s): I48.91 - Unspecified atrial fibrillation (6) Sick sinus syndrome: Code(s): I49.5 - Sick sinus syndrome Plan # Acute respiratory failure 2/2 AE-CHF # Interstitial lung dx vs Organizing PNA on CT Chest # COPD on 2-3L O2 at home # Acute on chronic normocytic anemia - Is 7 on admission, baseline 9. May be renal dx related. # SSS s/p PPM # CKD 3 ? unclear what his baseline sCr is. # HTN ? well-controlled # Other: AFib, DM, VIRGILIO on CPAP, chronic indwelling Gomez catheter due to BPH. 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 Echo 05/11/24 - EF 20-25%, severely dilated LV with moderate LVH, midly dilated RV, mildly dilated LA, trace MR and TR, pacemaker. CXR 05/20/24 - Bilateral pulmonary edema with effusions. Chest CT 05/20/24 - scattered groundglass and septal thickening with small bilateral pleural effusions. Lexiscan 05/23/24- myocardial perfusion WNL no ischemia or infarction. Severely dilatd LV with apicalhypokinesis. Reduced LV systolic function. LVEF=35%. -Continue supplemental O2 support. Wean as tolerated. -Reduce IV diuresis and switch to PO. -Treatment of underlying pulmonary process, antibiotics per primary team -GDMT: Coreg, valsartan, spironolactone. Consider SGLT2i later. -On Eliquis for AFib. -Follow up outpatient with Bobbi. -No further recommendations per cardiology today Documented By: Shirley Harvey DO 05/24/24 1330 Signed By: 05/24/24 1634 [facility]03-05-[address] [address] Cardiology Progress Note Signed Patient: Leighton Arciniega MR#: [id number] : 1945 Acct:[id number] Age/Sex: 78 / M Adm Date: 5 Loc: 3T Room: [address] [place] [address] Type: ADM IN Attending Dr: Richard Zamora DO Copies to: ~ Date of Service: 05/23/2024 Subjective Principal diagnosis: CHF management Interval history: Mr. Arciniega is a 78-year-old male who was admitted to [facility] on 05/19/2023 with hypoxic respiratory failure due to pneumonia and CHF. Chest x- rayyesterday shows bilateral opacities due to pneumonia versus CHF. [facility] was [facility] and underwent diuresis and eventual discharge to SNF. He was discharged on Bumex p.o. which he would have been getting atthe SNF. He has known CHF with an EF of 20-25%. Plans were made for outpatient stress MPI and his follow-up appointment at [facility] Cardiology was scheduled for 06/15/2024. However due to worsening respiratory function he is nowreadmitted to the hospital. He was stabilized on BiPAP. Continues to have some coughing but is feeling better. Last [facility] was normal but was at [facility] in 2012. Interim evaluation 05/21/2024: No acute events. Resp status has greatly improved. He is on 4L O2 today and says he is on 2-3L O2 at home. Is on bumex gtt. Net neg -1844ml yesterday. Interim evaluation 05/22/2024: Patient is sitting in chair when I enter the room. He reports he is feeling better today. He denies chest pain, shortness of breath. He denies other complaints. Labs, imaging, monitor record reviewed today. Hemoglobin 7.9 today, stable fromyesterday, however baseline is 9. Kidney function stable from yesterday, BUN 59, creatinine 1.90, potassium 3.7. Magnesium 1.6. Ferritin elevated to 717. Chest CT from May 20 shows scattered areas of groundglass and septal thickeningwith small bilateral pleural effusion. Findings may relate to CHF/pulmonary edema or atypical infectious process. Monitor record shows A-fib with normal ventricular rate, IVCD. Stress test is scheduled for tomorrow. Depending on results, patient may requireevaluation/intervention with cath. No further recommendations per cardiology at this time. Attending note: Patient up to chair, doing well, seen and evaluated in conjunction with Dr. Helms with critical care/Dr. Willams. There is concern of pneumonitis and therefore IV steroids initiated, acute on chronic anemia noted, severe LV dysfunction by recent echo from last admission also n oted. Stress perfusion imaging to perform this hospitalization. All the abovediscussed with patientand family members Interim evaluation 05/23/2024: Patient is sitting up in chair manage the room. Hereports feeling welltoday. He denies chest pain, shortness of breath. He denies other complaints. Labs, monitor record reviewed today. Hemoglobin 8, stable. Kidney function stable from yesterday, BUN 77, creatinine 1.78, potassium 3.7. Glucose 245. Monitor record shows A-fib with normal ventricular rate, pacemaker present. Stress test revealed ejection fraction 35%. Final report to follow. Will reassess after results. Attending note patient seen and evaluated with Dr. Capone, he is doing better from a breathing standpoint, stress imaging and ejection fraction noted. Continue with ongoing supportive care Exam Physical Exam Vital Signs: Temp Pulse Resp BP Pulse Ox O2 Del Method O2 Flow Rate 98.1 F 70 18 149/68 H 98 CPAP 4 05/22/24 16:53 05/23/24 09:08 05/23/24 04:19 05/23/24 09:08 05/23/24 04:19 05/23/24 04:19 05/22/24 22:00 FiO2 30 05/22/24 23:41 Narrative: General: Not in any acute distress Extremities: Normal to inspection. HEENT: Head normocephalic, atraumatic, face symmetrical. Pulm: Breathing normally without excessive effort Cardio: Rate controlled. Irregular rhythm. Musculoskeletal: Moves all extremities. Neuro: Patient alert, oriented x3. Speech movement normal Objective Labs 05/24/24 05:38 05/24/24 05:38 Labs: Laboratory Results - last 24 hr 05/22/24 05/22/24 05/22/24 16:53 18:21 20:49 Corrected WBC Uncorrected WBC Count RBC Hgb Hct MCV MCH MCHC RDW Plt Count MPV Neut % (Auto) Lymph % (Auto) [place] % (Auto) Eos % (Auto) Baso % (Auto) Nucleat RBC Rel Count Neut # (Auto) Lymph # (Auto) [place] # (Auto) Eos # (Auto) Baso # (Auto) PHA Creatinine Clear Sodium Potassium Chloride Carbon Dioxide Anion Gap BUN Creatinine Est GFR (CKD-EPI) Glucose POC Glucose 253 358 367 POC Glucose Comment Glu2: cleaned meter Calcium 05/23/24 05/23/24 05:13 06:23 Corrected WBC 7.7 Uncorrected WBC Count 7.7 RBC 2.51 L Hgb 8.0 L Hct 23.3 L MCV 92.6 MCH 31.9 MCHC 34.5 RDW 15.6 H Plt Count 239 MPV 7.2 Neut % (Auto) 91.7 Lymph % (Auto) 4.2 [place] % (Auto) 3.9 Eos % (Auto) 0.0 Baso % (Auto) 0.2 Nucleat RBC Rel Count 0.1 Neut # (Auto) 7.1 Lymph # (Auto) 0.3 L [place] # (Auto) 0.3 Eos # (Auto) 0.0 Baso # (Auto) 0.0 PHA Creatinine Clear 35.32 Sodium 142 Potassium 3.7 Chloride 103 Carbon Dioxide 29.2 Anion Gap 13.5 BUN 77 H Creatinine 1.78 H Est GFR (CKD-EPI) 38.565 Glucose 245 H POC Glucose 298 POC Glucose Comment Calcium 8.5 L A&P - Cardiology (1) Acute HFrEF (heart failure with reduced ejection fraction): Code(s): I50.21 - Acute systolic (congestive) heart failure (2) Interstitial lung disease: Code(s): J84.9 - Interstitial pulmonary disease, unspecified (3) COPD (chronic obstructive pulmonary disease): Code(s): J44.9 - Chronic obstructive pulmonary disease, unspecified (4) Pulmonary infiltrates: Code(s): R91.8 - Other nonspecific abnormal finding of lung field (5) Afib: Code(s): I48.91 - Unspecified atrial fibrillation (6) Sick sinus syndrome: Code(s): I49.5 - Sick sinus syndrome Plan # Acute respiratory failure 2/2 AE-CHF # Interstitial lung dx vs Organizing PNA on CT Chest # COPD on 2-3L O2 at home # Acute on chronic normocytic anemia - Is 7 on admission, baseline 9. May be renal dx related. # SSS s/p PPM # CKD 3 ? unclear what his baseline sCr is. # HTN ? well-controlled # Other: AFib, DM, VIRGILIO on CPAP, chronic indwelling Gomez catheter due to BPH. 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 Echo 05/11/24 - EF 20-25%, severely dilated LV with moderate LVH, midly dilated RV, mildly dilated LA, trace MR and TR, pacemaker. CXR 05/20/24 - Bilateral pulmonary edema with effusions. Chest CT 05/20/24 - scattered groundglass and septal thickening with small bilateral pleural effusions. -Continue supplemental O2 support. Wean as tolerated. -Continue diuresis with Bumex -GDMT: Coreg, valsartan, spironolactone. Consider SGLT2i later. -On Eliquis for AFib. -Continue antibiotics per primary team. -Lexiscan showed ejection fraction 35%. Final report to follow. Will reevaluate after results. -No further recommendations per cardiology today Documented By: Shirley Harvey DO 05/23/24 1216 Signed By: 05/24/24 [facility]3 [facility]03-05-2025 [place] [address] Hospitalist Progress Note Signed Patient: Leighton Arciniega MR#: [id number] : 1945 Acct:[id number] Age/Sex: 78 / M Adm Date: 5 Loc: 3T Room: [address] [place] [address] Type: ADM IN Attending Dr: Richard Zamora DO Copies to: ~ Date of Service: 05/24/2024 Subjective Subjective Narrative: Pt observed sitting up in a chair today. He is feeling well and has no complaints. He had trouble sleeping last night due to be anxious about the things he is not doing while in the hospital, he requested some melatonin to help him sleep. Continues to be on 4L via nasal cannula. Exam: GENERAL: alert, oriented, comfortable HEENT: NC/AT CARDIOVASCULAR: Regular rate and irregular rhythm, symmetric palpable radial pulses RESPIRATORY: comfortable on 4L via NC, clear to auscultation bilaterally, crackles b/l ABDOMEN: Soft, non-tender, non-distended, normal bowel sounds EXTREMITIES: moving all extremities well. Well-perfused. +1 non pitting edema LEb/l SKIN: Intact, no rash, no trauma PSYCHIATRIC: Good eye contact, appropriate mood and affect, cooperative Exam Physical Exam Vital Signs: Temp Pulse Resp BP Pulse Ox O2 Del Method O2 Flow Rate 97.5 F L 70 16 142/62 H 94 L Nasal Cannula 4 05/24/24 08:32 05/24/24 08:32 05/24/24 08:32 05/24/24 08:32 05/24/24 08:32 05/24/24 08:32 05/24/24 08:32 FiO2 30 05/22/24 23:41 Objective Lab Results 05/24/24 05:38 05/24/24 05:38 Microbiology Results Microbiology 05/22/24 11:32 Nares, Left MRSA Culture - Final No MRSA Isolated 2 Days Meds Allergies and Active Meds Allergies fosinopril Allergy (Verified 05/09/24 19:59) SOB metoprolol Allergy (Verified 05/09/24 19:59) Hypotension strawberry Allergy (Verified 05/09/24 19:59) Rash Active Meds: Active Medications Generic Name Dose Route Start Last Admin Trade Name Freq PRN Reason Stop Dose Admin Acetaminophen 650 mg 05/20/24 03:03 05/21/24 21:25 Acetaminophen 325 Mg Tablet PO 05/20/25 03:02 650 mg Q6HR PRN Administration Pain Scale 1 - 3 or fever Albuterol 2.5 mg 05/20/24 05:49 Albuterol Neb 2.5 Mg/3 Ml Vial.Neb INHALATION 05/20/25 05:48 Q4H PRN shortness of breath or wheezing Allopurinol 300 mg 05/20/24 09:00 05/24/24 08:36 Allopurinol 300 Mg Tablet PO 05/20/25 08:59 300 mg DAILY BRYAN Administration Apixaban 5 mg 05/20/24 09:00 05/24/24 08:36 Apixaban 5 Mg Tablet PO 05/20/25 08:59 5 mg BID BRYAN Administration Aspirin 81 mg 05/21/24 09:00 05/21/24 08:01 Aspirin 81 Mg Tablet. PO 05/21/25 08:59 81 mg [email or web address]@0900 BRYAN Administration Atorvastatin Calcium 10 mg 05/21/24 21:00 05/23/24 20:20 Atorvastatin 10 Mg Tablet PO 05/21/25 20:59 10 mg QPM BRYAN Administration Calcium Carbonate 1 tab 05/22/24 14:00 05/24/24 08:36 Calcium Carbonate/Vitamin D3 500 Mg/200 Unit Tablet PO 05/22/25 13:59 1 tab DAILY BRYAN Administration Carvedilol 6.25 mg 05/20/24 08:00 05/24/24 08:36 Carvedilol 6.25 Mg Tablet PO 05/20/25 07:59 6.25 mg BID.WITH.MEALS BRYAN Administration Cyanocobalamin 1,000 mcg 05/23/24 09:00 05/24/24 08:36 Cyanocobalamin 1,000 Mcg Tablet PO 05/23/25 08:59 1,000 mcg DAILY BRYAN Administration Dapagliflozin 5 mg 05/24/24 09:00 05/24/24 08:36 Dapagliflozin 5 Mg Tablet PO 05/24/25 08:59 5 mg DAILY BRYAN Administration Dextrose 0 gm 05/20/24 03:54 Dextrose 50% In Water 25 Gm/50 Ml Syringe IV-PUSH 05/20/25 03:53 PRN PRN Hypoglycemia Doxycycline Hyclate 100 mg 05/20/24 21:00 05/24/24 08:35 Doxycycline Hyclate 100 Mg Tablet PO 100 mg BID BRYAN Administration Finasteride 5 mg 05/20/24 09:00 05/24/24 08:38 Finasteride 5 Mg Tablet PO 05/20/25 08:59 5 mg DAILY BRYAN Administration Furosemide 60 mg 05/24/24 09:00 05/24/24 08:37 Furosemide 100 Mg/10 Ml Vial IV-PUSH 05/24/25 08:59 60 mg TID BRYAN Administration Glucose 0 gm 05/20/24 03:54 Dextrose 40% Gel 15 Gm Tube PO 05/20/25 03:53 PRN PRN Hypoglycemia Ceftriaxone Sodium 1 gm in 50 mls @ 100 mls/hr 05/20/24 13:00 05/23/24 15:13 Rocephin IV 100 mls/hr Q24H BRYAN Administration Ferric Sodium Gluconate 270 mls @ 135 mls/hr 05/22/24 14:00 05/23/24 11:14 Complex 250 mg/ Sodium IV 05/25/24 10:59 135 mls/hr Chloride QAM BRYAN Administration Insulin Aspart 0 units 05/20/24 08:00 05/24/24 08:42 Insulin Aspart 300 Units/3 Ml SUBCUT 05/20/25 07:59 5 units TID.WM.HS BRYAN Administration Protocol Insulin Aspart 0 units 05/22/24 17:00 05/24/24 08:42 Insulin Aspart 300 Units/3 Ml SUBCUT 05/22/25 16:59 11 units TID.WITH.MEALS BRYAN Administration Protocol Insulin Glargine 35 units 05/23/24 21:00 05/24/24 08:38 Insulin Glargine 300 Units/3 Ml Insuln.Pen SUBCUT 05/23/25 20:59 35 units BID BRYAN Administration Linagliptin 5 mg 05/24/24 08:00 05/24/24 08:36 Linagliptin 5 Mg Tablet PO 05/24/25 07:59 5 mg DAILY.WITH.BKFAST BRYAN Administration Magnesium Oxide 400 mg 05/23/24 09:00 05/24/24 08:36 Magnesium Oxide 400 Mg Tablet PO 05/23/25 08:59 400 mg DAILY BRYAN Administration Melatonin 5 mg 05/20/24 03:03 05/23/24 20:20 Melatonin 5 Mg Tablet PO 05/20/25 03:02 5 mg QHS PRN Administration Insomnia Methylprednisolone Sodium Succinate 40 mg 05/21/24 21:00 05/24/24 08:37 Methylprednisolone Sod Succ/Pf 40 Mg/Ml (1ml) Vial IV-PUSH 05/21/25 20:59 40 mg Q12HR BRYAN Administration Multivitamins 1 tab 05/23/24 09:00 05/24/24 08:36 Multivitamin 1 Tab Tablet PO 05/23/25 08:59 1 tab DAILY BRYAN Administration Ondansetron HCl 4 mg 05/20/24 03:03 Ondansetron 4 Mg/2 Ml Vial IV-PUSH 05/20/25 03:02 Q8H PRN Nausea And Vomiting Pantoprazole Sodium 40 mg 05/20/24 09:00 05/24/24 08:37 Pantoprazole 40 Mg Tablet.Dr PO 05/20/25 08:59 40 mg DAILY BRYAN Administration Potassium Chloride 10 meq 05/21/24 13:00 05/24/24 08:37 Potassium Chloride Er 10 Meq Tablet.Er PO 05/21/25 12:59 10 meq DAILY BRAYN Administration Sodium Chloride 10 ml 05/20/24 04:57 05/23/24 10:34 Sodium Chloride 0.9 % 10 Ml Syringe IV-PUSH 05/20/25 04:56 10 ml PRN PRN Administration Flush Sodium Chloride 0 ml 05/22/24 09:23 Sodium Chloride 0.9 % 10 Ml Syringe IV-PUSH 05/22/25 09:22 PRN PRN Flush Spironolactone 12.5 mg 05/20/24 09:00 05/24/24 08:37 Spironolactone 12.5 Mg Tablet PO 05/20/25 08:59 12.5 mg DAILY BRYAN Administration Terazosin HCl 10 mg 05/20/24 22:00 05/23/24 20:20 Terazosin 5 Mg Capsule PO 05/20/25 21:59 10 mg HS BRYAN Administration Valsartan 40 mg 05/20/24 09:45 05/24/24 08:35 Valsartan 40 Mg Tablet PO 05/20/25 09:44 40 mg BID BRYAN Administration A&P - Hospitalist Assessment/Plan (1) Acute HFrEF (heart failure with reduced ejection fraction): (2) Chronic indwelling Gomez catheter: Plan: placed by urologist for urinary retention. Will maintain. (3) Chronic kidney disease: (4) Diabetes: (5) Hypomagnesemia: (6) Acute on chronic hypoxic respiratory failure: (7) Afib: Plan Assessment and Plan: 1. Acute on chronic HFrEF EF from echo in March 20-25%, repeat echo EF 35%. Pt not previously optimized on GDMTA due to CKD, SGLTi added will continue Continue Lasix, continue to monitor BMP adjust as needed based on Cr. Continue valsartan cardiology consult appreciated 2. Acute respiratory failure with hypoxia-currently on 4L via NC continue high flow, wean as tolerated Pulmonology following, ANCA panel pending, concerns for interstitial pneumonia vs ongoing interstitial lung disease continue IV corticosteroids with Solu-Medrol IV q12h continue ceftriaxone and doxycycline, 7 day course recommended. 05/24 is day 4 3. Chronic afib Continue Coreg and Eliquis 4. Anemia Anemia of chronic disease, elevated ESR and ferritin with low iron Iron infusion done 05/22, 05/23, 05/24 b12 and folate nl stool sample negative for occult blood 5. CKD stage III Cr baseline is 1.6 with good response to diuresis, cr elevated (05/24) at 1.91 BMP daily 6. DM2 with hyperglycemia due to corticosteroids hemoglobin A1c 7.5 long acting and short acting adjusted, will adjust daily. Carb coverage 1:5 7. Hypomagnesemia (05/22) 1.6 goal Mg>2.0 Code: DNRCCA with intubation DVT px: as above Diet: heart healthy 2 grams sodium. +++ +++ Today I have lowered his diuresis down to Lasix 60 mg IV 3 times a day. Will consider switching himto oral diuretic tomorrow. Today labs came back that the MARKELL is negative and his ANCA panel is negative. I saw and personally examined this patient on the date of the encounter. I agree with the documentation as written. I personally discussed the case and formulated the plan of care in conjunction withmedical student who began this note, and made adjustments to this document at the time of my signature. - - - Richard Zamora DO. Internal Medicine + Hospitalist attending physician. Documented By: Richard Zamora DO [id number] Signed By: 05/24/24 1458 [facility]03-04-2025 Progress note Author Richard Zamora [facility] Note Date/Time May 23, 2024 4:42 pm [facility] [address] [place] [address] Hospitalist Progress Note Signed Patient: Leighton Arciniega MR#: [id number] : 1945 Acct:[id number] Age/Sex: 78 / M Adm Date: 5 Loc: Room: [address] [place] [address] Type: ADM IN Attending Dr: Richard Zamora DO Copies to: ~ Date of Service: 05/23/2024 Subjective Subjective Narrative: Pt observed sitting up in chair today. He says he is feeling well and his breathing feels better today. He is tired from the stress test earlier today as well as PT/OT. Exam: GENERAL: alert, oriented, comfortable HEENT: NC/AT CARDIOVASCULAR: Regular rate and irregular rhythm, symmetric palpable radial pulses RESPIRATORY: comfortable on 4L via NC, basilar crackles b/l ABDOMEN: Soft, non-tender, non-distended, normal bowel sounds EXTREMITIES: moving all extremities well. Well-perfused. +1 nonpitting pedal edema SKIN: Intact, no rash, no trauma PSYCHIATRIC:appropriate mood and affect, cooperative Exam Physical Exam Vital Signs: Temp Pulse Resp BP Pulse Ox O2 Del Method O2 Flow Rate 98.1 F 70 18 149/68 H 98 Nasal Cannula 4 05/22/24 16:53 05/23/24 09:08 05/23/24 04:19 05/23/24 09:08 05/23/24 04:19 05/23/24 08:00 05/23/24 08:00 FiO2 30 05/22/24 23:41 Objective Lab Results 05/23/24 05:13 05/23/24 05:13 Microbiology Results Microbiology 05/22/24 11:32 Nares, Left MRSA Culture - Preliminary No MRSA Isolated 1 Day Meds Allergies and Active Meds Allergies fosinopril Allergy (Verified 05/09/24 19:59) SOB metoprolol Allergy (Verified 05/09/24 19:59) Hypotension strawberry Allergy (Verified 05/09/24 19:59) Rash Active Meds: Active Medications Generic Name Dose Route Start Last Admin Trade Name Freq PRN Reason Stop Dose Admin Acetaminophen 650 mg 05/20/24 03:03 05/21/24 21:25 Acetaminophen 325 Mg Tablet PO 05/20/25 03:02 650 mg Q6HR PRN Administration Pain Scale 1 - 3 or fever Albuterol 2.5 mg 05/20/24 05:49 Albuterol Neb 2.5 Mg/3 Ml Vial.Neb INHALATION 05/20/25 05:48 Q4H PRN shortness of breath or wheezing Allopurinol 300 mg 05/20/24 09:00 05/23/24 10:14 Allopurinol 300 Mg Tablet PO 05/20/25 08:59 300 mg DAILY BRYAN Administration Apixaban 5 mg 05/20/24 09:00 05/23/24 10:15 Apixaban 5 Mg Tablet PO 05/20/25 08:59 5 mg BID BRYAN Administration Aspirin 81 mg 05/21/24 09:00 05/21/24 08:01 Aspirin 81 Mg Tablet. PO 05/21/25 08:59 81 mg Delacruz@0900 BRYAN Administration Atorvastatin Calcium 10 mg 05/21/24 21:00 05/22/24 20:35 Atorvastatin 10 Mg Tablet PO 05/21/25 20:59 10 mg QPM BRYAN Administration Calcium Carbonate 1 tab 05/22/24 14:00 05/23/24 10:15 Calcium Carbonate/Vitamin D3 500 Mg/200 Unit Tablet PO 05/22/25 13:59 1 tab DAILY BRYAN Administration Carvedilol 6.25 mg 05/20/24 08:00 05/23/24 10:15 Carvedilol 6.25 Mg Tablet PO 05/20/25 07:59 6.25 mg BID.WITH.MEALS BRYAN Administration Cyanocobalamin 1,000 mcg 05/23/24 09:00 05/23/24 10:14 Cyanocobalamin 1,000 Mcg Tablet PO 05/23/25 08:59 1,000 mcg DAILY BRYAN Administration Dapagliflozin 5 mg 05/24/24 09:00 Dapagliflozin 5 Mg Tablet PO 05/24/25 08:59 DAILY BRYAN Dextrose 0 gm 05/20/24 03:54 Dextrose 50% In Water 25 Gm/50 Ml Syringe IV-PUSH 05/20/25 03:53 PRN PRN Hypoglycemia Doxycycline Hyclate 100 mg 05/20/24 21:00 05/23/24 10:14 Doxycycline Hyclate 100 Mg Tablet PO 100 mg BID BRYAN Administration Finasteride 5 mg 05/20/24 09:00 05/23/24 10:10 Finasteride 5 Mg Tablet PO 05/20/25 08:59 5 mg DAILY BRYAN Administration Furosemide 80 mg 05/24/24 08:00 Furosemide 100 Mg/10 Ml Vial IV-PUSH 05/24/25 07:59 TID BRYAN Glucose 0 gm 05/20/24 03:54 Dextrose 40% Gel 15 Gm Tube PO 05/20/25 03:53 PRN PRN Hypoglycemia Ceftriaxone Sodium 1 gm in 50 mls @ 100 mls/hr 05/20/24 13:00 05/23/24 15:13 Rocephin IV 100 mls/hr Q24H BRYAN Administration Ferric Sodium Gluconate 270 mls @ 135 mls/hr 05/22/24 14:00 05/23/24 11:14 Complex 250 mg/ Sodium IV 05/25/24 10:59 135 mls/hr Chloride QAM BRYAN Administration Insulin Aspart 0 units 05/20/24 08:00 05/23/24 11:37 Insulin Aspart 300 Units/3 Ml SUBCUT 05/20/25 07:59 24 units TID.WM.HS BRYAN Administration Protocol Insulin Aspart 0 units 05/22/24 17:00 05/23/24 14:17 Insulin Aspart 300 Units/3 Ml SUBCUT 05/22/25 16:59 6 units TID.WITH.MEALS BRYAN Administration Protocol Insulin Glargine 35 units 05/23/24 21:00 Insulin Glargine 300 Units/3 Ml Insuln.Pen SUBCUT 05/23/25 20:59 BID BRYAN Magnesium Oxide 400 mg 05/23/24 09:00 05/23/24 10:15 Magnesium Oxide 400 Mg Tablet PO 05/23/25 08:59 400 mg DAILY BRYAN Administration Melatonin 5 mg 05/20/24 03:03 05/21/24 21:26 Melatonin 5 Mg Tablet PO 05/20/25 03:02 5 mg QHS PRN Administration Insomnia Methylprednisolone Sodium Succinate 40 mg 05/21/24 21:00 05/23/24 10:34 Methylprednisolone Sod Succ/Pf 40 Mg/Ml (1ml) Vial IV-PUSH 05/21/25 20:59 40 mg Q12HR BRYAN Administration Multivitamins 1 tab 05/23/24 09:00 05/23/24 10:14 Multivitamin 1 Tab Tablet PO 05/23/25 08:59 1 tab DAILY BRYAN Administration Ondansetron HCl 4 mg 05/20/24 03:03 Ondansetron 4 Mg/2 Ml Vial IV-PUSH 05/20/25 03:02 Q8H PRN Nausea And Vomiting Pantoprazole Sodium 40 mg 05/20/24 09:00 05/23/24 10:15 Pantoprazole 40 Mg Tablet.Dr PO 05/20/25 08:59 40 mg DAILY BRYAN Administration Potassium Chloride 10 meq 05/21/24 13:00 05/23/24 10:15 Potassium Chloride Er 10 Meq Tablet.Er PO 05/21/25 12:59 10 meq DAILY BRYAN Administration Sodium Chloride 10 ml 05/20/24 04:57 05/23/24 10:34 Sodium Chloride 0.9 % 10 Ml Syringe IV-PUSH 05/20/25 04:56 10 ml PRN PRN Administration Flush Sodium Chloride 0 ml 05/22/24 09:23 Sodium Chloride 0.9 % 10 Ml Syringe IV-PUSH 05/22/25 09:22 PRN PRN Flush Spironolactone 12.5 mg 05/20/24 09:00 05/23/24 10:15 Spironolactone 12.5 Mg Tablet PO 05/20/25 08:59 12.5 mg DAILY BRYAN Administration Terazosin HCl 10 mg 05/20/24 22:00 05/22/24 20:41 Terazosin 5 Mg Capsule PO 05/20/25 21:59 10 mg HS BRYAN Administration Valsartan 40 mg 05/20/24 09:45 05/23/24 10:15 Valsartan 40 Mg Tablet PO 05/20/25 09:44 40 mg BID BRYAN Administration A&P - Hospitalist Assessment/Plan (1) Acute HFrEF (heart failure with reduced ejection fraction): (2) Chronic indwelling Gomez catheter: Plan: placed by urologist for urinary retention. Will maintain. (3) Chronic kidney disease: (4) Diabetes: (5) Hypomagnesemia: (6) Acute on chronic hypoxic respiratory failure: (7) Afib: Plan Assessment and Plan: 1. Acute on chronic HFrEF EF from echo in March is 20-25%, repeat echo EF 35%. Pt not previously optimized on GDMTA due to CKD, will consider adding SGLTi Discontinue Bumex continuous infusion, will begin Lasix Continue valsartan for afterload reduction cardiology consult appreciated 2. Acute respiratory failure with hypoxia- currently on 4L via NC Continue high flow o2, wean as tolerated Pulmonology following, ANCA panel pending, concerns for interstitial pneumonia vs ongoing interstitial lung disease Pt on IV corticosteroids with Solo-Medrol mg IV q12h Continue ceftriaxone and doxycycline, 7 day course recommended. 05/23 is day 3 3. Chronic Afib Atrial Flutter on monitor continue Coreg and Eliquis 4. Anemia Anemia of chronic disease, elevated ESR and ferritin with low iron Iron infusion done 05/22, 05/23, 05/24 b12 and folate nl Stool sample negative for occult blood 5. CKD stage III Cr is 1.6 baseline with good response to diuresis, cr elevated (05/23) 1.78 BMP daily 6. DM2 with hyperglycemia due to corticosteroids hemoglobin A1c 7.5 long acting and short acting adjusted, will adjust daily 7. Hypomagnesemia (05/22) 1.6 goal Mg>2.0 Code: DNRCCA with intubation DVT px: as above Diet: heart healthy +++ +++ I saw and personally examined this patient on the date of the encounter. I agree with the documentation as written. I personally discussed the case and formulated the plan of care in conjunction with medical student who began this note, and made adjustments to this document at the time of my signature. - - - Richard Zamora DO. Internal Medicine + Hospitalist attending physician. Documented By: Richard Zamora DO [id number] Signed By: <Electronically signed by Richard Zamora DO> 05/23/24 0740 [facility] Work Phone: [phone]) 937-710403-04-2025 [place] [address] Hospitalist Progress Note Signed Patient: Leighton Arciniega MR#: [id number] : 1945 Acct:[id number] Age/Sex: 78 / M Adm Date: 5 Loc: Room: [address] [place] [address] Type: ADM IN Attending Dr: Richard Zamora DO Copies to: ~ Date of Service: 05/23/2024 Subjective Subjective Narrative: Pt observed sitting up in chair today. He says he is feeling well and his breathing feels better today. He is tired from the stress test earlier today as well as PT/OT. Exam: GENERAL: alert, oriented, comfortable HEENT: NC/AT CARDIOVASCULAR: Regular rate and irregular rhythm, symmetric palpable radial pulses RESPIRATORY: comfortable on 4L via NC, basilar crackles b/l ABDOMEN: Soft, non-tender, non-distended, normal bowel sounds EXTREMITIES: moving all extremities well. Well-perfused. +1 nonpitting pedal edema SKIN: Intact, no rash, no trauma PSYCHIATRIC:appropriate mood and affect, cooperative Exam Physical Exam Vital Signs: Temp Pulse Resp BP Pulse Ox O2 Del Method O2 Flow Rate 98.1 F 70 18 149/68 H 98 Nasal Cannula 4 05/22/24 16:53 05/23/24 09:08 05/23/24 04:19 05/23/24 09:08 05/23/24 04:19 05/23/24 08:00 05/23/24 08:00 FiO2 30 05/22/24 23:41 Objective Lab Results 05/23/24 05:13 05/23/24 05:13 Microbiology Results Microbiology 05/22/24 11:32 Nares, Left MRSA Culture - Preliminary No MRSA Isolated 1 Day Meds Allergies and Active Meds Allergies fosinopril Allergy (Verified 05/09/24 19:59) SOB metoprolol Allergy (Verified 05/09/24 19:59) Hypotension strawberry Allergy (Verified 05/09/24 19:59) Rash Active Meds: Active Medications Generic Name Dose Route Start Last Admin Trade Name Freq PRN Reason Stop Dose Admin Acetaminophen 650 mg 05/20/24 03:03 05/21/24 21:25 Acetaminophen 325 Mg Tablet PO 05/20/25 03:02 650 mg Q6HR PRN Administration Pain Scale 1 - 3 or fever Albuterol 2.5 mg 05/20/24 05:49 Albuterol Neb 2.5 Mg/3 Ml Vial.Neb INHALATION 05/20/25 05:48 Q4H PRN shortness of breath or wheezing Allopurinol 300 mg 05/20/24 09:00 05/23/24 10:14 Allopurinol 300 Mg Tablet PO 05/20/25 08:59 300 mg DAILY BRYAN Administration Apixaban 5 mg 05/20/24 09:00 05/23/24 10:15 Apixaban 5 Mg Tablet PO 05/20/25 08:59 5 mg BID BRYAN Administration Aspirin 81 mg 05/21/24 09:00 05/21/24 08:01 Aspirin 81 Mg Tablet. PO 05/21/25 08:59 81 mg Delacruz@0900 BRYAN Administration Atorvastatin Calcium 10 mg 05/21/24 21:00 05/22/24 20:35 Atorvastatin 10 Mg Tablet PO 05/21/25 20:59 10 mg QPM BRYAN Administration Calcium Carbonate 1 tab 05/22/24 14:00 05/23/24 10:15 Calcium Carbonate/Vitamin D3 500 Mg/200 Unit Tablet PO 05/22/25 13:59 1 tab DAILY BRYAN Administration Carvedilol 6.25 mg 05/20/24 08:00 05/23/24 10:15 Carvedilol 6.25 Mg Tablet PO 05/20/25 07:59 6.25 mg BID.WITH.MEALS BRYAN Administration Cyanocobalamin 1,000 mcg 05/23/24 09:00 05/23/24 10:14 Cyanocobalamin 1,000 Mcg Tablet PO 05/23/25 08:59 1,000 mcg DAILY BRYAN Administration Dapagliflozin 5 mg 05/24/24 09:00 Dapagliflozin 5 Mg Tablet PO 05/24/25 08:59 DAILY BRYAN Dextrose 0 gm 05/20/24 03:54 Dextrose 50% In Water 25 Gm/50 Ml Syringe IV-PUSH 05/20/25 03:53 PRN PRN Hypoglycemia Doxycycline Hyclate 100 mg 05/20/24 21:00 05/23/24 10:14 Doxycycline Hyclate 100 Mg Tablet PO 100 mg BID BRYAN Administration Finasteride 5 mg 05/20/24 09:00 05/23/24 10:10 Finasteride 5 Mg Tablet PO 05/20/25 08:59 5 mg DAILY BRYAN Administration Furosemide 80 mg 05/24/24 08:00 Furosemide 100 Mg/10 Ml Vial IV-PUSH 05/24/25 07:59 TID BRYAN Glucose 0 gm 05/20/24 03:54 Dextrose 40% Gel 15 Gm Tube PO 05/20/25 03:53 PRN PRN Hypoglycemia Ceftriaxone Sodium 1 gm in 50 mls @ 100 mls/hr 05/20/24 13:00 05/23/24 15:13 Rocephin IV 100 mls/hr Q24H BRYAN Administration Ferric Sodium Gluconate 270 mls @ 135 mls/hr 05/22/24 14:00 05/23/24 11:14 Complex 250 mg/ Sodium IV 05/25/24 10:59 135 mls/hr Chloride QAM BRYAN Administration Insulin Aspart 0 units 05/20/24 08:00 05/23/24 11:37 Insulin Aspart 300 Units/3 Ml SUBCUT 05/20/25 07:59 24 units TID.WM.HS BRYAN Administration Protocol Insulin Aspart 0 units 05/22/24 17:00 05/23/24 14:17 Insulin Aspart 300 Units/3 Ml SUBCUT 05/22/25 16:59 6 units TID.WITH.MEALS BRYAN Administration Protocol Insulin Glargine 35 units 05/23/24 21:00 Insulin Glargine 300 Units/3 Ml Insuln.Pen SUBCUT 05/23/25 20:59 BID BRYAN Magnesium Oxide 400 mg 05/23/24 09:00 05/23/24 10:15 Magnesium Oxide 400 Mg Tablet PO 05/23/25 08:59 400 mg DAILY BRYAN Administration Melatonin 5 mg 05/20/24 03:03 05/21/24 21:26 Melatonin 5 Mg Tablet PO 05/20/25 03:02 5 mg QHS PRN Administration Insomnia Methylprednisolone Sodium Succinate 40 mg 05/21/24 21:00 05/23/24 10:34 Methylprednisolone Sod Succ/Pf 40 Mg/Ml (1ml) Vial IV-PUSH 05/21/25 20:59 40 mg Q12HR BRYAN Administration Multivitamins 1 tab 05/23/24 09:00 05/23/24 10:14 Multivitamin 1 Tab Tablet PO 05/23/25 08:59 1 tab DAILY BRYAN Administration Ondansetron HCl 4 mg 05/20/24 03:03 Ondansetron 4 Mg/2 Ml Vial IV-PUSH 05/20/25 03:02 Q8H PRN Nausea And Vomiting Pantoprazole Sodium 40 mg 05/20/24 09:00 05/23/24 10:15 Pantoprazole 40 Mg Tablet. PO 05/20/25 08:59 40 mg DAILY BRYAN Administration Potassium Chloride 10 meq 05/21/24 13:00 05/23/24 10:15 Potassium Chloride Er 10 Meq Tablet.Er PO 05/21/25 12:59 10 meq DAILY BRYAN Administration Sodium Chloride 10 ml 05/20/24 04:57 05/23/24 10:34 Sodium Chloride 0.9 % 10 Ml Syringe IV-PUSH 05/20/25 04:56 10 ml PRN PRN Administration Flush Sodium Chloride 0 ml 05/22/24 09:23 Sodium Chloride 0.9 % 10 Ml Syringe IV-PUSH 05/22/25 09:22 PRN PRN Flush Spironolactone 12.5 mg 05/20/24 09:00 05/23/24 10:15 Spironolactone 12.5 Mg Tablet PO 05/20/25 08:59 12.5 mg DAILY BRYAN Administration Terazosin HCl 10 mg 05/20/24 22:00 05/22/24 20:41 Terazosin 5 Mg Capsule PO 05/20/25 21:59 10 mg HS BRYAN Administration Valsartan 40 mg 05/20/24 09:45 05/23/24 10:15 Valsartan 40 Mg Tablet PO 05/20/25 09:44 40 mg BID BRYAN Administration A&P - Hospitalist Assessment/Plan (1) Acute HFrEF (heart failure with reduced ejection fraction): (2) Chronic indwelling Gomez catheter: Plan: placed by urologist for urinary retention. Will maintain. (3) Chronic kidney disease: (4) Diabetes: (5) Hypomagnesemia: (6) Acute on chronic hypoxic respiratory failure: (7) Afib: Plan Assessment and Plan: 1. Acute on chronic HFrEF EF from echo in March is 20-25%, repeat echo EF 35%. Pt not previously optimized on GDMTA due to CKD, will consider adding SGLTi Discontinue Bumex continuous infusion, will begin Lasix Continue valsartan for afterload reduction cardiology consult appreciated 2. Acute respiratory failure with hypoxia- currently on 4L via NC Continue high flow o2, wean as tolerated Pulmonology following, ANCA panel pending, concerns for interstitial pneumonia vs ongoing interstitial lung disease Pt on IV corticosteroids with Solo-Medrol mg IV q12h Continue ceftriaxone and doxycycline, 7 day course recommended. 05/23 is day 3 3. Chronic Afib Atrial Flutter on monitor continue Coreg and Eliquis 4. Anemia Anemia of chronic disease, elevated ESR and ferritin with low iron Iron infusion done 05/22, 05/23, 05/24 b12 and folate nl Stool sample negative for occult blood 5. CKD stage III Cr is 1.6 baseline with good response to diuresis, cr elevated (05/23) 1.78 BMP daily 6. DM2 with hyperglycemia due to corticosteroids hemoglobin A1c 7.5 long acting and short acting adjusted, will adjust daily 7. Hypomagnesemia (05/22) 1.6 goal Mg>2.0 Code: DNRCCA with intubation DVT px: as above Diet: heart healthy +++ +++ I saw and personally examined this patient on the date of the encounter. I agree with the documentation as written. I personally discussed the case and formulated the plan of care in conjunction withmedical student who began this note, and made adjustments to this document at the time of my signature. - - - Richard Zamora DO. Internal Medicine + Hospitalist attending physician. Documented By: Richard Zamora DO [id number] Signed By: 05/23/24 1742 [facility]03-04-2025 Progress note Author Darshan Willams [facility] Note Date/Time May 23, 2024 1:15 pm [facility] [address] [place] [address] Pulmonology Progress Note Signed Patient: Leighton Arciniega MR#: [id number] : 1945 Acct:[id number] Age/Sex: 78 / M Adm Date: 5 Loc: Room: [address] [place] [address] Type: ADM IN Attending Dr: Richard Zamora DO Copies to: ~ Date of Service: 05/23/2024 Subjective Subjective Narrative: Patient continues to feel that he is improving and note patient is presently on Bumex drip with output greater than input. He remains on ceftriaxone and azithromycin as well as Solu-Medrol 40 mg IV every 12 hours. Exam Physical Exam Vital Signs: Temp Pulse Resp BP Pulse Ox O2 Del Method O2 Flow Rate 98.1 F 70 18 146/77 H 98 CPAP 4 05/22/24 16:53 05/23/24 04:19 05/23/24 04:19 05/23/24 04:19 05/23/24 04:19 05/23/24 04:19 05/22/24 22:00 FiO2 30 05/22/24 23:41 Const General: cooperative and not in acute distress Nutritional Appearance: average body habitus Orientation: alert and awake HEENT Head: normocephalic Ears: hearing grossly normal bilaterally and external ears normal Nose: external nose normal Face and sinus: normal facial exam Eyes Eyelids: eyelids normal Neck Neck: normal visual inspection Chest Chest palpation & inspection: normal inspection of the chest Resp Effort & Inspection: normal respiratory effort, able to speak in complete sentences and no use of accessory muscles Auscultation: crackles bilaterally at the base, no rhonchi and no wheezes Cardio Rate: regular rate Rhythm: abnormal rhythm irregularly irregular Heart Sounds: S1 normal and S2 normal GI Inspection: normal to inspection Palpation: soft Auscultation: hypoactive bowel sounds Rectal Exam: deferred General: deferred Skin Lesions: no lesions Rashes: no rashes Extrem General: no pedal edema Objective Intake and Output I&O - Last 24 Hours: Intake & Output 05/22/24 05/23/24 05/23/24 23:59 07:59 15:59 Intake Total 616 / 1316 0 / 0 Output Total 850 / 3225 1000 / 1000 Balance -234 / -1909 -1000 / -1000 Weight 84.2 kg Labs 05/23/24 05:13 05/23/24 05:13 Microbiology Micro: Microbiology 3 05/20/24 18:20 Aerobic Culture - Final Sputum - Expectorated Light Normal Respiratory Elin 2 Days Gram Stain - Final Assessment/Plan Assessment/Plan (1) Acute on chronic hypoxic respiratory failure: (2) Acute HFrEF (heart failure with reduced ejection fraction): (3) Hemoptysis: (4) Pulmonary infiltrates: (5) COPD (chronic obstructive pulmonary disease): (6) Obstructive sleep apnea: (7) Afib: (8) Chronic kidney disease: (9) Pacemaker: (10) Sick sinus syndrome: (11) Anemia: (12) Diabetes: Plan Hospital day #3 for patient with recurrent acute on chronic hypoxemic respiratory failure in the context of known ischemic cardiomyopathy and concernsfor volume overload but also with scattered groundglass opacity with areas of septal thickening with concerns for acute interstitial pneumonia versus ongoing interstitial lung disease * Continue current regimen and may consider decreasing steroids in the next 24 to 48 hours as patient continues to improve. * Recommend a 7-day course of antibiotics * Continue diuresis as renal function and hemodynamics allows with note of slight increase in ejection fraction * Case was discussed with cardiology (Dr. Harvey). Documented By: Darshan Willams MD 5 0901 Signed By: <Electronically signed by MD Darsahn Willams> 05/23/24 6544 [facility] Work Phone: 1(911) 164-560303-04-2025 Nuclear medicine Diagnostic study note [facility] Main [place] [address] [place] [address] Nuclear Medicine Report Signed Patient: Leighton Arciniega MR#: [id number] : 1945 Acct:[id number] Age/Sex: 78 / M ADM Date: 5 Loc: Room: [address] [place] [address] Type: ADM IN Attending Dr: Richard Zamora DO Copies to: MD Richard Celeste, ~ Ordering Provider: John Nettles MD Date of Service: 05/23/24 NM/NM nelson perf SPECT rest & str: *Dose ordered chf NUCLEAR MYOCARDIAL PERFUSION DATE OF PROCEDURE: 05/23/2024 ATTENDING ZUMBA INSTRUCTOR: Dr. John Nettles REQUESTING PHYSICIAN: Dr. Harvey PROCEDURE: The patient received a stress dose of Lexiscan and was then injected with 1 millicuries of Technetium 99M Sestamibi. The patient achieved a workload of 1 METs during the last one minute of exercise. The patient was then injected with 1 millicuries of Technetium 99M Sestamibi oneminute before the end of the exercise. For rest images the patient was injected with 1 millicuries of Technetium 99M Sestamibi. FINDINGS: The raw cine images were reviewed. The post stress and rest perfusion images were reviewed as well as the computer quantification.? There was uniform uptake of the radiotracer. No perfusion defects to indicate ischemia or infarction. Poor quality study due to gut uptake. On the gated portion of the study, the overall ejection fraction calculated at 35%.?Severely dilated LV with apical hypokinesis. TID score 1.06 is within normal limits. NM/NM nelson perf SPECT rest & str IMPRESSION: 1. SPECT Sestamibi myocardial perfusion study is within normal limits. No ischemia or infarction. 2. Severely dilated LV with apical hypokinesis. 3. Reduced left ventricular systolic function. LVEF is 35%.? Impression dictated by: John Nettles M.D.05/23/2024 2:23 PM Dictation Location: [place] [address] Transcribed By: [place] 05/23/24 142 Dictated By: John Nettles MD 05/23/24 141 Signed By: 05/23/24 142 [facility] Work Phone: [phone]) 648-881103-04-2025 [place] [address] Pulmonology Progress Note Signed Patient: Leighton Arciniega MR#: [id number] : 1945 Acct:[id number] Age/Sex: 78 / M Adm Date: 5 Loc: 3T Room: [address] [place] [address] Type: ADM IN Attending Dr: Richard Zamora DO Copies to: ~ Date of Service: 05/23/2024 Subjective Subjective Narrative: Patient continues to feel that he is improving and note patient is presently on Bumex drip with output greater than input. He remains on ceftriaxone and azithromycin as well as Solu-Medrol 40 mg IV every 12 hours. Exam Physical Exam Vital Signs: Temp Pulse Resp BP Pulse Ox O2 Del Method O2 Flow Rate 98.1 F 70 18 146/77 H 98 CPAP 4 05/22/24 16:53 05/23/24 04:19 05/23/24 04:19 05/23/24 04:19 05/23/24 04:19 05/23/24 04:19 05/22/24 22:00 FiO2 30 05/22/24 23:41 Const General: cooperative and not in acute distress Nutritional Appearance: average body habitus Orientation: alert and awake HEENT Head: normocephalic Ears: hearing grossly normal bilaterally and external ears normal Nose: external nose normal Face and sinus: normal facial exam Eyes Eyelids: eyelids normal Neck Neck: normal visual inspection Chest Chest palpation & inspection: normal inspection of the chest Resp Effort & Inspection: normal respiratory effort, able to speak in complete sentences and no use of accessory muscles Auscultation: crackles bilaterally at the base, no rhonchi and no wheezes Cardio Rate: regular rate Rhythm: abnormal rhythm irregularly irregular Heart Sounds: S1 normal and S2 normal GI Inspection: normal to inspection Palpation: soft Auscultation: hypoactive bowel sounds Rectal Exam: deferred General: deferred Skin Lesions: no lesions Rashes: no rashes Extrem General: no pedal edema Objective Intake and Output I&O - Last 24 Hours: Intake & Output 05/22/24 05/23/24 05/23/24 23:59 07:59 15:59 Intake Total 616 / 1316 0 / 0 Output Total 850 / 3225 1000 / 1000 Balance -234 / -1909 -1000 / -1000 Weight 84.2 kg Labs 05/23/24 05:13 05/23/24 05:13 Microbiology Micro: Microbiology 3 05/20/24 18:20 Aerobic Culture - Final Sputum - Expectorated Light Normal Respiratory Elin 2 Days Gram Stain - Final Assessment/Plan Assessment/Plan (1) Acute on chronic hypoxic respiratory failure: (2) Acute HFrEF (heart failure with reduced ejection fraction): (3) Hemoptysis: (4) Pulmonary infiltrates: (5) COPD (chronic obstructive pulmonary disease): (6) Obstructive sleep apnea: (7) Afib: (8) Chronic kidney disease: (9) Pacemaker: (10) Sick sinus syndrome: (11) Anemia: (12) Diabetes: Plan Hospital day #3 for patient with recurrent acute on chronic hypoxemic respiratory failure in the context of known ischemic cardiomyopathy and concernsfor volume overload but also with scattered groundglass opacity with areas of septal thickening with concerns for acute interstitial pneumonia versus ongoing interstitial lung disease * Continue current regimen and may consider decreasing steroids in the next 24 to 48 hours as patient continues to improve. * Recommend a 7-day course of antibiotics * Continue diuresis as renal function and hemodynamics allows with note of slight increase in ejection fraction * Case was discussed with cardiology (Dr. Harvey). Documented By: Darshan iWllams MD 5 0901 Signed By: 05/23/[address] [place], [place] 4846103-04-2025 Progress note Author Shirley Harvey [facility] Note Date/Time May 23, 2024 9:32 am [facility] [address] [place] [address] Cardiology Progress Note Signed Patient: Leighton Arciniega MR#: [id number] : 1945 Acct:[id number] Age/Sex: 78 / M Adm Date: 5 Loc: Room: [address] [place] [address] Type: ADM IN Attending Dr: Richard Zamora DO Copies to: ~ Date of Service: 05/22/2024 Subjective Principal diagnosis: CHF management Interval history: Mr. Arciniega is a 78-year-old male who was admitted to [facility] on 05/19/2023 with hypoxic respiratory failure due to pneumonia and CHF. Chest x-rayyesterday shows bilateral opacities due to pneumonia versus CHF. [facility] and underwent diuresis and eventual discharge to SNF. He was discharged on Bumex p.o. which he would have been getting at the SNF. He has known CHF with an EF of 20-25%. Plans were made for outpatient stress MPI and his follow-up appointment at [facility] Cardiology was scheduled for 06/15/2024. However due to worsening respiratory function he is nowreadmitted to the hospital. He was stabilized on BiPAP. Continues to have some coughing but is feeling better. Last C was normal but was at [facility] in 2012. Interim evaluation 05/21/2024: No acute events. Resp status has greatly improved. He is on 4L O2 today and says he is on 2-3L O2 at home. Is on bumex gtt. Net neg -1844ml yesterday. Interim evaluation 05/22/2024: Patient is sitting in chair when I enter the room. He reports he is feeling better today. He denies chest pain, shortness of breath. He denies other complaints. Labs, imaging, monitor record reviewed today. Hemoglobin 7.9 today, stable fromyesterday, however baseline is 9. Kidney function stable from yesterday, BUN 59, creatinine 1.90, potassium 3.7. Magnesium 1.6. Ferritin elevated to 717. Chest CT from May 20 shows scattered areas of groundglass and septal thickeningwith small bilateral pleural effusion. Findings may relate to CHF/pulmonary edema or atypical infectious process. Monitor record shows A-fib with normal ventricular rate, IVCD. Stress test is scheduled for tomorrow. Depending on results, patient may requireevaluation/intervention with cath. No further recommendations per cardiology at this time. Attending note: Patient up to chair, doing well, seen and evaluated in conjunction with Dr. Capone and with critical care/Dr. Willams. There is concern of pneumonitis and therefore IV steroids initiated, acute on chronic anemia noted, severe LV dysfunction by recent echo from last admission also noted. Stress perfusion imaging to perform this hospitalization. All the abovediscussed with patient and family members Exam Physical Exam Vital Signs: Temp Pulse Resp BP Pulse Ox O2 Del Method O2 Flow Rate 98.0 F 75 19 125/56 L 95 Nasal Cannula 4 05/22/24 11:41 05/22/24 11:41 05/22/24 11:41 05/22/24 11:41 05/22/24 11:41 05/22/24 11:41 05/22/24 11:41 FiO2 30 05/22/24 04:30 Narrative: General: Not in any acute distress Extremities: Normal to inspection. HEENT: Head normocephalic, atraumatic, face symmetrical. Pulm: Breathing normally without excessive effort on 4L NC. Cardio: Rate controlled. Irregular rhythm. Musculoskeletal: Moves all extremities. Neuro: Patient alert, oriented x3. Speech movement normal Objective Labs 05/23/24 05:13 05/23/24 05:13 Labs: Laboratory Results - last 24 hr 05/21/24 05/21/24 05/21/24 05:33 16:46 21:24 Corrected WBC Uncorrected WBC Count RBC Hgb Hct MCV MCH MCHC RDW Plt Count MPV Neut % (Auto) Lymph % (Auto) [place] % (Auto) Eos % (Auto) Baso % (Auto) Nucleat RBC Rel Count Neut # (Auto) Lymph # (Auto) [place] # (Auto) Eos # (Auto) Baso # (Auto) PHA Creatinine Clear Sodium Potassium Chloride Carbon Dioxide Anion Gap BUN Creatinine Est GFR (CKD-EPI) Glucose POC Glucose 315 172 POC Glucose Comment Glu2: cleaned meter Estimat Average Glucose 169 Hemoglobin A1c 7.5 H Calcium Magnesium Ferritin Vitamin B12 Folate 05/22/24 05/22/24 05/22/24 05:00 08:04 11:35 Corrected WBC 5.4 Uncorrected WBC Count 5.4 RBC 2.48 L Hgb 7.9 L Hct 23.5 L MCV 94.7 MCH 31.8 MCHC 33.5 RDW 16.4 H Plt Count 195 MPV 7.0 Neut % (Auto) 93.1 Lymph % (Auto) 4.8 [place] % (Auto) 1.6 Eos % (Auto) 0.0 Baso % (Auto) 0.5 Nucleat RBC Rel Count 0.0 Neut # (Auto) 5.0 Lymph # (Auto) 0.3 L [place] # (Auto) 0.1 Eos # (Auto) 0.0 Baso # (Auto) 0.0 PHA Creatinine Clear 36.62 Sodium 139 Potassium 3.7 Chloride 103 Carbon Dioxide 27.0 Anion Gap 12.7 BUN 59 H Creatinine 1.90 H Est GFR (CKD-EPI) 35.661 Glucose 152 H POC Glucose 226 305 POC Glucose Comment Estimat Average Glucose Hemoglobin A1c Calcium 9.0 Magnesium 1.6 L Ferritin 717.0 H Vitamin B12 690 Folate 18.5 A&P - Cardiology (1) Acute HFrEF (heart failure with reduced ejection fraction): Code(s): I50.21 - Acute systolic (congestive) heart failure (2) Interstitial lung disease: Code(s): J84.9 - Interstitial pulmonary disease, unspecified (3) COPD (chronic obstructive pulmonary disease): Code(s): J44.9 - Chronic obstructive pulmonary disease, unspecified (4) Pulmonary infiltrates: Code(s): R91.8 - Other nonspecific abnormal finding of lung field (5) Afib: Code(s): I48.91 - Unspecified atrial fibrillation (6) Sick sinus syndrome: Code(s): I49.5 - Sick sinus syndrome Plan # Acute respiratory failure 2/2 AE-CHF # Interstitial lung dx vs Organizing PNA on CT Chest # COPD on 2-3L O2 at home # Acute on chronic normocytic anemia - Is 7 on admission, baseline 9. May be renal dx related. # SSS s/p PPM # CKD 3 ? unclear what his baseline sCr is. # HTN ? well-controlled # Other: AFib, DM, VIRGILIO on CPAP, chronic indwelling Gomez catheter due to BPH. 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 Echo 05/11/24 - EF 20-25%, severely dilated LV with moderate LVH, midly dilated RV, mildly dilated LA, trace MR and TR, pacemaker. CXR 05/20/24 - Bilateral pulmonary edema with effusions. Chest CT 05/20/24 - scattered groundglass and septal thickening with small bilateral pleural effusions. -Continue supplemental O2 support. Wean as tolerated. -Continue diuresis with Bumex -GDMT: Coreg, valsartan, spironolactone. Consider SGLT2i later. -On Eliquis for AFib. -Continue antibiotics per primary team. -Lexiscan MPI scheduled for tomorrow to workup new cardiomyopathy. -No further recommendations per cardiology today Documented By: Sihrley Harvey DO 05/22/24 1241 Signed By: <Electronically signed by Shirley Harvey DO> 05/23/24 1032 [facility] Work Phone: [phone] [address] Cardiology Progress Note Signed Patient: Leighton Arciniega MR#: [id number] : 1945 Acct:[id number] Age/Sex: 78 / M Adm Date: 5 Loc: 3T Room: [address] [place] [address] Type: ADM IN Attending Dr: Richard Zamora DO Copies to: ~ Date of Service: 05/22/2024 Subjective Principal diagnosis: CHF management Interval history: Mr. Arciniega is a 78-year-old male who was admitted to [facility] on 05/19/2023 with hypoxic respiratory failure due to pneumonia and CHF. Chest x- rayyesterday shows bilateral opacities due to pneumonia versus CHF. He was [facility] at [facility] and underwent diuresis and eventual discharge to SNF. He was discharged on Bumex p.o. which he would have been getting atthe SNF. He has known CHF with an EF of 20-25%. Plans were made for outpatient stress MPI and his follow-up appointment at [facility] Cardiology was scheduled for 06/15/2024. However due to worsening respiratory function he is nowreadmitted to the hospital. He was stabilized on BiPAP. Continues to have some coughing but is feeling better. Last [facility] was normal but was at [facility] in 2012. Interim evaluation 05/21/2024: No acute events. Resp status has greatly improved. He is on 4L O2 today and says he is on 2-3L O2 at home. Is on bumex gtt. Net neg -1844ml yesterday. Interim evaluation 05/22/2024: Patient is sitting in chair when I enter the room. He reports he is feeling better today. He denies chest pain, shortness of breath. He denies other complaints. Labs, imaging, monitor record reviewed today. Hemoglobin 7.9 today, stable fromyesterday, however baseline is 9. Kidney function stable from yesterday, BUN 59, creatinine 1.90, potassium 3.7. Magnesium 1.6. Ferritin elevated to 717. Chest CT from May 20 shows scattered areas of groundglass and septal thickeningwith small bilateral pleural effusion. Findings may relate to CHF/pulmonary edema or atypical infectious process. Monitor record shows A-fib with normal ventricular rate, IVCD. Stress test is scheduled for tomorrow. Depending on results, patient may requireevaluation/intervention with cath. No further recommendations per cardiology at this time. Attending note: Patient up to chair, doing well, seen and evaluated in conjunction with Dr. Helms with critical care/Dr. Willams. There is concern of pneumonitis and therefore IV steroids initiated, acute on chronic anemia noted, severe LV dysfunction by recent echo from last admission also n oted. Stress perfusion imaging to perform this hospitalization. All the abovediscussed with patientand family members Exam Physical Exam Vital Signs: Temp Pulse Resp BP Pulse Ox O2 Del Method O2 Flow Rate 98.0 F 75 19 125/56 L 95 Nasal Cannula 4 05/22/24 11:41 05/22/24 11:41 05/22/24 11:41 05/22/24 11:41 05/22/24 11:41 05/22/24 11:41 05/22/24 11:41 FiO2 30 05/22/24 04:30 Narrative: General: Not in any acute distress Extremities: Normal to inspection. HEENT: Head normocephalic, atraumatic, face symmetrical. Pulm: Breathing normally without excessive effort on 4L NC. Cardio: Rate controlled. Irregular rhythm. Musculoskeletal: Moves all extremities. Neuro: Patient alert, oriented x3. Speech movement normal Objective Labs 05/23/24 05:13 05/23/24 05:13 Labs: Laboratory Results - last 24 hr 05/21/24 05/21/24 05/21/24 05:33 16:46 21:24 Corrected WBC Uncorrected WBC Count RBC Hgb Hct MCV MCH MCHC RDW Plt Count MPV Neut % (Auto) Lymph % (Auto) [place] % (Auto) Eos % (Auto) Baso % (Auto) Nucleat RBC Rel Count Neut # (Auto) Lymph # (Auto) [place] # (Auto) Eos # (Auto) Baso # (Auto) PHA Creatinine Clear Sodium Potassium Chloride Carbon Dioxide Anion Gap BUN Creatinine Est GFR (CKD-EPI) Glucose POC Glucose 315 172 POC Glucose Comment Glu2: cleaned meter Estimat Average Glucose 169 Hemoglobin A1c 7.5 H Calcium Magnesium Ferritin Vitamin B12 Folate 05/22/24 05/22/24 05/22/24 05:00 08:04 11:35 Corrected WBC 5.4 Uncorrected WBC Count 5.4 RBC 2.48 L Hgb 7.9 L Hct 23.5 L MCV 94.7 MCH 31.8 MCHC 33.5 RDW 16.4 H Plt Count 195 MPV 7.0 Neut % (Auto) 93.1 Lymph % (Auto) 4.8 [place] % (Auto) 1.6 Eos % (Auto) 0.0 Baso % (Auto) 0.5 Nucleat RBC Rel Count 0.0 Neut # (Auto) 5.0 Lymph # (Auto) 0.3 L [place] # (Auto) 0.1 Eos # (Auto) 0.0 Baso # (Auto) 0.0 PHA Creatinine Clear 36.62 Sodium 139 Potassium 3.7 Chloride 103 Carbon Dioxide 27.0 Anion Gap 12.7 BUN 59 H Creatinine 1.90 H Est GFR (CKD-EPI) 35.661 Glucose 152 H POC Glucose 226 305 POC Glucose Comment Estimat Average Glucose Hemoglobin A1c Calcium 9.0 Magnesium 1.6 L Ferritin 717.0 H Vitamin B12 690 Folate 18.5 A&P - Cardiology (1) Acute HFrEF (heart failure with reduced ejection fraction): Code(s): I50.21 - Acute systolic (congestive) heart failure (2) Interstitial lung disease: Code(s): J84.9 - Interstitial pulmonary disease, unspecified (3) COPD (chronic obstructive pulmonary disease): Code(s): J44.9 - Chronic obstructive pulmonary disease, unspecified (4) Pulmonary infiltrates: Code(s): R91.8 - Other nonspecific abnormal finding of lung field (5) Afib: Code(s): I48.91 - Unspecified atrial fibrillation (6) Sick sinus syndrome: Code(s): I49.5 - Sick sinus syndrome Plan # Acute respiratory failure 2/2 AE-CHF # Interstitial lung dx vs Organizing PNA on CT Chest # COPD on 2-3L O2 at home # Acute on chronic normocytic anemia - Is 7 on admission, baseline 9. May be renal dx related. # SSS s/p PPM # CKD 3 ? unclear what his baseline sCr is. # HTN ? well-controlled # Other: AFib, DM, VIRGILIO on CPAP, chronic indwelling Gomez catheter due to BPH. 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 Echo 05/11/24 - EF 20-25%, severely dilated LV with moderate LVH, midly dilated RV, mildly dilated LA, trace MR and TR, pacemaker. CXR 05/20/24 - Bilateral pulmonary edema with effusions. Chest CT 05/20/24 - scattered groundglass and septal thickening with small bilateral pleural effusions. -Continue supplemental O2 support. Wean as tolerated. -Continue diuresis with Bumex -GDMT: Coreg, valsartan, spironolactone. Consider SGLT2i later. -On Eliquis for AFib. -Continue antibiotics per primary team. -Lexiscan MPI scheduled for tomorrow to workup new cardiomyopathy. -No further recommendations per cardiology today Documented By: Shirley Harvey DO 05/22/24 1241 Signed By: 05/23/24 1032 [facility]03-03-2025 Progress note Author Darshan Willams [facility] Note Date/Time May 22, 2024 6:06 pm [facility] [address] [place] [address] Pulmonology Progress Note Signed Patient: Leighton Arciniega MR#: [id number] : 1945 Acct:[id number] Age/Sex: 78 / M Adm Date: 5 Loc: Room: [address] [place] [address] Type: ADM IN Attending Dr: Richard Zamora DO Copies to: ~ Date of Service: 05/22/2024 Subjective Subjective Narrative: Patient reports that he is feeling somewhat better today. He continues with increased oxygen requirements though stable. Exam Physical Exam Vital Signs: Temp Pulse Resp BP Pulse Ox O2 Del Method O2 Flow Rate 98.1 F 70 14 144/67 H 97 Nasal Cannula 4 05/22/24 16:53 05/22/24 18:42 05/22/24 18:42 05/22/24 18:42 05/22/24 18:42 05/22/24 18:42 05/22/24 18:42 FiO2 30 05/22/24 04:30 Const General: cooperative and not in acute distress Nutritional Appearance: average body habitus Orientation: alert and awake HEENT Head: normocephalic Ears: hearing grossly normal bilaterally and external ears normal Nose: external nose normal Face and sinus: normal facial exam Eyes Eyelids: eyelids normal Neck Neck: normal visual inspection Chest Chest palpation & inspection: normal inspection of the chest Resp Effort & Inspection: normal respiratory effort, able to speak in complete sentences and no use of accessory muscles Auscultation: crackles bilaterally at the base, no rhonchi and no wheezes Cardio Rate: regular rate Rhythm: abnormal rhythm irregularly irregular Heart Sounds: S1 normal and S2 normal GI Inspection: normal to inspection Palpation: soft Auscultation: hypoactive bowel sounds Rectal Exam: deferred General: deferred Skin Lesions: no lesions Rashes: no rashes Extrem General: no pedal edema Objective Intake and Output I&O - Last 24 Hours: Intake & Output 05/22/24 05/22/24 05/22/24 07:59 15:59 23:59 Intake Total 150 / 820 550 / 820 120 / 820 Output Total 1275 / 2375 1100 / 2375 Balance -1125 / -1555 -550 / -1555 120 / -1555 Weight 92.5 kg Labs 05/22/24 05:00 05/22/24 05:00 Microbiology Micro: Microbiology 3 05/20/24 18:20 Aerobic Culture - Final Sputum - Expectorated Light Normal Respiratory Elin 2 Days Gram Stain - Final Imaging and Cardiology CT scan - chest: Status: image reviewed by me Additional comments: Date of Service: 05/20/24 CT/CT chest wo con: Pulmonary infiltrates CT CHEST WITHOUT IV CONTRAST: CLINICAL HISTORY: Respiratory distress. COMPARISON: CT chest 05/20/2024 TECHNIQUE: Spiral images were obtained through the chest without IV contrast. This CT exam was performed using one or more following dose reduction techniques: Automated exposure control, adjustment of the mA and/or kV accordingto patient size, or use of iterative reconstruction technique. FINDINGS: Mediastinum:Thoracic aorta demonstrates moderate calcification without aneurysm. Pacemaker device. Cardiomegaly. No pleural effusion. Pulmonary trunk appearsnondilated. Multiple prominent mediastinal lymph nodes largest involving the pretracheal region measuring 1 cm in short axis. The esophagus is grossly unremarkable. Lungs:Small bilateral pleural effusions. Scattered areas of groundglass/septal thickening. No pneumothorax. Trachea and distal airways appear patent. Abd:No acute process. Soft tissues/Bones: No acute process. Osseous structures demonstrate degenerative change. CT/CT chest wo con IMPRESSION: Scattered areas of groundglass and septal thickening with small bilateral pleural effusions. Findings may relate to CHF/pulmonary edema given the cardiomegaly. An atypical infectious process cannot BE excluded. CT follow-up is recommended to ensure resolution. Assessment/Plan Assessment/Plan (1) Acute on chronic hypoxic respiratory failure: (2) Acute HFrEF (heart failure with reduced ejection fraction): (3) Hemoptysis: (4) Pulmonary infiltrates: (5) COPD (chronic obstructive pulmonary disease): (6) Obstructive sleep apnea: (7) Afib: (8) Chronic kidney disease: (9) Pacemaker: (10) Sick sinus syndrome: (11) Anemia: (12) Diabetes: Plan Hospital day #2 for patient with recurrent acute on chronic hypoxemic respiratory failure in the context of known ischemic cardiomyopathy and concernsfor volume overload but also with scattered groundglass opacity with areas of septal thickening with concerns for acute interstitial pneumonia versus ongoing interstitial lung disease * Continue diuresis as renal function and hemodynamics allows * Given patient's recent recurrent hospitalizations would normally treat for healthcare associated pathogens but given patient's clinical stability and may be even improvement on ceftriaxone and doxycycline will continue along with Solu- Medrol 40 mg IV every 12 hours * Await stress test and possible invasive diagnostic workup and note that rheumatologic workup which has been sent is pending. * Will follow with you and provide assistance as able * Case was discussed with Dr. Harvey at patient bedside as well as family at bedside Documented By: Darshan Willams MD 190 Signed By: <Electronically signed by MD Darshan Willams> 05/22/241905 [facility] Work Phone: 1(114) 399-973003-03-2025 [place] [address] Pulmonology Progress Note Signed Patient: Leighton Arciniega MR#: [id number] : 1945 Acct:[id number] Age/Sex: 78 / M Adm Date: 5 Loc: 3T Room: [address] [place] [address] Type: ADM IN Attending Dr: Richard Zamora DO Copies to: ~ Date of Service: 05/22/2024 Subjective Subjective Narrative: Patient reports that he is feeling somewhat better today. He continues with increased oxygen requirements though stable. Exam Physical Exam Vital Signs: Temp Pulse Resp BP Pulse Ox O2 Del Method O2 Flow Rate 98.1 F 70 14 144/67 H 97 Nasal Cannula 4 05/22/24 16:53 05/22/24 18:42 05/22/24 18:42 05/22/24 18:42 05/22/24 18:42 05/22/24 18:42 05/22/24 18:42 FiO2 30 05/22/24 04:30 Const General: cooperative and not in acute distress Nutritional Appearance: average body habitus Orientation: alert and awake HEENT Head: normocephalic Ears: hearing grossly normal bilaterally and external ears normal Nose: external nose normal Face and sinus: normal facial exam Eyes Eyelids: eyelids normal Neck Neck: normal visual inspection Chest Chest palpation & inspection: normal inspection of the chest Resp Effort & Inspection: normal respiratory effort, able to speak in complete sentences and no use of accessory muscles Auscultation: crackles bilaterally at the base, no rhonchi and no wheezes Cardio Rate: regular rate Rhythm: abnormal rhythm irregularly irregular Heart Sounds: S1 normal and S2 normal GI Inspection: normal to inspection Palpation: soft Auscultation: hypoactive bowel sounds Rectal Exam: deferred General: deferred Skin Lesions: no lesions Rashes: no rashes Extrem General: no pedal edema Objective Intake and Output I&O - Last 24 Hours: Intake & Output 05/22/24 05/22/24 05/22/24 07:59 15:59 23:59 Intake Total 150 / 820 550 / 820 120 / 820 Output Total 1275 / 2375 1100 / 2375 Balance -1125 / -1555 -550 / -1555 120 / -1555 Weight 92.5 kg Labs 05/22/24 05:00 05/22/24 05:00 Microbiology Micro: Microbiology 3 05/20/24 18:20 Aerobic Culture - Final Sputum - Expectorated Light Normal Respiratory Elin 2 Days Gram Stain - Final Imaging and Cardiology CT scan - chest: Status: image reviewed by me Additional comments: Date of Service: 05/20/24 CT/CT chest wo con: Pulmonary infiltrates CT CHEST WITHOUT IV CONTRAST: CLINICAL HISTORY: Respiratory distress. COMPARISON: CT chest 05/20/2024 TECHNIQUE: Spiral images were obtained through the chest without IV contrast. This CT exam was performed using one or more following dose reduction techniques: Automated exposure control, adjustment of the mA and/or kV accordingto patient size, or use of iterative reconstruction technique. FINDINGS: Mediastinum:Thoracic aorta demonstrates moderate calcification without aneurysm. Pacemaker device. Cardiomegaly. No pleural effusion. Pulmonary trunk appearsnondilated. Multiple prominent mediastinallymph nodes largest involving the pretracheal region measuring 1 cm in short axis. The esophagus isgrossly unremarkable. Lungs:Small bilateral pleural effusions. Scattered areas of groundglass/septal thickening. No pneumothorax. Trachea and distal airways appear patent. Abd:No acute process. Soft tissues/Bones: No acute process. Osseous structures demonstrate degenerative change. CT/CT chest wo con IMPRESSION: Scattered areas of groundglass and septal thickening with small bilateral pleural effusions. Findings may relate to CHF/pulmonary edema given the cardiomegaly. An atypical infectious process cannot BE excluded. CT follow-up is recommended to ensure resolution. Assessment/Plan Assessment/Plan (1) Acute on chronic hypoxic respiratory failure: (2) Acute HFrEF (heart failure with reduced ejection fraction): (3) Hemoptysis: (4) Pulmonary infiltrates: (5) COPD (chronic obstructive pulmonary disease): (6) Obstructive sleep apnea: (7) Afib: (8) Chronic kidney disease: (9) Pacemaker: (10) Sick sinus syndrome: (11) Anemia: (12) Diabetes: Plan Hospital day #2 for patient with recurrent acute on chronic hypoxemic respiratory failure in the context of known ischemic cardiomyopathy and concernsfor volume overload but also with scattered groundglass opacity with areas of septal thickening with concerns for acute interstitial pneumonia versus ongoing interstitial lung disease * Continue diuresis as renal function and hemodynamics allows * Given patient's recent recurrent hospitalizations would normally treat for healthcare associated pathogens but given patient's clinical stability and may be even improvement on ceftriaxone and doxycycline will continue along with Solu-Medrol 40 mg IV every 12 hours * Await stress test and possible invasive diagnostic workup and note that rheumatologic workup which has been sent is pending. * Will follow with you and provide assistance as able * Case was discussed with Dr. Harvey at patient bedside as well as family at bedside Documented By: Darshan Willams MD 5 1899 Signed By: 05/22/241905 [facility]03-03-2025 Progress note Author Richard Zamora [facility] Note Date/Time May 22, 2024 1:52 pm [facility] [address] [place] [address] Hospitalist Progress Note Signed Patient: Leighton Arciniega MR#: [id number] : 1945 Acct:[id number] Age/Sex: 78 / M Adm Date: 5 Loc: Room: [address] [place] [address] Type: ADM IN Attending Dr: Richard Zamora DO Copies to: ~ Date of Service: 05/22/2024 Subjective Subjective Narrative: Pt observed sitting up in chair today. His two daughters are present. Pt says heis feeling better today, he says getting out of bed is difficult and makes him short of breath and that his pulse ox drops. He feels like he is breathing better today and producing less sputum. Pt says did not sleep well last night due to difficulty getting comfortable. Pt wears cpap at home, his daughters and himself agree he is very compliant. Exam: GENERAL: Sitting up in a chair. alert, oriented, comfortable HEENT: NC/AT CARDIOVASCULAR: Regular rate and irregular rhythm, symmetric palpable radial pulses RESPIRATORY: 4L via nasal cannula, basilar crackles b/l, no wheezing. ABDOMEN: Soft, non-tender, non-distended, normal bowel sounds EXTREMITIES: moving all extremities, good perfusion. +1 non-pitting edema LE b/l Exam Physical Exam Vital Signs: Temp Pulse Resp BP Pulse Ox O2 Del Method O2 Flow Rate 97.9 F 69 19 130/63 99 BiPAP 30 05/22/24 05:23 05/22/24 08:10 05/22/24 08:10 05/22/24 08:10 05/22/24 08:10 05/22/24 08:10 05/22/24 08:10 FiO2 30 05/22/24 04:30 Objective Lab Results 05/22/24 05:00 05/22/24 05:00 Microbiology Results Microbiology 05/20/24 18:20 Sputum - Expectorated Aerobic Culture - Final Light Normal Respiratory Elin 2 Days 05/20/24 18:20 Sputum - Expectorated Gram Stain - Final Meds Allergies and Active Meds Allergies fosinopril Allergy (Verified 05/09/24 19:59) SOB metoprolol Allergy (Verified 05/09/24 19:59) Hypotension strawberry Allergy (Verified 05/09/24 19:59) Rash Active Meds: Active Medications Generic Name Dose Route Start Last Admin Trade Name Freq PRN Reason Stop Dose Admin Acetaminophen 650 mg 05/20/24 03:03 05/21/24 21:25 Acetaminophen 325 Mg Tablet PO 05/20/25 03:02 650 mg Q6HR PRN Administration Pain Scale 1 - 3 or fever Albuterol 2.5 mg 05/20/24 05:49 Albuterol Neb 2.5 Mg/3 Ml Vial.Neb INHALATION 05/20/25 05:48 Q4H PRN shortness of breath or wheezing Allopurinol 300 mg 05/20/24 09:00 05/22/24 08:12 Allopurinol 300 Mg Tablet PO 05/20/25 08:59 300 mg DAILY BRYAN Administration Apixaban 5 mg 05/20/24 09:00 05/22/24 08:12 Apixaban 5 Mg Tablet PO 05/20/25 08:59 5 mg BID BRYAN Administration Aspirin 81 mg 05/21/24 09:00 05/21/24 08:01 Aspirin 81 Mg Tablet.Dr PO 05/21/25 08:59 81 mg [email or web address]@0900 BRYAN Administration Atorvastatin Calcium 10 mg 05/21/24 21:00 05/21/24 21:26 Atorvastatin 10 Mg Tablet PO 05/21/25 20:59 10 mg QPM BRYAN Administration Carvedilol 6.25 mg 05/20/24 08:00 05/22/24 08:12 Carvedilol 6.25 Mg Tablet PO 05/20/25 07:59 6.25 mg BID.WITH.MEALS BRYAN Administration Dextrose 0 gm 05/20/24 03:54 Dextrose 50% In Water 25 Gm/50 Ml Syringe IV-PUSH 05/20/25 03:53 PRN PRN Hypoglycemia Doxycycline Hyclate 100 mg 05/20/24 21:00 05/22/24 08:13 Doxycycline Hyclate 100 Mg Tablet PO 100 mg BID BRYAN Administration Finasteride 5 mg 05/20/24 09:00 05/22/24 08:12 Finasteride 5 Mg Tablet PO 05/20/25 08:59 5 mg DAILY BRYAN Administration Glucose 0 gm 05/20/24 03:54 Dextrose 40% Gel 15 Gm Tube PO 05/20/25 03:53 PRN PRN Hypoglycemia Bumetanide 24 mg/ IV 96 mls @ 2 mls/hr 05/20/24 04:30 05/21/24 21:58 Miscellaneous Supplies IV 05/20/25 04:29 1 mg/hr .Q24H BRYAN 4 mls/hr Administration 0.5 MG/HR Ceftriaxone Sodium 1 gm in 50 mls @ 100 mls/hr 05/20/24 13:00 05/21/24 13:23 Rocephin IV 100 mls/hr Q24H BRYAN Administration Magnesium Sulfate 4 gm in 100 mls @ 25 mls/hr 05/22/24 10:30 Magnesium Sulf 4 Gm-*Swfi* IV 05/22/24 14:29 ONCE ONE Insulin Aspart 0 units 05/20/24 08:00 05/22/24 08:21 Insulin Aspart 300 Units/3 Ml SUBCUT 05/20/25 07:59 9 units TID.WM.HS BRYAN Administration Protocol Insulin Glargine 20 units 05/21/24 21:00 05/22/24 08:22 Insulin Glargine 300 Units/3 Ml Insuln.Pen SUBCUT 05/21/25 20:59 20 units BID BRYAN Administration Melatonin 5 mg 05/20/24 03:03 05/21/24 21:26 Melatonin 5 Mg Tablet PO 05/20/25 03:02 5 mg QHS PRN Administration Insomnia Methylprednisolone Sodium Succinate 40 mg 05/21/24 21:00 05/22/24 08:11 Methylprednisolone Sod Succ/Pf 40 Mg/Ml (1ml) Vial IV-PUSH 05/21/25 20:59 40 mg Q12HR BRYAN Administration Ondansetron HCl 4 mg 05/20/24 03:03 Ondansetron 4 Mg/2 Ml Vial IV-PUSH 05/20/25 03:02 Q8H PRN Nausea And Vomiting Pantoprazole Sodium 40 mg 05/20/24 09:00 05/22/24 08:13 Pantoprazole 40 Mg Tablet.Dr CREWS 05/20/25 08:59 40 mg DAILY BRYAN Administration Potassium Chloride 10 meq 05/21/24 13:00 05/22/24 08:12 Potassium Chloride Er 10 Meq Tablet.Er PO 05/21/25 12:59 10 meq DAILY BRYAN Administration Sodium Chloride 10 ml 05/20/24 04:57 Sodium Chloride 0.9 % 10 Ml Syringe IV-PUSH 05/20/25 04:56 PRN PRN Flush Sodium Chloride 0 ml 05/22/24 09:23 Sodium Chloride 0.9 % 10 Ml Syringe IV-PUSH 05/22/25 09:22 PRN PRN Flush Spironolactone 12.5 mg 05/20/24 09:00 05/22/24 08:12 Spironolactone 12.5 Mg Tablet PO 05/20/25 08:59 12.5 mg DAILY BRYAN Administration Terazosin HCl 10 mg 05/20/24 22:00 05/21/24 21:26 Terazosin 5 Mg Capsule PO 05/20/25 21:59 10 mg HS BRYAN Administration Valsartan 40 mg 05/20/24 09:45 05/22/24 08:12 Valsartan 40 Mg Tablet PO 05/20/25 09:44 40 mg BID BRYAN Administration A&P - Hospitalist Assessment/Plan (1) Acute HFrEF (heart failure with reduced ejection fraction): (2) Chronic indwelling Gomez catheter: Plan: This was placed by urologist for urinary retention. Will maintain. (3) Chronic kidney disease: (4) Diabetes: (5) Hypomagnesemia: (6) Acute on chronic hypoxic respiratory failure: (7) Afib: Plan Assessment and Plan: 1. Acute on Chronic HFrEF EF is 20-25% on recent echo, has not been previously optimized on GDMTA due to CKD. Currently on Bumex continuous infusion, responding well. Continue IV diuresis, started valsartan mg BID for afterload reduction monitor input/output cardiology consult appreciated 2. Acute respiratory failure with hypoxia-pt currently down from 5 L to 4L via NC Continue high flow o2, wean as tolerated after diuresis Pulmonology following, checking for vasculitis, ANCA panel pending Patient on IV corticosteroids with Solo-Medrol 40 mg IV every 12 hours Continue ceftriaxone and doxycycline sputum cx negative for growth day 2 3. Chronic Afib V paced rhythm on monitor continue coreg and eliquis 4.Anemia Anemia of chronic disease, elevated ESR and and ferritin with low iron Iron infusion can be considered b12 and folate nl Stool sample negative for occult blood 5. CKD stage III Cr is 1.6 baseline with good response to diuresis, (05/22) cr elevated 1.9 BMP daliy 6. DM2 with hyperglycemia due to corticosteroids hemoglobin A1c 7.5 will increase long acting and short acting insulin and adjust daily 7. Hypomagnesemia, (05/22) 1.6 goal Mg>2.0 Code: DNRCCA with intubation DVT px: as above Diet: heart healthy +++ +++ I saw and personally examined this patient on the date of the encounter. I agree with the documentation as written. I personally discussed the case and formulated the plan of care in conjunction with medical student who began this note, and made adjustments to this document at the time of my signature. - - - Richard Zamora DO. Internal Medicine + Hospitalist attending physician. Documented By: Richard Zamora DO 1058 Signed By: <Electronically signed by Richard Zamora DO> 05/22/24 9192 [facility] Work Phone: 1(915) 630-910803-03-2025 [place] [address] Hospitalist Progress Note Signed Patient: Leighton Arciniega MR#: [id number] : 1945 Acct:[id number] Age/Sex: 78 / M Adm Date: 5 Loc: Room: [address] [place] [address] Type: ADM IN Attending Dr: Richard Zamora DO Copies to: ~ Date of Service: 05/22/2024 Subjective Subjective Narrative: Pt observed sitting up in chair today. His two daughters are present. Pt says heis feeling better today, he says getting out of bed is difficult and makes him short of breath and that his pulse ox drops. He feels like he is breathing better today and producing less sputum. Pt says did not sleep well last night due to difficulty getting comfortable. Pt wears cpap at home, his daughters and himselfagree he is very compliant. Exam: GENERAL: Sitting up in a chair. alert, oriented, comfortable HEENT: NC/AT CARDIOVASCULAR: Regular rate and irregular rhythm, symmetric palpable radial pulses RESPIRATORY: 4L via nasal cannula, basilar crackles b/l, no wheezing. ABDOMEN: Soft, non-tender, non-distended, normal bowel sounds EXTREMITIES: moving all extremities, good perfusion. +1 non-pitting edema LE b/l Exam Physical Exam Vital Signs: Temp Pulse Resp BP Pulse Ox O2 Del Method O2 Flow Rate 97.9 F 69 19 130/63 99 BiPAP 30 05/22/24 05:23 05/22/24 08:10 05/22/24 08:10 05/22/24 08:10 05/22/24 08:10 05/22/24 08:10 05/22/24 08:10 FiO2 30 05/22/24 04:30 Objective Lab Results 05/22/24 05:00 05/22/24 05:00 Microbiology Results Microbiology 05/20/24 18:20 Sputum - Expectorated Aerobic Culture - Final Light Normal Respiratory Elin 2 Days 05/20/24 18:20 Sputum - Expectorated Gram Stain - Final Meds Allergies and Active Meds Allergies fosinopril Allergy (Verified 05/09/24 19:59) SOB metoprolol Allergy (Verified 05/09/24 19:59) Hypotension strawberry Allergy (Verified 05/09/24 19:59) Rash Active Meds: Active Medications Generic Name Dose Route Start Last Admin Trade Name Freq PRN Reason Stop Dose Admin Acetaminophen 650 mg 05/20/24 03:03 05/21/24 21:25 Acetaminophen 325 Mg Tablet PO 05/20/25 03:02 650 mg Q6HR PRN Administration Pain Scale 1 - 3 or fever Albuterol 2.5 mg 05/20/24 05:49 Albuterol Neb 2.5 Mg/3 Ml Vial.Neb INHALATION 05/20/25 05:48 Q4H PRN shortness of breath or wheezing Allopurinol 300 mg 05/20/24 09:00 05/22/24 08:12 Allopurinol 300 Mg Tablet PO 05/20/25 08:59 300 mg DAILY BRYAN Administration Apixaban 5 mg 05/20/24 09:00 05/22/24 08:12 Apixaban 5 Mg Tablet PO 03/01/26 08:59 5 mg BID BRYAN Administration Aspirin 81 mg 05/21/24 09:00 05/21/24 08:01 Aspirin 81 Mg Tablet.Dr PO 05/21/25 08:59 81 mg Delacruz@0900 BRYAN Administration Atorvastatin Calcium 10 mg 05/21/24 21:00 05/21/24 21:26 Atorvastatin 10 Mg Tablet PO 05/21/25 20:59 10 mg QPM BRYAN Administration Carvedilol 6.25 mg 05/20/24 08:00 05/22/24 08:12 Carvedilol 6.25 Mg Tablet PO 05/20/25 07:59 6.25 mg BID.WITH.MEALS BRYAN Administration Dextrose 0 gm 05/20/24 03:54 Dextrose 50% In Water 25 Gm/50 Ml Syringe IV-PUSH 05/20/25 03:53 PRN PRN Hypoglycemia Doxycycline Hyclate 100 mg 05/20/24 21:00 05/22/24 08:13 Doxycycline Hyclate 100 Mg Tablet PO 100 mg BID BRYAN Administration Finasteride 5 mg 05/20/24 09:00 05/22/24 08:12 Finasteride 5 Mg Tablet PO 05/20/25 08:59 5 mg DAILY BRYAN Administration Glucose 0 gm 05/20/24 03:54 Dextrose 40% Gel 15 Gm Tube PO 05/20/25 03:53 PRN PRN Hypoglycemia Bumetanide 24 mg/ IV 96 mls @ 2 mls/hr 05/20/24 04:30 05/21/24 21:58 Miscellaneous Supplies IV 05/20/25 04:29 1 mg/hr .Q24H BRYAN 4 mls/hr Administration 0.5 MG/HR Ceftriaxone Sodium 1 gm in 50 mls @ 100 mls/hr 05/20/24 13:00 05/21/24 13:23 Rocephin IV 100 mls/hr Q24H BRYAN Administration Magnesium Sulfate 4 gm in 100 mls @ 25 mls/hr 05/22/24 10:30 Magnesium Sulf 4 Gm-*Swfi* IV 05/22/24 14:29 ONCE ONE Insulin Aspart 0 units 05/20/24 08:00 05/22/24 08:21 Insulin Aspart 300 Units/3 Ml SUBCUT 05/20/25 07:59 9 units TID.WM.HS BRYAN Administration Protocol Insulin Glargine 20 units 05/21/24 21:00 05/22/24 08:22 Insulin Glargine 300 Units/3 Ml Insuln.Pen SUBCUT 05/21/25 20:59 20 units BID BRYAN Administration Melatonin 5 mg 05/20/24 03:03 05/21/24 21:26 Melatonin 5 Mg Tablet PO 05/20/25 03:02 5 mg QHS PRN Administration Insomnia Methylprednisolone Sodium Succinate 40 mg 05/21/24 21:00 05/22/24 08:11 Methylprednisolone Sod Succ/Pf 40 Mg/Ml (1ml) Vial IV-PUSH 05/21/25 20:59 40 mg Q12HR BRYAN Administration Ondansetron HCl 4 mg 05/20/24 03:03 Ondansetron 4 Mg/2 Ml Vial IV-PUSH 05/20/25 03:02 Q8H PRN Nausea And Vomiting Pantoprazole Sodium 40 mg 05/20/24 09:00 05/22/24 08:13 Pantoprazole 40 Mg Tablet.Dr PO 05/20/25 08:59 40 mg DAILY BRYAN Administration Potassium Chloride 10 meq 05/21/24 13:00 05/22/24 08:12 Potassium Chloride Er 10 Meq Tablet.Er PO 05/21/25 12:59 10 meq DAILY BRYAN Administration Sodium Chloride 10 ml 05/20/24 04:57 Sodium Chloride 0.9 % 10 Ml Syringe IV-PUSH 05/20/25 04:56 PRN PRN Flush Sodium Chloride 0 ml 05/22/24 09:23 Sodium Chloride 0.9 % 10 Ml Syringe IV-PUSH 05/22/25 09:22 PRN PRN Flush Spironolactone 12.5 mg 05/20/24 09:00 05/22/24 08:12 Spironolactone 12.5 Mg Tablet PO 05/20/25 08:59 12.5 mg DAILY BRYAN Administration Terazosin HCl 10 mg 05/20/24 22:00 05/21/24 21:26 Terazosin 5 Mg Capsule PO 05/20/25 21:59 10 mg HS BRYAN Administration Valsartan 40 mg 05/20/24 09:45 05/22/24 08:12 Valsartan 40 Mg Tablet PO 05/20/25 09:44 40 mg BID BRYAN Administration A&P - Hospitalist Assessment/Plan (1) Acute HFrEF (heart failure with reduced ejection fraction): (2) Chronic indwelling Gomez catheter: Plan: This was placed by urologist for urinary retention. Will maintain. (3) Chronic kidney disease: (4) Diabetes: (5) Hypomagnesemia: (6) Acute on chronic hypoxic respiratory failure: (7) Afib: Plan Assessment and Plan: 1. Acute on Chronic HFrEF EF is 20-25% on recent echo, has not been previously optimized on GDMTA due to CKD. Currently on Bumex continuous infusion, responding well. Continue IV diuresis, started valsartan mg BID for afterload reduction monitor input/output cardiology consult appreciated 2. Acute respiratory failure with hypoxia-pt currently down from 5 L to 4L via NC Continue high flow o2, wean as tolerated after diuresis Pulmonology following, checking for vasculitis, ANCA panel pending Patient on IV corticosteroids with Solo-Medrol 40 mg IV every 12 hours Continue ceftriaxone and doxycycline sputum cx negative for growth day 2 3. Chronic Afib V paced rhythm on monitor continue coreg and eliquis 4.Anemia Anemia of chronic disease, elevated ESR and and ferritin with low iron Iron infusion can be considered b12 and folate nl Stool sample negative for occult blood 5. CKD stage III Cr is 1.6 baseline with good response to diuresis, (05/22) cr elevated 1.9 BMP daliy 6. DM2 with hyperglycemia due to corticosteroids hemoglobin A1c 7.5 will increase long acting and short acting insulin and adjust daily 7. Hypomagnesemia, (05/22) 1.6 goal Mg>2.0 Code: DNRCCA with intubation DVT px: as above Diet: heart healthy +++ +++ I saw and personally examined this patient on the date of the encounter. I agree with the documentation as written. I personally discussed the case and formulated the plan of care in conjunction withmedical student who began this note, and made adjustments to this document at the time of my signature. - - - Richard Zamora DO. Internal Medicine + Hospitalist attending physician. Documented By: Richard Zamora DO 1058 Signed By: 05/22/24 1452 [facility]03-02-2025 Progress note Author John Nettles [facility] Note Date/Time May 21, 2024 3:04 pm [facility] [address] [place] [address] Cardiology Progress Note Signed Patient: Leighton Arciniega MR#: [id number] : 1945 Acct:[id number] Age/Sex: 78 / M Adm Date: 5 Loc: Room: [address] [place] [address] Type: ADM IN Attending Dr: Richard Zamora DO Copies to: ~ Date of Service: 05/21/2024 Subjective Interval history: No acute events. Resp status has greatly improved. He is on 4L O2 today and lowell is on 2-3L O2 at home. Is on bumex gtt. Net neg -1844ml yesterday. Exam Physical Exam Vital Signs: Temp Pulse Resp BP Pulse Ox O2 Del Method O2 Flow Rate 98.2 F 69 23 142/66 H 98 BiPAP 6 05/21/24 12:00 05/21/24 15:00 05/21/24 15:00 05/21/24 15:00 05/21/24 15:00 05/21/24 15:00 05/21/24 12:00 FiO2 40 05/21/24 15:00 Narrative: Physical Exam: General: NAD, A&Ox3, Cooperative Head, Eyes: NC/AT, EOMI Lungs: Good air entry; Basilar crackles Heart: S1S2 normal, Irregular rhythm, No murmurs Extremities: No peripheral edema. Abdomen: Soft, non-tender, non-distended. Neuro: CN grossly intact, No focal deficits. Psych: Normal mood & affect. Objective Labs 05/21/24 05:33 05/21/24 05:33 Labs: Laboratory Results - last 24 hr 05/20/24 05/20/24 05/21/24 17:02 21:35 05:33 Corrected WBC 7.7 Uncorrected WBC Count 7.7 RBC 2.38 L Hgb 7.6 L Hct 22.5 L MCV 94.3 MCH 32.1 MCHC 34.0 RDW 16.2 H Plt Count 170 MPV 7.0 Neut % (Auto) 79.2 Lymph % (Auto) 11.5 [place] % (Auto) 6.9 Eos % (Auto) 1.7 Baso % (Auto) 0.7 Nucleat RBC Rel Count 0.0 Neut # (Auto) 6.1 Lymph # (Auto) 0.9 L [place] # (Auto) 0.5 Eos # (Auto) 0.1 Baso # (Auto) 0.1 PHA Creatinine Clear 38.32 Sodium 136 Potassium 3.3 L Chloride 102 Carbon Dioxide 26.6 Anion Gap 10.7 BUN 50 H Creatinine 1.82 H Est GFR (CKD-EPI) 37.550 Glucose 186 H POC Glucose 258 300 POC Glucose Comment Glu2: cleaned meter Glu2: cleaned meter Calcium 8.6 Magnesium 1.8 L 05/21/24 05/21/24 07:52 11:14 Corrected WBC Uncorrected WBC Count RBC Hgb Hct MCV MCH MCHC RDW Plt Count MPV Neut % (Auto) Lymph % (Auto) [place] % (Auto) Eos % (Auto) Baso % (Auto) Nucleat RBC Rel Count Neut # (Auto) Lymph # (Auto) [place] # (Auto) Eos # (Auto) Baso # (Auto) PHA Creatinine Clear Sodium Potassium Chloride Carbon Dioxide Anion Gap BUN Creatinine Est GFR (CKD-EPI) Glucose POC Glucose 209 315 POC Glucose Comment Calcium Magnesium A&P - Cardiology (1) Acute HFrEF (heart failure with reduced ejection fraction): Code(s): I50.21 - Acute systolic (congestive) heart failure (2) Interstitial lung disease: Code(s): J84.9 - Interstitial pulmonary disease, unspecified (3) COPD (chronic obstructive pulmonary disease): Code(s): J44.9 - Chronic obstructive pulmonary disease, unspecified (4) Pulmonary infiltrates: Code(s): R91.8 - Other nonspecific abnormal finding of lung field (5) Afib: Code(s): I48.91 - Unspecified atrial fibrillation (6) Sick sinus syndrome: Code(s): I49.5 - Sick sinus syndrome Plan # Acute respiratory failure 2/2 AE-CHF # Interstitial lung dx vs Organizing PNA on CT Chest # COPD on 2-3L O2 at home # Acute on chronic normocytic anemia - Is 7 on admission, baseline 9. May be renal dx related. # SSS s/p PPM # CKD 3 ? unclear what his baseline sCr is. # HTN ? well-controlled # Other: AFib, DM, VIRGILIO on CPAP, chronic indwelling Gomez catheter due to BPH. 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 Echo 05/11/24 - EF 20-25%, severely dilated LV with moderate LVH, midly dilated RV, mildly dilated LA, trace MR and TR, pacemaker. CXR 05/20/24 - Bilateral pulmonary edema with effusions. -Continue supplemental O2 support. Wean as tolerated. -Continue diuresis with Bumex gtt. Goal net -1-1.5 L/day. -GDMT: Coreg, valsartan, spironolactone. Consider SGLT2i later. -On Eliquis for AFib. -Agree with ABX. -Lexiscan MPI to workup new cardiomypathy on Wednesday if resp status has improved.Will defer that to primary tandem mill sticker. Documented By: John Nettles MD 05/16 1157 Signed By: <Electronically signed by John Nettles MD> 05/21/24 160 [facility] Work Phone: 1(208) 594-854603-02-2025 Progress note Author Richard Zamora [facility] Note Date/Time May 21, 2024 2:48 pm [facility] [address] [place] [address] Hospitalist Progress Note Signed Patient: Leighton Arciniega MR#: [id number] : 1945 Acct:[id number] Age/Sex: 78 / M Adm Date: 5 Loc: Room: [address] [place] [address] Type: ADM IN Attending Dr: Richard Zamora DO Copies to: ~ Date of Service: 05/21/2024 Subjective Subjective Narrative: Says that he feels like his shortness of breath is improving. Last night the patient had to be on Vapotherm high flow nasal cannula system but today he is on5 L oxamide nasal cannula. He does have a cough. He says that he is expectorating a lot of mucus. He denies any chest pain. He denies any nausea or upset stomach. The patient explains that 4 days ago he had his bladder tested at [facility] and a new Gomez catheter placed. He needs to keep the current Gomez catheter in for a month and then hopefully after that it will be able to come out. He knows that he needs some type of prostate procedure down the road. He says that he went through that procedure just 4 days ago without difficulty withno worsening of his breathing. Exam Physical Exam Vital Signs: Temp Pulse Resp BP Pulse Ox O2 Del Method O2 Flow Rate 98.2 F 69 23 142/66 H 98 BiPAP 6 05/21/24 12:00 05/21/24 15:00 05/21/24 15:00 05/21/24 15:00 05/21/24 15:00 05/21/24 15:00 05/21/24 12:00 FiO2 40 05/21/24 15:00 Narrative: General: In the intensive care unit. Awake. Alert. Has been gotten out of bedand placed in a bedside chair. Feeding himself lunch. Pulmonary: Crackles in the bottom half of his lungs and diminished breath soundsin the bottom of the lungs bilaterally. No wheezing. Cardiac: Regular rate and rhythm. No rubs gallops to auscultation. Lower extremities: Trace pitting edema in both lower extremities bilaterally. GI: Abdomen soft, nontender to palpation and normal bowel sounds to auscultation. Objective Lab Results 05/21/24 05:33 05/21/24 05:33 Microbiology Results Microbiology 05/20/24 18:20 Sputum - Expectorated Aerobic Culture - Preliminary No Growth 1 Day 05/20/24 18:20 Sputum - Expectorated Gram Stain - Final 05/20/24 19:45 Stool Stool Occult Blood (HIRAM) - Final Meds Allergies and Active Meds Allergies fosinopril Allergy (Verified 05/09/24 19:59) SOB metoprolol Allergy (Verified 05/09/24 19:59) Hypotension strawberry Allergy (Verified 05/09/24 19:59) Rash Active Meds: Active Medications Generic Name Dose Route Start Last Admin Trade Name Freq PRN Reason Stop Dose Admin Acetaminophen 650 mg 05/20/24 03:03 Acetaminophen 325 Mg Tablet PO 05/20/25 03:02 Q6HR PRN Pain Scale 1 - 3 or fever Albuterol 2.5 mg 05/20/24 05:49 Albuterol Neb 2.5 Mg/3 Ml Vial.Neb INHALATION 05/20/25 05:48 Q4H PRN shortness of breath or wheezing Allopurinol 300 mg 05/20/24 09:00 05/21/24 08:02 Allopurinol 300 Mg Tablet PO 05/20/25 08:59 300 mg DAILY BRYAN Administration Apixaban 5 mg 05/20/24 09:00 05/21/24 08:01 Apixaban 5 Mg Tablet PO 05/20/25 08:59 5 mg BID BRYAN Administration Aspirin 81 mg 05/21/24 09:00 05/21/24 08:01 Aspirin 81 Mg Tablet.Dr PO 05/21/25 08:59 81 mg Delacruz@0900 BRYAN Administration Atorvastatin Calcium 10 mg 05/21/24 21:00 Atorvastatin 10 Mg Tablet PO 05/21/25 20:59 QPM BRYAN Carvedilol 6.25 mg 05/20/24 08:00 05/21/24 07:50 Carvedilol 6.25 Mg Tablet PO 05/20/25 07:59 6.25 mg BID.WITH.MEALS BRYAN Administration Dextrose 0 gm 05/20/24 03:54 Dextrose 50% In Water 25 Gm/50 Ml Syringe IV-PUSH 05/20/25 03:53 PRN PRN Hypoglycemia Doxycycline Hyclate 100 mg 05/20/24 21:00 05/21/24 09:13 Doxycycline Hyclate 100 Mg Tablet PO 100 mg BID BRYAN Administration Finasteride 5 mg 05/20/24 09:00 05/21/24 08:02 Finasteride 5 Mg Tablet PO 05/20/25 08:59 5 mg DAILY BRYAN Administration Glucose 0 gm 05/20/24 03:54 Dextrose 40% Gel 15 Gm Tube PO 05/20/25 03:53 PRN PRN Hypoglycemia Bumetanide 24 mg/ IV 96 mls @ 2 mls/hr 05/20/24 04:30 05/21/24 06:06 Miscellaneous Supplies IV 05/20/25 04:29 Not Given .Q24H BRYAN 0.5 MG/HR Ceftriaxone Sodium 1 gm in 50 mls @ 100 mls/hr 05/20/24 13:00 05/21/24 13:23 Rocephin IV 100 mls/hr Q24H BRYAN Administration Insulin Aspart 0 units 05/20/24 08:00 05/21/24 11:15 Insulin Aspart 300 Units/3 Ml SUBCUT 05/20/25 07:59 10 units TID.WM.HS BRYAN Administration Protocol Insulin Glargine 20 units 05/21/24 21:00 Insulin Glargine 300 Units/3 Ml Insuln.Pen SUBCUT 05/21/25 20:59 BID BRYAN Melatonin 5 mg 05/20/24 03:03 05/20/24 21:39 Melatonin 5 Mg Tablet PO 05/20/25 03:02 5 mg QHS PRN Administration Insomnia Methylprednisolone Sodium Succinate 40 mg 05/21/24 21:00 Methylprednisolone Sod Succ/Pf 40 Mg/Ml (1ml) Vial IV-PUSH 05/21/25 20:59 Q12HR BRYAN Ondansetron HCl 4 mg 05/20/24 03:03 Ondansetron 4 Mg/2 Ml Vial IV-PUSH 05/20/25 03:02 Q8H PRN Nausea And Vomiting Pantoprazole Sodium 40 mg 05/20/24 09:00 05/21/24 08:01 Pantoprazole 40 Mg Tablet.Dr PO 05/20/25 08:59 40 mg DAILY BRYAN Administration Potassium Chloride 10 meq 05/21/24 13:00 05/21/24 13:59 Potassium Chloride Er 10 Meq Tablet.Er PO 05/21/25 12:59 10 meq DAILY BRYAN Administration Sodium Chloride 10 ml 05/20/24 04:57 Sodium Chloride 0.9 % 10 Ml Syringe IV-PUSH 05/20/25 04:56 PRN PRN Flush Spironolactone 12.5 mg 05/20/24 09:00 05/21/24 08:02 Spironolactone 12.5 Mg Tablet PO 05/20/25 08:59 12.5 mg DAILY BRYAN Administration Terazosin HCl 10 mg 05/20/24 22:00 05/20/24 21:39 Terazosin 5 Mg Capsule PO 05/20/25 21:59 10 mg HS BRYAN Administration Valsartan 40 mg 05/20/24 09:45 05/21/24 08:02 Valsartan 40 Mg Tablet PO 05/20/25 09:44 40 mg BID BRYAN Administration A&P - Hospitalist Assessment/Plan (1) Acute HFrEF (heart failure with reduced ejection fraction): (2) Chronic kidney disease: (3) Chronic indwelling Gomez catheter: Plan: ? Maintain ? Was placed for urinary retention and prior admission, he has an appointment with urologist for cystoscopy. (4) Diabetes: (5) Hypomagnesemia: (6) Acute on chronic hypoxic respiratory failure: (7) Afib: Plan Acute on chronic HFrEF -EF is 20-25% on recent echo, hasn't been optimized on GDMT due to CKD. He is currently on IV bumex continuous infusion, and is responding well. -He is on Imdur, spironolactone and coreg at home. -Continue IV diuresis, started valsartan 40 mg BID for afterload reduction -monitor Is and Os -Cardiology consult is appreciated. Acute respiratory failure with hypoxia -Continue high flow O2 and wean as tolated after diuresis -Pulmonology is checking for vasculitis with MARKELL and ANCA testing drawn. -Patient is on IV corticosteroids with Solu-Medrol 40 mg IV every 12 hours and -Broad-spectrum antibiotics with ceftriaxone and doxycycline. Chronic A.fib -V paced rhythm on monitor -Continue coreg and ELiquis Anemia Iron deficiency. -Check ferritin, vitamin B12, and folic acid. -Will consider IV iron depending on how clinical course progresses. CKD stage III -[facility] is 1.6 around baseline with good response to diuresis. -Continue to monitor Diabetes mellitus type 2, with hyperglycemia, due to corticosteroids. -Hemoglobin A1c is pending. -Will intensify dosing of both long-acting and short acting insulin and adjust this daily. Documented By: Richard Zamora DO 1543 Signed By: <Electronically signed by Richard Zamora DO> 05/21/24 154 [facility] Work Phone: 1(148) 705-605203-02-2025 [place] [address] Cardiology Progress Note Signed Patient: Leighton Arciniega MR#: [id number] : 1945 Acct:[id number] Age/Sex: 78 / M Adm Date: 5 Loc: Room: [address] [place] [address] Type: ADM IN Attending Dr: Richard Zamora DO Copies to: ~ Date of Service: 05/21/2024 Subjective Interval history: No acute events. Resp status has greatly improved. He is on 4L O2 today and lowell is on 2-3L O2 athome. Is on bumex gtt. Net neg -1844ml yesterday. Exam Physical Exam Vital Signs: Temp Pulse Resp BP Pulse Ox O2 Del Method O2 Flow Rate 98.2 F 69 23 142/66 H 98 BiPAP 6 05/21/24 12:00 05/21/24 15:00 05/21/24 15:00 05/21/24 15:00 05/21/24 15:00 05/21/24 15:00 05/21/24 12:00 FiO2 40 05/21/24 15:00 Narrative: Physical Exam: General: NAD, A&Ox3, Cooperative Head, Eyes: NC/AT, EOMI Lungs: Good air entry; Basilar crackles Heart: S1S2 normal, Irregular rhythm, No murmurs Extremities: No peripheral edema. Abdomen: Soft, non-tender, non-distended. Neuro: CN grossly intact, No focal deficits. Psych: Normal mood & affect. Objective Labs 05/21/24 05:33 05/21/24 05:33 Labs: Laboratory Results - last 24 hr 05/20/24 05/20/24 05/21/24 17:02 21:35 05:33 Corrected WBC 7.7 Uncorrected WBC Count 7.7 RBC 2.38 L Hgb 7.6 L Hct 22.5 L MCV 94.3 MCH 32.1 MCHC 34.0 RDW 16.2 H Plt Count 170 MPV 7.0 Neut % (Auto) 79.2 Lymph % (Auto) 11.5 [place] % (Auto) 6.9 Eos % (Auto) 1.7 Baso % (Auto) 0.7 Nucleat RBC Rel Count 0.0 Neut # (Auto) 6.1 Lymph # (Auto) 0.9 L [place] # (Auto) 0.5 Eos # (Auto) 0.1 Baso # (Auto) 0.1 PHA Creatinine Clear 38.32 Sodium 136 Potassium 3.3 L Chloride 102 Carbon Dioxide 26.6 Anion Gap 10.7 BUN 50 H Creatinine 1.82 H Est GFR (CKD-EPI) 37.550 Glucose 186 H POC Glucose 258 300 POC Glucose Comment Glu2: cleaned meter Glu2: cleaned meter Calcium 8.6 Magnesium 1.8 L 05/21/24 05/21/24 07:52 11:14 Corrected WBC Uncorrected WBC Count RBC Hgb Hct MCV MCH MCHC RDW Plt Count MPV Neut % (Auto) Lymph % (Auto) [place] % (Auto) Eos % (Auto) Baso % (Auto) Nucleat RBC Rel Count Neut # (Auto) Lymph # (Auto) [place] # (Auto) Eos # (Auto) Baso # (Auto) PHA Creatinine Clear Sodium Potassium Chloride Carbon Dioxide Anion Gap BUN Creatinine Est GFR (CKD-EPI) Glucose POC Glucose 209 315 POC Glucose Comment Calcium Magnesium A&P - Cardiology (1) Acute HFrEF (heart failure with reduced ejection fraction): Code(s): I50.21 - Acute systolic (congestive) heart failure (2) Interstitial lung disease: Code(s): J84.9 - Interstitial pulmonary disease, unspecified (3) COPD (chronic obstructive pulmonary disease): Code(s): J44.9 - Chronic obstructive pulmonary disease, unspecified (4) Pulmonary infiltrates: Code(s): R91.8 - Other nonspecific abnormal finding of lung field (5) Afib: Code(s): I48.91 - Unspecified atrial fibrillation (6) Sick sinus syndrome: Code(s): I49.5 - Sick sinus syndrome Plan # Acute respiratory failure 2/2 AE-CHF # Interstitial lung dx vs Organizing PNA on CT Chest # COPD on 2-3L O2 at home # Acute on chronic normocytic anemia - Is 7 on admission, baseline 9. May be renal dx related. # SSS s/p PPM # CKD 3 ? unclear what his baseline sCr is. # HTN ? well-controlled # Other: AFib, DM, VIRGILIO on CPAP, chronic indwelling Gomez catheter due to BPH. 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 Echo 05/11/24 - EF 20-25%, severely dilated LV with moderate LVH, midly dilated RV, mildly dilated LA, trace MR and TR, pacemaker. CXR 05/20/24 - Bilateral pulmonary edema with effusions. -Continue supplemental O2 support. Wean as tolerated. -Continue diuresis with Bumex gtt. Goal net -1-1.5 L/day. -GDMT: Coreg, valsartan, spironolactone. Consider SGLT2i later. -On Eliquis for AFib. -Agree with ABX. -Lexiscan MPI to workup new cardiomypathy on Wednesday if resp status has improved.Will defer that to primary tandem mill sticker. Documented By: John Nettles MD 05/16 1157 Signed By: 05/21/24 1604 [facility]03-02-2025 Progress note Author Yue Lindsey [facility] Note Date/Time May 21, 2024 12:4 9pm [facility] [address] [place], [place] [id number] Pulmonology Progress Note Signed Patient: Leighton Arciniega MR#: [id number] : 1945 Acct:[id number] Age/Sex: 78 / M Adm Date: 5 Loc: Room: [address] [place] [address] Type: ADM IN Attending Dr: Richard Zamora DO Copies to: ~ Date of Service: 05/21/2024 Subjective Subjective Narrative: He is on 6 L this morning and he feels better he reported that he coughed up a lot of mucus this morning. No hemoptysis. He is using BiPAP on and off. CT chest was done yesterday with small bilateral pleural effusion and bilateral diffuse patchy groundglass infiltrates. He has fine crackles on exam throughoutthe lung Exam Physical Exam Vital Signs: Temp Pulse Resp BP Pulse Ox O2 Del Method O2 Flow Rate 98.2 F 69 22 137/63 91 L BiPAP 6 05/21/24 12:00 05/21/24 12:00 05/21/24 13:00 05/21/24 13:00 05/21/24 13:00 05/21/24 13:00 05/21/24 12:00 FiO2 40 05/21/24 13:00 Narrative: General awake and alert no distress HEENT clear oropharynx Cardiovascular normal S1-S2 Lungs crackles Abdomen soft nontender Extremity no edema Objective Intake and Output I&O - Last 24 Hours: Intake & Output 05/20/24 05/21/24 05/21/24 23:59 07:59 15:59 Intake Total 456 / 781 300 / 675 375 / 675 Output Total 700 / 2850 800 / 1150 350 / 1150 Balance -244 / -2069 -500 / -475 25 / -475 Weight 92.6 kg Labs 05/21/24 05:33 05/21/24 05:33 Microbiology Micro: Microbiology 3 05/20/24 18:20 Aerobic Culture - Preliminary Sputum - Expectorated No Growth 1 Day Gram Stain - Final 05/20/24 19:45 Stool Occult Blood (HIRAM) - Final Stool Assessment/Plan Assessment/Plan (1) Acute on chronic hypoxic respiratory failure: (2) Acute HFrEF (heart failure with reduced ejection fraction): (3) Hemoptysis: (4) Pulmonary infiltrates: (5) COPD (chronic obstructive pulmonary disease): (6) Obstructive sleep apnea: (7) Afib: (8) Chronic kidney disease: (9) Pacemaker: (10) Sick sinus syndrome: (11) Anemia: (12) Diabetes: Plan Acute on chronic respiratory failure Acute on chronic systolic congestive heart failure Persistent pulmonary infiltrates with multiple admissions over the last couple months for pneumonia and CHF Possible pneumonia Hemoptysis Atrial fibrillation on Eliquis Sick sinus syndrome status post pacemaker Anemia History of COPD he was told its mild Obstructive sleep apnea 05/20 Patient had 4 hospitalization over last 2 months and seems to have persistent pulmonary infiltrates which is unclear if it is pulmonary edema only versus presence of another etiology. I will obtain CT chest to evaluate further. He does have a reduced ejection fraction and there is component of pulmonary edema we will continue with diuresis. Other etiologies to be considered include pneumonia, interstitial lung disease, pulmonary hemorrhage I will check BNP, CRP/ESR and MARKELL/ANCA. I will send sputum for cultures I will start empiric antibiotics H&H is down from prior admission, recheck H&H later today. He does report some hemoptysis which can also be seen in pulmonary edema. Titrate oxygen down as tolerated BiPAP at nighttime and as needed After reviewing CT chest will consider adding steroid. He is high risk for bronchoscopy at this point due to high oxygen requirement will reevaluate depending on his course 05/[address] chest I believe he does have interstitial lung disease processsuperimposed on his congestive heart failure and pulmonary edema and its why he is not improving. It is possibly organizing pneumonia. Continue IV Bumex drip, monitor electrolytes and creatinine Sputum cultures are negative, will complete course of antibiotics I will add IV steroid. CRP and ESR are both significantly elevated. Procalcitonin is pending. Autoimmune serologies pending Continue to alternate between BiPAP and cannula. He is off high flow oxygen since this morning Cardiology are following for congestive heart failure reduced ejection fraction and cardiomyopathy Continue Eliquis, H&H has been stable since admission. Time Spent With Patient (min): 32 Documented By: Yue Lindsey MD 05/21/24 8154 Signed By: <Electronically signed by Yue Lindsey MD> 05/21/24 6879 [facility] Work Phone: [phone] [address] Hospitalist Progress Note Signed Patient: Leighton Arciniega MR#: [id number] : 1945 Acct:[id number] Age/Sex: 78 / M Adm Date: 5 Loc: Room: [address] [place] [address] Type: ADM IN Attending Dr: Richard Zamora DO Copies to: ~ Date of Service: 05/21/2024 Subjective Subjective Narrative: Says that he feels like his shortness of breath is improving. Last night the patient had to be on Vapotherm high flow nasal cannula system but today he is on5 L oxamide nasal cannula. He does have a cough. He says that he is expectorating a lot of mucus. He denies any chest pain. He denies any nausea or upset stomach. The patient explains that 4 days ago he had his bladder tested at [facility] and a new Foleycatheter placed. He needs to keep the current Gomez catheter in for a month and then hopefully after that it will be able to come out. He knows that he needs some type of prostate procedure down the road. He says that he went through that procedure just 4 days ago without difficulty withno worsening of his breathing. Exam Physical Exam Vital Signs: Temp Pulse Resp BP Pulse Ox O2 Del Method O2 Flow Rate 98.2 F 69 23 142/66 H 98 BiPAP 6 05/21/24 12:00 05/21/24 15:00 05/21/24 15:00 05/21/24 15:00 05/21/24 15:00 05/21/24 15:05/21/24 12:00 FiO2 40 05/21/24 15:00 Narrative: General: In the intensive care unit. Awake. Alert. Has been gotten out of bedand placed in a bedside chair. Feeding himself lunch. Pulmonary: Crackles in the bottom half of his lungs and diminished breath soundsin the bottom of the lungs bilaterally. No wheezing. Cardiac: Regular rate and rhythm. No rubs gallops to auscultation. Lower extremities: Trace pitting edema in both lower extremities bilaterally. GI: Abdomen soft, nontender to palpation and normal bowel sounds to auscultation. Objective Lab Results 05/21/24 05:33 05/21/24 05:33 Microbiology Results Microbiology 05/20/24 18:20 Sputum - Expectorated Aerobic Culture - Preliminary No Growth 1 Day 05/20/24 18:20 Sputum - Expectorated Gram Stain - Final 05/20/24 19:45 Stool Stool Occult Blood (HIRAM) - Final Meds Allergies and Active Meds Allergies fosinopril Allergy (Verified 05/09/24 19:59) SOB metoprolol Allergy (Verified 05/09/24 19:59) Hypotension strawberry Allergy (Verified 05/09/24 19:59) Rash Active Meds: Active Medications Generic Name Dose Route Start Last Admin Trade Name Freq PRN Reason Stop Dose Admin Acetaminophen 650 mg 05/20/24 03:03 Acetaminophen 325 Mg Tablet PO 05/20/25 03:02 Q6HR PRN Pain Scale 1 - 3 or fever Albuterol 2.5 mg 05/20/24 05:49 Albuterol Neb 2.5 Mg/3 Ml Vial.Neb INHALATION 05/20/25 05:48 Q4H PRN shortness of breath or wheezing Allopurinol 300 mg 05/20/24 09:00 05/21/24 08:02 Allopurinol 300 Mg Tablet PO 05/20/25 08:59 300 mg DAILY BRYAN Administration Apixaban 5 mg 05/20/24 09:00 05/21/24 08:01 Apixaban 5 Mg Tablet PO 05/20/25 08:59 5 mg BID BRYAN Administration Aspirin 81 mg 05/21/24 09:00 05/21/24 08:01 Aspirin 81 Mg Tablet.Dr PO 05/21/25 08:59 81 mg Delacruz@0900 BRYAN Administration Atorvastatin Calcium 10 mg 05/21/24 21:00 Atorvastatin 10 Mg Tablet PO 05/21/25 20:59 QPM BRYAN Carvedilol 6.25 mg 05/20/24 08:00 05/21/24 07:50 Carvedilol 6.25 Mg Tablet PO 05/20/25 07:59 6.25 mg BID.WITH.MEALS BRYAN Administration Dextrose 0 gm 05/20/24 03:54 Dextrose 50% In Water 25 Gm/50 Ml Syringe IV-PUSH 05/20/25 03:53 PRN PRN Hypoglycemia Doxycycline Hyclate 100 mg 05/20/24 21:00 05/21/24 09:13 Doxycycline Hyclate 100 Mg Tablet PO 100 mg BID BRYAN Administration Finasteride 5 mg 05/20/24 09:00 05/21/24 08:02 Finasteride 5 Mg Tablet PO 05/20/25 08:59 5 mg DAILY BRYAN Administration Glucose 0 gm 05/20/24 03:54 Dextrose 40% Gel 15 Gm Tube PO 05/20/25 03:53 PRN PRN Hypoglycemia Bumetanide 24 mg/ IV 96 mls @ 2 mls/hr 05/20/24 04:30 05/21/24 06:06 Miscellaneous Supplies IV 05/20/25 04:29 Not Given .Q24H BRYAN 0.5 MG/HR Ceftriaxone Sodium 1 gm in 50 mls @ 100 mls/hr 05/20/24 13:00 05/21/24 13:23 Rocephin IV 100 mls/hr Q24H BRYAN Administration Insulin Aspart 0 units 05/20/24 08:00 05/21/24 11:15 Insulin Aspart 300 Units/3 Ml SUBCUT 05/20/25 07:59 10 units TID.WM.HS BRYAN Administration Protocol Insulin Glargine 20 units 05/21/24 21:00 Insulin Glargine 300 Units/3 Ml Insuln.Pen SUBCUT 05/21/25 20:59 BID BRYAN Melatonin 5 mg 05/20/24 03:03 05/20/24 21:39 Melatonin 5 Mg Tablet PO 05/20/25 03:02 5 mg QHS PRN Administration Insomnia Methylprednisolone Sodium Succinate 40 mg 05/21/24 21:00 Methylprednisolone Sod Succ/Pf 40 Mg/Ml (1ml) Vial IV-PUSH 05/21/25 20:59 Q12HR BRYAN Ondansetron HCl 4 mg 05/20/24 03:03 Ondansetron 4 Mg/2 Ml Vial IV-PUSH 05/20/25 03:02 Q8H PRN Nausea And Vomiting Pantoprazole Sodium 40 mg 05/20/24 09:00 05/21/24 08:01 Pantoprazole 40 Mg Tablet.Dr PO 05/20/25 08:59 40 mg DAILY BRYAN Administration Potassium Chloride 10 meq 05/21/24 13:00 05/21/24 13:59 Potassium Chloride Er 10 Meq Tablet.Er PO 05/21/25 12:59 10 meq DAILY BRYAN Administration Sodium Chloride 10 ml 05/20/24 04:57 Sodium Chloride 0.9 % 10 Ml Syringe IV-PUSH 05/20/25 04:56 PRN PRN Flush Spironolactone 12.5 mg 05/20/24 09:00 05/21/24 08:02 Spironolactone 12.5 Mg Tablet PO 05/20/25 08:59 12.5 mg DAILY BRYAN Administration Terazosin HCl 10 mg 05/20/24 22:00 05/20/24 21:39 Terazosin 5 Mg Capsule PO 05/20/25 21:59 10 mg HS BRYAN Administration Valsartan 40 mg 05/20/24 09:45 05/21/24 08:02 Valsartan 40 Mg Tablet PO 05/20/25 09:44 40 mg BID BRYAN Administration A&P - Hospitalist Assessment/Plan (1) Acute HFrEF (heart failure with reduced ejection fraction): (2) Chronic kidney disease: (3) Chronic indwelling Gomez catheter: Plan: ? Maintain ? Was placed for urinary retention and prior admission, he has an appointment with urologist for cystoscopy. (4) Diabetes: (5) Hypomagnesemia: (6) Acute on chronic hypoxic respiratory failure: (7) Afib: Plan Acute on chronic HFrEF -EF is 20-25% on recent echo, hasn't been optimized on GDMT due to CKD. He is currently on IV bumexcontinuous infusion, and is responding well. -He is on Imdur, spironolactone and coreg at home. -Continue IV diuresis, started valsartan 40 mg BID for afterload reduction -monitor Is and Os -Cardiology consult is appreciated. Acute respiratory failure with hypoxia -Continue high flow O2 and wean as tolated after diuresis -Pulmonology is checking for vasculitis with MARKELL and ANCA testing drawn. -Patient is on IV corticosteroids with Solu-Medrol 40 mg IV every 12 hours and -Broad-spectrum antibiotics with ceftriaxone and doxycycline. Chronic A.fib -V paced rhythm on monitor -Continue coreg and ELiquis Anemia Iron deficiency. -Check ferritin, vitamin B12, and folic acid. -Will consider IV iron depending on how clinical course progresses. CKD stage III -[facility] is 1.6 around baseline with good response to diuresis. -Continue to monitor Diabetes mellitus type 2, with hyperglycemia, due to corticosteroids. -Hemoglobin A1c is pending. -Will intensify dosing of both long-acting and short acting insulin and adjust this daily. Documented By: Richard Zamora DO [id number] Signed By: 05/21/24 1548 [facility]03-02-2025 [place] [address] Pulmonology Progress Note Signed Patient: Leighton Arciniega MR#: [id number] : 1945 Acct:[id number] Age/Sex: 78 / M Adm Date: 5 Loc: Room: [address] [place] [address] Type: ADM IN Attending Dr: Richard Zamora DO Copies to: ~ Date of Service: 05/21/2024 Subjective Subjective Narrative: He is on 6 L this morning and he feels better he reported that he coughed up a lot of mucus this morning. No hemoptysis. He is using BiPAP on and off. CT chest was done yesterday with small bilateralpleural effusion and bilateral diffuse patchy groundglass infiltrates. He has fine crackles on examthroughoutthe lung Exam Physical Exam Vital Signs: Temp Pulse Resp BP Pulse Ox O2 Del Method O2 Flow Rate 98.2 F 69 22 137/63 91 L BiPAP 6 05/21/24 12:00 05/21/24 12:00 05/21/24 13:00 05/21/24 13:00 05/21/24 13:00 05/21/24 13:00 05/21/24 12:00 FiO2 40 05/21/24 13:00 Narrative: General awake and alert no distress HEENT clear oropharynx Cardiovascular normal S1-S2 Lungs crackles Abdomen soft nontender Extremity no edema Objective Intake and Output I&O - Last 24 Hours: Intake & Output 05/20/24 05/21/24 05/21/24 23:59 07:59 15:59 Intake Total 456 / 781 300 / 675 375 / 675 Output Total 700 / 2850 800 / 1150 350 / 1150 Balance -244 / -206 -500 / -475 25 / -475 Weight 92.6 kg Labs 05/21/24 05:33 05/21/24 05:33 Microbiology Micro: Microbiology 3 05/20/24 18:20 Aerobic Culture - Preliminary Sputum - Expectorated No Growth 1 Day Gram Stain - Final 05/20/24 19:45 Stool Occult Blood (HIRAM) - Final Stool Assessment/Plan Assessment/Plan (1) Acute on chronic hypoxic respiratory failure: (2) Acute HFrEF (heart failure with reduced ejection fraction): (3) Hemoptysis: (4) Pulmonary infiltrates: (5) COPD (chronic obstructive pulmonary disease): (6) Obstructive sleep apnea: (7) Afib: (8) Chronic kidney disease: (9) Pacemaker: (10) Sick sinus syndrome: (11) Anemia: (12) Diabetes: Plan Acute on chronic respiratory failure Acute on chronic systolic congestive heart failure Persistent pulmonary infiltrates with multiple admissions over the last couple months for pneumoniaand CHF Possible pneumonia Hemoptysis Atrial fibrillation on Eliquis Sick sinus syndrome status post pacemaker Anemia History of COPD he was told its mild Obstructive sleep apnea 05/20 Patient had 4 hospitalization over last 2 months and seems to have persistent pulmonary infiltrateswhich is unclear if it is pulmonary edema only versus presence of another etiology. I will obtain CT chest to evaluate further. He does have a reduced ejection fraction and there is component of pulmonary edema we will continue with diuresis. Other etiologies to be considered include pneumonia, interstitial lung disease, pulmonary hemorrhage I will check BNP, CRP/ESR and MARKELL/ANCA. I will send sputum for cultures I will start empiric antibiotics H&H is down from prior admission, recheck H&H later today. He does report some hemoptysis which can also be seen in pulmonary edema. Titrate oxygen down as tolerated BiPAP at nighttime and as needed After reviewing CT chest will consider adding steroid. He is high risk for bronchoscopy at this point due to high oxygen requirement will reevaluate depending on his course 05/[address] chest I believe he does have interstitial lung disease processsuperimposed on hiscongestive heart failure and pulmonary edema and its why he is not improving. It is possibly organizing pneumonia. Continue IV Bumex drip, monitor electrolytes and creatinine Sputum cultures are negative, will complete course of antibiotics I will add IV steroid. CRP and ESR are both significantly elevated. Procalcitonin is pending. Autoimmune serologies pending Continue to alternate between BiPAP and cannula. He is off high flow oxygen since this morning Cardiology are following for congestive heart failure reduced ejection fraction and cardiomyopathy Continue Eliquis, H&H has been stable since admission. Time Spent With Patient (min): 32 Documented By: Yue Lindsey MD 05/21/24 1339 Signed By: 05/21/24 1349 [facility]03-01-2025 Consult note Author John Nettles [facility] Note Date/Time May 20, 2024 2:05 pm [facility] [address] [place] [address] Cardiology Consult Note Signed Patient: Leighton Arciniega MR#: [id number] : 1945 Acct:[id number] Age/Sex: 78 / M Adm Date: 5 Loc: Room: [address] [place] [address] Type: ADM IN Attending Dr: Clau Edwards MD Copies to: MD John Love MD Safwan Khader, MD~ Cardiology HPI History of Present Illness Consult Date: 05/20/24 HPI: Mr. Arciniega is a 78-year-old male who was admitted to [facility] on 05/19/2023 with hypoxic respiratory failure due to pneumonia and CHF. Chest x-rayyesterday shows bilateral opacities due to pneumonia versus CHF. [facility] and underwent diuresis and eventual discharge to SNF. He was discharged on Bumex p.o. which he would have been getting at the SNF. He has known CHF with an EF of 20-25%. Plans were made for outpatient stress MPI and his follow-up appointment at [facility] Cardiology was scheduled for 06/15/2024. However due to worsening respiratory function he is nowreadmitted to the hospital. He was stabilized on BiPAP. Continues to have some coughing but is feeling better. Last [facility] was normal but was at [facility] in 2012. Review of Systems Review of Systems All other systems reviewed & are negative unless noted below or in HPI [facility] Medical History COPD (chronic obstructive pulmonary [...] PRN fever or pain 05/09/24 [History Confirmed 05/20/24] albuterol sulfate 2.5 mg/3 mL (0.083 %) solution for nebulization 2.5 mg inhalation Q4HR PRN shortness of breath or wheezing 05/09/24 [History Confirmed 05/20/24] allopurinol 300 mg tablet 300 mg PO DAILY 05/09/24 [History Confirmed 05/20/24] apixaban 5 mg tablet (Eliquis) 5 mg PO Q12HR 05/09/24 [History Confirmed 05/20/24] aspirin 81 mg capsule 81 mg PO .weekly 05/09/24 [History Confirmed 05/20/24] calcium 315 mg (as citrate)-vitamin D3 5 mcg (200 unit) tablet 1 tab PO DAILY 05/09/24 [History Confirmed 05/20/24] carvedilol 6.25 mg tablet (Coreg) 6.25 mg PO BID 05/09/24 [History Confirmed 05/20/24] finasteride 5 mg tablet 5 mg PO DAILY 05/09/24 [History Confirmed 05/20/24] mecobalamin (vitamin B12) 1,000 mcg chewable tablet 1,000 mcg PO DAILY 05/09/24 [History Confirmed 05/20/24] multivitamin (Daily Multi-Vitamin tablet) 1 tab PO DAILY 05/09/24 [History Confirmed 05/20/24] omeprazole 20 mg capsule,delayed release 20 mg PO DAILY 05/09/24 [History Confirmed 05/20/24] semaglutide 1 mg/dose (4 mg/3 mL) subcutaneous pen injector (Ozempic) 1 mg subcut QWEEK 05/09/24 [History Confirmed 05/20/24] simvastatin 20 mg tablet 20 mg PO DAILY 05/09/24 [History Confirmed 05/20/24] terazosin 10 mg capsule 10 mg PO HS 05/09/24 [History Confirmed 05/20/24] hydralazine 50 mg tablet 50 mg PO BID 30 days #60 tabs 05/12/24 [Rx Confirmed 05/20/24] isosorbide mononitrate 30 mg tablet,extended release 24 hr 30 mg PO QAM 30 days #30 tabs 05/12/24 [Rx Confirmed 05/20/24] bumetanide 0.5 mg tablet 1.5 mg (3 x 0.5 mg) PO DAILY@0800 #0 tabs 05/13/24 [Rx Confirmed 05/20/24] insulin aspart U-100 100 unit/mL (3 mL) subcutaneous pen See Protocol subcut TID.WM.HS #0 mL 05/13/24 [Rx Confirmed 05/20/24] insulin glargine 100 unit/mL (3 mL) subcutaneous pen (Lantus Solostar U-100 Insulin) 8 unit (0.08 mL) subcut QHS #0 mL 05/13/24 [Rx Confirmed 05/20/24] insulin glargine 100 unit/mL (3 mL) subcutaneous pen (Lantus Solostar U-100 Insulin) 18 unit (0.18 mL) subcut DAILY #0 mL 05/13/24 [Rx Confirmed 05/20/24] potassium chloride 10 mEq tablet,extended release 10 meq PO DAILY #30 tabs 05/13/24 [Rx Confirmed 05/20/24] spironolactone 25 mg tablet 12.5 mg (1/2 x 25 mg) PO DAILY #30 tabs 05/13/24 [Rx Confirmed 05/20/24] Exam Physical Exam Vital Signs: Temp Pulse Resp BP Pulse Ox O2 Del Method O2 Flow Rate 98.1 F 80 22 118/58 L 100 BiPAP 40 05/20/24 12:00 05/20/24 14:00 05/20/24 14:00 05/20/24 14:00 05/20/24 14:00 05/20/24 14:00 05/20/24 13:36 FiO2 55 05/20/24 14:00 Narrative: Physical Exam: General: NAD, A&Ox3, Cooperative Head, Eyes: NC/AT, EOMI Lungs: Good air entry; Basilar crackles Heart: S1S2 normal, Irregular rhythm, No murmurs Extremities: + edema. Abdomen: Soft, non-tender, non-distended. Neuro: CN grossly intact, No focal deficits. Psych: Normal mood & affect. Results - Cardiology Labs 05/20/24 13:45 05/20/24 03:06 Lab results: Cardiac Enzymes 05/20/24 05/20/24 Range/Units 03:06 13:44 AST 10 L (13-39) U/L B-Natriuretic Peptide 2348.0 H (5-100) pg/mL CBC 05/20/24 05/20/24 Range/Units 03:06 13:45 RBC 2.34 L 2.48 L (3.90-5.60) x10E6/uL Hgb 7.6 L 8.0 L (13.0-17.0) g/dL Hct 22.1 L 23.7 L (38.8-50.0) % Plt Count 148 L 155 (150-450) x10E3/uL Neut # (Auto) 7.9 H (1.8-7.7) x10E3/uL Lymph # (Auto) 0.8 L (1.00-4.8) x10E3/uL [place] # (Auto) 0.6 (0.0-0.8) x10E3/uL Eos # (Auto) 0.0 (0.0-0.45) x10E3/uL Baso # (Auto) 0.1 (0.0-0.2) x10E3/uL Comprehensive Metabolic Panel 05/20/24 Range/Units 03:06 Sodium 135 L (136-145) mmol/L Potassium 3.6 (3.5-5.1) mmol/L Chloride 102 (98-107) mmol/L Carbon Dioxide 23.0 (21.0-31.0) mmol/L BUN 45 H (7-25) mg/dL Creatinine 1.63 H (0.70-1.30) mg/dL Glucose 165 H (70-100) mg/dL Calcium 8.1 L (8.6-10.3) mg/dL AST 10 L (13-39) U/L ALT 9 (7-52) U/L Alkaline Phosphatase 52 (34-104) U/L Total Protein 5.0 L (6.4-8.9) gm/dL Albumin 2.7 L (3.5-5.7) gm/dL Intake and Output 05/19/24 05/20/24 05/20/24 22:59 06:59 14:59 Intake Total 300 / 300 Output Total 750 / 750 1400 / 1400 Balance -725 / -725 -1100 / -1100 Intake: IV 50 / 50 Magnesium Sulf 2Gm-*Swfi* 2 gm 50 / 50 In 50 ml @ 25 mls/hr IV ONCE ONE Rx#:[id number] Oral 250 / 250 Output: Urine Amount (Catheter) 750 / 750 1400 / 1400 Urethral (Gomez) 750 / 750 1400 / 1400 Other: # Bowel Movements 1 Weight 93 kg Date of Last Bowel Movement 05/20/24 05/20/24 A&P - Cardiology (1) COPD (chronic obstructive pulmonary disease): Code(s): J44.9 - Chronic obstructive pulmonary disease, unspecified (2) Pulmonary infiltrates: Code(s): R91.8 - Other nonspecific abnormal finding of lung field (3) Afib: Code(s): I48.91 - Unspecified atrial fibrillation (4) Sick sinus syndrome: Code(s): I49.5 - Sick sinus syndrome (5) Acute HFrEF (heart failure with reduced ejection fraction): Code(s): I50.21 - Acute systolic (congestive) heart failure Plan # Acute respiratory failure 2/2 CHF versus pneumonia # Acute on chronic normocytic anemia - Is 7 on admission, baseline 9. May be renal dx related. # SSS s/p PPM # CKD 3 ? unclear what his baseline sCr is. # HTN ? well-controlled # Other: AFib, DM, VIRGILIO on CPAP, COPD, chronic indwelling Gomez catheter due to BPH. LHC in 2013 at [facility] - was normal per notes. Echo 05/11/24 - EF 20-25%, severely dilated LV with moderate LVH, midly dilated RV, mildly dilated LA, trace MR and TR, pacemaker. CXR 05/20/24 - Bilateral pulmonary edema with effusions. -Continue supplemental O2 support. Wean as tolerated. -Agree with ABX. -Continue diuresis. Goal net -1-1.5 L/day. -GDMT: Coreg, valsartan, spironolactone. Consider SGLT2i later. -On Eliquis for AFib. -Lexiscan MPI on Wednesday if resp status has improved. Documented By: John Nettles MD 04/15 1251 Signed By: <Electronically signed by John Nettles MD> 05/20/24 1506 [facility] Work Phone: [phone] 534-529903-01-2025 [place] [address] Cardiology Consult Note Signed Patient: Leighton Arciniega MR#: [id number] : 1945 Acct:[id number] Age/Sex: 78 / M Adm Date: 5 Loc: Room: [address] [place] [address] Type: ADM IN Attending Dr: Clau Edwards MD Copies to: MD John Love MD Safwan Khader, MD~ Cardiology HPI History of Present Illness Consult Date: 05/20/24 HPI: Mr. Arciniega is a 78-year-old male who was admitted to [facility] on 05/19/2023 with hypoxic respiratory failure due to pneumonia and CHF. Chest x- rayyesterday shows bilateral opacities due to pneumonia versus CHF. He was [facility] and underwent diuresis and eventual discharge to SNF. He was discharged on Bumex p.o. which he would have been getting atthe SNF. He has known CHF with an EF of 20-25%. Plans were made for outpatient stress MPI and his follow-up appointment at [facility] Cardiology was scheduled for 06/15/2024. However due to worsening respiratory function he is nowreadmitted to the hospital. He was stabilized on BiPAP. Continues to have some coughing but is feeling better. Last [facility] was normal but was at [facility] in 2013. Review of Systems Review of Systems All other systems reviewed & are negative unless noted below or in HPI [facility] Medical History COPD (chronic obstructive pulmonary [...] PRN fever or pain 05/09/24 [History Confirmed 05/20/24] albuterol sulfate 2.5 mg/3 mL (0.083 %) solution for nebulization 2.5 mg inhalation Q4HR PRN shortness of breath or wheezing 05/09/24 [History Confirmed 05/20/24] allopurinol 300 mg tablet 300 mg PO DAILY 05/09/24 [History Confirmed 05/20/24] apixaban 5 mg tablet (Eliquis) 5 mg PO Q12HR 05/09/24 [History Confirmed 05/20/24] aspirin 81 mg capsule 81 mg PO .weekly 05/09/24 [History Confirmed 05/20/24] calcium 315 mg (as citrate)-vitamin D3 5 mcg (200 unit) tablet 1 tab PO DAILY 05/09/24 [History Confirmed 05/20/24] carvedilol 6.25 mg tablet (Coreg) 6.25 mg PO BID 05/09/24 [History Confirmed 05/20/24] finasteride 5 mg tablet 5 mg PO DAILY 05/09/24 [History Confirmed 05/20/24] mecobalamin (vitamin B12) 1,000 mcg chewable tablet 1,000 mcg PO DAILY 05/09/24 [History Confirmed 05/20/24] multivitamin (Daily Multi-Vitamin tablet) 1 tab PO DAILY 05/09/24 [History Confirmed 05/20/24] omeprazole 20 mg capsule,delayed release 20 mg PO DAILY 05/09/24 [History Confirmed 05/20/24] semaglutide 1 mg/dose (4 mg/3 mL) subcutaneous pen injector (Ozempic) 1 mg subcut QWEEK 05/09/24 [History Confirmed 05/20/24] simvastatin 20 mg tablet 20 mg PO DAILY 05/09/24 [History Confirmed 05/20/24] terazosin 10 mg capsule 10 mg PO HS 05/09/24 [History Confirmed 05/20/24] hydralazine 50 mg tablet 50 mg PO BID 30 days #60 tabs 05/12/24 [Rx Confirmed 05/20/24] isosorbide mononitrate 30 mg tablet,extended release 24 hr 30 mg PO QAM 30 days #30 tabs 05/12/24 [Rx Confirmed 05/20/24] bumetanide 0.5 mg tablet 1.5 mg (3 x 0.5 mg) PO DAILY@0800 #0 tabs 05/13/24 [Rx Confirmed 05/20/24] insulin aspart U-100 100 unit/mL (3 mL) subcutaneous pen See Protocol subcut TID.WM.HS #0 mL 05/13/24 [Rx Confirmed 05/20/24] insulin glargine 100 unit/mL (3 mL) subcutaneous pen (Lantus Solostar U-100 Insulin) 8 unit (0.08 mL) subcut QHS #0 mL 05/13/24 [Rx Confirmed 05/20/24] insulin glargine 100 unit/mL (3 mL) subcutaneous pen (Lantus Solostar U-100 Insulin) 18 unit (0.18 mL) subcut DAILY #0 mL 05/13/24 [Rx Confirmed 05/20/24] potassium chloride 10 mEq tablet,extended release 10 meq PO DAILY #30 tabs 05/13/24 [Rx Confirmed 05/20/24] spironolactone 25 mg tablet 12.5 mg (1/2 x 25 mg) PO DAILY #30 tabs 05/13/24 [Rx Confirmed 05/20/24] Exam Physical Exam Vital Signs: Temp Pulse Resp BP Pulse Ox O2 Del Method O2 Flow Rate 98.1 F 80 22 118/58 L 100 BiPAP 40 05/20/24 12:00 05/20/24 14:00 05/20/24 14:00 05/20/24 14:00 05/20/24 14:00 05/20/24 14:00 05/20/24 13:36 FiO2 55 05/20/24 14:00 Narrative: Physical Exam: General: NAD, A&Ox3, Cooperative Head, Eyes: NC/AT, EOMI Lungs: Good air entry; Basilar crackles Heart: S1S2 normal, Irregular rhythm, No murmurs Extremities: + edema. Abdomen: Soft, non-tender, non-distended. Neuro: CN grossly intact, No focal deficits. Psych: Normal mood & affect. Results - Cardiology Labs 05/20/24 13:45 05/20/24 03:06 Lab results: Cardiac Enzymes 05/20/24 05/20/24 Range/Units 03:06 13:44 AST 10 L (13-39) U/L B-Natriuretic Peptide 2348.0 H (5-100) pg/mL CBC 05/20/24 05/20/24 Range/Units 03:06 13:45 RBC 2.34 L 2.48 L (3.90-5.60) x10E6/uL Hgb 7.6 L 8.0 L (13.0-17.0) g/dL Hct 22.1 L 23.7 L (38.8-50.0) % Plt Count 148 L 155 (150-450) x10E3/uL Neut # (Auto) 7.9 H (1.8-7.7) x10E3/uL Lymph # (Auto) 0.8 L (1.00-4.8) x10E3/uL [place] # (Auto) 0.6 (0.0-0.8) x10E3/uL Eos # (Auto) 0.0 (0.0-0.45) x10E3/uL Baso # (Auto) 0.1 (0.0-0.2) x10E3/uL Comprehensive Metabolic Panel 05/20/24 Range/Units 03:06 Sodium 135 L (136-145) mmol/L Potassium 3.6 (3.5-5.1) mmol/L Chloride 102 (98-107) mmol/L Carbon Dioxide 23.0 (21.0-31.0) mmol/L BUN 45 H (7-25) mg/dL Creatinine 1.63 H (0.70-1.30) mg/dL Glucose 165 H (70-100) mg/dL Calcium 8.1 L (8.6-10.3) mg/dL AST 10 L (13-39) U/L ALT 9 (7-52) U/L Alkaline Phosphatase 52 (34-104) U/L Total Protein 5.0 L (6.4-8.9) gm/dL Albumin 2.7 L (3.5-5.7) gm/dL Intake and Output 05/19/24 05/20/24 05/20/24 22:59 06:59 14:59 Intake Total 300 / 300 Output Total 750 / 750 1400 / 1400 Balance -725 / -725 -1100 / -1100 Intake: IV 50 / 50 Magnesium Sulf 2Gm-*Swfi* 2 gm 50 / 50 In 50 ml @ 25 mls/hr IV ONCE ONE Rx#:[id number] Oral 250 / 250 Output: Urine Amount (Catheter) 750 / 750 1400 / 1400 Urethral (Gomez) 750 / 750 1400 / 1400 Other: # Bowel Movements 1 Weight 93 kg Date of Last Bowel Movement 05/20/24 05/20/24 A&P - Cardiology (1) COPD (chronic obstructive pulmonary disease): Code(s): J44.9 - Chronic obstructive pulmonary disease, unspecified (2) Pulmonary infiltrates: Code(s): R91.8 - Other nonspecific abnormal finding of lung field (3) Afib: Code(s): I48.91 - Unspecified atrial fibrillation (4) Sick sinus syndrome: Code(s): I49.5 - Sick sinus syndrome (5) Acute HFrEF (heart failure with reduced ejection fraction): Code(s): I50.21 - Acute systolic (congestive) heart failure Plan # Acute respiratory failure 2/2 CHF versus pneumonia # Acute on chronic normocytic anemia - Is 7 on admission, baseline 9. May be renal dx related. # SSS s/p PPM # CKD 3 ? unclear what his baseline sCr is. # HTN ? well-controlled # Other: AFib, DM, VIRGILIO on CPAP, COPD, chronic indwelling Gomez catheter due to BPH. [facility] in 2012 at [facility] - was normal per notes. Echo 05/11/24 - EF 20-25%, severely dilated LV with moderate LVH, midly dilated RV, mildly dilated LA, trace MR and TR, pacemaker. CXR 05/20/24 - Bilateral pulmonary edema with effusions. -Continue supplemental O2 support. Wean as tolerated. -Agree with ABX. -Continue diuresis. Goal net -1-1.5 L/day. -GDMT: Coreg, valsartan, spironolactone. Consider SGLT2i later. -On Eliquis for AFib. -Lexiscan MPI on Wednesday if resp status has improved. Documented By: John Nettles MD 04/15 1259 Signed By: 05/20/24 1505 [facility]03-01-2025 Consult note Author Yue Lindsey [facility] Note Date/Time May 20, 2024 11:4 8am [facility] [address] [place] [address] Pulmonology Consult Note Signed Patient: Leighton Arciniega MR#: [id number] : 1945 Acct:[id number] Age/Sex: 78 / M Adm Date: 5 Loc: Room: [address] [place] [address] Type: ADM IN Attending Dr: Clau Edwards MD Copies to: MD Lori Nevarez MD Safwan Khader, MD~ HPI Date/Time of Consultation: Date of Service: 05/20/2024 Time of Service: 12:29 Consulting Provider: Yue Lindsey Requesting Provider: Clau Edwards Reason for Consult: Acute respiratory failure History of Present Illness History of present illness: This is a 78-year-old man with past medical history significant for sick sinus syndrome status post pacemaker, paroxysmal atrial fibrillation on Eliquis, COPD,obstructive sleep apnea on CPAP chronic kidney disease, diabetes, congestive heart failure and recently worsening ejection fraction 20%. The patient had multiple hospital admissions to [facility] and [facility] over last 2 months. He was hospitalized twice in [facility] and he was told he has pneumonia and has been requiring supplemental oxygen since then he was hospitalized in [facility] couple weeks ago and was found to have reduced ejection fraction 20% he [facility] He was having worsening shortness of breath, cough and bloody sputum and reported fever. He was in [facility] ED and transferred to [facility]. Chest x-ray with bilateral patchy infiltrates worse on the right side. He is currently on Bumex drip he is on high flow oxygen 60% FiO2 and alternating with BiPAP Review of Systems Constitutional Constitutional: Reports as per [facility] Medical History (Updated 05/20/24 @ 12:39 by Yue Lindsey MD) COPD (chronic obstructive pulmonary disease) VIRGILIO on [...] PRN fever or pain 05/09/24 [History Confirmed 05/20/24] albuterol sulfate 2.5 mg/3 mL (0.083 %) solution for nebulization 2.5 mg inhalation Q4HR PRN shortness of breath or wheezing 05/09/24 [History Confirmed 05/20/24] allopurinol 300 mg tablet 300 mg PO DAILY 05/09/24 [History Confirmed 05/20/24] apixaban 5 mg tablet (Eliquis) 5 mg PO Q12HR 05/09/24 [History Confirmed 05/20/24] aspirin 81 mg capsule 81 mg PO .weekly 05/09/24 [History Confirmed 05/20/24] calcium 315 mg (as citrate)-vitamin D3 5 mcg (200 unit) tablet 1 tab PO DAILY 05/09/24 [History Confirmed 05/20/24] carvedilol 6.25 mg tablet (Coreg) 6.25 mg PO BID 05/09/24 [History Confirmed 05/20/24] finasteride 5 mg tablet 5 mg PO DAILY 05/09/24 [History Confirmed 05/20/24] mecobalamin (vitamin B12) 1,000 mcg chewable tablet 1,000 mcg PO DAILY 05/09/24 [History Confirmed 05/20/24] multivitamin (Daily Multi-Vitamin tablet) 1 tab PO DAILY 05/09/24 [History Confirmed 05/20/24] omeprazole 20 mg capsule,delayed release 20 mg PO DAILY 05/09/24 [History Confirmed 05/20/24] semaglutide 1 mg/dose (4 mg/3 mL) subcutaneous pen injector (Ozempic) 1 mg subcut QWEEK 05/09/24 [History Confirmed 05/20/24] simvastatin 20 mg tablet 20 mg PO DAILY 05/09/24 [History Confirmed 05/20/24] terazosin 10 mg capsule 10 mg PO HS 05/09/24 [History Confirmed 05/20/24] hydralazine 50 mg tablet 50 mg PO BID 30 days #60 tabs 05/12/24 [Rx Confirmed 05/20/24] isosorbide mononitrate 30 mg tablet,extended release 24 hr 30 mg PO QAM 30 days #30 tabs 05/12/24 [Rx Confirmed 05/20/24] bumetanide 0.5 mg tablet 1.5 mg (3 x 0.5 mg) PO DAILY@0800 #0 tabs 05/13/24 [Rx Confirmed 05/20/24] insulin aspart U-100 100 unit/mL (3 mL) subcutaneous pen See Protocol subcut TID.WM.HS #0 mL 05/13/24 [Rx Confirmed 05/20/24] insulin glargine 100 unit/mL (3 mL) subcutaneous pen (Lantus Solostar U-100 Insulin) 8 unit (0.08 mL) subcut QHS #0 mL 05/13/24 [Rx Confirmed 05/20/24] insulin glargine 100 unit/mL (3 mL) subcutaneous pen (Lantus Solostar U-100 Insulin) 18 unit (0.18 mL) subcut DAILY #0 mL 05/13/24 [Rx Confirmed 05/20/24] potassium chloride 10 mEq tablet,extended release 10 meq PO DAILY #30 tabs 05/13/24 [Rx Confirmed 05/20/24] spironolactone 25 mg tablet 12.5 mg (1/2 x 25 mg) PO DAILY #30 tabs 05/13/24 [Rx Confirmed 05/20/24] Exam Physical Exam Vital Signs: Temp Pulse Resp BP Pulse Ox O2 Del Method O2 Flow Rate 98.1 F 84 24 139/68 98 BiPAP 40 05/20/24 12:00 05/20/24 12:00 05/20/24 12:00 05/20/24 12:00 05/20/24 12:00 05/20/24 12:00 05/20/24 10:00 FiO2 65 05/20/24 12:00 Narrative: General awake and alert no distress HEENT clear oropharynx Cardiovascular normal S1-S2 Lungs crackles Abdomen soft nontender Extremity no edema Results - Pulmonology Intake and Output I&O - Last 24 Hours: Intake & Output 05/19/24 05/20/24 05/20/24 23:59 07:59 15:59 Intake Total 25 / 275 250 / 275 Output Total 750 / 1400 650 / 1400 Balance -725 / -1125 -400 / -1125 Weight 93 kg Labs 05/20/24 03:06 05/20/24 03:06 Assessment/Plan (1) Acute on chronic hypoxic respiratory failure: (2) Acute HFrEF (heart failure with reduced ejection fraction): (3) Hemoptysis: (4) Pulmonary infiltrates: (5) COPD (chronic obstructive pulmonary disease): (6) Obstructive sleep apnea: (7) Afib: (8) Chronic kidney disease: (9) Pacemaker: (10) Sick sinus syndrome: (11) Anemia: (12) Diabetes: Plan Acute on chronic respiratory failure Acute on chronic systolic congestive heart failure Persistent pulmonary infiltrates Possible pneumonia Hemoptysis Atrial fibrillation on Eliquis Sick sinus syndrome status post pacemaker Anemia History of COPD he was told its mild Obstructive sleep apnea Patient had 4 hospitalization over last 2 months and seems to have persistent pulmonary infiltrates which is unclear if it is pulmonary edema only versus presence of another etiology. I will obtain CT chest to evaluate further. He does have a reduced ejection fraction and there is component of pulmonary edema we will continue with diuresis. Other etiologies to be considered include pneumonia, interstitial lung disease, pulmonary hemorrhage I will check BNP, CRP/ESR and MARKELL/ANCA. I will send sputum for cultures I will start empiric antibiotics H&H is down from prior admission, recheck H&H later today. He does report some hemoptysis which can also be seen in pulmonary edema. Titrate oxygen down as tolerated BiPAP at nighttime and as needed After reviewing CT chest will consider adding steroid. He is high risk for bronchoscopy at this point due to high oxygen requirement will reevaluate depending on his course Critical Care Time: 33 Documented By: Yue Lindsey MD 05/20/24 1229 Signed By: <Electronically signed by Yue Lindsey MD> 05/20/24 1240 [facility] Work Phone: [phone]) 563-326403-01-2025 Radiology Diagnostic study [facility] [place] [address] [place] [address] CT Scan Report Signed Patient: Leighton Arciniega MR#: [id number] : 1945 Acct:[id number] Age/Sex: 78 / M ADM Date: 5 Loc: Room: [address] [place] [address] Type: ADM IN Attending Dr: Clau Edwards MD Copies to: MD Clau Nevarez MD~ Ordering Provider: Yue Lindsey MD Date of Service: 05/20/24 CT/CT chest wo con: Pulmonary infiltrates CT CHEST WITHOUT IV CONTRAST: CLINICAL HISTORY: Respiratory distress. COMPARISON: CT chest 05/20/2024 TECHNIQUE: Spiral images were obtained through the chest without IV contrast. This CT exam was performed using one or more following dose reduction techniques: Automated exposure control, adjustment of the mA and/or kV accordingto patient size, or use of iterative reconstruction technique. FINDINGS: Mediastinum:Thoracic aorta demonstrates moderate calcification without aneurysm. Pacemaker device. Cardiomegaly. No pleural effusion. Pulmonary trunk appearsnondilated. Multiple prominent mediastinallymph nodes largest involving the pretracheal region measuring 1 cm in short axis. The esophagus isgrossly unremarkable. Lungs:Small bilateral pleural effusions. Scattered areas of groundglass/septal thickening. No pneumothorax. Trachea and distal airways appear patent. Abd:No acute process. Soft tissues/Bones: No acute process. Osseous structures demonstrate degenerative change. CT/CT chest wo con IMPRESSION: Scattered areas of groundglass and septal thickening with small bilateral pleural effusions. Findings may relate to CHF/pulmonary edema given the cardiomegaly. An atypical infectious process cannot BE excluded. CT follow-up is recommended to ensure resolution. Impression dictated by: Swapnil Edwards Jr., D.OAnisa05/20/2024 1:14 PM Dictation Location: [facility]-18 Transcribed By: [facility] 05/20/24 1314 Dictated By: Swapnil Edwards Jr, DO 05/20/24 1312 Signed By: 05/20/24 1314 [facility]03-01-2025 [place] [address] Pulmonology Consult Note Signed Patient: Leighton Arciniega MR#: [id number] : 1945 Acct:[id number] Age/Sex: 78 / M Adm Date: 5 Loc: Room: [address] [place] [address] Type: ADM IN Attending Dr: Clau Edwards MD Copies to: MD Lori Nevarez MD Safwan Khader, MD~ HPI Date/Time of Consultation: Date of Service: 05/20/2024 Time of Service: 12:29 Consulting Provider: Yue Lindsey Requesting Provider: Clau Edwards Reason for Consult: Acute respiratory failure History of Present Illness History of present illness: This is a 78-year-old man with past medical history significant for sick sinus syndrome status postpacemaker, paroxysmal atrial fibrillation on Eliquis, COPD,obstructive sleep apnea on CPAP chronic kidney disease, diabetes, congestive heart failure and recently worsening ejection fraction 20%. The patient had multiple hospital admissions to [facility] and [facility] over last 2 months. He was hospitalized twice in [place] and he was told he has pneumonia and has been requiring supplemental oxygen since then he was hospitalized in [facility] couple weeks ago and was found to have reduced ejection fraction 20% he was [facility]. He was having worsening shortness of breath, cough and bloody sputum and reported fever. He was in [facility] ED and transferred to [facility] ICU. Chest x-ray with bilateral patchy infiltrates worse on the right side. He is currently on Bumex drip he is on high flow oxygen 60% FiO2 and alternating with BiPAP Review of Systems Constitutional Constitutional: Reports as per [facility] Medical History (Updated 05/20/24 @ 12:39 by Yue Lindsey MD) COPD (chronic obstructive pulmonary disease) VIRGILIO on [...] PRN fever or pain 05/09/24 [History Confirmed 05/20/24] albuterol sulfate 2.5 mg/3 mL (0.083 %) solution for nebulization 2.5 mg inhalation Q4HR PRN shortness of breath or wheezing 05/09/24 [History Confirmed 05/20/24] allopurinol 300 mg tablet 300 mg PO DAILY 05/09/24 [History Confirmed 05/20/24] apixaban 5 mg tablet (Eliquis) 5 mg PO Q12HR 05/09/24 [History Confirmed 05/20/24] aspirin 81 mg capsule 81 mg PO .weekly 05/09/24 [History Confirmed 05/20/24] calcium 315 mg (as citrate)-vitamin D3 5 mcg (200 unit) tablet 1 tab PO DAILY 05/09/24 [History Confirmed 05/20/24] carvedilol 6.25 mg tablet (Coreg) 6.25 mg PO BID 05/09/24 [History Confirmed 05/20/24] finasteride 5 mg tablet 5 mg PO DAILY 05/09/24 [History Confirmed 05/20/24] mecobalamin (vitamin B12) 1,000 mcg chewable tablet 1,000 mcg PO DAILY 05/09/24 [History Confirmed 05/20/24] multivitamin (Daily Multi-Vitamin tablet) 1 tab PO DAILY 05/09/24 [History Confirmed 05/20/24] omeprazole 20 mg capsule,delayed release 20 mg PO DAILY 05/09/24 [History Confirmed 05/20/24] semaglutide 1 mg/dose (4 mg/3 mL) subcutaneous pen injector (Ozempic) 1 mg subcut QWEEK 05/09/24 [History Confirmed 05/20/24] simvastatin 20 mg tablet 20 mg PO DAILY 05/09/24 [History Confirmed 05/20/24] terazosin 10 mg capsule 10 mg PO HS 05/09/24 [History Confirmed 05/20/24] hydralazine 50 mg tablet 50 mg PO BID 30 days #60 tabs 05/12/24 [Rx Confirmed 05/20/24] isosorbide mononitrate 30 mg tablet,extended release 24 hr 30 mg PO QAM 30 days #30 tabs 05/12/24 [Rx Confirmed 05/20/24] bumetanide 0.5 mg tablet 1.5 mg (3 x 0.5 mg) PO DAILY@0800 #0 tabs 05/13/24 [Rx Confirmed 05/20/24] insulin aspart U-100 100 unit/mL (3 mL) subcutaneous pen See Protocol subcut TID.WM.HS #0 mL 05/13/24 [Rx Confirmed 05/20/24] insulin glargine 100 unit/mL (3 mL) subcutaneous pen (Lantus Solostar U-100 Insulin) 8 unit (0.08 mL) subcut QHS #0 mL 05/13/24 [Rx Confirmed 05/20/24] insulin glargine 100 unit/mL (3 mL) subcutaneous pen (Lantus Solostar U-100 Insulin) 18 unit (0.18 mL) subcut DAILY #0 mL 05/13/24 [Rx Confirmed 05/20/24] potassium chloride 10 mEq tablet,extended release 10 meq PO DAILY #30 tabs 05/13/24 [Rx Confirmed 05/20/24] spironolactone 25 mg tablet 12.5 mg (1/2 x 25 mg) PO DAILY #30 tabs 05/13/24 [Rx Confirmed 05/20/24] Exam Physical Exam Vital Signs: Temp Pulse Resp BP Pulse Ox O2 Del Method O2 Flow Rate 98.1 F 84 24 139/68 98 BiPAP 40 05/20/24 12:00 05/20/24 12:00 05/20/24 12:00 05/20/24 12:00 05/20/24 12:00 05/20/24 12:00 05/20/24 10:00 FiO2 65 05/20/24 12:00 Narrative: General awake and alert no distress HEENT clear oropharynx Cardiovascular normal S1-S2 Lungs crackles Abdomen soft nontender Extremity no edema Results - Pulmonology Intake and Output I&O - Last 24 Hours: Intake & Output 05/19/24 05/20/24 05/20/24 23:59 07:59 15:59 Intake Total 25 / 275 250 / 275 Output Total 750 / 1400 650 / 1400 Balance -725 / -1125 -400 / -1125 Weight 93 kg Labs 05/20/24 03:06 05/20/24 03:06 Assessment/Plan (1) Acute on chronic hypoxic respiratory failure: (2) Acute HFrEF (heart failure with reduced ejection fraction): (3) Hemoptysis: (4) Pulmonary infiltrates: (5) COPD (chronic obstructive pulmonary disease): (6) Obstructive sleep apnea: (7) Afib: (8) Chronic kidney disease: (9) Pacemaker: (10) Sick sinus syndrome: (11) Anemia: (12) Diabetes: Plan Acute on chronic respiratory failure Acute on chronic systolic congestive heart failure Persistent pulmonary infiltrates Possible pneumonia Hemoptysis Atrial fibrillation on Eliquis Sick sinus syndrome status post pacemaker Anemia History of COPD he was told its mild Obstructive sleep apnea Patient had 4 hospitalization over last 2 months and seems to have persistent pulmonary infiltrateswhich is unclear if it is pulmonary edema only versus presence of another etiology. I will obtain CT chest to evaluate further. He does have a reduced ejection fraction and there is component of pulmonary edema we will continue with diuresis. Other etiologies to be considered include pneumonia, interstitial lung disease, pulmonary hemorrhage I will check BNP, CRP/ESR and MARKELL/ANCA. I will send sputum for cultures I will start empiric antibiotics H&H is down from prior admission, recheck H&H later today. He does report some hemoptysis which can also be seen in pulmonary edema. Titrate oxygen down as tolerated BiPAP at nighttime and as needed After reviewing CT chest will consider adding steroid. He is high risk for bronchoscopy at this point due to high oxygen requirement will reevaluate depending on his course Critical Care Time: 33 Documented By: Yue Lindsey MD 05/20/24 1229 Signed By: 05/20/24 1248 [facility]03-01-2025 Progress note Author Clau Edwards [facility] Note Date/Time May 20, 2024 8:51 am [facility] [address] [place] [address] Hospitalist Progress Note Signed Patient: Leighton Arciniega MR#: [id number] : 1945 Acct:[id number] Age/Sex: 78 / M Adm Date: 5 Loc: Room: [address] [place] [address] Type: ADM IN Attending Dr: Clau Edwards MD Copies to: ~ Date of Service: 05/20/2024 Subjective Subjective Narrative: HPI: Mr Arciniega is a 78-year-old male who was admitted to [facility] the earlymorning of May 19 with a chief complaint of fever, cough, shortness of breath and was found to be an acute congestive heart failure, there is also concerns for pneumonia and found to have a UTI as well. He was subsequently admitted to the hospital, saturating well on 6 L nasal cannula started on IV diuresis with Bumex infusion, broad-spectrum antibiotics for concerns for pneumonia and a UTI and a COPD exacerbation. He was subsequently transitioned from nasal cannula to BiPAP. The patient was previously at our hospital for CHF exacerbation, he did see cardiology on consult and it appears after couple days of diuretic therapy he improved drastically as far as his oxygenation goes. He was unable to be started on NALINI or ARB or SLG T therapy secondary to his kidney function. A echocardiogram Performed on May 11 showed ejection fraction of 20 to 25%, moderate to severe concentric left ventricular hypertrophy, severe global hypokinesis of the left ventricle with RVSP estimated to be 30-40. It was recommended to have an outpatient ischemic evaluation as it was unclear if he would tolerate a left heart cath secondary to his kidney function. He was discharged with Imdur 30, hydralazine 50 BID, Bumex 1.5 mg daily, insulin therapy and continued on the remainder of his home medications which did includecarvedilol 6.25 mg twice daily. His Aldactone was decreased to 12.5 mg daily. His outpatient follow-up with cardiology was scheduled for June 15, he has not had the outpatient ischemic evaluation yet. Upon arrival to our hospital tonight, the patient appears comfortable on BiPAP though he is breathing in the high 20s and low 30s. His settings were [id number] with FiO2 of 65%. His tidal volumes were roughly 750 mL. This does correlate with an ABG performed at [facility] which shows pH of 7.52, pCO2 of 27, and pO2 of 45. Given his low O2, I do question if this was actuallya VBG. When asked how he was feeling before he came to the hospital, he did sayhe was coughing a lot and did have some productive sputum, he describes the sputum as red and frothy. Chest x-ray was performed 05/19 and showed extensive bilateral opacities with differential being multifocal pneumonia versus pulmonary edema which was worse than the initial x-ray performed the day prior. Interval History: The patient was seen this morning. He was on High flow O2. He still reports congestion and SOB. He has been responding to Bumex well. He denied any chest pain. Exam Physical Exam Vital Signs: Temp Pulse Resp BP Pulse Ox O2 Del Method O2 Flow Rate 98.6 F 100 18 124/72 96 High Flow 40 05/20/24 07:12 05/20/24 09:00 05/20/24 09:00 05/20/24 09:00 05/20/24 09:00 05/20/24 09:00 05/20/24 09:00 FiO2 60 05/20/24 09:00 Narrative: Alert and awake Warm to touch Lung diminished with crackles at the bases Heart sounds irregular without murmurs Abdomen, soft with no tenderness extremities, pedal edema Objective Lab Results 05/20/24 03:06 05/20/24 03:06 ABG Interpretation ABG results: 05/20/24 03:57 ABG pH 7.49 H ABG pCO2 31.0 L ABG pO2 100.8 H ABG HCO3 23.1 ABG Total CO2 24.0 ABG O2 Saturation 97.8 ABG O2 Content 5.2 L ABG Base Excess 0.0 Meds Allergies and Active Meds Allergies fosinopril Allergy (Verified 05/09/24 19:59) SOB metoprolol Allergy (Verified 05/09/24 19:59) Hypotension strawberry Allergy (Verified 05/09/24 19:59) Rash Active Meds: Active Medications Generic Name Dose Route Start Last Admin Trade Name Freq PRN Reason Stop Dose Admin Acetaminophen 650 mg 05/20/24 03:03 Acetaminophen 325 Mg Tablet PO 05/20/25 03:02 Q6HR PRN Pain Scale 1 - 3 or fever Albuterol 2.5 mg 05/20/24 05:49 Albuterol Neb 2.5 Mg/3 Ml Vial.Neb INHALATION 05/20/25 05:48 Q4H PRN shortness of breath or wheezing Allopurinol 300 mg 05/20/24 09:00 05/20/24 08:29 Allopurinol 300 Mg Tablet PO 05/20/25 08:59 300 mg DAILY BRYAN Administration Apixaban 5 mg 05/20/24 09:00 05/20/24 08:29 Apixaban 5 Mg Tablet PO 05/20/25 08:59 5 mg BID BRYAN Administration Aspirin 81 mg 05/21/24 09:00 Aspirin 81 Mg Tablet. PO 05/21/25 08:59 Delacruz@0900 BRYAN Carvedilol 6.25 mg 05/20/24 08:00 05/20/24 08:29 Carvedilol 6.25 Mg Tablet PO 05/20/25 07:59 6.25 mg BID.WITH.MEALS BRYAN Administration Dextrose 0 gm 05/20/24 03:54 Dextrose 50% In Water 25 Gm/50 Ml Syringe IV-PUSH 05/20/25 03:53 PRN PRN Hypoglycemia Finasteride 5 mg 05/20/24 09:00 05/20/24 08:47 Finasteride 5 Mg Tablet PO 05/20/25 08:59 5 mg DAILY BRYAN Administration Glucose 0 gm 05/20/24 03:54 Dextrose 40% Gel 15 Gm Tube PO 05/20/25 03:53 PRN PRN Hypoglycemia Bumetanide 24 mg/ IV 96 mls @ 4 mls/hr 05/20/24 04:30 05/20/24 04:44 Miscellaneous Supplies IV 05/20/25 04:29 1 mg/hr .Q24H BRYAN 4 mls/hr Administration 1 MG/HR Magnesium Sulfate 2 gm in 50 mls @ 25 mls/hr 05/20/24 09:29 Magnesium Sulf 2gm-*Swfi* IV 05/20/24 11:28 ONCE ONE Insulin Aspart 0 units 05/20/24 08:00 05/20/24 08:23 Insulin Aspart 300 Units/3 Ml SUBCUT 05/20/25 07:59 3 units TID.WM.HS BRYAN Administration Protocol Insulin Glargine 25 units 05/20/24 08:00 05/20/24 08:24 Insulin Glargine 300 Units/3 Ml Insuln.Pen SUBCUT 05/20/25 07:59 25 units DAILY.WITH.BKFAST BRYAN Administration Isosorbide Mononitrate 30 mg 05/20/24 09:00 05/20/24 08:29 Isosorbide Mononitrate 24hr Er 30 Mg Tab.Er.24h PO 05/20/25 08:59 30 mg QAM BRYAN Administration Melatonin 5 mg 05/20/24 03:03 Melatonin 5 Mg Tablet PO 05/20/25 03:02 QHS PRN Insomnia Ondansetron HCl 4 mg 05/20/24 03:03 Ondansetron 4 Mg/2 Ml Vial IV-PUSH 05/20/25 03:02 Q8H PRN Nausea And Vomiting Pantoprazole Sodium 40 mg 05/20/24 09:00 05/20/24 08:30 Pantoprazole 40 Mg Tablet. PO 05/20/25 08:59 40 mg DAILY BRYAN Administration Sodium Chloride 10 ml 05/20/24 04:57 Sodium Chloride 0.9 % 10 Ml Syringe IV-PUSH 05/20/25 04:56 PRN PRN Flush Spironolactone 12.5 mg 05/20/24 09:00 05/20/24 08:29 Spironolactone 12.5 Mg Tablet PO 05/20/25 08:59 12.5 mg DAILY BRYAN Administration Terazosin HCl 10 mg 05/20/24 22:00 Terazosin 5 Mg Capsule PO 05/20/25 21:59 HS BRYAN Valsartan 40 mg 05/20/24 09:45 Valsartan 40 Mg Tablet PO 05/20/25 09:44 BID BRYAN A&P - Hospitalist Assessment/Plan (1) Acute HFrEF (heart failure with reduced ejection fraction): (2) Chronic kidney disease: (3) Chronic indwelling Gomez catheter: Plan: ? Maintain ? Was placed for urinary retention and prior admission, he has an appointment with urologist for cystoscopy. (4) Diabetes: (5) Hypomagnesemia: (6) Acute on chronic hypoxic respiratory failure: (7) Afib: Plan Acute on chronic HFrEF EF is 20-25% on recent echo, hasn't been optimized on GDMT due to CKD. He is currently on IV bumex on and is responding well. He is on Imdur, spironolactone and coreg Continue IV diuresis, started valsartan 40 mg BID for afterload reduction monitor Is and Os Consult cardiolgy Acute respiratory failure with hypoxia Continue high flow O2 and wean as tolated after diuresisi Chronic A.fib V paced rhythm on monitor Continue coreg and ELiquis Anemia Hgb levels has worsened since last week. He denied any bleeding but he is on Eliquis Check FOBT and iron profile Monitor daily CBC CKD stage III [facility] is 1.6 around baseline with good response to diuresis. Continue to monitor Documented By: Clau Edwards MD 05/20/2442 Signed By: <Electronically signed by Clau Edwadrs MD> 05/20/24 0933 [facility] Work Phone: 1(191) 964-257603-01-[address] [place] [address] Hospitalist Progress Note Signed Patient: Leighton Arciniega MR#: [id number] : 1945 Acct:[id number] Age/Sex: 78 / M Adm Date: Loc: Room: 3P9235-6 Type: ADM IN Attending Dr: Clau Edwards MD Copies to: ~ Date of Service: 05/20/2024 Subjective Subjective Narrative: HPI: Mr Arciniega is a 78-year-old male who was admitted to [facility] the earlyning with a chief complaint of fever, cough, shortness of breath and was found to be an acute congestive heart failure, there is also concerns for pneumonia and found to have a UTI as well. He was subsequently admitted to the hospital, saturating well on 6 L nasal cannula started on IV diuresis with Bumex infusion, broad-spectrum antibiotics for concerns for pneumonia and a UTI and a COPD exacerbation. He was subsequently transitioned from nasal cannula to BiPAP. The patient was previously at our hospital for CHF exacerbation, he did see cardiology on consult and it appears after couple days of diuretic therapy he improved drastically as far as his oxygenation goes. He was unable to be started on NALINI or ARB or SLG T therapy secondary to his kidney function.A echocardiogram Performed on May 11 showed ejection fraction of 20 to 25%, moderate to severeconcentric left ventricular hypertrophy, severe global hypokinesis of the left ventricle with RVSP estimated to be 30-40. It was recommended to have an outpatient ischemic evaluation as it was unclear if he would tolerate a left heart cath secondary to his kidney function. He was discharged with Imdur 30, hydralazine 50 BID, Bumex 1.5 mg daily, insulin therapy and continued on the remainder of his home medications which did includecarvedilol 6.25 mg twice daily. His Aldactone was decreased to 12.5 mg daily. His outpatient follow-up with cardiology was scheduled for June 15, he has not had the outpatient ischemic evaluation yet. Upon arrival to our hospital tonight, the patient appears comfortable on BiPAP though he is breathing in the high 20s and low 30s. His settings were [id number]/8 with FiO2 of 65%. His tidal volumes were roughly 750 mL. This does correlate with an ABG performed at [facility] which shows pH of 7.52, pCO2 of 27, and pO2 of 45. Given his low O2, I do question if this was actuallya VBG. When asked how he was feeling before he came to the hospital, he did sayhe was coughing a lot and did havesome productive sputum, he describes the sputum as red and frothy. Chest x-ray was performed 05/19 and showed extensive bilateral opacities with differential being multifocal pneumonia versus pulmonary edema which was worse than the initial x-ray performed the day prior. Interval History: The patient was seen this morning. He was on High flow O2. He still reports congestion and SOB. He has been responding to Bumex well. He denied any chest pain. Exam Physical Exam Vital Signs: Temp Pulse Resp BP Pulse Ox O2 Del Method O2 Flow Rate 98.6 F 100 18 124/72 96 High Flow 40 05/20/24 07:12 05/20/24 09:00 05/20/24 09:00 05/20/24 09:00 05/20/24 09:00 05/20/24 09:00 05/20/24 09:00 FiO2 60 05/20/24 09:00 Narrative: Alert and awake Warm to touch Lung diminished with crackles at the bases Heart sounds irregular without murmurs Abdomen, soft with no tenderness extremities, pedal edema Objective Lab Results 05/20/24 03:06 05/20/24 03:06 ABG Interpretation ABG results: 05/20/24 03:57 ABG pH 7.49 H ABG pCO2 31.0 L ABG pO2 100.8 H ABG HCO3 23.1 ABG Total CO2 24.0 ABG O2 Saturation 97.8 ABG O2 Content 5.2 L ABG Base Excess 0.0 Meds Allergies and Active Meds Allergies fosinopril Allergy (Verified 05/09/24 19:59) SOB metoprolol Allergy (Verified 05/09/24 19:59) Hypotension strawberry Allergy (Verified 05/09/24 19:59) Rash Active Meds: Active Medications Generic Name Dose Route Start Last Admin Trade Name Freq PRN Reason Stop Dose Admin Acetaminophen 650 mg 05/20/24 03:03 Acetaminophen 325 Mg Tablet PO 05/20/25 03:02 Q6HR PRN Pain Scale 1 - 3 or fever Albuterol 2.5 mg 05/20/24 05:49 Albuterol Neb 2.5 Mg/3 Ml Vial.Neb INHALATION 05/20/25 05:48 Q4H PRN shortness of breath or wheezing Allopurinol 300 mg 05/20/24 09:00 05/20/24 08:29 Allopurinol 300 Mg Tablet PO 05/20/25 08:59 300 mg DAILY BRYAN Administration Apixaban 5 mg 05/20/24 09:00 05/20/24 08:29 Apixaban 5 Mg Tablet PO 05/20/25 08:59 5 mg BID BRYAN Administration Aspirin 81 mg 05/21/24 09:00 Aspirin 81 Mg Tablet. PO 05/21/25 08:59 Delacruz@0900 BRYAN Carvedilol 6.25 mg 05/20/24 08:00 05/20/24 08:29 Carvedilol 6.25 Mg Tablet PO 05/20/25 07:59 6.25 mg BID.WITH.MEALS BRYAN Administration Dextrose 0 gm 05/20/24 03:54 Dextrose 50% In Water 25 Gm/50 Ml Syringe IV-PUSH 05/20/25 03:53 PRN PRN Hypoglycemia Finasteride 5 mg 05/20/24 09:00 05/20/24 08:47 Finasteride 5 Mg Tablet PO 05/20/25 08:59 5 mg DAILY BRYAN Administration Glucose 0 gm 05/20/24 03:54 Dextrose 40% Gel 15 Gm Tube PO 05/20/25 03:53 PRN PRN Hypoglycemia Bumetanide 24 mg/ IV 96 mls @ 4 mls/hr 05/20/24 04:30 05/20/24 04:44 Miscellaneous Supplies IV 05/20/25 04:29 1 mg/hr .Q24H BRYAN 4 mls/hr Administration 1 MG/HR Magnesium Sulfate 2 gm in 50 mls @ 25 mls/hr 05/20/24 09:29 Magnesium Sulf 2gm-*Swfi* IV 05/20/24 11:28 ONCE ONE Insulin Aspart 0 units 05/20/24 08:00 05/20/24 08:23 Insulin Aspart 300 Units/3 Ml SUBCUT 05/20/25 07:59 3 units TID.WM.HS BRYAN Administration Protocol Insulin Glargine 25 units 05/20/24 08:00 05/20/24 08:24 Insulin Glargine 300 Units/3 Ml Insuln.Pen SUBCUT 05/20/25 07:59 25 units DAILY.WITH.BKFAST BRYAN Administration Isosorbide Mononitrate 30 mg 05/20/24 09:00 05/20/24 08:29 Isosorbide Mononitrate 24hr Er 30 Mg Tab.Er.24h PO 05/20/25 08:59 30 mg QAM BRYAN Administration Melatonin 5 mg 05/20/24 03:03 Melatonin 5 Mg Tablet PO 05/20/25 03:02 QHS PRN Insomnia Ondansetron HCl 4 mg 05/20/24 03:03 Ondansetron 4 Mg/2 Ml Vial IV-PUSH 05/20/25 03:02 Q8H PRN Nausea And Vomiting Pantoprazole Sodium 40 mg 05/20/24 09:00 05/20/24 08:30 Pantoprazole 40 Mg Tablet.Dr PO 05/20/25 08:59 40 mg DAILY BRYAN Administration Sodium Chloride 10 ml 05/20/24 04:57 Sodium Chloride 0.9 % 10 Ml Syringe IV-PUSH 05/20/25 04:56 PRN PRN Flush Spironolactone 12.5 mg 05/20/24 09:00 05/20/24 08:29 Spironolactone 12.5 Mg Tablet PO 05/20/25 08:59 12.5 mg DAILY BRYAN Administration Terazosin HCl 10 mg 05/20/24 22:00 Terazosin 5 Mg Capsule PO 05/20/25 21:59 HS BRYAN Valsartan 40 mg 05/20/24 09:45 Valsartan 40 Mg Tablet PO 05/20/25 09:44 BID BRYAN A&P - Hospitalist Assessment/Plan (1) Acute HFrEF (heart failure with reduced ejection fraction): (2) Chronic kidney disease: (3) Chronic indwelling Gomez catheter: Plan: ? Maintain ? Was placed for urinary retention and prior admission, he has an appointment with urologist for cystoscopy. (4) Diabetes: (5) Hypomagnesemia: (6) Acute on chronic hypoxic respiratory failure: (7) Afib: Plan Acute on chronic HFrEF EF is 20-25% on recent echo, hasn't been optimized on GDMT due to CKD. He is currently on IV bumex on and is responding well. He is on Imdur, spironolactone and coreg Continue IV diuresis, started valsartan 40 mg BID for afterload reduction monitor Is and Os Consult cardiolgy Acute respiratory failure with hypoxia Continue high flow O2 and wean as tolated after diuresisi Chronic A.fib V paced rhythm on monitor Continue coreg and ELiquis Anemia Hgb levels has worsened since last week. He denied any bleeding but he is on Eliquis Check FOBT and iron profile Monitor daily CBC CKD stage III [facility] is 1.6 around baseline with good response to diuresis. Continue to monitor Documented By: Clau Edwards MD 05/20/2442 Signed By: 05/20/24 0951 [facility]03-01-2025 History and physical note Author Don Patel [facility] Note Date/Time May 20, 2024 3:07 am [facility] [address] [place] [address] Hospitalist H&P Signed Patient: Leighton Arciniega MR#: [id number] : 1945 Acct:[id number] Age/Sex: 78 / M Adm Date: 5 Loc: Room: [address] [place] [address] Type: ADM IN Attending Dr: Don Patel DO Copies to: MD Don Love, DO~ HPI DATE OF EXAMINATION: 05/20/24 CHIEF COMPLAINT: shortness of breath HISTORY OF PRESENT ILLNESS: Mr Arciniega is a 78-year-old male who was admitted to [facility] the early of May 19 with a chief complaint of fever, cough, shortness of breath and was found to be an acute congestive heart failure, there is also concerns for pneumonia and found to have a UTI as well. He was subsequently admitted to the hospital, saturating well on 6 L nasal cannula started on IV diuresis with Bumex infusion, broad-spectrum antibiotics for concerns for pneumonia and a UTI and a COPD exacerbation. He was subsequently transitioned from nasal cannula to BiPAP. The patient was previously at our hospital for CHF exacerbation, he did see cardiology on consult and it appears after couple days of diuretic therapy he improved drastically as far as his oxygenation goes. He was unable to be started on NALINI or ARB or SLG T therapy secondary to his kidney function. A echocardiogram Performed on May 11 showed ejection fraction of 20 to 25%, moderate to severe concentric left ventricular hypertrophy, severe global hypokinesis of the left ventricle with RVSP estimated to be 30-40. It was recommended to have an outpatient ischemic evaluation as it was unclear if he would tolerate a left heart cath secondary to his kidney function. He was discharged with Imdur 30, hydralazine 50 BID, Bumex 1.5 mg daily, insulin therapy and continued on the remainder of his home medications which did includecarvedilol 6.25 mg twice daily. His Aldactone was decreased to 12.5 mg daily. His outpatient follow-up with cardiology was scheduled for June 15, he has not had the outpatient ischemic evaluation yet. Upon arrival to our hospital tonight, the patient appears comfortable on BiPAP though he is breathing in the high 20s and low 30s. His settings were [id number]/8 with FiO2 of 65%. His tidal volumes were roughly 750 mL. This does correlate with an ABG performed at [facility] which shows pH of 7.52, pCO2 of 27, and pO2 of 45. Given his low O2, I do question if this was actuallya VBG. When asked how he was feeling before he came to the hospital, he did sayhe was coughing a lot and did have some productive sputum, he describes the sputum as red and frothy. Chest x-ray was performed 05/19 and showed extensive bilateral opacities with differential being multifocal pneumonia versus pulmonary edema which was worse than the initial x-ray performed the day prior. Review of Systems Review of Systems All other systems reviewed & are negative unless noted below or in [facility] Medical History (Updated 05/20/24 @ 04:06 by Don Patel DO) COPD (chronic obstructive pulmonary disease) VIRGILIO on [...] mg PO HS 05/09/24 [History Confirmed 05/09/24] hydralazine 50 mg tablet 50 mg PO BID 30 days #60 tabs 05/12/24 [Rx] isosorbide mononitrate 30 mg tablet,extended release 24 hr 30 mg PO QAM 30 days #30 tabs 05/12/24 [Rx] bumetanide 0.5 mg tablet 1.5 mg (3 x 0.5 mg) PO DAILY@0800 #0 tabs 05/13/24 [Rx] insulin aspart U-100 100 unit/mL (3 mL) subcutaneous pen See Protocol subcut TID.WM.HS #0 mL 05/13/24 [Rx] insulin glargine 100 unit/mL (3 mL) subcutaneous pen (Lantus Solostar U-100 Insulin) 8 unit (0.08 mL) subcut QHS #0 mL 05/13/24 [Rx] insulin glargine 100 unit/mL (3 mL) subcutaneous pen (Lantus Solostar U-100 Insulin) 18 unit (0.18 mL) subcut DAILY #0 mL 05/13/24 [Rx] potassium chloride 10 mEq tablet,extended release 10 meq PO DAILY #30 tabs 05/13/24 [Rx] spironolactone 25 mg tablet 12.5 mg (1/2 x 25 mg) PO DAILY #30 tabs 05/13/24 [Rx Confirmed 05/09/24] Exam Physical Exam Vital Signs: Temp Pulse Resp BP Pulse Ox O2 Del Method FiO2 100.5 F H 92 32 H 123/64 97 BiPAP 65 05/20/24 01:15 05/20/24 03:00 05/20/24 03:00 05/20/24 03:00 05/20/24 03:00 05/20/24 03:00 05/20/24 03:00 Narrative: General: Awake alert, no acute distress, on BiPAP HEENT: head atraumatic, normocephalic, moist mucous membranes Neck: supple no masses, no lymphadenopathy CVS: regular rate and rhythm, no murmurs or gallops Respiratory: Surprisingly his lungs do not sound very bad here at all, I did nothear any evidence of expiratory wheezes or inspiratory crackles. GI: soft, nondistended, nontender, positive bowel sounds with no organomegaly Extremity: moves all extremities, no restrictions of movements, no calf tenderness, no edema Neuro: AOx3, CN II-VII intact. Moves all extremities in all planes of motion. Skin: dry, intact no rashes or lesions Assessment & Plan Assessment/Plan (1) Acute HFrEF (heart failure with reduced ejection fraction): Plan: ? His initial BiPAP settings were 14/6 at 65% FiO2 and he was having tidal volumes over 700 mL, adjusted settings to 16/10 to decrease tidal volumes, he appeared to tolerate this well ? Stat ABG to assess his pH and carbon dioxide levels ? Increase Bumex infusion. He was on 0.5 mg/h at [facility], will have him on 1 mg/h here. ? His weight on admission here is 94 kg, his discharge weight was 88 kg. Daily weights. ? Strict I's and O's ? Will resume his home medications once they are confirmed in the computer ? Cardiology consulted ? Pulmonology consulted for BiPAP management (2) Chronic kidney disease: Plan: ? Creatinine here is 1.63, this is on the lower end of his baseline (3) Chronic indwelling Gomez catheter: Plan: ? Maintain ? Was placed for urinary retention and prior admission, he has an appointment with urologist for cystoscopy. (4) Diabetes: Plan: ? Glucose checks ACHS ? Glargine 25 units daily ? Aspart #3 sliding scale (5) Hypomagnesemia: Plan: ? Will supplement with 2 g MagSO4 (6) Acute on chronic hypoxic respiratory failure: Plan: See above (7) Afib: Plan: Continue home dose of Eliquis, he has a history of A-fib/sick sinus syndrome Plan ? DVT prophylaxis addressed ? Diabetic diet with a fluid restriction ? Full code IP vs OBS Justification Based on differential dx, clinical care plan, and risk of adverse events, if untreated, in my clinical judgement this patient requires an acute care setting as: INPATIENT because of an expectation of an over 2 midnight stay. Estimated length of stay (# of days): 3 Documented By: Don Patel DO 05/20/24 8711 Signed By: <Electronically signed by Don Patel DO> 05/20/24 2691 [facility] Work Phone: 1(324) 482-537803-01-2025 [place] [address] Hospitalist H&P Signed Patient: Leighton Arciniega MR#: [id number] : 1945 Acct:[id number] Age/Sex: 78 / M Adm Date: 5 Loc: Room: [address] [place] [address] Type: ADM IN Attending Dr: Don Patel DO Copies to: MD Don Love, DO~ HPI DATE OF EXAMINATION: 05/20/24 CHIEF COMPLAINT: shortness of breath HISTORY OF PRESENT ILLNESS: Mr Arciniega is a 78-year-old male who was admitted to [facility] the early with a chief complaint of fever, cough, shortness of breath and was found to be an acute congestive heart failure, there is also concerns for pneumonia and found to have a UTI as well. He was subsequently admitted to the hospital, saturating well on 6 L nasal cannula started on IV diuresis with Bumex infusion, broad-spectrum antibiotics for concerns for pneumonia and a UTI and a COPD exacerbation. He was subsequently transitioned from nasal cannula to BiPAP. The patient was previously at our hospital for CHF exacerbation, he did see cardiology on consult and it appears after couple days of diuretic therapy he improved drastically as far as his oxygenation goes. He was unable to be started on NALINI or ARB or SLG T therapy secondary to his kidney function.A echocardiogram Performed on May 11 showed ejection fraction of 20 to 25%, moderate to severeconcentric left ventricular hypertrophy, severe global hypokinesis of the left ventricle with RVSP estimated to be 30-40. It was recommended to have an outpatient ischemic evaluation as it was unclear if he would tolerate a left heart cath secondary to his kidney function. He was discharged with Imdur 30, hydralazine 50 BID, Bumex 1.5 mg daily, insulin therapy and continued on the remainder of his home medications which did includecarvedilol 6.25 mg twice daily. His Aldactone was decreased to 12.5 mg daily. His outpatient follow-up with cardiology was scheduled for June 15, he has not had the outpatient ischemic evaluation yet. Upon arrival to our hospital tonight, the patient appears comfortable on BiPAP though he is breathing in the high 20s and low 30s. His settings were [id number]/8 with FiO2 of 65%. His tidal volumes were roughly 750 mL. This does correlate with an ABG performed at [facility] which shows pH of 7.52, pCO2 of 27, and pO2 of 45. Given his low O2, I do question if this was actuallya VBG. When asked how he was feeling before he came to the hospital, he did sayhe was coughing a lot and did havesome productive sputum, he describes the sputum as red and frothy. Chest x-ray was performed 05/19 and showed extensive bilateral opacities with differential being multifocal pneumonia versus pulmonary edema which was worse than the initial x-ray performed the day prior. Review of Systems Review of Systems All other systems reviewed & are negative unless noted below or in [facility]PI [facility] Medical History (Updated 05/20/24 @ 04:06 by Don Patel DO) COPD (chronic obstructive pulmonary disease) VIRGILIO on [...] mg PO HS 05/09/24 [History Confirmed 05/09/24] hydralazine 50 mg tablet 50 mg PO BID 30 days #60 tabs 05/12/24 [Rx] isosorbide mononitrate 30 mg tablet,extended release 24 hr 30 mg PO QAM 30 days #30 tabs 05/12/24 [Rx] bumetanide 0.5 mg tablet 1.5 mg (3 x 0.5 mg) PO DAILY@0800 #0 tabs 05/13/24 [Rx] insulin aspart U-100 100 unit/mL (3 mL) subcutaneous pen See Protocol subcut TID.WM.HS #0 mL 05/13/24 [Rx] insulin glargine 100 unit/mL (3 mL) subcutaneous pen (Lantus Solostar U-100 Insulin) 8 unit (0.08 mL) subcut QHS #0 mL 05/13/24 [Rx] insulin glargine 100 unit/mL (3 mL) subcutaneous pen (Lantus Solostar U-100 Insulin) 18 unit (0.18 mL) subcut DAILY #0 mL 05/13/24 [Rx] potassium chloride 10 mEq tablet,extended release 10 meq PO DAILY #30 tabs 05/13/24 [Rx] spironolactone 25 mg tablet 12.5 mg (1/2 x 25 mg) PO DAILY #30 tabs 05/13/24 [Rx Confirmed 05/09/24] Exam Physical Exam Vital Signs: Temp Pulse Resp BP Pulse Ox O2 Del Method FiO2 100.5 F H 92 32 H 123/64 97 BiPAP 65 05/20/24 01:15 05/20/24 03:00 05/20/24 03:00 05/20/24 03:00 05/20/24 03:00 05/20/24 03:00 05/20/24 03:00 Narrative: General: Awake alert, no acute distress, on BiPAP HEENT: head atraumatic, normocephalic, moist mucous membranes Neck: supple no masses, no lymphadenopathy CVS: regular rate and rhythm, no murmurs or gallops Respiratory: Surprisingly his lungs do not sound very bad here at all, I did nothear any evidence of expiratory wheezes or inspiratory crackles. GI: soft, nondistended, nontender, positive bowel sounds with no organomegaly Extremity: moves all extremities, no restrictions of movements, no calf tenderness, no edema Neuro: AOx3, CN II-VII intact. Moves all extremities in all planes of motion. Skin: dry, intact no rashes or lesions Assessment & Plan Assessment/Plan (1) Acute HFrEF (heart failure with reduced ejection fraction): Plan: ? His initial BiPAP settings were 14/6 at 65% FiO2 and he was having tidal volumes over 700 mL, adjusted settings to 16/10 to decrease tidal volumes, he appeared to tolerate this well ? Stat ABG to assess his pH and carbon dioxide levels ? Increase Bumex infusion. He was on 0.5 mg/h at [facility], will have him on 1 mg/h here. ? His weight on admission here is 94 kg, his discharge weight was 88 kg. Daily weights. ? Strict I's and O's ? Will resume his home medications once they are confirmed in the computer ? Cardiology consulted ? Pulmonology consulted for BiPAP management (2) Chronic kidney disease: Plan: ? Creatinine here is 1.63, this is on the lower end of his baseline (3) Chronic indwelling Gomez catheter: Plan: ? Maintain ? Was placed for urinary retention and prior admission, he has an appointment with urologist for cystoscopy. (4) Diabetes: Plan: ? Glucose checks ACHS ? Glargine 25 units daily ? Aspart #3 sliding scale (5) Hypomagnesemia: Plan: ? Will supplement with 2 g MagSO4 (6) Acute on chronic hypoxic respiratory failure: Plan: See above (7) Afib: Plan: Continue home dose of Eliquis, he has a history of A-fib/sick sinus syndrome Plan ? DVT prophylaxis addressed ? Diabetic diet with a fluid restriction ? Full code IP vs OBS Justification Based on differential dx, clinical care plan, and risk of adverse events, if untreated, in my clinical judgement this patient requires an acute care setting as: INPATIENT because of an expectation ofan over 2 midnight stay. Estimated length of stay (# of days): 3 Documented By: Don Patel DO 05/20/245 Signed By: 05/20/247 [facility]02-27-2025 NotePatient Education Urology Prostatic Urethral Lift Prostatic urethral lift is a surgical procedure to treat symptoms of prostate gland enlargement that occurs with age (benign prostatic hypertrophy, BPH). The urethra passes between the two lobes of the prostate. The urethra is the part of the body that drains urine from the bladder. As the prostate enlarges, it can push on the urethra and cause problems with urinating. This procedure involves placing an implant that holds the prostate away from the urethra. The procedure is done using a thin device called a cystoscope. The device is inserted through the tip of the penis and moved up the urethra to the prostate. This is less invasive than other procedures that require an incision. You may have this procedure if: ??? You have symptoms of BPH. ??? Your prostate is not severely enlarged. ??? Medicines to treat BPH are not working or not tolerated. ??? You want to avoid possible sexual side effects from medicines or other procedures that are usedto treat BPH. Tell a health care provider about: ??? Any allergies you have. ??? All medicines you are taking, including vitamins, herbs, eye drops, creams, and bcgx-bpe-siukvoc medicines. ??? Any problems you or family members have had with anesthetic medicines. ??? Any bleeding problems you have. ??? Any surgeries you have had. ??? Any medical conditions you have. What are the risks? Generally, this is a safe procedure. However, problems may occur, including: ??? Bleeding. ??? Infection. ??? Leaking of urine (incontinence). ??? Allergic reactions to medicines. ??? Return of BPH symptoms after 2 years, requiring more treatment. What happens before the procedure? When to stop eating and drinking Follow instructions from your health care provider about what you may eat and drink before your procedure. These may include: ??? 8 hours before your procedure ? Stop eating most foods. Do not eat meat, fried foods, or fatty foods. ? Eat only light foods, such as toast or crackers. ? All liquids are okay except energy drinks and alcohol. ??? 6 hours before your procedure ? Stop eating. ? Drink only clear liquids, such as water, clear fruit juice, black coffee, plain tea, and sports drinks. ? Do not drink energy drinks or alcohol. ??? 2 hours before your procedure ? Stop drinking all liquids. ? You may be allowed to take medicines with small sips of water. If you do not follow your health care provider's instructions, your procedure may be delayed or canceled. Medicines Ask your health care provider about: ??? Changing or stopping your regular medicines. This is especially important if you are taking diabetes medicines or blood thinners. ??? Taking medicines such as aspirin and ibuprofen. These medicines can thin your blood. Do not take these medicines unless your health care provider tells you to take them. ??? Taking kkdy-vzy-tbqgtjj medicines, vitamins, herbs, and supplements. Surgery safety Ask your health care provider what steps will be taken to help prevent infection. These steps may include: ??? Removing hair at the surgery site. ??? Washing skin with a germ-killing soap. ??? Taking antibiotic medicine. General instructions ??? Do not use any products that contain nicotine or tobacco for at least 4 weeks before the procedure. These products include cigarettes, chewing tobacco, and vaping devices, such as e-cigarettes. If you need help quitting, ask your health care provider. ??? If you will be going home right after the procedure, plan to have a responsible adult: ? Take you home from the hospital or clinic. You will not be allowed to drive. ? Care for you for the time you are told. What happens during the procedure? An IV may be inserted into one of your veins. ??? You will be given one or more of the following: ? A medicine to help you relax (sedative). ? A medicine that is injected into your urethra to numb the area (local anesthetic). ? A medicine to make you fall asleep (general anesthetic). ??? A cystoscope will be inserted into your penis and moved through your urethra to your prostate. ??? A device will be inserted through the cystoscope and used to press the lobes of your prostate away from your urethra. ??? Implants will be inserted through the device to hold the lobes of your prostate in the widened position. ??? The device and cystoscope will be removed. The procedure may vary among health care providers and hospitals. What happens after the procedure? Your blood pressure, heart rate, breathing rate, and blood oxygen level be monitored until you leave the hospital or clinic. ??? If you were given a sedative during the procedure, it can affect you for several hours. Do not drive or operate machinery until your health care provider says that it is safe. Summary ??? Prostatic urethral lift is a surgical procedure to relieve symptoms (more content not included)...[facility]02-22-2025 Progress note Author John Nettles [facility] Note Date/Time May 13, 2024 12:49pm [facility] [address] [place] [address] Cardiology Progress Note Signed Patient: Leighton Arciniega MR#: [id number] : 1945 Acct:[id number] Age/Sex: 78 / M Adm Date: 5 Loc: Room: [address] [place] [address] Type: ADM IN Attending Dr: Alexa Corona [...] few weeks has been admitted twice to [facility] and was treated for pneumonia. The patient [...] discharge patient over the weekend to [facility] for [facility]. His kidney function is unchanged [...] % (Auto) 68.7 Lymph % (Auto) 17.8 [place] % (Auto) 7.9 Eos % (Auto) 5.3 Baso % (Auto) 0.3 Nucleat RBC Rel Count 0.0 Neut # (Auto) 4.3 Lymph # (Auto) 1.1 [place] # (Auto) 0.5 Eos # (Auto) 0.3 [...] MPV Neut % (Auto) Lymph % (Auto) [place] % (Auto) Eos % (Auto) Baso % (Auto) Nucleat RBC Rel Count Neut # (Auto) Lymph # (Auto) [place] # (Auto) Eos # (Auto) Baso # [...] once stable Lexiscan MPI. Last [facility] was normal but was at [facility] in 2012. Plan for outpatient Lexiscan MPI by primary tandem mill sticker. 3. Continue anticoagulation for now 4. Will see as needed. Please call with any questions. He will f/u with [facility] cardiology. Documented By: John Nettles MD 04/23 05/16 1234 Signed By: <Electronically signed by John Nettles MD> 05/13/24 1249 [facility] Work Phone: 1(959) 166-898102-22-[address] [address] Cardiology Progress Note Signed Patient: Leighton Arciniega MR#: [id number] : 1945 Acct:[id number] Age/Sex: 78 / M Adm Date: 5 Loc: Room: [address] [place] [address] Type: ADM IN Attending Dr: Alexa Corona [...] few weeks has been admitted twice to [facility] and was treated for pneumonia. The patient [...] to discharge patient overthe weekend to [facility]. His kidney function is unchanged [...] % (Auto) 68.7 Lymph % (Auto) 17.8 [place] % (Auto) 7.9 Eos % (Auto) 5.3 Baso % (Auto) 0.3 Nucleat RBC Rel Count 0.0 Neut # (Auto) 4.3 Lymph # (Auto) 1.1 [place] # (Auto) 0.5 Eos # (Auto) 0.3 [...] MPV Neut % (Auto) Lymph % (Auto) [place] % (Auto) Eos % (Auto) Baso % (Auto) Nucleat RBC Rel Count Neut # (Auto) Lymph # (Auto) [place] # (Auto) Eos # (Auto) Baso # [...] once stable Lexiscan MPI. Last [facility] was normal butwas at [facility] in 2012. Plan for outpatient Lexiscan MPI by primary tandem mill sticker. 3. Continue anticoagulation for now 4. Will see as needed. Please call with any questions. He will f/u with [facility] cardiology. Documented By: John Nettles MD 04/23 05/16 1234 Signed By: 05/13/24 1249 [facility]02-21-2025 Progress note Author Rupert Rey [facility] Note Date/Time May 12, 2024 5:40pm [facility] [address] [place] [address] Cardiology Progress Note Signed Patient: Leighton Arciniega MR#: [id number] : 1945 Acct:[id number] Age/Sex: 78 / M Adm Date: 5 Loc: Room: [address] [place] [address] Type: ADM IN Attending Dr: Alexa Corona [...] few weeks has been admitted twice to [facility] and was treated for pneumonia. The patient [...] discharge patient over the weekend to [facility] for [facility]. His kidney function is unchanged [...] % (Auto) 71.7 Lymph % (Auto) 16.4 [place] % (Auto) 6.8 Eos % (Auto) 4.5 Baso % (Auto) 0.6 Nucleat RBC Rel Count 0.1 Neut # (Auto) 4.3 Lymph # (Auto) 1.0 [place] # (Auto) 0.4 Eos # (Auto) 0.3 [...] MPV Neut % (Auto) Lymph % (Auto) [place] % (Auto) Eos % (Auto) Baso % (Auto) Nucleat RBC Rel Count Neut # (Auto) Lymph # (Auto) [place] # (Auto) Eos # (Auto) Baso # (Auto) PHA Creatinine Clear Sodium Potassium Chloride Carbon Dioxide Anion Gap BUN Creatinine Est GFR (CKD-EPI) Glucose POC Glucose 63 91 214 POC Glucose Comment Calcium 05/12/24 16:26 Corrected WBC Uncorrected WBC Count RBC Hgb Hct MCV MCH MCHC RDW Plt Count MPV Neut % (Auto) Lymph % (Auto) [place] % (Auto) Eos % (Auto) Baso % (Auto) Nucleat RBC Rel Count Neut # (Auto) Lymph # (Auto) [place] # (Auto) Eos # (Auto) Baso # [...] as tolerated Documented By: Rupert Rey MD, [facility] 5 [id number] Signed By: <Electronically signed by MD HARSHIL Rey> 05/12/24 4580 [facility] Work Phone: 1(263) 189-154602-21-2025 [place] [address] Cardiology Progress Note Signed Patient: Leighton Arciniega MR#: [id number] : 1945 Acct:[id number] Age/Sex: 78 / M Adm Date: 5 Loc: Room: [address] [place] [address] Type: ADM IN Attending Dr: Alexa Corona [...] few weeks has been admitted twice to [facility] and was treated for pneumonia. The patient [...] to discharge patient overthe weekend to [facility] for [facility]. His kidney function is unchanged [...] % (Auto) 71.7 Lymph % (Auto) 16.4 [place] % (Auto) 6.8 Eos % (Auto) 4.5 Baso % (Auto) 0.6 Nucleat RBC Rel Count 0.1 Neut # (Auto) 4.3 Lymph # (Auto) 1.0 [place] # (Auto) 0.4 Eos # (Auto) 0.3 [...] MPV Neut % (Auto) Lymph % (Auto) [place] % (Auto) Eos % (Auto) Baso % (Auto) Nucleat RBC Rel Count Neut # (Auto) Lymph # (Auto) [place] # (Auto) Eos # (Auto) Baso # (Auto) PHA Creatinine Clear Sodium Potassium Chloride Carbon Dioxide Anion Gap BUN Creatinine Est GFR (CKD-EPI) Glucose POC Glucose 63 91 214 POC Glucose Comment Calcium 05/12/24 16:26 Corrected WBC Uncorrected WBC Count RBC Hgb Hct MCV MCH MCHC RDW Plt Count MPV Neut % (Auto) Lymph % (Auto) [place] % (Auto) Eos % (Auto) Baso % (Auto) Nucleat RBC Rel Count Neut # (Auto) Lymph # (Auto) [place] # (Auto) Eos # (Auto) Baso # [...] as tolerated Documented By: Rupert Rey MD, [facility] 5 1733 Signed By: 05/12/24 1740 [facility]02-21-2025 Progress note Author Alexa Corona [facility] Note Date/Time May 12, 2024 2:50pm [facility] [address] [place] [address] Hospitalist Progress Note Signed Patient: Leighton Arciniega MR#: [id number] : 1945 Acct:[id number] Age/Sex: 78 / M Adm Date: 5 Loc: Room: [address] [place] [address] Type: ADM IN Attending Dr: Alexa Corona [...] Laboratory work up and Imaging studies reviewed panel monitor - reviewed Exam Physical Exam Vital [...] hypoxic respiratory failure requiring BiPAP administration at [facility], improving with diuretic therapy, currently downgraded to 6 L nasal cannula, now to 4, I do suspect due to acute systolic congestive heart failure with ejection fraction 20% as per reports from [facility], echocardiogram pending For now I [...] urinary retention during last admission at the [facility], he does have appointment with urologist, will keep it in Documented By: Alexa Corona MD 05/12/24 0403 Signed By: <Electronically signed by Alexa Corona MD> 05/12/24 1451 [facility] Work Phone: 1(538) 678-785002-21-2025 [place] [address] Hospitalist Progress Note Signed Patient: Leighton Arciniega MR#: [id number] : 1945 Acct:[id number] Age/Sex: 78 / M Adm Date: 5 Loc: Room: [address] [place] [address] Type: ADM IN Attending Dr: Alexa Corona [...] Laboratory work up and Imaging studies reviewed panel monitor - reviewed Exam Physical Exam Vital [...] hypoxic respiratory failure requiring BiPAP administration at [facility], improving with diuretic therapy, currently downgraded to 6 L nasal cannula, now to 4, I do suspect due to acute systolic congestive heart failure with ejection fraction 20% as per reports from [facility], e chocardiogram pending For now [...] urinary retention during last admission at the [facility], he does haveappointment with urologist, will keep it in Documented By: Alexa Corona MD 05/12/24 1449 Signed By: 05/12/24 1450 [facility]02-20-2025 Progress note Author Alexa Corona [facility] Note Date/Time May 11, 2024 12:27pm [facility] [address] [place] [address] Hospitalist Progress Note Signed Patient: Leighton Arciniega MR#: [id number] : 1945 Acct:[id number] Age/Sex: 78 / M Adm Date: 5 Loc: Room: [address] [place] [address] Type: ADM IN Attending Dr: Alexa Corona [...] Laboratory work up and Imaging studies reviewed panel monitor - reviewed Exam Physical Exam Vital [...] hypoxic respiratory failure requiring BiPAP administration at [facility], improving with diuretic therapy, currently downgraded to 6 L nasal cannula, now to 4, I do suspect due to acute systolic congestive heart failure with ejection fraction 20% as per reports from [facility], echocardiogram pending For now I [...] Eliquis Documented By: Alexa Corona MD 05/11/24 9294 Signed By: <Electronically signed by Alexa Corona MD> 05/11/24 8500 [facility] Work Phone: 1(142) 590-678502-20-2025 Progress note Author Rueprt Rey [facility] Note Date/Time May 11, 2024 12:22pm [facility] [address] [place] [address] Cardiology Progress Note Signed Patient: Leighton Arciniega MR#: [id number] : 1945 Acct:[id number] Age/Sex: 78 / M Adm Date: 5 Loc: Room: [address] [place] [address] Type: ADM IN Attending Dr: Alexa Corona [...] few weeks has been admitted twice to [facility] and was treated for pneumonia. The patient [...] MPV Neut % (Auto) Lymph % (Auto) [place] % (Auto) Eos % (Auto) Baso % (Auto) Nucleat RBC Rel Count Neut # (Auto) Lymph # (Auto) [place] # (Auto) Eos # (Auto) Baso # [...] % (Auto) 78.1 Lymph % (Auto) 11.7 [place] % (Auto) 6.8 Eos % (Auto) 3.3 Baso % (Auto) 0.1 Nucleat RBC Rel Count 0.1 Neut # (Auto) 5.2 Lymph # (Auto) 0.8 L [place] # (Auto) 0.5 Eos # (Auto) 0.2 [...] MPV Neut % (Auto) Lymph % (Auto) [place] % (Auto) Eos % (Auto) Baso % (Auto) Nucleat RBC Rel Count Neut # (Auto) Lymph # (Auto) [place] # (Auto) Eos # (Auto) Baso # [...] failure therapy Documented By: Rupert Rey MD, [facility] 5 1217 Signed By: <Electronically signed by MD HARSHIL Rey> 05/11/24 1222 [facility] Work Phone: 1(141) 150-423202-20-2025 [place] [address] Hospitalist Progress Note Signed Patient: Leighton Arciniega MR#: [id number] : 1945 Acct:[id number] Age/Sex: 78 / M Adm Date: 5 Loc: Room: [address] [place] [address] Type: ADM IN Attending Dr: Alexa Corona [...] Laboratory work up and Imaging studies reviewed panel monitor - reviewed Exam Physical Exam Vital [...] hypoxic respiratory failure requiring BiPAP administration at [facility], improving with diuretic therapy, currently downgraded to 6 L nasal cannula, now to 4, I do suspect due to acute systolic congestive heart failure with ejection fraction 20% as per reports from [facility], e chocardiogram pending For now [...] MD 05/11/24 1224 Signed By: 05/11/24 1227 [facility]02-20-2025 [place] [address] Cardiology Progress Note Signed Patient: Leighton Arciniega MR#: [id number] : 1945 Acct:[id number] Age/Sex: 78 / M Adm Date: 5 Loc: 4 Room: [address] [place] [address] Type: ADM IN Attending Dr: Alexa Corona [...] few weeks has been admitted twice to [facility] and was treated for pneumonia. The patient [...] MPV Neut % (Auto) Lymph % (Auto) [place] % (Auto) Eos % (Auto) Baso % (Auto) Nucleat RBC Rel Count Neut # (Auto) Lymph # (Auto) [place] # (Auto) Eos # (Auto) Baso # [...] % (Auto) 78.1 Lymph % (Auto) 11.7 [place] % (Auto) 6.8 Eos % (Auto) 3.3 Baso % (Auto) 0.1 Nucleat RBC Rel Count 0.1 Neut # (Auto) 5.2 Lymph # (Auto) 0.8 L [place] # (Auto) 0.5 Eos # (Auto) 0.2 [...] MPV Neut % (Auto) Lymph % (Auto) [place] % (Auto) Eos % (Auto) Baso % (Auto) Nucleat RBC Rel Count Neut # (Auto) Lymph # (Auto) [place] # (Auto) Eos # (Auto) Baso # [...] failure therapy Documented By: Rupert Rey MD, [facility] 5 1217 Signed By: 05/11/24 [facility]2 [facility]02-19-2025 Consult note Author Osvaldo Dickinson [facility] Note Date/Time May 10, 2024 6:30pm [facility] [address] [place] [address] Cardiology Consult Note Signed Patient: Leighton Arciniega MR#: [id number] : 1945 Acct:[id number] Age/Sex: 78 / M Adm Date: 5 Loc: Room: [address] [place] [address] Type: ADM IN Attending Dr: Alexa Corona [...] few weeks has been admitted twice to [facility] and was treated for pneumonia. The patient [...] denies chest pain. He described mild arthritis [facility] Medical History COPD (chronic obstructive pulmonary [...] Lymph # (Auto) 0.6 L (1.00-4.8) x10E3/uL [place] # (Auto) 0.3 (0.0-0.8) x10E3/uL Eos # [...] heart failure. Chart suggestto recent echocardiogram at [facility] initially showed ejection fraction around 55% while [...] By: Osvaldo Dickinson MD 05/10/241816 Signed By: <Electronically signed by MD Osvaldo Dickinson> 05/10/24 1830 [facility] Work Phone: 1(677) 894-703902-19-2025 [place] [address] Cardiology Consult Note Signed Patient: Leighton Arciniega MR#: [id number] : 1945 Acct:[id number] Age/Sex: 78 / M Adm Date: 5 Loc: Room: [address] [place] [address] Type: ADM IN Attending Dr: Alexa Corona [...] few weeks has been admitted twice to [facility] and was treated for pneumonia. The patient [...] denies chest pain. He described mild arthritis [facility] Medical History COPD (chronic obstructive pulmonary [...] Lymph # (Auto) 0.6 L (1.00-4.8) x10E3/uL [place] # (Auto) 0.3 (0.0-0.8) x10E3/uL Eos # [...] heart failure. Chart suggestto recent echocardiogram at [facility] initially showed ejection fraction around 55% while [...] Dickinson MD 05/10/241816 Signed By: 05/10/24 1830 [facility]02-19-2025 Progress note Author Alexa Corona [facility] Note Date/Time May 10, 2024 12:51pm [facility] [address] [place] [address] Hospitalist Progress Note Signed Patient: Leighton Arciniega MR#: [id number] : 1945 Acct:[id number] Age/Sex: 78 / M Adm Date: 5 Loc: 4 Room: [address] [place] [address] Type: ADM IN Attending Dr: Alexa Corona [...] Laboratory work up and Imaging studies reviewed panel monitor - reviewed Exam Physical Exam Vital [...] hypoxic respiratory failure requiring BiPAP administration at [facility], improving with diuretic therapy, currently downgraded to 6 L nasal cannula, now to 4, I do suspect due to acute systolic congestive heart failure with ejection fraction 20% as per reports from [facility] For now I will continue [...] Alexa Corona MD 05/10/24 1248 Signed By: <Electronically signed by Alexa Corona MD> 05/10/24 1251 [facility] Work Phone: 1(485) 785-396502-19-2025 [place] [id number] Hospitalist Progress Note Signed Patient: Leighton Arciniega MR#: [id number] : 1945 Acct:[id number] Age/Sex: 78 / M Adm Date: 5 Loc: Room: [address] [place] [address] Type: ADM IN Attending Dr: Alexa Corona [...] Laboratory work up and Imaging studies reviewed panel monitor - reviewed Exam Physical Exam Vital [...] hypoxic respiratory failure requiring BiPAP administration at [facility], improving with diuretic therapy, currently downgraded to 6 L nasal cannula, now to 4, I do suspect due to acute systolic congestive heart failure with ejection fraction 20% as per reports from [facility] For now I will continue [...] MD 05/10/24 1248 Signed By: 05/10/24 1251 [facility]02-18-2025 History and physical note Author Alexa Corona [facility] Note Date/Time May 09, 2024 9:08pm [facility] [address] [place] [address] Hospitalist H&P Signed Patient: Leighton Arciniega MR#: [id number] : 1945 Acct:[id number] Age/Sex: 78 / M Adm Date: 5 Loc: Room: [address] [place] [address] Type: ADM IN Attending Dr: Devan Drake MD Copies to: MD Devan Love MD Ruta Semaskiene, MD~ HPI DATE OF EXAMINATION: 05/09/24 HISTORY OF PRESENT ILLNESS: 78 Years old male transferred from [facility] with shortness of breath. Patient was hospitalized [...] are negative from what is mentioned to [facility] General -patient is awake alert oriented ?3, [...] Previous records in the computer system reviewed [facility] Medical History (Updated 05/09/24 @ 21:08 [...] with ejection fraction 20% as perreports from [facility] For now I will continue with Bumex drip, strict input and output, recheck kidneyfunction in a.m., today labs reviewed from [facility] Consult cardiology due to systolic heart [...] <Electronically signed by Alexa Corona MD> 05/09/242107 [facility] Work Phone: 1(168) 633-625102-18-2025 Evaluation note* Diagnosis Onset Date Resolution Status Admit Date CHF (congestive heart failure) acute May 09, 7:47pm Chronic kidney disease acute Fe bruary 2024 7:47pm Pacemaker acute May 09, 2024 7:47pm Sick sinus syndrome acute Febru 2024 7:47pm [facility] Work Phone: 1(296) 867-393802-18-2025 Evaluation note* Diagnosis Onset Date Resolution Status Admit Date CHF (congestive heart failure) resol ellen May 09, 2024 7:47pm Chronic kidney disease resolved Fe bruary 2024 7:47pm Pacemaker resolved May 09, 2024 7:47pm Sick sinus syndrome resolved Febru 2024 7:47pm Acute HFrEF (heart failure with reduced ejection fraction) acute May 20, 2024 2:38am Acute on chronic hypoxic respiratory failure acute May 20 2:38am Afib acute May 20 2:38am Anemia acute May 20 2:38am Chronic indwelling Gomez catheter acute May 20, 2024 2:38am COPD (chronic obstructive pulmonary disease) acute May 20 2:38am Diabetes acute May 20 2:38am Hemoptysis acute May 20 2:38am Hypomagnesemia acute May 20, 2024 2:38am Interstitial lung disease acute May 20, 2024 2:38am Iron deficiency anemia acute [facility] 2024 2:38am Obstructive sleep apnea acute [facility] 2024 2:38am Pulmonary infiltrates acute [facility] 2024 2:38am Chronic kidney disease resolved [facility] 2024 2:38am Pacemaker resolved May 20 2:38am Sick sinus syndrome resolved May 20, 2024 2:38am [facility] Work Phone: 1(847) 676-752802-18-2025 Evaluation note* Diagnosis Onset Date Resolution Status Admit Date CHF (congestive heart failure) resol ellen May 09, 2024 7:47pm Chronic kidney disease resolved Fe bruary 2024 7:47pm Pacemaker resolved May 09, 2024 7:47pm Sick sinus syndrome resolved Febru rhea 2024 7:47pm Afib acute May 20 2:38am Chronic indwelling Gomez catheter acute May 20, 2024 2:38am COPD (chronic obstructive pulmonary disease) acute May 20 2:38am Diabetes acute May 20 2:38am Hypomagnesemia acute May 20, 2024 2:38am Interstitial lung disease acute May 20, 2024 2:38am Iron deficiency anemia acute [facility] 2024 2:38am Obstructive sleep apnea acute [facility] 2024 2:38am Acute HFrEF (heart failure with reduced ejection fraction) resolved May 20, 2024 2:38am Chronic kidney disease resolved [facility] 2024 2:38am Pacemaker resolved May 20 2:38am Sick sinus syndrome resolved May 20, 2024 2:38am Acute on chronic hypoxic respiratory failure deleted May 20, 2:38am Anemia deleted May 20 2:38am Hemoptysis deleted May 20 2:38am Pulmonary infiltrates deleted May 2:38am [facility] Work Phone: 1(182) 189-878002-18-2025 [place] [address] Hospitalist H&P Signed Patient: Leighton Arciniega MR#: [id number] : 1945 Acct:[id number] Age/Sex: 78 / M Adm Date: 5 Loc: 4 Room: [address] [place] [address] Type: ADM IN Attending Dr: Devan Drake MD Copies to: MD Devan Love MD Ruta Semaskiene, MD~ HPI DATE OF EXAMINATION: 05/09/24 HISTORY OF PRESENT ILLNESS: 78 Years old male transferred from [facility] with shortness of breath. Patient was hospitalized [...] are negative from what is mentioned to [facility] General -patient is awake alert oriented ?3, [...] Previous records in the computer system reviewed [facility] Medical History (Updated 05/09/24 @ 21:08 [...] with ejection fraction 20% as perreports from [facility] For now I will continue with Bumex drip, strict input and output, recheck kidneyfunction in a.m., today labs reviewed from [facility] Consult cardiology due to systolic heart [...] Alexa Corona MD 05/09/242051 Signed By: 05/09/242107 [facility]02-05-2025 NotePatient Education Urology Indwelling Urinary Catheter [...] provider. Document Revised: 11/05/2021 Document Reviewed: 11/05/2021 [employer] Patient Education ? 2023 [employer].[facility] 04-12-2024 NotePatient Education Urology Benign Prostatic [...] Follow these instructions at home: ??? Take ouxa-eli-ldzsmge and prescription medicines only as told by [...] symptoms do not get (more content not included)...[facility]12-12-2024 NotePatient Education Urology Acute Urinary Retention, [...] these instructions at home: Medicines ??? Take vara-ipq-itgysro and prescription medicines only as told by [...] provider. Document Revised: 11/27/2020 Document Reviewed: 11/27/2020 [employer] Patient Education ? 2023 Happy Inspector.[facility] 03-01-2024 History of Present illness Narrative* [...] to retrieve his recent lab work from [facility] 5. I will see him back [...] exam, discussion and plan. documented in this [facility] Work Phone: 1(891) 972-267612-11-2024 Instructions* Patient Instructions* Betzaida Denney LPN - [...] Provided instructions on exercise. documented in this [facility] Work Phone: 1(590) 663-389311-25-2024 NotePatient Education Rezum Post-Procedure Instructions General Recommendations [...] to the c (more content not included)... [facility]11-11-2024 NotePatient Education Urology Acute Urinary Retention, [...] these instructions at home: Medicines ??? Take wucd-czx-prtmwet and prescription medicines only as told by [...] provider. Document Revised: 11/27/2020 Document Reviewed: 11/27/2020 [employer] Patient Education ? 2023 Happy Inspector. Benign Prostatic Hyperplasia Benign prostatic hyperplasia (BPH) is an enlarged prostate gland that is caused by the normal agingproc (more content not included)...[facility]10-28-2024 History of Present illness Narrative* Blanca [...] given intertriginous involvement, topical steroids contraindicated for half-way use in this area and he has [...] Next Visit: 1 year documented in this encounterRaymond [place] [id number] NoteProgress Note-Physician Patient: LEIGHTON ARCINIEGA Age: 78 years Sex: Male : 1945 Associated Diagnoses: None Author: Mica Car MD Health Status Allergies: Allergic Reactions (Selected) Severity [...] day(s), # 6 tab(s), Refills(s) 0, Pharmacy: [facility] #[id number], 177, cm, 12/27/23 11:02:00 EDT, Height/Length Dosing, 104, kg, 12/27/23 11:02:00 EDT, Weight Dosing [place] 325 mg-5 mg oral tablet: 1 tab(s), Oral, q6hr for pain, 4 tab(s), Refill(s) 0, Take 1 tablet an hour before procedure, post procedure prn, [facility] #[id number], 177, cm, 12/27/23 11:02:00 EDT, Height/Length Dosing, 104, kg, 12/27/23 11:02:00 EDT, Weight Dosing sildenafil 100 mg Tab: 100 mg = 1 tab(s), Oral, As Directed, PRN for erectile dysfunction, Take onetab 1 hour prior to sexual activity., # 30 tab(s), Refills(s) 3, [facility]acy: [facility] #[id number], 177.8, cm, 06/16/23 10:18:00 EDT, Height/Length Dosing, 104.8, kg, 06/16/23 10:18:... terazosin 10 mg Cap: 10 mg = 1 cap(s), Oral, Once a day (at bedtime), # 90 cap(s), Refills(s) 3, Pharmacy: [facility], 177, cm, 12/27/23 11:02:00 EDT, Height/Length Dosing, 104, kg, 12/27/23 11:02:00 EDT, Weight Dosing traMADOL 50 mg Tab: 50 mg = 1 tab(s), Oral, q6hr, Take as needed for pain., # 6 tab(s), Refills(s) 0, Pharmacy: [facility] #[id number], 177.8, cm, 11/12/23 15:35:00 EDT, Height/Length Dosing, [...] Plan: Diagnosis: Prostate hyperplasia with urinary obstruction (BAG91-QB N40.1, Discharge, Medical), Feeling of incomplete bladder emptying (JWJ43-BH R39.14, Working, Medical), Anticoagulated (YUX28-ZE Z79.01, Discharge, Medical). 78 yo male here [...] Valium prior to procedure. Will need driver medic. The procedural risks, benefits, details, and treatment alternatives have been discussed with the patient. These include bleeding, infection, continued problems urinating, increased frequency with urgency during the healing process, painful urination, need for indwelling cathete (more content not included)... [facility]:Result Comment: Electronically Signed By: Josep SANDHU, Mica Benson.deann\Date and Time Signed: 12/27/23 12:43EDT 12-27-2023 NotePatient [...] if you have a fever over 100 degrees.[facility] 12-14-2023 History of Present illness Narrative* [...] (hypertension) (CMS/HCC) Hx of psoriasis Kidney disease DC (myocardial infarction) (CMS/HCC) VIRGILIO (obstructive sleep apnea) [...] was counselled on the risk of stroke, DC, and sudden with VIRGILIO, along with the [...] instructions Return to clinic: documented in this encounterCapital [facility] [id number] NotePatient Education Urology Benign Prostatic Hyperplasia Benign [...] Follow these instructions at home: ? Take bwdz-qvm-ctvhlws and prescription medicines only as told by [...] You develop side effec (more content not included)...[facility]07-25-2024 NoteED Patient Education Note Orthopedics Acute [...] under your knee. General instructions ? Take lzkn-agn-usqxzjw and prescription medicines only as told by [...] provider. Document Revised: 08/21/2020 Document Reviewed: 08/21/2020 [employer] Patient Education ? 2022 Happy Inspector.[facility] 08-25-2023 History of Present illness Narrative* [...] Scribe Attestation By signing my name below, Alberta Heredia LPN , Scribe attest that this documentation [...] exam, discussion and plan. [facility] Work Phone: 1(732) 661-272006-05-2024 Instructions* Patient Instructions* Jo Ann Ferrer CMA [...] time of your visit. documented in [facility]Pro[facility] Work Phone: 1(739) 650-456511-22-2023 History of Present illness Narrative* Varghese Caal [...] on recent pacemaker checks. documented in [facility]Pro[facility] Work Phone: 1(348) 784-456711-22-2023 Instructions* Patient Instructions* Alize James LPN - [...] follow up per routine documented in this [facility]Pro[facility] Work Phone: 1(891) 368-644002-23-2023 NotePROCEDURE: XR KNEE LT 4V or > [...] Electronically authenticated by: JOE DU Date: 2022-05-14 18:40[facility] [place] [address] Discharge Summary Signed Patient: Leighton Arciniega MR#: [id number] : 1945 Acct:[id number] Age/Sex: 78 / M Adm Date: 5 Loc: Room: [address] [place] [address]: Richard Zamora DO Copies to: MD Richard Love DO Mourhaf A Traboulssi, MD~ Providers Date of Discharge: 05/27/24 Discharging Provider: Richard Zamora Primary Care Provider: Lori Medina Consults: 05/20/24 03:03 Consult to Cardiology Routine Comment: Consulting Provider: [facility] Reason For Exam: CHF on Bipap Has Provider Been Notified: Yes Date of Notification: 05/20/24 Time of Notification: 06:00 05/20/24 03:08 Consult to Pulmonology Routine Comment: Consulting Provider: [facility] Reason For Exam: CHF on bipap Has Provider Been Notified: Yes Date of Notification: 05/20/24 Time of Notification: 10:17 05/21/24 08:25 Consult to Occupational Therapy Routine Comment: Physician Instructions: Consult to OT for:: Evaluation and Treat Consult to Physical Therapy Routine Comment: Physician Instructions: Consult to PT for:: Evaluation and Treat Discharge Diagnosis (1) Acute HFrEF (heart failure with reduced ejection fraction): (2) Interstitial lung disease: (3) Acute on chronic hypoxic respiratory failure: (4) Chronic indwelling Gomez catheter: (5) Diabetes: (6) Hypomagnesemia: (7) Chronic kidney disease: (8) Obstructive sleep apnea: (9) Iron deficiency anemia: Final Diagnosis Final Discharge Diagnosis: Recurrent acute on chronic heart failure with reduced ejection fraction. New diagnosis of acute interstitial pneumonia versus longer-term interstitial lung disease. Echocardiogram showing left ventricular ejection fraction of 20 to 25% on 05/11/2024. Nuclear myocardial perfusion scanning showing left ventricular ejection fractionof 35% on 05/23/24. Obstructive sleep apnea, very compliant on his home sleep apnea machine. Iron deficiency anemia. Iron extremely low at 10. TIBC low at 120. Iron saturation extremely low at8.3. Ferritin slightly high at 707. Summary Hospital Course Hospital course: Is a 78-year-old man who has recently had a few visits to different hospitals, primarily outside [facility], with shortness of breath. For this particular hospital stay he presented to [facility] on May 19 with cough, shortness of breath, and a clinical picture of acutesystolic congestive heart failure. There were also concerns for pneumonia and UTI as well. We arrived at this hospital he was on 6 L of oxygen by nasal cannula. He had been on broad-spectrumantibiotics for concern of pneumonia and UTI and corticosteroids for COPD exacerbation. However hisoxygenation had worsened andhe had to be transition from 6 L oxygen nasal cannula to BiPAP. So on arrival here to [facility] he was put in the ICU. He had pulmonology and cardiology consultation. In the past he has not been started on an NALINI or an ARB or SGLT2 inhibitor due to concerns about his kidney function. An echocardiogram performed on May 11 showed leftventricular ejection fraction of 2025% with concentric left ventricular hypertrophy that wassevere and severe global hypokinesis of the left ventricle. When he was admitted to the ICU on BiPAP he was started on a Bumex drip at 1 mg/h. He was continuedon his level of diuresis for about 3 days. Thereafter he was continued on Bumex drip at 0.5 mg an hour for about 2 or 3 more days. The pulmonology building energy consultant became concerned about secondary problem in his lungs. Vasculitis panel including MARKELL and ANCA were ordered. CT scan of the chest was done. The CT scan of the chest was read as Scattered areas of groundglass and septal thickening with small bilateral pleural effusions. Fi ndings may relate to CHF/pulmonary edema given the cardiomegaly. An atypical infectious process cannot BE excluded. Ultimately the ANCA and MARKELL were negative. Pulmonology felt that the patient likely has interstitial pulmonary fibrosis. The patient did complete a course of corticosteroids during the hospital stay and will finish by taking a 4-week taper of 40 mg down to 10 mg of prednisone over the next 4 weeks and then follow-up in the pulmonology office in about 6 weeks for repeat x-ray and pulmonary function testing. The patient presented to this hospital with a weight of 93.8 kg, it is possible it was even higher at the outside hospital before he got here. On the intensified diuresis his weight did improve to 83.2 kg. At that point cardiology stopped his IV diuretics and put him on 60 mg of Lasix per day at which point his weight went to 85 kg, 85.5 kg, and 85.6 kg. While he was here he was started on SGLT2 therapy with Farxiga 10 mg daily. This was done in the setting of the Bumex drip and his creatinine was actually improving. He was also started on ARB. And his creatinine did not show any worsening. Cardiology declined to start him on Entresto, saying that they prefer to have that done by the patient's regular tandem mill sticker, Dr. Dickinson, in the office. At the end of the hospital stay the patient was excepted to a shelter facility, but after getting ready to take the patient suddenly they do not have bed availability so I did stay in the hospital for a few more days until the second skilled nurse facility could be found. Condition Condition at Discharge: Stable Status at Discharge Functional status at discharge: uses cane/walker Overall status at discharge: patient is progressing back to baseline Time Spent with Patient Time spent providing/coordinating discharge services (# min): 49 Discharge Plan Discharge Plan Patient Disposition: [facility] Facility Activity: No Activity Restriction Diet: Diabetic and Low-Sodium Comment: 1600 ml fluid restriction daily Additional Instructions: SNF to manage: -PT/OT to eval and treat -Monitor VS per protocol -Fall precautions -Perform cardiovascular and respiratory assessments -Monitor intake and output -Daily weight -1600 ml fluid restriction daily -Dietitian recommendations: *Magic cup, 1 container, BID with meals -Continue oxygen at 2L NC -- pt wears this chronically -Continue use of home CPAP at HS -Monitor FSBS ACHS -Change dressing every 3 days: *Mepilex border foam to Coccyx for added protection. -Maintain and perform routine care to chronic gomez catheter -Turn and reposition every 2 hours -Obtain BMP and CBC as ordered -Care to be managed by SNF providers. Weigh patient every day to monitor for return of edema from CHF. Use a standing scale. His best weight in the hospital was 85.0 kg. Over a couple weeks this weight could get as good as 83.0 kg. If his weight goes up by more than 1 kg then increase the Lasix to 60 mg po BID,and continue this until the weight comes back to its baseline. If the weight continues to go up, then increase Lasix to 80 mg po BID, and continue this until the weight comes back to its baseline. Check BMP Q Wednesday and while at SNF. Check CBC Q Wednesday while at SNF. Prescriptions: New magnesium oxide 400 mg (241.3 mg magnesium) Tablet 400 mg PO DAILY 30 Days Qty: 30 12RF furosemide 20 mg Tablet 60 mg PO DAILY.8A 30 Days Qty: 90 12RF spironolactone 50 mg Tablet 50 mg PO DAILY 30 Days Qty: 30 12RF valsartan 40 mg Tablet 40 mg PO BID 30 Days Qty: 60 12RF dapagliflozin propanediol 10 mg Tablet 10 mg PO DAILY Qty: 0 0RF pantoprazole 40 mg Tablet,Delayed Release (Dr/Ec) 40 mg PO DAILY Qty: 0 0RF insulin aspart U-100 100 unit/mL (3 mL) Insulin Pen See Protocol subcut TID.WM.HS Qty: 0 0RF Protocol: Corrective Scale #5 (TDI 101-125 UNITS) Condition: Corrective Scale #5 (TDI 101-125 UNITS) Condition: Dose/Route: Instruction: Condition: Fingerstick Blood Glucose Dose/Route: Insulin Units Condition: 150-199 mg/dl Dose/Route: 5 unit Condition: 200-249 mg/dl Dose/Route: 9 unit Condition: 250-299 mg/dl Dose/Route: 14 unit Condition: 300-349 mg/dl Dose/Route: 18 unit Condition: 350-399 mg/dl Dose/Route: 22 unit Condition: greater than or = 400 mg/dl Dose/Route: 24 unit Instruction: Call Provider Protocol Text: *If the corrective scale dose has been administered within the past 4 hours, do not use corrective scale again unless approved by prescriber* melatonin 5 mg Tablet 5 mg PO QHS PRN (Reason: Insomnia) Qty: 0 0RF Tradjenta 5 mg Tablet 5 mg PO DAILY.WITH.BKFAST Qty: 0 0RF prednisone 10 mg tablet See Taper PO DAILY Qty: 70 0RF Taper: Prednisone Taper 40 mg Daily for 7 Days and 0 Hour 30 mg Daily for 7 Days and 0 Hour 20 mg Daily for 7 Days and 0 Hour 10 mg Daily for 7 Days and 0 Hour Rx Instructions: Take in the morning with food. insulin glargine [Lantus Solostar U-100 Insulin] 100 unit/mL (3 mL) Insulin Pen 25 unit subcut BID Qty: 0 0RF Metamucil Fiber Singles 3.4 gram Powder In Packet 1 packet PO DAILY Qty: 0 0RF Continued acetaminophen 500 mg capsule 1,000 mg PO Q6HR PRN (Reason: fever or pain) allopurinol 300 mg tablet 300 mg PO DAILY Eliquis 5 mg tablet 5 mg PO Q12HR aspirin 81 mg capsule 81 mg PO .weekly Rx Instructions: Wednesday calcium citrate-vitamin D3 315 mg-5 mcg (200 unit) tablet 1 tab PO DAILY carvedilol [Coreg] 6.25 mg tablet 6.25 mg PO BID Rx Instructions: must administer with a meal/food mecobalamin (vitamin B12) 1,000 mcg tablet,chewable 1,000 mcg PO DAILY multivitamin [Daily Multi-Vitamin] Tablet 1 tab PO DAILY Ozempic 1 mg/dose (4 mg/3 mL) pen injector 1 mg subcut QWEEK simvastatin 20 mg tablet 20 mg PO DAILY terazosin 10 mg capsule 10 mg PO HS finasteride 5 mg tablet 5 mg PO DAILY albuterol sulfate 2.5 mg /3 mL (0.083 %) solution for nebulization 2.5 mg inhalation Q4HR PRN (Reason: shortness of breath or wheezing) potassium chloride 10 mEq tablet extended release 10 meq PO DAILY Qty: 30 0RF Discontinued omeprazole 20 mg capsule,delayed release(DR/EC) 20 mg PO DAILY isosorbide mononitrate 30 mg Tablet Extended Release 24 Hr 30 mg PO QAM 30 Days Qty: 30 12RF hydralazine 50 mg Tablet 50 mg PO BID 30 Days Qty: 60 12RF bumetanide 0.5 mg Tablet 1.5 mg PO DAILY@0800 Qty: 0 0RF insulin aspart U-100 100 unit/mL (3 mL) Insulin Pen See Protocol subcut TID.WM.HS Qty: 0 0RF Protocol: Corrective Scale #1 (TDI Condition: Corrective Scale #1 (TDI <=25) Condition: Dose/Route: Instruction: Condition: Fingerstick Blood Glucose Dose/Route: Insulin Units Condition: 150-199 mg/dl Dose/Route: 1 unit Condition: 200-249 mg/dl Dose/Route: 2 unit Condition: 250-299 mg/dl Dose/Route: 3 unit Condition: 300-349 mg/dl Dose/Route: 4 unit Condition: 350-399 mg/dl Dose/Route: 5 unit Condition: greater than or = 400 mg/dl Dose/Route: 6 unit Instruction: CallProvider Protocol Text: *If the corrective scale dose has been administered within the past 4 hours, do not use corrective scale again unless approved by prescriber* Patient Comments: If blood sugar 150-199, give 1 Units If blood sugar 200-249, give 2 Units If blood sugar 250-299, give 3 Units If blood sugar 300-349, give 4 Units If blood sugar 350-399, give 5 Units If blood sugar > 400 call MD insulin glargine [Lantus Solostar U-100 Insulin] 100 unit/mL (3 mL) Insulin Pen 18 unit subcut DAILY Qty: 0 0RF insulin glargine [Lantus Solostar U-100 Insulin] 100 unit/mL (3 mL) Insulin Pen 8 unit subcut QHS Qty: 0 0RF spironolactone 25 mg tablet 12.5 mg PO DAILY Qty: 30 0RF Other Ambulatory Orders: Basic Metabolic Panel (2XW) Timeframe: 20240529 Location: Determined by Patient Ordered By: Richard Zamora Basic Metabolic Panel (2XW) Timeframe: 20240530 Location: Determined by Patient Ordered By: Richard Zamora Basic Metabolic Panel (2XW) Timeframe: 20240531 Location: Determined by Patient Ordered By: Richard Zamora Basic Metabolic Panel (2XW) Timeframe: 20240601 Location: Determined by Patient Ordered By: Richard Zamora Complete Blood Count Auto Diff (Q7D) Timeframe: 20240529 Location: Determined by Patient Ordered By: Richard Zamora Complete Blood Count Auto Diff (Q7D) Timeframe: 20240605 Location: Determined by Patient Ordered By: Richard Zamora Complete Blood Count Auto Diff (Q7D) Timeframe: 20240612 Location: Determined by Patient Ordered By: Richard Zamora Complete Blood Count Auto Diff (Q7D) Timeframe: 20240619 Location: Determined by Patient Ordered By: Richard Zamora Complete Pulmonary Function (Routine) Timeframe: 20240526 Location: Determined by Patient Ordered By: Richard Zamora XR chest 2V* (Routine) Timeframe: 20240706 Location: Determined by Patient Ordered By: Richard Zamora Follow Up: [facility] Scheduling [Outside] (Please call to pre-register for your outpatient PFT and CXR. ) Osvaldo Dickinson MD [Active Staff] - 06/15/24 2:30 pm Darshan Willams MD [Active Staff] - 07/06/24 1:30 pm (Post hospital follow-up appointment. The patient should have repeat two-view chest x-ray as well as pulmonary function tests prior to hisoffice follow-up visit.) Lori Medina MD [Primary Care Provider] - (Please arrange a follow-up appointment once dischargedfrom SNF. ) Continuity of Care Document Health Concerns: A [facility] screening has identified you as FRAIL or AT RISK FOR FRAILTY. This puts you at a higher risk for infection, illness, falls,and other injuries. Here are four ways to help you reduce your risk of frailty: 1. IDENTIFY EARLY SIGNS OF FRAILTY ? Discuss contributing factors and concerns with your doctor 2. BE ACTIVE ? Walking and light strengthening exercises will help reduce weakness 3. EAT WELL ? Aim for three healthy meals a day that are high in protein 4. THINKPOSITIVE ? Keep your mind active by being sociable and continuing to learn References: Stay Strong:Four Ways to Beat the Frailty Riskhttps://[email or web address].org/health/kqksafyo-vdk-ourcdjmxci/sta p-wjonqd-atju-hfco-ss-jtgg-mqe-fskgxdl-xtta Exam Physical Exam Vital Signs: Temp Pulse Resp BP Pulse Ox O2 Del Method O2 Flow Rate 97.7 F 70 18 123/64 94 L Nasal Cannula 2 05/27/24 08:00 05/27/24 12:00 05/27/24 12:00 05/27/24 12:00 05/27/24 12:05/27/24 12:00 05/27/24 12:00 FiO2 30 05/22/24 23:41 Narrative: General: Sitting up in a chair and getting ready to get in the wheelchair. Pulm: Scattered crackles in the bases bilaterally that are consistent with interstitial lung disease/pulmonary fibrosis. Lower extremities: Minimal edema in the ankles bilaterally. Home equipment: He has some sleep apnea machine with him. Cardiac: Regular rate and rhythm. to auscultation. Diagnostic Studies Completed and Pending Studies Labs on day of discharge: 05/27/24 06:35: Magnesium 1.6 L 05/27/24 06:32: POC Glucose 82 05/26/24 21:06: POC Glucose 164 05/26/24 15:39: POC Glucose 289 05/25/24 22:23: POC Glucose 206 05/24/24 16:24: POC Glucose 183 05/24/24 11:20: POC Glucose 269 05/23/24 16:13: POC Glucose 95 05/23/24 11:36: POC Glucose 406 H*, POC Glucose Comment 05/23/24 11:34: POC Glucose 475 H*, POC Glucose Comment Documented By: Richard Zamora DO 1302 Signed By: 05/27/24 1621 [facility] Richard Zamora [facility] Note Date/Time May 27, 2024 3:21 pm [facility] [address] [place] [address] Discharge Summary Signed Patient: Leighton Arciniega MR#: [id number] : 1945 Acct:[id number] Age/Sex: 78 / M Adm Date: 5 Loc: Room: [address] [place] [address]: Richard Zamora DO Copies to: MD Richard Love DO Mourhaf A Traboulssi, MD~ Providers Date of Discharge: 05/27/24 Discharging Provider: Richard Zamora Primary Care Provider: Lori Medina Consults: 05/20/24 03:03 Consult to Cardiology Routine Comment: Consulting Provider: [facility] Reason For Exam: CHF on Bipap Has Provider Been Notified: Yes Date of Notification: 05/20/24 Time of Notification: 06:00 05/20/24 03:08 Consult to Pulmonology Routine Comment: Consulting Provider: [facility] - [facility] Reason For Exam: CHF on bipap Has Provider Been Notified: Yes Date of Notification: 05/20/24 Time of Notification: 10:17 05/21/24 08:25 Consult to Occupational Therapy Routine Comment: Physician Instructions: Consult to OT for:: Evaluation and Treat Consult to Physical Therapy Routine Comment: Physician Instructions: Consult to PT for:: Evaluation and Treat Discharge Diagnosis (1) Acute HFrEF (heart failure with reduced ejection fraction): (2) Interstitial lung disease: (3) Acute on chronic hypoxic respiratory failure: (4) Chronic indwelling Gomez catheter: (5) Diabetes: (6) Hypomagnesemia: (7) Chronic kidney disease: (8) Obstructive sleep apnea: (9) Iron deficiency anemia: Final Diagnosis Final Discharge Diagnosis: Recurrent acute on chronic heart failure with reduced ejection fraction. New diagnosis of acute interstitial pneumonia versus longer-term interstitial lung disease. Echocardiogram showing left ventricular ejection fraction of 20 to 25% on 05/11/2024. Nuclear myocardial perfusion scanning showing left ventricular ejection fractionof 35% on 05/23/24. Obstructive sleep apnea, very compliant on his home sleep apnea machine. Iron deficiency anemia. Iron extremely low at 10. TIBC low at 120. Iron saturation extremely low at 8.3. Ferritin slightly high at 707. Summary Hospital Course Hospital course: Is a 78-year-old man who has recently had a few visits to different hospitals, primarily outside of [facility], with shortness of breath. For this particular hospital stay he presented to [facility] on May 19 with cough, shortness of breath, and a clinical picture of acute systolic congestive heart failure. There were also concerns for pneumonia and UTI as well. We arrived at this hospital he was on 6 L of oxygen by nasal cannula. He had been on broad-spectrum antibiotics for concern of pneumonia and UTI and corticosteroids for COPD exacerbation. However his oxygenation had worsened andhe had to be transition from 6 L oxygen nasal cannula to BiPAP. So on arrival here to [facility] he was put in the ICU. He had pulmonology and cardiology consultation. In the past he has not been started on an NALINI or an ARB or SGLT2 inhibitor due to concerns about his kidney function. An echocardiogram performed on May 11 showed left ventricular ejection fraction of 2024% with concentric left ventricular hypertrophy that wassevere and severe global hypokinesis of the left ventricle. When he was admitted to the ICU on BiPAP he was started on a Bumex drip at 1 mg/h. He was continued on his level of diuresis for about 3 days. Thereafter he was continued on Bumex drip at 0.5 mg an hour for about 2 or 3 more days. The pulmonology building energy consultant became concerned about secondary problem in his lungs. Vasculitis panel including MARKELL and ANCA were ordered. CT scan of the chest was done. The CT scan of the chest was read as Scattered areas of groundglass and septal thickening with small bilateral pleural effusions. Findings may relate to CHF/pulmonary edema given the cardiomegaly. An atypical infectious process cannot BE excluded. Ultimately the ANCA and MARKELL were negative. Pulmonology felt that the patient likely has interstitial pulmonary fibrosis. The patient did complete a course of corticosteroids during the hospital stay and will finish by taking a 4-week taper of 40 mg down to 10 mg of prednisone over the next 4 weeks and then follow-up in the pulmonology office in about 6 weeks for repeat x-ray and pulmonary function testing. The patient presented to this hospital with a weight of 93.8 kg, it is possible it was even higher at the outside hospital before he got here. On the intensified diuresis his weight did improve to 83.2 kg. At that point cardiology stopped his IV diuretics and put him on 60 mg of Lasix per day at which point his weight went to 85 kg, 85.5 kg, and 85.6 kg. While he was here he was started on SGLT2 therapy with Farxiga 10 mg daily. This was done in the setting of the Bumex drip and his creatinine was actually improving. He was also started on ARB. And his creatinine did not show any worsening. Cardiology declined to start him on Entresto, saying that they prefer to have that done by the patient's regular tandem mill sticker, Dr. Dickinson, in the office. At the end of the hospital stay the patient was excepted to a shelter facility, but after getting ready to take the patient suddenly they do not have bed availability so I did stay in the hospital for a few more days until the second skilled nurse facility could be found. Condition Condition at Discharge: Stable Status at Discharge Functional status at discharge: uses cane/walker Overall status at discharge: patient is progressing back to baseline Time Spent with Patient Time spent providing/coordinating discharge services (# min): 49 Discharge Plan Discharge Plan Patient Disposition: [facility] Facility Activity: No Activity Restriction Diet: Diabetic and Low-Sodium Comment: 1600 ml fluid restriction daily Additional Instructions: SNF to manage: -PT/OT to eval and treat -Monitor VS per protocol -Fall precautions -Perform cardiovascular and respiratory assessments -Monitor intake and output -Daily weight -1600 ml fluid restriction daily -Dietitian recommendations: *Magic cup, 1 container, BID with meals -Continue oxygen at 2L NC -- pt wears this chronically -Continue use of home CPAP at HS -Monitor FSBS ACHS -Change dressing every 3 days: *Mepilex border foam to Coccyx for added protection. -Maintain and perform routine care to chronic gomez catheter -Turn and reposition every 2 hours -Obtain BMP and CBC as ordered -Care to be managed by SNF providers. Weigh patient every day to monitor for return of edema from CHF. Use a standing scale. His best weight in the hospital was 85.0 kg. Over a couple weeks this weight could get as good as 83.0 kg. If his weight goes up by more than 1 kg then increase the Lasix to 60 mg po BID,and continue this until the weight comes back to its baseline. If the weight continues to go up, then increase Lasix to 80 mg po BID, and continue this until the weight comes back to its baseline. Check BMP Q Wednesday and while at SNF. Check CBC Q Wednesday while at SNF. Prescriptions: New magnesium oxide 400 mg (241.3 mg magnesium) Tablet 400 mg PO DAILY 30 Days Qty: 30 12RF furosemide 20 mg Tablet 60 mg PO DAILY.8A 30 Days Qty: 90 12RF spironolactone 50 mg Tablet 50 mg PO DAILY 30 Days Qty: 30 12RF valsartan 40 mg Tablet 40 mg PO BID 30 Days Qty: 60 12RF dapagliflozin propanediol 10 mg Tablet 10 mg PO DAILY Qty: 0 0RF pantoprazole 40 mg Tablet,Delayed Release (Dr/Ec) 40 mg PO DAILY Qty: 0 0RF insulin aspart U-100 100 unit/mL (3 mL) Insulin Pen See Protocol subcut TID.WM.HS Qty: 0 0RF Protocol: Corrective Scale #5 (TDI 101-125 UNITS) Condition: Corrective Scale #5 (TDI 101-125 UNITS) Condition: Dose/Route: Instruction: Condition: Fingerstick Blood Glucose Dose/Route: Insulin Units Condition: 150-199 mg/dl Dose/Route: 5 unit Condition: 200-249 mg/dl Dose/Route: 9 unit Condition: 250-299 mg/dl Dose/Route: 14 unit Condition: 300-349 mg/dl Dose/Route: 18 unit Condition: 350-399 mg/dl Dose/Route: 22 unit Condition: greater than or = 400 mg/dl Dose/Route: 24 unit Instruction: Call Provider Protocol Text: *If the corrective scale dose has been administered within the past 4 hours, do not use corrective scale again unless approved by prescriber* melatonin 5 mg Tablet 5 mg PO QHS PRN (Reason: Insomnia) Qty: 0 0RF Tradjenta 5 mg Tablet 5 mg PO DAILY.WITH.BKFAST Qty: 0 0RF prednisone 10 mg tablet See Taper PO DAILY Qty: 70 0RF Taper: Prednisone Taper 40 mg Daily for 7 Days and 0 Hour 30 mg Daily for 7 Days and 0 Hour 20 mg Daily for 7 Days and 0 Hour 10 mg Daily for 7 Days and 0 Hour Rx Instructions: Take in the morning with food. insulin glargine [Lantus Solostar U-100 Insulin] 100 unit/mL (3 mL) Insulin Pen 25 unit subcut BID Qty: 0 0RF Metamucil Fiber Singles 3.4 gram Powder In Packet 1 packet PO DAILY Qty: 0 0RF Continued acetaminophen 500 mg capsule 1,000 mg PO Q6HR PRN (Reason: fever or pain) allopurinol 300 mg tablet 300 mg PO DAILY Eliquis 5 mg tablet 5 mg PO Q12HR aspirin 81 mg capsule 81 mg PO .weekly Rx Instructions: Wednesday calcium citrate-vitamin D3 315 mg-5 mcg (200 unit) tablet 1 tab PO DAILY carvedilol [Coreg] 6.25 mg tablet 6.25 mg PO BID Rx Instructions: must administer with a meal/food mecobalamin (vitamin B12) 1,000 mcg tablet,chewable 1,000 mcg PO DAILY multivitamin [Daily Multi-Vitamin] Tablet 1 tab PO DAILY Ozempic 1 mg/dose (4 mg/3 mL) pen injector 1 mg subcut QWEEK simvastatin 20 mg tablet 20 mg PO DAILY terazosin 10 mg capsule 10 mg PO HS finasteride 5 mg tablet 5 mg PO DAILY albuterol sulfate 2.5 mg /3 mL (0.083 %) solution for nebulization 2.5 mg inhalation Q4HR PRN (Reason: shortness of breath or wheezing) potassium chloride 10 mEq tablet extended release 10 meq PO DAILY Qty: 30 0RF Discontinued omeprazole 20 mg capsule,delayed release(DR/EC) 20 mg PO DAILY isosorbide mononitrate 30 mg Tablet Extended Release 24 Hr 30 mg PO QAM 30 Days Qty: 30 12RF hydralazine 50 mg Tablet 50 mg PO BID 30 Days Qty: 60 12RF bumetanide 0.5 mg Tablet 1.5 mg PO DAILY@0800 Qty: 0 0RF insulin aspart U-100 100 unit/mL (3 mL) Insulin Pen See Protocol subcut TID.WM.HS Qty: 0 0RF Protocol: Corrective Scale #1 (TDI </= 25) Condition: Corrective Scale #1 (TDI <=25) Condition: Dose/Route: Instruction: Condition: Fingerstick Blood Glucose Dose/Route: Insulin Units Condition: 150-199 mg/dl Dose/Route: 1 unit Condition: 200-249 mg/dl Dose/Route: 2 unit Condition: 250-299 mg/dl Dose/Route: 3 unit Condition: 300-349 mg/dl Dose/Route: 4 unit Condition: 350-399 mg/dl Dose/Route: 5 unit Condition: greater than or = 400 mg/dl Dose/Route: 6 unit Instruction: CallProvider Protocol Text: *If the corrective scale dose has been administered within the past 4 hours, do not use corrective scale again unless approved by prescriber* Patient Comments: If blood sugar 150-199, give 1 Units If blood sugar 200-249, give 2 Units If blood sugar 250-299, give 3 Units If blood sugar 300-349, give 4 Units If blood sugar 350-399, give 5 Units If blood sugar > 400 call insulin glargine [Lantus Solostar U-100 Insulin] 100 unit/mL (3 mL) Insulin Pen 18 unit subcut DAILY Qty: 0 0RF insulin glargine [Lantus Solostar U-100 Insulin] 100 unit/mL (3 mL) Insulin Pen 8 unit subcut QHS Qty: 0 0RF spironolactone 25 mg tablet 12.5 mg PO DAILY Qty: 30 0RF Other Ambulatory Orders: Basic Metabolic Panel (2XW) Timeframe: 20240529 Location: Determined by Patient Ordered By: Ricahrd Zamora Basic Metabolic Panel (2XW) Timeframe: 20240530 Location: Determined by Patient Ordered By: Richard Zamora Basic Metabolic Panel (2XW) Timeframe: 20240531 Location: Determined by Patient Ordered By: Richard Zamora Basic Metabolic Panel (2XW) Timeframe: 20240601 Location: Determined by Patient Ordered By: Richard Zamora Complete Blood Count Auto Diff (Q7D) Timeframe: 20240529 Location: Determined by Patient Ordered By: Richard Zamora Complete Blood Count Auto Diff (Q7D) Timeframe: 20240605 Location: Determined by Patient Ordered By: Richard Zamora Complete Blood Count Auto Diff (Q7D) Timeframe: 20240612 Location: Determined by Patient Ordered By: Richard Zamora Complete Blood Count Auto Diff (Q7D) Timeframe: 20240619 Location: Determined by Patient Ordered By: Richard Zamora Complete Pulmonary Function (Routine) Timeframe: 20240526 Location: Determined by Patient Ordered By: Richard Zamora XR chest 2V* (Routine) Timeframe: 20240706 Location: Determined by Patient Ordered By: Richard Zamora Follow Up: [facility] Scheduling [Outside] (Please call to pre-register for your outpatient PFT and CXR. ) Osvaldo Dickinson MD [Active Staff] - 06/15/24 2:30 pm Darshan Willams MD [Active Staff] - 07/06/24 1:30 pm (Post hospital follow-up appointment. The patient should have repeat two-view chest x-ray as well as pulmonary function tests prior to his office follow-up visit.) Lori Medina MD [Primary Care Provider] - (Please arrange a follow-up appointment once discharged from SNF. ) Continuity of Care Document Health Concerns: A [facility] screening has identified you as FRAIL or AT RISK FOR FRAILTY. This puts you at a higher risk for infection, illness, falls,and other injuries. Here are four ways to help you reduce your risk of frailty: 1. IDENTIFY EARLY SIGNS OF FRAILTY ? Discuss contributing factors and concerns with your doctor 2. BE ACTIVE ? Walking and light strengthening exercises will help reduce weakness 3. EAT WELL ? Aim for three healthy meals a day that are high in protein 4. THINK POSITIVE ? Keep your mind active by being sociable and continuing to learn References: Stay Strong: Four Ways to Beat the Frailty [email or web address]-[email or web address]-g our-[email or web address] sjr-po-qyqq-vmk-thrxklr-ymom Exam Physical Exam Vital Signs: Temp Pulse Resp BP Pulse Ox O2 Del Method O2 Flow Rate 97.7 F 70 18 123/64 94 L Nasal Cannula 2 05/27/24 08:00 05/27/24 12:00 05/27/24 12:00 05/27/24 12:00 05/27/24 12:00 05/27/24 12:00 05/27/24 12:00 FiO2 30 05/22/24 23:41 Narrative: General: Sitting up in a chair and getting ready to get in the wheelchair. Pulm: Scattered crackles in the bases bilaterally that are consistent with interstitial lung disease/pulmonary fibrosis. Lower extremities: Minimal edema in the ankles bilaterally. Home equipment: He has some sleep apnea machine with him. Cardiac: Regular rate and rhythm. to auscultation. Diagnostic Studies Completed and Pending Studies Labs on day of discharge: 05/27/24 06:35: Magnesium 1.6 L 05/27/24 06:32: POC Glucose 82 05/26/24 21:06: POC Glucose 164 05/26/24 15:39: POC Glucose 289 05/25/24 22:23: POC Glucose 206 05/24/24 16:24: POC Glucose 183 05/24/24 11:20: POC Glucose 269 05/23/24 16:13: POC Glucose 95 05/23/24 11:36: POC Glucose 406 H*, POC Glucose Comment 05/23/24 11:34: POC Glucose 475 H*, POC Glucose Comment Documented By: Richard Zamora, [id number] Signed By: <Electronically signed by Richard Zamora, DO> 05/27/24 1621 [facility] Work Phone: Evaluation note* Diagnosis Sick sinus syndrome (CMS/HCC)- Primary Sinoatrial node dysfunction Mobitz type II atrioventricular block Mobitz (type) II atrioventricular block Pacemaker Cardiac pacemaker in situ Essential hypertension Unspecified essential hypertension Dilated cardiomyopathy (CMS/HCC) Other primary cardiomyopathies Paroxysmal atrial fibrillation (CMS/HCC) Atrial fibrillation documented in this encounter [facility] Work Phone: Evaluation note* Diagnosis Essential hypertension- Primary Unspecified essential hypertension Sick sinus syndrome (Multi) Sinoatrial node dysfunction Mixed hyperlipidemia Paroxysmal atrial fibrillation (Multi) Atrial fibrillation Dilated cardiomyopathy (Multi) Other primary cardiomyopathies Pacemaker Cardiac pacemaker in situ BMI 33.0-33.9,adult documented in this encounter [facility] Work Phone: Evaluation note* Diagnosis Other atopic dermatitis- Primary Seborrheic keratosis Lentigines History of SCC (squamous cell carcinoma) of skin Personal history of other malignant neoplasm of skin documented in this encounter [facility] HealthcareEvaluation note* Diagnosis Paroxysmal atrial fibrillation (Multi)- Primary Atrial fibrillation Sick sinus syndrome (Multi) Sinoatrial node dysfunction Pacemaker Cardiac pacemaker in situ Essential hypertension Unspecified essential hypertension Cardiomyopathy, unspecified type (Multi) Mixed hyperlipidemia Stage 4 chronic kidney disease (Multi) Non-smoker BMI 30.0-30.9,adult documented in this encounter [facility] Work Phone: Evaluation note* Diagnosis VIRGILIO (obstructive sleep apnea)- Primary Obstructive sleep apnea (adult) (pediatric) Hypersomnia Hypersomnia, unspecified PLMD (periodic limb movement disorder) Periodic limb movement disorder Obesity due to excess calories, unspecified classification, unspecified whether serious comorbidity present Snoring Other dyspnea and respiratory abnormality documented in this encounter [facility] HealthcareEvaluation noteNo assessment information available[facility] Work Phone: Evaluation note* Diagnosis Nonischemic cardiomyopathy (Multi)- Primary Other primary cardiomyopathies Sick sinus syndrome (Multi) Sinoatrial node dysfunction Paroxysmal atrial fibrillation (Multi) Atrial fibrillation Pacemaker Cardiac pacemaker in situ Mixed hyperlipidemia Essential hypertension Unspecified essential hypertension Stage 4 chronic kidney disease (Multi) Non-smoker BMI 27.0-27.9,adult group home resident documented in this encounter [facility] Work Phone: History of Present illness [...] on the basis of his improve lifestyle modification.[facility] [address] DO Work Phone: History of Present [...] the merits of diet and weight loss. 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 [facility] [place] DO Work Phone: Hospital Discharge instructions Additional Instructions SNF to manage: -PT/OT to eval and treat -Monitor VS per protocol -Fall precautions -Perform cardiovascular and respiratory assessments -Monitor intake and output -Daily weight -1600 ml fluid restriction daily -Dietitian recommendations: *Magic cup, 1 container, BID with meals -Continue oxygen at 2L NC -- pt wears this chronically -Continue use of home CPAP at HS -Monitor FSBS ACHS -Change dressing every 3 days: *Mepilex border foam to Coccyx for added protection. -Maintain and perform routine care to chronic gomez catheter -Turn and reposition every 2 hours -Obtain BMP and CBC as ordered -Care to be managed by SNF providers. Weigh patient every day to monitor for return of edema from CHF. Use a standing scale. His best weight in the hospital was 85.0 kg. Over a couple weeks this weight could get as good as 83.0 kg. If his weight goes up by more than 1 kg then increase the Lasix to 60 mg po BID, and continue this until the weight comes back to its baseline. If the weight continues to go up, then increase Lasix to 80 mg po BID, and continue this until the weight comes back to its baseline. Check BMP Q Wednesday and while at SNF. Check CBC Q Wednesday while at [facility] Work Phone: Reason for referral (narrative)* Consultation (Routine) - Authorized Specialty Diagnoses / Procedures Referred By Contac t Referred To Contact Cardiology Diagnoses Sick sinus syndrome (CMS/HCC) Procedures Follow Up In Cardiology Varghese Caal MD [address] [place] [address] 2, [address] [place] [address] Varghese Caal MD [address] [place] [address] 2, [place] [address] [place] [id number] Referral ID Status Reason Start Date Expiration Date V isits Requested Visits Authorized [id number] Authorized 02/10/2023 02/10/2024 1 1 [facility] Work Phone: Reason for referral (narrative)* Consultation (Routine) - Authorized Specialty Diagnoses / Procedures Referred By Contfederico t Referred To Contact Cardiology Diagnoses Sick sinus syndrome (Multi) Procedures Follow Up In Cardiology Varghese Caal MD [address] [facility] 2, [address] [address] Osvaldo Dickinson MD [address] [place] [address] 2, [address] [place] [id number] Referral ID Status Reason Start Date Expiration Date V isits Requested Visits Authorized [id number] Authorized 08/25/2023 08/24/2024 1 1 [facility] Work Phone: Chief Complaint LEIGHTON ARCINIEGA [...] Date/ Time Advance Directives No January 2:23pm Advance Directive Response Recorded Date/ Time Advance Directives No January 3:23pm Chief Complaint and Reason for Visit Chief Complaint Admit Date Congestive Heart Failure May 09, 2024 7:47pm Congestive Heart Failure May 13, 2024 12:34pm Unknown May 18, 2024 10:55pm CHF, UTI, Pulmonary Edema May 20 2:38am CHF, UTI, Pulmonary Edema May 20 12:29pm CHF, UTI, Pulmonary Edema May 20 12:59pm J44.9 J84.9 R91.8 June 26, 2024 1:29 pm J44.9 J84.9 R91.8 June 26, 2024 5:40 pm Reason for Visit Admit Date CHF (congestive heart failure) May 09, 2024 7:47pm Chronic kidney disease May 09 7:47pm Pacemaker May 09, 2024 7:47pm Sick sinus syndrome May 09, 2024 7:47pm Afib May 20, 2024 2:38 am Chronic indwelling Gomez catheter May 20, 2024 2:38am COPD (chronic obstructive pulmonary dise ase) May 20, 2024 2:38am Diabetes May 20, 2024 2:38 am Hypomagnesemia May 20, 2024 2:38 am Interstitial lung disease May 20 2:38am Iron deficiency anemia May 20, 2024 2 :38am Obstructive sleep apnea May 20, 2024 2:38am Acute HFrEF (heart failure with reduced ejection fraction) May 20, 2024 2:38am Chronic kidney disease May 20, 2024 2 :38am Pacemaker May 20, 2024 2:38 am Sick sinus syndrome May 20, 2024 2:38 am Acute on chronic hypoxic respiratory chhaya lure May 20, 2024 2:38am Anemia May 20, 2024 2:38 am Hemoptysis May 20, 2024 2:38 am Pulmonary infiltrates May 20, 2024 2: 38am Chief Complaint Admit Date Unknown March 11, [...] content) DATE CREATED AUTHOR 06/01/2022 [facility] DATE CREATED AUTHOR AUTHOR'S ORGANIZ ATION 07/03/2022 [employer] DATE CREATED AUTHOR AUTHOR'S ORGANIZ ATION 11/05/2022 [facility] DATE CREATED AUTHOR AUTHOR'S ORGANIZ ATION 01/18/2024 [facility] DATE CREATED AUTHOR AUTHOR'S ORGANIZ ATION 02/21/2024 [facility] DATE CREATED AUTHOR AUTHOR'S ORGANIZ ATION 04/02/[address] [facility] DATE CREATED AUTHOR AUTHOR'S ORGANIZ ATION [facility]/07/2024 [facility] DATE CREATED AUTHOR AUTHOR'S ORGANIZ ATION 04/28/2024 [facility] DATE CREATED AUTHOR AUTHOR'S ORGANIZ ATION 05/21/2024 [facility] DATE CREATED AUTHOR AUTHOR'S ORGANIZ ATION 05/24/2024 [facility] DATE CREATED AUTHOR AUTHOR'S ORGANIZ ATION 06/17/2024 [facility] DATE CREATED AUTHOR AUTHOR'S ORGANIZ ATION 06/20/2024 [facility] DATE CREATED AUTHOR AUTHOR'S ORGANIZ ATION 07/05/2024 [facility] DATE CREATED AUTHOR AUTHOR'S ORGANIZ ATION 07/18/2024 [facility] DATE CREATED AUTHOR AUTHOR'S ORGANIZ ATION 07/25/2024 [facility] DATE CREATED AUTHOR AUTHOR'S ORGANIZ ATION 08/06/2024 [facility] Reason for Visit (unrecogniz ed section and content) Reason Comments Follow-up 6-9mo Reason Comments Follow-up 6-9 months Specialty Diagnoses / Procedures Referred By Contac t Referred To Contact Cardiology Diagnoses Sick sinus syndrome (Multi) Procedures Follow Up In Cardiology Varghese Caal MD [address] [place] [address], [address] [address] Varghese Caal MD [address] [place] [address], [address] [id number] Referral ID Status Reason Start Date Expiration Date V isits Requested Visits Authorized [id number] Authorized 02/10/2023 02/10/2024 1 1 Reason Comments Skin Check Follow-up Reason Comments Follow-up 6-9 months Specialty Diagnoses / Procedures Referred By Contac t Referred To Contact Cardiology Diagnoses Sick sinus syndrome (Multi) Procedures Follow Up In Cardiology Varghese Caal MD Traboulssi, Mourhaf, MD [address] [place] [address], [address] [address] Phone: tel: fax: Referral ID Status Reason Start Date Expiration Date V isits Requested Visits Authorized [id number] Authorized 08/25/2023 08/24/2024 1 1 Reason Comments Sleep Apnea Reason Comments Follow-up [facility] discharge for h eart failure Care Teams (unrecognized sec tion and content) Team Status: Active Member Role Status Dates Lori Medina MD Primary Care Provider Active Team Status: Active Member Role Status Dates [...] 2024 End: May 13, 2024 Sanaz Stewart [facility]- Other Provider Active Sta rt: May 09, 2024 End: May 13, 2024 Team Status: Active Member Role Status Dates Lori Medina MD Primary Care Provider Active Start: May 13, 2024 Alexa Corona MD Admit Provider, Oth er Provider Active Start: May 13, 2024 Gabriela Adame RN Other Provider Active Star t: May 13, 2024 Shirley Harvey DO Other [...] Active Start: ebruary 2024 Sanaz Stewart , [employer] Other Provider Active Sta rt: May 13, 2024 John Nettles MD Attending Provider Active Start: April Team Status: Inactive Member Role Status Dates Dacia Rene DO Attending Provider Active Start: May 18, 2024 End: May 18, 2024 Team Status: Inactive Member Role Status Dates Lori Medina MD Primary Care Provider Active Start: May 20, 2024 End: May 27, 2024 Don Patel DO Admit Provider Active Start: May 20, 2024 End: May 27, 2024 Shirley Harvey DO Referring Provider Active S tart: May 20, 2024 End: May 27, 2024 Richard Zamora DO Attending Provider Active Start: May 20, 2024 End: May 27, 2024 Autumn Woody [facility]N [facility] Other Provider Active Start: May 20, 2024 End: May 27, 2024 Darshan Willams MD Other Provider Active Start: May 20, 2024 End: May 27, 2024 Demond Rdz MD Other Provider Active St art: May 20, 2024 End: May 27, 2024 Chun Galvin MD Other Provider Active Start: 2024 End: May 27, 2024 Cody James DO Other Provider Active Start: May 20, 2024 End: May 27, 2024 Rick Roy DO Other Provider Active Start: May 20, 2024 End: May 27, 2024 Titi Solomon MD Other Provider Active Start: 2024 End: May 27, 2024 Denny Weldon MD Other Provider Activ e Start: May 20, 2024 End: May 27, 2024 Yue Lindsey MD Other Provider Active Start: 2024 End: May 27, 2024 Sarah Reyes MD Other Provider Active Start: May 20, 2024 End: May 27, 2024 Team Status: Active Member Role Status Dates Lori Medina MD Primary Care Provider Active Start: May 20, 2024 Don Patel DO Admit Provider Active Start: May 20, 2024 Clau Edwards MD Other Provider Active Start: May 20, 2024 Gabriela Adame RN Other Provider Active Star t: May 20, 2024 Shirley Harvey DO Other Provider Active Start : May 20, 2024 Rupert Rey MD Other Provider Active Start: May 20, 2024 Varghese Caal MD Other Provider Active Start: May 20, 2024 Osvaldo Dickinson MD Other Provider Active St art: May 20, 2024 Ben Calderon MD Other Provider Active Start: May 20, 2024 Allie Ramírez APRN Other Provider Active Start : May 20, 2024 Evelyn Zhang MD Other Provider Active Start: 2024 Lorenzo Dotson MD Other Provider Active Start: May 20, 2024 Rajat Foster MD Other Provider Active Start: 2024 Sanaz Stewart , ADJUNCT PROFESSOR OF ENGLISH-BC Other Provider Active Sta rt: May 20, 2024 Autumn Woody APRN ACNP-BC Other Provider Active Start: May 20, 2024 Darshan Willams MD Other Provider Active Start: May 20, 2024 Demond Rdz MD Other Provider Active St art: May 20, 2024 Chun Galvin MD Other Provider Active Start: 2024 Cody James DO Other Provider Active Start: May 20, 2024 Rick Roy DO Other Provider Active Start: May 20, 2024 Titi Solomon MD Other Provider Active Start: 2024 Denny Weldon MD Other Provider Active Start: May 20 Yue Lindsey MD Attending Provider, Other Provider Active Start: May 20, 2024 Sarah Reyes MD Other Provider Active Start: May 20, 2024 Team Status: Active Member Role Status Dates Lori Medina MD Primary Care Provider Active Start: May 20, 2024 Don Patel DO Admit Provider Active Start: May 20, 2024 Clau Edwards MD Other Provider Active Start: May 20, 2024 Gabriela Adame RN Other Provider Active Star t: May 20, 2024 Shirley Harvey DO Other Provider Active Start : May 20, 2024 Rupert Rey MD Other Provider Active Start: May 20, 2024 Varghese Caal MD Other Provider Active Start: May 20, 2024 Osvaldo Dickinson MD Other Provider Active St art: May 20, 2024 Ben Calderon MD Other Provider Active Start: May 20, 2024 Allie Ramírez APRN Other Provider Active Start : May 20, 2024 Evelyn Zhang MD Other Provider Active Start: 2024 Lorenzo Dotson MD Other Provider Active Start: May 20, 2024 Rajat Foster MD Other Provider Active Start: 2024 Sanaz Stewart ADJUNCT PROFESSOR OF ENGLISH-BC Other Provider Active Sta rt: May 20, 2024 Autumn Woody APRN ACNP-BC Other Provider Active Start: May 20, 2024 Darshan Willams MD Other Provider Active Start: May 20, 2024 Demond Rdz MD Other Provider Active St art: May 20, 2024 Chun Galvin MD Other Provider Active Start: 2024 Cody James DO Other Provider Active Start: May 20, 2024 Rick Roy DO Other Provider Active Start: May 20, 2024 Titi Solomon MD Other Provider Active Start: 2024 Denny Weldon MD Other Provider Activ e Start: May 20, 2024 Yue Lindsey MD Other Provider Active Start: 2024 Sarah Reyes MD Other Provider Active Start: May 20, 2024 John Nettles MD Attending Provider Activ e Start: May 20, 2024 Team Status: Inactive Member Role Status Dates Lori Medina MD Primary Care Provider Active Start: June 26, 2024 End: June 26, 2024 Richard Zamora , Attending Provider Active Start: June 26, 2024 End: June 26, 2024 Team Status: Active Member Role Status Dates Lori Medina MD Primary Care Provider Active Start: June 26, 2024 Richard Zamora , Other Provider Active Start: June 26, 2024 Darshan Willams MD Attending Provider Active Start: June 26, 2024 Team Status: Inactive Member Role Status Dates Benton Vasquez DO Attending Provider Active S tart: March 11, 2024 End: March 11, 2024 Team Status: Inactive Member Role Status Dates Benton Vasquez DO Attending Provider Active S tart: March 28, 2024 End: March 28, 2024 Letterpress Setter Relationship Specialty Start Date End Date Andrea Espinoza DO [address] [place] [id number] PCP - General 03/22/99 Letterpress Setter Relationship Specialty Start Date End Date Andrea Espinoza DO [address] [place] [id number] PCP - General 03/22/99 Letterpress Setter Relationship Specialty Start Date End Date Lori Medina MD [address] [place] [address] PCP - General Family Medicine 10/09/22 Letterpress Setter Relationship Specialty Start Date End Date Andrea Espinoza DO [address] [place] [id number] PCP - General 03/22/99 Letterpress Setter Relationship Specialty Start Date End Date Lori Medina MD [address] [place] [address] PCP - General Family Medicine 10/09/22 Letterpress Setter Relationship Specialty Start Date End Date Lori Medina MD [address] [place] [address] PCP - General Family Medicine 10/09/22 Letterpress Setter Relationship Specialty Start Date End Date Andrea Espinoza DO [address] [place] [address] PCP - General 03/22/99 Team Status: Inactive Member Role Status Dates Lori Medina MD Primary Care Provider Active Start: June 29, 2024 End: June 29, 2024 Richard Zamora DO Attending Provider Active Start: June 29, 2024 End: June 29, 2024 Goals (unrecognized section and content) Goals [...] BE BASED ON THE PRIMARY CLINICAL RECORDS. [facility]. provides no warranty or guarantee of the accuracy or completeness of information in this document.
--- NOTE | 2024-08-17 10:48 | ED.GENADUL1 ---
HPI HPI - General Adult General Chief complaint: Urogenital-Male Stated complaint: UTI COMPLAINTS Time Seen by Provider: 08/17/24 10:44 Source: patient Mode of arrival: walk-in History of Present Illness HPI narrative: 78-year-old male presents for frequency and dysuria. He believes he has a UTI. He had a urologic procedure on July 24. No fever back pain or vomiting. He has had this for a week or 2. Related Data Home Medications ?Medication ?Instructions ?Recorded ?Confirmed acetaminophen 500 mg capsule 1,000 mg PO Q6H PRN fever or pain 02/26/24 05/18/24 allopurinol 300 mg tablet 300 mg PO DAILY 02/26/24 05/18/24 apixaban 5 mg tablet (Eliquis) 5 mg PO Q12H 02/26/24 05/18/24 aspirin 81 mg tablet,delayed 81 mg PO .weekly 02/26/24 05/18/24 release (Adult Aspirin Regimen) calcium 315 mg (as 1 tab PO DAILY 02/26/24 05/18/24 citrate)-vitamin D3 5 mcg (200 unit) tablet (Calcium Citrate + D) carvedilol 6.25 mg tablet 6.25 mg PO Q12H 02/26/24 05/18/24 cyanocobalamin (vitamin B-12) 1,000 mcg PO DAILY 02/26/24 05/18/24 1,000 mcg tablet (Vitamin B-12) multivitamin (Daily Multi-Vitamin 1 tab PO DAILY 02/26/24 05/19/24 tablet) omeprazole 20 mg capsule,delayed 20 mg PO DAILY 02/26/24 05/19/24 release semaglutide 1 mg/dose (4 mg/3 mL) 1 mg subcut QWEEK 02/26/24 05/19/24 subcutaneous pen injector (Ozempic) simvastatin 20 mg tablet 20 mg PO DAILY 02/26/24 05/19/24 spironolactone 25 mg tablet 25 mg PO DAILY 02/26/24 05/19/24 terazosin 10 mg capsule 10 mg PO BEDTIME 02/26/24 05/19/24 finasteride 5 mg tablet 5 mg PO DAILY 05/03/24 05/18/24 bumetanide 0.5 mg tablet 1.5 mg PO DAILY 05/19/24 05/19/24 hydralazine 50 mg tablet 50 mg PO BID 05/19/24 05/19/24 insulin aspart U-100 100 unit/mL 1 sliding scale dose subcut ACHS 05/19/24 05/19/24 (3 mL) subcutaneous pen (Novolog FlexPen U-100 Insulin aspart) insulin glargine 100 unit/mL (3 8 unit subcut .q hs 05/19/24 05/19/24 mL) subcutaneous pen (Lantus Solostar U-100 Insulin) insulin glargine 100 unit/mL (3 18 unit subcut QAM 05/19/24 05/19/24 mL) subcutaneous pen (Lantus Solostar U-100 Insulin) isosorbide mononitrate 30 mg 30 mg PO QAM 05/19/24 05/19/24 tablet,extended release 24 hr potassium chloride 10 mEq 10 meq PO QAM 05/19/24 05/19/24 tablet,extended release Previous Rx's ?Medication ?Instructions ?Recorded albuterol sulfate 2.5 mg/3 mL 2.5 mg (3 mL) inhalation Q4H PRN 05/06/24 (0.083 %) solution for nebulization bronchospasm #90 mL hyoscyamine sulfate 0.125 mg 0.125 mg PO Q4H PRN bladder spasms 07/24/24 tablet (Levsin) #18 tabs ciprofloxacin HCl 250 mg tablet 250 mg PO BID #14 tabs 08/17/24 (Cipro) Allergies Allergy/AdvReac Type Severity Reaction Status Date / Time fosinopril (From Monopril) Allergy Severe shortness Verified 05/18/24 22:15 of breath metoprolol Allergy Severe shortness Verified 05/18/24 22:15 of breath strawberry Allergy Severe Rash Verified 05/18/24 22:15 Opioid HPI Opioid Management Most Recent Opioid Data: Last Pain Scale 8 07/24/24, 16:57 Last Pain Intensity 0 05/05/24, 10:47 Last ORT Total Score 0 05/19/24, 00:55 Last ORT Risk Category Low Risk 05/19/24, 00:55 Review of Systems ROS Narrative A ten point review of systems is negative except as noted above. [facility] Medical History (Updated 08/17/24 @ 10:59 by Hector Vasquez MD) Fever ?R50.9 - Fever, unspecified (ICD-10) Acute UTI ?N39.0 - Urinary tract infection, site not specified (ICD-10) CHF (congestive heart failure) ?I50.9 - Heart failure, unspecified (ICD-10) Hypoxia ?R09.02 - Hypoxemia (ICD-10) Congestive heart failure ?I50.9 - Heart failure, unspecified (ICD-10) Pneumonia ?J18.9 - Pneumonia, unspecified organism (ICD-10) Acute respiratory distress ?R06.03 - Acute respiratory distress (ICD-10) Pneumonia ?J18.9 - Pneumonia, unspecified organism (ICD-10) Acute on chronic diastolic (congestive) heart failure ?I50.33 - Acute on chronic diastolic (congestive) heart failure (ICD-10) Hospital acquired PNA ?J18.9 - Pneumonia, unspecified organism (ICD-10) ?Y95 - Nosocomial condition (ICD-10) Shortness of breath ?R06.02 - Shortness of breath (ICD-10) Congestive heart failure ?I50.9 - Heart failure, unspecified (ICD-10) Pneumonia ?J18.9 - Pneumonia, unspecified organism (ICD-10) Severe sepsis ?A41.9 - Sepsis, unspecified organism (ICD-10) ?R65.20 - Severe sepsis without septic shock (ICD-10) COPD exacerbation ?J44.1 - Chronic obstructive pulmonary disease with (acute) exacerbation (ICD-10) Acute exacerbation of chronic heart failure ?I50.9 - Heart failure, unspecified (ICD-10) Acute hypoxemic respiratory failure ?J96.01 - Acute respiratory failure with hypoxia (ICD-10) Acute kidney injury ?N17.9 - Acute kidney failure, unspecified (ICD-10) Bladder spasm ?N32.89 - Other specified disorders of bladder (ICD-10) Urinary tract infection ?N39.0 - Urinary tract infection, site not specified (ICD-10) Urinary tract infection ?N39.0 - Urinary tract infection, site not specified (ICD-10) Failure of outpatient treatment ?Z78.9 - Other specified health status (ICD-10) Urinary tract infection ?N39.0 - Urinary tract infection, site not specified (ICD-10) Skin cancer ?C44.90 - Unspecified malignant neoplasm of skin, unspecified (ICD-10) Myocardial infarction ?I21.9 - Acute myocardial infarction, unspecified (ICD-10) Pacemaker ?Z95.0 - Presence of cardiac pacemaker (ICD-10) CKD (chronic kidney disease) ?N18.9 - Chronic kidney disease, unspecified (ICD-10) CAD (coronary artery disease) ?I25.10 - Atherosclerotic heart disease of [place] coronary artery without angina pectoris (ICD-10) A-fib ?I48.91 - Unspecified atrial fibrillation (ICD-10) Erectile dysfunction ?N52.9 - Male erectile dysfunction, unspecified (ICD-10) UTI (urinary tract infection) ?N39.0 - Urinary tract infection, site not specified (ICD-10) GERD (gastroesophageal reflux disease) ?K21.9 - Gastro-esophageal reflux disease without esophagitis (ICD-10) Hypertension ?I10 - Essential (primary) hypertension (ICD-10) Diabetes ?E11.9 - Type 2 diabetes mellitus without complications (ICD-10) Surgical History History of arthroscopic knee surgery ?Z98.890 - Other specified postprocedural states (ICD-10) Hx of tonsillectomy ?Z90.89 - Acquired absence of other organs (ICD-10) Family History Mother Family history of CHF (congestive heart failure) Family history of myocardial infarction Family history of hypertension Family history of diabetes mellitus Family history of COPD (chronic obstructive pulmonary disease) Grandmother Family history of CHF (congestive heart failure) Brother Family history of CHF (congestive heart failure) Family history of myocardial infarction Family history of hypertension Family history of COPD (chronic obstructive pulmonary disease) Father Kidney failure Social History Within the past year, how often did you have a drink containing alcohol: never Score interpretation: A score less than 4 is consistent with normal alcohol consumption. Smoking status: Former smoker Non-prescribed substance use: denies use Known occupational exposures/hazards: No Highest level of school completed/degree received: some college, no degree Do you want help with school or training: No Little interest or pleasure in doing things: not at all Feeling down, depressed, or hopeless: not at all Gender Identity: male Exam Narrative Exam Narrative: Nurses note and vital signs reviewed and patient is not hypoxic. General: The patient appears well and in no apparent distress. Patient is resting comfortably on cart. Skin: Warm, dry, no pallor noted. There is no rash noted. Head: Normocephalic, atraumatic Eye: Normal conjunctiva, no drainage Ears, Nose, Mouth, and Throat: oral mucosa is moist. Nares patent. Cardiovascular: Tachycardic Respiratory: Patient is in no distress, no accessory muscle use, lungs are clear to auscultation, no wheezing, rales or rhonchi Back: non-tender, no CVA tenderness bilaterally to percussion. GI: Soft and nontender Musculoskeletal: The patient has no evidence of calf tenderness, no pitting edema, symmetrical pulses noted bilaterally Neurological: A&O, normal speech Psychiatric: Cooperative Constitutional Vital Signs, click to edit/add: Last Vital Signs Temp 97.5 F L 08/17/24 10:26 Pulse 70 08/17/24 10:26 Resp 18 08/17/24 10:26 BP 120/62 08/17/24 10:26 Pulse Ox 94 L 08/17/24 10:26 Course Vital Signs Vital signs: Vital Signs Temperature 97.5 F L 08/17/24 10:26 Pulse Rate 70 08/17/24 10:26 Respiratory Rate 18 08/17/24 10:26 Blood Pressure 120/62 08/17/24 10:26 Pulse Oximetry 94 L 08/17/24 10:26 Temperature 97.5 F L 08/17/24 10:26 Pulse Rate 70 08/17/24 10:26 Respiratory Rate 18 08/17/24 10:26 Blood Pressure 120/62 08/17/24 10:26 Pulse Oximetry 94 L 08/17/24 10:26 Medical Decision Making MDM Narrative Medical decision making narrative: UTI is identified with culture pending. The patient has a history of some resistance. He states that usually Cipro works so I will prescribe him Cipro. Treatment diagnosis and follow-up were discussed with the patient. Differential Diagnosis Differential Diagnosis: UTI I come dysuria, cystitis Lab Data Lab results reviewed: Yes I reviewed the patient's lab results Labs: Lab Results 08/17/24 Range/Units 10:36 Urine Color Lt. yellow (YELLOW) Urine Clarity Sl cloudy (CLEAR) Urine pH 6.0 (5.0-9.0) Ur Specific [place] <=1.005 A (1.005-1.025) Urine Protein Negative (NEG/TRACE) mg/dL Urine Glucose (UA) 250 A (NEGATIVE) mg/dL Urine Ketones Negative (NEGATIVE) mg/dL Urine Occult Blood Trace-i (NEGATIVE) Urine Nitrite Positive A (NEGATIVE) Urine Bilirubin Negative (NEGATIVE) Urine Urobilinogen 0.2 (0.2-1.0) EU/dL Ur Leukocyte Esterase Large A (NEGATIVE) Urine RBC 0-2 (0-2) #/HPF Urine WBC 50-75 A (NONE SEEN) #/HPF Ur Squamous Epith Cells Rare (NONE/RARE) #/LPF Urine Crystals None seen (None Seen) #/HPF Urine Bacteria Moderate A (NONE SEEN) #/HPF Urine Casts None seen (NONE SEEN) #/LPF Urine Mucus None seen (NONE SEEN) [place] [place] Discharge Chief Complaint: Urogenital-Male Clinical Impression: Urinary tract infection Patient Disposition: Home, Self-Care Time of Disposition Decision: 10:59 Condition: Good Mode of Transportation: Private Vehicle Prescriptions / Home Meds: New ciprofloxacin HCl [Cipro] 250 mg tablet 250 mg PO BID Qty: 14 0RF No Action finasteride 5 mg tablet 5 mg PO DAILY albuterol sulfate 2.5 mg /3 mL (0.083 %) solution for nebulization 2.5 mg inhalation Q4H PRN (Reason: bronchospasm) Qty: 90 11RF bumetanide 0.5 mg tablet 1.5 mg PO DAILY insulin aspart U-100 [Novolog FlexPen U-100 Insulin] 100 unit/mL (3 mL) insulin pen 1 sliding scale dose subcut ACHS Rx Instructions: per sliding scale: blood sugar- 150-199 give 1 unit; 200-249 give 2 units; 250-299 give 3 units;300-349 give 4 units; 350-399 give 5 units; if greater than 400 call MD insulin glargine [Lantus Solostar U-100 Insulin] 100 unit/mL (3 mL) insulin pen 18 unit subcut QAM insulin glargine [Lantus Solostar U-100 Insulin] 100 unit/mL (3 mL) insulin pen 8 unit subcut .q hs isosorbide mononitrate 30 mg tablet extended release 24 hr 30 mg PO QAM potassium chloride 10 mEq tablet extended release 10 meq PO QAM hydralazine 50 mg tablet 50 mg PO BID hyoscyamine sulfate [Levsin] 0.125 mg tablet 0.125 mg PO Q4H PRN (Reason: bladder spasms) Qty: 18 0RF carvedilol 6.25 mg tablet 6.25 mg PO Q12H spironolactone 25 mg tablet 25 mg PO DAILY simvastatin 20 mg tablet 20 mg PO DAILY omeprazole 20 mg capsule,delayed release(DR/EC) 20 mg PO DAILY allopurinol 300 mg tablet 300 mg PO DAILY Eliquis 5 mg tablet 5 mg PO Q12H cyanocobalamin (vitamin B-12) [Vitamin B-12] 1,000 mcg tablet 1,000 mcg PO DAILY aspirin [Adult Aspirin Regimen] 81 mg tablet,delayed release (DR/EC) 81 mg PO .weekly calcium citrate-vitamin D3 [Calcium Citrate + D] 315 mg-5 mcg (200 unit) tablet 1 tab PO DAILY multivitamin [Daily Multi-Vitamin] Tablet 1 tab PO DAILY acetaminophen 500 mg capsule 1,000 mg PO Q6H PRN (Reason: fever or pain) terazosin 10 mg capsule 10 mg PO BEDTIME Ozempic 1 mg/dose (4 mg/3 mL) pen injector 1 mg subcut QWEEK Print Language: Khmer Instructions: Urinary Tract Infection in Men (ED) Referrals: Jayy Dutta MD [Primary Care Provider, Family Practice] - 1 week
[2024-08-17 10:54] LABS: Bacteria Urine MODERATE #/HPF (NONE SEEN); Cast Seen? NONE SEEN #/LPF (NONE SEEN); Crystals Seen? None Seen #/HPF (None Seen); Mucus Urine NONE SEEN (NONE SEEN); RBC Urine 0-2 #/HPF (0-2); Squamous Epithelial Cell Urine RARE #/LPF (NONE/RARE); WBC Urine 50-75 #/HPF (NONE SEEN)
[2024-08-17 10:55] LABS: Urine Culture Indicated YES-FRMC
== END 2024-08-17 11:10 | disposition home or self-care (01) ==
PROVIDERS: Emergency Provider Emergency Medicine; PCP Family Medicine
DX: N39.0 Urinary tract infection, site not specified (principal); R30.0 Dysuria; R35.0 Frequency of micturition; Z79.85 Long-term (current) use of injectable non-insulin antidiabetic drugs
CPT/HCPCS: 81001; 87086; 87088; 87186; 99284

== ENCOUNTER 2024-10-06 21:48 | Emergency (ER) | payer MEDICARE, OTHER, SELFPAY ==
--- OUTSIDE RECORDS SUMMARY | 2024-10-06 21:55 | XMS_ITS | CCD ---
Author Organization [facility] Care Team Providers Care Deputy Attorney General Name Role Phone Andrea Espinoza Unavailable Unavailable [...] Andrea Espinoza DO Primary Care Provider Lori Nugent MD Primary Care Provider [phone] BLANCA ALONSO Attending Unavailable BLANCA ALONSO Attending Unavailable DANK JONES Attending Unavailable BLANCA ALONSO Attending Unavailable BLANCA ALONSO Attending Unavailable BOBO BRENNER Attending Unavailable LORI NUGENT Primary Care Unavailable LORI NUGENT Primary Care Unavailable BEATA DEGROOT Attending Unavailable [...] Admitting Unavailable Lue, Mica M. Attending Unavailable McGuinnVarghese P Admitting Unavailable McGuinn, Varghese P Attending Unavailable McGuinnVarghese P Referring Unavailable Lue, Mica M. Admitting Unavailable Lue, Mica M. Attending Unavailable Lue, Mica M. Attending Unavailable Barb Loza Admitting UnavailBarb Lang Attending Unavailabl e Vini Quinteros Attending Unavailable NAPOLEON TA Attending Unavailab le Lue, Mica MAnisa Attending Unavailable Lori Nugent MD Primary Care Provider Alexa Corona MD Admit Provider Alexa Corona MD Attending Provider Gabriela Adame RN Other Provider Unavailable Shirley Harvey DO Other Provider Rupert Rey MD Other Provider [phone] Varghese Caal MD Other Provider [phone] Osvaldo Dickinson MD Other Provider Ben Calderon MD Other Provider Allie Ramírez APRN Other Provider Evelyn Zhang MD Other Provider Mauri SANDHU, Lorenzo Foreman Other Provider Rajat Foster MD Other Provider Terry [facility], Sanaz L Other Provider [phone] Dacia Rene DO Attending Provider Benton Vasquez DO Attending Provider Unavailab jameson Nugent MD, Lori Vallejo Primary Care Provider Chloe SANDHU, Alexa Admit Provider [phone] Chloe SANDHU, Alexa Attending Provider Deep GODINEZ, Gabriela Other Provider Unavailable Shirley Harvey DO Other Provider Krissy SANDHU, Rupert Other Provider Afua SANDHU, Varghese Lord Other Provider Bobbi SANDHU, Osvaldo Other Provider Kvng SANDHU, Ben Other Provider Allie Ramírez APRN Other Provider Vicente SANDHU, Evelyn Other Provider Mauri SANDHU, Lorenzo Foreman Other Provider Cristian SANDHU, Rajat Other Provider [facility], [facility] Patel Other Provider Edgard , Dacia Carrasquillo Attending Provider [phone] Don Patel DO Admit Provider Richard Zamora DO Attending Provider [phone] Autumn Woody APRN Other Provider Darshan Willams MD Other Provider Kajal SANDHU, Demond Mccray Other Provider Kamar SANDHU, Chun Rockwell Other Provider Cody James DO Other Provider Rick Roy DO Other Provider Juanito SANDHU, Titi Other Provider Fatemeh SANDHU, Denny Holt Other Provider Yue Lindsey MD Other Provider Sarah Reyes MD Other Provider Andrea Espinoza DO Primary Care Provider [phone] Mica Car Attending Unavailable SloaneMica MAnisa Attending Unavailable SloaneMica MAnisa Attending Unavailable Deepti Powell Attending Unavailable SloaneMica MAnisa Attending Unavailable LueMica MAnisa Attending Unavailable LueMica MAnisa Admitting Unavailable Mica Car Attending Unavailable Deepti Powell Attending Unavailable VARGHESE CAAL Attending Unavailable VARGHESE CAAL Referring Unavailable ANDREA ESPINOZA Primary Care Unavailable OSVALDO DICKINSON Attending Unavailable VARGHESE CAAL Referring Unavailable ANDREA ESPINOZA Primary Care Unavailable OSVALDO DICKINSON Attending Unavailable ANDREA ESPINOZA Primary Care Unavailable Orbella Anna X Attending Unavailable Trabrichard Molocf Admitting Unavailable TrabOsvaldo ramos Attending Unavailable Trabouljordan, Mourhaf Referring Unavailable Orzech, Anna X Admitting Unavailable Orzech Anna X Attending Unavailable OrAnna blanco X Attending Unavailable Lori Nugent MD Primary Care Provider [phone] Shirley Harvey DO Referring Provider [phone] Benton Vasquez DO Attending Provider Benton Vasquez Attending Unavailable Benton Vasquez Admitting Unavailable Benton Vasquez Admitting Unavailable Benton Vasquez Attending Unavailable Hernandez Zamoraistopher Attending UnavailLori Varner Primary Care Unavailable Vym, Richard Admitting UnavailLori Varner Primary Care Unavailable Philip Zamoraer Attending Unavailabl e Vym, Richard Admitting UnavailShirley Pringle Referring Unavailable Richard Zamora Attending UnavailLori Varner Primary Care Unavailable Annalise, Autumn Consulting Unavailable Don Patel Admitting Unavailable Darshan Willams Consulting UnavailDemond Quinn Consulting Unavailable Chun Galvin Consulting Unavailable Cody James Consulting Unavailable SamRick adamson Consulting Unavailable Juanito, Basesusana Consulting Unavailable Denny Weldon Consulting Un available Yue Lindsey Consulting Unavailable Sarah Reyes Consulting Unavaila ble Semaskiene, Alexa Admitting Unavailable Semaskiene, Alexa Attending Unavailable Gabriela Adame Consulting Unavailable Lori Nugent Primary Care Unavailable Shirley Harvey Consulting Unavailable Rupert Rey Consulting Unavailable Varghese aCal Consulting Unavail able Osvaldo Dickinson Consulting Unavailable Ben Calderon Consulting Unavailab Allie Rico Consulting Unavailable Evelyn Zhang Consulting Unavailable Lorenzo Dotson Consulting Unavailab Rajat Hook Consulting Unavailable Sanaz Stewart Consulting Unavailable MarkerDacia Attending Unavailable Marker, Dacia Carrasquillo Admitting Unavailable Benton Vasquez Attending Unavailable Benton Vasquez Admitting Unavailable GaleaKimberlyn Admitting Unavailable GaleaKimberlyn J Attending Unavailable Sloane Mica M. Attending Unavailable Lue Mica M. Attending Unavailable Lue, Mica M. Referring Unavailable Lue, Mica M. Attending Unavailable Lue, Mica M. Referring Unavailable GaleaKimberlyn Attending Unavailable Deepti Powell Attending Unavailable Lue, Mica M. Attending Unavailable Lue, Mica M. Referring Unavailable Lue, Mica M. Admitting Unavailable Allergies Allergy Classification Reported Allergen(s) Allergy Type Date of Onset Reaction(s) Facility (10 sources) Enalapril; Translations: [enalapril] Drug Allergy 02-10-20 23 [facility] (20 sources) Metoprolol; Translations: [metoprolol] Drug Allergy 10-12-19 23 Cough, Unknown -[facility] y [facility] DO Work Phone: (7 sources) Fosinopril; Translations: [Monopril] Drug Allergy 03-16-20 14 [facility] Repository (1 source) Metoprolol Drug Allergy 05-16-19 15 [facility] Repository (8 sources) strawberry allergenic extract; Translations: [STRAWBERRY] Drug Allergy 05-16-19 15 Rash [facility] Repository (1 source) tomato allergenic extract Drug Allergy 05-16-19 15 [facility] Repository (16 sources) Fosinopril; Translations: [FOSINOPRIL] Drug Allergy 10-12-19 23 Unknown [facility] Work Phone: (6 sources) hydroCHLOROthiazide / Metoprolol; Translations: [hydrochlorothiazide-m etoprolol] Drug Allergy [facility] Repository (6 sources) [place]; Translations: [Strawberries] Food allergy (disorder) [facility] Repository (6 sources) Tomatoes; Translations: [Tomatoes] Food allergy (disorder) [facility] Repository (1 source) strawberry allergenic extract Drug Allergy 05-16-19 15 [facility] (1 source) Fosinopril Drug Allergy 07-07-19 [facility] Repository (1 source) Metoprolol Drug Allergy 07-07-19 [facility] Repository (1 source) strawberry allergenic extract Drug Allergy 07-07-19 [facility] Repository Medications Current Medications Medication Drug Class(es) Dates Sig (Normalized) Sig (Original) acetaminophen 500 mg oral capsule (20 sources) Start: 05-09-2024 take 2 capsules by mouth every six hours as needed for pain Acetaminophen 500 mg capsule Active 1000 MG PO Every 6 hours as needed for fever or pain May 09, 2024 1:00am take 1 capsule by [facility] every six hours as needed acetaminophen (TylenoL) 325 mg capsule T evelyn 1 capsule (325 mg) by mouth every 6 hours if needed. Active acetaminophen (T ylenol 8 Hour) 650 MG ER tablet Tylenol Active albuterol 0.83 mg/ml inhalation solution (6 sources) beta2-Adrenergic Agonist Start: 05-09-2024 take 2.5 mg by inhalation every four hours as needed for wheezing Albuterol Sulfate 2.5 mg /3 mL (0.083 %) solution for nebulization Active 2.5 MG INHALATION Every 4 hours as needed for shortness of breath or wheezing May 09, 2024 1:00am allopurinol 300 mg oral tablet (20 sources) Xanthine Oxidase Inhibitor Start: 01-14-2021 take 1 tablet by mouth once daily Allopurinol 300 mg tablet Active 300 MG PO Daily May 09, 2024 1:00am apixaban 5 mg oral tablet (18 sources) Factor Xa Inhibitor Start: 05-09-2024 take 1 tablet by mouth every twelve hours Apixaban (Eliquis) 5 mg tablet Active 5 MG PO Every 12 hours May 09, 2024 1:00am Start: 12-16-2021 take 1 tablet by jai th twice daily apixaban (Eliquis) 5 mg tablet Take 1 tablet (5 mg) by mouth 2 times a day. 12/16/2021 Active apixaban (Eliqui s) 5 MG tablet every 12 (twelve) hours. Active aspirin 81 mg oral tablet (20 sources) Platelet Aggregation Inhibitor, Nonsteroidal Anti-inflammatory Drug [...] mg / cholecalciferol 200 unt oral tablet (6 sources) Vitamin D Start: 05-09-2024 take 1 tablet by mouth once daily Calcium Citrate-Vitamin D3 315 mg-5 mcg (200 unit) tablet Active 1 TAB PO Daily May 09, 2024 1:00am carvedilol 6.25 mg oral tablet (20 sources) alpha-Adrener gic Howie, beta-Adrenerg ic Howie [...] D Active dapagliflozin 10 mg oral tablet (5 sources) Sodium-Glucose Cotransporter 2 Inhibitor Start: 05-26-2024 take 1 tablet by mouth once daily Dapagliflozin Propanediol 10 mg Tablet Active 10 MG PO Daily May 26, 2024 1:00am take 0.5 tablet by m outh every twenty-four hours dapagliflozin propanediol (Farxiga) 10 m g Take 0.5 tablets (5 mg) by mouth once every 24 hours. Active finasteride 5 mg oral tablet (7 sources) 5-alpha Reductase Inhibitor Start: 05-09-2024 take 1 tablet by mouth once daily Finasteride 5 mg tablet Active 5 MG PO Daily May 09, 2024 1:00am Fluticasone Propion-Salmeterol (1 source) Corticosteroid, beta2-Adrenergic Agonist Start: 07-06-2024 Fluticasone Propion-Salmeterol (Wixela Inhub) 250-50 mcg/dose blister with device Active 1 INH INHALATION Twice daily July 06, 2024 12:00am furosemide 20 mg oral tablet (20 sources) [...] U-100 100 unit/mL (3 mL) Insulin Pen (10 sources) Start: 05-26-2024 Insulin Aspart U-100 100 unit/mL (3 mL) Insulin Pen Active 0 UNIT SUBCUT 3X/Day with meals and bedtime 0 May 26, 2024 1:00am Please contact the [...] Glargine Active linagliptin 5 mg oral tablet (5 sources) Dipeptidyl Peptidase 4 Inhibitor Start: 5 take 1 tablet by mouth once daily at breakfast Linagliptin (Tradjenta) 5 mg Tablet Active 5 MG PO Daily with breakfast May 26, 2024 1:00am magnesium oxide 400 mg oral tablet (5 sources) Start: 5 take 1 tablet by mouth once daily Magnesium Oxide 400 mg (241.3 mg magnesium) Tablet Active 400 MG PO Daily May 25, 2024 1:00am mecobalamin 1 mg chewable tablet (6 sources) Start: 5 take 1 tablet by mouth once daily Mecobalamin (Vitamin B12) 1,000 mcg tablet,chewable Active 1000 MCG PO Daily May 09, 2024 1:00am melatonin 5 mg oral tablet (5 sources) Start: 5 take 1 [...] Multivitamin Adult Active Multivitamin (Daily Multi-Vitamin) tablet (6 sources) Start: 05-09-2024 take 1 tablet by [...] sources) Polyene Antifungal Start: 08-10-2023 nystatin (Mycostatin) 090026 UNIT/GM powder Indications: Erythema intertrigo Apply to the affected area, twice daily when flared or for maintenance, 30 day supply 60 g 11 08/10/2023 Active pantoprazole 40 mg delayed release oral tablet (5 sources) Proton Pump Inhibitor Start: 05-26-2024 take 1 tablet by mouth once daily Pantoprazole 40 mg Tablet,Delayed Release (Dr/Ec) Active 40 MG PO Daily May 26, 2024 1:00am potassium chloride 10 meq extended release oral tablet (7 sources) Start: 05-13-2024 take 1 tablet by mouth once daily Potassium Chloride 10 mEq tablet extended release Active 10 MEQ PO Daily May 13, 2024 1:00am psyllium 3400 mg powder for oral suspension (5 sources) Start: 05-27-2024 Psyllium Husk (Metamucil Fiber Singles) 3.4 gram Powder In Packet Active 1 PACKET PO Daily May 27, 2024 1:00am ruxolitinib (2 sources) Start: 01-17-2024 Ruxolitinib Phosphate (Opzelura) 1.5 % cream Indications: Other atopic [...] Refills: 0 Ordered: 22-Jan-2021 DO Active Semaglutide (6 sources) Start: 05-09-2024 inject 1 mg by [...] 2024 12:00am simvastatin 20 mg oral tablet (20 sources) HMG-CoA Reductase Inhibitor Start: 05-09-2024 take [...] 05/07/2023 Active terazosin 10 mg oral capsule (20 sources) alpha-Adrenergic Howie Start: 04-23-2020 take 1 capsule by mouth at bedtime Terazosin 10 mg capsule Active 10 MG PO Bedtime May 09, 2024 1:00am valsartan 40 mg oral tablet (5 sources) Angiotensin 2 Receptor Howie Start: 05-25-2024 take 1 tablet by mouth twice daily Valsartan 40 mg Tablet Active 40 MG PO Twice daily 60 30 May 25, 2024 1:00am vitamin b12 1 [...] Sig (Original) amLODIPine 10 mg oral tablet (20 sources) Dihydropyridine Calcium Channel Howie Start: 01-14-2021 End: 06-15-2024 take 1 tablet by mouth once daily Amlodipine 10 mg tablet Discontinued 10 MG PO Daily May 09, 2024 1:00am May 13, 2024 3:06pm bumetanide 0.5 mg oral tablet (6 sources) Loop Diuretic Start: 05-13-2024 End: 05-27-2024 [...] hours. Active fluconazole 200 mg oral tablet (6 sources) Azole Antifungal Start: 05-09-2024 End: 05-13-2024 take 2 tablets by mouth once daily Fluconazole 200 mg tablet Discontinued 400 MG PO Daily May 09, 2024 1:00am May 13, 2024 3:06pm glipiZIDE 10 mg oral tablet (10 sources) Sulfonylurea Start: 05-09-2024 End: 05-13-2024 take [...] Tablet Discontinued 50 MG PO Twice daily 60 May 12, 2024 1:00am May 27, 2024 1:39pm Start: 03-20-2020 End: 06-15-2024 take 1 tablet by mouth three times daily Hydralazine 50 mg tablet Discontinued 50 MG PO Three times daily May 09, 2024 1:00am May 13, 2024 3:06pm Start: 03-20-2020 take 2 tablets by mo ut three times daily hydrALAZINE HCl - 50 [...] mononitrate 30 mg extended release oral tablet (6 sources) Nitrate Vasodilator Start: 05-12-2024 End: 05-27-2024 take 1 tablet by mouth once daily in the morning, then take 1 tablet by mouth every twenty-four hours Isosorbide Mononitrate 30 mg Tablet Extended Release 24 Hr Discontinued 30 MG PO Every morning 30 May 12, 2024 1:00am May 27, 2024 1:39pm levoFLOXacin 750 mg oral tablet (6 sources) Quinolone Antimicrobial Start: 05-09-2024 End: 05-13-2024 [...] omeprazole 20 mg delayed release oral capsule (20 sources) Proton Pump Inhibitor Start: 01-14-2021 End: 06-15-2024 take 1 capsule by mouth once daily Omeprazole 20 mg capsule,delayed release(DR/EC) Discontinued 20 MG PO Daily May 09, 2024 1:00am May 27, 2024 1:39pm omeprazole OTC ( PriLOSEC OTC) 20 MG EC tablet 1 capsule 1 (one) time each day at the same time. Active predniSONE 10 mg oral tablet (12 sources) Start: 05-26-2024 End: 07-06-2024 Prednisone 10 mg tablet Discontinued 0 MG PO Daily 70 May 26, 2024 1:00am July 06, 2024 12:24pm Take in the morning with food. Please [...] mouth 3 times a day. 4DAYS Active sildenafil 100 mg oral tablet (3 [...] Chronic Chronic obstructive pulmonary disease and bronchiectasis (11 sources) Chronic obstructive pulmonary disease, unspecified; Translations: [Chronic obstructive lung disease] Onset: 06-01-2022 05-20-2024 Chronic Conditions associated with dizziness or vertigo (4 sources) Dizziness and giddiness; Translations: [DIZZINESS AND GIDDINESS] Onset: 05-28-2022 Episodic Conduction disorders (20 sources) Mobitz type II atrioventricular block; Translations: [Mobitz (type) II atrioventricular block] Onset: 02-09-2023 Resolved: 03-01-2024 02-10-2023 Chronic Congestive heart failure; nonhypertensive (20 sources) Congestive heart failure; Translations: [Heart failure, unspecified] Onset: 06-29-2024 05-09-2024 Chronic Coronary atherosclerosis and other heart disease (2 sources) Atherosclerotic heart disease of [place] coronary artery without angina pectoris; Translations: [Old myocardial infarction] Onset: 06-01-2022 Chronic Deficiency and other anemia (1 source) Anemia; Translations: [Anemia, unspecified] 05-20-2024 Episodic Deficiency and other anemia (4 sources) Iron deficiency anemia; Translations: [Iron deficiency anemia, unspecified] 05-25-2024 Episodic Deficiency and other anemia (5 sources) Iron deficiency anemia, unspecified; Translations: [Iron deficiency anemia, unspecified] Onset: 06-29-2024 05-27-2024 Episodic Diabetes mellitus without complication (19 sources) Diabetes mellitus; Translations: [Diabetes mellitus without [...] 06-01-2022 10-11-2022 Chronic Other aftercare (1 source) terminal superintendent (current) use of aspirin; Translations: [SHELTER CURRENT USE OF ASPIRIN] Onset: 06-01-2022 Episodic Other aftercare (1 source) Other chcf (current) drug therapy; Translations: [OTH FURNITURE UPHOLSTERER CURRENT DRUG THERAPY] Onset: 06-01-2022 Episodic Other inflammatory condition of skin (1 source) Psoriasis, unspecified; Translations: [PSORIASIS UNSPECIFIED] Onset: 06-01-2022 Chronic Other inflammatory condition of skin (5 sources) Psoriasis vulgaris; Translations: [Psoriasis vulgaris] Onset: 10-11-2022 10-11-2022 Chronic Other lower respiratory disease (4 sources) Interstitial lung disease; Translations: [Interstitial pulmonary disease, unspecified] 05-21-2024 Chronic Other lower respiratory disease (6 sources) Interstitial pulmonary disease, unspecified; Translations: [Postinflammatory [...] [Hemoptysis] 05-20-2024 Episodic Other lower respiratory disease (5 sources) Other nonspecific abnormal finding of lung [...] and metabolic disorders (4 sources) Hypomagnesemia; Translations: [Hypomagnesemia] 05-20-2024 Chronic Other nutritional; endocrine; and metabolic disorders (5 sources) Hypomagnesemia; Translations: [Disorders of magnesium metabolism] [...] Onset: 02-09-2023 02-10-2023 Chronic Residual codes; unclassified (11 sources) Obstructive sleep apnea syndrome; Translations: [Obstructive sleep apnea (adult) (pediatric)] 12-13-2023 Chronic Residual codes; unclassified (7 sources) Hypersomnia; Translations: [Hypersomnia, unspecified] Onset: 12-13-2023 12-13-2023 Chronic Residual codes; unclassified (7 sources) Periodic limb movement disorder; Translations: [Periodic limb movement disorder] Onset: 12-13-2023 12-13-2023 Chronic Residual codes; unclassified (6 sources) Obstructive sleep apnea (adult) (pediatric); Translations: [Obstructive sleep apnea (adult)(pediatric)] Onset: 05-20-2024 05-27-2024 Chronic Residual codes; unclassified (6 sources) Non-smoker; Translations: [Other specified health status] Onset: 02-10-2023 02-10-2023 Episodic Residual codes; unclassified (4 sources) Urinary catheter in situ; Translations: [Presence of other specified devices] 05-25-2024 Episodic Residual codes; unclassified (2 sources) Lives in a detention; Translations: [Other specified health status] Onset: 06-15-2024 06-15-2024 Episodic Residual codes; unclassified (2 sources) Other specified health status; Translations: [Other specified health status] Onset: 06-15-2024 Episodic Respiratory failure; insufficiency; arrest (adult) (6 sources) Utwvv-th-bolnlvm respiratory failure; Translations: [Acute and chronic respiratory failure with hypoxia] Onset: 05-20-2024 05-20-2024 Chronic Screening and history of mental health and substance abuse codes (6 sources) Ex-smoker; Translations: [Personal history of tobacco use] Onset: 06-01-2022 Episodic Comment on above: quit , 1 PPD; Unclassified (2 sources) Painful Urination Onset: 01-24-2024 Unclassified (9 sources) A [facility] screening has identified you as FRAIL or [...] Four Ways to Beat the Frailty Risk [email or web address] kxl-juo-wspemfrxsd/sta s-qoopim-zozu-ways-to- puac-qme-dmh ilty-risk 05-13-2024 Urinary tract infections (1 source) Acute cystitis with hematuria; Translations: [Acute cystitis with hematuria] Onset: 01-24-2024 Episodic Past or Other Problems Problem Classification Problem Date Documented Date Episodic/Chronic Deficiency and other anemia (5 sources) Anemia, unspecified; Translations: [Anemia, unspecified] Onset: 05-20-2024 05-27-2024 Episodic Other lower respiratory disease (5 sources) Hemoptysis; Translations: [Hemoptysis, unspecified] Onset: 05-20-2024 05-27-2024 Episodic Residual codes; unclassified (5 sources) Presence of other specified devices; Translations: [Other postprocedural status] Onset: 05-20-2024 05-27-2024 Episodic Syncope (9 sources) Syncope; Translations: [Syncope and collapse] Onset: 02-09-2023 02-09-2023 Episodic Unclassified (4 sources) Onset: 02-10-2023 Resolved: 03-01-2024 02-10-2023 Results Test Name Value Interpretation Reference Range Facil ity C Urineon 09-23-2024 Bacteria identified Cx Nom (U) Microbiology PROCEDURE: Urine Culture [R1] SOURCE: U Random BODY SITE: COLLECTED DATE/TIME: 09/20/2024 15:23 EDT RECEIVED DATE/TIME: 09/21/2024 16:53 EDT START DATE/TIME: 09/21/2024 16:54 EDT FREE TEXT SOURCE: Kimberlyn Mims, Kimberlyn Rolon FINAL REPORTS Final Report [] Verified Date/Time: 09/23/2024 07:58 EDT 75,000 cfu/ml Klebsiella pneumoniae ESBL SUSCEPTIBILITY RESULTS __ LEGEND: S=Susceptible, N/R=Not Reported, Blank=Data not available, or drug not advisable or tested, I=Intermediate, ESBL=Extended spectrum beta-lactamase, R=Resistant, TFG=Thymidine-dependen t strain, STALIN=Beta-lactamase positive, HIRAM=mcg/m;(mg/L), S*=Predicted susceptible interp, R*=Predicted resistant interp KlepneESBL Antibiotic HIRAM Dilutn HIRAM Interp Ampicillin >16 R* Ampicillin/ >16/8 R Sulbactam Cefazolin >16 R* Cefepime >16 R* Ceftazidime/ <=8 S Avibactam Ceftriaxone >2 ESBL Cefuroxime >16 R* Ciprofloxacin >2 R Ertapenem <=0.5 S Gentamicin >8 R Levofloxacin >4 R Meropenem <=1 S Nitrofurantoin 64 I Piperacillin/ 16 S Tazobactam Tetracycline 8 I Tobramycin >8 R Trimethoprim/ <=2/38 S Sulfa Performing Locations R1: This test was performed at: [facility], [address] [place] [address], [id number]- , [place], Normal [facility] Comment on above: Performed By: #### [id number] #### [facility] [address] [place] [id number] Urology Office/Clinic Noteon 09-21-2024 Urology Office/Clinic Note Urology Office/Clinic Note Chief Complaint Office visit HPI Staff Office visit. Pt is here today due to possible UTI Previous DX: urinary retention, BPH, cloudy urine, anticoagulated s/p: cysto 05/18/24, urolift 07-24-24 *Finasteride 5mg qd, Sildenafil 100mg PRN yes has pain and burning started Wednesday, denies visible blood History of Present Illness Staff HPI reviewed and agree. Review of Systems PHQ Score Initial Depression Screen Score: 0 SCORE no fever, chills, malaise, myalgia. no rash/lesions. no chest pain, palpitations, or SOB. no abdominal pain, nausea, vomiting. no unilateral calf swelling, redness, pain Physical Exam Vitals & Measurements HR: 72(Peripheral) RR: 18 BP: 120/76 HT: 70 in HT: 177 cm WT: 87 kg WT: 191.802 lb BMI: 27.77 General: nontoxic, well-nourished, appears stated age Mouth: moist mucosa Lungs: normal respiratory effort Cardio: regular rate, good distal perfusion Abdomen: nondistended, no suprapubic distention or tenderness, no CVA tenderness Neurologic: Grossly normal Skin: No rashes or suspicious lesions Assessment/Plan KML pt. 1. Urinary tract infection (N39.0: Urinary tract infection, site not specified) Pt presented to [facility] ER 08/17/24. UCx 08/17/24 - Klebsiella pneumoniae (ESBL) UA today trace-intact blood and large leuks Pt called in today for UTI symptoms including dysuria. Pt states these are the same symptoms he has been having since right after UroLift. [facility] switched to Doxy by Dr. Nugent which patient was taking at prior office visit on 08/24/24. It was discussed if patient continued with symptoms after completion of course we would extend course. Will send 14-day course of Doxy today. Also advised pt to take Azo OTC to help with symptoms. -Extend Doxycycline course to 14-days -Azo OTC for dysuria -Increase fluids, avoid bladder irritants -F/U 1 month to assess symptoms Ordered: doxycycline, 100 mg = 1 cap(s), Oral, BID, X 14 day(s), # 28 cap(s), Refills(s) 0, Pharmacy: [facility] #[id number], 177, cm, 09/20/24 15:16:00 EDT, Height/Length Dosing, 87, kg, 09/20/24 15:16:00 EDT, Weight Dosing E&M of Est. Patient Low 20-29 Min 86674 Urine Culture 2. BPH with urinary obstruction (N40.1: Benign prostatic hyperplasia with lower urinary tract symptoms) S/p Rezum by Dr. Vargas 09/16/16. Lasted over 5 yrs per pt. S/p Cystoscopy, TRUS 01/27/2024 - Moderate to severe bilobar hypertrophy and elevated bladder neck, calculated prostate volume of 57.7 mL (on CT scan, ~ 80 g). S/p Rezum by [facility] 02/14/24 - 9 treatments, R side did not have full cycles due to machine malfunction, therefore repeated. S/p cysto 05/18/24 - The Prostatic Urethra is: Moderate to severe obstruction. No significant Rezum defects noted. The Bladder: Cloudy urine, thicker, difficult to visualize bladder. Unable to visualize. Prior 1 + Trabeculations S/p 6 implant UroLift 07/24/24. Fill and pull 07/31/24. UA today trace-intact blood and large leuks IPSS 26(19) Stream has improved. No longer catheter dependent. Taking Finasteride 5mg qd and Terazosin 10mg qd. Directed pt to stay on Finasteride and to d/c Terazosin at last office visit. Pt reports that he is still taking Terazosin due to bothersome symptoms. -Cont Terazosin for now, reassess at f/u -Cont Finasteride -F/U 1 month Ordered: E&M of Est. Patient Low 20-29 Min 51388 3. Urinary retention (R33.9: Retention of urine, unspecified) Admitted at [facility] x 4 days due to PNA, Gomez removed and discharged 04/08/24. Pt states he presented back to [facility] ER due to UR. Gomez placed, PVR 510 mL. PVR at prior OV was 124ml. Fill and pull 04/25/24. PVR 04/25/24 78 mL. S/p 6 implant UroLift 07/24/24. Fill and pull 07/31/24. UR secondary to MAZA. -See #2 Ordered: E&M of Est. Patient Low 20-29 Min 24738 4. 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 Elevated risk of periop complications in the future. Ordered: E&M of Est. Patient Low 20-29 Min 43664 Follow-up With When Contact Information Deepti Powell PA-C, URL Within 1 month Additional Instructions: w/ PVR Patient Education Urinary Tract Infection, Adult Problem List/Past Medical History Ongoing Anticoagulated Arthritis Aspirin long-term use BPH with urinary obstruction CKD (chronic kidney disease) stage 3, GFR 30-59 ml/min Cloudy urine Diabetes ED (erectile dysfunction) Emphysema/COPD Epidermal cyst ESBL (extended spectrum beta-lactamase) producing bacteria infection Extreme obesity Former smoker Heart disease Hx of migraine headaches Hypercholesteremia Incomplete bladder emptying Kidney stones Myocardial infarct Nocturia Obstructive sleep apnea syndrome Paroxysmal atrial fibrillation Right bundle branch block AND left anterior fascicular block Screening PSA (prostate specific antigen) Seborrheic keratoses SSS (sick sinus syndrome) Urinary retention Urinary (more content not included)... Normal [facility] Comment on above: Result Comment: Elec tronically Signed By: Kimberlyn Mims\.deann\Date and Time Signed: 09/21/24 09:16 EDT Ambulatory Visit Summaryon 0 09-20-2024 Ambulatory Visit Summary Ambulatory Visit Summary RACINIEGALEIGHTON Tyrese :1945 Visit Date:09/20/2024 Ambulatory Visit Instructions Your Diagnosis BPH with urinary obstruction Urinary tract infection Your Care Team Attending Physician - Blanca RODRIGUEZ, Kimberlyn Rolon Primary Care Physician - Lori Nugent MD This Is Your Medications List acetaminophen [...] mcg Tab) cyanocobalamin (cyanocobalamin 1000 mcg Tab) doxycycline (doxycycline hyclate 100 mg Cap) empagliflozin (Jardiance 25 mg oral tablet) finasteride (finasteride 5 mg Tab) furosemide (furosemide 40 mg Tab) glipiZIDE (glipiZIDE 10 mg Tab) hydrALAZINE (hydrALAZINE 50 mg Tab) insulin glargine (Lantus) isosorbide mononitrate multivitamin (Multi Vitamins oral tablet) omeprazole (omeprazole 20 mg Cap-DR) potassium chloride semaglutide (Ozempic (1 mg dose)) sildenafil (sildenafil 100 mg Tab) simvastatin (simvastatin 20 mg Tab) spironolactone (spironolactone 25 mg Tab) tuberculin purified protein derivative (Aplisol 5 TU/0.1 mL Injection) valsartan (valsartan 40 mg Tab) Procedures Performed Cystoscopy (05/18/2024), Pacemaker (08/15/2016), Arthroscopy of knee, Bladder, Colonoscopy, Ring finger Amputation, Tonsillectomy. Discharge Vitals Heart Rate (Peripheral) 72 Respiratory Rate 18 Blood Pressure 120/76 Height 177 cm Height 70 in Weight 87 kg Weight 191.802 lb BMI 27.77 What to do next Scheduled Follow-Up Appointments Wednesday 2:30 PM EDT With: Deepti Powell PA-C Where: [facility] [address] [address] 2024 2:00 PM EDT With: Josep SANDHU, Mica Johns Where: [facility] [place] [address], [address] [place] [address] 2024 1:00 PM EDT With: Where: [facility] Medications What How Much When Why Instructions New doxycycline (doxycycline hyclate 100 mg Cap) 1 Capsules By Mouth 2 times a day Urinary tract infection Duration: 14 Days Pickup at [facility] #[id number] Unchanged acetaminophen (Tylenol Extra Strength 500 mg oral tablet) 2 Tablets By Mouth Every day as needed for for pain Unchanged albuterol (albuterol 0.083% Inh Nasrin 3 [...] mcg Tab) By Mouth Every day Unchanged empagliflozin (Jardiance 25 mg oral tablet) Unchanged finasteride (finasteride 5 mg Tab) 1 Tablets By Mouth Every day Unchanged furosemide (furosemide 40 mg Tab) Unchanged glipiZIDE (glipiZIDE 10 mg Tab) Unchanged hydrALAZINE (hydrALAZINE 50 mg Tab) 2 [...] By Mouth 2 times a day Unchanged tuberculin purified protein derivative (Aplisol 5 TU/ 0.1 mL Injection) Intradermal Once Unchanged valsartan (valsartan 40 mg Tab) Pharmacy Information [facility] #[id number]: [address], [place] [id number] [phone] Allergies Monopril (Dyspnea, Dry cough) Strawberries (rash) Tomatoes (rash) fosinopril (Dyspnea, Dry cough, Shortness of breath) metoprolol (Hypotension) Problems Ongoing - Any problem that you are currently receiving treatment for. Anticoagulated Arthritis Aspirin long-term use BPH with urinary obstruction CKD (chronic (more content not included)... Normal [facility] Ambulatory Visit Summaryon 0 08-24-2024 Ambulatory Visit Summary Ambulatory Visit Summary LEIGHTON ARCINIEGA :1945 Visit Date:08/24/2024 Ambulatory Visit Instructions Your Diagnosis BPH with urinary obstruction Urinary retention Urinary tract infection Anticoagulated Your Care Team Attending Physician - Mica Car MD Primary Care Physician - Lori Nugent MD Referring Physician - Mica Car MD. This Is Your Medications List finasteride (finasteride 5 mg Tab) sildenafil (sildenafil 100 mg Tab) Contact prescribing physician if questions [...] mcg Tab) cyanocobalamin (cyanocobalamin 1000 mcg Tab) empagliflozin (Jardiance 25 mg oral tablet) furosemide (furosemide 40 mg Tab) glipiZIDE (glipiZIDE 10 mg Tab) hydrALAZINE (hydrALAZINE 50 mg Tab) insulin glargine (Lantus) isosorbide mononitrate multivitamin (Multi Vitamins oral tablet) omeprazole (omeprazole 20 mg Cap-DR) potassium chloride semaglutide (Ozempic (1 mg dose)) simvastatin (simvastatin 20 mg Tab) spironolactone (spironolactone 25 mg Tab) tuberculin purified protein derivative (Aplisol 5 TU/0.1 mL Injection) valsartan (valsartan 40 mg Tab) [Image Removed: STOP]Stop taking these medications acetaminophen-hydrocod one (Davis 325 mg-5 mg oral tablet) terazosin (terazosin 10 mg Cap) Procedures Performed Cystoscopy (05/18/2024), Pacemaker (08/15/2016), Arthroscopy of knee, Bladder, Colonoscopy, Ring finger Amputation, Tonsillectomy. Discharge Vitals Heart Rate (Peripheral) 70 Blood Pressure 132/72 Height 177 cm Height 70 in Weight 87 kg Weight 191.802 lb BMI 27.77 What to do next Scheduled Follow-Up Appointments 2024 2:00 PM EDT With: Josep SANDHU, Mica Johns Where: [facility] [address], [address] [place] [address] 2024 1:00 PM EDT With: Where: [facility] You Need to Schedule the Following Appointments Follow Up with Josep SANDHU, Mica Johns, URL, URO When: Where: Medications What How Much When Instructions Unchanged finasteride (finasteride 5 mg Tab) 1 Tablets By Mouth Every day Unchanged sildenafil (sildenafil 100 mg Tab) 1 Tablets By Mouth As Directed as needed for for erectile dysfunction Take one tab 1 hour prior to sexual activity. Unchanged acetaminophen (Tylenol Extra Strength 500 mg [...] Unchanged empagliflozin (Jardiance 25 mg oral tablet) Contact prescribing physician if questions or concerns Unchanged furosemide (furosemide 40 mg Tab) Contact prescribing physician if questions [...] Mouth Every day Contact prescribing physician if q (more content not included)... Normal [facility] Urology Office/Clinic Noteon 08-24-2024 Urology Office/Clinic Note Urology Office/Clinic Note Chief Complaint f.u urolift [facility] Staff 78 year old male presents for 1 month f.u w/ PVR post urolift 07-24-24. Prev dx: urinary retention, BPH, cloudy urine, anticoagulated s/p: cysto 05/18/24, urolift 07-24-24 IPSS: 19 AMANDA: 1 PVR: 42 cc Pt states right after procedure he had extreme burning and weak stream was treated [facility], switched to Doxy by dr nugent. Seen in [facility] last 08-17-24. Pt states he does still have some dysuria but not as bad now. Denies visible blood in urine. Denies abdominal/flank pain. History of Present Illness Tests reviewed: reviewed UA and UCx. I have reviewed the previous health record information and history for this patient from Dr. Car I have reviewed and verified the staff HPI to be accurate for this encounter. There have been no associated fever, chills, flank pain, or blood in the urine. Denies any urinary infections since last encounter. Review of Systems PHQ Score Initial [...] HPI. Physical Exam Vitals & Measurements HR: 70(Peripheral) BP: 132/72 HT: 70 in HT: 177 cm WT: 87 kg WT: 191.802 lb BMI: 27.77 General Appearance: alert, no distress, well nourished, well developed male. Assessment/Plan 78 yo male on O2 therapy here for f/up to UroLift. AMANDA 1 1. BPH with urinary obstruction (N40.1: Benign prostatic hyperplasia with lower urinary tract symptoms) S/p Rezum by Dr. Vargas 09/16/16. Lasted over 5 yrs per pt. S/p Cystoscopy, TRUS 01/27/2024 - Moderate to severe bilobar hypertrophy and elevated bladder neck, calculated prostate volume of 57.7 mL (on CT scan, ~ 80 g). S/p Rezum by [facility] 02/14/24 - 9 treatments, R side did not have full cycles due to machine malfunction, therefore repeated. S/p cysto 05/18/24 - The Prostatic Urethra is: Moderate to severe obstruction. No significant Rezum defects noted. The Bladder: Cloudy urine, thicker, difficult to visualize bladder. Unable to visualize. Prior 1 + Trabeculations S/p 6 implant UroLift 07/24/24. Fill and pull 07/31/24. UA today negative for blood or infection. IPSS 19 (25) Stream has improved. No longer catheter dependent. Currently on ATB for UTI. Taking Finasteride 5mg qd and Terazosin 10mg qd. Directed pt to stay on Finasteride and to d/c Terazosin. -D/c Terazosin, cont Finasteride -F/up in 3 months 2. Urinary retention (R33.9: Retention of urine, unspecified) Admitted at [facility] x 4 days due to PNA, Gomez removed and discharged 04/08/24. Pt states he presented back to [facility] ER due to UR. Gomez placed, PVR 510 mL. PVR at prior OV was 124ml. Fill and pull 04/25/24. PVR 04/25/24 78 mL. Fill and pull 04/25/24. Pt called our office today due to UR, only dribbling. PVR today 531 mL. 16Fr coude gomze placed with 10 cc in balloon. UR secondary to MAZA. -See #1 3. Urinary tract infection (N39.0: Urinary tract infection, site not specified) Pt states right after UroLift he developed severe burning and weak stream. He was treated [facility], switched to Doxy by Dr. Nugent. Pt presented to [facility] ER 08/17/24. UCx 08/17/24 - Klebsiella pneumoniae (ESBL) Pt states he does still have some dysuria but not as bad now. Currently taking Doxycycline. Encouraged pt to complete course. -Complete doxy course, will extend course if symptoms do not full resolve with ATB 4. 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 Elevated risk of periop complications in the future. Follow-up With When Contact Information Josep SANDHU, Mica Johns, URL, URO Additional Instructions: 3 mos Patient Education Urinary Tract Infection, Adult I, Carleen Fierro, personally scribed for Dr. Car on 08/24/2024 11:04:04. . Documentation recorded by the scribeCarleen, accurately reflects the services(s) I performed and decisions made by me. Authenticated by Dr. Car on 08/24/2024 12:27:12. Problem List/Past Medical History Ongoing Anticoagulated Arthritis Aspirin long-term use BPH with urinary obstruction CKD (chronic kidney disease) stage 3, GFR 30-59 ml/min Cloudy urine Diabetes ED (erectile dysfunction) Emphysema/COPD Epidermal cyst ESBL (extended spectrum beta-lactamase) producing bacteria infection Extreme obesity Former smoker Heart disease Hx of migraine headaches Hypercholesteremia Incomplete bladder emptying Kidney stones (more content not included)... Normal [facility] Comment on above: Result Comment: Elec tronically Signed By: Mica Car MD\.br\Date and Time Signed: 08/24/24 12:27 EDT\.br\Electronically Co-Signed By: Carleen Fierro\.br\Date and Time Co-Signed: 08/24/24 11:04 EDT Urine Cultureon 08-17-2024 Bacteria identified Cx Nom (U) ORGANISM: Klebsiella pneumoniae (ESBL) (O:KLEPNEESBL) [place] Count >100,000 Aerobic HIRAM Charge ([id number]) --- SUSCEPTIBILITY -- ORGANISM: O:KLEPNEESBL ANTIBIOTIC INTERPRETATION HIRAM Amikacin S <16 Amoxacillin/K Clavulanate S <8 Ampicillin/Sulbactam I 1616/8 Aztreonam ESBL 16 Cefazolin R* >16 Cefepime R* >16 Ceftazidime ESBL 8 Ceftazidime/Avibactam S <4 Ceftolozane/Tazobactam S <2 Ceftriaxone ESBL >32 Cefuroxime R* >16 Ciprofloxacin R >2 Ertapenem S <0.5 Gentamicin R >8 Levofloxacin R >4 Meropenem S <1 Meropenem/Vaborbactam S <2 Nitrofurantoin I 64 Piperacillin/Tazobacta m S <8 Tetracycline S <4 Tigecycline S <2 Tobramycin I 8 Trimethoprim/Sulfameth oxazole R >2 S = SUSCEPTIBLE I = INTERMEDIATE R = RESISTANT BLANK = DATA NOT AVAILABLE, OR DRUG NOT ADVISABLE OR TESTED R* = RESISTANCE DUE TO EXTENDED SPECTRUM BETA-LACTAMASES ESBL = EXTENDED SPECTRUM BETA-LACTAMASE TFG = THYMIDINE-DEPENDENT STRAIN STALIN = BETA-LACTAMASE POSITIVE IB = INDUCIBLE BETA-LACTAMASE. APPEARS IN PLACE OF 'S' WITH SPECIES KNOWN TO POSSESS INDUCIBLE BETA-LACTAMASES. POTENTIALLY THEY MAY BECOME RESISTANT TO ALL B-LACTAM DRUGS. PERFORMED BY: [facility] [address] [place] [address] PATHOLOGIST MICROBIOLOGICAL LAB TECHNICIAN DK ADAMS M.D. Normal [facility] Comment on above: Performed By: #### G LULS #### Point of Care testing , Inpatient Patient Summaryon 07-24-2024 Inpatient Patient Summary Inpatient Patient Summary [address] [address] Clinical Summary Person Information Name: LEIGHTON ARCINIEGA Age: 78 Years : 1945 Sex: Male PCP: Lori Nugent MD Marital Status: Race: White Ethnicity: Non- or Language: Greenlandic Visit Id: Visit Reason: BPH WITH URINARY OBSTRUCTION Speciality: Acuity: Enc Type: Outpatient Med Service: Surgery Arrival: 07/24/2024 09:40:55 Discharge: Dispo Type: Address: [address] [place] [address] [address] [facility] [id number] Provider Notes: Diagnosis: Anticoagulated; BPH with urinary [...] day as needed for pain. acetaminophen-hydrocod one (Davis 325 mg-5 mg oral tablet) 1 Tablets [...] prior to procedure. 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 Refills: 0. finasteride (finasteride 5 mg Tab) [...] 12/28/2024 1:15 PM Confirmed Patient Education Information: Lue - (more content not included)... Normal [facility] Main OR Intraoperative Recor don 07-24-2024 Main OR Intraoperative Record Main OR Intraoperative Record IntraOp Document Type FTURO Summary Primary Physician: Mica Car MD Finalized Date/Time: 07/24/24 11:00:25 Pt. Name: LEIGHTON ARCINIEGA/Sex: 1945 Male Med Rec #: [id number] Physician: Mica Car MD Financial #: [id number] Pt. Type: O Room/Bed: / Admit/Disch: 07/24/24 09:40:55 - Institution: Case Times FTURO Entry 1 Patient Times In Room 07/24/24 10:38:00 Out Room 07/24/24 10:58:00 Procedure Times Start 07/24/24 10:43:00 Stop 07/24/24 10:53:00 Anesthesia Times Last Modified By: Jocy Corral 07/24/24 11:00:19 Case Attendance FTURO Entry 1 Entry 2 Entry 3 Case Attendee Josep SANDHU, Jocy Perea Kendall R Role Performed Surgeon - Primary Claim Rep - Primary Scrub - Primary Time In [...] CYSTO UROLIFT Primary Procedure Yes Primary Surgeon Josep SANDHU, Mica Johns Start 07/24/24 10:43:00 Stop 07/24/24 10:53:00 Anesthesia [...] Time Out Complete 07/24/24 10:41:00 Participants Jocy Corral Troike, Kendall R Allergies Reviewed? Yes Allergies Reviewed Self/Patient With [...] Implant Implant Identification Description UROLIFT Lot Number [id number] Computational Physicist UROLIFT Catalog ???# [id number] Expiration Date 08/10/25 [...] Signatures Signed By: Jocy Corral 07/24/24 11:00 Normal [facility] Main OR Preoperative Recordo n 07-24-2024 Main OR Preoperative Record Main OR Preoperative Record Holding Area Document Type FTURO Summary Primary Physician: Mica Car MD Finalized Date/Time: 07/24/24 10:42:53 Pt. Name: LEIGHTON ARCINIEGA /Sex: 1945 Male Med Rec #: [id number] Physician: Mica Car MD Financial #: [id number] Pt. Type: O Room/Bed: / Admit/Disch: 07/24/24 [...] Complaints of Pain: No Skin Integrity Intact, Cocoa, Warm, & Dry Vitals - EU Blood Pressure 137/73 Pulse 58 bpm Respirations 18 br/min SPO2 98 % Additional None RN Reviewed Yes Specimens Collected Last Modified By: Jocy Corral 07/24/24 10:42:52 Finalized By: Jocy Corral Document Signatures Signed By: Latha David LPN 07/24/24 10:15 Jocy Corral 07/24/24 10:42 Unfinalized History Date/Time Username Reason for Unfinalizing Freetext Reason for Unfinalizing 07/24/24 10:42 [id number] Adding Additional Data Normal [facility] Operative Reporton Operative Report Operative Report Patient: [...] in 1 month for PVR. . Normal [facility] Comment on above: Result Comment: Elec tronically Signed By: Mica Car MD\.br\Date and Time Signed: 07/24/24 11:02 EDT Outpatient Surgery Discharge Instructionon 07-24-2024 Outpatient Surgery Discharge Instruction Outpatient Surgery Discharge Instruction [address] [address] Patient Discharge Instructions PERSON INFORMATION [...] Comment: PATIENT EDUCATION INFORMATION Instructions: [facility] [place], [place] Post-Operative Instructions for UroLift After your [...] balloon por (more content not included)... Normal [facility] C Urineon 07-20-2024 Bacteria identified Cx Nom (U) Microbiology PROCEDURE: Urine Culture [R1] SOURCE: U Cath BODY SITE: COLLECTED DATE/TIME: 07/17/2024 14:24 EDT RECEIVED DATE/TIME: 07/18/2024 17:37 EDT START DATE/TIME: 07/18/2024 17:37 EDT FREE TEXT SOURCE: MICHAEL Sykes APRN, MICHAEL Sr APRN, Anna Castillo X FINAL REPORTS Final Report [] Verified Date/Time: 07/20/2024 10:40 EDT >100,000 cfu/ml Klebsiella pneumoniae ESBL SUSCEPTIBILITY RESULTS __ LEGEND: S=Susceptible, N/R=Not Reported, Blank=Data not available, or drug not advisable or tested, I=Intermediate, ESBL=Extended spectrum beta-lactamase, R=Resistant, TFG=Thymidine-dependen t strain, STALIN=Beta-lactamase positive, HIRAM=mcg/m;(mg/L), S*=Predicted susceptible interp, R*=Predicted resistant interp KlepneES Antibiotic HIRAM Dilutn HIRAM Interp Ampicillin >16 [...] Locations R1: This test was performed at: [facility], [address] [place] [address], [address] , [place], Normal [facility] Comment on above: Performed By: #### 2 [id number] #### [facility] [address] [place] [address] Performed By: #### 2 [id number] ####[facility] [address] [place] [address] Ambulatory Visit Summaryon 0 07-11-2024 Ambulatory Visit Summary Ambulatory Visit Summary LEIGHTON ARCINIEGA :1945 Visit Date:07/11/2024 Ambulatory Visit Instructions Your Diagnosis Urinary retention Your Care Team Attending Physician - MICHAEL Sr APRN, Anna Herrera Primary Care Physician - Lori Nugent MD This Is Your Medications List acetaminophen (Tylenol Extra Strength 500 mg oral tablet) acetaminophen-hydrocod one (Davis 325 mg-5 mg oral tablet) albuterol (albuterol [...] Surgical Services 2024 1:00 PM EDT Where: [facility] Medications What How Much When Instructions Unchanged acetaminophen (Tylenol Extra Strength 500 mg oral tablet) 2 Tablets By Mouth Every day as needed for for pain Unchanged acetaminophen-hydrocod one (Davis 325 mg-5 mg oral tablet) 1 Tablets [...] prior to procedure. 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 Unchanged finasteride (finasteride 5 mg Tab) 1 [...] urgency Historical (more content not included)... Normal [facility] Anisocytosis LM Ql (Bld)Orde red By: Richard Zamora on 06-29-2024 Anisocytosis Ql (Bld) Anisocytosis [Presence] in Blood by Light microscopy [facility] Basic Metabolic Panelon 06-20 Anion gap [Moles/Vol] 12.9 mmol/L Normal 6.0-15.0 [facility] Comment on above: Performed By: #### B MP ####[facility] [id number] [place] [address] [facility] Calcium [Mass/Vol] 9.6 mg/dL Normal 8.6-10.3 [facility] Comment on above: Result Comment: PERF ORMED BY: [facility] [address] [place] [address] PATHOLOGIST MICROBIOLOGICAL LAB TECHNICIAN DEMOND ESCOBAR M.D. Performed By: #### B MP ####[address] Chloride [Moles/Vol] 98 mmol/L Normal 98-107 [facility] Comment on above: Performed By: #### B MP ####[address] CO2 [Moles/Vol] 29.7 mmol/L Normal 21.0-31.0 [facility] Comment on above: Performed By: #### B MP ####[address] Creatinine [Mass/Vol] 2.06 mg/dL High 0.70-1.30 [facility] Comment on above: Performed By: #### B MP ####[address] Estimated GFR 32.364 mL/Min Normal [facility] Comment on above: Performed By: #### B MP ####[address] Glucose [Mass/Vol] 130 mg/dL High 70-100 [facility] Comment on above: Result Comment: [facility] Glucose Reference Range is dependent on time and content of last meal. Glucose of more than 200 mg/dL in a nonstressed, ambulatory subject supports the diagnosis of Diabetes Mellitus. ADA recommended reference range Performed By: #### B MP ####[address] Potassium [Moles/Vol] 4.6 mmol/L Normal 3.5-5.1 [facility] Comment on above: Performed By: #### B MP ####[address] Sodium [Moles/Vol] 136 mmol/L Normal 136-145 [facility] Comment on above: Performed By: #### B MP ####[address] Urea nitrogen [Mass/Vol] 36 mg/dL High 7-25 [facility] Comment on above: Performed By: #### B ####[facility] [id number] Basophils Auto (Bld) [#/Vol] Ordered By: Richard Zamora on 06-29-2024 Basophils (Bld) [#/Vol] Automated basophil count 0.0-0.2 [facility] Basophils/100 WBC Auto (Bld) Ordered By: Richard Zamora on 06-29-2024 Basophils/100 WBC (Bld) Automated basophil % . [facility] Calcium [Mass/volume] in Ser um or PlasmaOrdered By: Richard Zamora on 06-29-2024 Calcium [Mass/Vol] Calcium [Mass/volume ] in Serum or Plasma 8.6-10.3 [facility] Carbon dioxide, total [Moles /volume] in Serum or PlasmaOrdered By: Richard Zamora on 06-29-2024 CO2 [Moles/Vol] Carbon dioxide, tota l [Moles/volume] in Serum or Plasma 21.0-31.0 [facility] Chloride [Moles/volume] in S chelo or PlasmaOrdered By: Richard Zamora on 06-29-2024 Chloride [Moles/Vol] Chloride [Moles/volume] in Serum or Plasma 98-107 [facility] Creatinine [Mass/volume] in Serum or PlasmaOrdered By: Richard Zamora on 06-29-2024 Creatinine [Mass/Vol] Creatinine [Mass/volume] in Serum or Plasma High 0.70-1.30 [facility] Eosinophils Auto (Bld) [#/Vo l]Ordered By: Richard Zamora on 06-29-2024 Eosinophils (Bld) [#/Vol] Automated eosinophil count 0.0-0.45 [facility] Eosinophils/100 WBC Auto (Bl d)Ordered By: Richard Zamora on 06-29-2024 Eosinophils/100 WBC (Bld) Automated eosinophil % . [facility] Erythrocyte distribution wid th Auto (RBC) [Ratio]Ordered By: Richard Zamora on 06-29-2024 Erythrocyte distribution width (RBC) [Ratio] Erythrocyte distribution width [Ratio] by Automated count High 12.0-14.8 [facility] Erythrocyte morphology findi ng [Identifier] in BloodOrdered By: Richard Zamora on 06-29-2024 RBC morphology finding Nom (Bld) RBC morphology [facility] Glucose [Mass/volume] in Ser um or PlasmaOrdered By: Richard Zamora on 06-29-2024 Glucose [Mass/Vol] Glucose [Mass/volume ] in Serum or Plasma High 70-100 [facility] Comment on above: ADA recommended refe rence rangeRandom Glucose Reference Range is dependent on time and content of last meal. Glucose of more than 200 mg/dL in a nonstressed, ambulatory subject supports the diagnosis of Diabetes Mellitus. Hematocrit Auto (Bld) [Volum e fraction]Ordered By: Richard Zamora on 06-29-2024 Hematocrit (Bld) [Volume fraction] Hematocrit [Volume Fraction] of Blood by Automated count Low 38.8-50.0 [facility] Hemoglobin [Mass/volume] in BloodOrdered By: Richard Zamora on 06-29-2024 Hemoglobin (Bld) [Mass/Vol] Hemoglobin [Mass/volume] in Blood Low 13.0-17.0 [facility] Hypochromia LM Ql (Bld)Order ed By: Richard Zamora on 06-29-2024 Hypochromia Ql (Bld) Hypochromia [Presen ce] in Blood by Light microscopy [facility] Leukocytes [#/volume] correc gabrielle for nucleated erythrocytes in Blood by Automated counOrdered By: Richard Zamora on 06-29-2024 WBC corrected for nucl RBC Auto (Bld) [#/Vol] Leukocytes [#/volume] corrected for nucleated erythrocytes in Blood by Automated coun 4.1-10.5 [facility] Lymphocytes Auto (Bld) [#/Vo l]Ordered By: Richard Zamora on 06-29-2024 Lymphocytes (Bld) [#/Vol] Lymphocytes [#/volume] in Blood by Automated count 1.00-4.8 [facility] Lymphocytes/100 WBC Auto (Bl d)Ordered By: Richard Zamora on 06-29-2024 Lymphocytes/100 WBC (Bld) Lymphocytes/100 leukocytes in Blood by Automated count . [facility] MCH Auto (RBC) [Entitic mass ]Ordered By: Richard Zamora on 06-29-2024 MCH (RBC) [Entitic mass] MCH [Entitic mass] by Automated count 27.5-35.2 [facility] MCHC Auto (RBC) [Mass/Vol]Or dered By: Richard Zamora on 06-29-2024 MCHC (RBC) [Mass/Vol] MCHC [Mass/volume] by Automated count 32.5-35.6 [facility] MCV Auto (RBC) [Entitic vol] Ordered By: Richard Zamora on 06-29-2024 MCV (RBC) [Entitic vol] MCV [Entitic volume] by Automated count 83.5-101 [facility] Microcytes LM Ql (Bld)Ordere d By: Richard Zamora on 06-29-2024 Microcytes Ql (Bld) Microcytes [Presence ] in Blood by Light microscopy [facility] Monocytes Auto (Bld) [#/Vol] Ordered By: Richard Zamora on 06-29-2024 Monocytes (Bld) [#/Vol] Automated blood monocyte count High 0.0-0.8 [facility] Monocytes/100 WBC Auto (Bld) Ordered By: Richard Zamora on 06-29-2024 Monocytes/100 WBC (Bld) Automated monocyte % . [facility] Neutrophils Auto (Bld) [#/Vo l]Ordered By: Richard Zamora on 06-29-2024 Neutrophils (Bld) [#/Vol] Neutrophils [#/volume] in Blood by Automated count 1.8-7.7 [facility] Neutrophils/100 WBC Auto (Bl d)Ordered By: Richard Zamora on 06-29-2024 Neutrophils/100 WBC (Bld) Automated neutrophil % . [facility] No Panel InformationOrdered By: Richard Zamora on 06-29-2024 Estimated GFR (CKD-EPI) 32.364 mL/Min [facility] Pharmacy Creatinine Clearance (Chem N/A [facility] Nucleated erythrocytes [Pres ence] in Blood by Automated countOrdered By: Richard Zamora on 06-29-2024 Nucleated RBC Auto Ql (Bld) Nucleated erythrocytes [Presence] in Blood by Automated count 0-0.5 [facility] Platelet adequacy [Presence] in Blood by Light microscopyOrdered By: Richard Zamora on 06-29-2024 Platelets LM Ql (Bld) Platelet adequacy [Presence] in Blood by Light microscopy Normal [facility] Platelet mean volume Auto (B ld) [Entitic vol]Ordered By: Richard Zamora on 06-29-2024 Platelet mean volume (Bld) [Entitic vol] Platelet mean volume [Entitic volume] in Blood by Automated count Low 6.6-10.1 [facility] Platelet morphology finding [Identifier] in BloodOrdered By: Richard Zamora on 06-29-2024 Platelet morphology finding Nom (Bld) Platelet morphology finding [Identifier] in Blood Normal [facility] Platelets Auto (Bld) [#/Vol] Ordered By: Richard Zamora on 06-29-2024 Platelets (Bld) [#/Vol] Platelets [#/volume] in Blood by Automated count 150-450 [facility] Polychromasia [Presence] in Blood by Light microscopyOrdered By: Richard Zamora on 06-29-2024 Polychromasia LM Ql (Bld) Polychromasia [Presence] in Blood by Light microscopy [facility] Potassium [Moles/volume] in Serum or PlasmaOrdered By: Richard Zamora on 06-29-2024 Potassium [Moles/Vol] Potassium [Moles/volume] in Serum or Plasma 3.5-5.1 [facility] RBC Auto (Bld) [#/Vol]Ordere d By: Richard Zamora on 04-10-2025 RBC (Bld) [#/Vol] Erythrocytes [#/volume] in Blood by Automated count Low 3.90-5.60 [facility] Scan and CBCon 06-29-2024 Anisocytosis Ql (Bld) Moderate Normal [facility] Comment on above: Performed By: #### G LULS #### Point of Care testing , Basophils (Bld) [#/Vol] 0.1 10*3/uL Normal 0.0-0.2 [facility] Comment on above: Performed By: #### G LULS #### Point of Care testing , Basophils/100 WBC (Bld) 0.6 % Normal . [facility] Comment on above: Performed By: #### G LULS #### Point of Care testing , Eosinophils (Bld) [#/Vol] 0.1 10*3/uL Normal 0.0-0.45 [facility] Comment on above: Performed By: #### G LULS #### Point of Care testing , Eosinophils/100 WBC (Bld) 0.6 % Normal . [facility] Comment on above: Performed By: #### G LULS #### Point of Care testing , Erythrocyte distribution width (RBC) [Ratio] 17.4 % High 12.0-14.8 [facility] Comment on above: Performed By: #### G LULS #### Point of Care testing , Hematocrit (Bld) [Volume fraction] 31.0 % Low 38.8-50.0 [facility] Comment on above: Performed By: #### G LULS #### Point of Care testing , Hemoglobin (Bld) [Mass/Vol] 10.6 g/dL Low 13.0-17.0 [facility] Comment on above: Performed By: #### G LULS #### Point of Care testing , Hypochromasia Slight Normal [facility] Comment on above: Performed By: #### G LULS #### Point of Care testing , Lymphocytes (Bld) [#/Vol] 1.4 10*3/uL Normal 1.00-4.8 [facility] Comment on above: Performed By: #### G LULS #### Point of Care testing , Lymphocytes/100 WBC (Bld) 15.0 % Normal . [facility] Comment on above: Performed By: #### G LULS #### Point of Care testing , MCH (RBC) [Entitic mass] 32.1 pg Normal 27.5-35.2 [facility] Comment on above: Performed By: #### G LULS #### Point of Care testing , MCV (RBC) [Entitic vol] 93.8 fL Normal 83.5-101 [facility] Comment on above: Performed By: #### G LULS #### Point of Care testing , Mean Corpuscular HGB Conc 34.2 g/dL Normal 32.5-35.6 [facility] Comment on above: Performed By: #### G LULS #### Point of Care testing , Microcytosis Slight Normal [facility] Comment on above: Performed By: #### G LULS #### Point of Care testing , Monocytes (Bld) [#/Vol] 1.1 10*3/uL High 0.0-0.8 [facility] Comment on above: Performed By: #### G LULS #### Point of Care testing , Monocytes/100 WBC (Bld) 11.8 % Normal . [facility] Comment on above: Performed By: #### G LULS #### Point of Care testing , Neutrophils (Bld) [#/Vol] 7.0 10*3/uL Normal 1.8-7.7 [facility] Comment on above: Performed By: #### G LULS #### Point of Care testing , Neutrophils/100 WBC (Bld) 72.0 % Normal . [facility] Comment on above: Performed By: #### G LULS #### Point of Care testing , NRBC% 0.1 /100{WBC} Normal 0-0.5 [facility] Comment on above: Performed By: #### G LULS #### Point of Care testing , Platelet Estimate Normal Normal Normal [facility] Comment on above: Performed By: #### G LULS #### Point of Care testing , Platelet mean volume (Bld) [Entitic vol] 6.5 fL Low 6.6-10.1 [facility] Comment on above: Performed By: #### G LULS #### Point of Care testing , Platelet Morphology Normal Normal Normal [facility] Comment on above: Result Comment: PERF ORMED BY: [facility] [place] [address] PATHOLOGIST MICROBIOLOGICAL LAB TECHNICIAN DEMOND ESCOBAR M.D. Performed By: #### G LULS #### Point of Care testing , Platelets (Bld) [#/Vol] 225 10*3/uL Normal 150-450 [facility] Comment on above: Performed By: #### G LULS #### Point of Care testing , Polychromasia Slight Normal [facility] Comment on above: Performed By: #### G LULS #### Point of Care testing , RBC (Bld) [#/Vol] 3.30 10*6/uL Low 3.90-5.60 [facility] Comment on above: Performed By: #### G LULS #### Point of Care testing , WBC (Bld) [#/Vol] 9.7 10*3/uL Normal 4.1-10.5 [facility] Comment on above: Performed By: #### G LULS #### Point of Care testing , Serum or plasma anion gap de terminationOrdered By: Richard Zamora on 06-29-2024 Anion gap [Moles/Vol] Serum or plasma an ion gap determination 6.0-15.0 [facility] Sodium [Moles/volume] in Ser um or PlasmaOrdered By: Richard Zamora on 06-29-2024 Sodium [Moles/Vol] Sodium [Moles/volume ] in Serum or Plasma 136-145 [facility] Urea nitrogen [Mass/volume] in Serum or PlasmaOrdered By: Richard Zamora on 06-29-2024 Urea nitrogen [Mass/Vol] Urea nitrogen [Mass/volume] in Serum or Plasma High 7-25 [facility] WBC Auto (Bld) [#/Vol]Ordere d By: Richard Zamora on 06-29-2024 WBC (Bld) [#/Vol] Leukocytes [#/volume ] in Blood by Automated count 4.1-10.5 [facility] X-ray reportOrdered By: Simone Chakraborty on 06-29-2024 Study report [place] [address] XRay Report Signed Patient: Leighton Arciniega MR#: [id number] : 1945 Acct:[id number] Age/Sex: 78 / M ADM Date: 5 Loc: XD Room: Type: [facility] Attending Dr: Richard Zamora DO [...] may represent chronic finding. Impression dictated by: Bentno Chakraborty M.D.06/29/2024 4:32 PM Dictation Location: [place] [address] Transcribed By: [facility] 06/29/24 1632 Dictated By: Benton Chakraborty DO 06/29/24 1630 Signed By: 06/29/24 1632 [facility] XR chest 2V*on 06-29-2024 XR chest 2V* [facility] [address] [address] XRay Report Signed Patient: Leighton Arciniega MR#: [id number] : 1945 Acct:[id number] Age/Sex: 78 / M ADM Date: 06/29/24 Loc: XD Room: Type: [facility] Attending Dr: Richard Zamora DO [...] Benton Chakraborty M.D.06/29/2024 4:32 PM Dictation Location: [facility]-- Transcribed By: [facility] 06/29/24 1632 Dictated By: Benton Chakraborty DO 06/29/24 1630 Signed By: 06/29/24 1632 Normal [facility] Ascorbic acid measurementOrd ered By: Richard Zamora on 05-27-2024 Vitamin C level 0.6 mg/dL 0.4-2.0 [facility] Comment on above: This test was develo ped and its performance characteristicsdetermined by [facility]. It has not been cleared orapproved by the Food and Drug Administration.Vitamin C deficiency is generally defined as plasmaconcentrations less than 0.2 mg/dL and levels between0.2 and 0.4 mg/dL are considered low.Performed at: [facility] [id number] Director: Lyndsay Lawson MD, Phone: [phone] Glucose Glucometer (dC) [M ass/Vol]Ordered By: Richard Zamora on 05-27-2024 Glucose [Mass/Vol] Capillary blood glucose measurement by glucometer (mass/volume) [facility] Comment on above: Random Glucose Refer ence Range is dependent on time and content of last meal. Glucose of more than 200 mg/dL in a nonstressed, ambulatory subject supports the diagnosis of Diabetes Mellitus. Glucose [Mass/Vol] Capillary blood glucose measurement by glucometer (mass/volume) [facility] Comment on above: Random Glucose Refer ence Range is dependent on time and content of last meal. Glucose of more than 200 mg/dL in a nonstressed, ambulatory subject supports the diagnosis of Diabetes Mellitus. Glucose Poct Glucometerson 0 05-27-2024 Commemt1 Glu2: Cleaned Meter Normal [facility] Comment on above: Result Comment: PERF ORMED BY: [address] [place] [address] PATHOLOGIST MICROBIOLOGICAL LAB TECHNICIAN DEMOND ESCOBAR M.D. Performed By: #### G LULS ####Point of Care testing, Glucose [Mass/Vol] 202 mg/dL Normal [facility] Comment on above: Result Comment: [place] Glucose Reference Range is dependent on time and content of last meal. Glucose of more than 200 mg/dL in a nonstressed, ambulatory subject supports the diagnosis of Diabetes Mellitus. Performed By: #### G LULS ####Point of Care testing, Glucose [Mass/Vol] 82 mg/dL Normal [facility] Comment on above: Result Comment: [place] Glucose Reference Range is dependent on time and content of last meal. Glucose of more than 200 mg/dL in a nonstressed, ambulatory subject supports the diagnosis of Diabetes Mellitus. PERFORMED BY: [address] [place] [place] [address] PATHOLOGIST MICROBIOLOGICAL LAB TECHNICIAN DEMOND ESCOBAR M.D. Performed By: #### G LULS #### Point of Care testing , Magnesiumon 05-27-2024 Magnesium [Mass/Vol] 1.6 mg/dL Low 1.9-2.7 [facility] Comment on above: Result Comment: PERF ORMED BY: [facility] [address] [place] [address] PATHOLOGIST MICROBIOLOGICAL LAB TECHNICIAN DEMOND ESCOBAR M.D. Performed By: #### G LULS #### Point of Care testing , Magnesium [Mass/volume] in S chelo or PlasmaOrdered By: Richard Zamora on 05-27-2024 Magnesium [Mass/Vol] Magnesium [Mass/volume] in Serum or Plasma Low 1.9-2.7 [facility] No Panel InformationOrdered By: Richard Zamora on 05-27-2024 Bedside Glucose Comment Glu2: cleaned meter [facility] Vitamin Con 05-27-2024 Vitamin C 0.6 mg/dL Normal 0.4-2.0 [facility] Comment on above: Result Comment: This test was developed and its performance characteristics determined by [facility]. It has not been cleared or approved by the Food and Drug Administration. Vitamin C deficiency is generally defined as plasma concentrations less than 0.2 mg/dL and levels between 0.2 and 0.4 mg/dL are considered low. Performed at: [address] [id number] Apprentice Plumber: Lyndsay Lawson MD, Phone: [phone] PERFORMED BY: [facility] [address] [address] PATHOLOGIST MICROBIOLOGICAL LAB TECHNICIAN DEMOND ESCOBAR M.D. Performed By: #### G LULS #### Point of Care testing , Anisocytosis LM Ql (Bld)Orde red By: Richard Zamora on 05-26-2024 Anisocytosis Ql (Bld) Anisocytosis [Presence] in Blood by Light microscopy [facility] Band form neutrophils/100 WB C Manual cnt (Bld)Ordered By: Richard Zamora on 05-26-2024 Band form neutrophils/100 WBC (Bld) Peripheral white blood cell differential % bands, microscopic exam 0-5 [facility] Basic Metabolic Panelon Anion gap [Moles/Vol] 9.9 mmol/L Normal 6.0-15.0 [facility] Comment on above: Performed By: #### G LULS #### Point of Care testing , Calcium [Mass/Vol] 8.3 mg/dL Low 8.6-10.3 [facility] Comment on above: Performed By: #### G LULS #### Point of Care testing , Chloride [Moles/Vol] 103 mmol/L Normal 98-107 [facility] Comment on above: Performed By: #### G LULS #### Point of Care testing , CO2 [Moles/Vol] 30.0 mmol/L Normal 21.0-31.0 [facility] Comment on above: Performed By: #### G LULS #### Point of Care testing , Creatinine [Mass/Vol] 1.44 mg/dL High 0.70-1.30 [facility] Comment on above: Performed By: #### G LULS #### Point of Care testing , Creatinine Clr Calc Pharmacy 43.65 Normal [facility] Comment on above: Result Comment: PERF ORMED BY: [facility] [address] [place] [address] PATHOLOGIST MICROBIOLOGICAL LAB TECHNICIAN DEMOND ESCOBAR M.D. Performed By: #### G LULS #### Point of Care testing , Estimated GFR 49.736 mL/Min Normal [facility] Comment on above: Performed By: #### G LULS #### Point of Care testing , Glucose [Mass/Vol] 108 mg/dL High 70-100 [facility] Comment on above: Result Comment: [place] Glucose Reference Range is dependent on time and content of last meal. Glucose of more than 200 mg/dL in a nonstressed, ambulatory subject supports the diagnosis of Diabetes Mellitus. ADA recommended reference range Performed By: #### G LULS #### Point of Care testing , Potassium [Moles/Vol] 3.9 mmol/L Normal 3.5-5.1 [facility] Comment on above: Performed By: #### G LULS #### Point of Care testing , Sodium [Moles/Vol] 139 mmol/L Normal 136-145 [facility] Comment on above: Performed By: #### G LULS #### Point of Care testing , Urea nitrogen [Mass/Vol] 68 mg/dL High 7-25 [facility] Comment on above: Performed By: #### G LULS #### Point of Care testing , Basophils Auto (Bld) [#/Vol] Ordered By: Richard Zamora on 05-26-2024 Basophils (Bld) [#/Vol] Automated basophil count [facility] Basophils/100 WBC Auto (Bld) Ordered By: Richard Zamora on 05-26-2024 Basophils/100 WBC (Bld) Automated basophil % [facility] Calcium [Mass/volume] in Ser um or PlasmaOrdered By: Richard Zamora on 05-26-2024 Calcium [Mass/Vol] Calcium [Mass/volume ] in Serum or Plasma Low 8.6-10.3 [facility] Carbon dioxide, total [Moles /volume] in Serum or PlasmaOrdered By: Richard Zamora on 05-26-2024 CO2 [Moles/Vol] Carbon dioxide, tota l [Moles/volume] in Serum or Plasma 21.0-31.0 [facility] Chloride [Moles/volume] in S chelo or PlasmaOrdered By: Richard Zamora on 05-26-2024 Chloride [Moles/Vol] Chloride [Moles/volume] in Serum or Plasma 98-107 [facility] Creatinine [Mass/volume] in Serum or PlasmaOrdered By: Richard Zamora on 05-26-2024 Creatinine [Mass/Vol] Creatinine [Mass/volume] in Serum or Plasma High 0.70-1.30 [facility] Diff and CBCon 05-26-2024 Anisocytosis Ql (Bld) Slight Normal [facility] Comment on above: Performed By: #### G LULS #### Point of Care testing , Band form neutrophils/100 WBC (Bld) 1 % Normal 0-5 [facility] Comment on above: Performed By: #### G LULS #### Point of Care testing , Erythrocyte distribution width (RBC) [Ratio] 16.4 % High 12.0-14.8 [facility] Comment on above: Performed By: #### G LULS #### Point of Care testing , Hematocrit (Bld) [Volume fraction] 25.8 % Low 38.8-50.0 [facility] Comment on above: Performed By: #### G LULS #### Point of Care testing , Hemoglobin (Bld) [Mass/Vol] 8.8 g/dL Low 13.0-17.0 [facility] Comment on above: Performed By: #### G LULS #### Point of Care testing , Lymphocytes/100 WBC (Bld) 7 % Low 18-42 [facility] Comment on above: Performed By: #### G LULS #### Point of Care testing , MCH (RBC) [Entitic mass] 31.8 pg Normal 27.5-35.2 [facility] Comment on above: Performed By: #### G LULS #### Point of Care testing , MCV (RBC) [Entitic vol] 93.2 fL Normal 83.5-101 [facility] Comment on above: Performed By: #### G LULS #### Point of Care testing , Mean Corpuscular HGB Conc 34.1 g/dL Normal 32.5-35.6 [facility] Comment on above: Performed By: #### G LULS #### Point of Care testing , Metamyelocytes 6 % High 0-0 [facility] Comment on above: Performed By: #### G LULS #### Point of Care testing , Monocytes/100 WBC (Bld) 6 % Normal 2-11 [facility] Comment on above: Performed By: #### G LULS #### Point of Care testing , Myelocytes 5 % High 0-0 [facility] Comment on above: Performed By: #### G LULS #### Point of Care testing , Platelet Estimate Normal Normal Normal [facility] Comment on above: Performed By: #### G LULS #### Point of Care testing , Platelet mean volume (Bld) [Entitic vol] 6.5 fL Low 6.6-10.1 [facility] Comment on above: Performed By: #### G LULS #### Point of Care testing , Platelet Morphology Normal Normal Normal [facility] Comment on above: Result Comment: PERF ORMED BY: [facility] [address] [address] PATHOLOGIST MICROBIOLOGICAL LAB TECHNICIAN DEMOND ESCOBAR M.D. Performed By: #### G LULS #### Point of Care testing , Platelets (Bld) [#/Vol] 374 10*3/uL Normal 150-450 [facility] Comment on above: Performed By: #### G LULS #### Point of Care testing , RBC (Bld) [#/Vol] 2.76 10*6/uL Low 3.90-5.60 [facility] Comment on above: Performed By: #### G LULS #### Point of Care testing , Segmented neutrophils/100 WBC (Bld) 77 % High 50-70 [facility] Comment on above: Performed By: #### G LULS #### Point of Care testing , WBC (Bld) [#/Vol] 9.4 10*3/uL Normal 4.1-10.5 [facility] [facility] Comment on above: Performed By: #### G LULS #### Point of Care testing , Eosinophils Auto (Bld) [#/Vo l]Ordered By: Richard Zamora on 05-26-2024 Eosinophils (Bld) [#/Vol] Automated eosinophil count [facility] Eosinophils/100 WBC Auto (Bl d)Ordered By: Richard Zamora on 05-26-2024 Eosinophils/100 WBC (Bld) Automated eosinophil % [facility] Erythrocyte distribution wid th Auto (RBC) [Ratio]Ordered By: Richard Zamora on 05-26-2024 Erythrocyte distribution width (RBC) [Ratio] Erythrocyte distribution width [Ratio] by Automated count High 12.0-14.8 [facility] Erythrocyte morphology findi ng [Identifier] in BloodOrdered By: Richard Zamora on 05-26-2024 RBC morphology finding Nom (Bld) RBC morphology [facility] Glucose Poct Glucometerson 0 05-26-2024 Glucose [Mass/Vol] 164 mg/dL Normal [facility] Comment on above: Result Comment: [place] Glucose Reference Range is dependent on time and content of last meal. Glucose of more than 200 mg/dL in a nonstressed, ambulatory subject supports the diagnosis of Diabetes Mellitus. PERFORMED BY: [address] [address] PATHOLOGIST MICROBIOLOGICAL LAB TECHNICIAN DEMOND ESCOBAR M.D. Performed By: #### G LULS ####Point of Care testing, Glucose [Mass/Vol] 289 mg/dL Normal [facility] Comment on above: Result Comment: [place] om Glucose Reference Range is dependent on time and content of last meal. Glucose of more than 200 mg/dL in a nonstressed, ambulatory subject supports the diagnosis of Diabetes Mellitus. PERFORMED BY: [address] [address] PATHOLOGIST MICROBIOLOGICAL LAB TECHNICIAN DEMOND ESCOBAR M.D. Performed By: #### G LULS #### Point of Care testing , Glucose [Mass/Vol] 210 mg/dL Normal [facility] Comment on above: Result Comment: [place] Glucose Reference Range is dependent on time and content of last meal. Glucose of more than 200 mg/dL in a nonstressed, ambulatory subject supports the diagnosis of Diabetes Mellitus. PERFORMED BY: [address] [address] PATHOLOGIST MICROBIOLOGICAL LAB TECHNICIAN DEMOND ESCOBAR M.D. Performed By: #### G LULS #### Point of Care testing , Commemt1 Glu2: Cleaned Meter Normal [facility] Comment on above: Result Comment: PERF ORMED BY: [address] [place] [address] PATHOLOGIST MICROBIOLOGICAL LAB TECHNICIAN DEMOND ESCOBAR M.D. Performed By: #### G LULS ####Point of Care testing, Glucose [Mass/Vol] 120 mg/dL Normal [facility] Comment on above: Result Comment: [place] om Glucose Reference Range is dependent on time and content of last meal. Glucose of more than 200 mg/dL in a nonstressed, ambulatory subject supports the diagnosis of Diabetes Mellitus. Performed By: #### G LULS ####Point of Care testing, Glucose [Mass/volume] in Ser um or PlasmaOrdered By: Richard Zamora on 05-26-2024 Glucose [Mass/Vol] Glucose [Mass/volume ] in Serum or Plasma High 70-100 [facility] Comment on above: ADA recommended refe rence rangeRandom Glucose Reference Range is dependent on time and content of last meal. Glucose of more than 200 mg/dL in a nonstressed, ambulatory subject supports the diagnosis of Diabetes Mellitus. Hematocrit Auto (Bld) [Volum e fraction]Ordered By: Richard Zamora on 05-26-2024 Hematocrit (Bld) [Volume fraction] Hematocrit [Volume Fraction] of Blood by Automated count Low 38.8-50.0 [facility] Hemoglobin [Mass/volume] in BloodOrdered By: Richard Zamora on 05-26-2024 Hemoglobin (Bld) [Mass/Vol] Hemoglobin [Mass/volume] in Blood Low 13.0-17.0 [facility] Leukocytes [#/volume] correc gabrielle for nucleated erythrocytes in Blood by Automated counOrdered By: Richard Zamora on 05-26-2024 WBC corrected for nucl RBC Auto (Bld) [#/Vol] Leukocytes [#/volume] corrected for nucleated erythrocytes in Blood by Automated coun 4.1-10.5 [facility] Lymphocytes Auto (Bld) [#/Vo l]Ordered By: Richard Zamora on 05-26-2024 Lymphocytes (Bld) [#/Vol] Lymphocytes [#/volume] in Blood by Automated count [facility] Lymphocytes/100 WBC Auto (Bl d)Ordered By: Richard Zamora on 05-26-2024 Lymphocytes/100 WBC (Bld) Lymphocytes/100 leukocytes in Blood by Automated count [facility] Lymphocytes/100 WBC Manual c nt (Bld)Ordered By: Richard Zamora on 05-26-2024 Lymphocytes/100 WBC (Bld) Lymphocytes/100 leukocytes in Blood by Manual count Low 18-42 [facility] MCH Auto (RBC) [Entitic mass ]Ordered By: Richard Zamora on 05-26-2024 MCH (RBC) [Entitic mass] MCH [Entitic mass] by Automated count 27.5-35.2 [facility] MCHC Auto (RBC) [Mass/Vol]Or dered By: Richard Zamora on 05-26-2024 MCHC (RBC) [Mass/Vol] MCHC [Mass/volume] by Automated count 32.5-35.6 [facility] MCV Auto (RBC) [Entitic vol] Ordered By: Richard Zamora on 05-26-2024 MCV (RBC) [Entitic vol] MCV [Entitic volume] by Automated count 83.5-101 [facility] Metamyelocytes/100 WBC Manua l cnt (Bld)Ordered By: Richard Zaomra on 05-26-2024 Metamyelocytes/100 WBC (Bld) Metamyelocytes/100 leukocytes in Blood by Manual count High 0-0 [facility] Monocytes Auto (Bld) [#/Vol] Ordered By: Richard Zamora on 05-26-2024 Monocytes (Bld) [#/Vol] Automated blood monocyte count [facility] Monocytes/100 WBC Auto (Bld) Ordered By: Richard Zamora on 05-26-2024 Monocytes/100 WBC (Bld) Automated monocyte % [facility] Monocytes/100 WBC Manual cnt (Bld)Ordered By: Richard Zamora on 05-26-2024 Monocytes/100 WBC (Bld) Monocytes/100 leukocytes in Blood by Manual count 2-11 [facility] Myelocytes/100 WBC Manual cn t (Bld)Ordered By: Richard Zamora on 05-26-2024 Myelocytes/100 WBC (Bld) Myelocytes/100 leukocytes in Blood by Manual count High 0-0 [facility] Neutrophils Auto (Bld) [#/Vo l]Ordered By: Richard Zamora on 05-26-2024 Neutrophils (Bld) [#/Vol] Neutrophils [#/volume] in Blood by Automated count [facility] Neutrophils/100 WBC Auto (Bl d)Ordered By: Richard Zamora on 05-26-2024 Neutrophils/100 WBC (Bld) Automated neutrophil % [facility] No Panel InformationOrdered By: Richard Zamora on 05-26-2024 Bedside Glucose Comment Glu2: cleaned meter [facility] Estimated GFR (CKD-EPI) 49.736 mL/Min [facility] Pharmacy Creatinine Clearance (Chem 43.65 [facility] Nucleated erythrocytes [Pres ence] in Blood by Automated countOrdered By: Richard Zamora on 05-26-2024 Nucleated RBC Auto Ql (Bld) Nucleated erythrocytes [Presence] in Blood by Automated count [facility] Platelet adequacy [Presence] in Blood by Light microscopyOrdered By: Richard Zamora on 05-26-2024 Platelets LM Ql (Bld) Platelet adequacy [Presence] in Blood by Light microscopy Normal [facility] Platelet mean volume Auto (B ld) [Entitic vol]Ordered By: Richard Zamora on 05-26-2024 Platelet mean volume (Bld) [Entitic vol] Platelet mean volume [Entitic volume] in Blood by Automated count Low 6.6-10.1 [facility] Platelet morphology finding [Identifier] in BloodOrdered By: Richard Zamora on 05-26-2024 Platelet morphology finding Nom (Bld) Platelet morphology finding [Identifier] in Blood Normal [facility] Platelets Auto (Bld) [#/Vol] Ordered By: Richard Zamora on 05-26-2024 Platelets (Bld) [#/Vol] Platelets [#/volume] in Blood by Automated count 150-450 [facility] Potassium [Moles/volume] in Serum or PlasmaOrdered By: Richard Zamora on 05-26-2024 Potassium [Moles/Vol] Potassium [Moles/volume] in Serum or Plasma 3.5-5.1 [facility] RBC Auto (Bld) [#/Vol]Ordere d By: Richard Zamora on 05-26-2024 RBC (Bld) [#/Vol] Erythrocytes [#/volume] in Blood by Automated count Low 3.90-5.60 [facility] Segmented neutrophils/100 WB C Manual cnt (Bld)Ordered By: Richard Zamora on 05-26-2024 Segmented neutrophils/100 WBC (Bld) Manual blood segmented neutrophils/100 leukocytes High 50-70 [facility] Serum or plasma anion gap de terminationOrdered By: Richard Zamora on 05-26-2024 Anion gap [Moles/Vol] Serum or plasma an ion gap determination 6.0-15.0 [facility] Sodium [Moles/volume] in Ser um or PlasmaOrdered By: Richard Zamora on 05-26-2024 Sodium [Moles/Vol] Sodium [Moles/volume ] in Serum or Plasma 136-145 [facility] Urea nitrogen [Mass/volume] in Serum or PlasmaOrdered By: Richard Zamora on 05-26-2024 Urea nitrogen [Mass/Vol] Urea nitrogen [Mass/volume] in Serum or Plasma High 7-25 [facility] WBC Auto (Bld) [#/Vol]Ordere d By: Richard Zamora on 05-26-2024 WBC (Bld) [#/Vol] Leukocytes [#/volume ] in Blood by Automated count 4.1-10.5 [facility] Basic Metabolic Panelon Anion gap [Moles/Vol] 9.9 mmol/L Normal 6.0-15.0 [facility] Comment on above: Performed By: #### G LULS #### Point of Care testing , Calcium [Mass/Vol] 8.4 mg/dL Low 8.6-10.3 [facility] Comment on above: Performed By: #### G LULS #### Point of Care testing , Chloride [Moles/Vol] 104 mmol/L Normal 98-107 [facility] Comment on above: Performed By: #### G LULS #### Point of Care testing , CO2 [Moles/Vol] 29.8 mmol/L Normal 21.0-31.0 [facility] Comment on above: Performed By: #### G LULS #### Point of Care testing , Creatinine [Mass/Vol] 1.51 mg/dL High 0.70-1.30 [facility] Comment on above: Performed By: #### G LULS #### Point of Care testing , Creatinine Clr Calc Pharmacy 41.63 Normal [facility] Comment on above: Result Comment: PERF ORMED BY: [facility] [address] [place] [address] PATHOLOGIST MICROBIOLOGICAL LAB TECHNICIAN DEMOND ESCOBAR M.D. Performed By: #### G LULS #### Point of Care testing , Estimated GFR 46.982 mL/Min Normal [facility] Comment on above: Performed By: #### G LULS #### Point of Care testing , Glucose [Mass/Vol] 109 mg/dL High 70-100 [facility] Comment on above: Result Comment: [facility] Glucose Reference Range is dependent on time and content of last meal. Glucose of more than 200 mg/dL in a nonstressed, ambulatory subject supports the diagnosis of Diabetes Mellitus. ADA recommended reference range Performed By: #### G LULS #### Point of Care testing , Potassium [Moles/Vol] 3.7 mmol/L Normal 3.5-5.1 [facility] Comment on above: Performed By: #### G LULS #### Point of Care testing , Sodium [Moles/Vol] 140 mmol/L Normal 136-145 [facility] Comment on above: Performed By: #### G LULS #### Point of Care testing , Urea nitrogen [Mass/Vol] 78 mg/dL High 7-25 [facility] Comment on above: Performed By: #### G LULS #### Point of Care testing , Glucose Poct Glucometerson 0 05-25-2024 Glucose [Mass/Vol] 206 mg/dL Normal [facility] Comment on above: Result Comment: [facility] Glucose Reference Range is dependent on time and content of last meal. Glucose of more than 200 mg/dL in a nonstressed, ambulatory subject supports the diagnosis of Diabetes Mellitus. PERFORMED BY: [facility] [address] [place] [address] PATHOLOGIST MICROBIOLOGICAL LAB TECHNICIAN DEMOND ESCOBAR M.D. Performed By: #### G LULS #### Point of Care testing , Glucose [Mass/Vol] 191 mg/dL Normal [facility] Comment on above: Result Comment: [place] om Glucose Reference Range is dependent on time and content of last meal. Glucose of more than 200 mg/dL in a nonstressed, ambulatory subject supports the diagnosis of Diabetes Mellitus. PERFORMED BY: [address] [address] PATHOLOGIST MICROBIOLOGICAL LAB TECHNICIAN DEMOND ESCOBAR M.D. Performed By: #### G LULS #### Point of Care testing , Glucose [Mass/Vol] 200 mg/dL Normal [facility] Comment on above: Result Comment: [place] Glucose Reference Range is dependent on time and content of last meal. Glucose of more than 200 mg/dL in a nonstressed, ambulatory subject supports the diagnosis of Diabetes Mellitus. PERFORMED BY: [address] [address] PATHOLOGIST MICROBIOLOGICAL LAB TECHNICIAN DEMOND ESCOBAR M.D. Performed By: #### G LULS #### Point of Care testing , Glucose [Mass/Vol] 113 mg/dL Normal [facility] Comment on above: Result Comment: [facility] Glucose Reference Range is dependent on time and content of last meal. Glucose of more than 200 mg/dL in a nonstressed, ambulatory subject supports the diagnosis of Diabetes Mellitus. PERFORMED BY: [address] [address] PATHOLOGIST MICROBIOLOGICAL LAB TECHNICIAN DEMOND ESCOBAR M.D. Performed By: #### G LULS #### Point of Care testing , Hypochromia LM Ql (Bld)Order ed By: Richard Zamora on 05-25-2024 Hypochromia Ql (Bld) Hypochromia [Presen ce] in Blood by Light microscopy [facility] Polychromasia [Presence] in Blood by Light microscopyOrdered By: Richard Zamora on 05-25-2024 Polychromasia LM Ql (Bld) Polychromasia [Presence] in Blood by Light microscopy [facility] Scan and CBCon 05-25-2024 Anisocytosis Ql (Bld) Slight Normal [facility] Comment on above: Performed By: #### B MP, CBC #### [place] [address] [place] Basophils (Bld) [#/Vol] 0.0 10*3/uL Normal 0.0-0.2 [facility] Comment on above: Performed By: #### B MP, CBC #### [place] [address] [place] Basophils/100 WBC (Bld) 0.3 % Normal . [facility] Comment on above: Performed By: #### B MP, CBC #### [place] [address] [place] Eosinophils (Bld) [#/Vol] 0.0 10*3/uL Normal 0.0-0.45 [facility] Comment on above: Performed By: #### B MP, CBC #### [place] [address] [place] Eosinophils/100 WBC (Bld) 0.0 % Normal . [facility] Comment on above: Performed By: #### B MP, CBC #### [address] Erythrocyte distribution width (RBC) [Ratio] 16.2 % High 12.0-14.8 [facility] Comment on above: Performed By: #### B MP, CBC #### [address] Hematocrit (Bld) [Volume fraction] 23.9 % Low 38.8-50.0 [facility] Comment on above: Performed By: #### B MP, CBC #### [address] Hemoglobin (Bld) [Mass/Vol] 8.2 g/dL Low 13.0-17.0 [facility] Comment on above: Performed By: #### B MP, CBC #### [address] Hypochromasia Slight Normal [facility] Comment on above: Performed By: #### B MP, CBC #### [address] Lymphocytes (Bld) [#/Vol] 0.5 10*3/uL Low 1.00-4.8 [facility] Comment on above: Performed By: #### B MP, CBC #### [address] Lymphocytes/100 WBC (Bld) 5.6 % Normal . [facility] Comment on above: Performed By: #### B MP, CBC #### [address] MCH (RBC) [Entitic mass] 31.5 pg Normal 27.5-35.2 [facility] Comment on above: Performed By: #### B MP, CBC #### [address] MCV (RBC) [Entitic vol] 92.3 fL Normal 83.5-101 [facility] Comment on above: Performed By: #### B MP, CBC #### [address] Mean Corpuscular HGB Conc 34.1 g/dL Normal 32.5-35.6 [facility] Comment on above: Performed By: #### B MP, CBC #### [address] Monocytes (Bld) [#/Vol] 0.3 10*3/uL Normal 0.0-0.8 [facility] Comment on above: Performed By: #### B MP, CBC #### [place] [address] [place] Monocytes/100 WBC (Bld) 4.1 % Normal . [facility] Comment on above: Performed By: #### B MP, CBC #### [address] Neutrophils (Bld) [#/Vol] 7.6 10*3/uL Normal 1.8-7.7 [facility] Comment on above: Performed By: #### B MP, CBC #### [address] [place] [address] [place] Neutrophils/100 WBC (Bld) 90.0 % Normal . [facility] Comment on above: Performed By: #### B MP, CBC #### [address] NRBC% 0.2 /100{WBC} Normal 0-0.5 [facility] Comment on above: Performed By: #### B MP, CBC #### [address] Platelet Estimate Normal Normal Normal [facility] Comment on above: Performed By: #### B MP, CBC #### [address] Platelet mean volume (Bld) [Entitic vol] 6.6 fL Normal 6.6-10.1 [facility] Comment on above: Performed By: #### B MP, CBC #### [address] Platelet Morphology Normal Normal Normal [facility] Comment on above: Result Comment: PERF ORMED BY: [place] [address] PATHOLOGIST MICROBIOLOGICAL LAB TECHNICIAN DEMOND ESCOBAR M.D. Performed By: #### B MP, CBC #### [address] Platelets (Bld) [#/Vol] 341 10*3/uL Normal 150-450 [facility] Comment on above: Performed By: #### B MP, CBC #### [address] Polychromasia Slight Normal [facility] Comment on above: Performed By: #### B MP, CBC #### [address] RBC (Bld) [#/Vol] 2.59 10*6/uL Low 3.90-5.60 [facility] Comment on above: Performed By: #### B MP, CBC #### [address] WBC (Bld) [#/Vol] 8.4 10*3/uL Normal 4.1-10.5 [facility] Comment on above: Performed By: #### B MP, CBC #### [address] X-ray reportOrdered By: Aaron Edwards on 05-25-2024 Study report [place] [address] XRay Report Signed Patient: Leighton Arciniega MR#: [id number] : 1945 Acct:[id number] Age/Sex: 78 / M ADM Date: 5 Loc: Room: [address] [place] [address] Type: ADM IN Attending Dr: Richard Zamora [...] RECOMMENDED. Impression dictated by: Swapnil Edwards Jr., D.OAnisa05/25/2024 9:58 AM Dictation Location: [place] [address] Transcribed By: [facility] 05/25/24 0958 Dictated By: Swapnil Edwards Jr, DO 05/25/24 0958 Signed By: 05/25/24 0958 [facility] XR chest 2V*on 05-25-2024 XR chest 2V* [facility] [address] [address] XRay Report Signed Patient: Leighton Arciniega MR#: [id number] : 1945 Acct:[id number] Age/Sex: 78 / M ADM Date: 05/20/24 Loc: Room: [address] [place] [address] Type: ADM IN Attending Dr: Richard Zamora [...] Edwards Jr., D.O.05/25/2024 9:58 AM Dictation Location: [place] [address] Transcribed By: [facility] 05/25/24 0958 Dictated By: Swapnil Edwards Jr, DO 05/25/24 0958 Signed By: 05/25/24 0958 Normal [facility] Basic Metabolic Panelon Anion gap [Moles/Vol] 11.5 mmol/L Normal 6.0-15.0 [facility] Comment on above: Performed By: #### B MP, CBC #### [facility] [address] [place] [address] [place] Calcium [Mass/Vol] 8.6 mg/dL Normal 8.6-10.3 [facility] Comment on above: Performed By: #### B MP, CBC #### [facility] [address] [place] [id number] [place] Chloride [Moles/Vol] 103 mmol/L Normal 98-107 [facility] Comment on above: Performed By: #### B MP, CBC #### [facility] [address] [place] [id number] [place] CO2 [Moles/Vol] 29.1 mmol/L Normal 21.0-31.0 [facility] Comment on above: Performed By: #### B MP, CBC #### [address] Creatinine [Mass/Vol] 1.91 mg/dL High 0.70-1.30 [facility] Comment on above: Performed By: #### B MP, CBC #### [place] [address] [place] Creatinine Clr Calc Pharmacy 32.91 Normal [facility] Comment on above: Result Comment: PERF ORMED BY: [place] [address] PATHOLOGIST MICROBIOLOGICAL LAB TECHNICIAN DEMOND ESCOBAR M.D. Performed By: #### B MP, CBC #### [address] Estimated GFR 35.437 mL/Min Normal [facility] Comment on above: Performed By: #### B MP, CBC #### [address] Glucose [Mass/Vol] 170 mg/dL High 70-100 [facility] Comment on above: Result Comment: [facility] Glucose Reference Range is dependent on time and content of last meal. Glucose of more than 200 mg/dL in a nonstressed, ambulatory subject supports the diagnosis of Diabetes Mellitus. ADA recommended reference range Performed By: #### B MP, CBC #### [address] Potassium [Moles/Vol] 3.6 mmol/L Normal 3.5-5.1 [facility] Comment on above: Performed By: #### B MP, CBC #### [place] [address] [place] Sodium [Moles/Vol] 140 mmol/L Normal 136-145 [facility] Comment on above: Performed By: #### B MP, CBC #### [place] [address] [place] Urea nitrogen [Mass/Vol] 83 mg/dL High 7-25 [facility] Comment on above: Performed By: #### B MP, CBC #### [place] [address] [place] Complete Blood Count Auto Di ffon 05-24-2024 Basophils (Bld) [#/Vol] 0.0 10*3/uL Normal 0.0-0.2 [facility] Comment on above: Result Comment: PERF ORMED BY: [place] [address] PATHOLOGIST MICROBIOLOGICAL LAB TECHNICIAN DEMOND ESCOBAR M.D. Performed By: #### B MP, CBC #### [address] Basophils/100 WBC (Bld) 0.6 % Normal . [facility] Comment on above: Performed By: #### B MP, CBC #### [address] Eosinophils (Bld) [#/Vol] 0.0 10*3/uL Normal 0.0-0.45 [facility] Comment on above: Performed By: #### B MP, CBC #### [address] Eosinophils/100 WBC (Bld) 0.1 % Normal . [facility] Comment on above: Performed By: #### B MP, CBC #### [address] Erythrocyte distribution width (RBC) [Ratio] 16.1 % High 12.0-14.8 [facility] Comment on above: Performed By: #### B MP, CBC #### [address] Hematocrit (Bld) [Volume fraction] 23.8 % Low 38.8-50.0 [facility] Comment on above: Performed By: #### B MP, CBC #### [address] Hemoglobin (Bld) [Mass/Vol] 8.2 g/dL Low 13.0-17.0 [facility] Comment on above: Performed By: #### B MP, CBC #### [address] Lymphocytes (Bld) [#/Vol] 0.4 10*3/uL Low 1.00-4.8 [facility] Comment on above: Performed By: #### B MP, CBC #### [address] Lymphocytes/100 WBC (Bld) 5.0 % Normal . [facility] Comment on above: Performed By: #### B MP, CBC #### [address] MCH (RBC) [Entitic mass] 32.1 pg Normal 27.5-35.2 [facility] Comment on above: Performed By: #### B MP, CBC #### [address] MCV (RBC) [Entitic vol] 93.6 fL Normal 83.5-101 [facility] Comment on above: Performed By: #### B MP, CBC #### [address] Mean Corpuscular HGB Conc 34.3 g/dL Normal 32.5-35.6 [facility] Comment on above: Performed By: #### B MP, CBC #### [address] Monocytes (Bld) [#/Vol] 0.3 10*3/uL Normal 0.0-0.8 [facility] Comment on above: Performed By: #### B MP, CBC #### [address] Monocytes/100 WBC (Bld) 3.3 % Normal . [facility] Comment on above: Performed By: #### B MP, CBC #### [address] Neutrophils (Bld) [#/Vol] 8.0 10*3/uL High 1.8-7.7 [facility] Comment on above: Performed By: #### B MP, CBC #### [address] Neutrophils/100 WBC (Bld) 91.0 % Normal . [facility] Comment on above: Performed By: #### B MP, CBC #### [address] NRBC% 0.1 /100{WBC} Normal 0-0.5 [facility] Comment on above: Performed By: #### B MP, CBC #### [address] Platelet mean volume (Bld) [Entitic vol] 6.5 fL Low 6.6-10.1 [facility] Comment on above: Performed By: #### B MP, CBC #### [address] Platelets (Bld) [#/Vol] 292 10*3/uL Normal 150-450 [facility] Comment on above: Performed By: #### B MP, CBC #### [address] RBC (Bld) [#/Vol] 2.55 10*6/uL Low 3.90-5.60 [facility] Comment on above: Performed By: #### B MP, CBC #### [address] WBC (Bld) [#/Vol] 8.7 10*3/uL Normal 4.1-10.5 [facility] Comment on above: Performed By: #### B MP, CBC #### [address] Glucose Poct Glucometerson 0 05-24-2024 Glucose [Mass/Vol] 138 mg/dL Normal [facility] Comment on above: Result Comment: [facility] Glucose Reference Range is dependent on time and content of last meal. Glucose of more than 200 mg/dL in a nonstressed, ambulatory subject supports the diagnosis of Diabetes Mellitus. PERFORMED BY: [place] [address] PATHOLOGIST MICROBIOLOGICAL LAB TECHNICIAN DEMOND ESCOBAR M.D. Performed By: #### G ALEKSANDAR #### Point of Care testing , Glucose [Mass/Vol] 183 mg/dL Normal [facility] Comment on above: Result Comment: [facility] Glucose Reference Range is dependent on time and content of last meal. Glucose of more than 200 mg/dL in a nonstressed, ambulatory subject supports the diagnosis of Diabetes Mellitus. PERFORMED BY: [address] [place] [address] PATHOLOGIST MICROBIOLOGICAL LAB TECHNICIAN DEMOND ESCOBAR M.D. Performed By: #### G LULS ####Point of Care testing, Glucose [Mass/Vol] 269 mg/dL Normal [facility] Comment on above: Result Comment: [facility] Glucose Reference Range is dependent on time and content of last meal. Glucose of more than 200 mg/dL in a nonstressed, ambulatory subject supports the diagnosis of Diabetes Mellitus. PERFORMED BY: [address] [place] [address] PATHOLOGIST MICROBIOLOGICAL LAB TECHNICIAN DEMOND ESCOBAR M.D. Performed By: #### G LULS #### Point of Care testing , Glucose [Mass/Vol] 185 mg/dL Normal [facility] Comment on above: Result Comment: [facility] Glucose Reference Range is dependent on time and content of last meal. Glucose of more than 200 mg/dL in a nonstressed, ambulatory subject supports the diagnosis of Diabetes Mellitus. PERFORMED BY: [address] [place] [address] PATHOLOGIST MICROBIOLOGICAL LAB TECHNICIAN DEMOND ESCOBAR M.D. Performed By: #### G LULS ####Point of Care testing, Basic Metabolic Panelon 03-0 Anion gap [Moles/Vol] 13.5 mmol/L Normal 6.0-15.0 [facility] Comment on above: Performed By: #### G LULS #### Point of Care testing , Calcium [Mass/Vol] 8.5 mg/dL Low 8.6-10.3 [facility] Comment on above: Performed By: #### G LULS #### Point of Care testing , Chloride [Moles/Vol] 103 mmol/L Normal 98-107 [facility] Comment on above: Performed By: #### G LULS #### Point of Care testing , CO2 [Moles/Vol] 29.2 mmol/L Normal 21.0-31.0 [facility] Comment on above: Performed By: #### G LULS #### Point of Care testing , Creatinine [Mass/Vol] 1.78 mg/dL High 0.70-1.30 [facility] Comment on above: Performed By: #### G LULS #### Point of Care testing , Creatinine Clr Calc Pharmacy 35.32 Normal [facility] Comment on above: Result Comment: PERF ORMED BY: [facility] [address] [place] [address] PATHOLOGIST MICROBIOLOGICAL LAB TECHNICIAN DEMOND ESCOBAR M.D. Performed By: #### G LULS #### Point of Care testing , Estimated GFR 38.565 mL/Min Normal [facility] Comment on above: Performed By: #### G LULS #### Point of Care testing , Glucose [Mass/Vol] 245 mg/dL High 70-100 [facility] Comment on above: Result Comment: [place] Glucose Reference Range is dependent on time and content of last meal. Glucose of more than 200 mg/dL in a nonstressed, ambulatory subject supports the diagnosis of Diabetes Mellitus. ADA recommended reference range Performed By: #### G LULS #### Point of Care testing , Potassium [Moles/Vol] 3.7 mmol/L Normal 3.5-5.1 [facility] Comment on above: Performed By: #### G LULS #### Point of Care testing , Sodium [Moles/Vol] 142 mmol/L Normal 136-145 [facility] Comment on above: Performed By: #### G LULS #### Point of Care testing , Urea nitrogen [Mass/Vol] 77 mg/dL High 7-25 [facility] Comment on above: Performed By: #### G LULS #### Point of Care testing , Complete Blood Count Auto Di ffon 05-23-2024 Basophils (Bld) [#/Vol] 0.0 10*3/uL Normal 0.0-0.2 [facility] Comment on above: Result Comment: PERF ORMED BY: [facility] [place] [address] PATHOLOGIST MICROBIOLOGICAL LAB TECHNICIAN DEMOND ESCOBAR M.D. Performed By: #### G LULS #### Point of Care testing , Basophils/100 WBC (Bld) 0.2 % Normal . [facility] Comment on above: Performed By: #### G LULS #### Point of Care testing , Eosinophils (Bld) [#/Vol] 0.0 10*3/uL Normal 0.0-0.45 [facility] Comment on above: Performed By: #### G LULS #### Point of Care testing , Eosinophils/100 WBC (Bld) 0.0 % Normal . [facility] Comment on above: Performed By: #### G LULS #### Point of Care testing , Erythrocyte distribution width (RBC) [Ratio] 15.6 % High 12.0-14.8 [facility] Comment on above: Performed By: #### G LULS #### Point of Care testing , Hematocrit (Bld) [Volume fraction] 23.3 % Low 38.8-50.0 [facility] Comment on above: Performed By: #### G LULS #### Point of Care testing , Hemoglobin (Bld) [Mass/Vol] 8.0 g/dL Low 13.0-17.0 [facility] Comment on above: Performed By: #### G LULS #### Point of Care testing , Lymphocytes (Bld) [#/Vol] 0.3 10*3/uL Low 1.00-4.8 [facility] Comment on above: Performed By: #### G LULS #### Point of Care testing , Lymphocytes/100 WBC (Bld) 4.2 % Normal . [facility] Comment on above: Performed By: #### G LULS #### Point of Care testing , MCH (RBC) [Entitic mass] 31.9 pg Normal 27.5-35.2 [facility] Comment on above: Performed By: #### G LULS #### Point of Care testing , MCV (RBC) [Entitic vol] 92.6 fL Normal 83.5-101 [facility] Comment on above: Performed By: #### G LULS #### Point of Care testing , Mean Corpuscular HGB Conc 34.5 g/dL Normal 32.5-35.6 [facility] Comment on above: Performed By: #### G LULS #### Point of Care testing , Monocytes (Bld) [#/Vol] 0.3 10*3/uL Normal 0.0-0.8 [facility] Comment on above: Performed By: #### G LULS #### Point of Care testing , Monocytes/100 WBC (Bld) 3.9 % Normal . [facility] Comment on above: Performed By: #### G LULS #### Point of Care testing , Neutrophils (Bld) [#/Vol] 7.1 10*3/uL Normal 1.8-7.7 [facility] Comment on above: Performed By: #### G LULS #### Point of Care testing , Neutrophils/100 WBC (Bld) 91.7 % Normal . [facility] Comment on above: Performed By: #### G LULS #### Point of Care testing , NRBC% 0.1 /100{WBC} Normal 0-0.5 [facility] Comment on above: Performed By: #### G LULS #### Point of Care testing , Platelet mean volume (Bld) [Entitic vol] 7.2 fL Normal 6.6-10.1 [facility] Comment on above: Performed By: #### G LULS #### Point of Care testing , Platelets (Bld) [#/Vol] 239 10*3/uL Normal 150-450 [facility] Comment on above: Performed By: #### G LULS #### Point of Care testing , RBC (Bld) [#/Vol] 2.51 10*6/uL Low 3.90-5.60 [facility] Comment on above: Performed By: #### G LULS #### Point of Care testing , WBC (Bld) [#/Vol] 7.7 10*3/uL Normal 4.1-10.5 [facility] Comment on above: Performed By: #### G LULS #### Point of Care testing , Glucose Poct Glucometerson 0 05-23-2024 Glucose [Mass/Vol] 204 mg/dL Normal [facility] Comment on above: Result Comment: [facility] Glucose Reference Range is dependent on time and content of last meal. Glucose of more than 200 mg/dL in a nonstressed, ambulatory subject supports the diagnosis of Diabetes Mellitus. PERFORMED BY: [place] [id number] PATHOLOGIST MICROBIOLOGICAL LAB TECHNICIAN DEMOND ESCOBAR M.D. Performed By: #### G LULS ####Point of Care testing, Glucose [Mass/Vol] 132 mg/dL Normal [facility] Comment on above: Result Comment: [facility] Glucose Reference Range is dependent on time and content of last meal. Glucose of more than 200 mg/dL in a nonstressed, ambulatory subject supports the diagnosis of Diabetes Mellitus. PERFORMED BY: [address] [address] PATHOLOGIST MICROBIOLOGICAL LAB TECHNICIAN DEMOND ESCOBAR M.D. Performed By: #### G LULS ####Point of Care testing, Glucose [Mass/Vol] 95 mg/dL Normal [facility] Comment on above: Result Comment: [facility] Glucose Reference Range is dependent on time and content of last meal. Glucose of more than 200 mg/dL in a nonstressed, ambulatory subject supports the diagnosis of Diabetes Mellitus. PERFORMED BY: [address] [place] [address] PATHOLOGIST MICROBIOLOGICAL LAB TECHNICIAN DEMOND ESCOBAR M.D. Performed By: #### G LULS ####Point of Care testing, Commemt1 Normal [facility] Comment on above: Result Comment: Glu2 : WILL NOTIFY DR/RN PERFORMED BY: [address] [place] [address] PATHOLOGIST MICROBIOLOGICAL LAB TECHNICIAN DEMOND ESCOBAR M.D. Performed By: #### G LULS #### Point of Care testing , Glucose [Mass/Vol] 406 mg/dL Off scale high [facility] Comment on above: Result Comment: [place] Glucose Reference Range is dependent on time and content of last meal. Glucose of more than 200 mg/dL in a nonstressed, ambulatory subject supports the diagnosis of Diabetes Mellitus. Performed By: #### G LULS #### Point of Care testing , Commemt1 Normal [facility] Comment on above: Result Comment: Glu2 : Will Repeat Test PERFORMED BY: [address] [address] PATHOLOGIST MICROBIOLOGICAL LAB TECHNICIAN DEMOND ESCOBAR M.D. Performed By: #### G LULS ####Point of Care testing, Glucose [Mass/Vol] 475 mg/dL Off scale high [facility] Comment on above: Result Comment: [place] om Glucose Reference Range is dependent on time and content of last meal. Glucose of more than 200 mg/dL in a nonstressed, ambulatory subject supports the diagnosis of Diabetes Mellitus. Performed By: #### G LULS ####Point of Care testing, Glucose [Mass/Vol] 298 mg/dL Normal [facility] Comment on above: Result Comment: [place] Glucose Reference Range is dependent on time and content of last meal. Glucose of more than 200 mg/dL in a nonstressed, ambulatory subject supports the diagnosis of Diabetes Mellitus. PERFORMED BY: [place] [address] PATHOLOGIST MICROBIOLOGICAL LAB TECHNICIAN DEMOND ESCOBAR M.D. Performed By: #### G LULS #### Point of Care testing , NM nelson perf SPECT rest stron 05-23-2024 NM nelson perf SPECT rest str [facility] [place] [address] [place] [address] Nuclear Medicine Report Signed Patient: Leighton Arciniega MR#: [id number] : 1945 Acct:[id number] Age/Sex: 78 / M ADM Date: 05/20/24 Loc: Room: [address] [place] [address] Type: ADM IN Attending Dr: Richard Zamora DO Copies to: MD Richard Celeste DO Ordering Provider: John Nettles MD Date of Service: 05/23/24 NM/NM nelson perf SPECT rest str: *Dose ordered chf NUCLEAR MYOCARDIAL PERFUSION DATE OF PROCEDURE: 05/23/2024 ATTENDING MEDICAL AIDES TEACHER: Dr. John Nettles REQUESTING PHYSICIAN: Dr. Harvey [...] John Nettles M.D.05/23/2024 2:23 PM Dictation Location: [place] [address] Transcribed By: [place] 05/23/24 1423 Dictated By: John Nettles MD 05/23/24 1417 Signed By: 05/23/24 1423 Normal [facility] No Panel InformationOrdered By: John Nettles on 05-23-2024 [place] [address] Cardiac Stress Test Signed Patient: Leighton Arciniega MR#: [id number] : 1945 Date of Service:0 05/23/24 Age/Sex: 78 / M ADM Date: 5 Loc: Room: 5I2818-2 Type: ADM IN Attending Dr: Richard Zamora [...] abby 05/23/242028 Dictated By: John Nettles MD 05/23/241128 Signed By: 05/23/242034 [facility] Work Phone: Basic Metabolic Panelon Anion gap [Moles/Vol] 12.7 mmol/L Normal 6.0-15.0 [facility] Comment on above: Performed By: #### G LULS #### Point of Care testing , Calcium [Mass/Vol] 9.0 mg/dL Normal 8.6-10.3 [facility] Comment on above: Performed By: #### G LULS #### Point of Care testing , Chloride [Moles/Vol] 103 mmol/L Normal 98-107 [facility] Comment on above: Performed By: #### G LULS #### Point of Care testing , CO2 [Moles/Vol] 27.0 mmol/L Normal 21.0-31.0 [facility] Comment on above: Performed By: #### G LULS #### Point of Care testing , Creatinine [Mass/Vol] 1.90 mg/dL High 0.70-1.30 [facility] Comment on above: Performed By: #### G LULS #### Point of Care testing , Creatinine Clr Calc Pharmacy 36.62 Normal [facility] Comment on above: Performed By: #### G LULS #### Point of Care testing , Estimated GFR 35.661 mL/Min Normal [facility] Comment on above: Performed By: #### G LULS #### Point of Care testing , Glucose [Mass/Vol] 152 mg/dL High 70-100 [facility] Comment on above: Result Comment: [place] Glucose Reference Range is dependent on time and content of last meal. Glucose of more than 200 mg/dL in a nonstressed, ambulatory subject supports the diagnosis of Diabetes Mellitus. ADA recommended reference range Performed By: #### G LULS #### Point of Care testing , Potassium [Moles/Vol] 3.7 mmol/L Normal 3.5-5.1 [facility] Comment on above: Performed By: #### G LULS #### Point of Care testing , Sodium [Moles/Vol] 139 mmol/L Normal 136-145 [facility] Comment on above: Performed By: #### G LULS #### Point of Care testing , Urea nitrogen [Mass/Vol] 59 mg/dL High 7-25 [facility] Comment on above: Performed By: #### G LULS #### Point of Care testing , Complete Blood Count Auto Di ffon 05-22-2024 Basophils (Bld) [#/Vol] 0.0 10*3/uL Normal 0.0-0.2 [facility] Comment on above: Result Comment: PERF ORMED BY: [facility] [place] [address] PATHOLOGIST MICROBIOLOGICAL LAB TECHNICIAN DEMOND ESCOBAR M.D. Performed By: #### G LULS #### Point of Care testing , Basophils/100 WBC (Bld) 0.5 % Normal . [facility] Comment on above: Performed By: #### G LULS #### Point of Care testing , Eosinophils (Bld) [#/Vol] 0.0 10*3/uL Normal 0.0-0.45 [facility] Comment on above: Performed By: #### G LULS #### Point of Care testing , Eosinophils/100 WBC (Bld) 0.0 % Normal . [facility] Comment on above: Performed By: #### G LULS #### Point of Care testing , Erythrocyte distribution width (RBC) [Ratio] 16.4 % High 12.0-14.8 [facility] Comment on above: Performed By: #### G LULS #### Point of Care testing , Hematocrit (Bld) [Volume fraction] 23.5 % Low 38.8-50.0 [facility] Comment on above: Performed By: #### G LULS #### Point of Care testing , Hemoglobin (Bld) [Mass/Vol] 7.9 g/dL Low 13.0-17.0 [facility] Comment on above: Performed By: #### G LULS #### Point of Care testing , Lymphocytes (Bld) [#/Vol] 0.3 10*3/uL Low 1.00-4.8 [facility] Comment on above: Performed By: #### G LULS #### Point of Care testing , Lymphocytes/100 WBC (Bld) 4.8 % Normal . [facility] Comment on above: Performed By: #### G LULS #### Point of Care testing , MCH (RBC) [Entitic mass] 31.8 pg Normal 27.5-35.2 [facility] Comment on above: Performed By: #### G LULS #### Point of Care testing , MCV (RBC) [Entitic vol] 94.7 fL Normal 83.5-101 [facility] Comment on above: Performed By: #### G LULS #### Point of Care testing , Mean Corpuscular HGB Conc 33.5 g/dL Normal 32.5-35.6 [facility] Comment on above: Performed By: #### G LULS #### Point of Care testing , Monocytes (Bld) [#/Vol] 0.1 10*3/uL Normal 0.0-0.8 [facility] Comment on above: Performed By: #### G LULS #### Point of Care testing , Monocytes/100 WBC (Bld) 1.6 % Normal . [facility] Comment on above: Performed By: #### G LULS #### Point of Care testing , Neutrophils (Bld) [#/Vol] 5.0 10*3/uL Normal 1.8-7.7 [facility] Comment on above: Performed By: #### G LULS #### Point of Care testing , Neutrophils/100 WBC (Bld) 93.1 % Normal . [facility] Comment on above: Performed By: #### G LULS #### Point of Care testing , NRBC% 0.0 /100{WBC} Normal 0-0.5 [facility] Comment on above: Performed By: #### G LULS #### Point of Care testing , Platelet mean volume (Bld) [Entitic vol] 7.0 fL Normal 6.6-10.1 [facility] Comment on above: Performed By: #### G LULS #### Point of Care testing , Platelets (Bld) [#/Vol] 195 10*3/uL Normal 150-450 [facility] Comment on above: Performed By: #### G LULS #### Point of Care testing , RBC (Bld) [#/Vol] 2.48 10*6/uL Low 3.90-5.60 [facility] Comment on above: Performed By: #### G LULS #### Point of Care testing , WBC (Bld) [#/Vol] 5.4 10*3/uL Normal 4.1-10.5 [facility] Comment on above: Performed By: #### G LULS #### Point of Care testing , Ferritinon 05-22-2024 Ferritin [Mass/Vol] 717.0 ng/mL High 23.9-336.2 [facility] Comment on above: Performed By: #### G LULS #### Point of Care testing , Ferritin [Mass/volume] in Se rum or PlasmaOrdered By: Richard Zamora on 05-22-2024 Ferritin [Mass/Vol] Ferritin [Mass/volum e] in Serum or Plasma High 23.9-336.2 [facility] Folate [Mass/volume] in Seru m or PlasmaOrdered By: Richard Zamora on 05-22-2024 Folate [Mass/Vol] Folate [Mass/volume] in Serum or Plasma >5.9 [facility] Comment on above: Folate reference ran ge: >5.9 ng/mlThe WHO technical consultation on folate and vitamin [id number] has determined that folate concentrations lessthan 4 ng/ml are considered deficient. Glucose Poct Glucometerson 0 05-22-2024 Glucose [Mass/Vol] 367 mg/dL Normal [facility] Comment on above: Result Comment: [place] Glucose Reference Range is dependent on time and content of last meal. Glucose of more than 200 mg/dL in a nonstressed, ambulatory subject supports the diagnosis of Diabetes Mellitus. PERFORMED BY: [place] [address] PATHOLOGIST MICROBIOLOGICAL LAB TECHNICIAN DEMOND ESCOBAR M.D. Performed By: #### G LULS #### Point of Care testing , Glucose [Mass/Vol] 358 mg/dL Normal [facility] Comment on above: Result Comment: [facility] Glucose Reference Range is dependent on time and content of last meal. Glucose of more than 200 mg/dL in a nonstressed, ambulatory subject supports the diagnosis of Diabetes Mellitus. PERFORMED BY: [place] [address] PATHOLOGIST MICROBIOLOGICAL LAB TECHNICIAN DEMOND ESCOBAR M.D. Performed By: #### B MP, CBC #### [address] Commemt1 Glu2: Cleaned Meter Normal [facility] Comment on above: Result Comment: PERF ORMED BY: [place] [address] PATHOLOGIST MICROBIOLOGICAL LAB TECHNICIAN DEMOND ESCOBAR M.D. Performed By: #### G LULS ####Point of Care testing, Glucose [Mass/Vol] 253 mg/dL Normal [facility] Comment on above: Result Comment: [place] Glucose Reference Range is dependent on time and content of last meal. Glucose of more than 200 mg/dL in a nonstressed, ambulatory subject supports the diagnosis of Diabetes Mellitus. Performed By: #### G LULS ####Point of Care testing, Glucose [Mass/Vol] 305 mg/dL Normal [facility] Comment on above: Result Comment: [place] Glucose Reference Range is dependent on time and content of last meal. Glucose of more than 200 mg/dL in a nonstressed, ambulatory subject supports the diagnosis of Diabetes Mellitus. PERFORMED BY: [place] [address] PATHOLOGIST MICROBIOLOGICAL LAB TECHNICIAN DEMOND ESCOBAR M.D. Performed By: #### G LULS #### Point of Care testing , Glucose [Mass/Vol] 226 mg/dL Normal [facility] Comment on above: Result Comment: [place] Glucose Reference Range is dependent on time and content of last meal. Glucose of more than 200 mg/dL in a nonstressed, ambulatory subject supports the diagnosis of Diabetes Mellitus. PERFORMED BY: [place] [address] PATHOLOGIST MICROBIOLOGICAL LAB TECHNICIAN DEMOND ESCOBAR M.D. Performed By: #### B MP, CBC #### [place] [id number] [place] MRSA Cultureon 05-22-2024 MRSA Culture No MRSA Isolated 2 Days No growth Day 2. PERFORMED BY: [place] [address] PATHOLOGIST MICROBIOLOGICAL LAB TECHNICIAN DEMOND ESCOBAR M.D. Normal [facility] Comment on above: Performed By: #### B MP, CBC #### [place] [id number] [place] Magnesiumon 05-22-2024 Magnesium [Mass/Vol] 1.6 mg/dL Low 1.9-2.7 [facility] Comment on above: Performed By: #### G LULS #### Point of Care testing , Vit. B12/Folate Profileon Cobalamin (Vitamin B12) [Mass/Vol] 690 pg/mL Normal 180-914 [facility] Comment on above: Performed By: #### G LULS #### Point of Care testing , Folate 18.5 ng/mL Normal >5.9 [facility] Comment on above: Result Comment: [place] te reference range: >5.9 ng/ml The WHO technical consultation on folate and vitamin b12 deficiencies has determined that folate concentrations less than 4 ng/ml are considered deficient. PERFORMED BY: [place] [address] PATHOLOGIST MICROBIOLOGICAL LAB TECHNICIAN DEMOND ESCOBAR M.D. Performed By: #### G LULS #### Point of Care testing , Vitamin B12 ser/plasOrdered By: Richard Zamora on 05-22-2024 Cobalamin (Vitamin B12) [Mass/Vol] Vitamin B12 ser/plas 180-914 [facility] Wound methicillin resistant Staphylococcus aureus (MRSA) cultureOrdered By: Darshan Willams on 05-22-2024 MRSA isol Org specific cx Ql (Unsp spec) Wound methicillin resistant Staphylococcus aureus (MRSA) culture [facility] A1C with Estimated Average G luon 05-21-2024 Glucose [Mass/Vol] 169 mg/dL Normal [facility] Comment on above: Result Comment: PERF ORMED BY: [place] [address] PATHOLOGIST MICROBIOLOGICAL LAB TECHNICIAN DEMOND ESCOBAR M.D. Performed By: #### B MP, CBC #### [address] HbA1c (Bld) [Mass fraction] 7.5 % High 4.3-5.6 [facility] Comment on above: Result Comment: Incr eased risk for diabetes: 5.7 - 6.4 diabetes: >6.4 glycemic control for adults with diabetes: <7.0 Performed By: #### B MP, CBC #### [address] Basic Metabolic Panelon 030 Anion gap [Moles/Vol] 10.7 mmol/L Normal 6.0-15.0 [facility] Comment on above: Performed By: #### B MP, CBC #### [address] Calcium [Mass/Vol] 8.6 mg/dL Normal 8.6-10.3 [facility] Comment on above: Performed By: #### B MP, CBC #### [address] Chloride [Moles/Vol] 102 mmol/L Normal 98-107 [facility] Comment on above: Performed By: #### B MP, CBC #### [address] CO2 [Moles/Vol] 26.6 mmol/L Normal 21.0-31.0 [facility] Comment on above: Performed By: #### B MP, CBC #### [address] Creatinine [Mass/Vol] 1.82 mg/dL High 0.70-1.30 [facility] Comment on above: Performed By: #### B MP, CBC #### [place] [address] [place] Creatinine Clr Calc Pharmacy 38.32 Normal [facility] Comment on above: Performed By: #### B MP, CBC #### [address] Estimated GFR 37.550 mL/Min Normal [facility] Comment on above: Performed By: #### B MP, CBC #### [address] Glucose [Mass/Vol] 186 mg/dL High 70-100 [facility] Comment on above: Result Comment: [place] Glucose Reference Range is dependent on time and content of last meal. Glucose of more than 200 mg/dL in a nonstressed, ambulatory subject supports the diagnosis of Diabetes Mellitus. ADA recommended reference range Performed By: #### B MP, CBC #### [address] Potassium [Moles/Vol] 3.3 mmol/L Low 3.5-5.1 [facility] Comment on above: Performed By: #### B MP, CBC #### [address] Sodium [Moles/Vol] 136 mmol/L Normal 136-145 [facility] Comment on above: Performed By: #### B MP, CBC #### [address] Urea nitrogen [Mass/Vol] 50 mg/dL High 7-25 [facility] Comment on above: Performed By: #### B MP, CBC #### [address] Blood estimated average gluc ose determination by estimation from glycated hemoglobinOrdered By: Don Patel on 05-21-2024 Average glucose Estimated from glycated hemoglobin (Bld) [Mass/Vol] Glucose mean value [Mass/volume] in Blood Estimated from glycated hemoglobin [facility] Complete Blood Count Auto Di ffon 05-21-2024 Basophils (Bld) [#/Vol] 0.1 10*3/uL Normal 0.0-0.2 [facility] Comment on above: Result Comment: PERF ORMED BY: [place] [address] PATHOLOGIST MICROBIOLOGICAL LAB TECHNICIAN DEMOND ESCOBAR M.D. Performed By: #### B MP, CBC #### [place] [address] [place] Basophils/100 WBC (Bld) 0.7 % Normal . [facility] Comment on above: Performed By: #### B MP, CBC #### [place] [address] [place] Eosinophils (Bld) [#/Vol] 0.1 10*3/uL Normal 0.0-0.45 [facility] Comment on above: Performed By: #### B MP, CBC #### [address] Eosinophils/100 WBC (Bld) 1.7 % Normal . [facility] Comment on above: Performed By: #### B MP, CBC #### [address] Erythrocyte distribution width (RBC) [Ratio] 16.2 % High 12.0-14.8 [facility] Comment on above: Performed By: #### B MP, CBC #### [address] Hematocrit (Bld) [Volume fraction] 22.5 % Low 38.8-50.0 [facility] Comment on above: Performed By: #### B MP, CBC #### [address] Hemoglobin (Bld) [Mass/Vol] 7.6 g/dL Low 13.0-17.0 [facility] Comment on above: Performed By: #### B MP, CBC #### [address] Lymphocytes (Bld) [#/Vol] 0.9 10*3/uL Low 1.00-4.8 [facility] Comment on above: Performed By: #### B MP, CBC #### [address] Lymphocytes/100 WBC (Bld) 11.5 % Normal . [facility] Comment on above: Performed By: #### B MP, CBC #### [address] MCH (RBC) [Entitic mass] 32.1 pg Normal 27.5-35.2 [facility] Comment on above: Performed By: #### B MP, CBC #### [address] MCV (RBC) [Entitic vol] 94.3 fL Normal 83.5-101 [facility] Comment on above: Performed By: #### B MP, CBC #### [facility] [address] Mean Corpuscular HGB Conc 34.0 g/dL Normal 32.5-35.6 [facility] Comment on above: Performed By: #### B MP, CBC #### [address] Monocytes (Bld) [#/Vol] 0.5 10*3/uL Normal 0.0-0.8 [facility] Comment on above: Performed By: #### B MP, CBC #### [place] [address] [place] Monocytes/100 WBC (Bld) 6.9 % Normal . [facility] Comment on above: Performed By: #### B MP, CBC #### [address] Neutrophils (Bld) [#/Vol] 6.1 10*3/uL Normal 1.8-7.7 [facility] Comment on above: Performed By: #### B MP, CBC #### [place] [address] [place] Neutrophils/100 WBC (Bld) 79.2 % Normal . [facility] Comment on above: Performed By: #### B MP, CBC #### [address] NRBC% 0.0 /100{WBC} Normal 0-0.5 [facility] Comment on above: Performed By: #### B MP, CBC #### [address] Platelet mean volume (Bld) [Entitic vol] 7.0 fL Normal 6.6-10.1 [facility] Comment on above: Performed By: #### B MP, CBC #### [place] [address] [place] Platelets (Bld) [#/Vol] 170 10*3/uL Normal 150-450 [facility] Comment on above: Performed By: #### B MP, CBC #### [facility] [address] RBC (Bld) [#/Vol] 2.38 10*6/uL Low 3.90-5.60 [facility] Comment on above: Performed By: #### B MP, CBC #### [facility] [address] WBC (Bld) [#/Vol] 7.7 10*3/uL Normal 4.1-10.5 [facility] Comment on above: Performed By: #### B MP, CBC #### [address] Glucose Poct Glucometerson 0 05-21-2024 Commemt1 Glu2: Cleaned Meter Normal [facility] Comment on above: Result Comment: PERF ORMED BY: [place] [address] PATHOLOGIST MICROBIOLOGICAL LAB TECHNICIAN DEMOND ESCOBAR M.D. Performed By: #### G LULS #### Point of Care testing , Glucose [Mass/Vol] 172 mg/dL Normal [facility] Comment on above: Result Comment: [place] Glucose Reference Range is dependent on time and content of last meal. Glucose of more than 200 mg/dL in a nonstressed, ambulatory subject supports the diagnosis of Diabetes Mellitus. Performed By: #### G LULS #### Point of Care testing , Glucose [Mass/Vol] 315 mg/dL Normal [facility] Comment on above: Result Comment: [place] Glucose Reference Range is dependent on time and content of last meal. Glucose of more than 200 mg/dL in a nonstressed, ambulatory subject supports the diagnosis of Diabetes Mellitus. PERFORMED BY: [place] [address] PATHOLOGIST MICROBIOLOGICAL LAB TECHNICIAN DEMOND ESCOBAR M.D. Performed By: #### G LULS #### Point of Care testing , Glucose [Mass/Vol] 315 mg/dL Normal [facility] Comment on above: Result Comment: [facility] Glucose Reference Range is dependent on time and content of last meal. Glucose of more than 200 mg/dL in a nonstressed, ambulatory subject supports the diagnosis of Diabetes Mellitus. PERFORMED BY: [place] [address] PATHOLOGIST MICROBIOLOGICAL LAB TECHNICIAN DEMOND ESCOBAR M.D. Performed By: #### G LULS #### Point of Care testing , Glucose [Mass/Vol] 209 mg/dL Normal [facility] Comment on above: Result Comment: [facility] Glucose Reference Range is dependent on time and content of last meal. Glucose of more than 200 mg/dL in a nonstressed, ambulatory subject supports the diagnosis of Diabetes Mellitus. PERFORMED BY: [place] [address] PATHOLOGIST MICROBIOLOGICAL LAB TECHNICIAN DEMOND ESCOBAR M.D. Performed By: #### G LULS ####Point of Care testing, Hemoglobin A1c/Hemoglobin.to thierry in BloodOrdered By: Don Patel on 05-21-2024 HbA1c (Bld) [Mass fraction] Hemoglobin A1c percentage High 4.3-5.6 [facility] Comment on above: Increased risk for d iabetes: 5.7 - 6.4diabetes: >6.4glycemic control for adults with diabetes: <7.0 Magnesiumon 05-21-2024 Magnesium [Mass/Vol] 1.8 mg/dL Low 1.9-2.7 [facility] Comment on above: Result Comment: PERF ORMED BY: [facility] [address] [place] [address] PATHOLOGIST MICROBIOLOGICAL LAB TECHNICIAN DEMOND ESCOBAR M.D. Performed By: #### B MP, CBC #### [facility] [address] [place] [id number] Procalcitoninon 05-21-2024 Procalcitonin 0.44 ng/mL High 0.00-0.08 [facility] Comment on above: Order Comment: patie nt is going CT per RN GIACOMO PLACED IN CHEM--GAVE TO TECH (KP) Result Comment: A pr ocalcitonin (PCT) level [...] concentrations <2 ng/mL are obtained. Performed at: [facility] [address] [id number] Apprentice Plumber: Lyndsay Lawson MD, Phone: [phone] PERFORMED BY: [place] [address] PATHOLOGIST MICROBIOLOGICAL LAB TECHNICIAN DEMOND ESCOBAR M.D. Performed By: #### B MP, CBC #### [address] Procalcitonin [Mass/volume] in Serum or PlasmaOrdered By: Yue Lindsey on 05-21-2024 Procalcitonin [Mass/Vol] Serum procalcitonin measurement High 0.00-0.08 [facility] Comment on above: A procalcitonin (PCT ) [...] any concentrations <2 ng/mL are obtained.Performed at: [address] [id number] Director: Lyndsay Lawson MD, Phone: [phone] MARKELL with Reflexon 05-20-2024 MARKELL with Reflex Negative Normal Negative [facility] Comment on above: Order Comment: patie nt is going CT per RN GIACOMO PLACED IN CHEM--GAVE TO TECH () Result Comment: Perf ormed at: [address] [id number] Apprentice Plumber: Francisco Gonzalez PhD, Phone: [phone] Performed By: #### G LULS #### Point of Care testing , ANCA Profile (ANCA+MPO+PR3)o n 05-20-2024 Antimyeloperoxidase (MPO) Abs <0.2 Normal 0.0-0.9 [facility] Comment on above: Order Comment: patie nt is going CT per RN GIACOMO PLACED IN CHEM--GAVE TO TECH () Performed By: #### G LULS #### Point of Care testing , Atypical pANCA <1:20 Normal Neg:<1:20 [facility] Comment on above: Order Comment: patie nt is going CT per RN GIACOMO PLACED IN CHEM--GAVE TO TECH () Result Comment: The atypical pANCA pattern has been observed in a significant percentage of patients with ulcerative colitis, primary sclerosing cholangitis and autoimmune hepatitis. Performed at: [address] [id number] Apprentice Plumber: Lyndsay Lawson MD, Phone: [phone] Performed at: [address] [id number] Apprentice Plumber: Francisco Gonzalez PhD, Phone: [phone] Performed By: #### G LULS #### Point of Care testing , Cytoplasmic (C-ANCA) <1:20 Normal Neg:<1:20 [facility] Comment on above: Order Comment: patie nt is going CT per RN GIACOMO PLACED IN CHEM--GAVE TO TECH () Performed By: #### G LULS #### Point of Care testing , Perinuclear (P-ANCA) <1:20 Normal Neg:<1:20 [facility] Comment on above: Order Comment: [...] up testing of positive sera with both HI- 3 and MPO-ANCA enzyme immunoassays. As many as 5% serum samples are positive only by EIA. Ref. AM J Clin Pathol 1999;111:507-513. Performed By: #### G LULS #### Point of Care testing , Proteinase 3 (PR3) Antibodies <0.2 Normal 0.0-0.9 [facility] Comment on above: Order Comment: saurabh valadez is going CT per GRETCHEN GOODEN PLACED IN CHEM--GAVE TO TECH () Result Comment: PERF ORMED BY: [address] [place] [address] PATHOLOGIST MICROBIOLOGICAL LAB TECHNICIAN DEMOND ESCOBAR M.D. Performed By: #### G LULS #### Point of Care testing , Aerobic Cultureon 05-20-2024 Aerobic Culture Light Normal Respiratory Elin 2 Days Gram Stain Result 2+ White Blood Cells 1+ Epithelial Cells Rare Gram Positive Cocci PERFORMED BY: [facility] [address] [place] [address] PATHOLOGIST MICROBIOLOGICAL LAB TECHNICIAN DEMOND ESCOBAR M.D. Normal [facility] Comment on above: Performed By: #### G LULS #### Point of Care testing , Aerobic cultureOrdered By: Jose Eduardo Lindsey on 05-20-2024 Bacteria identified Aer cx Nom (Unsp spec) Aerobic culture [facility] Alanine aminotransferase [En zymatic activity/volume] in Serum or PlasmaOrdered By: Don Patel on 05-20-2024 ALT [Catalytic activity/Vol] Alanine aminotransferase [Enzymatic activity/volume] in Serum or Plasma [facility] Albumin [Mass/volume] in Ser um or Plasma by Bromocresol green (BCG) dye binding methoOrdered By: Don Patel on 05-20-2024 Albumin BCG dye [Mass/Vol] Albumin [Mass/volume] in Serum or Plasma by Bromocresol green (BCG) dye binding metho Low 3.5-5.7 [facility] Alkaline phosphatase [Enzyma tic activity/volume] in Serum or PlasmaOrdered By: Don Patel on 05-20-2024 ALP [Catalytic activity/Vol] Alkaline phosphatase [Enzymatic activity/volume] in Serum or Plasma 34-104 [facility] Arterial Blood Gason 025 ABG Base Excess 0.0 mmol/L Normal -3.0-3.0 [facility] Comment on above: Performed By: #### G LULS #### Point of Care testing , ABG Frac Inspired O2 65 % Normal [facility] Comment on above: Performed By: #### G LULS #### Point of Care testing , ABG Oxygen Content 5.2 mmol/L Low 6.6-9.7 [facility] Comment on above: Performed By: #### G LULS #### Point of Care testing , ABG Oxygen Saturation 97.8 % Normal 95.0-100.0 [facility] Comment on above: Performed By: #### G LULS #### Point of Care testing , ABG PCO2 31.0 mm[Hg] Low 35.0-45.0 [facility] Comment on above: Performed By: #### G LULS #### Point of Care testing , ABG PH 7.49 High 7.35-7.45 [facility] Comment on above: Performed By: #### G LULS #### Point of Care testing , ABG PO2 100.8 mm[Hg] High 80.0-100.0 [facility] Comment on above: Performed By: #### G LULS #### Point of Care testing , ABG Pressure Support 6.0 cmH20 Normal [facility] Comment on above: Performed By: #### G LULS #### Point of Care testing , CPAP 16.0 cmH20 Normal [facility] Comment on above: Performed By: #### G LULS #### Point of Care testing , Respiratory Critical Normal [facility] Comment on above: Result Comment: Crit ical Value called on: 05/20/2024 at 04:00 PERFORMED BY: [facility] [place] [address] PATHOLOGIST MICROBIOLOGICAL LAB TECHNICIAN DEMOND ESCOBAR M.D. Performed By: #### G LULS #### Point of Care testing , Set Respiratory Rate 12 Normal [facility] Comment on above: Performed By: #### G LULS #### Point of Care testing , VBG Draw Site Right Radial Normal [facility] Comment on above: Performed By: #### G LULS #### Point of Care testing , Arterial Blood GasOrdered By : Don Patel on 05-20-2024 CO2 [Moles/Vol] 24.0 mmol/L Normal 23.0-27.0 [facility] Comment on above: Performed By: #### G LULS #### Point of Care testing , HCO3 (Bld) [Moles/Vol] 23.1 mmol/L Normal 23.0-29.0 [facility] Comment on above: Performed By: #### G LULS #### Point of Care testing , Aspartate aminotransferase [ Enzymatic activity/volume] in Serum or PlasmaOrdered By: Don Patel on 05-20-2024 AST [Catalytic activity/Vol] Aspartate aminotransferase [Enzymatic activity/volume] in Serum or Plasma Low 13-39 [facility] Atypical perinuclear antineu trophil cytoplasmic antibodies measurementOrdered By: Yue Lindsey on 05-20-2024 Atypical p-ANCA <1:20 titer Neg:<1:20 [facility] Comment on above: The atypical pANCA p attern has been observed in asignificant percentage of patients with ulcerative colitis,primary sclerosing cholangitis and autoimmune hepatitis.Performed at: - [address] [id number] Director: Lyndsay Lawson MD, Phone: [phone] at: CB - [facility] [address] [id number] Director: Francisco Gonzalez PhD, Phone: [phone] B-Type Natriuretic Peptideon 05-20-2024 Natriuretic peptide B (Bld) [Mass/Vol] 2348.0 pg/mL High 5-100 [facility] Comment on above: Order Comment: saurabh nt is going CT per GRETCHEN GOODEN Result Comment: PERF ORMED BY: [facility] [address] [place] [address] PATHOLOGIST MICROBIOLOGICAL LAB TECHNICIAN DEMOND ESCOBAR M.D. Performed By: #### G ALEKSANDAR #### Point of Care testing , Bilirubin.total [Mass/volume ] in Serum or PlasmaOrdered By: Don Patel on 05-20-2024 Bilirubin [Mass/Vol] Bilirubin.total [Mass/volume] in Serum or Plasma 0.3-1.0 [facility] C Urineon 05-20-2024 Bacteria identified Cx Nom [...] Locations R1: This test was performed at: [facility], [address] [place] [address], [id number] , , Normal [facility] Comment on above: Performed By: #### [id number] #### [facility] [address] [place] [id number] C reactive protein [Mass/vol ume] in Serum or PlasmaOrdered By: Yue Lindsey on 05-20-2024 CRP [Mass/Vol] C reactive protein [Mass/volume] in Serum or Plasma High 0.0-0.5 [facility] C-Reactive Proteinon 025 C-Reactive Protein 25.3 mg/dL High 0.0-0.5 [facility] Comment on above: Order Comment: saurabh valadez is going CT per GRETCHEN GOODEN Result Comment: PERF ORMED BY: [place] [address] PATHOLOGIST MICROBIOLOGICAL LAB TECHNICIAN DEMOND ESCOBAR M.D. Performed By: #### B MP, CBC #### [address] chest wo conon 05-20-2024 CT chest wo con [facility] [place] [address] [place] [address] CT Scan Report Signed Patient: Leighton Arciniega MR#: [id number] : 1945 Acct:[id number] Age/Sex: 78 / M ADM Date: 05/20/24 Loc: Room: [address] [place] [address] Type: ADM IN Attending Dr: Clau Edwards [...] Edwards Jr., D.OAnisa05/20/2024 1:14 PM Dictation Location: [facility]18 Transcribed By: [facility] 05/20/24 1314 Dictated By: Swapnil Edwards Jr, DO 05/20/24 1312 Signed By: 05/20/24 1314 Normal [facility] Complete Blood Count Auto Di ffon 05-20-2024 Basophils (Bld) [#/Vol] 0.1 10*3/uL Normal 0.0-0.2 [facility] Comment on above: Result Comment: PERF ORMED BY: [address] [place] [address] PATHOLOGIST MICROBIOLOGICAL LAB TECHNICIAN DEMOND ESCOBAR M.D. Performed By: #### G LULS #### Point of Care testing , Basophils/100 WBC (Bld) 0.6 % Normal . [facility] Comment on above: Performed By: #### G LULS #### Point of Care testing , Eosinophils (Bld) [#/Vol] 0.0 10*3/uL Normal 0.0-0.45 [facility] Comment on above: Performed By: #### G LULS #### Point of Care testing , Eosinophils/100 WBC (Bld) 0.2 % Normal . [facility] Comment on above: Performed By: #### G LULS #### Point of Care testing , Erythrocyte distribution width (RBC) [Ratio] 16.4 % High 12.0-14.8 [facility] Comment on above: Performed By: #### G LULS #### Point of Care testing , Hematocrit (Bld) [Volume fraction] 22.1 % Low 38.8-50.0 [facility] Comment on above: Performed By: #### G LULS #### Point of Care testing , Hemoglobin (Bld) [Mass/Vol] 7.6 g/dL Low 13.0-17.0 [facility] Comment on above: Performed By: #### G LULS #### Point of Care testing , Lymphocytes (Bld) [#/Vol] 0.8 10*3/uL Low 1.00-4.8 [facility] Comment on above: Performed By: #### G LULS #### Point of Care testing , Lymphocytes/100 WBC (Bld) 8.3 % Normal . [facility] Comment on above: Performed By: #### G LULS #### Point of Care testing , MCH (RBC) [Entitic mass] 32.4 pg Normal 27.5-35.2 [facility] Comment on above: Performed By: #### G LULS #### Point of Care testing , MCV (RBC) [Entitic vol] 94.3 fL Normal 83.5-101 [facility] Comment on above: Performed By: #### G LULS #### Point of Care testing , Mean Corpuscular HGB Conc 34.4 g/dL Normal 32.5-35.6 [facility] Comment on above: Performed By: #### G LULS #### Point of Care testing , Monocytes (Bld) [#/Vol] 0.6 10*3/uL Normal 0.0-0.8 [facility] Comment on above: Performed By: #### G LULS #### Point of Care testing , Monocytes/100 WBC (Bld) 6.5 % Normal . [facility] Comment on above: Performed By: #### G LULS #### Point of Care testing , Neutrophils (Bld) [#/Vol] 7.9 10*3/uL High 1.8-7.7 [facility] Comment on above: Performed By: #### G LULS #### Point of Care testing , Neutrophils/100 WBC (Bld) 84.4 % Normal . [facility] Comment on above: Performed By: #### G LULS #### Point of Care testing , NRBC% 0.0 /100{WBC} Normal 0-0.5 [facility] Comment on above: Performed By: #### G SLOANLS #### Point of Care testing , Platelet mean volume (Bld) [Entitic vol] 7.0 fL Normal 6.6-10.1 [facility] Comment on above: Performed By: #### G SLOANLS #### Point of Care testing , Platelets (Bld) [#/Vol] 148 10*3/uL Low 150-450 [facility] Comment on above: Performed By: #### G SLOANLS #### Point of Care testing , RBC (Bld) [#/Vol] 2.34 10*6/uL Low 3.90-5.60 [facility] Comment on above: Performed By: #### G SLOANLS #### Point of Care testing , WBC (Bld) [#/Vol] 9.4 10*3/uL Normal 4.1-10.5 [facility] Comment on above: Performed By: #### Luli LISALS #### Point of Care testing , Comprehensive Metabolic Pane marshall 05-20-2024 Albumin [Mass/Vol] 2.7 g/dL Low 3.5-5.7 [facility] Comment on above: Performed By: #### Luli HUERTAS #### Point of Care testing , Albumin/Globulin [Mass ratio] 1.2 {ratio} Normal [facility] Comment on above: Performed By: #### Luli LISALS #### Point of Care testing , ALP [Catalytic activity/Vol] 52 U/L Normal 34-104 [facility] Comment on above: Performed By: #### Luli LISALS #### Point of Care testing , ALT [Catalytic activity/Vol] 9 U/L Normal 7-52 [facility] Comment on above: Performed By: #### Luli LISALS #### Point of Care testing , Anion gap [Moles/Vol] 13.6 mmol/L Normal 6.0-15.0 [facility] Comment on above: Performed By: #### Luli HUERTAS #### Point of Care testing , AST [Catalytic activity/Vol] 10 U/L Low 13-39 [facility] Comment on above: Performed By: #### G LULS #### Point of Care testing , Bilirubin [Mass/Vol] 0.6 mg/dL Normal 0.3-1.0 [facility] Comment on above: Performed By: #### G LULS #### Point of Care testing , Calcium [Mass/Vol] 8.1 mg/dL Low 8.6-10.3 [facility] Comment on above: Performed By: #### G LULS #### Point of Care testing , Chloride [Moles/Vol] 102 mmol/L Normal 98-107 [facility] Comment on above: Performed By: #### G LULS #### Point of Care testing , CO2 [Moles/Vol] 23.0 mmol/L Normal 21.0-31.0 [facility] Comment on above: Performed By: #### G LULS #### Point of Care testing , Creatinine [Mass/Vol] 1.63 mg/dL High 0.70-1.30 [facility] Comment on above: Performed By: #### G LULS #### Point of Care testing , Creatinine Clr Calc Pharmacy 42.96 Normal [facility] Comment on above: Performed By: #### G LULS #### Point of Care testing , Estimated GFR 42.862 mL/Min Normal The [facility] Comment on above: Performed By: #### G LULS #### Point of Care testing , Globulin (S) [Mass/Vol] 2.3 g/dL Normal [facility] Comment on above: Performed By: #### G LULS #### Point of Care testing , Glucose [Mass/Vol] 165 mg/dL High 70-100 [facility] Comment on above: Result Comment: [place] Glucose Reference Range is dependent on time and content of last meal. Glucose of more than 200 mg/dL in a nonstressed, ambulatory subject supports the diagnosis of Diabetes Mellitus. ADA recommended reference range Performed By: #### G LULS #### Point of Care testing , Potassium [Moles/Vol] 3.6 mmol/L Normal 3.5-5.1 [facility] Comment on above: Performed By: #### G LULS #### Point of Care testing , Protein [Mass/Vol] 5.0 g/dL Low 6.4-8.9 [facility] Comment on above: Performed By: #### G LULS #### Point of Care testing , Sodium [Moles/Vol] 135 mmol/L Low 136-145 [facility] Comment on above: Performed By: #### G LULS #### Point of Care testing , Urea nitrogen [Mass/Vol] 45 mg/dL High 7-25 [facility] Comment on above: Performed By: #### G LULS #### Point of Care testing , Continuous positive airway p ressure Respiratory systemOrdered By: Don Patel on 05-20-2024 Continuous positive airway pressure Respiratory system Positive [facility] Erythrocyte Sedimentation Ra eufemia 05-20-2024 ESR (Bld) [Velocity] 49 mm/h High 0-19 [facility] Comment on above: Order Comment: saurabh nt is going CT per GRETCHEN GOODEN Result Comment: PERF ORMED BY: [place] [phone] PATHOLOGIST MICROBIOLOGICAL LAB TECHNICIAN DEMOND ESCOBAR M.D. Performed By: #### B MP, CBC #### [address] Erythrocyte sedimentation ra te by Photometric methodOrdered By: Yue Lindsey on 05-20-2024 ESR Photometric method (Bld) [Velocity] Erythrocyte sedimentation rate by Photometric method High 0-19 [facility] Globulin Calc (S) [Mass/Vol] Ordered By: Don Patel on 05-20-2024 Globulin (S) [Mass/Vol] Serum globulin measurement by calculation (mass/volume) [facility] Glucose Poct Glucometerson 0 05-20-2024 Commemt1 Glu2: Cleaned Meter Normal [facility] Comment on above: Result Comment: PERF ORMED BY: [place] [address] PATHOLOGIST MICROBIOLOGICAL LAB TECHNICIAN DEMOND ESCOBAR M.D. Performed By: #### G LULS #### Point of Care testing , Glucose [Mass/Vol] 300 mg/dL Normal [facility] Comment on above: Result Comment: [place] om Glucose Reference Range is dependent on time and content of last meal. Glucose of more than 200 mg/dL in a nonstressed, ambulatory subject supports the diagnosis of Diabetes Mellitus. Performed By: #### G LULS #### Point of Care testing , Commemt1 Glu2: Cleaned Meter Normal [facility] Comment on above: Result Comment: PERF ORMED BY: [place] [address] PATHOLOGIST MICROBIOLOGICAL LAB TECHNICIAN DEMOND ESCOBAR M.D. Performed By: #### G LULS #### Point of Care testing , Glucose [Mass/Vol] 258 mg/dL Normal [facility] Comment on above: Result Comment: [place] om Glucose Reference Range is dependent on [...] Cells Rare Gram Positive Cocci PERFORMED BY: [place] [address] PATHOLOGIST MICROBIOLOGICAL LAB TECHNICIAN DEMOND ESCOBAR M.D. Normal [facility] Comment on above: Performed By: #### G LULS #### Point of Care testing , Gram stain microscopyOrdered By: Yue Lindsey on 05-20-2024 Microscopic observation Gram stain Nom (Unsp spec) Gram stain microscopy [facility] Hemogram CBC Without Diffon 05-20-2024 Erythrocyte distribution width (RBC) [Ratio] 16.6 % High 12.0-14.8 [facility] Comment on above: Order Comment: saurabh nt is going CT per GRETCHEN GOODEN Performed By: #### B MP, CBC #### [address] Hematocrit (Bld) [Volume fraction] 23.7 % Low 38.8-50.0 [facility] Comment on above: Order Comment: patie nt is going CT per RN GIACOMO Performed By: #### B MP, CBC #### [address] Hemoglobin (Bld) [Mass/Vol] 8.0 g/dL Low 13.0-17.0 [facility] Comment on above: Order Comment: patie nt is going CT per RN GIACOMO Performed By: #### B MP, CBC #### [address] MCH (RBC) [Entitic mass] 32.3 pg Normal 27.5-35.2 [facility] Comment on above: Order Comment: patie nt is going CT per RN GIACOMO Performed By: #### B MP, CBC #### [address] MCV (RBC) [Entitic vol] 95.4 fL Normal 83.5-101 [facility] Comment on above: Order Comment: patie nt is going CT per RN GIACOMO Performed By: #### B MP, CBC #### [address] Mean Corpuscular HGB Conc 33.9 g/dL Normal 32.5-35.6 [facility] Comment on above: Order Comment: patie nt is going CT per RN GIACOMO Performed By: #### B MP, CBC #### [address] Platelet mean volume (Bld) [Entitic vol] 7.1 fL Normal 6.6-10.1 [facility] Comment on above: Order Comment: patie nt is going CT per RN GIACOMO Result Comment: PERF ORMED BY: [place] [address] PATHOLOGIST MICROBIOLOGICAL LAB TECHNICIAN DEMOND ESCOBAR M.D. Performed By: #### B MP, CBC #### [address] Platelets (Bld) [#/Vol] 155 10*3/uL Normal 150-450 [facility] Comment on above: Order Comment: patie nt is going CT per RN GIACOMO Performed By: #### B MP, CBC #### [address] RBC (Bld) [#/Vol] 2.48 10*6/uL Low 3.90-5.60 [facility] Comment on above: Order Comment: patie nt is going CT per RN GIACOMO Performed By: #### B MP, CBC #### [address] WBC (Bld) [#/Vol] 8.4 10*3/uL Normal 4.1-10.5 [facility] Comment on above: Order Comment: patie nt is going CT per RN GIACOMO Performed By: #### B MP, CBC #### [address] Iron [Mass/volume] in Serum or PlasmaOrdered By: Clau Edwards on 05-20-2024 Iron [Mass/Vol] Iron [Mass/volume] i n Serum or Plasma Low 50-212 [facility] Iron and TIBC Profileon % Iron Saturation 8.3 % Low 20-50 [facility] Comment on above: Performed By: #### G LULS #### Point of Care testing , Iron [Mass/Vol] 10 ug/dL Low 50-212 [facility] Comment on above: Performed By: #### G LULS #### Point of Care testing , Total Iron Binding Capacity 120 ug/dL Low 255-450 [facility] Comment on above: Performed By: #### G LULS #### Point of Care testing , Transferrin [Mass/Vol] 86 mg/dL Low 203-362 [facility] Comment on above: Result Comment: PERF ORMED BY: [place] [address] PATHOLOGIST MICROBIOLOGICAL LAB TECHNICIAN DEMOND ESCOBAR M.D. Performed By: #### G LULS #### Point of Care testing , Magnesiumon 05-20-2024 Magnesium [Mass/Vol] 1.7 mg/dL Low 1.9-2.7 [facility] Comment on above: Result Comment: PERF ORMED BY: [facility] [address] [place] [address] PATHOLOGIST MICROBIOLOGICAL LAB TECHNICIAN DEMOND ESCOBAR M.D. Performed By: #### G LULS #### Point of Care testing , Myeloperoxidase Ab [Units/vo lume] in Serum by ImmunoassayOrdered By: Yue Lindsey on 05-20-2024 Myeloperoxidase Ab IA Qn (S) Myeloperoxidase Ab [Units/volume] in Serum by Immunoassay 0.0-0.9 [facility] Natriuretic peptide B [Mass/ Vol]Ordered By: Yue Lindsey on 05-20-2024 Natriuretic peptide B (Bld) [Mass/Vol] BNP ser/plas High 5-100 [facility] No Panel InformationOrdered By: Don Patel on 05-20-2024 Arterial Blood Base Excess 0.0 mmol/L -3.0-3.0 [facility] Arterial Blood Oxygen Content 5.2 mmol/L Low 6.6-9.7 [facility] Arterial Blood Oxygen Saturation 97.8 % 95.0-100.0 [facility] Arterial Blood Partial Pressure CO2 31.0 mm[Hg] Low 35.0-45.0 [facility] Arterial Blood Partial Pressure O2 100.8 mm[Hg] High 80.0-100.0 [facility] Arterial Blood pH 7.49 High 7.35-7.45 [facility] Blood Gas Critical Value See comment [facility] Comment on above: Critical Value barber d on: 05/20/2024 at 04:00 Blood Gas Pressure Support 6.0 cmH2O [facility] Blood Gas Sample Site Right radial F [facility] Blood Gas Set Respiration Rate 12 [facility] FiO2 65 % [facility] Perinuclear antineutrophil c ytoplasmic antibody (p-ANCA) assayOrdered By: Yue Lindsey on 05-20-2024 Perinuclear ANCA (p-ANCA) Antibody <1:20 titer Neg:<1:20 [facility] Comment on above: The presence of posi tive fluorescence exhibiting P-ANCA orC-ANCA patterns alone is not specific for the diagnosis ofWegener's Granulomatosis (WG) or microscopic polyangiitis.Decisions about treatment should not be based solely onANCA IFA results. The International ANCA Group Consensusrecommends follow up testing of positive sera with both HI-3 and MPO-ANCA enzyme immunoassays. As many as 5% serumsamples are positive only by EIA. Ref. AM J Clin [id number];111:507-513. Protein [Mass/volume] in Ser um or PlasmaOrdered By: Don Patel on 05-20-2024 Protein [Mass/Vol] Protein [Mass/volume ] in Serum or Plasma Low 6.4-8.9 [facility] Proteinase 3 Ab [Units/volum e] in Serum by ImmunoassayOrdered By: Yue Lindsey on 05-20-2024 Proteinase 3 Ab IA Qn (S) Proteinase 3 Ab [Units/volume] in Serum by Immunoassay 0.0-0.9 [facility] Serum classic neutrophil cyt oplasmic antibody titer by immunofluorescenceOrdered By: Yue Lindsey on 05-20-2024 Neutrophil cytoplasmic Ab.classic IF (S) [Titer] Serum classic neutrophil cytoplasmic antibody titer by immunofluorescence Neg:<1:20 [facility] Serum or plasma albumin/glob ulin mass ratioOrdered By: Don Patel on 05-20-2024 Albumin/Globulin [Mass ratio] Serum or plasma albumin/globulin mass ratio [facility] Serum or plasma free cefurox maicol measurement (mass/volume)Ordered By: Yue Lindsey on 05-20-2024 Cefuroxime free [Mass/Vol] Serum or plasma free cefuroxime measurement (mass/volume) Negative [facility] Comment on above: Performed at: [address] [id number] Director: Francisco Gonzalez PhD, Phone: [phone] Serum or plasma iron binding capacity measurement (mass/volume)Ordered By: Clau Edwards on 05-20-2024 Iron binding capacity [Mass/Vol] Iron binding capacity [Mass/volume] in Serum or Plasma Low 255-450 [facility] Serum or plasma iron saturat ion measurement (mass fraction)Ordered By: Clau Edwards on 05-20-2024 Iron saturation [Mass fraction] Iron saturation [Mass Fraction] in Serum or Plasma Low 20-50 [facility] Stool Occult Blood (Guaiac)o n 05-20-2024 Stool Occult Blood (Guaiac) Occult Blood Negative for Occult Blood by Guaiac Methodology Reference range = Negative PERFORMED BY: [place] [address] PATHOLOGIST MICROBIOLOGICAL LAB TECHNICIAN DEMOND Bah [facility] Comment on above: Performed By: #### B MP, CBC #### [address] Stool gastrointestinal hemog lobin detectionOrdered By: Clau Edwards on 05-20-2024 Hemoglobin.gastrointes tinal Ql (Stl) Stool gastrointestinal hemoglobin detection [facility] Transferrin [Mass/volume] in Serum or PlasmaOrdered By: Clau Edwards on 05-20-2024 Transferrin [Mass/Vol] Transferrin [Mass/volume] in Serum or Plasma Low 203-362 [facility] X-ray reportOrdered By: Aaron Edwards on 05-20-2024 Study report [facility] [place] [address] [place] [address] XRay Report Signed Patient: Leighton Arciniega MR#: [id number] : 1945 Acct:[id number] Age/Sex: 78 / M ADM Date: 5 Loc: Room: [address] [place] [address] Type: ADM IN Attending Dr: Clau Edwards [...] WORSENING BILATERAL AIRSPACE DISEASE. Impression dictated by: Asif Combs Jr..OAnisa05/20/2024 8:49 AM Dictation Location: RADIO-PC-18 Transcribed By: CHEYENNE 05/20/24 0849 Dictated By: Swapnil Edwards Jr, DO 05/20/24 0848 Signed By: 05/20/24 0849 [facility] XR chest 1V portableon 05-20 XR chest 1V portable [place] [address] XRay Report Signed Patient: Leighton Arciniega MR#: [id number] : 1945 Acct:[id number] Age/Sex: 78 / M ADM Date: 05/20/24 Loc: Room: [address] [place] [address] Type: ADM IN Attending Dr: Clau Edwards [...] WORSENING BILATERAL AIRSPACE DISEASE. Impression dictated by: Asif Combs Jr..OAnisa05/20/2024 8:49 AM Dictation Location: RADIO-PC-18 Transcribed By: CHEYENNE 05/20/24 0849 Dictated By: Swapnil Edwards Jr, DO 05/20/24 0848 Signed By: 05/20/24 0849 Normal [facility] Ambulatory Visit Summaryon 0 05-18-2024 Ambulatory Visit Summary Ambulatory Visit Summary LEIGHTON ARCINEIGA :1945 Visit Date:05/18/2024 Ambulatory Visit Instructions Your Diagnosis Urinary retention BPH with urinary obstruction Cloudy urine Anticoagulated Your Care Team Attending Physician - Mica Car MD Primary Care Physician - Lori Nugent MD This Is Your Medications List allopurinol [...] Deepti Powell PA-C Where: [facility] [address] [place] [address]- You Need to Schedule the Following Appointments Follow Up with Josep SANDHU, Mica Johns, URAmanda, URO When: Where: Medications What How Much [...] bedtime) Contact (more content not included)... Normal [facility] Urine Cultureon 05-18-2024 Bacteria identified Cx Nom (U) No Growth 2 Days PERFORMED BY: [facility] [address] [place] [address] PATHOLOGIST MICROBIOLOGICAL LAB TECHNICIAN DEMOND ESCOBAR M.D. Normal [facility] Comment on above: Performed By: #### G LUARACELIS #### Point of Care testing , Urine cultureOrdered By: Carissa bettye Marker on 05-18-2024 Bacteria identified Cx Nom (U) Urine culture [facility] Urology Office/Clinic Noteon 05-18-2024 Urology Office/Clinic Note [...] d/t UR and BPH. Pt resides at [place], send meds to them. 1. Urinary retention (R33.9: Retention of urine, unspecified) - Admitted at [facility] x 4 days due to PNA, Gomez removed and discharged 04/08/24. Pt states he presented back to [facility] ER due to UR. Gomez placed, [...] recovering from double PNA and residing at [place]. Will maintain gomez until pt is discharged [...] scan, ~ 80 g). S/p Rezum by JAYLEEN 02/14/24 - 9 treatments, R side did [...] treat x 1 week 4. 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 Elevated risk of periop complications. Will need held periop, has done in the past for Rezum Follow-up With When Contact Information Mica Car MD, URL, URO Additional Instructions: Pt to call to schedule Urolift once ready Cont cath changes q4wk with nurse or ANILA Patient Education Prostatic Urethral Lift I, Maria Luz Mejia, personally scribed for Dr. Car on 05/18/2024 11:41:16. . Documentation recorded by the scribAnkita holt (more content not included)... Normal [facility] Comment on above: Result Comment: Elec tronically Signed By: Mica Car MD\.br\Date and Time Signed: 05/18/24 11:49 EST\.br\Electronically Co-Signed By: Maria Luz Mejia\.br\Date and Time Co-Signed: 05/18/24 11:41 EST Basic Metabolic Panelon 02-2 Anion gap [Moles/Vol] 9.6 mmol/L Normal 6.0-15.0 [facility] Comment on above: Performed By: #### C BC, BMP ####[place] [id number] [place] [id number] [facility] Calcium [Mass/Vol] 8.5 mg/dL Low 8.6-10.3 [facility] Comment on above: Performed By: #### C BC, BMP ####[place] [address] [place] [id number] [facility] Chloride [Moles/Vol] 103 mmol/L Normal 98-107 [facility] Comment on above: Performed By: #### C BC, BMP ####[place] [id number] [place] [address] [facility] CO2 [Moles/Vol] 33.9 mmol/L High 21.0-31.0 [facility] Comment on above: Performed By: #### C BC, BMP ####[place] [id number] [facility] Creatinine [Mass/Vol] 1.51 mg/dL High 0.70-1.30 [facility] Comment on above: Performed By: #### C BC, BMP ####[place] [id number] [facility] Creatinine Clr Calc Pharmacy 41.63 Normal [facility] Comment on above: Result Comment: PERF ORMED BY: [facility] [address] [place] [address] PATHOLOGIST MICROBIOLOGICAL LAB TECHNICIAN DEMOND ESCOBAR M.D. Performed By: #### C BC, BMP ####[place] [id number] [facility] Estimated GFR 46.982 mL/Min Normal [facility] Comment on above: Performed By: #### C BC, BMP ####[place] [address] [place] [id number] [facility] Glucose [Mass/Vol] 139 mg/dL High 70-100 [facility] Comment on above: Result Comment: [place] om Glucose Reference Range is dependent on time and content of last meal. Glucose of more than 200 mg/dL in a nonstressed, ambulatory subject supports the diagnosis of Diabetes Mellitus. ADA recommended reference range Performed By: #### C BC, BMP ####[facility] [place] [id number] [facility] Potassium [Moles/Vol] 3.5 mmol/L Normal 3.5-5.1 [facility] Comment on above: Performed By: #### C BC, BMP ####[place] [address] Sodium [Moles/Vol] 143 mmol/L Normal 136-145 [facility] Comment on above: Performed By: #### C BC, BMP ####[facility] [place] [id number] [facility] Urea nitrogen [Mass/Vol] 62 mg/dL High 7-25 [facility] Comment on above: Performed By: #### C BC, BMP ####[place] [address] [place] [id number] [facility] Basophils Auto (Bld) [#/Vol] Ordered By: Alexa Corona on 05-13-2024 Basophils (Bld) [#/Vol] Automated basophil count 0.0-0.2 [facility] Basophils/100 WBC Auto (Bld) Ordered By: Alexa Corona on 05-13-2024 Basophils/100 WBC (Bld) Automated basophil % . [facility] Calcium [Mass/volume] in Ser um or PlasmaOrdered By: Alexa Corona on 05-13-2024 Calcium [Mass/Vol] Calcium [Mass/volume ] in Serum or Plasma Low 8.6-10.3 [facility] Carbon dioxide, total [Moles /volume] in Serum or PlasmaOrdered By: Alexa Corona on 05-13-2024 CO2 [Moles/Vol] Carbon dioxide, tota l [Moles/volume] in Serum or Plasma High 21.0-31.0 [facility] Chloride [Moles/volume] in S chelo or PlasmaOrdered By: Alexa Corona on 05-13-2024 Chloride [Moles/Vol] Chloride [Moles/volume] in Serum or Plasma 98-107 [facility] Complete Blood Count Auto Di ffon 05-13-2024 Basophils (Bld) [#/Vol] 0.0 10*3/uL Normal 0.0-0.2 [facility] Comment on above: Result Comment: PERF ORMED BY: [facility] [place] [address] PATHOLOGIST MICROBIOLOGICAL LAB TECHNICIAN DEMOND ESCOBAR M.D. Performed By: #### C BC, BMP ####[address] Basophils/100 WBC (Bld) 0.3 % Normal . [facility] Comment on above: Performed By: #### C BC, BMP ####[address] Eosinophils (Bld) [#/Vol] 0.3 10*3/uL Normal 0.0-0.45 [facility] Comment on above: Performed By: #### C BC, BMP ####[address] Eosinophils/100 WBC (Bld) 5.3 % Normal . [facility] Comment on above: Performed By: #### C BC, BMP ####[address] Erythrocyte distribution width (RBC) [Ratio] 16.3 % High 12.0-14.8 [facility] Comment on above: Performed By: #### C BC, BMP ####[address] Hematocrit (Bld) [Volume fraction] 26.2 % Low 38.8-50.0 [facility] Comment on above: Performed By: #### C BC, BMP ####[address] Hemoglobin (Bld) [Mass/Vol] 9.1 g/dL Low 13.0-17.0 [facility] Comment on above: Performed By: #### C BC, BMP ####[address] Lymphocytes (Bld) [#/Vol] 1.1 10*3/uL Normal 1.00-4.8 [facility] Comment on above: Performed By: #### C BC, BMP ####[address] Lymphocytes/100 WBC (Bld) 17.8 % Normal . [facility] Comment on above: Performed By: #### C BC, BMP ####[address] MCH (RBC) [Entitic mass] 32.8 pg Normal 27.5-35.2 [facility] Comment on above: Performed By: #### C BC, BMP ####[address] MCV (RBC) [Entitic vol] 95.0 fL Normal 83.5-101 [facility] Comment on above: Performed By: #### C BC, BMP ####[address] Mean Corpuscular HGB Conc 34.6 g/dL Normal 32.5-35.6 [facility] Comment on above: Performed By: #### C BC, BMP ####[address] Monocytes (Bld) [#/Vol] 0.5 10*3/uL Normal 0.0-0.8 [facility] Comment on above: Performed By: #### C BC, BMP ####[address] Monocytes/100 WBC (Bld) 7.9 % Normal . [facility] Comment on above: Performed By: #### C BC, BMP ####[address] Neutrophils (Bld) [#/Vol] 4.3 10*3/uL Normal 1.8-7.7 [facility] Comment on above: Performed By: #### C BC, BMP ####[address] Neutrophils/100 WBC (Bld) 68.7 % Normal . [facility] Comment on above: Performed By: #### C ELIJAH, BMP ####[address] NRBC% 0.0 /100{WBC} Normal 0-0.5 [facility] Comment on above: Performed By: #### C ELIJAH, BMP ####[address] Platelet mean volume (Bld) [Entitic vol] 6.9 fL Normal 6.6-10.1 [facility] Comment on above: Performed By: #### C ELIJAH, BMP ####[address] Platelets (Bld) [#/Vol] 115 10*3/uL Low 150-450 [facility] Comment on above: Performed By: #### C ELIJAH, BMP ####[address] RBC (Bld) [#/Vol] 2.76 10*6/uL Low 3.90-5.60 [facility] Comment on above: Performed By: #### C ELIJAH, BMP ####[address] WBC (Bld) [#/Vol] 6.3 10*3/uL Normal 4.1-10.5 [facility] Comment on above: Performed By: #### C ELIJAH, BMP ####[address] Creatinine [Mass/volume] in Serum or PlasmaOrdered By: Alexa Corona on 05-13-2024 Creatinine [Mass/Vol] Creatinine [Mass/volume] in Serum or Plasma High 0.70-1.30 [facility] Eosinophils Auto (Bld) [#/Vo l]Ordered By: Alexa Corona on 05-13-2024 Eosinophils (Bld) [#/Vol] Automated eosinophil count 0.0-0.45 [facility] Eosinophils/100 WBC Auto (Bl d)Ordered By: Alexa Corona on 05-13-2024 Eosinophils/100 WBC (Bld) Automated eosinophil % . [facility] Erythrocyte distribution wid th Auto (RBC) [Ratio]Ordered By: Alexa Corona on 05-13-2024 Erythrocyte distribution width (RBC) [Ratio] Erythrocyte distribution width [Ratio] by Automated count High 12.0-14.8 [facility] Glucose Glucometer (BldC) [M ass/Vol]Ordered By: Alexa Corona on 05-13-2024 Glucose [Mass/Vol] Capillary blood glucose measurement by glucometer (mass/volume) [facility] Comment on above: Random Glucose Refer ence Range is dependent on time and content of last meal. Glucose of more than 200 mg/dL in a nonstressed, ambulatory subject supports the diagnosis of Diabetes Mellitus. Glucose Poct Glucometerson 0 05-13-2024 Glucose [Mass/Vol] 379 mg/dL Normal [facility] Comment on above: Result Comment: [place] om Glucose Reference Range is dependent on time and content of last meal. Glucose of more than 200 mg/dL in a nonstressed, ambulatory subject supports the diagnosis of Diabetes Mellitus. PERFORMED BY: [place] [address] PATHOLOGIST MICROBIOLOGICAL LAB TECHNICIAN DEMOND ESCOBAR M.D. Performed By: #### B MP, CBC #### [address] Glucose [Mass/volume] in Ser um or PlasmaOrdered By: Alexa Corona on 05-13-2024 Glucose [Mass/Vol] Glucose [Mass/volume ] in Serum or Plasma High 70-100 [facility] Comment on above: ADA recommended refe rence rangeRandom Glucose Reference Range is dependent on time and content of last meal. Glucose of more than 200 mg/dL in a nonstressed, ambulatory subject supports the diagnosis of Diabetes Mellitus. Hematocrit Auto (Bld) [Volum e fraction]Ordered By: Alexa Corona on 05-13-2024 Hematocrit (Bld) [Volume fraction] Hematocrit [Volume Fraction] of Blood by Automated count Low 38.8-50.0 [facility] Hemoglobin [Mass/volume] in BloodOrdered By: Alexa Corona on 05-13-2024 Hemoglobin (Bld) [Mass/Vol] Hemoglobin [Mass/volume] in Blood Low 13.0-17.0 [facility] Leukocytes [#/volume] correc gabrielle for nucleated erythrocytes in Blood by Automated counOrdered By: Alexa Corona on 05-13-2024 WBC corrected for nucl RBC Auto (Bld) [#/Vol] Leukocytes [#/volume] corrected for nucleated erythrocytes in Blood by Automated coun 4.1-10.5 [facility] Lymphocytes Auto (Bld) [#/Vo l]Ordered By: Alexa Corona on 05-13-2024 Lymphocytes (Bld) [#/Vol] Lymphocytes [#/volume] in Blood by Automated count 1.00-4.8 [facility] Lymphocytes/100 WBC Auto (Bl d)Ordered By: Alexa Corona on 05-13-2024 Lymphocytes/100 WBC (Bld) Lymphocytes/100 leukocytes in Blood by Automated count . [facility] MCH Auto (RBC) [Entitic mass ]Ordered By: Alexa Corona on 05-13-2024 MCH (RBC) [Entitic mass] MCH [Entitic mass] by Automated count 27.5-35.2 [facility] MCHC Auto (RBC) [Mass/Vol]Or dered By: Alexa Corona on 05-13-2024 MCHC (RBC) [Mass/Vol] MCHC [Mass/volume] by Automated count 32.5-35.6 [facility] MCV Auto (RBC) [Entitic vol] Ordered By: Alexa Corona on 05-13-2024 MCV (RBC) [Entitic vol] MCV [Entitic volume] by Automated count 83.5-101 [facility] Monocytes Auto (Bld) [#/Vol] Ordered By: Alexa Corona on 05-13-2024 Monocytes (Bld) [#/Vol] Automated blood monocyte count 0.0-0.8 [facility] Monocytes/100 WBC Auto (Bld) Ordered By: Alexa Corona on 05-13-2024 Monocytes/100 WBC (Bld) Automated monocyte % . [facility] Neutrophils Auto (Bld) [#/Vo l]Ordered By: Alexa Corona on 05-13-2024 Neutrophils (Bld) [#/Vol] Neutrophils [#/volume] in Blood by Automated count 1.8-7.7 [facility] Neutrophils/100 WBC Auto (Bl d)Ordered By: Alexa Corona on 05-13-2024 Neutrophils/100 WBC (Bld) Automated neutrophil % . [facility] No Panel InformationOrdered By: Alexa Corona on 05-13-2024 Estimated GFR (CKD-EPI) 46.982 mL/Min [facility] Pharmacy Creatinine Clearance (Chem 41.63 [facility] Nucleated erythrocytes [Pres ence] in Blood by Automated countOrdered By: Alexa Corona on 05-13-2024 Nucleated RBC Auto Ql (Bld) Nucleated erythrocytes [Presence] in Blood by Automated count 0-0.5 [facility] Platelet mean volume Auto (B ld) [Entitic vol]Ordered By: Alexa Corona on 05-13-2024 Platelet mean volume (Bld) [Entitic vol] Platelet mean volume [Entitic volume] in Blood by Automated count 6.6-10.1 [facility] Platelets Auto (Bld) [#/Vol] Ordered By: Alexa Corona on 05-13-2024 Platelets (Bld) [#/Vol] Platelets [#/volume] in Blood by Automated count Low 150-450 [facility] Potassium [Moles/volume] in Serum or PlasmaOrdered By: Alexa Corona on 05-13-2024 Potassium [Moles/Vol] Potassium [Moles/volume] in Serum or Plasma 3.5-5.1 [facility] RBC Auto (Bld) [#/Vol]Ordere d By: Alexa Corona on 05-13-2024 RBC (Bld) [#/Vol] Erythrocytes [#/volume] in Blood by Automated count Low 3.90-5.60 [facility] Serum or plasma anion gap de terminationOrdered By: Alexa Corona on 05-13-2024 Anion gap [Moles/Vol] Serum or plasma an ion gap determination 6.0-15.0 [facility] Sodium [Moles/volume] in Ser um or PlasmaOrdered By: Alexa Corona on 05-13-2024 Sodium [Moles/Vol] Sodium [Moles/volume ] in Serum or Plasma 136-145 [facility] Urea nitrogen [Mass/volume] in Serum or PlasmaOrdered By: Alexa Corona on 05-13-2024 Urea nitrogen [Mass/Vol] Urea nitrogen [Mass/volume] in Serum or Plasma High 7-25 [facility] WBC Auto (Bld) [#/Vol]Ordere d By: Alexa Corona on 05-13-2024 WBC (Bld) [#/Vol] Leukocytes [#/volume ] in Blood by Automated count 4.1-10.5 [facility] Basic Metabolic Panelon 04-23 Anion gap [Moles/Vol] 9.2 mmol/L Normal 6.0-15.0 [facility] Comment on above: Performed By: #### B MP, CBC #### [address] Calcium [Mass/Vol] 8.6 mg/dL Normal 8.6-10.3 [facility] Comment on above: Performed By: #### B MP, CBC #### [facility] [address] Chloride [Moles/Vol] 103 mmol/L Normal 98-107 [facility] Comment on above: Performed By: #### B MP, CBC #### [facility] [address] [place] [address] [place] CO2 [Moles/Vol] 34.1 mmol/L High 21.0-31.0 [facility] Comment on above: Performed By: #### B MP, CBC #### [facility] [address] [place] [id number] [place] Creatinine [Mass/Vol] 1.85 mg/dL High 0.70-1.30 [facility] Comment on above: Performed By: #### B MP, CBC #### [facility] [address] [place] [id number] [place] Creatinine Clr Calc Pharmacy 33.98 Normal [facility] Comment on above: Result Comment: PERF ORMED BY: [place] [address] PATHOLOGIST MICROBIOLOGICAL LAB TECHNICIAN DEMOND ESCOBAR M.D. Performed By: #### B MP, CBC #### [address] Estimated GFR 36.821 mL/Min Normal [facility] Comment on above: Performed By: #### B MP, CBC #### [address] Glucose [Mass/Vol] 48 mg/dL Off scale low 70-100 [facility] Comment on above: Result Comment: Crit ical Result Called to and read back by: SAM TIPTON at: 05/12/2024 06:23:44 by: Random Glucose Reference Range is dependent on time and content of last meal. Glucose of more than 200 mg/dL in a nonstressed, ambulatory subject supports the diagnosis of Diabetes Mellitus. ADA recommended reference range Performed By: #### B MP, CBC #### [address] Potassium [Moles/Vol] 3.3 mmol/L Low 3.5-5.1 [facility] Comment on above: Performed By: #### B MP, CBC #### [address] Sodium [Moles/Vol] 143 mmol/L Normal 136-145 [facility] Comment on above: Performed By: #### B MP, CBC #### [address] Urea nitrogen [Mass/Vol] 75 mg/dL High 7-25 [facility] Comment on above: Performed By: #### B MP, CBC #### [address] Complete Blood Count Auto Di ffon 05-12-2024 Basophils (Bld) [#/Vol] 0.0 10*3/uL Normal 0.0-0.2 [facility] Comment on above: Result Comment: PERF ORMED BY: [place] [address] PATHOLOGIST MICROBIOLOGICAL LAB TECHNICIAN DEMOND ESCOBAR M.D. Performed By: #### B MP, CBC #### [address] Basophils/100 WBC (Bld) 0.6 % Normal . [facility] Comment on above: Performed By: #### B MP, CBC #### [address] Eosinophils (Bld) [#/Vol] 0.3 10*3/uL Normal 0.0-0.45 [facility] Comment on above: Performed By: #### B MP, CBC #### [address] Eosinophils/100 WBC (Bld) 4.5 % Normal . [facility] Comment on above: Performed By: #### B MP, CBC #### [address] Erythrocyte distribution width (RBC) [Ratio] 16.7 % High 12.0-14.8 [facility] Comment on above: Performed By: #### B MP, CBC #### [address] Hematocrit (Bld) [Volume fraction] 26.9 % Low 38.8-50.0 [facility] Comment on above: Performed By: #### B MP, CBC #### [address] Hemoglobin (Bld) [Mass/Vol] 9.1 g/dL Low 13.0-17.0 [facility] Comment on above: Performed By: #### B MP, CBC #### [address] Lymphocytes (Bld) [#/Vol] 1.0 10*3/uL Normal 1.00-4.8 [facility] Comment on above: Performed By: #### B MP, CBC #### [address] [place] [address] [place] Lymphocytes/100 WBC (Bld) 16.4 % Normal . [facility] Comment on above: Performed By: #### B MP, CBC #### [address] MCH (RBC) [Entitic mass] 31.8 pg Normal 27.5-35.2 [facility] Comment on above: Performed By: #### B MP, CBC #### [address] MCV (RBC) [Entitic vol] 93.9 fL Normal 83.5-101 [facility] Comment on above: Performed By: #### B MP, CBC #### [address] Mean Corpuscular HGB Conc 33.8 g/dL Normal 32.5-35.6 [facility] Comment on above: Performed By: #### B MP, CBC #### [address] Monocytes (Bld) [#/Vol] 0.4 10*3/uL Normal 0.0-0.8 [facility] Comment on above: Performed By: #### B MP, CBC #### [address] Monocytes/100 WBC (Bld) 6.8 % Normal . [facility] Comment on above: Performed By: #### B MP, CBC #### [address] Neutrophils (Bld) [#/Vol] 4.3 10*3/uL Normal 1.8-7.7 [facility] Comment on above: Performed By: #### B MP, CBC #### [address] Neutrophils/100 WBC (Bld) 71.7 % Normal . [facility] Comment on above: Performed By: #### B MP, CBC #### [address] NRBC% 0.1 /100{WBC} Normal 0-0.5 [facility] Comment on above: Performed By: #### B MP, CBC #### [address] Platelet mean volume (Bld) [Entitic vol] 6.8 fL Normal 6.6-10.1 [facility] Comment on above: Performed By: #### B MP, CBC #### [address] Platelets (Bld) [#/Vol] 115 10*3/uL Low 150-450 [facility] Comment on above: Performed By: #### B MP, CBC #### [address] RBC (Bld) [#/Vol] 2.87 10*6/uL Low 3.90-5.60 [facility] Comment on above: Performed By: #### B MP, CBC #### [address] WBC (Bld) [#/Vol] 6.1 10*3/uL Normal 4.1-10.5 [facility] Comment on above: Performed By: #### B MP, CBC #### [address] Glucose Poct Glucometerson 0 2- Glucose [Mass/Vol] 383 mg/dL Normal [facility] Comment on above: Result Comment: [facility] Glucose Reference Range is dependent on time and content of last meal. Glucose of more than 200 mg/dL in a nonstressed, ambulatory subject supports the diagnosis of Diabetes Mellitus. PERFORMED BY: [place] [address] PATHOLOGIST MICROBIOLOGICAL LAB TECHNICIAN DEMOND ESCOBAR M.D. Performed By: #### B MP, CBC #### [address] Glucose [Mass/Vol] 287 mg/dL Normal [facility] Comment on above: Result Comment: [facility] Glucose Reference Range is dependent on time and content of last meal. Glucose of more than 200 mg/dL in a nonstressed, ambulatory subject supports the diagnosis of Diabetes Mellitus. PERFORMED BY: [place] [address] PATHOLOGIST MICROBIOLOGICAL LAB TECHNICIAN DEMOND ESCOBAR M.D. Performed By: #### G LULS ####Point of Care testing, Glucose [Mass/Vol] 214 mg/dL Normal [facility] Comment on above: Result Comment: [place] Glucose Reference Range is dependent on time and content of last meal. Glucose of more than 200 mg/dL in a nonstressed, ambulatory subject supports the diagnosis of Diabetes Mellitus. PERFORMED BY: [place] [address] PATHOLOGIST MICROBIOLOGICAL LAB TECHNICIAN DEMOND ESCOBAR M.D. Performed By: #### B MP, CBC #### [address] Glucose [Mass/Vol] 91 mg/dL Normal [facility] Comment on above: Result Comment: [place] Glucose Reference Range is dependent on time and content of last meal. Glucose of more than 200 mg/dL in a nonstressed, ambulatory subject supports the diagnosis of Diabetes Mellitus. PERFORMED BY: [place] [address] PATHOLOGIST MICROBIOLOGICAL LAB TECHNICIAN DEMOND ESCOBAR M.D. Performed By: #### G LULS ####Point of Care testing, Glucose [Mass/Vol] 63 mg/dL Normal [facility] Comment on above: Result Comment: [place] Glucose Reference Range is dependent on time and content of last meal. Glucose of more than 200 mg/dL in a nonstressed, ambulatory subject supports the diagnosis of Diabetes Mellitus. PERFORMED BY: [place] [address] PATHOLOGIST MICROBIOLOGICAL LAB TECHNICIAN DEMOND ESCOBAR M.D. Performed By: #### B MP, CBC #### [address] Commemt1 Glu2: Cleaned Meter Normal [facility] Comment on above: Result Comment: PERF ORMED BY: [place] [address] PATHOLOGIST MICROBIOLOGICAL LAB TECHNICIAN DEMOND ESCOBAR M.D. Performed By: #### B MP, CBC #### [address] Glucose [Mass/Vol] 93 mg/dL Normal [facility] Comment on above: Result Comment: [place] Glucose Reference Range is dependent on time and content of last meal. Glucose of more than 200 mg/dL in a nonstressed, ambulatory subject supports the diagnosis of Diabetes Mellitus. Performed By: #### B MP, CBC #### [address] No Panel InformationOrdered By: Alexa Corona on 05-12-2024 Bedside Glucose Comment Glu2: cleaned meter [facility] X-ray reportOrdered By: Simone Chakraborty on 05-12-2024 Study report [facility] [place] [address] [place] [address] XRay Report Signed Patient: Leighton Arciniega MR#: [id number] : 1945 Acct:[id number] Age/Sex: 78 / M ADM Date: 5 Loc: Room: [address] [place] [address] Type: ADM IN Attending Dr: Alexa Corona [...] Benton Chakraborty M.D.05/12/2024 9:06 AM Dictation Location: RADIO-PC-16 Transcribed By: [place] 05/12/24905 Dictated By: Benton Chakraborty DO 05/12/24903 Signed By: 05/12/24905 [facility] XR chest 1V portableon 05-12 XR chest 1V portable [facility] [place] [address] [place] [address] XRay Report Signed Patient: Leighton Arciniega MR#: [id number] : 1945 Acct:[id number] Age/Sex: 78 / M ADM Date: 05/09/24 Loc: Room: [address] [place] [address] Type: ADM IN Attending Dr: Alexa Corona [...] Benton Chakraborty M.D.05/12/2024 9:06 AM Dictation Location: RADIO-PC-16 Transcribed By: [place] 05/12/24905 Dictated By: Benton Chakraborty DO 05/12/24903 Signed By: 05/12/24905 Normal [facility] Basic Metabolic Panelon 04-23 Anion gap [Moles/Vol] 11.5 mmol/L Normal 6.0-15.0 [facility] Comment on above: Performed By: #### B MP, CBC ####[facility] [id number] Calcium [Mass/Vol] 9.2 mg/dL Normal 8.6-10.3 [facility] Comment on above: Performed By: #### B MP, CBC ####[address] Chloride [Moles/Vol] 101 mmol/L Normal 98-107 [facility] Comment on above: Performed By: #### B MP, CBC ####[address] CO2 [Moles/Vol] 32.9 mmol/L High 21.0-31.0 [facility] Comment on above: Performed By: #### B MP, CBC ####[address] Creatinine [Mass/Vol] 2.31 mg/dL High 0.70-1.30 [facility] Comment on above: Performed By: #### B MP, CBC ####[address] Creatinine Clr Calc Pharmacy 29.40 Normal [facility] Comment on above: Result Comment: PERF ORMED BY: [facility] [address] [facility] [place] [address] PATHOLOGIST MICROBIOLOGICAL LAB TECHNICIAN DEMOND ESCOBAR M.D. Performed By: #### B MP, CBC ####[address] Estimated GFR 28.208 mL/Min Normal [facility] Comment on above: Performed By: #### B MP, CBC ####[address] Glucose [Mass/Vol] 57 mg/dL Low 70-100 [facility] Comment on above: Result Comment: [place] Glucose Reference Range is dependent on time and content of last meal. Glucose of more than 200 mg/dL in a nonstressed, ambulatory subject supports the diagnosis of Diabetes Mellitus. ADA recommended reference range Performed By: #### B MP, CBC ####[address] Potassium [Moles/Vol] 3.4 mmol/L Low 3.5-5.1 [facility] Comment on above: Performed By: #### B MP, CBC ####[address] Sodium [Moles/Vol] 142 mmol/L Significant change down 136-145 [facility] Comment on above: Performed By: #### B MP, CBC ####[address] Urea nitrogen [Mass/Vol] 87 mg/dL High 7-25 [facility] Comment on above: Performed By: #### B MP, CBC ####[address] Complete Blood Count Auto Di ffon 05-11-2024 Basophils (Bld) [#/Vol] 0.0 10*3/uL Normal 0.0-0.2 [facility] Comment on above: Result Comment: PERF ORMED BY: [facility] [address] [place] [address] PATHOLOGIST MICROBIOLOGICAL LAB TECHNICIAN DEMOND ESCOBAR M.D. Performed By: #### B MP, CBC ####[address] Basophils/100 WBC (Bld) 0.1 % Normal . [facility] Comment on above: Performed By: #### B MP, CBC ####[address] Eosinophils (Bld) [#/Vol] 0.2 10*3/uL Normal 0.0-0.45 [facility] Comment on above: Performed By: #### B MP, CBC ####[address] Eosinophils/100 WBC (Bld) 3.3 % Normal . [facility] Comment on above: Performed By: #### B MP, CBC ####[address] Erythrocyte distribution width (RBC) [Ratio] 16.7 % High 12.0-14.8 [facility] Comment on above: Performed By: #### B MP, CBC ####[address] Hematocrit (Bld) [Volume fraction] 29.6 % Low 38.8-50.0 [facility] Comment on above: Performed By: #### B MP, CBC ####[address] Hemoglobin (Bld) [Mass/Vol] 10.1 g/dL Low 13.0-17.0 [facility] Comment on above: Performed By: #### B MP, CBC ####[address] Lymphocytes (Bld) [#/Vol] 0.8 10*3/uL Low 1.00-4.8 [facility] Comment on above: Performed By: #### B MP, CBC ####[address] Lymphocytes/100 WBC (Bld) 11.7 % Normal . [facility] Comment on above: Performed By: #### B MP, CBC ####[address] MCH (RBC) [Entitic mass] 32.2 pg Normal 27.5-35.2 [facility] Comment on above: Performed By: #### B MP, CBC ####[address] MCV (RBC) [Entitic vol] 94.5 fL Normal 83.5-101 [facility] Comment on above: Performed By: #### B MP, CBC ####[address] Mean Corpuscular HGB Conc 34.1 g/dL Normal 32.5-35.6 [facility] Comment on above: Performed By: #### B MP, CBC ####[address] Monocytes (Bld) [#/Vol] 0.5 10*3/uL Normal 0.0-0.8 [facility] Comment on above: Performed By: #### B MP, CBC ####[address] Monocytes/100 WBC (Bld) 6.8 % Normal . [facility] Comment on above: Performed By: #### B MP, CBC ####[address] Neutrophils (Bld) [#/Vol] 5.2 10*3/uL Normal 1.8-7.7 [facility] Comment on above: Performed By: #### B MP, CBC ####[address] Neutrophils/100 WBC (Bld) 78.1 % Normal . [facility] Comment on above: Performed By: #### B MP, CBC ####[address] NRBC% 0.1 /100{WBC} Normal 0-0.5 [facility] Comment on above: Performed By: #### B MP, CBC ####[address] Platelet mean volume (Bld) [Entitic vol] 6.5 fL Low 6.6-10.1 [facility] Comment on above: Performed By: #### B MP, CBC ####[address] Platelets (Bld) [#/Vol] 129 10*3/uL Low 150-450 [facility] Comment on above: Performed By: #### B MP, CBC ####[address] RBC (Bld) [#/Vol] 3.13 10*6/uL Low 3.90-5.60 [facility] Comment on above: Performed By: #### B MP, CBC ####[address] WBC (Bld) [#/Vol] 6.6 10*3/uL Normal 4.1-10.5 [facility] Comment on above: Performed By: #### B MP, CBC ####[facility] [id number] [place] [id number] [facility] echo transthoracicon [facility] echo transthoracic [facility] [place] [address] [place] [address] Echocardiogram Signed Patient: Leighton Arciniega MR#: [id number] : 1945 Acct:[id number] Age/Sex: 78 / M ADM Date: 05/09/24 Loc: Room: [address] [place] [address] Type: ADM IN Attending Dr: Alexa Corona MD Ordering Provider: Osvaldo Dickinson MD Date of Service: 05/11/24 [facility] echo transthoracic: reassess EF - [facility] wants full echo Copies to: MD Osvaldo Celeste MD Ordering Physician: Osvaldo Dickinson Height: 70 in Weight: 193 lb Performed By: GRACE Peña BSA: 2.1 m2 BP: 136/65 mmHg HR: 85 Reason For Study: reassess EF - [facility] wants full echo History: CHF, 2024 EF was 50%, 2024 EF bsq88-25% (both echos done at [place]), HTN, DM, DVT, SSS, Pacemaker, A-Fib., CKD, COPD, VIRGILIO, [place] Interpretation Summary Ejection Fraction = 20-25%. The [...] Performed (more content not included)... Normal [facility] Glucose Poct Glucometerson 0 05-11-2024 Commemt1 Glu2: Cleaned Meter Normal [facility] Comment on above: Result Comment: PERF ORMED BY: [address] [place] [address] PATHOLOGIST MICROBIOLOGICAL LAB TECHNICIAN DEMOND ESCOBAR M.D. Performed By: #### G LULS ####Point of Care testing, Glucose [Mass/Vol] 218 mg/dL Normal [facility] Comment on above: Result Comment: [place] Glucose Reference Range is dependent on time and content of last meal. Glucose of more than 200 mg/dL in a nonstressed, ambulatory subject supports the diagnosis of Diabetes Mellitus. Performed By: #### G LULS ####Point of Care testing, Glucose [Mass/Vol] 187 mg/dL Normal [facility] Comment on above: Result Comment: [place] om Glucose Reference Range is dependent on time and content of last meal. Glucose of more than 200 mg/dL in a nonstressed, ambulatory subject supports the diagnosis of Diabetes Mellitus. PERFORMED BY: [facility] [address] [facility] [place] [address] PATHOLOGIST MICROBIOLOGICAL LAB TECHNICIAN DEMOND ESCOBAR M.D. Performed By: #### G LULS ####Point of Care testing, Glucose [Mass/Vol] 333 mg/dL Normal [facility] Comment on above: Result Comment: [place] Glucose Reference Range is dependent on time and content of last meal. Glucose of more than 200 mg/dL in a nonstressed, ambulatory subject supports the diagnosis of Diabetes Mellitus. PERFORMED BY: [address] [place] [id number] PATHOLOGIST MICROBIOLOGICAL LAB TECHNICIAN DEMOND ESCOBAR M.D. Performed By: #### G LULS ####Point of Care testing, Commemt1 Glu2: Cleaned Meter Normal [facility] Comment on above: Result Comment: PERF ORMED BY: [place] [id number] PATHOLOGIST MICROBIOLOGICAL LAB TECHNICIAN DEMOND ESCOBAR M.D. Performed By: #### G LULS ####Point of Care testing, Glucose [Mass/Vol] 168 mg/dL Normal [facility] Comment on above: Result Comment: [place] om Glucose Reference Range is dependent on time and content of last meal. Glucose of more than 200 mg/dL in a nonstressed, ambulatory subject supports the diagnosis of Diabetes Mellitus. Performed By: #### G LULS ####Point of Care testing, Glucose [Mass/Vol] 69 mg/dL Normal [facility] Comment on above: Result Comment: [place] Glucose Reference Range is dependent on time and content of last meal. Glucose of more than 200 mg/dL in a nonstressed, ambulatory subject supports the diagnosis of Diabetes Mellitus. PERFORMED BY: [place] [address] PATHOLOGIST MICROBIOLOGICAL LAB TECHNICIAN DEMOND ESCOBAR M.D. Performed By: #### G LULS ####Point of Care testing, Commemt1 Glu2: Cleaned Meter Normal [facility] Comment on above: Result Comment: PERF ORMED BY: [place] [address] PATHOLOGIST MICROBIOLOGICAL LAB TECHNICIAN DEMOND ESCOBAR M.D. Performed By: #### G LULS #### Point of Care testing , Glucose [Mass/Vol] 80 mg/dL Normal [facility] Comment on above: Result Comment: [place] Glucose Reference Range is dependent on time and content of last meal. Glucose of more than 200 mg/dL in a nonstressed, ambulatory subject supports the diagnosis of Diabetes Mellitus. Performed By: #### G LULS #### Point of Care testing , Basic Metabolic Panelon 04-22 Anion gap [Moles/Vol] 12.6 mmol/L Normal 6.0-15.0 [facility] Comment on above: Performed By: #### G LULS #### Point of Care testing , Calcium [Mass/Vol] 8.9 mg/dL Normal 8.6-10.3 [facility] Comment on above: Performed By: #### G LULS #### Point of Care testing , Chloride [Moles/Vol] 101 mmol/L Normal 98-107 [facility] Comment on above: Performed By: #### G LULS #### Point of Care testing , CO2 [Moles/Vol] 26.6 mmol/L Normal 21.0-31.0 [facility] Comment on above: Performed By: #### G LULS #### Point of Care testing , Creatinine [Mass/Vol] 2.26 mg/dL High 0.70-1.30 [facility] Comment on above: Performed By: #### G LULS #### Point of Care testing , Creatinine Clr Calc Pharmacy 31.85 Normal [facility] Comment on above: Performed By: #### G LULS #### Point of Care testing , Estimated GFR 28.958 mL/Min Normal [facility] Comment on above: Performed By: #### G LULS #### Point of Care testing , Glucose [Mass/Vol] 131 mg/dL High 70-100 [facility] Comment on above: Result Comment: [place] Glucose Reference Range is dependent on time and content of last meal. Glucose of more than 200 mg/dL in a nonstressed, ambulatory subject supports the diagnosis of Diabetes Mellitus. ADA recommended reference range Performed By: #### G LULS #### Point of Care testing , Potassium [Moles/Vol] 4.2 mmol/L Normal 3.5-5.1 [facility] Comment on above: Performed By: #### G LULS #### Point of Care testing , Sodium [Moles/Vol] 136 mmol/L Normal 136-145 [facility] Comment on above: Performed By: #### G LULS #### Point of Care testing , Urea nitrogen [Mass/Vol] 85 mg/dL High 7-25 [facility] Comment on above: Performed By: #### G ALEKSANDAR #### Point of Care testing , Cholesterol [Mass/volume] in Serum or PlasmaOrdered By: Alexa Corona on 05-10-2024 Cholesterol [Mass/Vol] Cholesterol [Mass/volume] in Serum or Plasma Low 140-200 [facility] Comment on above: Chol less than 200 m g/dl low riskChol 201-239 mg/dl borderline riskChol 240 mg/dl and greater high risk Cholesterol in HDL [Mass/vol ume] in Serum or PlasmaOrdered By: Alexa Corona on 05-10-2024 Cholesterol in HDL [Mass/Vol] Serum or plasma high density lipoprotein (HDL) cholesterol measurement [facility] Comment on above: HDL CHOL ATP-III CLA SSIFICATION Cardiovascular RiskHDL > or equal to 60 mg/dL LOWHDL < 40 mg/dL HIGH Cholesterol in LDL Calc [Mas s/Vol]Ordered By: Alexa Corona on 05-10-2024 Cholesterol in LDL [Mass/Vol] Cholesterol in LDL [Mass/volume] in Serum or Plasma by calculation 0-100 [facility] Comment on above: LDL ATP III CLASSIFI CATIONLDL less than 100 mg/dL OptimalLDL 100-129 mg/dL Near or above optimalLDL 130-159 mg/dL Borderline highLDL 160-189 mg/dL HighLDL greater than 189 mg/dL Very high Cholesterol in VLDL Calc [Ma ss/Vol]Ordered By: Alexa Corona on 05-10-2024 Cholesterol in VLDL [Mass/Vol] Cholesterol in VLDL [Mass/volume] in Serum or Plasma by calculation [facility] Clostridioides difficile tox in B tcdB gene [Presence] in Stool by TORI with probe deteOrdered By: Alexa Corona on 05-10-2024 C. difficile toxin B tcdB gene TORI+probe Ql (Stl) Clostridioides difficile toxin B tcdB gene [Presence] in Stool by TORI with probe dete Negative [facility] Comment on above: Testing performed by RT-PCR Clostridium Difficileon 04-22 Clostridium Difficile Negative Normal Negative [facility] Comment on above: Order Comment: > or = to 3 loose/watery stools in the last 24 HRS? Y Is patient on promotility agents or tube feeding? N Result Comment: Test ing performed by RT-PCR PERFORMED BY: [address] [place] [address] PATHOLOGIST MICROBIOLOGICAL LAB TECHNICIAN DEMOND ESCOBAR M.D. Performed By: #### G LULS #### Point of Care testing , Complete Blood Count Auto Di ffon 05-10-2024 Basophils (Bld) [#/Vol] 0.1 10*3/uL Normal 0.0-0.2 [facility] Comment on above: Result Comment: PERF ORMED BY: [address] [place] [address] PATHOLOGIST MICROBIOLOGICAL LAB TECHNICIAN DEMOND ESCOBAR M.D. Performed By: #### G LULS #### Point of Care testing , Basophils/100 WBC (Bld) 0.7 % Normal . [facility] Comment on above: Performed By: #### G LULS #### Point of Care testing , Eosinophils (Bld) [#/Vol] 0.0 10*3/uL Normal 0.0-0.45 [facility] Comment on above: Performed By: #### G LULS #### Point of Care testing , Eosinophils/100 WBC (Bld) 0.5 % Normal . [facility] Comment on above: Performed By: #### G LULS #### Point of Care testing , Erythrocyte distribution width (RBC) [Ratio] 16.3 % High 12.0-14.8 [facility] Comment on above: Performed By: #### G LULS #### Point of Care testing , Hematocrit (Bld) [Volume fraction] 27.5 % Low 38.8-50.0 [facility] Comment on above: Performed By: #### G LULS #### Point of Care testing , Hemoglobin (Bld) [Mass/Vol] 9.4 g/dL Low 13.0-17.0 [facility] Comment on above: Performed By: #### G LULS #### Point of Care testing , Lymphocytes (Bld) [#/Vol] 0.6 10*3/uL Low 1.00-4.8 [facility] Comment on above: Performed By: #### G LULS #### Point of Care testing , Lymphocytes/100 WBC (Bld) 6.2 % Normal . [facility] Comment on above: Performed By: #### G LULS #### Point of Care testing , MCH (RBC) [Entitic mass] 32.5 pg Normal 27.5-35.2 [facility] Comment on above: Performed By: #### G LULS #### Point of Care testing , MCV (RBC) [Entitic vol] 94.9 fL Normal 83.5-101 [facility] Comment on above: Performed By: #### G LULS #### Point of Care testing , Mean Corpuscular HGB Conc 34.2 g/dL Normal 32.5-35.6 [facility] Comment on above: Performed By: #### G LULS #### Point of Care testing , Monocytes (Bld) [#/Vol] 0.3 10*3/uL Normal 0.0-0.8 [facility] Comment on above: Performed By: #### G LULS #### Point of Care testing , Monocytes/100 WBC (Bld) 3.3 % Normal . [facility] Comment on above: Performed By: #### G LULS #### Point of Care testing , Neutrophils (Bld) [#/Vol] 8.5 10*3/uL High 1.8-7.7 [facility] Comment on above: Performed By: #### G LULS #### Point of Care testing , Neutrophils/100 WBC (Bld) 89.3 % Normal . [facility] Comment on above: Performed By: #### G LULS #### Point of Care testing , NRBC% 0.0 /100{WBC} Normal 0-0.5 [facility] Comment on above: Performed By: #### G LULS #### Point of Care testing , Platelet mean volume (Bld) [Entitic vol] 6.8 fL Normal 6.6-10.1 [facility] Comment on above: Performed By: #### G LULS #### Point of Care testing , Platelets (Bld) [#/Vol] 124 10*3/uL Low 150-450 [facility] Comment on above: Performed By: #### G LULS #### Point of Care testing , RBC (Bld) [#/Vol] 2.90 10*6/uL Low 3.90-5.60 [facility] Comment on above: Performed By: #### G LULS #### Point of Care testing , WBC (Bld) [#/Vol] 9.5 10*3/uL Normal 4.1-10.5 [facility] Comment on above: Performed By: #### G LULS #### Point of Care testing , ECG 12 lead ECGon 05-10-2024 ECG 12 lead ECG [place] [address] Electrocardiograph Report Signed Patient: Leighton Arciniega MR#: [id number] : 1945 Acct:[id number] Age/Sex: 78 / M ADM Date: 05/09/24 Loc: Room: [address] [place] [address] Type: ADM IN Attending Dr: Alexa Corona [...] ms Ventricular-paced rhythm Confirmed by John Nettles ([id number]) on 05/10/2024 3:54:15 PM Referred By: Electronically Signed By: John Nettles Transcribed By: MUS Signed By John Nettles MD 05/10/24 1554 Normal [facility] Glucose Poct Glucometerson 0 05-10-2024 Glucose [Mass/Vol] 150 mg/dL Normal [facility] Comment on above: Result Comment: [place] Glucose Reference Range is dependent on time and content of last meal. Glucose of more than 200 mg/dL in a nonstressed, ambulatory subject supports the diagnosis of Diabetes Mellitus. PERFORMED BY: [address] [place] [address] PATHOLOGIST MICROBIOLOGICAL LAB TECHNICIAN DEMOND ESCOBAR M.D. Performed By: #### G LULS ####Point of Care testing, Glucose [Mass/Vol] 106 mg/dL Normal [facility] Comment on above: Result Comment: [place] Glucose Reference Range is dependent on time and content of last meal. Glucose of more than 200 mg/dL in a nonstressed, ambulatory subject supports the diagnosis of Diabetes Mellitus. PERFORMED BY: [address] [place] [address] PATHOLOGIST MICROBIOLOGICAL LAB TECHNICIAN DEMOND ESCOBAR M.D. Performed By: #### G LULS #### Point of Care testing , Glucose [Mass/Vol] 187 mg/dL Normal [facility] Comment on above: Result Comment: [facility] Glucose Reference Range is dependent on time and content of last meal. Glucose of more than 200 mg/dL in a nonstressed, ambulatory subject supports the diagnosis of Diabetes Mellitus. PERFORMED BY: [address] [place] [address] PATHOLOGIST MICROBIOLOGICAL LAB TECHNICIAN DEMOND ESCOBAR M.D. Performed By: #### G LULS ####Point of Care testing, Glucose [Mass/Vol] 153 mg/dL Normal [facility] Comment on above: Result Comment: [facility] Glucose Reference Range is dependent on time and content of last meal. Glucose of more than 200 mg/dL in a nonstressed, ambulatory subject supports the diagnosis of Diabetes Mellitus. PERFORMED BY: [address] [place] [address] PATHOLOGIST MICROBIOLOGICAL LAB TECHNICIAN DEMOND ESCOBAR M.D. Performed By: #### G LULS ####Point of Care testing, Lipid Panelon 05-10-2024 Cholesterol [Mass/Vol] 139 mg/dL Low 140-200 [facility] Comment on above: Result Comment: Chol less than 200 mg/dl low risk Chol 201-239 mg/dl borderline risk Chol 240 mg/dl and greater high risk Performed By: #### G LULS #### Point of Care testing , Cholesterol in HDL [Mass/Vol] 65 mg/dL Normal 23-92 [facility] Comment on above: Result Comment: HDL CHOL ATP-III CLASSIFICATION Cardiovascular Risk HDL > or equal to 60 mg/dL LOW HDL < 40 mg/dL HIGH Performed By: #### G LULS #### Point of Care testing , Cholesterol.total/Chol esterol in HDL [Mass ratio] 2.1 {ratio} Normal <5.0 [facility] Comment on above: Result Comment: PERF ORMED BY: [facility] [place] [address] PATHOLOGIST MICROBIOLOGICAL LAB TECHNICIAN DEMOND ESCOBAR M.D. Performed By: #### G LULS #### Point of Care testing , LDL Cholesterol,Calculated 63 mg/dL Normal 0-100 [facility] Comment on above: Result Comment: LDL ATP III CLASSIFICATION LDL less than 100 mg/dL Optimal LDL 100-129 mg/dL Near or above optimal LDL 130-159 mg/dL Borderline high LDL 160-189 mg/dL High LDL greater than 189 mg/dL Very high Performed By: #### G LULS #### Point of Care testing , Triglyceride w/Reflex 57 mg/dL Normal 0-149 [facility] Comment on above: Result Comment: TRIG ATP III CLASSIFICATION TRIG less than 150 mg/dL Normal TRIG 150-199 mg/dL Borderline high TRIG 200-500 mg/dL High TRIG greater than 500 mg/dL Very high Standard traceable to the Center for Disease Conrtrol and Prevention (CDC) test method. Performed By: #### G LULS #### Point of Care testing , VLDL CHOLESTEROL 11 mg/dL Normal [facility] Comment on above: Performed By: #### G LULS #### Point of Care testing , Serum or plasma total choles terol/high density lipoprotein (HDL) cholesterol mass ratOrdered By: Alexa Corona on 05-10-2024 Cholesterol.total/Chol esterol in HDL [Mass ratio] Serum or plasma total cholesterol/high density lipoprotein (HDL) cholesterol mass rat <5.0 [facility] Triglyceride [Mass/volume] i n Serum or PlasmaOrdered By: Alexa Corona on 05-10-2024 Triglyceride [Mass/Vol] Triglyceride [Mass/volume] in Serum or Plasma 0-149 [facility] Comment on above: TRIG ATP III CLASSIF ICATIONTRIG less than 150 mg/dL NormalTRIG 150-199 mg/dL Borderline highTRIG 200-500 mg/dL High TRIG greater than 500 mg/dL Very highStandard traceable to the Center for Disease Conrtrol and Prevention (CDC) test method. Troponin I High Sensitivityo n 05-10-2024 Troponin I High Sensitivity 47 High 0-20 [facility] Comment on above: Result Comment: The Troponin units of report have been changed to meet the Chest Pain Accreditation requirement, element EC5.M1l2. Troponin units are changed from pg/ml to ng/L. Also, the decimal is removed and results are in whole numbers. PERFORMED BY: [facility] [address] [place] [address] PATHOLOGIST MICROBIOLOGICAL LAB TECHNICIAN DEMOND ESCOBAR M.D. Performed By: #### G LULS #### Point of Care testing , Troponin I High Sensitivity 46 High 0-20 [facility] Comment on above: Result Comment: The Troponin units of report have been changed to meet the Chest Pain Accreditation requirement, element EC5.M1l2. Troponin units are changed from pg/ml to ng/L. Also, the decimal is removed and results are in whole numbers. PERFORMED BY: [facility] [address] [place] [address] PATHOLOGIST MICROBIOLOGICAL LAB TECHNICIAN DEMOND ESCOBAR M.D. Performed By: #### H S TROP ####[facility] [place] [id number] [facility] Troponin I.cardiac [Mass/vol ume] in Serum or Plasma by Detection limit <= 0.01 ng/Ordered By: Alexa Corona on 05-10-2024 Troponin I.cardiac DL <= 0.01 ng/mL [Mass/Vol] Troponin I.cardiac [Mass/volume] in Serum or Plasma by Detection limit <= 0.01 ng/ High 0-20 [facility] Comment on above: The Troponin units o f report have been changed to meet the Chest Pain Accreditation requirement, element EC5.M1l2. Troponin units are changed from pg/ml to ng/L. Also, the decimal is removed and results are in whole numbers. B-Type Natriuretic Peptideon 05-09-2024 Natriuretic peptide B (Bld) [Mass/Vol] 1940.0 pg/mL High 5-100 [facility] Comment on above: Order Comment: Comme nt add Result Comment: PERF ORMED BY: [place] [address] PATHOLOGIST MICROBIOLOGICAL LAB TECHNICIAN DEMOND ESCOBAR M.D. Performed By: #### B SET DESIGNER ####[facility] [id number] ECG 12 lead ECGon 05-09-2024 ECG 12 lead ECG [facility] [place] [address] [place] [address] Electrocardiograph Report Signed Patient: Leighton Arciniega MR#: [id number] : 1945 Acct:[id number] Age/Sex: 78 / M ADM Date: 05/09/24 Loc: Room: [address] [place] [address] Type: ADM IN Attending Dr: Alexa Corona [...] ms Ventricular-paced rhythm Confirmed by John Nettles ([id number]) on 05/10/2024 3:51:11 PM Referred By: Electronically Signed By: John Nettles Transcribed By: MUS Signed By John Nettles MD 05/10/24 1551 Normal [facility] Glucose Poct Glucometerson 0 05-09-2024 Glucose [Mass/Vol] 108 mg/dL Normal [facility] Comment on above: Result Comment: [facility] Glucose Reference Range is dependent on time and content of last meal. Glucose of more than 200 mg/dL in a nonstressed, ambulatory subject supports the diagnosis of Diabetes Mellitus. PERFORMED BY: [address] [place] [address] PATHOLOGIST MICROBIOLOGICAL LAB TECHNICIAN DEMOND ESCOBAR M.D. Performed By: #### G LULS ####Point of Care testing, Magnesiumon 05-09-2024 Magnesium [Mass/Vol] 2.1 mg/dL Normal 1.9-2.7 [facility] Comment on above: Order Comment: Comme nt add Result Comment: PERF ORMED BY: [address] [place] [address] PATHOLOGIST MICROBIOLOGICAL LAB TECHNICIAN DEMOND ESCOBAR M.D. Performed By: #### G LULS #### Point of Care testing , Magnesium [Mass/volume] in S chelo or PlasmaOrdered By: Alexa Corona on 05-09-2024 Magnesium [Mass/Vol] Magnesium [Mass/volume] in Serum or Plasma 1.9-2.7 [facility] Natriuretic peptide B [Mass/ Vol]Ordered By: Alexa Corona on 05-09-2024 Natriuretic peptide B (Bld) [Mass/Vol] BNP ser/plas High 5-100 [facility] Troponin I High Sensitivityo n 05-09-2024 Troponin I High Sensitivity 42 High 0-20 [facility] Comment on above: Result Comment: The Troponin units of report have been changed to meet the Chest Pain Accreditation requirement, element EC5.M1l2. Troponin units are changed from pg/ml to ng/L. Also, the decimal is removed and results are in whole numbers. PERFORMED BY: [address] [place] [address] PATHOLOGIST MICROBIOLOGICAL LAB TECHNICIAN DEMOND ESCOBAR M.D. Performed By: #### G LULS #### Point of Care testing , X-ray reportOrdered By: Noe Pitts on 05-09-2024 Study report [facility] [address] [address] XRay Report Signed Patient: Leighton Arciniega MR#: [id number] : 1945 Acct:[id number] Age/Sex: 78 / M ADM Date: 5 Loc: Room: [address] [place] [address] Type: ADM IN Attending Dr: Devan Drake [...] Noe Pitts M.D.05/09/2024 10:26 PM Dictation Location: [place] [address] Transcribed By: [facility] 05/09/242225 Dictated By: Noe Pitts II, MD 05/09/242223 Signed By: 05/09/242225 [facility] Work Phone: XR chest 2V*on 05-09-2024 XR chest 2V* [facility] [address] [address] XRay Report Signed Patient: Leighton Arciniega MR#: [id number] : 1945 Acct:[id number] Age/Sex: 78 / M ADM Date: 05/09/24 Loc: Room: [address] [place] [address] Type: ADM IN Attending Dr: Devan Drake [...] Noe Pitts M.D.05/09/2024 10:26 PM Dictation Location: [place] [address] Transcribed By: [facility] 05/09/242225 Dictated By: Noe Pitts II, MD 05/09/242223 Signed By: 05/09/242225 Normal [facility] Ambulatory Visit Summaryon 0 04-26-2024 Ambulatory Visit Summary Ambulatory Visit Summary SUZELEIGHTON Tyrese :1945 Visit Date:04/26/2024 Ambulatory Visit Instructions Your Diagnosis Urinary retention BPH with urinary obstruction Prostatitis UTI (urinary tract infection) Anticoagulated Your Care Team Attending Physician - Mica Car MD Primary Care Physician - Lori Nugent MD This Is Your Medications List finasteride [...] Car MD Where: [facility] [address] [place] [address] 2024 11:00 AM EDT With: Where: [facility] You Need to Schedule the Following Appointments Follow Up with Mica Car MD, URL, URO When: Where: Medications What How Much When Instructions New finasteride (finasteride 5 mg Tab) 1 Tablets By Mouth Every day Refills: 11 Pickup at [facility] #[id number] Unchanged terazosin (terazosin 10 mg Cap) 1 [...] Duration: 3 (more content not included)... Normal [facility] Urology Office/Clinic Noteon 04-26-2024 Urology Office/Clinic Note Urology Office/Clinic Note HPI Staff 78 yo male here for PVR and gomez placement. History of Present Illness Tests reviewed: none. I have reviewed the previous health record information and history for this patient from Dr. Josep Heredia have reviewed and verified the staff HPI [...] unspecified) Pt states he was admitted at [facility] x 4 days due to PNA, Gomez removed and discharged 04/08/24. Pt states he presented back to [facility] ER due to UR. Gomez placed, [...] further bleeding since then. Pt went to [place] ER 02/26/24 d/t persistent dysuria. Admitted for 3 days. Received IV abx. Dc'd on Cipro x 10d and Levsin. Urine and blood cx both came back neg. [facility] ER 04/08/24 U.Cx was negative. Pt had an infection at the time of him being admitted in the hospital, is currently on abx. Advised pt to continue to abx that was given at the time of the ER visit. Started on Levaquin 500mg qd x3 wks 04/12/24. -Complete ATB course -See #3 5. 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 Elevated risk [...] DM (diabetes (more content not included)... Normal [facility] Comment on above: Result Comment: Elec tronically [...] Car MD Primary Care Physician - Lori Nugent MD This Is Your Medications List levofloxacin [...] AM EST With: Where: [facility] [address] [place] [address] [place] [address]- Wednesday 1:00 PM EST With: Mica Car MD Where: [facility] [address] [address] 2024 11:00 AM EDT With: Where: [facility] You Need to Schedule the Following Appointments Follow Up with Mica Car MD, URL, URO When: In 1 month Comments: w/PVR Where: Medications What How Much When Instructions New levofloxacin (Levaquin 500 mg Tab) 1 Tablets By Mouth Every 24 hours Duration: 3 Weeks Pickup at [facility] #[id number] Unchanged acetaminophen (Tylenol Extra Strength 500 mg [...] 3 time (more content not included)... Normal [facility] Urology Office/Clinic Noteon 04-12-2024 Urology Office/Clinic Note [...] not urinate so he went back to [facility] and they placed the Gomez. History [...] not urinate so he went back to [facility] and they placed the Gomez, PVR [...] further bleeding since then. Pt went to [place] ER 02/26/24 d/t persistent dysuria. Admitted for 3 days. Received IV abx. Dc'd on Cipro x 10d and Levsin. Urine and blood cx both came back neg. [facility] ER 04/08/24 U.Cx was negative. Pt had [...] be stoppe (more content not included)... Normal [facility] Comment on above: Result Comment: Elec tronically Signed By: Mica Car MD\.br\Date and Time Signed: 04/12/24 12:07 EST\.br\Electronically Co-Signed By: Kavita Mukherjee\.br\Date and Time Co-Signed: 04/12/24 11:48 EST Urine Cultureon 03-28-2024 Bacteria identified Cx Nom (U) No Growth 2 Days PERFORMED BY: [facility] [address] [place] [id number] PATHOLOGIST MICROBIOLOGICAL LAB TECHNICIAN DEMOND ESCOBAR M.D. Normal [facility] Comment on above: Performed By: #### C UU ####[facility] [id number] [place] [id number] [facility] Urine cultureOrdered By: Derek Vasquez on 03-28-2024 Bacteria identified Cx Nom (U) Urine culture [facility] Bacteria identified Cx Nom (U) Urine culture [facility] C Urineon 03-26-2024 Bacteria identified Cx Nom [...] Locations R1: This test was performed at: [facility], [address] [place] [address], [id number]- , [place], Normal [facility] Comment on above: Performed By: #### 2 [id number] #### [facility] [address] [place] [address] Main OR Preoperative Recordo n 03-20-2024 Main OR Preoperative Record Main OR Preoperative Record Holding Area Document Type FTURO Summary Primary Physician: Mica Car MD Finalized Date/Time: 03/20/24 16:29:34 Pt. Name: LEIGHTON ARCINIEGA Tyrese Rolon/Sex: 1945 Male Med Rec #: [id number] Physician: Mica Car MD Financial #: [id number] Pt. Type: O Room/Bed: / Admit/Disch: 12/27/23 [...] Complaints of Pain: No Skin Integrity Intact, Cocoa, Warm, & Dry Vitals - EU Blood Pressure 122/75 Pulse 81 bpm Respirations 18 br/min SPO2 96 % Additional None RN Reviewed Yes Specimens Collected Last Modified By: Tunde GODINEZ, Ankita Willett 12/27/23 11:25:48 Finalized By: Kendrick GODINEZ, Dalia MARTINEZ Document Signatures Signed By: Latha David LPN 12/27/23 11:01 Latha David LPN 12/27/23 11:02 Kenrdick GODINEZ, Dalia MARTINEZ 03/20/24 16:29 Normal [facility] Urine Cultureon 03-11-2024 Bacteria identified Cx Nom (U) ORGANISM: Prudence glabrata (O:CANGLA) [place] Count 75,000 PERFORMED BY: [facility] [address] [place] [address] PATHOLOGIST MICROBIOLOGICAL LAB TECHNICIAN DEMOND ESCOBAR M.D. Normal [facility] Comment on above: Performed By: #### C UU ####[facility] [id number] [place] [address] [facility] Urine cultureOrdered By: Derek Vasquez on 03-11-2024 Bacteria identified Cx Nom (U) Abnormal [facility] Bacteria identified Cx Nom (U) Abnormal [facility] Urology Office/Clinic Noteon 03-02-2024 Urology Office/Clinic Note [...] that he had 3 day stay at [facility] on 02/26/24 for severe UTI [...] further bleeding since then. Pt went to [place] ER 02/26/24 d/t persistent dysuria. Admitted for [...] 124ml Told him to continue Alfuzosin. Ordered: [id number] Measure Post Void residual urine and/or bladder [...] Urnls Dip Stick Auto w/o Microscopy POC 93001 3. Anticoagulated (Z79.01: alf (current) use of [...] Hypercholesteremia Inco (more content not included)... Normal [facility] Comment on above: Result Comment: Elec tronically Signed By: NATA TA PA-C\.br\Date and Time Signed: 03/02/24 17:13 EST\.br\Electronically Co-Signed By: Martir Shea\Date and Time Co-Signed: 03/02/24 13:38 EST ECG 12 Leadon 03-01-2024 AV paced rhythm [facility] Work Phone: URINE CULTUREon 02-19-2024 Bacteria identified Cx Nom (U) CULTURE RESULTS 10-50,000 ORGANISMS/mL NORMAL UROGENITAL ELIN Normal [facility] Comment on above: Performed By: #### 6 30-4 #### [facility] ([id number]) [address] [place] [address], [address] [place] [address] URN MACROSCOPIC NURon 2023 BILIRUBIN LETHA Negative Normal NEG [facility] Comment on above: Performed By: #### N UM #### [facility] ([id number]) [address] [place] [address] BLOOD/HGB LETHA Large Abnormal NEG [facility] Comment on above: Performed By: #### N UM #### [facility] ([id number]) [address] [place] [address] 15446 GLUCOSE LETHA >=1000 Abnormal NEG [facility] Comment on above: Performed By: #### N UM #### [facility] ([id number]) [address] [place] [address]0714 KETONES LETHA Negative Normal NEG [facility] Comment on above: Performed By: #### N UM #### [facility] ([id number]) [address] [place] [address] 35521 LEUKOCYTE ESTERASE LETHA Small Abnormal NEG [facility] Comment on above: Performed By: #### N UM #### [facility] ([id number]) [address] [place] [address] 26855 NITRITE LETHA Negative Normal NEG [facility] Comment on above: Performed By: #### N UM #### [facility] ([id number]) [address] [place] [address] 788[address] PH LETHA 6.0 Normal 5.0-8.5 [facility] Comment on above: Performed By: #### N UM #### [facility] ([id number]) [address] [place] [address] 12062 PROTEIN LETHA 100 mg/dL Abnormal NEG [facility] Comment on above: Performed By: #### N UM #### [facility] ([id number]) [address] [place] [address] 66545 SPECIFIC GRAVITY LETHA 1.015 Normal 1.003-1.035 [facility] Comment on above: Performed By: #### N UM #### [facility] ([id number]) [address] [place] [address] 46106 UROBILINOGEN LETHA 0.2 eu/dL Normal <1.1 [facility] Comment on above: Performed By: #### N UM #### [facility] ([id number]) [address] [place] [address] Inpatient Patient Summaryon 02-14-2024 Inpatient Patient Summary Inpatient Patient Summary [place] [id number] Clinical Summary Person Information Name: LEIGHTON ARCINIEGA Age: 78 Years : 1945 Sex: Male PCP: Lori Nugent MD Marital Status: Race: White Ethnicity: Non- or Language: Greenlandic Visit Id: Visit Reason: BPH WITH URINARY OBSTRUCTION Speciality: Acuity: Enc Type: Outpatient Med Service: Surgery Arrival: 02/14/2024 09:35:51 Discharge: Dispo Type: Address: Danie TONEY [address] [place] [phone] Provider Notes: Diagnosis: BPH with obstruction/lower urinary [...] day as needed for pain. acetaminophen-hydrocod one (Davis 325 mg-5 mg oral tablet) 1 Tablets [...] EU - Rezum Discharge Instructions (CUSTOM) Normal [facility] Main OR Intraoperative Recor don 02-14-2024 Main OR Intraoperative Record Main OR Intraoperative Record IntraOp Document Type FTURO Summary Primary Physician: Mica Car MD Finalized Date/Time: 02/14/24 12:08:58 Pt. Name: LEIGHTON ARCINIEGA/Sex: 1945 Male Med Rec #: [id number] Physician: Mica Car MD Financial #: [id number] Pt. Type: O Room/Bed: / Admit/Disch: 02/14/24 [...] 3 Case Attendee Josep SANDHU, Jocy Perea [facility], Aura A Role Performed Surgeon - Primary Claim Rep - Primary Scrub - Primary Time In [...] Corral 02/14/24 12:08 Jocy Corral 02/14/24 12:08 [facility] Main OR Preoperative Recordo n 02-14-2024 Main OR Preoperative Record Main OR Preoperative Record Holding Area Document Type FTURO Summary Primary Physician: Mica Car MD Finalized Date/Time: 02/14/24 11:48:27 Pt. Name: LEIGHTON ARCINIEGA Tyrese [place]/Sex: 1945 Male Med Rec #: [id number] Physician: Mica Car MD Financial #: [id number] Pt. Type: O Room/Bed: / Admit/Disch: 02/14/24 [...] Complaints of Pain: No Skin Integrity Intact, Cocoa, Warm, & Dry Vitals - EU Blood Pressure 152/74 Pulse 61 bpm Respirations 18 br/min SPO2 97 % Additional None RN Reviewed Yes Specimens Collected Last Modified By: Jocy Corral 02/14/24 11:48:23 Finalized By: Jocy Corral Document Signatures Signed By: Latha David LPN 02/14/24 11:05 Jocy Corral 02/14/24 11:48 Jocy Corral 02/14/24 11:48 Normal [facility] Operative Reporton Operative Report Operative Report Patient: [...] clearer. Follow-up in 1 month PVR.. Normal [facility] Comment on above: Result Comment: Elec tronically Signed By: Mica Car MD\.br\Date and Time Signed: 02/14/24 12:03 EST Outpatient Surgery Discharge Instructionon 02-14-2024 Outpatient Surgery Discharge Instruction Outpatient Surgery Discharge Instruction [place] [id number] Patient Discharge Instructions PERSON INFORMATION Name: LEIGHTON [...] While there (more content not included)... Normal [facility] Ambulatory Visit Summaryon 1 04-01-2023 Ambulatory Visit Summary Ambulatory Visit Summary LEIGHTON ARCINIEGA :1945 Visit Date:01/31/2024 Ambulatory Visit Instructions Your Diagnosis Urinary retention BPH with urinary obstruction Screening PSA (prostate specific antigen) ED (erectile dysfunction) Your Care Team Attending Physician - MICHAEL Sr APRN, Anna Herrera Primary Care Physician - Lori Nugent MD This Is Your Medications List Contact prescribing physician if questions or concerns acetaminophen (Tylenol Extra Strength 500 mg oral tablet) acetaminophen-hydrocod one (Davis 325 mg-5 mg oral tablet) allopurinol (allopurinol [...] if questions or concerns Unchanged acetaminophen-hydrocod one (Davis 325 mg-5 mg oral tablet) 1 Tablets [...] omeprazole (omep (more content not included)... Normal [facility] Urology Office/Clinic Noteon 01-31-2024 Urology Office/Clinic Note Urology Office/Clinic Note [facility] HPI Staff 78 year old male patient presents today for a [facility] ER follow up 01/23/24. Pt has [...] with voice recognition artificial intelligence software, specifically IntooBR, SpecifiedBy and or SocialPicks. Substitutions may have occurred due to the [...] (N52.9: Male erectile dysfunction, unspecified) Hx of [place] in 2002. Has pacemaker in place. Denies [...] in medic (more content not included)... Normal [facility] Comment on above: Result Comment: Elec tronically Signed By: MICHAEL Sr APRN, Aurora X\.deann\Date and Time Signed: 01/31/24 16:26 EST URINE CULTUREon 01-24-2024 Bacteria identified Cx Nom (U) CULTURE RESULTS NO GROWTH AT <1000 CFU/mL Normal [facility] Comment on above: Performed By: #### 6 30-4 #### [facility] ([id number]) [address] [place] [address], [address] [place] [address] URN MACROSCOPIC NURon 2023 BILIRUBIN LETHA Negative Normal NEG [facility] Comment on above: Performed By: #### N UM #### [facility] ([id number]) [address] [place] [address] BLOOD/HGB LETHA Trace Abnormal NEG [facility] Comment on above: Performed By: #### N UM #### [facility] ([id number]) [address] [place] [address] 71255 GLUCOSE LETHA >=1000 Abnormal NEG [facility] Comment on above: Performed By: #### N UM #### [facility] ([id number]) [address] [place] [address] 677[address] KETONES LETHA Negative Normal NEG [facility] Comment on above: Performed By: #### N UM #### [facility] ([id number]) [address] [place] [address] 09258 LEUKOCYTE ESTERASE LETHA Large Abnormal NEG [facility] Comment on above: Performed By: #### N UM #### [facility] ([id number]) [address] [place] [address] 83679 NITRITE LETHA Negative Normal NEG [facility] Comment on above: Performed By: #### N UM #### [facility] ([id number]) [address] [place] [address] 85659 PH LETHA 6.0 Normal 5.0-8.5 [facility] Comment on above: Performed By: #### N UM #### [facility] ([id number]) [address] [place] [address] 28275 PROTEIN LETHA 100 mg/dL Abnormal NEG [facility] Comment on above: Performed By: #### N UM #### [facility] ([id number]) [address] [place] [address] SPECIFIC GRAVITY LETHA 1.015 Normal 1.003-1.035 [facility] Comment on above: Performed By: #### N UM #### [facility] ([id number]) [address] [place] [address] UROBILINOGEN LETHA 0.2 eu/dL Normal <1.1 [facility] Comment on above: Performed By: #### N UM #### [facility] ([id number]) [address] [place] [address] Inpatient Patient Summaryon 12-27-2023 Inpatient Patient Summary Inpatient Patient Summary [address] [address] Clinical Summary Person Information Name: LEIGHTON ARCINIEGA Age: 78 Years : 1945 Sex: Male PCP: Lori Nugent MD Marital Status: Race: White Ethnicity: Non- or Language: Greenlandic Visit Id: Visit Reason: BPH WITH URINARY OBSTRUCTION Speciality: Acuity: Enc Type: Outpatient Med Service: Surgery Arrival: 12/27/2023 09:33:05 Discharge: Dispo Type: Address: [address] [place] [address] DR [address]ONE[address] [place] [phone] Provider Notes: Diagnosis: Anticoagulated; Other obstructive and [...] day as needed for pain. acetaminophen-hydrocod one (Davis 325 mg-5 mg oral tablet) 1 Tablets [...] Mica Car Comments: Office to schedule [facility] Type Location Start Finish State NCV Pacemaker (FT) FT.CARDIO 06/01/2024 11:00 AM 06/01/2024 11:15 AM Confirmed Patient Education Information: EU - Cystoscopy Discharge Instructions (CUSTOM) [facility] Main OR Intraoperative Recor don 12-27-2023 Main OR Intraoperative Record Main OR Intraoperative Record IntraOp Document Type FTURO Summary Primary Physician: Mica Car MD Finalized Date/Time: 12/27/23 11:42:38 Pt. Name: LEIGHTON ARCINIEGA/Sex: 1945 Male Med Rec #: [id number] Physician: Mica Car MD Financial #: [id number] Pt. Type: O Room/Bed: / Admit/Disch: 12/27/23 [...] Micky Vargas Role Performed Surgeon - Primary Claim Rep - Primary Scrub - Primary Time In 12/27/23 11:23:00 12/27/23 11:23:00 12/27/23 11:23:00 Time Out 12/27/23 11:42:00 12/27/23 11:42:00 12/27/23 11:42:00 Procedure PROSTATE TRANSRECTAL PROSTATE TRANSRECTAL PROSTATE TRANSRECTAL ULTRASOUND WITH BIO(.) ULTRASOUND WITH BIO(.) ULTRASOUND WITH BIO(.) Comments Last Modified By: Tunde GODINEZ, Ankita Gray RN, Ankita Gray RN, Anktia Willett 12/27/23 Shelly Willett 12/27/23 Shelly Willett [...] By: Ankita Gray RN 12/27/23 11:42 Normal [facility] Operative Reporton Operative Report Operative Report Patient: LEIGHTON ARCINIEGA Age: 78 years Sex: Male : 1945 Associated Diagnoses: None Author: Mica Car MD Procedure Operative Information Details: Date/ Time: 12/27/2023 12:10:00. Pre-Op Dx: BPH w/ LUTS - N40.1. Post-Op Dx: Feeling of incomplete bladder emptying (BHA21-XY R39.14, Working, Medical), Anticoagulated (VUW44-AD Z79.01, Discharge, Medical), Same. Anesthesia Type: Local. [...] and Valium prior to procedure. Will need wagon driver. -Will need blood thinners held prior to procedure. Elevated risk of bleeding discussed. -Patient did better on terazosin. Will DC tamsulosin and restart terazosin 10 mg daily. Medication sent to CT in [place].. Normal [facility] Comment on above: Result Comment: Elec tronically Signed By: Mica Car MD\.br\Date and Time Signed: 12/27/23 12:14 EDT Outpatient Surgery Discharge Instructionon 12-27-2023 Outpatient Surgery Discharge Instruction Outpatient Surgery Discharge Instruction [place] [id number] Patient Discharge Instructions PERSON INFORMATION Name: SUZELEIGHTON Tyrese Date of : 1945 Current Date: [...] Office to schedule [facility] Location [facility] Pacemaker (FT) FT.CARDIO 06/01/2024 11:00 AM 06/01/2024 [...] C, have received the attached patient education materials/instructions and have verbalized understanding: May we do a follow up call? Yes No I was present when discharge instructions were given Patient Signature Date Clinican/Nurse Signature ___ Date You may receive a survey from [employer] asking you to rate your care experience. Your feedback is important and will help us understand what we do well and how we can improve the quality of care we provide to you, your loved ones and our community. It?s an honor to serve you. Thank you for choosing [facility] Normal [facility] Ambulatory Visit Summaryon 0 11-12-2023 Ambulatory Visit Summary Ambulatory Visit Summary LEIGHTON ARCINIEGA :1945 Visit Date:11/12/2023 Ambulatory Visit Instructions Your Diagnosis BPH with urinary obstruction Incomplete bladder emptying ED (erectile dysfunction) Screening PSA (prostate specific antigen) Your Care Team Attending Physician - Josep SANDHU, Mica Johns Primary Care Physician - Lori Nugent MD This Is Your Medications List sildenafil (sildenafil 100 mg Tab) tamsulosin (tamsulosin 0.4 mg Cap) Contact prescribing physician if questions or concerns acetaminophen (Tylenol Extra Strength 500 mg oral tablet) acetaminophen-hydrocod one (Davis 325 mg-5 mg oral tablet) allopurinol (allopurinol [...] if questions or concerns Unchanged acetaminophen-hydrocod one (Davis 325 mg-5 mg oral tablet) 1 Tablets [...] Mouth E (more content not included)... Normal [facility] Urology Office/Clinic Noteon 11-12-2023 Urology Office/Clinic Note [...] (N52.9: Male erectile dysfunction, unspecified) Hx of [place] in 2002. Has pacemaker in place. Denies [...] antigen) Seborr (more content not included)... Normal [facility] Comment on above: Result Comment: Elec tronically Signed By: Josep SANDHU, Mica Johns\.br\Date and Time Signed: 11/12/23 16:43 EDT\.br\Electronically Co-Signed By: Maria Luz Mejia\.br\Date and Time Co-Signed: 11/12/23 16:14 EDT PTH Intacton 10-15-2023 Parathyrin.intact [Mass/Vol] 49 pg/mL Invalid Interpretation Code 15-65 [facility] Comment on above: Result Comment: Perf ormed at: [facility] [address] [id number] PhD Carlos Singh Performed By: #### 1 [id number] #### [facility] [address] [place] [address] ED Clinical Summaryon 2023 ED Clinical Summary ED Clinical Summary [address] [address] ED Clinical Summary Person Information Name: LEIGHTON ARCINIEGA [facility] Age: 77 Years : 1945 Sex: Male Language: Greenlandic PCP: Lori Nugent MD Marital Status: Visit Id: Visit Reason: [...] 13:18:55 10/14/2023 13:18:55 ADDRESS: Danie TONEY [address] [facility] [id number] PHYS DOC NOTES: MEDICAL INFORMATION: Prescriptions Given: New Medications [id number], [address] [place], [place] [id number], [phone] acetaminophen-hydrocod one (Davis 325 mg-5 mg oral tablet) 1 Tablets [...] EDUCATION INFORMATION: Instructions: Acute Knee Pain, Adult, Wuhl-ih-Echh Follow up: With: Address: When: Andrea Espana [address] [place], [place] [phone] Business (1) In 3 days 10/17/2023 With: Address: When: Call to schedule a follow-up appointment with your orthopedic surgeon. Use the Davis as needed for pain along with icing. . If you are unable to get in with your orthopedic surgeon, I have provided a referral for another one. In 3 days 10/17/2023 With: Address: When: Lori Nugent [address] [facility] [address] [place] [id number] Business (1) In 3 days DIAGNOSIS: Posterior left knee pain Normal [facility] ED Note-Physicianon 10-14-19 ED Note-Physician ED Note-Physician [...] he previously saw an orthopedic surgeon in [facility] for arthritis in which he will follow-up for further management of care. Patient is on Eliquis therefore I cannot prescribe him naproxen or any form of NSAID. Due to his age I did not feel a muscle relaxer was appropriate either. Based on this he is being prescribed 4 doses of Davis. He was educated on appropriate use of [...] q4hr for pain, 4 tab(s), Refill(s) 0, [id number], 177, cm, 10/14/23 11:44:00 EDT, Height/Length Dosing, 104.8, kg, 10/14/23 11:44:00 EDT, Weight Dosing Disposition Plan Patient Discharge Condition stable Discharge Disposition home Discharge Prescription List Prescriptions Davis 325 mg-5 mg oral tablet, 1 tab(s), Oral, q4hr, PRN Follow-up With When Contact Information Andrea Espana In 3 days 10/17/2023 EDT [address] [place] [address]- Business (1) Additional Instructions: Call to schedule a follow-up appointment with your orthopedic surgeon. Use the Davis as needed for pain along with icing. . If you are unable to get in with your orthopedic surgeon, I have provided a referral for another one. In 3 days 10/17/2023 EDT Additional Instructions: Lori Nugent In 3 days [address] [place] [address]- Business (1) Additional Instructions: Patient Education Acute Knee Pain, Adult, Nlbv-ov-Agas Attestation Patient seen and evaluated by the physician neurology physician assistant. Attending physician was present in the emergency department and supervised care. This visit was performed by both the physician and an APC. I performed all aspects of the MDM as documented. This report was transcribed using voice recognition software. Every effort was made to ensure accuracy, however, inadvertently computerized filler block inserter remover mistakes may be present. Appropriate healthcare PPE was used in evaluating this patient. The patient was placed in a mask. The healthcare provider was wearing mask, gloves, and utiliz (more content not included)... Normal [facility] Comment on above: Result Comment: Elec tronically Signed By: Vini Quinteros DO\.br\Date and Time Signed: 10/14/23 16:09 EDT\.br\Electronically Co-Signed By: Stewart BENDER, Nayla Quiros\.br\Date and Time Co-Signed: 10/14/23 13:46 EDT ED Patient Summaryon 024 ED Patient Summary ED Patient Summary [facility] [address] [place], [place] [address] Patient Discharge Instructions Person Information Name: LEIGHTON ARCINIEGA Age: 77 Years Arrival Date: 10/14/2023 11:36:13 Discharge Diagnosis: Posterior left knee pain Primary Care Physician: Lori Nugent MD Provider Information Primary Provider: Vini Quinteros DO Advanced Product Development Worker:Nayla William PA-C The exam and treatment you received in the Emergency Department were for an urgent problem and are not intended as complete care. It is important that you follow up with a doctor, nurse practitioner, or physician?s neurology physician assistant for ongoing care. If your symptoms [...] Instructions: With: Address: When: Andrea [address] [place] [phone] Business (1) In 3 days 10/17/2023 With: Address: When: Call to schedule a follow-up appointment with your orthopedic surgeon. Use the Davis as needed for pain along with icing. . If you are unable to get in with your orthopedic surgeon, I have provided a referral for another one. In 3 days 10/17/2023 With: Address: When: Lori Nugent [address] [facility], [place] [address] [place] [address] Business (1) In 3 days In the event that this physician does not participate in your insurance network, please consult with your insurance company to find a nearby participating provider. Patient Education Materials: Acute Knee Pain, Adult, Tdtx-it-Nlsr A MESSAGE TO ALL PATIENTS REGARDING OPIOIDS PRESCRIPTION OPIOIDS: WHAT YOU NEED TO KNOW Prescription opioids can be used to help relieve oigeyuke-qt-xnyrwz pain and are often prescribed following a [...] or yo (more content not included)... Normal [facility] XR Knee Complete 4+ Views Le fton [...] mGy = na DAP = na Normal [facility] Screenson 06-17-2023 Screens [id number] 0TIFF Normal [facility] Screens [id number] 0TIFF Normal [facility] Ambulatory Visit Summaryon 0 06-16-2023 Ambulatory Visit Summary LEIGHTON ARCINIEGA :1945 Visit Date:06/16/2023 Ambulatory Visit Instructions Your Diagnosis BPH with urinary obstruction Incomplete bladder emptying ED (erectile dysfunction) Screening PSA (prostate specific antigen) Your Care Team Attending Physician - FELIPE BENDER, NATA Holt Primary Care Physician - Lori Nugent MD This Is Your Medications List tadalafil [...] [facility] [place] [facility] [place] Patient Educationon 06-16-19 Patient Education Urology Erectile Dysfunction Erectile dysfunction [...] these instructions at home: Medicines ? Take iydm-yan-lyimrlv and prescription medicines only as told by [...] include cig (more content not included)... Normal [facility] Urology Office/Clinic Noteon 06-16-2023 Urology Office/Clinic [...] (N52.9: Male erectile dysfunction, unspecified) Hx of [place] in 2002. Has pacemaker in place. Denies [...] Information Josep SANDHU, Mica Johns, URL, URO [address] [place] [address]- [phone] Additional Instructions: Has f/u already scheduled 11/12/23 [...] Amputation, Tonsillectomy. (more content not included)... Normal [facility] Comment on above: Result Comment: Elec tronically Signed By: NATA TA PA-C\.br\Date and Time Signed: 06/16/23 10:56 EDT\.br\Electronically Co-Signed By: rKiss Frankel\.br\Date and Time Co-Signed: 06/16/23 10:48 EDT [place] 05-10-2023 Screens [id number] 0TIFF [facility] Screens [id number] 0TIFF [facility] Ambulatory Visit Summaryon 0 05-07-2023 Ambulatory Visit Summary LEIGHTON ARCINIEGA Tyrese :1945 Visit Date:05/07/2023 Ambulatory Visit Instructions Your Diagnosis BPH with urinary obstruction ED (erectile dysfunction) Incomplete bladder emptying Your Care Team Attending Physician - Mica Car MD Primary Care Physician - Lori Nugent MD This Is Your Medications List tadalafil [...] PA-C Where: [facility] Normal [address] [place] [address]- \.br\ You Need to Schedule the Following Appointments\.b r\ Follow Up with NATA TA PA-C, URL When: \.br\ Comments:\.br\ 1 mos w/ PVR \.br\ Where:\.br\ [address]br\ [place] [address]\.br\ [phone]\.br\ Medications\.br \ What How Much When Instructions\.b r\ New tadalafil (tadalafil 10 mg Tab) 1 Tablets By Mouth As Directed as needed for for erectile dysfunction Refills: 3 Take one tab 1 hour prior to sexual activity. Do not exceed 20mg in 48hrs. Pickup at [facility] #[id number]\.br\ New tamsulosin (tamsulosin 0.4 mg Cap) 1 Capsules By Mouth Once a day (in the evening) Refills: 11 Pickup at [facility] #[id number]\.br\ Unchanged acetaminophen (Tylenol Extra Strength 500 mg [...] concerns \.br\ Pharmacy Information\.br \ [facility] #[id number]: [address] [place], [place] [id number] [phone]\.br\ Allergies\.br\ Monopril (Dry cough)\.br\ Strawberries (rash)\.br\ Tomatoes [...] Symptoms of this condition include:\.br\ ? \ [facility] Ambulatory Visit Summary LEIGHTON ARCINIEGA :1945 Visit Date:05/07/2023 Ambulatory Visit Instructions Your Diagnosis BPH with urinary obstruction ED (erectile dysfunction) Your Care Team Attending Physician - Josep SANDHU, Mica Johns Primary Care Physician - Lori Nugent MD This Is Your Medications List Contact [...] MIGUELITO Richard, URO When: Comments: 6 mos ([facility]) Where: [address] [place] [address] [phone] Medications What How Much When Instructions Unchanged [...] Every da (more content not included)... Normal [facility] Patient Educationon 05-07-19 Patient Education Urology Erectile [...] these instructions at home: Medicines ? Take [id number] and prescription medicines only as told by [...] include cig (more content not included)... Normal [facility] Urology Office/Clinic Noteon 05-07-2023 Urology Office/Clinic Note [...] (N52.9: Male erectile dysfunction, unspecified) Hx of [place] in 2002. Has pacemaker in place. AMANDA [...] Information Josep SANDHU, Mica Johns, URL, URO [address] [place] [phone] Additional Instructions: 1 mos w/ PVR Patient Education Erectile Dysfunction Kriss Heredia, personally scribed for Dr. Car on 05/07/2023 15:06:02. . Documentation recorded by the scribeKriss, accurately reflects the services(s) I performed and decisions made by me. Authenticated by Dr. Car on 05/07/2023 16:05:51. Problem List/Past Medical History Ongoing Anticoagulated Arthritis Aspirin marshall (more content not included)... Normal [facility] Comment on above: Result Comment: Elec tronically Signed By: iMca Car MD\.br\Date and Time Signed: 05/07/23 16:06 EST\.br\Electronically Co-Signed By: Kriss Frankel.deann\Date and Time Co-Signed: 05/07/23 15:08 EST Office [...] Weight Tips; Status:Complete - Retrospective Authorization; Done: [id number] Some eating tips that can help you lose weight.; Status:Complete - Retrospective Authorization; Done: [id number] Essential hypertension Renew: Carvedilol 6.25 MG Oral Tablet; Take 1 tablet twice daily Hyperlipidemia Renew: Simvastatin 20 MG Oral Tablet; TAKE 0.5 TABLET Bedtime SocHx: Former smoker Tobacco Use Screening; Status:Complete; Done: [id number] Patient Instructions Please bring all medicines, vitamins, [...] sheet. Device check as directed per [facility] protocol Chief Complaint LEIGHTON ARCINIEGA is [...] battery life but I believe it was handhole machine operator error, and not true battery [...] 01Jul2022 10: (more content not included)... Normal [employer] Tobacco Screening.on 023 Adult depression screening assessment No [facility] 600 DO Work Phone: Fall risk assessment b) One or more fall s in the last year [facility] 600 DO Work Phone: Tobacco use status CPHS b) No [facility] [employer] 600 DO Work Phone: CBC AUTO DIFFon 05-28-2022 BASO # 0.0 103/ul Normal 0.0-0.1 [facility] Comment on above: Performed By: #### C BC #### [facility] [address] [place] [address] Dr. Susie Hale Basophils/100 WBC (Bld) 0.5 % Normal 0.2-2.0 [facility] Comment on above: Performed By: #### C BC #### [facility] [address] [address] [address] Susie Hale EO # 0.1 103/ul Normal 0.0-0.7 [facility] Comment on above: Performed By: #### C BC #### [facility] [address] [address] [address] Susie Hale Eosinophils/100 WBC (Bld) 1.8 % Normal 0.9-7.0 [facility] Comment on above: Performed By: #### C BC #### [facility] [address] [place] [address] Dr. Susie Hale Erythrocyte distribution width (RBC) [Ratio] 13.0 % Normal 11.0-15.0 [facility] Comment on above: Performed By: #### C BC #### [facility] [address] [place] [address] Dr. Susie Hale Hematocrit (Bld) [Volume fraction] 35.0 % Critically low 42.0-54.0 [facility] Comment on above: Performed By: #### C BC #### [facility] [address] [place] [address] Dr. Susie Hale Hemoglobin (Bld) [Mass/Vol] 12.2 g/dL Critically low 14.0-18.0 [facility] Comment on above: Performed By: #### C BC #### [facility] [address] [place] [address] Dr. Susie Hale IG # 0.05 10e3/ul Critically high 0.00-0.03 [facility] Comment on above: Performed By: #### C BC #### [facility] [address] [place] [address] Dr. Susie Hale IG % 0.8 % Critically high 0.0-0.5 [facility] Comment on above: Performed By: #### C BC #### [facility] [address] [place] [address] Dr. Susie Hale LYMPH # 1.9 103/ul Normal 1.2-3.8 [facility] Comment on above: Performed By: #### C BC #### [facility] [address] [place] [address] Dr. Susie Hale Lymphocytes/100 WBC (Bld) 28.7 % Normal 20.5-60.0 [facility] Comment on above: Performed By: #### C BC #### [facility] [address] [place] [address] Dr. Susie Hale MANUAL DIFF REQ NO Normal [facility] Comment on above: Performed By: #### C BC #### [facility] [address] [place] [address] Dr. Susie Hale MCH (RBC) [Entitic mass] 32.1 pg Normal 25.9-34.0 [facility] Comment on above: Performed By: #### C BC #### [facility] [address] [place] [address] Dr. Susie Hale MCHC (RBC) [Mass/Vol] 34.9 g/dL Normal 29.9-35.2 [facility] Comment on above: Performed By: #### C BC #### [facility] [address] [place] [address] Dr. Susie Hale MCV (RBC) [Entitic vol] 92.1 fL Normal 80.0-94.0 [facility] Comment on above: Performed By: #### C BC #### [facility] [address] [place] [address] Dr. Susie Hale MONO # 0.7 103/ul Normal 0.3-0.8 [facility] Comment on above: Performed By: #### C BC #### [facility] [address] [place] [address] Dr. Susie Hale Monocytes/100 WBC (Bld) 10.9 % Normal 1.7-12.0 [facility] Comment on above: Performed By: #### C BC #### [facility] [address] [place] [address] Dr. Susie Hale NEUT # 3.7 103/ul Normal 1.4-6.5 [facility] Comment on above: Performed By: #### C BC #### [facility] [address] [place] [address] Dr. Susie Hale Neutrophils/100 WBC (Bld) 57.3 % Normal 43.0-75.0 [facility] Comment on above: Performed By: #### C BC #### [facility] [address] [place] [address] Dr. Susie Hale Platelet mean volume (Bld) [Entitic vol] 8.5 fL Critically low 9.5-13.5 [facility] Comment on above: Performed By: #### C BC #### [facility] [address] [place] [address] Dr. Susie Hale PLT 238 103/ul Normal 150-450 [facility] Comment on above: Performed By: #### C BC #### [facility] [address] [address] [address] Susie Hale RBC 3.80 106/ul Critically low 4.70-6.10 [facility] Comment on above: Performed By: #### C BC #### [facility] [id number] Susie Hale WBC 6.5 103/ul Normal 4.0-11.0 [facility] Comment on above: Performed By: #### C BC #### [facility] [address] [address] [address] STROKE HEAD WOon [...] SANAZ CANO Date: 2022-05-28 18:17 Normal [facility] PROF 14(COMP METB)on 023 Albumin [Mass/Vol] 3.5 g/dL Normal 3.4-5.0 [facility] Comment on above: Performed By: #### C MP #### [facility] [address] [address] [address] Susie Hale Albumin/Globulin [Mass ratio] 1.1 {ratio} Normal [facility] Comment on above: Performed By: #### C MP #### [facility] [address] [place] [address] Dr. Susie Hale ALP [Catalytic activity/Vol] 87 U/L Normal 46-116 [facility] Comment on above: Performed By: #### C MP #### [facility] [address] [place] [address] Dr. Susie aHle ALT [Catalytic activity/Vol] 16 U/L Normal 16-63 [facility] Comment on above: Performed By: #### C MP #### [facility] [address] [place] [address] Dr. Susie Hale Anion gap [Moles/Vol] 10.0 mmol/L Normal [facility] Comment on above: Performed By: #### C MP #### [facility] [address] [place] [address] Dr. Susie Hale AST [Catalytic activity/Vol] 14 U/L Critically low 15-37 [facility] Comment on above: Performed By: #### C MP #### [facility] [address] [place] [address] Dr. Susie Hale Bilirubin [Mass/Vol] 0.2 mg/dL Normal 0.2-1.0 [facility] Comment on above: Performed By: #### C MP #### [facility] [address] [place] [address] Dr. Susie Hale Calcium [Mass/Vol] 8.9 mg/dL Normal 8.5-10.1 [facility] Comment on above: Performed By: #### C MP #### [facility] [address] [place] [address] Dr. Susie Hale Chloride [Moles/Vol] 105 mmol/L Normal 98-107 [facility] Comment on above: Performed By: #### C MP #### [facility] [address] [address] [address] Susie Hale CO2 [Moles/Vol] 25.7 mmol/L Normal 21.0-32.0 [facility] Comment on above: Performed By: #### C MP #### [facility] [address] [place] [address] Dr. Susie Hale Creatinine [Mass/Vol] 1.87 mg/dL Critically high 0.70-1.30 [facility] Comment on above: Performed By: #### C MP #### [facility] [address] [place] [address] Dr. Susie Hale EGFR-AF KOSOVAN 43 mL/min/1.73m2 Critically low >=60 [facility] Comment on above: Performed By: #### C MP #### [facility] [address] [place] [address] Dr. Susie Hale EGFR-NON AF KOSOVAN 35 mL/min/1.73m2 Critically low >=60 [facility] Comment on above: Performed By: #### C MP #### [facility] [address] [place] [address] Dr. Susie Hale Globulin (S) [Mass/Vol] 3.2 g/dL Normal [facility] Comment on above: Performed By: #### C MP #### [facility] [address] [place] [address] Dr. Susie Hale Glucose [Mass/Vol] 256 mg/dL Critically high 74-106 [facility] Comment on above: Performed By: #### C MP #### [facility] [address] [place] [address] Dr. Susie Hale Potassium [Moles/Vol] 3.7 mmol/L Normal 3.5-5.1 [facility] Comment on above: Performed By: #### C MP #### [facility] [address] [place] [address] Dr. Susie Hale Protein [Mass/Vol] 6.7 g/dL Normal 6.4-8.2 [facility] Comment on above: Performed By: #### C MP #### [facility] [address] [place] [address] Dr. Susie Hale Sodium [Moles/Vol] 137 mmol/L Normal 136-145 [facility] Comment on above: Performed By: #### C MP #### [facility] [address] [address] [address] Susie Hale Urea nitrogen [Mass/Vol] 22.0 mg/dL Critically high 7.0-18.0 [facility] Comment on above: Performed By: #### C MP #### [facility] [address] [address] [address] Susie Hale Urea nitrogen/Creatinine [Mass ratio] 11.8 mg/mg Normal [facility] Comment on above: Performed By: #### C MP #### [facility] [address] [address] [address] Susie Hale Office Visit (Cardiology)on 12-16-2021 [...] in adult Healthy Weight Tips; Status:Complete; Done: [id number] Some eating tips that can help you lose weight.; Status:Complete; Done: [id number] Essential hypertension Renew: Carvedilol 6.25 MG Oral Tablet; Take 1 tablet twice daily Hyperlipidemia Renew: Simvastatin 20 MG Oral Tablet; TAKE 0.5 TABLET Bedtime SocHx: Former smoker Tobacco Use Screening; Status:Complete; Done: [id number] Unlinked Stop: Aspirin 325 MG Oral Tablet [...] visit. Device check as directed per [facility] protocol Follow up in 6-9 months [...] Screening.on 022 Adult depression screening assessment No [facility] [employer] 600 DO Work Phone: Fall risk assessment a) No falls within the last year [facility] [employer] 600 DO Work Phone: Tobacco use status CP b) No [facility] [employer] 600 DO Work Phone: Tobacco Screening.on 021 Fall risk assessment a) No falls within the last year [facility] [employer] 250 DO Work Phone: Tobacco use status CP b) No [facility] [employer] 250 DO Work Phone: Vital Signs Date Time Vital Sign Value Performing Clinician Facility 07-06-2024 12:26-0400 Body height 177.8 cm Lori Nugent MD Work Phone: [facility] 07-06-2024 12:26-0400 Body mass index (BMI) [Ratio] 26.4 kg/m2 Lori Nugent MD Work Phone: [facility] 07-06-2024 12:26-0400 Body temperature 96.8 [degF] Lori Nugent MD Work Phone: [facility] 07-06-2024 12:26-0400 Body weight 83.46 kg Lori Nugent MD Work Phone: [facility] 07-06-2024 12:26-0400 Diastolic blood pressure 66 mm[Hg] Lori Nugent MD Work Phone: [facility] 07-06-2024 12:26-0400 Heart rate 70 /min Lori Nugent MD Work Phone: [facility] 07-06-2024 12:26-0400 Inhaled oxygen flow rate 2 L/min Lori Nugent MD Work Phone: [facility] 07-06-2024 12:26-0400 Respiratory rate 20 /min Lori Nugent MD Work Phone: [facility] 07-06-2024 12:26-0400 SaO2% (BldA) [Mass fraction] 97 % Lori Nugent MD Work Phone: [facility] 07-06-2024 12:26-0400 Systolic blood pressure 108 mm[Hg] Lori Nugent MD Work Phone: [facility] 06-15-2024 14:44-0400 Body height 177.8 cm Osvaldo Dickinson MD Work Phone: [facility] 06-15-2024 14:44-0400 Body mass index (BMI) [Ratio] 27.15 kg/m2 Osvaldo Dickinson MD Work Phone: [facility] 06-15-2024 14:44-0400 Body weight 85.82 kg Osvaldo Dickinson MD Work Phone: [facility] 06-15-2024 14:44-0400 Diastolic blood pressure 60 mm[Hg] Osvaldo Dickinson MD Work Phone: [facility] 06-15-2024 14:44-0400 Heart rate 72 /min Osvaldo Dickinson MD Work Phone: [facility] 06-15-2024 14:44-0400 Systolic blood pressure 100 mm[Hg] Osvaldo Dickinson MD Work Phone: [facility] 05-27-2024 12:00-0500 Diastolic blood pressure 64 mm[Hg] Lori Nugent MD Work Phone: [facility] 05-27-2024 12:00-0500 Heart rate 70 /min Lori Nugent MD Work Phone: [facility] 05-27-2024 12:00-0500 Inhaled oxygen flow rate 2 L/min Lori Nugent MD Work Phone: [facility] 05-27-2024 12:00-0500 Respiratory rate 18 /min Lori Nugent MD Work Phone: [facility] 05-27-2024 12:00-0500 SaO2% (BldA) [Mass fraction] 94 % Lori Nugent MD Work Phone: [facility] 05-27-2024 12:00-0500 Systolic blood pressure 123 mm[Hg] Lori Nugent MD Work Phone: [facility] 05-27-2024 08:00-0500 Body temperature 97.7 [degF] Lori Nugent MD Work Phone: [facility] 05-27-2024 05:17-0500 Body weight 85.6 kg Lori Nugent MD Work Phone: [facility] 05-25-2024 14:42-0500 Body height 177.8 cm Lori Nugent MD Work Phone: [facility] 05-22-2024 23:41-0500 Inhaled oxygen concentration 30 % Lori Nugent MD Work Phone: [facility] 05-13-2024 14:53-0500 SaO2% (BldA) [Mass fraction] 95 % Lori Nugent MD Work Phone: [facility] 05-13-2024 11:55-0500 Diastolic blood pressure 62 mm[Hg] Lori Nugent MD Work Phone: [facility] 05-13-2024 11:55-0500 Heart rate 89 /min Lori Nugent MD Work Phone: [facility] 05-13-2024 11:55-0500 Inhaled oxygen flow rate 2 L/min Lori Nugent MD Work Phone: [facility] 05-13-2024 11:55-0500 Respiratory rate 17 /min Lori Nugent MD Work Phone: [facility] 05-13-2024 11:55-0500 Systolic blood pressure 123 mm[Hg] Lori Nugent MD Work Phone: [facility] 05-13-2024 08:00-0500 Body temperature 97.6 [degF] Lori Nugent MD Work Phone: [facility] 05-13-2024 06:00-0500 Body weight 88 kg Lori Nugent MD Work Phone: [facility] 05-11-2024 04:00-0500 Inhaled oxygen concentration 40 % Lori Nugent MD Work Phone: [facility] 05-10-2024 15:22-0500 Body height 177.8 cm Lori Nugent MD Work Phone: [facility] 03-01-2024 11:12-0500 Body height 177.8 cm Osvaldo Dickinson MD Work Phone: [facility] 03-01-2024 11:12-0500 Body mass index (BMI) [Ratio] 30.13 kg/m2 Osvaldo Dickinson MD Work Phone: [facility] 03-01-2024 11:12-0500 Body weight 95.25 kg Osvaldo Dickinson MD Work Phone: [facility] 03-01-2024 11:12-0500 Diastolic blood pressure 54 mm[Hg] Osvaldo Dickinson MD Work Phone: [facility] 03-01-2024 11:12-0500 Heart rate 71 /min Osvaldo Dickinson MD Work Phone: [facility] 03-01-2024 11:12-0500 Systolic blood pressure 114 mm[Hg] Osvaldo Dickinson MD Work Phone: [facility] 12-14-2023 13:17-0400 Diastolic blood pressure [...] 177.8 cm Varghese Caal MD Work Phone: [facility] 08-25-2023 12:12-0400 Body mass index (BMI) [Ratio] 33.43 kg/m2 Varghese Caal MD Work Phone: [facility] 08-25-2023 12:12-0400 Body weight 105.69 kg Varghese Caal MD Work Phone: [facility] 08-25-2023 12:12-0400 Diastolic blood pressure 54 mm[Hg] Varghese Caal MD Work Phone: [facility] 08-25-2023 12:12-0400 Heart rate 60 /min Varghese Caal MD Work Phone: [facility] 08-25-2023 12:12-0400 Systolic blood pressure 126 mm[Hg] Varghese Caal MD Work Phone: [facility] 02-10-2023 11:37-0500 Body height 177.8 cm Varghese Caal MD Work Phone: [facility] 02-10-2023 11:37-0500 Body mass index (BMI) [Ratio] 32.28 kg/m2 Varghese Caal MD Work Phone: [facility] 02-10-2023 11:37-0500 Body weight 102.06 kg Varghese Caal MD Work Phone: [facility] 02-10-2023 11:37-0500 Diastolic blood pressure 58 mm[Hg] Varghese Caal MD Work Phone: [facility] 02-10-2023 11:37-0500 Heart rate 63 /min Varghese Caal MD Work Phone: [facility] 02-10-2023 11:37-0500 Systolic blood pressure 120 mm[Hg] Varghese Caal MD Work Phone: [facility] 07-01-2022 10:54-0400 Body height 177.8 cm Andrea Espinoza Work Phone: [facility] [employer] 600 DO Work Phone: 07-01-2022 10:54-0400 Body mass index (BMI) [Ratio] 32.71 kg/m2 Andrea Espinoza Work Phone: [facility] 600 DO Work Phone: 07-01-2022 10:54-0400 Body surface area Derived from formula 2.21 m2 Andrea Houstonh Work Phone: [facility] 600 DO Work Phone: 07-01-2022 10:54-0400 Body weight 103.42 kg Andrea Vasquezroh Work Phone: [facility] 600 DO Work Phone: 07-01-2022 10:54-0400 Diastolic blood pressure 64 mm[Hg] Andrea Vasquezroh Work Phone: [facility] 600 DO Work Phone: 07-01-2022 10:54-0400 Heart rate 72 /min Andrea Vasquezroh Work Phone: [facility] 600 DO Work Phone: 07-01-2022 10:54-0400 Systolic blood pressure 118 mm[Hg] Andrea Vasquezroh Work Phone: [facility] 600 DO Work Phone: 12-16-2021 11:08-0400 Body height 177.8 cm Andrea Espinoza Work Phone: [facility] 600 DO Work Phone: 12-16-2021 11:08-0400 Body mass index (BMI) [Ratio] 33.86 kg/m2 Andrea Vasquezroh Work Phone: [facility] 600 DO Work Phone: 12-16-2021 11:08-0400 Body surface area Derived from formula 2.24 m2 Andrea Vasquezroh Work Phone: [facility] 600 DO Work Phone: 12-16-2021 11:08-0400 Body weight 107.05 kg Andrea Espinoza Work Phone: [facility] 600 DO Work Phone: 12-16-2021 11:08-0400 Diastolic blood pressure 64 mm[Hg] Andrea Espinoza Work Phone: [facility] 600 DO Work Phone: 12-16-2021 11:08-0400 Heart rate 72 /min Andrea Espinoza Work Phone: [facility] 600 DO Work Phone: 12-16-2021 11:08-0400 Systolic blood pressure 132 mm[Hg] Andrea Espinoza Work Phone: [facility] 600 DO Work Phone: 01-22-2021 14:36-0400 Body height 177.8 cm Andrea Espinoza Work Phone: [facility] 250 DO Work Phone: 01-22-2021 14:36-0400 Body mass index (BMI) [Ratio] 34.01 kg/m2 Andrea Espinoza Work Phone: [facility] 250 DO Work Phone: 01-22-2021 14:36-0400 Body surface area Derived from formula 2.24 m2 Andrea Espinoza Work Phone: [facility] 250 DO Work Phone: 01-22-2021 14:36-0400 Body weight 107.5 kg Andrea Espinoza Work Phone: [facility] 250 DO Work Phone: 01-22-2021 14:36-0400 Diastolic blood pressure 54 mm[Hg] Andrea Espinoza Work Phone: [facility] 250 DO Work Phone: 01-22-2021 14:36-0400 Heart rate 76 /min Andrea Espinoza Work Phone: [facility] 250 DO Work Phone: 01-22-2021 14:36-0400 Systolic blood pressure 104 mm[Hg] Andrea Espinoza Work Phone: [facility] 250 DO Work Phone: Encounters Encounter Date Encounter Type Care Provider Facility Start: 12-07-2024 ambulatory Mica M. Lue [facility] [place] Start: 10-18-2024 ambulatory Deepti Sherry Facility:[facility] [place] Start: 09-20-2024 End: 09-20-2024 ambulatory Kimberlyntalya Rios [facility] Start: 08-24-2024 End: 08-24-2024 ambulatory Mica M. Lue Facility:[facility] Start: 08-17-2024 End: 08-17-2024 ambulatory Lori Nugent MD Work Phone: [facility] Work Phone: Start: 08-17-2024 End: 08-17-2024 Departed Referred Lori Nugent MD Work Phone: [facility] [place] [facility] Start: 07-31-2024 End: 07-31-2024 ambulatory Mica M. Lue Facility:[facility] Start: 07-24-2024 End: 07-24-2024 ambulatory Mica M. Lue [facility] Start: 07-17-2024 End: 07-17-2024 ambulatory Anna X Orzech Facility[facility] Start: 07-11-2024 End: 07-11-2024 ambulatory Anna X Orzech Facility:[facility] [place] Start: 07-06-2024 End: 07-06-2024 Patient encounter procedure Lori Nugent MD Work Phone: [facility] Work Phone: Start: 06-29-2024 End: 06-29-2024 Patient encounter procedure Lori Nugent MD Work Phone: [facility] [place] Work Phone: Start: 06-29-2024 End: 06-29-2024 ambulatory Lori Nugent MD Work Phone: [facility] Work Phone: Start: 06-29-2024 End: 06-29-2024 ambulatory [facility] Facility[facility] Start: 06-26-2024 Non-patient / Non-visit Nova Nugent MD Work Phone: [facility] Work Phone: Start: 06-26-2024 End: 06-26-2024 Patient encounter procedure Lori Nugent MD Work Phone: [facility]-Respiratory Therapy Work Phone: Start: 06-26-2024 End: 06-26-2024 ambulatory Lori Nugent MD Work Phone: [facility] Work Phone: Start: 06-16-2024 End: 06-16-2024 ambulatory Deepti [facility] Facility:[facility] Start: 06-15-2024 End: 06-15-2024 Office outpatient visit 25 minutes Osvaldo Dickinson MD Work Phone: [facility] Comment on above: Nonischemic cardiomy opathy (Multi) (Primary Dx); Sick sinus syndrome (Multi); Paroxysmal atrial fibrillation (Multi); Pacemaker; Mixed hyperlipidemia; Essential hypertension; Stage 4 chronic kidney disease (Multi); Non-smoker; BMI 27.0-27.9,adult; [facility] resident Start: 06-15-2024 End: 06-15-2024 ambulatory [facility] Start: 05-20-2024 Non-patient / Non-visit Nova Nugent MD Work Phone: [facility] Work Phone: Start: 05-20-2024 End: 05-27-2024 Evaluation and management of inpatient Lori Nugent MD Work Phone: [facility] [place] [facility] Work Phone: Start: 05-18-2024 End: 05-18-2024 ambulatory Lori Nugent MD Work Phone: [facility] Work Phone: Start: 05-18-2024 End: 05-18-2024 Departed Referred Lori Nugent MD Work Phone: [facility] [place] [facility] Start: 05-18-2024 End: 05-18-2024 ambulatory Mica Car Facility[facility] Start: 05-18-2024 End: 05-18-2024 ambulatory Mica Car Facility:[facility] Start: 05-13-2024 Non-patient / Non-visit Nova Nugent MD Work Phone: [facility] Work Phone: Start: 05-12-2024 ambulatory Mica Car Facility:[facility] Start: 05-09-2024 End: 05-13-2024 Evaluation and management of inpatient Lori Nugent MD Work Phone: [facility] [place] [facility] Work Phone: Start: 04-26-2024 End: 04-26-2024 ambulatory Micamarielos Car Facility:[facility] [place] Start: 04-25-2024 End: 04-25-2024 ambulatory Deepti Powell Facility:[facility] [place] Start: 04-25-2024 End: 04-25-2024 ambulatory Mica M. Josep Facility:[facility] [place] Start: 04-12-2024 End: 04-12-2024 ambulatory Mica M. Lue Facility:[facility] [place] Start: 04-08-2024 Non-patient / Non-visit Nova Nugent MD Work Phone: [facility] Work Phone: Start: 04-06-2024 End: 04-06-2024 ambulatory Mica Car Facility:[facility] Start: 03-28-2024 End: 03-28-2024 ambulatory Benton Vasquez [facility] Work Phone: Start: 03-28-2024 End: 03-28-2024 Departed Referred Benton Vasquez [facility] [place] [facility] Start: 03-24-2024 End: 03-24-2024 ambulatory Mica Car [facility] Start: 03-11-2024 End: 03-11-2024 ambulatory Benton Vasquez Facility:[facility] Start: 03-11-2024 End: 03-11-2024 Departed Referred Benton Vasquez [facility] [place] [facility] Start: 03-02-2024 End: 03-02-2024 ambulatory NATA TA Facility:[facility] Start: 03-01-2024 End: 03-01-2024 Office outpatient visit 25 minutes Osvaldo Dickinson MD Work Phone: [facility] Comment on above: Paroxysmal atrial fi brillation (Multi) (Primary Dx); Sick sinus syndrome (Multi); Pacemaker; Essential hypertension; Cardiomyopathy, unspecified type (Multi); Mixed hyperlipidemia; Stage 4 chronic kidney disease (Multi); Non-smoker; BMI 30.0-30.9,adult Start: 03-01-2024 End: 03-01-2024 ambulatory [facility] Start: 02-19-2024 End: 02-19-2024 Emergency department patient visit LORI Vallejo Fan [facility] Start: 02-18-2024 End: 02-18-2024 ambulatory Mica Car Facility:[facility] [place] Start: 02-14-2024 End: 02-14-2024 ambulatory Mica Car [facility] Start: 01-31-2024 End: 01-31-2024 ambulatory Anna Sr Facility:[facility] [place] Start: 01-24-2024 End: 01-24-2024 Emergency department patient visit BOBO T ELIDIA [facility] Start: 01-17-2024 End: 01-17-2024 Office outpatient visit 25 minutes Blanca Alonso MD Work Phone: [facility] Comment on above: Other atopic dermati tis (Primary Dx); Seborrheic keratosis; Lentigines; History of SCC (squamous cell carcinoma) of skin Start: 01-17-2024 End: 01-17-2024 ambulatory BLANCA ALONSO Not Available Start: 12-27-2023 End: 12-27-2023 ambulatory Mica Car Facility[facility] Start: 12-14-2023 End: 12-14-2023 Bamboo flowsheet Dank Robert DO Work Phone: [employer] [facility] Start: 12-14-2023 End: 12-14-2023 Bamboo flowsheet Dank Robert DO Work Phone: [employer] [facility] Start: 12-14-2023 End: 12-14-2023 Office outpatient visit 25 minutes Dank Robert DO Work Phone: [employer] [facility] Comment on above: VIRGILIO (obstructive sle ep apnea) (Primary Dx); Hypersomnia; PLMD (periodic limb movement disorder); Obesity due to excess calories, unspecified classification, unspecified whether serious comorbidity present; Snoring Start: 12-14-2023 End: 12-14-2023 ambulatory DANK JONES Not Available Start: 12-09-2023 End: 12-09-2023 ambulatory Varghese Caal [facility] Start: 11-12-2023 End: 11-12-2023 ambulatory Mica Car Facility:[facility] [place] Start: 10-14-2023 End: 10-14-2023 Emergency department patient visit Vini Quinteros Facility[facility] Start: 10-14-2023 ambulatory Barb Loza Fa cility:[facility] Start: 08-31-2023 End: 08-31-2023 ambulatory BLANCA ALONSO Not Available Start: 08-25-2023 End: 08-25-2023 Office outpatient visit 25 minutes Varghese Caal MD Work Phone: [facility] Comment on above: Essential hypertensi on (Primary Dx); Sick sinus syndrome (Multi); Mixed hyperlipidemia; Paroxysmal atrial fibrillation (Multi); Dilated cardiomyopathy (Multi); Pacemaker; BMI 33.0-33.9,adult Start: 08-25-2023 End: 08-25-[address] [facility] Start: 08-10-2023 End: 08-10-2023 ambulatory BLANCA A PETITTI Not Available Start: 06-16-2023 End: 06-16-2023 ambulatory NAPOLEON TA Facility:[facility] [place] Start: 05-07-2023 End: 05-07-2023 ambulatory Mica VallejoAnisa Car Facility:[facility] Start: 03-19-2023 End: 03-19-2023 ambulatory BLANCA PETITTI Not Available Start: 03-05-2023 End: 03-05-2023 ambulatory BLANCA A PETITTI Not Available Start: 02-10-2023 End: 02-10-2023 Office outpatient visit 25 minutes Varghese Caal MD Work Phone: [facility] Comment on above: Sick sinus syndrome (CMS/HCC) (Primary Dx); Mobitz type II atrioventricular block; Pacemaker; Essential hypertension; Dilated cardiomyopathy (CMS/HCC); Paroxysmal atrial fibrillation (CMS/HCC) Start: 10-22-[address] Andrea Espinoza Facility: Start: 07-01-2022 Office outpatient vi sit 25 minutes Andrea Espinoza Work Phone: [facility] 600 DO Work Phone: Start: 07-01-[address] Varghese Caal II Facility: Start: 05-28-2022 End: 05-28-[address] TRINO Lange Facility:[facility] Start: 05-14-2022 End: 05-15-2022 ambulatory MARIXA ROY Facility:[facility] Start: 04-23-[address] Andrea Espinoza Facility: Start: 12-31-2021 Rx Renewal Andrea Espinoza Work Phone: [facility] 250 DO Work Phone: Start: 12-16-2021 Office outpatient vi sit 25 minutes Andrea Espinoza Work Phone: [facility] 600 DO Work Phone: Start: 12-16-[address] Varg[facility]se [facility] Facility: Start: 01-22-2021 Office outpatient vi sit 25 minutes Andrea Espinoza Work Phone: [facility] 250 DO Work Phone: Procedures Date Procedure Procedure Detail Performing Clinician Start: 06-29-2024 Plain chest X-ray Viniciol amelie Nugent MD Work Phone: Start: 05-25-2024 Plain chest X-ray Viniciol amelie Nugent MD Work Phone: Start: 05-23-2024 Radionuclide myocard ial perfusion stress study Lori Nugent MD Work Phone: Start: 05-22-2024 Methicillin resistan t Staphylococcus aureus culture Lori Nugent MD Work Phone: Start: 05-20-2024 Aerobic microbial culture Lori Nugent MD Work Phone: Start: 05-20-2024 Gram stain microscopy Asif Nugent MD Work Phone: Start: 05-20-2024 Screening for occult blood in feces Lori Nugent MD Work Phone: Start: 05-20-2024 CT of chest without contrast Lori Nugent MD Work Phone: Start: 05-20-2024 Plain chest X-ray Viniciol amelie Nugent MD Work Phone: Start: 05-18-2024 Urine culture Lori urbano MD Work Phone: Start: 05-12-2024 Plain chest X-ray Edi Nugent MD Work Phone: Start: 05-09-2024 Plain chest X-ray Dougl amelie Nugent MD Work Phone: Start: 03-28-2024 Urine culture [...] DTaP/Tdap/Td Vaccines (2 - Td or Tdap) [facility] Start: 05-11-2025 Echocardiography Echocardiogram [facility] Start: 01-25-2025 End: 01-25-2025 Patient encounter procedure 01/25/2025 1:05 PM EST Office Visit [facility] [address] [place] [address] Blanca Alonso MD [address] [place] [address] [facility] Start: 12-12-2024 End: 12-12-2024 Patient encounter procedure 12/12/2024 1:00 PM EDT Office Visit [facility] [address] [facility] [place] [phone] Rox Cervantes NP [address] [place], [place] [facility] Start: 11-28-2024 Glaucoma screening Diabetes: R etinopathy Screening [facility] Start: 11-07-2024 End: 11-07-2024 Patient encounter procedure 11/07/2024 10:30 AM EDT Office Visit [place] [address] [place] [address] Osvaldo Dickinson MD [address] [place] [address] [facility] Start: 08-17-2024 Bacteria identified in Urine by Culture Urine Culture [facility] Start: 08-17-2024 Urine culture [facility] Start: 06-15-2024 End: 06-15-2025 Basic metabolic 2000 panel - Serum or Plasma Basic Metabolic Panel Lab Routine Paroxysmal atrial fibrillation (Multi) Essential hypertension Stage 4 chronic kidney disease (Multi) Nonischemic cardiomyopathy (Multi) Expected: 06/15/2024 (Approximate), Expires: 06/15/2025 [facility] Service Area Work Phone: Comment on above: Expected: 06/15/2024 (Approximate), Expires: 06/15/2025 Start: 05-27-2024 [facility] Start: 05-27-2024 Ascorbic acid measurement [facility] Start: 05-20-2024 Administration of prophylactic treatment [facility] Start: 05-20-2024 Consultation [facility] Start: 05-20-2024 Hospital admission [facility] Start: 05-18-2024 Urine culture [facility] Start: 05-18-2024 Bacteria identified in Urine by Culture Urine Culture [facility] Start: 05-13-2024 [facility] Start: 05-12-2024 Administration of prophylactic treatment [facility] Start: 05-09-2024 Hospital admission [facility] Start: 05-09-2024 Referral to plant pathologist [facility] Start: 03-28-2024 Urine culture [facility] Start: 03-28-2024 Bacteria identified in Urine by Culture Urine Culture [facility] Start: 03-01-2024 End: 03-01-2024 Patient encounter procedure 03/01/2024 11:00 AM EST Office Visit [place] [address] [place] [address] Osvaldo Dickinson MD [address] [facility] [address] [place] [address] [facility] Start: 01-17-2024 End: 01-17-2024 Patient encounter procedure 01/17/2024 3:15 PM EDT Office Visit [facility] [address] [place] [address] Blanca Alonso MD [address] [place] [address] [facility] Start: 12-14-2023 End: 12-14-2023 Patient encounter procedure 12/14/2023 1:30 PM EDT [facility] [address] [place] [id number] Dank Jones DO [address] [place] [address] Arrived [facility] Comment on above: Arrived Start: 12-01-2023 Glaucoma screening Diabetes: R etinopathy Screening [facility] Start: 08-25-2023 End: 08-25-2023 Patient encounter procedure 08/25/2023 11:40 AM EDT Office Visit [place] [address] [place] [address] Varghese Caal MD [address] [facility] [address] [place] [address] [facility] Start: 06-05-2023 COVID-19 Vaccine ( season) COVID-19 Vaccine ( season) [facility] Start: 04-01-2023 COVID-19 Vaccine (6 - Moderna series) COVID-19 Vaccine (6 - Moderna series) [facility] Start: 02-10-2023 FUV, Provider: Varghese Caal, Status: Pen, Time: 11:30 AM FUV, Provider: Varghese Caal, Status: Pen, Time: 11:30 AM -[facility] 600 DO Work Phone: Start: 07-01-2022 FUV, Provider: Varghese Caal, Status: Pen, Time: 10:40 AM FUV, Provider: Varghese Caal, Status: Pen, Time: 10:40 AM -[facility] 600 DO Work Phone: Start: 09-10-2021 FUV, Provider: Varghese Caal, Status: Pen, Time: 2:30 PM FUV, Provider: Varghese Caal, Status: Pen, Time: 2:30 PM -[facility] 250 DO Work Phone: Start: 2020 RSV High Risk: (Elde rly (60+) or Population) (1 - 1-dose 75+ series) RSV High Risk: (Elderly (60+) or Population) (1 - 1-dose 75+ series) [facility] Start: 05-09-2020 Echocardiography Echocardiogram [facility] Start: 2005 RSV patient s and/or patients aged 60+ years (1 - 1-dose 60+ series) RSV patients and/or patients aged 60+ years (1 - 1-dose 60+ series) [facility] Start: 11-26-1995 Zoster Vaccines (1 of 2) Zoste r Vaccines (1 of 2) [facility] Start: 1964 Urine screening for protein Diabetes: Urine Protein Screening [facility] Start: 11-26-1963 Hepatitis C [facility] Start: 11-26-1955 Diabetic foot examination Diabetes: Foot Exam [facility] Start: 11-26-1955 Glaucoma screening Diabetes: R etinopathy Screening [facility] Start: 1945 Creatinine measurement Creatinine Le sarah [facility] Start: 1945 Hemoglobin A1c measurement Jennifer betes: Hemoglobin A1C [facility] Start: 1945 Lipid panel Lipid Panel [facility] Start: 1945 Medicare Annual Well ness Visit Medicare Annual Wellness Visit (AWV) [facility] Start: 1945 Potassium measurement Potassium Cb l [facility] Start: 1945 Urine screening for protein Diabetes: Urine Protein Screening [facility] Patient referral [facility] Work Phone: XR Chest 2 Views [facility] Immunizations Immunization Date Immunization Notes Care Provider Fa cili 02-14-2024 influenza, seasonal, injectable Osvaldo Dickinson MD Work Phone: [facility] Work Phone: 01-14-2022 Fluad Quadrivalent 0 .5 ML Intramuscular Prefilled Syringe Andrea Houston Work Phone: [facility] 600 DO Work Phone: 01-14-2022 Pfizer COVID-19 Vac Bivalent 30 MCG/0.3ML Intramuscular Suspension Andrea Patel [employer] Work Phone: [facility] 600 DO Work Phone: 09-03-2021 pneumococcal conjuga te vaccine, 13 valent Dank Jones DO Work Phone: [facility] 02-15-2021 Moderna COVID-19 Vaccine 100 MCG/0.5ML Intramuscular Suspension Andrea Houston Work Phone: [facility] 600 DO Work Phone: 01-30-2021 influenza virus vaccine, unspecified formulation Andrea Patel [employer] [facility]: [facility] 600 DO Work Phone: 11-28-2020 influenza, high dose seasonal, preservative-free Andrea Houston Work Phone: [facility] 250 DO Work Phone: Comment on above: Series: 06-20-2020 Moderna COVID-19 Vaccine 100 MCG/0.5ML Intramuscular Suspension Andrea Espinoza Work Phone: [facility] 600 DO Work Phone: 05-20-2020 Moderna COVID-19 Vaccine 100 MCG/0.5ML Intramuscular Suspension Andrea Espinoza Work Phone: [facility] 250 DO Work Phone: Comment on above: Series: 04-25-2020 Moderna COVID-19 Vaccine 100 MCG/0.5ML Intramuscular Suspension Andrea Espinoza Work Phone: [facility] 250 DO Work Phone: Comment on above: Series: 12-21-2019 influenza virus vaccine, unspecified formulation Andrea Amanda Bernarda Work Phone: [facility] 600 DO Work Phone: 12-20-2018 influenza, high dose seasonal, preservative-free Andrea Patel [employer]emmazulay Work Phone: [facility] 02-19-2018 influenza virus vaccine, unspecified formulation Andrea Patel Pedroemmazulay Work Phone: [facility] 600 DO Work Phone: 02-19-2018 pneumococcal polysaccharide vaccine, 23 valent Andrea Patel Bernarda Work Phone: [facility] 250 DO Work Phone: Comment on above: Series: 02-19-2018 pneumococcal vaccine , unspecified formulation Andrea Patel Pedroemmazulay Work Phone: [facility] 02-18-2017 Influenza, injectabl e, Madin [place] Canine Kidney, preservative free, quadrivalent Andrea Patel Pedroyann Work Phone: [facility] 600 DO Work Phone: 11-24-2016 influenza, high dose seasonal, preservative-free Andrea Espinoza Work Phone: [facility] Work Phone: 12-21-2015 pneumococcal conjuga te vaccine, 13 valent Andrea Espinoza Work Phone: [facility] DO Work Phone: Comment on above: Series: Payers Date Payer Category Payer Self-pay 2022 Medicare [id number] 2022 [employer] ( and others) [id number] 2022 () [id number] 2022 For Life (TFL) F OR LIFE [id number] 2022 [employer] ( and others) [id number] 2010 Medicare [id number] [facility] ( and others) [id number] 1959 Medicare [id number] 1945 Unknown [id number] 2.16.840.1.677045.3.579. 2.593 1945 Unknown [id number] 2.16.840.1.643790.3.579. 2.593 1945 Unknown [id number] 2.16.840.1.694140.3.579. 2.356 1945 Unknown [id number] 2.16.840.1.274189.3.579. 2.356 1945 Unknown [id number] 2.16.840.1.441076.3.579. 2.356 1945 Unknown [id number] 2.16.840.1.501218.3.579. 2.356 1945 Unknown [id number] 2.16.840.1.392348.3.579. 2.1259 1945 Unknown [id number] 2..840.1.957106.3.579. 2.1259 1945 Unknown [id number] 2.840.1.304031.3.579. 2.1259 1945 Unknown [id number] 2.16.840.1.970376.3.579. 2.1259 1945 Unknown [id number] 2.16.840.1.210638.3.579. 2.1259 1945 Unknown [id number] 2.16.840.1.035925.3.579. 2.1259 1945 Unknown [id number] 2.16.840.1.525155.3.579. 2.1286 1945 Unknown [id number] 2.16.840.1.725304.3.579. 2.1286 1945 Unknown [id number] 2.16.840.1.128951.3.579. 2.72 1945 Unknown [id number] 2.16.840.1.461757.3.579. 2.727 1945 Unknown [id number] 2.16.840.1.971867.3.579. 2.72 1945 Unknown [id number] 2.16.840.1.479511.3.579. 2.72 1945 Unknown [id number] 2.16.840.1.900615.3.579. 2.72 1945 Unknown [id number] 2.16.840.1.393438.3.579. 2.72 1945 Unknown [id number] 2.16.840.1.552613.3.579. 2.72 1945 Unknown [id number] 2.16.840.1.768709.3.579. 2.72 1945 Unknown [id number] 2.16.840.1.040278.3.579. 2 1945 Unknown [id number] 2.16.840.1.425754.3.579. 2.72 1945 Unknown [id number] 2.16.840.1.341751.3.579. 2.72 1945 Unknown [id number] 2.16.840.1.537252.3.579. 2.72 1945 Unknown [id number] 2.16.840.1.944527.3.579. 2. 1945 Unknown [id number] 2.16.840.1.954153.3.579. 2.72 1945 Unknown [id number] 2.16.840.1.673842.3.579. 272 1945 Unknown [id number] 2.16.840.1.574697.3.579. 2.72 1945 Unknown [id number] 2.16.840.1.829673.3.579. 2.72 1945 Unknown [id number] 2.16.840.1.159555.3.579. 2.72 1945 Unknown [id number] 2.16.840.1.775425.3.579. 2.72 1945 Unknown [id number] 2.16840.1.055023.3.579. 2. 1945 Unknown [id number] 2.16840.1.325045.3.579. 2. 1945 Unknown [id number] 2.16840.1.516648.3.579. 2 1945 Unknown [id number] 2.16840.1.648021.3.579. 2.1243 1945 Unknown [id number] 2.16840.1.284620.3.579. 2.1243 1945 Unknown [id number] 2.16840.1.848316.3.579. 2.1243 1945 Unknown [id number] 2.16840.1.177359.3.579. 2. 1945 Unknown [id number] 2.16840.1.304460.3.579. 2. 1945 Unknown [id number] 2.16840.1.972424.3.579. 2. 1945 Unknown [id number] 2.16840.1.823137.3.579. 2.72 1945 Unknown [id number] 2.16840.1.113313.3.579. 2. 1945 Unknown [id number] 2.16.840.1.388975.3.579. 2.727 1945 Unknown [id number] 2.16.840.1.589793.3.579. 2.727 1945 Unknown [id number] 2.16.840.1.488343.3.579. 2.727 1945 Unknown [id number] 2.16.840.1.869084.3.579. 2.72 1945 Unknown [id number] 2.16.840.1.931784.3.579. 2.72 1945 Unknown [id number] 2.16.840.1.437200.3.579. 2.72 1945 Unknown [id number] 2.16.840.1.137918.3.579. 2.72 1945 Unknown [id number] 2.16.840.1.664735.3.579. 2.727 Unknown Unknown [id number] 2.16.840.1.865511.3.579. 2.531 Unknown [id number] 2.16.840.1.514129.3.579. 2.531 Unknown [id number] 2.16.840.1.093284.3.579. 2.531 Unknown [id number] 2.16.840.1.183595.3.579. 2.531 Unknown [id number] 2.16.840.1.608842.3.579. 2.531 Unknown [id number] 2.16.840.1.945586.3.579. 2.531 Unknown [id number] 2.16.840.1.426466.3.579. 2.531 Unknown [id number] 2.16.840.1.040509.3.579. 2.531 Social History Date Type Detail Facility Start: 02-10-2023 End: 06-15-2024 No illicit drug use No illicit drug use [facility] Work Phone: Comment on above: quit , 1 PPD; Start: 02-10-2023 End: 05-20-2024 Tobacco smoking status NHIS Ex-smoker [facility] Work Phone: End: 03-22-1992 History of tobacco use Current smoker [facility] Work Phone: End: 03-22-1992 History of tobacco use Cigarette Smoker [facility] Work Phone: Start: 02-10-2023 End: 08-25-2023 Tobacco use and exposure Smokeless tobacco non-user [facility] Work Phone: Start: 02-10-2023 End: 06-15-2024 Alcohol intake Lifetime non-drinker (finding) [facility] Work Phone: Start: 02-10-2023 End: 06-15-2024 Tobacco use panel [facility] Work Phone: Start: 1945 Sex Assigned At Not on file [facility] Work Phone: Start: 01-31-2023 End: 06-15-2024 Exposure to SARS-CoV-2 (event) Not sure [facility] Start: 10-11-2022 [facility] ever [facility] Work Phone: Start: 03-30-2024 Sex Patient sex un known (finding) [facility] Start: 1945 Sex Assigned At Male F [facility] Start: 05-13-2024 End: 08-18-2024 Sex Male (finding) [facility] Start: 05-11-2024 End: 05-24-2024 SDOH Follow up SDOH Follow up [facility] Work Phone: Goals Date Patient Goal Desired Activity /State Functional Status Date Assessment Result Facility 05-27-2024 Functional status Patient is Pro gressing Toward [facility] Work Phone: 05-13-2024 Functional status Patient is Pro gressing Toward [facility] Work Phone: Mental Status Date Assessment Result Facility 05-27-2024 Cognitive function Cognitive Sta tus Patient at [facility] Work Phone: 05-13-2024 Cognitive function Cognitive Sta tus Patient at [facility] Work Phone: Clinical Notes 05-14-2022 to 09-21-2024 Osvaldo Dickinson MD - 06/15/2024 2:30 PM EDTPatient Instructions Note Date & Type Note Facility 09-21-2024 Note Patient Education Obstetrics and Gynecology Urinary Tract Infection, Adult A urinary tract infection (UTI) is an infection of any part of the urinary tract. The urinary tract includes the kidneys, ureters, bladder, and urethra. These organs make, store, and get rid of urine in the body. An upper UTI affects the ureters and kidneys. A lower UTI affects the bladder and urethra. What are the causes? Most urinary tract infections are caused by bacteria in your genital area around your urethra, where urine leaves your body. These bacteria grow and cause inflammation of your urinary tract. What increases the risk? You are more likely to develop this condition if: ??? You have a urinary catheter that stays in place. ??? You are not able to control when you urinate or have a bowel movement (incontinence). ??? You are female and you: ? Use a spermicide or diaphragm for control. ? Have low estrogen levels. ? Are . ??? You have certain genes that increase your risk. ??? You are sexually active. ??? You take antibiotic medicines. ??? You have a condition that causes your flow of urine to slow down, such as: ? An enlarged prostate, if you are male. ? Blockage in your urethra. ? A kidney stone. ? A nerve condition that affects your bladder control (neurogenic bladder). ? Not getting enough to drink, or not urinating often. ??? You have certain medical conditions, such as: ? Diabetes. ? A weak disease-fighting system (immunesystem). ? Sickle cell disease. ? Gout. ? Spinal cord injury. What are the signs or symptoms? Symptoms of this condition include: ??? Needing to urinate right away (urgency). ??? Frequent urination. This may include small amounts of urine each time you urinate. ??? Pain or burning with urination. ??? Blood in the urine. ??? Urine that smells bad or unusual. ??? Trouble urinating. ??? Cloudy urine. ??? Vaginal discharge, if you are female. ??? Pain in the abdomen or the lower back. You may also have: ??? Vomiting or a decreased appetite. ??? Confusion. ??? Irritability or tiredness. ??? A fever or chills. ??? Diarrhea. The first symptom in older adults may be confusion. In some cases, they may not have any symptoms until the infection has worsened. How is this diagnosed? This condition is diagnosed based on your medical history and a physical exam. You may also have other tests, including: ??? Urine tests. ??? Blood tests. ??? Tests for STIs (sexually transmitted infections). If you have had more than one UTI, a cystoscopy or imaging studies may be done to determine the cause of the infections. How is this treated? Treatment for this condition includes: ??? Antibiotic medicine. ??? Hlgu-jcl-dcdwoxe medicines to treat discomfort. ??? Drinking enough water to stay hydrated. If you have frequent infections or have other conditions such as a kidney stone, you may need to see a health care provider who specializes in the urinary tract (urologist). In rare cases, urinary tract infections can cause sepsis. Sepsis is a life-threatening condition that occurs when the body responds to an infection. Sepsis is treated in the hospital with IV antibiotics, fluids, and other medicines. Follow these instructions at home: Medicines ??? Take xngv-jki-plkqjkn and prescription medicines only as told by your health care provider. ??? If you were prescribed an antibiotic medicine, take it as told by your health care provider. Do not stop using the antibiotic even if you start to feel better. General instructions ??? Make sure you: ? Empty your bladder often and completely. Do not hold urine for long periods of time. ? Empty your bladder after sex. ? Wipe from front to back after urinating or having a bowel movement if you are female. Use each tissue only one time when you wipe. ??? Drink enough fluid to keep your urine pale yellow. ??? Keep all follow-up visits. This is important. Contact a health care provider if: ??? Your symptoms do not get better after 1?2 days. ??? Your symptoms go away and then return. Get help right away if: ??? You have severe pain in your back or your lower abdomen. ??? You have a fever or chills. ??? You have nausea or vomiting. Summary ??? A urinary tract infection (UTI) is an infection of any part of the urinary tract, which includes the kidneys, ureters, bladder, and urethra. ??? Most urinary tract infections are caused by bacteria in your genital area. ??? Treatment for this condition often includes antibiotic medicines. ??? If you were prescribed an antibiotic medicine, take it as told by your health care provider. Do not stop using the antibiotic even if you start to feel better. ??? Keep all follow-up visits. This is important. This information is not intended to replace advice given to you by your health care provider. Make sure you di (more content not included)... [facility] 08-24-2024 Note Patient Education Obstetrics and Gynecology Urinary Tract Infection, Adult A urinary tract infection (UTI) is an infection of any part of the urinary tract. The urinary tract includes the kidneys, ureters, bladder, and urethra. These organs make, store, and get rid of urine in the body. An upper UTI affects the ureters and kidneys. A lower UTI affects the bladder and urethra. What are the causes? Most urinary tract infections are caused by bacteria in your genital area around your urethra, where urine leaves your body. These bacteria grow and cause inflammation of your urinary tract. What increases the risk? You are more likely to develop this condition if: ??? You have a urinary catheter that stays in place. ??? You are not able to control when you urinate or have a bowel movement (incontinence). ??? You are female and you: ? Use a spermicide or diaphragm for control. ? Have low estrogen levels. ? Are . ??? You have certain genes that increase your risk. ??? You are sexually active. ??? You take antibiotic medicines. ??? You have a condition that causes your flow of urine to slow down, such as: ? An enlarged prostate, if you are male. ? Blockage in your urethra. ? A kidney stone. ? A nerve condition that affects your bladder control (neurogenic bladder). ? Not getting enough to drink, or not urinating often. ??? You have certain medical conditions, such as: ? Diabetes. ? A weak disease-fighting system (immunesystem). ? Sickle cell disease. ? Gout. ? Spinal cord injury. What are the signs or symptoms? Symptoms of this condition include: ??? Needing to urinate right away (urgency). ??? Frequent urination. This may include small amounts of urine each time you urinate. ??? Pain or burning with urination. ??? Blood in the urine. ??? Urine that smells bad or unusual. ??? Trouble urinating. ??? Cloudy urine. ??? Vaginal discharge, if you are female. ??? Pain in the abdomen or the lower back. You may also have: ??? Vomiting or a decreased appetite. ??? Confusion. ??? Irritability or tiredness. ??? A fever or chills. ??? Diarrhea. The first symptom in older adults may be confusion. In some cases, they may not have any symptoms until the infection has worsened. How is this diagnosed? This condition is diagnosed based on your medical history and a physical exam. You may also have other tests, including: ??? Urine tests. ??? Blood tests. ??? Tests for STIs (sexually transmitted infections). If you have had more than one UTI, a cystoscopy or imaging studies may be done to determine the cause of the infections. How is this treated? Treatment for this condition includes: ??? Antibiotic medicine. ??? Wgmx-chf-hfkqvxk medicines to treat discomfort. ??? Drinking enough water to stay hydrated. If you have frequent infections or have other conditions such as a kidney stone, you may need to see a health care provider who specializes in the urinary tract (urologist). In rare cases, urinary tract infections can cause sepsis. Sepsis is a life-threatening condition that occurs when the body responds to an infection. Sepsis is treated in the hospital with IV antibiotics, fluids, and other medicines. Follow these instructions at home: Medicines ??? Take ofdl-lwh-ypkftyz and prescription medicines only as told by your health care provider. ??? If you were prescribed an antibiotic medicine, take it as told by your health care provider. Do not stop using the antibiotic even if you start to feel better. General instructions ??? Make sure you: ? Empty your bladder often and completely. Do not hold urine for long periods of time. ? Empty your bladder after sex. ? Wipe from front to back after urinating or having a bowel movement if you are female. Use each tissue only one time when you wipe. ??? Drink enough fluid to keep your urine pale yellow. ??? Keep all follow-up visits. This is important. Contact a health care provider if: ??? Your symptoms do not get better after 1?2 days. ??? Your symptoms go away and then return. Get help right away if: ??? You have severe pain in your back or your lower abdomen. ??? You have a fever or chills. ??? You have nausea or vomiting. Summary ??? A urinary tract infection (UTI) is an infection of any part of the urinary tract, which includes the kidneys, ureters, bladder, and urethra. ??? Most urinary tract infections are caused by bacteria in your genital area. ??? Treatment for this condition often includes antibiotic medicines. ??? If you were prescribed an antibiotic medicine, take it as told by your health care provider. Do not stop using the antibiotic even if you start to feel better. ??? Keep all follow-up visits. This is important. This information is not intended to replace advice given to you by your health care provider. Make sure you di (more content not included)... [facility] 07-24-2024 Note Patient Education [facility] [place], [place] Post-Operative Instructions for UroLift After your [...] for 24 hours (more content not included)... [facility] 06-26-[address] [facility] enter 06-15-2024 History of Present illness Narrative Chief Complaint Patient presents with Follow[facility]up [facility] [place] for heart failure Subjective Leighton Arciniega [...] classic RV paced induced cardiomyopathy. Patient currently detention. He report improvement of his symptoms. He [...] Judgment: Judgment normal. Allergies Enalapril, Metoprolol, and [place] Current Medications Current Outpatient Medications: acetaminophen (TylenoL) [...] Panel 8. Non-smoker 9. BMI 27.0-27.9,adult 10. [facility] resident Scribe Attestation By signing my name below, I, Betzaida Whitt LPN , Deon attest that this documentation has been prepared [...] discussion and plan. documented in this encounter [facility] Work Phone: 06-15-2024 Instructions Betzaida Denney [...] months with ekg documented in this encounter [facility] Work Phone: 05-26-2024 Progress note Note Date/Time May 26, 2024 1:15pm [facility] [address] [place], [place] [id number] Hospitalist Progress Note Signed Patient: Leighton Arciniega MR#: [id number] : 1945 Acct:[id number] Age/Sex: 78 / M Adm Date: 5 Loc: 3T Room: [address] [place] [address] Type: ADM IN Attending Dr: Richard Zamora [...] 05/20/24 09:00 05/26/24 09:05 Pantoprazole 40 Mg Tablet.Dr PO 05/20/25 08:59 [...] Patient has demonstrated optimal compliance is extremely religion about using his sleep apnea machine. Code: [...] <Electronically signed by Richard Zamora DO> 05/26/24 [facility] Work Phone: 1(105) 107-765203-07-2025 [place] [address] Hospitalist Progress Note Signed Patient: Leighton Arciniega MR#: [id number] : 1945 Acct:[id number] Age/Sex: 78 / M Adm Date: 5 Loc: 3T Room: [address] [place] [address] Type: ADM IN Attending Dr: Richard Zamora [...] Ml SUBCUT 05/20/25 07:59 Not Given TID.WM.HS [facility] Protocol Insulin Aspart 0 units 05/22/24 17:00 [...] 05/20/24 09:00 05/26/24 09:05 Pantoprazole 40 Mg Tablet.Dr PO 05/20/25 08:59 [...] Patient has demonstrated optimal compliance is extremely religion about using his sleep apnea machine. Code: [...] Richard Zamora DO 1049 Signed By: 05/26/[address] [place], [place] 3222803-06-2025 Progress note Author Darshan Willams [facility] Note Date/Time May 25, 2024 7:18 pm [facility] [address] [place] [address] Pulmonology Progress Note Signed Patient: Leighton Arciniega MR#: [id number] : 1945 Acct:[id number] Age/Sex: 78 / M Adm Date: 5 Loc: Room: [address] [place] [address] Type: ADM IN Attending Dr: Richard Zamora [...] <Electronically signed by MD Darshan Willams> 05/25/242017 [facility] Work Phone: 1(232) 847-205203-06-2025 [place] [address] Pulmonology Progress Note Signed Patient: Leighton Arciniega MR#: [id number] : 1945 Acct:[id number] Age/Sex: 78 / M Adm Date: Loc: Room: [address] [place] [address] Type: ADM IN Attending Dr: Richard Zamora [...] Darshan Willams MD 2013 Signed By: 05/25/242017 [facility]03-06-2025 Progress note Author Richard Zamora [facility] Note Date/Time May 25, 2024 2:21 pm [facility] [address] [place] [address] Hospitalist Progress Note Signed Patient: Leighton Arciniega MR#: [id number] : 1945 Acct:[id number] Age/Sex: 78 / M Adm Date: Loc: 3T Room: [address] [place] [address] Type: ADM IN Attending Dr: Richard Zamora [...] 05/20/24 09:00 05/25/24 08:55 Pantoprazole 40 Mg Tablet.Dr PO 05/20/25 08:59 [...] 1019 Signed By: <Electronically signed by Richard Zamora, > 05/25/24 1521 [facility] Work Phone: 1(711) 187-908003-06-[address] [address] Hospitalist Progress Note Signed Patient: Leighton Arciniega MR#: [id number] : 1945 Acct:[id number] Age/Sex: 78 / M Adm Date: 5 Loc: 3T Room: [address] [place] [address] Type: ADM IN Attending Dr: Richard Zamora [...] 05/20/24 09:00 05/25/24 08:55 Pantoprazole 40 Mg Tablet.Dr PO 05/20/25 08:59 [...] Zamora DO 1019 Signed By: 05/25/24 1521 [facility]03-06-2025 Progress note Author W Wes [facility] Note Date/Time May 25, 2024 9:47 am [facility] [address] [place] [address] Cardiology Progress Note Signed Patient: Leighton Arciniega MR#: [id number] : 1945 Acct:[id number] Age/Sex: 78 / M Adm Date: 5 Loc: Room: [address] [place] [address] Type: ADM IN Attending Dr: Richard Zamora DO Copies to: ~ Date of Service: 05/25/2024 Subjective Principal diagnosis: CHF management Interval history: Mr. Arciniega is a 78-year-old male who was admitted to [facility] on 05/19/2023 with hypoxic respiratory failure due to pneumonia and CHF. Chest x-rayyesterday shows bilateral opacities due to pneumonia versus CHF. [facility] and underwent diuresis and eventual discharge to SNF. He was discharged on Bumex p.o. which he would have been getting at the SNF. He has known CHF with an EF of 20-25%. Plans were made for outpatient stress MPI and his follow-up appointment at [facility] was scheduled for 06/15/2024. However due to worsening respiratory function he is nowreadmitted to the hospital. He was stabilized on BiPAP. Continues to have some coughing but is feeling better. Last [facility] was normal but was at [facility] in 2013. Interim evaluation 05/21/2024: No acute events. Resp [...] % (Auto) 90.0 Lymph % (Auto) 5.6 [place] % (Auto) 4.1 Eos % (Auto) 0.0 Baso % (Auto) 0.3 Nucleat RBC Rel Count 0.2 Neut # (Auto) 7.6 Lymph # (Auto) 0.[address] [place] # (Auto) 0.3 Eos # (Auto) 0.0 [...] indwelling Gomez catheter due to BPH. 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 Echo 05/11/24 [...] signed by Shirley Harvey DO> 05/25/[address] [facility] Work Phone: 1(313) 871-183603-06-2025 [place] [address] Cardiology Progress Note Signed Patient: Leighton Arciniega MR#: [id number] : 1945 Acct:[id number] Age/Sex: 78 / M Adm Date: 5 Loc: Room: [address] [place] [address] Type: ADM IN Attending Dr: Richard Zamora DO Copies to: ~ Date of Service: 05/25/2024 Subjective Principal diagnosis: CHF management Interval history: Mr. Arciniega is a 78-year-old male who was admitted to [facility] on 05/19/2023 with hypoxic respiratory failure due to pneumonia and CHF. Chest x- rayyesterday shows bilateral opacities due to pneumonia versus CHF. He was recentlyadmitted at [facility] for CHF exacerbation and underwent diuresis and eventual discharge to SNF. He was discharged on Bumex p.o. which he would have been getting atthe SNF. He has known CHF with an EF of 20-25%. Plans were made for outpatient stress MPI and his follow-up appointment at [facility] was scheduled for 06/15/2024. However due to worsening respiratory function he is nowreadmitted to the hospital. He was stabilized on BiPAP. Continues to have some coughing but is feeling better. Last [facility] was normal but was at [facility] in 2012. Interim evaluation 05/21/2024: No acute [...] note patient seen and evaluated with Dr. Caopne, serum creatinine climbing with IV loop diuresis [...] % (Auto) 90.0 Lymph % (Auto) 5.6 [place] % (Auto) 4.1 Eos % (Auto) 0.0 Baso % (Auto) 0.3 Nucleat RBC Rel Count 0.2 Neut # (Auto) 7.6 Lymph # (Auto) 0.[address] [place] # (Auto) 0.3 Eos # (Auto) 0.0 [...] indwelling Gomez catheter due to BPH. 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 Echo 05/11/24 [...] DO 05/25/24 1044 Signed By: 05/25/24 1047 [facility]03-05-2025 Progress note Author Darshan Willams [facility] Note Date/Time May 24, 2024 5:49 pm [facility] [address] [place] [address] Pulmonology Progress Note Signed Patient: Leighton Arciniega MR#: [id number] : 1945 Acct:[id number] Age/Sex: 78 / M Adm Date: 5 Loc: Room: [address] [place] [address] Type: ADM IN Attending Dr: Richard Zamora [...] care Documented By: Darshan Willams MD 5 [id number] Signed By: <Electronically signed by MD Darshan Willams> 05/24/[address] [facility] Work Phone: 1(394) 707-729003-05-2025 [place] [id number] Pulmonology Progress Note Signed Patient: Leighton Arciniega MR#: [id number] : 1945 Acct:[id number] Age/Sex: 78 / M Adm Date: 5 Loc: 3T Room: [address] [place] [address] Type: ADM IN Attending Dr: Richard Zamora [...] decreasing after aggressive diuresis with patient on [id number] mg IV every 12 hours * Repeat 2 view CXR tomorrow, if significant decrease in bilateral infiltrates, will taper steroidsquickly as more likely this is response to diuresis. * Continue supportive care Documented By: Darshan Willams MD 5 0754 Signed By: 05/24/24 1849 [facility]03-05-2025 Progress note Author W Wes [facility] Note Date/Time May 24, 2024 3:34 pm [facility] [address] [place] [address] Cardiology Progress Note Signed Patient: Leighton Arciniega MR#: [id number] : 1945 Acct:[id number] Age/Sex: 78 / M Adm Date: Loc: Room: [address] [place] [address] Type: ADM IN Attending Dr: Richard Zamora DO Copies to: ~ Date of Service: 05/24/2024 Subjective Principal diagnosis: CHF management Interval history: Mr. Arciniega is a 78-year-old male who was admitted to [facility] on 05/19/2023 with hypoxic respiratory failure due to pneumonia and CHF. Chest x-rayyesterday shows bilateral opacities due to pneumonia versus CHF. He was recentlyadmitted at [facility] for CHF exacerbation and underwent diuresis and eventual discharge to SNF. He was discharged on Bumex p.o. which he would have been getting at the SNF. He has known CHF with an EF of 20-25%. Plans were made for outpatient stress MPI and his follow-up appointment at [facility] was scheduled for 06/15/2024. However due to worsening respiratory function he is nowreadmitted to the hospital. He was stabilized on BiPAP. Continues to have some coughing but is feeling better. Last [facility] was normal but was at [facility] in 2013. Interim evaluation 05/21/2024: No acute events. Resp [...] MPV Neut % (Auto) Lymph % (Auto) [place] % (Auto) Eos % (Auto) Baso % (Auto) Nucleat RBC Rel Count Neut # (Auto) Lymph # (Auto) [place] # (Auto) Eos # (Auto) Baso # [...] % (Auto) 91.0 Lymph % (Auto) 5.0 [place] % (Auto) 3.3 Eos % (Auto) 0.1 Baso % (Auto) 0.6 Nucleat RBC Rel Count 0.1 Neut # (Auto) 8.0 H Lymph # (Auto) 0.[address] [place] # (Auto) 0.3 Eos # (Auto) 0.0 [...] indwelling Gomez catheter due to BPH. 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 Echo 05/11/24 [...] <Electronically signed by Shirley Harvey DO> 05/24/24 1631 [facility] Work Phone: 1([phone]) 481-694203-05-2025 Progress note Author Shirley Harvey [facility] Note Date/Time May 24, 2024 3:33 pm [facility] [address] [place] [address] Cardiology Progress Note Signed Patient: Leighton Arciniega MR#: [id number] : 1945 Acct:[id number] Age/Sex: 78 / M Adm Date: 5 Loc: Room: [address] [place] [address] Type: ADM IN Attending Dr: Richard Zamora DO Copies to: ~ Date of Service: 05/23/2024 Subjective Principal diagnosis: CHF management Interval history: Mr. Arciniega is a 78-year-old male who was admitted to [facility] on 05/19/2023 with hypoxic respiratory failure due to pneumonia and CHF. Chest x-rayyesterday shows bilateral opacities due to pneumonia versus CHF. He was recentlyad[facility] at [facility] for CHF exacerbation and underwent diuresis and eventual discharge to SNF. He was discharged on Bumex p.o. which he would have been getting at the SNF. He has known CHF with an EF of 20-25%. Plans were made for outpatient stress MPI and his follow-up appointment at [facility] Cardiology was scheduled for 06/15/2024. However due to worsening respiratory function he is nowreadmitted to the hospital. He was stabilized on BiPAP. Continues to have some coughing but is feeling better. Last [facility] was normal but was at [facility] in 2012. Interim evaluation 05/21/2024: No acute [...] MPV Neut % (Auto) Lymph % (Auto) [place] % (Auto) Eos % (Auto) Baso % (Auto) Nucleat RBC Rel Count Neut # (Auto) Lymph # (Auto) [place] # (Auto) Eos # (Auto) Baso # [...] % (Auto) 91.7 Lymph % (Auto) 4.2 [place] % (Auto) 3.9 Eos % (Auto) 0.0 Baso % (Auto) 0.2 Nucleat RBC Rel Count 0.1 Neut # (Auto) 7.1 Lymph # (Auto) 0.[address] [place] # (Auto) 0.3 Eos # (Auto) 0.0 [...] indwelling Gomez catheter due to BPH. Primary plant pathologist: [facility] 2012 at [facility] - was normal per notes. Echo 05/11/24 [...] <Electronically signed by Shirley Harvey DO> 05/24/24 8602 [facility] Work Phone: 1(235) 557-704603-05-2025 Progress note Author Richard Zamora [facility] Note Date/Time May 24, 2024 1:58 pm [facility] [address] [place] [address] Hospitalist Progress Note Signed Patient: Leighton Arciniega MR#: [id number] : 1945 Acct:[id number] Age/Sex: 78 / M Adm Date: 5 Loc: Room: [address] [place] [address] Type: ADM IN Attending Dr: Richard Zamora [...] <Electronically signed by Richard Zamora DO> 05/24/[address] [facility] Work Phone: 1([phone]) 209-983503-05-2025 [place] [address] Cardiology Progress Note Signed Patient: Leighton Arciniega MR#: [id number] : 1945 Acct:[id number] Age/Sex: 78 / M Adm Date: 5 Loc: Room: [address] [place] [address] Type: ADM IN Attending Dr: Richard Zamora DO Copies to: ~ Date of Service: 05/24/2024 Subjective Principal diagnosis: CHF management Interval history: Mr. Arciniega is a 78-year-old male who was admitted to [facility] on 05/19/2023 with hypoxic respiratory failure due to pneumonia and CHF. Chest x- rayyesterday shows bilateral opacities due to pneumonia versus CHF. He was recentlyadmitted at [facility] for CHF exacerbation and underwent diuresis and eventual discharge to SNF. He was discharged on Bumex p.o. which he would have been getting atthe SNF. He has known CHF with an EF of 20-25%. Plans were made for outpatient stress MPI and his follow-up appointment at [facility] Cardiology was scheduled for 06/15/2024. However due to worsening respiratory function he is nowreadmitted to the hospital. He was stabilized on BiPAP. Continues to have some coughing but is feeling better. Last [facility] was normal but was at [facility] in 2013. Interim evaluation 05/21/2024: No acute events. Resp [...] MPV Neut % (Auto) Lymph % (Auto) [place] % (Auto) Eos % (Auto) Baso % (Auto) Nucleat RBC Rel Count Neut # (Auto) Lymph # (Auto) [place] # (Auto) Eos # (Auto) Baso # [...] % (Auto) 91.0 Lymph % (Auto) 5.0 [place] % (Auto) 3.3 Eos % (Auto) 0.1 Baso % (Auto) 0.6 Nucleat RBC Rel Count 0.1 Neut # (Auto) 8.0 H Lymph # (Auto) 0.[address] [place] # (Auto) 0.3 Eos # (Auto) 0.0 [...] indwelling Gomez catheter due to BPH. 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 Echo 05/11/24 [...] DO 05/24/24 1330 Signed By: 05/24/24 1634 [facility]03-05-2025 [place] [address] Cardiology Progress Note Signed Patient: Leighton Arciniega MR#: [id number] : 1945 Acct:[id number] Age/Sex: 78 / M Adm Date: 5 Loc: Room: [address] [place] [address] Type: ADM IN Attending Dr: Richard Zamora DO Copies to: ~ Date of Service: 05/23/2024 Subjective Principal diagnosis: CHF management Interval history: Mr. Arciniega is a 78-year-old male who was admitted to [facility] on 05/19/2023 with hypoxic respiratory failure due to pneumonia and CHF. Chest x- rayyesterday shows bilateral opacities due to pneumonia versus CHF. He was recentlyadmitted at [facility] for CHF exacerbation and underwent diuresis and eventual discharge to SNF. He was discharged on Bumex p.o. which he would have been getting atthe SNF. He has known CHF with an EF of 20-25%. Plans were made for outpatient stress MPI and his follow-up appointment at [facility] Cardiology was scheduled for 06/15/2024. However due to worsening respiratory function he is nowreadmitted to the hospital. He was stabilized on BiPAP. Continues to have some coughing but is feeling better. Last [facility] was normal but was at [facility] in 2012. Interim evaluation 05/21/2024: No acute [...] MPV Neut % (Auto) Lymph % (Auto) [place] % (Auto) Eos % (Auto) Baso % (Auto) Nucleat RBC Rel Count Neut # (Auto) Lymph # (Auto) [place] # (Auto) Eos # (Auto) Baso # [...] % (Auto) 91.7 Lymph % (Auto) 4.2 [place] % (Auto) 3.9 Eos % (Auto) 0.0 Baso % (Auto) 0.2 Nucleat RBC Rel Count 0.1 Neut # (Auto) 7.1 Lymph # (Auto) 0.[address] [place] # (Auto) 0.3 Eos # (Auto) 0.0 [...] indwelling Gomez catheter due to BPH. 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 Echo 05/11/24 [...] Harvey DO 05/23/24 1216 Signed By: 05/24/24 1633 [facility]03-05-2025 [place] [address] Hospitalist Progress Note Signed Patient: Leighton Arciniega MR#: [id number] : 1945 Acct:[id number] Age/Sex: 78 / M Adm Date: 5 Loc: 3T Room: [address] [place] [address] Type: ADM IN Attending Dr: Richard Zamora [...] Zamora DO 0956 Signed By: 05/24/24 1458 [facility]03-04-2025 Progress note Author Richard Zamora [facility] Note Date/Time May 23, 2024 4:42 pm [facility] [address] [place] [address] Hospitalist Progress Note Signed Patient: Leighton Arciniega MR#: [id number] : 1945 Acct:[id number] Age/Sex: 78 / M Adm Date: 5 Loc: Room: [address] [place] [address] Type: ADM IN Attending Dr: Richard Zamora [...] Ml SUBCUT 05/20/25 07:59 24 units TID.WM.HS [facility] Administration Protocol Insulin Aspart 0 units 05/22/24 17:00 05/23/24 14:17 Insulin Aspart 300 Units/3 Ml SUBCUT 05/22/25 16:59 6 units TID.WITH.MEALS [facility] Administration Protocol Insulin Glargine 35 units 05/23/24 21:00 Insulin Glargine 300 Units/3 Ml Insuln.Pen SUBCUT 05/23/25 20:59 BID [facility] Magnesium Oxide 400 mg 05/23/24 09:00 05/23/24 10:15 Magnesium Oxide 400 Mg Tablet PO 05/23/25 08:59 400 mg DAILY BRYAN Administration Melatonin 5 mg 05/20/24 03:03 03/02/25 21:26 Melatonin 5 Mg Tablet PO 05/20/25 [...] attending physician. Documented By: Richard Zamora DO 3919 Signed By: <Electronically signed by Richard Zamora DO> 05/23/[address] [facility] Work Phone: 1([phone]) [phone] [place] [address] Hospitalist Progress Note Signed Patient: Leighton Arciniega MR#: [id number] : 1945 Acct:[id number] Age/Sex: 78 / M Adm Date: Loc: 3T Room: [address] [place] [address] Type: ADM IN Attending Dr: Richard Zamora [...] Zamora DO 1604 Signed By: 05/23/24 1742 [facility]03-04-2025 Progress note Author Darshna Willams [facility] Note Date/Time May 23, 2024 1:15 pm [facility] [address] [place] [address] Pulmonology Progress Note Signed Patient: Leighton Arciniega MR#: [id number] : 1945 Acct:[id number] Age/Sex: 78 / M Adm Date: 5 Loc: Room: [address] [place] [address] Type: ADM IN Attending Dr: Richard Zamora [...] 0901 Signed By: <Electronically signed by MD Darshan Willasm> 05/23/24 [facility] Work Phone: [phone] 463-541803-04-2025 Nuclear medicine Diagnostic study note [place] [address] Nuclear Medicine Report Signed Patient: Leighton Arciniega MR#: [id number] : 1945 Acct:[id number] Age/Sex: 78 / M ADM Date: 5 Loc: Room: [address] [place] [address] Type: ADM IN Attending Dr: Richard Zamora DO Copies to: MD Richard Celeste, ~ Ordering Provider: John Nettles MD Date of Service: 05/23/24 NM/NM nelson perf SPECT rest & str: *Dose ordered chf NUCLEAR MYOCARDIAL PERFUSION DATE OF PROCEDURE: 05/23/2024 ATTENDING MEDICAL AIDES TEACHER: Dr. John Nettles REQUESTING PHYSICIAN: Dr. Harvey [...] John Nettles M.D.05/23/2024 2:23 PM Dictation Location: [place] [address] Transcribed By: [place] 05/23/24 1423 Dictated By: John Nettles MD 05/23/24 1417 Signed By: 05/23/24 1423 [facility] Work Phone: [phone]) [phone] [place] [address] Pulmonology Progress Note Signed Patient: Leighton Arciniega MR#: [id number] : 1945 Acct:[id number] Age/Sex: 78 / M Adm Date: 5 Loc: Room: [address] [place] [address] Type: ADM IN Attending Dr: Richard Zamora [...] Darshan Willams MD 5 0901 Signed By: 05/23/24 1415 [facility]03-04-2025 Progress note Author W Wes [facility] Note Date/Time May 23, 2024 9:32 am [facility] [address] [place] [address] Cardiology Progress Note Signed Patient: Leighton Arciniega MR#: [id number] : 1945 Acct:[id number] Age/Sex: 78 / M Adm Date: Loc: Room: [address] [place] [address] Type: ADM IN Attending Dr: Richard Zamora DO Copies to: ~ Date of Service: 05/22/2024 Subjective Principal diagnosis: CHF management Interval history: Mr. Arciniega is a 78-year-old male who was admitted to [facility] on 05/19/2023 with hypoxic respiratory failure due to pneumonia and CHF. Chest x-rayyesterday shows bilateral opacities due to pneumonia versus CHF. He was recentlyadmitted at [facility] for CHF exacerbation and underwent diuresis and eventual discharge to SNF. He was discharged on Bumex p.o. which he would have been getting at the SNF. He has known CHF with an EF of 20-25%. Plans were made for outpatient stress MPI and his follow-up appointment at [facility] Cardiology was scheduled for 06/15/2024. However due to worsening respiratory function he is nowreadmitted to the hospital. He was stabilized on BiPAP. Continues to have some coughing but is feeling better. Last [facility] was normal but was at [facility] in 2012. Interim evaluation 05/21/2024: No acute [...] MPV Neut % (Auto) Lymph % (Auto) [place] % (Auto) Eos % (Auto) Baso % (Auto) Nucleat RBC Rel Count Neut # (Auto) Lymph # (Auto) [place] # (Auto) Eos # (Auto) Baso # [...] % (Auto) 93.1 Lymph % (Auto) 4.8 [place] % (Auto) 1.6 Eos % (Auto) 0.0 Baso % (Auto) 0.5 Nucleat RBC Rel Count 0.0 Neut # (Auto) 5.0 Lymph # (Auto) 0.[address] [place] # (Auto) 0.1 Eos # (Auto) 0.0 [...] indwelling Gomez catheter due to BPH. 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 Echo 05/11/24 [...] Shirley Harvey DO 05/22/24 1241 Signed By: <Electronically signed by Shirley Harvey DO> 05/23/[address] [facility] Work Phone: 1([phone]) [phone] [place] [address] Cardiology Progress Note Signed Patient: Leighton Arciniega MR#: [id number] : 1945 Acct:[id number] Age/Sex: 78 / M Adm Date: 5 Loc: Room: 2J1028-9 Type: ADM IN Attending Dr: Richard Zamora DO Copies to: ~ Date of Service: 05/22/2024 Subjective Principal diagnosis: CHF management Interval history: Mr. Arciniega is a 78-year-old male who was admitted to [facility] on 05/19/2023 with hypoxic respiratory failure due to pneumonia and CHF. Chest x- rayyesterday shows bilateral opacities due to pneumonia versus CHF. He was recentlyadmitted at [facility] for CHF exacerbation and underwent diuresis and eventual discharge to SNF. He was discharged on Bumex p.o. which he would have been getting atthe SNF. He has known CHF with an EF of 20-25%. Plans were made for outpatient stress MPI and his follow-up appointment at [facility] Cardiology was scheduled for 06/15/2024. However due to worsening respiratory function he is nowreadmitted to the hospital. He was stabilized on BiPAP. Continues to have some coughing but is feeling better. Last [facility] was normal but was at [facility] in 2012. Interim evaluation 05/21/2024: No acute [...] MPV Neut % (Auto) Lymph % (Auto) [facility] % (Auto) Eos % (Auto) Baso % (Auto) Nucleat RBC Rel Count Neut # (Auto) Lymph # (Auto) [facility] # (Auto) Eos # (Auto) Baso # [...] % (Auto) 93.1 Lymph % (Auto) 4.8 [place] % (Auto) 1.6 Eos % (Auto) 0.0 Baso % (Auto) 0.5 Nucleat RBC Rel Count 0.0 Neut # (Auto) 5.0 Lymph # (Auto) 0.[address] [place] # (Auto) 0.1 Eos # (Auto) 0.0 [...] indwelling Gomez catheter due to BPH. 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 Echo 05/11/24 [...] DO 05/22/24 1241 Signed By: 05/23/24 1032 [facility]03-03-2025 Progress note Author Darshan Willams [facility] Note Date/Time May 22, 2024 6:06 pm [facility] [address] [place] [address] Pulmonology Progress Note Signed Patient: Leighton Arciniega MR#: [id number] : 1945 Acct:[id number] Age/Sex: 78 / M Adm Date: 5 Loc: Room: [address] [place] [address] Type: ADM IN Attending Dr: Richard Zamora [...] at bedside Documented By: Darshan Willams MD 1899 Signed By: <Electronically signed by MD Darshan Willams> 05/22/241905 [facility] Work Phone: 1([phone]) 444-958803-03-2025 [place] [address] Pulmonology Progress Note Signed Patient: Leighton Arciniega MR#: [id number] : 1945 Acct:[id number] Age/Sex: 78 / M Adm Date: Loc: Room: [address] [place] [address] Type: ADM IN Attending Dr: Richard Zamora [...] at bedside Documented By: Darshan Willams MD 1899 Signed By: 05/22/241905 [facility]03-03-2025 Progress note Author Richard Zamora [facility] Note Date/Time May 22, 2024 1:52 pm [facility] [address] [place] [address] Hospitalist Progress Note Signed Patient: Leighton Arciniega MR#: [id number] : 1945 Acct:[id number] Age/Sex: 78 / M Adm Date: Loc: Room: 8T9907-6 Type: ADM IN Attending Dr: Richard Zamora [...] 1058 Signed By: <Electronically signed by Richard Zamora, > 05/22/[address] [facility] Work Phone: [phone]) 390-546703-03-[address] [address] Hospitalist Progress Note Signed Patient: Leighton Arciniega MR#: [id number] : 1945 Acct:[id number] Age/Sex: 78 / M Adm Date: 5 Loc: Room: [address] [place] [address] Type: ADM IN Attending Dr: Richard Zamora [...] Final Light Normal Respiratory Elin 2 Days 03/01/25 18:20 Sputum - Expectorated Gram Stain - Final Meds Allergies and Active Meds Allergies fosinopril Allergy (Verified 05/09/24 19:59) SOB metoprolol Allergy (Verified 05/09/24 19:59) Hypotension strawberry Allergy (Verified 05/09/24 19:59) Rash Active Meds: Active Medications Generic Name Dose Route Start Last Admin Trade Name Jeredq PRN Reason Stop Dose Admin Acetaminophen 650 [...] Zamora DO 1058 Signed By: 05/22/24 1452 [facility]03-02-2025 Progress note Author John Nettles [facility] Note Date/Time May 21, 2024 3:04 pm [facility] [address] [place] [address] Cardiology Progress Note Signed Patient: Leighton Arciniega MR#: [id number] : 1945 Acct:[id number] Age/Sex: 78 / M Adm Date: 5 Loc: Room: [address] [place] [address] Type: ADM IN Attending Dr: Richard Zamora [...] 15:05/21/24 12:00 FiO2 40 05/21/24 15:00 Narrative: Physical [...] % (Auto) 79.2 Lymph % (Auto) 11.5 [place] % (Auto) 6.9 Eos % (Auto) 1.7 Baso % (Auto) 0.7 Nucleat RBC Rel Count 0.0 Neut # (Auto) 6.1 Lymph # (Auto) 0.[address] [place] # (Auto) 0.5 Eos # (Auto) 0.1 [...] MPV Neut % (Auto) Lymph % (Auto) [facility] % (Auto) Eos % (Auto) Baso % (Auto) Nucleat RBC Rel Count Neut # (Auto) Lymph # (Auto) [facility] # (Auto) Eos # (Auto) Baso # [...] indwelling Gomez catheter due to BPH. 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 Echo 05/11/24 [...] status has improved.Will defer that to primary plant pathologist. Documented By: John Nettles MD 05/16 1157 Signed By: <Electronically signed by John Nettles MD> 05/21/24 7521 [facility] Work Phone: 1([phone]) 373-331803-02-2025 Progress note Author Richard Zamora [facility] Note Date/Time May 21, 2024 2:48 pm [facility] [address] [place] [address] Hospitalist Progress Note Signed Patient: Leighton Arciniega MR#: [id number] : 1945 Acct:[id number] Age/Sex: 78 / M Adm Date: Loc: Room: [address] [place] [address] Type: ADM IN Attending Dr: Richard Zamora [...] ago he had his bladder tested at [facility] and a new Gomez catheter placed. [...] how clinical course progresses. CKD stage III -Safety Intern is 1.6 around baseline with good response to diuresis. -Continue to monitor Diabetes mellitus type 2, with hyperglycemia, due to corticosteroids. -Hemoglobin A1c is pending. -Will intensify dosing of both long-acting and short acting insulin and adjust this daily. Documented By: Richard Zamora DO 1543 Signed By: <Electronically signed by Richard Zamora DO> 05/21/24 1548 [facility] Work Phone: 1(881) [phone] [place] [address] Cardiology Progress Note Signed Patient: Leighton Arciniega MR#: [id number] : 1945 Acct:[id number] Age/Sex: 78 / M Adm Date: 5 Loc: Room: [address] [place] [address] Type: ADM IN Attending Dr: Richard Zamora [...] % (Auto) 79.2 Lymph % (Auto) 11.5 [place] % (Auto) 6.9 Eos % (Auto) 1.7 Baso % (Auto) 0.7 Nucleat RBC Rel Count 0.0 Neut # (Auto) 6.1 Lymph # (Auto) 0.[address] [place] # (Auto) 0.5 Eos # (Auto) 0.1 [...] MPV Neut % (Auto) Lymph % (Auto) [facility] % (Auto) Eos % (Auto) Baso % (Auto) Nucleat RBC Rel Count Neut # (Auto) Lymph # (Auto) [place] # (Auto) Eos # (Auto) Baso # [...] indwelling Gomez catheter due to BPH. 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 Echo 05/11/24 [...] status has improved.Will defer that to primary plant pathologist. Documented By: John Nettles MD 05/16 1157 Signed By: 05/21/24 1604 [facility]03-02-2025 Progress note Author Yue Lindsey [facility] Note Date/Time May 21, 2024 12:4 9pm [facility] [address] [place] [address] Pulmonology Progress Note Signed Patient: Leighton Arciniega MR#: [id number] : 1945 Acct:[id number] Age/Sex: 78 / M Adm Date: 5 Loc: Room: [address] [place] [address] Type: ADM IN Attending Dr: Richard Zamora [...] was told its mild Obstructive sleep apnea 3/ Patient had 4 hospitalization over last 2 [...] Yue Lindsey MD 05/21/24 1339 Signed By: <Electronically signed by Yue Lindsey MD> 05/21/[address] [facility] Work Phone: 1(782) 427-380303-02-2025 [place] [address] Hospitalist Progress Note Signed Patient: Leighton Arciniega MR#: [id number] : 1945 Acct:[id number] Age/Sex: 78 / M Adm Date: 5 Loc: Room: [address] [place] [address] Type: ADM IN Attending Dr: Richard Zamora [...] ago he had his bladder tested at [facility] and a new Foleycatheter placed. He [...] how clinical course progresses. CKD stage III -Safety Intern is 1.6 around baseline with good response to diuresis. -Continue to monitor Diabetes mellitus type 2, with hyperglycemia, due to corticosteroids. -Hemoglobin A1c is pending. -Will intensify dosing of both long-acting and short acting insulin and adjust this daily. Documented By: Richard Zamora DO 1543 Signed By: 05/21/24 1548 [facility]03-02-2025 [place] [address] Pulmonology Progress Note Signed Patient: Leighton Arciniega MR#: [id number] : 1945 Acct:[id number] Age/Sex: 78 / M Adm Date: 5 Loc: Room: [address] [place] [address] Type: ADM IN Attending Dr: Richard Zamora [...] was told its mild Obstructive sleep apnea 3/ Patient had 4 hospitalization over last 2 [...] MD 05/21/24 1339 Signed By: 05/21/24 1349 [facility]03-01-2025 Consult note Author John Nettles [facility] Note Date/Time May 20, 2024 2:05 pm [facility] [address] [place] [address] Cardiology Consult Note Signed Patient: Leighton Arciniega MR#: [id number] : 1945 Acct:[id number] Age/Sex: 78 / M Adm Date: 5 Loc: Room: [address] [place] [address] Type: ADM IN Attending Dr: Clau Edwards MD Copies to: MD John Love MD Safwan Khader, MD~ Cardiology HPI History of Present Illness Consult Date: 05/20/24 HPI: Mr. Arciniega is a 78-year-old male who was admitted to [facility] on 05/19/2023 with hypoxic respiratory failure due to pneumonia and CHF. Chest x-rayyesterday shows bilateral opacities due to pneumonia versus CHF. He was recently[facility] at [facility] for [facility]F exacerbation and underwent diuresis and eventual discharge to SNF. He was discharged on Bumex p.o. which he would have been getting at the SNF. He has known CHF with an EF of 20-25%. Plans were made for outpatient stress MPI and his follow-up appointment at [facility] Cardiology was scheduled for 06/15/2024. However due to worsening respiratory function he is nowreadmitted to the hospital. He was stabilized on BiPAP. Continues to have some coughing but is feeling better. Last [facility] was normal but was at [facility] in 2013. Review of Systems Review of Systems All other systems reviewed & are negative unless noted below or in HPI [facility] Medical History COPD (chronic obstructive pulmonary disease) [...] Lymph # (Auto) 0.8 L (1.00-4.8) x10E3/uL [facility] # (Auto) 0.6 (0.0-0.8) x10E3/uL Eos # [...] ml @ 25 mls/hr IV ONCE ONE Rx#:[id number] Oral 250 / 250 Output: Urine Amount [...] Gomez catheter due to BPH. [facility] in 2012 at [facility] - was normal per notes. Echo 05/11/24 [...] improved. Documented By: John Nettles MD 04/15 1256 Signed By: <Electronically signed by John Nettles MD> 05/20/[address] [facility] Work Phone: 1(490) 201-257903-01-2025 [place] [address] Cardiology Consult Note Signed Patient: Leighton Arciniega MR#: [id number] : 1945 Acct:[id number] Age/Sex: 78 / M Adm Date: 5 Loc: Room: 2L0563-7 Type: ADM IN Attending Dr: Clau Edwards MD Copies to: MD John Love MD Safwan Khader, MD~ Cardiology HPI History of Present Illness Consult Date: 05/20/24 HPI: Mr. Arciniega is a 78-year-old male who was admitted to [facility] on 05/19/2023 with hypoxic respiratory failure due to pneumonia and CHF. Chest x- rayyesterday shows bilateral opacities due to pneumonia versus CHF. He was recentlyadmitted at [facility] for CHF exacerbation and underwent diuresis and eventual discharge to SNF. He was discharged on Bumex p.o. which he would have been getting atthe SNF. He has known CHF with an EF of 20-25%. Plans were made for outpatient stress MPI and his follow-up appointment at [facility] Cardiology was scheduled for 06/15/2024. However due to worsening respiratory function he is nowreadmitted to the hospital. He was stabilized on BiPAP. Continues to have some coughing but is feeling better. Last [facility] was normal but was at [facility] in 2012. Review of Systems Review of Systems All other systems reviewed & are negative unless noted below or in HPI [facility] Medical History COPD (chronic obstructive pulmonary disease) [...] Lymph # (Auto) 0.8 L (1.00-4.8) x10E3/uL [facility] # (Auto) 0.6 (0.0-0.8) x10E3/uL Eos # [...] ml @ 25 mls/hr IV ONCE ONE Rx#:[id number] Oral 250 / 250 Output: Urine Amount [...] chronic indwelling Gomez catheter due to BPH. [facility] in 2012 at [facility] - was normal per notes. Echo 05/11/24 [...] improved. Documented By: John Nettles MD 04/15 9739 Signed By: 05/20/24 1505 [facility]03-01-2025 Consult note Author Yue Lindsey [facility] Note Date/Time May 20, 2024 11:4 8am [facility] [address] [place], [place] [id number] Pulmonology Consult Note Signed Patient: Leighton Arciniega MR#: [id number] : 1945 Acct:[id number] Age/Sex: 78 / M Adm Date: 5 Loc: Room: [address] [place] [address] Type: ADM IN Attending Dr: Clau Edwards [...] The patient had multiple hospital admissions to [facility] and [facility] over last 2 months. He was hospitalized twice in [place] and he was told he has pneumonia and has been requiring supplemental oxygen since then he was hospitalized in [facility] couple weeks ago and was found to have reduced ejection fraction 20% he was diuresed and discharged to detention. He was having worsening shortness of breath, cough and bloody sputum and reported fever. He was in [place] ED and transferred to [facility] ICU. Chest x-ray with bilateral patchy infiltrates worse on the right side. He is currently on Bumex drip he is on high flow oxygen 60% FiO2 and alternating with BiPAP Review of Systems Constitutional Constitutional: Reports as per HPI [facility] Medical History (Updated 05/20/24 @ 12:39 by [...] <Electronically signed by Yue Lindsey MD> 05/20/[address] [facility] Work Phone: 1(878) 700-832403-01-2025 [facility] [place] [address] [place] [address] CT Scan Report Signed Patient: Leighton Arciniega MR#: [id number] : 1945 Acct:[id number] Age/Sex: 78 / M ADM Date: 5 Loc: Room: [address] [place] [address] Type: ADM IN Attending Dr: Clau Edwards [...] Edwards Jr., D.OAnisa05/20/2024 1:14 PM Dictation Location: [id number] Transcribed By: [place] 05/20/24 1314 Dictated By: Swapnil Edwards Jr, 05/20/24 1312 Signed By: 05/20/24 1314 [facility]03-01-2025 [place] [id number] Pulmonology Consult Note Signed Patient: Leighton Arciniega MR#: [id number] : 1945 Acct:[id number] Age/Sex: 78 / M Adm Date: 5 Loc: Room: [address] [place] [address] Type: ADM IN Attending Dr: Clau Edwards [...] The patient had multiple hospital admissions to [facility] and [facility] over last 2 months. He was hospitalized twice in [place] and he was told he has pneumonia and has been requiring supplemental oxygen since then he was hospitalized in [facility] couple weeks ago and was found to have reduced ejection fraction 20% he was diuresed and discharged to detention. He was having worsening shortness of breath, cough and bloody sputum and reported fever. He was in [place] ED and transferred to [facility]'s ICU. Chest x-ray with bilateral patchy infiltrates worse on the right side. He is currently on Bumex drip he is on high flow oxygen 60% FiO2 and alternating with BiPAP Review of Systems Constitutional Constitutional: Reports as per HPI [facility] Medical History (Updated 05/20/24 @ 12:39 by [...] MD 05/20/24 1229 Signed By: 05/20/24 1248 [facility]03-01-2025 Progress note Author Clau Edwards [facility] Note Date/Time May 20, 2024 8:51 am [facility] [address] [place] [address] Hospitalist Progress Note Signed Patient: Leighton Arciniega MR#: [id number] : 1945 Acct:[id number] Age/Sex: 78 / M Adm Date: 5 Loc: Room: [address] [place] [address] Type: ADM IN Attending Dr: Clau Edwards MD Copies to: ~ Date of Service: 05/20/2024 Subjective Subjective Narrative: HPI: Mr Arciniega is a 78-year-old male who was admitted to [facility] the earlymorning of May 19 with a [...] 20s and low 30s. His settings were bulxopqsi15/8 with FiO2 of 65%. His tidal volumes were roughly 750 mL. This does correlate with an ABG performed at [facility] which shows pH of 7.52, pCO2 of [...] 5 Mg Capsule PO 05/20/25 21:59 HS [facility] Valsartan 40 mg 05/20/24 09:45 Valsartan 40 [...] profile Monitor daily CBC CKD stage III Safety Intern is 1.6 around baseline with good response to diuresis. Continue to monitor Documented By: Clau Edwards MD 05/20/24 0942 Signed By: <Electronically signed by Clau Edwards MD> 05/20/24 0944 [facility] Work Phone: 1(262) 486-180403-01-2025 [place] [address] Hospitalist Progress Note Signed Patient: Leighton Arciniega MR#: [id number] : 1945 Acct:[id number] Age/Sex: 78 / M Adm Date: 5 Loc: Room: [address] [place] [address] Type: ADM IN Attending Dr: Clau Edwards MD Copies to: ~ Date of Service: 05/20/2024 Subjective Subjective Narrative: HPI: Mr Arciniega is a 78-year-old male who was admitted to [facility] the early with a chief complaint of [...] 20s and low 30s. His settings were uvddznqzu16/8 with FiO2 of 65%. His tidal volumes were roughly 750 mL. This does correlate with an ABG performed at [facility] which shows pH of 7.52, pCO2 of [...] 81 mg 05/21/24 09:00 Aspirin 81 Mg Tablet.Dr PO 05/21/25 08:59 Delacruz@0900 BRYAN Carvedilol 6.25 [...] profile Monitor daily CBC CKD stage III Safety Intern is 1.6 around baseline with good response to diuresis. Continue to monitor Documented By: Clau Edwards MD 05/20/24 0942 Signed By: 05/20/24 0951 [facility]03-01-2025 History and physical note Author Don Patel [facility] Note Date/Time May 20, 2024 3:07 am [facility] [address] [place] [address] Hospitalist H&P Signed Patient: Leighton Arciniega MR#: [id number] : 1945 Acct:[id number] Age/Sex: 78 / M Adm Date: 5 Loc: Room: 5X3571-6 Type: ADM IN Attending Dr: Don Patel DO Copies to: MD Don Love, DO~ HPI DATE OF EXAMINATION: 05/20/24 CHIEF COMPLAINT: shortness of breath HISTORY OF PRESENT ILLNESS: Mr Arciniega is a 78-year-old male who was admitted to [facility] the earlymorning of May 19 with a [...] 20s and low 30s. His settings were tsnyjkbws99/8 with FiO2 of 65%. His tidal volumes were roughly 750 mL. This does correlate with an ABG performed at [facility] which shows pH of 7.52, pCO2 of [...] negative unless noted below or in HPI [facility] Medical History (Updated 05/20/24 @ 04:06 by [...] infusion. He was on 0.5 mg/h at [place], will have him on 1 mg/h here. [...] By: Don Patel DO 05/20/245 Signed By: <Electronically signed by Don Patel DO> 05/20/24 0402 [facility] Work Phone: 1(595) 176-778203-01-2025 Evaluation note* Diagnosis Onset Date Resolution Status Admit Date Afib acute May 20 2:38am Chronic indwelling Gomez catheter acute May 20, 2024 2:38am COPD (chronic obstructive pulmonary disease) acute May 20 2:38am Diabetes acute May 20 2:38am Hypomagnesemia acute May 20, 2024 2:38am Interstitial lung disease acute May 20, 2024 2:38am Iron deficiency anemia acute [facility] 2024 2:38am Obstructive sleep apnea acute [facility] 2024 2:38am Acute HFrEF (heart failure w ith reduced ejection fraction) resolved May 20, 2024 2:38am Chronic kidney disease resolved [facility] 2024 2:38am Pacemaker resolved May 20 2:38am Sick sinus syndrome resolved May 20, 2024 2:38am Acute on chronic hypoxic respiratory failure deleted May 20 2:38am Anemia deleted May 20 2:38am Hemoptysis deleted May 20 2:38am Pulmonary infiltrates deleted [facility] 2024 2:38am COPD (chronic obstructive pulmonary disease) acute July 06, 025 12:09pm Interstitial lung disease acute July 06, 2024 12:09pm Obstructive sleep apnea acute A pril 2024 12:09pm [facility] Work Phone: 1(486) 525-342203-01-2025 [place] [address] Hospitalist H&P Signed Patient: Leighton Arciniega MR#: [id number] : 1945 Acct:[id number] Age/Sex: 78 / M Adm Date: 5 Loc: Room: [address] [place] [address] Type: ADM IN Attending Dr: Don Patel DO Copies to: MD Don Love, DO~ HPI DATE OF EXAMINATION: 05/20/24 CHIEF COMPLAINT: shortness of breath HISTORY OF PRESENT ILLNESS: Mr Arciniega is a 78-year-old male who was admitted to [facility] the early with a chief complaint of [...] 20s and low 30s. His settings were xwvyajryd87/8 with FiO2 of 65%. His tidal volumes were roughly 750 mL. This does correlate with an ABG performed at [facility] which shows pH of 7.52, pCO2 of [...] negative unless noted below or in HPI [facility] Medical History (Updated 05/20/24 @ 04:06 by [...] infusion. He was on 0.5 mg/h at [place], will have him on 1 mg/h here. [...] (# of days): 3 Documented By: Don Patel, 05/20/24 0315 Signed By: 05/20/24 0407 [facility]02-27-2025 NotePatient Education Urology Prostatic Urethral Lift Prostatic [...] including vitamins, herbs, eye drops, creams, and oxuf-wny-umrezlv medicines. ??? Any problems you or family [...] tells you to take them. ??? Taking vdlp-qvk-fcwmiog medicines, vitamins, herbs, and supplements. Surgery safety [...] procedure to relieve symptoms (more content not included)...[facility]02-22-2025 Progress note Author John Nettles [facility] Note Date/Time May 13, 2024 12:49pm [facility] [address] [place] [address] Cardiology Progress Note Signed Patient: Leighton Arciniega MR#: [id number] : 1945 Acct:[id number] Age/Sex: 78 / M Adm Date: 5 Loc: 4 Room: [address] [place] [address] Type: ADM IN Attending Dr: Alexa Corona [...] few weeks has been admitted twice to [place] and was treated for pneumonia. The patient [...] discharge patient over the weekend to the [facility] for recovery. His kidney function is unchanged [...] % (Auto) 68.7 Lymph % (Auto) 17.8 [facility] % (Auto) 7.9 Eos % (Auto) 5.3 Baso % (Auto) 0.3 Nucleat RBC Rel Count 0.0 Neut # (Auto) 4.3 Lymph # (Auto) 1.1 [facility] # (Auto) 0.5 Eos # (Auto) 0.3 [...] MPV Neut % (Auto) Lymph % (Auto) [facility] % (Auto) Eos % (Auto) Baso % (Auto) Nucleat RBC Rel Count Neut # (Auto) Lymph # (Auto) [facility] # (Auto) Eos # (Auto) Baso # [...] contrast-induced nephropathy, once stable Lexiscan MPI. Last LHC was normal but was at [facility] in 2012. Plan for outpatient Lexiscan MPI by primary plant pathologist. 3. Continue anticoagulation for now 4. Will see as needed. Please call with any questions. He will f/u with [facility] cardiology. Documented By: John Nettles MD 04/23 05/16 123 Signed By: <Electronically signed by John Nettles MD> 05/13/[address] [facility] Work Phone: 1(691) 312-742902-22-2025 [place] [id number] Cardiology Progress Note Signed Patient: Leighton Arciniega MR#: [id number] : 1945 Acct:[id number] Age/Sex: 78 / M Adm Date: 5 Loc: 4P Room: [address] [place] [address] Type: ADM IN Attending Dr: Alexa Corona [...] few weeks has been admitted twice to [place] and was treated for pneumonia. The patient [...] to discharge patient overthe weekend to the [facility] for recovery. His kidney function is unchanged [...] % (Auto) 68.7 Lymph % (Auto) 17.8 [facility] % (Auto) 7.9 Eos % (Auto) 5.3 Baso % (Auto) 0.3 Nucleat RBC Rel Count 0.0 Neut # (Auto) 4.3 Lymph # (Auto) 1.1 [facility] # (Auto) 0.5 Eos # (Auto) 0.3 [...] MPV Neut % (Auto) Lymph % (Auto) [facility] % (Auto) Eos % (Auto) Baso % (Auto) Nucleat RBC Rel Count Neut # (Auto) Lymph # (Auto) [facility] # (Auto) Eos # (Auto) Baso # [...] contrast-induced nephropathy, once stable Lexiscan MPI. Last C was normal butwas at [facility] in 2012. Plan for outpatient Lexiscan MPI by primary plant pathologist. 3. Continue anticoagulation for now 4. Will see as needed. Please call with any questions. He will f/u with [facility] cardiology. Documented By: John Nettles MD 04/23 05/16 1234 Signed By: 05/13/24 1249 [facility]02-21-2025 Progress note Author Rupert Rey [facility] Note Date/Time May 12, 2024 5:40pm [facility] [address] [place] [address] Cardiology Progress Note Signed Patient: Leighton Arciniega MR#: [id number] : 1945 Acct:[id number] Age/Sex: 78 / M Adm Date: 5 Loc: Room: [address] [place] [address] Type: ADM IN Attending Dr: Alexa Corona [...] few weeks has been admitted twice to [place] and was treated for pneumonia. The patient [...] discharge patient over the weekend to the [facility] for recovery. His kidney function is unchanged [...] L Nasal Cannula 2 05/12/24 08:00 05/12/24 16:05/12/24 16:00 05/12/24 16:00 05/12/24 16:00 05/12/24 16:00 [...] % (Auto) 71.7 Lymph % (Auto) 16.4 [facility] % (Auto) 6.8 Eos % (Auto) 4.5 Baso % (Auto) 0.6 Nucleat RBC Rel Count 0.1 Neut # (Auto) 4.3 Lymph # (Auto) 1.0 [place] # (Auto) 0.4 Eos # (Auto) 0.3 [...] MPV Neut % (Auto) Lymph % (Auto) [facility] % (Auto) Eos % (Auto) Baso % (Auto) Nucleat RBC Rel Count Neut # (Auto) Lymph # (Auto) [facility] # (Auto) Eos # (Auto) Baso # (Auto) PHA Creatinine Clear Sodium Potassium Chloride Carbon Dioxide Anion Gap BUN Creatinine Est GFR (CKD-EPI) Glucose POC Glucose 63 91 214 POC Glucose Comment Calcium 05/12/24 16:26 Corrected WBC Uncorrected WBC Count RBC Hgb Hct MCV MCH MCHC RDW Plt Count MPV Neut % (Auto) Lymph % (Auto) [facility] % (Auto) Eos % (Auto) Baso % (Auto) Nucleat RBC Rel Count Neut # (Auto) Lymph # (Auto) [facility] # (Auto) Eos # (Auto) Baso # [...] as tolerated Documented By: Rupert Rey MD, [facility] 5 [id number] Signed By: <Electronically signed by MD HARSHIL Rey> 05/12/[address] [facility] Work Phone: 1(268) 632-747002-21-2025 [place] [address] Cardiology Progress Note Signed Patient: Leighton Arciniega MR#: [id number] : 1945 Acct:[id number] Age/Sex: 78 / M Adm Date: 5 Loc: 4 Room: 5O0979-0 Type: ADM IN Attending Dr: Alexa Corona [...] few weeks has been admitted twice to [place] and was treated for pneumonia. The patient [...] to discharge patient overthe weekend to the [facility] for recovery. His kidney function is unchanged [...] % (Auto) 71.7 Lymph % (Auto) 16.4 [facility] % (Auto) 6.8 Eos % (Auto) 4.5 Baso % (Auto) 0.6 Nucleat RBC Rel Count 0.1 Neut # (Auto) 4.3 Lymph # (Auto) 1.0 [facility] # (Auto) 0.4 Eos # (Auto) 0.3 [...] MPV Neut % (Auto) Lymph % (Auto) [facility] % (Auto) Eos % (Auto) Baso % (Auto) Nucleat RBC Rel Count Neut # (Auto) Lymph # (Auto) [facility] # (Auto) Eos # (Auto) Baso # (Auto) PHA Creatinine Clear Sodium Potassium Chloride Carbon Dioxide Anion Gap BUN Creatinine Est GFR (CKD-EPI) Glucose POC Glucose 63 91 214 POC Glucose Comment Calcium 05/12/24 16:26 Corrected WBC Uncorrected WBC Count RBC Hgb Hct MCV MCH MCHC RDW Plt Count MPV Neut % (Auto) Lymph % (Auto) [facility] % (Auto) Eos % (Auto) Baso % (Auto) Nucleat RBC Rel Count Neut # (Auto) Lymph # (Auto) [facility] # (Auto) Eos # (Auto) Baso # [...] as tolerated Documented By: Rupert Rey MD, [facility] 5 [id number] Signed By: 05/12/24 1740 [facility]02-21-2025 Progress note Author Alexa Corona [facility] Note Date/Time May 12, 2024 2:50pm [facility] [address] [place] [address] Hospitalist Progress Note Signed Patient: Leighton Arciniega MR#: [id number] : 1945 Acct:[id number] Age/Sex: 78 / M Adm Date: 5 Loc: Room: [address] [place] [address] Type: ADM IN Attending Dr: Alexa Corona [...] Laboratory work up and Imaging studies reviewed 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, improving with diuretic therapy, currently downgraded to 6 L nasal cannula, now to 4, I do suspect due to acute systolic congestive heart failure with ejection fraction 20% as per reports from [facility], echocardiogram pending For now I [...] urinary retention during last admission at the [place], he does have appointment with urologist, will keep it in Documented By: Alexa Corona MD 05/12/24 1441 Signed By: <Electronically signed by Alexa Corona MD> 05/12/[address] 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, improving with diuretic therapy, currently downgraded to 6 L nasal cannula, now to 4, I do suspect due to acute systolic congestive heart failure with ejection fraction 20% as per reports from [facility], e chocardiogram pending For now [...] urinary retention during last admission at the [place], he does haveappointment with urologist, will keep it in Documented By: Alexa Corona MD 05/12/24 1449 Signed By: 05/12/24 1450 [facility]02-20-2025 Progress note Author Alexa Corona [facility] Note Date/Time May 11, 2024 12:27pm [facility] [address] [place] [address] Hospitalist Progress Note Signed Patient: Leighton Arciniega MR#: [id number] : 1945 Acct:[id number] Age/Sex: 78 / M Adm Date: 5 Loc: Room: [address] [place] [address] Type: ADM IN Attending Dr: Alexa Corona [...] Laboratory work up and Imaging studies reviewed pressure welder - reviewed Exam Physical Exam Vital Signs: [...] Mg/4 Ml Vial IV-PUSH 05/11/25 15:59 BID@0800,1600 [facility] Carvedilol 6.25 mg 05/10/24 09:00 05/11/24 08:32 [...] hypoxic respiratory failure requiring BiPAP administration at [facility], improving with diuretic therapy, currently downgraded to 6 L nasal cannula, now to 4, I do suspect due to acute systolic congestive heart failure with ejection fraction 20% as per reports from [facility], echocardiogram pending For now I [...] signed by Alexa Corona MD> 05/11/24 1227 [facility] Work Phone: 1(465) 881-734502-20-2025 Progress note Author Rupert Rey [facility] Note Date/Time May 11, 2024 12:22pm [facility] [address] [place] [address] Cardiology Progress Note Signed Patient: Leighton Arciniega MR#: [id number] : 1945 Acct:[id number] Age/Sex: 78 / M Adm Date: 5 Loc: Room: [address] [place] [address] Type: ADM IN Attending Dr: Alexa Corona [...] few weeks has been admitted twice to [place] and was treated for pneumonia. The patient [...] MPV Neut % (Auto) Lymph % (Auto) [facility] % (Auto) Eos % (Auto) Baso % (Auto) Nucleat RBC Rel Count Neut # (Auto) Lymph # (Auto) [facility] # (Auto) Eos # (Auto) Baso # [...] % (Auto) 78.1 Lymph % (Auto) 11.7 [facility] % (Auto) 6.8 Eos % (Auto) 3.3 Baso % (Auto) 0.1 Nucleat RBC Rel Count 0.1 Neut # (Auto) 5.2 Lymph # (Auto) 0.[address] [place] # (Auto) 0.5 Eos # (Auto) 0.2 [...] MPV Neut % (Auto) Lymph % (Auto) [facility] % (Auto) Eos % (Auto) Baso % (Auto) Nucleat RBC Rel Count Neut # (Auto) Lymph # (Auto) [facility] # (Auto) Eos # (Auto) Baso # [...] failure therapy Documented By: Rupert Rey MD, [facility] 5 1217 Signed By: <Electronically signed by [facility] Rupert Rey> 05/11/[address] 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, improving with diuretic therapy, currently downgraded to 6 L nasal cannula, now to 4, I do suspect due to acute systolic congestive heart failure with ejection fraction 20% as per reports from [facility], e chocardiogram pending For now [...] MD 05/11/24 1224 Signed By: 05/11/24 1227 [facility]-20-2025 [place] [address] Cardiology Progress Note Signed Patient: Leighton Arciniega MR#: [id number] : 1945 Acct:[id number] Age/Sex: 78 / M Adm Date: 5 Loc: 4P Room: [address] [place] [address] Type: ADM IN Attending Dr: Alexa Corona [...] few weeks has been admitted twice to [place] and was treated for pneumonia. The patient [...] MPV Neut % (Auto) Lymph % (Auto) [facility] % (Auto) Eos % (Auto) Baso % (Auto) Nucleat RBC Rel Count Neut # (Auto) Lymph # (Auto) [facility] # (Auto) Eos # (Auto) Baso # [...] % (Auto) 78.1 Lymph % (Auto) 11.7 [facility] % (Auto) 6.8 Eos % (Auto) 3.3 Baso % (Auto) 0.1 Nucleat RBC Rel Count 0.1 Neut # (Auto) 5.2 Lymph # (Auto) 0.[address] [place] # (Auto) 0.5 Eos # (Auto) 0.2 [...] MPV Neut % (Auto) Lymph % (Auto) [facility] % (Auto) Eos % (Auto) Baso % (Auto) Nucleat RBC Rel Count Neut # (Auto) Lymph # (Auto) [facility] # (Auto) Eos # (Auto) Baso # [...] failure therapy Documented By: Rupert Rey MD, [facility] 5 1217 Signed By: 05/11/24 [facility]2 [facility] Inc02-19-2025 Consult note Author Osvaldo Dickinson [facility] Note Date/Time May 10, 2024 6:30pm [facility] [address] [place] [address] Cardiology Consult Note Signed Patient: Leighton Arciniega MR#: [id number] : 1945 Acct:[id number] Age/Sex: 78 / M Adm Date: 5 Loc: Room: [address] [place] [address] Type: ADM IN Attending Dr: Alexa Corona MD Copies to: Lori M Hoy, MD Alexa Alvarado MD~ Cardiology HPI History of Present Illness [...] few weeks has been admitted twice to [facility] and was treated for pneumonia. The patient [...] denies chest pain. He described mild arthritis [facility] Medical History COPD (chronic obstructive pulmonary disease) [...] Lymph # (Auto) 0.6 L (1.00-4.8) x10E3/uL [place] # (Auto) 0.3 (0.0-0.8) x10E3/uL Eos # [...] heart failure. Chart suggestto recent echocardiogram at [facility] initially showed ejection fraction around 55% while [...] <Electronically signed by MD Osvaldo Dickinson> 05/10/[address] [facility] Work Phone: 1(411) 766-494502-19-2025 Consult [place] [phone] Cardiology Consult Note Signed Patient: Leighton Arciniega MR#: [id number] : 1945 Acct:[id number] Age/Sex: 78 / M Adm Date: 5 Loc: Room: [address] [place] [address] Type: ADM IN Attending Dr: Alexa Corona [...] few weeks has been admitted twice to [facility] and was treated for pneumonia. The patient [...] denies chest pain. He described mild arthritis [facility] Medical History COPD (chronic obstructive pulmonary disease) [...] Lymph # (Auto) 0.6 L (1.00-4.8) x10E3/uL [place] # (Auto) 0.3 (0.0-0.8) x10E3/uL Eos # (Auto) 0.0 (0.0-0.45) x10E3/uL Baso # (Auto) 0.1 (0.0-0.2) x10E3/uL Comprehensive Metabolic Panel 05/10/24 Range/Units 04:46 Sodium 136 (136-145) mmol/L Potassium 4.2 (3.5-5.1) mmol/L Chloride 101 (98-107) mmol/L Carbon Dioxide 26.6 (21.0-31.0) mmol/L BUN 85 H (7-25) mg/dL Creatinine 2.26 H (0.70-1.30) mg/dL Glucose 131 H (70-100) mg/dL Calcium 8.9 (8.6-10.3) mg/dL Intake and Output 02/19/25 02/19/25 02/19/25 07:59 15:59 23:59 Intake Total 50 / [...] heart failure. Chart suggestto recent echocardiogram at [facility] initially showed ejection fraction around 55% while [...] Dickinson MD 05/10/241816 Signed By: 05/10/24 1830 [facility]02-19-2025 Progress note Author Alexa Corona [facility] Note Date/Time May 10, 2024 12:51pm [facility] [address] [place] [address] Hospitalist Progress Note Signed Patient: Leighton Arciniega MR#: [id number] : 1945 Acct:[id number] Age/Sex: 78 / M Adm Date: 5 Loc: 4 Room: [address] [place] [address] Type: ADM IN Attending Dr: Alexa Corona [...] Laboratory work up and Imaging studies reviewed 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, improving with diuretic therapy, currently downgraded to 6 L nasal cannula, now to 4, I do suspect due to acute systolic congestive heart failure with ejection fraction 20% as per reports from [facility] For now I will continue [...] signed by Alexa Corona MD> 05/10/[address] 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, improving with diuretic therapy, currently downgraded to 6 L nasal cannula, now to 4, I do suspect due to acute systolic congestive heart failure with ejection fraction 20% as per reports from [facility] For now I will continue [...] MD 05/10/24 1248 Signed By: 05/10/24 1251 [facility]02-18-2025 History and physical note Author Alexa Corona [facility] Note Date/Time May 09, 2024 9:08pm [facility] [address] [place] [address] Hospitalist H&P Signed Patient: Leighton Arciniega MR#: [id number] : 1945 Acct:[id number] Age/Sex: 78 / M Adm Date: 5 Loc: Room: [address] [place] [address] Type: ADM IN Attending Dr: Devan Drake MD Copies to: MD Devan Love MD Ruta Semaskiene, MD~ HPI DATE OF EXAMINATION: 05/09/24 HISTORY OF PRESENT ILLNESS: 78 Years old male transferred from [facility] with shortness of breath. Patient was hospitalized [...] are negative from what is mentioned to SET DESIGNER General -patient is awake alert oriented ?3, [...] Previous records in the computer system reviewed [facility] Medical History (Updated 05/09/24 @ 21:08 by [...] with ejection fraction 20% as perreports from [facility] For now I will continue with Bumex drip, strict input and output, recheck kidneyfunction in a.m., today labs reviewed from [facility] Consult cardiology due to systolic heart failure [...] <Electronically signed by Alexa Corona MD> 05/09/242107 [facility] Work Phone: 1(370) 323-117902-18-2025 Evaluation note* Diagnosis Onset Date Resolution Status Admit Date CHF (congestive heart failure) acute May 09 7:47pm Chronic kidney disease acute 2024 7:47pm Pacemaker acute May 09, 2024 7:47pm Sick sinus syndrome acute u 2024 7:47pm [facility] Work Phone: 1(204) 335-541402-18-2025 Evaluation note* Diagnosis Onset Date Resolution Status Admit Date CHF (congestive heart failure) resol ellen May 09, 2024 7:47pm Chronic kidney disease resolved 2024 7:47pm Pacemaker resolved May 09, 2024 [...] 20, 2024 2:38am Iron deficiency anemia acute Ma rch 2024 2:38am Obstructive sleep apnea acute M arch 2024 2:38am Pulmonary infiltrates acute Mar ch 2024 2:38am Chronic kidney disease resolved [facility] 2024 2:38am Pacemaker resolved May 20 2:38am Sick sinus syndrome resolved May 20, 2024 2:38am [facility] Work Phone: 1(456) 103-546302-18-2025 Evaluation note* Diagnosis Onset Date Resolution Status [...] 20, 2024 2:38am Iron deficiency anemia acute [facility] 2024 2:38am Obstructive sleep apnea acute [facility] 2024 2:38am Acute HFrEF (heart failure with reduced ejection fraction) resolved May 20, 2024 2:38am Chronic kidney disease resolved [facility] 2024 2:38am Pacemaker resolved May 20 2:38am Sick sinus syndrome resolved May 20, 2024 2:38am Acute on chronic hypoxic respiratory failure deleted May 20 2:38am Anemia deleted May 20 2:38am Hemoptysis deleted May 20 2:38am Pulmonary infiltrates deleted [facility] 2024 2:38am [facility] Work Phone: 1(591) 321-200102-18-2025 [place] [address] Hospitalist H&P Signed Patient: Leighton Arciniega MR#: [id number] : 1945 Acct:[id number] Age/Sex: 78 / M Adm Date: 5 Loc: 4 Room: [address] [place] [address] Type: ADM IN Attending Dr: Devan Drake MD Copies to: MD Devan Love MD Ruta Semaskiene, MD~ HPI DATE OF EXAMINATION: 05/09/24 HISTORY OF PRESENT ILLNESS: 78 Years old male transferred from [facility] with shortness of breath. Patient was hospitalized [...] are negative from what is mentioned to SET DESIGNER General -patient is awake alert oriented ?3, [...] Previous records in the computer system reviewed [facility] Medical History (Updated 05/09/24 @ 21:08 by [...] with ejection fraction 20% as perreports from [facility] For now I will continue with Bumex drip, strict input and output, recheck kidneyfunction in a.m., today labs reviewed from [facility] Consult cardiology due to systolic heart failure [...] Alexa Corona MD 05/09/242051 Signed By: 05/09/242107 [facility]02-05-2025 NotePatient Education Urology Indwelling Urinary Catheter Insertion [...] provider. Document Revised: 11/05/2021 Document Reviewed: 11/05/2021 [employer] Patient Education ? 2023 [employer] 04-12-2024 NotePatient Education Urology Benign Prostatic Hyperplasia [...] Follow these instructions at home: ??? Take wtpv-vuz-yozajfr and prescription medicines only as told by [...] symptoms do not get (more content not included)...[facility]12-12-2024 NotePatient Education Urology Acute Urinary Retention, Male [...] these instructions at home: Medicines ??? Take nvzs-wac-rcmrcfj and prescription medicines only as told by [...] provider. Document Revised: 11/27/2020 Document Reviewed: 11/27/2020 [employer] Patient Education ? 2023 [employer].[facility] 03-01-2024 History of Present illness Narrative* Osvaldo Dickinson MD - 03/01/2024 11:00 AM EST Subjective Leighton Arciniega is a 78 y.o. [...] to retrieve his recent lab work from [facility] 5. I will see him back in [...] exam, discussion and plan. documented in this [facility] Work Phone: 1(915) 343-511112-11-2024 Instructions* Patient Instructions* Betzaida Denney LPN - [...] Provided instructions on exercise. documented in this [facility] Work Phone: 1(655) 341-176611-25-2024 NotePatient Education Rezum Post-Procedure Instructions General Recommendations [...] to the c (more content not included)... [facility]11-11-2024 NotePatient Education Urology Acute Urinary Retention, Male [...] these instructions at home: Medicines ??? Take fvhx-pwo-wntmsof and prescription medicines only as told by [...] provider. Document Revised: 11/27/2020 Document Reviewed: 11/27/2020 [employer] Patient Education ? 2023 [employer] Benign Prostatic Hyperplasia Benign prostatic hyperplasia (BPH) is an enlarged prostate gland that is caused by the normal agingproc (more content not included)...[facility]10-28-2024 History of Present illness Narrative* Blanca Alonso [...] given intertriginous involvement, topical steroids contraindicated for chcf use in this area and he has [...] Next Visit: 1 year documented in this enco[id number] NoteProgress Note-Physician Patient: LEIGHTON ARCINIEGA Age: 78 [...] day(s), # 6 tab(s), Refills(s) 0, Pharmacy: [facility] #[id number], 177, cm, 12/27/23 11:02:00 EDT, Height/Length Dosing, 104, kg, 12/27/23 11:02:00 EDT, Weight Dosing Davis 325 mg-5 mg oral tablet: 1 tab(s), Oral, q6hr for pain, 4 tab(s), Refill(s) 0, Take 1 tablet an hour before procedure, post procedure prn, [facility] #[id number], 177, cm, 12/27/23 11:02:00 EDT, Height/Length Dosing, 104, kg, 12/27/23 11:02:00 EDT, Weight Dosing sildenafil 100 mg Tab: 100 mg = 1 tab(s), Oral, As Directed, PRN for erectile dysfunction, Take onetab 1 hour prior to sexual activity., # 30 tab(s), Refills(s) 3, Pharmacy: [facility] #[id number], 177.8, cm, 06/16/23 10:18:00 EDT, Height/Length Dosing, 104.8, kg, 06/16/23 10:18:... terazosin 10 mg Cap: 10 mg = 1 cap(s), Oral, Once a day (at bedtime), # 90 cap(s), Refills(s) 3, Pharmacy: [facility], 177, cm, 12/27/23 11:02:00 EDT, Height/Length Dosing, 104, kg, 12/27/23 11:02:00 EDT, Weight Dosing traMADOL 50 mg Tab: 50 mg = 1 tab(s), Oral, q6hr, Take as needed for pain., # 6 tab(s), Refills(s) 0, Pharmacy: [facility] #[id number], 177.8, cm, 11/12/23 15:35:00 EDT, Height/Length Dosing, [...] Plan: Diagnosis: Prostate hyperplasia with urinary obstruction (OXO82-NA N40.1, Discharge, Medical), Feeling of incomplete bladder emptying (VBY26-EM R39.14, Working, Medical), Anticoagulated (ISM60-IL Z79.01, Discharge, Medical). 78 yo male here [...] and Valium prior to procedure. Will need wagon driver. The procedural risks, benefits, details, and treatment alternatives have been discussed with the patient. These include bleeding, infection, continued problems urinating, increased frequency with urgency during the healing process, painful urination, need for indwelling cathete (more content not included)... [facility]:Result Comment: Electronically Signed By: Josep [...] if you have a fever over 100 degrees.[facility] 12-14-2023 History of Present illness Narrative* Dank Robert, DO - 12/14/2023 1:30 PM EDT Images [...] Actinic keratosis COPD (chronic obstructive pulmonary disease) ([facility]/HCC) Coronary heart disease ([facility]/HCC) Diabetes mellitus, type 2 ([facility]/HCC) HTN (hypertension) ([facility]) Hx of psoriasis Kidney disease VA (myocardial infarction) ([facility]/HCC) VIRGILIO (obstructive sleep apnea) Pacemaker Squamous cell [...] was counselled on the risk of stroke, VA, and sudden with VIRGILIO, along with the [...] instructions Return to clinic: documented in this enco[id number] NotePatient Education Urology Benign Prostatic Hyperplasia Benign [...] Follow these instructions at home: ? Take nxgz-vhj-zhbvvnu and prescription medicines only as told by [...] You develop side effec (more content not included)...[facility]07-25-2024 NoteED Patient Education Note Orthopedics Acute Knee [...] under your knee. General instructions ? Take jlio-jav-tfvmpnc and prescription medicines only as told by [...] provider. Document Revised: 08/21/2020 Document Reviewed: 08/21/2020 [employer] Patient Education ? 2022 [employer] 08-25-2023 History of Present illness Narrative* Varghese [...] exam, discussion and plan. [facility] Work Phone: 1([phone]) 994-567006-05-2024 Instructions* Patient Instructions* Jo Ann Ferrer CMA [...] time of your visit. documented [facility] Work Phone: 1(864) 568-498111-22-2023 History of Present illness Narrative* Varghese Caal [...] on recent pacemaker checks. [facility] Work Phone: 1([phone]) 886-443511-22-2023 Instructions* Patient Instructions* Alize James LPN - [...] follow up per routine documented in [facility] Work Phone: 1(365) 355-392602-23-2023 NotePROCEDURE: XR KNEE LT 4V or > [...] Electronically authenticated by: JOE DU Date: 2022-05-14 18:40[place] [address] Discharge Summary Signed Patient: Leighton Arciniega MR#: [id number] : 1945 Acct:[id number] Age/Sex: 78 / M Adm Date: 5 Loc: Room: [address] [place] [address]: Richard Zamora DO Copies to: MD Richard Love DO Mourhaf A Traboulssi, MD~ Providers Date of Discharge: 05/27/24 Discharging Provider: Richard Zamora Primary Care Provider: Lori Nugent Consults: 05/20/24 03:03 Consult to Cardiology Routine Comment: Consulting Provider: [facility], [facility] Reason For Exam: CHF on Bipap Has Provider Been Notified: Yes Date of Notification: 05/20/24 Time of Notification: 06:00 05/20/24 03:08 Consult to Pulmonology Routine Comment: Consulting Provider: [facility] Reason For Exam: [...] few visits to different hospitals, primarily outside [facility], with shortness of breath. For this particular hospital stay he presented to [facility] on May 19 with cough, shortness of [...] to BiPAP. So on arrival here to [facility] he was put in the ICU. He [...] 2 or 3 more days. The pulmonology mining consultant became concerned about secondary problem in [...] have that done by the patient's regular plant pathologist, Dr. Dickinson, in the office. At the end of the hospital stay the patient was excepted to a [facility] facility, but after getting ready to take [...] 49 Discharge Plan Discharge Plan Patient Disposition: Halfway Facility Activity: No Activity Restriction Diet: Diabetic [...] Patient Ordered By: Richard Zamora Follow Up: [facility] Sched[facility] [Outside] (Please call to pre-register for your outpatient PFT and CXR. ) Osvaldo Dickinson MD [Active Staff] - 06/15/24 2:30 pm Darshan Willams MD [Active Staff] - 07/06/24 1:30 pm (Post hospital follow-up appointment. The patient should have repeat two-view chest x-ray as well as pulmonary function tests prior to hisoffice follow-up visit.) Lori Nugent MD [Primary Care Provider] - (Please arrange a follow-up appointment once dischargedfrom SNF. ) Continuity of Care Document Health Concerns: A [facility] screening has identified you as FRAIL or [...] Stay Strong:Four Ways to Beat the Frailty [email or web address]-qkt-vixrmaufau/sta y-ejywnh-zljm-djor-zy-qyjf-ygl-iaeaclv-hhay Exam Physical Exam Vital Signs: Temp Pulse Resp BP Pulse Ox O2 Del Method O2 Flow Rate 97.7 F 70 18 123/64 94 L Nasal Cannula 2 05/27/24 08:00 05/27/24 12:00 05/27/24 12:05/27/24 12:00 05/27/24 12:05/27/24 12:00 05/27/24 12:00 FiO2 [...] Zamora DO 1302 Signed By: 05/27/24 1621 [facility] Inc[facility] summary Author Richard Zamora [facility] Note Date/Time May 27, 2024 3:21 pm [facility] [address] [place] [address] Discharge Summary Signed Patient: Leighton Arciniega MR#: [id number] : 1945 Acct:[id number] Age/Sex: 78 / M Adm Date: 5 Loc: Room: [address] [place] [address]: Richard Zamora DO Copies to: MD Richard Love DO Mourhaf A Traboulssi, MD~ Providers Date of Discharge: 05/27/24 Discharging Provider: Richard Zamora Primary Care Provider: Lori Nugent Consults: 05/20/24 03:03 Consult to Cardiology Routine Comment: Consulting Provider: [facility], [facility] Reason For Exam: CHF on Bipap Has [...] visits to different hospitals, primarily outside of [facility], with shortness of breath. For this particular hospital stay he presented to [facility] on May 19 with cough, shortness of [...] to BiPAP. So on arrival here to [facility] he was put in the ICU. He had pulmonology and cardiology consultation. In the past he has not been started on an NALINI or an ARB or SGLT2 inhibitor due to concerns about his kidney function. An echocardiogram performed on May 11 showed left ventricular ejection fraction of 2025% with concentric left [...] 2 or 3 more days. The pulmonology mining consultant became concerned about secondary problem in [...] have that done by the patient's regular plant pathologist, Dr. Dickinson, in the office. At the end of the hospital stay the patient was excepted to a [facility] facility, but after getting ready to take [...] 49 Discharge Plan Discharge Plan Patient Disposition: Halfway Facility Activity: No Activity Restriction Diet: Diabetic [...] Patient Ordered By: Richard Zamora Follow Up: [facility] [Outside] (Please call to pre-register for your outpatient PFT and CXR. ) Osvaldo Dickinson MD [Active Staff] - 06/15/24 2:30 pm Darshan Willams MD [Active Staff] - 07/06/24 1:30 pm (Post hospital follow-up appointment. The patient should have repeat two-view chest x-ray as well as pulmonary function tests prior to his office follow-up visit.) Lori Nugent MD [Primary Care Provider] - (Please arrange a follow-up appointment once discharged from SNF. ) Continuity of Care Document Health Concerns: A [facility] screening has identified you as FRAIL or [...] Strong: Four Ways to Beat the Frailty [email or web address]-[email or web address]/rdmk-cpaiyf-c our-w nvw-kz-zanc-non-hegoweb-cwcj Exam Physical Exam Vital Signs: Temp Pulse [...] By: Richard Zamora DO 1302 Signed By: <Electronically signed by Richard Zamora, > 05/27/[address] [facility] Work Phone: Evaluation note* Diagnosis Sick sinus syndrome (CMS/HCC)- Primary Sinoatrial node dysfunction Mobitz type II atrioventricular block Mobitz (type) II atrioventricular block Pacemaker Cardiac pacemaker in situ Essential hypertension Unspecified essential hypertension Dilated cardiomyopathy (CMS/HCC) Other primary cardiomyopathies Paroxysmal atrial fibrillation (CMS/HCC) Atrial fibrillation documented in this encounter [facility] Work Phone: Evaluation note* Diagnosis Essential hypertension- Primary Unspecified essential hypertension Sick sinus syndrome (Multi) Sinoatrial node dysfunction Mixed hyperlipidemia Paroxysmal atrial fibrillation (Multi) Atrial fibrillation Dilated cardiomyopathy (Multi) Other primary cardiomyopathies Pacemaker Cardiac pacemaker in situ BMI 33.0-33.9,adult documented in this encounter [facility] Work Phone: Evaluation note* Diagnosis [...] Non-smoker BMI 30.0-30.9,adult documented in this encounter [facility] Work Phone: Evaluation note* Diagnosis VIRGILIO (obstructive sleep apnea)- Primary Obstructive sleep apnea (adult) (pediatric) Hypersomnia Hypersomnia, unspecified PLMD (periodic limb movement disorder) Periodic limb movement disorder Obesity due to excess calories, unspecified classification, unspecified whether serious comorbidity present Snoring Other dyspnea and respiratory abnormality documented in this encounter [facility] HealthcareEvaluation noteNo assessment information availableSt. Francis Hospital Work Phone: Evaluation note* Diagnosis Nonischemic cardiomyopathy (Multi)- Primary Other primary cardiomyopathies Sick sinus syndrome (Multi) Sinoatrial node dysfunction Paroxysmal atrial fibrillation (Multi) Atrial fibrillation Pacemaker Cardiac pacemaker in situ Mixed hyperlipidemia Essential hypertension Unspecified essential hypertension Stage 4 chronic kidney disease (Multi) Non-smoker BMI 27.0-27.9,adult [facility] resident documented in this encounter [facility] Work Phone: History of Present [...] on the basis of his improve lifestyle modification.-[facility]-Sergio 250 DO Work Phone: History [...] the merits of diet and weight loss. 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 -[facility] [employer] 600 DO Work Phone: Hospital Discharge instructions Additional [...] SNF. Check CBC Q Wednesday while at SNF.[facility] Work Phone: Reason for referral (narrative)* Consultation (Routine) - Authorized Specialty Diagnoses / Procedures Referred By Contac t Referred To Contact Cardiology Diagnoses Sick sinus syndrome (CMS/HCC) Procedures Follow Up In Cardiology Varghese Caal MD [address] [place] [address] [address], [address] [address] Varghese Caal MD [address] [place] [address] [address], [address] [address] Referral ID Status Reason Start Date Expiration Date V isits Requested Visits Authorized [id number] Authorized 02/10/2023 02/10/2024 1 1 [facility] Work Phone: Reason for referral (narrative)* Consultation (Routine) - Authorized Specialty Diagnoses / Procedures Referred By Contac t Referred To Contact Cardiology Diagnoses Sick sinus syndrome (Multi) Procedures Follow Up In Cardiology Varghese Caal MD [address] [place], [place] [address]er [facility] 2, [address] [address] Osvaldo Dickinson MD [address] [place] [address], [address] [id number] Referral ID Status Reason Start Date Expiration Date V isits Requested Visits Authorized [id number] Authorized 08/25/2023 08/24/2024 1 1 [facility] Work Phone: Chief Complaint LEIGHTON [...] heart failure Unknown brother Heart disease Unknown Relationship Condition Age at Onset Recorded Date/T maicol mother Congestive heart failure Unknown Diabetes mellitus Unknown Myocardial infarction Unknown Heart disease Unknown father Chronic kidney disease Unknown sister Liver failure Unknown brother Heart disease Unknown Congestive heart failure Unknown Summary Purpose Advance Directives No Advanced Directives Records Found Advance Directive Response Recorded Date/ Time Advance Directives No January 2:23pm Advance Directive Response Recorded Date/ Time Advance Directives No January 3:23pm Chief Complaint and Reason for Visit Chief Complaint Admit Date CHF, UTI, Pulmonary Edema May 20 2:38am CHF, UTI, Pulmonary Edema May 20 12:29pm CHF, UTI, Pulmonary Edema May 20 12:59pm J44.9 J84.9 R91.8 June 26, 2024 1:29 pm J44.9 J84.9 R91.8 June 26, 2024 5:40 pm J84.9 June 29, 2024 1:5 8pm 6 wk Hosp F/U COPD, ILD July 06, 2024 12:09pm Unknown August 17, 2024 10:36 am Reason for Visit Admit Date Afib May 20, 2024 2:38 am Chronic [...] Pulmonary infiltrates May 20, 2024 2: 38am COPD (chronic obstructive pulmonary dise ase) July 06, 2024 12:09pm Interstitial lung disease July 06 12:09pm Obstructive sleep apnea July 06, 2024 12:09pm Chief Complaint Admit Date Congestive Heart Failure [...] and content) DATE CREATED AUTHOR 06/01/2022 [facility] DATE CREATED AUTHOR AUTHOR'S ORGANIZ ATION 07/03/2022 [email or web address] DATE CREATED AUTHOR AUTHOR'S ORGANIZ ATION 11/05/2022 [facility] DATE CREATED AUTHOR AUTHOR'S ORGANIZ ATION 01/18/2024 [facility] DATE CREATED AUTHOR AUTHOR'S ORGANIZ ATION 02/21/2024 [facility] DATE CREATED AUTHOR AUTHOR'S ORGANIZ ATION 04/02/2024 [facility] DATE CREATED AUTHOR AUTHOR'S ORGANIZ ATION 04/07/2024 [facility] DATE CREATED AUTHOR AUTHOR'S ORGANIZ ATION 04/28/2024 [facility] DATE CREATED AUTHOR AUTHOR'S ORGANIZ ATION 05/21/2024 [facility] DATE CREATED AUTHOR AUTHOR'S ORGANIZ ATION 05/24/2024 [facility] DATE CREATED AUTHOR AUTHOR'S ORGANIZ ATION 06/17/2024 [facility] DATE CREATED AUTHOR AUTHOR'S ORGANIZ ATION 06/20/2024 [facility] DATE CREATED AUTHOR AUTHOR'S ORGANIZ ATION 07/18/2024 [facility] DATE CREATED AUTHOR AUTHOR'S ORGANIZ ATION 07/25/2024 [facility] DATE CREATED AUTHOR AUTHOR'S ORGANIZ ATION 08/21/2024 [facility] DATE CREATED AUTHOR AUTHOR'S ORGANIZ ATION 09/21/2024 [facility] DATE CREATED AUTHOR AUTHOR'S ORGANIZ ATION 09/24/2024 [facility] DATE CREATED AUTHOR AUTHOR'S ORGANIZ ATION 10/06/2024 [facility] Reason for Visit (unrecogniz ed section and content) Reason Comments Follow-up 6-9mo Reason Comments Follow-up 6-9 months Specialty Diagnoses / Procedures Referred By Contac t Referred To Contact Cardiology Diagnoses Sick sinus syndrome (Multi) Procedures Follow Up In Cardiology Varghese Caal MD [address] [place], [place] [id number] Varghese Caal MD [address] [place] [id number] Referral ID Status Reason Start Date Expiration Date V isits Requested Visits Authorized [id number] Authorized 02/10/2023 02/10/2024 1 1 Reason Comments Skin Check Follow-up Reason Comments Follow-up 6-9 months Specialty Diagnoses / Procedures Referred By Elida t Referred To Contact Cardiology Diagnoses Sick sinus syndrome (Multi) Procedures Follow Up In Cardiology Varghese Caal MD Traboulssi, Mourhaf, MD [address] [place] [address], [place] [phone] Phone: tel: fax: Referral ID Status Reason Start Date Expiration Date V isits Requested Visits Authorized [id number] Authorized 08/25/2023 08/24/2024 1 1 Reason Comments Sleep Apnea Reason Comments [place] [facility] [place] Care Teams (unrecognized sec tion and content) Team Status: Active Member Role Status Dates Lori Nugent MD Primary Care Provider Active Team Status: Active Member Role Status Dates Sumanth Johnson DO Attending Provider Active Sta rt: April 08, 2024 Team Status: Inactive Member Role Status Dates Lori Nugent MD Primary Care Provider Active Start: May [...] 2024 End: May 13, 2024 Sanaz Stewart , [employer]- Other Provider Active Sta rt: May 09, 2024 End: May 13, 2024 Team Status: Active Member Role Status Dates Lori Nugent MD Primary Care Provider Active Start: May 13, 2024 Alexa Corona MD Admit Provider, Ot er Provider Active Start: May 13, 2024 [...] Provider Active Start: ebruary 2024 Sanaz Stewart [employer]-BC Other Provider Active Sta rt: May 13, 2024 John Nettles MD Attending Provider Active Start: April Team Status: Inactive Member Role Status Dates Dacia Rene DO Attending Provider Active Start: May 18, 2024 End: May 18, 2024 Team Status: Inactive Member Role Status Dates Lori Nugent MD Primary Care Provider Active Start: May 20, 2024 End: May 27, 2024 Don Patel DO Admit Provider Active Start: May 20, 2024 End: May 27, 2024 Shirley Harvey DO Referring Provider Active S tart: May 20, 2024 End: May 27, 2024 Richard Zamora DO Attending Provider Active Start: May 20, 2024 End: May 27, 2024 Autumn Woody [facility]N [facility] Other Provider Active Start: May [...] Status: Active Member Role Status Dates Lori Nugent MD Primary Care Provider Active Start: May [...] Other Provider Active Start: 2024 Sanaz Stewart [employer]-BC Other Provider Active Sta rt: May 20, [...] Status: Active Member Role Status Dates Lori Nugent MD Primary Care Provider Active Start: May [...] Other Provider Active Start: 2024 Sanaz Stewart [employer]-BC Other Provider Active Sta rt: May 20, [...] Titi Solomon MD Other Provider Active Start: M arch 2024 Denny Weldon MD Other Provider Activ e Start: May 20, 2024 Yue Lindsey MD Other Provider Active Start: M arch 2024 Sarah Reyes MD Other Provider Active Start: May 20, 2024 John Nettles MD Attending Provider Activ e Start: May 20, 2024 Team Status: Inactive Member Role Status Dates Lori Nugent MD Primary Care Provider Active Start: June 26, 2024 End: June 26, 2024 Richard Zamora DO Attending Provider Active Start: June 26, 2024 End: June 26, 2024 Team Status: Active Member Role Status Dates Lori Nugent MD Primary Care Provider Active Start: June 26, 2024 Richard Zamora DO Other Provider Active Start: June 26, 2024 Darshan Willams MD Attending Provider Active Start: June 26, 2024 Team Status: Inactive Member Role Status Dates Benton Vasquez DO Attending Provider Active S tart: March 11, 2024 End: March 11, 2024 Team Status: Inactive Member Role Status Dates Benton Vasquez DO Attending Provider Active S tart: March 28, 2024 End: March 28, 2024 Deputy Attorney General Relationship Specialty Start Date End Date Andrea Espinoza DO [address] [place] [address] PCP - General 03/22/99 Deputy Attorney General Relationship Specialty Start [place] [address] [place] [id number] PCP - General 03/22/99 Deputy Attorney General Relationship Specialty Start Date End Date Lori Nugent MD [address] [place] [phone] PCP - General Family Medicine 10/09/22 Deputy Attorney General Relationship Specialty Start Date End Date Andrea Espinoza DO [address] [place] [address] PCP - General 03/22/99 Deputy Attorney General Relationship Specialty Start Date End Date Lori Nugent MD [address] [place] [phone] PCP - General Family Medicine 10/09/22 Deputy Attorney General Relationship Specialty Start Date End Date Lori Nugent MD [address] [place] [phone] PCP - General Family Medicine 10/09/22 Deputy Attorney General Relationship Specialty Start Date End Date Andrea Espinoza DO [facility] [place] [address] PCP - General 03/22/99 Team Status: Inactive Member Role Status Dates Lori Nugent MD Primary Care Provider Active Start: June 29, 2024 End: June 29, 2024 Richard Zamora DO Attending Provider Active Start: June 29, 2024 End: June 29, 2024 Team Status: Inactive Member Role Status Dates Lori Nugent MD Primary Care Provider Active Start: July 06, 2024 End: July 06, 2024 Darshan Willams MD Attending Provider Active Start: July 06, 2024 End: July 06, 2024 [facility] Active Start : July 06, 2024 End: July 06, 2024 Team Status: Inactive Member Role Status Dates Benton Vasquez DO Attending Provider Active S tart: August 17, 2024 End: August 17, 2024 Goals (unrecognized section and content) Goals [...] BE BASED ON THE PRIMARY CLINICAL RECORDS. [email or web address]. provides no warranty or guarantee of the accuracy or completeness of information in this document.
[2024-10-06 21:58] VITALS: BP 145/77; PULSE 68; TEMP 36.7; O2SAT 96; BMI 28.0
--- NOTE | 2024-10-06 22:02 | PC.NURSE ---
Concerned to to having several low blood sugar results today. FSBS of 108 on arrival, patient reports taking glucagon injection prior to coming to ED. Denies any changes in insulin or diabetic medications. Does relay that he is currently taking antibiotic for UTI.
--- NOTE | 2024-10-06 22:23 | ED.GENADUL1 ---
HPI HPI - General Adult General Chief complaint: Recheck/Abnormal Lab/Rx Stated complaint: LOW BLOOD SUGAR Time Seen by Provider: 10/06/24 22:14 Source: patient Mode of arrival: walk-in History of Present Illness HPI narrative: cc - low blood sugar Pt is an insulin dependent diabetic who also takes either glipizide in the evening with dinner and wears a dexicom type glucose monitor - just changed 5-6 days ago. His glucose normally is in the 110-120 range. Yesterday his readings were in the low 70s/high 60s. Today the numbers have dipped into the 50s. He became concerned tonight when he ate pizza and noted his glucose was continuing to decrease. He denies any other symptoms. He is currently taking an antibiotic for UTI. He did not take his glipizide and also has not taken his night time dose of insulin. Related Data Home Medications ?Medication ?Instructions ?Recorded ?Confirmed acetaminophen 500 mg capsule 1,000 mg PO Q6H PRN fever or pain 02/26/24 10/06/24 allopurinol 300 mg tablet 300 mg PO DAILY 02/26/24 10/06/24 apixaban 5 mg tablet (Eliquis) 5 mg PO Q12H 02/26/24 10/06/24 aspirin 81 mg tablet,delayed 81 mg PO .weekly 02/26/24 10/06/24 release (Adult Aspirin Regimen) calcium 315 mg (as 1 tab PO DAILY 02/26/24 10/06/24 citrate)-vitamin D3 5 mcg (200 unit) tablet (Calcium Citrate + D) carvedilol 6.25 mg tablet 6.25 mg PO Q12H 02/26/24 10/06/24 cyanocobalamin (vitamin B-12) 1,000 mcg PO DAILY 02/26/24 10/06/24 1,000 mcg tablet (Vitamin B-12) multivitamin (Daily Multi-Vitamin 1 tab PO DAILY 02/26/24 10/06/24 tablet) omeprazole 20 mg capsule,delayed 20 mg PO DAILY 02/26/24 10/06/24 release semaglutide 1 mg/dose (4 mg/3 mL) 1 mg subcut QWEEK 02/26/24 10/06/24 subcutaneous pen injector (Ozempic) simvastatin 20 mg tablet 20 mg PO DAILY 02/26/24 10/06/24 spironolactone 25 mg tablet 25 mg PO DAILY 02/26/24 10/06/24 terazosin 10 mg capsule 10 mg PO BEDTIME 02/26/24 10/06/24 finasteride 5 mg tablet 5 mg PO DAILY 05/03/24 10/06/24 insulin glargine 100 unit/mL (3 12 unit subcut .q hs 05/19/24 10/06/24 mL) subcutaneous pen (Lantus Solostar U-100 Insulin) insulin glargine 100 unit/mL (3 25 unit subcut QAM 05/19/24 10/06/24 mL) subcutaneous pen (Lantus Solostar U-100 Insulin) ferrous sulfate 325 mg (65 mg 325 mg PO DAILY 10/06/24 10/06/24 iron) tablet (iron) furosemide 20 mg tablet 60 mg PO DAILY 10/06/24 10/06/24 glipizide 10 mg tablet 10 mg PO BID 10/06/24 10/06/24 ruxolitinib 1.5 % topical cream applic topical 10/06/24 (Opanujura) valsartan 40 mg tablet 40 mg PO BID 10/06/24 10/06/24 Allergies Allergy/AdvReac Type Severity Reaction Status Date / Time fosinopril (From Monopril) Allergy Severe shortness Verified 10/06/24 21:57 of breath metoprolol Allergy Severe shortness Verified 10/06/24 21:57 of breath strawberry Allergy Severe Rash Verified 10/06/24 21:57 Opioid HPI Opioid Management Most Recent Opioid Data: Last Pain Scale 8 07/24/24, 16:57 Last Pain Intensity 0 05/05/24, 10:47 Last ORT Total Score 0 05/19/24, 00:55 Last ORT Risk Category Low Risk 05/19/24, 00:55 [facility] Medical History (Updated 10/06/24 @ 22:31 by Delmar Blount) Fever ?R50.9 - Fever, unspecified (ICD-10) Acute UTI ?N39.0 - Urinary tract infection, site not specified (ICD-10) CHF (congestive heart failure) ?I50.9 - Heart failure, unspecified (ICD-10) Hypoxia ?R09.02 - Hypoxemia (ICD-10) Congestive heart failure ?I50.9 - Heart failure, unspecified (ICD-10) Pneumonia ?J18.9 - Pneumonia, unspecified organism (ICD-10) Acute respiratory distress ?R06.03 - Acute respiratory distress (ICD-10) Pneumonia ?J18.9 - Pneumonia, unspecified organism (ICD-10) Acute on chronic diastolic (congestive) heart failure ?I50.33 - Acute on chronic diastolic (congestive) heart failure (ICD-10) Hospital acquired PNA ?J18.9 - Pneumonia, unspecified organism (ICD-10) ?Y95 - Nosocomial condition (ICD-10) Shortness of breath ?R06.02 - Shortness of breath (ICD-10) Congestive heart failure ?I50.9 - Heart failure, unspecified (ICD-10) Pneumonia ?J18.9 - Pneumonia, unspecified organism (ICD-10) Severe sepsis ?A41.9 - Sepsis, unspecified organism (ICD-10) ?R65.20 - Severe sepsis without septic shock (ICD-10) COPD exacerbation ?J44.1 - Chronic obstructive pulmonary disease with (acute) exacerbation (ICD-10) Acute exacerbation of chronic heart failure ?I50.9 - Heart failure, unspecified (ICD-10) Acute hypoxemic respiratory failure ?J96.01 - Acute respiratory failure with hypoxia (ICD-10) Acute kidney injury ?N17.9 - Acute kidney failure, unspecified (ICD-10) Bladder spasm ?N32.89 - Other specified disorders of bladder (ICD-10) Urinary tract infection ?N39.0 - Urinary tract infection, site not specified (ICD-10) Urinary tract infection ?N39.0 - Urinary tract infection, site not specified (ICD-10) Failure of outpatient treatment ?Z78.9 - Other specified health status (ICD-10) Urinary tract infection ?N39.0 - Urinary tract infection, site not specified (ICD-10) Skin cancer ?C44.90 - Unspecified malignant neoplasm of skin, unspecified (ICD-10) Myocardial infarction ?I21.9 - Acute myocardial infarction, unspecified (ICD-10) Pacemaker ?Z95.0 - Presence of cardiac pacemaker (ICD-10) CKD (chronic kidney disease) ?N18.9 - Chronic kidney disease, unspecified (ICD-10) CAD (coronary artery disease) ?I25.10 - Atherosclerotic heart disease of [place] coronary artery without angina pectoris (ICD-10) A-fib ?I48.91 - Unspecified atrial fibrillation (ICD-10) Erectile dysfunction ?N52.9 - Male erectile dysfunction, unspecified (ICD-10) UTI (urinary tract infection) ?N39.0 - Urinary tract infection, site not specified (ICD-10) GERD (gastroesophageal reflux disease) ?K21.9 - Gastro-esophageal reflux disease without esophagitis (ICD-10) Hypertension ?I10 - Essential (primary) hypertension (ICD-10) Diabetes ?E11.9 - Type 2 diabetes mellitus without complications (ICD-10) Surgical History History of arthroscopic knee surgery ?Z98.890 - Other specified postprocedural states (ICD-10) Hx of tonsillectomy ?Z90.89 - Acquired absence of other organs (ICD-10) Family History Mother Family history of CHF (congestive heart failure) Family history of myocardial infarction Family history of hypertension Family history of diabetes mellitus Family history of COPD (chronic obstructive pulmonary disease) Grandmother Family history of CHF (congestive heart failure) Brother Family history of CHF (congestive heart failure) Family history of myocardial infarction Family history of hypertension Family history of COPD (chronic obstructive pulmonary disease) Father Kidney failure Social History Within the past year, how often did you have a drink containing alcohol: never Score interpretation: A score less than 4 is consistent with normal alcohol consumption. Smoking status: Former smoker Non-prescribed substance use: denies use Known occupational exposures/hazards: No Highest level of school completed/degree received: some college, no degree Do you want help with school or training: No Little interest or pleasure in doing things: not at all Feeling down, depressed, or hopeless: not at all Gender Identity: male Exam Narrative Exam Narrative: Nurses notes and vital signs reviewed and patient is not hypoxic. afebrile General: Well-appearing and in no apparent distress. Skin: Warm, dry, no pallor noted. Head: Normocephalic, atraumatic. Eye: Pupils are equal, round and EOMI. No scleral icterus. Ears, Nose, Mouth, and Throat: Oral mucosa is moist Cardiovascular: Regular Rate and Rhythm without murmur, gallop or rub. Respiratory: No accessory muscle use or respiratory distress. Lungs are clear to auscultation, no wheezing, rales or rhonchi Musculoskeletal: normal ROM GI: Abdomen is soft, non-distended. Normal bowel sounds. No tenderness to palpation. No rebound, guarding, or rigidity noted. Neurological: A&O x4. No cranial nerve dysfunction observed. No truncal ataxia. Moves all extremities. Sensation intact. Psychiatric: Cooperative and interactive. Normal mood and affect. Constitutional Vital Signs, click to edit/add: Last Vital Signs Temp 98.1 F 10/06/24 21:58 Pulse 68 10/06/24 21:58 Resp 20 10/06/24 21:58 BP 145/77 H 10/06/24 21:58 Pulse Ox 96 10/06/24 21:58 O2 Del Method Room Air 10/06/24 21:58 Course Vital Signs Vital signs: Vital Signs Temperature 98.1 F 10/06/24 21:58 Pulse Rate 68 10/06/24 21:58 Respiratory Rate 20 10/06/24 21:58 Blood Pressure 145/77 H 10/06/24 21:58 Pulse Oximetry 96 10/06/24 21:58 Oxygen Delivery Method Room Air 10/06/24 21:58 Temperature 98.1 F 10/06/24 21:58 Pulse Rate 68 10/06/24 21:58 Respiratory Rate 10/06/24 21:58 Blood Pressure 145/77 H 10/06/24 21:58 Pulse Oximetry 96 10/06/24 21:58 Oxygen Delivery Method Room Air 10/06/24 21:58 Medical Decision Making [facility] Narrative Medical decision making narrative: Patient's glucose in the ED is 108. Peripheral IV was established. Patient was ordered to receive IV D50. His glucometer read 201 about 35 minutes later. Patient will skip his evening dose of insulin. He has already skipped his glipizide. In the morning he will base his morning dose of insulin on his blood sugar at that time. We discussed evaluating his glucose readings and decreasing his morning insulin if his glucose is 120 or less Lab Data Lab results reviewed: Yes I reviewed the patient's lab results Labs: Lab Results 10/06/24 10/06/24 Range/Units 21:58 22:08 Sodium 129 L (136-145) mmol/L Potassium 4.7 (3.5-5.1) mmol/L Chloride 95 L (98-107) mmol/L Carbon Dioxide 25.6 (21.0-32.0) mmol/L Anion Gap 13.1 BUN 48.0 H (7.0-18.0) mg/dL Creatinine 1.59 H (0.70-1.30) mg/dL Est GFR ( Amer) 51 L (>=60 mL/min/1.73m^2) Est GFR (Non-Af Amer) 42 L (>=60 mL/min/1.73m^2) BUN/Creatinine Ratio 30.2 Glucose 100 (74-106) mg/dL Calcium 9.2 (8.5-10.1) mg/dL POC Glucose 108 H (74-106) mg/dL Discharge Plan Discharge Chief Complaint: Recheck/Abnormal Lab/Rx Clinical Impression: Hypoglycemic episode in patient with diabetes mellitus Patient Disposition: Home, Self-Care Time of Disposition Decision: 22:31 Prescriptions / Home Meds: No Action finasteride 5 mg tablet 5 mg PO DAILY insulin glargine [Lantus Solostar U-100 Insulin] 100 unit/mL (3 mL) insulin pen 25 unit subcut QAM insulin glargine [Lantus Solostar U-100 Insulin] 100 unit/mL (3 mL) insulin pen 12 unit subcut .q hs carvedilol 6.25 mg tablet 6.25 mg PO Q12H spironolactone 25 mg tablet 25 mg PO DAILY simvastatin 20 mg tablet 20 mg PO DAILY omeprazole 20 mg capsule,delayed release(DR/EC) 20 mg PO DAILY allopurinol 300 mg tablet 300 mg PO DAILY Eliquis 5 mg tablet 5 mg PO Q12H cyanocobalamin (vitamin B-12) [Vitamin B-12] 1,000 mcg tablet 1,000 mcg PO DAILY aspirin [Adult Aspirin Regimen] 81 mg tablet,delayed release (DR/EC) 81 mg PO .weekly calcium citrate-vitamin D3 [Calcium Citrate + D] 315 mg-5 mcg (200 unit) tablet 1 tab PO DAILY multivitamin [Daily Multi-Vitamin] Tablet 1 tab PO DAILY acetaminophen 500 mg capsule 1,000 mg PO Q6H PRN (Reason: fever or pain) terazosin 10 mg capsule 10 mg PO BEDTIME Ozempic 1 mg/dose (4 mg/3 mL) pen injector 1 mg subcut QWEEK furosemide 20 mg tablet 60 mg PO DAILY valsartan 40 mg tablet 40 mg PO BID Opzelura 1.5 % cream TOPICAL glipizide 10 mg tablet 10 mg PO BID ferrous sulfate [iron] 325 mg (65 mg iron) tablet 325 mg PO DAILY Print Language: Tamazight Instructions: Hypoglycemia in a Person with Diabetes (ED), What to Do if Your Blood Sugar is Low (ED) Referrals: Jayy Dutta MD [Primary Care Provider, Family Practice] - 1 week
[2024-10-06] MEDS: DEXTROSE 50 %-WATER 25 GM/50 ML SYRINGE IV (22:29)
[2024-10-06 22:52] LABS: Anion Gap 13.1; Blood Urea Nitrogen 48.0 mg/dL (7.0-18.0); Calcium 9.2 mg/dL (8.5-10.1); Carbon Dioxide 25.6 mmol/L (21.0-32.0); Chloride 95 mmol/L (98-107); Estimated GFR (African America 51 (>=60 mL/min/1.73m^2); Estimated GFR (Non-African Ame 42 (>=60 mL/min/1.73m^2); Glucose 100 mg/dL (74-106); Potassium 4.7 mmol/L (3.5-5.1); Sodium 129 mmol/L (136-145)
== END 2024-10-06 23:12 | disposition home or self-care (01) ==
PROVIDERS: Emergency Provider Emergency Medicine; PCP Family Medicine
DX: E11.649 Type 2 diabetes mellitus with hypoglycemia without coma (principal); Z87.440 Personal history of urinary (tract) infections; Z79.4 Long term (current) use of insulin; Z79.84 Long term (current) use of oral hypoglycemic drugs; Z95.0 Presence of cardiac pacemaker; Z87.891 Personal history of nicotine dependence
CPT/HCPCS: 36415; 80048; 99284

== ENCOUNTER 2024-11-17 11:45 | Outpatient (RCR) | payer MEDICARE, OTHER, SELFPAY ==
[2024-11-13 08:45] VITALS: BP 147/69; PULSE 70; TEMP 36.4; O2SAT 93
[2024-11-13] MEDS: ERTAPENEM SODIUM 1 GM in 0.9 % SODIUM CHLORIDE 50 ML IV (09:21)
[2024-11-14 11:55] VITALS: BP 126/57; PULSE 70; TEMP 36.8; O2SAT 94
[2024-11-14] MEDS: ERTAPENEM SODIUM 1 GM in 0.9 % SODIUM CHLORIDE 50 ML IV (11:59)
[2024-11-15 11:48] VITALS: BP 142/65; PULSE 68; TEMP 36.6; O2SAT 97
[2024-11-15] MEDS: ERTAPENEM SODIUM 1 GM in 0.9 % SODIUM CHLORIDE 50 ML IV (11:53)
[2024-11-16 11:48] VITALS: BP 142/78; PULSE 72; TEMP 36.8; O2SAT 96
[2024-11-16] MEDS: ERTAPENEM SODIUM 1 GM in 0.9 % SODIUM CHLORIDE 50 ML IV (12:00)
[2024-11-17 11:45] VITALS: BP 144/70; PULSE 68; TEMP 36.4; O2SAT 96
[2024-11-17] MEDS: ERTAPENEM SODIUM 1 GM in 0.9 % SODIUM CHLORIDE 50 ML IV (11:55)
== END 2024-11-19 23:59 | disposition home or self-care (01) ==
LOC: INF 11:45
PROVIDERS: PCP Family Medicine; Visit Provider Urology
DX: N39.0 Urinary tract infection, site not specified (principal)
CPT/HCPCS: 96365; J1335

== ENCOUNTER 2024-12-21 09:41 | Outpatient (OUT) | payer MEDICARE, OTHER, SELFPAY ==
--- NOTE | 2024-12-21 10:00 | CA_ITS ---
Patient Name: LEIGHTON ARCINIEGA MR#: [id number] : 1945 Exam Date: 12/21/2024 Ordering Doctor: DR LORI MEDINA . ECHOCARDIOGRAM REPORT PROCEDURE: CA ECHO DOPPLER COMPLETE INDICATIONS: Cardiomyopathy, COPD, pacemaker, diabetes, hypertension, h/o [place] COMPARISON: None. DESCRIPTION: COMPLETE ECHOCARDIOGRAM Real-time transthoracic echocardiography with 2D, M-mode, spectral and color flow Doppler performed. QUALITY: Technical quality was good. LEFT VENTRICLE: Normal chamber size. Thickened septal wall. There is hypokinesis to akinesis of the mid to distal septum and apex. Global systolic function is moderately to severely reduced. Estimated left ventricular ejection fraction is 30% LV EF: Moderately to severely reduced left ventricular ejection fraction, (25-35%). DIASTOLIC: Grade II diastolic dysfunction. ATRIAL SEPTUM: Visually appears intact. LEFT ATRIUM: Moderate dilatation. RIGHT ATRIUM: Mild dilatation. RIGHT VENTRICLE: Normal chamber size. Systolic function is normal. Pacer wire present. TRICUSPID VALVE: Normal mobility and thickness. No stenosis with mild regurgitation. Doppler studies reveal moderately (45-60) elevated right sided pressures. RVSP 54 mmHg MITRAL VALVE: Normal mobility and thickness. No evidence of mitral valve stenosis. There is no mitral annular calcification. Moderate mitral regurgitation. AORTIC VALVE: Normal trileaflet appearance. Normal leaflet mobility. No evidence of aortic valve stenosis. Calcification on the left coronary cusp. No aortic regurgitation. AORTIC ROOT: Normal diameter and appearance, measuring 3.5 cm. Ascending aorta is normal in size, measuring 2.8 cm. PULMONIC VALVE: Normal thickness and mobility. No stenosis. Mild regurgitation. PERICARDIUM: No evidence of pericardial effusion. IVC: IVC is dilated (2.3 cm), does not collapse. PLEURA: CONCLUSION: 1. The left ventricle is normal in size and exhibits segmental wall motion abnormalities. Global systolic function is moderately to severely reduced. Estimated LVEF is 30%. 2. Normal right ventricular size and systolic function. 3. Mild to moderate biatrial dilatation. 4. Grade 2 diastolic dysfunction. 5. Moderate mitral regurgitation. 6. Mild tricuspid regurgitation. 7. Moderately elevated right-sided pressures. RVSP is 54 mmHg. Adult Echocardiography Procedure Report Left Ventricle LVEDD (3.7 - 5.6 cm): 5.87 cm LVESD (2.2 - 4.0 cm): 4.39 cm LVIVS thickness (0.6 - 1.2 cm): 1.41 cm LVPW thickness (0.5 - 1.0 cm): 0.94 cm e': 0.12 m/s E - e': 5.62 LVOT Max Gradient: 1.68 mm[Hg] LVOT Area (cm2): 0.65 m/s Peak Velocity (LVOT): 0.65 m/s Mean Velocity (LVOT): 0.44 m/s LVOT Diameter 2.30 cm Left Atrium LA Volume Index (2D A2C): 46.89 ml/m2 Left Atrium Systolic Dimension: 5.09 cm Mitral Valve MV E to A Ratio: 1.68 Mitral Valve A-Wave Peak Velocity: 0.41 m/s Mitral Valve E-Wave Peak Velocity: 0.69 m/s Right Ventricle Aorta AO Root Diam: 3.54 cm Ascending Ao Diam: 2.75 cm Aortic Valve AoV Area (Peak Ajay): 2.31 cm2, 2.31 cm2 AoV Area (VTI): 2.18 cm2, 2.18 cm2 Peak Velocity(Antegrade Flow): 1.16 m/s Peak Gradient(Antegrade Flow): 5.42 mm[Hg] Mean Velocity(Antegrade Flow): 0.71 m/s Mean Gradient(Antegrade Flow): 2.48 mm[Hg] Velocity Time Integral: 24.91 cm Tricuspid Valve Peak Velocity (Regurgitant Flow): 3.11 m/s Pulmonic Valve Mean Gradient: 1.68 mm[Hg] Mean Velocity: 0.60 m/s Peak Velocity: 1.02 m/s, 1.01 m/s Peak Gradient: 4.15 mm[Hg], 4.07 mm[Hg] Right Atrium Right Atrium Systolic Pressure: 57.66 ml, 57.66 ml Dictated by: John Armstrong M.D. on 12/21/2024 at 10:55 Approved by: John Armstrong M.D. on 12/21/2024 at 11:02
== END 2024-12-21 09:42 | disposition home or self-care (01) ==
LOC: CARD 09:41
PROVIDERS: PCP Family Medicine; Visit Provider Family Medicine
DX: J44.9 Chronic obstructive pulmonary disease, unspecified (principal); I42.8 Other cardiomyopathies
CPT/HCPCS: 93306; 93356

== ENCOUNTER 2025-03-02 09:37 | Outpatient (OUT) | payer MEDICARE, OTHER, SELFPAY ==
[2025-03-02 10:15] LABS: Hematocrit 32.1 % (42.0-54.0); Hemoglobin 10.1 g/dL (14.0-18.0); Immature Granulocytes Abs Auto 0.04 10^3/uL (0.00-0.03); Immature Granulocytes Pct Auto 0.4 % (0.0-0.5); Lymphocytes Absolute Auto 1.4 10^3/uL (1.2-3.8); Mean Corpuscular HGB Conc 31.5 g/dL (29.9-35.2); Mean Corpuscular Hemoglobin 31.8 pg (25.9-34.0); Mean Corpuscular Volume 100.9 fL (80.0-94.0); Platelet Count 201 10^3/uL (150-450); Red Blood Count 3.18 10^6/uL (4.70-6.10); White Blood Count 9.3 10^3/uL (4.0-11.0)
[2025-03-02 10:58] LABS: Alanine Aminotransferase 34 U/L (16-63); Albumin Globulin Ratio 1.1; Albumin Level 3.3 g/dL (3.4-5.0); Alkaline Phosphatase 107 U/L (46-116); Amylase 66 U/L (25-115); Anion Gap 12.3; Aspartate Amino Transferase 19 U/L (15-37); Blood Urea Nitrogen 42.0 mg/dL (7.0-18.0); Calcium 9.4 mg/dL (8.5-10.1); Carbon Dioxide 30.0 mmol/L (21.0-32.0); Chloride 106 mmol/L (98-107); Estimated GFR (African America 49 (>=60 mL/min/1.73m^2); Estimated GFR (Non-African Ame 40 (>=60 mL/min/1.73m^2); Free T3 2.25 pg/mL (2.18-3.98); Globulin 3.1 g/dL; Glucose 217 mg/dL (74-106); Lipase 43.0 U/L (16.0-77.0); Potassium 4.3 mmol/L (3.5-5.1); Sodium 144 mmol/L (136-145); Thyroid Stimulating Hormone 0.841 uIU/mL (0.358-3.740); Total Protein 6.4 g/dL (6.4-8.2)
[2025-03-03 04:07] LABS: CA 19-9 <2 U/mL (0-35); CEA 3.5 ng/mL (0.0-4.7)
== END 2025-03-02 09:38 | disposition home or self-care (01) ==
LOC: LAB 09:40
PROVIDERS: PCP Family Medicine; Visit Provider Family Medicine
DX: I48.91 Unspecified atrial fibrillation (principal); E78.5 Hyperlipidemia, unspecified; I10 Essential (primary) hypertension; E13.69 Other specified diabetes mellitus with other specified complication; J44.9 Chronic obstructive pulmonary disease, unspecified
CPT/HCPCS: 36415; 80053; 82150; 82378; 83036; 83690; 84436; 84443; 84481; 85025; 86301